=== PATIENT | female | born 1935 | race Caucasian/White ===

== ENCOUNTER 2022-08-10 11:35 | Emergency (ER) | payer MEDICARE, OTHER, SELFPAY ==
[2022-08-10] VITALS (10 sets, daily range): BP systolic 107–176; BP diastolic 53–70; PULSE 67–89; RESP 15–21; TEMP 36.5; O2SAT 95–99; BMI 27.4
--- NOTE | 2022-08-10 11:52 | ECG_ITS ---
The [facility] Test Date: 2022-08-10 Pat Name: Rebeca Gurrola Department: Room: - Gender: Female [employer]: : 1935 Requested By: MAMI DANIELS Order Number: [id number] Reading MD: MAMI DANIELS Measurements Intervals [place] Rate: 69 P: 72 MN: 210 QRS: 70 QRSD: 136 T: 18 QT: 430 QTc: 450 Interpretive Statements 1100 Sinus rhythm 1570 with occasional ventricular premature complexes 2231 First degree AV block 2450 Right bundle branch block 9150 abnormal ECG No previous ECG available for comparison Electronically Signed On 08-11-2022 6:59:51 EDT by MAMI DANIELS
--- NOTE | 2022-08-10 12:00 | XR_ITS ---
The [address] [address] Patient Name: HIRAM MADRID MRN: [id number] date: 1935 Sex: F Assigned Patient Location: ER Current Patient Location: ER Accession/Order Number: [id number] Exam Date: 08/10/2022 12:50 Report Date: 08/10/2022 13:15 At the request of: ROJELIO REYNOLDS Procedure: XR chest 1V EXAMINATION: XR chest 1V HISTORY: syncope COMPARISON: No relevant comparison available. FINDINGS: LUNGS: No significant pulmonary parenchymal abnormalities. VASCULATURE: No increased pulmonary vasculature. PLEURA: No pneumothorax, effusion, or pleural thickening. CARDIAC: No cardiomegaly or cardiac silhouette abnormality. MEDIASTINUM: No visible mass or adenopathy. BONES: No fracture or visible bone lesion. OTHER: Negative. IMPRESSION: 1. No acute cardiopulmonary process or significant chronic interstitial changes. Electronically authenticated by: JESUS BRUNO Date: 08/10/2022 13:15
--- NOTE | 2022-08-10 12:01 | CT_ITS ---
The [address] [address] Patient Name: HIRAM MADRID MRN: [id number] date: 1935 Sex: F Assigned Patient Location: ER Current Patient Location: ER Accession/Order Number: [id number] Exam Date: 08/10/2022 12:50 Report Date: 08/10/2022 13:21 At the request of: ROJELIO REYNOLDS Procedure: CT head/brain wo con EXAMINATION: CT head/brain wo con HISTORY: syncope COMPARISON: No relevant comparison available. TECHNIQUE: Axial CT images were obtained without IV contrast. Dose reduction techniques were achieved by using automated exposure control and/or adjustment of mA and/or kV according to patient size and/or use of iterative reconstruction technique. FINDINGS: BRAIN: No edema, hemorrhage, mass, acute infarction, or inappropriate atrophy. CSF SPACES: No hydrocephalus, subarachnoid hemorrhage, or mass. Appropriate for age. SKULL: No fracture, mass, or other significant visible lesion. SINUSES: No significant mucosal thickening or fluid on the limited views. ORBITS: No appreciable abnormality on the limited views. OTHER: Negative IMPRESSION: 1. No intracranial hemorrhage, mass, or appreciable acute abnormality. 2. Age consistent atrophy and chronic small vessel ischemic changes. Electronically authenticated by: JESUS BRUNO Date: 08/10/2022 13:21
[2022-08-10 12:41] LABS: Basophils Absolute Auto 0.1 10^3/uL (0.0-0.1); Basophils Percent Auto 0.5 % (0.2-2.0); Eosinophils Absolute Auto 0.1 10^3/uL (0.0-0.7); Eosinophils Percent Auto 0.7 % (0.9-7.0); Hematocrit 30.8 % (36.0-48.0); Hemoglobin 10.5 g/dL (12.0-16.0); Immature Granulocytes Abs Auto 0.08 10^3/uL (0.00-0.03); Immature Granulocytes Pct Auto 0.6 % (0.0-0.5); Mean Corpuscular HGB Conc 34.1 g/dL (29.9-35.2); Mean Corpuscular Hemoglobin 30.7 pg (26.7-34.0); Mean Corpuscular Volume 90.1 fL (81.0-99.0); Mean Platelet Volume 8.8 fL (9.5-13.5); Monocytes Absolute Auto 0.7 10^3/uL (0.3-0.8); Monocytes Percent Auto 5.3 % (1.7-12.0); Neutrophils Absolute Auto 10.5 10^3/uL (1.4-6.5); Neutrophils Percent Auto 77.9 % (43.0-75.0); Platelet Count 370 10^3/uL (150-450); Red Blood Count 3.42 10^6/uL (4.20-5.40); White Blood Count 13.5 10^3/uL (4.0-11.0)
[2022-08-10 12:45] LABS: Bilirubin Urine NEGATIVE (NEGATIVE); Blood Urine NEGATIVE (NEGATIVE); Clarity Urine CLEAR (CLEAR); Color Urine LT. YELLOW (YELLOW); Glucose Urine UA NEGATIVE (NEGATIVE); Ketones Urine NEGATIVE (NEGATIVE); Leukocyte Esterase Urine NEGATIVE (NEGATIVE); Nitrite Urine NEGATIVE (NEGATIVE); Protein Urine NEGATIVE (NEG/TRACE); Urobilinogen Urine 0.2 EU/dL (0.2-1.0); pH Urine 7.5 (5.0-9.0)
--- NOTE | 2022-08-10 12:45 | PC.NURSE ---
orthostatic vs obtained lying 153/59 74/min sitting 143/57 71/min standing 103/59 76/min ua obtained and pt walked w standby assistance slight dizziness noted
[2022-08-10 12:46] LABS: Urine Microscopic Indicated NO
[2022-08-10 13:02] LABS: Troponin I High Sensitivity 5.2 pg/mL (4.0-51.3)
[2022-08-10 13:13] LABS: Alanine Aminotransferase 18 U/L (14-59); Albumin Globulin Ratio 1.4; Alkaline Phosphatase 57 U/L (46-116); Anion Gap 12.2; Aspartate Amino Transferase 19 U/L (15-37); BUN Creatinine Ratio 22.9; Bilirubin Total 0.5 mg/dL (0.2-1.0); Calcium 9.3 mg/dL (8.5-10.1); Carbon Dioxide 28.2 mmol/L (21.0-32.0); Chloride 91 mmol/L (98-107); Estimated GFR (African America >60 (>=60); Estimated GFR (Non-African Ame >60 (>=60); Globulin 2.8 g/dL; Glucose 141 mg/dL (74-106); Potassium 3.4 mmol/L (3.5-5.1); Sodium 128 mmol/L (136-145); Total Protein 6.8 g/dL (6.4-8.2)
[2022-08-10] MEDS: 0.9 % SODIUM CHLORIDE 1,000 ML 999 ML IV (13:18)
--- NOTE | 2022-08-10 13:27 | PC.NURSE ---
this nurse talks w [facility] inn regard to pts appt set at 1pm today maritza in [facility] states pt already had all the lab work done today at dr domínguez office and doesnt see a need for the patient to follow up at this time with [facility]
--- NOTE | 2022-08-10 13:34 | ED_ITS ---
HPI - General Adult General Chief complaint: Syncope Stated complaint: SYNCOPE Time Seen by Provider: 08/10/22 12:00 Source: patient Limitations: no limitations History of Present Illness HPI narrative: patient apparently passed out this morning trying to make coffee. She is feeling dizzy off and on for a few weeks. This morning she began to feel dizzy and sat down. The daughter says the patient passed out and was unconscious for about a minute . After awakening, the patient had no complaint other than some continued residual dizziness. Earlier this month the patient had a similar episode and was evaluated at [facility]. She is found have acute urinary tract infection and possible kidney stone. She saw urology for follow-up and is scheduled to have a procedure tomorrow to evaluate whether not she needs a stent. She denies any flank pain or abdominal pain at this time. She's been taking Keflex for that. She denies any chest pain, shortness of breath, headache, visual changes, ringing in the ears, nausea or vomiting. Turning her head does not exacerbate her dizziness. She denies any vertigo symptoms. Related Data Home Medications Medication Instructions Recorded Confirmed amlodipine 10 mg tablet 10 mg PO QDAY 08/10/22 08/10/22 aspirin 81 mg capsule 81 mg PO DAILY 08/10/22 08/10/22 carvedilol 12.5 mg tablet 12.5 mg PO Q12H 08/10/22 08/10/22 cephalexin 500 mg capsule 500 mg PO Q12H 08/10/22 08/10/22 hydrochlorothiazide 25 mg tablet 25 mg PO QDAY 08/10/22 08/10/22 hyoscyamine sulfate 0.125 mg tablet 0.125 mg PO QID PRN dyspepsia 08/10/22 08/10/22 levothyroxine 88 mcg tablet 88 mcg PO QDAY 08/10/22 08/10/22 losartan 100 mg tablet 100 mg PO QDAY 08/10/22 08/10/22 naproxen 500 mg tablet mg 08/10/22 ondansetron 4 mg disintegrating 4 mg PO Q8H PRN nausea and vomiting 08/10/22 08/10/22 tablet oxycodone 5 mg tablet 5 mg PO Q6H PRN pain 08/10/22 08/10/22 potassium chloride 20 mEq 20 meq PO TID 08/10/22 08/10/22 tablet,extended release pravastatin 80 mg tablet 80 mg PO QDAY 08/10/22 08/10/22 tamsulosin 0.4 mg capsule 0.4 mg PO Q24H 08/10/22 08/10/22 Allergies Allergy/AdvReac Type Severity Reaction Status Date / Time atorvastatin Allergy Severe HIVES Verified 08/10/22 11:39 prednisone Allergy Severe Rash Verified 08/10/22 11:39 PFSH PFS Social History Smoking status: Never smoker Exam Narrative Exam Narrative: Nurses notes and vital signs reviewed and patient is not hypoxic. afebrile General: Well-appearing and in no apparent distress. Skin: Warm, dry, no pallor noted. No rash. Head: Normocephalic, atraumatic. Neck: Supple, non-tender. Eye: Pupils are equal, round and EOMI. No scleral icterus. Ears, Nose, Mouth, and Throat: TM are clear, no nasal mucosal hypertrophy. Oral mucosa is moist, no posterior oropharynx erythema, uvula is mid-line Cardiovascular: Regular Rate and Rhythm without murmur, gallop or rub. Respiratory: No accessory muscle use or respiratory distress. Lungs are clear to auscultation, no wheezing, rales or rhonchi Chest Wall: no tenderness Back: No midline thoracic or lumbar vertebral tenderness. No CVA tenderness Musculoskeletal: normal ROM, no calf or popliteal tenderness, no lower extremity edema/swelling GI: Abdomen is soft, non-distended. Normal bowel sounds. No masses appreciated. No tenderness to palpation. No rebound, guarding, or rigidity noted. Neurological: A&O x4. No cranial nerve dysfunction observed. No truncal ataxia. Moves all extremities. Sensation intact. Psychiatric: Cooperative and interactive. Normal mood and affect. Constitutional Vital Signs - 24 hr 08/10/22 11:39 08/10/22 11:57 08/10/22 11:38 Temperature 97.7 F Pulse Rate 73 Pulse Rate [Monitor] 72 Respiratory Rate 20 18 Blood Pressure 176/63 H Blood Pressure [Right Arm] 176/63 H Pulse Oximetry 98 95 97 Oxygen Delivery Method Room Air Room Air 08/10/22 11:38 08/10/22 12:06 08/10/22 12:08 Temperature Pulse Rate 67 71 74 Pulse Rate [Monitor] Respiratory Rate 15 16 21 Blood Pressure 176/63 H 153/59 H 143/57 H Blood Pressure [Right Arm] Pulse Oximetry 95 97 99 Oxygen Delivery Method 08/10/22 12:09 08/10/22 13:58 08/10/22 14:00 Temperature Pulse Rate 77 80 83 Pulse Rate [Monitor] Respiratory Rate 17 20 19 Blood Pressure 107/53 L 143/70 H 152/63 H Blood Pressure [Right Arm] Pulse Oximetry 98 97 Oxygen Delivery Method Course Vital Signs Vital signs: Vital Signs Pulse Rate 73 08/10/22 11:38 Respiratory Rate 18 08/10/22 11:38 Blood Pressure 176/63 H 08/10/22 11:38 Pulse Oximetry 97 08/10/22 11:38 Temperature 97.7 F 08/10/22 11:39 Pulse Rate 83 08/10/22 14:00 Respiratory Rate 19 08/10/22 14:00 Blood Pressure 152/63 H 08/10/22 14:00 Pulse Oximetry 97 08/10/22 14:00 Oxygen Delivery Method Room Air 08/10/22 11:57 Medical Decision Making MDM Narrative Medical decision making narrative: 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 Blood drawn and sent for evaluation. she was sent for noncontrast head CT. The patient was orthostatic with a 50mmHg drop in BP going from supine to standing. she was given a liter of normal saline IV fluid and then a second liter was ordered to be given. Head CT was unremarkable for acute pathology. Labs revealed elevated WBC 13.5 with left shift but UA was negative. Na and Cl decreased at 128 and 91. Potassium normal at 3.4. BUN slightly elevated at 19. Glc 141. Anesthesiologist came and saw the patient in the ER because she was supposed to get PAT at 1pm but could not because she was an ED patient. He said she is OK to get the procedure tomorrow. On recheck after the fluid boluses, the patient's repeat orthostatics no longer show a significant decrease in her systolic or diastolic BP. She was discharged home with recommendation to increase her salt and fluid intake and to keep her scheduled procedure tomorrow. Lab Data Lab results reviewed: Yes I reviewed the patient's lab results Labs: Lab Results 08/10/22 08/10/22 Range/Units 12:13 12:26 WBC 13.5 H (4.0-11.0) 10^3/uL RBC 3.42 L (4.20-5.40) 10^6/uL Hgb 10.5 L (12.0-16.0) g/dL Hct 30.8 L (36.0-48.0) % MCV 90.1 (81.0-99.0) fL MCH 30.7 (26.7-34.0) pg MCHC 34.1 (29.9-35.2) g/dL RDW 13.0 (11.0-15.0) % Plt Count 370 (150-450) 10^3/uL MPV 8.8 L (9.5-13.5) fL Neut % (Auto) 77.9 H (43.0-75.0) % Lymph % (Auto) 15.0 L (20.5-60.0) % [place] % (Auto) 5.3 (1.7-12.0) % Eos % (Auto) 0.7 L (0.9-7.0) % Baso % (Auto) 0.5 (0.2-2.0) % Neut # (Auto) 10.5 H (1.4-6.5) 10^3/uL Lymph # (Auto) 2.0 (1.2-3.8) 10^3/uL [place] # (Auto) 0.7 (0.3-0.8) 10^3/uL Eos # (Auto) 0.1 (0.0-0.7) 10^3/uL Baso # (Auto) 0.1 (0.0-0.1) 10^3/uL Abs Immat Gran (auto) 0.08 H (0.00-0.03) 10^3/uL Imm/Tot Granulo (auto) 0.6 H (0.0-0.5) % Sodium 128 L (136-145) mmol/L Potassium 3.4 L (3.5-5.1) mmol/L Chloride 91 L (98-107) mmol/L Carbon Dioxide 28.2 (21.0-32.0) mmol/L Anion Gap 12.2 BUN 19.0 H (7.0-18.0) mg/dL Creatinine 0.83 (0.55-1.02) mg/dL Est GFR ( Amer) >60 (>=60) Est GFR (Non-Af Amer) >60 (>=60) BUN/Creatinine Ratio 22.9 Glucose 141 H (74-106) mg/dL Calcium 9.3 (8.5-10.1) mg/dL Total Bilirubin 0.5 (0.2-1.0) mg/dL AST 19 (15-37) U/L ALT 18 (14-59) U/L Alkaline Phosphatase 57 (46-116) U/L Troponin I High Sens 5.2 (4.0-51.3) pg/mL Total Protein 6.8 (6.4-8.2) g/dL Albumin 4.0 (3.4-5.0) g/dL Globulin 2.8 g/dL Albumin/Globulin Ratio 1.4 Urine Color Lt. yellow (YELLOW) Urine Clarity Clear (CLEAR) Urine pH 7.5 (5.0-9.0) Ur Specific [place] 1.010 (1.005-1.025) Urine Protein Negative (NEG/TRACE) mg/dL Urine Glucose (UA) Negative (NEGATIVE) mg/dL Urine Ketones Negative (NEGATIVE) mg/dL Urine Occult Blood Negative (NEGATIVE) Urine Nitrite Negative (NEGATIVE) Urine Bilirubin Negative (NEGATIVE) Urine Urobilinogen 0.2 (0.2-1.0) EU/dL Ur Leukocyte Esterase Negative (NEGATIVE) Imaging Data CT scan - head: Attestation: I have reviewed the pertinent imaging results. Radiologist's impression: Patient Name: HIRAM MADRID MRN: [id number] date: 1935 Sex: F Assigned Patient Location: Current Patient Location: Accession/Order Number: [id number] Exam Date: 08/10/2022 12:50 Report Date: 08/10/2022 13:21 At the request of: ROJELIO REYNOLDS Procedure: CT head/brain wo con EXAMINATION: CT head/brain wo con HISTORY: syncope COMPARISON: No relevant comparison available. TECHNIQUE: Axial CT images were obtained without IV contrast. Dose reduction techniques were achieved by using automated exposure control and/or adjustment of mA and/or kV according to patient size and/or use of iterative reconstruction technique. FINDINGS: BRAIN: No edema, hemorrhage, mass, acute infarction, or inappropriate atrophy. CSF SPACES: No hydrocephalus, subarachnoid hemorrhage, or mass. Appropriate for age. SKULL: No fracture, mass, or other significant visible lesion. SINUSES: No significant mucosal thickening or fluid on the limited views. ORBITS: No appreciable abnormality on the limited views. OTHER: Negative IMPRESSION: 1. No intracranial hemorrhage, mass, or appreciable acute abnormality. 2. Age consistent atrophy and chronic small vessel ischemic changes. Electronically authenticated by: JESUS BRUNO Date: 08/10/2022 13:21 ECG Data Interpretation: EKG interpretation: Emergency Department physician interpretation. Normal sinus rhythm at 69bpm. 1st degree AV block. Right bundle branch block. PVC noted. No ST segment elevation or depression. Discharge Plan Discharge Chief Complaint: Syncope Clinical Impression: Syncope due to orthostatic hypotension, Orthostasis, Acute hyponatremia Patient Disposition: Home, Self-Care Time of Disposition Decision: 14:52 Prescriptions / Home Meds: No Action amlodipine 10 mg tablet 10 mg PO QDAY carvedilol 12.5 mg tablet 12.5 mg PO Q12H cephalexin 500 mg capsule 500 mg PO Q12H hydrochlorothiazide 25 mg tablet 25 mg PO QDAY levothyroxine 88 mcg tablet 88 mcg PO QDAY losartan 100 mg tablet 100 mg PO QDAY naproxen 500 mg tablet ondansetron 4 mg tablet,disintegrating 4 mg PO Q8H PRN (Reason: nausea and vomiting) oxycodone 5 mg tablet 5 mg PO Q6H PRN (Reason: pain) pravastatin 80 mg tablet 80 mg PO QDAY tamsulosin 0.4 mg capsule 0.4 mg PO Q24H potassium chloride 20 mEq tablet extended release 20 meq PO TID hyoscyamine sulfate 0.125 mg tablet 0.125 mg PO QID PRN (Reason: dyspepsia) aspirin 81 mg capsule 81 mg PO DAILY Instructions: Hyponatremia (ED), Syncope (ED) Stand Alone Forms: Portal Instructions Referrals: Addy Clemente MD [Primary Care Provider] - 1 week
[2022-08-10] MEDS: 0.9 % SODIUM CHLORIDE 1,000 ML 1000 ML IV (14:07)
--- NOTE | 2022-08-10 15:00 | PC.NURSE ---
lying 89/min 154/66 sitting 91/min 148/63 standing 91/min 144/56
== END 2022-08-10 15:37 | disposition home or self-care (01) ==
PROVIDERS: Emergency Provider Emergency Medicine; PCP Family Medicine
DX: I95.1 Orthostatic hypotension (principal); E87.1 Hypo-osmolality and hyponatremia; Z87.440 Personal history of urinary (tract) infections; Z79.82 Long term (current) use of aspirin; Z79.899 Other long term (current) drug therapy; Z79.890 Hormone replacement therapy
CPT/HCPCS: 36415; 70450; 71045; 80053; 81003; 84484; 85025; 93005; 99285

== ENCOUNTER 2022-08-11 11:43 | Day surgery (SDC) | payer MEDICARE, OTHER, SELFPAY ==
[2022-08-11] VITALS (10 sets, daily range): BP systolic 139–162; BP diastolic 62–84; PULSE 78–89; RESP 14–89; TEMP 36.6; O2SAT 95–99; BMI 27.2
[2022-08-11] MEDS: LACTATED RINGER'S SOLUTION 1,000 ML 50 ML IV (12:41)
[2022-08-11] MEDS: CEFAZOLIN SODIUM/DEXTROSE,ISO 1 GM/50 ML IV.SOLN IV (14:55)
[2022-08-11] MEDS: IOHEXOL 240 MG/ML - 50 ML VIAL INJ (15:35)
--- NOTE | 2022-08-11 15:53 | P.URON_ITS ---
Urology Surgery Operative Note Operative Note Procedure Date: 08/11/22 Time Out Performed: yes Pre-op Diagnosis: right flank pain and right hydroureteronephrosis Post-op Diagnosis: same plus distal ureteral stenosis Procedures performed: #1. Cystoscopy. #2. Right retrograde pyelogram. #3. Right rigid ureteral dilation. #4. Right ureteroscopy. #5. Placement of 7 Hungarian variable length right ureteral stent Anesthesia: EMMA Primary Surgeon: Raymond Brown Complications: none Estimated blood loss (mL): 0 Findings: distal right ureteral stenosis Specimens: none Drains: none Indications for Procedures: this lady has right flank pain and was found to have right hydroureteronephrosis without any evidence of stones by CT scan. She now presents for cystoscopy retrograde pyelogram ureteroscopy and possible stent placement. She has signed an informed consent after all the risks were explained. Detailed description of Procedure: The patient was brought to the operating room and placed on the operating room table in the supine position. SCDs were placed on the lower extremities and turned on and functioning during the entire case. Timeout was done by all parties in the room. We all agreed upon the patient's identification and the planned procedures for this patient. Genn. anesthesia was then administered. The patient was then repositioned into the modified dorsal lithotomy position. All pressure points were satisfactorily padded. Genitalia were sterilely prepped and draped in usual fashion.I started by passing a 22 Hungarian Olympus cystoscope per urethra and into the bladder. Panendoscopy showed no evidence of any tumors or stones. She had a moderate cystocele. I then passed an 8 Hungarian cone-tipped catheter and did a right retrograde pyelogram. This showed narrowed distal 3 cm of the ureter and narrowed UPJ region and hydronephrosis. I then passed a Glidewire through the scope and guided up the left ureter into the kidney. I then used a 8 and 10 Hungarian rigid dilator to dilate the distal ureter. This was actually difficult due to significant stenosis. I then removed the cystoscope and then passed a flexible ureteroscope over the wire and into the ureter. It was difficult to get the ureteroscope through the distal ureter. As I ascended up the ureter I found no evidence of any stones or neoplasms. UPJ although narrow it was not pathologically stenosed. Ureteroscope was removed . I then backloaded the cystoscope over the wire and passed it into the bladder. I then slid a 7 Hungarian variable length ureteral stent over the wire up into the kidney. The wire was removed and there were good curls in the kidney and in the bladder. The anesthetic was then reversed. She was then transferred to a [facility] bed and wheeled to PACU in stable condition.
== END 2022-08-11 17:10 | disposition home or self-care (01) ==
PROVIDERS: PCP Family Medicine; Visit Provider Urology
PROC: (CPT 52332; principal; 2022-08-11 13:00)
DX: N13.1 Hydronephrosis with ureteral stricture, not elsewhere classified (principal); R10.9 Unspecified abdominal pain; M19.90 Unspecified osteoarthritis, unspecified site; E78.5 Hyperlipidemia, unspecified; G62.9 Polyneuropathy, unspecified; E07.9 Disorder of thyroid, unspecified; I10 Essential (primary) hypertension; Z79.01 Long term (current) use of anticoagulants; I48.91 Unspecified atrial fibrillation; H91.90 Unspecified hearing loss, unspecified ear; Z90.49 Acquired absence of other specified parts of digestive tract; Z79.82 Long term (current) use of aspirin; Z79.899 Other long term (current) drug therapy
CPT/HCPCS: 52332; 52344; 74420; C1874; J2704; Q9966

== ENCOUNTER 2022-08-15 14:23 | Outpatient (OUT) | payer MEDICARE, OTHER, SELFPAY ==
[2022-08-15 15:23] LABS: Bilirubin Urine NEGATIVE (NEGATIVE); Blood Urine LARGE (NEGATIVE); Color Urine LT. YELLOW (YELLOW); Glucose Urine UA NEGATIVE (NEGATIVE); Ketones Urine NEGATIVE (NEGATIVE); Leukocyte Esterase Urine SMALL (NEGATIVE); Nitrite Urine NEGATIVE (NEGATIVE); Protein Urine 30 mg/dL (NEG/TRACE); Urobilinogen Urine 0.2 EU/dL (0.2-1.0); pH Urine 7.5 (5.0-9.0)
[2022-08-15 15:25] LABS: Alanine Aminotransferase 25 U/L (14-59); Albumin Globulin Ratio 0.9; Albumin Level 2.9 g/dL (3.4-5.0); Alkaline Phosphatase 56 U/L (46-116); Aspartate Amino Transferase 29 U/L (15-37); BUN Creatinine Ratio 16.3; Bilirubin Total 0.3 mg/dL (0.2-1.0); Calcium 8.6 mg/dL (8.5-10.1); Carbon Dioxide 25.9 mmol/L (21.0-32.0); Chloride 89 mmol/L (98-107); Estimated GFR (African America >60 (>=60); Estimated GFR (Non-African Ame >60 (>=60); Globulin 3.3 g/dL; Glucose 130 mg/dL (74-106); Sodium 125 mmol/L (136-145); Total Protein 6.2 g/dL (6.4-8.2)
[2022-08-15 15:27] LABS: Basophils Absolute Auto 0.1 10^3/uL (0.0-0.1); Basophils Percent Auto 0.2 % (0.2-2.0); Eosinophils Absolute Auto 0.1 10^3/uL (0.0-0.7); Eosinophils Percent Auto 0.4 % (0.9-7.0); Hemoglobin 7.4 g/dL (12.0-16.0); Immature Granulocytes Abs Auto 0.32 10^3/uL (0.00-0.03); Immature Granulocytes Pct Auto 1.3 % (0.0-0.5); Lymphocytes Absolute Auto 3.1 10^3/uL (1.2-3.8); Lymphocytes Percent Auto 12.3 % (20.5-60.0); Mean Corpuscular HGB Conc 39.4 g/dL (29.9-35.2); Mean Corpuscular Hemoglobin 36.6 pg (26.7-34.0); Mean Corpuscular Volume 93.1 fL (81.0-99.0); Mean Platelet Volume 9.3 fL (9.5-13.5); Monocytes Absolute Auto 1.5 10^3/uL (0.3-0.8); Monocytes Percent Auto 6.1 % (1.7-12.0); Neutrophils Absolute Auto 19.9 10^3/uL (1.4-6.5); Neutrophils Percent Auto 79.7 % (43.0-75.0); Platelet Count 395 10^3/uL (150-450); Red Blood Count 2.02 10^6/uL (4.20-5.40); Red Cell Distribution Width 13.1 % (11.0-15.0)
[2022-08-15 15:32] LABS: Potassium 2.9 mmol/L (3.5-5.1)
[2022-08-15 15:33] LABS: Clarity Urine SLIGHTLY CLOUDY (CLEAR); Hematocrit 18.8 % (36.0-48.0)
[2022-08-15 15:34] LABS: WBC Urine 0-2 #/HPF (NONE SEEN)
[2022-08-15 15:35] LABS: Bacteria Urine NONE SEEN #/HPF (NONE SEEN); Cast Seen? NONE SEEN #/LPF (NONE SEEN); Crystals Seen? None Seen #/HPF (None Seen); Mucus Urine NONE SEEN (NONE SEEN); RBC Urine 20-50 #/HPF (0-2); Squamous Epithelial Cell Urine FEW #/LPF (NONE/RARE); Urine Culture Indicated ALREADY ORDERED
== END 2022-08-15 14:24 | disposition home or self-care (01) ==
LOC: LAB 14:25
PROVIDERS: PCP Family Medicine; Visit Provider Family Medicine
DX: R55 Syncope and collapse (principal); R53.83 Other fatigue
CPT/HCPCS: 36415; 80053; 81001; 85025; 87086

== ENCOUNTER 2022-08-16 12:16 | Observation (INO) | payer MEDICARE, OTHER, SELFPAY ==
[2022-08-16] VITALS (18 sets, daily range): BP systolic 134–164; BP diastolic 55–73; PULSE 63–85; RESP 16–18; TEMP 36.7–36.9; O2SAT 95–98; BMI 26.9
--- NOTE | 2022-08-16 12:35 | XR_ITS ---
The [address] [address] Patient Name: HIRAM MADRID MRN: [id number] date: 1935 Sex: F Assigned Patient Location: MS Current Patient Location: Accession/Order Number: [id number] Exam Date: 08/16/2022 13:40 Report Date: 08/16/2022 14:04 At the request of: MAMI DANIELS Procedure: XR acute abdomen series EXAMINATION: XR acute abdomen series 08/16/2022 11:00 AM PDT HISTORY: Abd Pain COMPARISONS: Chest x-ray 08/10/2022. FINDINGS: Chest findings: Lines/tubes/other: None. Heart and mediastinum: The heart and the mediastinum are within normal limits for technique. Bones: No acute osseous abnormality. Lungs: The lungs are clear. There is no evidence of pneumonia or pulmonary edema. Pleura: There is no significant pleural effusion or pneumothorax. Other: None. Abdominal findings: Nonobstructive bowel gas pattern. No pneumoperitoneum, pneumatosis, or portal venous gas. No abnormal soft tissue calcifications. Stool burden is mildly above-average. Right-sided double-J ureteral stent present. Lumbar fusion hardware and clips in the right upper quadrant noted. Serpiginous vascular calcification the left upper quadrant. Ovoid opacity projecting over the proximal right ureter is of uncertain etiology. IMPRESSION: 1. No acute cardiopulmonary abnormality. 2. Ovoid opacity projecting over the right proximal ureter measuring 17 mm is of uncertain etiology. 3. Right-sided double-J ureteral stent which appears appropriately positioned. 4. Mildly above-average stool burden. Electronically authenticated by: JOE WALLACE Date: 08/16/2022 14:04
[2022-08-16 13:04] LABS: Basophils Absolute Auto 0.1 10^3/uL (0.0-0.1); Basophils Percent Auto 0.4 % (0.2-2.0); Eosinophils Absolute Auto 0.3 10^3/uL (0.0-0.7); Eosinophils Percent Auto 1.7 % (0.9-7.0); Hemoglobin 7.2 g/dL (12.0-16.0); Immature Granulocytes Abs Auto 0.28 10^3/uL (0.00-0.03); Immature Granulocytes Pct Auto 1.9 % (0.0-0.5); Lymphocytes Absolute Auto 2.9 10^3/uL (1.2-3.8); Lymphocytes Percent Auto 19.8 % (20.5-60.0); Mean Corpuscular HGB Conc 35.5 g/dL (29.9-35.2); Mean Corpuscular Hemoglobin 31.3 pg (26.7-34.0); Mean Corpuscular Volume 88.3 fL (81.0-99.0); Mean Platelet Volume 8.7 fL (9.5-13.5); Monocytes Percent Auto 6.8 % (1.7-12.0); Neutrophils Absolute Auto 10.1 10^3/uL (1.4-6.5); Neutrophils Percent Auto 69.4 % (43.0-75.0); Platelet Count 403 10^3/uL (150-450); Red Cell Distribution Width 13.2 % (11.0-15.0); White Blood Count 14.6 10^3/uL (4.0-11.0)
[2022-08-16 13:15] LABS: Hematocrit 20.3 % (36.0-48.0)
[2022-08-16 13:23] LABS: Lactate/Lactic Acid 1.4 mmol/L (0.4-2.0)
[2022-08-16 13:29] LABS: Alanine Aminotransferase 26 U/L (14-59); Albumin Globulin Ratio 0.9; Albumin Level 2.9 g/dL (3.4-5.0); Alkaline Phosphatase 56 U/L (46-116); Anion Gap 12.8; Aspartate Amino Transferase 20 U/L (15-37); BUN Creatinine Ratio 15.5; Bilirubin Total 0.3 mg/dL (0.2-1.0); Calcium 8.9 mg/dL (8.5-10.1); Carbon Dioxide 27.1 mmol/L (21.0-32.0); Chloride 89 mmol/L (98-107); Estimated GFR (African America >60 (>=60); Estimated GFR (Non-African Ame >60 (>=60); Globulin 3.2 g/dL; Glucose 106 mg/dL (74-106); Magnesium 1.1 mg/dL (1.8-2.4); Sodium 126 mmol/L (136-145); Thyroid Stimulating Hormone 2.166 uIU/mL (0.358-3.740); Total Protein 6.1 g/dL (6.4-8.2)
[2022-08-16 13:47] LABS: Potassium 2.9 mmol/L (3.5-5.1)
[2022-08-16] MEDS: POTASSIUM CHLORIDE 10 MEQ ER TABLET 20 MEQ PO ×2 (15:03→21:34)
[2022-08-16] MEDS: FERROUS SULFATE 325 MG TABLET PO (15:03)
[2022-08-16] MEDS: PANTOPRAZOLE SODIUM 40 MG VIAL IV (15:03)
[2022-08-16] MEDS: 0.9 % SODIUM CHLORIDE 250 ML IV.SOLN IV (16:30)
[2022-08-16] MEDS: POTASSIUM CHLORIDE 40 MEQ in 0.9 % SODIUM CHLORIDE 250 ML 67.5 MEQ IV (16:33)
[2022-08-16] MEDS: HYOSCYAMINE SULFATE 0.125 MG TAB.SUBL SL (20:19)
[2022-08-16] MEDS: CARVEDILOL 12.5 MG TABLET PO (21:34)
[2022-08-17] VITALS (10 sets, daily range): BP systolic 120–128; BP diastolic 63–64; PULSE 69–87; RESP 16–18; TEMP 37.1; O2SAT 94–95
[2022-08-17 04:52] LABS: Basophils Absolute Auto 0.1 10^3/uL (0.0-0.1); Basophils Percent Auto 0.8 % (0.2-2.0); Eosinophils Absolute Auto 0.3 10^3/uL (0.0-0.7); Hematocrit 28.4 % (36.0-48.0); Hemoglobin 9.7 g/dL (12.0-16.0); Immature Granulocytes Abs Auto 0.28 10^3/uL (0.00-0.03); Immature Granulocytes Pct Auto 1.9 % (0.0-0.5); Lymphocytes Absolute Auto 2.8 10^3/uL (1.2-3.8); Lymphocytes Percent Auto 19.5 % (20.5-60.0); Mean Corpuscular HGB Conc 34.2 g/dL (29.9-35.2); Mean Corpuscular Hemoglobin 29.2 pg (26.7-34.0); Mean Corpuscular Volume 85.5 fL (81.0-99.0); Mean Platelet Volume 8.9 fL (9.5-13.5); Monocytes Absolute Auto 1.2 10^3/uL (0.3-0.8); Monocytes Percent Auto 8.4 % (1.7-12.0); Neutrophils Absolute Auto 9.8 10^3/uL (1.4-6.5); Neutrophils Percent Auto 67.4 % (43.0-75.0); Platelet Count 353 10^3/uL (150-450); Red Blood Count 3.32 10^6/uL (4.20-5.40); Red Cell Distribution Width 17.9 % (11.0-15.0); White Blood Count 14.5 10^3/uL (4.0-11.0)
[2022-08-17 05:14] LABS: Alanine Aminotransferase 24 U/L (14-59); Albumin Globulin Ratio 0.8; Albumin Level 2.6 g/dL (3.4-5.0); Alkaline Phosphatase 48 U/L (46-116); Anion Gap 11.4; Aspartate Amino Transferase 23 U/L (15-37); BUN Creatinine Ratio 17.8; Bilirubin Total 1.3 mg/dL (0.2-1.0); Calcium 8.3 mg/dL (8.5-10.1); Carbon Dioxide 26.4 mmol/L (21.0-32.0); Chloride 97 mmol/L (98-107); Estimated GFR (African America >60 (>=60); Estimated GFR (Non-African Ame >60 (>=60); Globulin 3.2 g/dL; Glucose 116 mg/dL (74-106); Magnesium 1.2 mg/dL (1.8-2.4); Potassium 3.8 mmol/L (3.5-5.1); Sodium 131 mmol/L (136-145); Total Protein 5.8 g/dL (6.4-8.2)
[2022-08-17] MEDS: LEVOTHYROXINE SODIUM 88 MCG TABLET PO (05:57)
[2022-08-17] MEDS: POTASSIUM CHLORIDE 10 MEQ ER TABLET 20 MEQ PO (05:57)
--- NOTE | 2022-08-17 08:27 | P.PN_ITS ---
Progress Note: Subjective Subjective Interval history: Today Exam Constitutional Vital Signs - 24 hr 08/16/22 12:49 08/16/22 13:12 08/16/22 13:28 Temperature 98.0 F 98.0 F Pulse Rate 77 77 Respiratory Rate 16 16 Blood Pressure Blood Pressure [Left Arm] 148/57 H 148/57 H Pulse Oximetry 97 97 96 Oxygen Delivery Method Room Air Room Air Room Air 08/16/22 16:30 08/16/22 17:11 08/16/22 17:27 Temperature 98.1 F 98.1 F Pulse Rate 78 82 79 Respiratory Rate 16 16 Blood Pressure 151/55 H 164/64 H Blood Pressure [Left Arm] Pulse Oximetry 97 97 Oxygen Delivery Method Room Air Room Air 08/16/22 18:22 08/16/22 18:27 08/16/22 18:50 Temperature 98.2 F Pulse Rate 85 81 Respiratory Rate 16 Blood Pressure 154/63 H Blood Pressure [Left Arm] Pulse Oximetry 97 98 Oxygen Delivery Method Room Air Room Air 08/16/22 19:27 08/16/22 20:12 08/16/22 20:37 Temperature 98.2 F 98.2 F 98.1 F Pulse Rate 79 79 63 Respiratory Rate 17 17 17 Blood Pressure 152/69 H 158/69 H 148/73 H Blood Pressure [Left Arm] Pulse Oximetry 96 Oxygen Delivery Method Room Air Room Air 08/16/22 20:32 08/16/22 20:48 08/16/22 21:32 Temperature 98.1 F 98.4 F Pulse Rate 63 79 77 Respiratory Rate 17 16 Blood Pressure 148/73 H 142/68 H Blood Pressure [Left Arm] Pulse Oximetry 96 96 Oxygen Delivery Method 08/16/22 22:00 08/16/22 22:32 08/16/22 23:32 Temperature 98.5 F 98.4 F Pulse Rate 72 77 77 Respiratory Rate 17 18 Blood Pressure 134/70 H 155/67 H Blood Pressure [Left Arm] Pulse Oximetry 95 Oxygen Delivery Method Room Air 08/17/22 00:00 08/17/22 02:04 08/17/22 02:00 Temperature 98.7 F Pulse Rate 75 71 69 Respiratory Rate 18 Blood Pressure 128/63 H Blood Pressure [Left Arm] Pulse Oximetry 94 L Oxygen Delivery Method Room Air 08/17/22 04:00 08/17/22 06:00 08/17/22 05:00 Temperature 98.8 F Pulse Rate 70 75 76 Respiratory Rate 16 Blood Pressure Blood Pressure [Left Arm] 120/64 H Pulse Oximetry 95 Oxygen Delivery Method 08/17/22 08:01 Temperature Pulse Rate 87 Respiratory Rate Blood Pressure Blood Pressure [Left Arm] Pulse Oximetry Oxygen Delivery Method Common normals: no apparent distress Exam limitations: no altered mental status Chest Common normals: inspection of chest normal Respiratory Common normals: normal respiratory effort, no retractions and no use of accessory muscles Cardio Common normals: no JVD, regular rate, regular rhythm and S1 normal heart sound GI Common normals: Normal to inspection, nondistended, normoactive bowel sounds present Progress Note: Objective Labs Labs: Short CBC 08/16/22 08/17/22 Range/Units 12:57 04:14 WBC 14.6 H 14.5 H (4.0-11.0) 10^3/uL Hgb 7.2 L 9.7 L (12.0-16.0) g/dL Hct 20.3 L* 28.4 L (36.0-48.0) % Plt Count 403 353 (150-450) 10^3/uL BMP 08/16/22 08/17/22 12:57 04:14 Sodium 126 L 131 L Potassium 2.9 L* 3.8 Chloride 89 L 97 L Carbon Dioxide 27.1 26.4 BUN 13.0 13.0 Creatinine 0.84 0.73 Glucose 106 116 H Calcium 8.9 8.3 L Liver Function 08/16/22 08/17/22 Range/Units 12:57 04:14 Total Bilirubin 0.3 1.3 H (0.2-1.0) mg/dL AST 20 23 (15-37) U/L ALT 26 24 (14-59) U/L Alkaline Phosphatase 56 48 (46-116) U/L Albumin 2.9 L 2.6 L (3.4-5.0) g/dL Progress Note: A&P Assessment and Plan (1) Syncope due to orthostatic hypotension: (2) Orthostasis: (3) Acute hyponatremia: Plan Acute upper contact gastrointestinal blood loss anemia secondary to acute upper gastrointestinal bleeding-bleeding appears to have stopped, will repeat CBC later today just to ensure, if stable later today and patient ambulating well with walker she can be discharged home in improving condition. Medications see list. Follow-up with me in the office as an outpatient within the next week. Hyponatremia-improved, will monitor as an outpatient [id number] as an outpatient
--- NOTE | 2022-08-17 08:42 | CM.NOTE ---
Rounds made with Dr. Clemente, pt verbalizes feeling much better today. Pt up ad aleta in room. H&H recheck this afternoon and PT evaluation today. If ok will discharge to home this afternoon. SW will follow for any discharge needs. Pt denies any discharge needs at present time. Pt does have walker at home and feels stable with ambulation. Pt is going to stay at daughter's home a couple days after discharge from hospital to insure safety transitioning to home alone.
[2022-08-17] MEDS: PANTOPRAZOLE SODIUM 40 MG VIAL IV (09:21)
[2022-08-17] MEDS: CARVEDILOL 12.5 MG TABLET PO (09:21)
[2022-08-17] MEDS: FERROUS SULFATE 325 MG TABLET PO (09:21)
[2022-08-17 13:15] LABS: Basophils Absolute Auto 0.1 10^3/uL (0.0-0.1); Basophils Percent Auto 0.9 % (0.2-2.0); Eosinophils Absolute Auto 0.4 10^3/uL (0.0-0.7); Eosinophils Percent Auto 2.4 % (0.9-7.0); Hematocrit 34.3 % (36.0-48.0); Hemoglobin 11.6 g/dL (12.0-16.0); Immature Granulocytes Abs Auto 0.37 10^3/uL (0.00-0.03); Immature Granulocytes Pct Auto 2.4 % (0.0-0.5); Lymphocytes Percent Auto 19.3 % (20.5-60.0); Mean Corpuscular HGB Conc 33.8 g/dL (29.9-35.2); Mean Corpuscular Hemoglobin 28.7 pg (26.7-34.0); Mean Corpuscular Volume 84.9 fL (81.0-99.0); Mean Platelet Volume 8.3 fL (9.5-13.5); Monocytes Absolute Auto 1.3 10^3/uL (0.3-0.8); Monocytes Percent Auto 8.3 % (1.7-12.0); Neutrophils Absolute Auto 10.2 10^3/uL (1.4-6.5); Neutrophils Percent Auto 66.7 % (43.0-75.0); Platelet Count 404 10^3/uL (150-450); Red Blood Count 4.04 10^6/uL (4.20-5.40); Red Cell Distribution Width 18.8 % (11.0-15.0); White Blood Count 15.3 10^3/uL (4.0-11.0)
--- NOTE | 2022-08-17 13:33 | CM.NOTE ---
Medicare Outpatient Observation Notice discussed with pt, pt verbalizes understanding and signs paper. Original given to pt and copy placed on pt's chart.
== END 2022-08-17 13:57 | disposition home or self-care (01) ==
PROVIDERS: Admitting Provider Family Medicine; PCP Family Medicine; Visit Provider Family Medicine
DX: D62 Acute posthemorrhagic anemia (principal); I95.1 Orthostatic hypotension; E87.1 Hypo-osmolality and hyponatremia; K92.2 Gastrointestinal hemorrhage, unspecified; E87.6 Hypokalemia; Z79.899 Other long term (current) drug therapy; Z79.890 Hormone replacement therapy
CPT/HCPCS: 36415; 36430; 74022; 80053; 81001; 83605; 83735; 84436; 84443; 85025; 86677; 86850; 86900; 86901; 87493; 87507; 94667; 94668; 94761; 96365; 96366; 96375; 96376; 97161; 97530; G0378; G0379; J3480; P9016

== ENCOUNTER 2022-10-14 09:56 | Outpatient (OUT) | payer MEDICARE, OTHER, SELFPAY ==
[2022-10-14 10:22] LABS: Basophils Absolute Auto 0.1 10^3/uL (0.0-0.1); Basophils Percent Auto 0.9 % (0.2-2.0); Eosinophils Absolute Auto 0.3 10^3/uL (0.0-0.7); Eosinophils Percent Auto 3.4 % (0.9-7.0); Hematocrit 38.6 % (36.0-48.0); Hemoglobin 13.1 g/dL (12.0-16.0); Immature Granulocytes Abs Auto 0.04 10^3/uL (0.00-0.03); Immature Granulocytes Pct Auto 0.5 % (0.0-0.5); Lymphocytes Percent Auto 24.6 % (20.5-60.0); Mean Corpuscular HGB Conc 33.9 g/dL (29.9-35.2); Mean Corpuscular Hemoglobin 30.3 pg (26.7-34.0); Mean Corpuscular Volume 89.4 fL (81.0-99.0); Mean Platelet Volume 8.4 fL (9.5-13.5); Monocytes Absolute Auto 0.6 10^3/uL (0.3-0.8); Monocytes Percent Auto 7.6 % (1.7-12.0); Neutrophils Absolute Auto 5.1 10^3/uL (1.4-6.5); Platelet Count 418 10^3/uL (150-450); Red Blood Count 4.32 10^6/uL (4.20-5.40); Red Cell Distribution Width 14.1 % (11.0-15.0); White Blood Count 8.1 10^3/uL (4.0-11.0)
[2022-10-14 11:52] LABS: Alanine Aminotransferase 22 U/L (14-59); Albumin Level 3.8 g/dL (3.4-5.0); Alkaline Phosphatase 66 U/L (46-116); Anion Gap 14.3; Aspartate Amino Transferase 20 U/L (15-37); BUN Creatinine Ratio 13.4; Bilirubin Total 0.4 mg/dL (0.2-1.0); Calcium 9.7 mg/dL (8.5-10.1); Carbon Dioxide 28.3 mmol/L (21.0-32.0); Chloride 92 mmol/L (98-107); Estimated GFR (African America >60 (>=60); Estimated GFR (Non-African Ame >60 (>=60); Globulin 3.9 g/dL; Glucose 105 mg/dL (74-106); Potassium 3.6 mmol/L (3.5-5.1); Sodium 131 mmol/L (136-145); Total Protein 7.7 g/dL (6.4-8.2)
== END 2022-10-14 09:57 | disposition home or self-care (01) ==
LOC: LAB 09:59
PROVIDERS: PCP Family Medicine; Visit Provider Nurse Practitioner
DX: I10 Essential (primary) hypertension (principal); R60.0 Localized edema; R55 Syncope and collapse; E78.2 Mixed hyperlipidemia
CPT/HCPCS: 36415; 80053; 85025

== ENCOUNTER 2022-10-31 11:35 | Outpatient (OUT) | payer MEDICARE, OTHER, SELFPAY ==
[2022-10-31 12:34] LABS: Anion Gap 10.8; BUN Creatinine Ratio 17.3; Calcium 9.9 mg/dL (8.5-10.1); Carbon Dioxide 28.9 mmol/L (21.0-32.0); Chloride 92 mmol/L (98-107); Estimated GFR (African America >60 (>=60); Estimated GFR (Non-African Ame >60 (>=60); Glucose 107 mg/dL (74-106); Potassium 3.7 mmol/L (3.5-5.1); Sodium 128 mmol/L (136-145)
== END 2022-10-31 11:36 | disposition home or self-care (01) ==
LOC: LAB 11:36
PROVIDERS: PCP Family Medicine; Visit Provider Nurse Practitioner
DX: I10 Essential (primary) hypertension (principal)
CPT/HCPCS: 36415; 80048

== ENCOUNTER 2022-11-10 20:26 | Observation (INO) | payer MEDICARE, OTHER, SELFPAY ==
[2022-11-10 20:30] VITALS: BP 210/80; PULSE 86; RESP 16; TEMP 36.8; O2SAT 98; BMI 26.2
--- NOTE | 2022-11-10 20:50 | ECG_ITS ---
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
--- NOTE | 2022-11-10 20:52 | ED_ITS ---
HPI - Abdominal Pain General Chief Complaint: Abdominal Pain Stated Complaint: syncopy and hematuria Time Seen by Provider: 11/10/22 20:50 Source: patient and family History of Present Illness HPI narrative: This 86-year-old female with a history of syncopal events who was admitted in July and required 2 units of blood after having some gastrointestinal bleeding presents for evaluation of recurrent gastrointestinal bleeding and left lower quadrant abdominal pain. The patient states she was shopping in [place] when she felt the need to have a bowel movement. She went to the bathroom and had a bowel movement and shortly thereafter had an episode where she felt dizzy like she was going to faint. She states she may have passed out for a couple of seconds but somebody was able to get her into a wheelchair before she fell. She states she then went home and rested. He states she had some mild stomach cramping and took some Pepto-Bismol and when she got up to use the bathroom there was a small pool of blood in the toilet. She states this happened approximately 3 times. She has intermittent left lower quadrant abdominal pain and at times mild nausea. She denies any chest pain or shortness of breath. She did have a colonoscopy approximately 5 years ago at [facility]. Related Data Home Medications Medication Instructions Recorded Confirmed amlodipine 10 mg tablet 10 mg PO QDAY 08/10/22 11/10/22 aspirin 81 mg capsule 81 mg PO DAILY 08/10/22 11/10/22 carvedilol 12.5 mg tablet 12.5 mg PO Q12H 08/10/22 11/10/22 hydrochlorothiazide 25 mg tablet 25 mg PO QDAY 08/10/22 11/10/22 levothyroxine 88 mcg tablet 88 mcg PO QDAY 08/10/22 11/10/22 losartan 100 mg tablet 100 mg PO QDAY 08/10/22 11/10/22 potassium chloride 20 mEq 20 meq PO TID 08/10/22 11/10/22 tablet,extended release pravastatin 80 mg tablet 80 mg PO QDAY 08/10/22 11/10/22 Previous Rx's Medication Instructions Recorded pantoprazole 40 mg tablet,delayed 40 mg PO DAILY #30 tabs 08/17/22 release (Protonix) Allergies Allergy/AdvReac Type Severity Reaction Status Date / Time atorvastatin Allergy Severe HIVES Verified 09/21/23 20:35 prednisone Allergy Severe Rash Verified 11/10/22 20:35 Review of Systems ROS Status of ROS 10 or more systems reviewed and unremarkable except as noted in history and below [facility] Medical History (Updated 11/10/22 @ 23:53 by Lesly Ramos MD) Surgical History (Updated 08/11/22 @ 12:18 by Victoria Johnson RN) Family History (Updated 08/16/22 @ 12:47 by Angela Bellamy) Mother Family history of CHF (congestive heart failure) Father Lupus Brother Family history of myocardial infarction Family history of stroke Other Arthritis Family history of hypertension Social History (Updated 08/16/22 @ 12:49 by Angela Bellamy) Within the past year, how often did you have a drink containing alcohol: never Score interpretation: A score less than 3 is consistent with normal alcohol consumption. 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 Highest level of school completed/degree received: 8th grade Are you now , , , , never or living with a partner: In a typical week, how many times do you talk on the telephone with family, friends, or neighbors: 3 or more times per week How often do you get together with friends or relatives: 3 or more times per week How often do you attend scientology or rastafari services: 4 or more times per year Do you belong to any clubs or organizations such as scientology groups unions, fraternal or athletic groups, or school groups: yes Total score: 3 Score interpretation: A score of greater than or equal to 2 indicates the lowest level of social isolation. Little interest or pleasure in doing things: not at all Feeling down, depressed, or hopeless: not at all Feel stressed/tense/nervous/anxious/difficulty sleeping: not at all Life stressors: recent of family or friend Do you think of yourself as: straight/heterosexual Gender Identity: female Exam Narrative Exam Narrative: Nurses note and vital signs reviewed; Patient has no elevated blood pressure 210/80, normal pulse, she is afebrile, she is not hypoxic with pulse ox 98 percent on room air General: The patient appears well and in no apparent distress. Patient is resting comfortably on cart. Skin: Warm, dry, no pallor noted. There is no rash noted. Head: Normocephalic, atraumatic Eye: Normal conjunctiva, no drainage, EOMI. PERRL Ears, Nose, Mouth, and Throat: oral mucosa is moist. Cardiovascular: Regular Rate and Rhythm S1-S2, no murmurs rubs or gallops appreciated, pulses are brisk and equal bilaterally Respiratory: Patient is in no distress, no accessory muscle use, lungs are clear to auscultation, no wheezing, rales or rhonchi Back: non-tender, no CVA tenderness bilaterally to percussion. GI: Normal bowel sounds, Mild tenderness in the left lower quadrant, there is very minimal stool in the rectal vault, it was sent for occult blood testing, no masses or external hemorrhoids appreciated. Pt had the urge to use the bathroom and a hat was placed into the toilet - it was bright red blood with small clots, small amount approx 10cc Musculoskeletal: The patient has On to 2+ lower extremity edema with mild erythema, no calf swelling or tenderness noted Neurological: A&O x4, normal speech Psychiatric: Cooperative Constitutional Vital Signs, click to edit/add: Last Vital Signs Temp 98.3 F 11/10/22 20:30 Pulse 86 11/10/22 20:30 Resp 16 11/10/22 20:30 BP 166/76 H 11/10/22 22:27 Pulse Ox 98 11/10/22 20:30 Course Vital Signs Vital signs: Vital Signs Temperature 98.3 F 11/10/22 20:30 Pulse Rate 86 11/10/22 20:30 Respiratory Rate 16 11/10/22 20:30 Blood Pressure 210/80 H 11/10/22 20:30 Pulse Oximetry 98 11/10/22 20:30 Temperature 98.3 F 11/10/22 20:30 Pulse Rate 86 11/10/22 20:30 Respiratory Rate 16 11/10/22 20:30 Blood Pressure 166/76 H 11/10/22 22:27 Pulse Oximetry 98 11/10/22 20:30 MDM - Abdominal Pain MDM Narrative Medical decision making narrative: 85-year-old female with a history of syncope presents for evaluation of a brief episode of syncope after having a bowel movement earlier today. She then went home and rested and had some left-sided abdominal discomfort, took Pepto-Bismol and then had 3 small bloody bowel movements. She presents for evaluation of his mild abdominal pain with some mild nausea and bloody stools. She has had to have blood transfusions in the past due to gastrointestinal bleeds. She did have a colonoscopy approximately 5 years ago. Upon arrival she was noted to be hypertensive But the remainder of her vital signs are normal. EKG done upon arrival is a sinus rhythm at 82 beats with a right bundle branch block. An IV was placed and routine labs are ordered. Her initial white count was elevated at 14.8 with a hemoglobin of 13.3. The remainder of her labs were normal. She has a normal lactic acid. CT scan of the abdomen and pelvis with IV contrast was performed that shows a long segment of colonic wall thickening involving the splenic flexure and extending to the midpoint of the descending colon. She is medicated emergency department with IV fluids Zofran and Pepcid. She does not require any pain medication. She was given 10 mg of labetalol upon arrival due to the elevated blood pressure. We repeated her CBC and she did drop from 13.3 to 12.4 and her white count went up to 16. She has remained hemodynamically stable and is feeling better after the medications and IV fluids. She has not had any additional episodes of bloody stools. The case was discussed with the hospitalist and she is accepted for admission to [facility]. She was given a dose of Zosyn at the hospitalist request. Medical Records Medical records narrative: [facility] [place] [id number] CT Scan Report Signed Patient: HIRAM MADRID MR#: [id number] : 1935 Acct:[id number] Age/Sex: 86 / F ADM Date: 11/10/22 Loc: ER Attending Dr: Ordering Physician: Lesly Ramos Date of Service: 11/10/22 Procedure(s): CT abdomen pelvis w con Accession Number(s): [id number] cc: Addy Clemente M.D.~ The [address] [address] Patient Name: HIRAM MADRID MRN: [id number] date: 1935 Sex: F Assigned Patient Location: ER Current Patient Location: ER Accession/Order Number: [id number] Exam Date: 11/10/2022 20:38 Report Date: 11/10/2022 22:15 At the request of: LESLY MARKER Procedure: CT abdomen pelvis w con EXAMINATION: CT Abdomen/Pelvis REPORT DATE: 11/10/2022 10:01 PM EDT INDICATION: Left lower quadrant abdominal pain, rectal bleeding COMPARISON(S): CT abdomen pelvis 10/21/2018, outside study and images only. TECHNIQUE: Contrast-enhanced axial CT through the abdomen and pelvis was performed. Coronal and sagittal reformats were provided. Individualized dose optimization techniques were used for this CT. Contrast: Intravenous contrast was provided . FINDINGS: SUPPORT DEVICES: None. LOWER CHEST Normal. ABDOMEN/PELVIS Liver: Normal. Gallbladder/biliary: Status post cholecystectomy. No biliary ductal dilation. Pancreas: Normal. Spleen: Punctate calcifications in the spleen likely sequelae of prior granulomatous disease. Adrenal glands: Normal. Kidneys and ureters: There is prominence of the right collecting system and the right ureter without evidence for an obstructing stone. This overall appears similar to prior exam from 2019. On delayed phase imaging the distal ureters opacify with contrast. Contrast is also seen in the urinary bladder. The left ureter is unremarkable. There is a small cyst of the left kidney, superior pole measuring 1 cm. Subcentimeter hypodensity of the right kidney is too small to further characterize. Bladder: Normal. Reproductive organs: Normal for age. There is a hypodensity seen near the urethra which could reflect a small diverticulum measuring approximately 1.1 cm and appearing stable from prior. Vessels: Dense calcific atherosclerosis of the abdominal aorta which is normal caliber. Major venous structures of the abdomen are patent. Stomach/bowel: Normal appearance of the gastroesophageal junction. The small bowel is normal caliber. The appendix is not visualized. There is long segment thickening of the large bowel at the level of the splenic flexure extending distally to approximately midpoint of the descending colon. There are numerous colonic diverticula noted without evidence of acute diverticulitis. Lymph nodes: No lymphadenopathy. Peritoneum: No intraperitoneal free air. No intraperitoneal free fluid. MUSCULOSKELETAL: Abdominal wall: No hernia or soft tissue mass. Bones: Posterior fixation with decompressive laminectomies at L3-L5. No hardware complication. No acute fracture or aggressive osseous abnormality. CT/CT abdomen pelvis w con IMPRESSION: Long segment colonic wall thickening involving the splenic flexure and extending to the midpoint of the descending colon. This could reflect focal area of colitis of which inflammatory, infectious or ischemic causes should be considered. Colonic diverticulosis. There is a hypodensity near the urethra which is favored to represent a periurethral diverticulum. This is stable from the prior exam. Stable prominence of the right ureter an proximal collecting system which opacifies normally with contrast. No obstructing stones are identified. Electronically authenticated by: KARIME OTTO Date: 11/10/2022 22:15 Lab Data Labs: Lab Results 11/10/22 11/10/22 11/10/22 Range/Units 20:40 20:50 22:55 WBC 14.8 H 16.2 H (4.0-11.0) 10^3/uL RBC 4.34 4.25 (4.20-5.40) 10^6/uL Hgb 13.3 12.4 (12.0-16.0) g/dL Hct 39.2 37.6 (36.0-48.0) % MCV 90.3 88.5 (81.0-99.0) fL MCH 30.6 29.2 (26.7-34.0) pg MCHC 33.9 33.0 (29.9-35.2) g/dL RDW 14.1 14.3 (11.0-15.0) % Plt Count 420 383 (150-450) 10^3/uL MPV 8.5 L 8.4 L (9.5-13.5) fL Neut % (Auto) 77.3 H (43.0-75.0) % Lymph % (Auto) 14.5 L (20.5-60.0) % Davison % (Auto) 6.4 (1.7-12.0) % Eos % (Auto) 0.9 (0.9-7.0) % Baso % (Auto) 0.5 (0.2-2.0) % Neut # (Auto) 11.4 H (1.4-6.5) 10^3/uL Lymph # (Auto) 2.1 (1.2-3.8) 10^3/uL Davison # (Auto) 1.0 H (0.3-0.8) 10^3/uL Eos # (Auto) 0.1 (0.0-0.7) 10^3/uL Baso # (Auto) 0.1 (0.0-0.1) 10^3/uL Abs Immat Gran (auto) 0.06 H (0.00-0.03) 10^3/uL Imm/Tot Granulo (auto) 0.4 (0.0-0.5) % Sodium 131 L (136-145) mmol/L Potassium 3.7 (3.5-5.1) mmol/L Chloride 95 L (98-107) mmol/L Carbon Dioxide 25.0 (21.0-32.0) mmol/L Anion Gap 14.7 BUN 12.0 (7.0-18.0) mg/dL Creatinine 0.79 (0.55-1.02) mg/dL Est GFR ( Amer) >60 (>=60) Est GFR (Non-Af Amer) >60 (>=60) BUN/Creatinine Ratio 15.2 Glucose 139 H (74-106) mg/dL Lactate 1.1 (0.4-2.0) mmol/L Calcium 9.2 (8.5-10.1) mg/dL Total Bilirubin 0.3 (0.2-1.0) mg/dL AST 23 (15-37) U/L ALT 25 (14-59) U/L Alkaline Phosphatase 72 (46-116) U/L Total Protein 7.7 (6.4-8.2) g/dL Albumin 3.9 (3.4-5.0) g/dL Globulin 3.8 g/dL Albumin/Globulin Ratio 1.0 Lipase 93.0 (73.0-393.0) U/L Stool Occult Blood Negative Blood Type A Positive Antibody Screen Negative ECG Data Attestation: I personally reviewed and interpreted this ECG as follows: (Sinus rhythm at 82 beats for minute, normal axis, right bundle branch block, no acute ST segment elevation or T-wave inversion) Critical Care Time Critical Care Time Total Critical Care Time: 35 Discharge Plan Discharge Chief Complaint: Abdominal Pain Clinical Impression: Elevated blood pressure reading, GI bleed, Colitis Patient Disposition: Admitted as Observation Time of Disposition Decision: 23:52 Condition: Fair Prescriptions / Home Meds: No Action amlodipine 10 mg tablet 10 mg PO QDAY carvedilol 12.5 mg tablet 12.5 mg PO Q12H hydrochlorothiazide 25 mg tablet 25 mg PO QDAY levothyroxine 88 mcg tablet 88 mcg PO QDAY losartan 100 mg tablet 100 mg PO QDAY ondansetron 4 mg tablet,disintegrating 4 mg PO Q8H PRN (Reason: nausea and vomiting) oxycodone 5 mg tablet 5 mg PO Q6H PRN (Reason: pain) pravastatin 80 mg tablet 80 mg PO QDAY tamsulosin 0.4 mg capsule 0.4 mg PO Q24H potassium chloride 20 mEq tablet extended release 20 meq PO TID hyoscyamine sulfate 0.125 mg tablet 0.125 mg PO QID PRN (Reason: dyspepsia) aspirin 81 mg capsule 81 mg PO DAILY pantoprazole [Protonix] 40 mg tablet,delayed release (DR/EC) 40 mg PO DAILY Qty: 30 11RF Referrals: Addy Clemente MD [Primary Care Provider] - 1 week
[2022-11-10 20:57] LABS: Basophils Absolute Auto 0.1 10^3/uL (0.0-0.1); Basophils Percent Auto 0.5 % (0.2-2.0); Eosinophils Absolute Auto 0.1 10^3/uL (0.0-0.7); Eosinophils Percent Auto 0.9 % (0.9-7.0); Hematocrit 39.2 % (36.0-48.0); Hemoglobin 13.3 g/dL (12.0-16.0); Immature Granulocytes Abs Auto 0.06 10^3/uL (0.00-0.03); Immature Granulocytes Pct Auto 0.4 % (0.0-0.5); Lymphocytes Absolute Auto 2.1 10^3/uL (1.2-3.8); Lymphocytes Percent Auto 14.5 % (20.5-60.0); Mean Corpuscular HGB Conc 33.9 g/dL (29.9-35.2); Mean Corpuscular Hemoglobin 30.6 pg (26.7-34.0); Mean Corpuscular Volume 90.3 fL (81.0-99.0); Mean Platelet Volume 8.5 fL (9.5-13.5); Monocytes Percent Auto 6.4 % (1.7-12.0); Neutrophils Absolute Auto 11.4 10^3/uL (1.4-6.5); Neutrophils Percent Auto 77.3 % (43.0-75.0); Platelet Count 420 10^3/uL (150-450); Red Blood Count 4.34 10^6/uL (4.20-5.40); Red Cell Distribution Width 14.1 % (11.0-15.0); White Blood Count 14.8 10^3/uL (4.0-11.0)
[2022-11-10] MEDS: 0.9 % SODIUM CHLORIDE 1,000 ML 125 ML IV (21:06)
[2022-11-10] MEDS: LABETALOL HCL 20 MG/4 ML SYRINGE 10 MG IVP (21:07)
[2022-11-10] MEDS: FAMOTIDINE/PF 20 MG/2 ML VIAL IV (21:07)
[2022-11-10] MEDS: ONDANSETRON PF 4 MG/2 ML VIAL IV (21:07)
[2022-11-10 21:09] LABS: Alanine Aminotransferase 25 U/L (14-59); Albumin Level 3.9 g/dL (3.4-5.0); Alkaline Phosphatase 72 U/L (46-116); Anion Gap 14.7; Aspartate Amino Transferase 23 U/L (15-37); BUN Creatinine Ratio 15.2; Bilirubin Total 0.3 mg/dL (0.2-1.0); Calcium 9.2 mg/dL (8.5-10.1); Chloride 95 mmol/L (98-107); Estimated GFR (African America >60 (>=60); Estimated GFR (Non-African Ame >60 (>=60); Globulin 3.8 g/dL; Glucose 139 mg/dL (74-106); Potassium 3.7 mmol/L (3.5-5.1); Sodium 131 mmol/L (136-145); Total Protein 7.7 g/dL (6.4-8.2)
[2022-11-10 21:13] LABS: Occult Blood Negative
[2022-11-10 22:27] VITALS: BP 166/76
[2022-11-10 22:56] LABS: Lactate/Lactic Acid 1.1 mmol/L (0.4-2.0)
[2022-11-10 23:00] LABS: Hematocrit 37.6 % (36.0-48.0); Hemoglobin 12.4 g/dL (12.0-16.0); Mean Corpuscular Hemoglobin 29.2 pg (26.7-34.0); Mean Corpuscular Volume 88.5 fL (81.0-99.0); Mean Platelet Volume 8.4 fL (9.5-13.5); Platelet Count 383 10^3/uL (150-450); Red Blood Count 4.25 10^6/uL (4.20-5.40); Red Cell Distribution Width 14.3 % (11.0-15.0); White Blood Count 16.2 10^3/uL (4.0-11.0)
[2022-11-10] MEDS: PIPERACILLIN SODIUM/TAZOBACTAM 3.375 GM in 0.9 % SODIUM CHLORIDE 50 ML IV (23:40)
[2022-11-11 00:30] VITALS: BP 180/72; PULSE 76; RESP 16; TEMP 36.6; O2SAT 94; BMI 27.6
[2022-11-11] MEDS: LACTATED RINGER'S SOLUTION 1,000 ML 50 ML IV (01:52)
[2022-11-11] MEDS: CARVEDILOL 12.5 MG TABLET PO (01:52)
[2022-11-11] MEDS: PANTOPRAZOLE SODIUM 40 MG VIAL IV (01:52)
--- NOTE | 2022-11-11 02:49 | W.PM.TELEPN ---
Progress Note: Subjective Subjective Interval history: Chief complaint: Abdominal pain and GI bleed HPI: 86-year-old female with history of diverticulosis, hypertension, who presents to the hospital with near-syncope, clinical orthostasis and possible few seconds of syncope. Apparently yesterday patient had episode of abdominal discomfort while shopping at [employer] went to the restroom and had bloody bowel movement, felt dizzy lightheaded and may have lost consciousness for few seconds she is not sure she was sit down without any falls or head trauma. She took Pepto-Bismol went home and had 3 more episodes of hematochezia. She is having left-sided abdominal pain, constant, mild to moderate intensity, denies any fevers chills or sweats, denies any chest pain, palpitations, dysuria. She does take aspirin at home. There is chart history of episode of AFib distant past but patient reports her bed and breakfast cook said that she does not have AFib she is not sure why she takes aspirin. Upon arrival to the ER, vitals overall acceptable blood pressure slightly elevated, received fluids, EKG unchanged, CT abdomen pelvis suggesting colitis near the splenic fracture. Lactate negative, fluids, pain medicine nausea medicine given, Zosyn requested along with stool studies. GI was consulted. patient did report history of GI bleed requiring 3 units of blood. Past medical history: Hypertension, acquired hypothyroidism, hyperlipidemia, GERD, diverticulosis past surgical history: Colonoscopy 5 years ago Allergies: No known drug allergies Home medications: Reconcile and in chart social history: Denies smoking alcohol or illicit drug use family history: Noncontributory to today's visit physical exam: General: Lying in bed, in mild acute distress, appears stated age HEENT: Dry mucous membranes, trachea midline, normocephalic, atraumatic CVS: Regular rate and rhythm, slight murmur, no edema lungs: bilateral air entry, no accessory muscle use GI: No visible masses, left-sided tenderness, no rebound or guarding neuro: No focal deficits psych: Appropriate mood, good affect Exam Constitutional Vital Signs, click to edit/add: Last Vital Signs Temp 97.8 F 11/11/22 00:30 Pulse 76 11/11/22 00:30 Resp 16 11/11/22 00:30 BP 180/72 H 11/11/22 00:30 Pulse Ox 94 L 11/11/22 00:30 O2 Del Method Room Air 11/11/22 00:30 Progress Note: Objective Labs Labs: Short CBC 11/10/22 11/10/22 Range/Units 20:40 22:55 WBC 14.8 H 16.2 H (4.0-11.0) 10^3/uL Hgb 13.3 12.4 (12.0-16.0) g/dL Hct 39.2 37.6 (36.0-48.0) % Plt Count 420 383 (150-450) 10^3/uL BMP 11/10/22 20:40 Sodium 131 L Potassium 3.7 Chloride 95 L Carbon Dioxide 25.0 BUN 12.0 Creatinine 0.79 Glucose 139 H Calcium 9.2 Liver Function 11/10/22 Range/Units 20:40 Total Bilirubin 0.3 (0.2-1.0) mg/dL AST 23 (15-37) U/L ALT 25 (14-59) U/L Alkaline Phosphatase 72 (46-116) U/L Albumin 3.9 (3.4-5.0) g/dL Progress Note: A&P Assessment and Plan (1) Elevated blood pressure reading: (2) GI bleed: (3) Colitis: (4) Syncope due to orthostatic hypotension: (5) Orthostasis: (6) Acute hyponatremia: Plan acute GI bleed likely lower acute colitis, infectious versus ischemic versus inflammatory history of GI bleed distant past requiring 3 units of blood per patient hypertension, uncontrolled hyperlipidemia gastroesophageal reflux disease diverticulosis leukocytosis mild hyponatremia, hypovolemia - admit to telemetry bed - Orthostatic vitals, consider 2D echo though suspect syncope related to GI bleed and hypovolemia, orthostasis - Keep NPO, bowel rest, analgesics and antiemetics as needed - IV fluid hydration, IV Zosyn, check stool studies, blood cultures for any fevers - cycle H/ H, transfuse p.r.n. to keep hemoglobin above 7 or for hemodynamic instability. Type and screen - consult GI service in morning - hold home aspirin, avoid anticoagulants - restart home blood pressure medications as patient is hypertensive DVT prophylaxis-SCDs goals of care-DNR, no CPR, do not intubate communications: Discussed with emergency room physician, bedside nurse, patient updated of plan of care, all questions answered to their satisfaction. Disposition -home when medically stable as the provider of this telehealth evaluation, requested by the patient's evaluating physician, I attest that I introduced myself to the patient, provided my credentials and determined that telemedicine via a real-time 2 weight interactive audio and video platform is an appropriate and effective means of providing this service. I reviewed the patient's chart and had a discussion with the member of the patient's treatment team. The patient and I mutually agreed with continuation of this evaluation via telemedicine. The patient consented for the telemedicine evaluation. The nurse was present during the entire time the encounter and was able to move the stethoscope and appropriate directions. A patient was evaluated at 12:30 a.m.. Telemedicine Attestation Telemedicine Attestation I conducted this encounter from [ [place]] via secure live, [id number] video conference with the patient, located at [facility] with nursing staff]. Prior to the interview, the risks and benefits of telemedicine were discussed with the patient and verbal consent was obtained.
[2022-11-11 04:35] VITALS: BP 131/56; PULSE 71; RESP 16; TEMP 36.8; O2SAT 94
[2022-11-11 04:52] LABS: Basophils Absolute Auto 0.1 10^3/uL (0.0-0.1); Basophils Percent Auto 0.5 % (0.2-2.0); Eosinophils Absolute Auto 0.2 10^3/uL (0.0-0.7); Eosinophils Percent Auto 1.3 % (0.9-7.0); Hematocrit 34.3 % (36.0-48.0); Hemoglobin 11.8 g/dL (12.0-16.0); Immature Granulocytes Abs Auto 0.04 10^3/uL (0.00-0.03); Immature Granulocytes Pct Auto 0.3 % (0.0-0.5); Lymphocytes Absolute Auto 2.1 10^3/uL (1.2-3.8); Lymphocytes Percent Auto 18.2 % (20.5-60.0); Mean Corpuscular HGB Conc 34.4 g/dL (29.9-35.2); Mean Corpuscular Hemoglobin 31.1 pg (26.7-34.0); Mean Corpuscular Volume 90.3 fL (81.0-99.0); Mean Platelet Volume 8.9 fL (9.5-13.5); Monocytes Percent Auto 8.1 % (1.7-12.0); Neutrophils Absolute Auto 8.4 10^3/uL (1.4-6.5); Neutrophils Percent Auto 71.6 % (43.0-75.0); Platelet Count 377 10^3/uL (150-450); Red Cell Distribution Width 14.1 % (11.0-15.0); White Blood Count 11.7 10^3/uL (4.0-11.0)
[2022-11-11 04:56] LABS: Anion Gap 11.4; BUN Creatinine Ratio 11.1; Calcium 8.5 mg/dL (8.5-10.1); Carbon Dioxide 27.7 mmol/L (21.0-32.0); Chloride 99 mmol/L (98-107); Estimated GFR (African America >60 (>=60); Estimated GFR (Non-African Ame >60 (>=60); Glucose 116 mg/dL (74-106); Potassium 3.1 mmol/L (3.5-5.1); Sodium 135 mmol/L (136-145)
[2022-11-11 05:10] LABS: Chol HDL Ratio 2.3; Cholesterol 184 mg/dL (<=200); HDL Cholesterol 79 mg/dL (40-60); Magnesium 1.6 mg/dL (1.8-2.4); Triglycerides 84 mg/dL (<=150); VLDL CHOLESTEROL 16.8 mg/dL
[2022-11-11 05:14] LABS: C Reactive Protein <1.0 mg/dL (<=1.0)
[2022-11-11] MEDS: LEVOTHYROXINE SODIUM 88 MCG TABLET PO (05:36)
[2022-11-11 07:53] VITALS: RESP 16
--- NOTE | 2022-11-11 07:57 | P.HP_ITS ---
H&P: HPI History of Present Illness Chief complaint: syncopy and hematuria Narrative: Patient Patient had a GI bleed requiring 2 units of PRBCs. Stabilized after that so the patient was discharged home. As an outpatient we discussed options and decided at that time based on her age to not proceed with EGD or colonoscopy. Yesterday she had another episode of 3 small bowel movements with all with blood in them. Presented to the emergency room. Hemoglobin did go down a little bit. Patient was admitted for continued evaluation. She does feel improved today. Review of Systems ROS Status of ROS 10 or more systems reviewed and unremarkable except as noted in history and below [facility] Medical History Surgical History Family History Mother Family history of CHF (congestive heart failure) Father Lupus Brother Family history of myocardial infarction Family history of stroke Other Arthritis Family history of hypertension Social History Within the past year, how often did you have a drink containing alcohol: never Score interpretation: A score less than 3 is consistent with normal alcohol consumption. 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 Highest level of school completed/degree received: 8th grade Are you now , , , , never or living with a partner: In a typical week, how many times do you talk on the telephone with family, friends, or neighbors: 3 or more times per week How often do you get together with friends or relatives: 3 or more times per week How often do you attend scientology or rastafari services: 4 or more times per year Do you belong to any clubs or organizations such as scientology groups unions, fraternal or athletic groups, or school groups: yes Total score: 3 Score interpretation: A score of greater than or equal to 2 indicates the lowest level of social isolation. Little interest or pleasure in doing things: not at all Feeling down, depressed, or hopeless: not at all Feel stressed/tense/nervous/anxious/difficulty sleeping: not at all Life stressors: recent of family or friend Do you think of yourself as: straight/heterosexual Gender Identity: female Meds Home Medications and Allergies Home Medications Medication Instructions Recorded Confirmed Type amlodipine 10 mg tablet 10 mg PO QDAY 08/10/22 11/10/22 History carvedilol 12.5 mg tablet 12.5 mg PO Q12H 08/10/22 11/10/22 History hydrochlorothiazide 25 mg tablet 25 mg PO QDAY 08/10/22 11/10/22 History levothyroxine 88 mcg tablet 88 mcg PO QDAY 08/10/22 11/10/22 History losartan 100 mg tablet 100 mg PO QDAY 08/10/22 11/10/22 History potassium chloride 20 mEq 20 meq PO TID 08/10/22 11/10/22 History tablet,extended release pravastatin 80 mg tablet 80 mg PO QDAY 08/10/22 11/10/22 History pantoprazole 40 mg tablet,delayed 40 mg PO DAILY #30 tabs 08/17/22 11/10/22 Rx release (Protonix) Allergies Allergy/AdvReac Type Severity Reaction Status Date / Time atorvastatin Allergy Severe HIVES Verified 11/10/22 20:35 prednisone Allergy Severe Rash Verified 11/10/22 20:35 Exam Constitutional Vital Signs, click to edit/add: Last Vital Signs Temp 98.3 F 11/11/22 04:35 Pulse 71 11/11/22 04:35 Resp 16 11/11/22 04:35 BP 131/56 11/11/22 04:35 Pulse Ox 94 L 11/11/22 04:35 O2 Del Method Room Air 11/11/22 04:35 Documenting provider has reviewed patient's vital signs: yes Common normals: no apparent distress Respiratory Common normals: normal respiratory effort Cardio Common normals: regular rate, regular rhythm, no gallops and no murmurs GI Common normals: Normal to inspection, nondistended, normoactive bowel sounds present, soft to palpation, non-tender and no masses Results Labs Labs: Short CBC 11/10/22 11/10/22 11/11/22 Range/Units 20:40 22:55 03:59 WBC 14.8 H 16.2 H 11.7 H (4.0-11.0) 10^3/uL Hgb 13.3 12.4 11.8 L (12.0-16.0) g/dL Hct 39.2 37.6 34.3 L (36.0-48.0) % Plt Count 420 383 377 (150-450) 10^3/uL BMP 11/10/22 11/11/22 20:40 03:59 Sodium 131 L 135 L Potassium 3.7 3.1 L Chloride 95 L 99 Carbon Dioxide 25.0 27.7 BUN 12.0 8.0 Creatinine 0.79 0.72 Glucose 139 H 116 H Calcium 9.2 8.5 Liver Function 11/10/22 Range/Units 20:40 Total Bilirubin 0.3 (0.2-1.0) mg/dL AST 23 (15-37) U/L ALT 25 (14-59) U/L Alkaline Phosphatase 72 (46-116) U/L Albumin 3.9 (3.4-5.0) g/dL Assessment and Plan Assessment and Plan (1) Elevated blood pressure reading: (2) GI bleed: (3) Colitis: (4) Syncope due to orthostatic hypotension: (5) Orthostasis: (6) Acute hyponatremia: Plan Uncontrolled hypertension with acute lower GI bleed serial hemoglobins today. Discussed with patient and daughter, if stable later today and no need for blood transfusion again hold off on EGD and colonoscopy but will likely proceed with this as an outpatient. If hemoglobin does decrease she will need transfused, and discuss options further at that time. If stable later today she can be discharged home in improving condition. Medications see list. Follow-up with me in the office next week. Uncontrolled hypertension-improved, continue with current medications Leukocytosis-check urine sample, consider antibiotics based on urine sample as an outpatient Hyponatremia-improved Hypokalemia-improved
[2022-11-11 08:11] LABS: Basophils Absolute Auto 0.1 10^3/uL (0.0-0.1); Basophils Percent Auto 0.8 % (0.2-2.0); Eosinophils Absolute Auto 0.2 10^3/uL (0.0-0.7); Eosinophils Percent Auto 1.5 % (0.9-7.0); Hematocrit 35.1 % (36.0-48.0); Immature Granulocytes Abs Auto 0.03 10^3/uL (0.00-0.03); Immature Granulocytes Pct Auto 0.3 % (0.0-0.5); Lymphocytes Absolute Auto 1.9 10^3/uL (1.2-3.8); Mean Corpuscular HGB Conc 34.2 g/dL (29.9-35.2); Mean Corpuscular Hemoglobin 31.2 pg (26.7-34.0); Mean Corpuscular Volume 91.2 fL (81.0-99.0); Mean Platelet Volume 8.7 fL (9.5-13.5); Monocytes Absolute Auto 0.8 10^3/uL (0.3-0.8); Monocytes Percent Auto 7.6 % (1.7-12.0); Neutrophils Absolute Auto 7.4 10^3/uL (1.4-6.5); Neutrophils Percent Auto 71.8 % (43.0-75.0); Platelet Count 373 10^3/uL (150-450); Red Blood Count 3.85 10^6/uL (4.20-5.40); Red Cell Distribution Width 14.2 % (11.0-15.0); White Blood Count 10.3 10^3/uL (4.0-11.0)
[2022-11-11 08:25] LABS: INR 0.94; Partial Thromboplastin Time 26.3 sec (22.3-36.2)
--- NOTE | 2022-11-11 08:52 | CM.NOTE ---
Medicare Outpatient Observation Notice discussed with pt, pt verbalizes understanding and signs paper. Original given to pt and copy placed in pt's chart.
[2022-11-11 09:03] VITALS: BP 131/56
[2022-11-11] MEDS: AMLODIPINE BESYLATE 5 MG TABLET 10 MG PO (09:03)
[2022-11-11] MEDS: HYDROCHLOROTHIAZIDE 25 MG TABLET PO (09:03)
[2022-11-11 09:04] VITALS: BP 131/56
[2022-11-11] MEDS: LOSARTAN POTASSIUM 50 MG TABLET 100 MG PO (09:04)
[2022-11-11] MEDS: PIPERACILLIN SODIUM/TAZOBACTAM 3.375 GM in 0.9 % SODIUM CHLORIDE 50 ML IV (09:26)
[2022-11-11 10:59] LABS: Bilirubin Urine NEGATIVE (NEGATIVE); Blood Urine TRACE-I (NEGATIVE); Clarity Urine CLEAR (CLEAR); Color Urine LT. YELLOW (YELLOW); Glucose Urine UA NEGATIVE (NEGATIVE); Ketones Urine NEGATIVE (NEGATIVE); Leukocyte Esterase Urine NEGATIVE (NEGATIVE); Nitrite Urine NEGATIVE (NEGATIVE); Protein Urine NEGATIVE (NEG/TRACE); Urobilinogen Urine 0.2 EU/dL (0.2-1.0); pH Urine 7.5 (5.0-9.0)
[2022-11-11 11:07] LABS: Bacteria Urine NONE SEEN #/HPF (NONE SEEN); Mucus Urine NONE SEEN (NONE SEEN); RBC Urine 0-2 #/HPF (0-2); Squamous Epithelial Cell Urine FEW #/LPF (NONE/RARE); WBC Urine NONE SEEN #/HPF (NONE SEEN)
[2022-11-11 12:13] LABS: Basophils Absolute Auto 0.1 10^3/uL (0.0-0.1); Basophils Percent Auto 0.6 % (0.2-2.0); Eosinophils Absolute Auto 0.1 10^3/uL (0.0-0.7); Eosinophils Percent Auto 1.1 % (0.9-7.0); Hematocrit 36.5 % (36.0-48.0); Immature Granulocytes Abs Auto 0.03 10^3/uL (0.00-0.03); Immature Granulocytes Pct Auto 0.3 % (0.0-0.5); Lymphocytes Percent Auto 17.2 % (20.5-60.0); Mean Corpuscular HGB Conc 32.9 g/dL (29.9-35.2); Mean Corpuscular Hemoglobin 29.2 pg (26.7-34.0); Mean Corpuscular Volume 88.8 fL (81.0-99.0); Mean Platelet Volume 8.4 fL (9.5-13.5); Monocytes Percent Auto 8.7 % (1.7-12.0); Neutrophils Absolute Auto 8.2 10^3/uL (1.4-6.5); Neutrophils Percent Auto 72.1 % (43.0-75.0); Platelet Count 371 10^3/uL (150-450); Red Blood Count 4.11 10^6/uL (4.20-5.40); Red Cell Distribution Width 14.6 % (11.0-15.0); White Blood Count 11.4 10^3/uL (4.0-11.0)
[2022-11-11 13:58] VITALS: O2SAT 95
--- NOTE | 2022-11-11 13:59 | RESP.RT ---
Patient refused PEP therapy
--- NOTE | 2022-11-14 15:49 | CM.DCFOLLOWU ---
No answer 1st attempt
--- NOTE | 2022-11-15 15:28 | CM.DCFOLLOWU ---
Person spoke with: Rebeca How are you feeling? Good How is your pain? No pain Did you understand your discharge instructions? Yes Do you have any questions about your discharge instructions? No Were you given any prescriptions at discharge? Yes Were you able to get your prescriptions filled? Yes Do you understand how to take your medications as ordered? Yes Do you have any questions about your follow up appointment and do you plan to keep your follow up appointment? No Is there anything else that you would like to discuss? No Questions/Comments/Concerns/Other:
== END 2022-11-11 14:27 | disposition home or self-care (01) ==
LOC: ER 23:53 → MS 11-11 00:27
PROVIDERS: Admitting Provider Internal Medicine; Emergency Provider Emergency Medicine; PCP Family Medicine; Visit Provider Family Medicine
DX: K92.2 Gastrointestinal hemorrhage, unspecified (principal); K52.9 Noninfective gastroenteritis and colitis, unspecified; I10 Essential (primary) hypertension; D72.829 Elevated white blood cell count, unspecified; E87.1 Hypo-osmolality and hyponatremia; E87.6 Hypokalemia; I95.1 Orthostatic hypotension; K57.31 Diverticulosis of large intestine without perforation or abscess with bleeding; R82.89 Other abnormal findings on cytological and histological examination of urine; E03.9 Hypothyroidism, unspecified; E78.5 Hyperlipidemia, unspecified; K21.9 Gastro-esophageal reflux disease without esophagitis; E86.1 Hypovolemia; Z79.899 Other long term (current) drug therapy; Z79.890 Hormone replacement therapy
CPT/HCPCS: 36415; 74177; 80048; 80053; 80061; 81001; 83605; 83690; 83735; 85014; 85018; 85025; 85027; 85610; 85730; 86140; 86850; 86900; 86901; 87045; 87086; 93005; 94761; 96361; 96365; 96366; 96375; 99285; G0328; G0378; Q3014; Q9967

== ENCOUNTER 2022-12-10 13:41 | Emergency (ER) | payer MEDICARE, OTHER, SELFPAY ==
[2022-12-10] VITALS (24 sets, daily range): BP systolic 155–201; BP diastolic 54–91; PULSE 57–68; RESP 14–28; TEMP 36.4; O2SAT 85–98; BMI 26.5
--- NOTE | 2022-12-10 14:45 | ECG_ITS ---
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
[2022-12-10 15:06] LABS: Basophils Percent Auto 0.3 % (0.2-2.0); Eosinophils Absolute Auto 0.1 10^3/uL (0.0-0.7); Eosinophils Percent Auto 0.6 % (0.9-7.0); Hematocrit 38.6 % (36.0-48.0); Immature Granulocytes Abs Auto 0.06 10^3/uL (0.00-0.03); Immature Granulocytes Pct Auto 0.5 % (0.0-0.5); Lymphocytes Absolute Auto 2.5 10^3/uL (1.2-3.8); Lymphocytes Percent Auto 20.4 % (20.5-60.0); Mean Corpuscular HGB Conc 33.7 g/dL (29.9-35.2); Mean Corpuscular Hemoglobin 30.2 pg (26.7-34.0); Mean Corpuscular Volume 89.6 fL (81.0-99.0); Mean Platelet Volume 8.3 fL (9.5-13.5); Monocytes Absolute Auto 1.1 10^3/uL (0.3-0.8); Monocytes Percent Auto 8.5 % (1.7-12.0); Neutrophils Absolute Auto 8.7 10^3/uL (1.4-6.5); Neutrophils Percent Auto 69.7 % (43.0-75.0); Platelet Count 371 10^3/uL (150-450); Red Blood Count 4.31 10^6/uL (4.20-5.40); Red Cell Distribution Width 13.6 % (11.0-15.0); White Blood Count 12.5 10^3/uL (4.0-11.0)
[2022-12-10 15:21] LABS: Alanine Aminotransferase 24 U/L (14-59); Albumin Globulin Ratio 0.9; Albumin Level 3.5 g/dL (3.4-5.0); Alkaline Phosphatase 65 U/L (46-116); Anion Gap 10.8; Aspartate Amino Transferase 16 U/L (15-37); BUN Creatinine Ratio 18.2; Bilirubin Total 0.4 mg/dL (0.2-1.0); Calcium 9.4 mg/dL (8.5-10.1); Carbon Dioxide 28.5 mmol/L (21.0-32.0); Chloride 93 mmol/L (98-107); Estimated GFR (African America >60 (>=60); Estimated GFR (Non-African Ame >60 (>=60); Globulin 3.8 g/dL; Glucose 108 mg/dL (74-106); Magnesium 1.7 mg/dL (1.8-2.4); Potassium 3.3 mmol/L (3.5-5.1); Sodium 129 mmol/L (136-145); Total Protein 7.3 g/dL (6.4-8.2)
[2022-12-10 15:23] LABS: Troponin I High Sensitivity 5.6 pg/mL (4.0-51.3)
[2022-12-10] MEDS: POTASSIUM CHLORIDE 10 MEQ ER TABLET 20 MEQ PO (15:56)
[2022-12-10] MEDS: MAGNESIUM SULFATE/D5W 1 GM/100 ML PIGGYBACK IV (15:57)
[2022-12-10] MEDS: 0.9 % SODIUM CHLORIDE 1,000 ML 500 ML IV (15:57)
--- NOTE | 2022-12-10 16:40 | ED_ITS ---
HPI - Altered Mental Status General Chief Complaint: Altered Mental Status Stated Complaint: syncope Time Seen by Provider: 12/10/22 14:40 Source: patient Mode of arrival: ambulance Limitations: no limitations History of Present Illness HPI narrative: Patient presenting to us with a episode of syncope that happened before arrival according to her she was trying to get to the bathroom after she took some laxative but there was someone in the bathroom in the adventist and she have to go back and sit down and while she was sitting down she passed out according to the family they said maybe around 5 minutes, when she woke up she had no complaint she did go to the bathroom upon arrival and she is denying any abdominal pain nausea vomiting and she is back to normal Right this moment the patient have no complaints and she mentioned that this episode happened to her multiple times and most of the time it is associated with a bowel movement The patient does have a history of hypokalemia as well Related Data Home Medications Medication Instructions Recorded Confirmed amlodipine 10 mg tablet 10 mg PO QDAY 08/10/22 11/10/22 carvedilol 12.5 mg tablet 12.5 mg PO Q12H 08/10/22 11/10/22 hydrochlorothiazide 25 mg tablet 25 mg PO QDAY 08/10/22 11/10/22 levothyroxine 88 mcg tablet 88 mcg PO QDAY 08/10/22 11/10/22 losartan 100 mg tablet 100 mg PO QDAY 08/10/22 11/10/22 potassium chloride 20 mEq 20 meq PO TID 08/10/22 11/10/22 tablet,extended release pravastatin 80 mg tablet 80 mg PO QDAY 08/10/22 11/10/22 Previous Rx's Medication Instructions Recorded pantoprazole 40 mg tablet,delayed 40 mg PO DAILY #30 tabs 08/17/22 release (Protonix) Allergies Allergy/AdvReac Type Severity Reaction Status Date / Time atorvastatin Allergy Severe HIVES Verified 11/10/22 20:35 prednisone Allergy Severe Rash Verified 11/10/22 20:35 Review of Systems ROS Status of ROS 10 or more systems reviewed and unremarkable except as noted in history and below [facility] Medical History Surgical History Family History Mother Family history of CHF (congestive heart failure) Father Lupus Brother Family history of myocardial infarction Family history of stroke Other Arthritis Family history of hypertension Social History Within the past year, how often did you have a drink containing alcohol: never Score interpretation: A score less than 3 is consistent with normal alcohol consumption. 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 Highest level of school completed/degree received: 8th grade Are you now , , , , never or living with a partner: In a typical week, how many times do you talk on the telephone with family, friends, or neighbors: 3 or more times per week How often do you get together with friends or relatives: 3 or more times per week How often do you attend adventist or roman catholic services: 4 or more times per year Do you belong to any clubs or organizations such as adventist groups unions, [employer] or athletic groups, or school groups: yes Total score: 3 Score interpretation: A score of greater than or equal to 2 indicates the lowest level of social isolation. Little interest or pleasure in doing things: not at all Feeling down, depressed, or hopeless: not at all Feel stressed/tense/nervous/anxious/difficulty sleeping: not at all Life stressors: recent of family or friend Do you think of yourself as: straight/heterosexual Gender Identity: female Exam Narrative Exam Narrative: Nurses notes and vital signs reviewed and patient is not hypoxic. General: Well-appearing and in no apparent distress. Skin: Warm, dry, no pallor noted. No rash. Head: Normocephalic, atraumatic. Neck: Supple, non-tender. Eye: Pupils are equal, round and EOMI. No scleral icterus. Ears, Nose, Mouth, and Throat: TM are clear, no nasal mucosal hypertrophy. Oral mucosa is moist, no posterior oropharynx erythema, uvula is mid-line Cardiovascular: Regular Rate and Rhythm the patient have a systolic murmur at the aortic area Respiratory: No accessory muscle use or respiratory distress. Lungs are clear to auscultation, no wheezing, rales or rhonchi Chest Wall: no tenderness Back: No midline thoracic or lumbar vertebral tenderness. No CVA tenderness Musculoskeletal: normal ROM, no calf or popliteal tenderness, no lower extremity edema/swelling GI: Abdomen is soft, non-distended. Normal bowel sounds. No masses appreciated. No tenderness to palpation. No rebound, guarding, or rigidity noted. Neurological: A&O x4. No cranial nerve dysfunction observed. No truncal ataxia. Moves all extremities. Sensation intact. Psychiatric: Cooperative and interactive. Normal mood and affect. Constitutional Vital Signs, click to edit/add: Last Vital Signs Temp 97.6 F 12/10/22 13:46 Pulse 58 L 12/10/22 13:46 Resp 18 12/10/22 13:46 BP 160/70 H 12/10/22 13:46 Pulse Ox 98 12/10/22 13:46 O2 Del Method Room Air 12/10/22 13:46 Course Vital Signs Vital signs: Vital Signs Temperature 97.6 F 12/10/22 13:46 Pulse Rate 58 L 12/10/22 13:46 Respiratory Rate 18 12/10/22 13:46 Blood Pressure 160/70 H 12/10/22 13:46 Pulse Oximetry 98 12/10/22 13:46 Oxygen Delivery Method Room Air 12/10/22 13:46 Temperature 97.6 F 12/10/22 13:46 Pulse Rate 58 L 12/10/22 13:46 Respiratory Rate 18 12/10/22 13:46 Blood Pressure 160/70 H 12/10/22 13:46 Pulse Oximetry 98 12/10/22 13:46 Oxygen Delivery Method Room Air 12/10/22 13:46 MDM - Altered Mental Status MDM Narrative Medical decision making narrative: The patient EKG is showing sinus rhythm with a heart rate of [address] elevation or depression The patient blood work-up showed that she have some hyponatremia that is more than her baseline as well as hypokalemia and hypomagnesemia otherwise her work- up did not show any acute significant pathology The patient had no complaint at all while she was in the ER and her symptoms resolved upon waking up from the syncopal episode and she had a bowel movement after that The patient presentation is mostly secondary to vasovagal The patient yet had her sodium and potassium manage in the ER with mild replacement of IV and p.o. potassium as well as magnesium The patient to follow-up with her primary care doctor within a week for further evaluation management and to come back in case of any symptoms Lab Data Labs: Lab Results 12/10/22 Range/Units 15:00 WBC 12.5 H (4.0-11.0) 10^3/uL RBC 4.31 (4.20-5.40) 10^6/uL Hgb 13.0 (12.0-16.0) g/dL Hct 38.6 (36.0-48.0) % MCV 89.6 (81.0-99.0) fL MCH 30.2 (26.7-34.0) pg MCHC 33.7 (29.9-35.2) g/dL RDW 13.6 (11.0-15.0) % Plt Count 371 (150-450) 10^3/uL MPV 8.3 L (9.5-13.5) fL Neut % (Auto) 69.7 (43.0-75.0) % Lymph % (Auto) 20.4 L (20.5-60.0) % [place] % (Auto) 8.5 (1.7-12.0) % Eos % (Auto) 0.6 L (0.9-7.0) % Baso % (Auto) 0.3 (0.2-2.0) % Neut # (Auto) 8.7 H (1.4-6.5) 10^3/uL Lymph # (Auto) 2.5 (1.2-3.8) 10^3/uL [place] # (Auto) 1.1 H (0.3-0.8) 10^3/uL Eos # (Auto) 0.1 (0.0-0.7) 10^3/uL Baso # (Auto) 0.0 (0.0-0.1) 10^3/uL Abs Immat Gran (auto) 0.06 H (0.00-0.03) 10^3/uL Imm/Tot Granulo (auto) 0.5 (0.0-0.5) % Sodium 129 L (136-145) mmol/L Potassium 3.3 L (3.5-5.1) mmol/L Chloride 93 L (98-107) mmol/L Carbon Dioxide 28.5 (21.0-32.0) mmol/L Anion Gap 10.8 BUN 16.0 (7.0-18.0) mg/dL Creatinine 0.88 (0.55-1.02) mg/dL Est GFR ( Amer) >60 (>=60) Est GFR (Non-Af Amer) >60 (>=60) BUN/Creatinine Ratio 18.2 Glucose 108 H (74-106) mg/dL Calcium 9.4 (8.5-10.1) mg/dL Magnesium 1.7 L (1.8-2.4) mg/dL Total Bilirubin 0.4 (0.2-1.0) mg/dL AST 16 (15-37) U/L ALT 24 (14-59) U/L Alkaline Phosphatase 65 (46-116) U/L Troponin I High Sens 5.6 (4.0-51.3) pg/mL Total Protein 7.3 (6.4-8.2) g/dL Albumin 3.5 (3.4-5.0) g/dL Globulin 3.8 g/dL Albumin/Globulin Ratio 0.9 Discharge Plan Discharge Chief Complaint: Altered Mental Status Clinical Impression: Hypomagnesemia, Hyponatremia, Syncope, vasovagal, Hypokalemia Patient Disposition: Home, Self-Care Time of Disposition Decision: 16:46 Condition: Good Prescriptions / Home Meds: No Action amlodipine 10 mg tablet 10 mg PO QDAY carvedilol 12.5 mg tablet 12.5 mg PO Q12H hydrochlorothiazide 25 mg tablet 25 mg PO QDAY levothyroxine 88 mcg tablet 88 mcg PO QDAY losartan 100 mg tablet 100 mg PO QDAY pravastatin 80 mg tablet 80 mg PO QDAY potassium chloride 20 mEq tablet extended release 20 meq PO TID pantoprazole [Protonix] 40 mg tablet,delayed release (DR/EC) 40 mg PO DAILY Qty: 30 11RF Instructions: Hyponatremia (ED), Hypokalemia (ED), Syncope (ED), Hypomagnesemia (ED) Stand Alone Forms: Portal Instructions Referrals: Addy Clemente MD [Primary Care Provider] - 1 week
== END 2022-12-10 17:12 | disposition home or self-care (01) ==
PROVIDERS: Emergency Provider Emergency Medicine; PCP Family Medicine
DX: R55 Syncope and collapse (principal); E83.42 Hypomagnesemia; E87.1 Hypo-osmolality and hyponatremia; E87.6 Hypokalemia; Z79.899 Other long term (current) drug therapy; Z79.890 Hormone replacement therapy
CPT/HCPCS: 36415; 80053; 83735; 84484; 85025; 93005; 96374; 99285

== ENCOUNTER 2022-12-16 10:27 | Outpatient (OUT) | payer MEDICARE, OTHER, SELFPAY ==
--- NOTE | 2022-12-16 10:49 | CA_ITS ---
[facility] Test Date: 2023-01-02 Pat Name: HIRAM MADRID Department: Room: - Gender: Female Postdoctoral Scientist: : 1935 Requested By: MAMI DANIELS Order Number: [id number] Reading MD: IRAIDA STREETER Interpretive Statements Predominant rhythm is sinus with averate rate of 66 bpm Tachycardia - max rate of 225 bpm, associated w/ NSVT - 5 episodes of PSVT w/ longest duration of 6 beats - longest episode of 1m 47sec with rate between 102-107 bpm Bradycardia - min rate of 46 bpm - longest episode of 1h 18min 3sec w/ rates between 46-52 bpm Ventricular ectopy 1,809 total (<1%) 1,783 PVC 12 couplets 7 bigeminy NSVT - 1 episode of 7 beat duration Patient triggered events: none IMpression: Predominant rhythm is sinus with averate rate of 66 bpm Fastest rate of 225 bpm during NSVT, fastest rate of sinus tachycardia was 111 bpm. Slowest rate of 46 bpm 1 episode of NSVT of 7 beat duration No atrial fibrillation No blocks or pauses Electronically Signed On 01-03-2023 7:29:49 EST by [address]ER
[2022-12-16 11:17] LABS: Basophils Absolute Auto 0.1 10^3/uL (0.0-0.1); Basophils Percent Auto 0.6 % (0.2-2.0); Eosinophils Absolute Auto 0.1 10^3/uL (0.0-0.7); Eosinophils Percent Auto 0.9 % (0.9-7.0); Hematocrit 36.6 % (36.0-48.0); Hemoglobin 12.8 g/dL (12.0-16.0); Immature Granulocytes Abs Auto 0.05 10^3/uL (0.00-0.03); Immature Granulocytes Pct Auto 0.5 % (0.0-0.5); Lymphocytes Absolute Auto 2.2 10^3/uL (1.2-3.8); Lymphocytes Percent Auto 21.4 % (20.5-60.0); Mean Corpuscular Hemoglobin 31.9 pg (26.7-34.0); Mean Corpuscular Volume 91.3 fL (81.0-99.0); Mean Platelet Volume 8.6 fL (9.5-13.5); Monocytes Absolute Auto 0.8 10^3/uL (0.3-0.8); Monocytes Percent Auto 8.2 % (1.7-12.0); Neutrophils Absolute Auto 6.9 10^3/uL (1.4-6.5); Neutrophils Percent Auto 68.4 % (43.0-75.0); Platelet Count 359 10^3/uL (150-450); Red Blood Count 4.01 10^6/uL (4.20-5.40); Red Cell Distribution Width 13.5 % (11.0-15.0); White Blood Count 10.1 10^3/uL (4.0-11.0)
[2022-12-16 11:44] LABS: Alanine Aminotransferase 26 U/L (14-59); Albumin Level 3.6 g/dL (3.4-5.0); Alkaline Phosphatase 61 U/L (46-116); Anion Gap 7.8; Aspartate Amino Transferase 16 U/L (15-37); BUN Creatinine Ratio 18.1; Bilirubin Total 0.6 mg/dL (0.2-1.0); Calcium 9.3 mg/dL (8.5-10.1); Chloride 92 mmol/L (98-107); Estimated GFR (African America >60 (>=60); Estimated GFR (Non-African Ame >60 (>=60); Free T3 1.64 pg/mL (2.18-3.98); Globulin 3.7 g/dL; Glucose 112 mg/dL (74-106); Potassium 3.8 mmol/L (3.5-5.1); Sodium 126 mmol/L (136-145); Total Protein 7.3 g/dL (6.4-8.2); Troponin I High Sensitivity 5.3 pg/mL (4.0-51.3)
== END 2022-12-16 10:28 | disposition home or self-care (01) ==
LOC: CARD 10:28
PROVIDERS: PCP Family Medicine; Visit Provider Family Medicine
DX: R55 Syncope and collapse (principal); D64.9 Anemia, unspecified; I50.9 Heart failure, unspecified; I25.10 Atherosclerotic heart disease of native coronary artery without angina pectoris
CPT/HCPCS: 36415; 80053; 83540; 83880; 84436; 84443; 84481; 84484; 85025; 93246

== ENCOUNTER 2022-12-21 10:26 | Outpatient (OUT) | payer MEDICARE, OTHER, SELFPAY ==
--- NOTE | 2022-12-21 10:29 | US_ITS ---
[address] [address] Patient Name: HIRAM MADRID MRN: [id number] date: 1935 Sex: F Assigned Patient Location: Current Patient Location: Accession/Order Number: [id number] Exam Date: 12/21/2022 10:30 Report Date: 12/21/2022 14:04 At the request of: JONY FERNANDO Procedure: US renal BI EXAMINATION: US renal BI HISTORY: Kidney Stone, Hydronephrosis COMPARISON: 11/10/2022 TECHNIQUE: Ultrasound examination was performed of the bladder. FINDINGS: Right Kidney: Normal in size, contour and cortical echotexture. No solid cortical mass. Pelviectasis, the renal pelvis measures up to 1.8 cm Height: 5.2 cm Length: 10.3 cm Width: 5.5 cm Left Kidney: Normal in size, contour and cortical echotexture. No solid cortical mass. Pelviectasis, the renal pelvis measures up to 1.5 cm. Area of anechoic echogenicity in the upper pole measuring 1 cm Height: 4.3 cm Length: 9.4 cm Width: 4.0 cm Urinary bladder measures 9.0 x 6.7 x 9.1 cm with volume of 384 cc US/US renal BI IMPRESSION: Moderate bilateral pelviectasis Electronically authenticated by: DK OLSON Date: 12/21/2022 14:04
== END 2022-12-21 10:27 | disposition home or self-care (01) ==
LOC: US 10:26
PROVIDERS: PCP Family Medicine; Visit Provider Physician Assistant
DX: N20.0 Calculus of kidney (principal); N13.30 Unspecified hydronephrosis
CPT/HCPCS: 76775

== ENCOUNTER 2023-01-13 18:31 | Emergency (ER) | payer MEDICARE, OTHER, SELFPAY ==
[2023-01-13] VITALS (25 sets, daily range): BP systolic 149–162; BP diastolic 48–87; PULSE 61–85; RESP 15–26; TEMP 37.1; O2SAT 94–99; BMI 26.8
--- NOTE | 2023-01-13 19:22 | ECG_ITS ---
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
--- NOTE | 2023-01-13 19:22 | XR_ITS ---
The [address] [address] Patient Name: HIRAM MADRID MRN: [id number] date: 1935 Sex: F Assigned Patient Location: ER Current Patient Location: ER Accession/Order Number: [id number] Exam Date: 01/13/2023 19:28 Report Date: 01/13/2023 19:46 At the request of: ROJELIO REYNOLDS Procedure: XR chest 1V EXAMINATION: XR chest 1V HISTORY: Dizziness, palpitations and hypertension COMPARISON: Portable chest 08/10/2022 TECHNIQUE: Portable chest FINDINGS: The lung parenchyma is free of consolidation or infiltrate. No pneumothorax or pleural effusion. The cardiac, mediastinal and hilar contours are normal. The visualized osseous structures exhibit no gross abnormality. XR/XR chest 1V IMPRESSION: No acute cardiopulmonary abnormality. Electronically authenticated by: DK SARGENT Date: 01/13/2023 19:46
[2023-01-13 19:29] LABS: Basophils Absolute Auto 0.1 10^3/uL (0.0-0.1); Basophils Percent Auto 0.6 % (0.2-2.0); Eosinophils Absolute Auto 0.2 10^3/uL (0.0-0.7); Eosinophils Percent Auto 1.7 % (0.9-7.0); Hematocrit 35.6 % (36.0-48.0); Hemoglobin 12.5 g/dL (12.0-16.0); Immature Granulocytes Abs Auto 0.09 10^3/uL (0.00-0.03); Immature Granulocytes Pct Auto 0.7 % (0.0-0.5); Lymphocytes Absolute Auto 2.1 10^3/uL (1.2-3.8); Lymphocytes Percent Auto 15.8 % (20.5-60.0); Mean Corpuscular HGB Conc 35.1 g/dL (29.9-35.2); Mean Corpuscular Hemoglobin 31.2 pg (26.7-34.0); Mean Corpuscular Volume 88.8 fL (81.0-99.0); Mean Platelet Volume 8.2 fL (9.5-13.5); Monocytes Absolute Auto 0.9 10^3/uL (0.3-0.8); Monocytes Percent Auto 7.1 % (1.7-12.0); Neutrophils Absolute Auto 9.7 10^3/uL (1.4-6.5); Neutrophils Percent Auto 74.1 % (43.0-75.0); Platelet Count 437 10^3/uL (150-450); Red Blood Count 4.01 10^6/uL (4.20-5.40); Red Cell Distribution Width 13.5 % (11.0-15.0)
[2023-01-13 19:38] LABS: Alanine Aminotransferase 25 U/L (14-59); Albumin Globulin Ratio 0.9; Albumin Level 3.4 g/dL (3.4-5.0); Alkaline Phosphatase 66 U/L (46-116); Anion Gap 10.6; Aspartate Amino Transferase 19 U/L (15-37); BUN Creatinine Ratio 17.7; Bilirubin Total 0.4 mg/dL (0.2-1.0); Calcium 9.3 mg/dL (8.5-10.1); Carbon Dioxide 27.8 mmol/L (21.0-32.0); Chloride 92 mmol/L (98-107); Estimated GFR (African America >60 (>=60); Estimated GFR (Non-African Ame >60 (>=60); Globulin 3.9 g/dL; Glucose 122 mg/dL (74-106); Potassium 3.4 mmol/L (3.5-5.1); Sodium 127 mmol/L (136-145); Total Protein 7.3 g/dL (6.4-8.2)
[2023-01-13 19:46] LABS: Magnesium 1.5 mg/dL (1.8-2.4); Troponin I High Sensitivity 5.5 pg/mL (4.0-51.3)
[2023-01-13] MEDS: 0.9 % SODIUM CHLORIDE 1,000 ML 1000 ML IV (20:39)
--- NOTE | 2023-01-13 20:46 | ED_ITS ---
HPI - General Adult General Chief complaint: Dizziness Stated complaint: high bp, diarrhea, hot flashes Time Seen by Provider: 01/13/23 18:57 Source: patient Mode of arrival: Wheelchair Limitations: no limitations History of Present Illness HPI narrative: the patient came in complaining of nausea without vomiting, diarrhea, bouts of dizziness and hot flashes. She told us that she had previously been wearing a Holter monitor and diagnosis ventricular tachycardia. She was placed back to a Holter monitor a couple of days ago because of continued symptoms. He denies any chest pressure or tightness. Denies any shortness of breath. She's been taking her medications as prescribed. I saw her in July. She has previously had difficulty with hyponatremia, low magnesium, low potassium, dehydration. Related Data Home Medications Medication Instructions Recorded Confirmed amlodipine 10 mg tablet 10 mg PO QDAY 08/10/22 11/10/22 carvedilol 12.5 mg tablet 12.5 mg PO Q12H 08/10/22 11/10/22 hydrochlorothiazide 25 mg tablet 25 mg PO QDAY 08/10/22 11/10/22 levothyroxine 88 mcg tablet 88 mcg PO QDAY 08/10/22 11/10/22 losartan 100 mg tablet 100 mg PO QDAY 08/10/22 11/10/22 potassium chloride 20 mEq 20 meq PO TID 08/10/22 11/10/22 tablet,extended release pravastatin 80 mg tablet 80 mg PO QDAY 08/10/22 11/10/22 Previous Rx's Medication Instructions Recorded pantoprazole 40 mg tablet,delayed 40 mg PO DAILY #30 tabs 08/17/22 release (Protonix) Allergies Allergy/AdvReac Type Severity Reaction Status Date / Time atorvastatin Allergy Severe HIVES Verified 11/10/22 20:35 prednisone Allergy Severe Rash Verified 11/10/22 20:35 [facility] Medical History Surgical History Family History Mother Family history of CHF (congestive heart failure) Father Lupus Brother Family history of myocardial infarction Family history of stroke Other Arthritis Family history of hypertension Social History Within the past year, how often did you have a drink containing alcohol: never Score interpretation: A score less than 3 is consistent with normal alcohol consumption. 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 Highest level of school completed/degree received: 8th grade Are you now , , , , never or living with a partner: In a typical week, how many times do you talk on the telephone with family, friends, or neighbors: 3 or more times per week How often do you get together with friends or relatives: 3 or more times per week How often do you attend adventism or nondenominational services: 4 or more times per year Do you belong to any clubs or organizations such as adventism groups unions, [employer] or athletic groups, or school groups: yes Total score: 3 Score interpretation: A score of greater than or equal to 2 indicates the lowest level of social isolation. Little interest or pleasure in doing things: not at all Feeling down, depressed, or hopeless: not at all Feel stressed/tense/nervous/anxious/difficulty sleeping: not at all Life stressors: recent of family or friend Do you think of yourself as: straight/heterosexual Gender Identity: female Exam Narrative Exam Narrative: Nurses notes and vital signs reviewed and patient is not hypoxic. afebrile General: Well-appearing and in no apparent distress. Skin: Warm, dry, no pallor noted. No rash. Head: Normocephalic, atraumatic. Eye: Pupils are equal, round and EOMI. No scleral icterus. Cardiovascular: Regular Rate and Rhythm without murmur, gallop or rub. Respiratory: No accessory muscle use or respiratory distress. Lungs are clear to auscultation, no wheezing, rales or rhonchi Back: No CVA tenderness Musculoskeletal: normal ROM, no calf or popliteal tenderness, no lower extremity edema/swelling GI: Abdomen is soft, non-distended. Normal bowel sounds. No tenderness to palpation. No rebound, guarding, or rigidity noted. Neurological: A&O x4. No cranial nerve dysfunction observed. No truncal ataxia. Moves all extremities. Sensation intact. Psychiatric: Cooperative and interactive. Normal mood and affect. Constitutional Vital Signs, click to edit/add: Last Vital Signs Temp 98.7 F 01/13/23 18:41 Pulse 63 01/13/23 19:50 Resp 19 01/13/23 19:50 BP 162/48 H 01/13/23 18:57 Pulse Ox 97 01/13/23 19:50 O2 Del Method Room Air 01/13/23 18:41 Course Vital Signs Vital signs: Vital Signs Temperature 98.7 F 01/13/23 18:41 Pulse Rate 70 01/13/23 18:41 Respiratory Rate 20 01/13/23 18:41 Blood Pressure 149/59 H 01/13/23 18:41 Pulse Oximetry 97 01/13/23 18:41 Oxygen Delivery Method Room Air 01/13/23 18:41 Temperature 98.7 F 01/13/23 18:41 Pulse Rate 63 01/13/23 19:50 Respiratory Rate 19 01/13/23 19:50 Blood Pressure 162/48 H 01/13/23 18:57 Pulse Oximetry 97 01/13/23 19:50 Oxygen Delivery Method Room Air 01/13/23 18:41 Medical Decision Making MDM Narrative Medical decision making narrative: the patient was once again found to have low sodium and low magnesium. Renal function, LFTs, troponin and BNP are all negative. White blood cell count slightly elevated at 13, normal hemoglobin. Covid negative. The patient received a liter of normal saline IV fluid and 2 g of magnesium IV. She was discharged home with recommendation to take her prescribed meds and see the hoop coiler for follow up as scheduled. Lab Data Lab results reviewed: Yes I reviewed the patient's lab results Labs: Lab Results 01/13/23 01/13/23 Range/Units 19:07 20:54 WBC 13.0 H (4.0-11.0) 10^3/uL RBC 4.01 L (4.20-5.40) 10^6/uL Hgb 12.5 (12.0-16.0) g/dL Hct 35.6 L (36.0-48.0) % MCV 88.8 (81.0-99.0) fL MCH 31.2 (26.7-34.0) pg MCHC 35.1 (29.9-35.2) g/dL RDW 13.5 (11.0-15.0) % Plt Count 437 (150-450) 10^3/uL MPV 8.2 L (9.5-13.5) fL Neut % (Auto) 74.1 (43.0-75.0) % Lymph % (Auto) 15.8 L (20.5-60.0) % [place] % (Auto) 7.1 (1.7-12.0) % Eos % (Auto) 1.7 (0.9-7.0) % Baso % (Auto) 0.6 (0.2-2.0) % Neut # (Auto) 9.7 H (1.4-6.5) 10^3/uL Lymph # (Auto) 2.1 (1.2-3.8) 10^3/uL [place] # (Auto) 0.9 H (0.3-0.8) 10^3/uL Eos # (Auto) 0.2 (0.0-0.7) 10^3/uL Baso # (Auto) 0.1 (0.0-0.1) 10^3/uL Abs Immat Gran (auto) 0.09 H (0.00-0.03) 10^3/uL Imm/Tot Granulo (auto) 0.7 H (0.0-0.5) % Sodium 127 L (136-145) mmol/L Potassium 3.4 L (3.5-5.1) mmol/L Chloride 92 L (98-107) mmol/L Carbon Dioxide 27.8 (21.0-32.0) mmol/L Anion Gap 10.6 BUN 14.0 (7.0-18.0) mg/dL Creatinine 0.79 (0.55-1.02) mg/dL Est GFR ( Amer) >60 (>=60) Est GFR (Non-Af Amer) >60 (>=60) BUN/Creatinine Ratio 17.7 Glucose 122 H (74-106) mg/dL Calcium 9.3 (8.5-10.1) mg/dL Magnesium 1.5 L (1.8-2.4) mg/dL Total Bilirubin 0.4 (0.2-1.0) mg/dL AST 19 (15-37) U/L ALT 25 (14-59) U/L Alkaline Phosphatase 66 (46-116) U/L Troponin I High Sens 5.5 (4.0-51.3) pg/mL NT-Pro-B Natriuret Pep 246.0 (<=1800.0) pg/mL Total Protein 7.3 (6.4-8.2) g/dL Albumin 3.4 (3.4-5.0) g/dL Globulin 3.9 g/dL Albumin/Globulin Ratio 0.9 SARS-CoV-2 (PCR) Negative (NEGATIVE) Imaging Data Chest x-ray: Attestation: I have reviewed the pertinent imaging results. Radiologist's impression: Patient Name: HIRAM MADRID MRN: [id number] date: 1935 Sex: F Assigned Patient Location: ER Current Patient Location: ER Accession/Order Number: [id number] Exam Date: 01/13/2023 19:28 Report Date: 01/13/2023 19:46 At the request of: ROJELIO REYNOLDS Procedure: XR chest 1V EXAMINATION: XR chest 1V HISTORY: Dizziness, palpitations and hypertension COMPARISON: Portable chest 08/10/2022 TECHNIQUE: Portable chest FINDINGS: The lung parenchyma is free of consolidation or infiltrate. No pneumothorax or pleural effusion. The cardiac, mediastinal and hilar contours are normal. The visualized osseous structures exhibit no gross abnormality. IMPRESSION: No acute cardiopulmonary abnormality. Electronically authenticated by: DK SARGENT Date: 01/13/2023 19:46 ECG Data Attestation: I personally reviewed and interpreted this ECG as follows: Interpretation: EKG interpretation: Emergency Department physician interpretation. Normal sinus rhythm at 65bpm. right bundle-branch block. No ST segment elevation or depression. EKG is similar to previously obtained EKG on 12/26/2021 Discharge Plan Discharge Chief Complaint: Dizziness Clinical Impression: Hyponatremia, Hypomagnesemia Patient Disposition: Home, Self-Care Time of Disposition Decision: 21:23 Prescriptions / Home Meds: No Action amlodipine 10 mg tablet 10 mg PO QDAY carvedilol 12.5 mg tablet 12.5 mg PO Q12H hydrochlorothiazide 25 mg tablet 25 mg PO QDAY levothyroxine 88 mcg tablet 88 mcg PO QDAY losartan 100 mg tablet 100 mg PO QDAY pravastatin 80 mg tablet 80 mg PO QDAY potassium chloride 20 mEq tablet extended release 20 meq PO TID pantoprazole [Protonix] 40 mg tablet,delayed release (DR/EC) 40 mg PO DAILY Qty: 30 11RF Instructions: Hyponatremia (ED), Hypomagnesemia (ED) Stand Alone Forms: Portal Instructions Referrals: Addy Clemente MD [Primary Care Provider] - 1 week
[2023-01-13] MEDS: MAGNESIUM SULFATE IN WATER 2 GM/50 ML PREMIX IV (21:01)
[2023-01-13] MEDS: ONDANSETRON PF 4 MG/2 ML VIAL IV (21:01)
[2023-01-13 21:09] LABS: SARS-CoV-2 Ag NEGATIVE (NEGATIVE)
[2023-01-14 10:28] LABS: SARS-CoV-2 NAA NOT DETECTED (NOT DETECTE)
== END 2023-01-13 22:36 | disposition home or self-care (01) ==
PROVIDERS: Emergency Provider Emergency Medicine; PCP Family Medicine
DX: E87.1 Hypo-osmolality and hyponatremia (principal); E83.42 Hypomagnesemia; Z79.899 Other long term (current) drug therapy; Z79.890 Hormone replacement therapy; Z20.822 Contact with and (suspected) exposure to COVID-19
CPT/HCPCS: 36415; 71045; 80053; 83735; 83880; 84484; 85025; 87507; 87635; 87811; 93005; 96365; 96375; 99285

== ENCOUNTER 2023-01-20 10:43 | Outpatient (OUT) | payer MEDICARE, OTHER, SELFPAY ==
[2023-01-20 11:05] LABS: Basophils Absolute Auto 0.1 10^3/uL (0.0-0.1); Basophils Percent Auto 0.6 % (0.2-2.0); Eosinophils Absolute Auto 0.2 10^3/uL (0.0-0.7); Eosinophils Percent Auto 1.5 % (0.9-7.0); Hemoglobin 12.3 g/dL (12.0-16.0); Immature Granulocytes Pct Auto 0.9 % (0.0-0.5); Lymphocytes Absolute Auto 2.4 10^3/uL (1.2-3.8); Lymphocytes Percent Auto 21.4 % (20.5-60.0); Mean Corpuscular HGB Conc 33.2 g/dL (29.9-35.2); Mean Corpuscular Hemoglobin 29.8 pg (26.7-34.0); Mean Corpuscular Volume 89.6 fL (81.0-99.0); Mean Platelet Volume 8.1 fL (9.5-13.5); Monocytes Percent Auto 9.2 % (1.7-12.0); Neutrophils Absolute Auto 7.3 10^3/uL (1.4-6.5); Neutrophils Percent Auto 66.4 % (43.0-75.0); Platelet Count 431 10^3/uL (150-450); Red Blood Count 4.13 10^6/uL (4.20-5.40); Red Cell Distribution Width 13.5 % (11.0-15.0)
[2023-01-20 11:54] LABS: Alanine Aminotransferase 26 U/L (14-59); Albumin Globulin Ratio 0.9; Albumin Level 3.5 g/dL (3.4-5.0); Alkaline Phosphatase 66 U/L (46-116); Anion Gap 12.2; Aspartate Amino Transferase 23 U/L (15-37); Bilirubin Total 0.5 mg/dL (0.2-1.0); Calcium 9.3 mg/dL (8.5-10.1); Carbon Dioxide 28.9 mmol/L (21.0-32.0); Chloride 90 mmol/L (98-107); Estimated GFR (African America >60 (>=60); Estimated GFR (Non-African Ame >60 (>=60); Globulin 3.9 g/dL; Glucose 95 mg/dL (74-106); Magnesium 1.6 mg/dL (1.8-2.4); Potassium 4.1 mmol/L (3.5-5.1); Sodium 127 mmol/L (136-145); Total Protein 7.4 g/dL (6.4-8.2)
== END 2023-01-20 10:44 | disposition home or self-care (01) ==
PROVIDERS: PCP Family Medicine; Visit Provider Family Medicine
DX: K52.9 Noninfective gastroenteritis and colitis, unspecified (principal)
CPT/HCPCS: 36415; 80053; 83735; 85025

== ENCOUNTER 2023-02-08 11:50 | Outpatient (REF) | payer MEDICARE, OTHER, SELFPAY ==
--- OUTSIDE RECORDS SUMMARY | 2023-02-08 12:04 | XMS_ITS | CCD ---
Author Name Unknown Address [address] [place] [address] Organization [facility] Care Team Providers Care Retail Services Professional Name Role Phone PHYSICIAN, DEFAULT Admitting Unavailable PHYSICIAN, DEFAULT Attending Unavailable CALISTA ACEVES Primary Care Unavailable ELLIS, LENNY H. Admitting Unavailable ELLIS, LENNY H. Attending Unavailable ELLIS, LENNY H. Admitting Unavailable ELLIS, LENNY H. Attending Unavailable CALISTA ACEVES Primary Care Unavailable DULCE STEVENS Consulting Unavailable MARY VEGA Admitting Unavaila MARY Juáerz Attending Unavaila CALISTA Rand Primary Care Unavailable NOLBERTO GIBBONS Consulting Unavailable DULCE STEVENS Consulting Unavailable ELLIS, LENNY H. Consulting Unavailable TY JON Consulting Unavailable CARLOS PAGE Consulting Unavailable ELLIS, LENNY H. Attending Unavailable ELLIS, LENNY H. Referring Unavailable CALISTA ACEVES Primary Care Unavailable Calista Aceves Primary Care Provider CALISTA ACEVES Primary Care Physician [phone] DR VALERIE DARDEN Consulting Unavailable JEREMIAH .DR BOLAÑOS Primary Care Unavailable ADELSO, DR PADILLA Attending Unavailable ADELSO, DR PADILLA Admitting Unavailable JEREMIAH .DR BOLAÑOS Primary Care Unavailable LAKSHMIARTEMIO ., TYLER Attending Kerry vailable LAKSHMIARTEMIO ., TYLER Admitting Kerry vailable HOY ., DR BOLAÑOS Primary Care Unavailable HOY ., DR BOLAÑOS Attending Unavailable HOY ., DR BOLAÑOS Admitting Unavailable HOY ., DR BOLAÑOS Attending Unavailable HOY ., DR BOLAÑOS Admitting Unavailable HOY ., DR BOLAÑOS Consulting Unavailable DR CALISTA ACEVES Primary Care Unavailable TRAY FORMAN Consulting Unavailable TING MIXON Consulting Unavailable JEREMIAH ., DR BOLAÑOS Consulting Unavailable HOY ., DR BOLAÑOS Primary Care Unavailable HOY ., DR BOLAÑOS Attending Unavailable HOY ., DR BOLAÑOS Admitting Unavailable ACEVES, DR CALISTA Pereira Consulting Unavailable ACEVES, DR CALISTA Pereira Primary Care Unavailable ACEVES, DR CALISTA Pereira Attending Unavailable ACEVES, DR CALISTA Pereira Admitting Unavailable ELTAHAWY, DR PADILLA Consulting Unavailable ACEVES, DR CALISTA Pereira Primary Care Unavailable ELTAHAWY, DR PADILLA Attending Unavailable ELTAHAWY, DR PADILLA Admitting Unavailable ACEVES, DR CALISTA Pereira Consulting Unavailable ACEVES, DR CALISTA Pereira Primary Care Unavailable ACEVES, DR CALISTA Pereira Attending Unavailable ACEVES, DR CALISTA Pereira Admitting Unavailable ZIEBER, DR JESUS Mckeon Consulting Unavailable ACEVES, DR CALISTA Pereira Primary Care Unavailable ACEVES, DR CALISTA Pereira Attending Unavailable ACEVES, DR CALISTA Pereira Admitting Unavailable ACEVES, DR CALISTA Pereira Consulting Unavailable HOY ., DR BOLAÑOS Consulting Unavailable HOY ., DR BOLAÑOS Primary Care Unavailable HOY ., DR BOLAÑOS Attending Unavailable HOY ., DR BOLAÑOS Admitting Unavailable MD Addy Daniels Primary Care Provider [phone] DO Camacho Ladd Emergency Provider [facility] Camacho Rocha Admitting Unavailable Addy Daniels Primary Care Unavailable Camacho Ladd Attending Unavailable Addy Daniels Primary Care Unavailable Raymond Harrison Attending Unavailable Raymond Harrison Admitting Unavailable Addy Daniels Primary Care Physician MIKAYLA WEISS Attending Unavailable Raymond HARRISON Attending Unavailable HARRISONRaymond Attending Unavailable MIKAYLA WEISS Attending Unavailable Raymond HARRISON Attending Unavailable ELTAHAWY, EHAB Attending Unavailable LESLY ALANIZ Attending Unavailable LESLY ALANIZ Attending Unavailable Allergies Allergy Classification Reported Allergen(s) Allergy Type Date of Onset Reaction(s) Facility (5 sources) predniSONE; Translations: [prednisone] Drug Allergy 8 Hives, Eruption of skin (disorder) [place] (2 sources) predniSONE Drug Allergy 7 [facility] Repository (1 source) predniSONE Drug Allergy 3 [facility] Repository (3 sources) atorvastatin; Translations: [atorvastatin] Drug Allergy 3 Unknown (qualifier value) [facility] (2 sources) Ibuprofen; Translations: [ibuprofen] Drug Allergy Unknown (qualifier value) [facility] Natalya Medications Current Medications Medication Drug Class(es) Dates Sig (Normalized) Sig (Original) acetaminophen 325 mg oral tablet (1 source) Start: 11-04-2018 650 mg, Oral, EVERY 4 HOURS PRN, Pain Mild (1-3), Pain Mild (1-3) or Fever greater than 100.5 F (38 C), Starting 11/04/18 at 1707 Maximum dose of acetaminophen is 4000 mg from all sources in 24 hours. acetaminophen 325 mg / oxyCODONE hydrochloride 5 mg oral tablet (6 sources) Opioid Agonist Start: 11-15-2018 End: 11-29-2018 take 1 tablet by mouth every four hours as needed for pain oxyCODONE-acetamino phen (PERCOCET) 5-325 MG per tablet Indications: Spinal stenosis of lumbosacral region Take 1 tablet by mouth every 4 hours as needed for Pain for up to 10 days. 40 tablet 0 11/19/2018 11/29/2018 Active Start: 11-05-2018 End: 11-19-2018 oxyCODONE-acetaminophen (PER COCET) 7.5-325 MG per tablet Indications: Lumbar radiculopathy Take 1 tablet by mouth 2 times daily for 14 days. Intended supply: 30 days 40 tablet 0 11/05/2018 11/19/2018 Active Start: 11-04-2018 End: 11-19-2018 take 1 tablet by mouth every four hours as needed for pain 1 tablet, Oral, EVERY 4 HOURS PRN, Pain Mild (1-3), Pain Moderate (4-6), Pain Severe (7-10), Starting 11/04/18 at 1828 Maximum dose of acetaminophen is 4000 mg from all sources in 24 hours. albuterol 0.21 mg/ml inhalant solution (2 sources) beta2-Adrenergic Agonist Start: 11-15-2018 albut michelle (ACCUNEB) nebulizer solution 0.63 mg Start: 11-15-2018 End: 11-15-2018 albuterol (PROVENTIL) (2.5 M G/3ML) 0.083% nebulizer solution aspirin 81 mg oral capsule (6 sources) Platelet Aggregation Inhibitor, Nonsteroidal Anti-inflammatory Drug Start: 08-10-2022 take 1 mg by mouth every four hours aspirin 81 mg oral capsule mg cap(s), Oral, q4hr Start Date: 08/10/22 Status: Ordered Start: 11-05-2018 aspirin chewab le tablet 81 mg Start: 08-06-2018 take 81 mg by mouth once daily 81 mg, Oral, DAILY, First dose on Mon11/16/18 at 0900 take 1 tablet by mouth once doimnic y aspirin 81 MG tablet Take 81 mg by mouth daily 0 Active bacitracin 0.5 unt/mg / neomycin 0.0035 mg/mg / polymyxin b 10 unt/mg topical ointment (2 sources) Aminoglycoside Antibacterial, Polymyxin-class Antibacterial Start: 11-16-2018 End: 11-18-2018 fkexaqni-vufxnykdrc-pgqtwuim n (NEOSPORIN) ointment carvedilol (1 source) alpha-Adrenergic Yadira, beta-Adrenergic Yadira Start: 08-10-2022 carvedilol Oral Start Date: 08/10/22 Status: Ordered cephalexin 500 mg oral capsule (4 sources) Cephalosporin Antibacterial Start: 08-05-2022 take 500 mg by mouth twice daily Cephalexin Active 500 MG PO Twice daily 14 August 05, 2022 12:00am Start: 11-19-2018 End: 11-29-2018 take 1 capsule by mouth every eight hours cephALEXin (KEFLEX) 500 MG capsule Take 1 capsule by mouth every 8 hours for 10 days 30 capsule 0 11/19/2018 11/29/2018 Active Start: 11-18-2018 End: 11-25-2018 cephALEXin (KEFLEX) capsule 500 mg Start: 11-15-2018 End: 11-15-2018 take 1 dose by mouth three times daily 500 mg, Oral, EVERY 8 HOURS SCHEDULED (3 times per day), First dose on Aura 11/15/18 at 2200, For 16 doses cinnamon oil liquid 1 drop (1 source) Start: 11-15-2018 cinnamon oil liquid 1 drop docusate sodium 100 mg oral capsule (1 source) Start: 11-15-2018 take 100 mg by mouth twice daily 100 mg, Oral, 2 TIMES DAILY, First dose on Aura 11/15/18 at 2100 Do not crush or break Post-op 0.3 ml enoxaparin sodium 100 mg/ml prefilled syringe (2 sources) Low Molecular Weight Heparin Start: 11-17-2018 enoxaparin (LOVENOX) injection 30 mg Start: 11-05-2018 inject 40 mg by subc utaneous injection once daily 40 mg, Subcutaneous, DAILY, First dose on 11/05/18 at 0900 famotidine 20 mg oral tablet (2 sources) Histamine-2 Receptor Antagonist Start: 11-15-2018 take 1 tablet by mouth twice daily famotidine (PEPCID) 20 MG tablet Take 1 tablet by mouth 2 times daily 60 tablet 3 11/19/2018 Active gabapentin 100 mg oral capsule (4 sources) Anti-epileptic Agent Start: 11-02-2018 End: 12-02-2018 take 100 mg by mouth three times daily 100 mg, Oral, 3 TIMES DAILY, First dose on Aura 11/15/18 at 2100 12 hr guaiFENesin 600 mg extended release oral tablet (1 source) Start: 11-15-2018 guaiFENesin (MUCINEX) extended release tablet 600 mg hydroCHLOROthiazide (1 source) Thiazide Diuretic Start: 08-10-2022 hydrochlorothiazide Oral, Daily Start Date: 08/10/22 Status: Ordered lactulose 667 mg/ml oral solution (1 source) Osmotic Laxative Start: 11-17-2018 lactulose (CHRONULAC) 10 GM/15ML solution 20 g 1 ml morphine sulfate 4 mg/ml cartridge (2 sources) Opioid Agonist Start: 11-04-2018 morphine injection 4 mg Start: 11-04-2018 End: 11-04-2018 morphine (PF) injection 4 mg naproxen 500 mg oral tablet (1 source) Nonsteroidal Anti-inflammatory Drug Start: 08-05-2022 take 1 tablet by mouth twice daily Naproxen (Naprosyn) 500 mg tablet Active 500 MG PO Twice daily 10 August 05, 2022 12:00am ondansetron 4 mg oral tablet (3 sources) Serotonin-3 Receptor Antagonist Start: 08-05-2022 take 4 mg by mouth once daily Ondansetron Hcl Active 4 MG PO Daily 5 August 05, 2022 12:00am Start: 11-05-2018 4 mg, Intraven ous, EVERY 6 HOURS PRN, Nausea, Starting Mon11/05/18 at 1830 Start: 11-04-2018 End: 11-04-2018 ondansetron (ZOFRAN) injecti on 4 mg oxyCODONE hydrochloride 5 mg oral tablet (1 source) Opioid Agonist Start: 08-05-2022 take 5 mg by mouth once daily Oxycodone Active 5 MG PO Daily 5 5 August 05, 2022 polyethylene glycol 3350 67816 mg powder for oral solution (1 source) Osmotic Laxative Start: 11-15-2018 polyethylene glycol (GLYCOLAX) packet 17 g Potassium Chloride (7 sources) Start: 08-10-2022 Potassium Chlo ride (Oxg-Rqjf-Ffz 10) mEq, Oral, BID Start Date: 08/10/22 Status: Ordered Start: 11-05-2018 End: 11-05-2018 potassium chloride (KLOR-CON M) extended release tablet 40 mEq Start: 11-04-2018 20 mEq, Oral, 2 TIMES DAILY, First dose on Aura 11/15/18 at 2100 Dilute with at least 4 ounces of cold water. May further dilute if GI adverse effects occur. Start: 08-06-2018 take 1 tablet by [facility] once daily Potassium Chloride (Klor-Con M20) 20 mEq Tablet,Er Particles/Crystals Active 1 TAB PO Daily August 06, 2018 12:00am sennosides, longterm 8.6 mg oral tablet (1 source) Start: 11-15-2018 senna (SENOKOT ) tablet 8.6 mg 3 ml sodium chloride 9 mg/ml injection (4 sources) Start: 11-05-2018 10 mL, Intrave nous, EVERY 12 HOURS SCHEDULED (2 times per day), First dose on 11/05/18 at 2100 Start: 11-04-2018 10 mL, Intrave nous, EVERY 12 HOURS SCHEDULED (2 times per day), First dose on 11/04/18 at 2100 Start: 11-04-2018 take 10 mL intraveno us route once as needed 10 mL, Intravenous, PRN, Line Care, After every IV line use, Starting Mon11/05/18 at 1830 tamsulosin hydrochloride 0.4 mg oral capsule (1 source) alpha-Adrenergic Yadira Start: 08-05-2022 take 1 capsule by mouth once daily Tamsulosin (Flomax) 0.4 mg capsule Active 0.4 MG PO Daily 30 30 August 05, 2022 12:00am Completed/Discontinued Medications Medication Drug Class(es) Dates Sig (Normalized) Sig (Original) amLODIPine 10 mg oral tablet (5 sources) Dihydropyridine Calcium Channel Yadira Start: 08-09-2022 take 1 tablet by mouth once daily amLODIPine 10 mg Tab 30 EA, TAKE 1 TABLET BY MOUTH ONCE DAILY, Refills(s) 0 Start Date: 08/09/22 Status: Ordered Start: 08-06-2018 amLODIPine (NO RVASC) tablet 10 mg ciprofloxacin 250 mg oral tablet (1 source) Quinolone Antimicrobial Start: 08-30-2022 take 1 tablet by mouth once daily Cipro 250 mg Tab 250 mg = 1 tab(s), Oral, Daily, Take 1 tablet the day before the procedure and 1 tablet after the procedure, # 2 tab(s), Refills(s) 0, Pharmacy: [facility], 155, cm, 08/10/22 9:03:00 EDT, Height/Length Dosing, 65, kg, 08/10/22 9:03:00 EDT, Weight Dosing Start Date: 08/30/22 Status: Ordered gadoteridol (PROHANCE) injection 15 mL (1 source) Start: 11-05-2018 End: 11-05-2018 gadoteridol (PROHANCE) injection 15 mL 1 ml ketorolac tromethamine 15 mg/ml cartridge (1 source) Nonsteroidal Anti-inflammatory Drug, Cyclooxygenase Inhibitor Start: 11-04-2018 End: 11-04-2018 ketorolac (TORADOL) injection 15 mg levothyroxine sodium 0.088 mg oral tablet (7 sources) l-Thyroxine Start: 08-09-2022 take 1 tablet by mouth once daily in the morning levothyroxine 88 mcg (0.088 mg) Tab 90 EA, TAKE 1 TABLET BY MOUTH ONCE DAILY IN THE MORNING ON AN EMPTY STOMACH, Refills(s) 0 Start Date: 08/09/22 Status: Ordered Start: 08-06-2018 take 1 tablet by neil th once daily levothyroxine (SYNTHROID) 88 MCG tablet Take 1 tablet by mouth Daily 30 tablet 3 11/20/2018 Active End: 11-19-2018 levothyroxine (SYNTHROID) 10 0 MCG tablet Take 88 mcg by mouth Daily 0 11/19/2018 Discontinued (Stop Taking at Discharge) 10 ml lidocaine hydrochloride 20 mg/ml injection (2 sources) Antiarrhythmic, Amide Local Anesthetic Start: 11-20-2018 End: 11-20-2018 lidocaine 2 % injection 5 mL Start: 11-18-2018 End: 11-18-2018 lidocaine 2 % injection 5 mL 1 ml LORazepam 2 mg/ml injection (1 source) Benzodiazepine Start: 11-05-2018 End: 11-05-2018 LORazepam (ATIVAN) injection 1 mg losartan potassium 100 mg oral tablet (6 sources) Angiotensin 2 Receptor Yadira Start: 08-09-2022 take 1 tablet by mouth once daily losartan 100 mg Tab 90 EA, TAKE 1 TABLET BY MOUTH ONCE DAILY, Refills(s) 0 Start Date: 08/09/22 Status: Ordered Start: 11-16-2018 take 100 mg by mouth once dominic y 100 mg, Oral, DAILY, First dose on Mon11/16/18 at 0900 Start: 11-05-2018 losartan (COZA AR) tablet 100 mg Start: 08-06-2018 take 1 tablet by mouth once da senthil Losartan Active 1 TAB PO Daily August 06, 2018 12:00am metoprolol tartrate 25 mg oral tablet (4 sources) beta-Adrenergic Yadira Start: 11-15-2018 End: 11-19-2018 take 1 tablet by mouth twice daily metoprolol tartrate (LOPRESSOR) 25 MG tablet Take 1 tablet by mouth 2 times daily HOLD for SBP 60 tablet 3 11/19/2018 11/19/2018 Discontinued piperacillin-tazob actam (ZOSYN) 3.375 g in dextrose 5 % 50 mL IVPB (mini-bag) (1 source) Start: 11-15-2018 End: 11-17-2018 piperacillin-tazoba ctam (ZOSYN) 3.375 g in dextrose 5 % 50 mL IVPB (mini-bag) potassium bicarbonate 25 meq effervescent oral tablet (1 source) Start: 11-04-2018 End: 11-04-2018 potassium bicarbonate (K-LYTE) disintegrating tablet 50 mEq pravastatin sodium 80 mg oral tablet (6 sources) HMG-CoA Reductase Inhibitor Start: 08-09-2022 take 1 tablet by mouth once daily pravastatin 80 mg Tab 30 EA, TAKE 1 TABLET BY MOUTH ONCE DAILY, Refills(s) 0 Start Date: 08/09/22 Status: Ordered Start: 08-06-2018 take 80 mg by mouth once daily 80 mg, Oral, DAILY, First dose on Aura 11/15/18 at 2100 vancomycin 1000 mg IVPB in 2 50 mL D5W addavial (3 sources) Start: 11-20-2018 End: 11-20-2018 vancomycin 1000 mg IVPB in 2 50 mL D5W addavial Start: 11-16-2018 End: 11-17-2018 vancomycin 1000 mg IVPB in 2 50 mL D5W addavial Start: 11-15-2018 End: 11-15-2018 vancomycin 1000 mg IVPB in 2 50 mL D5W addavial Problems Active Problems Problem Classification Problem Date Documented Date Episodic/Chronic Abdominal pain (1 source) Abdominal pain; Translations: [Unspecified abdominal pain] 08-05-2022 Episodic Calculus of urinary tract (4 sources) Kidney stone; Translations: [Calculus of kidney] Onset: 08-05-2022 08-05-2022 Episodic Cardiac dysrhythmias (1 source) Atrial fibrillation 08-10-2022 Chronic Diseases of white blood cells (1 source) Elevated white blood cell count, unspecified; Translations: [ELEVATED WHITE BLOOD CELL COUNT UNS] Onset: 12-31-2021 Chronic Disorders of lipid metabolism (8 sources) Pure hypercholesterolemia, unspecified; Translations: [Hyperlipidemia, unspecified] Onset: 08-06-2021 Chronic Essential hypertension (8 sources) Essential (primary) hypertension; Translations: [Hypertensive disorder] Onset: 07-28-2021 Chronic Fluid and electrolyte disorders (14 sources) Hypo-osmolality and hyponatremia; Translations: [Dehydration] Onset: 11-09-2021 Episodic 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 of ureter; 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, unspecified] Onset: 12-22-2022 Chronic Heart valve disorders (12 sources) Rheumatic disorders of both mitral and aortic valves; Translations: [Nonrheumatic aortic (valve) stenosis] Onset: 04-04-2022 Chronic Hypertension with complications and secondary hypertension (2 sources) Hypertensive heart disease without heart failure; Translations: [Hypertensive heart disease without heart failure] Onset: 04-04-2022 Chronic Nausea and vomiting (2 sources) Nausea; Translations: [Nausea and vomiting] Onset: 12-31-2021 08-05-2022 Episodic Occlusion or stenosis of precerebral arteries (2 sources) Occlusion and stenosis of bilateral carotid arteries; Translations: [Occlusion and stenosis of bilateral carotid arteries] Onset: 04-04-2022 Chronic Osteoarthritis (1 source) Arthritis 08-10-2022 Chronic Other diseases of kidney and ureters (2 sources) Hydronephrosis; Translations: [Unspecified hydronephrosis] Onset: 12-19-2022 Episodic Other diseases of kidney and ureters (1 source) 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 Other ear and sense organ disorders (1 source) Hearing loss 08-10-2022 Chronic Other injuries and conditions due to external causes (1 source) Foreign body in bladder 09-06-2022 Episodic Other nervous system disorders (1 source) Neuropathy 08-09-2022 Chronic Other screening for suspected conditions (not mental disorders or infectious disease) (2 sources) Abnormal electrocardiogram [ECG] [EKG]; Translations: [Abnormal electrocardiogram (ECG) (EKG)] Onset: 01-11-2023 Episodic Spondylosis; intervertebral disc disorders; other back problems (1 source) Lumbar spondylosis; Translations: [Lumbar spondylosis] Onset: 11-13-2018 11-13-2018 Chronic Syncope (7 sources) Vasovagal syncope; Translations: [Syncope] Onset: 04-04-2022 11-19-2018 Episodic Thyroid disorders (1 source) Hypothyroidism, unspecified; Translations: [HYPOTHYROIDISM UNSPECIFIED] Onset: 11-10-2021 Chronic Thyroid disorders (1 source) Disorder of thyroid gland 08-09-2022 Episodic Unclassified (1 source) CONTACT W/AND (SUSP) EXPOS COVID-19; Translations: [CONTACT W/AND (SUSP) EXPOS COVID-19] Onset: 12-31-2021 Unclassified (1 source) Long-term current use of aspirin 08-10-2022 Unclassified (1 source) Other ventricular tachycardia; Translations: [Other ventricular tachycardia] Onset: 01-11-2023 Past or Other Problems Problem Classification Problem Date Documented Da te Episodic/Chronic Acute bronchitis (1 source) Acute bronchitis, unspecified; Translations: [ACUTE BRONCHITIS UNSPECIFIED] Onset: 12-31-2021 Episodic Administrative/social admission (2 sources) Impaired mobility; Translations: [Impaired mobility] Onset: 11-15-2018 11-15-2018 Episodic Genitourinary symptoms and ill-defined conditions (1 source) Personal history of urinary (tract) infections; Translations: [PERS HX URINARY TRACT INFECTIONS] Onset: 12-31-2021 Episodic Malaise and fatigue (1 source) Weakness; Translations: [WEAKNESS] Onset: 12-31-2021 Episodic 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 source) long term (current) use of aspirin; Translations: [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 WORKER HELPER CURRENT USE OF ASPIRIN] Onset: 12-31-2021 Episodic 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 source) 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) drug therapy; Translations: [OTH GROUP HOME CURRENT DRUG THERAPY] Onset: 12-31-2021 Episodic Residual codes; unclassified (2 sources) Localized edema; Translations: [Localized edema] Onset: 04-04-2022 Episodic Spondylosis; intervertebral disc disorders; other back problems (10 sources) Lumbar radiculopathy; Translations: [Intractable low back pain] Onset: 11-04-2018 11-04-2018 Episodic Unclassified (1 source) Other ventricular tachycardia; Translations: [Other ventricular tachycardia] Onset: 01-11-2023 Results Test Name Value Interpretation Reference Range Facil ity Office Visiton 01-11-2023 Follow-up visit [id number] Treva [place] 1935 F Date Provider Department Center 01/11/2023 LESLY GASPAR CARD [facility] Family History Problem Relation Age of Onset Hypertension Mother Lupus Mother Coronary artery disease Mother Heart attack Mother Hypertension Father Aneurysm Father Coronary artery disease Father Hypertension Sister Lupus Sister Family Status - Relation Status Age at Mother Father Sister Level of Service:83342 MO OFFICE/OUTPATIENT ESTABLISHED MOD MDM 30-39 MIN Normal [facility] Lab Reportson 12-23-2022 Lab Reports [id number] IFF Normal [facility] Urology Office/Clinic Noteon 12-23-2022 Urology Office/Clinic Note Chief Complaint 3 month F/U HPI Staff Pt is here for 3 month F/U w/PVR Last OV was 09/06/22 Previous DX; Foreign body in bladder Pt had IO cysto/R stent removal wo complications. Hydronephrosis, right CT AP wo con 08/05/22 - Mild right hydronephrosis and ureter without convincing ureteral stones. No renal stones. Mild bilateral perinephric stranding. KUB 08/09/22 - No definite urinary tract calculus seen. Cysto, R RGP, R UD, R URS, R stent placement 08/11/22 due to distal ureteral stenosis. Renal Us done 12-21-22 Dysuria: denies Incomplete bladder emptying: denies Hematuria: denies visible blood Frequency: every 2-3 hours Urgency: denies Nocturia: not very often and when it does its only once Stream: denies stream, some days weaker then others Leaking: _denies Post void dripping: denies Wearing pads/ Depends: denies Urge incontinence: denies Stress incontinence: denies Incontinence without Sensory Awareness: denies Abdominal pain: denies Flank pain: denies Sexual complaints: denies History of Present Illness staff HPI reviewed and agree. Review of Systems PHQ Score Initial Depression Screen Score: 0 no fever, chills, malaise, myalgia. no rash/lesions. no chest pain, palpitations, or SOB. no abdominal pain, nausea, vomiting. no unilateral calf swelling, redness, pain Physical Exam Vitals & Measurements BP: 124/84 HT: 61 in HT: 155 cm WT: 64.8 kg WT: 142.56 lb BMI: 26.97 General: nontoxic, NAD Mouth: moist mucosa Lungs: normal respiratory effort Cardio: regular rate, good distal perfusion Abdomen: nondistended, no suprapubic distention or tenderness, no CVA tenderness Neurologic: Grossly normal Skin: No rashes or suspicious lesions Assessment/Plan Dr. Harrison pt 1. Hydronephrosis, right (N13.30: Unspecified hydronephrosis) Pt presented to ER due to syncope. [place] was found incidentally on CT. CT AP wo con 08/05/22 - Mild right hydronephrosis and ureter without convincing ureteral stones. No renal stones. Mild bilateral perinephric stranding. KUB 08/09/22 - No definite urinary tract calculus seen. S/p Cysto, R RGP, R UD, R URS, R stent placement 08/11/22 due to distal ureteral stenosis. S/p Cysto/R stent removal 09/06/22. JAC 12/21/22 TBH - moderate bilateral pelviectasis, R>L Denies any pain, nausea, or gross hematuria. Denies frequent UTI Reports Dr. Bellamy told her she had renal dilatation when she had a cystoscopy many years ago. Renal fxn quite stable 11/18/18 - BUN 11. Cr 0.58. GFR >60. 12/16/22 - BUN 15. Cr 0.83. GFR >60 2. 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 findings likely chronic but will want to prove stability. f/u in 6 mos w repeat JAC. as long as renal fx remains stable, pt continues without pain or other complications, and hydro isn't worsening, then we can discontinue monitoring at that time. pt/daughter pleased w this plan. Follow-up With When Contact Information ABDULLAHI NOONAN, MIKAYLA Pereira, URL [address] [place] [address] [phone] Additional Instructions: 6 mos w/ renal fxn (per PCP) Patient Education Hydronephrosis Documentation recorded by the ananth Gan accurately reflects the services(s) I performed and decisions made by me. Authenticated by Mikayla Weiss PA-C on 12/23/2022 12:13:28. I, Jacquie Gan, personally scribed for Mikayla Weiss PA-C on 12/22/2022 12:26:01. . Problem List/Past Medical History Ongoing Arthritis Aspirin long-term use Atrial fibrillation Deafness Foreign body in bladder Hydronephrosis, right Hyperlipidemia Hypertension Kidney stone Neuropathy Syncope Thyroid disease Ureteral stenosis Historical No qualifying data Procedure/Surgical History Appendectomy, Bilateral salpingo-oophorectomy, Cataract extraction and insertion of intraocular lens, Cholecystectomy, Colonoscopy, Procedure on back, Tonsillectomy. Medications amLODIPine 10 mg Tab aspirin 81 mg oral capsule, Oral, q4hr, Not taking carvedilol, Oral Cipro 250 mg Tab, 250 mg= 1 tab(s), Oral, Daily, Not taking hydrochlorothiazide, Oral, Daily levothyroxine 88 mcg (0.088 mg) Tab losartan 100 mg Tab Potassium Chloride (Vik-Frjb-Atx 10), Oral, BID pravastatin 80 mg Tab Allergies Motrin (Unknown) atorvastatin (Unknown) predniSONE (Rash) Social History Tobacco Never (less than 100 in lifetime) Tobacco Use:. Never Smokeless Tobacco Use:., 12/22/2022 Family History Arthritis: Mother and Father. Hypertension: Mother and Father. Immunizations Vaccine Date Status influenza virus vaccine, inactivated 12/20/2021 Recorded influenza virus vaccine, inactivated 12/21/2020 Recorded influenza virus vaccine, inactivated 01/09/2019 Recorded influenza virus vaccine, inactivated 11/29/2017 Recorded influenza virus vaccine, inactivated 01/02/2017 Recorded influenza virus vaccine, (more content not included)... Normal [facility] Comment on above: Result Comment: Elec tronically Signed By: MIKAYLA WEISS PA-C\.br\Date and Time Signed: 12/23/22 12:13 EDT\.br\Electronically Co-Signed By: Jacquie Gan\.br\Date and Time Co-Signed: 12/22/22 12:27 EDT Ambulatory Visit Summaryon 1 02-21-2022 Ambulatory Visit Summary HIRAM MADRID :1935 Visit Date:12/22/2022 Ambulatory Visit Instructions Your Diagnosis Hydronephrosis, right Ureteral stenosis Tests Performed Urnls Dip Stick Auto w/o Microscopy POC 74000 US Renal -- Results Pending -- Please visit your patient portal for your results or contact your primary care physician. Your Care Team Attending Physician - MIKAYLA WEISS PA-C Primary Care Physician - Addy Daniels MD This Is Your Medications List ciprofloxacin (Cipro 250 mg Tab) Contact prescribing physician if questions or concerns amlodipine (amLODIPine 10 mg Tab) aspirin (aspirin 81 mg oral capsule) carvedilol hydrochlorothiazide levothyroxine (levothyroxine 88 mcg (0.088 mg) Tab) losartan (losartan 100 mg Tab) potassium chloride (Potassium Chloride (Tbd-Ajfs-Wyg 10)) pravastatin (pravastatin 80 mg Tab) Procedures Performed Appendectomy, Bilateral salpingo-oophorectomy, Cataract extraction and insertion of intraocular lens, Cholecystectomy, Colonoscopy, Procedure on back, Tonsillectomy. Discharge Vitals Blood Pressure 124/84 Height 155 cm Height 61 in Weight 64.8 kg Weight 142.56 lb BMI 26.97 What to do next Scheduled Follow-Up Appointments June. 2023 9:30 AM EDT With: MIKAYLA WEISS PA-C Where: [facility] Natalya Anders [facility] Patient Educationon 12-23-19 Patient Education Urology Hydronephrosis Hydronephrosis is the swelling of one or both kidneys due to a blockage that stops urine from flowing out of the body. Kidneys filter waste from the blood and produce urine. This condition can lead to kidney failure and may become life-threatening if not treated promptly. What are the causes? In infants and children, common causes include problems that occur when a baby is developing in the womb. These can include problems in the kidneys or in the tubes that drain urine into the bladder (ureters). In adults, common causes include: ? Kidney stones. ? . ? A tumor or cyst in the abdomen or pelvis. ? An enlarged prostate gland. Other causes include: ? Bladder infection. ? Scar tissue from a previous surgery or injury. ? A blood clot. ? Cancer of the prostate, bladder, uterus, ovary, or colon. What are the signs or symptoms? Symptoms of this condition include: ? Pain or discomfort in your side (flank) or abdomen. ? Swelling in your abdomen. ? Nausea and vomiting. ? Fever. ? Pain when passing urine. ? Feelings of urgency when you need to urinate. ? Urinating more often than normal. In some cases, you may not have any symptoms. How is this diagnosed? This condition may be diagnosed based on: ? Your symptoms and medical history. ? A physical exam. ? Blood and urine tests. ? Imaging tests, such as an ultrasound, CT scan, or MRI. ? A procedure to look at your urinary tract and bladder by inserting a scope into the urethra (cystoscopy). How is this treated? Treatment for this condition depends on where the blockage is, how long it has been there, and what caused it. The goal of treatment is to remove the blockage. Treatment may include: ? Antibiotic medicines to treat or prevent infection. ? A procedure to place a small, thin tube (stent) into a blocked ureter. The stent will keep the ureter open so that urine can drain through it. ? A nonsurgical procedure that crushes kidney stones with shock waves (extracorporeal shock wave lithotripsy). ? If kidney failure occurs, treatment may include dialysis or a kidney transplant. Follow these instructions at home: ? Take omvf-for-fanppgc and prescription medicines only as told by your health care provider. ? If you were prescribed an antibiotic medicine, take it exactly as told by your health care provider. Do not stop taking the antibiotic even if you start to feel better. ? Rest and return to your normal activities as told by your health care provider. Ask your health care provider what activities are safe for you. ? Drink enough fluid to keep your urine pale yellow. ? Keep all follow-up visits. This is important. Contact a health care provider if: ? You continue to have symptoms after treatment. ? You develop new symptoms. ? Your urine becomes cloudy or bloody. ? You have a fever. Get help right away if: ? You have severe flank or abdominal pain. ? You cannot drink fluids without vomiting. Summary ? Hydronephrosis is the swelling of one or both kidneys due to a blockage that stops urine from flowing out of the body. ? Hydronephrosis can lead to kidney failure and may become life-threatening if not treated promptly. ? The goal of treatment is to remove the blockage. It may include a procedure to insert a stent into a blocked ureter, a procedure to break up kidney stones, or taking antibiotic medicines. ? Follow your health care provider's instructions for taking care of yourself at home, including instructions about drinking fluids, taking medicines, and limiting activities. This information is not intended to replace advice given to you by your health care provider. Make sure you discuss any questions you have with your health care provider. Document Revised: 05/26/2020 Document Reviewed: 05/26/2020 [employer] Patient Education ? 2022 [employer]. Normal [facility] RAD - Ultrasound Reporton RAD - Ultrasound Report [id number] [facility] Reminderson 12-22-2022 Reminders - From: Jacquie Gan To: ERIN Weiss; Sent: 12/22/2022 12:30:05 EDT Show up: 05/23/2023 12:30:00 EDT Subject: JAC and BUN/Creatinine prior to appt Reminder Message Please Remember to:_have pt schedule JAC prior to appt. Please look for BUN/Cr labs from PCP. If unable to locate recent labs, send pt order to complete this. Normal [facility] Orders Onlyon 10-25-2022 Orders Only [id number] Treva Madrid 1935 F Date Provider Department Center 10/25/2022 LESLY GASPAR SONIA [facility] Family History Problem Relation Age of Onset Hypertension Mother Lupus Mother Coronary artery disease Mother Heart attack Mother Hypertension Father Aneurysm Father Coronary artery disease Father Hypertension Sister Lupus Sister Family Status - Relation Status Age at Mother Father Sister [facility] 37on 10-14-2022 38 Increase coreg/carve dilol to 25 mg twice a day- you have 12.5 mg tabs now so take 2 twice a day until this bottle is gone- your next refill will be the higher dose of 25 mg bid. Have labs drawn [facility] Office Visiton 10-14-2022 Follow-up visit [id number] Treva Madrid 1935 F Date Provider Department Center 10/14/2022 LESLY GASPAR SONIA [facility] Family History Problem Relation Age of Onset Hypertension Mother Lupus Mother Coronary artery disease Mother Heart attack Mother Hypertension Father Aneurysm Father Coronary artery disease Father Hypertension Sister Lupus Sister Family Status - Relation Status Age at Mother Father Sister Level of Service:71186 MO OFFICE/OUTPATIENT ESTABLISHED MOD MDM 30-[address] [facility] Consent for Procedure/Surger yon 09-07-2022 Consent for Procedure/Surgery [id number]#[id number]:127 [facility] Ambulatory Visit Summaryon 0 09-06-2022 Ambulatory Visit Summary HIRAM MADRID :1935 Visit Date:09/06/2022 Ambulatory Visit Instructions Your Diagnosis Foreign body in bladder Hydronephrosis, right Ureteral stenosis Your Care Team Attending Physician - CHRISTY DUMONT, Raymond Mckeon Primary Care Physician - Jeremiah DUMONT, Addy This Is Your Medications List ciprofloxacin (Cipro 250 mg Tab) Contact prescribing physician if questions or concerns amlodipine (amLODIPine 10 mg Tab) aspirin (aspirin 81 mg oral capsule) carvedilol hydrochlorothiazide levothyroxine (levothyroxine 88 mcg (0.088 mg) Tab) losartan (losartan 100 mg Tab) potassium chloride (Potassium Chloride (Lpp-Edgu-Tcd 10)) pravastatin (pravastatin 80 mg Tab) Procedures Performed Appendectomy, Bilateral salpingo-oophorectomy, Cataract extraction and insertion of intraocular lens, Cholecystectomy, Colonoscopy, Procedure on back, Tonsillectomy. Discharge Vitals Height 155 cm Height 61 in Weight 65 kg Weight 143 lb BMI 27.06 What to do next Scheduled Follow-Up Appointments Monday 2:00 PM EDT With: CHRISTY DUMONT, Raymond Mckeon Where: [facility] Patient Educationon 09-07-19 Patient Education Urology Hydronephrosis Hydronephrosis is the swelling of one or both kidneys due to a blockage that stops urine from flowing out of the body. Kidneys filter waste from the blood and produce urine. This condition can lead to kidney failure and may become life-threatening if not treated promptly. What are the causes? In infants and children, common causes include problems that occur when a baby is developing in the womb. These can include problems in the kidneys or in the tubes that drain urine into the bladder (ureters). In adults, common causes include: ? Kidney stones. ? . ? A tumor or cyst in the abdomen or pelvis. ? An enlarged prostate gland. Other causes include: ? Bladder infection. ? Scar tissue from a previous surgery or injury. ? A blood clot. ? Cancer of the prostate, bladder, uterus, ovary, or colon. What are the signs or symptoms? Symptoms of this condition include: ? Pain or discomfort in your side (flank) or abdomen. ? Swelling in your abdomen. ? Nausea and vomiting. ? Fever. ? Pain when passing urine. ? Feelings of urgency when you need to urinate. ? Urinating more often than normal. In some cases, you may not have any symptoms. How is this diagnosed? This condition may be diagnosed based on: ? Your symptoms and medical history. ? A physical exam. ? Blood and urine tests. ? Imaging tests, such as an ultrasound, CT scan, or MRI. ? A procedure to look at your urinary tract and bladder by inserting a scope into the urethra (cystoscopy). How is this treated? Treatment for this condition depends on where the blockage is, how long it has been there, and what caused it. The goal of treatment is to remove the blockage. Treatment may include: ? Antibiotic medicines to treat or prevent infection. ? A procedure to place a small, thin tube (stent) into a blocked ureter. The stent will keep the ureter open so that urine can drain through it. ? A nonsurgical procedure that crushes kidney stones with shock waves (extracorporeal shock wave lithotripsy). ? If kidney failure occurs, treatment may include dialysis or a kidney transplant. Follow these instructions at home: ? Take bnju-iuf-qomeojc and prescription medicines only as told by your health care provider. ? If you were prescribed an antibiotic medicine, take it exactly as told by your health care provider. Do not stop taking the antibiotic even if you start to feel better. ? Rest and return to your normal activities as told by your health care provider. Ask your health care provider what activities are safe for you. ? Drink enough fluid to keep your urine pale yellow. ? Keep all follow-up visits. This is important. Contact a health care provider if: ? You continue to have symptoms after treatment. ? You develop new symptoms. ? Your urine becomes cloudy or bloody. ? You have a fever. Get help right away if: ? You have severe flank or abdominal pain. ? You cannot drink fluids without vomiting. Summary ? Hydronephrosis is the swelling of one or both kidneys due to a blockage that stops urine from flowing out of the body. ? Hydronephrosis can lead to kidney failure and may become life-threatening if not treated promptly. ? The goal of treatment is to remove the blockage. It may include a procedure to insert a stent into a blocked ureter, a procedure to break up kidney stones, or taking antibiotic medicines. ? Follow your health care provider's instructions for taking care of yourself at home, including instructions about drinking fluids, taking medicines, and limiting activities. This information is not intended to replace advice given to you by your health care provider. Make sure you discuss any questions you have with your health care provider. Document Revised: 05/26/2020 Document Reviewed: 05/26/2020 [employer] Patient Education ? 2022 [employer] [place] [facility] Urology Office/Clinic Noteon 09-06-2022 Urology Office/Clinic Note Chief Complaint Cysto/Rt. stent removal HPI Staff This is a 86 year old female here for Cysto/Rt. stent removal. History of Present Illness Tests reviewed: reviewed op note. I have reviewed the previous health record information and history for this patient from Dr. Harrison. I have reviewed and verified the staff HPI to be accurate for this encounter. There have been no associated fever, chills, flank pain, or blood in the urine. Denies any urinary infections since last encounter. Review of Systems PHQ Score Initial Depression Screen Score: 0 ROS - Provider Constitutional: denies weight loss, denies hot flashes. Eyes: denies eye problems. Gastrointestinal: denies nausea, denies vomiting. Cardiovascular: denies chest pain or angina. Integumentary: no dryness Musculoskeletal: denies musculoskeletal symptoms. ENMT: denies otolaryngeal symptoms. Respiratory: no shortness of breath. Heme/Lymph: denies easy bleeding tendency, denies easy bruising tendency. Psychiatric: no confusion, no anxiety. Genitourinary: See HPI. Physical Exam Vitals & Measurements HT: 61 in HT: 155 cm WT: 65 kg WT: 143 lb BMI: 27.06 General Appearance: alert , no acute distress, well nourished, well developed female. Genitourinary: bladder nonpalpable, no flank pain. Procedure Operative Information Anesthesia Type: Local Procedure: Local Cystoscopy with Stent Removal Complications: None Surgical risks, benefits, details of the procedure have been explained to the patient. Full informed consent has been obtained. Intraoperative Information Prepped: Patient is placed in modified dorso/lithotomy position. The patient was prepped with the Betadine solution. Anesthesia: 2% Xylocaine Jelly per urethra. Procedure: Cystoscopy and right stent removal. The flexible Cystoscope was passed in retrograde fashion into the bladder without difficulty. The bladder was viewed in entirety and found to be without tumors or stones. Mild inflammation was seen surrounding the orifice with the stent seen protruding from it. The stent was then grasped and removed in its entirety. Specimens Removed: None Postoperative Information The patient tolerated the procedure well and was subsequently discharged home. Assessment/Plan 1. Foreign body in bladder (T19.1XXA: Foreign body in bladder, initial encounter) Pt had IO cysto/R stent removal today wo complications. Follow up 3 mos no labs or sooner if needed. Pt understands and agrees with plan. 2. Hydronephrosis, right (N13.30: Unspecified hydronephrosis) CT AP wo con 08/05/22 - Mild right hydronephrosis and ureter without convincing ureteral stones. No renal stones. Mild bilateral perinephric stranding. KUB 08/09/22 - No definite urinary tract calculus seen. Cysto, R RGP, R UD, R URS, R stent placement 08/11/22 due to distal ureteral stenosis. See #1. 3. 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 Follow-up With When Contact Information CHRISTY DUMONT, Raymond Mckeon, URL [facility] [address], [place] [address]- Additional Instructions: 3 mos no labs Patient Education Hydronephrosis I, Josefa Stewart, personally scribed for Dr. Harrison on 09/06/2022 12:58:53. . Documentation recorded by the scribe, Josefa Stewart, accurately reflects the services(s) I performed and decisions made by me. Authenticated by Dr. Harrison on 09/06/2022 13:02:43. Problem List/Past Medical History Ongoing Arthritis Aspirin long-term use Atrial fibrillation Deafness Foreign body in bladder Hydronephrosis, right Hyperlipidemia Hypertension Kidney stone Neuropathy Syncope Thyroid disease Ureteral stenosis Historical No qualifying data Procedure/Surgical History Appendectomy, Bilateral salpingo-oophorectomy, Cataract extraction and insertion of intraocular lens, Cholecystectomy, Colonoscopy, Procedure on back, Tonsillectomy. Medications amLODIPine 10 mg Tab aspirin 81 mg oral capsule, Oral, q4hr carvedilol, Oral Cipro 250 mg Tab, 250 mg= 1 tab(s), Oral, Daily hydrochlorothiazide, Oral, Daily levothyroxine 88 mcg (0.088 mg) Tab losartan 100 mg Tab Potassium Chloride (Ryr-Ynvs-Yar 10), Oral, BID pravastatin 80 mg Tab Allergies Motrin (Unknown) atorvastatin (Unknown) predniSONE (Rash) Social History Tobacco Never (less than 100 in lifetime) Tobacco Use:. Never Smokeless Tobacco Use:., 09/06/2022 Family History Arthritis: Mother and Father. Hypertension: Mother and Father. Immunizations Vaccine Date Status influenza virus vaccine, inactivated 12/20/2021 Recorded influenza virus vaccine, inactivated 12/21/2020 Recorded influenza virus vaccine, inactivated 01/09/2019 Recorded influenza virus vaccine, inactivated 11/29/2017 Recorded influenza virus vaccine, inactivated 01/02/2017 Recorded influenza virus vaccine, inactivated 12/06/2016 Rec (more content not included)... [facility] Comment on above: Result Comment: Elec tronically Signed By: Raymond HARRISON MD\.br\Date and Time Signed: 09/06/22 13:02 EDT\.br\Electronically Co-Signed By: Josefa Stewart\.br\Date and Time Co-Signed: 09/06/22 13:01 EDT Operative Reporton Operative Report [id number]:127 [facility] RAD - MISCon 08-12-2022 RAD - MISC [id number]: 127 [facility] Ambulatory Visit Summaryon 0 08-10-2022 Ambulatory Visit Summary HIRAM MADRID :1935 Visit Date:08/10/2022 Ambulatory Visit Instructions Your Diagnosis Hydronephrosis, right Aspirin long-term use Tests Performed Urnls Dip Stick Auto w/o Microscopy POC 92893 Your Care Team Attending Physician - Raymond HARRISON MD Primary Care Physician - Addy Daniels MD This Is Your Medications List Contact prescribing physician if questions or concerns amlodipine (amLODIPine 10 mg Tab) aspirin (aspirin 81 mg oral capsule) carvedilol hydrochlorothiazide levothyroxine (levothyroxine 88 mcg (0.088 mg) Tab) losartan (losartan 100 mg Tab) potassium chloride (Potassium Chloride (Leu-Zezp-Kus 10)) pravastatin (pravastatin 80 mg Tab) Procedures Performed Appendectomy, Bilateral salpingo-oophorectomy, Cataract extraction and insertion of intraocular lens, Cholecystectomy, Colonoscopy, Procedure on back, Tonsillectomy. Discharge Vitals Heart Rate (Peripheral) 71 Blood Pressure 154/69 Height 155 cm Height 61 in Weight 65 kg Weight 143 lb BMI 27.06 What to do next You Need to Schedule the Following Appointments Follow Up with CHRISTY DUMONT, GINO Eller When: Where: [facility] [address], [place] [address]- Medications What How Much When Instructions Unchanged amlodipine (amLODIPine 10 mg Tab) 30 EA, TAKE 1 TABLET BY MOUTH ONCE DAILY Contact prescribing physician if questions or concerns Unchanged aspirin (aspirin 81 mg oral capsule) Every 4 hours Contact prescribing physician if questions or concerns Unchanged carvedilol Contact prescribing physician if questions or concerns Unchanged hydrochlorothiazide Every day Contact prescribing physician if questions or concerns Unchanged levothyroxine (levothyroxine 88 mcg (0.088 mg) Tab) 90 EA, TAKE 1 TABLET BY MOUTH ONCE DAILY IN THE MORNING ON AN EMPTY STOMACH Contact prescribing physician if questions or concerns Unchanged losartan (losartan 100 mg Tab) 90 EA, TAKE 1 TABLET BY MOUTH ONCE DAILY Contact prescribing physician if questions or concerns Unchanged potassium chloride (Potassium Chloride (Qpy-Eong-Guj 10)) 2 times a day Contact prescribing physician if questions or concerns Unchanged pravastatin (pravastatin 80 mg Tab) 30 EA, TAKE 1 TABLET BY MOUTH ONCE DAILY Contact prescribing physician if questions or concerns Test Results Urnls Dip Stick Auto w/o Microscopy POC 27083 (08/10/2022) Bilirubin Urine Dipstick - Negative Blood Urine Dipstick - Negative Glucose Urine Dipstick - Negative Ketones Urine Dipstick - Negative Leukocytes Urine Dipstick - Trace Nitrite Urine Dipstick - Negative Protein Urine Dipstick - Negative Specific [place] Urine Dipstick - 1.025 Urine Appearance Urine Dipstick - Clear Urine Color Urine Dipstick - Yellow Urobilinogen Urine Dipstick - Normal 0.2-1 EU/dl pH Urine Dipstick - 7 Allergies Motrin (Unknown) atorvastatin (Unknown) predniSONE (Rash) Problems Ongoing - Any problem that you are currently receiving treatment for. Arthritis Aspirin long-term use Atrial fibrillation Deafness Hydronephrosis, right Hyperlipidemia Hypertension Kidney stone Neuropathy Syncope Thyroid disease [employer] Hydronephrosis Hydronephrosis is the swelling of one or both kidneys due to a blockage that stops urine from flowing out of the body. Kidneys filter waste from the blood and produce urine. This condition can lead to kidney failure and may become life-threatening if not treated promptly. What are the causes? In infants and children, common causes include problems that occur when a baby is developing in the womb. These can include problems in the kidneys or in the tubes that drain urine into the bladder (ureters). In adults, common causes include: ? Kidney stones. ? . ? A tumor or cyst in the abdomen or pelvis. ? An enlarged prostate gland. Other causes include: ? Bladder infection. ? Scar tissue from a previous surgery or injury. ? A blood clot. ? Cancer of the prostate, bladder, uterus, ovary, or colon. What are the signs or symptoms? Symptoms of this condition include: ? Pain or discomfort in your side (flank) or abdomen. ? Swelling in your abdomen. ? Nausea and vomiting. ? Fever. ? Pain when passing urine. ? Feelings of urgency when you need to urinate. ? Urinating more often than normal. In some cases, you may not have any symptoms. How is this diagnosed? This condition may be diagnosed based on: ? Your symptoms and medical history. ? A physical exam. ? Blood and urine tests. ? Imaging tests, such as an ultrasound, CT scan, or MRI. ? A procedure to look at your urinary tract and bladder by inserting a scope into the urethra (cystoscopy). How is this treated? Treatment for this condition depends on where the blockage is, how long it has been there, and what caus (more content not included)... Normal [facility] Ambulatory Visit Summary HIRAM MADRID :1935 Visit Date:08/10/2022 Ambulatory Visit Instructions Your Diagnosis Hydronephrosis, right Aspirin long-term use Tests Performed Urnls Dip Stick Auto w/o Microscopy POC 19728 Your Care Team Attending Physician - CHRISTY DUMONT, Raymond Mckeon Primary Care Physician - Addy Daniels MD This Is Your Medications List Contact prescribing physician if questions or concerns amlodipine (amLODIPine 10 mg Tab) aspirin (aspirin 81 mg oral capsule) carvedilol hydrochlorothiazide levothyroxine (levothyroxine 88 mcg (0.088 mg) Tab) losartan (losartan 100 mg Tab) potassium chloride (Potassium Chloride (Hww-Rwsj-Mze 10)) pravastatin (pravastatin 80 mg Tab) Procedures Performed Appendectomy, Bilateral salpingo-oophorectomy, Cataract extraction and insertion of intraocular lens, Cholecystectomy, Colonoscopy, Procedure on back, Tonsillectomy. Discharge Vitals Heart Rate (Peripheral) 71 Blood Pressure 154/69 Height 155 cm Height 61 in Weight 65 kg Weight 143 lb BMI 27.06 What to do next You Need to Schedule the Following Appointments Follow Up with CHRISTY DUMONT, GINO Eller When: Where: [facility] [address], [place] [address]- Medications What How Much When Instructions Unchanged amlodipine (amLODIPine 10 mg Tab) 30 EA, TAKE 1 TABLET BY MOUTH ONCE DAILY Contact prescribing physician if questions or concerns Unchanged aspirin (aspirin 81 mg oral capsule) Every 4 hours Contact prescribing physician if questions or concerns Unchanged carvedilol Contact prescribing physician if questions or concerns Unchanged hydrochlorothiazide Every day Contact prescribing physician if questions or concerns Unchanged levothyroxine (levothyroxine 88 mcg (0.088 mg) Tab) 90 EA, TAKE 1 TABLET BY MOUTH ONCE DAILY IN THE MORNING ON AN EMPTY STOMACH Contact prescribing physician if questions or concerns Unchanged losartan (losartan 100 mg Tab) 90 EA, TAKE 1 TABLET BY MOUTH ONCE DAILY Contact prescribing physician if questions or concerns Unchanged potassium chloride (Potassium Chloride (Aln-Subd-Krb 10)) 2 times a day Contact prescribing physician if questions or concerns Unchanged pravastatin (pravastatin 80 mg Tab) 30 EA, TAKE 1 TABLET BY MOUTH ONCE DAILY Contact prescribing physician if questions or concerns Test Results Urnls Dip Stick Auto w/o Microscopy POC 75148 (08/10/2022) Bilirubin Urine Dipstick - Negative Blood Urine Dipstick - Negative Glucose Urine Dipstick - Negative Ketones Urine Dipstick - Negative Leukocytes Urine Dipstick - Trace Nitrite Urine Dipstick - Negative Protein Urine Dipstick - Negative Specific [place] Urine Dipstick - 1.025 Urine Appearance Urine Dipstick - Clear Urine Color Urine Dipstick - Yellow Urobilinogen Urine Dipstick - Normal 0.2-1 EU/dl pH Urine Dipstick - 7 Allergies Motrin (Unknown) atorvastatin (Unknown) predniSONE (Rash) Problems Ongoing - Any problem that you are currently receiving treatment for. Arthritis Aspirin long-term use Atrial fibrillation Deafness Hydronephrosis, right Hyperlipidemia Hypertension Kidney stone Neuropathy Syncope Thyroid disease Education Materials Hydronephrosis Hydronephrosis is the swelling of one or both kidneys due to a blockage that stops urine from flowing out of the body. Kidneys filter waste from the blood and produce urine. This condition can lead to kidney failure and may become life-threatening if not treated promptly. What are the causes? In infants and children, common causes include problems that occur when a baby is developing in the womb. These can include problems in the kidneys or in the tubes that drain urine into the bladder (ureters). In adults, common causes include: ? Kidney stones. ? . ? A tumor or cyst in the abdomen or pelvis. ? An enlarged prostate gland. Other causes include: ? Bladder infection. ? Scar tissue from a previous surgery or injury. ? A blood clot. ? Cancer of the prostate, bladder, uterus, ovary, or colon. What are the signs or symptoms? Symptoms of this condition include: ? Pain or discomfort in your side (flank) or abdomen. ? Swelling in your abdomen. ? Nausea and vomiting. ? Fever. ? Pain when passing urine. ? Feelings of urgency when you need to urinate. ? Urinating more often than normal. In some cases, you may not have any symptoms. How is this diagnosed? This condition may be diagnosed based on: ? Your symptoms and medical history. ? A physical exam. ? Blood and urine tests. ? Imaging tests, such as an ultrasound, CT scan, or MRI. ? A procedure to look at your urinary tract and bladder by inserting a scope into the urethra (cystoscopy). How is this treated? Treatment for this condition depends on where the blockage is, how long it has been there, and what caus (more content not included)... Normal [facility] Consent for Procedure/Surger yon 08-10-2022 Consent for Procedure/Surgery [id number]:[id number] Normal [facility] Formson 08-10-2022 Forms [id number]: 127 [facility] Patient Educationon 08-11-19 Patient Education Urology Hydronephrosis Hydronephrosis is the swelling of one or both kidneys due to a blockage that stops urine from flowing out of the body. Kidneys filter waste from the blood and produce urine. This condition can lead to kidney failure and may become life-threatening if not treated promptly. What are the causes? In infants and children, common causes include problems that occur when a baby is developing in the womb. These can include problems in the kidneys or in the tubes that drain urine into the bladder (ureters). In adults, common causes include: ? Kidney stones. ? . ? A tumor or cyst in the abdomen or pelvis. ? An enlarged prostate gland. Other causes include: ? Bladder infection. ? Scar tissue from a previous surgery or injury. ? A blood clot. ? Cancer of the prostate, bladder, uterus, ovary, or colon. What are the signs or symptoms? Symptoms of this condition include: ? Pain or discomfort in your side (flank) or abdomen. ? Swelling in your abdomen. ? Nausea and vomiting. ? Fever. ? Pain when passing urine. ? Feelings of urgency when you need to urinate. ? Urinating more often than normal. In some cases, you may not have any symptoms. How is this diagnosed? This condition may be diagnosed based on: ? Your symptoms and medical history. ? A physical exam. ? Blood and urine tests. ? Imaging tests, such as an ultrasound, CT scan, or MRI. ? A procedure to look at your urinary tract and bladder by inserting a scope into the urethra (cystoscopy). How is this treated? Treatment for this condition depends on where the blockage is, how long it has been there, and what caused it. The goal of treatment is to remove the blockage. Treatment may include: ? Antibiotic medicines to treat or prevent infection. ? A procedure to place a small, thin tube (stent) into a blocked ureter. The stent will keep the ureter open so that urine can drain through it. ? A nonsurgical procedure that crushes kidney stones with shock waves (extracorporeal shock wave lithotripsy). ? If kidney failure occurs, treatment may include dialysis or a kidney transplant. Follow these instructions at home: ? Take fqhd-yjr-qzwraqx and prescription medicines only as told by your health care provider. ? If you were prescribed an antibiotic medicine, take it exactly as told by your health care provider. Do not stop taking the antibiotic even if you start to feel better. ? Rest and return to your normal activities as told by your health care provider. Ask your health care provider what activities are safe for you. ? Drink enough fluid to keep your urine pale yellow. ? Keep all follow-up visits. This is important. Contact a health care provider if: ? You continue to have symptoms after treatment. ? You develop new symptoms. ? Your urine becomes cloudy or bloody. ? You have a fever. Get help right away if: ? You have severe flank or abdominal pain. ? You cannot drink fluids without vomiting. Summary ? Hydronephrosis is the swelling of one or both kidneys due to a blockage that stops urine from flowing out of the body. ? Hydronephrosis can lead to kidney failure and may become life-threatening if not treated promptly. ? The goal of treatment is to remove the blockage. It may include a procedure to insert a stent into a blocked ureter, a procedure to break up kidney stones, or taking antibiotic medicines. ? Follow your health care provider's instructions for taking care of yourself at home, including instructions about drinking fluids, taking medicines, and limiting activities. This information is not intended to replace advice given to you by your health care provider. Make sure you discuss any questions you have with your health care provider. Document Revised: 05/26/2020 Document Reviewed: 05/26/2020 [employer] Patient Education ? 2022 [employer] [facility] Urology Office/Clinic Noteon 08-10-2022 Urology Office/Clinic Note Chief Complai nt Kidney stones HPI Staff New Pt follow up to [facility] on 08/05/[address] to [address] scan done 08/05/22 shows mild right hydronephrosis without convincing ureteral stones. KUB done 08/09/22 shows no definite urinary tract calculus seen. PVR today 71 cc. Dysuria: denies pain and burning Incomplete bladder emptying: unsure Hematuria: denies visible blood Frequency: every hour Urgency: denies Nocturia: every hour Stream: denies hesitancy, medium stream Leaking: denies Post void dripping: denies Wearing pads/ Depends: denies Urge incontinence: denies Stress incontinence: denies Incontinence without Sensory Awareness: denies Abdominal pain: denies Flank pain: Rt sided flank pain History of Present Illness Tests reviewed: reviewed UA, ER records, KUB, CT. I have reviewed the previous health record information and history for this patient. I have reviewed and verified the staff HPI to be accurate for this encounter. There have been no associated fever, chills, flank pain, or blood in the urine. Denies any urinary infections since last encounter. Review of Systems PHQ Score Initial Depression Screen Score: 0 ROS - Provider Constitutional: denies weight loss, denies hot flashes. Eyes: denies eye problems. Gastrointestinal: denies nausea, denies vomiting. Cardiovascular: denies chest pain or angina. Integumentary: no dryness Musculoskeletal: denies musculoskeletal symptoms. ENMT: denies otolaryngeal symptoms. Respiratory: no shortness of breath. Heme/Lymph: denies easy bleeding tendency, denies easy bruising tendency. Psychiatric: no confusion, no anxiety. Genitourinary: See HPI. Physical Exam Vitals & Measurements HR: 71(Peripheral) BP: 154/69 HT: 61 in HT: 155 cm WT: 65 kg WT: 143 lb BMI: 27.06 General Appearance: alert , no acute distress, well nourished, well developed female. Head: normocephalic . Eyes: normal orbit and globe. ENMT: normal examination of external ears. Chest: Lungs CTA, respirations non labored . Cardiovascular: regular rate and rhythm. Abdomen: soft, non distended, mild R sided tenderness, no mass or organomegaly, no hernia. Genitourinary: bladder nonpalpable, no flank tenderness. Lymph Nodes: unremarkable palpation of the cervical area. Skin: warm, dry, no bruising. Psychiatric: cooperative, affect appropriate for age, normal judgement, euthymic mood. Assessment/Plan Hiram is an 86 yo female new pt following up to [facility] ER visit on 08/05/22 due to nausea, vomiting, and syncope. Was taken to the ER by squad. Discharged with prophylactic Keflex 500 mg bid x 7 days, Flomax, Naproxen, and Oxycodone. Pt here with family member today. PVR today 71 cc. 1. Hydronephrosis, right (N13.30: Unspecified hydronephrosis) CT AP wo con 08/05/22 - Mild right hydronephrosis and ureter without convincing ureteral stones. No renal stones. Mild bilateral perinephric stranding. KUB 08/09/22 - No definite urinary tract calculus seen. UA today shows trace leuks. States she was told she had a 5 mm stone in the ER. Still having pain on the R side under her rib, does not wrap. Has not passed anything. R side tender along ureter on exam. Reviewed imaging with pt, CT scan unclear, possible that she has a ureteral stone. Discussed options including letting pt try to pass the stone with MET for another week or two vs add pt onto surgery schedule tomorrow or next week for R URS, possible laser litho/basket extraction, stent placement. Feels always nauseated and dizzy. Will schedule R URS, possible laser litho/basket extraction, R stent placement. The procedural risks, benefits, details, and treatment alternatives have been discussed with the patient. These include bleeding, infection, inability to break or retrieve all of the stone, injury to the ureter (the tube which connects the kidney to the bladder), injury to the kidney scarring of the ureter, and need for repeat procedures, among others. Full informed consent has been obtained. Will order General anesthesia. 2. Aspirin long-term use (Z79.82: jail (current) use of aspirin) No other BTs. Follow-up With When Contact Information Raymond HARRISON MD, URL [facility] [address], [place] [address]- Additional Instructions: schedule R URS, possible laser litho/basket extraction, stent placement Patient Education Hydronephrosis I, Josefa Stewart, personally scribed for Dr. Harrison on 08/10/2022 09:37:50. . Documentation recorded by the scribe, Josefa Stewart, accurately reflects the services(s) I performed and decisions made by me. Authenticated by Dr. Harrison on 08/10/2022 09:39:43. Problem List/Past Medical History Ongoing Arthritis Aspirin long-term use Atrial fibrillation Deafness Hydronephrosis, right Hyperlipidemia Hypertension Kidney stone Neuropathy Syncope Thyroid disease Historical No qualifyin (more content not included)... Normal [facility] Comment on above: Result Comment: Elec tronically Signed By: Raymond HARRISON MD\.br\Date and Time Signed: 08/10/22 09:39 EDT\.br\Electronically Co-Signed By: Josefa Stewart\.br\Date and Time Co-Signed: 08/10/22 09:38 EDT XR KUBon 08-09-2022 XR [address]UB [address] [address] XRay Report Signed Patient: Hiram Madrid MR#: [id number] : 1935 Acct:[id number] Age/Sex: 86 / F ADM Date: 08/09/22 Loc: XD Room: Type: [facility] Attending Dr: Raymond Harrison MD Copies to: Raymond Harrison MD Ordering Provider: Raymond Harrison MD Date of Service: 08/09/22 XR/XR KUB: URETERAL STONE KUB: CLINICAL INFORMATION: Right ureteral stone COMPARISON: CT abdomen and pelvis 08/05/2022 FINDINGS: Phleboliths are seen within the pelvis. No definite urinary tract calculus is seen. No bowel obstruction or free air. XR/XR KUB IMPRESSION: NO DEFINITE URINARY TRACT CALCULUS IS SEEN. Impression dictated by: Kameron Lopez Jr., D.O.08/09/2022 3:58 PM Dictation Location: [place] [address] Transcribed By: [facility] 08/09/22 1558 Dictated By: Kameron Lopez Jr, DO 08/09/22 1555 Signed By: 08/09/22 1558 Normal [facility] CT abdomen pelvis wo conon 0 08-06-2022 CT abdomen pelvis wo con [address] [address] [address] Scan Report Signed Patient: Hiram Madrid MR#: [id number] : 1935 Acct:[id number] Age/Sex: 86 / F ADM Date: 08/05/22 Loc: ER Room: Type: [facility] ER Attending Dr: Copies to: Camacho Ladd DO Ordering Provider: Camacho Ladd DO Date of Service: 08/05/22 CT/CT abdomen pelvis wo con: r/o sbo CT abdomen and pelvis without contrast CLINICAL DATA: Dry heaves, loss of appetite, abdominal pain, diarrhea and dysuria. COMPARISON: None Spiral images were obtained through the abdomen and pelvis without contrast. This CT exam was performed using one or more following dose reduction techniques: Automated exposure control, adjustment of the mA and/or kV according to patient size, or use of iterative reconstruction technique. Limited cuts through the lung bases show a lingular granuloma. Assessment of the intra-abdominal organs is slightly limited by the absence of contrast and streak artifact from lumbar hardware. There are clips from prior cholecystectomy. No intrahepatic masses are identified. The spleen, pancreas and adrenal glands show no acute findings. There is mild bilateral perinephric fibrofatty stranding. No renal stones are noted. There is mild right hydronephrosis and hydroureter. There are pelvic phlebolith however no definite ureteral stones are identified. There is prominent atherosclerotic plaque involving the aorta, iliac and splenic arteries. There are no enlarged nodes or ascites. The stomach is mildly distended with air and food debris. The small bowel loops are normal caliber. There is a small amount of stool within the right colon. The left colon is underdistended. There are left-sided colonic diverticula. There is dextroscoliotic curvature with postoperative and degenerative changes involving the spine. Images through the pelvis show no dilated small bowel loops. The appendix is surgically absent. There is minimal distal colonic stool. There are some additional diverticula, without associated active inflammation. There is subtle heterogeneity within the uterus toward the right and fibroid change is not excluded. There are no dominant adnexal cysts. The urinary bladder shows no CT abnormalities. No ascites is identified. There are mild degenerative changes at the SI joints and hips. CT/CT abdomen pelvis wo con IMPRESSION: MODERATE ATHEROSCLEROTIC DISEASE. MILD RIGHT HYDRONEPHROSIS WITHOUT CONVINCING URETERAL STONES. DIVERTICULOSIS. NO OTHER ACUTE FINDINGS. Impression dictated by: Faye Wyman M.D.08/06/2022 8:43 AM Dictation Location: [place] [address] Transcribed By: [facility] 08/06/22 0843 Dictated By: Faye Wyman MD 08/06/22 0830 Signed By: 08/06/22 0843 Normal [facility] Alanine aminotransferase [En zymatic activity/volume] in Serum or PlasmaOrdered By: Camacho Ladd on 08-05-2022 ALT [Catalytic activity/Vol] 16 U/L 7-52 [facility] Albumin [Mass/volume] in Ser um or Plasma by Bromocresol green (BCG) dye binding methoOrdered By: Camacho Ladd on 08-05-2022 Albumin BCG dye [Mass/Vol] 4.4 g/dL 3.5-5.7 [facility] Alkaline phosphatase [Enzyma tic activity/volume] in Serum or PlasmaOrdered By: Camacho Ladd on 08-05-2022 ALP [Catalytic activity/Vol] 61 U/L 34-104 [facility] Aspartate aminotransferase [ Enzymatic activity/volume] in Serum or PlasmaOrdered By: Camacho Ladd on 08-05-2022 AST [Catalytic activity/Vol] 21 U/L 13-39 [facility] Automated erythrocytes count in urine sediment (number/area)Ordered By: Camacho Ladd on 08-05-2022 RBC Auto (Urine sed) [#/Area] 0-1 [HPF] 0-4 [facility] Automated leukocytes count i n urine sediment (number/area)Ordered By: Camacho Ladd on 08-05-2022 WBC Auto (Urine sed) [#/Area] 1-2 [HPF] 0-4 [facility] Basic Metabolic Panelon 07-21 Anion gap [Moles/Vol] 17.8 mmol/L High 6.0-15.0 [facility] Comment on above: Performed By: #### H S TROP, HEPATIC, LIPASE, CBC, BMP #### [facility] [address] Calcium [Mass/Vol] 9.7 mg/dL Normal 8.6-10.3 [facility] Comment on above: Performed By: #### H S TROP, HEPATIC, LIPASE, CBC, BMP #### [facility] [address] [place] [address] [place] Chloride [Moles/Vol] 87 mmol/L Low 98-107 [facility] Comment on above: Performed By: #### H S TROP, HEPATIC, LIPASE, CBC, BMP #### [facility] [address] [place] [address] [place] CO2 [Moles/Vol] 23.2 mmol/L Normal 21.0-31.0 [facility] Comment on above: Performed By: #### H S TROP, HEPATIC, LIPASE, CBC, BMP #### [facility] [address] Creatinine [Mass/Vol] 1.03 mg/dL Normal 0.60-1.20 [facility] Comment on above: Performed By: #### H S TROP, HEPATIC, LIPASE, CBC, BMP #### [facility] [address] [place] [address] [place] Creatinine Clr Calc Pharmacy 35.13 [facility] Comment on above: Performed By: #### H S TROP, HEPATIC, LIPASE, CBC, BMP #### [facility] [address] [place] [address] [place] GFR/1.73 sq M.predicted MDRD (S/P/Bld) [Vol rate/Area] 53.284 mL/min/{1.73_m2} [facility] Comment on above: Performed By: #### H S TROP, HEPATIC, LIPASE, CBC, BMP #### [facility] [address] Glucose [Mass/Vol] 156 mg/dL High 70-100 [facility] Comment on above: Result Comment: [facility] Glucose Reference Range is dependent on time and content of last meal. Glucose of more than 200 mg/dL in a nonstressed, ambulatory subject supports the diagnosis of Diabetes Mellitus. ADA recommended reference range Performed By: #### H S TROP, HEPATIC, LIPASE, CBC, BMP #### [facility] [address] Potassium [Moles/Vol] 3.0 mmol/L Low 3.5-5.1 [facility] Comment on above: Performed By: #### H S TROP, HEPATIC, LIPASE, CBC, BMP #### [facility] [address] [place] [address] [place] Sodium [Moles/Vol] 125 mmol/L Low 136-145 [facility] Comment on above: Performed By: #### H S TROP, HEPATIC, LIPASE, CBC, BMP #### [facility] [address] [place] [address] [place] Urea nitrogen [Mass/Vol] 12 mg/dL Normal 7-25 [facility] Comment on above: Performed By: #### H S TROP, HEPATIC, LIPASE, CBC, BMP #### [facility] [address] Basophils Auto (Bld) [#/Vol] Ordered By: Camacho Ladd on 08-05-2022 Basophils (Bld) [#/Vol] 0.1 10*3/uL 0.0-0.2 [facility] Basophils/100 WBC Auto (Bld) Ordered By: Camacho Ladd on 08-05-2022 Basophils/100 WBC (Bld) 0.4 % . F [facility] Bilirubin Test strip Ql (U)O rdered By: Camacho Ladd on 08-05-2022 Bilirubin Ql (U) Negative Negative [facility] Bilirubin.direct [Mass/volum e] in Serum or PlasmaOrdered By: Camacho Ladd on 08-05-2022 Bilirubin.direct [Mass/Vol] 0.10 mg/dL 0.03-0.1 8 [facility] Bilirubin.total [Mass/volume ] in Serum or PlasmaOrdered By: Camacho Ladd on 08-05-2022 Bilirubin [Mass/Vol] 0.7 mg/dL 0.3-1.0 [facility] Calcium [Mass/volume] in Ser um or PlasmaOrdered By: Camacho Ladd on 08-05-2022 Calcium [Mass/Vol] 9.7 mg/dL 8.6-10.3 [facility] Carbon dioxide, total [Moles /volume] in Serum or PlasmaOrdered By: Camacho Ladd on 08-05-2022 CO2 [Moles/Vol] 23.2 mmol/L 21.0-31.0 [facility] Chloride [Moles/volume] in S willa or PlasmaOrdered By: Camacho Ladd on 08-05-2022 Chloride [Moles/Vol] 87 mmol/L 98-107 [facility] Color Auto (U)Ordered By: Ender Ladd on 08-05-2022 Color (U) Yellow Yellow [facility] Complete Blood Count Auto Di ffon 08-05-2022 Basophils (Bld) [#/Vol] 0.1 10*3/uL Normal 0.0-0.2 [facility] Comment on above: Result Comment: PERF ORMED BY: [place] [address] PATHOLOGIST MANAGER METAL GOSIA MCADAMS M.D. Performed By: #### H S TROP, HEPATIC, LIPASE, CBC, BMP #### [address] Basophils/100 WBC (Bld) 0.4 % Normal . F [facility] Comment on above: Performed By: #### H S TROP, HEPATIC, LIPASE, CBC, BMP #### [address] Eosinophils (Bld) [#/Vol] 0.1 10*3/uL Normal 0.0-0.45 [facility] Comment on above: Performed By: #### H S TROP, HEPATIC, LIPASE, CBC, BMP #### [address] Eosinophils/100 WBC (Bld) 0.6 % Normal . [facility] Comment on above: Performed By: #### H S TROP, HEPATIC, LIPASE, CBC, BMP #### [address] Erythrocyte distribution wid th (RBC) [Ratio] 13.6 % Normal 11.9-15.3 [facility] Comment on above: Performed By: #### H S TROP, HEPATIC, LIPASE, CBC, BMP #### [address] Hematocrit (Bld) [Volume fraction] 37.3 % Normal 34.0-46.4 [facility] Comment on above: Performed By: #### H S TROP, HEPATIC, LIPASE, CBC, BMP #### [address] Hemoglobin (Bld) [Mass/Vol] 13.0 g/dL Normal 11.8-15. 4 [facility] Comment on above: Performed By: #### H S TROP, HEPATIC, LIPASE, CBC, BMP #### [address] Lymphocytes (Bld) [#/Vol] 3.1 10*3/uL Normal 1.00-4.8 [facility] Comment on above: Performed By: #### H S TROP, HEPATIC, LIPASE, CBC, BMP #### [address] Lymphocytes/100 WBC (Bld) 21.9 % Normal . [facility] Comment on above: Performed By: #### H S TROP, HEPATIC, LIPASE, CBC, BMP #### [address] MCH (RBC) [Entitic mass] 31.6 pg Normal 24.7-34.3 [facility] Comment on above: Performed By: #### H S TROP, HEPATIC, LIPASE, CBC, BMP #### [address] MCV (RBC) [Entitic vol] 90.4 fL Normal 80-100 [facility] Comment on above: Performed By: #### H S TROP, HEPATIC, LIPASE, CBC, BMP #### [address] Mean Corpuscular HGB Conc 35.0 g/dL Normal 32.0-35.0 [facility] Comment on above: Performed By: #### H S TROP, HEPATIC, LIPASE, CBC, BMP #### [address] Monocytes (Bld) [#/Vol] 1.4 10*3/uL High 0.0-0.8 [facility] Comment on above: Performed By: #### H S TROP, HEPATIC, LIPASE, CBC, BMP #### [address] Monocytes/100 WBC (Bld) 20.58 % High 0.00-20.00 [facility] Comment on above: Result Comment: For adults in ED, MDW > 20.0 may be associated with a higher risk of sepsis during the first 12 hrs of hospital admission Performed By: #### H S TROP, HEPATIC, LIPASE, CBC, BMP #### [address] Monocytes/100 WBC (Bld) 9.6 % Normal . [facility] Comment on above: Performed By: #### H S TROP, HEPATIC, LIPASE, CBC, BMP #### [address] Neutrophils (Bld) [#/Vol] 9.6 10*3/uL High 1.8-7.7 [facility] Comment on above: Performed By: #### H S TROP, HEPATIC, LIPASE, CBC, BMP #### [address] Neutrophils/100 WBC (Bld) 67.5 % Normal . [facility] Comment on above: Performed By: #### H S TROP, HEPATIC, LIPASE, CBC, BMP #### [address] NRBC% 0.1 /100{WBC} Normal 0-0.5 [facility] Comment on above: Performed By: #### H S TROP, HEPATIC, LIPASE, CBC, BMP #### [address] Platelet mean volume (Bld) [Entitic vol] 7.2 fL Normal 6.3-10.7 [facility] Comment on above: Performed By: #### H S TROP, HEPATIC, LIPASE, CBC, BMP #### [address] Platelets (Bld) [#/Vol] 500 10*3/uL High 150-450 [facility] Comment on above: Performed By: #### H S TROP, HEPATIC, LIPASE, CBC, BMP #### [address] RBC (Bld) [#/Vol] 4.13 10*6/uL Normal 3.60-5.00 [facility] Comment on above: Performed By: #### H S TROP, HEPATIC, LIPASE, CBC, BMP #### [facility] [address] [place] [address] [place] WBC (Bld) [#/Vol] 14.2 10*3/uL High 3.8-11.6 [facility] Comment on above: Performed By: #### H S TROP, HEPATIC, LIPASE, CBC, BMP #### [facility] [address] Creatinine [Mass/volume] in Serum or PlasmaOrdered By: Camacho Ladd on 08-05-2022 Creatinine [Mass/Vol] 1.03 mg/dL 0.60-1.20 [facility] Dipstick and Microscopicon 0 08-05-2022 Appearance (U) Cloudy Critically abnormal Clear [facility] Comment on above: Order Comment: Name Collection Type:: Clean-Voided Midstream Performed By: #### A DDONUAPLUS #### [address] Bacteria,Urine None Seen Normal None Seen [facility] Comment on above: Order Comment: Name Collection Type:: Clean-Voided Midstream Performed By: #### A DDONUAPLUS #### [place] [address] [place] Bilirubin,Urine Negative Normal Negative [facility] Comment on above: Order Comment: Name Collection Type:: Clean-Voided Midstream Performed By: #### A DDONUAPLUS #### [place] [address] [place] Color (U) Yellow Normal Yellow [facility] Comment on above: Order Comment: Name Collection Type:: Clean-Voided Midstream Performed By: #### A DDONUAPLUS #### [facility] [address] [place] [address] [place] Glucose Ql (U) Normal Normal Normal [facility] Comment on above: Order Comment: Name Collection Type:: Clean-Voided Midstream Performed By: #### A DDONUAPLUS #### [facility] [address] [place] [address] [place] Hyaline Casts,Urine None Seen Normal 0-8 [facility] Comment on above: Order Comment: Name Collection Type:: Clean-Voided Midstream Result Comment: PERF ORMED BY: [place] [address] PATHOLOGIST MANAGER METAL GOSIA MCADAMS M.D. Performed By: #### A DDONUAPLUS #### [facility] [address] [place] [address] [place] Ketones Ql (U) Negative Normal Negative [facility] Comment on above: Order Comment: Name Collection Type:: Clean-Voided Midstream Performed By: #### A DDONUAPLUS #### [address] Leukocyte esterase Test stri p Ql (U) 1+ High Negative [facility] Comment on above: Order Comment: Name Collection Type:: Clean-Voided Midstream Performed By: #### A DDONUAPLUS #### [place] [address] [place] Nitrite,Urine Negative Normal Negative [facility] Comment on above: Order Comment: Name Collection Type:: Clean-Voided Midstream Performed By: #### A DDONUAPLUS #### [place] [address] [place] Occult Blood,Urine Negative Normal Negative [facility] Comment on above: Order Comment: Name Collection Type:: Clean-Voided Midstream Result Comment: PERF ORMED BY: [place] [address] PATHOLOGIST MANAGER METAL GOSIA MCADAMS M.D. Performed By: #### A DDONUAPLUS #### [facility] [address] [place] [address] [place] pH (U) 7.0 [pH] Normal 5.0-9.0 [facility] Comment on above: Order Comment: Name Collection Type:: Clean-Voided Midstream Performed By: #### A DDONUAPLUS #### [place] [address] [place] Protein,Urine Negative Normal Negative [facility] Comment on above: Order Comment: Name Collection Type:: Clean-Voided Midstream Performed By: #### A DDONUAPLUS #### [place] [address] [place] RBC LM.HPF (Urine sed) [#/Area] 0 /[HPF] Normal 0-4 [facility] Comment on above: Order Comment: Name Collection Type:: Clean-Voided Midstream Performed By: #### A DDONUAPLUS #### [address] Specificy [place],Urine 1.009 Normal 1.001-1.030 [facility] Comment on above: Order Comment: Name Collection Type:: Clean-Voided Midstream Performed By: #### A DDONUAPLUS #### [address] Squamous Epithelial Cell,Urine 0-1 Normal 0-2 [facility] Comment on above: Order Comment: Name Collection Type:: Clean-Voided Midstream Performed By: #### A DDONUAPLUS #### [address] Urobilinogen,Urine Normal Normal Normal [facility] Comment on above: Order Comment: Name Collection Type:: Clean-Voided Midstream Performed By: #### A DDONUAPLUS #### [place] [address] [place] WBC,Urine 1-2 Normal 0-4 [facility] Comment on above: Order Comment: Name Collection Type:: Clean-Voided Midstream Performed By: #### A DDONUAPLUS #### [address] ECG 12 lead ECGon 08-05-2022 ECG 12 lead ECG [facility] [place] [address] [place] [address] Electrocardiograph Report Signed Patient: Hiram Madrid MR#: [id number] : 1935 Acct:[id number] Age/Sex: 86 / F ADM Date: 08/05/22 Loc: ER Room: Type: DEP ER Attending Dr: Ordering Provider: Camacho Ladd DO Date of Service: 08/05/22 ECG/ECG 12 lead ECG: Syncope Copies to: Test Reason : Blood Pressure : 181/079 mmHG Vent. Rate : 066 BPM Atrial Rate : 066 BPM P-R Int : 196 ms QRS Dur : 146 ms QT Int : 466 ms P-R-T Axes : 062 013 010 degrees QTc Int : 488 ms Normal sinus rhythm Right bundle branch block Confirmed by Camacho Ladd DO ([id number]) on 08/06/2022 1:49:12 AM Referred By: Electronically Signed By:Camacho Ladd DO Transcribed By: MUS Signed By Camacho Ladd DO 0149 Normal [facility] Eosinophils Auto (Bld) [#/Vo l]Ordered By: Camacho Ladd on 08-05-2022 Eosinophils (Bld) [#/Vol] 0.1 10*3/uL 0.0-0.45 [facility] Eosinophils/100 WBC Auto (Bl d)Ordered By: Camacho Ladd on 08-05-2022 Eosinophils/100 WBC (Bld) 0.6 % . [facility] Erythrocyte distribution wid th Auto (RBC) [Ratio]Ordered By: Camacho Ladd on 08-05-2022 Erythrocyte distribution wid th (RBC) [Ratio] 13.6 % 11.9-15.3 [facility] Globulin Calc (S) [Mass/Vol] Ordered By: Camacho Ladd on 08-05-2022 Globulin (S) [Mass/Vol] 2.9 g/dL [facility] Glucose [Mass/volume] in Ser um or PlasmaOrdered By: Camacho Ladd on 08-05-2022 Glucose [Mass/Vol] 156 mg/dL 70-100 [facility] Comment on above: ADA recommended refe rence rangeRandom Glucose Reference Range is dependent on time and content of last meal. Glucose of more than 200 mg/dL in a nonstressed, ambulatory subject supports the diagnosis of Diabetes Mellitus. Hematocrit Auto (Bld) [Volum e fraction]Ordered By: Camacho Ladd on 06-16-2023 Hematocrit (Bld) [Volume fraction] 37.3 % 3 4.0-46.4 [facility] Hemoglobin [Mass/volume] in BloodOrdered By: Camacho Ladd on 08-05-2022 Hemoglobin (Bld) [Mass/Vol] 13.0 g/dL 11.8-15. 4 [facility] Hepatic Panelon 08-05-2022 Albumin [Mass/Vol] 4.4 g/dL Normal 3.5-5.7 [facility] Comment on above: Performed By: #### H S TROP, HEPATIC, LIPASE, CBC, BMP #### [facility] [address] [place] [address] [place] Albumin/Globulin [Mass ratio] 1.5 {ratio} Normal [facility] Comment on above: Performed By: #### H S TROP, HEPATIC, LIPASE, CBC, BMP #### [facility] [address] [place] [address] [place] ALP [Catalytic activity/Vol] 61 U/L Normal 34-104 [facility] Comment on above: Performed By: #### H S TROP, HEPATIC, LIPASE, CBC, BMP #### [facility] [address] [place] [id number] [place] ALT [Catalytic activity/Vol] 16 U/L Normal 7-52 [facility] Comment on above: Performed By: #### H S TROP, HEPATIC, LIPASE, CBC, BMP #### [facility] [address] [place] [id number] [place] AST [Catalytic activity/Vol] 21 U/L Normal 13-39 [facility] Comment on above: Performed By: #### H S TROP, HEPATIC, LIPASE, CBC, BMP #### [facility] [address] [place] [id number] [place] Bilirubin [Mass/Vol] 0.7 mg/dL Normal 0.3-1.0 [facility] Comment on above: Performed By: #### H S TROP, HEPATIC, LIPASE, CBC, BMP #### [facility] [address] [place] [id number] [place] Bilirubin,Indirect 0.6 mg/dL Normal [facility] Comment on above: Performed By: #### H S TROP, HEPATIC, LIPASE, CBC, BMP #### [facility] [address] Bilirubin.indirect [Mass/Vol] 0.10 mg/dL Normal 0.03-0 .18 [facility] Comment on above: Performed By: #### H S TROP, HEPATIC, LIPASE, CBC, BMP #### [facility] [address] Globulin (S) [Mass/Vol] 2.9 g/dL Normal F [facility] Comment on above: Performed By: #### H S TROP, HEPATIC, LIPASE, CBC, BMP #### [facility] [address] Protein [Mass/Vol] 7.3 g/dL Normal 6.4-8.9 [facility] Comment on above: Performed By: #### H S TROP, HEPATIC, LIPASE, CBC, BMP #### [facility] [address] Ketones Auto test strip (U) [Mass/Vol]Ordered By: Camacho Ladd on 08-05-2022 Ketones (U) [Mass/Vol] Negative Negative [facility] - UrinalysisOrder ed By: Camacho Ladd on 08-05-2022 Hyaline casts LM Ql (Urine sed) None seen [LPF] 0-8 [facility] Leukocytes [#/volume] correc sofiya for nucleated erythrocytes in Blood by Automated counOrdered By: Camacho Ladd on 08-05-2022 WBC corrected for nucl RBC A uto (Bld) [#/Vol] 14.2 10*3/uL 3.8-11.6 [facility] Lipaseon 08-05-2022 Lipase [Catalytic activity/Vol] 23.0 U/L Normal 11.0 -82.0 [facility] Comment on above: Result Comment: PERF ORMED BY: [place] [address] PATHOLOGIST MANAGER METAL GOSIA MCADAMS M.D. Performed By: #### H S TROP, HEPATIC, LIPASE, CBC, BMP #### [facility] [address] Lipase [Enzymatic activity/v olume] in Serum or PlasmaOrdered By: Camacho Ladd on 08-05-2022 Lipase [Catalytic activity/Vol] 23.0 U/L 11.0 -82.0 [facility] Lymphocytes Auto (Bld) [#/Vo l]Ordered By: Camacho Ladd on 08-05-2022 Lymphocytes (Bld) [#/Vol] 3.1 10*3/uL 1.00-4.8 [facility] Lymphocytes/100 WBC Auto (Bl d)Ordered By: Camacho Ladd on 08-05-2022 Lymphocytes/100 WBC (Bld) 21.9 % . [facility] MCH Auto (RBC) [Entitic mass ]Ordered By: Camacho Ladd on 08-05-2022 MCH (RBC) [Entitic mass] 31.6 pg 24.7-34.3 [facility] MCHC Auto (RBC) [Mass/Vol]Or dered By: Camacho Ladd on 08-05-2022 MCHC (RBC) [Mass/Vol] 35.0 g/dL 32.0-35.0 [facility] MCV Auto (RBC) [Entitic vol] Ordered By: Camacho Ladd on 08-05-2022 MCV (RBC) [Entitic vol] 90.4 fL 80-100 F [facility] Monocyte distribution width [Entitic volume] in Blood by AutomatedOrdered By: Camacho Ladd on 08-05-2022 Monocyte distribution width Auto (Bld) [Entitic vol] 20.58 % 0.00-20.00 [facility] Comment on above: For adults in ED, MD W > 20.0 may be associated with a higher risk of sepsis during the first 12 hrs of hospital admission Monocytes Auto (Bld) [#/Vol] Ordered By: Camacho Ladd on 08-05-2022 Monocytes (Bld) [#/Vol] 1.4 10*3/uL 0.0-0.8 [facility] Monocytes/100 WBC Auto (Bld) Ordered By: Camacho Ladd on 08-05-2022 Monocytes/100 WBC (Bld) 9.6 % . [facility] Neutrophils Auto (Bld) [#/Vo l]Ordered By: Camacho Ladd on 08-05-2022 Neutrophils (Bld) [#/Vol] 9.6 10*3/uL 1.8-7.7 [facility] Neutrophils/100 WBC Auto (Bl d)Ordered By: Camacho Ladd on 08-05-2022 Neutrophils/100 WBC (Bld) 67.5 % . [facility] Nitrite Test strip Ql (U)Ord ered By: Camacho Ladd on 08-05-2022 Nitrite Ql (U) Negative Negative [facility] No Panel InformationOrdered By: Camacho Ladd on 08-05-2022 Estimated GFR (CKD-EPI) 53.284 mL/Min [facility] Creatinine Clearanc e (Chem 35.13 [facility] Nucleated erythrocytes [Pres ence] in Blood by Automated countOrdered By: Camacho Ladd on 08-05-2022 Nucleated RBC Auto Ql (Bld) 0.1 /100{WBC} 0-0.5 [facility] Platelet mean volume Auto (B ld) [Entitic vol]Ordered By: Camacho Ladd on 08-05-2022 Platelet mean volume (Bld) [Entitic vol] 7.2 fL 6.3-10.7 [facility] Platelets Auto (Bld) [#/Vol] Ordered By: Camacho Ladd on 08-05-2022 Platelets (Bld) [#/Vol] 500 10*3/uL 150-450 [facility] Potassium [Moles/volume] in Serum or PlasmaOrdered By: Camacho Ladd on 08-05-2022 Potassium [Moles/Vol] 3.0 mmol/L 3.5-5.1 [facility] Protein Auto test strip (U) [Mass/Vol]Ordered By: Camacho Ladd on 08-05-2022 Protein (U) [Mass/Vol] Negative Negative [facility] Protein [Mass/volume] in Ser um or PlasmaOrdered By: Camacho Ladd on 08-05-2022 Protein [Mass/Vol] 7.3 g/dL 6.4-8.9 [facility] RBC Auto (Bld) [#/Vol]Ordere d By: Camacho Ladd on 08-05-2022 RBC (Bld) [#/Vol] 4.13 10*6/uL 3.60-5.00 [facility] Serum or plasma albumin/glob ulin mass ratioOrdered By: Camacho Ladd on 08-05-2022 Albumin/Globulin [Mass ratio] 1.5 {ratio} [facility] Serum or plasma anion gap de terminationOrdered By: Camacho Ladd on 08-05-2022 Anion gap [Moles/Vol] 17.8 mmol/L 6.0-15.0 [facility] Serum or plasma non-glucuron idated bilirubin measurement (mass/volume)Ordered By: Camacho Ladd on 08-05-2022 Bilirubin.indirect [Mass/Vol] 0.6 mg/dL [facility] Sodium [Moles/volume] in Ser um or PlasmaOrdered By: Camacho Ladd on 08-05-2022 Sodium [Moles/Vol] 125 mmol/L 136-145 [facility] Specific gravity Auto test s trip (U) [Rel density]Ordered By: Camacho Ladd on 08-05-2022 Specific gravity (U) [Rel density] 1.009 1.001-1.030 [facility] Squamous epithelial cells de tection in urine sediment by light microscopyOrdered By: Camacho Ladd on 08-05-2022 Epithelial cells.squamous LM Ql (Urine sed) 0-1 [HPF] 0-2 [facility] Troponin I High Sensitivityo n 08-05-2022 Troponin I High Sensitivity 7.7 pg/mL Normal 0.0-15.0 [facility] Comment on above: Result Comment: PERF ORMED BY: [place] [address] PATHOLOGIST MANAGER METAL GOSIA MCADAMS M.D. Performed By: #### H S TROP, HEPATIC, LIPASE, CBC, BMP #### [address] Troponin I.cardiac [Mass/vol ume] in Serum or Plasma by Detection limit <= 0.01 ng/Ordered By: Camacho Ladd on 08-05-2022 Troponin I.cardiac DL <= 0.0 1 ng/mL [Mass/Vol] 7.7 pg/mL 0.0-15.0 [facility] Urea nitrogen [Mass/volume] in Serum or PlasmaOrdered By: Camacho Ladd on 08-05-2022 Urea nitrogen [Mass/Vol] 12 mg/dL 7-25 [facility] Urine bacteria detection by automated methodOrdered By: Camacho Ladd on 08-05-2022 Bacteria Auto Ql (U) None seen None Seen [facility] Urine clarity by refractomet ry automatedOrdered By: Camacho Ladd on 08-05-2022 Clarity Refractometry automated (U) Cloudy Clear [facility] Urine glucose measurement by automated test strip (mass/volume)Ordered By: Camacho Ladd on 08-05-2022 Glucose Auto test strip (U) [Mass/Vol] Normal mg/dL Normal [facility] Urine hemoglobin detection b y automated test stripOrdered By: Camacho aLdd on 08-05-2022 Hemoglobin Auto test strip Ql (U) Negative Ne gative [facility] Urine leukocyte esterase det ection by automated test stripOrdered By: Camacho Ladd on 08-05-2022 Leukocyte esterase Auto test strip Ql (U) 1+ Negative [facility] Urobilinogen Auto test strip (U) [Mass/Vol]Ordered By: Camacho Ladd on 08-05-2022 Urobilinogen (U) [Mass/Vol] Normal mg/dL Normal [facility] WBC Auto (Bld) [#/Vol]Ordere d By: Camacho Ladd on 08-05-2022 WBC (Bld) [#/Vol] 14.2 10*3/uL 3.8-11.6 [facility] pH Auto test strip (U)Ordere d By: Camacho Ldad on 08-05-2022 pH (U) 7.0 [pH] 5.0-9.0 [facility] BNPon 06-13-2022 Natriuretic peptide B (Bld) [Mass/Vol] 142.0 pg/mL Normal <=1,800.0 [facility] Comment on above: Performed By: #### T SH, BMP #### [facility] [address] [place] [address] Dr. Tasha Dodson CBC AUTO DIFFon 06-13-2022 BASO # 0.1 103/ul Normal 0.0-0.1 [facility] ostal Comment on above: Performed By: #### T SH, BMP #### [facility] [address] [place] [address] Dr. Tasha Dodson Basophils/100 WBC (Bld) 1.0 % Normal 0.2-2.0 [facility] Comment on above: Performed By: #### T SH, BMP #### [facility] [address] [place] [address] Dr. Tasha Dodson EO # 0.3 103/ul Normal 0.0-0.7 [facility] Comment on above: Performed By: #### T SH, BMP #### [facility] [address] [place] [address] Dr. Tasha Dodson Eosinophils/100 WBC (Bld) 2.6 % Normal 0.9-7.0 [facility] Comment on above: Performed By: #### T SH, BMP #### [facility] [address] [place] [address] Dr. Tasha Dodson Erythrocyte distribution wid th (RBC) [Ratio] 13.4 % Normal 11.0-15.0 [facility] Comment on above: Performed By: #### T SH, BMP #### [facility] [address] [place] [address] Dr. Tasha Dodson Hematocrit (Bld) [Volume fraction] 39.5 % Normal 3 6.0-48.0 [facility] Comment on above: Performed By: #### T SH, BMP #### [facility] [address] [place] [address] Dr. Tasha Dodson Hemoglobin (Bld) [Mass/Vol] 13.1 g/dL Normal 12.0-16. 0 [facility] Comment on above: Performed By: #### T SH, BMP #### [facility] [address] [place] [address] Dr. Tasha Dodson IG # 0.07 10e3/ul Critically high 0.00-0.03 [facility] Comment on above: Performed By: #### T SH, BMP #### [facility] [address] [address] [address] Tasha Dodson IG % 0.6 % Critically high 0.0-0.5 [facility] Comment on above: Performed By: #### T SH, BMP #### [facility] [address] [place] [address] Dr. Tasha Dodson LYMPH # 2.5 103/ul Normal 1.2-3.8 [facility] Comment on above: Performed By: #### T SH, BMP #### [facility] [address] [place] [address] Dr. Tasha Dodson Lymphocytes/100 WBC (Bld) 22.9 % Normal 20.5-60.0 [facility] Comment on above: Performed By: #### T SH, BMP #### [facility] [address] [place] [address] Dr. Tasha Dodson MANUAL DIFF REQ NO Normal [facility] Comment on above: Performed By: #### T SH, BMP #### [facility] [address] [place] [address] Dr. Tasha Dodson MCH (RBC) [Entitic mass] 30.7 pg Normal 26.7-34.0 [facility] Comment on above: Performed By: #### T SH, BMP #### [facility] [address] [place] [address] Dr. Tasha Dodson MCHC (RBC) [Mass/Vol] 33.2 g/dL Normal 29.9-35.2 [facility] Comment on above: Performed By: #### T SH, BMP #### [facility] [address] [place] [address] Dr. Tasha Dodson MCV (RBC) [Entitic vol] 92.5 fL Normal 81.0-99.0 [facility] Comment on above: Performed By: #### T SH, BMP #### [facility] [address] [place] [address] Dr. Tasha Dodson MONO # 0.8 103/ul Normal 0.3-0.8 [facility] Comment on above: Performed By: #### T SH, BMP #### [facility] [address] [place] [address] Dr. Tasha Dodson Monocytes/100 WBC (Bld) 7.0 % Normal 1.7-12.0 [facility] Comment on above: Performed By: #### T SH, BMP #### [facility] [address] [place] [address] Dr. Tasha Dodson NEUT # 7.2 103/ul Critically high 1.4-6.5 [facility] Comment on above: Performed By: #### T SH, BMP #### [facility] [address] [place] [address] Dr. Tasha Dodson Neutrophils/100 WBC (Bld) 65.9 % Normal 43.0-75.0 [facility] Comment on above: Performed By: #### T SH, BMP #### [facility] [address] [place] [address] Dr. Tasha Dodson Platelet mean volume (Bld) [Entitic vol] 8.0 fL Critically low 9.5-13.5 [facility] Comment on above: Performed By: #### T SH, BMP #### [facility] [address] [place] [address] Dr. Tasha Dodson PLT 449 103/ul Normal 150-450 [facility] Comment on above: Performed By: #### T SH, BMP #### [facility] [address] [place] [address] Dr. Tasha Dodson RBC 4.27 106/ul Normal 4.20-5.40 [facility] Comment on above: Performed By: #### T SH, BMP #### [facility] [address] [place] [address] Dr. Tasha Dodson WBC 10.9 103/ul Normal 4.0-11.0 [facility] Comment on above: Performed By: #### T SH, BMP #### [facility] [address] [place] [address] Dr. Tasha Dodson FREE THYROXINE INDEX T7on FTI 3.67 Normal 1.30-4.50 [facility] Comment on above: Performed By: #### T SH, BMP #### [facility] [address] [place] [address] Dr. Tasha Dodson T3U 36.0 % Normal 30.0-39.0 [facility] Comment on above: Performed By: #### T SH, BMP #### [facility] [address] [place] [address] Dr. Tasha Dodson T4 [Mass/Vol] 10.20 ug/dL Normal 4.80-13.90 [facility] Comment on above: Performed By: #### T JESI, BMP #### [facility] [address] [place] [address] Dr. Tasha Dodson PROF CHEM 8 (BAS METB)on Anion gap [Moles/Vol] 13.8 mmol/L Normal [facility] Comment on above: Performed By: #### T SH, BMP #### [facility] [address] [place] [address] Dr. Tasha Dodson Calcium [Mass/Vol] 9.8 mg/dL Normal 8.5-10.1 [facility] Comment on above: Performed By: #### T SH, BMP #### [facility] [address] [place] [address] Dr. Tasha Dodson Chloride [Moles/Vol] 95 mmol/L Critically low 98-107 [facility] Comment on above: Performed By: #### T SH, BMP #### [facility] [address] [place] [address] Dr. Tasha Dodson CO2 [Moles/Vol] 30.5 mmol/L Normal 21.0-32.0 [facility] Comment on above: Performed By: #### T SH, BMP #### [facility] [address] [address] [address] Tasha Dodson Creatinine [Mass/Vol] 0.78 mg/dL Normal 0.55-1.02 [facility] Comment on above: Performed By: #### T SH, BMP #### [facility] [address] [address] [address] Tasha Dodson EGFR-AF SAMOAN >60 Normal >=60 [facility] Comment on above: Performed By: #### T SH, BMP #### [facility] [address] [address] [address] Tasha Dodson EGFR-NON AF SAMOAN >60 Normal >=60 [facility] Comment on above: Performed By: #### T SH, BMP #### [facility] [address] [place] [address] Dr. Tasha Dodson Glucose [Mass/Vol] 108 mg/dL Critically high 74-106 [facility] Comment on above: Performed By: #### T SH, BMP #### [facility] [address] [place] [address] Dr. Tasha Dodson Potassium [Moles/Vol] 3.3 mmol/L Critically low 3.5-5.1 [facility] Comment on above: Performed By: #### T SH, BMP #### [facility] [address] [place] [address] Dr. Tasha Ddoson Sodium [Moles/Vol] 136 mmol/L Normal 136-145 [facility] Comment on above: Performed By: #### T SH, BMP #### [facility] [address] [address] [address] Tasha Dodson Urea nitrogen [Mass/Vol] 11.0 mg/dL Normal 7.0-18.0 [facility] Comment on above: Performed By: #### T SH, BMP #### [facility] [address] [address] [address] Tasha Dodson Urea nitrogen/Creatinine [Mass ratio] 14.1 mg/mg Normal [facility] Comment on above: Performed By: #### T SH, BMP #### [facility] [address] [place] [address] Dr. Tasha Dodson TSHon 06-13-2022 TSH 2.583 uIU/mL Normal 0.358-3.740 [facility] Comment on above: Performed By: #### T SH, BMP #### [facility] [address] [place] [address] Dr. Tasha Dodson UA (CLEAN/CATCH) FIRMWARE SOFTWARE VERIFICATION ENGINEER/MICRO I F IND.on 06-13-2022 Bilirubin Ql (U) Negative Normal NEGATIVE [facility] Comment on above: Performed By: #### T SH, BMP #### [facility] [address] [place] [address] Dr. Tasha Dodson Clarity (U) CLEAR Normal CLEAR [facility] Comment on above: Performed By: #### T SH, BMP #### [facility] [address] [place] [address] Dr. Tasha Dodson Color (U) LT. YELLOW Normal YELLOW [facility] Comment on above: Performed By: #### T SH, BMP #### [facility] [address] [place] [address] Dr. Tasha Dodson Glucose Ql (U) Negative Normal NEGATIVE [facility] Comment on above: Performed By: #### T SH, BMP #### [facility] [address] [place] [address] Dr. Tasha Dodson Hemoglobin Ql (U) Negative Normal NEGATIVE [facility] Comment on above: Performed By: #### T SH, BMP #### [facility] [address] [place] [address] Dr. Tasha Dodson Ketones Ql (U) Negative Normal NEGATIVE [facility] Comment on above: Performed By: #### T SH, BMP #### [facility] [address] [place] [address] Dr. Tasha Dodson LEUKOCYTES Negative Normal NEGATIVE [facility] Comment on above: Performed By: #### T SH, BMP #### [facility] [address] [place] [address] Dr. Tasha Dodson Nitrite Ql (U) Negative Normal NEGATIVE [facility] Comment on above: Performed By: #### T SH, BMP #### [facility] [address] [address] [address] Tasha Dodson pH (U) 7.0 [pH] Normal 5-9 [facility] Comment on above: Performed By: #### T SH, BMP #### [facility] [address] [place] [address] Dr. Tasha Dodson SPEC GRAVITY 1.010 Normal 1.005-<=1.025 [facility] Comment on above: Performed By: #### T SH, BMP #### [facility] [address] [place] [address] Dr. Tasha Dodson UA PROTEIN Negative Normal NEGATIVE/ TRACE [facility] Comment on above: Performed By: #### T SH, BMP #### [facility] [address] [place] [address] Dr. Tasha Dodson UR MICRO IND NOT INDICATED Normal [facility] Comment on above: Performed By: #### T SH, BMP #### [facility] [address] [place] [address] Dr. Tasha Dodson Urobilinogen Qn (U) 0.2 {Juan'U}/dL Normal 0.2 - 1. 0 [facility] Comment on above: Performed By: #### T SH, BMP #### [facility] [address] [place] [address] Dr. Tasha Dodson ECHOCARDIO M/2D COMPLETEon 0 04-18-2022 ECHOCARDIO M/2D COMPLETE Patient: HIRAM MADRID Exam Date: 04/18/2022 : 1935 Gender:F Ordering : DR VALERIE DARDEN M.D. Admission #: [id number] Family : DR ADDY DANIELS . Order #: [id number] CLICK HERE TO VIEW EXAM ECHOCARDIOGRAM REPORT PROCEDURE: CARDIO PULMONARY ECHOCARDIO M/2D COMP INDICATIONS: Mitral valve stenosis, aortic valve stenosis, hypertension COMPARISON: None. DESCRIPTION: COMPLETE ECHOCARDIOGRAM Real-time transthoracic echocardiography with 2D, M-mode, spectral and color flow Doppler performed. QUALITY: Technical quality was good. LEFT VENTRICLE: Normal chamber size. Proximal septal hypertrophy (sigmoid septum). Normal systolic function. LV EF: Normal left ventricular ejection fraction, (>55%). DIASTOLIC: Grade II diastolic dysfunction. ATRIAL SEPTUM: Visually appears intact. LEFT ATRIUM: Moderately dilated. RIGHT ATRIUM: Moderately dilated. RIGHT VENTRICLE: Normal chamber size. Normal right ventricular systolic function. TRICUSPID VALVE: Normal mobility and thickness. No stenosis with mild regurgitation. No evidence of pulmonary hypertension. RVSP is 32 mmHg MITRAL VALVE: Mildly thickened with decreased mobility. No significant mitral valve stenosis. Moderate mitral annular calcification. Mild mitral regurgitation. Mean gradient 2.2 mmHg AORTIC VALVE: Normal trileaflet appearance. Moderately calcified aortic valve. Mildly diminished mobility. Doppler velocity suggests mild aortic valve stenosis [mean gradient 12 mmHg, peak velocity 2.4 m/s]. Mild aortic regurgitation. AORTIC ROOT: Normal diameter and appearance. PULMONIC VALVE: Normal thickness and mobility. No stenosis. Mild regurgitation. PERICARDIUM: No evidence of pericardial effusion. IVC: Collapses with inspirations. PLEURA: CONCLUSION: 1. Normal ventricular systolic function. LVEF is 60%. 2. Grade 2 diastolic function. 3. Moderate biatrial dilatation. 4. Mild aortic, mitral tricuspid and pulmonic regurgitation. 5. Calcified aortic valve with mild stenosis. 6. Normal right-sided pressures. Adult Echocardiography Procedure Report Left Ventricle LVEDD (3.7 - 5.6 cm): 4.66 cm LVESD (2.2 - 4.0 cm): 2.67 cm LVIVS thickness (0.6 - 1.2 cm): 1.62 cm LVPW thickness (0.5 - 1.0 cm): 0.86 cm e': 0.04 m/s E - e': 20.91 LVOT Max Gradient: 6.69 mm[Hg] Peak Velocity (LVOT): 1.29 m/s Mean Velocity (LVOT): 0.95 m/s LVOT Diameter 1.81 cm Left Ventricular Ejection Fraction: 60% Left Atrium LA Volume Index (2D A2C): 53.29 ml, 53.29 ml Left Atrium Systolic Dimension: 3.24 cm Mitral Valve MV E to A Ratio: 0.81 Mitral Valve A-Wave Peak Velocity: 1.11 m/s Mitral Valve E-Wave Peak Velocity: 0.90 m/s Right Ventricle Aorta AO Root Diam: 3.04 cm Aortic Valve AoV Area (Peak Rodo): 1.44 cm2, 1.39 cm2 AoV Area (VTI): 1.60 cm2, 1.61 cm2 Peak Velocity(Antegrade Flow): 2.39 m/s, 2.23 m/s Peak Gradient(Antegrade Flow): 22.89 mm[Hg], 19.88 mm[Hg] Mean Velocity(Antegrade Flow): 1.61 m/s, 1.53 m/s Mean Gradient(Antegrade Flow): 11.74 mm[Hg], 10.65 mm[Hg] Velocity Time Integral: 52.55 cm, 53.44 cm Tricuspid Valve Peak Velocity (Regurgitant Flow): 2.66 m/s, 2.71 m/s, 2.29 m/s Peak Velocity: 0.41 m/s Pulmonic Valve Peak Velocity: 1.03 m/s, 0.96 m/s Peak Gradient: 4.27 mm[Hg], 3.72 mm[Hg] Right Atrium Right Atrium Systolic Pressure: 37.89 ml, 37.89 ml Dictated by: Kelechi Barragan M.D. on 04/19/2022 at 18:46 Approved by: Kelechi Barragan M.D. on 04/19/2022 at 18:55 Normal [facility] Office Visiton 04-04-2022 Follow-up visit [id number] Treva Madrid 1935 F Date Provider Department Center 04/04/2022 [address]SO, VALERIE [facility] Family History Problem Relation Age of Onset Hypertension Mother Lupus Mother Coronary artery disease Mother Heart attack Mother Hypertension Father Aneurysm Father Coronary artery disease Father Hypertension Sister Lupus Sister Family Status - Relation Status Age at Mother Father Sister Level of Service:42426 MO OFFICE/OUTPATIENT ESTABLISHED MOD MDM 30-39 MIN Reason for Visit and Comments: Hyperlipidemia [182] Hypertension [455477] carotid artery stenosis [Other] 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 Tasha Dodson Basophils/100 WBC (Bld) 0.6 % Normal 0.2-2.0 [facility] Comment on above: Performed By: #### C BC #### [facility] [address] [place] [address] Dr. Tasha Dodson EO # 0.1 103/ul Normal 0.0-0.7 [facility] Comment on above: Performed By: #### C BC #### [facility] [address] [place] [address] Dr. Tasha Dodson Eosinophils/100 WBC (Bld) 0.9 % Normal 0.9-7.0 [facility] Comment on above: Performed By: #### C BC #### [facility] [address] [place] [address] Dr. Tasha Dodson Erythrocyte distribution wid th (RBC) [Ratio] 13.0 % Normal 11.0-15.0 [facility] Comment on above: Performed By: #### C BC #### [facility] [address] [place] [address] Dr. Tasha Dodson Hematocrit (Bld) [Volume fraction] 38.5 % Normal 3 6.0-48.0 [facility] Comment on above: Performed By: #### C BC #### [facility] [address] [place] [address] Dr. Tasha Dodson Hemoglobin (Bld) [Mass/Vol] 13.4 g/dL Normal 12.0-16. 0 [facility] Comment on above: Performed By: #### C BC #### [facility] [address] [place] [address] Dr. Tasha Dodson IG # 0.07 10e3/ul Critically high 0.00-0.03 [facility] Comment on above: Performed By: #### C BC #### [facility] [address] [place] [address] Dr. Tasha Dodson IG % 0.5 % Normal 0.0-0.5 [facility] Comment on above: Performed By: #### C BC #### [facility] [address] [address] [address] Tasha Dodson LYMPH # 2.8 103/ul Normal 1.2-3.8 [facility] Comment on above: Performed By: #### C BC #### [facility] [address] [place] [address] Dr. Tasha Dodson Lymphocytes/100 WBC (Bld) 20.5 % Normal 20.5-60.0 [facility] Comment on above: Performed By: #### C BC #### [facility] [address] [place] [address] Dr. Tasha Dodson MANUAL DIFF REQ NO Normal [facility] Comment on above: Performed By: #### C BC #### [facility] [address] [place] [address] Dr. Tasha Dodson MCH (RBC) [Entitic mass] 30.7 pg Normal 26.7-34.0 [facility] Comment on above: Performed By: #### C BC #### [facility] [address] [place] [address] Dr. Tasha Dodson MCHC (RBC) [Mass/Vol] 34.8 g/dL Normal 29.9-35.2 [facility] Comment on above: Performed By: #### C BC #### [facility] [address] [place] [address] Dr. Tasha Dodson MCV (RBC) [Entitic vol] 88.3 fL Normal 81.0-99.0 [facility] Comment on above: Performed By: #### C BC #### [facility] [address] [place] [address] Dr. Tasha Dodson MONO # 1.0 103/ul Critically high 0.3-0.8 [facility] Comment on above: Performed By: #### C BC #### [facility] [address] [place] [address] Dr. Tasha Dodson Monocytes/100 WBC (Bld) 7.4 % Normal 1.7-12.0 [facility] Comment on above: Performed By: #### C BC #### [facility] [address] [address] [address] Tasha Dodson NEUT # 9.5 103/ul Critically high 1.4-6.5 [facility] Comment on above: Performed By: #### C BC #### [facility] [address] [address] [address] Tasha Dodson Neutrophils/100 WBC (Bld) 70.1 % Normal 43.0-75.0 [facility] Comment on above: Performed By: #### C BC #### [facility] [address] [address] [address] Tasha Dodson Platelet mean volume (Bld) [Entitic vol] 8.0 fL Critically low 9.5-13.5 [facility] Comment on above: Performed By: #### C BC #### [facility] [address] [place] [address] Dr. Tasha Dodson PLT 492 103/ul Critically high 150-450 [facility] Comment on above: Performed By: #### C BC #### [facility] [address] [place] [address] Dr. Tasha Dodson RBC 4.36 106/ul Normal 4.20-5.40 [facility] Comment on above: Performed By: #### C BC #### [facility] [address] [place] [address] Dr. Tasha Dodson WBC 13.5 103/ul Critically high 4.0-11.0 [facility] Comment on above: Performed By: #### C BC #### [facility] [address] [place] [address] Dr. Tasha Dodson PROF 14(COMP METB)on 01-04- 022 Albumin [Mass/Vol] 3.8 g/dL Normal 3.4-5.0 [facility] Comment on above: Performed By: #### T JESI, BMP #### [facility] [address] [place] [address] Dr. Tasha Dodson Albumin/Globulin [Mass ratio] 0.9 {ratio} Normal [facility] Comment on above: Performed By: #### T JESI, BMP #### [facility] [address] [address] [address] Tasha Dodson ALP [Catalytic activity/Vol] 60 U/L Normal 46-116 [facility] Comment on above: Performed By: #### T SH, BMP #### [facility] [address] [address] [address] Tasha Dodson ALT [Catalytic activity/Vol] 26 U/L Normal 14-59 [facility] Comment on above: Performed By: #### T SH, BMP #### [facility] [address] [address] [address] Tasha Dodson Anion gap [Moles/Vol] 8.4 mmol/L Normal [facility] Comment on above: Performed By: #### T SH, BMP #### [facility] [address] [place] [address] Dr. Tasha Dodson AST [Catalytic activity/Vol] 19 U/L Normal 15-37 [facility] Comment on above: Performed By: #### T SH, BMP #### [facility] [address] [place] [address] Dr. Tasha Dodson Bilirubin [Mass/Vol] 0.4 mg/dL Normal 0.2-1.0 [facility] Comment on above: Performed By: #### T SH, BMP #### [facility] [address] [place] [address] Dr. Tasha Dodson Calcium [Mass/Vol] 10.1 mg/dL Normal 8.5-10.1 [facility] Comment on above: Performed By: #### T SH, BMP #### [facility] [address] [place] [address] Dr. Tasha Dodson Chloride [Moles/Vol] 92 mmol/L Critically low 98-107 [facility] Comment on above: Performed By: #### T SH, BMP #### [facility] [address] [place] [address] Dr. Tasha Dodson CO2 [Moles/Vol] 33.8 mmol/L Critically high 21.0-32.0 [facility] Comment on above: Performed By: #### T SH, BMP #### [facility] [address] [place] [address] Dr. Tasha Dodson Creatinine [Mass/Vol] 0.67 mg/dL Normal 0.55-1.02 [facility] Comment on above: Performed By: #### T SH, BMP #### [facility] [address] [address] [address] Tasha Dodson EGFR-AF SAMOAN >60 Normal >=60 [facility] Comment on above: Performed By: #### T SH, BMP #### [facility] [address] [address] [address] Tasha Dodson EGFR-NON AF SAMOAN >60 Normal >=60 [facility] Comment on above: Performed By: #### T SH, BMP #### [facility] [address] [place] [address] Dr. Tasha Dodson Globulin (S) [Mass/Vol] 4.1 g/dL Normal [facility] Comment on above: Performed By: #### T SH, BMP #### [facility] [address] [place] [address] Dr. Tasha Dodson Glucose [Mass/Vol] 106 mg/dL Normal 74-106 [facility] Comment on above: Performed By: #### T SH, BMP #### [facility] [address] [place] [address] Dr. Tasha Dodson Potassium [Moles/Vol] 3.2 mmol/L Critically low 3.5-5.1 [facility] Comment on above: Performed By: #### T SH, BMP #### [facility] [address] [place] [address] Dr. Tasha Dodson Protein [Mass/Vol] 7.9 g/dL Normal 6.4-8.[address] [facility] Comment on above: Performed By: #### T SH, BMP #### [facility] [address] [place] [address] Dr. Tasha Dodson Sodium [Moles/Vol] 131 mmol/L Critically low 136-145 [facility] Comment on above: Performed By: #### T SH, BMP #### [facility] [address] [place] [address] Dr. Tasha Dodson Urea nitrogen [Mass/Vol] 10.0 mg/dL Normal 7.0-18.0 [facility] Comment on above: Performed By: #### T SH, BMP #### [facility] [address] [place] [address] Dr. Tasha Dodson Urea nitrogen/Creatinine [Mass ratio] 14.9 mg/mg Normal [facility] Comment on above: Performed By: #### T SH, BMP #### [facility] [address] [place] [address] Dr. Tasha Dodson CBC AUTO DIFFon 12-29-2021 BASO # 0.1 103/ul Normal 0.0-0.1 [facility] Comment on above: Performed By: #### C BC #### [facility] [address] [place] [address] Dr. Tasha Dodson Basophils/100 WBC (Bld) 0.5 % Normal 0.2-2.0 [facility] Comment on above: Performed By: #### C BC #### [facility] [address] [place] [address] Dr. Tasha Dodson EO # 0.1 103/ul Normal 0.0-0.7 [facility] Comment on above: Performed By: #### C BC #### [facility] [address] [place] [address] Dr. Tasha Dodson Eosinophils/100 WBC (Bld) 0.4 % Critically low 0.9-7. 0 [facility] Comment on above: Performed By: #### C BC #### [facility] [address] [place] [address] Dr. Tasha Dodson Erythrocyte distribution wid th (RBC) [Ratio] 13.0 % Normal 11.0-15.0 [facility] Comment on above: Performed By: #### C BC #### [facility] [address] [place] [address] Dr. Tasha Dodson Hematocrit (Bld) [Volume fraction] 34.0 % Critically low 36.0-48.0 [facility] Comment on above: Performed By: #### C BC #### [facility] [address] [address] [address] Tasha Dodson Hemoglobin (Bld) [Mass/Vol] 12.0 g/dL Normal 12.0-16. 0 [facility] Comment on above: Performed By: #### C BC #### [facility] [address] [address] [address] Tasha Dodson IG # 0.06 10e3/ul Critically high 0.00-0.03 [facility] Comment on above: Performed By: #### C BC #### [facility] [address] [place] [address] Dr. Tasha Dodson IG % 0.4 % Normal 0.0-0.5 [facility] Comment on above: Performed By: #### C BC #### [facility] [address] [place] [address] Dr. Tasha Dodson LYMPH # 2.5 103/ul Normal 1.2-3.8 [facility] Comment on above: Performed By: #### C BC #### [facility] [address] [place] [address] Dr. Tasha Dodson Lymphocytes/100 WBC (Bld) 17.4 % Critically low 20.5-6 0.0 [facility] Comment on above: Performed By: #### C BC #### [facility] [address] [place] [address] Dr. Tasha Dodson MANUAL DIFF REQ NO Normal [facility] Comment on above: Performed By: #### C BC #### [facility] [address] [place] [address] Dr. Tasha Dodson MCH (RBC) [Entitic mass] 31.0 pg Normal 26.7-34.0 [facility] Comment on above: Performed By: #### C BC #### [facility] [address] [place] [address] Dr. Tasha Dodson MCHC (RBC) [Mass/Vol] 35.3 g/dL Critically high 29.9-35.2 [facility] Comment on above: Performed By: #### C BC #### [facility] [address] [address] [address] Tasha Dodson MCV (RBC) [Entitic vol] 87.9 fL Normal 81.0-99.0 [facility] Comment on above: Performed By: #### C BC #### [facility] [address] [address] [address] Tasha Dodson MONO # 1.0 103/ul Critically high 0.3-0.8 [facility] Comment on above: Performed By: #### C BC #### [facility] [address] [address] [address] Tasha Dodson Monocytes/100 WBC (Bld) 6.9 % Normal 1.7-12.0 [facility] Comment on above: Performed By: #### C BC #### [facility] [address] [address] [address] Tasha Dodson NEUT # 10.8 103/ul Critically high 1.4-6.5 [facility] Comment on above: Performed By: #### C BC #### [facility] [address] [address] [address] Tasha Dodson Neutrophils/100 WBC (Bld) 74.4 % Normal 43.0-75.0 [facility] Comment on above: Performed By: #### C BC #### [facility] [address] [address] [address] Tasha Dodson Platelet mean volume (Bld) [Entitic vol] 8.4 fL Critically low 9.5-13.5 [facility]ital Comment on above: Performed By: #### C BC #### [facility] [address] [address] [address] Tasha Dodson PLT 370 103/ul Normal 150-450 [facility] Comment on above: Performed By: #### C BC #### [facility] [address] [address] [address] Tasha Dodson RBC 3.87 106/ul Critically low 4.20-5.40 [facility] Comment on above: Performed By: #### C BC #### [facility] [address] [address] [address] Tasha Dodson WBC 14.5 103/ul Critically high 4.0-11.0 [facility] Comment on above: Performed By: #### C BC #### [facility] [address] [place] [address] Dr. Tasha Dodson PROF 14(COMP METB)on 022 Albumin [Mass/Vol] 2.8 g/dL Critically low 3.4-5.0 [facility] Comment on above: Performed By: #### T SH, BMP #### [facility] [address] [place] [address] Dr. Tasha Dodson Albumin/Globulin [Mass ratio] 0.9 {ratio} Normal [facility] Comment on above: Performed By: #### T SH, BMP #### [facility] [address] [place] [address] Dr. Tasha Dodson ALP [Catalytic activity/Vol] 51 U/L Normal 46-116 [facility] Comment on above: Performed By: #### T SH, BMP #### [facility] [address] [place] [address] Dr. Tasha Dodson ALT [Catalytic activity/Vol] 15 U/L Normal 14-59 [facility] Comment on above: Performed By: #### T SH, BMP #### [facility] [address] [place] [address] Dr. Tasha Dodson Anion gap [Moles/Vol] 9.7 mmol/L Normal [facility] Comment on above: Performed By: #### T SH, BMP #### [facility] [address] [place] [address] Dr. Tasha Dodson AST [Catalytic activity/Vol] 15 U/L Normal 15-37 [facility] Comment on above: Performed By: #### T SH, BMP #### [facility] [address] [place] [address] Dr. Tasha Dodson Bilirubin [Mass/Vol] 0.4 mg/dL Normal 0.2-1.0 [facility] Comment on above: Performed By: #### T SH, BMP #### [facility] [address] [address] [address] Tasha Dodson Calcium [Mass/Vol] 8.6 mg/dL Normal 8.5-10.1 [facility] Comment on above: Performed By: #### T SH, BMP #### [facility] [address] [address] [address] Tasha Dodson Chloride [Moles/Vol] 97 mmol/L Critically low 98-107 [facility] Comment on above: Performed By: #### T SH, BMP #### [facility] [address] [place] [address] Dr. Tasha Dodson CO2 [Moles/Vol] 25.8 mmol/L Normal 21.0-32.0 [facility] Comment on above: Performed By: #### T SH, BMP #### [facility] [address] [place] [address] Dr. Tasha Dodson Creatinine [Mass/Vol] 0.52 mg/dL Critically low 0.55-1.02 [facility] Comment on above: Performed By: #### T SH, BMP #### [facility] [address] [place] [address] Dr. Tasha Dodson EGFR-AF SAMOAN >60 Normal >=60 [facility] Comment on above: Performed By: #### T SH, BMP #### [facility] [address] [place] [address] Dr. Tasha oDdson EGFR-NON AF SAMOAN >60 Normal >=60 [facility] Comment on above: Performed By: #### T SH, BMP #### [facility] [address] [place] [address] Dr. Tasha Dodson Globulin (S) [Mass/Vol] 3.2 g/dL Normal [facility] Comment on above: Performed By: #### T SH, BMP #### [facility] [address] [place] [address] Dr. Tasha Dodson Glucose [Mass/Vol] 117 mg/dL Critically high 74-106 [facility] Comment on above: Performed By: #### T SH, BMP #### [facility] [address] [place] [address] Dr. Tasha Dodson Potassium [Moles/Vol] 3.5 mmol/L Normal 3.5-5.1 [facility] Comment on above: Performed By: #### T SH, BMP #### [facility] [address] [place] [address] Dr. Tasha Dosdon Protein [Mass/Vol] 6.0 g/dL Critically low 6.4-8.2 [facility] Comment on above: Performed By: #### T SH, BMP #### [facility] [address] [place] [address] Dr. Tasha Dodson Sodium [Moles/Vol] 129 mmol/L Critically low 136-145 [facility] Comment on above: Performed By: #### T SH, BMP #### [facility] [address] [place] [address] Dr. Tasha Dodson Urea nitrogen [Mass/Vol] 4.0 mg/dL Critically low 7.0-18. 0 [facility] Comment on above: Performed By: #### T SH, BMP #### [facility] [address] [place] [address] Dr. Tasha Dodson Urea nitrogen/Creatinine [Mass ratio] 7.7 mg/mg Normal [facility] Comment on above: Performed By: #### T SH, BMP #### [facility] [address] [place] [address] Dr. Tasha Dodson CBC AUTO DIFFon 12-28-2021 BASO # 0.1 103/ul Normal 0.0-0.1 [facility] Comment on above: Performed By: #### C BC #### [facility] [address] [place] [address] Dr. Tasha Dodson Basophils/100 WBC (Bld) 0.4 % Normal 0.2-2.0 [facility] Comment on above: Performed By: #### C BC #### [facility] [address] [place] [address] Dr. Tasha Dodson EO # 0.1 103/ul Normal 0.0-0.7 [facility] Comment on above: Performed By: #### C BC #### [facility] [address] [place] [address] Dr. Tasha Dodson Eosinophils/100 WBC (Bld) 0.4 % Critically low 0.9-7. 0 [facility] Comment on above: Performed By: #### C BC #### [facility] [address] [place] [address] Dr. Tasha Dodson Erythrocyte distribution wid th (RBC) [Ratio] 12.9 % Normal 11.0-15.0 [facility] Comment on above: Performed By: #### C BC #### [facility] [address] [place] [address] Dr. Tasha Dodson Hematocrit (Bld) [Volume fraction] 34.2 % Critically low 36.0-48.0 [facility] Comment on above: Performed By: #### C BC #### [facility] [address] [place] [address] Dr. Tasha Dodson Hemoglobin (Bld) [Mass/Vol] 12.4 g/dL Normal 12.0-16. 0 [facility] Comment on above: Performed By: #### C BC #### [facility] [address] [place] [address] Dr. Tasha Dodson IG # 0.09 10e3/ul Critically high 0.00-0.03 [facility] Comment on above: Performed By: #### C BC #### [facility] [address] [place] [address] Dr. Tasha Dodson IG % 0.6 % Critically high 0.0-0.5 [facility] Comment on above: Performed By: #### C BC #### [facility] [address] [place] [address] Dr. Tasha Dodson LYMPH # 2.2 103/ul Normal 1.2-3.8 [facility] Comment on above: Performed By: #### C BC #### [facility] [address] [place] [address] Dr. Tasha Dodson Lymphocytes/100 WBC (Bld) 13.6 % Critically low 20.5-6 0.0 [facility] Comment on above: Performed By: #### C BC #### [facility] [address] [place] [address] Dr. Tasha Dodson MANUAL DIFF REQ NO Normal [facility] Comment on above: Performed By: #### C BC #### [facility] [address] [place] [address] Dr. Tasha Dodson MCH (RBC) [Entitic mass] 31.2 pg Normal 26.7-34.0 [facility] Comment on above: Performed By: #### C BC #### [facility] [address] [place] [address] Dr. Tasha Dodson MCHC (RBC) [Mass/Vol] 36.3 g/dL Critically high 29.9-35.2 [facility] Comment on above: Performed By: #### C BC #### [facility] [address] [place] [address] Dr. Tasha Dodson MCV (RBC) [Entitic vol] 85.9 fL Normal 81.0-99.0 [facility] Comment on above: Performed By: #### C BC #### [facility] [address] [place] [address] Dr. Tasha Dodson MONO # 1.3 103/ul Critically high 0.3-0.8 [facility] Comment on above: Performed By: #### C BC #### [facility] [address] [place] [address] Dr. Tasha Dodson Monocytes/100 WBC (Bld) 7.8 % Normal 1.7-12.0 [facility] Comment on above: Performed By: #### C BC #### [facility] [address] [place] [address] Dr. Tasha Dodson NEUT # 12.4 103/ul Critically high 1.4-6.5 [facility] Comment on above: Performed By: #### C BC #### [facility] [address] [place] [address] Dr. Tasha Dodson Neutrophils/100 WBC (Bld) 77.2 % Critically high 43.0- 75.0 [facility] Comment on above: Performed By: #### C BC #### [facility] [address] [place] [address] Dr. Tasha Dodson Platelet mean volume (Bld) [Entitic vol] 8.6 fL Critically low 9.5-13.5 [facility] Comment on above: Performed By: #### C BC #### [facility] [address] [place] [address] Dr. Tasha Dodson PLT 385 103/ul Normal 150-450 [facility] Comment on above: Performed By: #### C BC #### [facility] [address] [place] [address] Dr. Tasha Dodson RBC 3.98 106/ul Critically low 4.20-5.40 [facility] Comment on above: Performed By: #### C BC #### [facility] [address] [place] [address] Dr. Tasha Dodson WBC 16.1 103/ul Critically high 4.0-11.0 [facility] Comment on above: Performed By: #### C BC #### [facility] [address] [place] [address] Dr. Tasha Dodson PROF 14(COMP METB)on 022 Albumin [Mass/Vol] 3.2 g/dL Critically low 3.4-5.0 [facility] Comment on above: Performed By: #### T SH, BMP #### [facility] [address] [place] [address] Dr. Tasha Dodson Albumin/Globulin [Mass ratio] 1.0 {ratio} Normal [facility] Comment on above: Performed By: #### T JESI, BMP #### [facility] [address] [place] [address] Dr. Tasha Dodson ALP [Catalytic activity/Vol] 51 U/L Normal 46-116 [facility] Comment on above: Performed By: #### T JESI, BMP #### [facility] [address] [place] [address] Dr. Tasha Dodson ALT [Catalytic activity/Vol] 17 U/L Normal 14-59 [facility] Comment on above: Performed By: #### T SH, BMP #### [facility] [address] [place] [address] Dr. Tasha Dodson Anion gap [Moles/Vol] 10.5 mmol/L Normal [facility] Comment on above: Performed By: #### T SH, BMP #### [facility] [address] [place] [address] Dr. Tasha Dodson AST [Catalytic activity/Vol] 18 U/L Normal 15-37 [facility] Comment on above: Performed By: #### T JESI, BMP #### [facility] [address] [place] [address] Dr. Tasha Dodson Bilirubin [Mass/Vol] 0.4 mg/dL Normal 0.2-1.0 [facility] Comment on above: Performed By: #### T JESI, BMP #### [facility] [address] [place] [address] Dr. Tasha Dodson Calcium [Mass/Vol] 8.3 mg/dL Critically low 8.5-10.1 [facility] Comment on above: Performed By: #### T JESI, BMP #### [facility] [address] [place] [address] Dr. Tasha Dodson Chloride [Moles/Vol] 96 mmol/L Critically low 98-107 [facility] Comment on above: Performed By: #### T JESI, BMP #### [facility] [address] [place] [address] Dr. Tasha Dodson CO2 [Moles/Vol] 24.5 mmol/L Normal 21.0-32.0 [facility] Comment on above: Performed By: #### T JESI, BMP #### [facility] [address] [place] [address] Dr. Tasha Dodson Creatinine [Mass/Vol] 0.54 mg/dL Critically low 0.55-1.02 [facility] Comment on above: Performed By: #### T JESI, BMP #### [facility] [address] [address] [address] Tasha Dodson EGFR-AF SAMOAN >60 Normal >=60 [facility] Comment on above: Performed By: #### T SH, BMP #### [facility] [address] [address] [address] Tasha Dodson EGFR-NON AF SAMOAN >60 Normal >=60 [facility] Comment on above: Performed By: #### T SH, BMP #### [facility] [address] [address] [address] Tasha Dodson Globulin (S) [Mass/Vol] 3.1 g/dL Normal [facility] Comment on above: Performed By: #### T SH, BMP #### [facility] [address] [place] [address] Dr. Tasha Dodson Glucose [Mass/Vol] 123 mg/dL Critically high 74-106 [facility] Comment on above: Performed By: #### T SH, BMP #### [facility] [address] [place] [address] Dr. Tasha Dodson Potassium [Moles/Vol] 3.0 mmol/L Critically low 3.5-5.1 [facility] Comment on above: Performed By: #### T SH, BMP #### [facility] [address] [place] [address] Dr. Tasha Dodson Protein [Mass/Vol] 6.3 g/dL Critically low 6.4-8.2 Th [facility] Comment on above: Performed By: #### T SH, BMP #### [facility] [address] [place] [address] Dr. Tasha Dodson Sodium [Moles/Vol] 128 mmol/L Critically low 136-145 Th [facility] Comment on above: Performed By: #### T SH, BMP #### [facility] [address] [place] [address] Dr. Tasha Dodson Urea nitrogen [Mass/Vol] 5.0 mg/dL Critically low 7.0-18. 0 [facility] Comment on above: Performed By: #### T SH, BMP #### [facility] [address] [place] [address] Dr. Tasha Dodson Urea nitrogen/Creatinine [Mass ratio] 9.3 mg/mg Normal [facility] Comment on above: Performed By: #### T SH, BMP #### [facility] [address] [place] [address] Dr. Tasha Dodson SODIUM RANDOM URINEon 2021 Sodium (U) [Moles/Vol] 135 mmol/L Critically high 30-90 [facility] Comment on above: Performed By: #### C BC #### [facility] [address] [place] [address] Dr. Tasha Dodson CBC AUTO DIFFon 12-27-2021 BASO # 0.0 103/ul Normal 0.0-0.1 [facility] Comment on above: Performed By: #### C BC #### [facility] [address] [place] [address] Dr. Tasha Dodson Basophils/100 WBC (Bld) 0.2 % Normal 0.2-2.0 [facility] Comment on above: Performed By: #### C BC #### [facility] [address] [place] [address] Dr. Tasha Dodson EO # 0.3 103/ul Normal 0.0-0.7 [facility] Comment on above: Performed By: #### C BC #### [facility] [address] [place] [address] Dr. Tasha Dodson Eosinophils/100 WBC (Bld) 2.3 % Normal 0.9-7.0 [facility] Comment on above: Performed By: #### C BC #### [facility] [address] [place] [address] Dr. Tasha Dodson Erythrocyte distribution wid th (RBC) [Ratio] 12.4 % Normal 11.0-15.0 [facility] Comment on above: Performed By: #### C BC #### [facility] [address] [place] [address] Dr. Tasha Dodson Hematocrit (Bld) [Volume fraction] 35.4 % Critically low 36.0-48.0 [facility] Comment on above: Performed By: #### C BC #### [facility] [address] [address] [address] Tasha Dodson Hemoglobin (Bld) [Mass/Vol] 12.9 g/dL Normal 12.0-16. 0 [facility] Comment on above: Performed By: #### C BC #### [facility] [address] [address] [address] Tasha Dodson IG # 0.06 10e3/ul Critically high 0.00-0.03 [facility] Comment on above: Performed By: #### C BC #### [facility] [address] [address] [address] Tasha Dodson IG % 0.5 % Normal 0.0-0.5 [facility] Comment on above: Performed By: #### C BC #### [facility] [address] [place] [address] Dr. Tasha Dodson LYMPH # 2.0 103/ul Normal 1.2-3.8 [facility] Comment on above: Performed By: #### C BC #### [facility] [address] [place] [address] Dr. Tasha Dodson Lymphocytes/100 WBC (Bld) 15.7 % Critically low 20.5-6 0.0 [facility] Comment on above: Performed By: #### C BC #### [facility] [address] [place] [address] Dr. Tasha Dodson MANUAL DIFF REQ NO Normal [facility] Comment on above: Performed By: #### C BC #### [facility] [address] [address] [address] Tasha Dodson MCH (RBC) [Entitic mass] 31.0 pg Normal 26.7-34.0 [facility] Comment on above: Performed By: #### C BC #### [facility] [address] [place] [address] Dr. Tasha Dodson MCHC (RBC) [Mass/Vol] 36.4 g/dL Critically high 29.9-35.2 [facility] Comment on above: Performed By: #### C BC #### [facility] [id number] Tasha Dodson MCV (RBC) [Entitic vol] 85.1 fL Normal 81.0-99.0 [facility] Comment on above: Performed By: #### C BC #### [facility] [address] [address] [address] Tasha Dodson MONO # 1.1 103/ul Critically high 0.3-0.8 [facility] Comment on above: Performed By: #### C BC #### [facility] [address] [address] [address] Tasha Dodson Monocytes/100 WBC (Bld) 8.3 % Normal 1.7-12.0 [facility] Comment on above: Performed By: #### C BC #### [facility] [address] [address] [address] Tasha Dodson NEUT # 9.5 103/ul Critically high 1.4-6.5 [facility] Comment on above: Performed By: #### C BC #### [facility] [address] [address] [address] Tasha Dodson Neutrophils/100 WBC (Bld) 73.0 % Normal 43.0-75.0 [facility] Comment on above: Performed By: #### C BC #### [facility] [address] [address] [address] Tasha Dodson Platelet mean volume (Bld) [Entitic vol] 8.3 fL Critically low 9.5-13.5 [facility] Comment on above: Performed By: #### C BC #### [facility] [address] [address] [address] Tasha Dodson PLT 408 103/ul Normal 150-450 [facility] Comment on above: Performed By: #### C BC #### [facility] [id number] Tasha Dodson RBC 4.16 106/ul Critically low 4.20-5.40 [facility] Comment on above: Performed By: #### C BC #### [facility] [address] [address] [address] Tasha Dodson WBC 13.0 103/ul Critically high 4.0-11.0 [facility] Comment on above: Performed By: #### C BC #### [facility] [address] [place] [address] Dr. Tasha Dodson CULTURE SPUTUMon 12-27-2021 CULTURE SPUTUM Culture Observations : NORMAL RESPIRATORY AMADOU. Normal [facility] Comment on above: Performed By: #### C BC #### [facility] [address] [place] [address] Dr. Tasha Dodson PROF 14(COMP METB)on 022 Albumin [Mass/Vol] 3.4 g/dL Normal 3.4-5.0 [facility] Comment on above: Performed By: #### C MADM, LIPA, BNP, CMP #### [facility] [address] [place] [address] Dr. Tasha Dodson Albumin/Globulin [Mass ratio] 1.0 {ratio} Normal [facility] Comment on above: Performed By: #### C MADM, LIPA, BNP, CMP #### [facility] [address] [place] [address] Dr. Tasha Dodson ALP [Catalytic activity/Vol] 54 U/L Normal 46-116 [facility] Comment on above: Performed By: #### C MADM, LIPA, BNP, CMP #### [facility] [address] [place] [address] Dr. Tasha Dodson ALT [Catalytic activity/Vol] 20 U/L Normal 14-59 [facility] Comment on above: Performed By: #### C MADM, LIPA, BNP, CMP #### [facility] [address] [place] [address] Dr. Tasha Dodson Anion gap [Moles/Vol] 10.8 mmol/L Normal [facility] Comment on above: Performed By: #### C MADM, LIPA, BNP, CMP #### [facility] [address] [place] [address] Dr. Tasha Dodson AST [Catalytic activity/Vol] 19 U/L Normal 15-37 [facility] Comment on above: Performed By: #### C MADM, LIPA, BNP, CMP #### [facility] [address] [place] [address] Dr. Tasha Dodson Bilirubin [Mass/Vol] 0.5 mg/dL Normal 0.2-1.0 [facility] Comment on above: Performed By: #### C MADM, LIPA, BNP, CMP #### [facility] [address] [address] [address] Tasha Dodson Calcium [Mass/Vol] 8.3 mg/dL Critically low 8.5-10.1 Th [facility] Comment on above: Performed By: #### C MADM, LIPA, BNP, CMP #### [facility] [address] [place] [address] Dr. Tasha Dodson Chloride [Moles/Vol] 89 mmol/L Critically low 98-107 [facility] Comment on above: Performed By: #### C MADM, LIPA, BNP, CMP #### [facility] [address] [address] [address] Tasha Dodson CO2 [Moles/Vol] 27.0 mmol/L Normal 21.0-32.0 [facility] Comment on above: Performed By: #### C MADM, LIPA, BNP, CMP #### [facility] [address] [place] [address] Dr. Tasha Dodson Creatinine [Mass/Vol] 0.69 mg/dL Normal 0.55-1.02 [facility] Comment on above: Performed By: #### C MADM, LIPA, BNP, CMP #### [facility] [address] [place] [address] Dr. Tasha Dodson EGFR-AF SAMOAN >60 Normal >=60 [facility] Comment on above: Performed By: #### C MADM, LIPA, BNP, CMP #### [facility] [address] [address] [address] Tasha Dodson EGFR-NON AF SAMOAN >60 Normal >=60 [facility] Comment on above: Performed By: #### C MADM, LIPA, BNP, CMP #### [facility] [address] [place] [address] Dr. Tasha Dodson Globulin (S) [Mass/Vol] 3.3 g/dL Normal [facility] Comment on above: Performed By: #### C MADM, LIPA, BNP, CMP #### [facility] [address] [place] [address] Dr. Tasha Dodson Glucose [Mass/Vol] 115 mg/dL Critically high 74-106 [facility] Comment on above: Performed By: #### C MADM, LIPA, BNP, CMP #### [facility] [address] [place] [address] Dr. Tasha Dodson Potassium [Moles/Vol] 2.7 mmol/L Critically low 3.5-5.1 [facility] Comment on above: Result Comment: Test Repeated. Critical Value Verified Performed By: #### C MADM, LIPA, BNP, CMP #### [facility] [address] [place] [address] Dr. Tasha Dodson Protein [Mass/Vol] 6.7 g/dL Normal 6.4-8.2 [facility] Comment on above: Performed By: #### C MADM, LIPA, BNP, CMP #### [facility] [address] [place] [address] Dr. Tasha Dodson Sodium [Moles/Vol] 123 mmol/L Critically low 136-145 [facility] Comment on above: Result Comment: Test Repeated. Critical Value Verified Performed By: #### C MADM, LIPA, BNP, CMP #### [facility] [address] [place] [address] Dr. Tsaha Dodson Urea nitrogen [Mass/Vol] 6.0 mg/dL Critically low 7.0-18. 0 [facility] Comment on above: Performed By: #### C MADM, LIPA, BNP, CMP #### [facility] [address] [place] [address] Dr. Tasha Dodson Urea nitrogen/Creatinine [Mass ratio] 8.7 mg/mg Normal [facility] Comment on above: Performed By: #### C MADM, LIPA, BNP, CMP #### [facility] [address] [address] [address] Tasha Dodson SPUTUM GRAM STAINon 12-28-19 COMMENTS Normal [facility] Comment on above: Performed By: #### T SH, BMP #### [facility] [address] [place] [address] Dr. Tasha Dodson DIPHTHEROIDS Normal [facility] Comment on above: Performed By: #### T SH, BMP #### [facility] [address] [address] [address] Tasha Dodson EPITHELIALS <25 [facility] Comment on above: Performed By: #### T SH, BMP #### [facility] [address] [place] [address] Dr. Tasha Dodson FUNGAL ELEMENTS Normal [facility] Comment on above: Performed By: #### T SH, BMP #### [facility] [address] [place] [address] Dr. Tasha Dodson GRAM NEG BACILLI Normal [facility] Comment on above: Performed By: #### T SH, BMP #### [facility] [address] [address] [address] Tasha Dodson GRAM NEG DIPPLOCOCCI Normal [facility] Comment on above: Performed By: #### T SH, BMP #### [facility] [address] [place] [address] Dr. Tasha Dodson GRAM POS BACILLI Normal [facility] Comment on above: Performed By: #### T SH, BMP #### [facility] [address] [address] [address] Tasha Dodson GRAM POSITIVE COCCI MODERATE Normal [facility] Comment on above: Performed By: #### T SH, BMP #### [facility] [address] [place] [address] Dr. Tasha Dodson WBC (Bld) [#/Vol] 10*3/uL [facility] Comment on above: Performed By: #### T SH, BMP #### [facility] [address] [place] [address] Dr. Tasha Dodson BNPon 12-26-2021 Natriuretic peptide B (Bld) [Mass/Vol] 148.0 pg/mL Normal <=1,800.0 [facility] Comment on above: Performed By: #### C MADM, LIPA, BNP, CMP #### [facility] [address] [place] [address] Dr. Tasha Dodson CARDIAC ANGELO ADMITon 022 CK [Catalytic activity/Vol] 139 U/L Normal 26-192 [facility] Comment on above: Performed By: #### C MADM, LIPA, BNP, CMP #### [facility] [address] [place] [address] Dr. Tasha Dodson CK.MB [Mass/Vol] 2.43 ng/mL Normal <=3.60 [facility] Comment on above: Performed By: #### C MADM, LIPA, BNP, CMP #### [facility] [address] [place] [address] Dr. Tasha Dodson HSTROP 12.2 pg/mL Normal 4.0-51.3 [facility] Comment on above: Result Comment: CUT- OFF POINTS HAVE BEEN ESTABLISHED BASED ON THE FOURTH UNIVERSAL DEFINITIONS OF MYOCARDIAL INFARCTION. THE UPPER REFERENCE LIMIT (URL) OF TROPONIN, DEFINED THE 99TH PERCENTILE OF cTnI DISTRIBUTION IN A REFERENCE POPULATION, HAS BEEN CONFIRMED THE DECISION THRESHOLD FOR [place] DIAGNOSIS. Performed By: #### C MADM, LIPA, BNP, CMP #### [facility] [address] [place] [address] Dr. Tasha Dodson ELIZABETH 110 ng/mL Critically high 9-82 [facility] Comment on above: Performed By: #### C MADM, LIPA, BNP, CMP #### [facility] [address] [place] [address] Dr. Tasha Dodson CBC AUTO DIFFon 12-26-2021 BASO # 0.0 103/ul Normal 0.0-0.1 [facility] Comment on above: Performed By: #### C MADM, LIPA, BNP, CMP #### [facility] [address] [place] [address] Dr. Tasha Dodson Basophils/100 WBC (Bld) 0.3 % Normal 0.2-2.0 [facility] Comment on above: Performed By: #### C MADM, LIPA, BNP, CMP #### [facility] [address] [place] [address] Dr. Tasha Dodson EO # 0.1 103/ul Normal 0.0-0.7 [facility] Comment on above: Performed By: #### C MADM, LIPA, BNP, CMP #### [facility] [address] [place] [address] Dr. Tasha Dodson Eosinophils/100 WBC (Bld) 0.7 % Critically low 0.9-7. 0 [facility] Comment on above: Performed By: #### C MADM, LIPA, BNP, CMP #### [facility] [address] [place] [address] Dr. Tasha Dodson Erythrocyte distribution wid th (RBC) [Ratio] 12.4 % Normal 11.0-15.0 [facility] Comment on above: Performed By: #### C MADM, LIPA, BNP, CMP #### [facility] [address] [place] [address] Dr. Tasha Dodson Hematocrit (Bld) [Volume fraction] 38.9 % Normal 3 6.0-48.0 [facility] Comment on above: Performed By: #### C MADM, LIPA, BNP, CMP #### [facility] [address] [place] [address] Dr. Tasha Dodson Hemoglobin (Bld) [Mass/Vol] 14.4 g/dL Normal 12.0-16. 0 [facility] Comment on above: Performed By: #### C MADM, LIPA, BNP, CMP #### [facility] [address] [place] [address] Dr. Tasha Dodson IG # 0.08 10e3/ul Critically high 0.00-0.03 [facility] Comment on above: Performed By: #### C MADM, LIPA, BNP, CMP #### [facility] [address] [place] [address] Dr. Tasha Dodson IG % 0.5 % Normal 0.0-0.5 [facility] Comment on above: Performed By: #### C MADM, LIPA, BNP, CMP #### [facility] [address] [place] [address] Dr. Tasha Dodson LYMPH # 2.2 103/ul Normal 1.2-3.8 [facility] Comment on above: Performed By: #### C MADM, LIPA, BNP, CMP #### [facility] [address] [place] [address] Dr. Tasha Dodson Lymphocytes/100 WBC (Bld) 15.0 % Critically low 20.5-6 0.0 [facility] Comment on above: Performed By: #### C MADM, LIPA, BNP, CMP #### [facility] [address] [place] [address] Dr. Tasha Dodson MANUAL DIFF REQ NO Normal [facility] Comment on above: Performed By: #### C MADM, LIPA, BNP, CMP #### [facility] [address] [place] [address] Dr. Tasha Dodson MCH (RBC) [Entitic mass] 31.6 pg Normal 26.7-34.0 [facility] Comment on above: Performed By: #### C MADM, LIPA, BNP, CMP #### [facility] [address] [place] [address] Dr. Tasha Dodson MCHC (RBC) [Mass/Vol] 37.0 g/dL Critically high 29.9-35.2 [facility] Comment on above: Performed By: #### C MADM, LIPA, BNP, CMP #### [facility] [address] [place] [address] Dr. Tasha Dodson MCV (RBC) [Entitic vol] 85.3 fL Normal 81.0-99.0 [facility] Comment on above: Performed By: #### C MADM, LIPA, BNP, CMP #### [facility] [address] [address] [address] Tasha Dodson MONO # 1.0 103/ul Critically high 0.3-0.8 [facility] Comment on above: Performed By: #### C MADM, LIPA, BNP, CMP #### [facility] [address] [place] [address] Dr. Tasha Dodson Monocytes/100 WBC (Bld) 6.8 % Normal 1.7-12.0 [facility] Comment on above: Performed By: #### C MADM, LIPA, BNP, CMP #### [facility] [address] [place] [address] Dr. Tasha Dodson NEUT # 11.5 103/ul Critically high 1.4-6.5 [facility] Comment on above: Performed By: #### C MADM, LIPA, BNP, CMP #### [facility] [address] [place] [address] Dr. Tasha Dodson Neutrophils/100 WBC (Bld) 76.7 % Critically high 43.0- 75.0 [facility] Comment on above: Performed By: #### C MADM, LIPA, BNP, CMP #### [facility] [address] [place] [address] Dr. Tasha Dodson Platelet mean volume (Bld) [Entitic vol] 8.6 fL Critically low 9.5-13.5 [facility] Comment on above: Performed By: #### C MADM, LIPA, BNP, CMP #### [facility] [address] [place] [address] Dr. Tasha Dodson PLT 491 103/ul Critically high 150-450 [facility] Comment on above: Performed By: #### C MADM, LIPA, BNP, CMP #### [facility] [address] [place] [address] Dr. Tasha Dodson RBC 4.56 106/ul Normal 4.20-5.40 [facility] Comment on above: Performed By: #### C MADM, LIPA, BNP, CMP #### [facility] [address] [place] [address] Dr. Tasha Dodson WBC 15.0 103/ul Critically high 4.0-11.0 [facility] Comment on above: Performed By: #### C DWAYNE DAS, BNP, CMP #### [facility] [address] [place] [address] Dr. Tasha Dodson CULTURE URINEon 12-26-2021 CULTURE URINE Culture Observations : LIGHT GROWTH OF MIXED GENITAL AMADOU. NO POTENTIAL PATHOGENS SEEN. Normal [facility] Comment on above: Performed By: #### C BC #### [facility] [address] [place] [address] Dr. Tasha Dodson Covid-19 PCR ([facility])on SARS-CoV-2 (COVID-19) RNA CARITO+probe Ql (Unsp spec) Not detected Normal NOT DETECTED The [facility] Comment on above: Result Comment: When diagnostic testing is negative, the possibility of a false negative should be considered in the context of a patient's recent exposures and the presence of clinical signs and symptoms consistent with SARS-CoV-2. This test is not yet approved or cleared by the [place] FDA. When there are no FDA-approved or cleared tests available, and other criteria are met, FDA can make tests available under an emergency access mechanism called an Emergency Use Authorization (EUA). The EUA for this test is supported by the [place] of Health and Human Service's declaration that circumstances exist to justify the emergency use of in vitro diagnostics for the detection and/or diagnosis of the virus that causes COVID-19. This EUA will remain in effect for the duration of the COVID-19 declaration justifying emergency of IVDs, unless it is terminated or revoked by the FDA (after which the test may no longer be used). Performed By: #### C DWAYNE DAS, BNP, CMP #### [facility] [address] [place] [address] Dr. Tasha Dodson ER URINE PROFILEon 2 Bilirubin Ql (U) Negative Normal NEGATIVE [facility] Comment on above: Performed By: #### T SH, BMP #### [facility] [address] [place] [address] Dr. Tasha Dodson Clarity (U) CLEAR Normal CLEAR [facility] Comment on above: Performed By: #### T SH, BMP #### [facility] [address] [place] [address] Dr. Tasha Dodson Color (U) LT. YELLOW Normal YELLOW [facility] Comment on above: Performed By: #### T SH, BMP #### [facility] [address] [place] [address] Dr. Tasha Dodson ERUAHD A micrscopic examina tion will be performed if indicated. Normal The [facility] l Comment on above: Performed By: #### T SH, BMP #### [facility] [address] [place] [address] Dr. Tasha Dodson Glucose Ql (U) Negative Normal NEGATIVE [facility] Comment on above: Performed By: #### T SH, BMP #### [facility] [address] [place] [address] Dr. Tasha Dodson Hemoglobin Ql (U) TRACE-INTACT Abnormal NEGATIVE [facility] Comment on above: Performed By: #### T SH, BMP #### [facility] [address] [place] [address] Dr. Tasha Dodson Ketones Ql (U) TRACE Abnormal NEGATIVE [facility] Comment on above: Performed By: #### T SH, BMP #### [facility] [address] [place] [address] Dr. Tasha Dodson LEUKOCYTES Negative Normal NEGATIVE [facility] Comment on above: Performed By: #### T SH, BMP #### [facility] [address] [place] [address] Dr. Tasha Dodson Nitrite Ql (U) Negative Normal NEGATIVE [facility] Comment on above: Performed By: #### T SH, BMP #### [facility] [address] [place] [address] Dr. Tasha Dodson pH (U) 7.0 [pH] Normal 5-9 [facility] Comment on above: Performed By: #### T SH, BMP #### [facility] [address] [place] [address] Dr. Tasha Dodson SPEC GRAVITY 1.010 Normal 1.005-<=1.025 [facility] Comment on above: Performed By: #### T SH, BMP #### [facility] [address] [place] [address] Dr. Tasha Dodson UA PROTEIN Negative Normal NEGATIVE/ TRACE [facility] Comment on above: Performed By: #### T SH, BMP #### [facility] [address] [place] [address] Dr. Tasha Dodson UR MICRO IND INDICATED Normal [facility] Comment on above: Performed By: #### T JESI, BMP #### [facility] [address] [place] [address] Dr. Tasha Dodson Urobilinogen Qn (U) 0.2 {Juan'U}/dL Normal 0.2 - 1. 0 [facility] Comment on above: Performed By: #### T JESI, BMP #### [facility] [address] [place] [address] Dr. Tasha Dodson INFLUENZA A AND B AGon 12-26 INFLUANE SEE BELOW Normal [facility] Comment on above: Result Comment: Nega tive for Flu A protein angiten. Infection due to Flu A cannot be ruled out. Flu A angiten in the sample may be below the detection limit of the test. Performed By: #### C BC #### [facility] [address] [place] [address] Dr. Tasha Dodson INFLUBNEGH SEE BELOW Normal [facility] Comment on above: Result Comment: Nega tive for Flu B protein antigen. Infection due to Flu B cannot be ruled out. Flu B antigen in the sample may be below the detection limit of the test. Performed By: #### C BC #### [facility] [address] [place] [address] Dr. Tasha Dodson INFLUENZA A AG Negative Normal NEGATIVE SEE COMMENT The [facility] Comment on above: Performed By: #### C BC #### [facility] [address] [place] [address] Dr. Tasha Dodson INFLUENZA B AG Negative Normal NEGATIVE SEE COMMENT [facility] Comment on above: Performed By: #### C BC #### [facility] [address] [place] [address] Dr. Tasha Dodson INTERNAL CONTROLS Within Normal Limits Normal Wi thin Normal Limits [facility] Comment on above: Performed By: #### C BC #### [facility] [address] [place] [address] Dr. Tasha Dodson LACTATE/LACTIC ACIDon 2021 Lactate [Moles/Vol] 1.5 mmol/L Normal 0.4-1.9 [facility] Comment on above: Performed By: #### T SH, BMP #### [facility] [address] [place] [address] Dr. Tasha Dodson LIPASEon 12-26-2021 Lipase [Catalytic activity/Vol] 96.0 U/L Normal 73.0 -393.0 [facility] Comment on above: Performed By: #### C MADM, LIPA, BNP, CMP #### [facility] [address] [place] [address] Dr. Tasha Dodson PROF 14(COMP METB)on 022 Albumin [Mass/Vol] 4.2 g/dL Normal 3.4-5.0 [facility] Comment on above: Performed By: #### C MADM, LIPA, BNP, CMP #### [facility] [address] [place] [address] Dr. Tasha Dodson Albumin/Globulin [Mass ratio] 1.1 {ratio} Normal [facility] Comment on above: Performed By: #### C MADM, LIPA, BNP, CMP #### [facility] [address] [place] [address] Dr. Tasha Dodson ALP [Catalytic activity/Vol] 68 U/L Normal 46-116 [facility] Comment on above: Performed By: #### C MADM, LIPA, BNP, CMP #### [facility] [address] [place] [address] Dr. Tasha Dodson ALT [Catalytic activity/Vol] 23 U/L Normal 14-59 [facility] Comment on above: Performed By: #### C MADM, LIPA, BNP, CMP #### [facility] [address] [address] [address] Tasha Dodson Anion gap [Moles/Vol] 12.3 mmol/L Normal Th e [facility] Comment on above: Performed By: #### C MADM, LIPA, BNP, CMP #### [facility] [address] [place] [address] Dr. Tasha Dodson AST [Catalytic activity/Vol] 25 U/L Normal 15-37 [facility] Comment on above: Performed By: #### C MADM, LIPA, BNP, CMP #### [facility] [address] [address] [address] Tasha Dodson Bilirubin [Mass/Vol] 0.7 mg/dL Normal 0.2-1.0 [facility] Comment on above: Performed By: #### C MADM, LIPA, BNP, CMP #### [facility] [address] [place] [address] Dr. Tasha Dodson Calcium [Mass/Vol] 9.5 mg/dL Normal 8.5-10.1 [facility] Comment on above: Performed By: #### C MADM, LIPA, BNP, CMP #### [facility] [address] [place] [address] Dr. Tasha Dodson Chloride [Moles/Vol] 80 mmol/L Critically low 98-107 [facility] Comment on above: Performed By: #### C MADM, LIPA, BNP, CMP #### [facility] [address] [place] [address] Dr. Tasha Dodson CO2 [Moles/Vol] 27.1 mmol/L Normal 21.0-32.0 [facility] Comment on above: Performed By: #### C MADM, LIPA, BNP, CMP #### [facility] [address] [place] [address] Dr. Tasha Dodson Creatinine [Mass/Vol] 0.85 mg/dL Normal 0.55-1.02 [facility] Comment on above: Performed By: #### C MADM, LIPA, BNP, CMP #### [facility] [address] [address] [address] Tasha Dodson EGFR-AF SAMOAN >60 Normal >=60 [facility] Comment on above: Performed By: #### C MADM, LIPA, BNP, CMP #### [facility] [address] [address] [address] Tasha Dodson EGFR-NON AF SAMOAN >60 Normal >=60 [facility] Comment on above: Performed By: #### C MADM, LIPA, BNP, CMP #### [facility] [address] [address] [address] Tasha Dodson Globulin (S) [Mass/Vol] 3.9 g/dL Normal [facility] Comment on above: Performed By: #### C MADM, LIPA, BNP, CMP #### [facility] [address] [place] [address] Dr. Tasha Dodson Glucose [Mass/Vol] 132 mg/dL Critically high 74-106 [facility] Comment on above: Performed By: #### C MADM, LIPA, BNP, CMP #### [facility] [address] [address] [address] Tasha Dodson Potassium [Moles/Vol] 2.4 mmol/L Critically low 3.5-5.1 [facility] Comment on above: Performed By: #### C MADM, LIPA, BNP, CMP #### [facility] [address] [address] [address] Tasha Dodson Protein [Mass/Vol] 8.1 g/dL Normal 6.4-8.2 [facility] Comment on above: Performed By: #### C MADM, LIPA, BNP, CMP #### [facility] [address] [place] [address] Dr. Tasha Dodson Sodium [Moles/Vol] 116 mmol/L Critically low 136-145 [facility] Comment on above: Performed By: #### C MADM, LIPA, BNP, CMP #### [facility] [address] [place] [address] Dr. Tasha Dodson Urea nitrogen [Mass/Vol] 12.0 mg/dL Normal 7.0-18.0 [facility] Comment on above: Performed By: #### C MADM, LIPA, BNP, CMP #### [facility] [address] [place] [address] Dr. Tasha Dodson Urea nitrogen/Creatinine [Mass ratio] 14.1 mg/mg Normal [facility] Comment on above: Performed By: #### C MADM, LIPA, BNP, CMP #### [facility] [address] [place] [address] Dr. Tasha Dodson PROF CHEM 8 (BAS METB)on Anion gap [Moles/Vol] 11.4 mmol/L Normal [facility] Comment on above: Performed By: #### T SH, BMP #### [facility] [address] [place] [address] Dr. Tasha Dodson Calcium [Mass/Vol] 8.4 mg/dL Critically low 8.5-10.1 [facility] Comment on above: Performed By: #### T SH, BMP #### [facility] [address] [place] [address] Dr. Tasha Dodson Chloride [Moles/Vol] 89 mmol/L Critically low 98-107 [facility] Comment on above: Performed By: #### T SH, BMP #### [facility] [address] [place] [address] Dr. Tasha Dodson CO2 [Moles/Vol] 25.5 mmol/L Normal 21.0-32.0 [facility] Comment on above: Performed By: #### T SH, BMP #### [facility] [address] [place] [address] Dr. Tasha Dodson Creatinine [Mass/Vol] 0.89 mg/dL Normal 0.55-1.02 [facility] Comment on above: Performed By: #### T SH, BMP #### [facility] [address] [place] [address] Dr. Tasha Dodson EGFR-AF SAMOAN >60 Normal >=60 [facility] Comment on above: Performed By: #### T SH, BMP #### [facility] [address] [address] [address] Tasha Dodson EGFR-NON AF SAMOAN 60 mL/min/1.73m2 Normal >=60 [facility] Comment on above: Performed By: #### T SH, BMP #### [facility] [address] [address] [address] Tasha Dodson Glucose [Mass/Vol] 166 mg/dL Critically high 74-106 [facility] Comment on above: Performed By: #### T SH, BMP #### [facility] [address] [address] [address] Tasha Dodson Potassium [Moles/Vol] 3.0 mmol/L Critically low 3.5-5.1 [facility] Comment on above: Performed By: #### T SH, BMP #### [facility] [address] [place] [address] Dr. Tasha Dodson Sodium [Moles/Vol] 123 mmol/L Critically low 136-145 [facility] Comment on above: Performed By: #### T SH, BMP #### [facility] [address] [place] [address] Dr. Tasha Dodson Urea nitrogen [Mass/Vol] 9.0 mg/dL Normal 7.0-18.0 [facility] Comment on above: Performed By: #### T SH, BMP #### [facility] [address] [place] [address] Dr. Tasha Dodson Urea nitrogen/Creatinine [Mass ratio] 10.1 mg/mg Normal [facility] Comment on above: Performed By: #### T SH, BMP #### [facility] [address] [place] [address] Dr. Tasha Dodson PROTIMEon 12-26-2021 INR Coag (PPP) [Relative time] 0.96 {INR} Normal [facility] Comment on above: Performed By: #### T SH, BMP #### [facility] [address] [place] [address] Dr. Tasha Dodson INR GUIDELINES SEE BELOW Normal [facility] Comment on above: Result Comment: JO RED INR: 2.0 - 3.0 CONDITIONS NOT LISTED BELOW 2.5 - 3.5 FOR PROSTHETIC HEART VALVE REPLACEMENT 2.5 - 3.5 RECURRENT THROMBOSIS Performed By: #### T JESI, BMP #### [facility] [address] [place] [address] Dr. Tasha Dodson PT Coag (PPP) [Time] 10.4 s Normal 9.0-11.6 [facility] Comment on above: Performed By: #### T JESI, BMP #### [facility] [address] [place] [address] Dr. Tasha Dodson PTTon 12-26-2021 aPTT Coag (Bld) [Time] 26.2 s Normal 22.3-36.2 [facility] Comment on above: Performed By: #### T JESI, BMP #### [facility] [address] [place] [address] Dr. Tasha Dodson SODIUM RANDOM URINEon 2021 Sodium (U) [Moles/Vol] 71 mmol/L Normal 30-90 [facility] Comment on above: Performed By: #### T JESI, BMP #### [facility] [address] [place] [address] Dr. Tasha Dodson T4on 12-26-2021 T4 [Mass/Vol] 10.60 ug/dL Normal 4.80-13.90 [facility] Comment on above: Performed By: #### C BC #### [facility] [address] [place] [address] Dr. Tasha Dodson TSHon 12-26-2021 TSH 5.236 uIU/mL Critically high 0.358-3.740 [facility] Comment on above: Performed By: #### C BC #### [facility] [address] [place] [address] Dr. Tasha Dodson URINE MICROSCOPIC ONLYon BACTERIA TRACE Abnormal NONE SEEN [facility] Comment on above: Performed By: #### T JESI, BMP #### [facility] [address] [place] [address] Dr. Tasha Dodson Bacteria identified Cx Nom (U) NOT INDICATED Normal [facility] Comment on above: Performed By: #### T SH, BMP #### [facility] [address] [place] [address] Dr. Tasha Dodson CAST NONE SEEN Normal NONE SEEN [facility] Comment on above: Performed By: #### T SH, BMP #### [facility] [address] [place] [address] Dr. Tasha Dodson Crystals LM Nom (Urine sed) NONE SEEN Normal NONE SEE N [facility] Comment on above: Performed By: #### T SH, BMP #### [facility] [address] [place] [address] Dr. Tasha Dodson Epithelial cells LM Ql (Urin e sed) NONE SEEN Normal NONE SEEN /RARE [facility] pital Comment on above: Performed By: #### T SH, BMP #### [facility] [address] [place] [address] Dr. Tasha Dodson MUCOUS NONE SEEN Normal NONE SEEN [facility] Comment on above: Performed By: #### T SH, BMP #### [facility] [address] [place] [address] Dr. Tasha Dodson RBC 0-2 Normal 0-2 [facility] Comment on above: Performed By: #### T SH, BMP #### [facility] [address] [place] [address] Dr. Tasha Dodson WBC 0-2 Abnormal NONE SEEN [facility] Comment on above: Performed By: #### T SH, BMP #### [facility] [address] [place] [address] Dr. Tasha Dodson XR CHEST 1 Von 12-26-2021 XR CHEST 1 V EXAMINATION: XR CHES T 1 V, 12/26/2021 10:49 AM EST HISTORY: COUGH COMPARISON: 01/04/2020 TECHNIQUE: AP portable view of the chest performed. FINDINGS: Medical devices: None. Cardiomediastinal silhouette is within normal limits. The lungs are clear. No large pleural effusion, or pneumothorax. IMPRESSION: 1. No acute cardiopulmonary abnormality. Electronically authenticated by: TING MIXON Date: 2021-12-26 11:32 Normal [facility] XR LSPINE MIN 4 VIEWSon 11-20 XR LSPINE MIN 4 VIEWS EXAMINATION: XR LS PINE MIN 4 VIEWS HISTORY: Right side sciatica , and occasional left sciatica COMPARISON: XR lumbar spine 01/07/2019 FINDINGS: BONES: Posterior mechanical fusion L3-L4-5 via bilateral pedicle screws and rods; no evidence of hardware fracture or loosening. Posterior decompression L3-L4-5. Moderate degenerative facet arthropathy L2-L3 through L5-S1. DISC SPACES: Intervertebral spacers L3-L4, L4-L5. Moderate narrowing L2-L3 and L5-S1. PARASPINOUS: Marked atherosclerotic disease of aorta without appreciable aneurysm. Oval density within left upper quadrant likely represents a medication or mineral tablets within bowel. OTHER: Negative. IMPRESSION: 1. Stable surgical changes without evidence of hardware failure or change in alignment. 2. Multilevel moderate degenerative disc disease and degenerative facet arthropathy, stable to slightly progressed. Electronically authenticated by: JESUS BRUNO Date: 2021-11-30 22:52 Normal [facility] l CBC AUTO DIFFon 11-09-2021 BASO # 0.1 103/ul Normal 0.0-0.1 [facility] Comment on above: Performed By: #### C MADM, LIPA, BNP, CMP #### [facility] [address] [place] [address] Dr. Tasha Dodson Basophils/100 WBC (Bld) 0.7 % Normal 0.2-2.0 [facility] Comment on above: Performed By: #### C MADM, LIPA, BNP, CMP #### [facility] [address] [address] [address] Tasha Dodson EO # 0.2 103/ul Normal 0.0-0.7 [facility] Comment on above: Performed By: #### C MADM, LIPA, BNP, CMP #### [facility] [address] [place] [address] Dr. Tasha Dodson Eosinophils/100 WBC (Bld) 1.8 % Normal 0.9-7.0 [facility] Comment on above: Performed By: #### C MADM, LIPA, BNP, CMP #### [facility] [address] [place] [address] Dr. Tasha Dodson Erythrocyte distribution wid th (RBC) [Ratio] 13.0 % Normal 11.0-15.0 [facility] Comment on above: Performed By: #### C MADM, LIPA, BNP, CMP #### [facility] [address] [place] [address] Dr. Tasha Dodson Hematocrit (Bld) [Volume fraction] 33.8 % Critically low 36.0-48.0 [facility] Comment on above: Performed By: #### C MADM, LIPA, BNP, CMP #### [facility] [address] [place] [address] Dr. Tasha Dodson Hemoglobin (Bld) [Mass/Vol] 12.5 g/dL Normal 12.0-16. 0 [facility] Comment on above: Performed By: #### C MADM, LIPA, BNP, CMP #### [facility] [address] [place] [address] Dr. Tasha Dodson IG # 0.02 10e3/ul Normal 0.00-0.03 [facility] Comment on above: Performed By: #### C MADM, LIPA, BNP, CMP #### [facility] [address] [place] [address] Dr. Tasha Dodson IG % 0.2 % Normal 0.0-0.5 [facility] Comment on above: Performed By: #### C MADM, LIPA, BNP, CMP #### [facility] [address] [place] [address] Dr. Tasha Dodson LYMPH # 2.9 103/ul Normal 1.2-3.8 [facility] Comment on above: Performed By: #### C MADM, LIPA, BNP, CMP #### [facility] [address] [place] [address] Dr. Tasha Dodson Lymphocytes/100 WBC (Bld) 29.4 % Normal 20.5-60.0 [facility] Comment on above: Performed By: #### C MADM, LIPA, BNP, CMP #### [facility] [address] [place] [address] Dr. Tasha Dodson MANUAL DIFF REQ NO Normal [facility] Comment on above: Performed By: #### C MADM, LIPA, BNP, CMP #### [facility] [address] [place] [address] Dr. Tasha Dodson MCH (RBC) [Entitic mass] 34.1 pg Critically high 26.7-3 4.0 [facility] Comment on above: Performed By: #### C MADM, LIPA, BNP, CMP #### [facility] [address] [place] [address] Dr. Tasha Dodson MCHC (RBC) [Mass/Vol] 37.0 g/dL Critically high 29.9-35.2 [facility] Comment on above: Performed By: #### C MADM, LIPA, BNP, CMP #### [facility] [address] [place] [address] Dr. Tasha Dodson MCV (RBC) [Entitic vol] 92.1 fL Normal 81.0-99.0 [facility] Comment on above: Performed By: #### C MADM, LIPA, BNP, CMP #### [facility] [address] [place] [address] Dr. Tasha Dodson MONO # 0.8 103/ul Normal 0.3-0.8 [facility] Comment on above: Performed By: #### C MADM, LIPA, BNP, CMP #### [facility] [address] [place] [address] Dr. Tasha Dodson Monocytes/100 WBC (Bld) 8.2 % Normal 1.7-12.0 [facility] Comment on above: Performed By: #### C MADM, LIPA, BNP, CMP #### [facility] [address] [place] [address] Dr. Tasha Dodson NEUT # 5.9 103/ul Normal 1.4-6.5 [facility] Comment on above: Performed By: #### C MADM, LIPA, BNP, CMP #### [facility] [address] [place] [address] Dr. Tasha Dodson Neutrophils/100 WBC (Bld) 59.7 % Normal 43.0-75.0 [facility] Comment on above: Performed By: #### C MADM, LIPA, BNP, CMP #### [facility] [address] [place] [address] Dr. Tasha Dodson Platelet mean volume (Bld) [Entitic vol] 8.9 fL Critically low 9.5-13.5 [facility] Comment on above: Performed By: #### C MADM, LIPA, BNP, CMP #### [facility] [address] [place] [address] Dr. Tasha Dodson PLT 370 103/ul Normal 150-450 [facility] Comment on above: Performed By: #### C MADM, LIPA, BNP, CMP #### [facility] [address] [place] [address] Dr. Tasha Dodson RBC 3.67 106/ul Critically low 4.20-5.40 [facility] Comment on above: Performed By: #### C MADM, LIPA, BNP, CMP #### [facility] [address] [place] [address] Dr. Tasha Dodson WBC 9.9 103/ul Normal 4.0-11.0 [facility] Comment on above: Performed By: #### C MADM, LIPA, BNP, CMP #### [facility] [address] [place] [address] Dr. Tasha Dodson FREE T4on 11-09-2021 Free T4 [Mass/Vol] 1.48 ng/dL Critically high 0.76-1.46 [facility] Comment on above: Performed By: #### F T4 #### [facility] [address] [place] [address] Dr. Tasha Dodson PROF CHEM 8 (BAS METB)on Anion gap [Moles/Vol] 11.1 mmol/L Normal [facility] Comment on above: Performed By: #### T SH, BMP #### [facility] [address] [address] [address] Tasha Dodson Calcium [Mass/Vol] 9.3 mg/dL Normal 8.5-10.1 [facility] Comment on above: Performed By: #### T SH, BMP #### [facility] [address] [place] [address] Dr. Tasha Dodson Chloride [Moles/Vol] 92 mmol/L Critically low 98-107 [facility] Comment on above: Performed By: #### T SH, BMP #### [facility] [address] [place] [address] Dr. Tasha Dodson CO2 [Moles/Vol] 29.2 mmol/L Normal 21.0-32.0 [facility] Comment on above: Performed By: #### T SH, BMP #### [facility] [address] [place] [address] Dr. Tasha Dodson Creatinine [Mass/Vol] 0.68 mg/dL Normal 0.55-1.02 [facility] Comment on above: Performed By: #### T SH, BMP #### [facility] [address] [place] [address] Dr. Tasha Dodson EGFR-AF SAMOAN >60 Normal >=60 [facility] Comment on above: Performed By: #### T SH, BMP #### [facility] [address] [place] [address] Dr. Tasha Dodson EGFR-NON AF SAMOAN >60 Normal >=60 [facility] Comment on above: Performed By: #### T SH, BMP #### [facility] [address] [place] [address] Dr. Tasha Dodson Glucose [Mass/Vol] 109 mg/dL Critically high 74-106 [facility] Comment on above: Performed By: #### T SH, BMP #### [facility] [address] [place] [address] Dr. Tasha Dodson Potassium [Moles/Vol] 3.3 mmol/L Critically low 3.5-5.1 [facility] Comment on above: Performed By: #### T SH, BMP #### [facility] [address] [place] [address] Dr. Tasha Dodson Sodium [Moles/Vol] 129 mmol/L Critically low 136-145 Th [facility] Comment on above: Performed By: #### T SH, BMP #### [facility] [address] [place] [address] Dr. Tasha Dodson Urea nitrogen [Mass/Vol] 9.0 mg/dL Normal 7.0-18.0 [facility] Comment on above: Performed By: #### T SH, BMP #### [facility] [address] [place] [address] Dr. Tasha Dodson Urea nitrogen/Creatinine [Mass ratio] 13.2 mg/mg Normal [facility] Comment on above: Performed By: #### T JESI, BMP #### [facility] [address] [place] [address] Dr. Tasha Dodson TSHon 11-09-2021 TSH 1.193 uIU/mL Normal 0.358-3.740 [facility] Comment on above: Performed By: #### T JESI, BMP #### [facility] [address] [place] [address] Dr. Tasha Dodson LIPID PROFILEon 08-06-2021 CHOL-HDL RATIO NORM SEE BELOW Normal [facility] Comment on above: Result Comment: 3.3 - 4.4 LOW RISK 4.4 - 7.1 AVERAGE RISK 7.1 - 11.0 MODERATE RISK >11.0 HIGH RISK Performed By: #### C MADM, LIPA, BNP, CMP #### [facility] [address] [place] [address] Dr. Tasha Dodson Cholesterol [Mass/Vol] 198 mg/dL Normal <=200 Th [facility] Comment on above: Performed By: #### C MADM, LIPA, BNP, CMP #### [facility] [address] [place] [address] Dr. Tasha Dodson Cholesterol in HDL [Mass/Vol] 77 mg/dL Critically high 4 0-60 [facility] Comment on above: Performed By: #### C MADM, LIPA, BNP, CMP #### [facility] [address] [place] [address] Dr. Tasha Dodson Cholesterol in LDL [Mass/Vol] 106.0 mg/dL Normal [facility] Comment on above: Performed By: #### C MADM, LIPA, BNP, CMP #### [facility] [address] [address] [address] Tasha Dodson Cholesterol.total/Cholestero l in HDL [Mass ratio] 2.6 {ratio} Normal [facility] Comment on above: Performed By: #### C MADM, LIPA, BNP, CMP #### [facility] [address] [address] [address] Tasha Dodson HDL NORMAL > or = 60 mg/dl - LO W CARDIOVASCULAR RISK <40 mg/dl - HIGH CARDIOVASCULAR RISK Normal [facility] Comment on above: Performed By: #### C MADM, LIPA, BNP, CMP #### [facility] [address] [place] [address] Dr. Tasha Dodson LDL CALC NORMAL SEE BELOW Normal [facility] Comment on above: Result Comment: <100 mg/dl OPTIMAL 100 - 129 mg/dl NEAR OR ABOVE OPTIMAL 130 - 159 mg/dl BORDERLINE HIGH 160 - 189 mg/dl HIGH >190 mg/dl VERY HIGH Performed By: #### C MADM, LIPA, BNP, CMP #### [facility] [address] [place] [address] Dr. Tasha Dodson Triglyceride [Mass/Vol] 75 mg/dL Normal <=150 [facility] Comment on above: Performed By: #### C MADM, LIPA, BNP, CMP #### [facility] [address] [place] [address] Dr. Tasha Dodson VLDL CALC 15.0 mg/dL Normal [facility] Comment on above: Performed By: #### C MADM, LIPA, BNP, CMP #### [facility] [address] [address] [address] Tasha Dodson LIVER PROFILEon 08-06-2021 Albumin [Mass/Vol] 3.7 g/dL Normal 3.4-5.0 [facility] Comment on above: Performed By: #### C MADM, LIPA, BNP, CMP #### [facility] [address] [place] [address] Dr. Tasha Dodson Albumin/Globulin [Mass ratio] 1.0 {ratio} Normal [facility] Comment on above: Performed By: #### C MADM, LIPA, BNP, CMP #### [facility] [address] [place] [address] Dr. Tasha Dodson ALP [Catalytic activity/Vol] 62 U/L Normal 46-116 [facility] Comment on above: Performed By: #### C MADM, LIPA, BNP, CMP #### [facility] [address] [place] [address] Dr. Tasha Dodson ALT [Catalytic activity/Vol] 26 U/L Normal 14-59 [facility] Comment on above: Performed By: #### C MADM, LIPA, BNP, CMP #### [facility] [address] [place] [address] Dr. Tasha Dodson AST [Catalytic activity/Vol] 24 U/L Normal 15-37 [facility] Comment on above: Performed By: #### C MADM, LIPA, BNP, CMP #### [facility] [address] [place] [address] Dr. Tasha Dodson BILI, CONJUGATED 0.1 mg/dL Normal 0.0-0.2 [facility] Comment on above: Performed By: #### C MADM, LIPA, BNP, CMP #### [facility] [address] [place] [address] Dr. Tasha Dodson Bilirubin [Mass/Vol] 0.5 mg/dL Normal 0.2-1.0 [facility] Comment on above: Performed By: #### C MADM, LIPA, BNP, CMP #### [facility] [facility] [address] [place] [address] Dr. Tasha Dodson Globulin (S) [Mass/Vol] 3.8 g/dL Normal T [facility] Comment on above: Performed By: #### C MADM, LIPA, BNP, CMP #### [facility] [address] [place] [address] Dr. Tasha Dodson Protein [Mass/Vol] 7.5 g/dL Normal 6.4-8.2 [facility] Comment on above: Performed By: #### C MADM, LIPA, BNP, CMP #### [facility] [address] [place] [address] Dr. Tasha Dodson FREE T4on 07-28-2021 Free T4 [Mass/Vol] 1.32 ng/dL Normal 0.76-1.46 [facility] Comment on above: Performed By: #### T SH, BMP #### [facility] [address] [address] [address] Tasha Dodson PROF CHEM 8 (BAS METB)on Anion gap [Moles/Vol] 11.6 mmol/L Normal [facility] Comment on above: Performed By: #### B MP, TSH #### [facility] [address] [place] [address] Dr. Tasha Dodson Calcium [Mass/Vol] 9.4 mg/dL Normal 8.5-10.1 [facility] Comment on above: Performed By: #### B MP, TSH #### [facility] [address] [address] [address] Tasha Dodson Chloride [Moles/Vol] 93 mmol/L Critically low 98-107 [facility] Comment on above: Performed By: #### B MP, TSH #### [facility] [address] [place] [address] Dr. Tasha Dodson CO2 [Moles/Vol] 29.8 mmol/L Normal 21.0-32.0 [facility] Comment on above: Performed By: #### B MP, TSH #### [facility] [address] [place] [address] Dr. Tasha Dodson Creatinine [Mass/Vol] 0.74 mg/dL Normal 0.55-1.02 [facility] Comment on above: Performed By: #### B MP, TSH #### [facility] [address] [place] [address] Dr. Tasha Dodson EGFR-AF SAMOAN >60 Normal >=60 [facility] Comment on above: Performed By: #### B MP, TSH #### [facility] [address] [address] [address] Tasha Dodson EGFR-NON AF SAMOAN >60 Normal >=60 [facility] Comment on above: Performed By: #### B MP, TSH #### [facility] [address] [address] [address] Tasha Dodson Glucose [Mass/Vol] 114 mg/dL Critically high 74-106 T [facility] Comment on above: Performed By: #### B MP, TSH #### [facility] [address] [address] [address] Tasha Dodson Potassium [Moles/Vol] 3.4 mmol/L Critically low 3.5-5.1 [facility] Comment on above: Performed By: #### B MP, TSH #### [facility] [address] [address] [address] Tasha Dodson Sodium [Moles/Vol] 131 mmol/L Critically low 136-145 [facility] Comment on above: Performed By: #### B MP, TSH #### [facility] [address] [address] [address] Tasha Dodson Urea nitrogen [Mass/Vol] 12.0 mg/dL Normal 7.0-18.0 [facility] Comment on above: Performed By: #### B MP, TSH #### [facility] [address] [address] [address] Tasha Dodson Urea nitrogen/Creatinine [Mass ratio] 16.2 mg/mg Normal [facility] Comment on above: Performed By: #### B MP, TSH #### [facility] [address] [address] [address] Tasha Dodson TSHon 07-28-2021 TSH 1.790 uIU/mL Normal 0.358-3.740 [facility] Comment on above: Performed By: #### B MP, TSH #### [facility] [address] [address] [address] Tasha Dodson TSH RANGE SEE BELOW Normal [facility] Comment on above: Result Comment: <0.3 4 UIU/ml HYPERTHYROID 0.34-5.60 UIU/ml EUTHYROID >5.60 UIU/ml HYPOTHYROID Performed By: #### B MP, TSH #### [facility] [address] [address] [address] Tasha Dodson CBC Auto Differentialon 10-0 Basophils (Bld) [#/Vol] 0.1 10*3/uL 0 - 0.2 K/u L [place] Basophils/100 WBC (Bld) 1.1 % [place] Eosinophils (Bld) [#/Vol] 0.2 10*3/uL 0 - 0.7 K /uL [place] Eosinophils/100 WBC (Bld) 1.4 % [place] Erythrocyte distribution wid th (RBC) [Ratio] 14.4 % 11.5 - 14.5 % [place] Hematocrit (Bld) [Volume fraction] 33.6 % Low 37 - 47 % [place] Hemoglobin (Bld) [Mass/Vol] 11.1 g/dL Low 12 - 16 g/dL [place] Interpretation and review of laboratory results Abnormal [place] Lymphocytes (Bld) [#/Vol] 2.3 10*3/uL 1 - 4.8 K /uL [place] Lymphocytes/100 WBC (Bld) 18.0 % [place] MCH (RBC) [Entitic mass] 29.5 pg 27 - 31.3 p g [place] MCHC (RBC) [Mass/Vol] 33.0 % 33 - 37 % [place] MCV (RBC) [Entitic vol] 89.5 fL 82 - 100 fL [place] Monocytes (Bld) [#/Vol] 0.9 10*3/uL High 0.2 - 0.8 K /uL [place] Monocytes/100 WBC (Bld) 6.9 % [place] Neutrophils Absolute 9.1 K/uL High 1.4 - 6.5 K/uL [place] Neutrophils/100 WBC (Bld) 72.6 % [place] Platelets (Bld) [#/Vol] 548 10*3/uL High 130 - 400 K /uL [place] RBC (Bld) [#/Vol] 3.75 10*6/uL Low [place] WBC (Bld) [#/Vol] 12.5 10*3/uL High 4.8 - 10.8 K/uL [place] CBC With Platelet and Differ entialon 11-20-2018 Basophils (Bld) [#/Vol] 0.1 10*3/uL Normal 0.0-0.2 [facility] Comment on above: Performed By: #### E SR #### [facility] [address] [place] [address] Basophils/100 WBC (Bld) 1.1 % Normal [facility] Comment on above: Performed By: #### E SR #### [facility] [address] [place] [address] Eosinophils (Bld) [#/Vol] 0.2 10*3/uL Normal 0.0-0.7 [facility] Comment on above: Performed By: #### E SR #### [facility] [address] [place] [address] Eosinophils/100 WBC (Bld) 1.4 % Normal [facility] Comment on above: Performed By: #### E SR #### [facility] [address] [place] [address] Erythrocyte distribution wid th (RBC) [Ratio] 14.4 % Normal 11.5-14.5 [facility] Comment on above: Performed By: #### E SR #### [facility] [address] [place] [address] Hematocrit (Bld) [Volume fraction] 33.6 % Low 3 7.0-47.0 [facility] Comment on above: Performed By: #### E SR #### [facility] [address] [place] [address] Hemoglobin (Bld) [Mass/Vol] 11.1 g/dL Low 12.0-16. 0 [facility] Comment on above: Performed By: #### E SR #### [facility] [address] [place] [address] Lymphocytes (Bld) [#/Vol] 2.3 10*3/uL Normal 1.0-4.8 [facility] Comment on above: Performed By: #### E SR #### [facility] [address] [place] [address] Lymphocytes/100 WBC (Bld) 18.0 % Normal [facility] Comment on above: Performed By: #### E SR #### [facility] [address] [place] [address] MCH (RBC) [Entitic mass] 29.5 pg Normal 27.0-31.3 [facility] Comment on above: Performed By: #### E SR #### [facility] [address] [place] [address] MCHC (RBC) [Mass/Vol] 33.0 % Normal 33.0-37.0 [facility] Comment on above: Performed By: #### E SR #### [facility] [address] [place] [address] MCV (RBC) [Entitic vol] 89.5 fL Normal 82.0-100.0 [facility] Comment on above: Performed By: #### E SR #### [facility] [address] [place] [address] Monocytes (Bld) [#/Vol] 0.9 10*3/uL Critically high 0.2-0. 8 [facility] Comment on above: Performed By: #### E SR #### [facility] [address] [place] [address] Monocytes/100 WBC (Bld) 6.9 % Normal [facility] Comment on above: Performed By: #### E SR #### [facility] [address] [place] [address] Neutrophils (Bld) [#/Vol] 9.1 10*3/uL Critically high 1.4- 6.5 [facility] Comment on above: Performed By: #### E SR #### [facility] [address] [place] [address] Neutrophils/100 WBC (Bld) 72.6 % Normal [facility] Comment on above: Performed By: #### E SR #### [facility] [address] [place] [address] Platelets (Bld) [#/Vol] 548 10*3/uL Critically high 130-40 0 [facility] Comment on above: Performed By: #### E SR #### [facility] [address] [place] [address] RBC (Bld) [#/Vol] 3.75 10*6/uL Low 4.20-5.40 [facility] Comment on above: Performed By: #### E SR #### [facility] [address] [place] [address] WBC (Bld) [#/Vol] 12.5 10*3/uL Critically high 4.8-10.8 [facility] Comment on above: Performed By: #### E SR #### [facility] [address] [place] [address] EKG 12 Leadon 11-20-2018 Atrial Rate 79 BPM [facility] [place] P [place] 58 degrees [facility] [place] P-R Interval 176 ms [facility] [place] Q-T Interval 404 ms [facility] [place] QRS Duration 130 ms [facility] [place] QTc Calculation ([place]az[place]) 463 ms [facility] [place] R [place] -11 degrees [facility] [place] T [place] 5 degrees [facility] [place] Urea nitrogen [Mass/Vol] Normal sinus rh ythm Right bundle branch block Moderate voltage criteria for LVH, may be normal variant Abnormal ECG When compared with ECG of 13-NOV-2018 08:33, No significant change was found Confirmed by Анна Zamarripa ([id number]) on 11/20/2018 9:39:56 AM [place] Ventricular Rate 79 BPM [place], [place], Chpo Incoming R esults From [place] - 11/20/2018 9:40 AM EDT Normal sinus rhythm Right bundle branch block Moderate voltage criteria for LVH, may be normal variant Abnormal ECG When compared with ECG of 13-NOV-2018 08:33, No significant change was found Confirmed by Анна Zamarripa ([id number]) on 11/20/2018 9:39:56 AM [place] CBC Auto Differentialon 10-23 Neutrophils Absolute 6.1 K/uL 1.4 - 6.5 K/uL [place] CBC With Platelet and Differ entialon 11-19-2018 Basophils (Bld) [#/Vol] 0.2 10*3/uL Normal 0.0-0.2 [place] Comment on above: Performed By: #### C MP #### [facility] [address] [place] [address] Basophils/100 WBC (Bld) 1.5 % Normal [place] Comment on above: Performed By: #### C MP #### [facility] [address] [place] [address] Eosinophils (Bld) [#/Vol] 0.3 10*3/uL Normal 0.0-0.7 [place] Comment on above: Performed By: #### C MP #### [facility] [address] [place] [address] Eosinophils/100 WBC (Bld) 2.5 % Normal [place] Comment on above: Performed By: #### C MP #### [facility] [address] [place] [address] Erythrocyte distribution wid th (RBC) [Ratio] 14.1 % Normal 11.5-14.5 [place] Comment on above: Performed By: #### C MP #### [facility] [address] [place] [address] Hematocrit (Bld) [Volume fraction] 29.3 % Low 3 7.0-47.0 [place] Comment on above: Performed By: #### C MP #### [facility] [address] [place] [address] Hemoglobin (Bld) [Mass/Vol] 10.1 g/dL Low 12.0-16. 0 [place] Comment on above: Performed By: #### C MP #### [facility] [address] [place] [address] Lymphocytes (Bld) [#/Vol] 2.8 10*3/uL Normal 1.0-4.8 [place] Comment on above: Performed By: #### C MP #### [facility] [address] [facility] [address] Lymphocytes/100 WBC (Bld) 27.3 % Normal [place] Comment on above: Performed By: #### C MP #### [facility] [address] [facility] [address] MCH (RBC) [Entitic mass] 30.7 pg Normal 27.0-31.3 [place] Comment on above: Performed By: #### C MP #### [facility] [address] [place] [address] MCHC (RBC) [Mass/Vol] 34.6 % Normal 33.0-37.0 [place] Comment on above: Performed By: #### C MP #### [facility] [address] [place] [address] MCV (RBC) [Entitic vol] 88.9 fL Normal 82.0-100.0 [place] Comment on above: Performed By: #### C MP #### [facility] [address] [place] [address] Monocytes (Bld) [#/Vol] 0.9 10*3/uL Critically high 0.2-0. 8 [place] Comment on above: Performed By: #### C MP #### [facility] [address] [place] [address] Monocytes/100 WBC (Bld) 9.2 % Normal [place] Comment on above: Performed By: #### C MP #### [facility] [address] [place] [address] Neutrophils (Bld) [#/Vol] 6.1 10*3/uL Normal 1.4-6.5 [facility] Comment on above: Performed By: #### C MP #### [facility] [address] [place] [address] Neutrophils/100 WBC (Bld) 59.5 % Normal [place] Comment on above: Performed By: #### C MP #### [facility] [address] [place] [address] Platelets (Bld) [#/Vol] 396 10*3/uL Normal 130-400 [place] Comment on above: Performed By: #### C MP #### [facility] [address] [place] [address] RBC (Bld) [#/Vol] 3.30 10*6/uL Low 4.20-5.40 [place] Comment on above: Performed By: #### C MP #### [facility] [address] [place] [address] WBC (Bld) [#/Vol] 10.2 10*3/uL Normal 4.8-10.8 [place] Comment on above: Performed By: #### C MP #### [facility] [address] [place] [address] High Sensitivity CRPon 11-19 High Sensitivity CRP 89.2 mg/L Critically high 0.0-5.0 [facility] Comment on above: Performed By: #### E SR #### [facility] [address] [address] High sensitivity CRPon 11-19 CRP High Sensitivity 89.2 mg/L High 0 - 5 mg/L [facility], [place] Interpretation and review of laboratory results Abnormal [facility], [place] Otheron 11-19-2018 Interpretation and review of laboratory results Abnormal [place] Sedimentation Rateon 019 Sedimentation Rate 55 mm Critically high 0-[address] [facility] Comment on above: Performed By: #### C MP #### [facility] [address] [place] [address] Sed Rate 55 mm High 0 - 30 mm [place] Basic Metabolic Panelon 10-22 Anion gap [Moles/Vol] 14 mmol/L Normal 9-15 [facility] Comment on above: Performed By: #### C MP #### [facility] [address] [place] [address] Calcium [Mass/Vol] 8.8 mg/dL Normal 8.5-9.9 [facility] Comment on above: Performed By: #### C MP #### [facility] [address] [place] [address] Chloride [Moles/Vol] 95 mmol/L Normal 95-107 [facility] Comment on above: Performed By: #### C MP #### [facility] [address] [place] [address] CO2 [Moles/Vol] 26 mmol/L Normal 20-31 [facility] Comment on above: Performed By: #### C MP #### [facility] [address] [place] [address] Creatinine [Mass/Vol] 0.58 mg/dL Normal 0.50-0.90 [facility] Comment on above: Performed By: #### C MP #### [facility] [address] [place] [address] GFR/1.73 sq M predicted jeanette g blacks MDRD (S/P/Bld) [Vol rate/Area] mL/min/{1.73_m2} Normal >60 [facility] Comment on above: Result Comment: >60 mL/min/1.73m2 EGFR, calc. for ages 18 and older using the MDRD formula (not corrected for weight), is valid for stable renal function. Performed By: #### C MP #### [facility] [address] [place] [address] GFR/1.73 sq M.predicted MDRD (S/P/Bld) [Vol rate/Area] mL/min/{1.73_m2} Normal >60 [facility] Comment on above: Result Comment: >60 mL/min/1.73m2 EGFR, calc. for ages 18 and older using the MDRD formula (not corrected for weight), is valid for stable renal function. Performed By: #### C MP #### [facility] [address] [place] [address] Glucose [Mass/Vol] 156 mg/dL Critically high 70-99 [facility] Comment on above: Performed By: #### C MP #### [facility] [address] [place] [address] Potassium [Moles/Vol] 3.3 mmol/L Low 3.4-4.9 [facility] Comment on above: Performed By: #### C MP #### [facility] [address] [place] [address] Sodium [Moles/Vol] 135 mmol/L Normal 135-144 [facility] Comment on above: Performed By: #### C MP #### [facility] [address] [place] [address] Urea nitrogen [Mass/Vol] 11 mg/dL Normal 8-23 [facility] Comment on above: Performed By: #### C MP #### [facility] [address] [place] [address] Anion gap [Moles/Vol] 14 mmol/L [facility] [place] Calcium [Mass/Vol] 8.8 mg/dL 8.5 - 9.9 mg/dL [place] Chloride [Moles/Vol] 95 mmol/L [place] CO2 [Moles/Vol] 26 mmol/L [facility] [place] Creatinine [Mass/Vol] 0.58 mg/dL 0.5 - 0.9 mg/d L [place] GFR >60.0 >60 [place] Comment on above: >60 mL/min/1.73m2 EG FR, calc. for ages 18 and older using the MDRD formula (not corrected for weight), is valid for stable renal function. GFR Non- >60.0 >60 [place] Comment on above: >60 mL/min/1.73m2 EG FR, calc. for ages 18 and older using the MDRD formula (not corrected for weight), is valid for stable renal function. Glucose [Mass/Vol] 156 mg/dL High 70 - 99 mg/dL [place] Interpretation and review of laboratory results Abnormal [place] Potassium [Moles/Vol] 3.3 mmol/L Low [place] Sodium [Moles/Vol] 135 mmol/L [place] Urea nitrogen [Mass/Vol] 11 mg/dL 8 - 23 mg/d L [place] Magnesiumon 11-18-2018 Magnesium [Mass/Vol] 1.8 mg/dL Normal 1.7-2.4 [facility] Comment on above: Performed By: #### C MP #### [facility] [address] [place] [address] Magnesium [Mass/Vol] 1.8 mg/dL 1.7 - 2.4 mg/dL [place] TSH w/out Reflexon 9 TSH Qn 0.880 uIU/mL Normal 0.440-3.86 [facility] Comment on above: Performed By: #### C MP #### [facility] [address] [place] [address] TSH without Reflexon 019 TSH Qn 0.880 m[IU]/L [place] CBC Auto Differentialon 10-22 Basophils (Bld) [#/Vol] 0.1 10*3/uL 0 - 0.2 K/u L [place] Basophils/100 WBC (Bld) 0.7 % [place] Eosinophils (Bld) [#/Vol] 0.4 10*3/uL 0 - 0.7 K /uL [place] Eosinophils/100 WBC (Bld) 2.8 % [place] Erythrocyte distribution wid th (RBC) [Ratio] 14.2 % 11.5 - 14.5 % [place] Hematocrit (Bld) [Volume fraction] 32.3 % Low 37 - 47 % [place] Hemoglobin (Bld) [Mass/Vol] 10.8 g/dL Low 12 - 16 g/dL [place] Interpretation and review of laboratory results Abnormal [place] Lymphocytes (Bld) [#/Vol] 2.6 10*3/uL 1 - 4.8 K /uL [place] Lymphocytes/100 WBC (Bld) 16.8 % [place] MCH (RBC) [Entitic mass] 30.3 pg 27 - 31.3 p g [place] MCHC (RBC) [Mass/Vol] 33.4 % 33 - 37 % [place] MCV (RBC) [Entitic vol] 90.5 fL 82 - 100 fL [place] Monocytes (Bld) [#/Vol] 1.3 10*3/uL High 0.2 - 0.8 K /uL [place] Monocytes/100 WBC (Bld) 8.3 % [place] Neutrophils Absolute 11.1 K/uL High 1.4 - 6.5 K/uL [place] Neutrophils/100 WBC (Bld) 71.4 % [place] Platelets (Bld) [#/Vol] 375 10*3/uL 130 - 400 K /uL [place] RBC (Bld) [#/Vol] 3.57 10*6/uL Low [place] WBC (Bld) [#/Vol] 15.5 10*3/uL High 4.8 - 10.8 K/uL [place] CBC With Platelet and Differ entialon 11-17-2018 Basophils (Bld) [#/Vol] 0.1 10*3/uL Normal 0.0-0.2 [facility] Comment on above: Performed By: #### C MP #### [facility] [address] [place] [address] Basophils/100 WBC (Bld) 0.7 % Normal [facility] Comment on above: Performed By: #### C MP #### [facility] [address] [place] [address] Eosinophils (Bld) [#/Vol] 0.4 10*3/uL Normal 0.0-0.7 [facility] Comment on above: Performed By: #### C MP #### [facility] [address] [place] [address] Eosinophils/100 WBC (Bld) 2.8 % Normal [facility] Comment on above: Performed By: #### C MP #### [facility] [address] [place] [address] Erythrocyte distribution wid th (RBC) [Ratio] 14.2 % Normal 11.5-14.5 [facility] [place] Comment on above: Performed By: #### C MP #### [facility] [address] [place] [address] Hematocrit (Bld) [Volume fraction] 32.3 % Low 3 7.0-47.0 [facility] Comment on above: Performed By: #### C MP #### [facility] [address] [place] [address] Hemoglobin (Bld) [Mass/Vol] 10.8 g/dL Low 12.0-16. 0 [facility] Comment on above: Performed By: #### C MP #### [facility] [address] [place] [address] Lymphocytes (Bld) [#/Vol] 2.6 10*3/uL Normal 1.0-4.8 [facility] Comment on above: Performed By: #### C MP #### [facility] [address] [place] [address] Lymphocytes/100 WBC (Bld) 16.8 % Normal [facility] Comment on above: Performed By: #### C MP #### [facility] [address] [place] [address] MCH (RBC) [Entitic mass] 30.3 pg Normal 27.0-31.3 [facility] Comment on above: Performed By: #### C MP #### [facility] [address] [place] [address] MCHC (RBC) [Mass/Vol] 33.4 % Normal 33.0-37.0 [facility] Comment on above: Performed By: #### C MP #### [facility] [address] [place] [address] MCV (RBC) [Entitic vol] 90.5 fL Normal 82.0-100.0 [facility] Comment on above: Performed By: #### C MP #### [facility] [address] [place] [address] Monocytes (Bld) [#/Vol] 1.3 10*3/uL Critically high 0.2-0. 8 [facility] Comment on above: Performed By: #### C MP #### [facility] [address] [place] [address] Monocytes/100 WBC (Bld) 8.3 % Normal [facility] Comment on above: Performed By: #### C MP #### [facility] [address] [place] [address] Neutrophils (Bld) [#/Vol] 11.1 10*3/uL Critically high 1.4 -6.5 [facility] Comment on above: Performed By: #### C MP #### [facility] [address] [place] [address] Neutrophils/100 WBC (Bld) 71.4 % Normal [facility] Comment on above: Performed By: #### C MP #### [facility] [address] [place] [address] Platelets (Bld) [#/Vol] 375 10*3/uL Normal 130-400 [facility] Comment on above: Performed By: #### C MP #### [facility] [address] [place] [address] RBC (Bld) [#/Vol] 3.57 10*6/uL Low 4.20-5.40 [facility] Comment on above: Performed By: #### C MP #### [facility] [address] [place] [address] WBC (Bld) [#/Vol] 15.5 10*3/uL Critically high 4.8-10.8 [facility] Comment on above: Performed By: #### C MP #### [facility] [address] [place] [address] High Sensitivity CRPon 11-17 High Sensitivity CRP 230.1 mg/L Critically high 0.0-5.0 [facility] Comment on above: Performed By: #### C MP #### [facility] [address] [place] [address] High sensitivity CRPon 11-17 CRP High Sensitivity 230.1 mg/L High 0 - 5 mg/L [facility] [place], [place] Interpretation and review of laboratory results Abnormal [facility] [place], [place] Sedimentation Rateon 019 Sedimentation Rate 50 mm Critically high 0-[address] [facility] Comment on above: Performed By: #### C MP #### [facility] [address] [place] [address] Interpretation and review of laboratory results Abnormal [facility] [place] , [place] Sed Rate 50 mm High 0 - 30 mm [facility] [place], [place] US DUP LOWER EXTREMITIES VAUGHN ATERAL VENOUSon 11-17-2018 NO DVT IDENTIFIED IN EITHER LOWER EXTREMITY. [place] O[place]seph, Chpo Incoming R adiant Results From [facility]/Pacs - 11/17/2018 8:05 AM EDT US DUP LOWER EXTREMITIES BILATERAL VENOUS : 11/16/2018 CLINICAL HISTORY: LEG SWELLING, PAIN, DVT SUSPECTED . COMPARISON: None available. Grayscale, compression, color and waveform Doppler analysis of both lower extremity deep venous systems was performed with augmentation. FINDINGS: There is no deep venous thrombosis, abnormal masses, fluid collections or other findings of concern identified within either lower extremity. IMPRESSION: NO DVT IDENTIFIED IN EITHER LOWER EXTREMITY. [place] US DUP LOWER EXTREMI TIES BILATERAL VENOUS : 11/16/2018 CLINICAL HISTORY: LEG SWELLING, PAIN, DVT SUSPECTED . COMPARISON: None available. Grayscale, compression, color and waveform Doppler analysis of both lower extremity deep venous systems was performed with augmentation. FINDINGS: There is no deep venous thrombosis, abnormal masses, fluid collections or other findings of concern identified within either lower extremity. [place], [place] Urine Cultureon 11-17-2018 Bacteria identified Cx Nom (U) No growth 24 hours [place], [place] OR DERED BY: ADDY COKER SOURCE: Urine Clean Catch COLLECTED: 11/15/18 19:05 ANTIBIOTICS AT DI.: RECEIVED : 11/15/18 19:05 [place] CBC With Platelet and Differ entialon 11-16-2018 Neutrophils (Bld) [#/Vol] 15.5 10*3/uL Critically high 1.4 -6.5 [facility] Comment on above: Performed By: #### P TT #### [facility] [address] [facility] [address] Basophils (Bld) [#/Vol] 0.2 10*3/uL Normal 0.0-0.2 [place] Comment on above: Performed By: #### P TT #### [facility] [address] [facility] [address] Basophils/100 WBC (Bld) 0.9 % Normal M [place] Comment on above: Performed By: #### P TT #### [facility] [address] [place] [address] Eosinophils (Bld) [#/Vol] 0.1 10*3/uL Normal 0.0-0.7 [place] Comment on above: Performed By: #### P TT #### [facility] [address] [place] [address] Eosinophils/100 WBC (Bld) 0.8 % Normal [place] Comment on above: Performed By: #### P TT #### [facility] [address] [place] [address] Erythrocyte distribution wid th (RBC) [Ratio] 14.4 % Normal 11.5-14.5 [place] Comment on above: Performed By: #### P TT #### [facility] [address] [place] [address] Hematocrit (Bld) [Volume fraction] 33.4 % Low 3 7.0-47.0 [place] Comment on above: Performed By: #### P TT #### [facility] [address] [place] [address] Hemoglobin (Bld) [Mass/Vol] 11.0 g/dL Low 12.0-16. 0 [place] Comment on above: Performed By: #### P TT #### [facility] [address] [place] [address] Lymphocytes (Bld) [#/Vol] 1.5 10*3/uL Normal 1.0-4.8 [place] Comment on above: Performed By: #### P TT #### [facility] [address] [place] [address] Lymphocytes/100 WBC (Bld) 7.9 % Normal [place] Comment on above: Performed By: #### P TT #### [facility] [address] [place] [address] MCH (RBC) [Entitic mass] 29.4 pg Normal 27.0-31.3 [place] Comment on above: Performed By: #### P TT #### [facility] [address] [place] [address] MCHC (RBC) [Mass/Vol] 32.9 % Low 33.0-37.0 [place] Comment on above: Performed By: #### P TT #### [facility] [address] [place] [address] MCV (RBC) [Entitic vol] 89.4 fL Normal 82.0-100.0 [place] Comment on above: Performed By: #### P TT #### [facility] [address] [facility] [address] Monocytes (Bld) [#/Vol] 1.3 10*3/uL Critically high 0.2-0. 8 [place] Comment on above: Performed By: #### P TT #### [facility] [address] [place] [address] Monocytes/100 WBC (Bld) 7.1 % Normal [place] Comment on above: Performed By: #### P TT #### [facility] [address] [place] [address] Neutrophils/100 WBC (Bld) 83.3 % Normal [place] Comment on above: Performed By: #### P TT #### [facility] [address] [place] [address] Platelets (Bld) [#/Vol] 304 10*3/uL Normal 130-400 [place] Comment on above: Performed By: #### P TT #### [facility] [address] [place] [address] RBC (Bld) [#/Vol] 3.74 10*6/uL Low 4.20-5.40 [place] Comment on above: Performed By: #### P TT #### [facility] [address] [place] [address] WBC (Bld) [#/Vol] 18.6 10*3/uL Critically high 4.8-10.8 [place] Comment on above: Performed By: #### P TT #### [facility] [address] [place] [address] CBC auto differentialon 10-22 Interpretation and review of laboratory results Abnormal [place] Neutrophils Absolute 15.5 K/uL High 1.4 - 6.5 K/uL [place] ECHO Complete 2D W Doppler W Coloron 11-16-2018 Transthoracic Echoca rdiography Report (TTE) Demographics Patient Name MERCY GANDHI Gender Female Patient Number [id number] Race Unknown Ethnicity Visit Number [id number] Room Number R238 Corporate ID Date of Study 11/16/2018 Referring Physician DO Natalia Dickens Date of 1935 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 Procedure Date Date: 11/16/2018 Start: 02:59 PM Study Location: Portable Technical Quality: Good visualization Indications:Syncope and Heart murmur. Patient Status: Routine Height: 61 inches Weight: 146 pounds BSA: 1.65 m^2 BMI: 27.59 kg/m^2 BP: 105/52 mmHg Conclusions Summary Normal tricuspid valve structure and function. Mild TR RVSP 41 mmHg Normal left ventricle structure and function. Left ventricular ejection fraction is visually estimated at 55%. E/A flow reversal noted. Suggestive of diastolic dysfunction. Signature Findings Left Ventricle Normal left ventricle structure and function. Left ventricular ejection fraction is visually estimated at 55%. E/A flow reversal noted. Suggestive of diastolic dysfunction. Right Ventricle Normal right ventricle structure and function. Normal right ventricle systolic pressure. Left Atrium Moderately dilated left atrium. Right Atrium Normal right atrium. Mitral Valve Mitral annular calcification is present. Trace MR Tricuspid Valve Normal tricuspid valve structure and function. Mild TR RVSP 41 mmHg Aortic Valve Aortic valve leaflets are moderately thickened. Pulmonic Valve Normal pulmonic valve structure and function. Pericardial Effusion No evidence of pericardial effusion. Pleural Effusion No evidence of pleural effusion. Aorta \ Miscellaneous The aorta is within normal limits. M-Mode Measurements (cm) LVIDd: 3.32 cm LVIDs: 2.35 cm IVSd: 1.36 cm IVSs: 1.73 cm LVPWd: 0.95 cm LVPWs: 1.55 cm Rt. Vent. Dimension: 2.54 cm AO Root Dimension: 2.35 cm ACS: 1.37 cm LA: 2.87 cm LVOT: 1.65 cm Doppler Measurements: AV Velocity:0.02 m/s MV Peak E-Wave: 0.9 m/s AV Peak Gradient: 19.45 mmHg MV Peak A-Wave: 1.23 m/s AV Mean Gradient: 10.3 mmHg AV Area (Continuity):1.55 cm^2 TR Velocity:3.08 m/s Estimated RAP:3 mmHg TR Gradient:37.86 mmHg RVSP:40.86 mmHg Valves Mitral Valve Peak E-Wave: 0.9 m/s Peak A-Wave: 1.23 m/s E/A Ratio: 0.73 Peak Gradient: 3.21 mmHg Deceleration Time: 229.7 msec Tissue Doppler E' Septal Velocity: 0.06 m/s E' Lateral Velocity: 0.09 m/s Aortic Valve Peak Velocity: 2.21 m/s Mean Velocity: 1.51 m/s Peak Gradient: 19.45 mmHg Mean Gradient: 10.3 mmHg Area (continuity): 1.55 cm^2 AV VTI: 45.32 cm Deceleration Time: 1102.1 msec AI P1/2t: 319.6 msec Cusp Separation: 1.37 cm Tricuspid Valve Estimated RVSP: 40.86 mmHg Estimated RAP: 3 mmHg TR Velocity: 3.08 m/s TR Gradient: 37.86 mmHg Pulmonic Valve Peak Velocity: 1 m/s Peak Gradient: 4.03 mmHg Estimated PASP: 40.86 mmHg MO ED Velocity: 1.27 m/s LVOT Peak Velocity: 1.4 m/s Mean Velocity: 1.05 m/s Peak Gradient: 7.8 mmHg Mean Gradient: 4.88 mmHg LVOT Diameter: 1.65 cm LVOT VTI: 32.88 cm Structures Left Atrium LA Dimension: 2.87 cm LA Area: 17.51 cm^2 LA/Aorta: 1.22 LA Volume/Index: 41.58 ml /25 m^2 Left Ventricle Diastolic Dimension: 3.32 cm Systolic Dimension: 2.35 cm Septum Diastolic: 1.36 cm Septum Systolic: 1.73 cm PW Diastolic: 0.95 cm PW Systolic: 1.55 cm FS: 29.2 % LV EDV/LV EDV Index: 44.9 ml/27 m^2 LV ESV/LV ESV Index: 19.22 ml/12 m^2 EF Calculated: 57.2 % LV Length: 7.41 cm LVOT Diameter: 1.65 cm Right Atrium RA Systolic Pressure: 3 mmHg Right Ventricle Diastolic Dimension: 2.54 cm RV Systolic Pressure: 40.86 mmHg Aorta/ Miscellaneous Aorta Aortic Root: 2.35 cm LVOT Diameter: 1.65 cm [facility] [place], [place] Joseph, Chpo Incoming C ardiovascular Results From [facility] - 11/16/2018 5:05 PM EDT Transthoracic Echocardiography Report (TTE) Demographics Patient Name MERCY GANDHI Gender Female Patient Number [id number] Race Unknown Ethnicity Visit Number [id number] Room Number R238 Corporate ID Date of Study 11/16/2018 Referring Physician Niki Vazquez DO Number Date of 1935 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 Procedure Date Date: 11/16/2018 Start: 02:59 PM Study Location: Portable Technical Quality: Good visualization Indications:Syncope and Heart murmur. Patient Status: Routine Height: 61 inches Weight: 146 pounds BSA: 1.65 m^2 BMI: 27.59 kg/m^2 BP: 105/52 mmHg Conclusions Summary Normal tricuspid valve structure and function. Mild TR RVSP 41 mmHg Normal left ventricle structure and function. Left ventricular ejection fraction is visually estimated at 55%. E/A flow reversal noted. Suggestive of diastolic dysfunction. Signature Findings Left Ventricle Normal left ventricle structure and function. Left ventricular ejection fraction is visually estimated at 55%. E/A flow reversal noted. Suggestive of diastolic dysfunction. Right Ventricle Normal right ventricle structure and function. Normal right ventricle systolic pressure. Left Atrium Moderately dilated left atrium. Right Atrium Normal right atrium. Mitral Valve Mitral annular calcification is present. Trace MR Tricuspid Valve Normal tricuspid valve structure and function. Mild TR RVSP 41 mmHg Aortic Valve Aortic valve leaflets are moderately thickened. Pulmonic Valve Normal pulmonic valve structure and function. Pericardial Effusion No evidence of pericardial effusion. Pleural Effusion No evidence of pleural effusion. Aorta \ Miscellaneous The aorta is within normal limits. M-Mode Measurements (cm) LVIDd: 3.32 cm LVIDs: 2.35 cm IVSd: 1.36 cm IVSs: 1.73 cm LVPWd: 0.95 cm LVPWs: 1.55 cm Rt. Vent. Dimension: 2.54 cm AO Root Dimension: 2.35 cm ACS: 1.37 cm LA: 2.87 cm LVOT: 1.65 cm Doppler Measurements: AV Velocity:0.02 m/s MV Peak E-Wave: 0.9 m/s AV Peak Gradient: 19.45 mmHg MV Peak A-Wave: 1.23 m/s AV Mean Gradient: 10.3 mmHg AV Area (Continuity):1.55 cm^2 TR Velocity:3.08 m/s Estimated RAP:3 mmHg TR Gradient:37.86 mmHg RVSP:40.86 mmHg Valves Mitral Valve Peak E-Wave: 0.9 m/s Peak A-Wave: 1.23 m/s E/A Ratio: 0.73 Peak Gradient: 3.21 mmHg Deceleration Time: 229.7 msec Tissue Doppler E' Septal Velocity: 0.06 m/s E' Lateral Velocity: 0.09 m/s Aortic Valve Peak Velocity: 2.21 m/s Mean Velocity: 1.51 m/s Peak Gradient: 19.45 mmHg Mean Gradient: 10.3 mmHg Area (continuity): 1.55 cm^2 AV VTI: 45.32 cm Deceleration Time: 1102.1 msec AI P1/2t: 319.6 msec Cusp Separation: 1.37 cm Tricuspid Valve Estimated RVSP: 40.86 mmHg Estimated RAP: 3 mmHg TR Velocity: 3.08 m/s TR Gradient: 37.86 mmHg Pulmonic Valve Peak Velocity: 1 m/s Peak Gradient: 4.03 mmHg Estimated PASP: 40.86 mmHg MO ED Velocity: 1.27 m/s LVOT Peak Velocity: 1.4 m/s Mean Velocity: 1.05 m/s Peak Gradient: 7.8 mmHg Mean Gradient: 4.88 mmHg LVOT Diameter: 1.65 cm LVOT VTI: 32.88 cm Structures Left Atrium LA Dimension: 2.87 cm LA Area: 17.51 cm^2 LA/Aorta: 1.22 LA Volume/Index: 41.58 ml /25 m^2 Left Ventricle Diastolic Dimension: 3.32 cm Systolic Dimension: 2.35 cm Septum Diastolic: 1.36 cm Septum Systolic: 1.73 cm PW Diastolic: 0.95 cm PW Systolic: 1.55 cm FS: 29.2 % LV EDV/LV EDV Index: 44.9 ml/27 m^2 LV ESV/LV ESV Index: 19.22 ml/12 m^2 EF Calculated: 57.2 % LV Length: 7.41 cm LVOT Diameter: 1.65 cm Right Atrium RA Systolic Pressure: 3 mmHg Right Ventricle Diastolic Dimension: 2.54 cm RV Systolic Pressure: 40.86 mmHg Aorta/ Miscellaneous Aorta Aortic Root: 2.35 cm LVOT Diameter: 1.65 cm [place] Microscopic Urinalysison Bacteria, UA Negative /HPF [place], [place] Epi Cells 3-5 /HPF [place] Interpretation and review of laboratory results Abnormal [place], [place] RBC (U) [#/Vol] 3-5 Abnormal [facility] Jos[place], [place] Renal Epithelial, Urine 0-2 Abnormal /HPF M [place], [place] WBC, UA None seen [place] US CAROTID ARTERY BILATERALo n 11-16-2018 Peak systolic veloci ties, ICA/CCA ratios and antegrade vertebral artery flow as above. See above for details of the examination and below for internal carotid artery interpretation guidelines. 1. Elevated peak systolic velocity involving the proximal and mid right internal carotid artery falling within the estimated luminal stenosis range of 50-69%. 2. Elevated peak systolic velocity of the proximal and mid left internal carotid artery falling within the estimated luminal stenosis range of 50-69%. GOSINK CRITERIA Diameter PSV t EDV t PSV EDV Stenosis Site % cm/sec cm/sec ICA/CCA ICA/CCA 0-49 <124 <40 <2:1 --- --- 50-69 125-225 40-100 >2:1 --- --- 70-89 225-325 >100 >4:1 >5:1 --- 90%+ >325 >100 >4:1 >9:1 Damped resistive CCA >95% May be May be Damped --- Damped resistive CCA decreased decreased resistive CCA [place], [place] Joseph, Chpo Incoming R adiant Results From [facility] - 11/16/2018 10:40 AM EDT Patient : 1935 Age: 83 years Gender: Female Order Date: 11/15/2018 6:15 PM EXAM: US CAROTID ARTERY BILATERAL NUMBER OF IMAGES: 68 INDICATION: bruits. sycnope. COMPARISON: None FINDINGS: Right side: Proximal common carotid artery peak systolic velocity is 106.0 centimeters per second Mid, common carotid artery peak systolic velocity is 111.0 centimeters per second. Distal common carotid artery peak systolic velocity is 91.0 centimeters per second External carotid artery peak systolic velocity is 603.0 centimeters per second. Proximal internal carotid artery peak systolic velocity is 147.0 centimeters per second Mid internal carotid artery peak systolic velocity is 125.0 centimeters per second. Distal internal carotid artery peak systolic velocity is 73.7 centimeters per second Vertebral artery peak systolic velocity is 97.2 centimeters per second. Vertebral artery flow is antegrade ICA/CCA ratio is 1.32 Left side: Proximal common carotid artery peak systolic velocity is 123.0 centimeters per second Mid, common carotid artery peak systolic velocity is 120.0 centimeters per second. Distal common carotid artery peak systolic velocity is 118.0 centimeters per second. External carotid artery peak systolic velocity is 507.0 centimeters per second. Proximal internal carotid artery peak systolic velocity is 204.0 centimeters per second Mid internal carotid artery peak systolic velocity is 147.0 centimeters per second. Distal internal carotid artery peak systolic velocity is 124.0 centimeters per second Vertebral artery peak systolic velocity is 46.3 centimeters per second. Vertebral artery flow is antegrade ICA/CCA ratio is 1.69. Scattered areas of calcified and noncalcified plaque bilateral carotid arterial systems IMPRESSION: Peak systolic velocities, ICA/CCA ratios and antegrade vertebral artery flow as above. See above for details of the examination and below for internal carotid artery interpretation guidelines. 1. Elevated peak systolic velocity involving the proximal and mid right internal carotid artery falling within the estimated luminal stenosis range of 50-69%. 2. Elevated peak systolic velocity of the proximal and mid left internal carotid artery falling within the estimated luminal stenosis range of 50-69%. GOSINK CRITERIA Diameter PSV t EDV t PSV EDV Stenosis Site % cm/sec cm/sec ICA/CCA ICA/CCA 0-49 <124 <40 <2:1 --- --- 50-69 125-225 40-100 >2:1 --- --- 70-89 225-325 >100 >4:1 >5:1 --- 90%+ >325 >100 >4:1 >9:1 Damped resistive CCA >95% May be May be Damped --- Damped resistive CCA decreased decreased resistive CCA [facility] [place] Patient 5 : 1935 Age: 83 years Gender: Female Order Date: 11/15/2018 6:15 PM EXAM: US CAROTID ARTERY BILATERAL NUMBER OF IMAGES: 68 INDICATION: bruits. sycnope. COMPARISON: None FINDINGS: Right side: Proximal common carotid artery peak systolic velocity is 106.0 centimeters per second Mid, common carotid artery peak systolic velocity is 111.0 centimeters per second. Distal common carotid artery peak systolic velocity is 91.0 centimeters per second External carotid artery peak systolic velocity is 603.0 centimeters per second. Proximal internal carotid artery peak systolic velocity is 147.0 centimeters per second Mid internal carotid artery peak systolic velocity is 125.0 centimeters per second. Distal internal carotid artery peak systolic velocity is 73.7 centimeters per second Vertebral artery peak systolic velocity is 97.2 centimeters per second. Vertebral artery flow is antegrade ICA/CCA ratio is 1.32 Left side: Proximal common carotid artery peak systolic velocity is 123.0 centimeters per second Mid, common carotid artery peak systolic velocity is 120.0 centimeters per second. Distal common carotid artery peak systolic velocity is 118.0 centimeters per second. External carotid artery peak systolic velocity is 507.0 centimeters per second. Proximal internal carotid artery peak systolic velocity is 204.0 centimeters per second Mid internal carotid artery peak systolic velocity is 147.0 centimeters per second. Distal internal carotid artery peak systolic velocity is 124.0 centimeters per second Vertebral artery peak systolic velocity is 46.3 centimeters per second. Vertebral artery flow is antegrade ICA/CCA ratio is 1.69. Scattered areas of calcified and noncalcified plaque bilateral carotid arterial systems [place] US DUP LOWER EXTREMITIES VAUGHN ATERAL VENOUSon 11-16-2018 US DUP LOWER EXTREMITIES BILATERAL VENOUS US DUP LOWER EXTREMITIES BILATERAL VENOUS : 11/16/2018 CLINICAL HISTORY: LEG SWELLING, PAIN, DVT SUSPECTED . COMPARISON: None available. Grayscale, compression, color and waveform Doppler analysis of both lower extremity deep venous systems was performed with augmentation. FINDINGS: There is no deep venous thrombosis, abnormal masses, fluid collections or other findings of concern identified within either lower extremity. IMPRESSION: NO DVT IDENTIFIED IN EITHER LOWER EXTREMITY. Interpreted by: Jesus De Souza MD Signed by: Jesus De Souza MD 11/17/18 Final result Normal [facility] Urine Microscopicon 11-17-19 19 Bacteria LM.HPF (Urine sed) [#/Area] Negative Normal [facility] Comment on above: Performed By: #### P TT #### [facility] [address] [place] [address] Epithelial cells LM Ql (Urine sed) 3-5 Normal [facility] Comment on above: Performed By: #### P TT #### [facility] [address] [place] [address] RBC (U) [#/Vol] 3-5 Abnormal 0-2 [facility] Comment on above: Performed By: #### P TT #### [facility] [address] [place] [address] Urine Renal Epithelial 0-2 Abnormal [facility] Comment on above: Performed By: #### P TT #### [facility] [address] [place] [address] WBC (U) [#/Vol] None seen Normal 0-5 [facility] Comment on above: Performed By: #### P TT #### [facility] [address] [place] [address] XR CHEST PORTABLEon 11-17-19 19 Joseph, Chpo Incoming R adiant Results From [facility] - 11/16/2018 10:21 AM EDT EXAMINATION: XR CHEST PORTABLE CLINICAL HISTORY: fever . History of back surgery. COMPARISONS: None available. FINDINGS: Single AP portable view the chest obtained on November 15, 2018 at 2124 hours. The heart is not enlarged. Mediastinum is not widened. Calcified aorta is not dilated. Lungs are clear. The chest wall is unremarkable. CONCLUSION: NO ACUTE PROCESS [facility], [place] EXAMINATION: XR CHES T PORTABLE CLINICAL HISTORY: fever . History of back surgery. COMPARISONS: None available. FINDINGS: Single AP portable view the chest obtained on November 15, 2018 at 2124 hours. The heart is not enlarged. Mediastinum is not widened. Calcified aorta is not dilated. Lungs are clear. The chest wall is unremarkable. CONCLUSION: NO ACUTE PROCESS [facility], [place] CBC Auto Differentialon 10-22 Anisocytosis Ql (Bld) 1+ [place] [facility], [place] Bands Relative 4 % Low 5 - 11 % [facility], [place] Basophils (Bld) [#/Vol] 0.0 10*3/uL 0 - 0.2 K/u L [place] Basophils/100 WBC (Bld) 0.6 % [place] Eosinophils (Bld) [#/Vol] 0.0 10*3/uL 0 - 0.7 K /uL [place] Eosinophils/100 WBC (Bld) 0.9 % [place] Erythrocyte distribution wid th (RBC) [Ratio] 14.6 % High 11.5 - 14.5 % [place] Hematocrit (Bld) [Volume fraction] 33.3 % Low 37 - 47 % [place] Hemoglobin (Bld) [Mass/Vol] 10.9 g/dL Low 12 - 16 g/dL [place] Interpretation and review of laboratory results Abnormal [place] Lymphocytes (Bld) [#/Vol] 3.5 10*3/uL 1 - 4.8 K /uL [place] Lymphocytes/100 WBC (Bld) 17.0 % [place] MCH (RBC) [Entitic mass] 29.8 pg 27 - 31.3 p g [place] MCHC (RBC) [Mass/Vol] 32.9 % Low 33 - 37 % [place] MCV (RBC) [Entitic vol] 90.7 fL 82 - 100 fL [place] Microcytes 1+ [place] Monocytes (Bld) [#/Vol] 0.0 10*3/uL Low 0.2 - 0.8 K /uL [place] Monocytes/100 WBC (Bld) 7.7 % M [place] Neutrophils Absolute 17.3 K/uL High 1.4 - 6.5 K/uL [place] Neutrophils/100 WBC (Bld) 79.0 % [place] PLATELET SLIDE REVIEW Normal [place] Platelets (Bld) [#/Vol] 315 10*3/uL 130 - 400 K /uL [place] RBC (Bld) [#/Vol] 3.67 10*6/uL Low [place] WBC (Bld) [#/Vol] 20.8 10*3/uL High 4.8 - 10.8 K/uL [place] CBC With Platelet No Differe ntialon 11-15-2018 Erythrocyte distribution wid th (RBC) [Ratio] 14.5 % Normal 11.5-14.5 [facility] [place] Comment on above: Performed By: #### P TT #### [facility] [address] [place] [address] Hematocrit (Bld) [Volume fraction] 36.9 % Low 3 7.0-47.0 [facility] Comment on above: Performed By: #### P TT #### [facility] [address] [place] [address] Hemoglobin (Bld) [Mass/Vol] 11.9 g/dL Low 12.0-16. 0 [facility] [facility] Comment on above: Performed By: #### P TT #### [facility] [address] [place] [address] MCH (RBC) [Entitic mass] 29.4 pg Normal 27.0-31.3 [facility] Comment on above: Performed By: #### P TT #### [facility] [address] [place] [address] MCHC (RBC) [Mass/Vol] 32.3 % Low 33.0-37.0 [facility] Comment on above: Performed By: #### P TT #### [facility] [address] [place] [address] MCV (RBC) [Entitic vol] 91.1 fL Normal 82.0-100.0 [facility] Comment on above: Performed By: #### P TT #### [facility] [address] [place] [address] Platelets (Bld) [#/Vol] 341 10*3/uL Normal 130-400 [facility] Comment on above: Performed By: #### P TT #### [facility] [address] [place] [address] RBC (Bld) [#/Vol] 4.05 10*6/uL Low 4.20-5.40 [facility] Comment on above: Performed By: #### P TT #### [facility] [address] [place] [address] WBC (Bld) [#/Vol] 19.8 10*3/uL Critically high 4.8-10.8 [facility] Comment on above: Performed By: #### P TT #### [facility] [address] [place] [address] CBC With Platelet and Differ entialon 11-15-2018 Anisocytosis Ql (Bld) 1+ Normal [facility] Comment on above: Performed By: #### P TT #### [facility] [address] [place] [address] Bands 4 % Low 5-11 [facility] Comment on above: Performed By: #### P TT #### [facility] [address] [place] [address] Basophils (Bld) [#/Vol] 0.0 10*3/uL Normal 0.0-0.2 [facility] Comment on above: Performed By: #### P TT #### [facility] [address] [place] [address] Basophils/100 WBC (Bld) 0.6 % Normal [facility] Comment on above: Performed By: #### P TT #### [facility] [address] [place] [address] Eosinophils (Bld) [#/Vol] 0.0 10*3/uL Normal 0.0-0.7 [facility] Comment on above: Performed By: #### P TT #### [facility] [address] [place] [address] Eosinophils/100 WBC (Bld) 0.9 % Normal [facility] Comment on above: Performed By: #### P TT #### [facility] [address] [place] [address] Lymphocytes (Bld) [#/Vol] 3.5 10*3/uL Normal 1.0-4.8 [facility] Comment on above: Performed By: #### P TT #### [facility] [address] [place] [address] Lymphocytes/100 WBC (Bld) 17.0 % Normal [facility] Comment on above: Performed By: #### P TT #### [facility] [address] [place] [address] Microcytic 1+ Normal [facility] Comment on above: Performed By: #### P TT #### [facility] [address] [place] [address] Monocytes (Bld) [#/Vol] 0.0 10*3/uL Low 0.2-0.8 [facility] Comment on above: Performed By: #### P TT #### [facility] [address] [place] [address] Monocytes/100 WBC (Bld) 7.7 % Normal [facility] Comment on above: Performed By: #### P TT #### [facility] [address] [place] [address] Neutrophils (Bld) [#/Vol] 17.3 10*3/uL Critically high 1.4 -6.5 [facility] Comment on above: Performed By: #### P TT #### [facility] [address] [place] [address] Neutrophils/100 WBC (Bld) 79.0 % Normal [facility] Comment on above: Performed By: #### P TT #### [facility] [address] [place] [address] Platelet Slide Review Normal Normal [facility] Comment on above: Performed By: #### P TT #### [facility] [address] [place] [address] Erythrocyte distribution width (RBC) [Ratio] 14.6 % Critically high 11.5-14.5 [facility] Comment on above: Performed By: #### P TT #### [facility] [address] [place] [address] Hematocrit (Bld) [Volume fraction] 33.3 % Low 3 7.0-47.0 [facility] Comment on above: Performed By: #### P TT #### [facility] [address] [place] [address] Hemoglobin (Bld) [Mass/Vol] 10.9 g/dL Low 12.0-16. 0 [facility] Comment on above: Performed By: #### P TT #### [facility] [address] [place] [address] MCH (RBC) [Entitic mass] 29.8 pg Normal 27.0-31.3 [facility] Comment on above: Performed By: #### P TT #### [facility] [address] [place] [address] MCHC (RBC) [Mass/Vol] 32.9 % Low 33.0-37.0 [facility] Comment on above: Performed By: #### P TT #### [facility] [address] [place] [address] MCV (RBC) [Entitic vol] 90.7 fL Normal 82.0-100.[address] [facility] Comment on above: Performed By: #### P TT #### [facility] [address] [place] [address] Platelets (Bld) [#/Vol] 315 10*3/uL Normal 130-400 [facility] Comment on above: Performed By: #### P TT #### [facility] [address] [place] [address] RBC (Bld) [#/Vol] 3.67 10*6/uL Low 4.20-5.40 [facility] Comment on above: Performed By: #### P TT #### [facility] [address] [place] [address] WBC (Bld) [#/Vol] 20.8 10*3/uL Critically high 4.8-10.8 [facility] Comment on above: Performed By: #### P TT #### [facility] [address] [place] [address] Comprehensive Metabolic Pane l reflex Mgon 11-15-2018 Albumin [Mass/Vol] 3.3 g/dL Low 3.5-4.6 [facility] Comment on above: Performed By: #### P TT #### [facility] [address] [place] [address] ALP [Catalytic activity/Vol] 71 U/L Normal 40-130 [facility] Comment on above: Performed By: #### P TT #### [facility] [address] [place] [address] ALT [Catalytic activity/Vol] 12 U/L Normal 0-33 [facility] Comment on above: Performed By: #### P TT #### [facility] [address] [place] [address] Anion gap [Moles/Vol] 11 mmol/L Normal 9-15 [facility] Comment on above: Performed By: #### P TT #### [facility] [address] [place] [address] AST [Catalytic activity/Vol] 28 U/L Normal 0-35 [facility] Comment on above: Performed By: #### P TT #### [facility] [address] [place] [address] Bilirubin [Mass/Vol] 0.4 mg/dL Normal 0.2-0.7 [facility] Comment on above: Performed By: #### P TT #### [facility] [address] [place] [address] Calcium [Mass/Vol] 9.1 mg/dL Normal 8.5-9.9 [facility] Comment on above: Performed By: #### P TT #### [facility] [address] [place] [address] Chloride [Moles/Vol] 98 mmol/L Normal 95-107 [facility] Comment on above: Performed By: #### P TT #### [facility] [address] [place] [address] CO2 [Moles/Vol] 27 mmol/L Normal 20-31 [facility] Comment on above: Performed By: #### P TT #### [facility] [address] [place] [address] Creatinine [Mass/Vol] 0.59 mg/dL Normal 0.50-0.90 [facility] Comment on above: Performed By: #### P TT #### [facility] [address] [place] [address] GFR/1.73 sq M predicted jeanette g blacks MDRD (S/P/Bld) [Vol rate/Area] mL/min/{1.73_m2} Normal >60 [facility] Comment on above: Result Comment: >60 mL/min/1.73m2 EGFR, calc. for ages 18 and older using the MDRD formula (not corrected for weight), is valid for stable renal function. Performed By: #### P TT #### [facility] [address] [place] [address] GFR/1.73 sq M.predicted MDRD (S/P/Bld) [Vol rate/Area] mL/min/{1.73_m2} Normal >60 [facility] Comment on above: Result Comment: >60 mL/min/1.73m2 EGFR, calc. for ages 18 and older using the MDRD formula (not corrected for weight), is valid for stable renal function. Performed By: #### P TT #### [facility] [address] [place] [address] Globulin (S) [Mass/Vol] 3.2 g/dL Normal 2.3-3.[address] [facility] Comment on above: Performed By: #### P TT #### [facility] [address] [place] [address] Glucose [Mass/Vol] 123 mg/dL Critically high 70-[address] [facility] Comment on above: Performed By: #### P TT #### [facility] [address] [place] [address] Potassium reflex Mg 3.8 mEq/L Normal 3.4-4.9 [facility] Comment on above: Performed By: #### P TT #### [facility] [address] [place] [address] Protein [Mass/Vol] 6.5 g/dL Normal 6.3-8.0 [facility] Comment on above: Performed By: #### P TT #### [facility] [address] [place] [address] Sodium [Moles/Vol] 136 mmol/L Normal 135-144 [facility] Comment on above: Performed By: #### P TT #### [facility] [address] [place] [address] Urea nitrogen [Mass/Vol] 6 mg/dL Low 8-23 [facility] Comment on above: Performed By: #### P TT #### [facility] [address] [place] [address] Culture, Blood 2on 9 Culture, Blood 2 OR DERED BY: ADDY COKER SOURCE: Blood COLLECTED: 11/15/18 16:37 ANTIBIOTICS AT DI.: RECEIVED : 11/15/18 16:42 Culture, Blood 2 FINAL 11/20/18 18:15 No growth after 5 days of incubation. Normal [facility] Comment on above: Performed By: #### C MP #### [facility] [address] [place] [address] Culture, Urineon 11-15-2018 Culture, Urine OR DERED BY: ADDY COKER SOURCE: Urine Clean Catch COLLECTED: 11/15/18 19:05 ANTIBIOTICS AT DI.: RECEIVED : 11/15/18 19:05 Culture, Urine FINAL 11/17/18 07:28 No growth 24 hours Normal [facility] Comment on above: Performed By: #### C MP #### [facility] [address] [place] [address] URINE RT REFLEX TO CULTUREon 11-15-2018 Bilirubin Urine Negative Negative [place], [place] Blood, Urine TRACE Abnormal Negative [place], [place] Clarity, UA Clear Clear [place] Color, UA Yellow Straw/Yellow [place] Glucose, Ur Negative Negative mg/dL [place] Interpretation and review of laboratory results Abnormal [place] Ketones Ql (U) Negative Negative mg/dL [place] Leukocyte esterase Test stri p Ql (U) Negative Negative [place], [place] Nitrite, Urine Negative Negative [place] pH, UA 7.0 [place] Protein (U) [Mass/Vol] 30 mg/dL Abnormal Negative [place], [place] Specific [place], UA 1.014 [place] Urine Reflex to Culture YES M [place] Urobilinogen, Urine 0.2 <2.0 E.U./dL [place] US CAROTID ARTERY BILATERALo n 11-15-2018 US CAROTID ARTERY BILATERAL Patient : 1935 Age: 83 years Gender: Female Order Date: 11/15/2018 6:15 PM EXAM: US CAROTID ARTERY BILATERAL NUMBER OF IMAGES: 68 INDICATION: bruits. sycnope. COMPARISON: None FINDINGS: Right side: Proximal common carotid artery peak systolic velocity is 106.0 centimeters per second Mid, common carotid artery peak systolic velocity is 111.0 centimeters per second. Distal common carotid artery peak systolic velocity is 91.0 centimeters per second External carotid artery peak systolic velocity is 603.0 centimeters per second. Proximal internal carotid artery peak systolic velocity is 147.0 centimeters per second Mid internal carotid artery peak systolic velocity is 125.0 centimeters per second. Distal internal carotid artery peak systolic velocity is 73.7 centimeters per second Vertebral artery peak systolic velocity is 97.2 centimeters per second. Vertebral artery flow is antegrade ICA/CCA ratio is 1.32 Left side: Proximal common carotid artery peak systolic velocity is 123.0 centimeters per second Mid, common carotid artery peak systolic velocity is 120.0 centimeters per second. Distal common carotid artery peak systolic velocity is 118.0 centimeters per second. External carotid artery peak systolic velocity is 507.0 centimeters per second. Proximal internal carotid artery peak systolic velocity is 204.0 centimeters per second Mid internal carotid artery peak systolic velocity is 147.0 centimeters per second. Distal internal carotid artery peak systolic velocity is 124.0 centimeters per second Vertebral artery peak systolic velocity is 46.3 centimeters per second. Vertebral artery flow is antegrade ICA/CCA ratio is 1.69. Scattered areas of calcified and noncalcified plaque bilateral carotid arterial systems IMPRESSION: Peak systolic velocities, ICA/CCA ratios and antegrade vertebral artery flow as above. See above for details of the examination and below for internal carotid artery interpretation guidelines. 1. Elevated peak systolic velocity involving the proximal and mid right internal carotid artery falling within the estimated luminal stenosis range of 50-69%. 2. Elevated peak systolic velocity of the proximal and mid left internal carotid artery falling within the estimated luminal stenosis range of 50-69%. GOSINK CRITERIA Diameter PSV t EDV t PSV EDV Stenosis Site % cm/sec cm/sec ICA/CCA ICA/CCA 0-49 <124 <40 <2:1 --- --- 50-69 125-225 40-100 >2:1 --- --- 70-89 225-325 >100 >4:1 >5:1 --- 90%+ >325 >100 >4:1 >9:1 Damped resistive CCA >95% May be May be Damped --- Damped resistive CCA decreased decreased resistive CCA Interpreted by: Mohsen Childers MD Signed by: Mohsen Childers MD 11/16/18 Final result Normal [facility] Urinalysis, reflex to cultur kendall 11-15-2018 Bilirubin Ql (U) Negative Normal Negative [facility] Comment on above: Performed By: #### P TT #### [facility] [address] [address] Clarity (U) Clear Normal Clear [facility] Comment on above: Performed By: #### P TT #### [facility] [address] [place] [address] Color (U) Yellow Normal Straw/Isabela [facility] Comment on above: Performed By: #### P TT #### [facility] [address] [place] [address] Glucose Ql (U) Negative Normal Negative [facility] Comment on above: Performed By: #### P TT #### [facility] [address] [place] [address] Hemoglobin Ql (U) TRACE Abnormal Negative [facility] Comment on above: Performed By: #### P TT #### [facility] [address] [place] [address] Ketones Ql (U) Negative Normal Negative [facility] Comment on above: Performed By: #### P TT #### [facility] [address] [place] [address] Leukocyte esterase Test stri p Ql (U) Negative Normal Negative [facility] Comment on above: Performed By: #### P TT #### [facility] [address] [place] [address] Nitrite Ql (U) Negative Normal Negative [facility] Comment on above: Performed By: #### P TT #### [facility] [address] [place] [address] pH (U) 7.0 [pH] Normal 5.0-9.0 [facility] Comment on above: Performed By: #### P TT #### [facility] [address] [place] [address] Protein Ql (U) 30 mg/dL Abnormal Negative [facility] Comment on above: Performed By: #### P TT #### [facility] [address] [place] [address] Specific gravity (U) [Rel density] 1.014 Normal 1.005-1.03 [facility] Comment on above: Performed By: #### P TT #### [facility] [address] [place] [address] Urine Reflexed to Culture YES Normal [facility] Comment on above: Performed By: #### P TT #### [facility] [address] [place] [address] Urobilinogen Qn (U) 0.2 {Juan'U}/dL Normal < 2.0 [facility] Comment on above: Performed By: #### P TT #### [facility] [address] [place] [address] XR CHEST PORTABLEon 11-16-19 19 XR CHEST PORTABLE EXAMINATION: XR CHES T PORTABLE CLINICAL HISTORY: fever . History of back surgery. COMPARISONS: None available. FINDINGS: Single AP portable view the chest obtained on November 15, 2018 at 2124 hours. The heart is not enlarged. Mediastinum is not widened. Calcified aorta is not dilated. Lungs are clear. The chest wall is unremarkable. CONCLUSION: NO ACUTE PROCESS Interpreted by: Pearl Varghese MD Signed by: Pearl Varghese MD 11/16/18 Final result Normal [facility] Basic Metabolic Panel Reflex Mgon 11-14-2018 Anion gap [Moles/Vol] 10 mmol/L Normal 9-15 [facility] Comment on above: Performed By: #### P T #### [facility] [address] [place] [address] Calcium [Mass/Vol] 8.4 mg/dL Low 8.5-9.9 [facility] Comment on above: Performed By: #### P T #### [facility] [address] [place] [address] Chloride [Moles/Vol] 100 mmol/L Normal 95-107 [facility] Comment on above: Performed By: #### P T #### [facility] [address] [place] [address] CO2 [Moles/Vol] 25 mmol/L Normal 20-31 [facility] Comment on above: Performed By: #### P T #### [facility] [address] [place] [address] Creatinine [Mass/Vol] 0.66 mg/dL Normal 0.50-0.90 [facility] Comment on above: Performed By: #### P T #### [facility] [address] [place] [address] GFR/1.73 sq M predicted jeanette g blacks MDRD (S/P/Bld) [Vol rate/Area] mL/min/{1.73_m2} Normal >60 [facility] Comment on above: Result Comment: >60 mL/min/1.73m2 EGFR, calc. for ages 18 and older using the MDRD formula (not corrected for weight), is valid for stable renal function. Performed By: #### P T #### [facility] [address] [place] [address] GFR/1.73 sq M.predicted MDRD (S/P/Bld) [Vol rate/Area] mL/min/{1.73_m2} Normal >60 [facility] Comment on above: Result Comment: >60 mL/min/1.73m2 EGFR, calc. for ages 18 and older using the MDRD formula (not corrected for weight), is valid for stable renal function. Performed By: #### P T #### [facility] [address] [place] [address] Glucose [Mass/Vol] 144 mg/dL Critically high 70-99 [facility] Comment on above: Performed By: #### P T #### [facility] [address] [place] [address] Potassium reflex Mg 4.1 mEq/L Normal 3.4-4.9 [facility] Comment on above: Performed By: #### P T #### [facility] [address] [place] [address] Sodium [Moles/Vol] 135 mmol/L Normal 135-144 [facility] Comment on above: Performed By: #### P T #### [facility] [address] [place] [address] Urea nitrogen [Mass/Vol] 6 mg/dL Low 8-23 [facility] Comment on above: Performed By: #### P T #### [facility] [address] [place] [address] CBC With Platelet and Differ entialon 11-14-2018 Basophils (Bld) [#/Vol] 0.1 10*3/uL Normal 0.0-0.2 [facility] Comment on above: Performed By: #### P T #### [facility] [address] [place] [address] Basophils/100 WBC (Bld) 0.5 % Normal [facility] Comment on above: Performed By: #### P T #### [facility] [address] [place] [address] Eosinophils (Bld) [#/Vol] 0.1 10*3/uL Normal 0.0-0.7 [facility] Comment on above: Performed By: #### P T #### [facility] [address] [place] [address] Eosinophils/100 WBC (Bld) 0.8 % Normal [facility] Comment on above: Performed By: #### P T #### [facility] [address] [place] [address] Erythrocyte distribution wid th (RBC) [Ratio] 14.1 % Normal 11.5-14.5 [facility] Comment on above: Performed By: #### P T #### [facility] [address] [place] [address] Hematocrit (Bld) [Volume fraction] 35.4 % Low 3 7.0-47.0 [facility] Comment on above: Performed By: #### P T #### [facility] [address] [place] [address] Hemoglobin (Bld) [Mass/Vol] 11.7 g/dL Low 12.0-16. 0 [facility] Comment on above: Performed By: #### P T #### [facility] [address] [place] [address] Lymphocytes (Bld) [#/Vol] 2.7 10*3/uL Normal 1.0-4.8 [facility] Comment on above: Performed By: #### P T #### [facility] [address] [place] [address] Lymphocytes/100 WBC (Bld) 15.7 % Normal [facility] Comment on above: Performed By: #### P T #### [facility] [address] [place] [address] MCH (RBC) [Entitic mass] 29.7 pg Normal 27.0-31.3 [facility] Comment on above: Performed By: #### P T #### [facility] [address] [place] [address] MCHC (RBC) [Mass/Vol] 33.1 % Normal 33.0-37.0 [facility] Comment on above: Performed By: #### P T #### [facility] [address] [place] [address] MCV (RBC) [Entitic vol] 89.6 fL Normal 82.0-100.0 [facility] Comment on above: Performed By: #### P T #### [facility] [address] [place] [address] Monocytes (Bld) [#/Vol] 1.4 10*3/uL Critically high 0.2-0. 8 [facility] Comment on above: Performed By: #### P T #### [facility] [address] [place] [address] Monocytes/100 WBC (Bld) 7.9 % Normal [facility] Comment on above: Performed By: #### P T #### [facility] [address] [place] [address] Neutrophils (Bld) [#/Vol] 12.8 10*3/uL Critically high 1.4 -6.5 [facility] Comment on above: Performed By: #### P T #### [facility] [address] [place] [address] Neutrophils/100 WBC (Bld) 75.1 % Normal [facility] Comment on above: Performed By: #### P T #### [facility] [address] [place] [address] Platelets (Bld) [#/Vol] 345 10*3/uL Normal 130-400 [facility] Comment on above: Performed By: #### P T #### [facility] [address] [place] [address] RBC (Bld) [#/Vol] 3.95 10*6/uL Low 4.20-5.40 [facility] Comment on above: Performed By: #### P T #### [facility] [address] [place] [address] WBC (Bld) [#/Vol] 17.0 10*3/uL Critically high 4.8-10.8 [facility] Comment on above: Performed By: #### P T #### [facility] [address] [place] [address] POCT Glucoseon 11-14-2018 Glucose [Mass/Vol] 116 mg/dL Critically high 60-[address] [facility] Comment on above: Performed By: #### P T #### [facility] [address] [place] [address] POC Performed on ACCU-CHEK Normal [facility] Comment on above: Performed By: #### P T #### [facility] [address] [place] [address] XR LUMBAR SPINE (2-3 VIEWS)o n 11-14-2018 XR LUMBAR SPINE (2-3 VIEWS) Patient : 1935 Age: 83 years Gender: Female Order Date: 11/14/2018 11:00 AM. Exam: XR LUMBAR SPINE (2-3 VIEWS) Number of Views: 4 Indication: Postop Comparison: 11/13/2018. Findings: Mild degenerative changes bilateral hips. No acute fracture. Posterior spinal fixation L3-L5. Vascular calcifications abdominal aorta. Surgical danna. Moderate degenerative changes L5-S1. IMPRESSION: Impression: 1. Mild bilateral osteoarthritis of the hips. 2. Posterior spinal fixation L3-L5. 3. Moderate degenerative changes L5-S1. Interpreted by: Mohsen Childers MD Signed by: Mohsen Childers MD 11/14/18 Final result Normal [facility] Basic Metabolic Panel Reflex Mgon 11-13-2018 Anion gap [Moles/Vol] 13 mmol/L Normal 9-15 [facility] Comment on above: Performed By: #### P T #### [facility] [address] [place] [address] Calcium [Mass/Vol] 9.0 mg/dL Normal 8.5-9.9 [facility] Comment on above: Performed By: #### P T #### [facility] [address] [place] [address] Chloride [Moles/Vol] 101 mmol/L Normal 95-107 [facility] Comment on above: Performed By: #### P T #### [facility] [address] [place] [address] CO2 [Moles/Vol] 24 mmol/L Normal 20-31 [facility] Comment on above: Performed By: #### P T #### [facility] [address] [place] [address] Creatinine [Mass/Vol] 0.62 mg/dL Normal 0.50-0.90 [facility] Comment on above: Performed By: #### P T #### [facility] [address] [place] [address] GFR/1.73 sq M predicted jeanette g blacks MDRD (S/P/Bld) [Vol rate/Area] mL/min/{1.73_m2} Normal >60 [facility] Comment on above: Result Comment: >60 mL/min/1.73m2 EGFR, calc. for ages 18 and older using the MDRD formula (not corrected for weight), is valid for stable renal function. Performed By: #### P T #### [facility] [address] [place] [address] GFR/1.73 sq M.predicted MDRD (S/P/Bld) [Vol rate/Area] mL/min/{1.73_m2} Normal >60 [facility] Comment on above: Result Comment: >60 mL/min/1.73m2 EGFR, calc. for ages 18 and older using the MDRD formula (not corrected for weight), is valid for stable renal function. Performed By: #### P T #### [facility] [address] [place] [address] Glucose [Mass/Vol] 136 mg/dL Critically high 70-[address] [facility] Comment on above: Performed By: #### P T #### [facility] [address] [place] [address] Potassium reflex Mg 3.6 mEq/L Normal 3.4-4.9 [facility] Comment on above: Performed By: #### P T #### [facility] [address] [place] [address] Sodium [Moles/Vol] 138 mmol/L Normal 135-144 [facility] Comment on above: Performed By: #### P T #### [facility] [address] [place] [address] Urea nitrogen [Mass/Vol] 7 mg/dL Low 8-23 [facility] Comment on above: Performed By: #### P T #### [facility] [address] [place] [address] CBC With Platelet No Differe ntialon 11-13-2018 Erythrocyte distribution wid th (RBC) [Ratio] 14.2 % Normal 11.5-14.5 [facility] [place] Comment on above: Performed By: #### P T #### [facility] [address] [place] [address] Hematocrit (Bld) [Volume fraction] 40.3 % Normal 37.0-47.0 [facility] [place] Comment on above: Performed By: #### P T #### [facility] [address] [place] [address] Hemoglobin (Bld) [Mass/Vol] 13.1 g/dL Normal 12.0-16. 0 [facility] Comment on above: Performed By: #### P T #### [facility] [address] [place] [address] MCH (RBC) [Entitic mass] 29.1 pg Normal 27.0-31.3 [facility] Comment on above: Performed By: #### P T #### [facility] [address] [place] [address] MCHC (RBC) [Mass/Vol] 32.4 % Low 33.0-37.0 [facility] Comment on above: Performed By: #### P T #### [facility] [address] [place] [address] MCV (RBC) [Entitic vol] 89.9 fL Normal 82.0-100.0 [facility] Comment on above: Performed By: #### P T #### [facility] [address] [place] [place] [address] Platelets (Bld) [#/Vol] 394 10*3/uL Normal 130-400 [facility] Comment on above: Performed By: #### P T #### [facility] [address] [place] [address] RBC (Bld) [#/Vol] 4.48 10*6/uL Normal 4.20-5.40 [facility] Comment on above: Performed By: #### P T #### [facility] [address] [place] [place] [address] WBC (Bld) [#/Vol] 11.8 10*3/uL Critically high 4.8-10.8 [facility] Comment on above: Performed By: #### P T #### [facility] [address] [place] [address] Culture, MRSA Screenon 11-13 Culture, MRSA Screen O RDERED BY: BRENNAN HERRON SOURCE: Nares COLLECTED: 11/13/18 09:29 ANTIBIOTICS AT DI.: RECEIVED : 11/13/18 09:29 Culture, MRSA Screen FINAL 11/14/18 08:02 No MRSA isolated Normal [facility] Comment on above: Performed By: #### P T #### [facility] [address] [facility] [address] FLUORO FOR SURGICAL PROCEDUR ESon 11-13-2018 FLUORO FOR SURGICAL PROCEDURES Patient : 1935 Age: 83 years Gender: Female Order Date: 11/13/2018 10:15 AM. Exam: FLUORO FOR SURGICAL PROCEDURES Number of Views: 12 Indication: Pain Comparison: MRI lumbar spine 11/05/2018. Findings: Surgical instruments posterior to the L3 L5 motion segment level. One instrument posterior to the L4-L5 intervertebral disc. Fluoroscopic time of 47.0 seconds. IMPRESSION: Impression: Surgical instrumentation location as above, fluoroscopic guidance, fluoroscopic time 47.0 seconds. Interpreted by: Mohsen Childers MD Signed by: Mohsen Childers MD 11/13/18 Final result Normal [facility] Surgical Specimenon 11-14-19 19 Surgical Specimen [facility] [address] [place], [place] [id number] FINAL SURGICAL PATHOLOGY REPORT Patient Name: HIRAM MADRID Accession No: [id number] Age Sex: 1935 Location: [facility] [id number] Account No: [id number] Collected: 11/13/2018 Med Rec No: [id number] Received: 11/14/2018 Attend Phys: LENNY CORRAL Completed: 11/15/2018 Perform Phys: LENNY CORRAL 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 ALIFA/ALIFA CLINICAL INFORMATION: Stenosis, radiculopathy, spondylosis, disc. SPECIMEN: Disc GROSS DESCRIPTION: Specimen received in formalin in a container labeled with patient's name and designated as spine . Specimen consists of multiple brownish-marti soft firm tissue fragments measuring in aggregate 3.0 x 2.0 x 0.4 cm. Sections representatives are submitted in two cassettes after brief decalcification. UVALDO/NIKKY CPT: 42164 X1 [id number] X1 STANLEY GRAFF M.D. 11/15/2018 Electronically signed out by Page 1 of 1 [facility] Comment on above: Performed By: #### P TT #### [facility] [address] [place] [address] Type and Screen Capture 3 sc rn cellon 11-13-2018 Type and Screen Capture 3 scrn cell PATIENT: MERCY GANDHI LOC: TATIANNA SUAREZ NON BILL# : [id number] : 1935 SEX: F ORDERED BY: GOPAL AMIN ORDERED : 11/13/2018 08:10 COLLECTED: 11/13/2018 09:24 ORDER : [id number] RECEIVED : 11/13/2018 09:24 TEST NAME RESULT UNITS RANGES ABN FL ST ABORH Capture A POS F Antibody 3 Cell Scrn Captu NEG F Normal [facility] Comment on above: Performed By: #### T S3C #### [facility] [address] [place] [address] XR SPINE ENTIRE (2-3 VIEWS)o n 11-13-2018 XR SPINE ENTIRE (2-3 VIEWS) Patient : 1935 Age: 83 years Gender: Female Order Date: 11/13/2018 8:00 AM. Exam: XR SPINE ENTIRE (2-3 VIEWS) Number of Views: 6 Indication: Scoliosis survey, preoperative, mid and lower back pain Comparison: Lumbar spine radiographs 11/05/2018 Findings: Thoracic aortic vascular calcifications. There is approximately 13 degrees convex right spinal curvature centered about the L3 vertebral body. Visualized lungs are unremarkable. Surgical clips right upper abdomen. Nonobstructive bowel gas pattern. Normal sagittal alignment incompletely characterized. Mild to moderate degenerative disc disease L3-L5. IMPRESSION: Impression: 1. Approximately 13 degrees convex right spinal curvature centered about L3 vertebral body. 2. Mild to moderate degenerative disc disease L3-L5. 3. Vascular calcifications thoracic aorta Interpreted by: Mohsen Childers MD Signed by: Mohsen Childers MD 11/13/18 Final result Normal [facility] MRI LUMBAR SPINE W WO CONTRA STon 11-05-2018 EXAMINATION: MRI LUM BAR SPINE W WO CONTRAST CLINICAL HISTORY: leg weakness hx surgery COMPARISONS: November 05, 2018 x-ray FINDINGS: Multisequence, multiplanar MRI of the lumbar spine was obtained, including imaging before and after intravenous administration of 15 mL ProHance. Examination is abnormal. There is large herniated disc fragment that appears to arisen from the L4-5 disc, left of midline and migrating in a cephalad direction into the left L4 lateral recess. In addition, there is evidence of a component of this disc herniation extending into the left L4 neural foramen, producing moderately severe left L4 foraminal stenosis. L4-5 disc is moderately narrowed. There is generalized disc bulging at L4-5. Right L4 foraminal stenosis is moderate. There is advanced apophyseal joint arthrosis at L4-5. Postoperative changes, with wide laminectomy at L4, L5-S1 is incidentally noted. The operative site is widely patent, without central spinal canal stenosis. There is moderate narrowing of the L3-4 intervertebral disc, with generalized disc bulging. In addition, there is superimposed L3-4 disc protrusion toward the left, entering the left L3 neural foramen, producing moderately severe left L3 foraminal stenosis. In addition, a combination of facet hypertrophy, thickening of ligamenta flava and disc bulging is producing moderately severe central spinal canal stenosis at L3-4. The L2-3 disc is moderately narrowed and shows generalized disc bulging without disc herniation. Spinal canal caliber at L2-3 is well-maintained. The L1-2 intervertebral level is unremarkable. Spinal canal at L1-L2 is normal. The L5-S1 disc shows mild generalized bulging. The operative site at L5-S1 is widely patent. Contrast-enhanced images show abnormal enhancement of the coverings of the spinal canal at the operative site, without abnormal enhancement within the thecal sac. The granulation tissue at the laminectomy site shows pronounced increased enhancement. The herniated disc fragment within the left L4 lateral recess shows enhancement of the soft tissues around it, without enhancement of the disc fragment itself. This does not have the appearance of a neurinoma or nerve sheath tumor. CONCLUSION: LARGE HERNIATED DISC FRAGMENT WITHIN THE LEFT L4 LATERAL RECESS HAVING ARISEN FROM THE L4-5 INTERVERTEBRAL DISC, RESULTING IN PRONOUNCED LEFT L4 LATERAL RECESS STENOSIS. IN ADDITION, THERE IS MODERATELY SEVERE LEFT L4 FORAMINAL STENOSIS. THERE IS MODERATELY SEVERE LEFT L3 FORAMINAL STENOSIS, WITH MODERATELY SEVERE L3-4 CENTRAL SPINAL CANAL STENOSIS. THE OPERATIVE SITE AT L4, L5 AND S1 IS WIDELY PATENT. THERE ARE NO SIGNS OF UNDERLYING PATHOLOGY OR RECENT INJURY. [facility]- [place], [place] Joseph, Chpo Incoming R adiant Results From Aerospike/Applaud - 11/05/2018 3:07 PM EDT EXAMINATION: MRI LUMBAR SPINE W WO CONTRAST CLINICAL HISTORY: leg weakness hx surgery COMPARISONS: November 05, 2018 x-ray FINDINGS: Multisequence, multiplanar MRI of the lumbar spine was obtained, including imaging before and after intravenous administration of 15 mL ProHance. Examination is abnormal. There is large herniated disc fragment that appears to arisen from the L4-5 disc, left of midline and migrating in a cephalad direction into the left L4 lateral recess. In addition, there is evidence of a component of this disc herniation extending into the left L4 neural foramen, producing moderately severe left L4 foraminal stenosis. L4-5 disc is moderately narrowed. There is generalized disc bulging at L4-5. Right L4 foraminal stenosis is moderate. There is advanced apophyseal joint arthrosis at L4-5. Postoperative changes, with wide laminectomy at L4, L5-S1 is incidentally noted. The operative site is widely patent, without central spinal canal stenosis. There is moderate narrowing of the L3-4 intervertebral disc, with generalized disc bulging. In addition, there is superimposed L3-4 disc protrusion toward the left, entering the left L3 neural foramen, producing moderately severe left L3 foraminal stenosis. In addition, a combination of facet hypertrophy, thickening of ligamenta flava and disc bulging is producing moderately severe central spinal canal stenosis at L3-4. The L2-3 disc is moderately narrowed and shows generalized disc bulging without disc herniation. Spinal canal caliber at L2-3 is well-maintained. The L1-2 intervertebral level is unremarkable. Spinal canal at L1-L2 is normal. The L5-S1 disc shows mild generalized bulging. The operative site at L5-S1 is widely patent. Contrast-enhanced images show abnormal enhancement of the coverings of the spinal canal at the operative site, without abnormal enhancement within the thecal sac. The granulation tissue at the laminectomy site shows pronounced increased enhancement. The herniated disc fragment within the left L4 lateral recess shows enhancement of the soft tissues around it, without enhancement of the disc fragment itself. This does not have the appearance of a neurinoma or nerve sheath tumor. CONCLUSION: LARGE HERNIATED DISC FRAGMENT WITHIN THE LEFT L4 LATERAL RECESS HAVING ARISEN FROM THE L4-5 INTERVERTEBRAL DISC, RESULTING IN PRONOUNCED LEFT L4 LATERAL RECESS STENOSIS. IN ADDITION, THERE IS MODERATELY SEVERE LEFT L4 FORAMINAL STENOSIS. THERE IS MODERATELY SEVERE LEFT L3 FORAMINAL STENOSIS, WITH MODERATELY SEVERE L3-4 CENTRAL SPINAL CANAL STENOSIS. THE OPERATIVE SITE AT L4, L5 AND S1 IS WIDELY PATENT. THERE ARE NO SIGNS OF UNDERLYING PATHOLOGY OR RECENT INJURY. [place], [place] MRI LUMBAR SPINE W WO CONTRAST EXAMINATION: MRI LUMBAR SPINE W WO CONTRAST CLINICAL HISTORY: leg weakness hx surgery COMPARISONS: November 05, 2018 x-ray FINDINGS: Multisequence, multiplanar MRI of the lumbar spine was obtained, including imaging before and after intravenous administration of 15 mL ProHance. Examination is abnormal. There is large herniated disc fragment that appears to arisen from the L4-5 disc, left of midline and migrating in a cephalad direction into the left L4 lateral recess. In addition, there is evidence of a component of this disc herniation extending into the left L4 neural foramen, producing moderately severe left L4 foraminal stenosis. L4-5 disc is moderately narrowed. There is generalized disc bulging at L4-5. Right L4 foraminal stenosis is moderate. There is advanced apophyseal joint arthrosis at L4-5. Postoperative changes, with wide laminectomy at L4, L5-S1 is incidentally noted. The operative site is widely patent, without central spinal canal stenosis. There is moderate narrowing of the L3-4 intervertebral disc, with generalized disc bulging. In addition, there is superimposed L3-4 disc protrusion toward the left, entering the left L3 neural foramen, producing moderately severe left L3 foraminal stenosis. In addition, a combination of facet hypertrophy, thickening of ligamenta flava and disc bulging is producing moderately severe central spinal canal stenosis at L3-4. The L2-3 disc is moderately narrowed and shows generalized disc bulging without disc herniation. Spinal canal caliber at L2-3 is well-maintained. The L1-2 intervertebral level is unremarkable. Spinal canal at L1-L2 is normal. The L5-S1 disc shows mild generalized bulging. The operative site at L5-S1 is widely patent. Contrast-enhanced images show abnormal enhancement of the coverings of the spinal canal at the operative site, without abnormal enhancement within the thecal sac. The granulation tissue at the laminectomy site shows pronounced increased enhancement. The herniated disc fragment within the left L4 lateral recess shows enhancement of the soft tissues around it, without enhancement of the disc fragment itself. This does not have the appearance of a neurinoma or nerve sheath tumor. CONCLUSION: LARGE HERNIATED DISC FRAGMENT WITHIN THE LEFT L4 LATERAL RECESS HAVING ARISEN FROM THE L4-5 INTERVERTEBRAL DISC, RESULTING IN PRONOUNCED LEFT L4 LATERAL RECESS STENOSIS. IN ADDITION, THERE IS MODERATELY SEVERE LEFT L4 FORAMINAL STENOSIS. THERE IS MODERATELY SEVERE LEFT L3 FORAMINAL STENOSIS, WITH MODERATELY SEVERE L3-4 CENTRAL SPINAL CANAL STENOSIS. THE OPERATIVE SITE AT L4, L5 AND S1 IS WIDELY PATENT. THERE ARE NO SIGNS OF UNDERLYING PATHOLOGY OR RECENT INJURY. Interpreted by: Pearl Varghese MD Signed by: Pearl Varghese MD 11/05/18 Final result Normal [facility] Otheron 11-05-2018 Joseph, po Incoming R adiant Results From Aerospike/Applaud - 11/05/2018 1:21 PM EDT EXAMINATION: XR LUMBAR SPINE (MIN 4 VIEWS), XR CHEST (2 VW) CLINICAL HISTORY: lbp . Low back pain without specific injury. Chronic shortness of breath. COMPARISONS: None available. FINDINGS: Frontal and lateral views of chest were obtained. The heart is not enlarged. Calcified aorta is not dilated. Mediastinum is not widened or shifted. There is no active disease in the lungs. The chest wall is intact and unremarkable. 6 views of the lumbar spine were obtained. There is mild dextroscoliosis centered at L2-3. Lumbar vertebral alignment is otherwise unremarkable. There is mild to moderate vertebral body margin spurring at all levels, perhaps greatest at L3-4. There is mild/moderate narrowing of intervertebral space at L4-5. There is wide laminectomy at L4-L5 and S1. There is moderate apophyseal joint arthrosis, greatest L4-5. The heavily calcified aorta is not dilated. CONCLUSION: NO ACTIVE CARDIOPULMONARY DISEASE. DEGENERATIVE DISEASE AND POSTOPERATIVE FINDINGS, WITHOUT ACUTE SUPERIMPOSED ABNORMALITY. [place], [place] EXAMINATION: XR LUMB AR SPINE (MIN 4 VIEWS), XR CHEST (2 VW) CLINICAL HISTORY: lbp . Low back pain without specific injury. Chronic shortness of breath. COMPARISONS: None available. FINDINGS: Frontal and lateral views of chest were obtained. The heart is not enlarged. Calcified aorta is not dilated. Mediastinum is not widened or shifted. There is no active disease in the lungs. The chest wall is intact and unremarkable. 6 views of the lumbar spine were obtained. There is mild dextroscoliosis centered at L2-3. Lumbar vertebral alignment is otherwise unremarkable. There is mild to moderate vertebral body margin spurring at all levels, perhaps greatest at L3-4. There is mild/moderate narrowing of intervertebral space at L4-5. There is wide laminectomy at L4-L5 and S1. There is moderate apophyseal joint arthrosis, greatest L4-5. The heavily calcified aorta is not dilated. CONCLUSION: NO ACTIVE CARDIOPULMONARY DISEASE. DEGENERATIVE DISEASE AND POSTOPERATIVE FINDINGS, WITHOUT ACUTE SUPERIMPOSED ABNORMALITY. [place] XR CHEST (2 VW)on 11-05-2018 XR CHEST (2 VW) EXAMINATION: XR LUMB AR SPINE (MIN 4 VIEWS), XR CHEST (2 VW) CLINICAL HISTORY: lbp . Low back pain without specific injury. Chronic shortness of breath. COMPARISONS: None available. FINDINGS: Frontal and lateral views of chest were obtained. The heart is not enlarged. Calcified aorta is not dilated. Mediastinum is not widened or shifted. There is no active disease in the lungs. The chest wall is intact and unremarkable. 6 views of the lumbar spine were obtained. There is mild dextroscoliosis centered at L2-3. Lumbar vertebral alignment is otherwise unremarkable. There is mild to moderate vertebral body margin spurring at all levels, perhaps greatest at L3-4. There is mild/moderate narrowing of intervertebral space at L4-5. There is wide laminectomy at L4-L5 and S1. There is moderate apophyseal joint arthrosis, greatest L4-5. The heavily calcified aorta is not dilated. CONCLUSION: NO ACTIVE CARDIOPULMONARY DISEASE. DEGENERATIVE DISEASE AND POSTOPERATIVE FINDINGS, WITHOUT ACUTE SUPERIMPOSED ABNORMALITY. Interpreted by: Pearl Varghese MD Signed by: Pearl Varghese MD 11/05/18 Final result Normal [facility] XR LUMBAR SPINE (MIN 4 VIEWS )on 11-05-2018 XR LUMBAR SPINE (MIN 4 VIEWS) EXAMINATION: XR LUMBAR SPINE (MIN 4 VIEWS), XR CHEST (2 VW) CLINICAL HISTORY: lbp . Low back pain without specific injury. Chronic shortness of breath. COMPARISONS: None available. FINDINGS: Frontal and lateral views of chest were obtained. The heart is not enlarged. Calcified aorta is not dilated. Mediastinum is not widened or shifted. There is no active disease in the lungs. The chest wall is intact and unremarkable. 6 views of the lumbar spine were obtained. There is mild dextroscoliosis centered at L2-3. Lumbar vertebral alignment is otherwise unremarkable. There is mild to moderate vertebral body margin spurring at all levels, perhaps greatest at L3-4. There is mild/moderate narrowing of intervertebral space at L4-5. There is wide laminectomy at L4-L5 and S1. There is moderate apophyseal joint arthrosis, greatest L4-5. The heavily calcified aorta is not dilated. CONCLUSION: NO ACTIVE CARDIOPULMONARY DISEASE. DEGENERATIVE DISEASE AND POSTOPERATIVE FINDINGS, WITHOUT ACUTE SUPERIMPOSED ABNORMALITY. Interpreted by: Pearl Varghese MD Signed by: Pearl Varghese MD 11/05/18 Final result Normal [facility] APTTon 11-04-2018 aPTT Coag (Bld) [Time] 27.9 s [facility]- [place], [place] Comment on above: Effective 09/06/2018: Please note methodology and/or reference ranges have changed. aPTT - Heparin Therapeutic Range: 74.0 - 106 seconds C-Reactive Proteinon 019 CRP [Mass/Vol] 1.3 mg/L Normal 0.0-5.0 [facility] Comment on above: Performed By: #### C RP #### [facility] [address] [place] [address] CRP [Mass/Vol] 1.3 mg/L 0 - 5 mg/L [place], [place] CBC Auto Differentialon 10-21 Basophils (Bld) [#/Vol] 0.1 10*3/uL 0 - 0.2 K/u L [place], [place] Basophils/100 WBC (Bld) 1.1 % [place], [place] Eosinophils (Bld) [#/Vol] 0.2 10*3/uL 0 - 0.7 K /uL [place] Eosinophils/100 WBC (Bld) 1.3 % [place] Erythrocyte distribution wid th (RBC) [Ratio] 13.9 % 11.5 - 14.5 % [place], [place] Hematocrit (Bld) [Volume fraction] 41.3 % 37 - 47 % [place], [place] Hemoglobin (Bld) [Mass/Vol] 14.3 g/dL 12 - 16 g/dL [place] Interpretation and review of laboratory results Abnormal [place] Lymphocytes (Bld) [#/Vol] 3.5 10*3/uL 1 - 4.8 K /uL [place] Lymphocytes/100 WBC (Bld) 28.2 % [place] MCH (RBC) [Entitic mass] 30.5 pg 27 - 31.3 p g [place] MCHC (RBC) [Mass/Vol] 34.6 % 33 - 37 % [place], [place] MCV (RBC) [Entitic vol] 88.0 fL 82 - 100 fL [place] Monocytes (Bld) [#/Vol] 0.8 10*3/uL 0.2 - 0.8 K /uL [place] Monocytes/100 WBC (Bld) 6.8 % [place], [place] Neutrophils Absolute 7.7 K/uL High 1.4 - 6.5 K/uL [place] Neutrophils/100 WBC (Bld) 62.6 % [place] Platelets (Bld) [#/Vol] 435 10*3/uL High 130 - 400 K /uL [place] RBC (Bld) [#/Vol] 4.69 10*6/uL [place] WBC (Bld) [#/Vol] 12.4 10*3/uL High 4.8 - 10.8 K/uL [place] CBC With Platelet and Differ entialon 11-04-2018 Basophils (Bld) [#/Vol] 0.1 10*3/uL Normal 0.0-0.2 [facility] Comment on above: Performed By: #### C BCWD #### [facility] [address] [place] [address] Basophils/100 WBC (Bld) 1.1 % Normal [facility] Comment on above: Performed By: #### C BCWD #### [facility] [address] [place] [address] Eosinophils (Bld) [#/Vol] 0.2 10*3/uL Normal 0.0-0.7 [facility] Comment on above: Performed By: #### C BCWD #### [facility] [address] [place] [address] Eosinophils/100 WBC (Bld) 1.3 % Normal [facility] Comment on above: Performed By: #### C BCWD #### [facility] [address] [place] [address] Erythrocyte distribution wid th (RBC) [Ratio] 13.9 % Normal 11.5-14.5 [facility] [place] Comment on above: Performed By: #### C BCWD #### [facility] [address] [place] [address] Hematocrit (Bld) [Volume fraction] 41.3 % Normal 37.0-47.0 [facility] [place] Comment on above: Performed By: #### C BCWD #### [facility] [address] [place] [address] Hemoglobin (Bld) [Mass/Vol] 14.3 g/dL Normal 12.0-16. 0 [facility] Comment on above: Performed By: #### C BCWD #### [facility] [address] [place] [address] Lymphocytes (Bld) [#/Vol] 3.5 10*3/uL Normal 1.0-4.8 [facility] Comment on above: Performed By: #### C BCWD #### [facility] [address] [place] [address] Lymphocytes/100 WBC (Bld) 28.2 % Normal [facility] Comment on above: Performed By: #### C BCWD #### [facility] [address] [place] [address] MCH (RBC) [Entitic mass] 30.5 pg Normal 27.0-31.3 [facility] Comment on above: Performed By: #### C BCWD #### [facility] [address] [place] [address] MCHC (RBC) [Mass/Vol] 34.6 % Normal 33.0-37.0 [facility] Comment on above: Performed By: #### C BCWD #### [facility] [address] [place] [address] MCV (RBC) [Entitic vol] 88.0 fL Normal 82.0-100.0 [facility] Comment on above: Performed By: #### C BCWD #### [facility] [address] [place] [address] Monocytes (Bld) [#/Vol] 0.8 10*3/uL Normal 0.2-0.8 [facility] Comment on above: Performed By: #### C BCWD #### [facility] [address] [place] [address] Monocytes/100 WBC (Bld) 6.8 % Normal [facility] Comment on above: Performed By: #### C BCWD #### [facility] [address] [place] [place] [address] Neutrophils (Bld) [#/Vol] 7.7 10*3/uL Critically high 1.4- 6.5 [facility] Comment on above: Performed By: #### C BCWD #### [facility] [address] [place] [address] Neutrophils/100 WBC (Bld) 62.6 % Normal [facility] Comment on above: Performed By: #### C BCWD #### [facility] [address] [place] [address] Platelets (Bld) [#/Vol] 435 10*3/uL Critically high 130-40 0 [facility] Comment on above: Performed By: #### C BCWD #### [facility] [address] [place] [address] RBC (Bld) [#/Vol] 4.69 10*6/uL Normal 4.20-5.40 [facility] Comment on above: Performed By: #### C BCWD #### [facility] [address] [place] [address] WBC (Bld) [#/Vol] 12.4 10*3/uL Critically high 4.8-10.8 [facility] Comment on above: Performed By: #### C BCWD #### [facility] [address] [place] [address] Comprehensive Metabolic Pane bebeto 11-04-2018 Anion gap [Moles/Vol] 14 mmol/L Normal 9-15 [facility] Comment on above: Order Comment: CALL [facility] tel. [phone], Potassium results called to and read back by onofre Millan RN, 11/04/2018 16:24, by TAMMY Performed By: #### C MP #### [facility] [address] [place] [address] Bilirubin [Mass/Vol] 0.4 mg/dL Normal 0.2-0.7 [facility] Comment on above: Order Comment: CALL [facility] tel. [phone], Potassium results called to and read back by onofre Millan RN, 11/04/2018 16:24, by WEBAM Performed By: #### C MP #### [facility] [address] [place] [address] GFR/1.73 sq M predicted jeanette g blacks MDRD (S/P/Bld) [Vol rate/Area] mL/min/{1.73_m2} Normal >60 [facility] Comment on above: Order Comment: CALL [facility] tel. [phone], Potassium results called to and read back by onofre Millan RN, 11/04/2018 16:24, by WEBAM Result Comment: >60 mL/min/1.73m2 EGFR, calc. for ages 18 and older using the MDRD formula (not corrected for weight), is valid for stable renal function. Performed By: #### C MP #### [facility] [address] [place] [address] GFR/1.73 sq M.predicted MDRD (S/P/Bld) [Vol rate/Area] mL/min/{1.73_m2} Normal >60 [facility] Comment on above: Order Comment: CALL [facility] tel. [phone], Potassium results called to and read back by onofre Millan RN, 11/04/2018 16:24, by WEBAM Result Comment: >60 mL/min/1.73m2 EGFR, calc. for ages 18 and older using the MDRD formula (not corrected for weight), is valid for stable renal function. Performed By: #### C MP #### [facility] [address] [place] [address] Albumin [Mass/Vol] 4.5 g/dL Normal 3.5-4.6 [place], [place] Comment on above: Order Comment: CALL [facility] tel. [phone], Potassium results called to and read back by onofre Millan RN, 11/04/2018 16:24, by WEBAM Performed By: #### C MP #### [facility] [address] [place] [address] ALP [Catalytic activity/Vol] 76 U/L Normal 40-130 [facility], [place] Comment on above: Order Comment: CALL [facility] tel. [phone], Potassium results called to and read back by onofre Millan RN, 11/04/2018 16:24, by WEBAM Performed By: #### C MP #### [facility] [address] [place] [address] [place] [address] ALT [Catalytic activity/Vol] 15 U/L Normal 0-33 [facility] [place] Comment on above: Order Comment: CALL [facility] tel. [phone], Potassium results called to and read back by onofre Millan RN, 11/04/2018 16:24, by WEBAM Performed By: #### C MP #### [facility] [address] [place] [address] AST [Catalytic activity/Vol] 20 U/L Normal 0-35 [place], [place] Comment on above: Order Comment: CALL [facility] tel. [phone], Potassium results called to and read back by onofre Millan RN, 11/04/2018 16:24, by WEBAM Performed By: #### C MP #### [facility] [address] [place] [place] [address] Calcium [Mass/Vol] 9.9 mg/dL Normal 8.5-9.9 [place] Comment on above: Order Comment: CALL [facility] tel. [phone], Potassium results called to and read back by onofre Millan RN, 11/04/2018 16:24, by WEBAM Performed By: #### C MP #### [facility] [address] [place] [address] Chloride [Moles/Vol] 96 mmol/L Normal 95-107 [place], [place] Comment on above: Order Comment: CALL [facility] tel. [phone], Potassium results called to and read back by onofre Millna RN, 11/04/2018 16:24, by WEBAM Performed By: #### C MP #### [facility] [address] [place] [address] CO2 [Moles/Vol] 24 mmol/L Normal 20-31 [place], [place] Comment on above: Order Comment: CALL [facility] tel. [phone], Potassium results called to and read back by onofre Millan RN, 11/04/2018 16:24, by WEBAM Performed By: #### C MP #### [facility] [address] [place] [address] Creatinine [Mass/Vol] 0.67 mg/dL Normal 0.50-0.90 [place], [place] Comment on above: Order Comment: CALL [facility] tel. [phone], Potassium results called to and read back by onofre Millan RN, 11/04/2018 16:24, by WEBAM Performed By: #### C MP #### [facility] [address] [facility] [address] Globulin (S) [Mass/Vol] 2.8 g/dL Normal 2.3-3.5 [place], [place] Comment on above: Order Comment: CALL [facility] tel. [phone], Potassium results called to and read back by onofre Millan RN, 11/04/2018 16:24, by WEBAM Performed By: #### C MP #### [facility] [address] [place] [address] Glucose [Mass/Vol] 109 mg/dL Critically high 70-99 [place], [place] Comment on above: Order Comment: CALL [facility] tel. [phone], Potassium results called to and read back by onofre Millan RN, 11/04/2018 16:24, by WEBAM Performed By: #### C MP #### [facility] [address] [place] [address] Potassium [Moles/Vol] 3.0 mmol/L Critically low 3.4-4.9 [place] Comment on above: Order Comment: CALL [facility] tel. [phone], Potassium results called to and read back by onofre Millan RN, 11/04/2018 16:24, by WEBAM Performed By: #### C MP #### [facility] [address] [place] [address] Protein [Mass/Vol] 7.3 g/dL Normal 6.3-8.0 [place] Comment on above: Order Comment: CALL [facility] tel. [phone], Potassium results called to and read back by onofre Millan RN, 11/04/2018 16:24, by WEBAM Performed By: #### C MP #### [facility] [address] [facility] [address] Sodium [Moles/Vol] 134 mmol/L Low 135-144 [place], [place] Comment on above: Order Comment: CALL [facility] tel. [phone], Potassium results called to and read back by onofre Millan RN, 11/04/2018 16:24, by WEBAM Performed By: #### C MP #### [facility] [address] [place] [address] Urea nitrogen [Mass/Vol] 8 mg/dL Normal 8-23 [place] Comment on above: Order Comment: CALL [facility] tel. [phone], Potassium results called to and read back by onofre Millan RN, 11/04/2018 16:24, by WEBAM Performed By: #### C MP #### [facility] [address] [facility] [address] [facility] [address] Anion gap [Moles/Vol] 14 mmol/L [place], [place] Bilirubin Ql (U) 0.4 mg/dL 0.2 - 0.7 mg/dL [place], [place] GFR >60.0 >60 [place], [place] Comment on above: >60 mL/min/1.73m2 EG FR, calc. for ages 18 and older using the MDRD formula (not corrected for weight), is valid for stable renal function. GFR Non- >60.0 >60 [place], [place] Comment on above: >60 mL/min/1.73m2 EG FR, calc. for ages 18 and older using the MDRD formula (not corrected for weight), is valid for stable renal function. Interpretation and review of laboratory results Abnormal [facility] Potassium [Moles/Vol] CALL [facility] tel . [phone], Potassium results called to and read back by onofre Millan RN, 11/04/2018 16:24, by ALICEAM [facility] Partial Thromboplastin Timeo n 11-04-2018 aPTT Coag (Bld) [Time] 27.9 s Normal 24.4-36.8 [facility] Comment on above: Result Comment: Effe ctive 09/06/2018: Please note methodology and/or reference ranges have changed. aPTT - Heparin Therapeutic Range: 74.0 - 106 seconds Performed By: #### P TT #### [facility] [address] [facility] [address] Prothrombin Timeon 9 INR Coag (PPP) [Relative time] 0.9 {INR} Normal [facility] Comment on above: Result Comment: Warf camden Therapy INR Therapeutic: 2.0-3.0 With Mechanical Valve: >2.5 Low-intensity Therapeutic Range: 1.5-2.0 Mod-intensity Therapeutic Range: 2.0-3.0 High-intensity Therapeutic Range: 2.5-3.5 HIgh-intensity Therapeutic Range: 3.0-4.0 Common Critical/Alarm Value: 5.0 Common Upper Limit Reported: 10.0 Effective 08/30/2018: Please note methodology and/or reference ranges have changed. Performed By: #### P T #### [facility] [address] [facility] [address] PT Coag (PPP) [Time] 12.1 s Low 12.3-14.9 [facility] Comment on above: Result Comment: Effe ctive 08/30/18 Please note methodology and/or reference ranges have changed. Performed By: #### P T #### [facility] [address] [facility] [address] Protime-INRon 11-04-2018 INR Coag (PPP) [Relative time] 0.9 {INR} [place], [place] Comment on above: Warfarin Therapy IN R Therapeutic: 2.0-3.0 With Mechanical Valve: >2.5 Low-intensity Therapeutic Range: 1.5-2.0 Mod-intensity Therapeutic Range: 2.0-3.0 High-intensity Therapeutic Range: 2.5-3.5 HIgh-intensity Therapeutic Range: 3.0-4.0 Common Critical/Alarm Value: 5.0 Common Upper Limit Reported: 10.0 Effective 08/30/2018: Please note methodology and/or reference ranges have changed. Interpretation and review of laboratory results Abnormal [place], [place] PT Coag (PPP) [Time] 12.1 s Low [place], [place] Comment on above: Effective 08/30/18 Please note methodology and/or reference ranges have changed. Sedimentation Rateon 019 Sedimentation Rate 12 mm Normal 0-30 [facility] Comment on above: Performed By: #### E SR #### [facility] [address] [place] [address] Sed Rate 12 mm 0 - 30 mm [place] Vital Signs Date Time Vital Sign Value Performing Clinician Ivonne ledesma 12-22-2022 11:40-0400 Blood Pressure Location MIKAYLA WEISS [facility] 12-22-2022 11:40-0400 Diastolic blood pressure 84 mm[Hg] MIKAYLA WEISS [facility] 12-22-2022 11:40-0400 Systolic blood pressure 124 mm[Hg] MIKAYLA WEISS [facility] 08-06-2022 00:10-0400 Body temperature 97.3 [degF] MD Addy Daniels Work Phone: [facility] 08-06-2022 00:10-0400 Diastolic blood pressure 74 mm[Hg] MD Addy Daniels Work Phone: [facility] 08-06-2022 00:10-0400 Heart rate 80 /min MD Addy Daniels Work Phone: [facility] 08-06-2022 00:10-0400 Respiratory rate 18 /min MD Addy Daniels Work Phone: [facility] 08-06-2022 00:10-0400 SaO2% (BldA) [Mass fraction] 96 % MD Addy Daniels Work Phone: [facility] 08-06-2022 00:10-0400 Systolic blood pressure 177 mm[Hg] MD Addy Daniels Work Phone: [facility] 08-05-2022 19:51-0400 Body height 154.94 cm MD Addy Daniels Work Phone: [facility] 08-05-2022 19:51-0400 Body weight 67.6 kg MD Addy Daniels Work Phone: [facility] 11-20-2018 07:02-0400 Body Temperature 97 [degF] [facility] [place] 11-20-2018 07:02-0400 BP Diastolic 61 mm[Hg] [facility], [place] 11-20-2018 07:02-0400 BP Systolic 153 mm[Hg] [facility] [place] 11-20-2018 07:02-0400 Pulse (Heart Rate) 75 /min [facility] [place] 11-20-2018 07:02-0400 Pulse Oximetry 97 % Mary John PaulSantana [facility] 11-20-2018 07:02-0400 Respiratory Rate 17 /min Mary John PaulConsumr [facility] 11-17-2018 05:54-0400 BMI (Body Mass Index) 27.62 kg/m2 Mary StevieSantana [facility] 11-17-2018 05:54-0400 Body weight 66.3 kg Mary HubbardSantana [facility] 11-15-2018 15:58-0400 Height 154.9 cm Mary [facility], [place] 11-05-2018 07:30-0400 BP Diastolic 57 mm[Hg] Lenny [facility] , [place] 11-05-2018 07:30-0400 BP Systolic 135 mm[Hg] Lenny [facility] , [place] 11-05-2018 07:30-0400 Pulse (Heart Rate) 70 /min Lenny [facility], [place] 11-05-2018 07:30-0400 Pulse Oximetry 97 % Lenny [facility] , [place] 11-04-2018 20:06-0400 Body Temperature 98.4 [degF] Lenny [facility], [place] 11-04-2018 20:06-0400 Respiratory Rate 16 /min Lenny [facility], [place] 11-04-2018 14:56-0400 BMI (Body Mass Index) 27.4 kg/m2 Lenny [facility], [place] 11-04-2018 14:56-0400 Body weight 65.77 kg [facility] , [place] 11-04-2018 14:56-0400 Height 154.9 cm [facility] , [place] Encounters Encounter Date Encounter Type Care Provider Facility Start: 06-29-2023 ambulatory MIKAYLA Mora ty:ERIN Hoang Start: 01-11-2023 End: 01-11-2023 ambulatory [facility] Start: 12-22-2022 End: 12-23-2022 ambulatory MIKAYLA WEISS Facility:ERIN Hoang Start: 12-22-2022 End: 12-22-2022 Patient encounter procedure MIKAYLA WEISS [facility] Natalya Start: 10-14-2022 End: 10-14-2022 ambulatory [facility] Start: 09-06-2022 End: 09-07-2022 ambulatory Raymond HARRISON Facility:ERIN Hoang Start: 08-11-2022 End: 08-12-2022 ambulatory Raymond HARRISON Facility:[id number] Start: 08-10-2022 End: 08-11-2022 ambulatory Raymond Mckeon CHRISTY Facility:[facility] Start: 08-09-2022 End: 08-09-2022 ambulatory Addy Daniels Facility:[facility] Start: 08-09-2022 ambulatory MIKAYLA ABDULLAHI Facility :[facility] Start: 08-05-2022 End: 08-06-2022 Emergency department patient visit Camacho Rios Allison Facility:[facility] Start: 08-05-2022 End: 08-06-2022 Emergency department patient visit MD Addy Daniels Work Phone: [facility] Work Phone: Start: 06-13-2022 End: 06-14-[address] ADDY DANIELS . Facility:[facility] Start: 05-19-[address] ADDY DANIELS . Facili ty:[facility] Start: 04-18-2022 End: 04-19-[address] VALERIE DARDEN Facility:[facility] Start: 04-04-2022 End: 04-04-2022 ambulatory [facility] Start: 01-30-[address] ADDY DANIELS . Facili ty:[facility] Start: 01-04-2022 End: 01-05-[address] ADDY DANIELS . Facility:[facility] Start: 12-26-2021 End: 12-29-2021 Evaluation and management of inpatient DR ADDY DANIELS . Facility:[facility] Start: 12-02-2021 End: 01-04-2022 Pre-admission assessment Alie Santos [facility] Start: 11-30-2021 End: 12-01-[address] JESUS BRUNO Facility:[facility] Start: 11-09-2021 End: 11-10-[address] CALISTA ACEVES Facility:[facility] Start: 08-06-2021 End: 08-07-[address] VALERIE DARDEN Facility:[facility] Start: 07-28-2021 End: 07-29-[address] CALISTA ACEVES Facility:[facility] Start: 06-22-2021 End: 06-22-2021 Patient encounter procedure EHAB ADELSO [facility] Start: 11-15-2018 End: 11-20-2018 Evaluation and management of inpatient MARY VEGA [facility] Start: 11-15-2018 End: 11-20-2018 Evaluation and management of inpatient Mary Vega Work Phone: [facility] Comment on above: Spinal stenosis of l umbosacral region (Primary Dx); Impaired mobility; Vasovagal syncope Start: 11-13-2018 End: 11-15-2018 Evaluation and management of inpatient LENNY CORRAL [facility] Start: 11-13-2018 End: 11-15-2018 Patient encounter procedure LENNY Kang ELLIS [facility] Start: 11-04-2018 End: 11-05-2018 Patient encounter procedure CALISTA KETAN [facility] Start: 11-04-2018 End: 11-05-2018 Emergency department patient visit Lenny Corral Work Phone: [facility] Comment on above: Lumbar radiculopathy (Primary Dx); Intractable low back pain Start: 04-19-2018 End: 04-20-2018 Patient encounter procedure DEFAULT PHYSICIAN Facility:[facility] Procedures Date Procedure Procedure Detail Performing Clinician Start: 11-20-2018 INCENTIVE SPIROMETRY RT CALISTA ACEVES Start: 11-20-2018 IP CONSULT TO HOME C ARE NEEDS CALISTA ACEVES Start: 11-20-2018 INCENTIVE SPIROMETRY RT CALISTA ACEVES Start: 11-20-2018 INCENTIVE SPIROMETRY RT CALSITA ACEVES Start: 11-20-2018 Blood count complete auto&auto difrntl wbc CALISTA ACEVES Start: 11-20-2018 AMB EXTERNAL REFERRA L TO PHYSICAL THERAPY CALISTA ACEVES Start: 11-20-2018 INCENTIVE SPIROMETRY RT CALISTA ACEVES Start: 11-20-2018 Blood count complete auto&auto difrntl wbc Lenny Corral Work Phone: Start: 11-20-2018 INCENTIVE SPIROMETRY RT CALISTA ACEVES Start: 11-20-2018 INITIATE OXYGEN THER APY PROTOCOL CALISTA ACEVES Start: 11-20-2018 INCENTIVE SPIROMETRY RT CALISTA ACEVES Start: 11-20-2018 INCENTIVE SPIROMETRY RT CALISTA ACEVES Start: 11-19-2018 DISCHARGE PATIENT MARQUEZ ACEVES Start: 11-19-2018 INCENTIVE SPIROMETRY RT CALISTA ACEVES Start: 11-19-2018 INCENTIVE SPIROMETRY RT CALISTA ACEVES Start: 11-19-2018 INCENTIVE SPIROMETRY RT CALISTA ACEVES Start: 11-19-2018 INCENTIVE SPIROMETRY RT CALISTA ACEVES Start: 11-19-2018 INCENTIVE SPIROMETRY RT CALISTA ACEVES Start: 11-19-2018 INCENTIVE SPIROMETRY RT CALISTA ACEVES Start: 11-19-2018 INCENTIVE SPIROMETRY RT CALISTA ACEVES Start: 11-19-2018 INITIATE OXYGEN THER APY PROTOCOL CALISTA ACEVES Start: 11-19-2018 INCENTIVE SPIROMETRY RT CALISTA ACEVES Start: 11-19-2018 Blood count complete auto&auto difrntl wbc CALISTA ACEVES Start: 11-19-2018 C-reactive protein h igh sensitivity CALISTA ACEVES Start: 11-19-2018 Sedimentation rate r bc automated CALISTA ACEVES Start: 11-19-2018 Blood count complete auto&auto difrntl wbc Lenny H. Ellis Work Phone: Start: 11-19-2018 C-reactive protein h igh sensitivity Mary Vega Work Phone: Start: 11-19-2018 Sedimentation rate r bc automated Mary Vega Work Phone: Start: 11-19-2018 INCENTIVE SPIROMETRY RT CALISTA ACEVES Start: 11-18-2018 INCENTIVE SPIROMETRY RT CALISTA ACEVES Start: 11-18-2018 INCENTIVE SPIROMETRY RT CALISTA ACEVES Start: 11-18-2018 CHANGE DRESSING CALISTA KETAN Start: 11-18-2018 NURSING COMMUNICATION M DORA ACEVES Start: 11-18-2018 INCENTIVE SPIROMETRY RT CALISTA KETAN Start: 11-18-2018 Ecg routine ecg w/le ast 12 lds w/i&r CALISTA KETAN Start: 11-18-2018 INCENTIVE SPIROMETRY RT CALISTA ACEVES Start: 11-18-2018 Ecg routine ecg w/le ast 12 lds w/i&r Steve I Cho Work Phone: Start: 11-18-2018 Assay of magnesium CHRIS PRESLEY ACEVES Start: 11-18-2018 Assay of thyroid stimulating hormone tsh CALISTA KETAN Start: 11-18-2018 Basic metabolic pane l calcium total CALISTA ACEVES Start: 11-18-2018 INCENTIVE SPIROMETRY RT CALISTA KETAN Start: 11-18-2018 Assay of magnesium Evie ld I Cho Work Phone: Start: 11-18-2018 Assay of thyroid stimulating hormone tsh Steve I Cho Work Phone: Start: 11-18-2018 Basic metabolic pane l calcium total Steve I Cho Work Phone: Start: 11-18-2018 INCENTIVE SPIROMETRY RT CALISTA ACEVES Start: 11-18-2018 INCENTIVE SPIROMETRY RT CALISTA ACEVES Start: 11-18-2018 INITIATE OXYGEN THER APY PROTOCOL CALISTA ACEVES Start: 11-18-2018 INCENTIVE SPIROMETRY RT CALISTA ACEVES Start: 11-18-2018 INCENTIVE SPIROMETRY RT CALISTA ACEVES Start: 11-17-2018 INCENTIVE SPIROMETRY RT CALISTA ACEVES Start: 11-17-2018 INCENTIVE SPIROMETRY RT CALISTA ACEVES Start: 11-17-2018 INCENTIVE SPIROMETRY RT CALISTA ACEVES Start: 11-17-2018 INCENTIVE SPIROMETRY RT CALISTA ACEVES Start: 11-17-2018 INCENTIVE SPIROMETRY RT CALISTA ACEVES Start: 11-17-2018 INCENTIVE SPIROMETRY RT CALISTA ACEVES Start: 11-17-2018 INCENTIVE SPIROMETRY RT CALISTA ACEVES Start: 11-17-2018 INITIATE OXYGEN THER APY PROTOCOL CALISTA ACEVES Start: 11-17-2018 INCENTIVE SPIROMETRY RT CALISTA ACEVES Start: 11-17-2018 Blood count complete auto&auto difrntl wbc CALISTAPRESLEY ACEVES Start: 11-17-2018 C-reactive protein h igh sensitivity CALISTAPRESLEY ACEVES Start: 11-17-2018 Sedimentation rate r bc automated CALISTA ACEVES Start: 11-17-2018 Blood count complete auto&auto difrntl wbc Mary Vega Work Phone: Start: 11-17-2018 C-reactive protein h igh sensitivity Mary Vega Work Phone: Start: 11-17-2018 Sedimentation rate r bc automated Mary Vega Work Phone: Start: 11-17-2018 Dup-scan xtr veins c omplete bilateral study CALISTA ACEVES Start: 11-17-2018 INCENTIVE SPIROMETRY RT CALISTA ACEVES Start: 11-16-2018 Dup-scan xtr veins c omplete bilateral study Mary Vega Work Phone: Start: 11-16-2018 INCENTIVE SPIROMETRY RT CALISTA ACEVES Start: 11-16-2018 INCENTIVE SPIROMETRY RT CALISTA ACEVES Start: 11-16-2018 INCENTIVE SPIROMETRY RT CALISTA ACEVES Start: 11-16-2018 Echo tthrc r-t 2d w/wom-mode compl spec&colr d CALISTA ACEVES Start: 11-16-2018 INCENTIVE SPIROMETRY RT CALISTA ACEVES Start: 11-16-2018 IP CONSULT TO INFECT IOUS DISEASES CALISTA ACEVES Start: 11-16-2018 Echo tthrc r-t 2d w/wom-mode compl spec&colr d Dulce Rojas Holiday Work Phone: Start: 11-16-2018 INCENTIVE SPIROMETRY RT CALISTA ACEVES Start: 11-16-2018 INCENTIVE SPIROMETRY RT CALISTA ACEVES Start: 11-16-2018 NURSING COMMUNICATION M DORA ACEVES Start: 11-16-2018 INCENTIVE SPIROMETRY RT CALISTA ACEVES Start: 11-16-2018 INITIATE OXYGEN THER APY PROTOCOL CALISTA ACEVES Start: 11-16-2018 INCENTIVE SPIROMETRY RT CALISTA ACEVES Start: 11-16-2018 Blood count complete auto&auto difrntl wbc CALISTA ACEVES Start: 11-16-2018 IP CONSULT TO CARDIOLOGY CALISTA ACEVES Start: 11-16-2018 Blood count complete auto&auto difrntl wbc Mary [employer] Work Phone: Start: 11-16-2018 DAILY WEIGHTS CALISTA PETRA PATINO Start: 11-16-2018 INCENTIVE SPIROMETRY RT CALISTA ACEVES Start: 11-15-2018 IP CONSULT TO CASE MANAGEMENT CALISTA ACEVES Start: 11-15-2018 IP CONSULT TO RECREA TION THERAPY CALISTA ACEVES Start: 11-15-2018 FULL CODE CALISTA MICHELE Start: 11-15-2018 GRADUAL COMPRESSION STOCKINGS (SOFIYA) CALISTA ACEVES Start: 11-15-2018 INITIATE OXYGEN THER APY PROTOCOL CALISTA ACEVES Start: 11-15-2018 IP CONSULT TO HOSPITALIST CALISTA ACEVES Start: 11-15-2018 IP CONSULT TO NEUROSURGERY CALISTA ACEVES Start: 11-15-2018 OT EVAL AND TREAT MARQUEZ ACEVES Start: 11-15-2018 PATIENT STATUS (DIRECT) CALISTA ACEVES Start: 11-15-2018 PT EVAL AND TREAT MARQUEZ ACEVES Start: 11-15-2018 REASON FOR NO MECHAN ICAL VTE PROPHYLAXIS CALISTA ACEVES Start: 11-15-2018 LEAD PRESSER EVAL AND TREAT CHRIS ACEVES Start: 11-15-2018 TOBACCO CESSATION EDUCATION CALISTA ACEVES Start: 11-15-2018 VITAL SIGNS CALISTA RIVERA UN Start: 11-15-2018 Radiologic exam ches t single view CALISTA ACEVES Start: 11-15-2018 INCENTIVE SPIROMETRY RT CALISTA KETAN Start: 11-15-2018 Radiologic exam ches t single view Mary Vega Work Phone: Start: 11-15-2018 Duplex scan extracra nial art compl bi study CALISTA ACEVES Start: 11-15-2018 Culture bacterial quanttative colony count urine CALISTA KETAN Start: 11-15-2018 Urinalysis microscopic only CALISTA KETAN Start: 11-15-2018 Urnls dip stick/tabl et rgnt auto w/o microscopy CALISTA ACEVES Start: 11-15-2018 INCENTIVE SPIROMETRY RT CALISTA KETAN Start: 11-15-2018 Duplex scan extracra nial art compl bi study [employer] Work Phone: Start: 11-15-2018 Culture bacterial quanttative colony count urine Mary Vega Work Phone: Start: 11-15-2018 Urinalysis microscopic only Mary Vega Work Phone: Start: 11-15-2018 Blood count complete auto&auto difrntl wbc CALISTA ACEVES Start: 11-15-2018 Culture bacterial bl ood aerobic w/id isolates CALISTA ACEVES Start: 11-15-2018 Microscopic examinat ion of blood, culture CALISTA ACEVES Comment on above: Performed By: #### P TT #### [facility] [address] [place] [id number] Start: 11-15-2018 Urnls dip stick/tabl et rgnt auto w/o microscopy Mary Vega Work Phone: Start: 11-15-2018 IP CONSULT TO HOSPITALIST CALISTA ACEVES Start: 11-15-2018 PATIENT STATUS (DIRECT) CALISTA ACEVES Start: 11-15-2018 AMBULATE PATIENT CALISTA ACEVES Start: 11-15-2018 DIET GENERAL CALISTA BRA UN Start: 11-15-2018 PLACE INTERMITTENT P NEUMATIC COMPRESSION DEVICE CALISTA ACEVES Start: 11-15-2018 WOUND CARE CALISTA STAFFORD UN Start: 11-15-2018 ACTIVITY TOLERATED M DORA KETAN Start: 11-15-2018 INCENTIVE SPIROMETRY RT CALISTA ACEVES Start: 11-15-2018 Blood count complete auto&auto difrntl wbc Mary Vega Work Phone: Start: 11-15-2018 Culture bacterial bl ood aerobic w/id isolates Mary Vega Work Phone: Start: 11-15-2018 INCENTIVE SPIROMETRY RT CALISTA ACEVES Start: 11-15-2018 INCENTIVE SPIROMETRY RT CALISTA ACEVES Start: 11-15-2018 PULSE OXIMETRY, CONTINUOUS CALISTA ACEVES Start: 11-15-2018 DISCHARGE PATIENT MARQUEZ Borrero KETAN Start: 11-15-2018 Blood count complete auto&auto difrntl wbc CALISTA ACEVES Start: 11-15-2018 Blood count complete automated CALISTA ACEVES Start: 11-15-2018 INCENTIVE SPIROMETRY RT CALISTA ACEVES Start: 11-15-2018 INCENTIVE SPIROMETRY RT CALISTA ACEVES Start: 11-15-2018 INITIATE OXYGEN THERAPY PROTOCOL CALISTA ACEVES Start: 11-15-2018 PULSE OXIMETRY, CONTINUOUS CALISTA ACEVES Start: 11-15-2018 INCENTIVE SPIROMETRY RT CALISTA ACEVES Start: 11-15-2018 PULSE OXIMETRY, CONTINUOUS CALISTA ACEVES Start: 11-15-2018 PULSE OXIMETRY, CONTINUOUS CALISTA ACEVES Start: 11-15-2018 INCENTIVE SPIROMETRY RT CALISTA ACEVES Start: 11-14-2018 INCENTIVE SPIROMETRY RT CALISTA ACEVES Start: 11-14-2018 PULSE OXIMETRY, CONTINUOUS CALISTA ACEVES Start: 11-14-2018 INCENTIVE SPIROMETRY RT CALISTA ACEVES Start: 11-14-2018 IP CONSULT TO CARDIOLOGY CALISTA ACEVES Start: 11-14-2018 INCENTIVE SPIROMETRY RT CALISTA ACEVES Start: 11-14-2018 PULSE OXIMETRY, CONTINUOUS CALISTA ACEVES Start: 11-14-2018 INCENTIVE SPIROMETRY RT CALISTA ACEVES Start: 11-14-2018 INCENTIVE SPIROMETRY RT CALISTA ACEVES Start: 11-14-2018 PULSE OXIMETRY, CONTINUOUS CALISTA ACEVES Start: 11-14-2018 Radex spine lumbosacral 2/3 views CALISTA ACEVES Start: 11-14-2018 INCENTIVE SPIROMETRY RT CALISTA ACEVES Start: 11-14-2018 Gluc bld gluc mntr d ev cleared fda spec home use CALISTA ACEVES Start: 11-14-2018 INCENTIVE SPIROMETRY RT CALISTA ACEVES Start: 11-14-2018 INITIATE OXYGEN THERAPY PROTOCOL CALISTA ACEVES Start: 11-14-2018 PULSE OXIMETRY, CONTINUOUS CALISTA ACEVES Start: 11-14-2018 IP CONSULT TO REHAB/ TCU ADMISSION COORDINATOR CALISTA ACEVES Start: 11-14-2018 INCENTIVE SPIROMETRY RT CALISTA ACEVES Start: 11-14-2018 Blood count complete auto&auto difrntl wbc CALISTA ACEVES Start: 11-14-2018 Comprehensive metabolic panel CALISTA ACEVES Start: 11-14-2018 PULSE OXIMETRY, CONTINUOUS CALISTA ACEVES Start: 11-14-2018 ACTIVITY TOLERATED Blanca DORA ACEVES Start: 11-14-2018 AMBULATE PATIENT CALISTA ACEVES Start: 11-14-2018 DAILY WEIGHTS CALISTA LAMBERT CAREY Start: 11-14-2018 OT EVAL AND TREAT MARQUEZ ACEVES Start: 11-14-2018 PT EVAL AND TREAT MARQUEZ ACEVES Start: 11-14-2018 PULSE OXIMETRY, CONTINUOUS CALISTA ACEVES Start: 11-14-2018 INCENTIVE SPIROMETRY RT CALISTA ACEVES Start: 11-13-2018 INCENTIVE SPIROMETRY RT CALISTA ACEVES Start: 11-13-2018 PULSE OXIMETRY, CONTINUOUS CALISTA ACEVES Start: 11-13-2018 INCENTIVE SPIROMETRY RT CALISTA ACEVES Start: 11-13-2018 DIET GENERAL CALISTA STAFFORD UN Start: 11-13-2018 PLACE INTERMITTENT P NEUMATIC COMPRESSION DEVICE CALISTA ACEVES Start: 11-13-2018 PULSE OXIMETRY, CONTINUOUS CALISTA ACEVES Start: 11-13-2018 ADVANCE DIET TOLE RATED (NURSING COMMUNICATION) CALISTA ACEVES Start: 11-13-2018 ELEVATE HOB CALISTA STAFFORD UN Start: 11-13-2018 INCENTIVE SPIROMETRY RT CALISTA ACEVES Start: 11-13-2018 INITIATE OXYGEN THERAPY PROTOCOL CALISTA ACEVES Start: 11-13-2018 INTAKE AND OUTPUT MARQUEZ ACEVES Start: 11-13-2018 NEURO/VASCULAR CHECKS Blanca ACEVES Start: 11-13-2018 NOTIFY PHYSICIAN (SPECIFY) CALISTA ACEVES Start: 11-13-2018 TELEMETRY MONITORING MA ALEX ACEVES Start: 11-13-2018 TOBACCO CESSATION EDUCATION CALISTA ACEVES Start: 11-13-2018 VITAL SIGNS CALISTA BRA UN Start: 11-13-2018 WOUND CARE CALISTA BRA UN Start: 11-13-2018 FULL CODE CALISTA RIVERA UN Start: 11-13-2018 Blood count complete automated CALISTA ACEVES Start: 11-13-2018 Comprehensive metabolic panel CALISTA ACEVES Start: 11-13-2018 PATIENT STATUS (FROM ED OR OR/PROCEDURAL) CALISTA ACEVES Start: 11-13-2018 TRANSFER PATIENT CALISTA ACEVES Start: 11-13-2018 FLUORO FOR SURGICAL PROCEDURES CALISTA ACEVES Start: 11-13-2018 Level iv surg pathol ogy gross&microscopic exam CALISTA ACEVES Start: 11-13-2018 Cul prsmptv pthgnc o rganism scrn w/colony estimj CALISTA ACEVES Start: 11-13-2018 TYPE AND SCREEN CALISTA ACEVES Start: 11-13-2018 Radex entir thrc lmb r crv sac spi w/skull 2/3 vw CALISTA ACEVES Start: 11-13-2018 Level iv surg pathol ogy gross&microscopic exam CALISTA ACEVES Start: 11-05-2018 DISCHARGE PATIENT MARQUEZ ACEVES Start: 11-05-2018 ASSESS HEART TONES CALISTA ACEVES Start: 11-05-2018 DIET FULL LIQUID CALISTA ACEVES Start: 11-05-2018 FULL CODE CALISTA STAFFORD UN Start: 11-05-2018 INTAKE AND OUTPUT MARQUEZ ACEVES Start: 11-05-2018 NOTIFY PHYSICIAN (SPECIFY) CALISTA ACEVES Start: 11-05-2018 PLACE INTERMITTENT P NEUMATIC COMPRESSION DEVICE CALISTA ACEVES Start: 11-05-2018 VITAL SIGNS CALISTA STAFFORD UN Start: 11-05-2018 Mri spinal canal lum bar w/o & w/contr matrl CALISTA ACEVES Start: 11-05-2018 Radex spine lumbosac ral minimum 4 views CALISTA ACEVES Start: 11-05-2018 Radiologic exam chest 2 views CALISTA ACEVES Start: 11-05-2018 Mri spinal canal lum bar w/o & w/contr matrl Lenny H. Ellis Work Phone: Start: 11-05-2018 Radex spine lumbosac ral minimum 4 views Lenny H. Ellis Work Phone: Start: 11-05-2018 Radiologic exam chest 2 views Lenny H. Ellis Work Phone: Start: 11-05-2018 Ecg routine ecg w/least 12 lds w/i&r CALISTA ACEVES Start: 11-04-2018 NOTIFY PHYSICIAN (SPECIFY) CALISTA ACEVES Start: 11-04-2018 REASON FOR NO MECHAN ICAL VTE PROPHYLAXIS CALISTA ACEVES Start: 11-04-2018 VITAL SIGNS CALISTA STAFFORD UN Start: 11-04-2018 Sedimentation rate rbc automated CALISTA ACEVES Start: 11-04-2018 PATIENT STATUS (FROM ED OR OR/PROCEDURAL) CALISTA ACEVES Start: 11-04-2018 Blood count complete auto&auto difrntl wbc CALISTA ACEVES Start: 11-04-2018 C-reactive protein CHRIS SHERWOOD KETAN Start: 11-04-2018 Comprehensive metabolic panel CALISTA CAEVES Start: 11-04-2018 Prothrombin time CALISTA ACEVES Start: 11-04-2018 Thromboplastin time partial plasma/whole blood CALISTA ACEVES Start: 11-04-2018 Urnls dip stick/tabl et rgnt auto w/o microscopy CALISTA ACEVES Start: 11-04-2018 Sedimentation rate rbc automated Ab Drummond Work Phone: Start: 11-04-2018 Blood count complete auto&auto difrntl wbc Ab Drummond Work Phone: Start: 11-04-2018 C-reactive protein Steven Drummond Work Phone: Start: 11-04-2018 Comprehensive metabolic panel Ab Drummond Work Phone: Start: 11-04-2018 Prothrombin time Ab Drummond Work Phone: Start: 11-04-2018 Thromboplastin time partial plasma/whole blood Ab Drummond Work Phone: Appendectomy MIKAYLA WEISS Bilateral salpingect mackenzie with oophorectomy MIKAYLA WEISS Cataract extraction and insertion of intraocular lens MIKAYLA WEISS Cholecystectomy MIKAYLA RAMON RY Colonoscopy MIKAYLA EWISS Procedure on back MIKAYLA DUMAS Tonsillectomy MIKAYLA WEISS Plan of Treatment Date Care Activity Detail Author Start: 08-05-2022 CT Abdomen and Pelvis WO contrast [facility] Start: 08-05-2022 CT of abdomen and pelvis without contrast CT abdomen pelvis wo con [facility] Start: 11-19-2019 Creatinine monitoring Creatinine monitoring [place], [place] Start: 11-19-2019 Potassium monitoring Potassium monitoring [place], [place] Start: 11-05-2019 Creatinine monitoring Creatinine monitoring [place] Start: 11-05-2019 Potassium monitoring Potassium monitoring [place] Start: 12-04-2018 End: 12-04-2018 Office Visit 12/04/2018 Office Visit Neurosurgery Lenny Corral MD [address] [facility], [address] [address] [facility] [employer] Start: 11-30-2018 End: 11-30-2018 Office Visit 11/30/2018 Office Visit Neurosurgery Lenny Corral MD [address] [facility], [address] [address] [facility] Start: 11-23-2018 End: 11-23-2018 Office Visit 11/23/2018 Office Visit Neurosurgery Lenny Corral MD [address] [facility], [address] [address] [facility] Start: 11-13-2018 Annual Wellness Visit (AWV) Annual Wellness Visit (AWV) [place] Start: 10-21-2018 Influenza vaccination Flu vaccine (#1) [place] Start: 2001 DEXA (modify frequency per FRAX score) DEXA (modify frequency per FRAX score) [place] Start: 2001 Pneumococcal 65+ years Vaccine (1 of 2 - PCV13) Pneumococcal 65+ years Vaccine (1 of 2 - PCV13) [place] Start: 1986 Shingles Vaccine (1 of 2) Shingles Vaccine (1 of 2) [place] Start: 11-13-1955 DTaP/Tdap/Td vaccine (1 - Tdap) DTaP/Tdap/Td vaccine (1 - Tdap) [place] Start: 1946 Lipid screen Lipid screen [place], [place] Culture Blood #1 Culture Blood # 1 Microbiology STAT 11/15/2018 4:37 PM EDT [place] Culture Blood #2 Culture Blood # 2 Microbiology STAT 11/15/2018 4:37 PM EDT [place] End: 11-05-2018 EKG 12 Lead EKG 12 Lead ECG Routine One Time for 1 Occurrences starting 11/05/2018 until 11/05/2018 [place] Comment on above: One Time for 1 Occur rences starting 11/05/2018 until 11/05/2018 Incentive spirometry Incentive s pirometry Respiratory Care Routine Every 2hr while awake until discontinued starting 11/15/2018 [place] Comment on above: Every 2hr while awak e until discontinued starting 11/15/2018 Initiate Oxygen Ther apy Protocol Initiate Oxygen Therapy Protocol Respiratory Care Routine Daily until discontinued starting 11/15/2018 [place] Comment on above: Daily until disconti nued starting 11/15/2018 Nonrebreather mask oxygen Nonreb reather mask oxygen Respiratory Care Routine As directed - RT (PRN) until discontinued starting 11/05/2018 [place] Comment on above: As directed - RT (MO N) until discontinued starting 11/05/2018 Patient Education Kidney Stones (DC) [facility] Work Phone: Patient referral [facility] Work Phone: End: 11-15-2018 Speech and language therapy regime Speech language pathology evaluation LEAD PRESSER Routine One Time for 1 Occurrences starting 11/15/2018 until 11/15/2018 [place] Comment on above: One Time for 1 Occur rences starting 11/15/2018 until 11/15/2018 End: 11-04-2018 Urine Reflex to Culture Urine Reflex to Culture Lab STAT One Time for 1 Occurrences starting 11/04/2018 until 11/04/2018 [place] Comment on above: One Time for 1 Occur rences starting 11/04/2018 until 11/04/2018 Immunizations Immunization Date Immunization Notes Care Provider Laxmi romero 12-20-2021 influenza virus vaccine, unspecified formulation MIKAYLA WEISS [facility] 12-21-2020 influenza virus vaccine, unspecified formulation MIKAYLA ABDULLAHI [facility] 01-09-2019 influenza virus vaccine, unspecified formulation MIKAYLA ABDULLAHI [facility] 11-29-2017 influenza virus vaccine, unspecified formulation MIKAYLA ABDULLAHI [facility] 01-02-2017 influenza virus vaccine, unspecified formulation MIKAYLA ABDULLAHI [facility] 12-06-2016 influenza virus vaccine, unspecified formulation MIKAYLA ABDULLAHI [facility] 12-11-2014 influenza virus vaccine, unspecified formulation MIKAYLA ABDULLAHI [facility] Payers Date Payer Category Payer Self-pay [id number] 2021 Unknown [id number] 2018 Medicare MEDICARE MEDICAR E PART A AND B xxxxxxxxxxx 2018-Present [phone] [place] [address] xxxxxxxxxxx [id number] 2014 Medicare [id number] 2014 Medicare MEDICARE MEDICAR E PART A AND B xxxxxxxxxx 2014-Present [phone] [place] [address] xxxxxxxxxx [id number] 2014 Unknown [id number] 2014 Unknown 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 [address] xxxxxxxxxxxx 2014-Present [phone] [address] [place] [address] xxxxxxxxxxxx [id number] 1959 Medicare [id number] 1959 Self-pay [id number] 1959 Unknown [id number] 1936 Unknown [id number] 2.16.840.1.571533.3.579.2.647 1936 Unknown [id number] 2.16.840.1.886777.3.579.2.182 1936 Unknown [id number] 2.16.840.1.185030.3.579.2.182 1936 Unknown [id number] 2.16.840.1.860954.3.579.2.182 1936 Unknown [id number] 2.16.840.1.327479.3.579.2.182 1936 Unknown [id number] 2.16.840.1.790810.3.579.2.593 1936 Unknown [id number] 2.16.840.1.837699.3.579.2.593 1936 Unknown [id number] 2.16.840.1.612622.3.579.2.593 1936 Unknown [id number] 2.16.840.1.707603.3.579.2.593 1936 Unknown [id number] 2.16.840.1.321463.3.579.2.593 1936 Unknown [id number] 2.16.840.1.022111.3.579.2.593 1936 Unknown [id number] 2.16.840.1.837605.3.579.2.593 1936 Unknown [id number] 2.16.840.1.127457.3.579.2.593 1936 Unknown [id number] 2.16.840.1.268135.3.579.2.593 1936 Unknown [id number] 2.16.840.1.269579.3.579.2.593 1936 Unknown [id number] 2.16.840.1.697495.3.579.2.727 1936 Unknown [id number] 2.16.840.1.638325.3.579.2.727 1936 Unknown [id number] 2.16.840.1.234003.3.579.2.727 1936 Unknown [id number] 2.16.840.1.201301.3.579.2.727 1936 Unknown [id number] 2.16.840.1.300127.3.579.2.727 1936 Unknown [id number] 2.16.840.1.198005.3.579.2.727 Unknown Unknown [id number] 2.16.840.1.682809.3.579.2.531 Unknown [id number] 2.16.840.1.404108.3.579.2.531 Social History Date Type Detail Facility Start: 11-04-2018 End: 12-22-2022 Tobacco smoking status NHIS Never smoker [facility] Start: 11-04-2018 End: 11-19-2018 Alcohol intake Not Currently [facility] Sex Assigned At Not on file [facility] [place] Tobacco smoking status No Smokin g Status Entered [facility] Start: 1935 Sex Assigned At Female F [facility] Tobacco smoking status Never [facility] Medical Equipment Procedure Code Equipment Code Equipment Origin al Text Equipment Identifier Dates Graft Canc Chip 30cc [id number] - [id number] Start: 11-13-2018 Graft Canc Chip [id number] 15 - [id number] Start: 11-13-2018 Sys Fix Reline 0 x Conn 40 50mm 5.5lp Adj [id number] Start: 11-13-2018 Jose Armando-Graft Infuse Kt Med [id number] Start: 11-13-2018 Impl Spine Cage Kamila Crv [id number] 8deg [id number] Start: 11-13-2018 Impl Spine Cage Kamila Crv [id number] 8deg [id number] Start: 11-13-2018 Screw Polyaxial Reline O 2s 6.0x55mm [id number] Start: 11-13-2018 Screw Lk Reline Opn Tulip 5.5mm [id number] Start: 11-13-2018 Impl Spine Harish Reline-O Lrdtc 5.5x70mm [id number] Start: 11-13-2018 Impl Spine Harish Reline-O 5.5x75mm [id number] Start: 11-13-2018 Functional Status Date Assessment Result Facility 12-22-2022 Functional Status N/A [facility] Clinical Notes 04-04-2022 to 01-11-2023 Note Date & Type Note Facility 01-11-2023 Note Noted 7 beat run of NSVT on 1 week holter monitor, along with SVT, PVCs Recommended to continue coreg 25 mg bid, will place 30 day monitor, and obtain treadmill cardiolite stress test for ischemic evaluation. [facility] 01-11-2023 Note Pt reports that she has had 5 syncopal episodes since this Summer- some while having a BM, and other episodes while just up and walking. [facility] 01-11-2023 Note Will monitor with ro utine echocardiogram annually unless pt has concerning symptoms [facility] 01-11-2023 Note Recommended to gorge nue ASA and pravastatin [facility] 01-11-2023 Note Hypertension is stab le Reviewed B/P log and typically in the mornings her b/p with well controlled 120's/70-80, and in the evenings can be up to 140/80 Continue all meds and will add toprol [facility] 01-11-2023 Note Continue pravastatin [facility] 01-11-2023 Note Will monitor with ro utine echocardiogram annually unless pt has concerning symptoms [facility] 01-11-2023 Note Will monitor with ro utine echocardiogram annually unless pt has concerning symptoms [facility] 01-11-2023 Note Patient here for 3 m o follow up valve disorder and carotid artery stenosis. She has had a few episodes of syncope since last visit. She recently wore Holter monitor. Says Dr. Daniels wants to add metoprolol but she does not want to add another medication. Review of Systems Cardiovascular: Positive for syncope. Hematologic/Lymphatic: Bruises/bleeds easily. All other systems reviewed and are negative. [facility] 01-11-2023 Note [facility] CARDIOLOGY PROGR ESS NOTE HPI: Hiram Madrid is a 87 y.o. female here for routine 3 month F/U HPI Pt presents for routine follow up carotid and subclavian artery stenosis, aortic valve stenosis, and hypertension. She had ECG and labs in Dec 2021. Denies chest pain, SOB. Admits occasional palpitations and feeling like her heart is pounding in my throat States that she has had 5 syncopal episodes since this Summer, 2 of which she had EMS called and was evaluated in ED at [facility]. Admits she has had a couple syncopal episodes in the bathroom while having a BM- last one was at [facility]. States she also has had a couple while just up and walking- normal Day to Day activity. Daughter states that pt is usually out for about 1 minute. Of note patient was direct admitted to the [facility] end of August for electrolyte imbalances low sodium, low potassium, and acute anemia. She was evaluated at [facility] in October for ABD pain/ syncope, and for syncope in November- HPI - Abdominal Pain General Chief Complaint: Abdominal Pain Stated Complaint: syncopy and hematuria Time Seen by Provider: 11/10/22 20:50 Source: patient and family History of Present Illness HPI narrative: This 86-year-old female with a history of syncopal events who was admitted in July and required 2 units of blood after having some gastrointestinal bleeding presents for evaluation of recurrent gastrointestinal bleeding and left lower quadrant abdominal pain. The patient states she was shopping in [employer] when she felt the need to have a bowel movement. She went to the bathroom and had a bowel movement and shortly thereafter had an episode where she felt dizzy like she was going to faint. She states she may have passed out for a couple of seconds but somebody was able to get her into a wheelchair before she fell. She states she then went home and rested. He states she had some mild stomach cramping and took some Pepto-Bismol and when she got up to use the bathroom there was a small pool of blood in the toilet. She states this happened approximately 3 times. She has intermittent left lower quadrant abdominal pain and at times mild nausea. She denies any chest pain or shortness of breath. She did have a colonoscopy approximately 5 years ago at [facility]. HPI - Altered Mental Status General Chief Complaint: Altered Mental Status Stated Complaint: syncope Time Seen by Provider: 12/10/22 14:40 Source: patient Mode of arrival: ambulance Limitations: no limitations History of Present Illness HPI narrative: Patient presenting to us with a episode of syncope that happened before arrival according to her she was trying to get to the bathroom after she took some laxative but there was someone in the bathroom in the orthodox and she have to go back and sit down and while she was sitting down she passed out according to the family they said maybe around 5 minutes, when she woke up she had no complaint she did go to the bathroom upon arrival and she is denying any abdominal pain nausea vomiting and she is back to normal Right this moment the patient have no complaints and she mentioned that this episode happened to her multiple times and most of the time it is associated with a bowel movement The patient does have a history of hypokalemia as well MDM - Altered Mental Status MDM Narrative Medical decision making narrative: The patient EKG is showing sinus rhythm with a heart rate of [address] elevation or depression The patient blood work-up showed that she have some hyponatremia that is more than her baseline as well as hypokalemia and hypomagnesemia otherwise her work-up did not show any acute significant pathology The patient had no complaint at all while she was in the ER and her symptoms resolved upon waking up from the syncopal episode and she had a bowel movement after that The patient presentation is mostly secondary to vasovagal The patient yet had her sodium and potassium manage in the ER with mild replacement of IV and p.o. potassium as well as magnesium The patient to follow-up with her primary care doctor within a week for further evaluation management and to come back in case of any symptoms Visit Vitals BP 164/78 (BP Location: Left arm, Patient Position: Standing) Pulse 80 Ht 1.549 m (5' 1 ) Wt 64 kg (141 lb) SpO2 97% BMI 26.64 kg/m??? Smoking Status Never BSA 1.66 m??? Allergies Allergen Reactions Atorvastatin Prednisone Hives Medications: Current Outpatient Medications on File Prior to Visit Medication Sig Dispense Refill amLODIPine (Norvasc) 10 mg tablet Take by mouth in the morning. carvedilol (Coreg) 25 mg tablet Take 1 tablet (25 mg) by mouth with breakfast and with evening meal. 180 tablet 3 hydroCHLOROthiazide (HYDRODiuril) 25 mg tablet Take 1 tablet (25 mg) by mouth once daily as directed. 90 tablet 3 levothyroxine (Syn (more content not included)... [facility] 12-22-2022 Hospital Discharge instructions Patient Education 12/22/2022 12:24:19 Hydronephrosis Hydronephrosis Hydronephrosis is the swelling of one or both kidneys due to a blockage that stops urine from flowing out of the body. Kidneys filter waste from the blood and produce urine. This condition can lead to kidney failure and may become life-threatening if not treated promptly. What are the causes? In infants and children, common causes include problems that occur when a baby is developing in the womb. These can include problems in the kidneys or in the tubes that drain urine into the bladder (ureters). In adults, common causes include: Kidney stones. . A tumor or cyst in the abdomen or pelvis. An enlarged prostate gland. Other causes include: Bladder infection. Scar tissue from a previous surgery or injury. A blood clot. Cancer of the prostate, bladder, uterus, ovary, or colon. What are the signs or symptoms? Symptoms of this condition include: Pain or discomfort in your side (flank) or abdomen. Swelling in your abdomen. Nausea and vomiting. Fever. Pain when passing urine. Feelings of urgency when you need to urinate. Urinating more often than normal. In some cases, you may not have any symptoms. How is this diagnosed? This condition may be diagnosed based on: Your symptoms and medical history. A physical exam. Blood and urine tests. Imaging tests, such as an ultrasound, CT scan, or MRI. A procedure to look at your urinary tract and bladder by inserting a scope into the urethra (cystoscopy). How is this treated? Treatment for this condition depends on where the blockage is, how long it has been there, and what caused it. The goal of treatment is to remove the blockage. Treatment may include: Antibiotic medicines to treat or prevent infection. A procedure to place a small, thin tube (stent) into a blocked ureter. The stent will keep the ureter open so that urine can drain through it. A nonsurgical procedure that crushes kidney stones with shock waves (extracorporeal shock wave lithotripsy). If kidney failure occurs, treatment may include dialysis or a kidney transplant. Follow these instructions at home: Take qiis-vam-gkshyqp and prescription medicines only as told by your health care provider. If you were prescribed an antibiotic medicine, take it exactly as told by your health care provider. Do not stop taking the antibiotic even if you start to feel better. Rest and return to your normal activities as told by your health care provider. Ask your health care provider what activities are safe for you. Drink enough fluid to keep your urine pale yellow. Keep all follow-up visits. This is important. Contact a health care provider if: You continue to have symptoms after treatment. You develop new symptoms. Your urine becomes cloudy or bloody. You have a fever. Get help right away if: You have severe flank or abdominal pain. You cannot drink fluids without vomiting. Summary Hydronephrosis is the swelling of one or both kidneys due to a blockage that stops urine from flowing out of the body. Hydronephrosis can lead to kidney failure and may become life-threatening if not treated promptly. The goal of treatment is to remove the blockage. It may include a procedure to insert a stent into a blocked ureter, a procedure to break up kidney stones, or taking antibiotic medicines. Follow your health care provider's instructions for taking care of yourself at home, including instructions about drinking fluids, taking medicines, and limiting activities. This information is not intended to replace advice given to you by your health care provider. Make sure you discuss any questions you have with your health care provider. Document Revised: 05/26/2020 Document Reviewed: 05/26/2020 [employer] Patient Education 2022 [employer] Follow Up Care 09/06/2022 13:10:43 With:ABDULLAHI NOONAN, MIKAYLA Randall, URL Address: [address] [place] [address] [id number] When: Unknown Comments:6 mos w/ renal fxn (per PCP) [facility] Natalya 10-25-2022 Note Pt message/ call jorge luis t she is having increased leg swelling and water retention with known Diastolic dysfunction and valvular abnormalities. Therefore, will send script for lasix 20 mg daily as needed for 2-3 day duration and then stop, along with extra potassium 20 meq daily for the 2-3 days and then also stop and return to her normal home dose of Potassium Asked staff to call pt with instructions and if leg swelling does not improve she needs to call for appointment Lesly Alaniz TRAFFIC AGENT Division of Cardiology, [facility]- [phone] Pager- [phone] Email- [email or web address] 10-14-2022 Note Stable and non pitting currently [facility] 10-14-2022 Note Currently stable Pt to call for any recurrent syncope or concerns [facility] 10-14-2022 Note Mild on recent echo No concerning symptoms [facility] 10-14-2022 Note Continue ASA and statin [facility] 10-14-2022 Note Hypertension is unco ntrolled 160/75- admits this is where her b/p is at home Increase coreg to 25 mg bid, continue losartan 100 mg, hydrochlorothiazide 25 mg, and amlodipine 10 mg [facility] 10-14-2022 Note Continue pravastatin [facility] 10-14-2022 Note No concerning sympto ms Will continue to monitor with echocardiogram [facility] 10-14-2022 Note No concerning sympto ms Will continue to monitor with echocardiogram [facility] 10-14-2022 Note Patient here c/o LE edema. Says today they aren't as bad, but she states they're hard and sometimes painful. She has not had lab work since [facility] stay in July 2022. She denies chest pain, lightheadedness, and palpitations. Review of Systems Cardiovascular: Positive for dyspnea on exertion and leg swelling. Hematologic/Lymphatic: Bruises/bleeds easily. All other systems reviewed and are negative. [facility] 10-14-2022 Note [facility] CARDIOLOGY PROGR ESS NOTE HPI: Hiram Madrid is a 86 y.o. female here for routine F/U HPI Pt presents for routine follow up carotid and subclavian artery stenosis, aortic valve stenosis, and hypertension. Says she still has constant LE pain with ambulation. She had ECG and labs in Dec 2021. Denies chest pain, SOB, or syncope Of note patient was direct admitted to the [facility] end of August for electrolyte imbalances low sodium, low potassium, and acute anemia. Review of Systems Constitutional: Negative. Respiratory: Negative. Cardiovascular: Positive for leg swelling. Neurological: Positive for dizziness, syncope and light-headedness. All other systems reviewed and are negative. Visit Vitals BP 160/75 (BP Location: Left arm, Patient Position: Sitting) Pulse 70 Ht 1.549 m (5' 1 ) Wt 66.2 kg (146 lb) SpO2 96% BMI 27.59 kg/m??? Smoking Status Never BSA 1.69 m??? Allergies Allergen Reactions Atorvastatin Prednisone Hives Medications: Current Outpatient Medications on File Prior to Visit Medication Sig Dispense Refill amLODIPine (Norvasc) 10 mg tablet amlodipine 10 mg tablet aspirin 81 mg EC tablet in the morning. hydroCHLOROthiazide (HYDRODiuril) 25 mg tablet Take 1 tablet (25 mg) by mouth once daily as directed. 90 tablet 3 levothyroxine (Synthroid, Levoxyl) 88 mcg tablet losartan (Cozaar) 100 mg tablet losartan 100 mg tablet pantoprazole (ProtoNix) 40 mg EC tablet potassium chloride (Klor-Con) 20 mEq packet Take 20 mEq by mouth in the morning, at noon, and at bedtime. pravastatin (Pravachol) 80 mg tablet pravastatin 80 mg tablet TAKE 1 TABLET BY MOUTH ONCE DAILY [DISCONTINUED] carvedilol (Coreg) 12.5 mg tablet Take 1 tablet (12.5 mg) by mouth with breakfast and with evening meal. 180 tablet 3 [DISCONTINUED] carvedilol (Coreg) 6.25 mg tablet carvedilol 6.25 mg tablet TAKE 1 TABLET BY MOUTH TWICE DAILY No current facility-administered medications on file prior to visit. Physical Exam: Constitutional: Appearance: Normal appearance. Without apparent distress HENT: Head: Normocephalic and atraumatic. Nose: Nose normal. Mouth/Throat: Mouth: Mucous membranes are moist. Eyes: Extraocular Movements: Extraocular movements intact. Conjunctiva/sclera: Conjunctivae normal. Neck: Vascular: No JVD. Cardiovascular: Rate and Rhythm: Normal rate and regular rhythm. Pulses: Dorsalis pedis pulses are 3 on the right side and 3on the left side. Posterior tibial pulses are 3 on the right side and 3 on the left side. Heart sounds: Normal heart sounds, S1 normal and S2 normal. Pulmonary: Effort: Pulmonary effort is normal. Breath sounds: Normal breath sounds. Abdominal: General: Bowel sounds are normal. Palpations: Abdomen is soft. Musculoskeletal: General: Normal range of motion. Cervical back: Normal range of motion. Right lower le-3 non pitting edema. Left lower le-3+ non pitting edema. Skin: General: Skin is warm and dry. Capillary Refill: Capillary refill takes less than 2 seconds. Neurological: General: No focal deficit present. Mental Status: She is alert and oriented to person, place, and time. Psychiatric: Mood and Affect: Mood normal. Behavior: Behavior normal. Thought Content: Thought content normal. Judgment: Judgment normal. Labs: 08/17/22 CBC stable, renal function and liver function normal Last lab values have been reviewed CV Testin04/2022 Echo- reviewed with pt 06/2021 No echocardiogram results found for the past 12 months Assessment/Plan: Tricuspid valve regurgitation No concerning symptoms Will continue to monitor with echocardiogram Nonrheumatic aortic valve insufficiency No concerning symptoms Will continue to monitor with echocardiogram Hyperlipidemia Continue pravastatin Essential hypertension Hypertension is uncontrolled 160/75- admits this is where her b/p is at home Increase coreg to 25 mg bid, continue losartan 100 mg, hydrochlorothiazide 25 mg, and amlodipine 10 mg Carotid artery stenosis Continue ASA and statin Aortic valve stenosis Mild on recent echo No concerning symptoms Vasovagal syncope Currently stable Pt to call for any recurrent syncope or concerns Edema of lower extremity Stable and non pitting currently RTC 3-6 months [facility] 04-04-2022 Note [facility] Cardiology Clinic Note Chief Complaint: Patient here for 6 mo follow up carotid and subclavian artery stenosis, aortic valve stenosis, and hypertension. Says she still has constant LE pain with ambulation. She had ECG and labs in Dec 2021. Denies chest pain, SOB, and recurrent syncope. Says her BP was 160/64 when she checked it earlier today at home. HPI: Doing well overall; no new cardiovascular symptoms Pertinently, no exertional chest pain or shortness of breath. No orthopnea, no paroxysmal external dyspnea, no lower extremity edema. Denies palpitation Blood pressure at home is not as high as today but he still elevated Cardiology ROS: Review of Systems Cardiovascular: Positive for leg swelling. All other systems reviewed and are negative. Past Medical History She has no past medical history on file. Surgical History She has no past surgical history on file. Social History She has no history on file for tobacco use, alcohol use, and drug use. Family History No family history on file. Allergies Atorvastatin and Prednisone Medications Current Outpatient Medications: pravastatin (Pravachol) 80 mg tablet, pravastatin 80 mg tablet TAKE 1 TABLET BY MOUTH ONCE DAILY, Disp: , Rfl: amLODIPine (Norvasc) 10 mg tablet, amlodipine 10 mg tablet, Disp: , Rfl: aspirin 81 mg EC tablet, in the morning., Disp: , Rfl: carvedilol (Coreg) 6.25 mg tablet, carvedilol 6.25 mg tablet TAKE 1 TABLET BY MOUTH TWICE DAILY, Disp: , Rfl: hydroCHLOROthiazide (HYDRODiuril) 25 mg tablet, hydrochlorothiazide 25 mg tablet, Disp: , Rfl: levothyroxine (Synthroid, Levoxyl) 88 mcg tablet, , Disp: , Rfl: losartan (Cozaar) 100 mg tablet, losartan 100 mg tablet, Disp: , Rfl: potassium chloride (Klor-Con) 20 mEq packet, Take 20 mEq by mouth., Disp: , Rfl: Last Recorded Vitals Patient Vitals for the past 24 hrs: BP Pulse SpO2 Height Weight 04/04/22 1442 (!) 185/75 88 96 % 1.549 m (5' 1 ) 66.2 kg (146 lb) Physical Examination: GENERAL: alert and oriented x3, well developed, in no acute distress. HEAD: atraumatic, normocephalic. EYES: MARIE, EOMI. NECK: trachea midline, no JVD present, no carotid bruits present. CARDIAC: S1, S2 present. RRR. Harsh ejection systolic murmur heard best over the second right intercostal space, rubs, or gallops. RESPIRATORY: CTAB, no increased effort of breathing, no rales, rhonchi, or wheezing. ABDOMEN: soft, nontender, nondistended. EXTREMITIES: no lower extremity edema, peripheral pulses are 2+ bilaterally. No rash/skin discoloration present. NEURO: strength/sensation equal and symmetric in bilateral upper and lower extremities. PSYCH: appropriate mood, affect, and judgement. Assessment: 1. Edema of lower extremity - stable R60.0: Localized edema LEG AND ANKLE EDEMA: CARE INSTRUCTIONS 2. Hyperlipidemia - Continue pravastatin Continue heart healthy low-cholesterol diet Cholesterol levels remain stable reviewed with her previous trends E78.2: Mixed hyperlipidemia HIGH CHOLESTEROL: CARE INSTRUCTIONS 3. Essential hypertension - Uncontrolled typically per B/P log she is 140-150/70-80 and in light of 2 episodes of near syncope I will allow her b/p to remain at this level to prevent syncope and collapse. I10: Essential (primary) hypertension HIGH BLOOD PRESSURE: CARE INSTRUCTIONS LEARNING ABOUT HIGH BLOOD PRESSURE 4. Syncope - defecation/micturition syncope change position slowly, adequate hydration and she keeps a seat riser with arms on her toilet R55: Syncope and collapse FAINTING: CARE INSTRUCTIONS LIGHTHEADEDNESS OR FAINTNESS: CARE INSTRUCTIONS 5. Bilateral carotid artery stenosis - ASYMPTOMATIC (60-70% by CTA, <50% on U/S) continue statin I65.23: Occlusion and stenosis of bilateral carotid arteries 6. Subclavian artery stenosis - LSCA 60% on CT neck; anterograde vertebral flow I70.8: Atherosclerosis of other arteries 7. Aortic valve stenosis - MILD (01/2017) no acute symptoms I35.0: Nonrheumatic aortic (valve) stenosis AORTIC VALVE STENOSIS: CARE INSTRUCTIONS 8. Carotid artery stenosis - Carotid artery ultrasound completed 06/22/21 <50% flow stenosis bilateral ICA No concerning neurological deficits or stroke symptoms at this time Discussed with patient when to call 911 for any stroke symptoms reviewed FAST I65.29: Occlusion and stenosis of unspecified carotid artery 9. Intermittent claudication - GIL- nondiagnostic r/t intolerance to adequate inflation of cuffs I73.9: Peripheral vascular disease, unspecified Plan: Repeat carotid Dopplers in June 2022 to serially monitor her carotid stenosis A complete echocardiogram to serially monitor her valvular heart disease Continue optimal medical therapy for vascular disease including aspirin, moderate to high intensity statin therapy, and an angiotensin receptor yadira. She is also on a beta-yadira Will increase Coreg to 12.5 mg p.o. twice dominic (more content not included)... [facility] Evaluation + Plan note No data available for this section [facility] Evaluation + Plan note Future Appointments Appointment Date:06/29/2023 09:30:00 AM Scheduled Provider:MIKAYLA WEISS PA-C Location:[facility] Appointment Type:URO Office Visit [facility] Evaluation note No assessment inform ation available [facility] Work Phone: Hospital Discharge instructions No data available for this section [facility] Hospital Discharge instructions Additional Instructions Take Naprosyn as prescribed for mild to moderate pain. Take Keflex as prescribed to prevent infection. Take Zofran as prescribed for nausea while taking oxycodone. Do not drive while taking oxycodone. Take Flomax daily as prescribed. Call the urologist listed below on Monday to schedule follow-up appointment. Return to emergency department for any fevers or chills or intractable nausea vomiting. [facility] Work Phone: Progress note No data available for this section [facility] Summary Purpose Family History No Family History Records FoundNo Family History Records FoundNo Family History Records FoundNo Family History Records Found No data available for this section No Family History Records FoundNo Family History Records Found Advance Directives No Advanced Directives Records FoundDocuments on File Type Date Recorded Patient Assistant Activities Director Expl anation Advance Directives and Living Will Power of Chief Order Dispatcher Latest Code Status on File Code Status Date Activated Date Inactivated Comments Full Code 11/05/2018 6:34 PM Full Code 11/04/2018 5:08 PM 11/05/2018 6:34 PM Documents on File Type Date Recorded Patient Assistant Activities Director Expl anation Advance Directives and Livin g Will Advance Directives and Livin g Will 11/06/2018 1:08 AM AD info sheets Power of Chief Order Dispatcher Latest Code Status on File Code Status Date Activated Date Inactivated Comments Full Code 11/15/2018 9:48 PM Full Code 11/15/2018 3:32 PM 11/15/2018 9:48 PM Full Code 11/13/2018 4:05 PM 11/15/2018 3:29 PM Full Code 11/05/2018 6:34 PM 11/05/2018 10:30 PM Full Code 11/04/2018 5:08 PM 11/05/2018 6:34 PM Advance Directive Response Recorded Date/ Time Advance Directives Yes October 16, 2019 11:14am Discharge Instructions * Discharge Instr - Activity* Sommer Dinh RN - 11/05/2018 7:06 PM EDT Up as tolerated safely * Attachments The following attachments cannot be sent through Care Everywhere. * Back Pain (Dutch) documented in this encounter* Discharge Instr - Activity* Sammie Ley RN - 11/20/2018 3:17 PM EDT Continue to follow direction learned in therapy sessions * Discharge Instr - Diet* Sammie Ley RN - 11/20/2018 3:17 PM EDT ? Continue to follow general diet while at home ? Good nutrition is important when healing from an illness, injury, or surgery. Follow any nutrition recommendations given to you during your hospital stay. ? If you were given an oral nutrition supplement while in the hospital, continue to take this supplement at home. You can take it with meals, in-between meals, and/or before bedtime. These supplements can be purchased at most local grocery stores, pharmacies, and [employer]-stores. ? If you have any questions about your diet or nutrition, call the hospital and ask for the dietitian. * Discharge Instr - Lab* Ursula Bridges RN - 11/20/2018 3:52 PM EDT Labs in 2 days (11/22/18) CBC results to Dr. Corral. * Discharge Instr - Other Orders* Ursula Bridges RN - 11/20/2018 3:35 PM EDT Dressing change to back daily, apply Neosporin to incision, dry sterile stressing and tape to cover. Home Health Care with discharge to draw CBC Lab in 2 days results to be sent to Dr. Corral. * Discharge Instr - CASSI* María Matos RN - 11/20/2018 3:05 PM EDT Continuity of Care Form Patient Name: Hiram Madrid : 1935 Admit date: 11/15/2018 Discharge date: 11/20/18 Code Status Order: Full Code Advance Directives: Advance Care Flowsheet Documentation Date/Time Healthcare Directive Type of Healthcare Directive Copy in Chart Healthcare Agent Appointed Healthcare Agent's Name Healthcare Agent's Phone Number 11/16/18 1113 No, patient does not have an advance directive for healthcare treatment -- -- -- -- -- 11/15/18 1605 No, patient does not have an advance directive for healthcare treatment -- -- -- -- -- Admitting Physician: Mary Vega MD PCP: Calista Aceves MD Discharging Nurse: Discharging Hospital Unit/Room#: R238/R238-01 Discharging Unit Phone Number: Emergency Contact: Extended Emergency Contact Information Primary Emergency Contact: Andrea Madrid [facility] Mobile Relation: Spouse Secondary Emergency Contact: Townsend Liliya Mobile Relation: Child Pipeline Technician needed? No Past Surgical History: Past Surgical History: Procedure Laterality Date APPENDECTOMY BACK SURGERY CHOLECYSTECTOMY LUMBAR FUSION N/A 11/13/2018 PLIF L 3-4-5 DECOMPRESSION L3, L4 performed by Lenny Corral MD at [facility] [place] Right Immunization History: There is no immunization history on file for this patient. Active Problems: Patient Active Problem List Diagnosis Code Intractable back pain M54.9 Lumbar spondylosis M47.816 Impaired mobility Z74.09 Spinal stenosis of lumbosacral region M48.07 Vasovagal syncope R55 Isolation/Infection: Isolation No Isolation Nurse Assessment: Last Vital Signs: BP (!) 153/61 Pulse 75 Temp 97 F (36.1 C) (Oral) Resp 17 Ht 5' 1 (1.549 m) Wt 146 lb 2.6 oz (66.3 kg) SpO2 97% BMI 27.62 kg/m Last documented pain score (0-10 scale): Pain Level: 4 Last Weight: Wt Readings from Last 1 Encounters: 11/17/18 146 lb 2.6 oz (66.3 kg) Mental Status: oriented and alert IV Access: - None Nursing Mobility/ADLs: Walking Assisted Transfer Assisted Bathing Assisted Dressing Independent Toileting Independent Feeding Independent Home Teaching Grades 9 Thru 12 Teacher Independent Med Delivery whole Wound Care Documentation and Therapy: Elimination: Continence: Bowel: Yes Bladder: Yes Urinary Catheter: None Colostomy/Ileostomy/Ileal Conduit: No Date of Last BM: 11/20/18 Intake/Output Summary (Last 24 hours) at 11/20/2018 1505 Last data filed at 11/19/2018 1854 Gross per 24 hour Intake Output 1 ml Net -1 ml I/O last 3 completed shifts: In: - Out: 1 [Urine:1] Safety Concerns: None Impairments/Disabilities: None Nutrition Therapy: Current Nutrition Therapy: - Oral Diet: General Routes of Feeding: Oral Liquids: Thin Liquids Daily Fluid Restriction: no Last Modified Barium Swallow with Video (Video Swallowing Test): {Done Not Done Date:} Treatments at the Time of Hospital Discharge: Respiratory Treatments: Oxygen Therapy: is not on home oxygen therapy. Ventilator: - No ventilator support Rehab Therapies: Physical Therapy and Occupational Therapy Weight Bearing Status/Restrictions: No weight bearing restirctions Other Medical Equipment (for information only, NOT a DME order): walker Other Treatments: Patient's personal belongings (please select all that are sent with patient): {[facility] D[facility] Belongings:[id number]} RN SIGNATURE: MANAGEMENT/SOCIAL WORK SECTION Inpatient Status Date: Patient was admitted to Inpatient Acute Rehab 11/15/18 Readmission Risk Assessment Score: Readmission Risk Risk of Unplanned Readmission: 12 Discharging to Facility/ Agency Name: [facility] Address: Fax: Dialysis Facility (if applicable) Name: Address: Dialysis Schedule: Phone: Fax: [facility] Consultant signature: ICIAN SECTION Prognosis: Good Condition at Discharge: Stable Rehab Potential (if transferring to Rehab): Good Recommended Labs or Other Treatments After Discharge: Physician Certification: I certify the above information and transfer of Hiram Madrid is necessary for the continuing treatment of the diagnosis listed and that she requires Home Care for 30 days. Update Admission H&P: No change in H&P PHYSICIAN SIGNATURE: * Additional Instructions* Lenny Corral MD - 11/20/2018 documented in this encounter History of Present Illness * Barbara Manrique RN - 11/05/2018 4:39 AM EDT 2133: Shift assessment complete at this time. Will continue to monitor throughout this shift. documented in this encounter* Michelle Sharp OTR/Lloyd - 11/20/2018 4:46 PM EDT TASHIA STARK OCCUPATIONAL THERAPY DISCHARGE SUMMARY- REHAB Date: 11/20/2018 Patient Name: Hiram Madrid Account: [id number] : 1935 (83 y.o.) Room: [place] [address] Diagnosis: Impaired mobility and gait secondary to NTSCI secondary to lumbar stenosis, radiculopathy, and spondylosis Past Medical History: Diagnosis Date Arthritis CAD (coronary artery disease) Hyperlipidemia Hypertension diabetes mellitus, congenital hypothyroidism, congenital glaucoma, hepatic fibrosis, and polycystic kidney syndrome (HCC) Other disorders of kidney and ureter in diseases classified elsewhere Thyroid disease Past Surgical History: Procedure Laterality Date APPENDECTOMY BACK SURGERY CHOLECYSTECTOMY LUMBAR FUSION N/A 11/13/2018 PLIF L 3-4-5 DECOMPRESSION L3, L4 performed by Lenny Corral MD at [facility] [place] OR [facility] Right Precautions: Restrictions/Precautions: Fall Risk Other position/activity restrictions: no brace - per nursing communication Social/Functional History: Social/Functional History Lives With: Spouse Type of Home: House Home Layout: One level Home Access: Stairs to enter with rails Entrance Stairs - Number of Steps: 2 Entrance Stairs - Rails: Both Bathroom Shower/Tub: Walk-in shower Bathroom Equipment: Shower chair, Grab bars in shower, Hand-held shower Home Equipment: 4 wheeled walker, Cane Receives Help From: Family ADL Assistance: Independent Homemaking Assistance: Independent Homemaking Responsibilities: Yes Meal Prep Responsibility: Primary Laundry Responsibility: Primary Cleaning Responsibility: Primary Bill Paying/Finance Responsibility: Primary Shopping Responsibility: Primary Ambulation Assistance: Independent(has been using cane the past week or 2 due to increasing pain) Transfer Assistance: Independent Active Long Term: Yes Mode of Transportation: Car 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 Leisure & Hobbies: Cooking, reading, needlepoint Additional Comments: 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, has been relying more on dtr and spouse due toworsening weakness past few weeks Current Functional Status: ADL Equipment Provided: Sock aid, Plumbing Mechanic Feeding: Modified independent Grooming: Independent UE Bathing: Modified independent LE Bathing: Modified independent UE Dressing: Modified independent LE Dressing: Modified independent Toileting: Modified independent Toilet Transfers Toilet - Technique: Ambulating Equipment Used: Grab bars Toilet Transfer: Modified independent Tub Transfers Tub Transfers: Not tested Shower Transfers Shower - Transfer From: Walker Shower - Transfer Type: To and From Shower - Transfer To: Shower seat with back Shower - Technique: Ambulating Shower Transfers: Supervision Shower Transfers Comments: Patient performs sponge bath at sink Orientation Status: Orientation Overall Orientation Status: Within Functional Limits Cognition Status: Cognition Overall Cognitive Status: [facility] Cognition Comment: 6 7 7 6 6 Perception Status: Perception Overall Perceptual Status: [facility] Sensation Status: Sensation Overall Sensation Status: [facility] Vision and Hearing Status: Vision Vision: Impaired Vision Exceptions: Wears glasses for reading Hearing Hearing: Exceptions to [facility] Hearing Exceptions: Hard of hearing/hearing concerns, Right hearing aid UE Function Status: ROM: LUE AROM (degrees) LUE AROM : WFL Left Hand AROM (degrees) Left Hand AROM: WFL RUE AROM (degrees) RUE AROM : WFL Right Hand AROM (degrees) Right Hand AROM: WFL Strength: LUE Strength LUE Strength Comment: Gross Assessment: 3+/5 RUE Strength RUE Strength Comment: Gross Assessment: 3+/5 Coordination, Tone, Quality of Movement: Tone RUE RUE Tone: Normotonic Tone LUE LUE Tone: Normotonic Coordination Movements Are Fluid And Coordinated: Yes D/C Recommendations: Equipment Recommendations: OT D/C Equipment Equipment Needed: No OT Follow Up: OT D/C RECOMMENDATIONS REQUIRES OT FOLLOW UP: No Home Exercise Program Provided: No If yes, type of HEP: Electronically signed by: AGUSTIN Langford OTR/L 11/20/2018, 4:46 PM * Yarely Zarate - 11/20/2018 12:35 PM EDT [facility] MUSIC THERAPY Date: 11/20/2018 Patient Name: Hiram Madrid Date of : 1935 (83 y.o.) Gender: female Diagnosis: Impaired mobility and gait secondary to NTSCI secondary to lumbar stenosis, radiculopathy, and spondylosis Referring Practitioner: Dr. Coker RESTRICTIONS/PRECAUTIONS: Restrictions/Precautions: Fall Risk Vision: Impaired Hearing: Exceptions to WFL Hearing Exceptions: Hard of hearing/hearing concerns, Right hearing aid TIME OF SESSION: 11:40am - 12:00pm SUBJECTIVE: I'd like some gospel music. OBJECTIVE: [x] To Improve Mood [x] To Increase Social Well-Being [] To Increase Focus [x] To Increase Emotional Well-Being [] To Increase Eye Contact [x] To Increase Spiritual Well-Being [] To Decrease Anxiety [x] To Increase Relaxation [x] To Decrease Pain [] To Increase Communication [] To Increase Movement to Music MUSIC INTERVENTION PROVIDED: [x] Live Music on Voice [] Recorded Music [x] Live Music on Guitar [x] Discussion Related to Music [] Live Music on Q-chord [x] Discussion Related to Pt Experience [] Live Music on Percussion PARTICIPATION LEVEL OF PATIENT: [x] Active with discussion [] Passive with discussion [] Active with singing [x] Passive with singing [] Active with instrument playing [] Passive with instrument playing [x] Actively listening to music [] Passively listening to music. OUTCOMES OBSERVED: [x] Improved Mood [x] Increased Social Well-Being [] Increased Focus [x] Increased Emotional Well-Being [] Increased Eye Contact [x] Increased Spiritual Well-Being [] Decreased Anxiety [x] Increased Relaxation [x] Decreased Pain [] Increased Communication [] Increased Movement to Music PAIN ASSESSMENT Before MT: [] No [x] Yes Location: lower back Ratin/10 Comment(s): After MT: [] No [x] Yes Location: lower back Ratin10 Comment(s): ANXIETY ASSESSMENT Before MT: [x] No [] Yes Rating: /10 Comment(s): After MT: [x] No [] Yes Rating: /10 Comment(s): ASSESSMENT/OBSERVATIONS: Patient tolerated today s treatment session: [x] Good [] Fair [] Poor Comment(s): Pt sitting up in bed, alert and oriented x3 with some c/o pain in her lower back. Pt eating her lunch at this time. Pt actively engaged in music therapy by discussing music interests, discussing topics r/t the music, making song selections, and actively listening to the music. Pt responded positively to the music therapy as evidence by improved mood, increased relaxation and making positive comments about the music therapy. PLAN: [x] Pt interested in having music therapy again. [] [facility] will attempt to see pt again another day, if time allows. [x] Pt's planned d/c date is before NC- is scheduled on unit again. [] Pt NOT interested in having music therapy again. [facility] * Roselyn Schroeder OTA - 11/20/2018 9:59 AM EDT Occupational Therapy Facility/Department: [facility] [place] [facility] Daily Treatment Note NAME: Hiram Madrid : 1935 Date of Service: 11/20/2018 Discharge Recommendations: Continue to assess pending progress Assessment REQUIRES OT FOLLOW UP: No Activity Tolerance Activity Tolerance: Patient Tolerated treatment well Safety Devices Safety Devices in place: Yes(no gait belt due to back surgery) Type of devices: All fall risk precautions in place Patient Diagnosis(es): The encounter diagnosis was Spinal stenosis of lumbosacral region. has a past medical history of Arthritis, CAD (coronary artery disease), Hyperlipidemia, Hypertension, diabetes mellitus, congenital hypothyroidism, congenital glaucoma, hepatic fibrosis, andpolycystic kidney syndrome (HCC), Other disorders of kidney and ureter in diseases classified elsewhere, and Thyroid disease. has a past surgical history that includes back surgery; Cholecystectomy; Appendectomy; tessa and bso (cervix removed) (Right); and lumbar fusion (N/A, 11/13/2018). Restrictions Restrictions/Precautions Restrictions/Precautions: Fall Risk Position Activity Restriction Spinal Precautions: No Bending, No Lifting, No Twisting Other position/activity restrictions: no brace - per nursing communication Subjective General Chart Reviewed: Yes Patient assessed for rehabilitation services?: Yes Family / Caregiver Present: Yes(Spouse and daughter) Referring Practitioner: Dr. Coker Diagnosis: Impaired mobility and gait secondary to NTSCI secondary to lumbar stenosis, radiculopathy, and spondylosis Pain Assessment Pain Assessment: 0-10 Pain Level: 4 Pain Type: Surgical pain Pain Location: Back Pain Orientation: Lower Pain Descriptors: Aching Pain Frequency: Continuous Pre Treatment Pain Screening Pain at present: 4 Scale Used: Numeric Score Intervention List: Patient able to continue with treatment Vital Signs Patient Currently in Pain: Yes Orientation Orientation Overall Orientation Status: Within Functional Limits Objective Pt. was seen to complete strengthening exercises at below status. Type of ROM/Therapeutic Exercise Type of ROM/Therapeutic Exercise: Free weights Comment: 2 lb weight Exercises Shoulder Flexion: 1 set x 10 reps Shoulder Extension: 1 set x 10 reps Elbow Flexion: 1 set x 10 reps Elbow Extension: 1 set x 10 reps Wrist Flexion: 1 set x 10 reps Wrist Extension: 1 set x 10 reps LUE AROM (degrees) LUE AROM : WFL RUE AROM (degrees) RUE AROM : WFL Plan Plan Times per week: 5-7x/week Times per day: Daily Plan weeks: 1 Current Treatment Recommendations: Strengthening, Balance Training, Functional Mobility Training, Endurance Training, Patient/Caregiver Education & Training, Equipment Evaluation, Education, & procurement, Neuromuscular Re-education, Self-Care / ADL, Home Management Training, Positioning, Cognitive/Perceptual Training, Safety Education & Training Plan Comment: Continue with OT POC Goals Patient Goals Patient goals : To walk on my own, go home and do regular chores and things Therapy Time Individual Concurrent Group Co-treatment Time In 0930 Time Out 0940 Minutes 10 CARLA Martinez * Roselyn Schroeder OTA - 11/20/2018 9:55 AM EDT Occupational Therapy Facility/Department: [facility] [place] [facility] Daily Treatment Note NAME: Hiram Madrid : 1935 Date of Service: 11/20/2018 Discharge Recommendations: Continue to assess pending progress Assessment Activity Tolerance Activity Tolerance: Patient Tolerated treatment well Safety Devices Safety Devices in place: Yes(no gait belt due to back surgery) Type of devices: All fall risk precautions in place Patient Diagnosis(es): The encounter diagnosis was Spinal stenosis of lumbosacral region. has a past medical history of Arthritis, CAD (coronary artery disease), Hyperlipidemia, Hypertension, diabetes mellitus, congenital hypothyroidism, congenital glaucoma, hepatic fibrosis, andpolycystic kidney syndrome (HCC), Other disorders of kidney and ureter in diseases classified elsewhere, and Thyroid disease. has a past surgical history that includes back surgery; Cholecystectomy; Appendectomy; tessa and bso (cervix removed) (Right); and lumbar fusion (N/A, 11/13/2018). Restrictions Restrictions/Precautions Restrictions/Precautions: Fall Risk Position Activity Restriction Spinal Precautions: No Bending, No Lifting, No Twisting Other position/activity restrictions: no brace - per nursing communication Subjective General Chart Reviewed: Yes Patient assessed for rehabilitation services?: Yes Family / Caregiver Present: Yes(Spouse and daughter) Referring Practitioner: Dr. Coker Diagnosis: Impaired mobility and gait secondary to NTSCI secondary to lumbar stenosis, radiculopathy, and spondylosis Pain Assessment Pain Assessment: 0-10 Pain Level: 4 Pain Type: Surgical pain Pain Location: Back Pain Orientation: Lower Pain Descriptors: Aching Pain Frequency: Continuous Pre Treatment Pain Screening Pain at present: 4 Scale Used: Numeric Score Intervention List: Patient able to continue with treatment Vital Signs Patient Currently in Pain: Yes Orientation Objective Pt. completed discharge adl at below status. ADL Feeding: Modified independent Grooming: Independent UE Bathing: Modified independent LE Bathing: Modified independent UE Dressing: Modified independent LE Dressing: Modified independent Toileting: Modified independent Toilet Transfers Toilet - Technique: Ambulating Equipment Used: Grab bars Toilet Transfer: Modified independent Shower Transfers Shower - Transfer From: Walker Shower - Transfer Type: To and From Shower - Transfer To: Shower seat with back Shower - Technique: Ambulating Shower Transfers: Supervision Cognition Overall Cognitive Status: WF Cognition Comment: 6 7 7 6 6 Plan Plan Times per week: 5-7x/week Times per day: Daily Plan weeks: 1 Current Treatment Recommendations: Strengthening, Balance Training, Functional Mobility Training, Endurance Training, Patient/Caregiver Education & Training, Equipment Evaluation, Education, & procurement, Neuromuscular Re-education, Self-Care / ADL, Home Management Training, Positioning, Cognitive/Perceptual Training, Safety Education & Training Plan Comment: Continue with OT POC Goals Patient Goals Patient goals : To walk on my own, go home and do regular chores and things Therapy Time Individual Concurrent Group Co-treatment Time In 0830 Time Out 0920 Minutes 50 CARLA aMrtinez * Mary Vega MD - 11/19/2018 8:05 PM EDT Subjective: The patient complains of moderate acute pain relieved by rest and exacerbated by activity. I am concerned about patient s fatigue. IDconsult stopped all ABX no source isolated, minimal bandemia. Elevated CRP and ESR. ROS x10: The patient also complains of severely impaired mobility and activities of daily living. Otherwise no new problems with vision, hearing, nose, mouth, throat, dermal, cardiovascular, GI, , pulmonary, musculoskeletal, psychiatric or neurological. See Rehab H&P on Rehab chart dated . Vital signs: BP (!) 147/68 Pulse 78 Temp 98 F (36.7 C) (Oral) Resp 18 Ht 5' 1 (1.549 m) Wt 146 lb 2.6 oz (66.3 kg) SpO2 96% BMI 27.62 kg/m I/O: PO/Intake: fair PO intake, no problems observed or reported. Bowel/Bladder: continent, no problems noted. General: Patient is well developed, adequately nourished, non-obese and well kempt. HEENT: PERRLA, hearing intact to loud voice, external inspection of ear and nose benign. Inspection of lips, tongue and gums benign Musculoskeletal: No significant change in strength or tone. All joints stable. Inspection and palpation of digits and nails show no clubbing, cyanosis or inflammatory conditions. Neuro/Psychiatric: Affect: flat but pleasant. Alert and oriented to person, place and situation. No significant change in deep tendon reflexes or sensation Lungs: CTA-B. Respiration effort is normal at rest. Heart: S1 = S2, RRR. No loud murmurs. Abdomen: Soft, non-tender, no enlargement of liver or spleen. Extremities: No significant lower extremity edema or tenderness. Skin: Intact to general survey, no visualized or palpated problems. Rehabilitation: Physical therapy: FIMS: Bed Mobility: Scooting: Modified independent Transfers: Sit to Stand: Modified independent Stand to sit: Modified independent Bed to Chair: Modified independent, Ambulation 1 Surface: level tile, carpet Device: Rollator Other Apparatus: (Room Air this PM) Assistance: Modified Independent Quality of Gait: Steady gait with good raissa. Gait Deviations: Slow Raissa, Decreased step length Distance: 200ft Comments: distance limited by fatigue this pm, Stairs # Steps : 12 Stairs Height: 6 Rails: Bilateral Device: No Device Assistance: Contact guard assistance FIMS: Bed, Chair, Wheel Chair: 6 - Requires assistive device (slide rail) Walk: 6 - Modified [place] Walks at least 150 feet with an ambulatory device, orthosis or prosthesis OR requires extra amount of time OR there is concern for safety Distance Walked: 200' Wheel Chair: 0 - Activity Not Assessed/Does Not Occur Stairs: 6 - Modified [place] Safely goes up and down at least one flight of stairs but requries a side support, handrail, cane, or portable supports, or the activity takes more than a reasonableamount of times, or there are safety considerations, , Assessment: Pt needing increased rest breaksin PM. Gait would decrease pain, but pt still reported pain at higher level despite not appearing to be in the pain she was reporting at. Occupational therapy: FIMS: Eatin - Patient feeds self Groomin - Patient independent with all grooming tasks Bathin - Did not occur Dressing-Upper: 5 - Requires setup/supervision/cues and/or requires assist with presthesis/brace only Dressing-Lower: 5 - Requires setup/supervision/cues and/or staff applies TEDS/prosthesis/brace only Toiletin - Requires setup/supervision/cues Toilet Transfer: 5 - Requires setup/supervision/cues Tub Transfer: 0 - Activity does not occur Shower Transfer: 5 - Supervision, set-up, cues, , Assessment: Pt demonstrates decreased overall endurance and is limited by pain. Pt. continues to demonstrate improving overall strength. Pt. was ableto reach repetitively overhead well. Pt. continues to benefit from skilled OT to maximize independence and safety with ADL tasks. Speech therapy: FIMS: Comprehension: 6 - Complex ideas 90% or device (hearing aid or glasses- if patient is primarily a visual learner) Expression: 7 - Patient expresses complex ideas/needs Social Interaction: 6 - Patient requires medication for mood and/or effect Problem Solvin - Independent with device (e.g. notes, schedules) Memory: 6 - Patient requires device to recall (e.g. memory book) Lab/X-ray studies reviewed, analyzed and discussed with patient and staff: Recent Results (from the past 24 hour(s)) CBC Auto Differential Collection Time: 11/19/18 5:43 AM Result Value Ref Range WBC 10.2 4.8 - 10.8 K/uL RBC 3.30 (L) 4.20 - 5.40 M/uL Hemoglobin 10.1 (L) 12.0 - 16.0 g/dL Hematocrit 29.3 (L) 37.0 - 47.0 % MCV 88.9 82.0 - 100.0 fL MCH 30.7 27.0 - 31.3 pg MCHC 34.6 33.0 - 37.0 % RDW 14.1 11.5 - 14.5 % Platelets 396 130 - 400 K/uL Neutrophils % 59.5 % Lymphocytes % 27.3 % Monocytes % 9.2 % Eosinophils % 2.5 % Basophils % 1.5 % Neutrophils Absolute 6.1 1.4 - 6.5 K/uL Lymphocytes Absolute 2.8 1.0 - 4.8 K/uL Monocytes Absolute 0.9 (H) 0.2 - 0.8 K/uL Eosinophils Absolute 0.3 0.0 - 0.7 K/uL Basophils Absolute 0.2 0.0 - 0.2 K/uL Sedimentation Rate Collection Time: 11/19/18 5:43 AM Result Value Ref Range Sed Rate 55 (H) 0 - 30 mm High sensitivity CRP Collection Time: 11/19/18 5:43 AM Result Value Ref Range CRP High Sensitivity 89.2 (H) 0.0 - 5.0 mg/L Xr Chest Standard (2 Vw) Result Date: 11/05/2018 EXAMINATION: XR LUMBAR SPINE (MIN 4 VIEWS), XR CHEST (2 VW) CLINICAL HISTORY: lbp . Low back pain without specific injury. Chronic shortness of breath. COMPARISONS: None available. FINDINGS: Frontal and lateral views of chest were obtained. The heart is not enlarged. Calcified aorta is not dilated.Mediastinum is not widened or shifted. There is no active disease in the lungs. The chest wall is intact and unremarkable. 6 views of the lumbar spine were obtained. There is mild dextroscoliosis centered at L2-3. Lumbar vertebral alignment is otherwise unremarkable. There is mild to moderate vertebral body margin spurring at all levels, perhaps greatest at L3-4. There is mild/moderate narrowing of intervertebral space at L4-5. There is wide laminectomy at L4-L5 and S1. There is moderate apophyseal joint arthrosis, greatest L4-5. The heavily calcified aorta is not dilated. CONCLUSION: NO ACTIVE CARDIOPULMONARY DISEASE. DEGENERATIVE DISEASE AND POSTOPERATIVE FINDINGS, WITHOUT ACUTE SUPERIMPOSED ABNORMALITY. Xr Lumbar Spine (2-3 Views) Result Date: 11/14/2018 Patient : 1935 Age: 83 years Gender: Female Order Date: 11/14/2018 11:00 AM. Exam: XR LUMBAR SPINE (2-3 VIEWS) Number of Views: 4 Indication: Postop Comparison: 11/13/2018. Findings: Mild degenerative changes bilateral hips. No acute fracture. Posterior spinal fixation L3-L5. Vascular calcifications abdominal aorta. Surgical danna. Moderate degenerative changes L5-S1. Impression: 1. Mild bilateral osteoarthritis of the hips. 2. Posterior spinal fixation L3-L5. 3. Moderate degenerative changes L5-S1. Xr Lumbar Spine (min 4 Views) Result Date: 11/05/2018 EXAMINATION: XR LUMBAR SPINE (MIN 4 VIEWS), XR CHEST (2 VW) CLINICAL HISTORY: lbp . Low back pain without specific injury. Chronic shortness of breath. COMPARISONS: None available. FINDINGS: Frontal and lateral views of chest were obtained. The heart is not enlarged. Calcified aorta is not dilated.Mediastinum is not widened or shifted. There is no active disease in the lungs. The chest wall is intact and unremarkable. 6 views of the lumbar spine were obtained. There is mild dextroscoliosis centered at L2-3. Lumbar vertebral alignment is otherwise unremarkable. There is mild to moderate vertebral body margin spurring at all levels, perhaps greatest at L3-4. There is mild/moderate narrowing of intervertebral space at L4-5. There is wide laminectomy at L4-L5 and S1. There is moderate apophyseal joint arthrosis, greatest L4-5. The heavily calcified aorta is not dilated. CONCLUSION: NO ACTIVE CARDIOPULMONARY DISEASE. DEGENERATIVE DISEASE AND POSTOPERATIVE FINDINGS, WITHOUT ACUTE SUPERIMPOSED ABNORMALITY. Mri Lumbar Spine W Wo Contrast Result Date: 11/05/2018 EXAMINATION: MRI LUMBAR SPINE W WO CONTRAST CLINICAL HISTORY: leg weakness hx surgery COMPARISONS: November 05, 2018 x-ray FINDINGS: Multisequence, multiplanar MRI of the lumbar spine was obtained, including imaging before and after intravenous administration of 15 mL ProHance. Examination is abnormal. There is large herniated disc fragment that appears to arisen from the L4-5 disc, left of midline and migrating in a cephalad direction into the left L4 lateral recess. In addition, there is evidence of a component of this disc herniation extending into the left L4 neural foramen, producing moderately severe left L4 foraminal stenosis. L4-5 disc is moderately narrowed. There is generalized disc bulging at L4-5. Right L4 foraminal stenosis is moderate. There is advanced apophyseal joint arthrosis at L4-5. Postoperative changes, with wide laminectomy at L4, L5-S1 is incidentally noted. Theoperative site is widely patent, without central spinal canal stenosis. There is moderate narrowingof the L3-4 intervertebral disc, with generalized disc bulging. In addition, there is superimposed L3-4 disc protrusion toward the left, entering the left L3 neural foramen, producing moderately severe left L3 foraminal stenosis. In addition, a combination of facet hypertrophy, thickening of ligamenta flava and disc bulging is producing moderately severe central spinal canal stenosis at L3- 4. TheL2-3 disc is moderately narrowed and shows generalized disc bulging without disc herniation. Spinalcanal caliber at L2-3 is well-maintained. The L1- 2 intervertebral level is unremarkable. Spinal canal at L1-L2 is normal. The L5- S1 disc shows mild generalized bulging. The operative site at L5-S1 iswidely patent. Contrast-enhanced images show abnormal enhancement of the coverings of the spinal canal at the operative site, without abnormal enhancement within the thecal sac. The granulation tissue at the laminectomy site shows pronounced increased enhancement. The herniated disc fragment withinthe left L4 lateral recess shows enhancement of the soft tissues around it, without enhancement of t he disc fragment itself. This does not have the appearance of a neurinoma or nerve sheath tumor. CONCLUSION: LARGE HERNIATED DISC FRAGMENT WITHIN THE LEFT L4 LATERAL RECESS HAVING ARISEN FROM THE L4-5 INTERVERTEBRAL DISC, RESULTING IN PRONOUNCED LEFT L4 LATERAL RECESS STENOSIS. IN ADDITION, THERE IS MODERATELY SEVERE LEFT L4 FORAMINAL STENOSIS. THERE IS MODERATELY SEVERE LEFT L3 FORAMINAL STENOSIS, WITH MODERATELY SEVERE L3-4 CENTRAL SPINAL CANAL STENOSIS. THE OPERATIVE SITE AT L4, L5 AND S1 ISWIDELY PATENT. THERE ARE NO SIGNS OF UNDERLYING PATHOLOGY OR RECENT INJURY. Xr Chest Portable Result Date: 11/16/2018 EXAMINATION: XR CHEST PORTABLE CLINICAL HISTORY: fever . History of back surgery. COMPARISONS: Noneavailable. FINDINGS: Single AP portable view the chest obtained on November 15, 2018 at 2124 hours. The heart is not enlarged. Mediastinum is not widened. Calcified aorta is not dilated. Lungs are clear. The chest wall is unremarkable. CONCLUSION: NO ACUTE PROCESS Fluoro For Surgical Procedures Result Date: 11/13/2018 Patient : 1935 Age: 83 years Gender: Female Order Date: 11/13/2018 10:15 AM. Exam: FLUORO FOR SURGICAL PROCEDURES Number of Views: 12 Indication: Pain Comparison: MRI lumbar spine 11/05/2018. Findings: Surgical instruments posterior to the L3 L5 motion segment level. One instrument posterior to the L4-L5 intervertebral disc. Fluoroscopic time of 47.0 seconds. Impression: Surgical instrumentation location as above, fluoroscopic guidance, fluoroscopic time 47.0 seconds. Us Carotid Artery Bilateral Result Date: 11/16/2018 Patient : 1935 Age: 83 years Gender: Female Order Date: 11/15/2018 6:15 PM EXAM: US CAROTID ARTERY BILATERAL NUMBER OF IMAGES: 68 INDICATION: bruits. sycnope. COMPARISON: None FINDINGS: Right side: Proximal common carotid artery peak systolic velocity is 106.0 centimeters per second Mid, common carotid artery peak systolic velocity is 111.0 centimeters per second. Distal common carotid artery peak systolic velocity is 91.0 centimeters per second External carotid artery peaksystolic velocity is 603.0 centimeters per second. Proximal internal carotid artery peak systolic velocity is 147.0 centimeters per second Mid internal carotid artery peak systolic velocity is 125.0 centimeters per second. Distal internal carotid artery peak systolic velocity is 73.7 centimeters per second Vertebral artery peak systolic velocity is 97.2 centimeters per second. Vertebral artery flow is antegrade ICA/CCA ratio is 1.32 Left side: Proximal common carotid artery peak systolic velocity is 123.0 centimeters per second Mid, common carotid artery peak systolic velocity is 120.0 centimeters per second. Distal common carotid artery peak systolic velocity is 118.0 centimeters per second. External carotid artery peak systolic velocity is 507.0 centimeters per second. Proximal internalcarotid artery peak systolic velocity is 204.0 centimeters per second Mid internal carotid artery pe ak systolic velocity is 147.0 centimeters per second. Distal internal carotid artery peak systolic velocity is 124.0 centimeters per second Vertebral artery peak systolic velocity is 46.3 centimetersper second. Vertebral artery flow is antegrade ICA/CCA ratio is 1.69. Scattered areas of calcified and noncalcified plaque bilateral carotid arterial systems Peak systolic velocities, ICA/CCA ratios and antegrade vertebral artery flow as above. See above for details of the examination and below for internal carotid artery interpretation guidelines. 1. Elevated peak systolic velocity involving the proximal and mid right internal carotid artery falling within the estimated luminal stenosis range of 50-69%. 2. Elevated peak systolic velocity of the proximal and mid left internal carotid artery falling within the estimated luminal stenosis range of 50-69%. GOSINK CRITERIA Diameter PSV t EDV t PSV EDV Stenosis Site % cm/sec cm/sec ICA/CCA ICA/CCA 0-49 <124 <40 <2:1 --- --- 50- 69 125-225 40-100 >2:1 --- --- 70-89 225-325 >100 >4:1 >5:1 --- 90%+ >325 >100 >4:1 >9:1 Damped resistive CCA >95% May be May be Damped ---Damped resistive CCA decreased decreased resistive CCA Us Dup Lower Extremities Bilateral Venous Result Date: 11/17/2018 US DUP LOWER EXTREMITIES BILATERAL VENOUS : 11/16/2018 CLINICAL HISTORY: LEG SWELLING, PAIN, DVT SUSPECTED . COMPARISON: None available. Grayscale, compression, color and waveform Doppler analysis of both lower extremity deep venous systems was performed with augmentation. FINDINGS: There is no deepvenous thrombosis, abnormal masses, fluid collections or other findings of concern identified within either lower extremity. NO DVT IDENTIFIED IN EITHER LOWER EXTREMITY. Xr Spine Entire (2-3 Vws) Result Date: 11/13/2018 Patient : 1935 Age: 83 years Gender: Female Order Date: 11/13/2018 8:00 AM. Exam: XR SPINE ENTIRE (2-3 VIEWS) Number of Views: 6 Indication: Scoliosis survey, preoperative, mid and lower back pain Comparison: Lumbar spine radiographs 11/05/2018 Findings: Thoracic aortic vascular calcifications. There is approximately 13 degrees convex right spinal curvature centered about the L3 vertebral body. Visualized lungs are unremarkable. Surgical clips right upper abdomen. Nonobstructive bowel gas pattern. Normal sagittal alignment incompletely characterized. Mild to moderate degenerative disc disease L3-L5. Impression: 1. Approximately 13 degrees convex right spinal curvature centered about L3 vertebral body. 2. Mild to moderate degenerative disc disease L3-L5. 3. Vascular calcifications thoracic aorta Previous extensive, complex labs, notes and diagnostics reviewed and analyzed. ALLERGIES: Allergies as of 11/15/2018 - Review Complete 11/15/2018 Allergen Reaction Noted Prednisone Hives 09/01/2017 (please also verify by checking MAR) Complex Physical Medicine & Rehab Issues Assess & Plan: 1. Severe abnormality of gait and mobility and impaired self-care and ADL's secondary to progressive NTSCI Spinal stenosis s/p L234 fusion . Functional and medical status reassessed regarding patients ability to participate in therapies and patient found to be able to participate in acute intensive comprehensive inpatient rehabilitation program including PT/OT to improve balance, ambulation, ADLs, and to improve the P/AROM. Therapeutic modifications regarding activities in therapies, place, amount of time per day and intensity of therapy made daily. In bed therapies or bedside therapies prn. 2. Bowel and Bladder dysfunction: frequent toileting, ambulate to bathroom with assistance, check post void residuals. Check for C.difficile x1 if >2 loose stools in 24 hours, continue bowel &bladder program. Monitor bowel and bladder function. Lactinex 2 PO every AC. MOM prn, Brown Bomb prn, Glycerin suppository prn, enema prn. 3. Moderate generalized OA pain: reassess pain every shift and prior to and after each therapy session, give prn Tylenol and see Mar, modalities prn in therapy, Lidoderm, K-pad prn. 4. Skin healing and breakdown risk: continue pressure relief program. Daily skin exams and reports from nursing. 5. Fatigue due to nutritional and hydration deficiency: continue to monitor I&O s, calorie counts prn, dietary consult prn. 6. Acute episodic insomnia with situational adjustment disorder: prn Ambien, monitor for day time sedation. 7. Falls risk elevated: patient to use call light to get nursing assistance to get up, bed and chair alarm. 8. Elevated DVT risk: progressive activities in PT, continue prophylaxis SOFIYA alicia, christopher and See MAR . 9. Complex discharge planning: Weekly team meeting every Monday to assess progress towards goals, discuss and address social, psychological and medical comorbidities and to address difficulties they may be having progressing in therapy. Patient and family education is in progress. The patient is tofollow-up with their family physician after discharge. Complex Active General Medical Issues that complicate care Assess & Plan: Patient Active Problem List Diagnosis Intractable back pain Lumbar spondylosis Impaired mobility Spinal stenosis of lumbosacral region Vasovagal syncope 1. fever and leukocytosis thought to be reactive will dc abx, follow up labs. My clinical concerns are the drainage from the wound, just received stitches from Dr. Ellis Holguin D.O., PM&R Attending [id number] [place] [address] Tasha * Khanh White LPN - 11/19/2018 6:00 PM EDT Thiago'd tele monitor. D/c'd IV hep lock from right AC. Medication completed and pt being discharged tomorrow. Catheter intact. Applied DSD. * Rajesh Scott MD - 11/19/2018 4:13 PM EDT Infectious Disease Patient Name: Hiram Madrid Date: 11/19/2018 Date of : 1935 Fever leukocytosis Leukocytosis 11/15/2008 100.9 degrees Patient had surgery on 11/13/2018 Decompression of the lumbar spine multiple levels with hardware placement fusion bone grafting for stenosis spondylolysis prior decompression of the lumbar spine Review of Systems Constitutional: Negative for diaphoresis, fatigue and fever. Respiratory: Negative. Cardiovascular: Negative. Gastrointestinal: Negative. BP (!) 165/72 Pulse 83 Temp 97 F (36.1 C) Resp 18 Ht 5' 1 (1.549 m) Wt 146 lb 2.6 oz (66.3 kg) SpO2 94% BMI 27.62 kg/m Physical Exam Cardiovascular: No murmur heard. Pulmonary/Chest: Breath sounds normal. No respiratory distress. She has no wheezes. She has no rales. She exhibits no tenderness. Abdominal: Bowel sounds are normal. She exhibits no distension and no mass. There is no tenderness.There is no rebound and no guarding. Musculoskeletal: Back: ASSESSMENT: Patient Active Problem List Diagnosis Intractable back pain Lumbar spondylosis Impaired mobility Spinal stenosis of lumbosacral region Vasovagal syncope PLAN: Fever leukocytosis observe * Michelle Sharp OTR/Lloyd - 11/19/2018 2:05 PM EDT Occupational Therapy Facility/Department: [facility] Daily Treatment Note NAME: Hiram Madrid : 1935 Date of Service: 11/19/2018 Discharge Recommendations: Continue to assess pending progress Assessment Assessment: Pt demonstrates decreased overall endurance and is limited by pain. Pt. continues to demonstrate improving overall strength. Pt. was able to reach repetitively overhead well. Pt. continues to benefit from skilled OT to maximize independence and safety with ADL tasks. Activity Tolerance Activity Tolerance: Patient Tolerated treatment well Activity Tolerance: Seated tasks only Safety Devices Safety Devices in place: Yes Type of devices: All fall risk precautions in place Patient Diagnosis(es): There were no encounter diagnoses. has a past medical history of Arthritis, CAD (coronary artery disease), Hyperlipidemia, Hypertension, diabetes mellitus, congenital hypothyroidism, congenital glaucoma, hepatic fibrosis, andpolycystic kidney syndrome (HCC), Other disorders of kidney and ureter in diseases classified elsewhere, and Thyroid disease. has a past surgical history that includes back surgery; Cholecystectomy; Appendectomy; tessa and bso (cervix removed) (Right); and lumbar fusion (N/A, 11/13/2018). Restrictions Restrictions/Precautions Restrictions/Precautions: Fall Risk Position Activity Restriction Spinal Precautions: No Bending, No Lifting, No Twisting Other position/activity restrictions: no brace - per nursing communication Subjective General Chart Reviewed: Yes Patient assessed for rehabilitation services?: Yes Family / Caregiver Present: Yes(Spouse and daughter) Referring Practitioner: Dr. Coker Diagnosis: Impaired mobility and gait secondary to NTSCI secondary to lumbar stenosis, radiculopathy, and spondylosis Pain Assessment Pain Assessment: 0-10 Pain Level: 9 Pain Type: Surgical pain Pain Location: Leg;Back;Hip Pain Orientation: Right(Today pain is on R hip) Pain Descriptors: Aching Non-Pharmaceutical Pain Intervention(s): Cold applied Pre Treatment Pain Screening Pain at present: 9 Scale Used: Numeric Score Intervention List: Patient able to continue with treatment Comments / Details: Pt. received medication at start of OT tx Vital Signs Patient Currently in Pain: Yes Orientation Objective Instrumental ADL's Instrumental ADLs: Yes Light Housekeeping Light Housekeeping: Pt. engages in seated tasks due to LE pain and discomfort. Pt. was able to complete BUE reaching/endurance task with house hold items, folding towels, wash cloths and clothing with no difficulty. Pt. tolerates weight shifting well. Pt. utilizes BUE with 1lb wrist weights to sort washers onto dowels. Pt. was able to use BUE, alternating with no difficulty and only 1 cue. Pt. then was able to remove washers one at a time. Pt. utilizes UEs well with min difficulty. Plan Plan Times per week: 5-7x/week Times per day: Daily Plan weeks: 1 Current Treatment Recommendations: Strengthening, Balance Training, Functional Mobility Training, Endurance Training, Patient/Caregiver Education & Training, Equipment Evaluation, Education, & procurement, Neuromuscular Re-education, Self-Care / ADL, Home Management Training, Positioning, Cognitive/Perceptual Training, Safety Education & Training Plan Comment: Continue with OT POC G-Code OutComes Score AM-PAC Score Goals Patient Goals Patient goals : To walk on my own, go home and do regular chores and things Therapy Time Individual Concurrent Group Co-treatment Time In 1330 Time Out 1400 Minutes 30 Michelle Sharp OTLinda/Lloyd * Mikayla Lindsey ASSISTANT SALES DIRECTOR - 11/19/2018 1:09 PM EDT Physical Therapy Rehab Treatment Note Facility/Department: [facility] Room: R238/R238-01 NAME: Hiram Madrid : 1935 (83 y.o.) CODE STATUS: Full Code Date of Service: 11/19/2018 Chart Reviewed: Yes Family / Caregiver Present: No Restrictions: Restrictions/Precautions: Fall Risk Position Activity Restriction Spinal Precautions: No Bending, No Lifting, No Twisting Other position/activity restrictions: no brace - per nursing communication SUBJECTIVE: Subjective: It's starting to feel a little better. Response To Previous Treatment: Patient with no complaints from previous session. Pain Screening Patient Currently in Pain: Yes Pre Treatment Pain Screening Pain at present: 8 Scale Used: Numeric Score Intervention List: Patient able to continue with treatment;Patient declined any intervention Comments / Details: right knee Post Treatment Pain Screening: Pain Assessment Pain Level: 9 Pain Type: Surgical pain Pain Location: Back;Leg;Hip Pain Orientation: Right Pain Descriptors: Aching;Sharp Pain Frequency: Continuous Pain Onset: On-going Clinical Progression: Gradually improving Non-Pharmaceutical Pain Intervention(s): Other (Comment)(nursing notified.) OBJECTIVE: Transfers Sit to Stand: Modified independent Stand to sit: Modified independent Ambulation Ambulation?: Yes Ambulation 1 Surface: level tile;carpet;ramp Device: Rollator Assistance: Modified Independent Quality of Gait: Steady gait with good raissa. Distance: 200ft Stairs/Curb Stairs?: Yes Stairs # Steps : 12 Stairs Height: 6 Other exercises Other exercises 1: Standing exercises x 20 except hip ext. ASSESSMENT/COMMENTS: Assessment: Pt needing increased rest breaks in PM. Gait would decrease pain, but pt still reportedpain at higher level despite not appearing to be in the pain she was reporting at. PLAN OF CARE/Safety: Safety Devices Type of devices: All fall risk precautions in place Therapy Time: Individual Time In 1300 Time Out 1330 Minutes 30 Minutes:30 Transfer/Bed mobility trainin Gait trainin Neuro re education: 0 Therapeutic ex: 20 Mikayla Lindsey PTA, 11/19/18 at 2:52 PM * Dulce Stevens, - 11/19/2018 11:20 AM EDT Progress Note Patient: Hiram Madrid Unit/Bed: R238/R238-01 Date of : 1935 Acct: [id number] Admitting Diagnosis: Impaired mobility [Z74.09] Spinal stenosis of lumbosacral region [M48.07] Date: 11/15/2018 Hospital Day: 4 Chief Complaint: Syncope Subjective 11/19/18: Sitting up in wheelchair with family at bedside. Denies chest pain, SOB, palpitations or dizziness. BP mildly elevated this AM. Echo 11/16/18 with normal LVF and no significant valvular abnormalities. Bilateral carotid US 11/15/18 with 50-69% bilateral ICA stenosis. No further syncopal events. On Lopressor 25mg PO BID for rate control. Currently SR with HR in 80s. States she has been placed on event monitors multiple times in past which have been unremarkable per patient. Feeling well today and tentative discharge home tomorrow. Follows with metallurgy teacher in [place]. 11/18/18: called by staff nuclear medicine technologist regarding tachycardia. Pt was unaware of tachycardia. At 1336 yesterday lasting for 18 seconds there is what appears to berapid narrow complex tachycardia. She was being wheeled back from therapy at the time. It appears to be artifact. 11/16/18: doing better today. No CP or SOB. No LH/dizz. CUS with 50-69% b/l stenosis. Echo is pending. Denies any F/C. HD stable. TELE: NSR now, 96bpm. Patient is a 83 y.o. female who presents with a chief complaint of syncope. Patient is followed on a regular basis by Dr. Calista Aceves MD. S/p back surgery. Experienced a syncopal episode one day post op. States she got up form bed and walked over and sat in a chair. States she felt LH/foggy type of feeling and experience a brief syncopal episode. No seizure like activity No CP or SOB. Noted to have + orthostatics. Denies hx of [place], CHF or arrhythmia. Follows with a metallurgy teacher from [place] for carotid artery disease and cardiac murmur. + hx of HTN and HLP. No hx of LHC. Noted to have sinus tach on tele, no pauses. + fever and elevated WBC now. Review of Systems: Review of Systems Constitutional: Negative for activity change and fatigue. Respiratory: Negative for chest tightness and shortness of breath. Cardiovascular: Negative for chest pain, palpitations and leg swelling. Gastrointestinal: Negative for nausea and vomiting. Musculoskeletal: Negative for arthralgias. Skin: Negative for color change and pallor. Neurological: Negative for dizziness, syncope and light-headedness. Psychiatric/Behavioral: Negative for agitation and behavioral problems. Physical Examination: BP (!) 165/72 Pulse 83 Temp 97 F (36.1 C) Resp 18 Ht 5' 1 (1.549 m) Wt 146 lb 2.6 oz (66.3 kg) SpO2 94% BMI 27.62 kg/m Physical Exam Constitutional: She is oriented to person, place, and time. She appears well- developed and well-nourished. No distress. Neck: Normal range of motion. Neck supple. No JVD present. Cardiovascular: Normal rate and regular rhythm. Pulmonary/Chest: Effort normal and breath sounds normal. Abdominal: Soft. Bowel sounds are normal. She exhibits no distension. Musculoskeletal: Normal range of motion. She exhibits no edema. Neurological: She is alert and oriented to person, place, and time. No cranial nerve deficit. Skin: Skin is warm and dry. She is not diaphoretic. Psychiatric: She has a normal mood and affect. Her behavior is normal. LABS: CBC: Lab Results Component Value Date WBC 10.2 11/19/2018 RBC 3.30 11/19/2018 HGB 10.1 11/19/2018 HCT 29.3 11/19/2018 MCV 88.9 11/19/2018 MCH 30.7 11/19/2018 MCHC 34.6 11/19/2018 RDW 14.1 11/19/2018 PLT 396 11/19/2018 CBC with Differential: Lab Results Component Value Date WBC 10.2 11/19/2018 RBC 3.30 11/19/2018 HGB 10.1 11/19/2018 HCT 29.3 11/19/2018 PLT 396 11/19/2018 MCV 88.9 11/19/2018 MCH 30.7 11/19/2018 MCHC 34.6 11/19/2018 RDW 14.1 11/19/2018 BANDSPCT 4 11/15/2018 LYMPHOPCT 27.3 11/19/2018 MONOPCT 9.2 11/19/2018 BASOPCT 1.5 11/19/2018 MONOSABS 0.9 11/19/2018 LYMPHSABS 2.8 11/19/2018 EOSABS 0.3 11/19/2018 BASOSABS 0.2 11/19/2018 CMP: Lab Results Component Value Date NA 135 11/18/2018 K 3.3 11/18/2018 K 3.8 11/15/2018 CL 95 11/18/2018 CO2 26 11/18/2018 BUN 11 11/18/2018 CREATININE 0.58 11/18/2018 GFRAA >60.0 11/18/2018 LABGLOM >60.0 11/18/2018 GLUCOSE 156 11/18/2018 PROT 6.5 11/15/2018 LABALBU 3.3 11/15/2018 CALCIUM 8.8 11/18/2018 BILITOT 0.4 11/15/2018 ALKPHOS 71 11/15/2018 AST 28 11/15/2018 ALT 12 11/15/2018 BMP: Lab Results Component Value Date NA 135 11/18/2018 K 3.3 11/18/2018 K 3.8 11/15/2018 CL 95 11/18/2018 CO2 26 11/18/2018 BUN 11 11/18/2018 LABALBU 3.3 11/15/2018 CREATININE 0.58 11/18/2018 CALCIUM 8.8 11/18/2018 GFRAA >60.0 11/18/2018 LABGLOM >60.0 11/18/2018 GLUCOSE 156 11/18/2018 Magnesium: Lab Results Component Value Date MG 1.8 11/18/2018 Troponin: No results found for: TROPONINI Radiology: Bilateral carotid US 11/15/18: Impression Peak systolic velocities, ICA/CCA ratios and antegrade vertebral artery flow as above. See above for details of the examination and below for internal carotid artery interpretation guidelines. 1. Elevated peak systolic velocity involving the proximal and mid right internal carotid artery falling within the estimated luminal stenosis range of 50-69%. 2. Elevated peak systolic velocity of the proximal and mid left internal carotid artery falling within the estimated luminal stenosis range of 50-69%. Telemetry 11/19/18: SR 80s EKG 11/18/18: SR 79, RBBB, T wave inversion V1-V2, QTc 463ms Echocardiogram 11/16/18: Conclusions Summary Normal tricuspid valve structure and function. Mild TR RVSP 41 mmHg Normal left ventricle structure and function. Left ventricular ejection fraction is visually estimated at 55%. E/A flow reversal noted. Suggestive of diastolic dysfunction. Signature Findings Left Ventricle Normal left ventricle structure and function. Left ventricular ejection fraction is visually estimated at 55%. E/A flow reversal noted. Suggestive of diastolic dysfunction. Right Ventricle Normal right ventricle structure and function. Normal right ventricle systolic pressure. Left Atrium Moderately dilated left atrium. Right Atrium Normal right atrium. Mitral Valve Mitral annular calcification is present. Trace MR Tricuspid Valve Normal tricuspid valve structure and function. Mild TR RVSP 41 mmHg Aortic Valve Aortic valve leaflets are moderately thickened. Pulmonic Valve Normal pulmonic valve structure and function. Pericardial Effusion No evidence of pericardial effusion. Pleural Effusion No evidence of pleural effusion. Aorta \ Miscellaneous The aorta is within normal limits. Assessment: Active Hospital Problems Diagnosis Date Noted Impaired mobility [Z74.09] 11/15/2018 Spinal stenosis of lumbosacral region [M48.07] 11/15/2018 1. Syncope- Likely vasovagal/orthostatic. 2. Sinus tach--resolved 3. HTN--uncontrolled 4. HLD 5. Hx of carotid artery disease 6. Cardiac murmur 7. Fever/elevated WBC- resolved 8. Anemia-stable Plan: 1. Maximize medical therapy--aspirin 81mg PO daily, Lopressor 25mg PO BID, losartan 100mg PO daily,potassium chloride 20meq PO BID, pravastatin 80mg PO daily HS 2. Cardiac diet recommended 3. Monitor on telemetry for any tachycardia or bradyarrhythmias 4. Maintain potassium >4, magnesium >2. GI/DVT prophylaxis 5. Rehab recs 6. Echo 11/16/18: Normal LVF EF 55%, no significant valvular abnormalities, RVSP 41mmHg 7. Stable from cardiac standpoint. Ok to DC home and F/U with regular metallurgy teacher as outpatient Attending Supervising Physician's Attestation Statement The patient is a 83 y.o. female. I have performed a history and physical examination of the patient. I discussed the case with the physician assistant engineer. I reviewed the patient's Past Medical History, Past Surgical History, Medications, and Allergies. Physical Exam: Vitals: 11/18/18 0810 11/18/18 1129 11/18/18 1953 11/19/18 0733 BP: (!) 145/71 (!) 147/70 (!) 165/72 Pulse: 97 74 83 83 Resp: 18 18 18 Temp: 98 F (36.7 C) 98 F (36.7 C) 97 F (36.1 C) TempSrc: Oral SpO2: 95% 99% 94% Weight: Height: Review of Systems - Respiratory ROS: no cough, shortness of breath, or wheezing Cardiovascular ROS: no chest pain or dyspnea on exertion Gastrointestinal ROS: no abdominal pain, change in bowel habits, or black or bloody stools Pulmonary/Chest: clear to auscultation bilaterally- no wheezes, rales or rhonchi, normal air movement, no respiratory distress Cardiovascular: normal rate, normal S1 and S2, no gallops, intact distal pulses and no carotid bruits Abdomen: soft, non-tender, non-distended, normal bowel sounds, no masses or organomegaly Active Hospital Problems Diagnosis Date Noted Impaired mobility [Z74.09] 11/15/2018 Priority: Low Spinal stenosis of lumbosacral region [M48.07] 11/15/2018 Priority: Low I reviewed and agree with the findings and plan documented in her note . Impression Syncope- Likely vasovagal/orthostatic. Hx of HTN HLD Hx of carotid artery disease- 50-69% b/l. Cardiac murmur Fever/elevated WBC- ? Infection vs reactive Anemia Sinus tach- resolved. Plan 1. Cont with current cardiac meds 2. Stable from cardio standpoint. * Padmini De La Rosa PTA - 11/19/2018 10:30 AM EDT Physical Therapy Rehab Treatment Note Facility/Department: [facility] Room: [place] [address] NAME: Hiram Madrid : 1935 (83 y.o.) CODE STATUS: Full Code Date of Service: 11/19/2018 Chart Reviewed: Yes Family / Caregiver Present: No Restrictions: Restrictions/Precautions: Fall Risk Position Activity Restriction Spinal Precautions: No Bending, No Lifting, No Twisting Other position/activity restrictions: no brace - per nursing communication SUBJECTIVE: Subjective: my back hurts a little Pain Screening Patient Currently in Pain: Yes Pre Treatment Pain Screening Pain at present: 6 Scale Used: Numeric Score Intervention List: Patient able to continue with treatment Post Treatment Pain Screening: Pain Assessment Pain Assessment: 0-10 Pain Level: 6 OBJECTIVE: Transfers Sit to Stand: Modified independent Stand to sit: Modified independent Ambulation Ambulation?: Yes More Ambulation?: No Ambulation 1 Surface: level tile;carpet Device: Rollator Assistance: Modified Independent Quality of Gait: Steady gait with good raissa. Distance: 200ft Outcomes Measures: Pizano Balance Score: 42 Exercises Hip Flexion: x20 Knee Long Arc Quad: x 20 Ankle Pumps: x 20 Other exercises Other exercises?: Yes Other exercises 1: standing toe raises 2x10 Other exercises 2: standing marching 2x10 Other exercises 3: standing hip abd 2x10 Other exercises 4: standing leg curls 2x10 Other exercises 5: seated side steps x10 ASSESSMENT/COMMENTS: Pt achieved a 42 on PIZANO this session. PLAN OF CARE/Safety: Safety Devices Type of devices: All fall risk precautions in place Therapy Time: Individual Time In 1030 Time Out 1100 Minutes 30 Minutes:30 Transfer/Bed mobility trainin Gait trainin Neuro re education:10 Therapeutic ex:Theresa De La Rosa PTA, 11/19/18 at 10:57 AM * Mikayla Lindsey PTA - 11/19/2018 10:06 AM EDT Physical Therapy Rehab Treatment Note Facility/Department: [facility] [place] [facility] Room: [place] [address] NAME: Hiram Madrid : 1935 (83 y.o.) CODE STATUS: Full Code Date of Service: 11/19/2018 Chart Reviewed: Yes Family / Caregiver Present: No Restrictions: Restrictions/Precautions: Fall Risk Position Activity Restriction Spinal Precautions: No Bending, No Lifting, No Twisting Other position/activity restrictions: no brace - per nursing communication SUBJECTIVE: Subjective: It's starting to feel a little better. Response To Previous Treatment: Patient with no complaints from previous session. Pain Screening Patient Currently in Pain: Yes Pre Treatment Pain Screening Pain at present: 8 Scale Used: Numeric Score Intervention List: Patient able to continue with treatment;Patient declined any intervention Post Treatment Pain Screening: Pain Assessment Pain Level: 6(in therapy) Pain Type: Surgical pain Pain Location: Back;Leg Pain Orientation: Lower;Left Pain Descriptors: Aching Pain Frequency: Continuous Pain Onset: On-going Clinical Progression: Gradually improving OBJECTIVE: Neuromuscular Education Neuromuscular Comments: Pizano Initiated: other ASSISTANT SALES DIRECTOR finished it: pt scored a 42/56. Bed mobility Rolling to Left: Modified independent Rolling to Right: Modified independent Supine to Sit: Modified independent Sit to Supine: Modified independent Scooting: Modified independent Comment: Hospital bed without rails with correct technique Transfers Sit to Stand: Modified independent Stand to sit: Modified independent Bed to Chair: Modified independent Ambulation Ambulation?: Yes Ambulation 1 Surface: level tile;carpet;ramp Device: Rollator Assistance: Modified Independent Quality of Gait: Steady gait with good raissa. Distance: 200ft Stairs/Curb Stairs?: Yes Stairs # Steps : 12 Stairs Height: 6 ASSESSMENT/COMMENTS: Assessment: Pt meeting all goals. Pt with steady gait with rollator with good safety. Pt sometimes standing up or sitting down with hands still on walker, but able to do so safely. PLAN OF CARE/Safety: Safety Devices Type of devices: All fall risk precautions in place Therapy Time: Individual Time In 1000 Time Out 1030 Minutes 30 Minutes:30 Transfer/Bed mobility trainin Gait trainin Neuro re education: 10 Therapeutic ex: 0 Mikayla Lindsey ASSISTANT SALES DIRECTOR, 11/19/18 at 11:59 AM * Khanh White LPN - 11/19/2018 9:15 AM EDT Assessment completed. Medicated with Percocet for 10/10 pain in lower back and left leg. Removed old drsg from lower back. Noted a scant amount of serosanguinous drainage. Danna intact. Sutures at lower part of incision intact. Cleanse incision with NS. Applied Neosporin oint to incision. Applied DSD. No back brace per Dr Corral. Call light in reach. Will continue to monitor. * Lenny Corral MD - 11/19/2018 8:23 AM EDT Patient: Hiram Madrid Unit/Bed: R238/R238-01 Date of : 1935 Acct: [id number] Admitting Diagnosis: Impaired mobility [Z74.09] Spinal stenosis of lumbosacral region [M48.07] Admit Date: 11/15/2018 Hospital Day: 4 Current Medications: Scheduled Meds: cephALEXin 500 mg Oral 3 times per day [id number]-[id number] Topical BID enoxaparin 30 mg Subcutaneous Daily docusate sodium 100 mg Oral BID famotidine 20 mg Oral BID aspirin 81 mg Oral Daily gabapentin 100 mg Oral TID levothyroxine 88 mcg Oral Daily losartan 100 mg Oral Daily potassium chloride 20 mEq Oral BID pravastatin 80 mg Oral Daily polyethylene glycol 17 g Oral Daily cinnamon oil 1 drop Oral TID metoprolol tartrate 25 mg Oral BID guaiFENesin 600 mg Oral BID Continuous Infusions: PRN Meds:.lactulose, oxyCODONE-acetaminophen, senna, albuterol . Recent Labs 11/17/18 0550 11/19/18 0543 WBC 15.5* 10.2 HGB 10.8* 10.1* HCT 32.3* 29.3* MCV 90.5 88.9 PLT 375 396 Recent Labs 11/18/18 1229 NA 135 K 3.3* CL 95 CO2 26 BUN 11 CREATININE 0.58 No results for input(s): AST, ALT, ALB, BILIDIR, BILITOT, ALKPHOS in the last 72 hours. No results for input(s): LIPASE, AMYLASE in the last 72 hours. No results for input(s): PROT, INR in the last 72 hours. Imaging Results: Xr Chest Standard (2 Vw) Result Date: 11/05/2018 EXAMINATION: XR LUMBAR SPINE (MIN 4 VIEWS), XR CHEST (2 VW) CLINICAL HISTORY: lbp . Low back pain without specific injury. Chronic shortness of breath. COMPARISONS: None available. FINDINGS: Frontal and lateral views of chest were obtained. The heart is not enlarged. Calcified aorta is not dilated.Mediastinum is not widened or shifted. There is no active disease in the lungs. The chest wall is intact and unremarkable. 6 views of the lumbar spine were obtained. There is mild dextroscoliosis centered at L2-3. Lumbar vertebral alignment is otherwise unremarkable. There is mild to moderate vertebral body margin spurring at all levels, perhaps greatest at L3-4. There is mild/moderate narrowing of intervertebral space at L4-5. There is wide laminectomy at L4-L5 and S1. There is moderate apophyseal joint arthrosis, greatest L4-5. The heavily calcified aorta is not dilated. CONCLUSION: NO ACTIVE CARDIOPULMONARY DISEASE. DEGENERATIVE DISEASE AND POSTOPERATIVE FINDINGS, WITHOUT ACUTE SUPERIMPOSED ABNORMALITY. Xr Lumbar Spine (2-3 Views) Result Date: 11/14/2018 Patient : 1935 Age: 83 years Gender: Female Order Date: 11/14/2018 11:00 AM. Exam: XR LUMBAR SPINE (2-3 VIEWS) Number of Views: 4 Indication: Postop Comparison: 11/13/2018. Findings: Mild degenerative changes bilateral hips. No acute fracture. Posterior spinal fixation L3-L5. Vascular calcifications abdominal aorta. Surgical danna. Moderate degenerative changes L5-S1. Impression: 1. Mild bilateral osteoarthritis of the hips. 2. Posterior spinal fixation L3-L5. 3. Moderate degenerative changes L5-S1. Xr Lumbar Spine (min 4 Views) Result Date: 11/05/2018 EXAMINATION: XR LUMBAR SPINE (MIN 4 VIEWS), XR CHEST (2 VW) CLINICAL HISTORY: lbp . Low back pain without specific injury. Chronic shortness of breath. COMPARISONS: None available. FINDINGS: Frontal and lateral views of chest were obtained. The heart is not enlarged. Calcified aorta is not dilated.Mediastinum is not widened or shifted. There is no active disease in the lungs. The chest wall is intact and unremarkable. 6 views of the lumbar spine were obtained. There is mild dextroscoliosis centered at L2-3. Lumbar vertebral alignment is otherwise unremarkable. There is mild to moderate vertebral body margin spurring at all levels, perhaps greatest at L3-4. There is mild/moderate narrowing of intervertebral space at L4-5. There is wide laminectomy at L4-L5 and S1. There is moderate apophyseal joint arthrosis, greatest L4-5. The heavily calcified aorta is not dilated. CONCLUSION: NO ACTIVE CARDIOPULMONARY DISEASE. DEGENERATIVE DISEASE AND POSTOPERATIVE FINDINGS, WITHOUT ACUTE SUPERIMPOSED ABNORMALITY. Mri Lumbar Spine W Wo Contrast Result Date: 11/05/2018 EXAMINATION: MRI LUMBAR SPINE W WO CONTRAST CLINICAL HISTORY: leg weakness hx surgery COMPARISONS: November 05, 2018 x-ray FINDINGS: Multisequence, multiplanar MRI of the lumbar spine was obtained, including imaging before and after intravenous administration of 15 mL ProHance. Examination is abnormal. There is large herniated disc fragment that appears to arisen from the L4-5 disc, left of midline and migrating in a cephalad direction into the left L4 lateral recess. In addition, there is evidence of a component of this disc herniation extending into the left L4 neural foramen, producing moderately severe left L4 foraminal stenosis. L4-5 disc is moderately narrowed. There is generalized disc bulging at L4-5. Right L4 foraminal stenosis is moderate. There is advanced apophyseal joint arthrosis at L4-5. Postoperative changes, with wide laminectomy at L4, L5-S1 is incidentally noted. Theoperative site is widely patent, without central spinal canal stenosis. There is moderate narrowingof the L3-4 intervertebral disc, with generalized disc bulging. In addition, there is superimposed L3-4 disc protrusion toward the left, entering the left L3 neural foramen, producing moderately severe left L3 foraminal stenosis. In addition, a combination of facet hypertrophy, thickening of ligamenta flava and disc bulging is producing moderately severe central spinal canal stenosis at L3- 4. TheL2-3 disc is moderately narrowed and shows generalized disc bulging without disc herniation. Spinalcanal caliber at L2-3 is well-maintained. The L1- 2 intervertebral level is unremarkable. Spinal canal at L1-L2 is normal. The L5- S1 disc shows mild generalized bulging. The operative site at L5-S1 iswidely patent. Contrast-enhanced images show abnormal enhancement of the coverings of the spinal canal at the operative site, without abnormal enhancement within the thecal sac. The granulation tissue at the laminectomy site shows pronounced increased enhancement. The herniated disc fragment withinthe left L4 lateral recess shows enhancement of the soft tissues around it, without enhancement of t he disc fragment itself. This does not have the appearance of a neurinoma or nerve sheath tumor. CONCLUSION: LARGE HERNIATED DISC FRAGMENT WITHIN THE LEFT L4 LATERAL RECESS HAVING ARISEN FROM THE L4-5 INTERVERTEBRAL DISC, RESULTING IN PRONOUNCED LEFT L4 LATERAL RECESS STENOSIS. IN ADDITION, THERE IS MODERATELY SEVERE LEFT L4 FORAMINAL STENOSIS. THERE IS MODERATELY SEVERE LEFT L3 FORAMINAL STENOSIS, WITH MODERATELY SEVERE L3-4 CENTRAL SPINAL CANAL STENOSIS. THE OPERATIVE SITE AT L4, L5 AND S1 ISWIDELY PATENT. THERE ARE NO SIGNS OF UNDERLYING PATHOLOGY OR RECENT INJURY. Xr Chest Portable Result Date: 11/16/2018 EXAMINATION: XR CHEST PORTABLE CLINICAL HISTORY: fever . History of back surgery. COMPARISONS: Noneavailable. FINDINGS: Single AP portable view the chest obtained on November 15, 2018 at 2124 hours. The heart is not enlarged. Mediastinum is not widened. Calcified aorta is not dilated. Lungs are clear. The chest wall is unremarkable. CONCLUSION: NO ACUTE PROCESS Fluoro For Surgical Procedures Result Date: 11/13/2018 Patient : 1935 Age: 83 years Gender: Female Order Date: 11/13/2018 10:15 AM. Exam: FLUORO FOR SURGICAL PROCEDURES Number of Views: 12 Indication: Pain Comparison: MRI lumbar spine 11/05/2018. Findings: Surgical instruments posterior to the L3 L5 motion segment level. One instrument posterior to the L4-L5 intervertebral disc. Fluoroscopic time of 47.0 seconds. Impression: Surgical instrumentation location as above, fluoroscopic guidance, fluoroscopic time 47.0 seconds. Us Carotid Artery Bilateral Result Date: 11/16/2018 Patient : 1935 Age: 83 years Gender: Female Order Date: 11/15/2018 6:15 PM EXAM: US CAROTID ARTERY BILATERAL NUMBER OF IMAGES: 68 INDICATION: bruits. sycnope. COMPARISON: None FINDINGS: Right side: Proximal common carotid artery peak systolic velocity is 106.0 centimeters per second Mid, common carotid artery peak systolic velocity is 111.0 centimeters per second. Distal common carotid artery peak systolic velocity is 91.0 centimeters per second External carotid artery peaksystolic velocity is 603.0 centimeters per second. Proximal internal carotid artery peak systolic velocity is 147.0 centimeters per second Mid internal carotid artery peak systolic velocity is 125.0 centimeters per second. Distal internal carotid artery peak systolic velocity is 73.7 centimeters per second Vertebral artery peak systolic velocity is 97.2 centimeters per second. Vertebral artery flow is antegrade ICA/CCA ratio is 1.32 Left side: Proximal common carotid artery peak systolic velocity is 123.0 centimeters per second Mid, common carotid artery peak systolic velocity is 120.0 centimeters per second. Distal common carotid artery peak systolic velocity is 118.0 centimeters per second. External carotid artery peak systolic velocity is 507.0 centimeters per second. Proximal internalcarotid artery peak systolic velocity is 204.0 centimeters per second Mid internal carotid artery pe ak systolic velocity is 147.0 centimeters per second. Distal internal carotid artery peak systolic velocity is 124.0 centimeters per second Vertebral artery peak systolic velocity is 46.3 centimetersper second. Vertebral artery flow is antegrade ICA/CCA ratio is 1.69. Scattered areas of calcified and noncalcified plaque bilateral carotid arterial systems Peak systolic velocities, ICA/CCA ratios and antegrade vertebral artery flow as above. See above for details of the examination and below for internal carotid artery interpretation guidelines. 1. Elevated peak systolic velocity involving the proximal and mid right internal carotid artery falling within the estimated luminal stenosis range of 50-69%. 2. Elevated peak systolic velocity of the proximal and mid left internal carotid artery falling within the estimated luminal stenosis range of 50-69%. GOSINK CRITERIA Diameter PSV t EDV t PSV EDV Stenosis Site % cm/sec cm/sec ICA/CCA ICA/CCA 0-49 <124 <40 <2:1 --- --- 50- 69 125-225 40-100 >2:1 --- --- 70-89 225-325 >100 >4:1 >5:1 --- 90%+ >325 >100 >4:1 >9:1 Damped resistive CCA >95% May be May be Damped ---Damped resistive CCA decreased decreased resistive CCA Us Dup Lower Extremities Bilateral Venous Result Date: 11/17/2018 US DUP LOWER EXTREMITIES BILATERAL VENOUS : 11/16/2018 CLINICAL HISTORY: LEG SWELLING, PAIN, DVT SUSPECTED . COMPARISON: None available. Grayscale, compression, color and waveform Doppler analysis of both lower extremity deep venous systems was performed with augmentation. FINDINGS: There is no deepvenous thrombosis, abnormal masses, fluid collections or other findings of concern identified within either lower extremity. NO DVT IDENTIFIED IN EITHER LOWER EXTREMITY. Xr Spine Entire (2-3 Vws) Result Date: 11/13/2018 Patient : 1935 Age: 83 years Gender: Female Order Date: 11/13/2018 8:00 AM. Exam: XR SPINE ENTIRE (2-3 VIEWS) Number of Views: 6 Indication: Scoliosis survey, preoperative, mid and lower back pain Comparison: Lumbar spine radiographs 11/05/2018 Findings: Thoracic aortic vascular calcifications. There is approximately 13 degrees convex right spinal curvature centered about the L3 vertebral body. Visualized lungs are unremarkable. Surgical clips right upper abdomen. Nonobstructive bowel gas pattern. Normal sagittal alignment incompletely characterized. Mild to moderate degenerative disc disease L3-L5. Impression: 1. Approximately 13 degrees convex right spinal curvature centered about L3 vertebral body. 2. Mild to moderate degenerative disc disease L3-L5. 3. Vascular calcifications thoracic aorta BP (!) 165/72 Pulse 83 Temp 97 F (36.1 C) Resp 18 Ht 5' 1 (1.549 m) Wt 146 lb 2.6 oz (66.3 kg) SpO2 94% BMI 27.62 kg/m Minimal complaints today again able to ambulate better. Incision is dry after suturing the the drainage area. WBC down to 15. On Keflex. Continue with the local wound care. Patient is to refrain from brace or any pressure on her back continue with Keflex * Mary Vega MD - 11/18/2018 7:37 PM EDT Subjective: The patient complains of moderate acute pain relieved by rest and exacerbated by activity. I am concerned about patient s fatigue. IDconsult stopped all ABX no source isolated, minimal bandemia. Elevated CRP and ESR. ROS x10: The patient also complains of severely impaired mobility and activities of daily living. Otherwise no new problems with vision, hearing, nose, mouth, throat, dermal, cardiovascular, GI, , pulmonary, musculoskeletal, psychiatric or neurological. See Rehab H&P on Rehab chart dated . Vital signs: BP (!) 145/71 Pulse 74 Temp 98 F (36.7 C) Resp 18 Ht 5' 1 (1.549 m) Wt 146 lb 2.6 oz (66.3 kg) SpO2 95% BMI 27.62 kg/m I/O: PO/Intake: fair PO intake, no problems observed or reported. Bowel/Bladder: continent, no problems noted. General: Patient is well developed, adequately nourished, non-obese and well kempt. HEENT: PERRLA, hearing intact to loud voice, external inspection of ear and nose benign. Inspection of lips, tongue and gums benign Musculoskeletal: No significant change in strength or tone. All joints stable. Inspection and palpation of digits and nails show no clubbing, cyanosis or inflammatory conditions. Neuro/Psychiatric: Affect: flat but pleasant. Alert and oriented to person, place and situation. No significant change in deep tendon reflexes or sensation Lungs: CTA-B. Respiration effort is normal at rest. Heart: S1 = S2, RRR. No loud murmurs. Abdomen: Soft, non-tender, no enlargement of liver or spleen. Extremities: No significant lower extremity edema or tenderness. Skin: Intact to general survey, no visualized or palpated problems. Rehabilitation: Physical therapy: FIMS: Bed Mobility: Scooting: Minimal assistance Transfers: Sit to Stand: Stand by assistance Stand to sit: Stand by assistance Bed to Chair: Stand by assistance, Ambulation 1 Surface: level tile Device: Rollator Other Apparatus: (Room Air this PM) Assistance: Stand by assistance Quality of Gait: slow raissa, narrow ANSHUL, decreased step length. Gait Deviations: Slow Raissa, Decreased step length Distance: 200ft Comments: distance limited by fatigue this pm, Stairs # Steps : 8 Stairs Height: 6 Rails: Bilateral Device: No Device Assistance: Contact guard assistance FIMS: Bed, Chair, Wheel Chair: 5 - Requires setup/supervision/cues Walk: 2 - Maximal Assistance Requires up to Maximal Assistance AND requires assistance of one person to walk between 50-149 feet (Patient performs 25-49% of locomotion effort or goes between 50-149 feet) Distance Walked: 50 Wheel Chair: 0 - Activity Not Assessed/Does Not Occur Stairs: 0 - Activity Does not Occur ( 0 only for the admission assessment), , Assessment: Pt with increased distance this PM. Pt required VCs on approach to chair , attempting to leave rollator behind. Occupational therapy: FIMS: Eatin - Patient feeds self Groomin - Patient independent with all grooming tasks Bathin - Able to bathe 8-9 areas Dressing-Upper: 5 - Requires setup/supervision/cues and/or requires assist with presthesis/brace only Dressing-Lower: 5 - Requires setup/supervision/cues and/or staff applies TEDS/prosthesis/brace only Toiletin - Requires setup/supervision/cues Toilet Transfer: 5 - Requires setup/supervision/cues Tub Transfer: 0 - Activity does not occur Shower Transfer: 5 - Supervision, set-up, cues, , Assessment: Pt. is an 83 year old woman from homewith spouse who [facility] with the above deficits which impact her ability to perform ADLs and IADLs. Pt. would benefit from skilled OT to maximize independence and safety with ADL tasks. Speech therapy: FIMS: Comprehension: 6 - Complex ideas 90% or device (hearing aid or glasses- if patient is primarily a visual learner) Expression: 7 - Patient expresses complex ideas/needs Social Interaction: 7 - Patient has appropriate behavior/relations 100% of the time Problem Solvin - Independent with device (e.g. notes, schedules) Memory: 6 - Patient requires device to recall (e.g. memory book) Lab/X-ray studies reviewed, analyzed and discussed with patient and staff: Recent Results (from the past 24 hour(s)) TSH without Reflex Collection Time: 11/18/18 12:29 PM Result Value Ref Range TSH 0.880 0.440 - 3.860 uIU/mL Magnesium Collection Time: 11/18/18 12:29 PM Result Value Ref Range Magnesium 1.8 1.7 - 2.4 mg/dL Basic Metabolic Panel Collection Time: 11/18/18 12:29 PM Result Value Ref Range Sodium 135 135 - 144 mEq/L Potassium 3.3 (L) 3.4 - 4.9 mEq/L Chloride 95 95 - 107 mEq/L CO2 26 20 - 31 mEq/L Anion Gap 14 9 - 15 mEq/L Glucose 156 (H) 70 - 99 mg/dL BUN 11 8 - 23 mg/dL CREATININE 0.58 0.50 - 0.90 mg/dL GFR Non- >60.0 >60 GFR >60.0 >60 Calcium 8.8 8.5 - 9.9 mg/dL EKG 12 Lead Collection Time: 11/18/18 3:20 PM Result Value Ref Range Ventricular Rate 79 BPM Atrial Rate 79 BPM P-R Interval 176 ms QRS Duration 130 ms Q-T Interval 404 ms QTc Calculation (Bazett) 463 ms P [place] 58 degrees R [place] -11 degrees T [place] 5 degrees Xr Chest Standard (2 Vw) Result Date: 11/05/2018 EXAMINATION: XR LUMBAR SPINE (MIN 4 VIEWS), XR CHEST (2 VW) CLINICAL HISTORY: lbp . Low back pain without specific injury. Chronic shortness of breath. COMPARISONS: None available. FINDINGS: Frontal and lateral views of chest were obtained. The heart is not enlarged. Calcified aorta is not dilated.Mediastinum is not widened or shifted. There is no active disease in the lungs. The chest wall is intact and unremarkable. 6 views of the lumbar spine were obtained. There is mild dextroscoliosis centered at L2-3. Lumbar vertebral alignment is otherwise unremarkable. There is mild to moderate vertebral body margin spurring at all levels, perhaps greatest at L3-4. There is mild/moderate narrowing of intervertebral space at L4-5. There is wide laminectomy at L4-L5 and S1. There is moderate apophyseal joint arthrosis, greatest L4-5. The heavily calcified aorta is not dilated. CONCLUSION: NO ACTIVE CARDIOPULMONARY DISEASE. DEGENERATIVE DISEASE AND POSTOPERATIVE FINDINGS, WITHOUT ACUTE SUPERIMPOSED ABNORMALITY. Xr Lumbar Spine (2-3 Views) Result Date: 11/14/2018 Patient : 1935 Age: 83 years Gender: Female Order Date: 11/14/2018 11:00 AM. Exam: XR LUMBAR SPINE (2-3 VIEWS) Number of Views: 4 Indication: Postop Comparison: 11/13/2018. Findings: Mild degenerative changes bilateral hips. No acute fracture. Posterior spinal fixation L3-L5. Vascular calcifications abdominal aorta. Surgical danna. Moderate degenerative changes L5-S1. Impression: 1. Mild bilateral osteoarthritis of the hips. 2. Posterior spinal fixation L3-L5. 3. Moderate degenerative changes L5-S1. Xr Lumbar Spine (min 4 Views) Result Date: 11/05/2018 EXAMINATION: XR LUMBAR SPINE (MIN 4 VIEWS), XR CHEST (2 VW) CLINICAL HISTORY: lbp . Low back pain without specific injury. Chronic shortness of breath. COMPARISONS: None available. FINDINGS: Frontal and lateral views of chest were obtained. The heart is not enlarged. Calcified aorta is not dilated.Mediastinum is not widened or shifted. There is no active disease in the lungs. The chest wall is intact and unremarkable. 6 views of the lumbar spine were obtained. There is mild dextroscoliosis centered at L2-3. Lumbar vertebral alignment is otherwise unremarkable. There is mild to moderate vertebral body margin spurring at all levels, perhaps greatest at L3-4. There is mild/moderate narrowing of intervertebral space at L4-5. There is wide laminectomy at L4-L5 and S1. There is moderate apophyseal joint arthrosis, greatest L4-5. The heavily calcified aorta is not dilated. CONCLUSION: NO ACTIVE CARDIOPULMONARY DISEASE. DEGENERATIVE DISEASE AND POSTOPERATIVE FINDINGS, WITHOUT ACUTE SUPERIMPOSED ABNORMALITY. Mri Lumbar Spine W Wo Contrast Result Date: 11/05/2018 EXAMINATION: MRI LUMBAR SPINE W WO CONTRAST CLINICAL HISTORY: leg weakness hx surgery COMPARISONS: November 05, 2018 x-ray FINDINGS: Multisequence, multiplanar MRI of the lumbar spine was obtained, including imaging before and after intravenous administration of 15 mL ProHance. Examination is abnormal. There is large herniated disc fragment that appears to arisen from the L4-5 disc, left of midline and migrating in a cephalad direction into the left L4 lateral recess. In addition, there is evidence of a component of this disc herniation extending into the left L4 neural foramen, producing moderately severe left L4 foraminal stenosis. L4-5 disc is moderately narrowed. There is generalized disc bulging at L4-5. Right L4 foraminal stenosis is moderate. There is advanced apophyseal joint arthrosis at L4-5. Postoperative changes, with wide laminectomy at L4, L5-S1 is incidentally noted. Theoperative site is widely patent, without central spinal canal stenosis. There is moderate narrowingof the L3-4 intervertebral disc, with generalized disc bulging. In addition, there is superimposed L3-4 disc protrusion toward the left, entering the left L3 neural foramen, producing moderately severe left L3 foraminal stenosis. In addition, a combination of facet hypertrophy, thickening of ligamenta flava and disc bulging is producing moderately severe central spinal canal stenosis at L3- 4. TheL2-3 disc is moderately narrowed and shows generalized disc bulging without disc herniation. Spinalcanal caliber at L2-3 is well-maintained. The L1- 2 intervertebral level is unremarkable. Spinal canal at L1-L2 is normal. The L5- S1 disc shows mild generalized bulging. The operative site at L5-S1 iswidely patent. Contrast-enhanced images show abnormal enhancement of the coverings of the spinal canal at the operative site, without abnormal enhancement within the thecal sac. The granulation tissue at the laminectomy site shows pronounced increased enhancement. The herniated disc fragment withinthe left L4 lateral recess shows enhancement of the soft tissues around it, without enhancement of t he disc fragment itself. This does not have the appearance of a neurinoma or nerve sheath tumor. CONCLUSION: LARGE HERNIATED DISC FRAGMENT WITHIN THE LEFT L4 LATERAL RECESS HAVING ARISEN FROM THE L4-5 INTERVERTEBRAL DISC, RESULTING IN PRONOUNCED LEFT L4 LATERAL RECESS STENOSIS. IN ADDITION, THERE IS MODERATELY SEVERE LEFT L4 FORAMINAL STENOSIS. THERE IS MODERATELY SEVERE LEFT L3 FORAMINAL STENOSIS, WITH MODERATELY SEVERE L3-4 CENTRAL SPINAL CANAL STENOSIS. THE OPERATIVE SITE AT L4, L5 AND S1 ISWIDELY PATENT. THERE ARE NO SIGNS OF UNDERLYING PATHOLOGY OR RECENT INJURY. Xr Chest Portable Result Date: 11/16/2018 EXAMINATION: XR CHEST PORTABLE CLINICAL HISTORY: fever . History of back surgery. COMPARISONS: Noneavailable. FINDINGS: Single AP portable view the chest obtained on November 15, 2018 at 2124 hours. The heart is not enlarged. Mediastinum is not widened. Calcified aorta is not dilated. Lungs are clear. The chest wall is unremarkable. CONCLUSION: NO ACUTE PROCESS Fluoro For Surgical Procedures Result Date: 11/13/2018 Patient : 1935 Age: 83 years Gender: Female Order Date: 11/13/2018 10:15 AM. Exam: FLUORO FOR SURGICAL PROCEDURES Number of Views: 12 Indication: Pain Comparison: MRI lumbar spine 11/05/2018. Findings: Surgical instruments posterior to the L3 L5 motion segment level. One instrument posterior to the L4-L5 intervertebral disc. Fluoroscopic time of 47.0 seconds. Impression: Surgical instrumentation location as above, fluoroscopic guidance, fluoroscopic time 47.0 seconds. Us Carotid Artery Bilateral Result Date: 11/16/2018 Patient : 1935 Age: 83 years Gender: Female Order Date: 11/15/2018 6:15 PM EXAM: US CAROTID ARTERY BILATERAL NUMBER OF IMAGES: 68 INDICATION: bruits. sycnope. COMPARISON: None FINDINGS: Right side: Proximal common carotid artery peak systolic velocity is 106.0 centimeters per second Mid, common carotid artery peak systolic velocity is 111.0 centimeters per second. Distal common carotid artery peak systolic velocity is 91.0 centimeters per second External carotid artery peaksystolic velocity is 603.0 centimeters per second. Proximal internal carotid artery peak systolic velocity is 147.0 centimeters per second Mid internal carotid artery peak systolic velocity is 125.0 centimeters per second. Distal internal carotid artery peak systolic velocity is 73.7 centimeters per second Vertebral artery peak systolic velocity is 97.2 centimeters per second. Vertebral artery flow is antegrade ICA/CCA ratio is 1.32 Left side: Proximal common carotid artery peak systolic velocity is 123.0 centimeters per second Mid, common carotid artery peak systolic velocity is 120.0 centimeters per second. Distal common carotid artery peak systolic velocity is 118.0 centimeters per second. External carotid artery peak systolic velocity is 507.0 centimeters per second. Proximal internalcarotid artery peak systolic velocity is 204.0 centimeters per second Mid internal carotid artery pe ak systolic velocity is 147.0 centimeters per second. Distal internal carotid artery peak systolic velocity is 124.0 centimeters per second Vertebral artery peak systolic velocity is 46.3 centimetersper second. Vertebral artery flow is antegrade ICA/CCA ratio is 1.69. Scattered areas of calcified and noncalcified plaque bilateral carotid arterial systems Peak systolic velocities, ICA/CCA ratios and antegrade vertebral artery flow as above. See above for details of the examination and below for internal carotid artery interpretation guidelines. 1. Elevated peak systolic velocity involving the proximal and mid right internal carotid artery falling within the estimated luminal stenosis range of 50-69%. 2. Elevated peak systolic velocity of the proximal and mid left internal carotid artery falling within the estimated luminal stenosis range of 50-69%. GOSINK CRITERIA Diameter PSV t EDV t PSV EDV Stenosis Site % cm/sec cm/sec ICA/CCA ICA/CCA 0-49 <124 <40 <2:1 --- --- 50- 69 125-225 40-100 >2:1 --- --- 70-89 225-325 >100 >4:1 >5:1 --- 90%+ >325 >100 >4:1 >9:1 Damped resistive CCA >95% May be May be Damped ---Damped resistive CCA decreased decreased resistive CCA Us Dup Lower Extremities Bilateral Venous Result Date: 11/17/2018 US DUP LOWER EXTREMITIES BILATERAL VENOUS : 11/16/2018 CLINICAL HISTORY: LEG SWELLING, PAIN, DVT SUSPECTED . COMPARISON: None available. Grayscale, compression, color and waveform Doppler analysis of both lower extremity deep venous systems was performed with augmentation. FINDINGS: There is no deepvenous thrombosis, abnormal masses, fluid collections or other findings of concern identified within either lower extremity. NO DVT IDENTIFIED IN EITHER LOWER EXTREMITY. Xr Spine Entire (2-3 Vws) Result Date: 11/13/2018 Patient : 1935 Age: 83 years Gender: Female Order Date: 11/13/2018 8:00 AM. Exam: XR SPINE ENTIRE (2-3 VIEWS) Number of Views: 6 Indication: Scoliosis survey, preoperative, mid and lower back pain Comparison: Lumbar spine radiographs 11/05/2018 Findings: Thoracic aortic vascular calcifications. There is approximately 13 degrees convex right spinal curvature centered about the L3 vertebral body. Visualized lungs are unremarkable. Surgical clips right upper abdomen. Nonobstructive bowel gas pattern. Normal sagittal alignment incompletely characterized. Mild to moderate degenerative disc disease L3-L5. Impression: 1. Approximately 13 degrees convex right spinal curvature centered about L3 vertebral body. 2. Mild to moderate degenerative disc disease L3-L5. 3. Vascular calcifications thoracic aorta Previous extensive, complex labs, notes and diagnostics reviewed and analyzed. ALLERGIES: Allergies as of 11/15/2018 - Review Complete 11/15/2018 Allergen Reaction Noted Prednisone Hives 09/01/2017 (please also verify by checking MAR) Complex Physical Medicine & Rehab Issues Assess & Plan: 1. Severe abnormality of gait and mobility and impaired self-care and ADL's secondary to progressive NTSCI Spinal stenosis s/p L234 fusion . Functional and medical status reassessed regarding patients ability to participate in therapies and patient found to be able to participate in acute intensive comprehensive inpatient rehabilitation program including PT/OT to improve balance, ambulation, ADLs, and to improve the P/AROM. Therapeutic modifications regarding activities in therapies, place, amount of time per day and intensity of therapy made daily. In bed therapies or bedside therapies prn. 2. Bowel and Bladder dysfunction: frequent toileting, ambulate to bathroom with assistance, check post void residuals. Check for C.difficile x1 if >2 loose stools in 24 hours, continue bowel &bladder program. Monitor bowel and bladder function. Lactinex 2 PO every AC. MOM prn, Brown Bomb prn, Glycerin suppository prn, enema prn. 3. Moderate generalized OA pain: reassess pain every shift and prior to and after each therapy session, give prn Tylenol and see Mar, modalities prn in therapy, Lidoderm, K-pad prn. 4. Skin healing and breakdown risk: continue pressure relief program. Daily skin exams and reports from nursing. 5. Fatigue due to nutritional and hydration deficiency: continue to monitor I&O s, calorie counts prn, dietary consult prn. 6. Acute episodic insomnia with situational adjustment disorder: prn Ambien, monitor for day time sedation. 7. Falls risk elevated: patient to use call light to get nursing assistance to get up, bed and chair alarm. 8. Elevated DVT risk: progressive activities in PT, continue prophylaxis SOFIYA christopher vargas and See MAR . 9. Complex discharge planning: Weekly team meeting every Monday to assess progress towards goals, discuss and address social, psychological and medical comorbidities and to address difficulties they may be having progressing in therapy. Patient and family education is in progress. The patient is tofollow-up with their family physician after discharge. Complex Active General Medical Issues that complicate care Assess & Plan: Patient Active Problem List Diagnosis Intractable back pain Lumbar spondylosis Impaired mobility Spinal stenosis of lumbosacral region 1. fever and leukocytosis thought to be reactive will dc abx, follow up labs. My clinical concerns are the drainage from the wound, just received stitches from Dr. Ellis Holguin D.O., PM&R Attending [id number] [place] [address] [place] * Rachael Graf LPN - 11/18/2018 4:39 PM EDT Pt states her pain level in her back at this time is tolerable at a 5/10. She was previously medicated. Back dressing changed. Cleaned with NS, neosporin, DSD applied. Moderate amt sanguinous drainage. Inferior part of incision remains reddened. added sutures to inferior part of back incision. There was again moderate sanguinous drainage. Redressed and applied neosporin after procedure. * Rajesh Scott MD - 11/18/2018 2:28 PM EDT Infectious Disease Patient Name: Hiram Madrid Date: 11/18/2018 Date of : 1935 Fever leukocytosis Leukocytosis 11/15/2008 100.9 degrees Patient had surgery on 11/13/2018 Decompression of the lumbar spine multiple levels with hardware placement fusion bone grafting for stenosis spondylolysis prior decompression of the lumbar spine Review of Systems Constitutional: Negative for diaphoresis, fatigue and fever. Respiratory: Negative. Cardiovascular: Negative. Gastrointestinal: Negative. Physical Exam Cardiovascular: No murmur heard. Pulmonary/Chest: Breath sounds normal. No respiratory distress. She has no wheezes. She has no rales. She exhibits no tenderness. Abdominal: Bowel sounds are normal. She exhibits no distension and no mass. There is no tenderness.There is no rebound and no guarding. Musculoskeletal: Back: Urine Culture [[id number]] Collected: 11/15/18 1905 Order Status: Completed Specimen: Urine, clean catch Updated: 11/17/18 0728 Urine Culture, Routine No growth 24 hours Narrative: ORDERED BY: ADDY COKER SOURCE: Urine Clean Catch COLLECTED: 11/15/18 19:05 ANTIBIOTICS AT DI.: RECEIVED : 11/15/18 19:05 Culture Blood #2 [[id number]] Collected: 11/15/18 1637 Order Status: Completed Specimen: Blood Updated: 11/16/18 1815 Culture, Blood 2 No Growth to date. Any change in status will be called. Narrative: ORDERED BY: ADDY COKER SOURCE: Blood COLLECTED: 11/15/18 16:37 ANTIBIOTICS AT DI.: RECEIVED : 11/15/18 16:42 Culture Blood #1 [[id number]] Collected: 11/15/18 1637 Order Status: Completed Specimen: Blood Updated: 11/16/18 1815 Blood Culture, Routine No Growth to date. Any change in status will be called. Narrative: ORDERED BY: ADDY COKER SOURCE: Blood Blood COLLECTED: 11/15/18 16:37 ANTIBIOTICS AT DI.: RECEIVED : 11/15/18 16:42 ASSESSMENT: Patient Active Problem List Diagnosis Intractable back pain Lumbar spondylosis Impaired mobility Spinal stenosis of lumbosacral region PLAN: Fever leukocytosis observe * Steve Franklin MD - 11/18/2018 11:50 AM EDT Progress Note Patient: Hiram Madrid Unit/Bed: R238/R238-01 Date of : 1935 Acct: [id number] Admitting Diagnosis: Impaired mobility [Z74.09] Spinal stenosis of lumbosacral region [M48.07] Admit Date: 11/15/2018 Hospital Day: 3 Chief Complaint: Syncope Tachycardia recent post op Back Histories: Past Medical History: Diagnosis Date Arthritis CAD (coronary artery disease) Hyperlipidemia Hypertension diabetes mellitus, congenital hypothyroidism, congenital glaucoma, hepatic fibrosis, and polycystic kidney syndrome (HCC) Other disorders of kidney and ureter in diseases classified elsewhere Thyroid disease Past Surgical History: Procedure Laterality Date APPENDECTOMY BACK SURGERY CHOLECYSTECTOMY LUMBAR FUSION N/A 11/13/2018 PLIF L 3-4-5 DECOMPRESSION L3, L4 performed by Lenny Corral MD at [facility] [place] [facility] Right History reviewed. No pertinent family history. Social History Socioeconomic History Marital status: Spouse name: None Number of children: None Years of education: None Highest education level: None Occupational History None Social Needs Financial resource strain: None Food insecurity: Worry: None Inability: None Transportation needs: Medical: None Non-medical: None Tobacco Use Smoking status: Never Smoker Smokeless tobacco: Never Used Substance and Sexual Activity Alcohol use: Not Currently Drug use: Never Sexual activity: None Lifestyle Physical activity: Days per week: None Minutes per session: None Stress: None Relationships Social connections: Talks on phone: None Gets together: None Attends judaism service: None Active member of club or organization: None Attends meetings of clubs or organizations: None Relationship status: None Intimate partner violence: Fear of current or ex partner: None Emotionally abused: None Physically abused: None Forced sexual activity: None Other Topics Concern None Social History Narrative None Subjective/HPI: called by staff nuclear medicine technologist regarding tachycardia. Pt was unaware of tachycardia. At 1336 yesterday lasting for 18 seconds there is what appears to berapid narrow complex tachycardia. She was being wheeled back from therapy at the time. It appears to be artifact. EKG: Review of Systems: Review of Systems Constitutional: Negative. Negative for diaphoresis and fatigue. HENT: Negative. Eyes: Negative. Respiratory: Negative. Negative for cough, chest tightness, shortness of breath, wheezing and stridor. Cardiovascular: Negative. Negative for chest pain, palpitations and leg swelling. Gastrointestinal: Negative. Negative for blood in stool and nausea. Genitourinary: Negative. Musculoskeletal: Positive for arthralgias, back pain and gait problem. Skin: Negative. Neurological: Negative for dizziness, syncope, weakness and light-headedness. Hematological: Negative. Psychiatric/Behavioral: Negative. Physical Examination: BP (!) 145/71 Pulse 74 Temp 98 F (36.7 C) Resp 18 Ht 5' 1 (1.549 m) Wt 146 lb 2.6 oz (66.3 kg) SpO2 95% BMI 27.62 kg/m Physical Exam Constitutional: She appears healthy. No distress. HENT: Normal cephalic and Atraumatic Eyes: Pupils are equal, round, and reactive to light. Neck: Normal range of motion and thyroid normal. Neck supple. No JVD present. No neck adenopathy. No thyromegaly present. Cardiovascular: Normal rate, regular rhythm, intact distal pulses and normal pulses. Murmur heard. Pulses: Carotid pulses are on the right side with bruit, and on the left side with bruit. Pulmonary/Chest: Effort normal and breath sounds normal. She has no wheezes. She has no rales. She exhibits no tenderness. Abdominal: Soft. Bowel sounds are normal. There is no tenderness. Musculoskeletal: Normal range of motion. She exhibits no edema or tenderness. Neurological: She is alert and oriented to person, place, and time. Skin: Skin is warm. No cyanosis. Nails show no clubbing. LABS: CBC: Lab Results Component Value Date WBC 15.5 11/17/2018 RBC 3.57 11/17/2018 HGB 10.8 11/17/2018 HCT 32.3 11/17/2018 MCV 90.5 11/17/2018 MCH 30.3 11/17/2018 MCHC 33.4 11/17/2018 RDW 14.2 11/17/2018 PLT 375 11/17/2018 CBC with Differential: Lab Results Component Value Date WBC 15.5 11/17/2018 RBC 3.57 11/17/2018 HGB 10.8 11/17/2018 HCT 32.3 11/17/2018 PLT 375 11/17/2018 MCV 90.5 11/17/2018 MCH 30.3 11/17/2018 MCHC 33.4 11/17/2018 RDW 14.2 11/17/2018 BANDSPCT 4 11/15/2018 LYMPHOPCT 16.8 11/17/2018 MONOPCT 8.3 11/17/2018 BASOPCT 0.7 11/17/2018 MONOSABS 1.3 11/17/2018 LYMPHSABS 2.6 11/17/2018 EOSABS 0.4 11/17/2018 BASOSABS 0.1 11/17/2018 CMP: Lab Results Component Value Date NA 136 11/15/2018 K 3.8 11/15/2018 CL 98 11/15/2018 CO2 27 11/15/2018 BUN 6 11/15/2018 CREATININE 0.59 11/15/2018 GFRAA >60.0 11/15/2018 LABGLOM >60.0 11/15/2018 GLUCOSE 123 11/15/2018 PROT 6.5 11/15/2018 LABALBU 3.3 11/15/2018 CALCIUM 9.1 11/15/2018 BILITOT 0.4 11/15/2018 ALKPHOS 71 11/15/2018 AST 28 11/15/2018 ALT 12 11/15/2018 BMP: Lab Results Component Value Date NA 136 11/15/2018 K 3.8 11/15/2018 CL 98 11/15/2018 CO2 27 11/15/2018 BUN 6 11/15/2018 LABALBU 3.3 11/15/2018 CREATININE 0.59 11/15/2018 CALCIUM 9.1 11/15/2018 GFRAA >60.0 11/15/2018 LABGLOM >60.0 11/15/2018 GLUCOSE 123 11/15/2018 Magnesium: No results found for: MG Troponin: No results found for: TROPONINI Active Hospital Problems Diagnosis Date Noted Impaired mobility [Z74.09] 11/15/2018 Priority: Low Spinal stenosis of lumbosacral region [M48.07] 11/15/2018 Priority: Low Assessment/Plan: 1. Tachycardia- appears to be artifact. Check 12 Lead ECG. Keep on Telemetry while here.check TSH BMP and Mag levels. 2. HTN stable * Therese Mai RN - 11/18/2018 5:16 AM EDT Patient has slept at intervals. Up to BRx5, having loose stools after receiving Lactulose. Medicated with Percoet x2. * Therese Mai RN - 11/18/2018 1:52 AM EDT Drsg to lower back changed for large amount of bloody drainage. * Mary Vega MD - 11/17/2018 6:20 PM EDT Subjective: The patient complains of moderate acute pain relieved by rest and exacerbated by activity. I am concerned about patient s fatigue. IDconsult stopped all ABX no source isolated, minimal bandemia. Elevated CRP and ESR. ROS x10: The patient also complains of severely impaired mobility and activities of daily living. Otherwise no new problems with vision, hearing, nose, mouth, throat, dermal, cardiovascular, GI, , pulmonary, musculoskeletal, psychiatric or neurological. See Rehab H&P on Rehab chart dated . Vital signs: BP 124/71 Pulse 84 Temp 98 F (36.7 C) (Oral) Resp 18 Ht 5' 1 (1.549 m) Wt 146 lb 2.6 oz (66.3 kg) SpO2 96% BMI 27.62 kg/m I/O: PO/Intake: fair PO intake, no problems observed or reported. Bowel/Bladder: continent, no problems noted. General: Patient is well developed, adequately nourished, non-obese and well kempt. HEENT: PERRLA, hearing intact to loud voice, external inspection of ear and nose benign. Inspection of lips, tongue and gums benign Musculoskeletal: No significant change in strength or tone. All joints stable. Inspection and palpation of digits and nails show no clubbing, cyanosis or inflammatory conditions. Neuro/Psychiatric: Affect: flat but pleasant. Alert and oriented to person, place and situation. No significant change in deep tendon reflexes or sensation Lungs: CTA-B. Respiration effort is normal at rest. Heart: S1 = S2, RRR. No loud murmurs. Abdomen: Soft, non-tender, no enlargement of liver or spleen. Extremities: No significant lower extremity edema or tenderness. Skin: Intact to general survey, no visualized or palpated problems. Rehabilitation: Physical therapy: FIMS: Bed Mobility: Scooting: Minimal assistance Transfers: Sit to Stand: Stand by assistance Stand to sit: Stand by assistance Bed to Chair: Stand by assistance, Ambulation 1 Surface: level tile Device: Rollator Other Apparatus: (Room Air this PM) Assistance: Stand by assistance Quality of Gait: slow raissa, narrow ANSHUL, decreased step length. Gait Deviations: Slow Raissa, Decreased step length Distance: 200ft Comments: distance limited by fatigue this pm, Stairs # Steps : 8 Stairs Height: 6 Rails: Bilateral Device: No Device Assistance: Contact guard assistance FIMS: Bed, Chair, Wheel Chair: 4 - Requires steadying assistance only <25% assist and/or requires assist with one leg only Walk: 2 - Maximal Assistance Requires up to Maximal Assistance AND requires assistance of one person to walk between 50-149 feet (Patient performs 25-49% of locomotion effort or goes between 50-149 feet) Distance Walked: 50 Wheel Chair: 0 - Activity Not Assessed/Does Not Occur Stairs: 0 - Activity Does not Occur ( 0 only for the admission assessment), , Assessment: Pt with increased distance this PM. Pt required VCs on approach to chair , attempting to leave rollator behind. Occupational therapy: FIMS: Eatin - Feeds self with setup/supervision/cues and/or requires only setup/supervision/cues to perform tube feedings Groomin - Patient independent with all grooming tasks Bathin - Able to bathe 8-9 areas Dressing-Upper: 5 - Requires setup/supervision/cues and/or requires assist with presthesis/brace only Dressing-Lower: 5 - Requires setup/supervision/cues and/or staff applies TEDS/prosthesis/brace only Toiletin - Requires setup/supervision/cues Toilet Transfer: 5 - Requires setup/supervision/cues Tub Transfer: 0 - Activity does not occur Shower Transfer: 5 - Supervision, set-up, cues, , Assessment: Pt. is an 83 year old woman from homewith spouse who [facility] with the above deficits which impact her ability to perform ADLs and IADLs. Pt. would benefit from skilled OT to maximize independence and safety with ADL tasks. Speech therapy: FIMS: Comprehension: 6 - Complex ideas 90% or device (hearing aid or glasses- if patient is primarily a visual learner) Expression: 7 - Patient expresses complex ideas/needs Social Interaction: 7 - Patient has appropriate behavior/relations 100% of the time Problem Solvin - Independent with device (e.g. notes, schedules) Memory: 6 - Patient requires device to recall (e.g. memory book) Lab/X-ray studies reviewed, analyzed and discussed with patient and staff: Recent Results (from the past 24 hour(s)) Sedimentation Rate Collection Time: 11/17/18 5:50 AM Result Value Ref Range Sed Rate 50 (H) 0 - 30 mm High sensitivity CRP Collection Time: 11/17/18 5:50 AM Result Value Ref Range CRP High Sensitivity 230.1 (H) 0.0 - 5.0 mg/L CBC Auto Differential Collection Time: 11/17/18 5:50 AM Result Value Ref Range WBC 15.5 (H) 4.8 - 10.8 K/uL RBC 3.57 (L) 4.20 - 5.40 M/uL Hemoglobin 10.8 (L) 12.0 - 16.0 g/dL Hematocrit 32.3 (L) 37.0 - 47.0 % MCV 90.5 82.0 - 100.0 fL MCH 30.3 27.0 - 31.3 pg MCHC 33.4 33.0 - 37.0 % RDW 14.2 11.5 - 14.5 % Platelets 375 130 - 400 K/uL Neutrophils % 71.4 % Lymphocytes % 16.8 % Monocytes % 8.3 % Eosinophils % 2.8 % Basophils % 0.7 % Neutrophils Absolute 11.1 (H) 1.4 - 6.5 K/uL Lymphocytes Absolute 2.6 1.0 - 4.8 K/uL Monocytes Absolute 1.3 (H) 0.2 - 0.8 K/uL Eosinophils Absolute 0.4 0.0 - 0.7 K/uL Basophils Absolute 0.1 0.0 - 0.2 K/uL Xr Chest Standard (2 Vw) Result Date: 11/05/2018 EXAMINATION: XR LUMBAR SPINE (MIN 4 VIEWS), XR CHEST (2 VW) CLINICAL HISTORY: lbp . Low back pain without specific injury. Chronic shortness of breath. COMPARISONS: None available. FINDINGS: Frontal and lateral views of chest were obtained. The heart is not enlarged. Calcified aorta is not dilated.Mediastinum is not widened or shifted. There is no active disease in the lungs. The chest wall is intact and unremarkable. 6 views of the lumbar spine were obtained. There is mild dextroscoliosis centered at L2-3. Lumbar vertebral alignment is otherwise unremarkable. There is mild to moderate vertebral body margin spurring at all levels, perhaps greatest at L3-4. There is mild/moderate narrowing of intervertebral space at L4-5. There is wide laminectomy at L4-L5 and S1. There is moderate apophyseal joint arthrosis, greatest L4-5. The heavily calcified aorta is not dilated. CONCLUSION: NO ACTIVE CARDIOPULMONARY DISEASE. DEGENERATIVE DISEASE AND POSTOPERATIVE FINDINGS, WITHOUT ACUTE SUPERIMPOSED ABNORMALITY. Xr Lumbar Spine (2-3 Views) Result Date: 11/14/2018 Patient : 1935 Age: 83 years Gender: Female Order Date: 11/14/2018 11:00 AM. Exam: XR LUMBAR SPINE (2-3 VIEWS) Number of Views: 4 Indication: Postop Comparison: 11/13/2018. Findings: Mild degenerative changes bilateral hips. No acute fracture. Posterior spinal fixation L3-L5. Vascular calcifications abdominal aorta. Surgical danna. Moderate degenerative changes L5-S1. Impression: 1. Mild bilateral osteoarthritis of the hips. 2. Posterior spinal fixation L3-L5. 3. Moderate degenerative changes L5-S1. Xr Lumbar Spine (min 4 Views) Result Date: 11/05/2018 EXAMINATION: XR LUMBAR SPINE (MIN 4 VIEWS), XR CHEST (2 VW) CLINICAL HISTORY: lbp . Low back pain without specific injury. Chronic shortness of breath. COMPARISONS: None available. FINDINGS: Frontal and lateral views of chest were obtained. The heart is not enlarged. Calcified aorta is not dilated.Mediastinum is not widened or shifted. There is no active disease in the lungs. The chest wall is intact and unremarkable. 6 views of the lumbar spine were obtained. There is mild dextroscoliosis centered at L2-3. Lumbar vertebral alignment is otherwise unremarkable. There is mild to moderate vertebral body margin spurring at all levels, perhaps greatest at L3-4. There is mild/moderate narrowing of intervertebral space at L4-5. There is wide laminectomy at L4-L5 and S1. There is moderate apophyseal joint arthrosis, greatest L4-5. The heavily calcified aorta is not dilated. CONCLUSION: NO ACTIVE CARDIOPULMONARY DISEASE. DEGENERATIVE DISEASE AND POSTOPERATIVE FINDINGS, WITHOUT ACUTE SUPERIMPOSED ABNORMALITY. Mri Lumbar Spine W Wo Contrast Result Date: 11/05/2018 EXAMINATION: MRI LUMBAR SPINE W WO CONTRAST CLINICAL HISTORY: leg weakness hx surgery COMPARISONS: November 05, 2018 x-ray FINDINGS: Multisequence, multiplanar MRI of the lumbar spine was obtained, including imaging before and after intravenous administration of 15 mL ProHance. Examination is abnormal. There is large herniated disc fragment that appears to arisen from the L4-5 disc, left of midline and migrating in a cephalad direction into the left L4 lateral recess. In addition, there is evidence of a component of this disc herniation extending into the left L4 neural foramen, producing moderately severe left L4 foraminal stenosis. L4-5 disc is moderately narrowed. There is generalized disc bulging at L4-5. Right L4 foraminal stenosis is moderate. There is advanced apophyseal joint arthrosis at L4-5. Postoperative changes, with wide laminectomy at L4, L5-S1 is incidentally noted. Theoperative site is widely patent, without central spinal canal stenosis. There is moderate narrowingof the L3-4 intervertebral disc, with generalized disc bulging. In addition, there is superimposed L3-4 disc protrusion toward the left, entering the left L3 neural foramen, producing moderately severe left L3 foraminal stenosis. In addition, a combination of facet hypertrophy, thickening of ligamenta flava and disc bulging is producing moderately severe central spinal canal stenosis at L3- 4. TheL2-3 disc is moderately narrowed and shows generalized disc bulging without disc herniation. Spinalcanal caliber at L2-3 is well-maintained. The L1- 2 intervertebral level is unremarkable. Spinal canal at L1-L2 is normal. The L5- S1 disc shows mild generalized bulging. The operative site at L5-S1 iswidely patent. Contrast-enhanced images show abnormal enhancement of the coverings of the spinal canal at the operative site, without abnormal enhancement within the thecal sac. The granulation tissue at the laminectomy site shows pronounced increased enhancement. The herniated disc fragment withinthe left L4 lateral recess shows enhancement of the soft tissues around it, without enhancement of t he disc fragment itself. This does not have the appearance of a neurinoma or nerve sheath tumor. CONCLUSION: LARGE HERNIATED DISC FRAGMENT WITHIN THE LEFT L4 LATERAL RECESS HAVING ARISEN FROM THE L4-5 INTERVERTEBRAL DISC, RESULTING IN PRONOUNCED LEFT L4 LATERAL RECESS STENOSIS. IN ADDITION, THERE IS MODERATELY SEVERE LEFT L4 FORAMINAL STENOSIS. THERE IS MODERATELY SEVERE LEFT L3 FORAMINAL STENOSIS, WITH MODERATELY SEVERE L3-4 CENTRAL SPINAL CANAL STENOSIS. THE OPERATIVE SITE AT L4, L5 AND S1 ISWIDELY PATENT. THERE ARE NO SIGNS OF UNDERLYING PATHOLOGY OR RECENT INJURY. Xr Chest Portable Result Date: 11/16/2018 EXAMINATION: XR CHEST PORTABLE CLINICAL HISTORY: fever . History of back surgery. COMPARISONS: Noneavailable. FINDINGS: Single AP portable view the chest obtained on November 15, 2018 at 2124 hours. The heart is not enlarged. Mediastinum is not widened. Calcified aorta is not dilated. Lungs are clear. The chest wall is unremarkable. CONCLUSION: NO ACUTE PROCESS Fluoro For Surgical Procedures Result Date: 11/13/2018 Patient : 1935 Age: 83 years Gender: Female Order Date: 11/13/2018 10:15 AM. Exam: FLUORO FOR SURGICAL PROCEDURES Number of Views: 12 Indication: Pain Comparison: MRI lumbar spine 11/05/2018. Findings: Surgical instruments posterior to the L3 L5 motion segment level. One instrument posterior to the L4-L5 intervertebral disc. Fluoroscopic time of 47.0 seconds. Impression: Surgical instrumentation location as above, fluoroscopic guidance, fluoroscopic time 47.0 seconds. Us Carotid Artery Bilateral Result Date: 11/16/2018 Patient : 1935 Age: 83 years Gender: Female Order Date: 11/15/2018 6:15 PM EXAM: US CAROTID ARTERY BILATERAL NUMBER OF IMAGES: 68 INDICATION: bruits. sycnope. COMPARISON: None FINDINGS: Right side: Proximal common carotid artery peak systolic velocity is 106.0 centimeters per second Mid, common carotid artery peak systolic velocity is 111.0 centimeters per second. Distal common carotid artery peak systolic velocity is 91.0 centimeters per second External carotid artery peaksystolic velocity is 603.0 centimeters per second. Proximal internal carotid artery peak systolic velocity is 147.0 centimeters per second Mid internal carotid artery peak systolic velocity is 125.0 centimeters per second. Distal internal carotid artery peak systolic velocity is 73.7 centimeters per second Vertebral artery peak systolic velocity is 97.2 centimeters per second. Vertebral artery flow is antegrade ICA/CCA ratio is 1.32 Left side: Proximal common carotid artery peak systolic velocity is 123.0 centimeters per second Mid, common carotid artery peak systolic velocity is 120.0 centimeters per second. Distal common carotid artery peak systolic velocity is 118.0 centimeters per second. External carotid artery peak systolic velocity is 507.0 centimeters per second. Proximal internalcarotid artery peak systolic velocity is 204.0 centimeters per second Mid internal carotid artery pe ak systolic velocity is 147.0 centimeters per second. Distal internal carotid artery peak systolic velocity is 124.0 centimeters per second Vertebral artery peak systolic velocity is 46.3 centimetersper second. Vertebral artery flow is antegrade ICA/CCA ratio is 1.69. Scattered areas of calcified and noncalcified plaque bilateral carotid arterial systems Peak systolic velocities, ICA/CCA ratios and antegrade vertebral artery flow as above. See above for details of the examination and below for internal carotid artery interpretation guidelines. 1. Elevated peak systolic velocity involving the proximal and mid right internal carotid artery falling within the estimated luminal stenosis range of 50-69%. 2. Elevated peak systolic velocity of the proximal and mid left internal carotid artery falling within the estimated luminal stenosis range of 50-69%. GOSINK CRITERIA Diameter PSV t EDV t PSV EDV Stenosis Site % cm/sec cm/sec ICA/CCA ICA/CCA 0-49 <124 <40 <2:1 --- --- 50- 69 125-225 40-100 >2:1 --- --- 70-89 225-325 >100 >4:1 >5:1 --- 90%+ >325 >100 >4:1 >9:1 Damped resistive CCA >95% May be May be Damped ---Damped resistive CCA decreased decreased resistive CCA Us Dup Lower Extremities Bilateral Venous Result Date: 11/17/2018 US DUP LOWER EXTREMITIES BILATERAL VENOUS : 11/16/2018 CLINICAL HISTORY: LEG SWELLING, PAIN, DVT SUSPECTED . COMPARISON: None available. Grayscale, compression, color and waveform Doppler analysis of both lower extremity deep venous systems was performed with augmentation. FINDINGS: There is no deepvenous thrombosis, abnormal masses, fluid collections or other findings of concern identified within either lower extremity. NO DVT IDENTIFIED IN EITHER LOWER EXTREMITY. Xr Spine Entire (2-3 Vws) Result Date: 11/13/2018 Patient : 1935 Age: 83 years Gender: Female Order Date: 11/13/2018 8:00 AM. Exam: XR SPINE ENTIRE (2-3 VIEWS) Number of Views: 6 Indication: Scoliosis survey, preoperative, mid and lower back pain Comparison: Lumbar spine radiographs 11/05/2018 Findings: Thoracic aortic vascular calcifications. There is approximately 13 degrees convex right spinal curvature centered about the L3 vertebral body. Visualized lungs are unremarkable. Surgical clips right upper abdomen. Nonobstructive bowel gas pattern. Normal sagittal alignment incompletely characterized. Mild to moderate degenerative disc disease L3-L5. Impression: 1. Approximately 13 degrees convex right spinal curvature centered about L3 vertebral body. 2. Mild to moderate degenerative disc disease L3-L5. 3. Vascular calcifications thoracic aorta Previous extensive, complex labs, notes and diagnostics reviewed and analyzed. ALLERGIES: Allergies as of 11/15/2018 - Review Complete 11/15/2018 Allergen Reaction Noted Prednisone Hives 09/01/2017 (please also verify by checking MAR) Complex Physical Medicine & Rehab Issues Assess & Plan: 1. Severe abnormality of gait and mobility and impaired self-care and ADL's secondary to progressive NTSCI Spinal stenosis s/p L234 fusion . Functional and medical status reassessed regarding patients ability to participate in therapies and patient found to be able to participate in acute intensive comprehensive inpatient rehabilitation program including PT/OT to improve balance, ambulation, ADLs, and to improve the P/AROM. Therapeutic modifications regarding activities in therapies, place, amount of time per day and intensity of therapy made daily. In bed therapies or bedside therapies prn. 2. Bowel and Bladder dysfunction: frequent toileting, ambulate to bathroom with assistance, check post void residuals. Check for C.difficile x1 if >2 loose stools in 24 hours, continue bowel &bladder program. Monitor bowel and bladder function. Lactinex 2 PO every AC. MOM prn, Brown Bomb prn, Glycerin suppository prn, enema prn. 3. Moderate generalized OA pain: reassess pain every shift and prior to and after each therapy session, give prn Tylenol and see Mar, modalities prn in therapy, Lidoderm, K-pad prn. 4. Skin healing and breakdown risk: continue pressure relief program. Daily skin exams and reports from nursing. 5. Fatigue due to nutritional and hydration deficiency: continue to monitor I&O s, calorie counts prn, dietary consult prn. 6. Acute episodic insomnia with situational adjustment disorder: prn Ambien, monitor for day time sedation. 7. Falls risk elevated: patient to use call light to get nursing assistance to get up, bed and chair alarm. 8. Elevated DVT risk: progressive activities in PT, continue prophylaxis SOFIYA hose, elevation and See MAR . 9. Complex discharge planning: Weekly team meeting every Monday to assess progress towards goals, discuss and address social, psychological and medical comorbidities and to address difficulties they may be having progressing in therapy. Patient and family education is in progress. The patient is tofollow-up with their family physician after discharge. Complex Active General Medical Issues that complicate care Assess & Plan: Patient Active Problem List Diagnosis Intractable back pain Lumbar spondylosis Impaired mobility Spinal stenosis of lumbosacral region 1. fever and leukocytosis thought to be reactive will dc abx, follow up labs. Blanca Holguin D.O., PM&R Attending [address] [place] [address] * Dana Craig RN - 11/17/2018 5:45 PM EDT Monitor room called, said pt had about 18 sec run of svt up to 218; notified cardio. * Faye Summers PTA - 11/17/2018 4:07 PM EDT Physical Therapy Rehab Treatment Note Facility/Department: [facility] [place] Room: [id number]/R238-01 NAME: Hiram Madrid : 1935 (83 y.o.) CODE STATUS: Full Code Date of Service: 11/17/2018 Chart Reviewed: Yes Family / Caregiver Present: Yes Restrictions: Restrictions/Precautions: Fall Risk Position Activity Restriction Spinal Precautions: No Bending, No Lifting, No Twisting Other position/activity restrictions: no brace - per nursing communication SUBJECTIVE: Subjective: Pt agreeable to make up missed minutes from AM Pain Screening Patient Currently in Pain: Yes Post Treatment Pain Screenin Pain Assessment Pain Assessment: 0-10 Pain Level: 4 Pain Type: Surgical pain Pain Location: Back Pain Orientation: Right;Lower Pain Descriptors: Aching;Burning(pinching) OBJECTIVE: Transfers Sit to Stand: Stand by assistance Stand to sit: Stand by assistance Comment: VCs for safety on approach to chair Ambulation Ambulation?: Yes Ambulation 1 Surface: level tile Device: Rollator Assistance: Stand by assistance Quality of Gait: slow raissa, narrow ANSHUL, decreased step length. Gait Deviations: Slow Raissa;Decreased step length Distance: 200ft ASSESSMENT/COMMENTS: Body structures, Functions, Activity limitations: Decreased functional mobility ;Decreased endurance;Decreased balance;Increased pain;Decreased strength Assessment: Pt with increased distance this PM. Pt required VCs on approach to chair , attempting to leave rollator behind. Prognosis: Good REQUIRES PT FOLLOW UP: Yes PLAN OF CARE/Safety: Safety Devices Type of devices: All fall risk precautions in place Therapy Time: Individual Time In 1548 Time Out 1557 Minutes 9 Minutes:9 Transfer/Bed mobility trainin Gait trainin Neuro re education: Therapeutic ex: Patient participated in above/following treatment session to complete previously scheduled minutes from AM. Faye Summers, ASSISTANT SALES DIRECTOR, 11/17/18 at 4:07 PM * Rachael Graf LPN - 11/17/2018 3:10 PM EDT Pt complains of lower back pain. She took percocet this AM for a pain level of 9. At this time, after therapy and returning to her room, her pain has risen to a 10 and she was given another PRN percocet. She hasn't had a BM for 4 days. Gave her a dose of lactolose. Will continue to monitor. * Roselyn Schroeder OTA - 11/17/2018 2:51 PM EDT Occupational Therapy Facility/Department: [facility] Daily Treatment Note NAME: Hiram Madrid : 1935 Date of Service: 11/17/2018 Discharge Recommendations: Continue to assess pending progress Assessment Activity Tolerance Activity Tolerance: Patient Tolerated treatment well Safety Devices Safety Devices in place: Yes Type of devices: All fall risk precautions in place Patient Diagnosis(es): There were no encounter diagnoses. has a past medical history of Arthritis, CAD (coronary artery disease), Hyperlipidemia, Hypertension, diabetes mellitus, congenital hypothyroidism, congenital glaucoma, hepatic fibrosis, andpolycystic kidney syndrome (HCC), Other disorders of kidney and ureter in diseases classified elsewhere, and Thyroid disease. has a past surgical history that includes back surgery; Cholecystectomy; Appendectomy; tessa and bso (cervix removed) (Right); and lumbar fusion (N/A, 11/13/2018). Restrictions Restrictions/Precautions Restrictions/Precautions: Fall Risk Position Activity Restriction Spinal Precautions: No Bending, No Lifting, No Twisting Other position/activity restrictions: no brace - per nursing communication Subjective General Chart Reviewed: Yes Patient assessed for rehabilitation services?: Yes Family / Caregiver Present: Yes(Spouse and daughter) Referring Practitioner: Dr. Coker Diagnosis: Impaired mobility and gait secondary to NTSCI secondary to lumbar stenosis, radiculopathy, and spondylosis Pain Assessment Pain Assessment: 0-10 Pain Level: 7 Pain Type: Surgical pain Pain Location: Back Pain Orientation: Lower Pain Descriptors: Aching Pain Frequency: Continuous Pre Treatment Pain Screening Pain at present: 7 Scale Used: Numeric Score Intervention List: Patient able to continue with treatment;Patient declined any intervention Comments / Details: Pt. already had pain medication Vital Signs Patient Currently in Pain: Yes Orientation Objective Pt. required cues for back precautions. Pt. was educated on them and encouraged her to remember andunderstand them to promote independence and safety with ADLs. Pt. engaged in B UE strengthening task with 1 lb wrist weights on B wrists. Pt. reached with B hands to tie eggs on various height poles with ribbon. Pt. was able to reach 3 out of 4 poles while seated. Pt. stood to untie the ribbon and separate the eggs and ribbon into their own container. Pt. hadSupervision for balance and Fair endurance for task. Pt. was able to state her back precautions before leaving independently. Pt. was able to change her hearing aid battery independently. Plan Plan Times per week: 5-7x/week Times per day: Daily Plan weeks: 1 Current Treatment Recommendations: Strengthening, Balance Training, Functional Mobility Training, Endurance Training, Patient/Caregiver Education & Training, Equipment Evaluation, Education, & procurement, Neuromuscular Re-education, Self-Care / ADL, Home Management Training, Positioning, Cognitive/Perceptual Training, Safety Education & Training Goals Patient Goals Patient goals : To walk on my own, go home and do regular chores and things Therapy Time Individual Concurrent Group Co-treatment Time In 1430 Time Out 1500 Minutes 30 CARLA Martinez * Angi Ibanez - 11/17/2018 2:15 PM EDT Physical Therapy Rehab Treatment Note Facility/Department: [facility] Room: [place] [address] NAME: Hiram Madrid : 1935 (83 y.o.) CODE STATUS: Full Code Date of Service: 11/17/2018 Family / Caregiver Present: No Restrictions: SUBJECTIVE: Subjective: pt reports she is ready to get moving. Response To Previous Treatment: Patient with no complaints from previous session. Pre Treatment Pain Screening Pain at present: 3 Scale Used: Numeric Score Intervention List: Patient able to continue with treatment;Patient declined any intervention Comments / Details: Pt reports aching in lower back, states she already recieved pain meds recently Post Treatment Pain Screenin04/29 OBJECTIVE: Transfers Sit to Stand: Stand by assistance Stand to sit: Stand by assistance Bed to Chair: Stand by assistance Comment: toilet transfer performed PM Ambulation 1 Surface: carpet;level tile Device: Rollator Assistance: Stand by assistance Quality of Gait: slow raissa, naroow ANSHUL, decreased step length. Gait Deviations: Slow Raissa;Decreased step length Distance: 100ft Comments: distance limited by fatigue this pm Stairs/Curb Stairs?: Yes Stairs # Steps : 8 Stairs Height: 6 Rails: Bilateral Device: No Device Assistance: Contact guard assistance Activity Tolerance Activity Tolerance: Patient Tolerated treatment well Exercises Gluteal Sets: x20 Hip Flexion: x 20 with focus on core Hip Abduction: seated with RTB x20, standing at bar x10 B Knee Long Arc Quad: x 20 Ankle Pumps: x 20 Neurodevelopmental Techniques: fwd and side stepping over bolster, toe taps on 4 inch step to increase step height, improve weight shifting ability. Other exercises Other exercises?: Yes Other exercises 1: Sink ex x10 ea except for hip ext ASSESSMENT/COMMENTS: PLAN OF CARE/Safety: Safety Devices Type of devices: All fall risk precautions in place Therapy Time: Individual Time In 1300 Time Out 1330 Minutes 30 Minutes:30 Transfer/Bed mobility trainin Gait trainin Neuro re education:10 Therapeutic ex: Angi Ibanez, 11/17/18 at 2:15 PM * ShamarMargaritaAngi - 11/17/2018 12:19 PM EDT Physical Therapy Rehab Treatment Note Facility/Department: [facility] Room: [place] [id number] NAME: Hiram Madrid : 1935 (83 y.o.) CODE STATUS: Full Code Date of Service: 11/17/2018 Family / Caregiver Present: No Restrictions: SUBJECTIVE: Subjective: pt reports she is ready to get moving. Response To Previous Treatment: Patient with no complaints from previous session. Pre Treatment Pain Screening Pain at present: 4 Scale Used: Numeric Score Intervention List: Patient able to continue with treatment;Patient declined any intervention Comments / Details: Pt reports aching in lower back, states she already recieved pain meds this am Post Treatment Pain Screenin05/30 nsg notified. OBJECTIVE: Transfers Sit to Stand: Stand by assistance Stand to sit: Stand by assistance Ambulation 1 Surface: carpet;level tile Device: Rollator Assistance: Stand by assistance Quality of Gait: slow raissa, naroow ANSHUL, decreased step length. Gait Deviations: Slow Raissa;Decreased step length Distance: 100ft Comments: mild SOB noted following ambulation. Stairs/Curb Stairs?: Yes Stairs # Steps : 8 Stairs Height: 6 Rails: Bilateral Device: No Device Assistance: Contact guard assistance Activity Tolerance Activity Tolerance: Patient Tolerated treatment well Exercises Gluteal Sets: x20 Hip Flexion: x 20 with focus on core Hip Abduction: seated with RTB x20, standing at bar x10 B Knee Long Arc Quad: x 20 Ankle Pumps: x 20 Neurodevelopmental Techniques: Fwd and back walking at parallel bars. repeated fwd and side steps with x1 UE support Other exercises Other exercises?: Yes Other exercises 1: Sink ex x10 ea except for hip ext ASSESSMENT/COMMENTS: ended treatment session 5 mins early due to MD visit with pt. PLAN OF CARE/Safety: Safety Devices Type of devices: All fall risk precautions in place Therapy Time: Individual Time In 0855 Time Out 0950 Minutes 55 Minutes:55 Transfer/Bed mobility training: Gait trainin Neuro re education:15 Therapeutic ex:20 Angi Ibanez, 11/17/18 at 12:20 PM * Roselyn Schroeder OTA - 11/17/2018 8:43 AM EDT Occupational Therapy Facility/Department: [facility] Daily Treatment Note NAME: Hiram Madrid : 1935 Date of Service: 11/17/2018 Discharge Recommendations: Continue to assess pending progress Assessment Activity Tolerance Activity Tolerance: Patient Tolerated treatment well Safety Devices Safety Devices in place: Yes Type of devices: All fall risk precautions in place Patient Diagnosis(es): There were no encounter diagnoses. has a past medical history of Arthritis, CAD (coronary artery disease), Hyperlipidemia, Hypertension, diabetes mellitus, congenital hypothyroidism, congenital glaucoma, hepatic fibrosis, andpolycystic kidney syndrome (HCC), Other disorders of kidney and ureter in diseases classified elsewhere, and Thyroid disease. has a past surgical history that includes back surgery; Cholecystectomy; Appendectomy; tessa and bso (cervix removed) (Right); and lumbar fusion (N/A, 11/13/2018). Restrictions Restrictions/Precautions Restrictions/Precautions: Fall Risk Position Activity Restriction Spinal Precautions: No Bending, No Lifting, No Twisting Other position/activity restrictions: no brace - per nursing communication Subjective General Chart Reviewed: Yes Patient assessed for rehabilitation services?: Yes Family / Caregiver Present: Yes(Spouse and daughter) Referring Practitioner: Dr. Coker Diagnosis: Impaired mobility and gait secondary to NTSCI secondary to lumbar stenosis, radiculopathy, and spondylosis Pain Assessment Pain Assessment: 0-10 Pain Level: 4 Pain Type: Surgical pain Pain Location: Back Pain Orientation: Lower Pain Descriptors: Aching Pain Frequency: Continuous Pre Treatment Pain Screening Pain at present: 5 Scale Used: Numeric Score Intervention List: Patient able to continue with treatment Vital Signs Patient Currently in Pain: Yes Orientation Objective Pt. completed shower adl at below status. ADL Equipment Provided: Sock aid;Plumbing Mechanic Grooming: Independent UE Bathing: Setup LE Bathing: Minimal assistance UE Dressing: Setup LE Dressing: Setup;Supervision Toileting: Stand by assistance Toilet Transfers Toilet - Technique: Ambulating Equipment Used: Grab bars Toilet Transfer: Stand by assistance Shower Transfers Shower - Transfer From: Walker Shower - Transfer Type: To and From Shower - Transfer To: Shower seat with back Shower - Technique: Ambulating Shower Transfers: Stand by assistance Cognition Overall Cognitive Status: WFL Plan Plan Times per week: 5-7x/week Times per day: Daily Plan weeks: 1 Current Treatment Recommendations: Strengthening, Balance Training, Functional Mobility Training, Endurance Training, Patient/Caregiver Education & Training, Equipment Evaluation, Education, & procurement, Neuromuscular Re-education, Self-Care / ADL, Home Management Training, Positioning, Cognitive/Perceptual Training, Safety Education & Training Goals Patient Goals Patient goals : To walk on my own, go home and do regular chores and things Therapy Time Individual Concurrent Group Co-treatment Time In 0730 Time Out 0830 Minutes 60 CARLA Martinez * Mary Vega MD - 11/16/2018 8:20 PM EDT Subjective: The patient complains of moderate acute pain relieved by rest and exacerbated by activity. I am concerned about patient s fatigue. ROS x10: The patient also complains of severely impaired mobility and activities of daily living. Otherwise no new problems with vision, hearing, nose, mouth, throat, dermal, cardiovascular, GI, , pulmonary, musculoskeletal, psychiatric or neurological. See Rehab H&P on Rehab chart dated . Vital signs: BP 124/71 Pulse 84 Temp 98 F (36.7 C) (Oral) Resp 18 Ht 5' 1 (1.549 m) Wt 146 lb 2.6 oz (66.3 kg) SpO2 96% BMI 27.62 kg/m I/O: PO/Intake: fair PO intake, no problems observed or reported. Bowel/Bladder: continent, no problems noted. General: Patient is well developed, adequately nourished, non-obese and well kempt. HEENT: PERRLA, hearing intact to loud voice, external inspection of ear and nose benign. Inspection of lips, tongue and gums benign Musculoskeletal: No significant change in strength or tone. All joints stable. Inspection and palpation of digits and nails show no clubbing, cyanosis or inflammatory conditions. Neuro/Psychiatric: Affect: flat but pleasant. Alert and oriented to person, place and situation. No significant change in deep tendon reflexes or sensation Lungs: CTA-B. Respiration effort is normal at rest. Heart: S1 = S2, RRR. No loud murmurs. Abdomen: Soft, non-tender, no enlargement of liver or spleen. Extremities: No significant lower extremity edema or tenderness. Skin: Intact to general survey, no visualized or palpated problems. Rehabilitation: Physical therapy: FIMS: Bed Mobility: Scooting: Minimal assistance Transfers: Sit to Stand: Stand by assistance Stand to sit: Stand by assistance Bed to Chair: Stand by assistance, Ambulation 1 Surface: level tile Device: Rollator Other Apparatus: (Room Air this PM) Assistance: Stand by assistance Quality of Gait: slow raissa, narrow ANSHUL, decreased step length. Gait Deviations: Slow Raissa, Decreased step length Distance: 200ft Comments: distance limited by fatigue this pm, Stairs # Steps : 8 Stairs Height: 6 Rails: Bilateral Device: No Device Assistance: Contact guard assistance FIMS: Bed, Chair, Wheel Chair: 4 - Requires steadying assistance only <25% assist and/or requires assist with one leg only Walk: 2 - Maximal Assistance Requires up to Maximal Assistance AND requires assistance of one person to walk between 50-149 feet (Patient performs 25-49% of locomotion effort or goes between 50-149 feet) Distance Walked: 50 Wheel Chair: 0 - Activity Not Assessed/Does Not Occur Stairs: 0 - Activity Does not Occur ( 0 only for the admission assessment), , Assessment: Pt with increased distance this PM. Pt required VCs on approach to chair , attempting to leave rollator behind. Occupational therapy: FIMS: Eatin - Feeds self with setup/supervision/cues and/or requires only setup/supervision/cues to perform tube feedings Groomin - Patient independent with all grooming tasks Bathin - Able to bathe 8-9 areas Dressing-Upper: 5 - Requires setup/supervision/cues and/or requires assist with presthesis/brace only Dressing-Lower: 5 - Requires setup/supervision/cues and/or staff applies TEDS/prosthesis/brace only Toiletin - Requires setup/supervision/cues Toilet Transfer: 5 - Requires setup/supervision/cues Tub Transfer: 0 - Activity does not occur Shower Transfer: 5 - Supervision, set-up, cues, , Assessment: Pt. is an 83 year old woman from homewith spouse who presents to [facility] with the above deficits which impact her ability to perform ADLs and IADLs. Pt. would benefit from skilled OT to maximize independence and safety with ADL tasks. Speech therapy: FIMS: Comprehension: 6 - Complex ideas 90% or device (hearing aid or glasses- if patient is primarily a visual learner) Expression: 7 - Patient expresses complex ideas/needs Social Interaction: 7 - Patient has appropriate behavior/relations 100% of the time Problem Solvin - Independent with device (e.g. notes, schedules) Memory: 6 - Patient requires device to recall (e.g. memory book) Lab/X-ray studies reviewed, analyzed and discussed with patient and staff: Recent Results (from the past 24 hour(s)) Sedimentation Rate Collection Time: 11/17/18 5:50 AM Result Value Ref Range Sed Rate 50 (H) 0 - 30 mm High sensitivity CRP Collection Time: 11/17/18 5:50 AM Result Value Ref Range CRP High Sensitivity 230.1 (H) 0.0 - 5.0 mg/L CBC Auto Differential Collection Time: 11/17/18 5:50 AM Result Value Ref Range WBC 15.5 (H) 4.8 - 10.8 K/uL RBC 3.57 (L) 4.20 - 5.40 M/uL Hemoglobin 10.8 (L) 12.0 - 16.0 g/dL Hematocrit 32.3 (L) 37.0 - 47.0 % MCV 90.5 82.0 - 100.0 fL MCH 30.3 27.0 - 31.3 pg MCHC 33.4 33.0 - 37.0 % RDW 14.2 11.5 - 14.5 % Platelets 375 130 - 400 K/uL Neutrophils % 71.4 % Lymphocytes % 16.8 % Monocytes % 8.3 % Eosinophils % 2.8 % Basophils % 0.7 % Neutrophils Absolute 11.1 (H) 1.4 - 6.5 K/uL Lymphocytes Absolute 2.6 1.0 - 4.8 K/uL Monocytes Absolute 1.3 (H) 0.2 - 0.8 K/uL Eosinophils Absolute 0.4 0.0 - 0.7 K/uL Basophils Absolute 0.1 0.0 - 0.2 K/uL Xr Chest Standard (2 Vw) Result Date: 11/05/2018 EXAMINATION: XR LUMBAR SPINE (MIN 4 VIEWS), XR CHEST (2 VW) CLINICAL HISTORY: lbp . Low back pain without specific injury. Chronic shortness of breath. COMPARISONS: None available. FINDINGS: Frontal and lateral views of chest were obtained. The heart is not enlarged. Calcified aorta is not dilated.Mediastinum is not widened or shifted. There is no active disease in the lungs. The chest wall is intact and unremarkable. 6 views of the lumbar spine were obtained. There is mild dextroscoliosis centered at L2-3. Lumbar vertebral alignment is otherwise unremarkable. There is mild to moderate vertebral body margin spurring at all levels, perhaps greatest at L3-4. There is mild/moderate narrowing of intervertebral space at L4-5. There is wide laminectomy at L4-L5 and S1. There is moderate apophyseal joint arthrosis, greatest L4-5. The heavily calcified aorta is not dilated. CONCLUSION: NO ACTIVE CARDIOPULMONARY DISEASE. DEGENERATIVE DISEASE AND POSTOPERATIVE FINDINGS, WITHOUT ACUTE SUPERIMPOSED ABNORMALITY. Xr Lumbar Spine (2-3 Views) Result Date: 11/14/2018 Patient : 1935 Age: 83 years Gender: Female Order Date: 11/14/2018 11:00 AM. Exam: XR LUMBAR SPINE (2-3 VIEWS) Number of Views: 4 Indication: Postop Comparison: 11/13/2018. Findings: Mild degenerative changes bilateral hips. No acute fracture. Posterior spinal fixation L3-L5. Vascular calcifications abdominal aorta. Surgical danna. Moderate degenerative changes L5-S1. Impression: 1. Mild bilateral osteoarthritis of the hips. 2. Posterior spinal fixation L3-L5. 3. Moderate degenerative changes L5-S1. Xr Lumbar Spine (min 4 Views) Result Date: 11/05/2018 EXAMINATION: XR LUMBAR SPINE (MIN 4 VIEWS), XR CHEST (2 VW) CLINICAL HISTORY: lbp . Low back pain without specific injury. Chronic shortness of breath. COMPARISONS: None available. FINDINGS: Frontal and lateral views of chest were obtained. The heart is not enlarged. Calcified aorta is not dilated.Mediastinum is not widened or shifted. There is no active disease in the lungs. The chest wall is intact and unremarkable. 6 views of the lumbar spine were obtained. There is mild dextroscoliosis centered at L2-3. Lumbar vertebral alignment is otherwise unremarkable. There is mild to moderate vertebral body margin spurring at all levels, perhaps greatest at L3-4. There is mild/moderate narrowing of intervertebral space at L4-5. There is wide laminectomy at L4-L5 and S1. There is moderate apophyseal joint arthrosis, greatest L4-5. The heavily calcified aorta is not dilated. CONCLUSION: NO ACTIVE CARDIOPULMONARY DISEASE. DEGENERATIVE DISEASE AND POSTOPERATIVE FINDINGS, WITHOUT ACUTE SUPERIMPOSED ABNORMALITY. Mri Lumbar Spine W Wo Contrast Result Date: 11/05/2018 EXAMINATION: MRI LUMBAR SPINE W WO CONTRAST CLINICAL HISTORY: leg weakness hx surgery COMPARISONS: November 05, 2018 x-ray FINDINGS: Multisequence, multiplanar MRI of the lumbar spine was obtained, including imaging before and after intravenous administration of 15 mL ProHance. Examination is abnormal. There is large herniated disc fragment that appears to arisen from the L4-5 disc, left of midline and migrating in a cephalad direction into the left L4 lateral recess. In addition, there is evidence of a component of this disc herniation extending into the left L4 neural foramen, producing moderately severe left L4 foraminal stenosis. L4-5 disc is moderately narrowed. There is generalized disc bulging at L4-5. Right L4 foraminal stenosis is moderate. There is advanced apophyseal joint arthrosis at L4-5. Postoperative changes, with wide laminectomy at L4, L5-S1 is incidentally noted. Theoperative site is widely patent, without central spinal canal stenosis. There is moderate narrowingof the L3-4 intervertebral disc, with generalized disc bulging. In addition, there is superimposed L3-4 disc protrusion toward the left, entering the left L3 neural foramen, producing moderately severe left L3 foraminal stenosis. In addition, a combination of facet hypertrophy, thickening of ligamenta flava and disc bulging is producing moderately severe central spinal canal stenosis at L3- 4. TheL2-3 disc is moderately narrowed and shows generalized disc bulging without disc herniation. Spinalcanal caliber at L2-3 is well-maintained. The L1- 2 intervertebral level is unremarkable. Spinal canal at L1-L2 is normal. The L5- S1 disc shows mild generalized bulging. The operative site at L5-S1 iswidely patent. Contrast-enhanced images show abnormal enhancement of the coverings of the spinal canal at the operative site, without abnormal enhancement within the thecal sac. The granulation tissue at the laminectomy site shows pronounced increased enhancement. The herniated disc fragment withinthe left L4 lateral recess shows enhancement of the soft tissues around it, without enhancement of t he disc fragment itself. This does not have the appearance of a neurinoma or nerve sheath tumor. CONCLUSION: LARGE HERNIATED DISC FRAGMENT WITHIN THE LEFT L4 LATERAL RECESS HAVING ARISEN FROM THE L4-5 INTERVERTEBRAL DISC, RESULTING IN PRONOUNCED LEFT L4 LATERAL RECESS STENOSIS. IN ADDITION, THERE IS MODERATELY SEVERE LEFT L4 FORAMINAL STENOSIS. THERE IS MODERATELY SEVERE LEFT L3 FORAMINAL STENOSIS, WITH MODERATELY SEVERE L3-4 CENTRAL SPINAL CANAL STENOSIS. THE OPERATIVE SITE AT L4, L5 AND S1 ISWIDELY PATENT. THERE ARE NO SIGNS OF UNDERLYING PATHOLOGY OR RECENT INJURY. Xr Chest Portable Result Date: 11/16/2018 EXAMINATION: XR CHEST PORTABLE CLINICAL HISTORY: fever . History of back surgery. COMPARISONS: Noneavailable. FINDINGS: Single AP portable view the chest obtained on November 15, 2018 at 2124 hours. The heart is not enlarged. Mediastinum is not widened. Calcified aorta is not dilated. Lungs are clear. The chest wall is unremarkable. CONCLUSION: NO ACUTE PROCESS Fluoro For Surgical Procedures Result Date: 11/13/2018 Patient : 1935 Age: 83 years Gender: Female Order Date: 11/13/2018 10:15 AM. Exam: FLUORO FOR SURGICAL PROCEDURES Number of Views: 12 Indication: Pain Comparison: MRI lumbar spine 11/05/2018. Findings: Surgical instruments posterior to the L3 L5 motion segment level. One instrument posterior to the L4-L5 intervertebral disc. Fluoroscopic time of 47.0 seconds. Impression: Surgical instrumentation location as above, fluoroscopic guidance, fluoroscopic time 47.0 seconds. Us Carotid Artery Bilateral Result Date: 11/16/2018 Patient : 1935 Age: 83 years Gender: Female Order Date: 11/15/2018 6:15 PM EXAM: US CAROTID ARTERY BILATERAL NUMBER OF IMAGES: 68 INDICATION: bruits. sycnope. COMPARISON: None FINDINGS: Right side: Proximal common carotid artery peak systolic velocity is 106.0 centimeters per second Mid, common carotid artery peak systolic velocity is 111.0 centimeters per second. Distal common carotid artery peak systolic velocity is 91.0 centimeters per second External carotid artery peaksystolic velocity is 603.0 centimeters per second. Proximal internal carotid artery peak systolic velocity is 147.0 centimeters per second Mid internal carotid artery peak systolic velocity is 125.0 centimeters per second. Distal internal carotid artery peak systolic velocity is 73.7 centimeters per second Vertebral artery peak systolic velocity is 97.2 centimeters per second. Vertebral artery flow is antegrade ICA/CCA ratio is 1.32 Left side: Proximal common carotid artery peak systolic velocity is 123.0 centimeters per second Mid, common carotid artery peak systolic velocity is 120.0 centimeters per second. Distal common carotid artery peak systolic velocity is 118.0 centimeters per second. External carotid artery peak systolic velocity is 507.0 centimeters per second. Proximal internalcarotid artery peak systolic velocity is 204.0 centimeters per second Mid internal carotid artery pe ak systolic velocity is 147.0 centimeters per second. Distal internal carotid artery peak systolic velocity is 124.0 centimeters per second Vertebral artery peak systolic velocity is 46.3 centimetersper second. Vertebral artery flow is antegrade ICA/CCA ratio is 1.69. Scattered areas of calcified and noncalcified plaque bilateral carotid arterial systems Peak systolic velocities, ICA/CCA ratios and antegrade vertebral artery flow as above. See above for details of the examination and below for internal carotid artery interpretation guidelines. 1. Elevated peak systolic velocity involving the proximal and mid right internal carotid artery falling within the estimated luminal stenosis range of 50-69%. 2. Elevated peak systolic velocity of the proximal and mid left internal carotid artery falling within the estimated luminal stenosis range of 50-69%. GOSINK CRITERIA Diameter PSV t EDV t PSV EDV Stenosis Site % cm/sec cm/sec ICA/CCA ICA/CCA 0-49 <124 <40 <2:1 --- --- 50- 69 125-225 40-100 >2:1 --- --- 70-89 225-325 >100 >4:1 >5:1 --- 90%+ >325 >100 >4:1 >9:1 Damped resistive CCA >95% May be May be Damped ---Damped resistive CCA decreased decreased resistive CCA Us Dup Lower Extremities Bilateral Venous Result Date: 11/17/2018 US DUP LOWER EXTREMITIES BILATERAL VENOUS : 11/16/2018 CLINICAL HISTORY: LEG SWELLING, PAIN, DVT SUSPECTED . COMPARISON: None available. Grayscale, compression, color and waveform Doppler analysis of both lower extremity deep venous systems was performed with augmentation. FINDINGS: There is no deepvenous thrombosis, abnormal masses, fluid collections or other findings of concern identified within either lower extremity. NO DVT IDENTIFIED IN EITHER LOWER EXTREMITY. Xr Spine Entire (2-3 Vws) Result Date: 11/13/2018 Patient : 1935 Age: 83 years Gender: Female Order Date: 11/13/2018 8:00 AM. Exam: XR SPINE ENTIRE (2-3 VIEWS) Number of Views: 6 Indication: Scoliosis survey, preoperative, mid and lower back pain Comparison: Lumbar spine radiographs 11/05/2018 Findings: Thoracic aortic vascular calcifications. There is approximately 13 degrees convex right spinal curvature centered about the L3 vertebral body. Visualized lungs are unremarkable. Surgical clips right upper abdomen. Nonobstructive bowel gas pattern. Normal sagittal alignment incompletely characterized. Mild to moderate degenerative disc disease L3-L5. Impression: 1. Approximately 13 degrees convex right spinal curvature centered about L3 vertebral body. 2. Mild to moderate degenerative disc disease L3-L5. 3. Vascular calcifications thoracic aorta Previous extensive, complex labs, notes and diagnostics reviewed and analyzed. ALLERGIES: Allergies as of 11/15/2018 - Review Complete 11/15/2018 Allergen Reaction Noted Prednisone Hives 09/01/2017 (please also verify by checking MAR) Complex Physical Medicine & Rehab Issues Assess & Plan: 1. Severe abnormality of gait and mobility and impaired self-care and ADL's secondary to progressive NTSCI Spinal stenosis s/p L234 fusion . Functional and medical status reassessed regarding patients ability to participate in therapies and patient found to be able to participate in acute intensive comprehensive inpatient rehabilitation program including PT/OT to improve balance, ambulation, ADLs, and to improve the P/AROM. Therapeutic modifications regarding activities in therapies, place, amount of time per day and intensity of therapy made daily. In bed therapies or bedside therapies prn. 2. Bowel and Bladder dysfunction: frequent toileting, ambulate to bathroom with assistance, check post void residuals. Check for C.difficile x1 if >2 loose stools in 24 hours, continue bowel &bladder program. Monitor bowel and bladder function. Lactinex 2 PO every AC. MOM prn, Brown Bomb prn, Glycerin suppository prn, enema prn. 3. Moderate generalized OA pain: reassess pain every shift and prior to and after each therapy session, give prn Tylenol and see Mar, modalities prn in therapy, Lidoderm, K-pad prn. 4. Skin healing and breakdown risk: continue pressure relief program. Daily skin exams and reports from nursing. 5. Fatigue due to nutritional and hydration deficiency: continue to monitor I&O s, calorie counts prn, dietary consult prn. 6. Acute episodic insomnia with situational adjustment disorder: prn Ambien, monitor for day time sedation. 7. Falls risk elevated: patient to use call light to get nursing assistance to get up, bed and chair alarm. 8. Elevated DVT risk: progressive activities in PT, continue prophylaxis SOFIYA hose, elevation and See MAR . 9. Complex discharge planning: Weekly team meeting every Monday to assess progress towards goals, discuss and address social, psychological and medical comorbidities and to address difficulties they may be having progressing in therapy. Patient and family education is in progress. The patient is tofollow-up with their family physician after discharge. Complex Active General Medical Issues that complicate care Assess & Plan: Patient Active Problem List Diagnosis Intractable back pain Lumbar spondylosis Impaired mobility Spinal stenosis of lumbosacral region 1. fever work up, will give one more dose of vanco given drainage from wound, follow up ID consult,check dopplers Blanca Holguin D.O., PM&R Attending [phone] [facility] Tasha * Jessica Irvin, OTR/L - 11/16/2018 4:14 PM EDT Occupational Therapy Facility/Department: [facility] Daily Treatment Note NAME: Hiram Madrid : 1935 Date of Service: 11/16/2018 Discharge Recommendations: Continue to assess pending progress OT Equipment Recommendations Other: Continue to assess Assessment Performance deficits / Impairments: Decreased functional mobility ;Decreased ADL status;Decreased strength;Decreased balance;Decreased endurance;Decreased high- level IADLs Assessment: Pt. is an 83 year old woman from home with spouse who presents to [facility] with the above deficits which impact her ability to perform ADLs and IADLs. Pt. would benefit from skilled OT to maximize independence and safety with ADL tasks. Prognosis: Good Decision Making: Medium Complexity History: Pt's medical history is moderately complex Exam: Pt. has 6 performance deficits Assistance / Modification: Pt. requires min A OT Education: OT Role REQUIRES OT FOLLOW UP: Yes Activity Tolerance Activity Tolerance: Patient Tolerated treatment well Safety Devices Safety Devices in place: Yes Type of devices: All fall risk precautions in place Patient Diagnosis(es): There were no encounter diagnoses. has a past medical history of Arthritis, CAD (coronary artery disease), Hyperlipidemia, Hypertension, diabetes mellitus, congenital hypothyroidism, congenital glaucoma, hepatic fibrosis, andpolycystic kidney syndrome (HCC), Other disorders of kidney and ureter in diseases classified elsewhere, and Thyroid disease. has a past surgical history that includes back surgery; Cholecystectomy; Appendectomy; tessa and bso (cervix removed) (Right); and lumbar fusion (N/A, 11/13/2018). Restrictions Restrictions/Precautions Restrictions/Precautions: Fall Risk Position Activity Restriction Spinal Precautions: No Bending, No Lifting, No Twisting Other position/activity restrictions: no brace - per nursing communication Subjective General Chart Reviewed: Yes Patient assessed for rehabilitation services?: Yes Family / Caregiver Present: Yes(Spouse and daughter) Referring Practitioner: Dr. Coker Diagnosis: Impaired mobility and gait secondary to NTSCI secondary to lumbar stenosis, radiculopathy, and spondylosis Pain Assessment Pain Assessment: 0-10 Pain Level: 5 Patient's Stated Pain Goal: 7 Pain Type: Surgical pain Pain Location: Back Pain Orientation: Left Pre Treatment Pain Screening Pain at present: 10 Scale Used: Numeric Score Intervention List: Nurse called to administer meds;Patient able to continue with treatment Vital Signs Patient Currently in Pain: Yes Objective The patient completed the [facility] Mental Status (UMS) Examination on this date, which is a useful screening tool for detecting mild cognitive impairment and signs of dementia. Range of impairments based on score are indicated in the chart below: High school education Scoring Less than High School Education 27-30 Normal 25-30 21-26 Mild Neurocognitive disorder 20-24 1-20 Dementia 1-19 Patient's level of education: Patient completed 9th grade. Patient scored 21 on this date, which indicates a mild neurocognitive disorder. Pt's cognition is WFL Results of UMS assessment will be shared in team meeting to assess need for further action. Upper Extremity Function UE Strengthing: Patient engages in right hand strengthening task for increased ease with self-care containers. Patient utilizes 6# resistive clothespin to balance marbles on top of small peg board with good overall tolerance. Plan Plan Times per week: 5-7x/week Times per day: Daily Plan weeks: 1 Current Treatment Recommendations: Strengthening, Balance Training, Functional Mobility Training, Endurance Training, Patient/Caregiver Education & Training, Equipment Evaluation, Education, & procurement, Neuromuscular Re-education, Self-Care / ADL, Home Management Training, Positioning, Cognitive/Perceptual Training, Safety Education & Training Goals Patient Goals Patient goals : To walk on my own, go home and do regular chores and things Therapy Time Individual Concurrent Group Co-treatment Time In 1335 Time Out 1400 Minutes 25 STIANO Lee/Lloyd * Lenny Corral MD - 11/16/2018 4:04 PM EDT Patient: Hiram Madrid Unit/Bed: R238/R238-01 Date of : 1935 Acct: [id number] Admitting Diagnosis: Impaired mobility [Z74.09] Spinal stenosis of lumbosacral region [M48.07] Admit Date: 11/15/2018 Hospital Day: 1 Current Medications: Scheduled Meds: [START ON 11/17/2018] enoxaparin 40 mg Subcutaneous Daily leoeijny-glyvzwjozm-ujpkgulbq Topical BID docusate sodium 100 mg Oral BID famotidine 20 mg Oral BID aspirin 81 mg Oral Daily gabapentin 100 mg Oral TID levothyroxine 88 mcg Oral Daily losartan 100 mg Oral Daily potassium chloride 20 mEq Oral BID pravastatin 80 mg Oral Daily polyethylene glycol 17 g Oral Daily cinnamon oil 1 drop Oral TID metoprolol tartrate 25 mg Oral BID piperacillin-tazobactam 3.375 g Intravenous Q6H guaiFENesin 600 mg Oral BID Continuous Infusions: PRN Meds:.oxyCODONE-acetaminophen, senna, albuterol . Recent Labs 11/15/18 1028 11/15/18 1637 11/16/18 0544 WBC 19.8* 20.8* 18.6* HGB 11.9* 10.9* 11.0* HCT 36.9* 33.3* 33.4* MCV 91.1 90.7 89.4 PLT 341 315 304 Recent Labs 11/14/18 0559 11/15/18 1028 NA 135 136 K 4.1 3.8 CL 100 98 CO2 25 27 BUN 6* 6* CREATININE 0.66 0.59 Recent Labs 11/15/18 1028 AST 28 ALT 12 BILITOT 0.4 ALKPHOS 71 No results for input(s): LIPASE, AMYLASE in the last 72 hours. Recent Labs 11/15/18 1028 PROT 6.5 Imaging Results: Xr Chest Standard (2 Vw) Result Date: 11/05/2018 EXAMINATION: XR LUMBAR SPINE (MIN 4 VIEWS), XR CHEST (2 VW) CLINICAL HISTORY: lbp . Low back pain without specific injury. Chronic shortness of breath. COMPARISONS: None available. FINDINGS: Frontal and lateral views of chest were obtained. The heart is not enlarged. Calcified aorta is not dilated.Mediastinum is not widened or shifted. There is no active disease in the lungs. The chest wall is intact and unremarkable. 6 views of the lumbar spine were obtained. There is mild dextroscoliosis centered at L2-3. Lumbar vertebral alignment is otherwise unremarkable. There is mild to moderate vertebral body margin spurring at all levels, perhaps greatest at L3-4. There is mild/moderate narrowing of intervertebral space at L4-5. There is wide laminectomy at L4-L5 and S1. There is moderate apophyseal joint arthrosis, greatest L4-5. The heavily calcified aorta is not dilated. CONCLUSION: NO ACTIVE CARDIOPULMONARY DISEASE. DEGENERATIVE DISEASE AND POSTOPERATIVE FINDINGS, WITHOUT ACUTE SUPERIMPOSED ABNORMALITY. Xr Lumbar Spine (2-3 Views) Result Date: 11/14/2018 Patient : 1935 Age: 83 years Gender: Female Order Date: 11/14/2018 11:00 AM. Exam: XR LUMBAR SPINE (2-3 VIEWS) Number of Views: 4 Indication: Postop Comparison: 11/13/2018. Findings: Mild degenerative changes bilateral hips. No acute fracture. Posterior spinal fixation L3-L5. Vascular calcifications abdominal aorta. Surgical danna. Moderate degenerative changes L5-S1. Impression: 1. Mild bilateral osteoarthritis of the hips. 2. Posterior spinal fixation L3-L5. 3. Moderate degenerative changes L5-S1. Xr Lumbar Spine (min 4 Views) Result Date: 11/05/2018 EXAMINATION: XR LUMBAR SPINE (MIN 4 VIEWS), XR CHEST (2 VW) CLINICAL HISTORY: lbp . Low back pain without specific injury. Chronic shortness of breath. COMPARISONS: None available. FINDINGS: Frontal and lateral views of chest were obtained. The heart is not enlarged. Calcified aorta is not dilated.Mediastinum is not widened or shifted. There is no active disease in the lungs. The chest wall is intact and unremarkable. 6 views of the lumbar spine were obtained. There is mild dextroscoliosis centered at L2-3. Lumbar vertebral alignment is otherwise unremarkable. There is mild to moderate vertebral body margin spurring at all levels, perhaps greatest at L3-4. There is mild/moderate narrowing of intervertebral space at L4-5. There is wide laminectomy at L4-L5 and S1. There is moderate apophyseal joint arthrosis, greatest L4-5. The heavily calcified aorta is not dilated. CONCLUSION: NO ACTIVE CARDIOPULMONARY DISEASE. DEGENERATIVE DISEASE AND POSTOPERATIVE FINDINGS, WITHOUT ACUTE SUPERIMPOSED ABNORMALITY. Mri Lumbar Spine W Wo Contrast Result Date: 11/05/2018 EXAMINATION: MRI LUMBAR SPINE W WO CONTRAST CLINICAL HISTORY: leg weakness hx surgery COMPARISONS: November 05, 2018 x-ray FINDINGS: Multisequence, multiplanar MRI of the lumbar spine was obtained, including imaging before and after intravenous administration of 15 mL ProHance. Examination is abnormal. There is large herniated disc fragment that appears to arisen from the L4-5 disc, left of midline and migrating in a cephalad direction into the left L4 lateral recess. In addition, there is evidence of a component of this disc herniation extending into the left L4 neural foramen, producing moderately severe left L4 foraminal stenosis. L4-5 disc is moderately narrowed. There is generalized disc bulging at L4-5. Right L4 foraminal stenosis is moderate. There is advanced apophyseal joint arthrosis at L4-5. Postoperative changes, with wide laminectomy at L4, L5-S1 is incidentally noted. Theoperative site is widely patent, without central spinal canal stenosis. There is moderate narrowingof the L3-4 intervertebral disc, with generalized disc bulging. In addition, there is superimposed L3-4 disc protrusion toward the left, entering the left L3 neural foramen, producing moderately severe left L3 foraminal stenosis. In addition, a combination of facet hypertrophy, thickening of ligamenta flava and disc bulging is producing moderately severe central spinal canal stenosis at L3-4. TheL2-3 disc is moderately narrowed and shows generalized disc bulging without disc herniation. Spinalcanal caliber at L2-3 is well-maintained. The L1-2 intervertebral level is unremarkable. Spinal canal at L1-L2 is normal. The L5-S1 disc shows mild generalized bulging. The operative site at L5-S1 iswidely patent. Contrast-enhanced images show abnormal enhancement of the coverings of the spinal canal at the operative site, without abnormal enhancement within the thecal sac. The granulation tissue at the laminectomy site shows pronounced increased enhancement. The herniated disc fragment withinthe left L4 lateral recess shows enhancement of the soft tissues around it, without enhancement of t he disc fragment itself. This does not have the appearance of a neurinoma or nerve sheath tumor. CONCLUSION: LARGE HERNIATED DISC FRAGMENT WITHIN THE LEFT L4 LATERAL RECESS HAVING ARISEN FROM THE L4-5 INTERVERTEBRAL DISC, RESULTING IN PRONOUNCED LEFT L4 LATERAL RECESS STENOSIS. IN ADDITION, THERE IS MODERATELY SEVERE LEFT L4 FORAMINAL STENOSIS. THERE IS MODERATELY SEVERE LEFT L3 FORAMINAL STENOSIS, WITH MODERATELY SEVERE L3-4 CENTRAL SPINAL CANAL STENOSIS. THE OPERATIVE SITE AT L4, L5 AND S1 ISWIDELY PATENT. THERE ARE NO SIGNS OF UNDERLYING PATHOLOGY OR RECENT INJURY. Xr Chest Portable Result Date: 11/16/2018 EXAMINATION: XR CHEST PORTABLE CLINICAL HISTORY: fever . History of back surgery. COMPARISONS: Noneavailable. FINDINGS: Single AP portable view the chest obtained on November 15, 2018 at 2124 hours. The heart is not enlarged. Mediastinum is not widened. Calcified aorta is not dilated. Lungs are clear. The chest wall is unremarkable. CONCLUSION: NO ACUTE PROCESS Fluoro For Surgical Procedures Result Date: 11/13/2018 Patient : 1935 Age: 83 years Gender: Female Order Date: 11/13/2018 10:15 AM. Exam: FLUORO FOR SURGICAL PROCEDURES Number of Views: 12 Indication: Pain Comparison: MRI lumbar spine 11/05/2018. Findings: Surgical instruments posterior to the L3 L5 motion segment level. One instrument posterior to the L4-L5 intervertebral disc. Fluoroscopic time of 47.0 seconds. Impression: Surgical instrumentation location as above, fluoroscopic guidance, fluoroscopic time 47.0 seconds. Us Carotid Artery Bilateral Result Date: 11/16/2018 Patient : 1935 Age: 83 years Gender: Female Order Date: 11/15/2018 6:15 PM EXAM: US CAROTID ARTERY BILATERAL NUMBER OF IMAGES: 68 INDICATION: bruits. sycnope. COMPARISON: None FINDINGS: Right side: Proximal common carotid artery peak systolic velocity is 106.0 centimeters per second Mid, common carotid artery peak systolic velocity is 111.0 centimeters per second. Distal common carotid artery peak systolic velocity is 91.0 centimeters per second External carotid artery peaksystolic velocity is 603.0 centimeters per second. Proximal internal carotid artery peak systolic velocity is 147.0 centimeters per second Mid internal carotid artery peak systolic velocity is 125.0 centimeters per second. Distal internal carotid artery peak systolic velocity is 73.7 centimeters per second Vertebral artery peak systolic velocity is 97.2 centimeters per second. Vertebral artery flow is antegrade ICA/CCA ratio is 1.32 Left side: Proximal common carotid artery peak systolic velocity is 123.0 centimeters per second Mid, common carotid artery peak systolic velocity is 120.0 centimeters per second. Distal common carotid artery peak systolic velocity is 118.0 centimeters per second. External carotid artery peak systolic velocity is 507.0 centimeters per second. Proximal internalcarotid artery peak systolic velocity is 204.0 centimeters per second Mid internal carotid artery pe ak systolic velocity is 147.0 centimeters per second. Distal internal carotid artery peak systolic velocity is 124.0 centimeters per second Vertebral artery peak systolic velocity is 46.3 centimetersper second. Vertebral artery flow is antegrade ICA/CCA ratio is 1.69. Scattered areas of calcified and noncalcified plaque bilateral carotid arterial systems Peak systolic velocities, ICA/CCA ratios and antegrade vertebral artery flow as above. See above for details of the examination and below for internal carotid artery interpretation guidelines. 1. Elevated peak systolic velocity involving the proximal and mid right internal carotid artery falling within the estimated luminal stenosis range of 50-69%. 2. Elevated peak systolic velocity of the proximal and mid left internal carotid artery falling within the estimated luminal stenosis range of 50-69%. GOSINK CRITERIA Diameter PSV t EDV t PSV EDV Stenosis Site % cm/sec cm/sec ICA/CCA ICA/CCA 0-49 <124 <40 <2:1 --- --- 50- 69 125-225 40-100 >2:1 --- --- 70-89 225-325 >100 >4:1 >5:1 --- 90%+ >325 >100 >4:1 >9:1 Damped resistive CCA >95% May be May be Damped ---Damped resistive CCA decreased decreased resistive CCA Xr Spine Entire (2-3 Vws) Result Date: 11/13/2018 Patient : 1935 Age: 83 years Gender: Female Order Date: 11/13/2018 8:00 AM. Exam: XR SPINE ENTIRE (2-3 VIEWS) Number of Views: 6 Indication: Scoliosis survey, preoperative, mid and lower back pain Comparison: Lumbar spine radiographs 11/05/2018 Findings: Thoracic aortic vascular calcifications. There is approximately 13 degrees convex right spinal curvature centered about the L3 vertebral body. Visualized lungs are unremarkable. Surgical clips right upper abdomen. Nonobstructive bowel gas pattern. Normal sagittal alignment incompletely characterized. Mild to moderate degenerative disc disease L3-L5. Impression: 1. Approximately 13 degrees convex right spinal curvature centered about L3 vertebral body. 2. Mild to moderate degenerative disc disease L3-L5. 3. Vascular calcifications thoracic aorta BP (!) 105/52 Pulse 92 Temp 98 F (36.7 C) Resp 15 Ht 5' 1 (1.549 m) Wt 145 lb 4.5 oz (65.9 kg) SpO2 98% BMI 27.45 kg/m Events last night noted. Afebrile vitals are stable. WBC decreased to 18,000. Incision is clean and dry. Neurologically stable. Chest x-ray results noted. Impression status post lumbar fusion instrumentation with a recent leukocytosis. May result from the stress related leukocytosis. But agree with his I changed of treating with antibiotics for now and further work-up for infectious etiology. We will continue to follow with you regarding this patient. Recommend Lovenox. Dressing changed. Bacitracin ointment. * Dulce Stevens, DO - 11/16/2018 3:40 PM EDT CC: Syncope Patient is a 83 y.o. female who presents with a chief complaint of syncope. Patient is followed on a regular basis by Dr. Calista Aceves MD. S/p back surgery. Experienced a syncopal episode one day post op. States she got up form bed and walked over and sat in a chair. States she felt LH/foggy type of feeling and experience a brief syncopal episode. No seizure like activity No CP or SOB. Noted to have + orthostatics. Denies hx of [place], CHF or arrhythmia. Follows with a metallurgy teacher from [place] for carotid artery disease and cardiac murmur. + hx of HTN and HLP. No hx of LHC. Noted to have sinus tach on tele, no pauses. + fever and elevated WBC now. 11-16-18: doing better today. No CP or SOB. No LH/dizz. CUS with 50-69% b/l stenosis. Echo is pending. Denies any F/C. HD stable. TELE: NSR now, 96bpm. Past Medical History Past Medical History: Diagnosis Date Arthritis CAD (coronary artery disease) Hyperlipidemia Hypertension diabetes mellitus, congenital hypothyroidism, congenital glaucoma, hepatic fibrosis, and polycystic kidney syndrome (HCC) Other disorders of kidney and ureter in diseases classified elsewhere Thyroid disease Patient Active Problem List Diagnosis Intractable back pain Lumbar spondylosis Impaired mobility Past Surgical History Past Surgical History: Procedure Laterality Date APPENDECTOMY BACK SURGERY CHOLECYSTECTOMY LUMBAR FUSION N/A 11/13/2018 PLIF L 3-4-5 DECOMPRESSION L3, L4 performed by Lenny Corral MD at [facility] [place] OR [facility] Right Social History Social History Socioeconomic History Marital status: Spouse name: None Number of children: None Years of education: None Highest education level: None Occupational History None Social Needs Financial resource strain: None Food insecurity: Worry: None Inability: None Transportation needs: Medical: None Non-medical: None Tobacco Use Smoking status: Never Smoker Smokeless tobacco: Never Used Substance and Sexual Activity Alcohol use: Not Currently Drug use: Never Sexual activity: None Lifestyle Physical activity: Days per week: None Minutes per session: None Stress: None Relationships Social connections: Talks on phone: None Gets together: None Attends judaism service: None Active member of club or organization: None Attends meetings of clubs or organizations: None Relationship status: None Intimate partner violence: Fear of current or ex partner: None Emotionally abused: None Physically abused: None Forced sexual activity: None Other Topics Concern None Social History Narrative None Family History History reviewed. No pertinent family history. Current Facility-Administered Medications Current Facility-Administered Medications Medication Dose Route Frequency Provider Last Rate Last Dose docusate sodium (COLACE) capsule 100 mg 100 mg Oral BID Shyla Renato Vizcaino APRN - MK famotidine (PEPCID) tablet 20 mg 20 mg Oral BID EDY Tom CNP [START ON 11/16/2018] amLODIPine (NORVASC) tablet 10 mg 10 mg Oral Daily Shylapresley Vizcaino APRN - CERTIFIED ART THERAPIST [START ON 11/16/2018] aspirin EC tablet 81 mg 81 mg Oral Daily Shyla Vizcaino APRN - MK cephALEXin (KEFLEX) capsule 500 mg 500 mg Oral 3 times per day Shyla Vizcaino APRN - MK gabapentin (NEURONTIN) capsule 100 mg 100 mg Oral TID Shylapresley Vizcaino APRN - CERTIFIED ART THERAPIST [START ON 11/16/2018] levothyroxine (SYNTHROID) tablet 88 mcg 88 mcg Oral Daily Shyla Renato Vizcaino APRN- MK [START ON 11/16/2018] losartan (COZAAR) tablet 100 mg 100 mg Oral Daily Shyla Renato Vizcaino FACULTY RESEARCH PHYSICIAN - CERTIFIED ART THERAPIST oxyCODONE-acetaminophen (PERCOCET) 5-325 MG per tablet 1 tablet 1 tablet Oral Q4H PRN Shyla Vizcaino APRN - MK potassium chloride (KLOR-CON) packet 20 mEq 20 mEq Oral BID Shyla T EDY Vizcaino - CERTIFIED ART THERAPIST pravastatin (PRAVACHOL) tablet 80 mg 80 mg Oral Daily Shyla VizcainoEDY - CERTIFIED ART THERAPIST polyethylene glycol (GLYCOLAX) packet 17 g 17 g Oral Daily Mary Santana MD ALLERGIES: Prednisone Review of Systems Constitutional: Negative. Negative for chills and fever. HENT: Negative. Eyes: Negative. Respiratory: Negative for shortness of breath and wheezing. Cardiovascular: Negative for chest pain, palpitations and leg swelling. Gastrointestinal: Negative. Negative for abdominal pain, nausea and vomiting. Endocrine: Negative. Genitourinary: Negative. Musculoskeletal: Negative. Skin: Negative. Negative for rash. Allergic/Immunologic: Negative. Neurological: Positive for syncope. Negative for dizziness, weakness and headaches. Hematological: Negative. Psychiatric/Behavioral: Negative. VITALS: Blood pressure (!) 151/68, pulse 107, temperature 100.9 F (38.3 C), temperature source Oral, resp. rate 18, height 5' 1 (1.549 m), weight 146 lb 11.2 oz (66.5 kg), SpO2 94 %. Body mass index is 27.72 kg/m . Physical Exam Constitutional: She is oriented to person, place, and time. She appears well- developed and well-nourished. HENT: Head: Normocephalic and atraumatic. Eyes: Pupils are equal, round, and reactive to light. Neck: Normal range of motion. Neck supple. No JVD present. No tracheal deviation present. No thyromegaly present. + b/l carotid bruits vs radiating murmur. Cardiovascular: Normal rate, regular rhythm and intact distal pulses. PMI is not displaced. Exam reveals no gallop, no S3, no distant heart sounds and no friction rub. Murmur heard. Pulmonary/Chest: No respiratory distress. She has no wheezes. She has no rales. She exhibits no tenderness. Abdominal: Soft. Bowel sounds are normal. She exhibits no distension and no mass. There is no tenderness. There is no rebound and no guarding. Musculoskeletal: She exhibits no edema. Neurological: She is alert and oriented to person, place, and time. No cranial nerve deficit. Skin: Skin is warm and dry. No rash noted. She is not diaphoretic. No erythema. No pallor. Psychiatric: She has a normal mood and affect. Her behavior is normal. Judgment and thought contentnormal. LABS: Recent Results Recent Results (from the past 24 hour(s)) CBC Collection Time: 11/15/18 10:28 AM Result Value Ref Range WBC 19.8 (H) 4.8 - 10.8 K/uL RBC 4.05 (L) 4.20 - 5.40 M/uL Hemoglobin 11.9 (L) 12.0 - 16.0 g/dL Hematocrit 36.9 (L) 37.0 - 47.0 % MCV 91.1 82.0 - 100.0 fL MCH 29.4 27.0 - 31.3 pg MCHC 32.3 (L) 33.0 - 37.0 % RDW 14.5 11.5 - 14.5 % Platelets 341 130 - 400 K/uL Comprehensive Metabolic Panel w/ Reflex to MG Collection Time: 11/15/18 10:28 AM Result Value Ref Range Sodium 136 135 - 144 mEq/L Potassium reflex Magnesium 3.8 3.4 - 4.9 mEq/L Chloride 98 95 - 107 mEq/L CO2 27 20 - 31 mEq/L Anion Gap 11 9 - 15 mEq/L Glucose 123 (H) 70 - 99 mg/dL BUN 6 (L) 8 - 23 mg/dL CREATININE 0.59 0.50 - 0.90 mg/dL GFR Non- >60.0 >60 GFR >60.0 >60 Calcium 9.1 8.5 - 9.9 mg/dL Total Protein 6.5 6.3 - 8.0 g/dL Alb 3.3 (L) 3.5 - 4.6 g/dL Total Bilirubin 0.4 0.2 - 0.7 mg/dL Alkaline Phosphatase 71 40 - 130 U/L ALT 12 0 - 33 U/L AST 28 0 - 35 U/L Globulin 3.2 2.3 - 3.5 g/dL CBC Auto Differential Collection Time: 11/15/18 4:37 PM Result Value Ref Range WBC 20.8 (H) 4.8 - 10.8 K/uL RBC 3.67 (L) 4.20 - 5.40 M/uL Hemoglobin 10.9 (L) 12.0 - 16.0 g/dL Hematocrit 33.3 (L) 37.0 - 47.0 % MCV 90.7 82.0 - 100.0 fL MCH 29.8 27.0 - 31.3 pg MCHC 32.9 (L) 33.0 - 37.0 % RDW 14.6 (H) 11.5 - 14.5 % Platelets 315 130 - 400 K/uL PLATELET SLIDE REVIEW Normal Neutrophils % 79.0 % Lymphocytes % 17.0 % Monocytes % 7.7 % Eosinophils % 0.9 % Basophils % 0.6 % Neutrophils Absolute 17.3 (H) 1.4 - 6.5 K/uL Lymphocytes Absolute 3.5 1.0 - 4.8 K/uL Monocytes Absolute 0.0 (L) 0.2 - 0.8 K/uL Eosinophils Absolute 0.0 0.0 - 0.7 K/uL Basophils Absolute 0.0 0.0 - 0.2 K/uL Bands Relative 4 (L) 5 - 11 % Anisocytosis 1+ Microcytes 1+ Troponin: No results found for: TROPONINI EKG: normal sinus rhythm, RBBB ASSESSMENT: Syncope- Likely vasovagal/orthostatic. Rule out arrhythmia, rule out valvular. Hx of HTN HLD Hx of carotid artery disease Cardiac murmur- likely Fever/elevated WBC- ? Infection vs reactive Anemia Sinus tach- resolved. PLAN: 1. As always, aggressive risk factor modification is strongly recommended. We should adhere to the JNC VIII guidelines for HTN management and the NCEPATP III guidelines for LDL-C management. 2. Check 2D Echo for LV function, PA pressures, wall motion abnormalities and any significant valvular disease. 3. low dose lopressor 4. Cont with ASA, statin, Losartan. 5. Oral fluid hydration 6. Monitor on tele 7. GI/DVT proph * Mikayla Lindsey PTA - 11/16/2018 2:04 PM EDT Physical Therapy Rehab Treatment Note Facility/Department: [facility] [place] [facility] Room: [place] [address] NAME: Hiram Madrid : 1935 (83 y.o.) CODE STATUS: Full Code Date of Service: 11/16/2018 Chart Reviewed: Yes Family / Caregiver Present: No Restrictions: Restrictions/Precautions: Fall Risk Position Activity Restriction Spinal Precautions: No Bending, No Lifting, No Twisting Other position/activity restrictions: no brace - per nursing communication SUBJECTIVE: Response To Previous Treatment: Patient with no complaints from previous session. Pain Screening Patient Currently in Pain: Yes Pre Treatment Pain Screening Pain at present: 8 Scale Used: Numeric Score Intervention List: Patient able to continue with treatment;Patient declined any intervention Comments / Details: I took a percocet a half an hour ago. Post Treatment Pain Screening: Pain Assessment Pain Level: 4 Pain Type: Surgical pain Pain Location: Back Pain Orientation: Lower Pain Descriptors: Aching Pain Frequency: Continuous Clinical Progression: Gradually improving OBJECTIVE: Overall Orientation Status: Within Functional Limits Follows Commands: Within Functional Limits Transfers Sit to Stand: Stand by assistance Stand to sit: Stand by assistance Ambulation Ambulation?: Yes Ambulation 1 Surface: carpet Device: Rollator Other Apparatus: (Room Air this PM) Assistance: Stand by assistance Distance: 80' Stairs/Curb Stairs?: No Exercises Hip Flexion: x 20 with focus on core Hip Abduction: Side kicks x 20 Knee Long Arc Quad: x 20 Ankle Pumps: x 20 Neurodevelopmental Techniques: MRE'S: ABD/ADD: x 10 ASSESSMENT/COMMENTS: Assessment: Pt with good activity tolerance in PM. PIZANO NT secondary to increased pain. Will try totest at next convenient time. PT Education: Precautions Patient Education: spinal precautions as pt unable to state any of them. PLAN OF CARE/Safety: Plan Comment: Cont per POC. Safety Devices Type of devices: All fall risk precautions in place;Gait belt;Chair alarm in place Therapy Time: Individual Time In 1400 Time Out 1430 Minutes 30 Minutes:30 Transfer/Bed mobility trainin Gait trainin Neuro re education: 0 Therapeutic ex: 23 Mikayla Lindsey, ASSISTANT SALES DIRECTOR, 11/16/18 at 3:57 PM * Rhiannon Blank, LEAD PRESSER - 11/16/2018 11:21 AM EDT Speech Language Pathology NAME: Hiram Madrid ROOM: [facility]/R238-01 : 1935 DATE: 11/16/2018 Speech Therapy attempted to see Hiram Madrid on this date for a/an: Clinical Bedside Swallow Evaluation and Speech Language Evaluation Pt was unable to be seen due to: Patient refused Pt politely reported she is feeling more like herself today and thinks any cognitive decline is related to pain medication. Pt also denied any change with her swallow. She requested not to participate in the cognitive assessment and bedside swallow evaluation, and multiple family members at bedside verbalized agreement that pt exhibits no change in cognitive function at this time. * Jessica Irvin, URIR/Lloyd - 11/16/2018 10:58 AM EDT Occupational Therapy Occupational Therapy Initial Assessment Date: 11/16/2018 Patient Name: Hiram Madrid : 1935 Date of Service: 11/16/2018 Discharge Recommendations: Continue to assess pending progress OT Equipment Recommendations Other: Continue to assess Assessment Performance deficits / Impairments: Decreased functional mobility ;Decreased ADL status;Decreased strength;Decreased balance;Decreased endurance;Decreased high- level IADLs Assessment: Pt. is an 83 year old woman from home with spouse who presents to [facility] with the above deficits which impact her ability to perform ADLs and IADLs. Pt. would benefit from skilled OT to maximize independence and safety with ADL tasks. Prognosis: Good Decision Making: Medium Complexity History: Pt's medical history is moderately complex Exam: Pt. has 6 performance deficits Assistance / Modification: Pt. requires min A OT Education: OT Role REQUIRES OT FOLLOW UP: Yes Activity Tolerance Activity Tolerance: Patient Tolerated treatment well Safety Devices Safety Devices in place: Yes Type of devices: All fall risk precautions in place Patient Diagnosis(es): There were no encounter diagnoses. Rehab Diagnosis: Impaired mobility and gait secondary to NTSCI secondary to lumbar stenosis, radiculopathy, and spondylosis has a past medical history of Arthritis, CAD (coronary artery disease), Hyperlipidemia, Hypertension, diabetes mellitus, congenital hypothyroidism, congenital glaucoma, hepatic fibrosis, andpolycystic kidney syndrome (HCC), Other disorders of kidney and ureter in diseases classified elsewhere, and Thyroid disease. has a past surgical history that includes back surgery; Cholecystectomy; Appendectomy; tessa and bso (cervix removed) (Right); and lumbar fusion (N/A, 11/13/2018). Restrictions Restrictions/Precautions Restrictions/Precautions: Fall Risk Position Activity Restriction Spinal Precautions: No Bending, No Lifting, No Twisting Other position/activity restrictions: no brace - per nursing communication Subjective General Chart Reviewed: Yes Patient assessed for rehabilitation services?: Yes Family / Caregiver Present: Yes(Spouse and daughter) Referring Practitioner: Dr. Coker Diagnosis: Impaired mobility and gait secondary to NTSCI secondary to lumbar stenosis, radiculopathy, and spondylosis Patient Currently in Pain: Yes Pain Assessment Pain Assessment: 0-10 Pain Level: 5 Patient's Stated Pain Goal: 5 Pain Type: Chronic pain Pain Location: Leg Pain Orientation: Left Pain Descriptors: Radiating Pre Treatment Pain Screening Pain at present: 5 Scale Used: Numeric Score Intervention List: Patient able to continue with treatment Vital Signs Level of Consciousness: Alert Patient Currently in Pain: Yes Social/Functional History Social/Functional History Lives With: Spouse Type of Home: House Home Layout: One level Home Access: Stairs to enter with rails Entrance Stairs - Number of Steps: 2 Entrance Stairs - Rails: Both Bathroom Shower/Tub: Walk-in shower Bathroom Equipment: Shower chair, Grab bars in shower, Hand-held shower Home Equipment: 4 wheeled walker, Cane Receives Help From: Family ADL Assistance: Independent Homemaking Assistance: Independent Homemaking Responsibilities: Yes Meal Prep Responsibility: Primary Laundry Responsibility: Primary Cleaning Responsibility: Primary Bill Paying/Finance Responsibility: Primary Shopping Responsibility: Primary Ambulation Assistance: Independent(has been using cane the past week or 2 due to increasing pain) Transfer Assistance: Independent Active Long Term: Yes Mode of Transportation: Car 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 Leisure & Hobbies: Cooking, reading, needlepoint Additional Comments: 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, has been relying more on dtr and spouse due toworsening weakness past few weeks Objective Vision: Impaired Hearing: Exceptions to WFL Hearing Exceptions: Hard of hearing/hearing concerns;Right hearing aid(Little to no hearing in leftear) Orientation Overall Orientation Status: Within Functional Limits Observation/Palpation Observation: Patient with bandage in place to back Balance Sitting Balance: Supervision Standing Balance: Contact guard assistance Transfers Bed mobility Supine to Sit: Minimal assistance Sit to Supine: Unable to assess(Patient sitting up in chair) Transfers Sit to stand: Contact guard assistance Stand to sit: Contact guard assistance Toilet Transfers Toilet - Technique: Stand pivot Equipment Used: Grab bars Toilet Transfer: Contact guard assistance Tub Transfers Tub Transfers: Not tested Shower Transfers Shower Transfers: Not tested Shower Transfers Comments: Patient performs sponge bath at sink ADL Feeding: Independent Grooming: Setup UE Bathing: Setup LE Bathing: Minimal assistance UE Dressing: Setup LE Dressing: Minimal assistance Toileting: Contact guard assistance Tone RUE RUE Tone: Normotonic Tone LUE LUE Tone: Normotonic Coordination Movements Are Fluid And Coordinated: Yes Cognition Overall Cognitive Status: WFL Cognition Comment: Comprehension: 7, Expression: 7, Social Interaction: 7, Problem-Solvin, Memory: 6 Perception Overall Perceptual Status: WFL Sensation Overall Sensation Status: WFL ROM LUE AROM (degrees) LUE AROM : WFL Left Hand AROM (degrees) Left Hand AROM: WFL RUE AROM (degrees) RUE AROM : WFL Right Hand AROM (degrees) Right Hand AROM: WFL Strength LUE Strength LUE Strength Comment: Gross Assessment: 3+/5 RUE Strength RUE Strength Comment: Gross Assessment: 3+/5 Hand Dominance Hand Dominance: Right Plan Plan Times per week: 5-7x/week Times per day: Daily Plan weeks: 1 Current Treatment Recommendations: Strengthening, Balance Training, Functional Mobility Training, Endurance Training, Patient/Caregiver Education & Training, Equipment Evaluation, Education, & procurement, Neuromuscular Re-education, Self-Care / ADL, Home Management Training, Positioning, Cognitive/Perceptual Training, Safety Education & Training Goals Patient Goals Patient goals : To walk on my own, go home and do regular chores and things [x] Patient will complete self care as followed using the recommended adaptive equipment and/or adaptive techniques as instructed: Feeding: Independent Grooming: Independent Bathing: Modified Independent UE Dressing: Independent LE Dressing: Modified Independent Toileting: Independent Toilet Transfers: Modified Independent Tub Transfers: Modified Independent [x] Patient will sequence self-care routine with no verbal/tactile cues for safety. [x] Patient will improve static and dynamic standing balance to complete ADL activities as projected. [x] Patient will improve functional endurance to tolerate/complete 60 minutes of ADLs. [x] Patient will improve bilateral UE strength and endurance to 4/5 in order to participate in self-care activities as projected. [x] Patient will perform kitchen mobility at device level without episodes of LOB and good safety awareness [x] Patient will perform basic room mobility at Modified Independent level. [x] Patient will access appropriate D/C site with as few architectural barriers as possible. [x] Patient and/or caregiver will demonstrate understanding of recommended HEP for strength and ADL/IADL skills. [x] Patient's cognition will improve to safely perform ADLs: Comprehension: Independent Expression: Independent Social Interaction: Independent Problem Solving: Independent Memory: Independent Therapy Time Individual Concurrent Group Co-treatment Time In 08 Time Out 0934 Minutes 66 Comment: Transfer care to supervising OTR/L Jessica Irvin OTR/Lloyd * Jena Vega, ASSISTANT SALES DIRECTOR - 11/16/2018 10:35 AM EDT Physical Therapy Rehab Treatment Note Facility/Department: [facility] Room: R238/R238-01 NAME: Hiram Madrid : 1935 (83 y.o.) CODE STATUS: Full Code Date of Service: 11/16/2018 Chart Reviewed: Yes Family / Caregiver Present: Yes Restrictions: Restrictions/Precautions: Fall Risk SUBJECTIVE: Pain Screening Patient Currently in Pain: Yes Pre Treatment Pain Screening Pain at present: 4 Intervention List: Patient able to continue with treatment;Patient declined any intervention Post Treatment Pain Screening: Pain Assessment Pain Level: 4 Pain Location: Leg Pain Orientation: Left Pain Descriptors: Radiating Pt repositioned in WC OBJECTIVE: Initiated treatment per POC focusing on increasing endurance, balance, and LE strength. Transfers Sit to Stand: Stand by assistance Stand to sit: Stand by assistance Exercises Neurodevelopmental Techniques: Gait drills: Fwd/Retro/Lat in parallel bars with B UEs to increase endurance and challange balance. Other exercises Other exercises 1: Sink ex x10 ea except for hip ext ASSESSMENT/COMMENTS: Body structures, Functions, Activity limitations: Decreased functional mobility ;Decreased endurance;Decreased balance;Increased pain;Decreased strength PLAN OF CARE/Safety: Plan Comment: Cont per POC. Therapy Time: Individual Time In 1030 Time Out 1100 Minutes 30 Minutes: Transfer/Bed mobility trainin Gait trainin Neuro re education:15 Therapeutic ex:15 Jena Vega PTA, 11/16/18 at 11:10 AM * Jessenia Gordon, WELDER PLASTIC - 11/16/2018 9:35 AM EDT [facility] Rehabilitation RECREATIONAL THERAPY Initial Evaluation Date: 11/16/2018 Patient Name: Hiram Madrid Date of : 1935 (83 y.o.) Gender: female Diagnosis: Impaired mobility and gait secondary to NTSCI secondary to lumbar stenosis, radiculopathy, and spondylosis Referring Practitioner: Dr. 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 Prior to admission, patient engaged in leisure/recreation on a regular basis: sometimes Patient reports he/she is comfortable in: comfortable with both scenarios Patient reports pain is a chronic issue OBJECTIVE: Pt is up in wheelchair. Oxygen Yes Ability to provide information regarding leisure and recreation interests: No issues Leisure Interest Survey: Solitaire Gardening/yard work, Reading, Word searches/Crosswords, Likes music, Likes animals and Indoor/outdoor plants Sports/Physical Activity Not as much physical activity in the last six months. Community Shopping and Dining out Social Activities Sight-seeing/Car rides and Family/friend visits Details regarding Leisure Interests: Pt described how she and drive in their golf cart on their [address] acres of property enjoying the outdoors. Pt enjoys her flower bed. Past leisure interests: Walking, orthodox, had pets Future leisure interests: Emotional Observed/noted: Cooperative and Pleasant Affect: Appropriate Comments: Today s Session included: Increased Socialization, Provided active listening and Benefits of the patient's leisure and recreation pursuits being utilized as stress relievers Recommendations to utilize Recreation Therapy services, its supported services and groups include: [facility], Pet Therapy, Leisure Education, Individual Music Therapy session, Independent leisure/recreational opportunities and activities for in room use, Coping skills and Stress management tools Comment(s): ASSESSMENT Patient tolerated today s session: good Prior Activity Level: Moderately active Leisure Awareness: fair Lack of interest in the following: N/A Barriers to Leisure Participation: Mobility, Pain, General Weakness and Endurance Comment(s): Plan Prior to discharge from rehab program: COMPLETE Patient will express interest in participating in the Pet Therapy program during their hospitalization. COMPLETE Patient will indicate current and prior leisure/recreational interests and state those they will follow through with post discharge. COMPLETE Patient will be provided with an independent leisure activity/coping skills tool for in room use. COMPLETE Patient will be provided with a large print cognitive/orientation/puzzle handout 5x/week. COMPLETE Patient will be educated on various alternative pain management techniques which can include both techniques done independently and/or in group programs. COMPLETE Patient will express interest in participating in Music Therapy during his hospitalization. COMPLETE Patient will identify the recreation therapy supported groups he has interest in attending. Patient provided with the following accessible and independently used recreation/leisure resources when in hospital room: 5 Days week large print orientation/puzzle activity handout and Word Searches, crossword puzzles EDUCATION Was new education provided: Yes Learner: Patient, family Education provided: [facility] Method of Education: Discussion Evaluation of Patient s Response to Education: Verbalized Understanding FIMS Comprehension: 7 - Patient understands complex ideas (math/planning) Expression: 7 - Patient expresses complex ideas/needs Social Interaction: 7 - Patient has appropriate behavior/relations 100% of the time Problem Solvin - Independent with device (e.g. notes, schedules) Memory: 6 - Patient requires device to recall (e.g. memory book) Electronically signed by: FADUMO StoverS Date: 11/16/2018 * Lakisha Trevino, PT - 11/16/2018 8:20 AM EDT Facility/Department: [facility] Rehabilitation Initial Assessment: Physical Therapy [facility] NAME: Hiram Madrid : 1935 Date of Service: 11/16/2018 Rehab Diagnosis(es):impaired mobility and gait secondary to lumbar stenosis, radiculopathy and spondylosis Patient Active Problem List Diagnosis Date Noted Impaired mobility 11/15/2018 Spinal stenosis of lumbosacral region 11/15/2018 Lumbar spondylosis 11/13/2018 Intractable back pain 11/04/2018 Past Medical History: Diagnosis Date Arthritis CAD (coronary artery disease) Hyperlipidemia Hypertension diabetes mellitus, congenital hypothyroidism, congenital glaucoma, hepatic fibrosis, and polycystic kidney syndrome (HCC) Other disorders of kidney and ureter in diseases classified elsewhere Thyroid disease Past Surgical History: Procedure Laterality Date APPENDECTOMY BACK SURGERY CHOLECYSTECTOMY LUMBAR FUSION N/A 11/13/2018 PLIF L 3-4-5 DECOMPRESSION L3, L4 performed by Lenny Corral MD at [facility] Right Chart Reviewed: Yes Patient assessed for rehabilitation services?: Yes Family / Caregiver Present: Yes(spouse and daughter) Restrictions: Restrictions/Precautions: Fall Risk Position Activity Restriction Spinal Precautions: No Bending, No Lifting, No Twisting Other position/activity restrictions: no brace - per nursing communication SUBJECTIVE: Pre Treatment Pain Screening Pain at present: 4 Intervention List: Patient able to continue with treatment;Patient declined any intervention Comments / Details: left leg and back discomfort Post Treatment Pain Screening: Pain Assessment Pain Level: 4 Pain Location: Leg Pain Orientation: Left Prior Level of Function: Social/Functional History Lives With: Spouse Type of Home: House Home Layout: One level Home Access: Stairs to enter with rails Entrance Stairs - Number of Steps: 2 Bathroom Shower/Tub: Walk-in shower Bathroom Equipment: Shower chair, Grab bars in shower Home Equipment: 4 wheeled walker, Cane ADL Assistance: Independent Homemaking Assistance: Independent Ambulation Assistance: Independent(has been using cane the past week or 2 due to increasing pain) Transfer Assistance: Independent Active Long Term: Yes Additional Comments: 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, has been relying more on dtr and spouse due toworsening weakness past few weeks OBJECTIVE: Vision/Hearing: Vision: Impaired Vision Exceptions: Wears glasses for reading Hearing: Exceptions to WFL Hearing Exceptions: Hard of hearing/hearing concerns;Right hearing aid Cognition: Overall Orientation Status: Within Functional Limits Follows Commands: Within Functional Limits ROM: RLE AROM: WFL LLE AROM : WFL Strength: Strength RLE Comment: hip strength grossly 3+/5, knee extension 3+/5, knee flexion 4-/5 and ankle PF/DF 4-/5 Strength LLE Comment: hip strength grossly 3+/5 with knee and ankle strenth grossly 4-/5 Neuro: Sensation Overall Sensation Status: WFL Balance Sitting - Static: Good Sitting - Dynamic: Fair;+ Standing - Static: Fair;-(pt requires min assist to maintain standing without UE support for 60 sec) Standing - Dynamic: Poor;+(pt requires BUE support for all movements) Comments: gait without device not safe to test Bed mobility Rolling to Left: Minimal assistance Rolling to Right: Minimal assistance Supine to Sit: Minimal assistance Sit to Supine: Minimal assistance Scooting: Minimal assistance Comment: bed flat with no rails - cues for technique and physical assistance required Transfers Sit to Stand: Minimal Assistance;Stand by assistance Stand to sit: Minimal Assistance;Stand by assistance Bed to Chair: Minimal assistance Car Transfer: Unable to assess Comment: varied throughout the session Ambulation Ambulation?: Yes Ambulation 1 Surface: level tile Device: Rollator Other Apparatus: O2 Assistance: Contact guard assistance;Minimal assistance Quality of Gait: pt with narrow ANSHUL and severely shortened steps, flexed knees, slow raissa, mild offloading onto UEs Distance: 50 feet Comments: no knee buckling noted; SOB following Stairs/Curb Stairs?: No(safety concerns) Wheelchair Activities Propulsion: No(pt to be ambulatory) Activity Tolerance Activity Tolerance: Patient Tolerated treatment well Car transfers: Not tested Walk 10 ft: Minimal Assist Walk 50 ft with 2 turns: Minimal Assist Walk 150 ft in corridor: Not tested Walking 10 ft on unlevel surface: Not tested Picking up objects: Not tested ASSESSMENT: Body structures, Functions, Activity limitations: Decreased functional mobility ;Decreased endurance;Decreased balance;Increased pain;Decreased strength Decision Making: Medium Complexity History: high Exam: medium Clinical Presentation: medium Prognosis: Good PT Education: Goals;PT Role;Equipment;General Safety;Plan of Care CLINICAL IMPRESSION: Pt presents with deficits as above following surgery. She is requiring assistance for mobility at this time. Pt was previously indep in gait without devices. Pt is in need of PT prior to safe return to home PLAN OF CARE: Frequency: 1-2 treatment sessions per day, 5-7 days per week Plan Comment: Cont per POC. Current Treatment Recommendations: Strengthening, Functional Mobility Training, Neuromuscular Re-education, Home Exercise Program, Equipment Evaluation, Education, & procurement, Transfer Training, Gait Training, Safety Education & Training, Modalities, Balance Training, Endurance Training,Stair training, Pain Management, Patient/Caregiver Education & Training, Positioning, Manual Therapy - Soft Tissue Mobilization Patient's Goal: to walk safely without device GOALS: Short term goals Short term goal 1: stand >5 min with SBA Short term goal 2: pt to be SBA with rolling side to side to initiate log roll long term goals jail goal 1: pt to be indep with bed mobility long term goal 2: pt to be indep with bed transfers long term goal 3: pt to [id number] ft with supervision jail goal 4: pt to navigate 4 steps with SBA long term goal 5: for P[place]ano balance testing ELOS: Plan weeks: 2 Therapy Time: Individual Time In 1000 Time Out 1030 Minutes 30 Lakisha Trevino PT, 11/16/18 at 12:00 PM * Marybel Ackerman, [facility] - 11/15/2018 11:29 PM EDT Tashia Stark Respiratory Therapy Evaluation Current Order: ACCUNEB .63 Q4 [place] Home Regimen: NONE Ordering Physician: JOHN PAUL Re-evaluation Date: EVAL DONE Diagnosis: SEPSIS Patient Status: Stable / Unstable + Physician notified The following MDI Criteria must be met in order to convert aerosol to MDI with spacer. If unable tomeet, MDI will be converted to aerosol: [] Patient able to demonstrate the ability to use MDI effectively [] Patient alert and cooperative [] Patient able to take deep breath with 5-10 second hold [] Medication(s) available in this delivery method [] Peak flow greater than or equal to 200 ml/min Current Order Substituted To (same drug, same frequency) Aerosol to MDI [] Albuterol Sulfate 0.083% unit dose by aerosol Albuterol Sulfate MDI 2 puffs by inhalation with spacer [] Levalbuterol 1.25 mg unit dose by aerosol Levalbuterol MDI 2 puffs by inhalation with spacer [] Levalbuterol 0.63 mg unit dose by aerosol Levalbuterol MDI 2 puffs by inhalation with spacer [] Ipratropium [place]o 0.02% unit dose by aerosol Ipratropium Trego MDI 2 puffs by inhalation with spacer [] Duoneb (Ipratropium + Albuterol) unit dose by aerosol Ipratropium MDI + Albuterol MDI 2 puffs byinhalation w/spacer MDI to Aerosol [] Albuterol Sulfate MDI Albuterol Sulfate 0.083% unit dose by aerosol [] Levalbuterol MDI 2 puffs by inhalation Levalbuterol 1.25 mg unit dose by aerosol [] Ipratropium Trego MDI by inhalation Ipratropium Trego 0.02% unit dose by aerosol [] Combivent (Ipratropium + Albuterol) MDI by inhalation Duoneb (Ipratropium + Albuterol) unit doseby aerosol Treatment Assessment [Frequency/Schedule]: Change frequency to: ACCUNEB Q4 PRN per Protocol, P&T, [facility] Points 0 1 2 3 4 Pulmonary Status Non-Smoker [x] Smoking history < 20 pack years [] Smoking history ? 20 pack years [] Pulmonary Disorder (acute or chronic) [] Severe or Chronic w/ Exacerbation [] Surgical Status No [x] Surgeries General [] Surgery Lower [] Abdominal Thoracic or [] Upper Abdominal Thoracic with PulmonaryDisorder [] Chest X-ray Clear/Not Ordered [] Chronic Changes Results Pending [x] Infiltrates, atelectasis, pleural effusion, or edema [] Infiltrates in more than one lobe [] Infiltrate + Atelectasis, &/or pleural effusion [] Respiratory Pattern Regular, RR = 12-20 [x] Increased, RR = 21-25 [] ELDER, irregular, or RR = 26-30 [] Decreased FEV1 or RR = 31-35 [] Severe SOB, use of accessory muscles, or RR ? 35 [] Mental Status Alert, oriented, Cooperative [x] Confused but Follows commands [] Lethargic or unable to follow commands [] Obtunded[] Comatose [] Breath Sounds Clear to auscultation [] Decreased unilaterally or in bases only [x] Decreased bilaterally [] Crackles or intermittent wheezes [] Wheezes [] Cough Strong, Spontan., & nonproductive [x] Strong, spontaneous, & productive [] Weak, Nonproductive [] Weak, productive or with wheezes [] No spontaneous cough or may require suctioning [] Level of Activity Ambulatory [x] Ambulatory w/ Assist [] Non-ambulatory [] Paraplegic [] Quadriplegic [] Total Score:___2___ Triage Score:___5 Tri Triage: 1. (>20) Freq: Q3 2. (16-20) Freq: Q4 3. (11-15) Freq: QID & Albuterol Q2 PRN 4. (6-10) Freq: TID & Albuterol Q2 PRN 5. (0-5) Freq Q4prn * Li Winslow RN - 11/15/2018 5:56 PM EDT Patient admitted from . Pivot x1 to wheelchair. Noted with temp of 100.9 upon arrival to unit, WBC noted 19.8 on morning lab work. Dr. Coker aware and CBC with blood cultures ordered. Stated tohold off giving Tylenol at this time and she will see patient tonight. Patient seen by Dr. Stevens,will remain on tele at this time. Dressing intact to lumbar spine. Patient stated she has not had lenny wel movement since Monday and she normally takes Miralax so that was ordered at this time. documented in this encounter Assessments Diagnosis Lumbar radiculopathy- Primary Thoracic or lumbosacral neuritis or radiculitis, unspecified Intractable low back pain Lumbago Diagnosis Spinal stenosis of lumbosacral region- Primary Spinal stenosis, lumbar region, without neurogenic claudication Impaired mobility Other ill-defined conditions Vasovagal syncope Syncope and collapse Reason for Referral Status Reason Specialty Diagnoses / Procedures Referred By Contact Referred To Contact [facility] Required Physical Therapy Diagnoses Spinal stenosis of lumbosacral region Impaired mobility Vasovagal syncope [facility] [address] [place] [address] Chief Complaint and Reason for Visit Chief Complaint SYNCOPE Additional Source Comments INFORMATION SOURCE (unrecogn ized section and content) DATE CREATED AUTHOR 04/20/2018 [facility] DATE CREATED AUTHOR AUTHOR'S ORGANIZ ATION 11/24/2018 [facility] DATE CREATED AUTHOR AUTHOR'S ORGANIZ ATION 06/14/2022 [facility] DATE CREATED AUTHOR AUTHOR'S ORGANIZ ATION 08/21/2022 [facility] DATE CREATED AUTHOR AUTHOR'S ORGANIZ ATION 12/23/[address] [facility] DATE CREATED AUTHOR AUTHOR'S ORGANIZ ATION 01/13/2023 [facility] Reason for Visit (unrecogniz ed section and content) Reason Comments Back Pain Left low back pain r adiates down left leg. Pain flared up last monday Status Reason Specialty Diagnoses / Procedures Referre d By Contact Referred To Contact Diagnoses Intractable back pain Lenny Corral MD [address], [address] [place] [address] [facility] Patient Care team informatio n (unrecognized section and content) Team Status: Active Member Role Status Ruddy Daniels MD Primary Care Provider Active Team Status: Inactive Member Role Status Ruddy Daniels MD Primary Care Provider Active Camacho Ladd DO Emergency Provider Active Goals (unrecognized section and content) Goals may be documented in a n alternate section FOR RECORDS PERTAINING TO PATIENTS WHO ARE OR HAVE BEEN ENROLLED IN A CHEMICAL DEPENDENCY/SUBSTANCEABUSE PROGRAM, SOME INFORMATION MAY BE OMITTED. This clinical summary was aggregated from multiple sources. Caution should be exercised in using it in the provision of clinical care. This summary normalizes information from multiple sources, and as a consequence, information in this document may materially change the coding, format and clinical context of patient data. In addition, data may be omitted in some cases. CLINICAL DECISIONS SHOULD BE BASED ON THE PRIMARY CLINICAL RECORDS. [facility]. provides no warranty or guarantee of the accuracy or completeness of information in this document.
[2023-02-08 12:29] LABS: SARS-CoV-2 Ag POSITIVE (NEGATIVE)
== END 2023-02-08 11:51 | disposition home or self-care (01) ==
LOC: LAB 11:50
PROVIDERS: PCP Family Medicine; Visit Provider Family Medicine
DX: J32.9 Chronic sinusitis, unspecified (principal)
CPT/HCPCS: 87811

== ENCOUNTER 2023-02-10 08:55 | Inpatient (IN) | payer MEDICARE, OTHER, SELFPAY ==
[2023-02-10] VITALS (34 sets, daily range): BP systolic 116–168; BP diastolic 54–90; PULSE 59–95; RESP 17–26; TEMP 36.7–37; O2SAT 92–98; BMI 26.5; BMI 26.9
--- NOTE | 2023-02-10 09:09 | XR_ITS ---
The [address] [address] Patient Name: HIRAM MADRID MRN: [id number] date: 1935 Sex: F Assigned Patient Location: ER Current Patient Location: ER Accession/Order Number: [id number] Exam Date: 02/10/2023 09:30 Report Date: 02/10/2023 09:54 At the request of: LEONARDA GEORGE Procedure: XR chest 1V EXAM: XR chest 1V HISTORY: fall COMPARISON: Chest study dated 01/13/2023 TECHNIQUE: AP view of the chest was obtained with portable technique at 0939 hours. FINDINGS: Heart and mediastinal contours are unremarkable in appearance. No acute infiltrate or consolidations are seen. No obvious pneumothorax. Mild degenerative changes suggested about the dorsal spine and shoulders. XR/XR chest 1V IMPRESSION: No acute process seen in the chest. Electronically authenticated by: HUSSEIN SAWANT Date: 02/10/2023 09:54
--- NOTE | 2023-02-10 09:09 | CT_ITS ---
The [address] [address] Patient Name: HIRAM MADRID MRN: [id number] date: 1935 Sex: F Assigned Patient Location: ER Current Patient Location: ER Accession/Order Number: [id number] Exam Date: 02/10/2023 09:30 Report Date: 02/10/2023 10:08 At the request of: LEONARDA GEORGE Procedure: CT pelvis wo con EXAM: CT pelvis wo con HISTORY: fall COMPARISON: None. TECHNIQUE: Axial CT images were obtained of the pelvis without intravenous contrast. Images were reformatted in the coronal and sagittal planes. PELVIS FINDINGS: Bones: No acute osseous abnormality. Posterior lumbar fusion hardware is partially visualized with transpedicular screws at the L4 and L5 level and postlaminectomy changes. There are mild to moderate degenerative changes present in bilateral hips with loss of joint space and marginal spurring. Soft tissues: There is a soft tissue contusion in the subcutaneous fat lateral to the left hip. Gastrointestinal/Peritoneum: No acute abnormality. Sigmoid diverticulosis is noted. Prior appendectomy. No free air or free fluid. Vascular: Atherosclerotic calcifications present in the visualized aortoiliac vessels. Lymph Nodes: No enlarged lymph nodes by CT size criteria. Pelvic Organs: Unremarkable. Bladder: Unremarkable. Visualized upper abdomen: Unremarkable. CT/CT pelvis wo con IMPRESSION: 1. No acute fracture. 2. Soft tissue contusion at the lateral aspect of the left hip. Electronically authenticated by: ALLISON LAURENT Date: 02/10/2023 10:08
--- NOTE | 2023-02-10 09:09 | CT_ITS ---
The [address] [address] Patient Name: HIRAM MADRID MRN: [id number] date: 1935 Sex: F Assigned Patient Location: ER Current Patient Location: ER Accession/Order Number: [id number] Exam Date: 02/10/2023 09:30 Report Date: 02/10/2023 10:03 At the request of: LEONARDA GEORGE Procedure: CT head/brain wo con EXAM: CT head/brain wo con HISTORY: fall COMPARISON: CT head study dated 08/10/2022 TECHNIQUE: CT head study was performed without the use of intravenous contrast. Multiple axial images were obtained. Reformatted coronal and sagittal images were obtained and reviewed. FINDINGS: Mild cerebral atrophy which is commensurate the patient's age. No evidence of mass effect or midline shift. No acute intracranial hemorrhage is identified. No evidence of focal mass lesion is seen. Areas of decreased attenuation in the white matter compatible with chronic ischemic changes similar to the prior study. Falx calcification is noted anteriorly. Calvarium appears grossly intact. Carotid artery ossifications are noted bilaterally. Visualized mastoid air cells appear grossly unremarkable as do the intraorbital regions. Mild mucosal thickening in ethmoid sinuses, right maxillary sinus and sphenoid sinuses with small air-fluid level in the left maxillary sinus. Correlate for mild sinusitis. CT/CT head/brain wo con IMPRESSION: CT head study fails to demonstrate evidence of acute bleed or focal mass. No evidence of skull fracture. Correlate for mild sinusitis as noted. Electronically authenticated by: HUSSEIN SAWANT Date: 02/10/2023 10:03
--- NOTE | 2023-02-10 09:09 | CT_ITS ---
The [address] [address] Patient Name: HIRAM MADRID MRN: [id number] date: 1935 Sex: F Assigned Patient Location: ER Current Patient Location: ER Accession/Order Number: [id number] Exam Date: 02/10/2023 09:30 Report Date: 02/10/2023 10:03 At the request of: LEONARDA GEORGE Procedure: CT cervical spine wo con EXAM: CT cervical spine wo con HISTORY: fall COMPARISON: None. TECHNIQUE: Axial CT images were obtained of the cervical spine without intravenous contrast. Multiplanar reconstructions were performed. FINDINGS: No acute fracture or malalignment. Multilevel degenerative changes are present in the cervical spine. There is moderate left neural foraminal stenosis at the C3-C4 and moderate right neural foraminal stenosis at the C5-C6 and C6-C7 levels due to uncovertebral and facet hypertrophy. A posterior disc osteophyte complex at C5-C6 is causing moderate spinal canal stenosis and possible severe stenosis of the right lateral recess. Unremarkable appearance of the paraspinal soft tissues. CT/CT cervical spine wo con IMPRESSION: 1. No acute abnormality. 2. Multilevel degenerative changes present in the cervical spine, greatest at C5-C6. Electronically authenticated by: ALLISON LAURENT Date: 02/10/2023 10:03
--- NOTE | 2023-02-10 09:09 | ECG_ITS ---
The [facility] Test Date: 2023-02-10 Pat Name: HIRAM MADRID Department: Room: - Gender: Female [employer]: : 1935 Requested By: MAMI DANIELS Order Number: [id number] Reading MD: MAMI DANIELS Measurements Intervals Sharon Rate: 70 P: 61 ND: 194 QRS: 26 QRSD: 148 T: -2 QT: 460 QTc: 480 Interpretive Statements 1100 Sinus rhythm 1470 with occasional supraventricular premature complexes 2450 Right bundle branch block Non-Specific T wave inversion in III 9150 abnormal ECG Compared to ECG 01/13/2023 18:55:36 No significant changes Electronically Signed On 02-14-2023 7:51:50 EST by MAMI DANIELS
--- OUTSIDE RECORDS SUMMARY | 2023-02-10 09:17 | XMS_ITS | CCD ---
Author Name Unknown Address [address] [place] [address] Organization [facility] Care Team Providers Care Occupational Health Professional Name Role Phone PHYSICIAN, DEFAULT Admitting Unavailable PHYSICIAN, DEFAULT Attending Unavailable CALISTA ACEVES Primary Care Unavailable ELLIS, LENNY H. Admitting Unavailable ELLIS, LENNY H. Attending Unavailable ELLIS, LENNY H. Admitting Unavailable ELLIS, LENNY H. Attending Unavailable CALISTA ACEVES Primary Care Unavailable DULCE STEVENS Consulting Unavailable MARY VEGA Admitting Unavaila MARY Juárez Attending Unavaila CALISTA Rand Primary Care Unavailable NOLBERTO GIBBONS Consulting Unavailable DULCE STEVENS Consulting Unavailable ELLIS, LENNY H. Consulting Unavailable TY JON Consulting Unavailable CARLOS PAGE Consulting Unavailable ELLIS, LENNY H. Attending Unavailable ELLIS, LENNY H. Referring Unavailable CALISTA ACEVES Primary Care Unavailable Calista Aceves Primary Care Provider [phone] CALISTA ACEVES Primary Care Physician [phone] DR VALERIE DARDEN Consulting Unavailable JEREMIAH .DR [...] Unavailable HOY ., DR BOLAÑOS Consulting Unavailable KETAN, DR CALISTA Pereira Primary Care Unavailable TRAY FORMAN Consulting Unavailable [...] Unavailable MD Addy Daniels Primary Care Provider [phone] DO Camacho Ladd Emergency Provider [facility] Camacho Rocha Admitting Unavailable Addy Daniels [...] Allergy 8 Hives, Eruption of skin (disorder) [place], [place] (2 sources) predniSONE Drug Allergy 7 [facility] Repository (1 source) predniSONE Drug Allergy 3 [facility] Rep[facility] (3 sources) atorvastatin; Translations: [atorvastatin] Drug Allergy 3 Unknown (qualifier value) [facility] (2 sources) Ibuprofen; Translations: [ibuprofen] Drug Allergy Unknown (qualifier value) [facility] Natalya Medications Current Medications Medication Drug [...] 0900 take 1 tablet by mouth once dominic y aspirin 81 MG tablet Take 81 mg by mouth daily 0 Active bacitracin 0.5 unt/mg / neomycin 0.0035 mg/mg / polymyxin b 10 unt/mg topical ointment (2 sources) Aminoglycoside Antibacterial, Polymyxin-class Antibacterial Start: 11-16-2018 End: 11-18-2018 vwopefvu-shomepqpue-dujojymp n (NEOSPORIN) ointment carvedilol (1 source) alpha-Adrenergic [...] 5 August 05, 2022 polyethylene glycol 3350 29191 mg powder for oral solution (1 source) Osmotic Laxative Start: 11-15-2018 polyethylene glycol (GLYCOLAX) packet 17 g Potassium Chloride (7 sources) Start: 08-10-2022 Potassium Chlo ride (Vie-Holh-Bax 10) mEq, Oral, BID Start Date: 08/10/22 Status: Ordered Start: 11-05-2018 End: 11-05-2018 potassium chloride (KLOR-CON M) extended release tablet 40 mEq Start: 11-04-2018 20 mEq, Oral, 2 TIMES DAILY, First dose on Aura 11/15/18 at 2100 Dilute with at least 4 ounces of cold water. May further dilute if GI adverse effects occur. 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] Onset: 12-31-2021 Episodic 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 source) 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; Translations: [OTH LONGTERM CURRENT DRUG THERAPY] Onset: 12-31-2021 Episodic Residual codes; unclassified (2 sources) Localized edema; Translations: [Localized edema] Onset: 04-04-2022 Episodic Spondylosis; intervertebral disc disorders; other back problems (10 sources) Lumbar radiculopathy; Translations: [Intractable low back pain] Onset: 11-04-2018 11-04-2018 Episodic Unclassified (1 source) Other ventricular tachycardia; Translations: [Other ventricular tachycardia] Onset: 01-11-2023 Results Test Name Value Interpretation Reference Range Facility Office Visiton 01-11-2023 Follow-up visit [id number] Hiram Madrid 1935 F Date Provider Department Center 01/11/2023 LESLY GASPAR CARD [facility] Family History Problem Relation Age of Onset Hypertension Mother Lupus Mother Coronary artery disease Mother Heart attack Mother Hypertension Father Aneurysm Father Coronary artery disease Father Hypertension Sister Lupus Sister Family Status - Relation Status Age at Mother Father Sister Level of Service:[address] CT OFFICE/OUTPATIENT ESTABLISHED MOD MDM 30-39 MIN Normal [facility] Lab Reportson 12-23-2022 Lab Reports [id number] 0TIFF Normal [facility] Urology Office/Clinic Noteon 12-23-2022 Urology Office/Clinic [...] Pt presented to ER due to syncope. [place] was found incidentally on CT. CT AP [...] Contact Information ABDULLAHI NOONAN, MIKAYLA Pereira, URL [address] [place] [address] [phone] Additional Instructions: 6 mos w/ renal fxn [...] Tab losartan 100 mg Tab Potassium Chloride (Bib-Czgn-Wao 10), Oral, BID pravastatin 80 mg Tab [...] virus vaccine, (more content not included)... Normal [facility] Comment on above: Result Comment: Elec tronically Signed By: MIKAYLA WEISS PA-C\.br\Date and Time Signed: 12/23/22 12:13 EDT\.br\Electronically Co-Signed By: Jacquie Gan\.br\Date and Time Co-Signed: 12/22/22 12:27 EDT Ambulatory Visit Summaryon 1 02-21-2022 Ambulatory Visit Summary HIRAM MADRID :1935 Visit Date:12/22/2022 Ambulatory Visit Instructions Your Diagnosis Hydronephrosis, right Ureteral stenosis Tests Performed Urnls Dip Stick Auto w/o Microscopy POC 78736 US Renal -- Results Pending -- Please [...] 100 mg Tab) potassium chloride (Potassium Chloride (Xqy-Kzfq-Whu 10)) pravastatin (pravastatin 80 mg Tab) Procedures Performed Appendectomy, Bilateral salpingo-oophorectomy, Cataract extraction and insertion of intraocular lens, Cholecystectomy, Colonoscopy, Procedure on back, Tonsillectomy. Discharge Vitals Blood Pressure 124/84 Height 155 cm Height 61 in Weight 64.8 kg Weight 142.56 lb BMI 26.97 What to do next Scheduled Follow-Up Appointments June. 2023 9:30 AM EDT With: MIKAYLA WEISS PA-C Where: [facility] Natalya Anders [facility] Patient Educationon 12-23-19 Patient Education Urology [...] Follow these instructions at home: ? Take weaw-gxs-oqlqzqu and prescription medicines only as told by [...] provider. Document Revised: 05/26/2020 Document Reviewed: 05/26/2020 [employer] Patient Education ? 2022 [employer]. Normal [facility] RAD - Ultrasound Reporton RAD - Ultrasound Report [id number] 0TIFF [facility] Reminderson 12-22-2022 Reminders - From: Jacquie Gan To: ERIN Weiss; Sent: 12/22/2022 12:30:05 EDT Show up: 05/23/2023 12:30:00 EDT Subject: JAC and BUN/Creatinine prior to appt Reminder Message Please Remember to:_have pt schedule JAC prior to appt. Please look for BUN/Cr labs from PCP. If unable to locate recent labs, send pt order to complete this. Normal [facility] Orders Onlyon 10-25-2022 Orders Only [id number] Hiram Madrid 1935 F Date Provider Department Center 10/25/2022 [facility] Problem Relation Age of Onset Hypertension Mother Lupus Mother Coronary artery disease Mother Heart attack Mother Hypertension Father Aneurysm Father Coronary artery disease Father Hypertension Sister Lupus Sister Family Status - Relation Status Age at Mother Father Sister Normal [facility] 37on 10-14-2022 37 Increase coreg/carvedilol to 25 mg twice a day- you have 12.5 mg tabs now so take 2 twice a day until this bottle is gone- your next refill will be the higher dose of 25 mg bid. Have labs drawn [facility] Office Visiton 10-14-2022 Follow-up visit [id number] Hiram Madrid 1935 Date Provider Department Center 10/14/2022 LESLY GASPAR SONIA Fatmata [facility] Family History Problem Relation Age of Onset Hypertension Mother Lupus Mother Coronary artery disease Mother Heart attack Mother Hypertension Father Aneurysm Father Coronary artery disease Father Hypertension Sister Lupus Sister Family Status - Relation Status Age at Mother Father Sister Level of Service:67415 CT OFFICE/OUTPATIENT ESTABLISHED MOD MDM 30-39 MIN [facility] Consent for Procedure/Surger yon 09-07-2022 Consent for Procedure/Surgery [id number]. 00CD:127 [facility] Ambulatory Visit Summaryon 0 09-06-2022 Ambulatory Visit [...] 100 mg Tab) potassium chloride (Potassium Chloride (Xyc-Sqyn-Wwm 10)) pravastatin (pravastatin 80 mg Tab) Procedures Performed Appendectomy, Bilateral salpingo-oophorectomy, Cataract extraction and insertion of intraocular lens, Cholecystectomy, Colonoscopy, Procedure on back, Tonsillectomy. Discharge Vitals Height 155 cm Height 61 in Weight 65 kg Weight 143 lb BMI 27.06 What to do next Scheduled Follow-Up Appointments Monday 2:00 PM EDT With: CHRISTY DUMONT, Raymond Mckeon Where: [facility] Patient Educationon 09-07-19 Patient Education Urology [...] Follow these instructions at home: ? Take gllz-dnj-sxegtgq and prescription medicines only as told by [...] provider. Document Revised: 05/26/2020 Document Reviewed: 05/26/2020 [employer] Patient Education ? 2022 [employer] Normal [facility] Urology Office/Clinic Noteon 09-06-2022 Urology Office/Clinic [...] See #2. Follow-up With When Contact Information CRHISTY DUMONT, Raymond Mckeon, URL [facility] [address], [place] [address]- Additional Instructions: 3 mos no labs Patient [...] Tab losartan 100 mg Tab Potassium Chloride (Pdu-Gtcn-Zra 10), Oral, BID pravastatin 80 mg Tab [...] inactivated 12/06/2016 Rec (more content not included)... [facility] Comment on above: Result Comment: Elec tronically Signed By: Raymond HARRISON MD\.br\Date and Time Signed: 09/06/22 13:02 EDT\.br\Electronically Co-Signed By: Josefa Stewart\.br\Date and Time Co-Signed: 09/06/22 13:01 EDT Operative Reporton Operative Report [id number] CD:127 [facility] RAD - MISCon 08-12-2022 RAD - MISC [id number] CD:127 [facility] Ambulatory Visit Summaryon 0 08-10-2022 Ambulatory Visit Summary HIRAM MADRID :1935 Visit Date:08/10/2022 Ambulatory Visit Instructions Your Diagnosis Hydronephrosis, right Aspirin long-term use Tests Performed Urnls Dip Stick Auto w/o Microscopy POC 49934 Your Care Team Attending Physician - Raymond HARRISON MD Primary Care Physician - Addy Daniels MD This Is Your Medications List Contact prescribing physician if questions or concerns amlodipine (amLODIPine 10 mg Tab) aspirin (aspirin 81 mg oral capsule) carvedilol hydrochlorothiazide levothyroxine (levothyroxine 88 mcg (0.088 mg) Tab) losartan (losartan 100 mg Tab) potassium chloride (Potassium Chloride (Atd-Oaiw-Qqt 10)) pravastatin (pravastatin 80 mg Tab) Procedures [...] Eller When: Where: [facility] [address] [place] [address]- Medications What How Much When Instructions Unchanged [...] or concerns Unchanged potassium chloride (Potassium Chloride (Ywy-Btjz-Jki 10)) 2 times a day Contact prescribing physician if questions or concerns Unchanged pravastatin (pravastatin 80 mg Tab) 30 EA, TAKE 1 TABLET BY MOUTH ONCE DAILY Contact prescribing physician if questions or concerns Test Results Urnls Dip Stick Auto w/o Microscopy POC 85771 (08/10/2022) Bilirubin Urine Dipstick - Negative Blood Urine Dipstick - Negative Glucose Urine Dipstick - Negative Ketones Urine Dipstick - Negative Leukocytes Urine Dipstick - Trace Nitrite Urine Dipstick - Negative Protein Urine Dipstick - Negative Specific Fults Urine Dipstick - 1.025 Urine Appearance Urine [...] what caus (more content not included)... Normal [facility] Ambulatory Visit Summary HIRAM MADRID :1935 Visit Date:08/10/2022 Ambulatory Visit Instructions Your Diagnosis Hydronephrosis, right Aspirin long-term use Tests Performed Urnls Dip Stick Auto w/o Microscopy POC 29968 Your Care Team Attending Physician - CHRISTY DUMONT, Raymond Mckeon Primary Care Physician - Addy Daniels MD This Is Your Medications List Contact prescribing physician if questions or concerns amlodipine (amLODIPine 10 mg Tab) aspirin (aspirin 81 mg oral capsule) carvedilol hydrochlorothiazide levothyroxine (levothyroxine 88 mcg (0.088 mg) Tab) losartan (losartan 100 mg Tab) potassium chloride (Potassium Chloride (Opl-Ahwq-Ggp 10)) pravastatin (pravastatin 80 mg Tab) Procedures [...] Eller When: Where: [facility] [address] [place] [address]- Medications What How Much When Instructions Unchanged [...] or concerns Unchanged potassium chloride (Potassium Chloride (Ipe-Lfvx-Lse 10)) 2 times a day Contact prescribing physician if questions or concerns Unchanged pravastatin (pravastatin 80 mg Tab) 30 EA, TAKE 1 TABLET BY MOUTH ONCE DAILY Contact prescribing physician if questions or concerns Test Results Urnls Dip Stick Auto w/o Microscopy POC 72813 (08/10/2022) Bilirubin Urine Dipstick - Negative Blood Urine Dipstick - Negative Glucose Urine Dipstick - Negative Ketones Urine Dipstick - Negative Leukocytes Urine Dipstick - Trace Nitrite Urine Dipstick - Negative Protein Urine Dipstick - Negative Specific Fults Urine Dipstick - 1.025 Urine Appearance Urine [...] what caus (more content not included)... Normal [facility] Consent for Procedure/Surger yon 08-10-2022 Consent for Procedure/Surgery [id number] CD:127 [facility] Formson 08-10-2022 Forms [id number] CD:127 [facility] Patient Educationon 08-11-19 Patient Education Urology Hydronephrosis [...] Follow these instructions at home: ? Take cyng-lrs-rlhahul and prescription medicines only as told by [...] provider. Document Revised: 05/26/2020 Document Reviewed: 05/26/2020 [employer] Patient Education ? 2022 [employer]. [employer] [facility] Urology Office/Clinic Noteon 08-10-2022 Urology Office/Clinic Note Chief Complaint Kidney stones HPI Staff New Pt follow up to [facility] on 08/05/22 due [...] female new pt following up to [facility] ER visit on [...] General anesthesia. 2. 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 Follow-up With When Contact Information Raymond HARRISON MD, URL [facility] [address], [place] [address]- Additional Instructions: schedule R URS, possible laser [...] No qualifyin (more content not included)... Normal [facility] Comment on above: Result Comment: Elec tronically Signed By: Raymond HARRISON MD\.br\Date and Time Signed: 08/10/22 09:39 EDT\.br\Electronically Co-Signed By: Josefa Stewart\.br\Date and Time Co-Signed: 08/10/22 09:38 EDT XR KUBon 08-09-2022 XR KUB [facility] [address] [address] XRay Report Signed Patient: Hiram Madrid MR#: [id number] : 1935 Acct:[id number] Age/Sex: 86 / F ADM Date: 08/09/22 Loc: XD Room: Type: [facility] Attending Dr: Raymond Harrison MD Copies to: [...] SEEN. Impression dictated by: Kameron Lopez Jr., D.OYou08/09/2022 3:58 PM Dictation Location: [place] [address] Transcribed By: [facility] 08/09/22 1558 Dictated By: Kameron Lopez Jr, DO 08/09/22 1555 Signed By: 08/09/22 1558 Normal [facility] CT abdomen pelvis wo conon 0 08-06-2022 CT abdomen pelvis wo con [place] [id number] CT Scan Report Signed Patient: Hiram Madrid MR#: [id number] : 1935 Acct:[id number] Age/Sex: 86 / F ADM Date: 08/05/22 Loc: ER Room: Type: [facility] ER Attending Dr: Copies to: Camacho Ladd [...] Faye Wyman M.D.08/06/2022 8:43 AM Dictation Location: [place] [address] Transcribed By: [facility] 08/06/22 0843 Dictated By: Faye Wyman MD 08/06/22 0830 Signed By: 08/06/22 0843 Normal [facility] Alanine aminotransferase [En zymatic activity/volume] in Serum or PlasmaOrdered By: Camacho Ladd on 08-05-2022 ALT [Catalytic activity/Vol] 16 U/L 7-52 [facility] Albumin [Mass/volume] in Ser um or Plasma by Bromocresol green (BCG) dye binding methoOrdered By: Camacho Ladd on 08-05-2022 Albumin BCG dye [Mass/Vol] 4.4 g/dL 3.5-5.7 [facility] Alkaline phosphatase [Enzyma tic activity/volume] in Serum or PlasmaOrdered By: Camacho Ladd on 08-05-2022 ALP [Catalytic activity/Vol] 61 U/L 34-104 [facility] Aspartate aminotransferase [ Enzymatic activity/volume] in Serum or PlasmaOrdered By: Camacho Ladd on 08-05-2022 AST [Catalytic activity/Vol] 21 U/L 13-39 [facility] Automated erythrocytes count in urine sediment (number/area)Ordered By: Camacho Ladd on 08-05-2022 RBC Auto (Urine sed) [#/Area] 0-1 [HPF] 0-4 [facility] Automated leukocytes count i n urine sediment (number/area)Ordered By: Camacho Ladd on 08-05-2022 WBC Auto (Urine sed) [#/Area] 1-2 [HPF] 0-4 [facility] Basic Metabolic Panelon 07-21 Anion gap [Moles/Vol] 17.8 mmol/L High 6.0-15.0 [facility] Comment on above: Performed By: #### H S TROP, HEPATIC, LIPASE, CBC, BMP #### [facility] [address] Calcium [Mass/Vol] 9.7 mg/dL Normal 8.6-10.3 [facility] Comment on above: Performed By: #### H S TROP, HEPATIC, LIPASE, CBC, BMP #### [facility] [address] [place] [address] [place] Chloride [Moles/Vol] 87 mmol/L Low 98-107 [facility] Comment on above: Performed By: #### H S TROP, HEPATIC, LIPASE, CBC, BMP #### [facility] [address] [place] [address] [place] CO2 [Moles/Vol] 23.2 mmol/L Normal 21.0-31.0 [facility] Comment on above: Performed By: #### H S TROP, HEPATIC, LIPASE, CBC, BMP #### [facility] [address] Creatinine [Mass/Vol] 1.03 mg/dL Normal 0.60-1.20 [facility] Comment on above: Performed By: #### H S TROP, HEPATIC, LIPASE, CBC, BMP #### [facility] [address] Creatinine Clr Calc Pharmacy 35.13 [facility] Comment on above: Performed By: #### H S TROP, HEPATIC, LIPASE, CBC, BMP #### [place] [address] [place] GFR/1.73 sq M.predicted MDRD (S/P/Bld) [Vol rate/Area] 53.284 mL/min/{1.73_m2} [facility] Comment on above: Performed By: #### H S TROP, HEPATIC, LIPASE, CBC, BMP #### [address] Glucose [Mass/Vol] 156 mg/dL High 70-100 [facility] Comment on above: Result Comment: [facility] Glucose Reference Range is dependent on time and content of last meal. Glucose of more than 200 mg/dL in a nonstressed, ambulatory subject supports the diagnosis of Diabetes Mellitus. ADA recommended reference range Performed By: #### H S TROP, HEPATIC, LIPASE, CBC, BMP #### [address] Potassium [Moles/Vol] 3.0 mmol/L Low 3.5-5.1 [facility] Comment on above: Performed By: #### H S TROP, HEPATIC, LIPASE, CBC, BMP #### [place] [address] [place] Sodium [Moles/Vol] 125 mmol/L Low 136-145 [facility] Comment on above: Performed By: #### H S TROP, HEPATIC, LIPASE, CBC, BMP #### [place] [address] [place] Urea nitrogen [Mass/Vol] 12 mg/dL Normal 7-25 [facility] Comment on above: Performed By: #### H S TROP, HEPATIC, LIPASE, CBC, BMP #### [facility] [address] Basophils Auto (Bld) [#/Vol] Ordered By: Camacho Ladd on 08-05-2022 Basophils (Bld) [#/Vol] 0.1 10*3/uL 0.0-0.2 [facility] Basophils/100 WBC Auto (Bld) Ordered By: Camacho Ladd on 08-05-2022 Basophils/100 WBC (Bld) 0.4 % . F [facility] Bilirubin Test strip Ql (U)O rdered By: Camacho Ladd on 08-05-2022 Bilirubin Ql (U) Negative Negative [facility] Bilirubin.direct [Mass/volum e] in Serum or PlasmaOrdered By: Camacho Ladd on 08-05-2022 Bilirubin.direct [Mass/Vol] 0.10 mg/dL 0.03-0.18 [facility] Bilirubin.total [Mass/volume ] in Serum or PlasmaOrdered By: Camacho Ladd on 08-05-2022 Bilirubin [Mass/Vol] 0.7 mg/dL 0.3-1.0 [facility] Calcium [Mass/volume] in Ser um or PlasmaOrdered By: Camacho Ladd on 08-05-2022 Calcium [Mass/Vol] 9.7 mg/dL 8.6-10.3 [facility] Carbon dioxide, total [Moles /volume] in Serum or PlasmaOrdered By: Camacho Ladd on 08-05-2022 CO2 [Moles/Vol] 23.2 mmol/L 21.0-31.0 [facility] Chloride [Moles/volume] in S willa or PlasmaOrdered By: Camacho Ladd on 08-05-2022 Chloride [Moles/Vol] 87 mmol/L 98-107 [facility] Color Auto (U)Ordered By: Ender Ladd on 08-05-2022 Color (U) Yellow Yellow [facility] Complete Blood Count Auto Di ffon 08-05-2022 Basophils (Bld) [#/Vol] 0.1 10*3/uL Normal 0.0-0.2 [facility] Comment on above: Result Comment: PERF ORMED BY: [place] [address] PATHOLOGIST HAT BLOCKING MACHINE OPERATOR GOSIA MCADAMS M.D. Performed By: #### H S TROP, HEPATIC, LIPASE, CBC, BMP #### [address] Basophils/100 WBC (Bld) 0.4 % Normal . F [facility] Comment on above: Performed By: #### H S TROP, HEPATIC, LIPASE, CBC, BMP #### [address] Eosinophils (Bld) [#/Vol] 0.1 10*3/uL Normal 0.0-0.45 [facility] Comment on above: Performed By: #### H S TROP, HEPATIC, LIPASE, CBC, BMP #### [address] Eosinophils/100 WBC (Bld) 0.6 % Normal . [facility] Comment on above: Performed By: #### H S TROP, HEPATIC, LIPASE, CBC, BMP #### [address] Erythrocyte distribution width (RBC) [Ratio] 13.6 % Normal 11.9-15.3 [facility] Comment on above: Performed By: #### H S TROP, HEPATIC, LIPASE, CBC, BMP #### [address] Hematocrit (Bld) [Volume fraction] 37.3 % Normal 34.0-46.4 [facility] Comment on above: Performed By: #### H S TROP, HEPATIC, LIPASE, CBC, BMP #### [address] Hemoglobin (Bld) [Mass/Vol] 13.0 g/dL Normal 11.8-15.4 [facility] Comment on above: Performed By: #### H S TROP, HEPATIC, LIPASE, CBC, BMP #### [place] [id number] [place] Lymphocytes (Bld) [#/Vol] 3.1 10*3/uL Normal 1.00-4.8 [facility] Comment on above: Performed By: #### H S TROP, HEPATIC, LIPASE, CBC, BMP #### [facility] [address] [place] [address] Lymphocytes/100 WBC (Bld) 21.9 % Normal . [facility] Comment on above: Performed By: #### H S TROP, HEPATIC, LIPASE, CBC, BMP #### [address] MCH (RBC) [Entitic mass] 31.6 pg Normal 24.7-34.3 [facility] Comment on above: Performed By: #### H S TROP, HEPATIC, LIPASE, CBC, BMP #### [address] MCV (RBC) [Entitic vol] 90.4 fL Normal 80-100 [facility] Comment on above: Performed By: #### H S TROP, HEPATIC, LIPASE, CBC, BMP #### [address] Mean Corpuscular HGB Conc 35.0 g/dL Normal 32.0-35.0 [facility] Comment on above: Performed By: #### H S TROP, HEPATIC, LIPASE, CBC, BMP #### [address] Monocytes (Bld) [#/Vol] 1.4 10*3/uL High 0.0-0.8 [facility] Comment on above: Performed By: #### H S TROP, HEPATIC, LIPASE, CBC, BMP #### [address] Monocytes/100 WBC (Bld) 20.58 % High 0.00-20.00 [facility] Comment on above: Result Comment: For adults in ED, MDW > 20.0 may be associated with a higher risk of sepsis during the first 12 hrs of hospital admission Performed By: #### H S TROP, HEPATIC, LIPASE, CBC, BMP #### [address] Monocytes/100 WBC (Bld) 9.6 % Normal . [facility] Comment on above: Performed By: #### H S TROP, HEPATIC, LIPASE, CBC, BMP #### [address] Neutrophils (Bld) [#/Vol] 9.6 10*3/uL High 1.8-7.7 [facility] Comment on above: Performed By: #### H S TROP, HEPATIC, LIPASE, CBC, BMP #### [address] Neutrophils/100 WBC (Bld) 67.5 % Normal . [facility] Comment on above: Performed By: #### H S TROP, HEPATIC, LIPASE, CBC, BMP #### [address] NRBC% 0.1 /100{WBC} Normal 0-0.5 [facility] Comment on above: Performed By: #### H S TROP, HEPATIC, LIPASE, CBC, BMP #### [address] Platelet mean volume (Bld) [Entitic vol] 7.2 fL Normal 6.3-10.7 [facility] Comment on above: Performed By: #### H S TROP, HEPATIC, LIPASE, CBC, BMP #### [place] [address] [place] Platelets (Bld) [#/Vol] 500 10*3/uL High 150-450 [facility] Comment on above: Performed By: #### H S TROP, HEPATIC, LIPASE, CBC, BMP #### [address] RBC (Bld) [#/Vol] 4.13 10*6/uL Normal 3.60-5.00 [facility] Comment on above: Performed By: #### H S TROP, HEPATIC, LIPASE, CBC, BMP #### [place] [address] [place] WBC (Bld) [#/Vol] 14.2 10*3/uL High 3.8-11.6 [facility] Comment on above: Performed By: #### H S TROP, HEPATIC, LIPASE, CBC, BMP #### [facility] [address] [id number] [place] Creatinine [Mass/volume] in Serum or PlasmaOrdered By: Camacho Ladd on 08-05-2022 Creatinine [Mass/Vol] 1.03 mg/dL 0.60-1.20 [facility] Dipstick and Microscopicon 0 08-05-2022 Appearance (U) Cloudy Critically abnormal Clear [facility] Comment on above: Order Comment: Name Collection Type:: Clean-Voided Midstream Performed By: #### A DDONUAPLUS #### [facility] [address] Bacteria,Urine None Seen Normal None Seen [facility] Comment on above: Order Comment: Name Collection Type:: Clean-Voided Midstream Performed By: #### A DDONUAPLUS #### [facility] [address] [place] [address] [place] Bilirubin,Urine Negative Normal Negative [facility] Comment on above: Order Comment: Name Collection Type:: Clean-Voided Midstream Performed By: #### A DDONUAPLUS #### [facility] [address] [id number] [place] Color (U) Yellow Normal Yellow [facility] Comment on above: Order Comment: Name Collection Type:: Clean-Voided Midstream Performed By: #### A DDONUAPLUS #### [facility] [address] [id number] [place] Glucose Ql (U) Normal Normal Normal [facility] Comment on above: Order Comment: Name Collection Type:: Clean-Voided Midstream Performed By: #### A DDONUAPLUS #### [facility] [address] [id number] [place] Hyaline Casts,Urine None Seen Normal 0-8 [facility] Comment on above: Order Comment: Name Collection Type:: Clean-Voided Midstream Result Comment: PERF ORMED BY: [place] [address] PATHOLOGIST HAT BLOCKING MACHINE OPERATOR GOSIA MCADAMS M.D. Performed By: #### A DDONUAPLUS #### [address] Ketones Ql (U) Negative Normal Negative [facility] Comment on above: Order Comment: Name Collection Type:: Clean-Voided Midstream Performed By: #### A DDONUAPLUS #### [address] Leukocyte esterase Test strip Ql (U) 1+ High Negative [facility] Comment on above: Order Comment: Name Collection Type:: Clean-Voided Midstream Performed By: #### A DDONUAPLUS #### [place] [address] [place] Nitrite,Urine Negative Normal Negative [facility] Comment on above: Order Comment: Name Collection Type:: Clean-Voided Midstream Performed By: #### A DDONUAPLUS #### [place] [address] [place] Occult Blood,Urine Negative Normal Negative [facility] Comment on above: Order Comment: Name Collection Type:: Clean-Voided Midstream Result Comment: PERF ORMED BY: [place] [address] PATHOLOGIST HAT BLOCKING MACHINE OPERATOR GOSIA MCADAMS M.D. Performed By: #### A DDONUAPLUS #### [place] [address] [place] pH (U) 7.0 [pH] Normal 5.0-9.0 [facility] Comment on above: Order Comment: Name Collection Type:: Clean-Voided Midstream Performed By: #### A DDONUAPLUS #### [place] [address] [place] Protein,Urine Negative Normal Negative [facility] Comment on above: Order Comment: Name Collection Type:: Clean-Voided Midstream Performed By: #### A DDONUAPLUS #### [address] [place] [address] [place] RBC LM.HPF (Urine sed) [#/Area] 0 /[HPF] Normal 0-4 [facility] Comment on above: Order Comment: Name Collection Type:: Clean-Voided Midstream Performed By: #### A DDONUAPLUS #### [facility] [address] [place] [address] Specificy Fults,Urine 1.009 Normal 1.001-1.030 [facility] Comment on above: Order Comment: Name Collection Type:: Clean-Voided Midstream Performed By: #### A DDONUAPLUS #### [facility] [address] [place] [address] Squamous Epithelial Cell,Urine 0-1 Normal 0-2 [facility] Comment on above: Order Comment: Name Collection Type:: Clean-Voided Midstream Performed By: #### A DDONUAPLUS #### [facility] [address] [place] [address] Urobilinogen,Urine Normal Normal Normal [facility] Comment on above: Order Comment: Name Collection Type:: Clean-Voided Midstream Performed By: #### A DDONUAPLUS #### [facility] [address] [place] [address] [place] WBC,Urine 1-2 Normal 0-4 [facility] Comment on above: Order Comment: Name Collection Type:: Clean-Voided Midstream Performed By: #### A DDONUAPLUS #### [facility] [address] [place] [address] ECG 12 lead ECGon 08-05-2022 ECG 12 lead ECG [facility] [place] [address] [place] [address] Electrocardiograph Report Signed Patient: Hiram Madrid MR#: [id number] : 1935 Acct:[id number] Age/Sex: 86 / F ADM Date: 08/05/22 Loc: ER Room: Type: [facility] ER Attending Dr: Ordering Provider: Camacho Ladd [...] branch block Confirmed by Camacho Ladd DO ([id number]) on 08/06/2022 1:49:12 AM Referred By: Electronically Signed By:Camacho Ladd DO Transcribed By: MUS Signed By Camacho Ladd DO [id number] Normal [facility] Eosinophils Auto (Bld) [#/Vo l]Ordered By: Camacho Ladd on 08-05-2022 Eosinophils (Bld) [#/Vol] 0.1 10*3/uL 0.0-0.45 [facility] Eosinophils/100 WBC Auto (Bl d)Ordered By: Camacho Ladd on 08-05-2022 Eosinophils/100 WBC (Bld) 0.6 % . [facility] Erythrocyte distribution wid th Auto (RBC) [Ratio]Ordered By: Camacho Ladd on 08-05-2022 Erythrocyte distribution width (RBC) [Ratio] 13.6 % 11.9-15.3 [facility] Globulin Calc (S) [Mass/Vol] Ordered By: Camacho Ladd on 08-05-2022 Globulin (S) [Mass/Vol] 2.9 g/dL [facility] Glucose [Mass/volume] in Ser um or PlasmaOrdered By: Camacho Ladd on 08-05-2022 Glucose [Mass/Vol] 156 mg/dL 70-100 [facility] Comment on above: ADA recommended refe rence rangeRandom Glucose Reference Range is dependent on time and content of last meal. Glucose of more than 200 mg/dL in a nonstressed, ambulatory subject supports the diagnosis of Diabetes Mellitus. Hematocrit Auto (Bld) [Volum e fraction]Ordered By: Camacho Ladd on 08-05-2022 Hematocrit (Bld) [Volume fraction] 37.3 % 34.0-46.4 [facility] Hemoglobin [Mass/volume] in BloodOrdered By: Camacho Ladd on 08-05-2022 Hemoglobin (Bld) [Mass/Vol] 13.0 g/dL 11.8-15.4 [facility] Hepatic Panelon 08-05-2022 Albumin [Mass/Vol] 4.4 g/dL Normal 3.5-5.7 [facility] Comment on above: Performed By: #### H S TROP, HEPATIC, LIPASE, CBC, BMP #### [facility] [address] Albumin/Globulin [Mass ratio] 1.5 {ratio} Normal [facility] Comment on above: Performed By: #### H S TROP, HEPATIC, LIPASE, CBC, BMP #### [facility] [address] ALP [Catalytic activity/Vol] 61 U/L Normal 34-104 [facility] Comment on above: Performed By: #### H S TROP, HEPATIC, LIPASE, CBC, BMP #### [facility] [address] [place] [address] [place] ALT [Catalytic activity/Vol] 16 U/L Normal 7-52 [facility] Comment on above: Performed By: #### H S TROP, HEPATIC, LIPASE, CBC, BMP #### [facility] [address] [place] [address] [place] AST [Catalytic activity/Vol] 21 U/L Normal 13-39 [facility] Comment on above: Performed By: #### H S TROP, HEPATIC, LIPASE, CBC, BMP #### [facility] [address] [place] [address] [place] Bilirubin [Mass/Vol] 0.7 mg/dL Normal 0.3-1.0 [facility] Comment on above: Performed By: #### H S TROP, HEPATIC, LIPASE, CBC, BMP #### [facility] [address] [place] [address] [place] Bilirubin,Indirect 0.6 mg/dL Normal [facility] Comment on above: Performed By: #### H S TROP, HEPATIC, LIPASE, CBC, BMP #### [facility] [address] [place] [address] [place] Bilirubin.indirect [Mass/Vol] 0.10 mg/dL Normal 0.03-0.18 [facility] Comment on above: Performed By: #### H S TROP, HEPATIC, LIPASE, CBC, BMP #### [facility] [address] Globulin (S) [Mass/Vol] 2.9 g/dL Normal [facility] Comment on above: Performed By: #### H S TROP, HEPATIC, LIPASE, CBC, BMP #### [facility] [address] Protein [Mass/Vol] 7.3 g/dL Normal 6.4-8.9 [facility] Comment on above: Performed By: #### H S TROP, HEPATIC, LIPASE, CBC, BMP #### [address] Ketones Auto test strip (U) [Mass/Vol]Ordered By: Camacho Ladd on 08-05-2022 Ketones (U) [Mass/Vol] Negative Negative [facility] Laboratory - UrinalysisOrder ed By: Camacho Ladd on 08-05-2022 Hyaline casts LM Ql (Urine sed) None seen [LPF] 0-8 [facility] Leukocytes [#/volume] correc sofiya for nucleated erythrocytes in Blood by Automated counOrdered By: Camacho Ladd on 08-05-2022 WBC corrected for nucl RBC Auto (Bld) [#/Vol] 14.2 10*3/uL 3.8-11.6 [facility] Lipaseon 08-05-2022 Lipase [Catalytic activity/Vol] 23.0 U/L Normal 11.0-82.0 [facility] Comment on above: Result Comment: PERF ORMED BY: [address] [place] [address] PATHOLOGIST HAT BLOCKING MACHINE OPERATOR GOSIA MCADAMS M.D. Performed By: #### H S TROP, HEPATIC, LIPASE, CBC, BMP #### [facility] [address] [place] [address] Lipase [Enzymatic activity/v olume] in Serum or PlasmaOrdered By: Camacho Ladd on 08-05-2022 Lipase [Catalytic activity/Vol] 23.0 U/L 11.0-82.0 [facility] Lymphocytes Auto (Bld) [#/Vo l]Ordered By: Camacho Ladd on 08-05-2022 Lymphocytes (Bld) [#/Vol] 3.1 10*3/uL 1.00-4.8 [facility] Lymphocytes/100 WBC Auto (Bl d)Ordered By: Camacho Ladd on 08-05-2022 Lymphocytes/100 WBC (Bld) 21.9 % . [facility] MCH Auto (RBC) [Entitic mass ]Ordered By: Camacho Ladd on 08-05-2022 MCH (RBC) [Entitic mass] 31.6 pg 24.7-34.3 [facility] MCHC Auto (RBC) [Mass/Vol]Or dered By: Camacho Ladd on 08-05-2022 MCHC (RBC) [Mass/Vol] 35.0 g/dL 32.0-35.0 [facility] MCV Auto (RBC) [Entitic vol] Ordered By: Camacho Ladd on 08-05-2022 MCV (RBC) [Entitic vol] 90.4 fL 80-100 [facility] Monocyte distribution width [Entitic volume] in Blood by AutomatedOrdered By: Camacho Ladd on 08-05-2022 Monocyte distribution width Auto (Bld) [Entitic vol] 20.58 % 0.00-20.00 [facility] Comment on above: For adults in ED, MD W > 20.0 may be associated with a higher risk of sepsis during the first 12 hrs of hospital admission Monocytes Auto (Bld) [#/Vol] Ordered By: Camacho Ladd on 08-05-2022 Monocytes (Bld) [#/Vol] 1.4 10*3/uL 0.0-0.8 [facility] Monocytes/100 WBC Auto (Bld) Ordered By: Camacho Ladd on 08-05-2022 Monocytes/100 WBC (Bld) 9.6 % . [facility] Neutrophils Auto (Bld) [#/Vo l]Ordered By: Camacho Ladd on 08-05-2022 Neutrophils (Bld) [#/Vol] 9.6 10*3/uL 1.8-7.7 [facility] Neutrophils/100 WBC Auto (Bl d)Ordered By: Camacho Ladd on 08-05-2022 Neutrophils/100 WBC (Bld) 67.5 % . [facility] Nitrite Test strip Ql (U)Ord ered By: Camacho Ladd on 08-05-2022 Nitrite Ql (U) Negative Negative [facility] No Panel InformationOrdered By: Camacho Ladd on 08-05-2022 Estimated GFR (CKD-EPI) 53.284 mL/Min [facility] Creatinine Clearance (Chem 35.13 [facility] Nucleated erythrocytes [Pres ence] in Blood by Automated countOrdered By: Camacho Ladd on 08-05-2022 Nucleated RBC Auto Ql (Bld) 0.1 /100{WBC} 0-0.5 [facility] Platelet mean volume Auto (B ld) [Entitic vol]Ordered By: Camacho Ladd on 08-05-2022 Platelet mean volume (Bld) [Entitic vol] 7.2 fL 6.3-10.7 [facility] Platelets Auto (Bld) [#/Vol] Ordered By: Camacho Ladd on 08-05-2022 Platelets (Bld) [#/Vol] 500 10*3/uL 150-450 [facility] Potassium [Moles/volume] in Serum or PlasmaOrdered By: Camacho Ladd on 08-05-2022 Potassium [Moles/Vol] 3.0 mmol/L 3.5-5.1 [facility] Protein Auto test strip (U) [Mass/Vol]Ordered By: Camacho Ladd on 08-05-2022 Protein (U) [Mass/Vol] Negative Negative [facility] Protein [Mass/volume] in Ser um or PlasmaOrdered By: Camacho Ladd on 08-05-2022 Protein [Mass/Vol] 7.3 g/dL 6.4-8.9 [facility] RBC Auto (Bld) [#/Vol]Ordere d By: Camacho Ladd on 06-16-2023 RBC (Bld) [#/Vol] 4.13 10*6/uL 3.60-5.00 [facility] Serum or plasma albumin/glob ulin mass ratioOrdered By: Camacho Ladd on 08-05-2022 Albumin/Globulin [Mass ratio] 1.5 {ratio} [facility] Serum or plasma anion gap de terminationOrdered By: Camacho Ladd on 08-05-2022 Anion gap [Moles/Vol] 17.8 mmol[facility]L [facility] or plasma non-glucuron idated bilirubin measurement (mass/volume)Ordered By: Camacho Ladd on 08-05-2022 Bilirubin.indirect [Mass/Vol] 0.6 mg/dL [facility] Sodium [Moles/volume] in Ser um or PlasmaOrdered By: Camacho Ladd on 08-05-2022 Sodium [Moles/Vol] 125 mmol/L 136-145 [facility] Specific gravity Auto test s trip (U) [Rel density]Ordered By: Camacho Ladd on 08-05-2022 Specific gravity (U) [Rel density] 1.009 1.001-1.030 [facility] Squamous epithelial cells de tection in urine sediment by light microscopyOrdered By: Camacho Ladd on 08-05-2022 Epithelial cells.squamous LM Ql (Urine sed) 0-1 [HPF] 0-2 [facility] Troponin I High Sensitivityo n 08-05-2022 Troponin I High Sensitivity 7.7 pg/mL Normal 0.0-15.0 [facility] Comment on above: Result Comment: PERF ORMED BY: [place] [address] PATHOLOGIST HAT BLOCKING MACHINE OPERATOR GOSIA MCADAMS M.D. Performed By: #### H S TROP, HEPATIC, LIPASE, CBC, BMP #### [address] Troponin I.cardiac [Mass/vol ume] in Serum or Plasma by Detection limit <= 0.01 ng/Ordered By: Camacho Ladd on 08-05-2022 Troponin I.cardiac DL <= 0.01 ng/mL [Mass/Vol] 7.7 pg/mL 0.0-15.0 [facility] Urea nitrogen [Mass/volume] in Serum or PlasmaOrdered By: Camacho Ladd on 08-05-2022 Urea nitrogen [Mass/Vol] 12 mg/dL 7-25 [facility] Urine bacteria detection by automated methodOrdered By: Camacho Ladd on 08-05-2022 Bacteria Auto Ql (U) None seen None Seen [facility] Urine clarity by refractomet ry automatedOrdered By: Camacho Ladd on 08-05-2022 Clarity Refractometry automated (U) Cloudy Clear [facility] Urine glucose measurement by automated test strip (mass/volume)Ordered By: Camacho Ladd on 08-05-2022 Glucose Auto test strip (U) [Mass/Vol] Normal mg/dL Normal [facility] Urine hemoglobin detection b y automated test stripOrdered By: Camacho Ladd on 08-05-2022 Hemoglobin Auto test strip Ql (U) Negative Negative [facility] Urine leukocyte esterase det ection by automated test stripOrdered By: Camacho Ladd on 08-05-2022 Leukocyte esterase Auto test strip Ql (U) 1+ Negative [facility] Urobilinogen Auto test strip (U) [Mass/Vol]Ordered By: Camacho Ladd on 08-05-2022 Urobilinogen (U) [Mass/Vol] Normal mg/dL Normal [facility] WBC Auto (Bld) [#/Vol]Ordere d By: Camacho Ladd on 08-05-2022 WBC (Bld) [#/Vol] 14.2 10*3/uL 3.8-11.6 [facility] pH Auto test strip (U)Ordere d By: Camacho Ladd on 08-05-2022 pH (U) 7.0 [pH] 5.0-9.0 [facility] BNPon 06-13-2022 Natriuretic peptide B (Bld) [Mass/Vol] 142.0 pg/mL Normal <=1,800.0 [facility] Comment on above: Performed By: #### T , BMP #### [facility] [address] [place] [address] Dr. Tasha Dodson CBC AUTO DIFFon 06-13-2022 BASO # 0.1 103/ul Normal 0.0-0.1 [facility] Comment on above: Performed By: #### T SH, BMP #### [facility] [address] [place] [address] Dr. Tasha Dodson Basophils/100 WBC (Bld) 1.0 % Normal 0.2-2.0 [facility] Comment on above: Performed By: #### T SH, BMP #### [facility] [address] [place] [address] Dr. Tasha Dodson EO # 0.3 103/ul Normal 0.0-0.7 [facility] Comment on above: Performed By: #### T SH, BMP #### [facility] [address] [place] [address] Dr. Tasha Dodson Eosinophils/100 WBC (Bld) 2.6 % Normal 0.9-7.0 [facility] Comment on above: Performed By: #### T SH, BMP #### [facility] [address] [place] [address] Dr. Tasha Dodson Erythrocyte distribution width (RBC) [Ratio] 13.4 % Normal 11.0-15.0 [facility] Comment on above: Performed By: #### T SH, BMP #### [facility] [address] [place] [address] Dr. Tasha Dodson Hematocrit (Bld) [Volume fraction] 39.5 % Normal 36.0-48.0 [facility] Comment on above: Performed By: #### T SH, BMP #### [facility] [address] [place] [address] Dr. Tasha Dodson Hemoglobin (Bld) [Mass/Vol] 13.1 g/dL Normal 12.0-16.0 [facility] Comment on above: Performed By: #### T SH, BMP #### [facility] [address] [place] [address] Dr. Tasha Dodson IG # 0.07 10e3/ul Critically high 0.00-0.03 [facility] Comment on above: Performed By: #### T SH, BMP #### [facility] [address] [address] [address] Tasha Ddoson IG % 0.6 % Critically high 0.0-0.5 [facility] Comment on above: Performed By: #### T SH, BMP #### [facility] [address] [address] [address] Tasha Dodson LYMPH # 2.5 103/ul Normal 1.2-3.8 [facility] Comment on above: Performed By: #### T SH, BMP #### [facility] [address] [address] [address] Tasha Dodson Lymphocytes/100 WBC (Bld) 22.9 % Normal 20.5-60.0 [facility] Comment on above: Performed By: #### T SH, BMP #### [facility] [address] [address] [address] Tasha Dodson MANUAL DIFF REQ NO Normal [facility] Comment on above: Performed By: #### T SH, BMP #### [facility] [address] [address] [address] Tasha Dodson MCH (RBC) [Entitic mass] 30.7 pg Normal 26.7-34.0 [facility] Comment on above: Performed By: #### T SH, BMP #### [facility] [address] [address] [address] Tasha Dodson MCHC (RBC) [Mass/Vol] 33.2 g/dL Normal 29.9-35.2 [facility] Comment on above: Performed By: #### T SH, BMP #### [facility] [address] [address] [address] Tasha Dodson MCV (RBC) [Entitic vol] 92.5 fL Normal 81.0-99.0 [facility] Comment on above: Performed By: #### T SH, BMP #### [facility] [address] [address] [address] Tasha Dodson MONO # 0.8 103/ul Normal 0.3-0.8 [facility] Comment on above: Performed By: #### T SH, BMP #### [facility] [address] [address] [address] Tasha Dodson Monocytes/100 WBC (Bld) 7.0 % Normal 1.7-12.0 [facility] Comment on above: Performed By: #### T SH, BMP #### [facility] [address] [place] [address] Dr. Tasha Dodson NEUT # 7.2 103/ul Critically high 1.4-6.5 [facility] Comment on above: Performed By: #### T SH, BMP #### [facility] [address] [place] [address] Dr. Tasha Dodson Neutrophils/100 WBC (Bld) 65.9 % Normal 43.0-75.0 [facility] Comment on above: Performed By: #### T SH, BMP #### [facility] [address] [place] [address] Dr. Tasha Dodson Platelet mean volume (Bld) [Entitic vol] 8.0 fL Critically low 9.5-13.5 [facility] Comment on above: Performed By: #### T SH, BMP #### [facility] [address] [place] [address] Dr. Tasha Dodson PLT 449 103/ul Normal 150-450 [facility] Comment on above: Performed By: #### T SH, BMP #### [facility] [address] [place] [address] Dr. Tasha Dodson RBC 4.27 106/ul Normal 4.20-5.40 [facility] Comment on above: Performed By: #### T SH, BMP #### [facility] [address] [place] [address] Dr. Tasha Dodson WBC 10.9 103/ul Normal 4.0-11.0 [facility] Comment on above: Performed By: #### T SH, BMP #### [facility] [address] [place] [address] Dr. Tasha Dodson FREE THYROXINE INDEX T7on FTI 3.67 Normal 1.30-4.50 [facility] Comment on above: Performed By: #### T SH, BMP #### [facility] [address] [place] [address] Dr. Tasha Dodson T3U 36.0 % Normal 30.0-39.0 [facility] Comment on above: Performed By: #### T SH, BMP #### [facility] [address] [place] [address] Dr. Tasha Dodson T4 [Mass/Vol] 10.20 ug/dL Normal 4.80-13.90 [facility] Comment on above: Performed By: #### T SH, BMP #### [facility] [address] [place] [address] Dr. Tasha Dodson PROF CHEM 8 (BAS METB)on Anion gap [Moles/Vol] 13.8 mmol/L Normal [facility] Comment on above: Performed By: #### T SH, BMP #### [facility] [address] [place] [address] Dr. Tasha Dodson Calcium [Mass/Vol] 9.8 mg/dL Normal 8.5-10.1 [facility] Comment on above: Performed By: #### T SH, BMP #### [facility] [address] [place] [address] Dr. Tasha Dodson Chloride [Moles/Vol] 95 mmol/L Critically low 98-107 [facility] Comment on above: Performed By: #### T SH, BMP #### [facility] [address] [place] [address] Dr. Tasha Dodson CO2 [Moles/Vol] 30.5 mmol/L Normal 21.0-32.0 [facility] Comment on above: Performed By: #### T SH, BMP #### [facility] [address] [place] [address] Dr. Tasha Dodson Creatinine [Mass/Vol] 0.78 mg/dL Normal 0.55-1.02 [facility] Comment on above: Performed By: #### T SH, BMP #### [facility] [address] [place] [address] Dr. Tasha Dodson EGFR-AF FILIPINO >60 Normal >=60 [facility] Comment on above: Performed By: #### T SH, BMP #### [facility] [address] [place] [address] Dr. Tasha Dodson EGFR-NON AF FILIPINO >60 Normal >=60 [facility] Comment on above: Performed By: #### T SH, BMP #### [facility] [address] [place] [address] Dr. Tasha Dodson Glucose [Mass/Vol] 108 mg/dL Critically high 74-106 [facility] Comment on above: Performed By: #### T SH, BMP #### [facility] [address] [place] [address] Dr. Tasha Dodson Potassium [Moles/Vol] 3.3 mmol/L Critically low 3.5-5.1 [facility] Comment on above: Performed By: #### T SH, BMP #### [facility] [address] [place] [address] Dr. Tasha Dodson Sodium [Moles/Vol] 136 mmol/L Normal 136-145 [facility] Comment on above: Performed By: #### T SH, BMP #### [facility] [address] [place] [address] Dr. Tasha Dodson Urea nitrogen [Mass/Vol] 11.0 mg/dL Normal 7.0-18.0 [facility] Comment on above: Performed By: #### T SH, BMP #### [facility] [address] [place] [address] Dr. Tasha Dodson Urea nitrogen/Creatinine [Mass ratio] 14.1 mg/mg Normal [facility] Comment on above: Performed By: #### T SH, BMP #### [facility] [address] [place] [address] Dr. Tasha Dodson TSHon 06-13-2022 TSH 2.583 uIU/mL Normal 0.358-3.740 [facility] Comment on above: Performed By: #### T SH, BMP #### [facility] [address] [place] [address] Dr. Tasha Dodson UA (CLEAN/CATCH) ANTENNA ENGINEER/MICRO I F IND.on 06-13-2022 Bilirubin Ql (U) Negative Normal NEGATIVE [facility] Comment on above: Performed By: #### T SH, BMP #### [facility] [address] [place] [address] Dr. Tasha Dodson Clarity (U) CLEAR Normal CLEAR [facility] Comment on above: Performed By: #### T SH, BMP #### [facility] [address] [place] [address] Dr. Tasha Dodson Color (U) LT. YELLOW Normal YELLOW [facility] Comment on above: Performed By: #### T SH, BMP #### [facility] [address] [place] [address] Dr. Tasha Dodson Glucose Ql (U) Negative Normal NEGATIVE [facility] Comment on above: Performed By: #### T SH, BMP #### [facility] [address] [place] [address] Dr. Tasha Dodson Hemoglobin Ql (U) Negative Normal NEGATIVE [facility] Comment on above: Performed By: #### T SH, BMP #### [facility] [address] [place] [address] Dr. Tsaha Dodson Ketones Ql (U) Negative Normal NEGATIVE [facility] Comment on above: Performed By: #### T SH, BMP #### [facility] [address] [place] [address] Dr. Tasha Dodson LEUKOCYTES Negative Normal NEGATIVE [facility] Comment on above: Performed By: #### T SH, BMP #### [facility] [address] [place] [address] Dr. Tasha Dodson Nitrite Ql (U) Negative Normal NEGATIVE [facility] Comment on above: Performed By: #### T SH, BMP #### [facility] [address] [place] [address] Dr. Tasha Dodson pH (U) 7.0 [pH] Normal 5-9 [facility] Comment on above: Performed By: #### T SH, BMP #### [facility] [address] [place] [address] Dr. Tasha Dodson SPEC GRAVITY 1.010 Normal 1.005-<=1.0 25 [facility] Comment on above: Performed By: #### T SH, BMP #### [facility] [address] [place] [address] Dr. Tasha Dodson UA PROTEIN Negative Normal NEGATIVE/ TRACE [facility] Comment on above: Performed By: #### T SH, BMP #### [facility] [address] [place] [address] Dr. Tasha Dodson UR MICRO IND NOT INDICATED Normal [facility] Comment on above: Performed By: #### T SH, BMP #### [facility] [address] [place] [address] Dr. Tasha oDdson Urobilinogen Qn (U) 0.2 {Juan'U}/dL Normal 0.2 - 1. 0 [facility] Comment on above: Performed By: #### T JESI, BMP #### [facility] [address] [place] [address] Dr. Tasha Dodson ECHOCARDIO M/2D COMPLETEon 0 04-18-2022 ECHOCARDIO M/2D COMPLETE Patient: HIRAM MADRID Exam Date: 04/18/2022 : 1935 Gender:F Ordering : DR VALERIE DARDEN M.D. Admission #: [id number] Family : DR ADDY DANIELS . Order #: [id number] CLICK HERE TO VIEW EXAM ECHOCARDIOGRAM REPORT [...] Barragan M.D. on 04/19/2022 at 18:55 Normal [facility] Office Visiton 04-04-2022 Follow-up visit [id number] Hiram Madrid 1935 F Date Provider Department Center 04/04/2022 Yazmin-VALERIE DARDEN [facility] Family History Problem Relation Age of Onset Hypertension Mother Lupus Mother Coronary artery disease Mother Heart attack Mother Hypertension Father Aneurysm Father Coronary artery disease Father Hypertension Sister Lupus Sister Family Status - Relation Status Age at Mother Father Sister Level of Service:24717 CT OFFICE/OUTPATIENT ESTABLISHED MOD MDM 30-39 MIN Reason for Visit and Comments: Hyperlipidemia [182] Hypertension [868835] carotid artery stenosis [Other] 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 Tasha Dodson Basophils/100 WBC (Bld) 0.6 % Normal 0.2-2.0 [facility] Comment on above: Performed By: #### C BC #### [facility] [address] [address] [address] Tasha Dodson EO # 0.1 103/ul Normal 0.0-0.7 [facility] Comment on above: Performed By: #### C BC #### [facility] [address] [place] [address] Dr. Tasha Dodson Eosinophils/100 WBC (Bld) 0.9 % Normal 0.9-7.0 [facility] Comment on above: Performed By: #### C BC #### [facility] [address] [place] [address] Dr. Tasha Dodson Erythrocyte distribution width (RBC) [Ratio] 13.0 % Normal 11.0-15.0 [facility] Comment on above: Performed By: #### C BC #### [facility] [address] [place] [address] Dr. Tasha Dodson Hematocrit (Bld) [Volume fraction] 38.5 % Normal 36.0-48.0 [facility] Comment on above: Performed By: #### C BC #### [facility] [address] [place] [address] Dr. Tasha Dodson Hemoglobin (Bld) [Mass/Vol] 13.4 g/dL Normal 12.0-16.0 [facility] Comment on above: Performed By: #### C BC #### [facility] [address] [place] [address] Dr. Tasha Dodson IG # 0.07 10e3/ul Critically high 0.00-0.03 [facility] Comment on above: Performed By: #### C BC #### [facility] [address] [place] [address] Dr. Tasha Dodson IG % 0.5 % Normal 0.0-0.5 [facility] Comment on above: Performed By: #### C BC #### [facility] [address] [place] [address] Dr. Tasha Dodson LYMPH # 2.8 103/ul Normal 1.2-3.8 [facility] Comment on above: Performed By: #### C BC #### [facility] [address] [place] [address] Dr. Tasha Dodson Lymphocytes/100 WBC (Bld) 20.5 % Normal 20.5-60.0 [facility] Comment on above: Performed By: #### C BC #### [facility] [address] [place] [address] Dr. Tasha Dodson MANUAL DIFF REQ NO Normal [facility] Comment on above: Performed By: #### C BC #### [facility] [address] [place] [address] Dr. Tasha Dodson MCH (RBC) [Entitic mass] 30.7 pg Normal 26.7-34.0 [facility] Comment on above: Performed By: #### C BC #### [facility] [address] [place] [address] Dr. Tasha Dodson MCHC (RBC) [Mass/Vol] 34.8 g/dL Normal 29.9-35.2 [facility] Comment on above: Performed By: #### C BC #### [facility] [address] [place] [address] Dr. Tasha Dodson MCV (RBC) [Entitic vol] 88.3 fL Normal 81.0-99.0 [facility] Comment on above: Performed By: #### C BC #### [facility] [address] [place] [address] Dr. Tasha Dodson MONO # 1.0 103/ul Critically high 0.3-0.8 [facility] Comment on above: Performed By: #### C BC #### [facility] [address] [place] [address] Dr. Tasha Dodson Monocytes/100 WBC (Bld) 7.4 % Normal 1.7-12.0 [facility] Comment on above: Performed By: #### C BC #### [facility] [address] [place] [address] Dr. Tasha Dodson NEUT # 9.5 103/ul Critically high 1.4-6.5 [facility] Comment on above: Performed By: #### C BC #### [facility] [address] [place] [address] Dr. Tasha Dodson Neutrophils/100 WBC (Bld) 70.1 % Normal 43.0-75.0 [facility] Comment on above: Performed By: #### C BC #### [facility] [address] [address] [address] Tasha Dodson Platelet mean volume (Bld) [Entitic vol] 8.0 fL Critically low 9.5-13.5 [facility] Comment on above: Performed By: #### C BC #### [facility] [address] [place] [address] Dr. Tasha Dodson PLT 492 103/ul Critically high 150-450 [facility] Comment on above: Performed By: #### C BC #### [facility] [address] [place] [address] Dr. Tasha Dodson RBC 4.36 106/ul Normal 4.20-5.40 [facility] Comment on above: Performed By: #### C BC #### [facility] [address] [place] [address] Dr. Tasha Dodson WBC 13.5 103/ul Critically high 4.0-11.0 [facility] Comment on above: Performed By: #### C BC #### [facility] [address] [place] [address] Dr. Tasha Dodson PROF 14(COMP METB)on 01-04- 022 Albumin [Mass/Vol] 3.8 g/dL Normal 3.4-5.0 [facility] Comment on above: Performed By: #### T SH, BMP #### [facility] [address] [place] [address] Dr. Tasha Dodson Albumin/Globulin [Mass ratio] 0.9 {ratio} Normal [facility] Comment on above: Performed By: #### T SH, BMP #### [facility] [address] [place] [address] Dr. Tasha Dodson ALP [Catalytic activity/Vol] 60 U/L Normal 46-116 [facility] Comment on above: Performed By: #### T SH, BMP #### [facility] [address] [place] [address] Dr. Tasha Dodson ALT [Catalytic activity/Vol] 26 U/L Normal 14-59 [facility] Comment on above: Performed By: #### T SH, BMP #### [facility] [address] [address] [address] Tasha Dodson Anion gap [Moles/Vol] 8.4 mmol/L Normal [facility] Comment on above: Performed By: #### T SH, BMP #### [facility] [address] [address] [address] Tasha Dodson AST [Catalytic activity/Vol] 19 U/L Normal 15-37 [facility] Comment on above: Performed By: #### T SH, BMP #### [facility] [address] [place] [address] Dr. Tasha Dodson Bilirubin [Mass/Vol] 0.4 mg/dL Normal 0.2-1.0 [facility] Comment on above: Performed By: #### T SH, BMP #### [facility] [address] [place] [address] Dr. Tasha Dodson Calcium [Mass/Vol] 10.1 mg/dL Normal 8.5-10.1 [facility] Comment on above: Performed By: #### T SH, BMP #### [facility] [address] [place] [address] Dr. Tasha Dodson Chloride [Moles/Vol] 92 mmol/L Critically low 98-107 [facility] Comment on above: Performed By: #### T SH, BMP #### [facility] [address] [place] [address] Dr. Tasha Dodson CO2 [Moles/Vol] 33.8 mmol/L Critically high 21.0-32.0 [facility] Comment on above: Performed By: #### T SH, BMP #### [facility] [address] [place] [address] Dr. Tasha Dodson Creatinine [Mass/Vol] 0.67 mg/dL Normal 0.55-1.02 [facility] Comment on above: Performed By: #### T SH, BMP #### [facility] [address] [place] [address] Dr. Tasha Dodson EGFR-AF FILIPINO >60 Normal >=60 [facility] Comment on above: Performed By: #### T SH, BMP #### [facility] [address] [address] [address] Tasha Dodson EGFR-NON AF FILIPINO >60 Normal >=60 [facility] Comment on above: Performed By: #### T SH, BMP #### [facility] [address] [address] [address] Tasha Dodson Globulin (S) [Mass/Vol] 4.1 g/dL Normal [facility] Comment on above: Performed By: #### T SH, BMP #### [facility] [address] [place] [address] Dr. Tasha Dodson Glucose [Mass/Vol] 106 mg/dL Normal 74-106 [facility] Comment on above: Performed By: #### T SH, BMP #### [facility] [address] [place] [address] Dr. Tasha Dodson Potassium [Moles/Vol] 3.2 mmol/L Critically low 3.5-5.1 [facility] Comment on above: Performed By: #### T JESI, BMP #### [facility] [address] [place] [address] Dr. Tasha Dodson Protein [Mass/Vol] 7.9 g/dL Normal 6.4-8.2 [facility] Comment on above: Performed By: #### T JESI, BMP #### [facility] [address] [place] [address] Dr. Tasha Dodson Sodium [Moles/Vol] 131 mmol/L Critically low 136-145 [facility] Comment on above: Performed By: #### T SH, BMP #### [facility] [address] [place] [address] Dr. Tasha Dodson Urea nitrogen [Mass/Vol] 10.0 mg/dL Normal 7.0-18.0 [facility] Comment on above: Performed By: #### T SH, BMP #### [facility] [address] [place] [address] Dr. Tasha Dodson Urea nitrogen/Creatinine [Mass ratio] 14.9 mg/mg Normal [facility] Comment on above: Performed By: #### T JESI, BMP #### [facility] [address] [place] [address] Dr. Tasha Dodson CBC AUTO DIFFon 12-29-2021 BASO # 0.1 103/ul Normal 0.0-0.1 [facility] Comment on above: Performed By: #### C BC #### [facility] [address] [place] [address] Dr. Tasha Dodson Basophils/100 WBC (Bld) 0.5 % Normal 0.2-2.0 [facility] Comment on above: Performed By: #### C BC #### [facility] [address] [place] [address] Dr. Tasha Dodson EO # 0.1 103/ul Normal 0.0-0.7 [facility] Comment on above: Performed By: #### C BC #### [facility] [address] [place] [address] Dr. Tasha Dodson Eosinophils/100 WBC (Bld) 0.4 % Critically low 0.9-7.0 [facility] Comment on above: Performed By: #### C BC #### [facility] [address] [place] [address] Dr. Tasha Dodson Erythrocyte distribution width (RBC) [Ratio] 13.0 % Normal 11.0-15.0 [facility] Comment on above: Performed By: #### C BC #### [facility] [address] [place] [address] Dr. Tasha Dodson Hematocrit (Bld) [Volume fraction] 34.0 % Critically low 36.0-48.0 [facility] Comment on above: Performed By: #### C BC #### [facility] [address] [place] [address] Dr. Tasha Dodson Hemoglobin (Bld) [Mass/Vol] 12.0 g/dL Normal 12.0-16.0 [facility] Comment on above: Performed By: #### C BC #### [facility] [address] [place] [address] Dr. Tasha Dodson IG # 0.06 10e3/ul Critically high 0.00-0.03 [facility] Comment on above: Performed By: #### C BC #### [facility] [address] [address] [address] Tasha Dodson IG % 0.4 % Normal 0.0-0.5 [facility] Comment on above: Performed By: #### C BC #### [facility] [address] [place] [address] Dr. Tasha Dodson LYMPH # 2.5 103/ul Normal 1.2-3.8 [facility] Comment on above: Performed By: #### C BC #### [facility] [address] [place] [address] Dr. Tasha Dodson Lymphocytes/100 WBC (Bld) 17.4 % Critically low 20.5-60.0 [facility] Comment on above: Performed By: #### C BC #### [facility] [address] [place] [address] Dr. Tasha Dodson MANUAL DIFF REQ NO Normal [facility] Comment on above: Performed By: #### C BC #### [facility] [address] [place] [address] Dr. Tasha Dodson MCH (RBC) [Entitic mass] 31.0 pg Normal 26.7-34.0 [facility] Comment on above: Performed By: #### C BC #### [facility] [address] [place] [address] Dr. Tasha Dodson MCHC (RBC) [Mass/Vol] 35.3 g/dL Critically high 29.9-35.2 [facility] Comment on above: Performed By: #### C BC #### [facility] [address] [place] [address] Dr. Tasha Dodson MCV (RBC) [Entitic vol] 87.9 fL Normal 81.0-99.0 [facility] Comment on above: Performed By: #### C BC #### [facility] [address] [place] [address] Dr. Tasha Dodson MONO # 1.0 103/ul Critically high 0.3-0.8 [facility] Comment on above: Performed By: #### C BC #### [facility] [address] [address] [address] Tasha Dodson Monocytes/100 WBC (Bld) 6.9 % Normal 1.7-12.0 [facility] Comment on above: Performed By: #### C BC #### [facility] [address] [address] [address] Tasha Dodson NEUT # 10.8 103/ul Critically high 1.4-6.5 [facility] Comment on above: Performed By: #### C BC #### [facility] [address] [address] [address] Tasha Dodson Neutrophils/100 WBC (Bld) 74.4 % Normal 43.0-75.0 [facility] Comment on above: Performed By: #### C BC #### [facility] [address] [place] [address] Dr. Tasha Dodson Platelet mean volume (Bld) [Entitic vol] 8.4 fL Critically low 9.5-13.5 [facility] Comment on above: Performed By: #### C BC #### [facility] [address] [place] [address] Dr. Tasha Dodson PLT 370 103/ul Normal 150-450 [facility] Comment on above: Performed By: #### C BC #### [facility] [address] [place] [address] Dr. Tasha Dodson RBC 3.87 106/ul Critically low 4.20-5.40 [facility] Comment on above: Performed By: #### C BC #### [facility] [address] [place] [address] Dr. Tasha Dodson WBC 14.5 103/ul Critically high 4.0-11.0 [facility] Comment on above: Performed By: #### C BC #### [facility] [address] [place] [address] Dr. Tasha Dodson PROF 14(COMP METB)on 022 Albumin [Mass/Vol] 2.8 g/dL Critically low 3.4-5.0 [facility] Comment on above: Performed By: #### T SH, BMP #### [facility] [address] [place] [address] Dr. Tasha Dodson Albumin/Globulin [Mass ratio] 0.9 {ratio} Normal [facility] Comment on above: Performed By: #### T SH, BMP #### [facility] [address] [place] [address] Dr. Tasha Dodson ALP [Catalytic activity/Vol] 51 U/L Normal 46-116 [facility] Comment on above: Performed By: #### T SH, BMP #### [facility] [address] [address] [address] Tasha Dodson ALT [Catalytic activity/Vol] 15 U/L Normal 14-59 [facility] Comment on above: Performed By: #### T SH, BMP #### [facility] [address] [place] [address] Dr. Tasha Dodson Anion gap [Moles/Vol] 9.7 mmol/L Normal [facility] Comment on above: Performed By: #### T SH, BMP #### [facility] [address] [place] [address] Dr. Tasha Dodson AST [Catalytic activity/Vol] 15 U/L Normal 15-37 [facility] Comment on above: Performed By: #### T SH, BMP #### [facility] [address] [place] [address] Dr. Tasha Dodson Bilirubin [Mass/Vol] 0.4 mg/dL Normal 0.2-1.0 [facility] Comment on above: Performed By: #### T SH, BMP #### [facility] [address] [place] [address] Dr. Tasha Dodson Calcium [Mass/Vol] 8.6 mg/dL Normal 8.5-10.1 [facility] Comment on above: Performed By: #### T SH, BMP #### [facility] [address] [place] [address] Dr. Tasha Dodson Chloride [Moles/Vol] 97 mmol/L Critically low 98-107 [facility] Comment on above: Performed By: #### T SH, BMP #### [facility] [address] [address] [address] Tasha Dodson CO2 [Moles/Vol] 25.8 mmol/L Normal 21.0-32.0 [facility] Comment on above: Performed By: #### T SH, BMP #### [facility] [address] [address] [address] Tasha Dodson Creatinine [Mass/Vol] 0.52 mg/dL Critically low 0.55-1.02 [facility] Comment on above: Performed By: #### T SH, BMP #### [facility] [address] [place] [address] Dr. Tasha Dodson EGFR-AF FILIPINO >60 Normal >=60 [facility] Comment on above: Performed By: #### T SH, BMP #### [facility] [address] [place] [address] Dr. Tasha Dodson EGFR-NON AF FILIPINO >60 Normal >=60 [facility] Comment on above: Performed By: #### T SH, BMP #### [facility] [address] [place] [address] Dr. Tasha Dodson Globulin (S) [Mass/Vol] 3.2 g/dL Normal [facility] Comment on above: Performed By: #### T SH, BMP #### [facility] [address] [place] [address] Dr. Tasha oDdson Glucose [Mass/Vol] 117 mg/dL Critically high 74-106 [facility] Comment on above: Performed By: #### T SH, BMP #### [facility] [address] [place] [address] Dr. Tasha Dodson Potassium [Moles/Vol] 3.5 mmol/L Normal 3.5-5.1 [facility] Comment on above: Performed By: #### T SH, BMP #### [facility] [address] [place] [address] Dr. Tasha Dodson Protein [Mass/Vol] 6.0 g/dL Critically low 6.4-8.2 [facility] Comment on above: Performed By: #### T SH, BMP #### [facility] [address] [place] [address] Dr. Tasha Dodson Sodium [Moles/Vol] 129 mmol/L Critically low 136-145 [facility] Comment on above: Performed By: #### T JESI, BMP #### [facility] [address] [place] [address] Dr. Tasha Dodson Urea nitrogen [Mass/Vol] 4.0 mg/dL Critically low 7.0-18.0 [facility] Comment on above: Performed By: #### T JESI, BMP #### [facility] [address] [place] [address] Dr. Tasha Dodson Urea nitrogen/Creatinine [Mass ratio] 7.7 mg/mg Normal [facility] Comment on above: Performed By: #### T JESI, BMP #### [facility] [address] [place] [address] Dr. Tasha Dodson CBC AUTO DIFFon 12-28-2021 BASO # 0.1 103/ul Normal 0.0-0.1 [facility] Comment on above: Performed By: #### C BC #### [facility] [address] [place] [address] Dr. Tasha Dodson Basophils/100 WBC (Bld) 0.4 % Normal 0.2-2.0 [facility] Comment on above: Performed By: #### C BC #### [facility] [address] [place] [address] Dr. Tasha Dodson EO # 0.1 103/ul Normal 0.0-0.7 [facility] Comment on above: Performed By: #### C BC #### [facility] [address] [place] [address] Dr. Tasha Dodson Eosinophils/100 WBC (Bld) 0.4 % Critically low 0.9-7.0 [facility] Comment on above: Performed By: #### C BC #### [facility] [address] [place] [address] Dr. Tasha Dodson Erythrocyte distribution width (RBC) [Ratio] 12.9 % Normal 11.0-15.0 [facility] Comment on above: Performed By: #### C BC #### [facility] [address] [place] [address] Dr. Tasha Dodson Hematocrit (Bld) [Volume fraction] 34.2 % Critically low 36.0-48.0 [facility] Comment on above: Performed By: #### C BC #### [facility] [address] [place] [address] Dr. Tasha Dodson Hemoglobin (Bld) [Mass/Vol] 12.4 g/dL Normal 12.0-16.0 [facility] Comment on above: Performed By: #### C BC #### [facility] [address] [place] [address] Dr. Tasha Dodson IG # 0.09 10e3/ul Critically high 0.00-0.03 [facility] Comment on above: Performed By: #### C BC #### [facility] [address] [place] [address] Dr. Tasha Dodson IG % 0.6 % Critically high 0.0-0.5 [facility] Comment on above: Performed By: #### C BC #### [facility] [address] [place] [address] Dr. Tasha Dodson LYMPH # 2.2 103/ul Normal 1.2-3.8 [facility] Comment on above: Performed By: #### C BC #### [facility] [address] [place] [address] Dr. Tasha Dodson Lymphocytes/100 WBC (Bld) 13.6 % Critically low 20.5-60.0 [facility] Comment on above: Performed By: #### C BC #### [facility] [address] [place] [address] Dr. Tasha Dodson MANUAL DIFF REQ NO Normal [facility] Comment on above: Performed By: #### C BC #### [facility] [address] [place] [address] Dr. Tasha Dodson MCH (RBC) [Entitic mass] 31.2 pg Normal 26.7-34.0 [facility] Comment on above: Performed By: #### C BC #### [facility] [address] [address] [address] Tasha Dodson MCHC (RBC) [Mass/Vol] 36.3 g/dL Critically high 29.9-35.2 [facility] Comment on above: Performed By: #### C BC #### [facility] [address] [address] [address] Tasha Dodson MCV (RBC) [Entitic vol] 85.9 fL Normal 81.0-99.0 [facility] Comment on above: Performed By: #### C BC #### [facility] [address] [address] [address] Tasha Dodson MONO # 1.3 103/ul Critically high 0.3-0.8 [facility] Comment on above: Performed By: #### C BC #### [facility] [address] [place] [address] Dr. Tasha Dodson Monocytes/100 WBC (Bld) 7.8 % Normal 1.7-12.0 [facility] Comment on above: Performed By: #### C BC #### [facility] [address] [address] [address] Tasha Dodson NEUT # 12.4 103/ul Critically high 1.4-6.5 [facility] Comment on above: Performed By: #### C BC #### [facility] [address] [place] [address] Dr. Tasha Dodson Neutrophils/100 WBC (Bld) 77.2 % Critically high 43.0-75.0 [facility] Comment on above: Performed By: #### C BC #### [facility] [address] [address] [address] Tasha Dodson Platelet mean volume (Bld) [Entitic vol] 8.6 fL Critically low 9.5-13.5 [facility] Comment on above: Performed By: #### C BC #### [facility] [address] [place] [address] Dr. Tasha Dodson PLT 385 103/ul Normal 150-450 [facility] Comment on above: Performed By: #### C BC #### [facility] [address] [address] [address] Tasha Dodson RBC 3.98 106/ul Critically low 4.20-5.40 [facility] Comment on above: Performed By: #### C BC #### [facility] [address] [address] [address] Tasha Dodson WBC 16.1 103/ul Critically high 4.0-11.0 [facility] Comment on above: Performed By: #### C BC #### [facility] [address] [place] [address] Dr. Tasha Dodson PROF 14(COMP METB)on 022 Albumin [Mass/Vol] 3.2 g/dL Critically low 3.4-5.0 [facility] Comment on above: Performed By: #### T SH, BMP #### [facility] [address] [place] [address] Dr. Tasha Dodson Albumin/Globulin [Mass ratio] 1.0 {ratio} Normal [facility] Comment on above: Performed By: #### T SH, BMP #### [facility] [address] [place] [address] Dr. Tasha Dodson ALP [Catalytic activity/Vol] 51 U/L Normal 46-116 [facility] Comment on above: Performed By: #### T SH, BMP #### [facility] [address] [place] [address] Dr. Tasha Dodson ALT [Catalytic activity/Vol] 17 U/L Normal 14-59 [facility] Comment on above: Performed By: #### T SH, BMP #### [facility] [address] [place] [address] Dr. Tasha Dodson Anion gap [Moles/Vol] 10.5 mmol/L Normal [facility] Comment on above: Performed By: #### T SH, BMP #### [facility] [address] [place] [address] Dr. Tasha Dodson AST [Catalytic activity/Vol] 18 U/L Normal 15-37 [facility] Comment on above: Performed By: #### T SH, BMP #### [facility] [address] [address] [address] Tasha Dodson Bilirubin [Mass/Vol] 0.4 mg/dL Normal 0.2-1.0 [facility] Comment on above: Performed By: #### T SH, BMP #### [facility] [address] [place] [address] Dr. Tasha Dodson Calcium [Mass/Vol] 8.3 mg/dL Critically low 8.5-10.1 [facility] Comment on above: Performed By: #### T SH, BMP #### [facility] [address] [place] [address] Dr. Tasha Dodson Chloride [Moles/Vol] 96 mmol/L Critically low 98-107 [facility] Comment on above: Performed By: #### T SH, BMP #### [facility] [address] [place] [address] Dr. Tasha Dodson CO2 [Moles/Vol] 24.5 mmol/L Normal 21.0-32.0 [facility] Comment on above: Performed By: #### T SH, BMP #### [facility] [address] [place] [address] Dr. Tasha Dodson Creatinine [Mass/Vol] 0.54 mg/dL Critically low 0.55-1.02 [facility] Comment on above: Performed By: #### T SH, BMP #### [facility] [address] [place] [address] Dr. Tasha Dodson EGFR-AF FILIPINO >60 Normal >=60 [facility] Comment on above: Performed By: #### T SH, BMP #### [facility] [address] [place] [address] Dr. Tasha Dodson EGFR-NON AF FILIPINO >60 Normal >=60 [facility] Comment on above: Performed By: #### T SH, BMP #### [facility] [address] [place] [address] Dr. Tasha Dodson Globulin (S) [Mass/Vol] 3.1 g/dL Normal [facility] Comment on above: Performed By: #### T SH, BMP #### [facility] [address] [place] [address] Dr. Tasha Dodson Glucose [Mass/Vol] 123 mg/dL Critically high 74-106 [facility] Comment on above: Performed By: #### T , BMP #### [facility] [address] [place] [address] Dr. Tasha Dodson Potassium [Moles/Vol] 3.0 mmol/L Critically low 3.5-5.1 [facility] Comment on above: Performed By: #### T , BMP #### [facility] [address] [place] [address] Dr. Tasha Dodson Protein [Mass/Vol] 6.3 g/dL Critically low 6.4-8.2 [facility] Comment on above: Performed By: #### T , BMP #### [facility] [address] [place] [address] Dr. Tasha Dodson Sodium [Moles/Vol] 128 mmol/L Critically low 136-145 [facility] Comment on above: Performed By: #### T , BMP #### [facility] [address] [place] [address] Dr. Tasha Dodson Urea nitrogen [Mass/Vol] 5.0 mg/dL Critically low 7.0-18.0 [facility] Comment on above: Performed By: #### T , BMP #### [facility] [address] [place] [address] Dr. Tasha Dodson Urea nitrogen/Creatinine [Mass ratio] 9.3 mg/mg Normal [facility] Comment on above: Performed By: #### T , BMP #### [facility] [address] [place] [address] Dr. Tasha Dodson SODIUM RANDOM URINEon 2021 Sodium (U) [Moles/Vol] 135 mmol/L Critically high 30-90 [facility] Comment on above: Performed By: #### C BC #### [facility] [address] [place] [address] Dr. Tasha Dodson CBC AUTO DIFFon 12-27-2021 BASO # 0.0 103/ul Normal 0.0-0.1 [facility] Comment on above: Performed By: #### C BC #### [facility] [address] [place] [address] Dr. Tasha Dodson Basophils/100 WBC (Bld) 0.2 % Normal 0.2-2.0 [facility] Comment on above: Performed By: #### C BC #### [facility] [address] [place] [address] Dr. Tasha Dodson EO # 0.3 103/ul Normal 0.0-0.7 [facility] Comment on above: Performed By: #### C BC #### [facility] [address] [place] [address] Dr. Tasha Dodson Eosinophils/100 WBC (Bld) 2.3 % Normal 0.9-7.0 [facility] Comment on above: Performed By: #### C BC #### [facility] [address] [place] [address] Dr. Tasha Dodson Erythrocyte distribution width (RBC) [Ratio] 12.4 % Normal 11.0-15.0 [facility] Comment on above: Performed By: #### C BC #### [facility] [address] [place] [address] Dr. Tasha Dodson Hematocrit (Bld) [Volume fraction] 35.4 % Critically low 36.0-48.0 [facility] Comment on above: Performed By: #### C BC #### [facility] [address] [place] [address] Dr. Tasha Dodson Hemoglobin (Bld) [Mass/Vol] 12.9 g/dL Normal 12.0-16.0 [facility] Comment on above: Performed By: #### C BC #### [facility] [address] [place] [address] Dr. Tasha Dodson IG # 0.06 10e3/ul Critically high 0.00-0.03 [facility] Comment on above: Performed By: #### C BC #### [facility] [address] [place] [address] Dr. Tasha Dodson IG % 0.5 % Normal 0.0-0.5 [facility] Comment on above: Performed By: #### C BC #### [facility] [address] [address] [address] Tasha Dodson LYMPH # 2.0 103/ul Normal 1.2-3.8 [facility] Comment on above: Performed By: #### C BC #### [facility] [address] [address] [address] Tasha Dodson Lymphocytes/100 WBC (Bld) 15.7 % Critically low 20.5-60.0 [facility] Comment on above: Performed By: #### C BC #### [facility] [address] [place] [address] Dr. Tasha Dodson MANUAL DIFF REQ NO Normal [facility] Comment on above: Performed By: #### C BC #### [facility] [address] [place] [address] Dr. Tasha Dodson MCH (RBC) [Entitic mass] 31.0 pg Normal 26.7-34.0 [facility] Comment on above: Performed By: #### C BC #### [facility] [address] [place] [address] Dr. Tasha Dodson MCHC (RBC) [Mass/Vol] 36.4 g/dL Critically high 29.9-35.2 [facility] Comment on above: Performed By: #### C BC #### [facility] [address] [place] [address] Dr. Tasha Dodson MCV (RBC) [Entitic vol] 85.1 fL Normal 81.0-99.0 [facility] Comment on above: Performed By: #### C BC #### [facility] [address] [place] [address] Dr. Tasha Dodson MONO # 1.1 103/ul Critically high 0.3-0.8 [facility] Comment on above: Performed By: #### C BC #### [facility] [address] [place] [address] Dr. Tasha Dodson Monocytes/100 WBC (Bld) 8.3 % Normal 1.7-12.0 [facility] Comment on above: Performed By: #### C BC #### [facility] [address] [address] [address] Tasha Dodson NEUT # 9.5 103/ul Critically high 1.4-6.5 [facility] Comment on above: Performed By: #### C BC #### [facility] [address] [id number] [address] Tasha Dodson Neutrophils/100 WBC (Bld) 73.0 % Normal 43.0-75.0 [facility] Comment on above: Performed By: #### C BC #### [facility] [address] [address] [address] Tasha Dodson Platelet mean volume (Bld) [Entitic vol] 8.3 fL Critically low 9.5-13.5 [facility] Comment on above: Performed By: #### C BC #### [facility] [address] [address] [address] Tasha Dodson PLT 408 103/ul Normal 150-450 [facility] Comment on above: Performed By: #### C BC #### [facility] [address] [address] [address] Tasha Dodson RBC 4.16 106/ul Critically low 4.20-5.40 [facility] Comment on above: Performed By: #### C BC #### [facility] [address] [id number] Tasha Dodson WBC 13.0 103/ul Critically high 4.0-11.0 [facility] Comment on above: Performed By: #### C BC #### [facility] [address] [id number] Tasha Dodson CULTURE SPUTUMon 12-27-2021 CULTURE SPUTUM Culture Observations : NORMAL RESPIRATORY AMADOU. Normal [facility] Comment on above: Performed By: #### C BC #### [facility] [address] [address] [address] Tasha Dodson PROF 14(COMP METB)on 022 Albumin [Mass/Vol] 3.4 g/dL Normal 3.4-5.0 [facility] Comment on above: Performed By: #### C MADM, LIPA, BNP, CMP #### [facility] [address] [place] [address] Dr. Tasha Dodson Albumin/Globulin [Mass ratio] 1.0 {ratio} Normal [facility] Comment on above: Performed By: #### C MADM, LIPA, BNP, CMP #### [facility] [address] [place] [address] Dr. Tasha Dodson ALP [Catalytic activity/Vol] 54 U/L Normal 46-116 [facility] Comment on above: Performed By: #### C MADM, LIPA, BNP, CMP #### [facility] [address] [place] [address] Dr. Tasha Dodson ALT [Catalytic activity/Vol] 20 U/L Normal 14-59 [facility] Comment on above: Performed By: #### C MADM, LIPA, BNP, CMP #### [facility] [address] [place] [address] Dr. Tasha Dodson Anion gap [Moles/Vol] 10.8 mmol/L Normal [facility] Comment on above: Performed By: #### C MADM, LIPA, BNP, CMP #### [facility] [address] [place] [address] Dr. Tasha Dodson AST [Catalytic activity/Vol] 19 U/L Normal 15-37 [facility] Comment on above: Performed By: #### C MADM, LIPA, BNP, CMP #### [facility] [address] [place] [address] Dr. Tasha Dodson Bilirubin [Mass/Vol] 0.5 mg/dL Normal 0.2-1.0 [facility] Comment on above: Performed By: #### C MADM, LIPA, BNP, CMP #### [facility] [address] [place] [address] Dr. Tasha Dodson Calcium [Mass/Vol] 8.3 mg/dL Critically low 8.5-10.1 [facility] Comment on above: Performed By: #### C MADM, LIPA, BNP, CMP #### [facility] [address] [address] [address] Tasha Dodson Chloride [Moles/Vol] 89 mmol/L Critically low 98-107 [facility] Comment on above: Performed By: #### C MADM, LIPA, BNP, CMP #### [facility] [address] [place] [address] Dr. Tasha Dodson CO2 [Moles/Vol] 27.0 mmol/L Normal 21.0-32.0 [facility] Comment on above: Performed By: #### C MADM, LIPA, BNP, CMP #### [facility] [address] [address] [address] Tasha Dodson Creatinine [Mass/Vol] 0.69 mg/dL Normal 0.55-1.02 [facility] Comment on above: Performed By: #### C MADM, LIPA, BNP, CMP #### [facility] [address] [place] [address] Dr. Tasha Dodson EGFR-AF FILIPINO >60 Normal >=60 [facility] Comment on above: Performed By: #### C MADM, LIPA, BNP, CMP #### [facility] [address] [place] [address] Dr. Tasha Dodson EGFR-NON AF FILIPINO >60 Normal >=60 [facility] Comment on above: Performed By: #### C MADM, LIPA, BNP, CMP #### [facility] [address] [address] [address] Tasha Dodson Globulin (S) [Mass/Vol] 3.3 g/dL Normal [facility] Comment on above: Performed By: #### C MADM, LIPA, BNP, CMP #### [facility] [address] [place] [address] Dr. Tasha Dodson Glucose [Mass/Vol] 115 mg/dL Critically high 74-106 [facility] Comment on above: Performed By: #### C MADM, LIPA, BNP, CMP #### [facility] [address] [place] [address] Dr. Tasha Dodson Potassium [Moles/Vol] 2.7 mmol/L Critically low 3.5-5.1 [facility] Comment on above: Result Comment: Test Repeated. Critical Value Verified Performed By: #### C MADM, LIPA, BNP, CMP #### [facility] [address] [address] [address] Tasha Dodson Protein [Mass/Vol] 6.7 g/dL Normal 6.4-8.2 [facility] Comment on above: Performed By: #### C MADM, LIPA, BNP, CMP #### [facility] [address] [address] [address] Tasha Dodson Sodium [Moles/Vol] 123 mmol/L Critically low 136-145 [facility] Comment on above: Result Comment: Test Repeated. Critical Value Verified Performed By: #### C MADM, LIPA, BNP, CMP #### [facility] [address] [address] [address] Tasha Dodson Urea nitrogen [Mass/Vol] 6.0 mg/dL Critically low 7.0-18.0 [facility] Comment on above: Performed By: #### C MADM, LIPA, BNP, CMP #### [facility] [address] [place] [address] Dr. Tasha Dodson Urea nitrogen/Creatinine [Mass ratio] 8.7 mg/mg Normal [facility] Comment on above: Performed By: #### C MADM, LIPA, BNP, CMP #### [facility] [address] [address] [address] Tasha Dodson SPUTUM GRAM STAINon 12-28-19 COMMENTS Normal [facility] Comment on above: Performed By: #### T SH, BMP #### [facility] [address] [address] [address] Tasha Dodson DIPHTHEROIDS Normal [facility] Comment on above: Performed By: #### T SH, BMP #### [facility] [address] [place] [address] Dr. Tasha Dodson EPITHELIALS <25 Normal [facility] Comment on above: Performed By: #### T SH, BMP #### [facility] [address] [address] [address] Tasha Dodson FUNGAL ELEMENTS Normal [facility] Comment on above: Performed By: #### T SH, BMP #### [facility] [address] [address] [address] Tasha Dodson GRAM NEG BACILLI Normal [facility] Comment on above: Performed By: #### T SH, BMP #### [facility] [address] [address] [address] Tasha Dodson GRAM NEG DIPPLOCOCCI Normal [facility] Comment on above: Performed By: #### T SH, BMP #### [facility] [address] [address] [address] Tasha Dodson GRAM POS BACILLI Normal [facility] Comment on above: Performed By: #### T SH, BMP #### [facility] [address] [place] [address] Dr. Tasha Dodson GRAM POSITIVE COCCI MODERATE Normal [facility] Comment on above: Performed By: #### T SH, BMP #### [facility] [address] [place] [address] Dr. Tasha Dodson WBC (Bld) [#/Vol] 10*3/uL Normal [facility] Comment on above: Performed By: #### T SH, BMP #### [facility] [address] [place] [address] Dr. Tasha Dodson BNPon 12-26-2021 Natriuretic peptide B (Bld) [Mass/Vol] 148.0 pg/mL Normal <=1,800.0 [facility] Comment on above: Performed By: #### C MADM, LIPA, BNP, CMP #### [facility] [address] [place] [address] Dr. Tasha Dodson CARDIAC ANGELO ADMITon 022 CK [Catalytic activity/Vol] 139 U/L Normal 26-192 [facility] Comment on above: Performed By: #### C MADM, LIPA, BNP, CMP #### [facility] [address] [place] [address] Dr. Tasha Dodson CK.MB [Mass/Vol] 2.43 ng/mL Normal <=3.60 [facility] Comment on above: Performed By: #### C MADM, LIPA, BNP, CMP #### [facility] [address] [address] [address] Tasha Dodson HSTROP 12.2 pg/mL Normal 4.0-51.3 [facility] Comment on above: Result Comment: CUT- OFF POINTS HAVE BEEN ESTABLISHED BASED ON THE FOURTH UNIVERSAL DEFINITIONS OF MYOCARDIAL INFARCTION. THE UPPER REFERENCE LIMIT (URL) OF TROPONIN, DEFINED THE 99TH PERCENTILE OF cTnI DISTRIBUTION IN A REFERENCE POPULATION, HAS BEEN CONFIRMED THE DECISION THRESHOLD FOR CA DIAGNOSIS. Performed By: #### C MADM, LIPA, BNP, CMP #### [facility] [address] [place] [address] Dr. Tasha Dodson ELIZABETH 110 ng/mL Critically high 9-82 [facility] Comment on above: Performed By: #### C MADM, LIPA, BNP, CMP #### [facility] [address] [place] [address] Dr. Tasha Dodson CBC AUTO DIFFon 12-26-2021 BASO # 0.0 103/ul Normal 0.0-0.1 [facility] Comment on above: Performed By: #### C MADM, LIPA, BNP, CMP #### [facility] [address] [place] [address] Dr. Tasha Dodson Basophils/100 WBC (Bld) 0.3 % Normal 0.2-2.0 [facility] Comment on above: Performed By: #### C MADM, LIPA, BNP, CMP #### [facility] [address] [place] [address] Dr. Tasha Dodson EO # 0.1 103/ul Normal 0.0-0.7 [facility] Comment on above: Performed By: #### C MADM, LIPA, BNP, CMP #### [facility] [address] [place] [address] Dr. Tasha Dodson Eosinophils/100 WBC (Bld) 0.7 % Critically low 0.9-7.0 [facility] Comment on above: Performed By: #### C MADM, LIPA, BNP, CMP #### [facility] [address] [place] [address] Dr. Tasha Dodson Erythrocyte distribution width (RBC) [Ratio] 12.4 % Normal 11.0-15.0 [facility] Comment on above: Performed By: #### C MADM, LIPA, BNP, CMP #### [facility] [address] [place] [address] Dr. Tasha Dodson Hematocrit (Bld) [Volume fraction] 38.9 % Normal 36.0-48.0 [facility] Comment on above: Performed By: #### C MADM, LIPA, BNP, CMP #### [facility] [address] [place] [address] Dr. Tasha Dodson Hemoglobin (Bld) [Mass/Vol] 14.4 g/dL Normal 12.0-16.0 [facility] Comment on above: Performed By: #### C MADM, LIPA, BNP, CMP #### [facility] [address] [place] [address] Dr. Tasha Dodson IG # 0.08 10e3/ul Critically high 0.00-0.03 [facility] Comment on above: Performed By: #### C MADM, LIPA, BNP, CMP #### [facility] [address] [place] [address] Dr. Tasha Dodson IG % 0.5 % Normal 0.0-0.5 [facility] Comment on above: Performed By: #### C MADM, LIPA, BNP, CMP #### [facility] [address] [place] [address] Dr. Tasha Dodson LYMPH # 2.2 103/ul Normal 1.2-3.8 [facility] Comment on above: Performed By: #### C MADM, LIPA, BNP, CMP #### [facility] [address] [place] [address] Dr. Tasha Dodson Lymphocytes/100 WBC (Bld) 15.0 % Critically low 20.5-60.0 [facility] Comment on above: Performed By: #### C MADM, LIPA, BNP, CMP #### [facility] [address] [place] [address] Dr. Tasha Dodson MANUAL DIFF REQ NO Normal [facility] Comment on above: Performed By: #### C MADM, LIPA, BNP, CMP #### [facility] [address] [place] [address] Dr. Tasha Dodson MCH (RBC) [Entitic mass] 31.6 pg Normal 26.7-34.0 [facility] Comment on above: Performed By: #### C MADM, LIPA, BNP, CMP #### [facility] [address] [place] [address] Dr. Tasha Dodson MCHC (RBC) [Mass/Vol] 37.0 g/dL Critically high 29.9-35.2 [facility] Comment on above: Performed By: #### C MADM, LIPA, BNP, CMP #### [facility] [address] [place] [address] Dr. Tasha Dodson MCV (RBC) [Entitic vol] 85.3 fL Normal 81.0-99.0 [facility] Comment on above: Performed By: #### C MADM, LIPA, BNP, CMP #### [facility] [address] [place] [address] Dr. Tasha Dodson MONO # 1.0 103/ul Critically high 0.3-0.8 [facility] Comment on above: Performed By: #### C MADM, LIPA, BNP, CMP #### [facility] [address] [place] [address] Dr. Tasha Dodson Monocytes/100 WBC (Bld) 6.8 % Normal 1.7-12.0 [facility] Comment on above: Performed By: #### C MADM, LIPA, BNP, CMP #### [facility] [address] [place] [address] Dr. Tasha Dodson NEUT # 11.5 103/ul Critically high 1.4-6.5 [facility] Comment on above: Performed By: #### C MADM, LIPA, BNP, CMP #### [facility] [address] [place] [address] Dr. Tasha Dodson Neutrophils/100 WBC (Bld) 76.7 % Critically high 43.0-75.0 [facility] Comment on above: Performed By: #### C MADM, LIPA, BNP, CMP #### [facility] [address] [place] [address] Dr. Tasha Dodson Platelet mean volume (Bld) [Entitic vol] 8.6 fL Critically low 9.5-13.5 [facility] Comment on above: Performed By: #### C MADM, LIPA, BNP, CMP #### [facility] [address] [place] [address] Dr. Tasha Dodson PLT 491 103/ul Critically high 150-450 [facility] Comment on above: Performed By: #### C MADM, LIPA, BNP, CMP #### [facility] [address] [place] [address] Dr. Tasha Dodson RBC 4.56 106/ul Normal 4.20-5.40 [facility] Comment on above: Performed By: #### C MADM, LIPA, BNP, CMP #### [facility] [address] [place] [address] Dr. Tasha Dodson WBC 15.0 103/ul Critically high 4.0-11.0 [facility] Comment on above: Performed By: #### C MADM, LIPA, BNP, CMP #### [facility] [address] [place] [address] Dr. Tasha Dodson CULTURE URINEon 12-26-2021 CULTURE URINE Culture Observations : LIGHT GROWTH OF MIXED GENITAL AMADOU. NO POTENTIAL PATHOGENS SEEN. Normal [facility] Comment on above: Performed By: #### C BC #### [facility] [address] [place] [address] Dr. Tasha Dodson [facility]on SARS-CoV-2 (COVID-19) RNA CARITO+probe Ql (Unsp spec) Not detected Normal NOT DETECTED [facility] Comment on above: Result Comment: When diagnostic [...] for this test is supported by the [place] of Health and Human Service's declaration that [...] longer be used). Performed By: #### C MADM, LIPA, BNP, CMP #### [facility] [address] [place] [address] Dr. Tasha Dodson ER URINE PROFILEon 2 Bilirubin Ql (U) Negative Normal NEGATIVE [facility] Comment on above: Performed By: #### T SH, BMP #### [facility] [address] [place] [address] Dr. Tasha Dodson Clarity (U) CLEAR Normal CLEAR [facility] Comment on above: Performed By: #### T SH, BMP #### [facility] [address] [place] [address] Dr. Tasha Dodson Color (U) LT. YELLOW Normal YELLOW [facility] Comment on above: Performed By: #### T SH, BMP #### [facility] [address] [place] [address] Dr. Tasha Dodson ERUAHD A micrscopic examination will be performed if indicated. Normal [facility] Comment on above: Performed By: #### T SH, BMP #### [facility] [address] [place] [address] Dr. Tasha Dodson Glucose Ql (U) Negative Normal NEGATIVE [facility] Comment on above: Performed By: #### T SH, BMP #### [facility] [address] [place] [address] Dr. Tasha Dodson Hemoglobin Ql (U) TRACE-INTACT Abnormal NEGATIVE [facility] Comment on above: Performed By: #### T SH, BMP #### [facility] [address] [place] [address] Dr. Tasha Dodson Ketones Ql (U) TRACE Abnormal NEGATIVE [facility] Comment on above: Performed By: #### T SH, BMP #### [facility] [address] [place] [address] Dr. Tasha Dodson LEUKOCYTES Negative Normal NEGATIVE [facility] Comment on above: Performed By: #### T SH, BMP #### [facility] [address] [place] [address] Dr. Tasha Dodson Nitrite Ql (U) Negative Normal NEGATIVE [facility] Comment on above: Performed By: #### T SH, BMP #### [facility] [address] [place] [address] Dr. Tasha Dodson pH (U) 7.0 [pH] Normal 5-9 [facility] Comment on above: Performed By: #### T SH, BMP #### [facility] [address] [place] [address] Dr. Tasha Dodson SPEC GRAVITY 1.010 Normal 1.005-<=1.0 25 [facility] Comment on above: Performed By: #### T SH, BMP #### [facility] [address] [place] [address] Dr. Tasha Dodson UA PROTEIN Negative Normal NEGATIVE/ TRACE [facility] Comment on above: Performed By: #### T SH, BMP #### [facility] [address] [place] [address] Dr. Tasha Dodson UR MICRO IND INDICATED Normal [facility] Comment on above: Performed By: #### T SH, BMP #### [facility] [address] [place] [address] Dr. Tasha Dodson Urobilinogen Qn (U) 0.2 {Juan'U}/dL Normal 0.2 - 1. 0 [facility] Comment on above: Performed By: #### T SH, BMP #### [facility] [address] [place] [address] Dr. Tasha Dodson INFLUENZA A AND B AGon 12-26 INFLUANEGH SEE BELOW Normal [facility] Comment on above: Result Comment: Nega tive for Flu A protein angiten. Infection due to Flu A cannot be ruled out. Flu A angiten in the sample may be below the detection limit of the test. Performed By: #### C BC #### [facility] [address] [place] [address] Dr. Tasha Dodson INFLUBNEGH SEE BELOW Normal [facility] Comment on above: Result Comment: Nega tive for Flu B protein antigen. Infection due to Flu B cannot be ruled out. Flu B antigen in the sample may be below the detection limit of the test. Performed By: #### C BC #### [facility] [address] [place] [address] Dr. Tasha Dodson INFLUENZA A AG Negative Normal NEGATIVE SEE COMMENT [facility] Comment on above: Performed By: #### C BC #### [facility] [address] [place] [address] Dr. Tasha Dodson INFLUENZA B AG Negative Normal NEGATIVE SEE COMMENT [facility] Comment on above: Performed By: #### C BC #### [facility] [address] [place] [address] Dr. Tasha Dodson INTERNAL CONTROLS Within Normal Limits Normal Wi thin Normal Limits [facility] Comment on above: Performed By: #### C BC #### [facility] [address] [place] [address] Dr. Tasha Dodson LACTATE/LACTIC ACIDon 2021 Lactate [Moles/Vol] 1.5 mmol/L Normal 0.4-1.9 [facility] Comment on above: Performed By: #### T SH, BMP #### [facility] [address] [place] [address] Dr. Tasha Dodson LIPASEon 12-26-2021 Lipase [Catalytic activity/Vol] 96.0 U/L Normal 73.0-393.0 [facility] Comment on above: Performed By: #### C MADM, LIPA, BNP, CMP #### [facility] [address] [place] [address] Dr. Tasha Dodson PROF 14(COMP METB)on 022 Albumin [Mass/Vol] 4.2 g/dL Normal 3.4-5.0 [facility] Comment on above: Performed By: #### C MADM, LIPA, BNP, CMP #### [facility] [address] [place] [address] Dr. Tasha Dodson Albumin/Globulin [Mass ratio] 1.1 {ratio} Normal [facility] Comment on above: Performed By: #### C MADM, LIPA, BNP, CMP #### [facility] [address] [place] [address] Dr. Tasha Dodson ALP [Catalytic activity/Vol] 68 U/L Normal 46-116 [facility] Comment on above: Performed By: #### C MADM, LIPA, BNP, CMP #### [facility] [address] [place] [address] Dr. Tasha Dodson ALT [Catalytic activity/Vol] 23 U/L Normal 14-59 [facility] Comment on above: Performed By: #### C MADM, LIPA, BNP, CMP #### [facility] [address] [place] [address] Dr. Tasha Dodson Anion gap [Moles/Vol] 12.3 mmol/L Normal [facility] Comment on above: Performed By: #### C MADM, LIPA, BNP, CMP #### [facility] [address] [place] [address] Dr. Tasha Dodson AST [Catalytic activity/Vol] 25 U/L Normal 15-37 [facility] Comment on above: Performed By: #### C MADM, LIPA, BNP, CMP #### [facility] [address] [place] [address] Dr. Tasha Dodson Bilirubin [Mass/Vol] 0.7 mg/dL Normal 0.2-1.0 [facility] Comment on above: Performed By: #### C MADM, LIPA, BNP, CMP #### [facility] [address] [place] [address] Dr. Tasha Dodson Calcium [Mass/Vol] 9.5 mg/dL Normal 8.5-10.1 [facility] Comment on above: Performed By: #### C MADM, LIPA, BNP, CMP #### [facility] [address] [address] [address] Tasha Dodson Chloride [Moles/Vol] 80 mmol/L Critically low 98-107 [facility] Comment on above: Performed By: #### C MADM, LIPA, BNP, CMP #### [facility] [address] [address] [address] Tasha Dodson CO2 [Moles/Vol] 27.1 mmol/L Normal 21.0-32.0 [facility] Comment on above: Performed By: #### C MADM, LIPA, BNP, CMP #### [facility] [address] [place] [address] Dr. Tasha Dodson Creatinine [Mass/Vol] 0.85 mg/dL Normal 0.55-1.02 [facility] Comment on above: Performed By: #### C MADM, LIPA, BNP, CMP #### [facility] [address] [place] [address] Dr. Tasha Dodson EGFR-AF FILIPINO >60 Normal >=60 [facility] Comment on above: Performed By: #### C MADM, LIPA, BNP, CMP #### [facility] [address] [place] [address] Dr. Tasha Dodson EGFR-NON AF FILIPINO >60 Normal >=60 [facility] Comment on above: Performed By: #### C MADM, LIPA, BNP, CMP #### [facility] [address] [place] [address] Dr. Tasha Dodson Globulin (S) [Mass/Vol] 3.9 g/dL Normal [facility] Comment on above: Performed By: #### C MADM, LIPA, BNP, CMP #### [facility] [address] [place] [address] Dr. Tasha Dodson Glucose [Mass/Vol] 132 mg/dL Critically high 74-106 [facility] Comment on above: Performed By: #### C MADM, LIPA, BNP, CMP #### [facility] [address] [address] [address] Tasha Dodson Potassium [Moles/Vol] 2.4 mmol/L Critically low 3.5-5.1 [facility] Comment on above: Performed By: #### C MADM, LIPA, BNP, CMP #### [facility] [address] [place] [address] Dr. Tasha Dodson Protein [Mass/Vol] 8.1 g/dL Normal 6.4-8.2 [facility] Comment on above: Performed By: #### C MADM, LIPA, BNP, CMP #### [facility] [address] [place] [address] Dr. Tasha Dodson Sodium [Moles/Vol] 116 mmol/L Critically low 136-145 [facility] Comment on above: Performed By: #### C MADM, LIPA, BNP, CMP #### [facility] [address] [place] [address] Dr. Tasha Dodson Urea nitrogen [Mass/Vol] 12.0 mg/dL Normal 7.0-18.0 [facility] Comment on above: Performed By: #### C MADM, LIPA, BNP, CMP #### [facility] [address] [place] [address] Dr. Tasha Dodson Urea nitrogen/Creatinine [Mass ratio] 14.1 mg/mg Normal [facility] Comment on above: Performed By: #### C MADM, LIPA, BNP, CMP #### [facility] [address] [place] [address] Dr. Tasha Dodson PROF CHEM 8 (BAS METB)on Anion gap [Moles/Vol] 11.4 mmol/L Normal [facility] Comment on above: Performed By: #### T SH, BMP #### [facility] [address] [place] [address] Dr. Tasha Dodson Calcium [Mass/Vol] 8.4 mg/dL Critically low 8.5-10.1 [facility] Comment on above: Performed By: #### T SH, BMP #### [facility] [address] [address] [address] Tasha Dodson Chloride [Moles/Vol] 89 mmol/L Critically low 98-107 [facility] Comment on above: Performed By: #### T SH, BMP #### [facility] [address] [address] [address] Tasha Dodson CO2 [Moles/Vol] 25.5 mmol/L Normal 21.0-32.0 [facility] Comment on above: Performed By: #### T SH, BMP #### [facility] [address] [address] [address] Tasha Dodson Creatinine [Mass/Vol] 0.89 mg/dL Normal 0.55-1.02 [facility] Comment on above: Performed By: #### T SH, BMP #### [facility] [address] [address] [address] Tasha Dodson EGFR-AF FILIPINO >60 Normal >=60 [facility] Comment on above: Performed By: #### T SH, BMP #### [facility] [address] [address] [address] Tasha Dodson EGFR-NON AF FILIPINO 60 mL/min/1.73m2 Normal >=60 [facility] Comment on above: Performed By: #### T SH, BMP #### [facility] [address] [address] [address] Tasha Dodson Glucose [Mass/Vol] 166 mg/dL Critically high 74-106 [facility] Comment on above: Performed By: #### T SH, BMP #### [facility] [address] [address] [address] Tasha Dodson Potassium [Moles/Vol] 3.0 mmol/L Critically low 3.5-5.1 [facility] Comment on above: Performed By: #### T SH, BMP #### [facility] [address] [address] [address] Tasha Dodson Sodium [Moles/Vol] 123 mmol/L Critically low 136-145 [facility] Comment on above: Performed By: #### T JESI, BMP #### [facility] [address] [place] [address] Dr. Tasha Dodson Urea nitrogen [Mass/Vol] 9.0 mg/dL Normal 7.0-18.0 [facility] Comment on above: Performed By: #### T JESI, BMP #### [facility] [address] [place] [address] Dr. Tasha Dodson Urea nitrogen/Creatinine [Mass ratio] 10.1 mg/mg Normal [facility] Comment on above: Performed By: #### T JESI, BMP #### [facility] [address] [place] [address] Dr. Tasha Dodson PROTIMEon 12-26-2021 INR Coag (PPP) [Relative time] 0.96 {INR} Normal [facility] Comment on above: Performed By: #### T JESI, BMP #### [facility] [address] [place] [address] Dr. Tasha Dodson INR GUIDELINES SEE BELOW Normal [facility] Comment on above: Result Comment: JO RED INR: 2.0 - 3.0 CONDITIONS NOT LISTED BELOW 2.5 - 3.5 FOR PROSTHETIC HEART VALVE REPLACEMENT 2.5 - 3.5 RECURRENT THROMBOSIS Performed By: #### T JESI, BMP #### [facility] [address] [place] [address] Dr. Tasha Dodson PT Coag (PPP) [Time] 10.4 s Normal 9.0-11.6 [facility] Comment on above: Performed By: #### T JESI, BMP #### [facility] [address] [place] [address] Dr. Tasha Dodson PTTon 12-26-2021 aPTT Coag (Bld) [Time] 26.2 s Normal 22.3-36.2 [facility] Comment on above: Performed By: #### T JESI, BMP #### [facility] [address] [place] [address] Dr. Tasha Dodson SODIUM RANDOM URINEon 2021 Sodium (U) [Moles/Vol] 71 mmol/L Normal 30-90 [facility] Comment on above: Performed By: #### T SH, BMP #### [facility] [address] [place] [address] Dr. Tasha Dodson T4on 12-26-2021 T4 [Mass/Vol] 10.60 ug/dL Normal 4.80-13.90 [facility] Comment on above: Performed By: #### C BC #### [facility] [address] [place] [address] Dr. Tasha Dodson TSHon 12-26-2021 TSH 5.236 uIU/mL Critically high 0.358-3.740 [facility] Comment on above: Performed By: #### C BC #### [facility] [address] [place] [address] Dr. Tasha Dodson URINE MICROSCOPIC ONLYon BACTERIA TRACE Abnormal NONE SEEN [facility] Comment on above: Performed By: #### T SH, BMP #### [facility] [address] [place] [address] Dr. Tasha Dodson Bacteria identified Cx Nom (U) NOT INDICATED Normal [facility] Comment on above: Performed By: #### T SH, BMP #### [facility] [address] [place] [address] Dr. Tasha Dodson CAST NONE SEEN Normal NONE SEEN [facility] Comment on above: Performed By: #### T SH, BMP #### [facility] [address] [place] [address] Dr. Tasha Dodson Crystals LM Nom (Urine sed) NONE SEEN Normal NONE SEEN [facility] Comment on above: Performed By: #### T SH, BMP #### [facility] [address] [place] [address] Dr. Tasha Dodson Epithelial cells LM Ql (Urine sed) NONE SEEN Normal NONE SEEN /RARE [facility] Comment on above: Performed By: #### T SH, BMP #### [facility] [address] [place] [address] Dr. Tasha Dodson MUCOUS NONE SEEN Normal NONE SEEN [facility] Comment on above: Performed By: #### T SH, BMP #### [facility] [address] [address] [address] Tasha Dodson RBC 0-2 Normal 0-2 [facility] Comment on above: Performed By: #### T PAWAN DENNISON #### [facility] [address] [address] [address] Tasha Dodson WBC 0-2 Abnormal NONE SEEN [facility] Comment on above: Performed By: #### T PAWAN DENNISON #### [facility] [address] [address] [address] Tasha Dodson XR CHEST 1 Von [...] TING MIXON Date: 2021-12-26 11:32 Normal [facility] XR LSPINE MIN 4 VIEWSon 11-20 [...] by: JESUS BRUNO Date: 2021-11-30 22:52 Normal [facility] CBC AUTO DIFFon 11-09-2021 BASO # 0.1 103/ul Normal 0.0-0.1 [facility] Comment on above: Performed By: #### C MADM, LIPA, BNP, CMP #### [facility] [address] [place] [address] Dr. Tasha Dodson Basophils/100 WBC (Bld) 0.7 % Normal 0.2-2.0 [facility] Comment on above: Performed By: #### C MADM, LIPA, BNP, CMP #### [facility] [address] [place] [address] Dr. Tasha Dodson EO # 0.2 103/ul Normal 0.0-0.7 [facility] Comment on above: Performed By: #### C MADM, LIPA, BNP, CMP #### [facility] [address] [place] [address] Dr. Tasha Dodson Eosinophils/100 WBC (Bld) 1.8 % Normal 0.9-7.0 [facility] Comment on above: Performed By: #### C MADM, LIPA, BNP, CMP #### [facility] [address] [place] [address] Dr. Tasha Dodson Erythrocyte distribution width (RBC) [Ratio] 13.0 % Normal 11.0-15.0 [facility] Comment on above: Performed By: #### C MADM, LIPA, BNP, CMP #### [facility] [address] [place] [address] Dr. Tasha Dodson Hematocrit (Bld) [Volume fraction] 33.8 % Critically low 36.0-48.0 [facility] Comment on above: Performed By: #### C MADM, LIPA, BNP, CMP #### [facility] [address] [place] [address] Dr. Tasha Dodson Hemoglobin (Bld) [Mass/Vol] 12.5 g/dL Normal 12.0-16.0 [facility] Comment on above: Performed By: #### C MADM, LIPA, BNP, CMP #### [facility] [address] [place] [address] Dr. Tasha Dodson IG # 0.02 10e3/ul Normal 0.00-0.03 [facility] Comment on above: Performed By: #### C MADM, LIPA, BNP, CMP #### [facility] [address] [place] [address] Dr. Tasha Dodson IG % 0.2 % Normal 0.0-0.5 [facility] Comment on above: Performed By: #### C MADM, LIPA, BNP, CMP #### [facility] [address] [place] [address] Dr. Tasha Dodson LYMPH # 2.9 103/ul Normal 1.2-3.8 [facility] Comment on above: Performed By: #### C MADM, LIPA, BNP, CMP #### [facility] [address] [place] [address] Dr. Tasha Dodson Lymphocytes/100 WBC (Bld) 29.4 % Normal 20.5-60.0 [facility] Comment on above: Performed By: #### C MADM, LIPA, BNP, CMP #### [facility] [address] [place] [address] Dr. Tasha Dodson MANUAL DIFF REQ NO Normal [facility] Comment on above: Performed By: #### C MADM, LIPA, BNP, CMP #### [facility] [address] [place] [address] Dr. Tasha Dodson MCH (RBC) [Entitic mass] 34.1 pg Critically high 26.7-34.0 [facility] Comment on above: Performed By: #### C MADM, LIPA, BNP, CMP #### [facility] [address] [place] [address] Dr. Tasha Dodson MCHC (RBC) [Mass/Vol] 37.0 g/dL Critically high 29.9-35.2 [facility] Comment on above: Performed By: #### C MADM, LIPA, BNP, CMP #### [facility] [address] [place] [address] Dr. Tasha Dodsno MCV (RBC) [Entitic vol] 92.1 fL Normal 81.0-99.0 [facility] Comment on above: Performed By: #### C MADM, LIPA, BNP, CMP #### [facility] [address] [place] [address] Dr. Tasha Dodson MONO # 0.8 103/ul Normal 0.3-0.8 [facility] Comment on above: Performed By: #### C MADM, LIPA, BNP, CMP #### [facility] [address] [place] [address] Dr. Tasha Dodson Monocytes/100 WBC (Bld) 8.2 % Normal 1.7-12.0 [facility] Comment on above: Performed By: #### C MADM, LIPA, BNP, CMP #### [facility] [address] [place] [address] Dr. Tasha Dodson NEUT # 5.9 103/ul Normal 1.4-6.5 [facility] Comment on above: Performed By: #### C MADM, LIPA, BNP, CMP #### [facility] [address] [place] [address] Dr. Tasha Dodson Neutrophils/100 WBC (Bld) 59.7 % Normal 43.0-75.0 [facility] Comment on above: Performed By: #### C MADM, LIPA, BNP, CMP #### [facility] [address] [place] [address] Dr. Tasha Dodson Platelet mean volume (Bld) [Entitic vol] 8.9 fL Critically low 9.5-13.5 [facility] Comment on above: Performed By: #### C MADM, LIPA, BNP, CMP #### [facility] [address] [place] [address] Dr. Tasha Dodson PLT 370 103/ul Normal 150-450 [facility] Comment on above: Performed By: #### C MADM, LIPA, BNP, CMP #### [facility] [address] [place] [address] Dr. Tasha Dodson RBC 3.67 106/ul Critically low 4.20-5.40 [facility] Comment on above: Performed By: #### C MADM, LIPA, BNP, CMP #### [facility] [address] [place] [address] Dr. Tasha Dodson WBC 9.9 103/ul Normal 4.0-11.0 [facility] Comment on above: Performed By: #### C MADM, LIPA, BNP, CMP #### [facility] [address] [place] [address] Dr. Tasha Dodson FREE T4on 11-09-2021 Free T4 [Mass/Vol] 1.48 ng/dL Critically high 0.76-1.46 [facility] Comment on above: Performed By: #### F T4 #### [facility] [address] [place] [address] Dr. Tasha Dodson PROF CHEM 8 (BAS METB)on Anion gap [Moles/Vol] 11.1 mmol/L Normal [facility] Comment on above: Performed By: #### T SH, BMP #### [facility] [address] [place] [address] Dr. Tasha Dodson Calcium [Mass/Vol] 9.3 mg/dL Normal 8.5-10.1 [facility] Comment on above: Performed By: #### T SH, BMP #### [facility] [address] [place] [address] Dr. Tasha Dodson Chloride [Moles/Vol] 92 mmol/L Critically low 98-107 [facility] Comment on above: Performed By: #### T SH, BMP #### [facility] [address] [place] [address] Dr. Tasha Dodson CO2 [Moles/Vol] 29.2 mmol/L Normal 21.0-32.0 [facility] Comment on above: Performed By: #### T SH, BMP #### [facility] [address] [place] [address] Dr. Tasha Dodson Creatinine [Mass/Vol] 0.68 mg/dL Normal 0.55-1.02 [facility] Comment on above: Performed By: #### T SH, BMP #### [facility] [address] [place] [address] Dr. Tasha Dodson EGFR-AF FILIPINO >60 Normal >=60 [facility] Comment on above: Performed By: #### T SH, BMP #### [facility] [address] [address] [address] Tasha Dodson EGFR-NON AF FILIPINO >60 Normal >=60 [facility] Comment on above: Performed By: #### T SH, BMP #### [facility] [address] [address] [address] Tasha Dodson Glucose [Mass/Vol] 109 mg/dL Critically high 74-106 [facility] Comment on above: Performed By: #### T SH, BMP #### [facility] [address] [address] [address] Tasha Dodson Potassium [Moles/Vol] 3.3 mmol/L Critically low 3.5-5.1 [facility] Comment on above: Performed By: #### T SH, BMP #### [facility] [address] [place] [address] Dr. Tasha Dodson Sodium [Moles/Vol] 129 mmol/L Critically low 136-145 [facility] Comment on above: Performed By: #### T SH, BMP #### [facility] [address] [address] [address] Tasha Dodson Urea nitrogen [Mass/Vol] 9.0 mg/dL Normal 7.0-18.0 [facility] Comment on above: Performed By: #### T SH, BMP #### [facility] [address] [place] [address] Dr. Tasha Dodson Urea nitrogen/Creatinine [Mass ratio] 13.2 mg/mg Normal [facility] Comment on above: Performed By: #### T SH, BMP #### [facility] [address] [address] [address] Tasha Dodson TSHon 11-09-2021 TSH 1.193 uIU/mL Normal 0.358-3.740 [facility] Comment on above: Performed By: #### T SH, BMP #### [facility] [address] [place] [address] Dr. Tasha Dodson LIPID PROFILEon 08-06-2021 CHOL-HDL RATIO NORM SEE BELOW Normal [facility] Comment on above: Result Comment: 3.3 - 4.4 LOW RISK 4.4 - 7.1 AVERAGE RISK 7.1 - 11.0 MODERATE RISK >11.0 HIGH RISK Performed By: #### C MADM, LIPA, BNP, CMP #### [facility] [address] [address] [address] Tasha Dodson Cholesterol [Mass/Vol] 198 mg/dL Normal <=200 [facility] Comment on above: Performed By: #### C MADM, LIPA, BNP, CMP #### [facility] [address] [address] [address] Tasha Dodson Cholesterol in HDL [Mass/Vol] 77 mg/dL Critically high 40-60 [facility] Comment on above: Performed By: #### C MADM, LIPA, BNP, CMP #### [facility] [address] [address] [address] Tasha Dodson Cholesterol in LDL [Mass/Vol] 106.0 mg/dL Normal [facility] Comment on above: Performed By: #### C MADM, LIPA, BNP, CMP #### [facility] [address] [address] [address] Tasha Dodson Cholesterol.total/Shahana sterol in HDL [Mass ratio] 2.6 {ratio} Normal [facility] Comment on above: Performed By: #### C MADM, LIPA, BNP, CMP #### [facility] [address] [address] [address] Tasha Dodson HDL NORMAL > or = 60 mg/dl - LO W CARDIOVASCULAR RISK <40 mg/dl - HIGH CARDIOVASCULAR RISK Normal [facility] Comment on above: Performed By: #### C MADM, LIPA, BNP, CMP #### [facility] [address] [address] [address] Tasha Dodson LDL CALC NORMAL SEE BELOW Normal [facility] Comment on above: Result Comment: <100 mg/dl OPTIMAL 100 - 129 mg/dl NEAR OR ABOVE OPTIMAL 130 - 159 mg/dl BORDERLINE HIGH 160 - 189 mg/dl HIGH >190 mg/dl VERY HIGH Performed By: #### C MADM, LIPA, BNP, CMP #### [facility] [address] [address] [address] Tasha Dodson Triglyceride [Mass/Vol] 75 mg/dL Normal <=150 [facility] Comment on above: Performed By: #### C MADM, LIPA, BNP, CMP #### [facility] [address] [address] [address] Tasha Dodson VLDL CALC 15.0 mg/dL Normal [facility] Comment on above: Performed By: #### C MADM, LIPA, BNP, CMP #### [facility] [address] [address] [address] Tasha Dodson LIVER PROFILEon 08-06-2021 Albumin [Mass/Vol] 3.7 g/dL Normal 3.4-5.0 [facility] Comment on above: Performed By: #### C MADM, LIPA, BNP, CMP #### [facility] [address] [address] [address] Tasha Dodson Albumin/Globulin [Mass ratio] 1.0 {ratio} Normal [facility] Comment on above: Performed By: #### C MADM, LIPA, BNP, CMP #### [facility] [address] [address] [address] Tasha Dodson ALP [Catalytic activity/Vol] 62 U/L Normal 46-116 [facility] Comment on above: Performed By: #### C MADM, LIPA, BNP, CMP #### [facility] [address] [address] [address] Tasha Dodson ALT [Catalytic activity/Vol] 26 U/L Normal 14-59 [facility] Comment on above: Performed By: #### C MADM, LIPA, BNP, CMP #### [facility] [address] [address] [address] Tasha Dodson AST [Catalytic activity/Vol] 24 U/L Normal 15-37 [facility] Comment on above: Performed By: #### C MADM, LIPA, BNP, CMP #### [facility] [address] [address] [address] Tasha Dodson BILI, CONJUGATED 0.1 mg/dL Normal 0.0-0.2 [facility] Comment on above: Performed By: #### C MADM, LIPA, BNP, CMP #### [facility] [address] [place] [address] Dr. Tasha Dodson Bilirubin [Mass/Vol] 0.5 mg/dL Normal 0.2-1.0 [facility] Comment on above: Performed By: #### C MADM, LIPA, BNP, CMP #### [facility] [address] [place] [address] Dr. Tasha Dodson Globulin (S) [Mass/Vol] 3.8 g/dL Normal [facility] Comment on above: Performed By: #### C MADM, LIPA, BNP, CMP #### [facility] [address] [place] [address] Dr. Tasha Dodson Protein [Mass/Vol] 7.5 g/dL Normal 6.4-8.2 [facility] Comment on above: Performed By: #### C MADM, LIPA, BNP, CMP #### [facility] [address] [place] [address] Dr. Tasha Dodson FREE T4on 07-28-2021 Free T4 [Mass/Vol] 1.32 ng/dL Normal 0.76-1.46 [facility] Comment on above: Performed By: #### T SH, BMP #### [facility] [address] [place] [address] Dr. Tasha Dodson PROF CHEM 8 (BAS METB)on Anion gap [Moles/Vol] 11.6 mmol/L Normal [facility] Comment on above: Performed By: #### B MP, TSH #### [facility] [address] [place] [address] Dr. Tasha Dodson Calcium [Mass/Vol] 9.4 mg/dL Normal 8.5-10.1 [facility] Comment on above: Performed By: #### B MP, TSH #### [facility] [address] [place] [address] Dr. Tasha Dodson Chloride [Moles/Vol] 93 mmol/L Critically low 98-107 [facility] Comment on above: Performed By: #### B MP, TSH #### [facility] [address] [address] [address] Tasha Dodson CO2 [Moles/Vol] 29.8 mmol/L Normal 21.0-32.0 [facility] Comment on above: Performed By: #### B MP, TSH #### [facility] [address] [address] [address] Tasha Dodson Creatinine [Mass/Vol] 0.74 mg/dL Normal 0.55-1.02 [facility] Comment on above: Performed By: #### B MP, TSH #### [facility] [address] [place] [address] Dr. Tasha Dodson EGFR-AF FILIPINO >60 Normal >=60 [facility] Comment on above: Performed By: #### B MP, TSH #### [facility] [address] [place] [address] Dr. Tasha Dodson EGFR-NON AF FILIPINO >60 Normal >=60 [facility] Comment on above: Performed By: #### B MP, TSH #### [facility] [address] [address] [address] Tasha Dodson Glucose [Mass/Vol] 114 mg/dL Critically high 74-106 [facility] Comment on above: Performed By: #### B MP, TSH #### [facility] [address] [address] [address] Tasha Dodson Potassium [Moles/Vol] 3.4 mmol/L Critically low 3.5-5.1 [facility] Comment on above: Performed By: #### B MP, TSH #### [facility] [address] [address] [address] Tasah Dodson Sodium [Moles/Vol] 131 mmol/L Critically low 136-145 [facility] Comment on above: Performed By: #### B MP, TSH #### [facility] [address] [address] [address] Tasha Dodson Urea nitrogen [Mass/Vol] 12.0 mg/dL Normal 7.0-18.0 [facility] Comment on above: Performed By: #### B MP, TSH #### [facility] [address] [address] [address] Tasha Dodson Urea nitrogen/Creatinine [Mass ratio] 16.2 mg/mg Normal [facility] Comment on above: Performed By: #### B MP, TSH #### [facility] [address] [address] [address] Tasha Dodson TSHon 07-28-2021 TSH 1.790 uIU/mL Normal 0.358-3.740 [facility] Comment on above: Performed By: #### B MP, TSH #### [facility] [address] [place] [address] Dr. Tasha Dodson TSH RANGE SEE BELOW Normal [facility] Comment on above: Result Comment: <0.3 4 UIU/ml HYPERTHYROID 0.34-5.60 UIU/ml EUTHYROID >5.60 UIU/ml HYPOTHYROID Performed By: #### B MP, TSH #### [facility] [address] [address] [address] Tasha Dodson CBC Auto Differentialon 10-0 Basophils (Bld) [#/Vol] 0.1 10*3/uL 0 - 0.2 K/uL [place] Basophils/100 WBC (Bld) 1.1 % [place] Eosinophils (Bld) [#/Vol] 0.2 10*3/uL 0 - 0.7 K/uL [place] Eosinophils/100 WBC (Bld) 1.4 % [place] Erythrocyte distribution width (RBC) [Ratio] 14.4 % 11.5 - 14.5 % [place] Hematocrit (Bld) [Volume fraction] 33.6 % Low 37 - 47 % [place] Hemoglobin (Bld) [Mass/Vol] 11.1 g/dL Low 12 - 16 g/dL [place] Interpretation and review of laboratory results Abnormal [place] Lymphocytes (Bld) [#/Vol] 2.3 10*3/uL 1 - 4.8 K/uL [place] Lymphocytes/100 WBC (Bld) 18.0 % [place] MCH (RBC) [Entitic mass] 29.5 pg 27 - 31.3 pg [place] MCHC (RBC) [Mass/Vol] 33.0 % 33 - 37 % [place] MCV (RBC) [Entitic vol] 89.5 fL 82 - 100 fL [place] Monocytes (Bld) [#/Vol] 0.9 10*3/uL High 0.2 - 0.8 K/uL [place] Monocytes/100 WBC (Bld) 6.9 % [place] Neutrophils Absolute 9.1 K/uL High 1.4 - 6 .5 K/uL [place] Neutrophils/100 WBC (Bld) 72.6 % [place] Platelets (Bld) [#/Vol] 548 10*3/uL High 130 - 400 K/uL [place] RBC (Bld) [#/Vol] 3.75 10*6/uL Low [place] WBC (Bld) [#/Vol] 12.5 10*3/uL High 4.8 - 10.8 K/uL [place] CBC With Platelet and Differ entialon 11-20-2018 Basophils (Bld) [#/Vol] 0.1 10*3/uL Normal 0.0-0.2 [facility] Comment on above: Performed By: #### E SR #### [facility] [address] [facility] [address] Basophils/100 WBC (Bld) 1.1 % Normal [facility] Comment on above: Performed By: #### E SR #### [facility] [address] [facility] [address] Eosinophils (Bld) [#/Vol] 0.2 10*3/uL Normal 0.0-0.7 [facility] Comment on above: Performed By: #### E SR #### [facility] [address] [place] [address] Eosinophils/100 WBC (Bld) 1.4 % Normal [facility] Comment on above: Performed By: #### E SR #### [facility] [address] [place] [address] Erythrocyte distribution width (RBC) [Ratio] 14.4 % Normal 11.5-14.5 [facility] Comment on above: Performed By: #### E SR #### [facility] [address] [place] [address] Hematocrit (Bld) [Volume fraction] 33.6 % Low 37.0-47.0 [facility] Comment on above: Performed By: #### E SR #### [facility] [address] [place] [address] Hemoglobin (Bld) [Mass/Vol] 11.1 g/dL Low 12.0-16.0 [facility] Comment on above: Performed By: #### E SR #### [facility] [address] [place] [address] Lymphocytes (Bld) [#/Vol] 2.3 10*3/uL Normal 1.0-4.8 [facility] Comment on above: Performed By: #### E SR #### [facility] [address] [place] [place] [address] Lymphocytes/100 WBC (Bld) 18.0 % Normal [facility] Comment on above: Performed By: #### E SR #### [facility] [address] [place] [address] MCH (RBC) [Entitic mass] 29.5 pg Normal 27.0-31.3 [facility] Comment on above: Performed By: #### E SR #### [facility] [address] [place] [address] MCHC (RBC) [Mass/Vol] 33.0 % Normal 33.0-37.0 [facility] Comment on above: Performed By: #### E SR #### [facility] [address] [place] [address] MCV (RBC) [Entitic vol] 89.5 fL Normal 82.0-100.0 [facility] Comment on above: Performed By: #### E SR #### [facility] [address] [place] [address] Monocytes (Bld) [#/Vol] 0.9 10*3/uL Critically high 0.2-0. 8 [facility] Comment on above: Performed By: #### E SR #### [facility] [address] [place] [address] Monocytes/100 WBC (Bld) 6.9 % Normal [facility] Comment on above: Performed By: #### E SR #### [facility] [address] [place] [address] Neutrophils (Bld) [#/Vol] 9.1 10*3/uL Critically high 1.4-6.5 [facility] Comment on above: Performed By: #### E SR #### [facility] [address] [place] [address] Neutrophils/100 WBC (Bld) 72.6 % Normal [facility] Comment on above: Performed By: #### E SR #### [facility] [address] [place] [address] Platelets (Bld) [#/Vol] 548 10*3/uL Critically high 130-40 0 [facility] Comment on above: Performed By: #### E SR #### [facility] [address] [place] [address] RBC (Bld) [#/Vol] 3.75 10*6/uL Low 4.20-5.40 [facility] Comment on above: Performed By: #### E SR #### [facility] [address] [place] [address] WBC (Bld) [#/Vol] 12.5 10*3/uL Critically high 4.8-10.8 [facility] Comment on above: Performed By: #### E SR #### [facility] [address] [place] [address] EKG 12 Leadon 11-20-2018 Atrial Rate 79 BPM [place] P [place] 58 degrees [place] P-R Interval 176 ms [place] Q-T Interval 404 ms [facility], [place] QRS Duration 130 ms [place] QTc Calculation ([place]az[place]) 463 ms [place] R [place] -11 degrees [facility] [place] T [place] 5 degrees [place] Urea nitrogen [Mass/Vol] Normal sinus rhythm Right bundle branch block Moderate voltage criteria for LVH, may be normal variant Abnormal ECG When compared with ECG of 13-NOV-2018 08:33, No significant change was found Confirmed by Анна Zamarripa ([id number]) on 11/20/2018 9:39:56 AM [place] Ventricular Rate 79 BPM [place] Joseph, Chpo Incoming Results From [place] - 11/20/2018 9:40 AM EDT Normal sinus rhythm Right bundle branch block Moderate voltage criteria for LVH, may be normal variant Abnormal ECG When compared with ECG of 13-NOV-2018 08:33, No significant change was found Confirmed by Анна Zamarripa ([id number]) on 11/20/2018 9:39:56 AM [place] CBC Auto Differentialon 10-23 Neutrophils Absolute 6.1 K/uL 1.4 - 6 .5 K/uL [place] CBC With Platelet and Differ entialon 11-19-2018 Basophils (Bld) [#/Vol] 0.2 10*3/uL Normal 0.0-0.2 [place] Comment on above: Performed By: #### C MP #### [facility] [address] [place] [address] Basophils/100 WBC (Bld) 1.5 % Normal [place] Comment on above: Performed By: #### C MP #### [facility] [address] [place] [address] Eosinophils (Bld) [#/Vol] 0.3 10*3/uL Normal 0.0-0.7 [place] Comment on above: Performed By: #### C MP #### [facility] [address] [place] [address] Eosinophils/100 WBC (Bld) 2.5 % Normal [place] Comment on above: Performed By: #### C MP #### [facility] [address] [place] [address] Erythrocyte distribution width (RBC) [Ratio] 14.1 % Normal 11.5-14.5 [place] Comment on above: Performed By: #### C MP #### [facility] [address] [place] [address] Hematocrit (Bld) [Volume fraction] 29.3 % Low 37.0-47.0 [place] Comment on above: Performed By: #### C MP #### [facility] [address] [place] [address] Hemoglobin (Bld) [Mass/Vol] 10.1 g/dL Low 12.0-16.0 [place] Comment on above: Performed By: #### C MP #### [facility] [address] [place] [address] Lymphocytes (Bld) [#/Vol] 2.8 10*3/uL Normal 1.0-4.8 [place] Comment on above: Performed By: #### C MP #### [facility] [address] [place] [address] Lymphocytes/100 WBC (Bld) 27.3 % Normal [place] Comment on above: Performed By: #### C MP #### [facility] [address] [place] [address] MCH (RBC) [Entitic mass] 30.7 pg Normal 27.0-31.3 [place] Comment on above: Performed By: #### C MP #### [facility] [address] [facility] [place] [address] MCHC (RBC) [Mass/Vol] 34.6 % Normal 33.0-37.0 [place] Comment on above: Performed By: #### C MP #### [facility] [address] [facility] [place] [address] MCV (RBC) [Entitic vol] 88.9 fL Normal 82.0-100.0 [place] Comment on above: Performed By: #### C MP #### [facility] [address] [facility] [place] [address] Monocytes (Bld) [#/Vol] 0.9 10*3/uL Critically high 0.2-0. 8 [place] Comment on above: Performed By: #### C MP #### [facility] [address] [facility] [place] [address] Monocytes/100 WBC (Bld) 9.2 % Normal [place] Comment on above: Performed By: #### C MP #### [facility] [address] [facility] [place] [address] Neutrophils (Bld) [#/Vol] 6.1 10*3/uL Normal 1.4-6.5 [facility] Comment on above: Performed By: #### C MP #### [facility] [address] [facility] [place] [address] Neutrophils/100 WBC (Bld) 59.5 % Normal [place] Comment on above: Performed By: #### C MP #### [facility] [address] [place] [address] Platelets (Bld) [#/Vol] 396 10*3/uL Normal 130-400 [place] Comment on above: Performed By: #### C MP #### [facility] [address] [facility] [place] [address] RBC (Bld) [#/Vol] 3.30 10*6/uL Low 4.20-5.40 [place] Comment on above: Performed By: #### C MP #### [facility] [address] [place] [address] WBC (Bld) [#/Vol] 10.2 10*3/uL Normal 4.8-10.8 [place] Comment on above: Performed By: #### C MP #### [facility] [address] [place] [address] High Sensitivity CRPon 11-19 High Sensitivity CRP 89.2 mg/L Critically high 0.0-5.0 [facility] Comment on above: Performed By: #### E SR #### [facility] [address] [place] [address] High sensitivity CRPon 11-19 CRP High Sensitivity 89.2 mg/L High 0 - 5 mg/L [place] Interpretation and review of laboratory results Abnormal [place] Otheron 11-19-2018 Interpretation and review of laboratory results Abnormal [place] Sedimentation Rateon 019 Sedimentation Rate 55 mm Critically high 0-30 [facility] Comment on above: Performed By: #### C MP #### [facility] [address] [place] [address] Sed Rate 55 mm High 0 - 30 mm [place] Basic Metabolic Panelon 10-22 Anion gap [Moles/Vol] 14 mmol/L Normal 9-15 [facility] Comment on above: Performed By: #### C MP #### [facility] [address] [place] [address] Calcium [Mass/Vol] 8.8 mg/dL Normal 8.5-9.9 [facility] Comment on above: Performed By: #### C MP #### [facility] [address] [place] [address] Chloride [Moles/Vol] 95 mmol/L Normal 95-107 [facility] Comment on above: Performed By: #### C MP #### [facility] [address] [place] [address] CO2 [Moles/Vol] 26 mmol/L Normal 20-31 [facility] Comment on above: Performed By: #### C MP #### [facility] [address] [place] [address] Creatinine [Mass/Vol] 0.58 mg/dL Normal 0.50-0.90 [facility] Comment on above: Performed By: #### C MP #### [facility] [address] [place] [address] GFR/1.73 sq M predicted among blacks MDRD (S/P/Bld) [Vol rate/Area] mL/min/{1.73_m2} Normal >60 [facility] Comment on above: Result Comment: >60 mL/min/1.73m2 EGFR, calc. for ages 18 and older using the MDRD formula (not corrected for weight), is valid for stable renal function. Performed By: #### C MP #### [facility] [address] [place] [address] GFR/1.73 sq M.predicted MDRD (S/P/Bld) [Vol rate/Area] mL/min/{1.73_m2} Normal >60 [facility] Comment on above: Result Comment: >60 mL/min/1.73m2 EGFR, calc. for ages 18 and older using the MDRD formula (not corrected for weight), is valid for stable renal function. Performed By: #### C MP #### [facility] [address] [place] [address] Glucose [Mass/Vol] 156 mg/dL Critically high 70-99 [facility] Comment on above: Performed By: #### C MP #### [facility] [address] [place] [address] Potassium [Moles/Vol] 3.3 mmol/L Low 3.4-4.9 [facility] Comment on above: Performed By: #### C MP #### [facility] [address] [place] [address] Sodium [Moles/Vol] 135 mmol/L Normal 135-144 [facility] Comment on above: Performed By: #### C MP #### [facility] [address] [place] [address] Urea nitrogen [Mass/Vol] 11 mg/dL Normal 8-23 [facility] Comment on above: Performed By: #### C MP #### [facility] [address] [place] [address] Anion gap [Moles/Vol] 14 mmol/L [place] Calcium [Mass/Vol] 8.8 mg/dL 8.5 - 9.9 mg/dL [place] Chloride [Moles/Vol] 95 mmol/L [place], [place] CO2 [Moles/Vol] 26 mmol/L [place] Creatinine [Mass/Vol] 0.58 mg/dL 0.5 - 0.9 mg/dL [place] GFR >60.0 >60 [place] Comment on above: >60 mL/min/1.73m2 EG FR, calc. for ages 18 and older using the MDRD formula (not corrected for weight), is valid for stable renal function. GFR Non- >60.0 >60 [place] Comment on above: >60 mL/min/1.73m2 EG FR, calc. for ages 18 and older using the MDRD formula (not corrected for weight), is valid for stable renal function. Glucose [Mass/Vol] 156 mg/dL High 70 - 99 mg/dL [place] Interpretation and review of laboratory results Abnormal [place] Potassium [Moles/Vol] 3.3 mmol/L Low [place] Sodium [Moles/Vol] 135 mmol/L [place] Urea nitrogen [Mass/Vol] 11 mg/dL 8 - 23 mg/dL [place] Magnesiumon 11-18-2018 Magnesium [Mass/Vol] 1.8 mg/dL Normal 1.7-2.4 [facility] Comment on above: Performed By: #### C MP #### [facility] [address] [place] [address] Magnesium [Mass/Vol] 1.8 mg/dL 1.7 - 2 .4 mg/dL [place] TSH w/out Reflexon 9 TSH Qn 0.880 uIU/mL Normal 0.440-3.86 [facility] Comment on above: Performed By: #### C MP #### [facility] [address] [place] [address] TSH without Reflexon 019 TSH Qn 0.880 m[IU]/L [place] CBC Auto Differentialon 10-22 Basophils (Bld) [#/Vol] 0.1 10*3/uL 0 - 0.2 K/uL [place] Basophils/100 WBC (Bld) 0.7 % [place] Eosinophils (Bld) [#/Vol] 0.4 10*3/uL 0 - 0.7 K/uL [place] Eosinophils/100 WBC (Bld) 2.8 % [place] Erythrocyte distribution width (RBC) [Ratio] 14.2 % 11.5 - 14.5 % [place] Hematocrit (Bld) [Volume fraction] 32.3 % Low 37 - 47 % [place] Hemoglobin (Bld) [Mass/Vol] 10.8 g/dL Low 12 - 16 g/dL [place] Interpretation and review of laboratory results Abnormal [place] Lymphocytes (Bld) [#/Vol] 2.6 10*3/uL 1 - 4.8 K/uL [place] Lymphocytes/100 WBC (Bld) 16.8 % [place] MCH (RBC) [Entitic mass] 30.3 pg 27 - 31.3 pg [place] MCHC (RBC) [Mass/Vol] 33.4 % 33 - 37 % [place] MCV (RBC) [Entitic vol] 90.5 fL 82 - 100 fL [place] Monocytes (Bld) [#/Vol] 1.3 10*3/uL High 0.2 - 0.8 K/uL [place] Monocytes/100 WBC (Bld) 8.3 % [place] Neutrophils Absolute 11.1 K/uL High 1.4 - 6 .5 K/uL [place] Neutrophils/100 WBC (Bld) 71.4 % [place] Platelets (Bld) [#/Vol] 375 10*3/uL 130 - 400 K/uL [place] RBC (Bld) [#/Vol] 3.57 10*6/uL Low [place] WBC (Bld) [#/Vol] 15.5 10*3/uL High 4.8 - 10.8 K/uL [place] CBC With Platelet and Differ entialon 11-17-2018 Basophils (Bld) [#/Vol] 0.1 10*3/uL Normal 0.0-0.2 [facility] Comment on above: Performed By: #### C MP #### [facility] [address] [place] [address] Basophils/100 WBC (Bld) 0.7 % Normal [facility] Comment on above: Performed By: #### C MP #### [facility] [address] [place] [address] Eosinophils (Bld) [#/Vol] 0.4 10*3/uL Normal 0.0-0.7 [facility] Comment on above: Performed By: #### C MP #### [facility] [address] [place] [address] Eosinophils/100 WBC (Bld) 2.8 % Normal [facility] Comment on above: Performed By: #### C MP #### [facility] [address] [place] [address] Erythrocyte distribution width (RBC) [Ratio] 14.2 % Normal 11.5-14.5 [facility] Comment on above: Performed By: #### C MP #### [facility] [address] [place] [address] Hematocrit (Bld) [Volume fraction] 32.3 % Low 37.0-47.0 [facility] Comment on above: Performed By: #### C MP #### [facility] [address] [place] [address] Hemoglobin (Bld) [Mass/Vol] 10.8 g/dL Low 12.0-16.0 [facility] Comment on above: Performed By: #### C MP #### [facility] [address] [place] [address] Lymphocytes (Bld) [#/Vol] 2.6 10*3/uL Normal 1.0-4.8 [facility] Comment on above: Performed By: #### C MP #### [facility] [address] [place] [address] Lymphocytes/100 WBC (Bld) 16.8 % Normal [facility] Comment on above: Performed By: #### C MP #### [facility] [address] [place] [address] MCH (RBC) [Entitic mass] 30.3 pg Normal 27.0-31.3 [facility] Comment on above: Performed By: #### C MP #### [facility] [address] [place] [address] MCHC (RBC) [Mass/Vol] 33.4 % Normal 33.0-37.0 [facility] Comment on above: Performed By: #### C MP #### [facility] [address] [place] [address] MCV (RBC) [Entitic vol] 90.5 fL Normal 82.0-100.0 [facility] Comment on above: Performed By: #### C MP #### [facility] [address] [place] [address] Monocytes (Bld) [#/Vol] 1.3 10*3/uL Critically high 0.2-0. 8 [facility] Comment on above: Performed By: #### C MP #### [facility] [address] [place] [address] Monocytes/100 WBC (Bld) 8.3 % Normal [facility] Comment on above: Performed By: #### C MP #### [facility] [address] [place] [address] Neutrophils (Bld) [#/Vol] 11.1 10*3/uL Critically high 1.4-6.5 [facility] Comment on above: Performed By: #### C MP #### [facility] [address] [place] [address] Neutrophils/100 WBC (Bld) 71.4 % Normal [facility] Comment on above: Performed By: #### C MP #### [facility] [address] [place] [address] Platelets (Bld) [#/Vol] 375 10*3/uL Normal 130-400 [facility] Comment on above: Performed By: #### C MP #### [facility] [address] [place] [address] RBC (Bld) [#/Vol] 3.57 10*6/uL Low 4.20-5.40 [facility] Comment on above: Performed By: #### C MP #### [facility] [address] [place] [address] WBC (Bld) [#/Vol] 15.5 10*3/uL Critically high 4.8-10.8 [facility] Comment on above: Performed By: #### C MP #### [facility] [address] [place] [address] High Sensitivity CRPon 11-17 High Sensitivity CRP 230.1 mg/L Critically high 0.0-5.0 [facility] Comment on above: Performed By: #### C MP #### [facility] [address] [place] [address] High sensitivity CRPon 11-17 CRP High Sensitivity 230.1 mg/L High 0 - 5 mg/L [place] Interpretation and review of laboratory results Abnormal [place] Sedimentation Rateon 2 019 Sedimentation Rate 50 mm Critically high 0-30 [facility] Comment on above: Performed By: #### C MP #### [facility] [address] [place] [address] Interpretation and review of laboratory results Abnormal [place] Sed Rate 50 mm High 0 - 30 mm [place] DUP LOWER EXTREMITIES VAUGHN ATERAL VENOUSon 11-17-2018 NO DVT IDENTIFIED IN EITHER LOWER EXTREMITY. [place] Joseph, Chpo Incoming Radiant Results From [facility] - 11/17/2018 8:05 AM EDT US DUP [...] NO DVT IDENTIFIED IN EITHER LOWER EXTREMITY. [place] DUP LOWER EXTREMITIES BILATERAL VENOUS : 11/16/2018 CLINICAL HISTORY: LEG SWELLING, PAIN, DVT SUSPECTED . COMPARISON: None available. Grayscale, compression, color and waveform Doppler analysis of both lower extremity deep venous systems was performed with augmentation. FINDINGS: There is no deep venous thrombosis, abnormal masses, fluid collections or other findings of concern identified within either lower extremity. [place] Urine Cultureon 11-17-2018 Bacteria identified Cx Nom (U) No growth 24 hours [place], [place] ORDERED BY: ADDY COKER SOURCE: Urine Clean Catch COLLECTED: 11/15/18 19:05 ANTIBIOTICS AT DI.: RECEIVED : 11/15/18 19:05 [place] CBC With Platelet and Differ entialon 11-16-2018 Neutrophils (Bld) [#/Vol] 15.5 10*3/uL Critically high 1.4-6.5 [facility] Comment on above: Performed By: #### P TT #### [facility] [address] [place] [address] Basophils (Bld) [#/Vol] 0.2 10*3/uL Normal 0.0-0.2 [place] Comment on above: Performed By: #### P TT #### [facility] [address] [place] [address] Basophils/100 WBC (Bld) 0.9 % Normal [place] Comment on above: Performed By: #### P TT #### [facility] [address] [place] [address] Eosinophils (Bld) [#/Vol] 0.1 10*3/uL Normal 0.0-0.7 [place] Comment on above: Performed By: #### P TT #### [facility] [address] [place] [address] Eosinophils/100 WBC (Bld) 0.8 % Normal [place] Comment on above: Performed By: #### P TT #### [facility] [address] [place] [address] Erythrocyte distribution width (RBC) [Ratio] 14.4 % Normal 11.5-14.5 [place] Comment on above: Performed By: #### P TT #### [facility] [address] [place] [address] Hematocrit (Bld) [Volume fraction] 33.4 % Low 37.0-47.0 [place] Comment on above: Performed By: #### P TT #### [facility] [address] [place] [address] Hemoglobin (Bld) [Mass/Vol] 11.0 g/dL Low 12.0-16.0 [place] Comment on above: Performed By: #### P TT #### [facility] [address] [place] [address] Lymphocytes (Bld) [#/Vol] 1.5 10*3/uL Normal 1.0-4.8 [place] Comment on above: Performed By: #### P TT #### [facility] [address] [place] [address] Lymphocytes/100 WBC (Bld) 7.9 % Normal [place] Comment on above: Performed By: #### P TT #### [facility] [address] [place] [address] MCH (RBC) [Entitic mass] 29.4 pg Normal 27.0-31.3 [place] Comment on above: Performed By: #### P TT #### [facility] [address] [place] [address] MCHC (RBC) [Mass/Vol] 32.9 % Low 33.0-37.0 [place] Comment on above: Performed By: #### P TT #### [facility] [address] [facility] [place] [address] MCV (RBC) [Entitic vol] 89.4 fL Normal 82.0-100.0 [place] Comment on above: Performed By: #### P TT #### [facility] [address] [facility] [place] [address] Monocytes (Bld) [#/Vol] 1.3 10*3/uL Critically high 0.2-0. 8 [place] Comment on above: Performed By: #### P TT #### [facility] [address] [facility] [place] [address] Monocytes/100 WBC (Bld) 7.1 % Normal [place] Comment on above: Performed By: #### P TT #### [facility] [address] [place] [address] Neutrophils/100 WBC (Bld) 83.3 % Normal [place] Comment on above: Performed By: #### P TT #### [facility] [address] [place] [address] Platelets (Bld) [#/Vol] 304 10*3/uL Normal 130-400 [place] Comment on above: Performed By: #### P TT #### [facility] [address] [place] [address] RBC (Bld) [#/Vol] 3.74 10*6/uL Low 4.20-5.40 [place] Comment on above: Performed By: #### P TT #### [facility] [address] [facility] [address] WBC (Bld) [#/Vol] 18.6 10*3/uL Critically high 4.8-10.8 [place] Comment on above: Performed By: #### P TT #### [facility] [address] [facility] [address] CBC auto differentialon 10-22 Interpretation and review of laboratory results Abnormal [place] Neutrophils Absolute 15.5 K/uL High 1.4 - 6 .5 K/uL [place] ECHO Complete 2D W Doppler W Coloron 11-16-2018 Transthoracic Echocardiography Report (TTE) Demographics Patient Name MERCY GANDHI Gender Female Patient Number [id number] Race Unknown Ethnicity Visit Number [id number] Room Number R238 Corporate ID Date of Study 11/16/2018 Referring Physician Niki Vazquez DO Number Date of 1935 [employer] [address] Age 83 year(s) Interpreting [facility] Physician Cardiology Cain Quinonez MD Procedure Type [...] Gradient: 4.03 mmHg Estimated PASP: 40.[address] ED Velocity: 1.27 m/s LVOT Peak Velocity: [...] Root: 2.35 cm LVOT Diameter: 1.65 cm [facility] [place], [place] Joseph, Chpo Incoming Cardiovascular Results From [facility] - 11/16/2018 5:05 PM EDT Transthoracic Echocardiography Report (TTE) Demographics Patient Name MADRID HIRAM Gender Female Patient Number [id number] Race Unknown Ethnicity Visit Number [id number] Room Number R238 Corporate ID Date of Study 11/16/2018 Referring Physician DO Natalia Dickens Date of 1935 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 Age 83 year(s) Interpreting [facility] Physician Cardiology Cain Quinonez MD Procedure Type [...] Gradient: 4.03 mmHg Estimated PASP: 40.[address] ED Velocity: 1.27 m/s LVOT Peak Velocity: [...] Root: 2.35 cm LVOT Diameter: 1.65 cm [place] Microscopic Urinalysison Bacteria, UA Negative /HPF [place] Epi Cells 3-5 /HPF [place] Interpretation and review of laboratory results Abnormal [place] RBC (U) [#/Vol] 3-5 Abnormal [place] Renal Epithelial, Urine 0-2 Abnormal /HPF [place] WBC, UA None seen [place] CAROTID ARTERY BILATERALo n 11-16-2018 Peak systolic velocities, ICA/CCA ratios and antegrade [...] Damped resistive CCA decreased decreased resistive CCA [place] Joseph, Chpo Incoming Radiant Results From [facility] - 11/16/2018 10:40 AM EDT Patient : [...] Damped resistive CCA decreased decreased resistive CCA [facility] [place] Patient 5 : 1935 Age: 83 years [...] and noncalcified plaque bilateral carotid arterial systems [place] US DUP LOWER EXTREMITIES VAUGHN ATERAL [...] De Souza MD 11/17/18 Final result Normal [facility] Urine Microscopicon 11-17-19 19 Bacteria LM.HPF (Urine sed) [#/Area] Negative Normal [facility] Comment on above: Performed By: #### P TT #### [facility] [address] [place] [address] Epithelial cells LM Ql (Urine sed) 3-5 Normal [facility] Comment on above: Performed By: #### P TT #### [facility] [address] [place] [address] RBC (U) [#/Vol] 3-5 Abnormal 0-2 [facility] Comment on above: Performed By: #### P TT #### [facility] [address] [place] [address] Urine Renal Epithelial 0-2 Abnormal Me [facility] Comment on above: Performed By: #### P TT #### [facility] [address] [place] [address] WBC (U) [#/Vol] None seen Normal 0-5 [facility] Comment on above: Performed By: #### P TT #### [facility] [address] [place] [address] XR CHEST PORTABLEon 11-17-19 19 Joseph, Chpo Incoming Radiant Results From [facility] - 11/16/2018 10:21 AM EDT EXAMINATION: XR CHEST PORTABLE CLINICAL HISTORY: fever . History of back surgery. COMPARISONS: None available. FINDINGS: Single AP portable view the chest obtained on November 15, 2018 at 2124 hours. The heart is not enlarged. Mediastinum is not widened. Calcified aorta is not dilated. Lungs are clear. The chest wall is unremarkable. CONCLUSION: NO ACUTE PROCESS [place] EXAMINATION: XR CHES T PORTABLE CLINICAL HISTORY: fever . History of back surgery. COMPARISONS: None available. FINDINGS: Single AP portable view the chest obtained on November 15, 2018 at 2124 hours. The heart is not enlarged. Mediastinum is not widened. Calcified aorta is not dilated. Lungs are clear. The chest wall is unremarkable. CONCLUSION: NO ACUTE PROCESS [place] CBC Auto Differentialon 10-22 Anisocytosis Ql (Bld) 1+ [place] Bands Relative 4 % Low 5 - 11 % [place] Basophils (Bld) [#/Vol] 0.0 10*3/uL 0 - 0.2 K/uL [place] Basophils/100 WBC (Bld) 0.6 % [place] Eosinophils (Bld) [#/Vol] 0.0 10*3/uL 0 - 0.7 K/uL [place] Eosinophils/100 WBC (Bld) 0.9 % [place] Erythrocyte distribution width (RBC) [Ratio] 14.6 % High 11.5 - 14.5 % [place] Hematocrit (Bld) [Volume fraction] 33.3 % Low 37 - 47 % [place] Hemoglobin (Bld) [Mass/Vol] 10.9 g/dL Low 12 - 16 g/dL [place] Interpretation and review of laboratory results Abnormal [place] Lymphocytes (Bld) [#/Vol] 3.5 10*3/uL 1 - 4.8 K/uL [place] Lymphocytes/100 WBC (Bld) 17.0 % [place] MCH (RBC) [Entitic mass] 29.8 pg 27 - 31.3 pg [place] MCHC (RBC) [Mass/Vol] 32.9 % Low 33 - 37 % [place] MCV (RBC) [Entitic vol] 90.7 fL 82 - 100 fL [place] Microcytes 1+ [place] Monocytes (Bld) [#/Vol] 0.0 10*3/uL Low 0.2 - 0.8 K/uL [place] Monocytes/100 WBC (Bld) 7.7 % [place] Neutrophils Absolute 17.3 K/uL High 1.4 - 6 .5 K/uL [place] Neutrophils/100 WBC (Bld) 79.0 % [place] PLATELET SLIDE REVIEW Normal [place] Platelets (Bld) [#/Vol] 315 10*3/uL 130 - 400 K/uL [place] RBC (Bld) [#/Vol] 3.67 10*6/uL Low [place] WBC (Bld) [#/Vol] 20.8 10*3/uL High 4.8 - 10.8 K/uL [place] CBC With Platelet No Differe ntialon 11-15-2018 Erythrocyte distribution width (RBC) [Ratio] 14.5 % Normal 11.5-14.5 [facility] Comment on above: Performed By: #### P TT #### [facility] [address] [place] [address] Hematocrit (Bld) [Volume fraction] 36.9 % Low 37.0-47.0 [facility] Comment on above: Performed By: #### P TT #### [facility] [address] [place] [address] Hemoglobin (Bld) [Mass/Vol] 11.9 g/dL Low 12.0-16.0 [facility] Comment on above: Performed By: #### P TT #### [facility] [address] [place] [address] MCH (RBC) [Entitic mass] 29.4 pg Normal 27.0-31.3 [facility] Comment on above: Performed By: #### P TT #### [facility] [address] [place] [address] MCHC (RBC) [Mass/Vol] 32.3 % Low 33.0-37.0 [facility] Comment on above: Performed By: #### P TT #### [facility] [address] [place] [address] MCV (RBC) [Entitic vol] 91.1 fL Normal 82.0-100.0 [facility] Comment on above: Performed By: #### P TT #### [facility] [address] [place] [address] Platelets (Bld) [#/Vol] 341 10*3/uL Normal 130-400 [facility] Comment on above: Performed By: #### P TT #### [facility] [address] [place] [address] RBC (Bld) [#/Vol] 4.05 10*6/uL Low 4.20-5.40 [facility] Comment on above: Performed By: #### P TT #### [facility] [address] [place] [address] WBC (Bld) [#/Vol] 19.8 10*3/uL Critically high 4.8-10.8 [facility] Comment on above: Performed By: #### P TT #### [facility] [address] [place] [address] CBC With Platelet and Differ entialon 11-15-2018 Anisocytosis Ql (Bld) 1+ Normal [facility] Comment on above: Performed By: #### P TT #### [facility] [address] [place] [address] Bands 4 % Low 5-11 [facility] Comment on above: Performed By: #### P TT #### [facility] [address] [place] [address] Basophils (Bld) [#/Vol] 0.0 10*3/uL Normal 0.0-0.2 [facility] Comment on above: Performed By: #### P TT #### [facility] [address] [place] [address] Basophils/100 WBC (Bld) 0.6 % Normal [facility] Comment on above: Performed By: #### P TT #### [facility] [address] [place] [address] Eosinophils (Bld) [#/Vol] 0.0 10*3/uL Normal 0.0-0.7 [facility] Comment on above: Performed By: #### P TT #### [facility] [address] [place] [address] Eosinophils/100 WBC (Bld) 0.9 % Normal [facility] Comment on above: Performed By: #### P TT #### [facility] [address] [place] [address] Lymphocytes (Bld) [#/Vol] 3.5 10*3/uL Normal 1.0-4.8 [facility] Comment on above: Performed By: #### P TT #### [facility] [address] [place] [address] Lymphocytes/100 WBC (Bld) 17.0 % Normal [facility] Comment on above: Performed By: #### P TT #### [facility] [address] [place] [address] Microcytic 1+ Normal [facility] Comment on above: Performed By: #### P TT #### [facility] [address] [place] [address] Monocytes (Bld) [#/Vol] 0.0 10*3/uL Low 0.2-0.8 [facility] Comment on above: Performed By: #### P TT #### [facility] [address] [place] [address] Monocytes/100 WBC (Bld) 7.7 % Normal [facility] Comment on above: Performed By: #### P TT #### [facility] [address] [place] [address] Neutrophils (Bld) [#/Vol] 17.3 10*3/uL Critically high 1.4-6.5 [facility] Comment on above: Performed By: #### P TT #### [facility] [address] [place] [address] Neutrophils/100 WBC (Bld) 79.0 % Normal [facility] Comment on above: Performed By: #### P TT #### [facility] [address] [place] [address] Platelet Slide Review Normal Normal [facility] Comment on above: Performed By: #### P TT #### [facility] [address] [place] [address] Erythrocyte distribution width (RBC) [Ratio] 14.6 % Critically high 11.5-14.5 [facility] Comment on above: Performed By: #### P TT #### [facility] [address] [place] [address] Hematocrit (Bld) [Volume fraction] 33.3 % Low 37.0-47.0 [facility] Comment on above: Performed By: #### P TT #### [facility] [address] [place] [address] Hemoglobin (Bld) [Mass/Vol] 10.9 g/dL Low 12.0-16.0 [facility] Comment on above: Performed By: #### P TT #### [facility] [address] [place] [address] MCH (RBC) [Entitic mass] 29.8 pg Normal 27.0-31.3 [facility] Comment on above: Performed By: #### P TT #### [facility] [address] [place] [address] MCHC (RBC) [Mass/Vol] 32.9 % Low 33.0-37.0 [facility] Comment on above: Performed By: #### P TT #### [facility] [address] [place] [address] MCV (RBC) [Entitic vol] 90.7 fL Normal 82.0-100.0 [facility] Comment on above: Performed By: #### P TT #### [facility] [address] [place] [address] Platelets (Bld) [#/Vol] 315 10*3/uL Normal 130-400 [facility] Comment on above: Performed By: #### P TT #### [facility] [address] [place] [address] RBC (Bld) [#/Vol] 3.67 10*6/uL Low 4.20-5.40 [facility] Comment on above: Performed By: #### P TT #### [facility] [address] [place] [address] WBC (Bld) [#/Vol] 20.8 10*3/uL Critically high 4.8-10.8 [facility] Comment on above: Performed By: #### P TT #### [facility] [address] [place] [address] Comprehensive Metabolic Pane l reflex Mgon 11-15-2018 Albumin [Mass/Vol] 3.3 g/dL Low 3.5-4.6 [facility] Comment on above: Performed By: #### P TT #### [facility] [address] [place] [address] ALP [Catalytic activity/Vol] 71 U/L Normal 40-130 [facility] Comment on above: Performed By: #### P TT #### [facility] [address] [place] [address] ALT [Catalytic activity/Vol] 12 U/L Normal 0-33 [facility] Comment on above: Performed By: #### P TT #### [facility] [address] [place] [address] Anion gap [Moles/Vol] 11 mmol/L Normal 9-15 [facility] Comment on above: Performed By: #### P TT #### [facility] [address] [place] [address] AST [Catalytic activity/Vol] 28 U/L Normal 0-35 [facility] Comment on above: Performed By: #### P TT #### [facility] [address] [place] [address] Bilirubin [Mass/Vol] 0.4 mg/dL Normal 0.2-0.7 [facility] Comment on above: Performed By: #### P TT #### [facility] [address] [place] [address] Calcium [Mass/Vol] 9.1 mg/dL Normal 8.5-9.9 [facility] Comment on above: Performed By: #### P TT #### [facility] [address] [place] [address] Chloride [Moles/Vol] 98 mmol/L Normal 95-107 [facility] Comment on above: Performed By: #### P TT #### [facility] [address] [place] [address] CO2 [Moles/Vol] 27 mmol/L Normal 20-31 [facility] Comment on above: Performed By: #### P TT #### [facility] [address] [place] [address] Creatinine [Mass/Vol] 0.59 mg/dL Normal 0.50-0.90 [facility] Comment on above: Performed By: #### P TT #### [facility] [address] [place] [address] GFR/1.73 sq M predicted among blacks MDRD (S/P/Bld) [Vol rate/Area] mL/min/{1.73_m2} Normal >60 [facility] Comment on above: Result Comment: >60 mL/min/1.73m2 EGFR, calc. for ages 18 and older using the MDRD formula (not corrected for weight), is valid for stable renal function. Performed By: #### P TT #### [facility] [address] [place] [address] GFR/1.73 sq M.predicted MDRD (S/P/Bld) [Vol rate/Area] mL/min/{1.73_m2} Normal >60 [facility] Comment on above: Result Comment: >60 mL/min/1.73m2 EGFR, calc. for ages 18 and older using the MDRD formula (not corrected for weight), is valid for stable renal function. Performed By: #### P TT #### [facility] [address] [place] [address] Globulin (S) [Mass/Vol] 3.2 g/dL Normal 2.3-3.5 [facility] Comment on above: Performed By: #### P TT #### [facility] [address] [place] [address] Glucose [Mass/Vol] 123 mg/dL Critically high 70-99 [facility] Comment on above: Performed By: #### P TT #### [facility] [address] [place] [address] Potassium reflex Mg 3.8 mEq/L Normal 3.4-4.9 [facility] Comment on above: Performed By: #### P TT #### [facility] [address] [place] [address] Protein [Mass/Vol] 6.5 g/dL Normal 6.3-8.0 [facility] Comment on above: Performed By: #### P TT #### [facility] [address] [place] [address] Sodium [Moles/Vol] 136 mmol/L Normal 135-144 [facility] Comment on above: Performed By: #### P TT #### [facility] [address] [place] [address] Urea nitrogen [Mass/Vol] 6 mg/dL Low 8-23 [facility] Comment on above: Performed By: #### P TT #### [facility] [address] [place] [address] Culture, Blood 2on 9 Culture, Blood 2 ORDERED BY: ADDY COKER SOURCE: Blood COLLECTED: 11/15/18 16:37 ANTIBIOTICS AT DI.: RECEIVED : 11/15/18 16:42 Culture, Blood 2 FINAL 11/20/18 18:15 No growth after 5 days of incubation. Normal [facility] Comment on above: Performed By: #### C MP #### [facility] [address] [place] [address] Culture, Urineon 11-15-2018 Culture, Urine ORDERED BY: ADDY COKER SOURCE: Urine Clean Catch COLLECTED: 11/15/18 19:05 ANTIBIOTICS AT DI.: RECEIVED : 11/15/18 19:05 Culture, Urine FINAL 11/17/18 07:28 No growth 24 hours Normal [facility] Comment on above: Performed By: #### C MP #### [facility] [address] [place] [address] URINE RT REFLEX TO CULTUREon 11-15-2018 Bilirubin Urine Negative Negative [place] Blood, Urine TRACE Abnormal Negative [place] Clarity, UA Clear Clear [place] Color, UA Yellow Straw/Yello w [place] Glucose, Ur Negative Negative mg/dL [place] Interpretation and review of laboratory results Abnormal [place] Ketones Ql (U) Negative Negative mg/dL [place] Leukocyte esterase Test strip Ql (U) Negative Negative [place] Nitrite, Urine Negative Negative [place] pH, UA 7.0 [place] Protein (U) [Mass/Vol] 30 mg/dL Abnormal Negative [place] Specific Fults, UA 1.014 [place], [place] Urine Reflex to Culture YES [place] Urobilinogen, Urine 0.2 <2.0 E.U./dL [place] US CAROTID ARTERY BILATERALo n 11-15-2018 [...] Mohsen Childers MD 11/16/18 Final result Normal [facility] Urinalysis, reflex to cultur kendall 11-15-2018 Bilirubin Ql (U) Negative Normal Negative [facility] Comment on above: Performed By: #### P TT #### [facility] [address] [place] [address] Clarity (U) Clear Normal Clear [facility] Comment on above: Performed By: #### P TT #### [facility] [address] [place] [address] Color (U) Yellow Normal Straw/[place] [facility] Comment on above: Performed By: #### P TT #### [facility] [address] [place] [address] Glucose Ql (U) Negative Normal Negative [facility] Comment on above: Performed By: #### P TT #### [facility] [address] [place] [address] Hemoglobin Ql (U) TRACE Abnormal Negative [facility] Comment on above: Performed By: #### P TT #### [facility] [address] [place] [address] Ketones Ql (U) Negative Normal Negative [facility] Comment on above: Performed By: #### P TT #### [facility] [address] [place] [address] Leukocyte esterase Test strip Ql (U) Negative Normal Negative [facility] Comment on above: Performed By: #### P TT #### [facility] [address] [place] [address] Nitrite Ql (U) Negative Normal Negative [facility] Comment on above: Performed By: #### P TT #### [facility] [address] [place] [address] pH (U) 7.0 [pH] Normal 5.0-9.0 [facility] Comment on above: Performed By: #### P TT #### [facility] [address] [place] [address] Protein Ql (U) 30 mg/dL Abnormal Negative [facility] Comment on above: Performed By: #### P TT #### [facility] [address] [place] [address] Specific gravity (U) [Rel density] 1.014 Normal 1.005-1.03 [facility] Comment on above: Performed By: #### P TT #### [facility] [address] [place] [address] Urine Reflexed to Culture YES Normal [facility] Comment on above: Performed By: #### P TT #### [facility] [address] [place] [address] Urobilinogen Qn (U) 0.2 {Juan'U}/dL Normal < 2.0 [facility] Comment on above: Performed By: #### P TT #### [facility] [address] [place] [address] XR CHEST PORTABLEon 11-16-19 19 XR CHEST [...] Pearl Varghese MD 11/16/18 Final result Normal [facility] Basic Metabolic Panel Reflex Mgon 11-14-2018 Anion gap [Moles/Vol] 10 mmol/L Normal 9-15 [facility] Comment on above: Performed By: #### P T #### [facility] [address] [place] [address] Calcium [Mass/Vol] 8.4 mg/dL Low 8.5-9.9 [facility] Comment on above: Performed By: #### P T #### [facility] [address] [place] [address] Chloride [Moles/Vol] 100 mmol/L Normal 95-107 [facility] Comment on above: Performed By: #### P T #### [facility] [address] [place] [address] CO2 [Moles/Vol] 25 mmol/L Normal 20-31 [facility] Comment on above: Performed By: #### P T #### [facility] [address] [place] [address] Creatinine [Mass/Vol] 0.66 mg/dL Normal 0.50-0.90 [facility] Comment on above: Performed By: #### P T #### [facility] [address] [place] [address] GFR/1.73 sq M predicted among blacks MDRD (S/P/Bld) [Vol rate/Area] mL/min/{1.73_m2} Normal >60 [facility] Comment on above: Result Comment: >60 mL/min/1.73m2 EGFR, calc. for ages 18 and older using the MDRD formula (not corrected for weight), is valid for stable renal function. Performed By: #### P T #### [facility] [address] [place] [address] GFR/1.73 sq M.predicted MDRD (S/P/Bld) [Vol rate/Area] mL/min/{1.73_m2} Normal >60 [facility] Comment on above: Result Comment: >60 mL/min/1.73m2 EGFR, calc. for ages 18 and older using the MDRD formula (not corrected for weight), is valid for stable renal function. Performed By: #### P T #### [facility] [address] [place] [address] Glucose [Mass/Vol] 144 mg/dL Critically high 70-99 [facility] Comment on above: Performed By: #### P T #### [facility] [address] [place] [address] Potassium reflex Mg 4.1 mEq/L Normal 3.4-4.9 [facility] Comment on above: Performed By: #### P T #### [facility] [address] [place] [address] Sodium [Moles/Vol] 135 mmol/L Normal 135-144 [facility] Comment on above: Performed By: #### P T #### [facility] [address] [place] [address] Urea nitrogen [Mass/Vol] 6 mg/dL Low 8-23 [facility] Comment on above: Performed By: #### P T #### [facility] [address] [place] [address] CBC With Platelet and Differ entialon 11-14-2018 Basophils (Bld) [#/Vol] 0.1 10*3/uL Normal 0.0-0.2 [facility] Comment on above: Performed By: #### P T #### [facility] [address] [place] [address] Basophils/100 WBC (Bld) 0.5 % Normal [facility] Comment on above: Performed By: #### P T #### [facility] [address] [place] [address] Eosinophils (Bld) [#/Vol] 0.1 10*3/uL Normal 0.0-0.7 [facility] Comment on above: Performed By: #### P T #### [facility] [address] [place] [address] Eosinophils/100 WBC (Bld) 0.8 % Normal [facility] Comment on above: Performed By: #### P T #### [facility] [address] [place] [address] Erythrocyte distribution width (RBC) [Ratio] 14.1 % Normal 11.5-14.5 [facility] Comment on above: Performed By: #### P T #### [facility] [address] [place] [address] Hematocrit (Bld) [Volume fraction] 35.4 % Low 37.0-47.0 [facility] Comment on above: Performed By: #### P T #### [facility] [address] [place] [address] Hemoglobin (Bld) [Mass/Vol] 11.7 g/dL Low 12.0-16.0 [facility] Comment on above: Performed By: #### P T #### [facility] [address] [place] [address] Lymphocytes (Bld) [#/Vol] 2.7 10*3/uL Normal 1.0-4.8 [facility] Comment on above: Performed By: #### P T #### [facility] [address] [place] [address] Lymphocytes/100 WBC (Bld) 15.7 % Normal [facility] Comment on above: Performed By: #### P T #### [facility] [address] [place] [address] MCH (RBC) [Entitic mass] 29.7 pg Normal 27.0-31.3 [facility] Comment on above: Performed By: #### P T #### [facility] [address] [place] [address] MCHC (RBC) [Mass/Vol] 33.1 % Normal 33.0-37.0 [facility] Comment on above: Performed By: #### P T #### [facility] [address] [place] [address] MCV (RBC) [Entitic vol] 89.6 fL Normal 82.0-100.0 [facility] Comment on above: Performed By: #### P T #### [facility] [address] [place] [address] Monocytes (Bld) [#/Vol] 1.4 10*3/uL Critically high 0.2-0. 8 [facility] Comment on above: Performed By: #### P T #### [facility] [address] [place] [address] Monocytes/100 WBC (Bld) 7.9 % Normal [facility] Comment on above: Performed By: #### P T #### [facility] [address] [place] [address] Neutrophils (Bld) [#/Vol] 12.8 10*3/uL Critically high 1.4-6.5 [facility] Comment on above: Performed By: #### P T #### [facility] [address] [place] [address] Neutrophils/100 WBC (Bld) 75.1 % Normal [facility] Comment on above: Performed By: #### P T #### [facility] [address] [place] [address] Platelets (Bld) [#/Vol] 345 10*3/uL Normal 130-400 [facility] Comment on above: Performed By: #### P T #### [facility] [address] [place] [address] RBC (Bld) [#/Vol] 3.95 10*6/uL Low 4.20-5.40 [facility] Comment on above: Performed By: #### P T #### [facility] [address] [place] [address] WBC (Bld) [#/Vol] 17.0 10*3/uL Critically high 4.8-10.8 [facility] Comment on above: Performed By: #### P T #### [facility] [address] [place] [address] POCT Glucoseon 11-14-2018 Glucose [Mass/Vol] 116 mg/dL Critically high 60-115 [facility] Comment on above: Performed By: #### P T #### [facility] [address] [place] [address] POC Performed on ACCU-CHEK Normal [facility] Comment on above: Performed By: #### P T #### [facility] [address] [place] [address] XR LUMBAR SPINE (2-3 VIEWS)o n 11-14-2018 [...] Mohsen Childers MD 11/14/18 Final result Normal [facility] Basic Metabolic Panel Reflex Mgon 11-13-2018 Anion gap [Moles/Vol] 13 mmol/L Normal 9-15 [facility] Comment on above: Performed By: #### P T #### [facility] [address] [place] [address] Calcium [Mass/Vol] 9.0 mg/dL Normal 8.5-9.9 [facility] Comment on above: Performed By: #### P T #### [facility] [address] [place] [address] Chloride [Moles/Vol] 101 mmol/L Normal 95-107 [facility] Comment on above: Performed By: #### P T #### [facility] [address] [place] [address] CO2 [Moles/Vol] 24 mmol/L Normal 20-31 [facility] Comment on above: Performed By: #### P T #### [facility] [address] [place] [address] Creatinine [Mass/Vol] 0.62 mg/dL Normal 0.50-0.90 [facility] Comment on above: Performed By: #### P T #### [facility] [address] [place] [address] GFR/1.73 sq M predicted among blacks MDRD (S/P/Bld) [Vol rate/Area] mL/min/{1.73_m2} Normal >60 [facility] Comment on above: Result Comment: >60 mL/min/1.73m2 EGFR, calc. for ages 18 and older using the MDRD formula (not corrected for weight), is valid for stable renal function. Performed By: #### P T #### [facility] [address] [place] [address] GFR/1.73 sq M.predicted MDRD (S/P/Bld) [Vol rate/Area] mL/min/{1.73_m2} Normal >60 [facility] Comment on above: Result Comment: >60 mL/min/1.73m2 EGFR, calc. for ages 18 and older using the MDRD formula (not corrected for weight), is valid for stable renal function. Performed By: #### P T #### [facility] [address] [place] [address] Glucose [Mass/Vol] 136 mg/dL Critically high 70-99 [facility] Comment on above: Performed By: #### P T #### [facility] [address] [place] [address] Potassium reflex Mg 3.6 mEq/L Normal 3.4-4.9 [facility] Comment on above: Performed By: #### P T #### [facility] [address] [place] [address] Sodium [Moles/Vol] 138 mmol/L Normal 135-144 [facility] Comment on above: Performed By: #### P T #### [facility] [address] [place] [address] Urea nitrogen [Mass/Vol] 7 mg/dL Low 8-23 [facility] Comment on above: Performed By: #### P T #### [facility] [address] [place] [address] CBC With Platelet No Differe ntialon 11-13-2018 Erythrocyte distribution width (RBC) [Ratio] 14.2 % Normal 11.5-14.5 [facility] Comment on above: Performed By: #### P T #### [facility] [address] [place] [address] Hematocrit (Bld) [Volume fraction] 40.3 % Normal 37.0-47.0 [facility] Comment on above: Performed By: #### P T #### [facility] [address] [place] [address] Hemoglobin (Bld) [Mass/Vol] 13.1 g/dL Normal 12.0-16.0 [facility] Comment on above: Performed By: #### P T #### [facility] [address] [place] [address] MCH (RBC) [Entitic mass] 29.1 pg Normal 27.0-31.3 [facility] Comment on above: Performed By: #### P T #### [facility] [address] [place] [address] MCHC (RBC) [Mass/Vol] 32.4 % Low 33.0-37.0 [facility] Comment on above: Performed By: #### P T #### [facility] [address] [place] [address] MCV (RBC) [Entitic vol] 89.9 fL Normal 82.0-100.0 [facility] Comment on above: Performed By: #### P T #### [facility] [address] [place] [address] Platelets (Bld) [#/Vol] 394 10*3/uL Normal 130-400 [facility] Comment on above: Performed By: #### P T #### [facility] [address] [place] [address] RBC (Bld) [#/Vol] 4.48 10*6/uL Normal 4.20-5.40 [facility] Comment on above: Performed By: #### P T #### [facility] [address] [place] [address] WBC (Bld) [#/Vol] 11.8 10*3/uL Critically high 4.8-10.8 [facility] Comment on above: Performed By: #### P T #### [facility] [address] [place] [id number] Culture, MRSA Screenon 11-13 Culture, MRSA Screen ORDERED BY: BRENNAN HERRON SOURCE: Nares COLLECTED: 11/13/18 09:29 ANTIBIOTICS AT DI.: RECEIVED : 11/13/18 09:29 Culture, MRSA Screen FINAL 11/14/18 08:02 No MRSA isolated Normal [facility] Comment on above: Performed By: #### P T #### [facility] [address] [place] [id number] FLUORO FOR SURGICAL PROCEDUR ESon 11-13-2018 FLUORO [...] Mohsen Childers MD 11/13/18 Final result Normal [facility] Surgical Specimenon 11-14-19 19 Surgical Specimen [facility] [address] [place], [place] [address], [place] [address] FINAL SURGICAL PATHOLOGY REPORT Patient Name: HIRAM MADRID Accession No: [id number] Age Sex: 1935 Location: [facility] [id number] Account No: [id number] Collected: 11/13/2018 Med Rec No: [id number] Received: 11/14/2018 Attend Phys: LENNY CORRAL Completed: 11/15/2018 Perform Phys: LENNY CORRAL 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 UVALDO/UVALDO CLINICAL INFORMATION: Stenosis, radiculopathy, spondylosis, disc. SPECIMEN: Disc GROSS DESCRIPTION: Specimen received in formalin in a container labeled with patient's name and designated as spine . Specimen consists of multiple brownish-marti soft firm tissue fragments measuring in aggregate 3.0 x 2.0 x 0.4 cm. Sections representatives are submitted in two cassettes after brief decalcification. UVALDO/NIKKY CPT: 96129 X1 82197 X1 STANLEY GRAFF M.D. 11/15/2018 Electronically signed out by Page 1 of 1 [facility] Comment on above: Performed By: #### P TT #### [facility] [address] [place] [address] Type and Screen Capture 3 sc rn cellon 11-13-2018 Type and Screen Capture 3 scrn cell PATIENT: MERCY GANDHI LOC: ERICK,ORKAMRONOL,NON BILL# : [id number] : 1935 SEX: F ORDERED BY: GOPAL AMIN ORDERED : 11/13/2018 08:10 COLLECTED: 11/13/2018 09:24 ORDER : [id number] RECEIVED : 11/13/2018 09:24 TEST NAME RESULT UNITS RANGES ABN FL ST ABORH Capture A POS F Antibody 3 Cell Scrn Captu NEG F Normal [facility] Comment on above: Performed By: #### T S3C #### [facility] [address] [place] [address] XR SPINE ENTIRE (2-3 VIEWS)o n 11-13-2018 [...] Mohsen Childers MD 11/13/18 Final result Normal [facility] MRI LUMBAR SPINE W WO CONTRA STon 11-05-2018 EXAMINATION: MRI LUMBAR SPINE W WO CONTRAST [...] SIGNS OF UNDERLYING PATHOLOGY OR RECENT INJURY. [facility] [place], [place] Joseph, Chpo Incoming Radiant Results From Neura/Zapstitch - 11/05/2018 3:07 PM EDT EXAMINATION: MRI [...] SIGNS OF UNDERLYING PATHOLOGY OR RECENT INJURY. [facility], [place] MRI LUMBAR SPINE W WO CONTRAST EXAMINATION: [...] Pearl Varghese MD 11/05/18 Final result Normal [facility] Otheron 11-05-2018 Joseph, Chpo Incoming Radiant Results From [employer]/Zapstitch - 11/05/2018 1:21 PM EDT EXAMINATION: XR [...] AND POSTOPERATIVE FINDINGS, WITHOUT ACUTE SUPERIMPOSED ABNORMALITY. [place] EXAMINATION: XR LUMB AR SPINE (MIN [...] AND POSTOPERATIVE FINDINGS, WITHOUT ACUTE SUPERIMPOSED ABNORMALITY. [place] XR CHEST (2 VW)on 11-05-2018 XR [...] Pearl Varghese MD 11/05/18 Final result Normal [facility] XR LUMBAR SPINE (MIN 4 VIEWS )on [...] Pearl Varghese MD 11/05/18 Final result Normal [facility] APTTon 11-04-2018 aPTT Coag (Bld) [Time] 27.9 s [facility] [place], [place] Comment on above: Effective 09/06/2018: Please note methodology and/or reference ranges have changed. aPTT - Heparin Therapeutic Range: 74.0 - 106 seconds C-Reactive Proteinon 11-04- 019 CRP [Mass/Vol] 1.3 mg/L Normal 0.0-5.0 [facility] Comment on above: Performed By: #### C RP #### [facility] [address] [place] [address] CRP [Mass/Vol] 1.3 mg/L 0 - 5 mg/L [place] CBC Auto Differentialon 10-21 Basophils (Bld) [#/Vol] 0.1 10*3/uL 0 - 0.2 K/uL [place] Basophils/100 WBC (Bld) 1.1 % [place], [place] Eosinophils (Bld) [#/Vol] 0.2 10*3/uL 0 - 0.7 K/uL [place] Eosinophils/100 WBC (Bld) 1.3 % [place] Erythrocyte distribution width (RBC) [Ratio] 13.9 % 11.5 - 14.5 % [place] Hematocrit (Bld) [Volume fraction] 41.3 % 37 - 47 % [place] Hemoglobin (Bld) [Mass/Vol] 14.3 g/dL 12 - 16 g/dL [place] Interpretation and review of laboratory results Abnormal [place] Lymphocytes (Bld) [#/Vol] 3.5 10*3/uL 1 - 4.8 K/uL [place] Lymphocytes/100 WBC (Bld) 28.2 % [place] MCH (RBC) [Entitic mass] 30.5 pg 27 - 31.3 pg [place] MCHC (RBC) [Mass/Vol] 34.6 % 33 - 37 % [place] MCV (RBC) [Entitic vol] 88.0 fL 82 - 100 fL [place] Monocytes (Bld) [#/Vol] 0.8 10*3/uL 0.2 - 0.8 K/uL [place] Monocytes/100 WBC (Bld) 6.8 % [place], [place] Neutrophils Absolute 7.7 K/uL High 1.4 - 6 .5 K/uL [place] Neutrophils/100 WBC (Bld) 62.6 % [place], [place] Platelets (Bld) [#/Vol] 435 10*3/uL High 130 - 400 K/uL [place] RBC (Bld) [#/Vol] 4.69 10*6/uL [place] WBC (Bld) [#/Vol] 12.4 10*3/uL High 4.8 - 10.8 K/uL [place] CBC With Platelet and Differ entialon 11-04-2018 Basophils (Bld) [#/Vol] 0.1 10*3/uL Normal 0.0-0.2 [facility] Comment on above: Performed By: #### C BCWD #### [facility] [address] [place] [address] Basophils/100 WBC (Bld) 1.1 % Normal [facility] Comment on above: Performed By: #### C BCWD #### [facility] [address] [place] [address] Eosinophils (Bld) [#/Vol] 0.2 10*3/uL Normal 0.0-0.7 [facility] Comment on above: Performed By: #### C BCWD #### [facility] [address] [place] [address] Eosinophils/100 WBC (Bld) 1.3 % Normal [facility] Comment on above: Performed By: #### C BCWD #### [facility] [address] [place] [address] Erythrocyte distribution width (RBC) [Ratio] 13.9 % Normal 11.5-14.5 [facility] Comment on above: Performed By: #### C BCWD #### [facility] [address] [place] [address] Hematocrit (Bld) [Volume fraction] 41.3 % Normal 37.0-47.0 [facility] Comment on above: Performed By: #### C BCWD #### [facility] [address] [place] [address] Hemoglobin (Bld) [Mass/Vol] 14.3 g/dL Normal 12.0-16.0 [facility] Comment on above: Performed By: #### C BCWD #### [facility] [address] [place] [address] Lymphocytes (Bld) [#/Vol] 3.5 10*3/uL Normal 1.0-4.8 [facility] Comment on above: Performed By: #### C BCWD #### [facility] [address] [place] [address] Lymphocytes/100 WBC (Bld) 28.2 % Normal [facility] Comment on above: Performed By: #### C BCWD #### [facility] [address] [place] [address] MCH (RBC) [Entitic mass] 30.5 pg Normal 27.0-31.3 [facility] Comment on above: Performed By: #### C BCWD #### [facility] [address] [place] [address] MCHC (RBC) [Mass/Vol] 34.6 % Normal 33.0-37.0 [facility] Comment on above: Performed By: #### C BCWD #### [facility] [address] [place] [address] MCV (RBC) [Entitic vol] 88.0 fL Normal 82.0-100.0 [facility] Comment on above: Performed By: #### C BCWD #### [facility] [address] [place] [address] Monocytes (Bld) [#/Vol] 0.8 10*3/uL Normal 0.2-0.8 [facility] Comment on above: Performed By: #### C BCWD #### [facility] [address] [place] [address] Monocytes/100 WBC (Bld) 6.8 % Normal [facility] Comment on above: Performed By: #### C BCWD #### [facility] [address] [place] [address] Neutrophils (Bld) [#/Vol] 7.7 10*3/uL Critically high 1.4-6.5 [facility] Comment on above: Performed By: #### C BCWD #### [facility] [address] [place] [address] Neutrophils/100 WBC (Bld) 62.6 % Normal [facility] Comment on above: Performed By: #### C BCWD #### [facility] [address] [place] [address] Platelets (Bld) [#/Vol] 435 10*3/uL Critically high 130-40 0 [facility] Comment on above: Performed By: #### C BCWD #### [facility] [address] [place] [address] RBC (Bld) [#/Vol] 4.69 10*6/uL Normal 4.20-5.40 [facility] Comment on above: Performed By: #### C BCWD #### [facility] [address] [place] [address] WBC (Bld) [#/Vol] 12.4 10*3/uL Critically high 4.8-10.8 [facility] Comment on above: Performed By: #### C BCWD #### [facility] [address] [place] [address] Comprehensive Metabolic Pane bebeto 11-04-2018 Anion gap [Moles/Vol] 14 mmol/L Normal 9-15 [facility] Comment on above: Order Comment: CALL [facility] tel. [phone], Potassium results called to and read back by onofre Millan RN, 11/04/2018 16:24, by WEBAM Performed By: #### C MP #### [facility] [address] [place] [address] Bilirubin [Mass/Vol] 0.4 mg/dL Normal 0.2-0.7 [facility] Comment on above: Order Comment: CALL [facility] tel. [phone], Potassium results called to and read back by onofre Millan RN, 11/04/2018 16:24, by WEBAM Performed By: #### C MP #### [facility] [address] [place] [address] GFR/1.73 sq M predicted among blacks MDRD (S/P/Bld) [Vol rate/Area] mL/min/{1.73_m2} Normal >60 [facility] Comment on above: Order Comment: CALL [facility] tel. [phone], Potassium results called to and read back by onofre Millan RN, 11/04/2018 16:24, by WEBAM Result Comment: >60 mL/min/1.73m2 EGFR, calc. for ages 18 and older using the MDRD formula (not corrected for weight), is valid for stable renal function. Performed By: #### C MP #### [facility] [address] [place] [address] GFR/1.73 sq M.predicted MDRD (S/P/Bld) [Vol rate/Area] mL/min/{1.73_m2} Normal >60 [facility] Comment on above: Order Comment: CALL [facility] tel. [phone], Potassium results called to and read back by onofre Millan RN, 11/04/2018 16:24, by WEBAM Result Comment: >60 mL/min/1.73m2 EGFR, calc. for ages 18 and older using the MDRD formula (not corrected for weight), is valid for stable renal function. Performed By: #### C MP #### [facility] [address] [place] [address] Albumin [Mass/Vol] 4.5 g/dL Normal 3.5-4.6 [facility] [place] Comment on above: Order Comment: CALL [facility] tel. [phone], Potassium results called to and read back by onofre Millan RN, 11/04/2018 16:24, by WEBAM Performed By: #### C MP #### [facility] [address] [place] [address] ALP [Catalytic activity/Vol] 76 U/L Normal 40-130 [facility] [place] Comment on above: Order Comment: CALL [facility]ED tel. [phone], Potassium results called to and read back by onofre Millan RN, 11/04/2018 16:24, by WEBAM Performed By: #### C MP #### [facility] [address] [place] [address] ALT [Catalytic activity/Vol] 15 U/L Normal 0-33 [facility] [place] Comment on above: Order Comment: CALL [facility] tel. [phone], Potassium results called to and read back by onofre Millan RN, 11/04/2018 16:24, by WEBAM Performed By: #### C MP #### [facility] [address] [employer] [place] [address] AST [Catalytic activity/Vol] 20 U/L Normal 0-35 [facility] [place] Comment on above: Order Comment: CALL [facility]ED tel. [phone], Potassium results called to and read back by onofre Millan RN, 11/04/2018 16:24, by WEBAM Performed By: #### C MP #### [facility] [address] [place] [address] Calcium [Mass/Vol] 9.9 mg/dL Normal 8.5-9.9 [facility] [place] Comment on above: Order Comment: CALL [facility] tel. [phone], Potassium results called to and read back by onofre Millan RN, 11/04/2018 16:24, by WEBAM Performed By: #### C MP #### [facility] [address] [place] [address] Chloride [Moles/Vol] 96 mmol/L Normal 95-107 [facility] [place], [place] Comment on above: Order Comment: CALL [facility]ED tel. [phone], Potassium results called to and read back by onofre Millan RN, 11/04/2018 16:24, by WEBAM Performed By: #### C MP #### [facility] [address] [place] [address] CO2 [Moles/Vol] 24 mmol/L Normal 20-31 [place] Comment on above: Order Comment: CALL [facility] tel. [phone], Potassium results called to and read back by onofre Millan RN, 11/04/2018 16:24, by WEBAM Performed By: #### C MP #### [facility] [address] [place] [address] Creatinine [Mass/Vol] 0.67 mg/dL Normal 0.50-0.90 [place], [place] Comment on above: Order Comment: CALL [facility] tel. [phone], Potassium results called to and read back by onofre Millan RN, 11/04/2018 16:24, by WEBAM Performed By: #### C MP #### [facility] [address] [place] [address] Globulin (S) [Mass/Vol] 2.8 g/dL Normal 2.3-3.5 [place], [place] Comment on above: Order Comment: CALL [facility] tel. [phone], Potassium results called to and read back by onofre Millan RN, 11/04/2018 16:24, by WEBAM Performed By: #### C MP #### [facility] [address] [place] [address] Glucose [Mass/Vol] 109 mg/dL Critically high 70-99 [place] Comment on above: Order Comment: CALL [facility] tel. [phone], Potassium results called to and read back by onofre Millan RN, 11/04/2018 16:24, by WEBAM Performed By: #### C MP #### [facility] [address] [place] [address] Potassium [Moles/Vol] 3.0 mmol/L Critically low 3.4-4.9 [place] Comment on above: Order Comment: CALL [facility] tel. [phone], Potassium results called to and read back by onofre Millan RN, 11/04/2018 16:24, by WEBAM Performed By: #### C MP #### [facility] [address] [place] [address] Protein [Mass/Vol] 7.3 g/dL Normal 6.3-8.0 [place] Comment on above: Order Comment: CALL [facility] tel. [phone], Potassium results called to and read back by onofre Millan RN, 11/04/2018 16:24, by WEBAM Performed By: #### C MP #### [facility] [address] [place] [address] Sodium [Moles/Vol] 134 mmol/L Low 135-144 [place] Comment on above: Order Comment: CALL [facility] tel. [phone], Potassium results called to and read back by onofre Millan RN, 11/04/2018 16:24, by WEBAM Performed By: #### C MP #### [facility] [address] [place] [address] Urea nitrogen [Mass/Vol] 8 mg/dL Normal 8-23 [place] Comment on above: Order Comment: CALL [facility] ED tel. [phone], Potassium results called to and read back by onofre Millan RN, 11/04/2018 16:24, by WEBAM Performed By: #### C MP #### [facility] [address] [facility] [address] Anion gap [Moles/Vol] 14 mmol/L [place] Bilirubin Ql (U) 0.4 mg/dL 0.2 - 0.7 mg/dL [place] GFR >60.0 >60 [place], [place] Comment on above: >60 mL/min/1.73m2 EG FR, calc. for ages 18 and older using the MDRD formula (not corrected for weight), is valid for stable renal function. GFR Non- >60.0 >60 [place] Comment on above: >60 mL/min/1.73m2 EG FR, calc. for ages 18 and older using the MDRD formula (not corrected for weight), is valid for stable renal function. Interpretation and review of laboratory results Abnormal [place] Potassium [Moles/Vol] CALL [facility]f [facility]ED tel . [phone], Potassium results called to and read back by onofre Millan RN, 11/04/2018 16:24, by TAMMY [place] Partial Thromboplastin Timeo n 11-04-2018 aPTT Coag (Bld) [Time] 27.9 s Normal 24.4-36.8 [facility] Comment on above: Result Comment: Effe ctive 09/06/2018: Please note methodology and/or reference ranges have changed. aPTT - Heparin Therapeutic Range: 74.0 - 106 seconds Performed By: #### P TT #### [facility] [address] [facility] [address] Prothrombin Timeon 9 INR Coag (PPP) [Relative time] 0.9 {INR} Normal [facility] Comment on above: Result Comment: Warf camden Therapy INR Therapeutic: 2.0-3.0 With Mechanical Valve: >2.5 Low-intensity Therapeutic Range: 1.5-2.0 Mod-intensity Therapeutic Range: 2.0-3.0 High-intensity Therapeutic Range: 2.5-3.5 HIgh-intensity Therapeutic Range: 3.0-4.0 Common Critical/Alarm Value: 5.0 Common Upper Limit Reported: 10.0 Effective 08/30/2018: Please note methodology and/or reference ranges have changed. Performed By: #### P T #### [facility] [address] [facility] [address] PT Coag (PPP) [Time] 12.1 s Low 12.3-14.9 [facility] Comment on above: Result Comment: Effe ctive 08/30/18 Please note methodology and/or reference ranges have changed. Performed By: #### P T #### [facility] [address] [place] [address] Protime-INRon 11-04-2018 INR Coag (PPP) [Relative time] 0.9 {INR} [place], [place] Comment on above: Warfarin Therapy IN R Therapeutic: 2.0-3.0 With Mechanical Valve: >2.5 Low-intensity Therapeutic Range: 1.5-2.0 Mod-intensity Therapeutic Range: 2.0-3.0 High-intensity Therapeutic Range: 2.5-3.5 HIgh-intensity Therapeutic Range: 3.0-4.0 Common Critical/Alarm Value: 5.0 Common Upper Limit Reported: 10.0 Effective 08/30/2018: Please note methodology and/or reference ranges have changed. Interpretation and review of laboratory results Abnormal [place] PT Coag (PPP) [Time] 12.1 s Low [place], [place] Comment on above: Effective 08/30/18 Please note methodology and/or reference ranges have changed. Sedimentation Rateon 019 Sedimentation Rate 12 mm Normal 0-30 [facility] Comment on above: Performed By: #### E SR #### [facility] [address] [place] [address] Sed Rate 12 mm 0 - 30 mm [place], [place] Vital Signs Date Time Vital Sign Value Performing Clinician Ivonne ledesma 12-22-2022 11:40-0400 Blood Pressure Location MIKAYLA WEISS [facility] 12-22-2022 11:40-0400 Diastolic blood pressure 84 mm[Hg] MIKAYLA WEISS [facility] 12-22-2022 11:40-0400 Systolic blood pressure 124 mm[Hg] MIKAYLA WEISS [facility] 08-06-2022 00:10-0400 Body temperature 97.3 [degF] MD Addy Daniels Work Phone: [facility] 08-06-2022 00:10-0400 Diastolic blood pressure 74 mm[Hg] MD Addy Daniels Work Phone: [facility] 08-06-2022 00:10-0400 Heart rate 80 /min MD Addy Daniels Work Phone: [facility] 08-06-2022 00:10-0400 Respiratory rate 18 /min MD Addy Daniels Work Phone: [facility] 08-06-2022 00:10-0400 SaO2% (BldA) [Mass fraction] 96 % MD Addy Daniels Work Phone: [facility] 08-06-2022 00:10-0400 Systolic blood pressure 177 mm[Hg] MD Addy Daniels Work Phone: [facility] 08-05-2022 19:51-0400 Body height 154.94 cm MD Addy Daniels Work Phone: [facility] 08-05-2022 19:51-0400 Body weight 67.6 kg MD Addy Daniels Work Phone: [facility] 11-20-2018 07:02-0400 Body Temperature 97 [degF] [facility] [place] 11-20-2018 07:02-0400 BP Diastolic 61 mm[Hg] [facility] [place] 11-20-2018 07:02-0400 BP Systolic 153 mm[Hg] [facility] [place] 11-20-2018 07:02-0400 Pulse (Heart Rate) 75 /min [facility] [place] 11-20-2018 07:02-0400 Pulse Oximetry 97 % [facility] [place] 11-20-2018 07:02-0400 Respiratory Rate 17 /min [facility] [place] 11-17-2018 05:54-0400 BMI (Body Mass Index) 27.62 kg/m2 [facility] [place] 11-17-2018 05:54-0400 Body weight 66.3 kg Mary Vega [facility] [place] 11-15-2018 15:58-0400 Height 154.9 cm Mary Vega [facility] [place] 11-05-2018 07:30-0400 BP Diastolic 57 mm[Hg] [facility] [place] 11-05-2018 07:30-0400 BP Systolic 135 mm[Hg] [facility] [place] 11-05-2018 07:30-0400 Pulse (Heart Rate) 70 /min [facility] [place] 11-05-2018 07:30-0400 Pulse Oximetry 97 % [facility] [place] 11-04-2018 20:06-0400 Body Temperature 98.4 [degF] [facility], [place] 11-04-2018 20:06-0400 Respiratory Rate 16 /min [facility], [place] 11-04-2018 14:56-0400 BMI (Body Mass Index) 27.4 kg/m2 [facility], [place] 11-04-2018 14:56-0400 Body weight 65.77 kg [facility] , [place] 11-04-2018 14:56-0400 Height 154.9 cm [facility] [place] Encounters Encounter Date Encounter Type Care Provider Facility Start: 06-29-2023 ambulatory MIKAYLA Mora ty:ERIN Hoang Start: 01-11-2023 End: 01-11-2023 ambulatory [facility] Start: 12-22-2022 End: 12-23-2022 ambulatory MIKAYLA WEISS Facility:[facility] Hoang Start: 12-22-2022 End: 12-22-2022 Patient encounter procedure MIKAYLA WEISS [facility] Natalya Start: 10-14-2022 End: 10-14-2022 ambulatory [facility] Start: 09-06-2022 End: 09-07-2022 ambulatory Raymond HARRISON Facility:ERIN Hoang Start: 08-11-2022 End: 08-12-2022 ambulatory Raymond HARRISON Facility:CD:[id number] Start: 08-10-2022 End: 08-11-2022 ambulatory Raymond HARRISON Facility:[facility] Start: 08-09-2022 End: 08-09-2022 ambulatory Addy Daniels Facility:[facility] Start: 08-09-2022 ambulatory MIKAYLA WEISS Facility :[facility] Start: 08-05-2022 End: 08-06-2022 Emergency department patient visit Camacho Saavedray Facility:[facility] Start: 08-05-2022 End: 08-06-2022 Emergency department patient visit MD Addy Daniels Work Phone: [facility] Work Phone: Start: 06-13-2022 End: 06-14-[address] ADDY DANIELS . Facility:[facility] Start: 05-19-[address] ADDY DANIELS . Facili ty:[facility] Start: 04-18-2022 End: 04-19-[address] VALERIE DARDEN Facility:[facility] Start: 04-04-2022 End: 04-04-2022 ambulatory [facility] Start: 01-30-[address] ADDY DANIELS . Facili ty:[facility] Start: 01-04-2022 End: 01-05-[address] ADDY DANIELS . Facility:[facility] Start: 12-26-2021 End: 12-29-2021 Evaluation and management of inpatient DR ADDY DANIELS . Facility:[facility] Start: 12-02-2021 End: 01-04-2022 Pre-admission assessment Alie Santos [facility] Start: 11-30-2021 End: 12-01-[address] JESUS BRUNO Facility:[facility] Start: 11-09-2021 End: 11-10-[address] CALISTA ACEVES Facility:[facility] Start: 08-06-2021 End: 08-07-[address] VALERIE DARDEN Facility:[facility] Start: 07-28-2021 End: 07-29-[address] CALISTA ACEVES Facility:[facility] Start: 06-22-2021 End: 06-22-2021 Patient encounter procedure VALERIE DARDEN [facility] Start: 11-15-2018 End: 11-20-2018 Evaluation and management of inpatient [facility] G[facility] Start: 11-15-2018 End: 11-20-2018 Evaluation and management of inpatient Mary Vega Work Phone: [facility] Comment on above: Spinal stenosis of l umbosacral region (Primary Dx); Impaired mobility; Vasovagal syncope Start: 11-13-2018 End: 11-15-2018 Evaluation and management of inpatient LENNY CORRAL [facility] Start: 11-13-2018 End: 11-15-2018 Patient encounter procedure LENNY Kang [facility] Start: 11-04-2018 End: 11-05-2018 Patient encounter procedure CALISTA KETAN [facility] Start: 11-04-2018 End: 11-05-2018 Emergency department patient visit Lenny Corral Work Phone: [facility] Comment on above: Lumbar radiculopathy (Primary Dx); Intractable low back pain Start: 04-19-2018 End: 04-20-2018 Patient encounter procedure DEFAULT PHYSICIAN Facility:[facility] Procedures Date Procedure Procedure Detail Performing [...] 11-20-2018 INITIATE OXYGEN THER APY PROTOCOL CALISTA KETAN Start: 11-20-2018 INCENTIVE SPIROMETRY RT CALISTA ACEVES Start: 11-20-2018 INCENTIVE SPIROMETRY RT CALISTA ACEVES Start: 11-19-2018 DISCHARGE PATIENT MARQUEZ ACEVES Start: 11-19-2018 INCENTIVE SPIROMETRY RT CALISTA ACEVES Start: 11-19-2018 INCENTIVE SPIROMETRY RT CALISTA ACEVES Start: 11-19-2018 INCENTIVE SPIROMETRY RT CALISTA KETAN Start: 11-19-2018 INCENTIVE SPIROMETRY RT CALISTA ACEVES Start: 11-19-2018 INCENTIVE SPIROMETRY RT CALISTA KETAN Start: 11-19-2018 INCENTIVE SPIROMETRY RT CALISTA ACEVES Start: 11-19-2018 INCENTIVE SPIROMETRY RT CALISTA ACEVES Start: 11-19-2018 INITIATE OXYGEN THER APY PROTOCOL CALISTA KETAN Start: 11-19-2018 INCENTIVE SPIROMETRY RT CALISTA ACEVES Start: 11-19-2018 Blood count complete auto&auto difrntl wbc CALISTA KETAN Start: 11-19-2018 C-reactive protein h igh sensitivity CALISTA KETAN Start: 11-19-2018 Sedimentation rate r bc automated CALISTA ACEVES Start: 11-19-2018 Blood count complete auto&auto difrntl wbc Lenny Jorge Luis Corral Work Phone: Start: 11-19-2018 C-reactive protein h igh sensitivity Mary Vega Work Phone: Start: 11-19-2018 Sedimentation rate r bc automated Mary Vega Work Phone: Start: 11-19-2018 INCENTIVE SPIROMETRY RT CALISTA KETAN Start: 11-18-2018 INCENTIVE SPIROMETRY RT CALISTA KETAN Start: 11-18-2018 INCENTIVE SPIROMETRY RT CALISTA KETAN Start: 11-18-2018 CHANGE DRESSING CALISTA KETAN Start: 11-18-2018 NURSING COMMUNICATION M DORA KETAN Start: 11-18-2018 INCENTIVE SPIROMETRY RT CALISTA KETAN Start: 11-18-2018 Ecg routine ecg w/le ast 12 lds w/i&r CALISTA KETAN Start: 11-18-2018 INCENTIVE SPIROMETRY RT CALISTA ACEVES Start: 11-18-2018 Ecg routine ecg w/le ast 12 lds w/i&r Steve I Cho Work Phone: Start: 11-18-2018 Assay of magnesium CHRIS ACEVES Start: 11-18-2018 Assay of thyroid sti mulating hormone tsh CALISTA ACEVES Start: 11-18-2018 Basic metabolic pane l calcium total CALISTA ACEVES Start: 11-18-2018 INCENTIVE SPIROMETRY RT CALISTA ACEVES Start: 11-18-2018 Assay of magnesium Evie ld I Cho Work Phone: Start: 11-18-2018 Assay of thyroid sti mulating hormone tsh Steve I Cho Work Phone: [...] CALISTA ACEVES Start: 11-17-2018 INCENTIVE SPIROMETRY RT CALISAT ACEVES Start: 11-17-2018 INCENTIVE SPIROMETRY RT CALISTA ACEVES Start: 11-17-2018 INITIATE OXYGEN THER APY PROTOCOL CALISTA ACEVES Start: 11-17-2018 INCENTIVE SPIROMETRY RT CALISTA ACEVES Start: 11-17-2018 Blood count complete auto&auto difrntl wbc CALISTA ACEVES Start: 11-17-2018 C-reactive protein h igh sensitivity CALISTA ACEVES Start: 11-17-2018 Sedimentation rate r bc [...] ACEVES Start: 11-16-2018 INCENTIVE SPIROMETRY RT CALISTA ACVEES Start: 11-16-2018 INCENTIVE SPIROMETRY RT CALISTA ACEVES Start: 11-16-2018 Echo tthrc r-t 2d w/ wom-mode compl spec&colr d CALISTA ACEVES Start: 11-16-2018 INCENTIVE SPIROMETRY RT CAILSTA ACEVES Start: 11-16-2018 IP CONSULT TO INFECT IOUS DISEASES CALISTA ACEVES Start: 11-16-2018 Echo tthrc r-t 2d w/ wom-mode compl spec&colr d Dulce J Holiday Work Phone: Start: 11-16-2018 INCENTIVE SPIROMETRY [...] difrntl wbc Mary Vega Work Phone: Start: 11-16-2018 DAILY WEIGHTS CALISTA LAMBERT CAREY Start: 11-16-2018 INCENTIVE SPIROMETRY RT CALISTA ACEVES [...] ICAL VTE PROPHYLAXIS CALISTA ACEVES Start: 11-15-2018 LOG HOOKER EVAL AND TREAT CHRIS PRESLEY KETAN Start: 11-15-2018 TOBACCO CESSATION EDUCATION CALISTA ACEVES Start: 11-15-2018 VITAL SIGNS CALISTA STAFFORD LENY Start: 11-15-2018 Radiologic exam ches t single view CALISTA ACEVES Start: 11-15-2018 INCENTIVE SPIROMETRY RT CALISTA KETAN Start: 11-15-2018 Radiologic exam ches t single view Mary Vega Work Phone: Start: 11-15-2018 Duplex scan extracra nial art compl bi study CALISTA ACEVES Start: 11-15-2018 Culture bacterial quanttative colony count urine CALISTA ACEVES Start: 11-15-2018 Urinalysis microscopic only CALISTA ACEVES Start: 11-15-2018 Urnls dip stick/tabl et rgnt auto w/o microscopy CALISTA ACEVES Start: 11-15-2018 INCENTIVE SPIROMETRY RT CALISTA ACEVES Start: 11-15-2018 Duplex scan extracra nial art compl bi study [employer] Work Phone: Start: 11-15-2018 Culture bacterial quanttative colony count urine Mary Gary Work Phone: Start: 11-15-2018 Urinalysis microscopic only Mary Gary Work Phone: Start: 11-15-2018 Blood count complete auto&auto difrntl wbc CALISTA ACEVES Start: 11-15-2018 Culture bacterial bl ood aerobic w/id isolates CALISTA ACEVES Start: 11-15-2018 Microscopic examinat ion of blood, culture CALISTA ACEVES Comment on above: Performed By: #### P TT #### [facility] [address] [place] [address] Start: 11-15-2018 Urnls dip stick/tabl et rgnt auto w/o microscopy Mary Vega Work Phone: Start: 11-15-2018 IP CONSULT TO HOSPITALIST CALISTA ACEVES Start: 11-15-2018 PATIENT STATUS (DIRECT) CALISTA ACEVES Start: 11-15-2018 AMBULATE PATIENT CALISTA ACEVES Start: 11-15-2018 DIET GENERAL CALISTA STAFFORD UN Start: 11-15-2018 PLACE INTERMITTENT P NEUMATIC COMPRESSION DEVICE CALISTA ACEVES Start: 11-15-2018 WOUND CARE CALISTA RIVERA UN Start: 11-15-2018 ACTIVITY TOLERATED M DORA ACEVES Start: 11-15-2018 INCENTIVE SPIROMETRY RT CALISTA [...] RT CALISTA ACEVES Start: 11-15-2018 INITIATE OXYGEN THER APY PROTOCOL CALISTA ACEVES Start: 11-15-2018 PULSE OXIMETRY, [...] CONTINUOUS CALISTA ACEVES Start: 11-14-2018 Radex spine lumbosac ral 2/3 views CALISTA ACEVES Start: 11-14-2018 INCENTIVE SPIROMETRY RT CALISTA ACEVES Start: 11-14-2018 Gluc bld gluc mntr d ev cleared fda spec home use CALISTA KETAN Start: 11-14-2018 INCENTIVE SPIROMETRY RT CALISTA KETAN Start: 11-14-2018 INITIATE OXYGEN THER APY PROTOCOL CALISTA ACEVES Start: 11-14-2018 PULSE OXIMETRY, CONTINUOUS CALISTA ACEVES Start: 11-14-2018 IP CONSULT TO REHAB/ TCU ADMISSION COORDINATOR CALISTA ACEVES Start: 11-14-2018 INCENTIVE SPIROMETRY RT CALISTA ACEVES Start: 11-14-2018 Blood count complete auto&auto difrntl wbc CALISTA ACEVES Start: 11-14-2018 Comprehensive metabo lic panel CALISTA ACEVES Start: 11-14-2018 PULSE OXIMETRY, CONTINUOUS CALISTA ACEVES Start: 11-14-2018 ACTIVITY TOLERATED Blanca DORA ACEVES Start: 11-14-2018 AMBULATE PATIENT CALISTA ACEVES Start: 11-14-2018 DAILY WEIGHTS CALISTA PETRA PATION Start: 11-14-2018 OT EVAL AND TREAT MARQUEZ [...] CALISTA ACEVES Start: 11-13-2018 ELEVATE HOB CALISTA RIVERA UN Start: 11-13-2018 INCENTIVE SPIROMETRY RT CALISTA ACEVES Start: 11-13-2018 INITIATE OXYGEN THER APY PROTOCOL CALISTA ACEVES Start: 11-13-2018 INTAKE AND OUTPUT MARQUEZ ACEVES Start: 11-13-2018 NEURO/VASCULAR CHECKS Blanca ACEVES Start: 11-13-2018 NOTIFY PHYSICIAN (SPECIFY) CALISTA ACEVES Start: 11-13-2018 TELEMETRY MONITORING MA ALEX ACEVES Start: 11-13-2018 TOBACCO CESSATION EDUCATION CALISTA ACEVES Start: 11-13-2018 VITAL SIGNS CALISTA BRA UN Start: 11-13-2018 WOUND CARE CALISTA STAFFORD UN Start: 11-13-2018 FULL CODE CALISTA BRA UN Start: 11-13-2018 Blood count complete automated CALISTA ACEVES Start: 11-13-2018 Comprehensive metabo lic panel CALISTA ACEVES Start: 11-13-2018 PATIENT STATUS (FROM ED OR OR/PROCEDURAL) CALISTA ACEVES Start: 11-13-2018 TRANSFER PATIENT CALISTA KETAN Start: 11-13-2018 FLUORO FOR SURGICAL PROCEDURES CALISTA [...] CALISTA ACEVES Start: 11-05-2018 DISCHARGE PATIENT MARQUEZ Gissell ACEVES Start: 11-05-2018 ASSESS HEART TONES CALISTA ACEVES Start: 11-05-2018 DIET FULL LIQUID CALISTA ACEVES Start: 11-05-2018 FULL CODE CALISTA RIVERA UN Start: 11-05-2018 INTAKE AND OUTPUT MARQUEZ Gissell ACEVES Start: 11-05-2018 NOTIFY PHYSICIAN (SPECIFY) CALISTA ACEVES Start: 11-05-2018 PLACE INTERMITTENT P NEUMATIC COMPRESSION DEVICE CALISTA ACEVES Start: 11-05-2018 VITAL SIGNS CALISTA RIVERA UN Start: 11-05-2018 Mri spinal canal lum bar w/o & w/contr matrl CALISTA ACEVES Start: 11-05-2018 Radex spine lumbosac ral minimum 4 views CALISTA ACEVES Start: 11-05-2018 Radiologic exam ches t 2 views CALISTA ACEVES Start: 11-05-2018 Mri spinal canal lum bar w/o & w/contr matrl Lenny H. Ellis Work Phone: Start: 11-05-2018 Radex spine lumbosac ral minimum 4 views Lenny H. Ellis Work Phone: Start: 11-05-2018 Radiologic exam ches t 2 views Lenny H. Ellis Work Phone: Start: 11-05-2018 Ecg routine ecg w/le ast 12 lds w/i&r CALISTA ACEVES Start: 11-04-2018 NOTIFY PHYSICIAN (SPECIFY) CALISTA ACEVES Start: 11-04-2018 REASON FOR NO MECHAN ICAL VTE PROPHYLAXIS CALISTAPRESLEY ACEVES Start: 11-04-2018 VITAL SIGNS CALISTA RIVERA MICHELE Start: 11-04-2018 Sedimentation rate r bc automated CALISTA ACEVES Start: 11-04-2018 PATIENT STATUS (FROM ED OR OR/PROCEDURAL) CALISTAPRESLEY ACEVES Start: 11-04-2018 Blood count complete auto&auto difrntl wbc CALISTA ACEVES Start: 11-04-2018 C-reactive protein CHRIS ACEVES Start: 11-04-2018 Comprehensive metabo lic panel CALISTA ACEVES Start: 11-04-2018 Prothrombin time CALISTA ACEVES Start: 11-04-2018 Thromboplastin time partial plasma/whole blood CALISTA ACEVES Start: 11-04-2018 Urnls dip stick/tabl et rgnt auto w/o microscopy CALISTA ACEVES Start: 11-04-2018 Sedimentation rate r bc automated Ab Drummond Work Phone: Start: 11-04-2018 Blood count complete auto&auto difrntl wbc Ab Drummond Work Phone: Start: 11-04-2018 C-reactive protein Steven aylin Bhanu Work Phone: Start: 11-04-2018 Comprehensive metabo lic panel Ab Drummond Work Phone: Start: 11-04-2018 Prothrombin time Ab Drummond Work Phone: Start: 11-04-2018 Thromboplastin time partial plasma/whole blood Ab Drummond Work Phone: Appendectomy MIKAYLAJAQUELINE WEISS Bilateral salpingect mackenzie with oophorectomy MIKAYLA WEISS Cataract extraction and insertion of intraocular lens MIKAYLAJAQUELINE WEISS Cholecystectomy MIKAYLA MARTINEZ Colonoscopy MIKAYLAJAQUELINE WEISS Procedure on back MIKAYLA DUMAS Tonsillectomy MIKAYLA ABDULLAHI Plan of Treatment Date Care Activity Detail Author Start: 08-05-2022 CT Abdomen and Pelvi s WO contrast [facility] Start: 08-05-2022 CT of abdomen and pe lvis without contrast CT abdomen pelvis wo con [facility] Start: 11-19-2019 Creatinine monitoring Creatinine mon [place], [place] Start: 11-19-2019 Potassium monitoring Potassium monit [place], [place] Start: 11-05-2019 Creatinine monitoring Creatinine mon [place], [place] Start: 11-05-2019 Potassium monitoring Potassium monit [place], [place] Start: 12-04-2018 End: 12-04-2018 Office Visit 12/04/2018 Office Visit Neurosurgery Lenny Corral MD [address] [facility], [address] [address] [employer] Start: 11-30-2018 End: 11-30-2018 Office Visit 11/30/2018 Office Visit Neurosurgery Lenny Corral MD [address] [facility], [address] [address] [employer] Start: 11-23-2018 End: 11-23-2018 Office Visit 11/23/2018 Office Visit Neurosurgery Lenny Corral MD [address] [facility], [address] [address] [employer] Start: 11-13-2018 Annual Wellness Visi t (AWV) Annual Wellness Visit (AWV) [place], [place] Start: 10-21-2018 Influenza vaccination Flu vaccine (# 1) [place], [place] Start: 2001 DEXA (modify frequen cy per FRAX score) DEXA (modify frequency per FRAX score) [place], [place] Start: 2001 Pneumococcal 65+ yea rs Vaccine (1 of 2 - PCV13) Pneumococcal 65+ years Vaccine (1 of 2 - PCV13) [place], [place] Start: 1986 Shingles Vaccine (1 of 2) Shingles Vaccine (1 of 2) [place] Start: 11-13-1955 DTaP/Tdap/Td vaccine (1 - Tdap) DTaP/Tdap/Td vaccine (1 - Tdap) [place], [place] Start: 1946 Lipid screen Lipid screen [place], [place] Culture Blood #1 Culture Blood # 1 Microbiology STAT 11/15/2018 4:37 PM EDT [place], [place] Culture Blood #2 Culture Blood # 2 Microbiology STAT 11/15/2018 4:37 PM EDT [place] End: 11-05-2018 EKG 12 Lead EKG 12 Lead ECG Routine One Time for 1 Occurrences starting 11/05/2018 until 11/05/2018 [place] Comment on above: One Time for 1 Occur rences starting 11/05/2018 until 11/05/2018 Incentive spirometry Incentive s pirometry Respiratory Care Routine Every 2hr while awake until discontinued starting 11/15/2018 [place] Comment on above: Every 2hr while awak e until discontinued starting 11/15/2018 Initiate Oxygen Ther apy Protocol Initiate Oxygen Therapy Protocol Respiratory Care Routine Daily until discontinued starting 11/15/2018 [place] Comment on above: Daily until disconti nued starting 11/15/2018 Nonrebreather mask oxygen Nonrebreather mask oxygen Respiratory Care Routine As directed - RT (PRN) until discontinued starting 11/05/2018 [place] Comment on above: As directed - RT (CT N) until discontinued starting 11/05/2018 Patient Education Kidney Stones (DC) [facility] Work Phone: Patient referral [facility] Work Phone: End: 11-15-2018 Speech and language therapy regime Speech language pathology evaluation LOG HOOKER Routine One Time for 1 Occurrences starting 11/15/2018 until 11/15/2018 [place] Comment on above: One Time for 1 Occur rences starting 11/15/2018 until 11/15/2018 End: 11-04-2018 Urine Reflex to Culture Urine Reflex to Culture Lab STAT One Time for 1 Occurrences starting 11/04/2018 until 11/04/2018 [place] Comment on above: One Time for 1 Occur rences starting 11/04/2018 until 11/04/2018 Immunizations Immunization Date Immunization Notes Care Provider Laxmi romero 12-20-2021 influenza virus vaccine, unspecified formulation MIKAYLA ABDULLAHI [facility] 12-21-2020 influenza virus vaccine, unspecified formulation MIKAYLA ABDULLAHI [facility] 01-09-2019 influenza virus vaccine, unspecified formulation MIKAYLA ABDULLAHI [facility] 11-29-2017 influenza virus vaccine, unspecified formulation MIKAYLA ABDULLAHI [facility] 01-02-2017 influenza virus vaccine, unspecified formulation MIKAYLA ABDULLAHI [facility] 12-06-2016 influenza virus vaccine, unspecified formulation MIKAYLA ABDULLAHI [facility] 12-11-2014 influenza virus vaccine, unspecified formulation MIKAYLA ABDULLAHI [facility] Payers Date Payer Category Payer Self-pay [id number] 2021 Unknown [id number] 2018 Medicare MEDICARE MEDICAR E PART A AND B xxxxxxxxxxx 2018-Present [phone] [place] [address] xxxxxxxxxxx [id number] 2014 Medicare [id number] 2014 Medicare MEDICARE MEDICAR E PART A AND B xxxxxxxxxx 2014-Present [phone] [address] [place] [address] xxxxxxxxxx [id number] 2014 Unknown [id number] 2014 Unknown 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 [address] xxxxxxxxxxxx 2014-Present [phone] [address] [place] [address] xxxxxxxxxxxx [id number] 1959 Medicare [id number] 1959 Self-pay [id number] 1959 Unknown [id number] 1936 Unknown [id number] 2.16.840.1.672072.3.579.2.647 1936 Unknown [id number] 2.16.840.1.975987.3.579.2.182 1936 Unknown [id number] 2.16.840.1.651476.3.579.2.182 1936 Unknown [id number] 2.16.840.1.930472.3.579.2.182 1936 Unknown [id number] 2.16.840.1.742616.3.579.2.182 1936 Unknown [id number] 2.16.840.1.750059.3.579.2.593 1936 Unknown [id number] 2.16.840.1.390719.3.579.2.593 1936 Unknown [id number] 2.16.840.1.479387.3.579.2.593 1936 Unknown [id number] 2.16.840.1.914965.3.579.2.593 1936 Unknown [id number] 2.16.840.1.947625.3.579.2.593 1936 Unknown [id number] 2.16.840.1.257405.3.579.2.593 1936 Unknown [id number] 2.16.840.1.473767.3.579.2.593 1936 Unknown [id number] 2.16.840.1.736368.3.579.2.593 1936 Unknown [id number] 2.16.840.1.584280.3.579.2.593 1936 Unknown [id number] 2.16.840.1.258807.3.579.2.593 1936 Unknown [id number] 2.16.840.1.227954.3.579.2.727 1936 Unknown [id number] 2.16.840.1.303202.3.579.2.727 1936 Unknown [id number] 2.16.840.1.472744.3.579.2.727 1936 Unknown [id number] 2.16.840.1.876972.3.579.2.727 1936 Unknown [id number] 2.16.840.1.831622.3.579.2.727 1936 Unknown [id number] 2.16.840.1.904362.3.579.2.727 Unknown Unknown [id number] 2.16.840.1.607464.3.579.2.531 Unknown [id number] 2.16.840.1.150901.3.579.2.531 Social History Date Type Detail Facility Start: 11-04-2018 End: 12-22-2022 Tobacco smoking status NHIS Never smoker [facility] Natalya Start: 11-04-2018 End: 11-19-2018 Alcohol intake Not Currently [place], [place] Sex Assigned At Not on file [place] Tobacco smoking status No Smokin g Status Entered [facility] Start: 1935 Sex Assigned At Female F [facility] Tobacco smoking status Never [facility] Medical Equipment Procedure Code Equipment Code Equipment Origin al Text Equipment Identifier Dates Graft Canc Chip 30cc [id number] - [id number] Start: 11-13-2018 Graft Canc Chip [id number] 15cc - [id number] Start: 11-13-2018 Sys Fix Reline 0 x Conn 40 50mm 5.5lp Adj [id number] Start: 11-13-2018 Jose Armando-Graft Infuse Kt Med [id number] Start: 11-13-2018 Impl Spine Cage Kamila Crv [id number] 8deg [id number] Start: 11-13-2018 Impl Spine Cage Kamila Crv [id number] 8deg [id number] Start: 11-13-2018 Screw Polyaxial Reline O 2s 6.0x55mm [id number] Start: 11-13-2018 Screw Lk Reline Opn Tulip 5.5mm [id number] Start: 11-13-2018 Impl Spine Harish Reline-O Lrdtc 5.5x70mm [id number] Start: 11-13-2018 Impl Spine Harish Reline-O 5.5x75mm [id number] Start: 11-13-2018 Functional Status Date Assessment Result Facility 12-22-2022 Functional Status N/A [facility] Clinical Notes 04-04-2022 to 01-11-2023 Note Date & Type Note Facility 01-11-2023 Note Noted 7 beat run of NSVT on 1 week holter monitor, along with SVT, PVCs Recommended to continue coreg 25 mg bid, will place 30 day monitor, and obtain treadmill cardiolite stress test for ischemic evaluation. [facility] 01-11-2023 Note Pt reports that she has had 5 syncopal episodes since this Summer- some while having a BM, and other episodes while just up and walking. [facility] 01-11-2023 Note Will monitor with ro utine echocardiogram annually unless pt has concerning symptoms [facility] 01-11-2023 Note Recommended to gorge nue ASA and pravastatin [facility] 01-11-2023 Note Hypertension is stab le Reviewed B/P log and typically in the mornings her b/p with well controlled 120's/70-80, and in the evenings can be up to 140/80 Continue all meds and will add toprol [facility] 01-11-2023 Note Continue pravastatin [facility] 01-11-2023 Note Will monitor with ro utine echocardiogram annually unless pt has concerning symptoms [facility] 01-11-2023 Note Will monitor with ro utine echocardiogram annually unless pt has concerning symptoms [facility] 01-11-2023 Note Patient here for 3 [...] All other systems reviewed and are negative. [facility] 01-11-2023 Note UTP CARDIOLOGY PROGR ESS [...] called and was evaluated in ED at [facility]. Admits she has had a couple syncopal episodes in the bathroom while having a BM- last one was at [employer]. States she also has had a couple while just up and walking- normal Day to Day activity. Daughter states that pt is usually out for about 1 minute. Of note patient was direct admitted to the [facility] end of August for electrolyte imbalances low sodium, low potassium, and acute anemia. She was evaluated at [facility] in October for ABD pain/ syncope, and [...] The patient states she was shopping in [employer] when she felt the need to have [...] a colonoscopy approximately 5 years ago at [facility]. HPI - Altered Mental Status General Chief [...] was someone in the bathroom in the jewish and she have to go back and [...] 3 levothyroxine (Syn (more content not included)... [facility] 12-22-2022 Hospital Discharge instructions Patient Education [...] transplant. Follow these instructions at home: Take [id number] and prescription medicines only as told by [...] provider. Document Revised: 05/26/2020 Document Reviewed: 05/26/2020 [email or web address] Patient Education 2022 [employer]. Follow Up Care 09/06/2022 13:10:43 With:ABDULLAHI NOONAN, MIKAYLA Pereiar, URL Address: [address] [place] [address] [phone] When: Unknown Comments:6 mos w/ renal fxn (per PCP) [facility] Natalya 10-25-2022 Note Pt message/ call [...] needs to call for appointment Lesly Alaniz SOFTWARE INTEGRATOR Division of Cardiology, [facility]- [phone] Pager- [phone] Email- [email or web address] 10-14-2022 Note Stable and non pitting currently [facility] 10-14-2022 Note Currently stable Pt to call for any recurrent syncope or concerns [facility] 10-14-2022 Note Mild on recent echo No concerning symptoms [facility] 10-14-2022 Note Continue ASA and statin [facility] 10-14-2022 Note Hypertension is unco ntrolled 160/75- admits this is where her b/p is at home Increase coreg to 25 mg bid, continue losartan 100 mg, hydrochlorothiazide 25 mg, and amlodipine 10 mg [facility] 10-14-2022 Note Continue pravastatin [facility] 10-14-2022 Note No concerning sympto ms Will continue to monitor with echocardiogram [facility] 10-14-2022 Note No concerning sympto ms Will continue to monitor with echocardiogram [facility] 10-14-2022 Note Patient here c/o LE edema. Says today they aren't as bad, but she states they're hard and sometimes painful. She has not had lab work since [facility] stay in July 2022. She denies chest pain, lightheadedness, and palpitations. Review of Systems Cardiovascular: Positive for dyspnea on exertion and leg swelling. Hematologic/Lymphatic: Bruises/bleeds easily. All other systems reviewed and are negative. [facility] 10-14-2022 Note UTP CARDIOLOGY PROGR ESS [...] note patient was direct admitted to the [facility] end of August for electrolyte imbalances low [...] and non pitting currently RTC 3-6 months [facility] 04-04-2022 Note [facility] Cardiology Clinic Note Chief Complaint: Patient here [...] p.o. twice dominic (more content not included)... [facility] Evaluation + Plan note No data available for this section [facility] Evaluation + Plan note Future Appointments Appointment Date:06/29/2023 09:30:00 AM Scheduled Provider:MIKAYLA WEISS PA-C Location:[facility] Appointment Type:URO Office Visit [facility] Evaluation note No assessment inform ation available [facility] Work Phone: Hospital Discharge instructions No data available for this section [facility] Hospital Discharge instructions Additional Instructions Take [...] fevers or chills or intractable nausea vomiting. [facility] Work Phone: Progress note No data available for this section [facility] Summary Purpose Family History No Family History Records FoundNo Family History Records FoundNo Family History Records FoundNo Family History Records Found No data available for this section No Family History Records FoundNo Family History Records Found Advance Directives No Advanced Directives Records FoundDocuments on File Type Date Recorded Patient Radiology Manager Expl anation Advance Directives and Living Will Power of Stainless Steel Finisher Latest Code Status on File Code Status Date Activated Date Inactivated Comments Full Code 11/05/2018 6:34 PM Full Code 11/04/2018 5:08 PM 11/05/2018 6:34 PM Documents on File Type Date Recorded Patient Radiology Manager Expl anation Advance Directives and Livin g Will Advance Directives and Livin g Will 11/06/2018 1:08 AM AD info sheets Power of Stainless Steel Finisher Latest Code Status on File Code Status [...] sent through Care Everywhere. * Back Pain (Austrian) documented in this encounter* Discharge Instr - [...] at most local grocery stores, pharmacies, and chain [employer]-stores. ? If you have any questions about [...] Contact Information Primary Emergency Contact: Andrea Madrid [facility] Mobile Relation: Spouse Secondary Emergency Contact: Liliya Townsend Mobile Relation: Child Manager Managed Care needed? No Past Surgical History: Past Surgical History: Procedure Laterality Date APPENDECTOMY BACK SURGERY CHOLECYSTECTOMY LUMBAR FUSION N/A 11/13/2018 PLIF L 3-4-5 DECOMPRESSION L3, L4 performed by Lenny Corral MD at [facility] Right Immunization History: There is no immunization [...] Assisted Dressing Independent Toileting Independent Feeding Independent Restrictive Preparation Operator Independent Med Delivery whole Wound Care Documentation [...] Video (Video Swallowing Test): {Done Not Done Date:[id number]} Treatments at the Time of Hospital Discharge: Respiratory Treatments: Oxygen Therapy: is not on home oxygen therapy. Ventilator: - No ventilator support Rehab Therapies: Physical Therapy and Occupational Therapy Weight Bearing Status/Restrictions: No weight bearing restirctions Other Medical Equipment (for information only, NOT a DME order): walker Other Treatments: Patient's personal belongings (please select all that are sent with patient): {[facility] Belongings:[id number]} RN SIGNATURE: MANAGEMENT/SOCIAL WORK SECTION Inpatient Status Date: Patient was admitted to Inpatient Acute Rehab 11/15/18 Readmission Risk Assessment Score: Readmission Risk Risk of Unplanned Readmission: 12 Discharging to Facility/ Agency Name: Karan Sosa Address: Fax: Dialysis Facility (if applicable) Name: Address: Dialysis Schedule: Phone: Fax: Passenger Interline Clerk/Purchasing Internship signature: ICIAN SECTION Prognosis: Good Condition at [...] Date: 11/20/2018 Patient Name: Hiram Madrid Account: [id number] : 1935 (83 y.o.) Room: [place] [address] Diagnosis: Impaired mobility and gait secondary to [...] L4 performed by Lenny Corral MD at [facility] OR [facility] Right Precautions: Restrictions/Precautions: Fall [...] to increasing pain) Transfer Assistance: Independent Active Swiss Type Screw Machine Operator: Yes Mode of Transportation: Car 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 Leisure & Hobbies: Cooking, reading, needlepoint Additional Comments: 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, has been relying more on dtr and spouse due toworsening weakness past few weeks Current Functional Status: ADL Equipment Provided: Sock aid, Catalyst Plant Supervisor Feeding: Modified independent Grooming: Independent UE Bathing: [...] Limits Cognition Status: Cognition Overall Cognitive Status: WFL Cognition Comment: 7 7 6 6 Perception Status: Perception Overall Perceptual Status: WFL Sensation Status: Sensation Overall Sensation Status: WF Vision and Hearing Status: Vision Vision: Impaired Vision Exceptions: Wears glasses for reading Hearing Hearing: Exceptions to [facility] Hearing Exceptions: Hard of hearing/hearing concerns, [...] by: AGUSTIN Langford OTR/L 11/20/2018, 4:46 PM Yarely Gordon 11/20/2018 12:35 PM EDT [facility] MUSIC THERAPY Date: 11/20/2018 Patient Name: Hiram Madrid Date of : 1935 (83 y.o.) Gender: female Diagnosis: Impaired mobility and gait secondary to NTSCI secondary to lumbar stenosis, radiculopathy, and spondylosis Referring Practitioner: Dr. Coker RESTRICTIONS/PRECAUTIONS: Restrictions/Precautions: Fall Risk Vision: Impaired Hearing: Exceptions to [facility] Hearing Exceptions: Hard of hearing/hearing concerns, [...] interested in having music therapy again. [] [facility] will attempt to see pt again another day, if time allows. [x] Pt's planned d/c date is before [facility] is scheduled on unit again. [] Pt NOT interested in having music therapy again. Yarely Zarate MTL.[facility] 11/20/2018 * Roselyn Schroeder OTA - 11/20/2018 9:59 AM EDT Occupational Therapy Facility/Department: [facility] Daily Treatment Note NAME: Hiram Madrid [...] 11/20/2018 9:55 AM EDT Occupational Therapy Facility/Department: [facility] Daily Treatment Note NAME: Hiram Madrid [...] Shower Transfers: Supervision Cognition Overall Cognitive Status: WFL Cognition Comment: 6 7 7 6 6 [...] 0830 Time Out 0920 Minutes 50 CARLA Martinez * Mary Vega MD - 11/19/2018 8:05 [...] device (slide rail) Walk: 6 - Modified Dare Walks at least 150 feet with an ambulatory device, orthosis or prosthesis OR requires extra amount of time OR there is concern for safety Distance Walked: 200' Wheel Chair: 0 - Activity Not Assessed/Does Not Occur Stairs: 6 - Modified Dare Safely goes up and down at least [...] from Dr. Ellis Holguin D.O., PM&R Attending [phone] [facility] [place] * Khanh White LPN - 11/19/2018 6:00 [...] syncope PLAN: Fever leukocytosis observe * Michelle Sharp, CHRISTIANO/Lloyd - 11/19/2018 2:05 PM EDT Occupational Therapy Facility/Department: [facility] Daily Treatment Note NAME: Hiram Madrid [...] Time Out 1400 Minutes 30 Michelle Sharp OTR/Lloyd * Mikayla Lindsey PTA - 11/19/2018 1:09 PM EDT Physical Therapy Rehab Treatment Note Facility/Department: [facility] Room: [place] [address] NAME: Hiram Madrid : 1935 (83 y.o.) [...] EDT Progress Note Patient: Hiram Madrid Unit/Bed: [place] [address] Date of : 1935 Acct: [id number] Admitting Diagnosis: Impaired mobility [Z74.09] Spinal stenosis [...] and tentative discharge home tomorrow. Follows with director medical surgical in [place]. 11/18/18: called by billing and accounting staff assistant regarding tachycardia. Pt was unaware of tachycardia. [...] to have + orthostatics. Denies hx of CA, CHF or arrhythmia. Follows with a director medical surgical from [place] for carotid artery disease and cardiac murmur. [...] to DC home and F/U with regular director medical surgical as outpatient Attending Supervising Physician's Attestation Statement The patient is a 83 y.o. female. I have performed a history and physical examination of the patient. I discussed the case with the physician email marketing assistant. I reviewed the patient's Past Medical History, [...] EDT Physical Therapy Rehab Treatment Note Facility/Department: [facility] Room: [place] [address]- NAME: Hiram Madrid : 1935 (83 y.o.) [...] trainin Gait trainin Neuro re education:10 Therapeutic ex:15 Padmini De La Rosa PTA, 11/19/18 at 10:57 AM * Mikayla Lindsey PTA - 11/19/2018 10:06 AM EDT Physical Therapy Rehab Treatment Note Facility/Department: [facility]: Hiram Madrid : 1935 (83 y.o.) [...] Neuromuscular Education Neuromuscular Comments: Pizano Initiated: other ASSOCIATE ARTISTIC DIRECTOR finished it: pt scored a 42/56. [...] re education: 10 Therapeutic ex: 0 Mikayla Lindsey, ASSOCIATE ARTISTIC DIRECTOR, 11/19/18 at 11:59 AM * Khanh White LPN - 11/19/2018 9:15 AM EDT Assessment completed. Medicated with Percocet for 10/ pain in lower back and left leg. [...] Unit/Bed: R238/R238-01 Date of : 1935 Acct: [id number] Admitting Diagnosis: Impaired mobility [Z74.09] Spinal stenosis of lumbosacral region [M48.07] Admit Date: 11/15/2018 Hospital Day: 4 Current Medications: Scheduled Meds: cephALEXin 500 mg Oral 3 times per day hnliumke-lqvdbmmfzk-bbiqpuank Topical BID enoxaparin 30 mg Subcutaneous Daily [...] woman from homewith spouse who presents to [facility] with the above deficits which impact [...] ms QTc Calculation (Bazett) 463 ms P [place] 58 degrees R [place] -11 degrees T [place] 5 degrees Xr Chest Standard (2 Vw) [...] from Dr. Ellis Holguin D.O., PM&R Attending [address] [place] [address] * Rachael Graf LPN - 11/18/2018 4:39 PM EDT Pt states her pain level in her back at this time is tolerable at a 5/10. She was previously medicated. Back dressing changed. Cleaned with NS, neosporin, DSD applied. Moderate amt sanguinous drainage. Inferior part of incision remains reddened. Dr added sutures to inferior part of back [...] and no guarding. Musculoskeletal: Back: Urine Culture [[id number]] Collected: 11/15/18 190 Order Status: Completed Specimen: Urine, clean catch Updated: 11/17/18 0728 Urine Culture, Routine No growth 24 hours Narrative: ORDERED BY: ADDY COKER SOURCE: Urine Clean Catch COLLECTED: 11/15/18 19:05 ANTIBIOTICS AT DI.: RECEIVED : 11/15/18 19:05 Culture Blood #2 [[id number]] Collected: 11/15/18 1637 Order Status: Completed Specimen: Blood Updated: 11/16/18 1815 Culture, Blood 2 No Growth to date. Any change in status will be called. Narrative: ORDERED BY: ADDY COKER SOURCE: Blood COLLECTED: 11/15/18 16:37 ANTIBIOTICS AT DI.: RECEIVED : 11/15/18 16:42 Culture Blood #1 [[id number]] Collected: 11/15/18 1637 Order Status: Completed Specimen: [...] Unit/Bed: R238/R238-01 Date of : 1935 Acct: [id number] Admitting Diagnosis: Impaired mobility [Z74.09] Spinal stenosis [...] L4 performed by Lenny Corral MD at [facility] Right History reviewed. No pertinent family history. [...] on phone: None Gets together: None Attends congregational service: None Active member of club or organization: None Attends meetings of clubs or organizations: None Relationship status: None Intimate partner violence: Fear of current or ex partner: None Emotionally abused: None Physically abused: None Forced sexual activity: None Other Topics Concern None Social History Narrative None Subjective/HPI: called by billing and accounting staff assistant regarding tachycardia. Pt was unaware of tachycardia. [...] K 3.8 11/15/2018 CL 98 11/15/2018 CO2 11/15/2018 BUN 6 11/15/2018 CREATININE 0.59 11/15/2018 [...] woman from homewith spouse who presents to [facility] with the above deficits which impact [...] up labs. Blanca Holguin D.O., PM&R Attending [phone] [place] [address] [place] * Dana Craig, JANET - 11/17/2018 5:45 PM EDT Monitor room called, said pt had about 18 sec run of svt up to 218; notified cardio. * Faye Summers PTA - 11/17/2018 4:07 PM EDT Physical Therapy Rehab Treatment Note Facility/Department: [facility] NAME: Hiram Madrid : 1935 (83 y.o.) [...] complete previously scheduled minutes from AM. Faye Summers PTA, 11/17/18 at 4:07 PM * Rachael Graf [...] 11/17/2018 2:51 PM EDT Occupational Therapy Facility/Department: [facility] Daily Treatment Note NAME: Hiram Madrid [...] EDT Physical Therapy Rehab Treatment Note Facility/Department: [facility] Room: R238/R238-01 NAME: Hiram Madrid : [...] Angi Ibanez, 11/17/18 at 2:15 PM * Angi Ibanez - 11/17/2018 12:19 PM EDT Physical Therapy Rehab Treatment Note Facility/Department: [facility]: Hiram Madrid : 1935 (83 y.o.) [...] meds this am Post Treatment Pain Screenin05/30 ns notified. OBJECTIVE: Transfers Sit to Stand: Stand [...] trainin Neuro re education:15 Therapeutic ex:20 Angi Ibanez 11/17/18 at 12:20 PM * Roselyn Schroeder OTA - 11/17/2018 8:43 AM EDT Occupational Therapy Facility/Department: [facility] Daily Treatment Note NAME: Hiram Madrid [...] at below status. ADL Equipment Provided: Sock aid;Catalyst Plant Supervisor Grooming: Independent UE Bathing: Setup LE Bathing: [...] woman from homewith spouse who presents to [facility] with the above deficits which impact [...] consult,check dopplers Blanca Holguin D.O., PM&R Attending [phone] [facility] [place] * Jessica Irvin, OTR/L - 11/16/2018 4:14 PM EDT Occupational Therapy Facility/Department: [facility] Daily Treatment Note NAME: Hiram Madrid : 1935 Date of Service: 11/16/2018 Discharge Recommendations: Continue to assess pending progress OT Equipment Recommendations Other: Continue to assess Assessment Performance deficits / Impairments: Decreased functional mobility ;Decreased ADL status;Decreased strength;Decreased balance;Decreased endurance;Decreased high- level IADLs Assessment: Pt. is an 83 year old woman from home with spouse who presents to [facility] with the above deficits which impact [...] Pain: Yes Objective The patient completed the [facility] Mental Status (UMS) Examination on this date, [...] Unit/Bed: R238/R238-01 Date of : 1935 Acct: [id number] Admitting Diagnosis: Impaired mobility [Z74.09] Spinal stenosis of lumbosacral region [M48.07] Admit Date: 11/15/2018 Hospital Day: 1 Current Medications: Scheduled Meds: [START ON 11/17/2018] enoxaparin 40 mg Subcutaneous Daily rfnmspgm-fuxdstnvqy-evrzotrhj Topical BID docusate sodium 100 mg Oral [...] to have + orthostatics. Denies hx of CA, CHF or arrhythmia. Follows with a director medical surgical from [place] for carotid artery disease and cardiac murmur. [...] L4 performed by Lenny Corral MD at [facility] Right Social History Social [...] on phone: None Gets together: None Attends congregational service: None Active member of club or [...] capsule 100 mg 100 mg Oral BID Shylapresley Vizcaino APRN - MK famotidine (PEPCID) tablet 20 mg 20 mg Oral BID EDY Tom CNP [START ON 11/16/2018] amLODIPine (NORVASC) tablet 10 mg 10 mg Oral Daily Shyla Renato Vizcaino APRN - MK [START ON 11/16/2018] aspirin EC tablet 81 mg 81 mg Oral Daily Shyla EDY Orellana CNP cephALEXin (KEFLEX) capsule 500 mg 500 mg Oral 3 times per day ShylaEDY Ahumada CNP gabapentin (NEURONTIN) capsule 100 mg 100 mg Oral TID ShylaEDY Ahumada CNP [START ON 11/16/2018] levothyroxine (SYNTHROID) tablet 88 mcg 88 mcg Oral Daily MAINE Tom CNP [START ON 11/16/2018] losartan (COZAAR) tablet 100 mg 100 mg Oral Daily Shyla Vizcaino, METAL ROOFING MECHANIC - E COMMERCE MARKETING ANALYST oxyCODONE-acetaminophen (PERCOCET) 5-325 MG per tablet 1 tablet 1 tablet Oral Q4H PRN Shylapresley Vizcaino, METAL ROOFING MECHANIC - E COMMERCE MARKETING ANALYST potassium chloride (KLOR-CON) packet 20 mEq 20 mEq Oral BID Shyla Renato Vizcaino, METAL ROOFING MECHANIC - E COMMERCE MARKETING ANALYST pravastatin (PRAVACHOL) tablet 80 mg 80 mg Oral Daily Shyla Renato Vizciano, METAL ROOFING MECHANIC - E COMMERCE MARKETING ANALYST polyethylene glycol (GLYCOLAX) packet 17 g 17 [...] EDT Physical Therapy Rehab Treatment Note Facility/Department: [facility] Room: [facility] NAME: Hiram Madrid : 1935 (83 y.o.) [...] re education: 0 Therapeutic ex: 23 Mikayla Lindsey ASSOCIATE ARTISTIC DIRECTOR, 11/16/18 at 3:57 PM * Rhiannon Blank SLP - 11/16/2018 11:21 AM EDT Speech Language Pathology NAME: Hiram Madrid ROOM: R238/R238-01 : 1935 DATE: 11/16/2018 Speech Therapy attempted [...] cognitive function at this time. * Jessica Irvin OTR/Lloyd - 11/16/2018 10:58 AM EDT Occupational Therapy [...] from home with spouse who presents to [facility] with the above deficits which impact [...] to increasing pain) Transfer Assistance: Independent Active Swiss Type Screw Machine Operator: Yes Mode of Transportation: Car Type of [...] Time Individual Concurrent Group Co-treatment Time In 0828 Time Out 0934 Minutes 66 Comment: Transfer care to supervising OTR/L Jessica Irvin OTR/Lloyd * Jena Vega, ASSOCIATE ARTISTIC DIRECTOR - 11/16/2018 10:35 AM EDT Physical Therapy Rehab Treatment Note Facility/Department: [facility] Room: [place] [address] NAME: Hiram Madrid : 1935 (83 y.o.) [...] 11/16/18 at 11:10 AM * Jessenia Gordon, CASINO FLOOR WALKER - 11/16/2018 9:35 AM EDT [facility] Rehabilitation RECREATIONAL THERAPY Initial Evaluation Date: 11/16/2018 Patient Name: Hiram Madrid Date of : 1935 (83 y.o.) Gender: female Diagnosis: Impaired mobility and gait secondary to NTSCI secondary to lumbar stenosis, radiculopathy, and spondylosis Referring Practitioner: Dr. 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 Past leisure interests: Walking, jewish, had pets Future leisure interests: Emotional Observed/noted: Cooperative and Pleasant Affect: Appropriate Comments: Today s Session included: Increased Socialization, Provided active listening and Benefits of the patient's leisure and recreation pursuits being utilized as stress relievers Recommendations to utilize Recreation Therapy services, its supported services and groups include: [facility], Pet Therapy, Leisure Education, Individual [...] Yes Learner: Patient, family Education provided: [facility] Method of Education: Discussion Evaluation [...] recall (e.g. memory book) Electronically signed by: MARIEL Stover Date: 11/16/2018 * Lakisha Trevino, PT - 11/16/2018 8:20 AM EDT Facility/Department: [facility] Rehabilitation Initial Assessment: Physical [facility]: Hiram Madrid : 1935 Date of [...] L4 performed by Lenny Corral MD at [facility] Right Chart Reviewed: Yes Patient assessed for [...] to increasing pain) Transfer Assistance: Independent Active Swiss Type Screw Machine Operator: Yes Additional Comments: 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, [...] grossly 4-/5 Neuro: Sensation Overall Sensation Status: WF Balance Sitting - Static: Good Sitting - [...] side to side to initiate log roll senior living goals senior living goal 1: pt to be indep with bed mobility long term care administrator goal 2: pt to be indep with bed transfers senior living goal 3: pt to [id number] ft with supervision long term care administrator goal 4: pt to navigate 4 steps with SBA long term care administrator goal 5: 30/56 for Pizano balance testing ELOS: Plan weeks: 2 Therapy Time: Individual Time In 1000 Time Out 1030 Minutes 30 Lakisha Trevino, PT, 11/16/18 at 12:00 PM * Marybel Ackerman, [facility] - 11/15/2018 11:29 PM EDT [facility] Respiratory Therapy Evaluation Current Order: ACCUNEB .63 Q4 [place] Home Regimen: NONE Ordering Physician: NOEMI Re-evaluation Date: EVAL DONE Diagnosis: SEPSIS Patient [...] puffs by inhalation with spacer [] Ipratropium [place] 0.02% unit dose by aerosol Ipratropium [place] MDI 2 puffs by inhalation with spacer [] Duoneb (Ipratropium + Albuterol) unit dose by aerosol Ipratropium MDI + Albuterol MDI 2 puffs byinhalation w/spacer MDI to Aerosol [] Albuterol Sulfate MDI Albuterol Sulfate 0.083% unit dose by aerosol [] Levalbuterol MDI 2 puffs by inhalation Levalbuterol 1.25 mg unit dose by aerosol [] Ipratropium [place] MDI by inhalation Ipratropium [place] 0.02% unit dose by aerosol [] Combivent (Ipratropium + Albuterol) MDI by inhalation Duoneb (Ipratropium + Albuterol) unit doseby aerosol Treatment Assessment [Frequency/Schedule]: Change frequency to: ACCUNEB Q4 PRN per Protocol, P&T, [facility] Points 0 1 2 3 4 Pulmonary [...] of lumbosacral region Impaired mobility Vasovagal syncope [facility] [address] [place] [address] Chief Complaint and Reason for Visit Chief Complaint SYNCOPE Additional Source Comments INFORMATION SOURCE (unrecogn ized section and content) DATE CREATED AUTHOR 04/20/2018 [facility] DATE CREATED AUTHOR AUTHOR'S ORGANIZ ATION 11/24/2018 [facility] DATE CREATED AUTHOR AUTHOR'S ORGANIZ ATION 06/14/2022 [facility] DATE CREATED AUTHOR AUTHOR'S ORGANIZ ATION 08/21/2022 [facility] DATE CREATED AUTHOR AUTHOR'S ORGANIZ ATION 12/23/2022 [facility] DATE CREATED AUTHOR AUTHOR'S ORGANIZ ATION 01/13/2023 [facility] Reason for Visit (unrecogniz ed section and content) Reason Comments Back Pain Left low back pain r adiates down left leg. Pain flared up last monday Status Reason Specialty Diagnoses / Procedures Referre d By Contact Referred To Contact Diagnoses Intractable back pain Lenny Corral MD [address], [address] [place] [address] [facility] Patient Care team informatio n (unrecognized section and content) Team Status: Active Member Role Status Dates Addy Daniels MD Primary Care Provider Active Team Status: Inactive Member Role Status Dates Addy Daniels MD Primary Care Provider Active Camacho [...] BE BASED ON THE PRIMARY CLINICAL RECORDS. [facility] [employer] [facility]. provides no warranty or guarantee of the accuracy or completeness of information in this document.
[2023-02-10] MEDS: 0.9 % SODIUM CHLORIDE 1,000 ML 999 ML IV (09:22)
[2023-02-10] MEDS: ONDANSETRON PF 4 MG/2 ML VIAL IV (09:22)
[2023-02-10] MEDS: HYDROMORPHONE HCL 0.5 MG/0.5 ML SYRINGE IV (09:22)
--- NOTE | 2023-02-10 09:49 | ED.GENADUL1 ---
HPI - General Adult General Chief complaint: Fall Stated complaint: FALL Time Seen by Provider: 02/10/23 08:58 Source: patient Mode of arrival: ambulance Limitations: no limitations History of Present Illness HPI narrative: Patient is a 87-year-old female who is presenting to the Emergency Room after a fall last night around 9:15 PM. Patient was in the bathroom, she slipped and fell. She was not lightheaded, dizzy, no chest pain or shortness of breath, it was a slip, mechanical fall. Patient landed on her left hip. Does not think that she hit her head, but she is on Plavix. Patient laid there for several hours, was eventually able to crawl into the family room and there is carpet. Patient around 2 AM approximately was able to drink some water and sample, and she vomited that up. Patient was able to throw up in the garbage can that would happen to be in the family room. Patient was on the carpet, and there was able to get up on her hips again and then fell. Patient has fallen twice. Patient laid in the carpet in the family room until this morning when she finally called her daughter had called 911 and brought her to the Emergency Room. Patient arrived no cervical collar. Patient is alert and oriented ?3, is complaining of left hip pain only. Patient denies any headache, neck pain, no chest shortness of breath, no other acute complaints. Patient has not injured or broken her left hip previously. . All systems are negative except as noted/marked. All systems reviewed and otherwise negative. . Nurses note and vital signs reviewed and patient is not hypoxic. Patient said that she cannot bear weight to her left hip/pelvis. General: The patient appears Mild distress secondary to left hip pain with any movement,. Patient is resting uncomfortably on cart. Patient is not toxic, lethargic, or listless Skin: Warm, dry, no pallor noted. There is no rash noted. No petechiae, purpura. No abrasions, lacerations, or signs of ecchymosis. Head: Normocephalic, atraumatic Eye: Normal conjunctiva, no drainage, EOMI. PERRL Ears, Nose, Mouth, and Throat: oral mucosa is moist. Nares patent. Mouth without vesicles. Cardiovascular: Regular Rate and Rhythm, no murmur, gallop, rub Respiratory: Patient is in no distress, no accessory muscle use, lungs are clear to auscultation, no wheezing, rales or rhonchi Back: non-tender, no CVA tenderness bilaterally to percussion. No CT LS midline pain GI: soft, no tenderness to palpation, no masses appreciated. No rebound, guarding, or rigidity noted. No flank pain bilateral, No distention Musculoskeletal: Patient has full range of motion of all of the extremities Except the left hip/extremity. Patient does not have much pain with flexion and extension of left hip, she has more pain with internal/external rotation of the left hip. No ecchymosis noted. She does have moderate tenderness palpation over the left greater trochanter. no motor, sensory, or focal neurological deficits Neurological: A&O x3, normal speech Psychiatric: Cooperative Related Data Home Medications Medication Instructions Recorded Confirmed amlodipine 10 mg tablet 10 mg PO QDAY 08/10/22 02/10/23 hydrochlorothiazide 25 mg tablet 25 mg PO QDAY 08/10/22 02/10/23 levothyroxine 88 mcg tablet 88 mcg PO QDAY 08/10/22 02/10/23 losartan 100 mg tablet 100 mg PO QDAY 08/10/22 02/10/23 potassium chloride 20 mEq 20 meq PO TID 08/10/22 02/10/23 tablet,extended release pravastatin 80 mg tablet 80 mg PO QDAY 08/10/22 02/10/23 carvedilol 25 mg tablet 25 mg PO Q12H 02/10/23 02/10/23 levofloxacin 500 mg tablet 500 mg PO Q24H 02/10/23 02/10/23 magnesium oxide 400 mg (241.3 mg 400 mg PO BID PRN constipation 02/10/23 02/10/23 magnesium) tablet nirmatrelvir 300 mg (150 mg See Rx Instructions PO .COMPLEX 02/10/23 02/10/23 x2)-ritonavir 100 mg tablet,dose pack (Paxlovid) Previous Rx's Medication Instructions Recorded pantoprazole 40 mg tablet,delayed 40 mg PO DAILY #30 tabs 08/17/22 release (Protonix) Allergies Allergy/AdvReac Type Severity Reaction Status Date / Time atorvastatin Allergy Severe HIVES Verified 11/10/22 20:35 prednisone Allergy Severe Rash Verified 11/10/22 20:35 [facility] Medical History Surgical History Family History Mother Family history of CHF (congestive heart failure) Father Lupus Brother Family history of myocardial infarction Family history of stroke Other Arthritis Family history of hypertension Social History Within the past year, how often did you have a drink containing alcohol: never Score interpretation: A score less than 3 is consistent with normal alcohol consumption. 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 Highest level of school completed/degree received: 8th grade Are you now , , , , never or living with a partner: In a typical week, how many times do you talk on the telephone with family, friends, or neighbors: 3 or more times per week How often do you get together with friends or relatives: 3 or more times per week How often do you attend sabianist or episcopal services: 4 or more times per year Do you belong to any clubs or organizations such as sabianist groups unions, fraternal or athletic groups, or school groups: yes Total score: 3 Score interpretation: A score of greater than or equal to 2 indicates the lowest level of social isolation. Little interest or pleasure in doing things: not at all Feeling down, depressed, or hopeless: not at all Feel stressed/tense/nervous/anxious/difficulty sleeping: not at all Life stressors: recent of family or friend Do you think of yourself as: straight/heterosexual Gender Identity: female Exam Constitutional Vital Signs, click to edit/add: Last Vital Signs Temp 98.1 F 02/10/23 13:26 Pulse 66 02/10/23 14:00 Resp 18 02/10/23 14:00 BP 152/68 H 02/10/23 14:00 Pulse Ox 92 L 02/10/23 14:00 O2 Del Method Room Air 02/10/23 14:00 Course Vital Signs Vital signs: Vital Signs Temperature 98.1 F 02/10/23 08:59 Pulse Rate 72 02/10/23 08:59 Respiratory Rate 18 02/10/23 08:59 Blood Pressure 168/90 H 02/10/23 08:59 Pulse Oximetry 98 02/10/23 08:59 Oxygen Delivery Method Room Air 02/10/23 08:59 Temperature 98.1 F 02/10/23 13:26 Pulse Rate 66 02/10/23 14:00 Respiratory Rate 18 02/10/23 14:00 Blood Pressure 152/68 H 02/10/23 14:00 Pulse Oximetry 92 L 02/10/23 14:00 Oxygen Delivery Method Room Air 02/10/23 14:00 Medical Decision Making MDM Narrative Medical decision making narrative: 09 CT of the pelvis was done initially because she has no pain with flexion and extension of the hip to moderate pain with internal/external rotation. Unsure if patient will have a left cervical, intertrochanteric over left femur fracture versus acetabular fracture or pelvic fracture secondary to her clinic exam. 1130 Patient's sodium is 120, potassium is 2.8, chloride is 82. Patient has a history of low potassium and magnesium levels. Magnesium level still pending. Patient will be given oral and IV potassium. Patient will follow-up in the admitted to the hospital to Dr. Clemente for Electrolyte replacement. Patient's magnesium was 1.5. Patient was given oral tablet. Patient's daughter and grandson were at bedside at discharge. They were very concerned at the end of each month for the past 4 months patient is having syncopal episodes, falling, and having left foot abnormalities. They wanted the message relayed to Dr. Clemente which I did through text and he acknowledged the information that family is concerned about these episodes, looking for further testing, or much like testing at the end of the month to try and catch she's episodes before they happen again. They're wondering why it's happening at the end of the month for the last [address] Clemente will do further testing as needed. Patient felt better after 1 L of IV fluid. Patient be transferred to the for with a magnesium tablet, drinking oral potassium, and IV potassium started. Critical care time 31 minutes exclusive from separate billable procedures that were performed. The following was considered in the determination of critical care but not limited to the level of medical decision making, intensive cardiac and/or respiratory monitoring, frequent vital sign monitoring, evaluation of laboratory studies, evaluation of radiographic studies, oxygen monitoring, and constant monitoring and speaking to family at bedside. Lab Data Labs: Lab Results 02/10/23 02/10/23 Range/Units 09:53 10:44 WBC 9.5 (4.0-11.0) 10^3/uL RBC 4.09 L (4.20-5.40) 10^6/uL Hgb 12.3 (12.0-16.0) g/dL Hct 35.2 L (36.0-48.0) % MCV 86.1 (81.0-99.0) fL MCH 30.1 (26.7-34.0) pg MCHC 34.9 (29.9-35.2) g/dL RDW 12.8 (11.0-15.0) % Plt Count 312 (150-450) 10^3/uL MPV 8.5 L (9.5-13.5) fL Neut % (Auto) 78.3 H (43.0-75.0) % Lymph % (Auto) 12.1 L (20.5-60.0) % Mchenry % (Auto) 8.4 (1.7-12.0) % Eos % (Auto) 0.2 L (0.9-7.0) % Baso % (Auto) 0.2 (0.2-2.0) % Neut # (Auto) 7.4 H (1.4-6.5) 10^3/uL Lymph # (Auto) 1.2 (1.2-3.8) 10^3/uL Mchenry # (Auto) 0.8 (0.3-0.8) 10^3/uL Eos # (Auto) 0.0 (0.0-0.7) 10^3/uL Baso # (Auto) 0.0 (0.0-0.1) 10^3/uL Abs Immat Gran (auto) 0.08 H (0.00-0.03) 10^3/uL Imm/Tot Granulo (auto) 0.8 H (0.0-0.5) % PT 10.3 (9.0-11.6) sec INR 0.97 APTT 30.2 (22.3-36.2) sec Sodium 120 L* (136-145) mmol/L Potassium 2.8 L* (3.5-5.1) mmol/L Chloride 82 L* (98-107) mmol/L Carbon Dioxide 27.8 (21.0-32.0) mmol/L Anion Gap 13.0 BUN 11.0 (7.0-18.0) mg/dL Creatinine 0.74 (0.55-1.02) mg/dL Est GFR ( Amer) >60 (>=60) Est GFR (Non-Af Amer) >60 (>=60) BUN/Creatinine Ratio 14.9 Glucose 121 H (74-106) mg/dL Lactate 1.0 (0.4-2.0) mmol/L Calcium 8.8 (8.5-10.1) mg/dL Magnesium 1.5 L (1.8-2.4) mg/dL Total Bilirubin 0.7 (0.2-1.0) mg/dL AST 20 (15-37) U/L ALT 23 (14-59) U/L Alkaline Phosphatase 63 (46-116) U/L Total Creatine Kinase 76 (26-192) U/L Troponin I High Sens 5.0 (4.0-51.3) pg/mL Total Protein 6.6 (6.4-8.2) g/dL Albumin 2.7 L (3.4-5.0) g/dL Globulin 3.9 g/dL Albumin/Globulin Ratio 0.7 Urine Color Lt. yellow (YELLOW) Urine Clarity Clear (CLEAR) Urine pH 6.5 (5.0-9.0) Ur Specific Reading 1.010 (1.005-1.025) Urine Protein Negative (NEG/TRACE) mg/dL Urine Glucose (UA) Negative (NEGATIVE) mg/dL Urine Ketones Negative (NEGATIVE) mg/dL Urine Occult Blood Negative (NEGATIVE) Urine Nitrite Negative (NEGATIVE) Urine Bilirubin Negative (NEGATIVE) Urine Urobilinogen 0.2 (0.2-1.0) EU/dL Ur Leukocyte Esterase Negative (NEGATIVE) ECG Data Attestation: I personally reviewed and interpreted this ECG as follows: (EKG interpretation. Normal sinus rhythm at 70 beats a minute. Normal axis deviation. Artifact noted. Right bundle-branch block noted. QTC of 480.) Discharge Plan Discharge Chief Complaint: Fall Clinical Impression: COVID, Hyponatremia, Fall, Contusion of hip, left, Acute hypokalemia, Hypochloremia Patient Disposition: Admitted As Inpatient Time of Disposition Decision: 11:41 Discharge Date/Time: 02/10/23 13:03
[2023-02-10 10:04] LABS: Basophils Percent Auto 0.2 % (0.2-2.0); Eosinophils Percent Auto 0.2 % (0.9-7.0); Hematocrit 35.2 % (36.0-48.0); Hemoglobin 12.3 g/dL (12.0-16.0); Immature Granulocytes Abs Auto 0.08 10^3/uL (0.00-0.03); Immature Granulocytes Pct Auto 0.8 % (0.0-0.5); Lymphocytes Absolute Auto 1.2 10^3/uL (1.2-3.8); Lymphocytes Percent Auto 12.1 % (20.5-60.0); Mean Corpuscular HGB Conc 34.9 g/dL (29.9-35.2); Mean Corpuscular Hemoglobin 30.1 pg (26.7-34.0); Mean Corpuscular Volume 86.1 fL (81.0-99.0); Mean Platelet Volume 8.5 fL (9.5-13.5); Monocytes Absolute Auto 0.8 10^3/uL (0.3-0.8); Monocytes Percent Auto 8.4 % (1.7-12.0); Neutrophils Absolute Auto 7.4 10^3/uL (1.4-6.5); Neutrophils Percent Auto 78.3 % (43.0-75.0); Platelet Count 312 10^3/uL (150-450); Red Blood Count 4.09 10^6/uL (4.20-5.40); Red Cell Distribution Width 12.8 % (11.0-15.0); White Blood Count 9.5 10^3/uL (4.0-11.0)
[2023-02-10 10:27] LABS: INR 0.97; Partial Thromboplastin Time 30.2 sec (22.3-36.2); Prothrombin Time 10.3 sec (9.0-11.6)
[2023-02-10 10:29] LABS: Creatine Kinase 76 U/L (26-192)
[2023-02-10 10:55] LABS: Bilirubin Urine NEGATIVE (NEGATIVE); Blood Urine NEGATIVE (NEGATIVE); Clarity Urine CLEAR (CLEAR); Color Urine LT. YELLOW (YELLOW); Glucose Urine UA NEGATIVE (NEGATIVE); Ketones Urine NEGATIVE (NEGATIVE); Leukocyte Esterase Urine NEGATIVE (NEGATIVE); Nitrite Urine NEGATIVE (NEGATIVE); Protein Urine NEGATIVE (NEG/TRACE); Urobilinogen Urine 0.2 EU/dL (0.2-1.0); pH Urine 6.5 (5.0-9.0)
[2023-02-10 10:56] LABS: Urine Microscopic Indicated NO
[2023-02-10 10:58] LABS: Alanine Aminotransferase 23 U/L (14-59); Albumin Globulin Ratio 0.7; Albumin Level 2.7 g/dL (3.4-5.0); Alkaline Phosphatase 63 U/L (46-116); Aspartate Amino Transferase 20 U/L (15-37); BUN Creatinine Ratio 14.9; Bilirubin Total 0.7 mg/dL (0.2-1.0); Calcium 8.8 mg/dL (8.5-10.1); Carbon Dioxide 27.8 mmol/L (21.0-32.0); Estimated GFR (African America >60 (>=60); Estimated GFR (Non-African Ame >60 (>=60); Globulin 3.9 g/dL; Glucose 121 mg/dL (74-106); Total Protein 6.6 g/dL (6.4-8.2)
[2023-02-10 11:12] LABS: Sodium 120 mmol/L (136-145)
[2023-02-10 11:13] LABS: Potassium 2.8 mmol/L (3.5-5.1)
[2023-02-10 11:14] LABS: Chloride 82 mmol/L (98-107)
[2023-02-10 11:42] LABS: Magnesium 1.5 mg/dL (1.8-2.4)
[2023-02-10] MEDS: MAGNESIUM OXIDE 400 MG TABLET 800 MG PO (12:05)
[2023-02-10] MEDS: POTASSIUM CHLORIDE IN 0.9%NACL 1,000 ML 250 MEQ IV (12:05)
[2023-02-10] MEDS: POTASSIUM BICARBONATE/CIT 25 MEQ TABLET EFF 50 MEQ PO ×2 (12:09→12:15)
--- OUTSIDE RECORDS SUMMARY | 2023-02-10 13:12 | XMS_ITS | CCD ---
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 Name Role Phone PHYSICIAN, DEFAULT Admitting Unavailable [...] Care Provider CALISTA ACEVES Primary Care Physician [phone] DR VALERIE DARDEN Consulting Unavailable JEREMIAH .DR [...] Unavailable MD Addy Daniels Primary Care Provider [phone] DO Camacho Ladd Emergency Provider [facility] Camacho Rocha Admitting Unavailable Addy Daniels [...] Allergy 8 Hives, Eruption of skin (disorder) [place], [place] (2 sources) predniSONE Drug Allergy 7 [facility] Repository (1 source) predniSONE Drug Allergy 3 [facility] Repository (3 sources) atorvastatin; Translations: [atorvastatin] Drug Allergy 3 Unknown (qualifier value) [facility] (2 sources) Ibuprofen; Translations: [ibuprofen] Drug Allergy Unknown (qualifier value) [facility] Natalya Medications Current Medications Medication Drug Class(es) [...] Antibacterial, Polymyxin-class Antibacterial Start: 11-16-2018 End: 11-18-2018 ywwrsoxa-keurvybdxg-yqeckinx n (NEOSPORIN) ointment carvedilol (1 source) alpha-Adrenergic [...] 5 August 05, 2022 polyethylene glycol 3350 82923 mg powder for oral solution (1 source) Osmotic Laxative Start: 11-15-2018 polyethylene glycol (GLYCOLAX) packet 17 g Potassium Chloride (7 sources) Start: 08-10-2022 Potassium Chlo ride (Ggz-Vyda-Cwb 10) mEq, Oral, BID Start Date: 08/10/22 Status: Ordered Start: 11-05-2018 End: 11-05-2018 potassium chloride (KLOR-CON M) extended release tablet 40 mEq Start: 11-04-2018 20 mEq, Oral, 2 TIMES DAILY, First dose on Aura 11/15/18 at 2100 Dilute with at least 4 ounces of cold water. May further dilute if GI adverse effects occur. 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 USE OF ASPIRIN] Onset: 12-31-2021 Episodic 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 source) 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; Translations: [OTH ASSISTED CURRENT DRUG THERAPY] Onset: 12-31-2021 Episodic Residual [...] Range Facility Office Visiton 01-11-2023 Follow-up visit [id number] Hiram Madrid 1935 F Date Provider Department Center 01/11/2023 LESLY GASPAR CARD [facility] Family History Problem Relation Age of Onset Hypertension Mother Lupus Mother Coronary artery disease Mother Heart attack Mother Hypertension Father Aneurysm Father Coronary artery disease Father Hypertension Sister Lupus Sister Family Status - Relation Status Age at Mother Father Sister Level of Service:66091 MO OFFICE/OUTPATIENT ESTABLISHED MOD MDM 30-39 MIN Normal [facility] Lab Reportson 12-23-2022 Lab Reports [id number] 0TIFF Normal [facility] Urology Office/Clinic Noteon 12-23-2022 Urology Office/Clinic Note [...] Pt presented to ER due to syncope. [place] was found incidentally on CT. CT AP [...] Contact Information ABDULLAHI NOONAN, MIKAYLA Pereira, URL [address] [place] [address] [phone] Additional Instructions: 6 mos w/ renal fxn [...] Tab losartan 100 mg Tab Potassium Chloride (Kjl-Wtsn-Gty 10), Oral, BID pravastatin 80 mg Tab [...] virus vaccine, (more content not included)... Normal [facility] Comment on above: Result Comment: Elec tronically Signed By: MIKAYLA WEISS PA-C\.br\Date and Time Signed: 12/23/22 12:13 EDT\.br\Electronically Co-Signed By: Jacquie Gan\.br\Date and Time Co-Signed: 12/22/22 12:27 EDT Ambulatory Visit Summaryon 1 02-21-2022 Ambulatory Visit Summary HIRAM MADRID :1935 Visit Date:12/22/2022 Ambulatory Visit Instructions Your Diagnosis Hydronephrosis, right Ureteral stenosis Tests Performed Urnls Dip Stick Auto w/o Microscopy POC 00014 US Renal -- Results Pending -- Please [...] 100 mg Tab) potassium chloride (Potassium Chloride (Dwj-Mqyt-Gsc 10)) pravastatin (pravastatin 80 mg Tab) Procedures Performed Appendectomy, Bilateral salpingo-oophorectomy, Cataract extraction and insertion of intraocular lens, Cholecystectomy, Colonoscopy, Procedure on back, Tonsillectomy. Discharge Vitals Blood Pressure 124/84 Height 155 cm Height 61 in Weight 64.8 kg Weight 142.56 lb BMI 26.97 What to do next Scheduled Follow-Up Appointments June. 2023 9:30 AM EDT With: MIKAYLA WEISS PA-C Where: [facility] Natalya Anders [facility] Patient Educationon 12-23-19 Patient Education Urology Hydronephrosis [...] Follow these instructions at home: ? Take kcip-rrc-yxlvmvv and prescription medicines only as told by [...] provider. Document Revised: 05/26/2020 Document Reviewed: 05/26/2020 [employer] Patient Education ? 2022 [employer]. Normal [facility] RAD - Ultrasound Reporton RAD - Ultrasound Report [id number] 0TIFF [place] Reminderson 12-22-2022 Reminders - From: Jacquie Gan To: ERIN Weiss; Sent: 12/22/2022 12:30:05 EDT Show up: 05/23/2023 12:30:00 EDT Subject: JAC and BUN/Creatinine prior to appt Reminder Message Please Remember to:_have pt schedule JAC prior to appt. Please look for BUN/Cr labs from PCP. If unable to locate recent labs, send pt order to complete this. Normal [facility] Orders Onlyon 10-25-2022 Orders Only [id number] Hiram Madrid 1935 F Date Provider Department Center 10/25/2022 [facility] Family History Problem Relation Age of Onset Hypertension Mother Lupus Mother Coronary artery disease Mother Heart attack Mother Hypertension Father Aneurysm Father Coronary artery disease Father Hypertension Sister Lupus Sister Family Status - Relation Status Age at Mother Father Sister Normal [facility] 37on 10-14-2022 37 Increase coreg/carvedilol to 25 mg twice a day- you have 12.5 mg tabs now so take 2 twice a day until this bottle is gone- your next refill will be the higher dose of 25 mg bid. Have labs drawn [facility] Office Visiton 10-14-2022 Follow-up visit [id number] Hiram Madrid 1935 Date Provider Department Center 10/14/2022 LESLY GASPAR SONIA Fatmata [facility] Family History Problem Relation Age of Onset Hypertension Mother Lupus Mother Coronary artery disease Mother Heart attack Mother Hypertension Father Aneurysm Father Coronary artery disease Father Hypertension Sister Lupus Sister Family Status - Relation Status Age at Mother Father Sister Level of Service:21027 MO OFFICE/OUTPATIENT ESTABLISHED MOD MDM 30-39 MIN [facility] Consent for Procedure/Surger yon 09-07-2022 Consent for Procedure/Surgery [id number]#1. 00CD:127 [place] Ambulatory Visit Summaryon 0 09-06-2022 Ambulatory Visit [...] 100 mg Tab) potassium chloride (Potassium Chloride (Mbg-Vdox-Lwt 10)) pravastatin (pravastatin 80 mg Tab) Procedures Performed Appendectomy, Bilateral salpingo-oophorectomy, Cataract extraction and insertion of intraocular lens, Cholecystectomy, Colonoscopy, Procedure on back, Tonsillectomy. Discharge Vitals Height 155 cm Height 61 in Weight 65 kg Weight 143 lb BMI 27.06 What to do next Scheduled Follow-Up Appointments Monday 2:00 PM EDT With: CHRISTY DUMONT, Raymond Mckeon Where: [facility] Patient Educationon 09-07-19 Patient Education Urology Hydronephrosis [...] Follow these instructions at home: ? Take rhep-aos-zrosenu and prescription medicines only as told by [...] provider. Document Revised: 05/26/2020 Document Reviewed: 05/26/2020 [employer] Patient Education ? 2022 [employer] Normal [facility] Urology Office/Clinic Noteon 09-06-2022 Urology Office/Clinic Note [...] [facility] [address], [place] [address]- Additional Instructions: 3 mos no labs Patient [...] Tab losartan 100 mg Tab Potassium Chloride (Riy-Ktsh-Nal 10), Oral, BID pravastatin 80 mg Tab [...] inactivated 12/06/2016 Rec (more content not included)... [place] Comment on above: Result Comment: Elec tronically Signed By: Raymond HARRISON MD\.br\Date and Time Signed: 09/06/22 13:02 EDT\.br\Electronically Co-Signed By: Josefa Stewart\.br\Date and Time Co-Signed: 09/06/22 13:01 EDT Operative Reporton Operative Report [id number] CD:127 [place] RAD - MISCon 08-12-2022 RAD - MISC [id number] CD:127 [place] Ambulatory Visit Summaryon 0 08-10-2022 Ambulatory Visit Summary HIRAM MADRID :1935 Visit Date:08/10/2022 Ambulatory Visit Instructions Your Diagnosis Hydronephrosis, right Aspirin long-term use Tests Performed Urnls Dip Stick Auto w/o Microscopy POC 13820 Your Care Team Attending Physician - Raymond HARRISON MD Primary Care Physician - Addy Daniels MD This Is Your Medications List Contact prescribing physician if questions or concerns amlodipine (amLODIPine 10 mg Tab) aspirin (aspirin 81 mg oral capsule) carvedilol hydrochlorothiazide levothyroxine (levothyroxine 88 mcg (0.088 mg) Tab) losartan (losartan 100 mg Tab) potassium chloride (Potassium Chloride (Hqd-Yixt-Rhh 10)) pravastatin (pravastatin 80 mg Tab) Procedures [...] When: Where: [facility] [address] [place] [address]- Medications What How Much When Instructions Unchanged [...] or concerns Unchanged potassium chloride (Potassium Chloride (Dhq-Jufa-Xei 10)) 2 times a day Contact prescribing physician if questions or concerns Unchanged pravastatin (pravastatin 80 mg Tab) 30 EA, TAKE 1 TABLET BY MOUTH ONCE DAILY Contact prescribing physician if questions or concerns Test Results Urnls Dip Stick Auto w/o Microscopy POC 28224 (08/10/2022) Bilirubin Urine Dipstick - Negative Blood Urine Dipstick - Negative Glucose Urine Dipstick - Negative Ketones Urine Dipstick - Negative Leukocytes Urine Dipstick - Trace Nitrite Urine Dipstick - Negative Protein Urine Dipstick - Negative Specific Macy Urine Dipstick - 1.025 Urine Appearance Urine [...] what caus (more content not included)... Normal [facility] Ambulatory Visit Summary HIRAM MADRID :1935 Visit Date:08/10/2022 Ambulatory Visit Instructions Your Diagnosis Hydronephrosis, right Aspirin long-term use Tests Performed Urnls Dip Stick Auto w/o Microscopy POC 65749 Your Care Team Attending Physician - CHRISTY DUMONT, Raymond Mckeon Primary Care Physician - Addy Daniels MD This Is Your Medications List Contact prescribing physician if questions or concerns amlodipine (amLODIPine 10 mg Tab) aspirin (aspirin 81 mg oral capsule) carvedilol hydrochlorothiazide levothyroxine (levothyroxine 88 mcg (0.088 mg) Tab) losartan (losartan 100 mg Tab) potassium chloride (Potassium Chloride (Lsx-Syrk-Yjh 10)) pravastatin (pravastatin 80 mg Tab) Procedures [...] Where: [facility] [address] [place] [address]- Medications What How Much When Instructions Unchanged [...] or concerns Unchanged potassium chloride (Potassium Chloride (Vsh-Dyam-Tgc 10)) 2 times a day Contact prescribing physician if questions or concerns Unchanged pravastatin (pravastatin 80 mg Tab) 30 EA, TAKE 1 TABLET BY MOUTH ONCE DAILY Contact prescribing physician if questions or concerns Test Results Urnls Dip Stick Auto w/o Microscopy POC 22531 (08/10/2022) Bilirubin Urine Dipstick - Negative Blood Urine Dipstick - Negative Glucose Urine Dipstick - Negative Ketones Urine Dipstick - Negative Leukocytes Urine Dipstick - Trace Nitrite Urine Dipstick - Negative Protein Urine Dipstick - Negative Specific Macy Urine Dipstick - 1.025 Urine Appearance Urine [...] what caus (more content not included)... Normal [facility] Consent for Procedure/Surger yon 08-10-2022 Consent for Procedure/Surgery [id number] CD:127 [place] Formson 08-10-2022 Forms [id number] CD:127 [place] Patient Educationon 08-11-19 Patient Education Urology Hydronephrosis [...] Follow these instructions at home: ? Take hnuh-une-qoxbuhf and prescription medicines only as told by [...] provider. Document Revised: 05/26/2020 Document Reviewed: 05/26/2020 [employer] Patient Education ? 2022 [employer]. whodoyou [facility] Urology Office/Clinic Noteon 08-10-2022 Urology Office/Clinic Note Chief Complaint Kidney stones HPI Staff New Pt follow up to [facility] on 08/05/[address] to [address] [...] female new pt following up to [facility] ER visit on 08/05/22 due to nausea, [...] General anesthesia. 2. 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 Follow-up With When Contact Information Raymond HARRISON MD, URL [facility] [address], [place] [address]- Additional Instructions: schedule R URS, possible laser [...] No qualifyin (more content not included)... Normal [facility] Comment on above: Result Comment: Elec tronically Signed By: Raymond HARRISON MD\.br\Date and Time Signed: 08/10/22 09:39 EDT\.br\Electronically Co-Signed By: Josefa Stewart\.br\Date and Time Co-Signed: 08/10/22 09:38 EDT XR KUBon 08-09-2022 XR [facility]UB [facility] [address] [address] XRay Report Signed Patient: Hiram Madrid MR#: [id number] : 1935 Acct:[id number] Age/Sex: 86 / F ADM Date: 08/09/22 Loc: XD Room: [facility] Attending Dr: Raymond Harrison MD Copies to: [...] Lopez Jr., D.OYou08/09/2022 3:58 PM Dictation Location: [place] [address] Transcribed By: [facility] 08/09/22 1558 Dictated By: Kameron Lopez Jr, DO 08/09/22 1555 Signed By: 08/09/22 1558 Normal [facility] CT abdomen pelvis wo conon 0 08-06-2022 CT abdomen pelvis wo con [place] [id number] CT Scan Report Signed Patient: Hiram Madrid MR#: [id number] : 1935 Acct:[id number] Age/Sex: 86 / F ADM Date: 08/05/22 Loc: ER Room: Type: [facility] ER Attending Dr: Copies to: Camacho [...] Faye Wyman M.D.08/06/2022 8:43 AM Dictation Location: [place] [address] Transcribed By: [facility] 08/06/22 0843 Dictated By: Faye Wyman MD 08/06/22 0830 Signed By: 08/06/22 0843 Normal [facility] Alanine aminotransferase [En zymatic activity/volume] in Serum or PlasmaOrdered By: Camacho Ladd on 08-05-2022 ALT [Catalytic activity/Vol] 16 U/L 7-52 [facility] Albumin [Mass/volume] in Ser um or Plasma by Bromocresol green (BCG) dye binding methoOrdered By: Camacho Ladd on 08-05-2022 Albumin BCG dye [Mass/Vol] 4.4 g/dL 3.5-5.7 [facility] Alkaline phosphatase [Enzyma tic activity/volume] in Serum or PlasmaOrdered By: Camacho Ladd on 08-05-2022 ALP [Catalytic activity/Vol] 61 U/L 34-104 [facility] Aspartate aminotransferase [ Enzymatic activity/volume] in Serum or PlasmaOrdered By: Camacho Ladd on 08-05-2022 AST [Catalytic activity/Vol] 21 U/L 13-39 [facility] Automated erythrocytes count in urine sediment (number/area)Ordered By: Camacho Ladd on 08-05-2022 RBC Auto (Urine sed) [#/Area] 0-1 [HPF] 0-4 [facility] Automated leukocytes count i n urine sediment (number/area)Ordered By: Camacho Ladd on 08-05-2022 WBC Auto (Urine sed) [#/Area] 1-2 [HPF] 0-4 [facility] Basic Metabolic Panelon 07-21 Anion gap [Moles/Vol] 17.8 mmol/L High 6.0-15.0 [facility] Comment on above: Performed By: #### H S TROP, HEPATIC, LIPASE, CBC, BMP #### [facility] [address] Calcium [Mass/Vol] 9.7 mg/dL Normal 8.6-10.3 [facility] Comment on above: Performed By: #### H S TROP, HEPATIC, LIPASE, CBC, BMP #### [facility] [address] [place] [address] [place] Chloride [Moles/Vol] 87 mmol/L Low 98-107 [facility] Comment on above: Performed By: #### H S TROP, HEPATIC, LIPASE, CBC, BMP #### [facility] [address] [place] [address] [place] CO2 [Moles/Vol] 23.2 mmol/L Normal 21.0-31.0 [facility] Comment on above: Performed By: #### H S TROP, HEPATIC, LIPASE, CBC, BMP #### [facility] [address] Creatinine [Mass/Vol] 1.03 mg/dL Normal 0.60-1.20 [facility] Comment on above: Performed By: #### H S TROP, HEPATIC, LIPASE, CBC, BMP #### [facility] [address] Creatinine Clr Calc Pharmacy 35.13 [facility] Comment on above: Performed By: #### H S TROP, HEPATIC, LIPASE, CBC, BMP #### [place] [address] [place] GFR/1.73 sq M.predicted MDRD (S/P/Bld) [Vol rate/Area] 53.284 mL/min/{1.73_m2} [facility] Comment on above: Performed By: #### H S TROP, HEPATIC, LIPASE, CBC, BMP #### [address] Glucose [Mass/Vol] 156 mg/dL High 70-100 [facility] Comment on above: Result Comment: [facility] Glucose Reference Range is dependent on time and content of last meal. Glucose of more than 200 mg/dL in a nonstressed, ambulatory subject supports the diagnosis of Diabetes Mellitus. ADA recommended reference range Performed By: #### H S TROP, HEPATIC, LIPASE, CBC, BMP #### [address] Potassium [Moles/Vol] 3.0 mmol/L Low 3.5-5.1 [facility] Comment on above: Performed By: #### H S TROP, HEPATIC, LIPASE, CBC, BMP #### [place] [address] [place] Sodium [Moles/Vol] 125 mmol/L Low 136-145 [facility] Comment on above: Performed By: #### H S TROP, HEPATIC, LIPASE, CBC, BMP #### [place] [address] [place] Urea nitrogen [Mass/Vol] 12 mg/dL Normal 7-25 [facility] Comment on above: Performed By: #### H S TROP, HEPATIC, LIPASE, CBC, BMP #### [facility] [address] Basophils Auto (Bld) [#/Vol] Ordered By: Camacho Ladd on 08-05-2022 Basophils (Bld) [#/Vol] 0.1 10*3/uL 0.0-0.2 [facility] Basophils/100 WBC Auto (Bld) Ordered By: Camacho Ladd on 08-05-2022 Basophils/100 WBC (Bld) 0.4 % . [facility] Bilirubin Test strip Ql (U)O rdered By: Camacho Ladd on 08-05-2022 Bilirubin Ql (U) Negative Negative [facility] Bilirubin.direct [Mass/volum e] in Serum or PlasmaOrdered By: Camacho Ladd on 08-05-2022 Bilirubin.direct [Mass/Vol] 0.10 mg/dL 0.03-0.18 [facility] Bilirubin.total [Mass/volume ] in Serum or PlasmaOrdered By: Camacho Ladd on 08-05-2022 Bilirubin [Mass/Vol] 0.7 mg/dL 0.3-1.0 [facility] Calcium [Mass/volume] in Ser um or PlasmaOrdered By: Camacho Ladd on 08-05-2022 Calcium [Mass/Vol] 9.7 mg/dL 8.6-10.3 [facility] Carbon dioxide, total [Moles /volume] in Serum or PlasmaOrdered By: Camacho Ladd on 08-05-2022 CO2 [Moles/Vol] 23.2 mmol/L 21.0-31.0 [facility] Chloride [Moles/volume] in S willa or PlasmaOrdered By: Camacho Ladd on 08-05-2022 Chloride [Moles/Vol] 87 mmol/L 98-107 [facility] Color Auto (U)Ordered By: Ender Ladd on 08-05-2022 Color (U) Yellow Yellow [facility] Complete Blood Count Auto Di ffon 08-05-2022 Basophils (Bld) [#/Vol] 0.1 10*3/uL Normal 0.0-0.2 [facility] Comment on above: Result Comment: PERF ORMED BY: [place] [address] PATHOLOGIST PRINTER TECHNICIAN GOSIA MCADAMS M.D. Performed By: #### H S TROP, HEPATIC, LIPASE, CBC, BMP #### [address] Basophils/100 WBC (Bld) 0.4 % Normal . [facility] Comment on above: Performed By: #### H S TROP, HEPATIC, LIPASE, CBC, BMP #### [address] Eosinophils (Bld) [#/Vol] 0.1 10*3/uL Normal 0.0-0.45 [facility] Comment on above: Performed By: #### H S TROP, HEPATIC, LIPASE, CBC, BMP #### [address] Eosinophils/100 WBC (Bld) 0.6 % Normal . [facility] Comment on above: Performed By: #### H S TROP, HEPATIC, LIPASE, CBC, BMP #### [address] Erythrocyte distribution width (RBC) [Ratio] 13.6 % Normal 11.9-15.3 [facility] Comment on above: Performed By: #### H S TROP, HEPATIC, LIPASE, CBC, BMP #### [address] Hematocrit (Bld) [Volume fraction] 37.3 % Normal 34.0-46.4 [facility] Comment on above: Performed By: #### H S TROP, HEPATIC, LIPASE, CBC, BMP #### [address] Hemoglobin (Bld) [Mass/Vol] 13.0 g/dL Normal 11.8-15.4 [facility] Comment on above: Performed By: #### H S TROP, HEPATIC, LIPASE, CBC, BMP #### [place] [id number] [place] Lymphocytes (Bld) [#/Vol] 3.1 10*3/uL Normal 1.00-4.8 [facility] Comment on above: Performed By: #### H S TROP, HEPATIC, LIPASE, CBC, BMP #### [facility] [address] [place] [address] Lymphocytes/100 WBC (Bld) 21.9 % Normal . [facility] Comment on above: Performed By: #### H S TROP, HEPATIC, LIPASE, CBC, BMP #### [address] MCH (RBC) [Entitic mass] 31.6 pg Normal 24.7-34.3 [facility] Comment on above: Performed By: #### H S TROP, HEPATIC, LIPASE, CBC, BMP #### [address] MCV (RBC) [Entitic vol] 90.4 fL Normal 80-100 [facility] Comment on above: Performed By: #### H S TROP, HEPATIC, LIPASE, CBC, BMP #### [address] Mean Corpuscular HGB Conc 35.0 g/dL Normal 32.0-35.0 [facility] Comment on above: Performed By: #### H S TROP, HEPATIC, LIPASE, CBC, BMP #### [address] Monocytes (Bld) [#/Vol] 1.4 10*3/uL High 0.0-0.8 [facility] Comment on above: Performed By: #### H S TROP, HEPATIC, LIPASE, CBC, BMP #### [address] Monocytes/100 WBC (Bld) 20.58 % High 0.00-20.00 [facility] Comment on above: Result Comment: For adults in ED, MDW > 20.0 may be associated with a higher risk of sepsis during the first 12 hrs of hospital admission Performed By: #### H S TROP, HEPATIC, LIPASE, CBC, BMP #### [address] Monocytes/100 WBC (Bld) 9.6 % Normal . [facility] Comment on above: Performed By: #### H S TROP, HEPATIC, LIPASE, CBC, BMP #### [address] Neutrophils (Bld) [#/Vol] 9.6 10*3/uL High 1.8-7.7 [facility] Comment on above: Performed By: #### H S TROP, HEPATIC, LIPASE, CBC, BMP #### [address] Neutrophils/100 WBC (Bld) 67.5 % Normal . [facility] Comment on above: Performed By: #### H S TROP, HEPATIC, LIPASE, CBC, BMP #### [address] NRBC% 0.1 /100{WBC} Normal 0-0.5 [facility] Comment on above: Performed By: #### H S TROP, HEPATIC, LIPASE, CBC, BMP #### [address] Platelet mean volume (Bld) [Entitic vol] 7.2 fL Normal 6.3-10.7 [facility] Comment on above: Performed By: #### H S TROP, HEPATIC, LIPASE, CBC, BMP #### [place] [address] [place] Platelets (Bld) [#/Vol] 500 10*3/uL High 150-450 [facility] Comment on above: Performed By: #### H S TROP, HEPATIC, LIPASE, CBC, BMP #### [address] RBC (Bld) [#/Vol] 4.13 10*6/uL Normal 3.60-5.00 [facility] Comment on above: Performed By: #### H S TROP, HEPATIC, LIPASE, CBC, BMP #### [place] [address] [place] WBC (Bld) [#/Vol] 14.2 10*3/uL High 3.8-11.6 [facility] Comment on above: Performed By: #### H S TROP, HEPATIC, LIPASE, CBC, BMP #### [facility] [address] [id number] [place] Creatinine [Mass/volume] in Serum or PlasmaOrdered By: Cmaacho Ladd on 08-05-2022 Creatinine [Mass/Vol] 1.03 mg/dL 0.60-1.20 [facility] Dipstick and Microscopicon 0 08-05-2022 Appearance (U) Cloudy Critically abnormal Clear [facility] Comment on above: Order Comment: Name Collection Type:: Clean-Voided Midstream Performed By: #### A DDONUAPLUS #### [facility] [address] Bacteria,Urine None Seen Normal None Seen [facility] Comment on above: Order Comment: Name Collection Type:: Clean-Voided Midstream Performed By: #### A DDONUAPLUS #### [facility] [address] [place] [address] [place] Bilirubin,Urine Negative Normal Negative [facility] Comment on above: Order Comment: Name Collection Type:: Clean-Voided Midstream Performed By: #### A DDONUAPLUS #### [facility] [address] [id number] [place] Color (U) Yellow Normal Yellow [facility] Comment on above: Order Comment: Name Collection Type:: Clean-Voided Midstream Performed By: #### A DDONUAPLUS #### [facility] [address] [phone] [place] Glucose Ql (U) Normal Normal Normal [facility] Comment on above: Order Comment: Name Collection Type:: Clean-Voided Midstream Performed By: #### A DDONUAPLUS #### [facility] [address] [phone] [place] Hyaline Casts,Urine None Seen Normal 0-8 [facility] Comment on above: Order Comment: Name Collection Type:: Clean-Voided Midstream Result Comment: PERF ORMED BY: [place] [address] PATHOLOGIST PRINTER TECHNICIAN GOSIA MCADMAS M.D. Performed By: #### A DDONUAPLUS #### [address] Ketones Ql (U) Negative Normal Negative [facility] Comment on above: Order Comment: Name Collection Type:: Clean-Voided Midstream Performed By: #### A DDONUAPLUS #### [address] Leukocyte esterase Test strip Ql (U) 1+ High Negative [facility] Comment on above: Order Comment: Name Collection Type:: Clean-Voided Midstream Performed By: #### A DDONUAPLUS #### [place] [address] [place] Nitrite,Urine Negative Normal Negative [facility] Comment on above: Order Comment: Name Collection Type:: Clean-Voided Midstream Performed By: #### A DDONUAPLUS #### [place] [address] [place] Occult Blood,Urine Negative Normal Negative [facility] Comment on above: Order Comment: Name Collection Type:: Clean-Voided Midstream Result Comment: PERF ORMED BY: [place] [address] PATHOLOGIST PRINTER TECHNICIAN GOSIA MCADAMS M.D. Performed By: #### A DDONUAPLUS #### [place] [address] [place] pH (U) 7.0 [pH] Normal 5.0-9.0 [facility] Comment on above: Order Comment: Name Collection Type:: Clean-Voided Midstream Performed By: #### A DDONUAPLUS #### [place] [address] [place] Protein,Urine Negative Normal Negative [facility] Comment on above: Order Comment: Name Collection Type:: Clean-Voided Midstream Performed By: #### A DDONUAPLUS #### [address] [place] [address] [place] RBC LM.HPF (Urine sed) [#/Area] 0 /[HPF] Normal 0-4 [facility] Comment on above: Order Comment: Name Collection Type:: Clean-Voided Midstream Performed By: #### A DDONUAPLUS #### [facility] [address] [place] [address] Specificy Macy,Urine 1.009 Normal 1.001-1.030 [facility] Comment on above: Order Comment: Name Collection Type:: Clean-Voided Midstream Performed By: #### A DDONUAPLUS #### [facility] [address] [place] [address] Squamous Epithelial Cell,Urine 0-1 Normal 0-2 [facility] Comment on above: Order Comment: Name Collection Type:: Clean-Voided Midstream Performed By: #### A DDONUAPLUS #### [facility] [address] [place] [address] Urobilinogen,Urine Normal Normal Normal [facility] Comment on above: Order Comment: Name Collection Type:: Clean-Voided Midstream Performed By: #### A DDONUAPLUS #### [facility] [address] [place] [address] [place] WBC,Urine 1-2 Normal 0-4 [facility] Comment on above: Order Comment: Name Collection Type:: Clean-Voided Midstream Performed By: #### A DDONUAPLUS #### [facility] [address] [place] [address] ECG 12 lead ECGon 08-05-2022 ECG 12 lead ECG [facility] Main [facility] [address] [place] [address] Electrocardiograph Report Signed Patient: Hiram Madrid MR#: [id number] : 1935 Acct:[id number] Age/Sex: 86 / F ADM Date: 08/05/22 Loc: ER Room: Type: [facility] ER Attending Dr: Ordering Provider: Camacho Ladd [...] branch block Confirmed by Camacho Ladd DO ([id number]) on 08/06/2022 1:49:12 AM Referred By: Electronically Signed By:Camacho Ladd DO Transcribed By: MUS Signed By Camacho Ladd DO 0149 Normal [facility] Eosinophils Auto (Bld) [#/Vo l]Ordered By: Camacho Ladd on 08-05-2022 Eosinophils (Bld) [#/Vol] 0.1 10*3/uL 0.0-0.45 [facility] Eosinophils/100 WBC Auto (Bl d)Ordered By: Camacho Ladd on 08-05-2022 Eosinophils/100 WBC (Bld) 0.6 % . [facility] Erythrocyte distribution wid th Auto (RBC) [Ratio]Ordered By: Camacho Ladd on 08-05-2022 Erythrocyte distribution width (RBC) [Ratio] 13.6 % 11.9-15.3 [facility] Globulin Calc (S) [Mass/Vol] Ordered By: Camacho Ladd on 08-05-2022 Globulin (S) [Mass/Vol] 2.9 g/dL [facility] Glucose [Mass/volume] in Ser um or PlasmaOrdered By: Camacho Ladd on 08-05-2022 Glucose [Mass/Vol] 156 mg/dL 70-100 [facility] Comment on above: ADA recommended refe rence rangeRandom Glucose Reference Range is dependent on time and content of last meal. Glucose of more than 200 mg/dL in a nonstressed, ambulatory subject supports the diagnosis of Diabetes Mellitus. Hematocrit Auto (Bld) [Volum e fraction]Ordered By: Camacho Ladd on 08-05-2022 Hematocrit (Bld) [Volume fraction] 37.3 % 34.0-46.4 [facility] Hemoglobin [Mass/volume] in BloodOrdered By: Camacho Ladd on 08-05-2022 Hemoglobin (Bld) [Mass/Vol] 13.0 g/dL 11.8-15.4 [facility] Hepatic Panelon 08-05-2022 Albumin [Mass/Vol] 4.4 g/dL Normal 3.5-5.7 [facility] Comment on above: Performed By: #### H S TROP, HEPATIC, LIPASE, CBC, BMP #### [facility] [address] Albumin/Globulin [Mass ratio] 1.5 {ratio} Normal [facility] Comment on above: Performed By: #### H S TROP, HEPATIC, LIPASE, CBC, BMP #### [facility] [address] ALP [Catalytic activity/Vol] 61 U/L Normal 34-104 [facility] Comment on above: Performed By: #### H S TROP, HEPATIC, LIPASE, CBC, BMP #### [facility] [address] [place] [address] [place] ALT [Catalytic activity/Vol] 16 U/L Normal 7-52 [facility] Comment on above: Performed By: #### H S TROP, HEPATIC, LIPASE, CBC, BMP #### [facility] [address] [place] [address] [place] AST [Catalytic activity/Vol] 21 U/L Normal 13-39 [facility] Comment on above: Performed By: #### H S TROP, HEPATIC, LIPASE, CBC, BMP #### [facility] [address] [place] [address] [place] Bilirubin [Mass/Vol] 0.7 mg/dL Normal 0.3-1.0 [facility] Comment on above: Performed By: #### H S TROP, HEPATIC, LIPASE, CBC, BMP #### [facility] [address] [place] [address] [place] Bilirubin,Indirect 0.6 mg/dL Normal [facility] Comment on above: Performed By: #### H S TROP, HEPATIC, LIPASE, CBC, BMP #### [facility] [address] [place] [address] [place] Bilirubin.indirect [Mass/Vol] 0.10 mg/dL Normal 0.03-0.18 [facility] Comment on above: Performed By: #### H S TROP, HEPATIC, LIPASE, CBC, BMP #### [facility] [address] Globulin (S) [Mass/Vol] 2.9 g/dL Normal [facility] Comment on above: Performed By: #### H S TROP, HEPATIC, LIPASE, CBC, BMP #### [facility] [address] Protein [Mass/Vol] 7.3 g/dL Normal 6.4-8.9 [facility] Comment on above: Performed By: #### H S TROP, HEPATIC, LIPASE, CBC, BMP #### [address] Ketones Auto test strip (U) [Mass/Vol]Ordered By: Camacho Ladd on 08-05-2022 Ketones (U) [Mass/Vol] Negative Negative [facility] - UrinalysisOrder ed By: Camacho Ladd on 08-05-2022 Hyaline casts LM Ql (Urine sed) None seen [LPF] 0-8 [facility] Leukocytes [#/volume] correc sofiya for nucleated erythrocytes in Blood by Automated counOrdered By: Camacho Ladd on 08-05-2022 WBC corrected for nucl RBC Auto (Bld) [#/Vol] 14.2 10*3/uL 3.8-11.6 [facility] Lipaseon 08-05-2022 Lipase [Catalytic activity/Vol] 23.0 U/L Normal 11.0-82.0 [facility] Comment on above: Result Comment: PERF ORMED BY: [address] [place] [address] PATHOLOGIST PRINTER TECHNICIAN GOSIA MCADAMS M.D. Performed By: #### H S TROP, HEPATIC, LIPASE, CBC, BMP #### [facility] [address] [place] [address] Lipase [Enzymatic activity/v olume] in Serum or PlasmaOrdered By: Camacho Ladd on 08-05-2022 Lipase [Catalytic activity/Vol] 23.0 U/L 11.0-82.0 [facility] Lymphocytes Auto (Bld) [#/Vo l]Ordered By: Camacho Ladd on 08-05-2022 Lymphocytes (Bld) [#/Vol] 3.1 10*3/uL 1.00-4.8 [facility] Lymphocytes/100 WBC Auto (Bl d)Ordered By: Camacho Ladd on 08-05-2022 Lymphocytes/100 WBC (Bld) 21.9 % . [facility] MCH Auto (RBC) [Entitic mass ]Ordered By: Camacho Ladd on 08-05-2022 MCH (RBC) [Entitic mass] 31.6 pg 24.7-34.3 [facility] MCHC Auto (RBC) [Mass/Vol]Or dered By: Camacho Ladd on 08-05-2022 MCHC (RBC) [Mass/Vol] 35.0 g/dL 32.0-35.0 [facility] MCV Auto (RBC) [Entitic vol] Ordered By: Camacho Ladd on 08-05-2022 MCV (RBC) [Entitic vol] 90.4 fL 80-100 [facility] Monocyte distribution width [Entitic volume] in Blood by AutomatedOrdered By: Camacho Ladd on 08-05-2022 Monocyte distribution width Auto (Bld) [Entitic vol] 20.58 % 0.00-20.00 [facility] Comment on above: For adults in ED, MD W > 20.0 may be associated with a higher risk of sepsis during the first 12 hrs of hospital admission Monocytes Auto (Bld) [#/Vol] Ordered By: Camacho Ladd on 08-05-2022 Monocytes (Bld) [#/Vol] 1.4 10*3/uL 0.0-0.8 [facility] Monocytes/100 WBC Auto (Bld) Ordered By: Camacho Ladd on 08-05-2022 Monocytes/100 WBC (Bld) 9.6 % . [facility] Neutrophils Auto (Bld) [#/Vo l]Ordered By: Camacho Ladd on 08-05-2022 Neutrophils (Bld) [#/Vol] 9.6 10*3/uL 1.8-7.7 [facility] Neutrophils/100 WBC Auto (Bl d)Ordered By: Camacho Ladd on 08-05-2022 Neutrophils/100 WBC (Bld) 67.5 % . [facility] Nitrite Test strip Ql (U)Ord ered By: Camacho Ladd on 08-05-2022 Nitrite Ql (U) Negative Negative [facility] No Panel InformationOrdered By: Camacho Ladd on 08-05-2022 Estimated GFR (CKD-EPI) 53.284 mL/Min [facility] Creatinine Clearance (Chem 35.13 [facility] Nucleated erythrocytes [Pres ence] in Blood by Automated countOrdered By: Camacho Ladd on 08-05-2022 Nucleated RBC Auto Ql (Bld) 0.1 /100{WBC} 0-0.5 [facility] Platelet mean volume Auto (B ld) [Entitic vol]Ordered By: Camacho Ladd on 08-05-2022 Platelet mean volume (Bld) [Entitic vol] 7.2 fL 6.3-10.7 [facility] Platelets Auto (Bld) [#/Vol] Ordered By: Camacho Ladd on 08-05-2022 Platelets (Bld) [#/Vol] 500 10*3/uL 150-450 [facility] Potassium [Moles/volume] in Serum or PlasmaOrdered By: Camacho Ladd on 08-05-2022 Potassium [Moles/Vol] 3.0 mmol/L 3.5-5.1 [facility] Protein Auto test strip (U) [Mass/Vol]Ordered By: Camacho Ladd on 08-05-2022 Protein (U) [Mass/Vol] Negative Negative [facility] Protein [Mass/volume] in Ser um or PlasmaOrdered By: Camacho Ladd on 08-05-2022 Protein [Mass/Vol] 7.3 g/dL 6.4-8.9 [facility] RBC Auto (Bld) [#/Vol]Ordere d By: Camacho Ladd on 06-16-2023 RBC (Bld) [#/Vol] 4.13 10*6/uL 3.60-5.00 [facility] Serum or plasma albumin/glob ulin mass ratioOrdered By: Camacho Ladd on 08-05-2022 Albumin/Globulin [Mass ratio] 1.5 {ratio} [facility] Serum or plasma anion gap de terminationOrdered By: Camacho Ladd on 08-05-2022 Anion gap [Moles/Vol] 17.8 mmol/L [facility] or plasma non-glucuron idated bilirubin measurement (mass/volume)Ordered By: Camacho Ladd on 08-05-2022 Bilirubin.indirect [Mass/Vol] 0.6 mg/dL [facility] Sodium [Moles/volume] in Ser um or PlasmaOrdered By: Camacho Ladd on 08-05-2022 Sodium [Moles/Vol] 125 mmol/L 136-145 [facility] Specific gravity Auto test s trip (U) [Rel density]Ordered By: Camacho Ladd on 08-05-2022 Specific gravity (U) [Rel density] 1.009 1.001-1.030 [facility] Squamous epithelial cells de tection in urine sediment by light microscopyOrdered By: Camacho Ladd on 08-05-2022 Epithelial cells.squamous LM Ql (Urine sed) 0-1 [HPF] 0-2 [facility] Troponin I High Sensitivityo n 08-05-2022 Troponin I High Sensitivity 7.7 pg/mL Normal 0.0-15.0 [facility] Comment on above: Result Comment: PERF ORMED BY: [place] [address] PATHOLOGIST PRINTER TECHNICIAN GOSIA MCADAMS M.D. Performed By: #### H S TROP, HEPATIC, LIPASE, CBC, BMP #### [address] Troponin I.cardiac [Mass/vol ume] in Serum or Plasma by Detection limit <= 0.01 ng/Ordered By: Camacho Ladd on 08-05-2022 Troponin I.cardiac DL <= 0.01 ng/mL [Mass/Vol] 7.7 pg/mL 0.0-15.0 [facility] Urea nitrogen [Mass/volume] in Serum or PlasmaOrdered By: Camacho Ladd on 08-05-2022 Urea nitrogen [Mass/Vol] 12 mg/dL 7-25 [facility] Urine bacteria detection by automated methodOrdered By: Camacho Ladd on 08-05-2022 Bacteria Auto Ql (U) None seen None Seen [facility] Urine clarity by refractomet ry automatedOrdered By: Camacho Ladd on 08-05-2022 Clarity Refractometry automated (U) Cloudy Clear [facility] Urine glucose measurement by automated test strip (mass/volume)Ordered By: Camacho Ladd on 08-05-2022 Glucose Auto test strip (U) [Mass/Vol] Normal mg/dL Normal [facility] Urine hemoglobin detection b y automated test stripOrdered By: Camacho Ladd on 08-05-2022 Hemoglobin Auto test strip Ql (U) Negative Negative [facility] Urine leukocyte esterase det ection by automated test stripOrdered By: Camacho Ladd on 08-05-2022 Leukocyte esterase Auto test strip Ql (U) 1+ Negative [facility] Urobilinogen Auto test strip (U) [Mass/Vol]Ordered By: Camacho Ladd on 08-05-2022 Urobilinogen (U) [Mass/Vol] Normal mg/dL Normal [facility] WBC Auto (Bld) [#/Vol]Ordere d By: Camacho Ladd on 08-05-2022 WBC (Bld) [#/Vol] 14.2 10*3/uL 3.8-11.6 [facility] pH Auto test strip (U)Ordere d By: Camacho Ladd on 08-05-2022 pH (U) 7.0 [pH] 5.0-9.0 [facility] BNPon 06-13-2022 Natriuretic peptide B (Bld) [Mass/Vol] 142.0 pg/mL Normal <=1,800.0 [facility] Comment on above: Performed By: #### T , BMP #### [facility] [address] [place] [address] Dr. Tasha Dodson CBC AUTO DIFFon 06-13-2022 BASO # 0.1 103/ul Normal 0.0-0.1 [facility] Comment on above: Performed By: #### T SH, BMP #### [facility] [address] [place] [address] Dr. Tasha Dodson Basophils/100 WBC (Bld) 1.0 % Normal 0.2-2.0 [facility] Comment on above: Performed By: #### T SH, BMP #### [facility] [address] [place] [address] Dr. Tasha Dodson EO # 0.3 103/ul Normal 0.0-0.7 [facility] Comment on above: Performed By: #### T SH, BMP #### [facility] [address] [place] [address] Dr. Tasha Dodson Eosinophils/100 WBC (Bld) 2.6 % Normal 0.9-7.0 [facility] Comment on above: Performed By: #### T SH, BMP #### [facility] [address] [place] [address] Dr. Tasha Dodson Erythrocyte distribution width (RBC) [Ratio] 13.4 % Normal 11.0-15.0 [facility] Comment on above: Performed By: #### T SH, BMP #### [facility] [address] [place] [address] Dr. Tasha Dodson Hematocrit (Bld) [Volume fraction] 39.5 % Normal 36.0-48.0 [facility] Comment on above: Performed By: #### T SH, BMP #### [facility] [address] [place] [address] Dr. Tasha Dodson Hemoglobin (Bld) [Mass/Vol] 13.1 g/dL Normal 12.0-16.0 [facility] Comment on above: Performed By: #### T SH, BMP #### [facility] [address] [place] [address] Dr. Tasha Dodson IG # 0.07 10e3/ul Critically high 0.00-0.03 [facility] Comment on above: Performed By: #### T SH, BMP #### [facility] [address] [address] [address] Tasha Dodson IG % 0.6 % Critically high 0.0-0.5 [facility] Comment on above: Performed By: #### T SH, BMP #### [facility] [address] [address] [address] Tasha Dodson LYMPH # 2.5 103/ul Normal 1.2-3.8 [facility] Comment on above: Performed By: #### T SH, BMP #### [facility] [address] [address] [address] Tasha Dodson Lymphocytes/100 WBC (Bld) 22.9 % Normal 20.5-60.0 [facility] Comment on above: Performed By: #### T SH, BMP #### [facility] [address] [address] [address] Tasha Dodson MANUAL DIFF REQ NO Normal [facility] Comment on above: Performed By: #### T SH, BMP #### [facility] [address] [address] [address] Tasha Dodson MCH (RBC) [Entitic mass] 30.7 pg Normal 26.7-34.0 [facility] Comment on above: Performed By: #### T SH, BMP #### [facility] [address] [address] [address] Tasha Dodson MCHC (RBC) [Mass/Vol] 33.2 g/dL Normal 29.9-35.2 [facility] Comment on above: Performed By: #### T SH, BMP #### [facility] [address] [address] [address] Tasha Dodson MCV (RBC) [Entitic vol] 92.5 fL Normal 81.0-99.0 [facility] Comment on above: Performed By: #### T SH, BMP #### [facility] [address] [address] [address] Tasha Dodson MONO # 0.8 103/ul Normal 0.3-0.8 [facility] Comment on above: Performed By: #### T SH, BMP #### [facility] [address] [address] [address] Tasha Dodson Monocytes/100 WBC (Bld) 7.0 % Normal 1.7-12.0 [facility] Comment on above: Performed By: #### T SH, BMP #### [facility] [address] [place] [address] Dr. Tasha Dodson NEUT # 7.2 103/ul Critically high 1.4-6.5 [facility] Comment on above: Performed By: #### T SH, BMP #### [facility] [address] [place] [address] Dr. Tasha Dodson Neutrophils/100 WBC (Bld) 65.9 % Normal 43.0-75.0 [facility] Comment on above: Performed By: #### T SH, BMP #### [facility] [address] [place] [address] Dr. Tasha Dodson Platelet mean volume (Bld) [Entitic vol] 8.0 fL Critically low 9.5-13.5 [facility] Comment on above: Performed By: #### T SH, BMP #### [facility] [address] [place] [address] Dr. Tasha Dodson PLT 449 103/ul Normal 150-450 [facility] Comment on above: Performed By: #### T SH, BMP #### [facility] [address] [place] [address] Dr. Tasha Dodson RBC 4.27 106/ul Normal 4.20-5.40 [facility] Comment on above: Performed By: #### T SH, BMP #### [facility] [address] [place] [address] Dr. Tasha Dodson WBC 10.9 103/ul Normal 4.0-11.0 [facility] Comment on above: Performed By: #### T SH, BMP #### [facility] [address] [place] [address] Dr. Tasha Dodson FREE THYROXINE INDEX T7on FTI 3.67 Normal 1.30-4.50 [facility] Comment on above: Performed By: #### T SH, BMP #### [facility] [address] [place] [address] Dr. Tasha Dodson T3U 36.0 % Normal 30.0-39.0 [facility] Comment on above: Performed By: #### T SH, BMP #### [facility] [address] [place] [address] Dr. Tasha Dodson T4 [Mass/Vol] 10.20 ug/dL Normal 4.80-13.90 [facility] Comment on above: Performed By: #### T SH, BMP #### [facility] [address] [place] [address] Dr. Tasha Dodson PROF CHEM 8 (BAS METB)on Anion gap [Moles/Vol] 13.8 mmol/L Normal [facility] Comment on above: Performed By: #### T SH, BMP #### [facility] [address] [place] [address] Dr. Tasha Dodson Calcium [Mass/Vol] 9.8 mg/dL Normal 8.5-10.1 [facility] Comment on above: Performed By: #### T SH, BMP #### [facility] [address] [place] [address] Dr. Tasha Dodson Chloride [Moles/Vol] 95 mmol/L Critically low 98-107 [facility] Comment on above: Performed By: #### T SH, BMP #### [facility] [address] [place] [address] Dr. Tasha Dodson CO2 [Moles/Vol] 30.5 mmol/L Normal 21.0-32.0 [facility] Comment on above: Performed By: #### T SH, BMP #### [facility] [address] [place] [address] Dr. Tasha Dodson Creatinine [Mass/Vol] 0.78 mg/dL Normal 0.55-1.02 [facility] Comment on above: Performed By: #### T SH, BMP #### [facility] [address] [place] [address] Dr. aTsha Dodson EGFR-AF TURKISH >60 Normal >=60 [facility] Comment on above: Performed By: #### T SH, BMP #### [facility] [address] [place] [address] Dr. Tasha Dodson EGFR-NON AF TURKISH >60 Normal >=60 [facility] Comment on above: Performed By: #### T SH, BMP #### [facility] [address] [place] [address] Dr. Tasha Dodson Glucose [Mass/Vol] 108 mg/dL Critically high 74-106 [facility] Comment on above: Performed By: #### T SH, BMP #### [facility] [address] [place] [address] Dr. Tasha Dodson Potassium [Moles/Vol] 3.3 mmol/L Critically low 3.5-5.1 [facility] Comment on above: Performed By: #### T SH, BMP #### [facility] [address] [place] [address] Dr. Tasha Dodson Sodium [Moles/Vol] 136 mmol/L Normal 136-145 [facility] Comment on above: Performed By: #### T SH, BMP #### [facility] [address] [place] [address] Dr. Tasha Dodson Urea nitrogen [Mass/Vol] 11.0 mg/dL Normal 7.0-18.0 [facility] Comment on above: Performed By: #### T SH, BMP #### [facility] [address] [place] [address] Dr. Tasha Dodson Urea nitrogen/Creatinine [Mass ratio] 14.1 mg/mg Normal [facility] Comment on above: Performed By: #### T SH, BMP #### [facility] [address] [place] [address] Dr. Tasha Dodson TSHon 06-13-2022 TSH 2.583 uIU/mL Normal 0.358-3.740 [facility] Comment on above: Performed By: #### T SH, BMP #### [facility] [address] [place] [address] Dr. Tasha Dodson UA (CLEAN/CATCH) SHOWCASE TRIMMER/MICRO I F IND.on 06-13-2022 Bilirubin Ql (U) Negative Normal NEGATIVE [facility] Comment on above: Performed By: #### T SH, BMP #### [facility] [address] [place] [address] Dr. Tasha Dodson Clarity (U) CLEAR Normal CLEAR [facility] Comment on above: Performed By: #### T SH, BMP #### [facility] [address] [place] [address] Dr. Tasha Dodson Color (U) LT. YELLOW Normal YELLOW [facility] Comment on above: Performed By: #### T SH, BMP #### [facility] [address] [place] [address] Dr. Tasha Dodson Glucose Ql (U) Negative Normal NEGATIVE [facility] Comment on above: Performed By: #### T SH, BMP #### [facility] [address] [place] [address] Dr. Tasha Dodson Hemoglobin Ql (U) Negative Normal NEGATIVE [facility] Comment on above: Performed By: #### T SH, BMP #### [facility] [address] [place] [address] Dr. Tasha Dodson Ketones Ql (U) Negative Normal NEGATIVE [facility] Comment on above: Performed By: #### T SH, BMP #### [facility] [address] [place] [address] Dr. Tasha Dodson LEUKOCYTES Negative Normal NEGATIVE [facility] Comment on above: Performed By: #### T SH, BMP #### [facility] [address] [place] [address] Dr. Tasha Dodson Nitrite Ql (U) Negative Normal NEGATIVE [facility] Comment on above: Performed By: #### T SH, BMP #### [facility] [address] [place] [address] Dr. Tasha Dodson pH (U) 7.0 [pH] Normal 5-9 [facility] Comment on above: Performed By: #### T SH, BMP #### [facility] [address] [place] [address] Dr. Tasha Dodson SPEC GRAVITY 1.010 Normal 1.005-<=1.0 25 [facility] Comment on above: Performed By: #### T SH, BMP #### [facility] [address] [place] [address] Dr. Tasha Dodson UA PROTEIN Negative Normal NEGATIVE/ TRACE [facility] Comment on above: Performed By: #### T SH, BMP #### [facility] [address] [place] [address] Dr. Tasha Dodson UR MICRO IND NOT INDICATED Normal [facility] Comment on above: Performed By: #### T SH, BMP #### [facility] [address] [place] [address] Dr. Tasha Dodson Urobilinogen Qn (U) 0.2 {Juan'U}/dL Normal 0.2 - 1. 0 [facility] Comment on above: Performed By: #### T JESI, BMP #### [facility] [address] [place] [address] Dr. Tasha Dodson ECHOCARDIO M/2D COMPLETEon 0 04-18-2022 ECHOCARDIO M/2D COMPLETE Patient: HIRAM MADRID Exam Date: 04/18/2022 : 1935 Gender:F Ordering : DR VALERIE DARDEN M.D. Admission #: [id number] Family : DR ADDY DANIELS . Order #: [id number] CLICK HERE TO VIEW EXAM ECHOCARDIOGRAM REPORT [...] Barragan M.D. on 04/19/2022 at 18:55 Normal [facility] Office Visiton 04-04-2022 Follow-up visit [id number] Hiram Madrid 1935 F Date Provider Department Center 04/04/2022 Yazmin-VALERIE DARDEN [facility] Family History Problem Relation Age of Onset Hypertension Mother Lupus Mother Coronary artery disease Mother Heart attack Mother Hypertension Father Aneurysm Father Coronary artery disease Father Hypertension Sister Lupus Sister Family Status - Relation Status Age at Mother Father Sister Level of Service:51803 MO OFFICE/OUTPATIENT ESTABLISHED MOD MDM 30-39 MIN Reason for Visit and Comments: Hyperlipidemia [182] Hypertension [058103] carotid artery stenosis [Other] 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 Tasha Dodson Basophils/100 WBC (Bld) 0.6 % Normal 0.2-2.0 [facility] Comment on above: Performed By: #### C BC #### [facility] [address] [address] [address] Tasha Dodson EO # 0.1 103/ul Normal 0.0-0.7 [facility] Comment on above: Performed By: #### C BC #### [facility] [address] [place] [address] Dr. Tasha Dodson Eosinophils/100 WBC (Bld) 0.9 % Normal 0.9-7.0 [facility] Comment on above: Performed By: #### C BC #### [facility] [address] [place] [address] Dr. Tasha Dodson Erythrocyte distribution width (RBC) [Ratio] 13.0 % Normal 11.0-15.0 [facility] Comment on above: Performed By: #### C BC #### [facility] [address] [place] [address] Dr. Tasha Dodson Hematocrit (Bld) [Volume fraction] 38.5 % Normal 36.0-48.0 [facility] Comment on above: Performed By: #### C BC #### [facility] [address] [place] [address] Dr. Tasha Dodson Hemoglobin (Bld) [Mass/Vol] 13.4 g/dL Normal 12.0-16.0 [facility] Comment on above: Performed By: #### C BC #### [facility] [address] [place] [address] Dr. Tasha Dodson IG # 0.07 10e3/ul Critically high 0.00-0.03 [facility] Comment on above: Performed By: #### C BC #### [facility] [address] [place] [address] Dr. Tasha Dodson IG % 0.5 % Normal 0.0-0.5 [facility] Comment on above: Performed By: #### C BC #### [facility] [address] [place] [address] Dr. Tasha Dodson LYMPH # 2.8 103/ul Normal 1.2-3.8 [facility] Comment on above: Performed By: #### C BC #### [facility] [address] [place] [address] Dr. Tasha Dodson Lymphocytes/100 WBC (Bld) 20.5 % Normal 20.5-60.0 [facility] Comment on above: Performed By: #### C BC #### [facility] [address] [place] [address] Dr. Tasha Dodson MANUAL DIFF REQ NO Normal [facility] Comment on above: Performed By: #### C BC #### [facility] [address] [place] [address] Dr. Tasha Dodson MCH (RBC) [Entitic mass] 30.7 pg Normal 26.7-34.0 [facility] Comment on above: Performed By: #### C BC #### [facility] [address] [place] [address] Dr. Tasha Dodson MCHC (RBC) [Mass/Vol] 34.8 g/dL Normal 29.9-35.2 [facility] Comment on above: Performed By: #### C BC #### [facility] [address] [place] [address] Dr. Tasha Dodson MCV (RBC) [Entitic vol] 88.3 fL Normal 81.0-99.0 [facility] Comment on above: Performed By: #### C BC #### [facility] [address] [place] [address] Dr. Tasha Dodson MONO # 1.0 103/ul Critically high 0.3-0.8 [facility] Comment on above: Performed By: #### C BC #### [facility] [address] [place] [address] Dr. Tasha Dodson Monocytes/100 WBC (Bld) 7.4 % Normal 1.7-12.0 [facility] Comment on above: Performed By: #### C BC #### [facility] [address] [place] [address] Dr. Tasha Dodson NEUT # 9.5 103/ul Critically high 1.4-6.5 [facility] Comment on above: Performed By: #### C BC #### [facility] [address] [place] [address] Dr. Tasha Dodson Neutrophils/100 WBC (Bld) 70.1 % Normal 43.0-75.0 [facility] Comment on above: Performed By: #### C BC #### [facility] [address] [address] [address] Tasha Dodson Platelet mean volume (Bld) [Entitic vol] 8.0 fL Critically low 9.5-13.5 [facility] Comment on above: Performed By: #### C BC #### [facility] [address] [place] [address] Dr. Tasha Dodson PLT 492 103/ul Critically high 150-450 [facility] Comment on above: Performed By: #### C BC #### [facility] [address] [place] [address] Dr. Tasha Dodson RBC 4.36 106/ul Normal 4.20-5.40 [facility] Comment on above: Performed By: #### C BC #### [facility] [address] [place] [address] Dr. Tasha Dodson WBC 13.5 103/ul Critically high 4.0-11.0 [facility] Comment on above: Performed By: #### C BC #### [facility] [address] [place] [address] Dr. Tasha Dodson PROF 14(COMP METB)on 01-04- 022 Albumin [Mass/Vol] 3.8 g/dL Normal 3.4-5.0 [facility] Comment on above: Performed By: #### T SH, BMP #### [facility] [address] [place] [address] Dr. Tasha Dodson Albumin/Globulin [Mass ratio] 0.9 {ratio} Normal [facility] Comment on above: Performed By: #### T SH, BMP #### [facility] [address] [place] [address] Dr. Tasha Dodson ALP [Catalytic activity/Vol] 60 U/L Normal 46-116 [facility] Comment on above: Performed By: #### T SH, BMP #### [facility] [address] [place] [address] Dr. Tasha Dodson ALT [Catalytic activity/Vol] 26 U/L Normal 14-59 [facility] Comment on above: Performed By: #### T SH, BMP #### [facility] [address] [address] [address] Tasha Dodson Anion gap [Moles/Vol] 8.4 mmol/L Normal [facility] Comment on above: Performed By: #### T SH, BMP #### [facility] [address] [address] [address] Tasha Dodson AST [Catalytic activity/Vol] 19 U/L Normal 15-37 [facility] Comment on above: Performed By: #### T SH, BMP #### [facility] [address] [place] [address] Dr. Tasha Dodson Bilirubin [Mass/Vol] 0.4 mg/dL Normal 0.2-1.0 [facility] Comment on above: Performed By: #### T SH, BMP #### [facility] [address] [place] [address] Dr. Tasha Dodson Calcium [Mass/Vol] 10.1 mg/dL Normal 8.5-10.1 [facility] Comment on above: Performed By: #### T SH, BMP #### [facility] [address] [place] [address] Dr. Tasha Dodson Chloride [Moles/Vol] 92 mmol/L Critically low 98-107 [facility] Comment on above: Performed By: #### T SH, BMP #### [facility] [address] [place] [address] Dr. Tasha Dodson CO2 [Moles/Vol] 33.8 mmol/L Critically high 21.0-32.0 [facility] Comment on above: Performed By: #### T SH, BMP #### [facility] [address] [place] [address] Dr. Tasha Dodson Creatinine [Mass/Vol] 0.67 mg/dL Normal 0.55-1.02 [facility] Comment on above: Performed By: #### T SH, BMP #### [facility] [address] [place] [address] Dr. Tasha Dodson EGFR-AF TURKISH >60 Normal >=60 [facility] Comment on above: Performed By: #### T SH, BMP #### [facility] [address] [address] [address] Tasha Dodson EGFR-NON AF TURKISH >60 Normal >=60 [facility] Comment on above: Performed By: #### T SH, BMP #### [facility] [address] [address] [address] Tasha Dodson Globulin (S) [Mass/Vol] 4.1 g/dL Normal [facility] Comment on above: Performed By: #### T SH, BMP #### [facility] [address] [place] [address] Dr. Tasha Dodson Glucose [Mass/Vol] 106 mg/dL Normal 74-106 [facility] Comment on above: Performed By: #### T SH, BMP #### [facility] [address] [place] [address] Dr. Tasha Dodson Potassium [Moles/Vol] 3.2 mmol/L Critically low 3.5-5.1 [facility] Comment on above: Performed By: #### T JESI, BMP #### [facility] [address] [place] [address] Dr. Tasha Dodson Protein [Mass/Vol] 7.9 g/dL Normal 6.4-8.2 [facility] Comment on above: Performed By: #### T JESI, BMP #### [facility] [address] [place] [address] Dr. Tasha Dodson Sodium [Moles/Vol] 131 mmol/L Critically low 136-145 [facility] Comment on above: Performed By: #### T SH, BMP #### [facility] [address] [place] [address] Dr. Tasha Dodson Urea nitrogen [Mass/Vol] 10.0 mg/dL Normal 7.0-18.0 [facility] Comment on above: Performed By: #### T SH, BMP #### [facility] [address] [place] [address] Dr. Tasha Dodson Urea nitrogen/Creatinine [Mass ratio] 14.9 mg/mg Normal [facility] Comment on above: Performed By: #### T JESI, BMP #### [facility] [address] [place] [address] Dr. Tasha Dodson CBC AUTO DIFFon 12-29-2021 BASO # 0.1 103/ul Normal 0.0-0.1 [facility] Comment on above: Performed By: #### C BC #### [facility] [address] [place] [address] Dr. Tasha Dodson Basophils/100 WBC (Bld) 0.5 % Normal 0.2-2.0 [facility] Comment on above: Performed By: #### C BC #### [facility] [address] [place] [address] Dr. Tasha Dodson EO # 0.1 103/ul Normal 0.0-0.7 [facility] Comment on above: Performed By: #### C BC #### [facility] [address] [place] [address] Dr. Tasha Dodson Eosinophils/100 WBC (Bld) 0.4 % Critically low 0.9-7.0 [facility] Comment on above: Performed By: #### C BC #### [facility] [address] [place] [address] Dr. Tasha Dodson Erythrocyte distribution width (RBC) [Ratio] 13.0 % Normal 11.0-15.0 [facility] Comment on above: Performed By: #### C BC #### [facility] [address] [place] [address] Dr. Tasha Dodson Hematocrit (Bld) [Volume fraction] 34.0 % Critically low 36.0-48.0 [facility] Comment on above: Performed By: #### C BC #### [facility] [address] [place] [address] Dr. Tasha Dodson Hemoglobin (Bld) [Mass/Vol] 12.0 g/dL Normal 12.0-16.0 [facility] Comment on above: Performed By: #### C BC #### [facility] [address] [place] [address] Dr. Tasha Dodson IG # 0.06 10e3/ul Critically high 0.00-0.03 [facility] Comment on above: Performed By: #### C BC #### [facility] [address] [address] [address] Tasha Dodson IG % 0.4 % Normal 0.0-0.5 [facility] Comment on above: Performed By: #### C BC #### [facility] [address] [place] [address] Dr. Tasha Dodson LYMPH # 2.5 103/ul Normal 1.2-3.8 [facility] Comment on above: Performed By: #### C BC #### [facility] [address] [place] [address] Dr. Tasha Dodson Lymphocytes/100 WBC (Bld) 17.4 % Critically low 20.5-60.0 [facility] Comment on above: Performed By: #### C BC #### [facility] [address] [place] [address] Dr. Tasha Dodson MANUAL DIFF REQ NO Normal [facility] Comment on above: Performed By: #### C BC #### [facility] [address] [place] [address] Dr. Tasha Dodson MCH (RBC) [Entitic mass] 31.0 pg Normal 26.7-34.0 [facility] Comment on above: Performed By: #### C BC #### [facility] [address] [place] [address] Dr. Tasha Dodson MCHC (RBC) [Mass/Vol] 35.3 g/dL Critically high 29.9-35.2 [facility] Comment on above: Performed By: #### C BC #### [facility] [address] [place] [address] Dr. Tasha Dodson MCV (RBC) [Entitic vol] 87.9 fL Normal 81.0-99.0 [facility] Comment on above: Performed By: #### C BC #### [facility] [address] [place] [address] Dr. Tasha Dodson MONO # 1.0 103/ul Critically high 0.3-0.8 [facility] Comment on above: Performed By: #### C BC #### [facility] [address] [address] [address] Tasha Dodson Monocytes/100 WBC (Bld) 6.9 % Normal 1.7-12.0 [facility] Comment on above: Performed By: #### C BC #### [facility] [address] [address] [address] Tasha Dodson NEUT # 10.8 103/ul Critically high 1.4-6.5 [facility] Comment on above: Performed By: #### C BC #### [facility] [address] [address] [address] Tasha Dodson Neutrophils/100 WBC (Bld) 74.4 % Normal 43.0-75.0 [facility] Comment on above: Performed By: #### C BC #### [facility] [address] [place] [address] Dr. Tasha Dodson Platelet mean volume (Bld) [Entitic vol] 8.4 fL Critically low 9.5-13.5 [facility] Comment on above: Performed By: #### C BC #### [facility] [address] [place] [address] Dr. Tasha Dodson PLT 370 103/ul Normal 150-450 [facility] Comment on above: Performed By: #### C BC #### [facility] [address] [place] [address] Dr. Tasha Dodson RBC 3.87 106/ul Critically low 4.20-5.40 [facility] Comment on above: Performed By: #### C BC #### [facility] [address] [place] [address] Dr. Tasha Dodson WBC 14.5 103/ul Critically high 4.0-11.0 [facility] Comment on above: Performed By: #### C BC #### [facility] [address] [place] [address] Dr. Tasha Dodson PROF 14(COMP METB)on 022 Albumin [Mass/Vol] 2.8 g/dL Critically low 3.4-5.0 [facility] Comment on above: Performed By: #### T SH, BMP #### [facility] [address] [place] [address] Dr. Tasha Dodson Albumin/Globulin [Mass ratio] 0.9 {ratio} Normal [facility] Comment on above: Performed By: #### T SH, BMP #### [facility] [address] [place] [address] Dr. Tasha Dodson ALP [Catalytic activity/Vol] 51 U/L Normal 46-116 [facility] Comment on above: Performed By: #### T SH, BMP #### [facility] [address] [address] [address] Tasha Dodson ALT [Catalytic activity/Vol] 15 U/L Normal 14-59 [facility] Comment on above: Performed By: #### T SH, BMP #### [facility] [address] [place] [address] Dr. Tasha Dodson Anion gap [Moles/Vol] 9.7 mmol/L Normal [facility] Comment on above: Performed By: #### T SH, BMP #### [facility] [address] [place] [address] Dr. Tasha Dodson AST [Catalytic activity/Vol] 15 U/L Normal 15-37 [facility] Comment on above: Performed By: #### T SH, BMP #### [facility] [address] [place] [address] Dr. Tasha Dodson Bilirubin [Mass/Vol] 0.4 mg/dL Normal 0.2-1.0 [facility] Comment on above: Performed By: #### T SH, BMP #### [facility] [address] [place] [address] Dr. Tasha Dodson Calcium [Mass/Vol] 8.6 mg/dL Normal 8.5-10.1 [facility] Comment on above: Performed By: #### T SH, BMP #### [facility] [address] [place] [address] Dr. Tasha Dodson Chloride [Moles/Vol] 97 mmol/L Critically low 98-107 [facility] Comment on above: Performed By: #### T SH, BMP #### [facility] [address] [address] [address] Tasha Dodson CO2 [Moles/Vol] 25.8 mmol/L Normal 21.0-32.0 [facility] Comment on above: Performed By: #### T SH, BMP #### [facility] [address] [address] [address] Tasha Dodson Creatinine [Mass/Vol] 0.52 mg/dL Critically low 0.55-1.02 [facility] Comment on above: Performed By: #### T SH, BMP #### [facility] [address] [place] [address] Dr. Tasha Dodson EGFR-AF TURKISH >60 Normal >=60 [facility] Comment on above: Performed By: #### T SH, BMP #### [facility] [address] [place] [address] Dr. Tasha Dodson EGFR-NON AF TURKISH >60 Normal >=60 [facility] Comment on above: Performed By: #### T SH, BMP #### [facility] [address] [place] [address] Dr. Tasha Dodson Globulin (S) [Mass/Vol] 3.2 g/dL Normal [facility] Comment on above: Performed By: #### T SH, BMP #### [facility] [address] [place] [address] Dr. Tasha Dodson Glucose [Mass/Vol] 117 mg/dL Critically high 74-106 [facility] Comment on above: Performed By: #### T SH, BMP #### [facility] [address] [place] [address] Dr. Tasha Dodson Potassium [Moles/Vol] 3.5 mmol/L Normal 3.5-5.1 [facility] Comment on above: Performed By: #### T SH, BMP #### [facility] [address] [place] [address] Dr. Tasha Dodson Protein [Mass/Vol] 6.0 g/dL Critically low 6.4-8.2 [facility] Comment on above: Performed By: #### T SH, BMP #### [facility] [address] [place] [address] Dr. Tasha Dodson Sodium [Moles/Vol] 129 mmol/L Critically low 136-145 [facility] Comment on above: Performed By: #### T JESI, BMP #### [facility] [address] [place] [address] Dr. Tasha Dodson Urea nitrogen [Mass/Vol] 4.0 mg/dL Critically low 7.0-18.0 [facility] Comment on above: Performed By: #### T JESI, BMP #### [facility] [address] [place] [address] Dr. Tasha Dodson Urea nitrogen/Creatinine [Mass ratio] 7.7 mg/mg Normal [facility] Comment on above: Performed By: #### T JESI, BMP #### [facility] [address] [place] [address] Dr. Tasha Dodson CBC AUTO DIFFon 12-28-2021 BASO # 0.1 103/ul Normal 0.0-0.1 [facility] Comment on above: Performed By: #### C BC #### [facility] [address] [place] [address] Dr. Tasha Dodson Basophils/100 WBC (Bld) 0.4 % Normal 0.2-2.0 [facility] Comment on above: Performed By: #### C BC #### [facility] [address] [place] [address] Dr. Tasha Dodson EO # 0.1 103/ul Normal 0.0-0.7 [facility] Comment on above: Performed By: #### C BC #### [facility] [address] [place] [address] Dr. Tasha Dodson Eosinophils/100 WBC (Bld) 0.4 % Critically low 0.9-7.0 [facility] Comment on above: Performed By: #### C BC #### [facility] [address] [place] [address] Dr. Tasha Dodson Erythrocyte distribution width (RBC) [Ratio] 12.9 % Normal 11.0-15.0 [facility] Comment on above: Performed By: #### C BC #### [facility] [address] [place] [address] Dr. Tasha Dodson Hematocrit (Bld) [Volume fraction] 34.2 % Critically low 36.0-48.0 [facility] Comment on above: Performed By: #### C BC #### [facility] [address] [place] [address] Dr. Tasha Dodson Hemoglobin (Bld) [Mass/Vol] 12.4 g/dL Normal 12.0-16.0 [facility] Comment on above: Performed By: #### C BC #### [facility] [address] [place] [address] Dr. Tasha Dodson IG # 0.09 10e3/ul Critically high 0.00-0.03 [facility] Comment on above: Performed By: #### C BC #### [facility] [address] [place] [address] Dr. Tasha Dodson IG % 0.6 % Critically high 0.0-0.5 [facility] Comment on above: Performed By: #### C BC #### [facility] [address] [place] [address] Dr. Tasha Dodson LYMPH # 2.2 103/ul Normal 1.2-3.8 [facility] Comment on above: Performed By: #### C BC #### [facility] [address] [place] [address] Dr. Tasha Dodson Lymphocytes/100 WBC (Bld) 13.6 % Critically low 20.5-60.0 [facility] Comment on above: Performed By: #### C BC #### [facility] [address] [place] [address] Dr. Tasha Dodson MANUAL DIFF REQ NO Normal [facility] Comment on above: Performed By: #### C BC #### [facility] [address] [place] [address] Dr. Tasha Dodson MCH (RBC) [Entitic mass] 31.2 pg Normal 26.7-34.0 [facility] Comment on above: Performed By: #### C BC #### [facility] [address] [address] [address] Tasha Dodson MCHC (RBC) [Mass/Vol] 36.3 g/dL Critically high 29.9-35.2 [facility] Comment on above: Performed By: #### C BC #### [facility] [address] [address] [address] Tasha Dodson MCV (RBC) [Entitic vol] 85.9 fL Normal 81.0-99.0 [facility] Comment on above: Performed By: #### C BC #### [facility] [address] [address] [address] Tasha Dodson MONO # 1.3 103/ul Critically high 0.3-0.8 [facility] Comment on above: Performed By: #### C BC #### [facility] [address] [place] [address] Dr. Tasha Dodson Monocytes/100 WBC (Bld) 7.8 % Normal 1.7-12.0 [facility] Comment on above: Performed By: #### C BC #### [facility] [address] [address] [address] Tasha Dodson NEUT # 12.4 103/ul Critically high 1.4-6.5 [facility] Comment on above: Performed By: #### C BC #### [facility] [address] [place] [address] Dr. Tasha Dodson Neutrophils/100 WBC (Bld) 77.2 % Critically high 43.0-75.0 [facility] Comment on above: Performed By: #### C BC #### [facility] [address] [address] [address] Tasha Dodson Platelet mean volume (Bld) [Entitic vol] 8.6 fL Critically low 9.5-13.5 [facility] Comment on above: Performed By: #### C BC #### [facility] [address] [place] [address] Dr. Tasha Dodson PLT 385 103/ul Normal 150-450 [facility] Comment on above: Performed By: #### C BC #### [facility] [address] [address] [address] Tasha Dodson RBC 3.98 106/ul Critically low 4.20-5.40 [facility] Comment on above: Performed By: #### C BC #### [facility] [address] [address] [address] Tasha Dodson WBC 16.1 103/ul Critically high 4.0-11.0 [facility] Comment on above: Performed By: #### C BC #### [facility] [address] [place] [address] Dr. Tasha Dodson PROF 14(COMP METB)on 022 Albumin [Mass/Vol] 3.2 g/dL Critically low 3.4-5.0 [facility] Comment on above: Performed By: #### T SH, BMP #### [facility] [address] [place] [address] Dr. Tasha Dodson Albumin/Globulin [Mass ratio] 1.0 {ratio} Normal [facility] Comment on above: Performed By: #### T SH, BMP #### [facility] [address] [place] [address] Dr. Tasha Dodson ALP [Catalytic activity/Vol] 51 U/L Normal 46-116 [facility] Comment on above: Performed By: #### T SH, BMP #### [facility] [address] [place] [address] Dr. Tasha Dodson ALT [Catalytic activity/Vol] 17 U/L Normal 14-59 [facility] Comment on above: Performed By: #### T SH, BMP #### [facility] [address] [place] [address] Dr. Tasha Dodson Anion gap [Moles/Vol] 10.5 mmol/L Normal [facility] Comment on above: Performed By: #### T SH, BMP #### [facility] [address] [place] [address] Dr. Tasha Dodson AST [Catalytic activity/Vol] 18 U/L Normal 15-37 [facility] Comment on above: Performed By: #### T SH, BMP #### [facility] [address] [address] [address] Tasha Dodson Bilirubin [Mass/Vol] 0.4 mg/dL Normal 0.2-1.0 [facility] Comment on above: Performed By: #### T SH, BMP #### [facility] [address] [place] [address] Dr. Tasha Dodson Calcium [Mass/Vol] 8.3 mg/dL Critically low 8.5-10.1 [facility] Comment on above: Performed By: #### T SH, BMP #### [facility] [address] [place] [address] Dr. Tasha Dodson Chloride [Moles/Vol] 96 mmol/L Critically low 98-107 [facility] Comment on above: Performed By: #### T SH, BMP #### [facility] [address] [place] [address] Dr. Tasha Dodson CO2 [Moles/Vol] 24.5 mmol/L Normal 21.0-32.0 [facility] Comment on above: Performed By: #### T SH, BMP #### [facility] [address] [place] [address] Dr. Tasha Dodson Creatinine [Mass/Vol] 0.54 mg/dL Critically low 0.55-1.02 [facility] Comment on above: Performed By: #### T SH, BMP #### [facility] [address] [place] [address] Dr. Tasha Dodson EGFR-AF TURKISH >60 Normal >=60 [facility] Comment on above: Performed By: #### T SH, BMP #### [facility] [address] [place] [address] Dr. Tasha Dodson EGFR-NON AF TURKISH >60 Normal >=60 [facility] Comment on above: Performed By: #### T SH, BMP #### [facility] [address] [place] [address] Dr. Tasha Dodson Globulin (S) [Mass/Vol] 3.1 g/dL Normal T [facility] Comment on above: Performed By: #### T SH, BMP #### [facility] [address] [place] [address] Dr. Tasha Dodson Glucose [Mass/Vol] 123 mg/dL Critically high 74-106 [facility] Comment on above: Performed By: #### T , BMP #### [facility] [address] [place] [address] Dr. Tasha Dodson Potassium [Moles/Vol] 3.0 mmol/L Critically low 3.5-5.1 [facility] Comment on above: Performed By: #### T , BMP #### [facility] [address] [place] [address] Dr. Tasha Dodson Protein [Mass/Vol] 6.3 g/dL Critically low 6.4-8.2 [facility] Comment on above: Performed By: #### T , BMP #### [facility] [address] [place] [address] Dr. Tasha Dodson Sodium [Moles/Vol] 128 mmol/L Critically low 136-145 [facility] Comment on above: Performed By: #### T , BMP #### [facility] [address] [place] [address] Dr. Tasha Dodson Urea nitrogen [Mass/Vol] 5.0 mg/dL Critically low 7.0-18.0 [facility] Comment on above: Performed By: #### T , BMP #### [facility] [address] [place] [address] Dr. Tasha Dodson Urea nitrogen/Creatinine [Mass ratio] 9.3 mg/mg Normal [facility] Comment on above: Performed By: #### T , BMP #### [facility] [address] [place] [address] Dr. Tasha Dodson SODIUM RANDOM URINEon 2021 Sodium (U) [Moles/Vol] 135 mmol/L Critically high 30-90 [facility] Comment on above: Performed By: #### C BC #### [facility] [address] [place] [address] Dr. Tasha Dodson CBC AUTO DIFFon 12-27-2021 BASO # 0.0 103/ul Normal 0.0-0.1 [facility] Comment on above: Performed By: #### C BC #### [facility] [address] [place] [address] Dr. Tasha Dodson Basophils/100 WBC (Bld) 0.2 % Normal 0.2-2.0 [facility] Comment on above: Performed By: #### C BC #### [facility] [address] [place] [address] Dr. Tasha Dodson EO # 0.3 103/ul Normal 0.0-0.7 [facility] Comment on above: Performed By: #### C BC #### [facility] [address] [place] [address] Dr. Tasha Dodson Eosinophils/100 WBC (Bld) 2.3 % Normal 0.9-7.0 [facility] Comment on above: Performed By: #### C BC #### [facility] [address] [place] [address] Dr. Tasha Dodson Erythrocyte distribution width (RBC) [Ratio] 12.4 % Normal 11.0-15.0 [facility] Comment on above: Performed By: #### C BC #### [facility] [address] [place] [address] Dr. Tasha Dodson Hematocrit (Bld) [Volume fraction] 35.4 % Critically low 36.0-48.0 [facility] Comment on above: Performed By: #### C BC #### [facility] [address] [place] [address] Dr. Tasha Dodson Hemoglobin (Bld) [Mass/Vol] 12.9 g/dL Normal 12.0-16.0 [facility] Comment on above: Performed By: #### C BC #### [facility] [address] [place] [address] Dr. Tasha Dodson IG # 0.06 10e3/ul Critically high 0.00-0.03 [facility] Comment on above: Performed By: #### C BC #### [facility] [address] [place] [address] Dr. Tasha Dodson IG % 0.5 % Normal 0.0-0.5 [facility] Comment on above: Performed By: #### C BC #### [facility] [address] [address] [address] Tasha Dodson LYMPH # 2.0 103/ul Normal 1.2-3.8 [facility] Comment on above: Performed By: #### C BC #### [facility] [address] [address] [address] Tasha Dodson Lymphocytes/100 WBC (Bld) 15.7 % Critically low 20.5-60.0 [facility] Comment on above: Performed By: #### C BC #### [facility] [address] [place] [address] Dr. Tasha Dodson MANUAL DIFF REQ NO Normal [facility] Comment on above: Performed By: #### C BC #### [facility] [address] [place] [address] Dr. Tasha Dodson MCH (RBC) [Entitic mass] 31.0 pg Normal 26.7-34.0 [facility] Comment on above: Performed By: #### C BC #### [facility] [address] [place] [address] Dr. Tasha Dodson MCHC (RBC) [Mass/Vol] 36.4 g/dL Critically high 29.9-35.2 [facility] Comment on above: Performed By: #### C BC #### [facility] [address] [place] [address] Dr. Tasha Dodson MCV (RBC) [Entitic vol] 85.1 fL Normal 81.0-99.0 [facility] Comment on above: Performed By: #### C BC #### [facility] [address] [place] [address] Dr. Tasha Dodson MONO # 1.1 103/ul Critically high 0.3-0.8 [facility] Comment on above: Performed By: #### C BC #### [facility] [address] [place] [address] Dr. Tasha Dodson Monocytes/100 WBC (Bld) 8.3 % Normal 1.7-12.0 [facility] Comment on above: Performed By: #### C BC #### [facility] [address] [address] [address] Tasha Dodson NEUT # 9.5 103/ul Critically high 1.4-6.5 [facility] Comment on above: Performed By: #### C BC #### [facility] [address] [id number] [address] Tasha Dodson Neutrophils/100 WBC (Bld) 73.0 % Normal 43.0-75.0 [facility] Comment on above: Performed By: #### C BC #### [facility] [address] [address] [address] Tasha Dodson Platelet mean volume (Bld) [Entitic vol] 8.3 fL Critically low 9.5-13.5 [facility] Comment on above: Performed By: #### C BC #### [facility] [address] [address] [address] Tasha Dodson PLT 408 103/ul Normal 150-450 [facility] Comment on above: Performed By: #### C BC #### [facility] [address] [address] [address] Tasha Dodson RBC 4.16 106/ul Critically low 4.20-5.40 [facility] Comment on above: Performed By: #### C BC #### [facility] [address] [id number] [address] Tasha Dodson WBC 13.0 103/ul Critically high 4.0-11.0 [facility] Comment on above: Performed By: #### C BC #### [facility] [address] [id number] Tasha Dodson CULTURE SPUTUMon 12-27-2021 CULTURE SPUTUM Culture Observations : NORMAL RESPIRATORY AMADOU. Normal [facility] Comment on above: Performed By: #### C BC #### [facility] [address] [address] [address] Tasha Dodson PROF 14(COMP METB)on 022 Albumin [Mass/Vol] 3.4 g/dL Normal 3.4-5.0 [facility] Comment on above: Performed By: #### C MADM, LIPA, BNP, CMP #### [facility] [address] [place] [address] Dr. Tasha Dodson Albumin/Globulin [Mass ratio] 1.0 {ratio} Normal [facility] Comment on above: Performed By: #### C MADM, LIPA, BNP, CMP #### [facility] [address] [place] [address] Dr. Tasha Dodson ALP [Catalytic activity/Vol] 54 U/L Normal 46-116 [facility] Comment on above: Performed By: #### C MADM, LIPA, BNP, CMP #### [facility] [address] [place] [address] Dr. Tasha Dodson ALT [Catalytic activity/Vol] 20 U/L Normal 14-59 [facility] Comment on above: Performed By: #### C MADM, LIPA, BNP, CMP #### [facility] [address] [place] [address] Dr. Tasha Dodson Anion gap [Moles/Vol] 10.8 mmol/L Normal [facility] Comment on above: Performed By: #### C MADM, LIPA, BNP, CMP #### [facility] [address] [place] [address] Dr. Tasha Dodson AST [Catalytic activity/Vol] 19 U/L Normal 15-37 [facility] Comment on above: Performed By: #### C MADM, LIPA, BNP, CMP #### [facility] [address] [place] [address] Dr. Tasha Dodson Bilirubin [Mass/Vol] 0.5 mg/dL Normal 0.2-1.0 [facility] Comment on above: Performed By: #### C MADM, LIPA, BNP, CMP #### [facility] [address] [place] [address] Dr. Tasha Dodson Calcium [Mass/Vol] 8.3 mg/dL Critically low 8.5-10.1 [facility] Comment on above: Performed By: #### C MADM, LIPA, BNP, CMP #### [facility] [address] [address] [address] Tasha Dodson Chloride [Moles/Vol] 89 mmol/L Critically low 98-107 [facility] Comment on above: Performed By: #### C MADM, LIPA, BNP, CMP #### [facility] [address] [place] [address] Dr. Tasha Dodson CO2 [Moles/Vol] 27.0 mmol/L Normal 21.0-32.0 [facility] Comment on above: Performed By: #### C MADM, LIPA, BNP, CMP #### [facility] [address] [address] [address] Tasha Dodson Creatinine [Mass/Vol] 0.69 mg/dL Normal 0.55-1.02 [facility] Comment on above: Performed By: #### C MADM, LIPA, BNP, CMP #### [facility] [address] [place] [address] Dr. Tasha Dodson EGFR-AF TURKISH >60 Normal >=60 [facility] Comment on above: Performed By: #### C MADM, LIPA, BNP, CMP #### [facility] [address] [place] [address] Dr. Tasha Dodson EGFR-NON AF TURKISH >60 Normal >=60 [facility] Comment on above: Performed By: #### C MADM, LIPA, BNP, CMP #### [facility] [address] [address] [address] Tasha Dodson Globulin (S) [Mass/Vol] 3.3 g/dL Normal [facility] Comment on above: Performed By: #### C MADM, LIPA, BNP, CMP #### [facility] [address] [place] [address] Dr. Tasha Dodson Glucose [Mass/Vol] 115 mg/dL Critically high 74-106 [facility] Comment on above: Performed By: #### C MADM, LIPA, BNP, CMP #### [facility] [address] [place] [address] Dr. Tasha Dodson Potassium [Moles/Vol] 2.7 mmol/L Critically low 3.5-5.1 [facility] Comment on above: Result Comment: Test Repeated. Critical Value Verified Performed By: #### C MADM, LIPA, BNP, CMP #### [facility] [address] [address] [address] Tasha Dodson Protein [Mass/Vol] 6.7 g/dL Normal 6.4-8.2 [facility] Comment on above: Performed By: #### C MADM, LIPA, BNP, CMP #### [facility] [address] [address] [address] Tasha Dodson Sodium [Moles/Vol] 123 mmol/L Critically low 136-145 [facility] Comment on above: Result Comment: Test Repeated. Critical Value Verified Performed By: #### C MADM, LIPA, BNP, CMP #### [facility] [address] [address] [address] Tasha Dodson Urea nitrogen [Mass/Vol] 6.0 mg/dL Critically low 7.0-18.0 [facility] Comment on above: Performed By: #### C MADM, LIPA, BNP, CMP #### [facility] [address] [place] [address] Dr. Tasha Dodson Urea nitrogen/Creatinine [Mass ratio] 8.7 mg/mg Normal [facility] Comment on above: Performed By: #### C MADM, LIPA, BNP, CMP #### [facility] [address] [address] [address] Tasha Dodson SPUTUM GRAM STAINon 12-28-19 COMMENTS Normal [facility] Comment on above: Performed By: #### T SH, BMP #### [facility] [address] [address] [address] Tasha Dodson DIPHTHEROIDS Normal [facility] Comment on above: Performed By: #### T SH, BMP #### [facility] [address] [place] [address] Dr. Tasha Dodson EPITHELIALS <25 Normal [facility] Comment on above: Performed By: #### T SH, BMP #### [facility] [address] [address] [address] Tasha Dodson FUNGAL ELEMENTS Normal [facility] Comment on above: Performed By: #### T SH, BMP #### [facility] [address] [address] [address] Tasha Dodson GRAM NEG BACILLI Normal [facility] Comment on above: Performed By: #### T SH, BMP #### [facility] [address] [address] [address] Tasha Dodson GRAM NEG DIPPLOCOCCI Normal [facility] Comment on above: Performed By: #### T SH, BMP #### [facility] [address] [address] [address] Tasha Dodson GRAM POS BACILLI Normal [facility] Comment on above: Performed By: #### T SH, BMP #### [facility] [address] [place] [address] Dr. Tasha Dodson GRAM POSITIVE COCCI MODERATE Normal [facility] Comment on above: Performed By: #### T SH, BMP #### [facility] [address] [place] [address] Dr. Tasha Dodson WBC (Bld) [#/Vol] 10*3/uL Normal [facility] Comment on above: Performed By: #### T SH, BMP #### [facility] [address] [place] [address] Dr. Tasha Dodson BNPon 12-26-2021 Natriuretic peptide B (Bld) [Mass/Vol] 148.0 pg/mL Normal <=1,800.0 [facility] Comment on above: Performed By: #### C MADM, LIPA, BNP, CMP #### [facility] [address] [place] [address] Dr. Tasha Dodson CARDIAC ANGELO ADMITon 022 CK [Catalytic activity/Vol] 139 U/L Normal 26-192 [facility] Comment on above: Performed By: #### C MADM, LIPA, BNP, CMP #### [facility] [address] [place] [address] Dr. Tasha Dodson CK.MB [Mass/Vol] 2.43 ng/mL Normal <=3.60 [facility] Comment on above: Performed By: #### C MADM, LIPA, BNP, CMP #### [facility] [address] [address] [address] Tasha Dodson HSTROP 12.2 pg/mL Normal 4.0-51.3 [facility] Comment on above: Result Comment: CUT- OFF POINTS HAVE BEEN ESTABLISHED BASED ON THE FOURTH UNIVERSAL DEFINITIONS OF MYOCARDIAL INFARCTION. THE UPPER REFERENCE LIMIT (URL) OF TROPONIN, DEFINED THE 99TH PERCENTILE OF cTnI DISTRIBUTION IN A REFERENCE POPULATION, HAS BEEN CONFIRMED THE DECISION THRESHOLD FOR [place] DIAGNOSIS. Performed By: #### C MADM, LIPA, BNP, CMP #### [facility] [address] [place] [address] Dr. Tasha Dodson ELIZABETH 110 ng/mL Critically high 9-82 [facility] Comment on above: Performed By: #### C MADM, LIPA, BNP, CMP #### [facility] [address] [place] [address] Dr. Tasha Dodson CBC AUTO DIFFon 12-26-2021 BASO # 0.0 103/ul Normal 0.0-0.1 [facility] Comment on above: Performed By: #### C MADM, LIPA, BNP, CMP #### [facility] [address] [place] [address] Dr. Tasha Dodson Basophils/100 WBC (Bld) 0.3 % Normal 0.2-2.0 [facility] Comment on above: Performed By: #### C MADM, LIPA, BNP, CMP #### [facility] [address] [place] [address] Dr. Tasha Dodson EO # 0.1 103/ul Normal 0.0-0.7 [facility] Comment on above: Performed By: #### C MADM, LIPA, BNP, CMP #### [facility] [address] [place] [address] Dr. Tasha Dodson Eosinophils/100 WBC (Bld) 0.7 % Critically low 0.9-7.0 [facility] Comment on above: Performed By: #### C MADM, LIPA, BNP, CMP #### [facility] [address] [place] [address] Dr. Tasha Dodson Erythrocyte distribution width (RBC) [Ratio] 12.4 % Normal 11.0-15.0 [facility] Comment on above: Performed By: #### C MADM, LIPA, BNP, CMP #### [facility] [address] [place] [address] Dr. Tasha Dodson Hematocrit (Bld) [Volume fraction] 38.9 % Normal 36.0-48.0 [facility] Comment on above: Performed By: #### C MADM, LIPA, BNP, CMP #### [facility] [address] [place] [address] Dr. Tasha Dodson Hemoglobin (Bld) [Mass/Vol] 14.4 g/dL Normal 12.0-16.0 [facility] Comment on above: Performed By: #### C MADM, LIPA, BNP, CMP #### [facility] [address] [place] [address] Dr. Tasha Dodson IG # 0.08 10e3/ul Critically high 0.00-0.03 [facility] Comment on above: Performed By: #### C MADM, LIPA, BNP, CMP #### [facility] [address] [place] [address] Dr. Tasha Dodson IG % 0.5 % Normal 0.0-0.5 [facility] Comment on above: Performed By: #### C MADM, LIPA, BNP, CMP #### [facility] [address] [place] [address] Dr. Tasha Dodson LYMPH # 2.2 103/ul Normal 1.2-3.8 [facility] Comment on above: Performed By: #### C MADM, LIPA, BNP, CMP #### [facility] [address] [place] [address] Dr. Tasha Dodson Lymphocytes/100 WBC (Bld) 15.0 % Critically low 20.5-60.0 [facility] Comment on above: Performed By: #### C MADM, LIPA, BNP, CMP #### [facility] [address] [place] [address] Dr. Tasha Dodson MANUAL DIFF REQ NO Normal [facility] Comment on above: Performed By: #### C MADM, LIPA, BNP, CMP #### [facility] Laboratory [address] [place] [address] Dr. Tasha Dodson MCH (RBC) [Entitic mass] 31.6 pg Normal 26.7-34.0 [facility] Comment on above: Performed By: #### C MADM, LIPA, BNP, CMP #### [facility] [address] [place] [address] Dr. Tasha Dodson MCHC (RBC) [Mass/Vol] 37.0 g/dL Critically high 29.9-35.2 [facility] Comment on above: Performed By: #### C MADM, LIPA, BNP, CMP #### [facility] [address] [place] [address] Dr. Tasha Dodson MCV (RBC) [Entitic vol] 85.3 fL Normal 81.0-99.0 [facility] Comment on above: Performed By: #### C MADM, LIPA, BNP, CMP #### [facility] [address] [place] [address] Dr. Tasha Dodson MONO # 1.0 103/ul Critically high 0.3-0.8 [facility] Comment on above: Performed By: #### C MADM, LIPA, BNP, CMP #### [facility] [address] [place] [address] Dr. Tasha Dodson Monocytes/100 WBC (Bld) 6.8 % Normal 1.7-12.0 [facility] Comment on above: Performed By: #### C MADM, LIPA, BNP, CMP #### [facility] [address] [place] [address] Dr. Tasha Dodson NEUT # 11.5 103/ul Critically high 1.4-6.5 [facility] Comment on above: Performed By: #### C MADM, LIPA, BNP, CMP #### [facility] [address] [place] [address] Dr. Tasha Dodson Neutrophils/100 WBC (Bld) 76.7 % Critically high 43.0-75.0 [facility] Comment on above: Performed By: #### C MADM, LIPA, BNP, CMP #### [facility] [address] [place] [address] Dr. Tasha Dodson Platelet mean volume (Bld) [Entitic vol] 8.6 fL Critically low 9.5-13.5 [facility] Comment on above: Performed By: #### C MADM, LIPA, BNP, CMP #### [facility] [address] [place] [address] Dr. Tasha Dodson PLT 491 103/ul Critically high 150-450 [facility] Comment on above: Performed By: #### C MADM, LIPA, BNP, CMP #### [facility] [address] [place] [address] Dr. Tasha Dodson RBC 4.56 106/ul Normal 4.20-5.40 [facility] Comment on above: Performed By: #### C MADM, LIPA, BNP, CMP #### [facility] [address] [place] [address] Dr. Tasha Dodson WBC 15.0 103/ul Critically high 4.0-11.0 [facility] Comment on above: Performed By: #### C MADM, LIPA, BNP, CMP #### [facility] [address] [place] [address] Dr. Tasha Dodson CULTURE URINEon 12-26-2021 CULTURE URINE Culture Observations : LIGHT GROWTH OF MIXED GENITAL AMADOU. NO POTENTIAL PATHOGENS SEEN. Normal [facility] Comment on above: Performed By: #### C BC #### [facility] [address] [place] [address] Dr. Tasha Dodson [facility]on SARS-CoV-2 (COVID-19) RNA CARITO+probe Ql (Unsp spec) Not detected Normal NOT DETECTED [facility] Comment on above: Result Comment: When [...] for this test is supported by the [place] of Health and Human Service's declaration that [...] #### C MADM, LIPA, BNP, CMP #### [facility] [address] [place] [address] Dr. Tasha Dodson ER URINE PROFILEon 2 Bilirubin Ql (U) Negative Normal NEGATIVE [facility] Comment on above: Performed By: #### T SH, BMP #### [facility] [address] [place] [address] Dr. Tasha Dodson Clarity (U) CLEAR Normal CLEAR [facility] Comment on above: Performed By: #### T SH, BMP #### [facility] [address] [place] [address] Dr. Tasha Dodson Color (U) LT. YELLOW Normal YELLOW [facility] Comment on above: Performed By: #### T SH, BMP #### [facility] [address] [place] [address] Dr. Tasha Dodson ERUAHD A micrscopic examination will be performed if indicated. Normal [facility] Comment on above: Performed By: #### T SH, BMP #### [facility] [address] [place] [address] Dr. Tasha Dodson Glucose Ql (U) Negative Normal NEGATIVE [facility] Comment on above: Performed By: #### T SH, BMP #### [facility] [address] [place] [address] Dr. Tasha Dodson Hemoglobin Ql (U) TRACE-INTACT Abnormal NEGATIVE [facility] Comment on above: Performed By: #### T SH, BMP #### [facility] [address] [place] [address] Dr. Tasha Dodson Ketones Ql (U) TRACE Abnormal NEGATIVE [facility] Comment on above: Performed By: #### T SH, BMP #### [facility] [address] [place] [address] Dr. Tasha Dodson LEUKOCYTES Negative Normal NEGATIVE [facility] Comment on above: Performed By: #### T SH, BMP #### [facility] [address] [place] [address] Dr. Tasha Dodson Nitrite Ql (U) Negative Normal NEGATIVE [facility] Comment on above: Performed By: #### T SH, BMP #### [facility] [address] [place] [address] Dr. Tasha Dodson pH (U) 7.0 [pH] Normal 5-9 [facility] Comment on above: Performed By: #### T SH, BMP #### [facility] [address] [place] [address] Dr. Tasha Dodson SPEC GRAVITY 1.010 Normal 1.005-<=1.0 25 [facility] Comment on above: Performed By: #### T SH, BMP #### [facility] [address] [place] [address] Dr. Tasha Dodson UA PROTEIN Negative Normal NEGATIVE/ TRACE [facility] Comment on above: Performed By: #### T SH, BMP #### [facility] [address] [place] [address] Dr. Tasha Dodson UR MICRO IND INDICATED Normal [facility] Comment on above: Performed By: #### T SH, BMP #### [facility] [address] [place] [address] Dr. Tasha Dodson Urobilinogen Qn (U) 0.2 {Juan'U}/dL Normal 0.2 - 1. 0 [facility] Comment on above: Performed By: #### T SH, BMP #### [facility] [address] [place] [address] Dr. Tasha Dodson INFLUENZA A AND B AGon 12-26 INFLUANEGH SEE BELOW Normal [facility] Comment on above: Result Comment: Nega tive for Flu A protein angiten. Infection due to Flu A cannot be ruled out. Flu A angiten in the sample may be below the detection limit of the test. Performed By: #### C BC #### [facility] [address] [place] [address] Dr. Tasha Dodson INFLUBNEGH SEE BELOW Normal [facility] Comment on above: Result Comment: Nega tive for Flu B protein antigen. Infection due to Flu B cannot be ruled out. Flu B antigen in the sample may be below the detection limit of the test. Performed By: #### C BC #### [facility] [address] [place] [address] Dr. Tasha Dodson INFLUENZA A AG Negative Normal NEGATIVE SEE COMMENT [facility] Comment on above: Performed By: #### C BC #### [facility] [address] [place] [address] Dr. Tasha Dodson INFLUENZA B AG Negative Normal NEGATIVE SEE COMMENT [facility] Comment on above: Performed By: #### C BC #### [facility] [address] [place] [address] Dr. Tasha Dodson INTERNAL CONTROLS Within Normal Limits Normal Wi thin Normal Limits [facility] Comment on above: Performed By: #### C BC #### [facility] [address] [place] [address] Dr. Tasha Dodson LACTATE/LACTIC ACIDon 2021 Lactate [Moles/Vol] 1.5 mmol/L Normal 0.4-1.9 [facility] Comment on above: Performed By: #### T SH, BMP #### [facility] [address] [place] [address] Dr. Tasha Dodson LIPASEon 12-26-2021 Lipase [Catalytic activity/Vol] 96.0 U/L Normal 73.0-393.0 [facility] Comment on above: Performed By: #### C MADM, LIPA, BNP, CMP #### [facility] [address] [place] [address] Dr. Tasha Dodson PROF 14(COMP METB)on 022 Albumin [Mass/Vol] 4.2 g/dL Normal 3.4-5.0 [facility] Comment on above: Performed By: #### C MADM, LIPA, BNP, CMP #### [facility] [address] [place] [address] Dr. Tasha Dodson Albumin/Globulin [Mass ratio] 1.1 {ratio} Normal [facility] Comment on above: Performed By: #### C MADM, LIPA, BNP, CMP #### [facility] [address] [place] [address] Dr. Tasha Dodson ALP [Catalytic activity/Vol] 68 U/L Normal 46-116 [facility] Comment on above: Performed By: #### C MADM, LIPA, BNP, CMP #### [facility] [address] [place] [address] Dr. Tasha Dodson ALT [Catalytic activity/Vol] 23 U/L Normal 14-59 [facility] Comment on above: Performed By: #### C MADM, LIPA, BNP, CMP #### [facility] [address] [place] [address] Dr. Tasha Dodson Anion gap [Moles/Vol] 12.3 mmol/L Normal [facility] Comment on above: Performed By: #### C MADM, LIPA, BNP, CMP #### [facility] [address] [place] [address] Dr. Tasha Dodson AST [Catalytic activity/Vol] 25 U/L Normal 15-37 [facility] Comment on above: Performed By: #### C MADM, LIPA, BNP, CMP #### [facility] [address] [place] [address] Dr. Tasha Dodson Bilirubin [Mass/Vol] 0.7 mg/dL Normal 0.2-1.0 [facility] Comment on above: Performed By: #### C MADM, LIPA, BNP, CMP #### [facility] [address] [place] [address] Dr. Tasha Dodson Calcium [Mass/Vol] 9.5 mg/dL Normal 8.5-10.1 [facility] Comment on above: Performed By: #### C MADM, LIPA, BNP, CMP #### [facility] [address] [address] [address] Tasha Dodson Chloride [Moles/Vol] 80 mmol/L Critically low 98-107 [facility] Comment on above: Performed By: #### C MADM, LIPA, BNP, CMP #### [facility] [address] [address] [address] Tasha Dodson CO2 [Moles/Vol] 27.1 mmol/L Normal 21.0-32.0 [facility] Comment on above: Performed By: #### C MADM, LIPA, BNP, CMP #### [facility] [address] [place] [address] Dr. Tasha Dodson Creatinine [Mass/Vol] 0.85 mg/dL Normal 0.55-1.02 [facility] Comment on above: Performed By: #### C MADM, LIPA, BNP, CMP #### [facility] [address] [place] [address] Dr. Tasha Dodson EGFR-AF TURKISH >60 Normal >=60 [facility] Comment on above: Performed By: #### C MADM, LIPA, BNP, CMP #### [facility] [address] [place] [address] Dr. Tasha Dodson EGFR-NON AF TURKISH >60 Normal >=60 [facility] Comment on above: Performed By: #### C MADM, LIPA, BNP, CMP #### [facility] [address] [place] [address] Dr. Tasha Dodson Globulin (S) [Mass/Vol] 3.9 g/dL Normal [facility] Comment on above: Performed By: #### C MADM, LIPA, BNP, CMP #### [facility] [address] [place] [address] Dr. Tasha Dodson Glucose [Mass/Vol] 132 mg/dL Critically high 74-106 [facility] Comment on above: Performed By: #### C MADM, LIPA, BNP, CMP #### [facility] [address] [address] [address] Tasha Dodson Potassium [Moles/Vol] 2.4 mmol/L Critically low 3.5-5.1 [facility] Comment on above: Performed By: #### C MADM, LIPA, BNP, CMP #### [facility] [address] [place] [address] Dr. Tasha Dodson Protein [Mass/Vol] 8.1 g/dL Normal 6.4-8.2 [facility] Comment on above: Performed By: #### C MADM, LIPA, BNP, CMP #### [facility] [address] [place] [address] Dr. Tasha Dodson Sodium [Moles/Vol] 116 mmol/L Critically low 136-145 [facility] Comment on above: Performed By: #### C MADM, LIPA, BNP, CMP #### [facility] [address] [place] [address] Dr. Tasha Dodson Urea nitrogen [Mass/Vol] 12.0 mg/dL Normal 7.0-18.0 [facility] Comment on above: Performed By: #### C MADM, LIPA, BNP, CMP #### [facility] [address] [place] [address] Dr. Tasha Dodson Urea nitrogen/Creatinine [Mass ratio] 14.1 mg/mg Normal [facility] Comment on above: Performed By: #### C MADM, LIPA, BNP, CMP #### [facility] [address] [place] [address] Dr. Tasha Dodson PROF CHEM 8 (BAS METB)on Anion gap [Moles/Vol] 11.4 mmol/L Normal [facility] Comment on above: Performed By: #### T SH, BMP #### [facility] [address] [place] [address] Dr. Tasha Dodson Calcium [Mass/Vol] 8.4 mg/dL Critically low 8.5-10.1 [facility] Comment on above: Performed By: #### T SH, BMP #### [facility] [address] [address] [address] Tasha Dodson Chloride [Moles/Vol] 89 mmol/L Critically low 98-107 [facility] Comment on above: Performed By: #### T SH, BMP #### [facility] [address] [address] [address] Tasha Dodson CO2 [Moles/Vol] 25.5 mmol/L Normal 21.0-32.0 [facility] Comment on above: Performed By: #### T SH, BMP #### [facility] [address] [address] [address] Tasha Dodson Creatinine [Mass/Vol] 0.89 mg/dL Normal 0.55-1.02 [facility] Comment on above: Performed By: #### T SH, BMP #### [facility] [address] [address] [address] Tasha Dodson EGFR-AF TURKISH >60 Normal >=60 [facility] Comment on above: Performed By: #### T SH, BMP #### [facility] [address] [address] [address] Tasha Dodson EGFR-NON AF TURKISH 60 mL/min/1.73m2 Normal >=60 [facility] Comment on above: Performed By: #### T SH, BMP #### [facility] [address] [address] [address] Tasha Dodson Glucose [Mass/Vol] 166 mg/dL Critically high 74-106 [facility] Comment on above: Performed By: #### T SH, BMP #### [facility] [address] [address] [address] Tasha Dodson Potassium [Moles/Vol] 3.0 mmol/L Critically low 3.5-5.1 [facility] Comment on above: Performed By: #### T SH, BMP #### [facility] [address] [address] [address] Tasha Dodson Sodium [Moles/Vol] 123 mmol/L Critically low 136-145 [facility] Comment on above: Performed By: #### T JESI, BMP #### [facility] [address] [place] [address] Dr. Tasha Dodson Urea nitrogen [Mass/Vol] 9.0 mg/dL Normal 7.0-18.0 [facility] Comment on above: Performed By: #### T JESI, BMP #### [facility] [address] [place] [address] Dr. Tasha Dodson Urea nitrogen/Creatinine [Mass ratio] 10.1 mg/mg Normal [facility] Comment on above: Performed By: #### T JESI, BMP #### [facility] [address] [place] [address] Dr. Tasha Dodson PROTIMEon 12-26-2021 INR Coag (PPP) [Relative time] 0.96 {INR} Normal [facility] Comment on above: Performed By: #### T JESI, BMP #### [facility] [address] [place] [address] Dr. Tasha Dodson INR GUIDELINES SEE BELOW Normal [facility] Comment on above: Result Comment: JO RED INR: 2.0 - 3.0 CONDITIONS NOT LISTED BELOW 2.5 - 3.5 FOR PROSTHETIC HEART VALVE REPLACEMENT 2.5 - 3.5 RECURRENT THROMBOSIS Performed By: #### T JESI, BMP #### [facility] [address] [place] [address] Dr. Tasha Dodson PT Coag (PPP) [Time] 10.4 s Normal 9.0-11.6 [facility] Comment on above: Performed By: #### T JESI, BMP #### [facility] [address] [place] [address] Dr. Tasha Dodson PTTon 12-26-2021 aPTT Coag (Bld) [Time] 26.2 s Normal 22.3-36.2 [facility] Comment on above: Performed By: #### T JESI, BMP #### [facility] [address] [place] [address] Dr. Tasha Dodson SODIUM RANDOM URINEon 2021 Sodium (U) [Moles/Vol] 71 mmol/L Normal 30-90 [facility] Comment on above: Performed By: #### T SH, BMP #### [facility] [address] [place] [address] Dr. Tasha Dodson T4on 12-26-2021 T4 [Mass/Vol] 10.60 ug/dL Normal 4.80-13.90 [facility] Comment on above: Performed By: #### C BC #### [facility] [address] [place] [address] Dr. Tasha Dodson TSHon 12-26-2021 TSH 5.236 uIU/mL Critically high 0.358-3.740 [facility] Comment on above: Performed By: #### C BC #### [facility] [address] [place] [address] Dr. Tasha Dodson URINE MICROSCOPIC ONLYon BACTERIA TRACE Abnormal NONE SEEN [facility] Comment on above: Performed By: #### T SH, BMP #### [facility] [address] [place] [address] Dr. Tasha Dodson Bacteria identified Cx Nom (U) NOT INDICATED Normal [facility] Comment on above: Performed By: #### T SH, BMP #### [facility] [address] [place] [address] Dr. Tasha Dodson CAST NONE SEEN Normal NONE SEEN [facility] Comment on above: Performed By: #### T SH, BMP #### [facility] [address] [place] [address] Dr. Tasha Dodson Crystals LM Nom (Urine sed) NONE SEEN Normal NONE SEEN [facility] Comment on above: Performed By: #### T SH, BMP #### [facility] [address] [place] [address] Dr. Tasha Dodson Epithelial cells LM Ql (Urine sed) NONE SEEN Normal NONE SEEN /RARE [facility] Comment on above: Performed By: #### T SH, BMP #### [facility] [address] [place] [address] Dr. Tasha Dodson MUCOUS NONE SEEN Normal NONE SEEN [facility] Comment on above: Performed By: #### T SH, BMP #### [facility] [address] [address] [address] Tasha Dodson RBC 0-2 Normal 0-2 [facility] Comment on above: Performed By: #### T PAWAN DENNISON #### [facility] [address] [address] [address] Tasha Dodson WBC 0-2 Abnormal NONE SEEN [facility] Comment on above: Performed By: #### T PAWAN DENNISON #### [facility] [address] [address] [address] Tasha Dodson XR CHEST 1 Von [...] TING MIXON Date: 2021-12-26 11:32 Normal [facility] XR LSPINE MIN 4 VIEWSon 11-20 [...] by: JESUS BRUNO Date: 2021-11-30 22:52 Normal [facility] CBC AUTO DIFFon 11-09-2021 BASO # 0.1 103/ul Normal 0.0-0.1 [facility] Comment on above: Performed By: #### C MADM, LIPA, BNP, CMP #### [facility] [address] [place] [address] Dr. Tasha Dodson Basophils/100 WBC (Bld) 0.7 % Normal 0.2-2.0 [facility] Comment on above: Performed By: #### C MADM, LIPA, BNP, CMP #### [facility] [address] [place] [address] Dr. Tasha Dodson EO # 0.2 103/ul Normal 0.0-0.7 [facility] Comment on above: Performed By: #### C MADM, LIPA, BNP, CMP #### [facility] [address] [place] [address] Dr. Tasha Dodson Eosinophils/100 WBC (Bld) 1.8 % Normal 0.9-7.0 [facility] Comment on above: Performed By: #### C MADM, LIPA, BNP, CMP #### [facility] [address] [place] [address] Dr. Tasha Dodson Erythrocyte distribution width (RBC) [Ratio] 13.0 % Normal 11.0-15.0 [facility] Comment on above: Performed By: #### C MADM, LIPA, BNP, CMP #### [facility] [address] [place] [address] Dr. Tasha Dodson Hematocrit (Bld) [Volume fraction] 33.8 % Critically low 36.0-48.0 [facility] Comment on above: Performed By: #### C MADM, LIPA, BNP, CMP #### [facility] [address] [place] [address] Dr. Tasha Dodson Hemoglobin (Bld) [Mass/Vol] 12.5 g/dL Normal 12.0-16.0 [facility] Comment on above: Performed By: #### C MADM, LIPA, BNP, CMP #### [facility] [address] [place] [address] Dr. Tasha Dodson IG # 0.02 10e3/ul Normal 0.00-0.03 [facility] Comment on above: Performed By: #### C MADM, LIPA, BNP, CMP #### [facility] [address] [place] [address] Dr. Tasha Dodson IG % 0.2 % Normal 0.0-0.5 [facility] Comment on above: Performed By: #### C MADM, LIPA, BNP, CMP #### [facility] [address] [place] [address] Dr. Tasha Dodson LYMPH # 2.9 103/ul Normal 1.2-3.8 [facility] Comment on above: Performed By: #### C MADM, LIPA, BNP, CMP #### [facility] [address] [place] [address] Dr. Tasha Dodson Lymphocytes/100 WBC (Bld) 29.4 % Normal 20.5-60.0 [facility] Comment on above: Performed By: #### C MADM, LIPA, BNP, CMP #### [facility] [address] [place] [address] Dr. Tasha Dodson MANUAL DIFF REQ NO Normal [facility] Comment on above: Performed By: #### C MADM, LIPA, BNP, CMP #### [facility] [address] [place] [address] Dr. Tasha Dodson MCH (RBC) [Entitic mass] 34.1 pg Critically high 26.7-34.0 [facility] Comment on above: Performed By: #### C MADM, LIPA, BNP, CMP #### [facility] [address] [place] [address] Dr. Tasha Dodson MCHC (RBC) [Mass/Vol] 37.0 g/dL Critically high 29.9-35.2 [facility] Comment on above: Performed By: #### C MADM, LIPA, BNP, CMP #### [facility] [address] [place] [address] Dr. Tasha Dodson MCV (RBC) [Entitic vol] 92.1 fL Normal 81.0-99.0 [facility] Comment on above: Performed By: #### C MADM, LIPA, BNP, CMP #### [facility] [address] [place] [address] Dr. Tasha Dodson MONO # 0.8 103/ul Normal 0.3-0.8 [facility] Comment on above: Performed By: #### C MADM, LIPA, BNP, CMP #### [facility] [address] [place] [address] Dr. Tasha Dodson Monocytes/100 WBC (Bld) 8.2 % Normal 1.7-12.0 [facility] Comment on above: Performed By: #### C MADM, LIPA, BNP, CMP #### [facility] [address] [place] [address] Dr. Tasha Dodson NEUT # 5.9 103/ul Normal 1.4-6.5 [facility] Comment on above: Performed By: #### C MADM, LIPA, BNP, CMP #### [facility] [address] [place] [address] Dr. Tasha Dodson Neutrophils/100 WBC (Bld) 59.7 % Normal 43.0-75.0 [facility] Comment on above: Performed By: #### C MADM, LIPA, BNP, CMP #### [facility] [address] [place] [address] Dr. Tasha Dodson Platelet mean volume (Bld) [Entitic vol] 8.9 fL Critically low 9.5-13.5 [facility] Comment on above: Performed By: #### C MADM, LIPA, BNP, CMP #### [facility] [address] [place] [address] Dr. Tasha Dodson PLT 370 103/ul Normal 150-450 [facility] Comment on above: Performed By: #### C MADM, LIPA, BNP, CMP #### [facility] [address] [place] [address] Dr. Tasha Dodson RBC 3.67 106/ul Critically low 4.20-5.40 [facility] Comment on above: Performed By: #### C MADM, LIPA, BNP, CMP #### [facility] [address] [place] [address] Dr. Tasha Dodson WBC 9.9 103/ul Normal 4.0-11.0 [facility] Comment on above: Performed By: #### C MADM, LIPA, BNP, CMP #### [facility] [address] [place] [address] Dr. Tasha Dodson FREE T4on 11-09-2021 Free T4 [Mass/Vol] 1.48 ng/dL Critically high 0.76-1.46 [facility] Comment on above: Performed By: #### F T4 #### [facility] [address] [place] [address] Dr. Tasha Dodson PROF CHEM 8 (BAS METB)on Anion gap [Moles/Vol] 11.1 mmol/L Normal [facility] Comment on above: Performed By: #### T SH, BMP #### [facility] [address] [place] [address] Dr. Tasha Dodson Calcium [Mass/Vol] 9.3 mg/dL Normal 8.5-10.1 [facility] Comment on above: Performed By: #### T SH, BMP #### [facility] [address] [place] [address] Dr. Tasha Dodson Chloride [Moles/Vol] 92 mmol/L Critically low 98-107 [facility] Comment on above: Performed By: #### T SH, BMP #### [facility] [address] [place] [address] Dr. Tasha Dodson CO2 [Moles/Vol] 29.2 mmol/L Normal 21.0-32.0 [facility] Comment on above: Performed By: #### T SH, BMP #### [facility] [address] [place] [address] Dr. Tasha Dodson Creatinine [Mass/Vol] 0.68 mg/dL Normal 0.55-1.02 [facility] Comment on above: Performed By: #### T SH, BMP #### [facility] [address] [place] [address] Dr. Tasha Dodson EGFR-AF TURKISH >60 Normal >=60 [facility] Comment on above: Performed By: #### T SH, BMP #### [facility] [address] [address] [address] Tasha Dodson EGFR-NON AF TURKISH >60 Normal >=60 [facility] Comment on above: Performed By: #### T SH, BMP #### [facility] [address] [address] [address] Tasha Dodson Glucose [Mass/Vol] 109 mg/dL Critically high 74-106 [facility] Comment on above: Performed By: #### T SH, BMP #### [facility] [address] [address] [address] Tasha Dodson Potassium [Moles/Vol] 3.3 mmol/L Critically low 3.5-5.1 [facility] Comment on above: Performed By: #### T SH, BMP #### [facility] [address] [place] [address] Dr. Tasha Dodson Sodium [Moles/Vol] 129 mmol/L Critically low 136-145 [facility] Comment on above: Performed By: #### T SH, BMP #### [facility] [address] [address] [address] Tasha Dodson Urea nitrogen [Mass/Vol] 9.0 mg/dL Normal 7.0-18.0 [facility] Comment on above: Performed By: #### T SH, BMP #### [facility] [address] [place] [address] Dr. Tasha Dodson Urea nitrogen/Creatinine [Mass ratio] 13.2 mg/mg Normal [facility] Comment on above: Performed By: #### T SH, BMP #### [facility] [address] [address] [address] Tasha Dodson TSHon 11-09-2021 TSH 1.193 uIU/mL Normal 0.358-3.740 [facility] Comment on above: Performed By: #### T SH, BMP #### [facility] [address] [place] [address] Dr. Tasha Dodson LIPID PROFILEon 08-06-2021 CHOL-HDL RATIO NORM SEE BELOW Normal [facility] Comment on above: Result Comment: 3.3 - 4.4 LOW RISK 4.4 - 7.1 AVERAGE RISK 7.1 - 11.0 MODERATE RISK >11.0 HIGH RISK Performed By: #### C MADM, LIPA, BNP, CMP #### [facility] [address] [address] [address] Tasha Dodson Cholesterol [Mass/Vol] 198 mg/dL Normal <=200 Th [facility] Comment on above: Performed By: #### C MADM, LIPA, BNP, CMP #### [facility] [address] [address] [address] Tasha Dodson Cholesterol in HDL [Mass/Vol] 77 mg/dL Critically high 40-60 [facility] Comment on above: Performed By: #### C MADM, LIPA, BNP, CMP #### [facility] [address] [address] [address] Tasha Dodson Cholesterol in LDL [Mass/Vol] 106.0 mg/dL Normal [facility] Comment on above: Performed By: #### C MADM, LIPA, BNP, CMP #### [facility] [address] [address] [address] Tasha Dodson Cholesterol.total/Shahana sterol in HDL [Mass ratio] 2.6 {ratio} Normal [facility] Comment on above: Performed By: #### C MADM, LIPA, BNP, CMP #### [facility] [address] [address] [address] Tasha Dodson HDL NORMAL > or = 60 mg/dl - LO W CARDIOVASCULAR RISK <40 mg/dl - HIGH CARDIOVASCULAR RISK Normal [facility] Comment on above: Performed By: #### C MADM, LIPA, BNP, CMP #### [facility] [address] [address] [address] Tasha Dodson LDL CALC NORMAL SEE BELOW Normal [facility] Comment on above: Result Comment: <100 mg/dl OPTIMAL 100 - 129 mg/dl NEAR OR ABOVE OPTIMAL 130 - 159 mg/dl BORDERLINE HIGH 160 - 189 mg/dl HIGH >190 mg/dl VERY HIGH Performed By: #### C MADM, LIPA, BNP, CMP #### [facility] [address] [address] [address] Tasha Dodson Triglyceride [Mass/Vol] 75 mg/dL Normal <=150 T [facility] Comment on above: Performed By: #### C MADM, LIPA, BNP, CMP #### [facility] [address] [address] [address] Tasha Dodson VLDL CALC 15.0 mg/dL Normal [facility] Comment on above: Performed By: #### C MADM, LIPA, BNP, CMP #### [facility] [address] [address] [address] Tasha Dodson LIVER PROFILEon 08-06-2021 Albumin [Mass/Vol] 3.7 g/dL Normal 3.4-5.0 [facility] Comment on above: Performed By: #### C MADM, LIPA, BNP, CMP #### [facility] [address] [address] [address] Tasha Dodson Albumin/Globulin [Mass ratio] 1.0 {ratio} Normal [facility] Comment on above: Performed By: #### C MADM, LIPA, BNP, CMP #### [facility] [address] [address] [address] Tasha Dodson ALP [Catalytic activity/Vol] 62 U/L Normal 46-116 [facility] Comment on above: Performed By: #### C MADM, LIPA, BNP, CMP #### [facility] [address] [address] [address] Tasha Dodson ALT [Catalytic activity/Vol] 26 U/L Normal 14-59 [facility] Comment on above: Performed By: #### C MADM, LIPA, BNP, CMP #### [facility] [address] [address] [address] Tasha Dodson AST [Catalytic activity/Vol] 24 U/L Normal 15-37 [facility] Comment on above: Performed By: #### C MADM, LIPA, BNP, CMP #### [facility] [address] [address] [address] Tasha Dodson BILI, CONJUGATED 0.1 mg/dL Normal 0.0-0.2 [facility] Comment on above: Performed By: #### C MADM, LIPA, BNP, CMP #### [facility] [address] [place] [address] Dr. Tasha Dodson Bilirubin [Mass/Vol] 0.5 mg/dL Normal 0.2-1.0 [facility] Comment on above: Performed By: #### C MADM, LIPA, BNP, CMP #### [facility] [address] [place] [address] Dr. Tasha Dodson Globulin (S) [Mass/Vol] 3.8 g/dL Normal [facility] Comment on above: Performed By: #### C MADM, LIPA, BNP, CMP #### [facility] [address] [place] [address] Dr. Tasha Dodson Protein [Mass/Vol] 7.5 g/dL Normal 6.4-8.2 [facility] Comment on above: Performed By: #### C MADM, LIPA, BNP, CMP #### [facility] [address] [place] [address] Dr. Tasha Dodson FREE T4on 07-28-2021 Free T4 [Mass/Vol] 1.32 ng/dL Normal 0.76-1.46 [facility] Comment on above: Performed By: #### T SH, BMP #### [facility] [address] [place] [address] Dr. Tasha Dodson PROF CHEM 8 (BAS METB)on Anion gap [Moles/Vol] 11.6 mmol/L Normal [facility] Comment on above: Performed By: #### B MP, TSH #### [facility] [address] [place] [address] Dr. Tasha Dodson Calcium [Mass/Vol] 9.4 mg/dL Normal 8.5-10.1 [facility] Comment on above: Performed By: #### B MP, TSH #### [facility] [address] [place] [address] Dr. Tasha Dodson Chloride [Moles/Vol] 93 mmol/L Critically low 98-107 [facility] Comment on above: Performed By: #### B MP, TSH #### [facility] [address] [address] [address] Tasha Dodson CO2 [Moles/Vol] 29.8 mmol/L Normal 21.0-32.0 [facility] Comment on above: Performed By: #### B MP, TSH #### [facility] [address] [address] [address] Tasha Dodson Creatinine [Mass/Vol] 0.74 mg/dL Normal 0.55-1.02 [facility] Comment on above: Performed By: #### B MP, TSH #### [facility] [address] [place] [address] Dr. Tasha Dodson EGFR-AF TURKISH >60 Normal >=60 [facility] Comment on above: Performed By: #### B MP, TSH #### [facility] [address] [place] [address] Dr. Tasha Dodson EGFR-NON AF TURKISH >60 Normal >=60 [facility] Comment on above: Performed By: #### B MP, TSH #### [facility] [address] [address] [address] Tasha Dodson Glucose [Mass/Vol] 114 mg/dL Critically high 74-106 [facility] Comment on above: Performed By: #### B MP, TSH #### [facility] [address] [address] [address] Tasha Dodson Potassium [Moles/Vol] 3.4 mmol/L Critically low 3.5-5.1 [facility] Comment on above: Performed By: #### B MP, TSH #### [facility] [address] [address] [address] Tasha Dodson Sodium [Moles/Vol] 131 mmol/L Critically low 136-145 [facility] Comment on above: Performed By: #### B MP, TSH #### [facility] [address] [address] [address] Tasha Dodson Urea nitrogen [Mass/Vol] 12.0 mg/dL Normal 7.0-18.0 [facility] Comment on above: Performed By: #### B MP, TSH #### [facility] [address] [address] [address] Tasha Dodson Urea nitrogen/Creatinine [Mass ratio] 16.2 mg/mg Normal [facility] Comment on above: Performed By: #### B MP, TSH #### [facility] [address] [address] [address] Tasha Dodson TSHon 07-28-2021 TSH 1.790 uIU/mL Normal 0.358-3.740 [facility] Comment on above: Performed By: #### B MP, TSH #### [facility] [address] [place] [address] Dr. Tasha Dodson TSH RANGE SEE BELOW Normal [facility] Comment on above: Result Comment: <0.3 4 UIU/ml HYPERTHYROID 0.34-5.60 UIU/ml EUTHYROID >5.60 UIU/ml HYPOTHYROID Performed By: #### B MP, TSH #### [facility] [address] [address] [address] Tasha Dodson CBC Auto Differentialon 10-0 Basophils (Bld) [#/Vol] 0.1 10*3/uL 0 - 0.2 K/uL [place] Basophils/100 WBC (Bld) 1.1 % [place] Eosinophils (Bld) [#/Vol] 0.2 10*3/uL 0 - 0.7 K/uL [place] Eosinophils/100 WBC (Bld) 1.4 % [place] Erythrocyte distribution width (RBC) [Ratio] 14.4 % 11.5 - 14.5 % [place] Hematocrit (Bld) [Volume fraction] 33.6 % Low 37 - 47 % [place] Hemoglobin (Bld) [Mass/Vol] 11.1 g/dL Low 12 - 16 g/dL [place] Interpretation and review of laboratory results Abnormal [place] Lymphocytes (Bld) [#/Vol] 2.3 10*3/uL 1 - 4.8 K/uL [place] Lymphocytes/100 WBC (Bld) 18.0 % [place] MCH (RBC) [Entitic mass] 29.5 pg 27 - 31.3 pg [place] MCHC (RBC) [Mass/Vol] 33.0 % 33 - 37 % [place] MCV (RBC) [Entitic vol] 89.5 fL 82 - 100 fL [place] Monocytes (Bld) [#/Vol] 0.9 10*3/uL High 0.2 - 0.8 K/uL [place] Monocytes/100 WBC (Bld) 6.9 % [place] Neutrophils Absolute 9.1 K/uL High 1.4 - 6 .5 K/uL [place] Neutrophils/100 WBC (Bld) 72.6 % [place] Platelets (Bld) [#/Vol] 548 10*3/uL High 130 - 400 K/uL [place] RBC (Bld) [#/Vol] 3.75 10*6/uL Low [place] WBC (Bld) [#/Vol] 12.5 10*3/uL High 4.8 - 10.8 K/uL [place] CBC With Platelet and Differ entialon 11-20-2018 Basophils (Bld) [#/Vol] 0.1 10*3/uL Normal [facility]0-0.2 [facility] Comment on above: Performed By: #### E SR #### [facility] [address] [facility] [address] Basophils/100 WBC (Bld) 1.1 % Normal [facility] Comment on above: Performed By: #### E SR #### [facility] [address] [facility] [address] Eosinophils (Bld) [#/Vol] 0.2 10*3/uL Normal 0.0-0.7 [facility] Comment on above: Performed By: #### E SR #### [facility] [address] [place] [address] Eosinophils/100 WBC (Bld) 1.4 % Normal [facility] Comment on above: Performed By: #### E SR #### [facility] [address] [place] [address] Erythrocyte distribution width (RBC) [Ratio] 14.4 % Normal 11.5-14.5 [facility] Comment on above: Performed By: #### E SR #### [facility] [address] [place] [address] Hematocrit (Bld) [Volume fraction] 33.6 % Low 37.0-47.0 [facility] Comment on above: Performed By: #### E SR #### [facility] [address] [place] [address] Hemoglobin (Bld) [Mass/Vol] 11.1 g/dL Low 12.0-16.0 [facility] Comment on above: Performed By: #### E SR #### [facility] [address] [place] [address] Lymphocytes (Bld) [#/Vol] 2.3 10*3/uL Normal 1.0-4.8 [facility] Comment on above: Performed By: #### E SR #### [facility] [address] [place] [address] Lymphocytes/100 WBC (Bld) 18.0 % Normal [facility] Comment on above: Performed By: #### E SR #### [facility] [address] [address] MCH (RBC) [Entitic mass] 29.5 pg Normal 27.0-31.3 [facility] Comment on above: Performed By: #### E SR #### [facility] [address] [place] [address] MCHC (RBC) [Mass/Vol] 33.0 % Normal 33.0-37.0 [facility] Comment on above: Performed By: #### E SR #### [facility] [address] [place] [address] MCV (RBC) [Entitic vol] 89.5 fL Normal 82.0-100.0 [facility] Comment on above: Performed By: #### E SR #### [facility] [address] [place] [address] Monocytes (Bld) [#/Vol] 0.9 10*3/uL Critically high 0.2-0. 8 [facility] Comment on above: Performed By: #### E SR #### [facility] [address] [place] [address] Monocytes/100 WBC (Bld) 6.9 % Normal [facility] Comment on above: Performed By: #### E SR #### [facility] [address] [place] [address] Neutrophils (Bld) [#/Vol] 9.1 10*3/uL Critically high 1.4-6.5 [facility] Comment on above: Performed By: #### E SR #### [facility] [address] [place] [address] Neutrophils/100 WBC (Bld) 72.6 % Normal [facility] Comment on above: Performed By: #### E SR #### [facility] [address] [place] [address] Platelets (Bld) [#/Vol] 548 10*3/uL Critically high 130-40 0 [facility] Comment on above: Performed By: #### E SR #### [facility] [address] [place] [address] RBC (Bld) [#/Vol] 3.75 10*6/uL Low 4.20-5.40 [facility] Comment on above: Performed By: #### E SR #### [facility] [address] [place] [address] WBC (Bld) [#/Vol] 12.5 10*3/uL Critically high 4.8-10.8 [facility] Comment on above: Performed By: #### E SR #### [facility] [address] [place] [address] EKG 12 Leadon 11-20-2018 Atrial Rate 79 BPM [place] P [place] 58 degrees [place] P-R Interval 176 ms [place] Q-T Interval 404 ms [facility] QRS Duration 130 ms [place] QTc Calculation (Bazett) 463 ms [place] R [place] -11 degrees [facility], [place] T [place] 5 degrees [place] Urea nitrogen [Mass/Vol] Normal sinus rhythm Right bundle branch block Moderate voltage criteria for LVH, may be normal variant Abnormal ECG When compared with ECG of 13-NOV-2018 08:33, No significant change was found Confirmed by Анна Zamarripa ([id number]) on 11/20/2018 9:39:56 AM [place] Ventricular Rate 79 BPM [place] Jose[place], Chpo Incoming Results From [place] - 11/20/2018 9:40 AM EDT Normal sinus rhythm Right bundle branch block Moderate voltage criteria for LVH, may be normal variant Abnormal ECG When compared with ECG of 13-NOV-2018 08:33, No significant change was found Confirmed by Анна Zamarripa ([id number]) on 11/20/2018 9:39:56 AM [place] CBC Auto Differentialon 10-23 Neutrophils Absolute 6.1 K/uL 1.4 - 6 .5 K/uL [place] CBC With Platelet and Differ entialon 11-19-2018 Basophils (Bld) [#/Vol] 0.2 10*3/uL Normal 0.0-0.2 [place] Comment on above: Performed By: #### C MP #### [facility] [address] [place] [address] Basophils/100 WBC (Bld) 1.5 % Normal [place] Comment on above: Performed By: #### C MP #### [facility] [address] [place] [address] Eosinophils (Bld) [#/Vol] 0.3 10*3/uL Normal 0.0-0.7 [place] Comment on above: Performed By: #### C MP #### [facility] [address] [place] [address] Eosinophils/100 WBC (Bld) 2.5 % Normal [place] Comment on above: Performed By: #### C MP #### [facility] [address] [place] [address] Erythrocyte distribution width (RBC) [Ratio] 14.1 % Normal 11.5-14.5 [place] Comment on above: Performed By: #### C MP #### [facility] [address] [place] [address] Hematocrit (Bld) [Volume fraction] 29.3 % Low 37.0-47.0 [place] Comment on above: Performed By: #### C MP #### [facility] [address] [place] [address] Hemoglobin (Bld) [Mass/Vol] 10.1 g/dL Low 12.0-16.0 [place] Comment on above: Performed By: #### C MP #### [facility] [address] [place] [address] Lymphocytes (Bld) [#/Vol] 2.8 10*3/uL Normal 1.0-4.8 [place] Comment on above: Performed By: #### C MP #### [facility] [address] [place] [address] Lymphocytes/100 WBC (Bld) 27.3 % Normal [place] Comment on above: Performed By: #### C MP #### [facility] [address] [place] [address] MCH (RBC) [Entitic mass] 30.7 pg Normal 27.0-31.3 [place] Comment on above: Performed By: #### C MP #### [facility] [address] [address] MCHC (RBC) [Mass/Vol] 34.6 % Normal 33.0-37.0 [place] Comment on above: Performed By: #### C MP #### [facility] [address] [address] MCV (RBC) [Entitic vol] 88.9 fL Normal 82.0-100.0 [place] Comment on above: Performed By: #### C MP #### [facility] [address] [place] [address] Monocytes (Bld) [#/Vol] 0.9 10*3/uL Critically high 0.2-0. 8 [place] Comment on above: Performed By: #### C MP #### [facility] [address] [place] [address] Monocytes/100 WBC (Bld) 9.2 % Normal [place] Comment on above: Performed By: #### C MP #### [facility] [address] [place] [address] Neutrophils (Bld) [#/Vol] 6.1 10*3/uL Normal 1.4-6.5 [facility] Comment on above: Performed By: #### C MP #### [facility] [address] [place] [address] Neutrophils/100 WBC (Bld) 59.5 % Normal [place] Comment on above: Performed By: #### C MP #### [facility] [address] [place] [address] Platelets (Bld) [#/Vol] 396 10*3/uL Normal 130-400 [place] Comment on above: Performed By: #### C MP #### [facility] [address] [place] [address] RBC (Bld) [#/Vol] 3.30 10*6/uL Low 4.20-5.40 [place] Comment on above: Performed By: #### C MP #### [facility] [address] [place] [address] WBC (Bld) [#/Vol] 10.2 10*3/uL Normal 4.8-10.8 [place] Comment on above: Performed By: #### C MP #### [facility] [address] [place] [address] High Sensitivity CRPon 11-19 High Sensitivity CRP 89.2 mg/L Critically high 0.0-5.0 [facility] Comment on above: Performed By: #### E SR #### [facility] [address] [place] [address] High sensitivity CRPon 11-19 CRP High Sensitivity 89.2 mg/L High 0 - 5 mg/L [place] Interpretation and review of laboratory results Abnormal [place] Otheron 11-19-2018 Interpretation and review of laboratory results Abnormal [place] Sedimentation Rateon 019 Sedimentation Rate 55 mm Critically high 0-30 M [facility] Comment on above: Performed By: #### C MP #### [facility] [address] [place] [address] Sed Rate 55 mm High 0 - 30 mm [place] Basic Metabolic Panelon 10-22 Anion gap [Moles/Vol] 14 mmol/L Normal 9-15 [facility] Comment on above: Performed By: #### C MP #### [facility] [address] [place] [address] Calcium [Mass/Vol] 8.8 mg/dL Normal 8.5-9.9 [facility] Comment on above: Performed By: #### C MP #### [facility] [address] [place] [address] Chloride [Moles/Vol] 95 mmol/L Normal 95-107 [facility] Comment on above: Performed By: #### C MP #### [facility] [address] [place] [address] CO2 [Moles/Vol] 26 mmol/L Normal 20-31 [facility] Comment on above: Performed By: #### C MP #### [facility] [address] [place] [address] Creatinine [Mass/Vol] 0.58 mg/dL Normal 0.50-0.90 [facility] Comment on above: Performed By: #### C MP #### [facility] [address] [place] [address] GFR/1.73 sq M predicted among blacks MDRD (S/P/Bld) [Vol rate/Area] mL/min/{1.73_m2} Normal >60 [facility] Comment on above: Result Comment: >60 mL/min/1.73m2 EGFR, calc. for ages 18 and older using the MDRD formula (not corrected for weight), is valid for stable renal function. Performed By: #### C MP #### [facility] [address] [place] [address] GFR/1.73 sq M.predicted MDRD (S/P/Bld) [Vol rate/Area] mL/min/{1.73_m2} Normal >60 [facility] Comment on above: Result Comment: >60 mL/min/1.73m2 EGFR, calc. for ages 18 and older using the MDRD formula (not corrected for weight), is valid for stable renal function. Performed By: #### C MP #### [facility] [address] [place] [address] Glucose [Mass/Vol] 156 mg/dL Critically high 70-99 M [facility] Comment on above: Performed By: #### C MP #### [facility] [address] [place] [address] Potassium [Moles/Vol] 3.3 mmol/L Low 3.4-4.9 [facility] Comment on above: Performed By: #### C MP #### [facility] [address] [place] [address] Sodium [Moles/Vol] 135 mmol/L Normal 135-144 [facility] Comment on above: Performed By: #### C MP #### [facility] [address] [place] [address] Urea nitrogen [Mass/Vol] 11 mg/dL Normal 8-23 [facility] Comment on above: Performed By: #### C MP #### [facility] [address] [place] [address] Anion gap [Moles/Vol] 14 mmol/L [place] Calcium [Mass/Vol] 8.8 mg/dL 8.5 - 9.9 mg/dL [place] Chloride [Moles/Vol] 95 mmol/L [place] CO2 [Moles/Vol] 26 mmol/L [place] Creatinine [Mass/Vol] 0.58 mg/dL 0.5 - 0.9 mg/dL [place] GFR >60.0 >60 [place] Comment on above: >60 mL/min/1.73m2 EG FR, calc. for ages 18 and older using the MDRD formula (not corrected for weight), is valid for stable renal function. GFR Non- >60.0 >60 [place] Comment on above: >60 mL/min/1.73m2 EG FR, calc. for ages 18 and older using the MDRD formula (not corrected for weight), is valid for stable renal function. Glucose [Mass/Vol] 156 mg/dL High 70 - 99 mg/dL [place] Interpretation and review of laboratory results Abnormal [place] Potassium [Moles/Vol] 3.3 mmol/L [place] Sodium [Moles/Vol] 135 mmol/L [place] Urea nitrogen [Mass/Vol] 11 mg/dL 8 - 23 mg/dL [place] Magnesiumon 11-18-2018 Magnesium [Mass/Vol] 1.8 mg/dL Normal 1.7-2.4 [facility] Comment on above: Performed By: #### C MP #### [facility] [address] [place] [address] Magnesium [Mass/Vol] 1.8 mg/dL 1.7 - 2 .4 mg/dL [place] TSH w/out Reflexon 9 TSH Qn 0.880 uIU/mL Normal 0.440-3.86 [facility] Comment on above: Performed By: #### C MP #### [facility] [address] [place] [address] TSH without Reflexon 019 TSH Qn 0.880 m[IU]/L [place] CBC Auto Differentialon 10-22 Basophils (Bld) [#/Vol] 0.1 10*3/uL 0 - 0.2 K/uL [place] Basophils/100 WBC (Bld) 0.7 % [place] Eosinophils (Bld) [#/Vol] 0.4 10*3/uL 0 - 0.7 K/uL [place] Eosinophils/100 WBC (Bld) 2.8 % [place] Erythrocyte distribution width (RBC) [Ratio] 14.2 % 11.5 - 14.5 % [place] Hematocrit (Bld) [Volume fraction] 32.3 % Low 37 - 47 % [place] Hemoglobin (Bld) [Mass/Vol] 10.8 g/dL Low 12 - 16 g/dL [place] Interpretation and review of laboratory results Abnormal [place] Lymphocytes (Bld) [#/Vol] 2.6 10*3/uL 1 - 4.8 K/uL [place] Lymphocytes/100 WBC (Bld) 16.8 % [place] MCH (RBC) [Entitic mass] 30.3 pg 27 - 31.3 pg [place] MCHC (RBC) [Mass/Vol] 33.4 % 33 - 37 % [place] MCV (RBC) [Entitic vol] 90.5 fL 82 - 100 fL [place] Monocytes (Bld) [#/Vol] 1.3 10*3/uL High 0.2 - 0.8 K/uL [place] Monocytes/100 WBC (Bld) 8.3 % [place] Neutrophils Absolute 11.1 K/uL High 1.4 - 6 .5 K/uL [place] Neutrophils/100 WBC (Bld) 71.4 % [place] Platelets (Bld) [#/Vol] 375 10*3/uL 130 - 400 K/uL [place] RBC (Bld) [#/Vol] 3.57 10*6/uL Low [place] WBC (Bld) [#/Vol] 15.5 10*3/uL High 4.8 - 10.8 K/uL [place] CBC With Platelet and Differ entialon 11-17-2018 Basophils (Bld) [#/Vol] 0.1 10*3/uL [facility]0.2 [facility] Comment on above: Performed By: #### C MP #### [facility] [address] [place] [address] Basophils/100 WBC (Bld) 0.7 % Normal [facility] Comment on above: Performed By: #### C MP #### [facility] [address] [place] [address] Eosinophils (Bld) [#/Vol] 0.4 10*3/uL Normal 0.0-0.7 [facility] Comment on above: Performed By: #### C MP #### [facility] [address] [place] [address] Eosinophils/100 WBC (Bld) 2.8 % Normal [facility] Comment on above: Performed By: #### C MP #### [facility] [address] [place] [address] Erythrocyte distribution width (RBC) [Ratio] 14.2 % Normal 11.5-14.5 [facility] Comment on above: Performed By: #### C MP #### [facility] [address] [place] [address] Hematocrit (Bld) [Volume fraction] 32.3 % Low 37.0-47.0 [facility] Comment on above: Performed By: #### C MP #### [facility] [address] [place] [address] Hemoglobin (Bld) [Mass/Vol] 10.8 g/dL Low 12.0-16.0 [facility] Comment on above: Performed By: #### C MP #### [facility] [address] [place] [address] Lymphocytes (Bld) [#/Vol] 2.6 10*3/uL Normal 1.0-4.8 [facility] Comment on above: Performed By: #### C MP #### [facility] [address] [place] [address] Lymphocytes/100 WBC (Bld) 16.8 % Normal [facility] Comment on above: Performed By: #### C MP #### [facility] [address] [place] [address] MCH (RBC) [Entitic mass] 30.3 pg Normal 27.0-31.3 [facility] Comment on above: Performed By: #### C MP #### [facility] [address] [place] [address] MCHC (RBC) [Mass/Vol] 33.4 % Normal 33.0-37.0 [facility] Comment on above: Performed By: #### C MP #### [facility] [address] [place] [address] MCV (RBC) [Entitic vol] 90.5 fL Normal 82.0-100.0 [facility] Comment on above: Performed By: #### C MP #### [facility] [address] [place] [address] Monocytes (Bld) [#/Vol] 1.3 10*3/uL Critically high 0.2-0. 8 [facility] Comment on above: Performed By: #### C MP #### [facility] [address] [place] [address] Monocytes/100 WBC (Bld) 8.3 % Normal [facility] Comment on above: Performed By: #### C MP #### [facility] [address] [place] [address] Neutrophils (Bld) [#/Vol] 11.1 10*3/uL Critically high 1.4-6.5 [facility] Comment on above: Performed By: #### C MP #### [facility] [address] [place] [address] Neutrophils/100 WBC (Bld) 71.4 % Normal [facility] Comment on above: Performed By: #### C MP #### [facility] [address] [place] [address] Platelets (Bld) [#/Vol] 375 10*3/uL Normal 130-400 [facility] Comment on above: Performed By: #### C MP #### [facility] [address] [place] [address] RBC (Bld) [#/Vol] 3.57 10*6/uL Low 4.20-5.40 [facility] Comment on above: Performed By: #### C MP #### [facility] [address] [place] [address] WBC (Bld) [#/Vol] 15.5 10*3/uL Critically high 4.8-10.8 [facility] Comment on above: Performed By: #### C MP #### [facility] [address] [place] [address] High Sensitivity CRPon 11-17 High Sensitivity CRP 230.1 mg/L Critically high 0.0-5.0 [facility] Comment on above: Performed By: #### C MP #### [facility] [address] [place] [address] High sensitivity CRPon 11-17 CRP High Sensitivity 230.1 mg/L High 0 - 5 mg/L [place] Interpretation and review of laboratory results Abnormal [place] Sedimentation Rateon 2 019 Sedimentation Rate 50 mm Critically high 0-30 [facility] Comment on above: Performed By: #### C MP #### [facility] [address] [place] [address] Interpretation and review of laboratory results Abnormal [place] Sed Rate 50 mm High 0 - 30 mm [place] DUP LOWER EXTREMITIES VAUGHN ATERAL VENOUSon 11-17-2018 NO DVT IDENTIFIED IN EITHER LOWER EXTREMITY. [place] Incoming Radiant Results From [employer] - 11/17/2018 8:05 AM EDT US DUP [...] NO DVT IDENTIFIED IN EITHER LOWER EXTREMITY. [place] DUP LOWER EXTREMITIES BILATERAL VENOUS : 11/16/2018 CLINICAL HISTORY: LEG SWELLING, PAIN, DVT SUSPECTED . COMPARISON: None available. Grayscale, compression, color and waveform Doppler analysis of both lower extremity deep venous systems was performed with augmentation. FINDINGS: There is no deep venous thrombosis, abnormal masses, fluid collections or other findings of concern identified within either lower extremity. [place] Urine Cultureon 11-17-2018 Bacteria identified Cx Nom (U) No growth 24 hours [place], [place] ORDERED BY: ADDY COKER SOURCE: Urine Clean Catch COLLECTED: 11/15/18 19:05 ANTIBIOTICS AT DI.: RECEIVED : 11/15/18 19:05 [place] CBC With Platelet and Differ entialon 11-16-2018 Neutrophils (Bld) [#/Vol] 15.5 10*3/uL Critically high 1.4-6.5 [facility] Comment on above: Performed By: #### P TT #### [facility] [address] [place] [address] Basophils (Bld) [#/Vol] 0.2 10*3/uL Normal 0.0-0.2 [place] Comment on above: Performed By: #### P TT #### [facility] [address] [place] [address] Basophils/100 WBC (Bld) 0.9 % Normal [place] Comment on above: Performed By: #### P TT #### [facility] [address] [place] [address] Eosinophils (Bld) [#/Vol] 0.1 10*3/uL Normal 0.0-0.7 [place] Comment on above: Performed By: #### P TT #### [facility] [address] [place] [address] Eosinophils/100 WBC (Bld) 0.8 % Normal [place] Comment on above: Performed By: #### P TT #### [facility] [address] [place] [address] Erythrocyte distribution width (RBC) [Ratio] 14.4 % Normal 11.5-14.5 [place] Comment on above: Performed By: #### P TT #### [facility] [address] [place] [address] Hematocrit (Bld) [Volume fraction] 33.4 % Low 37.0-47.0 [place] Comment on above: Performed By: #### P TT #### [facility] [address] [place] [address] Hemoglobin (Bld) [Mass/Vol] 11.0 g/dL Low 12.0-16.0 [place] Comment on above: Performed By: #### P TT #### [facility] [address] [place] [address] Lymphocytes (Bld) [#/Vol] 1.5 10*3/uL Normal 1.0-4.8 [place] Comment on above: Performed By: #### P TT #### [facility] [address] [place] [address] Lymphocytes/100 WBC (Bld) 7.9 % Normal [place] Comment on above: Performed By: #### P TT #### [facility] [address] [place] [address] MCH (RBC) [Entitic mass] 29.4 pg Normal 27.0-31.3 [place] Comment on above: Performed By: #### P TT #### [facility] [address] [place] [address] MCHC (RBC) [Mass/Vol] 32.9 % Low 33.0-37.0 [place] Comment on above: Performed By: #### P TT #### [facility] [address] [place] [address] MCV (RBC) [Entitic vol] 89.4 fL Normal 82.0-100.0 [place] Comment on above: Performed By: #### P TT #### [facility] [address] [place] [address] Monocytes (Bld) [#/Vol] 1.3 10*3/uL Critically high 0.2-0. 8 [place] Comment on above: Performed By: #### P TT #### [facility] [address] [place] [address] Monocytes/100 WBC (Bld) 7.1 % Normal [place] Comment on above: Performed By: #### P TT #### [facility] [address] [place] [address] Neutrophils/100 WBC (Bld) 83.3 % Normal [place] Comment on above: Performed By: #### P TT #### [facility] [address] [place] [address] Platelets (Bld) [#/Vol] 304 10*3/uL Normal 130-400 [place] Comment on above: Performed By: #### P TT #### [facility] [address] [place] [address] RBC (Bld) [#/Vol] 3.74 10*6/uL Low 4.20-5.40 [place] Comment on above: Performed By: #### P TT #### [facility] [address] [facility] [address] WBC (Bld) [#/Vol] 18.6 10*3/uL Critically high 4.8-10.8 [place] Comment on above: Performed By: #### P TT #### [facility] [address] [facility] [address] CBC auto differentialon 10-22 Interpretation and review of laboratory results Abnormal [place] Neutrophils Absolute 15.5 K/uL High 1.4 - 6 .5 K/uL [place] ECHO Complete 2D W Doppler W Coloron 11-16-2018 Transthoracic Echocardiography Report (TTE) Demographics Patient Name MERCY GANDHI Gender Female Patient Number [id number] Race Unknown Ethnicity Visit Number [id number] Room Number R238 Corporate ID Date of Study 11/16/2018 Referring Physician Niki Vazquez DO Number Date of 1935 [address] Age 83 year(s) Interpreting [facility] Physician Cardiology Cain Quinonez MD Procedure [...] Root: 2.35 cm LVOT Diameter: 1.65 cm [facility]- [place], [place] Joseph, Chpo Incoming Cardiovascular Results From [facility] - 11/16/2018 5:05 PM EDT Transthoracic Echocardiography Report (TTE) Demographics Patient Name MADRID HIRAM Gender Female Patient Number [id number] Race Unknown Ethnicity Visit Number [id number] Room Number R238 Corporate ID Date of Study 11/16/2018 Referring Physician DO Natalia Dickens Date of 1935 [employer] 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 Age 83 year(s) Interpreting [facility] Physician Cardiology Cain Quinonez MD Procedure [...] Root: 2.35 cm LVOT Diameter: 1.65 cm [place] Microscopic Urinalysison Bacteria, UA Negative /HPF [place] Epi Cells 3-5 /HPF [place] Interpretation and review of laboratory results Abnormal [place] RBC (U) [#/Vol] 3-5 Abnormal [place] Renal Epithelial, Urine 0-2 Abnormal /HPF [place] WBC, UA None seen [place] CAROTID ARTERY BILATERALo n 11-16-2018 [...] Damped resistive CCA decreased decreased resistive CCA [place] Incoming Radiant Results From [employer] - 11/16/2018 10:40 AM EDT Patient : [...] Damped resistive CCA decreased decreased resistive CCA [facility] [place] Patient 5 : 1935 Age: 83 years [...] and noncalcified plaque bilateral carotid arterial systems [place] US DUP LOWER EXTREMITIES VAUGHN ATERAL [...] De Souza MD 11/17/18 Final result [facility] Urine Microscopicon 11-17-19 19 Bacteria LM.HPF (Urine sed) [#/Area] Negative [facility] Comment on above: Performed By: #### P TT #### [facility] [address] [place] [address] Epithelial cells LM Ql (Urine sed) 3-5 [facility] Comment on above: Performed By: #### P TT #### [facility] [address] [place] [address] RBC (U) [#/Vol] 3-5 Abnormal 0-2 [facility] Comment on above: Performed By: #### P TT #### [facility] [address] [place] [address] Urine Renal Epithelial 0-2 Abnormal [facility] Comment on above: Performed By: #### P TT #### [facility] [address] [place] [address] WBC (U) [#/Vol] None seen Normal 0-5 [facility] Comment on above: Performed By: #### P TT #### [facility] [address] [place] [address] XR CHEST PORTABLEon 11-17-19 19 Joseph, Chpo Incoming Radiant Results From [employer] - 11/16/2018 10:21 AM EDT EXAMINATION: XR CHEST PORTABLE CLINICAL HISTORY: fever . History of back surgery. COMPARISONS: None available. FINDINGS: Single AP portable view the chest obtained on November 15, 2018 at 2124 hours. The heart is not enlarged. Mediastinum is not widened. Calcified aorta is not dilated. Lungs are clear. The chest wall is unremarkable. CONCLUSION: NO ACUTE PROCESS [place] EXAMINATION: XR CHES T PORTABLE CLINICAL HISTORY: fever . History of back surgery. COMPARISONS: None available. FINDINGS: Single AP portable view the chest obtained on November 15, 2018 at 2124 hours. The heart is not enlarged. Mediastinum is not widened. Calcified aorta is not dilated. Lungs are clear. The chest wall is unremarkable. CONCLUSION: NO ACUTE PROCESS [place] CBC Auto Differentialon 10-22 Anisocytosis Ql (Bld) 1+ [place] Bands Relative 4 % Low 5 - 11 % [place] Basophils (Bld) [#/Vol] 0.0 10*3/uL 0 - 0.2 K/uL [place] Basophils/100 WBC (Bld) 0.6 % [place] Eosinophils (Bld) [#/Vol] 0.0 10*3/uL 0 - 0.7 K/uL [place] Eosinophils/100 WBC (Bld) 0.9 % [place] Erythrocyte distribution width (RBC) [Ratio] 14.6 % High 11.5 - 14.5 % [place] Hematocrit (Bld) [Volume fraction] 33.3 % Low 37 - 47 % [place] Hemoglobin (Bld) [Mass/Vol] 10.9 g/dL Low 12 - 16 g/dL [place] Interpretation and review of laboratory results Abnormal [place] Lymphocytes (Bld) [#/Vol] 3.5 10*3/uL 1 - 4.8 K/uL [place] Lymphocytes/100 WBC (Bld) 17.0 % [place] MCH (RBC) [Entitic mass] 29.8 pg 27 - 31.3 pg [place] MCHC (RBC) [Mass/Vol] 32.9 % Low 33 - 37 % [place] MCV (RBC) [Entitic vol] 90.7 fL 82 - 100 fL [place] Microcytes 1+ [place] Monocytes (Bld) [#/Vol] 0.0 10*3/uL Low 0.2 - 0.8 K/uL [place] Monocytes/100 WBC (Bld) 7.7 % [place] Neutrophils Absolute 17.3 K/uL High 1.4 - 6 .5 K/uL [place] Neutrophils/100 WBC (Bld) 79.0 % [place] PLATELET SLIDE REVIEW Normal [place], [place] Platelets (Bld) [#/Vol] 315 10*3/uL 130 - 400 K/uL [place] RBC (Bld) [#/Vol] 3.67 10*6/uL Low [place] WBC (Bld) [#/Vol] 20.8 10*3/uL High 4.8 - 10.8 K/uL [place] CBC With Platelet No Differe ntialon 11-15-2018 Erythrocyte distribution width (RBC) [Ratio] 14.5 % Normal 11.5-14.5 [facility] Comment on above: Performed By: #### P TT #### [facility] [address] [place] [address] Hematocrit (Bld) [Volume fraction] 36.9 % Low 37.0-47.0 [facility] Comment on above: Performed By: #### P TT #### [facility] [address] [place] [address] Hemoglobin (Bld) [Mass/Vol] 11.9 g/dL Low 12.0-16.0 [facility] Comment on above: Performed By: #### P TT #### [facility] [address] [place] [address] MCH (RBC) [Entitic mass] 29.4 pg Normal 27.0-31.3 [facility] Comment on above: Performed By: #### P TT #### [facility] [address] [place] [address] MCHC (RBC) [Mass/Vol] 32.3 % Low 33.0-37.0 [facility] Comment on above: Performed By: #### P TT #### [facility] [address] [place] [address] MCV (RBC) [Entitic vol] 91.1 fL Normal 82.0-100.0 [facility] Comment on above: Performed By: #### P TT #### [facility] [address] [place] [address] Platelets (Bld) [#/Vol] 341 10*3/uL Normal 130-400 [facility] Comment on above: Performed By: #### P TT #### [facility] [address] [place] [address] RBC (Bld) [#/Vol] 4.05 10*6/uL Low 4.20-5.40 [facility] Comment on above: Performed By: #### P TT #### [facility] [address] [place] [address] WBC (Bld) [#/Vol] 19.8 10*3/uL Critically high 4.8-10.8 [facility] Comment on above: Performed By: #### P TT #### [facility] [address] [place] [address] CBC With Platelet and Differ entialon 11-15-2018 Anisocytosis Ql (Bld) 1+ Normal [facility] Comment on above: Performed By: #### P TT #### [facility] [address] [place] [address] Bands 4 % Low 5-11 [facility] Comment on above: Performed By: #### P TT #### [facility] [address] [place] [address] Basophils (Bld) [#/Vol] 0.0 10*3/uL Normal 0.0-0.2 [facility] Comment on above: Performed By: #### P TT #### [facility] [address] [place] [address] Basophils/100 WBC (Bld) 0.6 % Normal [facility] Comment on above: Performed By: #### P TT #### [facility] [address] [place] [address] Eosinophils (Bld) [#/Vol] 0.0 10*3/uL Normal 0.0-0.7 [facility] Comment on above: Performed By: #### P TT #### [facility] [address] [place] [address] Eosinophils/100 WBC (Bld) 0.9 % Normal [facility] Comment on above: Performed By: #### P TT #### [facility] [address] [place] [address] Lymphocytes (Bld) [#/Vol] 3.5 10*3/uL Normal 1.0-4.8 [facility] Comment on above: Performed By: #### P TT #### [facility] [address] [place] [address] Lymphocytes/100 WBC (Bld) 17.0 % Normal [facility] Comment on above: Performed By: #### P TT #### [facility] [address] [place] [address] Microcytic 1+ Normal [facility] Comment on above: Performed By: #### P TT #### [facility] [address] [place] [address] Monocytes (Bld) [#/Vol] 0.0 10*3/uL Low 0.2-0.8 [facility] Comment on above: Performed By: #### P TT #### [facility] [address] [place] [address] Monocytes/100 WBC (Bld) 7.7 % Normal [facility] Comment on above: Performed By: #### P TT #### [facility] [address] [place] [address] Neutrophils (Bld) [#/Vol] 17.3 10*3/uL Critically high 1.4-6.5 [facility] Comment on above: Performed By: #### P TT #### [facility] [address] [place] [address] Neutrophils/100 WBC (Bld) 79.0 % Normal [facility] Comment on above: Performed By: #### P TT #### [facility] [address] [place] [address] Platelet Slide Review Normal Normal [facility] Comment on above: Performed By: #### P TT #### [facility] [address] [place] [address] Erythrocyte distribution width (RBC) [Ratio] 14.6 % Critically high 11.5-14.5 [facility] Comment on above: Performed By: #### P TT #### [facility] [address] [place] [address] Hematocrit (Bld) [Volume fraction] 33.3 % Low 37.0-47.0 [facility] Comment on above: Performed By: #### P TT #### [facility] [address] [place] [address] Hemoglobin (Bld) [Mass/Vol] 10.9 g/dL Low 12.0-16.0 [facility] Comment on above: Performed By: #### P TT #### [facility] [address] [place] [address] MCH (RBC) [Entitic mass] 29.8 pg Normal 27.0-31.3 [facility] Comment on above: Performed By: #### P TT #### [facility] [address] [place] [address] MCHC (RBC) [Mass/Vol] 32.9 % Low 33.0-37.0 [facility] Comment on above: Performed By: #### P TT #### [facility] [address] [place] [address] MCV (RBC) [Entitic vol] 90.7 fL Normal 82.0-100.0 [facility] Comment on above: Performed By: #### P TT #### [facility] [address] [place] [address] Platelets (Bld) [#/Vol] 315 10*3/uL Normal 130-400 [facility] Comment on above: Performed By: #### P TT #### [facility] [address] [place] [address] RBC (Bld) [#/Vol] 3.67 10*6/uL Low 4.20-5.40 [facility] Comment on above: Performed By: #### P TT #### [facility] [address] [place] [address] WBC (Bld) [#/Vol] 20.8 10*3/uL Critically high 4.8-10.8 [facility] Comment on above: Performed By: #### P TT #### [facility] [address] [place] [address] Comprehensive Metabolic Pane l reflex Mgon 11-15-2018 Albumin [Mass/Vol] 3.3 g/dL Low 3.5-4.6 [facility] Comment on above: Performed By: #### P TT #### [facility] [address] [place] [address] ALP [Catalytic activity/Vol] 71 U/L Normal 40-130 [facility] Comment on above: Performed By: #### P TT #### [facility] [address] [place] [address] ALT [Catalytic activity/Vol] 12 U/L Normal 0-33 [facility] Comment on above: Performed By: #### P TT #### [facility] [address] [place] [address] Anion gap [Moles/Vol] 11 mmol/L Normal 9-15 [facility] Comment on above: Performed By: #### P TT #### [facility] [address] [place] [address] AST [Catalytic activity/Vol] 28 U/L Normal 0-35 [facility] Comment on above: Performed By: #### P TT #### [facility] [address] [place] [address] Bilirubin [Mass/Vol] 0.4 mg/dL Normal 0.2-0.7 [facility] Comment on above: Performed By: #### P TT #### [facility] [address] [place] [address] Calcium [Mass/Vol] 9.1 mg/dL Normal 8.5-9.9 [facility] Comment on above: Performed By: #### P TT #### [facility] [address] [place] [address] Chloride [Moles/Vol] 98 mmol/L Normal 95-107 [facility] Comment on above: Performed By: #### P TT #### [facility] [address] [place] [address] CO2 [Moles/Vol] 27 mmol/L Normal 20-31 [facility] Comment on above: Performed By: #### P TT #### [facility] [address] [place] [address] Creatinine [Mass/Vol] 0.59 mg/dL Normal 0.50-0.90 [facility] Comment on above: Performed By: #### P TT #### [facility] [address] [place] [address] GFR/1.73 sq M predicted among blacks MDRD (S/P/Bld) [Vol rate/Area] mL/min/{1.73_m2} Normal >60 [facility] Comment on above: Result Comment: >60 mL/min/1.73m2 EGFR, calc. for ages 18 and older using the MDRD formula (not corrected for weight), is valid for stable renal function. Performed By: #### P TT #### [facility] [address] [place] [address] GFR/1.73 sq M.predicted MDRD (S/P/Bld) [Vol rate/Area] mL/min/{1.73_m2} Normal >60 [facility] Comment on above: Result Comment: >60 mL/min/1.73m2 EGFR, calc. for ages 18 and older using the MDRD formula (not corrected for weight), is valid for stable renal function. Performed By: #### P TT #### [facility] [address] [place] [address] Globulin (S) [Mass/Vol] 3.2 g/dL Normal 2.3-3.5 [facility] Comment on above: Performed By: #### P TT #### [facility] [address] [place] [address] Glucose [Mass/Vol] 123 mg/dL Critically high 70-99 [facility] Comment on above: Performed By: #### P TT #### [facility] [address] [place] [address] Potassium reflex Mg 3.8 mEq/L Normal 3.4-4.9 [facility] Comment on above: Performed By: #### P TT #### [facility] [address] [place] [address] Protein [Mass/Vol] 6.5 g/dL Normal 6.3-8.0 [facility] Comment on above: Performed By: #### P TT #### [facility] [address] [place] [address] Sodium [Moles/Vol] 136 mmol/L Normal 135-144 [facility] Comment on above: Performed By: #### P TT #### [facility] [address] [place] [address] Urea nitrogen [Mass/Vol] 6 mg/dL Low 8-23 [facility] Comment on above: Performed By: #### P TT #### [facility] [address] [place] [address] Culture, Blood 2on 9 Culture, Blood 2 ORDERED BY: ADDY COKER SOURCE: Blood COLLECTED: 11/15/18 16:37 ANTIBIOTICS AT DI.: RECEIVED : 11/15/18 16:42 Culture, Blood 2 FINAL 11/20/18 18:15 No growth after 5 days of incubation. Normal [facility] Comment on above: Performed By: #### C MP #### [facility] [address] [place] [address] Culture, Urineon 11-15-2018 Culture, Urine ORDERED BY: ADDY COKER SOURCE: Urine Clean Catch COLLECTED: 11/15/18 19:05 ANTIBIOTICS AT DI.: RECEIVED : 11/15/18 19:05 Culture, Urine FINAL 11/17/18 07:28 No growth 24 hours Normal [facility] Comment on above: Performed By: #### C MP #### [facility] [address] [place] [address] URINE RT REFLEX TO CULTUREon 11-15-2018 Bilirubin Urine Negative Negative [place] Blood, Urine TRACE Abnormal Negative [place] Clarity, UA Clear Clear [place] Color, UA Yellow Straw/Yello w [place] Glucose, Ur Negative Negative mg/dL [place] Interpretation and review of laboratory results Abnormal [place] Ketones Ql (U) Negative Negative mg/dL [place] Leukocyte esterase Test strip Ql (U) Negative Negative [place] Nitrite, Urine Negative Negative [place] pH, UA 7.0 [place] Protein (U) [Mass/Vol] 30 mg/dL Abnormal Negative [place] Specific [place], UA 1.014 [place], [place] Urine Reflex to Culture YES [place] Urobilinogen, Urine 0.2 <2.0 E.U./dL [place] US CAROTID ARTERY BILATERALo n 11-15-2018 [...] Mohsen Childers MD 11/16/18 Final result [facility] Urinalysis, reflex to cultur kendall 11-15-2018 Bilirubin Ql (U) Negative Normal Negative [facility] Comment on above: Performed By: #### P TT #### [facility] [address] [place] [address] Clarity (U) Clear Normal Clear [facility] Comment on above: Performed By: #### P TT #### [facility] [address] [place] [address] Color (U) Yellow Normal [facility] Comment on above: Performed By: #### P TT #### [facility] [address] [place] [address] Glucose Ql (U) Negative Normal Negative [facility] Comment on above: Performed By: #### P TT #### [facility] [address] [place] [address] Hemoglobin Ql (U) TRACE Abnormal Negative [facility] Comment on above: Performed By: #### P TT #### [facility] [address] [place] [address] Ketones Ql (U) Negative Normal Negative [facility] Comment on above: Performed By: #### P TT #### [facility] [address] [place] [address] Leukocyte esterase Test strip Ql (U) Negative Normal Negative [facility] Comment on above: Performed By: #### P TT #### [facility] [address] [place] [address] Nitrite Ql (U) Negative Normal Negative [facility] Comment on above: Performed By: #### P TT #### [facility] [address] [place] [address] pH (U) 7.0 [pH] Normal 5.0-9.0 [facility] Comment on above: Performed By: #### P TT #### [facility] [address] [place] [address] Protein Ql (U) 30 mg/dL Abnormal Negative [facility] Comment on above: Performed By: #### P TT #### [facility] [address] [place] [address] Specific gravity (U) [Rel density] 1.014 Normal 1.005-1.03 [facility] Comment on above: Performed By: #### P TT #### [facility] [address] [place] [address] Urine Reflexed to Culture YES Normal [facility] Comment on above: Performed By: #### P TT #### [facility] [address] [place] [address] Urobilinogen Qn (U) 0.2 {Juan'U}/dL Normal < 2.0 [facility] Comment on above: Performed By: #### P TT #### [facility] [address] [place] [address] XR CHEST PORTABLEon 11-16-19 19 XR CHEST [...] Pearl Varghese MD 11/16/18 Final result [facility] Basic Metabolic Panel Reflex Mgon 11-14-2018 Anion gap [Moles/Vol] 10 mmol/L Normal 9-15 [facility] Comment on above: Performed By: #### P T #### [facility] [address] [place] [address] Calcium [Mass/Vol] 8.4 mg/dL Low 8.5-9.9 [facility] Comment on above: Performed By: #### P T #### [facility] [address] [place] [address] Chloride [Moles/Vol] 100 mmol/L Normal 95-107 [facility] Comment on above: Performed By: #### P T #### [facility] [address] [place] [address] CO2 [Moles/Vol] 25 mmol/L Normal 20-31 [facility] Comment on above: Performed By: #### P T #### [facility] [address] [place] [address] Creatinine [Mass/Vol] 0.66 mg/dL Normal 0.50-0.90 [facility] Comment on above: Performed By: #### P T #### [facility] [address] [place] [address] GFR/1.73 sq M predicted among blacks MDRD (S/P/Bld) [Vol rate/Area] mL/min/{1.73_m2} Normal >60 [facility] Comment on above: Result Comment: >60 mL/min/1.73m2 EGFR, calc. for ages 18 and older using the MDRD formula (not corrected for weight), is valid for stable renal function. Performed By: #### P T #### [facility] [address] [place] [address] GFR/1.73 sq M.predicted MDRD (S/P/Bld) [Vol rate/Area] mL/min/{1.73_m2} Normal >60 [facility] Comment on above: Result Comment: >60 mL/min/1.73m2 EGFR, calc. for ages 18 and older using the MDRD formula (not corrected for weight), is valid for stable renal function. Performed By: #### P T #### [facility] [address] [place] [address] Glucose [Mass/Vol] 144 mg/dL Critically high 70-99 [facility] Comment on above: Performed By: #### P T #### [facility] [address] [place] [address] Potassium reflex Mg 4.1 mEq/L Normal 3.4-4.9 [facility] Comment on above: Performed By: #### P T #### [facility] [address] [place] [address] Sodium [Moles/Vol] 135 mmol/L Normal 135-144 [facility] Comment on above: Performed By: #### P T #### [facility] [address] [place] [address] Urea nitrogen [Mass/Vol] 6 mg/dL Low 8-23 [facility] Comment on above: Performed By: #### P T #### [facility] [address] [place] [address] CBC With Platelet and Differ entialon 11-14-2018 Basophils (Bld) [#/Vol] 0.1 10*3/uL Normal 0.0-0.2 [facility] Comment on above: Performed By: #### P T #### [facility] [address] [place] [address] Basophils/100 WBC (Bld) 0.5 % Normal [facility] Comment on above: Performed By: #### P T #### [facility] [address] [place] [address] Eosinophils (Bld) [#/Vol] 0.1 10*3/uL Normal 0.0-0.7 [facility] Comment on above: Performed By: #### P T #### [facility] [address] [place] [address] Eosinophils/100 WBC (Bld) 0.8 % Normal [facility] Comment on above: Performed By: #### P T #### [facility] [address] [place] [address] Erythrocyte distribution width (RBC) [Ratio] 14.1 % Normal 11.5-14.5 [facility] Comment on above: Performed By: #### P T #### [facility] [address] [place] [address] Hematocrit (Bld) [Volume fraction] 35.4 % Low 37.0-47.0 [facility] Comment on above: Performed By: #### P T #### [facility] [address] [place] [address] Hemoglobin (Bld) [Mass/Vol] 11.7 g/dL Low 12.0-16.0 [facility] Comment on above: Performed By: #### P T #### [facility] [address] [place] [address] Lymphocytes (Bld) [#/Vol] 2.7 10*3/uL Normal 1.0-4.8 [facility] Comment on above: Performed By: #### P T #### [facility] [address] [place] [address] Lymphocytes/100 WBC (Bld) 15.7 % Normal [facility] Comment on above: Performed By: #### P T #### [facility] [address] [place] [address] MCH (RBC) [Entitic mass] 29.7 pg Normal 27.0-31.3 [facility] Comment on above: Performed By: #### P T #### [facility] [address] [place] [address] MCHC (RBC) [Mass/Vol] 33.1 % Normal 33.0-37.0 [facility] Comment on above: Performed By: #### P T #### [facility] [address] [place] [address] MCV (RBC) [Entitic vol] 89.6 fL Normal 82.0-100.0 [facility] Comment on above: Performed By: #### P T #### [facility] [address] [place] [address] Monocytes (Bld) [#/Vol] 1.4 10*3/uL Critically high 0.2-0. 8 [facility] Comment on above: Performed By: #### P T #### [facility] [address] [place] [address] Monocytes/100 WBC (Bld) 7.9 % Normal [facility] Comment on above: Performed By: #### P T #### [facility] [address] [place] [address] Neutrophils (Bld) [#/Vol] 12.8 10*3/uL Critically high 1.4-6.5 [facility] Comment on above: Performed By: #### P T #### [facility] [address] [place] [address] Neutrophils/100 WBC (Bld) 75.1 % Normal [facility] Comment on above: Performed By: #### P T #### [facility] [address] [place] [address] Platelets (Bld) [#/Vol] 345 10*3/uL Normal 130-400 [facility] Comment on above: Performed By: #### P T #### [facility] [address] [place] [address] RBC (Bld) [#/Vol] 3.95 10*6/uL Low 4.20-5.40 [facility] Comment on above: Performed By: #### P T #### [facility] [address] [place] [address] WBC (Bld) [#/Vol] 17.0 10*3/uL Critically high 4.8-10.8 [facility] Comment on above: Performed By: #### P T #### [facility] [address] [place] [address] POCT Glucoseon 11-14-2018 Glucose [Mass/Vol] 116 mg/dL Critically high 60-115 [facility] Comment on above: Performed By: #### P T #### [facility] [address] [place] [address] POC Performed on ACCU-CHEK Normal [facility] Comment on above: Performed By: #### P T #### [facility] [address] [place] [address] XR LUMBAR SPINE (2-3 VIEWS)o n 11-14-2018 [...] Mohsen Childers MD 11/14/18 Final result [facility] Basic Metabolic Panel Reflex Mgon 11-13-2018 Anion gap [Moles/Vol] 13 mmol/L Normal 9-15 [facility] Comment on above: Performed By: #### P T #### [facility] [address] [place] [address] Calcium [Mass/Vol] 9.0 mg/dL Normal 8.5-9.9 [facility] Comment on above: Performed By: #### P T #### [facility] [address] [place] [address] Chloride [Moles/Vol] 101 mmol/L Normal 95-107 [facility] Comment on above: Performed By: #### P T #### [facility] [address] [place] [address] CO2 [Moles/Vol] 24 mmol/L Normal 20-31 [facility] Comment on above: Performed By: #### P T #### [facility] [address] [place] [address] Creatinine [Mass/Vol] 0.62 mg/dL Normal 0.50-0.90 [facility] Comment on above: Performed By: #### P T #### [facility] [address] [place] [address] GFR/1.73 sq M predicted among blacks MDRD (S/P/Bld) [Vol rate/Area] mL/min/{1.73_m2} Normal >60 [facility] Comment on above: Result Comment: >60 mL/min/1.73m2 EGFR, calc. for ages 18 and older using the MDRD formula (not corrected for weight), is valid for stable renal function. Performed By: #### P T #### [facility] [address] [place] [address] GFR/1.73 sq M.predicted MDRD (S/P/Bld) [Vol rate/Area] mL/min/{1.73_m2} Normal >60 [facility] Comment on above: Result Comment: >60 mL/min/1.73m2 EGFR, calc. for ages 18 and older using the MDRD formula (not corrected for weight), is valid for stable renal function. Performed By: #### P T #### [facility] [address] [place] [address] Glucose [Mass/Vol] 136 mg/dL Critically high 70-99 [facility] Comment on above: Performed By: #### P T #### [facility] [address] [place] [address] Potassium reflex Mg 3.6 mEq/L Normal 3.4-4.9 [facility] Comment on above: Performed By: #### P T #### [facility] [address] [place] [address] Sodium [Moles/Vol] 138 mmol/L Normal 135-144 [facility] Comment on above: Performed By: #### P T #### [facility] [address] [place] [address] Urea nitrogen [Mass/Vol] 7 mg/dL Low 8-23 [facility] Comment on above: Performed By: #### P T #### [facility] [address] [place] [address] CBC With Platelet No Differe ntialon 11-13-2018 Erythrocyte distribution width (RBC) [Ratio] 14.2 % Normal 11.5-14.5 [facility] Comment on above: Performed By: #### P T #### [facility] [address] [place] [address] Hematocrit (Bld) [Volume fraction] 40.3 % Normal 37.0-47.0 [facility] Comment on above: Performed By: #### P T #### [facility] [address] [place] [address] Hemoglobin (Bld) [Mass/Vol] 13.1 g/dL Normal 12.0-16.0 [facility] Comment on above: Performed By: #### P T #### [facility] [address] [place] [address] MCH (RBC) [Entitic mass] 29.1 pg Normal 27.0-31.3 [facility] Comment on above: Performed By: #### P T #### [facility] [address] [place] [address] MCHC (RBC) [Mass/Vol] 32.4 % Low 33.0-37.0 [facility] Comment on above: Performed By: #### P T #### [facility] [address] [place] [address] MCV (RBC) [Entitic vol] 89.9 fL Normal 82.0-100.0 [facility] Comment on above: Performed By: #### P T #### [facility] [address] [place] [address] Platelets (Bld) [#/Vol] 394 10*3/uL Normal 130-400 [facility] Comment on above: Performed By: #### P T #### [facility] [address] [place] [address] RBC (Bld) [#/Vol] 4.48 10*6/uL Normal 4.20-5.40 [facility] Comment on above: Performed By: #### P T #### [facility] [address] [place] [address] WBC (Bld) [#/Vol] 11.8 10*3/uL Critically high 4.8-10.8 [facility] Comment on above: Performed By: #### P T #### [facility] [address] [place] [address] Culture, MRSA Screenon 11-13 Culture, MRSA Screen ORDERED BY: BRENNAN HERRON SOURCE: Nares COLLECTED: 11/13/18 09:29 ANTIBIOTICS AT DI.: RECEIVED : 11/13/18 09:29 Culture, MRSA Screen FINAL 11/14/18 08:02 No MRSA isolated Normal [facility] Comment on above: Performed By: #### P T #### [facility] [address] [place] [id number] FLUORO FOR SURGICAL PROCEDUR ESon 11-13-2018 FLUORO [...] Mohsen Childers MD 11/13/18 Final result [facility] Surgical Specimenon 11-14-19 19 Surgical Specimen [facility] [address] [place], [place] [address], [place] [id number] FINAL SURGICAL PATHOLOGY REPORT Patient Name: HIRAM MADRID Accession No: [id number] Age Sex: 1935 Location: [facility] [id number] Account No: [id number] Collected: 11/13/2018 Med Rec No: [id number] Received: 11/14/2018 Attend Phys: LENNY CORRAL Completed: [...] two cassettes after brief decalcification. UVALDO/NIKKY CPT: 97276 X1 [id number] X1 STANLEY GRAFF M.D. 11/15/2018 Electronically signed out by Page 1 of 1 [facility] Comment on above: Performed By: #### P TT #### [facility] [address] [place] [address] Type and Screen Capture 3 sc rn cellon 11-13-2018 Type and Screen Capture 3 scrn cell PATIENT: MERCY GANDHI LOC: ERICK,ORKAMRONOL,NON BILL# : [id number] : 1935 SEX: F ORDERED BY: GOPAL AMIN ORDERED : 11/13/2018 08:10 COLLECTED: 11/13/2018 09:24 ORDER : [id number] RECEIVED : 11/13/2018 09:24 TEST NAME RESULT UNITS RANGES ABN FL ST ABORH Capture A POS F Antibody 3 Cell Scrn Captu NEG F [facility] Comment on above: Performed By: #### T S3C #### [facility] [address] [place] [address] XR SPINE ENTIRE (2-3 VIEWS)o n 11-13-2018 [...] Mohsen Childers MD 11/13/18 Final result [facility] MRI LUMBAR SPINE W WO CONTRA [...] SIGNS OF UNDERLYING PATHOLOGY OR RECENT INJURY. [facility] [place], [place] Joseph, Chpo Incoming Radiant Results From [employer] - 11/05/2018 3:07 PM EDT EXAMINATION: MRI [...] SIGNS OF UNDERLYING PATHOLOGY OR RECENT INJURY. [facility], [place] MRI LUMBAR SPINE W WO CONTRAST EXAMINATION: [...] Pearl Varghese MD 11/05/18 Final result [facility] Otheron 11-05-2018 Joseph, Chpo Incoming Radiant Results From [employer] - 11/05/2018 1:21 PM EDT EXAMINATION: XR [...] AND POSTOPERATIVE FINDINGS, WITHOUT ACUTE SUPERIMPOSED ABNORMALITY. [place] EXAMINATION: XR LUMB AR SPINE (MIN [...] AND POSTOPERATIVE FINDINGS, WITHOUT ACUTE SUPERIMPOSED ABNORMALITY. [place] XR CHEST (2 VW)on 11-05-2018 XR [...] Pearl Varghese MD 11/05/18 Final result [facility] XR LUMBAR SPINE (MIN 4 VIEWS [...] Pearl Varghese MD 11/05/18 Final result [facility] APTTon 11-04-2018 aPTT Coag (Bld) [Time] 27.9 s [facility] [place], [place] Comment on above: Effective 09/06/2018: Please note methodology and/or reference ranges have changed. aPTT - Heparin Therapeutic Range: 74.0 - 106 seconds C-Reactive Proteinon 11-04- 019 CRP [Mass/Vol] 1.3 mg/L Normal 0.0-5.0 [facility] Comment on above: Performed By: #### C RP #### [facility] [address] [place] [address] CRP [Mass/Vol] 1.3 mg/L 0 - 5 mg/L [place] CBC Auto Differentialon 10-21 Basophils (Bld) [#/Vol] 0.1 10*3/uL 0 - 0.2 K/uL [place] Basophils/100 WBC (Bld) 1.1 % [place], [place] Eosinophils (Bld) [#/Vol] 0.2 10*3/uL 0 - 0.7 K/uL [place] Eosinophils/100 WBC (Bld) 1.3 % [place] Erythrocyte distribution width (RBC) [Ratio] 13.9 % 11.5 - 14.5 % [place] Hematocrit (Bld) [Volume fraction] 41.3 % 37 - 47 % [place] Hemoglobin (Bld) [Mass/Vol] 14.3 g/dL 12 - 16 g/dL [place] Interpretation and review of laboratory results Abnormal [place] Lymphocytes (Bld) [#/Vol] 3.5 10*3/uL 1 - 4.8 K/uL [place] Lymphocytes/100 WBC (Bld) 28.2 % [place] MCH (RBC) [Entitic mass] 30.5 pg 27 - 31.3 pg [place] MCHC (RBC) [Mass/Vol] 34.6 % 33 - 37 % [place] MCV (RBC) [Entitic vol] 88.0 fL 82 - 100 fL [place] Monocytes (Bld) [#/Vol] 0.8 10*3/uL 0.2 - 0.8 K/uL [place] Monocytes/100 WBC (Bld) 6.8 % [place] Neutrophils Absolute 7.7 K/uL High 1.4 - 6 .5 K/uL [place] Neutrophils/100 WBC (Bld) 62.6 % [place] Platelets (Bld) [#/Vol] 435 10*3/uL High 130 - 400 K/uL [place] RBC (Bld) [#/Vol] 4.69 10*6/uL [place] WBC (Bld) [#/Vol] 12.4 10*3/uL High 4.8 - 10.8 K/uL [place] CBC With Platelet and Differ entialon 11-04-2018 Basophils (Bld) [#/Vol] 0.1 10*3/uL Normal 0.0-0.2 [facility] Comment on above: Performed By: #### C BCWD #### [facility] [address] [place] [address] Basophils/100 WBC (Bld) 1.1 % Normal [facility] Comment on above: Performed By: #### C BCWD #### [facility] [address] [place] [address] Eosinophils (Bld) [#/Vol] 0.2 10*3/uL Normal 0.0-0.7 [facility] Comment on above: Performed By: #### C BCWD #### [facility] [address] [place] [address] Eosinophils/100 WBC (Bld) 1.3 % Normal [facility] Comment on above: Performed By: #### C BCWD #### [facility] [address] [place] [address] Erythrocyte distribution width (RBC) [Ratio] 13.9 % Normal 11.5-14.5 [facility] Comment on above: Performed By: #### C BCWD #### [facility] [address] [place] [address] Hematocrit (Bld) [Volume fraction] 41.3 % Normal 37.0-47.0 [facility] Comment on above: Performed By: #### C BCWD #### [facility] [address] [place] [address] Hemoglobin (Bld) [Mass/Vol] 14.3 g/dL Normal 12.0-16.0 [facility] Comment on above: Performed By: #### C BCWD #### [facility] [address] [place] [address] Lymphocytes (Bld) [#/Vol] 3.5 10*3/uL Normal 1.0-4.8 [facility] Comment on above: Performed By: #### C BCWD #### [facility] [address] [place] [address] Lymphocytes/100 WBC (Bld) 28.2 % Normal [facility] Comment on above: Performed By: #### C BCWD #### [facility] [address] [place] [address] MCH (RBC) [Entitic mass] 30.5 pg Normal 27.0-31.3 [facility] Comment on above: Performed By: #### C BCWD #### [facility] [address] [place] [address] MCHC (RBC) [Mass/Vol] 34.6 % Normal 33.0-37.0 [facility] Comment on above: Performed By: #### C BCWD #### [facility] [address] [place] [address] MCV (RBC) [Entitic vol] 88.0 fL Normal 82.0-100.0 [facility] Comment on above: Performed By: #### C BCWD #### [facility] [address] [place] [address] Monocytes (Bld) [#/Vol] 0.8 10*3/uL Normal 0.2-0.8 [facility] Comment on above: Performed By: #### C BCWD #### [facility] [address] [place] [address] Monocytes/100 WBC (Bld) 6.8 % Normal [facility] Comment on above: Performed By: #### C BCWD #### [facility] [address] [place] [address] Neutrophils (Bld) [#/Vol] 7.7 10*3/uL Critically high 1.4-6.5 [facility] Comment on above: Performed By: #### C BCWD #### [facility] [address] [place] [address] Neutrophils/100 WBC (Bld) 62.6 % Normal [facility] Comment on above: Performed By: #### C BCWD #### [facility] [address] [place] [address] Platelets (Bld) [#/Vol] 435 10*3/uL Critically high 130-40 0 [facility] Comment on above: Performed By: #### C BCWD #### [facility] [address] [place] [address] RBC (Bld) [#/Vol] 4.69 10*6/uL Normal 4.20-5.40 [facility] Comment on above: Performed By: #### C BCWD #### [facility] [address] [place] [address] WBC (Bld) [#/Vol] 12.4 10*3/uL Critically high 4.8-10.8 [facility] Comment on above: Performed By: #### C BCWD #### [facility] [address] [place] [address] Comprehensive Metabolic Pane bebeto 11-04-2018 Anion gap [Moles/Vol] 14 mmol/L Normal 9-15 [facility] Comment on above: Order Comment: CALL [facility] tel. [phone], Potassium results called to and read back by onofre Millan RN, 11/04/2018 16:24, by [employer] Performed By: #### C MP #### [facility] [address] [place] [address] Bilirubin [Mass/Vol] 0.4 mg/dL Normal 0.2-0.7 [facility] Comment on above: Order Comment: CALL [facility] tel. [phone], Potassium results called to and read back by onofre Millan RN, 11/04/2018 16:24, by [employer] Performed By: #### C MP #### [facility] [address] [place] [address] GFR/1.73 sq M predicted among blacks MDRD (S/P/Bld) [Vol rate/Area] mL/min/{1.73_m2} Normal >60 [facility] Comment on above: Order Comment: CALL [facility] tel. [phone], Potassium results called to and read back by onofre Millan RN, 11/04/2018 16:24, by [employer] Result Comment: >60 mL/min/1.73m2 EGFR, calc. for ages 18 and older using the MDRD formula (not corrected for weight), is valid for stable renal function. Performed By: #### C MP #### [facility] [address] [place] [address] GFR/1.73 sq M.predicted MDRD (S/P/Bld) [Vol rate/Area] mL/min/{1.73_m2} Normal >60 [facility] Comment on above: Order Comment: CALL [facility] tel. [phone], Potassium results called to and read back by onofre Millan RN, 11/04/2018 16:24, by [employer] Result Comment: >60 mL/min/1.73m2 EGFR, calc. for ages 18 and older using the MDRD formula (not corrected for weight), is valid for stable renal function. Performed By: #### C MP #### [facility] [address] [place] [address] Albumin [Mass/Vol] 4.5 g/dL Normal 3.5-4.6 [facility] [place] Comment on above: Order Comment: CALL [facility] tel. [phone], Potassium results called to and read back by onofre Millan RN, 11/04/2018 16:24, by [employer] Performed By: #### C MP #### [facility] [address] [place] [address] ALP [Catalytic activity/Vol] 76 U/L Normal 40-130 [facility] [place] Comment on above: Order Comment: CALL [facility] tel. [phone], Potassium results called to and read back by onofre Millan RN, 11/04/2018 16:24, by [employer] Performed By: #### C MP #### [facility] [address] [facility] [place] [address] ALT [Catalytic activity/Vol] 15 U/L Normal 0-33 [facility] [place] Comment on above: Order Comment: CALL [facility] tel. [phone], Potassium results called to and read back by onofre Millan RN, 11/04/2018 16:24, by [employer] Performed By: #### C MP #### [facility] [address] [facility] [place] [address] AST [Catalytic activity/Vol] 20 U/L Normal 0-35 [facility] [place] Comment on above: Order Comment: CALL [facility] tel. [phone], Potassium results called to and read back by onofre Millan RN, 11/04/2018 16:24, by WEBAM Performed By: #### C MP #### [facility] [address] [place] [address] Calcium [Mass/Vol] 9.9 mg/dL Normal 8.5-9.9 [facility], [place] Comment on above: Order Comment: CALL Graf LCED tel. [phone], Potassium results called to and read back by onofre Millan RN, 11/04/2018 16:24, by WEBAM Performed By: #### C MP #### [facility] [address] [place] [address] Chloride [Moles/Vol] 96 mmol/L Normal 95-107 [facility], [place] Comment on above: Order Comment: CALL Graf LCED tel. [phone], Potassium results called to and read back by onofre Millan RN, 11/04/2018 16:24, by WEBAM Performed By: #### C MP #### [facility] [address] [place] [address] CO2 [Moles/Vol] 24 mmol/L Normal 20-31 [place], [place] Comment on above: Order Comment: CALL Graf LCED tel. [phone], Potassium results called to and read back by onofre Millan RN, 11/04/2018 16:24, by WEBAM Performed By: #### C MP #### [facility] [address] [place] [address] Creatinine [Mass/Vol] 0.67 mg/dL Normal 0.50-0.90 [place], [place] Comment on above: Order Comment: CALL Graf LCED tel. [phone], Potassium results called to and read back by onofre Millan RN, 11/04/2018 16:24, by WEBAM Performed By: #### C MP #### [facility] [address] [place] [address] Globulin (S) [Mass/Vol] 2.8 g/dL Normal 2.3-3.5 [place], [place] Comment on above: Order Comment: CALL Graf LCED tel. [phone], Potassium results called to and read back by onofre Millan RN, 11/04/2018 16:24, by WEBAM Performed By: #### C MP #### [facility] [address] [place] [address] Glucose [Mass/Vol] 109 mg/dL Critically high 70-99 [place], [place] Comment on above: Order Comment: CALL Graf LCED tel. [phone], Potassium results called to and read back by onofre Millan RN, 11/04/2018 16:24, by WEBAM Performed By: #### C MP #### [facility] [address] [place] [address] Potassium [Moles/Vol] 3.0 mmol/L Critically low 3.4-4.9 [place], [place] Comment on above: Order Comment: CALL Graf LCED tel. [phone], Potassium results called to and read back by onofre Millan RN, 11/04/2018 16:24, by WEBAM Performed By: #### C MP #### [facility] [address] [place] [address] Protein [Mass/Vol] 7.3 g/dL Normal 6.3-8.0 [place] Comment on above: Order Comment: CALL Graf LCED tel. [phone], Potassium results called to and read back by onofre Millan RN, 11/04/2018 16:24, by WEBAM Performed By: #### C MP #### [facility] [address] [place] [address] Sodium [Moles/Vol] 134 mmol/L Low 135-144 [place], [place] Comment on above: Order Comment: CALL Graf ED tel. [phone], Potassium results called to and read back by onofre Millan RN, 11/04/2018 16:24, by WEBAM Performed By: #### C MP #### [facility] [address] [place] [address] Urea nitrogen [Mass/Vol] 8 mg/dL Normal 8-23 [place], [place] Comment on above: Order Comment: CALL Graf ED tel. [phone], Potassium results called to and read back by onofre Millan RN, 11/04/2018 16:24, by WEBAM Performed By: #### C MP #### [facility] [address] [facility] [address] Anion gap [Moles/Vol] 14 mmol/L [place], [place] Bilirubin Ql (U) 0.4 mg/dL 0.2 - 0.7 mg/dL [place], [place] GFR >60.0 >60 [place], [place] Comment on above: >60 mL/min/1.73m2 EG FR, calc. for ages 18 and older using the MDRD formula (not corrected for weight), is valid for stable renal function. GFR Non- >60.0 >60 [place], [place] Comment on above: >60 mL/min/1.73m2 EG FR, calc. for ages 18 and older using the MDRD formula (not corrected for weight), is valid for stable renal function. Interpretation and review of laboratory results Abnormal [place] Potassium [Moles/Vol] CALL Graf LCED tel . [phone], Potassium results called to and read back by onofre Millan RN, 11/04/2018 16:24, by TAMMY [place], [place] Partial Thromboplastin Timeo n 11-04-2018 aPTT Coag (Bld) [Time] 27.9 s Normal 24.4-36.8 [facility] Comment on above: Result Comment: Effe ctive 09/06/2018: Please note methodology and/or reference ranges have changed. aPTT - Heparin Therapeutic Range: 74.0 - 106 seconds Performed By: #### P TT #### [facility] [address] [facility] [address] Prothrombin Timeon 9 INR Coag (PPP) [Relative time] 0.9 {INR} [facility] Comment on above: Result Comment: Warf camden Therapy INR Therapeutic: 2.0-3.0 With Mechanical Valve: >2.5 Low-intensity Therapeutic Range: 1.5-2.0 Mod-intensity Therapeutic Range: 2.0-3.0 High-intensity Therapeutic Range: 2.5-3.5 HIgh-intensity Therapeutic Range: 3.0-4.0 Common Critical/Alarm Value: 5.0 Common Upper Limit Reported: 10.0 Effective 08/30/2018: Please note methodology and/or reference ranges have changed. Performed By: #### P T #### [facility] [address] [facility] [address] PT Coag (PPP) [Time] 12.1 s Low 12.3-14.9 [facility] Comment on above: Result Comment: Effe ctive 08/30/18 Please note methodology and/or reference ranges have changed. Performed By: #### P T #### [facility] [address] [place] [address] Protime-INRon 11-04-2018 INR Coag (PPP) [Relative time] 0.9 {INR} [place], [place] Comment on above: Warfarin Therapy IN R Therapeutic: 2.0-3.0 With Mechanical Valve: >2.5 Low-intensity Therapeutic Range: 1.5-2.0 Mod-intensity Therapeutic Range: 2.0-3.0 High-intensity Therapeutic Range: 2.5-3.5 HIgh-intensity Therapeutic Range: 3.0-4.0 Common Critical/Alarm Value: 5.0 Common Upper Limit Reported: 10.0 Effective 08/30/2018: Please note methodology and/or reference ranges have changed. Interpretation and review of laboratory results Abnormal [place], [place] PT Coag (PPP) [Time] 12.1 s Low [place], [place] Comment on above: Effective 08/30/18 Please note methodology and/or reference ranges have changed. Sedimentation Rateon 019 Sedimentation Rate 12 mm Normal 0-30 [facility] Comment on above: Performed By: #### E SR #### [facility] [address] [place] [address] Sed Rate 12 mm 0 - 30 mm [place], [place] Vital Signs Date Time Vital Sign Value Performing Clinician Ivonne ledesma 12-22-2022 11:40-0400 Blood Pressure Location MIKAYLA WEISS [facility] 12-22-2022 11:40-0400 Diastolic blood pressure 84 mm[Hg] MIKAYLA WEISS [facility] 12-22-2022 11:40-0400 Systolic blood pressure 124 mm[Hg] MIKAYLA WEISS [facility] 08-06-2022 00:10-0400 Body temperature 97.3 [degF] MD Addy Daniels Work Phone: [facility] 08-06-2022 00:10-0400 Diastolic blood pressure 74 mm[Hg] MD Addy Daniels Work Phone: [facility] 08-06-2022 00:10-0400 Heart rate 80 /min MD Addy Daniels Work Phone: [facility] 08-06-2022 00:10-0400 Respiratory rate 18 /min MD Addy Daniels Work Phone: [facility] 08-06-2022 00:10-0400 SaO2% (BldA) [Mass fraction] 96 % MD Addy Daniels Work Phone: [facility] 08-06-2022 00:10-0400 Systolic blood pressure 177 mm[Hg] MD Addy Daniels Work Phone: [facility] 08-05-2022 19:51-0400 Body height 154.94 cm MD Addy Daniels Work Phone: [facility] 08-05-2022 19:51-0400 Body weight 67.6 kg MD Addy Daniels Work Phone: [facility] 11-20-2018 07:02-0400 Body Temperature 97 [degF] [facility] [place] 11-20-2018 07:02-0400 BP Diastolic 61 mm[Hg] [facility] [place] 11-20-2018 07:02-0400 BP Systolic 153 mm[Hg] [facility] [place] 11-20-2018 07:02-0400 Pulse (Heart Rate) 75 /min [facility] [place] 11-20-2018 07:02-0400 Pulse Oximetry 97 % [facility] [place] 11-20-2018 07:02-0400 Respiratory Rate 17 /min [facility] [place] 11-17-2018 05:54-0400 BMI (Body Mass Index) 27.62 kg/m2 [facility] [place] 11-17-2018 05:54-0400 Body weight 66.3 kg Mary Vega [facility], [place] 11-15-2018 15:58-0400 Height 154.9 cm Mary Vega [facility], [place] 11-05-2018 07:30-0400 BP Diastolic 57 mm[Hg] [facility] , [place] 11-05-2018 07:30-0400 BP Systolic 135 mm[Hg] [facility] , [place] 11-05-2018 07:30-0400 Pulse (Heart Rate) 70 /min [facility], [place] 11-05-2018 07:30-0400 Pulse Oximetry 97 % [facility] , [place] 11-04-2018 20:06-0400 Body Temperature 98.4 [degF] [facility], [place] 11-04-2018 20:06-0400 Respiratory Rate 16 /min [facility], [place] 11-04-2018 14:56-0400 BMI (Body Mass Index) 27.4 kg/m2 [facility], [place] 11-04-2018 14:56-0400 Body weight 65.77 kg [facility] , [place] 11-04-2018 14:56-0400 Height 154.9 cm [facility] , [place] Encounters Encounter Date Encounter Type Care Provider Facility Start: 06-29-2023 ambulatory MIKAYLA Mora ty:ERIN Hoang Start: 01-11-2023 End: 01-11-2023 ambulatory [facility] Start: 12-22-2022 End: 12-23-2022 ambulatory MIKAYLA WEISS Facility:ERIN Hoang Start: 12-22-2022 End: 12-22-2022 Patient encounter procedure MIKAYLA WEISS [facility] Natalya Start: 10-14-2022 End: 10-14-2022 ambulatory [facility] Start: 09-06-2022 End: 09-07-2022 ambulatory Raymond HARRISON Facility:ERIN Hoang Start: 08-11-2022 End: 08-12-2022 ambulatory Raymond HARRISON Facility:CD:[id number] Start: 08-10-2022 End: 08-11-2022 ambulatory Raymond HARRISON Facility:[facility] Start: 08-09-2022 End: 08-09-2022 ambulatory Addy Daniels Facility:[facility] Start: 08-09-2022 ambulatory MIKAYLA WEISS Facility :[facility] Start: 08-05-2022 End: 08-06-2022 Emergency department patient visit Camacho Saavedray Facility:[facility] Start: 08-05-2022 End: 08-06-2022 Emergency department patient visit MD Addy Daniels Work Phone: [facility] Work Phone: Start: 06-13-2022 End: 06-14-[address] ADDY DANIELS . Facility:[facility] Start: 05-19-[address] ADDY DANIELS . Facili ty:[facility] Start: 04-18-2022 End: 04-19-[address] VALERIE DARDEN Facility:[facility] Start: 04-04-2022 End: 04-04-2022 ambulatory [facility] Start: 01-30-[address] ADDY DANIELS . Facili ty:[facility] Start: 01-04-2022 End: 01-05-[address] ADDY DANIELS . Facility:[facility] Start: 12-26-2021 End: 12-29-2021 Evaluation and management of inpatient DR ADDY DANIELS . Facility:[facility] Start: 12-02-2021 End: 01-04-2022 Pre-admission assessment Alie Santos [facility] Start: 11-30-2021 End: 12-01-[address] JESUS BRUNO Facility:[facility] Start: 11-09-2021 End: 11-10-[address] CALISTA ACEVES Facility:[facility] Start: 08-06-2021 End: 08-07-[address] VALERIE DARDEN Facility:[facility] Start: 07-28-2021 End: 07-29-[address] CALISTA ACEVES Facility:[facility] Start: 06-22-2021 End: 06-22-2021 Patient encounter procedure VALERIE DARDEN [facility] Start: 11-15-2018 End: 11-20-2018 Evaluation and management of inpatient [facility] Start: 11-15-2018 End: 11-20-2018 Evaluation and management of inpatient Mary Vega Work Phone: [facility] Comment on above: Spinal stenosis of l umbosacral region (Primary Dx); Impaired mobility; Vasovagal syncope Start: 11-13-2018 End: 11-15-2018 Evaluation and management of inpatient [facility] Start: 11-13-2018 End: 11-15-2018 Patient encounter procedure LENNY Kang [facility] Start: 11-04-2018 End: 11-05-2018 Patient encounter procedure CALISTA KETAN [facility] Start: 11-04-2018 End: 11-05-2018 Emergency department patient visit Lenny Corral Work Phone: [facility] Comment on above: Lumbar radiculopathy (Primary Dx); Intractable low back pain Start: 04-19-2018 End: 04-20-2018 Patient encounter procedure DEFAULT PHYSICIAN Facility:[facility] Procedures Date Procedure Procedure Detail Performing Clinician [...] ACEVES Start: 11-19-2018 INCENTIVE SPIROMETRY RT CALISTA CAEVES Start: 11-19-2018 INITIATE OXYGEN THER APY PROTOCOL [...] Start: 11-15-2018 PT EVAL AND TREAT MARQUEZ ACVEES Start: 11-15-2018 REASON FOR NO MECHAN ICAL VTE PROPHYLAXIS CALISTA ACEVES Start: 11-15-2018 MAIL DISTRIBUTOR EVAL AND TREAT CHRIS PRESLEY KETAN Start: [...] scan extracra nial art compl bi study Zumper Work Phone: Start: 11-15-2018 Culture bacterial quanttative colony count urine Mary Gary Work Phone: Start: 11-15-2018 Urinalysis microscopic only Mary Gary Work Phone: Start: 11-15-2018 Blood count complete auto&auto difrntl wbc CALISTA ACEVES Start: 11-15-2018 Culture bacterial bl ood aerobic w/id isolates CALISTA ACEVES Start: 11-15-2018 Microscopic examinat ion of blood, culture CALISTA ACEVES Comment on above: Performed By: #### P TT #### [facility] [address] [place] [address] Start: 11-15-2018 Urnls dip stick/tabl et [...] ACEVES Start: 11-14-2018 DAILY WEIGHTS CALISTA PETRA PATINO Start: 11-14-2018 OT EVAL AND TREAT MARQUEZ [...] RIVERA UN Start: 11-13-2018 INCENTIVE SPIROMETRY RT CALITSA ACEVES Start: 11-13-2018 INITIATE OXYGEN THER APY [...] MIKAYLAJAQUELINE WEISS Cholecystectomy MIKAYLA MARTINEZ Colonoscopy MIKAYLAJAQUELINE EWISS Procedure on back MIKAYLA DUMAS Tonsillectomy MIKAYLA ABDULLAHI Plan of Treatment Date Care Activity Detail Author Start: 08-05-2022 CT Abdomen and Pelvi s WO contrast [facility] Start: 08-05-2022 CT of abdomen and pe lvis without contrast CT abdomen pelvis wo con [facility] Start: 11-19-2019 Creatinine monitoring Creatinine mon [place] Start: 11-19-2019 Potassium monitoring Potassium monit [employer], [place] Start: 11-05-2019 Creatinine monitoring Creatinine mon [place], [place] Start: 11-05-2019 Potassium monitoring Potassium monit [employer], [place] Start: 12-04-2018 End: 12-04-2018 Office Visit 12/04/2018 Office Visit Neurosurgery Lenny Corral MD [address] [facility], [address] [address] [employer] Start: 11-30-2018 End: 11-30-2018 Office Visit 11/30/2018 Office Visit Neurosurgery Lenny Corral MD [address] [facility], [address] [address] [employer] Start: 11-23-2018 End: 11-23-2018 Office Visit 11/23/2018 Office Visit Neurosurgery Lenny Corral MD [address] [facility], [address] [address] [employer] Start: 11-13-2018 Annual Wellness Visi t (AWV) Annual Wellness Visit (AWV) [place] Start: 10-21-2018 Influenza vaccination Flu vaccine (# 1) [place], [place] Start: 2001 DEXA (modify frequen cy per FRAX score) DEXA (modify frequency per FRAX score) [place], [place] Start: 2001 Pneumococcal 65+ yea rs Vaccine (1 of 2 - PCV13) Pneumococcal 65+ years Vaccine (1 of 2 - PCV13) [place], [place] Start: 1986 Shingles Vaccine (1 of 2) Shingles Vaccine (1 of 2) [place] Start: 11-13-1955 DTaP/Tdap/Td vaccine (1 - Tdap) DTaP/Tdap/Td vaccine (1 - Tdap) [place], [place] Start: 1946 Lipid screen Lipid screen [place], [place] Culture Blood #1 Culture Blood # 1 Microbiology STAT 11/15/2018 4:37 PM EDT [place], [place] Culture Blood #2 Culture Blood # 2 Microbiology STAT 11/15/2018 4:37 PM EDT [place] End: 11-05-2018 EKG 12 Lead EKG 12 Lead ECG Routine One Time for 1 Occurrences starting 11/05/2018 until 11/05/2018 [place] Comment on above: One Time for 1 Occur rences starting 11/05/2018 until 11/05/2018 Incentive spirometry Incentive s pirometry Respiratory Care Routine Every 2hr while awake until discontinued starting 11/15/2018 [place] Comment on above: Every 2hr while awak e until discontinued starting 11/15/2018 Initiate Oxygen Ther apy Protocol Initiate Oxygen Therapy Protocol Respiratory Care Routine Daily until discontinued starting 11/15/2018 [place] Comment on above: Daily until disconti nued starting 11/15/2018 Nonrebreather mask oxygen Nonrebreather mask oxygen Respiratory Care Routine As directed - RT (PRN) until discontinued starting 11/05/2018 [place] Comment on above: As directed - RT (MO N) until discontinued starting 11/05/2018 Patient Education Kidney Stones (DC) [facility] Work Phone: Patient referral [facility] Work Phone: End: 11-15-2018 Speech and language therapy regime Speech language pathology evaluation MAIL DISTRIBUTOR Routine One Time for 1 Occurrences starting 11/15/2018 until 11/15/2018 [place] Comment on above: One Time for 1 Occur rences starting 11/15/2018 until 11/15/2018 End: 11-04-2018 Urine Reflex to Culture Urine Reflex to Culture Lab STAT One Time for 1 Occurrences starting 11/04/2018 until 11/04/2018 [place] Comment on above: One Time for 1 Occur rences starting 11/04/2018 until 11/04/2018 Immunizations Immunization Date Immunization Notes Care Provider Laxmi romero 12-20-2021 influenza virus vaccine, unspecified formulation MIKAYLA ABDULLAHI [facility] 12-21-2020 influenza virus vaccine, unspecified formulation MIKAYLA ABDULLAHI [facility] 01-09-2019 influenza virus vaccine, unspecified formulation MIKAYLA ABDULLAHI [facility] 11-29-2017 influenza virus vaccine, unspecified formulation MIKAYLA ABDULLAHI [facility] 01-02-2017 influenza virus vaccine, unspecified formulation MIKAYLA ABDULLAHI [facility] 12-06-2016 influenza virus vaccine, unspecified formulation MIKAYLA ABDULLAHI [facility] 12-11-2014 influenza virus vaccine, unspecified formulation MIKAYLA ABDULLAHI [facility] Payers Date Payer Category Payer Self-pay [id number] 2021 Unknown [id number] 2018 Medicare MEDICARE MEDICAR E PART A AND B xxxxxxxxxxx 2018-Present [phone] [place] [address] xxxxxxxxxxx [id number] 2014 Medicare [id number] 2014 Medicare MEDICARE MEDICAR E PART A AND B xxxxxxxxxx 2014-Present [phone] [address] [place] [address] xxxxxxxxxx [id number] 2014 Unknown [id number] 2014 Unknown 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 [address] xxxxxxxxxxxx 2014-Present [phone] [address] [place] [address] xxxxxxxxxxxx [id number] 1959 Medicare [id number] 1959 Self-pay [id number] 1959 Unknown [id number] 1936 Unknown [id number] 2.16.840.1.147267.3.579.2.647 1936 Unknown [id number] 2.16.840.1.910398.3.579.2.182 1936 Unknown [id number] 2.16.840.1.129498.3.579.2.182 1936 Unknown [id number] 2.16.840.1.830976.3.579.2.182 1936 Unknown [id number] 2.16.840.1.517128.3.579.2.182 1936 Unknown [id number] 2.16.840.1.204662.3.579.2.593 1936 Unknown [id number] 2.16.840.1.327401.3.579.2.593 1936 Unknown [id number] 2.16.840.1.700657.3.579.2.593 1936 Unknown [id number] 2.16.840.1.867831.3.579.2.593 1936 Unknown [id number] 2.16.840.1.927233.3.579.2.593 1936 Unknown [id number] 2.16.840.1.649668.3.579.2.593 1936 Unknown [id number] 2.16.840.1.983452.3.579.2.593 1936 Unknown [id number] 2.16.840.1.896937.3.579.2.593 1936 Unknown [id number] 2.16.840.1.244949.3.579.2.593 1936 Unknown [id number] 2.16.840.1.455397.3.579.2.593 1936 Unknown [id number] 2.16.840.1.236408.3.579.2.727 1936 Unknown [id number] 2.16.840.1.690996.3.579.2.727 1936 Unknown [id number] 2.16.840.1.303612.3.579.2.727 1936 Unknown [id number] 2.16.840.1.850737.3.579.2.727 1936 Unknown [id number] 2.16.840.1.911485.3.579.2.727 1936 Unknown [id number] 2.16.840.1.206239.3.579.2.727 Unknown Unknown [id number] 2.16.840.1.866817.3.579.2.531 Unknown [id number] 2.16.840.1.755189.3.579.2.531 Social History Date Type Detail Facility Start: 11-04-2018 End: 12-22-2022 Tobacco smoking status NHIS Never smoker [facility] Natalya Start: 11-04-2018 End: 11-19-2018 Alcohol intake Not Currently [place], [place] Sex Assigned At Not on file [place] Tobacco smoking status No Smokin g Status Entered [facility] Start: 1935 Sex Assigned At Female [facility] Tobacco smoking status Never [facility] Medical Equipment Procedure Code Equipment Code Equipment Origin al Text Equipment Identifier Dates Graft Canc Chip 30cc [id number] - [id number] Start: 11-13-2018 Graft Canc Chip [id number] 15cc - [id number] Start: 11-13-2018 Sys Fix Reline 0 x Conn 40 50mm 5.5lp Adj [id number] Start: 11-13-2018 Jose Armando-Graft Infuse Kt Med [id number] Start: 11-13-2018 Impl Spine Cage Kamila Crv [id number] 8deg [id number] Start: 11-13-2018 Impl Spine Cage Kamila Crv [id number] 8deg [id number] Start: 11-13-2018 Screw Polyaxial Reline O 2s 6.0x55mm [id number] Start: 11-13-2018 Screw Lk Reline Opn Tulip 5.5mm [id number] Start: 11-13-2018 Impl Spine Harish Reline-O Lrdtc 5.5x70mm [id number] Start: 11-13-2018 Impl Spine Harish Reline-O 5.5x75mm [id number] Start: 11-13-2018 Functional Status Date Assessment Result Facility 12-22-2022 Functional Status N/A [facility] Clinical Notes 04-04-2022 to 01-11-2023 Note Date & Type Note Facility 01-11-2023 Note Noted 7 beat run of NSVT on 1 week holter monitor, along with SVT, PVCs Recommended to continue coreg 25 mg bid, will place 30 day monitor, and obtain treadmill cardiolite stress test for ischemic evaluation. [facility] 01-11-2023 Note Pt reports that she has had 5 syncopal episodes since this Summer- some while having a BM, and other episodes while just up and walking. [facility] 01-11-2023 Note Will monitor with ro utine echocardiogram annually unless pt has concerning symptoms [facility] 01-11-2023 Note Recommended to gorge nue ASA and pravastatin [facility] 01-11-2023 Note Hypertension is stab le Reviewed B/P log and typically in the mornings her b/p with well controlled 120's/70-80, and in the evenings can be up to 140/80 Continue all meds and will add toprol [facility] 01-11-2023 Note Continue pravastatin [facility] 01-11-2023 Note Will monitor with ro utine echocardiogram annually unless pt has concerning symptoms [facility] 01-11-2023 Note Will monitor with ro utine echocardiogram annually unless pt has concerning symptoms [facility] 01-11-2023 Note Patient here for 3 [...] All other systems reviewed and are negative. [facility] 01-11-2023 Note UTP CARDIOLOGY PROGR ESS [...] called and was evaluated in ED at [facility]. Admits she has had a couple syncopal episodes in the bathroom while having a BM- last one was at [facility]. States she also has had a couple while just up and walking- normal Day to Day activity. Daughter states that pt is usually out for about 1 minute. Of note patient was direct admitted to the [facility] end of August for electrolyte imbalances low sodium, low potassium, and acute anemia. She was evaluated at [facility] in October for ABD pain/ syncope, and [...] The patient states she was shopping in [employer] when she felt the need to have [...] a colonoscopy approximately 5 years ago at [facility]. HPI - Altered Mental Status General [...] was someone in the bathroom in the [place]oo and she have to go back and [...] 3 levothyroxine (Syn (more content not included)... [facility] 12-22-2022 Hospital Discharge instructions Patient Education [...] transplant. Follow these instructions at home: Take [id number] and prescription medicines only as told by [...] provider. Document Revised: 05/26/2020 Document Reviewed: 05/26/2020 [employer] Patient Education 2022 [employer]. Follow Up Care 09/06/2022 13:10:43 With:ABDULLAHI NOONAN, MIKAYLA Pereira, URL Address: [address] [place] [address] [phone] When: Unknown Comments:6 mos w/ renal fxn (per PCP) [facility] Natalya 10-25-2022 Note Pt message/ call jorge [...] needs to call for appointment Lesly Alaniz MEAT GRADING MACHINE OPERATOR Division of Cardiology, [facility]- [phone] Pager- [phone] Email- [email or web address] 10-14-2022 Note Stable and non pitting currently [facility] 10-14-2022 Note Currently stable Pt to call for any recurrent syncope or concerns [facility] 10-14-2022 Note Mild on recent echo No concerning symptoms [facility] 10-14-2022 Note Continue ASA and statin [facility] 10-14-2022 Note Hypertension is unco ntrolled 160/75- admits this is where her b/p is at home Increase coreg to 25 mg bid, continue losartan 100 mg, hydrochlorothiazide 25 mg, and amlodipine 10 mg [facility] 10-14-2022 Note Continue pravastatin [facility] 10-14-2022 Note No concerning sympto ms Will continue to monitor with echocardiogram [facility] 10-14-2022 Note No concerning sympto ms Will continue to monitor with echocardiogram [facility] 10-14-2022 Note Patient here c/o LE edema. Says today they aren't as bad, but she states they're hard and sometimes painful. She has not had lab work since [facility] stay in July 2022. She denies chest pain, lightheadedness, and palpitations. Review of Systems Cardiovascular: Positive for dyspnea on exertion and leg swelling. Hematologic/Lymphatic: Bruises/bleeds easily. All other systems reviewed and are negative. [facility] 10-14-2022 Note [facility] CARDIOLOGY PROGR ESS [...] note patient was direct admitted to the [facility] end of August for electrolyte imbalances [...] and non pitting currently RTC 3-6 months [facility] 04-04-2022 Note [facility] Cardiology Clinic Note Chief Complaint: [...] p.o. twice dominic (more content not included)... [facility] Evaluation + Plan note No data available for this section [facility] Evaluation + Plan note Future Appointments Appointment Date:06/29/2023 09:30:00 AM Scheduled Provider:MIKAYLA WEISS PA-C Location:[facility] Appointment Type:URO Office Visit [facility] Evaluation note No assessment inform ation available [facility] Work Phone: Hospital Discharge instructions No data available for this section [facility] Hospital Discharge instructions Additional Instructions Take [...] fevers or chills or intractable nausea vomiting. [facility] Work Phone: Progress note No data available for this section [facility] Summary Purpose Family History No Family History Records FoundNo Family History Records FoundNo Family History Records FoundNo Family History Records Found No data available for this section No Family History Records FoundNo Family History Records Found Advance Directives No Advanced Directives Records FoundDocuments on File Type Date Recorded Patient Title Insurance Examiner Expl anation Advance Directives and Living Will Power of Associate Programmer Analyst Latest Code Status on File Code Status Date Activated Date Inactivated Comments Full Code 11/05/2018 6:34 PM Full Code 11/04/2018 5:08 PM 11/05/2018 6:34 PM Documents on File Type Date Recorded Patient Title Insurance Examiner Expl anation Advance Directives and Livin g Will Advance Directives and Livin g Will 11/06/2018 1:08 AM AD info sheets Power of Associate Programmer Analyst Latest Code Status on File Code Status [...] sent through Care Everywhere. * Back Pain (Macedonian) documented in this encounter* Discharge Instr - [...] most local grocery stores, pharmacies, and chain [employer]stores. ? If you have any questions about [...] Contact Information Primary Emergency Contact: Andrea Madrid [facility] Mobile Relation: Spouse Secondary Emergency Contact: Liliya Townsend Mobile Relation: Child Supervisor Fitting needed? No Past Surgical History: Past Surgical History: Procedure Laterality Date APPENDECTOMY BACK SURGERY CHOLECYSTECTOMY LUMBAR FUSION N/A 11/13/2018 PLIF L 3-4-5 DECOMPRESSION L3, L4 performed by Lenny Corral MD at [facility] OR [facility] Right Immunization History: There is no immunization [...] Assisted Dressing Independent Toileting Independent Feeding Independent Supervisor Cell Maintenance Independent Med Delivery whole Wound Care Documentation [...] Video (Video Swallowing Test): {Done Not Done Date:[id number]} Treatments at the Time of Hospital Discharge: Respiratory Treatments: Oxygen Therapy: is not on home oxygen therapy. Ventilator: - No ventilator support Rehab Therapies: Physical Therapy and Occupational Therapy Weight Bearing Status/Restrictions: No weight bearing restirctions Other Medical Equipment (for information only, NOT a DME order): walker Other Treatments: Patient's personal belongings (please select all that are sent with patient): {[facility] Belongings:[id number]} RN SIGNATURE: MANAGEMENT/SOCIAL WORK SECTION Inpatient Status Date: Patient was admitted to Inpatient Acute Rehab 11/15/18 Readmission Risk Assessment Score: Readmission Risk Risk of Unplanned Readmission: 12 Discharging to Facility/ Agency Name: Karan Sosa Address: Fax: Dialysis Facility (if applicable) Name: Address: Dialysis Schedule: Phone: Fax: Licensing Engineer/Street Light Wirer signature: ICIAN SECTION Prognosis: Good Condition at [...] Date: 11/20/2018 Patient Name: Hiram Madrid Account: [id number] : 1935 (83 y.o.) Room: [place] [address] Diagnosis: Impaired mobility and gait secondary to [...] L4 performed by Lenny Corral MD at [facility] Right Precautions: Restrictions/Precautions: Fall [...] to increasing pain) Transfer Assistance: Independent Active Efficiency Miner: Yes Mode of Transportation: Car 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 Rehabilitation MUSIC THERAPY Date: 11/20/2018 Patient Name: Hiram Madrid Date of : 1935 (83 y.o.) Gender: female Diagnosis: Impaired mobility and gait secondary to NTSCI secondary to lumbar stenosis, radiculopathy, and spondylosis Referring Practitioner: Dr. Coker RESTRICTIONS/PRECAUTIONS: Restrictions/Precautions: Fall Risk Vision: Impaired Hearing: Exceptions to [facility] Hearing Exceptions: Hard of hearing/hearing concerns, [...] interested in having music therapy again. [] [facility] will attempt to see pt again another day, if time allows. [x] Pt's planned d/c date is before [facility] is scheduled on unit again. [] Pt NOT interested in having music therapy again. [facility] 11/20/2018 * Roselyn Schroeder OTA - 11/20/2018 9:59 AM EDT Occupational Therapy Facility/Department: [facility] Daily Treatment Note NAME: Hiram Madrid [...] 11/20/2018 9:55 AM EDT Occupational Therapy Facility/Department: [facility] Daily Treatment Note NAME: Hiram Madrid [...] device (slide rail) Walk: 6 - Modified Dale Walks at least 150 feet with an ambulatory device, orthosis or prosthesis OR requires extra amount of time OR there is concern for safety Distance Walked: 200' Wheel Chair: 0 - Activity Not Assessed/Does Not Occur Stairs: 6 - Modified Dale Safely goes up and down at least [...] from Dr. Ellis Holguin D.O., PM&R Attending [phone] [facility] Jerauld * Khanh White LPN - 11/19/2018 6:00 [...] 11/19/2018 2:05 PM EDT Occupational Therapy Facility/Department: [facility] Daily Treatment Note NAME: Hiram Madrid [...] EDT Physical Therapy Rehab Treatment Note Facility/Department: [facility] Room: [place] [address] NAME: Hiram Madrid : 1935 (83 y.o.) [...] EDT Progress Note Patient: Hiram Madrid Unit/Bed: [place] [address] Date of : 1935 Acct: [id number] Admitting Diagnosis: Impaired mobility [Z74.09] Spinal stenosis [...] and tentative discharge home tomorrow. Follows with line driver in [place]. 11/18/18: called by staff respiratory therapist regarding tachycardia. Pt was unaware of tachycardia. [...] to have + orthostatics. Denies hx of [place], CHF or arrhythmia. Follows with a line driver from [place] for carotid artery disease and cardiac murmur. [...] to DC home and F/U with regular line driver as outpatient Attending Supervising Physician's Attestation Statement The patient is a 83 y.o. female. I have performed a history and physical examination of the patient. I discussed the case with the physician assistant women's tennis coach. I reviewed the patient's Past Medical History, [...] EDT Physical Therapy Rehab Treatment Note Facility/Department: [facility] Room: [place] [address]- NAME: Hiram Madrid : 1935 (83 y.o.) [...] EDT Physical Therapy Rehab Treatment Note Facility/Department: [facility] NAME: Hiram Madrid : 1935 (83 y.o.) [...] Neuromuscular Education Neuromuscular Comments: Pizano Initiated: other PATTERN WEAVER finished it: pt scored a 42/56. Bed [...] education: 10 Therapeutic ex: 0 Mikayla Lindsey, PATTERN WEAVER, 11/19/18 at 11:59 AM * Khanh White [...] Unit/Bed: R238/R238-01 Date of : 1935 Acct: [id number] Admitting Diagnosis: Impaired mobility [Z74.09] Spinal stenosis of lumbosacral region [M48.07] Admit Date: 11/15/2018 Hospital Day: 4 Current Medications: Scheduled Meds: cephALEXin 500 mg Oral 3 times per day lpjfsuau-qlgjjlbjmd-ipdbfhaqe Topical BID enoxaparin 30 mg Subcutaneous Daily [...] woman from homewith spouse who presents to [facility] with the above deficits which impact [...] ms QTc Calculation (Bazett) 463 ms P [place] 58 degrees R [place] -11 degrees T [place] 5 degrees Xr Chest Standard (2 Vw) [...] from Dr. Ellis Holguin D.O., PM&R Attending [address] [place] [address] * Rachael Graf LPN - 11/18/2018 4:39 [...] and no guarding. Musculoskeletal: Back: Urine Culture [[id number]] Collected: 11/15/18 190 Order Status: Completed Specimen: Urine, clean catch Updated: 11/17/18 0728 Urine Culture, Routine No growth 24 hours Narrative: ORDERED BY: ADDY COKER SOURCE: Urine Clean Catch COLLECTED: 11/15/18 19:05 ANTIBIOTICS AT DI.: RECEIVED : 11/15/18 19:05 Culture Blood #2 [[id number]] Collected: 11/15/18 1637 Order Status: Completed Specimen: Blood Updated: 11/16/18 1815 Culture, Blood 2 No Growth to date. Any change in status will be called. Narrative: ORDERED BY: ADDY COKER SOURCE: Blood COLLECTED: 11/15/18 16:37 ANTIBIOTICS AT DI.: RECEIVED : 11/15/18 16:42 Culture Blood #1 [[id number]] Collected: 11/15/18 1637 Order Status: Completed Specimen: [...] Unit/Bed: R238/R238-01 Date of : 1935 Acct: [id number] Admitting Diagnosis: Impaired mobility [Z74.09] Spinal stenosis [...] L4 performed by Lenny Corral MD at [facility] OR [facility] Right History reviewed. No pertinent family history. [...] on phone: None Gets together: None Attends mandaeism service: None Active member of club or organization: None Attends meetings of clubs or organizations: None Relationship status: None Intimate partner violence: Fear of current or ex partner: None Emotionally abused: None Physically abused: None Forced sexual activity: None Other Topics Concern None Social History Narrative None Subjective/HPI: called by staff respiratory therapist regarding tachycardia. Pt was unaware of tachycardia. [...] woman from homewith spouse who presents to [facility] with the above deficits which impact [...] up labs. Blanca Holguin D.O., PM&R Attending [phone] [place] [address] Jerauld * Dana Craig, JANET - 11/17/2018 5:45 PM EDT Monitor room called, said pt had about 18 sec run of svt up to 218; notified cardio. * Faye Summers PTA - 11/17/2018 4:07 PM EDT Physical Therapy Rehab Treatment Note Facility/Department: [facility] NAME: Hiram Madrid : 1935 (83 y.o.) [...] 11/17/2018 2:51 PM EDT Occupational Therapy Facility/Department: [facility] Daily Treatment Note NAME: Hiram Madrid [...] EDT Physical Therapy Rehab Treatment Note Facility/Department: [facility] Room: R238/R238-01 NAME: Hiram Madrid : [...] EDT Physical Therapy Rehab Treatment Note Facility/Department: [facility] NAME: Hiram Madrid : 1935 (83 y.o.) [...] 11/17/2018 8:43 AM EDT Occupational Therapy Facility/Department: [facility] Daily Treatment Note NAME: Hiram Madrid [...] at below status. ADL Equipment Provided: Sock aid;Television Analyzer Grooming: Independent UE Bathing: Setup LE Bathing: [...] woman from homewith spouse who presents to [facility] with the above deficits which impact [...] consult,check dopplers Blanca Holguin D.O., PM&R Attending [phone] [facility] [place] * Jessica Irvin, OTR/L - 11/16/2018 4:14 PM EDT Occupational Therapy Facility/Department: [facility] Daily Treatment Note NAME: Hiram Madrid : 1935 Date of Service: 11/16/2018 Discharge Recommendations: Continue to assess pending progress OT Equipment Recommendations Other: Continue to assess Assessment Performance deficits / Impairments: Decreased functional mobility ;Decreased ADL status;Decreased strength;Decreased balance;Decreased endurance;Decreased high- level IADLs Assessment: Pt. 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 Denies hx of [place], CHF or arrhythmia. Follows with a line driver from [place] for carotid artery disease and cardiac murmur. [...] L4 performed by Lenny Corral MD at [facility] Right Social History Social [...] on phone: None Gets together: None Attends mandaeism service: None Active member of club or [...] mg 100 mg Oral Daily Shyla Vizcaino, ASSOCIATE PROFESSOR OF ART HISTORY - HARNESS RIGGER oxyCODONE-acetaminophen (PERCOCET) 5-325 MG per tablet 1 tablet 1 tablet Oral Q4H PRN Shylapresley Vizcaino, ASSOCIATE PROFESSOR OF ART HISTORY - HARNESS RIGGER potassium chloride (KLOR-CON) packet 20 mEq 20 mEq Oral BID Shyla Renato Vizcaino, ASSOCIATE PROFESSOR OF ART HISTORY - HARNESS RIGGER pravastatin (PRAVACHOL) tablet 80 mg 80 mg Oral Daily Shyla Renato Vizcaino, ASSOCIATE PROFESSOR OF ART HISTORY - HARNESS RIGGER polyethylene glycol (GLYCOLAX) packet 17 g 17 [...] EDT Physical Therapy Rehab Treatment Note Facility/Department: [facility] Room: [facility] NAME: Hiram Madrid : 1935 (83 [...] education: 0 Therapeutic ex: 23 Mikayla Lindsey PATTERN WEAVER, 11/16/18 at 3:57 PM * Rhiannon Blank [...] from home with spouse who presents to [facility] with the above deficits which impact [...] to increasing pain) Transfer Assistance: Independent Active Efficiency Miner: Yes Mode of Transportation: Car Type of [...] OTR/L Jessica Irvin OTR/Lloyd * Jena Vega, PATTERN WEAVER - 11/16/2018 10:35 AM EDT Physical Therapy Rehab Treatment Note Facility/Department: [facility] Room: [place] [address] NAME: Hiram Madrid : 1935 (83 y.o.) [...] 11/16/18 at 11:10 AM * Jessenia Gordon, DIGITAL MEDIA PRODUCER - 11/16/2018 9:35 AM EDT [facility] Rehabilitation RECREATIONAL THERAPY Initial Evaluation Date: [...] hearing in left ear) Patient seen at: [id number] Recreation Therapist received referral, chart reviewed and [...] her flower bed. Past leisure interests: Walking, voodoo, had pets Future leisure interests: Emotional Observed/noted: [...] PT - 11/16/2018 8:20 AM EDT Facility/Department: [facility] Rehabilitation Initial Assessment: Physical Therapy [facility] NAME: Hiram Madrid : 1935 Date of [...] L4 performed by Lenny Corral MD at [facility] OR [facility] Right Chart Reviewed: Yes Patient assessed for [...] to increasing pain) Transfer Assistance: Independent Active Efficiency Miner: Yes Additional Comments: 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, [...] side to side to initiate log roll penitentiary goals penitentiary goal 1: pt to be indep with bed mobility 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 goal 2: pt to be indep with bed transfers penitentiary goal 3: pt to [id number] ft with supervision 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 goal 4: pt to navigate 4 steps with SBA 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 goal 5: 30/56 for Pizano balance testing ELOS: Plan weeks: 2 Therapy Time: Individual Time In 1000 Time Out 1030 Minutes 30 Lakisha Trevino, PT, 11/16/18 at 12:00 PM * Marybel Ackerman, [facility] - 11/15/2018 11:29 PM EDT Tashia [...] puffs by inhalation with spacer [] Ipratropium Ilion 0.02% unit dose by aerosol Ipratropium Ilion MDI 2 puffs by inhalation with spacer [] Duoneb (Ipratropium + Albuterol) unit dose by aerosol Ipratropium MDI + Albuterol MDI 2 puffs byinhalation w/spacer MDI to Aerosol [] Albuterol Sulfate MDI Albuterol Sulfate 0.083% unit dose by aerosol [] Levalbuterol MDI 2 puffs by inhalation Levalbuterol 1.25 mg unit dose by aerosol [] Ipratropium Ilion MDI by inhalation Ipratropium Ilion 0.02% unit dose by aerosol [] Combivent (Ipratropium + Albuterol) MDI by inhalation Duoneb (Ipratropium + Albuterol) unit doseby aerosol Treatment Assessment [Frequency/Schedule]: Change frequency to: ACCUNEB Q4 PRN per Protocol, P&T, [facility] Points 0 1 2 3 4 [...] of lumbosacral region Impaired mobility Vasovagal syncope [facility] [address] [place] [address] Chief Complaint and Reason for Visit Chief Complaint SYNCOPE Additional Source Comments INFORMATION SOURCE (unrecogn ized section and content) DATE CREATED AUTHOR 04/20/2018 [facility] DATE CREATED AUTHOR AUTHOR'S ORGANIZ ATION 11/24/2018 [facility] DATE CREATED AUTHOR AUTHOR'S ORGANIZ ATION 06/14/2022 [facility] DATE CREATED AUTHOR AUTHOR'S ORGANIZ ATION 08/21/2022 [facility] DATE CREATED AUTHOR AUTHOR'S ORGANIZ ATION 12/23/2022 [facility] DATE CREATED AUTHOR AUTHOR'S ORGANIZ ATION 01/13/[address] [facility] Reason for Visit (unrecogniz ed section and content) Reason Comments Back Pain Left low back pain r adiates down left leg. Pain flared up last monday Status Reason Specialty Diagnoses / Procedures Referre d By Contact Referred To Contact Diagnoses Intractable back pain Lenny Corral MD [address], [address] [place] [address] [facility] Patient Care team informatio n (unrecognized [...] BE BASED ON THE PRIMARY CLINICAL RECORDS. [facility] [employer] [facility]. provides no warranty or guarantee of the accuracy or completeness of information in this document.
--- OUTSIDE RECORDS SUMMARY | 2023-02-10 13:16 | XMS_ITS | CCD ---
Author Name Unknown Address [address] [place] [address] Organization [facility] Care Team Providers Care Mental Health Therapist Name Role Phone PHYSICIAN, DEFAULT Admitting Unavailable [...] Care Unavailable Calista Aceves Primary Care Provider [phone] CALISTA ACEVES Primary Care Physician [phone] DR VALERIE DARDEN Consulting Unavailable JEREMIAH .DR [...] Unavailable MD Addy Daniels Primary Care Provider [phone] Camacho Ladd [facility] Camacho Rocha Admitting Unavailable Addy Daniels Primary Care Unavailable Camacho Ladd Attending Unavailable Addy Daniels Primary Care Unavailable Raymond Harrison Attending Unavailable Raymond Harrison Admitting Unavailable Addy Daniels Primary Care Physician [phone] MIKAYLA WEISS Attending Unavailable Raymond HARRISON Attending Unavailable HARRISONRaymond Attending Unavailable MIKAYLA WEISS Attending Unavailable Raymond HARRISON Attending Unavailable [place] Attending Unavailable LESLY ALANIZ Attending Unavailable LESLY ALANIZ Attending Unavailable Allergies Allergy Classification Reported Allergen(s) Allergy Type Date of Onset Reaction(s) Facility (5 sources) predniSONE; Translations: [prednisone] Drug Allergy 8 Hives, Eruption of skin (disorder) [place], [place] (2 sources) predniSONE Drug Allergy 7 [facility] Repository (1 source) predniSONE Drug Allergy 3 [facility] Repository (3 sources) atorvastatin; Translations: [atorvastatin] Drug Allergy 3 Unknown (qualifier value) [facility] (2 sources) Ibuprofen; Translations: [ibuprofen] Drug Allergy Unknown (qualifier value) [facility] Natalya Medications Current Medications Medication Drug [...] Antibacterial, Polymyxin-class Antibacterial Start: 11-16-2018 End: 11-18-2018 tdxzpijy-itftrwlifr-hwkpukfi n (NEOSPORIN) ointment carvedilol (1 source) alpha-Adrenergic Yaidra, beta-Adrenergic Yadira Start: 08-10-2022 carvedilol Oral Start [...] 5 August 05, 2022 polyethylene glycol 3350 22223 mg powder for oral solution (1 source) Osmotic Laxative Start: 11-15-2018 polyethylene glycol (GLYCOLAX) packet 17 g Potassium Chloride (7 sources) Start: 08-10-2022 Potassium Chlo ride (Gkp-Ymlg-Phz 10) mEq, Oral, BID Start Date: 08/10/22 Status: Ordered Start: 11-05-2018 End: 11-05-2018 potassium chloride (KLOR-CON M) extended release tablet 40 mEq Start: 11-04-2018 20 mEq, Oral, 2 TIMES DAILY, First dose on Aura 11/15/18 at 2100 Dilute with at least 4 ounces of cold water. May further dilute if GI adverse effects occur. 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] Onset: 12-31-2021 Episodic 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 source) 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) drug therapy; Translations: [OTH [facility]PC CURRENT DRUG THERAPY] Onset: 12-31-2021 Episodic Residual [...] Range Facility Office Visiton 01-11-2023 Follow-up visit [id number] Hiram Madrid 1935 F Date Provider Department Center 01/11/2023 LESLY GASPAR CARD [facility] Family History Problem Relation Age of Onset Hypertension Mother Lupus Mother Coronary artery disease Mother Heart attack Mother Hypertension Father Aneurysm Father Coronary artery disease Father Hypertension Sister Lupus Sister Family Status - Relation Status Age at Mother Father Sister Level of Service:61194 [place] OFFICE/OUTPATIENT ESTABLISHED MOD MDM 30-39 MIN Normal [facility] Lab Reportson 12-23-2022 Lab Reports [id number] 0TIFF Normal [facility] Urology Office/Clinic Noteon 12-23-2022 Urology Office/Clinic [...] Pt presented to ER due to syncope. [place] was found incidentally on CT. CT AP [...] Contact Information ABDULLAHI NOONAN, MIKAYLA Pereira, URL [address] [place] [address] [phone] Additional Instructions: 6 mos w/ renal fxn [...] Tab losartan 100 mg Tab Potassium Chloride (Bxp-Wmul-Cdv 10), Oral, BID pravastatin 80 mg Tab [...] virus vaccine, (more content not included)... Normal [facility] Comment on above: Result Comment: Elec tronically Signed By: MIKAYLA WEISS PA-C\.br\Date and Time Signed: 12/23/22 12:13 EDT\.br\Electronically Co-Signed By: Jacquie Gan\.br\Date and Time Co-Signed: 12/22/22 12:27 EDT Ambulatory Visit Summaryon 1 02-21-2022 Ambulatory Visit Summary HIRAM MADRID :1935 Visit Date:12/22/2022 Ambulatory Visit Instructions Your Diagnosis Hydronephrosis, right Ureteral stenosis Tests Performed Urnls Dip Stick Auto w/o Microscopy POC 91437 US Renal -- Results Pending -- Please [...] 100 mg Tab) potassium chloride (Potassium Chloride (Mku-Ynru-Rrn 10)) pravastatin (pravastatin 80 mg Tab) Procedures Performed Appendectomy, Bilateral salpingo-oophorectomy, Cataract extraction and insertion of intraocular lens, Cholecystectomy, Colonoscopy, Procedure on back, Tonsillectomy. Discharge Vitals Blood Pressure 124/84 Height 155 cm Height 61 in Weight 64.8 kg Weight 142.56 lb BMI 26.97 What to do next Scheduled Follow-Up Appointments June. 2023 9:30 AM EDT With: MIKAYLA WEISS PA-C Where: [facility] Natalya Anders [facility] Patient Educationon 12-23-19 Patient Education Urology [...] Follow these instructions at home: ? Take nuow-ain-dgjaylb and prescription medicines only as told by [...] provider. Document Revised: 05/26/2020 Document Reviewed: 05/26/2020 [employer] Patient Education ? 2022 [employer]. Normal [facility] RAD - Ultrasound Reporton RAD - Ultrasound Report [id number] 0TIFF [facility] Reminderson 12-22-2022 Reminders - From: Jacquie Gan To: ERIN Weiss; Sent: 12/22/2022 12:30:05 EDT Show up: 05/23/2023 12:30:00 EDT Subject: JAC and BUN/Creatinine prior to appt Reminder Message Please Remember to:_have pt schedule JAC prior to appt. Please look for BUN/Cr labs from PCP. If unable to locate recent labs, send pt order to complete this. Normal [facility] Orders Onlyon 10-25-2022 Orders Only [id number] Hiram Madrid 1935 F Date Provider Department Center 10/25/2022 [facility] Family [facility] Problem Relation Age of Onset Hypertension Mother Lupus Mother Coronary artery disease Mother Heart attack Mother Hypertension Father Aneurysm Father Coronary artery disease Father Hypertension Sister Lupus Sister Family Status - Relation Status Age at Mother Father Sister Normal [facility] 37on 10-14-2022 38 Increase coreg/carvedilol to 25 mg twice a day- you have 12.5 mg tabs now so take 2 twice a day until this bottle is gone- your next refill will be the higher dose of 25 mg bid. Have labs drawn [facility] Office Visiton 10-14-2022 Follow-up visit [id number] Hiram Madrid 1935 Date Provider Department Center 10/14/2022 LESLY GASPAR SONIA Fatmata [facility] Family History Problem Relation Age of Onset Hypertension Mother Lupus Mother Coronary artery disease Mother Heart attack Mother Hypertension Father Aneurysm Father Coronary artery disease Father Hypertension Sister Lupus Sister Family Status - Relation Status Age at Mother Father Sister Level of Service:86935 [place] OFFICE/OUTPATIENT ESTABLISHED MOD MDM 30-39 MIN [facility] Consent for Procedure/Surger yon 09-07-2022 Consent for Procedure/Surgery [id number]#1. 00CD:127 [facility] Ambulatory Visit Summaryon 0 09-06-2022 Ambulatory [...] 100 mg Tab) potassium chloride (Potassium Chloride (Ijm-Qqov-Nhl 10)) pravastatin (pravastatin 80 mg Tab) Procedures Performed Appendectomy, Bilateral salpingo-oophorectomy, Cataract extraction and insertion of intraocular lens, Cholecystectomy, Colonoscopy, Procedure on back, Tonsillectomy. Discharge Vitals Height 155 cm Height 61 in Weight 65 kg Weight 143 lb BMI 27.06 What to do next Scheduled Follow-Up Appointments Monday 2:00 PM EDT With: CHRISTY DUMONT, Raymond Mckeon Where: [facility] Patient Educationon 09-07-19 Patient Education Urology Hydronephrosis [...] Follow these instructions at home: ? Take rhqn-tap-pwzbmnv and prescription medicines only as told by [...] provider. Document Revised: 05/26/2020 Document Reviewed: 05/26/2020 [employer] Patient Education ? 2022 [employer] Normal [facility] Urology Office/Clinic Noteon 09-06-2022 Urology Office/Clinic [...] [facility] [address], [place] [address]- Additional Instructions: 3 mos no labs Patient [...] Tab losartan 100 mg Tab Potassium Chloride (Ujl-Cwgz-Oxj 10), Oral, BID pravastatin 80 mg Tab [...] inactivated 12/06/2016 Rec (more content not included)... [facility] Comment on above: Result Comment: Elec tronically Signed By: Raymond HARRISON MD\.br\Date and Time Signed: 09/06/22 13:02 EDT\.br\Electronically Co-Signed By: Josefa Stewart\.br\Date and Time Co-Signed: 09/06/22 13:01 EDT Operative Reporton Operative Report [id number] CD:127 [facility] RAD - MISCon 08-12-2022 RAD - MISC [id number]#1.00 CD:127 [facility] Ambulatory Visit Summaryon 0 08-10-2022 Ambulatory Visit Summary HIRAM MADRID :1935 Visit Date:08/10/2022 Ambulatory Visit Instructions Your Diagnosis Hydronephrosis, right Aspirin long-term use Tests Performed Urnls Dip Stick Auto w/o Microscopy POC 36973 Your Care Team Attending Physician - Raymond HARRISON MD Primary Care Physician - Addy Daniels MD This Is Your Medications List Contact prescribing physician if questions or concerns amlodipine (amLODIPine 10 mg Tab) aspirin (aspirin 81 mg oral capsule) carvedilol hydrochlorothiazide levothyroxine (levothyroxine 88 mcg (0.088 mg) Tab) losartan (losartan 100 mg Tab) potassium chloride (Potassium Chloride (Tqi-Csqa-Wlz 10)) pravastatin (pravastatin 80 mg Tab) Procedures [...] When: Where: [facility] [address] [place] [address]- Medications What How Much When Instructions Unchanged [...] or concerns Unchanged potassium chloride (Potassium Chloride (Plh-Cjzv-Shu 10)) 2 times a day Contact prescribing physician if questions or concerns Unchanged pravastatin (pravastatin 80 mg Tab) 30 EA, TAKE 1 TABLET BY MOUTH ONCE DAILY Contact prescribing physician if questions or concerns Test Results Urnls Dip Stick Auto w/o Microscopy POC 07394 (08/10/2022) Bilirubin Urine Dipstick - Negative Blood Urine Dipstick - Negative Glucose Urine Dipstick - Negative Ketones Urine Dipstick - Negative Leukocytes Urine Dipstick - Trace Nitrite Urine Dipstick - Negative Protein Urine Dipstick - Negative Specific Sharon Urine Dipstick - 1.025 Urine Appearance Urine [...] what caus (more content not included)... Normal [facility] Ambulatory Visit Summary HIRAM MADRID :1935 Visit Date:08/10/2022 Ambulatory Visit Instructions Your Diagnosis Hydronephrosis, right Aspirin long-term use Tests Performed Urnls Dip Stick Auto w/o Microscopy POC 79662 Your Care Team Attending Physician - CHRISTY DUMONT, Raymond Mckeon Primary Care Physician - Addy Daniels MD This Is Your Medications List Contact prescribing physician if questions or concerns amlodipine (amLODIPine 10 mg Tab) aspirin (aspirin 81 mg oral capsule) carvedilol hydrochlorothiazide levothyroxine (levothyroxine 88 mcg (0.088 mg) Tab) losartan (losartan 100 mg Tab) potassium chloride (Potassium Chloride (Qsn-Uzod-Ykx 10)) pravastatin (pravastatin 80 mg Tab) Procedures [...] Where: [facility] [address] [place] [address]- Medications What How Much When Instructions Unchanged [...] or concerns Unchanged potassium chloride (Potassium Chloride (Zkr-Vypw-Wpv 10)) 2 times a day Contact prescribing physician if questions or concerns Unchanged pravastatin (pravastatin 80 mg Tab) 30 EA, TAKE 1 TABLET BY MOUTH ONCE DAILY Contact prescribing physician if questions or concerns Test Results Urnls Dip Stick Auto w/o Microscopy POC 65613 (08/10/2022) Bilirubin Urine Dipstick - Negative Blood Urine Dipstick - Negative Glucose Urine Dipstick - Negative Ketones Urine Dipstick - Negative Leukocytes Urine Dipstick - Trace Nitrite Urine Dipstick - Negative Protein Urine Dipstick - Negative Specific Sharon Urine Dipstick - 1.025 Urine Appearance Urine [...] what caus (more content not included)... Normal [facility] Consent for Procedure/Surger yon 08-10-2022 Consent for Procedure/Surgery [id number]#1.00 CD:127 [facility] Formson 08-10-2022 Forms [id number]#1.00 CD:127 [facility] Patient Educationon 08-11-19 Patient Education Urology [...] Follow these instructions at home: ? Take wmpq-hmq-ywbheys and prescription medicines only as told by [...] provider. Document Revised: 05/26/2020 Document Reviewed: 05/26/2020 [employer] Patient Education ? 2022 [employer] [facility] Urology Office/Clinic Noteon 08-10-2022 Urology Office/Clinic Note Chief Complaint Kidney stones HPI Staff New Pt follow up to [facility] on 08/05/[address] due to [address] stones[address] CT [...] yo female new pt following up to [facility] ER visit on 08/05/22 due to nausea, [...] General anesthesia. 2. 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 Follow-up With When Contact Information Raymond HARRISON MD, URL [facility] [address], [place] [address]- Additional Instructions: schedule R URS, possible laser litho/basket extraction, stent placement Patient Education Hydronephrosis I, Josefa Stewart, personally scribed for Dr. Harrison on 08/10/2022 09:37:50. . Documentation recorded by the scribe, Jsoefa Stewart, accurately reflects the services(s) I performed and decisions made by me. Authenticated by Dr. Harrison on 08/10/2022 09:39:43. Problem List/Past Medical History Ongoing Arthritis Aspirin long-term use Atrial fibrillation Deafness Hydronephrosis, right Hyperlipidemia Hypertension Kidney stone Neuropathy Syncope Thyroid disease Historical No qualifyin (more content not included)... Normal [facility] Comment on above: Result Comment: Elec tronically Signed By: Raymond HARRISON MD\.br\Date and Time Signed: 08/10/22 09:39 EDT\.br\Electronically Co-Signed By: Josefa Stewart\.br\Date and Time Co-Signed: 08/10/22 09:38 EDT XR KUBon 08-09-2022 XR [facility]UB [place] [address] [address] XRay Report Signed Patient: Hiram Madrid MR#: [id number] : 1935 Acct:[id number] Age/Sex: 86 / F ADM Date: 08/09/22 Loc: [facility]D [facility]: Raymond Harrison MD Copies to: [...] Lopez Jr., D.OYou08/09/2022 3:58 PM Dictation Location: [place] [address] Transcribed By: [facility] 08/09/22 1558 Dictated By: Kameron Lopez Jr, DO 08/09/22 1555 Signed By: 08/09/22 1558 Normal [facility] CT abdomen pelvis wo conon 0 08-06-2022 CT abdomen pelvis wo con [place] [id number] CT Scan Report Signed Patient: Hiram Madrid MR#: [id number] : 1935 Acct:[id number] Age/Sex: 86 / F ADM Date: 08/05/22 Loc: ER Room: Type: [facility] ER Attending Dr: Copies to: Camacho [...] Faye Wyman M.D.08/06/2022 8:43 AM Dictation Location: [place] [address] Transcribed By: [facility] 08/06/22 0843 Dictated By: Faye Wyman MD 08/06/22 0830 Signed By: 08/06/22 0843 Normal [facility] Alanine aminotransferase [En zymatic activity/volume] in Serum or PlasmaOrdered By: Camacho Ladd on 08-05-2022 ALT [Catalytic activity/Vol] 16 U/L 7-52 [facility] Albumin [Mass/volume] in Ser um or Plasma by Bromocresol green (BCG) dye binding methoOrdered By: Camacho Ladd on 08-05-2022 Albumin BCG dye [Mass/Vol] 4.4 g/dL 3.5-5.7 [facility] Alkaline phosphatase [Enzyma tic activity/volume] in Serum or PlasmaOrdered By: Camacho Ladd on 08-05-2022 ALP [Catalytic activity/Vol] 61 U/L 34-104 [facility] Aspartate aminotransferase [ Enzymatic activity/volume] in Serum or PlasmaOrdered By: Camacho Ladd on 08-05-2022 AST [Catalytic activity/Vol] 21 U/L 13-39 [facility] Automated erythrocytes count in urine sediment (number/area)Ordered By: Camacho Ladd on 08-05-2022 RBC Auto (Urine sed) [#/Area] 0-1 [HPF] 0-4 [facility] Automated leukocytes count i n urine sediment (number/area)Ordered By: Camacho Ladd on 08-05-2022 WBC Auto (Urine sed) [#/Area] 1-2 [HPF] 0-4 [facility] Basic Metabolic Panelon 07-21 Anion gap [Moles/Vol] 17.8 mmol/L High 6.0-15.0 [facility] Comment on above: Performed By: #### H S TROP, HEPATIC, LIPASE, CBC, BMP #### [facility] [address] Calcium [Mass/Vol] 9.7 mg/dL Normal 8.6-10.3 [facility] Comment on above: Performed By: #### H S TROP, HEPATIC, LIPASE, CBC, BMP #### [facility] [address] [place] [address] [place] Chloride [Moles/Vol] 87 mmol/L Low 98-107 [facility] Comment on above: Performed By: #### H S TROP, HEPATIC, LIPASE, CBC, BMP #### [facility] [address] [place] [address] [place] CO2 [Moles/Vol] 23.2 mmol/L Normal 21.0-31.0 [facility] Comment on above: Performed By: #### H S TROP, HEPATIC, LIPASE, CBC, BMP #### [facility] [address] Creatinine [Mass/Vol] 1.03 mg/dL Normal 0.60-1.20 [facility] Comment on above: Performed By: #### H S TROP, HEPATIC, LIPASE, CBC, BMP #### [facility] [address] Creatinine Clr Calc Pharmacy 35.13 [facility] Comment on above: Performed By: #### H S TROP, HEPATIC, LIPASE, CBC, BMP #### [place] [address] [place] GFR/1.73 sq M.predicted MDRD (S/P/Bld) [Vol rate/Area] 53.284 mL/min/{1.73_m2} [facility] Comment on above: Performed By: #### H S TROP, HEPATIC, LIPASE, CBC, BMP #### [address] Glucose [Mass/Vol] 156 mg/dL High 70-100 [facility] Comment on above: Result Comment: [facility] Glucose Reference Range is dependent on time and content of last meal. Glucose of more than 200 mg/dL in a nonstressed, ambulatory subject supports the diagnosis of Diabetes Mellitus. ADA recommended reference range Performed By: #### H S TROP, HEPATIC, LIPASE, CBC, BMP #### [address] Potassium [Moles/Vol] 3.0 mmol/L Low 3.5-5.1 [facility] Comment on above: Performed By: #### H S TROP, HEPATIC, LIPASE, CBC, BMP #### [place] [address] [place] Sodium [Moles/Vol] 125 mmol/L Low 136-145 [facility] Comment on above: Performed By: #### H S TROP, HEPATIC, LIPASE, CBC, BMP #### [place] [address] [place] Urea nitrogen [Mass/Vol] 12 mg/dL Normal 7-25 [facility] Comment on above: Performed By: #### H S TROP, HEPATIC, LIPASE, CBC, BMP #### [facility] [address] Basophils Auto (Bld) [#/Vol] Ordered By: Camacho Ladd on 08-05-2022 Basophils (Bld) [#/Vol] 0.1 10*3/uL 0.0-0.2 [facility] Basophils/100 WBC Auto (Bld) Ordered By: Camacho Ladd on 08-05-2022 Basophils/100 WBC (Bld) 0.4 % . F [facility] Bilirubin Test strip Ql (U)O rdered By: Camacho Ladd on 08-05-2022 Bilirubin Ql (U) Negative Negative [facility] Bilirubin.direct [Mass/volum e] in Serum or PlasmaOrdered By: Camahco Ladd on 08-05-2022 Bilirubin.direct [Mass/Vol] 0.10 mg/dL 0.03-0.18 [facility] Bilirubin.total [Mass/volume ] in Serum or PlasmaOrdered By: Camacho Ladd on 08-05-2022 Bilirubin [Mass/Vol] 0.7 mg/dL 0.3-1.0 [facility] Calcium [Mass/volume] in Ser um or PlasmaOrdered By: Camacho Ladd on 08-05-2022 Calcium [Mass/Vol] 9.7 mg/dL 8.6-10.3 [facility] Carbon dioxide, total [Moles /volume] in Serum or PlasmaOrdered By: Camacho Ladd on 08-05-2022 CO2 [Moles/Vol] 23.2 mmol/L 21.0-31.0 [facility] Chloride [Moles/volume] in S willa or PlasmaOrdered By: Camacho Ladd on 08-05-2022 Chloride [Moles/Vol] 87 mmol/L 98-107 [facility] Color Auto (U)Ordered By: Ender Ladd on 08-05-2022 Color (U) Yellow Yellow [facility] Complete Blood Count Auto Di ffon 08-05-2022 Basophils (Bld) [#/Vol] 0.1 10*3/uL Normal 0.0-0.2 [facility] Comment on above: Result Comment: PERF ORMED BY: [place] [address] PATHOLOGIST TRACK PATROL GOSIA MCADAMS M.D. Performed By: #### H S TROP, HEPATIC, LIPASE, CBC, BMP #### [address] Basophils/100 WBC (Bld) 0.4 % Normal . [facility] Comment on above: Performed By: #### H S TROP, HEPATIC, LIPASE, CBC, BMP #### [address] Eosinophils (Bld) [#/Vol] 0.1 10*3/uL Normal 0.0-0.45 [facility] Comment on above: Performed By: #### H S TROP, HEPATIC, LIPASE, CBC, BMP #### [address] Eosinophils/100 WBC (Bld) 0.6 % Normal . [facility] Comment on above: Performed By: #### H S TROP, HEPATIC, LIPASE, CBC, BMP #### [address] Erythrocyte distribution width (RBC) [Ratio] 13.6 % Normal 11.9-15.3 [facility] Comment on above: Performed By: #### H S TROP, HEPATIC, LIPASE, CBC, BMP #### [address] Hematocrit (Bld) [Volume fraction] 37.3 % Normal 34.0-46.4 [facility] Comment on above: Performed By: #### H S TROP, HEPATIC, LIPASE, CBC, BMP #### [address] Hemoglobin (Bld) [Mass/Vol] 13.0 g/dL Normal 11.8-15.4 [facility] Comment on above: Performed By: #### H S TROP, HEPATIC, LIPASE, CBC, BMP #### [place] [id number] [place] Lymphocytes (Bld) [#/Vol] 3.1 10*3/uL Normal 1.00-4.8 [facility] Comment on above: Performed By: #### H S TROP, HEPATIC, LIPASE, CBC, BMP #### [facility] [address] [place] [address] Lymphocytes/100 WBC (Bld) 21.9 % Normal . [facility] Comment on above: Performed By: #### H S TROP, HEPATIC, LIPASE, CBC, BMP #### [address] MCH (RBC) [Entitic mass] 31.6 pg Normal 24.7-34.3 [facility] Comment on above: Performed By: #### H S TROP, HEPATIC, LIPASE, CBC, BMP #### [address] MCV (RBC) [Entitic vol] 90.4 fL Normal 80-100 [facility] Comment on above: Performed By: #### H S TROP, HEPATIC, LIPASE, CBC, BMP #### [address] Mean Corpuscular HGB Conc 35.0 g/dL Normal 32.0-35.0 [facility] Comment on above: Performed By: #### H S TROP, HEPATIC, LIPASE, CBC, BMP #### [address] Monocytes (Bld) [#/Vol] 1.4 10*3/uL High 0.0-0.8 [facility] Comment on above: Performed By: #### H S TROP, HEPATIC, LIPASE, CBC, BMP #### [address] Monocytes/100 WBC (Bld) 20.58 % High 0.00-20.00 [facility] Comment on above: Result Comment: For adults in ED, MDW > 20.0 may be associated with a higher risk of sepsis during the first 12 hrs of hospital admission Performed By: #### H S TROP, HEPATIC, LIPASE, CBC, BMP #### [address] Monocytes/100 WBC (Bld) 9.6 % Normal . F [facility] Comment on above: Performed By: #### H S TROP, HEPATIC, LIPASE, CBC, BMP #### [address] Neutrophils (Bld) [#/Vol] 9.6 10*3/uL High 1.8-7.7 [facility] Comment on above: Performed By: #### H S TROP, HEPATIC, LIPASE, CBC, BMP #### [address] Neutrophils/100 WBC (Bld) 67.5 % Normal . [facility] Comment on above: Performed By: #### H S TROP, HEPATIC, LIPASE, CBC, BMP #### [address] NRBC% 0.1 /100{WBC} Normal 0-0.5 [facility] Comment on above: Performed By: #### H S TROP, HEPATIC, LIPASE, CBC, BMP #### [address] Platelet mean volume (Bld) [Entitic vol] 7.2 fL Normal 6.3-10.7 [facility] Comment on above: Performed By: #### H S TROP, HEPATIC, LIPASE, CBC, BMP #### [place] [address] [place] Platelets (Bld) [#/Vol] 500 10*3/uL High 150-450 [facility] Comment on above: Performed By: #### H S TROP, HEPATIC, LIPASE, CBC, BMP #### [address] RBC (Bld) [#/Vol] 4.13 10*6/uL Normal 3.60-5.00 [facility] Comment on above: Performed By: #### H S TROP, HEPATIC, LIPASE, CBC, BMP #### [place] [address] [place] WBC (Bld) [#/Vol] 14.2 10*3/uL High 3.8-11.6 [facility] Comment on above: Performed By: #### H S TROP, HEPATIC, LIPASE, CBC, BMP #### [facility] [address] [id number] [place] Creatinine [Mass/volume] in Serum or PlasmaOrdered By: Camacho Ladd on 08-05-2022 Creatinine [Mass/Vol] 1.03 mg/dL 0.60-1.20 [facility] Dipstick and Microscopicon 0 08-05-2022 Appearance (U) Cloudy Critically abnormal Clear [facility] Comment on above: Order Comment: Name Collection Type:: Clean-Voided Midstream Performed By: #### A DDONUAPLUS #### [facility] [address] Bacteria,Urine None Seen Normal None Seen [facility] Comment on above: Order Comment: Name Collection Type:: Clean-Voided Midstream Performed By: #### A DDONUAPLUS #### [facility] [address] [place] [address] [place] Bilirubin,Urine Negative Normal Negative [facility] Comment on above: Order Comment: Name Collection Type:: Clean-Voided Midstream Performed By: #### A DDONUAPLUS #### [facility] [address] [id number] [place] Color (U) Yellow Normal Yellow [facility] Comment on above: Order Comment: Name Collection Type:: Clean-Voided Midstream Performed By: #### A DDONUAPLUS #### [facility] [address] [id number] [place] Glucose Ql (U) Normal Normal Normal [facility] Comment on above: Order Comment: Name Collection Type:: Clean-Voided Midstream Performed By: #### A DDONUAPLUS #### [facility] [address] [id number] [place] Hyaline Casts,Urine None Seen Normal 0-8 [facility] Comment on above: Order Comment: Name Collection Type:: Clean-Voided Midstream Result Comment: PERF ORMED BY: [place] [address] PATHOLOGIST TRACK PATROL GOSIA MCADAMS M.D. Performed By: #### A DDONUAPLUS #### [address] Ketones Ql (U) Negative Normal Negative [facility] Comment on above: Order Comment: Name Collection Type:: Clean-Voided Midstream Performed By: #### A DDONUAPLUS #### [address] Leukocyte esterase Test strip Ql (U) 1+ High Negative [facility] Comment on above: Order Comment: Name Collection Type:: Clean-Voided Midstream Performed By: #### A DDONUAPLUS #### [place] [address] [place] Nitrite,Urine Negative Normal Negative [facility] Comment on above: Order Comment: Name Collection Type:: Clean-Voided Midstream Performed By: #### A DDONUAPLUS #### [place] [address] [place] Occult Blood,Urine Negative Normal Negative [facility] Comment on above: Order Comment: Name Collection Type:: Clean-Voided Midstream Result Comment: PERF ORMED BY: [place] [address] PATHOLOGIST TRACK PATROL GOSIA MCADAMS M.D. Performed By: #### A DDONUAPLUS #### [place] [address] [place] pH (U) 7.0 [pH] Normal 5.0-9.0 [facility] Comment on above: Order Comment: Name Collection Type:: Clean-Voided Midstream Performed By: #### A DDONUAPLUS #### [place] [address] [place] Protein,Urine Negative Normal Negative [facility] Comment on above: Order Comment: Name Collection Type:: Clean-Voided Midstream Performed By: #### A DDONUAPLUS #### [address] [place] [address] [place] RBC LM.HPF (Urine sed) [#/Area] 0 /[HPF] Normal 0-4 [facility] Comment on above: Order Comment: Name Collection Type:: Clean-Voided Midstream Performed By: #### A DDONUAPLUS #### [facility] [address] [place] [address] Specificy Sharon,Urine 1.009 Normal 1.001-1.030 [facility] Comment on above: Order Comment: Name Collection Type:: Clean-Voided Midstream Performed By: #### A DDONUAPLUS #### [facility] [address] [place] [address] Squamous Epithelial Cell,Urine 0-1 Normal 0-2 [facility] Comment on above: Order Comment: Name Collection Type:: Clean-Voided Midstream Performed By: #### A DDONUAPLUS #### [facility] [address] [place] [address] Urobilinogen,Urine Normal Normal Normal [facility] Comment on above: Order Comment: Name Collection Type:: Clean-Voided Midstream Performed By: #### A DDONUAPLUS #### [facility] [address] [place] [address] [place] WBC,Urine 1-2 Normal 0-4 [facility] Comment on above: Order Comment: Name Collection Type:: Clean-Voided Midstream Performed By: #### A DDONUAPLUS #### [facility] [address] [place] [address] ECG 12 lead ECGon 08-05-2022 ECG 12 lead ECG [facility] [place] [address] [place] [address] Electrocardiograph Report Signed Patient: Hiram Madrid MR#: [id number] : 1935 Acct:[id number] Age/Sex: 86 / F ADM Date: 08/05/22 Loc: ER Room: Type: [facility] ER Attending Dr: Ordering Provider: Camacho [...] branch block Confirmed by Camacho Ladd DO ([id number]) on 08/06/2022 1:49:12 AM Referred By: Electronically Signed By:Camacho Ladd DO Transcribed By: MUS Signed By Camacho Ladd DO [id number] Normal [facility] Eosinophils Auto (Bld) [#/Vo l]Ordered By: Camacho Ladd on 08-05-2022 Eosinophils (Bld) [#/Vol] 0.1 10*3/uL 0.0-0.45 [facility] Eosinophils/100 WBC Auto (Bl d)Ordered By: Camacho Ladd on 08-05-2022 Eosinophils/100 WBC (Bld) 0.6 % . [facility] Erythrocyte distribution wid th Auto (RBC) [Ratio]Ordered By: Camacho Ladd on 08-05-2022 Erythrocyte distribution width (RBC) [Ratio] 13.6 % 11.9-15.3 [facility] Globulin Calc (S) [Mass/Vol] Ordered By: Camacho Ladd on 08-05-2022 Globulin (S) [Mass/Vol] 2.9 g/dL [facility] Glucose [Mass/volume] in Ser um or PlasmaOrdered By: Camacho Ladd on 08-05-2022 Glucose [Mass/Vol] 156 mg/dL 70-100 [facility] Comment on above: ADA recommended refe rence rangeRandom Glucose Reference Range is dependent on time and content of last meal. Glucose of more than 200 mg/dL in a nonstressed, ambulatory subject supports the diagnosis of Diabetes Mellitus. Hematocrit Auto (Bld) [Volum e fraction]Ordered By: Camacho Ladd on 08-05-2022 Hematocrit (Bld) [Volume fraction] 37.3 % 34.0-46.4 [facility] Hemoglobin [Mass/volume] in BloodOrdered By: Camacho Ladd on 08-05-2022 Hemoglobin (Bld) [Mass/Vol] 13.0 g/dL 11.8-15.4 [facility] Hepatic Panelon 08-05-2022 Albumin [Mass/Vol] 4.4 g/dL Normal 3.5-5.7 [facility] Comment on above: Performed By: #### H S TROP, HEPATIC, LIPASE, CBC, BMP #### [facility] [address] Albumin/Globulin [Mass ratio] 1.5 {ratio} Normal [facility] Comment on above: Performed By: #### H S TROP, HEPATIC, LIPASE, CBC, BMP #### [facility] [address] ALP [Catalytic activity/Vol] 61 U/L Normal 34-104 [facility] Comment on above: Performed By: #### H S TROP, HEPATIC, LIPASE, CBC, BMP #### [facility] [address] [place] [address] [place] ALT [Catalytic activity/Vol] 16 U/L Normal 7-52 [facility] Comment on above: Performed By: #### H S TROP, HEPATIC, LIPASE, CBC, BMP #### [facility] [address] [place] [address] [place] AST [Catalytic activity/Vol] 21 U/L Normal 13-39 [facility] Comment on above: Performed By: #### H S TROP, HEPATIC, LIPASE, CBC, BMP #### [facility] [address] [place] [address] [place] Bilirubin [Mass/Vol] 0.7 mg/dL Normal 0.3-1.0 [facility] Comment on above: Performed By: #### H S TROP, HEPATIC, LIPASE, CBC, BMP #### [facility] [address] [place] [address] [place] Bilirubin,Indirect 0.6 mg/dL Normal [facility] Comment on above: Performed By: #### H S TROP, HEPATIC, LIPASE, CBC, BMP #### [facility] [address] [place] [address] [place] Bilirubin.indirect [Mass/Vol] 0.10 mg/dL Normal 0.03-0.18 [facility] Comment on above: Performed By: #### H S TROP, HEPATIC, LIPASE, CBC, BMP #### [facility] [address] Globulin (S) [Mass/Vol] 2.9 g/dL Normal [facility] Comment on above: Performed By: #### H S TROP, HEPATIC, LIPASE, CBC, BMP #### [facility] [address] Protein [Mass/Vol] 7.3 g/dL Normal 6.4-8.9 [facility] Comment on above: Performed By: #### H S TROP, HEPATIC, LIPASE, CBC, BMP #### [address] Ketones Auto test strip (U) [Mass/Vol]Ordered By: Camacho Ladd on 08-05-2022 Ketones (U) [Mass/Vol] Negative Negative [facility] - UrinalysisOrder ed By: Camacho Ladd on 08-05-2022 Hyaline casts LM Ql (Urine sed) None seen [LPF] 0-8 [facility] Leukocytes [#/volume] correc sofiya for nucleated erythrocytes in Blood by Automated counOrdered By: Camacho Ladd on 08-05-2022 WBC corrected for nucl RBC Auto (Bld) [#/Vol] 14.2 10*3/uL 3.8-11.6 [facility] Lipaseon 08-05-2022 Lipase [Catalytic activity/Vol] 23.0 U/L Normal 11.0-82.0 [facility] Comment on above: Result Comment: PERF ORMED BY: [address] [place] [address] PATHOLOGIST TRACK PATROL GOSIA MCADAMS M.D. Performed By: #### H S TROP, HEPATIC, LIPASE, CBC, BMP #### [facility] [address] [place] [address] Lipase [Enzymatic activity/v olume] in Serum or PlasmaOrdered By: Camacho Ladd on 08-05-2022 Lipase [Catalytic activity/Vol] 23.0 U/L 11.0-82.0 [facility] Lymphocytes Auto (Bld) [#/Vo l]Ordered By: Camacho Ladd on 08-05-2022 Lymphocytes (Bld) [#/Vol] 3.1 10*3/uL 1.00-4.8 [facility] Lymphocytes/100 WBC Auto (Bl d)Ordered By: Camacho Ladd on 08-05-2022 Lymphocytes/100 WBC (Bld) 21.9 % . [facility] MCH Auto (RBC) [Entitic mass ]Ordered By: Camacho Ladd on 08-05-2022 MCH (RBC) [Entitic mass] 31.6 pg 24.7-34.3 [facility] MCHC Auto (RBC) [Mass/Vol]Or dered By: Camacho Ladd on 08-05-2022 MCHC (RBC) [Mass/Vol] 35.0 g/dL 32.0-35.0 [facility] MCV Auto (RBC) [Entitic vol] Ordered By: Camacho Ladd on 08-05-2022 MCV (RBC) [Entitic vol] 90.4 fL 80-100 [facility] Monocyte distribution width [Entitic volume] in Blood by AutomatedOrdered By: Camacho Ladd on 08-05-2022 Monocyte distribution width Auto (Bld) [Entitic vol] 20.58 % 0.00-20.00 [facility] Comment on above: For adults in ED, MD W > 20.0 may be associated with a higher risk of sepsis during the first 12 hrs of hospital admission Monocytes Auto (Bld) [#/Vol] Ordered By: Camacho Ladd on 08-05-2022 Monocytes (Bld) [#/Vol] 1.4 10*3/uL 0.0-0.8 [facility] Monocytes/100 WBC Auto (Bld) Ordered By: Camacho Ladd on 08-05-2022 Monocytes/100 WBC (Bld) 9.6 % . [facility] Neutrophils Auto (Bld) [#/Vo l]Ordered By: Camacho Ladd on 08-05-2022 Neutrophils (Bld) [#/Vol] 9.6 10*3/uL 1.8-7.7 [facility] Neutrophils/100 WBC Auto (Bl d)Ordered By: Camacho Ladd on 08-05-2022 Neutrophils/100 WBC (Bld) 67.5 % . [facility] Nitrite Test strip Ql (U)Ord ered By: Camacho Ladd on 08-05-2022 Nitrite Ql (U) Negative Negative [facility] No Panel InformationOrdered By: Camacho Ladd on 08-05-2022 Estimated GFR (CKD-EPI) 53.284 mL/Min [facility] Creatinine Clearance (Chem 35.13 [facility] Nucleated erythrocytes [Pres ence] in Blood by Automated countOrdered By: Camacho Ladd on 08-05-2022 Nucleated RBC Auto Ql (Bld) 0.1 /100{WBC} 0-0.5 [facility] Platelet mean volume Auto (B ld) [Entitic vol]Ordered By: Camacho Ladd on 08-05-2022 Platelet mean volume (Bld) [Entitic vol] 7.2 fL 6.3-10.7 [facility] Platelets Auto (Bld) [#/Vol] Ordered By: Camacho Ladd on 08-05-2022 Platelets (Bld) [#/Vol] 500 10*3/uL 150-450 [facility] Potassium [Moles/volume] in Serum or PlasmaOrdered By: Camacho Ladd on 08-05-2022 Potassium [Moles/Vol] 3.0 mmol/L 3.5-5.1 [facility] Protein Auto test strip (U) [Mass/Vol]Ordered By: Camacho Ladd on 08-05-2022 Protein (U) [Mass/Vol] Negative Negative [facility] Protein [Mass/volume] in Ser um or PlasmaOrdered By: Camacho Ladd on 08-05-2022 Protein [Mass/Vol] 7.3 g/dL 6.4-8.9 [facility] RBC Auto (Bld) [#/Vol]Ordere d By: Camacho Ladd on 06-16-2023 RBC (Bld) [#/Vol] 4.13 10*6/uL 3.60-5.00 [facility] Serum or plasma albumin/glob ulin mass ratioOrdered By: Camacho Ladd on 08-05-2022 Albumin/Globulin [Mass ratio] 1.5 {ratio} [facility] Serum or plasma anion gap de terminationOrdered By: Camacho Ladd on 08-05-2022 Anion gap [Moles/Vol] 17.8 mmol/L 6.0-[facility] or plasma non-glucuron idated bilirubin measurement (mass/volume)Ordered By: Camacho Ladd on 08-05-2022 Bilirubin.indirect [Mass/Vol] 0.6 mg/dL [facility] Sodium [Moles/volume] in Ser um or PlasmaOrdered By: Camacho Ladd on 08-05-2022 Sodium [Moles/Vol] 125 mmol/L 136-145 [facility] Specific gravity Auto test s trip (U) [Rel density]Ordered By: Camacho Ladd on 08-05-2022 Specific gravity (U) [Rel density] 1.009 1.001-1.030 [facility] Squamous epithelial cells de tection in urine sediment by light microscopyOrdered By: Camacho Ladd on 08-05-2022 Epithelial cells.squamous LM Ql (Urine sed) 0-1 [HPF] 0-2 [facility] Troponin I High Sensitivityo n 08-05-2022 Troponin I High Sensitivity 7.7 pg/mL Normal 0.0-15.0 [facility] Comment on above: Result Comment: PERF ORMED BY: [place] [address] PATHOLOGIST TRACK PATROL GOSIA MCADAMS M.D. Performed By: #### H S TROP, HEPATIC, LIPASE, CBC, BMP #### [address] Troponin I.cardiac [Mass/vol ume] in Serum or Plasma by Detection limit <= 0.01 ng/Ordered By: Camacho Ladd on 08-05-2022 Troponin I.cardiac DL <= 0.01 ng/mL [Mass/Vol] 7.7 pg/mL 0.0-15.0 [facility] Urea nitrogen [Mass/volume] in Serum or PlasmaOrdered By: Camacho Ladd on 08-05-2022 Urea nitrogen [Mass/Vol] 12 mg/dL 7-25 [facility] Urine bacteria detection by automated methodOrdered By: Camacho Ladd on 08-05-2022 Bacteria Auto Ql (U) None seen None Seen [facility] Urine clarity by refractomet ry automatedOrdered By: Camacho Ladd on 08-05-2022 Clarity Refractometry automated (U) Cloudy Clear [facility] Urine glucose measurement by automated test strip (mass/volume)Ordered By: Camacho Ladd on 08-05-2022 Glucose Auto test strip (U) [Mass/Vol] Normal mg/dL Normal [facility] Urine hemoglobin detection b y automated test stripOrdered By: Camacho Ladd on 08-05-2022 Hemoglobin Auto test strip Ql (U) Negative Negative [facility] Urine leukocyte esterase det ection by automated test stripOrdered By: Camacho Ladd on 08-05-2022 Leukocyte esterase Auto test strip Ql (U) 1+ Negative [facility] Urobilinogen Auto test strip (U) [Mass/Vol]Ordered By: Camacho Ladd on 08-05-2022 Urobilinogen (U) [Mass/Vol] Normal mg/dL Normal [facility] WBC Auto (Bld) [#/Vol]Ordere d By: Camacho Ladd on 08-05-2022 WBC (Bld) [#/Vol] 14.2 10*3/uL 3.8-11.6 [facility] pH Auto test strip (U)Ordere d By: Camacho Ladd on 08-05-2022 pH (U) 7.0 [pH] 5.0-9.0 [facility] BNPon 06-13-2022 Natriuretic peptide B (Bld) [Mass/Vol] 142.0 pg/mL Normal <=1,800.0 [facility] Comment on above: Performed By: #### T , BMP #### [facility] [address] [place] [address] Dr. Tasha Dodson CBC AUTO DIFFon 06-13-2022 BASO # 0.1 103/ul Normal 0.0-0.1 [facility] Comment on above: Performed By: #### T SH, BMP #### [facility] [address] [place] [address] Dr. Tasha Dodson Basophils/100 WBC (Bld) 1.0 % Normal 0.2-2.0 [facility] Comment on above: Performed By: #### T SH, BMP #### [facility] [address] [place] [address] Dr. Tasha Dodson EO # 0.3 103/ul Normal 0.0-0.7 [facility] Comment on above: Performed By: #### T SH, BMP #### [facility] [address] [place] [address] Dr. Tasha Dodson Eosinophils/100 WBC (Bld) 2.6 % Normal 0.9-7.0 [facility] Comment on above: Performed By: #### T SH, BMP #### [facility] [address] [place] [address] Dr. Tasha Dodson Erythrocyte distribution width (RBC) [Ratio] 13.4 % Normal 11.0-15.0 [facility] Comment on above: Performed By: #### T SH, BMP #### [facility] [address] [place] [address] Dr. Tasha Dodson Hematocrit (Bld) [Volume fraction] 39.5 % Normal 36.0-48.0 [facility] Comment on above: Performed By: #### T SH, BMP #### [facility] [address] [place] [address] Dr. Tasha Dodson Hemoglobin (Bld) [Mass/Vol] 13.1 g/dL Normal 12.0-16.0 [facility] Comment on above: Performed By: #### T SH, BMP #### [facility] [address] [place] [address] Dr. Tasha Dodson IG # 0.07 10e3/ul Critically high 0.00-0.03 [facility] Comment on above: Performed By: #### T SH, BMP #### [facility] [address] [address] [address] Tasha Dodson IG % 0.6 % Critically high 0.0-0.5 [facility] Comment on above: Performed By: #### T SH, BMP #### [facility] [address] [address] [address] Tasha Dodson LYMPH # 2.5 103/ul Normal 1.2-3.8 [facility] Comment on above: Performed By: #### T SH, BMP #### [facility] [address] [address] [address] Tasha Dodson Lymphocytes/100 WBC (Bld) 22.9 % Normal 20.5-60.0 [facility] Comment on above: Performed By: #### T SH, BMP #### [facility] [address] [address] [address] Tasha Dodson MANUAL DIFF REQ NO Normal [facility] Comment on above: Performed By: #### T SH, BMP #### [facility] [address] [address] [address] Tasha Dodson MCH (RBC) [Entitic mass] 30.7 pg Normal 26.7-34.0 [facility] Comment on above: Performed By: #### T SH, BMP #### [facility] [address] [address] [address] Tasha Dodson MCHC (RBC) [Mass/Vol] 33.2 g/dL Normal 29.9-35.2 [facility] Comment on above: Performed By: #### T SH, BMP #### [facility] [address] [address] [address] Tasha Dodson MCV (RBC) [Entitic vol] 92.5 fL Normal 81.0-99.0 [facility] Comment on above: Performed By: #### T SH, BMP #### [facility] [address] [address] [address] Tasha Dodson MONO # 0.8 103/ul Normal 0.3-0.8 [facility] Comment on above: Performed By: #### T SH, BMP #### [facility] [address] [address] [address] Tasha Dodson Monocytes/100 WBC (Bld) 7.0 % Normal 1.7-12.0 [facility] Comment on above: Performed By: #### T SH, BMP #### [facility] [address] [place] [address] Dr. Tasha Dodson NEUT # 7.2 103/ul Critically high 1.4-6.5 [facility] Comment on above: Performed By: #### T SH, BMP #### [facility] [address] [place] [address] Dr. Tasha Dodson Neutrophils/100 WBC (Bld) 65.9 % Normal 43.0-75.0 [facility] Comment on above: Performed By: #### T SH, BMP #### [facility] [address] [place] [address] Dr. Tasha Dodson Platelet mean volume (Bld) [Entitic vol] 8.0 fL Critically low 9.5-13.5 [facility] Comment on above: Performed By: #### T SH, BMP #### [facility] [address] [place] [address] Dr. Tasha Dodson PLT 449 103/ul Normal 150-450 [facility] Comment on above: Performed By: #### T SH, BMP #### [facility] [address] [place] [address] Dr. Tasha Dodson RBC 4.27 106/ul Normal 4.20-5.40 [facility] Comment on above: Performed By: #### T SH, BMP #### [facility] [address] [place] [address] Dr. Tasha Dodson WBC 10.9 103/ul Normal 4.0-11.0 [facility] Comment on above: Performed By: #### T SH, BMP #### [facility] [address] [place] [address] Dr. Tasha Dodson FREE THYROXINE INDEX T7on FTI 3.67 Normal 1.30-4.50 [facility] Comment on above: Performed By: #### T SH, BMP #### [facility] [address] [place] [address] Dr. Tasha Dodson T3U 36.0 % Normal 30.0-39.0 [facility] Comment on above: Performed By: #### T SH, BMP #### [facility] [address] [place] [address] Dr. Tasha Dodson T4 [Mass/Vol] 10.20 ug/dL Normal 4.80-13.90 [facility] Comment on above: Performed By: #### T SH, BMP #### [facility] [address] [place] [address] Dr. Tasha Dodson PROF CHEM 8 (BAS METB)on Anion gap [Moles/Vol] 13.8 mmol/L Normal [facility] Comment on above: Performed By: #### T SH, BMP #### [facility] [address] [place] [address] Dr. Tasha Dodson Calcium [Mass/Vol] 9.8 mg/dL Normal 8.5-10.1 [facility] Comment on above: Performed By: #### T SH, BMP #### [facility] [address] [place] [address] Dr. Tasha Dodson Chloride [Moles/Vol] 95 mmol/L Critically low 98-107 [facility] Comment on above: Performed By: #### T SH, BMP #### [facility] [address] [place] [address] Dr. Tasha Dodson CO2 [Moles/Vol] 30.5 mmol/L Normal 21.0-32.0 [facility] Comment on above: Performed By: #### T SH, BMP #### [facility] [address] [place] [address] Dr. Tasha Dodson Creatinine [Mass/Vol] 0.78 mg/dL Normal 0.55-1.02 [facility] Comment on above: Performed By: #### T SH, BMP #### [facility] [address] [place] [address] Dr. Tasha Dodson EGFR-AF MOZAMBICAN >60 Normal >=60 [facility] Comment on above: Performed By: #### T SH, BMP #### [facility] [address] [place] [address] Dr. Tasha Dodson EGFR-NON AF MOZAMBICAN >60 Normal >=60 [facility] Comment on above: Performed By: #### T SH, BMP #### [facility] [address] [place] [address] Dr. Tasha Dodson Glucose [Mass/Vol] 108 mg/dL Critically high 74-106 [facility] Comment on above: Performed By: #### T SH, BMP #### [facility] [address] [place] [address] Dr. Tasha Dodson Potassium [Moles/Vol] 3.3 mmol/L Critically low 3.5-5.1 [facility] Comment on above: Performed By: #### T SH, BMP #### [facility] [address] [place] [address] Dr. Tasha Dodson Sodium [Moles/Vol] 136 mmol/L Normal 136-145 [facility] Comment on above: Performed By: #### T SH, BMP #### [facility] [address] [place] [address] Dr. Tasha Dodson Urea nitrogen [Mass/Vol] 11.0 mg/dL Normal 7.0-18.0 [facility] Comment on above: Performed By: #### T SH, BMP #### [facility] [address] [place] [address] Dr. Tasha Dodson Urea nitrogen/Creatinine [Mass ratio] 14.1 mg/mg Normal [facility] Comment on above: Performed By: #### T SH, BMP #### [facility] [address] [place] [address] Dr. Tasha Dodson TSHon 06-13-2022 TSH 2.583 uIU/mL Normal 0.358-3.740 [facility] Comment on above: Performed By: #### T SH, BMP #### [facility] [address] [place] [address] Dr. Tasha Dodson UA (CLEAN/CATCH) HARDNESS INSPECTOR/MICRO I F IND.on 06-13-2022 Bilirubin Ql (U) Negative Normal NEGATIVE [facility] Comment on above: Performed By: #### T SH, BMP #### [facility] [address] [place] [address] Dr. Tasha Dodson Clarity (U) CLEAR Normal CLEAR [facility] Comment on above: Performed By: #### T SH, BMP #### [facility] [address] [place] [address] Dr. Tasha Dodson Color (U) LT. YELLOW Normal YELLOW [facility] Comment on above: Performed By: #### T SH, BMP #### [facility] [address] [place] [address] Dr. Tasha Dodson Glucose Ql (U) Negative Normal NEGATIVE [facility] Comment on above: Performed By: #### T SH, BMP #### [facility] [address] [place] [address] Dr. Tasha Dodson Hemoglobin Ql (U) Negative Normal NEGATIVE [facility] Comment on above: Performed By: #### T SH, BMP #### [facility] [address] [place] [address] Dr. Tasha Dodson Ketones Ql (U) Negative Normal NEGATIVE [facility] Comment on above: Performed By: #### T SH, BMP #### [facility] [address] [place] [address] Dr. Tasha Dodson LEUKOCYTES Negative Normal NEGATIVE [facility] Comment on above: Performed By: #### T SH, BMP #### [facility] [address] [place] [address] Dr. Tasha Dodson Nitrite Ql (U) Negative Normal NEGATIVE [facility] Comment on above: Performed By: #### T SH, BMP #### [facility] [address] [place] [address] Dr. Tasha Dodson pH (U) 7.0 [pH] Normal 5-9 [facility] Comment on above: Performed By: #### T SH, BMP #### [facility] [address] [place] [address] Dr. Tasha Dodson SPEC GRAVITY 1.010 Normal 1.005-<=1.0 25 [facility] Comment on above: Performed By: #### T SH, BMP #### [facility] [address] [place] [address] Dr. Tasha Dodson UA PROTEIN Negative Normal NEGATIVE/ TRACE [facility] Comment on above: Performed By: #### T SH, BMP #### [facility] [address] [place] [address] Dr. Tasha Dodson UR MICRO IND NOT INDICATED Normal [facility] Comment on above: Performed By: #### T SH, BMP #### [facility] [address] [place] [address] Dr. Tasha Dodson Urobilinogen Qn (U) 0.2 {Juan'U}/dL Normal 0.2 - 1. 0 [facility] Comment on above: Performed By: #### T JESI, BMP #### [facility] [address] [place] [address] Dr. Tasha Dodson ECHOCARDIO M/2D COMPLETEon 0 04-18-2022 ECHOCARDIO M/2D COMPLETE Patient: HIRAM MADRID Exam Date: 04/18/2022 : 1935 Gender:F Ordering : DR VALERIE DARDEN M.D. Admission #: [id number] Family : DR ADDY DANIELS . Order #: [id number] CLICK HERE TO VIEW EXAM ECHOCARDIOGRAM REPORT [...] Barragan M.D. on 04/19/2022 at 18:55 Normal [facility] Office Visiton 04-04-2022 Follow-up visit [id number] Hiram Madrid 1935 F Date Provider Department Center 04/04/2022 Yazmin-VALERIE DARDEN [facility] Family History Problem Relation Age of Onset Hypertension Mother Lupus Mother Coronary artery disease Mother Heart attack Mother Hypertension Father Aneurysm Father Coronary artery disease Father Hypertension Sister Lupus Sister Family Status - Relation Status Age at Mother Father Sister Level of Service:65953 [place] OFFICE/OUTPATIENT ESTABLISHED MOD MDM 30-39 MIN Reason for Visit and Comments: Hyperlipidemia [182] Hypertension [623647] carotid artery stenosis [Other] 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 Tasha Dodson Basophils/100 WBC (Bld) 0.6 % Normal 0.2-2.0 [facility] Comment on above: Performed By: #### C BC #### [facility] [address] [address] [address] Tasha Dodson EO # 0.1 103/ul Normal 0.0-0.7 [facility] Comment on above: Performed By: #### C BC #### [facility] [address] [place] [address] Dr. Tasha Dodson Eosinophils/100 WBC (Bld) 0.9 % Normal 0.9-7.0 [facility] Comment on above: Performed By: #### C BC #### [facility] [address] [place] [address] Dr. Tasha Dodson Erythrocyte distribution width (RBC) [Ratio] 13.0 % Normal 11.0-15.0 [facility] Comment on above: Performed By: #### C BC #### [facility] [address] [place] [address] Dr. Tasha Dodson Hematocrit (Bld) [Volume fraction] 38.5 % Normal 36.0-48.0 [facility] Comment on above: Performed By: #### C BC #### [facility] [address] [place] [address] Dr. Tasha Dodson Hemoglobin (Bld) [Mass/Vol] 13.4 g/dL Normal 12.0-16.0 [facility] Comment on above: Performed By: #### C BC #### [facility] [address] [place] [address] Dr. Tasha Dodson IG # 0.07 10e3/ul Critically high 0.00-0.03 [facility] Comment on above: Performed By: #### C BC #### [facility] [address] [place] [address] Dr. Tasha Dodson IG % 0.5 % Normal 0.0-0.5 [facility] Comment on above: Performed By: #### C BC #### [facility] [address] [place] [address] Dr. Tasha Dodson LYMPH # 2.8 103/ul Normal 1.2-3.8 [facility] Comment on above: Performed By: #### C BC #### [facility] [address] [place] [address] Dr. Tasha Dodson Lymphocytes/100 WBC (Bld) 20.5 % Normal 20.5-60.0 [facility] Comment on above: Performed By: #### C BC #### [facility] [address] [place] [address] Dr. Tasha Dodson MANUAL DIFF REQ NO Normal [facility] Comment on above: Performed By: #### C BC #### [facility] [address] [place] [address] Dr. Tasha Dodson MCH (RBC) [Entitic mass] 30.7 pg Normal 26.7-34.0 [facility] Comment on above: Performed By: #### C BC #### [facility] [address] [place] [address] Dr. Tasha Dodson MCHC (RBC) [Mass/Vol] 34.8 g/dL Normal 29.9-35.2 [facility] Comment on above: Performed By: #### C BC #### [facility] [address] [place] [address] Dr. Tasha Dodson MCV (RBC) [Entitic vol] 88.3 fL Normal 81.0-99.0 [facility] Comment on above: Performed By: #### C BC #### [facility] [address] [place] [address] Dr. Tasha Dodson MONO # 1.0 103/ul Critically high 0.3-0.8 [facility] Comment on above: Performed By: #### C BC #### [facility] [address] [place] [address] Dr. Tasha Dodson Monocytes/100 WBC (Bld) 7.4 % Normal 1.7-12.0 [facility] Comment on above: Performed By: #### C BC #### [facility] [address] [place] [address] Dr. Tasha Dodson NEUT # 9.5 103/ul Critically high 1.4-6.5 [facility] Comment on above: Performed By: #### C BC #### [facility] [address] [place] [address] Dr. Tasha Dodson Neutrophils/100 WBC (Bld) 70.1 % Normal 43.0-75.0 [facility] Comment on above: Performed By: #### C BC #### [facility] [address] [address] [address] Tasha oDdson Platelet mean volume (Bld) [Entitic vol] 8.0 fL Critically low 9.5-13.5 [facility] Comment on above: Performed By: #### C BC #### [facility] [address] [place] [address] Dr. Tasha Dodson PLT 492 103/ul Critically high 150-450 [facility] Comment on above: Performed By: #### C BC #### [facility] [address] [place] [address] Dr. Tasha Dodson RBC 4.36 106/ul Normal 4.20-5.40 [facility] Comment on above: Performed By: #### C BC #### [facility] [address] [place] [address] Dr. Tasha Dodson WBC 13.5 103/ul Critically high 4.0-11.0 [facility] Comment on above: Performed By: #### C BC #### [facility] [address] [place] [address] Dr. Tasha Dodson PROF 14(COMP METB)on 01-04- 022 Albumin [Mass/Vol] 3.8 g/dL Normal 3.4-5.0 [facility] Comment on above: Performed By: #### T SH, BMP #### [facility] [address] [place] [address] Dr. Tasha Dodson Albumin/Globulin [Mass ratio] 0.9 {ratio} Normal [facility] Comment on above: Performed By: #### T SH, BMP #### [facility] [address] [place] [address] Dr. Tasha Dodson ALP [Catalytic activity/Vol] 60 U/L Normal 46-116 [facility] Comment on above: Performed By: #### T SH, BMP #### [facility] [address] [place] [address] Dr. Tasha Dodson ALT [Catalytic activity/Vol] 26 U/L Normal 14-59 [facility] Comment on above: Performed By: #### T SH, BMP #### [facility] [address] [address] [address] Tasha Dodson Anion gap [Moles/Vol] 8.4 mmol/L Normal [facility] Comment on above: Performed By: #### T SH, BMP #### [facility] [address] [address] [address] Tasha Dodson AST [Catalytic activity/Vol] 19 U/L Normal 15-37 [facility] Comment on above: Performed By: #### T SH, BMP #### [facility] [address] [place] [address] Dr. Tasha Dodson Bilirubin [Mass/Vol] 0.4 mg/dL Normal 0.2-1.0 [facility] Comment on above: Performed By: #### T SH, BMP #### [facility] [address] [place] [address] Dr. Tasha Dodson Calcium [Mass/Vol] 10.1 mg/dL Normal 8.5-10.1 [facility] Comment on above: Performed By: #### T SH, BMP #### [facility] [address] [place] [address] Dr. Tasha Dodson Chloride [Moles/Vol] 92 mmol/L Critically low 98-107 [facility] Comment on above: Performed By: #### T SH, BMP #### [facility] [address] [place] [address] Dr. Tasha Dodson CO2 [Moles/Vol] 33.8 mmol/L Critically high 21.0-32.0 [facility] Comment on above: Performed By: #### T SH, BMP #### [facility] [address] [place] [address] Dr. Tasha Dodson Creatinine [Mass/Vol] 0.67 mg/dL Normal 0.55-1.02 [facility] Comment on above: Performed By: #### T SH, BMP #### [facility] [address] [place] [address] Dr. Tasha Dodson EGFR-AF MOZAMBICAN >60 Normal >=60 [facility] Comment on above: Performed By: #### T SH, BMP #### [facility] [address] [address] [address] Tasha Dodson EGFR-NON AF MOZAMBICAN >60 Normal >=60 [facility] Comment on above: Performed By: #### T SH, BMP #### [facility] [address] [address] [address] Tasha Dodson Globulin (S) [Mass/Vol] 4.1 g/dL Normal [facility] Comment on above: Performed By: #### T SH, BMP #### [facility] [address] [place] [address] Dr. Tasha Dodson Glucose [Mass/Vol] 106 mg/dL Normal 74-106 [facility] Comment on above: Performed By: #### T SH, BMP #### [facility] [address] [place] [address] Dr. Tasha Dodson Potassium [Moles/Vol] 3.2 mmol/L Critically low 3.5-5.1 [facility] Comment on above: Performed By: #### T JESI, BMP #### [facility] [address] [place] [address] Dr. Tasha Dodson Protein [Mass/Vol] 7.9 g/dL Normal 6.4-8.2 [facility] Comment on above: Performed By: #### T JESI, BMP #### [facility] [address] [place] [address] Dr. Tasha Dodson Sodium [Moles/Vol] 131 mmol/L Critically low 136-145 [facility] Comment on above: Performed By: #### T SH, BMP #### [facility] [address] [place] [address] Dr. Tasha Dodson Urea nitrogen [Mass/Vol] 10.0 mg/dL Normal 7.0-18.0 [facility] Comment on above: Performed By: #### T SH, BMP #### [facility] [address] [place] [address] Dr. Tasha Dodson Urea nitrogen/Creatinine [Mass ratio] 14.9 mg/mg Normal [facility] Comment on above: Performed By: #### T JESI, BMP #### [facility] [address] [place] [address] Dr. Tasha Dodson CBC AUTO DIFFon 12-29-2021 BASO # 0.1 103/ul Normal 0.0-0.1 [facility] Comment on above: Performed By: #### C BC #### [facility] [address] [place] [address] Dr. Tasha Dodson Basophils/100 WBC (Bld) 0.5 % Normal 0.2-2.0 [facility] Comment on above: Performed By: #### C BC #### [facility] [address] [place] [address] Dr. Tasha Dodson EO # 0.1 103/ul Normal 0.0-0.7 [facility] Comment on above: Performed By: #### C BC #### [facility] [address] [place] [address] Dr. Tasha Dodson Eosinophils/100 WBC (Bld) 0.4 % Critically low 0.9-7.0 [facility] Comment on above: Performed By: #### C BC #### [facility] [address] [place] [address] Dr. Tasha Dodson Erythrocyte distribution width (RBC) [Ratio] 13.0 % Normal 11.0-15.0 [facility] Comment on above: Performed By: #### C BC #### [facility] [address] [place] [address] Dr. Tasha Dodsno Hematocrit (Bld) [Volume fraction] 34.0 % Critically low 36.0-48.0 [facility] Comment on above: Performed By: #### C BC #### [facility] [address] [place] [address] Dr. Tasha Dodson Hemoglobin (Bld) [Mass/Vol] 12.0 g/dL Normal 12.0-16.0 [facility] Comment on above: Performed By: #### C BC #### [facility] [address] [place] [address] Dr. Tasha Dodson IG # 0.06 10e3/ul Critically high 0.00-0.03 [facility] Comment on above: Performed By: #### C BC #### [facility] [address] [address] [address] Tasha Dodson IG % 0.4 % Normal 0.0-0.5 [facility] Comment on above: Performed By: #### C BC #### [facility] [address] [place] [address] Dr. Tasha Dodson LYMPH # 2.5 103/ul Normal 1.2-3.8 [facility] Comment on above: Performed By: #### C BC #### [facility] [address] [place] [address] Dr. Tasha Dodson Lymphocytes/100 WBC (Bld) 17.4 % Critically low 20.5-60.0 [facility] Comment on above: Performed By: #### C BC #### [facility] [address] [place] [address] Dr. Tasha Dodson MANUAL DIFF REQ NO Normal [facility] Comment on above: Performed By: #### C BC #### [facility] [address] [place] [address] Dr. Tasha Dodson MCH (RBC) [Entitic mass] 31.0 pg Normal 26.7-34.0 [facility] Comment on above: Performed By: #### C BC #### [facility] [address] [place] [address] Dr. Tasha Dodson MCHC (RBC) [Mass/Vol] 35.3 g/dL Critically high 29.9-35.2 [facility] Comment on above: Performed By: #### C BC #### [facility] [address] [place] [address] Dr. Tasha Dodson MCV (RBC) [Entitic vol] 87.9 fL Normal 81.0-99.0 [facility] Comment on above: Performed By: #### C BC #### [facility] [address] [place] [address] Dr. Tasha Dodson MONO # 1.0 103/ul Critically high 0.3-0.8 [facility] Comment on above: Performed By: #### C BC #### [facility] [address] [address] [address] Tasha Dodson Monocytes/100 WBC (Bld) 6.9 % Normal 1.7-12.0 [facility] Comment on above: Performed By: #### C BC #### [facility] [address] [address] [address] Tasha Dodson NEUT # 10.8 103/ul Critically high 1.4-6.5 [facility] Comment on above: Performed By: #### C BC #### [facility] [address] [address] [address] Tasha Dodson Neutrophils/100 WBC (Bld) 74.4 % Normal 43.0-75.0 [facility] Comment on above: Performed By: #### C BC #### [facility] [address] [place] [address] Dr. Tasha Dodson Platelet mean volume (Bld) [Entitic vol] 8.4 fL Critically low 9.5-13.5 [facility] Comment on above: Performed By: #### C BC #### [facility] [address] [place] [address] Dr. Tasha Dodson PLT 370 103/ul Normal 150-450 [facility] Comment on above: Performed By: #### C BC #### [facility] [address] [place] [address] Dr. Tasha Dodson RBC 3.87 106/ul Critically low 4.20-5.40 [facility] Comment on above: Performed By: #### C BC #### [facility] [address] [place] [address] Dr. Tasha Dodson WBC 14.5 103/ul Critically high 4.0-11.0 [facility] Comment on above: Performed By: #### C BC #### [facility] [address] [place] [address] Dr. Tasha Dodson PROF 14(COMP METB)on 022 Albumin [Mass/Vol] 2.8 g/dL Critically low 3.4-5.0 [facility] Comment on above: Performed By: #### T SH, BMP #### [facility] [address] [place] [address] Dr. Tasha Dodson Albumin/Globulin [Mass ratio] 0.9 {ratio} Normal [facility] Comment on above: Performed By: #### T SH, BMP #### [facility] [address] [place] [address] Dr. Tasha Dodson ALP [Catalytic activity/Vol] 51 U/L Normal 46-116 [facility] Comment on above: Performed By: #### T SH, BMP #### [facility] [address] [address] [address] Tasha Dodson ALT [Catalytic activity/Vol] 15 U/L Normal 14-59 [facility] Comment on above: Performed By: #### T SH, BMP #### [facility] [address] [place] [address] Dr. Tasha Dodson Anion gap [Moles/Vol] 9.7 mmol/L Normal [facility] Comment on above: Performed By: #### T SH, BMP #### [facility] [address] [place] [address] Dr. Tasha Dodson AST [Catalytic activity/Vol] 15 U/L Normal 15-37 [facility] Comment on above: Performed By: #### T SH, BMP #### [facility] [address] [place] [address] Dr. Tasha Dodson Bilirubin [Mass/Vol] 0.4 mg/dL Normal 0.2-1.0 [facility] Comment on above: Performed By: #### T SH, BMP #### [facility] [address] [place] [address] Dr. Tasha Dodson Calcium [Mass/Vol] 8.6 mg/dL Normal 8.5-10.1 [facility] Comment on above: Performed By: #### T SH, BMP #### [facility] [address] [place] [address] Dr. Tasha Dodson Chloride [Moles/Vol] 97 mmol/L Critically low 98-107 [facility] Comment on above: Performed By: #### T SH, BMP #### [facility] [address] [address] [address] Tasha Dodson CO2 [Moles/Vol] 25.8 mmol/L Normal 21.0-32.0 [facility] Comment on above: Performed By: #### T SH, BMP #### [facility] [address] [address] [address] Tasha Dodson Creatinine [Mass/Vol] 0.52 mg/dL Critically low 0.55-1.02 [facility] Comment on above: Performed By: #### T SH, BMP #### [facility] [address] [place] [address] Dr. Tasha Dodson EGFR-AF MOZAMBICAN >60 Normal >=60 [facility] Comment on above: Performed By: #### T SH, BMP #### [facility] [address] [place] [address] Dr. Tasha Dodson EGFR-NON AF MOZAMBICAN >60 Normal >=60 [facility] Comment on above: Performed By: #### T SH, BMP #### [facility] [address] [place] [address] Dr. Tasha Dodson Globulin (S) [Mass/Vol] 3.2 g/dL Normal [facility] Comment on above: Performed By: #### T SH, BMP #### [facility] [address] [place] [address] Dr. Tasha Dodson Glucose [Mass/Vol] 117 mg/dL Critically high 74-106 [facility] Comment on above: Performed By: #### T SH, BMP #### [facility] [address] [place] [address] Dr. Tasha Dodson Potassium [Moles/Vol] 3.5 mmol/L Normal 3.5-5.1 [facility] Comment on above: Performed By: #### T SH, BMP #### [facility] [address] [place] [address] Dr. Tasha Dodson Protein [Mass/Vol] 6.0 g/dL Critically low 6.4-8.2 [facility] Comment on above: Performed By: #### T SH, BMP #### [facility] [address] [place] [address] Dr. Tasha Dodson Sodium [Moles/Vol] 129 mmol/L Critically low 136-145 Th [facility] Comment on above: Performed By: #### T JESI, BMP #### [facility] [address] [place] [address] Dr. Tasha Dodson Urea nitrogen [Mass/Vol] 4.0 mg/dL Critically low 7.0-18.0 [facility] Comment on above: Performed By: #### T JESI, BMP #### [facility] [address] [place] [address] Dr. Tasha Dodson Urea nitrogen/Creatinine [Mass ratio] 7.7 mg/mg Normal [facility] Comment on above: Performed By: #### T JESI, BMP #### [facility] [address] [place] [address] Dr. Tasha Dodson CBC AUTO DIFFon 12-28-2021 BASO # 0.1 103/ul Normal 0.0-0.1 [facility] Comment on above: Performed By: #### C BC #### [facility] [address] [place] [address] Dr. Tasha Dodson Basophils/100 WBC (Bld) 0.4 % Normal 0.2-2.0 [facility] Comment on above: Performed By: #### C BC #### [facility] [address] [place] [address] Dr. Tasha Dodson EO # 0.1 103/ul Normal 0.0-0.7 [facility] Comment on above: Performed By: #### C BC #### [facility] [address] [place] [address] Dr. Tasha Dodson Eosinophils/100 WBC (Bld) 0.4 % Critically low 0.9-7.0 [facility] Comment on above: Performed By: #### C BC #### [facility] [address] [place] [address] Dr. Tasha Dodson Erythrocyte distribution width (RBC) [Ratio] 12.9 % Normal 11.0-15.0 [facility] Comment on above: Performed By: #### C BC #### [facility] [address] [place] [address] Dr. Tasha Dodson Hematocrit (Bld) [Volume fraction] 34.2 % Critically low 36.0-48.0 [facility] Comment on above: Performed By: #### C BC #### [facility] [address] [place] [address] Dr. Tasha Dodson Hemoglobin (Bld) [Mass/Vol] 12.4 g/dL Normal 12.0-16.0 [facility] Comment on above: Performed By: #### C BC #### [facility] [address] [place] [address] Dr. Tasha Dodson IG # 0.09 10e3/ul Critically high 0.00-0.03 [facility] Comment on above: Performed By: #### C BC #### [facility] [address] [place] [address] Dr. Tasha Dodson IG % 0.6 % Critically high 0.0-0.5 [facility] Comment on above: Performed By: #### C BC #### [facility] [address] [place] [address] Dr. Tasha Dodson LYMPH # 2.2 103/ul Normal 1.2-3.8 [facility] Comment on above: Performed By: #### C BC #### [facility] [address] [place] [address] Dr. Tasha Dodson Lymphocytes/100 WBC (Bld) 13.6 % Critically low 20.5-60.0 [facility] Comment on above: Performed By: #### C BC #### [facility] [address] [place] [address] Dr. Tasha Dodson MANUAL DIFF REQ NO Normal [facility] Comment on above: Performed By: #### C BC #### [facility] [address] [place] [address] Dr. Tasha Dodson MCH (RBC) [Entitic mass] 31.2 pg Normal 26.7-34.0 [facility] Comment on above: Performed By: #### C BC #### [facility] [address] [address] [address] Tasha Dodson MCHC (RBC) [Mass/Vol] 36.3 g/dL Critically high 29.9-35.2 [facility] Comment on above: Performed By: #### C BC #### [facility] [address] [address] [address] Tasha Dodson MCV (RBC) [Entitic vol] 85.9 fL Normal 81.0-99.0 [facility] Comment on above: Performed By: #### C BC #### [facility] [address] [address] [address] Tasha Dodson MONO # 1.3 103/ul Critically high 0.3-0.8 [facility] Comment on above: Performed By: #### C BC #### [facility] [address] [place] [address] Dr. Tasha Dodson Monocytes/100 WBC (Bld) 7.8 % Normal 1.7-12.0 [facility] Comment on above: Performed By: #### C BC #### [facility] [address] [address] [address] Tasha Dodson NEUT # 12.4 103/ul Critically high 1.4-6.5 [facility] Comment on above: Performed By: #### C BC #### [facility] [address] [place] [address] Dr. Tasha Dodson Neutrophils/100 WBC (Bld) 77.2 % Critically high 43.0-75.0 [facility] Comment on above: Performed By: #### C BC #### [facility] [address] [address] [address] Tasha Dodson Platelet mean volume (Bld) [Entitic vol] 8.6 fL Critically low 9.5-13.5 [facility] Comment on above: Performed By: #### C BC #### [facility] [address] [place] [address] Dr. Tasha Dodson PLT 385 103/ul Normal 150-450 [facility] Comment on above: Performed By: #### C BC #### [facility] [address] [address] [address] Tasha Dodson RBC 3.98 106/ul Critically low 4.20-5.40 [facility] Comment on above: Performed By: #### C BC #### [facility] [address] [address] [address] Tasha Dodson WBC 16.1 103/ul Critically high 4.0-11.0 [facility] Comment on above: Performed By: #### C BC #### [facility] [address] [place] [address] Dr. Tasha Dodson PROF 14(COMP METB)on 022 Albumin [Mass/Vol] 3.2 g/dL Critically low 3.4-5.0 [facility] Comment on above: Performed By: #### T SH, BMP #### [facility] [address] [place] [address] Dr. Tasha Dodson Albumin/Globulin [Mass ratio] 1.0 {ratio} Normal [facility] Comment on above: Performed By: #### T SH, BMP #### [facility] [address] [place] [address] Dr. Tasha Dodson ALP [Catalytic activity/Vol] 51 U/L Normal 46-116 [facility] Comment on above: Performed By: #### T SH, BMP #### [facility] [address] [place] [address] Dr. Tasha Dodson ALT [Catalytic activity/Vol] 17 U/L Normal 14-59 [facility] Comment on above: Performed By: #### T SH, BMP #### [facility] [address] [place] [address] Dr. Tasha Dodson Anion gap [Moles/Vol] 10.5 mmol/L Normal [facility] Comment on above: Performed By: #### T SH, BMP #### [facility] [address] [place] [address] Dr. Tasha Dodson AST [Catalytic activity/Vol] 18 U/L Normal 15-37 [facility] Comment on above: Performed By: #### T SH, BMP #### [facility] [address] [address] [address] Tasha Dodson Bilirubin [Mass/Vol] 0.4 mg/dL Normal 0.2-1.0 [facility] Comment on above: Performed By: #### T SH, BMP #### [facility] [address] [place] [address] Dr. Tasha Dodson Calcium [Mass/Vol] 8.3 mg/dL Critically low 8.5-10.1 Th [facility] Comment on above: Performed By: #### T SH, BMP #### [facility] [address] [place] [address] Dr. Tasha Dodson Chloride [Moles/Vol] 96 mmol/L Critically low 98-107 [facility] Comment on above: Performed By: #### T SH, BMP #### [facility] [address] [place] [address] Dr. Tasha Dodson CO2 [Moles/Vol] 24.5 mmol/L Normal 21.0-32.0 [facility] Comment on above: Performed By: #### T SH, BMP #### [facility] [address] [place] [address] Dr. Tasha Dodson Creatinine [Mass/Vol] 0.54 mg/dL Critically low 0.55-1.02 [facility] Comment on above: Performed By: #### T SH, BMP #### [facility] [address] [place] [address] Dr. Tasha Dodson EGFR-AF MOZAMBICAN >60 Normal >=60 [facility] Comment on above: Performed By: #### T SH, BMP #### [facility] [address] [place] [address] Dr. Tasha Dodson EGFR-NON AF MOZAMBICAN >60 Normal >=60 [facility] Comment on above: Performed By: #### T SH, BMP #### [facility] [address] [place] [address] Dr. Tasha Dodson Globulin (S) [Mass/Vol] 3.1 g/dL Normal [facility] Comment on above: Performed By: #### T SH, BMP #### [facility] [address] [place] [address] Dr. Tasha Dodson Glucose [Mass/Vol] 123 mg/dL Critically high 74-106 [facility] Comment on above: Performed By: #### T , BMP #### [facility] [address] [place] [address] Dr. Tasha Dodson Potassium [Moles/Vol] 3.0 mmol/L Critically low 3.5-5.1 [facility] Comment on above: Performed By: #### T , BMP #### [facility] [address] [place] [address] Dr. Tasha Dodson Protein [Mass/Vol] 6.3 g/dL Critically low 6.4-8.2 [facility] Comment on above: Performed By: #### T , BMP #### [facility] [address] [place] [address] Dr. Tasha Dodson Sodium [Moles/Vol] 128 mmol/L Critically low 136-145 Th [facility] Comment on above: Performed By: #### T , BMP #### [facility] [address] [place] [address] Dr. Tasha Dodson Urea nitrogen [Mass/Vol] 5.0 mg/dL Critically low 7.0-18.0 [facility] Comment on above: Performed By: #### T , BMP #### [facility] [address] [place] [address] Dr. Tasha Dodson Urea nitrogen/Creatinine [Mass ratio] 9.3 mg/mg Normal [facility] Comment on above: Performed By: #### T , BMP #### [facility] [address] [place] [address] Dr. Tasha Dodson SODIUM RANDOM URINEon 2021 Sodium (U) [Moles/Vol] 135 mmol/L Critically high 30-90 [facility] Comment on above: Performed By: #### C BC #### [facility] [address] [place] [address] Dr. Tasha Dodson CBC AUTO DIFFon 12-27-2021 BASO # 0.0 103/ul Normal 0.0-0.1 [facility] Comment on above: Performed By: #### C BC #### [facility] [address] [place] [address] Dr. Tasha Dodson Basophils/100 WBC (Bld) 0.2 % Normal 0.2-2.0 [facility] Comment on above: Performed By: #### C BC #### [facility] [address] [place] [address] Dr. Tasha Dodson EO # 0.3 103/ul Normal 0.0-0.7 [facility] Comment on above: Performed By: #### C BC #### [facility] [address] [place] [address] Dr. Tasha Dodson Eosinophils/100 WBC (Bld) 2.3 % Normal 0.9-7.0 [facility] Comment on above: Performed By: #### C BC #### [facility] [address] [place] [address] Dr. Tasha Dodson Erythrocyte distribution width (RBC) [Ratio] 12.4 % Normal 11.0-15.0 [facility] Comment on above: Performed By: #### C BC #### [facility] [address] [place] [address] Dr. Tasha Dodson Hematocrit (Bld) [Volume fraction] 35.4 % Critically low 36.0-48.0 [facility] Comment on above: Performed By: #### C BC #### [facility] [address] [place] [address] Dr. Tasha Dodson Hemoglobin (Bld) [Mass/Vol] 12.9 g/dL Normal 12.0-16.0 [facility] Comment on above: Performed By: #### C BC #### [facility] [address] [place] [address] Dr. Tasha Dodson IG # 0.06 10e3/ul Critically high 0.00-0.03 [facility] Comment on above: Performed By: #### C BC #### [facility] [address] [place] [address] Dr. Tasha Dodson IG % 0.5 % Normal 0.0-0.5 [facility] Comment on above: Performed By: #### C BC #### [facility] [address] [address] [address] Tasha Dodson LYMPH # 2.0 103/ul Normal 1.2-3.8 [facility] Comment on above: Performed By: #### C BC #### [facility] [address] [address] [address] Tasha Dodson Lymphocytes/100 WBC (Bld) 15.7 % Critically low 20.5-60.0 [facility] Comment on above: Performed By: #### C BC #### [facility] [address] [place] [address] Dr. Tasha Dodson MANUAL DIFF REQ NO Normal [facility] Comment on above: Performed By: #### C BC #### [facility] [address] [place] [address] Dr. Tasha Dodson MCH (RBC) [Entitic mass] 31.0 pg Normal 26.7-34.0 [facility] Comment on above: Performed By: #### C BC #### [facility] [address] [place] [address] Dr. Tasha Dodson MCHC (RBC) [Mass/Vol] 36.4 g/dL Critically high 29.9-35.2 [facility] Comment on above: Performed By: #### C BC #### [facility] [address] [place] [address] Dr. Tasha Dodson MCV (RBC) [Entitic vol] 85.1 fL Normal 81.0-99.0 [facility] Comment on above: Performed By: #### C BC #### [facility] [address] [place] [address] Dr. Tasha Dodson MONO # 1.1 103/ul Critically high 0.3-0.8 [facility] Comment on above: Performed By: #### C BC #### [facility] [address] [place] [address] Dr. Tasha Dodson Monocytes/100 WBC (Bld) 8.3 % Normal 1.7-12.0 [facility] Comment on above: Performed By: #### C BC #### [facility] [address] [address] [address] Tasha Dodson NEUT # 9.5 103/ul Critically high 1.4-6.5 [facility] Comment on above: Performed By: #### C BC #### [facility] [address] [id number] Tasha Dodson Neutrophils/100 WBC (Bld) 73.0 % Normal 43.0-75.0 [facility] Comment on above: Performed By: #### C BC #### [facility] [address] [address] [address] Tasha Dodson Platelet mean volume (Bld) [Entitic vol] 8.3 fL Critically low 9.5-13.5 [facility] Comment on above: Performed By: #### C BC #### [facility] [address] [address] [address] Tasha Dodson PLT 408 103/ul Normal 150-450 [facility] Comment on above: Performed By: #### C BC #### [facility] [address] [address] [address] Tasha Dodson RBC 4.16 106/ul Critically low 4.20-5.40 [facility] Comment on above: Performed By: #### C BC #### [facility] [address] [id number] Tasha Dodson WBC 13.0 103/ul Critically high 4.0-11.0 [facility] Comment on above: Performed By: #### C BC #### [facility] [address] [id number] Tasha Dodson CULTURE SPUTUMon 12-27-2021 CULTURE SPUTUM Culture Observations : NORMAL RESPIRATORY AMADOU. Normal [facility] Comment on above: Performed By: #### C BC #### [facility] [address] [address] [address] Tasha Dodson PROF 14(COMP METB)on 022 Albumin [Mass/Vol] 3.4 g/dL Normal 3.4-5.0 [facility] Comment on above: Performed By: #### C MADM, LIPA, BNP, CMP #### [facility] [address] [place] [address] Dr. Tasha Dodson Albumin/Globulin [Mass ratio] 1.0 {ratio} Normal [facility] Comment on above: Performed By: #### C MADM, LIPA, BNP, CMP #### [facility] [address] [place] [address] Dr. Tasha Dodson ALP [Catalytic activity/Vol] 54 U/L Normal 46-116 [facility] Comment on above: Performed By: #### C MADM, LIPA, BNP, CMP #### [facility] [address] [place] [address] Dr. Tasha Dodson ALT [Catalytic activity/Vol] 20 U/L Normal 14-59 [facility] Comment on above: Performed By: #### C MADM, LIPA, BNP, CMP #### [facility] [address] [place] [address] Dr. Tasha Dodson Anion gap [Moles/Vol] 10.8 mmol/L Normal [facility] Comment on above: Performed By: #### C MADM, LIPA, BNP, CMP #### [facility] [address] [place] [address] Dr. Tasha Dodson AST [Catalytic activity/Vol] 19 U/L Normal 15-37 [facility] Comment on above: Performed By: #### C MADM, LIPA, BNP, CMP #### [facility] [address] [place] [address] Dr. Tasha Dodson Bilirubin [Mass/Vol] 0.5 mg/dL Normal 0.2-1.0 [facility] Comment on above: Performed By: #### C MADM, LIPA, BNP, CMP #### [facility] [address] [place] [address] Dr. Tasha Dodson Calcium [Mass/Vol] 8.3 mg/dL Critically low 8.5-10.1 [facility] Comment on above: Performed By: #### C MADM, LIPA, BNP, CMP #### [facility] [address] [address] [address] Tasha Dodson Chloride [Moles/Vol] 89 mmol/L Critically low 98-107 [facility] Comment on above: Performed By: #### C MADM, LIPA, BNP, CMP #### [facility] [address] [place] [address] Dr. Tasha Dodson CO2 [Moles/Vol] 27.0 mmol/L Normal 21.0-32.0 [facility] Comment on above: Performed By: #### C MADM, LIPA, BNP, CMP #### [facility] [address] [address] [address] Tasha Dodson Creatinine [Mass/Vol] 0.69 mg/dL Normal 0.55-1.02 [facility] Comment on above: Performed By: #### C MADM, LIPA, BNP, CMP #### [facility] [address] [place] [address] Dr. Tasha Dodson EGFR-AF MOZAMBICAN >60 Normal >=60 [facility] Comment on above: Performed By: #### C MADM, LIPA, BNP, CMP #### [facility] [address] [place] [address] Dr. Tasha Dodson EGFR-NON AF MOZAMBICAN >60 Normal >=60 [facility] Comment on above: Performed By: #### C MADM, LIPA, BNP, CMP #### [facility] [address] [address] [address] Tasha Dodson Globulin (S) [Mass/Vol] 3.3 g/dL Normal [facility] Comment on above: Performed By: #### C MADM, LIPA, BNP, CMP #### [facility] [address] [place] [address] Dr. Tasha Dodson Glucose [Mass/Vol] 115 mg/dL Critically high 74-106 [facility] Comment on above: Performed By: #### C MADM, LIPA, BNP, CMP #### [facility] [address] [place] [address] Dr. Tasha Dodson Potassium [Moles/Vol] 2.7 mmol/L Critically low 3.5-5.1 [facility] Comment on above: Result Comment: Test Repeated. Critical Value Verified Performed By: #### C MADM, LIPA, BNP, CMP #### [facility] [address] [address] [address] Tasha Dodson Protein [Mass/Vol] 6.7 g/dL Normal 6.4-8.2 [facility] Comment on above: Performed By: #### C MADM, LIPA, BNP, CMP #### [facility] [address] [address] [address] Tasha Dodson Sodium [Moles/Vol] 123 mmol/L Critically low 136-145 Th [facility] Comment on above: Result Comment: Test Repeated. Critical Value Verified Performed By: #### C MADM, LIPA, BNP, CMP #### [facility] [address] [address] [address] Tasha Dodson Urea nitrogen [Mass/Vol] 6.0 mg/dL Critically low 7.0-18.0 [facility] Comment on above: Performed By: #### C MADM, LIPA, BNP, CMP #### [facility] [address] [place] [address] Dr. Tasha Dodson Urea nitrogen/Creatinine [Mass ratio] 8.7 mg/mg Normal [facility] Comment on above: Performed By: #### C MADM, LIPA, BNP, CMP #### [facility] [address] [address] [address] Tasha Dodson SPUTUM GRAM STAINon 12-28-19 COMMENTS Normal [facility] Comment on above: Performed By: #### T SH, BMP #### [facility] [address] [address] [address] Tasha Dodson DIPHTHEROIDS Normal [facility] Comment on above: Performed By: #### T SH, BMP #### [facility] [address] [place] [address] Dr. Tasha Dodson EPITHELIALS <25 Normal [facility] Comment on above: Performed By: #### T SH, BMP #### [facility] [address] [address] [address] Tasha Dodson FUNGAL ELEMENTS Normal [facility] Comment on above: Performed By: #### T SH, BMP #### [facility] [address] [address] [address] Tasha Dodson GRAM NEG BACILLI Normal [facility] Comment on above: Performed By: #### T SH, BMP #### [facility] [address] [address] [address] Tasha Dodson GRAM NEG DIPPLOCOCCI Normal [facility] Comment on above: Performed By: #### T SH, BMP #### [facility] [address] [address] [address] Tasha Dodson GRAM POS BACILLI Normal [facility] Comment on above: Performed By: #### T SH, BMP #### [facility] [address] [place] [address] Dr. Tasha Dodson GRAM POSITIVE COCCI MODERATE Normal [facility] Comment on above: Performed By: #### T SH, BMP #### [facility] [address] [place] [address] Dr. Tasha Dodson WBC (Bld) [#/Vol] 10*3/uL Normal [facility] Comment on above: Performed By: #### T SH, BMP #### [facility] [address] [place] [address] Dr. Tasha Dodson BNPon 12-26-2021 Natriuretic peptide B (Bld) [Mass/Vol] 148.0 pg/mL Normal <=1,800.0 [facility] Comment on above: Performed By: #### C MADM, LIPA, BNP, CMP #### [facility] [address] [place] [address] Dr. Tasha Dodson CARDIAC ANGELO ADMITon 022 CK [Catalytic activity/Vol] 139 U/L Normal 26-192 [facility] Comment on above: Performed By: #### C MADM, LIPA, BNP, CMP #### [facility] [address] [place] [address] Dr. Tasha Dodson CK.MB [Mass/Vol] 2.43 ng/mL Normal <=3.60 [facility] Comment on above: Performed By: #### C MADM, LIPA, BNP, CMP #### [facility] [address] [address] [address] Tasha Dodson HSTROP 12.2 pg/mL Normal 4.0-51.3 [facility] Comment on above: Result Comment: CUT- OFF POINTS HAVE BEEN ESTABLISHED BASED ON THE FOURTH UNIVERSAL DEFINITIONS OF MYOCARDIAL INFARCTION. THE UPPER REFERENCE LIMIT (URL) OF TROPONIN, DEFINED THE 99TH PERCENTILE OF cTnI DISTRIBUTION IN A REFERENCE POPULATION, HAS BEEN CONFIRMED THE DECISION THRESHOLD FOR IA DIAGNOSIS. Performed By: #### C MADM, LIPA, BNP, CMP #### [facility] [address] [place] [address] Dr. Tasha Dodson ELIZABETH 110 ng/mL Critically high 9-82 [facility] Comment on above: Performed By: #### C MADM, LIPA, BNP, CMP #### [facility] [address] [place] [address] Dr. Tasha Dodson CBC AUTO DIFFon 12-26-2021 BASO # 0.0 103/ul Normal 0.0-0.1 [facility] Comment on above: Performed By: #### C MADM, LIPA, BNP, CMP #### [facility] [address] [place] [address] Dr. Tasha Dodson Basophils/100 WBC (Bld) 0.3 % Normal 0.2-2.0 [facility] Comment on above: Performed By: #### C MADM, LIPA, BNP, CMP #### [facility] [address] [place] [address] Dr. Tasha Dodson EO # 0.1 103/ul Normal 0.0-0.7 [facility] Comment on above: Performed By: #### C MADM, LIPA, BNP, CMP #### [facility] [address] [place] [address] Dr. Tasha Dodson Eosinophils/100 WBC (Bld) 0.7 % Critically low 0.9-7.0 [facility] Comment on above: Performed By: #### C MADM, LIPA, BNP, CMP #### [facility] [address] [place] [address] Dr. Tasha Dodson Erythrocyte distribution width (RBC) [Ratio] 12.4 % Normal 11.0-15.0 [facility] Comment on above: Performed By: #### C MADM, LIPA, BNP, CMP #### [facility] [address] [place] [address] Dr. Tasha Dodson Hematocrit (Bld) [Volume fraction] 38.9 % Normal 36.0-48.0 [facility] Comment on above: Performed By: #### C MADM, LIPA, BNP, CMP #### [facility] [address] [place] [address] Dr. Tasha Dodson Hemoglobin (Bld) [Mass/Vol] 14.4 g/dL Normal 12.0-16.0 [facility] Comment on above: Performed By: #### C MADM, LIPA, BNP, CMP #### [facility] [address] [place] [address] Dr. Tasha Dodson IG # 0.08 10e3/ul Critically high 0.00-0.03 [facility] Comment on above: Performed By: #### C MADM, LIPA, BNP, CMP #### [facility] [address] [place] [address] Dr. Tasha Dodson IG % 0.5 % Normal 0.0-0.5 [facility] Comment on above: Performed By: #### C MADM, LIPA, BNP, CMP #### [facility] [address] [place] [address] Dr. Tasha Dodson LYMPH # 2.2 103/ul Normal 1.2-3.8 [facility] Comment on above: Performed By: #### C MADM, LIPA, BNP, CMP #### [facility] [address] [place] [address] Dr. Tasha Dodson Lymphocytes/100 WBC (Bld) 15.0 % Critically low 20.5-60.0 [facility] Comment on above: Performed By: #### C MADM, LIPA, BNP, CMP #### [facility] [address] [place] [address] Dr. Tasha Dodson MANUAL DIFF REQ NO Normal [facility] Comment on above: Performed By: #### C MADM, LIPA, BNP, CMP #### [facility] [address] [place] [address] Dr. Tasha Dodson MCH (RBC) [Entitic mass] 31.6 pg Normal 26.7-34.0 [facility] Comment on above: Performed By: #### C MADM, LIPA, BNP, CMP #### [facility] [address] [place] [address] Dr. Tasha Dodson MCHC (RBC) [Mass/Vol] 37.0 g/dL Critically high 29.9-35.2 [facility] Comment on above: Performed By: #### C MADM, LIPA, BNP, CMP #### [facility] [address] [place] [address] Dr. Tasha Dodson MCV (RBC) [Entitic vol] 85.3 fL Normal 81.0-99.0 [facility] Comment on above: Performed By: #### C MADM, LIPA, BNP, CMP #### [facility] [address] [place] [address] Dr. Tasha Dodson MONO # 1.0 103/ul Critically high 0.3-0.8 [facility] Comment on above: Performed By: #### C MADM, LIPA, BNP, CMP #### [facility] [address] [place] [address] Dr. Tasha Dodson Monocytes/100 WBC (Bld) 6.8 % Normal 1.7-12.0 [facility] Comment on above: Performed By: #### C MADM, LIPA, BNP, CMP #### [facility] [address] [place] [address] Dr. Tasha Dodson NEUT # 11.5 103/ul Critically high 1.4-6.5 [facility] Comment on above: Performed By: #### C MADM, LIPA, BNP, CMP #### [facility] [address] [place] [address] Dr. Tasha Dodson Neutrophils/100 WBC (Bld) 76.7 % Critically high 43.0-75.0 [facility] Comment on above: Performed By: #### C MADM, LIPA, BNP, CMP #### [facility] [address] [place] [address] Dr. Tasha Dodson Platelet mean volume (Bld) [Entitic vol] 8.6 fL Critically low 9.5-13.5 [facility] Comment on above: Performed By: #### C MADM, LIPA, BNP, CMP #### [facility] [address] [place] [address] Dr. Tasha Dodson PLT 491 103/ul Critically high 150-450 [facility] Comment on above: Performed By: #### C MADM, LIPA, BNP, CMP #### [facility] [address] [place] [address] Dr. Tasha Dodson RBC 4.56 106/ul Normal 4.20-5.40 [facility] Comment on above: Performed By: #### C MADM, LIPA, BNP, CMP #### [facility] [address] [place] [address] Dr. Tasha Dodson WBC 15.0 103/ul Critically high 4.0-11.0 [facility] Comment on above: Performed By: #### C MADM, LIPA, BNP, CMP #### [facility] [address] [place] [address] Dr. Tasha Dodson CULTURE URINEon 12-26-2021 CULTURE URINE Culture Observations : LIGHT GROWTH OF MIXED GENITAL AMADOU. NO POTENTIAL PATHOGENS SEEN. Normal [facility] Comment on above: Performed By: #### C BC #### [facility] [address] [place] [address] Dr. Tasha Dodson [facility]on SARS-CoV-2 (COVID-19) RNA CARITO+probe Ql (Unsp spec) Not detected Normal NOT DETECTED [facility] Comment on above: Result Comment: When [...] for this test is supported by the [place] of Health and Human Service's declaration that [...] #### C MADM, LIPA, BNP, CMP #### [facility] [address] [place] [address] Dr. Tasha Dodson ER URINE PROFILEon 2 Bilirubin Ql (U) Negative Normal NEGATIVE [facility] Comment on above: Performed By: #### T SH, BMP #### [facility] [address] [place] [address] Dr. Tasha Dodson Clarity (U) CLEAR Normal CLEAR [facility] Comment on above: Performed By: #### T SH, BMP #### [facility] [address] [place] [address] Dr. Tasha Dodson Color (U) LT. YELLOW Normal YELLOW [facility] Comment on above: Performed By: #### T SH, BMP #### [facility] [address] [place] [address] Dr. Tasha Dodson ERUAHD A micrscopic examination will be performed if indicated. Normal [facility] Comment on above: Performed By: #### T SH, BMP #### [facility] [address] [place] [address] Dr. Tasha Dodson Glucose Ql (U) Negative Normal NEGATIVE [facility] Comment on above: Performed By: #### T SH, BMP #### [facility] [address] [place] [address] Dr. Tasha Dodson Hemoglobin Ql (U) TRACE-INTACT Abnormal NEGATIVE [facility] Comment on above: Performed By: #### T SH, BMP #### [facility] [address] [place] [address] Dr. Tasha Dodson Ketones Ql (U) TRACE Abnormal NEGATIVE [facility] Comment on above: Performed By: #### T SH, BMP #### [facility] [address] [place] [address] Dr. Tasha Dodson LEUKOCYTES Negative Normal NEGATIVE [facility] Comment on above: Performed By: #### T SH, BMP #### [facility] [address] [place] [address] Dr. Tasha Dodson Nitrite Ql (U) Negative Normal NEGATIVE [facility] Comment on above: Performed By: #### T SH, BMP #### [facility] [address] [place] [address] Dr. Tasha Dodson pH (U) 7.0 [pH] Normal 5-9 [facility] Comment on above: Performed By: #### T SH, BMP #### [facility] [address] [place] [address] Dr. Tasha Dodson SPEC GRAVITY 1.010 Normal 1.005-<=1.0 25 [facility] Comment on above: Performed By: #### T SH, BMP #### [facility] [address] [place] [address] Dr. Tasha Dodson UA PROTEIN Negative Normal NEGATIVE/ TRACE [facility] Comment on above: Performed By: #### T SH, BMP #### [facility] [address] [place] [address] Dr. Tasha Dodson UR MICRO IND INDICATED Normal [facility] Comment on above: Performed By: #### T SH, BMP #### [facility] [address] [place] [address] Dr. Tasha Dodson Urobilinogen Qn (U) 0.2 {Juan'U}/dL Normal 0.2 - 1. 0 [facility] Comment on above: Performed By: #### T SH, BMP #### [facility] [address] [place] [address] Dr. Tasha Dodson INFLUENZA A AND B AGon 12-26 INFLUANEGH SEE BELOW Normal [facility] Comment on above: Result Comment: Nega tive for Flu A protein angiten. Infection due to Flu A cannot be ruled out. Flu A angiten in the sample may be below the detection limit of the test. Performed By: #### C BC #### [facility] [address] [place] [address] Dr. Tasha Dodson INFLUBNEGH SEE BELOW Normal [facility] Comment on above: Result Comment: Nega tive for Flu B protein antigen. Infection due to Flu B cannot be ruled out. Flu B antigen in the sample may be below the detection limit of the test. Performed By: #### C BC #### [facility] [address] [place] [address] Dr. Tasha Dodson INFLUENZA A AG Negative Normal NEGATIVE SEE COMMENT [facility] Comment on above: Performed By: #### C BC #### [facility] [address] [place] [address] Dr. Tasha Dodson INFLUENZA B AG Negative Normal NEGATIVE SEE COMMENT [facility] Comment on above: Performed By: #### C BC #### [facility] [address] [place] [address] Dr. Tasha Dodson INTERNAL CONTROLS Within Normal Limits Normal Wi thin Normal Limits [facility] Comment on above: Performed By: #### C BC #### [facility] [address] [place] [address] Dr. Tasha Dodson LACTATE/LACTIC ACIDon 2021 Lactate [Moles/Vol] 1.5 mmol/L Normal 0.4-1.9 [facility] Comment on above: Performed By: #### T SH, BMP #### [facility] [address] [place] [address] Dr. Tasha Dodson LIPASEon 12-26-2021 Lipase [Catalytic activity/Vol] 96.0 U/L Normal 73.0-393.0 [facility] Comment on above: Performed By: #### C MADM, LIPA, BNP, CMP #### [facility] [address] [place] [address] Dr. Tasha Dodson PROF 14(COMP METB)on 022 Albumin [Mass/Vol] 4.2 g/dL Normal 3.4-5.0 [facility] Comment on above: Performed By: #### C MADM, LIPA, BNP, CMP #### [facility] [address] [place] [address] Dr. Tasha Dodson Albumin/Globulin [Mass ratio] 1.1 {ratio} Normal [facility] Comment on above: Performed By: #### C MADM, LIPA, BNP, CMP #### [facility] [address] [place] [address] Dr. Tasha Dodson ALP [Catalytic activity/Vol] 68 U/L Normal 46-116 [facility] Comment on above: Performed By: #### C MADM, LIPA, BNP, CMP #### [facility] [address] [place] [address] Dr. Tasha Dodson ALT [Catalytic activity/Vol] 23 U/L Normal 14-59 [facility] Comment on above: Performed By: #### C MADM, LIPA, BNP, CMP #### [facility] [address] [place] [address] Dr. Tasha Dodson Anion gap [Moles/Vol] 12.3 mmol/L Normal [facility] Comment on above: Performed By: #### C MADM, LIPA, BNP, CMP #### [facility] [address] [place] [address] Dr. Tasha Dodson AST [Catalytic activity/Vol] 25 U/L Normal 15-37 [facility] Comment on above: Performed By: #### C MADM, LIPA, BNP, CMP #### [facility] [address] [place] [address] Dr. Tasha Dodson Bilirubin [Mass/Vol] 0.7 mg/dL Normal 0.2-1.0 [facility] Comment on above: Performed By: #### C MADM, LIPA, BNP, CMP #### [facility] [address] [place] [address] Dr. Tasha Dodson Calcium [Mass/Vol] 9.5 mg/dL Normal 8.5-10.1 [facility] Comment on above: Performed By: #### C MADM, LIPA, BNP, CMP #### [facility] [address] [address] [address] Tasha Dodson Chloride [Moles/Vol] 80 mmol/L Critically low 98-107 [facility] Comment on above: Performed By: #### C MADM, LIPA, BNP, CMP #### [facility] [address] [address] [address] Tasha Dodson CO2 [Moles/Vol] 27.1 mmol/L Normal 21.0-32.0 [facility] Comment on above: Performed By: #### C MADM, LIPA, BNP, CMP #### [facility] [address] [place] [address] Dr. Tasha Dodson Creatinine [Mass/Vol] 0.85 mg/dL Normal 0.55-1.02 [facility] Comment on above: Performed By: #### C MADM, LIPA, BNP, CMP #### [facility] [address] [place] [address] Dr. Tasha Dodson EGFR-AF MOZAMBICAN >60 Normal >=60 [facility] Comment on above: Performed By: #### C MADM, LIPA, BNP, CMP #### [facility] [address] [place] [address] Dr. Tasha Dodson EGFR-NON AF MOZAMBICAN >60 Normal >=60 [facility] Comment on above: Performed By: #### C MADM, LIPA, BNP, CMP #### [facility] [address] [place] [address] Dr. Tasha Dodson Globulin (S) [Mass/Vol] 3.9 g/dL Normal [facility] Comment on above: Performed By: #### C MADM, LIPA, BNP, CMP #### [facility] [address] [place] [address] Dr. Tasha Dodson Glucose [Mass/Vol] 132 mg/dL Critically high 74-106 [facility] Comment on above: Performed By: #### C MADM, LIPA, BNP, CMP #### [facility] [address] [address] [address] Tasha Dodson Potassium [Moles/Vol] 2.4 mmol/L Critically low 3.5-5.1 [facility] Comment on above: Performed By: #### C MADM, LIPA, BNP, CMP #### [facility] [address] [place] [address] Dr. Tasha Dodson Protein [Mass/Vol] 8.1 g/dL Normal 6.4-8.2 [facility] Comment on above: Performed By: #### C MADM, LIPA, BNP, CMP #### [facility] [address] [place] [address] Dr. Tasha Dodson Sodium [Moles/Vol] 116 mmol/L Critically low 136-145 [facility] Comment on above: Performed By: #### C MADM, LIPA, BNP, CMP #### [facility] [address] [place] [address] Dr. Tasha Dodson Urea nitrogen [Mass/Vol] 12.0 mg/dL Normal 7.0-18.0 [facility] Comment on above: Performed By: #### C MADM, LIPA, BNP, CMP #### [facility] [address] [place] [address] Dr. Tasha Dodson Urea nitrogen/Creatinine [Mass ratio] 14.1 mg/mg Normal [facility] Comment on above: Performed By: #### C MADM, LIPA, BNP, CMP #### [facility] [address] [place] [address] Dr. Tasha Dodson PROF CHEM 8 (BAS METB)on Anion gap [Moles/Vol] 11.4 mmol/L Normal [facility] Comment on above: Performed By: #### T SH, BMP #### [facility] [address] [place] [address] Dr. Tasha Dodson Calcium [Mass/Vol] 8.4 mg/dL Critically low 8.5-10.1 [facility] Comment on above: Performed By: #### T SH, BMP #### [facility] [address] [address] [address] Tasha Dodson Chloride [Moles/Vol] 89 mmol/L Critically low 98-107 [facility] Comment on above: Performed By: #### T SH, BMP #### [facility] [address] [address] [address] Tasha Dodson CO2 [Moles/Vol] 25.5 mmol/L Normal 21.0-32.0 [facility] Comment on above: Performed By: #### T SH, BMP #### [facility] [address] [address] [address] Tasha Dodson Creatinine [Mass/Vol] 0.89 mg/dL Normal 0.55-1.02 [facility] Comment on above: Performed By: #### T SH, BMP #### [facility] [address] [address] [address] Tasha Dodson EGFR-AF MOZAMBICAN >60 Normal >=60 [facility] Comment on above: Performed By: #### T SH, BMP #### [facility] [address] [address] [address] Tasha Dodson EGFR-NON AF MOZAMBICAN 60 mL/min/1.73m2 Normal >=60 [facility] Comment on above: Performed By: #### T SH, BMP #### [facility] [address] [address] [address] Tasha Dodson Glucose [Mass/Vol] 166 mg/dL Critically high 74-106 [facility] Comment on above: Performed By: #### T SH, BMP #### [facility] [address] [address] [address] Tasha Dodson Potassium [Moles/Vol] 3.0 mmol/L Critically low 3.5-5.1 [facility] Comment on above: Performed By: #### T SH, BMP #### [facility] [address] [address] [address] Tasha Dodson Sodium [Moles/Vol] 123 mmol/L Critically low 136-145 [facility] Comment on above: Performed By: #### T JESI, BMP #### [facility] [address] [place] [address] Dr. Tasha Dodson Urea nitrogen [Mass/Vol] 9.0 mg/dL Normal 7.0-18.0 [facility] Comment on above: Performed By: #### T JESI, BMP #### [facility] [address] [place] [address] Dr. Tasha Dodson Urea nitrogen/Creatinine [Mass ratio] 10.1 mg/mg Normal [facility] Comment on above: Performed By: #### T JESI, BMP #### [facility] [address] [place] [address] Dr. Tasha Dodson PROTIMEon 12-26-2021 INR Coag (PPP) [Relative time] 0.96 {INR} Normal [facility] Comment on above: Performed By: #### T JESI, BMP #### [facility] [address] [place] [address] Dr. Tasha Dodson INR GUIDELINES SEE BELOW Normal [facility] Comment on above: Result Comment: JO RED INR: 2.0 - 3.0 CONDITIONS NOT LISTED BELOW 2.5 - 3.5 FOR PROSTHETIC HEART VALVE REPLACEMENT 2.5 - 3.5 RECURRENT THROMBOSIS Performed By: #### T JESI, BMP #### [facility] [address] [place] [address] Dr. Tasha Dodson PT Coag (PPP) [Time] 10.4 s Normal 9.0-11.6 [facility] Comment on above: Performed By: #### T JESI, BMP #### [facility] [address] [place] [address] Dr. Tasha Dodson PTTon 12-26-2021 aPTT Coag (Bld) [Time] 26.2 s Normal 22.3-36.2 [facility] Comment on above: Performed By: #### T JESI, BMP #### [facility] [address] [place] [address] Dr. Tasha Dodson SODIUM RANDOM URINEon 2021 Sodium (U) [Moles/Vol] 71 mmol/L Normal 30-90 [facility] Comment on above: Performed By: #### T SH, BMP #### [facility] [address] [place] [address] Dr. Tasha Dodson T4on 12-26-2021 T4 [Mass/Vol] 10.60 ug/dL Normal 4.80-13.90 [facility] Comment on above: Performed By: #### C BC #### [facility] [address] [place] [address] Dr. Tasha Dodson TSHon 12-26-2021 TSH 5.236 uIU/mL Critically high 0.358-3.740 [facility] Comment on above: Performed By: #### C BC #### [facility] [address] [place] [address] Dr. Tasha Dodson URINE MICROSCOPIC ONLYon BACTERIA TRACE Abnormal NONE SEEN [facility] Comment on above: Performed By: #### T SH, BMP #### [facility] [address] [place] [address] Dr. Tasha Dodson Bacteria identified Cx Nom (U) NOT INDICATED Normal [facility] Comment on above: Performed By: #### T SH, BMP #### [facility] [address] [place] [address] Dr. Tasha Dodson CAST NONE SEEN Normal NONE SEEN [facility] Comment on above: Performed By: #### T SH, BMP #### [facility] [address] [place] [address] Dr. Tasha Dodson Crystals LM Nom (Urine sed) NONE SEEN Normal NONE SEEN [facility] Comment on above: Performed By: #### T SH, BMP #### [facility] [address] [place] [address] Dr. Tasha Dodson Epithelial cells LM Ql (Urine sed) NONE SEEN Normal NONE SEEN /RARE [facility] Comment on above: Performed By: #### T SH, BMP #### [facility] [address] [place] [address] Dr. Tasha Dodson MUCOUS NONE SEEN Normal NONE SEEN [facility] Comment on above: Performed By: #### T SH, BMP #### [facility] [address] [address] [address] Tasha Dodson RBC 0-2 Normal 0-2 [facility] Comment on above: Performed By: #### T PAWAN DENNISON #### [facility] [address] [address] [address] Tasha Dodson WBC 0-2 Abnormal NONE SEEN [facility] Comment on above: Performed By: #### T PAWAN DENNISON #### [facility] [address] [address] [address] Tasha Dodson XR CHEST 1 Von [...] TING MIXON Date: 2021-12-26 11:32 Normal [facility] XR LSPINE MIN 4 VIEWSon 11-20 [...] by: JESUS BRUNO Date: 2021-11-30 22:52 Normal [facility] CBC AUTO DIFFon 11-09-2021 BASO # 0.1 103/ul Normal 0.0-0.1 [facility] Comment on above: Performed By: #### C MADM, LIPA, BNP, CMP #### [facility] [address] [place] [address] Dr. Tasha Dodson Basophils/100 WBC (Bld) 0.7 % Normal 0.2-2.0 [facility] Comment on above: Performed By: #### C MADM, LIPA, BNP, CMP #### [facility] [address] [place] [address] Dr. Tasha Dodson EO # 0.2 103/ul Normal 0.0-0.7 [facility] Comment on above: Performed By: #### C MADM, LIPA, BNP, CMP #### [facility] [address] [place] [address] Dr. Tasha Dodson Eosinophils/100 WBC (Bld) 1.8 % Normal 0.9-7.0 [facility] Comment on above: Performed By: #### C MADM, LIPA, BNP, CMP #### [facility] [address] [place] [address] Dr. Tasha Dodson Erythrocyte distribution width (RBC) [Ratio] 13.0 % Normal 11.0-15.0 [facility] Comment on above: Performed By: #### C MADM, LIPA, BNP, CMP #### [facility] [address] [place] [address] Dr. Tasha Dodson Hematocrit (Bld) [Volume fraction] 33.8 % Critically low 36.0-48.0 [facility] Comment on above: Performed By: #### C MADM, LIPA, BNP, CMP #### [facility] [address] [place] [address] Dr. Tasha Dodson Hemoglobin (Bld) [Mass/Vol] 12.5 g/dL Normal 12.0-16.0 [facility] Comment on above: Performed By: #### C MADM, LIPA, BNP, CMP #### [facility] [address] [place] [address] Dr. Tasha Dodson IG # 0.02 10e3/ul Normal 0.00-0.03 [facility] Comment on above: Performed By: #### C MADM, LIPA, BNP, CMP #### [facility] [address] [place] [address] Dr. Tasha Dodson IG % 0.2 % Normal 0.0-0.5 [facility] Comment on above: Performed By: #### C MADM, LIPA, BNP, CMP #### [facility] [address] [place] [address] Dr. Tasha Dodson LYMPH # 2.9 103/ul Normal 1.2-3.8 [facility] Comment on above: Performed By: #### C MADM, LIPA, BNP, CMP #### [facility] [address] [place] [address] Dr. Tasha Dodson Lymphocytes/100 WBC (Bld) 29.4 % Normal 20.5-60.0 [facility] [facility] Comment on above: Performed By: #### C MADM, LIPA, BNP, CMP #### [facility] [address] [place] [address] Dr. Tasha Dodson MANUAL DIFF REQ NO Normal [facility] Comment on above: Performed By: #### C MADM, LIPA, BNP, CMP #### [facility] [address] [place] [address] Dr. Tasha Dodson MCH (RBC) [Entitic mass] 34.1 pg Critically high 26.7-34.0 [facility] Comment on above: Performed By: #### C MADM, LIPA, BNP, CMP #### [facility] [address] [place] [address] Dr. Tasha Dodson MCHC (RBC) [Mass/Vol] 37.0 g/dL Critically high 29.9-35.2 [facility] Comment on above: Performed By: #### C MADM, LIPA, BNP, CMP #### [facility] [address] [place] [address] Dr. Tasha Dodson MCV (RBC) [Entitic vol] 92.1 fL Normal 81.0-99.0 [facility] Comment on above: Performed By: #### C MADM, LIPA, BNP, CMP #### [facility] [address] [place] [address] Dr. Tasha Dodson MONO # 0.8 103/ul Normal 0.3-0.8 [facility] Comment on above: Performed By: #### C MADM, LIPA, BNP, CMP #### [facility] [address] [place] [address] Dr. Tasha Dodson Monocytes/100 WBC (Bld) 8.2 % Normal 1.7-12.0 [facility] Comment on above: Performed By: #### C MADM, LIPA, BNP, CMP #### [facility] [address] [place] [address] Dr. Tasha Dodson NEUT # 5.9 103/ul Normal 1.4-6.5 [facility] Comment on above: Performed By: #### C MADM, LIPA, BNP, CMP #### [facility] [address] [place] [address] Dr. Tasha Dodson Neutrophils/100 WBC (Bld) 59.7 % Normal 43.0-75.0 [facility] Comment on above: Performed By: #### C MADM, LIPA, BNP, CMP #### [facility] [address] [place] [address] Dr. Tasha Dodson Platelet mean volume (Bld) [Entitic vol] 8.9 fL Critically low 9.5-13.5 [facility] Comment on above: Performed By: #### C MADM, LIPA, BNP, CMP #### [facility] [address] [place] [address] Dr. Tasha Dodson PLT 370 103/ul Normal 150-450 [facility] Comment on above: Performed By: #### C MADM, LIPA, BNP, CMP #### [facility] [address] [place] [address] Dr. Tasha Dodson RBC 3.67 106/ul Critically low 4.20-5.40 [facility] Comment on above: Performed By: #### C MADM, LIPA, BNP, CMP #### [facility] [address] [place] [address] Dr. Tasha Dodson WBC 9.9 103/ul Normal 4.0-11.0 [facility] Comment on above: Performed By: #### C MADM, LIPA, BNP, CMP #### [facility] [address] [place] [address] Dr. Tasha Dodson FREE T4on 11-09-2021 Free T4 [Mass/Vol] 1.48 ng/dL Critically high 0.76-1.46 [facility] Comment on above: Performed By: #### F T4 #### [facility] [address] [place] [address] Dr. Tasha Dodson PROF CHEM 8 (BAS METB)on Anion gap [Moles/Vol] 11.1 mmol/L Normal [facility] Comment on above: Performed By: #### T SH, BMP #### [facility] [address] [place] [address] Dr. Tasha Dodson Calcium [Mass/Vol] 9.3 mg/dL Normal 8.5-10.1 [facility] Comment on above: Performed By: #### T SH, BMP #### [facility] [address] [place] [address] Dr. Tasha Dodson Chloride [Moles/Vol] 92 mmol/L Critically low 98-107 [facility] Comment on above: Performed By: #### T SH, BMP #### [facility] [address] [place] [address] Dr. Tasha Dodson CO2 [Moles/Vol] 29.2 mmol/L Normal 21.0-32.0 [facility] Comment on above: Performed By: #### T SH, BMP #### [facility] [address] [place] [address] Dr. Tasha Ddoson Creatinine [Mass/Vol] 0.68 mg/dL Normal 0.55-1.02 [facility] Comment on above: Performed By: #### T SH, BMP #### [facility] [address] [place] [address] Dr. Tasha Dodson EGFR-AF MOZAMBICAN >60 Normal >=60 [facility] Comment on above: Performed By: #### T SH, BMP #### [facility] [address] [address] [address] Tasha Dodson EGFR-NON AF MOZAMBICAN >60 Normal >=60 [facility] Comment on above: Performed By: #### T SH, BMP #### [facility] [address] [address] [address] Tasha Dodson Glucose [Mass/Vol] 109 mg/dL Critically high 74-106 [facility] Comment on above: Performed By: #### T SH, BMP #### [facility] [address] [address] [address] Tasha Dodson Potassium [Moles/Vol] 3.3 mmol/L Critically low 3.5-5.1 [facility] Comment on above: Performed By: #### T SH, BMP #### [facility] [address] [place] [address] Dr. Tasha Dodson Sodium [Moles/Vol] 129 mmol/L Critically low 136-145 [facility] Comment on above: Performed By: #### T SH, BMP #### [facility] [address] [address] [address] Tasha Dodson Urea nitrogen [Mass/Vol] 9.0 mg/dL Normal 7.0-18.0 [facility] Comment on above: Performed By: #### T SH, BMP #### [facility] [address] [place] [address] Dr. Tasha Dodson Urea nitrogen/Creatinine [Mass ratio] 13.2 mg/mg Normal [facility] Comment on above: Performed By: #### T SH, BMP #### [facility] [address] [address] [address] Tasha Dodson TSHon 11-09-2021 TSH 1.193 uIU/mL Normal 0.358-3.740 [facility] Comment on above: Performed By: #### T SH, BMP #### [facility] [address] [place] [address] Dr. Tasha Dodson LIPID PROFILEon 08-06-2021 CHOL-HDL RATIO NORM SEE BELOW Normal [facility] Comment on above: Result Comment: 3.3 - 4.4 LOW RISK 4.4 - 7.1 AVERAGE RISK 7.1 - 11.0 MODERATE RISK >11.0 HIGH RISK Performed By: #### C MADM, LIPA, BNP, CMP #### [facility] [address] [address] [address] Tasha Dodson Cholesterol [Mass/Vol] 198 mg/dL Normal <=200 Th [facility] Comment on above: Performed By: #### C MADM, LIPA, BNP, CMP #### [facility] [address] [address] [address] Tasha Dodson Cholesterol in HDL [Mass/Vol] 77 mg/dL Critically high 40-60 [facility] Comment on above: Performed By: #### C MADM, LIPA, BNP, CMP #### [facility] [address] [address] [address] Tasha Dodson Cholesterol in LDL [Mass/Vol] 106.0 mg/dL Normal [facility] Comment on above: Performed By: #### C MADM, LIPA, BNP, CMP #### [facility] [address] [address] [address] Tasha Dodson Cholesterol.total/Shahana sterol in HDL [Mass ratio] 2.6 {ratio} Normal [facility] Comment on above: Performed By: #### C MADM, LIPA, BNP, CMP #### [facility] [address] [address] [address] Tasha Dodson HDL NORMAL > or = 60 mg/dl - LO W CARDIOVASCULAR RISK <40 mg/dl - HIGH CARDIOVASCULAR RISK Normal [facility] Comment on above: Performed By: #### C MADM, LIPA, BNP, CMP #### [facility] [address] [address] [address] Tasha Dodson LDL CALC NORMAL SEE BELOW Normal [facility] Comment on above: Result Comment: <100 mg/dl OPTIMAL 100 - 129 mg/dl NEAR OR ABOVE OPTIMAL 130 - 159 mg/dl BORDERLINE HIGH 160 - 189 mg/dl HIGH >190 mg/dl VERY HIGH Performed By: #### C MADM, LIPA, BNP, CMP #### [facility] [address] [address] [address] Tasha Dodson Triglyceride [Mass/Vol] 75 mg/dL Normal <=150 T [facility] Comment on above: Performed By: #### C MADM, LIPA, BNP, CMP #### [facility] [address] [address] [address] Tasha Dodson VLDL CALC 15.0 mg/dL Normal [facility] Comment on above: Performed By: #### C MADM, LIPA, BNP, CMP #### [facility] [address] [address] [address] Tasha Dodson LIVER PROFILEon 08-06-2021 Albumin [Mass/Vol] 3.7 g/dL Normal 3.4-5.0 [facility] Comment on above: Performed By: #### C MADM, LIPA, BNP, CMP #### [facility] [address] [address] [address] Tasha Dodson Albumin/Globulin [Mass ratio] 1.0 {ratio} Normal [facility] Comment on above: Performed By: #### C MADM, LIPA, BNP, CMP #### [facility] [address] [address] [address] Tasha Dodson ALP [Catalytic activity/Vol] 62 U/L Normal 46-116 [facility] Comment on above: Performed By: #### C MADM, LIPA, BNP, CMP #### [facility] [address] [address] [address] Tasha Dodson ALT [Catalytic activity/Vol] 26 U/L Normal 14-59 [facility] Comment on above: Performed By: #### C MADM, LIPA, BNP, CMP #### [facility] [address] [address] [address] Tasha Dodson AST [Catalytic activity/Vol] 24 U/L Normal 15-37 [facility] Comment on above: Performed By: #### C MADM, LIPA, BNP, CMP #### [facility] [address] [address] [address] Tasha Dodson BILI, CONJUGATED 0.1 mg/dL Normal 0.0-0.2 [facility] Comment on above: Performed By: #### C MADM, LIPA, BNP, CMP #### [facility] [address] [place] [address] Dr. Tasha Dodson Bilirubin [Mass/Vol] 0.5 mg/dL Normal 0.2-1.0 [facility] Comment on above: Performed By: #### C MADM, LIPA, BNP, CMP #### [facility] [address] [place] [address] Dr. Tasha Dodson Globulin (S) [Mass/Vol] 3.8 g/dL Normal [facility] Comment on above: Performed By: #### C MADM, LIPA, BNP, CMP #### [facility] [address] [place] [address] Dr. Tasha Dodson Protein [Mass/Vol] 7.5 g/dL Normal 6.4-8.2 [facility] Comment on above: Performed By: #### C MADM, LIPA, BNP, CMP #### [facility] [address] [place] [address] Dr. Tasha Dodson FREE T4on 07-28-2021 Free T4 [Mass/Vol] 1.32 ng/dL Normal 0.76-1.46 [facility] Comment on above: Performed By: #### T SH, BMP #### [facility] [address] [place] [address] Dr. Tasha Dodson PROF CHEM 8 (BAS METB)on Anion gap [Moles/Vol] 11.6 mmol/L Normal [facility] Comment on above: Performed By: #### B MP, TSH #### [facility] [address] [place] [address] Dr. Tasha Dodson Calcium [Mass/Vol] 9.4 mg/dL Normal 8.5-10.1 [facility] Comment on above: Performed By: #### B MP, TSH #### [facility] [address] [place] [address] Dr. Tasha Dodson Chloride [Moles/Vol] 93 mmol/L Critically low 98-107 [facility] Comment on above: Performed By: #### B MP, TSH #### [facility] [address] [address] [address] Tasha Dodson CO2 [Moles/Vol] 29.8 mmol/L Normal 21.0-32.0 [facility] Comment on above: Performed By: #### B MP, TSH #### [facility] [address] [address] [address] Tasha Dodson Creatinine [Mass/Vol] 0.74 mg/dL Normal 0.55-1.02 [facility] Comment on above: Performed By: #### B MP, TSH #### [facility] [address] [place] [address] Dr. Tasha Dodson EGFR-AF MOZAMBICAN >60 Normal >=60 [facility] Comment on above: Performed By: #### B MP, TSH #### [facility] [address] [place] [address] Dr. Tasha Dodson EGFR-NON AF MOZAMBICAN >60 Normal >=60 [facility] Comment on above: Performed By: #### B MP, TSH #### [facility] [address] [address] [address] Tasha Dodson Glucose [Mass/Vol] 114 mg/dL Critically high 74-106 [facility] Comment on above: Performed By: #### B MP, TSH #### [facility] [address] [address] [address] Tasha Dodson Potassium [Moles/Vol] 3.4 mmol/L Critically low 3.5-5.1 [facility] Comment on above: Performed By: #### B MP, TSH #### [facility] [address] [address] [address] Tasha Dodson Sodium [Moles/Vol] 131 mmol/L Critically low 136-145 Th [facility] Comment on above: Performed By: #### B MP, TSH #### [facility] [address] [address] [address] Tasha Dodson Urea nitrogen [Mass/Vol] 12.0 mg/dL Normal 7.0-18.0 [facility] Comment on above: Performed By: #### B MP, TSH #### [facility] [address] [address] [address] Tasha Dodson Urea nitrogen/Creatinine [Mass ratio] 16.2 mg/mg Normal [facility] Comment on above: Performed By: #### B MP, TSH #### [facility] [address] [address] [address] Tasha Dodson TSHon 07-28-2021 TSH 1.790 uIU/mL Normal 0.358-3.740 [facility] Comment on above: Performed By: #### B MP, TSH #### [facility] [address] [place] [address] Dr. Tasha Dodson TSH RANGE SEE BELOW Normal [facility] Comment on above: Result Comment: <0.3 4 UIU/ml HYPERTHYROID 0.34-5.60 UIU/ml EUTHYROID >5.60 UIU/ml HYPOTHYROID Performed By: #### B MP, TSH #### [facility] [address] [address] [address] Tasha Dodson CBC Auto Differentialon 10-0 Basophils (Bld) [#/Vol] 0.1 10*3/uL 0 - 0.2 K/uL [place] Basophils/100 WBC (Bld) 1.1 % M [place] Eosinophils (Bld) [#/Vol] 0.2 10*3/uL 0 - 0.7 K/uL [place] Eosinophils/100 WBC (Bld) 1.4 % [place] Erythrocyte distribution width (RBC) [Ratio] 14.4 % 11.5 - 14.5 % [place] Hematocrit (Bld) [Volume fraction] 33.6 % Low 37 - 47 % [place] Hemoglobin (Bld) [Mass/Vol] 11.1 g/dL Low 12 - 16 g/dL [place] Interpretation and review of laboratory results Abnormal [place] Lymphocytes (Bld) [#/Vol] 2.3 10*3/uL 1 - 4.8 K/uL [place] Lymphocytes/100 WBC (Bld) 18.0 % [place] MCH (RBC) [Entitic mass] 29.5 pg 27 - 31.3 pg [place] MCHC (RBC) [Mass/Vol] 33.0 % 33 - 37 % [place] MCV (RBC) [Entitic vol] 89.5 fL 82 - 100 fL [place] Monocytes (Bld) [#/Vol] 0.9 10*3/uL High 0.2 - 0.8 K/uL [place] Monocytes/100 WBC (Bld) 6.9 % [place] Neutrophils Absolute 9.1 K/uL High 1.4 - 6 .5 K/uL [place] Neutrophils/100 WBC (Bld) 72.6 % [place] Platelets (Bld) [#/Vol] 548 10*3/uL High 130 - 400 K/uL [place] RBC (Bld) [#/Vol] 3.75 10*6/uL Low [place] WBC (Bld) [#/Vol] 12.5 10*3/uL High 4.8 - 10.8 K/uL [place] CBC With Platelet and Differ entialon 11-20-2018 Basophils (Bld) [#/Vol] 0.1 10*3/uL Normal 0.0-0.2 [facility] Comment on above: Performed By: #### E SR #### [facility] [address] [facility] [address] Basophils/100 WBC (Bld) 1.1 % Normal [facility] Comment on above: Performed By: #### E SR #### [facility] [address] [facility] [address] Eosinophils (Bld) [#/Vol] 0.2 10*3/uL Normal 0.0-0.7 [facility] Comment on above: Performed By: #### E SR #### [facility] [address] [place] [address] Eosinophils/100 WBC (Bld) 1.4 % Normal [facility] Comment on above: Performed By: #### E SR #### [facility] [address] [place] [address] Erythrocyte distribution width (RBC) [Ratio] 14.4 % Normal 11.5-14.5 [facility] Comment on above: Performed By: #### E SR #### [facility] [address] [place] [address] Hematocrit (Bld) [Volume fraction] 33.6 % Low 37.0-47.0 [facility] Comment on above: Performed By: #### E SR #### [facility] [address] [place] [address] Hemoglobin (Bld) [Mass/Vol] 11.1 g/dL Low 12.0-16.0 [facility] Comment on above: Performed By: #### E SR #### [facility] [address] [place] [address] Lymphocytes (Bld) [#/Vol] 2.3 10*3/uL Normal 1.0-4.8 [facility] Comment on above: Performed By: #### E SR #### [facility] [address] [place] [address] Lymphocytes/100 WBC (Bld) 18.0 % Normal [facility] Comment on above: Performed By: #### E SR #### [facility] [address] [place] [address] MCH (RBC) [Entitic mass] 29.5 pg Normal 27.0-31.3 [facility] Comment on above: Performed By: #### E SR #### [facility] [address] [place] [address] MCHC (RBC) [Mass/Vol] 33.0 % Normal 33.0-37.0 [facility] Comment on above: Performed By: #### E SR #### [facility] [address] [place] [address] MCV (RBC) [Entitic vol] 89.5 fL Normal 82.0-100.0 [facility] Comment on above: Performed By: #### E SR #### [facility] [address] [place] [address] Monocytes (Bld) [#/Vol] 0.9 10*3/uL Critically high 0.2-0. 8 [facility] Comment on above: Performed By: #### E SR #### [facility] [address] [place] [address] Monocytes/100 WBC (Bld) 6.9 % Normal [facility] Comment on above: Performed By: #### E SR #### [facility] [address] [place] [address] Neutrophils (Bld) [#/Vol] 9.1 10*3/uL Critically high 1.4-6.5 [facility] Comment on above: Performed By: #### E SR #### [facility] [address] [place] [address] Neutrophils/100 WBC (Bld) 72.6 % Normal [facility] Comment on above: Performed By: #### E SR #### [facility] [address] [place] [address] Platelets (Bld) [#/Vol] 548 10*3/uL Critically high 130-40 0 [facility] Comment on above: Performed By: #### E SR #### [facility] [address] [place] [address] RBC (Bld) [#/Vol] 3.75 10*6/uL Low 4.20-5.40 [facility] Comment on above: Performed By: #### E SR #### [facility] [address] [place] [address] WBC (Bld) [#/Vol] 12.5 10*3/uL Critically high 4.8-10.8 [facility] Comment on above: Performed By: #### E SR #### [facility] [address] [place] [address] EKG 12 Leadon 11-20-2018 Atrial Rate 79 BPM [place] P [place] 58 degrees [place] P-R Interval 176 ms [place] Q-T Interval 404 ms [facility], [place] QRS Duration 130 ms [place] QTc Calculation (Bazett) 463 ms [place] R [place] -11 degrees [facility], [place] T [place] 5 degrees [place] Urea nitrogen [Mass/Vol] Normal sinus rhythm Right bundle branch block Moderate voltage criteria for LVH, may be normal variant Abnormal ECG When compared with ECG of 13-NOV-2018 08:33, No significant change was found Confirmed by Анна Zamarripa ([id number]) on 11/20/2018 9:39:56 AM [place] Ventricular Rate 79 BPM [place] Joseph, Chpo Incoming Results From [place] - 11/20/2018 9:40 AM EDT Normal sinus rhythm Right bundle branch block Moderate voltage criteria for LVH, may be normal variant Abnormal ECG When compared with ECG of 13-NOV-2018 08:33, No significant change was found Confirmed by Анна Zamarripa ([id number]) on 11/20/2018 9:39:56 AM [place] CBC Auto Differentialon 10-23 Neutrophils Absolute 6.1 K/uL 1.4 - 6 .5 K/uL [place] CBC With Platelet and Differ entialon 11-19-2018 Basophils (Bld) [#/Vol] 0.2 10*3/uL Normal 0.0-0.2 [place] Comment on above: Performed By: #### C MP #### [facility] [address] [place] [address] Basophils/100 WBC (Bld) 1.5 % Normal [place] Comment on above: Performed By: #### C MP #### [facility] [address] [place] [address] Eosinophils (Bld) [#/Vol] 0.3 10*3/uL Normal 0.0-0.7 [place] Comment on above: Performed By: #### C MP #### [facility] [address] [place] [address] Eosinophils/100 WBC (Bld) 2.5 % Normal [place] Comment on above: Performed By: #### C MP #### [facility] [address] [place] [address] Erythrocyte distribution width (RBC) [Ratio] 14.1 % Normal 11.5-14.5 [place] Comment on above: Performed By: #### C MP #### [facility] [address] [place] [address] Hematocrit (Bld) [Volume fraction] 29.3 % Low 37.0-47.0 [place] Comment on above: Performed By: #### C MP #### [facility] [address] [place] [address] Hemoglobin (Bld) [Mass/Vol] 10.1 g/dL Low 12.0-16.0 [place] Comment on above: Performed By: #### C MP #### [facility] [address] [place] [address] Lymphocytes (Bld) [#/Vol] 2.8 10*3/uL Normal 1.0-4.8 [place] Comment on above: Performed By: #### C MP #### [facility] [address] [place] [address] Lymphocytes/100 WBC (Bld) 27.3 % Normal [place] Comment on above: Performed By: #### C MP #### [facility] [address] [place] [address] MCH (RBC) [Entitic mass] 30.7 pg Normal 27.0-31.3 [place] Comment on above: Performed By: #### C MP #### [facility] [address] [facility] [place] [address] MCHC (RBC) [Mass/Vol] 34.6 % Normal 33.0-37.0 [place] Comment on above: Performed By: #### C MP #### [facility] [address] [place] [address] MCV (RBC) [Entitic vol] 88.9 fL Normal 82.0-100.0 [place] Comment on above: Performed By: #### C MP #### [facility] [address] [place] [address] Monocytes (Bld) [#/Vol] 0.9 10*3/uL Critically high 0.2-0. 8 [place] Comment on above: Performed By: #### C MP #### [facility] [address] [place] [address] Monocytes/100 WBC (Bld) 9.2 % Normal [place] Comment on above: Performed By: #### C MP #### [facility] [address] [place] [address] Neutrophils (Bld) [#/Vol] 6.1 10*3/uL Normal 1.4-6.5 [facility] Comment on above: Performed By: #### C MP #### [facility] [address] [place] [address] Neutrophils/100 WBC (Bld) 59.5 % Normal [place] Comment on above: Performed By: #### C MP #### [facility] [address] [place] [address] Platelets (Bld) [#/Vol] 396 10*3/uL Normal 130-400 [place] Comment on above: Performed By: #### C MP #### [facility] [address] [place] [address] RBC (Bld) [#/Vol] 3.30 10*6/uL Low 4.20-5.40 [place] Comment on above: Performed By: #### C MP #### [facility] [address] [place] [address] WBC (Bld) [#/Vol] 10.2 10*3/uL Normal 4.8-10.8 [place] Comment on above: Performed By: #### C MP #### [facility] [address] [place] [address] High Sensitivity CRPon 11-19 High Sensitivity CRP 89.2 mg/L Critically high 0.0-5.0 [facility] Comment on above: Performed By: #### E SR #### [facility] [address] [place] [address] High sensitivity CRPon 11-19 CRP High Sensitivity 89.2 mg/L High 0 - 5 mg/L [place] Interpretation and review of laboratory results Abnormal [place] Otheron 11-19-2018 Interpretation and review of laboratory results Abnormal [place] Sedimentation Rateon 019 Sedimentation Rate 55 mm Critically high 0-30 M [facility] Comment on above: Performed By: #### C MP #### [facility] [address] [place] [address] Sed Rate 55 mm High 0 - 30 mm [place] Basic Metabolic Panelon 10-22 Anion gap [Moles/Vol] 14 mmol/L Normal 9-15 [facility] Comment on above: Performed By: #### C MP #### [facility] [address] [place] [address] Calcium [Mass/Vol] 8.8 mg/dL Normal 8.5-9.9 [facility] Comment on above: Performed By: #### C MP #### [facility] [address] [place] [address] Chloride [Moles/Vol] 95 mmol/L Normal 95-107 [facility] Comment on above: Performed By: #### C MP #### [facility] [address] [place] [address] CO2 [Moles/Vol] 26 mmol/L Normal 20-31 [facility] Comment on above: Performed By: #### C MP #### [facility] [address] [place] [address] Creatinine [Mass/Vol] 0.58 mg/dL Normal 0.50-0.90 [facility] Comment on above: Performed By: #### C MP #### [facility] [address] [place] [address] GFR/1.73 sq M predicted among blacks MDRD (S/P/Bld) [Vol rate/Area] mL/min/{1.73_m2} Normal >60 [facility] Comment on above: Result Comment: >60 mL/min/1.73m2 EGFR, calc. for ages 18 and older using the MDRD formula (not corrected for weight), is valid for stable renal function. Performed By: #### C MP #### [facility] [address] [place] [address] GFR/1.73 sq M.predicted MDRD (S/P/Bld) [Vol rate/Area] mL/min/{1.73_m2} Normal >60 [facility] Comment on above: Result Comment: >60 mL/min/1.73m2 EGFR, calc. for ages 18 and older using the MDRD formula (not corrected for weight), is valid for stable renal function. Performed By: #### C MP #### [facility] [address] [place] [address] Glucose [Mass/Vol] 156 mg/dL Critically high 70-99 M [facility] Comment on above: Performed By: #### C MP #### [facility] [address] [place] [address] Potassium [Moles/Vol] 3.3 mmol/L Low 3.4-4.9 [facility] Comment on above: Performed By: #### C MP #### [facility] [address] [place] [address] Sodium [Moles/Vol] 135 mmol/L Normal 135-144 [facility] Comment on above: Performed By: #### C MP #### [facility] [address] [place] [address] Urea nitrogen [Mass/Vol] 11 mg/dL Normal 8-23 [facility] Comment on above: Performed By: #### C MP #### [facility] [address] [place] [address] Anion gap [Moles/Vol] 14 mmol/L [place], [place] Calcium [Mass/Vol] 8.8 mg/dL 8.5 - 9.9 mg/dL [place] Chloride [Moles/Vol] 95 mmol/L [place] CO2 [Moles/Vol] 26 mmol/L [place] Creatinine [Mass/Vol] 0.58 mg/dL 0.5 - 0.9 mg/dL [place] GFR >60.0 >60 [place] Comment on above: >60 mL/min/1.73m2 EG FR, calc. for ages 18 and older using the MDRD formula (not corrected for weight), is valid for stable renal function. GFR Non- >60.0 >60 [place] Comment on above: >60 mL/min/1.73m2 EG FR, calc. for ages 18 and older using the MDRD formula (not corrected for weight), is valid for stable renal function. Glucose [Mass/Vol] 156 mg/dL High 70 - 99 mg/dL [place] Interpretation and review of laboratory results Abnormal [place] Potassium [Moles/Vol] 3.3 mmol/L Low [place] Sodium [Moles/Vol] 135 mmol/L [place] Urea nitrogen [Mass/Vol] 11 mg/dL 8 - 23 mg/dL [place] Magnesiumon 11-18-2018 Magnesium [Mass/Vol] 1.8 mg/dL Normal 1.7-2.4 [facility] Comment on above: Performed By: #### C MP #### [facility] [address] [place] [address] Magnesium [Mass/Vol] 1.8 mg/dL 1.7 - 2 .4 mg/dL [place] TSH w/out Reflexon 9 TSH Qn 0.880 uIU/mL Normal 0.440-3.86 [facility] Comment on above: Performed By: #### C MP #### [facility] [address] [place] [address] TSH without Reflexon 019 TSH Qn 0.880 m[IU]/L [place] CBC Auto Differentialon 10-22 Basophils (Bld) [#/Vol] 0.1 10*3/uL 0 - 0.2 K/uL [place] Basophils/100 WBC (Bld) 0.7 % [place] Eosinophils (Bld) [#/Vol] 0.4 10*3/uL 0 - 0.7 K/uL [place] Eosinophils/100 WBC (Bld) 2.8 % [place] Erythrocyte distribution width (RBC) [Ratio] 14.2 % 11.5 - 14.5 % [place] Hematocrit (Bld) [Volume fraction] 32.3 % Low 37 - 47 % [place] Hemoglobin (Bld) [Mass/Vol] 10.8 g/dL Low 12 - 16 g/dL [place] Interpretation and review of laboratory results Abnormal [place] Lymphocytes (Bld) [#/Vol] 2.6 10*3/uL 1 - 4.8 K/uL [place] Lymphocytes/100 WBC (Bld) 16.8 % [place] MCH (RBC) [Entitic mass] 30.3 pg 27 - 31.3 pg [place] MCHC (RBC) [Mass/Vol] 33.4 % 33 - 37 % [place] MCV (RBC) [Entitic vol] 90.5 fL 82 - 100 fL [place] Monocytes (Bld) [#/Vol] 1.3 10*3/uL High 0.2 - 0.8 K/uL [place] Monocytes/100 WBC (Bld) 8.3 % [place] Neutrophils Absolute 11.1 K/uL High 1.4 - 6 .5 K/uL [place] Neutrophils/100 WBC (Bld) 71.4 % [place] Platelets (Bld) [#/Vol] 375 10*3/uL 130 - 400 K/uL [place] RBC (Bld) [#/Vol] 3.57 10*6/uL Low [place] WBC (Bld) [#/Vol] 15.5 10*3/uL High 4.8 - 10.8 K/uL [place] CBC With Platelet and Differ entialon 11-17-2018 Basophils (Bld) [#/Vol] 0.1 10*3/uL Normal 0.0-0.2 [facility] Comment on above: Performed By: #### C MP #### [facility] [address] [place] [address] Basophils/100 WBC (Bld) 0.7 % Normal [facility] Comment on above: Performed By: #### C MP #### [facility] [address] [place] [address] Eosinophils (Bld) [#/Vol] 0.4 10*3/uL Normal 0.0-0.7 [facility] Comment on above: Performed By: #### C MP #### [facility] [address] [place] [address] Eosinophils/100 WBC (Bld) 2.8 % Normal [facility] Comment on above: Performed By: #### C MP #### [facility] [address] [place] [address] Erythrocyte distribution width (RBC) [Ratio] 14.2 % Normal 11.5-14.5 [facility] Comment on above: Performed By: #### C MP #### [facility] [address] [place] [address] Hematocrit (Bld) [Volume fraction] 32.3 % Low 37.0-47.0 [facility] Comment on above: Performed By: #### C MP #### [facility] [address] [place] [address] Hemoglobin (Bld) [Mass/Vol] 10.8 g/dL Low 12.0-16.0 [facility] Comment on above: Performed By: #### C MP #### [facility] [address] [place] [address] Lymphocytes (Bld) [#/Vol] 2.6 10*3/uL Normal 1.0-4.8 [facility] Comment on above: Performed By: #### C MP #### [facility] [address] [place] [address] Lymphocytes/100 WBC (Bld) 16.8 % Normal [facility] Comment on above: Performed By: #### C MP #### [facility] [address] [place] [place] [address] MCH (RBC) [Entitic mass] 30.3 pg Normal 27.0-31.3 [facility] Comment on above: Performed By: #### C MP #### [facility] [address] [place] [address] MCHC (RBC) [Mass/Vol] 33.4 % Normal 33.0-37.0 [facility] Comment on above: Performed By: #### C MP #### [facility] [address] [place] [address] MCV (RBC) [Entitic vol] 90.5 fL Normal 82.0-100.0 M [facility] Comment on above: Performed By: #### C MP #### [facility] [address] [place] [address] Monocytes (Bld) [#/Vol] 1.3 10*3/uL Critically high 0.2-0. 8 [facility] Comment on above: Performed By: #### C MP #### [facility] [address] [place] [address] Monocytes/100 WBC (Bld) 8.3 % Normal M [facility] Comment on above: Performed By: #### C MP #### [facility] [address] [place] [address] Neutrophils (Bld) [#/Vol] 11.1 10*3/uL Critically high 1.4-6.5 [facility] Comment on above: Performed By: #### C MP #### [facility] [address] [place] [address] Neutrophils/100 WBC (Bld) 71.4 % Normal [facility] Comment on above: Performed By: #### C MP #### [facility] [address] [place] [place] [address] Platelets (Bld) [#/Vol] 375 10*3/uL Normal 130-400 [facility] Comment on above: Performed By: #### C MP #### [facility] [address] [place] [address] RBC (Bld) [#/Vol] 3.57 10*6/uL Low 4.20-5.40 [facility] Comment on above: Performed By: #### C MP #### [facility] [address] [place] [address] WBC (Bld) [#/Vol] 15.5 10*3/uL Critically high 4.8-10.8 [facility] Comment on above: Performed By: #### C MP #### [facility] [address] [place] [address] High Sensitivity CRPon 11-17 High Sensitivity CRP 230.1 mg/L Critically high 0.0-5.0 [facility] Comment on above: Performed By: #### C MP #### [facility] [address] [place] [address] High sensitivity CRPon 11-17 CRP High Sensitivity 230.1 mg/L High 0 - 5 mg/L [place] Interpretation and review of laboratory results Abnormal [place] Sedimentation Rateon 2 019 Sedimentation Rate 50 mm Critically high 0-30 M [facility] Comment on above: Performed By: #### C MP #### [facility] [address] [place] [address] Interpretation and review of laboratory results Abnormal [place] Sed Rate 50 mm High 0 - 30 mm [place] US DUP LOWER EXTREMITIES VAUGHN ATERAL VENOUSon 11-17-2018 NO DVT IDENTIFIED IN EITHER LOWER EXTREMITY. [place] Joseph, Chpo Incoming Radiant Results From RVXe/Pacs - 11/17/2018 8:05 AM EDT US DUP [...] NO DVT IDENTIFIED IN EITHER LOWER EXTREMITY. [place] US DUP LOWER EXTREMITIES BILATERAL VENOUS : 11/16/2018 CLINICAL HISTORY: LEG SWELLING, PAIN, DVT SUSPECTED . COMPARISON: None available. Grayscale, compression, color and waveform Doppler analysis of both lower extremity deep venous systems was performed with augmentation. FINDINGS: There is no deep venous thrombosis, abnormal masses, fluid collections or other findings of concern identified within either lower extremity. [place] Urine Cultureon 11-17-2018 Bacteria identified Cx Nom (U) No growth 24 hours [place], [place] ORDERED BY: ADDY COKER SOURCE: Urine Clean Catch COLLECTED: 11/15/18 19:05 ANTIBIOTICS AT DI.: RECEIVED : 11/15/18 19:05 [place] CBC With Platelet and Differ entialon 11-16-2018 Neutrophils (Bld) [#/Vol] 15.5 10*3/uL Critically high 1.4-6.5 [facility] Comment on above: Performed By: #### P TT #### [facility] [address] [place] [address] Basophils (Bld) [#/Vol] 0.2 10*3/uL Normal 0.0-0.2 [place] Comment on above: Performed By: #### P TT #### [facility] [address] [place] [address] Basophils/100 WBC (Bld) 0.9 % Normal [place] Comment on above: Performed By: #### P TT #### [facility] [address] [place] [address] Eosinophils (Bld) [#/Vol] 0.1 10*3/uL Normal 0.0-0.7 [place] Comment on above: Performed By: #### P TT #### [facility] [address] [place] [address] Eosinophils/100 WBC (Bld) 0.8 % Normal [place] Comment on above: Performed By: #### P TT #### [facility] [address] [place] [address] Erythrocyte distribution width (RBC) [Ratio] 14.4 % Normal 11.5-14.5 [place] Comment on above: Performed By: #### P TT #### [facility] [address] [place] [address] Hematocrit (Bld) [Volume fraction] 33.4 % Low 37.0-47.0 [place] Comment on above: Performed By: #### P TT #### [facility] [address] [place] [address] Hemoglobin (Bld) [Mass/Vol] 11.0 g/dL Low 12.0-16.0 [place] Comment on above: Performed By: #### P TT #### [facility] [address] [place] [address] Lymphocytes (Bld) [#/Vol] 1.5 10*3/uL Normal 1.0-4.8 [place] Comment on above: Performed By: #### P TT #### [facility] [address] [place] [address] Lymphocytes/100 WBC (Bld) 7.9 % Normal [place] Comment on above: Performed By: #### P TT #### [facility] [address] [place] [address] MCH (RBC) [Entitic mass] 29.4 pg Normal 27.0-31.3 [place] Comment on above: Performed By: #### P TT #### [facility] [address] [place] [address] MCHC (RBC) [Mass/Vol] 32.9 % Low 33.0-37.0 [place] Comment on above: Performed By: #### P TT #### [facility] [address] [place] [address] MCV (RBC) [Entitic vol] 89.4 fL Normal 82.0-100.0 [place] Comment on above: Performed By: #### P TT #### [facility] [address] [place] [address] Monocytes (Bld) [#/Vol] 1.3 10*3/uL Critically high 0.2-0. 8 [place] Comment on above: Performed By: #### P TT #### [facility] [address] [place] [address] Monocytes/100 WBC (Bld) 7.1 % Normal [place] Comment on above: Performed By: #### P TT #### [facility] [address] [place] [address] Neutrophils/100 WBC (Bld) 83.3 % Normal [place] Comment on above: Performed By: #### P TT #### [facility] [address] [place] [address] Platelets (Bld) [#/Vol] 304 10*3/uL Normal 130-400 [place] Comment on above: Performed By: #### P TT #### [facility] [address] [place] [address] RBC (Bld) [#/Vol] 3.74 10*6/uL Low 4.20-5.40 [place] Comment on above: Performed By: #### P TT #### [facility] [address] [facility] [address] WBC (Bld) [#/Vol] 18.6 10*3/uL Critically high 4.8-10.8 [place] Comment on above: Performed By: #### P TT #### [facility] [address] [facility] [address] CBC auto differentialon 10-22 Interpretation and review of laboratory results Abnormal [place] Neutrophils Absolute 15.5 K/uL High 1.4 - 6 .5 K/uL [place] ECHO Complete 2D W Doppler W Coloron 11-16-2018 Transthoracic Echocardiography Report (TTE) Demographics Patient Name MERCY GANDHI Gender Female Patient Number [id number] Race Unknown Ethnicity Visit Number [id number] Room Number R238 Corporate ID Date of Study 11/16/2018 Referring Physician Niki Vazquez DO Number Date of 1935 En[employer] Member [address]a Bella [address] Age 83 year(s) Interpreting [facility] Physician Cardiology Cain Quinonez MD Procedure [...] Gradient: 4.03 mmHg Estimated PASP: 40.86 mmHg [place] ED Velocity: 1.27 m/s LVOT Peak Velocity: [...] Root: 2.35 cm LVOT Diameter: 1.65 cm [facility]- [place], [place] Joseph, Chpo Incoming Cardiovascular Results From [facility] - 11/16/2018 5:05 PM EDT Transthoracic Echocardiography Report (TTE) Demographics Patient Name MADRID HIRAM Gender Female Patient Number [id number] Race Unknown Ethnicity Visit Number [id number] Room Number R238 Corporate ID Date of Study 11/16/2018 Referring Physician DO Natalia Dickens 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 1935 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) Interpreting [facility] Physician Cardiology Cain Quinonez MD Procedure [...] Gradient: 4.03 mmHg Estimated PASP: 40.86 mmHg [place] ED Velocity: 1.27 m/s LVOT Peak Velocity: [...] Root: 2.35 cm LVOT Diameter: 1.65 cm [place] Microscopic Urinalysison Bacteria, UA Negative /HPF [place] Epi Cells 3-5 /HPF [place] Interpretation and review of laboratory results Abnormal [place] RBC (U) [#/Vol] 3-5 Abnormal [place] Renal Epithelial, Urine 0-2 Abnormal /HPF [place] WBC, UA None seen [place] US CAROTID ARTERY BILATERALo n 11-16-2018 [...] Damped resistive CCA decreased decreased resistive CCA [place] Joseph, Chpo Incoming Radiant Results From [facility] - 11/16/2018 10:40 AM EDT Patient : [...] Damped resistive CCA decreased decreased resistive CCA [facility] [place] Patient 5 : 1935 Age: 83 years [...] and noncalcified plaque bilateral carotid arterial systems [place] US DUP LOWER EXTREMITIES VAUGHN ATERAL [...] Bacteria LM.HPF (Urine sed) [#/Area] Negative Normal [facility] Comment on above: Performed By: #### P TT #### [facility] [address] [place] [address] Epithelial cells LM Ql (Urine sed) 3-5 Normal [facility] Comment on above: Performed By: #### P TT #### [facility] [address] [place] [address] RBC (U) [#/Vol] 3-5 Abnormal 0-2 [facility] Comment on above: Performed By: #### P TT #### [facility] [address] [place] [address] Urine Renal Epithelial 0-2 Abnormal [facility] Comment on above: Performed By: #### P TT #### [facility] [address] [place] [address] WBC (U) [#/Vol] None seen Normal 0-5 [facility] Comment on above: Performed By: #### P TT #### [facility] [address] [place] [address] XR CHEST PORTABLEon 11-17-19 19 Joseph, Chpo Incoming Radiant Results From [employer] - 11/16/2018 10:21 AM EDT EXAMINATION: XR CHEST PORTABLE CLINICAL HISTORY: fever . History of back surgery. COMPARISONS: None available. FINDINGS: Single AP portable view the chest obtained on November 15, 2018 at 2124 hours. The heart is not enlarged. Mediastinum is not widened. Calcified aorta is not dilated. Lungs are clear. The chest wall is unremarkable. CONCLUSION: NO ACUTE PROCESS [place] EXAMINATION: XR CHES T PORTABLE CLINICAL HISTORY: fever . History of back surgery. COMPARISONS: None available. FINDINGS: Single AP portable view the chest obtained on November 15, 2018 at 2124 hours. The heart is not enlarged. Mediastinum is not widened. Calcified aorta is not dilated. Lungs are clear. The chest wall is unremarkable. CONCLUSION: NO ACUTE PROCESS [place] CBC Auto Differentialon 10-22 Anisocytosis Ql (Bld) 1+ [place] Bands Relative 4 % Low 5 - 11 % [place] Basophils (Bld) [#/Vol] 0.0 10*3/uL 0 - 0.2 K/uL [place] Basophils/100 WBC (Bld) 0.6 % [place] Eosinophils (Bld) [#/Vol] 0.0 10*3/uL 0 - 0.7 K/uL [place] Eosinophils/100 WBC (Bld) 0.9 % [place] Erythrocyte distribution width (RBC) [Ratio] 14.6 % High 11.5 - 14.5 % [place] Hematocrit (Bld) [Volume fraction] 33.3 % Low 37 - 47 % [place] Hemoglobin (Bld) [Mass/Vol] 10.9 g/dL Low 12 - 16 g/dL [place] Interpretation and review of laboratory results Abnormal [place] Lymphocytes (Bld) [#/Vol] 3.5 10*3/uL 1 - 4.8 K/uL [place] Lymphocytes/100 WBC (Bld) 17.0 % [place] MCH (RBC) [Entitic mass] 29.8 pg 27 - 31.3 pg [place] MCHC (RBC) [Mass/Vol] 32.9 % Low 33 - 37 % [place] MCV (RBC) [Entitic vol] 90.7 fL 82 - 100 fL [place] Microcytes 1+ [place] Monocytes (Bld) [#/Vol] 0.0 10*3/uL Low 0.2 - 0.8 K/uL [place] Monocytes/100 WBC (Bld) 7.7 % [place] Neutrophils Absolute 17.3 K/uL High 1.4 - 6 .5 K/uL [place] Neutrophils/100 WBC (Bld) 79.0 % [place] PLATELET SLIDE REVIEW Normal [place] Platelets (Bld) [#/Vol] 315 10*3/uL 130 - 400 K/uL [place] RBC (Bld) [#/Vol] 3.67 10*6/uL Low [place] WBC (Bld) [#/Vol] 20.8 10*3/uL High 4.8 - 10.8 K/uL [place] CBC With Platelet No Differe ntialon 11-15-2018 Erythrocyte distribution width (RBC) [Ratio] 14.5 % Normal 11.5-14.5 [facility] Comment on above: Performed By: #### P TT #### [facility] [address] [place] [address] Hematocrit (Bld) [Volume fraction] 36.9 % Low 37.0-47.0 [facility] Comment on above: Performed By: #### P TT #### [facility] [address] [place] [address] Hemoglobin (Bld) [Mass/Vol] 11.9 g/dL Low 12.0-16.0 [facility] Comment on above: Performed By: #### P TT #### [facility] [address] [place] [address] MCH (RBC) [Entitic mass] 29.4 pg Normal 27.0-31.3 [facility] Comment on above: Performed By: #### P TT #### [facility] [address] [place] [address] MCHC (RBC) [Mass/Vol] 32.3 % Low 33.0-37.0 [facility] Comment on above: Performed By: #### P TT #### [facility] [address] [place] [address] MCV (RBC) [Entitic vol] 91.1 fL Normal 82.0-100.0 [facility] Comment on above: Performed By: #### P TT #### [facility] [address] [place] [address] Platelets (Bld) [#/Vol] 341 10*3/uL Normal 130-400 [facility] Comment on above: Performed By: #### P TT #### [facility] [address] [place] [address] RBC (Bld) [#/Vol] 4.05 10*6/uL Low 4.20-5.40 [facility] Comment on above: Performed By: #### P TT #### [facility] [address] [place] [address] WBC (Bld) [#/Vol] 19.8 10*3/uL Critically high 4.8-10.8 [facility] Comment on above: Performed By: #### P TT #### [facility] [address] [place] [address] CBC With Platelet and Differ entialon 11-15-2018 Anisocytosis Ql (Bld) 1+ Normal [facility] Comment on above: Performed By: #### P TT #### [facility] [address] [place] [address] Bands 4 % Low 5-11 [facility] Comment on above: Performed By: #### P TT #### [facility] [address] [place] [address] Basophils (Bld) [#/Vol] 0.0 10*3/uL Normal 0.0-0.2 [facility] Comment on above: Performed By: #### P TT #### [facility] [address] [place] [address] Basophils/100 WBC (Bld) 0.6 % Normal [facility] Comment on above: Performed By: #### P TT #### [facility] [address] [place] [address] Eosinophils (Bld) [#/Vol] 0.0 10*3/uL Normal 0.0-0.7 [facility] Comment on above: Performed By: #### P TT #### [facility] [address] [place] [address] Eosinophils/100 WBC (Bld) 0.9 % Normal [facility] Comment on above: Performed By: #### P TT #### [facility] [address] [place] [address] Lymphocytes (Bld) [#/Vol] 3.5 10*3/uL Normal 1.0-4.8 [facility] Comment on above: Performed By: #### P TT #### [facility] [address] [place] [address] Lymphocytes/100 WBC (Bld) 17.0 % Normal [facility] Comment on above: Performed By: #### P TT #### [facility] [address] [place] [address] Microcytic 1+ Normal [facility] Comment on above: Performed By: #### P TT #### [facility] [address] [place] [address] Monocytes (Bld) [#/Vol] 0.0 10*3/uL Low 0.2-0.8 [facility] Comment on above: Performed By: #### P TT #### [facility] [address] [place] [address] Monocytes/100 WBC (Bld) 7.7 % Normal [facility] Comment on above: Performed By: #### P TT #### [facility] [address] [place] [address] Neutrophils (Bld) [#/Vol] 17.3 10*3/uL Critically high 1.4-6.5 [facility] Comment on above: Performed By: #### P TT #### [facility] [address] [place] [address] Neutrophils/100 WBC (Bld) 79.0 % Normal [facility] Comment on above: Performed By: #### P TT #### [facility] [address] [place] [address] Platelet Slide Review Normal Normal [facility] Comment on above: Performed By: #### P TT #### [facility] [address] [place] [address] Erythrocyte distribution width (RBC) [Ratio] 14.6 % Critically high 11.5-14.5 [facility] Comment on above: Performed By: #### P TT #### [facility] [address] [place] [address] Hematocrit (Bld) [Volume fraction] 33.3 % Low 37.0-47.0 [facility] Comment on above: Performed By: #### P TT #### [facility] [address] [place] [address] Hemoglobin (Bld) [Mass/Vol] 10.9 g/dL Low 12.0-16.0 [facility] Comment on above: Performed By: #### P TT #### [facility] [address] [place] [address] MCH (RBC) [Entitic mass] 29.8 pg Normal 27.0-31.3 [facility] Comment on above: Performed By: #### P TT #### [facility] [address] [place] [address] MCHC (RBC) [Mass/Vol] 32.9 % Low 33.0-37.0 [facility] Comment on above: Performed By: #### P TT #### [facility] [address] [place] [address] MCV (RBC) [Entitic vol] 90.7 fL Normal 82.0-100.0 M [facility] Comment on above: Performed By: #### P TT #### [facility] [address] [place] [address] Platelets (Bld) [#/Vol] 315 10*3/uL Normal 130-400 [facility] Comment on above: Performed By: #### P TT #### [facility] [address] [place] [address] RBC (Bld) [#/Vol] 3.67 10*6/uL Low 4.20-5.40 [facility] Comment on above: Performed By: #### P TT #### [facility] [address] [place] [address] WBC (Bld) [#/Vol] 20.8 10*3/uL Critically high 4.8-10.8 [facility] Comment on above: Performed By: #### P TT #### [facility] [address] [place] [address] Comprehensive Metabolic Pane l reflex Mgon 11-15-2018 Albumin [Mass/Vol] 3.3 g/dL Low 3.5-4.6 [facility] [facility] Comment on above: Performed By: #### P TT #### [facility] [address] [place] [address] ALP [Catalytic activity/Vol] 71 U/L Normal 40-130 [facility] Comment on above: Performed By: #### P TT #### [facility] [address] [place] [address] ALT [Catalytic activity/Vol] 12 U/L Normal 0-33 [facility] Comment on above: Performed By: #### P TT #### [facility] [address] [place] [address] Anion gap [Moles/Vol] 11 mmol/L Normal 9-15 [facility] Comment on above: Performed By: #### P TT #### [facility] [address] [place] [address] AST [Catalytic activity/Vol] 28 U/L Normal 0-35 [facility] Comment on above: Performed By: #### P TT #### [facility] [address] [place] [address] Bilirubin [Mass/Vol] 0.4 mg/dL Normal 0.2-0.7 [facility] Comment on above: Performed By: #### P TT #### [facility] [address] [place] [address] Calcium [Mass/Vol] 9.1 mg/dL Normal 8.5-9.9 [facility] Comment on above: Performed By: #### P TT #### [facility] [address] [place] [address] Chloride [Moles/Vol] 98 mmol/L Normal 95-107 [facility] Comment on above: Performed By: #### P TT #### [facility] [address] [place] [address] CO2 [Moles/Vol] 27 mmol/L Normal 20-31 [facility] Comment on above: Performed By: #### P TT #### [facility] [address] [place] [address] Creatinine [Mass/Vol] 0.59 mg/dL Normal 0.50-0.90 [facility] Comment on above: Performed By: #### P TT #### [facility] [address] [place] [address] GFR/1.73 sq M predicted among blacks MDRD (S/P/Bld) [Vol rate/Area] mL/min/{1.73_m2} Normal >60 [facility] Comment on above: Result Comment: >60 mL/min/1.73m2 EGFR, calc. for ages 18 and older using the MDRD formula (not corrected for weight), is valid for stable renal function. Performed By: #### P TT #### [facility] [address] [place] [address] GFR/1.73 sq M.predicted MDRD (S/P/Bld) [Vol rate/Area] mL/min/{1.73_m2} Normal >60 [facility] Comment on above: Result Comment: >60 mL/min/1.73m2 EGFR, calc. for ages 18 and older using the MDRD formula (not corrected for weight), is valid for stable renal function. Performed By: #### P TT #### [facility] [address] [place] [address] Globulin (S) [Mass/Vol] 3.2 g/dL Normal 2.3-3.5 [facility] Comment on above: Performed By: #### P TT #### [facility] [address] [place] [address] Glucose [Mass/Vol] 123 mg/dL Critically high 70-99 [facility] Comment on above: Performed By: #### P TT #### [facility] [address] [place] [address] Potassium reflex Mg 3.8 mEq/L Normal 3.4-4.9 [facility] Comment on above: Performed By: #### P TT #### [facility] [address] [place] [address] Protein [Mass/Vol] 6.5 g/dL Normal 6.3-8.0 [facility] Comment on above: Performed By: #### P TT #### [facility] [address] [place] [address] Sodium [Moles/Vol] 136 mmol/L Normal 135-144 [facility] Comment on above: Performed By: #### P TT #### [facility] [address] [place] [address] Urea nitrogen [Mass/Vol] 6 mg/dL Low 8-23 [facility] Comment on above: Performed By: #### P TT #### [facility] [address] [place] [address] Culture, Blood 2on 9 Culture, Blood 2 ORDERED BY: ADDY COKER SOURCE: Blood COLLECTED: 11/15/18 16:37 ANTIBIOTICS AT DI.: RECEIVED : 11/15/18 16:42 Culture, Blood 2 FINAL 11/20/18 18:15 No growth after 5 days of incubation. Normal [facility] Comment on above: Performed By: #### C MP #### [facility] [address] [place] [address] Culture, Urineon 11-15-2018 Culture, Urine ORDERED BY: ADDY COKER SOURCE: Urine Clean Catch COLLECTED: 11/15/18 19:05 ANTIBIOTICS AT DI.: RECEIVED : 11/15/18 19:05 Culture, Urine FINAL 11/17/18 07:28 No growth 24 hours Normal [facility] Comment on above: Performed By: #### C MP #### [facility] [address] [place] [address] URINE RT REFLEX TO CULTUREon 11-15-2018 Bilirubin Urine Negative Negative [place], [place] Blood, Urine TRACE Abnormal Negative [place] Clarity, UA Clear Clear [place] Color, UA Yellow Straw/Yello w [place] Glucose, Ur Negative Negative mg/dL [place] Interpretation and review of laboratory results Abnormal [place] Ketones Ql (U) Negative Negative mg/dL [place] Leukocyte esterase Test strip Ql (U) Negative Negative [place] Nitrite, Urine Negative Negative [place] pH, UA 7.0 [place] Protein (U) [Mass/Vol] 30 mg/dL Abnormal Negative Me [place], [place] Specific [place], UA 1.014 [place], [place] Urine Reflex to Culture YES M [place], [place] Urobilinogen, Urine 0.2 <2.0 E.U./dL [place] CAROTID ARTERY BILATERALo n 11-15-2018 [...] 11-15-2018 Bilirubin Ql (U) Negative Normal Negative [facility] Comment on above: Performed By: #### P TT #### [facility] [address] [place] [address] Clarity (U) Clear Normal Clear [facility] Comment on above: Performed By: #### P TT #### [facility] [address] [place] [address] Color (U) Yellow Normal Straw/[place] [facility] Comment on above: Performed By: #### P TT #### [facility] [address] [place] [address] Glucose Ql (U) Negative Normal Negative [facility] Comment on above: Performed By: #### P TT #### [facility] [address] [place] [address] Hemoglobin Ql (U) TRACE Abnormal Negative [facility] Comment on above: Performed By: #### P TT #### [facility] [address] [place] [address] Ketones Ql (U) Negative Normal Negative [facility] Comment on above: Performed By: #### P TT #### [facility] [address] [place] [address] Leukocyte esterase Test strip Ql (U) Negative Normal Negative [facility] Comment on above: Performed By: #### P TT #### [facility] [address] [place] [address] Nitrite Ql (U) Negative Normal Negative [facility] Comment on above: Performed By: #### P TT #### [facility] [address] [place] [address] pH (U) 7.0 [pH] Normal 5.0-9.0 [facility] Comment on above: Performed By: #### P TT #### [facility] [address] [place] [address] Protein Ql (U) 30 mg/dL Abnormal Negative [facility] Comment on above: Performed By: #### P TT #### [facility] [address] [place] [address] Specific gravity (U) [Rel density] 1.014 Normal 1.005-1.03 [facility] Comment on above: Performed By: #### P TT #### [facility] [address] [place] [address] Urine Reflexed to Culture YES Normal [facility] Comment on above: Performed By: #### P TT #### [facility] [address] [place] [address] Urobilinogen Qn (U) 0.2 {Juan'U}/dL Normal < 2.0 [facility] Comment on above: Performed By: #### P TT #### [facility] [address] [place] [address] XR CHEST PORTABLEon 11-16-19 19 XR CHEST [...] Anion gap [Moles/Vol] 10 mmol/L Normal 9-15 [facility] Comment on above: Performed By: #### P T #### [facility] [address] [place] [address] Calcium [Mass/Vol] 8.4 mg/dL Low 8.5-9.9 [facility] Comment on above: Performed By: #### P T #### [facility] [address] [place] [address] Chloride [Moles/Vol] 100 mmol/L Normal 95-107 [facility] Comment on above: Performed By: #### P T #### [facility] [address] [place] [address] CO2 [Moles/Vol] 25 mmol/L Normal 20-31 [facility] Comment on above: Performed By: #### P T #### [facility] [address] [place] [address] Creatinine [Mass/Vol] 0.66 mg/dL Normal 0.50-0.90 [facility] Comment on above: Performed By: #### P T #### [facility] [address] [place] [address] GFR/1.73 sq M predicted among blacks MDRD (S/P/Bld) [Vol rate/Area] mL/min/{1.73_m2} Normal >60 [facility] Comment on above: Result Comment: >60 mL/min/1.73m2 EGFR, calc. for ages 18 and older using the MDRD formula (not corrected for weight), is valid for stable renal function. Performed By: #### P T #### [facility] [address] [place] [address] GFR/1.73 sq M.predicted MDRD (S/P/Bld) [Vol rate/Area] mL/min/{1.73_m2} Normal >60 [facility] Comment on above: Result Comment: >60 mL/min/1.73m2 EGFR, calc. for ages 18 and older using the MDRD formula (not corrected for weight), is valid for stable renal function. Performed By: #### P T #### [facility] [address] [place] [address] Glucose [Mass/Vol] 144 mg/dL Critically high 70-99 M [facility] Comment on above: Performed By: #### P T #### [facility] [address] [place] [address] Potassium reflex Mg 4.1 mEq/L Normal 3.4-4.9 [facility] Comment on above: Performed By: #### P T #### [facility] [address] [place] [address] Sodium [Moles/Vol] 135 mmol/L Normal 135-144 [facility] Comment on above: Performed By: #### P T #### [facility] [address] [place] [address] Urea nitrogen [Mass/Vol] 6 mg/dL Low 8-23 [facility] Comment on above: Performed By: #### P T #### [facility] [address] [place] [address] CBC With Platelet and Differ entialon 11-14-2018 Basophils (Bld) [#/Vol] 0.1 10*3/uL Normal 0.0-0.2 [facility] Comment on above: Performed By: #### P T #### [facility] [address] [place] [address] Basophils/100 WBC (Bld) 0.5 % Normal [facility] Comment on above: Performed By: #### P T #### [facility] [address] [place] [address] Eosinophils (Bld) [#/Vol] 0.1 10*3/uL Normal 0.0-0.7 [facility] Comment on above: Performed By: #### P T #### [facility] [address] [place] [address] Eosinophils/100 WBC (Bld) 0.8 % Normal [facility] Comment on above: Performed By: #### P T #### [facility] [address] [place] [address] Erythrocyte distribution width (RBC) [Ratio] 14.1 % Normal 11.5-14.5 [facility] Comment on above: Performed By: #### P T #### [facility] [address] [place] [address] Hematocrit (Bld) [Volume fraction] 35.4 % Low 37.0-47.0 [facility] Comment on above: Performed By: #### P T #### [facility] [address] [place] [address] Hemoglobin (Bld) [Mass/Vol] 11.7 g/dL Low 12.0-16.0 [facility] Comment on above: Performed By: #### P T #### [facility] [address] [place] [address] Lymphocytes (Bld) [#/Vol] 2.7 10*3/uL Normal 1.0-4.8 [facility] Comment on above: Performed By: #### P T #### [facility] [address] [place] [address] Lymphocytes/100 WBC (Bld) 15.7 % Normal [facility] Comment on above: Performed By: #### P T #### [facility] [address] [place] [address] MCH (RBC) [Entitic mass] 29.7 pg Normal 27.0-31.3 [facility] Comment on above: Performed By: #### P T #### [facility] [address] [place] [address] MCHC (RBC) [Mass/Vol] 33.1 % Normal 33.0-37.0 [facility] Comment on above: Performed By: #### P T #### [facility] [address] [place] [address] MCV (RBC) [Entitic vol] 89.6 fL Normal 82.0-100.0 M [facility] Comment on above: Performed By: #### P T #### [facility] [address] [place] [address] Monocytes (Bld) [#/Vol] 1.4 10*3/uL Critically high 0.2-0. 8 [facility] Comment on above: Performed By: #### P T #### [facility] [address] [place] [address] Monocytes/100 WBC (Bld) 7.9 % Normal M [facility] Comment on above: Performed By: #### P T #### [facility] [address] [place] [address] Neutrophils (Bld) [#/Vol] 12.8 10*3/uL Critically high 1.4-6.5 [facility] Comment on above: Performed By: #### P T #### [facility] [address] [place] [address] Neutrophils/100 WBC (Bld) 75.1 % Normal [facility] Comment on above: Performed By: #### P T #### [facility] [address] [place] [address] Platelets (Bld) [#/Vol] 345 10*3/uL Normal 130-400 [facility] Comment on above: Performed By: #### P T #### [facility] [address] [place] [address] RBC (Bld) [#/Vol] 3.95 10*6/uL Low 4.20-5.40 [facility] Comment on above: Performed By: #### P T #### [facility] [address] [place] [address] WBC (Bld) [#/Vol] 17.0 10*3/uL Critically high 4.8-10.8 [facility] Comment on above: Performed By: #### P T #### [facility] [address] [place] [address] POCT Glucoseon 11-14-2018 Glucose [Mass/Vol] 116 mg/dL Critically high 60-115 [facility] Comment on above: Performed By: #### P T #### [facility] [address] [place] [address] POC Performed on ACCU-CHEK Normal [facility] Comment on above: Performed By: #### P T #### [facility] [address] [place] [address] XR LUMBAR SPINE (2-3 VIEWS)o n 11-14-2018 [...] Anion gap [Moles/Vol] 13 mmol/L Normal 9-15 [facility] Comment on above: Performed By: #### P T #### [facility] [address] [place] [address] Calcium [Mass/Vol] 9.0 mg/dL Normal 8.5-9.9 [facility] Comment on above: Performed By: #### P T #### [facility] [address] [place] [address] Chloride [Moles/Vol] 101 mmol/L Normal 95-107 [facility] Comment on above: Performed By: #### P T #### [facility] [address] [place] [address] CO2 [Moles/Vol] 24 mmol/L Normal 20-31 [facility] Comment on above: Performed By: #### P T #### [facility] [address] [place] [address] Creatinine [Mass/Vol] 0.62 mg/dL Normal 0.50-0.90 [facility] Comment on above: Performed By: #### P T #### [facility] [address] [place] [address] GFR/1.73 sq M predicted among blacks MDRD (S/P/Bld) [Vol rate/Area] mL/min/{1.73_m2} Normal >60 [facility] Comment on above: Result Comment: >60 mL/min/1.73m2 EGFR, calc. for ages 18 and older using the MDRD formula (not corrected for weight), is valid for stable renal function. Performed By: #### P T #### [facility] [address] [place] [address] GFR/1.73 sq M.predicted MDRD (S/P/Bld) [Vol rate/Area] mL/min/{1.73_m2} Normal >60 [facility] Comment on above: Result Comment: >60 mL/min/1.73m2 EGFR, calc. for ages 18 and older using the MDRD formula (not corrected for weight), is valid for stable renal function. Performed By: #### P T #### [facility] [address] [place] [address] Glucose [Mass/Vol] 136 mg/dL Critically high 70-99 M [facility] Comment on above: Performed By: #### P T #### [facility] [address] [place] [address] Potassium reflex Mg 3.6 mEq/L Normal 3.4-4.9 [facility] Comment on above: Performed By: #### P T #### [facility] [address] [place] [address] Sodium [Moles/Vol] 138 mmol/L Normal 135-144 [facility] Comment on above: Performed By: #### P T #### [facility] [address] [place] [address] Urea nitrogen [Mass/Vol] 7 mg/dL Low 8-23 [facility] Comment on above: Performed By: #### P T #### [facility] [address] [place] [address] CBC With Platelet No Differe ntialon 11-13-2018 Erythrocyte distribution width (RBC) [Ratio] 14.2 % Normal 11.5-14.5 [facility] Comment on above: Performed By: #### P T #### [facility] [address] [place] [address] Hematocrit (Bld) [Volume fraction] 40.3 % Normal 37.0-47.0 [facility] Comment on above: Performed By: #### P T #### [facility] [address] [place] [address] Hemoglobin (Bld) [Mass/Vol] 13.1 g/dL Normal 12.0-16.0 [facility] Comment on above: Performed By: #### P T #### [facility] [address] [place] [address] MCH (RBC) [Entitic mass] 29.1 pg Normal 27.0-31.3 [facility] Comment on above: Performed By: #### P T #### [facility] [address] [place] [address] MCHC (RBC) [Mass/Vol] 32.4 % Low 33.0-37.0 [facility] Comment on above: Performed By: #### P T #### [facility] [address] [place] [address] MCV (RBC) [Entitic vol] 89.9 fL Normal 82.0-100.0 M [facility] Comment on above: Performed By: #### P T #### [facility] [address] [place] [address] Platelets (Bld) [#/Vol] 394 10*3/uL Normal 130-400 [facility] Comment on above: Performed By: #### P T #### [facility] [address] [place] [address] RBC (Bld) [#/Vol] 4.48 10*6/uL Normal 4.20-5.40 [facility] Comment on above: Performed By: #### P T #### [facility] [address] [place] [address] WBC (Bld) [#/Vol] 11.8 10*3/uL Critically high 4.8-10.8 [facility] Comment on above: Performed By: #### P T #### [facility] [address] [place] [id number] Culture, MRSA Screenon 11-13 Culture, MRSA Screen ORDERED BY: BRENNAN HERRON SOURCE: Nares COLLECTED: 11/13/18 09:29 ANTIBIOTICS AT DI.: RECEIVED : 11/13/18 09:29 Culture, MRSA Screen FINAL 11/14/18 08:02 No MRSA isolated Normal [facility] Comment on above: Performed By: #### P T #### [facility] [address] [place] [id number] FLUORO FOR SURGICAL PROCEDUR ESon 11-13-2018 FLUORO [...] Health Surgical Specimenon 11-14-19 19 Surgical Specimen [facility] [address] [place], [place] [address], [place] [id number] FINAL SURGICAL PATHOLOGY REPORT Patient Name: HIRAM MADRID Accession No: [id number] Age Sex: 1935 Location: [facility] [id number] Account No: [id number] Collected: 11/13/2018 Med Rec No: [id number] Received: 11/14/2018 Attend Phys: LENNY CORRAL Completed: [...] two cassettes after brief decalcification. UVALDO/NIKKY CPT: 25645 X1 21021 X1 STANLEY GRAFF M.D. 11/15/2018 Electronically signed out by Page 1 of 1 [facility] Comment on above: Performed By: #### P TT #### [facility] [address] [place] [address] Type and Screen Capture 3 sc rn cellon 11-13-2018 Type and Screen Capture 3 scrn cell PATIENT: MERCY GANDHI LOC: ERICK,ORKAMRONOL,NON BILL# : [id number] : 1935 SEX: F ORDERED BY: GOPAL AMIN ORDERED : 11/13/2018 08:10 COLLECTED: 11/13/2018 09:24 ORDER : [id number] RECEIVED : 11/13/2018 09:24 TEST NAME RESULT UNITS RANGES ABN FL ST ABORH Capture A POS F Antibody 3 Cell Scrn Captu NEG F Normal [facility] Comment on above: Performed By: #### T S3C #### [facility] [address] [place] [address] XR SPINE ENTIRE (2-3 VIEWS)o n 11-13-2018 [...] SIGNS OF UNDERLYING PATHOLOGY OR RECENT INJURY. [facility]- [place], [place] Joseph, Chpo Incoming Radiant Results From Home Comfort Zones/CodeNgo - 11/05/2018 3:07 PM EDT EXAMINATION: MRI [...] SIGNS OF UNDERLYING PATHOLOGY OR RECENT INJURY. [facility], [place] MRI LUMBAR SPINE W WO CONTRAST EXAMINATION: [...] Normal [facility] Otheron 11-05-2018 Joseph, Chpo Incoming Radiant Results From RVXe/CodeNgo - 11/05/2018 1:21 PM EDT EXAMINATION: XR [...] AND POSTOPERATIVE FINDINGS, WITHOUT ACUTE SUPERIMPOSED ABNORMALITY. [place] EXAMINATION: XR LUMB AR SPINE (MIN [...] AND POSTOPERATIVE FINDINGS, WITHOUT ACUTE SUPERIMPOSED ABNORMALITY. [place] XR CHEST (2 VW)on 11-05-2018 XR [...] 11-04-2018 aPTT Coag (Bld) [Time] 27.9 s [facility]- [place], [place] Comment on above: Effective 09/06/2018: Please note methodology and/or reference ranges have changed. aPTT - Heparin Therapeutic Range: 74.0 - 106 seconds C-Reactive Proteinon 11-04- 019 CRP [Mass/Vol] 1.3 mg/L Normal 0.0-5.0 [facility] Comment on above: Performed By: #### C RP #### [facility] [address] [place] [address] CRP [Mass/Vol] 1.3 mg/L 0 - 5 mg/L [place] CBC Auto Differentialon 10-21 Basophils (Bld) [#/Vol] 0.1 10*3/uL 0 - 0.2 K/uL [place] Basophils/100 WBC (Bld) 1.1 % [place] Eosinophils (Bld) [#/Vol] 0.2 10*3/uL 0 - 0.7 K/uL [place] Eosinophils/100 WBC (Bld) 1.3 % [place] Erythrocyte distribution width (RBC) [Ratio] 13.9 % 11.5 - 14.5 % [place] Hematocrit (Bld) [Volume fraction] 41.3 % 37 - 47 % [place] Hemoglobin (Bld) [Mass/Vol] 14.3 g/dL 12 - 16 g/dL [place] Interpretation and review of laboratory results Abnormal [place] Lymphocytes (Bld) [#/Vol] 3.5 10*3/uL 1 - 4.8 K/uL [place] Lymphocytes/100 WBC (Bld) 28.2 % [place] MCH (RBC) [Entitic mass] 30.5 pg 27 - 31.3 pg [place] MCHC (RBC) [Mass/Vol] 34.6 % 33 - 37 % [place] MCV (RBC) [Entitic vol] 88.0 fL 82 - 100 fL [place] Monocytes (Bld) [#/Vol] 0.8 10*3/uL 0.2 - 0.8 K/uL [place] Monocytes/100 WBC (Bld) 6.8 % [place] Neutrophils Absolute 7.7 K/uL High 1.4 - 6 .5 K/uL [place] Neutrophils/100 WBC (Bld) 62.6 % [place] Platelets (Bld) [#/Vol] 435 10*3/uL High 130 - 400 K/uL [place] RBC (Bld) [#/Vol] 4.69 10*6/uL [place] WBC (Bld) [#/Vol] 12.4 10*3/uL High 4.8 - 10.8 K/uL [place] CBC With Platelet and Differ entialon 11-04-2018 Basophils (Bld) [#/Vol] 0.1 10*3/uL Normal 0.0-0.2 [facility] Comment on above: Performed By: #### C BCWD #### [facility] [address] [place] [address] Basophils/100 WBC (Bld) 1.1 % Normal [facility] Comment on above: Performed By: #### C BCWD #### [facility] [address] [place] [address] Eosinophils (Bld) [#/Vol] 0.2 10*3/uL Normal 0.0-0.7 [facility] Comment on above: Performed By: #### C BCWD #### [facility] [address] [place] [address] Eosinophils/100 WBC (Bld) 1.3 % Normal [facility] Comment on above: Performed By: #### C BCWD #### [facility] [address] [place] [address] Erythrocyte distribution width (RBC) [Ratio] 13.9 % Normal 11.5-14.5 [facility] Comment on above: Performed By: #### C BCWD #### [facility] [address] [place] [address] Hematocrit (Bld) [Volume fraction] 41.3 % Normal 37.0-47.0 [facility] Comment on above: Performed By: #### C BCWD #### [facility] [address] [place] [address] Hemoglobin (Bld) [Mass/Vol] 14.3 g/dL Normal 12.0-16.0 [facility] Comment on above: Performed By: #### C BCWD #### [facility] [address] [place] [address] Lymphocytes (Bld) [#/Vol] 3.5 10*3/uL Normal 1.0-4.8 [facility] Comment on above: Performed By: #### C BCWD #### [facility] [address] [place] [address] Lymphocytes/100 WBC (Bld) 28.2 % Normal [facility] Comment on above: Performed By: #### C BCWD #### [facility] [address] [place] [address] MCH (RBC) [Entitic mass] 30.5 pg Normal 27.0-31.3 [facility] Comment on above: Performed By: #### C BCWD #### [facility] [address] [place] [address] MCHC (RBC) [Mass/Vol] 34.6 % Normal 33.0-37.0 [facility] Comment on above: Performed By: #### C BCWD #### [facility] [address] [place] [address] MCV (RBC) [Entitic vol] 88.0 fL Normal 82.0-100.0 [facility] Comment on above: Performed By: #### C BCWD #### [facility] [address] [place] [address] Monocytes (Bld) [#/Vol] 0.8 10*3/uL Normal 0.2-0.8 [facility] Comment on above: Performed By: #### C BCWD #### [facility] [address] [place] [address] Monocytes/100 WBC (Bld) 6.8 % Normal M [facility] Comment on above: Performed By: #### C BCWD #### [facility] [address] [place] [address] Neutrophils (Bld) [#/Vol] 7.7 10*3/uL Critically high 1.4-6.5 [facility] Comment on above: Performed By: #### C BCWD #### [facility] [address] [place] [address] Neutrophils/100 WBC (Bld) 62.6 % Normal [facility] Comment on above: Performed By: #### C BCWD #### [facility] [address] [place] [address] Platelets (Bld) [#/Vol] 435 10*3/uL Critically high 130-40 0 [facility] Comment on above: Performed By: #### C BCWD #### [facility] [address] [place] [address] RBC (Bld) [#/Vol] 4.69 10*6/uL Normal 4.20-5.40 [facility] Comment on above: Performed By: #### C BCWD #### [facility] [address] [place] [address] WBC (Bld) [#/Vol] 12.4 10*3/uL Critically high 4.8-10.8 [facility] Comment on above: Performed By: #### C BCWD #### [facility] [address] [place] [address] Comprehensive Metabolic Pane bebeto 11-04-2018 Anion gap [Moles/Vol] 14 mmol/L Normal 9-15 [facility] Comment on above: Order Comment: CALL Graf LCED tel. [phone], Potassium results called to and read back by onofre Millan RN, 11/04/2018 16:24, by WEBAM Performed By: #### C MP #### [facility] [address] [place] [address] Bilirubin [Mass/Vol] 0.4 mg/dL Normal 0.2-0.7 [facility] Comment on above: Order Comment: CALL Graf LCED tel. [phone], Potassium results called to and read back by onofre Millan RN, 11/04/2018 16:24, by WEBAM Performed By: #### C MP #### [facility] [address] [place] [address] GFR/1.73 sq M predicted among blacks MDRD (S/P/Bld) [Vol rate/Area] mL/min/{1.73_m2} Normal >60 [facility] Comment on above: Order Comment: CALL Graf LCED tel. [phone], Potassium results called to and read back by onofre Millan RN, 11/04/2018 16:24, by WEBAM Result Comment: >60 mL/min/1.73m2 EGFR, calc. for ages 18 and older using the MDRD formula (not corrected for weight), is valid for stable renal function. Performed By: #### C MP #### [facility] [address] [place] [address] GFR/1.73 sq M.predicted MDRD (S/P/Bld) [Vol rate/Area] mL/min/{1.73_m2} Normal >60 [facility] Comment on above: Order Comment: CALL Graf LCED tel. [phone], Potassium results called to and read back by onofre Millan RN, 11/04/2018 16:24, by WEBAM Result Comment: >60 mL/min/1.73m2 EGFR, calc. for ages 18 and older using the MDRD formula (not corrected for weight), is valid for stable renal function. Performed By: #### C MP #### [facility] [address] [place] [address] Albumin [Mass/Vol] 4.5 g/dL Normal 3.5-4.6 [facility], [place] Comment on above: Order Comment: CALL Graf LCED tel. [phone], Potassium results called to and read back by onofre Millan RN, 11/04/2018 16:24, by WEBAM Performed By: #### C MP #### [facility] [address] [place] [address] ALP [Catalytic activity/Vol] 76 U/L Normal 40-130 [facility], [place] Comment on above: Order Comment: CALL Graf LCED tel. [phone], Potassium results called to and read back by onofre Millan RN, 11/04/2018 16:24, by WEBAM Performed By: #### C MP #### [facility] [address] [facility] [place] [address] ALT [Catalytic activity/Vol] 15 U/L Normal 0-33 [facility], [place] Comment on above: Order Comment: CALL Graf LCED tel. [phone], Potassium results called to and read back by onofre Millan RN, 11/04/2018 16:24, by WEBAM Performed By: #### C MP #### [facility] [address] [place] [address] AST [Catalytic activity/Vol] 20 U/L Normal 0-35 [facility], [place] Comment on above: Order Comment: CALL Graf LCED tel. [phone], Potassium results called to and read back by onofre Millan RN, 11/04/2018 16:24, by WEBAM Performed By: #### C MP #### [facility] [address] [place] [address] Calcium [Mass/Vol] 9.9 mg/dL Normal 8.5-9.9 [facility], [place] Comment on above: Order Comment: CALL Graf LCED tel. [phone], Potassium results called to and read back by onofre Millan RN, 11/04/2018 16:24, by WEBAM Performed By: #### C MP #### [facility] [address] [place] [address] Chloride [Moles/Vol] 96 mmol/L Normal 95-107 [facility], [place] Comment on above: Order Comment: CALL Graf LCED tel. [phone], Potassium results called to and read back by onofre Millan RN, 11/04/2018 16:24, by WEBAM Performed By: #### C MP #### [facility] [address] [facility] [place] [address] CO2 [Moles/Vol] 24 mmol/L Normal 20-31 [place], [place] Comment on above: Order Comment: CALL Graf LCED tel. [phone], Potassium results called to and read back by onofre Millan RN, 11/04/2018 16:24, by WEBAM Performed By: #### C MP #### [facility] [address] [place] [address] Creatinine [Mass/Vol] 0.67 mg/dL Normal 0.50-0.90 [place], [place] Comment on above: Order Comment: CALL Graf LCED tel. [phone], Potassium results called to and read back by onofre Millan RN, 11/04/2018 16:24, by WEBAM Performed By: #### C MP #### [facility] [address] [place] [address] Globulin (S) [Mass/Vol] 2.8 g/dL Normal 2.3-3.5 [facility] [place], [place] Comment on above: Order Comment: CALL Graf LCED tel. [phone], Potassium results called to and read back by onofre Millan RN, 11/04/2018 16:24, by WEBAM Performed By: #### C MP #### [facility] [address] [place] [address] Glucose [Mass/Vol] 109 mg/dL Critically high 70-99 [place], [place] Comment on above: Order Comment: CALL Graf LCED tel. [phone], Potassium results called to and read back by onofre Millan RN, 11/04/2018 16:24, by WEBAM Performed By: #### C MP #### [facility] [address] [place] [address] Potassium [Moles/Vol] 3.0 mmol/L Critically low 3.4-4.9 [place] Comment on above: Order Comment: CALL Graf LCED tel. [phone], Potassium results called to and read back by onofre Millan RN, 11/04/2018 16:24, by WEBAM Performed By: #### C MP #### [facility] [address] [place] [address] Protein [Mass/Vol] 7.3 g/dL Normal 6.3-8.0 [place] Comment on above: Order Comment: CALL Graf LCED tel. [phone], Potassium results called to and read back by onofre Millan RN, 11/04/2018 16:24, by WEBAM Performed By: #### C MP #### [facility] [address] [place] [address] Sodium [Moles/Vol] 134 mmol/L Low 135-144 [place] Comment on above: Order Comment: CALL Graf ED tel. [phone], Potassium results called to and read back by onofre Millan RN, 11/04/2018 16:24, by WEBAM Performed By: #### C MP #### [facility] [address] [place] [address] Urea nitrogen [Mass/Vol] 8 mg/dL Normal 8-23 [place] Comment on above: Order Comment: CALL Graf ED tel. [phone], Potassium results called to and read back by onofre Millan RN, 11/04/2018 16:24, by WEBAM Performed By: #### C MP #### [facility] [address] [facility] [address] Anion gap [Moles/Vol] 14 mmol/L [place], [place] Bilirubin Ql (U) 0.4 mg/dL 0.2 - 0.7 mg/dL [place], [place] GFR >60.0 >60 [place], [place] Comment on above: >60 mL/min/1.73m2 EG FR, calc. for ages 18 and older using the MDRD formula (not corrected for weight), is valid for stable renal function. GFR Non- >60.0 >60 [place] Comment on above: >60 mL/min/1.73m2 EG FR, calc. for ages 18 and older using the MDRD formula (not corrected for weight), is valid for stable renal function. Interpretation and review of laboratory results Abnormal [place] Potassium [Moles/Vol] CALL Graf LCED tel . [phone], Potassium results called to and read back by onofre Millan RN, 11/04/2018 16:24, by TAMMY [place] Partial Thromboplastin Timeo n 11-04-2018 aPTT Coag (Bld) [Time] 27.9 s Normal 24.4-36.8 [facility] Comment on above: Result Comment: Effe ctive 09/06/2018: Please note methodology and/or reference ranges have changed. aPTT - Heparin Therapeutic Range: 74.0 - 106 seconds Performed By: #### P TT #### [facility] [address] [facility] [address] Prothrombin Timeon 9 INR Coag (PPP) [Relative time] 0.9 {INR} Normal [facility] Comment on above: Result Comment: Warf camden Therapy INR Therapeutic: 2.0-3.0 With Mechanical Valve: >2.5 Low-intensity Therapeutic Range: 1.5-2.0 Mod-intensity Therapeutic Range: 2.0-3.0 High-intensity Therapeutic Range: 2.5-3.5 HIgh-intensity Therapeutic Range: 3.0-4.0 Common Critical/Alarm Value: 5.0 Common Upper Limit Reported: 10.0 Effective 08/30/2018: Please note methodology and/or reference ranges have changed. Performed By: #### P T #### [facility] [address] [facility] [address] PT Coag (PPP) [Time] 12.1 s Low 12.3-14.9 [facility] Comment on above: Result Comment: Effe ctive 08/30/18 Please note methodology and/or reference ranges have changed. Performed By: #### P T #### [facility] [address] [place] [address] Protime-INRon 11-04-2018 INR Coag (PPP) [Relative time] 0.9 {INR} [place], [place] Comment on above: Warfarin Therapy IN R Therapeutic: 2.0-3.0 With Mechanical Valve: >2.5 Low-intensity Therapeutic Range: 1.5-2.0 Mod-intensity Therapeutic Range: 2.0-3.0 High-intensity Therapeutic Range: 2.5-3.5 HIgh-intensity Therapeutic Range: 3.0-4.0 Common Critical/Alarm Value: 5.0 Common Upper Limit Reported: 10.0 Effective 08/30/2018: Please note methodology and/or reference ranges have changed. Interpretation and review of laboratory results Abnormal [place] PT Coag (PPP) [Time] 12.1 s Low [place], [place] Comment on above: Effective 08/30/18 Please note methodology and/or reference ranges have changed. Sedimentation Rateon 019 Sedimentation Rate 12 mm Normal 0-30 [facility] Comment on above: Performed By: #### E SR #### [facility] [address] [place] [address] Sed Rate 12 mm 0 - 30 mm [place], [place] Vital Signs Date Time Vital Sign Value Performing Clinician Ivonne ledesma 12-22-2022 11:40-0400 Blood Pressure Location MIKAYLA WEISS [facility] 12-22-2022 11:40-0400 Diastolic blood pressure 84 mm[Hg] MIKAYLA WEISS [facility] 12-22-2022 11:40-0400 Systolic blood pressure 124 mm[Hg] MIKAYLA WEISS [facility] 08-06-2022 00:10-0400 Body temperature 97.3 [degF] MD Addy Daniels Work Phone: [facility] 08-06-2022 00:10-0400 Diastolic blood pressure 74 mm[Hg] MD Addy Daniels Work Phone: [facility] 08-06-2022 00:10-0400 Heart rate 80 /min MD Addy Daniels Work Phone: [facility] 08-06-2022 00:10-0400 Respiratory rate 18 /min MD Addy Daniels Work Phone: [facility] 08-06-2022 00:10-0400 SaO2% (BldA) [Mass fraction] 96 % MD Addy Daniels Work Phone: [facility] 08-06-2022 00:10-0400 Systolic blood pressure 177 mm[Hg] MD Addy Daniels Work Phone: [facility] 08-05-2022 19:51-0400 Body height 154.94 cm MD Addy Daniels Work Phone: [facility] 08-05-2022 19:51-0400 Body weight 67.6 kg MD Addy Daniels Work Phone: [facility] 11-20-2018 07:02-0400 Body Temperature 97 [degF] [facility] [place] 11-20-2018 07:02-0400 BP Diastolic 61 mm[Hg] [facility] [place] 11-20-2018 07:02-0400 BP Systolic 153 mm[Hg] [facility] [place] 11-20-2018 07:02-0400 Pulse (Heart Rate) 75 /min [facility] [place] 11-20-2018 07:02-0400 Pulse Oximetry 97 % [facility] [place] 11-20-2018 07:02-0400 Respiratory Rate 17 /min [facility] [place] 11-17-2018 05:54-0400 BMI (Body Mass Index) 27.62 kg/m2 [facility] [place] 11-17-2018 05:54-0400 Body weight 66.3 kg Mary Vega [facility], [place] 11-15-2018 15:58-0400 Height 154.9 cm Mary Vega [facility], [place] 11-05-2018 07:30-0400 BP Diastolic 57 mm[Hg] [facility] , [place] 11-05-2018 07:30-0400 BP Systolic 135 mm[Hg] [facility] , [place] 11-05-2018 07:30-0400 Pulse (Heart Rate) 70 /min [facility], [place] 11-05-2018 07:30-0400 Pulse Oximetry 97 % [facility] , [place] 11-04-2018 20:06-0400 Body Temperature 98.4 [degF] [facility], [place] 11-04-2018 20:06-0400 Respiratory Rate 16 /min [facility], [place] 11-04-2018 14:56-0400 BMI (Body Mass Index) 27.4 kg/m2 [facility], [place] 11-04-2018 14:56-0400 Body weight 65.77 kg [facility] , [place] 11-04-2018 14:56-0400 Height 154.9 cm [facility] , [place] Encounters Encounter Date Encounter Type Care Provider Facility Start: 06-29-2023 ambulatory MIKAYLA Mora ty:ERIN Hoang Start: 01-11-2023 End: 01-11-2023 ambulatory [facility] Start: 12-22-2022 End: 12-23-2022 ambulatory MIKAYLA WEISS Facility:ERIN Hoang Start: 12-22-2022 End: 12-22-2022 Patient encounter procedure MIKAYLA WEISS [facility] Natalya Start: 10-14-2022 End: 10-14-2022 ambulatory [facility] Start: 09-06-2022 End: 09-07-2022 ambulatory Raymond HARRISON Facility:ERIN Hoang Start: 08-11-2022 End: 08-12-2022 ambulatory Raymond HARRISON Facility:CD:[id number] Start: 08-10-2022 End: 08-11-2022 ambulatory Raymond HARRISON Facility:[facility] Start: 08-09-2022 End: 08-09-2022 ambulatory Addy Daniels Facility:[facility] Start: 08-09-2022 ambulatory MIKAYLA WEISS Facility :[facility] Start: 08-05-2022 End: 08-06-2022 Emergency department patient visit Camacho Saavedray Facility:[facility] Start: 08-05-2022 End: 08-06-2022 Emergency department patient visit MD Addy Daniels Work Phone: [facility] Work Phone: Start: 06-13-2022 End: 06-14-[address] ADDY DANIELS . Facility:[facility] Start: 05-19-[address] ADDY DANIELS . Facili ty:[facility] Start: 04-18-2022 End: 04-19-[address] VALERIE DARDEN Facility:[facility] Start: 04-04-2022 End: 04-04-2022 ambulatory [facility] Start: 01-30-[address] ADDY DANIELS . Facili ty:[facility] Start: 01-04-2022 End: 01-05-[address] ADDY DANIELS . Facility:[facility] Start: 12-26-2021 End: 12-29-2021 Evaluation and management of inpatient DR ADDY DANIELS . Facility:[facility] Start: 12-02-2021 End: 01-04-2022 Pre-admission assessment Alie Santos [facility] Start: 11-30-2021 End: 12-01-[address] JESUS BRUNO Facility:[facility] Start: 11-09-2021 End: 11-10-[address] CALISTA ACEVES Facility:[facility] Start: 08-06-2021 End: 08-07-[address] VALERIE DARDEN Facility:[facility] Start: 07-28-2021 End: 07-29-[address] CALISTA ACEVES Facility:[facility] Start: 06-22-2021 End: 06-22-2021 Patient encounter procedure VALERIE DARDEN [facility] Start: 11-15-2018 End: 11-20-2018 Evaluation and management of inpatient [facility] G[facility] Start: 11-15-2018 End: 11-20-2018 Evaluation and management of inpatient Mary Vega Work Phone: [facility] Comment on above: Spinal stenosis of l umbosacral region (Primary Dx); Impaired mobility; Vasovagal syncope Start: 11-13-2018 End: 11-15-2018 Evaluation and management of inpatient LENNY CORRAL [facility] Start: 11-13-2018 End: 11-15-2018 Patient encounter procedure LENNY Kang [facility] Start: 11-04-2018 End: 11-05-2018 Patient encounter procedure CALISTA KETAN [facility] Start: 11-04-2018 End: 11-05-2018 Emergency department patient visit Lenny Corral Work Phone: [facility] Comment on above: Lumbar radiculopathy (Primary Dx); Intractable low back pain Start: 04-19-2018 End: 04-20-2018 Patient encounter procedure DEFAULT PHYSICIAN Facility:[facility] Procedures Date Procedure Procedure Detail Performing Clinician Start: 11-20-2018 INCENTIVE SPIROMETRY RT CALISTA ACEVES Start: 11-20-2018 IP CONSULT TO HOME C ARE NEEDS CALISTA ACEVES Start: 11-20-2018 INCENTIVE SPIROMETRY RT CALISTA ACEVES Start: 11-20-2018 INCENTIVE SPIROMETRY RT CALISTA ACEVES Start: 11-20-2018 Blood count complete auto&auto difrntl wbc CALISTA ACEVES Start: 11-20-2018 AMB EXTERNAL REFERRA L TO PHYSICAL THERAPY CAILSTA ACEVES Start: 11-20-2018 INCENTIVE SPIROMETRY RT CALISTA [...] 11-19-2018 C-reactive protein h igh sensitivity CALISTA EKTAN Start: 11-19-2018 Sedimentation rate r bc automated [...] ICAL VTE PROPHYLAXIS CALISTA ACEVES Start: 11-15-2018 RN INTERN EVAL AND TREAT CHRIS PRESLEY KETAN Start: [...] scan extracra nial art compl bi study [employer] Work Phone: Start: 11-15-2018 Culture bacterial quanttative colony count urine Mary Gary Work Phone: Start: 11-15-2018 Urinalysis microscopic only Mary Gary Work Phone: Start: 11-15-2018 Blood count complete auto&auto difrntl wbc CALISTA ACEVES Start: 11-15-2018 Culture bacterial bl ood aerobic w/id isolates CALISTA ACEVES Start: 11-15-2018 Microscopic examinat ion of blood, culture CALISTA ACEVES Comment on above: Performed By: #### P TT #### [facility] [address] [place] [address] Start: 11-15-2018 Urnls dip stick/tabl et [...] CT Abdomen and Pelvi s WO contrast [facility] Start: 08-05-2022 CT of abdomen and pe lvis without contrast CT abdomen pelvis wo con [facility] Start: 11-19-2019 Creatinine monitoring Creatinine mon [place], [place] Start: 11-19-2019 Potassium monitoring Potassium monit [place], [place] Start: 11-05-2019 Creatinine monitoring Creatinine mon [place], [place] Start: 11-05-2019 Potassium monitoring Potassium monit [place], [place] Start: 12-04-2018 End: 12-04-2018 Office Visit 12/04/2018 Office Visit Neurosurgery Lenny Corral MD [address] [facility], [address] [address] [employer] Start: 11-30-2018 End: 11-30-2018 Office Visit 11/30/2018 Office Visit Neurosurgery Lenny Corral MD [address] [facility], [address] [address] [employer] Start: 11-23-2018 End: 11-23-2018 Office Visit 11/23/2018 Office Visit Neurosurgery Lenny Corral MD [address] [facility], [address] [address] [employer] Start: 11-13-2018 Annual Wellness Visi t (AWV) Annual Wellness Visit (AWV) [place] Start: 10-21-2018 Influenza vaccination Flu vaccine (# 1) [place], [place] Start: 2001 DEXA (modify frequen cy per FRAX score) DEXA (modify frequency per FRAX score) [place] Start: 2001 Pneumococcal 65+ yea rs Vaccine (1 of 2 - PCV13) Pneumococcal 65+ years Vaccine (1 of 2 - PCV13) [place] Start: 1986 Shingles Vaccine (1 of 2) Shingles Vaccine (1 of 2) [place] Start: 11-13-1955 DTaP/Tdap/Td vaccine (1 - Tdap) DTaP/Tdap/Td vaccine (1 - Tdap) [place], [place] Start: 1946 Lipid screen Lipid screen [place], [place] Culture Blood #1 Culture Blood # 1 Microbiology STAT 11/15/2018 4:37 PM EDT [place], [place] Culture Blood #2 Culture Blood # 2 Microbiology STAT 11/15/2018 4:37 PM EDT [place] End: 11-05-2018 EKG 12 Lead EKG 12 Lead ECG Routine One Time for 1 Occurrences starting 11/05/2018 until 11/05/2018 [place] Comment on above: One Time for 1 Occur rences starting 11/05/2018 until 11/05/2018 Incentive spirometry Incentive s pirometry Respiratory Care Routine Every 2hr while awake until discontinued starting 11/15/2018 [place] Comment on above: Every 2hr while awak e until discontinued starting 11/15/2018 Initiate Oxygen Ther apy Protocol Initiate Oxygen Therapy Protocol Respiratory Care Routine Daily until discontinued starting 11/15/2018 [place] Comment on above: Daily until disconti nued starting 11/15/2018 Nonrebreather mask oxygen Nonrebreather mask oxygen Respiratory Care Routine As directed - RT (PRN) until discontinued starting 11/05/2018 [place] Comment on above: As directed - RT (TN N) until discontinued starting 11/05/2018 Patient Education Kidney Stones (DC) [facility] Work Phone: Patient referral [facility] Work Phone: End: 11-15-2018 Speech and language therapy regime Speech language pathology evaluation RN INTERN Routine One Time for 1 Occurrences starting 11/15/2018 until 11/15/2018 [place] Comment on above: One Time for 1 Occur rences starting 11/15/2018 until 11/15/2018 End: 11-04-2018 Urine Reflex to Culture Urine Reflex to Culture Lab STAT One Time for 1 Occurrences starting 11/04/2018 until 11/04/2018 [place] Comment on above: One Time for 1 Occur rences starting 11/04/2018 until 11/04/2018 Immunizations Immunization Date Immunization Notes Care Provider Laxmi romero 12-20-2021 influenza virus vaccine, unspecified formulation MIKAYLA ABDULLAHI [facility] 12-21-2020 influenza virus vaccine, unspecified formulation MIKAYLA ABDULLAHI [facility] 01-09-2019 influenza virus vaccine, unspecified formulation MIKAYLA ABDULLAHI [facility] 11-29-2017 influenza virus vaccine, unspecified formulation MIKAYLA ABDULLAHI [facility] 01-02-2017 influenza virus vaccine, unspecified formulation MIKAYLA ABDULLAHI [facility] 12-06-2016 influenza virus vaccine, unspecified formulation MIKAYLA ABDULLAHI [facility] 12-11-2014 influenza virus vaccine, unspecified formulation MIKAYLA ABDULLAHI [facility] Payers Date Payer Category Payer Self-pay [id number] 2021 Unknown [id number] 2018 Medicare MEDICARE MEDICAR E PART A AND B xxxxxxxxxxx 2018-Present [phone] [place] [address] xxxxxxxxxxx [id number] 2014 Medicare [id number] 2014 Medicare MEDICARE MEDICAR E PART A AND B xxxxxxxxxx 2014-Present [phone] [place] [address] xxxxxxxxxx [id number] .[id number] 2014 Unknown [id number] 2014 Unknown 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 [address] xxxxxxxxxxxx 2014-Present [phone] [address] [place] [address] xxxxxxxxxxxx [id number] .[id number] 1959 Medicare [id number] 1959 Self-pay [id number] 1959 Unknown [id number] 1936 Unknown [id number] 2.16.840.1.532450.3.579.2.647 1936 Unknown [id number] 2.16.840.1.508879.3.579.2.182 1936 Unknown [id number] 2.16.840.1.722760.3.579.2.182 1936 Unknown [id number] 2.16.840.1.767899.3.579.2.182 1936 Unknown [id number] 2.16.840.1.916017.3.579.2.182 1936 Unknown [id number] 2.16.840.1.977136.3.579.2.593 1936 Unknown [id number] 2.16.840.1.243797.3.579.2.593 1936 Unknown [id number] 2.16.840.1.742981.3.579.2.593 1936 Unknown [id number] 2.16.840.1.192042.3.579.2.593 1936 Unknown [id number] 2.16.840.1.431370.3.579.2.593 1936 Unknown [id number] 2.16.840.1.848858.3.579.2.593 1936 Unknown [id number] 2.16.840.1.982020.3.579.2.593 1936 Unknown [id number] 2.16.840.1.654661.3.579.2.593 1936 Unknown [id number] 2.16.840.1.475957.3.579.2.593 1936 Unknown [id number] 2.16.840.1.567883.3.579.2.593 1936 Unknown [id number] 2.16.840.1.679410.3.579.2.727 1936 Unknown [id number] 2.16.840.1.696180.3.579.2.727 1936 Unknown [id number] 2.16.840.1.755420.3.579.2.727 1936 Unknown [id number] 2.16.840.1.975364.3.579.2.727 1936 Unknown [id number] 2.16.840.1.029090.3.579.2.727 1936 Unknown [id number] 2.16.840.1.317713.3.579.2.727 Unknown Unknown [id number] 2.16.840.1.674041.3.579.2.531 Unknown [id number] 2.16.840.1.901600.3.579.2.531 Social History Date Type Detail Facility Start: 11-04-2018 End: 12-22-2022 Tobacco smoking status NHIS Never smoker [facility] Natalya Start: 11-04-2018 End: 11-19-2018 Alcohol intake Not Currently [place] Sex Assigned At Not on file [place] Tobacco smoking status No Smokin g Status Entered [facility] Start: 1935 Sex Assigned At Female F [facility] Tobacco smoking status Never [facility]u [facility] Medical Equipment Procedure Code Equipment Code Equipment Origin al Text Equipment Identifier Dates Graft Canc Chip 30cc [id number] - [id number] Start: 11-13-2018 Graft Canc Chip [id number] 15cc - [id number] Start: 11-13-2018 Sys Fix Reline 0 x Conn 40 50mm 5.5lp Adj [id number] Start: 11-13-2018 Jose Armando-Graft Infuse Kt Med [id number] Start: 11-13-2018 Impl Spine Cage Kamila Crv [id number] 8deg [id number] Start: 11-13-2018 Impl Spine Cage Kamila Crv [id number] 8deg [id number] Start: 11-13-2018 Screw Polyaxial Reline O 2s 6.0x55mm [id number] Start: 11-13-2018 Screw Lk Reline Opn Tulip 5.5mm [id number] Start: 11-13-2018 Impl Spine Harish Reline-O Lrdtc 5.5x70mm [id number] Start: 11-13-2018 Impl Spine Harish Reline-O 5.5x75mm [id number] Start: 11-13-2018 Functional Status Date Assessment Result Facility 12-22-2022 Functional Status N/A [facility] Clinical Notes 04-04-2022 to 01-11-2023 Note Date & Type Note Facility 01-11-2023 Note Noted 7 beat run of NSVT on 1 week holter monitor, along with SVT, PVCs Recommended to continue coreg 25 mg bid, will place 30 day monitor, and obtain treadmill cardiolite stress test for ischemic evaluation. [facility] 01-11-2023 Note Pt reports that she has had 5 syncopal episodes since this Summer- some while having a BM, and other episodes while just up and walking. [facility] 01-11-2023 Note Will monitor with ro utine echocardiogram annually unless pt has concerning symptoms [facility] 01-11-2023 Note Recommended to gorge nue ASA and pravastatin [facility] 01-11-2023 Note Hypertension is stab le Reviewed B/P log and typically in the mornings her b/p with well controlled 120's/70-80, and in the evenings can be up to 140/80 Continue all meds and will add toprol [facility] 01-11-2023 Note Continue pravastatin [facility] 01-11-2023 Note Will monitor with ro utine echocardiogram annually unless pt has concerning symptoms [facility] 01-11-2023 Note Will monitor with ro utine echocardiogram annually unless pt has concerning symptoms [facility] 01-11-2023 Note Patient here for [...] All other systems reviewed and are negative. [facility] 01-11-2023 Note [facility]TP CARDIOLOGY PROGR [...] called and was evaluated in ED at [facility]. Admits she has had a couple syncopal episodes in the bathroom while having a BM- last one was at [facility]. States she also has had a couple while just up and walking- normal Day to Day activity. Daughter states that pt is usually out for about 1 minute. Of note patient was direct admitted to the [facility] end of August for electrolyte imbalances low sodium, low potassium, and acute anemia. She was evaluated at [facility] in October for ABD pain/ [...] The patient states she [place] in [place] when she felt the need to have [...] was someone in the bathroom in the islam and she have to go back and [...] 3 levothyroxine (Syn (more content not included)... [facility] 12-22-2022 Hospital Discharge instructions Patient [...] transplant. Follow these instructions at home: Take yaiu-mwf-xkotobs and prescription medicines only as told by [...] provider. Document Revised: 05/26/2020 Document Reviewed: 05/26/2020 [employer] Patient Education 2022 [employer]. Follow Up Care 09/06/2022 13:10:43 With:ABDULLAHI NOONAN, MIKAYLA Pereira, URL Address: [address] [place] [address] [phone] When: Unknown Comments:6 mos w/ renal fxn (per PCP) [facility] Natalya 10-25-2022 Note Pt message/ call [...] needs to call for appointment Lesly Alaniz SPRING INSPECTOR Division of Cardiology, [facility]- [phone] Pager- [phone] Email- [email or web address] 10-14-2022 Note Stable and non pitting currently [facility] 10-14-2022 Note Currently stable Pt to call for any recurrent syncope or concerns [facility] 10-14-2022 Note Mild on recent echo No concerning symptoms [facility] 10-14-2022 Note Continue ASA and statin [facility] 10-14-2022 Note Hypertension is unco ntrolled 160/75- admits this is where her b/p is at home Increase coreg to 25 mg bid, continue losartan 100 mg, hydrochlorothiazide 25 mg, and amlodipine 10 mg [facility] 10-14-2022 Note Continue pravastatin [facility] 10-14-2022 Note No concerning sympto ms Will continue to monitor with echocardiogram [facility] 10-14-2022 Note No concerning sympto ms Will continue to monitor with echocardiogram [facility] 10-14-2022 Note Patient here c/o LE edema. Says today they aren't as bad, but she states they're hard and sometimes painful. She has not had lab work since [facility] stay in July 2022. She denies chest pain, lightheadedness, and palpitations. Review of Systems Cardiovascular: Positive for dyspnea on exertion and leg swelling. Hematologic/Lymphatic: Bruises/bleeds easily. All other systems reviewed and are negative. [facility] 10-14-2022 Note UTP CARDIOLOGY PROGR [...] note patient was direct admitted to the [facility] end of August for electrolyte imbalances [...] and non pitting currently RTC 3-6 months [facility] 04-04-2022 Note [facility] Cardiology Clinic Note Chief Complaint: Patient [...] p.o. twice dominic (more content not included)... [facility] Evaluation + Plan note No data available for this section [facility] Evaluation + Plan note Future Appointments Appointment Date:06/29/2023 09:30:00 AM Scheduled Provider:MIKAYLA WEISS PA-C Location:[facility] Appointment Type:URO Office Visit [facility] Evaluation note No assessment inform ation available [facility] Work Phone: Hospital Discharge instructions No data available for this section [facility] Hospital Discharge instructions Additional Instructions Take [...] fevers or chills or intractable nausea vomiting. [facility] Work Phone: Progress note No data available for this section [facility] Summary Purpose Family History No Family History Records FoundNo Family History Records FoundNo Family History Records FoundNo Family History Records Found No data available for this section No Family History Records FoundNo Family History Records Found Advance Directives No Advanced Directives Records FoundDocuments on File Type Date Recorded Patient Lurer Expl anation Advance Directives and Living Will Power of Family Service Center Director Latest Code Status on File Code Status Date Activated Date Inactivated Comments Full Code 11/05/2018 6:34 PM Full Code 11/04/2018 5:08 PM 11/05/2018 6:34 PM Documents on File Type Date Recorded Patient Lurer Expl anation Advance Directives and Livin g Will Advance Directives and Livin g Will 11/06/2018 1:08 AM AD info sheets Power of Family Service Center Director Latest Code Status on File Code Status [...] sent through Care Everywhere. * Back Pain (Ethiopian) documented in this encounter* Discharge Instr - [...] most local grocery stores, pharmacies, and chain [place]. ? If you have any questions about [...] Contact Information Primary Emergency Contact: Andrea Madrid [facility] Mobile Relation: Spouse Secondary Emergency Contact: Liliya Townsend Mobile Relation: Child Party Plan Demonstrator needed? No Past Surgical History: Past Surgical History: Procedure Laterality Date APPENDECTOMY BACK SURGERY CHOLECYSTECTOMY LUMBAR FUSION N/A 11/13/2018 PLIF L 3-4-5 DECOMPRESSION L3, L4 performed by Lenny Corral MD [place] [facility] [place] [facility] Right Immunization History: There is no [...] Dressing Independent Toileting Independent Feeding Independent Supervisor Home Economics Independent Med Delivery whole Wound Care Documentation [...] Video (Video Swallowing Test): {Done Not Done Date:[id number]} Treatments at the Time of Hospital Discharge: Respiratory Treatments: Oxygen Therapy: is not on home oxygen therapy. Ventilator: - No ventilator support Rehab Therapies: Physical Therapy and Occupational Therapy Weight Bearing Status/Restrictions: No weight bearing restirctions Other Medical Equipment (for information only, NOT a DME order): walker Other Treatments: Patient's personal belongings (please select all that are sent with patient): {[facility] Belongings:[id number]} RN SIGNATURE: MANAGEMENT/SOCIAL WORK SECTION Inpatient Status Date: Patient was admitted to Inpatient Acute Rehab 11/15/18 Readmission Risk Assessment Score: Readmission Risk Risk of Unplanned Readmission: 12 Discharging to Facility/ Agency Name: Karan Sosa Address: Fax: Dialysis Facility (if applicable) Name: Address: Dialysis Schedule: Phone: Fax: Double Corner Cutter/Computerized Mill Recorder signature: ICIAN SECTION Prognosis: Good Condition at [...] Date: 11/20/2018 Patient Name: Hiram Madrid Account: [id number] : 1935 (83 y.o.) Room: [place] [address] Diagnosis: Impaired mobility and gait secondary to [...] L4 performed by Lenny Corral MD at [facility] [place] [facility] Right Precautions: Restrictions/Precautions: Fall [...] to increasing pain) Transfer Assistance: Independent Active Intervention Nurse: Yes Mode of Transportation: Car 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 Leisure & Hobbies: Cooking, reading, needlepoint Additional Comments: 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, has been relying more on dtr and spouse due toworsening weakness past few weeks Current Functional Status: ADL Equipment Provided: Sock aid, Husbandry Person Feeding: Modified independent Grooming: Independent UE Bathing: [...] glasses for reading Hearing Hearing: Exceptions to [facility] Hearing Exceptions: Hard of hearing/hearing concerns, [...] PM Yarely Gordon 11/20/2018 12:35 PM EDT [facility] MUSIC THERAPY Date: 11/20/2018 Patient Name: Hiram Madrid Date of : 1935 (83 y.o.) Gender: female Diagnosis: Impaired mobility and gait secondary to NTSCI secondary to lumbar stenosis, radiculopathy, and spondylosis Referring Practitioner: Dr. Coker RESTRICTIONS/PRECAUTIONS: Restrictions/Precautions: Fall Risk Vision: Impaired Hearing: Exceptions to [facility] Hearing Exceptions: Hard of hearing/hearing concerns, [...] interested in having music therapy again. [] [facility] will attempt to see pt again another day, if time allows. [x] Pt's planned d/c date is before [facility] is scheduled on unit again. [] Pt NOT interested in having music therapy again. [facility] * Roselyn Schroeder OTA - 11/20/2018 9:59 AM EDT Occupational Therapy Facility/Department: [facility] Daily Treatment Note [...] 11/20/2018 9:55 AM EDT Occupational Therapy Facility/Department: [facility] Daily Treatment Note [...] device (slide rail) Walk: 6 - Modified [place] Walks at least 150 feet with an ambulatory device, orthosis or prosthesis OR requires extra amount of time OR there is concern for safety Distance Walked: 200' Wheel Chair: 0 - Activity Not Assessed/Does Not Occur Stairs: 6 - Modified [place] Safely goes up and down at least [...] from Dr. Ellis Holguin D.O., PM&R Attending [phone] [facility] [place] * Khanh White LPN - 11/19/2018 6:00 [...] 11/19/2018 2:05 PM EDT Occupational Therapy Facility/Department: [facility] Daily Treatment Note [...] EDT Physical Therapy Rehab Treatment Note Facility/Department: [facility] Room: [place] [address] NAME: Hiram Madrid : 1935 (83 y.o.) [...] EDT Progress Note Patient: Hiram Madrid Unit/Bed: [place] [address] Date of : 1935 Acct: [id number] Admitting Diagnosis: Impaired mobility [Z74.09] Spinal stenosis [...] and tentative discharge home tomorrow. Follows with hospice case manager in [place]. 11/18/18: called by staff educator regarding tachycardia. Pt was unaware of tachycardia. [...] to have + orthostatics. Denies hx of IA, CHF or arrhythmia. Follows with a hospice case manager from [place] for carotid artery disease and cardiac murmur. [...] to DC home and F/U with regular hospice case manager as outpatient Attending Supervising Physician's Attestation Statement The patient is a 83 y.o. female. I have performed a history and physical examination of the patient. I discussed the case with the physician assistant to the ceo. I reviewed the patient's Past Medical History, [...] EDT Physical Therapy Rehab Treatment Note Facility/Department: [facility] Room: [place] [address]- NAME: Hiram Madrid : 1935 (83 y.o.) [...] EDT Physical Therapy Rehab Treatment Note Facility/Department: [facility] NAME: Hiram Madrid : 1935 [...] Neuromuscular Education Neuromuscular Comments: Pizano Initiated: other CROSSTIE INSPECTOR finished it: pt scored a 42/56. Bed [...] education: 10 Therapeutic ex: 0 Mikayla Lindsey, CROSSTIE INSPECTOR, 11/19/18 at 11:59 AM * Khanh White [...] Unit/Bed: R238/R238-01 Date of : 1935 Acct: [id number] Admitting Diagnosis: Impaired mobility [Z74.09] Spinal stenosis of lumbosacral region [M48.07] Admit Date: 11/15/2018 Hospital Day: 4 Current Medications: Scheduled Meds: cephALEXin 500 mg Oral 3 times per day [id number]-asplumabht-nuhhowjou Topical BID enoxaparin 30 mg Subcutaneous Daily [...] woman from homewith spouse who presents to [facility] with the above deficits which impact her [...] ms QTc Calculation (Bazett) 463 ms P [place] 58 degrees R Lone[place] -11 degrees T [place] 5 degrees Xr Chest Standard (2 Vw) [...] from Dr. Ellis Holguin D.O., PM&R Attending [address] [place] [address] * Rachael Graf LPN - 11/18/2018 4:39 [...] and no guarding. Musculoskeletal: Back: Urine Culture [[id number]] Collected: 11/15/18 190 Order Status: Completed Specimen: Urine, clean catch Updated: 11/17/18 0728 Urine Culture, Routine No growth 24 hours Narrative: ORDERED BY: ADDY COKER SOURCE: Urine Clean Catch COLLECTED: 11/15/18 19:05 ANTIBIOTICS AT DI.: RECEIVED : 11/15/18 19:05 Culture Blood #2 [[id number]] Collected: 11/15/18 1637 Order Status: Completed Specimen: Blood Updated: 11/16/18 1815 Culture, Blood 2 No Growth to date. Any change in status will be called. Narrative: ORDERED BY: ADDY COKER SOURCE: Blood COLLECTED: 11/15/18 16:37 ANTIBIOTICS AT DI.: RECEIVED : 11/15/18 16:42 Culture Blood #1 [[id number]] Collected: 11/15/18 1637 Order Status: Completed Specimen: [...] Unit/Bed: R238/R238-01 Date of : 1935 Acct: [id number] Admitting Diagnosis: Impaired mobility [Z74.09] Spinal stenosis [...] L4 performed by Lenny Corral MD at [facility] [place] [facility] Right History reviewed. No pertinent family [...] on phone: None Gets together: None Attends roman catholic service: None Active member of club or organization: None Attends meetings of clubs or organizations: None Relationship status: None Intimate partner violence: Fear of current or ex partner: None Emotionally abused: None Physically abused: None Forced sexual activity: None Other Topics Concern None Social History Narrative None Subjective/HPI: called by staff educator regarding tachycardia. Pt was unaware of tachycardia. [...] woman from homewith spouse who presents to [facility] with the above deficits which impact her [...] up labs. Blanca Holguin D.O., PM&R Attending [phone] [place] [address] [place] * Dana Craig, JANET - 11/17/2018 5:45 PM EDT Monitor room called, said pt had about 18 sec run of svt up to 218; notified cardio. * Faye Summers PTA - 11/17/2018 4:07 PM EDT Physical Therapy Rehab Treatment Note Facility/Department: [facility] NAME: Hiram Madrid : 1935 [...] 11/17/2018 2:51 PM EDT Occupational Therapy Facility/Department: [facility] Daily Treatment Note [...] EDT Physical Therapy Rehab Treatment Note Facility/Department: [facility] Room: R238/R238-01 NAME: [...] EDT Physical Therapy Rehab Treatment Note Facility/Department: [facility] NAME: Hiram Madrid : 1935 [...] 11/17/2018 8:43 AM EDT Occupational Therapy Facility/Department: [facility] Daily Treatment Note [...] at below status. ADL Equipment Provided: Sock aid;Husbandry Person Grooming: Independent UE Bathing: Setup LE Bathing: [...] woman from homewith spouse who presents to [facility] with the above deficits which impact her [...] consult,check dopplers Blanca Holguin D.O., PM&R Attending [phone] [facility] [place] * Jessica Irvin, OTR/L - 11/16/2018 4:14 PM EDT Occupational Therapy Facility/Department: [facility] Daily Treatment Note NAME: Hiram Madrid : 1935 Date of Service: 11/16/2018 Discharge Recommendations: Continue to assess pending progress OT Equipment Recommendations Other: Continue to assess Assessment Performance deficits / Impairments: Decreased functional mobility ;Decreased ADL status;Decreased strength;Decreased balance;Decreased endurance;Decreased high- level IADLs Assessment: Pt. is an 83 year old woman from home with spouse who presents to [facility] with the above deficits which impact her [...] Pain: Yes Objective The patient completed the [facility] Mental Status (UMS) Examination on this [...] Unit/Bed: R238/R238-01 Date of : 1935 Acct: [id number] Admitting Diagnosis: Impaired mobility [Z74.09] Spinal stenosis of lumbosacral region [M48.07] Admit Date: 11/15/2018 Hospital Day: 1 Current Medications: Scheduled Meds: [START ON 11/17/2018] enoxaparin 40 mg Subcutaneous Daily ycgoeeqw-siogsywfef-htpislwfh Topical BID docusate sodium 100 mg Oral [...] to have + orthostatics. Denies hx of IA, CHF or arrhythmia. Follows with a hospice case manager from [place] for carotid artery disease and cardiac murmur. [...] L4 performed by Lenny Corral MD at [facility] [place] [facility] Right Social History Social [...] on phone: None Gets together: None Attends roman catholic service: None Active member of club or [...] mg 100 mg Oral Daily Shyla Vizcaino, CREATIVE RESOURCE MANAGER - CENTRAL CONTROL ROOM OPERATOR oxyCODONE-acetaminophen (PERCOCET) 5-325 MG per tablet 1 tablet 1 tablet Oral Q4H PRN Shylapresley Vizcaino, CREATIVE RESOURCE MANAGER - CENTRAL CONTROL ROOM OPERATOR potassium chloride (KLOR-CON) packet 20 mEq 20 mEq Oral BID Shyla Renato Vizcaino, CREATIVE RESOURCE MANAGER - CENTRAL CONTROL ROOM OPERATOR pravastatin (PRAVACHOL) tablet 80 mg 80 mg Oral Daily Shyla Renato Vizcaino, CREATIVE RESOURCE MANAGER - CENTRAL CONTROL ROOM OPERATOR polyethylene glycol (GLYCOLAX) packet 17 g 17 [...] EDT Physical Therapy Rehab Treatment Note Facility/Department: [facility] NAME: Hiram Madrid : 1935 (83 y.o.) [...] education: 0 Therapeutic ex: 23 Mikayla Lindsey CROSSTIE INSPECTOR, 11/16/18 at 3:57 PM * Rhiannon Blank [...] from home with spouse who presents to [facility] with the above deficits which impact her [...] to increasing pain) Transfer Assistance: Independent Active Intervention Nurse: Yes Mode of Transportation: Car Type of [...] OTR/L Jessica Irvin OTR/Lloyd * Jena Vega, CROSSTIE INSPECTOR - 11/16/2018 10:35 AM EDT Physical Therapy Rehab Treatment Note Facility/Department: [facility] Room: [place] [address] NAME: Hiram Madrid : 1935 (83 y.o.) [...] 11/16/18 at 11:10 AM * Jessenia Gordon, SUBASSEMBLIES WIRER - 11/16/2018 9:35 AM EDT [facility] RECREATIONAL THERAPY Initial Evaluation Date: 11/16/2018 [...] hearing in left ear) Patient seen at: [id number] Recreation Therapist received referral, chart reviewed and [...] her flower bed. Past leisure interests: Walking, islam, had pets Future leisure interests: Emotional Observed/noted: [...] PT - 11/16/2018 8:20 AM EDT Facility/Department: [facility] Rehabilitation Initial Assessment: Physical [facility] NAME: Hiram Madrid : 1935 [...] L4 performed by Lenny Corral MD at [facility] Right Chart Reviewed: Yes Patient assessed [...] to increasing pain) Transfer Assistance: Independent Active Intervention Nurse: Yes Additional Comments: 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, [...] side to side to initiate log roll MCC goals MCC goal 1: pt to be indep with bed mobility extermination supervisor goal 2: pt to be indep with bed transfers MCC goal 3: pt to [id number] ft with supervision extermination supervisor goal 4: pt to navigate 4 steps with SBA extermination supervisor goal 5: 30/56 for Pizano balance testing ELOS: Plan weeks: 2 Therapy Time: Individual Time In 1000 Time Out 1030 Minutes 30 Lakisha Trevino, PT, 11/16/18 at 12:00 PM * Marybel Ackerman, [facility] - 11/15/2018 11:29 PM EDT Tashia Stark [...] puffs by inhalation with spacer [] Ipratropium Opal 0.02% unit dose by aerosol Ipratropium Opal MDI 2 puffs by inhalation with spacer [] Duoneb (Ipratropium + Albuterol) unit dose by aerosol Ipratropium MDI + Albuterol MDI 2 puffs byinhalation w/spacer MDI to Aerosol [] Albuterol Sulfate MDI Albuterol Sulfate 0.083% unit dose by aerosol [] Levalbuterol MDI 2 puffs by inhalation Levalbuterol 1.25 mg unit dose by aerosol [] Ipratropium Opal MDI by inhalation Ipratropium Opal 0.02% unit dose by aerosol [] Combivent (Ipratropium + Albuterol) MDI by inhalation Duoneb (Ipratropium + Albuterol) unit doseby aerosol Treatment Assessment [Frequency/Schedule]: Change frequency to: ACCUNEB Q4 PRN per Protocol, P&T, [facility] Points 0 1 2 3 4 [...] of lumbosacral region Impaired mobility Vasovagal syncope [facility] [address] [place] [address] Chief Complaint and Reason for Visit Chief Complaint SYNCOPE Additional Source Comments INFORMATION SOURCE (unrecogn ized section and content) DATE CREATED AUTHOR 04/20/2018 [facility] DATE CREATED AUTHOR AUTHOR'S ORGANIZ ATION 11/24/2018 [facility] DATE CREATED AUTHOR AUTHOR'S ORGANIZ ATION 06/14/2022 [facility] DATE CREATED AUTHOR AUTHOR'S ORGANIZ ATION 08/21/2022 [facility] DATE CREATED AUTHOR AUTHOR'S ORGANIZ ATION 12/23/2022 [facility] DATE CREATED AUTHOR AUTHOR'S ORGANIZ ATION 01/13/2023 [facility] Reason for Visit (unrecogniz ed section and content) Reason Comments Back Pain Left low back pain r adiates down left leg. Pain flared up last monday Status Reason Specialty Diagnoses / Procedures Referre d By Contact Referred To Contact Diagnoses Intractable back pain Lenny Corarl MD [address], [address] [place] [address] [facility] Patient Care team informatio n (unrecognized [...] BE BASED ON THE PRIMARY CLINICAL RECORDS. [facility] [employer] [facility]. provides no warranty or guarantee of the accuracy or completeness of information in this document.
[2023-02-10 15:17] LABS: Sodium Urine Random 48 mmol/L (30-90)
[2023-02-10] MEDS: SODIUM CHLORIDE 3 % 500 ML 50 ML IV (15:48)
--- NOTE | 2023-02-10 16:06 | P.HP_ITS ---
H&P: HPI History of Present Illness Chief complaint: FALL Narrative: Patient presented to the emergency room after a fall. Left hip pain. CT scan evaluation in the emergency room was unremarkable. Was going to send the patient home and did check some labs. Had the patient ambulate and still had another near syncopal episode. Lab work returns significantly hyponatremic, patient admitted for workup and treatment of same, patient states her breathing feels fine, she was diagnosed with COVID 2 days ago and started medication for that. Review of Systems ROS Status of ROS 10 or more systems reviewed and unremark able except as noted in history and below [facility] Medical History Surgical History Family History Mother Family history of CHF (congestive heart failure) Father Lupus Brother Family history of myocardial infarction Family history of stroke Other Arthritis Family history of hypertension Social History Within the past year, how often did you have a drink containing alcohol: never Score interpretation: A score less than 3 is consistent with normal alcohol consumption. 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 Highest level of school completed/degree received: 8th grade Are you now , , , , never or living with a partner: In a typical week, how many times do you talk on the telephone with family, friends, or neighbors: 3 or more times per week How often do you get together with friends or relatives: 3 or more times per week How often do you attend oriental orthodox or bahai services: 4 or more times per year Do you belong to any clubs or organizations such as oriental orthodox groups unions, fraternal or athletic groups, or school groups: yes Total score: 3 Score interpretation: A score of greater than or equal to 2 indicates the lowest level of social isolation. Little interest or pleasure in doing things: not at all Feeling down, depressed, or hopeless: not at all Feel stressed/tense/nervous/anxious/difficulty sleeping: not at all Life stressors: recent of family or friend Do you think of yourself as: straight/heterosexual Gender Identity: female Meds Home Medications and Allergies Home Medications Medication Instructions Recorded Confirmed Type amlodipine 10 mg tablet 10 mg PO QDAY 08/10/22 02/10/23 History hydrochlorothiazide 25 mg tablet 25 mg PO QDAY 08/10/22 02/10/23 History levothyroxine 88 mcg tablet 88 mcg PO QDAY 08/10/22 02/10/23 History losartan 100 mg tablet 100 mg PO QDAY 08/10/22 02/10/23 History potassium chloride 20 mEq 20 meq PO TID 08/10/22 02/10/23 History tablet,extended release pravastatin 80 mg tablet 80 mg PO QDAY 08/10/22 02/10/23 History pantoprazole 40 mg tablet,delayed 40 mg PO DAILY #30 tabs 08/17/22 02/10/23 Rx release (Protonix) carvedilol 25 mg tablet 25 mg PO Q12H 02/10/23 02/10/23 History levofloxacin 500 mg tablet 500 mg PO Q24H 02/10/23 02/10/23 History magnesium oxide 400 mg (241.3 mg 400 mg PO BID PRN constipation 02/10/23 02/10/23 History magnesium) tablet nirmatrelvir 300 mg (150 mg See Rx Instructions PO .COMPLEX 02/10/23 02/10/23 History x2)-ritonavir 100 mg tablet,dose pack (Paxlovid) Allergies Allergy/AdvReac Type Severity Reaction Status Date / Time atorvastatin Allergy Severe HIVES Verified 11/10/22 20:35 prednisone Allergy Severe Rash Verified 11/10/22 20:35 Exam Constitutional Vital Signs, click to edit/add: Last Vital Signs Temp 98.1 F 02/10/23 13:26 Pulse 68 02/10/23 15:56 Resp 18 02/10/23 14:00 BP 152/68 H 02/10/23 14:00 Pulse Ox 92 L 02/10/23 14:00 O2 Del Method Room Air 02/10/23 14:00 Documenting provider has reviewed patient's vital signs: yes Common normals: no apparent distress HENMT Common normals: normocephalic and moist oral mucous membranes Chest Common normals: inspection of chest normal and palpation of chest normal Respiratory Common normals: normal respiratory effort Cardio Common normals: regular rate and regular rhythm Extremity Common normals: normal to inspection (No edema) Results Labs Labs: Short CBC 02/10/23 Range/Units 09:53 WBC 9.5 (4.0-11.0) 10^3/uL Hgb 12.3 (12.0-16.0) g/dL Hct 35.2 L (36.0-48.0) % Plt Count 312 (150-450) 10^3/uL BMP 02/10/23 09:53 Sodium 120 L* Potassium 2.8 L* Chloride 82 L* Carbon Dioxide 27.8 BUN 11.0 Creatinine 0.74 Glucose 121 H Calcium 8.8 Cardiac Enzymes 02/10/23 Range/Units 09:53 Total Creatine Kinase 76 (26-192) U/L Liver Function 02/10/23 Range/Units 09:53 Total Bilirubin 0.7 (0.2-1.0) mg/dL AST 20 (15-37) U/L ALT 23 (14-59) U/L Alkaline Phosphatase 63 (46-116) U/L Albumin 2.7 L (3.4-5.0) g/dL Urine 02/10/23 Range/Units 10:44 Urine Color Lt. yellow (YELLOW) Urine Clarity Clear (CLEAR) Urine pH 6.5 (5.0-9.0) Ur Specific [place] 1.010 (1.005-1.025) Urine Protein Negative (NEG/TRACE) mg/dL Urine Glucose (UA) Negative (NEGATIVE) mg/dL Assessment and Plan Assessment and Plan (1) Hypochloremia: (2) Acute hypokalemia: (3) Fall: (4) COVID: (5) Hyponatremia: (6) Hypomagnesemia: Plan Recent COVID-19 diagnosis-respiratory patel is doing fine. Severe hyponatremia with hypokalemia and hypomagnesemia-because of a history of fluid retention in the past. Patient with 3% based on hyponatremia with symptoms. Hypokalemia-supplement Hypomagnesemia-supplement Left hip pain. Tylenol for pain control. Physical therapy to evaluate patient. Hypertensive urgency in ER this may be related more to pain. Is improving currently. And again no shortness of breath with that. Moderate protein calorie malnutrition-diet supplement Due to the severity of the hyponatremia likely 2 to 3-day hospital stay secondary to slow correction-Place patient inpatient status. Telemetry. [facility].
[2023-02-10] MEDS: ACETAMINOPHEN 500 MG TABLET 1000 MG PO (16:08)
[2023-02-10 17:25] LABS: Anion Gap 8.8; BUN Creatinine Ratio 11.5; Calcium 8.3 mg/dL (8.5-10.1); Carbon Dioxide 28.6 mmol/L (21.0-32.0); Chloride 90 mmol/L (98-107); Creatine Kinase 171 U/L (26-192); Estimated GFR (African America >60 (>=60); Estimated GFR (Non-African Ame >60 (>=60); Glucose 158 mg/dL (74-106); Potassium 3.4 mmol/L (3.5-5.1)
[2023-02-10 17:35] LABS: Sodium 124 mmol/L (136-145)
--- NOTE | 2023-02-10 21:01 | PC.NURSE ---
perform orthostatic BP, pt asymptomatic and had mo complaints of dizziness or weakness
[2023-02-10] MEDS: ENSURE HP 237 ML LIQUID PO (21:11)
[2023-02-10] MEDS: CARVEDILOL 25 MG TABLET PO (21:12)
[2023-02-10] MEDS: MAGNESIUM OXIDE 400 MG TABLET PO (21:12)
[2023-02-10] MEDS: POTASSIUM CHLORIDE 10 MEQ ER TABLET 20 MEQ PO (21:12)
[2023-02-11] VITALS (9 sets, daily range): BP systolic 137; BP diastolic 67; PULSE 64–92; RESP 18; TEMP 36.8; O2SAT 93–96
[2023-02-11 05:52] LABS: Basophils Percent Auto 0.1 % (0.2-2.0); Hematocrit 34.1 % (36.0-48.0); Hemoglobin 11.8 g/dL (12.0-16.0); Immature Granulocytes Abs Auto 0.06 10^3/uL (0.00-0.03); Immature Granulocytes Pct Auto 0.9 % (0.0-0.5); Lymphocytes Absolute Auto 1.3 10^3/uL (1.2-3.8); Lymphocytes Percent Auto 19.6 % (20.5-60.0); Mean Corpuscular HGB Conc 34.6 g/dL (29.9-35.2); Mean Corpuscular Hemoglobin 31.1 pg (26.7-34.0); Mean Platelet Volume 8.9 fL (9.5-13.5); Monocytes Absolute Auto 0.6 10^3/uL (0.3-0.8); Monocytes Percent Auto 8.2 % (1.7-12.0); Neutrophils Absolute Auto 4.8 10^3/uL (1.4-6.5); Neutrophils Percent Auto 71.2 % (43.0-75.0); Platelet Count 334 10^3/uL (150-450); Red Blood Count 3.79 10^6/uL (4.20-5.40); Red Cell Distribution Width 13.5 % (11.0-15.0); White Blood Count 6.7 10^3/uL (4.0-11.0)
[2023-02-11 06:33] LABS: Alanine Aminotransferase 22 U/L (14-59); Albumin Globulin Ratio 0.7; Albumin Level 2.4 g/dL (3.4-5.0); Alkaline Phosphatase 58 U/L (46-116); Anion Gap 11.6; Aspartate Amino Transferase 25 U/L (15-37); BUN Creatinine Ratio 12.3; Bilirubin Total 0.3 mg/dL (0.2-1.0); Calcium 8.3 mg/dL (8.5-10.1); Carbon Dioxide 27.7 mmol/L (21.0-32.0); Chloride 97 mmol/L (98-107); Estimated GFR (African America >60 (>=60); Estimated GFR (Non-African Ame >60 (>=60); Globulin 3.6 g/dL; Glucose 124 mg/dL (74-106); Myoglobin 91 ng/mL (9-82); Potassium 3.3 mmol/L (3.5-5.1); Sodium 133 mmol/L (136-145); Troponin I High Sensitivity 6.5 pg/mL (4.0-51.3)
[2023-02-11] MEDS: LEVOTHYROXINE SODIUM 88 MCG TABLET PO (06:40)
[2023-02-11] MEDS: OMEPRAZOLE 40 MG CAPSULE.DR PO (06:40)
[2023-02-11 06:47] LABS: Creatine Kinase 390 U/L (26-192)
[2023-02-11] MEDS: POTASSIUM CHLORIDE 10 MEQ ER TABLET 20 MEQ PO (08:55)
[2023-02-11] MEDS: CARVEDILOL 25 MG TABLET PO (08:55)
[2023-02-11] MEDS: AMLODIPINE BESYLATE 5 MG TABLET 10 MG PO (08:55)
[2023-02-11] MEDS: LEVOFLOXACIN 500 MG TABLET PO (08:55)
[2023-02-11] MEDS: LOSARTAN POTASSIUM 50 MG TABLET 100 MG PO (08:55)
[2023-02-11] MEDS: MAGNESIUM OXIDE 400 MG TABLET PO (08:55)
[2023-02-11] MEDS: ENSURE HP 237 ML LIQUID PO (08:57)
--- NOTE | 2023-02-11 10:52 | P.DS_ITS ---
DS: Providers Provider Date of admission: 02/10/23 13:04 Primary care physician: Addy Clemente MD Consults: 02/10/23 14:45 Occupational Therapy Eval and Treat Routine Reason for consultation: Only if needed for Rehab Has provider been notified: No Physical Therapy Eval and Treat Routine Reason for consultation: Eval and Treat Has provider been notified: No DS: Diagnosis Discharge Diagnosis (1) Hypochloremia: (2) Acute hypokalemia: (3) Fall: (4) COVID: (5) Hyponatremia: (6) Hypomagnesemia: Plan Recent COVID-19 diagnosis-respiratory patel is doing fine. Severe hyponatremia with hypokalemia and hypomagnesemia-because of a history of fluid retention in the past. Patient with 3% based on hyponatremia with symptoms. Hypokalemia-supplement Hypomagnesemia-supplement Left hip pain. Tylenol for pain control. Physical therapy to evaluate patient. Hypertensive urgency in ER this may be related more to pain. Is improving cur rently. And again no shortness of breath with that. Moderate protein calorie malnutrition-diet supplement Due to the severity of the hyponatremia likely 2 to 3-day hospital stay secondary to slow correction-Place patient inpatient status. Telemetry. [facility]. ? DS: Summary Hospital Course Hospital Course: Patient to the emergency room status post fall with left hip pain. Evaluation there showed no fracture. Just some bruising. Patient was getting up to ambulate but had another look near syncopal episode. Lab work was obtained which showed a significant sodium of 120. With the degree of hyponatremia and symptomatic patient was admitted inpatient status. Based on history of fluid retention she was given 3% saline for the symptomatic hyponatremia. Her sodium improved faster than anticipated. She is much improved today. No further near syncopal episodes. No fluid retention. Tolerated the 3% better than anticipated. Recovered better than anticipated quickly. Her potassium is still somewhat low but much improved. I was her other issue on admission was hypokalemia. At this point she is safe to be discharged home in improving condition. Medications see list. See me after her 10-day quarantine from [email or web address]. Will do routine labs throughout the month to monitor her hyponatremia. Holding off on diuretics. Urine sodium pending. Discharged home in improving condition Time Spent with Patient Time attestation: Total time spent providing and/or coordinating discharge services: Exam Constitutional Vital Signs, click to edit/add: Last Vital Signs Temp 98.2 F 02/11/23 06:00 Pulse 72 02/11/23 10:06 Resp 18 02/11/23 08:00 BP 137/67 02/11/23 06:00 Pulse Ox 93 L 02/11/23 06:00 O2 Del Method Room Air 02/11/23 06:00 Documenting provider has reviewed patient's vital signs: yes Common normals: no apparent distress HENMT Common normals: normocephalic and moist oral mucous membranes Chest Common normals: inspection of chest normal and palpation of chest normal Respiratory Common normals: normal respiratory effort Cardio Common normals: regular rate and regular rhythm Extremity Common normals: normal to inspection (No edema) DS: Data Data Completed and Pending Labs on day of discharge: Labs from last 24 hours 02/11/23 02/10/23 02/10/23 04:54 16:53 10:44 WBC 6.7 RBC 3.79 L Hgb 11.8 L Hct 34.1 L MCV 90.0 MCH 31.1 MCHC 34.6 RDW 13.5 Plt Count 334 MPV 8.9 L Neut % (Auto) 71.2 Lymph % (Auto) 19.6 L [place] % (Auto) 8.2 Eos % (Auto) 0.0 L Baso % (Auto) 0.1 L Neut # (Auto) 4.8 Lymph # (Auto) 1.3 [place] # (Auto) 0.6 Eos # (Auto) 0.0 Baso # (Auto) 0.0 Abs Immat Gran (auto) 0.06 H Imm/Tot Granulo (auto) 0.9 H Sodium 133 L 124 L* Potassium 3.3 L 3.4 L Chloride 97 L 90 L Carbon Dioxide 27.7 28.6 Anion Gap 11.6 8.8 BUN 8.0 9.0 Creatinine 0.65 0.78 Est GFR ( Amer) >60 >60 Est GFR (Non-Af Amer) >60 >60 BUN/Creatinine Ratio 12.3 11.5 Glucose 124 H 158 H Calcium 8.3 L 8.3 L Magnesium Total Bilirubin 0.3 AST 25 ALT 22 Alkaline Phosphatase 58 Total Creatine Kinase 390 H* 171 CK-MB (CK-2) 1.30 Myoglobin 91 H Troponin I High Sens 6.5 NT-Pro-B Natriuret Pep 311.0 Total Protein 6.0 L Albumin 2.4 L Globulin 3.6 Albumin/Globulin Ratio 0.7 Urine Color Lt. yellow Urine Clarity Clear Urine pH 6.5 Ur Specific [place] 1.010 Urine Protein Negative Urine Glucose (UA) Negative Urine Ketones Negative Urine Occult Blood Negative Urine Nitrite Negative Urine Bilirubin Negative Urine Urobilinogen 0.2 Ur Leukocyte Esterase Negative Ur Random Sodium 48 02/10/23 09:53 WBC RBC Hgb Hct MCV MCH MCHC RDW Plt Count MPV Neut % (Auto) Lymph % (Auto) [place] % (Auto) Eos % (Auto) Baso % (Auto) Neut # (Auto) Lymph # (Auto) [place] # (Auto) Eos # (Auto) Baso # (Auto) Abs Immat Gran (auto) Imm/Tot Granulo (auto) Sodium 120 L* Potassium 2.8 L* Chloride 82 L* Carbon Dioxide 27.8 Anion Gap 13.0 BUN 11.0 Creatinine 0.74 Est GFR ( Amer) >60 Est GFR (Non-Af Amer) >60 BUN/Creatinine Ratio 14.9 Glucose 121 H Calcium 8.8 Magnesium 1.5 L Total Bilirubin 0.7 AST 20 ALT 23 Alkaline Phosphatase 63 Total Creatine Kinase CK-MB (CK-2) Myoglobin Troponin I High Sens 5.0 NT-Pro-B Natriuret Pep Total Protein 6.6 Albumin 2.7 L Globulin 3.9 Albumin/Globulin Ratio 0.7 Urine Color Urine Clarity Urine pH Ur Specific [place] Urine Protein Urine Glucose (UA) Urine Ketones Urine Occult Blood Urine Nitrite Urine Bilirubin Urine Urobilinogen Ur Leukocyte Esterase Ur Random Sodium Discharge Plan Discharge Disposition: Home, Self-Care Discharge Medications: Continued amlodipine 10 mg tablet 10 mg PO QDAY levothyroxine 88 mcg tablet 88 mcg PO QDAY losartan 100 mg tablet 100 mg PO QDAY pravastatin 80 mg tablet 80 mg PO QDAY potassium chloride 20 mEq tablet extended release 20 meq PO TID pantoprazole [Protonix] 40 mg tablet,delayed release (DR/EC) 40 mg PO DAILY Qty: 30 11RF carvedilol 25 mg tablet 25 mg PO Q12H levofloxacin 500 mg tablet 500 mg PO Q24H magnesium oxide 400 mg (241.3 mg magnesium) tablet 400 mg PO BID PRN (Reason: constipation) Paxlovid 300 mg (150 mg x 2)-100 mg tablets,dose pack See Rx Instructions .ROUTE .COMPLEX Rx Instructions: take TWO 150 mg tablets of nirmatrelvir with ONE 100 mg tablet of ritonavir twice daily for 5 days Discontinued hydrochlorothiazide 25 mg tablet 25 mg PO QDAY Forms: Portal Instructions
--- NOTE | 2023-02-11 11:18 | PT.DAILY ---
Physical Therapy Daily Note PT Daily Note/Assess Start: 02/10/23 16:12 Freq: Status: Active Protocol: Document 02/11/23 10:10 HAMILTON (Rec: 02/11/23 11:18 HAMILTON [id number]) Physical Therapy Daily Note/Assessment Time In/Time Out Time In 10:11 Time Out 10:28 Subjective Subjective Patient reports feeling better , agrees to PT. MD comes in during session and reports patient is being DC home today . Therapeutic Exercise Time Therapeutic Exercise Minutes (minutes) 10 Therapeutic Exercise Units 1 Therapeutic Exercise Treatment Therapeutic Exercise Treatment Standing sink exercises 10x each way; issued written handout for HEP Therapeutic Activity Time Therapeutic Activity Minutes (minutes) 7 Therapeutic Activity Units 0 Therapeutic Activity Treatment Chair Transfer Ability Modified Independent Therapeutic Activity Comments Sit to stand at RW modified Ind. Gait with RW to sink supervision. Gait without AD from sink to chair CGA, but no LOB noted. Total Physical Therapy Time Total Therapy Minutes 17 Total Physical Therapy Units 1 Summary Daily Note Summary Progressed with standing exercises and issued for HEP. Patient grandson present and both patient and family member verbalized understanding. Did attempt ambulation without AD , patient slightly unsteady and required CGA, but is modified Ind. with use of RW. Per patient does have both walker and cane at home and will use until full strength is back.
--- NOTE | 2023-02-14 14:30 | CM.DCFOLLOWU ---
No answer 02/14
== END 2023-02-11 13:05 | disposition home or self-care (01) | DRG 640 ==
LOC: ER 11:41 → MS 13:08
PROVIDERS: Admitting Provider Family Medicine; Emergency Provider Emergency Medicine; PCP Family Medicine; Visit Provider Family Medicine
DX: E87.1 Hypo-osmolality and hyponatremia (principal); U07.1 COVID-19; E44.0 Moderate protein-calorie malnutrition; J32.9 Chronic sinusitis, unspecified; E87.6 Hypokalemia; S70.02XA Contusion of left hip, initial encounter; W01.0XXA Fall on same level from slipping, tripping and stumbling without subsequent striking against object, initial encounter; Z91.81 History of falling; E87.8 Other disorders of electrolyte and fluid balance, not elsewhere classified; Z79.899 Other long term (current) drug therapy; E83.42 Hypomagnesemia; I16.0 Hypertensive urgency; M25.552 Pain in left hip; Z68.26 Body mass index [BMI] 26.0-26.9, adult; R55 Syncope and collapse; Z79.02 Long term (current) use of antithrombotics/antiplatelets
CPT/HCPCS: 36415; 70450; 71045; 72125; 72192; 80048; 80053; 81003; 82550; 82553; 83605; 83735; 83874; 83880; 84300; 84484; 85025; 85610; 85730; 87811; 93005; 94761; 96361; 96365; 96375; 97110; 97161; 99285; J1170

== ENCOUNTER 2023-03-03 09:51 | Outpatient (RCR) | payer MEDICARE, OTHER, SELFPAY ==
--- OUTSIDE RECORDS SUMMARY | 2023-03-03 10:05 | XMS_ITS | CCD ---
Author Name Unknown Address [address] [place] [address] Organization [facility] Care Team Providers Care Retail Pos Specialist Name Role Phone PHYSICIAN, DEFAULT Admitting Unavailable [...] Care Unavailable Calista Aceves Primary Care Provider [phone] CALISTA ACEVES Primary Care Physician [phone] DR VALERIE DARDEN Consulting Unavailable JEREMIAH .DR BOLAÑOS Primary Care Unavailable ADELSO, DR PADILLA Attending Unavailable ADELSO, DR PADILLA Admitting Unavailable JEREMIAH .DR BOLAÑOS Primary Care Unavailable LAKSHMIARTEMIO ., TYLER Attending Kerry vailable LAKSHMIARTEMIO ., TYLER Admitting Kerry vailable HOYousuf ., DR BOLAÑOS Primary Care Unavailable HOY [...] Unavailable MD Addy Daniels Primary Care Provider [phone] Camacho Ladd Emergency [facility] Camacho Rocha Admitting Unavailable Addy Daniels Primary Care Unavailable Camacho Ladd Attending Unavailable Addy Daniels Primary Care Unavailable Raymond Harrison Attending Unavailable Raymond Harrison Admitting Unavailable Addy Daniels Primary Care Physician [phone] MIKAYLA WEISS Attending Unavailable Raymond HARRISON Attending Unavailable HARRISONRaymond Attending Unavailable MIKAYLA WEISS Attending Unavailable Raymond HARRISON Attending Unavailable [place], [facility] Attending Unavailable LESLY ALANIZ Attending Unavailable LESLY ALANIZ Attending Unavailable Allergies Allergy Classification Reported Allergen(s) Allergy Type Date of Onset Reaction(s) Facility (5 sources) predniSONE; Translations: [prednisone] Drug Allergy 8 Hives, Eruption of skin (disorder) [place] (2 sources) predniSONE Drug Allergy 7 [facility] Repository (1 source) predniSONE Drug Allergy 3 [facility] Repository (3 sources) atorvastatin; Translations: [atorvastatin] Drug Allergy 3 Unknown (qualifier value) [facility] (2 sources) Ibuprofen; Translations: [ibuprofen] Drug Allergy Unknown (qualifier value) [facility] Natalya Medications Current Medications Medication Drug Class(es) [...] Antibacterial, Polymyxin-class Antibacterial Start: 11-16-2018 End: 11-18-2018 feqvfgfk-hsqxnjczrp-hfylqcax n (NEOSPORIN) ointment carvedilol (1 source) alpha-Adrenergic [...] 5 August 05, 2022 polyethylene glycol 3350 21052 mg powder for oral solution (1 source) Osmotic Laxative Start: 11-15-2018 polyethylene glycol (GLYCOLAX) packet 17 g Potassium Chloride (7 sources) Start: 08-10-2022 Potassium Chlo ride (Gmi-Kwqn-Hib 10) mEq, Oral, BID Start Date: 08/10/22 Status: Ordered Start: 11-05-2018 End: 11-05-2018 potassium chloride (KLOR-CON M) extended release tablet 40 mEq Start: 11-04-2018 20 mEq, Oral, 2 TIMES DAILY, First dose on Aura 11/15/18 at 2100 Dilute with at least 4 ounces of cold water. May further dilute if GI adverse effects occur. Start: 08-06-2018 take 1 tablet by [facility] once daily Potassium Chloride (Klor-Con M20) 20 mEq Tablet,Er Particles/Crystals Active 1 TAB PO Daily August 06, 2018 12:00am sennosides, chcf 8.6 mg oral tablet (1 source) Start: [...] procedure, # 2 tab(s), Refills(s) 0, Pharmacy: [facility] 1986, 155, cm, 08/10/22 9:03:00 [...] Onset: 12-31-2021 Episodic 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 source) salvage determiner (current) use of aspirin; Translations: [FPC CURRENT USE OF ASPIRIN] Onset: 12-31-2021 Episodic 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 source) Other intermediate (current) drug therapy; Translations: [OTH FPC CURRENT [...] Range Facility Office Visiton 01-11-2023 Follow-up visit [id number] Hiram Madrid 1935 F Date Provider Department Center 01/11/2023 LESLY GASPAR CARD [facility] Family History Problem Relation Age of Onset Hypertension Mother Lupus Mother Coronary artery disease Mother Heart attack Mother Hypertension Father Aneurysm Father Coronary artery disease Father Hypertension Sister Lupus Sister Family Status - Relation Status Age at Mother Father Sister Level of Service:12229 SD OFFICE/OUTPATIENT ESTABLISHED MOD MDM 30-39 MIN Normal [facility] Lab Reportson 12-23-2022 Lab Reports [id number] 0TIFF Normal [facility] Urology Office/Clinic Noteon 12-23-2022 Urology Office/Clinic [...] Pt presented to ER due to syncope. [place] was found incidentally on CT. CT AP [...] Contact Information ABDULLAHI NOONAN, MIKAYLA Pereira, URL [address] [place] [address] [phone] Additional Instructions: 6 mos w/ renal fxn [...] Tab losartan 100 mg Tab Potassium Chloride (Zhe-Kktv-Eez 10), Oral, BID pravastatin 80 mg Tab [...] virus vaccine, (more content not included)... Normal [facility] Comment on above: Result Comment: Elec tronically Signed By: MIKAYLA WEISS PA-C\.br\Date and Time Signed: 12/23/22 12:13 EDT\.br\Electronically Co-Signed By: Jacquie Gan\.br\Date and Time Co-Signed: 12/22/22 12:27 EDT Ambulatory Visit Summaryon 1 02-21-2022 Ambulatory Visit Summary HIRAM MADRID :1935 Visit Date:12/22/2022 Ambulatory Visit Instructions Your Diagnosis Hydronephrosis, right Ureteral stenosis Tests Performed Urnls Dip Stick Auto w/o Microscopy POC 45808 US Renal -- Results Pending -- Please [...] 100 mg Tab) potassium chloride (Potassium Chloride (Mjf-Qtpo-Xdc 10)) pravastatin (pravastatin 80 mg Tab) Procedures Performed Appendectomy, Bilateral salpingo-oophorectomy, Cataract extraction and insertion of intraocular lens, Cholecystectomy, Colonoscopy, Procedure on back, Tonsillectomy. Discharge Vitals Blood Pressure 124/84 Height 155 cm Height 61 in Weight 64.8 kg Weight 142.56 lb BMI 26.97 What to do next Scheduled Follow-Up Appointments June. 2023 9:30 AM EDT With: MIKAYLA WEISS PA-C Where: [facility] Natalya Anders [facility] Patient Educationon 12-23-19 Patient Education Urology [...] Follow these instructions at home: ? Take jlwb-kml-mlpcxir and prescription medicines only as told by [...] provider. Document Revised: 05/26/2020 Document Reviewed: 05/26/2020 [employer] Patient Education ? 2022 [employer]. Normal [facility] RAD - Ultrasound Reporton RAD - Ultrasound Report [id number]#1.0 0TIFF [facility] Reminderson 12-22-2022 Reminders - From: Jacquie Gan To: ERIN Weiss; Sent: 12/22/2022 12:30:05 EDT Show up: 05/23/2023 12:30:00 EDT Subject: JAC and BUN/Creatinine prior to appt Reminder Message Please Remember to:_have pt schedule JAC prior to appt. Please look for BUN/Cr labs from PCP. If unable to locate recent labs, send pt order to complete this. Normal [facility] Orders Onlyon 10-25-2022 Orders Only [id number] Hiram Madrid 1935 F Date Provider Department Center 10/25/2022 [facility] Problem Relation Age of Onset Hypertension Mother Lupus Mother Coronary artery disease Mother Heart attack Mother Hypertension Father Aneurysm Father Coronary artery disease Father Hypertension Sister Lupus Sister Family Status - Relation Status Age at Mother Father Sister Normal [facility] 37on 10-14-2022 38 Increase coreg/carvedilol to 25 mg twice a day- you have 12.5 mg tabs now so take 2 twice a day until this bottle is gone- your next refill will be the higher dose of 25 mg bid. Have labs drawn [facility] Office Visiton 10-14-2022 Follow-up visit [id number] Hiram Madrid 1935 Date Provider Department Center 10/14/2022 LESLY GASPAR SONIA Fatmata [facility] Family History Problem Relation Age of Onset Hypertension Mother Lupus Mother Coronary artery disease Mother Heart attack Mother Hypertension Father Aneurysm Father Coronary artery disease Father Hypertension Sister Lupus Sister Family Status - Relation Status Age at Mother Father Sister Level of Service:61765 SD OFFICE/OUTPATIENT ESTABLISHED MOD MDM 30-39 MIN [facility] Consent for Procedure/Surger yon 09-07-2022 Consent for Procedure/Surgery [id number]#1. 00CD:127 [facility] Ambulatory Visit Summaryon 0 09-06-2022 Ambulatory Visit Summary IHRAM MADRID :1935 Visit Date:09/06/2022 Ambulatory Visit Instructions [...] 100 mg Tab) potassium chloride (Potassium Chloride (Zym-Toiw-Unl 10)) pravastatin (pravastatin 80 mg Tab) Procedures Performed Appendectomy, Bilateral salpingo-oophorectomy, Cataract extraction and insertion of intraocular lens, Cholecystectomy, Colonoscopy, Procedure on back, Tonsillectomy. Discharge Vitals Height 155 cm Height 61 in Weight 65 kg Weight 143 lb BMI 27.06 What to do next Scheduled Follow-Up Appointments Monday 2:00 PM EDT With: CHRISTY DUMONT, Raymond Mckeon Where: [facility] Patient Educationon 09-07-19 Patient Education Urology [...] Follow these instructions at home: ? Take ajnl-bvi-ixftjhf and prescription medicines only as told by [...] provider. Document Revised: 05/26/2020 Document Reviewed: 05/26/2020 [employer] Patient Education ? 2022 [employer] Normal [facility] Urology Office/Clinic Noteon 09-06-2022 Urology Office/Clinic [...] [facility] [address], [place] [address]- Additional Instructions: 3 mos no labs Patient [...] Tab losartan 100 mg Tab Potassium Chloride (Wfw-Zsfk-Asz 10), Oral, BID pravastatin 80 mg Tab [...] inactivated 12/06/2016 Rec (more content not included)... [facility] Comment on above: Result Comment: Elec tronically Signed By: Raymond HARRISON MD\.br\Date and Time Signed: 09/06/22 13:02 EDT\.br\Electronically Co-Signed By: Josefa Stewart\.br\Date and Time Co-Signed: 09/06/22 13:01 EDT Operative Reporton Operative Report [id number] CD:127 [facility] RAD - MISCon 08-12-2022 RAD - MISC [id number] CD:127 [facility] Ambulatory Visit Summaryon 0 08-10-2022 Ambulatory Visit Summary HIRAM MADRID :1935 Visit Date:08/10/2022 Ambulatory Visit Instructions Your Diagnosis Hydronephrosis, right Aspirin long-term use Tests Performed Urnls Dip Stick Auto w/o Microscopy POC 37132 Your Care Team Attending Physician - Raymond HARRISON MD Primary Care Physician - Addy Daniels MD This Is Your Medications List Contact prescribing physician if questions or concerns amlodipine (amLODIPine 10 mg Tab) aspirin (aspirin 81 mg oral capsule) carvedilol hydrochlorothiazide levothyroxine (levothyroxine 88 mcg (0.088 mg) Tab) losartan (losartan 100 mg Tab) potassium chloride (Potassium Chloride (Gsu-Yyhd-Nes 10)) pravastatin (pravastatin 80 mg Tab) Procedures [...] When: Where: [facility] [address] [place] [address]- Medications What How Much When Instructions Unchanged [...] or concerns Unchanged potassium chloride (Potassium Chloride (Iys-Szla-Dkt 10)) 2 times a day Contact prescribing physician if questions or concerns Unchanged pravastatin (pravastatin 80 mg Tab) 30 EA, TAKE 1 TABLET BY MOUTH ONCE DAILY Contact prescribing physician if questions or concerns Test Results Urnls Dip Stick Auto w/o Microscopy POC 78071 (08/10/2022) Bilirubin Urine Dipstick - Negative Blood Urine Dipstick - Negative Glucose Urine Dipstick - Negative Ketones Urine Dipstick - Negative Leukocytes Urine Dipstick - Trace Nitrite Urine Dipstick - Negative Protein Urine Dipstick - Negative Specific [place] Urine Dipstick - 1.025 Urine Appearance Urine [...] what caus (more content not included)... Normal [facility] Ambulatory Visit Summary HIRAM MADRID :1935 Visit Date:08/10/2022 Ambulatory Visit Instructions Your Diagnosis Hydronephrosis, right Aspirin long-term use Tests Performed Urnls Dip Stick Auto w/o Microscopy POC 40727 Your Care Team Attending Physician - CHRISTY DUMONT, Raymond Mckeon Primary Care Physician - Addy Daniels MD This Is Your Medications List Contact prescribing physician if questions or concerns amlodipine (amLODIPine 10 mg Tab) aspirin (aspirin 81 mg oral capsule) carvedilol hydrochlorothiazide levothyroxine (levothyroxine 88 mcg (0.088 mg) Tab) losartan (losartan 100 mg Tab) potassium chloride (Potassium Chloride (Dte-Jxzf-Qsc 10)) pravastatin (pravastatin 80 mg Tab) Procedures [...] Where: [facility] [address] [place] [address]- Medications What How Much When Instructions Unchanged [...] or concerns Unchanged potassium chloride (Potassium Chloride (Sfl-Drzw-Ezj 10)) 2 times a day Contact prescribing physician if questions or concerns Unchanged pravastatin (pravastatin 80 mg Tab) 30 EA, TAKE 1 TABLET BY MOUTH ONCE DAILY Contact prescribing physician if questions or concerns Test Results Urnls Dip Stick Auto w/o Microscopy POC 38243 (08/10/2022) Bilirubin Urine Dipstick - Negative Blood Urine Dipstick - Negative Glucose Urine Dipstick - Negative Ketones Urine Dipstick - Negative Leukocytes Urine Dipstick - Trace Nitrite Urine Dipstick - Negative Protein Urine Dipstick - Negative Specific [place] Urine Dipstick - 1.025 Urine Appearance Urine [...] what caus (more content not included)... Normal [facility] Consent for Procedure/Surger yon 08-10-2022 Consent for Procedure/Surgery [id number] CD:127 [facility] Formson 08-10-2022 Forms [id number]#1.00 CD:127 [facility] Patient Educationon 08-11-19 Patient Education Urology Hydronephrosis [...] Follow these instructions at home: ? Take rzzf-ipu-fehbagy and prescription medicines only as told by [...] provider. Document Revised: 05/26/2020 Document Reviewed: 05/26/2020 [employer] Patient Education ? 2022 [employer]. [employer] [facility] Urology Office/Clinic Noteon 08-10-2022 Urology Office/Clinic Note Chief Complaint Kidney stones HPI Staff New Pt follow up to [facility] on 08/05/[address] to [address] [...] yo female new pt following up to [facility] ER visit on 08/05/22 due to nausea, [...] General anesthesia. 2. Aspirin long-term use (Z79.82: salvage determiner (current) use of aspirin) No other BTs. Follow-up With When Contact Information Raymond HARRISON MD, URL [facility] [address], [place] [address]- Additional Instructions: schedule R URS, possible laser [...] No qualifyin (more content not included)... Normal [facility] Comment on above: Result Comment: Elec tronically Signed By: Raymond HARRISON MD\.br\Date and Time Signed: 08/10/22 09:39 EDT\.br\Electronically Co-Signed By: Josefa Stewart\.br\Date and Time Co-Signed: 08/10/22 09:38 EDT XR KUB[facility] 08-09-2022 XR [facility] [address] [address] XRay Report Signed Patient: Hiram Madrid MR#: [id number] : 1935 Acct:[id number] Age/Sex: 86 / F ADM Date: 08/09/22 Loc: XD [facility]: [facility]: Raymond Harrison MD Copies to: [...] Lopez Jr., D.OYou08/09/2022 3:58 PM Dictation Location: [place] [address] Transcribed By: [facility] 08/09/22 1558 Dictated By: Kameron Lopez Jr, DO 08/09/22 1555 Signed By: 08/09/22 [address] [facility] [address] abdomen pelvis wo conon 0 08-06-2022 CT abdomen pelvis wo con [place] [id number] CT Scan Report Signed Patient: Hiram Madrid MR#: [id number] : 1935 Acct:[id number] Age/Sex: 86 / F ADM Date: 08/05/22 Loc: ER Room: Type: [facility] ER Attending Dr: Copies to: Camacho [...] Faye Wyman M.D.08/06/2022 8:43 AM Dictation Location: [place] [address] Transcribed By: [facility] 08/06/22 0843 Dictated By: Faye Wyman MD 08/06/22 0830 Signed By: 08/06/22 0843 Normal [facility] Alanine aminotransferase [En zymatic activity/volume] in Serum or PlasmaOrdered By: Camacho Ladd on 08-05-2022 ALT [Catalytic activity/Vol] 16 U/L 7-52 [facility] Albumin [Mass/volume] in Ser um or Plasma by Bromocresol green (BCG) dye binding methoOrdered By: Camacho Ladd on 08-05-2022 Albumin BCG dye [Mass/Vol] 4.4 g/dL 3.5-5.7 [facility] Alkaline phosphatase [Enzyma tic activity/volume] in Serum or PlasmaOrdered By: Camacho Ladd on 08-05-2022 ALP [Catalytic activity/Vol] 61 U/L 34-104 [facility] Aspartate aminotransferase [ Enzymatic activity/volume] in Serum or PlasmaOrdered By: Camacho Ladd on 08-05-2022 AST [Catalytic activity/Vol] 21 U/L 13-39 [facility] Automated erythrocytes count in urine sediment (number/area)Ordered By: Camacho Ladd on 08-05-2022 RBC Auto (Urine sed) [#/Area] 0-1 [HPF] 0-4 [facility] Automated leukocytes count i n urine sediment (number/area)Ordered By: Camacho aLdd on 08-05-2022 WBC Auto (Urine sed) [#/Area] 1-2 [HPF] 0-4 [facility] Basic Metabolic Panelon 07-21 Anion gap [Moles/Vol] 17.8 mmol/L High 6.0-15.0 [facility] Comment on above: Performed By: #### H S TROP, HEPATIC, LIPASE, CBC, BMP #### [facility] [address] Calcium [Mass/Vol] 9.7 mg/dL Normal 8.6-10.3 [facility] Comment on above: Performed By: #### H S TROP, HEPATIC, LIPASE, CBC, BMP #### [facility] [address] [place] [address] [place] Chloride [Moles/Vol] 87 mmol/L Low 98-107 [facility] Comment on above: Performed By: #### H S TROP, HEPATIC, LIPASE, CBC, BMP #### [facility] [address] [place] [address] [place] CO2 [Moles/Vol] 23.2 mmol/L Normal 21.0-31.[address] [facility] Comment on above: Performed By: #### H S TROP, HEPATIC, LIPASE, CBC, BMP #### [facility] [address] Creatinine [Mass/Vol] 1.03 mg/dL Normal 0.60-1.20 [facility] Comment on above: Performed By: #### H S TROP, HEPATIC, LIPASE, CBC, BMP #### [facility] [address] Creatinine Clr Calc Pharmacy 35.13 [facility] Comment on above: Performed By: #### H S TROP, HEPATIC, LIPASE, CBC, BMP #### [place] [address] [place] GFR/1.73 sq M.predicted MDRD (S/P/Bld) [Vol rate/Area] 53.284 mL/min/{1.73_m2} [facility] Comment on above: Performed By: #### H S TROP, HEPATIC, LIPASE, CBC, BMP #### [address] Glucose [Mass/Vol] 156 mg/dL High 70-100 [facility] Comment on above: Result Comment: [facility] Glucose Reference Range is dependent on time and content of last meal. Glucose of more than 200 mg/dL in a nonstressed, ambulatory subject supports the diagnosis of Diabetes Mellitus. ADA recommended reference range Performed By: #### H S TROP, HEPATIC, LIPASE, CBC, BMP #### [address] Potassium [Moles/Vol] 3.0 mmol/L Low 3.5-5.1 [facility] Comment on above: Performed By: #### H S TROP, HEPATIC, LIPASE, CBC, BMP #### [place] [address] [place] Sodium [Moles/Vol] 125 mmol/L Low 136-145 [facility] Comment on above: Performed By: #### H S TROP, HEPATIC, LIPASE, CBC, BMP #### [place] [address] [place] Urea nitrogen [Mass/Vol] 12 mg/dL Normal 7-25 [facility] Comment on above: Performed By: #### H S TROP, HEPATIC, LIPASE, CBC, BMP #### [facility] [address] Basophils Auto (Bld) [#/Vol] Ordered By: Camacho Ladd on 08-05-2022 Basophils (Bld) [#/Vol] 0.1 10*3/uL 0.0-0.2 [facility] Basophils/100 WBC Auto (Bld) Ordered By: Camacho Ladd on 08-05-2022 Basophils/100 WBC (Bld) 0.4 % . F [facility] Bilirubin Test strip Ql (U)O rdered By: Camacho Ladd on 08-05-2022 Bilirubin Ql (U) Negative Negative [facility] Bilirubin.direct [Mass/volum e] in Serum or PlasmaOrdered By: Camacho Ladd on 08-05-2022 Bilirubin.direct [Mass/Vol] 0.10 mg/dL 0.03-0.18 [facility] Bilirubin.total [Mass/volume ] in Serum or PlasmaOrdered By: Camacho Ladd on 08-05-2022 Bilirubin [Mass/Vol] 0.7 mg/dL 0.3-1.0 [facility] Calcium [Mass/volume] in Ser um or PlasmaOrdered By: Camacho Ladd on 08-05-2022 Calcium [Mass/Vol] 9.7 mg/dL 8.6-10.3 [facility] Carbon dioxide, total [Moles /volume] in Serum or PlasmaOrdered By: Camacho Ladd on 08-05-2022 CO2 [Moles/Vol] 23.2 mmol/L 21.0-31.[address] [facility] Chloride [Moles/volume] in S willa or PlasmaOrdered By: Camacho Ladd on 08-05-2022 Chloride [Moles/Vol] 87 mmol/L 98-107 [facility] Color Auto (U)Ordered By: Ender Ladd on 08-05-2022 Color (U) Yellow Yellow [facility] Complete Blood Count Auto Di ffon 08-05-2022 Basophils (Bld) [#/Vol] 0.1 10*3/uL Normal 0.0-0.2 [facility] Comment on above: Result Comment: PERF ORMED BY: [place] [address] PATHOLOGIST PULP [employer]ESS TENDER GOSIA MCADAMS M.D. Performed By: #### H S TROP, HEPATIC, LIPASE, CBC, BMP #### [address] Basophils/100 WBC (Bld) 0.4 % Normal . F [facility] Comment on above: Performed By: #### H S TROP, HEPATIC, LIPASE, CBC, BMP #### [address] Eosinophils (Bld) [#/Vol] 0.1 10*3/uL Normal 0.0-0.45 [facility] Comment on above: Performed By: #### H S TROP, HEPATIC, LIPASE, CBC, BMP #### [address] Eosinophils/100 WBC (Bld) 0.6 % Normal . [facility] Comment on above: Performed By: #### H S TROP, HEPATIC, LIPASE, CBC, BMP #### [address] Erythrocyte distribution width (RBC) [Ratio] 13.6 % Normal 11.9-15.3 [facility] Comment on above: Performed By: #### H S TROP, HEPATIC, LIPASE, CBC, BMP #### [address] Hematocrit (Bld) [Volume fraction] 37.3 % Normal 34.0-46.4 [facility] Comment on above: Performed By: #### H S TROP, HEPATIC, LIPASE, CBC, BMP #### [address] Hemoglobin (Bld) [Mass/Vol] 13.0 g/dL Normal 11.8-15.4 [facility] Comment on above: Performed By: #### H S TROP, HEPATIC, LIPASE, CBC, BMP #### [place] [id number] [place] Lymphocytes (Bld) [#/Vol] 3.1 10*3/uL Normal 1.00-4.8 [facility] Comment on above: Performed By: #### H S TROP, HEPATIC, LIPASE, CBC, BMP #### [facility] [address] [place] [address] Lymphocytes/100 WBC (Bld) 21.9 % Normal . [facility] Comment on above: Performed By: #### H S TROP, HEPATIC, LIPASE, CBC, BMP #### [address] MCH (RBC) [Entitic mass] 31.6 pg Normal 24.7-34.3 [facility] Comment on above: Performed By: #### H S TROP, HEPATIC, LIPASE, CBC, BMP #### [address] MCV (RBC) [Entitic vol] 90.4 fL Normal 80-100 F [facility] Comment on above: Performed By: #### H S TROP, HEPATIC, LIPASE, CBC, BMP #### [address] Mean Corpuscular HGB Conc 35.0 g/dL Normal 32.0-35.0 [facility] Comment on above: Performed By: #### H S TROP, HEPATIC, LIPASE, CBC, BMP #### [address] Monocytes (Bld) [#/Vol] 1.4 10*3/uL High 0.0-0.8 [facility] Comment on above: Performed By: #### H S TROP, HEPATIC, LIPASE, CBC, BMP #### [address] Monocytes/100 WBC (Bld) 20.58 % High 0.00-20.00 F [facility] Comment on above: Result Comment: For adults in ED, MDW > 20.0 may be associated with a higher risk of sepsis during the first 12 hrs of hospital admission Performed By: #### H S TROP, HEPATIC, LIPASE, CBC, BMP #### [address] Monocytes/100 WBC (Bld) 9.6 % Normal . F [facility] Comment on above: Performed By: #### H S TROP, HEPATIC, LIPASE, CBC, BMP #### [address] Neutrophils (Bld) [#/Vol] 9.6 10*3/uL High 1.8-7.7 [facility] Comment on above: Performed By: #### H S TROP, HEPATIC, LIPASE, CBC, BMP #### [address] Neutrophils/100 WBC (Bld) 67.5 % Normal . [facility] Comment on above: Performed By: #### H S TROP, HEPATIC, LIPASE, CBC, BMP #### [address] NRBC% 0.1 /100{WBC} Normal 0-0.5 [facility] Comment on above: Performed By: #### H S TROP, HEPATIC, LIPASE, CBC, BMP #### [address] [address] Platelet mean volume (Bld) [Entitic vol] 7.2 fL Normal 6.3-10.7 [facility] Comment on above: Performed By: #### H S TROP, HEPATIC, LIPASE, CBC, BMP #### [place] [address] [place] Platelets (Bld) [#/Vol] 500 10*3/uL High 150-450 [facility] Comment on above: Performed By: #### H S TROP, HEPATIC, LIPASE, CBC, BMP #### [address] RBC (Bld) [#/Vol] 4.13 10*6/uL Normal 3.60-5.00 [facility] Comment on above: Performed By: #### H S TROP, HEPATIC, LIPASE, CBC, BMP #### [place] [address] [place] WBC (Bld) [#/Vol] 14.2 10*3/uL High 3.8-11.6 [facility] Comment on above: Performed By: #### H S TROP, HEPATIC, LIPASE, CBC, BMP #### [facility] [address] [id number] [place] Creatinine [Mass/volume] in Serum or PlasmaOrdered By: Camacho Ladd on 08-05-2022 Creatinine [Mass/Vol] 1.03 mg/dL 0.60-1.20 [facility] Dipstick and Microscopicon 0 08-05-2022 Appearance (U) Cloudy Critically abnormal Clear [facility] Comment on above: Order Comment: Name Collection Type:: Clean-Voided Midstream Performed By: #### A DDONUAPLUS #### [facility] [address] Bacteria,Urine None Seen Normal None Seen [facility] Comment on above: Order Comment: Name Collection Type:: Clean-Voided Midstream Performed By: #### A DDONUAPLUS #### [facility] [address] [place] [address] [place] Bilirubin,Urine Negative Normal Negative [facility] Comment on above: Order Comment: Name Collection Type:: Clean-Voided Midstream Performed By: #### A DDONUAPLUS #### [facility] [address] [id number] [place] Color (U) Yellow Normal Yellow [facility] Comment on above: Order Comment: Name Collection Type:: Clean-Voided Midstream Performed By: #### A DDONUAPLUS #### [facility] [address] [phone] [place] Glucose Ql (U) Normal Normal Normal [facility] Comment on above: Order Comment: Name Collection Type:: Clean-Voided Midstream Performed By: #### A DDONUAPLUS #### [facility] [address] [phone] [place] Hyaline Casts,Urine None Seen Normal 0-8 [facility] Comment on above: Order Comment: Name Collection Type:: Clean-Voided Midstream Result Comment: PERF ORMED BY: [place] [address] PATHOLOGIST [employer] GOSIA MCADAMS M.D. Performed By: #### A DDONUAPLUS #### [address] Ketones Ql (U) Negative Normal Negative [facility] Comment on above: Order Comment: Name Collection Type:: Clean-Voided Midstream Performed By: #### A DDONUAPLUS #### [address] Leukocyte esterase Test strip Ql (U) 1+ High Negative [facility] Comment on above: Order Comment: Name Collection Type:: Clean-Voided Midstream Performed By: #### A DDONUAPLUS #### [place] [address] [place] Nitrite,Urine Negative Normal Negative [facility] Comment on above: Order Comment: Name Collection Type:: Clean-Voided Midstream Performed By: #### A DDONUAPLUS #### [place] [address] [place] Occult Blood,Urine Negative Normal Negative [facility] Comment on above: Order Comment: Name Collection Type:: Clean-Voided Midstream Result Comment: PERF ORMED BY: [place] [address] PATHOLOGIST [employer] GOSIA MCADAMS M.D. Performed By: #### A DDONUAPLUS #### [place] [address] [place] pH (U) 7.0 [pH] Normal 5.0-9.0 [facility] Comment on above: Order Comment: Name Collection Type:: Clean-Voided Midstream Performed By: #### A DDONUAPLUS #### [place] [address] [place] Protein,Urine Negative Normal Negative [facility] Comment on above: Order Comment: Name Collection Type:: Clean-Voided Midstream Performed By: #### A DDONUAPLUS #### [address] [place] [address] [place] RBC LM.HPF (Urine sed) [#/Area] 0 /[HPF] Normal 0-4 [facility] Comment on above: Order Comment: Name Collection Type:: Clean-Voided Midstream Performed By: #### A DDONUAPLUS #### [facility] [address] [place] [address] Specificy [place],Urine 1.009 Normal 1.001-1.030 [facility] Comment on above: Order Comment: Name Collection Type:: Clean-Voided Midstream Performed By: #### A DDONUAPLUS #### [facility] [address] [place] [address] Squamous Epithelial Cell,Urine 0-1 Normal 0-2 [facility] Comment on above: Order Comment: Name Collection Type:: Clean-Voided Midstream Performed By: #### A DDONUAPLUS #### [facility] [address] [place] [address] Urobilinogen,Urine Normal Normal Normal [facility] Comment on above: Order Comment: Name Collection Type:: Clean-Voided Midstream Performed By: #### A DDONUAPLUS #### [facility] [address] [place] [address] [place] WBC,Urine 1-2 Normal 0-4 [facility] Comment on above: Order Comment: Name Collection Type:: Clean-Voided Midstream Performed By: #### A DDONUAPLUS #### [facility] [address] [place] [address] ECG 12 lead ECGon 08-05-2022 ECG 12 lead ECG [facility] [place] [address] [place] [address] Electrocardiograph Report Signed Patient: Hiram Madrid MR#: [id number] : 1935 Acct:[id number] Age/Sex: 86 / F ADM Date: 08/05/22 Loc: ER Room: Type: [facility] ER Attending Dr: Ordering Provider: Camacho [...] branch block Confirmed by Camacho Ladd DO ([id number]) on 08/06/2022 1:49:12 AM Referred By: Electronically Signed By:Camacho Ladd DO Transcribed By: MUS Signed By Camacho Ladd DO [id number] Normal [facility] Eosinophils Auto (Bld) [#/Vo l]Ordered By: Camacho Ladd on 08-05-2022 Eosinophils (Bld) [#/Vol] 0.1 10*3/uL 0.0-0.45 [facility] Eosinophils/100 WBC Auto (Bl d)Ordered By: Camacho Ladd on 08-05-2022 Eosinophils/100 WBC (Bld) 0.6 % . [facility] Erythrocyte distribution wid th Auto (RBC) [Ratio]Ordered By: Camacho Ladd on 08-05-2022 Erythrocyte distribution width (RBC) [Ratio] 13.6 % 11.9-15.3 [facility] Globulin Calc (S) [Mass/Vol] Ordered By: Camacho Ladd on 08-05-2022 Globulin (S) [Mass/Vol] 2.9 g/dL [facility] Glucose [Mass/volume] in Ser um or PlasmaOrdered By: Camacho Ladd on 08-05-2022 Glucose [Mass/Vol] 156 mg/dL 70-100 [facility] Comment on above: ADA recommended refe rence rangeRandom Glucose Reference Range is dependent on time and content of last meal. Glucose of more than 200 mg/dL in a nonstressed, ambulatory subject supports the diagnosis of Diabetes Mellitus. Hematocrit Auto (Bld) [Volum e fraction]Ordered By: Camacho Ladd on 08-05-2022 Hematocrit (Bld) [Volume fraction] 37.3 % 34.0-46.4 [facility] Hemoglobin [Mass/volume] in BloodOrdered By: Camacho Ladd on 08-05-2022 Hemoglobin (Bld) [Mass/Vol] 13.0 g/dL 11.8-15.4 [facility] Hepatic Panelon 08-05-2022 Albumin [Mass/Vol] 4.4 g/dL Normal 3.5-5.7 [facility] Comment on above: Performed By: #### H S TROP, HEPATIC, LIPASE, CBC, BMP #### [facility] [address] Albumin/Globulin [Mass ratio] 1.5 {ratio} Normal [facility] Comment on above: Performed By: #### H S TROP, HEPATIC, LIPASE, CBC, BMP #### [facility] [address] ALP [Catalytic activity/Vol] 61 U/L Normal 34-104 [facility] Comment on above: Performed By: #### H S TROP, HEPATIC, LIPASE, CBC, BMP #### [facility] [address] [place] [address] [place] ALT [Catalytic activity/Vol] 16 U/L Normal 7-52 [facility] Comment on above: Performed By: #### H S TROP, HEPATIC, LIPASE, CBC, BMP #### [facility] [address] [place] [address] [place] AST [Catalytic activity/Vol] 21 U/L Normal 13-39 [facility] Comment on above: Performed By: #### H S TROP, HEPATIC, LIPASE, CBC, BMP #### [facility] [address] [place] [address] [place] Bilirubin [Mass/Vol] 0.7 mg/dL Normal 0.3-1.0 [facility] Comment on above: Performed By: #### H S TROP, HEPATIC, LIPASE, CBC, BMP #### [facility] [address] [place] [address] [place] Bilirubin,Indirect 0.6 mg/dL Normal [facility] Comment on above: Performed By: #### H S TROP, HEPATIC, LIPASE, CBC, BMP #### [facility] [address] [place] [address] [place] Bilirubin.indirect [Mass/Vol] 0.10 mg/dL Normal 0.03-0.18 [facility] Comment on above: Performed By: #### H S TROP, HEPATIC, LIPASE, CBC, BMP #### [facility] [address] Globulin (S) [Mass/Vol] 2.9 g/dL Normal F [facility] Comment on above: Performed By: #### H S TROP, HEPATIC, LIPASE, CBC, BMP #### [facility] [address] Protein [Mass/Vol] 7.3 g/dL Normal 6.4-8.9 [facility] Comment on above: Performed By: #### H S TROP, HEPATIC, LIPASE, CBC, BMP #### [address] Ketones Auto test strip (U) [Mass/Vol]Ordered By: Camacho Ladd on 08-05-2022 Ketones (U) [Mass/Vol] Negative Negative [facility] Laboratory - UrinalysisOrder ed By: Camacho Ladd on 08-05-2022 Hyaline casts LM Ql (Urine sed) None seen [LPF] 0-8 [facility] Leukocytes [#/volume] correc sofiya for nucleated erythrocytes in Blood by Automated counOrdered By: Camacho Ladd on 08-05-2022 WBC corrected for nucl RBC Auto (Bld) [#/Vol] 14.2 10*3/uL 3.8-11.6 [facility] Lipaseon 08-05-2022 Lipase [Catalytic activity/Vol] 23.0 U/L Normal 11.0-82.0 [facility] Comment on above: Result Comment: PERF ORMED BY: [address] [place] [address] PATHOLOGIST [employer] GOSIA MCADAMS M.D. Performed By: #### H S TROP, HEPATIC, LIPASE, CBC, BMP #### [facility] [address] [place] [address] Lipase [Enzymatic activity/v olume] in Serum or PlasmaOrdered By: Camacho Ladd on 08-05-2022 Lipase [Catalytic activity/Vol] 23.0 U/L 11.0-82.0 [facility] Lymphocytes Auto (Bld) [#/Vo l]Ordered By: Camacho Ladd on 08-05-2022 Lymphocytes (Bld) [#/Vol] 3.1 10*3/uL 1.00-4.8 [facility] Lymphocytes/100 WBC Auto (Bl d)Ordered By: Camacho Ladd on 08-05-2022 Lymphocytes/100 WBC (Bld) 21.9 % . [facility] MCH Auto (RBC) [Entitic mass ]Ordered By: Camacho Ladd on 08-05-2022 MCH (RBC) [Entitic mass] 31.6 pg 24.7-34.3 [facility] MCHC Auto (RBC) [Mass/Vol]Or dered By: Camacho Ladd on 08-05-2022 MCHC (RBC) [Mass/Vol] 35.0 g/dL 32.0-35.[address] [facility] MCV Auto (RBC) [Entitic vol] Ordered By: Camacho Ladd on 08-05-2022 MCV (RBC) [Entitic vol] 90.4 fL 80-100 F [facility] Monocyte distribution width [Entitic volume] in Blood by AutomatedOrdered By: Camacho Ladd on 08-05-2022 Monocyte distribution width Auto (Bld) [Entitic vol] 20.58 % 0.00-20.00 [facility] Comment on above: For adults in ED, MD W > 20.0 may be associated with a higher risk of sepsis during the first 12 hrs of hospital admission Monocytes Auto (Bld) [#/Vol] Ordered By: Camacho Ladd on 08-05-2022 Monocytes (Bld) [#/Vol] 1.4 10*3/uL 0.0-0.8 [facility] Monocytes/100 WBC Auto (Bld) Ordered By: Camacho Ladd on 08-05-2022 Monocytes/100 WBC (Bld) 9.6 % . [facility] Neutrophils Auto (Bld) [#/Vo l]Ordered By: Camacho Ladd on 08-05-2022 Neutrophils (Bld) [#/Vol] 9.6 10*3/uL 1.8-7.7 [facility] Neutrophils/100 WBC Auto (Bl d)Ordered By: Camacho Ladd on 08-05-2022 Neutrophils/100 WBC (Bld) 67.5 % . [facility] Nitrite Test strip Ql (U)Ord ered By: Camacho Ladd on 08-05-2022 Nitrite Ql (U) Negative Negative [facility] No Panel InformationOrdered By: Camacho Ladd on 08-05-2022 Estimated GFR (CKD-EPI) 53.284 mL/Min [facility] Creatinine Clearance (Chem 35.13 [facility] Nucleated erythrocytes [Pres ence] in Blood by Automated countOrdered By: Camacho Ladd on 08-05-2022 Nucleated RBC Auto Ql (Bld) 0.1 /100{WBC} 0-0.5 [facility] Platelet mean volume Auto (B ld) [Entitic vol]Ordered By: Camacho Ladd on 08-05-2022 Platelet mean volume (Bld) [Entitic vol] 7.2 fL 6.3-10.7 [facility] Platelets Auto (Bld) [#/Vol] Ordered By: Camacho Ladd on 08-05-2022 Platelets (Bld) [#/Vol] 500 10*3/uL 150-450 [facility] Potassium [Moles/volume] in Serum or PlasmaOrdered By: Camacho Ladd on 08-05-2022 Potassium [Moles/Vol] 3.0 mmol/L 3.5-5.1 [facility] Protein Auto test strip (U) [Mass/Vol]Ordered By: Camacho Ladd on 08-05-2022 Protein (U) [Mass/Vol] Negative Negative [facility] Protein [Mass/volume] in Ser um or PlasmaOrdered By: Camacho Ladd on 08-05-2022 Protein [Mass/Vol] 7.3 g/dL 6.4-8.9 [facility] RBC Auto (Bld) [#/Vol]Ordere d By: Camacho Ladd on 06-16-2023 RBC (Bld) [#/Vol] 4.13 10*6/uL 3.60-5.00 [facility] Serum or plasma albumin/glob ulin mass ratioOrdered By: Camacho Ladd on 08-05-2022 Albumin/Globulin [Mass ratio] 1.5 {ratio} [facility] Serum or plasma anion gap de terminationOrdered By: Camacho Ladd on 08-05-2022 Anion gap [Moles/Vol] 17.8 mmol/L 6[facility]0-[facility] or plasma non-glucuron idated bilirubin measurement (mass/volume)Ordered By: Camacho Ladd on 08-05-2022 Bilirubin.indirect [Mass/Vol] 0.6 mg/dL [facility] Sodium [Moles/volume] in Ser um or PlasmaOrdered By: Camacho Ladd on 08-05-2022 Sodium [Moles/Vol] 125 mmol/L 136-145 [facility] Specific gravity Auto test s trip (U) [Rel density]Ordered By: Camacho Ladd on 08-05-2022 Specific gravity (U) [Rel density] 1.009 1.001-1.030 [facility] Squamous epithelial cells de tection in urine sediment by light microscopyOrdered By: Camacho Ladd on 08-05-2022 Epithelial cells.squamous LM Ql (Urine sed) 0-1 [HPF] 0-2 [facility] Troponin I High Sensitivityo n 08-05-2022 Troponin I High Sensitivity 7.7 pg/mL Normal 0.0-15.0 [facility] Comment on above: Result Comment: PERF ORMED BY: [place] [address] PATHOLOGIST [employer] GOSIA MCADAMS M.D. Performed By: #### H S TROP, HEPATIC, LIPASE, CBC, BMP #### [address] Troponin I.cardiac [Mass/vol ume] in Serum or Plasma by Detection limit <= 0.01 ng/Ordered By: Camacho Ladd on 08-05-2022 Troponin I.cardiac DL <= 0.01 ng/mL [Mass/Vol] 7.7 pg/mL 0.0-15.0 [facility] Urea nitrogen [Mass/volume] in Serum or PlasmaOrdered By: Cmaacho Ladd on 08-05-2022 Urea nitrogen [Mass/Vol] 12 mg/dL 7-25 [facility] Urine bacteria detection by automated methodOrdered By: Camacho Ladd on 08-05-2022 Bacteria Auto Ql (U) None seen None Seen [facility] Urine clarity by refractomet ry automatedOrdered By: Camacho Ladd on 08-05-2022 Clarity Refractometry automated (U) Cloudy Clear [facility] Urine glucose measurement by automated test strip (mass/volume)Ordered By: Camacho Ladd on 08-05-2022 Glucose Auto test strip (U) [Mass/Vol] Normal mg/dL Normal [facility] Urine hemoglobin detection b y automated test stripOrdered By: Camacho Ladd on 08-05-2022 Hemoglobin Auto test strip Ql (U) Negative Negative [facility] Urine leukocyte esterase det ection by automated test stripOrdered By: Camacho Ladd on 08-05-2022 Leukocyte esterase Auto test strip Ql (U) 1+ Negative [facility] Urobilinogen Auto test strip (U) [Mass/Vol]Ordered By: Camacho Ladd on 08-05-2022 Urobilinogen (U) [Mass/Vol] Normal mg/dL Normal [facility] WBC Auto (Bld) [#/Vol]Ordere d By: Camacho Ladd on 08-05-2022 WBC (Bld) [#/Vol] 14.2 10*3/uL 3.8-11.6 [facility] pH Auto test strip (U)Ordere d By: Camacho Ladd on 08-05-2022 pH (U) 7.0 [pH] 5.0-9.0 [facility] BNPon 06-13-2022 Natriuretic peptide B (Bld) [Mass/Vol] 142.0 pg/mL Normal <=1,800.0 [facility] Comment on above: Performed By: #### T , BMP #### [facility] [address] [place] [address] Dr. Tasha Dodson CBC AUTO DIFFon 06-13-2022 BASO # 0.1 103/ul Normal 0.0-0.1 [facility] Comment on above: Performed By: #### T SH, BMP #### [facility] [address] [place] [address] Dr. Tasha Dodson Basophils/100 WBC (Bld) 1.0 % Normal 0.2-2.0 [facility] Comment on above: Performed By: #### T SH, BMP #### [facility] [address] [place] [address] Dr. Tasha Dodson EO # 0.3 103/ul Normal 0.0-0.7 [facility] Comment on above: Performed By: #### T SH, BMP #### [facility] [address] [place] [address] Dr. Tasha Dodson Eosinophils/100 WBC (Bld) 2.6 % Normal 0.9-7.0 [facility] Comment on above: Performed By: #### T SH, BMP #### [facility] [address] [place] [address] Dr. Tasha Dodson Erythrocyte distribution width (RBC) [Ratio] 13.4 % Normal 11.0-15.0 [facility] Comment on above: Performed By: #### T SH, BMP #### [facility] [address] [place] [address] Dr. Tasha Dodson Hematocrit (Bld) [Volume fraction] 39.5 % Normal 36.0-48.0 [facility] Comment on above: Performed By: #### T SH, BMP #### [facility] [address] [place] [address] Dr. Tasha Dodson Hemoglobin (Bld) [Mass/Vol] 13.1 g/dL Normal 12.0-16.0 [facility] Comment on above: Performed By: #### T SH, BMP #### [facility] [address] [place] [address] Dr. Tasha Dodson IG # 0.07 10e3/ul Critically high 0.00-0.03 [facility] Comment on above: Performed By: #### T SH, BMP #### [facility] [address] [address] [address] Tasha Dodson IG % 0.6 % Critically high 0.0-0.5 [facility] Comment on above: Performed By: #### T SH, BMP #### [facility] [address] [address] [address] Tasha Dodson LYMPH # 2.5 103/ul Normal 1.2-3.8 [facility] Comment on above: Performed By: #### T SH, BMP #### [facility] [address] [address] [address] Tasha Dodson Lymphocytes/100 WBC (Bld) 22.9 % Normal 20.5-60.0 [facility] Comment on above: Performed By: #### T SH, BMP #### [facility] [address] [address] [address] Tasha Dodson MANUAL DIFF REQ NO Normal [facility] Comment on above: Performed By: #### T SH, BMP #### [facility] [address] [address] [address] Tasha Dodson MCH (RBC) [Entitic mass] 30.7 pg Normal 26.7-34.0 [facility] Comment on above: Performed By: #### T SH, BMP #### [facility] [address] [address] [address] Tasha Dodson MCHC (RBC) [Mass/Vol] 33.2 g/dL Normal 29.9-35.2 [facility] Comment on above: Performed By: #### T SH, BMP #### [facility] [address] [address] [address] Tasha Dodson MCV (RBC) [Entitic vol] 92.5 fL Normal 81.0-99.0 [facility] Comment on above: Performed By: #### T SH, BMP #### [facility] [address] [address] [address] Tasha Dodson MONO # 0.8 103/ul Normal 0.3-0.8 [facility] Comment on above: Performed By: #### T SH, BMP #### [facility] [address] [address] [address] Tasha Dodson Monocytes/100 WBC (Bld) 7.0 % Normal 1.7-12.0 [facility] Comment on above: Performed By: #### T SH, BMP #### [facility] [address] [place] [address] Dr. Tasha Dodson NEUT # 7.2 103/ul Critically high 1.4-6.5 [facility] Comment on above: Performed By: #### T SH, BMP #### [facility] [address] [place] [address] Dr. Tasha Dodson Neutrophils/100 WBC (Bld) 65.9 % Normal 43.0-75.0 [facility] Comment on above: Performed By: #### T SH, BMP #### [facility] [address] [place] [address] Dr. Tasha Dodson Platelet mean volume (Bld) [Entitic vol] 8.0 fL Critically low 9.5-13.5 [facility] Comment on above: Performed By: #### T SH, BMP #### [facility] [address] [place] [address] Dr. Tasha Dodson PLT 449 103/ul Normal 150-450 [facility] Comment on above: Performed By: #### T SH, BMP #### [facility] [address] [place] [address] Dr. Tasha Dodson RBC 4.27 106/ul Normal 4.20-5.40 [facility] Comment on above: Performed By: #### T SH, BMP #### [facility] [address] [place] [address] Dr. Tasha Dodson WBC 10.9 103/ul Normal 4.0-11.0 [facility] Comment on above: Performed By: #### T SH, BMP #### [facility] [address] [place] [address] Dr. Tasha Dodson FREE THYROXINE INDEX T7on FTI 3.67 Normal 1.30-4.50 [facility] Comment on above: Performed By: #### T SH, BMP #### [facility] [address] [place] [address] Dr. Tasha Dodson T3U 36.0 % Normal 30.0-39.0 [facility] Comment on above: Performed By: #### T SH, BMP #### [facility] [address] [place] [address] Dr. Tasha Dodson T4 [Mass/Vol] 10.20 ug/dL Normal 4.80-13.90 [facility] Comment on above: Performed By: #### T SH, BMP #### [facility] [address] [place] [address] Dr. Tasha Dodson PROF CHEM 8 (BAS METB)on Anion gap [Moles/Vol] 13.8 mmol/L Normal [facility] Comment on above: Performed By: #### T SH, BMP #### [facility] [address] [place] [address] Dr. Tasha Dodson Calcium [Mass/Vol] 9.8 mg/dL Normal 8.5-10.1 [facility] Comment on above: Performed By: #### T SH, BMP #### [facility] [address] [place] [address] Dr. Tasha Dodson Chloride [Moles/Vol] 95 mmol/L Critically low 98-107 [facility] Comment on above: Performed By: #### T SH, BMP #### [facility] [address] [place] [address] Dr. Tasha Dodson CO2 [Moles/Vol] 30.5 mmol/L Normal 21.0-32.0 [facility] Comment on above: Performed By: #### T SH, BMP #### [facility] [address] [place] [address] Dr. Tasha Dodson Creatinine [Mass/Vol] 0.78 mg/dL Normal 0.55-1.02 [facility] Comment on above: Performed By: #### T SH, BMP #### [facility] [address] [place] [address] Dr. Tasha Dodson EGFR-AF KAZAKH >60 Normal >=60 [facility] Comment on above: Performed By: #### T SH, BMP #### [facility] [address] [place] [address] Dr. Tasha Dodson EGFR-NON AF KAZAKH >60 Normal >=60 [facility] Comment on above: Performed By: #### T SH, BMP #### [facility] [address] [place] [address] Dr. Tasha Dodson Glucose [Mass/Vol] 108 mg/dL Critically high 74-106 [facility] Comment on above: Performed By: #### T SH, BMP #### [facility] [address] [place] [address] Dr. Tasha Dodson Potassium [Moles/Vol] 3.3 mmol/L Critically low 3.5-5.1 [facility] Comment on above: Performed By: #### T SH, BMP #### [facility] [address] [place] [address] Dr. Tasha Dodson Sodium [Moles/Vol] 136 mmol/L Normal 136-145 [facility] Comment on above: Performed By: #### T SH, BMP #### [facility] [address] [place] [address] Dr. Tasha Dodson Urea nitrogen [Mass/Vol] 11.0 mg/dL Normal 7.0-18.0 [facility] Comment on above: Performed By: #### T SH, BMP #### [facility] [address] [place] [address] Dr. Tasha Dodson Urea nitrogen/Creatinine [Mass ratio] 14.1 mg/mg Normal [facility] Comment on above: Performed By: #### T SH, BMP #### [facility] [facility] [address] [place] [address] Dr. Tasha Dodson TSHon 06-13-2022 TSH 2.583 uIU/mL Normal 0.358-3.740 [facility] Comment on above: Performed By: #### T SH, BMP #### [facility] [address] [place] [address] Dr. Tasha Dodson UA (CLEAN/CATCH) TOMATO GRADER/MICRO I F IND.on 06-13-2022 Bilirubin Ql (U) Negative Normal NEGATIVE [facility] Comment on above: Performed By: #### T SH, BMP #### [facility] [address] [place] [address] Dr. Tasha Dodson Clarity (U) CLEAR Normal CLEAR [facility] Comment on above: Performed By: #### T SH, BMP #### [facility] [address] [place] [address] Dr. Tasha Dodson Color (U) LT. YELLOW Normal YELLOW [facility] Comment on above: Performed By: #### T SH, BMP #### [facility] [address] [place] [address] Dr. Tasha Dodson Glucose Ql (U) Negative Normal NEGATIVE [facility] Comment on above: Performed By: #### T SH, BMP #### [facility] [address] [place] [address] Dr. Tasha Dodson Hemoglobin Ql (U) Negative Normal NEGATIVE [facility] Comment on above: Performed By: #### T SH, BMP #### [facility] [address] [place] [address] Dr. Tasha Dodson Ketones Ql (U) Negative Normal NEGATIVE [facility] Comment on above: Performed By: #### T SH, BMP #### [facility] [address] [place] [address] Dr. Tasha Dodson LEUKOCYTES Negative Normal NEGATIVE [facility] Comment on above: Performed By: #### T SH, BMP #### [facility] [address] [place] [address] Dr. Tasha Dodson Nitrite Ql (U) Negative Normal NEGATIVE [facility] Comment on above: Performed By: #### T SH, BMP #### [facility] [address] [place] [address] Dr. Tasha Dodson pH (U) 7.0 [pH] Normal 5-9 [facility] Comment on above: Performed By: #### T SH, BMP #### [facility] [address] [place] [address] Dr. Tasha Dodson SPEC GRAVITY 1.010 Normal 1.005-<=1.0 25 [facility] Comment on above: Performed By: #### T SH, BMP #### [facility] [address] [place] [address] Dr. Tasha Dodson UA PROTEIN Negative Normal NEGATIVE/ TRACE [facility] Comment on above: Performed By: #### T SH, BMP #### [facility] [address] [place] [address] Dr. Tasha Dodson UR MICRO IND NOT INDICATED Normal [facility] Comment on above: Performed By: #### T SH, BMP #### [facility] [address] [place] [address] Dr. Tasha Dodson Urobilinogen Qn (U) 0.2 {Juan'U}/dL Normal 0.2 - 1. 0 [facility] Comment on above: Performed By: #### T JESI, BMP #### [facility] [address] [place] [address] Dr. Tasha Dodson ECHOCARDIO M/2D COMPLETEon 0 04-18-2022 ECHOCARDIO M/2D COMPLETE Patient: HIRAM MADRDI Exam Date: 04/18/2022 : 1935 Gender:F Ordering : DR VALERIE DARDEN M.D. Admission #: [id number] Family : DR ADDY DANIELS . Order #: [id number] CLICK HERE TO VIEW EXAM ECHOCARDIOGRAM REPORT [...] Barragan M.D. on 04/19/2022 at 18:55 Normal [facility] Office Visiton 04-04-2022 Follow-up visit [id number] Hiram Madrid 1935 F Date Provider Department Center 04/04/2022 Yazmin-VALERIE DARDEN [facility] Family History Problem Relation Age of Onset Hypertension Mother Lupus Mother Coronary artery disease Mother Heart attack Mother Hypertension Father Aneurysm Father Coronary artery disease Father Hypertension Sister Lupus Sister Family Status - Relation Status Age at Mother Father Sister Level of Service:57718 SD OFFICE/OUTPATIENT ESTABLISHED MOD MDM 30-39 MIN Reason for Visit and Comments: Hyperlipidemia [182] Hypertension [081992] carotid artery stenosis [Other] 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 Tasha Dodson Basophils/100 WBC (Bld) 0.6 % Normal 0.2-2.0 T [facility] Comment on above: Performed By: #### C BC #### [facility] [address] [address] [address] Tasha Dodson EO # 0.1 103/ul Normal 0.0-0.7 [facility] Comment on above: Performed By: #### C BC #### [facility] [address] [place] [address] Dr. Tasha Dodson Eosinophils/100 WBC (Bld) 0.9 % Normal 0.9-7.0 [facility] Comment on above: Performed By: #### C BC #### [facility] [address] [place] [address] Dr. Tasha Dodson Erythrocyte distribution width (RBC) [Ratio] 13.0 % Normal 11.0-15.0 [facility] Comment on above: Performed By: #### C BC #### [facility] [address] [place] [address] Dr. Tasha Dodson Hematocrit (Bld) [Volume fraction] 38.5 % Normal 36.0-48.0 [facility] Comment on above: Performed By: #### C BC #### [facility] [address] [place] [address] Dr. Tasha Dodson Hemoglobin (Bld) [Mass/Vol] 13.4 g/dL Normal 12.0-16.0 [facility] Comment on above: Performed By: #### C BC #### [facility] [address] [place] [address] Dr. Tasha Dodson IG # 0.07 10e3/ul Critically high 0.00-0.03 [facility] Comment on above: Performed By: #### C BC #### [facility] [address] [place] [address] Dr. Tasha Dodson IG % 0.5 % Normal 0.0-0.5 [facility] Comment on above: Performed By: #### C BC #### [facility] [address] [place] [address] Dr. Tasha Dodson LYMPH # 2.8 103/ul Normal 1.2-3.8 [facility] Comment on above: Performed By: #### C BC #### [facility] [address] [place] [address] Dr. Tasha Dodson Lymphocytes/100 WBC (Bld) 20.5 % Normal 20.5-60.0 [facility] Comment on above: Performed By: #### C BC #### [facility] [address] [place] [address] Dr. Tasha Dodson MANUAL DIFF REQ NO Normal [facility] Comment on above: Performed By: #### C BC #### [facility] [address] [place] [address] Dr. Tasha Dodson MCH (RBC) [Entitic mass] 30.7 pg Normal 26.7-34.0 [facility] Comment on above: Performed By: #### C BC #### [facility] [address] [place] [address] Dr. Tasha Dodson MCHC (RBC) [Mass/Vol] 34.8 g/dL Normal 29.9-35.2 [facility] Comment on above: Performed By: #### C BC #### [facility] [address] [place] [address] Dr. Tasha Dodson MCV (RBC) [Entitic vol] 88.3 fL Normal 81.0-99.0 [facility] Comment on above: Performed By: #### C BC #### [facility] [address] [place] [address] Dr. Tasha Dodson MONO # 1.0 103/ul Critically high 0.3-0.8 [facility] Comment on above: Performed By: #### C BC #### [facility] [address] [place] [address] Dr. Tasha Dodson Monocytes/100 WBC (Bld) 7.4 % Normal 1.7-12.0 [facility] Comment on above: Performed By: #### C BC #### [facility] [address] [place] [address] Dr. Tasha Dodson NEUT # 9.5 103/ul Critically high 1.4-6.5 [facility] Comment on above: Performed By: #### C BC #### [facility] [address] [place] [address] Dr. Tasha Dodson Neutrophils/100 WBC (Bld) 70.1 % Normal 43.0-75.0 [facility] Comment on above: Performed By: #### C BC #### [facility] [address] [address] [address] Tasha Dodson Platelet mean volume (Bld) [Entitic vol] 8.0 fL Critically low 9.5-13.5 [facility] Comment on above: Performed By: #### C BC #### [facility] [address] [place] [address] Dr. Tasha Dodson PLT 492 103/ul Critically high 150-450 [facility] Comment on above: Performed By: #### C BC #### [facility] [address] [place] [address] Dr. Tasha Dodson RBC 4.36 106/ul Normal 4.20-5.40 [facility] Comment on above: Performed By: #### C BC #### [facility] [address] [place] [address] Dr. Tasha Dodson WBC 13.5 103/ul Critically high 4.0-11.0 [facility] Comment on above: Performed By: #### C BC #### [facility] [address] [place] [address] Dr. Tasha Dodson PROF 14(COMP METB)on 01-04- 022 Albumin [Mass/Vol] 3.8 g/dL Normal 3.4-5.0 [facility] Comment on above: Performed By: #### T SH, BMP #### [facility] [address] [place] [address] Dr. Tasha Dodson Albumin/Globulin [Mass ratio] 0.9 {ratio} Normal [facility] Comment on above: Performed By: #### T SH, BMP #### [facility] [address] [place] [address] Dr. Tasha Dodson ALP [Catalytic activity/Vol] 60 U/L Normal 46-116 [facility] Comment on above: Performed By: #### T SH, BMP #### [facility] [address] [place] [address] Dr. Tasha Dodson ALT [Catalytic activity/Vol] 26 U/L Normal 14-59 [facility] Comment on above: Performed By: #### T SH, BMP #### [facility] [address] [address] [address] Tasha Dodson Anion gap [Moles/Vol] 8.4 mmol/L Normal [facility] Comment on above: Performed By: #### T SH, BMP #### [facility] [address] [address] [address] Tasha Dodson AST [Catalytic activity/Vol] 19 U/L Normal 15-37 [facility] Comment on above: Performed By: #### T SH, BMP #### [facility] [address] [place] [address] Dr. Tasha Dodson Bilirubin [Mass/Vol] 0.4 mg/dL Normal 0.2-1.0 [facility] Comment on above: Performed By: #### T SH, BMP #### [facility] [address] [place] [address] Dr. Tasha Dodson Calcium [Mass/Vol] 10.1 mg/dL Normal 8.5-10.1 [facility] Comment on above: Performed By: #### T SH, BMP #### [facility] [address] [place] [address] Dr. Tasha Dodson Chloride [Moles/Vol] 92 mmol/L Critically low 98-107 [facility] Comment on above: Performed By: #### T SH, BMP #### [facility] [address] [place] [address] Dr. Tasha Dodson CO2 [Moles/Vol] 33.8 mmol/L Critically high 21.0-32.0 [facility] Comment on above: Performed By: #### T SH, BMP #### [facility] [address] [place] [address] Dr. Tasha Dodson Creatinine [Mass/Vol] 0.67 mg/dL Normal 0.55-1.02 [facility] Comment on above: Performed By: #### T SH, BMP #### [facility] [address] [place] [address] Dr. Tasha Dodson EGFR-AF KAZAKH >60 Normal >=60 [facility] Comment on above: Performed By: #### T SH, BMP #### [facility] [address] [address] [address] Tasha Dodson EGFR-NON AF KAZAKH >60 Normal >=60 [facility] Comment on above: Performed By: #### T SH, BMP #### [facility] [address] [address] [address] Tasha Dodson Globulin (S) [Mass/Vol] 4.1 g/dL Normal [facility] Comment on above: Performed By: #### T SH, BMP #### [facility] [address] [place] [address] Dr. Tasha Dodson Glucose [Mass/Vol] 106 mg/dL Normal 74-106 [facility] Comment on above: Performed By: #### T SH, BMP #### [facility] [address] [place] [address] Dr. Tasha Dodson Potassium [Moles/Vol] 3.2 mmol/L Critically low 3.5-5.1 [facility] Comment on above: Performed By: #### T JESI, BMP #### [facility] [address] [place] [address] Dr. Tasha Dodson Protein [Mass/Vol] 7.9 g/dL Normal 6.4-8.2 [facility] Comment on above: Performed By: #### T JESI, BMP #### [facility] [address] [place] [address] Dr. Tasha Dodson Sodium [Moles/Vol] 131 mmol/L Critically low 136-145 [facility] Comment on above: Performed By: #### T SH, BMP #### [facility] [address] [place] [address] Dr. Tasha Dodson Urea nitrogen [Mass/Vol] 10.0 mg/dL Normal 7.0-18.0 [facility] Comment on above: Performed By: #### T SH, BMP #### [facility] [address] [place] [address] Dr. Tasha Dodson Urea nitrogen/Creatinine [Mass ratio] 14.9 mg/mg Normal [facility] Comment on above: Performed By: #### T JESI, BMP #### [facility] [address] [place] [address] Dr. Tasha Dodson CBC AUTO DIFFon 12-29-2021 BASO # 0.1 103/ul Normal 0.0-0.1 [facility] Comment on above: Performed By: #### C BC #### [facility] [address] [place] [address] Dr. Tasha Dodson Basophils/100 WBC (Bld) 0.5 % Normal 0.2-2.0 [facility] Comment on above: Performed By: #### C BC #### [facility] [address] [place] [address] Dr. Tasha Dodson EO # 0.1 103/ul Normal 0.0-0.7 [facility] Comment on above: Performed By: #### C BC #### [facility] [address] [place] [address] Dr. Tasha Dodson Eosinophils/100 WBC (Bld) 0.4 % Critically low 0.9-7.0 [facility] Comment on above: Performed By: #### C BC #### [facility] [address] [place] [address] Dr. Tasha Dodson Erythrocyte distribution width (RBC) [Ratio] 13.0 % Normal 11.0-15.0 [facility] Comment on above: Performed By: #### C BC #### [facility] [address] [place] [address] Dr. Tasha Dodson Hematocrit (Bld) [Volume fraction] 34.0 % Critically low 36.0-48.0 [facility] Comment on above: Performed By: #### C BC #### [facility] [address] [place] [address] Dr. Tasha Dodson Hemoglobin (Bld) [Mass/Vol] 12.0 g/dL Normal 12.0-16.0 [facility] Comment on above: Performed By: #### C BC #### [facility] [address] [place] [address] Dr. Tasha Dodson IG # 0.06 10e3/ul Critically high 0.00-0.03 [facility] Comment on above: Performed By: #### C BC #### [facility] [address] [address] [address] Tasha Dodson IG % 0.4 % Normal 0.0-0.5 [facility] Comment on above: Performed By: #### C BC #### [facility] [address] [place] [address] Dr. Tasha Dodson LYMPH # 2.5 103/ul Normal 1.2-3.8 [facility] Comment on above: Performed By: #### C BC #### [facility] [address] [place] [address] Dr. Tasha Dodson Lymphocytes/100 WBC (Bld) 17.4 % Critically low 20.5-60.0 [facility] Comment on above: Performed By: #### C BC #### [facility] [address] [place] [address] Dr. Tasha Dodson MANUAL DIFF REQ NO Normal [facility] Comment on above: Performed By: #### C BC #### [facility] [address] [place] [address] Dr. Tasha Dodson MCH (RBC) [Entitic mass] 31.0 pg Normal 26.7-34.0 [facility] Comment on above: Performed By: #### C BC #### [facility] [address] [place] [address] Dr. Tasha Dodson MCHC (RBC) [Mass/Vol] 35.3 g/dL Critically high 29.9-35.2 [facility] Comment on above: Performed By: #### C BC #### [facility] [address] [place] [address] Dr. Tasha Dodson MCV (RBC) [Entitic vol] 87.9 fL Normal 81.0-99.0 [facility] Comment on above: Performed By: #### C BC #### [facility] [address] [place] [address] Dr. Tasha Dodson MONO # 1.0 103/ul Critically high 0.3-0.8 [facility] Comment on above: Performed By: #### C BC #### [facility] [address] [address] [address] Tasha Dodson Monocytes/100 WBC (Bld) 6.9 % Normal 1.7-12.0 [facility] Comment on above: Performed By: #### C BC #### [facility] [address] [address] [address] Tasha Dodson NEUT # 10.8 103/ul Critically high 1.4-6.5 [facility] Comment on above: Performed By: #### C BC #### [facility] [address] [address] [address] Tasha Dodson Neutrophils/100 WBC (Bld) 74.4 % Normal 43.0-75.0 [facility] Comment on above: Performed By: #### C BC #### [facility] [address] [place] [address] Dr. Tasha Dodson Platelet mean volume (Bld) [Entitic vol] 8.4 fL Critically low 9.5-13.5 [facility] Comment on above: Performed By: #### C BC #### [facility] [address] [place] [address] Dr. Tasha Dodson PLT 370 103/ul Normal 150-450 [facility] Comment on above: Performed By: #### C BC #### [facility] [address] [place] [address] Dr. Tasha Dodson RBC 3.87 106/ul Critically low 4.20-5.40 [facility] Comment on above: Performed By: #### C BC #### [facility] [address] [place] [address] Dr. Tasha Dodson WBC 14.5 103/ul Critically high 4.0-11.0 [facility] Comment on above: Performed By: #### C BC #### [facility] [address] [place] [address] Dr. Tasha Dodson PROF 14(COMP METB)on 022 Albumin [Mass/Vol] 2.8 g/dL Critically low 3.4-5.0 [facility] Comment on above: Performed By: #### T SH, BMP #### [facility] [address] [place] [address] Dr. Tasha Dodson Albumin/Globulin [Mass ratio] 0.9 {ratio} Normal [facility] Comment on above: Performed By: #### T SH, BMP #### [facility] [address] [place] [address] Dr. Tasha Dodson ALP [Catalytic activity/Vol] 51 U/L Normal 46-116 [facility] Comment on above: Performed By: #### T SH, BMP #### [facility] [address] [address] [address] Tasha Dodson ALT [Catalytic activity/Vol] 15 U/L Normal 14-59 [facility] Comment on above: Performed By: #### T SH, BMP #### [facility] [address] [place] [address] Dr. Tasha Dodson Anion gap [Moles/Vol] 9.7 mmol/L Normal [facility] Comment on above: Performed By: #### T SH, BMP #### [facility] [address] [place] [address] Dr. Tasha Dodson AST [Catalytic activity/Vol] 15 U/L Normal 15-37 [facility] Comment on above: Performed By: #### T SH, BMP #### [facility] [address] [place] [address] Dr. Tasha Dodson Bilirubin [Mass/Vol] 0.4 mg/dL Normal 0.2-1.0 [facility] Comment on above: Performed By: #### T SH, BMP #### [facility] [address] [place] [address] Dr. Tasha Dodson Calcium [Mass/Vol] 8.6 mg/dL Normal 8.5-10.1 [facility] Comment on above: Performed By: #### T SH, BMP #### [facility] [address] [place] [address] Dr. Tasha Dodson Chloride [Moles/Vol] 97 mmol/L Critically low 98-107 [facility] Comment on above: Performed By: #### T SH, BMP #### [facility] [address] [address] [address] Tasha Dodson CO2 [Moles/Vol] 25.8 mmol/L Normal 21.0-32.0 [facility] Comment on above: Performed By: #### T SH, BMP #### [facility] [address] [address] [address] Tasha Dodson Creatinine [Mass/Vol] 0.52 mg/dL Critically low 0.55-1.02 [facility] Comment on above: Performed By: #### T SH, BMP #### [facility] [address] [place] [address] Dr. Tasha Dodson EGFR-AF KAZAKH >60 Normal >=60 [facility] Comment on above: Performed By: #### T SH, BMP #### [facility] [address] [place] [address] Dr. Tasha Dodson EGFR-NON AF KAZAKH >60 Normal >=60 [facility] Comment on above: Performed By: #### T SH, BMP #### [facility] [address] [place] [address] Dr. Tasha Dodson Globulin (S) [Mass/Vol] 3.2 g/dL Normal [facility] Comment on above: Performed By: #### T SH, BMP #### [facility] [address] [place] [address] Dr. Tasha Dodson Glucose [Mass/Vol] 117 mg/dL Critically high 74-106 [facility] Comment on above: Performed By: #### T SH, BMP #### [facility] [address] [place] [address] Dr. Tasha Dodson Potassium [Moles/Vol] 3.5 mmol/L Normal 3.5-5.1 [facility] Comment on above: Performed By: #### T SH, BMP #### [facility] [address] [place] [address] Dr. Tasha Dodson Protein [Mass/Vol] 6.0 g/dL Critically low 6.4-8.2 [facility] Comment on above: Performed By: #### T SH, BMP #### [facility] [address] [place] [address] Dr. Tasha Dodson Sodium [Moles/Vol] 129 mmol/L Critically low 136-145 [facility] Comment on above: Performed By: #### T JESI, BMP #### [facility] [address] [place] [address] Dr. Tasha Dodson Urea nitrogen [Mass/Vol] 4.0 mg/dL Critically low 7.0-18.0 [facility] Comment on above: Performed By: #### T JESI, BMP #### [facility] [address] [place] [address] Dr. Tasha Dodson Urea nitrogen/Creatinine [Mass ratio] 7.7 mg/mg Normal [facility] Comment on above: Performed By: #### T JESI, BMP #### [facility] [address] [place] [address] Dr. Tasha Dodson CBC AUTO DIFFon 12-28-2021 BASO # 0.1 103/ul Normal 0.0-0.1 [facility] Comment on above: Performed By: #### C BC #### [facility] [address] [place] [address] Dr. Tasha Dodson Basophils/100 WBC (Bld) 0.4 % Normal 0.2-2.0 [facility] Comment on above: Performed By: #### C BC #### [facility] [address] [place] [address] Dr. Tasha Dodson EO # 0.1 103/ul Normal 0.0-0.7 [facility] Comment on above: Performed By: #### C BC #### [facility] [address] [place] [address] Dr. Tasha Dodson Eosinophils/100 WBC (Bld) 0.4 % Critically low 0.9-7.0 [facility] Comment on above: Performed By: #### C BC #### [facility] [address] [place] [address] Dr. Tasha Dodson Erythrocyte distribution width (RBC) [Ratio] 12.9 % Normal 11.0-15.0 [facility] Comment on above: Performed By: #### C BC #### [facility] [address] [place] [address] Dr. Tasha Dodson Hematocrit (Bld) [Volume fraction] 34.2 % Critically low 36.0-48.0 [facility] Comment on above: Performed By: #### C BC #### [facility] [address] [place] [address] Dr. Tasha Dodson Hemoglobin (Bld) [Mass/Vol] 12.4 g/dL Normal 12.0-16.0 [facility] Comment on above: Performed By: #### C BC #### [facility] [address] [place] [address] Dr. Tasha Dodson IG # 0.09 10e3/ul Critically high 0.00-0.03 [facility] Comment on above: Performed By: #### C BC #### [facility] [address] [place] [address] Dr. Tasha Dodson IG % 0.6 % Critically high 0.0-0.5 [facility] Comment on above: Performed By: #### C BC #### [facility] [address] [place] [address] Dr. Tasha Dodson LYMPH # 2.2 103/ul Normal 1.2-3.8 [facility] Comment on above: Performed By: #### C BC #### [facility] [address] [place] [address] Dr. Tasha Dodson Lymphocytes/100 WBC (Bld) 13.6 % Critically low 20.5-60.0 [facility] Comment on above: Performed By: #### C BC #### [facility] [address] [place] [address] Dr. Tasha Dodson MANUAL DIFF REQ NO Normal [facility] Comment on above: Performed By: #### C BC #### [facility] [address] [place] [address] Dr. Tasha Dodson MCH (RBC) [Entitic mass] 31.2 pg Normal 26.7-34.0 [facility] Comment on above: Performed By: #### C BC #### [facility] [address] [address] [address] Tasha Dodson MCHC (RBC) [Mass/Vol] 36.3 g/dL Critically high 29.9-35.2 [facility] Comment on above: Performed By: #### C BC #### [facility] [address] [address] [address] Tasha Dodson MCV (RBC) [Entitic vol] 85.9 fL Normal 81.0-99.0 [facility] Comment on above: Performed By: #### C BC #### [facility] [address] [address] [address] Tasha Dodson MONO # 1.3 103/ul Critically high 0.3-0.8 [facility] Comment on above: Performed By: #### C BC #### [facility] [address] [place] [address] Dr. Tasha Dodson Monocytes/100 WBC (Bld) 7.8 % Normal 1.7-12.0 [facility] Comment on above: Performed By: #### C BC #### [facility] [address] [address] [address] Tasha Dodson NEUT # 12.4 103/ul Critically high 1.4-6.5 [facility] Comment on above: Performed By: #### C BC #### [facility] [address] [place] [address] Dr. Tasha Dodson Neutrophils/100 WBC (Bld) 77.2 % Critically high 43.0-75.0 [facility] Comment on above: Performed By: #### C BC #### [facility] [address] [address] [address] Tasha Dodson Platelet mean volume (Bld) [Entitic vol] 8.6 fL Critically low 9.5-13.5 [facility] Comment on above: Performed By: #### C BC #### [facility] [address] [place] [address] Dr. Tasha Dodson PLT 385 103/ul Normal 150-450 [facility] Comment on above: Performed By: #### C BC #### [facility] [address] [address] [address] Tasha Dodson RBC 3.98 106/ul Critically low 4.20-5.40 [facility] Comment on above: Performed By: #### C BC #### [facility] [address] [address] [address] Tasha Dodson WBC 16.1 103/ul Critically high 4.0-11.0 [facility] Comment on above: Performed By: #### C BC #### [facility] [address] [place] [address] Dr. Tasha Dodson PROF 14(COMP METB)on 022 Albumin [Mass/Vol] 3.2 g/dL Critically low 3.4-5.0 [facility] Comment on above: Performed By: #### T SH, BMP #### [facility] [address] [place] [address] Dr. Tasha Dodson Albumin/Globulin [Mass ratio] 1.0 {ratio} Normal [facility] Comment on above: Performed By: #### T SH, BMP #### [facility] [address] [place] [address] Dr. Tasha Dodson ALP [Catalytic activity/Vol] 51 U/L Normal 46-116 [facility] Comment on above: Performed By: #### T SH, BMP #### [facility] [address] [place] [address] Dr. Tasha Dodson ALT [Catalytic activity/Vol] 17 U/L Normal 14-59 [facility] Comment on above: Performed By: #### T SH, BMP #### [facility] [address] [place] [address] Dr. Tasha Dodson Anion gap [Moles/Vol] 10.5 mmol/L Normal [facility] Comment on above: Performed By: #### T SH, BMP #### [facility] [address] [place] [address] Dr. Tasha Dodson AST [Catalytic activity/Vol] 18 U/L Normal 15-37 [facility] Comment on above: Performed By: #### T SH, BMP #### [facility] [address] [address] [address] Tasha Dodson Bilirubin [Mass/Vol] 0.4 mg/dL Normal 0.2-1.0 [facility] Comment on above: Performed By: #### T SH, BMP #### [facility] [address] [place] [address] Dr. Tasha Dodson Calcium [Mass/Vol] 8.3 mg/dL Critically low 8.5-10.1 [facility] Comment on above: Performed By: #### T SH, BMP #### [facility] [address] [place] [address] Dr. Tasha Dodson Chloride [Moles/Vol] 96 mmol/L Critically low 98-107 [facility] Comment on above: Performed By: #### T SH, BMP #### [facility] [address] [place] [address] Dr. Tasha Dodson CO2 [Moles/Vol] 24.5 mmol/L Normal 21.0-32.0 [facility] Comment on above: Performed By: #### T SH, BMP #### [facility] [address] [place] [address] Dr. Tasha Dodson Creatinine [Mass/Vol] 0.54 mg/dL Critically low 0.55-1.02 [facility] Comment on above: Performed By: #### T SH, BMP #### [facility] [address] [place] [address] Dr. Tasha Dodson EGFR-AF KAZAKH >60 Normal >=60 [facility] Comment on above: Performed By: #### T SH, BMP #### [facility] [address] [place] [address] Dr. Tasha Dodson EGFR-NON AF KAZAKH >60 Normal >=60 [facility] Comment on above: Performed By: #### T SH, BMP #### [facility] [address] [place] [address] Dr. Tasha Dodson Globulin (S) [Mass/Vol] 3.1 g/dL Normal [facility] Comment on above: Performed By: #### T SH, BMP #### [facility] [address] [place] [address] Dr. Tasha Dodson Glucose [Mass/Vol] 123 mg/dL Critically high 74-106 [facility] Comment on above: Performed By: #### T , BMP #### [facility] [address] [place] [address] Dr. Tasha Dodson Potassium [Moles/Vol] 3.0 mmol/L Critically low 3.5-5.1 [facility] Comment on above: Performed By: #### T , BMP #### [facility] [address] [place] [address] Dr. Tasha Dodson Protein [Mass/Vol] 6.3 g/dL Critically low 6.4-8.2 [facility] Comment on above: Performed By: #### T , BMP #### [facility] [address] [place] [address] Dr. Tasha Dodson Sodium [Moles/Vol] 128 mmol/L Critically low 136-145 [facility] Comment on above: Performed By: #### T , BMP #### [facility] [address] [place] [address] Dr. Tasha Dodson Urea nitrogen [Mass/Vol] 5.0 mg/dL Critically low 7.0-18.0 [facility] Comment on above: Performed By: #### T , BMP #### [facility] [address] [place] [address] Dr. Tasha Dodson Urea nitrogen/Creatinine [Mass ratio] 9.3 mg/mg Normal [facility] Comment on above: Performed By: #### T , BMP #### [facility] [address] [place] [address] Dr. Tasha Dodson SODIUM RANDOM URINEon 2021 Sodium (U) [Moles/Vol] 135 mmol/L Critically high 30-90 [facility] Comment on above: Performed By: #### C BC #### [facility] [address] [place] [address] Dr. Tasha Dodson CBC AUTO DIFFon 12-27-2021 BASO # 0.0 103/ul Normal 0.0-0.1 [facility] Comment on above: Performed By: #### C BC #### [facility] [address] [place] [address] Dr. Tasha Dodson Basophils/100 WBC (Bld) 0.2 % Normal 0.2-2.0 [facility] Comment on above: Performed By: #### C BC #### [facility] [address] [place] [address] Dr. Tasha Dodson EO # 0.3 103/ul Normal 0.0-0.7 [facility] Comment on above: Performed By: #### C BC #### [facility] [address] [place] [address] Dr. Tasha Dodson Eosinophils/100 WBC (Bld) 2.3 % Normal 0.9-7.0 [facility] Comment on above: Performed By: #### C BC #### [facility] [address] [place] [address] Dr. Tasha Dodson Erythrocyte distribution width (RBC) [Ratio] 12.4 % Normal 11.0-15.0 [facility] Comment on above: Performed By: #### C BC #### [facility] [address] [place] [address] Dr. Tasha Dodson Hematocrit (Bld) [Volume fraction] 35.4 % Critically low 36.0-48.0 [facility] Comment on above: Performed By: #### C BC #### [facility] [address] [place] [address] Dr. Tasha Dodson Hemoglobin (Bld) [Mass/Vol] 12.9 g/dL Normal 12.0-16.0 [facility] Comment on above: Performed By: #### C BC #### [facility] [address] [place] [address] Dr. Tasha Dodson IG # 0.06 10e3/ul Critically high 0.00-0.03 [facility] Comment on above: Performed By: #### C BC #### [facility] [address] [place] [address] Dr. Tasha Dodson IG % 0.5 % Normal 0.0-0.5 [facility] Comment on above: Performed By: #### C BC #### [facility] [address] [address] [address] Tasha Dodson LYMPH # 2.0 103/ul Normal 1.2-3.8 [facility] Comment on above: Performed By: #### C BC #### [facility] [address] [address] [address] Tasha Dodson Lymphocytes/100 WBC (Bld) 15.7 % Critically low 20.5-60.0 [facility] Comment on above: Performed By: #### C BC #### [facility] [address] [place] [address] Dr. Tasha Dodson MANUAL DIFF REQ NO Normal [facility] Comment on above: Performed By: #### C BC #### [facility] [address] [place] [address] Dr. Tasha Dodson MCH (RBC) [Entitic mass] 31.0 pg Normal 26.7-34.0 [facility] Comment on above: Performed By: #### C BC #### [facility] [address] [place] [address] Dr. Tasha Dodson MCHC (RBC) [Mass/Vol] 36.4 g/dL Critically high 29.9-35.2 [facility] Comment on above: Performed By: #### C BC #### [facility] [address] [place] [address] Dr. Tasha Dodson MCV (RBC) [Entitic vol] 85.1 fL Normal 81.0-99.0 [facility] Comment on above: Performed By: #### C BC #### [facility] [address] [place] [address] Dr. Tasha Dodson MONO # 1.1 103/ul Critically high 0.3-0.8 [facility] Comment on above: Performed By: #### C BC #### [facility] [address] [place] [address] Dr. Tasha Dodson Monocytes/100 WBC (Bld) 8.3 % Normal 1.7-12.0 [facility] Comment on above: Performed By: #### C BC #### [facility] [address] [address] [address] Tasha Dodson NEUT # 9.5 103/ul Critically high 1.4-6.5 [facility] Comment on above: Performed By: #### C BC #### [facility] [address] Tasha Dodson Neutrophils/100 WBC (Bld) 73.0 % Normal 43.0-75.0 [facility] Comment on above: Performed By: #### C BC #### [facility] [address] [address] [address] Tasha Dodson Platelet mean volume (Bld) [Entitic vol] 8.3 fL Critically low 9.5-13.5 [facility] Comment on above: Performed By: #### C BC #### [facility] [address] [address] [address] Tasha Dodson PLT 408 103/ul Normal 150-450 [facility] Comment on above: Performed By: #### C BC #### [facility] [address] [address] [address] Tasha Dodson RBC 4.16 106/ul Critically low 4.20-5.[address] [facility] Comment on above: Performed By: #### C BC #### [facility] [address] Tasha Dodson WBC 13.0 103/ul Critically high 4.0-11.0 [facility] Comment on above: Performed By: #### C BC #### [facility] [address] Tasha Dodson CULTURE SPUTUMon 12-27-2021 CULTURE SPUTUM Culture Observations : NORMAL RESPIRATORY AMADOU. Normal [facility] Comment on above: Performed By: #### C BC #### [facility] [address] [address] [address] Tasha Dodson PROF 14(COMP METB)on 022 Albumin [Mass/Vol] 3.4 g/dL Normal 3.4-5.0 [facility] Comment on above: Performed By: #### C MADM, LIPA, BNP, CMP #### [facility] [address] [place] [address] Dr. Tasha Dodson Albumin/Globulin [Mass ratio] 1.0 {ratio} Normal [facility] Comment on above: Performed By: #### C MADM, LIPA, BNP, CMP #### [facility] [address] [place] [address] Dr. Tasha Dodson ALP [Catalytic activity/Vol] 54 U/L Normal 46-116 [facility] Comment on above: Performed By: #### C MADM, LIPA, BNP, CMP #### [facility] [address] [place] [address] Dr. Tasha Dodson ALT [Catalytic activity/Vol] 20 U/L Normal 14-59 [facility] Comment on above: Performed By: #### C MADM, LIPA, BNP, CMP #### [facility] [address] [place] [address] Dr. Tasha Dodson Anion gap [Moles/Vol] 10.8 mmol/L Normal [facility] Comment on above: Performed By: #### C MADM, LIPA, BNP, CMP #### [facility] [address] [place] [address] Dr. Tasha Dodson AST [Catalytic activity/Vol] 19 U/L Normal 15-37 [facility] Comment on above: Performed By: #### C MADM, LIPA, BNP, CMP #### [facility] [address] [place] [address] Dr. Tasha Dodson Bilirubin [Mass/Vol] 0.5 mg/dL Normal 0.2-1.0 [facility] Comment on above: Performed By: #### C MADM, LIPA, BNP, CMP #### [facility] [address] [place] [address] Dr. Tasha Dodson Calcium [Mass/Vol] 8.3 mg/dL Critically low 8.5-10.1 [facility] Comment on above: Performed By: #### C MADM, LIPA, BNP, CMP #### [facility] [address] [address] [address] Tasha Dodson Chloride [Moles/Vol] 89 mmol/L Critically low 98-107 [facility] Comment on above: Performed By: #### C MADM, LIPA, BNP, CMP #### [facility] [address] [place] [address] Dr. Tasha Dodson CO2 [Moles/Vol] 27.0 mmol/L Normal 21.0-32.0 [facility] Comment on above: Performed By: #### C MADM, LIPA, BNP, CMP #### [facility] [address] [address] [address] Tasha Dodson Creatinine [Mass/Vol] 0.69 mg/dL Normal 0.55-1.02 [facility] Comment on above: Performed By: #### C MADM, LIPA, BNP, CMP #### [facility] [address] [place] [address] Dr. Tasha Dodson EGFR-AF KAZAKH >60 Normal >=60 [facility] Comment on above: Performed By: #### C MADM, LIPA, BNP, CMP #### [facility] [address] [place] [address] Dr. Tasha Dodson EGFR-NON AF KAZAKH >60 Normal >=60 [facility] Comment on above: Performed By: #### C MADM, LIPA, BNP, CMP #### [facility] [address] [address] [address] Tasha Dodson Globulin (S) [Mass/Vol] 3.3 g/dL Normal [facility] Comment on above: Performed By: #### C MADM, LIPA, BNP, CMP #### [facility] [address] [place] [address] Dr. Tasha Dodson Glucose [Mass/Vol] 115 mg/dL Critically high 74-106 [facility] Comment on above: Performed By: #### C MADM, LIPA, BNP, CMP #### [facility] [address] [place] [address] Dr. Tasha Dodson Potassium [Moles/Vol] 2.7 mmol/L Critically low 3.5-5.1 [facility] Comment on above: Result Comment: Test Repeated. Critical Value Verified Performed By: #### C MADM, LIPA, BNP, CMP #### [facility] [address] [address] [address] Tasha Dodson Protein [Mass/Vol] 6.7 g/dL Normal 6.4-8.2 [facility] Comment on above: Performed By: #### C MADM, LIPA, BNP, CMP #### [facility] [address] [address] [address] Tasha Dodson Sodium [Moles/Vol] 123 mmol/L Critically low 136-145 [facility] Comment on above: Result Comment: Test Repeated. Critical Value Verified Performed By: #### C MADM, LIPA, BNP, CMP #### [facility] [address] [address] [address] Tasha Dodson Urea nitrogen [Mass/Vol] 6.0 mg/dL Critically low 7.0-18.0 [facility] Comment on above: Performed By: #### C MADM, LIPA, BNP, CMP #### [facility] [address] [place] [address] Dr. Tasha Dodson Urea nitrogen/Creatinine [Mass ratio] 8.7 mg/mg Normal [facility] Comment on above: Performed By: #### C MADM, LIPA, BNP, CMP #### [facility] [address] [address] [address] Tasha Dodson SPUTUM GRAM STAINon 12-28-19 COMMENTS Normal [facility] Comment on above: Performed By: #### T SH, BMP #### [facility] [address] [address] [address] Tasha Dodson DIPHTHEROIDS Normal [facility] Comment on above: Performed By: #### T SH, BMP #### [facility] [address] [place] [address] Dr. Tasha Dodson EPITHELIALS <25 Normal [facility] Comment on above: Performed By: #### T SH, BMP #### [facility] [address] [address] [address] Tasha Dodson FUNGAL ELEMENTS Normal [facility] Comment on above: Performed By: #### T SH, BMP #### [facility] [address] [address] [address] Tasha Dodson GRAM NEG BACILLI Normal [facility] Comment on above: Performed By: #### T SH, BMP #### [facility] [address] [address] [address] Tasha Dodson GRAM NEG DIPPLOCOCCI Normal [facility] Comment on above: Performed By: #### T SH, BMP #### [facility] [address] [address] [address] Tasha Dodson GRAM POS BACILLI Normal [facility] Comment on above: Performed By: #### T SH, BMP #### [facility] [address] [place] [address] Dr. Tasha Dodson GRAM POSITIVE COCCI MODERATE Normal [facility] Comment on above: Performed By: #### T SH, BMP #### [facility] [address] [place] [address] Dr. Tasha Dodson WBC (Bld) [#/Vol] 10*3/uL Normal [facility] Comment on above: Performed By: #### T SH, BMP #### [facility] [address] [place] [address] Dr. Tasha Dodson BNPon 12-26-2021 Natriuretic peptide B (Bld) [Mass/Vol] 148.0 pg/mL Normal <=1,800.0 [facility] Comment on above: Performed By: #### C MADM, LIPA, BNP, CMP #### [facility] [address] [place] [address] Dr. Tasha Dodson CARDIAC ANGELO ADMITon 022 CK [Catalytic activity/Vol] 139 U/L Normal 26-192 [facility] Comment on above: Performed By: #### C MADM, LIPA, BNP, CMP #### [facility] [address] [place] [address] Dr. Tasha Dodson CK.MB [Mass/Vol] 2.43 ng/mL Normal <=3.60 [facility] Comment on above: Performed By: #### C MADM, LIPA, BNP, CMP #### [facility] [address] [address] [address] Tasha Dodson HSTROP 12.2 pg/mL Normal 4.0-51.3 [facility] Comment on above: Result Comment: CUT- OFF POINTS HAVE BEEN ESTABLISHED BASED ON THE FOURTH UNIVERSAL DEFINITIONS OF MYOCARDIAL INFARCTION. THE UPPER REFERENCE LIMIT (URL) OF TROPONIN, DEFINED THE 99TH PERCENTILE OF cTnI DISTRIBUTION IN A REFERENCE POPULATION, HAS BEEN CONFIRMED THE DECISION THRESHOLD FOR [place] DIAGNOSIS. Performed By: #### C MADM, LIPA, BNP, CMP #### [facility] [address] [place] [address] Dr. Tasha Dodson ELIZABETH 110 ng/mL Critically high 9-[address] [facility] Comment on above: Performed By: #### C MADM, LIPA, BNP, CMP #### [facility] [address] [place] [address] Dr. Tasha Dodson CBC AUTO DIFFon 12-26-2021 BASO # 0.0 103/ul Normal 0.0-0.1 [facility] Comment on above: Performed By: #### C MADM, LIPA, BNP, CMP #### [facility] [address] [place] [address] Dr. Tasha Dodson Basophils/100 WBC (Bld) 0.3 % Normal 0.2-2.0 [facility] Comment on above: Performed By: #### C MADM, LIPA, BNP, CMP #### [facility] [address] [place] [address] Dr. Tasha Dodson EO # 0.1 103/ul Normal 0.0-0.7 [facility] Comment on above: Performed By: #### C MADM, LIPA, BNP, CMP #### [facility] [address] [place] [address] Dr. Tasha Dodson Eosinophils/100 WBC (Bld) 0.7 % Critically low 0.9-7.0 [facility] Comment on above: Performed By: #### C MADM, LIPA, BNP, CMP #### [facility] [address] [place] [address] Dr. Tasha Dodson Erythrocyte distribution width (RBC) [Ratio] 12.4 % Normal 11.0-15.0 [facility] Comment on above: Performed By: #### C MADM, LIPA, BNP, CMP #### [facility] [address] [place] [address] Dr. Tasha Dodson Hematocrit (Bld) [Volume fraction] 38.9 % Normal 36.0-48.0 [facility] Comment on above: Performed By: #### C MADM, LIPA, BNP, CMP #### [facility] [address] [place] [address] Dr. Tasha Dodson Hemoglobin (Bld) [Mass/Vol] 14.4 g/dL Normal 12.0-16.0 [facility] Comment on above: Performed By: #### C MADM, LIPA, BNP, CMP #### [facility] [address] [place] [address] Dr. Tasha Dodson IG # 0.08 10e3/ul Critically high 0.00-0.03 [facility] Comment on above: Performed By: #### C MADM, LIPA, BNP, CMP #### [facility] [address] [place] [address] Dr. Tasha Dodson IG % 0.5 % Normal 0.0-0.5 [facility] Comment on above: Performed By: #### C MADM, LIPA, BNP, CMP #### [facility] [address] [place] [address] Dr. Tasha Dodson LYMPH # 2.2 103/ul Normal 1.2-3.8 [facility] [facility] Comment on above: Performed By: #### C MADM, LIPA, BNP, CMP #### [facility] [address] [place] [address] Dr. Tasha Dodson Lymphocytes/100 WBC (Bld) 15.0 % Critically low 20.5-60.0 [facility] Comment on above: Performed By: #### C MADM, LIPA, BNP, CMP #### [facility] [address] [place] [address] Dr. Tasha Dodson MANUAL DIFF REQ NO Normal [facility] Comment on above: Performed By: #### C MADM, LIPA, BNP, CMP #### [facility] [address] [place] [address] Dr. Tasha Dodson MCH (RBC) [Entitic mass] 31.6 pg Normal 26.7-34.0 [facility] Comment on above: Performed By: #### C MADM, LIPA, BNP, CMP #### [facility] [address] [place] [address] Dr. Tasha Dodson MCHC (RBC) [Mass/Vol] 37.0 g/dL Critically high 29.9-35.2 [facility] Comment on above: Performed By: #### C MADM, LIPA, BNP, CMP #### [facility] [address] [place] [address] Dr. Tasha Dodson MCV (RBC) [Entitic vol] 85.3 fL Normal 81.0-99.0 [facility] Comment on above: Performed By: #### C MADM, LIPA, BNP, CMP #### [facility] [address] [place] [address] Dr. Tasha Dodson MONO # 1.0 103/ul Critically high 0.3-0.8 [facility] Comment on above: Performed By: #### C MADM, LIPA, BNP, CMP #### [facility] [address] [place] [address] Dr. Tasha Dodson Monocytes/100 WBC (Bld) 6.8 % Normal 1.7-12.0 [facility] Comment on above: Performed By: #### C MADM, LIPA, BNP, CMP #### [facility] [address] [place] [address] Dr. Tasha Dodson NEUT # 11.5 103/ul Critically high 1.4-6.5 [facility] Comment on above: Performed By: #### C MADM, LIPA, BNP, CMP #### [facility] [address] [place] [address] Dr. Tasha Dodson Neutrophils/100 WBC (Bld) 76.7 % Critically high 43.0-75.0 [facility] Comment on above: Performed By: #### C MADM, LIPA, BNP, CMP #### [facility] [address] [place] [address] Dr. Tasha Dodson Platelet mean volume (Bld) [Entitic vol] 8.6 fL Critically low 9.5-13.5 [facility] Comment on above: Performed By: #### C MADM, LIPA, BNP, CMP #### [facility] [address] [place] [address] Dr. Tasha Dodson PLT 491 103/ul Critically high 150-[address] [facility] Comment on above: Performed By: #### C MADM, LIPA, BNP, CMP #### [facility] [address] [place] [address] Dr. Tasha Dodson RBC 4.56 106/ul Normal 4.20-5.40 [facility] Comment on above: Performed By: #### C MADM, LIPA, BNP, CMP #### [facility] [address] [place] [address] Dr. Tasha Dodson WBC 15.0 103/ul Critically high 4.0-11.0 [facility] Comment on above: Performed By: #### C MADM, LIPA, BNP, CMP #### [facility] [address] [place] [address] Dr. Tasha Dodson CULTURE URINEon 12-26-2021 CULTURE URINE Culture Observations : LIGHT GROWTH OF MIXED GENITAL AMADOU. NO POTENTIAL PATHOGENS SEEN. Normal [facility] Comment on above: Performed By: #### C BC #### [facility] [address] [place] [address] Dr. Tasha Dodson [facility]on SARS-CoV-2 (COVID-19) RNA CARITO+probe Ql (Unsp spec) Not detected Normal NOT DETECTED [facility] Comment on above: Result Comment: When diagnostic [...] for this test is supported by the Clinical Training Specialist of Health and Human Service's declaration that [...] #### C MADM, LIPA, BNP, CMP #### [facility] [address] [place] [address] Dr. Tasha Dodson ER URINE PROFILEon 2 Bilirubin Ql (U) Negative Normal NEGATIVE [facility] Comment on above: Performed By: #### T SH, BMP #### [facility] [address] [place] [address] Dr. Tasha Dodson Clarity (U) CLEAR Normal CLEAR [facility] Comment on above: Performed By: #### T SH, BMP #### [facility] [address] [place] [address] Dr. Tasha Dodson Color (U) LT. YELLOW Normal YELLOW [facility] Comment on above: Performed By: #### T SH, BMP #### [facility] [address] [place] [address] Dr. Tasha Dodson ERUAHD A micrscopic examination will be performed if indicated. Normal [facility] Comment on above: Performed By: #### T SH, BMP #### [facility] [address] [place] [address] Dr. Tasha Dodson Glucose Ql (U) Negative Normal NEGATIVE [facility] Comment on above: Performed By: #### T SH, BMP #### [facility] [address] [place] [address] Dr. Tasha Dodson Hemoglobin Ql (U) TRACE-INTACT Abnormal NEGATIVE [facility] Comment on above: Performed By: #### T SH, BMP #### [facility] [address] [place] [address] Dr. Tasha Dodson Ketones Ql (U) TRACE Abnormal NEGATIVE [facility] Comment on above: Performed By: #### T SH, BMP #### [facility] [address] [place] [address] Dr. Tasha Dodson LEUKOCYTES Negative Normal NEGATIVE [facility] Comment on above: Performed By: #### T SH, BMP #### [facility] [address] [place] [address] Dr. Tasha Dodson Nitrite Ql (U) Negative Normal NEGATIVE [facility] Comment on above: Performed By: #### T SH, BMP #### [facility] [address] [place] [address] Dr. Tasha Dodson pH (U) 7.0 [pH] Normal 5-9 [facility] Comment on above: Performed By: #### T SH, BMP #### [facility] [address] [place] [address] Dr. Tasha Dodson SPEC GRAVITY 1.010 Normal 1.005-<=1.0 25 [facility] Comment on above: Performed By: #### T SH, BMP #### [facility] [address] [place] [address] Dr. Tasha Dodson UA PROTEIN Negative Normal NEGATIVE/ TRACE [facility] Comment on above: Performed By: #### T SH, BMP #### [facility] [address] [place] [address] Dr. Tasha Dodson UR MICRO IND INDICATED Normal [facility] Comment on above: Performed By: #### T SH, BMP #### [facility] [address] [place] [address] Dr. Tasha Dodson Urobilinogen Qn (U) 0.2 {Juan'U}/dL Normal 0.2 - 1. 0 [facility] Comment on above: Performed By: #### T SH, BMP #### [facility] [address] [place] [address] Dr. Tasha Dodson INFLUENZA A AND B AGon 12-26 INFLUANEGH SEE BELOW Normal [facility] Comment on above: Result Comment: Nega tive for Flu A protein angiten. Infection due to Flu A cannot be ruled out. Flu A angiten in the sample may be below the detection limit of the test. Performed By: #### C BC #### [facility] [address] [place] [address] Dr. Tasha Dodson INFLUBNEGH SEE BELOW Normal [facility] Comment on above: Result Comment: Nega tive for Flu B protein antigen. Infection due to Flu B cannot be ruled out. Flu B antigen in the sample may be below the detection limit of the test. Performed By: #### C BC #### [facility] [address] [place] [address] Dr. Tasha Dodson INFLUENZA A AG Negative Normal NEGATIVE SEE COMMENT [facility] Comment on above: Performed By: #### C BC #### [facility] [address] [place] [address] Dr. Tasha Dodson INFLUENZA B AG Negative Normal NEGATIVE SEE COMMENT [facility] Comment on above: Performed By: #### C BC #### [facility] [address] [place] [address] Dr. Tasha Dodson INTERNAL CONTROLS Within Normal Limits Normal Wi thin Normal Limits [facility] Comment on above: Performed By: #### C BC #### [facility] [address] [place] [address] Dr. Tasha Dodson LACTATE/LACTIC ACIDon 2021 Lactate [Moles/Vol] 1.5 mmol/L Normal 0.4-1.9 [facility] Comment on above: Performed By: #### T SH, BMP #### [facility] [address] [place] [address] Dr. Tasha Dodson LIPASEon 12-26-2021 Lipase [Catalytic activity/Vol] 96.0 U/L Normal 73.0-393.0 [facility] Comment on above: Performed By: #### C MADM, LIPA, BNP, CMP #### [facility] [address] [place] [address] Dr. Tasha Dodson PROF 14(COMP METB)on 022 Albumin [Mass/Vol] 4.2 g/dL Normal 3.4-5.0 [facility] Comment on above: Performed By: #### C MADM, LIPA, BNP, CMP #### [facility] [address] [place] [address] Dr. Tasha Dodson Albumin/Globulin [Mass ratio] 1.1 {ratio} Normal [facility] Comment on above: Performed By: #### C MADM, LIPA, BNP, CMP #### [facility] [address] [place] [address] Dr. Tasha Dodson ALP [Catalytic activity/Vol] 68 U/L Normal 46-116 [facility] Comment on above: Performed By: #### C MADM, LIPA, BNP, CMP #### [facility] [address] [place] [address] Dr. Tasha Dodson ALT [Catalytic activity/Vol] 23 U/L Normal 14-59 [facility] Comment on above: Performed By: #### C MADM, LIPA, BNP, CMP #### [facility] [address] [place] [address] Dr. Tasha Dodson Anion gap [Moles/Vol] 12.3 mmol/L Normal [facility] Comment on above: Performed By: #### C MADM, LIPA, BNP, CMP #### [facility] [address] [place] [address] Dr. Tasha Dodson AST [Catalytic activity/Vol] 25 U/L Normal 15-37 [facility] Comment on above: Performed By: #### C MADM, LIPA, BNP, CMP #### [facility] [address] [place] [address] Dr. Tasha Dodson Bilirubin [Mass/Vol] 0.7 mg/dL Normal 0.2-1.0 [facility] Comment on above: Performed By: #### C MADM, LIPA, BNP, CMP #### [facility] [address] [place] [address] Dr. Tasha Dodson Calcium [Mass/Vol] 9.5 mg/dL Normal 8.5-10.1 [facility] Comment on above: Performed By: #### C MADM, LIPA, BNP, CMP #### [facility] [address] [address] [address] Tasha Dodson Chloride [Moles/Vol] 80 mmol/L Critically low 98-107 [facility] Comment on above: Performed By: #### C MADM, LIPA, BNP, CMP #### [facility] [address] [address] [address] Tasha Dodson CO2 [Moles/Vol] 27.1 mmol/L Normal 21.0-32.0 [facility] Comment on above: Performed By: #### C MADM, LIPA, BNP, CMP #### [facility] [address] [place] [address] Dr. Tasha Dodson Creatinine [Mass/Vol] 0.85 mg/dL Normal 0.55-1.02 [facility] Comment on above: Performed By: #### C MADM, LIPA, BNP, CMP #### [facility] [address] [place] [address] Dr. Tasha Dodson EGFR-AF KAZAKH >60 Normal >=60 [facility] Comment on above: Performed By: #### C MADM, LIPA, BNP, CMP #### [facility] [address] [place] [address] Dr. Tasha Dodsno EGFR-NON AF KAZAKH >60 Normal >=60 [facility] Comment on above: Performed By: #### C MADM, LIPA, BNP, CMP #### [facility] [address] [place] [address] Dr. Tasha Dodson Globulin (S) [Mass/Vol] 3.9 g/dL Normal [facility] Comment on above: Performed By: #### C MADM, LIPA, BNP, CMP #### [facility] [address] [place] [address] Dr. Tasha Dodson Glucose [Mass/Vol] 132 mg/dL Critically high 74-106 [facility] Comment on above: Performed By: #### C MADM, LIPA, BNP, CMP #### [facility] [address] [address] [address] Tasha Dodson Potassium [Moles/Vol] 2.4 mmol/L Critically low 3.5-5.1 [facility] Comment on above: Performed By: #### C MADM, LIPA, BNP, CMP #### [facility] [address] [place] [address] Dr. Tasha Dodson Protein [Mass/Vol] 8.1 g/dL Normal 6.4-8.2 [facility] Comment on above: Performed By: #### C MADM, LIPA, BNP, CMP #### [facility] [address] [place] [address] Dr. Tasha Dodson Sodium [Moles/Vol] 116 mmol/L Critically low 136-145 [facility] Comment on above: Performed By: #### C MADM, LIPA, BNP, CMP #### [facility] [address] [place] [address] Dr. Tasha Dodson Urea nitrogen [Mass/Vol] 12.0 mg/dL Normal 7.0-18.0 [facility] Comment on above: Performed By: #### C MADM, LIPA, BNP, CMP #### [facility] [address] [place] [address] Dr. Tasha Dodson Urea nitrogen/Creatinine [Mass ratio] 14.1 mg/mg Normal [facility] Comment on above: Performed By: #### C MADM, LIPA, BNP, CMP #### [facility] [address] [place] [address] Dr. Tasha Dodson PROF CHEM 8 (BAS METB)on Anion gap [Moles/Vol] 11.4 mmol/L Normal [facility] Comment on above: Performed By: #### T SH, BMP #### [facility] [address] [place] [address] Dr. Tasha Dodson Calcium [Mass/Vol] 8.4 mg/dL Critically low 8.5-10.1 [facility] Comment on above: Performed By: #### T SH, BMP #### [facility] [address] [address] [address] Tasha Dodson Chloride [Moles/Vol] 89 mmol/L Critically low 98-107 [facility] Comment on above: Performed By: #### T SH, BMP #### [facility] [address] [address] [address] Tasha Dodson CO2 [Moles/Vol] 25.5 mmol/L Normal 21.0-32.0 [facility] Comment on above: Performed By: #### T SH, BMP #### [facility] [address] [address] [address] Tasha Dodson Creatinine [Mass/Vol] 0.89 mg/dL Normal 0.55-1.02 [facility] Comment on above: Performed By: #### T SH, BMP #### [facility] [address] [address] [address] Tasha Dodson EGFR-AF KAZAKH >60 Normal >=60 [facility] Comment on above: Performed By: #### T SH, BMP #### [facility] [address] [address] [address] Tasha Dodson EGFR-NON AF KAZAKH 60 mL/min/1.73m2 Normal >=60 [facility] Comment on above: Performed By: #### T SH, BMP #### [facility] [address] [address] [address] Tasha Dodson Glucose [Mass/Vol] 166 mg/dL Critically high 74-106 [facility] Comment on above: Performed By: #### T SH, BMP #### [facility] [address] [address] [address] Tasha Dodson Potassium [Moles/Vol] 3.0 mmol/L Critically low 3.5-5.1 [facility] Comment on above: Performed By: #### T SH, BMP #### [facility] [address] [address] [address] Tasha Dodson Sodium [Moles/Vol] 123 mmol/L Critically low 136-145 [facility] Comment on above: Performed By: #### T JESI, BMP #### [facility] [address] [place] [address] Dr. Tasha Dodson Urea nitrogen [Mass/Vol] 9.0 mg/dL Normal 7.0-18.0 [facility] Comment on above: Performed By: #### T JESI, BMP #### [facility] [address] [place] [address] Dr. Tsaha Dodson Urea nitrogen/Creatinine [Mass ratio] 10.1 mg/mg Normal [facility] Comment on above: Performed By: #### T JESI, BMP #### [facility] [address] [place] [address] Dr. Tasha Dodson PROTIMEon 12-26-2021 INR Coag (PPP) [Relative time] 0.96 {INR} Normal [facility] Comment on above: Performed By: #### T JESI, BMP #### [facility] [address] [place] [address] Dr. Tasha Dodson INR GUIDELINES SEE BELOW Normal [facility] Comment on above: Result Comment: JO RED INR: 2.0 - 3.0 CONDITIONS NOT LISTED BELOW 2.5 - 3.5 FOR PROSTHETIC HEART VALVE REPLACEMENT 2.5 - 3.5 RECURRENT THROMBOSIS Performed By: #### T JESI, BMP #### [facility] [address] [place] [address] Dr. Tasha Dodson PT Coag (PPP) [Time] 10.4 s Normal 9.0-11.6 [facility] Comment on above: Performed By: #### T JESI, BMP #### [facility] [address] [place] [address] Dr. Tasha Dodson PTTon 12-26-2021 aPTT Coag (Bld) [Time] 26.2 s Normal 22.3-36.2 [facility] Comment on above: Performed By: #### T JESI, BMP #### [facility] [address] [place] [address] Dr. Tasha Dodson SODIUM RANDOM URINEon 2021 Sodium (U) [Moles/Vol] 71 mmol/L Normal 30-90 [facility] Comment on above: Performed By: #### T SH, BMP #### [facility] [address] [place] [address] Dr. Tasha Dodson T4on 12-26-2021 T4 [Mass/Vol] 10.60 ug/dL Normal 4.80-13.90 [facility] Comment on above: Performed By: #### C BC #### [facility] [address] [place] [address] Dr. Tasha Dodson TSHon 12-26-2021 TSH 5.236 uIU/mL Critically high 0.358-3.740 [facility] Comment on above: Performed By: #### C BC #### [facility] [address] [place] [address] Dr. Tasha Dodson URINE MICROSCOPIC ONLYon BACTERIA TRACE Abnormal NONE SEEN [facility] Comment on above: Performed By: #### T SH, BMP #### [facility] [address] [place] [address] Dr. Tasha Dodson Bacteria identified Cx Nom (U) NOT INDICATED Normal [facility] Comment on above: Performed By: #### T SH, BMP #### [facility] [address] [place] [address] Dr. Tasha Dodson CAST NONE SEEN Normal NONE SEEN [facility] Comment on above: Performed By: #### T SH, BMP #### [facility] [address] [place] [address] Dr. Tasha Dodson Crystals LM Nom (Urine sed) NONE SEEN Normal NONE SEEN [facility] Comment on above: Performed By: #### T SH, BMP #### [facility] [address] [place] [address] Dr. Tasha Dodson Epithelial cells LM Ql (Urine sed) NONE SEEN Normal NONE SEEN /RARE [facility] Comment on above: Performed By: #### T SH, BMP #### [facility] [address] [place] [address] Dr. Tasha Dodson MUCOUS NONE SEEN Normal NONE SEEN [facility] Comment on above: Performed By: #### T SH, BMP #### [facility] [address] [address] [address] Tasha Dodson RBC 0-2 Normal 0-2 [facility] Comment on above: Performed By: #### T PAWAN DENNISON #### [facility] [address] [address] [address] Tasha Dodson WBC 0-2 Abnormal NONE SEEN [facility] Comment on above: Performed By: #### T PAWAN DENNISON #### [facility] [address] [address] [address] Tasha Dodson XR CHEST 1 Von [...] TING MIXON Date: 2021-12-26 11:32 Normal [facility] XR LSPINE MIN 4 VIEWSon 11-20 XR [...] by: JESUS BRUNO Date: 2021-11-30 22:52 Normal [facility] CBC AUTO DIFFon 11-09-2021 BASO # 0.1 103/ul Normal 0.0-0.1 [facility] Comment on above: Performed By: #### C MADM, LIPA, BNP, CMP #### [facility] [address] [place] [address] Dr. Tasha Dodson Basophils/100 WBC (Bld) 0.7 % Normal 0.2-2.0 [facility] Comment on above: Performed By: #### C MADM, LIPA, BNP, CMP #### [facility] [address] [place] [address] Dr. Tasha Dodson EO # 0.2 103/ul Normal 0.0-0.7 [facility] Comment on above: Performed By: #### C MADM, LIPA, BNP, CMP #### [facility] [address] [place] [address] Dr. Tasha Dodson Eosinophils/100 WBC (Bld) 1.8 % Normal 0.9-7.0 [facility] Comment on above: Performed By: #### C MADM, LIPA, BNP, CMP #### [facility] [address] [place] [address] Dr. Tasha Dodson Erythrocyte distribution width (RBC) [Ratio] 13.0 % Normal 11.0-15.0 [facility] Comment on above: Performed By: #### C MADM, LIPA, BNP, CMP #### [facility] [address] [place] [address] Dr. Tasha Dodson Hematocrit (Bld) [Volume fraction] 33.8 % Critically low 36.0-48.0 [facility] Comment on above: Performed By: #### C MADM, LIPA, BNP, CMP #### [facility] [address] [place] [address] Dr. Tasha Dodson Hemoglobin (Bld) [Mass/Vol] 12.5 g/dL Normal 12.0-16.0 [facility] Comment on above: Performed By: #### C MADM, LIPA, BNP, CMP #### [facility] [address] [place] [address] Dr. Tasha Dodson IG # 0.02 10e3/ul Normal 0.00-0.03 [facility] Comment on above: Performed By: #### C MADM, LIPA, BNP, CMP #### [facility] [address] [place] [address] Dr. Tasha Dodson IG % 0.2 % Normal 0.0-0.5 [facility] Comment on above: Performed By: #### C MADM, LIPA, BNP, CMP #### [facility] [address] [place] [address] Dr. Tasha Dodson LYMPH # 2.9 103/ul Normal 1.2-3.8 [facility] Comment on above: Performed By: #### C MADM, LIPA, BNP, CMP #### [facility] [address] [place] [address] Dr. Tasha Dodson Lymphocytes/100 WBC (Bld) 29.4 % Normal 20.5-60.0 [facility] Comment on above: Performed By: #### C MADM, LIPA, BNP, CMP #### [facility] [address] [place] [address] Dr. Tasha Dodson MANUAL DIFF REQ NO Normal [facility] Comment on above: Performed By: #### C MADM, LIPA, BNP, CMP #### [facility] [address] [place] [address] Dr. Tasha Dodson MCH (RBC) [Entitic mass] 34.1 pg Critically high 26.7-34.0 [facility] Comment on above: Performed By: #### C MADM, LIPA, BNP, CMP #### [facility] [address] [place] [address] Dr. Tasha Dodson MCHC (RBC) [Mass/Vol] 37.0 g/dL Critically high 29.9-35.2 [facility] Comment on above: Performed By: #### C MADM, LIPA, BNP, CMP #### [facility] [address] [place] [address] Dr. Tasha Dodson MCV (RBC) [Entitic vol] 92.1 fL Normal 81.0-99.0 [facility] Comment on above: Performed By: #### C MADM, LIPA, BNP, CMP #### [facility] [address] [place] [address] Dr. Tasha Dodson MONO # 0.8 103/ul Normal 0.3-0.8 [facility] Comment on above: Performed By: #### C MADM, LIPA, BNP, CMP #### [facility] [address] [place] [address] Dr. Tasha Dodson Monocytes/100 WBC (Bld) 8.2 % Normal 1.7-12.0 [facility] Comment on above: Performed By: #### C MADM, LIPA, BNP, CMP #### [facility] [address] [place] [address] Dr. Tasha Dodson NEUT # 5.9 103/ul Normal 1.4-6.5 [facility] Comment on above: Performed By: #### C MADM, LIPA, BNP, CMP #### [facility] [address] [place] [address] Dr. Tasha Dodson Neutrophils/100 WBC (Bld) 59.7 % Normal 43.0-75.0 [facility] Comment on above: Performed By: #### C MADM, LIPA, BNP, CMP #### [facility] [address] [place] [address] Dr. Tasha Dodson Platelet mean volume (Bld) [Entitic vol] 8.9 fL Critically low 9.5-13.5 [facility] Comment on above: Performed By: #### C MADM, LIPA, BNP, CMP #### [facility] [address] [place] [address] Dr. Tasha Dodson PLT 370 103/ul Normal 150-450 [facility] Comment on above: Performed By: #### C MADM, LIPA, BNP, CMP #### [facility] [address] [place] [address] Dr. Tasha Dodson RBC 3.67 106/ul Critically low 4.20-5.40 [facility] Comment on above: Performed By: #### C MADM, LIPA, BNP, CMP #### [facility] [address] [place] [address] Dr. Tasha Dodson WBC 9.9 103/ul Normal 4.0-11.0 [facility] Comment on above: Performed By: #### C MADM, LIPA, BNP, CMP #### [facility] [address] [place] [address] Dr. Tasha Dodson FREE T4on 11-09-2021 Free T4 [Mass/Vol] 1.48 ng/dL Critically high 0.76-1.46 [facility] Comment on above: Performed By: #### F T4 #### [facility] [address] [place] [address] Dr. Tasha Dodson PROF CHEM 8 (BAS METB)on Anion gap [Moles/Vol] 11.1 mmol/L Normal [facility] Comment on above: Performed By: #### T SH, BMP #### [facility] [address] [place] [address] Dr. Tasha Dodson Calcium [Mass/Vol] 9.3 mg/dL Normal 8.5-10.1 [facility] Comment on above: Performed By: #### T SH, BMP #### [facility] [address] [place] [address] Dr. Tasha Dodson Chloride [Moles/Vol] 92 mmol/L Critically low 98-107 [facility] Comment on above: Performed By: #### T SH, BMP #### [facility] [address] [place] [address] Dr. Tasha Dodson CO2 [Moles/Vol] 29.2 mmol/L Normal 21.0-32.0 [facility] Comment on above: Performed By: #### T SH, BMP #### [facility] [address] [place] [address] Dr. Tasha Dodson Creatinine [Mass/Vol] 0.68 mg/dL Normal 0.55-1.02 [facility] Comment on above: Performed By: #### T SH, BMP #### [facility] [address] [place] [address] Dr. Tasha Dodson EGFR-AF KAZAKH >60 Normal >=60 [facility] Comment on above: Performed By: #### T SH, BMP #### [facility] [address] [address] [address] Tasha Dodson EGFR-NON AF KAZAKH >60 Normal >=60 [facility] Comment on above: Performed By: #### T SH, BMP #### [facility] [address] [address] [address] Tasha Dodson Glucose [Mass/Vol] 109 mg/dL Critically high 74-106 [facility] Comment on above: Performed By: #### T SH, BMP #### [facility] [address] [address] [address] Tasha Dodson Potassium [Moles/Vol] 3.3 mmol/L Critically low 3.5-5.1 [facility] Comment on above: Performed By: #### T SH, BMP #### [facility] [address] [place] [address] Dr. Tasha Dodson Sodium [Moles/Vol] 129 mmol/L Critically low 136-145 [facility] Comment on above: Performed By: #### T SH, BMP #### [facility] [address] [address] [address] Tasha Dodson Urea nitrogen [Mass/Vol] 9.0 mg/dL Normal 7.0-18.0 [facility] Comment on above: Performed By: #### T SH, BMP #### [facility] [address] [place] [address] Dr. Tasha Dodson Urea nitrogen/Creatinine [Mass ratio] 13.2 mg/mg Normal [facility] Comment on above: Performed By: #### T SH, BMP #### [facility] [address] [address] [address] Tasha Dodson TSHon 11-09-2021 TSH 1.193 uIU/mL Normal 0.358-3.740 [facility] Comment on above: Performed By: #### T SH, BMP #### [facility] [address] [place] [address] Dr. Tasha Dodson LIPID PROFILEon 08-06-2021 CHOL-HDL RATIO NORM SEE BELOW Normal [facility] Comment on above: Result Comment: 3.3 - 4.4 LOW RISK 4.4 - 7.1 AVERAGE RISK 7.1 - 11.0 MODERATE RISK >11.0 HIGH RISK Performed By: #### C MADM, LIPA, BNP, CMP #### [facility] [address] [address] [address] Tasha Dodson Cholesterol [Mass/Vol] 198 mg/dL Normal <=200 [facility] Comment on above: Performed By: #### C MADM, LIPA, BNP, CMP #### [facility] [address] [address] [address] Tasha Dodson Cholesterol in HDL [Mass/Vol] 77 mg/dL Critically high 40-60 [facility] Comment on above: Performed By: #### C MADM, LIPA, BNP, CMP #### [facility] [address] [address] [address] Tasha Dodson Cholesterol in LDL [Mass/Vol] 106.0 mg/dL Normal [facility] Comment on above: Performed By: #### C MADM, LIPA, BNP, CMP #### [facility] [address] [address] [address] Tasha Dodson Cholesterol.total/Shahana sterol in HDL [Mass ratio] 2.6 {ratio} Normal [facility] Comment on above: Performed By: #### C MADM, LIPA, BNP, CMP #### [facility] [address] [address] [address] Tasha Dodson HDL NORMAL > or = 60 mg/dl - LO W CARDIOVASCULAR RISK <40 mg/dl - HIGH CARDIOVASCULAR RISK Normal [facility] Comment on above: Performed By: #### C MADM, LIPA, BNP, CMP #### [facility] [address] [address] [address] Tasha Dodson LDL CALC NORMAL SEE BELOW Normal [facility] Comment on above: Result Comment: <100 mg/dl OPTIMAL 100 - 129 mg/dl NEAR OR ABOVE OPTIMAL 130 - 159 mg/dl BORDERLINE HIGH 160 - 189 mg/dl HIGH >190 mg/dl VERY HIGH Performed By: #### C MADM, LIPA, BNP, CMP #### [facility] [address] [address] [address] Tasha Dodson Triglyceride [Mass/Vol] 75 mg/dL Normal <=150 T [facility] Comment on above: Performed By: #### C MADM, LIPA, BNP, CMP #### [facility] [address] [address] [address] Tasha Dodson VLDL CALC 15.0 mg/dL Normal [facility] Comment on above: Performed By: #### C MADM, LIPA, BNP, CMP #### [facility] [address] [address] [address] Tasha Dodson LIVER PROFILEon 08-06-2021 Albumin [Mass/Vol] 3.7 g/dL Normal 3.4-5.0 [facility] Comment on above: Performed By: #### C MADM, LIPA, BNP, CMP #### [facility] [address] [address] [address] Tasha Dodson Albumin/Globulin [Mass ratio] 1.0 {ratio} Normal [facility] Comment on above: Performed By: #### C MADM, LIPA, BNP, CMP #### [facility] [address] [address] [address] Tasha Dodson ALP [Catalytic activity/Vol] 62 U/L Normal 46-116 [facility] Comment on above: Performed By: #### C MADM, LIPA, BNP, CMP #### [facility] [address] [address] [address] Tasha Dodson ALT [Catalytic activity/Vol] 26 U/L Normal 14-59 [facility] Comment on above: Performed By: #### C MADM, LIPA, BNP, CMP #### [facility] [address] [address] [address] Tasha Dodson AST [Catalytic activity/Vol] 24 U/L Normal 15-37 [facility] Comment on above: Performed By: #### C MADM, LIPA, BNP, CMP #### [facility] [address] [address] [address] Tasha Dodson BILI, CONJUGATED 0.1 mg/dL Normal 0.0-0.2 [facility] Comment on above: Performed By: #### C MADM, LIPA, BNP, CMP #### [facility] [address] [place] [address] Dr. Tasha Dodson Bilirubin [Mass/Vol] 0.5 mg/dL Normal 0.2-1.0 [facility] Comment on above: Performed By: #### C MADM, LIPA, BNP, CMP #### [facility] [address] [place] [address] Dr. Tasha Dodson Globulin (S) [Mass/Vol] 3.8 g/dL Normal [facility] Comment on above: Performed By: #### C MADM, LIPA, BNP, CMP #### [facility] [address] [place] [address] Dr. Tasha Dodson Protein [Mass/Vol] 7.5 g/dL Normal 6.4-8.2 [facility] Comment on above: Performed By: #### C MADM, LIPA, BNP, CMP #### [facility] [address] [place] [address] Dr. Tasha Dodson FREE T4on 07-28-2021 Free T4 [Mass/Vol] 1.32 ng/dL Normal 0.76-1.46 [facility] Comment on above: Performed By: #### T SH, BMP #### [facility] [address] [place] [address] Dr. Tasha Dodson PROF CHEM 8 (BAS METB)on Anion gap [Moles/Vol] 11.6 mmol/L Normal [facility] Comment on above: Performed By: #### B MP, TSH #### [facility] [address] [place] [address] Dr. Tasha Dodson Calcium [Mass/Vol] 9.4 mg/dL Normal 8.5-10.1 [facility] Comment on above: Performed By: #### B MP, TSH #### [facility] [address] [place] [address] Dr. Tasha Dodson Chloride [Moles/Vol] 93 mmol/L Critically low 98-107 [facility] Comment on above: Performed By: #### B MP, TSH #### [facility] [address] [address] [address] Tasha Dodson CO2 [Moles/Vol] 29.8 mmol/L Normal 21.0-32.0 [facility] Comment on above: Performed By: #### B MP, TSH #### [facility] [address] [address] [address] Tasha Dodson Creatinine [Mass/Vol] 0.74 mg/dL Normal 0.55-1.02 [facility] Comment on above: Performed By: #### B MP, TSH #### [facility] [address] [place] [address] Dr. Tasha Dodson EGFR-AF KAZAKH >60 Normal >=60 [facility] Comment on above: Performed By: #### B MP, TSH #### [facility] [address] [place] [address] Dr. Tasha Dodson EGFR-NON AF KAZAKH >60 Normal >=60 [facility] Comment on above: Performed By: #### B MP, TSH #### [facility] [address] [address] [address] Tasha Dodson Glucose [Mass/Vol] 114 mg/dL Critically high 74-106 [facility] Comment on above: Performed By: #### B MP, TSH #### [facility] [address] [address] [address] Tasha Dodson Potassium [Moles/Vol] 3.4 mmol/L Critically low 3.5-5.1 [facility] Comment on above: Performed By: #### B MP, TSH #### [facility] [address] [address] [address] Tasha Dodson Sodium [Moles/Vol] 131 mmol/L Critically low 136-145 [facility] Comment on above: Performed By: #### B MP, TSH #### [facility] [address] [address] [address] Tasha Dodson Urea nitrogen [Mass/Vol] 12.0 mg/dL Normal 7.0-18.0 [facility] Comment on above: Performed By: #### B MP, TSH #### [facility] [address] [address] [address] Tasha Dodson Urea nitrogen/Creatinine [Mass ratio] 16.2 mg/mg Normal [facility] Comment on above: Performed By: #### B MP, TSH #### [facility] [address] [address] [address] Tasha Dodson TSHon 07-28-2021 TSH 1.790 uIU/mL Normal 0.358-3.740 [facility] Comment on above: Performed By: #### B MP, TSH #### [facility] [address] [place] [address] Dr. Tasha Dodson TSH RANGE SEE BELOW Normal [facility] Comment on above: Result Comment: <0.3 4 UIU/ml HYPERTHYROID 0.34-5.60 UIU/ml EUTHYROID >5.60 UIU/ml HYPOTHYROID Performed By: #### B MP, TSH #### [facility] [address] [address] [address] Tasha Dodson CBC Auto Differentialon 10-0 Basophils (Bld) [#/Vol] 0.1 10*3/uL 0 - 0.2 K/uL [place] Basophils/100 WBC (Bld) 1.1 % [place] Eosinophils (Bld) [#/Vol] 0.2 10*3/uL 0 - 0.7 K/uL [place] Eosinophils/100 WBC (Bld) 1.4 % [place] Erythrocyte distribution width (RBC) [Ratio] 14.4 % 11.5 - 14.5 % [place] Hematocrit (Bld) [Volume fraction] 33.6 % Low 37 - 47 % [place] Hemoglobin (Bld) [Mass/Vol] 11.1 g/dL Low 12 - 16 g/dL [place] Interpretation and review of laboratory results Abnormal [place] Lymphocytes (Bld) [#/Vol] 2.3 10*3/uL 1 - 4.8 K/uL [place] Lymphocytes/100 WBC (Bld) 18.0 % [place] MCH (RBC) [Entitic mass] 29.5 pg 27 - 31.3 pg [place] MCHC (RBC) [Mass/Vol] 33.0 % 33 - 37 % [place] MCV (RBC) [Entitic vol] 89.5 fL 82 - 100 fL [place] Monocytes (Bld) [#/Vol] 0.9 10*3/uL High 0.2 - 0.8 K/uL [place] Monocytes/100 WBC (Bld) 6.9 % [place] Neutrophils Absolute 9.1 K/uL High 1.4 - 6 .5 K/uL [place] Neutrophils/100 WBC (Bld) 72.6 % [place] Platelets (Bld) [#/Vol] 548 10*3/uL High 130 - 400 K/uL [place] RBC (Bld) [#/Vol] 3.75 10*6/uL Low [place] WBC (Bld) [#/Vol] 12.5 10*3/uL High 4.8 - 10.8 K/uL [place] CBC With Platelet and Differ entialon 11-20-2018 Basophils (Bld) [#/Vol] 0.1 10*3/uL Normal 0.0-0.2 [facility] Comment on above: Performed By: #### E SR #### [facility] [address] [facility] [address] Basophils/100 WBC (Bld) 1.1 % Normal [facility] Comment on above: Performed By: #### E SR #### [facility] [address] [facility] [address] Eosinophils (Bld) [#/Vol] 0.2 10*3/uL Normal 0.0-0.7 [facility] Comment on above: Performed By: #### E SR #### [facility] [address] [place] [address] Eosinophils/100 WBC (Bld) 1.4 % Normal [facility] Comment on above: Performed By: #### E SR #### [facility] [address] [place] [address] Erythrocyte distribution width (RBC) [Ratio] 14.4 % Normal 11.5-14.5 [facility] Comment on above: Performed By: #### E SR #### [facility] [address] [place] [address] Hematocrit (Bld) [Volume fraction] 33.6 % Low 37.0-47.0 [facility] Comment on above: Performed By: #### E SR #### [facility] [address] [place] [address] Hemoglobin (Bld) [Mass/Vol] 11.1 g/dL Low 12.0-16.0 [facility] Comment on above: Performed By: #### E SR #### [facility] [address] [place] [address] Lymphocytes (Bld) [#/Vol] 2.3 10*3/uL Normal 1.0-4.8 [facility] Comment on above: Performed By: #### E SR #### [facility] [address] [place] [address] Lymphocytes/100 WBC (Bld) 18.0 % Normal [facility] Comment on above: Performed By: #### E SR #### [facility] [address] [place] [address] MCH (RBC) [Entitic mass] 29.5 pg Normal 27.0-31.3 [facility] Comment on above: Performed By: #### E SR #### [facility] [address] [place] [address] MCHC (RBC) [Mass/Vol] 33.0 % Normal 33.0-37.0 [facility] Comment on above: Performed By: #### E SR #### [facility] [address] [place] [address] MCV (RBC) [Entitic vol] 89.5 fL Normal 82.0-100.0 [facility] Comment on above: Performed By: #### E SR #### [facility] [address] [place] [address] Monocytes (Bld) [#/Vol] 0.9 10*3/uL Critically high 0.2-0. 8 [facility] Comment on above: Performed By: #### E SR #### [facility] [address] [place] [address] Monocytes/100 WBC (Bld) 6.9 % Normal [facility] Comment on above: Performed By: #### E SR #### [facility] [address] [place] [address] Neutrophils (Bld) [#/Vol] 9.1 10*3/uL Critically high 1.4-6.5 [facility] Comment on above: Performed By: #### E SR #### [facility] [address] [place] [address] Neutrophils/100 WBC (Bld) 72.6 % Normal [facility] Comment on above: Performed By: #### E SR #### [facility] [address] [place] [address] Platelets (Bld) [#/Vol] 548 10*3/uL Critically high 130-40 0 [facility] Comment on above: Performed By: #### E SR #### [facility] [address] [place] [address] RBC (Bld) [#/Vol] 3.75 10*6/uL Low 4.20-5.40 [facility] Comment on above: Performed By: #### E SR #### [facility] [address] [place] [address] WBC (Bld) [#/Vol] 12.5 10*3/uL Critically high 4.8-10.8 [facility] Comment on above: Performed By: #### E SR #### [facility] [address] [place] [address] EKG 12 Leadon 11-20-2018 Atrial Rate 79 BPM [place] P [place] 58 degrees [place] P-R Interval 176 ms [place] Q-T Interval 404 ms [facility], [place] QRS Duration 130 ms [place] QTc Calculation (Bazett) 463 ms [place] R [place] -11 degrees [facility], [place] T [place] 5 degrees [place] Urea nitrogen [Mass/Vol] Normal sinus rhythm Right bundle branch block Moderate voltage criteria for LVH, may be normal variant Abnormal ECG When compared with ECG of 13-NOV-2018 08:33, No significant change was found Confirmed by Анна Zamarripa ([id number]) on 11/20/2018 9:39:56 AM [place] Ventricular Rate 79 BPM [place] Joseph, Chpo Incoming Results From [place] - 11/20/2018 9:40 AM EDT Normal sinus rhythm Right bundle branch block Moderate voltage criteria for LVH, may be normal variant Abnormal ECG When compared with ECG of 13-NOV-2018 08:33, No significant change was found Confirmed by Анна Zamarripa ([id number]) on 11/20/2018 9:39:56 AM [place] CBC Auto Differentialon 10-23 Neutrophils Absolute 6.1 K/uL 1.4 - 6 .5 K/uL [place] CBC With Platelet and Differ entialon 11-19-2018 Basophils (Bld) [#/Vol] 0.2 10*3/uL Normal 0.0-0.2 [place] Comment on above: Performed By: #### C MP #### [facility] [address] [place] [address] Basophils/100 WBC (Bld) 1.5 % Normal [place] Comment on above: Performed By: #### C MP #### [facility] [address] [place] [address] Eosinophils (Bld) [#/Vol] 0.3 10*3/uL Normal 0.0-0.7 [place] Comment on above: Performed By: #### C MP #### [facility] [address] [place] [address] Eosinophils/100 WBC (Bld) 2.5 % Normal [place] Comment on above: Performed By: #### C MP #### [facility] [address] [place] [address] Erythrocyte distribution width (RBC) [Ratio] 14.1 % Normal 11.5-14.5 [place] Comment on above: Performed By: #### C MP #### [facility] [address] [place] [address] Hematocrit (Bld) [Volume fraction] 29.3 % Low 37.0-47.0 [place] Comment on above: Performed By: #### C MP #### [facility] [address] [place] [address] Hemoglobin (Bld) [Mass/Vol] 10.1 g/dL Low 12.0-16.0 [place] Comment on above: Performed By: #### C MP #### [facility] [address] [place] [address] Lymphocytes (Bld) [#/Vol] 2.8 10*3/uL Normal 1.0-4.8 [place] Comment on above: Performed By: #### C MP #### [facility] [address] [place] [address] Lymphocytes/100 WBC (Bld) 27.3 % Normal [place] Comment on above: Performed By: #### C MP #### [facility] [address] [place] [address] MCH (RBC) [Entitic mass] 30.7 pg Normal 27.0-31.3 [place] Comment on above: Performed By: #### C MP #### [facility] [address] [place] [address] MCHC (RBC) [Mass/Vol] 34.6 % Normal 33.0-37.0 [place] Comment on above: Performed By: #### C MP #### [facility] [address] [place] [address] MCV (RBC) [Entitic vol] 88.9 fL Normal 82.0-100.0 [place] Comment on above: Performed By: #### C MP #### [facility] [address] [place] [address] Monocytes (Bld) [#/Vol] 0.9 10*3/uL Critically high 0.2-0. 8 [place] Comment on above: Performed By: #### C MP #### [facility] [address] [place] [address] Monocytes/100 WBC (Bld) 9.2 % Normal [place] Comment on above: Performed By: #### C MP #### [facility] [address] [place] [address] Neutrophils (Bld) [#/Vol] 6.1 10*3/uL Normal 1.4-6.5 [facility] Comment on above: Performed By: #### C MP #### [facility] [address] [place] [address] Neutrophils/100 WBC (Bld) 59.5 % Normal [place] Comment on above: Performed By: #### C MP #### [facility] [address] [place] [address] Platelets (Bld) [#/Vol] 396 10*3/uL Normal 130-400 [place] Comment on above: Performed By: #### C MP #### [facility] [address] [address] RBC (Bld) [#/Vol] 3.30 10*6/uL Low 4.20-5.40 [place] Comment on above: Performed By: #### C MP #### [facility] [address] [place] [address] WBC (Bld) [#/Vol] 10.2 10*3/uL Normal 4.8-10.8 [place] Comment on above: Performed By: #### C MP #### [facility] [address] [place] [address] High Sensitivity CRPon 11-19 High Sensitivity CRP 89.2 mg/L Critically high 0.0-5.0 [facility] Comment on above: Performed By: #### E SR #### [facility] [address] [place] [address] High sensitivity CRPon 11-19 CRP High Sensitivity 89.2 mg/L High 0 - 5 mg/L [place] Interpretation and review of laboratory results Abnormal [place] Otheron 11-19-2018 Interpretation and review of laboratory results Abnormal [place] Sedimentation Rateon 019 Sedimentation Rate 55 mm Critically high 0-[address] [facility] Comment on above: Performed By: #### C MP #### [facility] [address] [place] [address] Sed Rate 55 mm High 0 - 30 mm [place] Basic Metabolic Panelon 10-22 Anion gap [Moles/Vol] 14 mmol/L Normal 9-15 [facility] Comment on above: Performed By: #### C MP #### [facility] [address] [place] [address] Calcium [Mass/Vol] 8.8 mg/dL Normal 8.5-9.9 [facility] Comment on above: Performed By: #### C MP #### [facility] [address] [place] [address] Chloride [Moles/Vol] 95 mmol/L Normal 95-107 [facility] Comment on above: Performed By: #### C MP #### [facility] [address] [place] [address] CO2 [Moles/Vol] 26 mmol/L Normal 20-31 [facility] Comment on above: Performed By: #### C MP #### [facility] [address] [place] [address] Creatinine [Mass/Vol] 0.58 mg/dL Normal 0.50-0.90 [facility] Comment on above: Performed By: #### C MP #### [facility] [address] [place] [address] GFR/1.73 sq M predicted among blacks MDRD (S/P/Bld) [Vol rate/Area] mL/min/{1.73_m2} Normal >60 [facility] Comment on above: Result Comment: >60 mL/min/1.73m2 EGFR, calc. for ages 18 and older using the MDRD formula (not corrected for weight), is valid for stable renal function. Performed By: #### C MP #### [facility] [address] [place] [address] GFR/1.73 sq M.predicted MDRD (S/P/Bld) [Vol rate/Area] mL/min/{1.73_m2} Normal >60 [facility] Comment on above: Result Comment: >60 mL/min/1.73m2 EGFR, calc. for ages 18 and older using the MDRD formula (not corrected for weight), is valid for stable renal function. Performed By: #### C MP #### [facility] [address] [place] [address] Glucose [Mass/Vol] 156 mg/dL Critically high 70-[address] [facility] Comment on above: Performed By: #### C MP #### [facility] [address] [place] [address] Potassium [Moles/Vol] 3.3 mmol/L Low 3.4-4.9 [facility] Comment on above: Performed By: #### C MP #### [facility] [address] [place] [address] Sodium [Moles/Vol] 135 mmol/L Normal 135-144 [facility] Comment on above: Performed By: #### C MP #### [facility] [address] [place] [address] Urea nitrogen [Mass/Vol] 11 mg/dL Normal 8-23 [facility] Comment on above: Performed By: #### C MP #### [facility] [address] [place] [address] Anion gap [Moles/Vol] 14 mmol/L [place], [place] Calcium [Mass/Vol] 8.8 mg/dL 8.5 - 9.9 mg/dL [place] Chloride [Moles/Vol] 95 mmol/L [place] CO2 [Moles/Vol] 26 mmol/L [place] Creatinine [Mass/Vol] 0.58 mg/dL 0.5 - 0.9 mg/dL [place] GFR >60.0 >60 [place] Comment on above: >60 mL/min/1.73m2 EG FR, calc. for ages 18 and older using the MDRD formula (not corrected for weight), is valid for stable renal function. GFR Non- >60.0 >60 [place] Comment on above: >60 mL/min/1.73m2 EG FR, calc. for ages 18 and older using the MDRD formula (not corrected for weight), is valid for stable renal function. Glucose [Mass/Vol] 156 mg/dL High 70 - 99 mg/dL [place] Interpretation and review of laboratory results Abnormal [place] Potassium [Moles/Vol] 3.3 mmol/L Low [place] Sodium [Moles/Vol] 135 mmol/L [place] Urea nitrogen [Mass/Vol] 11 mg/dL 8 - 23 mg/dL [place] Magnesiumon 11-18-2018 Magnesium [Mass/Vol] 1.8 mg/dL Normal 1.7-2.4 [facility] Comment on above: Performed By: #### C MP #### [facility] [address] [place] [address] Magnesium [Mass/Vol] 1.8 mg/dL 1.7 - 2 .4 mg/dL [place] TSH w/out Reflexon 9 TSH Qn 0.880 uIU/mL Normal 0.440-3.86 [facility] Comment on above: Performed By: #### C MP #### [facility] [address] [place] [address] TSH without Reflexon 019 TSH Qn 0.880 m[IU]/L [place] CBC Auto Differentialon 10-22 Basophils (Bld) [#/Vol] 0.1 10*3/uL 0 - 0.2 K/uL [place] Basophils/100 WBC (Bld) 0.7 % [place] Eosinophils (Bld) [#/Vol] 0.4 10*3/uL 0 - 0.7 K/uL [place] Eosinophils/100 WBC (Bld) 2.8 % [place] Erythrocyte distribution width (RBC) [Ratio] 14.2 % 11.5 - 14.5 % [place] Hematocrit (Bld) [Volume fraction] 32.3 % Low 37 - 47 % [place] Hemoglobin (Bld) [Mass/Vol] 10.8 g/dL Low 12 - 16 g/dL [place] Interpretation and review of laboratory results Abnormal [place] Lymphocytes (Bld) [#/Vol] 2.6 10*3/uL 1 - 4.8 K/uL [place] Lymphocytes/100 WBC (Bld) 16.8 % [place] MCH (RBC) [Entitic mass] 30.3 pg 27 - 31.3 pg [place] MCHC (RBC) [Mass/Vol] 33.4 % 33 - 37 % [place] MCV (RBC) [Entitic vol] 90.5 fL 82 - 100 fL [place] Monocytes (Bld) [#/Vol] 1.3 10*3/uL High 0.2 - 0.8 K/uL [place] Monocytes/100 WBC (Bld) 8.3 % [place] Neutrophils Absolute 11.1 K/uL High 1.4 - 6 .5 K/uL [place] Neutrophils/100 WBC (Bld) 71.4 % [place] Platelets (Bld) [#/Vol] 375 10*3/uL 130 - 400 K/uL [place] RBC (Bld) [#/Vol] 3.57 10*6/uL Low [place] WBC (Bld) [#/Vol] 15.5 10*3/uL High 4.8 - 10.8 K/uL [place] CBC With Platelet and Differ entialon 11-17-2018 Basophils (Bld) [#/Vol] 0.1 10*3/uL Normal 0.0-0.2 [facility] Comment on above: Performed By: #### C MP #### [facility] [address] [place] [address] Basophils/100 WBC (Bld) 0.7 % Normal [facility] Comment on above: Performed By: #### C MP #### [facility] [address] [place] [address] Eosinophils (Bld) [#/Vol] 0.4 10*3/uL Normal 0.0-0.7 [facility] Comment on above: Performed By: #### C MP #### [facility] [address] [place] [address] Eosinophils/100 WBC (Bld) 2.8 % Normal [facility] Comment on above: Performed By: #### C MP #### [facility] [address] [place] [address] Erythrocyte distribution width (RBC) [Ratio] 14.2 % Normal 11.5-14.5 [facility] Comment on above: Performed By: #### C MP #### [facility] [address] [place] [address] Hematocrit (Bld) [Volume fraction] 32.3 % Low 37.0-47.0 [facility] Comment on above: Performed By: #### C MP #### [facility] [address] [place] [address] Hemoglobin (Bld) [Mass/Vol] 10.8 g/dL Low 12.0-16.0 [facility] Comment on above: Performed By: #### C MP #### [facility] [address] [place] [address] Lymphocytes (Bld) [#/Vol] 2.6 10*3/uL Normal 1.0-4.8 [facility] Comment on above: Performed By: #### C MP #### [facility] [address] [place] [address] Lymphocytes/100 WBC (Bld) 16.8 % Normal [facility] Comment on above: Performed By: #### C MP #### [facility] [address] [place] [address] MCH (RBC) [Entitic mass] 30.3 pg Normal 27.0-31.3 [facility] Comment on above: Performed By: #### C MP #### [facility] [address] [place] [address] MCHC (RBC) [Mass/Vol] 33.4 % Normal 33.0-37.0 [facility] Comment on above: Performed By: #### C MP #### [facility] [address] [place] [address] MCV (RBC) [Entitic vol] 90.5 fL Normal 82.0-100.[address] [facility] Comment on above: Performed By: #### C MP #### [facility] [address] [place] [address] Monocytes (Bld) [#/Vol] 1.3 10*3/uL Critically high 0.2-0. 8 [facility] Comment on above: Performed By: #### C MP #### [facility] [address] [place] [address] Monocytes/100 WBC (Bld) 8.3 % Normal [facility] Comment on above: Performed By: #### C MP #### [facility] [address] [place] [address] Neutrophils (Bld) [#/Vol] 11.1 10*3/uL Critically high 1.4-6.5 [facility] Comment on above: Performed By: #### C MP #### [facility] [address] [place] [address] Neutrophils/100 WBC (Bld) 71.4 % Normal [facility] Comment on above: Performed By: #### C MP #### [facility] [address] [place] [place] [address] Platelets (Bld) [#/Vol] 375 10*3/uL Normal 130-400 [facility] Comment on above: Performed By: #### C MP #### [facility] [address] [place] [address] RBC (Bld) [#/Vol] 3.57 10*6/uL Low 4.20-5.40 [facility] Comment on above: Performed By: #### C MP #### [facility] [address] [place] [address] WBC (Bld) [#/Vol] 15.5 10*3/uL Critically high 4.8-10.8 [facility] Comment on above: Performed By: #### C MP #### [facility] [address] [place] [address] High Sensitivity CRPon 11-17 High Sensitivity CRP 230.1 mg/L Critically high 0.0-5.0 [facility] Comment on above: Performed By: #### C MP #### [facility] [address] [place] [address] High sensitivity CRPon 11-17 CRP High Sensitivity 230.1 mg/L High 0 - 5 mg/L [place] Interpretation and review of laboratory results Abnormal [place] Sedimentation Rateon 2 019 Sedimentation Rate 50 mm Critically high 0-[address] [facility] Comment on above: Performed By: #### C MP #### [facility] [address] [place] [address] Interpretation and review of laboratory results Abnormal [place], [place] Sed Rate 50 mm High 0 - 30 mm [place] DUP LOWER EXTREMITIES VAUGHN ATERAL VENOUSon 11-17-2018 NO DVT IDENTIFIED IN EITHER LOWER EXTREMITY. [place] Joseph, Chpo Incoming Radiant Results From [employer] - 11/17/2018 8:05 AM EDT US DUP [...] NO DVT IDENTIFIED IN EITHER LOWER EXTREMITY. [place] DUP LOWER EXTREMITIES BILATERAL VENOUS : 11/16/2018 CLINICAL HISTORY: LEG SWELLING, PAIN, DVT SUSPECTED . COMPARISON: None available. Grayscale, compression, color and waveform Doppler analysis of both lower extremity deep venous systems was performed with augmentation. FINDINGS: There is no deep venous thrombosis, abnormal masses, fluid collections or other findings of concern identified within either lower extremity. [place] Urine Cultureon 11-17-2018 Bacteria identified Cx Nom (U) No growth 24 hours [place], [place] ORDERED BY: ADDY COKER SOURCE: Urine Clean Catch COLLECTED: 11/15/18 19:05 ANTIBIOTICS AT DI.: RECEIVED : 11/15/18 19:05 [place] CBC With Platelet and Differ entialon 11-16-2018 Neutrophils (Bld) [#/Vol] 15.5 10*3/uL Critically high 1.4-6.5 [facility] Comment on above: Performed By: #### P TT #### [facility] [address] [place] [address] Basophils (Bld) [#/Vol] 0.2 10*3/uL Normal 0.0-0.2 [place] Comment on above: Performed By: #### P TT #### [facility] [address] [place] [address] Basophils/100 WBC (Bld) 0.9 % Normal [place] Comment on above: Performed By: #### P TT #### [facility] [address] [place] [address] Eosinophils (Bld) [#/Vol] 0.1 10*3/uL Normal 0.0-0.7 [place] Comment on above: Performed By: #### P TT #### [facility] [address] [place] [address] Eosinophils/100 WBC (Bld) 0.8 % Normal [place] Comment on above: Performed By: #### P TT #### [facility] [address] [place] [address] Erythrocyte distribution width (RBC) [Ratio] 14.4 % Normal 11.5-14.5 [place] Comment on above: Performed By: #### P TT #### [facility] [address] [place] [address] Hematocrit (Bld) [Volume fraction] 33.4 % Low 37.0-47.0 [place] Comment on above: Performed By: #### P TT #### [facility] [address] [place] [address] Hemoglobin (Bld) [Mass/Vol] 11.0 g/dL Low 12.0-16.0 [place] Comment on above: Performed By: #### P TT #### [facility] [address] [place] [address] Lymphocytes (Bld) [#/Vol] 1.5 10*3/uL Normal 1.0-4.8 [place] Comment on above: Performed By: #### P TT #### [facility] [address] [place] [address] Lymphocytes/100 WBC (Bld) 7.9 % Normal [place] Comment on above: Performed By: #### P TT #### [facility] [address] [place] [address] MCH (RBC) [Entitic mass] 29.4 pg Normal 27.0-31.3 [place] Comment on above: Performed By: #### P TT #### [facility] [address] [address] MCHC (RBC) [Mass/Vol] 32.9 % Low 33.0-37.0 [place] Comment on above: Performed By: #### P TT #### [facility] [address] [address] MCV (RBC) [Entitic vol] 89.4 fL Normal 82.0-100.0 [place] Comment on above: Performed By: #### P TT #### [facility] [address] [address] Monocytes (Bld) [#/Vol] 1.3 10*3/uL Critically high 0.2-0. 8 [place] Comment on above: Performed By: #### P TT #### [facility] [address] [address] Monocytes/100 WBC (Bld) 7.1 % Normal [place] Comment on above: Performed By: #### P TT #### [facility] [address] [place] [address] Neutrophils/100 WBC (Bld) 83.3 % Normal [place] Comment on above: Performed By: #### P TT #### [facility] [address] [place] [address] Platelets (Bld) [#/Vol] 304 10*3/uL Normal 130-400 [place] Comment on above: Performed By: #### P TT #### [facility] [address] [place] [address] RBC (Bld) [#/Vol] 3.74 10*6/uL Low 4.20-5.40 [place] Comment on above: Performed By: #### P TT #### [facility] [address] [facility] [address] WBC (Bld) [#/Vol] 18.6 10*3/uL Critically high 4.8-10.8 [place] Comment on above: Performed By: #### P TT #### [facility] [address] [facility] [address] CBC auto differentialon 10-22 Interpretation and review of laboratory results Abnormal [place] Neutrophils Absolute 15.5 K/uL High 1.4 - 6 .5 K/uL [place] ECHO Complete 2D W Doppler W Coloron 11-16-2018 Transthoracic Echocardiography Report (TTE) Demographics Patient Name MERCY GANDHI Gender Female Patient Number [id number] Race Unknown Ethnicity Visit Number [id number] Room Number R238 Corporate ID Date of Study 11/16/2018 Referring Physician Niki Vazquez DO Number Date of 1935 [employer] [address] Age 83 year(s) Interpreting [facility] Physician Cardiology Cain Quinonez MD Procedure [...] Gradient: 4.03 mmHg Estimated PASP: 40.86 mmHg SD ED Velocity: 1.27 m/s LVOT Peak Velocity: [...] cm LVOT Diameter: 1.65 cm [facility]- [place], [place] Joseph, Chpo Incoming Cardiovascular Results From [facility] - 11/16/2018 5:05 PM EDT Transthoracic Echocardiography Report (TTE) Demographics Patient Name MADRID HIRAM Gender Female Patient Number [id number] Race Unknown Ethnicity Visit Number [id number] Room Number R238 Corporate ID Date of Study 11/16/2018 Referring Physician DO Natalia Dickens Date of 1935 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 Age 83 year(s) Interpreting [facility] Physician Cardiology Cain Quinonez MD Procedure [...] Gradient: 4.03 mmHg Estimated PASP: 40.86 mmHg SD ED Velocity: 1.27 m/s LVOT Peak Velocity: [...] Root: 2.35 cm LVOT Diameter: 1.65 cm [place] Microscopic Urinalysison Bacteria, UA Negative /HPF [place] Epi Cells 3-5 /HPF [place] Interpretation and review of laboratory results Abnormal [place] RBC (U) [#/Vol] 3-5 Abnormal [place] Renal Epithelial, Urine 0-2 Abnormal /HPF [place] WBC, UA None seen [place] CAROTID ARTERY BILATERALo n 11-16-2018 [...] Damped resistive CCA decreased decreased resistive CCA [place] Joseph, Chpo Incoming Radiant Results From [employer] - 11/16/2018 10:40 AM EDT Patient : [...] Damped resistive CCA decreased decreased resistive CCA [facility] [place] Patient 5 : 1935 Age: 83 years [...] and noncalcified plaque bilateral carotid arterial systems [place] US DUP LOWER EXTREMITIES VAUGHN ATERAL [...] De Souza MD 11/17/18 Final result Normal [facility] Urine Microscopicon 11-17-19 19 Bacteria LM.HPF (Urine sed) [#/Area] Negative Normal [facility] Comment on above: Performed By: #### P TT #### [facility] [address] [place] [address] Epithelial cells LM Ql (Urine sed) 3-5 Normal [facility] Comment on above: Performed By: #### P TT #### [facility] [address] [place] [address] RBC (U) [#/Vol] 3-5 Abnormal 0-2 [facility] Comment on above: Performed By: #### P TT #### [facility] [address] [place] [address] Urine Renal Epithelial 0-2 Abnormal Me [facility] Comment on above: Performed By: #### P TT #### [facility] [address] [place] [address] WBC (U) [#/Vol] None seen Normal 0-5 [facility] Comment on above: Performed By: #### P TT #### [facility] [address] [place] [address] XR CHEST PORTABLEon 11-17-19 19 Joseph, Chpo Incoming Radiant Results From [employer] - 11/16/2018 10:21 AM EDT EXAMINATION: XR CHEST PORTABLE CLINICAL HISTORY: fever . History of back surgery. COMPARISONS: None available. FINDINGS: Single AP portable view the chest obtained on November 15, 2018 at 2124 hours. The heart is not enlarged. Mediastinum is not widened. Calcified aorta is not dilated. Lungs are clear. The chest wall is unremarkable. CONCLUSION: NO ACUTE PROCESS [place] EXAMINATION: XR CHES T PORTABLE CLINICAL HISTORY: fever . History of back surgery. COMPARISONS: None available. FINDINGS: Single AP portable view the chest obtained on November 15, 2018 at 2124 hours. The heart is not enlarged. Mediastinum is not widened. Calcified aorta is not dilated. Lungs are clear. The chest wall is unremarkable. CONCLUSION: NO ACUTE PROCESS [place] CBC Auto Differentialon 10-22 Anisocytosis Ql (Bld) 1+ [place], [place] Bands Relative 4 % Low 5 - 11 % [place] Basophils (Bld) [#/Vol] 0.0 10*3/uL 0 - 0.2 K/uL [place] Basophils/100 WBC (Bld) 0.6 % [place] Eosinophils (Bld) [#/Vol] 0.0 10*3/uL 0 - 0.7 K/uL [place] Eosinophils/100 WBC (Bld) 0.9 % [place] Erythrocyte distribution width (RBC) [Ratio] 14.6 % High 11.5 - 14.5 % [place] Hematocrit (Bld) [Volume fraction] 33.3 % Low 37 - 47 % [place] Hemoglobin (Bld) [Mass/Vol] 10.9 g/dL Low 12 - 16 g/dL [place] Interpretation and review of laboratory results Abnormal [place] Lymphocytes (Bld) [#/Vol] 3.5 10*3/uL 1 - 4.8 K/uL [place] Lymphocytes/100 WBC (Bld) 17.0 % [place] MCH (RBC) [Entitic mass] 29.8 pg 27 - 31.3 pg [place] MCHC (RBC) [Mass/Vol] 32.9 % Low 33 - 37 % [place] MCV (RBC) [Entitic vol] 90.7 fL 82 - 100 fL [place] Microcytes 1+ [place] Monocytes (Bld) [#/Vol] 0.0 10*3/uL Low 0.2 - 0.8 K/uL [place] Monocytes/100 WBC (Bld) 7.7 % [place] Neutrophils Absolute 17.3 K/uL High 1.4 - 6 .5 K/uL [place] Neutrophils/100 WBC (Bld) 79.0 % [place] PLATELET SLIDE REVIEW Normal [place] Platelets (Bld) [#/Vol] 315 10*3/uL 130 - 400 K/uL [place] RBC (Bld) [#/Vol] 3.67 10*6/uL Low [place] WBC (Bld) [#/Vol] 20.8 10*3/uL High 4.8 - 10.8 K/uL [place] CBC With Platelet No Differe ntialon 11-15-2018 Erythrocyte distribution width (RBC) [Ratio] 14.5 % Normal 11.5-14.5 [facility] Comment on above: Performed By: #### P TT #### [facility] [address] [place] [address] Hematocrit (Bld) [Volume fraction] 36.9 % Low 37.0-47.0 [facility] Comment on above: Performed By: #### P TT #### [facility] [address] [place] [address] Hemoglobin (Bld) [Mass/Vol] 11.9 g/dL Low 12.0-16.0 [facility] Comment on above: Performed By: #### P TT #### [facility] [address] [place] [address] MCH (RBC) [Entitic mass] 29.4 pg Normal 27.0-31.3 [facility] Comment on above: Performed By: #### P TT #### [facility] [address] [place] [address] MCHC (RBC) [Mass/Vol] 32.3 % Low 33.0-37.0 [facility] Comment on above: Performed By: #### P TT #### [facility] [address] [place] [address] MCV (RBC) [Entitic vol] 91.1 fL Normal 82.0-100.0 [facility] Comment on above: Performed By: #### P TT #### [facility] [address] [place] [address] Platelets (Bld) [#/Vol] 341 10*3/uL Normal 130-400 [facility] Comment on above: Performed By: #### P TT #### [facility] [address] [place] [address] RBC (Bld) [#/Vol] 4.05 10*6/uL Low 4.20-5.40 [facility] Comment on above: Performed By: #### P TT #### [facility] [address] [place] [address] WBC (Bld) [#/Vol] 19.8 10*3/uL Critically high 4.8-10.8 [facility] Comment on above: Performed By: #### P TT #### [facility] [address] [place] [address] CBC With Platelet and Differ entialon 11-15-2018 Anisocytosis Ql (Bld) 1+ Normal [facility] Comment on above: Performed By: #### P TT #### [facility] [address] [place] [address] Bands 4 % Low 5-11 [facility] Comment on above: Performed By: #### P TT #### [facility] [address] [place] [address] Basophils (Bld) [#/Vol] 0.0 10*3/uL Normal 0.0-0.2 [facility] Comment on above: Performed By: #### P TT #### [facility] [address] [place] [address] Basophils/100 WBC (Bld) 0.6 % Normal [facility] Comment on above: Performed By: #### P TT #### [facility] [address] [place] [address] Eosinophils (Bld) [#/Vol] 0.0 10*3/uL Normal 0.0-0.7 [facility] Comment on above: Performed By: #### P TT #### [facility] [address] [place] [address] Eosinophils/100 WBC (Bld) 0.9 % Normal [facility] Comment on above: Performed By: #### P TT #### [facility] [address] [place] [address] Lymphocytes (Bld) [#/Vol] 3.5 10*3/uL Normal 1.0-4.8 [facility] Comment on above: Performed By: #### P TT #### [facility] [address] [place] [address] Lymphocytes/100 WBC (Bld) 17.0 % Normal [facility] Comment on above: Performed By: #### P TT #### [facility] [address] [place] [address] Microcytic 1+ Normal [facility] Comment on above: Performed By: #### P TT #### [facility] [address] [place] [address] Monocytes (Bld) [#/Vol] 0.0 10*3/uL Low 0.2-0.8 [facility] Comment on above: Performed By: #### P TT #### [facility] [address] [place] [address] Monocytes/100 WBC (Bld) 7.7 % Normal [facility] Comment on above: Performed By: #### P TT #### [facility] [address] [place] [address] Neutrophils (Bld) [#/Vol] 17.3 10*3/uL Critically high 1.4-6.5 [facility] Comment on above: Performed By: #### P TT #### [facility] [address] [place] [address] Neutrophils/100 WBC (Bld) 79.0 % Normal [facility] Comment on above: Performed By: #### P TT #### [facility] [address] [place] [address] Platelet Slide Review Normal Normal [facility] Comment on above: Performed By: #### P TT #### [facility] [address] [place] [address] Erythrocyte distribution width (RBC) [Ratio] 14.6 % Critically high 11.5-14.5 [facility] Comment on above: Performed By: #### P TT #### [facility] [address] [place] [address] Hematocrit (Bld) [Volume fraction] 33.3 % Low 37.0-47.0 [facility] Comment on above: Performed By: #### P TT #### [facility] [address] [place] [address] Hemoglobin (Bld) [Mass/Vol] 10.9 g/dL Low 12.0-16.0 [facility] Comment on above: Performed By: #### P TT #### [facility] [address] [place] [address] MCH (RBC) [Entitic mass] 29.8 pg Normal 27.0-31.3 [facility] Comment on above: Performed By: #### P TT #### [facility] [address] [place] [address] MCHC (RBC) [Mass/Vol] 32.9 % Low 33.0-37.0 [facility] Comment on above: Performed By: #### P TT #### [facility] [address] [place] [address] MCV (RBC) [Entitic vol] 90.7 fL Normal 82.0-100.[address] [facility] Comment on above: Performed By: #### P TT #### [facility] [address] [place] [address] Platelets (Bld) [#/Vol] 315 10*3/uL Normal 130-400 [facility] Comment on above: Performed By: #### P TT #### [facility] [address] [place] [address] RBC (Bld) [#/Vol] 3.67 10*6/uL Low 4.20-5.40 [facility] Comment on above: Performed By: #### P TT #### [facility] [address] [place] [address] WBC (Bld) [#/Vol] 20.8 10*3/uL Critically high 4.8-10.8 [facility] Comment on above: Performed By: #### P TT #### [facility] [address] [place] [address] Comprehensive Metabolic Pane l reflex Mgon 11-15-2018 Albumin [Mass/Vol] 3.3 g/dL Low 3.5-4.6 [facility] Comment on above: Performed By: #### P TT #### [facility] [address] [place] [address] ALP [Catalytic activity/Vol] 71 U/L Normal 40-130 [facility] Comment on above: Performed By: #### P TT #### [facility] [address] [place] [address] ALT [Catalytic activity/Vol] 12 U/L Normal 0-33 [facility] Comment on above: Performed By: #### P TT #### [facility] [address] [place] [address] Anion gap [Moles/Vol] 11 mmol/L Normal 9-15 [facility] Comment on above: Performed By: #### P TT #### [facility] [address] [place] [address] AST [Catalytic activity/Vol] 28 U/L Normal 0-35 [facility] Comment on above: Performed By: #### P TT #### [facility] [address] [place] [address] Bilirubin [Mass/Vol] 0.4 mg/dL Normal 0.2-0.7 [facility] Comment on above: Performed By: #### P TT #### [facility] [address] [place] [address] Calcium [Mass/Vol] 9.1 mg/dL Normal 8.5-9.9 [facility] Comment on above: Performed By: #### P TT #### [facility] [address] [place] [address] Chloride [Moles/Vol] 98 mmol/L Normal 95-107 [facility] Comment on above: Performed By: #### P TT #### [facility] [address] [place] [address] CO2 [Moles/Vol] 27 mmol/L Normal 20-31 [facility] Comment on above: Performed By: #### P TT #### [facility] [address] [place] [address] Creatinine [Mass/Vol] 0.59 mg/dL Normal 0.50-0.90 [facility] Comment on above: Performed By: #### P TT #### [facility] [address] [place] [address] GFR/1.73 sq M predicted among blacks MDRD (S/P/Bld) [Vol rate/Area] mL/min/{1.73_m2} Normal >60 [facility] Comment on above: Result Comment: >60 mL/min/1.73m2 EGFR, calc. for ages 18 and older using the MDRD formula (not corrected for weight), is valid for stable renal function. Performed By: #### P TT #### [facility] [address] [place] [address] GFR/1.73 sq M.predicted MDRD (S/P/Bld) [Vol rate/Area] mL/min/{1.73_m2} Normal >60 [facility] Comment on above: Result Comment: >60 mL/min/1.73m2 EGFR, calc. for ages 18 and older using the MDRD formula (not corrected for weight), is valid for stable renal function. Performed By: #### P TT #### [facility] [address] [place] [address] Globulin (S) [Mass/Vol] 3.2 g/dL Normal 2.3-3.5 [facility] Comment on above: Performed By: #### P TT #### [facility] [address] [place] [address] Glucose [Mass/Vol] 123 mg/dL Critically high 70-99 [facility] Comment on above: Performed By: #### P TT #### [facility] [address] [place] [address] Potassium reflex Mg 3.8 mEq/L Normal 3.4-4.9 [facility] Comment on above: Performed By: #### P TT #### [facility] [address] [place] [address] Protein [Mass/Vol] 6.5 g/dL Normal 6.3-8.0 [facility] Comment on above: Performed By: #### P TT #### [facility] [address] [place] [address] Sodium [Moles/Vol] 136 mmol/L Normal 135-144 [facility] Comment on above: Performed By: #### P TT #### [facility] [address] [place] [address] Urea nitrogen [Mass/Vol] 6 mg/dL Low 8-23 [facility] Comment on above: Performed By: #### P TT #### [facility] [address] [place] [address] Culture, Blood 2on 9 Culture, Blood 2 ORDERED BY: ADDY COKER SOURCE: Blood COLLECTED: 11/15/18 16:37 ANTIBIOTICS AT DI.: RECEIVED : 11/15/18 16:42 Culture, Blood 2 FINAL 11/20/18 18:15 No growth after 5 days of incubation. Normal [facility] Comment on above: Performed By: #### C MP #### [facility] [address] [place] [address] Culture, Urineon 11-15-2018 Culture, Urine ORDERED BY: ADDY COKER SOURCE: Urine Clean Catch COLLECTED: 11/15/18 19:05 ANTIBIOTICS AT DI.: RECEIVED : 11/15/18 19:05 Culture, Urine FINAL 11/17/18 07:28 No growth 24 hours Normal [facility] Comment on above: Performed By: #### C MP #### [facility] [address] [place] [address] URINE RT REFLEX TO CULTUREon 11-15-2018 Bilirubin Urine Negative Negative [place], [place] Blood, Urine TRACE Abnormal Negative [place] Clarity, UA Clear Clear [place] Color, UA Yellow Straw/Yello w [place] Glucose, Ur Negative Negative mg/dL [place] Interpretation and review of laboratory results Abnormal [place] Ketones Ql (U) Negative Negative mg/dL [place] Leukocyte esterase Test strip Ql (U) Negative Negative [place] Nitrite, Urine Negative Negative [place] pH, UA 7.0 [place] Protein (U) [Mass/Vol] 30 mg/dL Abnormal Negative [place], [place] Specific [place], UA 1.014 [place], [place] Urine Reflex to Culture YES M [place] Urobilinogen, Urine 0.2 <2.0 E.U./dL [place] US CAROTID ARTERY BILATERALo n 11-15-2018 [...] Mohsen Childers MD 11/16/18 Final result Normal [facility] Urinalysis, reflex to cultur kendall 11-15-2018 Bilirubin Ql (U) Negative Normal Negative [facility] Comment on above: Performed By: #### P TT #### [facility] [address] [place] [address] Clarity (U) Clear Normal Clear [facility] Comment on above: Performed By: #### P TT #### [facility] [address] [place] [address] Color (U) Yellow Normal Straw/Refugio [facility] Comment on above: Performed By: #### P TT #### [facility] [address] [place] [address] Glucose Ql (U) Negative Normal Negative [facility] Comment on above: Performed By: #### P TT #### [facility] [address] [place] [address] Hemoglobin Ql (U) TRACE Abnormal Negative [facility] Comment on above: Performed By: #### P TT #### [facility] [address] [place] [address] Ketones Ql (U) Negative Normal Negative [facility] Comment on above: Performed By: #### P TT #### [facility] [address] [place] [address] Leukocyte esterase Test strip Ql (U) Negative Normal Negative [facility] Comment on above: Performed By: #### P TT #### [facility] [address] [place] [address] Nitrite Ql (U) Negative Normal Negative [facility] Comment on above: Performed By: #### P TT #### [facility] [address] [place] [address] pH (U) 7.0 [pH] Normal 5.0-9.0 [facility] Comment on above: Performed By: #### P TT #### [facility] [address] [place] [address] Protein Ql (U) 30 mg/dL Abnormal Negative [facility] Comment on above: Performed By: #### P TT #### [facility] [address] [place] [address] Specific gravity (U) [Rel density] 1.014 Normal 1.005-1.03 [facility] Comment on above: Performed By: #### P TT #### [facility] [address] [place] [address] Urine Reflexed to Culture YES Normal [facility] Comment on above: Performed By: #### P TT #### [facility] [address] [place] [address] Urobilinogen Qn (U) 0.2 {Juan'U}/dL Normal < 2.0 [facility] Comment on above: Performed By: #### P TT #### [facility] [address] [place] [address] XR CHEST PORTABLEon 11-16-19 19 XR CHEST [...] Pearl Varghese MD 11/16/18 Final result Normal [facility] Basic Metabolic Panel Reflex Mgon 11-14-2018 Anion gap [Moles/Vol] 10 mmol/L Normal 9-15 [facility] Comment on above: Performed By: #### P T #### [facility] [address] [place] [address] Calcium [Mass/Vol] 8.4 mg/dL Low 8.5-9.9 [facility] Comment on above: Performed By: #### P T #### [facility] [address] [place] [address] Chloride [Moles/Vol] 100 mmol/L Normal 95-107 [facility] Comment on above: Performed By: #### P T #### [facility] [address] [place] [address] CO2 [Moles/Vol] 25 mmol/L Normal 20-31 [facility] Comment on above: Performed By: #### P T #### [facility] [address] [place] [address] Creatinine [Mass/Vol] 0.66 mg/dL Normal 0.50-0.90 [facility] Comment on above: Performed By: #### P T #### [facility] [address] [place] [address] GFR/1.73 sq M predicted among blacks MDRD (S/P/Bld) [Vol rate/Area] mL/min/{1.73_m2} Normal >60 [facility] Comment on above: Result Comment: >60 mL/min/1.73m2 EGFR, calc. for ages 18 and older using the MDRD formula (not corrected for weight), is valid for stable renal function. Performed By: #### P T #### [facility] [address] [place] [address] GFR/1.73 sq M.predicted MDRD (S/P/Bld) [Vol rate/Area] mL/min/{1.73_m2} Normal >60 [facility] Comment on above: Result Comment: >60 mL/min/1.73m2 EGFR, calc. for ages 18 and older using the MDRD formula (not corrected for weight), is valid for stable renal function. Performed By: #### P T #### [facility] [address] [place] [address] Glucose [Mass/Vol] 144 mg/dL Critically high 70-[address] [facility] Comment on above: Performed By: #### P T #### [facility] [address] [place] [address] Potassium reflex Mg 4.1 mEq/L Normal 3.4-4.9 [facility] Comment on above: Performed By: #### P T #### [facility] [address] [place] [address] Sodium [Moles/Vol] 135 mmol/L Normal 135-144 [facility] Comment on above: Performed By: #### P T #### [facility] [address] [place] [address] Urea nitrogen [Mass/Vol] 6 mg/dL Low 8-23 [facility] Comment on above: Performed By: #### P T #### [facility] [address] [place] [address] CBC With Platelet and Differ entialon 11-14-2018 Basophils (Bld) [#/Vol] 0.1 10*3/uL Normal 0.0-0.2 [facility] Comment on above: Performed By: #### P T #### [facility] [address] [place] [address] Basophils/100 WBC (Bld) 0.5 % Normal [facility] Comment on above: Performed By: #### P T #### [facility] [address] [place] [address] Eosinophils (Bld) [#/Vol] 0.1 10*3/uL Normal 0.0-0.7 [facility] Comment on above: Performed By: #### P T #### [facility] [address] [place] [address] Eosinophils/100 WBC (Bld) 0.8 % Normal [facility] Comment on above: Performed By: #### P T #### [facility] [address] [place] [address] Erythrocyte distribution width (RBC) [Ratio] 14.1 % Normal 11.5-14.5 [facility] Comment on above: Performed By: #### P T #### [facility] [address] [place] [address] Hematocrit (Bld) [Volume fraction] 35.4 % Low 37.0-47.0 [facility] Comment on above: Performed By: #### P T #### [facility] [address] [place] [address] Hemoglobin (Bld) [Mass/Vol] 11.7 g/dL Low 12.0-16.0 [facility] Comment on above: Performed By: #### P T #### [facility] [address] [place] [address] Lymphocytes (Bld) [#/Vol] 2.7 10*3/uL Normal 1.0-4.8 [facility] Comment on above: Performed By: #### P T #### [facility] [address] [place] [address] Lymphocytes/100 WBC (Bld) 15.7 % Normal [facility] Comment on above: Performed By: #### P T #### [facility] [address] [place] [address] MCH (RBC) [Entitic mass] 29.7 pg Normal 27.0-31.3 [facility] Comment on above: Performed By: #### P T #### [facility] [address] [place] [address] MCHC (RBC) [Mass/Vol] 33.1 % Normal 33.0-37.0 [facility] Comment on above: Performed By: #### P T #### [facility] [address] [place] [address] MCV (RBC) [Entitic vol] 89.6 fL Normal 82.0-100.[address] [facility] Comment on above: Performed By: #### P T #### [facility] [address] [place] [address] Monocytes (Bld) [#/Vol] 1.4 10*3/uL Critically high 0.2-0. 8 [facility] Comment on above: Performed By: #### P T #### [facility] [address] [place] [address] Monocytes/100 WBC (Bld) 7.9 % Normal [facility] Comment on above: Performed By: #### P T #### [facility] [address] [place] [address] Neutrophils (Bld) [#/Vol] 12.8 10*3/uL Critically high 1.4-6.5 [facility] Comment on above: Performed By: #### P T #### [facility] [address] [place] [address] Neutrophils/100 WBC (Bld) 75.1 % Normal [facility] Comment on above: Performed By: #### P T #### [facility] [address] [place] [address] Platelets (Bld) [#/Vol] 345 10*3/uL Normal 130-400 [facility] Comment on above: Performed By: #### P T #### [facility] [address] [place] [address] RBC (Bld) [#/Vol] 3.95 10*6/uL Low 4.20-5.40 [facility] Comment on above: Performed By: #### P T #### [facility] [address] [place] [address] WBC (Bld) [#/Vol] 17.0 10*3/uL Critically high 4.8-10.8 [facility] Comment on above: Performed By: #### P T #### [facility] [address] [place] [address] POCT Glucoseon 11-14-2018 Glucose [Mass/Vol] 116 mg/dL Critically high 60-115 [facility] Comment on above: Performed By: #### P T #### [facility] [address] [place] [address] POC Performed on ACCU-CHEK Normal [facility] Comment on above: Performed By: #### P T #### [facility] [address] [place] [address] XR LUMBAR SPINE (2-3 VIEWS)o n 11-14-2018 [...] Mohsen Childers MD 11/14/18 Final result Normal [facility] Basic Metabolic Panel Reflex Mgon 11-13-2018 Anion gap [Moles/Vol] 13 mmol/L Normal 9-15 [facility] Comment on above: Performed By: #### P T #### [facility] [address] [place] [address] Calcium [Mass/Vol] 9.0 mg/dL Normal 8.5-9.9 [facility] Comment on above: Performed By: #### P T #### [facility] [address] [place] [address] Chloride [Moles/Vol] 101 mmol/L Normal 95-107 [facility] Comment on above: Performed By: #### P T #### [facility] [address] [place] [address] CO2 [Moles/Vol] 24 mmol/L Normal 20-31 [facility] Comment on above: Performed By: #### P T #### [facility] [address] [place] [address] Creatinine [Mass/Vol] 0.62 mg/dL Normal 0.50-0.90 [facility] Comment on above: Performed By: #### P T #### [facility] [address] [place] [address] GFR/1.73 sq M predicted among blacks MDRD (S/P/Bld) [Vol rate/Area] mL/min/{1.73_m2} Normal >60 [facility] Comment on above: Result Comment: >60 mL/min/1.73m2 EGFR, calc. for ages 18 and older using the MDRD formula (not corrected for weight), is valid for stable renal function. Performed By: #### P T #### [facility] [address] [place] [address] GFR/1.73 sq M.predicted MDRD (S/P/Bld) [Vol rate/Area] mL/min/{1.73_m2} Normal >60 [facility] Comment on above: Result Comment: >60 mL/min/1.73m2 EGFR, calc. for ages 18 and older using the MDRD formula (not corrected for weight), is valid for stable renal function. Performed By: #### P T #### [facility] [address] [place] [address] Glucose [Mass/Vol] 136 mg/dL Critically high 70-[address] [facility] Comment on above: Performed By: #### P T #### [facility] [address] [place] [address] Potassium reflex Mg 3.6 mEq/L Normal 3.4-4.9 [facility] Comment on above: Performed By: #### P T #### [facility] [address] [place] [address] Sodium [Moles/Vol] 138 mmol/L Normal 135-144 [facility] Comment on above: Performed By: #### P T #### [facility] [address] [place] [address] Urea nitrogen [Mass/Vol] 7 mg/dL Low 8-23 [facility] Comment on above: Performed By: #### P T #### [facility] [address] [place] [address] CBC With Platelet No Differe ntialon 11-13-2018 Erythrocyte distribution width (RBC) [Ratio] 14.2 % Normal 11.5-14.5 [facility] Comment on above: Performed By: #### P T #### [facility] [address] [place] [address] Hematocrit (Bld) [Volume fraction] 40.3 % Normal 37.0-47.0 [facility] Comment on above: Performed By: #### P T #### [facility] [address] [place] [address] Hemoglobin (Bld) [Mass/Vol] 13.1 g/dL Normal 12.0-16.0 [facility] Comment on above: Performed By: #### P T #### [facility] [address] [place] [address] MCH (RBC) [Entitic mass] 29.1 pg Normal 27.0-31.3 [facility] Comment on above: Performed By: #### P T #### [facility] [address] [place] [address] MCHC (RBC) [Mass/Vol] 32.4 % Low 33.0-37.0 [facility] Comment on above: Performed By: #### P T #### [facility] [address] [place] [address] MCV (RBC) [Entitic vol] 89.9 fL Normal 82.0-100.[address] [facility] Comment on above: Performed By: #### P T #### [facility] [address] [place] [address] Platelets (Bld) [#/Vol] 394 10*3/uL Normal 130-400 [facility] Comment on above: Performed By: #### P T #### [facility] [address] [place] [address] RBC (Bld) [#/Vol] 4.48 10*6/uL Normal 4.20-5.40 [facility] Comment on above: Performed By: #### P T #### [facility] [address] [place] [address] WBC (Bld) [#/Vol] 11.8 10*3/uL Critically high 4.8-10.8 [facility] Comment on above: Performed By: #### P T #### [facility] [address] [place] [id number] Culture, MRSA Screenon 11-13 Culture, MRSA Screen ORDERED BY: BRENNAN HERRON SOURCE: Nares COLLECTED: 11/13/18 09:29 ANTIBIOTICS AT DI.: RECEIVED : 11/13/18 09:29 Culture, MRSA Screen FINAL 11/14/18 08:02 No MRSA isolated Normal [facility] Comment on above: Performed By: #### P T #### [facility] [address] [place] [id number] FLUORO FOR SURGICAL PROCEDUR ESon 11-13-2018 FLUORO [...] Mohsen Childers MD 11/13/18 Final result Normal [facility] Surgical Specimenon 11-14-19 19 Surgical Specimen [facility] [address] [place] [address], [place] [id number] FINAL SURGICAL PATHOLOGY REPORT Patient Name: HIRAM MADRID Accession No: [id number] Age Sex: 1935 Location: [facility] [id number] Account No: [id number] Collected: 11/13/2018 Med Rec No: [id number] Received: 11/14/2018 Attend Phys: LENNY CORRAL Completed: [...] two cassettes after brief decalcification. UVALDO/NIKKY CPT: 18902 X1 89140 X1 STANLEY GRAFF M.D. 11/15/2018 Electronically signed out by Page 1 of 1 [facility] Comment on above: Performed By: #### P TT #### [facility] [address] [place] [address] Type and Screen Capture 3 sc rn cellon 11-13-2018 Type and Screen Capture 3 scrn cell PATIENT: MERCY GANDHI LOC: ERICK,ORKAMRONOL,NON BILL# : [id number] : 1935 SEX: F ORDERED BY: GOPAL AMIN ORDERED : 11/13/2018 08:10 COLLECTED: 11/13/2018 09:24 ORDER : [id number] RECEIVED : 11/13/2018 09:24 TEST NAME RESULT UNITS RANGES ABN FL ST ABORH Capture A POS F Antibody 3 Cell Scrn Captu NEG F Normal [facility] Comment on above: Performed By: #### T S3C #### [facility] [address] [place] [address] XR SPINE ENTIRE (2-3 VIEWS)o n 11-13-2018 [...] Mohsen Childers MD 11/13/18 Final result Normal [facility] MRI LUMBAR SPINE W WO CONTRA STon [...] UNDERLYING PATHOLOGY OR RECENT INJURY. [facility] [place], [place] Joseph, Chpo Incoming Radiant Results From [employer] [facility] - 11/05/2018 3:07 PM EDT EXAMINATION: MRI [...] SIGNS OF UNDERLYING PATHOLOGY OR RECENT INJURY. [facility], [place] MRI LUMBAR SPINE W WO CONTRAST EXAMINATION: [...] Pearl Varghese MD 11/05/18 Final result Normal [facility] Otheron 11-05-2018 Joseph, Chpo Incoming Radiant Results From [employer] - 11/05/2018 1:21 PM EDT EXAMINATION: XR [...] AND POSTOPERATIVE FINDINGS, WITHOUT ACUTE SUPERIMPOSED ABNORMALITY. [place] EXAMINATION: XR LUMB AR SPINE (MIN [...] AND POSTOPERATIVE FINDINGS, WITHOUT ACUTE SUPERIMPOSED ABNORMALITY. [place] XR CHEST (2 VW)on 11-05-2018 XR [...] Pearl Varghese MD 11/05/18 Final result Normal [facility] XR LUMBAR SPINE (MIN 4 VIEWS )on [...] Pearl Varghese MD 11/05/18 Final result Normal [facility] APTTon 11-04-2018 aPTT Coag (Bld) [Time] 27.9 s [facility] [place], [place] Comment on above: Effective 09/06/2018: Please note methodology and/or reference ranges have changed. aPTT - Heparin Therapeutic Range: 74.0 - 106 seconds C-Reactive Proteinon 11-04- 019 CRP [Mass/Vol] 1.3 mg/L Normal 0.0-5.0 [facility] Comment on above: Performed By: #### C RP #### [facility] [address] [place] [address] CRP [Mass/Vol] 1.3 mg/L 0 - 5 mg/L [place], [place] CBC Auto Differentialon 10-21 Basophils (Bld) [#/Vol] 0.1 10*3/uL 0 - 0.2 K/uL [place] Basophils/100 WBC (Bld) 1.1 % [place] Eosinophils (Bld) [#/Vol] 0.2 10*3/uL 0 - 0.7 K/uL [place] Eosinophils/100 WBC (Bld) 1.3 % [place] Erythrocyte distribution width (RBC) [Ratio] 13.9 % 11.5 - 14.5 % [place] Hematocrit (Bld) [Volume fraction] 41.3 % 37 - 47 % [place] Hemoglobin (Bld) [Mass/Vol] 14.3 g/dL 12 - 16 g/dL [place] Interpretation and review of laboratory results Abnormal [place] Lymphocytes (Bld) [#/Vol] 3.5 10*3/uL 1 - 4.8 K/uL [place] Lymphocytes/100 WBC (Bld) 28.2 % [place] MCH (RBC) [Entitic mass] 30.5 pg 27 - 31.3 pg [place] MCHC (RBC) [Mass/Vol] 34.6 % 33 - 37 % [place] MCV (RBC) [Entitic vol] 88.0 fL 82 - 100 fL [place] Monocytes (Bld) [#/Vol] 0.8 10*3/uL 0.2 - 0.8 K/uL [place] Monocytes/100 WBC (Bld) 6.8 % [place] Neutrophils Absolute 7.7 K/uL High 1.4 - 6 .5 K/uL [place] Neutrophils/100 WBC (Bld) 62.6 % [place] Platelets (Bld) [#/Vol] 435 10*3/uL High 130 - 400 K/uL [place] RBC (Bld) [#/Vol] 4.69 10*6/uL [place] WBC (Bld) [#/Vol] 12.4 10*3/uL High 4.8 - 10.8 K/uL [place] CBC With Platelet and Differ entialon 11-04-2018 Basophils (Bld) [#/Vol] 0.1 10*3/uL Normal 0.0-0.2 [facility] Comment on above: Performed By: #### C BCWD #### [facility] [address] [place] [address] Basophils/100 WBC (Bld) 1.1 % Normal [facility] Comment on above: Performed By: #### C BCWD #### [facility] [address] [place] [address] Eosinophils (Bld) [#/Vol] 0.2 10*3/uL Normal 0.0-0.7 [facility] Comment on above: Performed By: #### C BCWD #### [facility] [address] [place] [address] Eosinophils/100 WBC (Bld) 1.3 % Normal [facility] Comment on above: Performed By: #### C BCWD #### [facility] [address] [place] [address] Erythrocyte distribution width (RBC) [Ratio] 13.9 % Normal 11.5-14.5 [facility] Comment on above: Performed By: #### C BCWD #### [facility] [address] [place] [address] Hematocrit (Bld) [Volume fraction] 41.3 % Normal 37.0-47.0 [facility] Comment on above: Performed By: #### C BCWD #### [facility] [address] [place] [address] Hemoglobin (Bld) [Mass/Vol] 14.3 g/dL Normal 12.0-16.0 [facility] Comment on above: Performed By: #### C BCWD #### [facility] [address] [place] [address] Lymphocytes (Bld) [#/Vol] 3.5 10*3/uL Normal 1.0-4.8 [facility] Comment on above: Performed By: #### C BCWD #### [facility] [address] [place] [address] Lymphocytes/100 WBC (Bld) 28.2 % Normal [facility] Comment on above: Performed By: #### C BCWD #### [facility] [address] [place] [address] MCH (RBC) [Entitic mass] 30.5 pg Normal 27.0-31.3 [facility] Comment on above: Performed By: #### C BCWD #### [facility] [address] [place] [address] MCHC (RBC) [Mass/Vol] 34.6 % Normal 33.0-37.0 [facility] Comment on above: Performed By: #### C BCWD #### [facility] [address] [place] [address] MCV (RBC) [Entitic vol] 88.0 fL Normal 82.0-100.0 [facility] Comment on above: Performed By: #### C BCWD #### [facility] [address] [place] [address] Monocytes (Bld) [#/Vol] 0.8 10*3/uL Normal 0.2-0.8 [facility] Comment on above: Performed By: #### C BCWD #### [facility] [address] [place] [address] Monocytes/100 WBC (Bld) 6.8 % Normal M [facility] [facility] Comment on above: Performed By: #### C BCWD #### [facility] [address] [place] [address] Neutrophils (Bld) [#/Vol] 7.7 10*3/uL Critically high 1.4-6.5 [facility] Comment on above: Performed By: #### C BCWD #### [facility] [address] [place] [address] Neutrophils/100 WBC (Bld) 62.6 % Normal [facility] Comment on above: Performed By: #### C BCWD #### [facility] [address] [place] [address] Platelets (Bld) [#/Vol] 435 10*3/uL Critically high 130-40 0 [facility] Comment on above: Performed By: #### C BCWD #### [facility] [address] [place] [address] RBC (Bld) [#/Vol] 4.69 10*6/uL Normal 4.20-5.40 [facility] Comment on above: Performed By: #### C BCWD #### [facility] [address] [place] [address] WBC (Bld) [#/Vol] 12.4 10*3/uL Critically high 4.8-10.8 [facility] Comment on above: Performed By: #### C BCWD #### [facility] [address] [place] [address] Comprehensive Metabolic Pane bebeto 11-04-2018 Anion gap [Moles/Vol] 14 mmol/L Normal 9-15 [facility] Comment on above: Order Comment: CALL Graf LCED tel. [phone], Potassium results called to and read back by onofre Millan RN, 11/04/2018 16:24, by WEBAM Performed By: #### C MP #### [facility] [address] [place] [address] Bilirubin [Mass/Vol] 0.4 mg/dL Normal 0.2-0.7 [facility] Comment on above: Order Comment: CALL Graf LCED tel. [phone], Potassium results called to and read back by onofre Millan RN, 11/04/2018 16:24, by WEBAM Performed By: #### C MP #### [facility] [address] [place] [address] GFR/1.73 sq M predicted among blacks MDRD (S/P/Bld) [Vol rate/Area] mL/min/{1.73_m2} Normal >60 [facility] Comment on above: Order Comment: CALL Graf LCED tel. [phone], Potassium results called to and read back by onofre Millan RN, 11/04/2018 16:24, by WEBAM Result Comment: >60 mL/min/1.73m2 EGFR, calc. for ages 18 and older using the MDRD formula (not corrected for weight), is valid for stable renal function. Performed By: #### C MP #### [facility] [address] [place] [address] GFR/1.73 sq M.predicted MDRD (S/P/Bld) [Vol rate/Area] mL/min/{1.73_m2} Normal >60 [facility] Comment on above: Order Comment: CALL Graf LCED tel. [phone], Potassium results called to and read back by onofre Millan RN, 11/04/2018 16:24, by WEBAM Result Comment: >60 mL/min/1.73m2 EGFR, calc. for ages 18 and older using the MDRD formula (not corrected for weight), is valid for stable renal function. Performed By: #### C MP #### [facility] [address] [place] [address] Albumin [Mass/Vol] 4.5 g/dL Normal 3.5-4.6 [facility] [place] Comment on above: Order Comment: CALL Graf LCED tel. [phone], Potassium results called to and read back by onofre Millan RN, 11/04/2018 16:24, by WEBAM Performed By: #### C MP #### [facility] [address] [place] [address] ALP [Catalytic activity/Vol] 76 U/L Normal 40-130 [facility] [place] Comment on above: Order Comment: CALL Graf LCED tel. [phone], Potassium results called to and read back by onofre Millan RN, 11/04/2018 16:24, by WEBAM Performed By: #### C MP #### [facility] [address] [facility] [address] ALT [Catalytic activity/Vol] 15 U/L Normal 0-33 [facility] [place] Comment on above: Order Comment: CALL Graf LCED tel. [phone], Potassium results called to and read back by onofre Millan RN, 11/04/2018 16:24, by WEBAM Performed By: #### C MP #### [facility] [address] [facility] [place] [address] AST [Catalytic activity/Vol] 20 U/L Normal 0-35 [facility] [place] Comment on above: Order Comment: CALL Graf LCED tel. [phone], Potassium results called to and read back by onofre Millan RN, 11/04/2018 16:24, by WEBAM Performed By: #### C MP #### [facility] [address] [facility] [place] [address] Calcium [Mass/Vol] 9.9 mg/dL Normal 8.5-9.9 [facility] [place] Comment on above: Order Comment: CALL Graf LCED tel. [phone], Potassium results called to and read back by onofre Millan RN, 11/04/2018 16:24, by WEBAM Performed By: #### C MP #### [facility] [address] [place] [address] Chloride [Moles/Vol] 96 mmol/L Normal 95-107 [facility], [place] Comment on above: Order Comment: CALL Graf LCED tel. [phone], Potassium results called to and read back by onofre Millan RN, 11/04/2018 16:24, by WEBAM Performed By: #### C MP #### [facility] [address] [place] [address] CO2 [Moles/Vol] 24 mmol/L Normal 20-31 [place], [place] Comment on above: Order Comment: CALL Graf LCED tel. [phone], Potassium results called to and read back by onofre Millan RN, 11/04/2018 16:24, by WEBAM Performed By: #### C MP #### [facility] [address] [place] [address] Creatinine [Mass/Vol] 0.67 mg/dL Normal 0.50-0.90 [place], [place] Comment on above: Order Comment: CALL Graf LCED tel. [phone], Potassium results called to and read back by onofre Millan RN, 11/04/2018 16:24, by WEBAM Performed By: #### C MP #### [facility] [address] [facility] [place] [address] Globulin (S) [Mass/Vol] 2.8 g/dL Normal 2.3-3.5 [place], [place] Comment on above: Order Comment: CALL Graf LCED tel. [phone], Potassium results called to and read back by onofre Millan RN, 11/04/2018 16:24, by WEBAM Performed By: #### C MP #### [facility] [address] [place] [address] Glucose [Mass/Vol] 109 mg/dL Critically high 70-99 [place] Comment on above: Order Comment: CALL Graf LCED tel. [phone], Potassium results called to and read back by onofre Millan RN, 11/04/2018 16:24, by WEBAM Performed By: #### C MP #### [facility] [address] [place] [address] Potassium [Moles/Vol] 3.0 mmol/L Critically low 3.4-4.9 [place] Comment on above: Order Comment: CALL Graf LCED tel. [phone], Potassium results called to and read back by onofre Millan RN, 11/04/2018 16:24, by WEBAM Performed By: #### C MP #### [facility] [address] [place] [address] Protein [Mass/Vol] 7.3 g/dL Normal 6.3-8.0 [place] Comment on above: Order Comment: CALL Graf LCED tel. [phone], Potassium results called to and read back by onofre Millan RN, 11/04/2018 16:24, by WEBAM Performed By: #### C MP #### [facility] [address] [place] [address] Sodium [Moles/Vol] 134 mmol/L Low 135-144 [place] Comment on above: Order Comment: CALL Graf ED tel. [phone], Potassium results called to and read back by onofre Millan RN, 11/04/2018 16:24, by WEBAM Performed By: #### C MP #### [facility] [address] [place] [address] Urea nitrogen [Mass/Vol] 8 mg/dL Normal 8-23 [place] Comment on above: Order Comment: CALL Graf ED tel. [phone], Potassium results called to and read back by onofre Millan RN, 11/04/2018 16:24, by WEBAM Performed By: #### C MP #### [facility] [address] [facility] [address] Anion gap [Moles/Vol] 14 mmol/L [place], [place] Bilirubin Ql (U) 0.4 mg/dL 0.2 - 0.7 mg/dL [place], [place] GFR >60.0 >60 [place] Comment on above: >60 mL/min/1.73m2 EG FR, calc. for ages 18 and older using the MDRD formula (not corrected for weight), is valid for stable renal function. GFR Non- >60.0 >60 [place] Comment on above: >60 mL/min/1.73m2 EG FR, calc. for ages 18 and older using the MDRD formula (not corrected for weight), is valid for stable renal function. Interpretation and review of laboratory results Abnormal [place], [place] Potassium [Moles/Vol] CALL Graf LCED tel . [phone], Potassium results called to and read back by onofre Millan RN, 11/04/2018 16:24, by TAMMY [place] Partial Thromboplastin Timeo n 11-04-2018 aPTT Coag (Bld) [Time] 27.9 s Normal 24.4-36.8 [facility] Comment on above: Result Comment: Effe ctive 09/06/2018: Please note methodology and/or reference ranges have changed. aPTT - Heparin Therapeutic Range: 74.0 - 106 seconds Performed By: #### P TT #### [facility] [address] [facility] [address] Prothrombin Timeon 9 INR Coag (PPP) [Relative time] 0.9 {INR} Normal [facility] Comment on above: Result Comment: Warf camden Therapy INR Therapeutic: 2.0-3.0 With Mechanical Valve: >2.5 Low-intensity Therapeutic Range: 1.5-2.0 Mod-intensity Therapeutic Range: 2.0-3.0 High-intensity Therapeutic Range: 2.5-3.5 HIgh-intensity Therapeutic Range: 3.0-4.0 Common Critical/Alarm Value: 5.0 Common Upper Limit Reported: 10.0 Effective 08/30/2018: Please note methodology and/or reference ranges have changed. Performed By: #### P T #### [facility] [address] [facility] [address] PT Coag (PPP) [Time] 12.1 s Low 12.3-14.9 [facility] Comment on above: Result Comment: Effe ctive 08/30/18 Please note methodology and/or reference ranges have changed. Performed By: #### P T #### [facility] [address] [place] [address] Protime-INRon 11-04-2018 INR Coag (PPP) [Relative time] 0.9 {INR} [place], [place] Comment on above: Warfarin Therapy IN R Therapeutic: 2.0-3.0 With Mechanical Valve: >2.5 Low-intensity Therapeutic Range: 1.5-2.0 Mod-intensity Therapeutic Range: 2.0-3.0 High-intensity Therapeutic Range: 2.5-3.5 HIgh-intensity Therapeutic Range: 3.0-4.0 Common Critical/Alarm Value: 5.0 Common Upper Limit Reported: 10.0 Effective 08/30/2018: Please note methodology and/or reference ranges have changed. Interpretation and review of laboratory results Abnormal [place] PT Coag (PPP) [Time] 12.1 s Low [place] Comment on above: Effective 08/30/18 Please note methodology and/or reference ranges have changed. Sedimentation Rateon 019 Sedimentation Rate 12 mm Normal 0-30 [facility] Comment on above: Performed By: #### E SR #### [facility] [address] [place] [address] Sed Rate 12 mm 0 - 30 mm [place], [place] Vital Signs Date Time Vital Sign Value Performing Clinician Ivonne ledesma 12-22-2022 11:40-0400 Blood Pressure Location MIKAYLA WEISS [facility] 12-22-2022 11:40-0400 Diastolic blood pressure 84 mm[Hg] MIKAYLA WEISS [facility] 12-22-2022 11:40-0400 Systolic blood pressure 124 mm[Hg] MIKAYLA WEISS [facility] 08-06-2022 00:10-0400 Body temperature 97.3 [degF] MD Addy Daniels Work Phone: [facility] 08-06-2022 00:10-0400 Diastolic blood pressure 74 mm[Hg] MD Addy Daniels Work Phone: [facility] 08-06-2022 00:10-0400 Heart rate 80 /min MD Addy Daniels Work Phone: [facility] 08-06-2022 00:10-0400 Respiratory rate 18 /min MD Addy Daniels Work Phone: [facility] 08-06-2022 00:10-0400 SaO2% (BldA) [Mass fraction] 96 % MD Addy Daniels Work Phone: [facility] 08-06-2022 00:10-0400 Systolic blood pressure 177 mm[Hg] MD Addy Daniels Work Phone: [facility] 08-05-2022 19:51-0400 Body height 154.94 cm MD Addy Daniels Work Phone: [facility] 08-05-2022 19:51-0400 Body weight 67.6 kg MD Addy Daniels Work Phone: [facility] 11-20-2018 07:02-0400 Body Temperature 97 [degF] [facility] [place] 11-20-2018 07:02-0400 BP Diastolic 61 mm[Hg] [facility] [place] 11-20-2018 07:02-0400 BP Systolic 153 mm[Hg] [facility] [place] 11-20-2018 07:02-0400 Pulse (Heart Rate) 75 /min [facility] [place] 11-20-2018 07:02-0400 Pulse Oximetry 97 % [facility] [place] 11-20-2018 07:02-0400 Respiratory Rate 17 /min [facility] [place] 11-17-2018 05:54-0400 BMI (Body Mass Index) 27.62 kg/m2 [facility] [place] 11-17-2018 05:54-0400 Body weight 66.3 kg Mary Vega [facility] 11-15-2018 15:58-0400 Height 154.9 cm Mary Vega [facility] 11-05-2018 07:30-0400 BP Diastolic 57 mm[Hg] [facility] , [place] 11-05-2018 07:30-0400 BP Systolic 135 mm[Hg] [facility] , [place] 11-05-2018 07:30-0400 Pulse (Heart Rate) 70 /min [facility] 11-05-2018 07:30-0400 Pulse Oximetry 97 % [facility] , [place] 11-04-2018 20:06-0400 Body Temperature 98.4 [degF] [facility], [place] 11-04-2018 20:06-0400 Respiratory Rate 16 /min [facility] 11-04-2018 14:56-0400 BMI (Body Mass Index) 27.4 kg/m2 [facility], [place] 11-04-2018 14:56-0400 Body weight 65.77 kg [facility] , [place] 11-04-2018 14:56-0400 Height 154.9 cm [facility] , [place] Encounters Encounter Date Encounter Type Care Provider Facility Start: 06-29-2023 ambulatory MIKAYLA Mora ty:ERIN Hoang Start: 01-11-2023 End: 01-11-[address] [facility] Start: 12-22-2022 End: 12-23-2022 ambulatory MIKAYLA WEISS Facility:ERIN Hoang Start: 12-22-2022 End: 12-22-2022 Patient encounter procedure MIKAYLA WEISS [facility] Start: 10-14-2022 End: 10-14-[address] [facility] Start: 09-06-2022 End: 09-07-2022 ambulatory Raymond HARRISON Facility:ERIN Hoang Start: 08-11-2022 End: 08-12-2022 ambulatory Raymond HARRISON Facility:CD:[id number] Start: 08-10-2022 End: 08-11-2022 ambulatory Raymond HARRISON Facility:[facility] Start: 08-09-2022 End: 08-09-2022 ambulatory Addy Daniels Facility:[facility] Start: 08-09-2022 ambulatory MIKAYLA WEISS Facility :[facility] Start: 08-05-2022 End: 08-06-2022 Emergency department patient visit Camacho Saavedray Facility:[facility] Start: 08-05-2022 End: 08-06-2022 Emergency department patient visit MD Addy Daniels Work Phone: [facility] Work Phone: Start: 06-13-2022 End: 06-14-[address] ADDY DANIELS . Facility:[facility] Start: 05-19-[address] ADDY DANIELS . Facili ty:[facility] Start: 04-18-2022 End: 04-19-[address] VALERIE DARDEN Facility:[facility] Start: 04-04-2022 End: 04-04-2022 ambulatory [facility] Start: 01-30-[address] ADDY DANIELS . Facili ty:[facility] Start: 01-04-2022 End: 01-05-[address] ADDY DANIELS . Facility:[facility] Start: 12-26-2021 End: 12-29-2021 Evaluation and management of inpatient DR ADDY DANIELS . Facility:[facility] Start: 12-02-2021 End: 01-04-2022 Pre-admission assessment Alie Santos [facility] Start: 11-30-2021 End: 12-01-[address] JESUS BRUNO Facility:[facility] Start: 11-09-2021 End: 11-10-[address] CALISTA ACEVES Facility:[facility] Start: 08-06-2021 End: 08-07-[address] VALERIE DARDEN Facility:[facility] Start: 07-28-2021 End: 07-29-[address] CALISTA ACEVES Facility:[facility] Start: 06-22-2021 End: 06-22-2021 Patient encounter procedure VALERIE DARDEN [facility] Start: 11-15-2018 End: 11-20-2018 Evaluation and management of inpatient [facility] Start: 11-15-2018 End: 11-20-2018 Evaluation and management of inpatient Mary Vega Work Phone: [facility] Comment on above: Spinal stenosis of l umbosacral region (Primary Dx); Impaired mobility; Vasovagal syncope Start: 11-13-2018 End: 11-15-2018 Evaluation and management of inpatient LENNY CORRAL [facility] Start: 11-13-2018 End: 11-15-2018 Patient encounter procedure LENNY [facility] [place] Start: 11-04-2018 End: 11-05-2018 Patient encounter procedure CALISTA KETAN [facility] Start: 11-04-2018 End: 11-05-2018 Emergency department patient visit Lenny Corral Work Phone: [facility] Comment on above: Lumbar radiculopathy (Primary Dx); Intractable low back pain Start: 04-19-2018 End: 04-20-2018 Patient encounter procedure DEFAULT PHYSICIAN Facility:[facility] Procedures Date Procedure Procedure Detail Performing Clinician [...] ICAL VTE PROPHYLAXIS CALISTA ACEVES Start: 11-15-2018 ANALYSIS SPECIALIST EVAL AND TREAT CHRIS PRESLEY KETAN Start: [...] scan extracra nial art compl bi study [employer] Work Phone: Start: 11-15-2018 Culture bacterial quanttative colony count urine Mary Gary Work Phone: Start: 11-15-2018 Urinalysis microscopic only Mary Gary Work Phone: Start: 11-15-2018 Blood count complete auto&auto difrntl wbc CALISTA ACEVES Start: 11-15-2018 Culture bacterial bl ood aerobic w/id isolates CALISTA ACEVES Start: 11-15-2018 Microscopic examinat ion of blood, culture CALISTA ACEVES Comment on above: Performed By: #### P TT #### [facility] [address] [place] [address] Start: 11-15-2018 Urnls dip stick/tabl et [...] CALISTA ACEVES Start: 11-14-2018 PULSE OXIMETRY, CONTINUOUS CALSITA ACEVES Start: 11-14-2018 IP CONSULT TO REHAB/ [...] MARQUEZ ACEVES Start: 11-14-2018 PULSE OXIMETRY, CONTINUOUS CALISAT ACEVES Start: 11-14-2018 INCENTIVE SPIROMETRY RT CALISTA [...] ACEVES Start: 11-13-2018 INTAKE AND OUTPUT MARQUEZ CAEVES Start: 11-13-2018 NEURO/VASCULAR CHECKS Blanca ACEVES Start: [...] CT Abdomen and Pelvi s WO contrast [facility] Start: 08-05-2022 CT of abdomen and pe lvis without contrast CT abdomen pelvis wo con [facility] Start: 11-19-2019 Creatinine monitoring Creatinine mon [place], [place] Start: 11-19-2019 Potassium monitoring Potassium monit [place] Start: 11-05-2019 Creatinine monitoring Creatinine mon [place], [place] Start: 11-05-2019 Potassium monitoring Potassium monit [place] Start: 12-04-2018 End: 12-04-2018 Office Visit 12/04/2018 Office Visit Neurosurgery Lenny Corral MD [address] [facility], [address] [address] [employer] Start: 11-30-2018 End: 11-30-2018 Office Visit 11/30/2018 Office Visit Neurosurgery Lenny Corral MD [address] [facility], [address] [address] [employer] Start: 11-23-2018 End: 11-23-2018 Office Visit 11/23/2018 Office Visit Neurosurgery Lenny Corral MD [address] [facility], [address] [address] [employer] Start: 11-13-2018 Annual Wellness Visi t (AWV) Annual Wellness Visit (AWV) [place] Start: 10-21-2018 Influenza vaccination Flu vaccine (# 1) [place], [place] Start: 2001 DEXA (modify frequen cy per FRAX score) DEXA (modify frequency per FRAX score) [place] Start: 2001 Pneumococcal 65+ yea rs Vaccine (1 of 2 - PCV13) Pneumococcal 65+ years Vaccine (1 of 2 - PCV13) [place] Start: 1986 Shingles Vaccine (1 of 2) Shingles Vaccine (1 of 2) [place] Start: 11-13-1955 DTaP/Tdap/Td vaccine (1 - Tdap) DTaP/Tdap/Td vaccine (1 - Tdap) [place], [place] Start: 1946 Lipid screen Lipid screen [place], [place] Culture Blood #1 Culture Blood # 1 Microbiology STAT 11/15/2018 4:37 PM EDT [place], [place] Culture Blood #2 Culture Blood # 2 Microbiology STAT 11/15/2018 4:37 PM EDT [place] End: 11-05-2018 EKG 12 Lead EKG 12 Lead ECG Routine One Time for 1 Occurrences starting 11/05/2018 until 11/05/2018 [place] Comment on above: One Time for 1 Occur rences starting 11/05/2018 until 11/05/2018 Incentive spirometry Incentive s pirometry Respiratory Care Routine Every 2hr while awake until discontinued starting 11/15/2018 [place] Comment on above: Every 2hr while awak e until discontinued starting 11/15/2018 Initiate Oxygen Ther apy Protocol Initiate Oxygen Therapy Protocol Respiratory Care Routine Daily until discontinued starting 11/15/2018 [place] Comment on above: Daily until disconti nued starting 11/15/2018 Nonrebreather mask oxygen Nonrebreather mask oxygen Respiratory Care Routine As directed - RT (PRN) until discontinued starting 11/05/2018 [place] Comment on above: As directed - RT (SD N) until discontinued starting 11/05/2018 Patient Education Kidney Stones (DC) [facility] Work Phone: Patient referral [facility] Work Phone: End: 11-15-2018 Speech and language therapy regime Speech language pathology evaluation ANALYSIS SPECIALIST Routine One Time for 1 Occurrences starting 11/15/2018 until 11/15/2018 [place] Comment on above: One Time for 1 Occur rences starting 11/15/2018 until 11/15/2018 End: 11-04-2018 Urine Reflex to Culture Urine Reflex to Culture Lab STAT One Time for 1 Occurrences starting 11/04/2018 until 11/04/2018 [place] Comment on above: One Time for 1 Occur rences starting 11/04/2018 until 11/04/2018 Immunizations Immunization Date Immunization Notes Care Provider Laxmi romero 12-20-2021 influenza virus vaccine, unspecified formulation MIKAYLA ABDULLAHI [facility] 12-21-2020 influenza virus vaccine, unspecified formulation MIKAYLA ABDULLAHI [facility] 01-09-2019 influenza virus vaccine, unspecified formulation MIKAYLA ABDULLAHI [facility] 11-29-2017 influenza virus vaccine, unspecified formulation MIKAYLA ABDULLAHI [facility] 01-02-2017 influenza virus vaccine, unspecified formulation MIKAYLA ABDULLAHI [facility] 12-06-2016 influenza virus vaccine, unspecified formulation MIKAYLA ABDULLAHI [facility] 12-11-2014 influenza virus vaccine, unspecified formulation MIKAYLA ABDULLAHI [facility] Payers Date Payer Category Payer Self-pay [id number] 2021 Unknown [id number] 2018 Medicare MEDICARE MEDICAR E PART A AND B xxxxxxxxxxx 2018-Present [phone] [place] [address] xxxxxxxxxxx [id number] 2014 Medicare [id number] 2014 Medicare MEDICARE MEDICAR E PART A AND B xxxxxxxxxx 2014-Present [phone] [address] [place] [address] xxxxxxxxxx [id number] 2014 Unknown [id number] 2014 Unknown 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 [address] xxxxxxxxxxxx 2014-Present [phone] [address] [place] [address] xxxxxxxxxxxx [id number] 1959 Medicare [id number] 1959 Self-pay [id number] 1959 Unknown [id number] 1936 Unknown [id number] 2.16.840.1.809128.3.579.2.647 1936 Unknown [id number] 2.16.840.1.506098.3.579.2.182 1936 Unknown [id number] 2.16.840.1.376244.3.579.2.182 1936 Unknown [id number] 2.16.840.1.312869.3.579.2.182 1936 Unknown [id number] 2.16.840.1.030409.3.579.2.182 1936 Unknown [id number] 2.16.840.1.563076.3.579.2.593 1936 Unknown [id number] 2.16.840.1.004436.3.579.2.593 1936 Unknown [id number] 2.16.840.1.310917.3.579.2.593 1936 Unknown [id number] 2.16.840.1.796208.3.579.2.593 1936 Unknown [id number] 2.16.840.1.945198.3.579.2.593 1936 Unknown [id number] 2.16.840.1.664862.3.579.2.593 1936 Unknown [id number] 2.16.840.1.321395.3.579.2.593 1936 Unknown [id number] 2.16.840.1.679835.3.579.2.593 1936 Unknown [id number] 2.16.840.1.425543.3.579.2.593 1936 Unknown [id number] 2.16.840.1.200677.3.579.2.593 1936 Unknown [id number] 2.16.840.1.121557.3.579.2.727 1936 Unknown [id number] 2.16.840.1.499233.3.579.2.727 1936 Unknown [id number] 2.16.840.1.670622.3.579.2.727 1936 Unknown [id number] 2.16.840.1.454599.3.579.2.727 1936 Unknown [id number] 2.16.840.1.415302.3.579.2.727 1936 Unknown [id number] 2.16.840.1.899337.3.579.2.727 Unknown Unknown [id number] 2.16.840.1.594339.3.579.2.531 Unknown [id number] 2.16.840.1.629968.3.579.2.531 Social History Date Type Detail Facility Start: 11-04-2018 End: 12-22-2022 Tobacco smoking status NHIS Never smoker [facility] Start: 11-04-2018 End: 11-19-2018 Alcohol intake Not Currently [place], [place] Sex Assigned At Not on file [place] Tobacco smoking status No Smokin g Status Entered [facility] Start: 1935 Sex Assigned At Female F [facility] Tobacco smoking status Never [facility] Medical Equipment Procedure Code Equipment Code Equipment Origin al Text Equipment Identifier Dates Graft Canc Chip 30cc [id number] - [id number] Start: 11-13-2018 Graft Canc Chip [id number] 15cc - [id number] Start: 11-13-2018 Sys Fix Reline 0 x Conn 40 50mm 5.5lp Adj [id number] Start: 11-13-2018 Jose Armando-Graft Infuse Kt Med [id number] Start: 11-13-2018 Impl Spine Cage Kamila Crv [id number] 8deg [id number] Start: 11-13-2018 Impl Spine Cage Kamila Crv [id number] 8deg [id number] Start: 11-13-2018 Screw Polyaxial Reline O 2s 6.0x55mm [id number] Start: 11-13-2018 Screw Lk Reline Opn Tulip 5.5mm [id number] Start: 11-13-2018 Impl Spine Harish Reline-O Lrdtc 5.5x70mm [id number] Start: 11-13-2018 Impl Spine Harish Reline-O 5.5x75mm [id number] Start: 11-13-2018 Functional Status Date Assessment Result Facility 12-22-2022 Functional Status N/A [facility] Clinical Notes 04-04-2022 to 01-11-2023 Note Date & Type Note Facility 01-11-2023 Note Noted 7 beat run of NSVT on 1 week holter monitor, along with SVT, PVCs Recommended to continue coreg 25 mg bid, will place 30 day monitor, and obtain treadmill cardiolite stress test for ischemic evaluation. [facility] 01-11-2023 Note Pt reports that she has had 5 syncopal episodes since this Summer- some while having a BM, and other episodes while just up and walking. [facility] 01-11-2023 Note Will monitor with ro utine echocardiogram annually unless pt has concerning symptoms [facility] 01-11-2023 Note Recommended to gorge nue ASA and pravastatin [facility] 01-11-2023 Note Hypertension is stab le Reviewed B/P log and typically in the mornings her b/p with well controlled 120's/70-80, and in the evenings can be up to 140/80 Continue all meds and will add toprol [facility] 01-11-2023 Note Continue pravastatin [facility] 01-11-2023 Note Will monitor with ro utine echocardiogram annually unless pt has concerning symptoms [facility] 01-11-2023 Note Will monitor with ro utine echocardiogram annually unless pt has concerning symptoms [facility] 01-11-2023 Note Patient here for [...] All other systems reviewed and are negative. [facility] 01-11-2023 Note [facility]TP CARDIOLOGY PROGR [...] called and was evaluated in ED at [facility]. Admits she has had a couple syncopal episodes in the bathroom while having a BM- last one was at [facility]. States she also has had a couple while just up and walking- normal Day to Day activity. Daughter states that pt is usually out for about 1 minute. Of note patient was direct admitted to the [facility] end of August for electrolyte imbalances low sodium, low potassium, and acute anemia. She was evaluated at [facility] in October for ABD pain/ syncope, [...] The patient states she was shopping in [employer] when she felt the need to have [...] a colonoscopy approximately 5 years ago at [facility]. HPI - Altered Mental Status General [...] was someone in the bathroom in the [employer] and she have to go back and [...] 3 levothyroxine (Syn (more content not included)... [facility] 12-22-2022 Hospital Discharge instructions Patient [...] transplant. Follow these instructions at home: Take ssqh-npo-ldkthre and prescription medicines only as told by [...] provider. Document Revised: 05/26/2020 Document Reviewed: 05/26/2020 [employer] Patient Education 2022 [employer]. Follow Up Care 09/06/2022 13:10:43 With:ABDULLAHI NOONAN, MIKAYLA Pereira, URL Address: [address] [place] [address] [phone] When: Unknown Comments:6 mos w/ renal fxn (per PCP) [facility] [place] 10-25-2022 Note Pt message/ call jorge [...] needs to call for appointment Lesly Alaniz BALLAST REGULATOR OPERATOR Division of Cardiology, [facility]- [phone] Pager- [phone] Email- [email or web address] 10-14-2022 Note Stable and non pitting currently [facility] 10-14-2022 Note Currently stable Pt to call for any recurrent syncope or concerns [facility] 10-14-2022 Note Mild on recent echo No concerning symptoms [facility] 10-14-2022 Note Continue ASA and statin [facility] 10-14-2022 Note Hypertension is unco ntrolled 160/75- admits this is where her b/p is at home Increase coreg to 25 mg bid, continue losartan 100 mg, hydrochlorothiazide 25 mg, and amlodipine 10 mg [facility] 10-14-2022 Note Continue pravastatin [facility] 10-14-2022 Note No concerning sympto ms Will continue to monitor with echocardiogram [facility] 10-14-2022 Note No concerning sympto ms Will continue to monitor with echocardiogram [facility] 10-14-2022 Note Patient here c/o LE edema. Says today they aren't as bad, but she states they're hard and sometimes painful. She has not had lab work since [facility] stay in July 2022. She denies chest pain, lightheadedness, and palpitations. Review of Systems Cardiovascular: Positive for dyspnea on exertion and leg swelling. Hematologic/Lymphatic: Bruises/bleeds easily. All other systems reviewed and are negative. [facility] 10-14-2022 Note UTP CARDIOLOGY PROGR [...] note patient was direct admitted to the [facility] end of August for electrolyte imbalances low [...] and non pitting currently RTC 3-6 months [facility] 04-04-2022 Note [facility] Note Chief Complaint: Patient [...] p.o. twice dominic (more content not included)... [facility] Evaluation + Plan note No data available for this section [facility] Evaluation + Plan note Future Appointments Appointment Date:06/29/2023 09:30:00 AM Scheduled Provider:MIKAYLA WEISS PA-C Location:[facility] Appointment Type:URO Office Visit [facility] Evaluation note No assessment inform ation available [facility] Work Phone: Hospital Discharge instructions No data available for this section [facility] Discharge instructions Additional Instructions Take Naprosyn [...] fevers or chills or intractable nausea vomiting. [facility] Work Phone: Progress note No data available for this section [facility] Summary Purpose Family History No Family History Records FoundNo Family History Records FoundNo Family History Records FoundNo Family History Records Found No data available for this section No Family History Records FoundNo Family History Records Found Advance Directives No Advanced Directives Records FoundDocuments on File Type Date Recorded Patient Manager Supply Chain Planning Expl anation Advance Directives and Living Will Power of Electronic Typesetting Machine Operator Latest Code Status on File Code Status Date Activated Date Inactivated Comments Full Code 11/05/2018 6:34 PM Full Code 11/04/2018 5:08 PM 11/05/2018 6:34 PM Documents on File Type Date Recorded Patient Manager Supply Chain Planning Expl anation Advance Directives and Livin g Will Advance Directives and Livin g Will 11/06/2018 1:08 AM AD info sheets Power of Electronic Typesetting Machine Operator Latest Code Status on File Code Status [...] sent through Care Everywhere. * Back Pain (Persian) documented in this encounter* Discharge Instr - [...] most local grocery stores, pharmacies, and chain [employer]-stores. ? If you have any questions about [...] Contact Information Primary Emergency Contact: Andrea Madrid [facility] Mobile Relation: Spouse Secondary Emergency Contact: Liliya Townsend Mobile Relation: Child Bell Tier needed? No Past Surgical History: Past Surgical History: Procedure Laterality Date APPENDECTOMY BACK SURGERY CHOLECYSTECTOMY LUMBAR FUSION N/A 11/13/2018 PLIF L 3-4-5 DECOMPRESSION L3, L4 performed by Lenny Corral MD at [facility] Right Immunization History: There is no immunization [...] Assisted Dressing Independent Toileting Independent Feeding Independent Community Outreach Specialist Independent Med Delivery whole Wound Care Documentation [...] Video (Video Swallowing Test): {Done Not Done Date:[id number]} Treatments at the Time of Hospital Discharge: Respiratory Treatments: Oxygen Therapy: is not on home oxygen therapy. Ventilator: - No ventilator support Rehab Therapies: Physical Therapy and Occupational Therapy Weight Bearing Status/Restrictions: No weight bearing restirctions Other Medical Equipment (for information only, NOT a DME order): walker Other Treatments: Patient's personal belongings (please select all that are sent with patient): {[facility] Belongings:[id number]} RN SIGNATURE: MANAGEMENT/SOCIAL WORK SECTION Inpatient Status Date: Patient was admitted to Inpatient Acute Rehab 11/15/18 Readmission Risk Assessment Score: Readmission Risk Risk of Unplanned Readmission: 12 Discharging to Facility/ Agency Name: Karan Sosa Address: Fax: Dialysis Facility (if applicable) Name: Address: Dialysis Schedule: Phone: Fax: Scrap Dealer/Transcribing Operators Supervisor signature: ICIAN SECTION Prognosis: Good Condition at [...] Date: 11/20/2018 Patient Name: Hiram Madrid Account: [id number] : 1935 (83 y.o.) Room: [place] [address] Diagnosis: Impaired mobility and gait secondary to [...] L4 performed by Lenny Corral MD at [facility] Right Precautions: Restrictions/Precautions: Fall [...] to increasing pain) Transfer Assistance: Independent Active Natural Resources Professor: Yes Mode of Transportation: Car 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 Hearing Exceptions: Hard of hearing/hearing concerns, [...] PM Yarely Gordon 11/20/2018 12:35 PM EDT [facility] Rehabilitation MUSIC THERAPY Date: 11/20/2018 Patient Name: Hiram Madrid Date of : 1935 (83 y.o.) Gender: female Diagnosis: Impaired mobility and gait secondary to NTSCI secondary to lumbar stenosis, radiculopathy, and spondylosis Referring Practitioner: Dr. Coker RESTRICTIONS/PRECAUTIONS: Restrictions/Precautions: Fall Risk Vision: Impaired Hearing: Exceptions to [facility] Hearing Exceptions: Hard of hearing/hearing concerns, [...] interested in having music therapy again. [] [facility] will attempt to see pt again another day, if time allows. [x] Pt's planned d/c date is before [facility] is scheduled on unit again. [] Pt NOT interested in having music therapy again. Yarely Zarate [facility] 11/20/2018 * Roselyn Schroeder OTA - 11/20/2018 9:59 AM EDT Occupational Therapy Facility/Department: [facility] Daily Treatment Note NAME: Hiram Madrid [...] 11/20/2018 9:55 AM EDT Occupational Therapy Facility/Department: [facility] Daily Treatment Note NAME: Hiram Madrid [...] device (slide rail) Walk: 6 - Modified [place] Walks at least 150 feet with an ambulatory device, orthosis or prosthesis OR requires extra amount of time OR there is concern for safety Distance Walked: 200' Wheel Chair: 0 - Activity Not Assessed/Does Not Occur Stairs: 6 - Modified [place] Safely goes up and down at least [...] from Dr. Ellis Holguin D.O., PM&R Attending [phone] [facility] [place] * Khanh White LPN - 11/19/2018 6:00 [...] 11/19/2018 2:05 PM EDT Occupational Therapy Facility/Department: [facility] Daily Treatment Note NAME: Hiram Madrid [...] EDT Physical Therapy Rehab Treatment Note Facility/Department: [facility] Room: [place] [address] NAME: Hiram Madrid : 1935 (83 y.o.) [...] EDT Progress Note Patient: Hiram Madrid Unit/Bed: [place] [address] Date of : 1935 Acct: [id number] Admitting Diagnosis: Impaired mobility [Z74.09] Spinal stenosis [...] and tentative discharge home tomorrow. Follows with flatwork presser in [place]. 11/18/18: called by bar staff regarding tachycardia. Pt was unaware of tachycardia. [...] to have + orthostatics. Denies hx of KS, CHF or arrhythmia. Follows with a flatwork presser from [place] for carotid artery disease and cardiac murmur. [...] to DC home and F/U with regular flatwork presser as outpatient Attending Supervising Physician's Attestation Statement The patient is a 83 y.o. female. I have performed a history and physical examination of the patient. I discussed the case with the physician certified teacher assistant. I reviewed the patient's Past Medical [...] EDT Physical Therapy Rehab Treatment Note Facility/Department: [facility] Room: [place] [address]- NAME: Hiram Madrid : 1935 (83 y.o.) [...] EDT Physical Therapy Rehab Treatment Note Facility/Department: [facility]: Hiram Madrid : 1935 [...] Neuromuscular Education Neuromuscular Comments: Pizano Initiated: other NUTRITIONAL SERVICES COOK finished it: pt scored a 42/56. Bed [...] education: 10 Therapeutic ex: 0 Mikayla Lindsey, NUTRITIONAL SERVICES COOK, 11/19/18 at 11:59 AM * Khanh White [...] Unit/Bed: R238/R238-01 Date of : 1935 Acct: [id number] Admitting Diagnosis: Impaired mobility [Z74.09] Spinal stenosis of lumbosacral region [M48.07] Admit Date: 11/15/2018 Hospital Day: 4 Current Medications: Scheduled Meds: cephALEXin 500 mg Oral 3 times per day zrvgwyyn-szlegoauir-qcixthuqt Topical BID enoxaparin 30 mg Subcutaneous Daily [...] woman from homewith spouse who presents to [facility] with the above deficits which [...] ms QTc Calculation (Bazett) 463 ms P [place] 58 degrees R [place] -11 degrees T [place] 5 degrees Xr Chest Standard (2 Vw) [...] from Dr. Ellis Holguin D.O., PM&R Attending [address] [place] [address] * Rachael Graf LPN - 11/18/2018 4:39 [...] and no guarding. Musculoskeletal: Back: Urine Culture [[id number]] Collected: 11/15/18 190 Order Status: Completed Specimen: Urine, clean catch Updated: 11/17/18 0728 Urine Culture, Routine No growth 24 hours Narrative: ORDERED BY: ADDY COKER SOURCE: Urine Clean Catch COLLECTED: 11/15/18 19:05 ANTIBIOTICS AT DI.: RECEIVED : 11/15/18 19:05 Culture Blood #2 [[id number]] Collected: 11/15/18 1637 Order Status: Completed Specimen: Blood Updated: 11/16/18 1815 Culture, Blood 2 No Growth to date. Any change in status will be called. Narrative: ORDERED BY: ADDY COKER SOURCE: Blood COLLECTED: 11/15/18 16:37 ANTIBIOTICS AT DI.: RECEIVED : 11/15/18 16:42 Culture Blood #1 [[id number]] Collected: 11/15/18 1637 Order Status: Completed Specimen: [...] Unit/Bed: R238/R238-01 Date of : 1935 Acct: [id number] Admitting Diagnosis: Impaired mobility [Z74.09] Spinal stenosis [...] L4 performed by Lenny Corral MD at [facility] Right History reviewed. No pertinent family history. [...] on phone: None Gets together: None Attends adventist service: None Active member of club or organization: None Attends meetings of clubs or organizations: None Relationship status: None Intimate partner violence: Fear of current or ex partner: None Emotionally abused: None Physically abused: None Forced sexual activity: None Other Topics Concern None Social History Narrative None Subjective/HPI: called by bar staff regarding tachycardia. Pt was unaware of tachycardia. [...] receiving Lactulose. Medicated with Percoet x2. * Tehrese Mai RN - 11/18/2018 1:52 AM EDT [...] woman from homewith spouse who presents to [facility] with the above deficits which [...] up labs. Blanca Holguin D.O., PM&R Attending [phone] [place] [address] [place] * Dana Craig, JANET - 11/17/2018 5:45 PM EDT Monitor room called, said pt had about 18 sec run of svt up to 218; notified cardio. * Faye Summers PTA - 11/17/2018 4:07 PM EDT Physical Therapy Rehab Treatment Note Facility/Department: [facility] NAME: Hiram Madrid : 1935 [...] 11/17/2018 2:51 PM EDT Occupational Therapy Facility/Department: [facility] Daily Treatment Note NAME: Hiram Madrid [...] EDT Physical Therapy Rehab Treatment Note Facility/Department: [facility] Room: R238/R238-01 NAME: Hiram Madrid : [...] EDT Physical Therapy Rehab Treatment Note Facility/Department: [facility] NAME: Hiram Madrid : 1935 [...] 11/17/2018 8:43 AM EDT Occupational Therapy Facility/Department: [facility] Daily Treatment Note NAME: Hiram Madrid [...] at below status. 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 Grooming: Independent UE Bathing: Setup LE Bathing: [...] woman from homewith spouse who presents to [facility] with the above deficits which [...] consult,check dopplers Blanca Holguin D.O., PM&R Attending [phone] [facility] [place] * Jessica Irvin, OTR/L - 11/16/2018 4:14 PM EDT Occupational Therapy Facility/Department: [facility] Daily Treatment Note NAME: Hiram Madrid : 1935 Date of Service: 11/16/2018 Discharge Recommendations: Continue to assess pending progress OT Equipment Recommendations Other: Continue to assess Assessment Performance deficits / Impairments: Decreased functional mobility ;Decreased ADL status;Decreased strength;Decreased balance;Decreased endurance;Decreased high- level IADLs Assessment: Pt. is an 83 year old woman from home with spouse who presents to [facility] with the above deficits which [...] Pain: Yes Objective The patient completed the [facility] Mental Status (UMS) Examination on this [...] Unit/Bed: R238/R238-01 Date of : 1935 Acct: [id number] Admitting Diagnosis: Impaired mobility [Z74.09] Spinal stenosis of lumbosacral region [M48.07] Admit Date: 11/15/2018 Hospital Day: 1 Current Medications: Scheduled Meds: [START ON 11/17/2018] enoxaparin 40 mg Subcutaneous Daily dmtfxyms-nsvulcbaaz-hlwthoyep Topical BID docusate sodium 100 mg Oral [...] to have + orthostatics. Denies hx of [place], CHF or arrhythmia. Follows with a flatwork presser from [place] for carotid artery disease and cardiac murmur. [...] L4 performed by Lenny Corral MD at [facility] Right Social History Social [...] on phone: None Gets together: None Attends adventist service: None Active member of club or [...] mg 100 mg Oral Daily Shyla Vizcaino, GAS PLANT TECHNICIAN - SANFORIZING MACHINE OPERATOR oxyCODONE-acetaminophen (PERCOCET) 5-325 MG per tablet 1 tablet 1 tablet Oral Q4H PRN Shylapresley Vizcaino, GAS PLANT TECHNICIAN - SANFORIZING MACHINE OPERATOR potassium chloride (KLOR-CON) packet 20 mEq 20 mEq Oral BID Shyla Renato Vizcaino, GAS PLANT TECHNICIAN - SANFORIZING MACHINE OPERATOR pravastatin (PRAVACHOL) tablet 80 mg 80 mg Oral Daily Shyla Renato Vizcaino, GAS PLANT TECHNICIAN - SANFORIZING MACHINE OPERATOR polyethylene glycol (GLYCOLAX) packet 17 g [...] EDT Physical Therapy Rehab Treatment Note Facility/Department: [facility] Room: [facility] NAME: Hiram Madrid : 1935 (83 y.o.) [...] education: 0 Therapeutic ex: 23 Mikayla Lindsey NUTRITIONAL SERVICES COOK, 11/16/18 at 3:57 PM * Rhiannon Blank [...] from home with spouse who presents to [facility] with the above deficits which [...] to increasing pain) Transfer Assistance: Independent Active Natural Resources Professor: Yes Mode of Transportation: Car Type of [...] OTR/L Jessica Irvin OTR/Lloyd * Jena Vega, NUTRITIONAL SERVICES COOK - 11/16/2018 10:35 AM EDT Physical Therapy Rehab Treatment Note Facility/Department: [facility] Room: [place] [address] NAME: Hiram Madrid : 1935 (83 y.o.) [...] 11/16/18 at 11:10 AM * Jessenia Gordon, STOCK CLIPPER - 11/16/2018 9:35 AM EDT [facility] Rehabilitation RECREATIONAL THERAPY Initial Evaluation Date: [...] hearing in left ear) Patient seen at: [phone] Recreation Therapist received referral, chart reviewed and [...] her flower bed. Past leisure interests: Walking, presybeterian, had pets Future leisure interests: Emotional Observed/noted: [...] signed by: MARIEL Stover Date: 11/16/2018 * Lkaisha Trevino, PT - 11/16/2018 8:20 AM EDT Facility/Department: [facility] Rehabilitation Initial Assessment: Physical [facility] NAME: Hiram Madrid : 1935 [...] L4 performed by Lenny Corral MD at [facility] Right Chart Reviewed: Yes Patient assessed for [...] to increasing pain) Transfer Assistance: Independent Active Natural Resources Professor: Yes Additional Comments: 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 - 11/15/2018 11:29 PM EDT Tashia [...] puffs by inhalation with spacer [] Ipratropium [place] 0.02% unit dose by aerosol Ipratropium [place] MDI 2 puffs by inhalation with spacer [] Duoneb (Ipratropium + Albuterol) unit dose by aerosol Ipratropium MDI + Albuterol MDI 2 puffs byinhalation w/spacer MDI to Aerosol [] Albuterol Sulfate MDI Albuterol Sulfate 0.083% unit dose by aerosol [] Levalbuterol MDI 2 puffs by inhalation Levalbuterol 1.25 mg unit dose by aerosol [] Ipratropium [place] MDI by inhalation Ipratropium [place] 0.02% unit dose by aerosol [] Combivent (Ipratropium + Albuterol) MDI by inhalation Duoneb (Ipratropium + Albuterol) unit doseby aerosol Treatment Assessment [Frequency/Schedule]: Change frequency to: ACCUNEB Q4 PRN per Protocol, P&T, [facility] Points 0 1 2 3 [...] of lumbosacral region Impaired mobility Vasovagal syncope [facility] [address] [place] [address] Chief Complaint and Reason for Visit Chief Complaint SYNCOPE Additional Source Comments INFORMATION SOURCE (unrecogn ized section and content) DATE CREATED AUTHOR 04/20/2018 [facility] DATE CREATED AUTHOR AUTHOR'S ORGANIZ ATION 11/24/2018 [facility] DATE CREATED AUTHOR AUTHOR'S ORGANIZ ATION 06/14/2022 [facility] DATE CREATED AUTHOR AUTHOR'S ORGANIZ ATION 08/21/2022 [facility] DATE CREATED AUTHOR AUTHOR'S ORGANIZ ATION 12/23/2022 [facility] DATE CREATED AUTHOR AUTHOR'S ORGANIZ ATION 01/13/2023 [facility] Reason for Visit (unrecogniz ed section and content) Reason Comments Back Pain Left low back pain r adiates down left leg. Pain flared up last monday Status Reason Specialty Diagnoses / Procedures Referre d By Contact Referred To Contact Diagnoses Intractable back pain Lenny Corral MD [address], [address] [place] [address] [facility] Patient Care team informatio n (unrecognized [...] ON THE PRIMARY CLINICAL RECORDS. [facility]. provides no warranty or guarantee of the accuracy or completeness of information in this document.
[2023-03-03 10:13] LABS: Basophils Absolute Auto 0.1 10^3/uL (0.0-0.1); Basophils Percent Auto 0.6 % (0.2-2.0); Eosinophils Absolute Auto 0.3 10^3/uL (0.0-0.7); Eosinophils Percent Auto 2.9 % (0.9-7.0); Hematocrit 35.2 % (36.0-48.0); Immature Granulocytes Abs Auto 0.07 10^3/uL (0.00-0.03); Immature Granulocytes Pct Auto 0.6 % (0.0-0.5); Lymphocytes Absolute Auto 1.8 10^3/uL (1.2-3.8); Lymphocytes Percent Auto 17.1 % (20.5-60.0); Mean Corpuscular HGB Conc 34.1 g/dL (29.9-35.2); Mean Corpuscular Hemoglobin 31.5 pg (26.7-34.0); Mean Corpuscular Volume 92.4 fL (81.0-99.0); Mean Platelet Volume 8.2 fL (9.5-13.5); Monocytes Absolute Auto 0.9 10^3/uL (0.3-0.8); Monocytes Percent Auto 7.9 % (1.7-12.0); Neutrophils Absolute Auto 7.6 10^3/uL (1.4-6.5); Neutrophils Percent Auto 70.9 % (43.0-75.0); Platelet Count 361 10^3/uL (150-450); Red Blood Count 3.81 10^6/uL (4.20-5.40); White Blood Count 10.8 10^3/uL (4.0-11.0)
[2023-03-03 11:30] LABS: Alanine Aminotransferase 22 U/L (14-59); Albumin Globulin Ratio 0.9; Albumin Level 3.3 g/dL (3.4-5.0); Alkaline Phosphatase 56 U/L (46-116); Anion Gap 12.3; Aspartate Amino Transferase 13 U/L (15-37); BUN Creatinine Ratio 9.7; Bilirubin Total 0.5 mg/dL (0.2-1.0); Calcium 8.9 mg/dL (8.5-10.1); Carbon Dioxide 27.7 mmol/L (21.0-32.0); Chloride 94 mmol/L (98-107); Estimated GFR (African America >60 (>=60); Estimated GFR (Non-African Ame >60 (>=60); Globulin 3.7 g/dL; Glucose 115 mg/dL (74-106); Sodium 130 mmol/L (136-145)
[2023-03-17 10:29] LABS: Alanine Aminotransferase 22 U/L (14-59); Albumin Globulin Ratio 0.9; Albumin Level 3.4 g/dL (3.4-5.0); Alkaline Phosphatase 52 U/L (46-116); Anion Gap 10.7; Aspartate Amino Transferase 15 U/L (15-37); BUN Creatinine Ratio 19.1; Bilirubin Total 0.6 mg/dL (0.2-1.0); Calcium 8.9 mg/dL (8.5-10.1); Carbon Dioxide 28.9 mmol/L (21.0-32.0); Chloride 95 mmol/L (98-107); Estimated GFR (African America >60 (>=60); Estimated GFR (Non-African Ame >60 (>=60); Globulin 3.6 g/dL; Glucose 101 mg/dL (74-106); Potassium 3.6 mmol/L (3.5-5.1); Sodium 131 mmol/L (136-145)
[2023-03-17 10:33] LABS: Basophils Absolute Auto 0.1 10^3/uL (0.0-0.1); Basophils Percent Auto 0.5 % (0.2-2.0); Eosinophils Absolute Auto 0.1 10^3/uL (0.0-0.7); Eosinophils Percent Auto 0.9 % (0.9-7.0); Hematocrit 35.5 % (36.0-48.0); Hemoglobin 12.2 g/dL (12.0-16.0); Immature Granulocytes Abs Auto 0.05 10^3/uL (0.00-0.03); Immature Granulocytes Pct Auto 0.5 % (0.0-0.5); Lymphocytes Absolute Auto 1.9 10^3/uL (1.2-3.8); Lymphocytes Percent Auto 19.8 % (20.5-60.0); Mean Corpuscular HGB Conc 34.4 g/dL (29.9-35.2); Mean Corpuscular Hemoglobin 33.3 pg (26.7-34.0); Mean Platelet Volume 8.5 fL (9.5-13.5); Monocytes Absolute Auto 0.9 10^3/uL (0.3-0.8); Monocytes Percent Auto 8.9 % (1.7-12.0); Neutrophils Absolute Auto 6.8 10^3/uL (1.4-6.5); Neutrophils Percent Auto 69.4 % (43.0-75.0); Platelet Count 359 10^3/uL (150-450); Red Blood Count 3.66 10^6/uL (4.20-5.40); Red Cell Distribution Width 13.8 % (11.0-15.0); White Blood Count 9.8 10^3/uL (4.0-11.0)
== END 2023-03-22 17:25 | disposition home or self-care (01) ==
LOC: LAB 09:51
PROVIDERS: PCP Family Medicine; Visit Provider Family Medicine
DX: E83.42 Hypomagnesemia (principal); E87.1 Hypo-osmolality and hyponatremia; R53.83 Other fatigue
CPT/HCPCS: 36415; 80053; 85025

== ENCOUNTER 2023-03-28 05:43 | Observation (INO) | payer MEDICARE, OTHER, SELFPAY ==
[2023-03-28] VITALS (32 sets, daily range): BP systolic 101–187; BP diastolic 50–91; PULSE 37–89; RESP 16–24; TEMP 36.1–36.8; O2SAT 90–99; BMI 27.2; BMI 25.9
--- OUTSIDE RECORDS SUMMARY | 2023-03-28 06:00 | XMS_ITS | CCD ---
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 Name Role Phone PHYSICIAN, DEFAULT Admitting Unavailable [...] Care Provider CALISTA ACEVES Primary Care Physician DR VALERIE DARDEN Consulting Unavailable JEREMIAH .DR [...] CALISTA Pereira Consulting Unavailable ACEVES, DR CALISTA Pereiar Primary Care Unavailable ACEVES, DR CALISTA Pereira [...] Unavailable MD Addy Daniels Primary Care Provider [phone] DO Camacho Ladd Emergency Provider Unamoab [...] Allergy 8 Hives, Eruption of skin (disorder) [place], [place] (2 sources) predniSONE Drug Allergy 7 [facility] (1 source) predniSONE Drug Allergy 3 [facility] (3 sources) atorvastatin; Translations: [atorvastatin] Drug Allergy 3 Unknown (qualifier value) [facility] (2 sources) Ibuprofen; Translations: [ibuprofen] Drug Allergy Unknown (qualifier value) [facility] Natalya Medications Current Medications Medication Drug [...] Antibacterial, Polymyxin-class Antibacterial Start: 11-16-2018 End: 11-18-2018 konvphnd-naqqbfpqhw-abwknjrb n (NEOSPORIN) ointment carvedilol (1 source) alpha-Adrenergic [...] 5 August 05, 2022 polyethylene glycol 3350 35901 mg powder for oral solution (1 source) Osmotic Laxative Start: 11-15-2018 polyethylene glycol (GLYCOLAX) packet 17 g Potassium Chloride (7 sources) Start: 08-10-2022 Potassium Chlo ride (Stg-Ocwh-Mlz 10) mEq, Oral, BID Start Date: 08/10/22 Status: Ordered Start: 11-05-2018 End: 11-05-2018 potassium chloride (KLOR-CON M) extended release tablet 40 mEq Start: 11-04-2018 20 mEq, Oral, 2 TIMES DAILY, First dose on Aura 11/15/18 at 2100 Dilute with at least 4 ounces of cold water. May further dilute if GI adverse effects occur. 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; Translations: [RESIDENTIAL CURRENT USE OF ASPIRIN] Onset: 12-31-2021 Episodic 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 source) Other residential (current) drug therapy; Translations: [OTH RESIDENTIAL CURRENT DRUG THERAPY] Onset: 12-31-2021 Episodic Residual [...] Range Facility Office Visiton 01-11-2023 Follow-up visit [id number] Hiram Madrid 1935 F Date Provider Department Center 01/11/2023 LESLY GASPAR CARD [facility] Family History Problem Relation Age of Onset Hypertension Mother Lupus Mother Coronary artery disease Mother Heart attack Mother Hypertension Father Aneurysm Father Coronary artery disease Father Hypertension Sister Lupus Sister Family Status - Relation Status Age at Mother Father Sister Level of Service:13088 [place] OFFICE/OUTPATIENT ESTABLISHED MOD MDM 30-39 MIN Normal [facility] Lab Reportson 12-23-2022 Lab Reports [id number] 0TIFF Normal [facility] Urology Office/Clinic Noteon 12-23-2022 Urology Office/Clinic Note [...] Pt presented to ER due to syncope. [place] was found incidentally on CT. CT AP [...] Contact Information ABDULLAHI NOONAN, MIKAYLA Pereira, URL [address] [place] [address] [phone] Additional Instructions: 6 mos w/ renal fxn [...] Tab losartan 100 mg Tab Potassium Chloride (Hzs-Zxck-Ydt 10), Oral, BID pravastatin 80 mg Tab [...] virus vaccine, (more content not included)... Normal [facility] Comment on above: Result Comment: Elec tronically Signed By: MIKAYLA WEISS PA-C\.br\Date and Time Signed: 12/23/22 12:13 EDT\.br\Electronically Co-Signed By: Jacquie Gan\.br\Date and Time Co-Signed: 12/22/22 12:27 EDT Ambulatory Visit Summaryon 1 02-21-2022 Ambulatory Visit Summary HIRAM MADRID :1935 Visit Date:12/22/2022 Ambulatory Visit Instructions Your Diagnosis Hydronephrosis, right Ureteral stenosis Tests Performed Urnls Dip Stick Auto w/o Microscopy POC 36688 US Renal -- Results Pending -- Please [...] 100 mg Tab) potassium chloride (Potassium Chloride (Dqb-Wdek-Jhs 10)) pravastatin (pravastatin 80 mg Tab) Procedures Performed Appendectomy, Bilateral salpingo-oophorectomy, Cataract extraction and insertion of intraocular lens, Cholecystectomy, Colonoscopy, Procedure on back, Tonsillectomy. Discharge Vitals Blood Pressure 124/84 Height 155 cm Height 61 in Weight 64.8 kg Weight 142.56 lb BMI 26.97 What to do next Scheduled Follow-Up Appointments June. 2023 9:30 AM EDT With: MIKAYLA WEISS PA-C Where: [facility] Natalya Anders [facility] Patient Educationon 12-23-19 Patient Education Urology Hydronephrosis [...] Follow these instructions at home: ? Take wtan-frt-axaofxk and prescription medicines only as told by [...] provider. Document Revised: 05/26/2020 Document Reviewed: 05/26/2020 [employer] Patient Education ? 2022 achvr. Normal [facility] RAD - Ultrasound Reporton RAD - Ultrasound Report [id number] 0TIFF [facility] Reminderson 12-22-2022 Reminders - From: Jacquie Gan To: ERIN Weiss; Sent: 12/22/2022 12:30:05 EDT Show up: 05/23/2023 12:30:00 EDT Subject: JAC and BUN/Creatinine prior to appt Reminder Message Please Remember to:_have pt schedule JAC prior to appt. Please look for BUN/Cr labs from PCP. If unable to locate recent labs, send pt order to complete this. Normal [facility] Orders Onlyon 10-25-2022 Orders Only [id number] Hiram Madrid 1935 F Date Provider Department Center 10/25/2022 [facility] Family History Problem Relation Age of Onset Hypertension Mother Lupus Mother Coronary artery disease Mother Heart attack Mother Hypertension Father Aneurysm Father Coronary artery disease Father Hypertension Sister Lupus Sister Family Status - Relation Status Age at Mother Father Sister Normal [facility] 37on 10-14-2022 37 Increase coreg/carvedilol to 25 mg twice a day- you have 12.5 mg tabs now so take 2 twice a day until this bottle is gone- your next refill will be the higher dose of 25 mg bid. Have labs drawn [facility] Office Visiton 10-14-2022 Follow-up visit [id number] Hiram Madrid 1935 Date Provider Department Center 10/14/2022 LESLY GASPAR SONIA [facility] Family History Problem Relation Age of Onset Hypertension Mother Lupus Mother Coronary artery disease Mother Heart attack Mother Hypertension Father Aneurysm Father Coronary artery disease Father Hypertension Sister Lupus Sister Family Status - Relation Status Age at Mother Father Sister Level of Service:73745 [place] OFFICE/OUTPATIENT ESTABLISHED MOD MDM 30-39 MIN [facility] Consent for Procedure/Surger yon 09-07-2022 Consent for Procedure/Surgery [id number]. 00CD:127 [facility] Ambulatory Visit Summaryon 0 09-06-2022 Ambulatory [...] 100 mg Tab) potassium chloride (Potassium Chloride (Gtv-Zbsb-Xsx 10)) pravastatin (pravastatin 80 mg Tab) Procedures [...] Follow these instructions at home: ? Take tvlr-ubj-pzjjcen and prescription medicines only as told by [...] provider. Document Revised: 05/26/2020 Document Reviewed: 05/26/2020 [employer] Patient Education ? 2022 [employer] Normal [facility] Office/Clinic Noteon 09-06-2022 Urology Office/Clinic Note [...] [facility] [address], [place] [address]- Additional Instructions: 3 mos no labs Patient [...] Tab losartan 100 mg Tab Potassium Chloride (Oqu-Syxc-Doq 10), Oral, BID pravastatin 80 mg Tab [...] inactivated 12/06/2016 Rec (more content not included)... [facility] Comment on above: Result Comment: Elec tronically Signed By: Raymond HARRISON MD\.br\Date and Time Signed: 09/06/22 13:02 EDT\.br\Electronically Co-Signed By: Josefa Stewart\.br\Date and Time Co-Signed: 09/06/22 13:01 EDT Operative Reporton Operative Report [id number] CD:127 [facility] RAD - MISCon 08-12-2022 RAD - MISC [id number] CD:127 [facility] Ambulatory Visit Summaryon 0 08-10-2022 Ambulatory Visit Summary HIRAM MADRID :1935 Visit Date:08/10/2022 Ambulatory Visit Instructions Your Diagnosis Hydronephrosis, right Aspirin long-term use Tests Performed Urnls Dip Stick Auto w/o Microscopy POC 80829 Your Care Team Attending Physician - Raymond HARRISON MD Primary Care Physician - Addy Daniels MD This Is Your Medications List Contact prescribing physician if questions or concerns amlodipine (amLODIPine 10 mg Tab) aspirin (aspirin 81 mg oral capsule) carvedilol hydrochlorothiazide levothyroxine (levothyroxine 88 mcg (0.088 mg) Tab) losartan (losartan 100 mg Tab) potassium chloride (Potassium Chloride (Mum-Npbm-Txq 10)) pravastatin (pravastatin 80 mg Tab) Procedures [...] When: Where: [facility] [address] [place] [address]- Medications What How Much When Instructions Unchanged [...] or concerns Unchanged potassium chloride (Potassium Chloride (Chv-Senm-Ifv 10)) 2 times a day Contact prescribing physician if questions or concerns Unchanged pravastatin (pravastatin 80 mg Tab) 30 EA, TAKE 1 TABLET BY MOUTH ONCE DAILY Contact prescribing physician if questions or concerns Test Results Urnls Dip Stick Auto w/o Microscopy POC 72660 (08/10/2022) Bilirubin Urine Dipstick - Negative Blood Urine Dipstick - Negative Glucose Urine Dipstick - Negative Ketones Urine Dipstick - Negative Leukocytes Urine Dipstick - Trace Nitrite Urine Dipstick - Negative Protein Urine Dipstick - Negative Specific [place] Urine Dipstick - 1.025 Urine Appearance Urine [...] what caus (more content not included)... Normal [facility] Ambulatory Visit Summary HIRAM MADRID :1935 Visit Date:08/10/2022 Ambulatory Visit Instructions Your Diagnosis Hydronephrosis, right Aspirin long-term use Tests Performed Urnls Dip Stick Auto w/o Microscopy POC 65577 Your Care Team Attending Physician - CRHISTY DUMONT, Raymond Mckeon Primary Care Physician - Addy Daniels MD This Is Your Medications List Contact prescribing physician if questions or concerns amlodipine (amLODIPine 10 mg Tab) aspirin (aspirin 81 mg oral capsule) carvedilol hydrochlorothiazide levothyroxine (levothyroxine 88 mcg (0.088 mg) Tab) losartan (losartan 100 mg Tab) potassium chloride (Potassium Chloride (Efs-Cchy-Fbt 10)) pravastatin (pravastatin 80 mg Tab) Procedures [...] Where: [facility] [address] [place] [address]- Medications What How Much When Instructions Unchanged [...] or concerns Unchanged potassium chloride (Potassium Chloride (Znb-Ypot-Kuy 10)) 2 times a day Contact prescribing physician if questions or concerns Unchanged pravastatin (pravastatin 80 mg Tab) 30 EA, TAKE 1 TABLET BY MOUTH ONCE DAILY Contact prescribing physician if questions or concerns Test Results Urnls Dip Stick Auto w/o Microscopy POC 30588 (08/10/2022) Bilirubin Urine Dipstick - Negative Blood Urine Dipstick - Negative Glucose Urine Dipstick - Negative Ketones Urine Dipstick - Negative Leukocytes Urine Dipstick - Trace Nitrite Urine Dipstick - Negative Protein Urine Dipstick - Negative Specific [place] Urine Dipstick - 1.025 Urine Appearance Urine [...] what caus (more content not included)... Normal [facility] Consent for Procedure/Surger yon 08-10-2022 Consent for Procedure/Surgery [id number] CD:127 [facility] Formson 08-10-2022 Forms [id number] CD:127 [facility] Patient Educationon 08-11-19 Patient Education Urology [...] Follow these instructions at home: ? Take vdwp-uhy-msftucc and prescription medicines only as told by [...] provider. Document Revised: 05/26/2020 Document Reviewed: 05/26/2020 [employer] Patient Education ? 2022 achvr. [employer] [facility] Office/Clinic Noteon 08-10-2022 Urology Office/Clinic Note Chief Complaint Kidney stones HPI Staff New Pt follow up to [facility] on 08/05/[address] [...] yo female new pt following up to [facility] ER visit on 08/05/22 due to nausea, [...] 2. 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 Follow-up With When Contact Information Raymond HARRISON MD, URL [facility] [address], [place] [address]- Additional Instructions: schedule R URS, possible laser [...] No qualifyin (more content not included)... Normal [facility] Comment on above: Result Comment: Elec tronically Signed By: Raymond HARRISON MD\.br\Date and Time Signed: 08/10/22 09:39 EDT\.br\Electronically Co-Signed By: Josefa Stewart\.br\Date and Time Co-Signed: 08/10/22 09:38 EDT XR KUB[facility] 08-09-2022 XR [facility] [address] [address] XRay Report Signed Patient: Hiram Madrid MR#: [id number] : 1935 Acct:[id number] Age/Sex: 86 / F ADM Date: 08/09/22 Loc: [facility]D [facility]: [facility]: Raymond Harrison MD Copies [...] Lopez Jr., D.OYou08/09/2022 3:58 PM Dictation Location: [place] [address] Transcribed By: [facility] 08/09/22 1558 Dictated By: Kameron Lopez Jr, DO 08/09/22 1555 Signed By: 08/09/22 1558 Normal [facility] CT abdomen pelvis wo conon 0 08-06-2022 CT abdomen pelvis wo con [place] [id number] CT Scan Report Signed Patient: Hiram Madrid MR#: [id number] : 1935 Acct:[id number] Age/Sex: 86 / F ADM Date: 08/05/22 Loc: ER Room: Type: [facility] ER Attending Dr: Copies to: Camacho [...] Faye Wyman M.D.08/06/2022 8:43 AM Dictation Location: [place] [address] Transcribed By: [facility] 08/06/22 0843 Dictated By: Faye Wyman MD 08/06/22 0830 Signed By: 08/06/22 0843 Normal [facility] Alanine aminotransferase [En zymatic activity/volume] in Serum or PlasmaOrdered By: Camacho Ladd on 08-05-2022 ALT [Catalytic activity/Vol] 16 U/L 7-52 [facility] Albumin [Mass/volume] in Ser um or Plasma by Bromocresol green (BCG) dye binding methoOrdered By: Camacho Ladd on 08-05-2022 Albumin BCG dye [Mass/Vol] 4.4 g/dL 3.5-5.7 [facility] Alkaline phosphatase [Enzyma tic activity/volume] in Serum or PlasmaOrdered By: Camacho Ladd on 08-05-2022 ALP [Catalytic activity/Vol] 61 U/L 34-104 [facility] Aspartate aminotransferase [ Enzymatic activity/volume] in Serum or PlasmaOrdered By: Camacho Ladd on 08-05-2022 AST [Catalytic activity/Vol] 21 U/L 13-39 [facility] Automated erythrocytes count in urine sediment (number/area)Ordered By: Camacho Ladd on 08-05-2022 RBC Auto (Urine sed) [#/Area] 0-1 [HPF] 0-4 [facility] Automated leukocytes count i n urine sediment (number/area)Ordered By: Camacho Ladd on 08-05-2022 WBC Auto (Urine sed) [#/Area] 1-2 [HPF] 0-4 [facility] Basic Metabolic Panelon 07-21 Anion gap [Moles/Vol] 17.8 mmol/L High 6.0-15.0 [facility] Comment on above: Performed By: #### H S TROP, HEPATIC, LIPASE, CBC, BMP #### [facility] [address] Calcium [Mass/Vol] 9.7 mg/dL Normal 8.6-10.3 [facility] Comment on above: Performed By: #### H S TROP, HEPATIC, LIPASE, CBC, BMP #### [facility] [address] [place] [address] [place] Chloride [Moles/Vol] 87 mmol/L Low 98-[address] [facility] Comment on above: Performed By: #### H S TROP, HEPATIC, LIPASE, CBC, BMP #### [facility] [address] [place] [address] [place] CO2 [Moles/Vol] 23.2 mmol/L Normal 21.0-31.0 [facility] Comment on above: Performed By: #### H S TROP, HEPATIC, LIPASE, CBC, BMP #### [facility] [address] Creatinine [Mass/Vol] 1.03 mg/dL Normal 0.60-1.20 [facility] Comment on above: Performed By: #### H S TROP, HEPATIC, LIPASE, CBC, BMP #### [facility] [address] Creatinine Clr Calc Pharmacy 35.13 [facility] Comment on above: Performed By: #### H S TROP, HEPATIC, LIPASE, CBC, BMP #### [place] [address] [place] GFR/1.73 sq M.predicted MDRD (S/P/Bld) [Vol rate/Area] 53.284 mL/min/{1.73_m2} [facility] Comment on above: Performed By: #### H S TROP, HEPATIC, LIPASE, CBC, BMP #### [address] Glucose [Mass/Vol] 156 mg/dL High 70-100 [facility] Comment on above: Result Comment: [facility] Glucose Reference Range is dependent on time and content of last meal. Glucose of more than 200 mg/dL in a nonstressed, ambulatory subject supports the diagnosis of Diabetes Mellitus. ADA recommended reference range Performed By: #### H S TROP, HEPATIC, LIPASE, CBC, BMP #### [address] Potassium [Moles/Vol] 3.0 mmol/L Low 3.5-5.1 [facility] Comment on above: Performed By: #### H S TROP, HEPATIC, LIPASE, CBC, BMP #### [place] [address] [place] Sodium [Moles/Vol] 125 mmol/L Low 136-145 [facility] Comment on above: Performed By: #### H S TROP, HEPATIC, LIPASE, CBC, BMP #### [place] [address] [place] Urea nitrogen [Mass/Vol] 12 mg/dL Normal 7-25 [facility] Comment on above: Performed By: #### H S TROP, HEPATIC, LIPASE, CBC, BMP #### [facility] [address] Basophils Auto (Bld) [#/Vol] Ordered By: Camacho Ladd on 08-05-2022 Basophils (Bld) [#/Vol] 0.1 10*3/uL 0.0-0.2 [facility] Basophils/100 WBC Auto (Bld) Ordered By: Camacho Ladd on 08-05-2022 Basophils/100 WBC (Bld) 0.4 % . [facility] Bilirubin Test strip Ql (U)O rdered By: Camacho Ladd on 08-05-2022 Bilirubin Ql (U) Negative Negative [facility] Bilirubin.direct [Mass/volum e] in Serum or PlasmaOrdered By: Camacho Ladd on 08-05-2022 Bilirubin.direct [Mass/Vol] 0.10 mg/dL 0.03-0.18 [facility] Bilirubin.total [Mass/volume ] in Serum or PlasmaOrdered By: Camacho Ladd on 08-05-2022 Bilirubin [Mass/Vol] 0.7 mg/dL 0.3-1.[address] [facility] Calcium [Mass/volume] in Ser um or PlasmaOrdered By: Camacho Ladd on 08-05-2022 Calcium [Mass/Vol] 9.7 mg/dL 8.6-10.3 [facility] Carbon dioxide, total [Moles /volume] in Serum or PlasmaOrdered By: Camacho Ladd on 08-05-2022 CO2 [Moles/Vol] 23.2 mmol/L 21.0-31.0 [facility] Chloride [Moles/volume] in S willa or PlasmaOrdered By: Camacho Ladd on 08-05-2022 Chloride [Moles/Vol] 87 mmol/L 98-[address] [facility] Color Auto (U)Ordered By: Ender Ladd on 08-05-2022 Color (U) Yellow Yellow [facility] Complete Blood Count Auto Di ffon 08-05-2022 Basophils (Bld) [#/Vol] 0.1 10*3/uL Normal 0.0-0.2 [facility] Comment on above: Result Comment: PERF ORMED BY: [place] [address] PATHOLOGIST CATTLE EXAMINER GOSIA MCADAMS M.D. Performed By: #### H S TROP, HEPATIC, LIPASE, CBC, BMP #### [address] Basophils/100 WBC (Bld) 0.4 % Normal . [facility] Comment on above: Performed By: #### H S TROP, HEPATIC, LIPASE, CBC, BMP #### [address] Eosinophils (Bld) [#/Vol] 0.1 10*3/uL Normal 0.0-0.45 [facility] Comment on above: Performed By: #### H S TROP, HEPATIC, LIPASE, CBC, BMP #### [address] Eosinophils/100 WBC (Bld) 0.6 % Normal . [facility] Comment on above: Performed By: #### H S TROP, HEPATIC, LIPASE, CBC, BMP #### [address] Erythrocyte distribution width (RBC) [Ratio] 13.6 % Normal 11.9-15.3 [facility] Comment on above: Performed By: #### H S TROP, HEPATIC, LIPASE, CBC, BMP #### [address] Hematocrit (Bld) [Volume fraction] 37.3 % Normal 34.0-46.4 [facility] Comment on above: Performed By: #### H S TROP, HEPATIC, LIPASE, CBC, BMP #### [address] Hemoglobin (Bld) [Mass/Vol] 13.0 g/dL Normal 11.8-15.4 [facility] Comment on above: Performed By: #### H S TROP, HEPATIC, LIPASE, CBC, BMP #### [place] [id number] [place] Lymphocytes (Bld) [#/Vol] 3.1 10*3/uL Normal 1.00-4.8 [facility] Comment on above: Performed By: #### H S TROP, HEPATIC, LIPASE, CBC, BMP #### [facility] [address] [place] [address] Lymphocytes/100 WBC (Bld) 21.9 % Normal . [facility] Comment on above: Performed By: #### H S TROP, HEPATIC, LIPASE, CBC, BMP #### [address] MCH (RBC) [Entitic mass] 31.6 pg Normal 24.7-34.3 [facility] Comment on above: Performed By: #### H S TROP, HEPATIC, LIPASE, CBC, BMP #### [address] MCV (RBC) [Entitic vol] 90.4 fL Normal 80-100 [facility] Comment on above: Performed By: #### H S TROP, HEPATIC, LIPASE, CBC, BMP #### [address] Mean Corpuscular HGB Conc 35.0 g/dL Normal 32.0-35.0 [facility] Comment on above: Performed By: #### H S TROP, HEPATIC, LIPASE, CBC, BMP #### [address] Monocytes (Bld) [#/Vol] 1.4 10*3/uL High 0.0-0.8 [facility] Comment on above: Performed By: #### H S TROP, HEPATIC, LIPASE, CBC, BMP #### [address] Monocytes/100 WBC (Bld) 20.58 % High 0.00-20.00 [facility] Comment on above: Result Comment: For adults in ED, MDW > 20.0 may be associated with a higher risk of sepsis during the first 12 hrs of hospital admission Performed By: #### H S TROP, HEPATIC, LIPASE, CBC, BMP #### [address] Monocytes/100 WBC (Bld) 9.6 % Normal . [facility] Comment on above: Performed By: #### H S TROP, HEPATIC, LIPASE, CBC, BMP #### [address] Neutrophils (Bld) [#/Vol] 9.6 10*3/uL High 1.8-7.7 [facility] Comment on above: Performed By: #### H S TROP, HEPATIC, LIPASE, CBC, BMP #### [address] Neutrophils/100 WBC (Bld) 67.5 % Normal . [facility] Comment on above: Performed By: #### H S TROP, HEPATIC, LIPASE, CBC, BMP #### [address] NRBC% 0.1 /100{WBC} Normal 0-0.5 [facility] Comment on above: Performed By: #### H S TROP, HEPATIC, LIPASE, CBC, BMP #### [address] Platelet mean volume (Bld) [Entitic vol] 7.2 fL Normal 6.3-10.7 [facility] Comment on above: Performed By: #### H S TROP, HEPATIC, LIPASE, CBC, BMP #### [place] [address] [place] Platelets (Bld) [#/Vol] 500 10*3/uL High 150-450 [facility] Comment on above: Performed By: #### H S TROP, HEPATIC, LIPASE, CBC, BMP #### [address] RBC (Bld) [#/Vol] 4.13 10*6/uL Normal 3.60-5.00 [facility] Comment on above: Performed By: #### H S TROP, HEPATIC, LIPASE, CBC, BMP #### [place] [address] [place] WBC (Bld) [#/Vol] 14.2 10*3/uL High 3.8-11.6 [facility] Comment on above: Performed By: #### H S TROP, HEPATIC, LIPASE, CBC, BMP #### [facility] [address] [place] [id number] [place] Creatinine [Mass/volume] in Serum or PlasmaOrdered By: Camacho Ladd on 08-05-2022 Creatinine [Mass/Vol] 1.03 mg/dL 0.60-1.20 [facility] Dipstick and Microscopicon 0 08-05-2022 Appearance (U) Cloudy Critically abnormal Clear [facility] Comment on above: Order Comment: Name Collection Type:: Clean-Voided Midstream Performed By: #### A DDONUAPLUS #### [facility] [address] Bacteria,Urine None Seen Normal None Seen [facility] Comment on above: Order Comment: Name Collection Type:: Clean-Voided Midstream Performed By: #### A DDONUAPLUS #### [facility] [address] [place] [address] [place] Bilirubin,Urine Negative Normal Negative [facility] Comment on above: Order Comment: Name Collection Type:: Clean-Voided Midstream Performed By: #### A DDONUAPLUS #### [facility] [facility] [address] [id number] [place] Color (U) Yellow Normal Yellow [facility] Comment on above: Order Comment: Name Collection Type:: Clean-Voided Midstream Performed By: #### A DDONUAPLUS #### [facility] [address] [id number] [place] Glucose Ql (U) Normal Normal Normal [facility] Comment on above: Order Comment: Name Collection Type:: Clean-Voided Midstream Performed By: #### A DDONUAPLUS #### [facility] [address] [id number] [place] Hyaline Casts,Urine None Seen Normal 0-8 [facility] Comment on above: Order Comment: Name Collection Type:: Clean-Voided Midstream Result Comment: PERF ORMED BY: [place] [address] PATHOLOGIST CATTLE EXAMINER GOSIA MCADAMS M.D. Performed By: #### A DDONUAPLUS #### [address] Ketones Ql (U) Negative Normal Negative [facility] Comment on above: Order Comment: Name Collection Type:: Clean-Voided Midstream Performed By: #### A DDONUAPLUS #### [address] Leukocyte esterase Test strip Ql (U) 1+ High Negative [facility] Comment on above: Order Comment: Name Collection Type:: Clean-Voided Midstream Performed By: #### A DDONUAPLUS #### [place] [address] [place] Nitrite,Urine Negative Normal Negative [facility] Comment on above: Order Comment: Name Collection Type:: Clean-Voided Midstream Performed By: #### A DDONUAPLUS #### [place] [address] [place] Occult Blood,Urine Negative Normal Negative [facility] Comment on above: Order Comment: Name Collection Type:: Clean-Voided Midstream Result Comment: PERF ORMED BY: [place] [address] PATHOLOGIST CATTLE EXAMINER GOSIA MCADAMS M.D. Performed By: #### A DDONUAPLUS #### [place] [address] [place] pH (U) 7.0 [pH] Normal 5.0-9.0 [facility] Comment on above: Order Comment: Name Collection Type:: Clean-Voided Midstream Performed By: #### A DDONUAPLUS #### [place] [address] [place] Protein,Urine Negative Normal Negative [facility] Comment on above: Order Comment: Name Collection Type:: Clean-Voided Midstream Performed By: #### A DDONUAPLUS #### [address] [place] [address] [place] RBC LM.HPF (Urine sed) [#/Area] 0 /[HPF] Normal 0-4 [facility] Comment on above: Order Comment: Name Collection Type:: Clean-Voided Midstream Performed By: #### A DDONUAPLUS #### [facility] [address] [place] [address] Specificy [place],Urine 1.009 Normal 1.001-1.030 [facility] Comment on above: Order Comment: Name Collection Type:: Clean-Voided Midstream Performed By: #### A DDONUAPLUS #### [facility] [address] [place] [address] Squamous Epithelial Cell,Urine 0-1 Normal 0-2 [facility] Comment on above: Order Comment: Name Collection Type:: Clean-Voided Midstream Performed By: #### A DDONUAPLUS #### [facility] [address] [place] [address] Urobilinogen,Urine Normal Normal Normal [facility] Comment on above: Order Comment: Name Collection Type:: Clean-Voided Midstream Performed By: #### A DDONUAPLUS #### [facility] [address] [place] [address] [place] WBC,Urine 1-2 Normal 0-4 [facility] Comment on above: Order Comment: Name Collection Type:: Clean-Voided Midstream Performed By: #### A DDONUAPLUS #### [facility] [address] [place] [address] ECG 12 lead ECGon 08-05-2022 ECG 12 lead ECG [facility] [place] [address] [place] [address] Electrocardiograph Report Signed Patient: Hiram Madrid MR#: [id number] : 1935 Acct:[id number] Age/Sex: 86 / F ADM Date: 08/05/22 Loc: ER Room: Type: [facility] ER Attending Dr: Ordering Provider: Camacho [...] branch block Confirmed by Camacho Ladd DO ([id number]) on 08/06/2022 1:49:12 AM Referred By: Electronically Signed By:Camacho Ladd DO Transcribed By: MUS Signed By Camacho Ladd DO [id number] Normal [facility] Eosinophils Auto (Bld) [#/Vo l]Ordered By: Camacho Ladd on 08-05-2022 Eosinophils (Bld) [#/Vol] 0.1 10*3/uL 0.0-0.45 [facility] Eosinophils/100 WBC Auto (Bl d)Ordered By: Camacho Ladd on 08-05-2022 Eosinophils/100 WBC (Bld) 0.6 % . [facility] Erythrocyte distribution wid th Auto (RBC) [Ratio]Ordered By: Camacho Ladd on 08-05-2022 Erythrocyte distribution width (RBC) [Ratio] 13.6 % 11.9-15.3 [facility] Globulin Calc (S) [Mass/Vol] Ordered By: Camacho Ladd on 08-05-2022 Globulin (S) [Mass/Vol] 2.9 g/dL [facility] Glucose [Mass/volume] in Ser um or PlasmaOrdered By: Camacho Ladd on 08-05-2022 Glucose [Mass/Vol] 156 mg/dL 70-100 [facility] Comment on above: ADA recommended refe rence rangeRandom Glucose Reference Range is dependent on time and content of last meal. Glucose of more than 200 mg/dL in a nonstressed, ambulatory subject supports the diagnosis of Diabetes Mellitus. Hematocrit Auto (Bld) [Volum e fraction]Ordered By: Camacho Ladd on 08-05-2022 Hematocrit (Bld) [Volume fraction] 37.3 % 34.0-46.4 [facility] Hemoglobin [Mass/volume] in BloodOrdered By: Camacho Ladd on 08-05-2022 Hemoglobin (Bld) [Mass/Vol] 13.0 g/dL 11.8-15.4 [facility] Hepatic Panelon 08-05-2022 Albumin [Mass/Vol] 4.4 g/dL Normal 3.5-5.7 [facility] Comment on above: Performed By: #### H S TROP, HEPATIC, LIPASE, CBC, BMP #### [facility] [address] Albumin/Globulin [Mass ratio] 1.5 {ratio} Normal [facility] Comment on above: Performed By: #### H S TROP, HEPATIC, LIPASE, CBC, BMP #### [facility] [address] ALP [Catalytic activity/Vol] 61 U/L Normal 34-104 [facility] Comment on above: Performed By: #### H S TROP, HEPATIC, LIPASE, CBC, BMP #### [facility] [address] [place] [address] [place] ALT [Catalytic activity/Vol] 16 U/L Normal 7-52 [facility] Comment on above: Performed By: #### H S TROP, HEPATIC, LIPASE, CBC, BMP #### [facility] [address] [place] [address] [place] AST [Catalytic activity/Vol] 21 U/L Normal 13-39 [facility] Comment on above: Performed By: #### H S TROP, HEPATIC, LIPASE, CBC, BMP #### [facility] [address] [place] [address] [place] Bilirubin [Mass/Vol] 0.7 mg/dL Normal 0.3-1.[address] [facility] Comment on above: Performed By: #### H S TROP, HEPATIC, LIPASE, CBC, BMP #### [facility] [address] [place] [address] [place] Bilirubin,Indirect 0.6 mg/dL Normal [facility] Comment on above: Performed By: #### H S TROP, HEPATIC, LIPASE, CBC, BMP #### [facility] [address] [place] [address] [place] Bilirubin.indirect [Mass/Vol] 0.10 mg/dL Normal 0.03-0.18 [facility] Comment on above: Performed By: #### H S TROP, HEPATIC, LIPASE, CBC, BMP #### [facility] [address] Globulin (S) [Mass/Vol] 2.9 g/dL Normal [facility] Comment on above: Performed By: #### H S TROP, HEPATIC, LIPASE, CBC, BMP #### [facility] [address] Protein [Mass/Vol] 7.3 g/dL Normal 6.4-8.9 [facility] Comment on above: Performed By: #### H S TROP, HEPATIC, LIPASE, CBC, BMP #### [address] Ketones Auto test strip (U) [Mass/Vol]Ordered By: Camacho Ladd on 08-05-2022 Ketones (U) [Mass/Vol] Negative Negative [facility] - UrinalysisOrder ed By: Camacho Ladd on 08-05-2022 Hyaline casts LM Ql (Urine sed) None seen [LPF] 0-8 [facility] Leukocytes [#/volume] correc sofiya for nucleated erythrocytes in Blood by Automated counOrdered By: Camacho Ladd on 08-05-2022 WBC corrected for nucl RBC Auto (Bld) [#/Vol] 14.2 10*3/uL 3.8-11.6 [facility] Lipaseon 08-05-2022 Lipase [Catalytic activity/Vol] 23.0 U/L Normal 11.0-82.0 [facility] Comment on above: Result Comment: PERF ORMED BY: [address] [place] [address] PATHOLOGIST CATTLE EXAMINER GOSIA MCADAMS M.D. Performed By: #### H S TROP, HEPATIC, LIPASE, CBC, BMP #### [facility] [address] [place] [address] Lipase [Enzymatic activity/v olume] in Serum or PlasmaOrdered By: Camacho Ladd on 08-05-2022 Lipase [Catalytic activity/Vol] 23.0 U/L 11.0-82.0 [facility] Lymphocytes Auto (Bld) [#/Vo l]Ordered By: Camacho Ladd on 08-05-2022 Lymphocytes (Bld) [#/Vol] 3.1 10*3/uL 1.00-4.8 [facility] Lymphocytes/100 WBC Auto (Bl d)Ordered By: Camacho Ladd on 08-05-2022 Lymphocytes/100 WBC (Bld) 21.9 % . [facility] MCH Auto (RBC) [Entitic mass ]Ordered By: Camacho Ladd on 08-05-2022 MCH (RBC) [Entitic mass] 31.6 pg 24.7-34.3 [facility] MCHC Auto (RBC) [Mass/Vol]Or dered By: Camacho Ladd on 08-05-2022 MCHC (RBC) [Mass/Vol] 35.0 g/dL 32.0-35.0 [facility] MCV Auto (RBC) [Entitic vol] Ordered By: Camacho Ladd on 08-05-2022 MCV (RBC) [Entitic vol] 90.4 fL 80-100 [facility] Monocyte distribution width [Entitic volume] in Blood by AutomatedOrdered By: Camacho Ladd on 08-05-2022 Monocyte distribution width Auto (Bld) [Entitic vol] 20.58 % 0.00-20.00 [facility] Comment on above: For adults in ED, MD W > 20.0 may be associated with a higher risk of sepsis during the first 12 hrs of hospital admission Monocytes Auto (Bld) [#/Vol] Ordered By: Camacho Ladd on 08-05-2022 Monocytes (Bld) [#/Vol] 1.4 10*3/uL 0.0-0.8 [facility] Monocytes/100 WBC Auto (Bld) Ordered By: Camacho Ladd on 08-05-2022 Monocytes/100 WBC (Bld) 9.6 % . [facility] Neutrophils Auto (Bld) [#/Vo l]Ordered By: Camacho Ladd on 08-05-2022 Neutrophils (Bld) [#/Vol] 9.6 10*3/uL 1.8-7.7 [facility] Neutrophils/100 WBC Auto (Bl d)Ordered By: Camacho Ladd on 08-05-2022 Neutrophils/100 WBC (Bld) 67.5 % . [facility] Nitrite Test strip Ql (U)Ord ered By: Camacho Ladd on 08-05-2022 Nitrite Ql (U) Negative Negative [facility] No Panel InformationOrdered By: Camacho Ladd on 08-05-2022 Estimated GFR (CKD-EPI) 53.284 mL/Min [facility] Creatinine Clearance (Chem 35.13 [facility] Nucleated erythrocytes [Pres ence] in Blood by Automated countOrdered By: Camacho Ladd on 08-05-2022 Nucleated RBC Auto Ql (Bld) 0.1 /100{WBC} 0-0.5 [facility] Platelet mean volume Auto (B ld) [Entitic vol]Ordered By: Camacho Ladd on 08-05-2022 Platelet mean volume (Bld) [Entitic vol] 7.2 fL 6.3-10.7 [facility] Platelets Auto (Bld) [#/Vol] Ordered By: Camacho Ladd on 08-05-2022 Platelets (Bld) [#/Vol] 500 10*3/uL 150-450 [facility] Potassium [Moles/volume] in Serum or PlasmaOrdered By: Camacho Ladd on 08-05-2022 Potassium [Moles/Vol] 3.0 mmol/L 3.5-5.1 [facility] Protein Auto test strip (U) [Mass/Vol]Ordered By: Camacho Ladd on 08-05-2022 Protein (U) [Mass/Vol] Negative Negative [facility] Protein [Mass/volume] in Ser um or PlasmaOrdered By: Camacho Ladd on 08-05-2022 Protein [Mass/Vol] 7.3 g/dL 6.4-8.9 [facility] RBC Auto (Bld) [#/Vol]Ordere d By: Camacho Ladd on 06-16-2023 RBC (Bld) [#/Vol] 4.13 10*6/uL 3.60-5.00 [facility] Serum or plasma albumin/glob ulin mass ratioOrdered By: Camacho Ladd on 08-05-2022 Albumin/Globulin [Mass ratio] 1.5 {ratio} [facility] Serum or plasma anion gap de terminationOrdered By: Camacho Ladd on 08-05-2022 Anion gap [Moles/Vol] 17.8 mmol[facility]L [facility] or plasma non-glucuron idated bilirubin measurement (mass/volume)Ordered By: Camacho Ladd on 08-05-2022 Bilirubin.indirect [Mass/Vol] 0.6 mg/dL [facility] Sodium [Moles/volume] in Ser um or PlasmaOrdered By: Camacho Ladd on 08-05-2022 Sodium [Moles/Vol] 125 mmol/L 136-145 [facility] Specific gravity Auto test s trip (U) [Rel density]Ordered By: Camacho Ladd on 08-05-2022 Specific gravity (U) [Rel density] 1.009 1.001-1.030 [facility] Squamous epithelial cells de tection in urine sediment by light microscopyOrdered By: Camacho Ladd on 08-05-2022 Epithelial cells.squamous LM Ql (Urine sed) 0-1 [HPF] 0-2 [facility] Troponin I High Sensitivityo n 08-05-2022 Troponin I High Sensitivity 7.7 pg/mL Normal 0.0-15.0 [facility] Comment on above: Result Comment: PERF ORMED BY: [place] [address] PATHOLOGIST CATTLE EXAMINER GOSIA MCADAMS M.D. Performed By: #### H S TROP, HEPATIC, LIPASE, CBC, BMP #### [address] Troponin I.cardiac [Mass/vol ume] in Serum or Plasma by Detection limit <= 0.01 ng/Ordered By: Camacho Ladd on 08-05-2022 Troponin I.cardiac DL <= 0.01 ng/mL [Mass/Vol] 7.7 pg/mL 0.0-15.0 [facility] Urea nitrogen [Mass/volume] in Serum or PlasmaOrdered By: Camacho Ladd on 08-05-2022 Urea nitrogen [Mass/Vol] 12 mg/dL 7-25 [facility] Urine bacteria detection by automated methodOrdered By: Camacho Ladd on 08-05-2022 Bacteria Auto Ql (U) None seen None Seen [facility] Urine clarity by refractomet ry automatedOrdered By: Camacho Ladd on 08-05-2022 Clarity Refractometry automated (U) Cloudy Clear [facility] Urine glucose measurement by automated test strip (mass/volume)Ordered By: Camacho Ladd on 08-05-2022 Glucose Auto test strip (U) [Mass/Vol] Normal mg/dL Normal [facility] Urine hemoglobin detection b y automated test stripOrdered By: Camacho Ladd on 08-05-2022 Hemoglobin Auto test strip Ql (U) Negative Negative [facility] Urine leukocyte esterase det ection by automated test stripOrdered By: Camacho Ladd on 08-05-2022 Leukocyte esterase Auto test strip Ql (U) 1+ Negative [facility] Urobilinogen Auto test strip (U) [Mass/Vol]Ordered By: Camacho Ladd on 08-05-2022 Urobilinogen (U) [Mass/Vol] Normal mg/dL Normal [facility] WBC Auto (Bld) [#/Vol]Ordere d By: Camacho Ladd on 08-05-2022 WBC (Bld) [#/Vol] 14.2 10*3/uL 3.8-11.6 [facility] pH Auto test strip (U)Ordere d By: Camacho Ladd on 08-05-2022 pH (U) 7.0 [pH] 5.0-9.0 [facility] BNPon 06-13-2022 Natriuretic peptide B (Bld) [Mass/Vol] 142.0 pg/mL Normal <=1,800.0 [facility] Comment on above: Performed By: #### T , BMP #### [facility] [address] [place] [address] Dr. Tasha Dodson CBC AUTO DIFFon 06-13-2022 BASO # 0.1 103/ul Normal 0.0-0.1 [facility] Comment on above: Performed By: #### T SH, BMP #### [facility] [address] [place] [address] Dr. Tasha Dodson Basophils/100 WBC (Bld) 1.0 % Normal 0.2-2.0 [facility] Comment on above: Performed By: #### T SH, BMP #### [facility] [address] [place] [address] Dr. Tasha Dodson EO # 0.3 103/ul Normal 0.0-0.7 [facility] Comment on above: Performed By: #### T SH, BMP #### [facility] [address] [place] [address] Dr. Tasha Dodson Eosinophils/100 WBC (Bld) 2.6 % Normal 0.9-7.0 [facility] Comment on above: Performed By: #### T SH, BMP #### [facility] [address] [place] [address] Dr. Tasha Dodson Erythrocyte distribution width (RBC) [Ratio] 13.4 % Normal 11.0-15.0 [facility] Comment on above: Performed By: #### T SH, BMP #### [facility] [address] [place] [address] Dr. Tasha Dodson Hematocrit (Bld) [Volume fraction] 39.5 % Normal 36.0-48.0 [facility] Comment on above: Performed By: #### T SH, BMP #### [facility] [address] [place] [address] Dr. Tasha Dodson Hemoglobin (Bld) [Mass/Vol] 13.1 g/dL Normal 12.0-16.0 [facility] Comment on above: Performed By: #### T SH, BMP #### [facility] [address] [place] [address] Dr. Tasha Dodson IG # 0.07 10e3/ul Critically high 0.00-0.03 [facility] Comment on above: Performed By: #### T SH, BMP #### [facility] [address] [address] [address] Tasha Dodson IG % 0.6 % Critically high 0.0-0.5 [facility] Comment on above: Performed By: #### T SH, BMP #### [facility] [address] [address] [address] Tasha Dodson LYMPH # 2.5 103/ul Normal 1.2-3.8 [facility] Comment on above: Performed By: #### T SH, BMP #### [facility] [address] [address] [address] Tasha Dodson Lymphocytes/100 WBC (Bld) 22.9 % Normal 20.5-60.0 [facility] Comment on above: Performed By: #### T SH, BMP #### [facility] [address] [address] [address] Tasha Dodson MANUAL DIFF REQ NO Normal [facility] Comment on above: Performed By: #### T SH, BMP #### [facility] [address] [address] [address] Tasha Dodson MCH (RBC) [Entitic mass] 30.7 pg Normal 26.7-34.0 [facility] Comment on above: Performed By: #### T SH, BMP #### [facility] [address] [address] [address] Tasha Dodson MCHC (RBC) [Mass/Vol] 33.2 g/dL Normal 29.9-35.2 [facility] Comment on above: Performed By: #### T SH, BMP #### [facility] [address] [address] [address] Tasha Dodson MCV (RBC) [Entitic vol] 92.5 fL Normal 81.0-99.0 [facility] Comment on above: Performed By: #### T SH, BMP #### [facility] [address] [address] [address] Tasha Dodson MONO # 0.8 103/ul Normal 0.3-0.8 [facility] Comment on above: Performed By: #### T SH, BMP #### [facility] [address] [address] [address] Tasha Dodson Monocytes/100 WBC (Bld) 7.0 % Normal 1.7-12.0 [facility] Comment on above: Performed By: #### T SH, BMP #### [facility] [address] [place] [address] Dr. Tasha Dodson NEUT # 7.2 103/ul Critically high 1.4-6.5 [facility] Comment on above: Performed By: #### T SH, BMP #### [facility] [address] [place] [address] Dr. Tasha Dodson Neutrophils/100 WBC (Bld) 65.9 % Normal 43.0-75.0 [facility] Comment on above: Performed By: #### T SH, BMP #### [facility] [address] [place] [address] Dr. Tasha Dodson Platelet mean volume (Bld) [Entitic vol] 8.0 fL Critically low 9.5-13.5 [facility] Comment on above: Performed By: #### T SH, BMP #### [facility] [address] [place] [address] Dr. Tasha Dodson PLT 449 103/ul Normal 150-450 [facility] Comment on above: Performed By: #### T SH, BMP #### [facility] [address] [place] [address] Dr. Tasha Dodson RBC 4.27 106/ul Normal 4.20-5.40 [facility] Comment on above: Performed By: #### T SH, BMP #### [facility] [address] [place] [address] Dr. Tasha Dodson WBC 10.9 103/ul Normal 4.0-11.0 [facility] Comment on above: Performed By: #### T SH, BMP #### [facility] [address] [place] [address] Dr. Tasha Dodson FREE THYROXINE INDEX T7on FTI 3.67 Normal 1.30-4.50 [facility] Comment on above: Performed By: #### T SH, BMP #### [facility] [address] [place] [address] Dr. Tasha Dodson T3U 36.0 % Normal 30.0-39.0 [facility] Comment on above: Performed By: #### T SH, BMP #### [facility] [address] [place] [address] Dr. Tasha Dodson T4 [Mass/Vol] 10.20 ug/dL Normal 4.80-13.90 [facility] Comment on above: Performed By: #### T SH, BMP #### [facility] [address] [place] [address] Dr. Tasha Dodson PROF CHEM 8 (BAS METB)on Anion gap [Moles/Vol] 13.8 mmol/L Normal [facility] Comment on above: Performed By: #### T SH, BMP #### [facility] [address] [place] [address] Dr. Tasha Dodson Calcium [Mass/Vol] 9.8 mg/dL Normal 8.5-10.1 [facility] Comment on above: Performed By: #### T SH, BMP #### [facility] [address] [place] [address] Dr. Tasha Dodson Chloride [Moles/Vol] 95 mmol/L Critically low 98-107 [facility] Comment on above: Performed By: #### T SH, BMP #### [facility] [address] [place] [address] Dr. Tasha Dodson CO2 [Moles/Vol] 30.5 mmol/L Normal 21.0-32.0 [facility] Comment on above: Performed By: #### T SH, BMP #### [facility] [address] [place] [address] Dr. Tasha Dodson Creatinine [Mass/Vol] 0.78 mg/dL Normal 0.55-1.02 [facility] Comment on above: Performed By: #### T SH, BMP #### [facility] [address] [place] [address] Dr. Tasha Dodson EGFR-AF MACEDONIAN >60 Normal >=60 [facility] Comment on above: Performed By: #### T SH, BMP #### [facility] [address] [place] [address] Dr. Tasha Dodson EGFR-NON AF MACEDONIAN >60 Normal >=60 [facility] Comment on above: Performed By: #### T SH, BMP #### [facility] [address] [place] [address] Dr. Tasha Dodson Glucose [Mass/Vol] 108 mg/dL Critically high 74-106 [facility] Comment on above: Performed By: #### T SH, BMP #### [facility] [address] [place] [address] Dr. Tasha Dodson Potassium [Moles/Vol] 3.3 mmol/L Critically low 3.5-5.1 [facility] Comment on above: Performed By: #### T SH, BMP #### [facility] [address] [place] [address] Dr. Tasha Dodson Sodium [Moles/Vol] 136 mmol/L Normal 136-145 [facility] Comment on above: Performed By: #### T SH, BMP #### [facility] [address] [place] [address] Dr. Tasha Dodson Urea nitrogen [Mass/Vol] 11.0 mg/dL Normal 7.0-18.0 [facility] Comment on above: Performed By: #### T SH, BMP #### [facility] [address] [place] [address] Dr. Tasha Dodson Urea nitrogen/Creatinine [Mass ratio] 14.1 mg/mg Normal [facility] Comment on above: Performed By: #### T SH, BMP #### [facility] [address] [place] [address] Dr. Tasha Dodson TSHon 06-13-2022 TSH 2.583 uIU/mL Normal 0.358-3.740 [facility] Comment on above: Performed By: #### T SH, BMP #### [facility] [address] [place] [address] Dr. Tasha Dodson UA (CLEAN/CATCH) [employer]IFTS OFFICER/MICRO I F IND.on 06-13-2022 Bilirubin Ql (U) Negative Normal NEGATIVE [facility] Comment on above: Performed By: #### T SH, BMP #### [facility] [address] [place] [address] Dr. Tasha Dodson Clarity (U) CLEAR Normal CLEAR [facility] Comment on above: Performed By: #### T SH, BMP #### [facility] [address] [place] [address] Dr. Tasha Dodson Color (U) LT. YELLOW Normal YELLOW [facility] Comment on above: Performed By: #### T SH, BMP #### [facility] [address] [place] [address] Dr. Tasha Dodson Glucose Ql (U) Negative Normal NEGATIVE [facility] Comment on above: Performed By: #### T SH, BMP #### [facility] [address] [place] [address] Dr. Tasha Dodson Hemoglobin Ql (U) Negative Normal NEGATIVE [facility] Comment on above: Performed By: #### T SH, BMP #### [facility] [address] [place] [address] Dr. Tasha Dodson Ketones Ql (U) Negative Normal NEGATIVE [facility] Comment on above: Performed By: #### T SH, BMP #### [facility] [address] [place] [address] Dr. Tasha Dodson LEUKOCYTES Negative Normal NEGATIVE [facility] Comment on above: Performed By: #### T SH, BMP #### [facility] [address] [place] [address] Dr. Tasha Dodson Nitrite Ql (U) Negative Normal NEGATIVE [facility] Comment on above: Performed By: #### T SH, BMP #### [facility] [address] [place] [address] Dr. Tasha Dodson pH (U) 7.0 [pH] Normal 5-9 [facility] Comment on above: Performed By: #### T SH, BMP #### [facility] [address] [place] [address] Dr. Tasha Dodson SPEC GRAVITY 1.010 Normal 1.005-<=1.0 25 [facility] Comment on above: Performed By: #### T SH, BMP #### [facility] [address] [place] [address] Dr. Tasha Dodson UA PROTEIN Negative Normal NEGATIVE/ TRACE [facility] Comment on above: Performed By: #### T SH, BMP #### [facility] [address] [place] [address] Dr. Tasha Dodson UR MICRO IND NOT INDICATED Normal [facility] Comment on above: Performed By: #### T SH, BMP #### [facility] [address] [place] [address] Dr. Tasha Dodson Urobilinogen Qn (U) 0.2 {Juan'U}/dL Normal 0.2 - 1. 0 [facility] Comment on above: Performed By: #### T JESI, BMP #### [facility] [address] [place] [address] Dr. Tasha Dodson ECHOCARDIO M/2D COMPLETEon 0 04-18-2022 ECHOCARDIO M/2D COMPLETE Patient: HIRAM MADRID Exam Date: 04/18/2022 : 1935 Gender:F Ordering : DR VALERIE DARDEN M.D. Admission #: [id number] Family : DR ADDY DANIELS . Order #: [id number] CLICK HERE TO VIEW EXAM ECHOCARDIOGRAM REPORT [...] Barragan M.D. on 04/19/2022 at 18:55 Normal [facility] Office Visiton 04-04-2022 Follow-up visit [id number] Hiram Madrid 1935 F Date Provider Department Center 04/04/2022 Yazmin-VALERIE DARDEN [facility] Family History Problem Relation Age of Onset Hypertension Mother Lupus Mother Coronary artery disease Mother Heart attack Mother Hypertension Father Aneurysm Father Coronary artery disease Father Hypertension Sister Lupus Sister Family Status - Relation Status Age at Mother Father Sister Level of Service:65188 [place] OFFICE/OUTPATIENT ESTABLISHED MOD MDM 30-39 MIN Reason for Visit and Comments: Hyperlipidemia [182] Hypertension [792361] carotid artery stenosis [Other] 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 Tasha Dodson Basophils/100 WBC (Bld) 0.6 % Normal 0.2-2.0 T [facility] Comment on above: Performed By: #### C BC #### [facility] [address] [address] [address] Tasha Dodson EO # 0.1 103/ul Normal 0.0-0.7 [facility] Comment on above: Performed By: #### C BC #### [facility] [address] [place] [address] Dr. Tasha Dodson Eosinophils/100 WBC (Bld) 0.9 % Normal 0.9-7.0 [facility] Comment on above: Performed By: #### C BC #### [facility] [address] [place] [address] Dr. Tasha Dodson Erythrocyte distribution width (RBC) [Ratio] 13.0 % Normal 11.0-15.0 [facility] Comment on above: Performed By: #### C BC #### [facility] [address] [place] [address] Dr. Tasha Dodson Hematocrit (Bld) [Volume fraction] 38.5 % Normal 36.0-48.0 [facility] Comment on above: Performed By: #### C BC #### [facility] [address] [place] [address] Dr. Tasha Dodson Hemoglobin (Bld) [Mass/Vol] 13.4 g/dL Normal 12.0-16.0 [facility] Comment on above: Performed By: #### C BC #### [facility] [address] [place] [address] Dr. Tasha Dodson IG # 0.07 10e3/ul Critically high 0.00-0.03 [facility] Comment on above: Performed By: #### C BC #### [facility] [address] [place] [address] Dr. Tasha Dodson IG % 0.5 % Normal 0.0-0.5 [facility] Comment on above: Performed By: #### C BC #### [facility] [address] [place] [address] Dr. Tasha Dodson LYMPH # 2.8 103/ul Normal 1.2-3.8 [facility] Comment on above: Performed By: #### C BC #### [facility] [address] [place] [address] Dr. Tasha Dodson Lymphocytes/100 WBC (Bld) 20.5 % Normal 20.5-60.0 [facility] Comment on above: Performed By: #### C BC #### [facility] [address] [place] [address] Dr. Tasha Dodson MANUAL DIFF REQ NO Normal [facility] Comment on above: Performed By: #### C BC #### [facility] [address] [place] [address] Dr. Tasha Dodson MCH (RBC) [Entitic mass] 30.7 pg Normal 26.7-34.0 [facility] Comment on above: Performed By: #### C BC #### [facility] [address] [place] [address] Dr. Tasha Dodson MCHC (RBC) [Mass/Vol] 34.8 g/dL Normal 29.9-35.2 [facility] Comment on above: Performed By: #### C BC #### [facility] [address] [place] [address] Dr. Tasha Dodson MCV (RBC) [Entitic vol] 88.3 fL Normal 81.0-99.0 [facility] Comment on above: Performed By: #### C BC #### [facility] [address] [place] [address] Dr. Tasha Dodson MONO # 1.0 103/ul Critically high 0.3-0.8 [facility] Comment on above: Performed By: #### C BC #### [facility] [address] [place] [address] Dr. Tasha Dodson Monocytes/100 WBC (Bld) 7.4 % Normal 1.7-12.0 [facility] Comment on above: Performed By: #### C BC #### [facility] [address] [place] [address] Dr. Tasha Dodson NEUT # 9.5 103/ul Critically high 1.4-6.5 [facility] Comment on above: Performed By: #### C BC #### [facility] [address] [place] [address] Dr. Tasha Dodson Neutrophils/100 WBC (Bld) 70.1 % Normal 43.0-75.0 [facility] Comment on above: Performed By: #### C BC #### [facility] [address] [address] [address] Tasha Dodson Platelet mean volume (Bld) [Entitic vol] 8.0 fL Critically low 9.5-13.5 [facility] Comment on above: Performed By: #### C BC #### [facility] [address] [place] [address] Dr. Tasha Dodson PLT 492 103/ul Critically high 150-450 [facility] Comment on above: Performed By: #### C BC #### [facility] [address] [place] [address] Dr. Tasha Dodson RBC 4.36 106/ul Normal 4.20-5.40 [facility] Comment on above: Performed By: #### C BC #### [facility] [address] [place] [address] Dr. Tasha Dodson WBC 13.5 103/ul Critically high 4.0-11.0 [facility] Comment on above: Performed By: #### C BC #### [facility] [address] [place] [address] Dr. Tasha Dodson PROF 14(COMP METB)on 01-04- 022 Albumin [Mass/Vol] 3.8 g/dL Normal 3.4-5.0 [facility] Comment on above: Performed By: #### T SH, BMP #### [facility] [address] [place] [address] Dr. Tasha Dodson Albumin/Globulin [Mass ratio] 0.9 {ratio} Normal [facility] Comment on above: Performed By: #### T SH, BMP #### [facility] [address] [place] [address] Dr. Tasha Dodson ALP [Catalytic activity/Vol] 60 U/L Normal 46-116 [facility] Comment on above: Performed By: #### T SH, BMP #### [facility] [address] [place] [address] Dr. Tasha Dodson ALT [Catalytic activity/Vol] 26 U/L Normal 14-59 [facility] Comment on above: Performed By: #### T SH, BMP #### [facility] [address] [address] [address] Tasha Dodson Anion gap [Moles/Vol] 8.4 mmol/L Normal [facility] Comment on above: Performed By: #### T SH, BMP #### [facility] [address] [address] [address] Tasha Dodson AST [Catalytic activity/Vol] 19 U/L Normal 15-37 [facility] Comment on above: Performed By: #### T SH, BMP #### [facility] [address] [place] [address] Dr. Tasha Dodson Bilirubin [Mass/Vol] 0.4 mg/dL Normal 0.2-1.0 [facility] Comment on above: Performed By: #### T SH, BMP #### [facility] [address] [place] [address] Dr. Tasha Dodson Calcium [Mass/Vol] 10.1 mg/dL Normal 8.5-10.1 [facility] Comment on above: Performed By: #### T SH, BMP #### [facility] [address] [place] [address] Dr. Tasha Dodson Chloride [Moles/Vol] 92 mmol/L Critically low 98-107 [facility] Comment on above: Performed By: #### T SH, BMP #### [facility] [address] [place] [address] Dr. Tasha Dodson CO2 [Moles/Vol] 33.8 mmol/L Critically high 21.0-32.0 [facility] Comment on above: Performed By: #### T SH, BMP #### [facility] [address] [place] [address] Dr. Tasha Dodson Creatinine [Mass/Vol] 0.67 mg/dL Normal 0.55-1.02 [facility] Comment on above: Performed By: #### T SH, BMP #### [facility] [address] [place] [address] Dr. Tasha Dodson EGFR-AF MACEDONIAN >60 Normal >=[address] [facility] Comment on above: Performed By: #### T SH, BMP #### [facility] [address] [address] [address] Tasha Dodson EGFR-NON AF MACEDONIAN >60 Normal >=60 [facility] Comment on above: Performed By: #### T SH, BMP #### [facility] [address] [address] [address] Tasha Dodson Globulin (S) [Mass/Vol] 4.1 g/dL Normal [facility] Comment on above: Performed By: #### T SH, BMP #### [facility] [address] [place] [address] Dr. Tasha Dodson Glucose [Mass/Vol] 106 mg/dL Normal 74-106 [facility] Comment on above: Performed By: #### T SH, BMP #### [facility] [address] [place] [address] Dr. Tasha Dodson Potassium [Moles/Vol] 3.2 mmol/L Critically low 3.5-5.1 [facility] Comment on above: Performed By: #### T JESI, BMP #### [facility] [address] [place] [address] Dr. Tasha Dodson Protein [Mass/Vol] 7.9 g/dL Normal 6.4-8.2 [facility] Comment on above: Performed By: #### T JESI, BMP #### [facility] [address] [place] [address] Dr. Tasha Dodson Sodium [Moles/Vol] 131 mmol/L Critically low 136-145 [facility] Comment on above: Performed By: #### T SH, BMP #### [facility] [address] [place] [address] Dr. Tasha Dodson Urea nitrogen [Mass/Vol] 10.0 mg/dL Normal 7.0-18.0 [facility] Comment on above: Performed By: #### T SH, BMP #### [facility] [address] [place] [address] Dr. Tasha Dodson Urea nitrogen/Creatinine [Mass ratio] 14.9 mg/mg Normal [facility] Comment on above: Performed By: #### T JESI, BMP #### [facility] [address] [place] [address] Dr. Tasha Dodson CBC AUTO DIFFon 12-29-2021 BASO # 0.1 103/ul Normal 0.0-0.1 [facility] Comment on above: Performed By: #### C BC #### [facility] [address] [place] [address] Dr. Tasha Dodson Basophils/100 WBC (Bld) 0.5 % Normal 0.2-2.0 [facility] Comment on above: Performed By: #### C BC #### [facility] [address] [place] [address] Dr. Tasha Dodson EO # 0.1 103/ul Normal 0.0-0.7 [facility] Comment on above: Performed By: #### C BC #### [facility] [address] [place] [address] Dr. Tasha Dodson Eosinophils/100 WBC (Bld) 0.4 % Critically low 0.9-7.0 [facility] Comment on above: Performed By: #### C BC #### [facility] [address] [place] [address] Dr. Tasha Dodson Erythrocyte distribution width (RBC) [Ratio] 13.0 % Normal 11.0-15.0 [facility] Comment on above: Performed By: #### C BC #### [facility] [address] [place] [address] Dr. Tasha Dodson Hematocrit (Bld) [Volume fraction] 34.0 % Critically low 36.0-48.0 [facility] Comment on above: Performed By: #### C BC #### [facility] [address] [place] [address] Dr. Tasha Dosdon Hemoglobin (Bld) [Mass/Vol] 12.0 g/dL Normal 12.0-16.0 [facility] Comment on above: Performed By: #### C BC #### [facility] [address] [place] [address] Dr. Tasha Dodson IG # 0.06 10e3/ul Critically high 0.00-0.03 [facility] Comment on above: Performed By: #### C BC #### [facility] [address] [address] [address] Tasha Dodson IG % 0.4 % Normal 0.0-0.5 [facility] Comment on above: Performed By: #### C BC #### [facility] [address] [place] [address] Dr. Tasha Dodson LYMPH # 2.5 103/ul Normal 1.2-3.8 [facility] Comment on above: Performed By: #### C BC #### [facility] [address] [place] [address] Dr. Tasha Dodson Lymphocytes/100 WBC (Bld) 17.4 % Critically low 20.5-60.0 [facility] Comment on above: Performed By: #### C BC #### [facility] [address] [place] [address] Dr. Tasha Dodson MANUAL DIFF REQ NO Normal [facility] Comment on above: Performed By: #### C BC #### [facility] [address] [place] [address] Dr. Tasha Dodson MCH (RBC) [Entitic mass] 31.0 pg Normal 26.7-34.0 [facility] Comment on above: Performed By: #### C BC #### [facility] [address] [place] [address] Dr. Tasha Dodson MCHC (RBC) [Mass/Vol] 35.3 g/dL Critically high 29.9-35.2 [facility] Comment on above: Performed By: #### C BC #### [facility] [address] [place] [address] Dr. Tasha Dodson MCV (RBC) [Entitic vol] 87.9 fL Normal 81.0-99.0 [facility] Comment on above: Performed By: #### C BC #### [facility] [address] [place] [address] Dr. Tasha Dodson MONO # 1.0 103/ul Critically high 0.3-0.8 [facility] Comment on above: Performed By: #### C BC #### [facility] [address] [address] [address] Tasha Dodson Monocytes/100 WBC (Bld) 6.9 % Normal 1.7-12.0 [facility] Comment on above: Performed By: #### C BC #### [facility] [address] [address] [address] Tasha Dodson NEUT # 10.8 103/ul Critically high 1.4-6.5 [facility] Comment on above: Performed By: #### C BC #### [facility] [address] [address] [address] Tasha Dodson Neutrophils/100 WBC (Bld) 74.4 % Normal 43.0-75.0 [facility] Comment on above: Performed By: #### C BC #### [facility] [address] [place] [address] Dr. Tasha Dodson Platelet mean volume (Bld) [Entitic vol] 8.4 fL Critically low 9.5-13.5 [facility] Comment on above: Performed By: #### C BC #### [facility] [address] [place] [address] Dr. Tasha Dodson PLT 370 103/ul Normal 150-450 [facility] Comment on above: Performed By: #### C BC #### [facility] [address] [place] [address] Dr. Tasha Dodson RBC 3.87 106/ul Critically low 4.20-5.40 [facility] Comment on above: Performed By: #### C BC #### [facility] [address] [place] [address] Dr. Tasha Dodson WBC 14.5 103/ul Critically high 4.0-11.0 [facility] Comment on above: Performed By: #### C BC #### [facility] [address] [place] [address] Dr. Tasha Dodson PROF 14(COMP METB)on 022 Albumin [Mass/Vol] 2.8 g/dL Critically low 3.4-5.0 [facility] Comment on above: Performed By: #### T SH, BMP #### [facility] [address] [place] [address] Dr. Tasha Dodson Albumin/Globulin [Mass ratio] 0.9 {ratio} Normal [facility] Comment on above: Performed By: #### T SH, BMP #### [facility] [address] [place] [address] Dr. Tasha Dodson ALP [Catalytic activity/Vol] 51 U/L Normal 46-116 [facility] Comment on above: Performed By: #### T SH, BMP #### [facility] [address] [address] [address] Tasha Dodson ALT [Catalytic activity/Vol] 15 U/L Normal 14-59 [facility] Comment on above: Performed By: #### T SH, BMP #### [facility] [address] [place] [address] Dr. Tasha Dodson Anion gap [Moles/Vol] 9.7 mmol/L Normal [facility] Comment on above: Performed By: #### T SH, BMP #### [facility] [address] [place] [address] Dr. Tasha Dodson AST [Catalytic activity/Vol] 15 U/L Normal 15-37 [facility] Comment on above: Performed By: #### T SH, BMP #### [facility] [address] [place] [address] Dr. Tasha Dodson Bilirubin [Mass/Vol] 0.4 mg/dL Normal 0.2-1.0 [facility] Comment on above: Performed By: #### T SH, BMP #### [facility] [address] [place] [address] Dr. Tasha Dodson Calcium [Mass/Vol] 8.6 mg/dL Normal 8.5-10.1 [facility] Comment on above: Performed By: #### T SH, BMP #### [facility] [address] [place] [address] Dr. Tasha Dodson Chloride [Moles/Vol] 97 mmol/L Critically low 98-107 [facility] Comment on above: Performed By: #### T SH, BMP #### [facility] [address] [address] [address] Tasha Dodson CO2 [Moles/Vol] 25.8 mmol/L Normal 21.0-32.0 [facility] Comment on above: Performed By: #### T SH, BMP #### [facility] [address] [address] [address] Tasha Dodson Creatinine [Mass/Vol] 0.52 mg/dL Critically low 0.55-1.02 [facility] Comment on above: Performed By: #### T SH, BMP #### [facility] [address] [place] [address] Dr. Tasha Dodson EGFR-AF MACEDONIAN >60 Normal >=60 [facility] Comment on above: Performed By: #### T SH, BMP #### [facility] [address] [place] [address] Dr. Tasha Dodson EGFR-NON AF MACEDONIAN >60 Normal >=60 [facility] Comment on above: Performed By: #### T SH, BMP #### [facility] [address] [place] [address] Dr. Tasha Dodson Globulin (S) [Mass/Vol] 3.2 g/dL Normal [facility] Comment on above: Performed By: #### T SH, BMP #### [facility] [address] [place] [address] Dr. Tasha Dodson Glucose [Mass/Vol] 117 mg/dL Critically high 74-106 [facility] Comment on above: Performed By: #### T SH, BMP #### [facility] [address] [place] [address] Dr. Tasha Dodson Potassium [Moles/Vol] 3.5 mmol/L Normal 3.5-5.1 [facility] Comment on above: Performed By: #### T SH, BMP #### [facility] [address] [place] [address] Dr. Tasha Dodson Protein [Mass/Vol] 6.0 g/dL Critically low 6.4-8.2 [facility] Comment on above: Performed By: #### T SH, BMP #### [facility] [address] [place] [address] Dr. Tasha Dodson Sodium [Moles/Vol] 129 mmol/L Critically low 136-145 [facility] Comment on above: Performed By: #### T JESI, BMP #### [facility] [address] [place] [address] Dr. Tasha Dodson Urea nitrogen [Mass/Vol] 4.0 mg/dL Critically low 7.0-18.0 [facility] Comment on above: Performed By: #### T JESI, BMP #### [facility] [address] [place] [address] Dr. Tasha Dodson Urea nitrogen/Creatinine [Mass ratio] 7.7 mg/mg Normal [facility] Comment on above: Performed By: #### T JESI, BMP #### [facility] [address] [place] [address] Dr. Tasha Dodson CBC AUTO DIFFon 12-28-2021 BASO # 0.1 103/ul Normal 0.0-0.1 [facility] Comment on above: Performed By: #### C BC #### [facility] [address] [place] [address] Dr. Tasha Dodson Basophils/100 WBC (Bld) 0.4 % Normal 0.2-2.0 [facility] Comment on above: Performed By: #### C BC #### [facility] [address] [place] [address] Dr. Tasha Dodson EO # 0.1 103/ul Normal 0.0-0.7 [facility] Comment on above: Performed By: #### C BC #### [facility] [address] [place] [address] Dr. Tasha Dodson Eosinophils/100 WBC (Bld) 0.4 % Critically low 0.9-7.0 [facility] Comment on above: Performed By: #### C BC #### [facility] [address] [place] [address] Dr. Tasha Dodson Erythrocyte distribution width (RBC) [Ratio] 12.9 % Normal 11.0-15.0 [facility] Comment on above: Performed By: #### C BC #### [facility] [address] [place] [address] Dr. Tasha Dodson Hematocrit (Bld) [Volume fraction] 34.2 % Critically low 36.0-48.0 [facility] Comment on above: Performed By: #### C BC #### [facility] [address] [place] [address] Dr. Tasha Dodson Hemoglobin (Bld) [Mass/Vol] 12.4 g/dL Normal 12.0-16.0 [facility] Comment on above: Performed By: #### C BC #### [facility] [address] [place] [address] Dr. Tasha Dodson IG # 0.09 10e3/ul Critically high 0.00-0.03 [facility] Comment on above: Performed By: #### C BC #### [facility] [address] [place] [address] Dr. Tasha Dodson IG % 0.6 % Critically high 0.0-0.5 [facility] Comment on above: Performed By: #### C BC #### [facility] [address] [place] [address] Dr. Tasha Dodson LYMPH # 2.2 103/ul Normal 1.2-3.8 [facility] Comment on above: Performed By: #### C BC #### [facility] [address] [place] [address] Dr. Tasha Dodson Lymphocytes/100 WBC (Bld) 13.6 % Critically low 20.5-60.0 [facility] Comment on above: Performed By: #### C BC #### [facility] [address] [place] [address] Dr. Tasha Dodson MANUAL DIFF REQ NO Normal [facility] Comment on above: Performed By: #### C BC #### [facility] [address] [place] [address] Dr. Tasha Dodson MCH (RBC) [Entitic mass] 31.2 pg Normal 26.7-34.0 [facility] Comment on above: Performed By: #### C BC #### [facility] [address] [address] [address] Tasha Dodson MCHC (RBC) [Mass/Vol] 36.3 g/dL Critically high 29.9-35.2 [facility] Comment on above: Performed By: #### C BC #### [facility] [address] [address] [address] Tasha Dodson MCV (RBC) [Entitic vol] 85.9 fL Normal 81.0-99.0 [facility] Comment on above: Performed By: #### C BC #### [facility] [address] [address] [address] Tasha Dodson MONO # 1.3 103/ul Critically high 0.3-0.8 [facility] Comment on above: Performed By: #### C BC #### [facility] [address] [place] [address] Dr. Tasha Dodson Monocytes/100 WBC (Bld) 7.8 % Normal 1.7-12.0 [facility] Comment on above: Performed By: #### C BC #### [facility] [address] [address] [address] Tasha Dodson NEUT # 12.4 103/ul Critically high 1.4-6.5 [facility] Comment on above: Performed By: #### C BC #### [facility] [address] [place] [address] Dr. Tasha Dodson Neutrophils/100 WBC (Bld) 77.2 % Critically high 43.0-75.0 [facility] Comment on above: Performed By: #### C BC #### [facility] [address] [place] [address] [address] Tasha Dodson Platelet mean volume (Bld) [Entitic vol] 8.6 fL Critically low 9.5-13.5 [facility] Comment on above: Performed By: #### C BC #### [facility] [address] [place] [address] Dr. Tasha Dodson PLT 385 103/ul Normal 150-450 [facility] Comment on above: Performed By: #### C BC #### [facility] [address] [address] [address] Tasha Dodson RBC 3.98 106/ul Critically low 4.20-5.40 [facility] Comment on above: Performed By: #### C BC #### [facility] [address] [address] [address] Tasha Dodson WBC 16.1 103/ul Critically high 4.0-11.0 [facility] Comment on above: Performed By: #### C BC #### [facility] [address] [place] [address] Dr. Tasha Dodson PROF 14(COMP METB)on 022 Albumin [Mass/Vol] 3.2 g/dL Critically low 3.4-5.0 [facility] Comment on above: Performed By: #### T SH, BMP #### [facility] [address] [place] [address] Dr. Tasha Dodson Albumin/Globulin [Mass ratio] 1.0 {ratio} Normal [facility] Comment on above: Performed By: #### T SH, BMP #### [facility] [address] [place] [address] Dr. Tasha Dodson ALP [Catalytic activity/Vol] 51 U/L Normal 46-116 [facility] Comment on above: Performed By: #### T SH, BMP #### [facility] [address] [place] [address] Dr. Tasha Dodson ALT [Catalytic activity/Vol] 17 U/L Normal 14-59 [facility] Comment on above: Performed By: #### T SH, BMP #### [facility] [address] [place] [address] Dr. Tasha Dodson Anion gap [Moles/Vol] 10.5 mmol/L Normal [facility] Comment on above: Performed By: #### T SH, BMP #### [facility] [address] [place] [address] Dr. Tasha Dodson AST [Catalytic activity/Vol] 18 U/L Normal 15-37 [facility] Comment on above: Performed By: #### T SH, BMP #### [facility] [address] [address] [address] Tasha Dodson Bilirubin [Mass/Vol] 0.4 mg/dL Normal 0.2-1.0 [facility] Comment on above: Performed By: #### T SH, BMP #### [facility] [address] [place] [address] Dr. Tasha Dodson Calcium [Mass/Vol] 8.3 mg/dL Critically low 8.5-10.1 [facility] Comment on above: Performed By: #### T SH, BMP #### [facility] [address] [place] [address] Dr. Tasha Dodson Chloride [Moles/Vol] 96 mmol/L Critically low 98-107 [facility] Comment on above: Performed By: #### T SH, BMP #### [facility] [address] [place] [address] Dr. Tasha Dodson CO2 [Moles/Vol] 24.5 mmol/L Normal 21.0-32.0 [facility] Comment on above: Performed By: #### T SH, BMP #### [facility] [address] [place] [address] Dr. Tasha Dodson Creatinine [Mass/Vol] 0.54 mg/dL Critically low 0.55-1.02 [facility] Comment on above: Performed By: #### T SH, BMP #### [facility] [address] [place] [address] Dr. Tasha Dodson EGFR-AF MACEDONIAN >60 Normal >=[address] [facility] Comment on above: Performed By: #### T SH, BMP #### [facility] [address] [place] [address] Dr. Tasha Dodson EGFR-NON AF MACEDONIAN >60 Normal >=60 [facility] Comment on above: Performed By: #### T SH, BMP #### [facility] [address] [place] [address] Dr. Tasha Dodson Globulin (S) [Mass/Vol] 3.1 g/dL Normal T [facility] Comment on above: Performed By: #### T SH, BMP #### [facility] [address] [place] [address] Dr. Tasha Dodson Glucose [Mass/Vol] 123 mg/dL Critically high 74-106 [facility] Comment on above: Performed By: #### T , BMP #### [facility] [address] [place] [address] Dr. Tasha Dodson Potassium [Moles/Vol] 3.0 mmol/L Critically low 3.5-5.1 [facility] Comment on above: Performed By: #### T , BMP #### [facility] [address] [place] [address] Dr. Tasha Dodson Protein [Mass/Vol] 6.3 g/dL Critically low 6.4-8.2 [facility] Comment on above: Performed By: #### T , BMP #### [facility] [address] [place] [address] Dr. Tasha Dodson Sodium [Moles/Vol] 128 mmol/L Critically low 136-145 [facility] Comment on above: Performed By: #### T , BMP #### [facility] [address] [place] [address] Dr. Tasha Dodson Urea nitrogen [Mass/Vol] 5.0 mg/dL Critically low 7.0-18.0 [facility] Comment on above: Performed By: #### T , BMP #### [facility] [address] [place] [address] Dr. Tasha Dodson Urea nitrogen/Creatinine [Mass ratio] 9.3 mg/mg Normal [facility] Comment on above: Performed By: #### T , BMP #### [facility] [address] [place] [address] Dr. Tasha Dodson SODIUM RANDOM URINEon 2021 Sodium (U) [Moles/Vol] 135 mmol/L Critically high 30-90 [facility] Comment on above: Performed By: #### C BC #### [facility] [address] [place] [address] Dr. Tasha Dodson CBC AUTO DIFFon 12-27-2021 BASO # 0.0 103/ul Normal 0.0-0.1 [facility] Comment on above: Performed By: #### C BC #### [facility] [address] [place] [address] Dr. Tasha Dodson Basophils/100 WBC (Bld) 0.2 % Normal 0.2-2.0 [facility] Comment on above: Performed By: #### C BC #### [facility] [address] [place] [address] Dr. Tasha Dodson EO # 0.3 103/ul Normal 0.0-0.7 [facility] Comment on above: Performed By: #### C BC #### [facility] [address] [place] [address] Dr. Tasha Dodson Eosinophils/100 WBC (Bld) 2.3 % Normal 0.9-7.0 [facility] Comment on above: Performed By: #### C BC #### [facility] [address] [place] [address] Dr. Tasha Dodson Erythrocyte distribution width (RBC) [Ratio] 12.4 % Normal 11.0-15.0 [facility] Comment on above: Performed By: #### C BC #### [facility] [address] [place] [address] Dr. Tasha Dodson Hematocrit (Bld) [Volume fraction] 35.4 % Critically low 36.0-48.0 [facility] Comment on above: Performed By: #### C BC #### [facility] [address] [place] [address] Dr. Tasha Dodson Hemoglobin (Bld) [Mass/Vol] 12.9 g/dL Normal 12.0-16.0 [facility] Comment on above: Performed By: #### C BC #### [facility] [address] [place] [address] Dr. Tasha Dodson IG # 0.06 10e3/ul Critically high 0.00-0.03 [facility] Comment on above: Performed By: #### C BC #### [facility] [address] [place] [address] Dr. Tasha Dodson IG % 0.5 % Normal 0.0-0.5 [facility] Comment on above: Performed By: #### C BC #### [facility] [address] [address] [address] Tasha Dodson LYMPH # 2.0 103/ul Normal 1.2-3.8 [facility] Comment on above: Performed By: #### C BC #### [facility] [address] [address] [address] Tasha Dodson Lymphocytes/100 WBC (Bld) 15.7 % Critically low 20.5-60.0 [facility] Comment on above: Performed By: #### C BC #### [facility] [address] [place] [address] Dr. Tasha Dodson MANUAL DIFF REQ NO Normal [facility] Comment on above: Performed By: #### C BC #### [facility] [address] [place] [address] Dr. Tasha Dodson MCH (RBC) [Entitic mass] 31.0 pg Normal 26.7-34.0 [facility] Comment on above: Performed By: #### C BC #### [facility] [address] [place] [address] Dr. Tasha Dodson MCHC (RBC) [Mass/Vol] 36.4 g/dL Critically high 29.9-35.2 [facility] Comment on above: Performed By: #### C BC #### [facility] [address] [place] [address] Dr. Tasha Dodson MCV (RBC) [Entitic vol] 85.1 fL Normal 81.0-99.0 [facility] Comment on above: Performed By: #### C BC #### [facility] [address] [place] [address] Dr. Tasha Dodson MONO # 1.1 103/ul Critically high 0.3-0.8 [facility] Comment on above: Performed By: #### C BC #### [facility] [address] [place] [address] Dr. Tasha Dodson Monocytes/100 WBC (Bld) 8.3 % Normal 1.7-12.0 [facility] Comment on above: Performed By: #### C BC #### [facility] [address] [address] [address] Tasha Dodson NEUT # 9.5 103/ul Critically high 1.4-6.5 [facility] Comment on above: Performed By: #### C BC #### [facility] [id number] Tasha Dodson Neutrophils/100 WBC (Bld) 73.0 % Normal 43.0-75.0 [facility] Comment on above: Performed By: #### C BC #### [facility] [address] [address] [address] Tasha Dodson Platelet mean volume (Bld) [Entitic vol] 8.3 fL Critically low 9.5-13.5 [facility] Comment on above: Performed By: #### C BC #### [facility] [address] [address] [address] Tasha Dodson PLT 408 103/ul Normal 150-450 [facility] Comment on above: Performed By: #### C BC #### [facility] [address] [address] [address] Tasha Dodson RBC 4.16 106/ul Critically low 4.20-5.40 [facility] Comment on above: Performed By: #### C BC #### [facility] [id number] Tasha Dodson WBC 13.0 103/ul Critically high 4.0-11.0 [facility] Comment on above: Performed By: #### C BC #### [facility] [id number] Tasha Dodson CULTURE SPUTUMon 12-27-2021 CULTURE SPUTUM Culture Observations : NORMAL RESPIRATORY AMADOU. Normal [facility] Comment on above: Performed By: #### C BC #### [facility] [address] [address] [address] Tasha Dodson PROF 14(COMP METB)on 022 Albumin [Mass/Vol] 3.4 g/dL Normal 3.4-5.0 [facility] Comment on above: Performed By: #### C MADM, LIPA, BNP, CMP #### [facility] [address] [place] [address] Dr. Tasha Dodson Albumin/Globulin [Mass ratio] 1.0 {ratio} Normal [facility] Comment on above: Performed By: #### C MADM, LIPA, BNP, CMP #### [facility] [address] [place] [address] Dr. Tasha Dodson ALP [Catalytic activity/Vol] 54 U/L Normal 46-116 [facility] Comment on above: Performed By: #### C MADM, LIPA, BNP, CMP #### [facility] [address] [place] [address] Dr. Tasha Dodson ALT [Catalytic activity/Vol] 20 U/L Normal 14-59 [facility] Comment on above: Performed By: #### C MADM, LIPA, BNP, CMP #### [facility] [address] [place] [address] Dr. Tasha Dodson Anion gap [Moles/Vol] 10.8 mmol/L Normal [facility] Comment on above: Performed By: #### C MADM, LIPA, BNP, CMP #### [facility] [address] [place] [address] Dr. Tasha Dodson AST [Catalytic activity/Vol] 19 U/L Normal 15-37 [facility] Comment on above: Performed By: #### C MADM, LIPA, BNP, CMP #### [facility] [address] [place] [address] Dr. Tasha Dodson Bilirubin [Mass/Vol] 0.5 mg/dL Normal 0.2-1.0 [facility] Comment on above: Performed By: #### C MADM, LIPA, BNP, CMP #### [facility] [address] [place] [address] Dr. Tasha Dodson Calcium [Mass/Vol] 8.3 mg/dL Critically low 8.5-10.1 [facility] Comment on above: Performed By: #### C MADM, LIPA, BNP, CMP #### [facility] [address] [address] [address] Tasha Dodson Chloride [Moles/Vol] 89 mmol/L Critically low 98-107 [facility] Comment on above: Performed By: #### C MADM, LIPA, BNP, CMP #### [facility] [address] [place] [address] Dr. Tasha Dodson CO2 [Moles/Vol] 27.0 mmol/L Normal 21.0-32.0 [facility] Comment on above: Performed By: #### C MADM, LIPA, BNP, CMP #### [facility] [address] [address] [address] Tasha Dodson Creatinine [Mass/Vol] 0.69 mg/dL Normal 0.55-1.02 [facility] Comment on above: Performed By: #### C MADM, LIPA, BNP, CMP #### [facility] [address] [place] [address] Dr. Tasha Dodson EGFR-AF MACEDONIAN >60 Normal >=60 [facility] Comment on above: Performed By: #### C MADM, LIPA, BNP, CMP #### [facility] [address] [place] [address] Dr. Tasha Dodson EGFR-NON AF MACEDONIAN >60 Normal >=60 [facility] Comment on above: Performed By: #### C MADM, LIPA, BNP, CMP #### [facility] [address] [address] [address] Tasha Dodson Globulin (S) [Mass/Vol] 3.3 g/dL Normal [facility] Comment on above: Performed By: #### C MADM, LIPA, BNP, CMP #### [facility] [address] [place] [address] Dr. Tasha Dodson Glucose [Mass/Vol] 115 mg/dL Critically high 74-106 [facility] Comment on above: Performed By: #### C MADM, LIPA, BNP, CMP #### [facility] [address] [place] [address] Dr. Tasha Dodson Potassium [Moles/Vol] 2.7 mmol/L Critically low 3.5-5.1 [facility] Comment on above: Result Comment: Test Repeated. Critical Value Verified Performed By: #### C MADM, LIPA, BNP, CMP #### [facility] [address] [address] [address] Tasha Dodson Protein [Mass/Vol] 6.7 g/dL Normal 6.4-8.2 [facility] Comment on above: Performed By: #### C MADM, LIPA, BNP, CMP #### [facility] [address] [address] [address] Tasha Dodson Sodium [Moles/Vol] 123 mmol/L Critically low 136-145 [facility] Comment on above: Result Comment: Test Repeated. Critical Value Verified Performed By: #### C MADM, LIPA, BNP, CMP #### [facility] [address] [address] [address] Tasha Dodson Urea nitrogen [Mass/Vol] 6.0 mg/dL Critically low 7.0-18.0 [facility] Comment on above: Performed By: #### C MADM, LIPA, BNP, CMP #### [facility] [address] [place] [address] Dr. Tasha Dodson Urea nitrogen/Creatinine [Mass ratio] 8.7 mg/mg Normal [facility] Comment on above: Performed By: #### C MADM, LIPA, BNP, CMP #### [facility] [address] [address] [address] Tasha Dodson SPUTUM GRAM STAINon 12-28-19 COMMENTS Normal [facility] Comment on above: Performed By: #### T SH, BMP #### [facility] [address] [address] [address] Tasha Dodson DIPHTHEROIDS Normal [facility] Comment on above: Performed By: #### T SH, BMP #### [facility] [address] [place] [address] Dr. Tasha Dodson EPITHELIALS <25 Normal [facility] Comment on above: Performed By: #### T SH, BMP #### [facility] [address] [address] [address] Tasha Dodson FUNGAL ELEMENTS Normal [facility] Comment on above: Performed By: #### T SH, BMP #### [facility] [address] [address] [address] Tasha Dodson GRAM NEG BACILLI Normal [facility] Comment on above: Performed By: #### T SH, BMP #### [facility] [address] [address] [address] Tasha Dodson GRAM NEG DIPPLOCOCCI Normal [facility] Comment on above: Performed By: #### T SH, BMP #### [facility] [address] [address] [address] Tasha Dodson GRAM POS BACILLI Normal [facility] Comment on above: Performed By: #### T SH, BMP #### [facility] [address] [place] [address] Dr. Tasha Dodson GRAM POSITIVE COCCI MODERATE Normal [facility] Comment on above: Performed By: #### T SH, BMP #### [facility] [address] [place] [address] Dr. Tasha Dodson WBC (Bld) [#/Vol] 10*3/uL Normal [facility] Comment on above: Performed By: #### T SH, BMP #### [facility] [address] [place] [address] Dr. Tasha Dodson BNPon 12-26-2021 Natriuretic peptide B (Bld) [Mass/Vol] 148.0 pg/mL Normal <=1,800.0 [facility] Comment on above: Performed By: #### C MADM, LIPA, BNP, CMP #### [facility] [address] [place] [address] Dr. Tasha Dodson CARDIAC ANGELO ADMITon 022 CK [Catalytic activity/Vol] 139 U/L Normal 26-192 [facility] Comment on above: Performed By: #### C MADM, LIPA, BNP, CMP #### [facility] [address] [place] [address] Dr. Tasha Dodson CK.MB [Mass/Vol] 2.43 ng/mL Normal <=3.60 [facility] Comment on above: Performed By: #### C MADM, LIPA, BNP, CMP #### [facility] [address] [address] [address] Tasha Dodson HSTROP 12.2 pg/mL Normal 4.0-51.3 [facility] Comment on above: Result Comment: CUT- OFF POINTS HAVE BEEN ESTABLISHED BASED ON THE FOURTH UNIVERSAL DEFINITIONS OF MYOCARDIAL INFARCTION. THE UPPER REFERENCE LIMIT (URL) OF TROPONIN, DEFINED THE 99TH PERCENTILE OF cTnI DISTRIBUTION IN A REFERENCE POPULATION, HAS BEEN CONFIRMED THE DECISION THRESHOLD FOR NE DIAGNOSIS. Performed By: #### C MADM, LIPA, BNP, CMP #### [facility] [address] [place] [address] Dr. Tasha Dodson ELIZABETH 110 ng/mL Critically high 9-82 [facility] Comment on above: Performed By: #### C MADM, LIPA, BNP, CMP #### [facility] [address] [place] [address] Dr. Tasha Dodson CBC AUTO DIFFon 12-26-2021 BASO # 0.0 103/ul Normal 0.0-0.1 [facility] Comment on above: Performed By: #### C MADM, LIPA, BNP, CMP #### [facility] [address] [place] [address] Dr. Tasha Dodson Basophils/100 WBC (Bld) 0.3 % Normal 0.2-2.0 [facility] Comment on above: Performed By: #### C MADM, LIPA, BNP, CMP #### [facility] [address] [place] [address] Dr. Tasha Dodson EO # 0.1 103/ul Normal 0.0-0.7 [facility] Comment on above: Performed By: #### C MADM, LIPA, BNP, CMP #### [facility] [address] [place] [address] Dr. Tasha Dodson Eosinophils/100 WBC (Bld) 0.7 % Critically low 0.9-7.0 [facility] Comment on above: Performed By: #### C MADM, LIPA, BNP, CMP #### [facility] [address] [place] [address] Dr. Tasha Dodson Erythrocyte distribution width (RBC) [Ratio] 12.4 % Normal 11.0-15.0 [facility] Comment on above: Performed By: #### C MADM, LIPA, BNP, CMP #### [facility] [address] [place] [address] Dr. Tasha Dodson Hematocrit (Bld) [Volume fraction] 38.9 % Normal 36.0-48.0 [facility] Comment on above: Performed By: #### C MADM, LIPA, BNP, CMP #### [facility] [address] [place] [address] Dr. Tasha Dodson Hemoglobin (Bld) [Mass/Vol] 14.4 g/dL Normal 12.0-16.0 [facility] Comment on above: Performed By: #### C MADM, LIPA, BNP, CMP #### [facility] [address] [place] [address] Dr. Tasha Dodson IG # 0.08 10e3/ul Critically high 0.00-0.03 [facility] Comment on above: Performed By: #### C MADM, LIPA, BNP, CMP #### [facility] [address] [place] [address] Dr. Tasha Dodson IG % 0.5 % Normal 0.0-0.5 [facility] Comment on above: Performed By: #### C MADM, LIPA, BNP, CMP #### [facility] [address] [place] [address] Dr. Tasha Dodson LYMPH # 2.2 103/ul Normal 1.2-3.8 [facility] Comment on above: Performed By: #### C MADM, LIPA, BNP, CMP #### [facility] [address] [place] [address] Dr. Tasha Dodson Lymphocytes/100 WBC (Bld) 15.0 % Critically low 20.5-60.0 [facility] Comment on above: Performed By: #### C MADM, LIPA, BNP, CMP #### [facility] [address] [place] [address] Dr. Tasha Dodson MANUAL DIFF REQ NO Normal [facility] Comment on above: Performed By: #### C MADM, LIPA, BNP, CMP #### [facility] [address] [place] [address] Dr. Tasha Dodson MCH (RBC) [Entitic mass] 31.6 pg Normal 26.7-34.0 [facility] Comment on above: Performed By: #### C MADM, LIPA, BNP, CMP #### [facility] [address] [place] [address] Dr. Tasha Dodson MCHC (RBC) [Mass/Vol] 37.0 g/dL Critically high 29.9-35.2 [facility] Comment on above: Performed By: #### C MADM, LIPA, BNP, CMP #### [facility] [address] [place] [address] Dr. Tasha Dodson MCV (RBC) [Entitic vol] 85.3 fL Normal 81.0-99.0 [facility] Comment on above: Performed By: #### C MADM, LIPA, BNP, CMP #### [facility] [address] [place] [address] Dr. Tasha Dodson MONO # 1.0 103/ul Critically high 0.3-0.8 [facility] Comment on above: Performed By: #### C MADM, LIPA, BNP, CMP #### [facility] [address] [place] [address] Dr. Tasha Dodson Monocytes/100 WBC (Bld) 6.8 % Normal 1.7-12.0 [facility] Comment on above: Performed By: #### C MADM, LIPA, BNP, CMP #### [facility] [address] [place] [address] Dr. Tasha Dodson NEUT # 11.5 103/ul Critically high 1.4-6.5 [facility] Comment on above: Performed By: #### C MADM, LIPA, BNP, CMP #### [facility] [address] [place] [address] Dr. Tasha Dodson Neutrophils/100 WBC (Bld) 76.7 % Critically high 43.0-75.0 [facility] Comment on above: Performed By: #### C MADM, LIPA, BNP, CMP #### [facility] [address] [place] [address] Dr. Tasha Dodson Platelet mean volume (Bld) [Entitic vol] 8.6 fL Critically low 9.5-13.5 [facility] Comment on above: Performed By: #### C MADM, LIPA, BNP, CMP #### [facility] [address] [place] [address] Dr. Tasha Dodson PLT 491 103/ul Critically high 150-450 [facility] Comment on above: Performed By: #### C MADM, LIPA, BNP, CMP #### [facility] [address] [place] [address] Dr. Tasha Dodson RBC 4.56 106/ul Normal 4.20-5.40 [facility] Comment on above: Performed By: #### C MADM, LIPA, BNP, CMP #### [facility] [address] [place] [address] Dr. Tasha Dodson WBC 15.0 103/ul Critically high 4.0-11.[address] [facility] Comment on above: Performed By: #### C MADM, LIPA, BNP, CMP #### [facility] [address] [place] [address] Dr. Tasha Dodson CULTURE URINEon 12-26-2021 CULTURE URINE Culture Observations : LIGHT GROWTH OF MIXED GENITAL AMADOU. NO POTENTIAL PATHOGENS SEEN. Normal [facility] Comment on above: Performed By: #### C BC #### [facility] [address] [place] [address] Dr. Tasha Dodson [facility]on SARS-CoV-2 (COVID-19) RNA CARITO+probe Ql (Unsp spec) Not detected Normal NOT DETECTED [facility] Comment on above: Result Comment: When [...] for this test is supported by the [employer] Supervisor of Health and Human Service's declaration that [...] #### C MADM, LIPA, BNP, CMP #### [facility] [address] [place] [address] Dr. Tasha Dodson ER URINE PROFILEon 2 Bilirubin Ql (U) Negative Normal NEGATIVE [facility] Comment on above: Performed By: #### T SH, BMP #### [facility] [address] [place] [address] Dr. Tasha Dodson Clarity (U) CLEAR Normal CLEAR [facility] Comment on above: Performed By: #### T SH, BMP #### [facility] [address] [place] [address] Dr. Tasha Dodson Color (U) LT. YELLOW Normal YELLOW [facility] Comment on above: Performed By: #### T SH, BMP #### [facility] [address] [place] [address] Dr. Tasha Dodson ERUAHD A micrscopic examination will be performed if indicated. Normal [facility] Comment on above: Performed By: #### T SH, BMP #### [facility] [address] [place] [address] Dr. Tasha Dodson Glucose Ql (U) Negative Normal NEGATIVE [facility] Comment on above: Performed By: #### T SH, BMP #### [facility] [address] [place] [address] Dr. Tasha Dodson Hemoglobin Ql (U) TRACE-INTACT Abnormal NEGATIVE [facility] Comment on above: Performed By: #### T SH, BMP #### [facility] [address] [place] [address] Dr. Tasha Dodson Ketones Ql (U) TRACE Abnormal NEGATIVE [facility] Comment on above: Performed By: #### T SH, BMP #### [facility] [address] [place] [address] Dr. Tasha Dodson LEUKOCYTES Negative Normal NEGATIVE [facility] Comment on above: Performed By: #### T SH, BMP #### [facility] [address] [place] [address] Dr. Tasha Dodosn Nitrite Ql (U) Negative Normal NEGATIVE [facility] Comment on above: Performed By: #### T SH, BMP #### [facility] [address] [place] [address] Dr. Tasha Dodson pH (U) 7.0 [pH] Normal 5-9 [facility] Comment on above: Performed By: #### T SH, BMP #### [facility] [address] [place] [address] Dr. Tasha Dodson SPEC GRAVITY 1.010 Normal 1.005-<=1.0 25 [facility] Comment on above: Performed By: #### T SH, BMP #### [facility] [address] [place] [address] Dr. Tasha Dodson UA PROTEIN Negative Normal NEGATIVE/ TRACE [facility] Comment on above: Performed By: #### T SH, BMP #### [facility] [address] [place] [address] Dr. Tasha Dodson UR MICRO IND INDICATED Normal [facility] Comment on above: Performed By: #### T SH, BMP #### [facility] [address] [place] [address] Dr. Tasha Dodson Urobilinogen Qn (U) 0.2 {Juan'U}/dL Normal 0.2 - 1. 0 [facility] Comment on above: Performed By: #### T SH, BMP #### [facility] [address] [place] [address] Dr. Tasha Dodson INFLUENZA A AND B AGon 12-26 INFLUANEGH SEE BELOW Normal [facility] Comment on above: Result Comment: Nega tive for Flu A protein angiten. Infection due to Flu A cannot be ruled out. Flu A angiten in the sample may be below the detection limit of the test. Performed By: #### C BC #### [facility] [address] [place] [address] Dr. Tasha Dodson INFLUBNEGH SEE BELOW Normal [facility] Comment on above: Result Comment: Nega tive for Flu B protein antigen. Infection due to Flu B cannot be ruled out. Flu B antigen in the sample may be below the detection limit of the test. Performed By: #### C BC #### [facility] [address] [place] [address] Dr. Tasha Dodson INFLUENZA A AG Negative Normal NEGATIVE SEE COMMENT [facility] Comment on above: Performed By: #### C BC #### [facility] [address] [place] [address] Dr. Tasha Dodson INFLUENZA B AG Negative Normal NEGATIVE SEE COMMENT [facility] Comment on above: Performed By: #### C BC #### [facility] [address] [place] [address] Dr. Tasha Dodson INTERNAL CONTROLS Within Normal Limits Normal Wi thin Normal Limits [facility] Comment on above: Performed By: #### C BC #### [facility] [address] [place] [address] Dr. Tasha Dodson LACTATE/LACTIC ACIDon 2021 Lactate [Moles/Vol] 1.5 mmol/L Normal 0.4-1.9 [facility] Comment on above: Performed By: #### T SH, BMP #### [facility] [address] [place] [address] Dr. Tasha Dodson LIPASEon 12-26-2021 Lipase [Catalytic activity/Vol] 96.0 U/L Normal 73.0-393.0 [facility] Comment on above: Performed By: #### C MADM, LIPA, BNP, CMP #### [facility] [address] [place] [address] Dr. Tasha Dodson PROF 14(COMP METB)on 022 Albumin [Mass/Vol] 4.2 g/dL Normal 3.4-5.0 [facility] Comment on above: Performed By: #### C MADM, LIPA, BNP, CMP #### [facility] [address] [place] [address] Dr. Tasha Dodson Albumin/Globulin [Mass ratio] 1.1 {ratio} Normal [facility] Comment on above: Performed By: #### C MADM, LIPA, BNP, CMP #### [facility] [address] [place] [address] Dr. Tasha Dodson ALP [Catalytic activity/Vol] 68 U/L Normal 46-116 [facility] Comment on above: Performed By: #### C MADM, LIPA, BNP, CMP #### [facility] [address] [place] [address] Dr. Tasha Dodson ALT [Catalytic activity/Vol] 23 U/L Normal 14-59 [facility] Comment on above: Performed By: #### C MADM, LIPA, BNP, CMP #### [facility] [address] [place] [address] Dr. Tasha Dodson Anion gap [Moles/Vol] 12.3 mmol/L Normal [facility] Comment on above: Performed By: #### C MADM, LIPA, BNP, CMP #### [facility] [address] [place] [address] Dr. Tasha Dodson AST [Catalytic activity/Vol] 25 U/L Normal 15-37 [facility] Comment on above: Performed By: #### C MADM, LIPA, BNP, CMP #### [facility] [address] [place] [address] Dr. Tasha Dodson Bilirubin [Mass/Vol] 0.7 mg/dL Normal 0.2-1.0 [facility] Comment on above: Performed By: #### C MADM, LIPA, BNP, CMP #### [facility] [address] [place] [address] Dr. Tasha Dodson Calcium [Mass/Vol] 9.5 mg/dL Normal 8.5-10.1 [facility] Comment on above: Performed By: #### C MADM, LIPA, BNP, CMP #### [facility] [address] [address] [address] Tasha Dodson Chloride [Moles/Vol] 80 mmol/L Critically low 98-107 [facility] Comment on above: Performed By: #### C MADM, LIPA, BNP, CMP #### [facility] [address] [address] [address] Tasha Dodson CO2 [Moles/Vol] 27.1 mmol/L Normal 21.0-32.0 [facility] Comment on above: Performed By: #### C MADM, LIPA, BNP, CMP #### [facility] [address] [place] [address] Dr. Tasha Dodson Creatinine [Mass/Vol] 0.85 mg/dL Normal 0.55-1.02 [facility] Comment on above: Performed By: #### C MADM, LIPA, BNP, CMP #### [facility] [address] [place] [address] Dr. Tasha Dodson EGFR-AF MACEDONIAN >60 Normal >=60 [facility] Comment on above: Performed By: #### C MADM, LIPA, BNP, CMP #### [facility] [address] [place] [address] Dr. Tasha Dodson EGFR-NON AF MACEDONIAN >60 Normal >=60 [facility] Comment on above: Performed By: #### C MADM, LIPA, BNP, CMP #### [facility] [address] [place] [address] Dr. Tasha Dodson Globulin (S) [Mass/Vol] 3.9 g/dL Normal [facility] Comment on above: Performed By: #### C MADM, LIPA, BNP, CMP #### [facility] [address] [place] [address] Dr. Tasha Dodson Glucose [Mass/Vol] 132 mg/dL Critically high 74-106 [facility] Comment on above: Performed By: #### C MADM, LIPA, BNP, CMP #### [facility] [address] [address] [address] Tasha Dodson Potassium [Moles/Vol] 2.4 mmol/L Critically low 3.5-5.1 [facility] Comment on above: Performed By: #### C MADM, LIPA, BNP, CMP #### [facility] [address] [place] [address] Dr. Tasha Dodson Protein [Mass/Vol] 8.1 g/dL Normal 6.4-8.2 [facility] Comment on above: Performed By: #### C MADM, LIPA, BNP, CMP #### [facility] [address] [place] [address] Dr. Tasha Dodson Sodium [Moles/Vol] 116 mmol/L Critically low 136-145 [facility] Comment on above: Performed By: #### C MADM, LIPA, BNP, CMP #### [facility] [address] [place] [address] Dr. Tasha Dodson Urea nitrogen [Mass/Vol] 12.0 mg/dL Normal 7.0-18.0 [facility] Comment on above: Performed By: #### C MADM, LIPA, BNP, CMP #### [facility] [address] [place] [address] Dr. Tasha Dodson Urea nitrogen/Creatinine [Mass ratio] 14.1 mg/mg Normal [facility] Comment on above: Performed By: #### C MADM, LIPA, BNP, CMP #### [facility] [address] [place] [address] Dr. Tasha Dodson PROF CHEM 8 (BAS METB)on Anion gap [Moles/Vol] 11.4 mmol/L Normal [facility] Comment on above: Performed By: #### T SH, BMP #### [facility] [address] [place] [address] Dr. Tasha Dodson Calcium [Mass/Vol] 8.4 mg/dL Critically low 8.5-10.1 [facility] Comment on above: Performed By: #### T SH, BMP #### [facility] [address] [address] [address] Tasha Dodson Chloride [Moles/Vol] 89 mmol/L Critically low 98-107 [facility] Comment on above: Performed By: #### T SH, BMP #### [facility] [address] [address] [address] Tasha Dodson CO2 [Moles/Vol] 25.5 mmol/L Normal 21.0-32.0 [facility] Comment on above: Performed By: #### T SH, BMP #### [facility] [address] [address] [address] Tasha Dodosn Creatinine [Mass/Vol] 0.89 mg/dL Normal 0.55-1.02 [facility] Comment on above: Performed By: #### T SH, BMP #### [facility] [address] [address] [address] Tasha Dodson EGFR-AF MACEDONIAN >60 Normal >=60 [facility] Comment on above: Performed By: #### T SH, BMP #### [facility] [address] [address] [address] Tasha Dodson EGFR-NON AF MACEDONIAN 60 mL/min/1.73m2 Normal >=60 [facility] Comment on above: Performed By: #### T SH, BMP #### [facility] [address] [address] [address] Tasha Dodson Glucose [Mass/Vol] 166 mg/dL Critically high 74-106 [facility] Comment on above: Performed By: #### T SH, BMP #### [facility] [address] [address] [address] Tasha Dodson Potassium [Moles/Vol] 3.0 mmol/L Critically low 3.5-5.1 [facility] Comment on above: Performed By: #### T SH, BMP #### [facility] [address] [address] [address] Tasha Dodson Sodium [Moles/Vol] 123 mmol/L Critically low 136-145 [facility] Comment on above: Performed By: #### T JESI, BMP #### [facility] [address] [place] [address] Dr. Tasha Dodson Urea nitrogen [Mass/Vol] 9.0 mg/dL Normal 7.0-18.0 [facility] Comment on above: Performed By: #### T JESI, BMP #### [facility] [address] [place] [address] Dr. Tasha Dodson Urea nitrogen/Creatinine [Mass ratio] 10.1 mg/mg Normal [facility] Comment on above: Performed By: #### T JESI, BMP #### [facility] [address] [place] [address] Dr. Tasha Dodson PROTIMEon 12-26-2021 INR Coag (PPP) [Relative time] 0.96 {INR} Normal [facility] Comment on above: Performed By: #### T JESI, BMP #### [facility] [address] [place] [address] Dr. Tasha Dodson INR GUIDELINES SEE BELOW Normal [facility] Comment on above: Result Comment: JO RED INR: 2.0 - 3.0 CONDITIONS NOT LISTED BELOW 2.5 - 3.5 FOR PROSTHETIC HEART VALVE REPLACEMENT 2.5 - 3.5 RECURRENT THROMBOSIS Performed By: #### T JESI, BMP #### [facility] [address] [place] [address] Dr. Tasha Dodson PT Coag (PPP) [Time] 10.4 s Normal 9.0-11.6 [facility] Comment on above: Performed By: #### T JESI, BMP #### [facility] [address] [place] [address] Dr. Tasha Dodson PTTon 12-26-2021 aPTT Coag (Bld) [Time] 26.2 s Normal 22.3-36.2 [facility] Comment on above: Performed By: #### T JESI, BMP #### [facility] [address] [place] [address] Dr. Tasha Dodson SODIUM RANDOM URINEon 2021 Sodium (U) [Moles/Vol] 71 mmol/L Normal 30-90 [facility] Comment on above: Performed By: #### T SH, BMP #### [facility] [address] [place] [address] Dr. Tasha Dodson T4on 12-26-2021 T4 [Mass/Vol] 10.60 ug/dL Normal 4.80-13.90 [facility] Comment on above: Performed By: #### C BC #### [facility] [address] [place] [address] Dr. Tasha Dodson TSHon 12-26-2021 TSH 5.236 uIU/mL Critically high 0.358-3.740 [facility] Comment on above: Performed By: #### C BC #### [facility] [address] [place] [address] Dr. Tasha Dodson URINE MICROSCOPIC ONLYon BACTERIA TRACE Abnormal NONE SEEN [facility] Comment on above: Performed By: #### T SH, BMP #### [facility] [address] [place] [address] Dr. Tasha Dodson Bacteria identified Cx Nom (U) NOT INDICATED Normal [facility] Comment on above: Performed By: #### T SH, BMP #### [facility] [address] [place] [address] Dr. Tasha Dodson CAST NONE SEEN Normal NONE SEEN [facility] Comment on above: Performed By: #### T SH, BMP #### [facility] [address] [place] [address] Dr. Tasha Dodson Crystals LM Nom (Urine sed) NONE SEEN Normal NONE SEEN [facility] Comment on above: Performed By: #### T SH, BMP #### [facility] [address] [place] [address] Dr. Tasha Dodson Epithelial cells LM Ql (Urine sed) NONE SEEN Normal NONE SEEN /RARE [facility] Comment on above: Performed By: #### T SH, BMP #### [facility] [address] [place] [address] Dr. Tasha Dodson MUCOUS NONE SEEN Normal NONE SEEN [facility] Comment on above: Performed By: #### T SH, BMP #### [facility] [address] [address] [address] Tasha Dodson RBC 0-2 Normal 0-2 [facility] Comment on above: Performed By: #### T PAWAN DENNISON #### [facility] [address] [address] [address] Tasha Dodson WBC 0-2 Abnormal NONE SEEN [facility] Comment on above: Performed By: #### T PAWAN DENNISON #### [facility] [address] [address] [address] Tasha Dodson XR CHEST 1 Von [...] TING MIXON Date: 2021-12-26 11:32 Normal [facility] XR LSPINE MIN 4 VIEWSon 11-20 [...] by: JESUS BRUNO Date: 2021-11-30 22:52 Normal [facility] CBC AUTO DIFFon 11-09-2021 BASO # 0.1 103/ul Normal 0.0-0.1 [facility] Comment on above: Performed By: #### C MADM, LIPA, BNP, CMP #### [facility] [address] [place] [address] Dr. Tasha Dodson Basophils/100 WBC (Bld) 0.7 % Normal 0.2-2.0 [facility] Comment on above: Performed By: #### C MADM, LIPA, BNP, CMP #### [facility] [address] [place] [address] Dr. Tasha Dodson EO # 0.2 103/ul Normal 0.0-0.7 [facility] Comment on above: Performed By: #### C MADM, LIPA, BNP, CMP #### [facility] [address] [place] [address] Dr. Tasha Dodson Eosinophils/100 WBC (Bld) 1.8 % Normal 0.9-7.0 [facility] Comment on above: Performed By: #### C MADM, LIPA, BNP, CMP #### [facility] [address] [place] [address] Dr. Tasha Dodson Erythrocyte distribution width (RBC) [Ratio] 13.0 % Normal 11.0-15.0 [facility] Comment on above: Performed By: #### C MADM, LIPA, BNP, CMP #### [facility] [address] [place] [address] Dr. Tasha Dodson Hematocrit (Bld) [Volume fraction] 33.8 % Critically low 36.0-48.0 [facility] Comment on above: Performed By: #### C MADM, LIPA, BNP, CMP #### [facility] [address] [place] [address] Dr. Tasha Dodson Hemoglobin (Bld) [Mass/Vol] 12.5 g/dL Normal 12.0-16.0 [facility] Comment on above: Performed By: #### C MADM, LIPA, BNP, CMP #### [facility] [address] [place] [address] Dr. Tasha Dodson IG # 0.02 10e3/ul Normal 0.00-0.03 [facility] Comment on above: Performed By: #### C MADM, LIPA, BNP, CMP #### [facility] [address] [place] [address] Dr. Tasha Dodson IG % 0.2 % Normal 0.0-0.5 [facility] Comment on above: Performed By: #### C MADM, LIPA, BNP, CMP #### [facility] [address] [place] [address] Dr. Tasha Dodson LYMPH # 2.9 103/ul Normal 1.2-3.8 [facility] Comment on above: Performed By: #### C MADM, LIPA, BNP, CMP #### [facility] [address] [place] [address] Dr. Tasha Dodson Lymphocytes/100 WBC (Bld) 29.4 % Normal 20.5-60.0 [facility] Comment on above: Performed By: #### C MADM, LIPA, BNP, CMP #### [facility] [address] [place] [address] Dr. Tasha Dodson MANUAL DIFF REQ NO Normal [facility] Comment on above: Performed By: #### C MADM, LIPA, BNP, CMP #### [facility] [address] [place] [address] Dr. Tasha Dodson MCH (RBC) [Entitic mass] 34.1 pg Critically high 26.7-34.0 [facility] Comment on above: Performed By: #### C MADM, LIPA, BNP, CMP #### [facility] [address] [place] [address] Dr. Tasha Dodson MCHC (RBC) [Mass/Vol] 37.0 g/dL Critically high 29.9-35.2 [facility] Comment on above: Performed By: #### C MADM, LIPA, BNP, CMP #### [facility] [address] [place] [address] Dr. Tasha Dodson MCV (RBC) [Entitic vol] 92.1 fL Normal 81.0-99.0 [facility] Comment on above: Performed By: #### C MADM, LIPA, BNP, CMP #### [facility] [address] [place] [address] Dr. Tasha Dodson MONO # 0.8 103/ul Normal 0.3-0.8 [facility] Comment on above: Performed By: #### C MADM, LIPA, BNP, CMP #### [facility] [address] [place] [address] Dr. Tasha Dodson Monocytes/100 WBC (Bld) 8.2 % Normal 1.7-12.0 [facility] Comment on above: Performed By: #### C MADM, LIPA, BNP, CMP #### [facility] [address] [place] [address] Dr. Tasha Dodson NEUT # 5.9 103/ul Normal 1.4-6.5 [facility] Comment on above: Performed By: #### C MADM, LIPA, BNP, CMP #### [facility] [address] [place] [address] Dr. Tasha Dodson Neutrophils/100 WBC (Bld) 59.7 % Normal 43.0-75.0 [facility] Comment on above: Performed By: #### C MADM, LIPA, BNP, CMP #### [facility] [address] [place] [address] Dr. Tasha Dodson Platelet mean volume (Bld) [Entitic vol] 8.9 fL Critically low 9.5-13.5 [facility] Comment on above: Performed By: #### C MADM, LIPA, BNP, CMP #### [facility] [address] [place] [address] Dr. Tasha Dodson PLT 370 103/ul Normal 150-450 [facility] Comment on above: Performed By: #### C MADM, LIPA, BNP, CMP #### [facility] [address] [place] [address] Dr. Tasha Dodson RBC 3.67 106/ul Critically low 4.20-5.40 [facility] Comment on above: Performed By: #### C MADM, LIPA, BNP, CMP #### [facility] [address] [place] [address] Dr. Tasha Dodson WBC 9.9 103/ul Normal 4.0-11.0 [facility] Comment on above: Performed By: #### C MADM, LIPA, BNP, CMP #### [facility] [address] [place] [address] Dr. Tasha Dodson FREE T4on 11-09-2021 Free T4 [Mass/Vol] 1.48 ng/dL Critically high 0.76-1.46 [facility] Comment on above: Performed By: #### F T4 #### [facility] [address] [place] [address] Dr. Tasha Dodson PROF CHEM 8 (BAS METB)on Anion gap [Moles/Vol] 11.1 mmol/L Normal [facility] Comment on above: Performed By: #### T SH, BMP #### [facility] [address] [place] [address] Dr. Tasha Dodson Calcium [Mass/Vol] 9.3 mg/dL Normal 8.5-10.1 [facility] Comment on above: Performed By: #### T SH, BMP #### [facility] [address] [place] [address] Dr. Tasha Dodson Chloride [Moles/Vol] 92 mmol/L Critically low 98-107 [facility] Comment on above: Performed By: #### T SH, BMP #### [facility] [address] [place] [address] Dr. Tasha Dodson CO2 [Moles/Vol] 29.2 mmol/L Normal 21.0-32.0 [facility] Comment on above: Performed By: #### T SH, BMP #### [facility] [address] [place] [address] Dr. Tasha Dodson Creatinine [Mass/Vol] 0.68 mg/dL Normal 0.55-1.02 [facility] Comment on above: Performed By: #### T SH, BMP #### [facility] [address] [place] [address] Dr. Tasha Dodson EGFR-AF MACEDONIAN >60 Normal >=60 [facility] Comment on above: Performed By: #### T SH, BMP #### [facility] [address] [address] [address] Tasha Dodson EGFR-NON AF MACEDONIAN >60 Normal >=60 [facility] Comment on above: Performed By: #### T SH, BMP #### [facility] [address] [address] [address] Tasha Dodson Glucose [Mass/Vol] 109 mg/dL Critically high 74-106 [facility] Comment on above: Performed By: #### T SH, BMP #### [facility] [address] [address] [address] Tasha Dodson Potassium [Moles/Vol] 3.3 mmol/L Critically low 3.5-5.1 [facility] Comment on above: Performed By: #### T SH, BMP #### [facility] [address] [place] [address] Dr. Tasha Dodson Sodium [Moles/Vol] 129 mmol/L Critically low 136-145 [facility] Comment on above: Performed By: #### T SH, BMP #### [facility] [address] [address] [address] Tasha Dodson Urea nitrogen [Mass/Vol] 9.0 mg/dL Normal 7.0-18.0 [facility] Comment on above: Performed By: #### T SH, BMP #### [facility] [address] [place] [address] Dr. Tasha Dodson Urea nitrogen/Creatinine [Mass ratio] 13.2 mg/mg Normal [facility] Comment on above: Performed By: #### T SH, BMP #### [facility] [address] [address] [address] Tasha Dodson TSHon 11-09-2021 TSH 1.193 uIU/mL Normal 0.358-3.740 [facility] Comment on above: Performed By: #### T SH, BMP #### [facility] [address] [place] [address] Dr. Tasha Dodson LIPID PROFILEon 08-06-2021 CHOL-HDL RATIO NORM SEE BELOW Normal [facility] Comment on above: Result Comment: 3.3 - 4.4 LOW RISK 4.4 - 7.1 AVERAGE RISK 7.1 - 11.0 MODERATE RISK >11.0 HIGH RISK Performed By: #### C MADM, LIPA, BNP, CMP #### [facility] [address] [address] [address] Tasha Dodosn Cholesterol [Mass/Vol] 198 mg/dL Normal <=200 [facility] Comment on above: Performed By: #### C MADM, LIPA, BNP, CMP #### [facility] [address] [address] [address] Tasha Dodson Cholesterol in HDL [Mass/Vol] 77 mg/dL Critically high 40-60 [facility] Comment on above: Performed By: #### C MADM, LIPA, BNP, CMP #### [facility] [address] [address] [address] Tasha Dodson Cholesterol in LDL [Mass/Vol] 106.0 mg/dL Normal [facility] Comment on above: Performed By: #### C MADM, LIPA, BNP, CMP #### [facility] [address] [address] [address] Tasha Dodson Cholesterol.total/Shahana sterol in HDL [Mass ratio] 2.6 {ratio} Normal [facility] Comment on above: Performed By: #### C MADM, LIPA, BNP, CMP #### [facility] [address] [address] [address] Tasha Dodson HDL NORMAL > or = 60 mg/dl - LO W CARDIOVASCULAR RISK <40 mg/dl - HIGH CARDIOVASCULAR RISK Normal [facility] Comment on above: Performed By: #### C MADM, LIPA, BNP, CMP #### [facility] [address] [address] [address] Tasha Dodson LDL CALC NORMAL SEE BELOW Normal [facility] Comment on above: Result Comment: <100 mg/dl OPTIMAL 100 - 129 mg/dl NEAR OR ABOVE OPTIMAL 130 - 159 mg/dl BORDERLINE HIGH 160 - 189 mg/dl HIGH >190 mg/dl VERY HIGH Performed By: #### C MADM, LIPA, BNP, CMP #### [facility] [address] [address] [address] Tasha Dodson Triglyceride [Mass/Vol] 75 mg/dL Normal <=150 T [facility] Comment on above: Performed By: #### C MADM, LIPA, BNP, CMP #### [facility] [address] [address] [address] Tasha Dodson VLDL CALC 15.0 mg/dL Normal [facility] Comment on above: Performed By: #### C MADM, LIPA, BNP, CMP #### [facility] [address] [address] [address] Tasha Dodson LIVER PROFILEon 08-06-2021 Albumin [Mass/Vol] 3.7 g/dL Normal 3.4-5.0 [facility] Comment on above: Performed By: #### C MADM, LIPA, BNP, CMP #### [facility] [address] [address] [address] Tasha Dodson Albumin/Globulin [Mass ratio] 1.0 {ratio} Normal [facility] Comment on above: Performed By: #### C MADM, LIPA, BNP, CMP #### [facility] [address] [address] [address] Tasha Dodson ALP [Catalytic activity/Vol] 62 U/L Normal 46-116 [facility] Comment on above: Performed By: #### C MADM, LIPA, BNP, CMP #### [facility] [address] [address] [address] Tasha Dodson ALT [Catalytic activity/Vol] 26 U/L Normal 14-59 [facility] Comment on above: Performed By: #### C MADM, LIPA, BNP, CMP #### [facility] [address] [address] [address] Tasha Dodson AST [Catalytic activity/Vol] 24 U/L Normal 15-37 [facility] Comment on above: Performed By: #### C MADM, LIPA, BNP, CMP #### [facility] [address] [address] [address] Tasha Dodson BILI, CONJUGATED 0.1 mg/dL Normal 0.0-0.2 [facility] Comment on above: Performed By: #### C MADM, LIPA, BNP, CMP #### [facility] [address] [place] [address] Dr. Tasha Dodson Bilirubin [Mass/Vol] 0.5 mg/dL Normal 0.2-1.0 [facility] Comment on above: Performed By: #### C MADM, LIPA, BNP, CMP #### [facility] [address] [place] [address] Dr. Tasha Dodson Globulin (S) [Mass/Vol] 3.8 g/dL Normal [facility] Comment on above: Performed By: #### C MADM, LIPA, BNP, CMP #### [facility] [address] [place] [address] Dr. Tasha Dodson Protein [Mass/Vol] 7.5 g/dL Normal 6.4-8.2 [facility] Comment on above: Performed By: #### C MADM, LIPA, BNP, CMP #### [facility] [address] [place] [address] Dr. Tasha Dodson FREE T4on 07-28-2021 Free T4 [Mass/Vol] 1.32 ng/dL Normal 0.76-1.46 [facility] Comment on above: Performed By: #### T SH, BMP #### [facility] [address] [place] [address] Dr. Tasha Dodson PROF CHEM 8 (BAS METB)on Anion gap [Moles/Vol] 11.6 mmol/L Normal [facility] Comment on above: Performed By: #### B MP, TSH #### [facility] [address] [place] [address] Dr. Tasha Dodson Calcium [Mass/Vol] 9.4 mg/dL Normal 8.5-10.1 [facility] Comment on above: Performed By: #### B MP, TSH #### [facility] [address] [place] [address] Dr. Tasha Dodson Chloride [Moles/Vol] 93 mmol/L Critically low 98-107 [facility] Comment on above: Performed By: #### B MP, TSH #### [facility] [address] [address] [address] Tasha Dodson CO2 [Moles/Vol] 29.8 mmol/L Normal 21.0-32.0 [facility] Comment on above: Performed By: #### B MP, TSH #### [facility] [address] [address] [address] Tasha Dodson Creatinine [Mass/Vol] 0.74 mg/dL Normal 0.55-1.02 [facility] Comment on above: Performed By: #### B MP, TSH #### [facility] [address] [place] [address] Dr. Tasha Dodson EGFR-AF MACEDONIAN >60 Normal >=60 [facility] Comment on above: Performed By: #### B MP, TSH #### [facility] [address] [place] [address] Dr. Tasha Dodson EGFR-NON AF MACEDONIAN >60 Normal >=60 [facility] Comment on above: Performed By: #### B MP, TSH #### [facility] [address] [address] [address] Tasha Dodson Glucose [Mass/Vol] 114 mg/dL Critically high 74-106 [facility] Comment on above: Performed By: #### B MP, TSH #### [facility] [address] [address] [address] Tasha Dodson Potassium [Moles/Vol] 3.4 mmol/L Critically low 3.5-5.1 [facility] Comment on above: Performed By: #### B MP, TSH #### [facility] [address] [address] [address] Tasha Dodson Sodium [Moles/Vol] 131 mmol/L Critically low 136-145 Th [facility] Comment on above: Performed By: #### B MP, TSH #### [facility] [address] [address] [address] Tasha Dodson Urea nitrogen [Mass/Vol] 12.0 mg/dL Normal 7.0-18.0 [facility] Comment on above: Performed By: #### B MP, TSH #### [facility] [address] [address] [address] Tasha Dodson Urea nitrogen/Creatinine [Mass ratio] 16.2 mg/mg Normal [facility] Comment on above: Performed By: #### B MP, TSH #### [facility] [address] [address] [address] Tasha Dodson TSHon 07-28-2021 TSH 1.790 uIU/mL Normal 0.358-3.740 [facility] Comment on above: Performed By: #### B MP, TSH #### [facility] [address] [place] [address] Dr. Tasha Dodson TSH RANGE SEE BELOW Normal [facility] Comment on above: Result Comment: <0.3 4 UIU/ml HYPERTHYROID 0.34-5.60 UIU/ml EUTHYROID >5.60 UIU/ml HYPOTHYROID Performed By: #### B MP, TSH #### [facility] [address] [address] [address] Tasha Dodson CBC Auto Differentialon 10-0 Basophils (Bld) [#/Vol] 0.1 10*3/uL 0 - 0.2 K/uL [place] Basophils/100 WBC (Bld) 1.1 % [place] Eosinophils (Bld) [#/Vol] 0.2 10*3/uL 0 - 0.7 K/uL [place] Eosinophils/100 WBC (Bld) 1.4 % [place] Erythrocyte distribution width (RBC) [Ratio] 14.4 % 11.5 - 14.5 % [place] Hematocrit (Bld) [Volume fraction] 33.6 % Low 37 - 47 % [place] Hemoglobin (Bld) [Mass/Vol] 11.1 g/dL Low 12 - 16 g/dL [place] Interpretation and review of laboratory results Abnormal [place] Lymphocytes (Bld) [#/Vol] 2.3 10*3/uL 1 - 4.8 K/uL [place] Lymphocytes/100 WBC (Bld) 18.0 % [place] MCH (RBC) [Entitic mass] 29.5 pg 27 - 31.3 pg [place] MCHC (RBC) [Mass/Vol] 33.0 % 33 - 37 % [place] MCV (RBC) [Entitic vol] 89.5 fL 82 - 100 fL [place] Monocytes (Bld) [#/Vol] 0.9 10*3/uL High 0.2 - 0.8 K/uL [place] Monocytes/100 WBC (Bld) 6.9 % [place] Neutrophils Absolute 9.1 K/uL High 1.4 - 6 .5 K/uL [place] Neutrophils/100 WBC (Bld) 72.6 % [place] Platelets (Bld) [#/Vol] 548 10*3/uL High 130 - 400 K/uL [place] RBC (Bld) [#/Vol] 3.75 10*6/uL Low [place] WBC (Bld) [#/Vol] 12.5 10*3/uL High 4.8 - 10.8 K/uL [place] CBC With Platelet and Differ entialon 11-20-2018 Basophils (Bld) [#/Vol] 0.1 10*3/uL Normal 0.0-0.2 [facility] Comment on above: Performed By: #### E SR #### [facility] [address] [facility] [address] Basophils/100 WBC (Bld) 1.1 % Normal [facility] Comment on above: Performed By: #### E SR #### [facility] [address] [facility] [address] Eosinophils (Bld) [#/Vol] 0.2 10*3/uL Normal 0.0-0.7 [facility] Comment on above: Performed By: #### E SR #### [facility] [address] [place] [address] Eosinophils/100 WBC (Bld) 1.4 % Normal [facility] Comment on above: Performed By: #### E SR #### [facility] [address] [place] [address] Erythrocyte distribution width (RBC) [Ratio] 14.4 % Normal 11.5-14.5 [facility] Comment on above: Performed By: #### E SR #### [facility] [address] [place] [address] Hematocrit (Bld) [Volume fraction] 33.6 % Low 37.0-47.0 [facility] Comment on above: Performed By: #### E SR #### [facility] [address] [place] [address] Hemoglobin (Bld) [Mass/Vol] 11.1 g/dL Low 12.0-16.0 [facility] Comment on above: Performed By: #### E SR #### [facility] [address] [place] [address] Lymphocytes (Bld) [#/Vol] 2.3 10*3/uL Normal 1.0-4.8 [facility] Comment on above: Performed By: #### E SR #### [facility] [address] [place] [place] [address] Lymphocytes/100 WBC (Bld) 18.0 % Normal [facility] Comment on above: Performed By: #### E SR #### [facility] [address] [place] [address] MCH (RBC) [Entitic mass] 29.5 pg Normal 27.0-31.3 [facility] Comment on above: Performed By: #### E SR #### [facility] [address] [place] [address] MCHC (RBC) [Mass/Vol] 33.0 % Normal 33.0-37.0 [facility] Comment on above: Performed By: #### E SR #### [facility] [address] [place] [address] MCV (RBC) [Entitic vol] 89.5 fL Normal 82.0-100.0 [facility] Comment on above: Performed By: #### E SR #### [facility] [address] [place] [address] Monocytes (Bld) [#/Vol] 0.9 10*3/uL Critically high 0.2-0. 8 [facility] Comment on above: Performed By: #### E SR #### [facility] [address] [place] [address] Monocytes/100 WBC (Bld) 6.9 % Normal [facility] Comment on above: Performed By: #### E SR #### [facility] [address] [place] [address] Neutrophils (Bld) [#/Vol] 9.1 10*3/uL Critically high 1.4-6.5 [facility] Comment on above: Performed By: #### E SR #### [facility] [address] [place] [address] Neutrophils/100 WBC (Bld) 72.6 % Normal [facility] Comment on above: Performed By: #### E SR #### [facility] [address] [place] [address] Platelets (Bld) [#/Vol] 548 10*3/uL Critically high 130-40 0 [facility] Comment on above: Performed By: #### E SR #### [facility] [address] [place] [address] RBC (Bld) [#/Vol] 3.75 10*6/uL Low 4.20-5.40 [facility] Comment on above: Performed By: #### E SR #### [facility] [address] [place] [address] WBC (Bld) [#/Vol] 12.5 10*3/uL Critically high 4.8-10.8 [facility] Comment on above: Performed By: #### E SR #### [facility] [address] [place] [address] EKG 12 Leadon 11-20-2018 Atrial Rate 79 BPM [place] P [place] 58 degrees [place] P-R Interval 176 ms [place] Q-T Interval 404 ms [facility], [place] QRS Duration 130 ms [place] QTc Calculation (Bazett) 463 ms [place] R [place] -11 degrees [facility], [place] T [place] 5 degrees [place] Urea nitrogen [Mass/Vol] Normal sinus rhythm Right bundle branch block Moderate voltage criteria for LVH, may be normal variant Abnormal ECG When compared with ECG of 13-NOV-2018 08:33, No significant change was found Confirmed by Анна Zamarripa ([id number]) on 11/20/2018 9:39:56 AM [place] Ventricular Rate 79 BPM [place] Joseph, Chpo Incoming Results From [place] - 11/20/2018 9:40 AM EDT Normal sinus rhythm Right bundle branch block Moderate voltage criteria for LVH, may be normal variant Abnormal ECG When compared with ECG of 13-NOV-2018 08:33, No significant change was found Confirmed by Анна Zamarripa ([id number]) on 11/20/2018 9:39:56 AM [place] CBC Auto Differentialon 10-23 Neutrophils Absolute 6.1 K/uL 1.4 - 6 .5 K/uL [place] CBC With Platelet and Differ entialon 11-19-2018 Basophils (Bld) [#/Vol] 0.2 10*3/uL Normal 0.0-0.2 [place] Comment on above: Performed By: #### C MP #### [facility] [address] [place] [address] Basophils/100 WBC (Bld) 1.5 % Normal [place] Comment on above: Performed By: #### C MP #### [facility] [address] [place] [address] Eosinophils (Bld) [#/Vol] 0.3 10*3/uL Normal 0.0-0.7 [place] Comment on above: Performed By: #### C MP #### [facility] [address] [place] [address] Eosinophils/100 WBC (Bld) 2.5 % Normal [place] Comment on above: Performed By: #### C MP #### [facility] [address] [place] [address] Erythrocyte distribution width (RBC) [Ratio] 14.1 % Normal 11.5-14.5 [place] Comment on above: Performed By: #### C MP #### [facility] [address] [place] [address] Hematocrit (Bld) [Volume fraction] 29.3 % Low 37.0-47.0 [place] Comment on above: Performed By: #### C MP #### [facility] [address] [place] [address] Hemoglobin (Bld) [Mass/Vol] 10.1 g/dL Low 12.0-16.0 [place] Comment on above: Performed By: #### C MP #### [facility] [address] [place] [address] Lymphocytes (Bld) [#/Vol] 2.8 10*3/uL Normal 1.0-4.8 [place] Comment on above: Performed By: #### C MP #### [facility] [address] [place] [address] Lymphocytes/100 WBC (Bld) 27.3 % Normal [place] Comment on above: Performed By: #### C MP #### [facility] [address] [place] [address] MCH (RBC) [Entitic mass] 30.7 pg Normal 27.0-31.3 [place] Comment on above: Performed By: #### C MP #### [facility] [address] [place] [address] MCHC (RBC) [Mass/Vol] 34.6 % Normal 33.0-37.0 [place] Comment on above: Performed By: #### C MP #### [facility] [address] [place] [address] MCV (RBC) [Entitic vol] 88.9 fL Normal 82.0-100.0 [place] Comment on above: Performed By: #### C MP #### [facility] [address] [address] Monocytes (Bld) [#/Vol] 0.9 10*3/uL Critically high 0.2-0. 8 [place] Comment on above: Performed By: #### C MP #### [facility] [address] [place] [address] Monocytes/100 WBC (Bld) 9.2 % Normal [place] Comment on above: Performed By: #### C MP #### [facility] [address] [place] [address] Neutrophils (Bld) [#/Vol] 6.1 10*3/uL Normal 1.4-6.5 [facility] Comment on above: Performed By: #### C MP #### [facility] [address] [place] [address] Neutrophils/100 WBC (Bld) 59.5 % Normal [place] Comment on above: Performed By: #### C MP #### [facility] [address] [place] [address] Platelets (Bld) [#/Vol] 396 10*3/uL Normal 130-400 [place] Comment on above: Performed By: #### C MP #### [facility] [address] [place] [address] RBC (Bld) [#/Vol] 3.30 10*6/uL Low 4.20-5.40 [place] Comment on above: Performed By: #### C MP #### [facility] [address] [place] [address] WBC (Bld) [#/Vol] 10.2 10*3/uL Normal 4.8-10.8 [place] Comment on above: Performed By: #### C MP #### [facility] [address] [place] [address] High Sensitivity CRPon 11-19 High Sensitivity CRP 89.2 mg/L Critically high 0.0-5.0 [facility] Comment on above: Performed By: #### E SR #### [facility] [address] [place] [address] High sensitivity CRPon 11-19 CRP High Sensitivity 89.2 mg/L High 0 - 5 mg/L [place] Interpretation and review of laboratory results Abnormal [place] Otheron 11-19-2018 Interpretation and review of laboratory results Abnormal [place] Sedimentation Rateon 019 Sedimentation Rate 55 mm Critically high 0-30 M [facility] Comment on above: Performed By: #### C MP #### [facility] [address] [place] [address] Sed Rate 55 mm High 0 - 30 mm [place] Basic Metabolic Panelon 10-22 Anion gap [Moles/Vol] 14 mmol/L Normal 9-15 [facility] Comment on above: Performed By: #### C MP #### [facility] [address] [place] [address] Calcium [Mass/Vol] 8.8 mg/dL Normal 8.5-9.9 [facility] Comment on above: Performed By: #### C MP #### [facility] [address] [place] [address] Chloride [Moles/Vol] 95 mmol/L Normal 95-107 [facility] Comment on above: Performed By: #### C MP #### [facility] [address] [place] [address] CO2 [Moles/Vol] 26 mmol/L Normal 20-31 [facility] Comment on above: Performed By: #### C MP #### [facility] [address] [place] [address] Creatinine [Mass/Vol] 0.58 mg/dL Normal 0.50-0.90 [facility] Comment on above: Performed By: #### C MP #### [facility] [address] [place] [address] GFR/1.73 sq M predicted among blacks MDRD (S/P/Bld) [Vol rate/Area] mL/min/{1.73_m2} Normal >60 [facility] Comment on above: Result Comment: >60 mL/min/1.73m2 EGFR, calc. for ages 18 and older using the MDRD formula (not corrected for weight), is valid for stable renal function. Performed By: #### C MP #### [facility] [address] [place] [address] GFR/1.73 sq M.predicted MDRD (S/P/Bld) [Vol rate/Area] mL/min/{1.73_m2} Normal >60 [facility] Comment on above: Result Comment: >60 mL/min/1.73m2 EGFR, calc. for ages 18 and older using the MDRD formula (not corrected for weight), is valid for stable renal function. Performed By: #### C MP #### [facility] [address] [place] [address] Glucose [Mass/Vol] 156 mg/dL Critically high 70-99 M [facility] Comment on above: Performed By: #### C MP #### [facility] [address] [place] [address] Potassium [Moles/Vol] 3.3 mmol/L Low 3.4-4.9 [facility] Comment on above: Performed By: #### C MP #### [facility] [address] [place] [address] Sodium [Moles/Vol] 135 mmol/L Normal 135-144 [facility] Comment on above: Performed By: #### C MP #### [facility] [address] [place] [address] Urea nitrogen [Mass/Vol] 11 mg/dL Normal 8-23 [facility] Comment on above: Performed By: #### C MP #### [facility] [address] [place] [address] Anion gap [Moles/Vol] 14 mmol/L [place] Calcium [Mass/Vol] 8.8 mg/dL 8.5 - 9.9 mg/dL [place] Chloride [Moles/Vol] 95 mmol/L [place] CO2 [Moles/Vol] 26 mmol/L [place] Creatinine [Mass/Vol] 0.58 mg/dL 0.5 - 0.9 mg/dL [place] GFR >60.0 >60 [place] Comment on above: >60 mL/min/1.73m2 EG FR, calc. for ages 18 and older using the MDRD formula (not corrected for weight), is valid for stable renal function. GFR Non- >60.0 >60 [place] Comment on above: >60 mL/min/1.73m2 EG FR, calc. for ages 18 and older using the MDRD formula (not corrected for weight), is valid for stable renal function. Glucose [Mass/Vol] 156 mg/dL High 70 - 99 mg/dL [place] Interpretation and review of laboratory results Abnormal [place] Potassium [Moles/Vol] 3.3 mmol/L Low [place] Sodium [Moles/Vol] 135 mmol/L [place] Urea nitrogen [Mass/Vol] 11 mg/dL 8 - 23 mg/dL [place] Magnesiumon 11-18-2018 Magnesium [Mass/Vol] 1.8 mg/dL Normal 1.7-2.4 [facility] Comment on above: Performed By: #### C MP #### [facility] [address] [place] [address] Magnesium [Mass/Vol] 1.8 mg/dL 1.7 - 2 .4 mg/dL [place] TSH w/out Reflexon 9 TSH Qn 0.880 uIU/mL Normal 0.440-3.86 [facility] Comment on above: Performed By: #### C MP #### [facility] [address] [place] [address] TSH without Reflexon 019 TSH Qn 0.880 m[IU]/L [place] CBC Auto Differentialon 10-22 Basophils (Bld) [#/Vol] 0.1 10*3/uL 0 - 0.2 K/uL [place] Basophils/100 WBC (Bld) 0.7 % [place] Eosinophils (Bld) [#/Vol] 0.4 10*3/uL 0 - 0.7 K/uL [place] Eosinophils/100 WBC (Bld) 2.8 % [place] Erythrocyte distribution width (RBC) [Ratio] 14.2 % 11.5 - 14.5 % [place] Hematocrit (Bld) [Volume fraction] 32.3 % Low 37 - 47 % [place] Hemoglobin (Bld) [Mass/Vol] 10.8 g/dL Low 12 - 16 g/dL [place] Interpretation and review of laboratory results Abnormal [place] Lymphocytes (Bld) [#/Vol] 2.6 10*3/uL 1 - 4.8 K/uL [place] Lymphocytes/100 WBC (Bld) 16.8 % [place] MCH (RBC) [Entitic mass] 30.3 pg 27 - 31.3 pg [place] MCHC (RBC) [Mass/Vol] 33.4 % 33 - 37 % [place] MCV (RBC) [Entitic vol] 90.5 fL 82 - 100 fL [place] Monocytes (Bld) [#/Vol] 1.3 10*3/uL High 0.2 - 0.8 K/uL [place] Monocytes/100 WBC (Bld) 8.3 % [place] Neutrophils Absolute 11.1 K/uL High 1.4 - 6 .5 K/uL [place] Neutrophils/100 WBC (Bld) 71.4 % [place] Platelets (Bld) [#/Vol] 375 10*3/uL 130 - 400 K/uL [place] RBC (Bld) [#/Vol] 3.57 10*6/uL Low [place] WBC (Bld) [#/Vol] 15.5 10*3/uL High 4.8 - 10.8 K/uL [place] CBC With Platelet and Differ entialon 11-17-2018 Basophils (Bld) [#/Vol] 0.1 10*3/uL Normal 0.0-0.2 [facility] Comment on above: Performed By: #### C MP #### [facility] [address] [place] [address] Basophils/100 WBC (Bld) 0.7 % Normal [facility] Comment on above: Performed By: #### C MP #### [facility] [address] [place] [address] Eosinophils (Bld) [#/Vol] 0.4 10*3/uL Normal 0.0-0.7 [facility] Comment on above: Performed By: #### C MP #### [facility] [address] [place] [address] Eosinophils/100 WBC (Bld) 2.8 % Normal [facility] Comment on above: Performed By: #### C MP #### [facility] [address] [place] [address] Erythrocyte distribution width (RBC) [Ratio] 14.2 % Normal 11.5-14.5 [facility] Comment on above: Performed By: #### C MP #### [facility] [address] [place] [address] Hematocrit (Bld) [Volume fraction] 32.3 % Low 37.0-47.0 [facility] Comment on above: Performed By: #### C MP #### [facility] [address] [place] [address] Hemoglobin (Bld) [Mass/Vol] 10.8 g/dL Low 12.0-16.0 [facility] Comment on above: Performed By: #### C MP #### [facility] [address] [place] [address] Lymphocytes (Bld) [#/Vol] 2.6 10*3/uL Normal 1.0-4.8 [facility] Comment on above: Performed By: #### C MP #### [facility] [address] [place] [address] Lymphocytes/100 WBC (Bld) 16.8 % Normal [facility] Comment on above: Performed By: #### C MP #### [facility] [address] [place] [address] MCH (RBC) [Entitic mass] 30.3 pg Normal 27.0-31.3 [facility] Comment on above: Performed By: #### C MP #### [facility] [address] [place] [address] MCHC (RBC) [Mass/Vol] 33.4 % Normal 33.0-37.0 [facility] Comment on above: Performed By: #### C MP #### [facility] [address] [place] [address] MCV (RBC) [Entitic vol] 90.5 fL Normal 82.0-100.0 M [facility] [facility] Comment on above: Performed By: #### C MP #### [facility] [address] [place] [address] Monocytes (Bld) [#/Vol] 1.3 10*3/uL Critically high 0.2-0. 8 [facility] Comment on above: Performed By: #### C MP #### [facility] [address] [place] [address] Monocytes/100 WBC (Bld) 8.3 % Normal M [facility] Comment on above: Performed By: #### C MP #### [facility] [address] [place] [address] Neutrophils (Bld) [#/Vol] 11.1 10*3/uL Critically high 1.4-6.5 [facility] Comment on above: Performed By: #### C MP #### [facility] [address] [place] [address] Neutrophils/100 WBC (Bld) 71.4 % Normal [facility] Comment on above: Performed By: #### C MP #### [facility] [address] [place] [address] Platelets (Bld) [#/Vol] 375 10*3/uL Normal 130-400 [facility] Comment on above: Performed By: #### C MP #### [facility] [address] [place] [address] RBC (Bld) [#/Vol] 3.57 10*6/uL Low 4.20-5.40 [facility] Comment on above: Performed By: #### C MP #### [facility] [address] [place] [address] WBC (Bld) [#/Vol] 15.5 10*3/uL Critically high 4.8-10.8 [facility] Comment on above: Performed By: #### C MP #### [facility] [address] [place] [address] High Sensitivity CRPon 11-17 High Sensitivity CRP 230.1 mg/L Critically high 0.0-5.0 [facility] Comment on above: Performed By: #### C MP #### [facility] [address] [place] [address] High sensitivity CRPon 11-17 CRP High Sensitivity 230.1 mg/L High 0 - 5 mg/L [place], [place] Interpretation and review of laboratory results Abnormal [place], [place] Sedimentation Rateon 2 019 Sedimentation Rate 50 mm Critically high 0-30 M [facility] Comment on above: Performed By: #### C MP #### [facility] [address] [place] [address] Interpretation and review of laboratory results Abnormal [place], [place] Sed Rate 50 mm High 0 - 30 mm [place] DUP LOWER EXTREMITIES VAUGHN ATERAL VENOUSon 11-17-2018 NO DVT IDENTIFIED IN EITHER LOWER EXTREMITY. [place], [place] Joseph, Chpo Incoming Radiant Results From [facility] - 11/17/2018 8:05 AM EDT US DUP [...] NO DVT IDENTIFIED IN EITHER LOWER EXTREMITY. [place] DUP LOWER EXTREMITIES BILATERAL VENOUS : 11/16/2018 CLINICAL HISTORY: LEG SWELLING, PAIN, DVT SUSPECTED . COMPARISON: None available. Grayscale, compression, color and waveform Doppler analysis of both lower extremity deep venous systems was performed with augmentation. FINDINGS: There is no deep venous thrombosis, abnormal masses, fluid collections or other findings of concern identified within either lower extremity. [place], [place] Urine Cultureon 11-17-2018 Bacteria identified Cx Nom (U) No growth 24 hours [place], [place] ORDERED BY: ADDY COKER SOURCE: Urine Clean Catch COLLECTED: 11/15/18 19:05 ANTIBIOTICS AT DI.: RECEIVED : 11/15/18 19:05 [place] CBC With Platelet and Differ entialon 11-16-2018 Neutrophils (Bld) [#/Vol] 15.5 10*3/uL Critically high 1.4-6.5 [facility] Comment on above: Performed By: #### P TT #### [facility] [address] [place] [address] Basophils (Bld) [#/Vol] 0.2 10*3/uL Normal 0.0-0.2 [place] Comment on above: Performed By: #### P TT #### [facility] [address] [place] [address] Basophils/100 WBC (Bld) 0.9 % Normal [place] Comment on above: Performed By: #### P TT #### [facility] [address] [place] [address] Eosinophils (Bld) [#/Vol] 0.1 10*3/uL Normal 0.0-0.7 [place] Comment on above: Performed By: #### P TT #### [facility] [address] [place] [address] Eosinophils/100 WBC (Bld) 0.8 % Normal [place] Comment on above: Performed By: #### P TT #### [facility] [address] [place] [address] Erythrocyte distribution width (RBC) [Ratio] 14.4 % Normal 11.5-14.5 [place] Comment on above: Performed By: #### P TT #### [facility] [address] [place] [address] Hematocrit (Bld) [Volume fraction] 33.4 % Low 37.0-47.0 [place] Comment on above: Performed By: #### P TT #### [facility] [address] [place] [address] Hemoglobin (Bld) [Mass/Vol] 11.0 g/dL Low 12.0-16.0 [place] Comment on above: Performed By: #### P TT #### [facility] [address] [place] [address] Lymphocytes (Bld) [#/Vol] 1.5 10*3/uL Normal 1.0-4.8 [place] Comment on above: Performed By: #### P TT #### [facility] [address] [place] [address] Lymphocytes/100 WBC (Bld) 7.9 % Normal [place] Comment on above: Performed By: #### P TT #### [facility] [address] [place] [address] MCH (RBC) [Entitic mass] 29.4 pg Normal 27.0-31.3 [place] Comment on above: Performed By: #### P TT #### [facility] [address] [place] [address] MCHC (RBC) [Mass/Vol] 32.9 % Low 33.0-37.0 [place] Comment on above: Performed By: #### P TT #### [facility] [address] [place] [address] MCV (RBC) [Entitic vol] 89.4 fL Normal 82.0-100.0 [place] Comment on above: Performed By: #### P TT #### [facility] [address] [place] [address] Monocytes (Bld) [#/Vol] 1.3 10*3/uL Critically high 0.2-0. 8 [place] Comment on above: Performed By: #### P TT #### [facility] [address] [place] [address] Monocytes/100 WBC (Bld) 7.1 % Normal [place] Comment on above: Performed By: #### P TT #### [facility] [address] [place] [address] Neutrophils/100 WBC (Bld) 83.3 % Normal [place] Comment on above: Performed By: #### P TT #### [facility] [address] [place] [address] Platelets (Bld) [#/Vol] 304 10*3/uL Normal 130-400 [place] Comment on above: Performed By: #### P TT #### [facility] [address] [place] [address] RBC (Bld) [#/Vol] 3.74 10*6/uL Low 4.20-5.40 [place] Comment on above: Performed By: #### P TT #### [facility] [address] [facility] [address] WBC (Bld) [#/Vol] 18.6 10*3/uL Critically high 4.8-10.8 [place] Comment on above: Performed By: #### P TT #### [facility] [address] [facility] [address] CBC auto differentialon 10-22 Interpretation and review of laboratory results Abnormal [place] Neutrophils Absolute 15.5 K/uL High 1.4 - 6 .5 K/uL [place] ECHO Complete 2D W Doppler W Coloron 11-16-2018 Transthoracic Echocardiography Report (TTE) Demographics Patient Name MERCY GANDHI Gender Female Patient Number [id number] Race Unknown Ethnicity Visit Number [id number] Room Number R238 Corporate ID Date of Study 11/16/2018 Referring Physician Niki Vazquez DO Number Date of 1935 [address] Age 83 year(s) Interpreting [facility] Physician Cardiology Cain Quinonez MD Procedure Type [...] Gradient: 4.03 mmHg Estimated PASP: 40.86 mmHg [place] ED Velocity: 1.27 m/s LVOT Peak Velocity: [...] cm LVOT Diameter: 1.65 cm [facility]- [place], [place] Joseph, Chpo Incoming Cardiovascular Results From [facility] - 11/16/2018 5:05 PM EDT Transthoracic Echocardiography Report (TTE) Demographics Patient Name MADRID HIRAM Gender Female Patient Number [id number] Race Unknown Ethnicity Visit Number [id number] Room Number R238 Corporate ID Date of Study 11/16/2018 Referring Physician DO Natalia Dickens Date of 1935 [employer] 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 Age 83 year(s) Interpreting [facility] Physician Cardiology Cain Quinonez MD Procedure Type [...] Gradient: 4.03 mmHg Estimated PASP: 40.86 mmHg [place] ED Velocity: 1.27 m/s LVOT Peak Velocity: [...] Root: 2.35 cm LVOT Diameter: 1.65 cm [place] Microscopic Urinalysison Bacteria, UA Negative /HPF [place] Epi Cells 3-5 /HPF [place] Interpretation and review of laboratory results Abnormal [place] RBC (U) [#/Vol] 3-5 Abnormal [place] Renal Epithelial, Urine 0-2 Abnormal /HPF [place] WBC, UA None seen [place] CAROTID ARTERY BILATERALo n 11-16-2018 [...] Damped resistive CCA decreased decreased resistive CCA [place] Joseph, Chpo Incoming Radiant Results From [employer] - 11/16/2018 10:40 AM EDT Patient : [...] Damped resistive CCA decreased decreased resistive CCA [facility] [place] Patient 5 : 1935 Age: 83 years [...] and noncalcified plaque bilateral carotid arterial systems [place] US DUP LOWER EXTREMITIES VAUGHN ATERAL [...] De Souza MD 11/17/18 Final result Normal [facility] Urine Microscopicon 11-17-19 19 Bacteria LM.HPF (Urine sed) [#/Area] Negative Normal [facility] Comment on above: Performed By: #### P TT #### [facility] [address] [place] [address] Epithelial cells LM Ql (Urine sed) 3-5 Normal [facility] Comment on above: Performed By: #### P TT #### [facility] [address] [place] [address] RBC (U) [#/Vol] 3-5 Abnormal 0-2 [facility] Comment on above: Performed By: #### P TT #### [facility] [address] [place] [address] Urine Renal Epithelial 0-2 Abnormal Me [facility] Comment on above: Performed By: #### P TT #### [facility] [address] [place] [address] WBC (U) [#/Vol] None seen Normal 0-5 [facility] Comment on above: Performed By: #### P TT #### [facility] [address] [place] [address] XR CHEST PORTABLEon 11-17-19 19 Joseph, Chpo Incoming Radiant Results From [facility] - 11/16/2018 10:21 AM EDT EXAMINATION: XR CHEST PORTABLE CLINICAL HISTORY: fever . History of back surgery. COMPARISONS: None available. FINDINGS: Single AP portable view the chest obtained on November 15, 2018 at 2124 hours. The heart is not enlarged. Mediastinum is not widened. Calcified aorta is not dilated. Lungs are clear. The chest wall is unremarkable. CONCLUSION: NO ACUTE PROCESS [place] EXAMINATION: XR CHES T PORTABLE CLINICAL HISTORY: fever . History of back surgery. COMPARISONS: None available. FINDINGS: Single AP portable view the chest obtained on November 15, 2018 at 2124 hours. The heart is not enlarged. Mediastinum is not widened. Calcified aorta is not dilated. Lungs are clear. The chest wall is unremarkable. CONCLUSION: NO ACUTE PROCESS [place] CBC Auto Differentialon 10-22 Anisocytosis Ql (Bld) 1+ [place] Bands Relative 4 % Low 5 - 11 % [place] Basophils (Bld) [#/Vol] 0.0 10*3/uL 0 - 0.2 K/uL [place] Basophils/100 WBC (Bld) 0.6 % [place] Eosinophils (Bld) [#/Vol] 0.0 10*3/uL 0 - 0.7 K/uL [place] Eosinophils/100 WBC (Bld) 0.9 % [place] Erythrocyte distribution width (RBC) [Ratio] 14.6 % High 11.5 - 14.5 % [place] Hematocrit (Bld) [Volume fraction] 33.3 % Low 37 - 47 % [place] Hemoglobin (Bld) [Mass/Vol] 10.9 g/dL Low 12 - 16 g/dL [place] Interpretation and review of laboratory results Abnormal [place] Lymphocytes (Bld) [#/Vol] 3.5 10*3/uL 1 - 4.8 K/uL [place] Lymphocytes/100 WBC (Bld) 17.0 % [place] MCH (RBC) [Entitic mass] 29.8 pg 27 - 31.3 pg [place] MCHC (RBC) [Mass/Vol] 32.9 % Low 33 - 37 % [place] MCV (RBC) [Entitic vol] 90.7 fL 82 - 100 fL [place] Microcytes 1+ [place] Monocytes (Bld) [#/Vol] 0.0 10*3/uL Low 0.2 - 0.8 K/uL [place] Monocytes/100 WBC (Bld) 7.7 % [place] Neutrophils Absolute 17.3 K/uL High 1.4 - 6 .5 K/uL [place] Neutrophils/100 WBC (Bld) 79.0 % [place] PLATELET SLIDE REVIEW Normal [place] Platelets (Bld) [#/Vol] 315 10*3/uL 130 - 400 K/uL [place] RBC (Bld) [#/Vol] 3.67 10*6/uL Low [place] WBC (Bld) [#/Vol] 20.8 10*3/uL High 4.8 - 10.8 K/uL [place] CBC With Platelet No Differe ntialon 11-15-2018 Erythrocyte distribution width (RBC) [Ratio] 14.5 % Normal 11.5-14.5 [facility] Comment on above: Performed By: #### P TT #### [facility] [address] [place] [address] Hematocrit (Bld) [Volume fraction] 36.9 % Low 37.0-47.0 [facility] Comment on above: Performed By: #### P TT #### [facility] [address] [place] [address] Hemoglobin (Bld) [Mass/Vol] 11.9 g/dL Low 12.0-16.0 [facility] Comment on above: Performed By: #### P TT #### [facility] [address] [place] [address] MCH (RBC) [Entitic mass] 29.4 pg Normal 27.0-31.3 [facility] Comment on above: Performed By: #### P TT #### [facility] [address] [place] [address] MCHC (RBC) [Mass/Vol] 32.3 % Low 33.0-37.0 [facility] Comment on above: Performed By: #### P TT #### [facility] [address] [place] [address] MCV (RBC) [Entitic vol] 91.1 fL Normal 82.0-100.0 [facility] Comment on above: Performed By: #### P TT #### [facility] [address] [place] [address] Platelets (Bld) [#/Vol] 341 10*3/uL Normal 130-400 [facility] Comment on above: Performed By: #### P TT #### [facility] [address] [place] [address] RBC (Bld) [#/Vol] 4.05 10*6/uL Low 4.20-5.40 [facility] Comment on above: Performed By: #### P TT #### [facility] [address] [place] [address] WBC (Bld) [#/Vol] 19.8 10*3/uL Critically high 4.8-10.8 [facility] Comment on above: Performed By: #### P TT #### [facility] [address] [place] [address] CBC With Platelet and Differ entialon 11-15-2018 Anisocytosis Ql (Bld) 1+ Normal [facility] Comment on above: Performed By: #### P TT #### [facility] [address] [place] [address] Bands 4 % Low 5-11 [facility] Comment on above: Performed By: #### P TT #### [facility] [address] [place] [address] Basophils (Bld) [#/Vol] 0.0 10*3/uL Normal 0.0-0.2 [facility] Comment on above: Performed By: #### P TT #### [facility] [address] [place] [address] Basophils/100 WBC (Bld) 0.6 % Normal [facility] Comment on above: Performed By: #### P TT #### [facility] [address] [place] [address] Eosinophils (Bld) [#/Vol] 0.0 10*3/uL Normal 0.0-0.7 [facility] Comment on above: Performed By: #### P TT #### [facility] [address] [place] [address] Eosinophils/100 WBC (Bld) 0.9 % Normal [facility] Comment on above: Performed By: #### P TT #### [facility] [address] [place] [address] Lymphocytes (Bld) [#/Vol] 3.5 10*3/uL Normal 1.0-4.8 [facility] Comment on above: Performed By: #### P TT #### [facility] [address] [place] [address] Lymphocytes/100 WBC (Bld) 17.0 % Normal [facility] Comment on above: Performed By: #### P TT #### [facility] [address] [place] [address] Microcytic 1+ Normal [facility] Comment on above: Performed By: #### P TT #### [facility] [address] [place] [address] Monocytes (Bld) [#/Vol] 0.0 10*3/uL Low 0.2-0.8 [facility] Comment on above: Performed By: #### P TT #### [facility] [address] [place] [address] Monocytes/100 WBC (Bld) 7.7 % Normal [facility] Comment on above: Performed By: #### P TT #### [facility] [address] [place] [address] Neutrophils (Bld) [#/Vol] 17.3 10*3/uL Critically high 1.4-6.5 [facility] Comment on above: Performed By: #### P TT #### [facility] [address] [place] [address] Neutrophils/100 WBC (Bld) 79.0 % Normal [facility] Comment on above: Performed By: #### P TT #### [facility] [address] [place] [address] Platelet Slide Review Normal Normal [facility] Comment on above: Performed By: #### P TT #### [facility] [address] [place] [address] Erythrocyte distribution width (RBC) [Ratio] 14.6 % Critically high 11.5-14.5 [facility] Comment on above: Performed By: #### P TT #### [facility] [address] [place] [address] Hematocrit (Bld) [Volume fraction] 33.3 % Low 37.0-47.0 [facility] Comment on above: Performed By: #### P TT #### [facility] [address] [place] [address] Hemoglobin (Bld) [Mass/Vol] 10.9 g/dL Low 12.0-16.0 [facility] Comment on above: Performed By: #### P TT #### [facility] [address] [place] [address] MCH (RBC) [Entitic mass] 29.8 pg Normal 27.0-31.3 [facility] Comment on above: Performed By: #### P TT #### [facility] [address] [place] [address] MCHC (RBC) [Mass/Vol] 32.9 % Low 33.0-37.0 [facility] Comment on above: Performed By: #### P TT #### [facility] [address] [place] [address] MCV (RBC) [Entitic vol] 90.7 fL Normal 82.0-100.0 [facility] Comment on above: Performed By: #### P TT #### [facility] [address] [place] [address] Platelets (Bld) [#/Vol] 315 10*3/uL Normal 130-400 [facility] Comment on above: Performed By: #### P TT #### [facility] [address] [place] [address] RBC (Bld) [#/Vol] 3.67 10*6/uL Low 4.20-5.40 [facility] Comment on above: Performed By: #### P TT #### [facility] [address] [place] [address] WBC (Bld) [#/Vol] 20.8 10*3/uL Critically high 4.8-10.8 [facility] Comment on above: Performed By: #### P TT #### [facility] [address] [place] [address] Comprehensive Metabolic Pane l reflex Mgon 11-15-2018 Albumin [Mass/Vol] 3.3 g/dL Low 3.5-4.6 [facility] Comment on above: Performed By: #### P TT #### [facility] [address] [place] [address] ALP [Catalytic activity/Vol] 71 U/L Normal 40-130 [facility] Comment on above: Performed By: #### P TT #### [facility] [address] [place] [address] ALT [Catalytic activity/Vol] 12 U/L Normal 0-33 [facility] Comment on above: Performed By: #### P TT #### [facility] [address] [place] [address] Anion gap [Moles/Vol] 11 mmol/L Normal 9-15 [facility] Comment on above: Performed By: #### P TT #### [facility] [address] [place] [address] AST [Catalytic activity/Vol] 28 U/L Normal 0-35 [facility] Comment on above: Performed By: #### P TT #### [facility] [address] [place] [address] Bilirubin [Mass/Vol] 0.4 mg/dL Normal 0.2-0.7 [facility] Comment on above: Performed By: #### P TT #### [facility] [address] [place] [address] Calcium [Mass/Vol] 9.1 mg/dL Normal 8.5-9.9 [facility] Comment on above: Performed By: #### P TT #### [facility] [address] [place] [address] Chloride [Moles/Vol] 98 mmol/L Normal 95-107 [facility] Comment on above: Performed By: #### P TT #### [facility] [address] [place] [address] CO2 [Moles/Vol] 27 mmol/L Normal 20-31 [facility] Comment on above: Performed By: #### P TT #### [facility] [address] [place] [address] Creatinine [Mass/Vol] 0.59 mg/dL Normal 0.50-0.90 [facility] Comment on above: Performed By: #### P TT #### [facility] [address] [place] [address] GFR/1.73 sq M predicted among blacks MDRD (S/P/Bld) [Vol rate/Area] mL/min/{1.73_m2} Normal >60 [facility] Comment on above: Result Comment: >60 mL/min/1.73m2 EGFR, calc. for ages 18 and older using the MDRD formula (not corrected for weight), is valid for stable renal function. Performed By: #### P TT #### [facility] [address] [place] [address] GFR/1.73 sq M.predicted MDRD (S/P/Bld) [Vol rate/Area] mL/min/{1.73_m2} Normal >60 [facility] Comment on above: Result Comment: >60 mL/min/1.73m2 EGFR, calc. for ages 18 and older using the MDRD formula (not corrected for weight), is valid for stable renal function. Performed By: #### P TT #### [facility] [address] [place] [address] Globulin (S) [Mass/Vol] 3.2 g/dL Normal 2.3-3.5 [facility] Comment on above: Performed By: #### P TT #### [facility] [address] [place] [address] Glucose [Mass/Vol] 123 mg/dL Critically high 70-99 [facility] Comment on above: Performed By: #### P TT #### [facility] [address] [place] [address] Potassium reflex Mg 3.8 mEq/L Normal 3.4-4.9 [facility] Comment on above: Performed By: #### P TT #### [facility] [address] [place] [address] Protein [Mass/Vol] 6.5 g/dL Normal 6.3-8.0 [facility] Comment on above: Performed By: #### P TT #### [facility] [address] [place] [address] Sodium [Moles/Vol] 136 mmol/L Normal 135-144 [facility] Comment on above: Performed By: #### P TT #### [facility] [address] [place] [address] Urea nitrogen [Mass/Vol] 6 mg/dL Low 8-23 [facility] Comment on above: Performed By: #### P TT #### [facility] [address] [place] [address] Culture, Blood 2on 9 Culture, Blood 2 ORDERED BY: ADDY COKER SOURCE: Blood COLLECTED: 11/15/18 16:37 ANTIBIOTICS AT DI.: RECEIVED : 11/15/18 16:42 Culture, Blood 2 FINAL 11/20/18 18:15 No growth after 5 days of incubation. Normal [facility] Comment on above: Performed By: #### C MP #### [facility] [address] [place] [address] Culture, Urineon 11-15-2018 Culture, Urine ORDERED BY: ADDY COKER SOURCE: Urine Clean Catch COLLECTED: 11/15/18 19:05 ANTIBIOTICS AT DI.: RECEIVED : 11/15/18 19:05 Culture, Urine FINAL 11/17/18 07:28 No growth 24 hours Normal [facility] Comment on above: Performed By: #### C MP #### [facility] [address] [place] [address] URINE RT REFLEX TO CULTUREon 11-15-2018 Bilirubin Urine Negative Negative [place] Blood, Urine TRACE Abnormal Negative [place] Clarity, UA Clear Clear [place] Color, UA Yellow Straw/Yello w [place] Glucose, Ur Negative Negative mg/dL [place] Interpretation and review of laboratory results Abnormal [place] Ketones Ql (U) Negative Negative mg/dL [place] Leukocyte esterase Test strip Ql (U) Negative Negative [place] Nitrite, Urine Negative Negative [place] pH, UA 7.0 [place] Protein (U) [Mass/Vol] 30 mg/dL Abnormal Negative Me [place] Specific [place], UA 1.014 [place] Urine Reflex to Culture YES [place] Urobilinogen, Urine 0.2 <2.0 E.U./dL [place] CAROTID ARTERY BILATERALo n 11-15-2018 [...] Mohsen Childers MD 11/16/18 Final result Normal [facility] Urinalysis, reflex to cultur kendall 11-15-2018 Bilirubin Ql (U) Negative Normal Negative [facility] Comment on above: Performed By: #### P TT #### [facility] [address] [place] [address] Clarity (U) Clear Normal Clear [facility] Comment on above: Performed By: #### P TT #### [facility] [address] [place] [address] Color (U) Yellow Normal Straw/Grady [facility] Comment on above: Performed By: #### P TT #### [facility] [address] [place] [address] Glucose Ql (U) Negative Normal Negative [facility] Comment on above: Performed By: #### P TT #### [facility] [facility] [address] [place] [address] Hemoglobin Ql (U) TRACE Abnormal Negative [facility] Comment on above: Performed By: #### P TT #### [facility] [address] [place] [address] Ketones Ql (U) Negative Normal Negative [facility] Comment on above: Performed By: #### P TT #### [facility] [address] [place] [address] Leukocyte esterase Test strip Ql (U) Negative Normal Negative [facility] Comment on above: Performed By: #### P TT #### [facility] [address] [place] [address] Nitrite Ql (U) Negative Normal Negative [facility] Comment on above: Performed By: #### P TT #### [facility] [address] [place] [address] pH (U) 7.0 [pH] Normal 5.0-9.0 [facility] Comment on above: Performed By: #### P TT #### [facility] [address] [place] [address] Protein Ql (U) 30 mg/dL Abnormal Negative [facility] Comment on above: Performed By: #### P TT #### [facility] [address] [place] [address] Specific gravity (U) [Rel density] 1.014 Normal 1.005-1.03 [facility] Comment on above: Performed By: #### P TT #### [facility] [address] [place] [address] Urine Reflexed to Culture YES Normal [facility] Comment on above: Performed By: #### P TT #### [facility] [address] [place] [address] Urobilinogen Qn (U) 0.2 {Juan'U}/dL Normal < 2.0 [facility] Comment on above: Performed By: #### P TT #### [facility] [address] [place] [address] XR CHEST PORTABLEon 11-16-19 19 XR CHEST [...] Pearl Varghese MD 11/16/18 Final result Normal [facility] Basic Metabolic Panel Reflex Mgon 11-14-2018 Anion gap [Moles/Vol] 10 mmol/L Normal 9-15 [facility] Comment on above: Performed By: #### P T #### [facility] [address] [place] [address] Calcium [Mass/Vol] 8.4 mg/dL Low 8.5-9.9 [facility] Comment on above: Performed By: #### P T #### [facility] [address] [place] [address] Chloride [Moles/Vol] 100 mmol/L Normal 95-107 [facility] Comment on above: Performed By: #### P T #### [facility] [address] [place] [address] CO2 [Moles/Vol] 25 mmol/L Normal 20-31 [facility] Comment on above: Performed By: #### P T #### [facility] [address] [place] [address] Creatinine [Mass/Vol] 0.66 mg/dL Normal 0.50-0.90 [facility] Comment on above: Performed By: #### P T #### [facility] [address] [place] [address] GFR/1.73 sq M predicted among blacks MDRD (S/P/Bld) [Vol rate/Area] mL/min/{1.73_m2} Normal >60 [facility] Comment on above: Result Comment: >60 mL/min/1.73m2 EGFR, calc. for ages 18 and older using the MDRD formula (not corrected for weight), is valid for stable renal function. Performed By: #### P T #### [facility] [address] [place] [address] GFR/1.73 sq M.predicted MDRD (S/P/Bld) [Vol rate/Area] mL/min/{1.73_m2} Normal >60 [facility] Comment on above: Result Comment: >60 mL/min/1.73m2 EGFR, calc. for ages 18 and older using the MDRD formula (not corrected for weight), is valid for stable renal function. Performed By: #### P T #### [facility] [address] [place] [address] Glucose [Mass/Vol] 144 mg/dL Critically high 70-99 [facility] Comment on above: Performed By: #### P T #### [facility] [address] [place] [address] Potassium reflex Mg 4.1 mEq/L Normal 3.4-4.9 [facility] Comment on above: Performed By: #### P T #### [facility] [address] [place] [address] Sodium [Moles/Vol] 135 mmol/L Normal 135-144 [facility] Comment on above: Performed By: #### P T #### [facility] [address] [place] [address] Urea nitrogen [Mass/Vol] 6 mg/dL Low 8-23 [facility] Comment on above: Performed By: #### P T #### [facility] [address] [place] [address] CBC With Platelet and Differ entialon 11-14-2018 Basophils (Bld) [#/Vol] 0.1 10*3/uL Normal 0.0-0.2 [facility] Comment on above: Performed By: #### P T #### [facility] [address] [place] [address] Basophils/100 WBC (Bld) 0.5 % Normal [facility] Comment on above: Performed By: #### P T #### [facility] [address] [place] [address] Eosinophils (Bld) [#/Vol] 0.1 10*3/uL Normal 0.0-0.7 [facility] Comment on above: Performed By: #### P T #### [facility] [address] [place] [address] Eosinophils/100 WBC (Bld) 0.8 % Normal [facility] Comment on above: Performed By: #### P T #### [facility] [address] [place] [address] Erythrocyte distribution width (RBC) [Ratio] 14.1 % Normal 11.5-14.5 [facility] Comment on above: Performed By: #### P T #### [facility] [address] [place] [address] Hematocrit (Bld) [Volume fraction] 35.4 % Low 37.0-47.0 [facility] Comment on above: Performed By: #### P T #### [facility] [address] [place] [address] Hemoglobin (Bld) [Mass/Vol] 11.7 g/dL Low 12.0-16.0 [facility] Comment on above: Performed By: #### P T #### [facility] [address] [place] [address] Lymphocytes (Bld) [#/Vol] 2.7 10*3/uL Normal 1.0-4.8 [facility] Comment on above: Performed By: #### P T #### [facility] [address] [place] [address] Lymphocytes/100 WBC (Bld) 15.7 % Normal [facility] Comment on above: Performed By: #### P T #### [facility] [address] [place] [address] MCH (RBC) [Entitic mass] 29.7 pg Normal 27.0-31.3 [facility] Comment on above: Performed By: #### P T #### [facility] [address] [place] [address] MCHC (RBC) [Mass/Vol] 33.1 % Normal 33.0-37.0 [facility] Comment on above: Performed By: #### P T #### [facility] [address] [place] [address] MCV (RBC) [Entitic vol] 89.6 fL Normal 82.0-100.0 [facility] Comment on above: Performed By: #### P T #### [facility] [address] [place] [address] Monocytes (Bld) [#/Vol] 1.4 10*3/uL Critically high 0.2-0. 8 [facility] Comment on above: Performed By: #### P T #### [facility] [address] [place] [address] Monocytes/100 WBC (Bld) 7.9 % Normal [facility] Comment on above: Performed By: #### P T #### [facility] [address] [place] [address] Neutrophils (Bld) [#/Vol] 12.8 10*3/uL Critically high 1.4-6.5 [facility] Comment on above: Performed By: #### P T #### [facility] [address] [place] [address] Neutrophils/100 WBC (Bld) 75.1 % Normal [facility] Comment on above: Performed By: #### P T #### [facility] [address] [place] [address] Platelets (Bld) [#/Vol] 345 10*3/uL Normal 130-400 [facility] Comment on above: Performed By: #### P T #### [facility] [address] [place] [address] RBC (Bld) [#/Vol] 3.95 10*6/uL Low 4.20-5.40 [facility] Comment on above: Performed By: #### P T #### [facility] [address] [place] [address] WBC (Bld) [#/Vol] 17.0 10*3/uL Critically high 4.8-10.8 [facility] Comment on above: Performed By: #### P T #### [facility] [address] [place] [address] POCT Glucoseon 11-14-2018 Glucose [Mass/Vol] 116 mg/dL Critically high 60-115 [facility] Comment on above: Performed By: #### P T #### [facility] [address] [place] [address] POC Performed on ACCU-CHEK Normal [facility] Comment on above: Performed By: #### P T #### [facility] [address] [place] [address] XR LUMBAR SPINE (2-3 VIEWS)o n 11-14-2018 [...] Mohsen Childers MD 11/14/18 Final result Normal [facility] Basic Metabolic Panel Reflex Mgon 11-13-2018 Anion gap [Moles/Vol] 13 mmol/L Normal 9-15 [facility] Comment on above: Performed By: #### P T #### [facility] [address] [place] [address] Calcium [Mass/Vol] 9.0 mg/dL Normal 8.5-9.9 [facility] Comment on above: Performed By: #### P T #### [facility] [address] [place] [address] Chloride [Moles/Vol] 101 mmol/L Normal 95-107 [facility] Comment on above: Performed By: #### P T #### [facility] [address] [place] [address] CO2 [Moles/Vol] 24 mmol/L Normal 20-31 [facility] Comment on above: Performed By: #### P T #### [facility] [address] [place] [address] Creatinine [Mass/Vol] 0.62 mg/dL Normal 0.50-0.90 [facility] Comment on above: Performed By: #### P T #### [facility] [address] [place] [address] GFR/1.73 sq M predicted among blacks MDRD (S/P/Bld) [Vol rate/Area] mL/min/{1.73_m2} Normal >60 [facility] Comment on above: Result Comment: >60 mL/min/1.73m2 EGFR, calc. for ages 18 and older using the MDRD formula (not corrected for weight), is valid for stable renal function. Performed By: #### P T #### [facility] [address] [place] [address] GFR/1.73 sq M.predicted MDRD (S/P/Bld) [Vol rate/Area] mL/min/{1.73_m2} Normal >60 [facility] Comment on above: Result Comment: >60 mL/min/1.73m2 EGFR, calc. for ages 18 and older using the MDRD formula (not corrected for weight), is valid for stable renal function. Performed By: #### P T #### [facility] [address] [place] [address] Glucose [Mass/Vol] 136 mg/dL Critically high 70-99 [facility] Comment on above: Performed By: #### P T #### [facility] [address] [place] [address] Potassium reflex Mg 3.6 mEq/L Normal 3.4-4.9 [facility] Comment on above: Performed By: #### P T #### [facility] [address] [place] [address] Sodium [Moles/Vol] 138 mmol/L Normal 135-144 [facility] Comment on above: Performed By: #### P T #### [facility] [address] [place] [address] Urea nitrogen [Mass/Vol] 7 mg/dL Low 8-23 [facility] Comment on above: Performed By: #### P T #### [facility] [address] [place] [address] CBC With Platelet No Differe ntialon 11-13-2018 Erythrocyte distribution width (RBC) [Ratio] 14.2 % Normal 11.5-14.5 [facility] Comment on above: Performed By: #### P T #### [facility] [address] [place] [address] Hematocrit (Bld) [Volume fraction] 40.3 % Normal 37.0-47.0 [facility] Comment on above: Performed By: #### P T #### [facility] [address] [place] [address] Hemoglobin (Bld) [Mass/Vol] 13.1 g/dL Normal 12.0-16.0 [facility] Comment on above: Performed By: #### P T #### [facility] [address] [place] [address] MCH (RBC) [Entitic mass] 29.1 pg Normal 27.0-31.3 [facility] Comment on above: Performed By: #### P T #### [facility] [address] [place] [address] MCHC (RBC) [Mass/Vol] 32.4 % Low 33.0-37.0 [facility] Comment on above: Performed By: #### P T #### [facility] [address] [place] [address] MCV (RBC) [Entitic vol] 89.9 fL Normal 82.0-100.0 [facility] Comment on above: Performed By: #### P T #### [facility] [address] [place] [address] Platelets (Bld) [#/Vol] 394 10*3/uL Normal 130-400 [facility] Comment on above: Performed By: #### P T #### [facility] [address] [place] [address] RBC (Bld) [#/Vol] 4.48 10*6/uL Normal 4.20-5.40 [facility] Comment on above: Performed By: #### P T #### [facility] [address] [place] [address] WBC (Bld) [#/Vol] 11.8 10*3/uL Critically high 4.8-10.8 [facility] Comment on above: Performed By: #### P T #### [facility] [address] [place] [id number] Culture, MRSA Screenon 11-13 Culture, MRSA Screen ORDERED BY: BRENNAN HERRON SOURCE: Nares COLLECTED: 11/13/18 09:29 ANTIBIOTICS AT DI.: RECEIVED : 11/13/18 09:29 Culture, MRSA Screen FINAL 11/14/18 08:02 No MRSA isolated Normal [facility] Comment on above: Performed By: #### P T #### [facility] [address] [place] [id number] FLUORO FOR SURGICAL PROCEDUR ESon 11-13-2018 FLUORO [...] Mohsen Childers MD 11/13/18 Final result Normal [facility] Surgical Specimenon 11-14-19 19 Surgical Specimen [facility] [address] [place], [place] [address] [address] FINAL SURGICAL PATHOLOGY REPORT Patient Name: HIRAM MADRID Accession No: [id number] Age Sex: 1935 Location: [facility] [id number] Account No: [id number] Collected: 11/13/2018 Med Rec No: [id number] Received: 11/14/2018 Attend Phys: LENNY CORRAL Completed: [...] two cassettes after brief decalcification. UVALDO/NIKKY CPT: 81589 X1 61203 X1 STANLEY GRAFF M.D. 11/15/2018 Electronically signed out by Page 1 of 1 [facility] Comment on above: Performed By: #### P TT #### [facility] [address] [place] [address] Type and Screen Capture 3 sc rn cellon 11-13-2018 Type and Screen Capture 3 scrn cell PATIENT: MERCY GANDHI LOC: ERICK,ORKAMRONOL,NON BILL# : [id number] : 1935 SEX: F ORDERED BY: OGPAL AMIN ORDERED : 11/13/2018 08:10 COLLECTED: 11/13/2018 09:24 ORDER : [id number] RECEIVED : 11/13/2018 09:24 TEST NAME RESULT UNITS RANGES ABN FL ST ABORH Capture A POS F Antibody 3 Cell Scrn Captu NEG F Normal [facility] Comment on above: Performed By: #### T S3C #### [facility] [address] [place] [address] XR SPINE ENTIRE (2-3 VIEWS)o n 11-13-2018 [...] Mohsen Childers MD 11/13/18 Final result Normal [facility] MRI LUMBAR SPINE W WO CONTRA [...] UNDERLYING PATHOLOGY OR RECENT INJURY. [facility] [place], [place] Joseph, Chpo Incoming Radiant Results From [facility] - 11/05/2018 3:07 PM EDT EXAMINATION: MRI [...] SIGNS OF UNDERLYING PATHOLOGY OR RECENT INJURY. [facility], [place] MRI LUMBAR SPINE W WO CONTRAST EXAMINATION: [...] Pearl Varghese MD 11/05/18 Final result Normal [facility] Otheron 11-05-2018 Joseph, Chpo Incoming Radiant Results From [facility] - 11/05/2018 1:21 PM EDT EXAMINATION: XR [...] AND POSTOPERATIVE FINDINGS, WITHOUT ACUTE SUPERIMPOSED ABNORMALITY. [place], [place] EXAMINATION: XR LUMB AR SPINE (MIN [...] AND POSTOPERATIVE FINDINGS, WITHOUT ACUTE SUPERIMPOSED ABNORMALITY. [place], [place] XR CHEST (2 VW)on 11-05-2018 XR [...] Pearl Varghese MD 11/05/18 Final result Normal [facility] XR LUMBAR SPINE (MIN 4 VIEWS [...] Pearl Varghese MD 11/05/18 Final result Normal [facility] APTTon 11-04-2018 aPTT Coag (Bld) [Time] 27.9 s [facility]- [place], [place] Comment on above: Effective 09/06/2018: Please note methodology and/or reference ranges have changed. aPTT - Heparin Therapeutic Range: 74.0 - 106 seconds C-Reactive Proteinon 11-04- 019 CRP [Mass/Vol] 1.3 mg/L Normal 0.0-5.0 [facility] Comment on above: Performed By: #### C RP #### [facility] [address] [place] [address] CRP [Mass/Vol] 1.3 mg/L 0 - 5 mg/L [place], [place] CBC Auto Differentialon 10-21 Basophils (Bld) [#/Vol] 0.1 10*3/uL 0 - 0.2 K/uL [place] Basophils/100 WBC (Bld) 1.1 % [place] Eosinophils (Bld) [#/Vol] 0.2 10*3/uL 0 - 0.7 K/uL [place] Eosinophils/100 WBC (Bld) 1.3 % [place] Erythrocyte distribution width (RBC) [Ratio] 13.9 % 11.5 - 14.5 % [place] Hematocrit (Bld) [Volume fraction] 41.3 % 37 - 47 % [place] Hemoglobin (Bld) [Mass/Vol] 14.3 g/dL 12 - 16 g/dL [place] Interpretation and review of laboratory results Abnormal [place] Lymphocytes (Bld) [#/Vol] 3.5 10*3/uL 1 - 4.8 K/uL [place] Lymphocytes/100 WBC (Bld) 28.2 % [place] MCH (RBC) [Entitic mass] 30.5 pg 27 - 31.3 pg [place] MCHC (RBC) [Mass/Vol] 34.6 % 33 - 37 % [place], [place] MCV (RBC) [Entitic vol] 88.0 fL 82 - 100 fL [place] Monocytes (Bld) [#/Vol] 0.8 10*3/uL 0.2 - 0.8 K/uL [place] Monocytes/100 WBC (Bld) 6.8 % [place] Neutrophils Absolute 7.7 K/uL High 1.4 - 6 .5 K/uL [place] Neutrophils/100 WBC (Bld) 62.6 % [place] Platelets (Bld) [#/Vol] 435 10*3/uL High 130 - 400 K/uL [place] RBC (Bld) [#/Vol] 4.69 10*6/uL [place] WBC (Bld) [#/Vol] 12.4 10*3/uL High 4.8 - 10.8 K/uL [place] CBC With Platelet and Differ entialon 11-04-2018 Basophils (Bld) [#/Vol] 0.1 10*3/uL Normal 0.0-0.2 [facility] Comment on above: Performed By: #### C BCWD #### [facility] [address] [place] [address] Basophils/100 WBC (Bld) 1.1 % Normal [facility] Comment on above: Performed By: #### C BCWD #### [facility] [address] [place] [address] Eosinophils (Bld) [#/Vol] 0.2 10*3/uL Normal 0.0-0.7 [facility] Comment on above: Performed By: #### C BCWD #### [facility] [address] [place] [address] Eosinophils/100 WBC (Bld) 1.3 % Normal [facility] Comment on above: Performed By: #### C BCWD #### [facility] [address] [place] [address] Erythrocyte distribution width (RBC) [Ratio] 13.9 % Normal 11.5-14.5 [facility] Comment on above: Performed By: #### C BCWD #### [facility] [address] [place] [address] Hematocrit (Bld) [Volume fraction] 41.3 % Normal 37.0-47.0 [facility] Comment on above: Performed By: #### C BCWD #### [facility] [address] [place] [address] Hemoglobin (Bld) [Mass/Vol] 14.3 g/dL Normal 12.0-16.0 [facility] Comment on above: Performed By: #### C BCWD #### [facility] [address] [place] [address] Lymphocytes (Bld) [#/Vol] 3.5 10*3/uL Normal 1.0-4.8 [facility] Comment on above: Performed By: #### C BCWD #### [facility] [address] [place] [address] Lymphocytes/100 WBC (Bld) 28.2 % Normal [facility] Comment on above: Performed By: #### C BCWD #### [facility] [address] [place] [address] MCH (RBC) [Entitic mass] 30.5 pg Normal 27.0-31.3 [facility] Comment on above: Performed By: #### C BCWD #### [facility] [address] [place] [address] MCHC (RBC) [Mass/Vol] 34.6 % Normal 33.0-37.0 [facility] Comment on above: Performed By: #### C BCWD #### [facility] [address] [place] [address] MCV (RBC) [Entitic vol] 88.0 fL Normal 82.0-100.0 [facility] Comment on above: Performed By: #### C BCWD #### [facility] [address] [place] [address] Monocytes (Bld) [#/Vol] 0.8 10*3/uL Normal 0.2-0.8 [facility] Comment on above: Performed By: #### C BCWD #### [facility] [address] [place] [address] Monocytes/100 WBC (Bld) 6.8 % Normal [facility] Comment on above: Performed By: #### C BCWD #### [facility] [address] [place] [address] Neutrophils (Bld) [#/Vol] 7.7 10*3/uL Critically high 1.4-6.5 [facility] Comment on above: Performed By: #### C BCWD #### [facility] [address] [place] [address] Neutrophils/100 WBC (Bld) 62.6 % Normal [facility] Comment on above: Performed By: #### C BCWD #### [facility] [address] [place] [address] Platelets (Bld) [#/Vol] 435 10*3/uL Critically high 130-40 0 [facility] Comment on above: Performed By: #### C BCWD #### [facility] [address] [place] [address] RBC (Bld) [#/Vol] 4.69 10*6/uL Normal 4.20-5.40 [facility] Comment on above: Performed By: #### C BCWD #### [facility] [address] [place] [address] WBC (Bld) [#/Vol] 12.4 10*3/uL Critically high 4.8-10.8 [facility] Comment on above: Performed By: #### C BCWD #### [facility] [address] [place] [address] Comprehensive Metabolic Pane bebeto 11-04-2018 Anion gap [Moles/Vol] 14 mmol/L Normal 9-15 [facility] Comment on above: Order Comment: CALL [facility] tel. [phone], Potassium results called to and read back by onofre Millan RN, 11/04/2018 16:24, by [facility] Performed By: #### C MP #### [facility] [address] [place] [address] Bilirubin [Mass/Vol] 0.4 mg/dL Normal 0.2-0.7 [facility] Comment on above: Order Comment: CALL [facility] tel. [phone], Potassium results called to and read back by onofre Millan RN, 11/04/2018 16:24, by [facility] Performed By: #### C MP #### [facility] [address] [place] [address] GFR/1.73 sq M predicted among blacks MDRD (S/P/Bld) [Vol rate/Area] mL/min/{1.73_m2} Normal >60 [facility] Comment on above: Order Comment: CALL [facility] tel. [phone], Potassium results called to and read back by onofre Millan RN, 11/04/2018 16:24, by [facility] Result Comment: >60 mL/min/1.73m2 EGFR, calc. for ages 18 and older using the MDRD formula (not corrected for weight), is valid for stable renal function. Performed By: #### C MP #### [facility] [address] [place] [address] GFR/1.73 sq M.predicted MDRD (S/P/Bld) [Vol rate/Area] mL/min/{1.73_m2} Normal >60 [facility] Comment on above: Order Comment: CALL [facility] tel. [phone], Potassium results called to and read back by onofre Millan RN, 11/04/2018 16:24, by [facility] Result Comment: >60 mL/min/1.73m2 EGFR, calc. for ages 18 and older using the MDRD formula (not corrected for weight), is valid for stable renal function. Performed By: #### C MP #### [facility] [address] [place] [address] Albumin [Mass/Vol] 4.5 g/dL Normal 3.5-4.6 [facility] [place] Comment on above: Order Comment: CALL [facility] tel. [phone], Potassium results called to and read back by onofre Millan RN, 11/04/2018 16:24, by [facility] Performed By: #### C MP #### [facility] [address] [place] [address] ALP [Catalytic activity/Vol] 76 U/L Normal 40-130 [facility] Comment on above: Order Comment: CALL [facility] tel. [phone], Potassium results called to and read back by onofre Millan RN, 11/04/2018 16:24, by [facility] Performed By: #### C MP #### [facility] [address] [place] [address] ALT [Catalytic activity/Vol] 15 U/L Normal 0-33 [facility] Comment on above: Order Comment: CALL [facility] tel. [phone], Potassium results called to and read back by onofre Millan RN, 11/04/2018 16:24, by [facility] Performed By: #### C MP #### [facility] [address] [address] AST [Catalytic activity/Vol] 20 U/L Normal 0-35 [facility] [place] Comment on above: Order Comment: CALL [facility] tel. [phone], Potassium results called to and read back by onofre Millan RN, 11/04/2018 16:24, by [facility] Performed By: #### C MP #### [facility] [address] [address] Calcium [Mass/Vol] 9.9 mg/dL Normal 8.5-9.9 [facility] [place] Comment on above: Order Comment: CALL [facility] tel. [phone], Potassium results called to and read back by onofre Millan RN, 11/04/2018 16:24, by [facility] Performed By: #### C MP #### [facility] [address] [address] Chloride [Moles/Vol] 96 mmol/L Normal 95-107 [facility] [place] Comment on above: Order Comment: CALL [facility] tel. [phone], Potassium results called to and read back by onofre Millan RN, 11/04/2018 16:24, by WEBAM Performed By: #### C MP #### [facility] [address] [address] CO2 [Moles/Vol] 24 mmol/L Normal 20-31 [place], [place] Comment on above: Order Comment: CALL Graf LCED tel. [phone], Potassium results called to and read back by onofre Millan RN, 11/04/2018 16:24, by WEBAM Performed By: #### C MP #### [facility] [address] [place] [address] Creatinine [Mass/Vol] 0.67 mg/dL Normal 0.50-0.90 [place], [place] Comment on above: Order Comment: CALL Graf LCED tel. [phone], Potassium results called to and read back by onofre Millan RN, 11/04/2018 16:24, by WEBAM Performed By: #### C MP #### [facility] [address] [address] Globulin (S) [Mass/Vol] 2.8 g/dL Normal 2.3-3.5 [place], [place] Comment on above: Order Comment: CALL Graf LCED tel. [phone], Potassium results called to and read back by onofre Millan RN, 11/04/2018 16:24, by WEBAM Performed By: #### C MP #### [facility] [address] [place] [address] Glucose [Mass/Vol] 109 mg/dL Critically high 70-99 [place], [place] Comment on above: Order Comment: CALL Graf LCED tel. [phone], Potassium results called to and read back by onofre Millan RN, 11/04/2018 16:24, by WEBAM Performed By: #### C MP #### [facility] [address] [place] [address] Potassium [Moles/Vol] 3.0 mmol/L Critically low 3.4-4.9 [place], [place] Comment on above: Order Comment: CALL Graf LCED tel. [phone], Potassium results called to and read back by onofre Millan RN, 11/04/2018 16:24, by WEBAM Performed By: #### C MP #### [facility] [address] [place] [address] Protein [Mass/Vol] 7.3 g/dL Normal 6.3-8.0 [place] Comment on above: Order Comment: CALL Graf LCED tel. [phone], Potassium results called to and read back by onofre Millan RN, 11/04/2018 16:24, by WEBAM Performed By: #### C MP #### [facility] [address] [place] [address] Sodium [Moles/Vol] 134 mmol/L Low 135-144 [place], [place] Comment on above: Order Comment: CALL Graf ED tel. [phone], Potassium results called to and read back by onofre Millan RN, 11/04/2018 16:24, by WEBAM Performed By: #### C MP #### [facility] [address] [place] [address] Urea nitrogen [Mass/Vol] 8 mg/dL Normal 8-23 [place], [place] Comment on above: Order Comment: CALL Graf ED tel. [phone], Potassium results called to and read back by onofre Millan RN, 11/04/2018 16:24, by WEBAM Performed By: #### C MP #### [facility] [address] [facility] [address] Anion gap [Moles/Vol] 14 mmol/L [place] Bilirubin Ql (U) 0.4 mg/dL 0.2 - 0.7 mg/dL [place], [place] GFR >60.0 >60 [place], [place] Comment on above: >60 mL/min/1.73m2 EG FR, calc. for ages 18 and older using the MDRD formula (not corrected for weight), is valid for stable renal function. GFR Non- >60.0 >60 [place] Comment on above: >60 mL/min/1.73m2 EG FR, calc. for ages 18 and older using the MDRD formula (not corrected for weight), is valid for stable renal function. Interpretation and review of laboratory results Abnormal [place] Potassium [Moles/Vol] CALL Graf LCED tel . [phone], Potassium results called to and read back by onofre Millan RN, 11/04/2018 16:24, by TAMMY [place] Partial Thromboplastin Timeo n 11-04-2018 aPTT Coag (Bld) [Time] 27.9 s Normal 24.4-36.8 [facility] Comment on above: Result Comment: Effe ctive 09/06/2018: Please note methodology and/or reference ranges have changed. aPTT - Heparin Therapeutic Range: 74.0 - 106 seconds Performed By: #### P TT #### [facility] [address] [facility] [address] Prothrombin Timeon 9 INR Coag (PPP) [Relative time] 0.9 {INR} Normal [facility] Comment on above: Result Comment: Warf camden Therapy INR Therapeutic: 2.0-3.0 With Mechanical Valve: >2.5 Low-intensity Therapeutic Range: 1.5-2.0 Mod-intensity Therapeutic Range: 2.0-3.0 High-intensity Therapeutic Range: 2.5-3.5 HIgh-intensity Therapeutic Range: 3.0-4.0 Common Critical/Alarm Value: 5.0 Common Upper Limit Reported: 10.0 Effective 08/30/2018: Please note methodology and/or reference ranges have changed. Performed By: #### P T #### [facility] [address] [facility] [address] PT Coag (PPP) [Time] 12.1 s Low 12.3-14.9 [facility] Comment on above: Result Comment: Effe ctive 08/30/18 Please note methodology and/or reference ranges have changed. Performed By: #### P T #### [facility] [address] [place] [address] Protime-INRon 11-04-2018 INR Coag (PPP) [Relative time] 0.9 {INR} [place], [place] Comment on above: Warfarin Therapy IN R Therapeutic: 2.0-3.0 With Mechanical Valve: >2.5 Low-intensity Therapeutic Range: 1.5-2.0 Mod-intensity Therapeutic Range: 2.0-3.0 High-intensity Therapeutic Range: 2.5-3.5 HIgh-intensity Therapeutic Range: 3.0-4.0 Common Critical/Alarm Value: 5.0 Common Upper Limit Reported: 10.0 Effective 08/30/2018: Please note methodology and/or reference ranges have changed. Interpretation and review of laboratory results Abnormal [place] PT Coag (PPP) [Time] 12.1 s Low [place], [place] Comment on above: Effective 08/30/18 Please note methodology and/or reference ranges have changed. Sedimentation Rateon 019 Sedimentation Rate 12 mm Normal 0-30 [facility] Comment on above: Performed By: #### E SR #### [facility] [address] [place] [address] Sed Rate 12 mm 0 - 30 mm [place], [place] Vital Signs Date Time Vital Sign Value Performing Clinician Ivonne ledesma 12-22-2022 11:40-0400 Blood Pressure Location MIKAYLA WEISS [facility] 12-22-2022 11:40-0400 Diastolic blood pressure 84 mm[Hg] MIKAYLA WEISS [facility] 12-22-2022 11:40-0400 Systolic blood pressure 124 mm[Hg] MIKAYLA WEISS [facility] 08-06-2022 00:10-0400 Body temperature 97.3 [degF] MD Addy Daniels Work Phone: [facility] 08-06-2022 00:10-0400 Diastolic blood pressure 74 mm[Hg] MD Addy Daniels Work Phone: [facility] 08-06-2022 00:10-0400 Heart rate 80 /min MD Addy Daniels Work Phone: [facility] 08-06-2022 00:10-0400 Respiratory rate 18 /min MD Addy Daniels Work Phone: [facility] 08-06-2022 00:10-0400 SaO2% (BldA) [Mass fraction] 96 % MD Addy Daniels Work Phone: [facility] 08-06-2022 00:10-0400 Systolic blood pressure 177 mm[Hg] MD Addy Daniels Work Phone: [facility] 08-05-2022 19:51-0400 Body height 154.94 cm MD Addy Daniels Work Phone: [facility] 08-05-2022 19:51-0400 Body weight 67.6 kg MD Addy Daniels Work Phone: [facility] 11-20-2018 07:02-0400 Body Temperature 97 [degF] [facility] [place] 11-20-2018 07:02-0400 BP Diastolic 61 mm[Hg] [facility] [place] 11-20-2018 07:02-0400 BP Systolic 153 mm[Hg] [facility] [place] 11-20-2018 07:02-0400 Pulse (Heart Rate) 75 /min [facility] [place] 11-20-2018 07:02-0400 Pulse Oximetry 97 % [facility] [place] 11-20-2018 07:02-0400 Respiratory Rate 17 /min [facility] [place] 11-17-2018 05:54-0400 BMI (Body Mass Index) 27.62 kg/m2 [facility] [place] 11-17-2018 05:54-0400 Body weight 66.3 kg Mary Vega [facility] 11-15-2018 15:58-0400 Height 154.9 cm Mary Vega [facility] 11-05-2018 07:30-0400 BP Diastolic 57 mm[Hg] [facility] , [place] 11-05-2018 07:30-0400 BP Systolic 135 mm[Hg] [facility] , [place] 11-05-2018 07:30-0400 Pulse (Heart Rate) 70 /min [facility] 11-05-2018 07:30-0400 Pulse Oximetry 97 % [facility] , [place] 11-04-2018 20:06-0400 Body Temperature 98.4 [degF] [facility] 11-04-2018 20:06-0400 Respiratory Rate 16 /min [facility] 11-04-2018 14:56-0400 BMI (Body Mass Index) 27.4 kg/m2 [facility], [place] 11-04-2018 14:56-0400 Body weight 65.77 kg [facility] [place] 11-04-2018 14:56-0400 Height 154.9 cm [facility] , [place] Encounters Encounter Date Encounter Type Care Provider Facility Start: 06-29-2023 ambulatory MIKAYLA Mora ty:ERIN Hoang Start: 01-11-2023 End: 01-11-[address] [facility] Start: 12-22-2022 End: 12-23-2022 ambulatory MIKAYLA WEISS Facility:ERIN Hoang Start: 12-22-2022 End: 12-22-2022 Patient encounter procedure MIKAYLA WEISS [facility]ya Start: 10-14-2022 End: 10-14-[address] [facility] Start: 09-06-2022 End: 09-07-2022 ambulatory Raymond HARRISON Facility:ERIN Hoang Start: 08-11-2022 End: 08-12-2022 ambulatory Raymond HARRISON Facility:CD:[id number] Start: 08-10-2022 End: 08-11-2022 ambulatory Raymond HARRISON Facility:[facility] Start: 08-09-2022 End: 08-09-2022 ambulatory Addy Daniels Facility:[facility] Start: 08-09-2022 ambulatory MIKAYLA WEISS Facility :[facility] Start: 08-05-2022 End: 08-06-2022 Emergency department patient visit Camacho Saavedray Facility:[facility] Start: 08-05-2022 End: 08-06-2022 Emergency department patient visit MD Addy Daniels Work Phone: [facility] Work Phone: Start: 06-13-2022 End: 06-14-[address] ADDY DANIELS . Facility:[facility] Start: 05-19-[address] ADDY DANIELS . Facili ty:[facility] Start: 04-18-2022 End: 04-19-[address] VALERIE DARDEN Facility:[facility] Start: 04-04-2022 End: 04-04-2022 ambulatory [facility] Start: 01-30-[address] ADDY DANIELS . Facili ty:[facility] Start: 01-04-2022 End: 01-05-[address] ADDY DANIELS . Facility:[facility] Start: 12-26-2021 End: 12-29-2021 Evaluation and management of inpatient DR ADDY DANIELS . Facility:[facility] Start: 12-02-2021 End: 01-04-2022 Pre-admission assessment Alie Santos [facility] Start: 11-30-2021 End: 12-01-[address] JESUS BRUNO Facility:[facility] Start: 11-09-2021 End: 11-10-[address] CALISTA ACEVES Facility:[facility] Start: 08-06-2021 End: 08-07-[address] VALERIE DARDEN Facility:[facility] Start: 07-28-2021 End: 07-29-[address] CALISTA ACEVES Facility:[facility] Start: 06-22-2021 End: 06-22-2021 Patient encounter procedure VALERIE DARDEN [facility] Start: 11-15-2018 End: 11-20-2018 Evaluation and management of inpatient [facility] GARY [facility] Start: 11-15-2018 End: 11-20-2018 Evaluation and management of inpatient Mary Vega Work Phone: [facility] Comment on above: Spinal stenosis of l umbosacral region (Primary Dx); Impaired mobility; Vasovagal syncope Start: 11-13-2018 End: 11-15-2018 Evaluation and management of inpatient LENNY CORRAL [facility] Start: 11-13-2018 End: 11-15-2018 Patient encounter procedure LENNY Kang [facility] Start: 11-04-2018 End: 11-05-2018 Patient encounter procedure CALISTA KETAN [facility] Start: 11-04-2018 End: 11-05-2018 Emergency department patient visit Lenny Corral Work Phone: [facility] Comment on above: Lumbar radiculopathy (Primary Dx); Intractable low back pain Start: 04-19-2018 End: 04-20-2018 Patient encounter procedure DEFAULT PHYSICIAN Facility:[facility] Procedures Date Procedure Procedure Detail Performing Clinician [...] CALISTA ACEVES Start: 11-18-2018 INCENTIVE SPIROMETRY RT CALITSA ACEVES Start: 11-18-2018 INITIATE OXYGEN THER APY [...] CALISTA ACEVES Start: 11-16-2018 INCENTIVE SPIROMETRY RT CALISAT ACEVES Start: 11-16-2018 INCENTIVE SPIROMETRY RT CALISTA [...] ICAL VTE PROPHYLAXIS CALISTA ACEVES Start: 11-15-2018 EGG CANDLER EVAL AND TREAT CHRIS PRESLEY KETAN Start: [...] scan extracra nial art compl bi study [employer] Work Phone: Start: 11-15-2018 Culture bacterial quanttative colony count urine Mary Gary Work Phone: Start: 11-15-2018 Urinalysis microscopic only Mary Gary Work Phone: Start: 11-15-2018 Blood count complete auto&auto difrntl wbc CALISTA ACEVES Start: 11-15-2018 Culture bacterial bl ood aerobic w/id isolates CALISTA ACEVES Start: 11-15-2018 Microscopic examinat ion of blood, culture CALISTA ACEVES Comment on above: Performed By: #### P TT #### [facility] [address] [place] [address] Start: 11-15-2018 Urnls dip stick/tabl et [...] ACEVES Start: 11-15-2018 INCENTIVE SPIROMETRY RT CALISTA AECVES Start: 11-15-2018 PULSE OXIMETRY, CONTINUOUS CALISTA ACEVES [...] Abdomen and Pelvi s WO contrast [facility] Start: 08-05-2022 CT of abdomen and pe lvis without contrast CT abdomen pelvis wo con [facility] Start: 11-19-2019 Creatinine monitoring Creatinine mon [place], [place] Start: 11-19-2019 Potassium monitoring Potassium monit [place], [place] Start: 11-05-2019 Creatinine monitoring Creatinine [place] Start: 11-05-2019 Potassium monitoring Potassium monit [place] Start: 12-04-2018 End: 12-04-2018 Office Visit 12/04/2018 Office Visit Neurosurgery Lenny Corral MD [address] [facility], [address] [address] [employer] Start: 11-30-2018 End: 11-30-2018 Office Visit 11/30/2018 Office Visit Neurosurgery Lenny Corral MD [address] [facility], [address] [address] [employer] Start: 11-23-2018 End: 11-23-2018 Office Visit 11/23/2018 Office Visit Neurosurgery Lenny Corral MD [address] [facility], [address] [address] [employer] Start: 11-13-2018 Annual Wellness Visi t (AWV) Annual Wellness Visit (AWV) [place] Start: 10-21-2018 Influenza vaccination Flu vaccine (# 1) [place], [place] Start: 2001 DEXA (modify frequen cy per FRAX score) DEXA (modify frequency per FRAX score) [place], [place] Start: 2001 Pneumococcal 65+ yea rs Vaccine (1 of 2 - PCV13) Pneumococcal 65+ years Vaccine (1 of 2 - PCV13) [place] Start: 1986 Shingles Vaccine (1 of 2) Shingles Vaccine (1 of 2) [place] Start: 11-13-1955 DTaP/Tdap/Td vaccine (1 - Tdap) DTaP/Tdap/Td vaccine (1 - Tdap) [place], [place] Start: 1946 Lipid screen Lipid screen [place], [place] Culture Blood #1 Culture Blood # 1 Microbiology STAT 11/15/2018 4:37 PM EDT [place] Culture Blood #2 Culture Blood # 2 Microbiology STAT 11/15/2018 4:37 PM EDT [place] End: 11-05-2018 EKG 12 Lead EKG 12 Lead ECG Routine One Time for 1 Occurrences starting 11/05/2018 until 11/05/2018 [place] Comment on above: One Time for 1 Occur rences starting 11/05/2018 until 11/05/2018 Incentive spirometry Incentive s pirometry Respiratory Care Routine Every 2hr while awake until discontinued starting 11/15/2018 [place] Comment on above: Every 2hr while awak e until discontinued starting 11/15/2018 Initiate Oxygen Ther apy Protocol Initiate Oxygen Therapy Protocol Respiratory Care Routine Daily until discontinued starting 11/15/2018 [place] Comment on above: Daily until disconti nued starting 11/15/2018 Nonrebreather mask oxygen Nonrebreather mask oxygen Respiratory Care Routine As directed - RT (PRN) until discontinued starting 11/05/2018 [place] Comment on above: As directed - RT (AK N) until discontinued starting 11/05/2018 Patient Education Kidney Stones (DC) [facility] Work Phone: Patient referral [facility] Work Phone: End: 11-15-2018 Speech and language therapy regime Speech language pathology evaluation EGG CANDLER Routine One Time for 1 Occurrences starting 11/15/2018 until 11/15/2018 [place] Comment on above: One Time for 1 Occur rences starting 11/15/2018 until 11/15/2018 End: 11-04-2018 Urine Reflex to Culture Urine Reflex to Culture Lab STAT One Time for 1 Occurrences starting 11/04/2018 until 11/04/2018 [place] Comment on above: One Time for 1 Occur rences starting 11/04/2018 until 11/04/2018 Immunizations Immunization Date Immunization Notes Care Provider Laxmi romero 12-20-2021 influenza virus vaccine, unspecified formulation MIKAYLA ABDULLAHI [facility] 12-21-2020 influenza virus vaccine, unspecified formulation MIKAYLA ABDULLAHI [facility] 01-09-2019 influenza virus vaccine, unspecified formulation MIKAYLA ABDULLAHI [facility] 11-29-2017 influenza virus vaccine, unspecified formulation MIKAYLA ABDULLAHI [facility] 01-02-2017 influenza virus vaccine, unspecified formulation MIKAYLA ABDULLAHI [facility] 12-06-2016 influenza virus vaccine, unspecified formulation MIKAYLA ABDULLAHI [facility] 12-11-2014 influenza virus vaccine, unspecified formulation MIKAYLA ABDULLAHI [facility] Payers Date Payer Category Payer Self-pay [id number] 2021 Unknown [id number] 2018 Medicare MEDICARE MEDICAR E PART A AND B xxxxxxxxxxx 2018-Present [phone] [place] [address] xxxxxxxxxxx [id number] 2014 Medicare [id number] 2014 Medicare MEDICARE MEDICAR E PART A AND B xxxxxxxxxx 2014-Present [phone] [address] [place] [address] xxxxxxxxxx [id number] 2014 Unknown [id number] 2014 Unknown 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 [address] xxxxxxxxxxxx 2014-Present [phone] [address] [place] [address] xxxxxxxxxxxx [id number] [id number] 1959 Medicare [id number] 1959 Self-pay [id number] 1959 Unknown [id number] 1936 Unknown [id number] 2.16.840.1.866561.3.579.2.647 1936 Unknown [id number] 2.16.840.1.950651.3.579.2.182 1936 Unknown [id number] 2.16.840.1.729830.3.579.2.182 1936 Unknown [id number] 2.16.840.1.061683.3.579.2.182 1936 Unknown [id number] 2.16.840.1.079558.3.579.2.182 1936 Unknown [id number] 2.16.840.1.144992.3.579.2.593 1936 Unknown [id number] 2.16.840.1.782470.3.579.2.593 1936 Unknown [id number] 2.16.840.1.099895.3.579.2.593 1936 Unknown [id number] 2.16.840.1.249176.3.579.2.593 1936 Unknown [id number] 2.16.840.1.314262.3.579.2.593 1936 Unknown [id number] 2.16.840.1.045204.3.579.2.593 1936 Unknown [id number] 2.16.840.1.670322.3.579.2.593 1936 Unknown [id number] 2.16.840.1.505755.3.579.2.593 1936 Unknown [id number] 2.16.840.1.993481.3.579.2.593 1936 Unknown [id number] 2.16.840.1.838023.3.579.2.593 1936 Unknown [id number] 2.16.840.1.160773.3.579.2.727 1936 Unknown [id number] 2.16.840.1.466235.3.579.2.727 1936 Unknown [id number] 2.16.840.1.557918.3.579.2.727 1936 Unknown [id number] 2.16.840.1.374762.3.579.2.727 1936 Unknown [id number] 2.16.840.1.866887.3.579.2.727 1936 Unknown [id number] 2.16.840.1.173452.3.579.2.727 Unknown Unknown [id number] 2.16.840.1.182942.3.579.2.531 Unknown [id number] 2.16.840.1.499865.3.579.2.531 Social History Date Type Detail Facility Start: 11-04-2018 End: 12-22-2022 Tobacco smoking status NHIS Never smoker [facility] Start: 11-04-2018 End: 11-19-2018 Alcohol intake Not Currently [place] Sex Assigned At Not on file [place] Tobacco smoking status No Smokin g Status Entered [facility] Start: 1935 Sex Assigned At Female F [facility] Tobacco smoking status Never [facility] Medical Equipment Procedure Code Equipment Code Equipment Origin al Text Equipment Identifier Dates Graft Canc Chip 30cc [id number] - [id number] Start: 11-13-2018 Graft Canc Chip [id number] 15cc - [id number] Start: 11-13-2018 Sys Fix Reline 0 x Conn 40 50mm 5.5lp Adj [id number] Start: 11-13-2018 Jose Armando-Graft Infuse Kt Med [id number] Start: 11-13-2018 Impl Spine Cage Kamila Crv [id number] 8deg [id number] Start: 11-13-2018 Impl Spine Cage Kamila Crv [id number] 8deg [id number] Start: 11-13-2018 Screw Polyaxial Reline O 2s 6.0x55mm [id number] Start: 11-13-2018 Screw Lk Reline Opn Tulip 5.5mm [id number] Start: 11-13-2018 Impl Spine Harish Reline-O Lrdtc 5.5x70mm [id number] Start: 11-13-2018 Impl Spine Harish Reline-O 5.5x75mm [id number] Start: 11-13-2018 Functional Status Date Assessment Result Facility 12-22-2022 Functional Status N/A [facility] Clinical Notes 04-04-2022 to 01-11-2023 Note Date & Type Note Facility 01-11-2023 Note Noted 7 beat run of NSVT on 1 week holter monitor, along with SVT, PVCs Recommended to continue coreg 25 mg bid, will place 30 day monitor, and obtain treadmill cardiolite stress test for ischemic evaluation. [facility] 01-11-2023 Note Pt reports that she has had 5 syncopal episodes since this Summer- some while having a BM, and other episodes while just up and walking. [facility] 01-11-2023 Note Will monitor with ro utine echocardiogram annually unless pt has concerning symptoms [facility] 01-11-2023 Note Recommended to gorge nue ASA and pravastatin [facility] 01-11-2023 Note Hypertension is stab le Reviewed B/P log and typically in the mornings her b/p with well controlled 120's/70-80, and in the evenings can be up to 140/80 Continue all meds and will add toprol [facility] 01-11-2023 Note Continue pravastatin [facility] 01-11-2023 Note Will monitor with ro utine echocardiogram annually unless pt has concerning symptoms [facility] 01-11-2023 Note Will monitor with ro utine echocardiogram annually unless pt has concerning symptoms [facility] 01-11-2023 Note Patient here for [...] All other systems reviewed and are negative. [facility] 01-11-2023 Note [facility] [...] called and was evaluated in ED at [facility]. Admits she has had a couple syncopal episodes in the bathroom while having a BM- last one was at [employer]. States she also has had a couple while just up and walking- normal Day to Day activity. Daughter states that pt is usually out for about 1 minute. Of note patient was direct admitted to the [facility] end of August for electrolyte imbalances low sodium, low potassium, and acute anemia. She was evaluated at [facility] in October for ABD pain/ syncope, [...] The patient states she was shopping in [place] when she felt the need to have [...] approximately 5 years ago at [facility]. HPI - Altered Mental Status General Chief [...] was someone in the bathroom in the congregation and she have to go back and [...] 3 levothyroxine (Syn (more content not included)... [facility] 12-22-2022 Hospital Discharge instructions Patient [...] transplant. Follow these instructions at home: Take orfi-wkh-lesxixn and prescription medicines only as told by [...] provider. Document Revised: 05/26/2020 Document Reviewed: 05/26/2020 [employer] Patient Education 2022 achvr. Follow Up Care 09/06/2022 13:10:43 With:ABDULLAHI NOONAN, MIKAYLA Pereira, URL Address: [address] [address] [phone] When: Unknown Comments:6 mos w/ renal fxn (per PCP) [facility] 10-25-2022 Note Pt message/ call [...] needs to call for appointment Lesly Alaniz [employer]IST Division of Cardiology, [facility]- [phone] Pager- [phone] Email- [email or web address] 10-14-2022 Note Stable and non pitting currently [facility] 10-14-2022 Note Currently stable Pt to call for any recurrent syncope or concerns [facility] 10-14-2022 Note Mild on recent echo No concerning symptoms [facility] 10-14-2022 Note Continue ASA and statin [facility] 10-14-2022 Note Hypertension is unco ntrolled 160/75- admits this is where her b/p is at home Increase coreg to 25 mg bid, continue losartan 100 mg, hydrochlorothiazide 25 mg, and amlodipine 10 mg [facility] 10-14-2022 Note Continue pravastatin [facility] 10-14-2022 Note No concerning sympto ms Will continue to monitor with echocardiogram [facility] 10-14-2022 Note No concerning sympto ms Will continue to monitor with echocardiogram [facility] 10-14-2022 Note Patient here c/o LE edema. Says today they aren't as bad, but she states they're hard and sometimes painful. She has not had lab work since [facility] stay in July 2022. She denies chest pain, lightheadedness, and palpitations. Review of Systems Cardiovascular: Positive for dyspnea on exertion and leg swelling. Hematologic/Lymphatic: Bruises/bleeds easily. All other systems reviewed and are negative. [facility] 10-14-2022 Note [facility] C[facility]Y PROGR [...] note patient was direct admitted to the [facility] end of August for electrolyte imbalances [...] and non pitting currently RTC 3-6 months [facility] 04-04-2022 Note [facility] Cardiology Clinic Note Chief Complaint: Patient [...] p.o. twice dominic (more content not included)... [facility] Evaluation + Plan note No data available for this section [facility] Evaluation + Plan note Future Appointments Appointment Date:06/29/2023 09:30:00 AM Scheduled Provider:MIKAYLA WEISS PA-C Location:[facility] Appointment Type:URO Office Visit [facility] Evaluation note No assessment inform ation available [facility] Work Phone: Hospital Discharge instructions No data available for this section [facility] Hospital Discharge instructions Additional Instructions Take [...] fevers or chills or intractable nausea vomiting. [facility] Work Phone: Progress note No data available for this section [facility] Summary Purpose Family History No Family History Records FoundNo Family History Records FoundNo Family History Records FoundNo Family History Records Found No data available for this section No Family History Records FoundNo Family History Records Found Advance Directives No Advanced Directives Records FoundDocuments on File Type Date Recorded Patient Director Park Expl anation Advance Directives and Living Will Power of Associate Latest Code Status on File Code Status Date Activated Date Inactivated Comments Full Code 11/05/2018 6:34 PM Full Code 11/04/2018 5:08 PM 11/05/2018 6:34 PM Documents on File Type Date Recorded Patient Director Park Expl anation Advance Directives and Livin g Will Advance Directives and Livin g Will 11/06/2018 1:08 AM AD info sheets Power of Associate Latest Code Status on File Code Status [...] sent through Care Everywhere. * Back Pain (Turkish) documented in this encounter* Discharge Instr - [...] most local grocery stores, pharmacies, and chain [employer]-stores. ? If you have any questions about [...] Contact Information Primary Emergency Contact: Andrea Madrid [facility] Mobile Relation: Spouse Secondary Emergency Contact: Liliya Townsend Mobile Relation: Child Children'S Program Coordinator needed? No Past Surgical History: Past Surgical History: Procedure Laterality Date APPENDECTOMY BACK SURGERY CHOLECYSTECTOMY LUMBAR FUSION N/A 11/13/2018 PLIF L 3-4-5 DECOMPRESSION L3, L4 performed by Lenny Corral MD at [facility] OR [facility] Right Immunization History: There is [...] Assisted Dressing Independent Toileting Independent Feeding Independent Insurance Application Investigator Independent Med Delivery whole Wound Care Documentation [...] Video (Video Swallowing Test): {Done Not Done Date:[id number]} Treatments at the Time of Hospital Discharge: Respiratory Treatments: Oxygen Therapy: is not on home oxygen therapy. Ventilator: - No ventilator support Rehab Therapies: Physical Therapy and Occupational Therapy Weight Bearing Status/Restrictions: No weight bearing restirctions Other Medical Equipment (for information only, NOT a DME order): walker Other Treatments: Patient's personal belongings (please select all that are sent with patient): {[facility] Belongings:[id number]} RN SIGNATURE: MANAGEMENT/SOCIAL WORK SECTION Inpatient Status Date: Patient was admitted to Inpatient Acute Rehab 11/15/18 Readmission Risk Assessment Score: Readmission Risk Risk of Unplanned Readmission: 12 Discharging to Facility/ Agency Name: Karan Sosa Address: Fax: Dialysis Facility (if applicable) Name: Address: Dialysis Schedule: Phone: Fax: Fire Chief Deputy/Biostatistics Teacher signature: ICIAN SECTION Prognosis: Good Condition at [...] Date: 11/20/2018 Patient Name: Hiram Madrid Account: [id number] : 1935 (83 y.o.) Room: [place] [address] Diagnosis: Impaired mobility and gait secondary to [...] L4 performed by Lenny Corral MD at [facility] Right Precautions: Restrictions/Precautions: Fall [...] to increasing pain) Transfer Assistance: Independent Active Energy Efficiency Finance Manager: Yes Mode of Transportation: Car 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 Leisure & Hobbies: Cooking, reading, needlepoint Additional Comments: 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, has been relying more on dtr and spouse due toworsening weakness past few weeks Current Functional Status: ADL Equipment Provided: Sock aid, Parimutuel Cashier Feeding: Modified independent Grooming: Independent UE Bathing: [...] glasses for reading Hearing Hearing: Exceptions to [facility] Hearing Exceptions: Hard of hearing/hearing concerns, Right [...] PM Yarely Gordon 11/20/2018 12:35 PM EDT [facility] Rehabilitation MUSIC THERAPY Date: 11/20/2018 Patient Name: Hiram Madrid Date of : 1935 (83 y.o.) Gender: female Diagnosis: Impaired mobility and gait secondary to NTSCI secondary to lumbar stenosis, radiculopathy, and spondylosis Referring Practitioner: Dr. Coker RESTRICTIONS/PRECAUTIONS: Restrictions/Precautions: Fall Risk Vision: Impaired Hearing: Exceptions to [facility] Hearing Exceptions: Hard of hearing/hearing concerns, Right [...] interested in having music therapy again. [] [facility] will attempt to see pt again another day, if time allows. [x] Pt's planned d/c date is before [facility] is scheduled on unit again. [] Pt NOT interested in having music therapy again. [facility] 11/20/2018 * Roselyn Schroeder OTA - 11/20/2018 9:59 AM EDT Occupational Therapy Facility/Department: [facility] Daily Treatment Note NAME: [...] 11/20/2018 9:55 AM EDT Occupational Therapy Facility/Department: [facility] Daily Treatment Note NAME: [...] device (slide rail) Walk: 6 - Modified Faulk Walks at least 150 feet with an ambulatory device, orthosis or prosthesis OR requires extra amount of time OR there is concern for safety Distance Walked: 200' Wheel Chair: 0 - Activity Not Assessed/Does Not Occur Stairs: 6 - Modified Faulk Safely goes up and down at least [...] from Dr. Ellis Holguin D.O., PM&R Attending [phone] [facility] [place] * Khanh White LPN - 11/19/2018 6:00 [...] 11/19/2018 2:05 PM EDT Occupational Therapy Facility/Department: [facility] Daily Treatment Note NAME: [...] EDT Physical Therapy Rehab Treatment Note Facility/Department: [facility] Room: [place] [address] NAME: Hiram Madrid : 1935 (83 y.o.) [...] EDT Progress Note Patient: Hiram Madrid Unit/Bed: [place] [address] Date of : 1935 Acct: [id number] Admitting Diagnosis: Impaired mobility [Z74.09] Spinal stenosis [...] and tentative discharge home tomorrow. Follows with coffee sampler in [place]. 11/18/18: called by staff engineer regarding tachycardia. Pt was unaware of tachycardia. [...] to have + orthostatics. Denies hx of NE, CHF or arrhythmia. Follows with a coffee sampler from [place] for carotid artery disease and cardiac murmur. [...] to DC home and F/U with regular coffee sampler as outpatient Attending Supervising Physician's Attestation Statement The patient is a 83 y.o. female. I have performed a history and physical examination of the patient. I discussed the case with the physician research program assistant. I reviewed the patient's Past Medical [...] EDT Physical Therapy Rehab Treatment Note Facility/Department: [facility] Room: [place] [address]- NAME: Hiram Madrid : 1935 (83 y.o.) [...] EDT Physical Therapy Rehab Treatment Note Facility/Department: [facility]: [...] Neuromuscular Education Neuromuscular Comments: Pizano Initiated: other MANAGER STATISTICAL PROGRAMMING finished it: pt scored a 42/56. Bed [...] education: 10 Therapeutic ex: 0 Mikayla Lindsey, MANAGER STATISTICAL PROGRAMMING, 11/19/18 at 11:59 AM * Khanh White [...] Unit/Bed: R238/R238-01 Date of : 1935 Acct: [id number] Admitting Diagnosis: Impaired mobility [Z74.09] Spinal stenosis of lumbosacral region [M48.07] Admit Date: 11/15/2018 Hospital Day: 4 Current Medications: Scheduled Meds: cephALEXin 500 mg Oral 3 times per day [id number]-[id number] Topical BID enoxaparin 30 mg Subcutaneous Daily [...] woman from homewith spouse who presents to [facility] with the above deficits [...] ms QTc Calculation (Bazett) 463 ms P [place] 58 degrees R [place] -11 degrees T [place] 5 degrees Xr Chest Standard (2 Vw) [...] from Dr. Ellis Holguin D.O., PM&R Attending [address] [place] [address] * Rachael Graf LPN - 11/18/2018 4:39 [...] and no guarding. Musculoskeletal: Back: Urine Culture [[id number]] Collected: 11/15/18 190 Order Status: Completed Specimen: Urine, clean catch Updated: 11/17/18 0728 Urine Culture, Routine No growth 24 hours Narrative: ORDERED BY: ADDY COKER SOURCE: Urine Clean Catch COLLECTED: 11/15/18 19:05 ANTIBIOTICS AT DI.: RECEIVED : 11/15/18 19:05 Culture Blood #2 [[id number]] Collected: 11/15/18 1637 Order Status: Completed Specimen: Blood Updated: 11/16/18 1815 Culture, Blood 2 No Growth to date. Any change in status will be called. Narrative: ORDERED BY: ADDY COKER SOURCE: Blood COLLECTED: 11/15/18 16:37 ANTIBIOTICS AT DI.: RECEIVED : 11/15/18 16:42 Culture Blood #1 [[id number]] Collected: 11/15/18 1637 Order Status: Completed Specimen: [...] Unit/Bed: R238/R238-01 Date of : 1935 Acct: [id number] Admitting Diagnosis: Impaired mobility [Z74.09] Spinal stenosis [...] L4 performed by Lenny Corral MD at [facility] OR [facility] Right History reviewed. No pertinent [...] on phone: None Gets together: None Attends scientologist service: None Active member of club or organization: None Attends meetings of clubs or organizations: None Relationship status: None Intimate partner violence: Fear of current or ex partner: None Emotionally abused: None Physically abused: None Forced sexual activity: None Other Topics Concern None Social History Narrative None Subjective/HPI: called by staff engineer regarding tachycardia. Pt was unaware of tachycardia. [...] woman from homewith spouse who presents to [facility] with the above deficits [...] up labs. Blanca Holguin D.O., PM&R Attending [phone] [place] [address] [place] * Dana Craig, JANET - 11/17/2018 5:45 PM EDT Monitor room called, said pt had about 18 sec run of svt up to 218; notified cardio. * Faye Summers PTA - 11/17/2018 4:07 PM EDT Physical Therapy Rehab Treatment Note Facility/Department: [facility] NAME: [...] 11/17/2018 2:51 PM EDT Occupational Therapy Facility/Department: [facility] Daily Treatment Note NAME: [...] EDT Physical Therapy Rehab Treatment Note Facility/Department: [facility] Room: R238/R238-01 NAME: Hiram [...] EDT Physical Therapy Rehab Treatment Note Facility/Department: [facility] NAME: [...] 11/17/2018 8:43 AM EDT Occupational Therapy Facility/Department: [facility] Daily Treatment Note NAME: [...] at below status. ADL Equipment Provided: Sock aid;Parimutuel Cashier Grooming: Independent UE Bathing: Setup LE Bathing: [...] woman from homewith spouse who presents to [facility] with the above deficits [...] consult,check dopplers Blanca Holguin D.O., PM&R Attending [phone] [facility] [place] * Jessica Irvin, OTR/L - 11/16/2018 4:14 PM EDT Occupational Therapy Facility/Department: [facility] Daily Treatment Note NAME: Hiram Madrid : 1935 Date of Service: 11/16/2018 Discharge Recommendations: Continue to assess pending progress OT Equipment Recommendations Other: Continue to assess Assessment Performance deficits / Impairments: Decreased functional mobility ;Decreased ADL status;Decreased strength;Decreased balance;Decreased endurance;Decreased high- level IADLs Assessment: Pt. is an 83 year old woman from home with spouse who presents to [facility] with the above deficits [...] Pain: Yes Objective The patient completed the [facility] Mental Status (UMS) Examination [...] Unit/Bed: R238/R238-01 Date of : 1935 Acct: [id number] Admitting Diagnosis: Impaired mobility [Z74.09] Spinal stenosis of lumbosacral region [M48.07] Admit Date: 11/15/2018 Hospital Day: 1 Current Medications: Scheduled Meds: [START ON 11/17/2018] enoxaparin 40 mg Subcutaneous Daily [id number]-rpgcpsmsmm-[id number] Topical BID docusate sodium 100 mg Oral [...] to have + orthostatics. Denies hx of NE, CHF or arrhythmia. Follows with a coffee sampler from [place] for carotid artery disease and cardiac murmur. [...] L4 performed by Lenny Corral MD at [facility] Right Social History Social [...] on phone: None Gets together: None Attends scientologist service: None Active member of club or [...] mg 100 mg Oral Daily Shyla Vizcaino, SPECIAL EFFECTS DESIGNER - INTERLINE CLERK oxyCODONE-acetaminophen (PERCOCET) 5-325 MG per tablet 1 tablet 1 tablet Oral Q4H PRN Shylapresley Vizcaino, SPECIAL EFFECTS DESIGNER - INTERLINE CLERK potassium chloride (KLOR-CON) packet 20 mEq 20 mEq Oral BID Shyla Renato Vizcaion, SPECIAL EFFECTS DESIGNER - INTERLINE CLERK pravastatin (PRAVACHOL) tablet 80 mg 80 mg Oral Daily Shyla Renato Vizcaino, SPECIAL EFFECTS DESIGNER - INTERLINE CLERK polyethylene glycol (GLYCOLAX) packet 17 g 17 [...] EDT Physical Therapy Rehab Treatment Note Facility/Department: [facility] Room: [facility] NAME: Hiram Madrid : 1935 (83 [...] education: 0 Therapeutic ex: 23 Mikayla Lindsey MANAGER STATISTICAL PROGRAMMING, 11/16/18 at 3:57 PM * Rhiannon Blank [...] from home with spouse who presents to [facility] with the above deficits [...] to increasing pain) Transfer Assistance: Independent Active Energy Efficiency Finance Manager: Yes Mode of Transportation: Car Type of [...] OTR/L Jessica Irvin OTR/Lloyd * Jena Vega, MANAGER STATISTICAL PROGRAMMING - 11/16/2018 10:35 AM EDT Physical Therapy Rehab Treatment Note Facility/Department: [facility] Room: [place] [address] NAME: Hiram Madrid : 1935 (83 y.o.) [...] 11/16/18 at 11:10 AM * Jessenia Gordon, RN CHRONIC - 11/16/2018 9:35 AM EDT [facility] Rehabilitation RECREATIONAL THERAPY Initial Evaluation Date: 11/16/2018 [...] hearing in left ear) Patient seen at: [phone] Recreation Therapist received referral, chart reviewed and [...] her flower bed. 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, [...] to initiate log roll senior living goals long term acute care registered nurse goal 1: pt to be indep with bed mobility senior living goal 2: pt to be indep with bed transfers long term acute care registered nurse goal 3: pt to [id number] ft with supervision long term acute care registered nurse goal 4: pt to navigate 4 steps with SBA long term acute care registered nurse goal 5: 30/56 for Pizano balance testing ELOS: Plan weeks: 2 Therapy Time: Individual Time In 1000 Time Out 1030 Minutes 30 Lakisha Trevino, PT, 11/16/18 at 12:00 PM * Marybel Ackerman, [facility] - 11/15/2018 11:29 PM EDT Tashia Stark [...] puffs by inhalation with spacer [] Ipratropium [place] 0.02% unit dose by aerosol Ipratropium [place] MDI 2 puffs by inhalation with spacer [] Duoneb (Ipratropium + Albuterol) unit dose by aerosol Ipratropium MDI + Albuterol MDI 2 puffs byinhalation w/spacer MDI to Aerosol [] Albuterol Sulfate MDI Albuterol Sulfate 0.083% unit dose by aerosol [] Levalbuterol MDI 2 puffs by inhalation Levalbuterol 1.25 mg unit dose by aerosol [] Ipratropium [place] MDI by inhalation Ipratropium [place] 0.02% unit dose by aerosol [] Combivent (Ipratropium + Albuterol) MDI by inhalation Duoneb (Ipratropium + Albuterol) unit doseby aerosol Treatment Assessment [Frequency/Schedule]: Change frequency to: ACCUNEB Q4 PRN per Protocol, P&T, [facility] Points 0 1 2 3 4 Pulmonary [...] of lumbosacral region Impaired mobility Vasovagal syncope [facility] [address] [place] [address] Chief Complaint and Reason for Visit Chief Complaint SYNCOPE Additional Source Comments INFORMATION SOURCE (unrecogn ized section and content) DATE CREATED AUTHOR 04/20/[address] [facility] DATE CREATED AUTHOR AUTHOR'S ORGANIZ ATION 11/24/2018 [facility] DATE CREATED AUTHOR AUTHOR'S ORGANIZ ATION 06/14/2022 [facility] DATE CREATED AUTHOR AUTHOR'S ORGANIZ ATION 08/21/2022 [facility] DATE CREATED AUTHOR AUTHOR'S ORGANIZ ATION 12/23/2022 [facility] DATE CREATED AUTHOR AUTHOR'S ORGANIZ ATION 01/13/2023 [facility] Reason for Visit (unrecogniz ed section and content) Reason Comments Back Pain Left low back pain r adiates down left leg. Pain flared up last monday Status Reason Specialty Diagnoses / Procedures Referre d By Contact Referred To Contact Diagnoses Intractable back pain Lenny Corral MD [address], [address] [place] [address] [facility] Patient Care team informatio n (unrecognized section [...] BE BASED ON THE PRIMARY CLINICAL RECORDS. [facility] [employer] [facility]. provides no warranty or guarantee of the accuracy or completeness of information in this document.
--- NOTE | 2023-03-28 06:04 | ED_ITS ---
HPI - General Adult General Chief complaint: Nausea/Vomiting/Diarrhea Stated complaint: nausea hypertension Time Seen by Provider: 03/28/23 06:04 Source: patient and family Mode of arrival: Wheelchair Limitations: no limitations History of Present Illness HPI narrative: complains of feeling ill the past couple of days. Nausea and waves of her whole body feeling hot. her BP also elevated. No vomiting, chest pain, abdominal pain or dyspnea Related Data Home Medications Medication Instructions Recorded Confirmed amlodipine 10 mg tablet 10 mg PO QDAY 08/10/22 03/28/23 levothyroxine 88 mcg tablet 88 mcg PO QDAY 08/10/22 03/28/23 losartan 100 mg tablet 100 mg PO QDAY 08/10/22 03/28/23 potassium chloride 20 mEq 20 meq PO TID 08/10/22 03/28/23 tablet,extended release pravastatin 80 mg tablet 80 mg PO QDAY 08/10/22 03/28/23 carvedilol 25 mg tablet 25 mg PO Q12H 02/10/23 03/28/23 magnesium oxide 400 mg (241.3 mg 400 mg PO BID PRN constipation 02/10/23 03/28/23 magnesium) tablet Previous Rx's Medication Instructions Recorded pantoprazole 40 mg tablet,delayed 40 mg PO DAILY #30 tabs 08/17/22 release (Protonix) Allergies Allergy/AdvReac Type Severity Reaction Status Date / Time atorvastatin Allergy Severe HIVES Verified 03/28/23 05:53 prednisone Allergy Severe Rash Verified 03/28/23 05:53 Review of Systems ROS Status of ROS 10 or more systems reviewed and unremark able except as noted in history and below PFSH PFSH Medical History Surgical History Family History Mother Family history of CHF (congestive heart failure) Father Lupus Brother Family history of myocardial infarction Family history of stroke Other Arthritis Family history of hypertension Social History Within the past year, how often did you have a drink containing alcohol: never Score interpretation: A score less than 3 is consistent with normal alcohol consumption. 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 Highest level of school completed/degree received: 8th grade Are you now , , , , never or living with a partner: In a typical week, how many times do you talk on the telephone with family, friends, or neighbors: 3 or more times per week How often do you get together with friends or relatives: 3 or more times per w [place] How often do you attend tenriism or confucianist services: 4 or more times per year Do you belong to any clubs or organizations such as tenriism groups unions, [employer] or athletic groups, or school groups: yes Total score: 3 Score interpretation: A score of greater than or equal to 2 indicates the lowest level of social isolation. Little interest or pleasure in doing things: not at all Feeling down, depressed, or hopeless: not at all Feel stressed/tense/nervous/anxious/difficulty sleeping: not at all Life stressors: recent of family or friend Do you think of yourself as: straight/heterosexual Gender Identity: female Exam Constitutional Vital Signs, click to edit/add: Last Vital Signs Temp 98.2 F 03/28/23 05:49 Pulse 88 03/28/23 05:49 Resp 18 03/28/23 05:49 BP 168/80 H 03/28/23 05:49 Pulse Ox 95 03/28/23 05:49 O2 Del Method Room Air 03/28/23 05:49 Common normals: no apparent distress, average body habitus, oriented x3, no limitations, healthy appearing, alert and well nourished [facility] Common normals: normocephalic and head/scalp atraumatic Eye Common normals: PERRL, EOMs intact bilaterally and conjunctivae normal Respiratory Common normals: normal respiratory effort, no retractions, no use of accessory muscles and clear to auscultation bilaterally Cardio Common normals: regular rate, regular rhythm, S1 normal heart sound and S2 normal heart sound GI Common normals: Normal to inspection, nondistended, normoactive bowel sounds present, soft to palpation and non-tender Extremity Common normals: normal to inspection and full ROM Neuro Common normals: oriented x3, CN's II-XII intact bilaterally, moves all extremities, no focal motor deficits and no sensory deficits noted Psych Appearance: grossly normal Course Vital Signs Vital signs: Vital Signs Temperature 98.2 F 03/28/23 05:49 Pulse Rate 88 03/28/23 05:49 Respiratory Rate 18 03/28/23 05:49 Blood Pressure 168/80 H 03/28/23 05:49 Pulse Oximetry 95 03/28/23 05:49 Oxygen Delivery Method Room Air 03/28/23 05:49 Temperature 98.2 F 03/28/23 05:49 Pulse Rate 88 03/28/23 05:49 Respiratory Rate 18 03/28/23 05:49 Blood Pressure 168/80 H 03/28/23 05:49 Pulse Oximetry 95 03/28/23 05:49 Oxygen Delivery Method Room Air 03/28/23 05:49 Medical Decision Making MDM Narrative Medical decision making narrative: patient presents with nonspecific symptoms of nausea and a sensation of a wave of feeling hot that comes and goes. No associated chest or abdominal pain and she has not vomited. Her BP is elevated. Her labs return with hypokalemia and hyponatremia. Potassium supplement ordered as well as IV hydration. EKG with NSR and RBBB. Labetalol ordered for her BP. She does not appear to be in any distress. labs pending at change of shift. Will transfer care to Dr Michaud to review labs and patient's response and disposition patient Lab Data Labs: Lab Results 03/28/23 Range/Units 05:55 WBC 12.3 H (4.0-11.0) 10^3/uL RBC 4.30 (4.20-5.40) 10^6/uL Hgb 13.8 (12.0-16.0) g/dL Hct 38.9 (36.0-48.0) % MCV 90.5 (81.0-99.0) fL MCH 32.1 (26.7-34.0) pg MCHC 35.5 H (29.9-35.2) g/dL RDW 12.7 (11.0-15.0) % Plt Count 440 (150-450) 10^3/uL MPV 8.2 L (9.5-13.5) fL Neut % (Auto) 74.3 (43.0-75.0) % Lymph % (Auto) 15.4 L (20.5-60.0) % Andrews % (Auto) 8.5 (1.7-12.0) % Eos % (Auto) 0.6 L (0.9-7.0) % Baso % (Auto) 0.5 (0.2-2.0) % Neut # (Auto) 9.2 H (1.4-6.5) 10^3/uL Lymph # (Auto) 1.9 (1.2-3.8) 10^3/uL Andrews # (Auto) 1.0 H (0.3-0.8) 10^3/uL Eos # (Auto) 0.1 (0.0-0.7) 10^3/uL Baso # (Auto) 0.1 (0.0-0.1) 10^3/uL Abs Immat Gran (auto) 0.08 H (0.00-0.03) 10^3/uL Imm/Tot Granulo (auto) 0.7 H (0.0-0.5) % Sodium 123 L* (136-145) mmol/L Potassium 3.0 L (3.5-5.1) mmol/L Chloride 86 L (98-107) mmol/L Carbon Dioxide 27.0 (21.0-32.0) mmol/L Anion Gap 13.0 BUN 9.0 (7.0-18.0) mg/dL Creatinine 0.78 (0.55-1.02) mg/dL Est GFR ( Amer) >60 (>=60) Est GFR (Non-Af Amer) >60 (>=60) BUN/Creatinine Ratio 11.5 Glucose 140 H (74-106) mg/dL Calcium 9.4 (8.5-10.1) mg/dL Total Bilirubin 0.9 (0.2-1.0) mg/dL AST 17 (15-37) U/L ALT 22 (14-59) U/L Alkaline Phosphatase 77 (46-116) U/L Troponin I High Sens 11.0 (4.0-51.3) pg/mL NT-Pro-B Natriuret Pep 166.0 (<=1800.0) pg/mL Total Protein 7.8 (6.4-8.2) g/dL Albumin 3.7 (3.4-5.0) g/dL Globulin 4.1 g/dL Albumin/Globulin Ratio 0.9 Discharge Plan Discharge Chief Complaint: Nausea/Vomiting/Diarrhea Clinical Impression: Acute hyponatremia, Hypokalemia Patient Disposition: Still a Patient Prescriptions / Home Meds: No Action amlodipine 10 mg tablet 10 mg PO QDAY levothyroxine 88 mcg tablet 88 mcg PO QDAY losartan 100 mg tablet 100 mg PO QDAY pravastatin 80 mg tablet 80 mg PO QDAY potassium chloride 20 mEq tablet extended release 20 meq PO TID pantoprazole [Protonix] 40 mg tablet,delayed release (DR/EC) 40 mg PO DAILY Qty: 30 11RF carvedilol 25 mg tablet 25 mg PO Q12H magnesium oxide 400 mg (241.3 mg magnesium) tablet 400 mg PO BID PRN (Reason: constipation) Referrals: Addy Clemente MD [Primary Care Provider] - 1 week
[2023-03-28 06:12] LABS: Basophils Absolute Auto 0.1 10^3/uL (0.0-0.1); Basophils Percent Auto 0.5 % (0.2-2.0); Eosinophils Absolute Auto 0.1 10^3/uL (0.0-0.7); Eosinophils Percent Auto 0.6 % (0.9-7.0); Hematocrit 38.9 % (36.0-48.0); Hemoglobin 13.8 g/dL (12.0-16.0); Immature Granulocytes Abs Auto 0.08 10^3/uL (0.00-0.03); Immature Granulocytes Pct Auto 0.7 % (0.0-0.5); Lymphocytes Absolute Auto 1.9 10^3/uL (1.2-3.8); Lymphocytes Percent Auto 15.4 % (20.5-60.0); Mean Corpuscular HGB Conc 35.5 g/dL (29.9-35.2); Mean Corpuscular Hemoglobin 32.1 pg (26.7-34.0); Mean Corpuscular Volume 90.5 fL (81.0-99.0); Mean Platelet Volume 8.2 fL (9.5-13.5); Monocytes Percent Auto 8.5 % (1.7-12.0); Neutrophils Absolute Auto 9.2 10^3/uL (1.4-6.5); Neutrophils Percent Auto 74.3 % (43.0-75.0); Platelet Count 440 10^3/uL (150-450); Red Cell Distribution Width 12.7 % (11.0-15.0); White Blood Count 12.3 10^3/uL (4.0-11.0)
[2023-03-28 06:31] LABS: Alanine Aminotransferase 22 U/L (14-59); Albumin Globulin Ratio 0.9; Albumin Level 3.7 g/dL (3.4-5.0); Alkaline Phosphatase 77 U/L (46-116); Aspartate Amino Transferase 17 U/L (15-37); BUN Creatinine Ratio 11.5; Bilirubin Total 0.9 mg/dL (0.2-1.0); Calcium 9.4 mg/dL (8.5-10.1); Chloride 86 mmol/L (98-107); Estimated GFR (African America >60 (>=60); Estimated GFR (Non-African Ame >60 (>=60); Globulin 4.1 g/dL; Glucose 140 mg/dL (74-106); Total Protein 7.8 g/dL (6.4-8.2)
[2023-03-28] MEDS: ONDANSETRON PF 4 MG/2 ML VIAL IV ×2 (06:34→18:26)
[2023-03-28 06:36] LABS: Sodium 123 mmol/L (136-145)
[2023-03-28 06:48] LABS: Magnesium 1.6 mg/dL (1.8-2.4)
[2023-03-28] MEDS: 0.9 % SODIUM CHLORIDE 500 ML IV (07:00)
[2023-03-28] MEDS: LABETALOL HCL 20 MG/4 ML SYRINGE IVP (07:00)
--- NOTE | 2023-03-28 07:31 | ED.GENADUL1 ---
HPI - General Adult General Chief complaint: Nausea/Vomiting/Diarrhea Stated complaint: nausea hypertension Time Seen by Provider: 03/28/23 06:04 Source: patient and family Mode of arrival: Wheelchair Limitations: no limitations History of Present Illness HPI narrative: 87-year-old female presented to the emergency department for feeling shaky and was initially seen by Dr. Lyons and signed out to me after discussing the case with him thoroughly. Please see his full history and physical. Related Data Home Medications Medication Instructions Recorded Confirmed amlodipine 10 mg tablet 10 mg PO QDAY 08/10/22 03/28/23 levothyroxine 88 mcg tablet 88 mcg PO QDAY 08/10/22 03/28/23 losartan 100 mg tablet 100 mg PO QDAY 08/10/22 03/28/23 potassium chloride 20 mEq 20 meq PO TID 08/10/22 03/28/23 tablet,extended release pravastatin 80 mg tablet 80 mg PO QDAY 08/10/22 03/28/23 carvedilol 25 mg tablet 25 mg PO Q12H 02/10/23 03/28/23 magnesium oxide 400 mg (241.3 mg 400 mg PO BID PRN constipation 02/10/23 03/28/23 magnesium) tablet Previous Rx's Medication Instructions Recorded pantoprazole 40 mg tablet,delayed 40 mg PO DAILY #30 tabs 08/17/22 release (Protonix) Allergies Allergy/AdvReac Type Severity Reaction Status Date / Time atorvastatin Allergy Severe HIVES Verified 03/28/23 05:53 prednisone Allergy Severe Rash Verified 03/28/23 05:53 [facility] Medical History Surgical History Family History Mother Family history of CHF (congestive heart failure) Father Lupus Brother Family history of myocardial infarction Family history of stroke Other Arthritis Family history of hypertension Social History Within the past year, how often did you have a drink containing alcohol: never Score interpretation: A score less than 3 is consistent with normal alcohol consumption. 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 Highest level of school completed/degree received: 8th grade Are you now , , , , never or living with a partner: In a typical week, how many times do you talk on the telephone with family, friends, or neighbors: 3 or more times per week How often do you get together with friends or relatives: 3 or more times per week How often do you attend rastafarian or sikhism services: 4 or more times per year Do you belong to any clubs or organizations such as rastafarian groups unions, [employer] or athletic groups, or school groups: yes Total score: 3 Score interpretation: A score of greater than or equal to 2 indicates the lowest level of social isolation. Little interest or pleasure in doing things: not at all Feeling down, depressed, or hopeless: not at all Feel stressed/tense/nervous/anxious/difficulty sleeping: not at all Life stressors: recent of family or friend Do you think of yourself as: straight/heterosexual Gender Identity: female Exam Constitutional Vital Signs, click to edit/add: Last Vital Signs Temp 98.2 F 03/28/23 05:49 Pulse 88 03/28/23 05:49 Resp 18 03/28/23 05:49 BP 168/80 H 03/28/23 05:49 Pulse Ox 95 03/28/23 05:49 O2 Del Method Room Air 03/28/23 05:49 Course Vital Signs Vital signs: Vital Signs Temperature 98.2 F 03/28/23 05:49 Pulse Rate 88 03/28/23 05:49 Respiratory Rate 18 03/28/23 05:49 Blood Pressure 168/80 H 03/28/23 05:49 Pulse Oximetry 95 03/28/23 05:49 Oxygen Delivery Method Room Air 03/28/23 05:49 Temperature 98.2 F 03/28/23 05:49 Pulse Rate 88 03/28/23 05:49 Respiratory Rate 18 03/28/23 05:49 Blood Pressure 168/80 H 03/28/23 05:49 Pulse Oximetry 95 03/28/23 05:49 Oxygen Delivery Method Room Air 03/28/23 05:49 Medical Decision Making MDM Narrative Medical decision making narrative: Sodium is low at 123 and potassium is 3.0. She is being given IV fluids here and is being admitted. Findings were discussed with the patient and her family. Lab Data Lab results reviewed: Yes I reviewed the patient's lab results Labs: Lab Results 03/28/23 Range/Units 05:55 WBC 12.3 H (4.0-11.0) 10^3/uL RBC 4.30 (4.20-5.40) 10^6/uL Hgb 13.8 (12.0-16.0) g/dL Hct 38.9 (36.0-48.0) % MCV 90.5 (81.0-99.0) fL MCH 32.1 (26.7-34.0) pg MCHC 35.5 H (29.9-35.2) g/dL RDW 12.7 (11.0-15.0) % Plt Count 440 (150-450) 10^3/uL MPV 8.2 L (9.5-13.5) fL Neut % (Auto) 74.3 (43.0-75.0) % Lymph % (Auto) 15.4 L (20.5-60.0) % Carbon % (Auto) 8.5 (1.7-12.0) % Eos % (Auto) 0.6 L (0.9-7.0) % Baso % (Auto) 0.5 (0.2-2.0) % Neut # (Auto) 9.2 H (1.4-6.5) 10^3/uL Lymph # (Auto) 1.9 (1.2-3.8) 10^3/uL Carbon # (Auto) 1.0 H (0.3-0.8) 10^3/uL Eos # (Auto) 0.1 (0.0-0.7) 10^3/uL Baso # (Auto) 0.1 (0.0-0.1) 10^3/uL Abs Immat Gran (auto) 0.08 H (0.00-0.03) 10^3/uL Imm/Tot Granulo (auto) 0.7 H (0.0-0.5) % Sodium 123 L* (136-145) mmol/L Potassium 3.0 L (3.5-5.1) mmol/L Chloride 86 L (98-107) mmol/L Carbon Dioxide 27.0 (21.0-32.0) mmol/L Anion Gap 13.0 BUN 9.0 (7.0-18.0) mg/dL Creatinine 0.78 (0.55-1.02) mg/dL Est GFR ( Amer) >60 (>=60) Est GFR (Non-Af Amer) >60 (>=60) BUN/Creatinine Ratio 11.5 Glucose 140 H (74-106) mg/dL Calcium 9.4 (8.5-10.1) mg/dL Magnesium 1.6 L (1.8-2.4) mg/dL Total Bilirubin 0.9 (0.2-1.0) mg/dL AST 17 (15-37) U/L ALT 22 (14-59) U/L Alkaline Phosphatase 77 (46-116) U/L Troponin I High Sens 11.0 (4.0-51.3) pg/mL NT-Pro-B Natriuret Pep 166.0 (<=1800.0) pg/mL Total Protein 7.8 (6.4-8.2) g/dL Albumin 3.7 (3.4-5.0) g/dL Globulin 4.1 g/dL Albumin/Globulin Ratio 0.9 ECG Data Attestation: I personally reviewed and interpreted this ECG as follows: (EKG on my interpretation shows sinus rhythm without acute change) Discharge Plan Discharge Chief Complaint: Nausea/Vomiting/Diarrhea Clinical Impression: Acute hyponatremia, Hypokalemia Patient Disposition: Admitted as Observation Time of Disposition Decision: 07:31 Condition: Good
[2023-03-28 07:50] LABS: Bilirubin Urine NEGATIVE (NEGATIVE); Blood Urine TRACE-I (NEGATIVE); Clarity Urine CLEAR (CLEAR); Color Urine LT. YELLOW (YELLOW); Glucose Urine UA NEGATIVE (NEGATIVE); Ketones Urine TRACE mg/dL (NEGATIVE); Leukocyte Esterase Urine NEGATIVE (NEGATIVE); Nitrite Urine NEGATIVE (NEGATIVE); Protein Urine NEGATIVE (NEG/TRACE); Urobilinogen Urine 0.2 EU/dL (0.2-1.0); pH Urine 7.5 (5.0-9.0)
[2023-03-28 08:07] LABS: Urine Microscopic Indicated YES
[2023-03-28 08:40] LABS: Bacteria Urine NONE SEEN #/HPF (NONE SEEN); Cast Seen? NONE SEEN #/LPF (NONE SEEN); Crystals Seen? None Seen #/HPF (None Seen); Mucus Urine NONE SEEN (NONE SEEN); Squamous Epithelial Cell Urine RARE #/LPF (NONE/RARE); Urine Culture Indicated NO; WBC Urine 0-2 #/HPF (NONE SEEN)
--- OUTSIDE RECORDS SUMMARY | 2023-03-28 08:56 | XMS_ITS | CCD ---
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 Repository (3 sources) atorvastatin; Translations: [atorvastatin] Drug Allergy 3 Unknown (qualifier value) [facility] (2 sources) Ibuprofen; Translations: [ibuprofen] Drug Allergy Unknown (qualifier value) [facility] Natalya Medications Current Medications Medication Drug [...] Antibacterial, Polymyxin-class Antibacterial Start: 11-16-2018 End: 11-18-2018 ttiyehby-aqtkknlkqw-qwcliyqm n (NEOSPORIN) ointment carvedilol (1 source) alpha-Adrenergic [...] 5 August 05, 2022 polyethylene glycol 3350 42030 mg powder for oral solution (1 source) Osmotic Laxative Start: 11-15-2018 polyethylene glycol (GLYCOLAX) packet 17 g Potassium Chloride (7 sources) Start: 08-10-2022 Potassium Chlo ride (Jrq-Dsmv-Xqp 10) mEq, Oral, BID Start Date: 08/10/22 Status: Ordered Start: 11-05-2018 End: 11-05-2018 potassium chloride (KLOR-CON M) extended release tablet 40 mEq Start: 11-04-2018 20 mEq, Oral, 2 TIMES DAILY, First dose on Aura 11/15/18 at 2100 Dilute with at least 4 ounces of cold water. May further dilute if GI adverse effects occur. 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; Translations: [[facility] CURRENT USE OF ASPIRIN] Onset: 12-31-2021 Episodic 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 source) Other jail (current) drug therapy; Translations: [OTH [facility] CURRENT DRUG THERAPY] Onset: 12-31-2021 Episodic Residual [...] Range Facility Office Visiton 01-11-2023 Follow-up visit [id number] Hiram Madrid 1935 F Date Provider Department Center 01/11/2023 LESLY GASPAR CARD [facility] Family History Problem Relation Age of Onset Hypertension Mother Lupus Mother Coronary artery disease Mother Heart attack Mother Hypertension Father Aneurysm Father Coronary artery disease Father Hypertension Sister Lupus Sister Family Status - Relation Status Age at Mother Father Sister Level of Service:98059 HI OFFICE/OUTPATIENT ESTABLISHED MOD MDM 30-39 MIN Normal [facility] Lab Reportson 12-23-2022 Lab Reports [id number] 0TIFF Normal [facility] Urology Office/Clinic Noteon 12-23-2022 Urology Office/Clinic Note [...] Pt presented to ER due to syncope. [place] was found incidentally on CT. CT AP [...] Contact Information ABDULLAHI NOONAN, MIKAYLA Pereira, URL [address] [place] [address] [phone] Additional Instructions: 6 mos w/ renal fxn (per PCP) Patient Education Hydronephrosis Documentation recorded by the ananth Gan accurately reflects the services(s) I performed and decisions made by me. Authenticated by Mikayla eWiss PA-C on 12/23/2022 12:13:28. I, Jacquie Gan, [...] Tab losartan 100 mg Tab Potassium Chloride (Jvd-Roqo-Ffc 10), Oral, BID pravastatin 80 mg Tab [...] virus vaccine, (more content not included)... Normal [facility] Comment on above: Result Comment: Elec tronically Signed By: MIKAYLA WEISS PA-C\.br\Date and Time Signed: 12/23/22 12:13 EDT\.br\Electronically Co-Signed By: Jacquie Gan\.br\Date and Time Co-Signed: 12/22/22 12:27 EDT Ambulatory Visit Summaryon 1 02-21-2022 Ambulatory Visit Summary HIRAM MADRID :1935 Visit Date:12/22/2022 Ambulatory Visit Instructions Your Diagnosis Hydronephrosis, right Ureteral stenosis Tests Performed Urnls Dip Stick Auto w/o Microscopy POC 10530 US Renal -- Results Pending -- Please [...] 100 mg Tab) potassium chloride (Potassium Chloride (Gxf-Ffjb-Bva 10)) pravastatin (pravastatin 80 mg Tab) Procedures Performed Appendectomy, Bilateral salpingo-oophorectomy, Cataract extraction and insertion of intraocular lens, Cholecystectomy, Colonoscopy, Procedure on back, Tonsillectomy. Discharge Vitals Blood Pressure 124/84 Height 155 cm Height 61 in Weight 64.8 kg Weight 142.56 lb BMI 26.97 What to do next Scheduled Follow-Up Appointments June. 2023 9:30 AM EDT With: MIKAYLA WEISS PA-C Where: [facility] Natalya Anders [facility] Patient Educationon 12-23-19 Patient Education Urology Hydronephrosis [...] Follow these instructions at home: ? Take ddlj-rwf-zzncsuq and prescription medicines only as told by [...] provider. Document Revised: 05/26/2020 Document Reviewed: 05/26/2020 [employer] Patient Education ? 2022 [employer]. Normal [facility] RAD - Ultrasound Reporton RAD - Ultrasound Report [id number] 0TIFF [facility] Reminderson 12-22-2022 Reminders - From: Jacquie Gan To: ERIN Weiss; Sent: 12/22/2022 12:30:05 EDT Show up: 05/23/2023 12:30:00 EDT Subject: JAC and BUN/Creatinine prior to appt Reminder Message Please Remember to:_have pt schedule JAC prior to appt. Please look for BUN/Cr labs from PCP. If unable to locate recent labs, send pt order to complete this. Normal [facility] Orders Onlyon 10-25-2022 Orders Only [id number] Hiram Madrid 1935 F Date Provider Department Center 10/25/2022 LESLY GASPAR [facility] Family History Problem Relation Age of Onset Hypertension Mother Lupus Mother Coronary artery disease Mother Heart attack Mother Hypertension Father Aneurysm Father Coronary artery disease Father Hypertension Sister Lupus Sister Family Status - Relation Status Age at Mother Father Sister Normal [facility] 37on 10-14-2022 37 Increase coreg/carvedilol to 25 mg twice a day- you have 12.5 mg tabs now so take 2 twice a day until this bottle is gone- your next refill will be the higher dose of 25 mg bid. Have labs drawn [facility] Office Visiton 10-14-2022 Follow-up visit [id number] Hiram Madrid 1935 Date Provider Department Center 10/14/2022 LESLY GASPAR SONIA Fatmata [facility] Family History Problem Relation Age of Onset Hypertension Mother Lupus Mother Coronary artery disease Mother Heart attack Mother Hypertension Father Aneurysm Father Coronary artery disease Father Hypertension Sister Lupus Sister Family Status - Relation Status Age at Mother Father Sister Level of Service:92352 HI OFFICE/OUTPATIENT ESTABLISHED MOD MDM 30-39 MIN [facility] Consent for Procedure/Surger yon 09-07-2022 Consent for Procedure/Surgery [id number]#1. 00CD:127 [facility] Ambulatory Visit Summaryon 0 09-06-2022 [...] 100 mg Tab) potassium chloride (Potassium Chloride (Umb-Bgkr-Atp 10)) pravastatin (pravastatin 80 mg Tab) Procedures Performed Appendectomy, Bilateral salpingo-oophorectomy, Cataract extraction and insertion of intraocular lens, Cholecystectomy, Colonoscopy, Procedure on back, Tonsillectomy. Discharge Vitals Height 155 cm Height 61 in Weight 65 kg Weight 143 lb BMI 27.06 What to do next Scheduled Follow-Up Appointments Monday 2:00 PM EDT With: CHRISTY DUMONT, Raymond Mckeon Where: [facility] Patient Educationon 09-07-19 Patient Education Urology Hydronephrosis [...] Follow these instructions at home: ? Take qqdn-yvs-zoeiuxn and prescription medicines only as told by [...] provider. Document Revised: 05/26/2020 Document Reviewed: 05/26/2020 [employer] Patient Education ? 2022 [employer] Normal [facility] Urology Office/Clinic Noteon 09-06-2022 Urology Office/Clinic Note [...] [facility] [address], [place] [address]- Additional Instructions: 3 mos no labs Patient [...] Tab losartan 100 mg Tab Potassium Chloride (Vlq-Gudb-Iqn 10), Oral, BID pravastatin 80 mg Tab [...] inactivated 12/06/2016 Rec (more content not included)... [facility] Comment on above: Result Comment: Elec tronically Signed By: Raymond HARRISON MD\.br\Date and Time Signed: 09/06/22 13:02 EDT\.br\Electronically Co-Signed By: Josefa Stewart\.br\Date and Time Co-Signed: 09/06/22 13:01 EDT Operative Reporton Operative Report [id number] CD:127 [facility] RAD - MISCon 08-12-2022 RAD - MISC [id number] CD:127 [facility] Ambulatory Visit Summaryon 0 08-10-2022 Ambulatory Visit Summary HIRAM MADRID :1935 Visit Date:08/10/2022 Ambulatory Visit Instructions Your Diagnosis Hydronephrosis, right Aspirin long-term use Tests Performed Urnls Dip Stick Auto w/o Microscopy POC 52116 Your Care Team Attending Physician - Raymond HARRISON MD Primary Care Physician - Addy Daniels MD This Is Your Medications List Contact prescribing physician if questions or concerns amlodipine (amLODIPine 10 mg Tab) aspirin (aspirin 81 mg oral capsule) carvedilol hydrochlorothiazide levothyroxine (levothyroxine 88 mcg (0.088 mg) Tab) losartan (losartan 100 mg Tab) potassium chloride (Potassium Chloride (Mef-Qnyb-Zju 10)) pravastatin (pravastatin 80 mg Tab) Procedures [...] When: Where: [facility] [address] [place] [address]- Medications What How Much When Instructions Unchanged [...] or concerns Unchanged potassium chloride (Potassium Chloride (Bil-Tzif-Ghg 10)) 2 times a day Contact prescribing physician if questions or concerns Unchanged pravastatin (pravastatin 80 mg Tab) 30 EA, TAKE 1 TABLET BY MOUTH ONCE DAILY Contact prescribing physician if questions or concerns Test Results Urnls Dip Stick Auto w/o Microscopy POC 44918 (08/10/2022) Bilirubin Urine Dipstick - Negative Blood Urine Dipstick - Negative Glucose Urine Dipstick - Negative Ketones Urine Dipstick - Negative Leukocytes Urine Dipstick - Trace Nitrite Urine Dipstick - Negative Protein Urine Dipstick - Negative Specific [place] Urine Dipstick - 1.025 Urine Appearance Urine [...] what caus (more content not included)... Normal [facility] Ambulatory Visit Summary HIRAM MADRID :1935 Visit Date:08/10/2022 Ambulatory Visit Instructions Your Diagnosis Hydronephrosis, right Aspirin long-term use Tests Performed Urnls Dip Stick Auto w/o Microscopy POC 08543 Your Care Team Attending Physician - CHRISTY DUMONT, Raymond Mckeon Primary Care Physician - Addy Daniels MD This Is Your Medications List Contact prescribing physician if questions or concerns amlodipine (amLODIPine 10 mg Tab) aspirin (aspirin 81 mg oral capsule) carvedilol hydrochlorothiazide levothyroxine (levothyroxine 88 mcg (0.088 mg) Tab) losartan (losartan 100 mg Tab) potassium chloride (Potassium Chloride (Xur-Ftln-Wej 10)) pravastatin (pravastatin 80 mg Tab) Procedures [...] Where: [facility] [address] [place] [address]- Medications What How Much When Instructions Unchanged [...] or concerns Unchanged potassium chloride (Potassium Chloride (Jwm-Wjqp-Vzp 10)) 2 times a day Contact prescribing physician if questions or concerns Unchanged pravastatin (pravastatin 80 mg Tab) 30 EA, TAKE 1 TABLET BY MOUTH ONCE DAILY Contact prescribing physician if questions or concerns Test Results Urnls Dip Stick Auto w/o Microscopy POC 80624 (08/10/2022) Bilirubin Urine Dipstick - Negative Blood Urine Dipstick - Negative Glucose Urine Dipstick - Negative Ketones Urine Dipstick - Negative Leukocytes Urine Dipstick - Trace Nitrite Urine Dipstick - Negative Protein Urine Dipstick - Negative Specific [place] Urine Dipstick - 1.025 Urine Appearance Urine [...] what caus (more content not included)... Normal [facility] Consent for Procedure/Surger yon 08-10-2022 Consent for Procedure/Surgery [id number]#[id number] CD:127 [facility] Formson 08-10-2022 Forms [id number]#1.00 CD:127 [facility] Patient Educationon 08-11-19 Patient Education [...] Follow these instructions at home: ? Take lhfy-emc-dlsouoi and prescription medicines only as told by [...] provider. Document Revised: 05/26/2020 Document Reviewed: 05/26/2020 [employer] Patient Education ? 2022 [employer]ivision. PLAYD8 [facility] Urology Office/Clinic Noteon 08-10-2022 Urology Office/Clinic Note Chief Complaint Kidney stones HPI Staff New Pt follow up to [facility] on 08/05/22 due to [...] yo female new pt following up to [facility] ER visit on 08/05/22 [...] General anesthesia. 2. 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 Follow-up With When Contact Information Raymond HARRISON MD, URL [facility] [address], [place] [address]- Additional Instructions: schedule R URS, possible laser [...] No qualifyin (more content not included)... Normal [facility] Comment on above: Result Comment: Elec tronically Signed By: Raymond HARRISON MD\.br\Date and Time Signed: 08/10/22 09:39 EDT\.br\Electronically Co-Signed By: Josefa Stewart\.br\Date and Time Co-Signed: 08/10/22 09:38 EDT XR KUBon 08-09-2022 XR [facility]UB [place] [address] [address] XRay Report Signed Patient: Hiram Madrid MR#: [id number] : 1935 Acct:[id number] Age/Sex: 86 / F ADM Date: 08/09/22 Loc: [facility]D [facility]: Raymond Harrison MD Copies [...] Lopez Jr., D.OYou08/09/2022 3:58 PM Dictation Location: [place] [address] Transcribed By: [facility] 08/09/22 1558 Dictated By: Kameron Lopez Jr, DO 08/09/22 1555 Signed By: 08/09/22 [address] [facility] CT abdomen pelvis wo conon 0 08-06-2022 CT abdomen pelvis wo con [place] [id number] CT Scan Report Signed Patient: Hiram Madrid MR#: [id number] : 1935 Acct:[id number] Age/Sex: 86 / F ADM Date: 08/05/22 Loc: ER Room: Type: [facility] ER Attending Dr: Copies to: Camacho Ladd [...] Faye Wyman M.D.08/06/2022 8:43 AM Dictation Location: [place] [address] Transcribed By: [facility] 08/06/22 0843 Dictated By: Faye Wyman MD 08/06/22 0830 Signed By: 08/06/22 [address] [facility] Alanine aminotransferase [En zymatic activity/volume] in Serum or PlasmaOrdered By: Camacho Ladd on 08-05-2022 ALT [Catalytic activity/Vol] 16 U/L 7-[address] [facility] Albumin [Mass/volume] in Ser um or Plasma by Bromocresol green (BCG) dye binding methoOrdered By: Camacho Ladd on 08-05-2022 Albumin BCG dye [Mass/Vol] 4.4 g/dL 3.5-5.[address] [facility] Alkaline phosphatase [Enzyma tic activity/volume] in Serum or PlasmaOrdered By: Camacho Ladd on 08-05-2022 ALP [Catalytic activity/Vol] 61 U/L 34-[address] [facility] Aspartate aminotransferase [ Enzymatic activity/volume] in Serum or PlasmaOrdered By: Camacho Ladd on 08-05-2022 AST [Catalytic activity/Vol] 21 U/L 13-[address] [facility] Automated erythrocytes count in urine sediment (number/area)Ordered By: Camacho Ladd on 08-05-2022 RBC Auto (Urine sed) [#/Area] 0-1 [HPF] 0-[address] [facility] Automated leukocytes count i n urine sediment (number/area)Ordered By: Camacho Ladd on 08-05-2022 WBC Auto (Urine sed) [#/Area] 1-2 [HPF] 0-[address] [facility] Basic Metabolic Panelon 07-21 Anion gap [Moles/Vol] 17.8 mmol/L High 6.0-15.0 [facility] Comment on above: Performed By: #### H S TROP, HEPATIC, LIPASE, CBC, BMP #### [facility] [address] Calcium [Mass/Vol] 9.7 mg/dL Normal 8.6-10.3 [facility] Comment on above: Performed By: #### H S TROP, HEPATIC, LIPASE, CBC, BMP #### [facility] [address] [place] [address] [place] Chloride [Moles/Vol] 87 mmol/L Low 98-107 [facility] Comment on above: Performed By: #### H S TROP, HEPATIC, LIPASE, CBC, BMP #### [facility] [address] [place] [address] [place] CO2 [Moles/Vol] 23.2 mmol/L Normal 21.0-31.0 [facility] Comment on above: Performed By: #### H S TROP, HEPATIC, LIPASE, CBC, BMP #### [facility] [address] Creatinine [Mass/Vol] 1.03 mg/dL Normal 0.60-1.20 [facility] Comment on above: Performed By: #### H S TROP, HEPATIC, LIPASE, CBC, BMP #### [facility] [address] Creatinine Clr Calc Pharmacy 35.13 [facility] Comment on above: Performed By: #### H S TROP, HEPATIC, LIPASE, CBC, BMP #### [place] [address] [place] GFR/1.73 sq M.predicted MDRD (S/P/Bld) [Vol rate/Area] 53.284 mL/min/{1.73_m2} [facility] Comment on above: Performed By: #### H S TROP, HEPATIC, LIPASE, CBC, BMP #### [address] Glucose [Mass/Vol] 156 mg/dL High 70-100 [facility] Comment on above: Result Comment: [facility] Glucose Reference Range is dependent on time and content of last meal. Glucose of more than 200 mg/dL in a nonstressed, ambulatory subject supports the diagnosis of Diabetes Mellitus. ADA recommended reference range Performed By: #### H S TROP, HEPATIC, LIPASE, CBC, BMP #### [address] Potassium [Moles/Vol] 3.0 mmol/L Low 3.5-5.1 [facility] Comment on above: Performed By: #### H S TROP, HEPATIC, LIPASE, CBC, BMP #### [place] [address] [place] Sodium [Moles/Vol] 125 mmol/L Low 136-145 [facility] Comment on above: Performed By: #### H S TROP, HEPATIC, LIPASE, CBC, BMP #### [place] [address] [place] Urea nitrogen [Mass/Vol] 12 mg/dL Normal 7-[address] [facility] Comment on above: Performed By: #### H S TROP, HEPATIC, LIPASE, CBC, BMP #### [facility] [address] Basophils Auto (Bld) [#/Vol] Ordered By: Camacho Ladd on 08-05-2022 Basophils (Bld) [#/Vol] 0.1 10*3/uL 0.0-0.[address] [facility] Basophils/100 WBC Auto (Bld) Ordered By: Camacho Ladd on 08-05-2022 Basophils/100 WBC (Bld) 0.4 % . [facility] Bilirubin Test strip Ql (U)O rdered By: Camacho Ladd on 08-05-2022 Bilirubin Ql (U) Negative Negative [facility] Bilirubin.direct [Mass/volum e] in Serum or PlasmaOrdered By: Camacho Ladd on 08-05-2022 Bilirubin.direct [Mass/Vol] 0.10 mg/dL 0.03-0.[address] [facility] Bilirubin.total [Mass/volume ] in Serum or PlasmaOrdered By: Camacho Ladd on 08-05-2022 Bilirubin [Mass/Vol] 0.7 mg/dL 0.3-1.0 [facility] Calcium [Mass/volume] in Ser um or PlasmaOrdered By: Camacho Ladd on 08-05-2022 Calcium [Mass/Vol] 9.7 mg/dL 8.6-10.3 [facility] Carbon dioxide, total [Moles /volume] in Serum or PlasmaOrdered By: Camacho Ladd on 08-05-2022 CO2 [Moles/Vol] 23.2 mmol/L 21.0-31.0 [facility] Chloride [Moles/volume] in S willa or PlasmaOrdered By: Camacho Ladd on 08-05-2022 Chloride [Moles/Vol] 87 mmol/L 98-107 [facility] Color Auto (U)Ordered By: Ender Ladd on 08-05-2022 Color (U) Yellow Yellow [facility] Complete Blood Count Auto Di ffon 08-05-2022 Basophils (Bld) [#/Vol] 0.1 10*3/uL Normal 0.0-0.[address] [facility] Comment on above: Result Comment: PERF ORMED BY: [place] [address] PATHOLOGIST GRADER TENDER GOSIA MCADAMS M.D. Performed By: #### H S TROP, HEPATIC, LIPASE, CBC, BMP #### [address] Basophils/100 WBC (Bld) 0.4 % Normal . [facility] Comment on above: Performed By: #### H S TROP, HEPATIC, LIPASE, CBC, BMP #### [address] Eosinophils (Bld) [#/Vol] 0.1 10*3/uL Normal 0.0-0.[address] [facility] Comment on above: Performed By: #### H S TROP, HEPATIC, LIPASE, CBC, BMP #### [address] Eosinophils/100 WBC (Bld) 0.6 % Normal . [facility] Comment on above: Performed By: #### H S TROP, HEPATIC, LIPASE, CBC, BMP #### [address] Erythrocyte distribution width (RBC) [Ratio] 13.6 % Normal 11.9-15.[address] [facility] Comment on above: Performed By: #### H S TROP, HEPATIC, LIPASE, CBC, BMP #### [address] Hematocrit (Bld) [Volume fraction] 37.3 % Normal 34.0-46.[address] [facility] Comment on above: Performed By: #### H S TROP, HEPATIC, LIPASE, CBC, BMP #### [address] Hemoglobin (Bld) [Mass/Vol] 13.0 g/dL Normal 11.8-15.[address] [facility] Comment on above: Performed By: #### H S TROP, HEPATIC, LIPASE, CBC, BMP #### [place] [id number] [place] Lymphocytes (Bld) [#/Vol] 3.1 10*3/uL Normal 1.00-4.[address] [facility] Comment on above: Performed By: #### H S TROP, HEPATIC, LIPASE, CBC, BMP #### [facility] [address] [place] [address] Lymphocytes/100 WBC (Bld) 21.9 % Normal . [facility] Comment on above: Performed By: #### H S TROP, HEPATIC, LIPASE, CBC, BMP #### [address] MCH (RBC) [Entitic mass] 31.6 pg Normal 24.7-34.[address] [facility] Comment on above: Performed By: #### H S TROP, HEPATIC, LIPASE, CBC, BMP #### [address] MCV (RBC) [Entitic vol] 90.4 fL Normal 80-100 [facility] Comment on above: Performed By: #### H S TROP, HEPATIC, LIPASE, CBC, BMP #### [address] Mean Corpuscular HGB Conc 35.0 g/dL Normal 32.0-35.[address] [facility] Comment on above: Performed By: #### H S TROP, HEPATIC, LIPASE, CBC, BMP #### [address] Monocytes (Bld) [#/Vol] 1.4 10*3/uL High 0.0-0.[address] [facility] Comment on above: Performed By: #### H S TROP, HEPATIC, LIPASE, CBC, BMP #### [address] Monocytes/100 WBC (Bld) 20.58 % High 0.00-20.00 [facility] Comment on above: Result Comment: For adults in ED, MDW > 20.0 may be associated with a higher risk of sepsis during the first 12 hrs of hospital admission Performed By: #### H S TROP, HEPATIC, LIPASE, CBC, BMP #### [address] Monocytes/100 WBC (Bld) 9.6 % Normal . [facility] Comment on above: Performed By: #### H S TROP, HEPATIC, LIPASE, CBC, BMP #### [address] Neutrophils (Bld) [#/Vol] 9.6 10*3/uL High 1.8-7.[address] [facility] Comment on above: Performed By: #### H S TROP, HEPATIC, LIPASE, CBC, BMP #### [address] Neutrophils/100 WBC (Bld) 67.5 % Normal . [facility] Comment on above: Performed By: #### H S TROP, HEPATIC, LIPASE, CBC, BMP #### [address] NRBC% 0.1 /100{WBC} Normal 0-0.[address] [facility] Comment on above: Performed By: #### H S TROP, HEPATIC, LIPASE, CBC, BMP #### [address] Platelet mean volume (Bld) [Entitic vol] 7.2 fL Normal 6.3-10.[address] [facility] Comment on above: Performed By: #### H S TROP, HEPATIC, LIPASE, CBC, BMP #### [place] [address] [place] Platelets (Bld) [#/Vol] 500 10*3/uL High 150-[address] [facility] Comment on above: Performed By: #### H S TROP, HEPATIC, LIPASE, CBC, BMP #### [address] RBC (Bld) [#/Vol] 4.13 10*6/uL Normal 3.60-5.00 [facility] Comment on above: Performed By: #### H S TROP, HEPATIC, LIPASE, CBC, BMP #### [place] [address] [place] WBC (Bld) [#/Vol] 14.2 10*3/uL High 3.8-11.6 [facility] Comment on above: Performed By: #### H S TROP, HEPATIC, LIPASE, CBC, BMP #### [facility] [address] [id number] [place] Creatinine [Mass/volume] in Serum or PlasmaOrdered By: Camacho Ladd on 08-05-2022 Creatinine [Mass/Vol] 1.03 mg/dL 0.60-1.20 [facility] Dipstick and Microscopicon 0 08-05-2022 Appearance (U) Cloudy Critically abnormal Clear [facility] Comment on above: Order Comment: Name Collection Type:: Clean-Voided Midstream Performed By: #### A DDONUAPLUS #### [facility] [address] Bacteria,Urine None Seen Normal None Seen [facility] Comment on above: Order Comment: Name Collection Type:: Clean-Voided Midstream Performed By: #### A DDONUAPLUS #### [facility] [address] [place] [address] [place] Bilirubin,Urine Negative Normal Negative [facility] Comment on above: Order Comment: Name Collection Type:: Clean-Voided Midstream Performed By: #### A DDONUAPLUS #### [facility] [address] [id number] [place] Color (U) Yellow Normal Yellow [facility] Comment on above: Order Comment: Name Collection Type:: Clean-Voided Midstream Performed By: #### A DDONUAPLUS #### [facility] [address] [id number] [place] Glucose Ql (U) Normal Normal Normal [facility] Comment on above: Order Comment: Name Collection Type:: Clean-Voided Midstream Performed By: #### A DDONUAPLUS #### [facility] [address] [id number] [place] Hyaline Casts,Urine None Seen Normal 0-8 [facility] Comment on above: Order Comment: Name Collection Type:: Clean-Voided Midstream Result Comment: PERF ORMED BY: [place] [address] PATHOLOGIST [employer]ADER TENDER GOSIA MCADAMS M.D. Performed By: #### A DDONUAPLUS #### [address] Ketones Ql (U) Negative Normal Negative [facility] Comment on above: Order Comment: Name Collection Type:: Clean-Voided Midstream Performed By: #### A DDONUAPLUS #### [address] Leukocyte esterase Test strip Ql (U) 1+ High Negative [facility] Comment on above: Order Comment: Name Collection Type:: Clean-Voided Midstream Performed By: #### A DDONUAPLUS #### [place] [address] [place] Nitrite,Urine Negative Normal Negative [facility] Comment on above: Order Comment: Name Collection Type:: Clean-Voided Midstream Performed By: #### A DDONUAPLUS #### [place] [address] [place] Occult Blood,Urine Negative Normal Negative [facility] Comment on above: Order Comment: Name Collection Type:: Clean-Voided Midstream Result Comment: PERF ORMED BY: [place] [address] PATHOLOGIST [employer] GOSIA MCADAMS M.D. Performed By: #### A DDONUAPLUS #### [place] [address] [place] pH (U) 7.0 [pH] Normal 5.0-9.[address] [facility] Comment on above: Order Comment: Name Collection Type:: Clean-Voided Midstream Performed By: #### A DDONUAPLUS #### [place] [address] [place] Protein,Urine Negative Normal Negative [facility] Comment on above: Order Comment: Name Collection Type:: Clean-Voided Midstream Performed By: #### A DDONUAPLUS #### [address] [place] [address] [place] RBC LM.HPF (Urine sed) [#/Area] 0 /[HPF] Normal 0-[address] [facility] Comment on above: Order Comment: Name Collection Type:: Clean-Voided Midstream Performed By: #### A DDONUAPLUS #### [facility] [address] [place] [address] Specificy [place],Urine 1.009 Normal 1.001-1.[address] [facility] Comment on above: Order Comment: Name Collection Type:: Clean-Voided Midstream Performed By: #### A DDONUAPLUS #### [facility] [address] [place] [address] Squamous Epithelial Cell,Urine 0-1 Normal 0-[address] [facility] Comment on above: Order Comment: Name Collection Type:: Clean-Voided Midstream Performed By: #### A DDONUAPLUS #### [facility] [address] [place] [address] Urobilinogen,Urine Normal Normal Normal [facility] Comment on above: Order Comment: Name Collection Type:: Clean-Voided Midstream Performed By: #### A DDONUAPLUS #### [facility] [address] [place] [address] [place] WBC,Urine 1-2 Normal 0-[address] [facility] Comment on above: Order Comment: Name Collection Type:: Clean-Voided Midstream Performed By: #### A DDONUAPLUS #### [facility] [address] [place] [address] ECG 12 lead ECGon 08-05-2022 ECG 12 lead ECG [facility] [place] [address] [place] [address] Electrocardiograph Report Signed Patient: Hiram Madrid MR#: [id number] : 1935 Acct:[id number] Age/Sex: 86 / F ADM Date: 08/05/22 Loc: ER Room: Type: [facility] ER Attending Dr: Ordering Provider: Camacho Ladd [...] branch block Confirmed by Camacho Ladd DO ([id number]) on 08/06/2022 1:49:12 AM Referred By: Electronically Signed By:Camacho Ladd DO Transcribed By: MUS Signed By Camacho Ladd DO [address] [facility] Eosinophils Auto (Bld) [#/Vo l]Ordered By: Camacho Ladd on 08-05-2022 Eosinophils (Bld) [#/Vol] 0.1 10*3/uL 0.0-0.[address] [facility] Eosinophils/100 WBC Auto (Bl d)Ordered By: Camacho Ladd on 08-05-2022 Eosinophils/100 WBC (Bld) 0.6 % . [facility] Erythrocyte distribution wid th Auto (RBC) [Ratio]Ordered By: Camacho Ladd on 08-05-2022 Erythrocyte distribution width (RBC) [Ratio] 13.6 % 11.9-15.[address] [facility] Globulin Calc (S) [Mass/Vol] Ordered By: Camacho Ladd on 08-05-2022 Globulin (S) [Mass/Vol] 2.9 g/dL [facility] Glucose [Mass/volume] in Ser um or PlasmaOrdered By: Camacho Ladd on 08-05-2022 Glucose [Mass/Vol] 156 mg/dL 70-100 [facility] Comment on above: ADA recommended refe rence rangeRandom Glucose Reference Range is dependent on time and content of last meal. Glucose of more than 200 mg/dL in a nonstressed, ambulatory subject supports the diagnosis of Diabetes Mellitus. Hematocrit Auto (Bld) [Volum e fraction]Ordered By: Camacho Ladd on 08-05-2022 Hematocrit (Bld) [Volume fraction] 37.3 % 34.0-46.[address] [facility] Hemoglobin [Mass/volume] in BloodOrdered By: Camacho Ladd on 08-05-2022 Hemoglobin (Bld) [Mass/Vol] 13.0 g/dL 11.8-15.[address] [facility] Hepatic Panelon 08-05-2022 Albumin [Mass/Vol] 4.4 g/dL Normal 3.5-5.7 [facility] Comment on above: Performed By: #### H S TROP, HEPATIC, LIPASE, CBC, BMP #### [facility] [address] Albumin/Globulin [Mass ratio] 1.5 {ratio} Normal [facility] Comment on above: Performed By: #### H S TROP, HEPATIC, LIPASE, CBC, BMP #### [facility] [address] ALP [Catalytic activity/Vol] 61 U/L Normal 34-[address] [facility] Comment on above: Performed By: #### H S TROP, HEPATIC, LIPASE, CBC, BMP #### [facility] [address] [place] [address] [place] ALT [Catalytic activity/Vol] 16 U/L Normal 7-[address] [facility] Comment on above: Performed By: #### H S TROP, HEPATIC, LIPASE, CBC, BMP #### [facility] [address] [place] [address] [place] AST [Catalytic activity/Vol] 21 U/L Normal 13-[address] [facility] Comment on above: Performed By: #### H S TROP, HEPATIC, LIPASE, CBC, BMP #### [facility] [address] [place] [address] [place] Bilirubin [Mass/Vol] 0.7 mg/dL Normal 0.3-1.0 [facility] Comment on above: Performed By: #### H S TROP, HEPATIC, LIPASE, CBC, BMP #### [facility] [address] [place] [address] [place] Bilirubin,Indirect 0.6 mg/dL Normal [facility] Comment on above: Performed By: #### H S TROP, HEPATIC, LIPASE, CBC, BMP #### [facility] [address] [place] [address] [place] Bilirubin.indirect [Mass/Vol] 0.10 mg/dL Normal 0.03-0.[address] [facility] Comment on above: Performed By: #### H S TROP, HEPATIC, LIPASE, CBC, BMP #### [facility] [address] Globulin (S) [Mass/Vol] 2.9 g/dL Normal [facility] Comment on above: Performed By: #### H S TROP, HEPATIC, LIPASE, CBC, BMP #### [facility] [address] Protein [Mass/Vol] 7.3 g/dL Normal 6.4-8.9 [facility] Comment on above: Performed By: #### H S TROP, HEPATIC, LIPASE, CBC, BMP #### [address] Ketones Auto test strip (U) [Mass/Vol]Ordered By: Camacho Ladd on 08-05-2022 Ketones (U) [Mass/Vol] Negative Negative [facility] Laboratory - UrinalysisOrder ed By: Camacho Ladd on 08-05-2022 Hyaline casts LM Ql (Urine sed) None seen [LPF] 0-[address] [facility] Leukocytes [#/volume] correc sofiya for nucleated erythrocytes in Blood by Automated counOrdered By: Camacho Ladd on 08-05-2022 WBC corrected for nucl RBC Auto (Bld) [#/Vol] 14.2 10*3/uL 3.8-11.[address] [facility] Lipaseon 08-05-2022 Lipase [Catalytic activity/Vol] 23.0 U/L Normal 11.0-82.[address] [facility] Comment on above: Result Comment: PERF ORMED BY: [address] [place] [address] PATHOLOGIST [employer] GOSIA MCADAMS M.D. Performed By: #### H S TROP, HEPATIC, LIPASE, CBC, BMP #### [facility] [address] [place] [address] Lipase [Enzymatic activity/v olume] in Serum or PlasmaOrdered By: Camacho Ladd on 08-05-2022 Lipase [Catalytic activity/Vol] 23.0 U/L 11.0-82.[address] [facility] Lymphocytes Auto (Bld) [#/Vo l]Ordered By: Camacho Ladd on 08-05-2022 Lymphocytes (Bld) [#/Vol] 3.1 10*3/uL 1.00-4.[address] [facility] Lymphocytes/100 WBC Auto (Bl d)Ordered By: Camacho Ladd on 08-05-2022 Lymphocytes/100 WBC (Bld) 21.9 % . [facility] MCH Auto (RBC) [Entitic mass ]Ordered By: Camacho Ladd on 08-05-2022 MCH (RBC) [Entitic mass] 31.6 pg 24.7-34.[address] [facility] MCHC Auto (RBC) [Mass/Vol]Or dered By: Camacho Ladd on 08-05-2022 MCHC (RBC) [Mass/Vol] 35.0 g/dL 32.0-35.0 [facility] MCV Auto (RBC) [Entitic vol] Ordered By: Camacho Ladd on 08-05-2022 MCV (RBC) [Entitic vol] 90.4 fL 80-100 [facility] Monocyte distribution width [Entitic volume] in Blood by AutomatedOrdered By: Camacho Ladd on 08-05-2022 Monocyte distribution width Auto (Bld) [Entitic vol] 20.58 % 0.00-20.[address] [facility] Comment on above: For adults in ED, MD W > 20.0 may be associated with a higher risk of sepsis during the first 12 hrs of hospital admission Monocytes Auto (Bld) [#/Vol] Ordered By: Camacho Ladd on 08-05-2022 Monocytes (Bld) [#/Vol] 1.4 10*3/uL 0.0-0.[address] [facility] Monocytes/100 WBC Auto (Bld) Ordered By: Camacho Ladd on 08-05-2022 Monocytes/100 WBC (Bld) 9.6 % . [facility] Neutrophils Auto (Bld) [#/Vo l]Ordered By: Camacho Ladd on 08-05-2022 Neutrophils (Bld) [#/Vol] 9.6 10*3/uL 1.8-7.[address] [facility] Neutrophils/100 WBC Auto (Bl d)Ordered By: Camacho Ladd on 08-05-2022 Neutrophils/100 WBC (Bld) 67.5 % . [facility] Nitrite Test strip Ql (U)Ord ered By: Camacho Ladd on 08-05-2022 Nitrite Ql (U) Negative Negative [facility] No Panel InformationOrdered By: Camacho Ladd on 08-05-2022 Estimated GFR (CKD-EPI) 53.284 mL/Min [facility] Creatinine Clearance (Chem 35.[address] [facility] Nucleated erythrocytes [Pres ence] in Blood by Automated countOrdered By: Camacho Ladd on 08-05-2022 Nucleated RBC Auto Ql (Bld) 0.1 /100{WBC} 0-0.[address] [facility] Platelet mean volume Auto (B ld) [Entitic vol]Ordered By: Camacho Ladd on 08-05-2022 Platelet mean volume (Bld) [Entitic vol] 7.2 fL 6.3-10.[address] [facility] Platelets Auto (Bld) [#/Vol] Ordered By: Camacho Ladd on 08-05-2022 Platelets (Bld) [#/Vol] 500 10*3/uL 150-[address] [facility] Potassium [Moles/volume] in Serum or PlasmaOrdered By: Camacho Ladd on 08-05-2022 Potassium [Moles/Vol] 3.0 mmol/L 3.5-5.1 [facility] Protein Auto test strip (U) [Mass/Vol]Ordered By: Camacho Ladd on 08-05-2022 Protein (U) [Mass/Vol] Negative Negative [facility] Protein [Mass/volume] in Ser um or PlasmaOrdered By: Camacho Ladd on 08-05-2022 Protein [Mass/Vol] 7.3 g/dL 6.4-8.9 [facility] RBC Auto (Bld) [#/Vol]Ordere d By: Camacho Ladd on 06-16-2023 RBC (Bld) [#/Vol] 4.13 10*6/uL 3.60-5.00 [facility] Serum or plasma albumin/glob ulin mass ratioOrdered By: Camacho Ladd on 08-05-2022 Albumin/Globulin [Mass ratio] 1.5 {ratio} [facility] Serum or plasma anion gap de terminationOrdered By: Camacho Ladd on 08-05-2022 Anion gap [Moles/Vol] 17.8 mmol[facility]L [facility] or plasma non-glucuron idated bilirubin measurement (mass/volume)Ordered By: Camacho Ladd on 08-05-2022 Bilirubin.indirect [Mass/Vol] 0.6 mg/dL [facility] Sodium [Moles/volume] in Ser um or PlasmaOrdered By: Camacho Ladd on 08-05-2022 Sodium [Moles/Vol] 125 mmol/L 136-145 [facility] Specific gravity Auto test s trip (U) [Rel density]Ordered By: Camacho Ladd on 08-05-2022 Specific gravity (U) [Rel density] 1.009 1.001-1.[address] [facility] Squamous epithelial cells de tection in urine sediment by light microscopyOrdered By: Camacho Ladd on 08-05-2022 Epithelial cells.squamous LM Ql (Urine sed) 0-1 [HPF] 0-[address] [facility] Troponin I High Sensitivityo n 08-05-2022 Troponin I High Sensitivity 7.7 pg/mL Normal 0.0-15.[address] [facility] Comment on above: Result Comment: PERF ORMED BY: [place] [address] PATHOLOGIST [employer]AD[employer] GOSIA MCADAMS M.D. Performed By: #### H S TROP, HEPATIC, LIPASE, CBC, BMP #### [address] Troponin I.cardiac [Mass/vol ume] in Serum or Plasma by Detection limit <= 0.01 ng/Ordered By: Camacho Ladd on 08-05-2022 Troponin I.cardiac DL <= 0.01 ng/mL [Mass/Vol] 7.7 pg/mL 0.0-15.[address] [facility] Urea nitrogen [Mass/volume] in Serum or PlasmaOrdered By: Camacho Ladd on 08-05-2022 Urea nitrogen [Mass/Vol] 12 mg/dL 7-[address] [facility] Urine bacteria detection by automated methodOrdered By: Camacho Ladd on 08-05-2022 Bacteria Auto Ql (U) None seen None Seen [facility] Urine clarity by refractomet ry automatedOrdered By: Camacho Ladd on 08-05-2022 Clarity Refractometry automated (U) Cloudy Clear [facility] Urine glucose measurement by automated test strip (mass/volume)Ordered By: Camacho Ladd on 08-05-2022 Glucose Auto test strip (U) [Mass/Vol] Normal mg/dL Normal [facility] Urine hemoglobin detection b y automated test stripOrdered By: Camacho Ladd on 08-05-2022 Hemoglobin Auto test strip Ql (U) Negative Negative [facility] Urine leukocyte esterase det ection by automated test stripOrdered By: Camacho Ladd on 08-05-2022 Leukocyte esterase Auto test strip Ql (U) 1+ Negative [facility] Urobilinogen Auto test strip (U) [Mass/Vol]Ordered By: Camacho Ladd on 08-05-2022 Urobilinogen (U) [Mass/Vol] Normal mg/dL Normal [facility] WBC Auto (Bld) [#/Vol]Ordere d By: Camacho Ladd on 08-05-2022 WBC (Bld) [#/Vol] 14.2 10*3/uL 3.8-11.6 [facility] pH Auto test strip (U)Ordere d By: Camacho Ladd on 08-05-2022 pH (U) 7.0 [pH] 5.0-9.[address] [facility] BNPon 06-13-2022 Natriuretic peptide B (Bld) [Mass/Vol] 142.0 pg/mL Normal <=1,800.0 [facility] Comment on above: Performed By: #### T , BMP #### [facility] [address] [place] [address] Dr. Tasha Dodson CBC AUTO DIFFon 06-13-2022 BASO # 0.1 103/ul Normal 0.0-0.1 [facility] Comment on above: Performed By: #### T SH, BMP #### [facility] [address] [place] [address] Dr. Tasha Dodson Basophils/100 WBC (Bld) 1.0 % Normal 0.2-2.0 [facility] Comment on above: Performed By: #### T SH, BMP #### [facility] [address] [place] [address] Dr. Tasha Dodson EO # 0.3 103/ul Normal 0.0-0.7 [facility] Comment on above: Performed By: #### T SH, BMP #### [facility] [address] [place] [address] Dr. Tasha Dodson Eosinophils/100 WBC (Bld) 2.6 % Normal 0.9-7.0 [facility] Comment on above: Performed By: #### T SH, BMP #### [facility] [address] [place] [address] Dr. Tasha Dodson Erythrocyte distribution width (RBC) [Ratio] 13.4 % Normal 11.0-15.0 [facility] Comment on above: Performed By: #### T SH, BMP #### [facility] [address] [place] [address] Dr. Tasha Dodson Hematocrit (Bld) [Volume fraction] 39.5 % Normal 36.0-48.0 [facility] Comment on above: Performed By: #### T SH, BMP #### [facility] [address] [place] [address] Dr. Tasha Dodson Hemoglobin (Bld) [Mass/Vol] 13.1 g/dL Normal 12.0-16.0 [facility] Comment on above: Performed By: #### T SH, BMP #### [facility] [address] [place] [address] Dr. Tasha Dodson IG # 0.07 10e3/ul Critically high 0.00-0.03 [facility] Comment on above: Performed By: #### T SH, BMP #### [facility] [address] [address] [address] Tasha Dodson IG % 0.6 % Critically high 0.0-0.5 [facility] Comment on above: Performed By: #### T SH, BMP #### [facility] [address] [address] [address] Tasha Dodson LYMPH # 2.5 103/ul Normal 1.2-3.8 [facility] Comment on above: Performed By: #### T SH, BMP #### [facility] [address] [address] [address] Tasha Dodson Lymphocytes/100 WBC (Bld) 22.9 % Normal 20.5-60.0 [facility] Comment on above: Performed By: #### T SH, BMP #### [facility] [address] [address] [address] Tasha Dodson MANUAL DIFF REQ NO Normal [facility] Comment on above: Performed By: #### T SH, BMP #### [facility] [address] [address] [address] Tasha Dodson MCH (RBC) [Entitic mass] 30.7 pg Normal 26.7-34.0 [facility] Comment on above: Performed By: #### T SH, BMP #### [facility] [address] [address] [address] Tasha Dodson MCHC (RBC) [Mass/Vol] 33.2 g/dL Normal 29.9-35.2 [facility] Comment on above: Performed By: #### T SH, BMP #### [facility] [address] [address] [address] Tasha Dodson MCV (RBC) [Entitic vol] 92.5 fL Normal 81.0-99.0 [facility] Comment on above: Performed By: #### T SH, BMP #### [facility] [address] [address] [address] Tasha Dodson MONO # 0.8 103/ul Normal 0.3-0.8 [facility] Comment on above: Performed By: #### T SH, BMP #### [facility] [address] [address] [address] Tasha Dodson Monocytes/100 WBC (Bld) 7.0 % Normal 1.7-12.0 [facility] Comment on above: Performed By: #### T SH, BMP #### [facility] [address] [place] [address] Dr. Tasha Dodson NEUT # 7.2 103/ul Critically high 1.4-6.5 [facility] Comment on above: Performed By: #### T SH, BMP #### [facility] [address] [place] [address] Dr. Tasha Dodson Neutrophils/100 WBC (Bld) 65.9 % Normal 43.0-75.0 [facility] Comment on above: Performed By: #### T SH, BMP #### [facility] [address] [place] [address] Dr. Tasha Dodson Platelet mean volume (Bld) [Entitic vol] 8.0 fL Critically low 9.5-13.5 [facility] Comment on above: Performed By: #### T SH, BMP #### [facility] [address] [place] [address] Dr. Tasha Dodson PLT 449 103/ul Normal 150-450 [facility] Comment on above: Performed By: #### T SH, BMP #### [facility] [address] [place] [address] Dr. Tasha Dodson RBC 4.27 106/ul Normal 4.20-5.40 [facility] Comment on above: Performed By: #### T SH, BMP #### [facility] [address] [place] [address] Dr. Tasha Dodson WBC 10.9 103/ul Normal 4.0-11.0 [facility] Comment on above: Performed By: #### T SH, BMP #### [facility] [address] [place] [address] Dr. Tasha Dodson FREE THYROXINE INDEX T7on FTI 3.67 Normal 1.30-4.50 [facility] Comment on above: Performed By: #### T SH, BMP #### [facility] [address] [place] [address] Dr. Tasha Dodson T3U 36.0 % Normal 30.0-39.0 [facility] Comment on above: Performed By: #### T SH, BMP #### [facility] [address] [place] [address] Dr. Tasha Dodson T4 [Mass/Vol] 10.20 ug/dL Normal 4.80-13.90 [facility] Comment on above: Performed By: #### T SH, BMP #### [facility] [address] [place] [address] Dr. Tasha Dodson PROF CHEM 8 (BAS METB)on Anion gap [Moles/Vol] 13.8 mmol/L Normal [facility] Comment on above: Performed By: #### T SH, BMP #### [facility] [address] [place] [address] Dr. Tasha Dodson Calcium [Mass/Vol] 9.8 mg/dL Normal 8.5-10.1 [facility] Comment on above: Performed By: #### T SH, BMP #### [facility] [address] [place] [address] Dr. Tasha Dodson Chloride [Moles/Vol] 95 mmol/L Critically low 98-107 [facility] Comment on above: Performed By: #### T SH, BMP #### [facility] [address] [place] [address] Dr. Tasha Dodson CO2 [Moles/Vol] 30.5 mmol/L Normal 21.0-32.0 [facility] Comment on above: Performed By: #### T SH, BMP #### [facility] [address] [place] [address] Dr. Tasha Dodson Creatinine [Mass/Vol] 0.78 mg/dL Normal 0.55-1.02 [facility] Comment on above: Performed By: #### T SH, BMP #### [facility] [address] [place] [address] Dr. Tasha Dodson EGFR-AF BRAZILIAN >60 Normal >=60 [facility] Comment on above: Performed By: #### T SH, BMP #### [facility] [address] [place] [address] Dr. Tasha Dodson EGFR-NON AF BRAZILIAN >60 Normal >=60 [facility] Comment on above: Performed By: #### T SH, BMP #### [facility] [address] [place] [address] Dr. Tasha Dodson Glucose [Mass/Vol] 108 mg/dL Critically high 74-106 [facility] Comment on above: Performed By: #### T SH, BMP #### [facility] [address] [place] [address] Dr. Tasha Dodson Potassium [Moles/Vol] 3.3 mmol/L Critically low 3.5-5.1 [facility] Comment on above: Performed By: #### T SH, BMP #### [facility] [address] [place] [address] Dr. Tasha Dodson Sodium [Moles/Vol] 136 mmol/L Normal 136-145 [facility] [facility] Comment on above: Performed By: #### T SH, BMP #### [facility] [address] [place] [address] Dr. Tasha Dodson Urea nitrogen [Mass/Vol] 11.0 mg/dL Normal 7.0-18.0 [facility] Comment on above: Performed By: #### T SH, BMP #### [facility] [address] [place] [address] Dr. Tasha Dodson Urea nitrogen/Creatinine [Mass ratio] 14.1 mg/mg Normal [facility] Comment on above: Performed By: #### T SH, BMP #### [facility] [address] [place] [address] Dr. Tasha Dodson TSHon 06-13-2022 TSH 2.583 uIU/mL Normal 0.358-3.740 [facility] Comment on above: Performed By: #### T SH, BMP #### [facility] [address] [place] [address] Dr. Tasha Dodson UA (CLEAN/CATCH) MONITORING ENGINEER/MICRO I F IND.on 06-13-2022 Bilirubin Ql (U) Negative Normal NEGATIVE [facility] Comment on above: Performed By: #### T SH, BMP #### [facility] [address] [place] [address] Dr. Tasha Dodson Clarity (U) CLEAR Normal CLEAR [facility] Comment on above: Performed By: #### T SH, BMP #### [facility] [address] [place] [address] Dr. Tasha Dodson Color (U) LT. YELLOW Normal YELLOW [facility] Comment on above: Performed By: #### T SH, BMP #### [facility] [address] [place] [address] Dr. Tasha Dodson Glucose Ql (U) Negative Normal NEGATIVE [facility] Comment on above: Performed By: #### T SH, BMP #### [facility] [address] [place] [address] Dr. Tasha Dodson Hemoglobin Ql (U) Negative Normal NEGATIVE [facility] Comment on above: Performed By: #### T SH, BMP #### [facility] [address] [place] [address] Dr. Tasha Dodson Ketones Ql (U) Negative Normal NEGATIVE [facility] Comment on above: Performed By: #### T SH, BMP #### [facility] [address] [place] [address] Dr. Tasha Dodson LEUKOCYTES Negative Normal NEGATIVE [facility] Comment on above: Performed By: #### T SH, BMP #### [facility] [address] [place] [address] Dr. Tasha Dodson Nitrite Ql (U) Negative Normal NEGATIVE [facility] Comment on above: Performed By: #### T SH, BMP #### [facility] [address] [place] [address] Dr. Tasha Dodson pH (U) 7.0 [pH] Normal 5-9 [facility] Comment on above: Performed By: #### T SH, BMP #### [facility] [address] [place] [address] Dr. Tasha Dodson SPEC GRAVITY 1.010 Normal 1.005-<=1.0 25 [facility] Comment on above: Performed By: #### T SH, BMP #### [facility] [address] [place] [address] Dr. Tasha Dodson UA PROTEIN Negative Normal NEGATIVE/ TRACE [facility] Comment on above: Performed By: #### T SH, BMP #### [facility] [address] [place] [address] Dr. Tasha Dodson UR MICRO IND NOT INDICATED Normal [facility] Comment on above: Performed By: #### T SH, BMP #### [facility] [address] [place] [address] Dr. Tasha Dodson Urobilinogen Qn (U) 0.2 {Juan'U}/dL Normal 0.2 - 1. 0 [facility] Comment on above: Performed By: #### T JESI, BMP #### [facility] [address] [place] [address] Dr. Tasha Dodson ECHOCARDIO M/2D COMPLETEon 0 04-18-2022 ECHOCARDIO M/2D COMPLETE Patient: HIRAM MADRID Exam Date: 04/18/2022 : 1935 Gender:F Ordering : DR VALERIE DARDEN M.D. Admission #: [id number] Family : DR ADDY DANIELS . Order #: [id number] CLICK HERE TO VIEW EXAM ECHOCARDIOGRAM REPORT [...] Barragan M.D. on 04/19/2022 at 18:55 Normal [facility] Office Visiton 04-04-2022 Follow-up visit [id number] Hiram Madrid 1935 F Date Provider Department Center 04/04/2022 Yazmin-VALERIE DARDEN [facility] Family History Problem Relation Age of Onset Hypertension Mother Lupus Mother Coronary artery disease Mother Heart attack Mother Hypertension Father Aneurysm Father Coronary artery disease Father Hypertension Sister Lupus Sister Family Status - Relation Status Age at Mother Father Sister Level of Service:71840 HI OFFICE/OUTPATIENT ESTABLISHED MOD MDM 30-39 MIN Reason for Visit and Comments: Hyperlipidemia [182] Hypertension [141175] carotid artery stenosis [Other] 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 Tasha Dodson Basophils/100 WBC (Bld) 0.6 % Normal 0.2-2.0 [facility] Comment on above: Performed By: #### C BC #### [facility] [address] [address] [address] Tasha Dodson EO # 0.1 103/ul Normal 0.0-0.7 [facility] Comment on above: Performed By: #### C BC #### [facility] [address] [place] [address] Dr. Tasha Dodson Eosinophils/100 WBC (Bld) 0.9 % Normal 0.9-7.0 [facility] Comment on above: Performed By: #### C BC #### [facility] [address] [place] [address] Dr. Tasha Dodson Erythrocyte distribution width (RBC) [Ratio] 13.0 % Normal 11.0-15.0 [facility] Comment on above: Performed By: #### C BC #### [facility] [address] [place] [address] Dr. Tasha Dodson Hematocrit (Bld) [Volume fraction] 38.5 % Normal 36.0-48.0 [facility] Comment on above: Performed By: #### C BC #### [facility] [address] [place] [address] Dr. Tasha Dodson Hemoglobin (Bld) [Mass/Vol] 13.4 g/dL Normal 12.0-16.0 [facility] Comment on above: Performed By: #### C BC #### [facility] [address] [place] [address] Dr. Tasha Dodson IG # 0.07 10e3/ul Critically high 0.00-0.03 [facility] Comment on above: Performed By: #### C BC #### [facility] [address] [place] [address] Dr. Tasha Dodson IG % 0.5 % Normal 0.0-0.5 [facility] Comment on above: Performed By: #### C BC #### [facility] [address] [place] [address] Dr. Tasha Dodson LYMPH # 2.8 103/ul Normal 1.2-3.8 [facility] Comment on above: Performed By: #### C BC #### [facility] [address] [place] [address] Dr. Tasha Dodson Lymphocytes/100 WBC (Bld) 20.5 % Normal 20.5-60.0 [facility] Comment on above: Performed By: #### C BC #### [facility] [address] [place] [address] Dr. Tasha Dodson MANUAL DIFF REQ NO Normal [facility] Comment on above: Performed By: #### C BC #### [facility] [address] [place] [address] Dr. Tasha Dodson MCH (RBC) [Entitic mass] 30.7 pg Normal 26.7-34.0 [facility] Comment on above: Performed By: #### C BC #### [facility] [address] [place] [address] Dr. Tasha Dodson MCHC (RBC) [Mass/Vol] 34.8 g/dL Normal 29.9-35.2 [facility] Comment on above: Performed By: #### C BC #### [facility] [address] [place] [address] Dr. Tasha Dodson MCV (RBC) [Entitic vol] 88.3 fL Normal 81.0-99.0 [facility] Comment on above: Performed By: #### C BC #### [facility] [address] [place] [address] Dr. Tasha Dodson MONO # 1.0 103/ul Critically high 0.3-0.8 [facility] Comment on above: Performed By: #### C BC #### [facility] [address] [place] [address] Dr. Tasha Dodson Monocytes/100 WBC (Bld) 7.4 % Normal 1.7-12.0 [facility] Comment on above: Performed By: #### C BC #### [facility] [address] [place] [address] Dr. Tasha Dodson NEUT # 9.5 103/ul Critically high 1.4-6.5 [facility] Comment on above: Performed By: #### C BC #### [facility] [address] [place] [address] Dr. Tasha Dodson Neutrophils/100 WBC (Bld) 70.1 % Normal 43.0-75.0 [facility] Comment on above: Performed By: #### C BC #### [facility] [address] [address] [address] Tasha Dodson Platelet mean volume (Bld) [Entitic vol] 8.0 fL Critically low 9.5-13.5 [facility] Comment on above: Performed By: #### C BC #### [facility] [address] [place] [address] Dr. Tasha Dodson PLT 492 103/ul Critically high 150-450 [facility] Comment on above: Performed By: #### C BC #### [facility] [address] [place] [address] Dr. Tasha Dodson RBC 4.36 106/ul Normal 4.20-5.40 [facility] Comment on above: Performed By: #### C BC #### [facility] [address] [place] [address] Dr. Tasha Dodson WBC 13.5 103/ul Critically high 4.0-11.0 [facility] Comment on above: Performed By: #### C BC #### [facility] [address] [place] [address] Dr. Tasha Dodson PROF 14(COMP METB)on 01-04- 022 Albumin [Mass/Vol] 3.8 g/dL Normal 3.4-5.0 [facility] Comment on above: Performed By: #### T SH, BMP #### [facility] [address] [place] [address] Dr. Tasha Dodson Albumin/Globulin [Mass ratio] 0.9 {ratio} Normal [facility] Comment on above: Performed By: #### T SH, BMP #### [facility] [address] [place] [address] Dr. Tasha Dodson ALP [Catalytic activity/Vol] 60 U/L Normal 46-116 [facility] Comment on above: Performed By: #### T SH, BMP #### [facility] [address] [place] [address] Dr. Tasha Dodson ALT [Catalytic activity/Vol] 26 U/L Normal 14-59 [facility] Comment on above: Performed By: #### T SH, BMP #### [facility] [address] [address] [address] Tasha Dodson Anion gap [Moles/Vol] 8.4 mmol/L Normal [facility] Comment on above: Performed By: #### T SH, BMP #### [facility] [address] [address] [address] Tasha Dodson AST [Catalytic activity/Vol] 19 U/L Normal 15-37 [facility] Comment on above: Performed By: #### T SH, BMP #### [facility] [address] [place] [address] Dr. Tasha Dodson Bilirubin [Mass/Vol] 0.4 mg/dL Normal 0.2-1.0 [facility] Comment on above: Performed By: #### T SH, BMP #### [facility] [address] [place] [address] Dr. Tasha Dodson Calcium [Mass/Vol] 10.1 mg/dL Normal 8.5-10.1 [facility] Comment on above: Performed By: #### T SH, BMP #### [facility] [address] [place] [address] Dr. aTsha Dodson Chloride [Moles/Vol] 92 mmol/L Critically low 98-107 [facility] Comment on above: Performed By: #### T SH, BMP #### [facility] [address] [place] [address] Dr. Tasha Dodson CO2 [Moles/Vol] 33.8 mmol/L Critically high 21.0-32.0 [facility] Comment on above: Performed By: #### T SH, BMP #### [facility] [address] [place] [address] Dr. Tasha Dodson Creatinine [Mass/Vol] 0.67 mg/dL Normal 0.55-1.02 [facility] Comment on above: Performed By: #### T SH, BMP #### [facility] [address] [place] [address] Dr. Tasha Dodson EGFR-AF BRAZILIAN >60 Normal >=60 [facility] Comment on above: Performed By: #### T SH, BMP #### [facility] [address] [address] [address] Tasha Dodson EGFR-NON AF BRAZILIAN >60 Normal >=60 [facility] Comment on above: Performed By: #### T SH, BMP #### [facility] [address] [address] [address] Tasha Dodson Globulin (S) [Mass/Vol] 4.1 g/dL Normal [facility] Comment on above: Performed By: #### T SH, BMP #### [facility] [address] [place] [address] Dr. Tasha Dodson Glucose [Mass/Vol] 106 mg/dL Normal 74-106 [facility] Comment on above: Performed By: #### T SH, BMP #### [facility] [address] [place] [address] Dr. Tasha Dodson Potassium [Moles/Vol] 3.2 mmol/L Critically low 3.5-5.1 [facility] Comment on above: Performed By: #### T JESI, BMP #### [facility] [address] [place] [address] Dr. Tasha Dodson Protein [Mass/Vol] 7.9 g/dL Normal 6.4-8.2 [facility] Comment on above: Performed By: #### T JESI, BMP #### [facility] [address] [place] [address] Dr. Tasha Dodson Sodium [Moles/Vol] 131 mmol/L Critically low 136-145 [facility] Comment on above: Performed By: #### T SH, BMP #### [facility] [address] [place] [address] Dr. Tasha Dodson Urea nitrogen [Mass/Vol] 10.0 mg/dL Normal 7.0-18.0 [facility] Comment on above: Performed By: #### T SH, BMP #### [facility] [address] [place] [address] Dr. Tasha Dodson Urea nitrogen/Creatinine [Mass ratio] 14.9 mg/mg Normal [facility] Comment on above: Performed By: #### T JESI, BMP #### [facility] [address] [place] [address] Dr. Tasha Dodson CBC AUTO DIFFon 12-29-2021 BASO # 0.1 103/ul Normal 0.0-0.1 [facility] Comment on above: Performed By: #### C BC #### [facility] [address] [place] [address] Dr. Tasha Dodson Basophils/100 WBC (Bld) 0.5 % Normal 0.2-2.0 [facility] Comment on above: Performed By: #### C BC #### [facility] [address] [place] [address] Dr. Tasha Dodson EO # 0.1 103/ul Normal 0.0-0.7 [facility] Comment on above: Performed By: #### C BC #### [facility] [address] [place] [address] Dr. Tasha Dodson Eosinophils/100 WBC (Bld) 0.4 % Critically low 0.9-7.0 [facility] Comment on above: Performed By: #### C BC #### [facility] [address] [place] [address] Dr. Tasha Dodson Erythrocyte distribution width (RBC) [Ratio] 13.0 % Normal 11.0-15.0 [facility] Comment on above: Performed By: #### C BC #### [facility] [address] [place] [address] Dr. Tasha Dodson Hematocrit (Bld) [Volume fraction] 34.0 % Critically low 36.0-48.0 [facility] Comment on above: Performed By: #### C BC #### [facility] [address] [place] [address] Dr. Tahsa Dodson Hemoglobin (Bld) [Mass/Vol] 12.0 g/dL Normal 12.0-16.0 [facility] Comment on above: Performed By: #### C BC #### [facility] [address] [place] [address] Dr. Tasha Dodson IG # 0.06 10e3/ul Critically high 0.00-0.03 [facility] Comment on above: Performed By: #### C BC #### [facility] [address] [address] [address] Tasha Dodson IG % 0.4 % Normal 0.0-0.5 [facility] Comment on above: Performed By: #### C BC #### [facility] [address] [place] [address] Dr. Tasha Dodson LYMPH # 2.5 103/ul Normal 1.2-3.8 [facility] Comment on above: Performed By: #### C BC #### [facility] [address] [place] [address] Dr. Tasha Dodson Lymphocytes/100 WBC (Bld) 17.4 % Critically low 20.5-60.0 [facility] Comment on above: Performed By: #### C BC #### [facility] [address] [place] [address] Dr. Tasha Dodson MANUAL DIFF REQ NO Normal [facility] Comment on above: Performed By: #### C BC #### [facility] [address] [place] [address] Dr. Tasha Dodson MCH (RBC) [Entitic mass] 31.0 pg Normal 26.7-34.0 [facility] Comment on above: Performed By: #### C BC #### [facility] [address] [place] [address] Dr. Tasha Dodosn MCHC (RBC) [Mass/Vol] 35.3 g/dL Critically high 29.9-35.2 [facility] Comment on above: Performed By: #### C BC #### [facility] [address] [place] [address] Dr. Tasha Dodson MCV (RBC) [Entitic vol] 87.9 fL Normal 81.0-99.0 [facility] Comment on above: Performed By: #### C BC #### [facility] [address] [place] [address] Dr. Tasha Dodson MONO # 1.0 103/ul Critically high 0.3-0.8 [facility] Comment on above: Performed By: #### C BC #### [facility] [address] [address] [address] Tasha Dodson Monocytes/100 WBC (Bld) 6.9 % Normal 1.7-12.0 [facility] Comment on above: Performed By: #### C BC #### [facility] [address] [address] [address] Tasha Dodson NEUT # 10.8 103/ul Critically high 1.4-6.5 [facility] Comment on above: Performed By: #### C BC #### [facility] [address] [address] [address] Tasha Dodson Neutrophils/100 WBC (Bld) 74.4 % Normal 43.0-75.0 [facility] Comment on above: Performed By: #### C BC #### [facility] [address] [place] [address] Dr. Tasha Dodson Platelet mean volume (Bld) [Entitic vol] 8.4 fL Critically low 9.5-13.5 [facility] Comment on above: Performed By: #### C BC #### [facility] [address] [place] [address] Dr. Tasha Dodson PLT 370 103/ul Normal 150-450 [facility] Comment on above: Performed By: #### C BC #### [facility] [address] [place] [address] Dr. Tasha Dodson RBC 3.87 106/ul Critically low 4.20-5.40 [facility] Comment on above: Performed By: #### C BC #### [facility] [address] [place] [address] Dr. Tasha Dodson WBC 14.5 103/ul Critically high 4.0-11.0 [facility] Comment on above: Performed By: #### C BC #### [facility] [address] [place] [address] Dr. Tasha Dodson PROF 14(COMP METB)on 022 Albumin [Mass/Vol] 2.8 g/dL Critically low 3.4-5.0 [facility] Comment on above: Performed By: #### T SH, BMP #### [facility] [address] [place] [address] Dr. Tasha Dodson Albumin/Globulin [Mass ratio] 0.9 {ratio} Normal [facility] Comment on above: Performed By: #### T SH, BMP #### [facility] [address] [place] [address] Dr. Tasha Dodson ALP [Catalytic activity/Vol] 51 U/L Normal 46-116 [facility] Comment on above: Performed By: #### T SH, BMP #### [facility] [address] [address] [address] Tasha Dodson ALT [Catalytic activity/Vol] 15 U/L Normal 14-59 [facility] Comment on above: Performed By: #### T SH, BMP #### [facility] [address] [place] [address] Dr. Tasha Dodson Anion gap [Moles/Vol] 9.7 mmol/L Normal [facility] Comment on above: Performed By: #### T SH, BMP #### [facility] [address] [place] [address] Dr. Tasha Dodson AST [Catalytic activity/Vol] 15 U/L Normal 15-37 [facility] Comment on above: Performed By: #### T SH, BMP #### [facility] [address] [place] [address] Dr. Tasha Dodson Bilirubin [Mass/Vol] 0.4 mg/dL Normal 0.2-1.0 [facility] Comment on above: Performed By: #### T SH, BMP #### [facility] [address] [place] [address] Dr. Tasha Dodson Calcium [Mass/Vol] 8.6 mg/dL Normal 8.5-10.1 [facility] Comment on above: Performed By: #### T SH, BMP #### [facility] [address] [place] [address] Dr. Tasha Dodson Chloride [Moles/Vol] 97 mmol/L Critically low 98-107 [facility] Comment on above: Performed By: #### T SH, BMP #### [facility] [address] [address] [address] Tasha Dodson CO2 [Moles/Vol] 25.8 mmol/L Normal 21.0-32.0 [facility] Comment on above: Performed By: #### T SH, BMP #### [facility] [address] [address] [address] Tasha Dodson Creatinine [Mass/Vol] 0.52 mg/dL Critically low 0.55-1.02 [facility] Comment on above: Performed By: #### T SH, BMP #### [facility] [address] [place] [address] Dr. Tasha Dodson EGFR-AF BRAZILIAN >60 Normal >=60 [facility] Comment on above: Performed By: #### T SH, BMP #### [facility] [address] [place] [address] Dr. Tasha Dodson EGFR-NON AF BRAZILIAN >60 Normal >=60 [facility] Comment on above: Performed By: #### T SH, BMP #### [facility] [address] [place] [address] Dr. Tasha Dodson Globulin (S) [Mass/Vol] 3.2 g/dL Normal [facility] Comment on above: Performed By: #### T SH, BMP #### [facility] [address] [place] [address] Dr. Tasha Dodson Glucose [Mass/Vol] 117 mg/dL Critically high 74-106 [facility] Comment on above: Performed By: #### T SH, BMP #### [facility] [address] [place] [address] Dr. Tasha Dodson Potassium [Moles/Vol] 3.5 mmol/L Normal 3.5-5.1 [facility] Comment on above: Performed By: #### T SH, BMP #### [facility] [address] [place] [address] Dr. Tasha Dodson Protein [Mass/Vol] 6.0 g/dL Critically low 6.4-8.2 [facility] Comment on above: Performed By: #### T SH, BMP #### [facility] [address] [place] [address] Dr. Tasha Dodson Sodium [Moles/Vol] 129 mmol/L Critically low 136-145 [facility] Comment on above: Performed By: #### T JESI, BMP #### [facility] [address] [place] [address] Dr. Tasha Dodson Urea nitrogen [Mass/Vol] 4.0 mg/dL Critically low 7.0-18.0 [facility] Comment on above: Performed By: #### T JESI, BMP #### [facility] [address] [place] [address] Dr. Tasha Dodson Urea nitrogen/Creatinine [Mass ratio] 7.7 mg/mg Normal [facility] Comment on above: Performed By: #### T JESI, BMP #### [facility] [address] [place] [address] Dr. Tasha Dodson CBC AUTO DIFFon 12-28-2021 BASO # 0.1 103/ul Normal 0.0-0.1 [facility] Comment on above: Performed By: #### C BC #### [facility] [address] [place] [address] Dr. Tasha Dodson Basophils/100 WBC (Bld) 0.4 % Normal 0.2-2.0 [facility] Comment on above: Performed By: #### C BC #### [facility] [address] [place] [address] Dr. Tasha Dodson EO # 0.1 103/ul Normal 0.0-0.7 [facility] Comment on above: Performed By: #### C BC #### [facility] [address] [place] [address] Dr. Tasha Dodson Eosinophils/100 WBC (Bld) 0.4 % Critically low 0.9-7.0 [facility] Comment on above: Performed By: #### C BC #### [facility] [address] [place] [address] Dr. Tasha Dodson Erythrocyte distribution width (RBC) [Ratio] 12.9 % Normal 11.0-15.0 [facility] Comment on above: Performed By: #### C BC #### [facility] [address] [place] [address] Dr. Tasha Dodson Hematocrit (Bld) [Volume fraction] 34.2 % Critically low 36.0-48.0 [facility] Comment on above: Performed By: #### C BC #### [facility] [address] [place] [address] Dr. Tasha Dodson Hemoglobin (Bld) [Mass/Vol] 12.4 g/dL Normal 12.0-16.0 [facility] Comment on above: Performed By: #### C BC #### [facility] [address] [place] [address] Dr. Tasha Dodson IG # 0.09 10e3/ul Critically high 0.00-0.03 [facility] Comment on above: Performed By: #### C BC #### [facility] [address] [place] [address] Dr. Tasha Dodson IG % 0.6 % Critically high 0.0-0.5 [facility] Comment on above: Performed By: #### C BC #### [facility] [address] [place] [address] Dr. Tasha Dodson LYMPH # 2.2 103/ul Normal 1.2-3.8 [facility] Comment on above: Performed By: #### C BC #### [facility] [address] [place] [address] Dr. Tasha Dodson Lymphocytes/100 WBC (Bld) 13.6 % Critically low 20.5-60.0 [facility] Comment on above: Performed By: #### C BC #### [facility] [address] [place] [address] Dr. Tasha Dodson MANUAL DIFF REQ NO Normal [facility] Comment on above: Performed By: #### C BC #### [facility] [address] [place] [address] Dr. Tasha Dodson MCH (RBC) [Entitic mass] 31.2 pg Normal 26.7-34.0 [facility] Comment on above: Performed By: #### C BC #### [facility] [address] [address] [address] Tasha Dodson MCHC (RBC) [Mass/Vol] 36.3 g/dL Critically high 29.9-35.2 [facility] Comment on above: Performed By: #### C BC #### [facility] [address] [address] [address] Tasha Dodson MCV (RBC) [Entitic vol] 85.9 fL Normal 81.0-99.0 [facility] Comment on above: Performed By: #### C BC #### [facility] [address] [address] [address] Tasha Dodson MONO # 1.3 103/ul Critically high 0.3-0.8 [facility] Comment on above: Performed By: #### C BC #### [facility] [address] [place] [address] Dr. Tasha Dodson Monocytes/100 WBC (Bld) 7.8 % Normal 1.7-12.0 [facility] Comment on above: Performed By: #### C BC #### [facility] [address] [address] [address] Tasha Dodson NEUT # 12.4 103/ul Critically high 1.4-6.5 [facility] Comment on above: Performed By: #### C BC #### [facility] [address] [place] [address] Dr. Tasha Dodson Neutrophils/100 WBC (Bld) 77.2 % Critically high 43.0-75.0 [facility] Comment on above: Performed By: #### C BC #### [facility] [address] [address] [address] Tasha Dodson Platelet mean volume (Bld) [Entitic vol] 8.6 fL Critically low 9.5-13.5 [facility] Comment on above: Performed By: #### C BC #### [facility] [address] [place] [address] Dr. Tasha Dodson PLT 385 103/ul Normal 150-450 [facility] Comment on above: Performed By: #### C BC #### [facility] [address] [address] [address] Tasha Dodson RBC 3.98 106/ul Critically low 4.20-5.40 [facility] Comment on above: Performed By: #### C BC #### [facility] [address] [address] [address] Tasha Dodson WBC 16.1 103/ul Critically high 4.0-11.0 [facility] Comment on above: Performed By: #### C BC #### [facility] [address] [place] [address] Dr. Tasha Dodson PROF 14(COMP METB)on 022 Albumin [Mass/Vol] 3.2 g/dL Critically low 3.4-5.0 [facility] Comment on above: Performed By: #### T SH, BMP #### [facility] [address] [place] [address] Dr. Tasha Dodson Albumin/Globulin [Mass ratio] 1.0 {ratio} Normal [facility] Comment on above: Performed By: #### T SH, BMP #### [facility] [address] [place] [address] Dr. Tasha Dodson ALP [Catalytic activity/Vol] 51 U/L Normal 46-116 [facility] Comment on above: Performed By: #### T SH, BMP #### [facility] [address] [place] [address] Dr. Tasha Dodson ALT [Catalytic activity/Vol] 17 U/L Normal 14-59 [facility] Comment on above: Performed By: #### T SH, BMP #### [facility] [address] [place] [address] Dr. Tasha Dodson Anion gap [Moles/Vol] 10.5 mmol/L Normal [facility] Comment on above: Performed By: #### T SH, BMP #### [facility] [address] [place] [address] Dr. Tasha Dodson AST [Catalytic activity/Vol] 18 U/L Normal 15-37 [facility] Comment on above: Performed By: #### T SH, BMP #### [facility] [address] [address] [address] Tasha Ddoson Bilirubin [Mass/Vol] 0.4 mg/dL Normal 0.2-1.0 [facility] Comment on above: Performed By: #### T SH, BMP #### [facility] [address] [place] [address] Dr. Tasha Dodson Calcium [Mass/Vol] 8.3 mg/dL Critically low 8.5-10.1 [facility] Comment on above: Performed By: #### T SH, BMP #### [facility] [address] [place] [address] Dr. Tasha Dodson Chloride [Moles/Vol] 96 mmol/L Critically low 98-107 [facility] Comment on above: Performed By: #### T SH, BMP #### [facility] [address] [place] [address] Dr. Tasha Dodson CO2 [Moles/Vol] 24.5 mmol/L Normal 21.0-32.0 [facility] Comment on above: Performed By: #### T SH, BMP #### [facility] [address] [place] [address] Dr. Tasha Dodson Creatinine [Mass/Vol] 0.54 mg/dL Critically low 0.55-1.02 [facility] Comment on above: Performed By: #### T SH, BMP #### [facility] [address] [place] [address] Dr. Tasha Dodson EGFR-AF BRAZILIAN >60 Normal >=60 [facility] Comment on above: Performed By: #### T SH, BMP #### [facility] [address] [place] [address] Dr. Tasha Dodson EGFR-NON AF BRAZILIAN >60 Normal >=60 [facility] Comment on above: Performed By: #### T SH, BMP #### [facility] [address] [place] [address] Dr. Tasha Dodson Globulin (S) [Mass/Vol] 3.1 g/dL Normal [facility] Comment on above: Performed By: #### T SH, BMP #### [facility] [address] [place] [address] Dr. Tasha Dodson Glucose [Mass/Vol] 123 mg/dL Critically high 74-106 [facility] Comment on above: Performed By: #### T , BMP #### [facility] [address] [place] [address] Dr. Tasha Dodson Potassium [Moles/Vol] 3.0 mmol/L Critically low 3.5-5.1 [facility] Comment on above: Performed By: #### T , BMP #### [facility] [address] [place] [address] Dr. Tasha Dodson Protein [Mass/Vol] 6.3 g/dL Critically low 6.4-8.2 [facility] Comment on above: Performed By: #### T , BMP #### [facility] [address] [place] [address] Dr. Tasha Dodson Sodium [Moles/Vol] 128 mmol/L Critically low 136-145 [facility] Comment on above: Performed By: #### T , BMP #### [facility] [address] [place] [address] Dr. Tasha Dodson Urea nitrogen [Mass/Vol] 5.0 mg/dL Critically low 7.0-18.0 [facility] Comment on above: Performed By: #### T , BMP #### [facility] [address] [place] [address] Dr. Tasha Dodson Urea nitrogen/Creatinine [Mass ratio] 9.3 mg/mg Normal [facility] Comment on above: Performed By: #### T , BMP #### [facility] [address] [place] [address] Dr. Tasha Dodson SODIUM RANDOM URINEon 2021 Sodium (U) [Moles/Vol] 135 mmol/L Critically high 30-90 [facility] Comment on above: Performed By: #### C BC #### [facility] [address] [place] [address] Dr. Tasha Dodson CBC AUTO DIFFon 12-27-2021 BASO # 0.0 103/ul Normal 0.0-0.1 [facility] Comment on above: Performed By: #### C BC #### [facility] [address] [place] [address] Dr. Tasha Dodson Basophils/100 WBC (Bld) 0.2 % Normal 0.2-2.0 [facility] Comment on above: Performed By: #### C BC #### [facility] [address] [place] [address] Dr. Tasha Dodson EO # 0.3 103/ul Normal 0.0-0.7 [facility] Comment on above: Performed By: #### C BC #### [facility] [address] [place] [address] Dr. Tasha Dodson Eosinophils/100 WBC (Bld) 2.3 % Normal 0.9-7.0 [facility] Comment on above: Performed By: #### C BC #### [facility] [address] [place] [address] Dr. Tasha Dodson Erythrocyte distribution width (RBC) [Ratio] 12.4 % Normal 11.0-15.0 [facility] Comment on above: Performed By: #### C BC #### [facility] [address] [place] [address] Dr. Tasha Dodson Hematocrit (Bld) [Volume fraction] 35.4 % Critically low 36.0-48.0 [facility] Comment on above: Performed By: #### C BC #### [facility] [address] [place] [address] Dr. Tasha Dodson Hemoglobin (Bld) [Mass/Vol] 12.9 g/dL Normal 12.0-16.0 [facility] Comment on above: Performed By: #### C BC #### [facility] [address] [place] [address] Dr. Tasha Dodson IG # 0.06 10e3/ul Critically high 0.00-0.03 [facility] Comment on above: Performed By: #### C BC #### [facility] [address] [place] [address] Dr. Tasha Dodson IG % 0.5 % Normal 0.0-0.5 [facility] Comment on above: Performed By: #### C BC #### [facility] [address] [address] [address] Tasha Dodson LYMPH # 2.0 103/ul Normal 1.2-3.8 [facility] Comment on above: Performed By: #### C BC #### [facility] [address] [address] [address] Tasha Dodson Lymphocytes/100 WBC (Bld) 15.7 % Critically low 20.5-60.0 [facility] Comment on above: Performed By: #### C BC #### [facility] [address] [place] [address] Dr. Tasha Dodson MANUAL DIFF REQ NO Normal [facility] Comment on above: Performed By: #### C BC #### [facility] [address] [place] [address] Dr. Tasha Dodson MCH (RBC) [Entitic mass] 31.0 pg Normal 26.7-34.0 [facility] Comment on above: Performed By: #### C BC #### [facility] [address] [place] [address] Dr. Tahsa Dodson MCHC (RBC) [Mass/Vol] 36.4 g/dL Critically high 29.9-35.2 [facility] Comment on above: Performed By: #### C BC #### [facility] [address] [place] [address] Dr. Tasha Dodson MCV (RBC) [Entitic vol] 85.1 fL Normal 81.0-99.0 [facility] Comment on above: Performed By: #### C BC #### [facility] [address] [place] [address] Dr. Tasha Dodson MONO # 1.1 103/ul Critically high 0.3-0.8 [facility] Comment on above: Performed By: #### C BC #### [facility] [address] [place] [address] Dr. Tasha Dodson Monocytes/100 WBC (Bld) 8.3 % Normal 1.7-12.0 [facility] Comment on above: Performed By: #### C BC #### [facility] [address] [address] [address] Tasha Dodson NEUT # 9.5 103/ul Critically high 1.4-6.5 [facility] Comment on above: Performed By: #### C BC #### [facility] [address] [id number] Tasha Dodson Neutrophils/100 WBC (Bld) 73.0 % Normal 43.0-75.0 [facility] Comment on above: Performed By: #### C BC #### [facility] [address] [address] [address] Tasha Dodson Platelet mean volume (Bld) [Entitic vol] 8.3 fL Critically low 9.5-13.5 [facility] Comment on above: Performed By: #### C BC #### [facility] [address] [address] [address] Tasha Dodson PLT 408 103/ul Normal 150-450 [facility] Comment on above: Performed By: #### C BC #### [facility] [address] [address] [address] Tasha Dodson RBC 4.16 106/ul Critically low 4.20-5.40 [facility] Comment on above: Performed By: #### C BC #### [facility] [id number] Tasha Dodson WBC 13.0 103/ul Critically high 4.0-11.0 [facility] Comment on above: Performed By: #### C BC #### [facility] [id number] Tasha Dodson CULTURE SPUTUMon 12-27-2021 CULTURE SPUTUM Culture Observations : NORMAL RESPIRATORY AMADOU. Normal [facility] Comment on above: Performed By: #### C BC #### [facility] [address] [address] [address] Tasha Dodson PROF 14(COMP METB)on 022 Albumin [Mass/Vol] 3.4 g/dL Normal 3.4-5.0 [facility] Comment on above: Performed By: #### C MADM, LIPA, BNP, CMP #### [facility] [address] [place] [address] Dr. Tasha Dodson Albumin/Globulin [Mass ratio] 1.0 {ratio} Normal [facility] Comment on above: Performed By: #### C MADM, LIPA, BNP, CMP #### [facility] [address] [place] [address] Dr. Tasha Dodson ALP [Catalytic activity/Vol] 54 U/L Normal 46-116 [facility] Comment on above: Performed By: #### C MADM, LIPA, BNP, CMP #### [facility] [address] [place] [address] Dr. Tasha Dodson ALT [Catalytic activity/Vol] 20 U/L Normal 14-59 [facility] Comment on above: Performed By: #### C MADM, LIPA, BNP, CMP #### [facility] [address] [place] [address] Dr. Tasha Dodson Anion gap [Moles/Vol] 10.8 mmol/L Normal [facility] Comment on above: Performed By: #### C MADM, LIPA, BNP, CMP #### [facility] [address] [place] [address] Dr. Tasha Dodson AST [Catalytic activity/Vol] 19 U/L Normal 15-37 [facility] Comment on above: Performed By: #### C MADM, LIPA, BNP, CMP #### [facility] [address] [place] [address] Dr. Tasha Dodson Bilirubin [Mass/Vol] 0.5 mg/dL Normal 0.2-1.0 [facility] Comment on above: Performed By: #### C MADM, LIPA, BNP, CMP #### [facility] [address] [place] [address] Dr. Tasha Dodson Calcium [Mass/Vol] 8.3 mg/dL Critically low 8.5-10.1 [facility] Comment on above: Performed By: #### C MADM, LIPA, BNP, CMP #### [facility] [address] [address] [address] Tasha Dodson Chloride [Moles/Vol] 89 mmol/L Critically low 98-107 [facility] Comment on above: Performed By: #### C MADM, LIPA, BNP, CMP #### [facility] [address] [place] [address] Dr. Tasha Dodson CO2 [Moles/Vol] 27.0 mmol/L Normal 21.0-32.0 [facility] Comment on above: Performed By: #### C MADM, LIPA, BNP, CMP #### [facility] [address] [address] [address] Tasha Dodson Creatinine [Mass/Vol] 0.69 mg/dL Normal 0.55-1.02 [facility] Comment on above: Performed By: #### C MADM, LIPA, BNP, CMP #### [facility] [address] [place] [address] Dr. Tasha Dodson EGFR-AF BRAZILIAN >60 Normal >=60 [facility] Comment on above: Performed By: #### C MADM, LIPA, BNP, CMP #### [facility] [address] [place] [address] Dr. Tasha Dodson EGFR-NON AF BRAZILIAN >60 Normal >=60 [facility] Comment on above: Performed By: #### C MADM, LIPA, BNP, CMP #### [facility] [address] [address] [address] Tasha Dodson Globulin (S) [Mass/Vol] 3.3 g/dL Normal [facility] Comment on above: Performed By: #### C MADM, LIPA, BNP, CMP #### [facility] [address] [place] [address] Dr. Tasha Dodson Glucose [Mass/Vol] 115 mg/dL Critically high 74-106 [facility] Comment on above: Performed By: #### C MADM, LIPA, BNP, CMP #### [facility] [address] [place] [address] Dr. Tasha Dodson Potassium [Moles/Vol] 2.7 mmol/L Critically low 3.5-5.1 [facility] Comment on above: Result Comment: Test Repeated. Critical Value Verified Performed By: #### C MADM, LIPA, BNP, CMP #### [facility] [address] [address] [address] Tasha Dodson Protein [Mass/Vol] 6.7 g/dL Normal 6.4-8.2 [facility] Comment on above: Performed By: #### C MADM, LIPA, BNP, CMP #### [facility] [address] [address] [address] Tasha Dodson Sodium [Moles/Vol] 123 mmol/L Critically low 136-145 [facility] Comment on above: Result Comment: Test Repeated. Critical Value Verified Performed By: #### C MADM, LIPA, BNP, CMP #### [facility] [address] [address] [address] Tasha Dodson Urea nitrogen [Mass/Vol] 6.0 mg/dL Critically low 7.0-18.0 [facility] Comment on above: Performed By: #### C MADM, LIPA, BNP, CMP #### [facility] [address] [place] [address] Dr. Tasha Dodson Urea nitrogen/Creatinine [Mass ratio] 8.7 mg/mg Normal [facility] Comment on above: Performed By: #### C MADM, LIPA, BNP, CMP #### [facility] [address] [address] [address] Tasha Dodson SPUTUM GRAM STAINon 12-28-19 COMMENTS Normal [facility] Comment on above: Performed By: #### T SH, BMP #### [facility] [address] [address] [address] Tasha Dodson DIPHTHEROIDS Normal [facility] Comment on above: Performed By: #### T SH, BMP #### [facility] [address] [place] [address] Dr. Tasha Dodson EPITHELIALS <25 Normal [facility] Comment on above: Performed By: #### T SH, BMP #### [facility] [address] [address] [address] Tasha Dodson FUNGAL ELEMENTS Normal [facility] Comment on above: Performed By: #### T SH, BMP #### [facility] [address] [address] [address] Tasha Dodson GRAM NEG BACILLI Normal [facility] Comment on above: Performed By: #### T SH, BMP #### [facility] [address] [address] [address] Tasha Dodson GRAM NEG DIPPLOCOCCI Normal [facility] Comment on above: Performed By: #### T SH, BMP #### [facility] [address] [address] [address] Tasha Dodson GRAM POS BACILLI Normal [facility] Comment on above: Performed By: #### T SH, BMP #### [facility] [address] [place] [address] Dr. Tasha Dodson GRAM POSITIVE COCCI MODERATE Normal [facility] Comment on above: Performed By: #### T SH, BMP #### [facility] [address] [place] [address] Dr. Tasha Dodson WBC (Bld) [#/Vol] 10*3/uL Normal [facility] Comment on above: Performed By: #### T SH, BMP #### [facility] [address] [place] [address] Dr. Tasha Dodsno BNPon 12-26-2021 Natriuretic peptide B (Bld) [Mass/Vol] 148.0 pg/mL Normal <=1,800.0 [facility] Comment on above: Performed By: #### C MADM, LIPA, BNP, CMP #### [facility] [address] [place] [address] Dr. Tasha Dodson CARDIAC ANGELO ADMITon 022 CK [Catalytic activity/Vol] 139 U/L Normal 26-192 [facility] Comment on above: Performed By: #### C MADM, LIPA, BNP, CMP #### [facility] [address] [place] [address] Dr. Tasha Dodson CK.MB [Mass/Vol] 2.43 ng/mL Normal <=3.60 [facility] Comment on above: Performed By: #### C MADM, LIPA, BNP, CMP #### [facility] [address] [address] [address] Tasha Dodson HSTROP 12.2 pg/mL Normal 4.0-51.3 [facility] Comment on above: Result Comment: CUT- OFF POINTS HAVE BEEN ESTABLISHED BASED ON THE FOURTH UNIVERSAL DEFINITIONS OF MYOCARDIAL INFARCTION. THE UPPER REFERENCE LIMIT (URL) OF TROPONIN, DEFINED THE 99TH PERCENTILE OF cTnI DISTRIBUTION IN A REFERENCE POPULATION, HAS BEEN CONFIRMED THE DECISION THRESHOLD FOR IA DIAGNOSIS. Performed By: #### C MADM, LIPA, BNP, CMP #### [facility] [address] [place] [address] Dr. Tasha Dodson ELIZABETH 110 ng/mL Critically high 9-82 [facility] Comment on above: Performed By: #### C MADM, LIPA, BNP, CMP #### [facility] [address] [place] [address] Dr. Tasha Dodson CBC AUTO DIFFon 12-26-2021 BASO # 0.0 103/ul Normal 0.0-0.1 [facility] Comment on above: Performed By: #### C MADM, LIPA, BNP, CMP #### [facility] [address] [place] [address] Dr. Tasha Dodson Basophils/100 WBC (Bld) 0.3 % Normal 0.2-2.0 [facility] Comment on above: Performed By: #### C MADM, LIPA, BNP, CMP #### [facility] [address] [place] [address] Dr. Tasha Dodson EO # 0.1 103/ul Normal 0.0-0.7 [facility] Comment on above: Performed By: #### C MADM, LIPA, BNP, CMP #### [facility] [address] [place] [address] Dr. Tasha Dodson Eosinophils/100 WBC (Bld) 0.7 % Critically low 0.9-7.0 [facility] Comment on above: Performed By: #### C MADM, LIPA, BNP, CMP #### [facility] [address] [place] [address] Dr. Tasha Dodson Erythrocyte distribution width (RBC) [Ratio] 12.4 % Normal 11.0-15.0 [facility] Comment on above: Performed By: #### C MADM, LIPA, BNP, CMP #### [facility] [address] [place] [address] Dr. Tasha Dodson Hematocrit (Bld) [Volume fraction] 38.9 % Normal 36.0-48.0 [facility] Comment on above: Performed By: #### C MADM, LIPA, BNP, CMP #### [facility] [address] [place] [address] Dr. Tasha Dodson Hemoglobin (Bld) [Mass/Vol] 14.4 g/dL Normal 12.0-16.0 [facility] Comment on above: Performed By: #### C MADM, LIPA, BNP, CMP #### [facility] [address] [place] [address] Dr. Tasha Dodson IG # 0.08 10e3/ul Critically high 0.00-0.03 [facility] Comment on above: Performed By: #### C MADM, LIPA, BNP, CMP #### [facility] [address] [place] [address] Dr. Tasha Dodson IG % 0.5 % Normal 0.0-0.5 [facility] Comment on above: Performed By: #### C MADM, LIPA, BNP, CMP #### [facility] [address] [place] [address] Dr. Tasha Dodson LYMPH # 2.2 103/ul Normal 1.2-3.8 [facility] Comment on above: Performed By: #### C MADM, LIPA, BNP, CMP #### [facility] [address] [place] [address] Dr. Tasha Dodson Lymphocytes/100 WBC (Bld) 15.0 % Critically low 20.5-60.0 [facility] Comment on above: Performed By: #### C MADM, LIPA, BNP, CMP #### [facility] [address] [place] [address] Dr. Tasha Dodson MANUAL DIFF REQ NO Normal [facility] Comment on above: Performed By: #### C MADM, LIPA, BNP, CMP #### [facility] [address] [place] [address] Dr. Tasha Dodson MCH (RBC) [Entitic mass] 31.6 pg Normal 26.7-34.0 [facility] Comment on above: Performed By: #### C MADM, LIPA, BNP, CMP #### [facility] [address] [place] [address] Dr. Tasha Dodson MCHC (RBC) [Mass/Vol] 37.0 g/dL Critically high 29.9-35.2 [facility] Comment on above: Performed By: #### C MADM, LIPA, BNP, CMP #### [facility] [address] [place] [address] Dr. Tasha Dodson MCV (RBC) [Entitic vol] 85.3 fL Normal 81.0-99.0 [facility] Comment on above: Performed By: #### C MADM, LIPA, BNP, CMP #### [facility] [address] [place] [address] Dr. Tasha Dodson MONO # 1.0 103/ul Critically high 0.3-0.8 [facility] Comment on above: Performed By: #### C MADM, LIPA, BNP, CMP #### [facility] [address] [place] [address] Dr. Tasha Dodson Monocytes/100 WBC (Bld) 6.8 % Normal 1.7-12.0 [facility] Comment on above: Performed By: #### C MADM, LIPA, BNP, CMP #### [facility] [address] [place] [address] Dr. Tasha Dodson NEUT # 11.5 103/ul Critically high 1.4-6.5 [facility] Comment on above: Performed By: #### C MADM, LIPA, BNP, CMP #### [facility] [address] [place] [address] Dr. Tasha Dodson Neutrophils/100 WBC (Bld) 76.7 % Critically high 43.0-75.0 [facility] Comment on above: Performed By: #### C MADM, LIPA, BNP, CMP #### [facility] [address] [place] [address] Dr. Tasha Dodson Platelet mean volume (Bld) [Entitic vol] 8.6 fL Critically low 9.5-13.5 [facility] Comment on above: Performed By: #### C MADM, LIPA, BNP, CMP #### [facility] [address] [place] [address] Dr. Tasha Dodson PLT 491 103/ul Critically high 150-450 [facility] Comment on above: Performed By: #### C MADM, LIPA, BNP, CMP #### [facility] [address] [place] [address] Dr. Tasha Dodson RBC 4.56 106/ul Normal 4.20-5.40 [facility] Comment on above: Performed By: #### C MADM, LIPA, BNP, CMP #### [facility] [address] [place] [address] Dr. Tasha Dodson WBC 15.0 103/ul Critically high 4.0-11.0 [facility] Comment on above: Performed By: #### C MADM, LIPA, BNP, CMP #### [facility] [address] [place] [address] Dr. Tasha Dodson CULTURE URINEon 12-26-2021 CULTURE URINE Culture Observations : LIGHT GROWTH OF MIXED GENITAL AMADOU. NO POTENTIAL PATHOGENS SEEN. Normal [facility] Comment on above: Performed By: #### C BC #### [facility] [address] [place] [address] Dr. Tasha Dodson [facility]on SARS-CoV-2 (COVID-19) RNA CARITO+probe Ql (Unsp spec) Not detected Normal NOT DETECTED [facility] Comment on above: Result Comment: When [...] for this test is supported by the Supervisor [employer] of [employer] and Human Service's declaration that [...] #### C MADM, LIPA, BNP, CMP #### [facility] [address] [place] [address] Dr. Tasha Dodson ER URINE PROFILEon 2 Bilirubin Ql (U) Negative Normal NEGATIVE [facility] Comment on above: Performed By: #### T SH, BMP #### [facility] [address] [place] [address] Dr. Tasha Dodson Clarity (U) CLEAR Normal CLEAR [facility] Comment on above: Performed By: #### T SH, BMP #### [facility] [address] [place] [address] Dr. Tasha Dodson Color (U) LT. YELLOW Normal YELLOW [facility] Comment on above: Performed By: #### T SH, BMP #### [facility] [address] [place] [address] Dr. Tasha Dodson ERUAHD A micrscopic examination will be performed if indicated. Normal [facility] Comment on above: Performed By: #### T SH, BMP #### [facility] [address] [place] [address] Dr. Tasha Dodson Glucose Ql (U) Negative Normal NEGATIVE [facility] Comment on above: Performed By: #### T SH, BMP #### [facility] [address] [place] [address] Dr. Tasha Dodson Hemoglobin Ql (U) TRACE-INTACT Abnormal NEGATIVE [facility] Comment on above: Performed By: #### T SH, BMP #### [facility] [address] [place] [address] Dr. Tasha Dodson Ketones Ql (U) TRACE Abnormal NEGATIVE [facility] Comment on above: Performed By: #### T SH, BMP #### [facility] [address] [place] [address] Dr. Tasha Dodson LEUKOCYTES Negative Normal NEGATIVE [facility] Comment on above: Performed By: #### T SH, BMP #### [facility] [address] [place] [address] Dr. Tasha Dodson Nitrite Ql (U) Negative Normal NEGATIVE [facility] Comment on above: Performed By: #### T SH, BMP #### [facility] [address] [place] [address] Dr. Tasha Dodson pH (U) 7.0 [pH] Normal 5-9 [facility] Comment on above: Performed By: #### T SH, BMP #### [facility] [address] [place] [address] Dr. Tasha Dodson SPEC GRAVITY 1.010 Normal 1.005-<=1.0 25 [facility] Comment on above: Performed By: #### T SH, BMP #### [facility] [address] [place] [address] Dr. Tasha Dodson UA PROTEIN Negative Normal NEGATIVE/ TRACE [facility] Comment on above: Performed By: #### T SH, BMP #### [facility] [address] [place] [address] Dr. Tasha Dodson UR MICRO IND INDICATED Normal [facility] Comment on above: Performed By: #### T SH, BMP #### [facility] [address] [place] [address] Dr. Tasha Dodson Urobilinogen Qn (U) 0.2 {Juan'U}/dL Normal 0.2 - 1. 0 [facility] Comment on above: Performed By: #### T SH, BMP #### [facility] [address] [place] [address] Dr. Tasha Dodson INFLUENZA A AND B AGon 12-26 INFLUANEGH SEE BELOW Normal [facility] Comment on above: Result Comment: Nega tive for Flu A protein angiten. Infection due to Flu A cannot be ruled out. Flu A angiten in the sample may be below the detection limit of the test. Performed By: #### C BC #### [facility] [address] [place] [address] Dr. Tasha Dodson INFLUBNEGH SEE BELOW Normal [facility] Comment on above: Result Comment: Nega tive for Flu B protein antigen. Infection due to Flu B cannot be ruled out. Flu B antigen in the sample may be below the detection limit of the test. Performed By: #### C BC #### [facility] [address] [place] [address] Dr. Tasha Dodson INFLUENZA A AG Negative Normal NEGATIVE SEE COMMENT [facility] Comment on above: Performed By: #### C BC #### [facility] [address] [place] [address] Dr. Tasha Dodson INFLUENZA B AG Negative Normal NEGATIVE SEE COMMENT [facility] Comment on above: Performed By: #### C BC #### [facility] [address] [place] [address] Dr. Tasha Dodson INTERNAL CONTROLS Within Normal Limits Normal Wi thin Normal Limits [facility] Comment on above: Performed By: #### C BC #### [facility] [address] [place] [address] Dr. Tasha Dodson LACTATE/LACTIC ACIDon 2021 Lactate [Moles/Vol] 1.5 mmol/L Normal 0.4-1.9 [facility] Comment on above: Performed By: #### T SH, BMP #### [facility] [address] [place] [address] Dr. Tasha Dodson LIPASEon 12-26-2021 Lipase [Catalytic activity/Vol] 96.0 U/L Normal 73.0-393.0 [facility] Comment on above: Performed By: #### C MADM, LIPA, BNP, CMP #### [facility] [address] [place] [address] Dr. Tasha Dodson PROF 14(COMP METB)on 022 Albumin [Mass/Vol] 4.2 g/dL Normal 3.4-5.0 [facility] Comment on above: Performed By: #### C MADM, LIPA, BNP, CMP #### [facility] [address] [place] [address] Dr. Tasha Dodson Albumin/Globulin [Mass ratio] 1.1 {ratio} Normal [facility] Comment on above: Performed By: #### C MADM, LIPA, BNP, CMP #### [facility] [address] [place] [address] Dr. Tasha Dodson ALP [Catalytic activity/Vol] 68 U/L Normal 46-116 [facility] Comment on above: Performed By: #### C MADM, LIPA, BNP, CMP #### [facility] [address] [place] [address] Dr. Tasha Dodson ALT [Catalytic activity/Vol] 23 U/L Normal 14-59 [facility] Comment on above: Performed By: #### C MADM, LIPA, BNP, CMP #### [facility] [address] [place] [address] Dr. Tasha Dodson Anion gap [Moles/Vol] 12.3 mmol/L Normal [facility] Comment on above: Performed By: #### C MADM, LIPA, BNP, CMP #### [facility] [address] [place] [address] Dr. Tasha Dodson AST [Catalytic activity/Vol] 25 U/L Normal 15-37 [facility] Comment on above: Performed By: #### C MADM, LIPA, BNP, CMP #### [facility] [address] [place] [address] Dr. Tasha Dodson Bilirubin [Mass/Vol] 0.7 mg/dL Normal 0.2-1.0 [facility] Comment on above: Performed By: #### C MADM, LIPA, BNP, CMP #### [facility] [address] [place] [address] Dr. Tasha Dodson Calcium [Mass/Vol] 9.5 mg/dL Normal 8.5-10.1 [facility] Comment on above: Performed By: #### C MADM, LIPA, BNP, CMP #### [facility] [address] [address] [address] Tasha Dodson Chloride [Moles/Vol] 80 mmol/L Critically low 98-107 [facility] Comment on above: Performed By: #### C MADM, LIPA, BNP, CMP #### [facility] [address] [address] [address] Tasha Dodson CO2 [Moles/Vol] 27.1 mmol/L Normal 21.0-32.0 [facility] Comment on above: Performed By: #### C MADM, LIPA, BNP, CMP #### [facility] [address] [place] [address] Dr. Tasha Dodson Creatinine [Mass/Vol] 0.85 mg/dL Normal 0.55-1.02 [facility] Comment on above: Performed By: #### C MADM, LIPA, BNP, CMP #### [facility] [address] [place] [address] Dr. Tasha Dodson EGFR-AF BRAZILIAN >60 Normal >=60 [facility] Comment on above: Performed By: #### C MADM, LIPA, BNP, CMP #### [facility] [address] [place] [address] Dr. Tasha Dodson EGFR-NON AF BRAZILIAN >60 Normal >=60 [facility] Comment on above: Performed By: #### C MADM, LIPA, BNP, CMP #### [facility] [address] [place] [address] Dr. Tasha Dodson Globulin (S) [Mass/Vol] 3.9 g/dL Normal [facility] Comment on above: Performed By: #### C MADM, LIPA, BNP, CMP #### [facility] [address] [place] [address] Dr. Tasha Dodson Glucose [Mass/Vol] 132 mg/dL Critically high 74-106 [facility] Comment on above: Performed By: #### C MADM, LIPA, BNP, CMP #### [facility] [address] [address] [address] Tasha Dodson Potassium [Moles/Vol] 2.4 mmol/L Critically low 3.5-5.1 [facility] Comment on above: Performed By: #### C MADM, LIPA, BNP, CMP #### [facility] [address] [place] [address] Dr. Tasha Dodson Protein [Mass/Vol] 8.1 g/dL Normal 6.4-8.2 [facility] Comment on above: Performed By: #### C MADM, LIPA, BNP, CMP #### [facility] [address] [place] [address] Dr. Tasha Dodson Sodium [Moles/Vol] 116 mmol/L Critically low 136-145 [facility] Comment on above: Performed By: #### C MADM, LIPA, BNP, CMP #### [facility] [address] [place] [address] Dr. Tasha Dodson Urea nitrogen [Mass/Vol] 12.0 mg/dL Normal 7.0-18.0 [facility] Comment on above: Performed By: #### C MADM, LIPA, BNP, CMP #### [facility] [address] [place] [address] Dr. Tasha Dodson Urea nitrogen/Creatinine [Mass ratio] 14.1 mg/mg Normal [facility] Comment on above: Performed By: #### C MADM, LIPA, BNP, CMP #### [facility] [address] [place] [address] Dr. Tasha Dodson PROF CHEM 8 (BAS METB)on Anion gap [Moles/Vol] 11.4 mmol/L Normal [facility] Comment on above: Performed By: #### T SH, BMP #### [facility] [address] [place] [address] Dr. Tasha Dodson Calcium [Mass/Vol] 8.4 mg/dL Critically low 8.5-10.1 [facility] Comment on above: Performed By: #### T SH, BMP #### [facility] [address] [address] [address] Tasha Dodson Chloride [Moles/Vol] 89 mmol/L Critically low 98-107 [facility] Comment on above: Performed By: #### T SH, BMP #### [facility] [address] [address] [address] Tasha Dodsno CO2 [Moles/Vol] 25.5 mmol/L Normal 21.0-32.0 [facility] Comment on above: Performed By: #### T SH, BMP #### [facility] [address] [address] [address] Tasha Dodson Creatinine [Mass/Vol] 0.89 mg/dL Normal 0.55-1.02 [facility] Comment on above: Performed By: #### T SH, BMP #### [facility] [address] [address] [address] Tasha Dodson EGFR-AF BRAZILIAN >60 Normal >=60 [facility] Comment on above: Performed By: #### T SH, BMP #### [facility] [address] [address] [address] Tasha Dodson EGFR-NON AF BRAZILIAN 60 mL/min/1.73m2 Normal >=60 [facility] Comment on above: Performed By: #### T SH, BMP #### [facility] [address] [address] [address] Tasha Dodson Glucose [Mass/Vol] 166 mg/dL Critically high 74-106 [facility] Comment on above: Performed By: #### T SH, BMP #### [facility] [address] [address] [address] Tasha Dodson Potassium [Moles/Vol] 3.0 mmol/L Critically low 3.5-5.1 [facility] Comment on above: Performed By: #### T SH, BMP #### [facility] [address] [address] [address] Tasha Dodson Sodium [Moles/Vol] 123 mmol/L Critically low 136-145 [facility] Comment on above: Performed By: #### T JESI, BMP #### [facility] [address] [place] [address] Dr. Tasha Dodson Urea nitrogen [Mass/Vol] 9.0 mg/dL Normal 7.0-18.0 [facility] Comment on above: Performed By: #### T JESI, BMP #### [facility] [address] [place] [address] Dr. Tasha Dodson Urea nitrogen/Creatinine [Mass ratio] 10.1 mg/mg Normal [facility] Comment on above: Performed By: #### T JESI, BMP #### [facility] [address] [place] [address] Dr. Tasha Dodson PROTIMEon 12-26-2021 INR Coag (PPP) [Relative time] 0.96 {INR} Normal [facility] Comment on above: Performed By: #### T JESI, BMP #### [facility] [address] [place] [address] Dr. Tasha Dodson INR GUIDELINES SEE BELOW Normal [facility] Comment on above: Result Comment: JO RED INR: 2.0 - 3.0 CONDITIONS NOT LISTED BELOW 2.5 - 3.5 FOR PROSTHETIC HEART VALVE REPLACEMENT 2.5 - 3.5 RECURRENT THROMBOSIS Performed By: #### T JESI, BMP #### [facility] [address] [place] [address] Dr. Tasha Dodson PT Coag (PPP) [Time] 10.4 s Normal 9.0-11.6 [facility] Comment on above: Performed By: #### T JESI, BMP #### [facility] [address] [place] [address] Dr. Tasha Dodson PTTon 12-26-2021 aPTT Coag (Bld) [Time] 26.2 s Normal 22.3-36.2 [facility] Comment on above: Performed By: #### T JESI, BMP #### [facility] [address] [place] [address] Dr. Tasha Dodson SODIUM RANDOM URINEon 2021 Sodium (U) [Moles/Vol] 71 mmol/L Normal 30-90 [facility] Comment on above: Performed By: #### T SH, BMP #### [facility] [address] [place] [address] Dr. Tasha Dodson T4on 12-26-2021 T4 [Mass/Vol] 10.60 ug/dL Normal 4.80-13.90 [facility] Comment on above: Performed By: #### C BC #### [facility] [address] [place] [address] Dr. Tasha Dodson TSHon 12-26-2021 TSH 5.236 uIU/mL Critically high 0.358-3.740 [facility] Comment on above: Performed By: #### C BC #### [facility] [address] [place] [address] Dr. Tasha Dodson URINE MICROSCOPIC ONLYon BACTERIA TRACE Abnormal NONE SEEN [facility] Comment on above: Performed By: #### T SH, BMP #### [facility] [address] [place] [address] Dr. Tasha Dodson Bacteria identified Cx Nom (U) NOT INDICATED Normal [facility] Comment on above: Performed By: #### T SH, BMP #### [facility] [address] [place] [address] Dr. Tasha Dodson CAST NONE SEEN Normal NONE SEEN [facility] Comment on above: Performed By: #### T SH, BMP #### [facility] [address] [place] [address] Dr. Tasha Dodson Crystals LM Nom (Urine sed) NONE SEEN Normal NONE SEEN [facility] Comment on above: Performed By: #### T SH, BMP #### [facility] [address] [place] [address] Dr. Tasha Dodson Epithelial cells LM Ql (Urine sed) NONE SEEN Normal NONE SEEN /RARE [facility] Comment on above: Performed By: #### T SH, BMP #### [facility] [address] [place] [address] Dr. Tasha Dodson MUCOUS NONE SEEN Normal NONE SEEN [facility] Comment on above: Performed By: #### T SH, BMP #### [facility] [address] [address] [address] Tasha Dodson RBC 0-2 Normal 0-2 [facility] Comment on above: Performed By: #### T PAWAN DENNISON #### [facility] [address] [address] [address] Tasha Dodson WBC 0-2 Abnormal NONE SEEN [facility] Comment on above: Performed By: #### T PAWAN DENNISON #### [facility] [address] [address] [address] Tasha Dodson XR CHEST 1 Von [...] Date: 2021-12-26 11:32 Normal [facility] XR LSPINE MIN 4 VIEWSon 11-20 [...] by: JESUS BRUNO Date: 2021-11-30 22:52 Normal [facility] CBC AUTO DIFFon 11-09-2021 BASO # 0.1 103/ul Normal 0.0-0.1 [facility] Comment on above: Performed By: #### C MADM, LIPA, BNP, CMP #### [facility] [address] [place] [address] Dr. Tasha Dodson Basophils/100 WBC (Bld) 0.7 % Normal 0.2-2.0 [facility] Comment on above: Performed By: #### C MADM, LIPA, BNP, CMP #### [facility] [address] [place] [address] Dr. Tasha Dodson EO # 0.2 103/ul Normal 0.0-0.7 [facility] Comment on above: Performed By: #### C MADM, LIPA, BNP, CMP #### [facility] [address] [place] [address] Dr. Tasha Dodson Eosinophils/100 WBC (Bld) 1.8 % Normal 0.9-7.0 [facility] Comment on above: Performed By: #### C MADM, LIPA, BNP, CMP #### [facility] [address] [place] [address] Dr. Tasha Dodson Erythrocyte distribution width (RBC) [Ratio] 13.0 % Normal 11.0-15.0 [facility] Comment on above: Performed By: #### C MADM, LIPA, BNP, CMP #### [facility] [address] [place] [address] Dr. Tasha Dodson Hematocrit (Bld) [Volume fraction] 33.8 % Critically low 36.0-48.0 [facility] Comment on above: Performed By: #### C MADM, LIPA, BNP, CMP #### [facility] [address] [place] [address] Dr. Tasha Dodson Hemoglobin (Bld) [Mass/Vol] 12.5 g/dL Normal 12.0-16.0 [facility] Comment on above: Performed By: #### C MADM, LIPA, BNP, CMP #### [facility] [address] [place] [address] Dr. Tasha Dodson IG # 0.02 10e3/ul Normal 0.00-0.03 [facility] Comment on above: Performed By: #### C MADM, LIPA, BNP, CMP #### [facility] [address] [place] [address] Dr. Tasha Dodson IG % 0.2 % Normal 0.0-0.5 [facility] Comment on above: Performed By: #### C MADM, LIPA, BNP, CMP #### [facility] [address] [place] [address] Dr. Tasha Dodson LYMPH # 2.9 103/ul Normal 1.2-3.8 [facility] Comment on above: Performed By: #### C MADM, LIPA, BNP, CMP #### [facility] [address] [place] [address] Dr. Tasha Dodson Lymphocytes/100 WBC (Bld) 29.4 % Normal 20.5-60.0 [facility] Comment on above: Performed By: #### C MADM, LIPA, BNP, CMP #### [facility] [address] [place] [address] Dr. Tasha Dodson MANUAL DIFF REQ NO Normal [facility] Comment on above: Performed By: #### C MADM, LIPA, BNP, CMP #### [facility] [address] [place] [address] Dr. Tasha Dodson MCH (RBC) [Entitic mass] 34.1 pg Critically high 26.7-34.0 [facility] Comment on above: Performed By: #### C MADM, LIPA, BNP, CMP #### [facility] [address] [place] [address] Dr. Tasha Dodson MCHC (RBC) [Mass/Vol] 37.0 g/dL Critically high 29.9-35.2 [facility] Comment on above: Performed By: #### C MADM, LIPA, BNP, CMP #### [facility] [address] [place] [address] Dr. Tasha Dodson MCV (RBC) [Entitic vol] 92.1 fL Normal 81.0-99.0 [facility] Comment on above: Performed By: #### C MADM, LIPA, BNP, CMP #### [facility] [address] [place] [address] Dr. Tasha Dodson MONO # 0.8 103/ul Normal 0.3-0.8 [facility] Comment on above: Performed By: #### C MADM, LIPA, BNP, CMP #### [facility] [address] [place] [address] Dr. Tasha Dodson Monocytes/100 WBC (Bld) 8.2 % Normal 1.7-12.0 [facility] Comment on above: Performed By: #### C MADM, LIPA, BNP, CMP #### [facility] [address] [place] [address] Dr. Tasha Dodson NEUT # 5.9 103/ul Normal 1.4-6.5 [facility] Comment on above: Performed By: #### C MADM, LIPA, BNP, CMP #### [facility] [address] [place] [address] Dr. Tasha Dodson Neutrophils/100 WBC (Bld) 59.7 % Normal 43.0-75.0 [facility] Comment on above: Performed By: #### C MADM, LIPA, BNP, CMP #### [facility] [address] [place] [address] Dr. Tasha Dodson Platelet mean volume (Bld) [Entitic vol] 8.9 fL Critically low 9.5-13.5 [facility] Comment on above: Performed By: #### C MADM, LIPA, BNP, CMP #### [facility] [address] [place] [address] Dr. Tasha Dodson PLT 370 103/ul Normal 150-450 [facility] Comment on above: Performed By: #### C MADM, LIPA, BNP, CMP #### [facility] [address] [place] [address] Dr. Tasha Dodson RBC 3.67 106/ul Critically low 4.20-5.40 [facility] Comment on above: Performed By: #### C MADM, LIPA, BNP, CMP #### [facility] [address] [place] [address] Dr. Tasha Dodson WBC 9.9 103/ul Normal 4.0-11.0 [facility] Comment on above: Performed By: #### C MADM, LIPA, BNP, CMP #### [facility] [address] [place] [address] Dr. Tasha Dodson FREE T4on 11-09-2021 Free T4 [Mass/Vol] 1.48 ng/dL Critically high 0.76-1.46 [facility] Comment on above: Performed By: #### F T4 #### [facility] [address] [place] [address] Dr. Tasha Dodson PROF CHEM 8 (BAS METB)on Anion gap [Moles/Vol] 11.1 mmol/L Normal [facility] Comment on above: Performed By: #### T SH, BMP #### [facility] [address] [place] [address] Dr. Tasha Dodson Calcium [Mass/Vol] 9.3 mg/dL Normal 8.5-10.1 [facility] Comment on above: Performed By: #### T SH, BMP #### [facility] [address] [place] [address] Dr. Tasha Dodson Chloride [Moles/Vol] 92 mmol/L Critically low 98-107 [facility] Comment on above: Performed By: #### T SH, BMP #### [facility] [address] [place] [address] Dr. Tasha Dodson CO2 [Moles/Vol] 29.2 mmol/L Normal 21.0-32.0 [facility] Comment on above: Performed By: #### T SH, BMP #### [facility] [address] [place] [address] Dr. Tasha Dodson Creatinine [Mass/Vol] 0.68 mg/dL Normal 0.55-1.02 [facility] Comment on above: Performed By: #### T SH, BMP #### [facility] [address] [place] [address] Dr. Tasha Dodson EGFR-AF BRAZILIAN >60 Normal >=60 [facility] Comment on above: Performed By: #### T SH, BMP #### [facility] [address] [address] [address] Tasha Dodson EGFR-NON AF BRAZILIAN >60 Normal >=60 [facility] Comment on above: Performed By: #### T SH, BMP #### [facility] [address] [address] [address] Tasha Dodson Glucose [Mass/Vol] 109 mg/dL Critically high 74-106 [facility] Comment on above: Performed By: #### T SH, BMP #### [facility] [address] [address] [address] Tasha Dodson Potassium [Moles/Vol] 3.3 mmol/L Critically low 3.5-5.1 [facility] Comment on above: Performed By: #### T SH, BMP #### [facility] [address] [place] [address] Dr. Tasha Dodson Sodium [Moles/Vol] 129 mmol/L Critically low 136-145 [facility] Comment on above: Performed By: #### T SH, BMP #### [facility] [address] [address] [address] Tasha Dodson Urea nitrogen [Mass/Vol] 9.0 mg/dL Normal 7.0-18.0 [facility] Comment on above: Performed By: #### T SH, BMP #### [facility] [address] [place] [address] Dr. Tasha Dodson Urea nitrogen/Creatinine [Mass ratio] 13.2 mg/mg Normal [facility] Comment on above: Performed By: #### T SH, BMP #### [facility] [address] [address] [address] Tasha Dodson TSHon 11-09-2021 TSH 1.193 uIU/mL Normal 0.358-3.740 [facility] Comment on above: Performed By: #### T SH, BMP #### [facility] [address] [place] [address] Dr. Tasha Dodson LIPID PROFILEon 08-06-2021 CHOL-HDL RATIO NORM SEE BELOW Normal [facility] Comment on above: Result Comment: 3.3 - 4.4 LOW RISK 4.4 - 7.1 AVERAGE RISK 7.1 - 11.0 MODERATE RISK >11.0 HIGH RISK Performed By: #### C MADM, LIPA, BNP, CMP #### [facility] [address] [address] [address] Tasha Dodson Cholesterol [Mass/Vol] 198 mg/dL Normal <=200 [facility] Comment on above: Performed By: #### C MADM, LIPA, BNP, CMP #### [facility] [address] [address] [address] Tasha Dodson Cholesterol in HDL [Mass/Vol] 77 mg/dL Critically high 40-60 [facility] Comment on above: Performed By: #### C MADM, LIPA, BNP, CMP #### [facility] [address] [address] [address] Tasha Dodson Cholesterol in LDL [Mass/Vol] 106.0 mg/dL Normal [facility] Comment on above: Performed By: #### C MADM, LIPA, BNP, CMP #### [facility] [address] [address] [address] Tasha Dodson Cholesterol.total/Shahana sterol in HDL [Mass ratio] 2.6 {ratio} Normal [facility] Comment on above: Performed By: #### C MADM, LIPA, BNP, CMP #### [facility] [address] [address] [address] Tasha Dodson HDL NORMAL > or = 60 mg/dl - LO W CARDIOVASCULAR RISK <40 mg/dl - HIGH CARDIOVASCULAR RISK Normal [facility] Comment on above: Performed By: #### C MADM, LIPA, BNP, CMP #### [facility] [address] [address] [address] Tasha Dodson LDL CALC NORMAL SEE BELOW Normal [facility] Comment on above: Result Comment: <100 mg/dl OPTIMAL 100 - 129 mg/dl NEAR OR ABOVE OPTIMAL 130 - 159 mg/dl BORDERLINE HIGH 160 - 189 mg/dl HIGH >190 mg/dl VERY HIGH Performed By: #### C MADM, LIPA, BNP, CMP #### [facility] [address] [address] [address] Tasha Dodson Triglyceride [Mass/Vol] 75 mg/dL Normal <=150 [facility] Comment on above: Performed By: #### C MADM, LIPA, BNP, CMP #### [facility] [address] [address] [address] Tasha Dodson VLDL CALC 15.0 mg/dL Normal [facility] Comment on above: Performed By: #### C MADM, LIPA, BNP, CMP #### [facility] [address] [address] [address] Tasha Dodson LIVER PROFILEon 08-06-2021 Albumin [Mass/Vol] 3.7 g/dL Normal 3.4-5.0 [facility] Comment on above: Performed By: #### C MADM, LIPA, BNP, CMP #### [facility] [address] [address] [address] Tasha Dodson Albumin/Globulin [Mass ratio] 1.0 {ratio} Normal [facility] Comment on above: Performed By: #### C MADM, LIPA, BNP, CMP #### [facility] [address] [address] [address] Tasha Dodson ALP [Catalytic activity/Vol] 62 U/L Normal 46-116 [facility] Comment on above: Performed By: #### C MADM, LIPA, BNP, CMP #### [facility] [address] [address] [address] Tasha Dodson ALT [Catalytic activity/Vol] 26 U/L Normal 14-59 [facility] Comment on above: Performed By: #### C MADM, LIPA, BNP, CMP #### [facility] [address] [address] [address] Tasha Dodson AST [Catalytic activity/Vol] 24 U/L Normal 15-37 [facility] Comment on above: Performed By: #### C MADM, LIPA, BNP, CMP #### [facility] [address] [address] [address] Tasha Dodson BILI, CONJUGATED 0.1 mg/dL Normal 0.0-0.2 [facility] Comment on above: Performed By: #### C MADM, LIPA, BNP, CMP #### [facility] [address] [place] [address] Dr. Tasha Dodson Bilirubin [Mass/Vol] 0.5 mg/dL Normal 0.2-1.0 [facility] Comment on above: Performed By: #### C MADM, LIPA, BNP, CMP #### [facility] [address] [place] [address] Dr. Tasha Dodson Globulin (S) [Mass/Vol] 3.8 g/dL Normal [facility] Comment on above: Performed By: #### C MADM, LIPA, BNP, CMP #### [facility] [address] [place] [address] Dr. Tasha Dodson Protein [Mass/Vol] 7.5 g/dL Normal 6.4-8.2 [facility] Comment on above: Performed By: #### C MADM, LIPA, BNP, CMP #### [facility] [address] [place] [address] Dr. Tasha Dodson FREE T4on 07-28-2021 Free T4 [Mass/Vol] 1.32 ng/dL Normal 0.76-1.46 [facility] Comment on above: Performed By: #### T SH, BMP #### [facility] [address] [place] [address] Dr. Tasha oDdson PROF CHEM 8 (BAS METB)on Anion gap [Moles/Vol] 11.6 mmol/L Normal [facility] Comment on above: Performed By: #### B MP, TSH #### [facility] [address] [place] [address] Dr. Tasha Dodson Calcium [Mass/Vol] 9.4 mg/dL Normal 8.5-10.1 [facility] Comment on above: Performed By: #### B MP, TSH #### [facility] [address] [place] [address] Dr. Tasha Dodson Chloride [Moles/Vol] 93 mmol/L Critically low 98-107 [facility] Comment on above: Performed By: #### B MP, TSH #### [facility] [address] [address] [address] Tasha Dodson CO2 [Moles/Vol] 29.8 mmol/L Normal 21.0-32.0 [facility] Comment on above: Performed By: #### B MP, TSH #### [facility] [address] [address] [address] Tasha Dodson Creatinine [Mass/Vol] 0.74 mg/dL Normal 0.55-1.02 [facility] Comment on above: Performed By: #### B MP, TSH #### [facility] [address] [place] [address] Dr. Tasha Dodson EGFR-AF BRAZILIAN >60 Normal >=60 [facility] Comment on above: Performed By: #### B MP, TSH #### [facility] [address] [place] [address] Dr. Tasha Dodson EGFR-NON AF BRAZILIAN >60 Normal >=60 [facility] Comment on above: Performed By: #### B MP, TSH #### [facility] [address] [address] [address] Tasha Dodson Glucose [Mass/Vol] 114 mg/dL Critically high 74-106 [facility] Comment on above: Performed By: #### B MP, TSH #### [facility] [address] [address] [address] Tasha Dodson Potassium [Moles/Vol] 3.4 mmol/L Critically low 3.5-5.1 [facility] Comment on above: Performed By: #### B MP, TSH #### [facility] [address] [address] [address] Tasha Dodson Sodium [Moles/Vol] 131 mmol/L Critically low 136-145 [facility] Comment on above: Performed By: #### B MP, TSH #### [facility] [address] [address] [address] Tasha Dodson Urea nitrogen [Mass/Vol] 12.0 mg/dL Normal 7.0-18.0 [facility] Comment on above: Performed By: #### B MP, TSH #### [facility] [address] [address] [address] Tasha Dodson Urea nitrogen/Creatinine [Mass ratio] 16.2 mg/mg Normal [facility] Comment on above: Performed By: #### B MP, TSH #### [facility] [address] [address] [address] Tasha Dodson TSHon 07-28-2021 TSH 1.790 uIU/mL Normal 0.358-3.740 [facility] Comment on above: Performed By: #### B MP, TSH #### [facility] [address] [place] [address] Dr. Tasha Dodson TSH RANGE SEE BELOW Normal [facility] Comment on above: Result Comment: <0.3 4 UIU/ml HYPERTHYROID 0.34-5.60 UIU/ml EUTHYROID >5.60 UIU/ml HYPOTHYROID Performed By: #### B MP, TSH #### [facility] [address] [address] [address] Tasha Dodson CBC Auto Differentialon 10-0 Basophils (Bld) [#/Vol] 0.1 10*3/uL 0 - 0.2 K/uL [place] Basophils/100 WBC (Bld) 1.1 % [place] Eosinophils (Bld) [#/Vol] 0.2 10*3/uL 0 - 0.7 K/uL [place] Eosinophils/100 WBC (Bld) 1.4 % [place] Erythrocyte distribution width (RBC) [Ratio] 14.4 % 11.5 - 14.5 % [place] Hematocrit (Bld) [Volume fraction] 33.6 % Low 37 - 47 % [place] Hemoglobin (Bld) [Mass/Vol] 11.1 g/dL Low 12 - 16 g/dL [place] Interpretation and review of laboratory results Abnormal [place] Lymphocytes (Bld) [#/Vol] 2.3 10*3/uL 1 - 4.8 K/uL [place] Lymphocytes/100 WBC (Bld) 18.0 % [place] MCH (RBC) [Entitic mass] 29.5 pg 27 - 31.3 pg [place] MCHC (RBC) [Mass/Vol] 33.0 % 33 - 37 % [place] MCV (RBC) [Entitic vol] 89.5 fL 82 - 100 fL [place] Monocytes (Bld) [#/Vol] 0.9 10*3/uL High 0.2 - 0.8 K/uL [place] Monocytes/100 WBC (Bld) 6.9 % [place] Neutrophils Absolute 9.1 K/uL High 1.4 - 6 .5 K/uL [place] Neutrophils/100 WBC (Bld) 72.6 % [place] Platelets (Bld) [#/Vol] 548 10*3/uL High 130 - 400 K/uL [place] RBC (Bld) [#/Vol] 3.75 10*6/uL Low [place] WBC (Bld) [#/Vol] 12.5 10*3/uL High 4.8 - 10.8 K/uL [place] CBC With Platelet and Differ entialon 11-20-2018 Basophils (Bld) [#/Vol] 0.1 10*3/uL Normal 0.0-0.2 [facility] Comment on above: Performed By: #### E SR #### [facility] [address] [facility] [address] Basophils/100 WBC (Bld) 1.1 % Normal [facility] Comment on above: Performed By: #### E SR #### [facility] [address] [facility] [address] Eosinophils (Bld) [#/Vol] 0.2 10*3/uL Normal 0.0-0.7 [facility] Comment on above: Performed By: #### E SR #### [facility] [address] [place] [address] Eosinophils/100 WBC (Bld) 1.4 % Normal [facility] Comment on above: Performed By: #### E SR #### [facility] [address] [place] [address] Erythrocyte distribution width (RBC) [Ratio] 14.4 % Normal 11.5-14.5 [facility] Comment on above: Performed By: #### E SR #### [facility] [address] [place] [address] Hematocrit (Bld) [Volume fraction] 33.6 % Low 37.0-47.0 [facility] Comment on above: Performed By: #### E SR #### [facility] [address] [place] [address] Hemoglobin (Bld) [Mass/Vol] 11.1 g/dL Low 12.0-16.0 [facility] Comment on above: Performed By: #### E SR #### [facility] [address] [place] [address] Lymphocytes (Bld) [#/Vol] 2.3 10*3/uL Normal 1.0-4.8 [facility] Comment on above: Performed By: #### E SR #### [facility] [address] [place] [address] Lymphocytes/100 WBC (Bld) 18.0 % Normal [facility] Comment on above: Performed By: #### E SR #### [facility] [address] [place] [address] MCH (RBC) [Entitic mass] 29.5 pg Normal 27.0-31.3 [facility] Comment on above: Performed By: #### E SR #### [facility] [address] [place] [address] MCHC (RBC) [Mass/Vol] 33.0 % Normal 33.0-37.0 [facility] Comment on above: Performed By: #### E SR #### [facility] [address] [place] [address] MCV (RBC) [Entitic vol] 89.5 fL Normal 82.0-100.0 [facility] Comment on above: Performed By: #### E SR #### [facility] [address] [place] [address] Monocytes (Bld) [#/Vol] 0.9 10*3/uL Critically high 0.2-0. 8 [facility] Comment on above: Performed By: #### E SR #### [facility] [address] [place] [address] Monocytes/100 WBC (Bld) 6.9 % Normal [facility] Comment on above: Performed By: #### E SR #### [facility] [address] [place] [address] Neutrophils (Bld) [#/Vol] 9.1 10*3/uL Critically high 1.4-6.5 [facility] Comment on above: Performed By: #### E SR #### [facility] [address] [place] [address] Neutrophils/100 WBC (Bld) 72.6 % Normal [facility] Comment on above: Performed By: #### E SR #### [facility] [address] [place] [address] Platelets (Bld) [#/Vol] 548 10*3/uL Critically high 130-40 0 [facility] Comment on above: Performed By: #### E SR #### [facility] [address] [place] [address] RBC (Bld) [#/Vol] 3.75 10*6/uL Low 4.20-5.40 [facility] Comment on above: Performed By: #### E SR #### [facility] [address] [place] [address] WBC (Bld) [#/Vol] 12.5 10*3/uL Critically high 4.8-10.8 [facility] Comment on above: Performed By: #### E SR #### [facility] [address] [place] [address] EKG 12 Leadon 11-20-2018 Atrial Rate 79 BPM [place] P [place] 58 degrees [place] P-R Interval 176 ms [place] Q-T Interval 404 ms [facility] QRS Duration 130 ms [place] QTc Calculation (Bazett) 463 ms [place] R [place] -11 degrees [facility] [place] T [place] 5 degrees [place] Urea nitrogen [Mass/Vol] Normal sinus rhythm Right bundle branch block Moderate voltage criteria for LVH, may be normal variant Abnormal ECG When compared with ECG of 13-NOV-2018 08:33, No significant change was found Confirmed by Анна Zamarripa ([id number]) on 11/20/2018 9:39:56 AM [place] Ventricular Rate 79 BPM [place] Joseph, [facility]po Incoming Results From [place] - 11/20/2018 9:40 AM EDT Normal sinus rhythm Right bundle branch block Moderate voltage criteria for LVH, may be normal variant Abnormal ECG When compared with ECG of 13-NOV-2018 08:33, No significant change was found Confirmed by Анна Zamarripa ([id number]) on 11/20/2018 9:39:56 AM [place] CBC Auto Differentialon 10-23 Neutrophils Absolute 6.1 K/uL 1.4 - 6 .5 K/uL [place] CBC With Platelet and Differ entialon 11-19-2018 Basophils (Bld) [#/Vol] 0.2 10*3/uL Normal 0.0-0.2 [place] Comment on above: Performed By: #### C MP #### [facility] [address] [place] [address] Basophils/100 WBC (Bld) 1.5 % Normal [place] Comment on above: Performed By: #### C MP #### [facility] [address] [place] [address] Eosinophils (Bld) [#/Vol] 0.3 10*3/uL Normal 0.0-0.7 [place] Comment on above: Performed By: #### C MP #### [facility] [address] [place] [address] Eosinophils/100 WBC (Bld) 2.5 % Normal [place] Comment on above: Performed By: #### C MP #### [facility] [address] [place] [address] Erythrocyte distribution width (RBC) [Ratio] 14.1 % Normal 11.5-14.5 [place] Comment on above: Performed By: #### C MP #### [facility] [address] [place] [address] Hematocrit (Bld) [Volume fraction] 29.3 % Low 37.0-47.0 [place] Comment on above: Performed By: #### C MP #### [facility] [address] [address] Hemoglobin (Bld) [Mass/Vol] 10.1 g/dL Low 12.0-16.0 [place] Comment on above: Performed By: #### C MP #### [facility] [address] [address] Lymphocytes (Bld) [#/Vol] 2.8 10*3/uL Normal 1.0-4.8 [place] Comment on above: Performed By: #### C MP #### [facility] [address] [address] Lymphocytes/100 WBC (Bld) 27.3 % Normal [place] Comment on above: Performed By: #### C MP #### [facility] [address] [place] [address] MCH (RBC) [Entitic mass] 30.7 pg Normal 27.0-31.3 [place] Comment on above: Performed By: #### C MP #### [facility] [address] [place] [address] MCHC (RBC) [Mass/Vol] 34.6 % Normal 33.0-37.0 [place] Comment on above: Performed By: #### C MP #### [facility] [address] [place] [address] MCV (RBC) [Entitic vol] 88.9 fL Normal 82.0-100.0 [place] Comment on above: Performed By: #### C MP #### [facility] [address] [facility] [address] Monocytes (Bld) [#/Vol] 0.9 10*3/uL Critically high 0.2-0. 8 [place] Comment on above: Performed By: #### C MP #### [facility] [address] [place] [address] Monocytes/100 WBC (Bld) 9.2 % Normal [place] Comment on above: Performed By: #### C MP #### [facility] [address] [facility] [facility] [address] Neutrophils (Bld) [#/Vol] 6.1 10*3/uL Normal 1.4-6.5 [facility] Comment on above: Performed By: #### C MP #### [facility] [address] [facility] [place] [address] Neutrophils/100 WBC (Bld) 59.5 % Normal [place] Comment on above: Performed By: #### C MP #### [facility] [address] [facility] [facility] [address] Platelets (Bld) [#/Vol] 396 10*3/uL Normal 130-400 [place] Comment on above: Performed By: #### C MP #### [facility] [address] [facility] [place] [address] RBC (Bld) [#/Vol] 3.30 10*6/uL Low 4.20-5.40 [place] Comment on above: Performed By: #### C MP #### [facility] [address] [place] [address] WBC (Bld) [#/Vol] 10.2 10*3/uL Normal 4.8-10.8 [place] Comment on above: Performed By: #### C MP #### [facility] [address] [place] [address] High Sensitivity CRPon 11-19 High Sensitivity CRP 89.2 mg/L Critically high 0.0-5.0 [facility] Comment on above: Performed By: #### E SR #### [facility] [address] [place] [address] High sensitivity CRPon 11-19 CRP High Sensitivity 89.2 mg/L High 0 - 5 mg/L [place] Interpretation and review of laboratory results Abnormal [place] Otheron 11-19-2018 Interpretation and review of laboratory results Abnormal [place] Sedimentation Rateon 019 Sedimentation Rate 55 mm Critically high 0-30 M [facility] Comment on above: Performed By: #### C MP #### [facility] [address] [place] [address] Sed Rate 55 mm High 0 - 30 mm [place] Basic Metabolic Panelon 10-22 Anion gap [Moles/Vol] 14 mmol/L Normal 9-15 [facility] Comment on above: Performed By: #### C MP #### [facility] [address] [place] [address] Calcium [Mass/Vol] 8.8 mg/dL Normal 8.5-9.9 [facility] Comment on above: Performed By: #### C MP #### [facility] [address] [place] [address] Chloride [Moles/Vol] 95 mmol/L Normal 95-107 [facility] Comment on above: Performed By: #### C MP #### [facility] [address] [place] [address] CO2 [Moles/Vol] 26 mmol/L Normal 20-31 [facility] Comment on above: Performed By: #### C MP #### [facility] [address] [place] [address] Creatinine [Mass/Vol] 0.58 mg/dL Normal 0.50-0.90 [facility] Comment on above: Performed By: #### C MP #### [facility] [address] [place] [address] GFR/1.73 sq M predicted among blacks MDRD (S/P/Bld) [Vol rate/Area] mL/min/{1.73_m2} Normal >60 [facility] Comment on above: Result Comment: >60 mL/min/1.73m2 EGFR, calc. for ages 18 and older using the MDRD formula (not corrected for weight), is valid for stable renal function. Performed By: #### C MP #### [facility] [address] [place] [address] GFR/1.73 sq M.predicted MDRD (S/P/Bld) [Vol rate/Area] mL/min/{1.73_m2} Normal >60 [facility] Comment on above: Result Comment: >60 mL/min/1.73m2 EGFR, calc. for ages 18 and older using the MDRD formula (not corrected for weight), is valid for stable renal function. Performed By: #### C MP #### [facility] [address] [place] [address] Glucose [Mass/Vol] 156 mg/dL Critically high 70-99 M [facility] Comment on above: Performed By: #### C MP #### [facility] [address] [place] [address] Potassium [Moles/Vol] 3.3 mmol/L Low 3.4-4.9 [facility] Comment on above: Performed By: #### C MP #### [facility] [address] [place] [address] Sodium [Moles/Vol] 135 mmol/L Normal 135-144 [facility] Comment on above: Performed By: #### C MP #### [facility] [address] [place] [address] Urea nitrogen [Mass/Vol] 11 mg/dL Normal 8-23 [facility] Comment on above: Performed By: #### C MP #### [facility] [address] [place] [address] Anion gap [Moles/Vol] 14 mmol/L [place] Calcium [Mass/Vol] 8.8 mg/dL 8.5 - 9.9 mg/dL [place] Chloride [Moles/Vol] 95 mmol/L [place] CO2 [Moles/Vol] 26 mmol/L [place] Creatinine [Mass/Vol] 0.58 mg/dL 0.5 - 0.9 mg/dL [place] GFR >60.0 >60 [place] Comment on above: >60 mL/min/1.73m2 EG FR, calc. for ages 18 and older using the MDRD formula (not corrected for weight), is valid for stable renal function. GFR Non- >60.0 >60 [place] Comment on above: >60 mL/min/1.73m2 EG FR, calc. for ages 18 and older using the MDRD formula (not corrected for weight), is valid for stable renal function. Glucose [Mass/Vol] 156 mg/dL High 70 - 99 mg/dL [place] Interpretation and review of laboratory results Abnormal [place] Potassium [Moles/Vol] 3.3 mmol/L [place] Sodium [Moles/Vol] 135 mmol/L [place] Urea nitrogen [Mass/Vol] 11 mg/dL 8 - 23 mg/dL [place] Magnesiumon 11-18-2018 Magnesium [Mass/Vol] 1.8 mg/dL Normal 1.7-2.4 [facility] Comment on above: Performed By: #### C MP #### [facility] [address] [place] [address] Magnesium [Mass/Vol] 1.8 mg/dL 1.7 - 2 .4 mg/dL [place] TSH w/out Reflexon 9 TSH Qn 0.880 uIU/mL Normal 0.440-3.86 [facility] Comment on above: Performed By: #### C MP #### [facility] [address] [place] [address] TSH without Reflexon 019 TSH Qn 0.880 m[IU]/L [place] CBC Auto Differentialon 10-22 Basophils (Bld) [#/Vol] 0.1 10*3/uL 0 - 0.2 K/uL [place] Basophils/100 WBC (Bld) 0.7 % [place] Eosinophils (Bld) [#/Vol] 0.4 10*3/uL 0 - 0.7 K/uL [place] Eosinophils/100 WBC (Bld) 2.8 % [place] Erythrocyte distribution width (RBC) [Ratio] 14.2 % 11.5 - 14.5 % [place] Hematocrit (Bld) [Volume fraction] 32.3 % Low 37 - 47 % [place] Hemoglobin (Bld) [Mass/Vol] 10.8 g/dL Low 12 - 16 g/dL [place] Interpretation and review of laboratory results Abnormal [place] Lymphocytes (Bld) [#/Vol] 2.6 10*3/uL 1 - 4.8 K/uL [place] Lymphocytes/100 WBC (Bld) 16.8 % [place] MCH (RBC) [Entitic mass] 30.3 pg 27 - 31.3 pg [place] MCHC (RBC) [Mass/Vol] 33.4 % 33 - 37 % [place] MCV (RBC) [Entitic vol] 90.5 fL 82 - 100 fL [place] Monocytes (Bld) [#/Vol] 1.3 10*3/uL High 0.2 - 0.8 K/uL [place] Monocytes/100 WBC (Bld) 8.3 % [place] Neutrophils Absolute 11.1 K/uL High 1.4 - 6 .5 K/uL [place] Neutrophils/100 WBC (Bld) 71.4 % [place] Platelets (Bld) [#/Vol] 375 10*3/uL 130 - 400 K/uL [place] RBC (Bld) [#/Vol] 3.57 10*6/uL Low [place] WBC (Bld) [#/Vol] 15.5 10*3/uL High 4.8 - 10.8 K/uL [place] CBC With Platelet and Differ entialon 11-17-2018 Basophils (Bld) [#/Vol] 0.1 10*3/uL Normal 0.0-0.2 [facility] Comment on above: Performed By: #### C MP #### [facility] [address] [place] [address] Basophils/100 WBC (Bld) 0.7 % Normal [facility] Comment on above: Performed By: #### C MP #### [facility] [address] [place] [address] Eosinophils (Bld) [#/Vol] 0.4 10*3/uL Normal 0.0-0.7 [facility] Comment on above: Performed By: #### C MP #### [facility] [address] [place] [address] Eosinophils/100 WBC (Bld) 2.8 % Normal [facility] Comment on above: Performed By: #### C MP #### [facility] [address] [place] [address] Erythrocyte distribution width (RBC) [Ratio] 14.2 % Normal 11.5-14.5 [facility] Comment on above: Performed By: #### C MP #### [facility] [address] [place] [address] Hematocrit (Bld) [Volume fraction] 32.3 % Low 37.0-47.0 [facility] Comment on above: Performed By: #### C MP #### [facility] [address] [place] [address] Hemoglobin (Bld) [Mass/Vol] 10.8 g/dL Low 12.0-16.0 [facility] Comment on above: Performed By: #### C MP #### [facility] [address] [place] [address] Lymphocytes (Bld) [#/Vol] 2.6 10*3/uL Normal 1.0-4.8 [facility] Comment on above: Performed By: #### C MP #### [facility] [address] [place] [address] Lymphocytes/100 WBC (Bld) 16.8 % Normal [facility] Comment on above: Performed By: #### C MP #### [facility] [address] [place] [place] [address] MCH (RBC) [Entitic mass] 30.3 pg Normal 27.0-31.3 [facility] Comment on above: Performed By: #### C MP #### [facility] [address] [place] [place] [address] MCHC (RBC) [Mass/Vol] 33.4 % Normal 33.0-37.0 [facility] Comment on above: Performed By: #### C MP #### [facility] [address] [place] [address] MCV (RBC) [Entitic vol] 90.5 fL Normal 82.0-100.0 M [facility] Comment on above: Performed By: #### C MP #### [facility] [address] [place] [address] Monocytes (Bld) [#/Vol] 1.3 10*3/uL Critically high 0.2-0. 8 [facility] Comment on above: Performed By: #### C MP #### [facility] [address] [place] [address] Monocytes/100 WBC (Bld) 8.3 % Normal M [facility] Comment on above: Performed By: #### C MP #### [facility] [address] [place] [address] Neutrophils (Bld) [#/Vol] 11.1 10*3/uL Critically high 1.4-6.5 [facility] Comment on above: Performed By: #### C MP #### [facility] [address] [place] [address] Neutrophils/100 WBC (Bld) 71.4 % Normal [facility] Comment on above: Performed By: #### C MP #### [facility] [address] [place] [address] Platelets (Bld) [#/Vol] 375 10*3/uL Normal 130-400 [facility] Comment on above: Performed By: #### C MP #### [facility] [address] [place] [address] RBC (Bld) [#/Vol] 3.57 10*6/uL Low 4.20-5.40 [facility] Comment on above: Performed By: #### C MP #### [facility] [address] [place] [address] WBC (Bld) [#/Vol] 15.5 10*3/uL Critically high 4.8-10.8 [facility] Comment on above: Performed By: #### C MP #### [facility] [address] [place] [address] High Sensitivity CRPon 11-17 High Sensitivity CRP 230.1 mg/L Critically high 0.0-5.0 [facility] Comment on above: Performed By: #### C MP #### [facility] [address] [place] [address] High sensitivity CRPon 11-17 CRP High Sensitivity 230.1 mg/L High 0 - 5 mg/L [place] Interpretation and review of laboratory results Abnormal [place] Sedimentation Rateon 2 019 Sedimentation Rate 50 mm Critically high 0-30 M [facility] Comment on above: Performed By: #### C MP #### [facility] [address] [place] [address] Interpretation and review of laboratory results Abnormal [place] Sed Rate 50 mm High 0 - 30 mm [place] DUP LOWER EXTREMITIES VAUGHN ATERAL VENOUSon 11-17-2018 NO DVT IDENTIFIED IN EITHER LOWER EXTREMITY. [place] Joseph, Chpo Incoming Radiant Results From [employer] - 11/17/2018 8:05 AM EDT US DUP [...] NO DVT IDENTIFIED IN EITHER LOWER EXTREMITY. [place] DUP LOWER EXTREMITIES BILATERAL VENOUS : 11/16/2018 CLINICAL HISTORY: LEG SWELLING, PAIN, DVT SUSPECTED . COMPARISON: None available. Grayscale, compression, color and waveform Doppler analysis of both lower extremity deep venous systems was performed with augmentation. FINDINGS: There is no deep venous thrombosis, abnormal masses, fluid collections or other findings of concern identified within either lower extremity. [place] Urine Cultureon 11-17-2018 Bacteria identified Cx Nom (U) No growth 24 hours [place] ORDERED BY: ADDY COKER SOURCE: Urine Clean Catch COLLECTED: 11/15/18 19:05 ANTIBIOTICS AT DI.: RECEIVED : 11/15/18 19:05 [place] CBC With Platelet and Differ entialon 11-16-2018 Neutrophils (Bld) [#/Vol] 15.5 10*3/uL Critically high 1.4-6.5 [facility] Comment on above: Performed By: #### P TT #### [facility] [address] [place] [address] Basophils (Bld) [#/Vol] 0.2 10*3/uL Normal 0.0-0.2 [place] Comment on above: Performed By: #### P TT #### [facility] [address] [place] [address] Basophils/100 WBC (Bld) 0.9 % Normal [place] Comment on above: Performed By: #### P TT #### [facility] [address] [place] [address] Eosinophils (Bld) [#/Vol] 0.1 10*3/uL Normal 0.0-0.7 [place] Comment on above: Performed By: #### P TT #### [facility] [address] [place] [address] Eosinophils/100 WBC (Bld) 0.8 % Normal [place] Comment on above: Performed By: #### P TT #### [facility] [address] [place] [address] Erythrocyte distribution width (RBC) [Ratio] 14.4 % Normal 11.5-14.5 [place] Comment on above: Performed By: #### P TT #### [facility] [address] [place] [address] Hematocrit (Bld) [Volume fraction] 33.4 % Low 37.0-47.0 [place] Comment on above: Performed By: #### P TT #### [facility] [address] [place] [address] Hemoglobin (Bld) [Mass/Vol] 11.0 g/dL Low 12.0-16.0 [place] Comment on above: Performed By: #### P TT #### [facility] [address] [place] [address] Lymphocytes (Bld) [#/Vol] 1.5 10*3/uL Normal 1.0-4.8 [place] Comment on above: Performed By: #### P TT #### [facility] [address] [place] [address] Lymphocytes/100 WBC (Bld) 7.9 % Normal [place] Comment on above: Performed By: #### P TT #### [facility] [address] [address] MCH (RBC) [Entitic mass] 29.4 pg Normal 27.0-31.3 [place] Comment on above: Performed By: #### P TT #### [facility] [address] [place] [address] MCHC (RBC) [Mass/Vol] 32.9 % Low 33.0-37.0 [place] Comment on above: Performed By: #### P TT #### [facility] [address] [place] [address] MCV (RBC) [Entitic vol] 89.4 fL Normal 82.0-100.0 [place] Comment on above: Performed By: #### P TT #### [facility] [address] [place] [address] Monocytes (Bld) [#/Vol] 1.3 10*3/uL Critically high 0.2-0. 8 [place] Comment on above: Performed By: #### P TT #### [facility] [address] [place] [address] Monocytes/100 WBC (Bld) 7.1 % Normal [place] Comment on above: Performed By: #### P TT #### [facility] [address] [address] Neutrophils/100 WBC (Bld) 83.3 % Normal [place] Comment on above: Performed By: #### P TT #### [facility] [address] [place] [address] Platelets (Bld) [#/Vol] 304 10*3/uL Normal 130-400 [place] Comment on above: Performed By: #### P TT #### [facility] [address] [place] [address] RBC (Bld) [#/Vol] 3.74 10*6/uL Low 4.20-5.40 [place] Comment on above: Performed By: #### P TT #### [facility] [address] [facility] [address] WBC (Bld) [#/Vol] 18.6 10*3/uL Critically high 4.8-10.8 [place] Comment on above: Performed By: #### P TT #### [facility] [address] [facility] [address] CBC auto differentialon 10-22 Interpretation and review of laboratory results Abnormal [place] Neutrophils Absolute 15.5 K/uL High 1.4 - 6 .5 K/uL [place] ECHO Complete 2D W Doppler W Coloron 11-16-2018 Transthoracic Echocardiography Report (TTE) Demographics Patient Name MERCY GANDHI Gender Female Patient Number [id number] Race Unknown Ethnicity Visit Number [id number] Room Number R238 Corporate ID Date of Study 11/16/2018 Referring Physician Niki Vazquez DO Number Date of 1935 [address] Age 83 year(s) Interpreting [facility] Physician Cardiology Cain Quinonez MD Procedure [...] Gradient: 4.03 mmHg Estimated PASP: 40.86 mmHg HI ED Velocity: 1.27 m/s LVOT Peak Velocity: [...] Root: 2.35 cm LVOT Diameter: 1.65 cm [facility] [place], [place] Joseph, Chpo Incoming Cardiovascular Results From [facility] - 11/16/2018 5:05 PM EDT Transthoracic Echocardiography Report (TTE) Demographics Patient Name MADRID HIRAM Gender Female Patient Number [id number] Race Unknown Ethnicity Visit Number [id number] Room Number R238 Corporate ID Date of Study 11/16/2018 Referring Physician DO Natalia Dickens Date of 1935 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 Age 83 year(s) Interpreting [facility] Physician Cardiology Cain Quinonez MD Procedure [...] Gradient: 4.03 mmHg Estimated PASP: 40.86 mmHg HI ED Velocity: 1.27 m/s LVOT Peak Velocity: [...] Root: 2.35 cm LVOT Diameter: 1.65 cm [place] Microscopic Urinalysison Bacteria, UA Negative /HPF [place] Epi Cells 3-5 /HPF [place] Interpretation and review of laboratory results Abnormal [place] RBC (U) [#/Vol] 3-5 Abnormal [place] Renal Epithelial, Urine 0-2 Abnormal /HPF [place] WBC, UA None seen [place] CAROTID ARTERY BILATERALo n 11-16-2018 [...] Damped resistive CCA decreased decreased resistive CCA [place] Joseph, Chpo Incoming Radiant Results From [employer] - 11/16/2018 10:40 AM EDT Patient : [...] Damped resistive CCA decreased decreased resistive CCA [facility] Patient 5 : 1935 Age: 83 years [...] and noncalcified plaque bilateral carotid arterial systems [place] DUP LOWER EXTREMITIES VAUGHN ATERAL [...] De Souza MD 11/17/18 Final result Normal [facility] Urine Microscopicon 11-17-19 19 Bacteria LM.HPF (Urine sed) [#/Area] Negative Normal [facility] Comment on above: Performed By: #### P TT #### [facility] [address] [address] Epithelial cells LM Ql (Urine sed) 3-5 Normal [facility] Comment on above: Performed By: #### P TT #### [facility] [address] [address] RBC (U) [#/Vol] 3-5 Abnormal 0-2 [facility] Comment on above: Performed By: #### P TT #### [facility] [address] [address] Urine Renal Epithelial 0-2 Abnormal [facility] Comment on above: Performed By: #### P TT #### [facility] [address] [place] [address] WBC (U) [#/Vol] None seen Normal 0-5 [facility] Comment on above: Performed By: #### P TT #### [facility] [address] [address] XR CHEST PORTABLEon 11-17-19 19 Joseph, Chpo Incoming Radiant Results From [employer] - 11/16/2018 10:21 AM EDT EXAMINATION: XR CHEST PORTABLE CLINICAL HISTORY: fever . History of back surgery. COMPARISONS: None available. FINDINGS: Single AP portable view the chest obtained on November 15, 2018 at 2124 hours. The heart is not enlarged. Mediastinum is not widened. Calcified aorta is not dilated. Lungs are clear. The chest wall is unremarkable. CONCLUSION: NO ACUTE PROCESS [place] EXAMINATION: XR CHES T PORTABLE CLINICAL HISTORY: fever . History of back surgery. COMPARISONS: None available. FINDINGS: Single AP portable view the chest obtained on November 15, 2018 at 2124 hours. The heart is not enlarged. Mediastinum is not widened. Calcified aorta is not dilated. Lungs are clear. The chest wall is unremarkable. CONCLUSION: NO ACUTE PROCESS [place] CBC Auto Differentialon 10-22 Anisocytosis Ql (Bld) 1+ [place] Bands Relative 4 % Low 5 - 11 % [place] Basophils (Bld) [#/Vol] 0.0 10*3/uL 0 - 0.2 K/uL [place] Basophils/100 WBC (Bld) 0.6 % [place] Eosinophils (Bld) [#/Vol] 0.0 10*3/uL 0 - 0.7 K/uL [place] Eosinophils/100 WBC (Bld) 0.9 % [place] Erythrocyte distribution width (RBC) [Ratio] 14.6 % High 11.5 - 14.5 % [place] Hematocrit (Bld) [Volume fraction] 33.3 % Low 37 - 47 % [place] Hemoglobin (Bld) [Mass/Vol] 10.9 g/dL Low 12 - 16 g/dL [place] Interpretation and review of laboratory results Abnormal [place] Lymphocytes (Bld) [#/Vol] 3.5 10*3/uL 1 - 4.8 K/uL [place] Lymphocytes/100 WBC (Bld) 17.0 % [place] MCH (RBC) [Entitic mass] 29.8 pg 27 - 31.3 pg [place] MCHC (RBC) [Mass/Vol] 32.9 % Low 33 - 37 % [place] MCV (RBC) [Entitic vol] 90.7 fL 82 - 100 fL [place] Microcytes 1+ [place] Monocytes (Bld) [#/Vol] 0.0 10*3/uL Low 0.2 - 0.8 K/uL [place] Monocytes/100 WBC (Bld) 7.7 % [place] Neutrophils Absolute 17.3 K/uL High 1.4 - 6 .5 K/uL [place] Neutrophils/100 WBC (Bld) 79.0 % [place] PLATELET SLIDE REVIEW Normal [place] Platelets (Bld) [#/Vol] 315 10*3/uL 130 - 400 K/uL [place] RBC (Bld) [#/Vol] 3.67 10*6/uL Low [place] WBC (Bld) [#/Vol] 20.8 10*3/uL High 4.8 - 10.8 K/uL [place] CBC With Platelet No Differe ntialon 11-15-2018 Erythrocyte distribution width (RBC) [Ratio] 14.5 % Normal 11.5-14.5 [facility] Comment on above: Performed By: #### P TT #### [facility] [address] [place] [address] Hematocrit (Bld) [Volume fraction] 36.9 % Low 37.0-47.0 [facility] Comment on above: Performed By: #### P TT #### [facility] [address] [place] [address] Hemoglobin (Bld) [Mass/Vol] 11.9 g/dL Low 12.0-16.0 [facility] Comment on above: Performed By: #### P TT #### [facility] [address] [place] [address] MCH (RBC) [Entitic mass] 29.4 pg Normal 27.0-31.3 [facility] Comment on above: Performed By: #### P TT #### [facility] [address] [place] [address] MCHC (RBC) [Mass/Vol] 32.3 % Low 33.0-37.0 [facility] Comment on above: Performed By: #### P TT #### [facility] [address] [place] [address] MCV (RBC) [Entitic vol] 91.1 fL Normal 82.0-100.0 [facility] Comment on above: Performed By: #### P TT #### [facility] [address] [place] [address] Platelets (Bld) [#/Vol] 341 10*3/uL Normal 130-400 [facility] Comment on above: Performed By: #### P TT #### [facility] [address] [place] [address] RBC (Bld) [#/Vol] 4.05 10*6/uL Low 4.20-5.40 [facility] Comment on above: Performed By: #### P TT #### [facility] [address] [place] [address] WBC (Bld) [#/Vol] 19.8 10*3/uL Critically high 4.8-10.8 [facility] Comment on above: Performed By: #### P TT #### [facility] [address] [place] [address] CBC With Platelet and Differ entialon 11-15-2018 Anisocytosis Ql (Bld) 1+ Normal [facility] Comment on above: Performed By: #### P TT #### [facility] [address] [place] [address] Bands 4 % Low 5-11 [facility] Comment on above: Performed By: #### P TT #### [facility] [address] [place] [address] Basophils (Bld) [#/Vol] 0.0 10*3/uL Normal 0.0-0.2 [facility] Comment on above: Performed By: #### P TT #### [facility] [address] [place] [address] Basophils/100 WBC (Bld) 0.6 % Normal [facility] Comment on above: Performed By: #### P TT #### [facility] [address] [place] [address] Eosinophils (Bld) [#/Vol] 0.0 10*3/uL Normal 0.0-0.7 [facility] Comment on above: Performed By: #### P TT #### [facility] [address] [place] [address] Eosinophils/100 WBC (Bld) 0.9 % Normal [facility] Comment on above: Performed By: #### P TT #### [facility] [address] [place] [address] Lymphocytes (Bld) [#/Vol] 3.5 10*3/uL Normal 1.0-4.8 [facility] Comment on above: Performed By: #### P TT #### [facility] [address] [place] [address] Lymphocytes/100 WBC (Bld) 17.0 % Normal [facility] Comment on above: Performed By: #### P TT #### [facility] [address] [place] [address] Microcytic 1+ Normal [facility] Comment on above: Performed By: #### P TT #### [facility] [address] [place] [address] Monocytes (Bld) [#/Vol] 0.0 10*3/uL Low 0.2-0.8 [facility] Comment on above: Performed By: #### P TT #### [facility] [address] [place] [address] Monocytes/100 WBC (Bld) 7.7 % Normal [facility] Comment on above: Performed By: #### P TT #### [facility] [address] [place] [address] Neutrophils (Bld) [#/Vol] 17.3 10*3/uL Critically high 1.4-6.5 [facility] Comment on above: Performed By: #### P TT #### [facility] [address] [place] [address] Neutrophils/100 WBC (Bld) 79.0 % Normal [facility] Comment on above: Performed By: #### P TT #### [facility] [address] [place] [address] Platelet Slide Review Normal Normal [facility] Comment on above: Performed By: #### P TT #### [facility] [address] [place] [address] Erythrocyte distribution width (RBC) [Ratio] 14.6 % Critically high 11.5-14.5 [facility] Comment on above: Performed By: #### P TT #### [facility] [address] [place] [address] Hematocrit (Bld) [Volume fraction] 33.3 % Low 37.0-47.0 [facility] Comment on above: Performed By: #### P TT #### [facility] [address] [place] [address] Hemoglobin (Bld) [Mass/Vol] 10.9 g/dL Low 12.0-16.0 [facility] Comment on above: Performed By: #### P TT #### [facility] [address] [place] [address] MCH (RBC) [Entitic mass] 29.8 pg Normal 27.0-31.3 [facility] Comment on above: Performed By: #### P TT #### [facility] [address] [place] [address] MCHC (RBC) [Mass/Vol] 32.9 % Low 33.0-37.0 [facility] Comment on above: Performed By: #### P TT #### [facility] [address] [place] [address] MCV (RBC) [Entitic vol] 90.7 fL Normal 82.0-100.0 M [facility] Comment on above: Performed By: #### P TT #### [facility] [address] [place] [address] Platelets (Bld) [#/Vol] 315 10*3/uL Normal 130-400 [facility] [facility] Comment [facility] above: Performed By: #### P TT #### [facility] [address] [place] [address] RBC (Bld) [#/Vol] 3.67 10*6/uL Low 4.20-5.40 [facility] Comment on above: Performed By: #### P TT #### [facility] [address] [place] [address] WBC (Bld) [#/Vol] 20.8 10*3/uL Critically high 4.8-10.8 [facility] Comment on above: Performed By: #### P TT #### [facility] [address] [place] [address] Comprehensive Metabolic Pane l reflex Mgon 11-15-2018 Albumin [Mass/Vol] 3.3 g/dL Low 3.5-4.6 [facility] Comment on above: Performed By: #### P TT #### [facility] [address] [place] [address] ALP [Catalytic activity/Vol] 71 U/L Normal 40-130 [facility] Comment on above: Performed By: #### P TT #### [facility] [address] [place] [address] ALT [Catalytic activity/Vol] 12 U/L Normal 0-33 [facility] Comment on above: Performed By: #### P TT #### [facility] [address] [place] [address] Anion gap [Moles/Vol] 11 mmol/L Normal 9-15 [facility] Comment on above: Performed By: #### P TT #### [facility] [address] [place] [address] AST [Catalytic activity/Vol] 28 U/L Normal 0-35 [facility] Comment on above: Performed By: #### P TT #### [facility] [address] [place] [address] Bilirubin [Mass/Vol] 0.4 mg/dL Normal 0.2-0.7 [facility] Comment on above: Performed By: #### P TT #### [facility] [address] [place] [address] Calcium [Mass/Vol] 9.1 mg/dL Normal 8.5-9.9 [facility] Comment on above: Performed By: #### P TT #### [facility] [address] [place] [address] Chloride [Moles/Vol] 98 mmol/L Normal 95-107 [facility] Comment on above: Performed By: #### P TT #### [facility] [address] [place] [address] CO2 [Moles/Vol] 27 mmol/L Normal 20-31 [facility] Comment on above: Performed By: #### P TT #### [facility] [address] [place] [address] Creatinine [Mass/Vol] 0.59 mg/dL Normal 0.50-0.90 [facility] Comment on above: Performed By: #### P TT #### [facility] [address] [place] [address] GFR/1.73 sq M predicted among blacks MDRD (S/P/Bld) [Vol rate/Area] mL/min/{1.73_m2} Normal >60 [facility] Comment on above: Result Comment: >60 mL/min/1.73m2 EGFR, calc. for ages 18 and older using the MDRD formula (not corrected for weight), is valid for stable renal function. Performed By: #### P TT #### [facility] [address] [place] [address] GFR/1.73 sq M.predicted MDRD (S/P/Bld) [Vol rate/Area] mL/min/{1.73_m2} Normal >60 [facility] Comment on above: Result Comment: >60 mL/min/1.73m2 EGFR, calc. for ages 18 and older using the MDRD formula (not corrected for weight), is valid for stable renal function. Performed By: #### P TT #### [facility] [address] [place] [address] Globulin (S) [Mass/Vol] 3.2 g/dL Normal 2.3-3.5 [facility] Comment on above: Performed By: #### P TT #### [facility] [address] [place] [address] Glucose [Mass/Vol] 123 mg/dL Critically high 70-99 [facility] Comment on above: Performed By: #### P TT #### [facility] [address] [place] [address] Potassium reflex Mg 3.8 mEq/L Normal 3.4-4.9 [facility] Comment on above: Performed By: #### P TT #### [facility] [address] [place] [address] Protein [Mass/Vol] 6.5 g/dL Normal 6.3-8.0 [facility] Comment on above: Performed By: #### P TT #### [facility] [address] [place] [address] Sodium [Moles/Vol] 136 mmol/L Normal 135-144 [facility] Comment on above: Performed By: #### P TT #### [facility] [address] [place] [address] Urea nitrogen [Mass/Vol] 6 mg/dL Low 8-23 [facility] Comment on above: Performed By: #### P TT #### [facility] [address] [place] [address] Culture, Blood 2on 9 Culture, Blood 2 ORDERED BY: ADDY COKER SOURCE: Blood COLLECTED: 11/15/18 16:37 ANTIBIOTICS AT DI.: RECEIVED : 11/15/18 16:42 Culture, Blood 2 FINAL 11/20/18 18:15 No growth after 5 days of incubation. Normal [facility] Comment on above: Performed By: #### C MP #### [facility] [address] [place] [address] Culture, Urineon 11-15-2018 Culture, Urine ORDERED BY: ADDY COKER SOURCE: Urine Clean Catch COLLECTED: 11/15/18 19:05 ANTIBIOTICS AT DI.: RECEIVED : 11/15/18 19:05 Culture, Urine FINAL 11/17/18 07:28 No growth 24 hours Normal [facility] Comment on above: Performed By: #### C MP #### [facility] [address] [place] [address] URINE RT REFLEX TO CULTUREon 11-15-2018 Bilirubin Urine Negative Negative [place] Blood, Urine TRACE Abnormal Negative [place] Clarity, UA Clear Clear [place] Color, UA Yellow Straw/Yello w [place] Glucose, Ur Negative Negative mg/dL [place] Interpretation and review of laboratory results Abnormal [place] Ketones Ql (U) Negative Negative mg/dL [place] Leukocyte esterase Test strip Ql (U) Negative Negative [place] Nitrite, Urine Negative Negative [place] pH, UA 7.0 [place] Protein (U) [Mass/Vol] 30 mg/dL Abnormal Negative [place], [place] Specific [place], UA 1.014 [place], [place] Urine Reflex to Culture YES M [place] Urobilinogen, Urine 0.2 <2.0 E.U./dL [place] CAROTID ARTERY BILATERALo n 11-15-2018 [...] Mohsen Childers MD 11/16/18 Final result Normal [facility] Urinalysis, reflex to cultur kendall 11-15-2018 Bilirubin Ql (U) Negative Normal Negative [facility] Comment on above: Performed By: #### P TT #### [facility] [address] [place] [address] Clarity (U) Clear Normal Clear [facility] Comment on above: Performed By: #### P TT #### [facility] [address] [place] [address] Color (U) Yellow Normal [place] [facility] Comment on above: Performed By: #### P TT #### [facility] [address] [place] [address] Glucose Ql (U) Negative Normal Negative [facility] Comment on above: Performed By: #### P TT #### [facility] [address] [place] [address] Hemoglobin Ql (U) TRACE Abnormal Negative [facility] Comment on above: Performed By: #### P TT #### [facility] [address] [place] [address] Ketones Ql (U) Negative Normal Negative [facility] Comment on above: Performed By: #### P TT #### [facility] [address] [place] [address] Leukocyte esterase Test strip Ql (U) Negative Normal Negative [facility] Comment on above: Performed By: #### P TT #### [facility] [address] [place] [address] Nitrite Ql (U) Negative Normal Negative [facility] Comment on above: Performed By: #### P TT #### [facility] [address] [place] [address] pH (U) 7.0 [pH] Normal 5.0-9.0 [facility] Comment on above: Performed By: #### P TT #### [facility] [address] [place] [address] Protein Ql (U) 30 mg/dL Abnormal Negative [facility] Comment on above: Performed By: #### P TT #### [facility] [address] [place] [address] Specific gravity (U) [Rel density] 1.014 Normal 1.005-1.03 [facility] Comment on above: Performed By: #### P TT #### [facility] [address] [place] [address] Urine Reflexed to Culture YES Normal [facility] Comment on above: Performed By: #### P TT #### [facility] [address] [place] [address] Urobilinogen Qn (U) 0.2 {Juan'U}/dL Normal < 2.0 [facility] Comment on above: Performed By: #### P TT #### [facility] [address] [place] [address] XR CHEST PORTABLEon 11-16-19 19 XR CHEST [...] Pearl Varghese MD 11/16/18 Final result Normal [facility] Basic Metabolic Panel Reflex Mgon 11-14-2018 Anion gap [Moles/Vol] 10 mmol/L Normal 9-15 [facility] Comment on above: Performed By: #### P T #### [facility] [address] [place] [address] Calcium [Mass/Vol] 8.4 mg/dL Low 8.5-9.9 [facility] Comment on above: Performed By: #### P T #### [facility] [address] [place] [address] Chloride [Moles/Vol] 100 mmol/L Normal 95-107 [facility] Comment on above: Performed By: #### P T #### [facility] [address] [place] [address] CO2 [Moles/Vol] 25 mmol/L Normal 20-31 [facility] Comment on above: Performed By: #### P T #### [facility] [address] [place] [address] Creatinine [Mass/Vol] 0.66 mg/dL Normal 0.50-0.90 [facility] Comment on above: Performed By: #### P T #### [facility] [address] [place] [address] GFR/1.73 sq M predicted among blacks MDRD (S/P/Bld) [Vol rate/Area] mL/min/{1.73_m2} Normal >60 [facility] Comment on above: Result Comment: >60 mL/min/1.73m2 EGFR, calc. for ages 18 and older using the MDRD formula (not corrected for weight), is valid for stable renal function. Performed By: #### P T #### [facility] [address] [place] [address] GFR/1.73 sq M.predicted MDRD (S/P/Bld) [Vol rate/Area] mL/min/{1.73_m2} Normal >60 [facility] Comment on above: Result Comment: >60 mL/min/1.73m2 EGFR, calc. for ages 18 and older using the MDRD formula (not corrected for weight), is valid for stable renal function. Performed By: #### P T #### [facility] [address] [place] [address] Glucose [Mass/Vol] 144 mg/dL Critically high 70-99 M [facility] Comment on above: Performed By: #### P T #### [facility] [address] [place] [address] Potassium reflex Mg 4.1 mEq/L Normal 3.4-4.9 [facility] Comment on above: Performed By: #### P T #### [facility] [address] [place] [address] Sodium [Moles/Vol] 135 mmol/L Normal 135-144 [facility] Comment on above: Performed By: #### P T #### [facility] [address] [place] [address] Urea nitrogen [Mass/Vol] 6 mg/dL Low 8-23 [facility] Comment on above: Performed By: #### P T #### [facility] [address] [place] [address] CBC With Platelet and Differ entialon 11-14-2018 Basophils (Bld) [#/Vol] 0.1 10*3/uL Normal 0.0-0.2 [facility] Comment on above: Performed By: #### P T #### [facility] [address] [place] [address] Basophils/100 WBC (Bld) 0.5 % Normal [facility] Comment on above: Performed By: #### P T #### [facility] [address] [place] [address] Eosinophils (Bld) [#/Vol] 0.1 10*3/uL Normal 0.0-0.7 [facility] Comment on above: Performed By: #### P T #### [facility] [address] [place] [address] Eosinophils/100 WBC (Bld) 0.8 % Normal [facility] Comment on above: Performed By: #### P T #### [facility] [address] [place] [address] Erythrocyte distribution width (RBC) [Ratio] 14.1 % Normal 11.5-14.5 [facility] Comment on above: Performed By: #### P T #### [facility] [address] [place] [address] Hematocrit (Bld) [Volume fraction] 35.4 % Low 37.0-47.0 [facility] Comment on above: Performed By: #### P T #### [facility] [address] [place] [address] Hemoglobin (Bld) [Mass/Vol] 11.7 g/dL Low 12.0-16.0 [facility] Comment on above: Performed By: #### P T #### [facility] [address] [place] [address] Lymphocytes (Bld) [#/Vol] 2.7 10*3/uL Normal 1.0-4.8 [facility] Comment on above: Performed By: #### P T #### [facility] [address] [place] [address] Lymphocytes/100 WBC (Bld) 15.7 % Normal [facility] Comment on above: Performed By: #### P T #### [facility] [address] [place] [address] MCH (RBC) [Entitic mass] 29.7 pg Normal 27.0-31.3 [facility] Comment on above: Performed By: #### P T #### [facility] [address] [place] [address] MCHC (RBC) [Mass/Vol] 33.1 % Normal 33.0-37.0 [facility] Comment on above: Performed By: #### P T #### [facility] [address] [place] [address] MCV (RBC) [Entitic vol] 89.6 fL Normal 82.0-100.0 M [facility] Comment on above: Performed By: #### P T #### [facility] [address] [place] [address] Monocytes (Bld) [#/Vol] 1.4 10*3/uL Critically high 0.2-0. 8 [facility] Comment on above: Performed By: #### P T #### [facility] [address] [place] [address] Monocytes/100 WBC (Bld) 7.9 % Normal M [facility] Comment on above: Performed By: #### P T #### [facility] [address] [place] [address] Neutrophils (Bld) [#/Vol] 12.8 10*3/uL Critically high 1.4-6.5 [facility] Comment on above: Performed By: #### P T #### [facility] [address] [place] [address] Neutrophils/100 WBC (Bld) 75.1 % Normal [facility] Comment on above: Performed By: #### P T #### [facility] [address] [place] [address] Platelets (Bld) [#/Vol] 345 10*3/uL Normal 130-400 [facility] Comment on above: Performed By: #### P T #### [facility] [address] [place] [address] RBC (Bld) [#/Vol] 3.95 10*6/uL Low 4.20-5.40 [facility] Comment on above: Performed By: #### P T #### [facility] [address] [place] [address] WBC (Bld) [#/Vol] 17.0 10*3/uL Critically high 4.8-10.8 [facility] Comment on above: Performed By: #### P T #### [facility] [address] [place] [address] POCT Glucoseon 11-14-2018 Glucose [Mass/Vol] 116 mg/dL Critically high 60-115 [facility] Comment on above: Performed By: #### P T #### [facility] [address] [place] [address] POC Performed on ACCU-CHEK Normal [facility] Comment on above: Performed By: #### P T #### [facility] [address] [place] [address] XR LUMBAR SPINE (2-3 VIEWS)o n 11-14-2018 [...] Mohsen Childers MD 11/14/18 Final result Normal [facility] Basic Metabolic Panel Reflex Mgon 11-13-2018 Anion gap [Moles/Vol] 13 mmol/L Normal 9-15 [facility] Comment on above: Performed By: #### P T #### [facility] [address] [place] [address] Calcium [Mass/Vol] 9.0 mg/dL Normal 8.5-9.9 [facility] Comment on above: Performed By: #### P T #### [facility] [address] [place] [address] Chloride [Moles/Vol] 101 mmol/L Normal 95-107 [facility] Comment on above: Performed By: #### P T #### [facility] [address] [place] [address] CO2 [Moles/Vol] 24 mmol/L Normal 20-31 [facility] Comment on above: Performed By: #### P T #### [facility] [address] [place] [address] Creatinine [Mass/Vol] 0.62 mg/dL Normal 0.50-0.90 [facility] Comment on above: Performed By: #### P T #### [facility] [address] [place] [address] GFR/1.73 sq M predicted among blacks MDRD (S/P/Bld) [Vol rate/Area] mL/min/{1.73_m2} Normal >60 [facility] Comment on above: Result Comment: >60 mL/min/1.73m2 EGFR, calc. for ages 18 and older using the MDRD formula (not corrected for weight), is valid for stable renal function. Performed By: #### P T #### [facility] [address] [place] [address] GFR/1.73 sq M.predicted MDRD (S/P/Bld) [Vol rate/Area] mL/min/{1.73_m2} Normal >60 [facility] Comment on above: Result Comment: >60 mL/min/1.73m2 EGFR, calc. for ages 18 and older using the MDRD formula (not corrected for weight), is valid for stable renal function. Performed By: #### P T #### [facility] [address] [place] [address] Glucose [Mass/Vol] 136 mg/dL Critically high 70-99 M [facility] Comment on above: Performed By: #### P T #### [facility] [address] [place] [address] Potassium reflex Mg 3.6 mEq/L Normal 3.4-4.9 [facility] Comment on above: Performed By: #### P T #### [facility] [address] [place] [address] Sodium [Moles/Vol] 138 mmol/L Normal 135-144 [facility] Comment on above: Performed By: #### P T #### [facility] [address] [place] [address] Urea nitrogen [Mass/Vol] 7 mg/dL Low 8-23 [facility] Comment on above: Performed By: #### P T #### [facility] [address] [place] [address] CBC With Platelet No Differe ntialon 11-13-2018 Erythrocyte distribution width (RBC) [Ratio] 14.2 % Normal 11.5-14.5 [facility] Comment on above: Performed By: #### P T #### [facility] [address] [place] [address] Hematocrit (Bld) [Volume fraction] 40.3 % Normal 37.0-47.0 [facility] Comment on above: Performed By: #### P T #### [facility] [address] [place] [address] Hemoglobin (Bld) [Mass/Vol] 13.1 g/dL Normal 12.0-16.0 [facility] Comment on above: Performed By: #### P T #### [facility] [address] [place] [address] MCH (RBC) [Entitic mass] 29.1 pg Normal 27.0-31.3 [facility] Comment on above: Performed By: #### P T #### [facility] [address] [place] [address] MCHC (RBC) [Mass/Vol] 32.4 % Low 33.0-37.0 [facility] Comment on above: Performed By: #### P T #### [facility] [address] [place] [address] MCV (RBC) [Entitic vol] 89.9 fL Normal 82.0-100.0 M [facility] Comment on above: Performed By: #### P T #### [facility] [address] [place] [address] Platelets (Bld) [#/Vol] 394 10*3/uL Normal 130-400 [facility] Comment on above: Performed By: #### P T #### [facility] [address] [place] [address] RBC (Bld) [#/Vol] 4.48 10*6/uL Normal 4.20-5.40 [facility] Comment on above: Performed By: #### P T #### [facility] [address] [place] [address] WBC (Bld) [#/Vol] 11.8 10*3/uL Critically high 4.8-10.8 [facility] Comment on above: Performed By: #### P T #### [facility] [address] [place] [id number] Culture, MRSA Screenon 11-13 Culture, MRSA Screen ORDERED BY: BRENNAN HERRON SOURCE: Nares COLLECTED: 11/13/18 09:29 ANTIBIOTICS AT DI.: RECEIVED : 11/13/18 09:29 Culture, MRSA Screen FINAL 11/14/18 08:02 No MRSA isolated Normal [facility] Comment on above: Performed By: #### P T #### [facility] [address] [place] [id number] FLUORO FOR SURGICAL PROCEDUR ESon 11-13-2018 FLUORO [...] Mohsen Childers MD 11/13/18 Final result Normal [facility] Surgical Specimenon 11-14-19 19 Surgical Specimen [facility] [address] [place], [place] [address], [place] [id number] FINAL SURGICAL PATHOLOGY REPORT Patient Name: HIRAM MADRID Accession No: [id number] Age Sex: 1935 Location: [facility] [id number] Account No: [id number] Collected: 11/13/2018 Med Rec No: [id number] Received: 11/14/2018 Attend Phys: LENNY CORRAL Completed: [...] two cassettes after brief decalcification. UVALDO/NIKKY CPT: 07464 X1 [id number] X1 STANLEY GRAFF M.D. 11/15/2018 Electronically signed out by Page 1 of 1 [facility] Comment on above: Performed By: #### P TT #### [facility] [address] [place] [address] Type and Screen Capture 3 sc rn cellon 11-13-2018 Type and Screen Capture 3 scrn cell PATIENT: MERCY GANDHI LOC: ERICK,ORKAMRONOL,NON BILL# : [id number] : 1935 SEX: F ORDERED BY: GOPAL AMIN ORDERED : 11/13/2018 08:10 COLLECTED: 11/13/2018 09:24 ORDER : [id number] RECEIVED : 11/13/2018 09:24 TEST NAME RESULT UNITS RANGES ABN FL ST ABORH Capture A POS F Antibody 3 Cell Scrn Captu NEG F Normal [facility] Comment on above: Performed By: #### T S3C #### [facility] [address] [place] [address] XR SPINE ENTIRE (2-3 VIEWS)o n 11-13-2018 [...] Mohsen Childers MD 11/13/18 Final result Normal [facility] MRI LUMBAR SPINE W WO CONTRA [...] SIGNS OF UNDERLYING PATHOLOGY OR RECENT INJURY. [facility] [place], [place] Joseph, Chpo Incoming Radiant Results From [employer] - 11/05/2018 3:07 PM EDT EXAMINATION: MRI [...] SIGNS OF UNDERLYING PATHOLOGY OR RECENT INJURY. [facility], [place] MRI LUMBAR SPINE W WO CONTRAST EXAMINATION: [...] Pearl Varghese MD 11/05/18 Final result Normal [facility] Otheron 11-05-2018 Joseph, Chpo Incoming Radiant Results From [employer] - 11/05/2018 1:21 PM EDT EXAMINATION: XR [...] AND POSTOPERATIVE FINDINGS, WITHOUT ACUTE SUPERIMPOSED ABNORMALITY. [place] EXAMINATION: XR LUMB AR SPINE (MIN [...] AND POSTOPERATIVE FINDINGS, WITHOUT ACUTE SUPERIMPOSED ABNORMALITY. [place] [place] XR CHEST (2 VW)on 11-05-2018 XR [...] Pearl Varghese MD 11/05/18 Final result Normal [facility] XR LUMBAR SPINE (MIN 4 VIEWS [...] Pearl Varghese MD 11/05/18 Final result Normal [facility] APTTon 11-04-2018 aPTT Coag (Bld) [Time] 27.9 s [facility] [place], [place] Comment on above: Effective 09/06/2018: Please note methodology and/or reference ranges have changed. aPTT - Heparin Therapeutic Range: 74.0 - 106 seconds C-Reactive Proteinon 11-04- 019 CRP [Mass/Vol] 1.3 mg/L Normal 0.0-5.0 [facility] Comment on above: Performed By: #### C RP #### [facility] [address] [place] [address] CRP [Mass/Vol] 1.3 mg/L 0 - 5 mg/L [place] CBC Auto Differentialon 10-21 Basophils (Bld) [#/Vol] 0.1 10*3/uL 0 - 0.2 K/uL [place] Basophils/100 WBC (Bld) 1.1 % [place] Eosinophils (Bld) [#/Vol] 0.2 10*3/uL 0 - 0.7 K/uL [place] Eosinophils/100 WBC (Bld) 1.3 % [place] Erythrocyte distribution width (RBC) [Ratio] 13.9 % 11.5 - 14.5 % [place] Hematocrit (Bld) [Volume fraction] 41.3 % 37 - 47 % [place] Hemoglobin (Bld) [Mass/Vol] 14.3 g/dL 12 - 16 g/dL [place] Interpretation and review of laboratory results Abnormal [place] Lymphocytes (Bld) [#/Vol] 3.5 10*3/uL 1 - 4.8 K/uL [place] Lymphocytes/100 WBC (Bld) 28.2 % [place] MCH (RBC) [Entitic mass] 30.5 pg 27 - 31.3 pg [place] MCHC (RBC) [Mass/Vol] 34.6 % 33 - 37 % [place] MCV (RBC) [Entitic vol] 88.0 fL 82 - 100 fL [place] Monocytes (Bld) [#/Vol] 0.8 10*3/uL 0.2 - 0.8 K/uL [place] Monocytes/100 WBC (Bld) 6.8 % [place] Neutrophils Absolute 7.7 K/uL High 1.4 - 6 .5 K/uL [place] Neutrophils/100 WBC (Bld) 62.6 % [place] Platelets (Bld) [#/Vol] 435 10*3/uL High 130 - 400 K/uL [place] RBC (Bld) [#/Vol] 4.69 10*6/uL [place] WBC (Bld) [#/Vol] 12.4 10*3/uL High 4.8 - 10.8 K/uL [place] CBC With Platelet and Differ entialon 11-04-2018 Basophils (Bld) [#/Vol] 0.1 10*3/uL Normal 0.0-0.2 [facility] Comment on above: Performed By: #### C BCWD #### [facility] [address] [place] [address] Basophils/100 WBC (Bld) 1.1 % Normal [facility] Comment on above: Performed By: #### C BCWD #### [facility] [address] [place] [address] Eosinophils (Bld) [#/Vol] 0.2 10*3/uL Normal 0.0-0.7 [facility] Comment on above: Performed By: #### C BCWD #### [facility] [address] [place] [address] Eosinophils/100 WBC (Bld) 1.3 % Normal [facility] Comment on above: Performed By: #### C BCWD #### [facility] [address] [place] [address] Erythrocyte distribution width (RBC) [Ratio] 13.9 % Normal 11.5-14.5 [facility] Comment on above: Performed By: #### C BCWD #### [facility] [address] [place] [address] Hematocrit (Bld) [Volume fraction] 41.3 % Normal 37.0-47.0 [facility] Comment on above: Performed By: #### C BCWD #### [facility] [address] [place] [address] Hemoglobin (Bld) [Mass/Vol] 14.3 g/dL Normal 12.0-16.0 [facility] Comment on above: Performed By: #### C BCWD #### [facility] [address] [place] [address] Lymphocytes (Bld) [#/Vol] 3.5 10*3/uL Normal 1.0-4.8 [facility] Comment on above: Performed By: #### C BCWD #### [facility] [address] [place] [address] Lymphocytes/100 WBC (Bld) 28.2 % Normal [facility] Comment on above: Performed By: #### C BCWD #### [facility] [address] [place] [address] MCH (RBC) [Entitic mass] 30.5 pg Normal 27.0-31.3 [facility] Comment on above: Performed By: #### C BCWD #### [facility] [address] [place] [address] MCHC (RBC) [Mass/Vol] 34.6 % Normal 33.0-37.0 [facility] Comment on above: Performed By: #### C BCWD #### [facility] [address] [place] [address] MCV (RBC) [Entitic vol] 88.0 fL Normal 82.0-100.0 [facility] Comment on above: Performed By: #### C BCWD #### [facility] [address] [place] [address] Monocytes (Bld) [#/Vol] 0.8 10*3/uL Normal 0.2-0.8 [facility] Comment on above: Performed By: #### C BCWD #### [facility] [address] [place] [address] Monocytes/100 WBC (Bld) 6.8 % Normal M [facility] Comment on above: Performed By: #### C BCWD #### [facility] [address] [place] [address] Neutrophils (Bld) [#/Vol] 7.7 10*3/uL Critically high 1.4-6.5 [facility] Comment on above: Performed By: #### C BCWD #### [facility] [address] [place] [address] Neutrophils/100 WBC (Bld) 62.6 % Normal [facility] Comment on above: Performed By: #### C BCWD #### [facility] [address] [place] [address] Platelets (Bld) [#/Vol] 435 10*3/uL Critically high 130-40 0 [facility] Comment on above: Performed By: #### C BCWD #### [facility] [address] [place] [address] RBC (Bld) [#/Vol] 4.69 10*6/uL Normal 4.20-5.40 [facility] Comment on above: Performed By: #### C BCWD #### [facility] [address] [place] [address] WBC (Bld) [#/Vol] 12.4 10*3/uL Critically high 4.8-10.8 [facility] Comment on above: Performed By: #### C BCWD #### [facility] [address] [place] [address] Comprehensive Metabolic Pane bebeto 11-04-2018 Anion gap [Moles/Vol] 14 mmol/L Normal 9-15 [facility] Comment on above: Order Comment: CALL [facility] tel. [phone], Potassium results called to and read back by onofre Millan RN, 11/04/2018 16:24, by WEBAM Performed By: #### C MP #### [facility] [address] [place] [address] Bilirubin [Mass/Vol] 0.4 mg/dL Normal 0.2-0.7 [facility] Comment on above: Order Comment: CALL [facility] tel. [phone], Potassium results called to and read back by onofre Millan RN, 11/04/2018 16:24, by WEBAM Performed By: #### C MP #### [facility] [address] [place] [address] GFR/1.73 sq M predicted among blacks MDRD (S/P/Bld) [Vol rate/Area] mL/min/{1.73_m2} Normal >60 [facility] Comment on above: Order Comment: CALL [facility] tel. [phone], Potassium results called to and read back by onofre Millan RN, 11/04/2018 16:24, by WEBAM Result Comment: >60 mL/min/1.73m2 EGFR, calc. for ages 18 and older using the MDRD formula (not corrected for weight), is valid for stable renal function. Performed By: #### C MP #### [facility] [address] [place] [address] GFR/1.73 sq M.predicted MDRD (S/P/Bld) [Vol rate/Area] mL/min/{1.73_m2} Normal >60 [facility] Comment on above: Order Comment: CALL [facility] tel. [phone], Potassium results called to and read back by onofre Millan RN, 11/04/2018 16:24, by WEBAM Result Comment: >60 mL/min/1.73m2 EGFR, calc. for ages 18 and older using the MDRD formula (not corrected for weight), is valid for stable renal function. Performed By: #### C MP #### [facility] [address] [place] [address] Albumin [Mass/Vol] 4.5 g/dL Normal 3.5-4.6 [facility] Comment on above: Order Comment: CALL [facility] tel. [phone], Potassium results called to and read back by onofre Millan RN, 11/04/2018 16:24, by WEBAM Performed By: #### C MP #### [facility] [address] [address] ALP [Catalytic activity/Vol] 76 U/L Normal 40-130 [facility] Comment on above: Order Comment: CALL [facility] tel. [phone], Potassium results called to and read back by onofre Millan RN, 11/04/2018 16:24, by WEBAM Performed By: #### C MP #### [facility] [address] [facility] [place] [address] ALT [Catalytic activity/Vol] 15 U/L Normal 0-33 [facility] Comment on above: Order Comment: CALL [facility] tel. [phone], Potassium results called to and read back by onofre Millan RN, 11/04/2018 16:24, by WEBAM Performed By: #### C MP #### [facility] [address] [facility] [address] AST [Catalytic activity/Vol] 20 U/L Normal 0-35 [facility] Comment on above: Order Comment: CALL [facility] tel. [phone], Potassium results called to and read back by onofre Millan RN, 11/04/2018 16:24, by WEBAM Performed By: #### C MP #### [facility] [address] [facility] [address] Calcium [Mass/Vol] 9.9 mg/dL Normal 8.5-9.9 [facility] Comment on above: Order Comment: CALL [facility] tel. [phone], Potassium results called to and read back by onofre Millan RN, 11/04/2018 16:24, by WEBAM Performed By: #### C MP #### [facility] [address] [facility] [address] Chloride [Moles/Vol] 96 mmol/L Normal 95-107 [facility], [place] Comment on above: Order Comment: CALL [facility] LCED tel. [phone], Potassium results called to and read back by onofre Millan RN, 11/04/2018 16:24, by WEBAM Performed By: #### C MP #### [facility] [address] [facility] [facility] [address] CO2 [Moles/Vol] 24 mmol/L Normal 20-31 [place] Comment on above: Order Comment: CALL [facility] tel. [phone], Potassium results called to and read back by onofre Millan RN, 11/04/2018 16:24, by WEBAM Performed By: #### C MP #### [facility] [address] [place] [address] Creatinine [Mass/Vol] 0.67 mg/dL Normal 0.50-0.90 [place] Comment on above: Order Comment: CALL [facility] tel. [phone], Potassium results called to and read back by onofre Millan RN, 11/04/2018 16:24, by WEBAM Performed By: #### C MP #### [facility] [address] [facility] [facility] [address] Globulin (S) [Mass/Vol] 2.8 g/dL Normal 2.3-3.5 [place] Comment on above: Order Comment: CALL [facility] tel. [phone], Potassium results called to and read back by onofre Millan RN, 11/04/2018 16:24, by WEBAM Performed By: #### C MP #### [facility] [address] [place] [address] Glucose [Mass/Vol] 109 mg/dL Critically high 70-99 M [place], [place] Comment on above: Order Comment: CALL [facility] tel. [phone], Potassium results called to and read back by onofre Millan RN, 11/04/2018 16:24, by WEBAM Performed By: #### C MP #### [facility] [address] [place] [address] Potassium [Moles/Vol] 3.0 mmol/L Critically low 3.4-4.9 [place] Comment on above: Order Comment: CALL [facility] tel. [phone], Potassium results called to and read back by onofre Millan RN, 11/04/2018 16:24, by WEBAM Performed By: #### C MP #### [facility] [address] [place] [address] Protein [Mass/Vol] 7.3 g/dL Normal 6.3-8.0 [place] Comment on above: Order Comment: CALL [facility] tel. [phone], Potassium results called to and read back by onofre Millan RN, 11/04/2018 16:24, by WEBAM Performed By: #### C MP #### [facility] [address] [place] [address] Sodium [Moles/Vol] 134 mmol/L Low 135-144 [place] Comment on above: Order Comment: CALL [facility] tel. [phone], Potassium results called to and read back by onofre Millan RN, 11/04/2018 16:24, by WEBAM Performed By: #### C MP #### [facility] [address] [place] [address] Urea nitrogen [Mass/Vol] 8 mg/dL Normal 8-23 [place] Comment on above: Order Comment: CALL [facility] ED tel. [phone], Potassium results called to and read back by onofre Millan RN, 11/04/2018 16:24, by WEBAM Performed By: #### C MP #### [facility] [address] [facility] [address] Anion gap [Moles/Vol] 14 mmol/L [place] Bilirubin Ql (U) 0.4 mg/dL 0.2 - 0.7 mg/dL [place] GFR >60.0 >60 [place], [place] Comment on above: >60 mL/min/1.73m2 EG FR, calc. for ages 18 and older using the MDRD formula (not corrected for weight), is valid for stable renal function. GFR Non- >60.0 >60 [place] Comment on above: >60 mL/min/1.73m2 EG FR, calc. for ages 18 and older using the MDRD formula (not corrected for weight), is valid for stable renal function. Interpretation and review of laboratory results Abnormal [place] Potassium [Moles/Vol] CALL [facility]ED tel . [phone], Potassium results called to and read back by onofre Millan RN, 11/04/2018 16:24, by TAMMY [place] Partial Thromboplastin Timeo n 11-04-2018 aPTT Coag (Bld) [Time] 27.9 s Normal 24.4-36.8 [place] Comment on above: Result Comment: Effe ctive 09/06/2018: Please note methodology and/or reference ranges have changed. aPTT - Heparin Therapeutic Range: 74.0 - 106 seconds Performed By: #### P TT #### [facility] [address] [facility] [address] Prothrombin Timeon 9 INR Coag (PPP) [Relative time] 0.9 {INR} Normal [facility] Comment on above: Result Comment: Warf camden Therapy INR Therapeutic: 2.0-3.0 With Mechanical Valve: >2.5 Low-intensity Therapeutic Range: 1.5-2.0 Mod-intensity Therapeutic Range: 2.0-3.0 High-intensity Therapeutic Range: 2.5-3.5 HIgh-intensity Therapeutic Range: 3.0-4.0 Common Critical/Alarm Value: 5.0 Common Upper Limit Reported: 10.0 Effective 08/30/2018: Please note methodology and/or reference ranges have changed. Performed By: #### P T #### [facility] [address] [facility] [address] PT Coag (PPP) [Time] 12.1 s Low 12.3-14.9 [facility] Comment on above: Result Comment: Effe ctive 08/30/18 Please note methodology and/or reference ranges have changed. Performed By: #### P T #### [facility] [address] [place] [address] Protime-INRon 11-04-2018 INR Coag (PPP) [Relative time] 0.9 {INR} [place] Comment on above: Warfarin Therapy IN R Therapeutic: 2.0-3.0 With Mechanical Valve: >2.5 Low-intensity Therapeutic Range: 1.5-2.0 Mod-intensity Therapeutic Range: 2.0-3.0 High-intensity Therapeutic Range: 2.5-3.5 HIgh-intensity Therapeutic Range: 3.0-4.0 Common Critical/Alarm Value: 5.0 Common Upper Limit Reported: 10.0 Effective 08/30/2018: Please note methodology and/or reference ranges have changed. Interpretation and review of laboratory results Abnormal [place] PT Coag (PPP) [Time] 12.1 s [place] Comment on above: Effective 08/30/18 Please note methodology and/or reference ranges have changed. Sedimentation Rateon 019 Sedimentation Rate 12 mm Normal 0-30 [facility] Comment on above: Performed By: #### E SR #### [facility] [address] [place] [address] Sed Rate 12 mm 0 - 30 mm [place] Vital Signs Date Time Vital Sign Value Performing Clinician Ivonne ledesma 12-22-2022 11:40-0400 Blood Pressure Location MIKAYLA WEISS [facility] 12-22-2022 11:40-0400 Diastolic blood pressure 84 mm[Hg] MIKAYLA WEISS [facility] 12-22-2022 11:40-0400 Systolic blood pressure 124 mm[Hg] MIKAYLA WEISS [facility] 08-06-2022 00:10-0400 Body temperature 97.3 [degF] MD Addy Daniels Work Phone: [facility] 08-06-2022 00:10-0400 Diastolic blood pressure 74 mm[Hg] MD Addy Daniels Work Phone: [facility] 08-06-2022 00:10-0400 Heart rate 80 /min MD Addy Daniels Work Phone: [facility] 08-06-2022 00:10-0400 Respiratory rate 18 /min MD Addy Daniels Work Phone: [facility] 08-06-2022 00:10-0400 SaO2% (BldA) [Mass fraction] 96 % MD Addy Daniels Work Phone: [facility] 08-06-2022 00:10-0400 Systolic blood pressure 177 mm[Hg] MD Addy Daniels Work Phone: [facility] 08-05-2022 19:51-0400 Body height 154.94 cm MD Addy Daniels Work Phone: [facility] 08-05-2022 19:51-0400 Body weight 67.6 kg MD Addy Daniels Work Phone: [facility] 11-20-2018 07:02-0400 Body Temperature 97 [degF] [facility] [place] 11-20-2018 07:02-0400 BP Diastolic 61 mm[Hg] [facility] [place] 11-20-2018 07:02-0400 BP Systolic 153 mm[Hg] [facility] [place] 11-20-2018 07:02-0400 Pulse (Heart Rate) 75 /min [facility] [place] 11-20-2018 07:02-0400 Pulse Oximetry 97 % [facility] [place] 11-20-2018 07:02-0400 Respiratory Rate 17 /min [facility] [place] 11-17-2018 05:54-0400 BMI (Body Mass Index) 27.62 kg/m2 [facility] [place] 11-17-2018 05:54-0400 Body weight 66.3 kg Mary Vega [facility] 11-15-2018 15:58-0400 Height 154.9 cm Mary Vega [facility] 11-05-2018 07:30-0400 BP Diastolic 57 mm[Hg] [facility] , [place] 11-05-2018 07:30-0400 BP Systolic 135 mm[Hg] [facility] [place] 11-05-2018 07:30-0400 Pulse (Heart Rate) 70 /min [facility] 11-05-2018 07:30-0400 Pulse Oximetry 97 % [facility] [place] 11-04-2018 20:06-0400 Body Temperature 98.4 [degF] [facility] 11-04-2018 20:06-0400 Respiratory Rate 16 /min [facility] 11-04-2018 14:56-0400 BMI (Body Mass Index) 27.4 kg/m2 [facility], [place] 11-04-2018 14:56-0400 Body weight 65.77 kg [facility] , [place] 11-04-2018 14:56-0400 Height 154.9 cm [facility] [place] Encounters Encounter Date Encounter Type Care Provider Facility Start: 06-29-2023 ambulatory MIKAYLA Mora ty:ERIN Hoang Start: 01-11-2023 End: 01-11-2023 ambulatory [facility] Start: 12-22-2022 End: 12-23-2022 ambulatory MIKAYLA WEISS Facility:ERIN Hoang Start: 12-22-2022 End: 12-22-2022 Patient encounter procedure MIKAYLA WEISS [facility] Start: 10-14-2022 End: 10-14-2022 ambulatory [facility] Start: 09-06-2022 End: 09-07-2022 ambulatory Raymond HARRISON Facility:ERIN Hoang Start: 08-11-2022 End: 08-12-2022 ambulatory Raymond HARRISON Facility:CD:[id number] Start: 08-10-2022 End: 08-11-2022 ambulatory Raymond HARRISON Facility:[facility] Start: 08-09-2022 End: 08-09-2022 ambulatory Addy Daniels Facility:[facility] Start: 08-09-2022 ambulatory MIKAYLA WEISS Facility :[facility] Start: 08-05-2022 End: 08-06-2022 Emergency department patient visit Camacho Saavedray Facility:[facility] Start: 08-05-2022 End: 08-06-2022 Emergency department patient visit MD Addy Daniels Work Phone: [facility] Work Phone: Start: 06-13-2022 End: 06-14-[address] ADDY DANIELS . Facility:[facility] Start: 05-19-[address] ADDY DANIELS . Facili ty:[facility] Start: 04-18-2022 End: 04-19-[address] VALERIE DARDEN Facility:[facility] Start: 04-04-2022 End: 04-04-2022 ambulatory [facility] Start: 01-30-[address] ADDY DANIELS . Facili ty:[facility] Start: 01-04-2022 End: 01-05-[address] ADDY DANIELS . Facility:[facility] Start: 12-26-2021 End: 12-29-2021 Evaluation and management of inpatient DR ADDY DANIELS . Facility:[facility] Start: 12-02-2021 End: 01-04-2022 Pre-admission assessment Alie Santos [facility] Start: 11-30-2021 End: 12-01-[address] JESUS BRUNO Facility:[facility] Start: 11-09-2021 End: 11-10-[address] CALISTA ACEVES Facility:[facility] Start: 08-06-2021 End: 08-07-[address] VALERIE DARDEN Facility:[facility] Start: 07-28-2021 End: 07-29-[address] CALISTA ACEVES Facility:[facility] Start: 06-22-2021 End: 06-22-2021 Patient encounter procedure VALERIE DARDEN [facility] Start: 11-15-2018 End: 11-20-2018 Evaluation and management of inpatient [facility] GARY [facility] Start: 11-15-2018 End: 11-20-2018 Evaluation and management of inpatient Mary Vega Work Phone: [facility] Comment on above: Spinal stenosis of l umbosacral region (Primary Dx); Impaired mobility; Vasovagal syncope Start: 11-13-2018 End: 11-15-2018 Evaluation and management of inpatient LENNY CORRAL [facility] Start: 11-13-2018 End: 11-15-2018 Patient encounter procedure LENNY Kang [facility] Start: 11-04-2018 End: 11-05-2018 Patient encounter procedure CALISTA KETAN [facility] Start: 11-04-2018 End: 11-05-2018 Emergency department patient visit Lenny Corral Work Phone: [facility] Comment on above: Lumbar radiculopathy (Primary Dx); Intractable low back pain Start: 04-19-2018 End: 04-20-2018 Patient encounter procedure DEFAULT PHYSICIAN Facility:[facility] Procedures Date [...] ICAL VTE PROPHYLAXIS CALISTA ACEVES Start: 11-15-2018 T RAIL TURNER EVAL AND TREAT CHRIS PRESLEY KETAN Start: [...] scan extracra nial art compl bi study [employer] Work Phone: Start: 11-15-2018 Culture bacterial quanttative colony count urine Mary Gary Work Phone: Start: 11-15-2018 Urinalysis microscopic only Mary Gary Work Phone: Start: 11-15-2018 Blood count complete auto&auto difrntl wbc CALISTA ACEVES Start: 11-15-2018 Culture bacterial bl ood aerobic w/id isolates CALISTA ACEVES Start: 11-15-2018 Microscopic examinat ion of blood, culture CALISTA ACEVES Comment on above: Performed By: #### P TT #### [facility] [address] [place] [address] Start: 11-15-2018 Urnls dip stick/tabl et [...] CT Abdomen and Pelvi s WO contrast [facility] Start: 08-05-2022 CT of abdomen and pe lvis without contrast CT abdomen pelvis wo con [facility] Start: 11-19-2019 Creatinine monitoring Creatinine mon [place] Start: 11-19-2019 Potassium monitoring Potassium monit [place] Start: 11-05-2019 Creatinine monitoring Creatinine [place] Start: 11-05-2019 Potassium monitoring Potassium monit [place] Start: 12-04-2018 End: 12-04-2018 Office Visit 12/04/2018 Office Visit Neurosurgery Lenny Corral MD [facility], [address] [address] [facility] Start: 11-30-2018 End: 11-30-2018 Office Visit 11/30/2018 Office Visit Neurosurgery Lenny Corral MD [facility], [address] [address] [facility] Start: 11-23-2018 End: 11-23-2018 Office Visit 11/23/2018 Office Visit Neurosurgery Lenny Corral MD [facility], [address] [address] [employer] Start: 11-13-2018 Annual Wellness Visi t (AWV) Annual Wellness Visit (AWV) [place] Start: 10-21-2018 Influenza vaccination Flu vaccine (# 1) [place] Start: 2001 DEXA (modify frequen cy per FRAX score) DEXA (modify frequency per FRAX score) [place] Start: 2001 Pneumococcal 65+ yea rs Vaccine (1 of 2 - PCV13) Pneumococcal 65+ years Vaccine (1 of 2 - PCV13) [place] Start: 1986 Shingles Vaccine (1 of 2) Shingles Vaccine (1 of 2) [place] Start: 11-13-1955 DTaP/Tdap/Td vaccine (1 - Tdap) DTaP/Tdap/Td vaccine (1 - Tdap) [place] Start: 1946 Lipid screen Lipid screen [place], [place] Culture Blood #1 Culture Blood # 1 Microbiology STAT 11/15/2018 4:37 PM EDT [place] Culture Blood #2 Culture Blood # 2 Microbiology STAT 11/15/2018 4:37 PM EDT [place] End: 11-05-2018 EKG 12 Lead EKG 12 Lead ECG Routine One Time for 1 Occurrences starting 11/05/2018 until 11/05/2018 [place] Comment on above: One Time for 1 Occur rences starting 11/05/2018 until 11/05/2018 Incentive spirometry Incentive s pirometry Respiratory Care Routine Every 2hr while awake until discontinued starting 11/15/2018 [place] Comment on above: Every 2hr while awak e until discontinued starting 11/15/2018 Initiate Oxygen Ther apy Protocol Initiate Oxygen Therapy Protocol Respiratory Care Routine Daily until discontinued starting 11/15/2018 [place] Comment on above: Daily until disconti nued starting 11/15/2018 Nonrebreather mask oxygen Nonrebreather mask oxygen Respiratory Care Routine As directed - RT (PRN) until discontinued starting 11/05/2018 [place] Comment on above: As directed - RT (HI N) until discontinued starting 11/05/2018 Patient Education Kidney Stones (DC) [facility] Work Phone: Patient referral [facility] Work Phone: End: 11-15-2018 Speech and language therapy regime Speech language pathology evaluation T RAIL TURNER Routine One Time for 1 Occurrences starting 11/15/2018 until 11/15/2018 [place] Comment on above: One Time for 1 Occur rences starting 11/15/2018 until 11/15/2018 End: 11-04-2018 Urine Reflex to Culture Urine Reflex to Culture Lab STAT One Time for 1 Occurrences starting 11/04/2018 until 11/04/2018 [place] Comment on above: One Time for 1 Occur rences starting 11/04/2018 until 11/04/2018 Immunizations Immunization Date Immunization Notes Care Provider Laxmi romero 12-20-2021 influenza virus vaccine, unspecified formulation MIKAYLA ABDULLAHI [facility] 12-21-2020 influenza virus vaccine, unspecified formulation MIKAYLA ABDULLAHI [facility] 01-09-2019 influenza virus vaccine, unspecified formulation MIKAYLA ABDULLAHI [facility] 11-29-2017 influenza virus vaccine, unspecified formulation MIKAYLA ABDULLAHI [facility] 01-02-2017 influenza virus vaccine, unspecified formulation MIKAYLA ABDULLAHI [facility] 12-06-2016 influenza virus vaccine, unspecified formulation MIKAYLA ABDULLAHI [facility] 12-11-2014 influenza virus vaccine, unspecified formulation MIKAYLA ABDULLAHI [facility] Payers Date Payer Category Payer Self-pay [id number] 2021 Unknown [id number] 2018 Medicare MEDICARE MEDICAR E PART A AND B xxxxxxxxxxx 2018-Present [phone] [place] [address] xxxxxxxxxxx [id number] 2014 Medicare [id number] 2014 Medicare MEDICARE MEDICAR E PART A AND B xxxxxxxxxx 2014-Present [phone] [address] [place] [address] xxxxxxxxxx [id number] [id number] 2014 Unknown [id number] 2014 Unknown 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 [address] xxxxxxxxxxxx 2014-Present [phone] [address] [place] [address] xxxxxxxxxxxx [id number] .[id number] 1959 Medicare [id number] 1959 Self-pay [id number] 1959 Unknown [id number] 1936 Unknown [id number] 2.16.840.1.223579.3.579.2.647 1936 Unknown [id number] 2.16.840.1.160811.3.579.2.182 1936 Unknown [id number] 2.16.840.1.604677.3.579.2.182 1936 Unknown [id number] 2.16.840.1.042704.3.579.2.182 1936 Unknown [id number] 2.16.840.1.515102.3.579.2.182 1936 Unknown [id number] 2.16.840.1.712935.3.579.2.593 1936 Unknown [id number] 2.16.840.1.014265.3.579.2.593 1936 Unknown [id number] 2.16.840.1.140570.3.579.2.593 1936 Unknown [id number] 2.16.840.1.598652.3.579.2.593 1936 Unknown [id number] 2.16.840.1.029039.3.579.2.593 1936 Unknown [id number] 2.16.840.1.713474.3.579.2.593 1936 Unknown [id number] 2.16.840.1.773397.3.579.2.593 1936 Unknown [id number] 2.16.840.1.721086.3.579.2.593 1936 Unknown [id number] 2.16.840.1.584759.3.579.2.593 1936 Unknown [id number] 2.16.840.1.509391.3.579.2.593 1936 Unknown [id number] 2.16.840.1.940691.3.579.2.727 1936 Unknown [id number] 2.16.840.1.629019.3.579.2.727 1936 Unknown [id number] 2.16.840.1.340582.3.579.2.727 1936 Unknown [id number] 2.16.840.1.891232.3.579.2.727 1936 Unknown [id number] 2.16.840.1.815750.3.579.2.727 1936 Unknown [id number] 2.16.840.1.365856.3.579.2.727 Unknown Unknown [id number] 2.16.840.1.872112.3.579.2.531 Unknown [id number] 2.16.840.1.960888.3.579.2.531 Social History Date Type Detail Facility Start: 11-04-2018 End: 12-22-2022 Tobacco smoking status NHIS Never smoker [facility] Natalya Start: 11-04-2018 End: 11-19-2018 Alcohol intake Not Currently [place] Sex Assigned At Not on file [place] Tobacco smoking status No Smokin g Status Entered [facility] Start: 1935 Sex Assigned At Female F [facility] Tobacco smoking status Never [facility] Medical Equipment Procedure Code Equipment Code Equipment Origin al Text Equipment Identifier Dates Graft Canc Chip 30cc [id number] - [id number] Start: 11-13-2018 Graft Canc Chip [id number] 15cc - [id number] Start: 11-13-2018 Sys Fix Reline 0 x Conn 40 50mm 5.5lp Adj [id number] Start: 11-13-2018 Jose Armando-Graft Infuse Kt Med [id number] Start: 11-13-2018 Impl Spine Cage Kamila Crv [id number] 8deg [id number] Start: 11-13-2018 Impl Spine Cage Kamila Crv [id number] 8deg [id number] Start: 11-13-2018 Screw Polyaxial Reline O 2s 6.0x55mm [id number] Start: 11-13-2018 Screw Lk Reline Opn Tulip 5.5mm [id number] Start: 11-13-2018 Impl Spine Harish Reline-O Lrdtc 5.5x70mm [id number] Start: 11-13-2018 Impl Spine Harish Reline-O 5.5x75mm [id number] Start: 11-13-2018 Functional Status Date Assessment Result Facility 12-22-2022 Functional Status N/A [facility] Clinical Notes 04-04-2022 to 01-11-2023 Note Date & Type Note Facility 01-11-2023 Note Noted 7 beat run of NSVT on 1 week holter monitor, along with SVT, PVCs Recommended to continue coreg 25 mg bid, will place 30 day monitor, and obtain treadmill cardiolite stress test for ischemic evaluation. [facility] 01-11-2023 Note Pt reports that she has had 5 syncopal episodes since this Summer- some while having a BM, and other episodes while just up and walking. [facility] 01-11-2023 Note Will monitor with ro utine echocardiogram annually unless pt has concerning symptoms [facility] 01-11-2023 Note Recommended to gorge nue ASA and pravastatin [facility] 01-11-2023 Note Hypertension is stab le Reviewed B/P log and typically in the mornings her b/p with well controlled 120's/70-80, and in the evenings can be up to 140/80 Continue all meds and will add toprol [facility] 01-11-2023 Note Continue pravastatin [facility] 01-11-2023 Note Will monitor with ro utine echocardiogram annually unless pt has concerning symptoms [facility] 01-11-2023 Note Will monitor with ro utine echocardiogram annually unless pt has concerning symptoms [facility] 01-11-2023 Note Patient here for 3 [...] All other systems reviewed and are negative. [facility] 01-11-2023 Note UTP CARDIOLOGY PROGR ESS [...] called and was evaluated in ED at [facility]. Admits she has had a couple syncopal episodes in the bathroom while having a BM- last one was at [email or web address]. States she also has had a couple while just up and walking- normal Day to Day activity. Daughter states that pt is usually out for about 1 minute. Of note patient was direct admitted to the [facility] end of August for electrolyte imbalances low sodium, low potassium, and acute anemia. She was evaluated at [facility] in October for ABD pain/ syncope, [...] The patient states she was shopping in [employer] when she felt the need to have [...] a colonoscopy approximately 5 years ago at [facility]. HPI - Altered Mental Status General Chief [...] was someone in the bathroom in the caodaism and she have to go back and [...] 3 levothyroxine (Syn (more content not included)... [facility] 12-22-2022 Hospital Discharge instructions Patient Education [...] transplant. Follow these instructions at home: Take kspt-kun-jpovbid and prescription medicines only as told by [...] provider. Document Revised: 05/26/2020 Document Reviewed: 05/26/2020 [employer] Patient Education 2022 [employer]. Follow Up Care 09/06/2022 13:10:43 With:ABDULLAHI NOONAN, MIKAYLA Pereira, URL Address: [address] [place] [address] [phone] When: Unknown Comments:6 mos w/ renal fxn (per PCP) [facility] 10-25-2022 Note Pt message/ call [...] to call for appointment Lesly Alaniz TRAFFIC ENGINEER Division of Cardiology, [facility]- [phone] Pager- [phone] Email- [email or web address] 10-14-2022 Note Stable and non pitting currently [facility] 10-14-2022 Note Currently stable Pt to call for any recurrent syncope or concerns [facility] 10-14-2022 Note Mild on recent echo No concerning symptoms [facility] 10-14-2022 Note Continue ASA and statin [facility] 10-14-2022 Note Hypertension is unco ntrolled 160/75- admits this is where her b/p is at home Increase coreg to 25 mg bid, continue losartan 100 mg, hydrochlorothiazide 25 mg, and amlodipine 10 mg [facility] 10-14-2022 Note Continue pravastatin [facility] 10-14-2022 Note No concerning sympto ms Will continue to monitor with echocardiogram [facility] 10-14-2022 Note No concerning sympto ms Will continue to monitor with echocardiogram [facility] 10-14-2022 Note Patient here c/o LE edema. Says today they aren't as bad, but she states they're hard and sometimes painful. She has not had lab work since [facility] stay in July 2022. She denies chest pain, lightheadedness, and palpitations. Review of Systems Cardiovascular: Positive for dyspnea on exertion and leg swelling. Hematologic/Lymphatic: Bruises/bleeds easily. All other systems reviewed and are negative. [facility] 10-14-2022 Note UTP CARDIOLOGY PROGR ESS [...] note patient was direct admitted to the [facility] end of August for electrolyte imbalances [...] and non pitting currently RTC 3-6 months [facility] 04-04-2022 Note [facility] Cardiology Clinic Note Chief Complaint: [...] p.o. twice dominic (more content not included)... [facility] Evaluation + Plan note No data available for this section [facility] Evaluation + Plan note Future Appointments Appointment Date:06/29/2023 09:30:00 AM Scheduled Provider:MIKAYLA WEISS PA-C Location:[facility] Appointment Type:URO Office Visit [facility] Evaluation note No assessment inform ation available [facility] Work Phone: Hospital Discharge instructions No data available for this section [facility] Hospital Discharge instructions Additional Instructions Take Naprosyn [...] fevers or chills or intractable nausea vomiting. [facility] Work Phone: Progress note No data available for this section [facility] Summary Purpose Family History No Family History Records FoundNo Family History Records FoundNo Family History Records FoundNo Family History Records Found No data available for this section No Family History Records FoundNo Family History Records Found Advance Directives No Advanced Directives Records FoundDocuments on File Type Date Recorded Patient Manager Of Engineering Expl anation Advance Directives and Living Will Power of Pressing Department Supervisor Latest Code Status on File Code Status Date Activated Date Inactivated Comments Full Code 11/05/2018 6:34 PM Full Code 11/04/2018 5:08 PM 11/05/2018 6:34 PM Documents on File Type Date Recorded Patient Manager Of Engineering Expl anation Advance Directives and Livin g Will Advance Directives and Livin g Will 11/06/2018 1:08 AM AD info sheets Power of Pressing Department Supervisor Latest Code Status on File Code Status [...] sent through Care Everywhere. * Back Pain (Georgian) documented in this encounter* Discharge Instr - [...] most local grocery stores, pharmacies, and chain [email or web address]-stores. ? If you have any questions about [...] Contact Information Primary Emergency Contact: Andrea Madrid [facility] Mobile Relation: Spouse Secondary Emergency Contact: Liliya Townsend Mobile Relation: Child Inventory Control Analyst needed? No Past Surgical History: Past Surgical History: Procedure Laterality Date APPENDECTOMY BACK SURGERY CHOLECYSTECTOMY LUMBAR FUSION N/A 11/13/2018 PLIF L 3-4-5 DECOMPRESSION L3, L4 performed by Lenny Corral MD at [facility] Right Immunization History: There is no [...] Assisted Dressing Independent Toileting Independent Feeding Independent Corporate Executive Independent Med Delivery whole Wound Care Documentation [...] Video (Video Swallowing Test): {Done Not Done Date:[id number]} Treatments at the Time of Hospital Discharge: Respiratory Treatments: Oxygen Therapy: is not on home oxygen therapy. Ventilator: - No ventilator support Rehab Therapies: Physical Therapy and Occupational Therapy Weight Bearing Status/Restrictions: No weight bearing restirctions Other Medical Equipment (for information only, NOT a DME order): walker Other Treatments: Patient's personal belongings (please select all that are sent with patient): {[facility] Belongings:[id number]} RN SIGNATURE: MANAGEMENT/SOCIAL WORK SECTION Inpatient Status Date: Patient was admitted to Inpatient Acute Rehab 11/15/18 Readmission Risk Assessment Score: Readmission Risk Risk of Unplanned Readmission: 12 Discharging to Facility/ Agency Name: Karan Sosa Address: Fax: Dialysis Facility (if applicable) Name: Address: Dialysis Schedule: Phone: Fax: [employer] Building Supervisor signature: ICIAN SECTION Prognosis: Good Condition [...] Date: 11/20/2018 Patient Name: Hiram Madrid Account: [id number] : 1935 (83 y.o.) Room: [place] [address] Diagnosis: Impaired mobility and gait secondary to [...] L4 performed by Lenny Corral MD at [facility] Right Precautions: Restrictions/Precautions: [...] to increasing pain) Transfer Assistance: Independent [employer] Supervisor: Yes Mode of Transportation: Car 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 Leisure & Hobbies: Cooking, reading, needlepoint Additional Comments: 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, has been relying more on dtr and spouse due toworsening weakness past few weeks Current Functional Status: ADL Equipment Provided: Sock aid, Card Filer Feeding: Modified independent Grooming: Independent UE Bathing: [...] glasses for reading Hearing Hearing: Exceptions to [facility] Hearing Exceptions: Hard of hearing/hearing concerns, [...] PM Yarely Gordon 11/20/2018 12:35 PM EDT [facility] MUSIC THERAPY Date: 11/20/2018 Patient Name: Hiram Madrid Date of : 1935 (83 y.o.) Gender: female Diagnosis: Impaired mobility and gait secondary to NTSCI secondary to lumbar stenosis, radiculopathy, and spondylosis Referring Practitioner: Dr. Coker RESTRICTIONS/PRECAUTIONS: Restrictions/Precautions: Fall Risk Vision: Impaired Hearing: Exceptions to [facility] Hearing Exceptions: Hard of hearing/hearing concerns, [...] interested in having music therapy again. [] [facility] will attempt to see pt again another day, if time allows. [x] Pt's planned d/c date is before [facility] is scheduled on unit again. [] Pt NOT interested in having music therapy again. [facility] 11/20/2018 * Roselyn Schroeder OTA - 11/20/2018 9:59 AM EDT Occupational Therapy Facility/Department: [facility] Daily Treatment Note NAME: Hiram Madrid [...] 11/20/2018 9:55 AM EDT Occupational Therapy Facility/Department: [facility] Daily Treatment Note NAME: Hiram Madrid [...] device (slide rail) Walk: 6 - Modified [place] Walks at least 150 feet with an ambulatory device, orthosis or prosthesis OR requires extra amount of time OR there is concern for safety Distance Walked: 200' Wheel Chair: 0 - Activity Not Assessed/Does Not Occur Stairs: 6 - Modified [place] Safely goes up and down at least [...] from Dr. Ellis Holguin D.O., PM&R Attending [phone] [facility] [place] * Khanh White LPN - 11/19/2018 6:00 [...] 11/19/2018 2:05 PM EDT Occupational Therapy Facility/Department: [facility] Daily Treatment Note NAME: Hiram Madrid [...] EDT Physical Therapy Rehab Treatment Note Facility/Department: [facility] Room: [place] [address] NAME: Hiram Madrid : 1935 (83 y.o.) [...] EDT Progress Note Patient: Hiram Madrid Unit/Bed: [place] [address] Date of : 1935 Acct: [id number] Admitting Diagnosis: Impaired mobility [Z74.09] Spinal stenosis [...] and tentative discharge home tomorrow. Follows with building construction estimator in [place]. 11/18/18: called by medical staff manager regarding tachycardia. Pt was unaware of tachycardia. [...] IA, CHF or arrhythmia. Follows with a building construction estimator from [place] for carotid artery disease and cardiac murmur. [...] to DC home and F/U with regular building construction estimator as outpatient Attending Supervising Physician's Attestation Statement The patient is a 83 y.o. female. I have performed a history and physical examination of the patient. I discussed the case with the physician life enrichment assistant. I reviewed the patient's Past Medical [...] EDT Physical Therapy Rehab Treatment Note Facility/Department: [facility] Room: [place] [address]- NAME: Hiram Madrid : 1935 (83 y.o.) [...] EDT Physical Therapy Rehab Treatment Note Facility/Department: [facility]: Hiram Madrid : 1935 (83 [...] Neuromuscular Education Neuromuscular Comments: Pizano Initiated: other ROCKET SCIENTIST finished it: pt scored a 42/56. Bed [...] education: 10 Therapeutic ex: 0 Mikayla Lindsey, ROCKET SCIENTIST, 11/19/18 at 11:59 AM * Khanh White [...] Unit/Bed: R238/R238-01 Date of : 1935 Acct: [id number] Admitting Diagnosis: Impaired mobility [Z74.09] Spinal stenosis of lumbosacral region [M48.07] Admit Date: 11/15/2018 Hospital Day: 4 Current Medications: Scheduled Meds: cephALEXin 500 mg Oral 3 times per day oxwigyel-hgopyaohls-yikuowyxk Topical BID enoxaparin 30 mg Subcutaneous Daily [...] her back continue with Keflex * Mary eVga MD - 11/18/2018 7:37 PM EDT Subjective: [...] woman from homewith spouse who presents to [facility] with the above deficits which impact [...] ms QTc Calculation (Bazett) 463 ms P [place] 58 degrees R [place]aan -11 degrees T [place] 5 degrees Xr Chest Standard (2 Vw) [...] from Dr. Ellis Holguin D.O., PM&R Attending [address] [place] [address] * Rachael Graf LPN - 11/18/2018 4:39 [...] and no guarding. Musculoskeletal: Back: Urine Culture [[id number]] Collected: 11/15/18 190 Order Status: Completed Specimen: Urine, clean catch Updated: 11/17/18 0728 Urine Culture, Routine No growth 24 hours Narrative: ORDERED BY: ADDY COKER SOURCE: Urine Clean Catch COLLECTED: 11/15/18 19:05 ANTIBIOTICS AT DI.: RECEIVED : 11/15/18 19:05 Culture Blood #2 [[id number]] Collected: 11/15/18 1637 Order Status: Completed Specimen: Blood Updated: 11/16/18 1815 Culture, Blood 2 No Growth to date. Any change in status will be called. Narrative: ORDERED BY: ADDY COKER SOURCE: Blood COLLECTED: 11/15/18 16:37 ANTIBIOTICS AT DI.: RECEIVED : 11/15/18 16:42 Culture Blood #1 [[id number]] Collected: 11/15/18 1637 Order Status: Completed Specimen: [...] Unit/Bed: R238/R238-01 Date of : 1935 Acct: [id number] Admitting Diagnosis: Impaired mobility [Z74.09] Spinal stenosis [...] L4 performed by Lenny Corral MD at [facility] Right History reviewed. No pertinent family [...] on phone: None Gets together: None Attends religion service: None Active member of club or organization: None Attends meetings of clubs or organizations: None Relationship status: None Intimate partner violence: Fear of current or ex partner: None Emotionally abused: None Physically abused: None Forced sexual activity: None Other Topics Concern None Social History Narrative None Subjective/HPI: called by medical staff manager regarding tachycardia. Pt was unaware of tachycardia. [...] woman from homewith spouse who presents to [facility] with the above deficits which impact [...] up labs. Blanca Holguin D.O., PM&R Attending [phone] [place] [address] [place] * Dana Craig, JANET - 11/17/2018 5:45 PM EDT Monitor room called, said pt had about 18 sec run of svt up to 218; notified cardio. * Faye Summers PTA - 11/17/2018 4:07 PM EDT Physical Therapy Rehab Treatment Note Facility/Department: [facility]: Hiram Madrid : 1935 (83 [...] 11/17/2018 2:51 PM EDT Occupational Therapy Facility/Department: [facility] Daily Treatment Note NAME: Hiram Madrid [...] EDT Physical Therapy Rehab Treatment Note Facility/Department: [facility] Room: R238/R238-01 NAME: Hiram Madrid : [...] EDT Physical Therapy Rehab Treatment Note Facility/Department: [facility]: Hiram Madrid : 1935 (83 [...] 11/17/2018 8:43 AM EDT Occupational Therapy Facility/Department: [facility] Daily Treatment Note NAME: Hiram Madrid [...] at below status. ADL Equipment Provided: Sock aid;Card Filer Grooming: Independent UE Bathing: Setup LE Bathing: [...] woman from homewith spouse who presents to [facility] with the above deficits which impact [...] consult,check dopplers Blanca Holguin D.O., PM&R Attending [phone] [facility] [place] * Jessica Irvin, OTR/L - 11/16/2018 4:14 PM EDT Occupational Therapy Facility/Department: [facility] Daily Treatment Note NAME: Hiram Madrid : 1935 Date of Service: 11/16/2018 Discharge Recommendations: Continue to assess pending progress OT Equipment Recommendations Other: Continue to assess Assessment Performance deficits / Impairments: Decreased functional mobility ;Decreased ADL status;Decreased strength;Decreased balance;Decreased endurance;Decreased high- level IADLs Assessment: Pt. is an 83 year old woman from home with spouse who presents to [facility] with the above deficits which impact [...] Pain: Yes Objective The patient completed the [facility] Mental Status (UMS) Examination on this date, [...] Unit/Bed: R238/R238-01 Date of : 1935 Acct: [id number] Admitting Diagnosis: Impaired mobility [Z74.09] Spinal stenosis of lumbosacral region [M48.07] Admit Date: 11/15/2018 Hospital Day: 1 Current Medications: Scheduled Meds: [START ON 11/17/2018] enoxaparin 40 mg Subcutaneous Daily [id number] Topical BID docusate sodium 100 mg Oral [...] IA, CHF or arrhythmia. Follows with a building construction estimator from [place] for carotid artery disease and cardiac murmur. [...] L4 performed by Lenny Corral MD at [facility] Right Social History [...] on phone: None Gets together: None Attends religion service: None Active member of club or [...] mg 100 mg Oral Daily Shyla Vizcaino, MAGNET PLACER - COMMUNITY RESOURCE OFFICER oxyCODONE-acetaminophen (PERCOCET) 5-325 MG per tablet 1 tablet 1 tablet Oral Q4H PRN Shylapresley Vizcaino, MAGNET PLACER - COMMUNITY RESOURCE OFFICER potassium chloride (KLOR-CON) packet 20 mEq 20 mEq Oral BID Shyla Renato Vizcaino, MAGNET PLACER - COMMUNITY RESOURCE OFFICER pravastatin (PRAVACHOL) tablet 80 mg 80 mg Oral Daily Shyla Renato Vizcaino, MAGNET PLACER - COMMUNITY RESOURCE OFFICER polyethylene glycol (GLYCOLAX) packet 17 g 17 [...] EDT Physical Therapy Rehab Treatment Note Facility/Department: [facility] Room: [facility] NAME: Hiram Madrid : 1935 (83 [...] education: 0 Therapeutic ex: 23 Mikayla Lindsey ROCKET SCIENTIST, 11/16/18 at 3:57 PM * Rhiannon Blank [...] from home with spouse who presents to [facility] with the above deficits which impact [...] to increasing pain) Transfer Assistance: Independent Active Automotive Fleet Supervisor: Yes Mode of Transportation: Car Type of [...] OTR/L Jessica Irvin OTR/Lloyd * Jena Vega, ROCKET SCIENTIST - 11/16/2018 10:35 AM EDT Physical Therapy Rehab Treatment Note Facility/Department: [facility] Room: [place] [address] NAME: Hiram Madrid : 1935 (83 y.o.) [...] 11/16/18 at 11:10 AM * Jessenia Gordon, CRAPS MANAGER - 11/16/2018 9:35 AM EDT [facility] Rehabilitation RECREATIONAL THERAPY Initial Evaluation [...] hearing in left ear) Patient seen at: [phone] Recreation Therapist received referral, chart reviewed and [...] her flower bed. Past leisure interests: Walking, caodaism, had pets Future leisure interests: Emotional Observed/noted: [...] PT - 11/16/2018 8:20 AM EDT Facility/Department: [facility] Rehabilitation Initial Assessment: [facility] NAME: Hiram Madrid : 1935 Date [...] L4 performed by Lenny Corral MD at [facility] Right Chart Reviewed: Yes Patient assessed [...] to increasing pain) Transfer Assistance: Independent Active Automotive Fleet Supervisor: Yes Additional Comments: 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, [...] side to side to initiate log roll residential goals 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 1: pt to be indep with bed mobility residential goal 2: pt to be indep with bed transfers 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 3: pt to [id number] ft with supervision 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 4: pt to navigate 4 steps with SBA 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 5: 30/56 for [place] balance testing ELOS: Plan weeks: 2 Therapy Time: Individual Time In 1000 Time Out 1030 Minutes 30 Lakisha Trevino, PT, 11/16/18 at 12:00 PM * Marybel Ackerman, [facility] - 11/15/2018 11:29 PM EDT Tashia [...] puffs by inhalation with spacer [] Ipratropium Josephine 0.02% unit dose by aerosol Ipratropium Josephine MDI 2 puffs by inhalation with spacer [] Duoneb (Ipratropium + Albuterol) unit dose by aerosol Ipratropium MDI + Albuterol MDI 2 puffs byinhalation w/spacer MDI to Aerosol [] Albuterol Sulfate MDI Albuterol Sulfate 0.083% unit dose by aerosol [] Levalbuterol MDI 2 puffs by inhalation Levalbuterol 1.25 mg unit dose by aerosol [] Ipratropium Josephine MDI by inhalation Ipratropium Josephine 0.02% unit dose by aerosol [] Combivent (Ipratropium + Albuterol) MDI by inhalation Duoneb (Ipratropium + Albuterol) unit doseby aerosol Treatment Assessment [Frequency/Schedule]: Change frequency to: ACCUNEB Q4 PRN per Protocol, P&T, [facility] Points 0 1 2 3 4 [...] of lumbosacral region Impaired mobility Vasovagal syncope [facility] [place] [facility] [address] [place] [address] Chief Complaint and Reason for Visit Chief Complaint SYNCOPE Additional Source Comments INFORMATION SOURCE (unrecogn ized section and content) DATE CREATED AUTHOR 04/20/2018 [facility] DATE CREATED AUTHOR AUTHOR'S ORGANIZ ATION 11/24/2018 [facility] DATE CREATED AUTHOR AUTHOR'S ORGANIZ ATION 06/14/2022 [facility] DATE CREATED AUTHOR AUTHOR'S ORGANIZ ATION 08/21/2022 [facility] DATE CREATED AUTHOR AUTHOR'S ORGANIZ ATION 12/23/2022 [facility] DATE CREATED AUTHOR AUTHOR'S ORGANIZ ATION 01/13/2023 [facility] Reason for Visit (unrecogniz ed section and content) Reason Comments Back Pain Left low back pain r adiates down left leg. Pain flared up last monday Status Reason Specialty Diagnoses / Procedures Referre d By Contact Referred To Contact Diagnoses Intractable back pain Lenny Corral MD [address], [address] [place] [address] [facility] Patient Care team informatio n (unrecognized [...] ON THE PRIMARY CLINICAL RECORDS. [facility] [employer] [facility]. provides no warranty or guarantee of the accuracy or completeness of information in this document.
--- NOTE | 2023-03-28 10:03 | P.HP_ITS ---
H&P: HPI History of Present Illness Chief complaint: NAUSEA/HYPERTENSION Narrative: Patient presented to the emergency room with increasing unsteady gait. No fall this time but she has fallen in the past. Evaluation in the workup in the emergency room found patient have severe hyponatremia with neurological sy mptoms. Patient was admitted for intensive treatment Review of Systems ROS Status of ROS 10 or more systems reviewed and unremark able except as noted in history and below PFS PFS Medical History Surgical History Family History Mother Family history of CHF (congestive heart failure) Father Lupus Brother Family history of myocardial infarction Family history of stroke Other Arthritis Family history of hypertension Social History Within the past year, how often did you have a drink containing alcohol: never Score interpretation: A score less than 3 is consistent with normal alcohol consumption. 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 Highest level of school completed/degree received: 9th grade Are you now , , , , never or living with a partner: In a typical week, how many times do you talk on the telephone with family, friends, or neighbors: 3 or more times per week How often do you get together with friends or relatives: 3 or more times per week How often do you attend pentecostalism or church services: 4 or more times per year Do you belong to any clubs or organizations such as pentecostalism groups unions, fraternal or athletic groups, or school groups: yes Total score: 3 Score interpretation: A score of greater than or equal to 2 indicates the lowest level of social isolation. Little interest or pleasure in doing things: not at all Feeling down, depressed, or hopeless: not at all Feel stressed/tense/nervous/anxious/difficulty sleeping: not at all Life stressors: recent of family or friend Do you think of yourself as: straight/heterosexual Gender Identity: female Meds Home Medications and Allergies Home Medications Medication Instructions Recorded Confirmed Type amlodipine 10 mg tablet 10 mg PO QDAY 08/10/22 03/28/23 History levothyroxine 88 mcg tablet 88 mcg PO QDAY 08/10/22 03/28/23 History losartan 100 mg tablet 100 mg PO QDAY 08/10/22 03/28/23 History potassium chloride 20 mEq 20 meq PO TID 08/10/22 03/28/23 History tablet,extended release pravastatin 80 mg tablet 80 mg PO QDAY 08/10/22 03/28/23 History pantoprazole 40 mg tablet,delayed 40 mg PO DAILY #30 tabs 08/17/22 03/28/23 Rx release (Protonix) carvedilol 25 mg tablet 25 mg PO Q12H 02/10/23 03/28/23 History magnesium oxide 400 mg (241.3 mg 400 mg PO BID PRN constipation 02/10/23 03/28/23 History magnesium) tablet hydrochlorothiazide 25 mg tablet 25 mg PO DAILY 03/28/23 03/28/23 History Allergies Allergy/AdvReac Type Severity Reaction Status Date / Time atorvastatin Allergy Severe HIVES Verified 03/28/23 05:53 prednisone Allergy Severe Rash Verified 03/28/23 05:53 Exam Constitutional Vital Signs, click to edit/add: Last Vital Signs Temp 98.2 F 03/28/23 05:49 Pulse 70 03/28/23 08:30 Resp 20 03/28/23 08:30 BP 157/61 H 03/28/23 08:30 Pulse Ox 94 L 03/28/23 08:30 O2 Del Method Room Air 03/28/23 05:49 Documenting provider has reviewed patient's vital signs: yes Common normals: no apparent distress [facility] Common normals: normocephalic and moist oral mucous membranes Chest Common normals: inspection of chest normal and palpation of chest normal Respiratory Common normals: normal respiratory effort Cardio Common normals: regular rate and regular rhythm GI Common normals: Normal to inspection, nondistended, normoactive bowel sounds present Extremity Common normals: normal to inspection (No edema) Neuro Common normals: oriented x3, CN's II-XII intact bilaterally and moves all extremities (For gait with ambulation-unsteady) Results Labs Labs: Short CBC 03/28/23 Range/Units 05:55 WBC 12.3 H (4.0-11.0) 10^3/uL Hgb 13.8 (12.0-16.0) g/dL Hct 38.9 (36.0-48.0) % Plt Count 440 (150-450) 10^3/uL BMP 03/28/23 05:55 Sodium 123 L* Potassium 3.0 L Chloride 86 L Carbon Dioxide 27.0 BUN 9.0 Creatinine 0.78 Glucose 140 H Calcium 9.4 Liver Function 03/28/23 Range/Units 05:55 Total Bilirubin 0.9 (0.2-1.0) mg/dL AST 17 (15-37) U/L ALT 22 (14-59) U/L Alkaline Phosphatase 77 (46-116) U/L Albumin 3.7 (3.4-5.0) g/dL Urine 03/28/23 Range/Units 07:30 Urine Color Lt. yellow (YELLOW) Urine Clarity Clear (CLEAR) Urine pH 7.5 (5.0-9.0) Ur Specific [place] 1.010 (1.005-1.025) Urine Protein Negative (NEG/TRACE) mg/dL Urine Glucose (UA) Negative (NEGATIVE) mg/dL Assessment and Plan Assessment and Plan (1) Acute hyponatremia: Assessment and Plan: This is likely secondary to water intoxication from the description from the patient. With neurological changes will institute 3% saline, 500 cc over 10 hours. This has been very effective for her in the past. Check urine sodium (2) Hypokalemia: Assessment and Plan: Supplement (3) Hypomagnesemia: Assessment and Plan: Supplement (4) Hypertension: Assessment and Plan: Need pain home medications (5) Atrial fibrillation: Assessment and Plan: Rate controlled with Plan Patient has had rapid improvement over the course of 24 hours in the past with 3% saline. Will institute that. Maintain observation status physical therapy to work with patient on ambulation. If improved tomorrow and ambulating safely possible discharge
[2023-03-28] MEDS: SODIUM CHLORIDE 3 % 500 ML 50 ML IV (10:58)
[2023-03-28] MEDS: AMLODIPINE BESYLATE 5 MG TABLET 10 MG PO (11:00)
[2023-03-28] MEDS: LOSARTAN POTASSIUM 50 MG TABLET 100 MG PO (11:00)
[2023-03-28] MEDS: OMEPRAZOLE 40 MG CAPSULE.DR PO (11:01)
[2023-03-28] MEDS: MAGNESIUM OXIDE 400 MG TABLET PO ×2 (11:01→21:01)
[2023-03-28] MEDS: HYDROCHLOROTHIAZIDE 25 MG TABLET PO (11:01)
[2023-03-28] MEDS: CARVEDILOL 25 MG TABLET PO ×2 (11:01→21:01)
[2023-03-28] MEDS: POTASSIUM CHLORIDE 40 MEQ in 0.9 % SODIUM CHLORIDE 250 ML 67.5 MEQ IV (11:38)
--- NOTE | 2023-03-28 12:33 | SWNOTE1 ---
SW was in hallway and aide was in room with pt, she requested she needed a nurse. SW went in and pt was on the bedside commode and was pale looking and not answering questions. Several nurses came in room to assist. Pt placed back in bed and became oriented and able to tell -date and where she was.
[2023-03-28 12:58] LABS: Sodium Urine Random 50 mmol/L (30-90)
--- NOTE | 2023-03-28 13:01 | ECG_ITS ---
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
[2023-03-28] MEDS: CITALOPRAM HYDROBROMIDE 20 MG TABLET PO (13:59)
[2023-03-28] MEDS: POTASSIUM CHLORIDE 10 MEQ ER TABLET 20 MEQ PO ×2 (13:59→21:01)
--- NOTE | 2023-03-28 15:32 | ECG_ITS ---
[facility] Test Date: 2023-03-28 Pat Name: HIRAM MADRID Department: Room: 2181 Gender: Female Tentering Machine Off Bearer: : 1935 Requested By: MAMI DANIELS Order Number: [id number] Reading MD: MAMI DANIELS Measurements Intervals [place] Rate: 68 P: 57 [place]: 205 QRS: -12 QRSD: 133 T: -20 QT: 416 QTc: 442 Interpretive Statements SINUS RHYTHM POSSIBLE LEFT ATRIAL ENLARGEMENT [-0.1mV P WAVE IN V1/V2] RIGHT BUNDLE BRANCH BLOCK [120+ ms QRS DURATION, UPRIGHT V1, 40+ ms S IN I/aVL/V4/V5/V6] Compared to ECG 03/28/2023 05:53:22 No significant changes Electronically Signed On 03-30-2023 5:32:10 EST by MAMI DANIELS
--- NOTE | 2023-03-28 17:45 | PM.CACN ---
History of Present Illness History of Present Illness Consult date: 03/28/23 Requesting physician: Addy Clemente Chief complaint: NAUSEA/HYPERTENSION Narrative: 87 yr old with known issue of syncope believed to be vasovagal in nature who is previously evaluated by Kelly Garcia [facility] INDUSTRIAL ENGINEERING MANAGER was admitted from emergency room with increasing unsteady gait with workup in the emergency room found patient have severe hyponatremia with neurological symptoms. Patient was admitted for further evaluation. In the floor, she was noted to have bradycardia and subsequent syncope. RN states that pt was getting ready to utilize rest room when she felt dizzy. She rested and thereafter felt better. Then she got up to use rest room and while on the toilet, had syncope and soiled herself. She recovered and and had mild confusion. At the time of my interview, she was conscious and stated that she has felt these before. Evaluating her tele, she had sincu gian and then junctional at 30bpm. No singificant AV delay or AV block noted. Prior testing Review of Systems ROS Status of ROS 10 or more systems reviewed and unremarkable except as noted in history and below Eyes Reports: blurry vision [facility] Medical History (Updated 03/28/23 @ 18:02 by Rajesh Galaviz MD) Syncope, vasovagal ?R55 - Syncope and collapse (ICD-10) Hypochloremia ?E87.8 - Other disorders of electrolyte and fluid balance, not elsewhere classified (ICD-10) Acute hypokalemia ?E87.6 - Hypokalemia (ICD-10) Contusion of hip, left ?S70.02XA - Contusion of left hip, initial encounter (ICD-10) Fall ?W19.XXXA - Unspecified fall, initial encounter (ICD-10) COVID ?U07.1 - COVID-19 (ICD-10) Hyponatremia ?E87.1 - Hypo-osmolality and hyponatremia (ICD-10) Hypomagnesemia ?E83.42 - Hypomagnesemia (ICD-10) Colitis ?K52.9 - Noninfective gastroenteritis and colitis, unspecified (ICD-10) GI bleed ?K92.2 - Gastrointestinal hemorrhage, unspecified (ICD-10) Elevated blood pressure reading ?R03.0 - Elevated blood-pressure reading, without diagnosis of hypertension (ICD-10) Back pain with history of spinal surgery ?M54.9 - Dorsalgia, unspecified (ICD-10) ?Z98.890 - Other specified postprocedural states (ICD-10) Thyroid disease ?E07.9 - Disorder of thyroid, unspecified (ICD-10) Syncope ?R55 - Syncope and collapse (ICD-10) Neuropathy ?G62.9 - Polyneuropathy, unspecified (ICD-10) Kidney stones ?N20.0 - Calculus of kidney (ICD-10) Hypertension ?I10 - Essential (primary) hypertension (ICD-10) Hyperlipidemia ?E78.5 - Hyperlipidemia, unspecified (ICD-10) Hydronephrosis ?N13.30 - Unspecified hydronephrosis (ICD-10) Hard of hearing ?H91.90 - Unspecified hearing loss, unspecified ear (ICD-10) Atrial fibrillation ?I48.91 - Unspecified atrial fibrillation (ICD-10) Arthritis ?M19.90 - Unspecified osteoarthritis, unspecified site (ICD-10) Acute hyponatremia ?E87.1 - Hypo-osmolality and hyponatremia (ICD-10) Orthostasis ?I95.1 - Orthostatic hypotension (ICD-10) Syncope due to orthostatic hypotension ?I95.1 - Orthostatic hypotension (ICD-10) Surgical History History of tonsillectomy ?Z90.89 - Acquired absence of other organs (ICD-10) H/O colonoscopy ?Z98.890 - Other specified postprocedural states (ICD-10) Hx of cholecystectomy ?Z90.49 - Acquired absence of other specified parts of digestive tract (ICD-10) History of cataract extraction ?Z98.49 - Cataract extraction status, unspecified eye (ICD-10) History of salpingoophorectomy ?Z90.79 - Acquired absence of other genital organ(s) (ICD-10) ?Z90.721 - Acquired absence of ovaries, unilateral (ICD-10) History of appendectomy ?Z90.49 - Acquired absence of other specified parts of digestive tract (ICD-10) Family History Mother Family history of CHF (congestive heart failure) Father Lupus Brother Family history of myocardial infarction Family history of stroke Other Arthritis Family history of hypertension Social History Within the past year, how often did you have a drink containing alcohol: never Score interpretation: A score less than 3 is consistent with normal alcohol consumption. 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 Highest level of school completed/degree received: 9th grade Are you now , , , , never or living with a partner: In a typical week, how many times do you talk on the telephone with family, friends, or neighbors: 3 or more times per week How often do you get together with friends or relatives: 3 or more times per week How often do you attend yazidism or denominational services: 4 or more times per year Do you belong to any clubs or organizations such as yazidism groups unions, [employer] or athletic groups, or school groups: yes Total score: 3 Score interpretation: A score of greater than or equal to 2 indicates the lowest level of social isolation. Little interest or pleasure in doing things: not at all Feeling down, depressed, or hopeless: not at all Feel stressed/tense/nervous/anxious/difficulty sleeping: not at all Life stressors: recent of family or friend Do you think of yourself as: straight/heterosexual Gender Identity: female Meds Home Medications and Allergies Home Medications Medication Instructions Recorded Confirmed Type amlodipine 10 mg tablet 10 mg PO QDAY 08/10/22 03/28/23 History levothyroxine 88 mcg tablet 88 mcg PO QDAY 08/10/22 03/28/23 History losartan 100 mg tablet 100 mg PO QDAY 08/10/22 03/28/23 History potassium chloride 20 mEq 20 meq PO TID 08/10/22 03/28/23 History tablet,extended release pravastatin 80 mg tablet 80 mg PO QDAY 08/10/22 03/28/23 History pantoprazole 40 mg tablet,delayed 40 mg PO DAILY #30 tabs 08/17/22 03/28/23 Rx release (Protonix) carvedilol 25 mg tablet 25 mg PO Q12H 02/10/23 03/28/23 History magnesium oxide 400 mg (241.3 mg 400 mg PO BID PRN constipation 02/10/23 03/28/23 History magnesium) tablet hydrochlorothiazide 25 mg tablet 25 mg PO DAILY 03/28/23 03/28/23 History Allergies Allergy/AdvReac Type Severity Reaction Status Date / Time atorvastatin Allergy Severe HIVES Verified 03/28/23 05:53 prednisone Allergy Severe Rash Verified 03/28/23 05:53 Exam Narrative Exam Narrative: Gen: Alert and orient to time, place person CVS: s1 , S2 normal RS: b/l airn entry equal Abd: Soft, BS+ INSPECTOR FILTERS: Grosss motro power 5 Extr: no pedal edema Constitutional Vital Signs, click to edit/add: Last Vital Signs Temp 97.3 F L 03/28/23 14:02 Pulse 89 03/28/23 16:19 Resp 16 03/28/23 14:02 BP 150/78 H 03/28/23 14:02 Pulse Ox 93 L 03/28/23 14:02 O2 Del Method Room Air 03/28/23 14:02 Documenting provider has reviewed patient's vital signs: yes Common normals: no apparent distress General appearance: cooperative and comfortable HENMT Common normals: normocephalic Chest Common normals: inspection of chest normal Chest: symmetrical chest wall rise Results Labs and Meds Lab results: Cardiac Enzymes 03/28/23 Range/Units 05:55 AST 17 (15-37) U/L CBC 03/28/23 Range/Units 05:55 WBC 12.3 H (4.0-11.0) 10^3/uL RBC 4.30 (4.20-5.40) 10^6/uL Hgb 13.8 (12.0-16.0) g/dL Hct 38.9 (36.0-48.0) % Plt Count 440 (150-450) 10^3/uL Neut # (Auto) 9.2 H (1.4-6.5) 10^3/uL Lymph # (Auto) 1.9 (1.2-3.8) 10^3/uL [place] # (Auto) 1.0 H (0.3-0.8) 10^3/uL Eos # (Auto) 0.1 (0.0-0.7) 10^3/uL Baso # (Auto) 0.1 (0.0-0.1) 10^3/uL Comprehensive Metabolic Panel 03/28/23 Range/Units 05:55 Sodium 123 L* (136-145) mmol/L Potassium 3.0 L (3.5-5.1) mmol/L Chloride 86 L (98-107) mmol/L Carbon Dioxide 27.0 (21.0-32.0) mmol/L BUN 9.0 (7.0-18.0) mg/dL Creatinine 0.78 (0.55-1.02) mg/dL Glucose 140 H (74-106) mg/dL Calcium 9.4 (8.5-10.1) mg/dL AST 17 (15-37) U/L ALT 22 (14-59) U/L Alkaline Phosphatase 77 (46-116) U/L Total Protein 7.8 (6.4-8.2) g/dL Albumin 3.7 (3.4-5.0) g/dL Intake and Output 03/28/23 03/28/23 03/28/23 07:59 15:59 23:59 Intake Total 500 / 770 270 / 770 Output Total 500 / 500 Balance 0 / 270 270 / 270 Intake: IV 500 / 770 270 / 770 0.9 % Sodium Chloride 500 ml @ 500 / 500 500 mls/hr IV .Q1H ONE Rx#: [id number] Potassium Chloride 40 meq In 0. 270 / 270 9 % Sodium Chloride 250 ml @ 67 .5 mls/hr IV Q6H PRN Rx#: [id number] Output: Urine 500 / 500 Other: # Unmeasured Voids 1 # Bowel Movements 1 Weight 65.317 kg 62.171 kg Patient Weight 03/29/23 07:59 Weight 62.171 kg Assessment and Plan Assessment and Plan (1) Syncope, vasovagal: Assessment and Plan: Appears that her syncope is likely vagally mediated with an added component of orthostatics. Would recc checking orthostatics and a tilt tayla tot document this formally. adv being hydrated. 30d event monitor on discharge to see further EKG- symptom correlation. Ct to monitor via telemed (2) Acute hyponatremia: Assessment and Plan: adv fluid and correction (3) Hypokalemia: Assessment and Plan: repeat check with fluids (4) Hypomagnesemia: (5) Hypertension: Assessment and Plan: Ct home meds if SBP> 140/90 (6) Atrial fibrillation: Plan Follow up with EP after 30d event monitor.
[2023-03-29] VITALS (11 sets, daily range): BP systolic 121–184; BP diastolic 62–71; PULSE 64–86; RESP 15–20; TEMP 37.2; O2SAT 93–96
[2023-03-29 05:40] LABS: Basophils Percent Auto 0.3 % (0.2-2.0); Eosinophils Percent Auto 0.2 % (0.9-7.0); Hematocrit 32.7 % (36.0-48.0); Hemoglobin 11.8 g/dL (12.0-16.0); Immature Granulocytes Abs Auto 0.05 10^3/uL (0.00-0.03); Immature Granulocytes Pct Auto 0.4 % (0.0-0.5); Lymphocytes Absolute Auto 1.7 10^3/uL (1.2-3.8); Lymphocytes Percent Auto 15.1 % (20.5-60.0); Mean Corpuscular HGB Conc 36.1 g/dL (29.9-35.2); Mean Corpuscular Hemoglobin 34.1 pg (26.7-34.0); Mean Corpuscular Volume 94.5 fL (81.0-99.0); Mean Platelet Volume 8.9 fL (9.5-13.5); Monocytes Percent Auto 8.6 % (1.7-12.0); Neutrophils Absolute Auto 8.4 10^3/uL (1.4-6.5); Neutrophils Percent Auto 75.4 % (43.0-75.0); Platelet Count 396 10^3/uL (150-450); Red Blood Count 3.46 10^6/uL (4.20-5.40); Red Cell Distribution Width 13.2 % (11.0-15.0); White Blood Count 11.2 10^3/uL (4.0-11.0)
[2023-03-29] MEDS: OMEPRAZOLE 40 MG CAPSULE.DR PO (05:45)
[2023-03-29] MEDS: LEVOTHYROXINE SODIUM 88 MCG TABLET PO (05:46)
[2023-03-29] MEDS: POTASSIUM CHLORIDE 10 MEQ ER TABLET 20 MEQ PO (05:46)
[2023-03-29 06:08] LABS: Anion Gap 13.8; BUN Creatinine Ratio 12.7; Calcium 8.9 mg/dL (8.5-10.1); Carbon Dioxide 23.2 mmol/L (21.0-32.0); Chloride 101 mmol/L (98-107); Estimated GFR (African America >60 (>=60); Estimated GFR (Non-African Ame >60 (>=60); Glucose 113 mg/dL (74-106); Sodium 135 mmol/L (136-145)
[2023-03-29] MEDS: POTASSIUM CHLORIDE 40 MEQ in 0.9 % SODIUM CHLORIDE 250 ML 67.5 MEQ IV (07:46)
[2023-03-29] MEDS: LOSARTAN POTASSIUM 50 MG TABLET 100 MG PO (08:58)
[2023-03-29] MEDS: AMLODIPINE BESYLATE 5 MG TABLET 10 MG PO (08:58)
[2023-03-29] MEDS: CARVEDILOL 25 MG TABLET PO (08:58)
[2023-03-29] MEDS: MAGNESIUM OXIDE 400 MG TABLET PO (08:58)
[2023-03-29] MEDS: CITALOPRAM HYDROBROMIDE 20 MG TABLET PO (08:59)
[2023-03-29] MEDS: HYDROCHLOROTHIAZIDE 25 MG TABLET PO (08:59)
--- NOTE | 2023-03-29 09:45 | PM.DS1 ---
DS: Providers Provider Date of admission: 03/28/23 08:43 Primary care physician: Addy Clemnete MD Consults: 03/28/23 10:18 Occupational Therapy Eval and Treat Routine Reason for consultation: only if needed for rehab :) Physical Therapy Eval and Treat Routine Reason for consultation: eval unsgteady gait 03/28/23 12:30 Consult to Cardiology Routine Reason for consultation: symptomatic bradycardia DS: Diagnosis Discharge Diagnosis (1) Syncope, vasovagal: (2) Acute hyponatremia: (3) Hypokalemia: (4) Hypomagnesemia: (5) Hypertension: (6) Atrial fibrillation: DS: Summary Hospital Course Hospital Course: Patient was in the emergency room with increasing weakness. Found to have significant hyponatremia. Patient has a history of water intoxication. She does describe that she been drinking more water lately. She is also very unsteady on her gait. With the neurological changes she was placed on 3%, given 500 cc over 10 hours. Patient tolerated that well with no increase in swelling or shortness of breath. Her sodium this morning is returned back to her almost her baseline of 135. She had hypokalemia on admission that was deteriorated today. Give her potassium bolus and increase oral doses. The plan was if she tolerates breakfast and lunch, ambulating without difficulty, she will be discharged home in improving condition. Medications see list. Follow-up with me in the office next week. He is to watch her fluid intake. Time Spent with Patient Time attestation: Total time spent providing and/or coordinating discharge services: Exam Constitutional Vital Signs, click to edit/add: Last Vital Signs Temp 98.9 F 03/29/23 04:31 Pulse 75 03/29/23 08:00 Resp 15 03/29/23 08:00 BP 184/71 H 03/29/23 08:59 Pulse Ox 93 L 03/29/23 04:31 O2 Del Method Room Air 03/29/23 04:31 Documenting provider has reviewed patient's vital signs: yes Common normals: no apparent distress HENMT Common normals: normocephalic and moist oral mucous membranes Chest Common normals: inspection of chest normal and palpation of chest normal Respiratory Common normals: normal respiratory effort Cardio Common normals: regular rate and regular rhythm GI Common normals: Normal to inspection, nondistended, normoactive bowel sounds present Extremity Common normals: normal to inspection (No edema) Neuro Common normals: oriented x3, CN's II-XII intact bilaterally and moves all extremities (For gait with ambulation-unsteady) DS: Data Data Completed and Pending Labs on day of discharge: Labs from last 24 hours 03/29/23 03/28/23 04:21 12:20 WBC 11.2 H RBC 3.46 L Hgb 11.8 L Hct 32.7 L MCV 94.5 MCH 34.1 H MCHC 36.1 H RDW 13.2 Plt Count 396 MPV 8.9 L Neut % (Auto) 75.4 H Lymph % (Auto) 15.1 L Towner % (Auto) 8.6 Eos % (Auto) 0.2 L Baso % (Auto) 0.3 Neut # (Auto) 8.4 H Lymph # (Auto) 1.7 Towner # (Auto) 1.0 H Eos # (Auto) 0.0 Baso # (Auto) 0.0 Abs Immat Gran (auto) 0.05 H Imm/Tot Granulo (auto) 0.4 Sodium 135 L Potassium 3.0 L Chloride 101 Carbon Dioxide 23.2 Anion Gap 13.8 BUN 8.0 Creatinine 0.63 Est GFR ( Amer) >60 Est GFR (Non-Af Amer) >60 BUN/Creatinine Ratio 12.7 Glucose 113 H Calcium 8.9 Ur Random Sodium 50 Discharge Plan Discharge Disposition: Home, Self-Care Condition: Good Discharge Medications: New carvedilol [Coreg] 12.5 mg tablet 12.5 mg PO Q12H Qty: 60 11RF Rx Instructions: must administer with a meal/food amlodipine 5 mg tablet 5 mg PO DAILY Qty: 30 11RF Continued levothyroxine 88 mcg tablet 88 mcg PO QDAY losartan 100 mg tablet 100 mg PO QDAY pravastatin 80 mg tablet 80 mg PO QDAY potassium chloride 20 mEq tablet extended release 20 meq PO TID pantoprazole [Protonix] 40 mg tablet,delayed release (DR/EC) 40 mg PO DAILY Qty: 30 11RF magnesium oxide 400 mg (241.3 mg magnesium) tablet 400 mg PO BID PRN (Reason: constipation) hydrochlorothiazide 25 mg tablet 25 mg PO DAILY Discontinued amlodipine 10 mg tablet 10 mg PO QDAY carvedilol 25 mg tablet 25 mg PO Q12H Activity: increase activity as tolerated and resume usual activities as tolerated Diet: advance to your usual diet Diet Detail: regular Print Language: [place] Patient Instructions: Potassium Content of Foods List (DC), Hyponatremia (DC), Hypokalemia (DC) Forms: Portal Instructions Follow Up Appointments: @ 1pm with Dr. Clemente [phone] Discharge Date/Time: 03/29/23 12:29
--- NOTE | 2023-03-29 10:17 | CM.NOTE ---
Rounds made with Dr. Clemente. Potential discharge today if safe for discharge to home.
--- NOTE | 2023-03-29 11:07 | REH.PTDLY ---
Physical Therapy Daily Note PT Daily Note/Assess Start: 03/28/23 17:23 Freq: Status: Active Protocol: Document 03/29/23 11:00 [facility] (Rec: 03/29/23 11:07 [id number]) Physical Therapy Daily Note/Assessment Time In 09:10 Time Out 09:23 Pain Level 0 Pain Level 0 Subjective Pt up in chair, finishing breakfast. No complaints. Therapeutic Exercise Minutes (minutes) 6 Therapeutic Exercise Units 0 Therapeutic Exercise Treatment Instructed in B LE seated exs for improved strength 10x ea with exs including AP, LAQ, marching, hip abd, and hip add . No complaints with exs. Therapeutic Activity Minutes (minutes) 7 Therapeutic Activity Units 1 Chair Transfer Ability Standby Assistance Therapeutic Activity Comments Sit to stand transfers from chair 7x Supervised with pt pushing off from arms of chair . Gait training with SC CGA 85 feet with pt ambulating at slower pace. Total Therapy Minutes 13 Total Physical Therapy Units 1 Daily Note Summary Pt does well with rx, does ambulate cautiously with gait. Mild fatigue noted. Pt equipped with RW and SC for home, also has ramp to enter.
--- NOTE | 2023-03-29 11:34 | CM.NOTE ---
Reviewed Lili German with [facility]. Refuses Home Health or [facility] Care Facility at this time. Will be going to her daughter's house for a few days until she feels herself again.
--- NOTE | 2023-03-29 11:57 | CM.NOTE ---
Medicare Outpatient Observation Notice (VALLES) reviewed with Ms. Gurrola. Verbalizes understanding. No questions offered. Original to Ms. Gurrola and copy to chart.
--- NOTE | 2023-03-29 12:32 | SWNOTE1 ---
SW spoke with case management and pt had refused Home Health and SNF at this time. Pt going to live with her daughter.
--- NOTE | 2023-03-31 15:05 | CM.DCFOLLOWU ---
Person spoke with: patient How are you feeling? not a lot better How is your pain? none at this time Did you understand your discharge instructions? yes Do you have any questions about your discharge instructions? no Were you given any prescriptions at discharge? yes Were you able to get your prescriptions filled? yes Do you understand how to take your medications as ordered? yes Do you have any questions about your follow up appointment and do you plan to keep your follow up appointment? Keeping appointment with Dr. Clemente on 04/05 at 1pm. Is there anything else that you would like to discuss? no thanks Questions/Comments/Concerns/Other:
== END 2023-03-29 12:29 | disposition home or self-care (01) ==
LOC: ER 07:31 → MS 08:50
PROVIDERS: Internal Medicine; Admitting Provider Family Medicine; Emergency Provider Emergency Medicine; PCP Family Medicine; Visit Provider Family Medicine
DX: E87.1 Hypo-osmolality and hyponatremia (principal); E87.6 Hypokalemia; E83.42 Hypomagnesemia; R55 Syncope and collapse; I10 Essential (primary) hypertension; I48.91 Unspecified atrial fibrillation; R26.81 Unsteadiness on feet; Z79.899 Other long term (current) drug therapy; Z79.890 Hormone replacement therapy; Z91.81 History of falling
CPT/HCPCS: 36415; 80048; 80053; 81001; 83735; 83880; 84300; 84484; 85025; 93005; 94761; 96365; 96366; 96375; 96376; 97162; 97165; 97530; 99285; G0378; J1290; J2405; J3480; J7131

== ENCOUNTER 2023-03-30 15:43 | Outpatient (OUT) | payer MEDICARE, OTHER, SELFPAY ==
--- OUTSIDE RECORDS SUMMARY | 2023-03-30 15:59 | XMS_ITS | CCD ---
Author Name Unknown Address [address] [place] [address] Organization [facility] Care Team Providers Care Polls Or Surveys Interviewer Name Role Phone PHYSICIAN, DEFAULT Admitting Unavailable [...] Care Unavailable Calista Aceves Primary Care Provider [phone] CALISTA ACEVES Primary Care Physician DR VALERIE [...] Pereira Primary Care Unavailable ACEVES, DR CALISTA Pereria Attending Unavailable ACEVES, DR CALISTA Pereira Admitting [...] Unavailable MD Addy Daniels Primary Care Provider [phone] Camacho Ladd Emergency Provider [facility] Camacho Rocha Admitting Unavailable Addy Daniels Primary [...] Allergy 8 Hives, Eruption of skin (disorder) [place], [place] (2 sources) predniSONE Drug Allergy 7 [facility] (1 source) predniSONE Drug Allergy 3 [facility] (3 sources) atorvastatin; Translations: [atorvastatin] Drug Allergy 3 Unknown (qualifier value) [facility] (2 sources) Ibuprofen; Translations: [ibuprofen] Drug Allergy Unknown (qualifier value) [facility] Natalya Medications Current Medications Medication Drug [...] Antibacterial, Polymyxin-class Antibacterial Start: 11-16-2018 End: 11-18-2018 dvtegyxd-mkgfskfmxo-citbwpat n (NEOSPORIN) ointment carvedilol (1 source) alpha-Adrenergic [...] 5 August 05, 2022 polyethylene glycol 3350 76565 mg powder for oral solution (1 source) Osmotic Laxative Start: 11-15-2018 polyethylene glycol (GLYCOLAX) packet 17 g Potassium Chloride (7 sources) Start: 08-10-2022 Potassium Chlo ride (Jxf-Qtlf-Hac 10) mEq, Oral, BID Start Date: 08/10/22 Status: Ordered Start: 11-05-2018 End: 11-05-2018 potassium chloride (KLOR-CON M) extended release tablet 40 mEq Start: 11-04-2018 20 mEq, Oral, 2 TIMES DAILY, First dose on Aura 11/15/18 at 2100 Dilute with at least 4 ounces of cold water. May further dilute if GI adverse effects occur. 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; Translations: [ALF CURRENT USE OF ASPIRIN] Onset: 12-31-2021 Episodic 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 source) Other intermediate (current) drug therapy; Translations: [OTH ALF CURRENT DRUG THERAPY] Onset: 12-31-2021 Episodic Residual [...] Range Facility Office Visiton 01-11-2023 Follow-up visit [id number] Hiram Madrid 1935 F Date Provider Department Center 01/11/2023 LESLY GASPAR [facility]ARD [facility] Family History Problem Relation Age of Onset Hypertension Mother Lupus Mother Coronary artery disease Mother Heart attack Mother Hypertension Father Aneurysm Father Coronary artery disease Father Hypertension Sister Lupus Sister Family Status - Relation Status Age at Mother Father Sister Level of Service:04772 DE OFFICE/OUTPATIENT ESTABLISHED MOD MDM 30-39 MIN Normal [facility] Lab Reportson 12-23-2022 Lab Reports [id number] 0TIFF Normal [facility] Urology Office/Clinic Noteon 12-23-2022 Urology Office/Clinic [...] Pt presented to ER due to syncope. [place] was found incidentally on CT. CT AP [...] Contact Information ABDULLAHI NOONAN, MIKAYLA Pereira, URL [address] [place] [address] [phone] Additional Instructions: 6 mos w/ renal fxn (per PCP) Patient Education Hydronephrosis Documentation recorded by the naanth Gan accurately reflects the services(s) I performed [...] Tab losartan 100 mg Tab Potassium Chloride (Skv-Uici-Due 10), Oral, BID pravastatin 80 mg Tab [...] virus vaccine, (more content not included)... [facility] Comment on above: Result Comment: Elec tronically Signed By: MIKAYLA WEISS PA-C\.br\Date and Time Signed: 12/23/22 12:13 EDT\.br\Electronically Co-Signed By: Jacquie Gan\.br\Date and Time Co-Signed: 12/22/22 12:27 EDT Ambulatory Visit Summaryon 1 02-21-2022 Ambulatory Visit Summary HIRAM MADRID :1935 Visit Date:12/22/2022 Ambulatory Visit Instructions Your Diagnosis Hydronephrosis, right Ureteral stenosis Tests Performed Urnls Dip Stick Auto w/o Microscopy POC 08856 US Renal -- Results Pending -- Please [...] 100 mg Tab) potassium chloride (Potassium Chloride (Guz-Ykyr-Jac 10)) pravastatin (pravastatin 80 mg Tab) Procedures Performed Appendectomy, Bilateral salpingo-oophorectomy, Cataract extraction and insertion of intraocular lens, Cholecystectomy, Colonoscopy, Procedure on back, Tonsillectomy. Discharge Vitals Blood Pressure 124/84 Height 155 cm Height 61 in Weight 64.8 kg Weight 142.56 lb BMI 26.97 What to do next Scheduled Follow-Up Appointments June. 2023 9:30 AM EDT With: MIKAYLA WEISS PA-C Where: [facility] Natalya Anders [facility] Patient Educationon 12-23-19 Patient Education Urology [...] Follow these instructions at home: ? Take kszl-qpx-tearooz and prescription medicines only as told by [...] provider. Document Revised: 05/26/2020 Document Reviewed: 05/26/2020 [employer] Patient Education ? 2022 [employer]. [facility] RAD - Ultrasound Reporton RAD - Ultrasound Report [id number] 0TIFF [facility] Reminderson 12-22-2022 Reminders - From: Jacquie Gan To: ERIN Weiss; Sent: 12/22/2022 12:30:05 EDT Show up: 05/23/2023 12:30:00 EDT Subject: JAC and BUN/Creatinine prior to appt Reminder Message Please Remember to:_have pt schedule JAC prior to appt. Please look for BUN/Cr labs from PCP. If unable to locate recent labs, send pt order to complete this. Normal [facility] Orders Onlyon 10-25-2022 Orders Only [id number] Hiarm Madrid 1935 F Date Provider Department Center 10/25/2022 [facility] Problem Relation Age of Onset Hypertension Mother Lupus Mother Coronary artery disease Mother Heart attack Mother Hypertension Father Aneurysm Father Coronary artery disease Father Hypertension Sister Lupus Sister Family Status - Relation Status Age at Mother Father Sister Normal [facility] 37on 10-14-2022 37 Increase coreg/carvedilol to 25 mg twice a day- you have 12.5 mg tabs now so take 2 twice a day until this bottle is gone- your next refill will be the higher dose of 25 mg bid. Have labs drawn [facility] Office Visiton 10-14-2022 Follow-up visit [id number] Hiram Madrid 1935 Date Provider Department Center 10/14/2022 LESLY GASPAR SONIA Fatmata [facility] Family History Problem Relation Age of Onset Hypertension Mother Lupus Mother Coronary artery disease Mother Heart attack Mother Hypertension Father Aneurysm Father Coronary artery disease Father Hypertension Sister Lupus Sister Family Status - Relation Status Age at Mother Father Sister Level of Service:40709 DE OFFICE/OUTPATIENT ESTABLISHED MOD MDM 30-39 MIN [facility] Consent for Procedure/Surger yon 09-07-2022 Consent for Procedure/Surgery [id number]#1. 00CD:127 [facility] Ambulatory Visit Summaryon 0 09-06-2022 Ambulatory Visit Summary HIRAM MDARID :1935 Visit Date:09/06/2022 Ambulatory Visit Instructions Your [...] 100 mg Tab) potassium chloride (Potassium Chloride (Eak-Dopc-Qjt 10)) pravastatin (pravastatin 80 mg Tab) Procedures Performed Appendectomy, Bilateral salpingo-oophorectomy, Cataract extraction and insertion of intraocular lens, Cholecystectomy, Colonoscopy, Procedure on back, Tonsillectomy. Discharge Vitals Height 155 cm Height 61 in Weight 65 kg Weight 143 lb BMI 27.06 What to do next Scheduled Follow-Up Appointments Monday 2:00 PM EDT With: CHRISTY DUMONT, Raymond Mckeon Where: [facility] Patient Educationon 09-07-19 Patient Education Urology Hydronephrosis [...] Follow these instructions at home: ? Take gvdh-vql-hrfqlya and prescription medicines only as told by [...] provider. Document Revised: 05/26/2020 Document Reviewed: 05/26/2020 [employer] Patient Education ? 2022 [employer] Normal [facility] Urology Office/Clinic Noteon 09-06-2022 Urology Office/Clinic [...] [facility] [address], [place] [address]- Additional Instructions: 3 mos no labs Patient [...] Tab losartan 100 mg Tab Potassium Chloride (Mvw-Mvcn-Dky 10), Oral, BID pravastatin 80 mg Tab [...] inactivated 12/06/2016 Rec (more content not included)... [facility] Comment on above: Result Comment: Elec tronically Signed By: Raymond HARRISON MD\.br\Date and Time Signed: 09/06/22 13:02 EDT\.br\Electronically Co-Signed By: Josefa Stewart\.br\Date and Time Co-Signed: 09/06/22 13:01 EDT Operative Reporton Operative Report [id number] CD:127 [facility] RAD - MISCon 08-12-2022 RAD - MISC [id number] CD:127 [facility] Ambulatory Visit Summaryon 0 08-10-2022 Ambulatory Visit Summary HIRAM MADRID :1935 Visit Date:08/10/2022 Ambulatory Visit Instructions Your Diagnosis Hydronephrosis, right Aspirin long-term use Tests Performed Urnls Dip Stick Auto w/o Microscopy POC 27137 Your Care Team Attending Physician - Raymond HARRISON MD Primary Care Physician - Addy Daniels MD This Is Your Medications List Contact prescribing physician if questions or concerns amlodipine (amLODIPine 10 mg Tab) aspirin (aspirin 81 mg oral capsule) carvedilol hydrochlorothiazide levothyroxine (levothyroxine 88 mcg (0.088 mg) Tab) losartan (losartan 100 mg Tab) potassium chloride (Potassium Chloride (Hun-Sxsw-Whm 10)) pravastatin (pravastatin 80 mg Tab) Procedures [...] When: Where: [facility] [address] [place] [address]- Medications What How Much When Instructions Unchanged [...] or concerns Unchanged potassium chloride (Potassium Chloride (Txt-Oaay-Ieb 10)) 2 times a day Contact prescribing physician if questions or concerns Unchanged pravastatin (pravastatin 80 mg Tab) 30 EA, TAKE 1 TABLET BY MOUTH ONCE DAILY Contact prescribing physician if questions or concerns Test Results Urnls Dip Stick Auto w/o Microscopy POC 37303 (08/10/2022) Bilirubin Urine Dipstick - Negative Blood Urine Dipstick - Negative Glucose Urine Dipstick - Negative Ketones Urine Dipstick - Negative Leukocytes Urine Dipstick - Trace Nitrite Urine Dipstick - Negative Protein Urine Dipstick - Negative Specific [place] Urine Dipstick - 1.025 Urine Appearance Urine [...] what caus (more content not included)... [facility] Ambulatory Visit Summary HIRAM MADRID :1935 Visit Date:08/10/2022 Ambulatory Visit Instructions Your Diagnosis Hydronephrosis, right Aspirin long-term use Tests Performed Urnls Dip Stick Auto w/o Microscopy POC 92112 Your Care Team Attending Physician - CHRISTY DUMONT, Raymond Mckeon Primary Care Physician - Addy Daniels MD This Is Your Medications List Contact prescribing physician if questions or concerns amlodipine (amLODIPine 10 mg Tab) aspirin (aspirin 81 mg oral capsule) carvedilol hydrochlorothiazide levothyroxine (levothyroxine 88 mcg (0.088 mg) Tab) losartan (losartan 100 mg Tab) potassium chloride (Potassium Chloride (Ilw-Ovhp-Hxf 10)) pravastatin (pravastatin 80 mg Tab) Procedures [...] Where: [facility] [address] [place] [address]- Medications What How Much When Instructions Unchanged [...] or concerns Unchanged potassium chloride (Potassium Chloride (Bcw-Rteg-Tgz 10)) 2 times a day Contact prescribing physician if questions or concerns Unchanged pravastatin (pravastatin 80 mg Tab) 30 EA, TAKE 1 TABLET BY MOUTH ONCE DAILY Contact prescribing physician if questions or concerns Test Results Urnls Dip Stick Auto w/o Microscopy POC 53780 (08/10/2022) Bilirubin Urine Dipstick - Negative Blood Urine Dipstick - Negative Glucose Urine Dipstick - Negative Ketones Urine Dipstick - Negative Leukocytes Urine Dipstick - Trace Nitrite Urine Dipstick - Negative Protein Urine Dipstick - Negative Specific [place] Urine Dipstick - 1.025 Urine Appearance Urine [...] what caus (more content not included)... [facility] Consent for Procedure/Surger yon 08-10-2022 Consent for Procedure/Surgery [id number] CD:127 [facility] Formson 08-10-2022 Forms [id number] CD:127 [facility] Patient Educationon 08-11-19 Patient Education Urology [...] Follow these instructions at home: ? Take mufq-vlz-twogvxt and prescription medicines only as told by [...] provider. Document Revised: 05/26/2020 Document Reviewed: 05/26/2020 [employer] Patient Education ? 2022 [employer]. [employer] [facility] Urology Office/Clinic Noteon 08-10-2022 Urology Office/Clinic Note Chief Complaint Kidney stones HPI Staff New Pt follow up to [facility] on 08/05/22 due [...] yo female new pt following up to [facility] ER visit on [...] General anesthesia. 2. 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 Follow-up With When Contact Information Raymond HARRISON MD, URL [facility] [address], [place] [address]- Additional Instructions: schedule R URS, possible laser [...] No qualifyin (more content not included)... [facility] Comment on above: Result Comment: Elec tronically Signed By: Raymond HARRISON MD\.br\Date and Time Signed: 08/10/22 09:39 EDT\.br\Electronically Co-Signed By: Josefa Stewart\.br\Date and Time Co-Signed: 08/10/22 09:38 EDT XR [facility] 08-09-2022 XR [facility] [address] [address] XRay Report Signed Patient: Hiram Madrid MR#: [id number] : 1935 Acct:[id number] Age/Sex: 86 / F ADM Date: 08/09/22 Loc: XD Room: Type: [facility] Attending Dr: Raymond Harrison MD Copies to: [...] Lopez Jr., D.OYou08/09/2022 3:58 PM Dictation Location: [place] [address] Transcribed By: [facility] 08/09/22 1558 Dictated By: Kameron Lopez Jr, DO 08/09/22 1555 Signed By: 08/09/22 [address] [facility] [address] abdomen pelvis wo conon 0 08-06-2022 CT abdomen pelvis wo con [place] [id number] CT Scan Report Signed Patient: Hiram Madrid MR#: [id number] : 1935 Acct:[id number] Age/Sex: 86 / F ADM Date: 08/05/22 Loc: ER Room: Type: [facility] ER Attending Dr: Copies to: Camacho [...] Faye Wyman M.D.08/06/2022 8:43 AM Dictation Location: [place] [address] Transcribed By: [facility] 08/06/22 0843 Dictated By: Faye Wyman MD 08/06/22 0830 Signed By: 08/06/22 0843 [facility] Alanine aminotransferase [En zymatic activity/volume] in Serum or PlasmaOrdered By: Camacho Ladd on 08-05-2022 ALT [Catalytic activity/Vol] 16 U/L 7-52 [facility] Albumin [Mass/volume] in Ser um or Plasma by Bromocresol green (BCG) dye binding methoOrdered By: Camacho Ladd on 08-05-2022 Albumin BCG dye [Mass/Vol] 4.4 g/dL 3.5-5.7 [facility] Alkaline phosphatase [Enzyma tic activity/volume] in Serum or PlasmaOrdered By: Camacho Ladd on 08-05-2022 ALP [Catalytic activity/Vol] 61 U/L 34-104 [facility] Aspartate aminotransferase [ Enzymatic activity/volume] in Serum or PlasmaOrdered By: Camacho Ladd on 08-05-2022 AST [Catalytic activity/Vol] 21 U/L 13-39 [facility] Automated erythrocytes count in urine sediment (number/area)Ordered By: Camacho Ladd on 08-05-2022 RBC Auto (Urine sed) [#/Area] 0-1 [HPF] 0-4 [facility] Automated leukocytes count i n urine sediment (number/area)Ordered By: Camacho Ladd on 08-05-2022 WBC Auto (Urine sed) [#/Area] 1-2 [HPF] 0-4 [facility] Basic Metabolic Panelon 07-21 Anion gap [Moles/Vol] 17.8 mmol/L High 6.0-15.0 [facility] Comment on above: Performed By: #### H S TROP, HEPATIC, LIPASE, CBC, BMP #### [facility] [address] Calcium [Mass/Vol] 9.7 mg/dL Normal 8.6-10.3 [facility] Comment on above: Performed By: #### H S TROP, HEPATIC, LIPASE, CBC, BMP #### [facility] [address] [place] [address] [place] Chloride [Moles/Vol] 87 mmol/L Low 98-107 [facility] Comment on above: Performed By: #### H S TROP, HEPATIC, LIPASE, CBC, BMP #### [facility] [address] [place] [address] [place] CO2 [Moles/Vol] 23.2 mmol/L Normal 21.0-31.0 [facility] Comment on above: Performed By: #### H S TROP, HEPATIC, LIPASE, CBC, BMP #### [facility] [address] Creatinine [Mass/Vol] 1.03 mg/dL Normal 0.60-1.20 [facility] Comment on above: Performed By: #### H S TROP, HEPATIC, LIPASE, CBC, BMP #### [facility] [address] Creatinine Clr Calc Pharmacy 35.13 [facility] Comment on above: Performed By: #### H S TROP, HEPATIC, LIPASE, CBC, BMP #### [place] [address] [place] GFR/1.73 sq M.predicted MDRD (S/P/Bld) [Vol rate/Area] 53.284 mL/min/{1.73_m2} [facility] Comment on above: Performed By: #### H S TROP, HEPATIC, LIPASE, CBC, BMP #### [address] Glucose [Mass/Vol] 156 mg/dL High 70-100 [facility] Comment on above: Result Comment: [facility] Glucose Reference Range is dependent on time and content of last meal. Glucose of more than 200 mg/dL in a nonstressed, ambulatory subject supports the diagnosis of Diabetes Mellitus. ADA recommended reference range Performed By: #### H S TROP, HEPATIC, LIPASE, CBC, BMP #### [address] Potassium [Moles/Vol] 3.0 mmol/L Low 3.5-5.1 [facility] Comment on above: Performed By: #### H S TROP, HEPATIC, LIPASE, CBC, BMP #### [place] [address] [place] Sodium [Moles/Vol] 125 mmol/L Low 136-145 [facility] Comment on above: Performed By: #### H S TROP, HEPATIC, LIPASE, CBC, BMP #### [place] [address] [place] Urea nitrogen [Mass/Vol] 12 mg/dL Normal 7-25 [facility] Comment on above: Performed By: #### H S TROP, HEPATIC, LIPASE, CBC, BMP #### [facility] [address] Basophils Auto (Bld) [#/Vol] Ordered By: Camacho Ladd on 08-05-2022 Basophils (Bld) [#/Vol] 0.1 10*3/uL 0.0-0.2 [facility] Basophils/100 WBC Auto (Bld) Ordered By: Camacho Ladd on 08-05-2022 Basophils/100 WBC (Bld) 0.4 % . F [facility] Bilirubin Test strip Ql (U)O rdered By: Camacho Ladd on 08-05-2022 Bilirubin Ql (U) Negative Negative [facility] Bilirubin.direct [Mass/volum e] in Serum or PlasmaOrdered By: Camacho Ladd on 08-05-2022 Bilirubin.direct [Mass/Vol] 0.10 mg/dL 0.03-0.18 [facility] Bilirubin.total [Mass/volume ] in Serum or PlasmaOrdered By: Camacho Ladd on 08-05-2022 Bilirubin [Mass/Vol] 0.7 mg/dL 0.3-1.0 [facility] Calcium [Mass/volume] in Ser um or PlasmaOrdered By: Camacho Ladd on 08-05-2022 Calcium [Mass/Vol] 9.7 mg/dL 8.6-10.3 [facility] Carbon dioxide, total [Moles /volume] in Serum or PlasmaOrdered By: Camacho Ladd on 08-05-2022 CO2 [Moles/Vol] 23.2 mmol/L 21.0-31.0 [facility] Chloride [Moles/volume] in S willa or PlasmaOrdered By: Camacho Ladd on 08-05-2022 Chloride [Moles/Vol] 87 mmol/L 98-107 [facility] Color Auto (U)Ordered By: Ender Ladd on 08-05-2022 Color (U) Yellow Yellow [facility] Complete Blood Count Auto Di ffon 08-05-2022 Basophils (Bld) [#/Vol] 0.1 10*3/uL Normal 0.0-0.2 [facility] Comment on above: Result Comment: PERF ORMED BY: [place] [address] PATHOLOGIST [employer]FFIC CONTROL OPERATOR GOSIA MCADAMS M.D. Performed By: #### H S TROP, HEPATIC, LIPASE, CBC, BMP #### [address] Basophils/100 WBC (Bld) 0.4 % Normal . F [facility] Comment on above: Performed By: #### H S TROP, HEPATIC, LIPASE, CBC, BMP #### [address] Eosinophils (Bld) [#/Vol] 0.1 10*3/uL Normal 0.0-0.45 [facility] Comment on above: Performed By: #### H S TROP, HEPATIC, LIPASE, CBC, BMP #### [address] Eosinophils/100 WBC (Bld) 0.6 % Normal . [facility] Comment on above: Performed By: #### H S TROP, HEPATIC, LIPASE, CBC, BMP #### [address] Erythrocyte distribution width (RBC) [Ratio] 13.6 % Normal 11.9-15.3 [facility] Comment on above: Performed By: #### H S TROP, HEPATIC, LIPASE, CBC, BMP #### [address] Hematocrit (Bld) [Volume fraction] 37.3 % Normal 34.0-46.4 [facility] Comment on above: Performed By: #### H S TROP, HEPATIC, LIPASE, CBC, BMP #### [address] Hemoglobin (Bld) [Mass/Vol] 13.0 g/dL Normal 11.8-15.4 [facility] Comment on above: Performed By: #### H S TROP, HEPATIC, LIPASE, CBC, BMP #### [place] [id number] [place] Lymphocytes (Bld) [#/Vol] 3.1 10*3/uL Normal 1.00-4.8 [facility] Comment on above: Performed By: #### H S TROP, HEPATIC, LIPASE, CBC, BMP #### [facility] [address] [place] [address] Lymphocytes/100 WBC (Bld) 21.9 % Normal . [facility] Comment on above: Performed By: #### H S TROP, HEPATIC, LIPASE, CBC, BMP #### [address] MCH (RBC) [Entitic mass] 31.6 pg Normal 24.7-34.3 [facility] Comment on above: Performed By: #### H S TROP, HEPATIC, LIPASE, CBC, BMP #### [address] MCV (RBC) [Entitic vol] 90.4 fL Normal 80-100 F [facility] Comment on above: Performed By: #### H S TROP, HEPATIC, LIPASE, CBC, BMP #### [address] Mean Corpuscular HGB Conc 35.0 g/dL Normal 32.0-35.0 [facility] Comment on above: Performed By: #### H S TROP, HEPATIC, LIPASE, CBC, BMP #### [address] Monocytes (Bld) [#/Vol] 1.4 10*3/uL High 0.0-0.8 [facility] Comment on above: Performed By: #### H S TROP, HEPATIC, LIPASE, CBC, BMP #### [address] Monocytes/100 WBC (Bld) 20.58 % High 0.00-20.00 [facility] Comment on above: Result Comment: For adults in ED, MDW > 20.0 may be associated with a higher risk of sepsis during the first 12 hrs of hospital admission Performed By: #### H S TROP, HEPATIC, LIPASE, CBC, BMP #### [address] Monocytes/100 WBC (Bld) 9.6 % Normal . [facility] Comment on above: Performed By: #### H S TROP, HEPATIC, LIPASE, CBC, BMP #### [address] Neutrophils (Bld) [#/Vol] 9.6 10*3/uL High 1.8-7.7 [facility] Comment on above: Performed By: #### H S TROP, HEPATIC, LIPASE, CBC, BMP #### [address] Neutrophils/100 WBC (Bld) 67.5 % Normal . [facility] Comment on above: Performed By: #### H S TROP, HEPATIC, LIPASE, CBC, BMP #### [address] NRBC% 0.1 /100{WBC} Normal 0-0.5 [facility] Comment on above: Performed By: #### H S TROP, HEPATIC, LIPASE, CBC, BMP #### [address] Platelet mean volume (Bld) [Entitic vol] 7.2 fL Normal 6.3-10.7 [facility] Comment on above: Performed By: #### H S TROP, HEPATIC, LIPASE, CBC, BMP #### [place] [address] [place] Platelets (Bld) [#/Vol] 500 10*3/uL High 150-450 [facility] Comment on above: Performed By: #### H S TROP, HEPATIC, LIPASE, CBC, BMP #### [address] RBC (Bld) [#/Vol] 4.13 10*6/uL Normal 3.60-5.00 [facility] Comment on above: Performed By: #### H S TROP, HEPATIC, LIPASE, CBC, BMP #### [place] [address] [place] WBC (Bld) [#/Vol] 14.2 10*3/uL High 3.8-11.6 [facility] Comment on above: Performed By: #### H S TROP, HEPATIC, LIPASE, CBC, BMP #### [facility] [address] [place] [id number] [place] Creatinine [Mass/volume] in Serum or PlasmaOrdered By: Camacho Ladd on 08-05-2022 Creatinine [Mass/Vol] 1.03 mg/dL 0.60-1.20 [facility] Dipstick and Microscopicon 0 08-05-2022 Appearance (U) Cloudy Critically abnormal [facility] Comment on above: Order Comment: Name Collection Type:: Clean-Voided Midstream Performed By: #### A DDONUAPLUS #### [facility] [address] Bacteria,Urine None Seen Normal None Seen [facility] Comment on above: Order Comment: Name Collection Type:: Clean-Voided Midstream Performed By: #### A DDONUAPLUS #### [facility] [address] [place] [address] [place] Bilirubin,Urine Negative Normal Negative [facility] Comment on above: Order Comment: Name Collection Type:: Clean-Voided Midstream Performed By: #### A DDONUAPLUS #### [facility] [address] [place] [id number] [place] Color (U) Yellow Normal Yellow [facility] Comment on above: Order Comment: Name Collection Type:: Clean-Voided Midstream Performed By: #### A DDONUAPLUS #### [facility] [address] [place] [id number] [place] Glucose Ql (U) Normal Normal Normal [facility] Comment on above: Order Comment: Name Collection Type:: Clean-Voided Midstream Performed By: #### A DDONUAPLUS #### [facility] [address] [place] [id number] [place] Hyaline Casts,Urine None Seen Normal 0-8 [facility] Comment on above: Order Comment: Name Collection Type:: Clean-Voided Midstream Result Comment: PERF ORMED BY: [place] [address] PATHOLOGIST AIR TRAFFIC CONTROL OPERATOR GOSIA MCADAMS M.D. Performed By: #### A DDONUAPLUS #### [address] Ketones Ql (U) Negative Normal Negative [facility] Comment on above: Order Comment: Name Collection Type:: Clean-Voided Midstream Performed By: #### A DDONUAPLUS #### [address] Leukocyte esterase Test strip Ql (U) 1+ High Negative [facility] Comment on above: Order Comment: Name Collection Type:: Clean-Voided Midstream Performed By: #### A DDONUAPLUS #### [place] [address] [place] Nitrite,Urine Negative Normal Negative [facility] Comment on above: Order Comment: Name Collection Type:: Clean-Voided Midstream Performed By: #### A DDONUAPLUS #### [place] [address] [place] Occult Blood,Urine Negative Normal Negative [facility] Comment on above: Order Comment: Name Collection Type:: Clean-Voided Midstream Result Comment: PERF ORMED BY: [place] [address] PATHOLOGIST AIR TRAFFIC CONTROL OPERATOR GOSIA MCADAMS M.D. Performed By: #### A DDONUAPLUS #### [place] [address] [place] pH (U) 7.0 [pH] Normal 5.0-9.0 [facility] Comment on above: Order Comment: Name Collection Type:: Clean-Voided Midstream Performed By: #### A DDONUAPLUS #### [place] [address] [place] Protein,Urine Negative Normal Negative [facility] Comment on above: Order Comment: Name Collection Type:: Clean-Voided Midstream Performed By: #### A DDONUAPLUS #### [address] [place] [address] [place] RBC LM.HPF (Urine sed) [#/Area] 0 /[HPF] Normal 0-4 [facility] Comment on above: Order Comment: Name Collection Type:: Clean-Voided Midstream Performed By: #### A DDONUAPLUS #### [facility] [address] [place] [address] Specificy [place],Urine 1.009 Normal 1.001-1.030 [facility] Comment on above: Order Comment: Name Collection Type:: Clean-Voided Midstream Performed By: #### A DDONUAPLUS #### [facility] [address] [place] [address] Squamous Epithelial Cell,Urine 0-1 Normal 0-2 [facility] Comment on above: Order Comment: Name Collection Type:: Clean-Voided Midstream Performed By: #### A DDONUAPLUS #### [facility] [address] [place] [address] Urobilinogen,Urine Normal Normal Normal [facility] Comment on above: Order Comment: Name Collection Type:: Clean-Voided Midstream Performed By: #### A DDONUAPLUS #### [facility] [address] [place] [address] [place] WBC,Urine 1-2 Normal 0-4 [facility] Comment on above: Order Comment: Name Collection Type:: Clean-Voided Midstream Performed By: #### A DDONUAPLUS #### [facility] [address] [place] [address] ECG 12 lead ECGon 08-05-2022 ECG 12 lead ECG [facility] [place] [address] [place] [address] Electrocardiograph Report Signed Patient: Hiram Madrid MR#: [id number] : 1935 Acct:[id number] Age/Sex: 86 / F ADM Date: 08/05/22 Loc: ER Room: Type: [facility] ER Attending Dr: Ordering Provider: Camacho [...] branch block Confirmed by Camacho Ladd DO ([id number]) on 08/06/2022 1:49:12 AM Referred By: Electronically Signed By:Camacho Ladd DO Transcribed By: MUS Signed By Camacho Ladd DO [id number] Normal [facility] Eosinophils Auto (Bld) [#/Vo l]Ordered By: Camacho Ladd on 08-05-2022 Eosinophils (Bld) [#/Vol] 0.1 10*3/uL 0.0-0.45 [facility] Eosinophils/100 WBC Auto (Bl d)Ordered By: Camacho Ladd on 08-05-2022 Eosinophils/100 WBC (Bld) 0.6 % . [facility] Erythrocyte distribution wid th Auto (RBC) [Ratio]Ordered By: Camacho Ladd on 08-05-2022 Erythrocyte distribution width (RBC) [Ratio] 13.6 % 11.9-15.3 [facility] Globulin Calc (S) [Mass/Vol] Ordered By: Camacho Ladd on 08-05-2022 Globulin (S) [Mass/Vol] 2.9 g/dL [facility] Glucose [Mass/volume] in Ser um or PlasmaOrdered By: Camacho Ladd on 08-05-2022 Glucose [Mass/Vol] 156 mg/dL 70-100 [facility] Comment on above: ADA recommended refe rence rangeRandom Glucose Reference Range is dependent on time and content of last meal. Glucose of more than 200 mg/dL in a nonstressed, ambulatory subject supports the diagnosis of Diabetes Mellitus. Hematocrit Auto (Bld) [Volum e fraction]Ordered By: Camacho Ladd on 08-05-2022 Hematocrit (Bld) [Volume fraction] 37.3 % 34.0-46.4 [facility] Hemoglobin [Mass/volume] in BloodOrdered By: Camacho Ladd on 08-05-2022 Hemoglobin (Bld) [Mass/Vol] 13.0 g/dL 11.8-15.4 [facility] Hepatic Panelon 08-05-2022 Albumin [Mass/Vol] 4.4 g/dL Normal 3.5-5.7 [facility] Comment on above: Performed By: #### H S TROP, HEPATIC, LIPASE, CBC, BMP #### [facility] [address] Albumin/Globulin [Mass ratio] 1.5 {ratio} Normal [facility] Comment on above: Performed By: #### H S TROP, HEPATIC, LIPASE, CBC, BMP #### [facility] [address] ALP [Catalytic activity/Vol] 61 U/L Normal 34-104 [facility] Comment on above: Performed By: #### H S TROP, HEPATIC, LIPASE, CBC, BMP #### [facility] [address] [place] [address] [place] ALT [Catalytic activity/Vol] 16 U/L Normal 7-52 [facility] Comment on above: Performed By: #### H S TROP, HEPATIC, LIPASE, CBC, BMP #### [facility] [address] [place] [address] [place] AST [Catalytic activity/Vol] 21 U/L Normal 13-39 [facility] Comment on above: Performed By: #### H S TROP, HEPATIC, LIPASE, CBC, BMP #### [facility] [address] [place] [address] [place] Bilirubin [Mass/Vol] 0.7 mg/dL Normal 0.3-1.0 [facility] Comment on above: Performed By: #### H S TROP, HEPATIC, LIPASE, CBC, BMP #### [facility] [address] [place] [address] [place] Bilirubin,Indirect 0.6 mg/dL Normal [facility] Comment on above: Performed By: #### H S TROP, HEPATIC, LIPASE, CBC, BMP #### [facility] [address] [place] [address] [place] Bilirubin.indirect [Mass/Vol] 0.10 mg/dL Normal 0.03-0.18 [facility] Comment on above: Performed By: #### H S TROP, HEPATIC, LIPASE, CBC, BMP #### [facility] [address] Globulin (S) [Mass/Vol] 2.9 g/dL Normal F [facility] Comment on above: Performed By: #### H S TROP, HEPATIC, LIPASE, CBC, BMP #### [facility] [address] Protein [Mass/Vol] 7.3 g/dL Normal 6.4-8.9 [facility] Comment on above: Performed By: #### H S TROP, HEPATIC, LIPASE, CBC, BMP #### [address] Ketones Auto test strip (U) [Mass/Vol]Ordered By: Camacho Ladd on 08-05-2022 Ketones (U) [Mass/Vol] Negative Negative [facility] - UrinalysisOrder ed By: Camacho Ladd on 08-05-2022 Hyaline casts LM Ql (Urine sed) None seen [LPF] 0-8 [facility] Leukocytes [#/volume] correc sofiya for nucleated erythrocytes in Blood by Automated counOrdered By: Camacho Ladd on 08-05-2022 WBC corrected for nucl RBC Auto (Bld) [#/Vol] 14.2 10*3/uL 3.8-11.6 [facility] Lipaseon 08-05-2022 Lipase [Catalytic activity/Vol] 23.0 U/L Normal 11.0-82.0 [facility] Comment on above: Result Comment: PERF ORMED BY: [address] [place] [address] PATHOLOGIST AIR TRAFFIC CONTROL OPERATOR GOSIA MCADAMS M.D. Performed By: #### H S TROP, HEPATIC, LIPASE, CBC, BMP #### [facility] [address] [place] [address] Lipase [Enzymatic activity/v olume] in Serum or PlasmaOrdered By: Camacho Ladd on 08-05-2022 Lipase [Catalytic activity/Vol] 23.0 U/L 11.0-82.0 [facility] Lymphocytes Auto (Bld) [#/Vo l]Ordered By: Camacho Ladd on 08-05-2022 Lymphocytes (Bld) [#/Vol] 3.1 10*3/uL 1.00-4.8 [facility] Lymphocytes/100 WBC Auto (Bl d)Ordered By: Camacho Ladd on 08-05-2022 Lymphocytes/100 WBC (Bld) 21.9 % . [facility] MCH Auto (RBC) [Entitic mass ]Ordered By: Camacho Ladd on 08-05-2022 MCH (RBC) [Entitic mass] 31.6 pg 24.7-34.3 [facility] MCHC Auto (RBC) [Mass/Vol]Or dered By: Camacho Ladd on 08-05-2022 MCHC (RBC) [Mass/Vol] 35.0 g/dL 32.0-35.0 [facility] MCV Auto (RBC) [Entitic vol] Ordered By: Camacho Ladd on 08-05-2022 MCV (RBC) [Entitic vol] 90.4 fL 80-100 F [facility] Monocyte distribution width [Entitic volume] in Blood by AutomatedOrdered By: Camacho Ladd on 08-05-2022 Monocyte distribution width Auto (Bld) [Entitic vol] 20.58 % 0.00-20.00 [facility] Comment on above: For adults in ED, MD W > 20.0 may be associated with a higher risk of sepsis during the first 12 hrs of hospital admission Monocytes Auto (Bld) [#/Vol] Ordered By: Camacho Ladd on 08-05-2022 Monocytes (Bld) [#/Vol] 1.4 10*3/uL 0.0-0.8 [facility] Monocytes/100 WBC Auto (Bld) Ordered By: Camacho Ladd on 08-05-2022 Monocytes/100 WBC (Bld) 9.6 % . [facility] Neutrophils Auto (Bld) [#/Vo l]Ordered By: Camacho Ladd on 08-05-2022 Neutrophils (Bld) [#/Vol] 9.6 10*3/uL 1.8-7.7 [facility] Neutrophils/100 WBC Auto (Bl d)Ordered By: Camacho Ladd on 08-05-2022 Neutrophils/100 WBC (Bld) 67.5 % . [facility] Nitrite Test strip Ql (U)Ord ered By: Camacho Ladd on 08-05-2022 Nitrite Ql (U) Negative Negative [facility] No Panel InformationOrdered By: Camacho Ladd on 08-05-2022 Estimated GFR (CKD-EPI) 53.284 mL/Min [facility] Creatinine Clearance (Chem 35.13 [facility] Nucleated erythrocytes [Pres ence] in Blood by Automated countOrdered By: Camacho Ladd on 08-05-2022 Nucleated RBC Auto Ql (Bld) 0.1 /100{WBC} 0-0.5 [facility] Platelet mean volume Auto (B ld) [Entitic vol]Ordered By: Camacho Ladd on 08-05-2022 Platelet mean volume (Bld) [Entitic vol] 7.2 fL 6.3-10.7 [facility] Platelets Auto (Bld) [#/Vol] Ordered By: Camacho Ladd on 08-05-2022 Platelets (Bld) [#/Vol] 500 10*3/uL 150-450 [facility] Potassium [Moles/volume] in Serum or PlasmaOrdered By: Camacho Ladd on 08-05-2022 Potassium [Moles/Vol] 3.0 mmol/L 3.5-5.1 [facility] Protein Auto test strip (U) [Mass/Vol]Ordered By: Camacho Ladd on 08-05-2022 Protein (U) [Mass/Vol] Negative Negative [facility] Protein [Mass/volume] in Ser um or PlasmaOrdered By: Camacho Ladd on 08-05-2022 Protein [Mass/Vol] 7.3 g/dL 6.4-8.9 [facility] RBC Auto (Bld) [#/Vol]Ordere d By: Camacho Ladd on 06-16-2023 RBC (Bld) [#/Vol] 4.13 10*6/uL 3.60-5.00 [facility] Serum or plasma albumin/glob ulin mass ratioOrdered By: Camacho Ladd on 08-05-2022 Albumin/Globulin [Mass ratio] 1.5 {ratio} [facility] Serum or plasma anion gap de terminationOrdered By: Camacho Ladd on 08-05-2022 Anion gap [Moles/Vol] 17.8 mmol/L 6.0-[facility] Serum or plasma non-glucuron idated bilirubin measurement (mass/volume)Ordered By: Camacho Ladd on 08-05-2022 Bilirubin.indirect [Mass/Vol] 0.6 mg/dL [facility] Sodium [Moles/volume] in Ser um or PlasmaOrdered By: Camacho Ladd on 08-05-2022 Sodium [Moles/Vol] 125 mmol/L 136-145 [facility] Specific gravity Auto test s trip (U) [Rel density]Ordered By: Camacho Ladd on 08-05-2022 Specific gravity (U) [Rel density] 1.009 1.001-1.030 [facility] Squamous epithelial cells de tection in urine sediment by light microscopyOrdered By: Camacho Ladd on 08-05-2022 Epithelial cells.squamous LM Ql (Urine sed) 0-1 [HPF] 0-2 [facility] Troponin I High Sensitivityo n 08-05-2022 Troponin I High Sensitivity 7.7 pg/mL Normal 0.0-15.0 [facility] Comment on above: Result Comment: PERF ORMED BY: [place] [address] PATHOLOGIST AIR TRAFFIC CONTROL OPERATOR GOSIA MCADAMS M.D. Performed By: #### H S TROP, HEPATIC, LIPASE, CBC, BMP #### [address] Troponin I.cardiac [Mass/vol ume] in Serum or Plasma by Detection limit <= 0.01 ng/Ordered By: Camacho Ladd on 08-05-2022 Troponin I.cardiac DL <= 0.01 ng/mL [Mass/Vol] 7.7 pg/mL 0.0-15.0 [facility] Urea nitrogen [Mass/volume] in Serum or PlasmaOrdered By: Camacho Ladd on 08-05-2022 Urea nitrogen [Mass/Vol] 12 mg/dL 7-25 [facility] Urine bacteria detection by automated methodOrdered By: Camacho Ladd on 08-05-2022 Bacteria Auto Ql (U) None seen None Seen [facility] Urine clarity by refractomet ry automatedOrdered By: Camacho Ladd on 08-05-2022 Clarity Refractometry automated (U) Cloudy [facility] Urine glucose measurement by automated test strip (mass/volume)Ordered By: Camacho Ladd on 08-05-2022 Glucose Auto test strip (U) [Mass/Vol] Normal mg/dL Normal [facility] Urine hemoglobin detection b y automated test stripOrdered By: Camacho Ladd on 08-05-2022 Hemoglobin Auto test strip Ql (U) Negative Negative [facility] Urine leukocyte esterase det ection by automated test stripOrdered By: Camacho Ladd on 08-05-2022 Leukocyte esterase Auto test strip Ql (U) 1+ Negative [facility] Urobilinogen Auto test strip (U) [Mass/Vol]Ordered By: Camacho Ladd on 08-05-2022 Urobilinogen (U) [Mass/Vol] Normal mg/dL Normal [facility] WBC Auto (Bld) [#/Vol]Ordere d By: Camacho Ladd on 08-05-2022 WBC (Bld) [#/Vol] 14.2 10*3/uL 3.8-11.6 [facility] pH Auto test strip (U)Ordere d By: Camacho Ladd on 08-05-2022 pH (U) 7.0 [pH] 5.0-9.0 [facility] BNPon 06-13-2022 Natriuretic peptide B (Bld) [Mass/Vol] 142.0 pg/mL Normal <=1,800.0 [facility] Comment on above: Performed By: #### T , BMP #### [facility] [address] [place] [address] Dr. Tahsa Dodson CBC AUTO DIFFon 06-13-2022 BASO # 0.1 103/ul Normal 0.0-0.1 [facility] Comment on above: Performed By: #### T SH, BMP #### [facility] [address] [place] [address] Dr. Tasha Dodson Basophils/100 WBC (Bld) 1.0 % Normal 0.2-2.0 [facility] Comment on above: Performed By: #### T SH, BMP #### [facility] [address] [place] [address] Dr. Tasha Dodson EO # 0.3 103/ul Normal 0.0-0.7 [facility] Comment on above: Performed By: #### T SH, BMP #### [facility] [address] [place] [address] Dr. Tasha Dodson Eosinophils/100 WBC (Bld) 2.6 % Normal 0.9-7.0 [facility] Comment on above: Performed By: #### T SH, BMP #### [facility] [address] [place] [address] Dr. Tasha Dodson Erythrocyte distribution width (RBC) [Ratio] 13.4 % Normal 11.0-15.0 [facility] Comment on above: Performed By: #### T SH, BMP #### [facility] [address] [place] [address] Dr. Tasha Dodson Hematocrit (Bld) [Volume fraction] 39.5 % Normal 36.0-48.0 [facility] Comment on above: Performed By: #### T SH, BMP #### [facility] [address] [place] [address] Dr. Tasha Dodson Hemoglobin (Bld) [Mass/Vol] 13.1 g/dL Normal 12.0-16.0 [facility] Comment on above: Performed By: #### T SH, BMP #### [facility] [address] [place] [address] Dr. Tasha Dodson IG # 0.07 10e3/ul Critically high 0.00-0.03 [facility] Comment on above: Performed By: #### T SH, BMP #### [facility] [address] [address] [address] Tasha Dodson IG % 0.6 % Critically high 0.0-0.5 [facility] Comment on above: Performed By: #### T SH, BMP #### [facility] [address] [place] [address] [address] Tasha Dodson LYMPH # 2.5 103/ul Normal 1.2-3.8 [facility] Comment on above: Performed By: #### T SH, BMP #### [facility] [address] [place] [address] [address] Tasha Dodson Lymphocytes/100 WBC (Bld) 22.9 % Normal 20.5-60.0 [facility] Comment on above: Performed By: #### T SH, BMP #### [facility] [address] [address] [address] Tasha Dodson MANUAL DIFF REQ NO Normal [facility] Comment on above: Performed By: #### T SH, BMP #### [facility] [address] [address] [address] Tasha Dodson MCH (RBC) [Entitic mass] 30.7 pg Normal 26.7-34.0 [facility] Comment on above: Performed By: #### T SH, BMP #### [facility] [address] [address] [address] Tasha Dodson MCHC (RBC) [Mass/Vol] 33.2 g/dL Normal 29.9-35.2 [facility] Comment on above: Performed By: #### T SH, BMP #### [facility] [address] [address] [address] Tasha Dodson MCV (RBC) [Entitic vol] 92.5 fL Normal 81.0-99.0 [facility] Comment on above: Performed By: #### T SH, BMP #### [facility] [address] [address] [address] Tasha Dodson MONO # 0.8 103/ul Normal 0.3-0.8 [facility] Comment on above: Performed By: #### T SH, BMP #### [facility] [address] [address] [address] Tasha Dodson Monocytes/100 WBC (Bld) 7.0 % Normal 1.7-12.0 [facility] Comment on above: Performed By: #### T SH, BMP #### [facility] [address] [place] [address] Dr. Tasha Dodson NEUT # 7.2 103/ul Critically high 1.4-6.5 [facility] Comment on above: Performed By: #### T SH, BMP #### [facility] [address] [place] [address] Dr. Tasha Dodson Neutrophils/100 WBC (Bld) 65.9 % Normal 43.0-75.0 [facility] Comment on above: Performed By: #### T SH, BMP #### [facility] [address] [place] [address] Dr. Tasha Dodson Platelet mean volume (Bld) [Entitic vol] 8.0 fL Critically low 9.5-13.5 [facility] Comment on above: Performed By: #### T SH, BMP #### [facility] [address] [place] [address] Dr. Tasha Dodson PLT 449 103/ul Normal 150-450 [facility] Comment on above: Performed By: #### T SH, BMP #### [facility] [address] [place] [address] Dr. Tasha Dodson RBC 4.27 106/ul Normal 4.20-5.40 [facility] Comment on above: Performed By: #### T SH, BMP #### [facility] [address] [place] [address] Dr. Tasha Dodson WBC 10.9 103/ul Normal 4.0-11.0 [facility] Comment on above: Performed By: #### T SH, BMP #### [facility] [address] [place] [address] Dr. Tasha Dodson FREE THYROXINE INDEX T7on FTI 3.67 Normal 1.30-4.50 [facility] Comment on above: Performed By: #### T SH, BMP #### [facility] [address] [place] [address] Dr. Tasha Dodson T3U 36.0 % Normal 30.0-39.0 [facility] Comment on above: Performed By: #### T SH, BMP #### [facility] [address] [place] [address] Dr. Tasha Dodson T4 [Mass/Vol] 10.20 ug/dL Normal 4.80-13.90 [facility] Comment on above: Performed By: #### T SH, BMP #### [facility] [address] [place] [address] Dr. Tasha Dodson PROF CHEM 8 (BAS METB)on Anion gap [Moles/Vol] 13.8 mmol/L Normal [facility] Comment on above: Performed By: #### T SH, BMP #### [facility] [address] [place] [address] Dr. Tasha Dodson Calcium [Mass/Vol] 9.8 mg/dL Normal 8.5-10.1 [facility] Comment on above: Performed By: #### T SH, BMP #### [facility] [address] [place] [address] Dr. Tasha Dodson Chloride [Moles/Vol] 95 mmol/L Critically low 98-107 [facility] Comment on above: Performed By: #### T SH, BMP #### [facility] [address] [place] [address] Dr. Tasha Dodson CO2 [Moles/Vol] 30.5 mmol/L Normal 21.0-32.0 [facility] Comment on above: Performed By: #### T SH, BMP #### [facility] [address] [place] [address] Dr. Tasha Dodson Creatinine [Mass/Vol] 0.78 mg/dL Normal 0.55-1.02 [facility] Comment on above: Performed By: #### T SH, BMP #### [facility] [address] [place] [address] Dr. Tasha Dodson EGFR-AF CITIZEN [place] >60 Normal >=60 [facility] Comment on above: Performed By: #### T SH, BMP #### [facility] [address] [place] [address] Dr. Tasha Dodson EGFR-NON AF CITIZEN OF [place] >60 Normal >=60 [facility] Comment on above: Performed By: #### T SH, BMP #### [facility] [address] [place] [address] Dr. Tasha Dodson Glucose [Mass/Vol] 108 mg/dL Critically high 74-106 [facility] Comment on above: Performed By: #### T SH, BMP #### [facility] [address] [place] [address] Dr. Tasha Dodson Potassium [Moles/Vol] 3.3 mmol/L Critically low 3.5-5.1 [facility] Comment on above: Performed By: #### T SH, BMP #### [facility] [address] [place] [address] Dr. Tasha Dodson Sodium [Moles/Vol] 136 mmol/L Normal 136-145 [facility] Comment on above: Performed By: #### T SH, BMP #### [facility] [address] [place] [address] Dr. Tasha Dodson Urea nitrogen [Mass/Vol] 11.0 mg/dL Normal 7.0-18.0 [facility] Comment on above: Performed By: #### T SH, BMP #### [facility] [address] [place] [address] Dr. Tasha Dodson Urea nitrogen/Creatinine [Mass ratio] 14.1 mg/mg Normal [facility] Comment on above: Performed By: #### T SH, BMP #### [facility] [address] [place] [address] Dr. Tasha Dodson TSHon 06-13-2022 TSH 2.583 uIU/mL Normal 0.358-3.740 [facility] Comment on above: Performed By: #### T SH, BMP #### [facility] [address] [place] [address] Dr. Tasha Dodson UA (CLEAN/CATCH) INTERACTIVE ART DIRECTOR/MICRO I F IND.on 06-13-2022 Bilirubin Ql (U) Negative Normal NEGATIVE [facility] Comment on above: Performed By: #### T SH, BMP #### [facility] [address] [place] [address] Dr. Tasha Dodson Clarity (U) CLEAR Normal CLEAR [facility] Comment on above: Performed By: #### T SH, BMP #### [facility] [address] [place] [address] Dr. Tasha Dodson Color (U) LT. YELLOW Normal YELLOW [facility] Comment on above: Performed By: #### T SH, BMP #### [facility] [address] [place] [address] Dr. Tasha Dodson Glucose Ql (U) Negative Normal NEGATIVE [facility] Comment on above: Performed By: #### T SH, BMP #### [facility] [address] [place] [address] Dr. Tasha Dodson Hemoglobin Ql (U) Negative Normal NEGATIVE [facility] Comment on above: Performed By: #### T SH, BMP #### [facility] [address] [place] [address] Dr. Tasha Dodson Ketones Ql (U) Negative Normal NEGATIVE [facility] Comment on above: Performed By: #### T SH, BMP #### [facility] [address] [place] [address] Dr. Tasha Dodson LEUKOCYTES Negative Normal NEGATIVE [facility] Comment on above: Performed By: #### T SH, BMP #### [facility] [address] [place] [address] Dr. Tasha Dodson Nitrite Ql (U) Negative Normal NEGATIVE [facility] Comment on above: Performed By: #### T SH, BMP #### [facility] [address] [place] [address] Dr. Tasha Dodson pH (U) 7.0 [pH] Normal 5-9 [facility] Comment on above: Performed By: #### T SH, BMP #### [facility] [address] [place] [address] Dr. Tasha Dodson SPEC GRAVITY 1.010 Normal 1.005-<=1.0 25 [facility] Comment on above: Performed By: #### T SH, BMP #### [facility] [address] [place] [address] Dr. Tasha Dodson UA PROTEIN Negative Normal NEGATIVE/ TRACE [facility] Comment on above: Performed By: #### T SH, BMP #### [facility] [address] [place] [address] Dr. Tasha Dodson UR MICRO IND NOT INDICATED Normal [facility] Comment on above: Performed By: #### T SH, BMP #### [facility] [address] [place] [address] Dr. Tasha Dodson Urobilinogen Qn (U) 0.2 {Juan'U}/dL Normal 0.2 - 1. 0 [facility] Comment on above: Performed By: #### T JESI, BMP #### [facility] [address] [place] [address] Dr. Tasha Dodson ECHOCARDIO M/2D COMPLETEon 0 04-18-2022 ECHOCARDIO M/2D COMPLETE Patient: HIRAM MADRID Exam Date: 04/18/2022 : 1935 Gender:F Ordering : DR VALERIE DARDEN M.D. Admission #: [id number] Family : DR ADDY DANIELS . Order #: [id number] CLICK HERE TO VIEW EXAM ECHOCARDIOGRAM REPORT [...] Barragan M.D. on 04/19/2022 at 18:55 Normal [facility] Office Visiton 04-04-2022 Follow-up visit [id number] Hiram Madrid 1935 F Date Provider Department Center 04/04/2022 Yazmin-VALERIE DARDEN [facility] Family History Problem Relation Age of Onset Hypertension Mother Lupus Mother Coronary artery disease Mother Heart attack Mother Hypertension Father Aneurysm Father Coronary artery disease Father Hypertension Sister Lupus Sister Family Status - Relation Status Age at Mother Father Sister Level of Service:75121 DE OFFICE/OUTPATIENT ESTABLISHED MOD MDM 30-39 MIN Reason for Visit and Comments: Hyperlipidemia [182] Hypertension [436241] carotid artery stenosis [Other] 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 Tasha Dodson Basophils/100 WBC (Bld) 0.6 % Normal 0.2-2.0 T [facility] Comment on above: Performed By: #### C BC #### [facility] [address] [address] [address] Tasha Dodson EO # 0.1 103/ul Normal 0.0-0.7 [facility] Comment on above: Performed By: #### C BC #### [facility] [address] [place] [address] Dr. Tasha Dodson Eosinophils/100 WBC (Bld) 0.9 % Normal 0.9-7.0 [facility] Comment on above: Performed By: #### C BC #### [facility] [address] [place] [address] Dr. Tasha Dodson Erythrocyte distribution width (RBC) [Ratio] 13.0 % Normal 11.0-15.0 [facility] Comment on above: Performed By: #### C BC #### [facility] [address] [place] [address] Dr. Tasha Dodson Hematocrit (Bld) [Volume fraction] 38.5 % Normal 36.0-48.0 [facility] Comment on above: Performed By: #### C BC #### [facility] [address] [place] [address] Dr. Tasha Dodson Hemoglobin (Bld) [Mass/Vol] 13.4 g/dL Normal 12.0-16.0 [facility] Comment on above: Performed By: #### C BC #### [facility] [address] [place] [address] Dr. Tasha Dodson IG # 0.07 10e3/ul Critically high 0.00-0.03 [facility] Comment on above: Performed By: #### C BC #### [facility] [address] [place] [address] Dr. Tasha Dodson IG % 0.5 % Normal 0.0-0.5 [facility] Comment on above: Performed By: #### C BC #### [facility] [address] [place] [address] Dr. Tasha Dodson LYMPH # 2.8 103/ul Normal 1.2-3.8 [facility] Comment on above: Performed By: #### C BC #### [facility] [address] [place] [address] Dr. Tasha Dodson Lymphocytes/100 WBC (Bld) 20.5 % Normal 20.5-60.0 [facility] Comment on above: Performed By: #### C BC #### [facility] [address] [place] [address] Dr. Tasha Dodson MANUAL DIFF REQ NO Normal [facility] Comment on above: Performed By: #### C BC #### [facility] [address] [place] [address] Dr. Tasha Dodson MCH (RBC) [Entitic mass] 30.7 pg Normal 26.7-34.0 [facility] Comment on above: Performed By: #### C BC #### [facility] [address] [place] [address] Dr. Tasha Dodson MCHC (RBC) [Mass/Vol] 34.8 g/dL Normal 29.9-35.2 [facility] Comment on above: Performed By: #### C BC #### [facility] [address] [place] [address] Dr. Tasha Dodson MCV (RBC) [Entitic vol] 88.3 fL Normal 81.0-99.0 [facility] Comment on above: Performed By: #### C BC #### [facility] [address] [place] [address] Dr. Tasha Dodson MONO # 1.0 103/ul Critically high 0.3-0.8 [facility] Comment on above: Performed By: #### C BC #### [facility] [address] [place] [address] Dr. Tasha Dodson Monocytes/100 WBC (Bld) 7.4 % Normal 1.7-12.0 [facility] Comment on above: Performed By: #### C BC #### [facility] [address] [place] [address] Dr. Tasha Dodson NEUT # 9.5 103/ul Critically high 1.4-6.5 [facility] Comment on above: Performed By: #### C BC #### [facility] [address] [place] [address] Dr. Tasha Dodson Neutrophils/100 WBC (Bld) 70.1 % Normal 43.0-75.0 [facility] Comment on above: Performed By: #### C BC #### [facility] [address] [address] [address] Tasha Dodson Platelet mean volume (Bld) [Entitic vol] 8.0 fL Critically low 9.5-13.5 [facility] Comment on above: Performed By: #### C BC #### [facility] [address] [place] [address] Dr. Tasha Dodson PLT 492 103/ul Critically high 150-450 [facility] Comment on above: Performed By: #### C BC #### [facility] [address] [place] [address] Dr. Tasha Dodson RBC 4.36 106/ul Normal 4.20-5.40 [facility] Comment on above: Performed By: #### C BC #### [facility] [address] [place] [address] Dr. Tasha Dodson WBC 13.5 103/ul Critically high 4.0-11.0 [facility] Comment on above: Performed By: #### C BC #### [facility] [address] [place] [address] Dr. Tasha Dodson PROF 14(COMP METB)on 01-04- 022 Albumin [Mass/Vol] 3.8 g/dL Normal 3.4-5.0 [facility] Comment on above: Performed By: #### T SH, BMP #### [facility] [address] [place] [address] Dr. Tasha Dodson Albumin/Globulin [Mass ratio] 0.9 {ratio} Normal [facility] Comment on above: Performed By: #### T SH, BMP #### [facility] [address] [place] [address] Dr. Tasha Dodson ALP [Catalytic activity/Vol] 60 U/L Normal 46-116 [facility] Comment on above: Performed By: #### T SH, BMP #### [facility] [address] [place] [address] Dr. Tasha Dodson ALT [Catalytic activity/Vol] 26 U/L Normal 14-59 [facility] Comment on above: Performed By: #### T SH, BMP #### [facility] [address] [address] [address] Tasha Dodson Anion gap [Moles/Vol] 8.4 mmol/L Normal [facility] Comment on above: Performed By: #### T SH, BMP #### [facility] [address] [address] [address] Tasha Dodson AST [Catalytic activity/Vol] 19 U/L Normal 15-37 [facility] Comment on above: Performed By: #### T SH, BMP #### [facility] [address] [place] [address] Dr. Tasha Dodson Bilirubin [Mass/Vol] 0.4 mg/dL Normal 0.2-1.0 [facility] Comment on above: Performed By: #### T SH, BMP #### [facility] [address] [place] [address] Dr. Tasha Dodson Calcium [Mass/Vol] 10.1 mg/dL Normal 8.5-10.1 [facility] Comment on above: Performed By: #### T SH, BMP #### [facility] [address] [place] [address] Dr. Tasha Dodson Chloride [Moles/Vol] 92 mmol/L Critically low 98-107 [facility] Comment on above: Performed By: #### T SH, BMP #### [facility] [address] [place] [address] Dr. Tasha Dodson CO2 [Moles/Vol] 33.8 mmol/L Critically high 21.0-32.0 [facility] Comment on above: Performed By: #### T SH, BMP #### [facility] [address] [place] [address] Dr. Tasha Dodson Creatinine [Mass/Vol] 0.67 mg/dL Normal 0.55-1.02 [facility] Comment on above: Performed By: #### T SH, BMP #### [facility] [address] [place] [address] Dr. Tasha Dodson EGFR-AF [place] >60 Normal >=60 [facility] Comment on above: Performed By: #### T SH, BMP #### [facility] [address] [address] [address] Tasha Dodson EGFR-NON AF [place]IZ[place] >60 Normal >=60 [facility] Comment on above: Performed By: #### T SH, BMP #### [facility] [address] [address] [address] Tasha Dodson Globulin (S) [Mass/Vol] 4.1 g/dL Normal [facility] Comment on above: Performed By: #### T SH, BMP #### [facility] [address] [place] [address] Dr. Tasha Dodson Glucose [Mass/Vol] 106 mg/dL Normal 74-106 [facility] Comment on above: Performed By: #### T SH, BMP #### [facility] [address] [place] [address] Dr. Tasha Dodson Potassium [Moles/Vol] 3.2 mmol/L Critically low 3.5-5.1 [facility] Comment on above: Performed By: #### T JESI, BMP #### [facility] [address] [place] [address] Dr. Tasha Dodson Protein [Mass/Vol] 7.9 g/dL Normal 6.4-8.2 [facility] Comment on above: Performed By: #### T JESI, BMP #### [facility] [address] [place] [address] Dr. Tasha Dodson Sodium [Moles/Vol] 131 mmol/L Critically low 136-145 [facility] Comment on above: Performed By: #### T SH, BMP #### [facility] [address] [place] [address] Dr. Tasha Dodson Urea nitrogen [Mass/Vol] 10.0 mg/dL Normal 7.0-18.0 [facility] Comment on above: Performed By: #### T SH, BMP #### [facility] [address] [place] [address] Dr. Tasha Dodson Urea nitrogen/Creatinine [Mass ratio] 14.9 mg/mg Normal [facility] Comment on above: Performed By: #### T JESI, BMP #### [facility] [address] [place] [address] Dr. Tasha Dodson CBC AUTO DIFFon 12-29-2021 BASO # 0.1 103/ul Normal 0.0-0.1 [facility] Comment on above: Performed By: #### C BC #### [facility] [address] [place] [address] Dr. Tasha Dodson Basophils/100 WBC (Bld) 0.5 % Normal 0.2-2.0 [facility] Comment on above: Performed By: #### C BC #### [facility] [address] [place] [address] Dr. Tasha Dodson EO # 0.1 103/ul Normal 0.0-0.7 [facility] Comment on above: Performed By: #### C BC #### [facility] [address] [place] [address] Dr. Tasha Dodson Eosinophils/100 WBC (Bld) 0.4 % Critically low 0.9-7.0 [facility] Comment on above: Performed By: #### C BC #### [facility] [address] [place] [address] Dr. Tasha Dodson Erythrocyte distribution width (RBC) [Ratio] 13.0 % Normal 11.0-15.0 [facility] Comment on above: Performed By: #### C BC #### [facility] [address] [place] [address] Dr. Tasha Dodson Hematocrit (Bld) [Volume fraction] 34.0 % Critically low 36.0-48.0 [facility] Comment on above: Performed By: #### C BC #### [facility] [address] [place] [address] Dr. Tasha Dodson Hemoglobin (Bld) [Mass/Vol] 12.0 g/dL Normal 12.0-16.0 [facility] Comment on above: Performed By: #### C BC #### [facility] [address] [place] [address] Dr. Tasha Dodson IG # 0.06 10e3/ul Critically high 0.00-0.03 [facility] Comment on above: Performed By: #### C BC #### [facility] [address] [address] [address] Tasha Dodson IG % 0.4 % Normal 0.0-0.5 [facility] Comment on above: Performed By: #### C BC #### [facility] [address] [place] [address] Dr. Tasha Dodson LYMPH # 2.5 103/ul Normal 1.2-3.8 [facility] Comment on above: Performed By: #### C BC #### [facility] [address] [place] [address] Dr. Tasha Dodson Lymphocytes/100 WBC (Bld) 17.4 % Critically low 20.5-60.0 [facility] Comment on above: Performed By: #### C BC #### [facility] [address] [place] [address] Dr. Tasha Dodson MANUAL DIFF REQ NO Normal [facility] Comment on above: Performed By: #### C BC #### [facility] [address] [place] [address] Dr. Tasha Dodson MCH (RBC) [Entitic mass] 31.0 pg Normal 26.7-34.0 [facility] Comment on above: Performed By: #### C BC #### [facility] [address] [place] [address] Dr. Tasha Dodson MCHC (RBC) [Mass/Vol] 35.3 g/dL Critically high 29.9-35.2 [facility] Comment on above: Performed By: #### C BC #### [facility] [address] [place] [address] Dr. Tasha Dodson MCV (RBC) [Entitic vol] 87.9 fL Normal 81.0-99.0 [facility] Comment on above: Performed By: #### C BC #### [facility] [address] [place] [address] Dr. Tasha Dodson MONO # 1.0 103/ul Critically high 0.3-0.8 [facility] Comment on above: Performed By: #### C BC #### [facility] [address] [address] [address] Tasha Dodson Monocytes/100 WBC (Bld) 6.9 % Normal 1.7-12.0 [facility] Comment on above: Performed By: #### C BC #### [facility] [address] [address] [address] Tasha Dodson NEUT # 10.8 103/ul Critically high 1.4-6.5 [facility] Comment on above: Performed By: #### C BC #### [facility] [address] [address] [address] Tasha Dodson Neutrophils/100 WBC (Bld) 74.4 % Normal 43.0-75.0 [facility] Comment on above: Performed By: #### C BC #### [facility] [address] [place] [address] Dr. Tasha Dodson Platelet mean volume (Bld) [Entitic vol] 8.4 fL Critically low 9.5-13.5 [facility] Comment on above: Performed By: #### C BC #### [facility] [address] [place] [address] Dr. Tasha Dodson PLT 370 103/ul Normal 150-450 [facility] Comment on above: Performed By: #### C BC #### [facility] [address] [place] [address] Dr. Tasha Dodson RBC 3.87 106/ul Critically low 4.20-5.40 [facility] Comment on above: Performed By: #### C BC #### [facility] [address] [place] [address] Dr. Tasha Dodson WBC 14.5 103/ul Critically high 4.0-11.0 [facility] Comment on above: Performed By: #### C BC #### [facility] [address] [place] [address] Dr. Tasha Dodson PROF 14(COMP METB)on 022 Albumin [Mass/Vol] 2.8 g/dL Critically low 3.4-5.0 [facility] Comment on above: Performed By: #### T SH, BMP #### [facility] [address] [place] [address] Dr. Tasha Dodson Albumin/Globulin [Mass ratio] 0.9 {ratio} Normal [facility] Comment on above: Performed By: #### T SH, BMP #### [facility] [address] [place] [address] Dr. Tasha Dodson ALP [Catalytic activity/Vol] 51 U/L Normal 46-116 [facility] Comment on above: Performed By: #### T SH, BMP #### [facility] [address] [address] [address] Tasha Dodson ALT [Catalytic activity/Vol] 15 U/L Normal 14-59 [facility] Comment on above: Performed By: #### T SH, BMP #### [facility] [address] [place] [address] Dr. Tasha Dodson Anion gap [Moles/Vol] 9.7 mmol/L Normal [facility] Comment on above: Performed By: #### T SH, BMP #### [facility] [address] [place] [address] Dr. Tasha Dodson AST [Catalytic activity/Vol] 15 U/L Normal 15-37 [facility] Comment on above: Performed By: #### T SH, BMP #### [facility] [address] [place] [address] Dr. Tasha Dodson Bilirubin [Mass/Vol] 0.4 mg/dL Normal 0.2-1.0 [facility] Comment on above: Performed By: #### T SH, BMP #### [facility] [address] [place] [address] Dr. Tasha Dodson Calcium [Mass/Vol] 8.6 mg/dL Normal 8.5-10.1 [facility] Comment on above: Performed By: #### T SH, BMP #### [facility] [address] [place] [address] Dr. Tasha Dodson Chloride [Moles/Vol] 97 mmol/L Critically low 98-107 [facility] Comment on above: Performed By: #### T SH, BMP #### [facility] [address] [address] [address] Tasha Dodson CO2 [Moles/Vol] 25.8 mmol/L Normal 21.0-32.0 [facility] Comment on above: Performed By: #### T SH, BMP #### [facility] [address] [address] [address] Tasha Dodson Creatinine [Mass/Vol] 0.52 mg/dL Critically low 0.55-1.02 [facility] Comment on above: Performed By: #### T SH, BMP #### [facility] [address] [place] [address] Dr. Tasha Dodson EGFR-AF [place]IZ[place] >60 Normal >=60 [facility] Comment on above: Performed By: #### T SH, BMP #### [facility] [address] [place] [address] Dr. Tasha Dodson EGFR-NON AF [place] >60 Normal >=60 [facility] Comment on above: Performed By: #### T SH, BMP #### [facility] [address] [place] [address] Dr. Tasha Dodson Globulin (S) [Mass/Vol] 3.2 g/dL Normal [facility] Comment on above: Performed By: #### T SH, BMP #### [facility] [address] [place] [address] Dr. Tasha Dodson Glucose [Mass/Vol] 117 mg/dL Critically high 74-106 [facility] Comment on above: Performed By: #### T SH, BMP #### [facility] [address] [place] [address] Dr. Tasha Dodson Potassium [Moles/Vol] 3.5 mmol/L Normal 3.5-5.1 [facility] Comment on above: Performed By: #### T SH, BMP #### [facility] [address] [place] [address] Dr. Tasha Dodson Protein [Mass/Vol] 6.0 g/dL Critically low 6.4-8.2 [facility] Comment on above: Performed By: #### T SH, BMP #### [facility] [address] [place] [address] Dr. Tasha Dodson Sodium [Moles/Vol] 129 mmol/L Critically low 136-145 [facility] Comment on above: Performed By: #### T JESI, BMP #### [facility] [address] [place] [address] Dr. Tasha Dodson Urea nitrogen [Mass/Vol] 4.0 mg/dL Critically low 7.0-18.0 [facility] Comment on above: Performed By: #### T JESI, BMP #### [facility] [address] [place] [address] Dr. Tasha Dodson Urea nitrogen/Creatinine [Mass ratio] 7.7 mg/mg Normal [facility] Comment on above: Performed By: #### T JESI, BMP #### [facility] [address] [place] [address] Dr. Tasha Dodson CBC AUTO DIFFon 12-28-2021 BASO # 0.1 103/ul Normal 0.0-0.1 [facility] Comment on above: Performed By: #### C BC #### [facility] [address] [place] [address] Dr. Tasha Dodson Basophils/100 WBC (Bld) 0.4 % Normal 0.2-2.0 [facility] Comment on above: Performed By: #### C BC #### [facility] [address] [place] [address] Dr. Tasha Dodson EO # 0.1 103/ul Normal 0.0-0.7 [facility] Comment on above: Performed By: #### C BC #### [facility] [address] [place] [address] Dr. Tasha Dodson Eosinophils/100 WBC (Bld) 0.4 % Critically low 0.9-7.0 [facility] Comment on above: Performed By: #### C BC #### [facility] [address] [place] [address] Dr. Tasha Dodson Erythrocyte distribution width (RBC) [Ratio] 12.9 % Normal 11.0-15.0 [facility] Comment on above: Performed By: #### C BC #### [facility] [address] [place] [address] Dr. Tasha Dodson Hematocrit (Bld) [Volume fraction] 34.2 % Critically low 36.0-48.0 [facility] Comment on above: Performed By: #### C BC #### [facility] [address] [place] [address] Dr. Tasha Dodson Hemoglobin (Bld) [Mass/Vol] 12.4 g/dL Normal 12.0-16.0 [facility] Comment on above: Performed By: #### C BC #### [facility] [address] [place] [address] Dr. Tasha Dodson IG # 0.09 10e3/ul Critically high 0.00-0.03 [facility] Comment on above: Performed By: #### C BC #### [facility] [address] [place] [address] Dr. Tasha Dodson IG % 0.6 % Critically high 0.0-0.5 [facility] Comment on above: Performed By: #### C BC #### [facility] [address] [place] [address] Dr. Tasha Dodson LYMPH # 2.2 103/ul Normal 1.2-3.8 [facility] Comment on above: Performed By: #### C BC #### [facility] [address] [place] [address] Dr. Tasha Dodson Lymphocytes/100 WBC (Bld) 13.6 % Critically low 20.5-60.0 [facility] Comment on above: Performed By: #### C BC #### [facility] [address] [place] [address] Dr. Tasha Dodson MANUAL DIFF REQ NO Normal [facility] Comment on above: Performed By: #### C BC #### [facility] [address] [place] [address] Dr. Tasha Dodson MCH (RBC) [Entitic mass] 31.2 pg Normal 26.7-34.0 [facility] Comment on above: Performed By: #### C BC #### [facility] [address] [address] [address] Tasha Dodson MCHC (RBC) [Mass/Vol] 36.3 g/dL Critically high 29.9-35.2 [facility] Comment on above: Performed By: #### C BC #### [facility] [address] [address] [address] Tasha Dodson MCV (RBC) [Entitic vol] 85.9 fL Normal 81.0-99.0 [facility] Comment on above: Performed By: #### C BC #### [facility] [address] [address] [address] Tasha Dodson MONO # 1.3 103/ul Critically high 0.3-0.8 [facility] Comment on above: Performed By: #### C BC #### [facility] [address] [place] [address] Dr. Tasha Dodson Monocytes/100 WBC (Bld) 7.8 % Normal 1.7-12.0 [facility] Comment on above: Performed By: #### C BC #### [facility] [address] [address] [address] Tasha Dodson NEUT # 12.4 103/ul Critically high 1.4-6.5 [facility] Comment on above: Performed By: #### C BC #### [facility] [address] [place] [address] Dr. Tasha Dodson Neutrophils/100 WBC (Bld) 77.2 % Critically high 43.0-75.0 [facility] Comment on above: Performed By: #### C BC #### [facility] [address] [address] [address] Tasha Dodson Platelet mean volume (Bld) [Entitic vol] 8.6 fL Critically low 9.5-13.5 [facility] Comment on above: Performed By: #### C BC #### [facility] [address] [place] [address] Dr. Tasha Dodson PLT 385 103/ul Normal 150-450 [facility] Comment on above: Performed By: #### C BC #### [facility] [address] [address] [address] Tasha Dodson RBC 3.98 106/ul Critically low 4.20-5.40 [facility] Comment on above: Performed By: #### C BC #### [facility] [address] [address] [address] Tasha Dodson WBC 16.1 103/ul Critically high 4.0-11.0 [facility] Comment on above: Performed By: #### C BC #### [facility] [address] [place] [address] Dr. Tasha Dodson PROF 14(COMP METB)on 022 Albumin [Mass/Vol] 3.2 g/dL Critically low 3.4-5.0 [facility] Comment on above: Performed By: #### T SH, BMP #### [facility] [address] [place] [address] Dr. Tasha Dodson Albumin/Globulin [Mass ratio] 1.0 {ratio} Normal [facility] Comment on above: Performed By: #### T SH, BMP #### [facility] [address] [place] [address] Dr. Tasha Dodson ALP [Catalytic activity/Vol] 51 U/L Normal 46-116 [facility] Comment on above: Performed By: #### T SH, BMP #### [facility] [address] [place] [address] Dr. Tasha Dodson ALT [Catalytic activity/Vol] 17 U/L Normal 14-59 [facility] Comment on above: Performed By: #### T SH, BMP #### [facility] [address] [place] [address] Dr. Tasha Dodson Anion gap [Moles/Vol] 10.5 mmol/L Normal [facility] Comment on above: Performed By: #### T SH, BMP #### [facility] [address] [place] [address] Dr. Tasha Dodson AST [Catalytic activity/Vol] 18 U/L Normal 15-37 [facility] Comment on above: Performed By: #### T SH, BMP #### [facility] [address] [address] [address] Tasha Dodson Bilirubin [Mass/Vol] 0.4 mg/dL Normal 0.2-1.0 [facility] Comment on above: Performed By: #### T SH, BMP #### [facility] [address] [place] [address] Dr. Tasha Dodson Calcium [Mass/Vol] 8.3 mg/dL Critically low 8.5-10.1 [facility] Comment on above: Performed By: #### T SH, BMP #### [facility] [address] [place] [address] Dr. Tasha Dodson Chloride [Moles/Vol] 96 mmol/L Critically low 98-107 [facility] Comment on above: Performed By: #### T SH, BMP #### [facility] [address] [place] [address] Dr. Tasha Dodson CO2 [Moles/Vol] 24.5 mmol/L Normal 21.0-32.0 [facility] Comment on above: Performed By: #### T SH, BMP #### [facility] [address] [place] [address] Dr. Tasha Dodson Creatinine [Mass/Vol] 0.54 mg/dL Critically low 0.55-1.02 [facility] Comment on above: Performed By: #### T SH, BMP #### [facility] [address] [place] [address] Dr. Tasha Dodson EGFR-AF [place]IZ[place] >60 Normal >=60 [facility] Comment on above: Performed By: #### T SH, BMP #### [facility] [address] [place] [address] Dr. Tasha Dodson EGFR-NON AF CITIZ[place] >60 Normal >=60 [facility] Comment on above: Performed By: #### T SH, BMP #### [facility] [address] [place] [address] Dr. Tasha Dodson Globulin (S) [Mass/Vol] 3.1 g/dL Normal [facility] Comment on above: Performed By: #### T SH, BMP #### [facility] [address] [place] [address] Dr. Tasha Dodson Glucose [Mass/Vol] 123 mg/dL Critically high 74-106 T [facility] Comment on above: Performed By: #### T , BMP #### [facility] [address] [place] [address] Dr. Tasha Dodson Potassium [Moles/Vol] 3.0 mmol/L Critically low 3.5-5.1 [facility] Comment on above: Performed By: #### T , BMP #### [facility] [address] [place] [address] Dr. Tasha Dodson Protein [Mass/Vol] 6.3 g/dL Critically low 6.4-8.2 [facility] Comment on above: Performed By: #### T , BMP #### [facility] [address] [place] [address] Dr. Tasha Dodson Sodium [Moles/Vol] 128 mmol/L Critically low 136-145 [facility] Comment on above: Performed By: #### T , BMP #### [facility] [address] [place] [address] Dr. Tasha Dodson Urea nitrogen [Mass/Vol] 5.0 mg/dL Critically low 7.0-18.0 [facility] Comment on above: Performed By: #### T , BMP #### [facility] [address] [place] [address] Dr. Tasha Dodson Urea nitrogen/Creatinine [Mass ratio] 9.3 mg/mg Normal [facility] Comment on above: Performed By: #### T , BMP #### [facility] [address] [place] [address] Dr. Tasha Dodson SODIUM RANDOM URINEon 2021 Sodium (U) [Moles/Vol] 135 mmol/L Critically high 30-90 [facility] Comment on above: Performed By: #### C BC #### [facility] [address] [place] [address] Dr. Tasha Dodson CBC AUTO DIFFon 12-27-2021 BASO # 0.0 103/ul Normal 0.0-0.1 [facility] Comment on above: Performed By: #### C BC #### [facility] [address] [place] [address] Dr. Tasha Dodson Basophils/100 WBC (Bld) 0.2 % Normal 0.2-2.0 [facility] Comment on above: Performed By: #### C BC #### [facility] [address] [place] [address] Dr. Tasha Dodson EO # 0.3 103/ul Normal 0.0-0.7 [facility] Comment on above: Performed By: #### C BC #### [facility] [address] [place] [address] Dr. Tasha Dodson Eosinophils/100 WBC (Bld) 2.3 % Normal 0.9-7.0 [facility] Comment on above: Performed By: #### C BC #### [facility] [address] [place] [address] Dr. Tasha Dodson Erythrocyte distribution width (RBC) [Ratio] 12.4 % Normal 11.0-15.0 [facility] Comment on above: Performed By: #### C BC #### [facility] [address] [place] [address] Dr. Tasha Dodson Hematocrit (Bld) [Volume fraction] 35.4 % Critically low 36.0-48.0 [facility] Comment on above: Performed By: #### C BC #### [facility] [address] [place] [address] Dr. Tasha Dodson Hemoglobin (Bld) [Mass/Vol] 12.9 g/dL Normal 12.0-16.0 [facility] Comment on above: Performed By: #### C BC #### [facility] [address] [place] [address] Dr. Tasha Dodson IG # 0.06 10e3/ul Critically high 0.00-0.03 [facility] Comment on above: Performed By: #### C BC #### [facility] [address] [place] [address] Dr. Tasha Dodson IG % 0.5 % Normal 0.0-0.5 [facility] Comment on above: Performed By: #### C BC #### [facility] [address] [address] [address] Tasha Dodson LYMPH # 2.0 103/ul Normal 1.2-3.8 [facility] Comment on above: Performed By: #### C BC #### [facility] [address] [address] [address] Tasha Dodson Lymphocytes/100 WBC (Bld) 15.7 % Critically low 20.5-60.0 [facility] Comment on above: Performed By: #### C BC #### [facility] [address] [place] [address] Dr. Tasha Dodson MANUAL DIFF REQ NO Normal [facility] Comment on above: Performed By: #### C BC #### [facility] [address] [place] [address] Dr. Tasha Dodson MCH (RBC) [Entitic mass] 31.0 pg Normal 26.7-34.0 [facility] Comment on above: Performed By: #### C BC #### [facility] [address] [place] [address] Dr. Tasha Dodson MCHC (RBC) [Mass/Vol] 36.4 g/dL Critically high 29.9-35.2 [facility] Comment on above: Performed By: #### C BC #### [facility] [address] [place] [address] Dr. Tasha Dodson MCV (RBC) [Entitic vol] 85.1 fL Normal 81.0-99.0 [facility] Comment on above: Performed By: #### C BC #### [facility] [address] [place] [address] Dr. Tasha Dodson MONO # 1.1 103/ul Critically high 0.3-0.8 [facility] Comment on above: Performed By: #### C BC #### [facility] [address] [place] [address] Dr. Tasha Dodson Monocytes/100 WBC (Bld) 8.3 % Normal 1.7-12.0 [facility] Comment on above: Performed By: #### C BC #### [facility] [address] [address] [address] Tasha Dodson NEUT # 9.5 103/ul Critically high 1.4-6.5 [facility] Comment on above: Performed By: #### C BC #### [facility] [id number] Tasha Dodson Neutrophils/100 WBC (Bld) 73.0 % Normal 43.0-75.0 [facility] Comment on above: Performed By: #### C BC #### [facility] [address] [address] [address] Tasha Dodson Platelet mean volume (Bld) [Entitic vol] 8.3 fL Critically low 9.5-13.5 [facility] Comment on above: Performed By: #### C BC #### [facility] [address] [address] [address] Tasha Dodson PLT 408 103/ul Normal 150-450 [facility] Comment on above: Performed By: #### C BC #### [facility] [address] [address] [address] Tasha Dodson RBC 4.16 106/ul Critically low 4.20-5.40 [facility] Comment on above: Performed By: #### C BC #### [facility] [id number] Tasha Dodson WBC 13.0 103/ul Critically high 4.0-11.0 [facility] Comment on above: Performed By: #### C BC #### [facility] [id number] Tasha Dodson CULTURE SPUTUMon 12-27-2021 CULTURE SPUTUM Culture Observations : NORMAL RESPIRATORY AMADOU. Normal [facility] Comment on above: Performed By: #### C BC #### [facility] [address] [address] [address] Tasha Dodson PROF 14(COMP METB)on 022 Albumin [Mass/Vol] 3.4 g/dL Normal 3.4-5.0 [facility] Comment on above: Performed By: #### C MADM, LIPA, BNP, CMP #### [facility] [address] [place] [address] Dr. Tasha Dodson Albumin/Globulin [Mass ratio] 1.0 {ratio} Normal [facility] Comment on above: Performed By: #### C MADM, LIPA, BNP, CMP #### [facility] [address] [place] [address] Dr. Tasha Dodson ALP [Catalytic activity/Vol] 54 U/L Normal 46-116 [facility] Comment on above: Performed By: #### C MADM, LIPA, BNP, CMP #### [facility] [address] [place] [address] Dr. Tasha Dodson ALT [Catalytic activity/Vol] 20 U/L Normal 14-59 [facility] Comment on above: Performed By: #### C MADM, LIPA, BNP, CMP #### [facility] [address] [place] [address] Dr. Tasha Dodson Anion gap [Moles/Vol] 10.8 mmol/L Normal [facility] Comment on above: Performed By: #### C MADM, LIPA, BNP, CMP #### [facility] [address] [place] [address] Dr. Tasha Dodson AST [Catalytic activity/Vol] 19 U/L Normal 15-37 [facility] Comment on above: Performed By: #### C MADM, LIPA, BNP, CMP #### [facility] [address] [place] [address] Dr. Tasha Dodson Bilirubin [Mass/Vol] 0.5 mg/dL Normal 0.2-1.0 [facility] Comment on above: Performed By: #### C MADM, LIPA, BNP, CMP #### [facility] [address] [place] [address] Dr. Tasha Dodson Calcium [Mass/Vol] 8.3 mg/dL Critically low 8.5-10.1 [facility] Comment on above: Performed By: #### C MADM, LIPA, BNP, CMP #### [facility] [address] [address] [address] Tasha Dodson Chloride [Moles/Vol] 89 mmol/L Critically low 98-107 [facility] Comment on above: Performed By: #### C MADM, LIPA, BNP, CMP #### [facility] [address] [place] [address] Dr. Tasha Dodson CO2 [Moles/Vol] 27.0 mmol/L Normal 21.0-32.0 [facility] Comment on above: Performed By: #### C MADM, LIPA, BNP, CMP #### [facility] [address] [address] [address] Tasha Dodson Creatinine [Mass/Vol] 0.69 mg/dL Normal 0.55-1.02 [facility] Comment on above: Performed By: #### C MADM, LIPA, BNP, CMP #### [facility] [address] [place] [address] Dr. Tasha Dodson EGFR-AF [place] >60 Normal >=60 [facility] Comment on above: Performed By: #### C MADM, LIPA, BNP, CMP #### [facility] [address] [place] [address] Dr. Tasha Dodson EGFR-NON AF [place]IZ[place] >60 Normal >=60 [facility] Comment on above: Performed By: #### C MADM, LIPA, BNP, CMP #### [facility] [address] [address] [address] Tasha Dodson Globulin (S) [Mass/Vol] 3.3 g/dL Normal [facility] Comment on above: Performed By: #### C MADM, LIPA, BNP, CMP #### [facility] [address] [place] [address] Dr. Tasha Dodson Glucose [Mass/Vol] 115 mg/dL Critically high 74-106 [facility] Comment on above: Performed By: #### C MADM, LIPA, BNP, CMP #### [facility] [address] [place] [address] Dr. Tasha Dodson Potassium [Moles/Vol] 2.7 mmol/L Critically low 3.5-5.1 [facility] Comment on above: Result Comment: Test Repeated. Critical Value Verified Performed By: #### C MADM, LIPA, BNP, CMP #### [facility] [address] [address] [address] Tasha Dodson Protein [Mass/Vol] 6.7 g/dL Normal 6.4-8.[address] [facility] Comment on above: Performed By: #### C MADM, LIPA, BNP, CMP #### [facility] [address] [address] [address] Tasha Dodson Sodium [Moles/Vol] 123 mmol/L Critically low 136-145 [facility] Comment on above: Result Comment: Test Repeated. Critical Value Verified Performed By: #### C MADM, LIPA, BNP, CMP #### [facility] [address] [address] [address] Tasha Dodson Urea nitrogen [Mass/Vol] 6.0 mg/dL Critically low 7.0-18.0 [facility] Comment on above: Performed By: #### C MADM, LIPA, BNP, CMP #### [facility] [address] [place] [address] Dr. Tasha Dodson Urea nitrogen/Creatinine [Mass ratio] 8.7 mg/mg Normal [facility] Comment on above: Performed By: #### C MADM, LIPA, BNP, CMP #### [facility] [address] [address] [address] Tasha Dodson SPUTUM GRAM STAINon 12-28-19 COMMENTS Normal [facility] Comment on above: Performed By: #### T SH, BMP #### [facility] [address] [address] [address] Tasha Dodson DIPHTHEROIDS Normal [facility] Comment on above: Performed By: #### T SH, BMP #### [facility] [address] [place] [address] Dr. Tasha Dodson EPITHELIALS <25 Normal [facility] Comment on above: Performed By: #### T SH, BMP #### [facility] [address] [address] [address] Tasha Dodson FUNGAL ELEMENTS Normal [facility] Comment on above: Performed By: #### T SH, BMP #### [facility] [address] [address] [address] Tasha Dodson GRAM NEG BACILLI Normal [facility] Comment on above: Performed By: #### T SH, BMP #### [facility] [address] [address] [address] Tasha Dodson GRAM NEG DIPPLOCOCCI Normal [facility] Comment on above: Performed By: #### T SH, BMP #### [facility] [address] [address] [address] Tasha Dodson GRAM POS BACILLI Normal [facility] Comment on above: Performed By: #### T SH, BMP #### [facility] [address] [place] [address] Dr. Tasha Dodson GRAM POSITIVE COCCI MODERATE Normal [facility] Comment on above: Performed By: #### T SH, BMP #### [facility] [address] [place] [address] Dr. Tasha Dodson WBC (Bld) [#/Vol] 10*3/uL Normal [facility] Comment on above: Performed By: #### T SH, BMP #### [facility] [address] [place] [address] Dr. Tasha Dodson BNPon 12-26-2021 Natriuretic peptide B (Bld) [Mass/Vol] 148.0 pg/mL Normal <=1,800.0 [facility] Comment on above: Performed By: #### C MADM, LIPA, BNP, CMP #### [facility] [address] [place] [address] Dr. Tasha Dodson CARDIAC ANGELO ADMITon 022 CK [Catalytic activity/Vol] 139 U/L Normal 26-192 [facility] Comment on above: Performed By: #### C MADM, LIPA, BNP, CMP #### [facility] [address] [place] [address] Dr. Tasha Dodson CK.MB [Mass/Vol] 2.43 ng/mL Normal <=3.60 [facility] Comment on above: Performed By: #### C MADM, LIPA, BNP, CMP #### [facility] [address] [address] [address] Tasha Dodson HSTROP 12.2 pg/mL Normal 4.0-51.3 [facility] Comment on above: Result Comment: CUT- OFF POINTS HAVE BEEN ESTABLISHED BASED ON THE FOURTH UNIVERSAL DEFINITIONS OF MYOCARDIAL INFARCTION. THE UPPER REFERENCE LIMIT (URL) OF TROPONIN, DEFINED THE 99TH PERCENTILE OF cTnI DISTRIBUTION IN A REFERENCE POPULATION, HAS BEEN CONFIRMED THE DECISION THRESHOLD FOR AK DIAGNOSIS. Performed By: #### C MADM, LIPA, BNP, CMP #### [facility] [address] [place] [address] Dr. Tasha Dodson ELIZABETH 110 ng/mL Critically high 9-82 [facility] Comment on above: Performed By: #### C MADM, LIPA, BNP, CMP #### [facility] [address] [place] [address] Dr. Tasha Dodson CBC AUTO DIFFon 12-26-2021 BASO # 0.0 103/ul Normal 0.0-0.1 [facility] Comment on above: Performed By: #### C MADM, LIPA, BNP, CMP #### [facility] [address] [place] [address] Dr. Tasha Dodson Basophils/100 WBC (Bld) 0.3 % Normal 0.2-2.0 [facility] Comment on above: Performed By: #### C MADM, LIPA, BNP, CMP #### [facility] [address] [place] [address] Dr. Tasha Dodson EO # 0.1 103/ul Normal 0.0-0.7 [facility] Comment on above: Performed By: #### C MADM, LIPA, BNP, CMP #### [facility] [address] [place] [address] Dr. Tasha Dodson Eosinophils/100 WBC (Bld) 0.7 % Critically low 0.9-7.0 [facility] Comment on above: Performed By: #### C MADM, LIPA, BNP, CMP #### [facility] [address] [place] [address] Dr. Tasha Dodson Erythrocyte distribution width (RBC) [Ratio] 12.4 % Normal 11.0-15.0 [facility] Comment on above: Performed By: #### C MADM, LIPA, BNP, CMP #### [facility] [address] [place] [address] Dr. Tasha Dodson Hematocrit (Bld) [Volume fraction] 38.9 % Normal 36.0-48.0 [facility] Comment on above: Performed By: #### C MADM, LIPA, BNP, CMP #### [facility] [address] [place] [address] Dr. Tasha Dodson Hemoglobin (Bld) [Mass/Vol] 14.4 g/dL Normal 12.0-16.0 [facility] Comment on above: Performed By: #### C MADM, LIPA, BNP, CMP #### [facility] [address] [place] [address] Dr. Tasha Dodson IG # 0.08 10e3/ul Critically high 0.00-0.03 [facility] Comment on above: Performed By: #### C MADM, LIPA, BNP, CMP #### [facility] [address] [place] [address] Dr. Tasha Dodson IG % 0.5 % Normal 0.0-0.5 [facility] Comment on above: Performed By: #### C MADM, LIPA, BNP, CMP #### [facility] [address] [place] [address] Dr. Tasha Dodson LYMPH # 2.2 103/ul Normal 1.2-3.8 [facility] Comment on above: Performed By: #### C MADM, LIPA, BNP, CMP #### [facility] [address] [place] [address] Dr. Tasha Dodson Lymphocytes/100 WBC (Bld) 15.0 % Critically low 20.5-60.0 [facility] Comment on above: Performed By: #### C MADM, LIPA, BNP, CMP #### [facility] [address] [place] [address] Dr. Tasha Dodson MANUAL DIFF REQ NO Normal [facility] Comment on above: Performed By: #### C MADM, LIPA, BNP, CMP #### [facility] [address] [place] [address] Dr. Tasha Dodson MCH (RBC) [Entitic mass] 31.6 pg Normal 26.7-34.0 [facility] Comment on above: Performed By: #### C MADM, LIPA, BNP, CMP #### [facility] [address] [place] [address] Dr. Tasha Dodson MCHC (RBC) [Mass/Vol] 37.0 g/dL Critically high 29.9-35.2 [facility] Comment on above: Performed By: #### C MADM, LIPA, BNP, CMP #### [facility] [address] [place] [address] Dr. Tasha Dodson MCV (RBC) [Entitic vol] 85.3 fL Normal 81.0-99.0 [facility] Comment on above: Performed By: #### C MADM, LIPA, BNP, CMP #### [facility] [address] [place] [address] Dr. Tasha Dodson MONO # 1.0 103/ul Critically high 0.3-0.8 [facility] Comment on above: Performed By: #### C MADM, LIPA, BNP, CMP #### [facility] [address] [place] [address] Dr. Tasha Dodson Monocytes/100 WBC (Bld) 6.8 % Normal 1.7-12.0 [facility] Comment on above: Performed By: #### C MADM, LIPA, BNP, CMP #### [facility] [address] [place] [address] Dr. Tasha Dodson NEUT # 11.5 103/ul Critically high 1.4-6.5 [facility] Comment on above: Performed By: #### C MADM, LIPA, BNP, CMP #### [facility] [address] [place] [address] Dr. Tasha Dodson Neutrophils/100 WBC (Bld) 76.7 % Critically high 43.0-75.0 [facility] Comment on above: Performed By: #### C MADM, LIPA, BNP, CMP #### [facility] [address] [place] [address] Dr. Tasha Dodson Platelet mean volume (Bld) [Entitic vol] 8.6 fL Critically low 9.5-13.5 [facility] Comment on above: Performed By: #### C MADM, LIPA, BNP, CMP #### [facility] [address] [place] [address] Dr. Tasha Dodson PLT 491 103/ul Critically high 150-450 [facility] Comment on above: Performed By: #### C MADM, LIPA, BNP, CMP #### [facility] [address] [place] [address] Dr. Tasha Dodson RBC 4.56 106/ul Normal 4.20-5.40 [facility] Comment on above: Performed By: #### C MADM, LIPA, BNP, CMP #### [facility] [address] [place] [address] Dr. Tasha Dodson WBC 15.0 103/ul Critically high 4.0-11.0 [facility] Comment on above: Performed By: #### C MADM, LIPA, BNP, CMP #### [facility] [address] [place] [address] Dr. Tasha Dodson CULTURE URINEon 12-26-2021 CULTURE URINE Culture Observations : LIGHT GROWTH OF MIXED GENITAL AMADOU. NO POTENTIAL PATHOGENS SEEN. Normal [facility] Comment on above: Performed By: #### C BC #### [facility] [address] [place] [address] Dr. Tasha Dodson [facility]on SARS-CoV-2 (COVID-19) RNA CARITO+probe Ql (Unsp spec) Not detected Normal NOT DETECTED [facility] Comment on above: Result Comment: When [...] for this test is supported by the [place] Clerk of Health and Human Service's declaration that [...] #### C MADM, LIPA, BNP, CMP #### [facility] [address] [place] [address] Dr. Tasha Dodson ER URINE PROFILEon 2 Bilirubin Ql (U) Negative Normal NEGATIVE [facility] Comment on above: Performed By: #### T SH, BMP #### [facility] [address] [place] [address] Dr. Tasha Dodson Clarity (U) CLEAR Normal [facility] Comment on above: Performed By: #### T SH, BMP #### [facility] [address] [place] [address] Dr. Tasha Dodson Color (U) LT. YELLOW Normal YELLOW [facility] Comment on above: Performed By: #### T SH, BMP #### [facility] [address] [place] [address] Dr. Tasha Dodson ERUAHD A micrscopic examination will be performed if indicated. Normal [facility] Comment on above: Performed By: #### T SH, BMP #### [facility] [address] [place] [address] Dr. Tasha Dodson Glucose Ql (U) Negative Normal NEGATIVE [facility] Comment on above: Performed By: #### T SH, BMP #### [facility] [address] [place] [address] Dr. Tasha Dodson Hemoglobin Ql (U) TRACE-INTACT Abnormal NEGATIVE [facility] Comment on above: Performed By: #### T SH, BMP #### [facility] [address] [place] [address] Dr. Tasha Dodson Ketones Ql (U) TRACE Abnormal NEGATIVE [facility] Comment on above: Performed By: #### T SH, BMP #### [facility] [address] [place] [address] Dr. Tasha Dodson LEUKOCYTES Negative Normal NEGATIVE [facility] Comment on above: Performed By: #### T SH, BMP #### [facility] [address] [place] [address] Dr. Tasha Dodson Nitrite Ql (U) Negative Normal NEGATIVE [facility] Comment on above: Performed By: #### T SH, BMP #### [facility] [address] [place] [address] Dr. Tasha Dodson pH (U) 7.0 [pH] Normal 5-9 [facility] Comment on above: Performed By: #### T SH, BMP #### [facility] [address] [place] [address] Dr. Tasha Dodson SPEC GRAVITY 1.010 Normal 1.005-<=1.0 25 [facility] Comment on above: Performed By: #### T SH, BMP #### [facility] [address] [place] [address] Dr. Tasha Dodson UA PROTEIN Negative Normal NEGATIVE/ TRACE [facility] Comment on above: Performed By: #### T SH, BMP #### [facility] [address] [place] [address] Dr. Tasha Dodson UR MICRO IND INDICATED Normal [facility] Comment on above: Performed By: #### T SH, BMP #### [facility] [address] [place] [address] Dr. Tasha Dodson Urobilinogen Qn (U) 0.2 {Juan'U}/dL Normal 0.2 - 1. 0 [facility] Comment on above: Performed By: #### T SH, BMP #### [facility] [address] [place] [address] Dr. Tasha Dodson INFLUENZA A AND B AGon 12-26 INFLUANEGH SEE BELOW Normal [facility] Comment on above: Result Comment: Nega tive for Flu A protein angiten. Infection due to Flu A cannot be ruled out. Flu A angiten in the sample may be below the detection limit of the test. Performed By: #### C BC #### [facility] [address] [place] [address] Dr. Tasha Dodson INFLUBNEGH SEE BELOW Normal [facility] Comment on above: Result Comment: Nega tive for Flu B protein antigen. Infection due to Flu B cannot be ruled out. Flu B antigen in the sample may be below the detection limit of the test. Performed By: #### C BC #### [facility] [address] [place] [address] Dr. Tasha Dodson INFLUENZA A AG Negative Normal NEGATIVE SEE COMMENT [facility] Comment on above: Performed By: #### C BC #### [facility] [address] [place] [address] Dr. Tasha Dodson INFLUENZA B AG Negative Normal NEGATIVE SEE COMMENT [facility] Comment on above: Performed By: #### C BC #### [facility] [address] [place] [address] Dr. Tasha Dodson INTERNAL CONTROLS Within Normal Limits Normal Wi thin Normal Limits [facility] Comment on above: Performed By: #### C BC #### [facility] [address] [place] [address] Dr. Tasha Dodson LACTATE/LACTIC ACIDon 2021 Lactate [Moles/Vol] 1.5 mmol/L Normal 0.4-1.9 [facility] Comment on above: Performed By: #### T SH, BMP #### [facility] [address] [place] [address] Dr. Tasha Dodson LIPASEon 12-26-2021 Lipase [Catalytic activity/Vol] 96.0 U/L Normal 73.0-393.0 [facility] Comment on above: Performed By: #### C MADM, LIPA, BNP, CMP #### [facility] [address] [place] [address] Dr. Tasha Dodson PROF 14(COMP METB)on 022 Albumin [Mass/Vol] 4.2 g/dL Normal 3.4-5.0 [facility] Comment on above: Performed By: #### C MADM, LIPA, BNP, CMP #### [facility] [address] [place] [address] Dr. Tasha Dodson Albumin/Globulin [Mass ratio] 1.1 {ratio} Normal [facility] Comment on above: Performed By: #### C MADM, LIPA, BNP, CMP #### [facility] [address] [place] [address] Dr. Tasha Dodson ALP [Catalytic activity/Vol] 68 U/L Normal 46-116 [facility] Comment on above: Performed By: #### C MADM, LIPA, BNP, CMP #### [facility] [address] [place] [address] Dr. Tasha Dodson ALT [Catalytic activity/Vol] 23 U/L Normal 14-59 [facility] Comment on above: Performed By: #### C MADM, LIPA, BNP, CMP #### [facility] [address] [place] [address] Dr. Tasha Dodson Anion gap [Moles/Vol] 12.3 mmol/L Normal [facility] Comment on above: Performed By: #### C MADM, LIPA, BNP, CMP #### [facility] [address] [place] [address] Dr. Tasha Dodson AST [Catalytic activity/Vol] 25 U/L Normal 15-37 [facility] Comment on above: Performed By: #### C MADM, LIPA, BNP, CMP #### [facility] [address] [place] [address] Dr. Tasha Dodson Bilirubin [Mass/Vol] 0.7 mg/dL Normal 0.2-1.0 [facility] Comment on above: Performed By: #### C MADM, LIPA, BNP, CMP #### [facility] [address] [place] [address] Dr. Tasha Dodson Calcium [Mass/Vol] 9.5 mg/dL Normal 8.5-10.1 [facility] Comment on above: Performed By: #### C MADM, LIPA, BNP, CMP #### [facility] [address] [address] [address] Tasha Dodson Chloride [Moles/Vol] 80 mmol/L Critically low 98-107 [facility] Comment on above: Performed By: #### C MADM, LIPA, BNP, CMP #### [facility] [address] [address] [address] Tasha Dodson CO2 [Moles/Vol] 27.1 mmol/L Normal 21.0-32.0 [facility] Comment on above: Performed By: #### C MADM, LIPA, BNP, CMP #### [facility] [address] [place] [address] Dr. Tasha Dodson Creatinine [Mass/Vol] 0.85 mg/dL Normal 0.55-1.02 [facility] Comment on above: Performed By: #### C MADM, LIPA, BNP, CMP #### [facility] [address] [place] [address] Dr. Tasha Dodson EGFR-AF [place] >60 Normal >=60 [facility] Comment on above: Performed By: #### C MADM, LIPA, BNP, CMP #### [facility] [address] [place] [address] Dr. Tasha Dodson EGFR-NON AF CITIZ[place] >60 Normal >=60 [facility] Comment on above: Performed By: #### C MADM, LIPA, BNP, CMP #### [facility] [address] [place] [address] Dr. Tasha Dodson Globulin (S) [Mass/Vol] 3.9 g/dL Normal [facility] Comment on above: Performed By: #### C MADM, LIPA, BNP, CMP #### [facility] [address] [place] [address] Dr. Tasha Dodson Glucose [Mass/Vol] 132 mg/dL Critically high 74-106 [facility] Comment on above: Performed By: #### C MADM, LIPA, BNP, CMP #### [facility] [address] [address] [address] Tasha Dodson Potassium [Moles/Vol] 2.4 mmol/L Critically low 3.5-5.1 [facility] Comment on above: Performed By: #### C MADM, LIPA, BNP, CMP #### [facility] [address] [place] [address] Dr. Tasha Dodson Protein [Mass/Vol] 8.1 g/dL Normal 6.4-8.2 [facility] Comment on above: Performed By: #### C MADM, LIPA, BNP, CMP #### [facility] [address] [place] [address] Dr. Tasha Dodson Sodium [Moles/Vol] 116 mmol/L Critically low 136-145 [facility] Comment on above: Performed By: #### C MADM, LIPA, BNP, CMP #### [facility] [address] [place] [address] Dr. Tasha Dodson Urea nitrogen [Mass/Vol] 12.0 mg/dL Normal 7.0-18.0 [facility] Comment on above: Performed By: #### C MADM, LIPA, BNP, CMP #### [facility] [address] [place] [address] Dr. Tasha Dodson Urea nitrogen/Creatinine [Mass ratio] 14.1 mg/mg Normal [facility] Comment on above: Performed By: #### C MADM, LIPA, BNP, CMP #### [facility] [address] [place] [address] Dr. Tasah Dodson PROF CHEM 8 (BAS METB)on Anion gap [Moles/Vol] 11.4 mmol/L Normal [facility] Comment on above: Performed By: #### T SH, BMP #### [facility] [address] [place] [address] Dr. Tasha Dodson Calcium [Mass/Vol] 8.4 mg/dL Critically low 8.5-10.1 [facility] Comment on above: Performed By: #### T SH, BMP #### [facility] [address] [address] [address] Tasha Dodson Chloride [Moles/Vol] 89 mmol/L Critically low 98-107 [facility] Comment on above: Performed By: #### T SH, BMP #### [facility] [address] [address] [address] Tasha Dodson CO2 [Moles/Vol] 25.5 mmol/L Normal 21.0-32.0 [facility] Comment on above: Performed By: #### T SH, BMP #### [facility] [address] [address] [address] Tasha Dodson Creatinine [Mass/Vol] 0.89 mg/dL Normal 0.55-1.02 [facility] Comment on above: Performed By: #### T SH, BMP #### [facility] [address] [address] [address] Tasha Dodson EGFR-AF [place] >60 Normal >=60 [facility] Comment on above: Performed By: #### T SH, BMP #### [facility] [address] [address] [address] Tasha Dodson EGFR-NON AF [place] 60 mL/min/1.73m2 Normal >=60 [facility] Comment on above: Performed By: #### T SH, BMP #### [facility] [address] [address] [address] Tasha Dodson Glucose [Mass/Vol] 166 mg/dL Critically high 74-106 [facility] Comment on above: Performed By: #### T SH, BMP #### [facility] [address] [address] [address] Tasha Dodson Potassium [Moles/Vol] 3.0 mmol/L Critically low 3.5-5.1 [facility] Comment on above: Performed By: #### T SH, BMP #### [facility] [address] [address] [address] Tasha Dodson Sodium [Moles/Vol] 123 mmol/L Critically low 136-145 [facility] Comment on above: Performed By: #### T JESI, BMP #### [facility] [address] [place] [address] Dr. Tasha Dodson Urea nitrogen [Mass/Vol] 9.0 mg/dL Normal 7.0-18.0 [facility] Comment on above: Performed By: #### T JESI, BMP #### [facility] [address] [place] [address] Dr. Tasha Dodson Urea nitrogen/Creatinine [Mass ratio] 10.1 mg/mg Normal [facility] Comment on above: Performed By: #### T JESI, BMP #### [facility] [address] [place] [address] Dr. Tasha Dodson PROTIMEon 12-26-2021 INR Coag (PPP) [Relative time] 0.96 {INR} Normal [facility] Comment on above: Performed By: #### T JESI, BMP #### [facility] [address] [place] [address] Dr. Tasha Dodson INR GUIDELINES SEE BELOW Normal [facility] Comment on above: Result Comment: JO RED INR: 2.0 - 3.0 CONDITIONS NOT LISTED BELOW 2.5 - 3.5 FOR PROSTHETIC HEART VALVE REPLACEMENT 2.5 - 3.5 RECURRENT THROMBOSIS Performed By: #### T JESI, BMP #### [facility] [address] [place] [address] Dr. Tasha Dodson PT Coag (PPP) [Time] 10.4 s Normal 9.0-11.6 [facility] Comment on above: Performed By: #### T JESI, BMP #### [facility] [address] [place] [address] Dr. Tasha Dodson PTTon 12-26-2021 aPTT Coag (Bld) [Time] 26.2 s Normal 22.3-36.2 [facility] Comment on above: Performed By: #### T JESI, BMP #### [facility] [address] [place] [address] Dr. Tasha Dodson SODIUM RANDOM URINEon 2021 Sodium (U) [Moles/Vol] 71 mmol/L Normal 30-90 [facility] Comment on above: Performed By: #### T SH, BMP #### [facility] [address] [place] [address] Dr. Tasha Dodson T4on 12-26-2021 T4 [Mass/Vol] 10.60 ug/dL Normal 4.80-13.90 [facility] Comment on above: Performed By: #### C BC #### [facility] [address] [place] [address] Dr. Tasha Dodson TSHon 12-26-2021 TSH 5.236 uIU/mL Critically high 0.358-3.740 [facility] Comment on above: Performed By: #### C BC #### [facility] [address] [place] [address] Dr. Tasha Dodson URINE MICROSCOPIC ONLYon BACTERIA TRACE Abnormal NONE SEEN [facility] Comment on above: Performed By: #### T SH, BMP #### [facility] [address] [place] [address] Dr. Tasha Dodson Bacteria identified Cx Nom (U) NOT INDICATED Normal [facility] Comment on above: Performed By: #### T SH, BMP #### [facility] [address] [place] [address] Dr. Tasha Dodson CAST NONE SEEN Normal NONE SEEN [facility] Comment on above: Performed By: #### T SH, BMP #### [facility] [address] [place] [address] Dr. Tasha Dodson Crystals LM Nom (Urine sed) NONE SEEN Normal NONE SEEN [facility] Comment on above: Performed By: #### T SH, BMP #### [facility] [address] [place] [address] Dr. Tasha Dodson Epithelial cells LM Ql (Urine sed) NONE SEEN Normal NONE SEEN /RARE [facility] Comment on above: Performed By: #### T SH, BMP #### [facility] [address] [place] [address] Dr. Tasha Dodson MUCOUS NONE SEEN Normal NONE SEEN [facility] Comment on above: Performed By: #### T SH, BMP #### [facility] [address] [address] [address] Tasha Dodson RBC 0-2 Normal 0-2 [facility] Comment on above: Performed By: #### T PAWAN DENNISON #### [facility] [address] [address] [address] Tasha Dodson WBC 0-2 Abnormal NONE SEEN [facility] Comment on above: Performed By: #### T PAWAN DENNISON #### [facility] [address] [address] [address] Tasha Dodson XR CHEST 1 Von [...] TING MIXON Date: 2021-12-26 11:32 Normal [facility] XR LSPINE MIN 4 VIEWSon 11-20 [...] by: JESUS BRUNO Date: 2021-11-30 22:52 Normal [facility] CBC AUTO DIFFon 11-09-2021 BASO # 0.1 103/ul Normal 0.0-0.1 [facility] Comment on above: Performed By: #### C MADM, LIPA, BNP, CMP #### [facility] [address] [place] [address] Dr. Tasha Dodson Basophils/100 WBC (Bld) 0.7 % Normal 0.2-2.0 [facility] Comment on above: Performed By: #### C MADM, LIPA, BNP, CMP #### [facility] [address] [place] [address] Dr. Tasha Dodson EO # 0.2 103/ul Normal 0.0-0.7 [facility] Comment on above: Performed By: #### C MADM, LIPA, BNP, CMP #### [facility] [address] [place] [address] Dr. Tasha Dodson Eosinophils/100 WBC (Bld) 1.8 % Normal 0.9-7.0 [facility] Comment on above: Performed By: #### C MADM, LIPA, BNP, CMP #### [facility] [address] [place] [address] Dr. Tasha Dodson Erythrocyte distribution width (RBC) [Ratio] 13.0 % Normal 11.0-15.0 [facility] Comment on above: Performed By: #### C MADM, LIPA, BNP, CMP #### [facility] [address] [place] [address] Dr. Tasha Dodson Hematocrit (Bld) [Volume fraction] 33.8 % Critically low 36.0-48.0 [facility] Comment on above: Performed By: #### C MADM, LIPA, BNP, CMP #### [facility] [address] [place] [address] Dr. Tasha Dodson Hemoglobin (Bld) [Mass/Vol] 12.5 g/dL Normal 12.0-16.0 [facility] Comment on above: Performed By: #### C MADM, LIPA, BNP, CMP #### [facility] [address] [place] [address] Dr. Tasha Dodson IG # 0.02 10e3/ul Normal 0.00-0.03 [facility] Comment on above: Performed By: #### C MADM, LIPA, BNP, CMP #### [facility] [address] [place] [address] Dr. Tasha Dodson IG % 0.2 % Normal 0.0-0.5 [facility] Comment on above: Performed By: #### C MADM, LIPA, BNP, CMP #### [facility] [address] [place] [address] Dr. Tasha Dodson LYMPH # 2.9 103/ul Normal 1.2-3.8 [facility] Comment on above: Performed By: #### C MADM, LIPA, BNP, CMP #### [facility] [address] [place] [address] Dr. Tasha Dodson Lymphocytes/100 WBC (Bld) 29.4 % Normal 20.5-60.0 [facility] Comment on above: Performed By: #### C MADM, LIPA, BNP, CMP #### [facility] [address] [place] [address] Dr. Tasha Dodson MANUAL DIFF REQ NO Normal [facility] Comment on above: Performed By: #### C MADM, LIPA, BNP, CMP #### [facility] [address] [place] [address] Dr. Tasha Dodson MCH (RBC) [Entitic mass] 34.1 pg Critically high 26.7-34.0 [facility] Comment on above: Performed By: #### C MADM, LIPA, BNP, CMP #### [facility] [address] [place] [address] Dr. Tasha Dodson MCHC (RBC) [Mass/Vol] 37.0 g/dL Critically high 29.9-35.2 [facility] Comment on above: Performed By: #### C MADM, LIPA, BNP, CMP #### [facility] [address] [place] [address] Dr. Tasha Dodson MCV (RBC) [Entitic vol] 92.1 fL Normal 81.0-99.0 [facility] Comment on above: Performed By: #### C MADM, LIPA, BNP, CMP #### [facility] [address] [place] [address] Dr. Tasha Dodson MONO # 0.8 103/ul Normal 0.3-0.8 [facility] Comment on above: Performed By: #### C MADM, LIPA, BNP, CMP #### [facility] [address] [place] [address] Dr. Tasha Dodson Monocytes/100 WBC (Bld) 8.2 % Normal 1.7-12.0 [facility] Comment on above: Performed By: #### C MADM, LIPA, BNP, CMP #### [facility] [address] [place] [address] Dr. Tasha Dodson NEUT # 5.9 103/ul Normal 1.4-6.5 [facility] Comment on above: Performed By: #### C MADM, LIPA, BNP, CMP #### [facility] [address] [place] [address] Dr. Tasha Dodson Neutrophils/100 WBC (Bld) 59.7 % Normal 43.0-75.0 [facility] Comment on above: Performed By: #### C MADM, LIPA, BNP, CMP #### [facility] [address] [place] [address] Dr. Tasha Dodson Platelet mean volume (Bld) [Entitic vol] 8.9 fL Critically low 9.5-13.5 [facility] Comment on above: Performed By: #### C MADM, LIPA, BNP, CMP #### [facility] [address] [place] [address] Dr. Tasha Dodson PLT 370 103/ul Normal 150-450 [facility] Comment on above: Performed By: #### C MADM, LIPA, BNP, CMP #### [facility] [address] [place] [address] Dr. Tasha Dodson RBC 3.67 106/ul Critically low 4.20-5.40 [facility] Comment on above: Performed By: #### C MADM, LIPA, BNP, CMP #### [facility] [address] [place] [address] Dr. Tasha Dodson WBC 9.9 103/ul Normal 4.0-11.0 [facility] Comment on above: Performed By: #### C MADM, LIPA, BNP, CMP #### [facility] [address] [place] [address] Dr. Tasha Dodson FREE T4on 11-09-2021 Free T4 [Mass/Vol] 1.48 ng/dL Critically high 0.76-1.46 [facility] Comment on above: Performed By: #### F T4 #### [facility] [address] [place] [address] Dr. Tasha Dodson PROF CHEM 8 (BAS METB)on Anion gap [Moles/Vol] 11.1 mmol/L Normal [facility] Comment on above: Performed By: #### T SH, BMP #### [facility] [address] [place] [address] Dr. Tasha Dodson Calcium [Mass/Vol] 9.3 mg/dL Normal 8.5-10.1 [facility] Comment on above: Performed By: #### T SH, BMP #### [facility] [address] [place] [address] Dr. Tasha Dodson Chloride [Moles/Vol] 92 mmol/L Critically low 98-107 [facility] Comment on above: Performed By: #### T SH, BMP #### [facility] [address] [place] [address] Dr. Tasha Dodson CO2 [Moles/Vol] 29.2 mmol/L Normal 21.0-32.0 [facility] Comment on above: Performed By: #### T SH, BMP #### [facility] [address] [place] [address] Dr. Tasha Dodson Creatinine [Mass/Vol] 0.68 mg/dL Normal 0.55-1.02 [facility] Comment on above: Performed By: #### T SH, BMP #### [facility] [address] [place] [address] Dr. Tasha Dodson EGFR-AF [place] >60 Normal >=60 [facility] Comment on above: Performed By: #### T SH, BMP #### [facility] [address] [address] [address] Tasha Dodson EGFR-NON AF [place] >60 Normal >=60 [facility] Comment on above: Performed By: #### T SH, BMP #### [facility] [address] [address] [address] Tasha Dodson Glucose [Mass/Vol] 109 mg/dL Critically high 74-106 [facility] Comment on above: Performed By: #### T SH, BMP #### [facility] [address] [address] [address] Tasha Dodson Potassium [Moles/Vol] 3.3 mmol/L Critically low 3.5-5.1 [facility] Comment on above: Performed By: #### T SH, BMP #### [facility] [address] [place] [address] Dr. Tasha Dodson Sodium [Moles/Vol] 129 mmol/L Critically low 136-145 [facility] Comment on above: Performed By: #### T SH, BMP #### [facility] [address] [address] [address] Tasha Dodson Urea nitrogen [Mass/Vol] 9.0 mg/dL Normal 7.0-18.0 [facility] Comment on above: Performed By: #### T SH, BMP #### [facility] [address] [place] [address] Dr. Tasha Dodson Urea nitrogen/Creatinine [Mass ratio] 13.2 mg/mg Normal [facility] Comment on above: Performed By: #### T SH, BMP #### [facility] [address] [address] [address] Tasha Dodson TSHon 11-09-2021 TSH 1.193 uIU/mL Normal 0.358-3.740 [facility] Comment on above: Performed By: #### T SH, BMP #### [facility] [address] [place] [address] Dr. Tasha Dodson LIPID PROFILEon 08-06-2021 CHOL-HDL RATIO NORM SEE BELOW Normal [facility] Comment on above: Result Comment: 3.3 - 4.4 LOW RISK 4.4 - 7.1 AVERAGE RISK 7.1 - 11.0 MODERATE RISK >11.0 HIGH RISK Performed By: #### C MADM, LIPA, BNP, CMP #### [facility] [address] [address] [address] Tasha Dodson Cholesterol [Mass/Vol] 198 mg/dL Normal <=200 [facility] Comment on above: Performed By: #### C MADM, LIPA, BNP, CMP #### [facility] [address] [address] [address] Tasha Dodson Cholesterol in HDL [Mass/Vol] 77 mg/dL Critically high 40-60 [facility] Comment on above: Performed By: #### C MADM, LIPA, BNP, CMP #### [facility] [address] [address] [address] Tasha Dodson Cholesterol in LDL [Mass/Vol] 106.0 mg/dL Normal [facility] Comment on above: Performed By: #### C MADM, LIPA, BNP, CMP #### [facility] [address] [address] [address] Tasha Dodson Cholesterol.total/Shahana sterol in HDL [Mass ratio] 2.6 {ratio} Normal [facility] Comment on above: Performed By: #### C MADM, LIPA, BNP, CMP #### [facility] [address] [address] [address] Tasha Dodson HDL NORMAL > or = 60 mg/dl - LO W CARDIOVASCULAR RISK <40 mg/dl - HIGH CARDIOVASCULAR RISK Normal [facility] Comment on above: Performed By: #### C MADM, LIPA, BNP, CMP #### [facility] [address] [address] [address] Tasha Dodson LDL CALC NORMAL SEE BELOW Normal [facility] Comment on above: Result Comment: <100 mg/dl OPTIMAL 100 - 129 mg/dl NEAR OR ABOVE OPTIMAL 130 - 159 mg/dl BORDERLINE HIGH 160 - 189 mg/dl HIGH >190 mg/dl VERY HIGH Performed By: #### C MADM, LIPA, BNP, CMP #### [facility] [address] [address] [address] Tasha Dodson Triglyceride [Mass/Vol] 75 mg/dL Normal <=150 T [facility] Comment on above: Performed By: #### C MADM, LIPA, BNP, CMP #### [facility] [address] [address] [address] Tasha Dodson VLDL CALC 15.0 mg/dL [facility] Comment on above: Performed By: #### C MADM, LIPA, BNP, CMP #### [facility] [address] [address] [address] Tasha Dodson LIVER PROFILEon 08-06-2021 Albumin [Mass/Vol] 3.7 g/dL Normal 3.4-5.0 [facility] Comment on above: Performed By: #### C MADM, LIPA, BNP, CMP #### [facility] [address] [address] [address] Tasha Dodson Albumin/Globulin [Mass ratio] 1.0 {ratio} [facility] Comment on above: Performed By: #### C MADM, LIPA, BNP, CMP #### [facility] [address] [address] [address] Tasha Dodson ALP [Catalytic activity/Vol] 62 U/L Normal 46-116 [facility] Comment on above: Performed By: #### C MADM, LIPA, BNP, CMP #### [facility] [address] [address] [address] Tasha Dodson ALT [Catalytic activity/Vol] 26 U/L Normal 14-59 [facility] Comment on above: Performed By: #### C MADM, LIPA, BNP, CMP #### [facility] [address] [address] [address] Tasha Dodson AST [Catalytic activity/Vol] 24 U/L Normal 15-37 [facility] Comment on above: Performed By: #### C MADM, LIPA, BNP, CMP #### [facility] [address] [address] [address] Tasha Dodson BILI, CONJUGATED 0.1 mg/dL Normal 0.0-0.2 [facility] Comment on above: Performed By: #### C MADM, LIPA, BNP, CMP #### [facility] [address] [place] [address] Dr. Tasha Dodson Bilirubin [Mass/Vol] 0.5 mg/dL Normal 0.2-1.0 [facility] Comment on above: Performed By: #### C MADM, LIPA, BNP, CMP #### [facility] [address] [place] [address] Dr. Tasha Dodson Globulin (S) [Mass/Vol] 3.8 g/dL Normal [facility] Comment on above: Performed By: #### C MADM, LIPA, BNP, CMP #### [facility] [address] [place] [address] Dr. Tasha Dodson Protein [Mass/Vol] 7.5 g/dL Normal 6.4-8.[address] [facility] Comment on above: Performed By: #### C MADM, LIPA, BNP, CMP #### [facility] [address] [place] [address] Dr. Tasha Dodson FREE T4on 07-28-2021 Free T4 [Mass/Vol] 1.32 ng/dL Normal 0.76-1.46 [facility] Comment on above: Performed By: #### T SH, BMP #### [facility] [address] [place] [address] Dr. Tasha Dodson PROF CHEM 8 (BAS METB)on Anion gap [Moles/Vol] 11.6 mmol/L Normal [facility] Comment on above: Performed By: #### B MP, TSH #### [facility] [address] [place] [address] Dr. Tasha Dodson Calcium [Mass/Vol] 9.4 mg/dL Normal 8.5-10.1 [facility] Comment on above: Performed By: #### B MP, TSH #### [facility] [address] [place] [address] Dr. Tasha Dodson Chloride [Moles/Vol] 93 mmol/L Critically low 98-107 [facility] Comment on above: Performed By: #### B MP, TSH #### [facility] [address] [address] [address] Tasha Dodson CO2 [Moles/Vol] 29.8 mmol/L Normal 21.0-32.0 [facility] Comment on above: Performed By: #### B MP, TSH #### [facility] [address] [address] [address] Tasha Dodson Creatinine [Mass/Vol] 0.74 mg/dL Normal 0.55-1.02 [facility] Comment on above: Performed By: #### B MP, TSH #### [facility] [address] [place] [address] Dr. Tasha Dodson EGFR-AF CITIZEN [place] >60 Normal >=60 [facility] Comment on above: Performed By: #### B MP, TSH #### [facility] [address] [place] [address] Dr. Tasha Dodson EGFR-NON AF CITIZEN OF [place] >60 Normal >=60 [facility] Comment on above: Performed By: #### B MP, TSH #### [facility] [address] [address] [address] Tasha Dodson Glucose [Mass/Vol] 114 mg/dL Critically high 74-106 [facility] Comment on above: Performed By: #### B MP, TSH #### [facility] [address] [address] [address] Tasha Dodson Potassium [Moles/Vol] 3.4 mmol/L Critically low 3.5-5.1 [facility] Comment on above: Performed By: #### B MP, TSH #### [facility] [address] [address] [address] Tasha Dodson Sodium [Moles/Vol] 131 mmol/L Critically low 136-145 Th [facility] Comment on above: Performed By: #### B MP, TSH #### [facility] [address] [address] [address] Tasha Dodson Urea nitrogen [Mass/Vol] 12.0 mg/dL Normal 7.0-18.0 [facility] Comment on above: Performed By: #### B MP, TSH #### [facility] [address] [address] [address] Tasha Dodson Urea nitrogen/Creatinine [Mass ratio] 16.2 mg/mg [facility] Comment on above: Performed By: #### B MP, TSH #### [facility] [address] [address] [address] Tasha Dodson TSHon 07-28-2021 TSH 1.790 uIU/mL Normal 0.358-3.740 [facility] Comment on above: Performed By: #### B MP, TSH #### [facility] [address] [place] [address] Dr. Tasha Dodson TSH RANGE SEE BELOW Normal [facility] Comment on above: Result Comment: <0.3 4 UIU/ml HYPERTHYROID 0.34-5.60 UIU/ml EUTHYROID >5.60 UIU/ml HYPOTHYROID Performed By: #### B MP, TSH #### [facility] [address] [address] [address] Tasha Dodson CBC Auto Differentialon 10-0 Basophils (Bld) [#/Vol] 0.1 10*3/uL 0 - 0.2 K/uL [place] Basophils/100 WBC (Bld) 1.1 % [place] Eosinophils (Bld) [#/Vol] 0.2 10*3/uL 0 - 0.7 K/uL [place] Eosinophils/100 WBC (Bld) 1.4 % [place] Erythrocyte distribution width (RBC) [Ratio] 14.4 % 11.5 - 14.5 % [place] Hematocrit (Bld) [Volume fraction] 33.6 % Low 37 - 47 % [place] Hemoglobin (Bld) [Mass/Vol] 11.1 g/dL Low 12 - 16 g/dL [place] Interpretation and review of laboratory results Abnormal [place] Lymphocytes (Bld) [#/Vol] 2.3 10*3/uL 1 - 4.8 K/uL [place] Lymphocytes/100 WBC (Bld) 18.0 % [place] MCH (RBC) [Entitic mass] 29.5 pg 27 - 31.3 pg [place] MCHC (RBC) [Mass/Vol] 33.0 % 33 - 37 % [place] MCV (RBC) [Entitic vol] 89.5 fL 82 - 100 fL [place] Monocytes (Bld) [#/Vol] 0.9 10*3/uL High 0.2 - 0.8 K/uL [place] Monocytes/100 WBC (Bld) 6.9 % [place] Neutrophils Absolute 9.1 K/uL High 1.4 - 6 .5 K/uL [place] Neutrophils/100 WBC (Bld) 72.6 % [place] Platelets (Bld) [#/Vol] 548 10*3/uL High 130 - 400 K/uL [place] RBC (Bld) [#/Vol] 3.75 10*6/uL Low [place] WBC (Bld) [#/Vol] 12.5 10*3/uL High 4.8 - 10.8 K/uL [place] CBC With Platelet and Differ entialon 11-20-2018 Basophils (Bld) [#/Vol] 0.1 10*3/uL Normal 0.0-0.2 [facility] Comment on above: Performed By: #### E SR #### [facility] [address] [facility] [address] Basophils/100 WBC (Bld) 1.1 % Normal [facility] Comment on above: Performed By: #### E SR #### [facility] [address] [facility] [address] Eosinophils (Bld) [#/Vol] 0.2 10*3/uL Normal 0.0-0.7 [facility] Comment on above: Performed By: #### E SR #### [facility] [address] [place] [address] Eosinophils/100 WBC (Bld) 1.4 % Normal [facility] Comment on above: Performed By: #### E SR #### [facility] [address] [place] [address] Erythrocyte distribution width (RBC) [Ratio] 14.4 % Normal 11.5-14.5 [facility] Comment on above: Performed By: #### E SR #### [facility] [address] [place] [address] Hematocrit (Bld) [Volume fraction] 33.6 % Low 37.0-47.0 [facility] Comment on above: Performed By: #### E SR #### [facility] [address] [place] [address] Hemoglobin (Bld) [Mass/Vol] 11.1 g/dL Low 12.0-16.0 [facility] Comment on above: Performed By: #### E SR #### [facility] [address] [place] [address] Lymphocytes (Bld) [#/Vol] 2.3 10*3/uL Normal 1.0-4.8 [facility] Comment on above: Performed By: #### E SR #### [facility] [address] [place] [place] [address] Lymphocytes/100 WBC (Bld) 18.0 % Normal [facility] Comment on above: Performed By: #### E SR #### [facility] [address] [place] [address] MCH (RBC) [Entitic mass] 29.5 pg Normal 27.0-31.3 [facility] Comment on above: Performed By: #### E SR #### [facility] [address] [place] [address] MCHC (RBC) [Mass/Vol] 33.0 % Normal 33.0-37.0 [facility] Comment on above: Performed By: #### E SR #### [facility] [address] [place] [address] MCV (RBC) [Entitic vol] 89.5 fL Normal 82.0-100.0 [facility] [place] Comment on above: Performed By: #### E SR #### [facility] [address] [place] [address] Monocytes (Bld) [#/Vol] 0.9 10*3/uL Critically high 0.2-0. 8 [facility] Comment on above: Performed By: #### E SR #### [facility] [address] [place] [address] Monocytes/100 WBC (Bld) 6.9 % Normal [facility] Comment on above: Performed By: #### E SR #### [facility] [address] [place] [address] Neutrophils (Bld) [#/Vol] 9.1 10*3/uL Critically high 1.4-6.5 [facility] Comment on above: Performed By: #### E SR #### [facility] [address] [place] [address] Neutrophils/100 WBC (Bld) 72.6 % Normal [facility] Comment on above: Performed By: #### E SR #### [facility] [address] [place] [address] Platelets (Bld) [#/Vol] 548 10*3/uL Critically high 130-40 0 [facility] Comment on above: Performed By: #### E SR #### [facility] [address] [place] [address] RBC (Bld) [#/Vol] 3.75 10*6/uL Low 4.20-5.40 [facility] Comment on above: Performed By: #### E SR #### [facility] [address] [place] [address] WBC (Bld) [#/Vol] 12.5 10*3/uL Critically high 4.8-10.8 [facility] Comment on above: Performed By: #### E SR #### [facility] [address] [place] [address] EKG 12 Leadon 11-20-2018 Atrial Rate 79 BPM [place] P [place] 58 degrees [place] P-R Interval 176 ms [place] Q-T Interval 404 ms [facility] [place] QRS Duration 130 ms [place] QTc Calculation (Bazett) 463 ms [place] R [place] -11 degrees [facility] [place] T [place] 5 degrees [place] Urea nitrogen [Mass/Vol] Normal sinus rhythm Right bundle branch block Moderate voltage criteria for LVH, may be normal variant Abnormal ECG When compared with ECG of 13-NOV-2018 08:33, No significant change was found Confirmed by Анна Zamarripa ([id number]) on 11/20/2018 9:39:56 AM [place] Ventricular Rate 79 BPM [place] Joseph, Chpo Incoming Results From [place] - 11/20/2018 9:40 AM EDT Normal sinus rhythm Right bundle branch block Moderate voltage criteria for LVH, may be normal variant Abnormal ECG When compared with ECG of 13-NOV-2018 08:33, No significant change was found Confirmed by Анна Zamarripa ([id number]) on 11/20/2018 9:39:56 AM [place] CBC Auto Differentialon 10-23 Neutrophils Absolute 6.1 K/uL 1.4 - 6 .5 K/uL [place] CBC With Platelet and Differ entialon 11-19-2018 Basophils (Bld) [#/Vol] 0.2 10*3/uL Normal 0.0-0.2 [place] Comment on above: Performed By: #### C MP #### [facility] [address] [place] [address] Basophils/100 WBC (Bld) 1.5 % Normal [place] Comment on above: Performed By: #### C MP #### [facility] [address] [place] [address] Eosinophils (Bld) [#/Vol] 0.3 10*3/uL Normal 0.0-0.7 [place] Comment on above: Performed By: #### C MP #### [facility] [address] [place] [address] Eosinophils/100 WBC (Bld) 2.5 % Normal [place] Comment on above: Performed By: #### C MP #### [facility] [address] [place] [address] Erythrocyte distribution width (RBC) [Ratio] 14.1 % Normal 11.5-14.5 [place] Comment on above: Performed By: #### C MP #### [facility] [address] [place] [address] Hematocrit (Bld) [Volume fraction] 29.3 % Low 37.0-47.0 [place] Comment on above: Performed By: #### C MP #### [facility] [address] [place] [address] Hemoglobin (Bld) [Mass/Vol] 10.1 g/dL Low 12.0-16.0 [place] Comment on above: Performed By: #### C MP #### [facility] [address] [place] [address] Lymphocytes (Bld) [#/Vol] 2.8 10*3/uL Normal 1.0-4.8 [place] Comment on above: Performed By: #### C MP #### [facility] [address] [place] [address] Lymphocytes/100 WBC (Bld) 27.3 % Normal [place] Comment on above: Performed By: #### C MP #### [facility] [address] [place] [address] MCH (RBC) [Entitic mass] 30.7 pg Normal 27.0-31.3 [place] Comment on above: Performed By: #### C MP #### [facility] [address] [place] [address] MCHC (RBC) [Mass/Vol] 34.6 % Normal 33.0-37.0 [place] Comment on above: Performed By: #### C MP #### [facility] [address] [place] [address] MCV (RBC) [Entitic vol] 88.9 fL Normal 82.0-100.0 [place] Comment on above: Performed By: #### C MP #### [facility] [address] [place] [address] Monocytes (Bld) [#/Vol] 0.9 10*3/uL Critically high 0.2-0. 8 [place] Comment on above: Performed By: #### C MP #### [facility] [address] [place] [address] Monocytes/100 WBC (Bld) 9.2 % Normal [place] Comment on above: Performed By: #### C MP #### [facility] [address] [place] [address] Neutrophils (Bld) [#/Vol] 6.1 10*3/uL Normal 1.4-6.5 [facility] Comment on above: Performed By: #### C MP #### [facility] [address] [facility] [place] [address] Neutrophils/100 WBC (Bld) 59.5 % Normal [place] Comment on above: Performed By: #### C MP #### [facility] [address] [facility] [place] [address] Platelets (Bld) [#/Vol] 396 10*3/uL Normal 130-400 [place] Comment on above: Performed By: #### C MP #### [facility] [address] [facility] [place] [address] RBC (Bld) [#/Vol] 3.30 10*6/uL Low 4.20-5.40 [place] Comment on above: Performed By: #### C MP #### [facility] [address] [place] [address] WBC (Bld) [#/Vol] 10.2 10*3/uL Normal 4.8-10.8 [place] Comment on above: Performed By: #### C MP #### [facility] [address] [place] [address] High Sensitivity CRPon 11-19 High Sensitivity CRP 89.2 mg/L Critically high 0.0-5.0 [facility] Comment on above: Performed By: #### E SR #### [facility] [address] [place] [address] High sensitivity CRPon 11-19 CRP High Sensitivity 89.2 mg/L High 0 - 5 mg/L [place] Interpretation and review of laboratory results Abnormal [place] Otheron 11-19-2018 Interpretation and review of laboratory results Abnormal [place] Sedimentation Rateon 019 Sedimentation Rate 55 mm Critically high 0-30 M [facility] Comment on above: Performed By: #### C MP #### [facility] [address] [place] [address] Sed Rate 55 mm High 0 - 30 mm [place] Basic Metabolic Panelon 10-22 Anion gap [Moles/Vol] 14 mmol/L Normal 9-15 [facility] Comment on above: Performed By: #### C MP #### [facility] [address] [place] [address] Calcium [Mass/Vol] 8.8 mg/dL Normal 8.5-9.9 [facility] Comment on above: Performed By: #### C MP #### [facility] [address] [place] [address] Chloride [Moles/Vol] 95 mmol/L Normal 95-107 [facility] Comment on above: Performed By: #### C MP #### [facility] [address] [place] [address] CO2 [Moles/Vol] 26 mmol/L Normal 20-31 [facility] Comment on above: Performed By: #### C MP #### [facility] [address] [place] [address] Creatinine [Mass/Vol] 0.58 mg/dL Normal 0.50-0.90 [facility] Comment on above: Performed By: #### C MP #### [facility] [address] [place] [address] GFR/1.73 sq M predicted among blacks MDRD (S/P/Bld) [Vol rate/Area] mL/min/{1.73_m2} Normal >60 [facility] Comment on above: Result Comment: >60 mL/min/1.73m2 EGFR, calc. for ages 18 and older using the MDRD formula (not corrected for weight), is valid for stable renal function. Performed By: #### C MP #### [facility] [address] [place] [address] GFR/1.73 sq M.predicted MDRD (S/P/Bld) [Vol rate/Area] mL/min/{1.73_m2} Normal >60 [facility] Comment on above: Result Comment: >60 mL/min/1.73m2 EGFR, calc. for ages 18 and older using the MDRD formula (not corrected for weight), is valid for stable renal function. Performed By: #### C MP #### [facility] [address] [place] [address] Glucose [Mass/Vol] 156 mg/dL Critically high 70-99 [facility] Comment on above: Performed By: #### C MP #### [facility] [address] [place] [address] Potassium [Moles/Vol] 3.3 mmol/L Low 3.4-4.9 [facility] Comment on above: Performed By: #### C MP #### [facility] [address] [place] [address] Sodium [Moles/Vol] 135 mmol/L Normal 135-144 [facility] Comment on above: Performed By: #### C MP #### [facility] [address] [place] [address] Urea nitrogen [Mass/Vol] 11 mg/dL Normal 8-23 [facility] Comment on above: Performed By: #### C MP #### [facility] [address] [place] [address] Anion gap [Moles/Vol] 14 mmol/L [place] Calcium [Mass/Vol] 8.8 mg/dL 8.5 - 9.9 mg/dL [place] Chloride [Moles/Vol] 95 mmol/L [place] CO2 [Moles/Vol] 26 mmol/L [place] Creatinine [Mass/Vol] 0.58 mg/dL 0.5 - 0.9 mg/dL [place] GFR >60.0 >60 [place] Comment on above: >60 mL/min/1.73m2 EG FR, calc. for ages 18 and older using the MDRD formula (not corrected for weight), is valid for stable renal function. GFR Non- >60.0 >60 [place] Comment on above: >60 mL/min/1.73m2 EG FR, calc. for ages 18 and older using the MDRD formula (not corrected for weight), is valid for stable renal function. Glucose [Mass/Vol] 156 mg/dL High 70 - 99 mg/dL [place] Interpretation and review of laboratory results Abnormal [place] Potassium [Moles/Vol] 3.3 mmol/L [place] Sodium [Moles/Vol] 135 mmol/L [place] Urea nitrogen [Mass/Vol] 11 mg/dL 8 - 23 mg/dL [place] Magnesiumon 11-18-2018 Magnesium [Mass/Vol] 1.8 mg/dL Normal 1.7-2.4 [facility] Comment on above: Performed By: #### C MP #### [facility] [address] [place] [address] Magnesium [Mass/Vol] 1.8 mg/dL 1.7 - 2 .4 mg/dL [place] TSH w/out Reflexon 9 TSH Qn 0.880 uIU/mL Normal 0.440-3.86 [facility] Comment on above: Performed By: #### C MP #### [facility] [address] [place] [address] TSH without Reflexon 019 TSH Qn 0.880 m[IU]/L [place] CBC Auto Differentialon 10-22 Basophils (Bld) [#/Vol] 0.1 10*3/uL 0 - 0.2 K/uL [place] Basophils/100 WBC (Bld) 0.7 % [place] Eosinophils (Bld) [#/Vol] 0.4 10*3/uL 0 - 0.7 K/uL [place] Eosinophils/100 WBC (Bld) 2.8 % [place] Erythrocyte distribution width (RBC) [Ratio] 14.2 % 11.5 - 14.5 % [place] Hematocrit (Bld) [Volume fraction] 32.3 % Low 37 - 47 % [place] Hemoglobin (Bld) [Mass/Vol] 10.8 g/dL Low 12 - 16 g/dL [place] Interpretation and review of laboratory results Abnormal [place] Lymphocytes (Bld) [#/Vol] 2.6 10*3/uL 1 - 4.8 K/uL [place] Lymphocytes/100 WBC (Bld) 16.8 % [place] MCH (RBC) [Entitic mass] 30.3 pg 27 - 31.3 pg [place] MCHC (RBC) [Mass/Vol] 33.4 % 33 - 37 % [place] MCV (RBC) [Entitic vol] 90.5 fL 82 - 100 fL [place] Monocytes (Bld) [#/Vol] 1.3 10*3/uL High 0.2 - 0.8 K/uL [place] Monocytes/100 WBC (Bld) 8.3 % [place] Neutrophils Absolute 11.1 K/uL High 1.4 - 6 .5 K/uL [place] Neutrophils/100 WBC (Bld) 71.4 % [place] Platelets (Bld) [#/Vol] 375 10*3/uL 130 - 400 K/uL [place] RBC (Bld) [#/Vol] 3.57 10*6/uL Low [place] WBC (Bld) [#/Vol] 15.5 10*3/uL High 4.8 - 10.8 K/uL [place] CBC With Platelet and Differ entialon 11-17-2018 Basophils (Bld) [#/Vol] 0.1 10*3/uL Normal 0.0-0.2 [facility] Comment on above: Performed By: #### C MP #### [facility] [address] [place] [address] Basophils/100 WBC (Bld) 0.7 % Normal [facility] [place] Comment on above: Performed By: #### C MP #### [facility] [address] [place] [address] Eosinophils (Bld) [#/Vol] 0.4 10*3/uL Normal 0.0-0.7 [facility] Comment on above: Performed By: #### C MP #### [facility] [address] [place] [address] Eosinophils/100 WBC (Bld) 2.8 % Normal [facility] Comment on above: Performed By: #### C MP #### [facility] [address] [place] [address] Erythrocyte distribution width (RBC) [Ratio] 14.2 % Normal 11.5-14.5 [facility] Comment on above: Performed By: #### C MP #### [facility] [address] [place] [address] Hematocrit (Bld) [Volume fraction] 32.3 % Low 37.0-47.0 [facility] Comment on above: Performed By: #### C MP #### [facility] [address] [place] [address] Hemoglobin (Bld) [Mass/Vol] 10.8 g/dL Low 12.0-16.0 [facility] Comment on above: Performed By: #### C MP #### [facility] [address] [place] [address] Lymphocytes (Bld) [#/Vol] 2.6 10*3/uL Normal 1.0-4.8 [facility] Comment on above: Performed By: #### C MP #### [facility] [address] [place] [address] Lymphocytes/100 WBC (Bld) 16.8 % Normal [facility] Comment on above: Performed By: #### C MP #### [facility] [address] [place] [address] MCH (RBC) [Entitic mass] 30.3 pg Normal 27.0-31.3 [facility] Comment on above: Performed By: #### C MP #### [facility] [address] [place] [address] MCHC (RBC) [Mass/Vol] 33.4 % Normal 33.0-37.0 [facility] Comment on above: Performed By: #### C MP #### [facility] [address] [place] [address] MCV (RBC) [Entitic vol] 90.5 fL Normal 82.0-100.0 [facility] Comment on above: Performed By: #### C MP #### [facility] [address] [place] [address] Monocytes (Bld) [#/Vol] 1.3 10*3/uL Critically high 0.2-0. 8 [facility] Comment on above: Performed By: #### C MP #### [facility] [address] [place] [address] Monocytes/100 WBC (Bld) 8.3 % Normal [facility] Comment on above: Performed By: #### C MP #### [facility] [address] [place] [address] Neutrophils (Bld) [#/Vol] 11.1 10*3/uL Critically high 1.4-6.5 [facility] Comment on above: Performed By: #### C MP #### [facility] [address] [place] [address] Neutrophils/100 WBC (Bld) 71.4 % Normal [facility] Comment on above: Performed By: #### C MP #### [facility] [address] [place] [address] Platelets (Bld) [#/Vol] 375 10*3/uL Normal 130-400 [facility] Comment on above: Performed By: #### C MP #### [facility] [address] [place] [address] RBC (Bld) [#/Vol] 3.57 10*6/uL Low 4.20-5.40 [facility] Comment on above: Performed By: #### C MP #### [facility] [address] [place] [address] WBC (Bld) [#/Vol] 15.5 10*3/uL Critically high 4.8-10.8 [facility] Comment on above: Performed By: #### C MP #### [facility] [address] [place] [address] High Sensitivity CRPon 11-17 High Sensitivity CRP 230.1 mg/L Critically high 0.0-5.0 [facility] Comment on above: Performed By: #### C MP #### [facility] [address] [place] [address] High sensitivity CRPon 11-17 CRP High Sensitivity 230.1 mg/L High 0 - 5 mg/L [place] Interpretation and review of laboratory results Abnormal [place], [place] Sedimentation Rateon 2 019 Sedimentation Rate 50 mm Critically high 0-30 [facility] Comment on above: Performed By: #### C MP #### [facility] [address] [place] [address] Interpretation and review of laboratory results Abnormal [place] Sed Rate 50 mm High 0 - 30 mm [place] DUP LOWER EXTREMITIES VAUGHN ATERAL VENOUSon 11-17-2018 NO DVT IDENTIFIED IN EITHER LOWER EXTREMITY. [place] Joseph, Chpo Incoming Radiant Results From [facility] - 11/17/2018 8:05 AM EDT [place] DUP [...] NO DVT IDENTIFIED IN EITHER LOWER EXTREMITY. [place] DUP LOWER EXTREMITIES BILATERAL VENOUS : 11/16/2018 CLINICAL HISTORY: LEG SWELLING, PAIN, DVT SUSPECTED . COMPARISON: None available. Grayscale, compression, color and waveform Doppler analysis of both lower extremity deep venous systems was performed with augmentation. FINDINGS: There is no deep venous thrombosis, abnormal masses, fluid collections or other findings of concern identified within either lower extremity. [place] Urine Cultureon 11-17-2018 Bacteria identified Cx Nom (U) No growth 24 hours [place], [place] ORDERED BY: ADDY COKER SOURCE: Urine Clean Catch COLLECTED: 11/15/18 19:05 ANTIBIOTICS AT DI.: RECEIVED : 11/15/18 19:05 [place] CBC With Platelet and Differ entialon 11-16-2018 Neutrophils (Bld) [#/Vol] 15.5 10*3/uL Critically high 1.4-6.5 [facility] Comment on above: Performed By: #### P TT #### [facility] [address] [place] [address] Basophils (Bld) [#/Vol] 0.2 10*3/uL Normal 0.0-0.2 [place] Comment on above: Performed By: #### P TT #### [facility] [address] [place] [address] Basophils/100 WBC (Bld) 0.9 % Normal [place] Comment on above: Performed By: #### P TT #### [facility] [address] [place] [address] Eosinophils (Bld) [#/Vol] 0.1 10*3/uL Normal 0.0-0.7 [place] Comment on above: Performed By: #### P TT #### [facility] [address] [place] [address] Eosinophils/100 WBC (Bld) 0.8 % Normal [place] Comment on above: Performed By: #### P TT #### [facility] [address] [place] [address] Erythrocyte distribution width (RBC) [Ratio] 14.4 % Normal 11.5-14.5 [place] Comment on above: Performed By: #### P TT #### [facility] [address] [place] [address] Hematocrit (Bld) [Volume fraction] 33.4 % Low 37.0-47.0 [place] Comment on above: Performed By: #### P TT #### [facility] [address] [place] [address] Hemoglobin (Bld) [Mass/Vol] 11.0 g/dL Low 12.0-16.0 [place] Comment on above: Performed By: #### P TT #### [facility] [address] [place] [address] Lymphocytes (Bld) [#/Vol] 1.5 10*3/uL Normal 1.0-4.8 [place] Comment on above: Performed By: #### P TT #### [facility] [address] [place] [address] Lymphocytes/100 WBC (Bld) 7.9 % Normal [place] Comment on above: Performed By: #### P TT #### [facility] [address] [place] [address] MCH (RBC) [Entitic mass] 29.4 pg Normal 27.0-31.3 [place] Comment on above: Performed By: #### P TT #### [facility] [address] [place] [address] MCHC (RBC) [Mass/Vol] 32.9 % Low 33.0-37.0 [place] Comment on above: Performed By: #### P TT #### [facility] [address] [facility] [place] [address] MCV (RBC) [Entitic vol] 89.4 fL Normal 82.0-100.0 [place] Comment on above: Performed By: #### P TT #### [facility] [address] [facility] [place] [address] Monocytes (Bld) [#/Vol] 1.3 10*3/uL Critically high 0.2-0. 8 [place] Comment on above: Performed By: #### P TT #### [facility] [address] [facility] [place] [address] Monocytes/100 WBC (Bld) 7.1 % Normal [place] Comment on above: Performed By: #### P TT #### [facility] [address] [place] [address] Neutrophils/100 WBC (Bld) 83.3 % Normal [place] Comment on above: Performed By: #### P TT #### [facility] [address] [place] [address] Platelets (Bld) [#/Vol] 304 10*3/uL Normal 130-400 [place] Comment on above: Performed By: #### P TT #### [facility] [address] [place] [address] RBC (Bld) [#/Vol] 3.74 10*6/uL Low 4.20-5.40 [place] Comment on above: Performed By: #### P TT #### [facility] [address] [facility] [address] WBC (Bld) [#/Vol] 18.6 10*3/uL Critically high 4.8-10.8 [place] Comment on above: Performed By: #### P TT #### [facility] [address] [facility] [address] CBC auto differentialon 10-22 Interpretation and review of laboratory results Abnormal [place] Neutrophils Absolute 15.5 K/uL High 1.4 - 6 .5 K/uL [place] ECHO Complete 2D W Doppler W Color[place] 11-16-2018 Transthoracic Echocardiography Report (TTE) Demographics Patient Name MER[facility] GANDHI Gender Female Patient Number [id number] Race Unknown Ethnicity Visit Number [id number] Room Number R238 Corporate ID Date of Study 11/16/2018 Referring Physician Niki Vazquez DO Number Date of 1935 [employer] [address] Age 83 year(s) Interpreting [facility] Physician Cardiology Cain Quinonez MD Procedure [...] Gradient: 4.03 mmHg Estimated PASP: 40.86 mmHg DE ED Velocity: 1.27 m/s LVOT Peak Velocity: [...] Root: 2.35 cm LVOT Diameter: 1.65 cm [facility]- [place], [place] Joseph, Chpo Incoming Cardiovascular Results From [facility] - 11/16/2018 5:05 PM EDT Transthoracic Echocardiography Report (TTE) Demographics Patient Name MADRID HIRAM Gender Female Patient Number [id number] Race Unknown Ethnicity Visit Number [id number] Room Number R238 Corporate ID Date of Study 11/16/2018 Referring Physician DO Natalia Dickens Date of 1935 [employer] Picture [employer] 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 Age 83 year(s) Interpreting [facility] Physician Cardiology Cain Quinonez MD Procedure [...] Gradient: 4.03 mmHg Estimated PASP: 40.86 mmHg DE ED Velocity: 1.27 m/s LVOT Peak Velocity: [...] Root: 2.35 cm LVOT Diameter: 1.65 cm [place] Microscopic Urinalysison Bacteria, UA Negative /HPF [place] Epi Cells 3-5 /HPF [place] Interpretation and review of laboratory results Abnormal [place] RBC (U) [#/Vol] 3-5 Abnormal [place] Renal Epithelial, Urine 0-2 Abnormal /HPF [place] WBC, UA None seen [place] CAROTID ARTERY BILATERALo n 11-16-2018 [...] Damped resistive CCA decreased decreased resistive CCA [place] Joseph, Chpo Incoming Radiant Results From [facility] - 11/16/2018 10:40 AM EDT Patient : [...] Damped resistive CCA decreased decreased resistive CCA [facility] [place] Patient 5 : 1935 Age: 83 years [...] and noncalcified plaque bilateral carotid arterial systems [place] DUP LOWER EXTREMITIES VAUGHN ATERAL [...] De Souza MD 11/17/18 Final result Normal [facility] Urine Microscopicon 11-17-19 19 Bacteria LM.HPF (Urine sed) [#/Area] Negative Normal [facility] Comment on above: Performed By: #### P TT #### [facility] [address] [place] [address] Epithelial cells LM Ql (Urine sed) 3-5 Normal [facility] Comment on above: Performed By: #### P TT #### [facility] [address] [place] [address] RBC (U) [#/Vol] 3-5 Abnormal 0-2 [facility] Comment on above: Performed By: #### P TT #### [facility] [address] [place] [address] Urine Renal Epithelial 0-[address] [facility] Comment on above: Performed By: #### P TT #### [facility] [address] [place] [address] WBC (U) [#/Vol] None seen Normal 0-5 [facility] Comment on above: Performed By: #### P TT #### [facility] [address] [place] [address] XR CHEST PORTABLEon 11-17-19 19 Joseph, Chpo Incoming Radiant Results From [facility] - 11/16/2018 10:21 AM EDT EXAMINATION: XR CHEST PORTABLE CLINICAL HISTORY: fever . History of back surgery. COMPARISONS: None available. FINDINGS: Single AP portable view the chest obtained on November 15, 2018 at 2124 hours. The heart is not enlarged. Mediastinum is not widened. Calcified aorta is not dilated. Lungs are clear. The chest wall is unremarkable. CONCLUSION: NO ACUTE PROCESS [place] EXAMINATION: XR CHES T PORTABLE CLINICAL HISTORY: fever . History of back surgery. COMPARISONS: None available. FINDINGS: Single AP portable view the chest obtained on November 15, 2018 at 2124 hours. The heart is not enlarged. Mediastinum is not widened. Calcified aorta is not dilated. Lungs are clear. The chest wall is unremarkable. CONCLUSION: NO ACUTE PROCESS [place] CBC Auto Differentialon 10-22 Anisocytosis Ql (Bld) 1+ [place] Bands Relative 4 % Low 5 - 11 % [place] Basophils (Bld) [#/Vol] 0.0 10*3/uL 0 - 0.2 K/uL [place] Basophils/100 WBC (Bld) 0.6 % [place] Eosinophils (Bld) [#/Vol] 0.0 10*3/uL 0 - 0.7 K/uL [place] Eosinophils/100 WBC (Bld) 0.9 % [place] Erythrocyte distribution width (RBC) [Ratio] 14.6 % High 11.5 - 14.5 % [place] Hematocrit (Bld) [Volume fraction] 33.3 % Low 37 - 47 % [place] Hemoglobin (Bld) [Mass/Vol] 10.9 g/dL Low 12 - 16 g/dL [place] Interpretation and review of laboratory results Abnormal [place] Lymphocytes (Bld) [#/Vol] 3.5 10*3/uL 1 - 4.8 K/uL [place] Lymphocytes/100 WBC (Bld) 17.0 % [place] MCH (RBC) [Entitic mass] 29.8 pg 27 - 31.3 pg [place] MCHC (RBC) [Mass/Vol] 32.9 % Low 33 - 37 % [place] MCV (RBC) [Entitic vol] 90.7 fL 82 - 100 fL [place] Microcytes 1+ [place] Monocytes (Bld) [#/Vol] 0.0 10*3/uL Low 0.2 - 0.8 K/uL [place] Monocytes/100 WBC (Bld) 7.7 % [place] Neutrophils Absolute 17.3 K/uL High 1.4 - 6 .5 K/uL [place] Neutrophils/100 WBC (Bld) 79.0 % [place] PLATELET SLIDE REVIEW Normal [place] Platelets (Bld) [#/Vol] 315 10*3/uL 130 - 400 K/uL [place] RBC (Bld) [#/Vol] 3.67 10*6/uL Low [place] WBC (Bld) [#/Vol] 20.8 10*3/uL High 4.8 - 10.8 K/uL [place] CBC With Platelet No Differe ntialon 11-15-2018 Erythrocyte distribution width (RBC) [Ratio] 14.5 % Normal 11.5-14.5 [facility] Comment on above: Performed By: #### P TT #### [facility] [address] [place] [address] Hematocrit (Bld) [Volume fraction] 36.9 % Low 37.0-47.0 [facility] Comment on above: Performed By: #### P TT #### [facility] [address] [place] [address] Hemoglobin (Bld) [Mass/Vol] 11.9 g/dL Low 12.0-16.0 [facility] Comment on above: Performed By: #### P TT #### [facility] [address] [place] [address] MCH (RBC) [Entitic mass] 29.4 pg Normal 27.0-31.3 [facility] Comment on above: Performed By: #### P TT #### [facility] [address] [place] [address] MCHC (RBC) [Mass/Vol] 32.3 % Low 33.0-37.0 [facility] Comment on above: Performed By: #### P TT #### [facility] [address] [place] [address] MCV (RBC) [Entitic vol] 91.1 fL Normal 82.0-100.0 [facility] Comment on above: Performed By: #### P TT #### [facility] [address] [place] [address] Platelets (Bld) [#/Vol] 341 10*3/uL Normal 130-400 [facility] Comment on above: Performed By: #### P TT #### [facility] [address] [place] [address] RBC (Bld) [#/Vol] 4.05 10*6/uL Low 4.20-5.40 [facility] Comment on above: Performed By: #### P TT #### [facility] [address] [place] [address] WBC (Bld) [#/Vol] 19.8 10*3/uL Critically high 4.8-10.8 [facility] Comment on above: Performed By: #### P TT #### [facility] [address] [place] [address] CBC With Platelet and Differ entialon 11-15-2018 Anisocytosis Ql (Bld) 1+ Normal [facility] Comment on above: Performed By: #### P TT #### [facility] [address] [place] [address] Bands 4 % Low 5-11 [facility] Comment on above: Performed By: #### P TT #### [facility] [address] [place] [address] Basophils (Bld) [#/Vol] 0.0 10*3/uL Normal 0.0-0.2 [facility] Comment on above: Performed By: #### P TT #### [facility] [address] [place] [address] Basophils/100 WBC (Bld) 0.6 % Normal [facility] Comment on above: Performed By: #### P TT #### [facility] [address] [place] [address] Eosinophils (Bld) [#/Vol] 0.0 10*3/uL Normal 0.0-0.7 [facility] Comment on above: Performed By: #### P TT #### [facility] [address] [place] [address] Eosinophils/100 WBC (Bld) 0.9 % Normal [facility] Comment on above: Performed By: #### P TT #### [facility] [address] [place] [address] Lymphocytes (Bld) [#/Vol] 3.5 10*3/uL Normal 1.0-4.8 [facility] Comment on above: Performed By: #### P TT #### [facility] [address] [place] [address] Lymphocytes/100 WBC (Bld) 17.0 % Normal [facility] Comment on above: Performed By: #### P TT #### [facility] [address] [place] [address] Microcytic 1+ Normal [facility] Comment on above: Performed By: #### P TT #### [facility] [address] [place] [address] Monocytes (Bld) [#/Vol] 0.0 10*3/uL Low 0.2-0.8 [facility] Comment on above: Performed By: #### P TT #### [facility] [address] [place] [address] Monocytes/100 WBC (Bld) 7.7 % Normal [facility] Comment on above: Performed By: #### P TT #### [facility] [address] [place] [address] Neutrophils (Bld) [#/Vol] 17.3 10*3/uL Critically high 1.4-6.5 [facility] Comment on above: Performed By: #### P TT #### [facility] [address] [place] [address] Neutrophils/100 WBC (Bld) 79.0 % Normal [facility] Comment on above: Performed By: #### P TT #### [facility] [address] [place] [address] Platelet Slide Review Normal Normal [facility] Comment on above: Performed By: #### P TT #### [facility] [address] [place] [address] Erythrocyte distribution width (RBC) [Ratio] 14.6 % Critically high 11.5-14.5 [facility] Comment on above: Performed By: #### P TT #### [facility] [address] [place] [address] Hematocrit (Bld) [Volume fraction] 33.3 % Low 37.0-47.0 [facility] Comment on above: Performed By: #### P TT #### [facility] [address] [place] [address] Hemoglobin (Bld) [Mass/Vol] 10.9 g/dL Low 12.0-16.0 [facility] Comment on above: Performed By: #### P TT #### [facility] [address] [place] [address] MCH (RBC) [Entitic mass] 29.8 pg Normal 27.0-31.3 [facility] Comment on above: Performed By: #### P TT #### [facility] [address] [place] [address] MCHC (RBC) [Mass/Vol] 32.9 % Low 33.0-37.0 [facility] Comment on above: Performed By: #### P TT #### [facility] [address] [place] [address] MCV (RBC) [Entitic vol] 90.7 fL Normal 82.0-100.0 [facility] Comment on above: Performed By: #### P TT #### [facility] [address] [place] [address] Platelets (Bld) [#/Vol] 315 10*3/uL Normal 130-400 [facility] Comment on above: Performed By: #### P TT #### [facility] [address] [place] [address] RBC (Bld) [#/Vol] 3.67 10*6/uL Low 4.20-5.40 [facility] Comment on above: Performed By: #### P TT #### [facility] [address] [place] [address] WBC (Bld) [#/Vol] 20.8 10*3/uL Critically high 4.8-10.8 [facility] Comment on above: Performed By: #### P TT #### [facility] [address] [place] [address] Comprehensive Metabolic Pane l reflex Mgon 11-15-2018 Albumin [Mass/Vol] 3.3 g/dL Low 3.5-4.6 [facility] Comment on above: Performed By: #### P TT #### [facility] [address] [place] [address] ALP [Catalytic activity/Vol] 71 U/L Normal 40-130 [facility] Comment on above: Performed By: #### P TT #### [facility] [address] [place] [address] ALT [Catalytic activity/Vol] 12 U/L Normal 0-33 [facility] Comment on above: Performed By: #### P TT #### [facility] [address] [place] [address] Anion gap [Moles/Vol] 11 mmol/L Normal 9-15 [facility] Comment on above: Performed By: #### P TT #### [facility] [address] [place] [address] AST [Catalytic activity/Vol] 28 U/L Normal 0-35 [facility] Comment on above: Performed By: #### P TT #### [facility] [address] [place] [address] Bilirubin [Mass/Vol] 0.4 mg/dL Normal 0.2-0.7 [facility] Comment on above: Performed By: #### P TT #### [facility] [address] [place] [address] Calcium [Mass/Vol] 9.1 mg/dL Normal 8.5-9.9 [facility] Comment on above: Performed By: #### P TT #### [facility] [address] [place] [address] Chloride [Moles/Vol] 98 mmol/L Normal 95-107 [facility] Comment on above: Performed By: #### P TT #### [facility] [address] [place] [address] CO2 [Moles/Vol] 27 mmol/L Normal 20-31 [facility] Comment on above: Performed By: #### P TT #### [facility] [address] [place] [address] Creatinine [Mass/Vol] 0.59 mg/dL Normal 0.50-0.90 [facility] Comment on above: Performed By: #### P TT #### [facility] [address] [place] [address] GFR/1.73 sq M predicted among blacks MDRD (S/P/Bld) [Vol rate/Area] mL/min/{1.73_m2} Normal >60 [facility] Comment on above: Result Comment: >60 mL/min/1.73m2 EGFR, calc. for ages 18 and older using the MDRD formula (not corrected for weight), is valid for stable renal function. Performed By: #### P TT #### [facility] [address] [place] [address] GFR/1.73 sq M.predicted MDRD (S/P/Bld) [Vol rate/Area] mL/min/{1.73_m2} Normal >60 [facility] Comment on above: Result Comment: >60 mL/min/1.73m2 EGFR, calc. for ages 18 and older using the MDRD formula (not corrected for weight), is valid for stable renal function. Performed By: #### P TT #### [facility] [address] [place] [address] Globulin (S) [Mass/Vol] 3.2 g/dL Normal 2.3-3.5 [facility] [place] [place] Comment on above: Performed By: #### P TT #### [facility] [address] [place] [address] Glucose [Mass/Vol] 123 mg/dL Critically high 70-99 [facility] [place] [place] Comment on above: Performed By: #### P TT #### [facility] [address] [place] [address] Potassium reflex Mg 3.8 mEq/L Normal 3.4-4.9 [facility] Comment on above: Performed By: #### P TT #### [facility] [address] [place] [address] Protein [Mass/Vol] 6.5 g/dL Normal 6.3-8.0 [facility] Comment on above: Performed By: #### P TT #### [facility] [address] [place] [address] Sodium [Moles/Vol] 136 mmol/L Normal 135-144 [facility] Comment on above: Performed By: #### P TT #### [facility] [address] [place] [address] Urea nitrogen [Mass/Vol] 6 mg/dL Low 8-23 [facility] Comment on above: Performed By: #### P TT #### [facility] [address] [place] [address] Culture, Blood 2on 9 Culture, Blood 2 ORDERED BY: ADDY COKER SOURCE: Blood COLLECTED: 11/15/18 16:37 ANTIBIOTICS AT DI.: RECEIVED : 11/15/18 16:42 Culture, Blood 2 FINAL 11/20/18 18:15 No growth after 5 days of incubation. Normal [facility] Comment on above: Performed By: #### C MP #### [facility] [address] [place] [address] Culture, Urineon 11-15-2018 Culture, Urine ORDERED BY: ADDY COKER SOURCE: Urine Clean Catch COLLECTED: 11/15/18 19:05 ANTIBIOTICS AT DI.: RECEIVED : 11/15/18 19:05 Culture, Urine FINAL 11/17/18 07:28 No growth 24 hours Normal [facility] Comment on above: Performed By: #### C MP #### [facility] [address] [place] [address] URINE RT REFLEX TO CULTUREon 11-15-2018 Bilirubin Urine Negative Negative [place] Blood, Urine TRACE Abnormal Negative [place] Clarity, UA Clear Clear [place] Color, UA Yellow Straw/Yello w [place] Glucose, Ur Negative Negative mg/dL [place] Interpretation and review of laboratory results Abnormal [place] Ketones Ql (U) Negative Negative mg/dL [place] Leukocyte esterase Test strip Ql (U) Negative Negative [place] Nitrite, Urine Negative Negative [place] pH, UA 7.0 [place] Protein (U) [Mass/Vol] 30 mg/dL Abnormal Negative Me [place], [place] Specific [place], UA 1.014 [place], [place] Urine Reflex to Culture YES [place] Urobilinogen, Urine 0.2 <2.0 E.U./dL [place] CAROTID ARTERY BILATERALo n 11-15-2018 [...] Mohsen Childers MD 11/16/18 Final result Normal [facility] Urinalysis, reflex to cultur kendall 11-15-2018 Bilirubin Ql (U) Negative Normal Negative [facility] Comment on above: Performed By: #### P TT #### [facility] [address] [place] [address] Clarity (U) Clear Normal Clear [facility] Comment on above: Performed By: #### P TT #### [facility] [address] [place] [address] Color (U) Yellow Normal Straw/Mckenzie [facility] Comment on above: Performed By: #### P TT #### [facility] [address] [place] [address] Glucose Ql (U) Negative Normal Negative [facility] Comment on above: Performed By: #### P TT #### [facility] [address] [place] [address] Hemoglobin Ql (U) TRACE Abnormal Negative [facility] Comment on above: Performed By: #### P TT #### [facility] [address] [place] [address] Ketones Ql (U) Negative Normal Negative [facility] Comment on above: Performed By: #### P TT #### [facility] [address] [place] [address] Leukocyte esterase Test strip Ql (U) Negative Normal Negative [facility] Comment on above: Performed By: #### P TT #### [facility] [address] [place] [address] Nitrite Ql (U) Negative Normal Negative [facility] Comment on above: Performed By: #### P TT #### [facility] [address] [place] [address] pH (U) 7.0 [pH] Normal 5.0-9.0 [facility] Comment on above: Performed By: #### P TT #### [facility] [address] [place] [address] Protein Ql (U) 30 mg/dL Abnormal Negative [facility] Comment on above: Performed By: #### P TT #### [facility] [address] [place] [address] Specific gravity (U) [Rel density] 1.014 Normal 1.005-1.03 [facility] Comment on above: Performed By: #### P TT #### [facility] [address] [place] [address] Urine Reflexed to Culture YES Normal [facility] Comment on above: Performed By: #### P TT #### [facility] [address] [place] [address] Urobilinogen Qn (U) 0.2 {Juan'U}/dL Normal < 2.0 [facility] Comment on above: Performed By: #### P TT #### [facility] [address] [place] [address] XR CHEST PORTABLEon 11-16-19 19 XR CHEST [...] Pearl Varghese MD 11/16/18 Final result Normal [facility] Basic Metabolic Panel Reflex Mgon 11-14-2018 Anion gap [Moles/Vol] 10 mmol/L Normal 9-15 [facility] Comment on above: Performed By: #### P T #### [facility] [address] [place] [address] Calcium [Mass/Vol] 8.4 mg/dL Low 8.5-9.9 [facility] Comment on above: Performed By: #### P T #### [facility] [address] [place] [address] Chloride [Moles/Vol] 100 mmol/L Normal 95-107 [facility] Comment on above: Performed By: #### P T #### [facility] [address] [place] [address] CO2 [Moles/Vol] 25 mmol/L Normal 20-31 [facility] Comment on above: Performed By: #### P T #### [facility] [address] [place] [address] Creatinine [Mass/Vol] 0.66 mg/dL Normal 0.50-0.90 [facility] Comment on above: Performed By: #### P T #### [facility] [address] [place] [address] GFR/1.73 sq M predicted among blacks MDRD (S/P/Bld) [Vol rate/Area] mL/min/{1.73_m2} Normal >60 [facility] Comment on above: Result Comment: >60 mL/min/1.73m2 EGFR, calc. for ages 18 and older using the MDRD formula (not corrected for weight), is valid for stable renal function. Performed By: #### P T #### [facility] [address] [place] [address] GFR/1.73 sq M.predicted MDRD (S/P/Bld) [Vol rate/Area] mL/min/{1.73_m2} Normal >60 [facility] Comment on above: Result Comment: >60 mL/min/1.73m2 EGFR, calc. for ages 18 and older using the MDRD formula (not corrected for weight), is valid for stable renal function. Performed By: #### P T #### [facility] [address] [place] [address] Glucose [Mass/Vol] 144 mg/dL Critically high 70-99 [facility] Comment on above: Performed By: #### P T #### [facility] [address] [place] [address] Potassium reflex Mg 4.1 mEq/L Normal 3.4-4.9 [facility] Comment on above: Performed By: #### P T #### [facility] [address] [place] [address] Sodium [Moles/Vol] 135 mmol/L Normal 135-144 [facility] Comment on above: Performed By: #### P T #### [facility] [address] [place] [address] Urea nitrogen [Mass/Vol] 6 mg/dL Low 8-23 [facility] Comment on above: Performed By: #### P T #### [facility] [address] [place] [address] CBC With Platelet and Differ entialon 11-14-2018 Basophils (Bld) [#/Vol] 0.1 10*3/uL Normal 0.0-0.2 [facility] Comment on above: Performed By: #### P T #### [facility] [address] [place] [address] Basophils/100 WBC (Bld) 0.5 % Normal [facility] [place] Comment on above: Performed By: #### P T #### [facility] [address] [place] [address] Eosinophils (Bld) [#/Vol] 0.1 10*3/uL Normal 0.0-0.7 [facility] Comment on above: Performed By: #### P T #### [facility] [address] [place] [address] Eosinophils/100 WBC (Bld) 0.8 % Normal [facility] Comment on above: Performed By: #### P T #### [facility] [address] [place] [address] Erythrocyte distribution width (RBC) [Ratio] 14.1 % Normal 11.5-14.5 [facility] Comment on above: Performed By: #### P T #### [facility] [address] [place] [address] Hematocrit (Bld) [Volume fraction] 35.4 % Low 37.0-47.0 [facility] Comment on above: Performed By: #### P T #### [facility] [address] [place] [address] Hemoglobin (Bld) [Mass/Vol] 11.7 g/dL Low 12.0-16.0 [facility] Comment on above: Performed By: #### P T #### [facility] [address] [place] [address] Lymphocytes (Bld) [#/Vol] 2.7 10*3/uL Normal 1.0-4.8 [facility] Comment on above: Performed By: #### P T #### [facility] [address] [place] [address] Lymphocytes/100 WBC (Bld) 15.7 % Normal [facility] Comment on above: Performed By: #### P T #### [facility] [address] [place] [address] MCH (RBC) [Entitic mass] 29.7 pg Normal 27.0-31.3 [facility] Comment on above: Performed By: #### P T #### [facility] [address] [place] [address] MCHC (RBC) [Mass/Vol] 33.1 % Normal 33.0-37.0 [facility] Comment on above: Performed By: #### P T #### [facility] [address] [place] [address] MCV (RBC) [Entitic vol] 89.6 fL Normal 82.0-100.0 [facility] Comment on above: Performed By: #### P T #### [facility] [address] [place] [address] Monocytes (Bld) [#/Vol] 1.4 10*3/uL Critically high 0.2-0. 8 [facility] Comment on above: Performed By: #### P T #### [facility] [address] [place] [address] Monocytes/100 WBC (Bld) 7.9 % Normal [facility] Comment on above: Performed By: #### P T #### [facility] [address] [place] [address] Neutrophils (Bld) [#/Vol] 12.8 10*3/uL Critically high 1.4-6.5 [facility] Comment on above: Performed By: #### P T #### [facility] [address] [place] [address] Neutrophils/100 WBC (Bld) 75.1 % Normal [facility] Comment on above: Performed By: #### P T #### [facility] [address] [place] [address] Platelets (Bld) [#/Vol] 345 10*3/uL Normal 130-400 [facility] Comment on above: Performed By: #### P T #### [facility] [address] [place] [address] RBC (Bld) [#/Vol] 3.95 10*6/uL Low 4.20-5.40 [facility] Comment on above: Performed By: #### P T #### [facility] [address] [place] [address] WBC (Bld) [#/Vol] 17.0 10*3/uL Critically high 4.8-10.8 [facility] Comment on above: Performed By: #### P T #### [facility] [address] [place] [address] POCT Glucoseon 11-14-2018 Glucose [Mass/Vol] 116 mg/dL Critically high 60-115 [facility] [place] [place] Comment on above: Performed By: #### P T #### [facility] [address] [place] [address] POC Performed on ACCU-CHEK Normal [facility] Comment on above: Performed By: #### P T #### [facility] [address] [place] [address] XR LUMBAR SPINE (2-3 VIEWS)o n 11-14-2018 [...] Mohsen Childers MD 11/14/18 Final result Normal [facility] Basic Metabolic Panel Reflex Mgon 11-13-2018 Anion gap [Moles/Vol] 13 mmol/L Normal 9-15 [facility] Comment on above: Performed By: #### P T #### [facility] [address] [place] [address] Calcium [Mass/Vol] 9.0 mg/dL Normal 8.5-9.9 [facility] Comment on above: Performed By: #### P T #### [facility] [address] [place] [address] Chloride [Moles/Vol] 101 mmol/L Normal 95-107 [facility] Comment on above: Performed By: #### P T #### [facility] [address] [place] [address] CO2 [Moles/Vol] 24 mmol/L Normal 20-31 [facility] Comment on above: Performed By: #### P T #### [facility] [address] [place] [address] Creatinine [Mass/Vol] 0.62 mg/dL Normal 0.50-0.90 [facility] Comment on above: Performed By: #### P T #### [facility] [address] [place] [address] GFR/1.73 sq M predicted among blacks MDRD (S/P/Bld) [Vol rate/Area] mL/min/{1.73_m2} Normal >60 [facility] Comment on above: Result Comment: >60 mL/min/1.73m2 EGFR, calc. for ages 18 and older using the MDRD formula (not corrected for weight), is valid for stable renal function. Performed By: #### P T #### [facility] [address] [place] [address] GFR/1.73 sq M.predicted MDRD (S/P/Bld) [Vol rate/Area] mL/min/{1.73_m2} Normal >60 [facility] Comment on above: Result Comment: >60 mL/min/1.73m2 EGFR, calc. for ages 18 and older using the MDRD formula (not corrected for weight), is valid for stable renal function. Performed By: #### P T #### [facility] [address] [place] [address] Glucose [Mass/Vol] 136 mg/dL Critically high 70-99 [facility] Comment on above: Performed By: #### P T #### [facility] [address] [place] [address] Potassium reflex Mg 3.6 mEq/L Normal 3.4-4.9 [facility] Comment on above: Performed By: #### P T #### [facility] [address] [place] [address] Sodium [Moles/Vol] 138 mmol/L Normal 135-144 [facility] Comment on above: Performed By: #### P T #### [facility] [address] [place] [address] Urea nitrogen [Mass/Vol] 7 mg/dL Low 8-23 [facility] Comment on above: Performed By: #### P T #### [facility] [address] [place] [address] CBC With Platelet No Differe ntialon 11-13-2018 Erythrocyte distribution width (RBC) [Ratio] 14.2 % Normal 11.5-14.5 [facility] Comment on above: Performed By: #### P T #### [facility] [address] [place] [address] Hematocrit (Bld) [Volume fraction] 40.3 % Normal 37.0-47.0 [facility] Comment on above: Performed By: #### P T #### [facility] [address] [place] [address] Hemoglobin (Bld) [Mass/Vol] 13.1 g/dL Normal 12.0-16.0 [facility] Comment on above: Performed By: #### P T #### [facility] [address] [place] [address] MCH (RBC) [Entitic mass] 29.1 pg Normal 27.0-31.3 [facility] Comment on above: Performed By: #### P T #### [facility] [address] [place] [address] MCHC (RBC) [Mass/Vol] 32.4 % Low 33.0-37.0 [facility] Comment on above: Performed By: #### P T #### [facility] [address] [place] [address] MCV (RBC) [Entitic vol] 89.9 fL Normal 82.0-100.0 [facility] Comment on above: Performed By: #### P T #### [facility] [address] [place] [address] Platelets (Bld) [#/Vol] 394 10*3/uL Normal 130-400 [facility] Comment on above: Performed By: #### P T #### [facility] [address] [place] [address] RBC (Bld) [#/Vol] 4.48 10*6/uL Normal 4.20-5.40 [facility] Comment on above: Performed By: #### P T #### [facility] [address] [place] [address] WBC (Bld) [#/Vol] 11.8 10*3/uL Critically high 4.8-10.8 [facility] Comment on above: Performed By: #### P T #### [facility] [address] [place] [id number] Culture, MRSA Screenon 11-13 Culture, MRSA Screen ORDERED BY: BRENNAN HERRON SOURCE: Nares COLLECTED: 11/13/18 09:29 ANTIBIOTICS AT DI.: RECEIVED : 11/13/18 09:29 Culture, MRSA Screen FINAL 11/14/18 08:02 No MRSA isolated Normal [facility] Comment on above: Performed By: #### P T #### [facility] [address] [place] [id number] FLUORO FOR SURGICAL PROCEDUR ESon 11-13-2018 FLUORO [...] Mohsen Childers MD 11/13/18 Final result Normal [facility] Surgical Specimenon 11-14-19 19 Surgical Specimen [facility] [address] [place], [place] [address], [place] [id number] FINAL SURGICAL PATHOLOGY REPORT Patient Name: HIRAM MADRID Accession No: [id number] Age Sex: 1935 Location: [facility] [id number] Account No: [id number] Collected: 11/13/2018 Med Rec No: [id number] Received: 11/14/2018 Attend Phys: LENNY CORRAL Completed: [...] two cassettes after brief decalcification. UVALDO/NIKKY CPT: 46149 X1 27134 X1 STANLEY GRAFF M.D. 11/15/2018 Electronically signed out by Page 1 of 1 [facility] Comment on above: Performed By: #### P TT #### [facility] [address] [place] [address] Type and Screen Capture 3 sc rn cellon 11-13-2018 Type and Screen Capture 3 scrn cell PATIENT: MERCY GANDHI LOC: ERICK,ORKAMRONOL,NON BILL# : [id number] : 1935 SEX: F ORDERED BY: GOPAL AMIN ORDERED : 11/13/2018 08:10 COLLECTED: 11/13/2018 09:24 ORDER : [id number] RECEIVED : 11/13/2018 09:24 TEST NAME RESULT UNITS RANGES ABN FL ST ABORH Capture A POS F Antibody 3 Cell Scrn Captu NEG F Normal [facility] Comment on above: Performed By: #### T S3C #### [facility] [address] [place] [address] XR SPINE ENTIRE (2-3 VIEWS)o n 11-13-2018 [...] Mohsen Childers MD 11/13/18 Final result Normal [facility] MRI LUMBAR SPINE W WO CONTRA STon [...] UNDERLYING PATHOLOGY OR RECENT INJURY. [facility]- [place], [place] Joseph, Chpo Incoming Radiant Results From [facility] A - 11/05/2018 3:07 PM EDT EXAMINATION: MRI [...] SIGNS OF UNDERLYING PATHOLOGY OR RECENT INJURY. [facility], [place] MRI LUMBAR SPINE W WO CONTRAST EXAMINATION: [...] Pearl Varghese MD 11/05/18 Final result Normal [facility] Otheron 11-05-2018 Joseph, Chpo Incoming Radiant Results From [facility]/Design A - 11/05/2018 1:21 PM EDT EXAMINATION: XR [...] AND POSTOPERATIVE FINDINGS, WITHOUT ACUTE SUPERIMPOSED ABNORMALITY. [place] EXAMINATION: XR LUMB AR SPINE (MIN [...] AND POSTOPERATIVE FINDINGS, WITHOUT ACUTE SUPERIMPOSED ABNORMALITY. [place] XR CHEST (2 VW)on 11-05-2018 XR [...] Pearl Varghese MD 11/05/18 Final result Normal [facility] XR LUMBAR SPINE (MIN 4 VIEWS )on [...] Pearl Varghese MD 11/05/18 Final result Normal [facility] APTTon 11-04-2018 aPTT Coag (Bld) [Time] 27.9 s [facility]- [place], [place] Comment on above: Effective 09/06/2018: Please note methodology and/or reference ranges have changed. aPTT - Heparin Therapeutic Range: 74.0 - 106 seconds C-Reactive Proteinon 11-04- 019 CRP [Mass/Vol] 1.3 mg/L Normal 0.0-5.0 [facility] Comment on above: Performed By: #### C RP #### [facility] [address] [place] [address] CRP [Mass/Vol] 1.3 mg/L 0 - 5 mg/L [place] CBC Auto Differentialon 10-21 Basophils (Bld) [#/Vol] 0.1 10*3/uL 0 - 0.2 K/uL [place] Basophils/100 WBC (Bld) 1.1 % [place] Eosinophils (Bld) [#/Vol] 0.2 10*3/uL 0 - 0.7 K/uL [place] Eosinophils/100 WBC (Bld) 1.3 % [place] Erythrocyte distribution width (RBC) [Ratio] 13.9 % 11.5 - 14.5 % [place] Hematocrit (Bld) [Volume fraction] 41.3 % 37 - 47 % [place] Hemoglobin (Bld) [Mass/Vol] 14.3 g/dL 12 - 16 g/dL [place] Interpretation and review of laboratory results Abnormal [place] Lymphocytes (Bld) [#/Vol] 3.5 10*3/uL 1 - 4.8 K/uL [place] Lymphocytes/100 WBC (Bld) 28.2 % [place] MCH (RBC) [Entitic mass] 30.5 pg 27 - 31.3 pg [place] MCHC (RBC) [Mass/Vol] 34.6 % 33 - 37 % [place] MCV (RBC) [Entitic vol] 88.0 fL 82 - 100 fL [place] Monocytes (Bld) [#/Vol] 0.8 10*3/uL 0.2 - 0.8 K/uL [place] Monocytes/100 WBC (Bld) 6.8 % [place] Neutrophils Absolute 7.7 K/uL High 1.4 - 6 .5 K/uL [place] Neutrophils/100 WBC (Bld) 62.6 % [place] Platelets (Bld) [#/Vol] 435 10*3/uL High 130 - 400 K/uL [place] RBC (Bld) [#/Vol] 4.69 10*6/uL [place] WBC (Bld) [#/Vol] 12.4 10*3/uL High 4.8 - 10.8 K/uL [place] CBC With Platelet and Differ entialon 11-04-2018 Basophils (Bld) [#/Vol] 0.1 10*3/uL Normal 0.0-0.2 [facility] Comment on above: Performed By: #### C BCWD #### [facility] [address] [place] [address] Basophils/100 WBC (Bld) 1.1 % Normal [facility] [place] Comment on above: Performed By: #### C BCWD #### [facility] [address] [place] [address] Eosinophils (Bld) [#/Vol] 0.2 10*3/uL Normal 0.0-0.7 [facility] Comment on above: Performed By: #### C BCWD #### [facility] [address] [place] [address] Eosinophils/100 WBC (Bld) 1.3 % Normal [facility] Comment on above: Performed By: #### C BCWD #### [facility] [address] [place] [address] Erythrocyte distribution width (RBC) [Ratio] 13.9 % Normal 11.5-14.5 [facility] Comment on above: Performed By: #### C BCWD #### [facility] [address] [place] [address] Hematocrit (Bld) [Volume fraction] 41.3 % Normal 37.0-47.0 [facility] Comment on above: Performed By: #### C BCWD #### [facility] [address] [place] [address] Hemoglobin (Bld) [Mass/Vol] 14.3 g/dL Normal 12.0-16.0 [facility] Comment on above: Performed By: #### C BCWD #### [facility] [address] [place] [address] Lymphocytes (Bld) [#/Vol] 3.5 10*3/uL Normal 1.0-4.8 [facility] Comment on above: Performed By: #### C BCWD #### [facility] [address] [place] [address] Lymphocytes/100 WBC (Bld) 28.2 % Normal [facility] Comment on above: Performed By: #### C BCWD #### [facility] [address] [place] [address] MCH (RBC) [Entitic mass] 30.5 pg Normal 27.0-31.3 [facility] Comment on above: Performed By: #### C BCWD #### [facility] [address] [place] [address] MCHC (RBC) [Mass/Vol] 34.6 % Normal 33.0-37.0 [facility] Comment on above: Performed By: #### C BCWD #### [facility] [address] [place] [address] MCV (RBC) [Entitic vol] 88.0 fL Normal 82.0-100.0 [facility] [place] Comment on above: Performed By: #### C BCWD #### [facility] [address] [place] [address] Monocytes (Bld) [#/Vol] 0.8 10*3/uL Normal 0.2-0.8 [facility] Comment on above: Performed By: #### C BCWD #### [facility] [address] [place] [address] Monocytes/100 WBC (Bld) 6.8 % Normal [facility] Comment on above: Performed By: #### C BCWD #### [facility] [address] [place] [address] Neutrophils (Bld) [#/Vol] 7.7 10*3/uL Critically high 1.4-6.5 [facility] Comment on above: Performed By: #### C BCWD #### [facility] [address] [place] [address] Neutrophils/100 WBC (Bld) 62.6 % Normal [facility] Comment on above: Performed By: #### C BCWD #### [facility] [address] [place] [address] Platelets (Bld) [#/Vol] 435 10*3/uL Critically high 130-40 0 [facility] Comment on above: Performed By: #### C BCWD #### [facility] [address] [place] [address] RBC (Bld) [#/Vol] 4.69 10*6/uL Normal 4.20-5.40 [facility] Comment on above: Performed By: #### C BCWD #### [facility] [address] [place] [address] WBC (Bld) [#/Vol] 12.4 10*3/uL Critically high 4.8-10.8 [facility] Comment on above: Performed By: #### C BCWD #### [facility] [address] [place] [address] Comprehensive Metabolic Pane bebeto 11-04-2018 Anion gap [Moles/Vol] 14 mmol/L Normal 9-15 [facility] Comment on above: Order Comment: CALL Graf LCED tel. [phone], Potassium results called to and read back by onofre Millan RN, 11/04/2018 16:24, by WEBAM Performed By: #### C MP #### [facility] [address] [place] [address] Bilirubin [Mass/Vol] 0.4 mg/dL Normal 0.2-0.7 [facility] Comment on above: Order Comment: CALL Graf LCED tel. [phone], Potassium results called to and read back by onofre Millan RN, 11/04/2018 16:24, by WEBAM Performed By: #### C MP #### [facility] [address] [place] [address] GFR/1.73 sq M predicted among blacks MDRD (S/P/Bld) [Vol rate/Area] mL/min/{1.73_m2} Normal >60 [facility] Comment on above: Order Comment: CALL Graf LCED tel. [phone], Potassium results called to and read back by onofre Millan RN, 11/04/2018 16:24, by WEBAM Result Comment: >60 mL/min/1.73m2 EGFR, calc. for ages 18 and older using the MDRD formula (not corrected for weight), is valid for stable renal function. Performed By: #### C MP #### [facility] [address] [place] [address] GFR/1.73 sq M.predicted MDRD (S/P/Bld) [Vol rate/Area] mL/min/{1.73_m2} Normal >60 [facility] Comment on above: Order Comment: CALL Graf LCED tel. [phone], Potassium results called to and read back by onofre Millan RN, 11/04/2018 16:24, by WEBAM Result Comment: >60 mL/min/1.73m2 EGFR, calc. for ages 18 and older using the MDRD formula (not corrected for weight), is valid for stable renal function. Performed By: #### C MP #### [facility] [address] [place] [address] Albumin [Mass/Vol] 4.5 g/dL Normal 3.5-4.6 [facility] Comment on above: Order Comment: CALL Graf LCED tel. [phone], Potassium results called to and read back by onofre Millan RN, 11/04/2018 16:24, by WEBAM Performed By: #### C MP #### [facility] [address] [place] [address] ALP [Catalytic activity/Vol] 76 U/L Normal 40-130 [facility] Comment on above: Order Comment: CALL Graf LCED tel. [phone], Potassium results called to and read back by onofre Millan RN, 11/04/2018 16:24, by WEBAM Performed By: #### C MP #### [facility] [address] [facility] [place] [address] ALT [Catalytic activity/Vol] 15 U/L Normal 0-33 [facility] Comment on above: Order Comment: CALL Graf LCED tel. [phone], Potassium results called to and read back by onofre Millan RN, 11/04/2018 16:24, by WEBAM Performed By: #### C MP #### [facility] [address] [facility] [address] AST [Catalytic activity/Vol] 20 U/L Normal 0-35 [facility] Comment on above: Order Comment: CALL Graf LCED tel. [phone], Potassium results called to and read back by onofre Millan RN, 11/04/2018 16:24, by WEBAM Performed By: #### C MP #### [facility] [address] [facility] [place] [address] Calcium [Mass/Vol] 9.9 mg/dL Normal 8.5-9.9 [facility] Comment on above: Order Comment: CALL Graf LCED tel. [phone], Potassium results called to and read back by onofre Millan RN, 11/04/2018 16:24, by WEBAM Performed By: #### C MP #### [facility] [address] [facility] [address] Chloride [Moles/Vol] 96 mmol/L Normal 95-107 [facility] Comment on above: Order Comment: CALL Graf LCED tel. [phone], Potassium results called to and read back by onofre Millan RN, 11/04/2018 16:24, by WEBAM Performed By: #### C MP #### [facility] [address] [facility] [address] CO2 [Moles/Vol] 24 mmol/L Normal 20-31 [place], [place] Comment on above: Order Comment: CALL Graf LCED tel. [phone], Potassium results called to and read back by onofre Millan RN, 11/04/2018 16:24, by WEBAM Performed By: #### C MP #### [facility] [address] [place] [address] Creatinine [Mass/Vol] 0.67 mg/dL Normal 0.50-0.90 [place], [place] Comment on above: Order Comment: CALL Graf LCED tel. [phone], Potassium results called to and read back by onofre Millan RN, 11/04/2018 16:24, by WEBAM Performed By: #### C MP #### [facility] [address] [facility] [place] [address] Globulin (S) [Mass/Vol] 2.8 g/dL Normal 2.3-3.5 [place], [place] Comment on above: Order Comment: CALL Graf LCED tel. [phone], Potassium results called to and read back by onofre Millan RN, 11/04/2018 16:24, by WEBAM Performed By: #### C MP #### [facility] [address] [place] [address] Glucose [Mass/Vol] 109 mg/dL Critically high 70-99 [place], [place] Comment on above: Order Comment: CALL Graf LCED tel. [phone], Potassium results called to and read back by onofre Millan RN, 11/04/2018 16:24, by WEBAM Performed By: #### C MP #### [facility] [address] [place] [address] Potassium [Moles/Vol] 3.0 mmol/L Critically low 3.4-4.9 [place] Comment on above: Order Comment: CALL Graf LCED tel. [phone], Potassium results called to and read back by onofre Millan RN, 11/04/2018 16:24, by WEBAM Performed By: #### C MP #### [facility] [address] [place] [address] Protein [Mass/Vol] 7.3 g/dL Normal 6.3-8.0 [place] Comment on above: Order Comment: CALL Graf LCED tel. [phone], Potassium results called to and read back by onofre Millan RN, 11/04/2018 16:24, by WEBAM Performed By: #### C MP #### [facility] [address] [place] [address] Sodium [Moles/Vol] 134 mmol/L Low 135-144 [place] Comment on above: Order Comment: CALL Graf ED tel. [phone], Potassium results called to and read back by onofre Millan RN, 11/04/2018 16:24, by WEBAM Performed By: #### C MP #### [facility] [address] [place] [address] Urea nitrogen [Mass/Vol] 8 mg/dL Normal 8-23 [place] Comment on above: Order Comment: CALL Graf ED tel. [phone], Potassium results called to and read back by onofre Millan RN, 11/04/2018 16:24, by WEBAM Performed By: #### C MP #### [facility] [address] [facility] [address] Anion gap [Moles/Vol] 14 mmol/L [place], [place] Bilirubin Ql (U) 0.4 mg/dL 0.2 - 0.7 mg/dL [place], [place] GFR >60.0 >60 [place], [place] Comment on above: >60 mL/min/1.73m2 EG FR, calc. for ages 18 and older using the MDRD formula (not corrected for weight), is valid for stable renal function. GFR Non- >60.0 >60 [place] Comment on above: >60 mL/min/1.73m2 EG FR, calc. for ages 18 and older using the MDRD formula (not corrected for weight), is valid for stable renal function. Interpretation and review of laboratory results Abnormal [place] Potassium [Moles/Vol] CALL Graf LCED tel . [phone], Potassium results called to and read back by onofre Millan RN, 11/04/2018 16:24, by TAMMY [place] Partial Thromboplastin Timeo n 11-04-2018 aPTT Coag (Bld) [Time] 27.9 s Normal 24.4-36.8 [facility] Comment on above: Result Comment: Effe ctive 09/06/2018: Please note methodology and/or reference ranges have changed. aPTT - Heparin Therapeutic Range: 74.0 - 106 seconds Performed By: #### P TT #### [facility] [address] [facility] [address] Prothrombin Timeon 9 INR Coag (PPP) [Relative time] 0.9 {INR} Normal [facility] Comment on above: Result Comment: Warf camden Therapy INR Therapeutic: 2.0-3.0 With Mechanical Valve: >2.5 Low-intensity Therapeutic Range: 1.5-2.0 Mod-intensity Therapeutic Range: 2.0-3.0 High-intensity Therapeutic Range: 2.5-3.5 HIgh-intensity Therapeutic Range: 3.0-4.0 Common Critical/Alarm Value: 5.0 Common Upper Limit Reported: 10.0 Effective 08/30/2018: Please note methodology and/or reference ranges have changed. Performed By: #### P T #### [facility] [address] [facility] [address] PT Coag (PPP) [Time] 12.1 s Low 12.3-14.9 [facility] Comment on above: Result Comment: Effe ctive 08/30/18 Please note methodology and/or reference ranges have changed. Performed By: #### P T #### [facility] [address] [place] [address] Protime-INRon 11-04-2018 INR Coag (PPP) [Relative time] 0.9 {INR} [place], [place] Comment on above: Warfarin Therapy IN R Therapeutic: 2.0-3.0 With Mechanical Valve: >2.5 Low-intensity Therapeutic Range: 1.5-2.0 Mod-intensity Therapeutic Range: 2.0-3.0 High-intensity Therapeutic Range: 2.5-3.5 HIgh-intensity Therapeutic Range: 3.0-4.0 Common Critical/Alarm Value: 5.0 Common Upper Limit Reported: 10.0 Effective 08/30/2018: Please note methodology and/or reference ranges have changed. Interpretation and review of laboratory results Abnormal [place] PT Coag (PPP) [Time] 12.1 s Low [place], [place] Comment on above: Effective 08/30/18 Please note methodology and/or reference ranges have changed. Sedimentation Rateon 019 Sedimentation Rate 12 mm Normal 0-30 [facility] Comment on above: Performed By: #### E SR #### [facility] [address] [place] [address] Sed Rate 12 mm 0 - 30 mm [place], [place] Vital Signs Date Time Vital Sign Value Performing Clinician Ivonne ledesma 12-22-2022 11:40-0400 Blood Pressure Location MIKAYLA WEISS [facility] 12-22-2022 11:40-0400 Diastolic blood pressure 84 mm[Hg] MIKAYLA WEISS [facility] 12-22-2022 11:40-0400 Systolic blood pressure 124 mm[Hg] MIKAYLA WEISS [facility] 08-06-2022 00:10-0400 Body temperature 97.3 [degF] MD Addy Daniels Work Phone: [facility] 08-06-2022 00:10-0400 Diastolic blood pressure 74 mm[Hg] MD Addy Daniels Work Phone: [facility] 08-06-2022 00:10-0400 Heart rate 80 /min MD Addy Daniels Work Phone: [facility] 08-06-2022 00:10-0400 Respiratory rate 18 /min MD Addy Daniels Work Phone: [facility] 08-06-2022 00:10-0400 SaO2% (BldA) [Mass fraction] 96 % MD Addy Daniels Work Phone: [facility] 08-06-2022 00:10-0400 Systolic blood pressure 177 mm[Hg] MD Addy Daniels Work Phone: [facility] 08-05-2022 19:51-0400 Body height 154.94 cm MD Addy Daniels Work Phone: [facility] 08-05-2022 19:51-0400 Body weight 67.6 kg MD Addy Daniels Work Phone: [facility] 11-20-2018 07:02-0400 Body Temperature 97 [degF] [facility] [place] 11-20-2018 07:02-0400 BP Diastolic 61 mm[Hg] [facility] [place] 11-20-2018 07:02-0400 BP Systolic 153 mm[Hg] [facility] [place] 11-20-2018 07:02-0400 Pulse (Heart Rate) 75 /min [facility] [place] 11-20-2018 07:02-0400 Pulse Oximetry 97 % [facility] [place] 11-20-2018 07:02-0400 Respiratory Rate 17 /min [facility] [place] 11-17-2018 05:54-0400 BMI (Body Mass Index) 27.62 kg/m2 [facility] [place] 11-17-2018 05:54-0400 Body weight 66.3 kg Mary Vega [facility] 11-15-2018 15:58-0400 Height 154.9 cm Mary Vega [facility] 11-05-2018 07:30-0400 BP Diastolic 57 mm[Hg] [facility] [place] 11-05-2018 07:30-0400 BP Systolic 135 mm[Hg] [facility] [place] 11-05-2018 07:30-0400 Pulse (Heart Rate) 70 /min [facility] 11-05-2018 07:30-0400 Pulse Oximetry 97 % [facility] [place] 11-04-2018 20:06-0400 Body Temperature 98.4 [degF] [facility] 11-04-2018 20:06-0400 Respiratory Rate 16 /min [facility] 11-04-2018 14:56-0400 BMI (Body Mass Index) 27.4 kg/m2 [facility] 11-04-2018 14:56-0400 Body weight 65.77 kg [facility] [place] 11-04-2018 14:56-0400 Height 154.9 cm [facility] [place] Encounters Encounter Date Encounter Type Care Provider Facility Start: 06-29-2023 ambulatory MIKAYLA Mora ty:ERIN Hoang Start: 01-11-2023 End: 01-11-2023 ambulatory [facility] Start: 12-22-2022 End: 12-23-2022 ambulatory MIKAYLA WEISS Facility:ERIN Hoang Start: 12-22-2022 End: 12-22-2022 Patient encounter procedure MIKAYLA WEISS [facility]ya Start: 10-14-2022 End: 10-14-2022 ambulatory [facility] Start: 09-06-2022 End: 09-07-2022 ambulatory Raymond HARRISON Facility:ERIN Hoang Start: 08-11-2022 End: 08-12-2022 ambulatory Raymond HARRISON Facility:CD:[id number] Start: 08-10-2022 End: 08-11-2022 ambulatory Raymond HARRISON Facility:[facility] Start: 08-09-2022 End: 08-09-2022 ambulatory Addy Daniels Facility:[facility] Start: 08-09-2022 ambulatory MIKAYLA WEISS Facility :[facility] Start: 08-05-2022 End: 08-06-2022 Emergency department patient visit Camacho Saavedray Facility:[facility] Start: 08-05-2022 End: 08-06-2022 Emergency department patient visit MD Addy Daniels Work Phone: [facility] Work Phone: Start: 06-13-2022 End: 06-14-[address] ADDY DANIELS . Facility:[facility] Start: 05-19-[address] ADDY DANIELS . Facili ty:[facility] Start: 04-18-2022 End: 04-19-[address] VALERIE DARDEN Facility:[facility] Start: 04-04-2022 End: 04-04-2022 ambulatory [facility] Start: 01-30-[address] ADDY DANIELS . Facili ty:[facility] Start: 01-04-2022 End: 01-05-[address] ADDY DANIELS . Facility:[facility] Start: 12-26-2021 End: 12-29-2021 Evaluation and management of inpatient DR ADDY DANIELS . Facility:[facility] Start: 12-02-2021 End: 01-04-2022 Pre-admission assessment Alie Santos [facility] Start: 11-30-2021 End: 12-01-[address] JESUS BRUNO Facility:[facility] Start: 11-09-2021 End: 11-10-[address] CALISTA ACEVES Facility:[facility] Start: 08-06-2021 End: 08-07-[address] VALERIE DARDEN Facility:[facility] Start: 07-28-2021 End: 07-29-[address] CALISTA ACEVES Facility:[facility] Start: 06-22-2021 End: 06-22-2021 Patient encounter procedure VALERIE DARDEN [facility] Start: 11-15-2018 End: 11-20-2018 Evaluation and management of inpatient [facility] Start: 11-15-2018 End: 11-20-2018 Evaluation and management of inpatient Mary Vega Work Phone: [facility] Comment on above: Spinal stenosis of l umbosacral region (Primary Dx); Impaired mobility; Vasovagal syncope Start: 11-13-2018 End: 11-15-2018 Evaluation and management of inpatient LENNY CORRAL [facility] Start: 11-13-2018 End: 11-15-2018 Patient encounter procedure LENNY Kang [facility] Start: 11-04-2018 End: 11-05-2018 Patient encounter procedure CALISTA KETAN [facility] Start: 11-04-2018 End: 11-05-2018 Emergency department patient visit Lenny Corral Work Phone: [facility] Comment on above: Lumbar radiculopathy (Primary Dx); Intractable low back pain Start: 04-19-2018 End: 04-20-2018 Patient encounter procedure DEFAULT PHYSICIAN Facility:[facility] Procedures Date Procedure Procedure Detail Performing [...] KETAN Start: 11-18-2018 INCENTIVE SPIROMETRY RT CALISTA KTEAN Start: 11-18-2018 Ecg routine ecg w/le ast [...] VTE PROPHYLAXIS CALISTA ACEVES Start: 11-15-2018 LEAD RECREATION ASSISTANT EVAL AND TREAT CHRIS PRESLEY KETAN Start: [...] scan extracra nial art compl bi study BDA Work Phone: Start: 11-15-2018 Culture bacterial quanttative colony count urine Mary Gary Work Phone: Start: 11-15-2018 Urinalysis microscopic only Mary Gary Work Phone: Start: 11-15-2018 Blood count complete auto&auto difrntl wbc CALISTA ACEVES Start: 11-15-2018 Culture bacterial bl ood aerobic w/id isolates CALISTA ACEVES Start: 11-15-2018 Microscopic examinat ion of blood, culture CALISTA ACEVES Comment on above: Performed By: #### P TT #### [facility] [address] [place] [address] Start: 11-15-2018 Urnls dip stick/tabl et [...] UN Start: 11-15-2018 ACTIVITY TOLERATED M DORA ACEVSE Start: 11-15-2018 INCENTIVE SPIROMETRY RT CALISTA ACEVES [...] CT Abdomen and Pelvi s WO contrast [facility] Start: 08-05-2022 CT of abdomen and pe lvis without contrast CT abdomen pelvis wo con [facility] Start: 11-19-2019 Creatinine monitoring Creatinine mon [place], [place] Start: 11-19-2019 Potassium monitoring Potassium monit [place], [place] Start: 11-05-2019 Creatinine monitoring Creatinine mon [place] Start: 11-05-2019 Potassium monitoring Potassium monit [place] Start: 12-04-2018 End: 12-04-2018 Office Visit 12/04/2018 Office Visit Neurosurgery Lenny Corral MD [address] [facility], [address] [address] [employer] Start: 11-30-2018 End: 11-30-2018 Office Visit 11/30/2018 Office Visit Neurosurgery Lenny Corral MD [address] [facility], [address] [address] [employer] Start: 11-23-2018 End: 11-23-2018 Office Visit 11/23/2018 Office Visit Neurosurgery Lenny Corral MD [address] [facility], [address] [address] [employer] Start: 11-13-2018 Annual Wellness Visi t (AWV) Annual Wellness Visit (AWV) [place] Start: 10-21-2018 Influenza vaccination Flu vaccine (# 1) [place] Start: 2001 DEXA (modify frequen cy per FRAX score) DEXA (modify frequency per FRAX score) [place] Start: 2001 Pneumococcal 65+ yea rs Vaccine (1 of 2 - PCV13) Pneumococcal 65+ years Vaccine (1 of 2 - PCV13) [place] Start: 1986 Shingles Vaccine (1 of 2) Shingles Vaccine (1 of 2) [place] Start: 11-13-1955 DTaP/Tdap/Td vaccine (1 - Tdap) DTaP/Tdap/Td vaccine (1 - Tdap) [place] Start: 1946 Lipid screen Lipid screen [place], [place] Culture Blood #1 Culture Blood # 1 Microbiology STAT 11/15/2018 4:37 PM EDT [place] Culture Blood #2 Culture Blood # 2 Microbiology STAT 11/15/2018 4:37 PM EDT [place] End: 11-05-2018 EKG 12 Lead EKG 12 Lead ECG Routine One Time for 1 Occurrences starting 11/05/2018 until 11/05/2018 [place] Comment on above: One Time for 1 Occur rences starting 11/05/2018 until 11/05/2018 Incentive spirometry Incentive s pirometry Respiratory Care Routine Every 2hr while awake until discontinued starting 11/15/2018 [place] Comment on above: Every 2hr while awak e until discontinued starting 11/15/2018 Initiate Oxygen Ther apy Protocol Initiate Oxygen Therapy Protocol Respiratory Care Routine Daily until discontinued starting 11/15/2018 [place] Comment on above: Daily until disconti nued starting 11/15/2018 Nonrebreather mask oxygen Nonrebreather mask oxygen Respiratory Care Routine As directed - RT (PRN) until discontinued starting 11/05/2018 [place] Comment on above: As directed - RT (DE N) until discontinued starting 11/05/2018 Patient Education Kidney Stones (DC) [facility] Work Phone: Patient referral [facility] Work Phone: End: 11-15-2018 Speech and language therapy regime Speech language pathology evaluation LEAD RECREATION ASSISTANT Routine One Time for 1 Occurrences starting 11/15/2018 until 11/15/2018 [place] [place] Comment on above: One Time for 1 Occur rences starting 11/15/2018 until 11/15/2018 End: 11-04-2018 Urine Reflex to Culture Urine Reflex to Culture Lab STAT One Time for 1 Occurrences starting 11/04/2018 until 11/04/2018 [place] Comment on above: One Time for 1 Occur rences starting 11/04/2018 until 11/04/2018 Immunizations Immunization Date Immunization Notes Care Provider Laxmi romero 12-20-2021 influenza virus vaccine, unspecified formulation MIKAYLA ABDULLAHI [facility] 12-21-2020 influenza virus vaccine, unspecified formulation MIKAYLA ABDULLAHI [facility] 01-09-2019 influenza virus vaccine, unspecified formulation MIKAYLA ABDULLAHI [facility] 11-29-2017 influenza virus vaccine, unspecified formulation MIKAYLA ABDULLAHI [facility] 01-02-2017 influenza virus vaccine, unspecified formulation MIKAYLA ABDULLAHI [facility] 12-06-2016 influenza virus vaccine, unspecified formulation MIKAYLA ABDULLAHI [facility] 12-11-2014 influenza virus vaccine, unspecified formulation MIKAYLA ABDULLAHI [facility] Payers Date Payer Category Payer Self-pay [id number] 2021 Unknown [id number] 2018 Medicare MEDICARE MEDICAR E PART A AND B xxxxxxxxxxx 2018-Present [phone] [place] [address] xxxxxxxxxxx [id number] 2014 Medicare [id number] 2014 Medicare MEDICARE MEDICAR E PART A AND B xxxxxxxxxx 2014-Present [phone] [address] [place] [address] xxxxxxxxxx [id number] [id number] 2014 Unknown [id number] 2014 Unknown 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 [address] xxxxxxxxxxxx 2014-Present [phone] [address] [place] [address] xxxxxxxxxxxx [id number] .[id number] 1959 Medicare [id number] 1959 Self-pay [id number] 1959 Unknown [id number] 1936 Unknown [id number] 2.16.840.1.508532.3.579.2.647 1936 Unknown [id number] 2.16.840.1.264715.3.579.2.182 1936 Unknown [id number] 2.16.840.1.041139.3.579.2.182 1936 Unknown [id number] 2.16.840.1.143488.3.579.2.182 1936 Unknown [id number] 2.16.840.1.816780.3.579.2.182 1936 Unknown [id number] 2.16.840.1.188489.3.579.2.593 1936 Unknown [id number] 2.16.840.1.306762.3.579.2.593 1936 Unknown [id number] 2.16.840.1.674480.3.579.2.593 1936 Unknown [id number] 2.16.840.1.042225.3.579.2.593 1936 Unknown [id number] 2.16.840.1.552049.3.579.2.593 1936 Unknown [id number] 2.16.840.1.720478.3.579.2.593 1936 Unknown [id number] 2.16.840.1.982647.3.579.2.593 1936 Unknown [id number] 2.16.840.1.294561.3.579.2.593 1936 Unknown [id number] 2.16.840.1.918069.3.579.2.593 1936 Unknown [id number] 2.16.840.1.980779.3.579.2.593 1936 Unknown [id number] 2.16.840.1.713145.3.579.2.727 1936 Unknown [id number] 2.16.840.1.805328.3.579.2.727 1936 Unknown [id number] 2.16.840.1.077259.3.579.2.727 1936 Unknown [id number] 2.16.840.1.504212.3.579.2.727 1936 Unknown [id number] 2.16.840.1.367606.3.579.2.727 1936 Unknown [id number] 2.16.840.1.994898.3.579.2.727 Unknown Unknown [id number] 2.16.840.1.749751.3.579.2.531 Unknown [id number] 2.16.840.1.735409.3.579.2.531 Social History Date Type Detail Facility Start: 11-04-2018 End: 12-22-2022 Tobacco smoking status NHIS Never smoker [facility] Natalya Start: 11-04-2018 End: 11-19-2018 Alcohol intake Not Currently [place] Sex Assigned At Not on file [place] Tobacco smoking status No Smokin g Status Entered [facility] Start: 1935 Sex Assigned At Female F [facility] Tobacco smoking status Never [facility] Medical Equipment Procedure Code Equipment Code Equipment Origin al Text Equipment Identifier Dates Graft Canc Chip 30cc [id number] - [id number] Start: 11-13-2018 Graft Canc Chip [id number] 15cc - [id number] Start: 11-13-2018 Sys Fix Reline 0 x Conn 40 50mm 5.5lp Adj [id number] Start: 11-13-2018 Jose Armando-Graft Infuse Kt Med [id number] Start: 11-13-2018 Impl Spine Cage Kamila Crv [id number] 8deg [id number] Start: 11-13-2018 Impl Spine Cage Kamila Crv [id number] 8deg [id number] Start: 11-13-2018 Screw Polyaxial Reline O 2s 6.0x55mm [id number] Start: 11-13-2018 Screw Lk Reline Opn Tulip 5.5mm [id number] Start: 11-13-2018 Impl Spine Harish Reline-O Lrdtc 5.5x70mm [id number] Start: 11-13-2018 Impl Spine Harish Reline-O 5.5x75mm [id number] Start: 11-13-2018 Functional Status Date Assessment Result Facility 12-22-2022 Functional Status N/A [facility] Clinical Notes 04-04-2022 to 01-11-2023 Note Date & Type Note Facility 01-11-2023 Note Noted 7 beat run of NSVT on 1 week holter monitor, along with SVT, PVCs Recommended to continue coreg 25 mg bid, will place 30 day monitor, and obtain treadmill cardiolite stress test for ischemic evaluation. [facility] 01-11-2023 Note Pt reports that she has had 5 syncopal episodes since this Summer- some while having a BM, and other episodes while just up and walking. [facility] 01-11-2023 Note Will monitor with ro utine echocardiogram annually unless pt has concerning symptoms [facility] 01-11-2023 Note Recommended to gorge nue ASA and pravastatin [facility] 01-11-2023 Note Hypertension is stab le Reviewed B/P log and typically in the mornings her b/p with well controlled 120's/70-80, and in the evenings can be up to 140/80 Continue all meds and will add toprol [facility] 01-11-2023 Note Continue pravastatin [facility] 01-11-2023 Note Will monitor with ro utine echocardiogram annually unless pt has concerning symptoms [facility] 01-11-2023 Note Will monitor with ro utine echocardiogram annually unless pt has concerning symptoms [facility] 01-11-2023 Note Patient here for 3 [...] All other systems reviewed and are negative. [facility] 01-11-2023 Note UTP CARDIOLOGY PROGR ESS [...] called and was evaluated in ED at [facility]. Admits she has had a couple syncopal episodes in the bathroom while having a BM- last one was at [facility]. States she also has had a couple while just up and walking- normal Day to Day activity. Daughter states that pt is usually out for about 1 minute. Of note patient was direct admitted to the [facility] end of August for electrolyte imbalances low sodium, low potassium, and acute anemia. She was evaluated at [facility] in October for ABD pain/ syncope, [...] The patient states she was shopping in [employer] when she felt the need to have [...] a colonoscopy approximately 5 years ago at [facility]. HPI - Altered Mental Status General [...] was someone in the bathroom in the jain and she have to go back and [...] 3 levothyroxine (Syn (more content not included)... [facility] 12-22-2022 Hospital Discharge instructions Patient Education [...] transplant. Follow these instructions at home: Take nrme-wlb-fvgndbf and prescription medicines only as told by [...] provider. Document Revised: 05/26/2020 Document Reviewed: 05/26/2020 SVAS [employer] Patient Education 2022 [employer]. Follow Up Care 09/06/2022 13:10:43 With:ABDULLAHI NOONAN, MIKAYLA Pereira, URL Address: [address] [place] [address] [phone] When: Unknown Comments:6 mos w/ renal fxn (per PCP) [facility] Natalya 10-25-2022 Note Pt message/ call [...] needs to call for appointment Lesly Alaniz BAT CARRIER Division of Cardiology, [facility]- [phone] Pager- [phone] Email- [email or web address] 10-14-2022 Note Stable and non pitting currently [facility] 10-14-2022 Note Currently stable Pt to call for any recurrent syncope or concerns [facility] 10-14-2022 Note Mild on recent echo No concerning symptoms [facility] 10-14-2022 Note Continue ASA and statin [facility] 10-14-2022 Note Hypertension is unco ntrolled 160/75- admits this is where her b/p is at home Increase coreg to 25 mg bid, continue losartan 100 mg, hydrochlorothiazide 25 mg, and amlodipine 10 mg [facility] 10-14-2022 Note Continue pravastatin [facility] 10-14-2022 Note No concerning sympto ms Will continue to monitor with echocardiogram [facility] 10-14-2022 Note No concerning sympto ms Will continue to monitor with echocardiogram [facility] 10-14-2022 Note Patient here c/o LE edema. Says today they aren't as bad, but she states they're hard and sometimes painful. She has not had lab work since [facility] stay in July 2022. She denies chest pain, lightheadedness, and palpitations. Review of Systems Cardiovascular: Positive for dyspnea on exertion and leg swelling. Hematologic/Lymphatic: Bruises/bleeds easily. All other systems reviewed and are negative. [facility] 10-14-2022 Note UTP CARDIOLOGY PROGR ESS [...] note patient was direct admitted to the [facility] end of August for electrolyte imbalances [...] and non pitting currently RTC 3-6 months [facility] 04-04-2022 Note [facility] Note Chief Complaint: Patient [...] p.o. twice dominic (more content not included)... [facility] Evaluation + Plan note No data available for this section [facility] Evaluation + Plan note Future Appointments Appointment Date:06/29/2023 09:30:00 AM Scheduled Provider:MIKAYLA WEISS PA-C Location:[facility] Appointment Type:URO Office Visit [facility] Evaluation note No assessment inform ation available [facility] Work Phone: Hospital Discharge instructions No data available for this section [facility] Hospital Discharge instructions Additional Instructions Take [...] fevers or chills or intractable nausea vomiting. [facility] Work Phone: Progress note No data available for this section [facility] Summary Purpose Family History No Family History Records FoundNo Family History Records FoundNo Family History Records FoundNo Family History Records Found No data available for this section No Family History Records FoundNo Family History Records Found Advance Directives No Advanced Directives Records FoundDocuments on File Type Date Recorded Patient Production Finisher Expl anation Advance Directives and Living Will Power of Entry Manager Latest Code Status on File Code Status Date Activated Date Inactivated Comments Full Code 11/05/2018 6:34 PM Full Code 11/04/2018 5:08 PM 11/05/2018 6:34 PM Documents on File Type Date Recorded Patient Production Finisher Expl anation Advance Directives and Livin g Will Advance Directives and Livin g Will 11/06/2018 1:08 AM AD info sheets Power of Entry Manager Latest Code Status on File Code Status [...] sent through Care Everywhere. * Back Pain (Indonesian) documented in this encounter* Discharge Instr - [...] most local grocery stores, pharmacies, and chain itBit-stores. ? If you have any questions about [...] Contact Information Primary Emergency Contact: Andrea Madrid [facility] Mobile Relation: Spouse Secondary Emergency Contact: Liliya Townsend Mobile Relation: Child Thread Tool Grinder Set Up Operator needed? No Past Surgical History: Past Surgical History: Procedure Laterality Date APPENDECTOMY BACK SURGERY CHOLECYSTECTOMY LUMBAR FUSION N/A 11/13/2018 PLIF L 3-4-5 DECOMPRESSION L3, L4 performed by Lenny Corral MD at [facility] OR [facility] Right Immunization History: There is no immunization [...] Assisted Dressing Independent Toileting Independent Feeding Independent Plate Cutter Independent Med Delivery whole Wound Care Documentation [...] Video (Video Swallowing Test): {Done Not Done Date:[id number]} Treatments at the Time of Hospital Discharge: Respiratory Treatments: Oxygen Therapy: is not on home oxygen therapy. Ventilator: - No ventilator support Rehab Therapies: Physical Therapy and Occupational Therapy Weight Bearing Status/Restrictions: No weight bearing restirctions Other Medical Equipment (for information only, NOT a DME order): walker Other Treatments: Patient's personal belongings (please select all that are sent with patient): {[facility] Belongings:[id number]} RN SIGNATURE: MANAGEMENT/SOCIAL WORK SECTION Inpatient Status Date: Patient was admitted to Inpatient Acute Rehab 11/15/18 Readmission Risk Assessment Score: Readmission Risk Risk of Unplanned Readmission: 12 Discharging to Facility/ Agency Name: Karan Sosa Address: Fax: Dialysis Facility (if applicable) Name: Address: Dialysis Schedule: Phone: Fax: International Logistics Manager/Patient Safety Attendant signature: ICIAN SECTION Prognosis: Good Condition at [...] Date: 11/20/2018 Patient Name: Hiram Madrid Account: [id number] : 1935 (83 y.o.) Room: [place] [address] Diagnosis: Impaired mobility and gait secondary to [...] L4 performed by Lenny Corral MD at [facility] OR [facility] Right Precautions: Restrictions/Precautions: Fall Risk [...] to increasing pain) Transfer Assistance: Independent Active Wafer Fabricator: Yes Mode of Transportation: Car 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 Hearing Exceptions: Hard of hearing/hearing concerns, [...] PM Yarely Gordon 11/20/2018 12:[address] [facility] MUSIC THERAPY Date: 11/20/2018 Patient Name: Hiram Madrid Date of : 1935 (83 y.o.) Gender: female Diagnosis: Impaired mobility and gait secondary to NTSCI secondary to lumbar stenosis, radiculopathy, and spondylosis Referring Practitioner: Dr. Coker RESTRICTIONS/PRECAUTIONS: Restrictions/Precautions: Fall Risk Vision: Impaired Hearing: Exceptions to [facility] Hearing Exceptions: Hard of hearing/hearing concerns, [...] interested in having music therapy again. [] [facility] will attempt to see pt again another day, if time allows. [x] Pt's planned d/c date is before [facility] is scheduled on unit again. [] Pt NOT interested in having music therapy again. [facility] 11/20/2018 * Roselyn Schroeder OTA - 11/20/2018 9:59 AM EDT Occupational Therapy Facility/Department: [facility] Daily Treatment Note NAME: Hiram Madrid [...] 11/20/2018 9:55 AM EDT Occupational Therapy Facility/Department: [facility] Daily Treatment Note NAME: Hiram Madrid [...] device (slide rail) Walk: 6 - Modified Hitchcock Walks at least 150 feet with an ambulatory device, orthosis or prosthesis OR requires extra amount of time OR there is concern for safety Distance Walked: 200' Wheel Chair: 0 - Activity Not Assessed/Does Not Occur Stairs: 6 - Modified Hitchcock Safely goes up and down at least [...] from Dr. Ellis Holguin D.O., PM&R Attending [phone] [facility] * Khanh White LPN - 11/19/2018 6:00 [...] 11/19/2018 2:05 PM EDT Occupational Therapy Facility/Department: [facility] Daily Treatment Note NAME: Hiram Madrid [...] EDT Physical Therapy Rehab Treatment Note Facility/Department: [facility] Room: [place] [address] NAME: Hiram Madrid : 1935 (83 y.o.) [...] EDT Progress Note Patient: Hiram Madrid Unit/Bed: [place] [address] Date of : 1935 Acct: [id number] Admitting Diagnosis: Impaired mobility [Z74.09] Spinal stenosis [...] and tentative discharge home tomorrow. Follows with international editorial producer in [place]. 11/18/18: called by staff auditor regarding tachycardia. Pt was unaware of tachycardia. [...] followed on a regular basis by Dr. Calitsa Aceves MD. S/p back surgery. Experienced a syncopal episode one day post op. States she got up form bed and walked over and sat in a chair. States she felt LH/foggy type of feeling and experience a brief syncopal episode. No seizure like activity No CP or SOB. Noted to have + orthostatics. Denies hx of AK, CHF or arrhythmia. Follows with a international editorial producer from [place] for carotid artery disease and cardiac murmur. [...] to DC home and F/U with regular international editorial producer as outpatient Attending Supervising Physician's Attestation Statement The patient is a 83 y.o. female. I have performed a history and physical examination of the patient. I discussed the case with the physician assistant prosecuting attorney. I reviewed the patient's Past Medical History, [...] EDT Physical Therapy Rehab Treatment Note Facility/Department: [facility] Room: [place] [address]- NAME: Hiram Madrid : 1935 (83 y.o.) [...] EDT Physical Therapy Rehab Treatment Note Facility/Department: [facility]: [facility] [...] Neuromuscular Education Neuromuscular Comments: Pizano Initiated: other PLASTER MACHINE TENDER finished it: pt scored a 42/56. Bed [...] education: 10 Therapeutic ex: 0 Mikayla Lindsey, PLASTER MACHINE TENDER, 11/19/18 at 11:59 AM * Khanh White [...] Unit/Bed: R238/R238-01 Date of : 1935 Acct: [id number] Admitting Diagnosis: Impaired mobility [Z74.09] Spinal stenosis of lumbosacral region [M48.07] Admit Date: 11/15/2018 Hospital Day: 4 Current Medications: Scheduled Meds: cephALEXin 500 mg Oral 3 times per day emamcmbv-xuhdhnojlh-isslikizn Topical BID enoxaparin 30 mg Subcutaneous Daily [...] woman from homewith spouse who presents to [facility] with the above deficits which impact her [...] ms QTc Calculation (Bazett) 463 ms P [place] 58 degrees R [place] -11 degrees T [place] 5 degrees Xr Chest Standard (2 Vw) [...] from Dr. Ellis Holguin D.O., PM&R Attending [address] [place] [address] * Rachael Graf LPN - 11/18/2018 4:39 [...] and no guarding. Musculoskeletal: Back: Urine Culture [[id number]] Collected: 11/15/18 190 Order Status: Completed Specimen: Urine, clean catch Updated: 11/17/18 0728 Urine Culture, Routine No growth 24 hours Narrative: ORDERED BY: ADDY COKER SOURCE: Urine Clean Catch COLLECTED: 11/15/18 19:05 ANTIBIOTICS AT DI.: RECEIVED : 11/15/18 19:05 Culture Blood #2 [[id number]] Collected: 11/15/18 1637 Order Status: Completed Specimen: Blood Updated: 11/16/18 1815 Culture, Blood 2 No Growth to date. Any change in status will be called. Narrative: ORDERED BY: ADDY COKER SOURCE: Blood COLLECTED: 11/15/18 16:37 ANTIBIOTICS AT DI.: RECEIVED : 11/15/18 16:42 Culture Blood #1 [[id number]] Collected: 11/15/18 1637 Order Status: Completed Specimen: [...] Unit/Bed: R238/R238-01 Date of : 1935 Acct: [id number] Admitting Diagnosis: Impaired mobility [Z74.09] Spinal stenosis [...] L4 performed by Lenny Corral MD at [facility] OR [facility] Right History reviewed. No pertinent family history. [...] on phone: None Gets together: None Attends evangelical service: None Active member of club or organization: None Attends meetings of clubs or organizations: None Relationship status: None Intimate partner violence: Fear of current or ex partner: None Emotionally abused: None Physically abused: None Forced sexual activity: None Other Topics Concern None Social History Narrative None Subjective/HPI: called by staff auditor regarding tachycardia. Pt was unaware of tachycardia. [...] woman from homewith spouse who presents to [facility] with the above deficits which impact her [...] up labs. Blanca Holguin D.O., PM&R Attending [phone] [place] [address] [place] * Dana Craig, JANET - 11/17/2018 5:45 PM EDT Monitor room called, said pt had about 18 sec run of svt up to 218; notified cardio. * Faye Summers PTA - 11/17/2018 4:07 PM EDT Physical Therapy Rehab Treatment Note Facility/Department: [facility]: Hiram [...] 11/17/2018 2:51 PM EDT Occupational Therapy Facility/Department: [facility] Daily Treatment Note NAME: Hiram Madrid [...] EDT Physical Therapy Rehab Treatment Note Facility/Department: [facility] Room: R238/R238-01 NAME: Hiram Madrid : [...] EDT Physical Therapy Rehab Treatment Note Facility/Department: [facility]: Hiram [...] 11/17/2018 8:43 AM EDT Occupational Therapy Facility/Department: [facility] Daily Treatment Note NAME: Hiram Madrid [...] at below status. ADL Equipment Provided: Sock aid;Manager Retirement Grooming: Independent UE Bathing: Setup LE Bathing: [...] woman from homewith spouse who presents to [facility] with the above deficits which impact her [...] consult,check dopplers Blanca Holguin D.O., PM&R Attending [phone] [facility] * Jessica Irvin, OTR/L - 11/16/2018 4:14 PM EDT Occupational Therapy Facility/Department: [facility] Daily Treatment Note NAME: Hiram Madrid : 1935 Date of Service: 11/16/2018 Discharge Recommendations: Continue to assess pending progress OT Equipment Recommendations Other: Continue to assess Assessment Performance deficits / Impairments: Decreased functional mobility ;Decreased ADL status;Decreased strength;Decreased balance;Decreased endurance;Decreased high- level IADLs Assessment: Pt. 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 Denies hx of AK, CHF or arrhythmia. Follows with a international editorial producer from [place] for carotid artery disease and cardiac murmur. [...] L4 performed by Lenny Corral MD at [facility] OR [facility] Right Social History Social History [...] on phone: None Gets together: None Attends evangelical service: None Active member of club or [...] mg 100 mg Oral Daily Shyla Vizcaino, MARKET DEVELOPMENT TRAINER - AIR[employer] oxyCODONE-acetaminophen (PERCOCET) 5-325 MG per tablet 1 tablet 1 tablet Oral Q4H PRN Shylapresley Vizcaino, MARKET DEVELOPMENT TRAINER - AIR[employer] REF[employer]LL[employer] potassium chloride (KLOR-CON) packet 20 mEq 20 mEq Oral BID Shyla Renato Vizcaino, MARKET DEVELOPMENT TRAINER - AIRCRAFT REFUELLER pravastatin (PRAVACHOL) tablet 80 mg 80 mg Oral Daily Shyla Renato Vizcaino, MARKET DEVELOPMENT TRAINER - AIRCRAFT REFUELLER polyethylene glycol (GLYCOLAX) packet 17 g 17 [...] EDT Physical Therapy Rehab Treatment Note Facility/Department: [facility] Room: [facility] NAME: Hiram Madrid : 1935 (83 [...] education: 0 Therapeutic ex: 23 Mikayla Lindsey PLASTER MACHINE TENDER, 11/16/18 at 3:57 PM * Rhiannon Blank [...] from home with spouse who presents to [facility] with the above deficits which impact her [...] to increasing pain) Transfer Assistance: Independent Active Wafer Fabricator: Yes Mode of Transportation: Car Type of [...] OTR/L Jessica Irvin OTR/Lloyd * Jena Vega, PLASTER MACHINE TENDER - 11/16/2018 10:35 AM EDT Physical Therapy Rehab Treatment Note Facility/Department: [facility] Room: [place] [address] NAME: Hiram Madrid : 1935 (83 y.o.) [...] 11/16/18 at 11:10 AM * Jessenia Gordon, COMMISSIONED POLICE OFFICER - 11/16/2018 9:35 AM EDT [facility] RECREATIONAL THERAPY Initial Evaluation Date: 11/16/2018 [...] hearing in left ear) Patient seen at: [phone] Recreation Therapist received referral, chart reviewed and [...] her flower bed. Past leisure interests: Walking, jain, had pets Future leisure interests: Emotional Observed/noted: [...] PT - 11/16/2018 8:20 AM EDT Facility/Department: [facility] Rehabilitation Initial Assessment: Physical Therapy Room: [...] L4 performed by Lenny Corral MD at [facility] OR [facility] Right Chart Reviewed: Yes Patient assessed for [...] to increasing pain) Transfer Assistance: Independent Active Wafer Fabricator: Yes Additional Comments: 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, [...] side to side to initiate log roll care home goals 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 1: pt to be indep with bed mobility care home goal 2: pt to be indep with bed transfers 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 3: pt to [id number] ft with supervision 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 4: pt to navigate 4 steps with SBA 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 5: 30/56 for [place] balance testing ELOS: Plan weeks: 2 Therapy Time: Individual Time In 1000 Time Out 1030 Minutes 30 Lakisha Trevino, PT, 11/16/18 at 12:00 PM * Marybel Ackerman, [facility] - 11/15/2018 11:29 PM EDT Tashia Stark [...] puffs by inhalation with spacer [] Ipratropium Harvey 0.02% unit dose by aerosol Ipratropium Harvey MDI 2 puffs by inhalation with spacer [] Duoneb (Ipratropium + Albuterol) unit dose by aerosol Ipratropium MDI + Albuterol MDI 2 puffs byinhalation w/spacer MDI to Aerosol [] Albuterol Sulfate MDI Albuterol Sulfate 0.083% unit dose by aerosol [] Levalbuterol MDI 2 puffs by inhalation Levalbuterol 1.25 mg unit dose by aerosol [] Ipratropium Harvey MDI by inhalation Ipratropium Harvey 0.02% unit dose by aerosol [] Combivent (Ipratropium + Albuterol) MDI by inhalation Duoneb (Ipratropium + Albuterol) unit doseby aerosol Treatment Assessment [Frequency/Schedule]: Change frequency to: ACCUNEB Q4 PRN per Protocol, P&T, [facility] Points 0 1 2 3 [...] lumbosacral region Impaired mobility Vasovagal syncope [facility] [address] [place] [address] Chief Complaint and Reason for Visit Chief Complaint SYNCOPE Additional Source Comments INFORMATION SOURCE (unrecogn ized section and content) DATE CREATED AUTHOR 04/20/2018 [facility] DATE CREATED AUTHOR AUTHOR'S ORGANIZ ATION 11/24/2018 [facility] DATE CREATED AUTHOR AUTHOR'S ORGANIZ ATION 06/14/2022 [facility] DATE CREATED AUTHOR AUTHOR'S ORGANIZ ATION 08/21/2022 [facility] DATE CREATED AUTHOR AUTHOR'S ORGANIZ ATION 12/23/2022 [facility] DATE CREATED AUTHOR AUTHOR'S ORGANIZ ATION 01/13/2023 [facility] Reason for Visit (unrecogniz ed section and content) Reason Comments Back Pain Left low back pain r adiates down left leg. Pain flared up last monday Status Reason Specialty Diagnoses / Procedures Referre d By Contact Referred To Contact Diagnoses Intractable back pain Lenny Corral MD [address], [address] [place] [address] [facility] Patient Care team informatio n (unrecognized [...] BASED ON THE PRIMARY CLINICAL RECORDS. [facility]. provides no warranty or guarantee of the accuracy or completeness of information in this document.
[2023-03-30 16:14] LABS: Basophils Absolute Auto 0.1 10^3/uL (0.0-0.1); Basophils Percent Auto 0.5 % (0.2-2.0); Eosinophils Absolute Auto 0.1 10^3/uL (0.0-0.7); Eosinophils Percent Auto 0.4 % (0.9-7.0); Hematocrit 36.1 % (36.0-48.0); Hemoglobin 12.8 g/dL (12.0-16.0); Immature Granulocytes Abs Auto 0.08 10^3/uL (0.00-0.03); Immature Granulocytes Pct Auto 0.6 % (0.0-0.5); Lymphocytes Absolute Auto 2.5 10^3/uL (1.2-3.8); Lymphocytes Percent Auto 18.8 % (20.5-60.0); Mean Corpuscular HGB Conc 35.5 g/dL (29.9-35.2); Mean Corpuscular Hemoglobin 32.7 pg (26.7-34.0); Mean Corpuscular Volume 92.1 fL (81.0-99.0); Mean Platelet Volume 8.3 fL (9.5-13.5); Monocytes Percent Auto 7.3 % (1.7-12.0); Neutrophils Absolute Auto 9.5 10^3/uL (1.4-6.5); Neutrophils Percent Auto 72.4 % (43.0-75.0); Platelet Count 430 10^3/uL (150-450); Red Blood Count 3.92 10^6/uL (4.20-5.40); Red Cell Distribution Width 12.9 % (11.0-15.0); White Blood Count 13.1 10^3/uL (4.0-11.0)
[2023-03-30 16:28] LABS: Alanine Aminotransferase 21 U/L (14-59); Albumin Globulin Ratio 0.9; Albumin Level 3.4 g/dL (3.4-5.0); Alkaline Phosphatase 70 U/L (46-116); Anion Gap 13.6; Aspartate Amino Transferase 19 U/L (15-37); BUN Creatinine Ratio 19.3; Bilirubin Total 0.5 mg/dL (0.2-1.0); Calcium 9.2 mg/dL (8.5-10.1); Carbon Dioxide 29.7 mmol/L (21.0-32.0); Chloride 88 mmol/L (98-107); Estimated GFR (African America >60 (>=60); Estimated GFR (Non-African Ame >60 (>=60); Globulin 3.8 g/dL; Glucose 118 mg/dL (74-106); Potassium 3.3 mmol/L (3.5-5.1); Sodium 128 mmol/L (136-145); Total Protein 7.2 g/dL (6.4-8.2)
== END 2023-03-30 15:44 | disposition home or self-care (01) ==
LOC: LAB 15:46
PROVIDERS: PCP Family Medicine; Visit Provider Family Medicine
DX: R53.1 Weakness (principal)
CPT/HCPCS: 36415; 80053; 85025

== ENCOUNTER 2023-04-02 13:49 | Emergency (ER) | payer MEDICARE, OTHER, SELFPAY ==
[2023-04-02] VITALS (21 sets, daily range): BP systolic 168–184; BP diastolic 70–83; PULSE 62–79; RESP 15–32; TEMP 36.5; O2SAT 94–99; BMI 26.5
--- OUTSIDE RECORDS SUMMARY | 2023-04-02 13:57 | XMS_ITS | CCD ---
Author Name Unknown Address [address] [place] [address] Organization [facility] Care Team Providers Care Insurance Claim Auditor Name Role Phone PHYSICIAN, DEFAULT Admitting Unavailable [...] Care Unavailable Calista Aceves Primary Care Provider [phone] CALISTA ACEVES Primary Care Physician DR VALERIE [...] Unavailable MD Addy Daniels Primary Care Provider [phone] DO Camacho Ladd Emergency [facility] Camacho Rocha Admitting Unavailable Addy Daniels [...] Allergy 8 Hives, Eruption of skin (disorder) [place], [place] (2 sources) predniSONE Drug Allergy 7 [facility] Repository (1 source) predniSONE Drug Allergy 3 [facility] Repository (3 sources) atorvastatin; Translations: [atorvastatin] Drug Allergy 3 Unknown (qualifier value) [facility] (2 sources) Ibuprofen; Translations: [ibuprofen] Drug Allergy Unknown (qualifier value) [facility] Natalya Medications Current Medications Medication Drug Class(es) [...] Antibacterial, Polymyxin-class Antibacterial Start: 11-16-2018 End: 11-18-2018 gywvgvti-bvlvnquojk-grgugdfn n (NEOSPORIN) ointment carvedilol (1 source) alpha-Adrenergic [...] 5 August 05, 2022 polyethylene glycol 3350 43564 mg powder for oral solution (1 source) Osmotic Laxative Start: 11-15-2018 polyethylene glycol (GLYCOLAX) packet 17 g Potassium Chloride (7 sources) Start: 08-10-2022 Potassium Chlo ride (Klf-Gyta-Dxi 10) mEq, Oral, BID Start Date: 08/10/22 Status: Ordered Start: 11-05-2018 End: 11-05-2018 potassium chloride (KLOR-CON M) extended release tablet 40 mEq Start: 11-04-2018 20 mEq, Oral, 2 TIMES DAILY, First dose on Aura 11/15/18 at 2100 Dilute with at least 4 ounces of cold water. May further dilute if GI adverse effects occur. Start: 08-06-2018 take 1 tablet by [facility] once daily Potassium Chloride (Klor-Con M20) 20 mEq Tablet,Er Particles/Crystals Active 1 TAB PO Daily August 06, 2018 12:00am sennosides, long-term 8.6 mg oral tablet (1 source) Start: [...] procedure, # 2 tab(s), Refills(s) 0, Pharmacy: 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) drug therapy; Translations: [OTH SENIOR CARE CURRENT DRUG THERAPY] Onset: 12-31-2021 Episodic Residual [...] Range Facility Office Visiton 01-11-2023 Follow-up visit [id number] Hiram Madrid 1935 F Date Provider Department Center 01/11/2023 LESLY GASPAR CARD [facility] Family History Problem Relation Age of Onset Hypertension Mother Lupus Mother Coronary artery disease Mother Heart attack Mother Hypertension Father Aneurysm Father Coronary artery disease Father Hypertension Sister Lupus Sister Family Status - Relation Status Age at Mother Father Sister Level of Service:10856 SD OFFICE/OUTPATIENT ESTABLISHED MOD MDM 30-[address] [facility] Lab Reportson 12-23-2022 Lab Reports [id number] 0TIFF Normal [facility] Urology Office/Clinic Noteon 12-23-2022 Urology Office/Clinic [...] Pt presented to ER due to syncope. [place] was found incidentally on CT. CT AP [...] Contact Information ABDULLAHI NOONAN, MIKAYLA Pereira, URL [address] [place] [address] [phone] Additional Instructions: 6 mos w/ renal fxn [...] Tab losartan 100 mg Tab Potassium Chloride (Asz-Vzwb-Dzf 10), Oral, BID pravastatin 80 mg Tab [...] virus vaccine, (more content not included)... Normal [facility] Comment on above: Result Comment: Elec tronically Signed By: MIKAYLA WEISS PA-C\.br\Date and Time Signed: 12/23/22 12:13 EDT\.br\Electronically Co-Signed By: Jacquie Gan\.br\Date and Time Co-Signed: 12/22/22 12:27 EDT Ambulatory Visit Summaryon 1 02-21-2022 Ambulatory Visit Summary HIRAM MADRID :1935 Visit Date:12/22/2022 Ambulatory Visit Instructions Your Diagnosis Hydronephrosis, right Ureteral stenosis Tests Performed Urnls Dip Stick Auto w/o Microscopy POC 24725 US Renal -- Results Pending -- Please [...] 100 mg Tab) potassium chloride (Potassium Chloride (Ezu-Ndfe-Nam 10)) pravastatin (pravastatin 80 mg Tab) Procedures Performed Appendectomy, Bilateral salpingo-oophorectomy, Cataract extraction and insertion of intraocular lens, Cholecystectomy, Colonoscopy, Procedure on back, Tonsillectomy. Discharge Vitals Blood Pressure 124/84 Height 155 cm Height 61 in Weight 64.8 kg Weight 142.56 lb BMI 26.97 What to do next Scheduled Follow-Up Appointments June. 2023 9:30 AM EDT With: MIKAYLA WEISS PA-C Where: [facility] Natalya Anders [facility] Patient Educationon 12-23-19 Patient Education Urology [...] Follow these instructions at home: ? Take bibg-byc-rchkkco and prescription medicines only as told by [...] provider. Document Revised: 05/26/2020 Document Reviewed: 05/26/2020 [employer] Patient Education ? 2022 Cherrish. Normal [facility] RAD - Ultrasound Reporton RAD - Ultrasound Report [id number] 0TIFF [facility] Reminderson 12-22-2022 Reminders - From: Jacquie Gan To: ERIN Weiss; Sent: 12/22/2022 12:30:05 EDT Show up: 05/23/2023 12:30:00 EDT Subject: JAC and BUN/Creatinine prior to appt Reminder Message Please Remember to:_have pt schedule JAC prior to appt. Please look for BUN/Cr labs from PCP. If unable to locate recent labs, send pt order to complete this. Normal [facility] Orders Onlyon 10-25-2022 Orders Only [id number] Hiram Madrid 1935 F Date Provider Department Center 10/25/2022 [facility] Family History Problem Relation Age of Onset Hypertension Mother Lupus Mother Coronary artery disease Mother Heart attack Mother Hypertension Father Aneurysm Father Coronary artery disease Father Hypertension Sister Lupus Sister Family Status - Relation Status Age at Mother Father Sister Normal [facility] 37on 10-14-2022 37 Increase coreg/carvedilol to 25 mg twice a day- you have 12.5 mg tabs now so take 2 twice a day until this bottle is gone- your next refill will be the higher dose of 25 mg bid. Have labs drawn [facility] Office Visiton 10-14-2022 Follow-up visit [id number] Hiram Madrid 1935 Date Provider Department Center 10/14/2022 LESLY GASPAR SONIA [facility] Family History Problem Relation Age of Onset Hypertension Mother Lupus Mother Coronary artery disease Mother Heart attack Mother Hypertension Father Aneurysm Father Coronary artery disease Father Hypertension Sister Lupus Sister Family Status - Relation Status Age at Mother Father Sister Level of Service:65664 SD OFFICE/OUTPATIENT ESTABLISHED MOD MDM 30-39 MIN [facility] Consent for Procedure/Surger yon 09-07-2022 Consent for Procedure/Surgery [id number]#1. 00CD:127 [facility] Ambulatory Visit Summaryon 0 09-06-2022 Ambulatory [...] 100 mg Tab) potassium chloride (Potassium Chloride (Bcq-Utct-Fju 10)) pravastatin (pravastatin 80 mg Tab) Procedures Performed Appendectomy, Bilateral salpingo-oophorectomy, Cataract extraction and insertion of intraocular lens, Cholecystectomy, Colonoscopy, Procedure on back, Tonsillectomy. Discharge Vitals Height 155 cm Height 61 in Weight 65 kg Weight 143 lb BMI 27.06 What to do next Scheduled Follow-Up Appointments Monday 2:00 PM EDT With: CHRISTY DUMONT, Raymond Mckeon Where: [facility] Patient Educationon 09-07-19 Patient Education Urology [...] Follow these instructions at home: ? Take btlb-qbe-nolweua and prescription medicines only as told by [...] provider. Document Revised: 05/26/2020 Document Reviewed: 05/26/2020 [employer] Patient Education ? 2022 [employer] Normal [facility] Urology Office/Clinic Noteon 09-06-2022 Urology Office/Clinic [...] [facility] [address], [place] [address]- Additional Instructions: 3 mos no labs Patient [...] Tab losartan 100 mg Tab Potassium Chloride (Zfg-Taiz-Qrb 10), Oral, BID pravastatin 80 mg Tab [...] inactivated 12/06/2016 Rec (more content not included)... [facility] Comment on above: Result Comment: Elec tronically Signed By: Raymond HARRISON MD\.br\Date and Time Signed: 09/06/22 13:02 EDT\.br\Electronically Co-Signed By: Josefa Stewart\.br\Date and Time Co-Signed: 09/06/22 13:01 EDT Operative Reporton Operative Report [id number] CD:127 [facility] RAD - MISCon 08-12-2022 RAD - MISC [id number] CD:127 [facility] Ambulatory Visit Summaryon 0 08-10-2022 Ambulatory Visit Summary HIRAM MADRID :1935 Visit Date:08/10/2022 Ambulatory Visit Instructions Your Diagnosis Hydronephrosis, right Aspirin long-term use Tests Performed Urnls Dip Stick Auto w/o Microscopy POC 56193 Your Care Team Attending Physician - Raymond HARRISON MD Primary Care Physician - Addy Daniels MD This Is Your Medications List Contact prescribing physician if questions or concerns amlodipine (amLODIPine 10 mg Tab) aspirin (aspirin 81 mg oral capsule) carvedilol hydrochlorothiazide levothyroxine (levothyroxine 88 mcg (0.088 mg) Tab) losartan (losartan 100 mg Tab) potassium chloride (Potassium Chloride (Lrx-Rokz-Knk 10)) pravastatin (pravastatin 80 mg Tab) Procedures [...] When: Where: [facility] [address] [place] [address]- Medications What How Much When Instructions Unchanged [...] or concerns Unchanged potassium chloride (Potassium Chloride (Qih-Gqnr-Rgx 10)) 2 times a day Contact prescribing physician if questions or concerns Unchanged pravastatin (pravastatin 80 mg Tab) 30 EA, TAKE 1 TABLET BY MOUTH ONCE DAILY Contact prescribing physician if questions or concerns Test Results Urnls Dip Stick Auto w/o Microscopy POC 94332 (08/10/2022) Bilirubin Urine Dipstick - Negative Blood Urine Dipstick - Negative Glucose Urine Dipstick - Negative Ketones Urine Dipstick - Negative Leukocytes Urine Dipstick - Trace Nitrite Urine Dipstick - Negative Protein Urine Dipstick - Negative Specific [place] Urine Dipstick - 1.025 Urine Appearance Urine [...] what caus (more content not included)... Normal [facility] Ambulatory Visit Summary HIRAM MADRID :1935 Visit Date:08/10/2022 Ambulatory Visit Instructions Your Diagnosis Hydronephrosis, right Aspirin long-term use Tests Performed Urnls Dip Stick Auto w/o Microscopy POC 65082 Your Care Team Attending Physician - CHRISTY DUMONT, Raymond Mckeon Primary Care Physician - Addy Daniels MD This Is Your Medications List Contact prescribing physician if questions or concerns amlodipine (amLODIPine 10 mg Tab) aspirin (aspirin 81 mg oral capsule) carvedilol hydrochlorothiazide levothyroxine (levothyroxine 88 mcg (0.088 mg) Tab) losartan (losartan 100 mg Tab) potassium chloride (Potassium Chloride (Uem-Vtyv-Itz 10)) pravastatin (pravastatin 80 mg Tab) Procedures [...] Where: [facility] [address] [place] [address]- Medications What How Much When Instructions Unchanged [...] or concerns Unchanged potassium chloride (Potassium Chloride (Len-Zbbb-Tgx 10)) 2 times a day Contact prescribing physician if questions or concerns Unchanged pravastatin (pravastatin 80 mg Tab) 30 EA, TAKE 1 TABLET BY MOUTH ONCE DAILY Contact prescribing physician if questions or concerns Test Results Urnls Dip Stick Auto w/o Microscopy POC 61872 (08/10/2022) Bilirubin Urine Dipstick - Negative Blood Urine Dipstick - Negative Glucose Urine Dipstick - Negative Ketones Urine Dipstick - Negative Leukocytes Urine Dipstick - Trace Nitrite Urine Dipstick - Negative Protein Urine Dipstick - Negative Specific [place] Urine Dipstick - 1.025 Urine Appearance Urine [...] what caus (more content not included)... Normal [facility] Consent for Procedure/Surger yon 08-10-2022 Consent for Procedure/Surgery [id number] CD:127 [facility] Formson 08-10-2022 Forms [id number] CD:127 [facility] Patient Educationon 08-11-19 Patient Education Urology [...] Follow these instructions at home: ? Take ntnx-qzv-jpddgwo and prescription medicines only as told by [...] provider. Document Revised: 05/26/2020 Document Reviewed: 05/26/2020 [employer] Patient Education ? 2022 Cherrish. [employer] [facility] Urology Office/Clinic Noteon 08-10-2022 Urology Office/Clinic Note Chief Complaint Kidney stones HPI Staff New Pt follow up to [facility] on 08/05/22 due to kidney [...] yo female new pt following up to [facility] ER visit on 08/05/22 due [...] General anesthesia. 2. 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 Follow-up With When Contact Information Raymond HARRISON MD, URL [facility] [address], [place] [address]- Additional Instructions: schedule R URS, possible laser [...] No qualifyin (more content not included)... Normal [facility] Comment on above: Result Comment: Elec tronically Signed By: Raymond HARRISON MD\.br\Date and Time Signed: 08/10/22 09:39 EDT\.br\Electronically Co-Signed By: Josefa Stewart\.br\Date and Time Co-Signed: 08/10/22 09:38 EDT XR [facility] 08-09-2022 XR [facility] [address] [address] XRay Report Signed Patient: Hiram Madrid MR#: [id number] : 1935 Acct:[id number] Age/Sex: 86 / F ADM Date: 08/09/22 Loc: XD Room: [facility] Attending Dr: Raymond Harrison MD Copies to: [...] D.OYou08/09/2022 3:58 PM Dictation Location: [place] [address] Transcribed By: [facility] 08/09/22 1558 Dictated By: Kameron Lopez Jr, DO 08/09/22 1555 Signed By: 08/09/22 [address] [facility] [address] abdomen pelvis wo conon 0 08-06-2022 CT abdomen pelvis wo con [place] [id number] CT Scan Report Signed Patient: Hiram Madrid MR#: [id number] : 1935 Acct:[id number] Age/Sex: 86 / F ADM Date: 08/05/22 Loc: ER Room: Type: [facility] ER Attending Dr: Copies to: [...] Faye Wyman M.D.08/06/2022 8:43 AM Dictation Location: [place] [address] Transcribed By: [facility] 08/06/22 0843 Dictated By: Faye Wyman MD 08/06/22 0830 Signed By: 08/06/22 0843 Normal [facility] Alanine aminotransferase [En zymatic activity/volume] in Serum or PlasmaOrdered By: Camacho Ladd on 08-05-2022 ALT [Catalytic activity/Vol] 16 U/L 7-52 [facility] Albumin [Mass/volume] in Ser um or Plasma by Bromocresol green (BCG) dye binding methoOrdered By: Camacho Ladd on 08-05-2022 Albumin BCG dye [Mass/Vol] 4.4 g/dL 3.5-5.7 [facility] Alkaline phosphatase [Enzyma tic activity/volume] in Serum or PlasmaOrdered By: Camacho Ladd on 08-05-2022 ALP [Catalytic activity/Vol] 61 U/L 34-104 [facility] Aspartate aminotransferase [ Enzymatic activity/volume] in Serum or PlasmaOrdered By: Camacho Ladd on 08-05-2022 AST [Catalytic activity/Vol] 21 U/L 13-39 [facility] Automated erythrocytes count in urine sediment (number/area)Ordered By: Camacho Ladd on 08-05-2022 RBC Auto (Urine sed) [#/Area] 0-1 [HPF] 0-4 [facility] Automated leukocytes count i n urine sediment (number/area)Ordered By: Camacho Ladd on 08-05-2022 WBC Auto (Urine sed) [#/Area] 1-2 [HPF] 0-4 [facility] Basic Metabolic Panelon 07-21 Anion gap [Moles/Vol] 17.8 mmol/L High 6.0-15.0 [facility] Comment on above: Performed By: #### H S TROP, HEPATIC, LIPASE, CBC, BMP #### [facility] [address] Calcium [Mass/Vol] 9.7 mg/dL Normal 8.6-10.3 [facility] Comment on above: Performed By: #### H S TROP, HEPATIC, LIPASE, CBC, BMP #### [facility] [address] [place] [address] [place] Chloride [Moles/Vol] 87 mmol/L Low 98-107 [facility] Comment on above: Performed By: #### H S TROP, HEPATIC, LIPASE, CBC, BMP #### [facility] [address] [place] [address] [place] CO2 [Moles/Vol] 23.2 mmol/L Normal 21.0-31.0 [facility] Comment on above: Performed By: #### H S TROP, HEPATIC, LIPASE, CBC, BMP #### [facility] [address] Creatinine [Mass/Vol] 1.03 mg/dL Normal 0.60-1.20 [facility] Comment on above: Performed By: #### H S TROP, HEPATIC, LIPASE, CBC, BMP #### [facility] [address] Creatinine Clr Calc Pharmacy 35.13 [facility] Comment on above: Performed By: #### H S TROP, HEPATIC, LIPASE, CBC, BMP #### [place] [address] [place] GFR/1.73 sq M.predicted MDRD (S/P/Bld) [Vol rate/Area] 53.284 mL/min/{1.73_m2} [facility] Comment on above: Performed By: #### H S TROP, HEPATIC, LIPASE, CBC, BMP #### [address] Glucose [Mass/Vol] 156 mg/dL High 70-100 [facility] Comment on above: Result Comment: [facility] Glucose Reference Range is dependent on time and content of last meal. Glucose of more than 200 mg/dL in a nonstressed, ambulatory subject supports the diagnosis of Diabetes Mellitus. ADA recommended reference range Performed By: #### H S TROP, HEPATIC, LIPASE, CBC, BMP #### [address] Potassium [Moles/Vol] 3.0 mmol/L Low 3.5-5.1 [facility] Comment on above: Performed By: #### H S TROP, HEPATIC, LIPASE, CBC, BMP #### [place] [address] [place] Sodium [Moles/Vol] 125 mmol/L Low 136-145 [facility] Comment on above: Performed By: #### H S TROP, HEPATIC, LIPASE, CBC, BMP #### [place] [address] [place] Urea nitrogen [Mass/Vol] 12 mg/dL Normal 7-25 [facility] Comment on above: Performed By: #### H S TROP, HEPATIC, LIPASE, CBC, BMP #### [facility] [address] Basophils Auto (Bld) [#/Vol] Ordered By: Camacho Ladd on 08-05-2022 Basophils (Bld) [#/Vol] 0.1 10*3/uL 0.0-0.2 [facility] Basophils/100 WBC Auto (Bld) Ordered By: Camacho Ladd on 08-05-2022 Basophils/100 WBC (Bld) 0.4 % . [facility] Bilirubin Test strip Ql (U)O rdered By: Camacho Ladd on 08-05-2022 Bilirubin Ql (U) Negative Negative [facility] Bilirubin.direct [Mass/volum e] in Serum or PlasmaOrdered By: Camacho Ladd on 08-05-2022 Bilirubin.direct [Mass/Vol] 0.10 mg/dL 0.03-0.18 [facility] Bilirubin.total [Mass/volume ] in Serum or PlasmaOrdered By: Camacho Ladd on 08-05-2022 Bilirubin [Mass/Vol] 0.7 mg/dL 0.3-1.0 [facility] Calcium [Mass/volume] in Ser um or PlasmaOrdered By: Camacho Ladd on 08-05-2022 Calcium [Mass/Vol] 9.7 mg/dL 8.6-10.3 [facility] Carbon dioxide, total [Moles /volume] in Serum or PlasmaOrdered By: Camacho Ladd on 08-05-2022 CO2 [Moles/Vol] 23.2 mmol/L 21.0-31.0 [facility] Chloride [Moles/volume] in S willa or PlasmaOrdered By: Camacho Ladd on 08-05-2022 Chloride [Moles/Vol] 87 mmol/L 98-107 [facility] Color Auto (U)Ordered By: Ender Ladd on 08-05-2022 Color (U) Yellow Yellow [facility] Complete Blood Count Auto Di ffon 08-05-2022 Basophils (Bld) [#/Vol] 0.1 10*3/uL Normal 0.0-0.2 [facility] Comment on above: Result Comment: PERF ORMED BY: [place] [address] PATHOLOGIST PHYSICAL SCIENCE PROFESSOR GOSIA MCADAMS M.D. Performed By: #### H S TROP, HEPATIC, LIPASE, CBC, BMP #### [address] Basophils/100 WBC (Bld) 0.4 % Normal . [facility] Comment on above: Performed By: #### H S TROP, HEPATIC, LIPASE, CBC, BMP #### [address] Eosinophils (Bld) [#/Vol] 0.1 10*3/uL Normal 0.0-0.45 [facility] Comment on above: Performed By: #### H S TROP, HEPATIC, LIPASE, CBC, BMP #### [address] Eosinophils/100 WBC (Bld) 0.6 % Normal . [facility] Comment on above: Performed By: #### H S TROP, HEPATIC, LIPASE, CBC, BMP #### [address] Erythrocyte distribution width (RBC) [Ratio] 13.6 % Normal 11.9-15.3 [facility] Comment on above: Performed By: #### H S TROP, HEPATIC, LIPASE, CBC, BMP #### [address] Hematocrit (Bld) [Volume fraction] 37.3 % Normal 34.0-46.4 [facility] Comment on above: Performed By: #### H S TROP, HEPATIC, LIPASE, CBC, BMP #### [address] Hemoglobin (Bld) [Mass/Vol] 13.0 g/dL Normal 11.8-15.4 [facility] Comment on above: Performed By: #### H S TROP, HEPATIC, LIPASE, CBC, BMP #### [place] [id number] [place] Lymphocytes (Bld) [#/Vol] 3.1 10*3/uL Normal 1.00-4.8 [facility] Comment on above: Performed By: #### H S TROP, HEPATIC, LIPASE, CBC, BMP #### [facility] [address] [place] [address] Lymphocytes/100 WBC (Bld) 21.9 % Normal . [facility] Comment on above: Performed By: #### H S TROP, HEPATIC, LIPASE, CBC, BMP #### [address] MCH (RBC) [Entitic mass] 31.6 pg Normal 24.7-34.3 [facility] Comment on above: Performed By: #### H S TROP, HEPATIC, LIPASE, CBC, BMP #### [address] MCV (RBC) [Entitic vol] 90.4 fL Normal 80-100 [facility] Comment on above: Performed By: #### H S TROP, HEPATIC, LIPASE, CBC, BMP #### [address] Mean Corpuscular HGB Conc 35.0 g/dL Normal 32.0-35.0 [facility] Comment on above: Performed By: #### H S TROP, HEPATIC, LIPASE, CBC, BMP #### [address] Monocytes (Bld) [#/Vol] 1.4 10*3/uL High 0.0-0.8 [facility] Comment on above: Performed By: #### H S TROP, HEPATIC, LIPASE, CBC, BMP #### [address] Monocytes/100 WBC (Bld) 20.58 % High 0.00-20.00 [facility] Comment on above: Result Comment: For adults in ED, MDW > 20.0 may be associated with a higher risk of sepsis during the first 12 hrs of hospital admission Performed By: #### H S TROP, HEPATIC, LIPASE, CBC, BMP #### [address] Monocytes/100 WBC (Bld) 9.6 % Normal . [facility] Comment on above: Performed By: #### H S TROP, HEPATIC, LIPASE, CBC, BMP #### [address] Neutrophils (Bld) [#/Vol] 9.6 10*3/uL High 1.8-7.7 [facility] Comment on above: Performed By: #### H S TROP, HEPATIC, LIPASE, CBC, BMP #### [address] Neutrophils/100 WBC (Bld) 67.5 % Normal . [facility] Comment on above: Performed By: #### H S TROP, HEPATIC, LIPASE, CBC, BMP #### [address] NRBC% 0.1 /100{WBC} Normal 0-0.5 [facility] Comment on above: Performed By: #### H S TROP, HEPATIC, LIPASE, CBC, BMP #### [address] Platelet mean volume (Bld) [Entitic vol] 7.2 fL Normal 6.3-10.7 [facility] Comment on above: Performed By: #### H S TROP, HEPATIC, LIPASE, CBC, BMP #### [place] [address] [place] Platelets (Bld) [#/Vol] 500 10*3/uL High 150-450 [facility] Comment on above: Performed By: #### H S TROP, HEPATIC, LIPASE, CBC, BMP #### [address] RBC (Bld) [#/Vol] 4.13 10*6/uL Normal 3.60-5.00 [facility] Comment on above: Performed By: #### H S TROP, HEPATIC, LIPASE, CBC, BMP #### [place] [address] [place] WBC (Bld) [#/Vol] 14.2 10*3/uL High 3.8-11.6 [facility] Comment on above: Performed By: #### H S TROP, HEPATIC, LIPASE, CBC, BMP #### [facility] [address] [place] [id number] [place] Creatinine [Mass/volume] in Serum or PlasmaOrdered By: Camacho Ladd on 08-05-2022 Creatinine [Mass/Vol] 1.03 mg/dL 0.60-1.20 [facility] Dipstick and Microscopicon 0 08-05-2022 Appearance (U) Cloudy Critically abnormal Clear [facility] Comment on above: Order Comment: Name Collection Type:: Clean-Voided Midstream Performed By: #### A DDONUAPLUS #### [facility] [address] Bacteria,Urine None Seen Normal None Seen [facility] Comment on above: Order Comment: Name Collection Type:: Clean-Voided Midstream Performed By: #### A DDONUAPLUS #### [facility] [address] [place] [address] [place] Bilirubin,Urine Negative Normal Negative [facility] Comment on above: Order Comment: Name Collection Type:: Clean-Voided Midstream Performed By: #### A DDONUAPLUS #### [facility] [address] [id number] [place] Color (U) Yellow Normal Yellow [facility] Comment on above: Order Comment: Name Collection Type:: Clean-Voided Midstream Performed By: #### A DDONUAPLUS #### [facility] [address] [id number] [place] Glucose Ql (U) Normal Normal Normal [facility] Comment on above: Order Comment: Name Collection Type:: Clean-Voided Midstream Performed By: #### A DDONUAPLUS #### [facility] [address] [id number] [place] Hyaline Casts,Urine None Seen Normal 0-8 [facility] Comment on above: Order Comment: Name Collection Type:: Clean-Voided Midstream Result Comment: PERF ORMED BY: [place] [address] PATHOLOGIST PHYSICAL SCIENCE PROFESSOR GOSIA MCADAMS M.D. Performed By: #### A DDONUAPLUS #### [address] Ketones Ql (U) Negative Normal Negative [facility] Comment on above: Order Comment: Name Collection Type:: Clean-Voided Midstream Performed By: #### A DDONUAPLUS #### [address] Leukocyte esterase Test strip Ql (U) 1+ High Negative [facility] Comment on above: Order Comment: Name Collection Type:: Clean-Voided Midstream Performed By: #### A DDONUAPLUS #### [place] [address] [place] Nitrite,Urine Negative Normal Negative [facility] Comment on above: Order Comment: Name Collection Type:: Clean-Voided Midstream Performed By: #### A DDONUAPLUS #### [place] [address] [place] Occult Blood,Urine Negative Normal Negative [facility] Comment on above: Order Comment: Name Collection Type:: Clean-Voided Midstream Result Comment: PERF ORMED BY: [place] [address] PATHOLOGIST PHYSICAL SCIENCE PROFESSOR GOSIA MCADAMS M.D. Performed By: #### A DDONUAPLUS #### [place] [address] [place] pH (U) 7.0 [pH] Normal 5.0-9.0 [facility] Comment on above: Order Comment: Name Collection Type:: Clean-Voided Midstream Performed By: #### A DDONUAPLUS #### [place] [address] [place] Protein,Urine Negative Normal Negative [facility] Comment on above: Order Comment: Name Collection Type:: Clean-Voided Midstream Performed By: #### A DDONUAPLUS #### [address] [place] [address] [place] RBC LM.HPF (Urine sed) [#/Area] 0 /[HPF] Normal 0-4 [facility] Comment on above: Order Comment: Name Collection Type:: Clean-Voided Midstream Performed By: #### A DDONUAPLUS #### [facility] [address] [place] [address] Specificy [place],Urine 1.009 Normal 1.001-1.030 [facility] Comment on above: Order Comment: Name Collection Type:: Clean-Voided Midstream Performed By: #### A DDONUAPLUS #### [facility] [address] [place] [address] Squamous Epithelial Cell,Urine 0-1 Normal 0-2 [facility] Comment on above: Order Comment: Name Collection Type:: Clean-Voided Midstream Performed By: #### A DDONUAPLUS #### [facility] [address] [place] [address] Urobilinogen,Urine Normal Normal Normal [facility] Comment on above: Order Comment: Name Collection Type:: Clean-Voided Midstream Performed By: #### A DDONUAPLUS #### [facility] [address] [place] [address] [place] WBC,Urine 1-2 Normal 0-4 [facility] Comment on above: Order Comment: Name Collection Type:: Clean-Voided Midstream Performed By: #### A DDONUAPLUS #### [facility] [address] [place] [address] ECG 12 lead ECGon 08-05-2022 ECG 12 lead ECG [facility] [place] [address] [place] [address] Electrocardiograph Report Signed Patient: Hiram Madrid MR#: [id number] : 1935 Acct:[id number] Age/Sex: 86 / F ADM Date: 08/05/22 Loc: ER Room: Type: [facility] ER Attending Dr: Ordering Provider: [...] branch block Confirmed by Camacho Ladd DO ([id number]) on 08/06/2022 1:49:12 AM Referred By: Electronically Signed By:Camacho Ladd DO Transcribed By: MUS Signed By Camacho Ladd DO [id number] Normal [facility] Eosinophils Auto (Bld) [#/Vo l]Ordered By: Camacho Ladd on 08-05-2022 Eosinophils (Bld) [#/Vol] 0.1 10*3/uL 0.0-0.45 [facility] Eosinophils/100 WBC Auto (Bl d)Ordered By: Camacho Ladd on 08-05-2022 Eosinophils/100 WBC (Bld) 0.6 % . [facility] Erythrocyte distribution wid th Auto (RBC) [Ratio]Ordered By: Camacho Ladd on 08-05-2022 Erythrocyte distribution width (RBC) [Ratio] 13.6 % 11.9-15.3 [facility] Globulin Calc (S) [Mass/Vol] Ordered By: Camacho Ladd on 08-05-2022 Globulin (S) [Mass/Vol] 2.9 g/dL [facility] Glucose [Mass/volume] in Ser um or PlasmaOrdered By: Camacho Ladd on 08-05-2022 Glucose [Mass/Vol] 156 mg/dL 70-100 [facility] Comment on above: ADA recommended refe rence rangeRandom Glucose Reference Range is dependent on time and content of last meal. Glucose of more than 200 mg/dL in a nonstressed, ambulatory subject supports the diagnosis of Diabetes Mellitus. Hematocrit Auto (Bld) [Volum e fraction]Ordered By: Camacho Ladd on 08-05-2022 Hematocrit (Bld) [Volume fraction] 37.3 % 34.0-46.4 [facility] Hemoglobin [Mass/volume] in BloodOrdered By: Camacho Ladd on 08-05-2022 Hemoglobin (Bld) [Mass/Vol] 13.0 g/dL 11.8-15.4 [facility] Hepatic Panelon 08-05-2022 Albumin [Mass/Vol] 4.4 g/dL Normal 3.5-5.7 [facility] Comment on above: Performed By: #### H S TROP, HEPATIC, LIPASE, CBC, BMP #### [facility] [address] Albumin/Globulin [Mass ratio] 1.5 {ratio} Normal [facility] Comment on above: Performed By: #### H S TROP, HEPATIC, LIPASE, CBC, BMP #### [facility] [address] ALP [Catalytic activity/Vol] 61 U/L Normal 34-104 [facility] Comment on above: Performed By: #### H S TROP, HEPATIC, LIPASE, CBC, BMP #### [facility] [address] [place] [address] [place] ALT [Catalytic activity/Vol] 16 U/L Normal 7-52 [facility] Comment on above: Performed By: #### H S TROP, HEPATIC, LIPASE, CBC, BMP #### [facility] [address] [place] [address] [place] AST [Catalytic activity/Vol] 21 U/L Normal 13-39 [facility] Comment on above: Performed By: #### H S TROP, HEPATIC, LIPASE, CBC, BMP #### [facility] [address] [place] [address] [place] Bilirubin [Mass/Vol] 0.7 mg/dL Normal 0.3-1.0 [facility] Comment on above: Performed By: #### H S TROP, HEPATIC, LIPASE, CBC, BMP #### [facility] [address] [place] [address] [place] Bilirubin,Indirect 0.6 mg/dL Normal [facility] Comment on above: Performed By: #### H S TROP, HEPATIC, LIPASE, CBC, BMP #### [facility] [address] [place] [address] [place] Bilirubin.indirect [Mass/Vol] 0.10 mg/dL Normal 0.03-0.18 [facility] Comment on above: Performed By: #### H S TROP, HEPATIC, LIPASE, CBC, BMP #### [facility] [address] Globulin (S) [Mass/Vol] 2.9 g/dL Normal [facility] Comment on above: Performed By: #### H S TROP, HEPATIC, LIPASE, CBC, BMP #### [facility] [address] Protein [Mass/Vol] 7.3 g/dL Normal 6.4-8.9 [facility] Comment on above: Performed By: #### H S TROP, HEPATIC, LIPASE, CBC, BMP #### [address] Ketones Auto test strip (U) [Mass/Vol]Ordered By: Camacho Ladd on 08-05-2022 Ketones (U) [Mass/Vol] Negative Negative [facility] - UrinalysisOrder ed By: Camacho Ladd on 08-05-2022 Hyaline casts LM Ql (Urine sed) None seen [LPF] 0-8 [facility] Leukocytes [#/volume] correc sofiya for nucleated erythrocytes in Blood by Automated counOrdered By: Camacho Ladd on 08-05-2022 WBC corrected for nucl RBC Auto (Bld) [#/Vol] 14.2 10*3/uL 3.8-11.6 [facility] Lipaseon 08-05-2022 Lipase [Catalytic activity/Vol] 23.0 U/L Normal 11.0-82.0 [facility] Comment on above: Result Comment: PERF ORMED BY: [address] [place] [address] PATHOLOGIST PHYSICAL SCIENCE PROFESSOR GOSIA MCADAMS M.D. Performed By: #### H S TROP, HEPATIC, LIPASE, CBC, BMP #### [facility] [address] [place] [address] Lipase [Enzymatic activity/v olume] in Serum or PlasmaOrdered By: Camacho Ladd on 08-05-2022 Lipase [Catalytic activity/Vol] 23.0 U/L 11.0-82.0 [facility] Lymphocytes Auto (Bld) [#/Vo l]Ordered By: Camacho Ladd on 08-05-2022 Lymphocytes (Bld) [#/Vol] 3.1 10*3/uL 1.00-4.8 [facility] Lymphocytes/100 WBC Auto (Bl d)Ordered By: Camacho Ladd on 08-05-2022 Lymphocytes/100 WBC (Bld) 21.9 % . [facility] MCH Auto (RBC) [Entitic mass ]Ordered By: Camacho Ladd on 08-05-2022 MCH (RBC) [Entitic mass] 31.6 pg 24.7-34.3 [facility] MCHC Auto (RBC) [Mass/Vol]Or dered By: Camacho Ladd on 08-05-2022 MCHC (RBC) [Mass/Vol] 35.0 g/dL 32.0-35.0 [facility] MCV Auto (RBC) [Entitic vol] Ordered By: Camacho Ladd on 08-05-2022 MCV (RBC) [Entitic vol] 90.4 fL 80-100 [facility] Monocyte distribution width [Entitic volume] in Blood by AutomatedOrdered By: Camacho Ladd on 08-05-2022 Monocyte distribution width Auto (Bld) [Entitic vol] 20.58 % 0.00-20.00 [facility] Comment on above: For adults in ED, MD W > 20.0 may be associated with a higher risk of sepsis during the first 12 hrs of hospital admission Monocytes Auto (Bld) [#/Vol] Ordered By: Camacho Ladd on 08-05-2022 Monocytes (Bld) [#/Vol] 1.4 10*3/uL 0.0-0.8 [facility] Monocytes/100 WBC Auto (Bld) Ordered By: Camacho Ladd on 08-05-2022 Monocytes/100 WBC (Bld) 9.6 % . [facility] Neutrophils Auto (Bld) [#/Vo l]Ordered By: Camacho Ladd on 08-05-2022 Neutrophils (Bld) [#/Vol] 9.6 10*3/uL 1.8-7.7 [facility] Neutrophils/100 WBC Auto (Bl d)Ordered By: Camacho Ladd on 08-05-2022 Neutrophils/100 WBC (Bld) 67.5 % . [facility] Nitrite Test strip Ql (U)Ord ered By: Camacho Ladd on 08-05-2022 Nitrite Ql (U) Negative Negative [facility] No Panel InformationOrdered By: Camacho Ladd on 08-05-2022 Estimated GFR (CKD-EPI) 53.284 mL/Min [facility] Creatinine Clearance (Chem 35.13 [facility] Nucleated erythrocytes [Pres ence] in Blood by Automated countOrdered By: Camacho Ladd on 08-05-2022 Nucleated RBC Auto Ql (Bld) 0.1 /100{WBC} 0-0.5 [facility] Platelet mean volume Auto (B ld) [Entitic vol]Ordered By: Camacho Ladd on 08-05-2022 Platelet mean volume (Bld) [Entitic vol] 7.2 fL 6.3-10.7 [facility] Platelets Auto (Bld) [#/Vol] Ordered By: Camacho Ladd on 08-05-2022 Platelets (Bld) [#/Vol] 500 10*3/uL 150-450 [facility] Potassium [Moles/volume] in Serum or PlasmaOrdered By: Camacho Ladd on 08-05-2022 Potassium [Moles/Vol] 3.0 mmol/L 3.5-5.1 [facility] Protein Auto test strip (U) [Mass/Vol]Ordered By: Camacho Ladd on 08-05-2022 Protein (U) [Mass/Vol] Negative Negative [facility] Protein [Mass/volume] in Ser um or PlasmaOrdered By: Camacho Ladd on 08-05-2022 Protein [Mass/Vol] 7.3 g/dL 6.4-8.9 [facility] RBC Auto (Bld) [#/Vol]Ordere d By: Camacho Ladd on 06-16-2023 RBC (Bld) [#/Vol] 4.13 10*6/uL 3.60-5.00 [facility] Serum or plasma albumin/glob ulin mass ratioOrdered By: Camacho Ladd on 08-05-2022 Albumin/Globulin [Mass ratio] 1.5 {ratio} [facility] Serum or plasma anion gap de terminationOrdered By: Camacho Ladd on 08-05-2022 Anion gap [Moles/Vol] 17.8 mmol/L [facility] or plasma non-glucuron idated bilirubin measurement (mass/volume)Ordered By: Camacho Ladd on 08-05-2022 Bilirubin.indirect [Mass/Vol] 0.6 mg/dL [facility] Sodium [Moles/volume] in Ser um or PlasmaOrdered By: Camacho Ladd on 08-05-2022 Sodium [Moles/Vol] 125 mmol/L 136-145 [facility] Specific gravity Auto test s trip (U) [Rel density]Ordered By: Camacho Ladd on 08-05-2022 Specific gravity (U) [Rel density] 1.009 1.001-1.030 [facility] Squamous epithelial cells de tection in urine sediment by light microscopyOrdered By: Camacho Ladd on 08-05-2022 Epithelial cells.squamous LM Ql (Urine sed) 0-1 [HPF] 0-2 [facility] Troponin I High Sensitivityo n 08-05-2022 Troponin I High Sensitivity 7.7 pg/mL Normal 0.0-15.0 [facility] Comment on above: Result Comment: PERF ORMED BY: [place] [address] PATHOLOGIST PHYSICAL SCIENCE PROFESSOR GOSIA MCADAMS M.D. Performed By: #### H S TROP, HEPATIC, LIPASE, CBC, BMP #### [address] Troponin I.cardiac [Mass/vol ume] in Serum or Plasma by Detection limit <= 0.01 ng/Ordered By: Camacho Ladd on 08-05-2022 Troponin I.cardiac DL <= 0.01 ng/mL [Mass/Vol] 7.7 pg/mL 0.0-15.0 [facility] Urea nitrogen [Mass/volume] in Serum or PlasmaOrdered By: Camacho Ladd on 08-05-2022 Urea nitrogen [Mass/Vol] 12 mg/dL 7-25 [facility] Urine bacteria detection by automated methodOrdered By: Camacho Ladd on 08-05-2022 Bacteria Auto Ql (U) None seen None Seen [facility] Urine clarity by refractomet ry automatedOrdered By: Camacho Ladd on 08-05-2022 Clarity Refractometry automated (U) Cloudy Clear [facility] Urine glucose measurement by automated test strip (mass/volume)Ordered By: Camacho Ladd on 08-05-2022 Glucose Auto test strip (U) [Mass/Vol] Normal mg/dL Normal [facility] Urine hemoglobin detection b y automated test stripOrdered By: Camacho Ladd on 08-05-2022 Hemoglobin Auto test strip Ql (U) Negative Negative [facility] Urine leukocyte esterase det ection by automated test stripOrdered By: Camacho Ladd on 08-05-2022 Leukocyte esterase Auto test strip Ql (U) 1+ Negative [facility] Urobilinogen Auto test strip (U) [Mass/Vol]Ordered By: Camacho Ladd on 08-05-2022 Urobilinogen (U) [Mass/Vol] Normal mg/dL Normal [facility] WBC Auto (Bld) [#/Vol]Ordere d By: Camacho Ladd on 08-05-2022 WBC (Bld) [#/Vol] 14.2 10*3/uL 3.8-11.6 [facility] pH Auto test strip (U)Ordere d By: Camacho Ladd on 08-05-2022 pH (U) 7.0 [pH] 5.0-9.0 [facility] BNPon 06-13-2022 Natriuretic peptide B (Bld) [Mass/Vol] 142.0 pg/mL Normal <=1,800.0 [facility] Comment on above: Performed By: #### T , BMP #### [facility] [address] [place] [address] Dr. Tasha Dodson CBC AUTO DIFFon 06-13-2022 BASO # 0.1 103/ul Normal 0.0-0.1 [facility] Comment on above: Performed By: #### T SH, BMP #### [facility] [address] [place] [address] Dr. Tasha Dodson Basophils/100 WBC (Bld) 1.0 % Normal 0.2-2.0 [facility] Comment on above: Performed By: #### T SH, BMP #### [facility] [address] [place] [address] Dr. Tasha Dodson EO # 0.3 103/ul Normal 0.0-0.7 [facility] Comment on above: Performed By: #### T SH, BMP #### [facility] [address] [place] [address] Dr. Tasha Dodson Eosinophils/100 WBC (Bld) 2.6 % Normal 0.9-7.0 [facility] Comment on above: Performed By: #### T SH, BMP #### [facility] [address] [place] [address] Dr. Tasha Dodson Erythrocyte distribution width (RBC) [Ratio] 13.4 % Normal 11.0-15.0 [facility] Comment on above: Performed By: #### T SH, BMP #### [facility] [address] [place] [address] Dr. Tasha Dodson Hematocrit (Bld) [Volume fraction] 39.5 % Normal 36.0-48.0 [facility] Comment on above: Performed By: #### T SH, BMP #### [facility] [address] [place] [address] Dr. Tasha Dodson Hemoglobin (Bld) [Mass/Vol] 13.1 g/dL Normal 12.0-16.0 [facility] Comment on above: Performed By: #### T SH, BMP #### [facility] [address] [place] [address] Dr. Tasha Dodson IG # 0.07 10e3/ul Critically high 0.00-0.03 [facility] Comment on above: Performed By: #### T SH, BMP #### [facility] [address] [address] [address] Tasha Dodson IG % 0.6 % Critically high 0.0-0.5 [facility] Comment on above: Performed By: #### T SH, BMP #### [facility] [address] [address] [address] Tasha Dodson LYMPH # 2.5 103/ul Normal 1.2-3.8 [facility] Comment on above: Performed By: #### T SH, BMP #### [facility] [address] [address] [address] Tasha Dodson Lymphocytes/100 WBC (Bld) 22.9 % Normal 20.5-60.0 [facility] Comment on above: Performed By: #### T SH, BMP #### [facility] [address] [address] [address] Tasha Dodson MANUAL DIFF REQ NO Normal [facility] Comment on above: Performed By: #### T SH, BMP #### [facility] [address] [address] [address] Tasha Dodson MCH (RBC) [Entitic mass] 30.7 pg Normal 26.7-34.0 [facility] Comment on above: Performed By: #### T SH, BMP #### [facility] [address] [address] [address] Tasha Dodson MCHC (RBC) [Mass/Vol] 33.2 g/dL Normal 29.9-35.2 [facility] Comment on above: Performed By: #### T SH, BMP #### [facility] [address] [address] [address] Tasha Dodson MCV (RBC) [Entitic vol] 92.5 fL Normal 81.0-99.0 [facility] Comment on above: Performed By: #### T SH, BMP #### [facility] [address] [address] [address] Tasha Dodson MONO # 0.8 103/ul Normal 0.3-0.8 [facility] Comment on above: Performed By: #### T SH, BMP #### [facility] [address] [address] [address] Tasha Dodson Monocytes/100 WBC (Bld) 7.0 % Normal 1.7-12.0 [facility] Comment on above: Performed By: #### T SH, BMP #### [facility] [address] [place] [address] Dr. Tasha Dodson NEUT # 7.2 103/ul Critically high 1.4-6.5 [facility] Comment on above: Performed By: #### T SH, BMP #### [facility] [address] [place] [address] Dr. Tasha Dodson Neutrophils/100 WBC (Bld) 65.9 % Normal 43.0-75.0 [facility] Comment on above: Performed By: #### T SH, BMP #### [facility] [address] [place] [address] Dr. Tasha Dodson Platelet mean volume (Bld) [Entitic vol] 8.0 fL Critically low 9.5-13.5 [facility] Comment on above: Performed By: #### T SH, BMP #### [facility] [address] [place] [address] Dr. Tasha Dodson PLT 449 103/ul Normal 150-450 [facility] Comment on above: Performed By: #### T SH, BMP #### [facility] [address] [place] [address] Dr. Tasha Dodson RBC 4.27 106/ul Normal 4.20-5.40 [facility] Comment on above: Performed By: #### T SH, BMP #### [facility] [address] [place] [address] Dr. Tasha Dodson WBC 10.9 103/ul Normal 4.0-11.0 [facility] Comment on above: Performed By: #### T SH, BMP #### [facility] [address] [place] [address] Dr. Tasha Dodson FREE THYROXINE INDEX T7on FTI 3.67 Normal 1.30-4.50 [facility] Comment on above: Performed By: #### T SH, BMP #### [facility] [address] [place] [address] Dr. Tasha Dodson T3U 36.0 % Normal 30.0-39.0 [facility] Comment on above: Performed By: #### T SH, BMP #### [facility] [address] [place] [address] Dr. Tasha Dodson T4 [Mass/Vol] 10.20 ug/dL Normal 4.80-13.90 [facility] Comment on above: Performed By: #### T SH, BMP #### [facility] [address] [place] [address] Dr. Tasha Dodson PROF CHEM 8 (BAS METB)on Anion gap [Moles/Vol] 13.8 mmol/L Normal [facility] Comment on above: Performed By: #### T SH, BMP #### [facility] [address] [place] [address] Dr. Tasha Dodson Calcium [Mass/Vol] 9.8 mg/dL Normal 8.5-10.1 [facility] Comment on above: Performed By: #### T SH, BMP #### [facility] [address] [place] [address] Dr. Tasha Dodson Chloride [Moles/Vol] 95 mmol/L Critically low 98-107 [facility] Comment on above: Performed By: #### T SH, BMP #### [facility] [address] [place] [address] Dr. Tasha Dodson CO2 [Moles/Vol] 30.5 mmol/L Normal 21.0-32.0 [facility] Comment on above: Performed By: #### T SH, BMP #### [facility] [address] [place] [address] Dr. Tasha Dodson Creatinine [Mass/Vol] 0.78 mg/dL Normal 0.55-1.02 [facility] Comment on above: Performed By: #### T SH, BMP #### [facility] [address] [place] [address] Dr. Tasha Dodson EGFR-AF PANAMANIAN >60 Normal >=60 [facility] Comment on above: Performed By: #### T SH, BMP #### [facility] [address] [place] [address] Dr. Tasha Dodson EGFR-NON AF PANAMANIAN >60 Normal >=60 [facility] Comment on above: Performed By: #### T SH, BMP #### [facility] [address] [place] [address] Dr. Tasha Dodson Glucose [Mass/Vol] 108 mg/dL Critically high 74-106 [facility] Comment on above: Performed By: #### T SH, BMP #### [facility] [address] [place] [address] Dr. Tasha Dodson Potassium [Moles/Vol] 3.3 mmol/L Critically low 3.5-5.1 [facility] Comment on above: Performed By: #### T SH, BMP #### [facility] [address] [place] [address] Dr. Tasha Dodson Sodium [Moles/Vol] 136 mmol/L Normal 136-145 [facility] Comment on above: Performed By: #### T SH, BMP #### [facility] [address] [place] [address] Dr. Tasha Dodson Urea nitrogen [Mass/Vol] 11.0 mg/dL Normal 7.0-18.0 [facility] Comment on above: Performed By: #### T SH, BMP #### [facility] [address] [place] [address] Dr. Tasha Dodson Urea nitrogen/Creatinine [Mass ratio] 14.1 mg/mg Normal [facility] Comment on above: Performed By: #### T SH, BMP #### [facility] [address] [place] [address] Dr. Tasha Dodson TSHon 06-13-2022 TSH 2.583 uIU/mL Normal 0.358-3.740 [facility] Comment on above: Performed By: #### T SH, BMP #### [facility] [address] [place] [address] Dr. Tasha Dodson UA (CLEAN/CATCH) PROGRAM TECHNICIAN/MICRO I F IND.on 06-13-2022 Bilirubin Ql (U) Negative Normal NEGATIVE [facility] Comment on above: Performed By: #### T SH, BMP #### [facility] [address] [place] [address] Dr. Tasha Dodson Clarity (U) CLEAR Normal CLEAR [facility] Comment on above: Performed By: #### T SH, BMP #### [facility] [address] [place] [address] Dr. Tasha Dodson Color (U) LT. YELLOW Normal YELLOW [facility] Comment on above: Performed By: #### T SH, BMP #### [facility] [address] [place] [address] Dr. Tasha Dodson Glucose Ql (U) Negative Normal NEGATIVE [facility] Comment on above: Performed By: #### T SH, BMP #### [facility] [address] [place] [address] Dr. Tasha Dodson Hemoglobin Ql (U) Negative Normal NEGATIVE [facility] Comment on above: Performed By: #### T SH, BMP #### [facility] [address] [place] [address] Dr. Tasha Dodson Ketones Ql (U) Negative Normal NEGATIVE [facility] Comment on above: Performed By: #### T SH, BMP #### [facility] [address] [place] [address] Dr. Tasha Dodson LEUKOCYTES Negative Normal NEGATIVE [facility] Comment on above: Performed By: #### T SH, BMP #### [facility] [address] [place] [address] Dr. Tasha Dodson Nitrite Ql (U) Negative Normal NEGATIVE [facility] Comment on above: Performed By: #### T SH, BMP #### [facility] [address] [place] [address] Dr. Tasha Dodson pH (U) 7.0 [pH] Normal 5-9 [facility] Comment on above: Performed By: #### T SH, BMP #### [facility] [address] [place] [address] Dr. Tasha Dodson SPEC GRAVITY 1.010 Normal 1.005-<=1.0 25 [facility] Comment on above: Performed By: #### T SH, BMP #### [facility] [address] [place] [address] Dr. Tasha Dodson UA PROTEIN Negative Normal NEGATIVE/ TRACE [facility] Comment on above: Performed By: #### T SH, BMP #### [facility] [address] [place] [address] Dr. Tasha Dodson UR MICRO IND NOT INDICATED Normal [facility] Comment on above: Performed By: #### T SH, BMP #### [facility] [address] [place] [address] Dr. Tasha Dodson Urobilinogen Qn (U) 0.2 {Juan'U}/dL Normal 0.2 - 1. 0 [facility] Comment on above: Performed By: #### T JESI, BMP #### [facility] [address] [place] [address] Dr. Tasha Dodson ECHOCARDIO M/2D COMPLETEon 0 04-18-2022 ECHOCARDIO M/2D COMPLETE Patient: HIRAM MADRID Exam Date: 04/18/2022 : 1935 Gender:F Ordering : DR VALERIE DARDEN M.D. Admission #: [id number] Family : DR ADDY DANIELS . Order #: [id number] CLICK HERE TO VIEW EXAM ECHOCARDIOGRAM REPORT [...] Barragan M.D. on 04/19/2022 at 18:55 Normal [facility] Office Visiton 04-04-2022 Follow-up visit [id number] Hiram Madrid 1935 F Date Provider Department Center 04/04/2022 Yazmin-VALERIE DARDEN [facility] Family History Problem Relation Age of Onset Hypertension Mother Lupus Mother Coronary artery disease Mother Heart attack Mother Hypertension Father Aneurysm Father Coronary artery disease Father Hypertension Sister Lupus Sister Family Status - Relation Status Age at Mother Father Sister Level of Service:61320 SD OFFICE/OUTPATIENT ESTABLISHED MOD MDM 30-39 MIN Reason for Visit and Comments: Hyperlipidemia [182] Hypertension [535217] carotid artery stenosis [Other] 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 CBC AUTO DIFFon 01-04-2022 BASO # 0.1 103/ul Normal 0.0-0.1 [facility] Comment on above: Performed By: #### C BC #### [facility] [address] [address] [address] Tasha Dodson Basophils/100 WBC (Bld) 0.6 % Normal 0.2-2.0 [facility] Comment on above: Performed By: #### C BC #### [facility] [address] [address] [address] Tasha Dodson EO # 0.1 103/ul Normal 0.0-0.7 [facility] Comment on above: Performed By: #### C BC #### [facility] [address] [place] [address] Dr. Tasha Dodson Eosinophils/100 WBC (Bld) 0.9 % Normal 0.9-7.0 [facility] Comment on above: Performed By: #### C BC #### [facility] [address] [place] [address] Dr. Tasha Dodson Erythrocyte distribution width (RBC) [Ratio] 13.0 % Normal 11.0-15.0 [facility] Comment on above: Performed By: #### C BC #### [facility] [address] [place] [address] Dr. Tasha Dodson Hematocrit (Bld) [Volume fraction] 38.5 % Normal 36.0-48.0 [facility] Comment on above: Performed By: #### C BC #### [facility] [address] [place] [address] Dr. Tasha Dodson Hemoglobin (Bld) [Mass/Vol] 13.4 g/dL Normal 12.0-16.0 [facility] Comment on above: Performed By: #### C BC #### [facility] [address] [place] [address] Dr. Tasha Dodson IG # 0.07 10e3/ul Critically high 0.00-0.03 [facility] Comment on above: Performed By: #### C BC #### [facility] [address] [place] [address] Dr. Tasha Dodson IG % 0.5 % Normal 0.0-0.5 [facility] Comment on above: Performed By: #### C BC #### [facility] [address] [place] [address] Dr. Tasha Dosdon LYMPH # 2.8 103/ul Normal 1.2-3.8 [facility] Comment on above: Performed By: #### C BC #### [facility] [address] [place] [address] Dr. Tasha Dodson Lymphocytes/100 WBC (Bld) 20.5 % Normal 20.5-60.0 [facility] Comment on above: Performed By: #### C BC #### [facility] [address] [place] [address] Dr. Tasha Dodson MANUAL DIFF REQ NO Normal [facility] Comment on above: Performed By: #### C BC #### [facility] [address] [place] [address] Dr. Tasha Dodson MCH (RBC) [Entitic mass] 30.7 pg Normal 26.7-34.0 [facility] Comment on above: Performed By: #### C BC #### [facility] [address] [place] [address] Dr. Tasha Dodson MCHC (RBC) [Mass/Vol] 34.8 g/dL Normal 29.9-35.2 [facility] Comment on above: Performed By: #### C BC #### [facility] [address] [place] [address] Dr. Tasha Dodson MCV (RBC) [Entitic vol] 88.3 fL Normal 81.0-99.0 [facility] Comment on above: Performed By: #### C BC #### [facility] [address] [place] [address] Dr. Tasha Dodson MONO # 1.0 103/ul Critically high 0.3-0.8 [facility] Comment on above: Performed By: #### C BC #### [facility] [address] [place] [address] Dr. Tasha Dodson Monocytes/100 WBC (Bld) 7.4 % Normal 1.7-12.0 [facility] Comment on above: Performed By: #### C BC #### [facility] [address] [place] [address] Dr. Tasha Dodson NEUT # 9.5 103/ul Critically high 1.4-6.5 [facility] Comment on above: Performed By: #### C BC #### [facility] [address] [place] [address] Dr. Tasha Dodson Neutrophils/100 WBC (Bld) 70.1 % Normal 43.0-75.0 [facility] Comment on above: Performed By: #### C BC #### [facility] [address] [address] [address] Tasha Dodson Platelet mean volume (Bld) [Entitic vol] 8.0 fL Critically low 9.5-13.5 [facility] Comment on above: Performed By: #### C BC #### [facility] [address] [place] [address] Dr. Tasha Dodson PLT 492 103/ul Critically high 150-450 [facility] Comment on above: Performed By: #### C BC #### [facility] [address] [place] [address] Dr. Tasha Dodson RBC 4.36 106/ul Normal 4.20-5.40 [facility] Comment on above: Performed By: #### C BC #### [facility] [address] [place] [address] Dr. Tasha Dodson WBC 13.5 103/ul Critically high 4.0-11.0 [facility] Comment on above: Performed By: #### C BC #### [facility] [address] [place] [address] Dr. Tasha Dodson PROF 14(COMP METB)on 01-04- 022 Albumin [Mass/Vol] 3.8 g/dL Normal 3.4-5.0 [facility] Comment on above: Performed By: #### T SH, BMP #### [facility] [address] [place] [address] Dr. Tasha Dodson Albumin/Globulin [Mass ratio] 0.9 {ratio} Normal [facility] Comment on above: Performed By: #### T SH, BMP #### [facility] [address] [place] [address] Dr. Tasha Dodson ALP [Catalytic activity/Vol] 60 U/L Normal 46-116 [facility] Comment on above: Performed By: #### T SH, BMP #### [facility] [address] [place] [address] Dr. Tasha Dodson ALT [Catalytic activity/Vol] 26 U/L Normal 14-59 [facility] Comment on above: Performed By: #### T SH, BMP #### [facility] [address] [address] [address] Tasha Dodson Anion gap [Moles/Vol] 8.4 mmol/L Normal [facility] Comment on above: Performed By: #### T SH, BMP #### [facility] [address] [address] [address] Tasha Dodson AST [Catalytic activity/Vol] 19 U/L Normal 15-37 [facility] Comment on above: Performed By: #### T SH, BMP #### [facility] [address] [place] [address] Dr. Tasha Dodson Bilirubin [Mass/Vol] 0.4 mg/dL Normal 0.2-1.0 [facility] Comment on above: Performed By: #### T SH, BMP #### [facility] [address] [place] [address] Dr. Tasha Dodson Calcium [Mass/Vol] 10.1 mg/dL Normal 8.5-10.1 [facility] Comment on above: Performed By: #### T SH, BMP #### [facility] [address] [place] [address] Dr. Tasha Dodson Chloride [Moles/Vol] 92 mmol/L Critically low 98-107 [facility] Comment on above: Performed By: #### T SH, BMP #### [facility] [address] [place] [address] Dr. Tasha Dodson CO2 [Moles/Vol] 33.8 mmol/L Critically high 21.0-32.0 [facility] Comment on above: Performed By: #### T SH, BMP #### [facility] [address] [place] [address] Dr. Tasha Dodson Creatinine [Mass/Vol] 0.67 mg/dL Normal 0.55-1.02 [facility] Comment on above: Performed By: #### T SH, BMP #### [facility] [address] [place] [address] Dr. Tasha Dodson EGFR-AF PANAMANIAN >60 Normal >=60 [facility] Comment on above: Performed By: #### T SH, BMP #### [facility] [address] [address] [address] Tasha Dodson EGFR-NON AF PANAMANIAN >60 Normal >=60 [facility] Comment on above: Performed By: #### T SH, BMP #### [facility] [address] [address] [address] Tasha Dodson Globulin (S) [Mass/Vol] 4.1 g/dL Normal [facility] Comment on above: Performed By: #### T SH, BMP #### [facility] [address] [place] [address] Dr. Tasha Dodson Glucose [Mass/Vol] 106 mg/dL Normal 74-106 [facility] Comment on above: Performed By: #### T SH, BMP #### [facility] [address] [place] [address] Dr. Tasha Dodson Potassium [Moles/Vol] 3.2 mmol/L Critically low 3.5-5.1 [facility] Comment on above: Performed By: #### T JESI, BMP #### [facility] [address] [place] [address] Dr. Tasha Dodson Protein [Mass/Vol] 7.9 g/dL Normal 6.4-8.2 [facility] Comment on above: Performed By: #### T JESI, BMP #### [facility] [address] [place] [address] Dr. Tasha Dodson Sodium [Moles/Vol] 131 mmol/L Critically low 136-145 [facility] Comment on above: Performed By: #### T SH, BMP #### [facility] [address] [place] [address] Dr. Tasha Dodson Urea nitrogen [Mass/Vol] 10.0 mg/dL Normal 7.0-18.0 [facility] Comment on above: Performed By: #### T SH, BMP #### [facility] [address] [place] [address] Dr. Tasha Dodson Urea nitrogen/Creatinine [Mass ratio] 14.9 mg/mg Normal [facility] Comment on above: Performed By: #### T JESI, BMP #### [facility] [address] [place] [address] Dr. Tasha Dodson CBC AUTO DIFFon 12-29-2021 BASO # 0.1 103/ul Normal 0.0-0.1 [facility] Comment on above: Performed By: #### C BC #### [facility] [address] [place] [address] Dr. Tasha Dodson Basophils/100 WBC (Bld) 0.5 % Normal 0.2-2.0 [facility] Comment on above: Performed By: #### C BC #### [facility] [address] [place] [address] Dr. Tasha Dodson EO # 0.1 103/ul Normal 0.0-0.7 [facility] Comment on above: Performed By: #### C BC #### [facility] [address] [place] [address] Dr. Tasha Dodson Eosinophils/100 WBC (Bld) 0.4 % Critically low 0.9-7.0 [facility] Comment on above: Performed By: #### C BC #### [facility] [address] [place] [address] Dr. Tasha Dodson Erythrocyte distribution width (RBC) [Ratio] 13.0 % Normal 11.0-15.0 [facility] Comment on above: Performed By: #### C BC #### [facility] [address] [place] [address] Dr. Tasha Dodson Hematocrit (Bld) [Volume fraction] 34.0 % Critically low 36.0-48.0 [facility] Comment on above: Performed By: #### C BC #### [facility] [address] [place] [address] Dr. Tasha Dodson Hemoglobin (Bld) [Mass/Vol] 12.0 g/dL Normal 12.0-16.0 [facility] Comment on above: Performed By: #### C BC #### [facility] [address] [place] [address] Dr. Tasha Dodson IG # 0.06 10e3/ul Critically high 0.00-0.03 [facility] Comment on above: Performed By: #### C BC #### [facility] [address] [address] [address] Tasha Dodson IG % 0.4 % Normal 0.0-0.5 [facility] Comment on above: Performed By: #### C BC #### [facility] [address] [place] [address] Dr. Tasha Dodson LYMPH # 2.5 103/ul Normal 1.2-3.8 [facility] Comment on above: Performed By: #### C BC #### [facility] [address] [place] [address] Dr. Tasha Dodson Lymphocytes/100 WBC (Bld) 17.4 % Critically low 20.5-60.0 [facility] Comment on above: Performed By: #### C BC #### [facility] [address] [place] [address] Dr. Tasha Dodson MANUAL DIFF REQ NO Normal [facility] Comment on above: Performed By: #### C BC #### [facility] [address] [place] [address] Dr. Tasha Dodson MCH (RBC) [Entitic mass] 31.0 pg Normal 26.7-34.0 [facility] Comment on above: Performed By: #### C BC #### [facility] [address] [place] [address] Dr. Tasha Dodson MCHC (RBC) [Mass/Vol] 35.3 g/dL Critically high 29.9-35.2 [facility] Comment on above: Performed By: #### C BC #### [facility] [address] [place] [address] Dr. Tasha Dodson MCV (RBC) [Entitic vol] 87.9 fL Normal 81.0-99.0 [facility] Comment on above: Performed By: #### C BC #### [facility] [address] [place] [address] Dr. Tasha Dodson MONO # 1.0 103/ul Critically high 0.3-0.8 [facility] Comment on above: Performed By: #### C BC #### [facility] [address] [address] [address] Tasha Dodson Monocytes/100 WBC (Bld) 6.9 % Normal 1.7-12.0 [facility] Comment on above: Performed By: #### C BC #### [facility] [address] [address] [address] Tasha Dodson NEUT # 10.8 103/ul Critically high 1.4-6.5 [facility] Comment on above: Performed By: #### C BC #### [facility] [address] [address] [address] Tasha Dodson Neutrophils/100 WBC (Bld) 74.4 % Normal 43.0-75.0 [facility] Comment on above: Performed By: #### C BC #### [facility] [address] [place] [address] Dr. Tasha Dodson Platelet mean volume (Bld) [Entitic vol] 8.4 fL Critically low 9.5-13.5 [facility] Comment on above: Performed By: #### C BC #### [facility] [address] [place] [address] Dr. Tasha Dodson PLT 370 103/ul Normal 150-450 [facility] Comment on above: Performed By: #### C BC #### [facility] [address] [place] [address] Dr. Tasha Dodson RBC 3.87 106/ul Critically low 4.20-5.40 [facility] Comment on above: Performed By: #### C BC #### [facility] [address] [place] [address] Dr. Tasha Dodson WBC 14.5 103/ul Critically high 4.0-11.0 [facility] Comment on above: Performed By: #### C BC #### [facility] [address] [place] [address] Dr. Tasha Dodson PROF 14(COMP METB)on 022 Albumin [Mass/Vol] 2.8 g/dL Critically low 3.4-5.0 [facility] Comment on above: Performed By: #### T SH, BMP #### [facility] [address] [place] [address] Dr. Tasha Dodson Albumin/Globulin [Mass ratio] 0.9 {ratio} Normal [facility] Comment on above: Performed By: #### T SH, BMP #### [facility] [address] [place] [address] Dr. Tasha Dodson ALP [Catalytic activity/Vol] 51 U/L Normal 46-116 [facility] Comment on above: Performed By: #### T SH, BMP #### [facility] [address] [address] [address] Tasha Dodson ALT [Catalytic activity/Vol] 15 U/L Normal 14-59 [facility] Comment on above: Performed By: #### T SH, BMP #### [facility] [address] [place] [address] Dr. Tasha Dodson Anion gap [Moles/Vol] 9.7 mmol/L Normal [facility] Comment on above: Performed By: #### T SH, BMP #### [facility] [address] [place] [address] Dr. Tasha Dodson AST [Catalytic activity/Vol] 15 U/L Normal 15-37 [facility] Comment on above: Performed By: #### T SH, BMP #### [facility] [address] [place] [address] Dr. Tasha Dodson Bilirubin [Mass/Vol] 0.4 mg/dL Normal 0.2-1.0 [facility] Comment on above: Performed By: #### T SH, BMP #### [facility] [address] [place] [address] Dr. Tasha Dodson Calcium [Mass/Vol] 8.6 mg/dL Normal 8.5-10.1 [facility] Comment on above: Performed By: #### T SH, BMP #### [facility] [address] [place] [address] Dr. Tasha Dodson Chloride [Moles/Vol] 97 mmol/L Critically low 98-107 [facility] Comment on above: Performed By: #### T SH, BMP #### [facility] [address] [address] [address] Tasha Dodson CO2 [Moles/Vol] 25.8 mmol/L Normal 21.0-32.0 [facility] Comment on above: Performed By: #### T SH, BMP #### [facility] [address] [address] [address] Tasha Dodson Creatinine [Mass/Vol] 0.52 mg/dL Critically low 0.55-1.02 [facility] Comment on above: Performed By: #### T SH, BMP #### [facility] [address] [place] [address] Dr. Tasha Dodson EGFR-AF PANAMANIAN >60 Normal >=60 [facility] Comment on above: Performed By: #### T SH, BMP #### [facility] [address] [place] [address] Dr. Tasha Dodson EGFR-NON AF PANAMANIAN >60 Normal >=60 [facility] Comment on above: Performed By: #### T SH, BMP #### [facility] [address] [place] [address] Dr. Tasha Dodson Globulin (S) [Mass/Vol] 3.2 g/dL Normal [facility] Comment on above: Performed By: #### T SH, BMP #### [facility] [address] [place] [address] Dr. Tasha Dodson Glucose [Mass/Vol] 117 mg/dL Critically high 74-106 [facility] Comment on above: Performed By: #### T SH, BMP #### [facility] [address] [place] [address] Dr. Tasha Dodson Potassium [Moles/Vol] 3.5 mmol/L Normal 3.5-5.1 [facility] Comment on above: Performed By: #### T SH, BMP #### [facility] [address] [place] [address] Dr. Tasha Dodson Protein [Mass/Vol] 6.0 g/dL Critically low 6.4-8.2 [facility] Comment on above: Performed By: #### T SH, BMP #### [facility] [address] [place] [address] Dr. Tasha Dodson Sodium [Moles/Vol] 129 mmol/L Critically low 136-145 [facility] Comment on above: Performed By: #### T JESI, BMP #### [facility] [address] [place] [address] Dr. Tasha Dodson Urea nitrogen [Mass/Vol] 4.0 mg/dL Critically low 7.0-18.0 [facility] Comment on above: Performed By: #### T JESI, BMP #### [facility] [address] [place] [address] Dr. Tasha Dodson Urea nitrogen/Creatinine [Mass ratio] 7.7 mg/mg Normal [facility] Comment on above: Performed By: #### T JESI, BMP #### [facility] [address] [place] [address] Dr. Tasha Dodson CBC AUTO DIFFon 12-28-2021 BASO # 0.1 103/ul Normal 0.0-0.1 [facility] Comment on above: Performed By: #### C BC #### [facility] [address] [place] [address] Dr. Tasha Dodson Basophils/100 WBC (Bld) 0.4 % Normal 0.2-2.0 [facility] Comment on above: Performed By: #### C BC #### [facility] [facility] [address] [place] [address] Dr. Tasha Dodson EO # 0.1 103/ul Normal 0.0-0.7 [facility] Comment on above: Performed By: #### C BC #### [facility] [address] [place] [address] Dr. Tasha Dodson Eosinophils/100 WBC (Bld) 0.4 % Critically low 0.9-7.0 [facility] Comment on above: Performed By: #### C BC #### [facility] [address] [place] [address] Dr. Tasha Dodson Erythrocyte distribution width (RBC) [Ratio] 12.9 % Normal 11.0-15.0 [facility] Comment on above: Performed By: #### C BC #### [facility] [address] [place] [address] Dr. Tasha Dodson Hematocrit (Bld) [Volume fraction] 34.2 % Critically low 36.0-48.0 [facility] Comment on above: Performed By: #### C BC #### [facility] [address] [place] [address] Dr. Tasha Dodson Hemoglobin (Bld) [Mass/Vol] 12.4 g/dL Normal 12.0-16.0 [facility] Comment on above: Performed By: #### C BC #### [facility] [address] [place] [address] Dr. Tasha Dodson IG # 0.09 10e3/ul Critically high 0.00-0.03 [facility] Comment on above: Performed By: #### C BC #### [facility] [address] [place] [address] Dr. Tasha Dodson IG % 0.6 % Critically high 0.0-0.5 [facility] Comment on above: Performed By: #### C BC #### [facility] [address] [place] [address] Dr. Tasha Dodson LYMPH # 2.2 103/ul Normal 1.2-3.8 [facility] Comment on above: Performed By: #### C BC #### [facility] [address] [place] [address] Dr. Tasha Dodson Lymphocytes/100 WBC (Bld) 13.6 % Critically low 20.5-60.0 [facility] Comment on above: Performed By: #### C BC #### [facility] [address] [place] [address] Dr. Tasha Dodson MANUAL DIFF REQ NO Normal [facility] Comment on above: Performed By: #### C BC #### [facility] [address] [place] [address] Dr. Tasha Dodson MCH (RBC) [Entitic mass] 31.2 pg Normal 26.7-34.0 [facility] Comment on above: Performed By: #### C BC #### [facility] [address] [address] [address] Tasha Dodson MCHC (RBC) [Mass/Vol] 36.3 g/dL Critically high 29.9-35.2 [facility] Comment on above: Performed By: #### C BC #### [facility] [address] [address] [address] Tasha Dodson MCV (RBC) [Entitic vol] 85.9 fL Normal 81.0-99.0 [facility] Comment on above: Performed By: #### C BC #### [facility] [address] [address] [address] Tasha Dodson MONO # 1.3 103/ul Critically high 0.3-0.8 [facility] Comment on above: Performed By: #### C BC #### [facility] [address] [place] [address] Dr. Tasha Dodson Monocytes/100 WBC (Bld) 7.8 % Normal 1.7-12.0 [facility] Comment on above: Performed By: #### C BC #### [facility] [address] [address] [address] Tasha Dodson NEUT # 12.4 103/ul Critically high 1.4-6.5 [facility] Comment on above: Performed By: #### C BC #### [facility] [address] [place] [address] Dr. Tasha Dodson Neutrophils/100 WBC (Bld) 77.2 % Critically high 43.0-75.0 [facility] Comment on above: Performed By: #### C BC #### [facility] [address] [address] [address] Tasha Dodson Platelet mean volume (Bld) [Entitic vol] 8.6 fL Critically low 9.5-13.5 [facility] Comment on above: Performed By: #### C BC #### [facility] [address] [place] [address] Dr. Tasha Dodson PLT 385 103/ul Normal 150-450 [facility] Comment on above: Performed By: #### C BC #### [facility] [address] [address] [address] Tasha Dodson RBC 3.98 106/ul Critically low 4.20-5.40 [facility] Comment on above: Performed By: #### C BC #### [facility] [address] [address] [address] Tasha Dodson WBC 16.1 103/ul Critically high 4.0-11.0 [facility] Comment on above: Performed By: #### C BC #### [facility] [address] [place] [address] Dr. Tasha Dodson PROF 14(COMP METB)on 022 Albumin [Mass/Vol] 3.2 g/dL Critically low 3.4-5.0 [facility] Comment on above: Performed By: #### T SH, BMP #### [facility] [address] [place] [address] Dr. Tasha Dodson Albumin/Globulin [Mass ratio] 1.0 {ratio} Normal [facility] Comment on above: Performed By: #### T SH, BMP #### [facility] [address] [place] [address] Dr. Tasha Dodson ALP [Catalytic activity/Vol] 51 U/L Normal 46-116 [facility] Comment on above: Performed By: #### T SH, BMP #### [facility] [address] [place] [address] Dr. Tasha Dodson ALT [Catalytic activity/Vol] 17 U/L Normal 14-59 [facility] Comment on above: Performed By: #### T SH, BMP #### [facility] [address] [place] [address] Dr. Tasha Dodson Anion gap [Moles/Vol] 10.5 mmol/L Normal [facility] Comment on above: Performed By: #### T SH, BMP #### [facility] [address] [place] [address] Dr. Tasha Dodson AST [Catalytic activity/Vol] 18 U/L Normal 15-37 [facility] Comment on above: Performed By: #### T SH, BMP #### [facility] [address] [address] [address] Tasha Dodson Bilirubin [Mass/Vol] 0.4 mg/dL Normal 0.2-1.0 [facility] Comment on above: Performed By: #### T SH, BMP #### [facility] [address] [place] [address] Dr. Tasha Dodson Calcium [Mass/Vol] 8.3 mg/dL Critically low 8.5-10.1 [facility] Comment on above: Performed By: #### T SH, BMP #### [facility] [address] [place] [address] Dr. Tasha Dodson Chloride [Moles/Vol] 96 mmol/L Critically low 98-107 [facility] Comment on above: Performed By: #### T SH, BMP #### [facility] [address] [place] [address] Dr. Tasha Dodson CO2 [Moles/Vol] 24.5 mmol/L Normal 21.0-32.0 [facility] Comment on above: Performed By: #### T SH, BMP #### [facility] [address] [place] [address] Dr. Tasha Dodson Creatinine [Mass/Vol] 0.54 mg/dL Critically low 0.55-1.02 [facility] Comment on above: Performed By: #### T SH, BMP #### [facility] [address] [place] [address] Dr. Tasha Dodson EGFR-AF PANAMANIAN >60 Normal >=60 [facility] Comment on above: Performed By: #### T SH, BMP #### [facility] [address] [place] [address] Dr. Tasha Dodson EGFR-NON AF PANAMANIAN >60 Normal >=60 [facility] Comment on above: Performed By: #### T SH, BMP #### [facility] [address] [place] [address] Dr. Tasha Dodson Globulin (S) [Mass/Vol] 3.1 g/dL Normal [facility] Comment on above: Performed By: #### T SH, BMP #### [facility] [address] [place] [address] Dr. Tasha Dodson Glucose [Mass/Vol] 123 mg/dL Critically high 74-106 [facility] Comment on above: Performed By: #### T , BMP #### [facility] [address] [place] [address] Dr. Tasha Dodson Potassium [Moles/Vol] 3.0 mmol/L Critically low 3.5-5.1 [facility] Comment on above: Performed By: #### T , BMP #### [facility] [address] [place] [address] Dr. Tasha Dodson Protein [Mass/Vol] 6.3 g/dL Critically low 6.4-8.2 [facility] Comment on above: Performed By: #### T , BMP #### [facility] [address] [place] [address] Dr. Tasha Dodson Sodium [Moles/Vol] 128 mmol/L Critically low 136-145 [facility] Comment on above: Performed By: #### T , BMP #### [facility] [address] [place] [address] Dr. Tasha Dodson Urea nitrogen [Mass/Vol] 5.0 mg/dL Critically low 7.0-18.0 [facility] Comment on above: Performed By: #### T , BMP #### [facility] [address] [place] [address] Dr. Tasha Dodson Urea nitrogen/Creatinine [Mass ratio] 9.3 mg/mg Normal [facility] Comment on above: Performed By: #### T , BMP #### [facility] [address] [place] [address] Dr. Tasha Dodson SODIUM RANDOM URINEon 2021 Sodium (U) [Moles/Vol] 135 mmol/L Critically high 30-90 [facility] Comment on above: Performed By: #### C BC #### [facility] [address] [place] [address] Dr. Tasha Dodson CBC AUTO DIFFon 12-27-2021 BASO # 0.0 103/ul Normal 0.0-0.1 [facility] Comment on above: Performed By: #### C BC #### [facility] [address] [place] [address] Dr. Tasha Dodson Basophils/100 WBC (Bld) 0.2 % Normal 0.2-2.0 [facility] Comment on above: Performed By: #### C BC #### [facility] [address] [place] [address] Dr. Tasha Dodson EO # 0.3 103/ul Normal 0.0-0.7 [facility] Comment on above: Performed By: #### C BC #### [facility] [address] [place] [address] Dr. Tasha Dodson Eosinophils/100 WBC (Bld) 2.3 % Normal 0.9-7.0 [facility] Comment on above: Performed By: #### C BC #### [facility] [address] [place] [address] Dr. Tasha Dodson Erythrocyte distribution width (RBC) [Ratio] 12.4 % Normal 11.0-15.0 [facility] Comment on above: Performed By: #### C BC #### [facility] [address] [place] [address] Dr. Tasha Dodson Hematocrit (Bld) [Volume fraction] 35.4 % Critically low 36.0-48.0 [facility] Comment on above: Performed By: #### C BC #### [facility] [address] [place] [address] Dr. Tasha Dodson Hemoglobin (Bld) [Mass/Vol] 12.9 g/dL Normal 12.0-16.0 [facility] Comment on above: Performed By: #### C BC #### [facility] [address] [place] [address] Dr. Tasha Dodson IG # 0.06 10e3/ul Critically high 0.00-0.03 [facility] Comment on above: Performed By: #### C BC #### [facility] [address] [place] [address] Dr. Tasha Dodson IG % 0.5 % Normal 0.0-0.5 [facility] Comment on above: Performed By: #### C BC #### [facility] [address] [address] [address] Tasha Dodson LYMPH # 2.0 103/ul Normal 1.2-3.8 [facility] Comment on above: Performed By: #### C BC #### [facility] [address] [address] [address] Tasha Dodosn Lymphocytes/100 WBC (Bld) 15.7 % Critically low 20.5-60.0 [facility] Comment on above: Performed By: #### C BC #### [facility] [address] [place] [address] Dr. Tasha Dodson MANUAL DIFF REQ NO Normal [facility] Comment on above: Performed By: #### C BC #### [facility] [address] [place] [address] Dr. Tasha Dodson MCH (RBC) [Entitic mass] 31.0 pg Normal 26.7-34.0 [facility] Comment on above: Performed By: #### C BC #### [facility] [address] [place] [address] Dr. Tasha Dodson MCHC (RBC) [Mass/Vol] 36.4 g/dL Critically high 29.9-35.2 [facility] Comment on above: Performed By: #### C BC #### [facility] [address] [place] [address] Dr. Tasha Dodson MCV (RBC) [Entitic vol] 85.1 fL Normal 81.0-99.0 [facility] Comment on above: Performed By: #### C BC #### [facility] [address] [place] [address] Dr. Tasha Dodson MONO # 1.1 103/ul Critically high 0.3-0.8 [facility] Comment on above: Performed By: #### C BC #### [facility] [address] [place] [address] Dr. Tasha Dodson Monocytes/100 WBC (Bld) 8.3 % Normal 1.7-12.0 [facility] Comment on above: Performed By: #### C BC #### [facility] [address] [address] [address] Tasha Dodson NEUT # 9.5 103/ul Critically high 1.4-6.5 [facility] Comment on above: Performed By: #### C BC #### [facility] [address] [id number] [address] Tasha Dodson Neutrophils/100 WBC (Bld) 73.0 % Normal 43.0-75.0 [facility] Comment on above: Performed By: #### C BC #### [facility] [address] [address] [address] Tasha Dodson Platelet mean volume (Bld) [Entitic vol] 8.3 fL Critically low 9.5-13.5 [facility] Comment on above: Performed By: #### C BC #### [facility] [address] [address] [address] Tasha Dodson PLT 408 103/ul Normal 150-450 [facility] Comment on above: Performed By: #### C BC #### [facility] [address] [address] [address] Tasha Dodson RBC 4.16 106/ul Critically low 4.20-5.40 [facility] Comment on above: Performed By: #### C BC #### [facility] [address] [id number] [address] Tasha Dodson WBC 13.0 103/ul Critically high 4.0-11.0 [facility] Comment on above: Performed By: #### C BC #### [facility] [address] [id number] [address] Tasha Dodson CULTURE SPUTUMon 12-27-2021 CULTURE SPUTUM Culture Observations : NORMAL RESPIRATORY AMADOU. Normal [facility] Comment on above: Performed By: #### C BC #### [facility] [address] [address] [address] Tasha Dodson PROF 14(COMP METB)on 022 Albumin [Mass/Vol] 3.4 g/dL Normal 3.4-5.0 [facility] Comment on above: Performed By: #### C MADM, LIPA, BNP, CMP #### [facility] [address] [place] [address] Dr. Tasha Dodson Albumin/Globulin [Mass ratio] 1.0 {ratio} Normal [facility] Comment on above: Performed By: #### C MADM, LIPA, BNP, CMP #### [facility] [address] [place] [address] Dr. Tasha Dodson ALP [Catalytic activity/Vol] 54 U/L Normal 46-116 [facility] Comment on above: Performed By: #### C MADM, LIPA, BNP, CMP #### [facility] [address] [place] [address] Dr. Tasha Dodson ALT [Catalytic activity/Vol] 20 U/L Normal 14-59 [facility] Comment on above: Performed By: #### C MADM, LIPA, BNP, CMP #### [facility] [address] [place] [address] Dr. Tasha Dodson Anion gap [Moles/Vol] 10.8 mmol/L Normal [facility] Comment on above: Performed By: #### C MADM, LIPA, BNP, CMP #### [facility] [address] [place] [address] Dr. Tasha Dodson AST [Catalytic activity/Vol] 19 U/L Normal 15-37 [facility] Comment on above: Performed By: #### C MADM, LIPA, BNP, CMP #### [facility] [address] [place] [address] Dr. Tsaha Dodson Bilirubin [Mass/Vol] 0.5 mg/dL Normal 0.2-1.0 [facility] Comment on above: Performed By: #### C MADM, LIPA, BNP, CMP #### [facility] [address] [place] [address] Dr. Tasha Dodson Calcium [Mass/Vol] 8.3 mg/dL Critically low 8.5-10.1 [facility] Comment on above: Performed By: #### C MADM, LIPA, BNP, CMP #### [facility] [address] [address] [address] Tasha Dodson Chloride [Moles/Vol] 89 mmol/L Critically low 98-107 [facility] Comment on above: Performed By: #### C MADM, LIPA, BNP, CMP #### [facility] [address] [place] [address] Dr. Tasha Dodson CO2 [Moles/Vol] 27.0 mmol/L Normal 21.0-32.0 [facility] Comment on above: Performed By: #### C MADM, LIPA, BNP, CMP #### [facility] [address] [address] [address] Tasha Dodson Creatinine [Mass/Vol] 0.69 mg/dL Normal 0.55-1.02 [facility] Comment on above: Performed By: #### C MADM, LIPA, BNP, CMP #### [facility] [address] [place] [address] Dr. Tasha Dodson EGFR-AF PANAMANIAN >60 Normal >=60 [facility] Comment on above: Performed By: #### C MADM, LIPA, BNP, CMP #### [facility] [address] [place] [address] Dr. Tasha Dodson EGFR-NON AF PANAMANIAN >60 Normal >=60 [facility] Comment on above: Performed By: #### C MADM, LIPA, BNP, CMP #### [facility] [address] [address] [address] Tasha Dodson Globulin (S) [Mass/Vol] 3.3 g/dL Normal [facility] Comment on above: Performed By: #### C MADM, LIPA, BNP, CMP #### [facility] [address] [place] [address] Dr. Tasha Dodson Glucose [Mass/Vol] 115 mg/dL Critically high 74-106 [facility] Comment on above: Performed By: #### C MADM, LIPA, BNP, CMP #### [facility] [address] [place] [address] Dr. Tasha Dodson Potassium [Moles/Vol] 2.7 mmol/L Critically low 3.5-5.1 [facility] Comment on above: Result Comment: Test Repeated. Critical Value Verified Performed By: #### C MADM, LIPA, BNP, CMP #### [facility] [address] [address] [address] Tasha Dodson Protein [Mass/Vol] 6.7 g/dL Normal 6.4-8.2 [facility] Comment on above: Performed By: #### C MADM, LIPA, BNP, CMP #### [facility] [address] [address] [address] Tasha Dodson Sodium [Moles/Vol] 123 mmol/L Critically low 136-145 [facility] Comment on above: Result Comment: Test Repeated. Critical Value Verified Performed By: #### C MADM, LIPA, BNP, CMP #### [facility] [address] [address] [address] Tasha Dodson Urea nitrogen [Mass/Vol] 6.0 mg/dL Critically low 7.0-18.0 [facility] Comment on above: Performed By: #### C MADM, LIPA, BNP, CMP #### [facility] [address] [place] [address] Dr. Tasha Dodson Urea nitrogen/Creatinine [Mass ratio] 8.7 mg/mg Normal [facility] Comment on above: Performed By: #### C MADM, LIPA, BNP, CMP #### [facility] [address] [address] [address] Tasha Dodson SPUTUM GRAM STAINon 12-28-19 COMMENTS Normal [facility] Comment on above: Performed By: #### T SH, BMP #### [facility] [address] [address] [address] Tasha Dodson DIPHTHEROIDS Normal [facility] Comment on above: Performed By: #### T SH, BMP #### [facility] [address] [place] [address] Dr. Tasha Dodson EPITHELIALS <25 Normal [facility] Comment on above: Performed By: #### T SH, BMP #### [facility] [address] [address] [address] Tasha Dodson FUNGAL ELEMENTS Normal [facility] Comment on above: Performed By: #### T SH, BMP #### [facility] [address] [address] [address] Tasha Dodson GRAM NEG BACILLI Normal [facility] Comment on above: Performed By: #### T SH, BMP #### [facility] [address] [address] [address] Tasha Dodson GRAM NEG DIPPLOCOCCI Normal [facility] Comment on above: Performed By: #### T SH, BMP #### [facility] [address] [address] [address] Tasha Dodson GRAM POS BACILLI Normal [facility] Comment on above: Performed By: #### T SH, BMP #### [facility] [address] [place] [address] Dr. Tasha Dodson GRAM POSITIVE COCCI MODERATE Normal [facility] Comment on above: Performed By: #### T SH, BMP #### [facility] [address] [place] [address] Dr. Tasha Dodson WBC (Bld) [#/Vol] 10*3/uL Normal [facility] Comment on above: Performed By: #### T SH, BMP #### [facility] [address] [place] [address] Dr. Tasha Dodson BNPon 12-26-2021 Natriuretic peptide B (Bld) [Mass/Vol] 148.0 pg/mL Normal <=1,800.0 [facility] Comment on above: Performed By: #### C MADM, LIPA, BNP, CMP #### [facility] [address] [place] [address] Dr. Tasha Dodson CARDIAC ANGELO ADMITon 022 CK [Catalytic activity/Vol] 139 U/L Normal 26-192 [facility] Comment on above: Performed By: #### C MADM, LIPA, BNP, CMP #### [facility] [address] [place] [address] Dr. Tasha Dodson CK.MB [Mass/Vol] 2.43 ng/mL Normal <=3.60 [facility] Comment on above: Performed By: #### C MADM, LIPA, BNP, CMP #### [facility] [address] [address] [address] Tasha Dodson HSTROP 12.2 pg/mL Normal 4.0-51.3 [facility] Comment on above: Result Comment: CUT- OFF POINTS HAVE BEEN ESTABLISHED BASED ON THE FOURTH UNIVERSAL DEFINITIONS OF MYOCARDIAL INFARCTION. THE UPPER REFERENCE LIMIT (URL) OF TROPONIN, DEFINED THE 99TH PERCENTILE OF cTnI DISTRIBUTION IN A REFERENCE POPULATION, HAS BEEN CONFIRMED THE DECISION THRESHOLD FOR AR DIAGNOSIS. Performed By: #### C MADM, LIPA, BNP, CMP #### [facility] [address] [place] [address] Dr. Tasha Dodson ELIZABETH 110 ng/mL Critically high 9-82 The [facility] Comment on above: Performed By: #### C MADM, LIPA, BNP, CMP #### [facility] [address] [place] [address] Dr. Tasha Dodson CBC AUTO DIFFon 12-26-2021 BASO # 0.0 103/ul Normal 0.0-0.1 [facility] Comment on above: Performed By: #### C MADM, LIPA, BNP, CMP #### [facility] [address] [place] [address] Dr. Tasha Dodson Basophils/100 WBC (Bld) 0.3 % Normal 0.2-2.0 [facility] Comment on above: Performed By: #### C MADM, LIPA, BNP, CMP #### [facility] [address] [place] [address] Dr. Tasha Dodson EO # 0.1 103/ul Normal 0.0-0.7 [facility] Comment on above: Performed By: #### C MADM, LIPA, BNP, CMP #### [facility] [address] [place] [address] Dr. Tasha Dodson Eosinophils/100 WBC (Bld) 0.7 % Critically low 0.9-7.0 [facility] Comment on above: Performed By: #### C MADM, LIPA, BNP, CMP #### [facility] [address] [place] [address] Dr. Tasha Dodson Erythrocyte distribution width (RBC) [Ratio] 12.4 % Normal 11.0-15.0 [facility] Comment on above: Performed By: #### C MADM, LIPA, BNP, CMP #### [facility] [address] [place] [address] Dr. Tasha Dodson Hematocrit (Bld) [Volume fraction] 38.9 % Normal 36.0-48.0 [facility] Comment on above: Performed By: #### C MADM, LIPA, BNP, CMP #### [facility] [address] [place] [address] Dr. Tasha Dodson Hemoglobin (Bld) [Mass/Vol] 14.4 g/dL Normal 12.0-16.0 [facility] Comment on above: Performed By: #### C MADM, LIPA, BNP, CMP #### [facility] [address] [place] [address] Dr. Tasha Dodson IG # 0.08 10e3/ul Critically high 0.00-0.03 [facility] Comment on above: Performed By: #### C MADM, LIPA, BNP, CMP #### [facility] [address] [place] [address] Dr. Tasha Dodson IG % 0.5 % Normal 0.0-0.5 [facility] Comment on above: Performed By: #### C MADM, LIPA, BNP, CMP #### [facility] [address] [place] [address] Dr. Tasha Dodson LYMPH # 2.2 103/ul Normal 1.2-3.8 [facility] Comment on above: Performed By: #### C MADM, LIPA, BNP, CMP #### [facility] [address] [place] [address] Dr. Tasha Dodson Lymphocytes/100 WBC (Bld) 15.0 % Critically low 20.5-60.0 [facility] Comment on above: Performed By: #### C MADM, LIPA, BNP, CMP #### [facility] [address] [place] [address] Dr. Tasha Dodson MANUAL DIFF REQ NO Normal [facility] Comment on above: Performed By: #### C MADM, LIPA, BNP, CMP #### [facility] [address] [place] [address] Dr. Tasha Dodson MCH (RBC) [Entitic mass] 31.6 pg Normal 26.7-34.0 [facility] Comment on above: Performed By: #### C MADM, LIPA, BNP, CMP #### [facility] [address] [place] [address] Dr. Tasha Dodson MCHC (RBC) [Mass/Vol] 37.0 g/dL Critically high 29.9-35.2 [facility] Comment on above: Performed By: #### C MADM, LIPA, BNP, CMP #### [facility] [address] [place] [address] Dr. Tasha Dodson MCV (RBC) [Entitic vol] 85.3 fL Normal 81.0-99.0 [facility] Comment on above: Performed By: #### C MADM, LIPA, BNP, CMP #### [facility] [address] [place] [address] Dr. Tasha Dodson MONO # 1.0 103/ul Critically high 0.3-0.8 [facility] Comment on above: Performed By: #### C MADM, LIPA, BNP, CMP #### [facility] [address] [place] [address] Dr. Tasha Dodson Monocytes/100 WBC (Bld) 6.8 % Normal 1.7-12.0 [facility] Comment on above: Performed By: #### C MADM, LIPA, BNP, CMP #### [facility] [address] [place] [address] Dr. Tasha Dodson NEUT # 11.5 103/ul Critically high 1.4-6.5 [facility] Comment on above: Performed By: #### C MADM, LIPA, BNP, CMP #### [facility] [address] [place] [address] Dr. Tasha Dodson Neutrophils/100 WBC (Bld) 76.7 % Critically high 43.0-75.0 [facility] Comment on above: Performed By: #### C MADM, LIPA, BNP, CMP #### [facility] [address] [place] [address] Dr. Tasha Dodson Platelet mean volume (Bld) [Entitic vol] 8.6 fL Critically low 9.5-13.5 [facility] Comment on above: Performed By: #### C MADM, LIPA, BNP, CMP #### [facility] [address] [place] [address] Dr. Tasha Dodson PLT 491 103/ul Critically high 150-450 [facility] Comment on above: Performed By: #### C MADM, LIPA, BNP, CMP #### [facility] [address] [place] [address] Dr. Tasha Dodson RBC 4.56 106/ul Normal 4.20-5.40 [facility] Comment on above: Performed By: #### C MADM, LIPA, BNP, CMP #### [facility] [address] [place] [address] Dr. Tasha Dodson WBC 15.0 103/ul Critically high 4.0-11.0 [facility] Comment on above: Performed By: #### C MADM, LIPA, BNP, CMP #### [facility] [address] [place] [address] Dr. Tasha Dodson CULTURE URINEon 12-26-2021 CULTURE URINE Culture Observations : LIGHT GROWTH OF MIXED GENITAL AMADOU. NO POTENTIAL PATHOGENS SEEN. Normal [facility] Comment on above: Performed By: #### C BC #### [facility] [address] [place] [address] Dr. Tasha Dodson [facility] SARS-CoV-2 (COVID-19) RNA CARITO+probe Ql (Unsp spec) Not detected Normal NOT DETECTED [facility] Comment on above: Result Comment: When diagnostic [...] for this test is supported by the [place] of Health and Human Service's declaration that [...] MADM, LIPA, BNP, CMP #### [facility] [address] [place] [address] Dr. Tasha Dodson ER URINE PROFILEon 2 Bilirubin Ql (U) Negative Normal NEGATIVE [facility] Comment on above: Performed By: #### T SH, BMP #### [facility] [address] [place] [address] Dr. Tasha Dodson Clarity (U) CLEAR Normal CLEAR [facility] Comment on above: Performed By: #### T SH, BMP #### [facility] [address] [place] [address] Dr. Tasha Dodson Color (U) LT. YELLOW Normal YELLOW The [facility] Comment on above: Performed By: #### T SH, BMP #### [facility] [address] [place] [address] Dr. Tasha Dodson ERUAHD A micrscopic examination will be performed if indicated. Normal The [facility] Comment on above: Performed By: #### T SH, BMP #### [facility] [address] [place] [address] Dr. Tasha Dodson Glucose Ql (U) Negative Normal NEGATIVE [facility] Comment on above: Performed By: #### T SH, BMP #### [facility] [address] [place] [address] Dr. Tasha Dodson Hemoglobin Ql (U) TRACE-INTACT Abnormal NEGATIVE [facility] Comment on above: Performed By: #### T SH, BMP #### [facility] [address] [place] [address] Dr. Tasha Dodson Ketones Ql (U) TRACE Abnormal NEGATIVE [facility] Comment on above: Performed By: #### T SH, BMP #### [facility] [address] [place] [address] Dr. Tasha Dodson LEUKOCYTES Negative Normal NEGATIVE [facility] Comment on above: Performed By: #### T SH, BMP #### [facility] [address] [place] [address] Dr. Tasha Dodson Nitrite Ql (U) Negative Normal NEGATIVE [facility] Comment on above: Performed By: #### T SH, BMP #### [facility] [address] [place] [address] Dr. Tasha Dodson pH (U) 7.0 [pH] Normal 5-9 [facility] Comment on above: Performed By: #### T SH, BMP #### [facility] [address] [place] [address] Dr. Tasha Dodson SPEC GRAVITY 1.010 Normal 1.005-<=1.0 25 [facility] Comment on above: Performed By: #### T SH, BMP #### [facility] [address] [place] [address] Dr. Tasha Dodson UA PROTEIN Negative Normal NEGATIVE/ TRACE The [facility] Comment on above: Performed By: #### T SH, BMP #### [facility] [address] [place] [address] Dr. Tasha Dodson UR MICRO IND INDICATED Normal [facility] Comment on above: Performed By: #### T SH, BMP #### [facility] [address] [place] [address] Dr. Tasha Dodson Urobilinogen Qn (U) 0.2 {Juan'U}/dL Normal 0.2 - 1. 0 [facility] Comment on above: Performed By: #### T SH, BMP #### [facility] [address] [place] [address] Dr. Tasha Dodson INFLUENZA A AND B AGon 12-26 INFLUANEGH SEE BELOW Normal [facility] Comment on above: Result Comment: Nega tive for Flu A protein angiten. Infection due to Flu A cannot be ruled out. Flu A angiten in the sample may be below the detection limit of the test. Performed By: #### C BC #### [facility] [address] [place] [address] Dr. Tasha Dodson INFLUBNEGH SEE BELOW Normal [facility] Comment on above: Result Comment: Nega tive for Flu B protein antigen. Infection due to Flu B cannot be ruled out. Flu B antigen in the sample may be below the detection limit of the test. Performed By: #### C BC #### [facility] [address] [place] [address] Dr. Tasha Dodson INFLUENZA A AG Negative Normal NEGATIVE SEE COMMENT [facility] Comment on above: Performed By: #### C BC #### [facility] [address] [place] [address] Dr. Tasha Dodson INFLUENZA B AG Negative Normal NEGATIVE SEE COMMENT [facility] Comment on above: Performed By: #### C BC #### [facility] [address] [place] [address] Dr. Tasha Dodson INTERNAL CONTROLS Within Normal Limits Normal Wi thin Normal Limits [facility] Comment on above: Performed By: #### C BC #### [facility] [address] [place] [address] Dr. Tasha Dodson LACTATE/LACTIC ACIDon 2021 Lactate [Moles/Vol] 1.5 mmol/L Normal 0.4-1.9 [facility] Comment on above: Performed By: #### T SH, BMP #### [facility] [address] [place] [address] Dr. Tasha Dodson LIPASEon 12-26-2021 Lipase [Catalytic activity/Vol] 96.0 U/L Normal 73.0-393.0 [facility] Comment on above: Performed By: #### C MADM, LIPA, BNP, CMP #### [facility] [address] [place] [address] Dr. Tasha Dodson PROF 14(COMP METB)on 022 Albumin [Mass/Vol] 4.2 g/dL Normal 3.4-5.0 [facility] Comment on above: Performed By: #### C MADM, LIPA, BNP, CMP #### [facility] [address] [place] [address] Dr. Tasha Dodson Albumin/Globulin [Mass ratio] 1.1 {ratio} Normal [facility] Comment on above: Performed By: #### C MADM, LIPA, BNP, CMP #### [facility] [address] [place] [address] Dr. Tasha Dodson ALP [Catalytic activity/Vol] 68 U/L Normal 46-116 [facility] Comment on above: Performed By: #### C MADM, LIPA, BNP, CMP #### [facility] [address] [place] [address] Dr. Tasha Dodson ALT [Catalytic activity/Vol] 23 U/L Normal 14-59 [facility] Comment on above: Performed By: #### C MADM, LIPA, BNP, CMP #### [facility] [address] [place] [address] Dr. Tasha Dodson Anion gap [Moles/Vol] 12.3 mmol/L Normal [facility] Comment on above: Performed By: #### C MADM, LIPA, BNP, CMP #### [facility] [address] [place] [address] Dr. Tasha Dodson AST [Catalytic activity/Vol] 25 U/L Normal 15-37 [facility] Comment on above: Performed By: #### C MADM, LIPA, BNP, CMP #### [facility] [address] [place] [address] Dr. Tasha Dodson Bilirubin [Mass/Vol] 0.7 mg/dL Normal 0.2-1.0 [facility] Comment on above: Performed By: #### C MADM, LIPA, BNP, CMP #### [facility] [address] [place] [address] Dr. Tasha Dodson Calcium [Mass/Vol] 9.5 mg/dL Normal 8.5-10.1 [facility] Comment on above: Performed By: #### C MADM, LIPA, BNP, CMP #### [facility] [address] [address] [address] Tasha Dodson Chloride [Moles/Vol] 80 mmol/L Critically low 98-107 [facility] Comment on above: Performed By: #### C MADM, LIPA, BNP, CMP #### [facility] [address] [address] [address] Tasha Dodson CO2 [Moles/Vol] 27.1 mmol/L Normal 21.0-32.0 [facility] Comment on above: Performed By: #### C MADM, LIPA, BNP, CMP #### [facility] [address] [place] [address] Dr. Tasha Dodson Creatinine [Mass/Vol] 0.85 mg/dL Normal 0.55-1.02 [facility] Comment on above: Performed By: #### C MADM, LIPA, BNP, CMP #### [facility] [address] [place] [address] Dr. Tasha Dodson EGFR-AF PANAMANIAN >60 Normal >=60 [facility] Comment on above: Performed By: #### C MADM, LIPA, BNP, CMP #### [facility] [address] [place] [address] Dr. Tasha Dodson EGFR-NON AF PANAMANIAN >60 Normal >=60 [facility] Comment on above: Performed By: #### C MADM, LIPA, BNP, CMP #### [facility] [address] [place] [address] Dr. Tasha Dodson Globulin (S) [Mass/Vol] 3.9 g/dL Normal [facility] Comment on above: Performed By: #### C MADM, LIPA, BNP, CMP #### [facility] [address] [place] [address] Dr. Tasha Dodson Glucose [Mass/Vol] 132 mg/dL Critically high 74-106 [facility] Comment on above: Performed By: #### C MADM, LIPA, BNP, CMP #### [facility] [address] [address] [address] Tasha Dodson Potassium [Moles/Vol] 2.4 mmol/L Critically low 3.5-5.1 [facility] Comment on above: Performed By: #### C MADM, LIPA, BNP, CMP #### [facility] [address] [place] [address] Dr. Tasha Dodson Protein [Mass/Vol] 8.1 g/dL Normal 6.4-8.2 [facility] Comment on above: Performed By: #### C MADM, LIPA, BNP, CMP #### [facility] [address] [place] [address] Dr. Tasha Dodson Sodium [Moles/Vol] 116 mmol/L Critically low 136-145 [facility] Comment on above: Performed By: #### C MADM, LIPA, BNP, CMP #### [facility] [address] [place] [address] Dr. Tasha Dodson Urea nitrogen [Mass/Vol] 12.0 mg/dL Normal 7.0-18.0 [facility] Comment on above: Performed By: #### C MADM, LIPA, BNP, CMP #### [facility] [address] [place] [address] Dr. Tasha Dodson Urea nitrogen/Creatinine [Mass ratio] 14.1 mg/mg Normal [facility] Comment on above: Performed By: #### C MADM, LIPA, BNP, CMP #### [facility] [address] [place] [address] Dr. Tasha Dodson PROF CHEM 8 (BAS METB)on Anion gap [Moles/Vol] 11.4 mmol/L Normal [facility] Comment on above: Performed By: #### T SH, BMP #### [facility] [address] [place] [address] Dr. Tasha Dodson Calcium [Mass/Vol] 8.4 mg/dL Critically low 8.5-10.1 [facility] Comment on above: Performed By: #### T SH, BMP #### [facility] [address] [address] [address] Tasha Dodson Chloride [Moles/Vol] 89 mmol/L Critically low 98-107 [facility] Comment on above: Performed By: #### T SH, BMP #### [facility] [address] [address] [address] Tasha Dodson CO2 [Moles/Vol] 25.5 mmol/L Normal 21.0-32.0 [facility] Comment on above: Performed By: #### T SH, BMP #### [facility] [address] [address] [address] Tasha Dodson Creatinine [Mass/Vol] 0.89 mg/dL Normal 0.55-1.02 [facility] Comment on above: Performed By: #### T SH, BMP #### [facility] [address] [address] [address] Tasha Dodson EGFR-AF PANAMANIAN >60 Normal >=60 [facility] Comment on above: Performed By: #### T SH, BMP #### [facility] [address] [address] [address] Tasha Dodson EGFR-NON AF PANAMANIAN 60 mL/min/1.73m2 Normal >=60 [facility] Comment on above: Performed By: #### T SH, BMP #### [facility] [address] [address] [address] Tasha Dodson Glucose [Mass/Vol] 166 mg/dL Critically high 74-106 [facility] Comment on above: Performed By: #### T SH, BMP #### [facility] [address] [address] [address] Tasha Dodson Potassium [Moles/Vol] 3.0 mmol/L Critically low 3.5-5.1 [facility] Comment on above: Performed By: #### T SH, BMP #### [facility] [address] [address] [address] Tasha Dodson Sodium [Moles/Vol] 123 mmol/L Critically low 136-145 [facility] Comment on above: Performed By: #### T JESI, BMP #### [facility] [address] [place] [address] Dr. Tasha Dodson Urea nitrogen [Mass/Vol] 9.0 mg/dL Normal 7.0-18.0 [facility] Comment on above: Performed By: #### T JESI, BMP #### [facility] [address] [place] [address] Dr. Tasha Dodson Urea nitrogen/Creatinine [Mass ratio] 10.1 mg/mg Normal [facility] Comment on above: Performed By: #### T JESI, BMP #### [facility] [address] [place] [address] Dr. Tasha Dodson PROTIMEon 12-26-2021 INR Coag (PPP) [Relative time] 0.96 {INR} Normal [facility] Comment on above: Performed By: #### T JESI, BMP #### [facility] [address] [place] [address] Dr. Tasha Dodson INR GUIDELINES SEE BELOW Normal [facility] Comment on above: Result Comment: JO RED INR: 2.0 - 3.0 CONDITIONS NOT LISTED BELOW 2.5 - 3.5 FOR PROSTHETIC HEART VALVE REPLACEMENT 2.5 - 3.5 RECURRENT THROMBOSIS Performed By: #### T JESI, BMP #### [facility] [address] [place] [address] Dr. Tasha Dodson PT Coag (PPP) [Time] 10.4 s Normal 9.0-11.6 [facility] Comment on above: Performed By: #### T JESI, BMP #### [facility] [address] [place] [address] Dr. Tasha Dodson PTTon 12-26-2021 aPTT Coag (Bld) [Time] 26.2 s Normal 22.3-36.2 [facility] Comment on above: Performed By: #### T JESI, BMP #### [facility] [address] [place] [address] Dr. Tasha Dodson SODIUM RANDOM URINEon 2021 Sodium (U) [Moles/Vol] 71 mmol/L Normal 30-90 [facility] Comment on above: Performed By: #### T SH, BMP #### [facility] [address] [place] [address] Dr. Tasha Dodson T4on 12-26-2021 T4 [Mass/Vol] 10.60 ug/dL Normal 4.80-13.90 [facility] Comment on above: Performed By: #### C BC #### [facility] [address] [place] [address] Dr. Tasha Dodson TSHon 12-26-2021 TSH 5.236 uIU/mL Critically high 0.358-3.740 [facility] Comment on above: Performed By: #### C BC #### [facility] [address] [place] [address] Dr. Tasha Dodson URINE MICROSCOPIC ONLYon BACTERIA TRACE Abnormal NONE SEEN [facility] Comment on above: Performed By: #### T SH, BMP #### [facility] [address] [place] [address] Dr. Tasha Dodson Bacteria identified Cx Nom (U) NOT INDICATED Normal [facility] Comment on above: Performed By: #### T SH, BMP #### [facility] [address] [place] [address] Dr. Tasha Dodson CAST NONE SEEN Normal NONE SEEN [facility] Comment on above: Performed By: #### T SH, BMP #### [facility] [address] [place] [address] Dr. Tasha Dodson Crystals LM Nom (Urine sed) NONE SEEN Normal NONE SEEN [facility] Comment on above: Performed By: #### T SH, BMP #### [facility] [address] [place] [address] Dr. Tasha Dodson Epithelial cells LM Ql (Urine sed) NONE SEEN Normal NONE SEEN /RARE [facility] Comment on above: Performed By: #### T SH, BMP #### [facility] [address] [place] [address] Dr. Tasha Dodson MUCOUS NONE SEEN Normal NONE SEEN [facility] Comment on above: Performed By: #### T SH, BMP #### [facility] [address] [address] [address] Tasha Dodson RBC 0-2 Normal 0-2 [facility] Comment on above: Performed By: #### T PAWAN DENNISON #### [facility] [address] [address] [address] Tasha Dodson WBC 0-2 Abnormal NONE SEEN [facility] Comment on above: Performed By: #### T PAWAN DENNISON #### [facility] [facility] [address] [address] [address] Tasha Dodson XR CHEST 1 Von [...] TING MIXON Date: 2021-12-26 11:32 Normal [facility] XR LSPINE MIN 4 VIEWSon 11-20 XR [...] JESUS BRUNO Date: 2021-11-30 22:52 Normal [facility] CBC AUTO DIFFon 11-09-2021 BASO # 0.1 103/ul Normal 0.0-0.1 [facility] Comment on above: Performed By: #### C MADM, LIPA, BNP, CMP #### [facility] [address] [place] [address] Dr. Tasha Dodson Basophils/100 WBC (Bld) 0.7 % Normal 0.2-2.0 [facility] Comment on above: Performed By: #### C MADM, LIPA, BNP, CMP #### [facility] [address] [place] [address] Dr. Tasha Dodson EO # 0.2 103/ul Normal 0.0-0.7 [facility] Comment on above: Performed By: #### C MADM, LIPA, BNP, CMP #### [facility] [address] [place] [address] Dr. Tasha Dodson Eosinophils/100 WBC (Bld) 1.8 % Normal 0.9-7.0 [facility] Comment on above: Performed By: #### C MADM, LIPA, BNP, CMP #### [facility] [address] [place] [address] Dr. Tasha Dodson Erythrocyte distribution width (RBC) [Ratio] 13.0 % Normal 11.0-15.0 [facility] Comment on above: Performed By: #### C MADM, LIPA, BNP, CMP #### [facility] [address] [place] [address] Dr. Tasha Dodson Hematocrit (Bld) [Volume fraction] 33.8 % Critically low 36.0-48.0 [facility] Comment on above: Performed By: #### C MADM, LIPA, BNP, CMP #### [facility] [address] [place] [address] Dr. Tasha Dodson Hemoglobin (Bld) [Mass/Vol] 12.5 g/dL Normal 12.0-16.0 [facility] Comment on above: Performed By: #### C MADM, LIPA, BNP, CMP #### [facility] [address] [place] [address] Dr. Tasha Dodson IG # 0.02 10e3/ul Normal 0.00-0.03 [facility] Comment on above: Performed By: #### C MADM, LIPA, BNP, CMP #### [facility] [address] [place] [address] Dr. Tasha Dodson IG % 0.2 % Normal 0.0-0.5 [facility] Comment on above: Performed By: #### C MADM, LIPA, BNP, CMP #### [facility] [address] [place] [address] Dr. Tasha Dodson LYMPH # 2.9 103/ul Normal 1.2-3.8 [facility] Comment on above: Performed By: #### C MADM, LIPA, BNP, CMP #### [facility] [address] [place] [address] Dr. Tasha Dodson Lymphocytes/100 WBC (Bld) 29.4 % Normal 20.5-60.0 [facility] Comment on above: Performed By: #### C MADM, LIPA, BNP, CMP #### [facility] [address] [place] [address] Dr. Tasha Dodson MANUAL DIFF REQ NO Normal [facility] Comment on above: Performed By: #### C MADM, LIPA, BNP, CMP #### [facility] [address] [place] [address] Dr. Tasha Dodson MCH (RBC) [Entitic mass] 34.1 pg Critically high 26.7-34.0 [facility] Comment on above: Performed By: #### C MADM, LIPA, BNP, CMP #### [facility] [address] [place] [address] Dr. Tasha Dodson MCHC (RBC) [Mass/Vol] 37.0 g/dL Critically high 29.9-35.2 [facility] Comment on above: Performed By: #### C MADM, LIPA, BNP, CMP #### [facility] [address] [place] [address] Dr. Tasha Dodson MCV (RBC) [Entitic vol] 92.1 fL Normal 81.0-99.0 [facility] Comment on above: Performed By: #### C MADM, LIPA, BNP, CMP #### [facility] [address] [place] [address] Dr. Tasha Dodson MONO # 0.8 103/ul Normal 0.3-0.8 [facility] Comment on above: Performed By: #### C MADM, LIPA, BNP, CMP #### [facility] [address] [place] [address] Dr. Tasha Dodson Monocytes/100 WBC (Bld) 8.2 % Normal 1.7-12.0 [facility] Comment on above: Performed By: #### C MADM, LIPA, BNP, CMP #### [facility] [address] [place] [address] Dr. Tasha Dodson NEUT # 5.9 103/ul Normal 1.4-6.5 [facility] Comment on above: Performed By: #### C MADM, LIPA, BNP, CMP #### [facility] [address] [place] [address] Dr. Tasha Dodson Neutrophils/100 WBC (Bld) 59.7 % Normal 43.0-75.0 [facility] Comment on above: Performed By: #### C MADM, LIPA, BNP, CMP #### [facility] [address] [place] [address] Dr. Tasha Dodson Platelet mean volume (Bld) [Entitic vol] 8.9 fL Critically low 9.5-13.5 [facility] Comment on above: Performed By: #### C MADM, LIPA, BNP, CMP #### [facility] [address] [place] [address] Dr. Tasha Dodson PLT 370 103/ul Normal 150-450 [facility] Comment on above: Performed By: #### C MADM, LIPA, BNP, CMP #### [facility] [address] [place] [address] Dr. Tasha Dodson RBC 3.67 106/ul Critically low 4.20-5.40 [facility] Comment on above: Performed By: #### C MADM, LIPA, BNP, CMP #### [facility] [address] [place] [address] Dr. Tasha Dodson WBC 9.9 103/ul Normal 4.0-11.0 [facility] Comment on above: Performed By: #### C MADM, LIPA, BNP, CMP #### [facility] [address] [place] [address] Dr. Tasha Dodson FREE T4on 11-09-2021 Free T4 [Mass/Vol] 1.48 ng/dL Critically high 0.76-1.46 [facility] Comment on above: Performed By: #### F T4 #### [facility] [address] [place] [address] Dr. Tasha Dodson PROF CHEM 8 (BAS METB)on Anion gap [Moles/Vol] 11.1 mmol/L Normal [facility] Comment on above: Performed By: #### T SH, BMP #### [facility] [address] [place] [address] Dr. Tasha Dodson Calcium [Mass/Vol] 9.3 mg/dL Normal 8.5-10.1 [facility] Comment on above: Performed By: #### T SH, BMP #### [facility] [address] [place] [address] Dr. Tasha Dodson Chloride [Moles/Vol] 92 mmol/L Critically low 98-107 [facility] Comment on above: Performed By: #### T SH, BMP #### [facility] [address] [place] [address] Dr. Tasha Dodson CO2 [Moles/Vol] 29.2 mmol/L Normal 21.0-32.0 [facility] Comment on above: Performed By: #### T SH, BMP #### [facility] [address] [place] [address] Dr. Tasha Dodson Creatinine [Mass/Vol] 0.68 mg/dL Normal 0.55-1.02 [facility] Comment on above: Performed By: #### T SH, BMP #### [facility] [address] [place] [address] Dr. Tasha Dodson EGFR-AF PANAMANIAN >60 Normal >=60 [facility] Comment on above: Performed By: #### T SH, BMP #### [facility] [address] [address] [address] Tasha Dodson EGFR-NON AF PANAMANIAN >60 Normal >=60 [facility] Comment on above: Performed By: #### T SH, BMP #### [facility] [address] [address] [address] Tasha Dodson Glucose [Mass/Vol] 109 mg/dL Critically high 74-106 [facility] Comment on above: Performed By: #### T SH, BMP #### [facility] [address] [address] [address] Tasha Dodson Potassium [Moles/Vol] 3.3 mmol/L Critically low 3.5-5.1 [facility] Comment on above: Performed By: #### T SH, BMP #### [facility] [address] [place] [address] Dr. Tasha Dodson Sodium [Moles/Vol] 129 mmol/L Critically low 136-145 [facility] Comment on above: Performed By: #### T SH, BMP #### [facility] [address] [address] [address] Tasha Dodson Urea nitrogen [Mass/Vol] 9.0 mg/dL Normal 7.0-18.0 [facility] Comment on above: Performed By: #### T SH, BMP #### [facility] [address] [place] [address] Dr. Tasha Dodson Urea nitrogen/Creatinine [Mass ratio] 13.2 mg/mg Normal [facility] Comment on above: Performed By: #### T SH, BMP #### [facility] [address] [address] [address] Tasha Dodson TSHon 11-09-2021 TSH 1.193 uIU/mL Normal 0.358-3.740 [facility] Comment on above: Performed By: #### T SH, BMP #### [facility] [address] [place] [address] Dr. Tasha Dodson LIPID PROFILEon 08-06-2021 CHOL-HDL RATIO NORM SEE BELOW Normal [facility] Comment on above: Result Comment: 3.3 - 4.4 LOW RISK 4.4 - 7.1 AVERAGE RISK 7.1 - 11.0 MODERATE RISK >11.0 HIGH RISK Performed By: #### C MADM, LIPA, BNP, CMP #### [facility] [address] [address] [address] Tasha Dodson Cholesterol [Mass/Vol] 198 mg/dL Normal <=200 Th [facility] Comment on above: Performed By: #### C MADM, LIPA, BNP, CMP #### [facility] [address] [address] [address] Tasha Dodson Cholesterol in HDL [Mass/Vol] 77 mg/dL Critically high 40-60 [facility] Comment on above: Performed By: #### C MADM, LIPA, BNP, CMP #### [facility] [address] [address] [address] Tasha Dodson Cholesterol in LDL [Mass/Vol] 106.0 mg/dL Normal [facility] Comment on above: Performed By: #### C MADM, LIPA, BNP, CMP #### [facility] [address] [address] [address] Tasha Dodson Cholesterol.total/Shahana sterol in HDL [Mass ratio] 2.6 {ratio} Normal [facility] Comment on above: Performed By: #### C MADM, LIPA, BNP, CMP #### [facility] [address] [address] [address] Tasha Dodson HDL NORMAL > or = 60 mg/dl - LO W CARDIOVASCULAR RISK <40 mg/dl - HIGH CARDIOVASCULAR RISK Normal [facility] Comment on above: Performed By: #### C MADM, LIPA, BNP, CMP #### [facility] [address] [address] [address] Tasha Dodson LDL CALC NORMAL SEE BELOW Normal [facility] Comment on above: Result Comment: <100 mg/dl OPTIMAL 100 - 129 mg/dl NEAR OR ABOVE OPTIMAL 130 - 159 mg/dl BORDERLINE HIGH 160 - 189 mg/dl HIGH >190 mg/dl VERY HIGH Performed By: #### C MADM, LIPA, BNP, CMP #### [facility] [address] [address] [address] Tasha Dodson Triglyceride [Mass/Vol] 75 mg/dL Normal <=150 T [facility] Comment on above: Performed By: #### C MADM, LIPA, BNP, CMP #### [facility] [address] [address] [address] Tasha Dodson VLDL CALC 15.0 mg/dL Normal [facility] Comment on above: Performed By: #### C MADM, LIPA, BNP, CMP #### [facility] [address] [address] [address] Tasha Dodson LIVER PROFILEon 08-06-2021 Albumin [Mass/Vol] 3.7 g/dL Normal 3.4-5.0 [facility] Comment on above: Performed By: #### C MADM, LIPA, BNP, CMP #### [facility] [address] [address] [address] Tasha Dodson Albumin/Globulin [Mass ratio] 1.0 {ratio} Normal [facility] Comment on above: Performed By: #### C MADM, LIPA, BNP, CMP #### [facility] [address] [address] [address] Tasha Dodson ALP [Catalytic activity/Vol] 62 U/L Normal 46-116 [facility] Comment on above: Performed By: #### C MADM, LIPA, BNP, CMP #### [facility] [address] [address] [address] Tasha Dodson ALT [Catalytic activity/Vol] 26 U/L Normal 14-59 [facility] Comment on above: Performed By: #### C MADM, LIPA, BNP, CMP #### [facility] [address] [address] [address] Tasha Dodson AST [Catalytic activity/Vol] 24 U/L Normal 15-37 [facility] Comment on above: Performed By: #### C MADM, LIPA, BNP, CMP #### [facility] [address] [address] [address] Tasha Dodson BILI, CONJUGATED 0.1 mg/dL Normal 0.0-0.2 [facility] Comment on above: Performed By: #### C MADM, LIPA, BNP, CMP #### [facility] [address] [place] [address] Dr. Tasha Dodson Bilirubin [Mass/Vol] 0.5 mg/dL Normal 0.2-1.0 [facility] Comment on above: Performed By: #### C MADM, LIPA, BNP, CMP #### [facility] [address] [place] [address] Dr. Tasha Dodson Globulin (S) [Mass/Vol] 3.8 g/dL Normal [facility] Comment on above: Performed By: #### C MADM, LIPA, BNP, CMP #### [facility] [address] [place] [address] Dr. Tasha Dodson Protein [Mass/Vol] 7.5 g/dL Normal 6.4-8.2 [facility] Comment on above: Performed By: #### C MADM, LIPA, BNP, CMP #### [facility] [address] [place] [address] Dr. Tasha Dodson FREE T4on 07-28-2021 Free T4 [Mass/Vol] 1.32 ng/dL Normal 0.76-1.46 [facility] Comment on above: Performed By: #### T SH, BMP #### [facility] [address] [place] [address] Dr. Tasha Dodson PROF CHEM 8 (BAS METB)on Anion gap [Moles/Vol] 11.6 mmol/L Normal [facility] Comment on above: Performed By: #### B MP, TSH #### [facility] [address] [place] [address] Dr. Tasha Dodson Calcium [Mass/Vol] 9.4 mg/dL Normal 8.5-10.1 [facility] Comment on above: Performed By: #### B MP, TSH #### [facility] [address] [place] [address] Dr. Tasha Dodson Chloride [Moles/Vol] 93 mmol/L Critically low 98-107 [facility] Comment on above: Performed By: #### B MP, TSH #### [facility] [address] [address] [address] Tasha Dodson CO2 [Moles/Vol] 29.8 mmol/L Normal 21.0-32.0 [facility] Comment on above: Performed By: #### B MP, TSH #### [facility] [address] [address] [address] Tasha Dodson Creatinine [Mass/Vol] 0.74 mg/dL Normal 0.55-1.02 [facility] Comment on above: Performed By: #### B MP, TSH #### [facility] [address] [place] [address] Dr. Tasha Dodson EGFR-AF PANAMANIAN >60 Normal >=60 [facility] Comment on above: Performed By: #### B MP, TSH #### [facility] [address] [place] [address] Dr. Tasha Dodson EGFR-NON AF PANAMANIAN >60 Normal >=60 [facility] Comment on above: Performed By: #### B MP, TSH #### [facility] [address] [address] [address] Tasha Dodson Glucose [Mass/Vol] 114 mg/dL Critically high 74-106 [facility] Comment on above: Performed By: #### B MP, TSH #### [facility] [address] [address] [address] Tasha Dodson Potassium [Moles/Vol] 3.4 mmol/L Critically low 3.5-5.1 [facility] Comment on above: Performed By: #### B MP, TSH #### [facility] [address] [address] [address] Tasha Dodson Sodium [Moles/Vol] 131 mmol/L Critically low 136-145 Th [facility] Comment on above: Performed By: #### B MP, TSH #### [facility] [address] [address] [address] Tasha Dodson Urea nitrogen [Mass/Vol] 12.0 mg/dL Normal 7.0-18.0 [facility] Comment on above: Performed By: #### B MP, TSH #### [facility] [address] [address] [address] Tasha Dodson Urea nitrogen/Creatinine [Mass ratio] 16.2 mg/mg Normal [facility] Comment on above: Performed By: #### B MP, TSH #### [facility] [address] [address] [address] Tasha Dodson TSHon 07-28-2021 TSH 1.790 uIU/mL Normal 0.358-3.740 [facility] Comment on above: Performed By: #### B MP, TSH #### [facility] [address] [place] [address] Dr. Tasha Dodson TSH RANGE SEE BELOW Normal [facility] Comment on above: Result Comment: <0.3 4 UIU/ml HYPERTHYROID 0.34-5.60 UIU/ml EUTHYROID >5.60 UIU/ml HYPOTHYROID Performed By: #### B MP, TSH #### [facility] [address] [address] [address] Tasha Dodson CBC Auto Differentialon 10-0 Basophils (Bld) [#/Vol] 0.1 10*3/uL 0 - 0.2 K/uL [place] Basophils/100 WBC (Bld) 1.1 % [place] Eosinophils (Bld) [#/Vol] 0.2 10*3/uL 0 - 0.7 K/uL [place] Eosinophils/100 WBC (Bld) 1.4 % [place] Erythrocyte distribution width (RBC) [Ratio] 14.4 % 11.5 - 14.5 % [place] Hematocrit (Bld) [Volume fraction] 33.6 % Low 37 - 47 % [place] Hemoglobin (Bld) [Mass/Vol] 11.1 g/dL Low 12 - 16 g/dL [place] Interpretation and review of laboratory results Abnormal [place] Lymphocytes (Bld) [#/Vol] 2.3 10*3/uL 1 - 4.8 K/uL [place] Lymphocytes/100 WBC (Bld) 18.0 % [place] MCH (RBC) [Entitic mass] 29.5 pg 27 - 31.3 pg [place] MCHC (RBC) [Mass/Vol] 33.0 % 33 - 37 % [place], [place] MCV (RBC) [Entitic vol] 89.5 fL 82 - 100 fL [place] Monocytes (Bld) [#/Vol] 0.9 10*3/uL High 0.2 - 0.8 K/uL [place] Monocytes/100 WBC (Bld) 6.9 % [place] Neutrophils Absolute 9.1 K/uL High 1.4 - 6 .5 K/uL [place] Neutrophils/100 WBC (Bld) 72.6 % [place] Platelets (Bld) [#/Vol] 548 10*3/uL High 130 - 400 K/uL [place] RBC (Bld) [#/Vol] 3.75 10*6/uL Low [place] WBC (Bld) [#/Vol] 12.5 10*3/uL High 4.8 - 10.8 K/uL [place] CBC With Platelet and Differ entialon 11-20-2018 Basophils (Bld) [#/Vol] 0.1 10*3/uL Normal 0.0-0.2 [facility] Comment on above: Performed By: #### E SR #### [facility] [address] [facility] [address] Basophils/100 WBC (Bld) 1.1 % Normal [facility] Comment on above: Performed By: #### E SR #### [facility] [address] [facility] [address] Eosinophils (Bld) [#/Vol] 0.2 10*3/uL Normal 0.0-0.7 [facility] Comment on above: Performed By: #### E SR #### [facility] [address] [place] [address] Eosinophils/100 WBC (Bld) 1.4 % Normal [facility] Comment on above: Performed By: #### E SR #### [facility] [address] [place] [address] Erythrocyte distribution width (RBC) [Ratio] 14.4 % Normal 11.5-14.5 [facility] Comment on above: Performed By: #### E SR #### [facility] [address] [place] [address] Hematocrit (Bld) [Volume fraction] 33.6 % Low 37.0-47.0 [facility] Comment on above: Performed By: #### E SR #### [facility] [address] [place] [address] Hemoglobin (Bld) [Mass/Vol] 11.1 g/dL Low 12.0-16.0 [facility] Comment on above: Performed By: #### E SR #### [facility] [address] [place] [address] Lymphocytes (Bld) [#/Vol] 2.3 10*3/uL Normal 1.0-4.8 [facility] Comment on above: Performed By: #### E SR #### [facility] [address] [place] [address] Lymphocytes/100 WBC (Bld) 18.0 % Normal [facility] Comment on above: Performed By: #### E SR #### [facility] [address] [place] [address] MCH (RBC) [Entitic mass] 29.5 pg Normal 27.0-31.3 [facility] Comment on above: Performed By: #### E SR #### [facility] [address] [place] [address] MCHC (RBC) [Mass/Vol] 33.0 % Normal 33.0-37.0 [facility] Comment on above: Performed By: #### E SR #### [facility] [address] [place] [address] MCV (RBC) [Entitic vol] 89.5 fL Normal 82.0-100.0 [facility] Comment on above: Performed By: #### E SR #### [facility] [address] [place] [address] Monocytes (Bld) [#/Vol] 0.9 10*3/uL Critically high 0.2-0. 8 [facility] Comment on above: Performed By: #### E SR #### [facility] [address] [place] [address] Monocytes/100 WBC (Bld) 6.9 % Normal [facility] Comment on above: Performed By: #### E SR #### [facility] [address] [place] [address] Neutrophils (Bld) [#/Vol] 9.1 10*3/uL Critically high 1.4-6.5 [facility] Comment on above: Performed By: #### E SR #### [facility] [address] [place] [address] Neutrophils/100 WBC (Bld) 72.6 % Normal [facility] Comment on above: Performed By: #### E SR #### [facility] [address] [place] [address] Platelets (Bld) [#/Vol] 548 10*3/uL Critically high 130-[address] [facility] Comment on above: Performed By: #### E SR #### [facility] [address] [place] [address] RBC (Bld) [#/Vol] 3.75 10*6/uL Low 4.20-5.40 [facility] Comment on above: Performed By: #### E SR #### [facility] [address] [place] [address] WBC (Bld) [#/Vol] 12.5 10*3/uL Critically high 4.8-10.8 [facility] Comment on above: Performed By: #### E SR #### [facility] [address] [place] [address] EKG 12 Leadon 11-20-2018 Atrial Rate 79 BPM [place] P [place] 58 degrees [place] P-R Interval 176 ms [place] Q-T Interval 404 ms [facility], [place] QRS Duration 130 ms [place] QTc Calculation (Bazett) 463 ms [place] R [place] -11 degrees [facility], [place] T [place] 5 degrees [place] Urea nitrogen [Mass/Vol] Normal sinus rhythm Right bundle branch block Moderate voltage criteria for LVH, may be normal variant Abnormal ECG When compared with ECG of 13-NOV-2018 08:33, No significant change was found Confirmed by Анна Zamarripa ([id number]) on 11/20/2018 9:39:56 AM [place] Ventricular Rate 79 BPM [place] Joseph, Chpo Incoming Results From [place] - 11/20/2018 9:40 AM EDT Normal sinus rhythm Right bundle branch block Moderate voltage criteria for LVH, may be normal variant Abnormal ECG When compared with ECG of 13-NOV-2018 08:33, No significant change was found Confirmed by Анна Zamarripa ([id number]) on 11/20/2018 9:39:56 AM [place] CBC Auto Differentialon 10-23 Neutrophils Absolute 6.1 K/uL 1.4 - 6 .5 K/uL [place], [place] CBC With Platelet and Differ entialon 11-19-2018 Basophils (Bld) [#/Vol] 0.2 10*3/uL Normal 0.0-0.2 [place], [place] Comment on above: Performed By: #### C MP #### [facility] [address] [place] [address] Basophils/100 WBC (Bld) 1.5 % Normal [place], [place] Comment on above: Performed By: #### C MP #### [facility] [address] [place] [address] Eosinophils (Bld) [#/Vol] 0.3 10*3/uL Normal 0.0-0.7 [place], [place] Comment on above: Performed By: #### C MP #### [facility] [address] [place] [address] Eosinophils/100 WBC (Bld) 2.5 % Normal [place], [place] Comment on above: Performed By: #### C MP #### [facility] [address] [place] [address] Erythrocyte distribution width (RBC) [Ratio] 14.1 % Normal 11.5-14.5 [place], [place] Comment on above: Performed By: #### C MP #### [facility] [address] [place] [address] Hematocrit (Bld) [Volume fraction] 29.3 % Low 37.0-47.0 [place], [place] Comment on above: Performed By: #### C MP #### [facility] [address] [place] [address] Hemoglobin (Bld) [Mass/Vol] 10.1 g/dL Low 12.0-16.0 [place] Comment on above: Performed By: #### C MP #### [facility] [address] [place] [address] Lymphocytes (Bld) [#/Vol] 2.8 10*3/uL Normal 1.0-4.8 [place] Comment on above: Performed By: #### C MP #### [facility] [address] [place] [address] Lymphocytes/100 WBC (Bld) 27.3 % Normal [place] Comment on above: Performed By: #### C MP #### [facility] [address] [place] [address] MCH (RBC) [Entitic mass] 30.7 pg Normal 27.0-31.3 [place] Comment on above: Performed By: #### C MP #### [facility] [address] [place] [address] MCHC (RBC) [Mass/Vol] 34.6 % Normal 33.0-37.0 [place], [place] Comment on above: Performed By: #### C MP #### [facility] [address] [place] [address] MCV (RBC) [Entitic vol] 88.9 fL Normal 82.0-100.0 [place], [place] Comment on above: Performed By: #### C MP #### [facility] [address] [place] [address] Monocytes (Bld) [#/Vol] 0.9 10*3/uL Critically high 0.2-0. 8 [place], [place] Comment on above: Performed By: #### C MP #### [facility] [address] [place] [address] Monocytes/100 WBC (Bld) 9.2 % Normal [place], [place] Comment on above: Performed By: #### C MP #### [facility] [address] [place] [address] Neutrophils (Bld) [#/Vol] 6.1 10*3/uL Normal 1.4-6.5 [facility] Comment on above: Performed By: #### C MP #### [facility] [address] [place] [address] Neutrophils/100 WBC (Bld) 59.5 % Normal [place], [place] Comment on above: Performed By: #### C MP #### [facility] [address] [place] [address] Platelets (Bld) [#/Vol] 396 10*3/uL Normal 130-400 [place], [place] Comment on above: Performed By: #### C MP #### [facility] [address] [place] [address] RBC (Bld) [#/Vol] 3.30 10*6/uL Low 4.20-5.40 [place] Comment on above: Performed By: #### C MP #### [facility] [address] [place] [address] WBC (Bld) [#/Vol] 10.2 10*3/uL Normal 4.8-10.8 [place] Comment on above: Performed By: #### C MP #### [facility] [address] [place] [address] High Sensitivity CRPon 11-19 High Sensitivity CRP 89.2 mg/L Critically high 0.0-5.0 [facility] Comment on above: Performed By: #### E SR #### [facility] [address] [place] [address] High sensitivity CRPon 11-19 CRP High Sensitivity 89.2 mg/L High 0 - 5 mg/L [place], [place] Interpretation and review of laboratory results Abnormal [place] Otheron 11-19-2018 Interpretation and review of laboratory results Abnormal [place] Sedimentation Rateon 019 Sedimentation Rate 55 mm Critically high 0-30 [facility] Comment on above: Performed By: #### C MP #### [facility] [address] [place] [address] Sed Rate 55 mm High 0 - 30 mm [place] Basic Metabolic Panelon 10-22 Anion gap [Moles/Vol] 14 mmol/L Normal 9-15 [facility] Comment on above: Performed By: #### C MP #### [facility] [address] [place] [address] Calcium [Mass/Vol] 8.8 mg/dL Normal 8.5-9.9 [facility] Comment on above: Performed By: #### C MP #### [facility] [address] [place] [address] Chloride [Moles/Vol] 95 mmol/L Normal 95-107 [facility] Comment on above: Performed By: #### C MP #### [facility] [address] [place] [address] CO2 [Moles/Vol] 26 mmol/L Normal 20-31 [facility] Comment on above: Performed By: #### C MP #### [facility] [address] [place] [address] Creatinine [Mass/Vol] 0.58 mg/dL Normal 0.50-0.90 [facility] Comment on above: Performed By: #### C MP #### [facility] [address] [place] [address] GFR/1.73 sq M predicted among blacks MDRD (S/P/Bld) [Vol rate/Area] mL/min/{1.73_m2} Normal >60 [facility] Comment on above: Result Comment: >60 mL/min/1.73m2 EGFR, calc. for ages 18 and older using the MDRD formula (not corrected for weight), is valid for stable renal function. Performed By: #### C MP #### [facility] [address] [place] [address] GFR/1.73 sq M.predicted MDRD (S/P/Bld) [Vol rate/Area] mL/min/{1.73_m2} Normal >60 [facility] Comment on above: Result Comment: >60 mL/min/1.73m2 EGFR, calc. for ages 18 and older using the MDRD formula (not corrected for weight), is valid for stable renal function. Performed By: #### C MP #### [facility] [address] [place] [address] Glucose [Mass/Vol] 156 mg/dL Critically high 70-99 [facility] Comment on above: Performed By: #### C MP #### [facility] [address] [place] [address] Potassium [Moles/Vol] 3.3 mmol/L Low 3.4-4.9 [facility] Comment on above: Performed By: #### C MP #### [facility] [address] [place] [address] Sodium [Moles/Vol] 135 mmol/L Normal 135-144 [facility] Comment on above: Performed By: #### C MP #### [facility] [address] [place] [address] Urea nitrogen [Mass/Vol] 11 mg/dL Normal 8-23 [facility] Comment on above: Performed By: #### C MP #### [facility] [address] [place] [address] Anion gap [Moles/Vol] 14 mmol/L [place] Calcium [Mass/Vol] 8.8 mg/dL 8.5 - 9.9 mg/dL [place] Chloride [Moles/Vol] 95 mmol/L [place] CO2 [Moles/Vol] 26 mmol/L [place] Creatinine [Mass/Vol] 0.58 mg/dL 0.5 - 0.9 mg/dL [place] GFR >60.0 >60 [place] Comment on above: >60 mL/min/1.73m2 EG FR, calc. for ages 18 and older using the MDRD formula (not corrected for weight), is valid for stable renal function. GFR Non- >60.0 >60 [place] Comment on above: >60 mL/min/1.73m2 EG FR, calc. for ages 18 and older using the MDRD formula (not corrected for weight), is valid for stable renal function. Glucose [Mass/Vol] 156 mg/dL High 70 - 99 mg/dL [place] Interpretation and review of laboratory results Abnormal [place] Potassium [Moles/Vol] 3.3 mmol/L [place] Sodium [Moles/Vol] 135 mmol/L [place] Urea nitrogen [Mass/Vol] 11 mg/dL 8 - 23 mg/dL [place] Magnesiumon 11-18-2018 Magnesium [Mass/Vol] 1.8 mg/dL Normal 1.7-2.4 [facility] Comment on above: Performed By: #### C MP #### [facility] [address] [place] [address] Magnesium [Mass/Vol] 1.8 mg/dL 1.7 - 2 .4 mg/dL [place] TSH w/out Reflexon 9 TSH Qn 0.880 uIU/mL Normal 0.440-3.86 [facility] Comment on above: Performed By: #### C MP #### [facility] [address] [place] [address] TSH without Reflexon 019 TSH Qn 0.880 m[IU]/L [place] CBC Auto Differentialon 10-22 Basophils (Bld) [#/Vol] 0.1 10*3/uL 0 - 0.2 K/uL [place] Basophils/100 WBC (Bld) 0.7 % [place] Eosinophils (Bld) [#/Vol] 0.4 10*3/uL 0 - 0.7 K/uL [place] Eosinophils/100 WBC (Bld) 2.8 % [place] Erythrocyte distribution width (RBC) [Ratio] 14.2 % 11.5 - 14.5 % [place] Hematocrit (Bld) [Volume fraction] 32.3 % Low 37 - 47 % [place] Hemoglobin (Bld) [Mass/Vol] 10.8 g/dL Low 12 - 16 g/dL [place] Interpretation and review of laboratory results Abnormal [place] Lymphocytes (Bld) [#/Vol] 2.6 10*3/uL 1 - 4.8 K/uL [place] Lymphocytes/100 WBC (Bld) 16.8 % [place] MCH (RBC) [Entitic mass] 30.3 pg 27 - 31.3 pg [place] MCHC (RBC) [Mass/Vol] 33.4 % 33 - 37 % [place] MCV (RBC) [Entitic vol] 90.5 fL 82 - 100 fL [place] Monocytes (Bld) [#/Vol] 1.3 10*3/uL High 0.2 - 0.8 K/uL [place] Monocytes/100 WBC (Bld) 8.3 % [place] Neutrophils Absolute 11.1 K/uL High 1.4 - 6 .5 K/uL [place] Neutrophils/100 WBC (Bld) 71.4 % [place] Platelets (Bld) [#/Vol] 375 10*3/uL 130 - 400 K/uL [place] RBC (Bld) [#/Vol] 3.57 10*6/uL Low [place] WBC (Bld) [#/Vol] 15.5 10*3/uL High 4.8 - 10.8 K/uL [place] CBC With Platelet and Differ entialon 11-17-2018 Basophils (Bld) [#/Vol] 0.1 10*3/uL Normal 0.0-0.2 [facility] Comment on above: Performed By: #### C MP #### [facility] [address] [place] [address] Basophils/100 WBC (Bld) 0.7 % Normal [facility] Comment on above: Performed By: #### C MP #### [facility] [address] [place] [address] Eosinophils (Bld) [#/Vol] 0.4 10*3/uL Normal 0.0-0.7 [facility] Comment on above: Performed By: #### C MP #### [facility] [address] [place] [address] Eosinophils/100 WBC (Bld) 2.8 % Normal [facility] Comment on above: Performed By: #### C MP #### [facility] [address] [place] [address] Erythrocyte distribution width (RBC) [Ratio] 14.2 % Normal 11.5-14.5 [facility] Comment on above: Performed By: #### C MP #### [facility] [address] [place] [address] Hematocrit (Bld) [Volume fraction] 32.3 % Low 37.0-47.0 [facility] Comment on above: Performed By: #### C MP #### [facility] [address] [place] [address] Hemoglobin (Bld) [Mass/Vol] 10.8 g/dL Low 12.0-16.0 [facility] Comment on above: Performed By: #### C MP #### [facility] [address] [place] [address] Lymphocytes (Bld) [#/Vol] 2.6 10*3/uL Normal 1.0-4.8 [facility] Comment on above: Performed By: #### C MP #### [facility] [address] [place] [address] Lymphocytes/100 WBC (Bld) 16.8 % Normal [facility] Comment on above: Performed By: #### C MP #### [facility] [address] [place] [address] MCH (RBC) [Entitic mass] 30.3 pg Normal 27.0-31.3 [facility] Comment on above: Performed By: #### C MP #### [facility] [address] [place] [address] MCHC (RBC) [Mass/Vol] 33.4 % Normal 33.0-37.0 [facility] Comment on above: Performed By: #### C MP #### [facility] [address] [place] [address] MCV (RBC) [Entitic vol] 90.5 fL Normal 82.0-100.0 [facility] Comment on above: Performed By: #### C MP #### [facility] [address] [place] [address] Monocytes (Bld) [#/Vol] 1.3 10*3/uL Critically high 0.2-0. 8 [facility] Comment on above: Performed By: #### C MP #### [facility] [address] [place] [address] Monocytes/100 WBC (Bld) 8.3 % Normal [facility] Comment on above: Performed By: #### C MP #### [facility] [address] [place] [address] Neutrophils (Bld) [#/Vol] 11.1 10*3/uL Critically high 1.4-6.5 [facility] Comment on above: Performed By: #### C MP #### [facility] [address] [place] [address] Neutrophils/100 WBC (Bld) 71.4 % Normal [facility] Comment on above: Performed By: #### C MP #### [facility] [address] [place] [address] Platelets (Bld) [#/Vol] 375 10*3/uL Normal 130-400 [facility] Comment on above: Performed By: #### C MP #### [facility] [address] [place] [address] RBC (Bld) [#/Vol] 3.57 10*6/uL Low 4.20-5.40 [facility] Comment on above: Performed By: #### C MP #### [facility] [address] [place] [address] WBC (Bld) [#/Vol] 15.5 10*3/uL Critically high 4.8-10.8 [facility] Comment on above: Performed By: #### C MP #### [facility] [address] [place] [address] High Sensitivity CRPon 11-17 High Sensitivity CRP 230.1 mg/L Critically high 0.0-5.0 [facility] Comment on above: Performed By: #### C MP #### [facility] [address] [place] [address] High sensitivity CRPon 11-17 CRP High Sensitivity 230.1 mg/L High 0 - 5 mg/L [place] Interpretation and review of laboratory results Abnormal [place] Sedimentation Rateon 2 019 Sedimentation Rate 50 mm Critically high 0-30 [facility] Comment on above: Performed By: #### C MP #### [facility] [address] [place] [address] Interpretation and review of laboratory results Abnormal [place] Sed Rate 50 mm High 0 - 30 mm [place] DUP LOWER EXTREMITIES VAUGHN ATERAL VENOUSon 11-17-2018 NO DVT IDENTIFIED IN EITHER LOWER EXTREMITY. [place], [place] Joseph, Chpo Incoming Radiant Results From [facility] - 11/17/2018 8:05 AM EDT US DUP [...] NO DVT IDENTIFIED IN EITHER LOWER EXTREMITY. [place] DUP LOWER EXTREMITIES BILATERAL VENOUS : 11/16/2018 CLINICAL HISTORY: LEG SWELLING, PAIN, DVT SUSPECTED . COMPARISON: None available. Grayscale, compression, color and waveform Doppler analysis of both lower extremity deep venous systems was performed with augmentation. FINDINGS: There is no deep venous thrombosis, abnormal masses, fluid collections or other findings of concern identified within either lower extremity. [place] Urine Cultureon 11-17-2018 Bacteria identified Cx Nom (U) No growth 24 hours [place], [place] ORDERED BY: ADDY COKER SOURCE: Urine Clean Catch COLLECTED: 11/15/18 19:05 ANTIBIOTICS AT DI.: RECEIVED : 11/15/18 19:05 [place] CBC With Platelet and Differ entialon 11-16-2018 Neutrophils (Bld) [#/Vol] 15.5 10*3/uL Critically high 1.4-6.5 [facility] Comment on above: Performed By: #### P TT #### [facility] [address] [place] [address] Basophils (Bld) [#/Vol] 0.2 10*3/uL Normal 0.0-0.2 [place] Comment on above: Performed By: #### P TT #### [facility] [address] [place] [address] Basophils/100 WBC (Bld) 0.9 % Normal [place], [place] Comment on above: Performed By: #### P TT #### [facility] [address] [place] [address] Eosinophils (Bld) [#/Vol] 0.1 10*3/uL Normal 0.0-0.7 [place] Comment on above: Performed By: #### P TT #### [facility] [address] [place] [address] Eosinophils/100 WBC (Bld) 0.8 % Normal [place] Comment on above: Performed By: #### P TT #### [facility] [address] [place] [address] Erythrocyte distribution width (RBC) [Ratio] 14.4 % Normal 11.5-14.5 [place] Comment on above: Performed By: #### P TT #### [facility] [address] [place] [address] Hematocrit (Bld) [Volume fraction] 33.4 % Low 37.0-47.0 [place] Comment on above: Performed By: #### P TT #### [facility] [address] [place] [address] Hemoglobin (Bld) [Mass/Vol] 11.0 g/dL Low 12.0-16.0 [place] Comment on above: Performed By: #### P TT #### [facility] [address] [place] [address] Lymphocytes (Bld) [#/Vol] 1.5 10*3/uL Normal 1.0-4.8 [place] Comment on above: Performed By: #### P TT #### [facility] [address] [place] [address] Lymphocytes/100 WBC (Bld) 7.9 % Normal [place] Comment on above: Performed By: #### P TT #### [facility] [address] [place] [address] MCH (RBC) [Entitic mass] 29.4 pg Normal 27.0-31.3 [place] Comment on above: Performed By: #### P TT #### [facility] [address] [place] [address] MCHC (RBC) [Mass/Vol] 32.9 % Low 33.0-37.0 [place] Comment on above: Performed By: #### P TT #### [facility] [address] [place] [address] MCV (RBC) [Entitic vol] 89.4 fL Normal 82.0-100.0 [place], [place] Comment on above: Performed By: #### P TT #### [facility] [address] [place] [address] Monocytes (Bld) [#/Vol] 1.3 10*3/uL Critically high 0.2-0. 8 [place] Comment on above: Performed By: #### P TT #### [facility] [address] [place] [address] Monocytes/100 WBC (Bld) 7.1 % Normal [place], [place] Comment on above: Performed By: #### P TT #### [facility] [address] [place] [address] Neutrophils/100 WBC (Bld) 83.3 % Normal [place] Comment on above: Performed By: #### P TT #### [facility] [address] [place] [address] Platelets (Bld) [#/Vol] 304 10*3/uL Normal 130-400 [place] Comment on above: Performed By: #### P TT #### [facility] [address] [place] [address] RBC (Bld) [#/Vol] 3.74 10*6/uL Low 4.20-5.40 [place] Comment on above: Performed By: #### P TT #### [facility] [address] [facility] [address] WBC (Bld) [#/Vol] 18.6 10*3/uL Critically high 4.8-10.8 [place] Comment on above: Performed By: #### P TT #### [facility] [address] [facility] [address] CBC auto differentialon 10-22 Interpretation and review of laboratory results Abnormal [place] Neutrophils Absolute 15.5 K/uL High 1.4 - 6 .5 K/uL [place] ECHO Complete 2D W Doppler W Coloron 11-16-2018 Transthoracic Echocardiography Report (TTE) Demographics Patient Name MERCY GANDHI Gender Female Patient Number [id number] Race Unknown Ethnicity Visit Number [id number] Room Number R238 Corporate ID Date of Study 11/16/2018 Referring Physician Niki Vazquez DO Number Date of 1935 [employer] [address] Age 83 year(s) Interpreting [facility] Physician Cardiology Cain Quinonez MD Procedure Type [...] cm LVOT Diameter: 1.65 cm [facility]- [place], [place] Joseph, Chpo Incoming Cardiovascular Results From 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) Interpreting [facility] Physician Cardiology Cain Quinonez MD Procedure Type [...] Root: 2.35 cm LVOT Diameter: 1.65 cm [place] Microscopic Urinalysison Bacteria, UA Negative /HPF [place] Epi Cells 3-5 /HPF [place] Interpretation and review of laboratory results Abnormal [place] RBC (U) [#/Vol] 3-5 Abnormal [place] Renal Epithelial, Urine 0-2 Abnormal /HPF [place] WBC, UA None seen [place] CAROTID ARTERY BILATERALo n 11-16-2018 [...] Damped resistive CCA decreased decreased resistive CCA [place] Joseph, Chpo Incoming Radiant Results From [facility] - 11/16/2018 10:40 AM EDT Patient : [...] CCA decreased decreased resistive CCA [facility] Patient 5 : 1935 Age: 83 years [...] and noncalcified plaque bilateral carotid arterial systems [place] US DUP LOWER EXTREMITIES VAUGHN ATERAL [...] De Souza MD 11/17/[address] [facility] Urine Microscopicon 11-17-19 19 Bacteria LM.HPF (Urine sed) [#/Area] Negative Normal [facility] Comment on above: Performed By: #### P TT #### [facility] [address] [place] [address] Epithelial cells LM Ql (Urine sed) 3-[address] [facility] Comment on above: Performed By: #### P TT #### [facility] [address] [place] [address] RBC (U) [#/Vol] 3-5 Abnormal 0-2 [facility] Comment on above: Performed By: #### P TT #### [facility] [address] [place] [address] Urine Renal Epithelial 0-2 Abnormal Me [facility] Comment on above: Performed By: #### P TT #### [facility] [address] [place] [address] WBC (U) [#/Vol] None seen Normal 0-5 [facility] Comment on above: Performed By: #### P TT #### [facility] [address] [place] [address] XR CHEST PORTABLEon 11-17-19 19 Joseph, Chpo Incoming Radiant Results From [place] - 11/16/2018 10:21 AM EDT EXAMINATION: XR CHEST PORTABLE CLINICAL HISTORY: fever . History of back surgery. COMPARISONS: None available. FINDINGS: Single AP portable view the chest obtained on November 15, 2018 at 2124 hours. The heart is not enlarged. Mediastinum is not widened. Calcified aorta is not dilated. Lungs are clear. The chest wall is unremarkable. CONCLUSION: NO ACUTE PROCESS [place] EXAMINATION: XR CHES T PORTABLE CLINICAL HISTORY: fever . History of back surgery. COMPARISONS: None available. FINDINGS: Single AP portable view the chest obtained on November 15, 2018 at 2124 hours. The heart is not enlarged. Mediastinum is not widened. Calcified aorta is not dilated. Lungs are clear. The chest wall is unremarkable. CONCLUSION: NO ACUTE PROCESS [place] CBC Auto Differentialon 10-22 Anisocytosis Ql (Bld) 1+ [place] Bands Relative 4 % Low 5 - 11 % [place] Basophils (Bld) [#/Vol] 0.0 10*3/uL 0 - 0.2 K/uL [place] Basophils/100 WBC (Bld) 0.6 % [place] Eosinophils (Bld) [#/Vol] 0.0 10*3/uL 0 - 0.7 K/uL [place] Eosinophils/100 WBC (Bld) 0.9 % [place] Erythrocyte distribution width (RBC) [Ratio] 14.6 % High 11.5 - 14.5 % [place] Hematocrit (Bld) [Volume fraction] 33.3 % Low 37 - 47 % [place] Hemoglobin (Bld) [Mass/Vol] 10.9 g/dL Low 12 - 16 g/[place], [place] Interpretation and review of laboratory results Abnormal [place] Lymphocytes (Bld) [#/Vol] 3.5 10*3/uL 1 - 4.8 K/uL [place] Lymphocytes/100 WBC (Bld) 17.0 % [place] MCH (RBC) [Entitic mass] 29.8 pg 27 - 31.3 pg [place] MCHC (RBC) [Mass/Vol] 32.9 % Low 33 - 37 % [place] MCV (RBC) [Entitic vol] 90.7 fL 82 - 100 fL [place] Microcytes 1+ [place] Monocytes (Bld) [#/Vol] 0.0 10*3/uL Low 0.2 - 0.8 K/uL [place] Monocytes/100 WBC (Bld) 7.7 % [place] Neutrophils Absolute 17.3 K/uL High 1.4 - 6 .5 K/uL [place] Neutrophils/100 WBC (Bld) 79.0 % [place] PLATELET SLIDE REVIEW Normal [place] Platelets (Bld) [#/Vol] 315 10*3/uL 130 - 400 K/uL [place] RBC (Bld) [#/Vol] 3.67 10*6/uL Low [place] WBC (Bld) [#/Vol] 20.8 10*3/uL High 4.8 - 10.8 K/uL [place] CBC With Platelet No Differe ntialon 11-15-2018 Erythrocyte distribution width (RBC) [Ratio] 14.5 % Normal 11.5-14.5 [facility] Comment on above: Performed By: #### P TT #### [facility] [address] [place] [address] Hematocrit (Bld) [Volume fraction] 36.9 % Low 37.0-47.0 [facility] Comment on above: Performed By: #### P TT #### [facility] [address] [place] [address] Hemoglobin (Bld) [Mass/Vol] 11.9 g/dL Low 12.0-16.0 [facility] Comment on above: Performed By: #### P TT #### [facility] [address] [place] [address] MCH (RBC) [Entitic mass] 29.4 pg Normal 27.0-31.3 [facility] Comment on above: Performed By: #### P TT #### [facility] [address] [place] [address] MCHC (RBC) [Mass/Vol] 32.3 % Low 33.0-37.0 [facility] Comment on above: Performed By: #### P TT #### [facility] [address] [place] [address] MCV (RBC) [Entitic vol] 91.1 fL Normal 82.0-100.0 [facility] Comment on above: Performed By: #### P TT #### [facility] [address] [place] [address] Platelets (Bld) [#/Vol] 341 10*3/uL Normal 130-400 [facility] Comment on above: Performed By: #### P TT #### [facility] [address] [place] [address] RBC (Bld) [#/Vol] 4.05 10*6/uL Low 4.20-5.40 [facility] Comment on above: Performed By: #### P TT #### [facility] [address] [place] [address] WBC (Bld) [#/Vol] 19.8 10*3/uL Critically high 4.8-10.8 [facility] Comment on above: Performed By: #### P TT #### [facility] [address] [place] [address] CBC With Platelet and Differ entialon 11-15-2018 Anisocytosis Ql (Bld) 1+ Normal [facility] Comment on above: Performed By: #### P TT #### [facility] [address] [place] [address] Bands 4 % Low 5-11 [facility] Comment on above: Performed By: #### P TT #### [facility] [address] [place] [address] Basophils (Bld) [#/Vol] 0.0 10*3/uL Normal 0.0-0.2 [facility] Comment on above: Performed By: #### P TT #### [facility] [address] [place] [address] Basophils/100 WBC (Bld) 0.6 % Normal [facility] Comment on above: Performed By: #### P TT #### [facility] [address] [place] [address] Eosinophils (Bld) [#/Vol] 0.0 10*3/uL Normal 0.0-0.7 [facility] Comment on above: Performed By: #### P TT #### [facility] [address] [place] [address] Eosinophils/100 WBC (Bld) 0.9 % Normal [facility] Comment on above: Performed By: #### P TT #### [facility] [address] [place] [address] Lymphocytes (Bld) [#/Vol] 3.5 10*3/uL Normal 1.0-4.8 [facility] Comment on above: Performed By: #### P TT #### [facility] [address] [place] [address] Lymphocytes/100 WBC (Bld) 17.0 % Normal [facility] Comment on above: Performed By: #### P TT #### [facility] [address] [place] [address] Microcytic 1+ Normal [facility] Comment on above: Performed By: #### P TT #### [facility] [address] [place] [address] Monocytes (Bld) [#/Vol] 0.0 10*3/uL Low 0.2-0.8 [facility] Comment on above: Performed By: #### P TT #### [facility] [address] [place] [address] Monocytes/100 WBC (Bld) 7.7 % Normal [facility] Comment on above: Performed By: #### P TT #### [facility] [address] [place] [address] Neutrophils (Bld) [#/Vol] 17.3 10*3/uL Critically high 1.4-6.5 [facility] Comment on above: Performed By: #### P TT #### [facility] [address] [place] [address] Neutrophils/100 WBC (Bld) 79.0 % Normal [facility] Comment on above: Performed By: #### P TT #### [facility] [address] [place] [address] Platelet Slide Review Normal Normal [facility] Comment on above: Performed By: #### P TT #### [facility] [address] [place] [address] Erythrocyte distribution width (RBC) [Ratio] 14.6 % Critically high 11.5-14.5 [facility] Comment on above: Performed By: #### P TT #### [facility] [address] [place] [address] Hematocrit (Bld) [Volume fraction] 33.3 % Low 37.0-47.0 [facility] Comment on above: Performed By: #### P TT #### [facility] [address] [place] [address] Hemoglobin (Bld) [Mass/Vol] 10.9 g/dL Low 12.0-16.0 [facility] Comment on above: Performed By: #### P TT #### [facility] [address] [place] [address] MCH (RBC) [Entitic mass] 29.8 pg Normal 27.0-31.3 [facility] Comment on above: Performed By: #### P TT #### [facility] [address] [place] [address] MCHC (RBC) [Mass/Vol] 32.9 % Low 33.0-37.0 [facility] Comment on above: Performed By: #### P TT #### [facility] [address] [place] [address] MCV (RBC) [Entitic vol] 90.7 fL Normal 82.0-100.0 [facility] Comment on above: Performed By: #### P TT #### [facility] [address] [place] [address] Platelets (Bld) [#/Vol] 315 10*3/uL Normal 130-400 [facility] Comment on above: Performed By: #### P TT #### [facility] [address] [place] [address] RBC (Bld) [#/Vol] 3.67 10*6/uL Low 4.20-5.40 [facility] Comment on above: Performed By: #### P TT #### [facility] [address] [place] [address] WBC (Bld) [#/Vol] 20.8 10*3/uL Critically high 4.8-10.8 [facility] Comment on above: Performed By: #### P TT #### [facility] [address] [place] [address] Comprehensive Metabolic Pane l reflex Mgon 11-15-2018 Albumin [Mass/Vol] 3.3 g/dL Low 3.5-4.6 [facility] Comment on above: Performed By: #### P TT #### [facility] [address] [place] [address] ALP [Catalytic activity/Vol] 71 U/L Normal 40-130 [facility] Comment on above: Performed By: #### P TT #### [facility] [address] [place] [address] ALT [Catalytic activity/Vol] 12 U/L Normal 0-33 [facility] Comment on above: Performed By: #### P TT #### [facility] [address] [place] [address] Anion gap [Moles/Vol] 11 mmol/L Normal 9-15 [facility] Comment on above: Performed By: #### P TT #### [facility] [address] [place] [address] AST [Catalytic activity/Vol] 28 U/L Normal 0-35 [facility] Comment on above: Performed By: #### P TT #### [facility] [address] [place] [address] Bilirubin [Mass/Vol] 0.4 mg/dL Normal 0.2-0.7 [facility] Comment on above: Performed By: #### P TT #### [facility] [address] [place] [address] Calcium [Mass/Vol] 9.1 mg/dL Normal 8.5-9.9 [facility] Comment on above: Performed By: #### P TT #### [facility] [address] [place] [address] Chloride [Moles/Vol] 98 mmol/L Normal 95-107 [facility] Comment on above: Performed By: #### P TT #### [facility] [address] [place] [address] CO2 [Moles/Vol] 27 mmol/L Normal 20-31 [facility] Comment on above: Performed By: #### P TT #### [facility] [address] [place] [address] Creatinine [Mass/Vol] 0.59 mg/dL Normal 0.50-0.90 [facility] Comment on above: Performed By: #### P TT #### [facility] [address] [place] [address] GFR/1.73 sq M predicted among blacks MDRD (S/P/Bld) [Vol rate/Area] mL/min/{1.73_m2} Normal >60 [facility] Comment on above: Result Comment: >60 mL/min/1.73m2 EGFR, calc. for ages 18 and older using the MDRD formula (not corrected for weight), is valid for stable renal function. Performed By: #### P TT #### [facility] [address] [place] [address] GFR/1.73 sq M.predicted MDRD (S/P/Bld) [Vol rate/Area] mL/min/{1.73_m2} Normal >60 [facility] Comment on above: Result Comment: >60 mL/min/1.73m2 EGFR, calc. for ages 18 and older using the MDRD formula (not corrected for weight), is valid for stable renal function. Performed By: #### P TT #### [facility] [address] [place] [address] Globulin (S) [Mass/Vol] 3.2 g/dL Normal 2.3-3.5 [facility] Comment on above: Performed By: #### P TT #### [facility] [address] [place] [address] Glucose [Mass/Vol] 123 mg/dL Critically high 70-99 [facility] Comment on above: Performed By: #### P TT #### [facility] [address] [place] [address] Potassium reflex Mg 3.8 mEq/L Normal 3.4-4.9 [facility] Comment on above: Performed By: #### P TT #### [facility] [address] [place] [address] Protein [Mass/Vol] 6.5 g/dL Normal 6.3-8.0 [facility] Comment on above: Performed By: #### P TT #### [facility] [address] [place] [address] Sodium [Moles/Vol] 136 mmol/L Normal 135-144 [facility] Comment on above: Performed By: #### P TT #### [facility] [address] [place] [address] Urea nitrogen [Mass/Vol] 6 mg/dL Low 8-23 [facility] Comment on above: Performed By: #### P TT #### [facility] [address] [place] [address] Culture, Blood 2on 9 Culture, Blood 2 ORDERED BY: ADDY COKER SOURCE: Blood COLLECTED: 11/15/18 16:37 ANTIBIOTICS AT ID.: RECEIVED : 11/15/18 16:42 Culture, Blood 2 FINAL 11/20/18 18:15 No growth after 5 days of incubation. Normal [facility] Comment on above: Performed By: #### C MP #### [facility] [address] [place] [address] Culture, Urineon 11-15-2018 Culture, Urine ORDERED BY: ADDY COKER SOURCE: Urine Clean Catch COLLECTED: 11/15/18 19:05 ANTIBIOTICS AT DI.: RECEIVED : 11/15/18 19:05 Culture, Urine FINAL 11/17/18 07:28 No growth [address] [facility] Comment on above: Performed By: #### C MP #### [facility] [address] [place] [address] URINE RT REFLEX TO CULTUREon 11-15-2018 Bilirubin Urine Negative Negative [place], [place] Blood, Urine TRACE Abnormal Negative [place] Clarity, UA Clear Clear [place] Color, UA Yellow Straw/Yello w [place] Glucose, Ur Negative Negative mg/dL [place] Interpretation and review of laboratory results Abnormal [place] Ketones Ql (U) Negative Negative mg/dL [place] Leukocyte esterase Test strip Ql (U) Negative Negative [place] Nitrite, Urine Negative Negative [place] pH, UA 7.0 [place] Protein (U) [Mass/Vol] 30 mg/dL Abnormal Negative [place], [place] Specific [place], UA 1.014 [place], [place] Urine Reflex to Culture YES [place] Urobilinogen, Urine 0.2 <2.0 E.U./dL [place] CAROTID ARTERY BILATERALo n 11-15-2018 [...] Mohsen Childers MD 11/16/[address] [facility] Urinalysis, reflex to cultur kendall 11-15-2018 Bilirubin Ql (U) Negative Normal Negative [facility] Comment on above: Performed By: #### P TT #### [facility] [address] [place] [address] Clarity (U) Clear Normal Clear [facility] Comment on above: Performed By: #### P TT #### [facility] [address] [place] [address] Color (U) Yellow Normal Straw/Mitchell [facility] Comment on above: Performed By: #### P TT #### [facility] [address] [place] [address] Glucose Ql (U) Negative Normal Negative [facility] Comment on above: Performed By: #### P TT #### [facility] [address] [place] [address] Hemoglobin Ql (U) TRACE Abnormal Negative [facility] Comment on above: Performed By: #### P TT #### [facility] [address] [place] [address] Ketones Ql (U) Negative Normal Negative [facility] Comment on above: Performed By: #### P TT #### [facility] [address] [place] [address] Leukocyte esterase Test strip Ql (U) Negative Normal Negative [facility] Comment on above: Performed By: #### P TT #### [facility] [address] [place] [address] Nitrite Ql (U) Negative Normal Negative [facility] Comment on above: Performed By: #### P TT #### [facility] [address] [place] [address] pH (U) 7.0 [pH] Normal 5.0-9.0 [facility] Comment on above: Performed By: #### P TT #### [facility] [address] [place] [address] Protein Ql (U) 30 mg/dL Abnormal Negative [facility] Comment on above: Performed By: #### P TT #### [facility] [address] [place] [address] Specific gravity (U) [Rel density] 1.014 Normal 1.005-1.03 [facility] Comment on above: Performed By: #### P TT #### [facility] [address] [place] [address] Urine Reflexed to Culture YES Normal [facility] Comment on above: Performed By: #### P TT #### [facility] [address] [place] [address] Urobilinogen Qn (U) 0.2 {Juan'U}/dL Normal < 2.0 [facility] Comment on above: Performed By: #### P TT #### [facility] [address] [place] [address] XR CHEST PORTABLEon 11-16-19 19 XR CHEST [...] Pearl Varghese MD 11/16/[address] [facility] Basic Metabolic Panel Reflex Mgon 11-14-2018 Anion gap [Moles/Vol] 10 mmol/L Normal 9-15 [facility] Comment on above: Performed By: #### P T #### [facility] [address] [place] [address] Calcium [Mass/Vol] 8.4 mg/dL Low 8.5-9.9 [facility] Comment on above: Performed By: #### P T #### [facility] [address] [place] [address] Chloride [Moles/Vol] 100 mmol/L Normal 95-107 [facility] Comment on above: Performed By: #### P T #### [facility] [address] [place] [address] CO2 [Moles/Vol] 25 mmol/L Normal 20-31 [facility] Comment on above: Performed By: #### P T #### [facility] [address] [place] [address] Creatinine [Mass/Vol] 0.66 mg/dL Normal 0.50-0.90 [facility] Comment on above: Performed By: #### P T #### [facility] [address] [place] [address] GFR/1.73 sq M predicted among blacks MDRD (S/P/Bld) [Vol rate/Area] mL/min/{1.73_m2} Normal >60 [facility] Comment on above: Result Comment: >60 mL/min/1.73m2 EGFR, calc. for ages 18 and older using the MDRD formula (not corrected for weight), is valid for stable renal function. Performed By: #### P T #### [facility] [address] [place] [address] GFR/1.73 sq M.predicted MDRD (S/P/Bld) [Vol rate/Area] mL/min/{1.73_m2} Normal >60 [facility] Comment on above: Result Comment: >60 mL/min/1.73m2 EGFR, calc. for ages 18 and older using the MDRD formula (not corrected for weight), is valid for stable renal function. Performed By: #### P T #### [facility] [address] [place] [address] Glucose [Mass/Vol] 144 mg/dL Critically high 70-99 [facility] Comment on above: Performed By: #### P T #### [facility] [address] [place] [address] Potassium reflex Mg 4.1 mEq/L Normal 3.4-4.9 [facility] Comment on above: Performed By: #### P T #### [facility] [address] [place] [address] Sodium [Moles/Vol] 135 mmol/L Normal 135-144 [facility] Comment on above: Performed By: #### P T #### [facility] [address] [place] [address] Urea nitrogen [Mass/Vol] 6 mg/dL Low 8-23 [facility] Comment on above: Performed By: #### P T #### [facility] [address] [place] [address] CBC With Platelet and Differ entialon 11-14-2018 Basophils (Bld) [#/Vol] 0.1 10*3/uL Normal 0.0-0.2 [facility] Comment on above: Performed By: #### P T #### [facility] [address] [place] [address] Basophils/100 WBC (Bld) 0.5 % Normal [facility] Comment on above: Performed By: #### P T #### [facility] [address] [place] [address] Eosinophils (Bld) [#/Vol] 0.1 10*3/uL Normal 0.0-0.7 [facility] Comment on above: Performed By: #### P T #### [facility] [address] [place] [address] Eosinophils/100 WBC (Bld) 0.8 % Normal [facility] Comment on above: Performed By: #### P T #### [facility] [address] [place] [address] Erythrocyte distribution width (RBC) [Ratio] 14.1 % Normal 11.5-14.5 [facility] Comment on above: Performed By: #### P T #### [facility] [address] [place] [address] Hematocrit (Bld) [Volume fraction] 35.4 % Low 37.0-47.0 [facility] Comment on above: Performed By: #### P T #### [facility] [address] [place] [address] Hemoglobin (Bld) [Mass/Vol] 11.7 g/dL Low 12.0-16.0 [facility] Comment on above: Performed By: #### P T #### [facility] [address] [place] [address] Lymphocytes (Bld) [#/Vol] 2.7 10*3/uL Normal 1.0-4.8 [facility] Comment on above: Performed By: #### P T #### [facility] [address] [place] [address] Lymphocytes/100 WBC (Bld) 15.7 % Normal [facility] Comment on above: Performed By: #### P T #### [facility] [address] [place] [address] MCH (RBC) [Entitic mass] 29.7 pg Normal 27.0-31.3 [facility] Comment on above: Performed By: #### P T #### [facility] [address] [place] [address] MCHC (RBC) [Mass/Vol] 33.1 % Normal 33.0-37.0 [facility] Comment on above: Performed By: #### P T #### [facility] [address] [place] [address] MCV (RBC) [Entitic vol] 89.6 fL Normal 82.0-100.0 [facility] Comment on above: Performed By: #### P T #### [facility] [address] [place] [address] Monocytes (Bld) [#/Vol] 1.4 10*3/uL Critically high 0.2-0. 8 [facility] Comment on above: Performed By: #### P T #### [facility] [address] [place] [address] Monocytes/100 WBC (Bld) 7.9 % Normal [facility] Comment on above: Performed By: #### P T #### [facility] [address] [place] [address] Neutrophils (Bld) [#/Vol] 12.8 10*3/uL Critically high 1.4-6.5 [facility] Comment on above: Performed By: #### P T #### [facility] [address] [place] [address] Neutrophils/100 WBC (Bld) 75.1 % Normal [facility] Comment on above: Performed By: #### P T #### [facility] [address] [place] [address] Platelets (Bld) [#/Vol] 345 10*3/uL Normal 130-400 [facility] Comment on above: Performed By: #### P T #### [facility] [address] [place] [address] RBC (Bld) [#/Vol] 3.95 10*6/uL Low 4.20-5.40 [facility] Comment on above: Performed By: #### P T #### [facility] [address] [place] [address] WBC (Bld) [#/Vol] 17.0 10*3/uL Critically high 4.8-10.8 [facility] Comment on above: Performed By: #### P T #### [facility] [address] [place] [address] POCT Glucoseon 11-14-2018 Glucose [Mass/Vol] 116 mg/dL Critically high 60-115 [facility] Comment on above: Performed By: #### P T #### [facility] [address] [place] [address] POC Performed on ACCU-CHEK Normal [facility] Comment on above: Performed By: #### P T #### [facility] [address] [place] [address] XR LUMBAR SPINE (2-3 VIEWS)o n 11-14-2018 [...] Mohsen Childers MD 11/14/[address] [facility] Basic Metabolic Panel Reflex Mgon 11-13-2018 Anion gap [Moles/Vol] 13 mmol/L Normal 9-15 [facility] Comment on above: Performed By: #### P T #### [facility] [address] [place] [address] Calcium [Mass/Vol] 9.0 mg/dL Normal 8.5-9.9 [facility] Comment on above: Performed By: #### P T #### [facility] [address] [place] [address] Chloride [Moles/Vol] 101 mmol/L Normal 95-107 [facility] Comment on above: Performed By: #### P T #### [facility] [address] [place] [address] CO2 [Moles/Vol] 24 mmol/L Normal 20-31 [facility] Comment on above: Performed By: #### P T #### [facility] [address] [place] [address] Creatinine [Mass/Vol] 0.62 mg/dL Normal 0.50-0.90 [facility] Comment on above: Performed By: #### P T #### [facility] [address] [place] [address] GFR/1.73 sq M predicted among blacks MDRD (S/P/Bld) [Vol rate/Area] mL/min/{1.73_m2} Normal >60 [facility] [facility] Comment on above: Result Comment: >60 mL/min/1.73m2 EGFR, calc. for ages 18 and older using the MDRD formula (not corrected for weight), is valid for stable renal function. Performed By: #### P T #### [facility] [address] [place] [address] GFR/1.73 sq M.predicted MDRD (S/P/Bld) [Vol rate/Area] mL/min/{1.73_m2} Normal >60 [facility] Comment on above: Result Comment: >60 mL/min/1.73m2 EGFR, calc. for ages 18 and older using the MDRD formula (not corrected for weight), is valid for stable renal function. Performed By: #### P T #### [facility] [address] [place] [address] Glucose [Mass/Vol] 136 mg/dL Critically high 70-99 [facility] Comment on above: Performed By: #### P T #### [facility] [address] [place] [address] Potassium reflex Mg 3.6 mEq/L Normal 3.4-4.9 [facility] Comment on above: Performed By: #### P T #### [facility] [address] [place] [address] Sodium [Moles/Vol] 138 mmol/L Normal 135-144 [facility] Comment on above: Performed By: #### P T #### [facility] [address] [place] [address] Urea nitrogen [Mass/Vol] 7 mg/dL Low 8-23 [facility] Comment on above: Performed By: #### P T #### [facility] [address] [place] [address] CBC With Platelet No Differe ntialon 11-13-2018 Erythrocyte distribution width (RBC) [Ratio] 14.2 % Normal 11.5-14.5 [facility] Comment on above: Performed By: #### P T #### [facility] [address] [place] [address] Hematocrit (Bld) [Volume fraction] 40.3 % Normal 37.0-47.0 [facility] Comment on above: Performed By: #### P T #### [facility] [address] [place] [address] Hemoglobin (Bld) [Mass/Vol] 13.1 g/dL Normal 12.0-16.0 [facility] Comment on above: Performed By: #### P T #### [facility] [address] [place] [address] MCH (RBC) [Entitic mass] 29.1 pg Normal 27.0-31.3 [facility] Comment on above: Performed By: #### P T #### [facility] [address] [place] [address] MCHC (RBC) [Mass/Vol] 32.4 % Low 33.0-37.0 [facility] Comment on above: Performed By: #### P T #### [facility] [address] [place] [address] MCV (RBC) [Entitic vol] 89.9 fL Normal 82.0-100.0 [facility] Comment on above: Performed By: #### P T #### [facility] [address] [place] [address] Platelets (Bld) [#/Vol] 394 10*3/uL Normal 130-400 [facility] Comment on above: Performed By: #### P T #### [facility] [address] [place] [address] RBC (Bld) [#/Vol] 4.48 10*6/uL Normal 4.20-5.40 [facility] Comment on above: Performed By: #### P T #### [facility] [address] [place] [address] WBC (Bld) [#/Vol] 11.8 10*3/uL Critically high 4.8-10.8 [facility] Comment on above: Performed By: #### P T #### [facility] [address] [place] [id number] Culture, MRSA Screenon 11-13 Culture, MRSA Screen ORDERED BY: BRENNAN HERRON SOURCE: Nares COLLECTED: 11/13/18 09:29 ANTIBIOTICS AT DI.: RECEIVED : 11/13/18 09:29 Culture, MRSA Screen FINAL 11/14/18 08:02 No MRSA isolated Normal [facility] Comment on above: Performed By: #### P T #### [facility] [address] [place] [id number] FLUORO FOR SURGICAL PROCEDUR ESon 11-13-2018 FLUORO [...] by: Mohsen Childers MD Signed by: Mohsen Childres MD 11/13/[address] [facility] Surgical Specimenon 11-14-19 19 Surgical Specimen [facility] [address] [place], [place] [address] [id number] FINAL SURGICAL PATHOLOGY REPORT Patient Name: HIRAM MADRID Accession No: [id number] Age Sex: 1935 Location: [facility] [id number] Account No: [id number] Collected: 11/13/2018 Med Rec No: [id number] Received: 11/14/2018 Attend Phys: LENNY CORRAL Completed: [...] two cassettes after brief decalcification. UVALDO/NIKKY CPT: 01068 X1 [id number] X1 STANLEY GRAFF M.D. 11/15/2018 Electronically signed out by Page [address] [facility] Comment on above: Performed By: #### P TT #### [facility] [address] [place] [address] Type and Screen Capture 3 sc rn cellon 11-13-2018 Type and Screen Capture 3 scrn cell PATIENT: MERCY GANDHI LOC: ERICK,ORKAMRONOL,NON BILL# : [id number] : 1935 SEX: F ORDERED BY: GOPAL AMIN ORDERED : 11/13/2018 08:10 COLLECTED: 11/13/2018 09:24 ORDER : [id number] RECEIVED : 11/13/2018 09:24 TEST NAME RESULT UNITS RANGES ABN FL ST ABORH Capture A POS F Antibody 3 Cell Scrn Captu NEG F Normal [facility] Comment on above: Performed By: #### T S3C #### [facility] [address] [place] [address] XR SPINE ENTIRE (2-3 VIEWS)o n 11-13-2018 [...] Mohsen Childers MD 11/13/[address] [facility] MRI LUMBAR SPINE W WO CONTRA STon [...] UNDERLYING PATHOLOGY OR RECENT INJURY. [facility]- [place], [place] Joseph, Chpo Incoming Radiant Results From [place]/Enable Injections - 11/05/2018 3:07 PM EDT EXAMINATION: MRI [...] UNDERLYING PATHOLOGY OR RECENT INJURY. [facility], [place] MRI LUMBAR SPINE W WO CONTRAST EXAMINATION: [...] Pearl Varghese MD 11/05/[address] [facility] Otheron 11-05-2018 Joseph, Chpo Incoming Radiant Results From [place]/Enable Injections - 11/05/2018 1:21 PM EDT EXAMINATION: XR [...] AND POSTOPERATIVE FINDINGS, WITHOUT ACUTE SUPERIMPOSED ABNORMALITY. [place] EXAMINATION: XR LUMB AR SPINE (MIN [...] AND POSTOPERATIVE FINDINGS, WITHOUT ACUTE SUPERIMPOSED ABNORMALITY. [place] XR CHEST (2 VW)on 11-05-2018 XR [...] Pearl Varghese MD 11/05/[address] [facility] XR LUMBAR SPINE (MIN 4 VIEWS )on [...] Pearl Varghese MD 11/05/[address] [facility] APTTon 11-04-2018 aPTT Coag (Bld) [Time] 27.9 s [facility]- [place], [place] Comment on above: Effective 09/06/2018: Please note methodology and/or reference ranges have changed. aPTT - Heparin Therapeutic Range: 74.0 - 106 seconds C-Reactive Proteinon 11-04- 019 CRP [Mass/Vol] 1.3 mg/L Normal 0.0-5.0 [facility] Comment on above: Performed By: #### C RP #### [facility] [address] [place] [address] CRP [Mass/Vol] 1.3 mg/L 0 - 5 mg/L [place] CBC Auto Differentialon 10-21 Basophils (Bld) [#/Vol] 0.1 10*3/uL 0 - 0.2 K/uL [place] Basophils/100 WBC (Bld) 1.1 % [place], [place] Eosinophils (Bld) [#/Vol] 0.2 10*3/uL 0 - 0.7 K/uL [place] Eosinophils/100 WBC (Bld) 1.3 % [place] Erythrocyte distribution width (RBC) [Ratio] 13.9 % 11.5 - 14.5 % [place] Hematocrit (Bld) [Volume fraction] 41.3 % 37 - 47 % [place] Hemoglobin (Bld) [Mass/Vol] 14.3 g/dL 12 - 16 g/dL [place] Interpretation and review of laboratory results Abnormal [place] Lymphocytes (Bld) [#/Vol] 3.5 10*3/uL 1 - 4.8 K/uL [place] Lymphocytes/100 WBC (Bld) 28.2 % [place] MCH (RBC) [Entitic mass] 30.5 pg 27 - 31.3 pg [place] MCHC (RBC) [Mass/Vol] 34.6 % 33 - 37 % [place], [place] MCV (RBC) [Entitic vol] 88.0 fL 82 - 100 fL [place] Monocytes (Bld) [#/Vol] 0.8 10*3/uL 0.2 - 0.8 K/uL [place] Monocytes/100 WBC (Bld) 6.8 % [place] Neutrophils Absolute 7.7 K/uL High 1.4 - 6 .5 K/uL [place] Neutrophils/100 WBC (Bld) 62.6 % [place] Platelets (Bld) [#/Vol] 435 10*3/uL High 130 - 400 K/uL [place] RBC (Bld) [#/Vol] 4.69 10*6/uL [place] WBC (Bld) [#/Vol] 12.4 10*3/uL High 4.8 - 10.8 K/uL [place] CBC With Platelet and Differ entialon 11-04-2018 Basophils (Bld) [#/Vol] 0.1 10*3/uL Normal 0.0-0.2 [facility] Comment on above: Performed By: #### C BCWD #### [facility] [address] [place] [address] Basophils/100 WBC (Bld) 1.1 % Normal [facility] Comment on above: Performed By: #### C BCWD #### [facility] [address] [place] [address] Eosinophils (Bld) [#/Vol] 0.2 10*3/uL Normal 0.0-0.7 [facility] Comment on above: Performed By: #### C BCWD #### [facility] [address] [place] [address] Eosinophils/100 WBC (Bld) 1.3 % Normal [facility] Comment on above: Performed By: #### C BCWD #### [facility] [address] [place] [address] Erythrocyte distribution width (RBC) [Ratio] 13.9 % Normal 11.5-14.5 [facility] Comment on above: Performed By: #### C BCWD #### [facility] [address] [place] [address] Hematocrit (Bld) [Volume fraction] 41.3 % Normal 37.0-47.0 [facility] Comment on above: Performed By: #### C BCWD #### [facility] [address] [place] [address] Hemoglobin (Bld) [Mass/Vol] 14.3 g/dL Normal 12.0-16.0 [facility] Comment on above: Performed By: #### C BCWD #### [facility] [address] [place] [address] Lymphocytes (Bld) [#/Vol] 3.5 10*3/uL Normal 1.0-4.8 [facility] Comment on above: Performed By: #### C BCWD #### [facility] [address] [place] [address] Lymphocytes/100 WBC (Bld) 28.2 % Normal [facility] Comment on above: Performed By: #### C BCWD #### [facility] [address] [place] [address] MCH (RBC) [Entitic mass] 30.5 pg Normal 27.0-31.3 [facility] Comment on above: Performed By: #### C BCWD #### [facility] [address] [place] [address] MCHC (RBC) [Mass/Vol] 34.6 % Normal 33.0-37.0 [facility] Comment on above: Performed By: #### C BCWD #### [facility] [address] [place] [address] MCV (RBC) [Entitic vol] 88.0 fL Normal 82.0-100.0 [facility] Comment on above: Performed By: #### C BCWD #### [facility] [address] [place] [address] Monocytes (Bld) [#/Vol] 0.8 10*3/uL Normal 0.2-0.8 [facility] Comment on above: Performed By: #### C BCWD #### [facility] [address] [place] [address] Monocytes/100 WBC (Bld) 6.8 % Normal [facility] Comment on above: Performed By: #### C BCWD #### [facility] [address] [place] [address] Neutrophils (Bld) [#/Vol] 7.7 10*3/uL Critically high 1.4-6.5 [facility] Comment on above: Performed By: #### C BCWD #### [facility] [address] [place] [address] Neutrophils/100 WBC (Bld) 62.6 % Normal [facility] Comment on above: Performed By: #### C BCWD #### [facility] [address] [place] [address] Platelets (Bld) [#/Vol] 435 10*3/uL Critically high 130-[address] [facility] Comment on above: Performed By: #### C BCWD #### [facility] [address] [place] [address] RBC (Bld) [#/Vol] 4.69 10*6/uL Normal 4.20-5.40 [facility] Comment on above: Performed By: #### C BCWD #### [facility] [address] [place] [address] WBC (Bld) [#/Vol] 12.4 10*3/uL Critically high 4.8-10.8 [facility] Comment on above: Performed By: #### C BCWD #### [facility] [address] [place] [address] Comprehensive Metabolic Pane bebeto 11-04-2018 Anion gap [Moles/Vol] 14 mmol/L Normal 9-15 [facility] Comment on above: Order Comment: CALL Graf LCED tel. [phone], Potassium results called to and read back by onofre Millan RN, 11/04/2018 16:24, by WEBAM Performed By: #### C MP #### [facility] [address] [place] [address] Bilirubin [Mass/Vol] 0.4 mg/dL Normal 0.2-0.7 [facility] Comment on above: Order Comment: CALL Graf LCED tel. [phone], Potassium results called to and read back by onofre Millan RN, 11/04/2018 16:24, by WEBAM Performed By: #### C MP #### [facility] [address] [place] [address] GFR/1.73 sq M predicted among blacks MDRD (S/P/Bld) [Vol rate/Area] mL/min/{1.73_m2} Normal >60 [facility] Comment on above: Order Comment: CALL Graf LCED tel. [phone], Potassium results called to and read back by onofre Millan RN, 11/04/2018 16:24, by WEBAM Result Comment: >60 mL/min/1.73m2 EGFR, calc. for ages 18 and older using the MDRD formula (not corrected for weight), is valid for stable renal function. Performed By: #### C MP #### [facility] [address] [place] [address] GFR/1.73 sq M.predicted MDRD (S/P/Bld) [Vol rate/Area] mL/min/{1.73_m2} Normal >60 [facility] Comment on above: Order Comment: CALL Graf LCED tel. [phone], Potassium results called to and read back by onofre Millan RN, 11/04/2018 16:24, by WEBAM Result Comment: >60 mL/min/1.73m2 EGFR, calc. for ages 18 and older using the MDRD formula (not corrected for weight), is valid for stable renal function. Performed By: #### C MP #### [facility] [address] [place] [address] Albumin [Mass/Vol] 4.5 g/dL Normal 3.5-4.6 [facility], [place] Comment on above: Order Comment: CALL Graf LCED tel. [phone], Potassium results called to and read back by onofre Millan RN, 11/04/2018 16:24, by WEBAM Performed By: #### C MP #### [facility] [address] [place] [address] ALP [Catalytic activity/Vol] 76 U/L Normal 40-130 [facility], [place] Comment on above: Order Comment: CALL Graf LCED tel. [phone], Potassium results called to and read back by onofre Millan RN, 11/04/2018 16:24, by WEBAM Performed By: #### C MP #### [facility] [address] [place] [address] ALT [Catalytic activity/Vol] 15 U/L Normal 0-33 [facility], [place] Comment on above: Order Comment: CALL Graf LCED tel. [phone], Potassium results called to and read back by onofre Millan RN, 11/04/2018 16:24, by WEBAM Performed By: #### C MP #### [facility] [address] [address] AST [Catalytic activity/Vol] 20 U/L Normal 0-35 [facility], [place] Comment on above: Order Comment: CALL Graf LCED tel. [phone], Potassium results called to and read back by onofre Millan RN, 11/04/2018 16:24, by WEBAM Performed By: #### C MP #### [facility] [address] [address] Calcium [Mass/Vol] 9.9 mg/dL Normal 8.5-9.9 [facility], [place] Comment on above: Order Comment: CALL Graf LCED tel. [phone], Potassium results called to and read back by onofre Millan RN, 11/04/2018 16:24, by WEBAM Performed By: #### C MP #### [facility] [address] [place] [address] Chloride [Moles/Vol] 96 mmol/L Normal 95-107 [facility], [place] Comment on above: Order Comment: CALL Graf LCED tel. [phone], Potassium results called to and read back by onofre Millan RN, 11/04/2018 16:24, by WEBAM Performed By: #### C MP #### [facility] [address] [place] [address] CO2 [Moles/Vol] 24 mmol/L Normal 20-31 [place] Comment on above: Order Comment: CALL Graf LCED tel. [phone], Potassium results called to and read back by onofre Millan RN, 11/04/2018 16:24, by WEBAM Performed By: #### C MP #### [facility] [address] [facility] [place] [address] Creatinine [Mass/Vol] 0.67 mg/dL Normal 0.50-0.90 [place], [place] Comment on above: Order Comment: CALL Graf LCED tel. [phone], Potassium results called to and read back by onofre Millan RN, 11/04/2018 16:24, by WEBAM Performed By: #### C MP #### [facility] [address] [address] Globulin (S) [Mass/Vol] 2.8 g/dL Normal 2.3-3.5 [place], [place] Comment on above: Order Comment: CALL Graf LCED tel. [phone], Potassium results called to and read back by onofre Millan RN, 11/04/2018 16:24, by WEBAM Performed By: #### C MP #### [facility] [address] [facility] [place] [address] Glucose [Mass/Vol] 109 mg/dL Critically high 70-99 M [place], [place] Comment on above: Order Comment: CALL Graf LCED tel. [phone], Potassium results called to and read back by onofre Millan RN, 11/04/2018 16:24, by WEBAM Performed By: #### C MP #### [facility] [address] [facility] [place] [address] Potassium [Moles/Vol] 3.0 mmol/L Critically low 3.4-4.9 [place] Comment on above: Order Comment: CALL Graf LCED tel. [phone], Potassium results called to and read back by onofre Millan RN, 11/04/2018 16:24, by WEBAM Performed By: #### C MP #### [facility] [address] [place] [address] Protein [Mass/Vol] 7.3 g/dL Normal 6.3-8.0 [place] Comment on above: Order Comment: CALL Graf LCED tel. [phone], Potassium results called to and read back by onofre Millan RN, 11/04/2018 16:24, by WEBAM Performed By: #### C MP #### [facility] [address] [place] [address] Sodium [Moles/Vol] 134 mmol/L Low 135-144 [place] Comment on above: Order Comment: CALL Graf ED tel. [phone], Potassium results called to and read back by onofre Millan RN, 11/04/2018 16:24, by WEBAM Performed By: #### C MP #### [facility] [address] [place] [address] Urea nitrogen [Mass/Vol] 8 mg/dL Normal 8-23 [place] Comment on above: Order Comment: CALL Graf ED tel. [phone], Potassium results called to and read back by onofre Millan RN, 11/04/2018 16:24, by WEBAM Performed By: #### C MP #### [facility] [address] [facility] [address] Anion gap [Moles/Vol] 14 mmol/L [place] Bilirubin Ql (U) 0.4 mg/dL 0.2 - 0.7 mg/dL [place], [place] GFR >60.0 >60 [place], [place] Comment on above: >60 mL/min/1.73m2 EG FR, calc. for ages 18 and older using the MDRD formula (not corrected for weight), is valid for stable renal function. GFR Non- >60.0 >60 [place] Comment on above: >60 mL/min/1.73m2 EG FR, calc. for ages 18 and older using the MDRD formula (not corrected for weight), is valid for stable renal function. Interpretation and review of laboratory results Abnormal [place] Potassium [Moles/Vol] CALL Graf LCED tel . [phone], Potassium results called to and read back by onofre Millan RN, 11/04/2018 16:24, by TAMMY [place] Partial Thromboplastin Timeo n 11-04-2018 aPTT Coag (Bld) [Time] 27.9 s Normal 24.4-36.8 [facility] Comment on above: Result Comment: Effe ctive 09/06/2018: Please note methodology and/or reference ranges have changed. aPTT - Heparin Therapeutic Range: 74.0 - 106 seconds Performed By: #### P TT #### [facility] [address] [facility] [address] Prothrombin Timeon 9 INR Coag (PPP) [Relative time] 0.9 {INR} Normal [facility] Comment on above: Result Comment: Warf camden Therapy INR Therapeutic: 2.0-3.0 With Mechanical Valve: >2.5 Low-intensity Therapeutic Range: 1.5-2.0 Mod-intensity Therapeutic Range: 2.0-3.0 High-intensity Therapeutic Range: 2.5-3.5 HIgh-intensity Therapeutic Range: 3.0-4.0 Common Critical/Alarm Value: 5.0 Common Upper Limit Reported: 10.0 Effective 08/30/2018: Please note methodology and/or reference ranges have changed. Performed By: #### P T #### [facility] [address] [facility] [address] PT Coag (PPP) [Time] 12.1 s Low 12.3-14.9 [facility] Comment on above: Result Comment: Effe ctive 08/30/18 Please note methodology and/or reference ranges have changed. Performed By: #### P T #### [facility] [address] [place] [address] Protime-INRon 11-04-2018 INR Coag (PPP) [Relative time] 0.9 {INR} [place] Comment on above: Warfarin Therapy IN R Therapeutic: 2.0-3.0 With Mechanical Valve: >2.5 Low-intensity Therapeutic Range: 1.5-2.0 Mod-intensity Therapeutic Range: 2.0-3.0 High-intensity Therapeutic Range: 2.5-3.5 HIgh-intensity Therapeutic Range: 3.0-4.0 Common Critical/Alarm Value: 5.0 Common Upper Limit Reported: 10.0 Effective 08/30/2018: Please note methodology and/or reference ranges have changed. Interpretation and review of laboratory results Abnormal [place], [place] PT Coag (PPP) [Time] 12.1 s Low [place], [place] Comment on above: Effective 08/30/18 Please note methodology and/or reference ranges have changed. Sedimentation Rateon 019 Sedimentation Rate 12 mm Normal 0-30 [facility] Comment on above: Performed By: #### E SR #### [facility] [address] [place] [address] Sed Rate 12 mm 0 - 30 mm [place], [place] Vital Signs Date Time Vital Sign Value Performing Clinician Ivonne ledesma 12-22-2022 11:40-0400 Blood Pressure Location MIKAYLA WEISS [facility] 12-22-2022 11:40-0400 Diastolic blood pressure 84 mm[Hg] MIKAYLA WEISS [facility] 12-22-2022 11:40-0400 Systolic blood pressure 124 mm[Hg] MIKAYLA WEISS [facility] 08-06-2022 00:10-0400 Body temperature 97.3 [degF] MD Addy Daniels Work Phone: [facility] 08-06-2022 00:10-0400 Diastolic blood pressure 74 mm[Hg] MD Addy Daniels Work Phone: [facility] 08-06-2022 00:10-0400 Heart rate 80 /min MD Addy Daniels Work Phone: [facility] 08-06-2022 00:10-0400 Respiratory rate 18 /min MD Addy Daniels Work Phone: [facility] 08-06-2022 00:10-0400 SaO2% (BldA) [Mass fraction] 96 % MD Addy Daniels Work Phone: [facility] 08-06-2022 00:10-0400 Systolic blood pressure 177 mm[Hg] MD Addy Daniels Work Phone: [facility] 08-05-2022 19:51-0400 Body height 154.94 cm MD Addy Daniels Work Phone: [facility] 08-05-2022 19:51-0400 Body weight 67.6 kg MD Addy Daniels Work Phone: [facility] 11-20-2018 07:02-0400 Body Temperature 97 [degF] [facility] [place] [place] [facility] [place] 11-20-2018 07:02-0400 BP Diastolic 61 mm[Hg] [facility] [place] [facility] [place] 11-20-2018 07:02-0400 BP Systolic 153 mm[Hg] [facility] [place] [facility] [place] 11-20-2018 07:02-0400 Pulse (Heart Rate) 75 /min [facility] [place] 11-20-2018 07:02-0400 Pulse Oximetry 97 % [facility] [place] [facility] [place] 11-20-2018 07:02-0400 Respiratory Rate 17 /min [facility] [place] 11-17-2018 05:54-0400 BMI (Body Mass Index) 27.62 kg/m2 [facility] [place] 11-17-2018 05:54-0400 Body weight 66.3 kg Mary Vega [facility], [place] 11-15-2018 15:58-0400 Height 154.9 cm Mary Vega [facility], [place] 11-05-2018 07:30-0400 BP Diastolic 57 mm[Hg] [facility] , [place] 11-05-2018 07:30-0400 BP Systolic 135 mm[Hg] [facility] , [place] 11-05-2018 07:30-0400 Pulse (Heart Rate) 70 /min [facility], [place] 11-05-2018 07:30-0400 Pulse Oximetry 97 % [facility] , [place] 11-04-2018 20:06-0400 Body Temperature 98.4 [degF] [facility], [place] 11-04-2018 20:06-0400 Respiratory Rate 16 /min [facility] 11-04-2018 14:56-0400 BMI (Body Mass Index) 27.4 kg/m2 [facility], [place] 11-04-2018 14:56-0400 Body weight 65.77 kg [facility] [place] 11-04-2018 14:56-0400 Height 154.9 cm [facility] [place] Encounters Encounter Date Encounter Type Care Provider Facility Start: 06-29-2023 ambulatory MIKAYLA Mora ty:ERIN Hoang Start: 01-11-2023 End: 01-11-2023 ambulatory [facility] Start: 12-22-2022 End: 12-23-2022 ambulatory MIKAYLA WEISS Facility:ERIN Hoang Start: 12-22-2022 End: 12-22-2022 Patient encounter procedure MIKAYLA WEISS [facility] Natalya Start: 10-14-2022 End: 10-14-2022 ambulatory [facility] Start: 09-06-2022 End: 09-07-2022 ambulatory Raymond HARRISON Facility:ERIN Hoang Start: 08-11-2022 End: 08-12-2022 ambulatory Raymond HARRISON Facility:CD:[id number] Start: 08-10-2022 End: 08-11-2022 ambulatory Raymond HARRISON Facility:[facility] Start: 08-09-2022 End: 08-09-2022 ambulatory Addy Daniels Facility:[facility] Start: 08-09-2022 ambulatory MIKAYLA WEISS Facility :[facility] Start: 08-05-2022 End: 08-06-2022 Emergency department patient visit Camacho Saavedray Facility:[facility] Start: 08-05-2022 End: 08-06-2022 Emergency department patient visit MD Addy Daniels Work Phone: [facility] Work Phone: Start: 06-13-2022 End: 06-14-[address] ADDY DANIELS . Facility:[facility] Start: 05-19-[address] ADDY DANIELS . Facili ty:[facility] Start: 04-18-2022 End: 04-19-[address] VALERIE DARDEN Facility:[facility] Start: 04-04-2022 End: 04-04-2022 ambulatory [facility] Start: 01-30-[address] ADDY DANIELS . Facili ty:[facility] Start: 01-04-2022 End: 01-05-[address] ADDY DANIELS . Facility:[facility] Start: 12-26-2021 End: 12-29-2021 Evaluation and management of inpatient DR ADDY DANIELS . Facility:[facility] Start: 12-02-2021 End: 01-04-2022 Pre-admission assessment Alie Santos [facility] Start: 11-30-2021 End: 12-01-[address] JESUS BRUNO Facility:[facility] Start: 11-09-2021 End: 11-10-[address] CALISTA ACEVES Facility:[facility] Start: 08-06-2021 End: 08-07-[address] VALERIE DARDEN Facility:[facility] Start: 07-28-2021 End: 07-29-[address] CALISTA ACEVES Facility:[facility] Start: 06-22-2021 End: 06-22-2021 Patient encounter procedure VALERIE DARDEN [facility] Start: 11-15-2018 End: 11-20-2018 Evaluation and management of inpatient [facility] Start: 11-15-2018 End: 11-20-2018 Evaluation and management of inpatient Mary Vega Work Phone: [facility] Comment on above: Spinal stenosis of l umbosacral region (Primary Dx); Impaired mobility; Vasovagal syncope Start: 11-13-2018 End: 11-15-2018 Evaluation and management of inpatient LENNY CORRAL [facility] Start: 11-13-2018 End: 11-15-2018 Patient encounter procedure LENNY Kang [facility] Start: 11-04-2018 End: 11-05-2018 Patient encounter procedure CALISTA KETAN [facility] Start: 11-04-2018 End: 11-05-2018 Emergency department patient visit Lenny Corral Work Phone: [facility] Comment on above: Lumbar radiculopathy (Primary Dx); Intractable low back pain Start: 04-19-2018 End: 04-20-2018 Patient encounter procedure DEFAULT PHYSICIAN Facility:[facility] Procedures Date Procedure Procedure Detail Performing Clinician [...] RT CALISTA KETAN Start: 11-18-2018 CHANGE DRESSING CALITSA KETAN Start: 11-18-2018 NURSING COMMUNICATION M DORA [...] ACEVES Start: 11-17-2018 INCENTIVE SPIROMETRY RT CALISTA AECVES Start: 11-17-2018 INCENTIVE SPIROMETRY RT CALISTA ACEVES [...] ICAL VTE PROPHYLAXIS CALISTA ACEVES Start: 11-15-2018 COMMUNICATIONS DIRECTOR EVAL AND TREAT CHRIS PRESLEY KETAN Start: [...] scan extracra nial art compl bi study NEXAGE Work Phone: Start: 11-15-2018 Culture bacterial quanttative colony count urine Mary Gary Work Phone: Start: 11-15-2018 Urinalysis microscopic only Mary Gary Work Phone: Start: 11-15-2018 Blood count complete auto&auto difrntl wbc CALISTA ACEVES Start: 11-15-2018 Culture bacterial bl ood aerobic w/id isolates CALISTA ACEVES Start: 11-15-2018 Microscopic examinat ion of blood, culture CALISTA ACEVES Comment on above: Performed By: #### P TT #### [facility] [address] [place] [address] Start: 11-15-2018 Urnls dip stick/tabl et [...] CT Abdomen and Pelvi s WO contrast [facility] Start: 08-05-2022 CT of abdomen and pe lvis without contrast CT abdomen pelvis wo con [facility] Start: 11-19-2019 Creatinine monitoring Creatinine mon [place], [place] Start: 11-19-2019 Potassium monitoring Potassium monit [place], [place] Start: 11-05-2019 Creatinine monitoring Creatinine mon [place], [place] Start: 11-05-2019 Potassium monitoring Potassium monit [place], [place] Start: 12-04-2018 End: 12-04-2018 Office Visit 12/04/2018 Office Visit Neurosurgery Lenny Corral MD [address] [facility], [address] [address] [employer] Start: 11-30-2018 End: 11-30-2018 Office Visit 11/30/2018 Office Visit Neurosurgery Lenny Corral MD [address] [facility], [address] [address] [employer] Start: 11-23-2018 End: 11-23-2018 Office Visit 11/23/2018 Office Visit Neurosurgery Lenny Corral MD [address] [facility], [address] [address] [employer] Start: 11-13-2018 Annual Wellness Visi t (AWV) Annual Wellness Visit (AWV) [place], [place] Start: 10-21-2018 Influenza vaccination Flu vaccine (# 1) [place], [place] Start: 2001 DEXA (modify frequen cy per FRAX score) DEXA (modify frequency per FRAX score) [place], [place] Start: 2001 Pneumococcal 65+ yea rs Vaccine (1 of 2 - PCV13) Pneumococcal 65+ years Vaccine (1 of 2 - PCV13) [place], [place] Start: 1986 Shingles Vaccine (1 of 2) Shingles Vaccine (1 of 2) [place] Start: 11-13-1955 DTaP/Tdap/Td vaccine (1 - Tdap) DTaP/Tdap/Td vaccine (1 - Tdap) [place], [place] Start: 1946 Lipid screen Lipid screen [place], [place] Culture Blood #1 Culture Blood # 1 Microbiology STAT 11/15/2018 4:37 PM EDT [place], [place] Culture Blood #2 Culture Blood # 2 Microbiology STAT 11/15/2018 4:37 PM EDT [place] End: 11-05-2018 EKG 12 Lead EKG 12 Lead ECG Routine One Time for 1 Occurrences starting 11/05/2018 until 11/05/2018 [place] Comment on above: One Time for 1 Occur rences starting 11/05/2018 until 11/05/2018 Incentive spirometry Incentive s pirometry Respiratory Care Routine Every 2hr while awake until discontinued starting 11/15/2018 [place] Comment on above: Every 2hr while awak e until discontinued starting 11/15/2018 Initiate Oxygen Ther apy Protocol Initiate Oxygen Therapy Protocol Respiratory Care Routine Daily until discontinued starting 11/15/2018 [place] Comment on above: Daily until disconti nued starting 11/15/2018 Nonrebreather mask oxygen Nonrebreather mask oxygen Respiratory Care Routine As directed - RT (PRN) until discontinued starting 11/05/2018 [place] Comment on above: As directed - RT (SD N) until discontinued starting 11/05/2018 Patient Education Kidney Stones (DC) [facility] Work Phone: Patient referral [facility] Work Phone: End: 11-15-2018 Speech and language therapy regime Speech language pathology evaluation COMMUNICATIONS DIRECTOR Routine One Time for 1 Occurrences starting 11/15/2018 until 11/15/2018 [place] Comment on above: One Time for 1 Occur rences starting 11/15/2018 until 11/15/2018 End: 11-04-2018 Urine Reflex to Culture Urine Reflex to Culture Lab STAT One Time for 1 Occurrences starting 11/04/2018 until 11/04/2018 [place] Comment on above: One Time for 1 Occur rences starting 11/04/2018 until 11/04/2018 Immunizations Immunization Date Immunization Notes Care Provider Laxmi romero 12-20-2021 influenza virus vaccine, unspecified formulation MIKAYLA ABDULLAHI [facility] 12-21-2020 influenza virus vaccine, unspecified formulation MIKAYLA ABDLULAHI [facility] 01-09-2019 influenza virus vaccine, unspecified formulation MIKAYLA ABDULLAHI [facility] 11-29-2017 influenza virus vaccine, unspecified formulation MIKAYLA ABDULLAHI [facility] 01-02-2017 influenza virus vaccine, unspecified formulation MIKAYLA ABDULLAHI [facility] 12-06-2016 influenza virus vaccine, unspecified formulation MIKAYLA ABDULLAHI [facility] 12-11-2014 influenza virus vaccine, unspecified formulation MIKAYLA ABDULLAHI [facility] Payers Date Payer Category Payer Self-pay [id number] 2021 Unknown [id number] 2018 Medicare MEDICARE MEDICAR E PART A AND B xxxxxxxxxxx 2018-Present [phone] [place] [address] xxxxxxxxxxx [id number] 2014 Medicare [id number] 2014 Medicare MEDICARE MEDICAR E PART A AND B xxxxxxxxxx 2014-Present [phone] [address] [place] [address] xxxxxxxxxx [id number] 2014 Unknown [id number] 2014 Unknown 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 [address] xxxxxxxxxxxx 2014-Present [phone] [address] [place] [address] xxxxxxxxxxxx [id number] .[id number] 1959 Medicare [id number] 1959 Self-pay [id number] 1959 Unknown [id number] 1936 Unknown [id number] 2.16.840.1.775092.3.579.2.647 1936 Unknown [id number] 2.16.840.1.737929.3.579.2.182 1936 Unknown [id number] 2.16.840.1.362110.3.579.2.182 1936 Unknown [id number] 2.16.840.1.647090.3.579.2.182 1936 Unknown [id number] 2.16.840.1.326122.3.579.2.182 1936 Unknown [id number] 2.16.840.1.262768.3.579.2.593 1936 Unknown [id number] 2.16.840.1.290663.3.579.2.593 1936 Unknown [id number] 2.16.840.1.578025.3.579.2.593 1936 Unknown [id number] 2.16.840.1.270431.3.579.2.593 1936 Unknown [id number] 2.16.840.1.908214.3.579.2.593 1936 Unknown [id number] 2.16.840.1.060303.3.579.2.593 1936 Unknown [id number] 2.16.840.1.645404.3.579.2.593 1936 Unknown [id number] 2.16.840.1.017870.3.579.2.593 1936 Unknown [id number] 2.16.840.1.359612.3.579.2.593 1936 Unknown [id number] 2.16.840.1.517177.3.579.2.593 1936 Unknown [id number] 2.16.840.1.853258.3.579.2.727 1936 Unknown [id number] 2.16.840.1.915285.3.579.2.727 1936 Unknown [id number] 2.16.840.1.166965.3.579.2.727 1936 Unknown [id number] 2.16.840.1.098531.3.579.2.727 1936 Unknown [id number] 2.16.840.1.079681.3.579.2.727 1936 Unknown [id number] 2.16.840.1.628924.3.579.2.727 Unknown Unknown [id number] 2.16.840.1.826861.3.579.2.531 Unknown [id number] 2.16.840.1.864413.3.579.2.531 Social History Date Type Detail Facility Start: 11-04-2018 End: 12-22-2022 Tobacco smoking status NHIS Never smoker [facility] Natalya Start: 11-04-2018 End: 11-19-2018 Alcohol intake Not Currently [place], [place] Sex Assigned At Not on file [place] Tobacco smoking status No Smokin g Status Entered [facility] Start: 1935 Sex Assigned At Female F [facility] Tobacco smoking status Never [facility] Medical Equipment Procedure Code Equipment Code Equipment Origin al Text Equipment Identifier Dates Graft Canc Chip 30cc [id number] - [id number] Start: 11-13-2018 Graft Canc Chip [id number] 15cc - [id number] Start: 11-13-2018 Sys Fix Reline 0 x Conn 40 50mm 5.5lp Adj [id number] Start: 11-13-2018 Jose Armando-Graft Infuse Kt Med [id number] Start: 11-13-2018 Impl Spine Cage Kamila Crv [id number] 8deg [id number] Start: 11-13-2018 Impl Spine Cage Kamila Crv [id number] 8deg [id number] Start: 11-13-2018 Screw Polyaxial Reline O 2s 6.0x55mm [id number] Start: 11-13-2018 Screw Lk Reline Opn Tulip 5.5mm [id number] Start: 11-13-2018 Impl Spine Harish Reline-O Lrdtc 5.5x70mm [id number] Start: 11-13-2018 Impl Spine Harish Reline-O 5.5x75mm [id number] Start: 11-13-2018 Functional Status Date Assessment Result Facility 12-22-2022 Functional Status N/A [facility] Clinical Notes 04-04-2022 to 01-11-2023 Note Date & Type Note Facility 01-11-2023 Note Noted 7 beat run of NSVT on 1 week holter monitor, along with SVT, PVCs Recommended to continue coreg 25 mg bid, will place 30 day monitor, and obtain treadmill cardiolite stress test for ischemic evaluation. [facility] 01-11-2023 Note Pt reports that she has had 5 syncopal episodes since this Summer- some while having a BM, and other episodes while just up and walking. [facility] 01-11-2023 Note Will monitor with ro utine echocardiogram annually unless pt has concerning symptoms [facility] 01-11-2023 Note Recommended to gorge nue ASA and pravastatin [facility] 01-11-2023 Note Hypertension is stab le Reviewed B/P log and typically in the mornings her b/p with well controlled 120's/70-80, and in the evenings can be up to 140/80 Continue all meds and will add toprol [facility] 01-11-[address] [facility] 01-11-2023 Note Will monitor with ro utine echocardiogram annually unless pt has concerning symptoms [facility] 01-11-2023 Note Will monitor with ro utine echocardiogram annually unless pt has concerning symptoms [facility] 01-11-2023 Note Patient here for 3 m o follow up valve disorder and carotid artery stenosis. She has had a few episodes of syncope since last visit. She recently wore Holter monitor. Says Dr. aDniels wants to add metoprolol but she does not want to add another medication. Review of Systems Cardiovascular: Positive for syncope. Hematologic/Lymphatic: Bruises/bleeds easily. All other systems reviewed and are negative. [facility] 01-11-2023 Note UTP CARDIOLOGY PROGR ESS NOTE [...] called and was evaluated in ED at [facility]. Admits she has had a couple syncopal episodes in the bathroom while having a BM- last one was at [employer]. States she also has had a couple while just up and walking- normal Day to Day activity. Daughter states that pt is usually out for about 1 minute. Of note patient was direct admitted to the [facility] end of August for electrolyte imbalances low sodium, low potassium, and acute anemia. She was evaluated at [facility] in October for ABD pain/ syncope, [...] The patient states she was shopping in [place] when she felt the need to have [...] a colonoscopy approximately 5 years ago at [facility]. HPI - Altered Mental Status General [...] was someone in the bathroom in the [employer] and she have to go back and [...] 3 levothyroxine (Syn (more content not included)... [facility] 12-22-2022 Hospital Discharge instructions Patient Education 12/22/2022 [...] transplant. Follow these instructions at home: Take [id number] and prescription medicines only as told by [...] provider. Document Revised: 05/26/2020 Document Reviewed: 05/26/2020 [employer] Patient Education 2022 [employer]. Follow Up Care 09/06/2022 13:10:43 With:ABDULLAHI NOONAN, MIKAYLA Pereira, URL Address: [address] [place] [address] [phone] When: Unknown Comments:6 mos w/ renal fxn (per PCP) [facility] Natalya 10-25-2022 Note Pt message/ call jorge [...] needs to call for appointment Lesly Alaniz RAIL SPECIALIST Division of Cardiology, [facility]- [phone] Pager- [phone] Email- [email or web address] 10-14-2022 Note Stable and non pitting currently [facility] 10-14-2022 Note Currently stable Pt to call for any recurrent syncope or concerns [facility] 10-14-2022 Note Mild on recent echo No concerning symptoms [facility] 10-14-2022 Note Continue ASA and statin [facility] 10-14-2022 Note Hypertension is unco ntrolled 160/75- admits this is where her b/p is at home Increase coreg to 25 mg bid, continue losartan 100 mg, hydrochlorothiazide 25 mg, and amlodipine [address] [facility] 10-14-[address] [facility] 10-14-2022 Note No concerning sympto ms Will continue to monitor with echocardiogram [facility] 10-14-2022 Note No concerning sympto ms Will continue to monitor with echocardiogram [facility] 10-14-2022 Note Patient here c/o LE edema. Says today they aren't as bad, but she states they're hard and sometimes painful. She has not had lab work since [facility] stay in July 2022. She denies chest pain, lightheadedness, and palpitations. Review of Systems Cardiovascular: Positive for dyspnea on exertion and leg swelling. Hematologic/Lymphatic: Bruises/bleeds easily. All other systems reviewed and are negative. [facility] 10-14-2022 Note UTP CARDIOLOGY PROGR ESS NOTE [...] was direct admitted to the [facility] end of August for electrolyte [...] and non pitting currently RTC 3-[address] [facility] 04-04-2022 Note [facility] Cardiology Clinic Note Chief Complaint: Patient [...] p.o. twice dominic (more content not included)... [facility] Evaluation + Plan note No data available for this section [facility] Evaluation + Plan note Future Appointments Appointment Date:06/29/2023 09:30:00 AM Scheduled Provider:MIKAYLA WEISS PA-C Location:Critical access hospital Appointment Type:URO Office Visit [facility] Evaluation note No assessment inform ation available [facility] Work Phone: Hospital Discharge instructions No data available for this section [facility] Hospital Discharge instructions Additional Instructions Take Naprosyn [...] or chills or intractable nausea vomiting. [facility] Work Phone: Progress note No data available for this section [facility] Summary Purpose Family History No Family History Records FoundNo Family History Records FoundNo Family History Records FoundNo Family History Records Found No data available for this section No Family History Records FoundNo Family History Records Found Advance Directives No Advanced Directives Records FoundDocuments on File Type Date Recorded Patient Powersaw Supervisor Expl anation Advance Directives and Living Will Power of Inspector Balance Bridge Latest Code Status on File Code Status Date Activated Date Inactivated Comments Full Code 11/05/2018 6:34 PM Full Code 11/04/2018 5:08 PM 11/05/2018 6:34 PM Documents on File Type Date Recorded Patient Powersaw Supervisor Expl anation Advance Directives and Livin g Will Advance Directives and Livin g Will 11/06/2018 1:08 AM AD info sheets Power of Inspector Balance Bridge Latest Code Status on File Code Status [...] sent through Care Everywhere. * Back Pain (Citizen Of [place]) documented in this encounter* Discharge Instr - [...] most local grocery stores, pharmacies, and chain [employer]-stores. ? If you have any questions about [...] Contact Information Primary Emergency Contact: Andrea Madrid [facility] Mobile Relation: Spouse Secondary Emergency Contact: Liliya Townsend Mobile Relation: Child [employer] Groom needed? No Past Surgical History: Past Surgical History: Procedure Laterality Date APPENDECTOMY BACK SURGERY CHOLECYSTECTOMY LUMBAR FUSION N/A 11/13/2018 PLIF L 3-4-5 DECOMPRESSION L3, L4 performed by Lenny Corral MD at [facility] Right Immunization History: There is [...] Assisted Dressing Independent Toileting Independent Feeding Independent Grinding Room Inspector Independent Med Delivery whole Wound Care Documentation [...] Video (Video Swallowing Test): {Done Not Done Date:[id number]} Treatments at the Time of Hospital Discharge: Respiratory Treatments: Oxygen Therapy: is not on home oxygen therapy. Ventilator: - No ventilator support Rehab Therapies: Physical Therapy and Occupational Therapy Weight Bearing Status/Restrictions: No weight bearing restirctions Other Medical Equipment (for information only, NOT a DME order): walker Other Treatments: Patient's personal belongings (please select all that are sent with patient): {[facility] Belongings:[id number]} RN SIGNATURE: MANAGEMENT/SOCIAL WORK SECTION Inpatient Status Date: Patient was admitted to Inpatient Acute Rehab 11/15/18 Readmission Risk Assessment Score: Readmission Risk Risk of Unplanned Readmission: 12 Discharging to Facility/ Agency Name: Karan Sosa Address: Fax: Dialysis Facility (if applicable) Name: Address: Dialysis Schedule: Phone: Fax: Ingredient Scaler Helper/Configuration Management Architect signature: ICIAN SECTION Prognosis: Good Condition at [...] Date: 11/20/2018 Patient Name: Hiram Madrid Account: [id number] : 1935 (83 y.o.) Room: [place] [address] Diagnosis: Impaired mobility and gait secondary to [...] L4 performed by Lenny Corral MD at [facility] Right Precautions: Restrictions/Precautions: Fall Risk [...] to increasing pain) Transfer Assistance: Independent Active Surgical Scrub Technician: Yes Mode of Transportation: Car 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 Leisure & Hobbies: Cooking, reading, needlepoint Additional Comments: 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, has been relying more on dtr and spouse due toworsening weakness past few weeks Current Functional Status: ADL Equipment Provided: Sock aid, Technical Business Analyst Feeding: Modified independent Grooming: Independent UE Bathing: [...] glasses for reading Hearing Hearing: Exceptions to [facility] Hearing Exceptions: Hard of hearing/hearing concerns, [...] PM Yarely Gordon 11/20/2018 12:35 PM EDT [facility] MUSIC THERAPY Date: 11/20/2018 Patient Name: Hiram Madrid Date of : 1935 (83 y.o.) Gender: female Diagnosis: Impaired mobility and gait secondary to NTSCI secondary to lumbar stenosis, radiculopathy, and spondylosis Referring Practitioner: Dr. Coker RESTRICTIONS/PRECAUTIONS: Restrictions/Precautions: Fall Risk Vision: Impaired Hearing: Exceptions to [facility] Hearing Exceptions: Hard of hearing/hearing concerns, [...] interested in having music therapy again. [] [facility] will attempt to see pt again another day, if time allows. [x] Pt's planned d/c date is before [facility] is scheduled on unit again. [] Pt NOT interested in having music therapy again. [facility] * Roselyn Schroeder OTA - 11/20/2018 9:59 AM EDT Occupational Therapy Facility/Department: [facility] Daily Treatment Note NAME: Hiram Madrid [...] 11/20/2018 9:55 AM EDT Occupational Therapy Facility/Department: [facility] Daily Treatment Note NAME: Hiram Madrid [...] device (slide rail) Walk: 6 - Modified Jay Walks at least 150 feet with an ambulatory device, orthosis or prosthesis OR requires extra amount of time OR there is concern for safety Distance Walked: 200' Wheel Chair: 0 - Activity Not Assessed/Does Not Occur Stairs: 6 - Modified Jay Safely goes up and down at least [...] from Dr. Ellis Holguin D.O., PM&R Attending [phone] [facility] [place] * Khanh White LPN - 11/19/2018 6:00 [...] 11/19/2018 2:05 PM EDT Occupational Therapy Facility/Department: [facility] Daily Treatment Note NAME: Hiram Madrid [...] EDT Physical Therapy Rehab Treatment Note Facility/Department: [facility] Room: [place] [address] NAME: Hiram Madrid : 1935 (83 y.o.) [...] EDT Progress Note Patient: Hiram Madrid Unit/Bed: [place] [address] Date of : 1935 Acct: [id number] Admitting Diagnosis: Impaired mobility [Z74.09] Spinal stenosis [...] and tentative discharge home tomorrow. Follows with crimping machine operator in [place]. 11/18/18: called by director of staff development regarding tachycardia. Pt was unaware of tachycardia. [...] to have + orthostatics. Denies hx of AR, CHF or arrhythmia. Follows with a crimping machine operator from [place] for carotid artery disease and cardiac murmur. [...] to DC home and F/U with regular crimping machine operator as outpatient Attending Supervising Physician's Attestation Statement The patient is a 83 y.o. female. I have performed a history and physical examination of the patient. I discussed the case with the physician farm assistant. I reviewed the patient's Past Medical [...] EDT Physical Therapy Rehab Treatment Note Facility/Department: [facility] Room: [place] [address]- NAME: Hiram Madrid : 1935 (83 y.o.) [...] EDT Physical Therapy Rehab Treatment Note Facility/Department: [facility] NAME: Hiram Madrid : 1935 (83 y.o.) [...] Neuromuscular Education Neuromuscular Comments: Pizano Initiated: other ADMINISTRATION CLERK finished it: pt scored a 42/56. Bed [...] education: 10 Therapeutic ex: 0 Mikayla Lindsey, ADMINISTRATION CLERK, 11/19/18 at 11:59 AM * Khanh White [...] Unit/Bed: R238/R238-01 Date of : 1935 Acct: [id number] Admitting Diagnosis: Impaired mobility [Z74.09] Spinal stenosis of lumbosacral region [M48.07] Admit Date: 11/15/2018 Hospital Day: 4 Current Medications: Scheduled Meds: cephALEXin 500 mg Oral 3 times per day srtxcxdi-luxgqelipb-nnasegeyi Topical BID enoxaparin 30 mg Subcutaneous Daily [...] woman from homewith spouse who presents to [facility] with the above deficits which [...] ms QTc Calculation (Bazett) 463 ms P [place] 58 degrees R [place] -11 degrees T [place] 5 degrees Xr Chest Standard (2 Vw) [...] from Dr. Ellis Holguin D.O., PM&R Attending [address] [place] [address] * Rachael Graf LPN - 11/18/2018 4:39 [...] and no guarding. Musculoskeletal: Back: Urine Culture [[id number]] Collected: 11/15/18 190 Order Status: Completed Specimen: Urine, clean catch Updated: 11/17/18 0728 Urine Culture, Routine No growth 24 hours Narrative: ORDERED BY: ADDY COKER SOURCE: Urine Clean Catch COLLECTED: 11/15/18 19:05 ANTIBIOTICS AT DI.: RECEIVED : 11/15/18 19:05 Culture Blood #2 [[id number]] Collected: 11/15/18 1637 Order Status: Completed Specimen: Blood Updated: 11/16/18 1815 Culture, Blood 2 No Growth to date. Any change in status will be called. Narrative: ORDERED BY: ADDY COKER SOURCE: Blood COLLECTED: 11/15/18 16:37 ANTIBIOTICS AT DI.: RECEIVED : 11/15/18 16:42 Culture Blood #1 [[id number]] Collected: 11/15/18 1637 Order Status: Completed Specimen: [...] Unit/Bed: R238/R238-01 Date of : 1935 Acct: [id number] Admitting Diagnosis: Impaired mobility [Z74.09] Spinal stenosis [...] L4 performed by Lenny Corral MD at [facility] Right History reviewed. No pertinent [...] on phone: None Gets together: None Attends buddhist service: None Active member of club or organization: None Attends meetings of clubs or organizations: None Relationship status: None Intimate partner violence: Fear of current or ex partner: None Emotionally abused: None Physically abused: None Forced sexual activity: None Other Topics Concern None Social History Narrative None Subjective/HPI: called by director of staff development regarding tachycardia. Pt was unaware of tachycardia. [...] woman from homewith spouse who presents to [facility] with the above deficits which [...] up labs. Blanca Holguin D.O., PM&R Attending [phone] [place] [address] [place] * Dana Craig, JANET - 11/17/2018 5:45 PM EDT Monitor room called, said pt had about 18 sec run of svt up to 218; notified cardio. * Faye Summers PTA - 11/17/2018 4:07 PM EDT Physical Therapy Rehab Treatment Note Facility/Department: [facility] NAME: Hiram Madrid : 1935 (83 y.o.) [...] 11/17/2018 2:51 PM EDT Occupational Therapy Facility/Department: [facility] Daily Treatment Note NAME: Hiram Madrid [...] EDT Physical Therapy Rehab Treatment Note Facility/Department: [facility] Room: R238/R238-01 NAME: Hiram Madrid : [...] EDT Physical Therapy Rehab Treatment Note Facility/Department: [facility] NAME: Hiram Madrid : 1935 (83 y.o.) [...] 11/17/2018 8:43 AM EDT Occupational Therapy Facility/Department: [facility] Daily Treatment Note NAME: Hiram Madrid [...] at below status. ADL Equipment Provided: Sock aid;Technical Business Analyst Grooming: Independent UE Bathing: Setup LE Bathing: [...] woman from homewith spouse who presents to [facility] with the above deficits which [...] consult,check dopplers Blanca Holguin D.O., PM&R Attending [phone] [facility] [place] * Jessica Irvin, OTR/L - 11/16/2018 4:14 PM EDT Occupational Therapy Facility/Department: [facility] Daily Treatment Note NAME: Hiram Madrid : 1935 Date of Service: 11/16/2018 Discharge Recommendations: Continue to assess pending progress OT Equipment Recommendations Other: Continue to assess Assessment Performance deficits / Impairments: Decreased functional mobility ;Decreased ADL status;Decreased strength;Decreased balance;Decreased endurance;Decreased high- level IADLs Assessment: Pt. is an 83 year old woman from home with spouse who presents to [facility] with the above deficits which [...] Pain: Yes Objective The patient completed the [facility] Mental Status (UMS) Examination on this [...] Unit/Bed: R238/R238-01 Date of : 1935 Acct: [id number] Admitting Diagnosis: Impaired mobility [Z74.09] Spinal stenosis of lumbosacral region [M48.07] Admit Date: 11/15/2018 Hospital Day: 1 Current Medications: Scheduled Meds: [START ON 11/17/2018] enoxaparin 40 mg Subcutaneous Daily zfwfaaka-kwsnydouih-nuiecqlsn Topical BID docusate sodium 100 mg Oral [...] to have + orthostatics. Denies hx of AR, CHF or arrhythmia. Follows with a crimping machine operator from [place] for carotid artery disease and cardiac murmur. [...] L4 performed by Lenny Corral MD at [facility] Right Social History Social History [...] on phone: None Gets together: None Attends buddhist service: None Active member of club or [...] mg 100 mg Oral Daily Shyla Vizcaino, SCRAPER TENDER - SQUEEGEE OPERATOR oxyCODONE-acetaminophen (PERCOCET) 5-325 MG per tablet 1 tablet 1 tablet Oral Q4H PRN Shylapresley Vizcaino, SCRAPER TENDER - SQUEEGEE OPERATOR potassium chloride (KLOR-CON) packet 20 mEq 20 mEq Oral BID Shyla Renato Vizcaino, SCRAPER TENDER - SQUEEGEE OPERATOR pravastatin (PRAVACHOL) tablet 80 mg 80 mg Oral Daily Shyla Renato Vizcaino, SCRAPER TENDER - SQUEEGEE OPERATOR polyethylene glycol (GLYCOLAX) packet 17 g [...] EDT Physical Therapy Rehab Treatment Note Facility/Department: [facility] Room: [facility] NAME: Hiram Madrid : 1935 (83 y.o.) [...] education: 0 Therapeutic ex: 23 Mikayla Lindsey ADMINISTRATION CLERK, 11/16/18 at 3:57 PM * Rhiannon Blank [...] from home with spouse who presents to [facility] with the above deficits which [...] to increasing pain) Transfer Assistance: Independent Active Surgical Scrub Technician: Yes Mode of Transportation: Car Type of [...] OTR/L Jessica Irvin OTR/Lloyd * Jena Vega, ADMINISTRATION CLERK - 11/16/2018 10:35 AM EDT Physical Therapy Rehab Treatment Note Facility/Department: [facility] Room: [place] [address] NAME: Hiram Madrid : 1935 (83 y.o.) [...] 11/16/18 at 11:10 AM * Jessenia Gordon, SOCIAL SERVICE LIAISON - 11/16/2018 9:35 AM EDT [facility] RECREATIONAL THERAPY Initial Evaluation Date: [...] hearing in left ear) Patient seen at: [phone] Recreation Therapist received referral, chart reviewed and [...] her flower bed. Past leisure interests: Walking, anabaptism, had pets Future leisure interests: Emotional Observed/noted: [...] PT - 11/16/2018 8:20 AM EDT Facility/Department: [facility] Rehabilitation Initial Assessment: Physical Therapy [facility] NAME: Hiram Madrid : 1935 Date of [...] L4 performed by Lenny Corral MD at [facility] Right Chart Reviewed: Yes Patient [...] to increasing pain) Transfer Assistance: Independent Active Surgical Scrub Technician: Yes Additional Comments: 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, [...] side to side to initiate log roll USP goals USP goal 1: pt to be indep with bed mobility microsoft dynamics manager architect goal 2: pt to be indep with bed transfers USP goal 3: pt to [id number] ft with supervision microsoft dynamics manager architect goal 4: pt to navigate 4 steps with SBA microsoft dynamics manager architect goal 5: 30/56 for Pizano balance testing ELOS: Plan weeks: 2 Therapy Time: Individual Time In 1000 Time Out 1030 Minutes 30 Lakisha Trevino, PT, 11/16/18 at 12:00 PM * Marybel Ackerman, [facility] - 11/15/2018 11:29 PM EDT Tashia Stark [...] puffs by inhalation with spacer [] Ipratropium [place] 0.02% unit dose by aerosol Ipratropium [place] MDI 2 puffs by inhalation with spacer [] Duoneb (Ipratropium + Albuterol) unit dose by aerosol Ipratropium MDI + Albuterol MDI 2 puffs byinhalation w/spacer MDI to Aerosol [] Albuterol Sulfate MDI Albuterol Sulfate 0.083% unit dose by aerosol [] Levalbuterol MDI 2 puffs by inhalation Levalbuterol 1.25 mg unit dose by aerosol [] Ipratropium [place] MDI by inhalation Ipratropium [place] 0.02% unit dose by aerosol [] Combivent (Ipratropium + Albuterol) MDI by inhalation Duoneb (Ipratropium + Albuterol) unit doseby aerosol Treatment Assessment [Frequency/Schedule]: Change frequency to: ACCUNEB Q4 PRN per Protocol, P&T, [facility] Points 0 1 2 3 4 [...] of lumbosacral region Impaired mobility Vasovagal syncope [facility] [address] [place] [address] Chief Complaint and Reason for Visit Chief Complaint SYNCOPE Additional Source Comments INFORMATION SOURCE (unrecogn ized section and content) DATE CREATED AUTHOR 04/20/2018 [facility] DATE CREATED AUTHOR AUTHOR'S ORGANIZ ATION 11/24/2018 [facility] DATE CREATED AUTHOR AUTHOR'S ORGANIZ ATION 06/14/2022 [facility] DATE CREATED AUTHOR AUTHOR'S ORGANIZ ATION 08/21/2022 [facility] DATE CREATED AUTHOR AUTHOR'S ORGANIZ ATION 12/23/2022 [facility] DATE CREATED AUTHOR AUTHOR'S ORGANIZ ATION 01/13/2023 [facility] Reason for Visit (unrecogniz ed section and content) Reason Comments Back Pain Left low back pain r adiates down left leg. Pain flared up last monday Status Reason Specialty Diagnoses / Procedures Referre d By Contact Referred To Contact Diagnoses Intractable back pain Lenny Corral MD [id number] [facility] [address], [address] [place] [address] [facility] Patient Care team informatio n (unrecognized section [...] BE BASED ON THE PRIMARY CLINICAL RECORDS. [facility] [employer] [facility]. provides no warranty or guarantee of the accuracy or completeness of information in this document.
--- NOTE | 2023-04-02 14:19 | ECG_ITS ---
[facility] Test Date: 2023-04-02 Pat Name: HIRAM MADRID Department: Room: - Gender: Female Infusion Nurse: : 1935 Requested By: MAMI DANIELS Order Number: [id number] Reading MD: MAMI DANIELS Measurements Intervals [place] Rate: 64 P: 55 IN: 202 QRS: 4 QRSD: 140 T: -12 QT: 446 QTc: 455 Interpretive Statements 1100 Sinus rhythm 2450 Right bundle branch block 5211 Minimal voltage criteria for LVH, may be normal variant 9150 abnormal ECG Compared to ECG 03/28/2023 15:41:23 Left ventricular hypertrophy now present Electronically Signed On 04-03-2023 6:44:02 EST by MAMI DANIELS
[2023-04-02 14:25] LABS: Basophils Percent Auto 0.3 % (0.2-2.0); Eosinophils Absolute Auto 0.1 10^3/uL (0.0-0.7); Eosinophils Percent Auto 0.5 % (0.9-7.0); Hematocrit 36.4 % (36.0-48.0); Hemoglobin 13.3 g/dL (12.0-16.0); Immature Granulocytes Pct Auto 0.9 % (0.0-0.5); Lymphocytes Absolute Auto 2.3 10^3/uL (1.2-3.8); Lymphocytes Percent Auto 19.7 % (20.5-60.0); Mean Corpuscular HGB Conc 36.5 g/dL (29.9-35.2); Mean Corpuscular Volume 87.5 fL (81.0-99.0); Mean Platelet Volume 8.3 fL (9.5-13.5); Monocytes Absolute Auto 1.1 10^3/uL (0.3-0.8); Monocytes Percent Auto 9.2 % (1.7-12.0); Neutrophils Percent Auto 69.4 % (43.0-75.0); Platelet Count 442 10^3/uL (150-450); Red Blood Count 4.16 10^6/uL (4.20-5.40); Red Cell Distribution Width 12.1 % (11.0-15.0); White Blood Count 11.5 10^3/uL (4.0-11.0)
[2023-04-02 14:34] LABS: Alanine Aminotransferase 27 U/L (14-59); Albumin Globulin Ratio 0.9; Albumin Level 3.4 g/dL (3.4-5.0); Alkaline Phosphatase 72 U/L (46-116); Anion Gap 10.6; Aspartate Amino Transferase 21 U/L (15-37); BUN Creatinine Ratio 12.3; Bilirubin Total 0.7 mg/dL (0.2-1.0); Calcium 9.2 mg/dL (8.5-10.1); Carbon Dioxide 30.2 mmol/L (21.0-32.0); Estimated GFR (African America >60 (>=60); Estimated GFR (Non-African Ame >60 (>=60); Globulin 3.7 g/dL; Glucose 122 mg/dL (74-106); Magnesium 1.5 mg/dL (1.8-2.4); Total Protein 7.1 g/dL (6.4-8.2)
[2023-04-02 14:37] LABS: Troponin I High Sensitivity 7.5 pg/mL (4.0-51.3)
[2023-04-02 14:47] LABS: Chloride 78 mmol/L (98-107); Potassium 2.8 mmol/L (3.5-5.1); Sodium 116 mmol/L (136-145)
--- NOTE | 2023-04-02 14:48 | ED.NAVMDI1 ---
HPI - Nausea/Vomiting/Diarrhea General Chief complaint: Nausea/Vomiting/Diarrhea Stated complaint: NAUSE AND CONSTIPATION Time Seen by Provider: 04/02/23 14:15 Source: patient and family Mode of arrival: Wheelchair History of Present Illness HPI Narrative: The patient is very well-known to us presented to the hospital multiple times with hyponatremia, and she never had any proper workup with nephrology, she is coming again to us today with nausea no vomiting no diarrhea some constipation. The patient also has been complaining of this back pain that shoots up to her neck and usually it is burning-like and comes and goes and she does not have it at the moment. The patient denies any abdominal pain or any leg pain or weakness Related Data Home Medications Medication Instructions Recorded Confirmed levothyroxine 88 mcg tablet 88 mcg PO QDAY 08/10/22 04/02/23 losartan 100 mg tablet 100 mg PO QDAY 08/10/22 04/02/23 potassium chloride 20 mEq 20 meq PO TID 08/10/22 04/02/23 tablet,extended release pravastatin 80 mg tablet 80 mg PO QDAY 08/10/22 04/02/23 magnesium oxide 400 mg (241.3 mg 400 mg PO BID PRN constipation 02/10/23 04/02/23 magnesium) tablet hydrochlorothiazide 25 mg tablet 25 mg PO DAILY 03/28/23 04/02/23 ondansetron HCl 4 mg tablet 4 mg PO Q6H PRN nausea and vomiting 04/02/23 04/02/23 Previous Rx's Medication Instructions Recorded pantoprazole 40 mg tablet,delayed 40 mg PO DAILY #30 tabs 08/17/22 release (Protonix) amlodipine 5 mg tablet 5 mg PO DAILY #30 tabs 03/29/23 carvedilol 12.5 mg tablet (Coreg) 12.5 mg PO Q12H #60 tabs 03/29/23 Allergies Allergy/AdvReac Type Severity Reaction Status Date / Time atorvastatin Allergy Severe HIVES Verified 04/02/23 13:58 prednisone Allergy Severe Rash Verified 04/02/23 13:58 Review of Systems ROS Status of ROS 10 or more systems reviewed and unremarkable except as noted in history and below [facility] Medical History (Updated 04/02/23 @ 16:40 by Dorene Zamora MD) Acute hyponatremia ?E87.1 - Hypo-osmolality and hyponatremia (ICD-10) Hypokalemia ?E87.6 - Hypokalemia (ICD-10) Syncope, vasovagal ?R55 - Syncope and collapse (ICD-10) Hypochloremia ?E87.8 - Other disorders of electrolyte and fluid balance, not elsewhere classified (ICD-10) Acute hypokalemia ?E87.6 - Hypokalemia (ICD-10) Contusion of hip, left ?S70.02XA - Contusion of left hip, initial encounter (ICD-10) Fall ?W19.XXXA - Unspecified fall, initial encounter (ICD-10) COVID ?U07.1 - COVID-19 (ICD-10) Hyponatremia ?E87.1 - Hypo-osmolality and hyponatremia (ICD-10) Hypomagnesemia ?E83.42 - Hypomagnesemia (ICD-10) Colitis ?K52.9 - Noninfective gastroenteritis and colitis, unspecified (ICD-10) GI bleed ?K92.2 - Gastrointestinal hemorrhage, unspecified (ICD-10) Elevated blood pressure reading ?R03.0 - Elevated blood-pressure reading, without diagnosis of hypertension (ICD-10) Back pain with history of spinal surgery ?M54.9 - Dorsalgia, unspecified (ICD-10) ?Z98.890 - Other specified postprocedural states (ICD-10) Thyroid disease ?E07.9 - Disorder of thyroid, unspecified (ICD-10) Syncope ?R55 - Syncope and collapse (ICD-10) Neuropathy ?G62.9 - Polyneuropathy, unspecified (ICD-10) Kidney stones ?N20.0 - Calculus of kidney (ICD-10) Hypertension ?I10 - Essential (primary) hypertension (ICD-10) Hyperlipidemia ?E78.5 - Hyperlipidemia, unspecified (ICD-10) Hydronephrosis ?N13.30 - Unspecified hydronephrosis (ICD-10) Hard of hearing ?H91.90 - Unspecified hearing loss, unspecified ear (ICD-10) Atrial fibrillation ?I48.91 - Unspecified atrial fibrillation (ICD-10) Arthritis ?M19.90 - Unspecified osteoarthritis, unspecified site (ICD-10) Acute hyponatremia ?E87.1 - Hypo-osmolality and hyponatremia (ICD-10) Orthostasis ?I95.1 - Orthostatic hypotension (ICD-10) Syncope due to orthostatic hypotension ?I95.1 - Orthostatic hypotension (ICD-10) Surgical History History of tonsillectomy ?Z90.89 - Acquired absence of other organs (ICD-10) H/O colonoscopy ?Z98.890 - Other specified postprocedural states (ICD-10) Hx of cholecystectomy ?Z90.49 - Acquired absence of other specified parts of digestive tract (ICD-10) History of cataract extraction ?Z98.49 - Cataract extraction status, unspecified eye (ICD-10) History of salpingoophorectomy ?Z90.79 - Acquired absence of other genital organ(s) (ICD-10) ?Z90.721 - Acquired absence of ovaries, unilateral (ICD-10) History of appendectomy ?Z90.49 - Acquired absence of other specified parts of digestive tract (ICD-10) Family History Mother Family history of CHF (congestive heart failure) Father Lupus Brother Family history of myocardial infarction Family history of stroke Other Arthritis Family history of hypertension Social History Within the past year, how often did you have a drink containing alcohol: never Score interpretation: A score less than 3 is consistent with normal alcohol consumption. 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 Highest level of school completed/degree received: 9th grade Are you now , , , , never or living with a partner: In a typical week, how many times do you talk on the telephone with family, friends, or neighbors: 3 or more times per week How often do you get together with friends or relatives: 3 or more times per week How often do you attend spiritism or yazdanism services: 4 or more times per year Do you belong to any clubs or organizations such as spiritism groups unions, fraternal or athletic groups, or school groups: yes Total score: 3 Score interpretation: A score of greater than or equal to 2 indicates the lowest level of social isolation. Little interest or pleasure in doing things: not at all Feeling down, depressed, or hopeless: not at all Feel stressed/tense/nervous/anxious/difficulty sleeping: not at all Life stressors: recent of family or friend Do you think of yourself as: straight/heterosexual Gender Identity: female Exam Narrative Exam Narrative: Nurses notes and vital signs reviewed and patient is not hypoxic. General: Well-appearing and in no apparent distress. Skin: Warm, dry, no pallor noted. No rash. Head: Normocephalic, atraumatic. Neck: Supple, non-tender. Eye: Pupils are equal, round and EOMI. No scleral icterus. Ears, Nose, Mouth, and Throat: TM are clear, no nasal mucosal hypertrophy. Oral mucosa is moist, no posterior oropharynx erythema, uvula is mid-line Cardiovascular: Regular Rate and Rhythm without murmur, gallop or rub. Respiratory: No accessory muscle use or respiratory distress. Lungs are clear to auscultation, no wheezing, rales or rhonchi Chest Wall: no tenderness Back: No midline thoracic or lumbar vertebral tenderness. No CVA tenderness Musculoskeletal: normal ROM, no calf or popliteal tenderness, no lower extremity edema/swelling GI: Abdomen is soft, non-distended. Normal bowel sounds. No masses appreciated. No tenderness to palpation. No rebound, guarding, or rigidity noted. Neurological: A&O x4. No cranial nerve dysfunction observed. No truncal ataxia. Moves all extremities. Sensation intact. Psychiatric: Cooperative and interactive. Normal mood and affect. Constitutional Vital Signs, click to edit/add: Last Vital Signs Temp 97.7 F 04/02/23 14:00 Pulse 65 04/02/23 14:00 Resp 16 04/02/23 14:00 BP 184/82 H 04/02/23 14:00 Pulse Ox 98 04/02/23 14:00 O2 Del Method Room Air 04/02/23 14:00 Course Vital Signs Vital signs: Vital Signs Temperature 97.7 F 04/02/23 14:00 Pulse Rate 65 04/02/23 14:00 Respiratory Rate 16 04/02/23 14:00 Blood Pressure 184/82 H 04/02/23 14:00 Pulse Oximetry 98 04/02/23 14:00 Oxygen Delivery Method Room Air 04/02/23 14:00 Temperature 97.7 F 04/02/23 14:00 Pulse Rate 65 04/02/23 14:00 Respiratory Rate 16 04/02/23 14:00 Blood Pressure 184/82 H 04/02/23 14:00 Pulse Oximetry 98 04/02/23 14:00 Oxygen Delivery Method Room Air 04/02/23 14:00 MDM - Nausea/Vomiting/Diarrhea MDM Narrative Medical decision making narrative: The patient EKG showing sinus rhythm with a heart rate of [address] elevation or depression there is a QTc of 455 Right bundle christian block The patient blood workup today showing again hyponatremia with sodium of 116 the potassium also 2.8 and the magnesium is 1.5 The patient was provided with IV and p.o. potassium in addition to magnesium 2 g in addition to 500 cc of bolus of normal saline The patient need an evaluation by nephrology for proper management of her workup of her significant electrolyte disturbance I spoke with Dr. Magana the grizzly worker and [facility] and he accepted the patient in addition to Dr. Lockhart the hospitalist in [facility] accepted the patient under his care Lab Data Labs: Lab Results 04/02/23 04/02/23 Range/Units 14:07 15:00 WBC 11.5 H (4.0-11.0) 10^3/uL RBC 4.16 L (4.20-5.40) 10^6/uL Hgb 13.3 (12.0-16.0) g/dL Hct 36.4 (36.0-48.0) % MCV 87.5 (81.0-99.0) fL MCH 32.0 (26.7-34.0) pg MCHC 36.5 H (29.9-35.2) g/dL RDW 12.1 (11.0-15.0) % Plt Count 442 (150-450) 10^3/uL MPV 8.3 L (9.5-13.5) fL Neut % (Auto) 69.4 (43.0-75.0) % Lymph % (Auto) 19.7 L (20.5-60.0) % Hyde % (Auto) 9.2 (1.7-12.0) % Eos % (Auto) 0.5 L (0.9-7.0) % Baso % (Auto) 0.3 (0.2-2.0) % Neut # (Auto) 8.0 H (1.4-6.5) 10^3/uL Lymph # (Auto) 2.3 (1.2-3.8) 10^3/uL Hyde # (Auto) 1.1 H (0.3-0.8) 10^3/uL Eos # (Auto) 0.1 (0.0-0.7) 10^3/uL Baso # (Auto) 0.0 (0.0-0.1) 10^3/uL Abs Immat Gran (auto) 0.10 H (0.00-0.03) 10^3/uL Imm/Tot Granulo (auto) 0.9 H (0.0-0.5) % Sodium 116 L* (136-145) mmol/L Potassium 2.8 L* (3.5-5.1) mmol/L Chloride 78 L* (98-107) mmol/L Carbon Dioxide 30.2 (21.0-32.0) mmol/L Anion Gap 10.6 BUN 9.0 (7.0-18.0) mg/dL Creatinine 0.73 (0.55-1.02) mg/dL Est GFR ( Amer) >60 (>=60) Est GFR (Non-Af Amer) >60 (>=60) BUN/Creatinine Ratio 12.3 Glucose 122 H (74-106) mg/dL Calcium 9.2 (8.5-10.1) mg/dL Magnesium 1.5 L (1.8-2.4) mg/dL Total Bilirubin 0.7 (0.2-1.0) mg/dL AST 21 (15-37) U/L ALT 27 (14-59) U/L Alkaline Phosphatase 72 (46-116) U/L Troponin I High Sens 7.5 (4.0-51.3) pg/mL Total Protein 7.1 (6.4-8.2) g/dL Albumin 3.4 (3.4-5.0) g/dL Globulin 3.7 g/dL Albumin/Globulin Ratio 0.9 Urine Color Lt. yellow (YELLOW) Urine Clarity Clear (CLEAR) Urine pH 8.0 (5.0-9.0) Ur Specific Marshall 1.015 (1.005-1.025) Urine Protein Negative (NEG/TRACE) mg/dL Urine Glucose (UA) Negative (NEGATIVE) mg/dL Urine Ketones Negative (NEGATIVE) mg/dL Urine Occult Blood Negative (NEGATIVE) Urine Nitrite Negative (NEGATIVE) Urine Bilirubin Negative (NEGATIVE) Urine Urobilinogen 0.2 (0.2-1.0) EU/dL Ur Leukocyte Esterase Negative (NEGATIVE) Discharge Plan Discharge Chief Complaint: Nausea/Vomiting/Diarrhea Clinical Impression: Acute hyponatremia, Acute hypokalemia, Hypochloremia, Hypomagnesemia Patient Disposition: [facility] Time of Disposition Decision: 16:40
[2023-04-02 15:20] LABS: Bilirubin Urine NEGATIVE (NEGATIVE); Blood Urine NEGATIVE (NEGATIVE); Clarity Urine CLEAR (CLEAR); Color Urine LT. YELLOW (YELLOW); Glucose Urine UA NEGATIVE (NEGATIVE); Ketones Urine NEGATIVE (NEGATIVE); Leukocyte Esterase Urine NEGATIVE (NEGATIVE); Nitrite Urine NEGATIVE (NEGATIVE); Protein Urine NEGATIVE (NEG/TRACE); Specific Gravity Urine 1.015 (1.005-1.025); Urobilinogen Urine 0.2 EU/dL (0.2-1.0)
[2023-04-02 15:21] LABS: Urine Microscopic Indicated NO
[2023-04-02] MEDS: POTASSIUM BICARBONATE/CIT 25 MEQ TABLET EFF 50 MEQ PO (15:27)
[2023-04-02] MEDS: POTASSIUM CHLORIDE IN WATER 10 MEQ/100 ML PIGGYBACK 100 MEQ IV (15:27)
[2023-04-02] MEDS: 0.9 % SODIUM CHLORIDE 1,000 ML 500 ML IV (16:13)
[2023-04-02] MEDS: ONDANSETRON PF 4 MG/2 ML VIAL IV (16:15)
--- NOTE | 2023-04-02 16:44 | PC.NURSE ---
PT STATES HER NAUSEA HAS GONE AWAY NOW AND FEELS BETTER AFTER ZOFRAN ADMIN. UPDATED ON WHEN TRANSPORTATION WILL ARRIVE AND G[place] DAUGH[place] PT'S ROOM [place] [facility] [place]IES [place] NEEDS AT THIS TIME.
--- NOTE | 2023-04-02 16:51 | PC.NURSE ---
ASSISTED PT TO BEDSIDE COMMODE AT THIS TIME. PT THINKS SHE CAN HAVE A BOWEL MOVEMENT. DAUGHTER REMAINS AT BEDSIDE
[2023-04-02] MEDS: MAGNESIUM SULFATE IN WATER 2 GM/50 ML PREMIX IV (17:14)
[2023-04-02] MEDS: HYDRALAZINE HCL 20 MG/ML VIAL 10 MG IVP (17:45)
== END 2023-04-02 18:04 | disposition short-term general hospital (02) ==
PROVIDERS: Emergency Provider Emergency Medicine; PCP Family Medicine
DX: E87.1 Hypo-osmolality and hyponatremia (principal); E87.6 Hypokalemia; E87.8 Other disorders of electrolyte and fluid balance, not elsewhere classified; E83.42 Hypomagnesemia; E07.9 Disorder of thyroid, unspecified; Z86.16 Personal history of COVID-19; N20.0 Calculus of kidney; H91.90 Unspecified hearing loss, unspecified ear; I48.91 Unspecified atrial fibrillation; M19.90 Unspecified osteoarthritis, unspecified site; E78.5 Hyperlipidemia, unspecified; Z90.89 Acquired absence of other organs; Z79.890 Hormone replacement therapy; Z79.899 Other long term (current) drug therapy; Z98.890 Other specified postprocedural states; Z90.49 Acquired absence of other specified parts of digestive tract; Z98.49 Cataract extraction status, unspecified eye; Z90.79 Acquired absence of other genital organ(s); Z90.721 Acquired absence of ovaries, unilateral
CPT/HCPCS: 36415; 80053; 81003; 83735; 84484; 85025; 93005; 96365; 96366; 96375; 99285; J0360; J2405; J3475; J3480

== ENCOUNTER 2023-04-12 16:14 | Outpatient (REF) | payer MEDICARE, OTHER, SELFPAY ==
[2023-04-12 17:05] LABS: Anion Gap 15.1; BUN Creatinine Ratio 15.8; Calcium 8.9 mg/dL (8.5-10.1); Carbon Dioxide 25.9 mmol/L (21.0-32.0); Chloride 98 mmol/L (98-107); Estimated GFR (African America >60 (>=60); Estimated GFR (Non-African Ame >60 (>=60); Glucose 113 mg/dL (74-106); Sodium 135 mmol/L (136-145)
== END 2023-04-12 16:15 | disposition home or self-care (01) ==
LOC: LAB 16:14
PROVIDERS: PCP Family Medicine; Visit Provider Family Medicine
DX: E87.1 Hypo-osmolality and hyponatremia (principal)
CPT/HCPCS: 36415; 80048

== ENCOUNTER 2023-04-17 09:46 | Emergency (ER) | payer MEDICARE, OTHER, SELFPAY ==
[2023-04-17] VITALS (18 sets, daily range): BP systolic 165–192; BP diastolic 69–79; PULSE 77–96; RESP 15–31; TEMP 36.6; O2SAT 95–99; BMI 25.1
--- NOTE | 2023-04-17 09:50 | ECG_ITS ---
[facility] Test Date: 2023-04-17 Pat Name: HIRAM MADRID Department: Room: - Gender: Female Lehr Cutter: : 1935 Requested By: MAMI DANIELS Order Number: [id number] Reading MD: IRAIDA STREETER Measurements Intervals [place] Rate: 80 P: 52 NC: 180 QRS: 35 QRSD: 126 T: 4 QT: 390 QTc: 425 Interpretive Statements 1100 Sinus rhythm 2450 Right bundle branch block 9150 abnormal ECG Compared to ECG 04/02/2023 14:25:03 Left ventricular hypertrophy no longer present Electronically Signed On 04-20-2023 23:07:08 [address]ER
--- OUTSIDE RECORDS SUMMARY | 2023-04-17 10:10 | XMS_ITS | CCD ---
Author Name Unknown Address [address] [place] [address] Organization [facility] Care Team Providers Care Shut Off Worker Name Role Phone PHYSICIAN, DEFAULT Admitting [...] H. Consulting Unavailable TY JON Consulting Unavailable KAYLEECARLOS Consulting Unavailable ELLIS, LENNY H. Attending Unavailable ELLIS, LENNY H. Referring Unavailable CALISTA ACEVES Primary Care Unavailable Calista Aceves Primary Care Provider [phone] CALISTA ACEVES Primary Care Physician [phone] DR VALERIE DARDEN Consulting Unavailable JEREMIAH ., DR BOLAÑOS Primary Care Unavailable ADELSO, DR PADILLA Attending Unavailable ADELSO, DR APDILLA Admitting Unavailable CARLAY .DR BOLAÑOS Primary Care Unavailable LAKSHMIPATHY ., TYLER Attending Kerry vailable LAKSHMIPATHYousuf ., TYLER Admitting Kerry vailable HOYousuf ., DR BOLAÑOS Primary Care Unavailable HOY ., DR BOLAÑOS Attending Unavailable HOY ., DR BOALÑOS Admitting Unavailable HOY ., DR BOLAÑOS Attending Unavailable HOY ., DR BOLAÑOS Admitting Unavailable HOY ., DR BOLAÑOS Consulting Unavailable KETAN, DR CALISTA Pereira Primary Care Unavailable IVAN ., TRAY Consulting Unavailable TING MIXON Consulting Unavailable HOYousuf ., DR BOLAÑOS Consulting Unavailable HOY ., [...] Unavailable MD Addy Daniels Primary Care Provider [phone] DO Camacho Ladd [facility] Addy Euceda Primary Care Physician MIKAYLA WEISS Attending Unavailable HARRISON, Raymond Mckeon Attending Unavailable HARRISON, Raymond R Attending Unavailable ABUDLLAHIMIKAYLA MARTINEZ Attending Unavailable HARRISONRaymond R Attending Unavailable ELTAHAWY, LUÍSAB Attending Unavailable CORBIN, LESLY Attending Unavailable CORBIN, LESLY Attending Unavailable Raymond Harrison Admitting Unavailable Christy, Raymond Attending Unavailable Addy Daniels Primary Care Unavailable Gaudencio Romero Consulting Unavailable Addy Daniels Primary Care Unavailable Lucy Lockhart Admitting Unavailable Turner Frank Attending Unavailable Katie Pearce Consulting Unavailable Chino, Fiona Consulting Unavailable Singhania, Cachorro Consulting Unavailable Sood, Warner Consulting Unavailable Bakhous, Aziz Consulting Unavailable Addy Daniels Primary Care Unavailable Camacho Ladd Admitting Unavailable Camacho Ladd Attending Unavailable MD Addy Daniels Primary Care Provider [phone] MD Lucy Lockhart Admit Provider MD Gaudencio Romero Other Provider KAMILA Pearce Other Provider Unavailable Chino, MD Fiona Other Provider MD Cachorro Real Other Provider [phone] MD Warenr Sood Other Provider MD Boni Choi Other Provider DO Turner Frank Attending Provider Allergies Allergy Classification Reported Allergen(s) Allergy Type Date of Onset Reaction(s) Facility (6 sources) predniSONE; Translations: [prednisone] Drug Allergy 8 Hives, Eruption of skin (disorder) [place] (2 sources) predniSONE Drug Allergy 7 [facility] (4 sources) atorvastatin; Translations: [atorvastatin] Drug Allergy 3 Unknown (qualifier value) [facility] (2 sources) Ibuprofen; Translations: [ibuprofen] Drug Allergy Unknown (qualifier value) [facility] (1 source) atorvastatin Drug Allergy 3 [facility] Repository (2 sources) Corticosteroids Drug allergy (disorder) 3 [facility] (1 source) predniSONE Drug Allergy 3 [facility] Repository Medications Current Medications Medication Drug Class(es) Dates [...] (PROVENTIL) (2.5 M G/3ML) 0.083% nebulizer solution amLODIPine 10 mg oral tablet (7 sources) Dihydropyridine Calcium Channel Yadira Start: 04-06-2023 take 1 tablet by mouth once daily Amlodipine (Norvasc) 10 mg Tablet Active 1 TAB PO Daily April 06, 2023 12:04pm Start: 08-06-2018 End: 04-06-2023 take 1 tablet by mouth once daily amLODIPine 10 mg Tab 30 EA, TAKE 1 TABLET BY MOUTH ONCE DAILY, Refills(s) 0 Start Date: 08/09/22 Status: Ordered aspirin 81 mg oral capsule (7 sources) Platelet Aggregation Inhibitor, Nonsteroidal Anti-inflammatory Drug Start: 08-10-2022 take 1 mg by mouth every four hours aspirin 81 mg oral capsule mg cap(s), Oral, q4hr Start Date: 08/10/22 Status: Ordered Start: 11-05-2018 aspirin chewab le tablet 81 mg Start: 08-06-2018 End: 04-02-2023 take 1 tablet by mouth once daily Aspirin (Aspir-81) 81 mg Tablet,Delayed Release (Dr/Ec) Discontinued 1 TAB PO Daily August 05, 2018 11:00pm April 02, 2023 6:53pm take 1 tablet by neil th once daily aspirin 81 MG tablet Take 81 mg by mouth daily 0 Active bacitracin 0.5 unt/mg / neomycin 0.0035 mg/mg / polymyxin b 10 unt/mg topical ointment (2 sources) Aminoglycoside Antibacterial, Polymyxin-class Antibacterial Start: 11-16-2018 End: 11-18-2018 cpidxzbe-epycgsmjpf-uxuhlnqz n (NEOSPORIN) ointment carvedilol (1 source) alpha-Adrenergic Yadira, beta-Adrenergic Yadira Start: 08-10-2022 carvedilol Oral Start Date: 08/10/22 Status: Ordered cinnamon oil liquid 1 drop (1 source) [...] Molecular Weight Heparin Start: 11-17-2018 enoxaparin (LOVENOX) injecti on 30 mg Start: 11-05-2018 inject 40 mg [...] guaiFENesin (MUCINEX) extended release tablet 600 mg lactulose 667 mg/ml oral solution (1 source) Osmotic Laxative Start: 11-17-2018 lactulose (CHRONULAC) 10 GM/15ML solution 20 g magnesium oxide 400 mg oral tablet (1 source) Start: 04-02-2023 take 400 mg by mouth twice daily Magnesium Oxide Active 400 MG PO Twice daily April 02, 2023 12:00am 1 ml morphine sulfate 4 mg/ml cartridge (2 sources) Opioid Agonist Start: 11-04-2018 morphine injec tion 4 mg Start: 11-04-2018 End: 11-04-2018 morphine (PF) injection 4 mg ondansetron 4 mg oral tablet (4 sources) Serotonin-3 Receptor Antagonist Start: 08-05-2022 take 4 mg by mouth once daily Ondansetron Hcl Active 4 MG PO Daily 5 August 04, 2022 11:00pm Start: 11-05-2018 4 mg, Intraven ous, EVERY 6 HOURS PRN, Nausea, Starting 11/05/18 at 1830 Start: 11-04-2018 End: 11-04-2018 ondansetron (ZOFRAN) injecti on 4 mg pantoprazole 40 mg delayed release oral tablet (1 source) Proton Pump Inhibitor Start: 04-04-2023 take 40 mg by mouth once daily Pantoprazole Active 40 MG PO Daily at 0630 April 04, 2023 12:00am polyethylene glycol 3350 62349 mg powder for oral solution (1 source) Osmotic Laxative Start: 11-15-2018 polyethylene glycol (GLYCOLAX) packet 17 g Potassium Chloride (8 sources) Start: 08-10-2022 Potassium Chlo ride (Req-Mjyv-Vns 10) mEq, Oral, BID Start Date: 08/10/22 Status: Ordered Start: 11-05-2018 End: 11-05-2018 potassium chloride (KLOR-CON M) extended release tablet 40 mEq Start: 11-04-2018 20 mEq, Oral, 2 TIMES DAILY, First dose on Aura 11/15/18 at 2100 Dilute with at least 4 ounces of cold water. May further dilute if GI adverse effects occur. Start: 08-06-2018 take 1 tablet by neil th once daily Potassium Chloride (Klor-Con M20) 20 mEq Tablet,Er Particles/Crystals Active 1 TAB PO Daily August 05, 2018 11:00pm sennosides, skilled nursing 8.6 mg oral tablet (1 source) Start: [...] Care, After every IV line use, Starting 11/05/18 at 1830 Completed/Discontinued Medications Medication Drug Class(es) Dates Sig (Normalized) Sig (Original) cephalexin 500 mg oral capsule (5 sources) Cephalosporin Antibacterial Start: 08-05-2022 End: 04-02-2023 take 500 mg by mouth twice daily Cephalexin Discontinued 500 MG PO Twice daily 02 09August 04, 2022 11:00pm April 02, 2023 6:53pm Start: 11-19-2018 End: 11-29-2018 take 1 capsule [...] Aura 11/15/18 at 2200, For 16 doses ciprofloxacin 250 mg oral tablet (1 source) Quinolone Antimicrobial Start: 08-30-2022 take 1 tablet by mouth once daily Cipro 250 mg Tab 250 mg = 1 tab(s), Oral, Daily, Take 1 tablet the day before the procedure and 1 tablet after the procedure, # 2 tab(s), Refills(s) 0, Pharmacy: [facility], 155, cm, 08/10/22 9:03:00 EDT, Height/Length Dosing, 65, kg, 08/10/22 9:03:00 EDT, Weight Dosing Start Date: 08/30/22 Status: Ordered gadoteridol (PROHANCE) injection 15 mL (1 source) Start: 11-05-2018 End: 11-05-2018 gadoteridol (PROHANCE) injection 15 mL hydroCHLOROthiazide 25 mg oral tablet (2 sources) Thiazide Diuretic Start: 04-02-2023 End: 04-06-2023 take 25 mg by mouth once daily Hydrochlorothiazide Discontinued 25 MG PO Daily April 02, 2023 12:00am April 06, 2023 12:07pm Start: 08-10-2022 hydrochlorothi azide Oral, Daily Start Date: 08/10/22 Status: Ordered 1 ml ketorolac tromethamine 15 mg/ml cartridge (1 source) Nonsteroidal Anti-inflammatory Drug, Cyclooxygenase Inhibitor Start: 11-04-2018 End: 11-04-2018 ketorolac (TORADOL) injection 15 mg levothyroxine sodium 0.088 mg oral tablet (8 sources) l-Thyroxine Start: 08-09-2022 take 1 tablet by mouth once daily in the morning levothyroxine 88 mcg (0.088 mg) Tab 90 EA, TAKE 1 TABLET BY MOUTH ONCE DAILY IN THE MORNING ON AN EMPTY STOMACH, Refills(s) 0 Start Date: 08/09/22 Status: Ordered Start: 08-06-2018 take 1 tablet by neil th once daily Levothyroxine (Synthroid) 88 mcg Tablet Active 1 TAB PO Daily August 05, 2018 11:00pm End: 11-19-2018 levothyroxine (SYNTHROID) 10 0 MCG [...] mg losartan potassium 100 mg oral tablet (7 sources) Angiotensin 2 Receptor Yadira Start: 11-16-2018 take 100 mg by mouth once daily 100 mg, Oral, DAILY, First dose on Mon11/16/18 at 0900 Start: 11-05-2018 losartan (COZA AR) tablet 100 mg Start: 08-06-2018 take 1 tablet by mouth once da senthil losartan 100 mg Tab 90 EA, TAKE 1 TABLET BY MOUTH ONCE DAILY, Refills(s) 0 Start Date: 08/09/22 Status: Ordered metoprolol tartrate 25 mg oral tablet (4 sources) beta-Adrenergic Yadira Start: 11-15-2018 End: 11-19-2018 take 1 tablet by mouth twice daily metoprolol tartrate (LOPRESSOR) 25 MG tablet Take 1 tablet by mouth 2 times daily HOLD for SBP 60 tablet 3 11/19/2018 11/19/2018 Discontinued naproxen 500 mg oral tablet (2 sources) Nonsteroidal Anti-inflammatory Drug Start: 08-05-2022 End: 04-02-2023 take 1 tablet by mouth twice daily Naproxen (Naprosyn) 500 mg tablet Discontinued 500 MG PO Twice daily 11 24August 04, 2022 11:00pm April 02, 2023 6:53pm oxyCODONE hydrochloride 5 mg oral tablet (2 sources) Opioid Agonist Start: 08-05-2022 End: 04-02-2023 take 5 mg by mouth once daily Oxycodone Discontinued 5 MG PO Daily 06 24August 05, 2022 April 02, 2023 6:53pm piperacillin-tazoba ctam (ZOSYN) 3.375 g in dextrose 5 % 50 mL IVPB (mini-bag) (1 source) Start: 11-15-2018 End: 11-17-2018 piperacillin-tazoba ctam (ZOSYN) 3.375 g in dextrose 5 % 50 mL IVPB (mini-bag) potassium bicarbonate 25 meq effervescent oral tablet (1 source) Start: 11-04-2018 End: 11-04-2018 potassium bicarbonate (K-LYTE) disintegrating tablet 50 mEq pravastatin sodium 80 mg oral tablet (7 sources) HMG-CoA Reductase Inhibitor Start: 08-06-2018 take 1 tablet by mouth once daily pravastatin 80 mg Tab 30 EA, TAKE 1 TABLET BY MOUTH ONCE DAILY, Refills(s) 0 Start Date: 08/09/22 Status: Ordered tamsulosin hydrochloride 0.4 mg oral capsule (2 sources) alpha-Adrenergic Yadira Start: 08-05-2022 End: 04-02-2023 take 1 capsule by mouth once daily Tamsulosin (Flomax) 0.4 mg capsule Discontinued 0.4 MG PO Daily August 04, 2022 11:00pm April 02, 2023 6:54pm vancomycin 1000 mg IVPB in 250 mL D5W addavial (3 sources) Start: 11-20-2018 End: 11-20-2018 vancomycin 1000 mg IVPB in 250 mL D5W addavial Start: 11-16-2018 End: 11-17-2018 vancomycin 1000 mg IVPB in 2 50 mL D5W addavial Start: 11-15-2018 End: 11-15-2018 vancomycin 1000 mg IVPB in 2 50 mL D5W addavial Problems Active Problems Problem Classification Problem Date Documented Date Episodic/Chronic Abdominal pain (2 sources) Abdominal pain; Translations: [Unspecified abdominal pain] 08-05-2022 Episodic Cardiac dysrhythmias (1 source) Atrial fibrillation 08-10-2022 Chronic Diseases of white blood cells (1 source) Elevated white blood cell count, unspecified; Translations: [ELEVATED WHITE BLOOD CELL COUNT UNS] Onset: 12-31-2021 Chronic Disorders of lipid metabolism (8 sources) Pure hypercholesterolemia, unspecified; Translations: [Hyperlipidemia, unspecified] Onset: 08-06-2021 Chronic Essential hypertension (11 sources) Essential (primary) hypertension; Translations: [Hypertensive disorder] Onset: 07-28-2021 Chronic Fluid and electrolyte disorders (20 sources) Hypo-osmolality and hyponatremia; Translations: [Dehydration] Onset: [...] failure] Onset: 04-04-2022 Chronic Nausea and vomiting (3 sources) Nausea; Translations: [Nausea and vomiting] Onset: [...] Translations: [Lumbar spondylosis] Onset: 11-13-2018 11-13-2018 Chronic Thyroid disorders (1 source) Hypothyroidism, unspecified; Translations: [...] Translations: [Impaired mobility] Onset: 11-15-2018 11-15-2018 Episodic Calculus of urinary tract (5 sources) Kidney stone; Translations: [Calculus of kidney] Onset: 08-05-2022 08-05-2022 Episodic Genitourinary symptoms and ill-defined conditions (1 source) Personal history of urinary (tract) infections; Translations: [PERS HX URINARY TRACT INFECTIONS] Onset: 12-31-2021 Episodic Malaise and fatigue (1 source) Weakness; Translations: [WEAKNESS] Onset: 12-31-2021 Episodic 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 source) jail (current) use of aspirin; Translations: [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] Onset: 12-31-2021 Episodic 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 source) Other intermediate manager (current) drug therapy; Translations: [OTH M[facility] CURRENT DRUG THERAPY] Onset: 12-31-2021 Episodic Residual codes; unclassified (2 sources) Localized edema; Translations: [Localized edema] Onset: 04-04-2022 Episodic Spondylosis; intervertebral disc disorders; other back problems (10 sources) Lumbar radiculopathy; Translations: [Intractable low back pain] Onset: 11-04-2018 11-04-2018 Episodic Syncope (8 sources) Vasovagal syncope; Translations: [Syncope] Onset: 04-04-2022 11-19-2018 Episodic Unclassified (1 source) Other ventricular tachycardia; Translations: [Other ventricular tachycardia] Onset: 01-11-2023 Results Test Name Value Interpretation Reference Range Facility Basic Metabolic Panelon 03-23 Anion gap [Moles/Vol] 14.8 mmol/L Normal 6.0-15.0 [facility] Comment on above: Performed By: #### B MP #### [facility] [address] [place] [address] [place] Calcium [Mass/Vol] 9.2 mg/dL Normal 8.6-10.3 [facility] Comment on above: Performed By: #### B MP #### [facility] [address] [place] [id number] [place] Chloride [Moles/Vol] 91 mmol/L Low 98-107 [facility] Comment on above: Performed By: #### B MP #### [facility] [address] [place] [id number] [place] CO2 [Moles/Vol] 27.7 mmol/L Normal 21.0-31.0 [facility] Comment on above: Performed By: #### B MP #### [facility] [address] [place] [id number] [place] Creatinine [Mass/Vol] 0.56 mg/dL Low 0.60-1.20 [facility] Comment on above: Performed By: #### B MP #### [facility] [address] [place] [address] [place] Creatinine Clr Calc Pharmacy 42.78 [facility] Comment on above: Result Comment: PERF ORMED BY: [address] [place] [address] PATHOLOGIST HAUL DRIVER GOSIA MCADAMS M.D. Performed By: #### B MP #### [place] [address] [place] GFR/1.73 sq M.predicted MDRD (S/P/Bld) [Vol rate/Area] mL/min/{1.73_m2} [facility] Comment on above: Performed By: #### B MP #### [address] Glucose [Mass/Vol] 116 mg/dL High 70-100 [facility] Comment on above: Result Comment: [facility] Glucose Reference Range is dependent on time and content of last meal. Glucose of more than 200 mg/dL in a nonstressed, ambulatory subject supports the diagnosis of Diabetes Mellitus. ADA recommended reference range Performed By: #### B MP #### [address] Potassium [Moles/Vol] 3.5 mmol/L Normal 3.5-5.1 [facility] Comment on above: Performed By: #### B MP #### [address] Sodium [Moles/Vol] 130 mmol/L Low 136-145 [facility] Comment on above: Performed By: #### B MP #### [place] [address] [place] Urea nitrogen [Mass/Vol] 8 mg/dL Normal 7-25 [facility] Comment on above: Performed By: #### B MP #### [place] [address] [place] Calcium [Mass/volume] in Ser um or PlasmaOrdered By: Turner Frank on 04-05-2023 Calcium [Mass/Vol] 9.2 mg/dL 8.6-10.3 [facility] Carbon dioxide, total [Moles /volume] in Serum or PlasmaOrdered By: Turner Frank on 04-05-2023 CO2 [Moles/Vol] 27.7 mmol/L 21.0-31.0 [facility] Chloride [Moles/volume] in S willa or PlasmaOrdered By: Turner Frank on 04-05-2023 Chloride [Moles/Vol] 91 mmol/L 98-107 [facility] Creatinine [Mass/volume] in Serum or PlasmaOrdered By: Turner Frank on 04-05-2023 Creatinine [Mass/Vol] 0.56 mg/dL 0.60-1.20 [facility] Glucose [Mass/volume] in Ser um or PlasmaOrdered By: Turner Frank on 04-05-2023 Glucose [Mass/Vol] 116 mg/dL 70-100 [facility] Comment on above: ADA recommended refe rence rangeRandom Glucose Reference Range is dependent on time and content of last meal. Glucose of more than 200 mg/dL in a nonstressed, ambulatory subject supports the diagnosis of Diabetes Mellitus. No Panel InformationOrdered By: Turner Frank on 04-05-2023 Estimated GFR (CKD-EPI) > 60.0 mL/Min [facility] Creatinine Clearance (Chem 42.78 [facility] Potassium [Moles/volume] in Serum or PlasmaOrdered By: Turner Frank on 04-05-2023 Potassium [Moles/Vol] 3.5 mmol/L 3.5-5.1 [facility] Serum or plasma anion gap de terminationOrdered By: Turner Frank on 04-05-2023 Anion gap [Moles/Vol] 14.8 mmol/L 6.0-15.0 [facility] Sodium [Moles/volume] in Ser um or PlasmaOrdered By: Turner Frank on 04-05-2023 Sodium [Moles/Vol] 130 mmol/L 136-145 [facility] Urea nitrogen [Mass/volume] in Serum or PlasmaOrdered By: Turner Frank on 04-05-2023 Urea nitrogen [Mass/Vol] 8 mg/dL 7-25 [facility] Basic Metabolic Panelon 03-23 Anion gap [Moles/Vol] 10.8 mmol/L Normal 6.0-15.0 [facility] Comment on above: Performed By: #### B MP #### [facility] [address] Calcium [Mass/Vol] 9.0 mg/dL Normal 8.6-10.3 [facility] Comment on above: Performed By: #### B MP #### [facility] [address] Chloride [Moles/Vol] 92 mmol/L Low 98-107 [facility] Comment on above: Performed By: #### B MP #### [facility] [address] CO2 [Moles/Vol] 26.3 mmol/L Normal 21.0-31.0 [facility] Comment on above: Performed By: #### B MP #### [address] Creatinine [Mass/Vol] 0.61 mg/dL Normal 0.60-1.20 [facility] Comment on above: Performed By: #### B MP #### [address] Creatinine Clr Calc Pharmacy 42.78 [facility] Comment on above: Result Comment: PERF ORMED BY: [place] [address] PATHOLOGIST HAUL DRIVER GOSIA MCADAMS M.D. Performed By: #### B MP #### [place] [address] [place] GFR/1.73 sq M.predicted MDRD (S/P/Bld) [Vol rate/Area] mL/min/{1.73_m2} [facility] Comment on above: Performed By: #### B MP #### [place] [address] [place] Glucose [Mass/Vol] 177 mg/dL High 70-100 [facility] Comment on above: Result Comment: [facility] Glucose Reference Range is dependent on time and content of last meal. Glucose of more than 200 mg/dL in a nonstressed, ambulatory subject supports the diagnosis of Diabetes Mellitus. ADA recommended reference range Performed By: #### B MP #### [facility] [address] Potassium [Moles/Vol] 3.1 mmol/L Low 3.5-5.1 [facility] Comment on above: Performed By: #### B MP #### [facility] [address] Sodium [Moles/Vol] 126 mmol/L Low 136-145 [facility] Comment on above: Performed By: #### B MP #### [address] Urea nitrogen [Mass/Vol] 7 mg/dL Normal 7-25 [facility] Comment on above: Performed By: #### B MP #### [address] Anion gap [Moles/Vol] 10.3 mmol/L Normal 6.0-15.0 [facility] Comment on above: Performed By: #### B MP #### [address] Calcium [Mass/Vol] 8.6 mg/dL Normal 8.6-10.3 [facility] Comment on above: Performed By: #### B MP #### [place] [address] [place] Chloride [Moles/Vol] 93 mmol/L Low 98-107 [facility] Comment on above: Performed By: #### B MP #### [place] [address] [place] CO2 [Moles/Vol] 27.2 mmol/L Normal 21.0-31.0 [facility] Comment on above: Performed By: #### B MP #### [address] Creatinine [Mass/Vol] 0.59 mg/dL Low 0.60-1.20 [facility] Comment on above: Performed By: #### B MP #### [facility] [address] [place] [address] [place] Creatinine Clr Calc Pharmacy 42.39 [facility] Comment on above: Performed By: #### B MP #### [facility] [address] [place] [address] [place] GFR/1.73 sq M.predicted MDRD (S/P/Bld) [Vol rate/Area] mL/min/{1.73_m2} [facility] Comment on above: Performed By: #### B MP #### [address] Glucose [Mass/Vol] 107 mg/dL High 70-100 [facility] Comment on above: Result Comment: [facility] Glucose Reference Range is dependent on time and content of last meal. Glucose of more than 200 mg/dL in a nonstressed, ambulatory subject supports the diagnosis of Diabetes Mellitus. ADA recommended reference range Performed By: #### B MP #### [address] Potassium [Moles/Vol] 3.5 mmol/L Normal 3.5-5.1 [facility] Comment on above: Performed By: #### B MP #### [place] [address] [place] Sodium [Moles/Vol] 127 mmol/L Low 136-145 [facility] Comment on above: Performed By: #### B MP #### [address] Urea nitrogen [Mass/Vol] 7 mg/dL Normal 7-25 [facility] Comment on above: Performed By: #### B MP #### [place] [address] [place] Free T4 (Free Thyroxine)on 0 04-04-2023 Free T4 [Mass/Vol] 1.41 ng/dL High 0.61-1.12 [facility] Comment on above: Result Comment: PERF ORMED BY: [address] [place] [address] PATHOLOGIST HAUL DRIVER GOSIA MCADAMS M.D. Performed By: #### B MP #### [facility] [address] [place] [address] [place] Thyroxine (T4) free [Mass/vo lume] in Serum or PlasmaOrdered By: Turner Frank on 04-04-2023 Free T4 [Mass/Vol] 1.41 ng/dL 0.61-1.12 [facility] Alanine aminotransferase [En zymatic activity/volume] in Serum or PlasmaOrdered By: Natividad Gregory on 04-03-2023 ALT [Catalytic activity/Vol] 14 U/L 7-52 [facility] Albumin [Mass/volume] in Ser um or Plasma by Bromocresol green (BCG) dye binding methoOrdered By: Natividad Gregory on 04-03-2023 Albumin BCG dye [Mass/Vol] 3.7 g/dL 3.5-5.7 [facility] Alkaline phosphatase [Enzyma tic activity/volume] in Serum or PlasmaOrdered By: Natividad Gregory on 04-03-2023 ALP [Catalytic activity/Vol] 56 U/L 34-104 [facility] Aspartate aminotransferase [ Enzymatic activity/volume] in Serum or PlasmaOrdered By: Natividad Gregory on 04-03-2023 AST [Catalytic activity/Vol] 20 U/L 13-39 [facility] Basic Metabolic Panelon 03-23 Anion gap [Moles/Vol] 13.3 mmol/L Normal 6.0-15.0 [facility] Comment on above: Performed By: #### B MP #### [facility] [address] [place] [address] [place] Calcium [Mass/Vol] 8.9 mg/dL Normal 8.6-10.3 [facility] Comment on above: Performed By: #### B MP #### [facility] [address] Chloride [Moles/Vol] 86 mmol/L Low 98-107 [facility] Comment on above: Performed By: #### B MP #### [facility] [address] CO2 [Moles/Vol] 26.0 mmol/L Normal 21.0-31.0 [facility] Comment on above: Performed By: #### B MP #### [facility] [address] Creatinine [Mass/Vol] 0.65 mg/dL Normal 0.60-1.20 [facility] Comment on above: Performed By: #### B MP #### [place] [address] [place] Creatinine Clr Calc Pharmacy 42.39 [facility] [place] [facility] Comment on above: Result Comment: PERF ORMED BY: [place] [address] PATHOLOGIST HAUL DRIVER GOSIA MCADAMS M.D. Performed By: #### B MP #### [address] GFR/1.73 sq M.predicted MDRD (S/P/Bld) [Vol rate/Area] mL/min/{1.73_m2} [facility] [place] [facility] Comment on above: Performed By: #### B MP #### [address] Glucose [Mass/Vol] 170 mg/dL High 70-100 [facility] Comment on above: Result Comment: [place] Glucose Reference Range is dependent on time and content of last meal. Glucose of more than 200 mg/dL in a nonstressed, ambulatory subject supports the diagnosis of Diabetes Mellitus. ADA recommended reference range Performed By: #### B MP #### [place] [address] [place] Potassium [Moles/Vol] 3.3 mmol/L Low 3.5-5.1 [facility] Comment on above: Performed By: #### B MP #### [address] Sodium [Moles/Vol] 122 mmol/L Off scale low 136-145 [facility] Comment on above: Result Comment: Crit ical Result Called to and read back by: NOT FIRST at: 04/03/2023 19:17:43 by:[id number] Performed By: #### B MP #### [address] Urea nitrogen [Mass/Vol] 7 mg/dL Normal 7-25 [facility] Comment on above: Performed By: #### B MP #### [facility] [address] [place] [address] Anion gap [Moles/Vol] 14.6 mmol/L Normal 6.0-15.0 [facility] Comment on above: Performed By: #### B MP #### [address] Calcium [Mass/Vol] 8.8 mg/dL Normal 8.6-10.3 [facility] Comment on above: Performed By: #### B MP #### [facility] [address] [place] [address] Chloride [Moles/Vol] 81 mmol/L Low 98-107 [facility] Comment on above: Performed By: #### B MP #### [address] CO2 [Moles/Vol] 26.8 mmol/L Normal 21.0-31.0 [facility] Comment on above: Performed By: #### B MP #### [facility] [address] [place] [address] Creatinine [Mass/Vol] 0.61 mg/dL Normal 0.60-1.20 [facility] Comment on above: Performed By: #### B MP #### [facility] [address] [place] [address] Creatinine Clr Calc Pharmacy 42.39 Normal [facility] Comment on above: Result Comment: PERF ORMED BY: [place] [address] PATHOLOGIST HAUL DRIVER GOSIA MCADAMS M.D. Performed By: #### B MP #### [facility] [address] [place] [address] [place] GFR/1.73 sq M.predicted MDRD (S/P/Bld) [Vol rate/Area] mL/min/{1.73_m2} Normal [facility] Comment on above: Performed By: #### B MP #### [facility] [address] Glucose [Mass/Vol] 108 mg/dL High 70-100 [facility] Comment on above: Result Comment: [place] Glucose Reference Range is dependent on time and content of last meal. Glucose of more than 200 mg/dL in a nonstressed, ambulatory subject supports the diagnosis of Diabetes Mellitus. ADA recommended reference range Performed By: #### B MP #### [address] Potassium [Moles/Vol] 3.4 mmol/L Low 3.5-5.1 [facility] Comment on above: Performed By: #### B MP #### [address] Sodium [Moles/Vol] 119 mmol/L Off scale low 136-145 [facility] Comment on above: Result Comment: Crit ical Result Called to and read back by: NOT FIRST TIME CRITICAL at: 04/03/2023 14:56:28 by:[email or web address] Performed By: #### B MP #### [address] Urea nitrogen [Mass/Vol] 7 mg/dL Normal 7-25 [facility] Comment on above: Performed By: #### B MP #### [address] Anion gap [Moles/Vol] 16.6 mmol/L High 6.0-15.0 [facility] Comment on above: Performed By: #### B MP #### [address] Calcium [Mass/Vol] 9.0 mg/dL Normal 8.6-10.3 [facility] Comment on above: Performed By: #### B MP #### [address] [place] [address] [place] Chloride [Moles/Vol] 81 mmol/L Low 98-107 [facility] Comment on above: Performed By: #### B MP #### [facility] [address] CO2 [Moles/Vol] 25.7 mmol/L Normal 21.0-31.0 [facility] Comment on above: Performed By: #### B MP #### [facility] [address] Creatinine [Mass/Vol] 0.63 mg/dL Normal 0.60-1.20 [facility] Comment on above: Performed By: #### B MP #### [address] Creatinine Clr Calc Pharmacy 42.39 Normal [facility] Comment on above: Result Comment: PERF ORMED BY: [place] [address] PATHOLOGIST HAUL DRIVER GOSIA MCADAMS M.D. Performed By: #### B MP #### [address] GFR/1.73 sq M.predicted MDRD (S/P/Bld) [Vol rate/Area] mL/min/{1.73_m2} [facility] [place] [facility] Comment on above: Performed By: #### B MP #### [address] Glucose [Mass/Vol] 123 mg/dL High 70-100 [facility] Comment on above: Result Comment: [place] Glucose Reference Range is dependent on time and content of last meal. Glucose of more than 200 mg/dL in a nonstressed, ambulatory subject supports the diagnosis of Diabetes Mellitus. ADA recommended reference range Performed By: #### B MP #### [facility] [address] Potassium [Moles/Vol] 3.3 mmol/L Low 3.5-5.1 [facility] Comment on above: Performed By: #### B MP #### [facility] [address] [place] [address] [place] Sodium [Moles/Vol] 120 mmol/L Off scale low 136-145 [facility] Comment on above: Result Comment: Crit ical Result Called to and read back by: NOT FIRST TIME CRITICAL at: 04/03/2023 13:00:21 by:SUN Performed By: #### B MP #### [facility] [address] Urea nitrogen [Mass/Vol] 7 mg/dL Normal 7-25 [facility] Comment on above: Performed By: #### B MP #### [facility] [address] Anion gap [Moles/Vol] 10.9 mmol/L Normal 6.0-15.0 [facility] Comment on above: Performed By: #### B MP #### [facility] [address] Calcium [Mass/Vol] 8.6 mg/dL Normal 8.6-10.3 [facility] Comment on above: Performed By: #### B MP #### [facility] [address] CO2 [Moles/Vol] 28.3 mmol/L Normal 21.0-31.0 [facility] Comment on above: Performed By: #### B MP #### [facility] [address] Creatinine [Mass/Vol] 0.60 mg/dL Normal 0.60-1.20 [facility] Comment on above: Performed By: #### B MP #### [facility] [address] [place] [address] [place] Glucose [Mass/Vol] 121 mg/dL High 70-100 [facility] Comment on above: Result Comment: [place] Glucose Reference Range is dependent on time and content of last meal. Glucose of more than 200 mg/dL in a nonstressed, ambulatory subject supports the diagnosis of Diabetes Mellitus. ADA recommended reference range Performed By: #### B MP #### [facility] [address] Potassium [Moles/Vol] 3.2 mmol/L Low 3.5-5.1 [facility] Comment on above: Performed By: #### B MP #### [facility] [address] Sodium [Moles/Vol] 118 mmol/L Off scale low 136-145 [facility] Comment on above: Result Comment: Crit ical Result Called to and read back by: NOT FIRST TIME at: 04/03/2023 08:56:25 by:[id number] Performed By: #### B MP #### [facility] [address] Urea nitrogen [Mass/Vol] 5 mg/dL Low 7-25 [facility] Comment on above: Performed By: #### B MP #### [facility] [address] Anion gap [Moles/Vol] 14.1 mmol/L Normal 6.0-15.0 [facility] Comment on above: Performed By: #### B MP #### [facility] [address] Calcium [Mass/Vol] 8.3 mg/dL Low 8.6-10.3 [facility] Comment on above: Performed By: #### B MP #### [facility] [address] Chloride [Moles/Vol] 82 mmol/L Low 98-107 [facility] Comment on above: Performed By: #### B MP #### [facility] [address] CO2 [Moles/Vol] 25.8 mmol/L Normal 21.0-31.0 [facility] Comment on above: Performed By: #### B MP #### [facility] [address] Creatinine [Mass/Vol] 0.59 mg/dL Low 0.60-1.20 [facility] Comment on above: Performed By: #### B MP #### [place] [address] [place] Creatinine Clr Calc Pharmacy 42.94 [facility] [place] [facility] Comment on above: Result Comment: PERF ORMED BY: [place] [address] PATHOLOGIST HAUL DRIVER GOSIA MCADAMS M.D. Performed By: #### B MP #### [address] GFR/1.73 sq M.predicted MDRD (S/P/Bld) [Vol rate/Area] mL/min/{1.73_m2} [facility] [place] [facility] Comment on above: Performed By: #### B MP #### [address] Glucose [Mass/Vol] 102 mg/dL High 70-100 [facility] Comment on above: Result Comment: [facility] Glucose Reference Range is dependent on time and content of last meal. Glucose of more than 200 mg/dL in a nonstressed, ambulatory subject supports the diagnosis of Diabetes Mellitus. ADA recommended reference range Performed By: #### B MP #### [place] [address] [place] Potassium [Moles/Vol] 2.9 mmol/L Off scale low 3.5-5.1 [facility] Comment on above: Result Comment: Crit ical Result Called to and read back by: TADEO BEAUCHAMP at: 04/03/2023 03:37:07 by:[id number] Performed By: #### B MP #### [address] Sodium [Moles/Vol] 119 mmol/L Off scale low 136-145 [facility] Comment on above: Result Comment: Crit ical Result Called to and read back by: TADEO BEAUCHAMP at: 04/03/2023 03:37:07 by:[id number] Performed By: #### B MP #### [place] [address] [place] Urea nitrogen [Mass/Vol] 6 mg/dL Low 7-25 [facility] Comment on above: Performed By: #### B MP #### [facility] [address] [place] [address] [place] Basophils Auto (Bld) [#/Vol] Ordered By: Natividad Gregory on 04-03-2023 Basophils (Bld) [#/Vol] 0.1 10*3/uL 0.0-0.2 [facility] Basophils/100 WBC Auto (Bld) Ordered By: Natividad Gregory on 04-03-2023 Basophils/100 WBC (Bld) 0.6 % . F [facility] Bilirubin.total [Mass/volume ] in Serum or PlasmaOrdered By: Natividad Gregory on 04-03-2023 Bilirubin [Mass/Vol] 0.7 mg/dL 0.3-1.0 [facility] Complete Blood Count Auto Di ffon 04-03-2023 Basophils (Bld) [#/Vol] 0.1 10*3/uL Normal 0.0-0.2 [facility] Comment on above: Result Comment: PERF ORMED BY: [place] [address] PATHOLOGIST HAUL DRIVER GOSIA MCADAMS M.D. Performed By: #### B MP #### [address] Basophils/100 WBC (Bld) 0.6 % Normal . [facility] Comment on above: Performed By: #### B MP #### [facility] [address] [place] [address] [place] Eosinophils (Bld) [#/Vol] 0.1 10*3/uL Normal 0.0-0.45 [facility] Comment on above: Performed By: #### B MP #### [place] [address] [place] Eosinophils/100 WBC (Bld) 0.8 % Normal . [facility] Comment on above: Performed By: #### B MP #### [address] Erythrocyte distribution width (RBC) [Ratio] 13.9 % Normal 11.9-15.3 [facility] Comment on above: Performed By: #### B MP #### [facility] [address] Hematocrit (Bld) [Volume fraction] 35.5 % Normal 34.0-46.4 [facility] Comment on above: Performed By: #### B MP #### [facility] [address] Hemoglobin (Bld) [Mass/Vol] 12.7 g/dL Normal 11.8-15.4 [facility] Comment on above: Performed By: #### B MP #### [facility] [address] Lymphocytes (Bld) [#/Vol] 1.7 10*3/uL Normal 1.00-4.8 [facility] Comment on above: Performed By: #### B MP #### [address] Lymphocytes/100 WBC (Bld) 15.6 % Normal . [facility] Comment on above: Performed By: #### B MP #### [address] MCH (RBC) [Entitic mass] 31.6 pg Normal 24.7-34.3 [facility] Comment on above: Performed By: #### B MP #### [address] MCV (RBC) [Entitic vol] 88.3 fL Normal 80-100 [facility] Comment on above: Performed By: #### B MP #### [address] Mean Corpuscular HGB Conc 35.8 g/dL High 32.0-35.0 [facility] Comment on above: Performed By: #### B MP #### [address] Monocytes (Bld) [#/Vol] 1.1 10*3/uL High 0.0-0.8 [facility] Comment on above: Performed By: #### B MP #### [facility] [address] Monocytes/100 WBC (Bld) 10.3 % Normal . [facility] Comment on above: Performed By: #### B MP #### [facility] [address] Neutrophils (Bld) [#/Vol] 7.7 10*3/uL Normal 1.8-7.7 [facility] Comment on above: Performed By: #### B MP #### [address] Neutrophils/100 WBC (Bld) 72.7 % Normal . [facility] Comment on above: Performed By: #### B MP #### [address] NRBC% 0.3 /100{WBC} Normal 0-0.5 [facility] Comment on above: Performed By: #### B MP #### [address] Platelet mean volume (Bld) [Entitic vol] 7.0 fL Normal 6.3-10.7 [facility] Comment on above: Performed By: #### B MP #### [address] Platelets (Bld) [#/Vol] 424 10*3/uL Normal 150-450 [facility] Comment on above: Performed By: #### B MP #### [address] RBC (Bld) [#/Vol] 4.02 10*6/uL Normal 3.60-5.00 [facility] Comment on above: Performed By: #### B MP #### [address] WBC (Bld) [#/Vol] 10.6 10*3/uL Normal 3.8-11.6 [facility] Comment on above: Performed By: #### B MP #### [place] [id number] [place] Comprehensive Metabolic Pane bebeto 04-03-2023 Albumin [Mass/Vol] 3.7 g/dL Normal 3.5-5.7 [facility] Comment on above: Performed By: #### B MP #### [address] Albumin/Globulin [Mass ratio] 1.5 {ratio} Normal [facility] Comment on above: Performed By: #### B MP #### [address] ALP [Catalytic activity/Vol] 56 U/L Normal 34-104 [facility] Comment on above: Performed By: #### B MP #### [address] ALT [Catalytic activity/Vol] 14 U/L Normal 7-52 [facility] Comment on above: Performed By: #### B MP #### [address] Anion gap [Moles/Vol] 12.9 mmol/L Normal 6.0-15.0 [facility] Comment on above: Performed By: #### B MP #### [address] AST [Catalytic activity/Vol] 20 U/L Normal 13-39 [facility] Comment on above: Performed By: #### B MP #### [address] Bilirubin [Mass/Vol] 0.7 mg/dL Normal 0.3-1.0 [facility] Comment on above: Performed By: #### B MP #### [address] Calcium [Mass/Vol] 8.5 mg/dL Low 8.6-10.3 [facility] Comment on above: Performed By: #### B MP #### [address] Chloride [Moles/Vol] 81 mmol/L Low 98-107 [facility] Comment on above: Performed By: #### B MP #### [facility] [address] CO2 [Moles/Vol] 26.1 mmol/L Normal 21.0-31.0 [facility] Comment on above: Performed By: #### B MP #### [facility] [address] Creatinine [Mass/Vol] 0.58 mg/dL Low 0.60-1.20 [facility] Comment on above: Performed By: #### B MP #### [address] Creatinine Clr Calc Pharmacy 42.94 Normal [facility] Comment on above: Result Comment: PERF ORMED BY: [place] [address] PATHOLOGIST HAUL DRIVER GOSIA MCADAMS M.D. Performed By: #### B MP #### [address] GFR/1.73 sq M.predicted MDRD (S/P/Bld) [Vol rate/Area] mL/min/{1.73_m2} Normal [facility] Comment on above: Performed By: #### B MP #### [address] Globulin (S) [Mass/Vol] 2.4 g/dL Normal [facility] Comment on above: Performed By: #### B MP #### [address] Glucose [Mass/Vol] 136 mg/dL High 70-100 [facility] Comment on above: Result Comment: [place] Glucose Reference Range is dependent on time and content of last meal. Glucose of more than 200 mg/dL in a nonstressed, ambulatory subject supports the diagnosis of Diabetes Mellitus. ADA recommended reference range Performed By: #### B MP #### [address] Potassium [Moles/Vol] 3.0 mmol/L Low 3.5-5.1 [facility] Comment on above: Performed By: #### B MP #### [facility] [address] Protein [Mass/Vol] 6.1 g/dL Low 6.4-8.9 [facility] Comment on above: Performed By: #### B MP #### [facility] [address] Sodium [Moles/Vol] 117 mmol/L Off scale low 136-145 [facility] Comment on above: Result Comment: Crit ical Result Called to and read back by: EDMAR PATEL at: 04/03/2023 06:09:08 by:[id number] Performed By: #### B MP #### [address] Urea nitrogen [Mass/Vol] 6 mg/dL Low 7-25 [facility] Comment on above: Performed By: #### B MP #### [address] Eosinophils Auto (Bld) [#/Vo l]Ordered By: Natividad Gregory on 04-03-2023 Eosinophils (Bld) [#/Vol] 0.1 10*3/uL 0.0-0.45 [facility] Eosinophils/100 WBC Auto (Bl d)Ordered By: Natividad Gregory on 04-03-2023 Eosinophils/100 WBC (Bld) 0.8 % . [facility] Erythrocyte distribution wid th Auto (RBC) [Ratio]Ordered By: Natividad Gregory on 04-03-2023 Erythrocyte distribution width (RBC) [Ratio] 13.9 % 11.9-15.3 [facility] Globulin Calc (S) [Mass/Vol] Ordered By: Natividad Gregory on 04-03-2023 Globulin (S) [Mass/Vol] 2.4 g/dL F [facility] Hematocrit Auto (Bld) [Volum e fraction]Ordered By: Natividad Gregory on 04-03-2023 Hematocrit (Bld) [Volume fraction] 35.5 % 34.0-46.4 [facility] Hemoglobin [Mass/volume] in BloodOrdered By: Natividad Gregory on 04-03-2023 Hemoglobin (Bld) [Mass/Vol] 12.7 g/dL 11.8-15.4 [facility] Leukocytes [#/volume] correc sofiya for nucleated erythrocytes in Blood by Automated counOrdered By: Natividad Gregory on 04-03-2023 WBC corrected for nucl RBC Auto (Bld) [#/Vol] 10.6 10*3/uL 3.8-11.6 [facility] Lymphocytes Auto (Bld) [#/Vo l]Ordered By: Natividad Gregory on 04-03-2023 Lymphocytes (Bld) [#/Vol] 1.7 10*3/uL 1.00-4.8 [facility] Lymphocytes/100 WBC Auto (Bl d)Ordered By: Natividad Gregory on 04-03-2023 Lymphocytes/100 WBC (Bld) 15.6 % . [facility] MCH Auto (RBC) [Entitic mass ]Ordered By: Natividad Gregory on 04-03-2023 MCH (RBC) [Entitic mass] 31.6 pg 24.7-34.3 [facility] MCHC Auto (RBC) [Mass/Vol]Or dered By: Natividad Gregory on 04-03-2023 MCHC (RBC) [Mass/Vol] 35.8 g/dL 32.0-35.0 [facility] MCV Auto (RBC) [Entitic vol] Ordered By: Natividad Gregory on 04-03-2023 MCV (RBC) [Entitic vol] 88.3 fL 80-100 F [facility] Monocytes Auto (Bld) [#/Vol] Ordered By: Natividad Gregory on 04-03-2023 Monocytes (Bld) [#/Vol] 1.1 10*3/uL 0.0-0.8 [facility] Monocytes/100 WBC Auto (Bld) Ordered By: Natividad Gregory on 04-03-2023 Monocytes/100 WBC (Bld) 10.3 % . F [facility] Neutrophils Auto (Bld) [#/Vo l]Ordered By: Natividad Gregory on 04-03-2023 Neutrophils (Bld) [#/Vol] 7.7 10*3/uL 1.8-7.7 [facility] Neutrophils/100 WBC Auto (Bl d)Ordered By: Natividad Gregory on 04-03-2023 Neutrophils/100 WBC (Bld) 72.7 % . [facility] Nucleated erythrocytes [Pres ence] in Blood by Automated countOrdered By: Natividad Gregory on 04-03-2023 Nucleated RBC Auto Ql (Bld) 0.3 /100{WBC} 0-0.5 [facility] Platelet mean volume Auto (B ld) [Entitic vol]Ordered By: Natividad Gregory on 04-03-2023 Platelet mean volume (Bld) [Entitic vol] 7.0 fL 6.3-10.7 [facility] Platelets Auto (Bld) [#/Vol] Ordered By: Natividad Gregory on 04-03-2023 Platelets (Bld) [#/Vol] 424 10*3/uL 150-450 [facility] Protein [Mass/volume] in Ser um or PlasmaOrdered By: Natividad Gregory on 04-03-2023 Protein [Mass/Vol] 6.1 g/dL 6.4-8.9 [facility] RBC Auto (Bld) [#/Vol]Ordere d By: Natividad Gregory on 04-03-2023 RBC (Bld) [#/Vol] 4.02 10*6/uL 3.60-5.00 [facility] Serum or plasma albumin/glob ulin mass ratioOrdered By: Natividad Gregory on 04-03-2023 Albumin/Globulin [Mass ratio] 1.5 {ratio} [facility] Sodiumon 04-03-2023 Sodium [Moles/Vol] 124 mmol/L Off scale low 136-145 [facility] Comment on above: Result Comment: Crit ical Result Called to and read back by: SAMMIE GOULD at: 04/03/2023 22:42:55 by:[email or web address] PERFORMED BY: [place] [address] [place] [address] PATHOLOGIST HAUL DRIVER GOSIA MCADAMS M.D. Performed By: #### B MP #### [facility] [address] WBC Auto (Bld) [#/Vol]Ordere d By: Natividad Gregory on 04-03-2023 WBC (Bld) [#/Vol] 10.6 10*3/uL 3.8-11.6 [facility] Basic Metabolic Panelon 03-23 Anion gap [Moles/Vol] 12.8 mmol/L Normal 6.0-15.0 [facility] Comment on above: Performed By: #### B MP, MG, TSH3 #### [address] Calcium [Mass/Vol] 8.8 mg/dL Normal 8.6-10.3 [facility] Comment on above: Performed By: #### B MP, MG, TSH3 #### [address] Chloride [Moles/Vol] 81 mmol/L Low 98-107 [facility] Comment on above: Performed By: #### B MP, MG, TSH3 #### [address] CO2 [Moles/Vol] 26.3 mmol/L Normal 21.0-31.0 [facility] Comment on above: Performed By: #### B MP, MG, TSH3 #### [facility] [address] Creatinine [Mass/Vol] 0.59 mg/dL Low 0.60-1.20 [facility] Comment on above: Performed By: #### B MP, MG, TSH3 #### [facility] [address] Creatinine Clr Calc Pharmacy 42.94 [facility] [place] [facility] Comment on above: Performed By: #### B MP, MG, TSH3 #### [facility] [address] [place] [address] [place] GFR/1.73 sq M.predicted MDRD (S/P/Bld) [Vol rate/Area] mL/min/{1.73_m2} Normal [facility] Comment on above: Performed By: #### B MP, MG, TSH3 #### [facility] [address] Glucose [Mass/Vol] 122 mg/dL High 70-100 [facility] Comment on above: Result Comment: [facility] Glucose Reference Range is dependent on time and content of last meal. Glucose of more than 200 mg/dL in a nonstressed, ambulatory subject supports the diagnosis of Diabetes Mellitus. ADA recommended reference range Performed By: #### B MP, MG, TSH3 #### [address] Potassium [Moles/Vol] 3.1 mmol/L Low 3.5-5.1 [facility] Comment on above: Performed By: #### B MP, MG, TSH3 #### [address] Sodium [Moles/Vol] 117 mmol/L Off scale low 136-145 [facility] Comment on above: Result Comment: Crit ical Result Called to and read back by: GERMAIN BEAUCHAMP at: 04/02/2023 21:52:44 by:[id number] Performed By: #### B MP, MG, TSH3 #### [address] Urea nitrogen [Mass/Vol] 7 mg/dL Normal 7-25 [facility] Comment on above: Performed By: #### B MP, MG, TSH3 #### [facility] [address] [place] [address] [place] Magnesiumon 04-02-2023 Magnesium [Mass/Vol] 1.9 mg/dL Normal 1.9-2.7 [facility] Comment on above: Performed By: #### B MP, MG, TSH3 #### [address] Magnesium [Mass/volume] in S willa or PlasmaOrdered By: Natividad Gregory on 04-02-2023 Magnesium [Mass/Vol] 1.9 mg/dL 1.9-2.7 [facility] No Panel InformationOrdered By: Natividad Gregory on 04-02-2023 Urine Osmolality 298 mosm 250-900 [facility] Osmolality, Urineon 04-02-19 24 Osmolality, Urine 298 mosm Normal 250-900 [facility] Comment on above: Result Comment: PERF ORMED BY: [place] [address] PATHOLOGIST HAUL DRIVER GOSIA MCADAMS M.D. Performed By: #### B MP #### [facility] [address] [place] [address] [place] Sodium [Moles/volume] in Uri neOrdered By: Natividad Gregory on 04-02-2023 Sodium (U) [Moles/Vol] 79 mmol/L [facility] Comment on above: No reference range e stablished Sodium, Urine (Random)on Sodium (U) [Moles/Vol] 79 mmol/L Normal [facility] Comment on above: Result Comment: No r eference range established PERFORMED BY: [place] [address] PATHOLOGIST HAUL DRIVER GOSIA MCADAMS M.D. Performed By: #### B MP #### [facility] [address] [place], [place] [address] [place] Thyroid Stimulating Hormoneo n 04-02-2023 TSH Qn 5.76 m[IU]/L High 0.45-5.33 [facility] Comment on above: Result Comment: PERF ORMED BY: [place] [address] PATHOLOGIST HAUL DRIVER GOSIA MCADAMS M.D. Performed By: #### B MP, MG, TSH3 #### [facility] [address] [place], [place] [id number] [place] Thyrotropin [Units/volume] i n Serum or PlasmaOrdered By: Natividad Gregory on 04-02-2023 TSH Qn 5.76 m[IU]/L 0.45-5.33 [facility] Office Visiton 01-11-2023 Follow-up visit [id number] Hiram Madrid Crystal 1935 F Date Provider Department Center 01/11/2023 Kalee-LESLY ALANIZ SONIA [place] Family History Problem Relation Age of Onset Hypertension Mother Lupus Mother Coronary artery disease Mother Heart attack Mother Hypertension Father Aneurysm Father Coronary artery disease Father Hypertension Sister Lupus Sister Family Status - Relation Status Age at Mother Father Sister Level of Service:52171 SC OFFICE/OUTPATIENT ESTABLISHED MOD MDM 30-[address] [facility] Lab Reportson 12-23-2022 Lab Reports [id number] 0TIFF Normal [facility] Urology Office/Clinic Noteon 12-23-2022 Urology Office/Clinic [...] Pt presented to ER due to syncope. Spencer was found incidentally on CT. CT AP [...] Contact Information ABDULLAHI NOONAN, MIKAYLA Pereira, URL [address] [place] [address] [phone] Additional Instructions: 6 mos w/ renal fxn [...] Tab losartan 100 mg Tab Potassium Chloride (Bmp-Uvca-Bnd 10), Oral, BID pravastatin 80 mg Tab [...] virus vaccine, (more content not included)... Normal [facility] Comment on above: Result Comment: Elec tronically Signed By: MIKAYLA WEISS PA-C\.br\Date and Time Signed: 12/23/22 12:13 EDT\.br\Electronically Co-Signed By: Jacquie Gan\.br\Date and Time Co-Signed: 12/22/22 12:27 EDT Ambulatory Visit Summaryon 02-21-2022 Ambulatory Visit Summary HIRAM MADRID:1935 Visit Date:12/22/2022 Ambulatory Visit Instructions Your Diagnosis Hydronephrosis, right Ureteral stenosis Tests Performed Urnls Dip Stick Auto w/o Microscopy POC 80682 US Renal -- Results Pending -- Please [...] 100 mg Tab) potassium chloride (Potassium Chloride (Hzj-Aahr-Ubs 10)) pravastatin (pravastatin 80 mg Tab) Procedures Performed Appendectomy, Bilateral salpingo-oophorectomy, Cataract extraction and insertion of intraocular lens, Cholecystectomy, Colonoscopy, Procedure on back, Tonsillectomy. Discharge Vitals Blood Pressure 124/84 Height 155 cm Height 61 in Weight 64.8 kg Weight 142.56 lb BMI 26.97 What to do next Scheduled Follow-Up Appointments June. 2023 9:30 AM EDT With: MIKAYLA WEISS PA-C Where: [facility] Patient Educationon 12-23-19 Patient Education Urology Hydronephrosis [...] Follow these instructions at home: ? Take nxbs-pjn-jjzqruw and prescription medicines only as told by [...] provider. Document Revised: 05/26/2020 Document Reviewed: 05/26/2020 [employer] Patient Education ? 2022 [employer]. [facility] RAD - Ultrasound Reporton RAD - Ultrasound Report [id number] 0TIFF [facility] Reminderson 12-22-2022 Reminders - From: Jacquie Gan To: ERIN Weiss; Sent: 12/22/2022 12:30:05 EDT Show up: 05/23/2023 12:30:00 EDT Subject: JAC and BUN/Creatinine prior to appt Reminder Message Please Remember to:_have pt schedule JAC prior to appt. Please look for BUN/Cr labs from PCP. If unable to locate recent labs, send pt order to complete this. Normal [facility] Orders Onlyon 10-25-2022 Orders Only [id number] Hiram Madrid 1935 F Date Provider Department Center 10/25/2022 Kalee-LESLY ALANIZ [facility] Family History Problem Relation Age of Onset Hypertension Mother Lupus Mother Coronary artery disease Mother Heart attack Mother Hypertension Father Aneurysm Father Coronary artery disease Father Hypertension Sister Lupus Sister Family Status - Relation Status Age at Mother Father Sister Normal [facility] 37on 10-14-2022 37 Increase coreg/carvedilol to 25 mg twice a day- you have 12.5 mg tabs now so take 2 twice a day until this bottle is gone- your next refill will be the higher dose of 25 mg bid. Have labs drawn Normal [facility] Office Visiton 10-14-2022 Follow-up visit [id number] Hiram Madrid 1935 F Date Provider Department Center 10/14/2022 LESLY GASPAR SONIA [place] Family History Problem Relation Age of Onset Hypertension Mother Lupus Mother Coronary artery disease Mother Heart attack Mother Hypertension Father Aneurysm Father Coronary artery disease Father Hypertension Sister Lupus Sister Family Status - Relation Status Age at Mother Father Sister Level of Service:84617 SC OFFICE/OUTPATIENT ESTABLISHED MOD MDM 30-39 MIN [facility] Consent for Procedure/Surger yon 09-07-2022 Consent for Procedure/Surgery [id number]. 00CD:127 [facility] Ambulatory Visit Summaryon 0 09-06-2022 Ambulatory [...] 100 mg Tab) potassium chloride (Potassium Chloride (Wtg-Shka-Nyo 10)) pravastatin (pravastatin 80 mg Tab) Procedures Performed Appendectomy, Bilateral salpingo-oophorectomy, Cataract extraction and insertion of intraocular lens, Cholecystectomy, Colonoscopy, Procedure on back, Tonsillectomy. Discharge Vitals Height 155 cm Height 61 in Weight 65 kg Weight 143 lb BMI 27.06 What to do next Scheduled Follow-Up Appointments Monday 2:00 PM EDT With: CHRISTY DUMONT, Raymond Mckeon Where: [facility] Patient Educationon 09-07-19 Patient Education [...] Follow these instructions at home: ? Take lotz-poo-ztongnb and prescription medicines only as told by [...] provider. Document Revised: 05/26/2020 Document Reviewed: 05/26/2020 [employer] Patient Education ? 2022 [employer]. [facility] Urology Office/Clinic Noteon 09-06-2022 Urology Office/Clinic [...] Raymond Mckeon, URL [facility] [address] [place] [address]- Additional Instructions: 3 mos no labs Patient [...] Tab losartan 100 mg Tab Potassium Chloride (Tvq-Eged-Mhe 10), Oral, BID pravastatin 80 mg Tab [...] inactivated 12/06/2016 Rec (more content not included)... Normal [facility] Comment on above: Result Comment: Elec tronically Signed By: Raymond HARRISON MD\.br\Date and Time Signed: 09/06/22 13:02 EDT\.br\Electronically Co-Signed By: Josefa Stewart.br\Date and Time Co-Signed: 09/06/22 13:01 EDT Operative Reporton Operative Report [id number] CD:127 Normal [facility] RAD - MISCon 08-12-2022 RAD - MIS [id number] CD:127 Normal [facility] Ambulatory Visit Summaryon 0 08-10-2022 Ambulatory Visit Summary HIRAM MADRID :1935 Visit Date:08/10/2022 Ambulatory Visit Instructions Your Diagnosis Hydronephrosis, right Aspirin long-term use Tests Performed Urnls Dip Stick Auto w/o Microscopy POC 76850 Your Care Team Attending Physician - CHRISTY DUMONT, Raymond Mckeon Primary Care Physician - Addy Daniels MD This Is Your Medications List Contact prescribing physician if questions or concerns amlodipine (amLODIPine 10 mg Tab) aspirin (aspirin 81 mg oral capsule) carvedilol hydrochlorothiazide levothyroxine (levothyroxine 88 mcg (0.088 mg) Tab) losartan (losartan 100 mg Tab) potassium chloride (Potassium Chloride (Ebg-Xuvm-Fte 10)) pravastatin (pravastatin 80 mg Tab) Procedures [...] Where: [facility] [address] [place] [address]- Medications What How Much When Instructions Unchanged [...] or concerns Unchanged potassium chloride (Potassium Chloride (Lyc-Zqro-Kol 10)) 2 times a day Contact prescribing physician if questions or concerns Unchanged pravastatin (pravastatin 80 mg Tab) 30 EA, TAKE 1 TABLET BY MOUTH ONCE DAILY Contact prescribing physician if questions or concerns Test Results Urnls Dip Stick Auto w/o Microscopy POC 15206 (08/10/2022) Bilirubin Urine Dipstick - Negative Blood Urine Dipstick - Negative Glucose Urine Dipstick - Negative Ketones Urine Dipstick - Negative Leukocytes Urine Dipstick - Trace Nitrite Urine Dipstick - Negative Protein Urine Dipstick - Negative Specific [place] Urine Dipstick - 1.025 Urine Appearance Urine [...] what caus (more content not included)... Normal [facility] Ambulatory Visit Summary HIRAM MADRID :1935 Visit Date:08/10/2022 Ambulatory Visit Instructions Your Diagnosis Hydronephrosis, right Aspirin long-term use Tests Performed Urnls Dip Stick Auto w/o Microscopy POC 36057 Your Care Team Attending Physician - CHRISTY DUMONT, Raymond Mckeon Primary Care Physician - Addy Daniels MD This Is Your Medications List Contact prescribing physician if questions or concerns amlodipine (amLODIPine 10 mg Tab) aspirin (aspirin 81 mg oral capsule) carvedilol hydrochlorothiazide levothyroxine (levothyroxine 88 mcg (0.088 mg) Tab) losartan (losartan 100 mg Tab) potassium chloride (Potassium Chloride (Lyn-Vdem-Iox 10)) pravastatin (pravastatin 80 mg Tab) Procedures Performed Appendectomy, Bilateral salpingo-oophorectomy, Cataract extraction and insertion of intraocular lens, Cholecystectomy, Colonoscopy, Procedure on back, Tonsillectomy. Discharge Vitals Heart Rate (Peripheral) 71 Blood Pressure 154/69 Height 155 cm Height 61 in Weight 65 kg Weight 143 lb BMI 27.06 What to do next You Need to Schedule the Following Appointments Follow Up with CHRISTY DUMONT, Raymond Mckeon, URL When: Where: [facility] [address] , [place] [address]- Medications What How Much When Instructions Unchanged [...] or concerns Unchanged potassium chloride (Potassium Chloride (Hse-Ajcb-Orp 10)) 2 times a day Contact prescribing physician if questions or concerns Unchanged pravastatin (pravastatin 80 mg Tab) 30 EA, TAKE 1 TABLET BY MOUTH ONCE DAILY Contact prescribing physician if questions or concerns Test Results Urnls Dip Stick Auto w/o Microscopy POC 40809 (08/10/2022) Bilirubin Urine Dipstick - Negative Blood Urine Dipstick - Negative Glucose Urine Dipstick - Negative Ketones Urine Dipstick - Negative Leukocytes Urine Dipstick - Trace Nitrite Urine Dipstick - Negative Protein Urine Dipstick - Negative Specific [place] Urine Dipstick - 1.025 Urine Appearance Urine [...] what caus (more content not included)... Normal [facility] Consent for Procedure/Surger yon 08-10-2022 Consent for Procedure/Surgery [id number] CD:127 [facility] Formson 08-10-2022 Forms [id number] CD:127 [facility] Patient Educationon 08-11-19 Patient Education Urology [...] Follow these instructions at home: ? Take rdsh-bxt-yauuhxo and prescription medicines only as told by [...] provider. Document Revised: 05/26/2020 Document Reviewed: 05/26/2020 [employer] Patient Education ? 2022 [employer]. [facility] Urology Office/Clinic Noteon 08-10-2022 Urology Office/Clinic Note Chief Complaint Kidney stones HPI Staff New Pt follow up to [facility] on 08/05/[address] due to kidney stones[address] CT [...] yo female new pt following up to [facility] ER visit on 08/05/22 due to nausea, [...] Aspirin long-term use (Z79.82: long term care pharmacist (current) use of aspirin) No other BTs. Follow-up With When Contact Information CHRISTY DUMONT, Raymond Mckeon, URL [facility] [address], [place] [address]- Additional Instructions: schedule R URS, possible laser [...] No qualifyin (more content not included)... Normal [facility] Comment on above: Result Comment: Elec tronically Signed By: Raymond HARRISON MD\.br\Date and Time Signed: 08/10/22 09:39 EDT\.br\Electronically Co-Signed By: Josefa Stewart\.br\Date and Time Co-Signed: 08/10/22 09:38 EDT XR KUBon 08-09-2022 XR KUB [facility] [place] [address] [place] [address] XRay Report Signed Patient: Hiram Madrid MR#: [id number] : 1935 Acct:[id number] Age/Sex: 86 / F ADM Date: 08/09/22 Loc: XD Room: Type: [facility] Attending Dr: Raymond Harrison MD Copies to: [...] Lopez Jr., D.O.08/09/2022 3:58 PM Dictation Location: [place] [address] Transcribed By: [facility] 08/09/22 1558 Dictated By: Kameron Lopez Jr, DO 08/09/22 1555 Signed By: 08/09/22 1558 Normal [facility] CT abdomen pelvis wo conon 0 08-06-2022 CT abdomen pelvis wo [facility] [place] [address] [place] [address] CT Scan Report Signed Patient: Hiram Madrid MR#: [id number] : 1935 Acct:[id number] Age/Sex: 86 / F ADM Date: 08/05/22 Loc: ER Room: Type: [facility] ER Attending Dr: Copies to: Camacho Ladd [...] Faye Wyman M.D.08/06/2022 8:43 AM Dictation Location: [place] [address] Transcribed By: DORETHA 08/06/22 0843 Dictated By: Faye Wyman MD 08/06/22 0830 Signed By: 08/06/22 0843 Normal [facility] Alanine aminotransferase [En zymatic activity/volume] in Serum or PlasmaOrdered By: Camacho Ladd on 08-05-2022 ALT [Catalytic activity/Vol] 16 U/L 7-52 [facility] Albumin [Mass/volume] in Ser um or Plasma by Bromocresol green (BCG) dye binding methoOrdered By: Camacho Ladd on 08-05-2022 Albumin BCG dye [Mass/Vol] 4.4 g/dL 3.5-5.7 [facility] Alkaline phosphatase [Enzyma tic activity/volume] in Serum or PlasmaOrdered By: Camacho Ladd on 08-05-2022 ALP [Catalytic activity/Vol] 61 U/L 34-104 [facility] Aspartate aminotransferase [ Enzymatic activity/volume] in Serum or PlasmaOrdered By: Camacho Ladd on 08-05-2022 AST [Catalytic activity/Vol] 21 U/L 13-39 [facility] Automated erythrocytes count in urine sediment (number/area)Ordered By: Camacho Ladd on 08-05-2022 RBC Auto (Urine sed) [#/Area] 0-1 [HPF] 0-4 [facility] Automated leukocytes count i n urine sediment (number/area)Ordered By: Camacho Ladd on 08-05-2022 WBC Auto (Urine sed) [#/Area] 1-2 [HPF] 0-4 [facility] Basic Metabolic Panelon 07-21 Anion gap [Moles/Vol] 17.8 mmol/L High 6.0-15.0 [facility] Comment on above: Performed By: #### H EPATIC, HS TROP, BMP, CBC, LIPASE #### [facility] [address] Calcium [Mass/Vol] 9.7 mg/dL Normal 8.6-10.3 [facility] Comment on above: Performed By: #### H EPATIC, HS TROP, BMP, CBC, LIPASE #### [address] Chloride [Moles/Vol] 87 mmol/L Low 98-107 [facility] Comment on above: Performed By: #### H EPATIC, HS TROP, BMP, CBC, LIPASE #### [address] CO2 [Moles/Vol] 23.2 mmol/L Normal 21.0-31.0 [facility] Comment on above: Performed By: #### H EPATIC, HS TROP, BMP, CBC, LIPASE #### [address] Creatinine [Mass/Vol] 1.03 mg/dL Normal 0.60-1.20 [facility] Comment on above: Performed By: #### H EPATIC, HS TROP, BMP, CBC, LIPASE #### [place] [address] [place] Creatinine Clr Calc Pharmacy 35.13 [facility] Comment on above: Performed By: #### H EPATIC, HS TROP, BMP, CBC, LIPASE #### [place] [address] [place] GFR/1.73 sq M.predicted MDRD (S/P/Bld) [Vol rate/Area] 53.284 mL/min/{1.73_m2} [facility] Comment on above: Performed By: #### H EPATIC, HS TROP, BMP, CBC, LIPASE #### [facility] [address] Glucose [Mass/Vol] 156 mg/dL High 70-100 [facility] Comment on above: Result Comment: [facility] Glucose Reference Range is dependent on time and content of last meal. Glucose of more than 200 mg/dL in a nonstressed, ambulatory subject supports the diagnosis of Diabetes Mellitus. ADA recommended reference range Performed By: #### H EPATIC, HS TROP, BMP, CBC, LIPASE #### [facility] [address] Potassium [Moles/Vol] 3.0 mmol/L Low 3.5-5.1 [facility] Comment on above: Performed By: #### H EPATIC, HS TROP, BMP, CBC, LIPASE #### [facility] [address] Sodium [Moles/Vol] 125 mmol/L Low 136-145 [facility] Comment on above: Performed By: #### H EPATIC, HS TROP, BMP, CBC, LIPASE #### [facility] [address] Urea nitrogen [Mass/Vol] 12 mg/dL Normal 7-25 [facility] Comment on above: Performed By: #### H EPATIC, HS TROP, BMP, CBC, LIPASE #### [facility] [address] Basophils Auto (Bld) [#/Vol] Ordered By: Camacho Ladd on 08-05-2022 Basophils (Bld) [#/Vol] 0.1 10*3/uL 0.0-0.2 [facility] Basophils/100 WBC Auto (Bld) Ordered By: Camacho Ladd on 08-05-2022 Basophils/100 WBC (Bld) 0.4 % . F [facility] Bilirubin Test strip Ql (U)O rdered By: Camacho Ladd on 08-05-2022 Bilirubin Ql (U) Negative Negative [facility] Bilirubin.direct [Mass/volum e] in Serum or PlasmaOrdered By: Camacho Ladd on 08-05-2022 Bilirubin.direct [Mass/Vol] 0.10 mg/dL 0.03-0.18 [facility] Bilirubin.total [Mass/volume ] in Serum or PlasmaOrdered By: Camacho Ladd on 08-05-2022 Bilirubin [Mass/Vol] 0.7 mg/dL 0.3-1.0 [facility] Calcium [Mass/volume] in Ser um or PlasmaOrdered By: Camacho Ladd on 08-05-2022 Calcium [Mass/Vol] 9.7 mg/dL 8.6-10.3 [facility] Carbon dioxide, total [Moles /volume] in Serum or PlasmaOrdered By: Camacho Ladd on 08-05-2022 CO2 [Moles/Vol] 23.2 mmol/L 21.0-31.0 [facility] Chloride [Moles/volume] in S willa or PlasmaOrdered By: Camacho Ladd on 08-05-2022 Chloride [Moles/Vol] 87 mmol/L 98-107 [facility] Color Auto (U)Ordered By: Ender Ladd on 08-05-2022 Color (U) Yellow Yellow [facility] Complete Blood Count Auto Di ffon 08-05-2022 Basophils (Bld) [#/Vol] 0.1 10*3/uL Normal 0.0-0.2 [facility] Comment on above: Result Comment: PERF ORMED BY: [facility] [address] [facility] [place] [address] PATHOLOGIST HAUL DRIVER GOSIA MCADAMS M.D. Performed By: #### H EPATIC, HS TROP, BMP, CBC, LIPASE #### [facility] [address] [place] [address] [place] Basophils/100 WBC (Bld) 0.4 % Normal . F [facility] Comment on above: Performed By: #### H EPATIC, HS TROP, BMP, CBC, LIPASE #### [facility] [address] [place] [address] [place] Eosinophils (Bld) [#/Vol] 0.1 10*3/uL Normal 0.0-0.45 [facility] Comment on above: Performed By: #### H EPATIC, HS TROP, BMP, CBC, LIPASE #### [address] Eosinophils/100 WBC (Bld) 0.6 % Normal . [facility] Comment on above: Performed By: #### H EPATIC, HS TROP, BMP, CBC, LIPASE #### [address] Erythrocyte distribution width (RBC) [Ratio] 13.6 % Normal 11.9-15.3 [facility] Comment on above: Performed By: #### H EPATIC, HS TROP, BMP, CBC, LIPASE #### [address] Hematocrit (Bld) [Volume fraction] 37.3 % Normal 34.0-46.4 [facility] Comment on above: Performed By: #### H EPATIC, HS TROP, BMP, CBC, LIPASE #### [address] Hemoglobin (Bld) [Mass/Vol] 13.0 g/dL Normal 11.8-15.4 [facility] Comment on above: Performed By: #### H EPATIC, HS TROP, BMP, CBC, LIPASE #### [address] Lymphocytes (Bld) [#/Vol] 3.1 10*3/uL Normal 1.00-4.8 [facility] Comment on above: Performed By: #### H EPATIC, HS TROP, BMP, CBC, LIPASE #### [address] Lymphocytes/100 WBC (Bld) 21.9 % Normal . [facility] Comment on above: Performed By: #### H EPATIC, HS TROP, BMP, CBC, LIPASE #### [address] MCH (RBC) [Entitic mass] 31.6 pg Normal 24.7-34.3 [facility] Comment on above: Performed By: #### H EPATIC, HS TROP, BMP, CBC, LIPASE #### [facility] [address] MCV (RBC) [Entitic vol] 90.4 fL Normal 80-100 F [facility] Comment on above: Performed By: #### H EPATIC, HS TROP, BMP, CBC, LIPASE #### [facility] [address] Mean Corpuscular HGB Conc 35.0 g/dL Normal 32.0-35.0 [facility] Comment on above: Performed By: #### H EPATIC, HS TROP, BMP, CBC, LIPASE #### [place] [address] [place] Monocytes (Bld) [#/Vol] 1.4 10*3/uL High 0.0-0.8 [facility] Comment on above: Performed By: #### H EPATIC, HS TROP, BMP, CBC, LIPASE #### [address] Monocytes/100 WBC (Bld) 20.58 % High 0.00-20.00 F [facility] Comment on above: Result Comment: For adults in ED, MDW > 20.0 may be associated with a higher risk of sepsis during the first 12 hrs of hospital admission Performed By: #### H EPATIC, HS TROP, BMP, CBC, LIPASE #### [address] Monocytes/100 WBC (Bld) 9.6 % Normal . F [facility] Comment on above: Performed By: #### H EPATIC, HS TROP, BMP, CBC, LIPASE #### [facility] [address] [place] [address] [place] Neutrophils (Bld) [#/Vol] 9.6 10*3/uL High 1.8-7.7 [facility] Comment on above: Performed By: #### H EPATIC, HS TROP, BMP, CBC, LIPASE #### [place] [address] [place] Neutrophils/100 WBC (Bld) 67.5 % Normal . [facility] Comment on above: Performed By: #### H EPATIC, HS TROP, BMP, CBC, LIPASE #### [facility] [address] [place] [address] NRBC% 0.1 /100{WBC} Normal 0-0.5 [facility] Comment on above: Performed By: #### H EPATIC, HS TROP, BMP, CBC, LIPASE #### [address] Platelet mean volume (Bld) [Entitic vol] 7.2 fL Normal 6.3-10.7 [facility] Comment on above: Performed By: #### H EPATIC, HS TROP, BMP, CBC, LIPASE #### [address] Platelets (Bld) [#/Vol] 500 10*3/uL High 150-450 [facility] Comment on above: Performed By: #### H EPATIC, HS TROP, BMP, CBC, LIPASE #### [address] RBC (Bld) [#/Vol] 4.13 10*6/uL Normal 3.60-5.00 [facility] Comment on above: Performed By: #### H EPATIC, HS TROP, BMP, CBC, LIPASE #### [address] WBC (Bld) [#/Vol] 14.2 10*3/uL High 3.8-11.6 [facility] Comment on above: Performed By: #### H EPATIC, HS TROP, BMP, CBC, LIPASE #### [address] Creatinine [Mass/volume] in Serum or PlasmaOrdered By: Camacho Ladd on 08-05-2022 Creatinine [Mass/Vol] 1.03 mg/dL 0.60-1.20 [facility] Dipstick and Microscopicon 0 08-05-2022 Appearance (U) Cloudy Critically abnormal Clear [facility] Comment on above: Order Comment: Name Collection Type:: Clean-Voided Midstream Performed By: #### B MP #### [place] [address] [place] Bacteria,Urine None Seen Normal None Seen [facility] Comment on above: Order Comment: Name Collection Type:: Clean-Voided Midstream Performed By: #### B MP #### [place] [address] [place] Bilirubin,Urine Negative Normal Negative [facility] Comment on above: Order Comment: Name Collection Type:: Clean-Voided Midstream Performed By: #### B MP #### [place] [address] [place] Color (U) Yellow Normal Yellow [facility] Comment on above: Order Comment: Name Collection Type:: Clean-Voided Midstream Performed By: #### B MP #### [place] [address] [place] Glucose Ql (U) Normal Normal Normal [facility] Comment on above: Order Comment: Name Collection Type:: Clean-Voided Midstream Performed By: #### B MP #### [place] [address] [place] Hyaline Casts,Urine None Seen Normal 0-8 [facility] Comment on above: Order Comment: Name Collection Type:: Clean-Voided Midstream Result Comment: PERF ORMED BY: [place] [address] PATHOLOGIST [employer] GOSIA MCADAMS M.D. Performed By: #### B MP #### [place] [address] [place] Ketones Ql (U) Negative Normal Negative [facility] Comment on above: Order Comment: Name Collection Type:: Clean-Voided Midstream Performed By: #### B MP #### [place] [address] [place] Leukocyte esterase Test strip Ql (U) 1+ High Negative [facility] Comment on above: Order Comment: Name Collection Type:: Clean-Voided Midstream Performed By: #### B MP #### [place] [address] [place] Nitrite,Urine Negative Normal Negative [facility] Comment on above: Order Comment: Name Collection Type:: Clean-Voided Midstream Performed By: #### B MP #### [address] Occult Blood,Urine Negative Normal Negative [facility] Comment on above: Order Comment: Name Collection Type:: Clean-Voided Midstream Result Comment: PERF ORMED BY: [place] [address] PATHOLOGIST [employer] GOSIA MCADAMS M.D. Performed By: #### B MP #### [address] pH (U) 7.0 [pH] Normal 5.0-9.0 [facility] Comment on above: Order Comment: Name Collection Type:: Clean-Voided Midstream Performed By: #### B MP #### [address] Protein,Urine Negative Normal Negative [facility] Comment on above: Order Comment: Name Collection Type:: Clean-Voided Midstream Performed By: #### B MP #### [address] RBC LM.HPF (Urine sed) [#/Area] 0 /[HPF] Normal 0-4 [facility] Comment on above: Order Comment: Name Collection Type:: Clean-Voided Midstream Performed By: #### B MP #### [place] [address] [place] Specificy [place],Urine 1.009 Normal 1.001-1.030 [facility] Comment on above: Order Comment: Name Collection Type:: Clean-Voided Midstream Performed By: #### B MP #### [place] [address] [place] Squamous Epithelial Cell,Urine 0-1 Normal 0-2 [facility] Comment on above: Order Comment: Name Collection Type:: Clean-Voided Midstream Performed By: #### B MP #### [facility] [address] Urobilinogen,Urine Normal Normal Normal [facility] Comment on above: Order Comment: Name Collection Type:: Clean-Voided Midstream Performed By: #### B MP #### [facility] [address] WBC,Urine 1-2 Normal 0-4 [facility] Comment on above: Order Comment: Name Collection Type:: Clean-Voided Midstream Performed By: #### B MP #### [facility] [address] ECG 12 lead ECGon 08-05-2022 ECG 12 lead ECG [facility] [place] [address] [place] [address] Electrocardiograph Report Signed Patient: Hiram Madrid MR#: [id number] : 1935 Acct:[id number] Age/Sex: 86 / F ADM Date: 08/05/22 Loc: ER Room: Type: [facility] ER Attending Dr: Ordering Provider: Camacho Ladd [...] branch block Confirmed by Camacho Ladd DO ([id number]) on 08/06/2022 1:49:12 AM Referred By: Electronically Signed By:Camacho Ladd DO Transcribed By: MUS Signed By Camacho Ladd DO [id number] Normal [facility] Eosinophils Auto (Bld) [#/Vo l]Ordered By: Camacho Ladd on 08-05-2022 Eosinophils (Bld) [#/Vol] 0.1 10*3/uL 0.0-0.45 [facility] Eosinophils/100 WBC Auto (Bl d)Ordered By: Camacho Ladd on 08-05-2022 Eosinophils/100 WBC (Bld) 0.6 % . [facility] Erythrocyte distribution wid th Auto (RBC) [Ratio]Ordered By: Camacho Ladd on 08-05-2022 Erythrocyte distribution width (RBC) [Ratio] 13.6 % 11.9-15.3 [facility] Globulin Calc (S) [Mass/Vol] Ordered By: Camacho Ladd on 08-05-2022 Globulin (S) [Mass/Vol] 2.9 g/dL F [facility] Glucose [Mass/volume] in Ser um or PlasmaOrdered By: Camacho Ladd on 08-05-2022 Glucose [Mass/Vol] 156 mg/dL 70-100 [facility] Comment on above: ADA recommended refe rence rangeRandom Glucose Reference Range is dependent on time and content of last meal. Glucose of more than 200 mg/dL in a nonstressed, ambulatory subject supports the diagnosis of Diabetes Mellitus. Hematocrit Auto (Bld) [Volum e fraction]Ordered By: Camacho Ladd on 08-05-2022 Hematocrit (Bld) [Volume fraction] 37.3 % 34.0-46.4 [facility] Hemoglobin [Mass/volume] in BloodOrdered By: Camacho Ladd on 08-05-2022 Hemoglobin (Bld) [Mass/Vol] 13.0 g/dL 11.8-15.4 [facility] Hepatic Panelon 08-05-2022 Albumin [Mass/Vol] 4.4 g/dL Normal 3.5-5.7 [facility] Comment on above: Performed By: #### H EPATIC, HS TROP, BMP, CBC, LIPASE #### [facility] [address] [place] [address] [place] Albumin/Globulin [Mass ratio] 1.5 {ratio} Normal [facility] Comment on above: Performed By: #### H EPATIC, HS TROP, BMP, CBC, LIPASE #### [facility] [address] ALP [Catalytic activity/Vol] 61 U/L Normal 34-104 [facility] Comment on above: Performed By: #### H EPATIC, HS TROP, BMP, CBC, LIPASE #### [address] ALT [Catalytic activity/Vol] 16 U/L Normal 7-52 [facility] Comment on above: Performed By: #### H EPATIC, HS TROP, BMP, CBC, LIPASE #### [address] AST [Catalytic activity/Vol] 21 U/L Normal 13-39 [facility] Comment on above: Performed By: #### H EPATIC, HS TROP, BMP, CBC, LIPASE #### [address] Bilirubin [Mass/Vol] 0.7 mg/dL Normal 0.3-1.0 [facility] Comment on above: Performed By: #### H EPATIC, HS TROP, BMP, CBC, LIPASE #### [address] Bilirubin,Indirect 0.6 mg/dL Normal [facility] Comment on above: Performed By: #### H EPATIC, HS TROP, BMP, CBC, LIPASE #### [address] Bilirubin.indirect [Mass/Vol] 0.10 mg/dL Normal 0.03-0.18 [facility] Comment on above: Performed By: #### H EPATIC, HS TROP, BMP, CBC, LIPASE #### [address] Globulin (S) [Mass/Vol] 2.9 g/dL Normal [facility] Comment on above: Performed By: #### H EPATIC, HS TROP, BMP, CBC, LIPASE #### [address] Protein [Mass/Vol] 7.3 g/dL Normal 6.4-8.9 [facility] Comment on above: Performed By: #### H EPATIC, HS TROP, BMP, CBC, LIPASE #### [address] Ketones Auto test strip (U) [Mass/Vol]Ordered By: Camacho Ladd on 08-05-2022 Ketones (U) [Mass/Vol] Negative Negative [facility] - UrinalysisOrder ed By: Camacho Ladd on 08-05-2022 Hyaline casts LM Ql (Urine sed) None seen [LPF] 0-8 [facility] Leukocytes [#/volume] correc sofiya for nucleated erythrocytes in Blood by Automated counOrdered By: Camacho Ladd on 08-05-2022 WBC corrected for nucl RBC Auto (Bld) [#/Vol] 14.2 10*3/uL 3.8-11.6 [facility] Lipaseon 08-05-2022 Lipase [Catalytic activity/Vol] 23.0 U/L Normal 11.0-82.0 [facility] Comment on above: Result Comment: PERF ORMED BY: [place] [address] PATHOLOGIST [employer] GOSIA MCADAMS M.D. Performed By: #### B MP #### [address] Lipase [Enzymatic activity/v olume] in Serum or PlasmaOrdered By: Camacho Ladd on 08-05-2022 Lipase [Catalytic activity/Vol] 23.0 U/L 11.0-82.0 [facility] Lymphocytes Auto (Bld) [#/Vo l]Ordered By: Camacho Ladd on 08-05-2022 Lymphocytes (Bld) [#/Vol] 3.1 10*3/uL 1.00-4.8 [facility] Lymphocytes/100 WBC Auto (Bl d)Ordered By: Camacho Ladd on 08-05-2022 Lymphocytes/100 WBC (Bld) 21.9 % . [facility] MCH Auto (RBC) [Entitic mass ]Ordered By: Camacho Ladd on 08-05-2022 MCH (RBC) [Entitic mass] 31.6 pg 24.7-34.3 [facility] MCHC Auto (RBC) [Mass/Vol]Or dered By: Camacho Ladd on 08-05-2022 MCHC (RBC) [Mass/Vol] 35.0 g/dL 32.0-35.0 [facility] MCV Auto (RBC) [Entitic vol] Ordered By: Camacho Ladd on 08-05-2022 MCV (RBC) [Entitic vol] 90.4 fL 80-100 F [facility] Monocyte distribution width [Entitic volume] in Blood by AutomatedOrdered By: Camacho Ladd on 08-05-2022 Monocyte distribution width Auto (Bld) [Entitic vol] 20.58 % 0.00-20.00 [facility] Comment on above: For adults in ED, MD W > 20.0 may be associated with a higher risk of sepsis during the first 12 hrs of hospital admission Monocytes Auto (Bld) [#/Vol] Ordered By: Camacho Ladd on 08-05-2022 Monocytes (Bld) [#/Vol] 1.4 10*3/uL 0.0-0.8 [facility] Monocytes/100 WBC Auto (Bld) Ordered By: Camacho Ladd on 08-05-2022 Monocytes/100 WBC (Bld) 9.6 % . [facility] Neutrophils Auto (Bld) [#/Vo l]Ordered By: Camacho Ladd on 08-05-2022 Neutrophils (Bld) [#/Vol] 9.6 10*3/uL 1.8-7.7 [facility] Neutrophils/100 WBC Auto (Bl d)Ordered By: Camacho Ladd on 08-05-2022 Neutrophils/100 WBC (Bld) 67.5 % . [facility] Nitrite Test strip Ql (U)Ord ered By: Camacho Ladd on 08-05-2022 Nitrite Ql (U) Negative Negative [facility] No Panel InformationOrdered By: Camacho Ladd on 08-05-2022 Estimated GFR (CKD-EPI) 53.284 mL/Min [facility] Creatinine Clearance (Chem 35.13 [facility] Nucleated erythrocytes [Pres ence] in Blood by Automated countOrdered By: Camacho Ladd on 08-05-2022 Nucleated RBC Auto Ql (Bld) 0.1 /100{WBC} 0-0.5 [facility] Platelet mean volume Auto (B ld) [Entitic vol]Ordered By: Camacho Ladd on 08-05-2022 Platelet mean volume (Bld) [Entitic vol] 7.2 fL 6.3-10.7 [facility] Platelets Auto (Bld) [#/Vol] Ordered By: Camacho Ladd on 08-05-2022 Platelets (Bld) [#/Vol] 500 10*3/uL 150-450 [facility] Potassium [Moles/volume] in Serum or PlasmaOrdered By: Camacho Ladd on 08-05-2022 Potassium [Moles/Vol] 3.0 mmol/L 3.5-5.1 [facility] Protein Auto test strip (U) [Mass/Vol]Ordered By: Camacho Ladd on 08-05-2022 Protein (U) [Mass/Vol] Negative Negative Fi [facility] Protein [Mass/volume] in Ser um or PlasmaOrdered By: Camacho Ladd on 08-05-2022 Protein [Mass/Vol] 7.3 g/dL 6.4-8.9 [facility] RBC Auto (Bld) [#/Vol]Ordere d By: Camacho Ladd on 08-05-2022 RBC (Bld) [#/Vol] 4.13 10*6/uL 3.60-5.00 [facility] Serum or plasma albumin/glob ulin mass ratioOrdered By: Camacho Ladd on 08-05-2022 Albumin/Globulin [Mass ratio] 1.5 {ratio} [facility] Serum or plasma anion gap de terminationOrdered By: Camacho Ladd on 08-05-2022 Anion gap [Moles/Vol] 17.8 mmol/L 6.0-15.0 Fi [facility] Serum or plasma non-glucuron idated bilirubin measurement (mass/volume)Ordered By: Camacho Ladd on 08-05-2022 Bilirubin.indirect [Mass/Vol] 0.6 mg/dL [facility] Sodium [Moles/volume] in Ser um or PlasmaOrdered By: Camacho Ladd on 08-05-2022 Sodium [Moles/Vol] 125 mmol/L 136-145 [facility] Specific gravity Auto test s trip (U) [Rel density]Ordered By: Camacho Ladd on 08-05-2022 Specific gravity (U) [Rel density] 1.009 1.001-1.030 [facility] Squamous epithelial cells de tection in urine sediment by light microscopyOrdered By: Camacho Ladd on 08-05-2022 Epithelial cells.squamous LM Ql (Urine sed) 0-1 [HPF] 0-2 [facility] Troponin I High Sensitivityo n 08-05-2022 Troponin I High Sensitivity 7.7 pg/mL Normal 0.0-15.0 [facility] Comment on above: Result Comment: PERF ORMED BY: [place] [address] PATHOLOGIST [employer] GOSIA MCADAMS M.D. Performed By: #### B MP #### [address] Troponin I.cardiac [Mass/vol ume] in Serum or Plasma by Detection limit <= 0.01 ng/Ordered By: Camacho Ladd on 08-05-2022 Troponin I.cardiac DL <= 0.01 ng/mL [Mass/Vol] 7.7 pg/mL 0.0-15.0 [facility] Urea nitrogen [Mass/volume] in Serum or PlasmaOrdered By: Camacho Ladd on 08-05-2022 Urea nitrogen [Mass/Vol] 12 mg/dL 7-25 [facility] Urine bacteria detection by automated methodOrdered By: Camacho Ladd on 08-05-2022 Bacteria Auto Ql (U) None seen None Seen [facility] Urine clarity by refractomet ry automatedOrdered By: Camacho Ladd on 08-05-2022 Clarity Refractometry automated (U) Cloudy Clear [facility] Urine glucose measurement by automated test strip (mass/volume)Ordered By: Camacho Ladd on 08-05-2022 Glucose Auto test strip (U) [Mass/Vol] Normal mg/dL Normal [facility] Urine hemoglobin detection b y automated test stripOrdered By: Camacho Ladd on 08-05-2022 Hemoglobin Auto test strip Ql (U) Negative Negative [facility] Urine leukocyte esterase det ection by automated test stripOrdered By: Camacho Allison on 08-05-2022 Leukocyte esterase Auto test strip Ql (U) 1+ Negative [facility] Urobilinogen Auto test strip (U) [Mass/Vol]Ordered By: Camacho Ladd on 08-05-2022 Urobilinogen (U) [Mass/Vol] Normal mg/dL Normal [facility] WBC Auto (Bld) [#/Vol]Ordere d By: Camacho Allison on 08-05-2022 WBC (Bld) [#/Vol] 14.2 10*3/uL 3.8-11.6 [facility] pH Auto test strip (U)Ordere d By: Camacho Ladd on 08-05-2022 pH (U) 7.0 [pH] 5.0-9.0 [facility] BNPon 06-13-2022 Natriuretic peptide B (Bld) [Mass/Vol] 142.0 pg/mL Normal <=1,800.0 [facility] Comment on above: Performed By: #### T SH, BMP #### [facility] [address] [place] [address] Dr. Tasha Dodson CBC AUTO DIFFon 06-13-2022 BASO # 0.1 103/ul Normal 0.0-0.1 [facility] Comment on above: Performed By: #### T SH, BMP #### [facility] [address] [place] [address] Dr. Tasha Dodson Basophils/100 WBC (Bld) 1.0 % Normal 0.2-2.0 [facility] Comment on above: Performed By: #### T SH, BMP #### [facility] [address] [place] [address] Dr. Tasha Dodson EO # 0.3 103/ul Normal 0.0-0.7 [facility] Comment on above: Performed By: #### T SH, BMP #### [facility] [address] [place] [address] Dr. Tasha Dodson Eosinophils/100 WBC (Bld) 2.6 % Normal 0.9-7.0 [facility] Comment on above: Performed By: #### T SH, BMP #### [facility] [address] [place] [address] Dr. Tasha Dodson Erythrocyte distribution width (RBC) [Ratio] 13.4 % Normal 11.0-15.0 [facility] Comment on above: Performed By: #### T SH, BMP #### [facility] [address] [place] [address] Dr. Tasha Dodson Hematocrit (Bld) [Volume fraction] 39.5 % Normal 36.0-48.0 [facility] Comment on above: Performed By: #### T SH, BMP #### [facility] [address] [place] [address] Dr. Tasha Dodson Hemoglobin (Bld) [Mass/Vol] 13.1 g/dL Normal 12.0-16.0 [facility] Comment on above: Performed By: #### T SH, BMP #### [facility] [address] [place] [address] Dr. Tasha Dodson IG # 0.07 10e3/ul Critically high 0.00-0.03 [facility] Comment on above: Performed By: #### T SH, BMP #### [facility] [address] [place] [address] Dr. Tasha Dodson IG % 0.6 % Critically high 0.0-0.5 [facility] Comment on above: Performed By: #### T SH, BMP #### [facility] [address] [place] [address] Dr. Tasha Dodson LYMPH # 2.5 103/ul Normal 1.2-3.8 [facility] Comment on above: Performed By: #### T SH, BMP #### [facility] [address] [place] [address] Dr. Tasha Dodson Lymphocytes/100 WBC (Bld) 22.9 % Normal 20.5-60.0 [facility] Comment on above: Performed By: #### T SH, BMP #### [facility] [address] [place] [address] Dr. Tasha Dodson MANUAL DIFF REQ NO Normal [facility] Comment on above: Performed By: #### T SH, BMP #### [facility] [address] [place] [address] Dr. Tasha Dodson MCH (RBC) [Entitic mass] 30.7 pg Normal 26.7-34.0 [facility] Comment on above: Performed By: #### T SH, BMP #### [facility] [address] [place] [address] Dr. Tasha Dodson MCHC (RBC) [Mass/Vol] 33.2 g/dL Normal 29.9-35.2 [facility] Comment on above: Performed By: #### T SH, BMP #### [facility] [address] [place] [address] Dr. Tasha Dodson MCV (RBC) [Entitic vol] 92.5 fL Normal 81.0-99.0 [facility] Comment on above: Performed By: #### T JESI, BMP #### [facility] [address] [place] [address] Dr. Tasha Dodson MONO # 0.8 103/ul Normal 0.3-0.8 [facility] Comment on above: Performed By: #### T JESI, BMP #### [facility] [address] [place] [address] Dr. Tasha Dodson Monocytes/100 WBC (Bld) 7.0 % Normal 1.7-12.0 [facility] Comment on above: Performed By: #### T JESI, BMP #### [facility] [address] [place] [address] Dr. Tasha Dodson NEUT # 7.2 103/ul Critically high 1.4-6.5 [facility] Comment on above: Performed By: #### T SH, BMP #### [facility] [address] [place] [address] Dr. Tasha Dodson Neutrophils/100 WBC (Bld) 65.9 % Normal 43.0-75.0 [facility] Comment on above: Performed By: #### T SH, BMP #### [facility] [address] [place] [address] Dr. Tasha Dodson Platelet mean volume (Bld) [Entitic vol] 8.0 fL Critically low 9.5-13.5 [facility] Comment on above: Performed By: #### T JESI, BMP #### [facility] [address] [place] [address] Dr. Tasha Dodson PLT 449 103/ul Normal 150-450 [facility] Comment on above: Performed By: #### T SH, BMP #### [facility] [address] [place] [address] Dr. Tasha Dodson RBC 4.27 106/ul Normal 4.20-5.40 [facility] Comment on above: Performed By: #### T JESI, BMP #### [facility] [address] [place] [address] Dr. Tasha Dodson WBC 10.9 103/ul Normal 4.0-11.0 [facility] Comment on above: Performed By: #### T JESI, BMP #### [facility] [address] [place] [address] Dr. Tasha Dodson FREE THYROXINE INDEX T7on FTI 3.67 Normal 1.30-4.50 [facility] Comment on above: Performed By: #### T JESI, BMP #### [facility] [address] [place] [address] Dr. Tasha Dodson T3U 36.0 % Normal 30.0-39.0 [facility] Comment on above: Performed By: #### T JESI, BMP #### [facility] [address] [place] [address] Dr. Tasha Dodson T4 [Mass/Vol] 10.20 ug/dL Normal 4.80-13.90 [facility] Comment on above: Performed By: #### T JESI, BMP #### [facility] [address] [place] [address] Dr. Tasha Dodson PROF CHEM 8 (BAS METB)on Anion gap [Moles/Vol] 13.8 mmol/L Normal Th [facility] Comment on above: Performed By: #### T SH, BMP #### [facility] [address] [address] [address] Tasha Dodson Calcium [Mass/Vol] 9.8 mg/dL Normal 8.5-10.1 [facility] Comment on above: Performed By: #### T SH, BMP #### [facility] [address] [place] [address] Dr. Tasha Dodson Chloride [Moles/Vol] 95 mmol/L Critically low 98-107 [facility] Comment on above: Performed By: #### T SH, BMP #### [facility] [address] [place] [address] Dr. Tasha Dodson CO2 [Moles/Vol] 30.5 mmol/L Normal 21.0-32.0 [facility] Comment on above: Performed By: #### T SH, BMP #### [facility] [address] [place] [address] Dr. Tasha Dodson Creatinine [Mass/Vol] 0.78 mg/dL Normal 0.55-1.02 [facility] Comment on above: Performed By: #### T SH, BMP #### [facility] [address] [place] [address] Dr. Tasha Dodson EGFR-AF TRISTANIAN >60 Normal >=60 [facility] Comment on above: Performed By: #### T SH, BMP #### [facility] [address] [place] [address] Dr. Tasha Dodson EGFR-NON AF TRISTANIAN >60 Normal >=60 [facility] Comment on above: Performed By: #### T SH, BMP #### [facility] [address] [place] [address] Dr. Tasha Dodson Glucose [Mass/Vol] 108 mg/dL Critically high 74-106 [facility] Comment on above: Performed By: #### T SH, BMP #### [facility] [address] [place] [address] Dr. Tasha Dodson Potassium [Moles/Vol] 3.3 mmol/L Critically low 3.5-5.1 [facility] Comment on above: Performed By: #### T SH, BMP #### [facility] [address] [place] [address] Dr. Tasha Dodson Sodium [Moles/Vol] 136 mmol/L Normal 136-145 [facility] Comment on above: Performed By: #### T SH, BMP #### [facility] [address] [place] [address] Dr. Tasha Dodson Urea nitrogen [Mass/Vol] 11.0 mg/dL Normal 7.0-18.0 [facility] Comment on above: Performed By: #### T SH, BMP #### [facility] [address] [place] [address] Dr. Tasha Dodson Urea nitrogen/Creatinine [Mass ratio] 14.1 mg/mg Normal [facility] Comment on above: Performed By: #### T SH, BMP #### [facility] [address] [place] [address] Dr. Tasha Dodson TSHon 06-13-2022 TSH 2.583 uIU/mL Normal 0.358-3.740 [facility] Comment on above: Performed By: #### T SH, BMP #### [facility] [address] [place] [address] Dr. Tasha Dodson UA (CLEAN/CATCH) JOB PLACEMENT OFFICER/MICRO I F IND.on 06-13-2022 Bilirubin Ql (U) Negative Normal NEGATIVE [facility] Comment on above: Performed By: #### T SH, BMP #### [facility] [address] [place] [address] Dr. Tasha Dodson Clarity (U) CLEAR Normal CLEAR [facility] Comment on above: Performed By: #### T SH, BMP #### [facility] [address] [place] [address] Dr. Tasha Dodson Color (U) LT. YELLOW Normal YELLOW [facility] Comment on above: Performed By: #### T SH, BMP #### [facility] [address] [place] [address] Dr. Tasha Dodson Glucose Ql (U) Negative Normal NEGATIVE [facility] Comment on above: Performed By: #### T SH, BMP #### [facility] [address] [place] [address] Dr. Tasha Dodson Hemoglobin Ql (U) Negative Normal NEGATIVE [facility] Comment on above: Performed By: #### T SH, BMP #### [facility] [address] [place] [address] Dr. Tasha Dodson Ketones Ql (U) Negative Normal NEGATIVE [facility] Comment on above: Performed By: #### T SH, BMP #### [facility] [address] [place] [address] Dr. Tasha Dodson LEUKOCYTES Negative Normal NEGATIVE [facility] Comment on above: Performed By: #### T SH, BMP #### [facility] [address] [place] [address] Dr. Tasha Dodson Nitrite Ql (U) Negative Normal NEGATIVE [facility] Comment on above: Performed By: #### T SH, BMP #### [facility] [address] [place] [address] Dr. Tasha Dodson pH (U) 7.0 [pH] Normal 5-9 [facility] Comment on above: Performed By: #### T SH, BMP #### [facility] [address] [place] [address] Dr. Tasha Dodson SPEC GRAVITY 1.010 Normal 1.005-<=1.0 25 [facility] Comment on above: Performed By: #### T SH, BMP #### [facility] [address] [place] [address] Dr. Tasha Dodson UA PROTEIN Negative Normal NEGATIVE/ TRACE [facility] Comment on above: Performed By: #### T SH, BMP #### [facility] [address] [place] [address] Dr. Tasha Dodson UR MICRO IND NOT INDICATED Normal [facility] Comment on above: Performed By: #### T SH, BMP #### [facility] [address] [place] [address] Dr. Tasha Dodson Urobilinogen Qn (U) 0.2 {Juan'U}/dL Normal 0.2 - 1. 0 [facility] Comment on above: Performed By: #### T SH, BMP #### [facility] [address] [address] [address] Tasha Dodson ECHOCARDIO M/2D COMPLETEon 0 04-18-2022 ECHOCARDIO M/2D COMPLETE Patient: HIRAM MADRID Exam Date: 04/18/2022 : 1935 Gender:F Ordering : DR VALERIE DARDEN M.D. Admission #: [id number] Family : ADDY DANIELS . Order #: [id number] CLICK HERE TO VIEW EXAM ECHOCARDIOGRAM REPORT [...] Barragan M.D. on 04/19/2022 at 18:55 Normal [facility] Office Visiton 04-04-2022 Follow-up visit [id number] Hiram Madrid 1935 F Date Provider Department Center 04/04/2022 271-ADELSO, EHAB CARD [facility] Family History Problem Relation Age of Onset Hypertension Mother Lupus Mother Coronary artery disease Mother Heart attack Mother Hypertension Father Aneurysm Father Coronary artery disease Father Hypertension Sister Lupus Sister Family Status - Relation Status Age at Mother Father Sister Level of Service:23932 SC OFFICE/OUTPATIENT ESTABLISHED MOD MDM 30-39 MIN Reason for Visit and Comments: Hyperlipidemia [182] Hypertension [973639] carotid artery stenosis [Other] 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 CBC AUTO DIFFon 01-04-2022 BASO # 0.1 103/ul Normal 0.0-0.1 [facility] Comment on above: Performed By: #### C BC #### [facility] [address] [place] [address] Dr. Tasha Dodson Basophils/100 WBC (Bld) 0.6 % Normal 0.2-2.0 [facility] Comment on above: Performed By: #### C BC #### [facility] [address] [place] [address] Dr. Tasha Dodson EO # 0.1 103/ul Normal 0.0-0.7 [facility] Comment on above: Performed By: #### C BC #### [facility] [address] [place] [address] Dr. Tasha Dodson Eosinophils/100 WBC (Bld) 0.9 % Normal 0.9-7.0 [facility] Comment on above: Performed By: #### C BC #### [facility] [address] [place] [address] Dr. Tasha Dodson Erythrocyte distribution width (RBC) [Ratio] 13.0 % Normal 11.0-15.0 [facility] Comment on above: Performed By: #### C BC #### [facility] [address] [place] [address] Dr. Tasha Dodson Hematocrit (Bld) [Volume fraction] 38.5 % Normal 36.0-48.0 [facility] Comment on above: Performed By: #### C BC #### [facility] [address] [place] [address] Dr. Tasha Dodson Hemoglobin (Bld) [Mass/Vol] 13.4 g/dL Normal 12.0-16.0 [facility] Comment on above: Performed By: #### C BC #### [facility] [address] [place] [address] Dr. Tasha Dodson IG # 0.07 10e3/ul Critically high 0.00-0.03 [facility] Comment on above: Performed By: #### C BC #### [facility] [address] [place] [address] Dr. Tasha Dodson IG % 0.5 % Normal 0.0-0.5 [facility] Comment on above: Performed By: #### C BC #### [facility] [address] [place] [address] Dr. Tasha Dodson LYMPH # 2.8 103/ul Normal 1.2-3.8 [facility] Comment on above: Performed By: #### C BC #### [facility] [address] [place] [address] Dr. Tasha Dodson Lymphocytes/100 WBC (Bld) 20.5 % Normal 20.5-60.0 [facility] Comment on above: Performed By: #### C BC #### [facility] [address] [place] [address] Dr. Tasha Dodson MANUAL DIFF REQ NO Normal [facility] Comment on above: Performed By: #### C BC #### [facility] [address] [place] [address] Dr. Tasha Dodson MCH (RBC) [Entitic mass] 30.7 pg Normal 26.7-34.0 [facility] Comment on above: Performed By: #### C BC #### [facility] [address] [place] [address] Dr. Tasha Dodson MCHC (RBC) [Mass/Vol] 34.8 g/dL Normal 29.9-35.2 [facility] Comment on above: Performed By: #### C BC #### [facility] [address] [place] [address] Dr. Tasha Dodson MCV (RBC) [Entitic vol] 88.3 fL Normal 81.0-99.0 [facility] Comment on above: Performed By: #### C BC #### [facility] [address] [place] [address] Dr. Tasha Dodson MONO # 1.0 103/ul Critically high 0.3-0.8 [facility] Comment on above: Performed By: #### C BC #### [facility] [address] [place] [address] Dr. Tasha Dodson Monocytes/100 WBC (Bld) 7.4 % Normal 1.7-12.0 [facility] Comment on above: Performed By: #### C BC #### [facility] [address] [place] [address] Dr. Tasha Dodson NEUT # 9.5 103/ul Critically high 1.4-6.5 [facility] Comment on above: Performed By: #### C BC #### [facility] [address] [place] [address] Dr. Tasha Dodson Neutrophils/100 WBC (Bld) 70.1 % Normal 43.0-75.0 [facility] Comment on above: Performed By: #### C BC #### [facility] [address] [place] [address] Dr. Tasha Dodson Platelet mean volume (Bld) [Entitic vol] 8.0 fL Critically low 9.5-13.5 [facility] Comment on above: Performed By: #### C BC #### [facility] [address] [place] [address] Dr. Tasha Dodson PLT 492 103/ul Critically high 150-450 [facility] Comment on above: Performed By: #### C BC #### [facility] [address] [place] [address] Dr. Tasha Dodson RBC 4.36 106/ul Normal 4.20-5.40 [facility] Comment on above: Performed By: #### C BC #### [facility] [address] [place] [address] Dr. Tasha Dodson WBC 13.5 103/ul Critically high 4.0-11.0 [facility] Comment on above: Performed By: #### C BC #### [facility] [address] [address] [address] Tasha Dodson PROF 14(COMP METB)on 01-04- 022 Albumin [Mass/Vol] 3.8 g/dL Normal 3.4-5.0 [facility] Comment on above: Performed By: #### T SH, BMP #### [facility] [address] [place] [address] Dr. Tasha Dodson Albumin/Globulin [Mass ratio] 0.9 {ratio} Normal [facility] Comment on above: Performed By: #### T SH, BMP #### [facility] [address] [place] [address] Dr. Tasha Dodson ALP [Catalytic activity/Vol] 60 U/L Normal 46-116 [facility] Comment on above: Performed By: #### T SH, BMP #### [facility] [address] [place] [address] Dr. Tasha Dodson ALT [Catalytic activity/Vol] 26 U/L Normal 14-59 [facility] Comment on above: Performed By: #### T SH, BMP #### [facility] [address] [place] [address] Dr. Tasha Dodson Anion gap [Moles/Vol] 8.4 mmol/L Normal [facility] Comment on above: Performed By: #### T SH, BMP #### [facility] [address] [place] [address] Dr. Tasha Dodson AST [Catalytic activity/Vol] 19 U/L Normal 15-37 [facility] Comment on above: Performed By: #### T SH, BMP #### [facility] [address] [place] [address] Dr. Tasha Dodson Bilirubin [Mass/Vol] 0.4 mg/dL Normal 0.2-1.0 [facility] Comment on above: Performed By: #### T SH, BMP #### [facility] [address] [place] [address] Dr. Tasha Dodson Calcium [Mass/Vol] 10.1 mg/dL Normal 8.5-10.1 [facility] Comment on above: Performed By: #### T SH, BMP #### [facility] [address] [place] [address] Dr. Tasha Dodson Chloride [Moles/Vol] 92 mmol/L Critically low 98-107 [facility] Comment on above: Performed By: #### T SH, BMP #### [facility] [address] [place] [address] Dr. Tasha Dodson CO2 [Moles/Vol] 33.8 mmol/L Critically high 21.0-32.0 [facility] Comment on above: Performed By: #### T SH, BMP #### [facility] [address] [place] [address] Dr. Tasha Dodson Creatinine [Mass/Vol] 0.67 mg/dL Normal 0.55-1.02 [facility] Comment on above: Performed By: #### T SH, BMP #### [facility] [address] [place] [address] Dr. Tasha Dodson EGFR-AF TRISTANIAN >60 Normal >=60 [facility] Comment on above: Performed By: #### T SH, BMP #### [facility] [address] [place] [address] Dr. Tasha Dodson EGFR-NON AF TRISTANIAN >60 Normal >=60 [facility] Comment on above: Performed By: #### T SH, BMP #### [facility] [address] [place] [address] Dr. Tasha Dodson Globulin (S) [Mass/Vol] 4.1 g/dL Normal [facility] Comment on above: Performed By: #### T SH, BMP #### [facility] [address] [place] [address] Dr. Tasha Dodson Glucose [Mass/Vol] 106 mg/dL Normal 74-106 [facility] Comment on above: Performed By: #### T SH, BMP #### [facility] [address] [place] [address] Dr. Tasha Dodson Potassium [Moles/Vol] 3.2 mmol/L Critically low 3.5-5.1 [facility] Comment on above: Performed By: #### T SH, BMP #### [facility] [address] [place] [address] Dr. Tasha Dodson Protein [Mass/Vol] 7.9 g/dL Normal 6.4-8.2 [facility] Comment on above: Performed By: #### T SH, BMP #### [facility] [address] [place] [address] Dr. Tasha Dodson Sodium [Moles/Vol] 131 mmol/L Critically low 136-[address] [facility] Comment on above: Performed By: #### T SH, BMP #### [facility] [address] [place] [address] Dr. Tasha Dodson Urea nitrogen [Mass/Vol] 10.0 mg/dL Normal 7.0-18.0 [facility] Comment on above: Performed By: #### T JESI, BMP #### [facility] [address] [place] [address] Dr. Tasha Dodson Urea nitrogen/Creatinine [Mass ratio] 14.9 mg/mg Normal [facility] Comment on above: Performed By: #### T SH, BMP #### [facility] [address] [place] [address] Dr. Tasha Dodson CBC AUTO DIFFon 12-29-2021 BASO # 0.1 103/ul Normal 0.0-0.1 [facility] Comment on above: Performed By: #### C BC #### [facility] [address] [place] [address] Dr. Tasha Dodson Basophils/100 WBC (Bld) 0.5 % Normal 0.2-2.0 [facility] Comment on above: Performed By: #### C BC #### [facility] [address] [place] [address] Dr. Tasha Dodson EO # 0.1 103/ul Normal 0.0-0.7 [facility] Comment on above: Performed By: #### C BC #### [facility] [address] [place] [address] Dr. Tasha Dodson Eosinophils/100 WBC (Bld) 0.4 % Critically low 0.9-7.0 [facility] Comment on above: Performed By: #### C BC #### [facility] [address] [place] [address] Dr. Tasha Dodson Erythrocyte distribution width (RBC) [Ratio] 13.0 % Normal 11.0-15.0 [facility] Comment on above: Performed By: #### C BC #### [facility] [address] [place] [address] Dr. Tasha Dodson Hematocrit (Bld) [Volume fraction] 34.0 % Critically low 36.0-48.0 [facility] Comment on above: Performed By: #### C BC #### [facility] [address] [place] [address] Dr. Tasha Dodson Hemoglobin (Bld) [Mass/Vol] 12.0 g/dL Normal 12.0-16.0 [facility] Comment on above: Performed By: #### C BC #### [facility] [address] [place] [address] Dr. Tasha Dodson IG # 0.06 10e3/ul Critically high 0.00-0.03 [facility] Comment on above: Performed By: #### C BC #### [facility] [address] [place] [address] Dr. Tasha Dodson IG % 0.4 % Normal 0.0-0.5 [facility] Comment on above: Performed By: #### C BC #### [facility] [address] [place] [address] Dr. Tasha Dodson LYMPH # 2.5 103/ul Normal 1.2-3.8 [facility] Comment on above: Performed By: #### C BC #### [facility] [address] [place] [address] Dr. Tasha Dodson Lymphocytes/100 WBC (Bld) 17.4 % Critically low 20.5-60.0 [facility] Comment on above: Performed By: #### C BC #### [facility] [address] [place] [address] Dr. Tasha Dodson MANUAL DIFF REQ NO Normal [facility] Comment on above: Performed By: #### C BC #### [facility] [address] [place] [address] Dr. Tasha Dodson MCH (RBC) [Entitic mass] 31.0 pg Normal 26.7-34.0 [facility] Comment on above: Performed By: #### C BC #### [facility] [address] [place] [address] Dr. Tasha Dodson MCHC (RBC) [Mass/Vol] 35.3 g/dL Critically high 29.9-35.2 [facility] Comment on above: Performed By: #### C BC #### [facility] [address] [place] [address] Dr. Tasha Dodson MCV (RBC) [Entitic vol] 87.9 fL Normal 81.0-99.0 [facility] Comment on above: Performed By: #### C BC #### [facility] [address] [place] [address] Dr. Tasha Dodson MONO # 1.0 103/ul Critically high 0.3-0.8 [facility] Comment on above: Performed By: #### C BC #### [facility] [address] [place] [address] Dr. Tasha Dodson Monocytes/100 WBC (Bld) 6.9 % Normal 1.7-12.0 [facility] Comment on above: Performed By: #### C BC #### [facility] [address] [place] [address] Dr. Tasha Dodson NEUT # 10.8 103/ul Critically high 1.4-6.5 [facility] Comment on above: Performed By: #### C BC #### [facility] [address] [place] [address] Dr. Tasha Dodson Neutrophils/100 WBC (Bld) 74.4 % Normal 43.0-75.0 [facility] Comment on above: Performed By: #### C BC #### [facility] [address] [place] [address] Dr. Tasha Dodson Platelet mean volume (Bld) [Entitic vol] 8.4 fL Critically low 9.5-13.5 [facility] Comment on above: Performed By: #### C BC #### [facility] [address] [place] [address] Dr. Tasha Dodson PLT 370 103/ul Normal 150-450 [facility] Comment on above: Performed By: #### C BC #### [facility] [address] [place] [address] Dr. Tasha Dodson RBC 3.87 106/ul Critically low 4.20-5.40 [facility] Comment on above: Performed By: #### C BC #### [facility] [address] [place] [address] Dr. Tasha Dodson WBC 14.5 103/ul Critically high 4.0-11.0 [facility] Comment on above: Performed By: #### C BC #### [facility] [address] [place] [address] Dr. Tasha Dodson PROF 14(COMP METB)on 022 Albumin [Mass/Vol] 2.8 g/dL Critically low 3.4-5.0 [facility] Comment on above: Performed By: #### T JESI, BMP #### [facility] [address] [place] [address] Dr. Tasha Dodson Albumin/Globulin [Mass ratio] 0.9 {ratio} Normal [facility] Comment on above: Performed By: #### T SH, BMP #### [facility] [address] [place] [address] Dr. Tasha Dodson ALP [Catalytic activity/Vol] 51 U/L Normal 46-116 [facility] Comment on above: Performed By: #### T SH, BMP #### [facility] [address] [place] [address] Dr. Tasha Dodson ALT [Catalytic activity/Vol] 15 U/L Normal 14-59 [facility] Comment on above: Performed By: #### T SH, BMP #### [facility] [address] [place] [address] Dr. Tasha Dodson Anion gap [Moles/Vol] 9.7 mmol/L Normal [facility] Comment on above: Performed By: #### T SH, BMP #### [facility] [address] [place] [address] Dr. Tasha Dodson AST [Catalytic activity/Vol] 15 U/L Normal 15-37 [facility] Comment on above: Performed By: #### T SH, BMP #### [facility] [address] [place] [address] Dr. Tasha Dodson Bilirubin [Mass/Vol] 0.4 mg/dL Normal 0.2-1.0 [facility] Comment on above: Performed By: #### T SH, BMP #### [facility] [address] [place] [address] Dr. Tasha Dodson Calcium [Mass/Vol] 8.6 mg/dL Normal 8.5-10.1 [facility] Comment on above: Performed By: #### T SH, BMP #### [facility] [address] [place] [address] Dr. Tasha Dodson Chloride [Moles/Vol] 97 mmol/L Critically low 98-107 [facility] Comment on above: Performed By: #### T SH, BMP #### [facility] [address] [place] [address] Dr. Tasha Dodson CO2 [Moles/Vol] 25.8 mmol/L Normal 21.0-32.0 [facility] Comment on above: Performed By: #### T SH, BMP #### [facility] [address] [place] [address] Dr. Tasha Dodson Creatinine [Mass/Vol] 0.52 mg/dL Critically low 0.55-1.02 [facility] Comment on above: Performed By: #### T SH, BMP #### [facility] [address] [place] [address] Dr. Tasha Dodson EGFR-AF TRISTANIAN >60 Normal >=60 [facility] Comment on above: Performed By: #### T SH, BMP #### [facility] [address] [place] [address] Dr. Tasha Dodson EGFR-NON AF TRISTANIAN >60 Normal >=60 [facility] Comment on above: Performed By: #### T SH, BMP #### [facility] [address] [place] [address] Dr. Tasha Dodson Globulin (S) [Mass/Vol] 3.2 g/dL Normal [facility] Comment on above: Performed By: #### T SH, BMP #### [facility] [address] [place] [address] Dr. Tasha Dodson Glucose [Mass/Vol] 117 mg/dL Critically high 74-106 [facility] Comment on above: Performed By: #### T SH, BMP #### [facility] [address] [place] [address] Dr. Tasha Dodson Potassium [Moles/Vol] 3.5 mmol/L Normal 3.5-5.1 [facility] Comment on above: Performed By: #### T SH, BMP #### [facility] [address] [place] [address] Dr. Tasha Dodson Protein [Mass/Vol] 6.0 g/dL Critically low 6.4-8.2 [facility] Comment on above: Performed By: #### T SH, BMP #### [facility] [address] [place] [address] Dr. Tasha Dodson Sodium [Moles/Vol] 129 mmol/L Critically low 136-[address] [facility] Comment on above: Performed By: #### T SH, BMP #### [facility] [address] [place] [address] Dr. Tasha Dodson Urea nitrogen [Mass/Vol] 4.0 mg/dL Critically low 7.0-18.0 [facility] Comment on above: Performed By: #### T SH, BMP #### [facility] [address] [place] [address] Dr. Tasha Dodson Urea nitrogen/Creatinine [Mass ratio] 7.7 mg/mg Normal [facility] Comment on above: Performed By: #### T SH, BMP #### [facility] [address] [place] [address] Dr. Tasha Dodson CBC AUTO DIFFon 12-28-2021 BASO # 0.1 103/ul Normal 0.0-0.1 [facility] Comment on above: Performed By: #### C BC #### [facility] [address] [place] [address] Dr. Tasha Dodson Basophils/100 WBC (Bld) 0.4 % Normal 0.2-2.0 [facility] Comment on above: Performed By: #### C BC #### [facility] [address] [place] [address] Dr. Tasha Dodson EO # 0.1 103/ul Normal 0.0-0.7 [facility] Comment on above: Performed By: #### C BC #### [facility] [address] [place] [address] Dr. Tasha Dodson Eosinophils/100 WBC (Bld) 0.4 % Critically low 0.9-7.0 [facility] Comment on above: Performed By: #### C BC #### [facility] [address] [place] [address] Dr. Tasha Dodson Erythrocyte distribution width (RBC) [Ratio] 12.9 % Normal 11.0-15.0 [facility] Comment on above: Performed By: #### C BC #### [facility] [address] [place] [address] Dr. Tasha Dodson Hematocrit (Bld) [Volume fraction] 34.2 % Critically low 36.0-48.0 [facility] Comment on above: Performed By: #### C BC #### [facility] [address] [place] [address] Dr. Tasha Dodson Hemoglobin (Bld) [Mass/Vol] 12.4 g/dL Normal 12.0-16.0 [facility] Comment on above: Performed By: #### C BC #### [facility] [address] [place] [address] Dr. Tasha Dodson IG # 0.09 10e3/ul Critically high 0.00-0.03 [facility] Comment on above: Performed By: #### C BC #### [facility] [address] [place] [address] Dr. Tasha Dodson IG % 0.6 % Critically high 0.0-0.5 [facility] Comment on above: Performed By: #### C BC #### [facility] [address] [place] [address] Dr. Tasha Dodson LYMPH # 2.2 103/ul Normal 1.2-3.8 [facility] Comment on above: Performed By: #### C BC #### [facility] [address] [place] [address] Dr. Tasha Dodson Lymphocytes/100 WBC (Bld) 13.6 % Critically low 20.5-60.0 [facility] Comment on above: Performed By: #### C BC #### [facility] [address] [place] [address] Dr. Tasha Dodson MANUAL DIFF REQ NO Normal [facility] Comment on above: Performed By: #### C BC #### [facility] [address] [place] [address] Dr. Tasha Dodson MCH (RBC) [Entitic mass] 31.2 pg Normal 26.7-34.0 [facility] Comment on above: Performed By: #### C BC #### [facility] [address] [place] [address] Dr. Tasha Dodson MCHC (RBC) [Mass/Vol] 36.3 g/dL Critically high 29.9-35.2 [facility] Comment on above: Performed By: #### C BC #### [facility] [address] [place] [address] Dr. Tasha Dodson MCV (RBC) [Entitic vol] 85.9 fL Normal 81.0-99.0 [facility] Comment on above: Performed By: #### C BC #### [facility] [address] [place] [address] Dr. Tasha Dodson MONO # 1.3 103/ul Critically high 0.3-0.8 [facility] Comment on above: Performed By: #### C BC #### [facility] [address] [place] [address] Dr. Tasha Dodson Monocytes/100 WBC (Bld) 7.8 % Normal 1.7-12.0 [facility] Comment on above: Performed By: #### C BC #### [facility] [address] [place] [address] Dr. Tasha Dodson NEUT # 12.4 103/ul Critically high 1.4-6.5 [facility] Comment on above: Performed By: #### C BC #### [facility] [address] [place] [address] Dr. Tasha Dodson Neutrophils/100 WBC (Bld) 77.2 % Critically high 43.0-75.0 [facility] Comment on above: Performed By: #### C BC #### [facility] [address] [place] [address] Dr. Tasha Dodson Platelet mean volume (Bld) [Entitic vol] 8.6 fL Critically low 9.5-13.5 [facility] Comment on above: Performed By: #### C BC #### [facility] [address] [place] [address] Dr. Tasha Dodson PLT 385 103/ul Normal 150-450 [facility] Comment on above: Performed By: #### C BC #### [facility] [address] [place] [address] Dr. Tasha Dodson RBC 3.98 106/ul Critically low 4.20-5.40 [facility] Comment on above: Performed By: #### C BC #### [facility] [address] [place] [address] Dr. Tasha Dodson WBC 16.1 103/ul Critically high 4.0-11.0 [facility] Comment on above: Performed By: #### C BC #### [facility] [address] [place] [address] Dr. Tasha Dodson PROF 14(COMP METB)on 022 Albumin [Mass/Vol] 3.2 g/dL Critically low 3.4-5.0 [facility] Comment on above: Performed By: #### T , BMP #### [facility] [address] [place] [address] Dr. Tasha Dodson Albumin/Globulin [Mass ratio] 1.0 {ratio} Normal [facility] Comment on above: Performed By: #### T SH, BMP #### [facility] [address] [place] [address] Dr. Tasha Dodson ALP [Catalytic activity/Vol] 51 U/L Normal 46-116 [facility] Comment on above: Performed By: #### T SH, BMP #### [facility] [address] [place] [address] Dr. Tasha Dodson ALT [Catalytic activity/Vol] 17 U/L Normal 14-59 [facility] Comment on above: Performed By: #### T JESI, BMP #### [facility] [address] [place] [address] Dr. Tasha Dodson Anion gap [Moles/Vol] 10.5 mmol/L Normal Th [facility] Comment on above: Performed By: #### T JESI, BMP #### [facility] [address] [place] [address] Dr. Tasha Dodson AST [Catalytic activity/Vol] 18 U/L Normal 15-37 [facility] Comment on above: Performed By: #### T JESI, BMP #### [facility] [address] [place] [address] Dr. Tasha Dodson Bilirubin [Mass/Vol] 0.4 mg/dL Normal 0.2-1.0 [facility] Comment on above: Performed By: #### T JESI, BMP #### [facility] [address] [place] [address] Dr. Tasha Dodson Calcium [Mass/Vol] 8.3 mg/dL Critically low 8.5-10.1 [facility] Comment on above: Performed By: #### T JESI, BMP #### [facility] [address] [place] [address] Dr. Tasha Dodson Chloride [Moles/Vol] 96 mmol/L Critically low 98-107 [facility] Comment on above: Performed By: #### T JESI, BMP #### [facility] [address] [place] [address] Dr. Tasha Dodson CO2 [Moles/Vol] 24.5 mmol/L Normal 21.0-32.0 [facility] Comment on above: Performed By: #### T SH, BMP #### [facility] [address] [place] [address] Dr. Tasha Dodson Creatinine [Mass/Vol] 0.54 mg/dL Critically low 0.55-1.02 [facility] Comment on above: Performed By: #### T SH, BMP #### [facility] [address] [place] [address] Dr. Tasha Dodson EGFR-AF TRISTANIAN >60 Normal >=60 [facility] Comment on above: Performed By: #### T SH, BMP #### [facility] [address] [place] [address] Dr. Tasha Dodson EGFR-NON AF TRISTANIAN >60 Normal >=60 [facility] Comment on above: Performed By: #### T SH, BMP #### [facility] [address] [place] [address] Dr. Tasha Dodson Globulin (S) [Mass/Vol] 3.1 g/dL Normal [facility] Comment on above: Performed By: #### T SH, BMP #### [facility] [address] [place] [address] Dr. Tasha Dodson Glucose [Mass/Vol] 123 mg/dL Critically high 74-106 [facility] Comment on above: Performed By: #### T SH, BMP #### [facility] [address] [place] [address] Dr. Tasha Dodson Potassium [Moles/Vol] 3.0 mmol/L Critically low 3.5-5.1 [facility] Comment on above: Performed By: #### T SH, BMP #### [facility] [address] [place] [address] Dr. Tasha Dodson Protein [Mass/Vol] 6.3 g/dL Critically low 6.4-8.2 [facility] Comment on above: Performed By: #### T SH, BMP #### [facility] [address] [place] [address] Dr. Tasha Dodson Sodium [Moles/Vol] 128 mmol/L Critically low 136-[address] [facility] Comment on above: Performed By: #### T JESI, BMP #### [facility] [address] [place] [address] Dr. Tasha Dodson Urea nitrogen [Mass/Vol] 5.0 mg/dL Critically low 7.0-18.0 [facility] Comment on above: Performed By: #### T JESI, BMP #### [facility] [address] [place] [address] Dr. Tasha Dodson Urea nitrogen/Creatinine [Mass ratio] 9.3 mg/mg Normal [facility] Comment on above: Performed By: #### T JESI, BMP #### [facility] [address] [place] [address] Dr. Tasha Dodson SODIUM RANDOM URINEon 2021 Sodium (U) [Moles/Vol] 135 mmol/L Critically high 30-90 [facility] Comment on above: Performed By: #### C BC #### [facility] [address] [place] [address] Dr. Tasha Dodson CBC AUTO DIFFon 12-27-2021 BASO # 0.0 103/ul Normal 0.0-0.1 [facility] Comment on above: Performed By: #### C BC #### [facility] [address] [place] [address] Dr. Tasha Dodson Basophils/100 WBC (Bld) 0.2 % Normal 0.2-2.0 [facility] Comment on above: Performed By: #### C BC #### [facility] [address] [place] [address] Dr. Tasha Dodson EO # 0.3 103/ul Normal 0.0-0.7 [facility] Comment on above: Performed By: #### C BC #### [facility] [address] [place] [address] Dr. Tasha Dodson Eosinophils/100 WBC (Bld) 2.3 % Normal 0.9-7.0 [facility] Comment on above: Performed By: #### C BC #### [facility] [address] [place] [address] Dr. Tasha Dodson Erythrocyte distribution width (RBC) [Ratio] 12.4 % Normal 11.0-15.0 [facility] Comment on above: Performed By: #### C BC #### [facility] [address] [place] [address] Dr. Tasha Dodson Hematocrit (Bld) [Volume fraction] 35.4 % Critically low 36.0-48.0 [facility] Comment on above: Performed By: #### C BC #### [facility] [address] [place] [address] Dr. Tasha Dodson Hemoglobin (Bld) [Mass/Vol] 12.9 g/dL Normal 12.0-16.0 [facility] Comment on above: Performed By: #### C BC #### [facility] [address] [place] [address] Dr. Tasha Dodson IG # 0.06 10e3/ul Critically high 0.00-0.03 [facility] Comment on above: Performed By: #### C BC #### [facility] [address] [place] [address] Dr. Tasha Dodson IG % 0.5 % Normal 0.0-0.5 [facility] Comment on above: Performed By: #### C BC #### [facility] [address] [place] [address] Dr. Tasha Dodson LYMPH # 2.0 103/ul Normal 1.2-3.8 [facility] Comment on above: Performed By: #### C BC #### [facility] [address] [place] [address] Dr. Tasha Dodson Lymphocytes/100 WBC (Bld) 15.7 % Critically low 20.5-60.0 [facility] Comment on above: Performed By: #### C BC #### [facility] [address] [place] [address] Dr. Tasha Dodson MANUAL DIFF REQ NO Normal [facility] Comment on above: Performed By: #### C BC #### [facility] [address] [place] [address] Dr. Tasha Dodson MCH (RBC) [Entitic mass] 31.0 pg Normal 26.7-34.0 [facility] Comment on above: Performed By: #### C BC #### [facility] [address] [address] [address] Tasha Dodson MCHC (RBC) [Mass/Vol] 36.4 g/dL Critically high 29.9-35.2 [facility] Comment on above: Performed By: #### C BC #### [facility] [address] [address] [address] Tasha Dodson MCV (RBC) [Entitic vol] 85.1 fL Normal 81.0-99.0 [facility] Comment on above: Performed By: #### C BC #### [facility] [address] [place] [address] Dr. Tasha Dodson MONO # 1.1 103/ul Critically high 0.3-0.8 [facility] Comment on above: Performed By: #### C BC #### [facility] [address] [place] [address] Dr. Tasha Dodson Monocytes/100 WBC (Bld) 8.3 % Normal 1.7-12.0 [facility] Comment on above: Performed By: #### C BC #### [facility] [address] [place] [address] Dr. Tasha Dodson NEUT # 9.5 103/ul Critically high 1.4-6.5 [facility] Comment on above: Performed By: #### C BC #### [facility] [address] [place] [address] Dr. Tasha Dodson Neutrophils/100 WBC (Bld) 73.0 % Normal 43.0-75.0 [facility] Comment on above: Performed By: #### C BC #### [facility] [address] [place] [address] Dr. Tasha Dodson Platelet mean volume (Bld) [Entitic vol] 8.3 fL Critically low 9.5-13.5 [facility] Comment on above: Performed By: #### C BC #### [facility] [address] [place] [address] Dr. Tasha Dodson PLT 408 103/ul Normal 150-450 [facility] Comment on above: Performed By: #### C BC #### [facility] [address] [place] [address] Dr. Tasha Dodson RBC 4.16 106/ul Critically low 4.20-5.40 [facility] Comment on above: Performed By: #### C BC #### [facility] [address] [address] [address] Tasha Dodson WBC 13.0 103/ul Critically high 4.0-11.0 [facility] Comment on above: Performed By: #### C BC #### [facility] [address] [place] [address] Dr. Tasha Dodson CULTURE SPUTUMon 12-27-2021 CULTURE SPUTUM Culture Observations : NORMAL RESPIRATORY AMADOU. Normal [facility] Comment on above: Performed By: #### C BC #### [facility] [address] [place] [address] Dr. Tasha Dodson PROF 14(COMP METB)on 022 Albumin [Mass/Vol] 3.4 g/dL Normal 3.4-5.0 [facility] Comment on above: Performed By: #### C MADM, LIPA, BNP, CMP #### [facility] [address] [place] [address] Dr. Tasha Dodson Albumin/Globulin [Mass ratio] 1.0 {ratio} Normal [facility] Comment on above: Performed By: #### C MADM, LIPA, BNP, CMP #### [facility] [address] [place] [address] Dr. Tasha Dodson ALP [Catalytic activity/Vol] 54 U/L Normal 46-116 [facility] Comment on above: Performed By: #### C MADM, LIPA, BNP, CMP #### [facility] [address] [place] [address] Dr. Tasha Dodson ALT [Catalytic activity/Vol] 20 U/L Normal 14-59 [facility] Comment on above: Performed By: #### C MADM, LIPA, BNP, CMP #### [facility] [address] [place] [address] Dr. Tasha Dodson Anion gap [Moles/Vol] 10.8 mmol/L Normal [facility] Comment on above: Performed By: #### C MADM, LIPA, BNP, CMP #### [facility] [address] [place] [address] Dr. Tasha Dodson AST [Catalytic activity/Vol] 19 U/L Normal 15-37 [facility] Comment on above: Performed By: #### C MADM, LIPA, BNP, CMP #### [facility] [address] [place] [address] Dr. Tasha Dodson Bilirubin [Mass/Vol] 0.5 mg/dL Normal 0.2-1.0 [facility] Comment on above: Performed By: #### C MADM, LIPA, BNP, CMP #### [facility] [address] [place] [address] Dr. Tasha Dodson Calcium [Mass/Vol] 8.3 mg/dL Critically low 8.5-10.1 [facility] Comment on above: Performed By: #### C MADM, LIPA, BNP, CMP #### [facility] [address] [place] [address] Dr. Tasha Dodson Chloride [Moles/Vol] 89 mmol/L Critically low 98-107 [facility] Comment on above: Performed By: #### C MADM, LIPA, BNP, CMP #### [facility] [address] [place] [address] Dr. Tasha Dodson CO2 [Moles/Vol] 27.0 mmol/L Normal 21.0-32.0 [facility] Comment on above: Performed By: #### C MADM, LIPA, BNP, CMP #### [facility] [address] [place] [address] Dr. Tasah Dodson Creatinine [Mass/Vol] 0.69 mg/dL Normal 0.55-1.02 [facility] Comment on above: Performed By: #### C MADM, LIPA, BNP, CMP #### [facility] [address] [address] [address] Tasha Dodson EGFR-AF TRISTANIAN >60 Normal >=60 [facility] Comment on above: Performed By: #### C MADM, LIPA, BNP, CMP #### [facility] [address] [address] [address] Tasha Dodson EGFR-NON AF TRISTANIAN >60 Normal >=60 [facility] Comment on above: Performed By: #### C MADM, LIPA, BNP, CMP #### [facility] [address] [place] [address] Dr. Tasha Dodson Globulin (S) [Mass/Vol] 3.3 g/dL Normal [facility] Comment on above: Performed By: #### C MADM, LIPA, BNP, CMP #### [facility] [address] [place] [address] Dr. Tasha Dodson Glucose [Mass/Vol] 115 mg/dL Critically high 74-106 [facility] Comment on above: Performed By: #### C MADM, LIPA, BNP, CMP #### [facility] [address] [address] [address] Tasha Dodson Potassium [Moles/Vol] 2.7 mmol/L Critically low 3.5-5.1 [facility] Comment on above: Result Comment: Test Repeated. Critical Value Verified Performed By: #### C MADM, LIPA, BNP, CMP #### [facility] [address] [address] [address] Tasha Dodson Protein [Mass/Vol] 6.7 g/dL Normal 6.4-8.2 [facility] Comment on above: Performed By: #### C MADM, LIPA, BNP, CMP #### [facility] [address] [place] [address] Dr. Tasha Dodson Sodium [Moles/Vol] 123 mmol/L Critically low 136-145 [facility] Comment on above: Result Comment: Test Repeated. Critical Value Verified Performed By: #### C MADM, LIPA, BNP, CMP #### [facility] [address] [place] [address] Dr. Tasha Dodson Urea nitrogen [Mass/Vol] 6.0 mg/dL Critically low 7.0-18.0 [facility] Comment on above: Performed By: #### C MADM, LIPA, BNP, CMP #### [facility] [address] [address] [address] Tasha Dodson Urea nitrogen/Creatinine [Mass ratio] 8.7 mg/mg Normal [facility] Comment on above: Performed By: #### C MADM, LIPA, BNP, CMP #### [facility] [address] [address] [address] Tasha Dodson SPUTUM GRAM STAINon 12-28-19 COMMENTS Normal [facility] Comment on above: Performed By: #### T SH, BMP #### [facility] [address] [place] [address] Dr. Tasha Dodson DIPHTHEROIDS Normal [facility] Comment on above: Performed By: #### T SH, BMP #### [facility] [address] [address] [address] Tasha Dodson EPITHELIALS <25 Normal [facility] Comment on above: Performed By: #### T SH, BMP #### [facility] [address] [address] [address] Tasha Dodson FUNGAL ELEMENTS Normal [facility] Comment on above: Performed By: #### T SH, BMP #### [facility] [address] [address] [address] Tasha FAUST NEG BACILLI Normal [facility] Comment on above: Performed By: #### T SH, BMP #### [facility] [address] [address] [address] Tasha FAUST NEG DIPPLOCOCCI Normal [facility] Comment on above: Performed By: #### T SH, BMP #### [facility] [address] [place] [address] Dr. Tasha FAUST POS BACILLI Normal [facility] Comment on above: Performed By: #### T SH, BMP #### [facility] [address] [place] [address] Dr. Tasha Dodson GRAM POSITIVE COCCI MODERATE Normal [facility] Comment on above: Performed By: #### T SH, BMP #### [facility] [address] [address] [address] Tasha Dodson WBC (Bld) [#/Vol] 10*3/uL Normal [facility] Comment on above: Performed By: #### T SH, BMP #### [facility] [address] [address] [address] Tasha Dodson BNPon 12-26-2021 Natriuretic peptide B (Bld) [Mass/Vol] 148.0 pg/mL Normal <=1,800.0 [facility] Comment on above: Performed By: #### C MADM, LIPA, BNP, CMP #### [facility] [address] [place] [address] Dr. Tasha Dodson CARDIAC ANGELO ADMITon 022 CK [Catalytic activity/Vol] 139 U/L Normal 26-192 [facility] Comment on above: Performed By: #### C MADM, LIPA, BNP, CMP #### [facility] [address] [address] [address] Tasha Dodson CK.MB [Mass/Vol] 2.43 ng/mL Normal <=3.60 [facility] Comment on above: Performed By: #### C MADM, LIPA, BNP, CMP #### [facility] [address] [place] [address] Dr. Tasha Dodson HSTROP 12.2 pg/mL Normal 4.0-51.3 [facility] Comment on above: Result Comment: CUT- OFF POINTS HAVE BEEN ESTABLISHED BASED ON THE FOURTH UNIVERSAL DEFINITIONS OF MYOCARDIAL INFARCTION. THE UPPER REFERENCE LIMIT (URL) OF TROPONIN, DEFINED THE 99TH PERCENTILE OF cTnI DISTRIBUTION IN A REFERENCE POPULATION, HAS BEEN CONFIRMED THE DECISION THRESHOLD FOR IA DIAGNOSIS. Performed By: #### C MADM, LIPA, BNP, CMP #### [facility] [address] [address] [address] Tasha Dodson ELIZABETH 110 ng/mL Critically high 9-82 [facility] Comment on above: Performed By: #### C MADM, LIPA, BNP, CMP #### [facility] [address] [place] [address] Dr. Tasha Dodson CBC AUTO DIFFon 12-26-2021 BASO # 0.0 103/ul Normal 0.0-0.1 [facility] Comment on above: Performed By: #### C MADM, LIPA, BNP, CMP #### [facility] [address] [place] [address] Dr. Tasha Dodson Basophils/100 WBC (Bld) 0.3 % Normal 0.2-2.0 [facility] Comment on above: Performed By: #### C MADM, LIPA, BNP, CMP #### [facility] [address] [place] [address] Dr. Tasha Dodson EO # 0.1 103/ul Normal 0.0-0.7 [facility] Comment on above: Performed By: #### C MADM, LIPA, BNP, CMP #### [facility] [address] [place] [address] Dr. Tasha Dodson Eosinophils/100 WBC (Bld) 0.7 % Critically low 0.9-7.0 [facility] Comment on above: Performed By: #### C MADM, LIPA, BNP, CMP #### [facility] [address] [place] [address] Dr. Tasha Dodson Erythrocyte distribution width (RBC) [Ratio] 12.4 % Normal 11.0-15.0 [facility] Comment on above: Performed By: #### C MADM, LIPA, BNP, CMP #### [facility] [address] [place] [address] Dr. Tasha Dodson Hematocrit (Bld) [Volume fraction] 38.9 % Normal 36.0-48.0 [facility] Comment on above: Performed By: #### C MADM, LIPA, BNP, CMP #### [facility] [address] [place] [address] Dr. Tasha Dodson Hemoglobin (Bld) [Mass/Vol] 14.4 g/dL Normal 12.0-16.0 [facility] Comment on above: Performed By: #### C MADM, LIPA, BNP, CMP #### [facility] [address] [place] [address] Dr. Tasha Dodson IG # 0.08 10e3/ul Critically high 0.00-0.03 [facility] Comment on above: Performed By: #### C MADM, LIPA, BNP, CMP #### [facility] [address] [place] [address] Dr. Tasha Dodson IG % 0.5 % Normal 0.0-0.5 [facility] Comment on above: Performed By: #### C MADM, LIPA, BNP, CMP #### [facility] [address] [place] [address] Dr. Tasha Dodson LYMPH # 2.2 103/ul Normal 1.2-3.8 [facility] Comment on above: Performed By: #### C MADM, LIPA, BNP, CMP #### [facility] [address] [place] [address] Dr. Tasha Dodson Lymphocytes/100 WBC (Bld) 15.0 % Critically low 20.5-60.0 [facility] Comment on above: Performed By: #### C MADM, LIPA, BNP, CMP #### [facility] [address] [place] [address] Dr. Tasha Dodson MANUAL DIFF REQ NO Normal [facility] Comment on above: Performed By: #### C MADM, LIPA, BNP, CMP #### [facility] [address] [place] [address] Dr. Tasha Dodson MCH (RBC) [Entitic mass] 31.6 pg Normal 26.7-34.0 [facility] Comment on above: Performed By: #### C MADM, LIPA, BNP, CMP #### [facility] [address] [place] [address] Dr. Tasha Dodson MCHC (RBC) [Mass/Vol] 37.0 g/dL Critically high 29.9-35.2 [facility] Comment on above: Performed By: #### C MADM, LIPA, BNP, CMP #### [facility] [address] [place] [address] Dr. Tasha Dodson MCV (RBC) [Entitic vol] 85.3 fL Normal 81.0-99.0 [facility] Comment on above: Performed By: #### C MADM, LIPA, BNP, CMP #### [facility] [address] [place] [address] Dr. Tasha Dodson MONO # 1.0 103/ul Critically high 0.3-0.8 [facility] Comment on above: Performed By: #### C MADM, LIPA, BNP, CMP #### [facility] [address] [place] [address] Dr. Tasha Dodson Monocytes/100 WBC (Bld) 6.8 % Normal 1.7-12.0 [facility] Comment on above: Performed By: #### C MADM, LIPA, BNP, CMP #### [facility] [address] [place] [address] Dr. Tasha Dodson NEUT # 11.5 103/ul Critically high 1.4-6.5 [facility] Comment on above: Performed By: #### C MADM, LIPA, BNP, CMP #### [facility] [address] [place] [address] Dr. Tasha Dodson Neutrophils/100 WBC (Bld) 76.7 % Critically high 43.0-75.0 [facility] Comment on above: Performed By: #### C MADM, LIPA, BNP, CMP #### [facility] [address] [place] [address] Dr. Tasha Dodson Platelet mean volume (Bld) [Entitic vol] 8.6 fL Critically low 9.5-13.5 [facility] Comment on above: Performed By: #### C MADM, LIPA, BNP, CMP #### [facility] [address] [place] [address] Dr. Tasha Dodson PLT 491 103/ul Critically high 150-450 [facility] Comment on above: Performed By: #### C MADM, LIPA, BNP, CMP #### [facility] [address] [place], [place] [id number] Dr. Tasha Dodson RBC 4.56 106/ul Normal 4.20-5.40 [facility] Comment on above: Performed By: #### C MADM, LIPA, BNP, CMP #### [facility] [address] [place] [address] Dr. Tasha Dodson WBC 15.0 103/ul Critically high 4.0-11.0 [facility] Comment on above: Performed By: #### C JAIROM, LIPA, BNP, CMP #### [facility] [address] [place] [address] Dr. Tasha Dodson CULTURE URINEon 12-26-2021 CULTURE URINE Culture Observations : LIGHT GROWTH OF MIXED GENITAL AMADOU. NO POTENTIAL PATHOGENS SEEN. Normal [facility] Comment on above: Performed By: #### C BC #### [facility] [address] [place] [address] Dr. Tasha Dodson [facility]on SARS-CoV-2 (COVID-19) RNA CARITO+probe Ql (Unsp spec) Not detected Normal NOT DETECTED [facility] Comment on above: Result Comment: When diagnostic [...] for this test is supported by the Bug[employer] Driver of Health and Human Service's declaration that [...] #### C MADM, LIPA, BNP, CMP #### [facility] [address] [place] [address] Dr. Tasha Dodson ER URINE PROFILEon 2 Bilirubin Ql (U) Negative Normal NEGATIVE [facility] Comment on above: Performed By: #### T SH, BMP #### [facility] [address] [place] [address] Dr. Tasha Dodson Clarity (U) CLEAR Normal CLEAR [facility] Comment on above: Performed By: #### T SH, BMP #### [facility] [address] [place] [address] Dr. Tasha Dodson Color (U) LT. YELLOW Normal YELLOW [facility] Comment on above: Performed By: #### T SH, BMP #### [facility] [address] [place] [address] Dr. Tasha FERNANDES A micrscopic examination will be performed if indicated. Normal [facility] Comment on above: Performed By: #### T SH, BMP #### [facility] [address] [place] [address] Dr. Tasha Dodson Glucose Ql (U) Negative Normal NEGATIVE [facility] Comment on above: Performed By: #### T SH, BMP #### [facility] [address] [place] [address] Dr. Tasha Dodson Hemoglobin Ql (U) TRACE-INTACT Abnormal NEGATIVE [facility] Comment on above: Performed By: #### T SH, BMP #### [facility] [address] [place] [address] Dr. Tasha Dodson Ketones Ql (U) TRACE Abnormal NEGATIVE [facility] Comment on above: Performed By: #### T SH, BMP #### [facility] [address] [place] [address] Dr. Tasha Dodson LEUKOCYTES Negative Normal NEGATIVE [facility] Comment on above: Performed By: #### T SH, BMP #### [facility] [address] [place] [address] Dr. Tasha Dodson Nitrite Ql (U) Negative Normal NEGATIVE [facility] Comment on above: Performed By: #### T SH, BMP #### [facility] [address] [place] [address] Dr. Tasha Dodson pH (U) 7.0 [pH] Normal 5-9 [facility] Comment on above: Performed By: #### T SH, BMP #### [facility] [address] [place] [address] Dr. Tasha Dodson SPEC GRAVITY 1.010 Normal 1.005-<=1.0 25 [facility] Comment on above: Performed By: #### T SH, BMP #### [facility] [address] [place] [address] Dr. Tasha Dodson UA PROTEIN Negative Normal NEGATIVE/ TRACE [facility] Comment on above: Performed By: #### T SH, BMP #### [facility] [address] [place] [address] Dr. Tasha Dodson UR MICRO IND INDICATED Normal [facility] Comment on above: Performed By: #### T JESI, BMP #### [facility] [address] [place] [address] Dr. Tasha Dodson Urobilinogen Qn (U) 0.2 {Juan'U}/dL Normal 0.2 - 1. 0 [facility] Comment on above: Performed By: #### T JESI, BMP #### [facility] [address] [place] [address] Dr. Tasha Dodson INFLUENZA A AND B AGon 12-26 INFLUANEGH SEE BELOW Normal [facility] Comment on above: Result Comment: Nega tive for Flu A protein angiten. Infection due to Flu A cannot be ruled out. Flu A angiten in the sample may be below the detection limit of the test. Performed By: #### C BC #### [facility] [address] [place] [address] Dr. Tasha Dodson INFLUBNEGH SEE BELOW Normal [facility] Comment on above: Result Comment: Nega tive for Flu B protein antigen. Infection due to Flu B cannot be ruled out. Flu B antigen in the sample may be below the detection limit of the test. Performed By: #### C BC #### [facility] [address] [place] [address] Dr. Tasha Dodson INFLUENZA A AG Negative Normal NEGATIVE SEE COMMENT [facility] Comment on above: Performed By: #### C BC #### [facility] [address] [place] [address] Dr. Tasha Dodson INFLUENZA B AG Negative Normal NEGATIVE SEE COMMENT [facility] Comment on above: Performed By: #### C BC #### [facility] [address] [place] [address] Dr. Tasha Dodson INTERNAL CONTROLS Within Normal Limits Normal Wi thin Normal Limits [facility] Comment on above: Performed By: #### C BC #### [facility] [address] [place] [address] Dr. Tasha Dodson LACTATE/LACTIC ACIDon 2021 Lactate [Moles/Vol] 1.5 mmol/L Normal 0.4-1.9 [facility] Comment on above: Performed By: #### T SH, BMP #### [facility] [address] [place] [address] Dr. Tasha Dodson LIPASEon 12-26-2021 Lipase [Catalytic activity/Vol] 96.0 U/L Normal 73.0-393.0 [facility] Comment on above: Performed By: #### C MADM, LIPA, BNP, CMP #### [facility] [address] [place] [address] Dr. Tasha Dodson PROF 14(COMP METB)on 022 Albumin [Mass/Vol] 4.2 g/dL Normal 3.4-5.0 [facility] Comment on above: Performed By: #### C MADM, LIPA, BNP, CMP #### [facility] [address] [place] [address] Dr. Tasha Dodson Albumin/Globulin [Mass ratio] 1.1 {ratio} Normal [facility] Comment on above: Performed By: #### C MADM, LIPA, BNP, CMP #### [facility] [address] [place] [address] Dr. Tasha Dodson ALP [Catalytic activity/Vol] 68 U/L Normal 46-116 [facility] Comment on above: Performed By: #### C MADM, LIPA, BNP, CMP #### [facility] [address] [address] [address] Tasha Dodson ALT [Catalytic activity/Vol] 23 U/L Normal 14-59 [facility] Comment on above: Performed By: #### C MADM, LIPA, BNP, CMP #### [facility] [address] [place] [address] Dr. Tasha Dodson Anion gap [Moles/Vol] 12.3 mmol/L Normal Th [facility] Comment on above: Performed By: #### C MADM, LIPA, BNP, CMP #### [facility] [address] [place] [address] Dr. Tasha Dodson AST [Catalytic activity/Vol] 25 U/L Normal 15-37 [facility] Comment on above: Performed By: #### C MADM, LIPA, BNP, CMP #### [facility] [address] [place] [address] Dr. Tasha Dodson Bilirubin [Mass/Vol] 0.7 mg/dL Normal 0.2-1.0 [facility] Comment on above: Performed By: #### C MADM, LIPA, BNP, CMP #### [facility] [address] [place] [address] Dr. Tasha Dodson Calcium [Mass/Vol] 9.5 mg/dL Normal 8.5-10.1 [facility] Comment on above: Performed By: #### C MADM, LIPA, BNP, CMP #### [facility] [address] [place] [address] Dr. Tasha Dodson Chloride [Moles/Vol] 80 mmol/L Critically low 98-107 [facility] Comment on above: Performed By: #### C MADM, LIPA, BNP, CMP #### [facility] [address] [address] [address] Tasha Dodson CO2 [Moles/Vol] 27.1 mmol/L Normal 21.0-32.0 [facility] Comment on above: Performed By: #### C MADM, LIPA, BNP, CMP #### [facility] [address] [place] [address] Dr. Tasha Dodson Creatinine [Mass/Vol] 0.85 mg/dL Normal 0.55-1.02 [facility] Comment on above: Performed By: #### C MADM, LIPA, BNP, CMP #### [facility] [address] [place] [address] Dr. Tasha Dodson EGFR-AF TRISTANIAN >60 Normal >=60 [facility] Comment on above: Performed By: #### C MADM, LIPA, BNP, CMP #### [facility] [address] [place] [address] Dr. Tasha Dodson EGFR-NON AF TRISTANIAN >60 Normal >=60 [facility] Comment on above: Performed By: #### C MADM, LIPA, BNP, CMP #### [facility] [address] [place] [address] Dr. Tasha Dodson Globulin (S) [Mass/Vol] 3.9 g/dL Normal [facility] Comment on above: Performed By: #### C MADM, LIPA, BNP, CMP #### [facility] [address] [place] [address] Dr. Tasha Dodson Glucose [Mass/Vol] 132 mg/dL Critically high 74-106 [facility] Comment on above: Performed By: #### C MADM, LIPA, BNP, CMP #### [facility] [address] [place] [address] Dr. Tasha Dodson Potassium [Moles/Vol] 2.4 mmol/L Critically low 3.5-5.1 [facility] Comment on above: Performed By: #### C MADM, LIPA, BNP, CMP #### [facility] [address] [place] [address] Dr. Tasha Dodson Protein [Mass/Vol] 8.1 g/dL Normal 6.4-8.2 [facility] Comment on above: Performed By: #### C MADM, LIPA, BNP, CMP #### [facility] [address] [place] [address] Dr. Tasha Dodson Sodium [Moles/Vol] 116 mmol/L Critically low 136-145 [facility] Comment on above: Performed By: #### C MADM, LIPA, BNP, CMP #### [facility] [address] [place] [address] Dr. Tasha Dodson Urea nitrogen [Mass/Vol] 12.0 mg/dL Normal 7.0-18.0 [facility] Comment on above: Performed By: #### C MADM, LIPA, BNP, CMP #### [facility] [address] [place] [address] Dr. Tasha Dodson Urea nitrogen/Creatinine [Mass ratio] 14.1 mg/mg Normal [facility] Comment on above: Performed By: #### C MADM, LIPA, BNP, CMP #### [facility] [address] [place] [address] Dr. Tasha Dodson PROF CHEM 8 (BAS METB)on Anion gap [Moles/Vol] 11.4 mmol/L Normal [facility] Comment on above: Performed By: #### T SH, BMP #### [facility] [address] [place] [address] Dr. Tasha Dodson Calcium [Mass/Vol] 8.4 mg/dL Critically low 8.5-10.1 [facility] Comment on above: Performed By: #### T JESI, BMP #### [facility] [address] [place] [address] Dr. Tasha Dodson Chloride [Moles/Vol] 89 mmol/L Critically low 98-107 [facility] Comment on above: Performed By: #### T JESI, BMP #### [facility] [address] [place] [address] Dr. Tasha Dodson CO2 [Moles/Vol] 25.5 mmol/L Normal 21.0-32.0 [facility] Comment on above: Performed By: #### T SH, BMP #### [facility] [address] [place] [address] Dr. Tasha Dodson Creatinine [Mass/Vol] 0.89 mg/dL Normal 0.55-1.02 [facility] Comment on above: Performed By: #### T SH, BMP #### [facility] [address] [place] [address] Dr. Tasha Dodson EGFR-AF TRISTANIAN >60 Normal >=60 [facility] Comment on above: Performed By: #### T JESI, BMP #### [facility] [address] [place] [address] Dr. Tasha Dodson EGFR-NON AF TRISTANIAN 60 mL/min/1.73m2 Normal >=60 [facility] Comment on above: Performed By: #### T JESI, BMP #### [facility] [address] [place] [address] Dr. Tasha Dodson Glucose [Mass/Vol] 166 mg/dL Critically high 74-106 [facility] Comment on above: Performed By: #### T JESI, BMP #### [facility] [address] [place] [address] Dr. Tasha Dodson Potassium [Moles/Vol] 3.0 mmol/L Critically low 3.5-5.1 [facility] Comment on above: Performed By: #### T JESI, BMP #### [facility] [address] [place] [address] Dr. Tasha Dodson Sodium [Moles/Vol] 123 mmol/L Critically low 136-145 [facility] Comment on above: Performed By: #### T JESI, BMP #### [facility] [address] [place] [address] Dr. Tasha Dodson Urea nitrogen [Mass/Vol] 9.0 mg/dL Normal 7.0-18.0 [facility] Comment on above: Performed By: #### T JESI, BMP #### [facility] [address] [place] [address] Dr. Tasha Dodson Urea nitrogen/Creatinine [Mass ratio] 10.1 mg/mg Normal [facility] Comment on above: Performed By: #### T JESI, BMP #### [facility] [address] [place] [address] Dr. Tasha Dodson PROTIMEon 12-26-2021 INR Coag (PPP) [Relative time] 0.96 {INR} Normal [facility] Comment on above: Performed By: #### T JESI, BMP #### [facility] [address] [place] [address] Dr. Tasha Dodson INR GUIDELINES SEE BELOW Normal [facility] Comment on above: Result Comment: JO RED INR: 2.0 - 3.0 CONDITIONS NOT LISTED BELOW 2.5 - 3.5 FOR PROSTHETIC HEART VALVE REPLACEMENT 2.5 - 3.5 RECURRENT THROMBOSIS Performed By: #### T JESI, BMP #### [facility] [address] [place] [address] Dr. Tasha Dodson PT Coag (PPP) [Time] 10.4 s Normal 9.0-11.6 [facility] Comment on above: Performed By: #### T JESI, BMP #### [facility] [address] [place] [address] Dr. Tasha Dodson PTTon 12-26-2021 aPTT Coag (Bld) [Time] 26.2 s Normal 22.3-36.2 [facility] Comment on above: Performed By: #### T JESI, BMP #### [facility] [address] [place] [address] Dr. Tasha Dodson SODIUM RANDOM URINEon 2021 Sodium (U) [Moles/Vol] 71 mmol/L Normal 30-[address] [facility] Comment on above: Performed By: #### T JESI, BMP #### [facility] [address] [place] [address] Dr. Tasha Dodson T4on 12-26-2021 T4 [Mass/Vol] 10.60 ug/dL Normal 4.80-13.90 [facility] Comment on above: Performed By: #### C BC #### [facility] [address] [place] [address] Dr. Tasha Dodson TSHon 12-26-2021 TSH 5.236 uIU/mL Critically high 0.358-3.740 [facility] Comment on above: Performed By: #### C BC #### [facility] [address] [place] [address] Dr. Tasha Dodson URINE MICROSCOPIC ONLYon BACTERIA TRACE Abnormal NONE SEEN [facility] Comment on above: Performed By: #### T JESI, BMP #### [facility] [address] [place] [address] Dr. Tasha Dodson Bacteria identified Cx Nom (U) NOT INDICATED Normal [facility] Comment on above: Performed By: #### T SH, BMP #### [facility] [address] [place] [address] Dr. Tasha Dodson CAST NONE SEEN Normal NONE SEEN [facility] Comment on above: Performed By: #### T SH, BMP #### [facility] [address] [place] [address] Dr. Tasha Dodson Crystals LM Nom (Urine sed) NONE SEEN Normal NONE SEEN [facility] Comment on above: Performed By: #### T SH, BMP #### [facility] [address] [place] [address] Dr. Tasha Dodson Epithelial cells LM Ql (Urine sed) NONE SEEN Normal NONE SEEN /RARE [facility] Comment on above: Performed By: #### T SH, BMP #### [facility] [address] [place] [address] Dr. Tasha Dodson MUCOUS NONE SEEN Normal NONE SEEN [facility] Comment on above: Performed By: #### T SH, BMP #### [facility] [address] [place] [address] Dr. Tasha Dodson RBC 0-2 Normal 0-2 [facility] Comment on above: Performed By: #### T SH, BMP #### [facility] [address] [place] [address] Dr. Tasha Dodson WBC 0-2 Abnormal NONE SEEN [facility] Comment on above: Performed By: #### T SH, BMP #### [facility] [address] [place] [address] Dr. Tasha Dodson XR CHEST 1 Von [...] TING MIXON Date: 2021-12-26 11:32 Normal [facility] XR LSPINE MIN 4 VIEWSon 11-20 XR [...] JESUS BRUNO Date: 2021-11-30 22:52 Normal [facility] CBC AUTO DIFFon 11-09-2021 BASO # 0.1 103/ul Normal 0.0-0.1 [facility] Comment on above: Performed By: #### C MADM, LIPA, BNP, CMP #### [facility] [address] [place] [address] Dr. Tasha Dodson Basophils/100 WBC (Bld) 0.7 % Normal 0.2-2.0 [facility] Comment on above: Performed By: #### C MADM, LIPA, BNP, CMP #### [facility] [address] [place] [address] Dr. Tasha Dodson EO # 0.2 103/ul Normal 0.0-0.7 [facility] Comment on above: Performed By: #### C MADM, LIPA, BNP, CMP #### [facility] [address] [place] [address] Dr. Tasha Dodson Eosinophils/100 WBC (Bld) 1.8 % Normal 0.9-7.0 [facility] Comment on above: Performed By: #### C MADM, LIPA, BNP, CMP #### [facility] [address] [place] [address] Dr. Tasha Dodson Erythrocyte distribution width (RBC) [Ratio] 13.0 % Normal 11.0-15.0 [facility] Comment on above: Performed By: #### C MADM, LIPA, BNP, CMP #### [facility] [address] [place] [address] Dr. Tasha Dodson Hematocrit (Bld) [Volume fraction] 33.8 % Critically low 36.0-48.0 [facility] Comment on above: Performed By: #### C MADM, LIPA, BNP, CMP #### [facility] [address] [place] [address] Dr. Tasha Dodson Hemoglobin (Bld) [Mass/Vol] 12.5 g/dL Normal 12.0-16.0 [facility] Comment on above: Performed By: #### C MADM, LIPA, BNP, CMP #### [facility] [address] [place] [address] Dr. Tasha Dodson IG # 0.02 10e3/ul Normal 0.00-0.03 [facility] Comment on above: Performed By: #### C MADM, LIPA, BNP, CMP #### [facility] [address] [place] [address] Dr. Tasha Dodson IG % 0.2 % Normal 0.0-0.5 [facility] Comment on above: Performed By: #### C MADM, LIPA, BNP, CMP #### [facility] [address] [place] [address] Dr. Tasha Dodson LYMPH # 2.9 103/ul Normal 1.2-3.8 [facility] Comment on above: Performed By: #### C MADM, LIPA, BNP, CMP #### [facility] [address] [place] [address] Dr. Tasha Dodson Lymphocytes/100 WBC (Bld) 29.4 % Normal 20.5-60.0 [facility] Comment on above: Performed By: #### C MADM, LIPA, BNP, CMP #### [facility] [address] [place] [address] Dr. Tasha Dodson MANUAL DIFF REQ NO Normal [facility] Comment on above: Performed By: #### C MADM, LIPA, BNP, CMP #### [facility] [address] [place] [address] Dr. Tasha Dodson MCH (RBC) [Entitic mass] 34.1 pg Critically high 26.7-34.0 [facility] Comment on above: Performed By: #### C MADM, LIPA, BNP, CMP #### [facility] [address] [place] [address] Dr. Tasha Dodson MCHC (RBC) [Mass/Vol] 37.0 g/dL Critically high 29.9-35.2 [facility] Comment on above: Performed By: #### C MADM, LIPA, BNP, CMP #### [facility] [address] [place] [address] Dr. Tasha Dodson MCV (RBC) [Entitic vol] 92.1 fL Normal 81.0-99.0 [facility] Comment on above: Performed By: #### C MADM, LIPA, BNP, CMP #### [facility] [address] [place] [address] Dr. Tasha Dodson MONO # 0.8 103/ul Normal 0.3-0.8 [facility] Comment on above: Performed By: #### C MADM, LIPA, BNP, CMP #### [facility] [address] [place] [address] Dr. Tasha Dodson Monocytes/100 WBC (Bld) 8.2 % Normal 1.7-12.0 [facility] Comment on above: Performed By: #### C MADM, LIPA, BNP, CMP #### [facility] [address] [place] [address] Dr. Tasha Dodson NEUT # 5.9 103/ul Normal 1.4-6.5 [facility] Comment on above: Performed By: #### C MADM, LIPA, BNP, CMP #### [facility] [address] [place] [address] Dr. Tasha Dodson Neutrophils/100 WBC (Bld) 59.7 % Normal 43.0-75.0 [facility] Comment on above: Performed By: #### C MADM, LIPA, BNP, CMP #### [facility] [address] [place] [address] Dr. Tasha Dodson Platelet mean volume (Bld) [Entitic vol] 8.9 fL Critically low 9.5-13.5 [facility] Comment on above: Performed By: #### C MADM, LIPA, BNP, CMP #### [facility] [address] [place] [address] Dr. Tasha Dodson PLT 370 103/ul Normal 150-450 [facility] Comment on above: Performed By: #### C MADM, LIPA, BNP, CMP #### [facility] [address] [place] [address] Dr. Tasha Dodson RBC 3.67 106/ul Critically low 4.20-5.40 [facility] Comment on above: Performed By: #### C MADM, LIPA, BNP, CMP #### [facility] [address] [place] [address] Dr. Tasha Dodson WBC 9.9 103/ul Normal 4.0-11.0 [facility] Comment on above: Performed By: #### C MADM, LIPA, BNP, CMP #### [facility] [address] [place] [address] Dr. Tasha Dodson FREE T4on 11-09-2021 Free T4 [Mass/Vol] 1.48 ng/dL Critically high 0.76-1.46 [facility] Comment on above: Performed By: #### F T4 #### [facility] [address] [place] [address] Dr. Tasha Dodson PROF CHEM 8 (BAS METB)on Anion gap [Moles/Vol] 11.1 mmol/L Normal [facility] Comment on above: Performed By: #### T SH, BMP #### [facility] [address] [place] [address] Dr. Tasha Dodson Calcium [Mass/Vol] 9.3 mg/dL Normal 8.5-10.1 [facility] Comment on above: Performed By: #### T SH, BMP #### [facility] [address] [place] [address] Dr. Tasha Dodson Chloride [Moles/Vol] 92 mmol/L Critically low 98-107 [facility] Comment on above: Performed By: #### T SH, BMP #### [facility] [address] [place] [address] Dr. Tasha Dodson CO2 [Moles/Vol] 29.2 mmol/L Normal 21.0-32.0 [facility] Comment on above: Performed By: #### T SH, BMP #### [facility] [address] [place] [address] Dr. Tasha Dodson Creatinine [Mass/Vol] 0.68 mg/dL Normal 0.55-1.02 [facility] Comment on above: Performed By: #### T SH, BMP #### [facility] [address] [place] [address] Dr. Tasha Dodson EGFR-AF TRISTANIAN >60 Normal >=60 [facility] Comment on above: Performed By: #### T SH, BMP #### [facility] [address] [place] [address] Dr. Tasha Dodson EGFR-NON AF TRISTANIAN >60 Normal >=60 [facility] Comment on above: Performed By: #### T SH, BMP #### [facility] [address] [place] [address] Dr. Tasha Dodson Glucose [Mass/Vol] 109 mg/dL Critically high 74-106 [facility] Comment on above: Performed By: #### T SH, BMP #### [facility] [address] [place] [address] Dr. Tasha Dodson Potassium [Moles/Vol] 3.3 mmol/L Critically low 3.5-5.1 [facility] Comment on above: Performed By: #### T SH, BMP #### [facility] [address] [place] [address] Dr. Tasha Dodson Sodium [Moles/Vol] 129 mmol/L Critically low 136-[address] [facility] Comment on above: Performed By: #### T SH, BMP #### [facility] [address] [place] [address] Dr. Tasha Dodson Urea nitrogen [Mass/Vol] 9.0 mg/dL Normal 7.0-18.0 [facility] Comment on above: Performed By: #### T SH, BMP #### [facility] [address] [place] [address] Dr. Tasha Dodson Urea nitrogen/Creatinine [Mass ratio] 13.2 mg/mg Normal [facility] Comment on above: Performed By: #### T SH, BMP #### [facility] [address] [place] [address] Dr. Tasha Dodson TSHon 11-09-2021 TSH 1.193 uIU/mL Normal 0.358-3.740 [facility] Comment on above: Performed By: #### T JESI, BMP #### [facility] [address] [place] [address] Dr. Tasha Dodson LIPID PROFILEon 08-06-2021 CHOL-HDL RATIO NORM SEE BELOW Normal [facility] Comment on above: Result Comment: 3.3 - 4.4 LOW RISK 4.4 - 7.1 AVERAGE RISK 7.1 - 11.0 MODERATE RISK >11.0 HIGH RISK Performed By: #### C MADM, LIPA, BNP, CMP #### [facility] [address] [place] [address] Dr. Tasha Dodson Cholesterol [Mass/Vol] 198 mg/dL Normal <=[address] [facility] Comment on above: Performed By: #### C MADM, LIPA, BNP, CMP #### [facility] [address] [place] [address] Dr. Tasha Dodson Cholesterol in HDL [Mass/Vol] 77 mg/dL Critically high 40-60 [facility] Comment on above: Performed By: #### C MADM, LIPA, BNP, CMP #### [facility] [address] [place] [address] Dr. Tasha Dodson Cholesterol in LDL [Mass/Vol] 106.0 mg/dL Normal [facility] Comment on above: Performed By: #### C MADM, LIPA, BNP, CMP #### [facility] [address] [address] [address] Tasha Dodson Cholesterol.total/Shahana sterol in HDL [Mass ratio] 2.6 {ratio} Normal [facility] Comment on above: Performed By: #### C MADM, LIPA, BNP, CMP #### [facility] [address] [address] [address] Tasha Dodson HDL NORMAL > or = 60 mg/dl - LO W CARDIOVASCULAR RISK <40 mg/dl - HIGH CARDIOVASCULAR RISK Normal [facility] Comment on above: Performed By: #### C MADM, LIPA, BNP, CMP #### [facility] [address] [address] [address] Tasha Dodson LDL CALC NORMAL SEE BELOW Normal [facility] Comment on above: Result Comment: <100 mg/dl OPTIMAL 100 - 129 mg/dl NEAR OR ABOVE OPTIMAL 130 - 159 mg/dl BORDERLINE HIGH 160 - 189 mg/dl HIGH >190 mg/dl VERY HIGH Performed By: #### C MADM, LIPA, BNP, CMP #### [facility] [address] [address] [address] Tasha Dodson Triglyceride [Mass/Vol] 75 mg/dL Normal <=150 [facility] Comment on above: Performed By: #### C MADM, LIPA, BNP, CMP #### [facility] [address] [address] [address] Tasha Dodson VLDL CALC 15.0 mg/dL Normal [facility] Comment on above: Performed By: #### C MADM, LIPA, BNP, CMP #### [facility] [address] [address] [address] Tasha Dodson LIVER PROFILEon 08-06-2021 Albumin [Mass/Vol] 3.7 g/dL Normal 3.4-5.0 [facility] Comment on above: Performed By: #### C MADM, LIPA, BNP, CMP #### [facility] [address] [address] [address] Tasha Dodson Albumin/Globulin [Mass ratio] 1.0 {ratio} Normal [facility] Comment on above: Performed By: #### C MADM, LIPA, BNP, CMP #### [facility] [address] [place] [address] Dr. Tasha Dodson ALP [Catalytic activity/Vol] 62 U/L Normal 46-116 [facility] Comment on above: Performed By: #### C MADM, LIPA, BNP, CMP #### [facility] [address] [place] [address] Dr. Tasha Dodson ALT [Catalytic activity/Vol] 26 U/L Normal 14-59 [facility] Comment on above: Performed By: #### C MADM, LIPA, BNP, CMP #### [facility] [address] [place] [address] Dr. Tasha Dodson AST [Catalytic activity/Vol] 24 U/L Normal 15-37 [facility] Comment on above: Performed By: #### C MADM, LIPA, BNP, CMP #### [facility] [address] [place] [address] Dr. Tasha Dodson BILI, CONJUGATED 0.1 mg/dL Normal 0.0-0.2 [facility] Comment on above: Performed By: #### C MADM, LIPA, BNP, CMP #### [facility] [address] [place] [address] Dr. Tasha Dodson Bilirubin [Mass/Vol] 0.5 mg/dL Normal 0.2-1.0 [facility] Comment on above: Performed By: #### C MADM, LIPA, BNP, CMP #### [facility] [address] [place] [address] Dr. Tasha Dodson Globulin (S) [Mass/Vol] 3.8 g/dL Normal [facility] Comment on above: Performed By: #### C MADM, LIPA, BNP, CMP #### [facility] [address] [place] [address] Dr. Tasha Dodson Protein [Mass/Vol] 7.5 g/dL Normal 6.4-8.2 [facility] Comment on above: Performed By: #### C MADM, LIPA, BNP, CMP #### [facility] [address] [place] [address] Dr. Tasha Dodson FREE T4on 07-28-2021 Free T4 [Mass/Vol] 1.32 ng/dL Normal 0.76-1.46 [facility] Comment on above: Performed By: #### T SH, BMP #### [facility] [address] [place] [address] Dr. Tasha Dodson PROF CHEM 8 (BAS METB)on Anion gap [Moles/Vol] 11.6 mmol/L Normal [facility] Comment on above: Performed By: #### B MP, TSH #### [facility] [address] [place] [address] Dr. Tasha Dodson Calcium [Mass/Vol] 9.4 mg/dL Normal 8.5-10.1 [facility] Comment on above: Performed By: #### B MP, TSH #### [facility] [address] [place] [address] Dr. Tasha Dodson Chloride [Moles/Vol] 93 mmol/L Critically low 98-107 [facility] Comment on above: Performed By: #### B MP, TSH #### [facility] [address] [place] [address] Dr. Tasha Dodson CO2 [Moles/Vol] 29.8 mmol/L Normal 21.0-32.0 [facility] Comment on above: Performed By: #### B MP, TSH #### [facility] [address] [place] [address] Dr. Tasha Dodson Creatinine [Mass/Vol] 0.74 mg/dL Normal 0.55-1.02 [facility] Comment on above: Performed By: #### B MP, TSH #### [facility] [address] [place] [address] Dr. Tasha Dodson EGFR-AF TRISTANIAN >60 Normal >=60 [facility] Comment on above: Performed By: #### B MP, TSH #### [facility] [address] [address] [address] Tasha Dodson EGFR-NON AF TRISTANIAN >60 Normal >=60 [facility] Comment on above: Performed By: #### B MP, TSH #### [facility] [address] [address] [address] Tasha Dodson Glucose [Mass/Vol] 114 mg/dL Critically high 74-106 [facility] Comment on above: Performed By: #### B MP, TSH #### [facility] [address] [address] [address] Tasha Dodson Potassium [Moles/Vol] 3.4 mmol/L Critically low 3.5-5.1 [facility] Comment on above: Performed By: #### B MP, TSH #### [facility] [address] [place] [address] Dr. Tasha Dodson Sodium [Moles/Vol] 131 mmol/L Critically low 136-145 [facility] Comment on above: Performed By: #### B MP, TSH #### [facility] [address] [place] [address] Dr. Tasha Dodson Urea nitrogen [Mass/Vol] 12.0 mg/dL Normal 7.0-18.0 [facility] Comment on above: Performed By: #### B MP, TSH #### [facility] [address] [place] [address] Dr. Tasha Dodson Urea nitrogen/Creatinine [Mass ratio] 16.2 mg/mg Normal [facility] Comment on above: Performed By: #### B MP, TSH #### [facility] [address] [place] [address] Dr. Tasha Dodson TSHon 07-28-2021 TSH 1.790 uIU/mL Normal 0.358-3.740 [facility] Comment on above: Performed By: #### B MP, TSH #### [facility] [address] [place] [address] Dr. Tasha Ddoson TSH RANGE SEE BELOW Normal [facility] Comment on above: Result Comment: <0.3 4 UIU/ml HYPERTHYROID 0.34-5.60 UIU/ml EUTHYROID >5.60 UIU/ml HYPOTHYROID Performed By: #### B MP, TSH #### [facility] [address] [place] [address] Dr. Tasha Dodson CBC Auto Differentialon 10-0 Basophils (Bld) [#/Vol] 0.1 10*3/uL 0 - 0.2 K/uL [place] Basophils/100 WBC (Bld) 1.1 % [place] Eosinophils (Bld) [#/Vol] 0.2 10*3/uL 0 - 0.7 K/uL [place] Eosinophils/100 WBC (Bld) 1.4 % [place] Erythrocyte distribution width (RBC) [Ratio] 14.4 % 11.5 - 14.5 % [place] Hematocrit (Bld) [Volume fraction] 33.6 % Low 37 - 47 % [place] Hemoglobin (Bld) [Mass/Vol] 11.1 g/dL Low 12 - 16 g/dL [place] Interpretation and review of laboratory results Abnormal [place] Lymphocytes (Bld) [#/Vol] 2.3 10*3/uL 1 - 4.8 K/uL [place] Lymphocytes/100 WBC (Bld) 18.0 % [place] MCH (RBC) [Entitic mass] 29.5 pg 27 - 31.3 pg [place] MCHC (RBC) [Mass/Vol] 33.0 % 33 - 37 % [place] MCV (RBC) [Entitic vol] 89.5 fL 82 - 100 fL [place] Monocytes (Bld) [#/Vol] 0.9 10*3/uL High 0.2 - 0.8 K/uL [place] Monocytes/100 WBC (Bld) 6.9 % [place] Neutrophils Absolute 9.1 K/uL High 1.4 - 6 .5 K/uL [place] Neutrophils/100 WBC (Bld) 72.6 % [place] Platelets (Bld) [#/Vol] 548 10*3/uL High 130 - 400 K/uL [place] RBC (Bld) [#/Vol] 3.75 10*6/uL Low [place] WBC (Bld) [#/Vol] 12.5 10*3/uL High 4.8 - 10.8 K/uL [place] CBC With Platelet and Differ entialon 11-20-2018 Basophils (Bld) [#/Vol] 0.1 10*3/uL Normal 0.0-0.2 [facility] Comment on above: Performed By: #### E SR #### [facility] [address] [place] [address] Basophils/100 WBC (Bld) 1.1 % Normal [facility] Comment on above: Performed By: #### E SR #### [facility] [address] [place] [address] Eosinophils (Bld) [#/Vol] 0.2 10*3/uL Normal 0.0-0.7 [facility] Comment on above: Performed By: #### E SR #### [facility] [address] [place] [address] Eosinophils/100 WBC (Bld) 1.4 % Normal [facility] Comment on above: Performed By: #### E SR #### [facility] [address] [place] [address] Erythrocyte distribution width (RBC) [Ratio] 14.4 % Normal 11.5-14.5 [facility] Comment on above: Performed By: #### E SR #### [facility] [address] [place] [address] Hematocrit (Bld) [Volume fraction] 33.6 % Low 37.0-47.0 [facility] Comment on above: Performed By: #### E SR #### [facility] [address] [place] [address] Hemoglobin (Bld) [Mass/Vol] 11.1 g/dL Low 12.0-16.0 [facility] Comment on above: Performed By: #### E SR #### [facility] [address] [place] [address] Lymphocytes (Bld) [#/Vol] 2.3 10*3/uL Normal 1.0-4.8 [facility] Comment on above: Performed By: #### E SR #### [facility] [address] [place] [address] Lymphocytes/100 WBC (Bld) 18.0 % Normal [facility] Comment on above: Performed By: #### E SR #### [facility] [address] [place] [address] MCH (RBC) [Entitic mass] 29.5 pg Normal 27.0-31.3 [facility] Comment on above: Performed By: #### E SR #### [facility] [address] [place] [address] MCHC (RBC) [Mass/Vol] 33.0 % Normal 33.0-37.0 [facility] Comment on above: Performed By: #### E SR #### [facility] [address] [place] [address] MCV (RBC) [Entitic vol] 89.5 fL Normal 82.0-100.0 [facility] Comment on above: Performed By: #### E SR #### [facility] [address] [place] [address] Monocytes (Bld) [#/Vol] 0.9 10*3/uL Critically high 0.2-0. 8 [facility] Comment on above: Performed By: #### E SR #### [facility] [address] [place] [address] Monocytes/100 WBC (Bld) 6.9 % Normal [facility] Comment on above: Performed By: #### E SR #### [facility] [address] [place] [address] Neutrophils (Bld) [#/Vol] 9.1 10*3/uL Critically high 1.4-6.5 [facility] Comment on above: Performed By: #### E SR #### [facility] [address] [place] [address] Neutrophils/100 WBC (Bld) 72.6 % Normal [facility] Comment on above: Performed By: #### E SR #### [facility] [address] [place] [address] Platelets (Bld) [#/Vol] 548 10*3/uL Critically high 130-40 0 [facility] Comment on above: Performed By: #### E SR #### [facility] [address] [place] [address] RBC (Bld) [#/Vol] 3.75 10*6/uL Low 4.20-5.40 [facility] Comment on above: Performed By: #### E SR #### [facility] [address] [place] [address] WBC (Bld) [#/Vol] 12.5 10*3/uL Critically high 4.8-10.8 [facility] Comment on above: Performed By: #### E SR #### [facility] [address] [place] [address] EKG 12 Leadon 11-20-2018 Atrial Rate 79 BPM [facility] [place] P [place] 58 degrees [facility] [place] P-R Interval 176 ms [facility] [place] Q-T Interval 404 ms [facility] [place] QRS Duration 130 ms [facility] [place] QTc Calculation ([place]az[place]) 463 ms [facility] [place] R [place] -11 degrees [facility] [place] T [place] 5 degrees [facility] [place] Urea nitrogen [Mass/Vol] Normal sinus rhythm Right bundle branch block Moderate voltage criteria for LVH, may be normal variant Abnormal ECG When compared with ECG of 13-NOV-2018 08:33, No significant change was found Confirmed by Анна Zamarripa ([id number]) on 11/20/2018 9:39:56 AM [facility] [place] Ventricular Rate 79 BPM [place] Joseph, Chpo Incoming Results From [place] - 11/20/2018 9:40 AM EDT Normal sinus rhythm Right bundle branch block Moderate voltage criteria for LVH, may be normal variant Abnormal ECG When compared with ECG of 13-NOV-2018 08:33, No significant change was found Confirmed by Анна Zamarripa ([id number]) on 11/20/2018 9:39:56 AM [place] CBC Auto Differentialon 10-23 Neutrophils Absolute 6.1 K/uL 1.4 - 6 .5 K/uL [place] CBC With Platelet and Differ entialon 11-19-2018 Basophils (Bld) [#/Vol] 0.2 10*3/uL Normal 0.0-0.2 [place] Comment on above: Performed By: #### C MP #### [facility] [address] [place] [address] Basophils/100 WBC (Bld) 1.5 % Normal [place] Comment on above: Performed By: #### C MP #### [facility] [address] [place] [address] Eosinophils (Bld) [#/Vol] 0.3 10*3/uL Normal 0.0-0.7 [place] Comment on above: Performed By: #### C MP #### [facility] [address] [place] [address] Eosinophils/100 WBC (Bld) 2.5 % Normal [place] Comment on above: Performed By: #### C MP #### [facility] [address] [address] Erythrocyte distribution width (RBC) [Ratio] 14.1 % Normal 11.5-14.5 [place] Comment on above: Performed By: #### C MP #### [facility] [address] [place] [address] Hematocrit (Bld) [Volume fraction] 29.3 % Low 37.0-47.0 [place] Comment on above: Performed By: #### C MP #### [facility] [address] [facility] [address] Hemoglobin (Bld) [Mass/Vol] 10.1 g/dL Low 12.0-16.0 [place] Comment on above: Performed By: #### C MP #### [facility] [address] [facility] [address] Lymphocytes (Bld) [#/Vol] 2.8 10*3/uL Normal 1.0-4.8 [place] Comment on above: Performed By: #### C MP #### [facility] [address] [facility] [address] Lymphocytes/100 WBC (Bld) 27.3 % Normal [place] Comment on above: Performed By: #### C MP #### [facility] [address] [facility] [address] MCH (RBC) [Entitic mass] 30.7 pg Normal 27.0-31.3 [place] Comment on above: Performed By: #### C MP #### [facility] [address] [facility] [address] MCHC (RBC) [Mass/Vol] 34.6 % Normal 33.0-37.0 [place] Comment on above: Performed By: #### C MP #### [facility] [address] [facility] [address] MCV (RBC) [Entitic vol] 88.9 fL Normal 82.0-100.0 M [place] Comment on above: Performed By: #### C MP #### [facility] [address] [facility] [address] Monocytes (Bld) [#/Vol] 0.9 10*3/uL Critically high 0.2-0. 8 [place] Comment on above: Performed By: #### C MP #### [facility] [address] [place] [address] Monocytes/100 WBC (Bld) 9.2 % Normal M [place] Comment on above: Performed By: #### C MP #### [facility] [address] [place] [address] Neutrophils (Bld) [#/Vol] 6.1 10*3/uL Normal 1.4-6.5 [facility] Comment on above: Performed By: #### C MP #### [facility] [address] [address] Neutrophils/100 WBC (Bld) 59.5 % Normal [place] Comment on above: Performed By: #### C MP #### [facility] [address] [address] Platelets (Bld) [#/Vol] 396 10*3/uL Normal 130-400 [place] Comment on above: Performed By: #### C MP #### [facility] [address] [place] [address] RBC (Bld) [#/Vol] 3.30 10*6/uL Low 4.20-5.40 [place] Comment on above: Performed By: #### C MP #### [facility] [address] [address] WBC (Bld) [#/Vol] 10.2 10*3/uL Normal 4.8-10.8 [place] Comment on above: Performed By: #### C MP #### [facility] [address] [address] High Sensitivity CRPon 11-19 High Sensitivity CRP 89.2 mg/L Critically high 0.0-5.0 [facility] [facility] Comment on above: Performed By: #### E SR #### [facility] [address] [place] [address] High sensitivity CRPon 11-19 CRP High Sensitivity 89.2 mg/L High 0 - 5 mg/L [place] Interpretation and review of laboratory results Abnormal [place] Otheron 11-19-2018 Interpretation and review of laboratory results Abnormal [place] Sedimentation Rateon 019 Sedimentation Rate 55 mm Critically high 0-30 [facility] Comment on above: Performed By: #### C MP #### [facility] [address] [place] [address] Sed Rate 55 mm High 0 - 30 mm [place] Basic Metabolic Panelon 10-22 Anion gap [Moles/Vol] 14 mmol/L Normal 9-15 [facility] Comment on above: Performed By: #### C MP #### [facility] [address] [place] [address] Calcium [Mass/Vol] 8.8 mg/dL Normal 8.5-9.9 [facility] Comment on above: Performed By: #### C MP #### [facility] [address] [place] [address] Chloride [Moles/Vol] 95 mmol/L Normal 95-107 [facility] Comment on above: Performed By: #### C MP #### [facility] [address] [place] [address] CO2 [Moles/Vol] 26 mmol/L Normal 20-31 [facility] Comment on above: Performed By: #### C MP #### [facility] [address] [place] [address] Creatinine [Mass/Vol] 0.58 mg/dL Normal 0.50-0.90 [facility] Comment on above: Performed By: #### C MP #### [facility] [address] [place] [address] GFR/1.73 sq M predicted among blacks MDRD (S/P/Bld) [Vol rate/Area] mL/min/{1.73_m2} Normal >60 [facility] Comment on above: Result Comment: >60 mL/min/1.73m2 EGFR, calc. for ages 18 and older using the MDRD formula (not corrected for weight), is valid for stable renal function. Performed By: #### C MP #### [facility] [address] [place] [address] GFR/1.73 sq M.predicted MDRD (S/P/Bld) [Vol rate/Area] mL/min/{1.73_m2} Normal >60 [facility] Comment on above: Result Comment: >60 mL/min/1.73m2 EGFR, calc. for ages 18 and older using the MDRD formula (not corrected for weight), is valid for stable renal function. Performed By: #### C MP #### [facility] [address] [place] [address] Glucose [Mass/Vol] 156 mg/dL Critically high 70-99 [facility] Comment on above: Performed By: #### C MP #### [facility] [address] [place] [address] Potassium [Moles/Vol] 3.3 mmol/L Low 3.4-4.9 [facility] Comment on above: Performed By: #### C MP #### [facility] [address] [place] [address] Sodium [Moles/Vol] 135 mmol/L Normal 135-144 [facility] Comment on above: Performed By: #### C MP #### [facility] [address] [place] [address] Urea nitrogen [Mass/Vol] 11 mg/dL Normal 8-23 [facility] Comment on above: Performed By: #### C MP #### [facility] [address] [place] [address] Anion gap [Moles/Vol] 14 mmol/L [facility], [place] Calcium [Mass/Vol] 8.8 mg/dL 8.5 - 9.9 mg/dL [facility], [place] Chloride [Moles/Vol] 95 mmol/L [facility], [place] CO2 [Moles/Vol] 26 mmol/L [place] Creatinine [Mass/Vol] 0.58 mg/dL 0.5 - 0.9 mg/dL [place] GFR >60.0 >60 [place] Comment on above: >60 mL/min/1.73m2 EG FR, calc. for ages 18 and older using the MDRD formula (not corrected for weight), is valid for stable renal function. GFR Non- >60.0 >60 [place] Comment on above: >60 mL/min/1.73m2 EG FR, calc. for ages 18 and older using the MDRD formula (not corrected for weight), is valid for stable renal function. Glucose [Mass/Vol] 156 mg/dL High 70 - 99 mg/dL [place] Interpretation and review of laboratory results Abnormal [place] Potassium [Moles/Vol] 3.3 mmol/L [place] Sodium [Moles/Vol] 135 mmol/L [place] Urea nitrogen [Mass/Vol] 11 mg/dL 8 - 23 mg/dL [place] Magnesiumon 11-18-2018 Magnesium [Mass/Vol] 1.8 mg/dL Normal 1.7-2.4 [facility] Comment on above: Performed By: #### C MP #### [facility] [address] [facility] [address] Magnesium [Mass/Vol] 1.8 mg/dL 1.7 - 2 .4 mg/dL [place] TSH w/out Reflexon 9 TSH Qn 0.880 uIU/mL Normal 0.440-3.86 [facility] Comment on above: Performed By: #### C MP #### [facility] [address] [facility] [address] TSH without Reflexon 019 TSH Qn 0.880 m[IU]/L [place] CBC Auto Differentialon 10-22 Basophils (Bld) [#/Vol] 0.1 10*3/uL 0 - 0.2 K/uL [place] Basophils/100 WBC (Bld) 0.7 % M [place] Eosinophils (Bld) [#/Vol] 0.4 10*3/uL 0 - 0.7 K/uL [place] Eosinophils/100 WBC (Bld) 2.8 % [place] Erythrocyte distribution width (RBC) [Ratio] 14.2 % 11.5 - 14.5 % [place] Hematocrit (Bld) [Volume fraction] 32.3 % Low 37 - 47 % [place] Hemoglobin (Bld) [Mass/Vol] 10.8 g/dL Low 12 - 16 g/dL [place] Interpretation and review of laboratory results Abnormal [place] Lymphocytes (Bld) [#/Vol] 2.6 10*3/uL 1 - 4.8 K/uL [place] Lymphocytes/100 WBC (Bld) 16.8 % [place] MCH (RBC) [Entitic mass] 30.3 pg 27 - 31.3 pg [place] MCHC (RBC) [Mass/Vol] 33.4 % 33 - 37 % [place] MCV (RBC) [Entitic vol] 90.5 fL 82 - 100 fL [place] Monocytes (Bld) [#/Vol] 1.3 10*3/uL High 0.2 - 0.8 K/uL [place] Monocytes/100 WBC (Bld) 8.3 % M [place] Neutrophils Absolute 11.1 K/uL High 1.4 - 6 .5 K/uL [place] Neutrophils/100 WBC (Bld) 71.4 % [place] Platelets (Bld) [#/Vol] 375 10*3/uL 130 - 400 K/uL [place] RBC (Bld) [#/Vol] 3.57 10*6/uL [place] WBC (Bld) [#/Vol] 15.5 10*3/uL High 4.8 - 10.8 K/uL [place] CBC With Platelet and Differ entialon 11-17-2018 Basophils (Bld) [#/Vol] 0.1 10*3/uL Normal 0.0-0.2 [facility] Comment on above: Performed By: #### C MP #### [facility] [address] [place] [address] Basophils/100 WBC (Bld) 0.7 % Normal [facility] Comment on above: Performed By: #### C MP #### [facility] [address] [place] [place] [address] Eosinophils (Bld) [#/Vol] 0.4 10*3/uL Normal 0.0-0.7 [facility] Comment on above: Performed By: #### C MP #### [facility] [address] [place] [place] [address] Eosinophils/100 WBC (Bld) 2.8 % Normal [facility] Comment on above: Performed By: #### C MP #### [facility] [address] [place] [place] [address] Erythrocyte distribution width (RBC) [Ratio] 14.2 % Normal 11.5-14.5 [facility] Comment on above: Performed By: #### C MP #### [facility] [address] [place] [place] [address] Hematocrit (Bld) [Volume fraction] 32.3 % Low 37.0-47.0 [facility] Comment on above: Performed By: #### C MP #### [facility] [address] [place] [place] [address] Hemoglobin (Bld) [Mass/Vol] 10.8 g/dL Low 12.0-16.0 [facility] Comment on above: Performed By: #### C MP #### [facility] [address] [place] [place] [address] Lymphocytes (Bld) [#/Vol] 2.6 10*3/uL Normal 1.0-4.8 [facility] Comment on above: Performed By: #### C MP #### [facility] [address] [place] [address] Lymphocytes/100 WBC (Bld) 16.8 % Normal [facility] Comment on above: Performed By: #### C MP #### [facility] [address] [place] [address] MCH (RBC) [Entitic mass] 30.3 pg Normal 27.0-31.3 [facility] Comment on above: Performed By: #### C MP #### [facility] [address] [place] [address] MCHC (RBC) [Mass/Vol] 33.4 % Normal 33.0-37.0 [facility] Comment on above: Performed By: #### C MP #### [facility] [address] [place] [address] MCV (RBC) [Entitic vol] 90.5 fL Normal 82.0-100.0 [facility] Comment on above: Performed By: #### C MP #### [facility] [address] [place] [address] Monocytes (Bld) [#/Vol] 1.3 10*3/uL Critically high 0.2-0. 8 [facility] Comment on above: Performed By: #### C MP #### [facility] [address] [place] [address] Monocytes/100 WBC (Bld) 8.3 % Normal [facility] Comment on above: Performed By: #### C MP #### [facility] [address] [place] [address] Neutrophils (Bld) [#/Vol] 11.1 10*3/uL Critically high 1.4-6.5 [facility] Comment on above: Performed By: #### C MP #### [facility] [address] [place] [address] Neutrophils/100 WBC (Bld) 71.4 % Normal [facility] Comment on above: Performed By: #### C MP #### [facility] [address] [place] [address] Platelets (Bld) [#/Vol] 375 10*3/uL Normal 130-400 [facility] Comment on above: Performed By: #### C MP #### [facility] [address] [place] [address] RBC (Bld) [#/Vol] 3.57 10*6/uL Low 4.20-5.40 [facility] Comment on above: Performed By: #### C MP #### [facility] [address] [place] [address] WBC (Bld) [#/Vol] 15.5 10*3/uL Critically high 4.8-10.8 [facility] Comment on above: Performed By: #### C MP #### [facility] [address] [place] [address] High Sensitivity CRPon 11-17 High Sensitivity CRP 230.1 mg/L Critically high 0.0-5.0 [facility] Comment on above: Performed By: #### C MP #### [facility] [address] [place] [address] High sensitivity CRPon 11-17 CRP High Sensitivity 230.1 mg/L High 0 - 5 mg/L [facility] [place] Interpretation and review of laboratory results Abnormal [facility] Sedimentation Rateon 019 Sedimentation Rate 50 mm Critically high 0-30 [facility] Comment on above: Performed By: #### C MP #### [facility] [address] [place] [address] Interpretation and review of laboratory results Ab[facility] [place] [place] Sed Rate 50 mm High 0 - 30 mm [facility] DUP LOWER EXTREMITIES VAUGHN ATERAL VENOUSon 11-17-2018 NO DVT IDENTIFIED IN EITHER LOWER EXTREMITY. [facility] [employer] [place], [place] Joseph, Chpo Incoming Radiant Results From [employer] - 11/17/2018 8:05 AM EDT US DUP [...] NO DVT IDENTIFIED IN EITHER LOWER EXTREMITY. [place] DUP LOWER EXTREMITIES BILATERAL VENOUS : 11/16/2018 CLINICAL HISTORY: LEG SWELLING, PAIN, DVT SUSPECTED . COMPARISON: None available. Grayscale, compression, color and waveform Doppler analysis of both lower extremity deep venous systems was performed with augmentation. FINDINGS: There is no deep venous thrombosis, abnormal masses, fluid collections or other findings of concern identified within either lower extremity. [place] Urine Cultureon 11-17-2018 Bacteria identified Cx Nom (U) No growth 24 hours [place], [place] ORDERED BY: ADDY COKER SOURCE: Urine Clean Catch COLLECTED: 11/15/18 19:05 ANTIBIOTICS AT DI.: RECEIVED : 11/15/18 19:05 [place] CBC With Platelet and Differ entialon 11-16-2018 Neutrophils (Bld) [#/Vol] 15.5 10*3/uL Critically high 1.4-6.5 [facility] Comment on above: Performed By: #### P TT #### [facility] [address] [facility] [address] Basophils (Bld) [#/Vol] 0.2 10*3/uL Normal 0.0-0.2 [place] Comment on above: Performed By: #### P TT #### [facility] [address] [facility] [address] Basophils/100 WBC (Bld) 0.9 % Normal M [place] Comment on above: Performed By: #### P TT #### [facility] [address] [facility] [address] Eosinophils (Bld) [#/Vol] 0.1 10*3/uL Normal 0.0-0.7 [place] Comment on above: Performed By: #### P TT #### [facility] [address] [place] [address] Eosinophils/100 WBC (Bld) 0.8 % Normal [place] Comment on above: Performed By: #### P TT #### [facility] [address] [place] [address] Erythrocyte distribution width (RBC) [Ratio] 14.4 % Normal 11.5-14.5 [place] Comment on above: Performed By: #### P TT #### [facility] [address] [address] Hematocrit (Bld) [Volume fraction] 33.4 % Low 37.0-47.0 [place] Comment on above: Performed By: #### P TT #### [facility] [address] [address] Hemoglobin (Bld) [Mass/Vol] 11.0 g/dL Low 12.0-16.0 [place] Comment on above: Performed By: #### P TT #### [facility] [address] [place] [address] Lymphocytes (Bld) [#/Vol] 1.5 10*3/uL Normal 1.0-4.8 [place] Comment on above: Performed By: #### P TT #### [facility] [address] [place] [address] Lymphocytes/100 WBC (Bld) 7.9 % Normal [place] Comment on above: Performed By: #### P TT #### [facility] [address] [address] MCH (RBC) [Entitic mass] 29.4 pg Normal 27.0-31.3 [place] Comment on above: Performed By: #### P TT #### [facility] [address] [place] [address] MCHC (RBC) [Mass/Vol] 32.9 % Low 33.0-37.0 [place] Comment on above: Performed By: #### P TT #### [facility] [address] [place] [place] [address] MCV (RBC) [Entitic vol] 89.4 fL Normal 82.0-100.0 [place] Comment on above: Performed By: #### P TT #### [facility] [address] [place] [address] Monocytes (Bld) [#/Vol] 1.3 10*3/uL Critically high 0.2-0. 8 [place] Comment on above: Performed By: #### P TT #### [facility] [address] [place] [address] Monocytes/100 WBC (Bld) 7.1 % Normal [place] Comment on above: Performed By: #### P TT #### [facility] [address] [place] [address] Neutrophils/100 WBC (Bld) 83.3 % Normal [place] Comment on above: Performed By: #### P TT #### [facility] [address] [place] [address] Platelets (Bld) [#/Vol] 304 10*3/uL Normal 130-400 [place] Comment on above: Performed By: #### P TT #### [facility] [address] [facility] [place] [address] RBC (Bld) [#/Vol] 3.74 10*6/uL Low 4.20-5.40 [place] Comment on above: Performed By: #### P TT #### [facility] [address] [place] [address] WBC (Bld) [#/Vol] 18.6 10*3/uL Critically high 4.8-10.8 [place] Comment on above: Performed By: #### P TT #### [facility] [address] [place] [address] CBC auto differentialon 10-22 Interpretation and review of laboratory results [facility] Absolute 15.5 K/uL High 1.4 - 6 .5 K/uL [facility] HI ECHO Complete 2D W Doppler W Coloron 11-16-2018 Transthoracic Echocardiography Report (TTE) Demographics Patient Name MERCY GANDHI Gender Female Patient Number [id number] Race Unknown Ethnicity Visit Number [id number] Room Number R238 Corporate ID Date of Study 11/16/2018 Referring Physician DO Natalia Dickens Date of 1935 Program Attendant Althea Bella THADDEUSBOB Age 83 year(s) Interpreting [facility] Physician Cardiology Cain Quinonez MD Procedure [...] Gradient: 4.03 mmHg Estimated PASP: 40.86 mmHg SC ED Velocity: 1.27 m/s LVOT Peak Velocity: [...] Root: 2.35 cm LVOT Diameter: 1.65 cm [facility] [place], [place] Joseph, Chpo Incoming Cardiovascular Results From [facility] - 11/16/2018 5:05 PM EDT Transthoracic Echocardiography Report (TTE) Demographics Patient Name MERCY GANDHI Gender Female Patient Number [id number] Race Unknown Ethnicity Visit Number [id number] Room Number R238 Corporate ID Date of Study 11/16/2018 [facility]erring [facility] CrystalDO You Number Date of 1935 Program Attendant Althea Bella BOB Age 83 year(s) Interpreting [facility] Physician Cardiology Cain Quinonez MD Procedure [...] Gradient: 4.03 mmHg Estimated PASP: 40.86 mmHg SC ED Velocity: 1.27 m/s LVOT Peak Velocity: [...] Root: 2.35 cm LVOT Diameter: 1.65 cm [place] Microscopic Urinalysison Bacteria, UA Negative /HPF [place] Epi Cells 3-5 /HPF [place] Interpretation and review of laboratory results Abnormal [place] RBC (U) [#/Vol] 3-5 Abnormal [place] Renal Epithelial, Urine 0-2 Abnormal /HPF M [place] WBC, UA None seen [place] CAROTID ARTERY BILATERALo n 11-16-2018 [...] Damped resistive CCA decreased decreased resistive CCA [place] Joseph, Chpo Incoming Radiant Results From [employer] - 11/16/2018 10:40 AM EDT Patient : [...] Damped resistive CCA decreased decreased resistive CCA [place], [place] Patient 5 : 1935 Age: 83 years [...] and noncalcified plaque bilateral carotid arterial systems [place] US DUP LOWER EXTREMITIES VAUGHN ATERAL [...] De Souza MD 11/17/18 Final result Normal [facility] Urine Microscopicon 11-17-19 19 Bacteria LM.HPF (Urine sed) [#/Area] Negative Normal [facility] Comment on above: Performed By: #### P TT #### [facility] [address] [facility] [address] Epithelial cells LM Ql (Urine sed) 3-5 Normal [facility] Comment on above: Performed By: #### P TT #### [facility] [address] [facility] [address] RBC (U) [#/Vol] 3-5 Abnormal 0-2 [facility] Comment on above: Performed By: #### P TT #### [facility] [address] [place] [address] Urine Renal Epithelial 0-2 Abnormal [facility] Comment on above: Performed By: #### P TT #### [facility] [address] [place] [address] WBC (U) [#/Vol] None seen Normal 0-5 [facility] Comment on above: Performed By: #### P TT #### [facility] [address] [place] [address] XR CHEST PORTABLEon 11-17-19 19 Joseph, Chpo Incoming Radiant Results From [employer] - 11/16/2018 10:21 AM EDT EXAMINATION: XR CHEST PORTABLE CLINICAL HISTORY: fever . History of back surgery. COMPARISONS: None available. FINDINGS: Single AP portable view the chest obtained on November 15, 2018 at 2124 hours. The heart is not enlarged. Mediastinum is not widened. Calcified aorta is not dilated. Lungs are clear. The chest wall is unremarkable. CONCLUSION: NO ACUTE PROCESS [place] EXAMINATION: XR CHES T PORTABLE CLINICAL HISTORY: fever . History of back surgery. COMPARISONS: None available. FINDINGS: Single AP portable view the chest obtained on November 15, 2018 at 2124 hours. The heart is not enlarged. Mediastinum is not widened. Calcified aorta is not dilated. Lungs are clear. The chest wall is unremarkable. CONCLUSION: NO ACUTE PROCESS [place] CBC Auto Differentialon 10-22 Anisocytosis Ql (Bld) 1+ [place], [place] Bands Relative 4 % Low 5 - 11 % [place] Basophils (Bld) [#/Vol] 0.0 10*3/uL 0 - 0.2 K/uL [place] Basophils/100 WBC (Bld) 0.6 % M [place] Eosinophils (Bld) [#/Vol] 0.0 10*3/uL 0 - 0.7 K/uL [place] Eosinophils/100 WBC (Bld) 0.9 % [place] Erythrocyte distribution width (RBC) [Ratio] 14.6 % High 11.5 - 14.5 % [place] Hematocrit (Bld) [Volume fraction] 33.3 % Low 37 - 47 % [place] Hemoglobin (Bld) [Mass/Vol] 10.9 g/dL Low 12 - 16 g/dL [place] Interpretation and review of laboratory results Abnormal [place] Lymphocytes (Bld) [#/Vol] 3.5 10*3/uL 1 - 4.8 K/uL [place] Lymphocytes/100 WBC (Bld) 17.0 % [place] MCH (RBC) [Entitic mass] 29.8 pg 27 - 31.3 pg [place] MCHC (RBC) [Mass/Vol] 32.9 % Low 33 - 37 % [place] MCV (RBC) [Entitic vol] 90.7 fL 82 - 100 fL [place] Microcytes 1+ [place] Monocytes (Bld) [#/Vol] 0.0 10*3/uL Low 0.2 - 0.8 K/uL [place] Monocytes/100 WBC (Bld) 7.7 % [place] Neutrophils Absolute 17.3 K/uL High 1.4 - 6 .5 K/uL [place] Neutrophils/100 WBC (Bld) 79.0 % [place] PLATELET SLIDE REVIEW Normal [place], [place] Platelets (Bld) [#/Vol] 315 10*3/uL 130 - 400 K/uL [place] RBC (Bld) [#/Vol] 3.67 10*6/uL Low [place] WBC (Bld) [#/Vol] 20.8 10*3/uL High 4.8 - 10.8 K/uL [place] CBC With Platelet No Differe ntialon 11-15-2018 Erythrocyte distribution width (RBC) [Ratio] 14.5 % Normal 11.5-14.5 [facility] Comment on above: Performed By: #### P TT #### [facility] [address] [place] [place] [address] Hematocrit (Bld) [Volume fraction] 36.9 % Low 37.0-47.0 [facility] Comment on above: Performed By: #### P TT #### [facility] [address] [place] [place] [address] Hemoglobin (Bld) [Mass/Vol] 11.9 g/dL Low 12.0-16.0 [facility] Comment on above: Performed By: #### P TT #### [facility] [address] [place] [address] MCH (RBC) [Entitic mass] 29.4 pg Normal 27.0-31.3 [facility] Comment on above: Performed By: #### P TT #### [facility] [address] [place] [address] MCHC (RBC) [Mass/Vol] 32.3 % Low 33.0-37.0 [facility] Comment on above: Performed By: #### P TT #### [facility] [address] [place] [address] MCV (RBC) [Entitic vol] 91.1 fL Normal 82.0-100.0 [facility] Comment on above: Performed By: #### P TT #### [facility] [address] [place] [address] Platelets (Bld) [#/Vol] 341 10*3/uL Normal 130-400 [facility] Comment on above: Performed By: #### P TT #### [facility] [address] [place] [address] RBC (Bld) [#/Vol] 4.05 10*6/uL Low 4.20-5.40 [facility] Comment on above: Performed By: #### P TT #### [facility] [address] [place] [address] WBC (Bld) [#/Vol] 19.8 10*3/uL Critically high 4.8-10.8 [facility] Comment on above: Performed By: #### P TT #### [facility] [address] [address] CBC With Platelet and Differ entialon 11-15-2018 Anisocytosis Ql (Bld) 1+ Normal [facility] Comment on above: Performed By: #### P TT #### [facility] [address] [address] Bands 4 % Low 5-11 [facility] Comment on above: Performed By: #### P TT #### [facility] [address] [address] Basophils (Bld) [#/Vol] 0.0 10*3/uL Normal 0.0-0.2 [facility] Comment on above: Performed By: #### P TT #### [facility] [address] [address] Basophils/100 WBC (Bld) 0.6 % Normal [facility] Comment on above: Performed By: #### P TT #### [facility] [address] [address] Eosinophils (Bld) [#/Vol] 0.0 10*3/uL Normal 0.0-0.7 [facility] Comment on above: Performed By: #### P TT #### [facility] [address] [address] Eosinophils/100 WBC (Bld) 0.9 % Normal [facility] Comment on above: Performed By: #### P TT #### [facility] [address] [address] Lymphocytes (Bld) [#/Vol] 3.5 10*3/uL Normal 1.0-4.8 [facility] Comment on above: Performed By: #### P TT #### [facility] [address] [address] Lymphocytes/100 WBC (Bld) 17.0 % Normal [facility] Comment on above: Performed By: #### P TT #### [facility] [address] [address] Microcytic 1+ Normal [facility] Comment on above: Performed By: #### P TT #### [facility] [address] [address] Monocytes (Bld) [#/Vol] 0.0 10*3/uL Low 0.2-0.8 [facility] Comment on above: Performed By: #### P TT #### [facility] [address] [address] Monocytes/100 WBC (Bld) 7.7 % Normal [facility] Comment on above: Performed By: #### P TT #### [facility] [address] [place] [address] Neutrophils (Bld) [#/Vol] 17.3 10*3/uL Critically high 1.4-6.5 [facility] Comment on above: Performed By: #### P TT #### [facility] [address] [place] [address] Neutrophils/100 WBC (Bld) 79.0 % Normal [facility] Comment on above: Performed By: #### P TT #### [facility] [address] [place] [address] Platelet Slide Review Normal Normal [facility] Comment on above: Performed By: #### P TT #### [facility] [address] [place] [address] Erythrocyte distribution width (RBC) [Ratio] 14.6 % Critically high 11.5-14.5 [facility] Comment on above: Performed By: #### P TT #### [facility] [address] [place] [address] Hematocrit (Bld) [Volume fraction] 33.3 % Low 37.0-47.0 [facility] Comment on above: Performed By: #### P TT #### [facility] [address] [place] [address] Hemoglobin (Bld) [Mass/Vol] 10.9 g/dL Low 12.0-16.0 [facility] Comment on above: Performed By: #### P TT #### [facility] [address] [place] [address] MCH (RBC) [Entitic mass] 29.8 pg Normal 27.0-31.3 [facility] Comment on above: Performed By: #### P TT #### [facility] [address] [place] [address] MCHC (RBC) [Mass/Vol] 32.9 % Low 33.0-37.0 [facility] Comment on above: Performed By: #### P TT #### [facility] [address] [place] [address] MCV (RBC) [Entitic vol] 90.7 fL Normal 82.0-100.0 [facility] Comment on above: Performed By: #### P TT #### [facility] [address] [place] [address] Platelets (Bld) [#/Vol] 315 10*3/uL Normal 130-400 [facility] Comment on above: Performed By: #### P TT #### [facility] [address] [place] [address] RBC (Bld) [#/Vol] 3.67 10*6/uL Low 4.20-5.40 [facility] Comment on above: Performed By: #### P TT #### [facility] [address] [address] WBC (Bld) [#/Vol] 20.8 10*3/uL Critically high 4.8-10.8 [facility] Comment on above: Performed By: #### P TT #### [facility] [address] [place] [address] Comprehensive Metabolic Pane l reflex Mgon 11-15-2018 Albumin [Mass/Vol] 3.3 g/dL Low 3.5-4.6 [facility] Comment on above: Performed By: #### P TT #### [facility] [address] [place] [address] ALP [Catalytic activity/Vol] 71 U/L Normal 40-130 [facility] Comment on above: Performed By: #### P TT #### [facility] [address] [place] [address] ALT [Catalytic activity/Vol] 12 U/L Normal 0-33 [facility] Comment on above: Performed By: #### P TT #### [facility] [address] [place] [address] Anion gap [Moles/Vol] 11 mmol/L Normal 9-15 [facility] Comment on above: Performed By: #### P TT #### [facility] [address] [place] [address] AST [Catalytic activity/Vol] 28 U/L Normal 0-35 [facility] Comment on above: Performed By: #### P TT #### [facility] [address] [place] [address] Bilirubin [Mass/Vol] 0.4 mg/dL Normal 0.2-0.7 [facility] Comment on above: Performed By: #### P TT #### [facility] [address] [place] [address] Calcium [Mass/Vol] 9.1 mg/dL Normal 8.5-9.9 [facility] Comment on above: Performed By: #### P TT #### [facility] [address] [address] Chloride [Moles/Vol] 98 mmol/L Normal 95-107 [facility] Comment on above: Performed By: #### P TT #### [facility] [address] [place] [address] CO2 [Moles/Vol] 27 mmol/L Normal 20-31 [facility] Comment on above: Performed By: #### P TT #### [facility] [address] [place] [address] Creatinine [Mass/Vol] 0.59 mg/dL Normal 0.50-0.90 [facility] Comment on above: Performed By: #### P TT #### [facility] [address] [place] [address] GFR/1.73 sq M predicted among blacks MDRD (S/P/Bld) [Vol rate/Area] mL/min/{1.73_m2} Normal >60 [facility] Comment on above: Result Comment: >60 mL/min/1.73m2 EGFR, calc. for ages 18 and older using the MDRD formula (not corrected for weight), is valid for stable renal function. Performed By: #### P TT #### [facility] [address] [place] [address] GFR/1.73 sq M.predicted MDRD (S/P/Bld) [Vol rate/Area] mL/min/{1.73_m2} Normal >60 [facility] Comment on above: Result Comment: >60 mL/min/1.73m2 EGFR, calc. for ages 18 and older using the MDRD formula (not corrected for weight), is valid for stable renal function. Performed By: #### P TT #### [facility] [address] [place] [address] Globulin (S) [Mass/Vol] 3.2 g/dL Normal 2.3-3.5 [facility] Comment on above: Performed By: #### P TT #### [facility] [address] [place] [address] Glucose [Mass/Vol] 123 mg/dL Critically high 70-99 [facility] Comment on above: Performed By: #### P TT #### [facility] [address] [place] [address] Potassium reflex Mg 3.8 mEq/L Normal 3.4-4.9 [facility] Comment on above: Performed By: #### P TT #### [facility] [address] [place] [address] Protein [Mass/Vol] 6.5 g/dL Normal 6.3-8.0 [facility] Comment on above: Performed By: #### P TT #### [facility] [address] [place] [address] Sodium [Moles/Vol] 136 mmol/L Normal 135-144 [facility] Comment on above: Performed By: #### P TT #### [facility] [address] [place] [address] Urea nitrogen [Mass/Vol] 6 mg/dL Low 8-23 [facility] Comment on above: Performed By: #### P TT #### [facility] [address] [place] [address] Culture, Blood 2on 9 Culture, Blood 2 ORDERED BY: ADDY COKER SOURCE: Blood COLLECTED: 11/15/18 16:37 ANTIBIOTICS AT DI.: RECEIVED : 11/15/18 16:42 Culture, Blood 2 FINAL 11/20/18 18:15 No growth after 5 days of incubation. Normal [facility] Comment on above: Performed By: #### C MP #### [facility] [address] [place] [address] Culture, Urineon 11-15-2018 Culture, Urine ORDERED BY: ADDY COKER SOURCE: Urine Clean Catch COLLECTED: 11/15/18 19:05 ANTIBIOTICS AT DI.: RECEIVED : 11/15/18 19:05 Culture, Urine FINAL 11/17/18 07:28 No growth 24 hours Normal [facility] Comment on above: Performed By: #### C MP #### [facility] [address] [place] [address] URINE RT REFLEX TO CULTUREon 11-15-2018 Bilirubin Urine Negative Negative [facility] [place], [place] Blood, Urine TRACE Abnormal Negative [facility] [place] Clarity, UA Clear Clear [place], [place] Color, UA Yellow Straw/Yello w [place], [place] Glucose, Ur Negative Negative mg/dL [place] Interpretation and review of laboratory results Abnormal [place] Ketones Ql (U) Negative Negative mg/dL [place] Leukocyte esterase Test strip Ql (U) Negative Negative [place] Nitrite, Urine Negative Negative [place] pH, UA 7.0 [place] Protein (U) [Mass/Vol] 30 mg/dL Abnormal Negative Me [place], [place] Specific [place], UA 1.014 [place] Urine Reflex to Culture YES M [place], [place] Urobilinogen, Urine 0.2 <2.0 E.U./dL [place] CAROTID ARTERY BILATERALo n 11-15-2018 [...] Mohsen Childers MD 11/16/18 Final result Normal [facility] Urinalysis, reflex to cultur kendall 11-15-2018 Bilirubin Ql (U) Negative Normal Negative [facility] Comment on above: Performed By: #### P TT #### [facility] [address] [address] Clarity (U) Clear Normal Clear [facility] Comment on above: Performed By: #### P TT #### [facility] [address] [place] [address] Color (U) Yellow Normal Straw/Deuel [facility] Comment on above: Performed By: #### P TT #### [facility] [address] [place] [address] Glucose Ql (U) Negative Normal Negative [facility] Comment on above: Performed By: #### P TT #### [facility] [address] [place] [address] Hemoglobin Ql (U) TRACE Abnormal Negative [facility] Comment on above: Performed By: #### P TT #### [facility] [address] [address] Ketones Ql (U) Negative Normal Negative [facility] Comment on above: Performed By: #### P TT #### [facility] [address] [place] [address] Leukocyte esterase Test strip Ql (U) Negative Normal Negative [facility] Comment on above: Performed By: #### P TT #### [facility] [address] [address] Nitrite Ql (U) Negative Normal Negative [facility] Comment on above: Performed By: #### P TT #### [facility] [address] [address] pH (U) 7.0 [pH] Normal 5.0-9.0 [facility] Comment on above: Performed By: #### P TT #### [facility] [address] [address] Protein Ql (U) 30 mg/dL Abnormal Negative [facility] Comment on above: Performed By: #### P TT #### [facility] [address] [place] [address] Specific gravity (U) [Rel density] 1.014 Normal 1.005-1.03 [facility] Comment on above: Performed By: #### P TT #### [facility] [address] [place] [address] Urine Reflexed to Culture YES Normal [facility] Comment on above: Performed By: #### P TT #### [facility] [address] [place] [address] Urobilinogen Qn (U) 0.2 {Juan'U}/dL Normal < 2.0 [facility] Comment on above: Performed By: #### P TT #### [facility] [address] [place] [address] XR CHEST PORTABLEon 11-16-19 19 XR CHEST [...] Pearl Varghese MD 11/16/18 Final result Normal [facility] Basic Metabolic Panel Reflex Mgon 11-14-2018 Anion gap [Moles/Vol] 10 mmol/L Normal 9-15 [facility] Comment on above: Performed By: #### P T #### [facility] [address] [place] [address] Calcium [Mass/Vol] 8.4 mg/dL Low 8.5-9.9 [facility] Comment on above: Performed By: #### P T #### [facility] [address] [place] [address] Chloride [Moles/Vol] 100 mmol/L Normal 95-107 [facility] Comment on above: Performed By: #### P T #### [facility] [address] [place] [address] CO2 [Moles/Vol] 25 mmol/L Normal 20-31 [facility] Comment on above: Performed By: #### P T #### [facility] [address] [place] [address] Creatinine [Mass/Vol] 0.66 mg/dL Normal 0.50-0.90 [facility] Comment on above: Performed By: #### P T #### [facility] [address] [place] [address] GFR/1.73 sq M predicted among blacks MDRD (S/P/Bld) [Vol rate/Area] mL/min/{1.73_m2} Normal >60 [facility] Comment on above: Result Comment: >60 mL/min/1.73m2 EGFR, calc. for ages 18 and older using the MDRD formula (not corrected for weight), is valid for stable renal function. Performed By: #### P T #### [facility] [address] [place] [address] GFR/1.73 sq M.predicted MDRD (S/P/Bld) [Vol rate/Area] mL/min/{1.73_m2} Normal >60 [facility] Comment on above: Result Comment: >60 mL/min/1.73m2 EGFR, calc. for ages 18 and older using the MDRD formula (not corrected for weight), is valid for stable renal function. Performed By: #### P T #### [facility] [address] [place] [address] Glucose [Mass/Vol] 144 mg/dL Critically high 70-99 [facility] Comment on above: Performed By: #### P T #### [facility] [address] [place] [address] Potassium reflex Mg 4.1 mEq/L Normal 3.4-4.9 [facility] Comment on above: Performed By: #### P T #### [facility] [address] [place] [address] Sodium [Moles/Vol] 135 mmol/L Normal 135-144 [facility] Comment on above: Performed By: #### P T #### [facility] [address] [place] [address] Urea nitrogen [Mass/Vol] 6 mg/dL Low 8-23 [facility] Comment on above: Performed By: #### P T #### [facility] [address] [place] [address] CBC With Platelet and Differ entialon 11-14-2018 Basophils (Bld) [#/Vol] 0.1 10*3/uL Normal 0.0-0.2 [facility] Comment on above: Performed By: #### P T #### [facility] [address] [place] [address] Basophils/100 WBC (Bld) 0.5 % Normal [facility] Comment on above: Performed By: #### P T #### [facility] [address] [address] Eosinophils (Bld) [#/Vol] 0.1 10*3/uL Normal 0.0-0.7 [facility] Comment on above: Performed By: #### P T #### [facility] [address] [address] Eosinophils/100 WBC (Bld) 0.8 % Normal [facility] Comment on above: Performed By: #### P T #### [facility] [address] [place] [address] Erythrocyte distribution width (RBC) [Ratio] 14.1 % Normal 11.5-14.5 [facility] Comment on above: Performed By: #### P T #### [facility] [address] [address] Hematocrit (Bld) [Volume fraction] 35.4 % Low 37.0-47.0 [facility] Comment on above: Performed By: #### P T #### [facility] [address] [address] Hemoglobin (Bld) [Mass/Vol] 11.7 g/dL Low 12.0-16.0 [facility] Comment on above: Performed By: #### P T #### [facility] [address] [address] Lymphocytes (Bld) [#/Vol] 2.7 10*3/uL Normal 1.0-4.8 [facility] Comment on above: Performed By: #### P T #### [facility] [address] [address] Lymphocytes/100 WBC (Bld) 15.7 % Normal [facility] Comment on above: Performed By: #### P T #### [facility] [address] [place] [address] MCH (RBC) [Entitic mass] 29.7 pg Normal 27.0-31.3 [facility] Comment on above: Performed By: #### P T #### [facility] [address] [place] [address] MCHC (RBC) [Mass/Vol] 33.1 % Normal 33.0-37.0 [facility] Comment on above: Performed By: #### P T #### [facility] [address] [place] [address] MCV (RBC) [Entitic vol] 89.6 fL Normal 82.0-100.0 [facility] Comment on above: Performed By: #### P T #### [facility] [address] [place] [address] Monocytes (Bld) [#/Vol] 1.4 10*3/uL Critically high 0.2-0. 8 [facility] Comment on above: Performed By: #### P T #### [facility] [address] [place] [address] Monocytes/100 WBC (Bld) 7.9 % Normal [facility] Comment on above: Performed By: #### P T #### [facility] [address] [place] [address] Neutrophils (Bld) [#/Vol] 12.8 10*3/uL Critically high 1.4-6.5 [facility] Comment on above: Performed By: #### P T #### [facility] [address] [place] [address] Neutrophils/100 WBC (Bld) 75.1 % Normal [facility] Comment on above: Performed By: #### P T #### [facility] [address] [place] [address] Platelets (Bld) [#/Vol] 345 10*3/uL Normal 130-400 [facility] Comment on above: Performed By: #### P T #### [facility] [address] [place] [address] RBC (Bld) [#/Vol] 3.95 10*6/uL Low 4.20-5.40 [facility] Comment on above: Performed By: #### P T #### [facility] [address] [place] [address] WBC (Bld) [#/Vol] 17.0 10*3/uL Critically high 4.8-10.8 [facility] Comment on above: Performed By: #### P T #### [facility] [address] [place] [address] POCT Glucoseon 11-14-2018 Glucose [Mass/Vol] 116 mg/dL Critically high 60-115 [facility] Comment on above: Performed By: #### P T #### [facility] [address] [place] [address] POC Performed on ACCU-CHEK Normal [facility] Comment on above: Performed By: #### P T #### [facility] [address] [place] [address] XR LUMBAR SPINE (2-3 VIEWS)o n 11-14-2018 [...] Mohsen Childers MD 11/14/18 Final result Normal [facility] Basic Metabolic Panel Reflex Mgon 11-13-2018 Anion gap [Moles/Vol] 13 mmol/L Normal 9-15 [facility] Comment on above: Performed By: #### P T #### [facility] [address] [place] [address] Calcium [Mass/Vol] 9.0 mg/dL Normal 8.5-9.9 [facility] Comment on above: Performed By: #### P T #### [facility] [address] [place] [address] Chloride [Moles/Vol] 101 mmol/L Normal 95-107 [facility] Comment on above: Performed By: #### P T #### [facility] [address] [place] [address] CO2 [Moles/Vol] 24 mmol/L Normal 20-31 [facility] Comment on above: Performed By: #### P T #### [facility] [address] [place] [address] Creatinine [Mass/Vol] 0.62 mg/dL Normal 0.50-0.90 [facility] Comment on above: Performed By: #### P T #### [facility] [address] [place] [address] GFR/1.73 sq M predicted among blacks MDRD (S/P/Bld) [Vol rate/Area] mL/min/{1.73_m2} Normal >60 [facility] Comment on above: Result Comment: >60 mL/min/1.73m2 EGFR, calc. for ages 18 and older using the MDRD formula (not corrected for weight), is valid for stable renal function. Performed By: #### P T #### [facility] [address] [place] [address] GFR/1.73 sq M.predicted MDRD (S/P/Bld) [Vol rate/Area] mL/min/{1.73_m2} Normal >60 [facility] Comment on above: Result Comment: >60 mL/min/1.73m2 EGFR, calc. for ages 18 and older using the MDRD formula (not corrected for weight), is valid for stable renal function. Performed By: #### P T #### [facility] [address] [place] [address] Glucose [Mass/Vol] 136 mg/dL Critically high 70-99 [facility] Comment on above: Performed By: #### P T #### [facility] [address] [address] Potassium reflex Mg 3.6 mEq/L Normal 3.4-4.9 [facility] Comment on above: Performed By: #### P T #### [facility] [address] [address] Sodium [Moles/Vol] 138 mmol/L Normal 135-144 [facility] Comment on above: Performed By: #### P T #### [facility] [address] [place] [address] Urea nitrogen [Mass/Vol] 7 mg/dL Low 8-23 [facility] Comment on above: Performed By: #### P T #### [facility] [address] [address] CBC With Platelet No Differe ntialon 11-13-2018 Erythrocyte distribution width (RBC) [Ratio] 14.2 % Normal 11.5-14.5 [facility] Comment on above: Performed By: #### P T #### [facility] [address] [address] Hematocrit (Bld) [Volume fraction] 40.3 % Normal 37.0-47.0 [facility] Comment on above: Performed By: #### P T #### [facility] [address] [address] Hemoglobin (Bld) [Mass/Vol] 13.1 g/dL Normal 12.0-16.0 [facility] Comment on above: Performed By: #### P T #### [facility] [address] [address] MCH (RBC) [Entitic mass] 29.1 pg Normal 27.0-31.3 [facility] Comment on above: Performed By: #### P T #### [facility] [address] [place] [address] MCHC (RBC) [Mass/Vol] 32.4 % Low 33.0-37.0 [facility] Comment on above: Performed By: #### P T #### [facility] [address] [place] [address] MCV (RBC) [Entitic vol] 89.9 fL Normal 82.0-100.0 [facility] Comment on above: Performed By: #### P T #### [facility] [address] [place] [address] Platelets (Bld) [#/Vol] 394 10*3/uL Normal 130-400 [facility] Comment on above: Performed By: #### P T #### [facility] [address] [place] [address] RBC (Bld) [#/Vol] 4.48 10*6/uL Normal 4.20-5.40 [facility] Comment on above: Performed By: #### P T #### [facility] [address] [place] [address] WBC (Bld) [#/Vol] 11.8 10*3/uL Critically high 4.8-10.8 [facility] Comment on above: Performed By: #### P T #### [facility] [address] [place] [address] Culture, MRSA Screenon 11-13 Culture, MRSA Screen ORDERED BY: BRENNAN HERRON SOURCE: Nares COLLECTED: 11/13/18 09:29 ANTIBIOTICS AT DI.: RECEIVED : 11/13/18 09:29 Culture, MRSA Screen FINAL 11/14/18 08:02 No MRSA isolated Normal [facility] Comment on above: Performed By: #### P T #### [facility] [address] [place] [address] FLUORO FOR SURGICAL PROCEDUR ESon 11-13-2018 FLUORO [...] Mohsen Childers MD 11/13/18 Final result Normal [facility] Surgical Specimenon 11-14-19 19 Surgical Specimen [facility] [address] [place] [address] FINAL SURGICAL PATHOLOGY REPORT Patient Name: HIRAM MADRID Accession No: [id number] Age Sex: 1935 Location: [facility] [id number] Account No: [id number] Collected: 11/13/2018 Med Rec No: [id number] Received: 11/14/2018 Attend Phys: LENNY CORRAL Completed: [...] two cassettes after brief decalcification. UVALDO/NIKKY CPT: 60084 X1 [id number] X1 STANLEY GRAFF M.D. 11/15/2018 Electronically signed out by Page 1 of 1 [facility] Comment on above: Performed By: #### P TT #### [place] [id number] Type and Screen Capture 3 sc rn cellon 11-13-2018 Type and Screen Capture 3 scrn cell PATIENT: MERCY GANDHI LOC: TATIANNA SUAREZ NON BILL# : [id number] : 1935 SEX: F ORDERED BY: HERRONHarika AMIN ORDERED : 11/13/2018 08:10 COLLECTED: 11/13/2018 09:24 ORDER : [id number] RECEIVED : 11/13/2018 09:24 TEST NAME RESULT UNITS RANGES ABN FL ST ABORH Capture A POS F Antibody 3 Cell Scrn Captu NEG F Normal [facility] Comment on above: Performed By: #### T S3C #### [facility] [address] [place] [id number] XR SPINE ENTIRE (2-3 VIEWS)o n 11-13-2018 [...] Mohsen Childers MD 11/13/18 Final result Normal [facility] MRI LUMBAR SPINE W WO BRIGITTE Mayer 11-05-2018 EXAMINATION: MRI LUMBAR SPINE W WO [...] SIGNS OF UNDERLYING PATHOLOGY OR RECENT INJURY. [facility] [place], [place] Joseph, [facility] Incoming Radiant Results From [employer]/Pacs - 11/05/2018 3:07 PM EDT EXAMINATION: MRI [...] SIGNS OF UNDERLYING PATHOLOGY OR RECENT INJURY. [facility], [place] MRI LUMBAR SPINE W WO CONTRAST EXAMINATION: [...] Pearl Varghese MD 11/05/18 Final result Normal [facility] Otheron 11-05-2018 Joseph, [facility] Incoming Radiant Results From copygram/Copious - 11/05/2018 1:21 PM EDT EXAMINATION: XR [...] AND POSTOPERATIVE FINDINGS, WITHOUT ACUTE SUPERIMPOSED ABNORMALITY. [facility] [place], [place] EXAMINATION: XR LUMB AR SPINE (MIN [...] AND POSTOPERATIVE FINDINGS, WITHOUT ACUTE SUPERIMPOSED ABNORMALITY. [place], [place] XR CHEST (2 VW)on 11-05-2018 XR [...] Pearl Varghese MD 11/05/18 Final result Normal [facility] XR LUMBAR SPINE (MIN 4 VIEWS [...] Pearl Varghese MD 11/05/18 Final result Normal [facility] APTTon 11-04-2018 aPTT Coag (Bld) [Time] 27.9 s [place], [place] Comment on above: Effective 09/06/2018: Please note methodology and/or reference ranges have changed. aPTT - Heparin Therapeutic Range: 74.0 - 106 seconds C-Reactive Proteinon 019 CRP [Mass/Vol] 1.3 mg/L Normal 0.0-5.0 [facility] Comment on above: Performed By: #### C RP #### [facility] [address] [facility] [address] CRP [Mass/Vol] 1.3 mg/L 0 - 5 mg/L [place], [place] CBC Auto Differentialon 10-21 Basophils (Bld) [#/Vol] 0.1 10*3/uL 0 - 0.2 K/uL [place] Basophils/100 WBC (Bld) 1.1 % [place], [place] Eosinophils (Bld) [#/Vol] 0.2 10*3/uL 0 - 0.7 K/uL [place] Eosinophils/100 WBC (Bld) 1.3 % [place] Erythrocyte distribution width (RBC) [Ratio] 13.9 % 11.5 - 14.5 % [place] Hematocrit (Bld) [Volume fraction] 41.3 % 37 - 47 % [place] Hemoglobin (Bld) [Mass/Vol] 14.3 g/dL 12 - 16 g/dL [place] Interpretation and review of laboratory results Abnormal [place] Lymphocytes (Bld) [#/Vol] 3.5 10*3/uL 1 - 4.8 K/uL [place] Lymphocytes/100 WBC (Bld) 28.2 % [place] MCH (RBC) [Entitic mass] 30.5 pg 27 - 31.3 pg [place] MCHC (RBC) [Mass/Vol] 34.6 % 33 - 37 % [place] MCV (RBC) [Entitic vol] 88.0 fL 82 - 100 fL [place] Monocytes (Bld) [#/Vol] 0.8 10*3/uL 0.2 - 0.8 K/uL [place] Monocytes/100 WBC (Bld) 6.8 % [place] Neutrophils Absolute 7.7 K/uL High 1.4 - 6 .5 K/uL [place] Neutrophils/100 WBC (Bld) 62.6 % [place] Platelets (Bld) [#/Vol] 435 10*3/uL High 130 - 400 K/uL [place] RBC (Bld) [#/Vol] 4.69 10*6/uL [place] WBC (Bld) [#/Vol] 12.4 10*3/uL High 4.8 - 10.8 K/uL [place] CBC With Platelet and Differ entialon 11-04-2018 Basophils (Bld) [#/Vol] 0.1 10*3/uL Normal 0.0-0.2 [facility] Comment on above: Performed By: #### C BCWD #### [facility] [address] [place] [address] Basophils/100 WBC (Bld) 1.1 % Normal [facility] Comment on above: Performed By: #### C BCWD #### [facility] [address] [place] [address] Eosinophils (Bld) [#/Vol] 0.2 10*3/uL Normal 0.0-0.7 [facility] Comment on above: Performed By: #### C BCWD #### [facility] [address] [place] [address] Eosinophils/100 WBC (Bld) 1.3 % Normal [facility] Comment on above: Performed By: #### C BCWD #### [facility] [address] [place] [address] Erythrocyte distribution width (RBC) [Ratio] 13.9 % Normal 11.5-14.5 [facility] Comment on above: Performed By: #### C BCWD #### [facility] [address] [place] [address] Hematocrit (Bld) [Volume fraction] 41.3 % Normal 37.0-47.0 [facility] Comment on above: Performed By: #### C BCWD #### [facility] [address] [place] [address] Hemoglobin (Bld) [Mass/Vol] 14.3 g/dL Normal 12.0-16.0 [facility] Comment on above: Performed By: #### C BCWD #### [facility] [address] [place] [place] [address] Lymphocytes (Bld) [#/Vol] 3.5 10*3/uL Normal 1.0-4.8 [facility] Comment on above: Performed By: #### C BCWD #### [facility] [address] [place] [address] Lymphocytes/100 WBC (Bld) 28.2 % Normal [facility] Comment on above: Performed By: #### C BCWD #### [facility] [address] [place] [address] MCH (RBC) [Entitic mass] 30.5 pg Normal 27.0-31.3 [facility] Comment on above: Performed By: #### C BCWD #### [facility] [address] [place] [address] MCHC (RBC) [Mass/Vol] 34.6 % Normal 33.0-37.0 [facility] Comment on above: Performed By: #### C BCWD #### [facility] [address] [place] [place] [address] MCV (RBC) [Entitic vol] 88.0 fL Normal 82.0-100.0 [facility] Comment on above: Performed By: #### C BCWD #### [facility] [address] [place] [place] [address] Monocytes (Bld) [#/Vol] 0.8 10*3/uL Normal 0.2-0.8 [facility] Comment on above: Performed By: #### C BCWD #### [facility] [address] [place] [place] [address] Monocytes/100 WBC (Bld) 6.8 % Normal [facility] Comment on above: Performed By: #### C BCWD #### [facility] [address] [place] [address] Neutrophils (Bld) [#/Vol] 7.7 10*3/uL Critically high 1.4-6.5 [facility] Comment on above: Performed By: #### C BCWD #### [facility] [address] [place] [address] Neutrophils/100 WBC (Bld) 62.6 % Normal [facility] Comment on above: Performed By: #### C BCWD #### [facility] [address] [place] [address] Platelets (Bld) [#/Vol] 435 10*3/uL Critically high 130-40 0 [facility] Comment on above: Performed By: #### C BCWD #### [facility] [address] [place] [address] RBC (Bld) [#/Vol] 4.69 10*6/uL Normal 4.20-5.40 [facility] Comment on above: Performed By: #### C BCWD #### [facility] [address] [place] [address] WBC (Bld) [#/Vol] 12.4 10*3/uL Critically high 4.8-10.8 [facility] Comment on above: Performed By: #### C BCWD #### [facility] [address] [place] [address] Comprehensive Metabolic Pane bebeto 11-04-2018 Anion gap [Moles/Vol] 14 mmol/L Normal 9-15 [facility] Comment on above: Order Comment: CALL [facility] tel. [phone], Potassium results called to and read back by onofre Millan RN, 11/04/2018 16:24, by [employer] Performed By: #### C MP #### [facility] [address] [place] [address] Bilirubin [Mass/Vol] 0.4 mg/dL Normal 0.2-0.7 [facility] Comment on above: Order Comment: CALL [facility] tel. [phone], Potassium results called to and read back by onofre Millan RN, 11/04/2018 16:24, by WEB[facility] Performed By: #### C MP #### [facility] [address] [place] [address] GFR/1.73 sq M predicted among blacks MDRD (S/P/Bld) [Vol rate/Area] mL/min/{1.73_m2} Normal >60 [facility] Comment on above: Order Comment: CALL [facility] tel. [phone], Potassium results called to and read back by onofre Millan RN, 11/04/2018 16:24, by [employer] Result Comment: >60 mL/min/1.73m2 EGFR, calc. for ages 18 and older using the MDRD formula (not corrected for weight), is valid for stable renal function. Performed By: #### C MP #### [facility] [address] [place] [address] GFR/1.73 sq M.predicted MDRD (S/P/Bld) [Vol rate/Area] mL/min/{1.73_m2} Normal >60 [facility] Comment on above: Order Comment: CALL [facility] tel. [phone], Potassium results called to and read back by onofre Millna RN, 11/04/2018 16:24, by [employer] Result Comment: >60 mL/min/1.73m2 EGFR, calc. for ages 18 and older using the MDRD formula (not corrected for weight), is valid for stable renal function. Performed By: #### C MP #### [facility] [address] [place] [address] Albumin [Mass/Vol] 4.5 g/dL Normal 3.5-4.6 [facility], [place] Comment on above: Order Comment: CALL [facility] tel. [phone], Potassium results called to and read back by onofre Millan RN, 11/04/2018 16:24, by WEBAM Performed By: #### C MP #### [facility] [address] [place] [address] ALP [Catalytic activity/Vol] 76 U/L Normal 40-130 [facility], [place] Comment on above: Order Comment: CALL [facility] tel. [phone], Potassium results called to and read back by onofre Millan RN, 11/04/2018 16:24, by WEBAM Performed By: #### C MP #### [facility] [address] [place] [address] ALT [Catalytic activity/Vol] 15 U/L Normal 0-33 [facility] Comment on above: Order Comment: CALL [facility] tel. [phone], Potassium results called to and read back by onofre Millan RN, 11/04/2018 16:24, by WEBAM Performed By: #### C MP #### [facility] [address] [place] [address] AST [Catalytic activity/Vol] 20 U/L Normal 0-35 [place] Comment on above: Order Comment: CALL [facility] tel. [phone], Potassium results called to and read back by onofre Millan RN, 11/04/2018 16:24, by WEBAM Performed By: #### C MP #### [facility] [address] [place] [address] Calcium [Mass/Vol] 9.9 mg/dL Normal 8.5-9.9 [place] Comment on above: Order Comment: CALL [facility] tel. [phone], Potassium results called to and read back by onofre Millan RN, 11/04/2018 16:24, by [employer]BAM Performed By: #### C MP #### [facility] [address] [place] [address] Chloride [Moles/Vol] 96 mmol/L Normal 95-107 [place] Comment on above: Order Comment: CALL [facility] tel. [phone], Potassium results called to and read back by onofre Millan RN, 11/04/2018 16:24, by WEBAM Performed By: #### C MP #### [facility] [address] [place] [address] CO2 [Moles/Vol] 24 mmol/L Normal 20-31 [place] Comment on above: Order Comment: CALL [facility] tel. [phone], Potassium results called to and read back by onofre Millan RN, 11/04/2018 16:24, by WEBAM Performed By: #### C MP #### [facility] [address] [address] Creatinine [Mass/Vol] 0.67 mg/dL Normal 0.50-0.90 [place], [place] Comment on above: Order Comment: CALL [facility] tel. [phone], Potassium results called to and read back by onofre Millan RN, 11/04/2018 16:24, by WEBAM Performed By: #### C MP #### [facility] [address] [facility] [place] [address] Globulin (S) [Mass/Vol] 2.8 g/dL Normal 2.3-3.5 [place] Comment on above: Order Comment: CALL [facility] tel. [phone], Potassium results called to and read back by onofre Millan RN, 11/04/2018 16:24, by WEBAM Performed By: #### C MP #### [facility] [address] [address] Glucose [Mass/Vol] 109 mg/dL Critically high 70-99 M [place] Comment on above: Order Comment: CALL [facility] tel. [phone], Potassium results called to and read back by onofre Millan RN, 11/04/2018 16:24, by WEBAM Performed By: #### C MP #### [facility] [address] [place] [address] Potassium [Moles/Vol] 3.0 mmol/L Critically low 3.4-4.9 [place] Comment on above: Order Comment: CALL [facility] tel. [phone], Potassium results called to and read back by onofre Millan RN, 11/04/2018 16:24, by WEBAM Performed By: #### C MP #### [facility] [address] [place] [address] Protein [Mass/Vol] 7.3 g/dL Normal 6.3-8.0 [place] Comment on above: Order Comment: CALL [facility] tel. [phone], Potassium results called to and read back by onofre Millan RN, 11/04/2018 16:24, by WEBAM Performed By: #### C MP #### [facility] [address] [place] [address] Sodium [Moles/Vol] 134 mmol/L Low 135-144 [place] Comment on above: Order Comment: CALL [facility] tel. [phone], Potassium results called to and read back by onofre Millan RN, 11/04/2018 16:24, by WEBAM Performed By: #### C MP #### [facility] [address] [place] [address] Urea nitrogen [Mass/Vol] 8 mg/dL Normal 8-23 [place] Comment on above: Order Comment: CALL [facility] tel. [phone], Potassium results called to and read back by onofre Millan RN, 11/04/2018 16:24, by WEBAM Performed By: #### C MP #### [facility] [address] [place] [address] Anion gap [Moles/Vol] 14 mmol/L [place] Bilirubin Ql (U) 0.4 mg/dL 0.2 - 0.7 mg/dL [place] GFR >60.0 >60 [place] Comment on above: >60 mL/min/1.73m2 EG FR, calc. for ages 18 and older using the MDRD formula (not corrected for weight), is valid for stable renal function. GFR Non- >60.0 >60 [place] Comment on above: >60 mL/min/1.73m2 EG FR, calc. for ages 18 and older using the MDRD formula (not corrected for weight), is valid for stable renal function. Interpretation and review of laboratory results Abnormal [place] Potassium [Moles/Vol] [phone], Potassium results called to and read back by onofre Millan RN, 11/04/2018 16:24, by [place] [place] Partial Thromboplastin Timeo n 11-04-2018 aPTT Coag (Bld) [Time] 27.9 s Normal 24.4-36.8 [facility] Comment on above: Result Comment: Effe ctive 09/06/2018: Please note methodology and/or reference ranges have changed. aPTT - Heparin Therapeutic Range: 74.0 - 106 seconds Performed By: #### P TT #### [facility] [address] [place] [address] Prothrombin Timeon 9 INR Coag (PPP) [Relative time] 0.9 {INR} Normal [facility] Comment on above: Result Comment: Warf camden Therapy INR Therapeutic: 2.0-3.0 With Mechanical Valve: >2.5 Low-intensity Therapeutic Range: 1.5-2.0 Mod-intensity Therapeutic Range: 2.0-3.0 High-intensity Therapeutic Range: 2.5-3.5 HIgh-intensity Therapeutic Range: 3.0-4.0 Common Critical/Alarm Value: 5.0 Common Upper Limit Reported: 10.0 Effective 08/30/2018: Please note methodology and/or reference ranges have changed. Performed By: #### P T #### [facility] [address] [place] [address] PT Coag (PPP) [Time] 12.1 s Low 12.3-14.9 [facility] Comment on above: Result Comment: Effe ctive 08/30/18 Please note methodology and/or reference ranges have changed. Performed By: #### P T #### [facility] [address] [place] [address] Protime-INRon 11-04-2018 INR Coag (PPP) [Relative time] 0.9 {INR} [place] Comment on above: Warfarin Therapy INR Therapeutic: 2.0-3.0 With Mechanical Valve: >2.5 Low-intensity Therapeutic Range: 1.5-2.0 Mod-intensity Therapeutic Range: 2.0-3.0 High-intensity Therapeutic Range: 2.5-3.5 HIgh-intensity Therapeutic Range: 3.0-4.0 Common Critical/Alarm Value: 5.0 Common Upper Limit Reported: 10.0 Effective 08/30/2018: Please note methodology and/or reference ranges have changed. Interpretation and review of laboratory results Abnormal [place] PT Coag (PPP) [Time] 12.1 s [place] Comment on above: Effective 08/30/18 Please note methodology and/or reference ranges have changed. Sedimentation Rateon 019 Sedimentation Rate 12 mm Normal 0-30 [facility] Comment on above: Performed By: #### E SR #### [facility] [address] [place] [address] Sed Rate 12 mm 0 - 30 mm [facility], [place] Vital Signs Date Time Vital Sign Value Performing Clinician Ivonne ledesma 04-06-2023 11:51-0500 Body temperature 97.9 [degF] MD Addy Daniels Work Phone: [facility] 04-06-2023 11:51-0500 Diastolic blood pressure 76 mm[Hg] MD Addy Daniels Work Phone: [facility] 04-06-2023 11:51-0500 Heart rate 84 /min MD Addy Daniels Work Phone: [facility] 04-06-2023 11:51-0500 Respiratory rate 18 /min MD Addy Daniels Work Phone: [facility] 04-06-2023 11:51-0500 SaO2% (BldA) [Mass fraction] 97 % MD Addy Daniels Work Phone: [facility] 04-06-2023 11:51-0500 Systolic blood pressure 146 mm[Hg] MD Addy Daniels Work Phone: [facility] 04-06-2023 06:00-0500 Body weight 58.6 kg MD Addy Daniels Work Phone: [facility] 04-04-2023 13:15-0500 Body height 154.94 cm MD Addy Daniels Work Phone: [facility] 12-22-2022 11:40-0400 Blood Pressure Location MIKAYLA WEISS [facility] 12-22-2022 11:40-0400 Diastolic blood pressure 84 mm[Hg] MIKAYLA WEISS [facility] 12-22-2022 11:40-0400 Systolic blood pressure 124 mm[Hg] MIKAYLA WEISS [facility] 08-06-2022 00:10-0400 Body temperature 97.3 [degF] MD Addy Daniels Work Phone: [facility] 08-06-2022 00:10-0400 Diastolic blood pressure 74 mm[Hg] MD Addy Daniels Work Phone: [facility] 08-06-2022 00:10-0400 Heart rate 80 /min MD Addy Daniels Work Phone: [facility] 08-06-2022 00:10-0400 Respiratory rate 18 /min MD Addy Daniels Work Phone: [facility] 08-06-2022 00:10-0400 SaO2% (BldA) [Mass fraction] 96 % MD Addy Daniels Work Phone: [facility] 08-06-2022 00:10-0400 Systolic blood pressure 177 mm[Hg] MD Addy Daniels Work Phone: [facility] 08-05-2022 19:51-0400 Body height 154.94 cm MD Addy Daniels Work Phone: [facility] 08-05-2022 19:51-0400 Body weight 67.6 kg MD Addy Daniels Work Phone: [facility] 11-20-2018 07:02-0400 Body Temperature 97 [degF] [facility] [place] 11-20-2018 07:02-0400 BP Diastolic 61 mm[Hg] Mary ShahtronNate [facility], [place] 11-20-2018 07:02-0400 BP Systolic 153 mm[Hg] [facility] [place] 11-20-2018 07:02-0400 Pulse (Heart Rate) 75 /min [facility] [place] 11-20-2018 07:02-0400 Pulse Oximetry 97 % [facility] [place] 11-20-2018 07:02-0400 Respiratory Rate 17 /min Mary Vega [facility], [place] 11-17-2018 05:54-0400 BMI (Body Mass Index) 27.62 kg/m2 [facility] [place] 11-17-2018 05:54-0400 Body weight 66.3 kg [facility] [place] 11-15-2018 15:58-0400 Height 154.9 cm [facility] [place] 11-05-2018 07:30-0400 BP Diastolic 57 mm[Hg] [facility] , [place] 11-05-2018 07:30-0400 BP Systolic 135 mm[Hg] [facility] , [place] 11-05-2018 07:30-0400 Pulse (Heart Rate) 70 /min [place] 11-05-2018 07:30-0400 Pulse Oximetry 97 % [facility] , [place] 11-04-2018 20:06-0400 Body Temperature 98.4 [degF] [facility] 11-04-2018 20:06-0400 Respiratory Rate 16 /min [facility] 11-04-2018 14:56-0400 BMI (Body Mass Index) 27.4 kg/m2 [facility] 11-04-2018 14:56-0400 Body weight 65.77 kg [facility] , [place] 11-04-2018 14:56-0400 Height 154.9 cm [facility] , [place] Encounters Encounter Date Encounter Type Care Provider Facility Start: 06-29-2023 ambulatory MIKAYLA Mora ty:ERIN Hoang Start: 04-03-2023 Non-patient / Non-visit MD Aime Daniels Work Phone: [facility] Work Phone: Start: 04-02-2023 End: 04-06-2023 [facility] Start: 04-02-2023 Non-patient / Non-visit MD Aime Daniels Work Phone: [facility] Work Phone: Start: 04-02-2023 End: 04-06-2023 Evaluation and management of inpatient MD Addy Daniels Work Phone: [facility] Work Phone: Start: 01-11-2023 End: 01-11-[address] [facility] Start: 12-22-2022 End: 12-23-2022 ambulatory MIKAYLA WEISS Facility:[facility] Start: 12-22-2022 End: 12-22-2022 Patient encounter procedure MIKAYLA WEISS [facility] Start: 10-14-2022 End: 10-14-[address] [facility] Start: 09-06-2022 End: 09-07-2022 ambulatory Raymond HARRISON Facility:[facility]IN [facility] Start: 08-11-2022 End: 08-12-2022 ambulatory Raymond HARRISON Facility:CD:[id number] Start: 08-10-2022 End: 08-11-2022 ambulatory Raymond HARRISON Facility:[facility] Start: 08-09-2022 End: 08-09-2022 ambulatory Raymond [facility] Facility:[facility] Start: 08-09-2022 ambulatory MIKAYLA WEISS Facility :[facility] Start: 08-05-2022 End: 08-06-2022 Emergency department patient visit Addy Daniels Facility:[facility] Start: 08-05-2022 End: 08-06-2022 Emergency department patient visit MD Addy Daniels Work Phone: [facility] Work Phone: Start: 06-13-2022 End: 06-14-[address] ADDY DANIELS . Facility:[facility] Start: 05-19-[address] ADDY DANIELS . Facili ty:[facility] Start: 04-18-2022 End: 04-19-[address] VALERIE DARDEN Facility:[facility] Start: 04-04-2022 End: 04-04-[address] [facility] Start: 01-30-[address] ADDY DANIELS . Facili ty:[facility] Start: 01-04-2022 End: 01-05-[address] ADDY DANIELS . Facility:[facility] Start: 12-26-2021 End: 12-29-2021 Evaluation and management of inpatient DR ADDY DANIELS . Facility:[facility] Start: 12-02-2021 End: 01-04-2022 Pre-admission assessment Alie Santos [facility] Start: 11-30-2021 End: 12-01-[address] JESUS BRUNO Facility:[facility] Start: 11-09-2021 End: 11-10-[address] CALISTA ACEVES Facility:[facility] Start: 08-06-2021 End: 08-07-[address] VALERIE DARDEN Facility:[facility] Start: 07-28-2021 End: 07-29-[address] CALISTA ACEVES Facility:[facility] Start: 06-22-2021 End: 06-22-2021 Patient encounter procedure VALERIE DARDEN [facility] Start: 11-15-2018 End: 11-20-2018 Evaluation and management of inpatient MARY VEGA [facility] Start: 11-15-2018 End: 11-20-2018 Evaluation and management of inpatient Mary Vega Work Phone: [facility] Comment on above: Spinal stenosis of l umbosacral region (Primary Dx); Impaired mobility; Vasovagal syncope Start: 11-13-2018 End: 11-15-2018 Evaluation and management of inpatient LENNY CORRAL [facility] Start: 11-13-2018 End: 11-15-2018 Patient encounter procedure LENNY CORRAL [facility] Start: 11-04-2018 End: 11-05-2018 Patient encounter procedure CALISTA KETAN [facility] Start: 11-04-2018 End: 11-05-2018 Emergency department patient visit Lenny Corral Work Phone: [facility] Comment on above: Lumbar radiculopathy (Primary Dx); Intractable low back pain Start: 04-19-2018 End: 04-20-2018 Patient encounter procedure DEFAULT PHYSICIAN Facility:[facility] Procedures Date Procedure Procedure [...] CALISTA ACEVES Start: 11-19-2018 INCENTIVE SPIROMETRY RT ACLISTA ACEVES Start: 11-19-2018 INCENTIVE SPIROMETRY RT CALISTA [...] CALISTA ACEVES Start: 11-18-2018 CHANGE DRESSING CALISTA ACEVES Start: 11-18-2018 NURSING COMMUNICATION M DORA ACEVES Start: 11-18-2018 INCENTIVE SPIROMETRY RT CALISTA ACEVES Start: 11-18-2018 Ecg routine ecg w/le ast 12 lds w/i&r CALISTA ACEVES Start: 11-18-2018 INCENTIVE SPIROMETRY RT CALISTA ACEVES Start: 11-18-2018 Ecg routine ecg w/le ast 12 lds w/i&r Steve I Cho Work Phone: Start: 11-18-2018 Assay of magnesium CHRIS ACEVES Start: 11-18-2018 Assay of thyroid sti mulating hormone tsh CALISTA KETAN Start: 11-18-2018 Basic metabolic pane l calcium total CALISTA KETAN Start: 11-18-2018 INCENTIVE SPIROMETRY RT [...] xtr veins c omplete bilateral study Mary ShahThalia Work Phone: Start: 11-16-2018 INCENTIVE SPIROMETRY RT CALISTA ACEVES Start: 11-16-2018 INCENTIVE SPIROMETRY RT CALISTA ACEVES Start: 11-16-2018 INCENTIVE SPIROMETRY RT CALISTA ACEVES Start: 11-16-2018 Echo tthrc r-t 2d w/ wom-mode compl spec&colr d CALISTA KETAN Start: 11-16-2018 INCENTIVE SPIROMETRY RT CALISTA ACEVES Start: 11-16-2018 IP CONSULT TO INFECT IOUS DISEASES CALISTA KETAN Start: 11-16-2018 Echo tthrc r-t 2d w/ wom-mode compl spec&colr d Dulce J Work Phone: Start: 11-16-2018 INCENTIVE SPIROMETRY RT CALISTA ACEVES Start: 11-16-2018 INCENTIVE SPIROMETRY RT CALISTA ACEVES Start: 11-16-2018 NURSING COMMUNICATION M DORA ACEVES Start: 11-16-2018 INCENTIVE SPIROMETRY RT CALISTA KETAN Start: 11-16-2018 INITIATE OXYGEN THER APY PROTOCOL CALISTA KETAN Start: 11-16-2018 INCENTIVE SPIROMETRY RT CALISTA KETAN Start: 11-16-2018 Blood count complete auto&auto difrntl wbc CAILSTA KETAN Start: 11-16-2018 IP CONSULT TO CARDIOLOGY CALISTAPRESLEY ACEVES Start: 11-16-2018 Blood count complete auto&auto difrntl wbc Mary ShahThalia Work Phone: Start: 11-16-2018 DAILY WEIGHTS CALISTA LAMBERT CAREY Start: 11-16-2018 INCENTIVE SPIROMETRY RT CALISTA KETAN Start: 11-15-2018 IP CONSULT TO CASE MANAGEMENT CALISTA ACEVES Start: 11-15-2018 IP CONSULT TO RECREA TION THERAPY CALISTA ACEVES Start: 11-15-2018 FULL CODE CALISTA RIVERA UN Start: 11-15-2018 GRADUAL COMPRESSION STOCKINGS (SOFIYA) CALISTA [...] ICAL VTE PROPHYLAXIS CALISTA ACEVES Start: 11-15-2018 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 AND TREAT CHRIS ACEVES Start: 11-15-2018 TOBACCO CESSATION EDUCATION CALISTA ACEVES Start: 11-15-2018 VITAL SIGNS CALISTA RIVERA MICHELE Start: 11-15-2018 Radiologic exam ches t single view CALISTA ACEVES Start: 11-15-2018 INCENTIVE SPIROMETRY RT CALISTA KETAN Start: 11-15-2018 Radiologic exam ches t single view Mary Sangeeta Work Phone: Start: 11-15-2018 Duplex scan extracra nial art compl bi study CALISTA ACEVES Start: 11-15-2018 Culture bacterial quanttative colony count urine CALISTA ACEVES Start: 11-15-2018 Urinalysis microscopic only CALISTA ACEVES Start: 11-15-2018 Urnls dip stick/tabl et rgnt auto w/o microscopy CALITSA ACEVES Start: 11-15-2018 INCENTIVE SPIROMETRY RT CALISTA ACEVES Start: 11-15-2018 Duplex scan extracra nial art compl bi study Dulce J Holiday Work Phone: Start: 11-15-2018 Culture bacterial quanttative colony count urine Mary CokerChelsySantana Work Phone: Start: 11-15-2018 Urinalysis microscopic only Mary CokerYuko Work Phone: Start: 11-15-2018 Blood count complete auto&auto difrntl wbc CALISTA ACEVES Start: 11-15-2018 Culture bacterial bl ood aerobic w/id isolates CALISTA ACEVES Start: 11-15-2018 Microscopic examinat ion of blood, culture CALISTA ACEVES Comment on above: Performed By: #### P TT #### [facility] [address] [place] [id number] Start: 11-15-2018 Urnls dip stick/tabl et rgnt [...] Blood count complete auto&auto difrntl wbc Mary CokerYuko Work Phone: Start: 11-15-2018 Culture bacterial bl ood aerobic w/id isolates Mary Sangeeta Work Phone: Start: 11-15-2018 INCENTIVE SPIROMETRY RT CALISTA ACEVES Start: 11-15-2018 INCENTIVE SPIROMETRY RT CALISTA ACEVES Start: 11-15-2018 PULSE OXIMETRY, CONTINUOUS CALISTA ACEVES Start: 11-15-2018 DISCHARGE PATIENT MARQUEZ ACEVES Start: 11-15-2018 Blood count complete auto&auto [...] RT CALISTA ACEVES Start: 11-14-2018 INITIATE OXYGEN THER APY PROTOCOL CALISTA ACEVES Start: 11-14-2018 PULSE OXIMETRY, CONTINUOUS CALISTA ACEVES Start: 11-14-2018 IP CONSULT TO REHAB/ TCU ADMISSION COORDINATOR CALISTA ACEVES Start: 11-14-2018 INCENTIVE SPIROMETRY RT CALISTA ACEVES Start: 11-14-2018 Blood count complete auto&auto difrntl wbc CALISTA ACEVES Start: 11-14-2018 Comprehensive metabo lic panel CALISTA ACEVES Start: 11-14-2018 PULSE OXIMETRY, CONTINUOUS CALISTA ACEVES Start: 11-14-2018 ACTIVITY TOLERATED M DORA ACEVES Start: 11-14-2018 AMBULATE PATIENT CALISTA KETAN Start: 11-14-2018 DAILY WEIGHTS CALISTA PETRA PATINO Start: 11-14-2018 OT EVAL AND TREAT MARQUEZ ACEEVS Start: 11-14-2018 PT EVAL AND TREAT MARQUEZ ACEVES Start: 11-14-2018 PULSE OXIMETRY, CONTINUOUS CALISTA ACEVES Start: 11-14-2018 INCENTIVE SPIROMETRY RT CALISTA ACEVES Start: 11-13-2018 INCENTIVE SPIROMETRY RT CALISTA ACEVES Start: 11-13-2018 PULSE OXIMETRY, CONTINUOUS CALISTA ACEVES Start: 11-13-2018 INCENTIVE SPIROMETRY RT CALISTA ACEVES Start: 11-13-2018 DIET GENERAL CALISTA RIVERA UN Start: 11-13-2018 PLACE INTERMITTENT P NEUMATIC COMPRESSION DEVICE CALISTA ACEVES Start: 11-13-2018 PULSE OXIMETRY, CONTINUOUS CALISTA ACEVES Start: 11-13-2018 ADVANCE DIET TOLE RATED (NURSING COMMUNICATION) CALISTA ACEVES Start: 11-13-2018 ELEVATE HOB CALISTA STAFFORD UN Start: 11-13-2018 INCENTIVE SPIROMETRY RT CALISTA ACEVES Start: 11-13-2018 INITIATE OXYGEN THER APY PROTOCOL CALISTA ACEVES Start: 11-13-2018 INTAKE AND OUTPUT MARQUEZ ACEVES Start: 11-13-2018 NEURO/VASCULAR CHECKS M DORA ACEVES Start: 11-13-2018 NOTIFY PHYSICIAN (SPECIFY) CALISTA ACEVES Start: 11-13-2018 TELEMETRY MONITORING MA ALEX ACEVES Start: 11-13-2018 TOBACCO CESSATION EDUCATION CALISTA ACEVES Start: 11-13-2018 VITAL SIGNS CALISTA STAFFORD UN Start: 11-13-2018 WOUND CARE CALISTA STAFFORD UN Start: 11-13-2018 FULL CODE CALISTA STAFFORD UN Start: 11-13-2018 Blood count complete automated [...] ACEVES Start: 11-05-2018 DIET FULL LIQUID CALISTA KETAN Start: 11-05-2018 FULL CODE CALISTA STAFFORD UN Start: 11-05-2018 INTAKE AND OUTPUT MARQUEZ Gissell KETAN Start: 11-05-2018 NOTIFY PHYSICIAN (SPECIFY) CALISTA ACEVES [...] CALISTA ACEVES Start: 11-04-2018 VITAL SIGNS CALISTA RIVERA UN Start: 11-04-2018 Sedimentation rate r bc automated [...] Drummond Work Phone: Start: 11-04-2018 C-reactive protein Stevenfredis Drummond Work Phone: Start: 11-04-2018 Comprehensive metabo lic panel Ab Drummond Work Phone: Start: 11-04-2018 Prothrombin time Ab Drummond Work Phone: Start: 11-04-2018 Thromboplastin time partial plasma/whole blood Ab Drummond Work Phone: Appendectomy MIKAYLA WEISS Bilateral salpingect mackenzie with oophorectomy MIKAYLA WEISS Cataract extraction and insertion of intraocular lens MIKAYLA WEISS Cholecystectomy MIKAYLA MARTINEZ Colonoscopy MIKAYLA WEISS Procedure on back MIKAYLA Ammon DUMAS Tonsillectomy MIKAYLA WEISS Plan of Treatment Date Care Activity Detail Author Start: 04-06-2023 [facility] Start: 04-04-2023 Administration of prophylactic treatment [facility] Start: 04-02-2023 Referral to flat hammerer [facility] Start: 04-02-2023 Hospital admission [facility] Start: 08-05-2022 CT Abdomen and Pelvi s WO contrast [facility] Start: 08-05-2022 CT of abdomen and pe lvis without contrast CT abdomen pelvis wo con [facility] Start: 11-19-2019 Creatinine monitoring Creatinine mon [place], [place] Start: 11-19-2019 Potassium monitoring Potassium monit [place], [place] Start: 11-05-2019 Creatinine monitoring Creatinine mon [place] Start: 11-05-2019 Potassium monitoring Potassium monit [place] Start: 12-04-2018 End: 12-04-2018 Office Visit 12/04/2018 Office Visit Neurosurgery Lenny Corral MD [address], [address] [place], [place] [id number] [facility] Start: 11-30-2018 End: 11-30-2018 Office Visit 11/30/2018 Office Visit Neurosurgery Lenny Corral MD [address] [facility] [address], [address] [id number] [facility] Start: 11-23-2018 End: 11-23-2018 Office Visit 11/23/2018 Office Visit Neurosurgery Lenny Corral MD [address] [facility], [address] [id number] [facility] Start: 11-13-2018 Annual Wellness Visi t (AWV) Annual Wellness Visit (AWV) [place], [place] Start: 10-21-2018 Influenza vaccination Flu vaccine (# 1) [place], [place] Start: 2001 DEXA (modify frequen cy per FRAX score) DEXA (modify frequency per FRAX score) [place] Start: 2001 Pneumococcal 65+ yea rs Vaccine (1 of 2 - PCV13) Pneumococcal 65+ years Vaccine (1 of 2 - PCV13) [place] Start: 1986 Shingles Vaccine (1 of 2) Steward gles Vaccine (1 of 2) [place] Start: 11-13-1955 DTaP/Tdap/Td vaccine (1 - Tdap) DTaP/Tdap/Td vaccine (1 - Tdap) [place], [place] Start: 1946 Lipid screen Lipid screen [place], [place] Culture Blood #1 Culture Blood # 1 Microbiology STAT 11/15/2018 4:37 PM EDT [place] Culture Blood #2 Culture Blood # 2 Microbiology STAT 11/15/2018 4:37 PM EDT [place] End: 11-05-2018 EKG 12 Lead EKG 12 Lead ECG Routine One Time for 1 Occurrences starting 11/05/2018 until 11/05/2018 [place] Comment on above: One Time for 1 Occur rences starting 11/05/2018 until 11/05/2018 Incentive spirometry Incentive s pirometry Respiratory Care Routine Every 2hr while awake until discontinued starting 11/15/2018 [facility] [place] Comment on above: Every 2hr while awak e until discontinued starting 11/15/2018 Initiate Oxygen Ther apy Protocol Initiate Oxygen Therapy Protocol Respiratory Care Routine Daily until discontinued starting 11/15/2018 [facility] [place] Comment on above: Daily until disconti nued starting 11/15/2018 Nonrebreather mask oxygen Nonreb reather mask oxygen Respiratory Care Routine As directed - RT (PRN) until discontinued starting 11/05/2018 [facility] [place] Comment on above: As directed - RT (SC N) until discontinued starting 11/05/2018 Patient Education Kidney Stones (DC) [facility] Work Phone: Patient referral [facility] Work Phone: End: 11-15-2018 Speech and language therapy regime Speech language pathology evaluation 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 Routine One Time for 1 Occurrences starting 11/15/2018 until 11/15/2018 [facility] [place] Comment on above: One Time for 1 Occur rences starting 11/15/2018 until 11/15/2018 End: 11-04-2018 Urine Reflex to Culture Urine Reflex to Culture Lab STAT One Time for 1 Occurrences starting 11/04/2018 until 11/04/2018 [place] Comment on above: One Time for 1 Occur rences starting 11/04/2018 until 11/04/2018 Immunizations Immunization Date Immunization Notes Care Provider [facility] 12-20-2021 influenza virus vaccine, unspecified formulation MIKAYLA WEISS [facility] 11-30-2021 influenza virus vaccine, unspecified formulation MD Addy Daniels Work Phone: [facility] 12-21-2020 influenza virus vaccine, unspecified formulation MIKAYLA WEISS [facility] 01-09-2019 influenza virus vaccine, unspecified formulation MIKAYLA ABDULLAHI [facility] 11-29-2017 influenza virus vaccine, unspecified formulation MIKAYLA ABDULLAHI [facility] 01-02-2017 influenza virus vaccine, unspecified formulation MIKAYLA ABDULLAHI [facility] 12-06-2016 influenza virus vaccine, unspecified formulation MIKAYLA ABDULLAHI [facility] 12-11-2014 influenza virus vaccine, unspecified formulation MIKAYLA ABDULLAHI [facility] Payers Date Payer Category Payer Self-pay [id number] 2021 Unknown [id number] 2018 Medicare MEDICARE MEDICAR E PART A AND B xxxxxxxxxxx 2018-Present [phone] [place] [address] xxxxxxxxxxx [id number] 2014 Medicare [id number] 2014 Medicare MEDICARE MEDICAR E PART A AND B xxxxxxxxxx 2014-Present [phone] [place] [address] xxxxxxxxxx [id number] 2014 Unknown [id number] 2014 Unknown 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 [address] xxxxxxxxxxxx 2014-Present [phone] [address] [place] [address] xxxxxxxxxxxx [id number] 1959 Medicare [id number] 1959 Self-pay [id number] 1959 Unknown [id number] 1936 Unknown [id number] 2.16.840.1.440465.3.579.2.647 1936 Unknown [id number] 2.16.840.1.748969.3.579.2.182 1936 Unknown [id number] 2.16.840.1.728325.3.579.2.182 1936 Unknown [id number] 2.16.840.1.159718.3.579.2.182 1936 Unknown [id number] 2.16.840.1.783040.3.579.2.182 1936 Unknown [id number] 2.16.840.1.199077.3.579.2.593 1936 Unknown [id number] 2.16.840.1.280469.3.579.2.593 1936 Unknown [id number] 2.16.840.1.016484.3.579.2.593 1936 Unknown [id number] 2.16.840.1.434853.3.579.2.593 1936 Unknown [id number] 2.16.840.1.391967.3.579.2.593 1936 Unknown [id number] 2.16.840.1.701142.3.579.2.593 1936 Unknown [id number] 2.16.840.1.559120.3.579.2.593 1936 Unknown [id number] 2.16.840.1.888266.3.579.2.593 1936 Unknown [id number] 2.16.840.1.520464.3.579.2.593 1936 Unknown [id number] 2.16.840.1.894891.3.579.2.593 1936 Unknown [id number] 2.16.840.1.588145.3.579.2.727 1936 Unknown [id number] 2.16.840.1.011863.3.579.2.727 1936 Unknown [id number] 2.16.840.1.706731.3.579.2.727 1936 Unknown [id number] 2.16.840.1.440497.3.579.2.727 1936 Unknown [id number] 2.16.840.1.407403.3.579.2.727 1936 Unknown [id number] 2.16.840.1.755037.3.579.2.727 Unknown Unknown [id number] 2.16.840.1.273637.3.579.2.531 Unknown [id number] 2.16.840.1.322044.3.579.2.531 Unknown [id number] 2.16.840.1.569624.3.579.2.531 Social History Date Type Detail Facility Start: 11-04-2018 End: 04-03-2023 Tobacco smoking status NHIS Never smoker [facility] Start: 11-04-2018 End: 11-19-2018 [facility] intake Not [facility] Sex Assigned At Not on file [place] Tobacco smoking status No Smokin g Status Entered [facility] Start: 1935 Sex Assigned At Female F [facility] Tobacco smoking status Never [facility] Medical Equipment Procedure Code Equipment Code Equipment Origin al Text Equipment Identifier Dates Graft Canc Chip 30cc [id number] - [id number] Start: 11-13-2018 Graft Canc Chip [id number] 15cc - [id number] Start: 11-13-2018 Sys Fix Reline 0 x Conn 40 50mm 5.5lp Adj [id number] Start: 11-13-2018 Jose Armando-Graft Infuse Kt Med [id number] Start: 11-13-2018 Impl Spine Cage Kamila Crv [id number] 8deg [id number] Start: 11-13-2018 Impl Spine Cage Kamila Crv [id number] 8deg [id number] Start: 11-13-2018 Screw Polyaxial Reline O 2s 6.0x55mm [id number] Start: 11-13-2018 Screw Lk Reline Opn Tulip 5.5mm [id number] Start: 11-13-2018 Impl Spine Harish Reline-O Lrdtc 5.5x70mm [id number] Start: 11-13-2018 Impl Spine Harish Reline-O 5.5x75mm [id number] Start: 11-13-2018 Goals Date Patient Goal Desired Activity /State Functional Status Date Assessment Result Facility 04-06-2023 Functional status Patient at Baseline [facility] Work Phone: 12-22-2022 Functional Status N/A [facility] Mental Status Date Assessment Result Facility 04-06-2023 Cognitive function Cognitive Sta tus Patient at Baseline [facility] Work Phone: Clinical Notes 04-04-2022 to 04-06-2023 Note Date & Type Note Facility 04-06-2023 Discharge summary Note Date/Time April 06, 2023 12:22pm [facility] [address] [place] [address] Discharge Summary Signed Patient: Hiram Madrid MR#: [id number] : 1935 Acct:[id number] Age/Sex: 87 / F Adm Date: 4 Loc: 4P Room: [address] [place] [address]: Turner Frank DO Copies to: MD Turner Pickering, DO~ Providers Date of Discharge: 04/06/23 Discharging Provider: Turner Frank Primary Care Provider: Addy Daniels Consults: 04/02/23 19:59 Consult to Nephrology Routine Comment: Consulting Provider: Gaudencio Romero Has Provider Been Notified: Yes Date of Notification: 04/03/23 Time of Notification: 08:13 Reason for Consult: Hyper/Hypo Natremia 04/02/23 20:00 Consult to Occupational Therapy Routine Comment: Physician Instructions: Consult to OT for:: Evaluation and Treat Consult to Physical Therapy Routine Comment: Physician Instructions: Consult to PT for:: Evaluation and Treat Discharge Diagnosis Final Diagnosis Final Discharge Diagnosis: 1. Acute hyponatremia 2. Orthostasis 3. Dizziness 4. Hypothyroidism 5. Hypomagnesemia 6. Hypokalemia 7. Generalized anxiety 8. History of vasovagal syncope Summary Hospital Course Hospital course: This patient is a 89-year-old who presented here to [facility] as a transfer on 04/02/2023. She had been hospitalized there for the prior 1 to 2 days due to severe hyponatremia. Level arrival 116. This reportedlyhas been an ongoing issue with multiple hospitalizations repeatedly for this same ongoing issue. She was brought here for nephrology consultation. The patient had been taking hydrochlorothiazide for a number of years and this was immediately held on admission. Urine sodium and urine osmolality both showed mild elevation suggesting either SIADH and/or thiazide diuretic effect. This isseemingly more of her thiazide as she responded well to gradual IV hydration with normal saline. He is corrected at the appropriate rate and she symptomatically improved after initially reporting some mild nausea and dizziness. Last sodium day prior to discharge was 131. She will follow-up witha repeat BMP in 7 to 10 days. Notably she did have positive orthostatic vital signs and some vasovagal type ofsymptoms. No loss of consciousness. She reports no history of syncopal episodes with loss of consciousness that were consistent with a diagnosis of vasovagal syncope previously. While hospitalized here her blood pressure generally remained normotensive to hypertensive as high as the 180s systolicallyand they rarely drop below 120 systolic. She did have some significant swings in blood pressure with positional changes on orthostatic readings lying, sittingand standing. Sometimes symptomatic with this but no falls or loss of consciousness. Ultimately I discussed that she may have some chronic autonomic neuropathy driving this orthostasis but really there is no definitive treatment besides maintaining hydration. Emphasized the importance of caution with these positional changes and to rest for least a minute when going from 1 position to the next. Be particularly aware of risk of these events in and out of and whiletoileting. Patient was prescribed 10 mg amlodipine daily. Her home med list reports [id number] mg but currently shows me a 5 mg prescription. HCTZ will be held indefinitely Continue losartan 100 mg daily. Nephrology recommends low-dose Lasix 20 mg if edema develops. She really does not complain of this however and I will hold off on this. Note increased dose of amlodipine could worsen the existing edema. Notably her TSH and T4 were mildly abnormal. TSH mildly elevated 5.76(upper limit of normal 5.33uIU/mL). Free T4 mildly elevated 1.41 (upper limit of normal 1.12 ng/dL). This could represent undertreated hypothyroidism but would be hesitant to make any adjustments at this time is not symptomatic in this regard but cannot rule out that this is not contributing to her vasovagal symptoms. I will defer further thyroid adjustments to her PCP. She will go home with home health services. Physical Examination: GENERAL APPEARANCE: Alert, up in bed AAOx3 HEENT: NCAT, MMM NECK: Neck soft w/o masses, no JVD CARDIAC: Normal S1 and S2. No S3, S4 or murmurs. LUNGS: Clear to auscultation bilaterally. no wheeze/rhonchi/rales ABDOMEN: Positive bowel sounds. Soft, nontender. No guarding or signs of an acute abdomen MUSCULOSKELETAL: No joint erythema or tenderness. EXTREMITIES: No clubbing, cyanosis or edema PSYCHIATRIC: Appropriate mood and affect 40 minutes were spent coordinating the discharge of this patient Time Spent with Patient Time spent providing/coordinating discharge services (# min): 40 Exam Physical Exam Vital Signs: Temp Pulse Resp BP Pulse Ox O2 Del Method 97.9 F 84 18 146/76 H 97 Room Air 04/06/23 11:51 04/06/23 11:51 04/06/23 11:51 04/06/23 11:51 04/06/23 11:51 04/06/23 11:51 Discharge Plan Discharge Plan Patient Disposition: Home Health [facility] Activity: Ambulate as Tolerated Diet: Low-Sodium Additional Instructions: HOME HEALTH TO MANAGE: PT/OT to eval and treat Monitor VS per protocol: Positive orthostatic blood pressures Monitor assessment: Hyponatremia Monitor Neuro assessment: Dizziness, Syncope Assist with medication management and education Dietary recommendations: Ensure Plus, 1 container daily Draw BMP and send to PCP and renal clinic Prescriptions: Continued levothyroxine [Synthroid] 88 mcg Tablet 1 tab PO DAILY potassium chloride [Klor-Con M20] 20 mEq Tablet,Er Particles/Crystals 1 tab PO DAILY pravastatin 80 mg Tablet 1 tab PO DAILY losartan 100 mg Tablet 1 tab PO DAILY magnesium oxide 400 mg (241.3 mg magnesium) tablet 400 mg PO BID PRN (Reason: constipation) pantoprazole 40 mg tablet,delayed release (DR/EC) 40 mg PO DAILY.0630 amlodipine [Norvasc] 10 mg Tablet 1 tab PO DAILY 21 Days Qty: 21 0RF ondansetron HCl 4 mg tablet 4 mg PO DAILY PRN (Reason: nausea and vomiting) 5 Days Qty: 5 0RF Discontinued hydrochlorothiazide 25 mg tablet 25 mg PO DAILY Other Ambulatory Orders: Initiate Home Health (Routine) Timeframe: 1 Day Location: Determined by Patient Ordered By: Turner Frank Basic Metabolic Panel (Routine) Timeframe: 1 Week Location: Determined by Patient Ordered By: Turner Frank Follow Up: Addy Daniels MD [Primary Care Provider] - Documented By: Turner Frank DO 04/06/23 12 08 Signed By: <Electronically signed by Turner Frank DO> 04/06/23 [facility] Work Phone: 1(820) 391-220002-14-2024 Progress note Author Turner Frank [facility] April 05, 2023 8:14pm Note Date/Time April 05, 2023 8:14pm [facility] [address] [place] [address] Hospitalist Progress Note Signed Patient: Hiram Madrid MR#: [id number] : 1935 Acct:[id number] Age/Sex: 87 / F Adm Date: 4 Loc: Room: [address] [place] [address] Type: ADM IN Attending Dr: Turner Frank DO Copies to: ~ Date of Service: 04/05/2023 Subjective Subjective Narrative: Patient was seen and examined bedside. No acute events overnight. She does describe a warm feeling that overcame her during a 30 point orthostatic drop on orthostatic vitals early this morning. No loss of consciousness. Systolic blood pressure in the 180s did dip to 150 upon standing. Physical Examination: GENERAL APPEARANCE: Alert, up in bed AAOx3 HEENT: NCAT, MMM NECK: Neck soft w/o masses, no JVD CARDIAC: Normal S1 and S2. No S3, S4 or murmurs. LUNGS: Clear to auscultation bilaterally. no wheeze/rhonchi/rales ABDOMEN: Positive bowel sounds. Soft, nontender. No guarding or signs of an acute abdomen MUSCULOSKELETAL: No joint erythema or tenderness. EXTREMITIES: No clubbing, cyanosis or edema PSYCHIATRIC: Appropriate mood and affect Exam Physical Exam Vital Signs: Temp Pulse Resp BP Pulse Ox O2 Del Method 97.9 F 87 16 151/76 H 97 Room Air 04/05/23 16:00 04/05/23 16:00 04/05/23 16:00 04/05/23 16:00 04/05/23 16:00 04/05/23 16:00 Objective Lab Results 04/03/23 04:48 04/05/23 05:10 Meds Allergies and Active Meds Allergies atorvastatin Allergy (Unknown, Verified 02/20/22 09:00) Comment:blisters. Corticosteroids (Glucocorticoids) Allergy (Unknown, Verified 02/20/22 09:00) prednisone Allergy (Verified 08/05/22 19:50) Unknown Reaction Active Meds: Active Medications Generic Name Dose Route Start Last Admin Trade Name Freq PRN Reason Stop Dose Admin Acetaminophen 650 mg 04/02/23 19:58 04/05/23 18:15 Acetaminophen 325 Mg Tablet PO 04/01/24 19:57 650 mg Q4H PRN Administration Pain Scale 1 - 5 Amlodipine Besylate 10 mg 04/03/23 09:00 04/05/23 08:25 Amlodipine 10 Mg Tablet PO 04/02/24 08:59 10 mg DAILY MALLORIE Administration Docusate Sodium 200 mg 04/02/23 19:58 Docusate 100 Mg Capsule PO 04/01/24 19:57 BID PRN Constipation Docusate Sodium 200 mg 04/03/23 09:00 04/05/23 08:25 Docusate 100 Mg Capsule PO 04/02/24 08:59 200 mg BID MALLORIE Administration Furosemide 20 mg 04/06/23 08:00 Furosemide 20 Mg Tablet PO 04/05/24 07:59 DAILY.8A MALLORIE Hydralazine HCl 10 mg 04/02/23 19:58 Hydralazine 20 Mg/Ml Vial IV-PUSH 04/01/24 19:57 Q4H PRN if SBP > 185 Potassium Chloride/Sodium Chloride 1,000 mls @ 75 mls/hr 04/02/23 20:30 04/04/23 08:45 0.9 % Nacl-20 Meq Kcl IV 04/01/24 20:29 0 mls/hr .[id number] MALLORIE Infusion Levothyroxine Sodium 88 mcg 04/03/23 06:30 04/05/23 05:52 Levothyroxine 88 Mcg Tablet PO 04/02/24 06:29 88 mcg DAILY@0630 MALLORIE Administration Lorazepam 0.25 mg 04/04/23 11:39 Lorazepam 2 Mg/Ml Vial IV-PUSH 10/01/23 11:38 Q4H PRN Anxiety Losartan Potassium 100 mg 04/03/23 09:00 04/05/23 08:26 Losartan 50 Mg Tablet PO 04/02/24 08:59 100 mg DAILY MALLORIE Administration Pantoprazole Sodium 40 mg 04/05/23 09:00 04/05/23 08:25 Pantoprazole 40 Mg Tablet.Dr PO 04/04/24 08:59 40 mg DAILY.0630 MALLORIE Administration Pravastatin Sodium 80 mg 04/03/23 09:00 04/05/23 08:25 Pravastatin 40 Mg Tablet PO 04/02/24 08:59 80 mg DAILY MALLORIE Administration Prochlorperazine Maleate 10 mg 04/03/23 05:51 04/05/23 05:10 Prochlorperazine Maleate 5 Mg Tablet PO 04/02/24 05:50 10 mg Q8HR PRN Administration Nausea And Vomiting Sodium Chloride 10 ml 04/04/23 11:39 Sodium Chloride 0.9 % 10 Ml Vial.Pf INJECTION 04/03/24 11:38 Q4H PRN Ativan dilution A&P - Hospitalist Assessment/Plan (1) Hyponatremia: Plan 1. Hyponatremia Elevated urine sodium and elevated urine osmolality suggest likely SIADH and/or thiazide diuretic contributing to this. Her HCTZ has been held. Her numbers have come up relatively quickly past goal rate of correction. Given the patient's improving symptoms this can be monitored. I have stopped her current normal saline but have not reversed this phenomenon with DDAVP. Appreciate nephrology recommendations. Will continue to monitor closely. Maintain telemetry. 2. Hypokalemia/hypomagnesemia replacement 3. Hypertension Continue losartan 4. DVT prophylaxis SCDs 5. Hypothyroidism Continue 88 mcg daily. Adjust per T4 level 6. Dizziness 7. Nausea Both of the symptoms have improved and are presumably more a manifestation of low sodium which is also improving. 8. Generalized anxiety Will defer long-term treatment to her PCP but I have ordered IV Ativan low-dose as needed should she develop any acute exacerbations of this. She is presently comfortable. 9. History of vasovagal syncope Will order orthostatic blood pressures vital signs to assess for any drops but generally her pressure has looked quite good and today seems to be on the higherend. Appreciate nephrology recommendations in regards to her antihypertensive meds. Will continue to monitor this but I explained that unfortunately this is a difficult to treat but relatively benign phenomenon and could be exacerbated by dehydration at times or other more rare hormonal abnormalities. She has not lost consciousness but did on prior episodes last year. Ultimately could follow-up with neurology for tilt table testing and further diagnostics if ongoing and more symptomatic however I encouraged her to exercise caution with positional changes and take a minute to get her bearings before moving further. Documented By: Turner Frank DO 04/05/23 20 09 Signed By: <Electronically signed by Turner Frank DO> 04/05/232013 [facility] Work Phone: 1([phone] Progress note Author Gaudencio [facility] April 05, 2023 11:16am Note Date/Time April 05, 2023 11:16am [facility] [address] [place] [address] Nephrology Progress Note Signed Patient: Hiram Madrid MR#: [id number] : 1935 Acct:[id number] Age/Sex: 87 / F Adm Date: 4 Loc: Room: [address] [place] [address] Type: ADM IN Attending Dr: Turner Frank DO Copies to: ~ Date of Service: 04/05/2023 Subjective Subjective Narrative: Ms. Madrid is an 87-year-old white female was transferred from [facility] on 04/02/23 for hyponatremia. Patient did complain for nausea with no vomiting or diarrhea. She had back pain and other vague symptoms that prompted her to go [facility]. ER lab showed sodium 116, potassium 2.3 and magnesium 1.6. Otherlabs unremarkable including creatinine 0.7 mg/dL. EKG showed normal sinus rhythm at 86/min with right bundle branch block. Patient was given 2 g magnesium in the emergency room and subsequently was transferred to [facility] for further management. On arrival, patient was placed on gentle hydration with normal saline with 20 mEq potassium chloride at rate of75 cc/h. 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 Sodium has been running in the 120s. Patient has a history of hypertension on hydrochlorothiazide. She denies history of CHF. Patient had nausea however there is no vomiting. No diarrhea. Blood pressure variable between 130s to 150s with no episodes of hypotension. Interval history: IV fluid was stopped yesterday at the patient is able to eat and drink. Hyponatremia continues to improve sodium up to 130 mmol/L. Patient has normal renal function with creatinine 0.56. Blood pressure is up to 159/75. Patient used to be on hydrochlorothiazide that is on hold because of hyponatremia. She still on losartan and amlodipine maximum doses. She still has vague symptoms including burning-like sensation shooting up from the feet up to the neck she stated [facility] found to have [facility]. It is not clear if the patient has an element of neuropathy. These symptoms are less likely to be related to Hypernatremia. She mentioned that her blood pressure did drop when she is standing however I did not see any orthostatic hypotension recorded in the chart. She denies any diarrhea. She stated that nausea did improve. No vomiting Exam Physical Exam Vital Signs: Temp Pulse Resp BP Pulse Ox O2 Del Method 36.6 C 81 18 159/75 H 97 Room Air 04/05/23 07:51 04/05/23 07:51 04/05/23 07:51 04/05/23 07:51 04/05/23 07:51 04/05/23 08:00 Narrative: Constitutional: Looks younger than her stated age, appears comfortable and not in distress HEENT: No pallor or Jaundice Cardiovascular: RRR, normal S1-S2, no gallop or rub, No JVD Respiratory: Good bilateral air entry no wheezing or crackles Gastrointestinal: Soft, non tender, positive bowel sounds Extremities: No edema Skin: No rashes or bruises Neurology: Awake, alert, oriented ?3, No focal motor or sensory deficits Psych: Normal mood and affect Objective Intake and Output I&O: Intake & Output 04/02/23 04/03/23 04/04/23 04/05/23 23:59 23:59 23:59 23:59 Intake Total 100 / 100 2275 / 2275 1125 / 1125 120 / 120 Output Total 250 / 250 Balance 100 / 100 2024 / 2024 1124 / 1124 120 / 120 Weight 63 kg 61.3 kg 62.5 kg 58.2 kg Meds and Allergies Meds: Active Medications Acetaminophen (Acetaminophen 325 Mg Tablet) 650 mg PO Q4H PRN PRN Reason: Pain Scale 1 - 5 Stop: 04/01/24 19:57 Amlodipine Besylate (Amlodipine 10 Mg Tablet) 10 mg PO DAILY [facility] Stop: 04/02/24 08:59 Last Admin: 04/05/23 08:25 Dose: 10 mg Docusate Sodium (Docusate 100 Mg Capsule) 200 mg PO BID PRN PRN Reason: Constipation Stop: 04/01/24 19:57 Docusate Sodium (Docusate 100 Mg Capsule) 200 mg PO BID [facility] Stop: 04/02/24 08:59 Last Admin: 04/05/23 08:25 Dose: 200 mg Hydralazine HCl (Hydralazine 20 Mg/Ml Vial) 10 mg IV-PUSH Q4H PRN PRN Reason: if SBP > 185 Stop: 04/01/24 19:57 Potassium Chloride/Sodium Chloride (0.9 % Nacl-20 Meq Kcl) 1,000 mls @ 75 mls/hr IV .[id number] [facility] Stop: 04/01/24 20:29 Last Infusion: 04/04/23 08:45 Dose: 0 mls/hr Levothyroxine Sodium (Levothyroxine 88 Mcg Tablet) 88 mcg PO DAILY@0630 [facility] Stop: 04/02/24 06:29 Last Admin: 04/05/23 05:52 Dose: 88 mcg Lorazepam (Lorazepam 2 Mg/Ml Vial) 0.25 mg IV-PUSH Q4H PRN PRN Reason: Anxiety Stop: 10/01/23 11:38 Losartan Potassium (Losartan 50 Mg Tablet) 100 mg PO DAILY [facility] Stop: 04/02/24 08:59 Last Admin: 04/05/23 08:26 Dose: 100 mg Pantoprazole Sodium (Pantoprazole 40 Mg Tablet.Dr) 40 mg PO DAILY.0630 [facility] Stop: 04/04/24 08:59 Last Admin: 04/05/23 08:25 Dose: 40 mg Pravastatin Sodium (Pravastatin 40 Mg Tablet) 80 mg PO DAILY [facility] Stop: 04/02/24 08:59 Last Admin: 04/05/23 08:25 Dose: 80 mg Prochlorperazine Maleate (Prochlorperazine Maleate 5 Mg Tablet) 10 mg PO Q8HR PRN PRN Reason: Nausea And Vomiting Stop: 04/02/24 05:50 Last Admin: 04/05/23 05:10 Dose: 10 mg Sodium Chloride (Sodium Chloride 0.9 % 10 Ml Vial.Pf) 10 ml INJECTION Q4H PRN PRN Reason: Ativan dilution Stop: 04/03/24 11:38 Allergies atorvastatin Allergy (Unknown, Verified 02/20/22 09:00) Comment:blisters. Corticosteroids (Glucocorticoids) Allergy (Unknown, Verified 02/20/22 09:00) prednisone Allergy (Verified 08/05/22 19:50) Unknown Reaction Results Labs 04/03/23 04:48 04/05/23 05:10 Labs: 04/04/23 04/05/23 17:57 05:10 BUN 7 8 Creatinine 0.61 0.56 L Radiology Impressions Impressions - last 24 hours: Any impression(s) listed above is documentation that was entered by the reading physician into a diagnostic report(s) for Hiram Madrid. I have reviewed the report(s) and am incorporating any findings in the treatment plan of this patient where applicable. A&P - Nephrology Assessment/Plan (1) Hyponatremia: Assessment/Problem Details: Patient presented with severe hyponatremia sodium 116 mmol/L. Review of recordsshowed that she has a chronic hyponatremia with sodium 125 on July 2022 however the patient was asymptomatic and she never had workup. 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 Patient could have also an element of volume depletion. Urine sodium is elevated as she was on diuretics. (2) HTN (hypertension): Assessment/Problem Details: Hypertension treated with multiple blood pressure medications including hydrochlorothiazide. Plan * IV fluid was stopped. Sodium up to 130. * Continue amlodipine 10 mg daily and losartan 100 mg daily. Will add furosemide 20 mg daily instead of hydrochlorothiazide to avoid recurrent Hypernatremia. Blood pressure has increased significantly after discontinuation of hydrochlorothiazide. Continue low-salt diet. Patient stable from renal point to be discharged at any time. Patient need follow-up lab in 7 to 10 days and follow-up with PCP or renal clinic to adjust medications for blood pressure as needed. Documented By: Gaudencio Romero MD 04/05/23 1109 Signed By: <Electronically signed by MD Gaudencio Romero> 04/05/23 1116 [facility] Work Phone: [phone]) 407-380302-13-2024 Progress note Author Gaudencio Romero [facility] April 04, 2023 2:06pm Note Date/Time April 04, 2023 2:00pm [facility] [address] [place] [address] Nephrology Progress Note Signed Patient: Hiram Madrid MR#: [id number] : 1935 Acct:[id number] Age/Sex: 87 / F Adm Date: 4 Loc: Room: [address] [place] [address] Type: ADM IN Attending Dr: Turner Frank DO Copies to: ~ Date of Service: 04/04/2023 Subjective Subjective Narrative: Ms. Madrid is an 87-year-old white female was transferred from [facility] on 04/02/23 for hyponatremia. Patient did complain for nausea with no vomiting or diarrhea. She had back pain and other vague symptoms that prompted her to go [facility]. ER lab showed sodium 116, potassium 2.3 and magnesium 1.6. Otherlabs unremarkable including creatinine 0.7 mg/dL. EKG showed normal sinus rhythm at 86/min with right bundle branch block. Patient was given 2 g magnesium in the emergency room and subsequently was transferred to [facility] for further management. On arrival, patient was placed on gentle hydration with normal saline with 20 mEq potassium chloride at rate of75 cc/h. 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 Sodium has been running in the 120s. Patient has a history of hypertension on hydrochlorothiazide. She denies history of CHF. Patient had nausea however there is no vomiting. No diarrhea. Blood pressure variable between 130s to 150s with no episodes of hypotension. 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 She has been on gentle hydration with normal saline and 20 mEq potassium chloride with gradual improvement of sodium up to 127 mmol/L today. Patient has no symptoms. She feels comfortable with today's open no edema. Patient is able to eat and drink. No nausea or vomiting. She has normal renal function. Blood pressure started to increase 140s to 150 systolic. Pulse ox 96% room air Exam Physical Exam Vital Signs: Temp Pulse Resp BP Pulse Ox O2 Del Method 36.6 C 86 18 151/63 H 96 Room Air 04/04/23 11:50 04/04/23 11:50 04/04/23 11:50 04/04/23 11:50 04/04/23 11:50 04/04/23 11:50 Narrative: Constitutional: Looks younger than her stated age, appears comfortable and not in distress HEENT: No pallor or Jaundice Cardiovascular: RRR, normal S1-S2, no gallop or rub, No JVD Respiratory: Good bilateral air entry no wheezing or crackles Gastrointestinal: Soft, non tender, positive bowel sounds Extremities: No edema Skin: No rashes or bruises Neurology: Awake, alert, oriented ?3, No focal motor or sensory deficits Psych: Normal mood and affect Objective Intake and Output I&O: Intake & Output 04/01/23 04/02/23 04/03/23 04/04/23 23:59 23:59 23:59 23:59 Intake Total 100 / 100 2275 / 2275 5 / 675 Output Total 250 / 250 Balance 2024 674 / 674 Weight 63 kg 61.3 kg 62.5 kg Meds and Allergies Meds: Active Medications Acetaminophen (Acetaminophen 325 Mg Tablet) 650 mg PO Q4H PRN PRN Reason: Pain Scale 1 - 5 Stop: 04/01/24 19:57 Amlodipine Besylate (Amlodipine 10 Mg Tablet) 10 mg PO DAILY [facility] Stop: 04/02/24 08:59 Last Admin: 04/04/23 10:06 Dose: 10 mg Docusate Sodium (Docusate 100 Mg Capsule) 200 mg PO BID PRN PRN Reason: Constipation Stop: 04/01/24 19:57 Docusate Sodium (Docusate 100 Mg Capsule) 200 mg PO BID [facility] Stop: 04/02/24 08:59 Last Admin: 04/04/23 10:06 Dose: Not Given Hydralazine HCl (Hydralazine 20 Mg/Ml Vial) 10 mg IV-PUSH Q4H PRN PRN Reason: if SBP > 185 Stop: 04/01/24 19:57 Potassium Chloride/Sodium Chloride (0.9 % Nacl-20 Meq Kcl) 1,000 mls @ 75 mls/hr IV .[id number] [facility] Stop: 04/01/24 20:29 Last Infusion: 04/04/23 08:45 Dose: 0 mls/hr Levothyroxine Sodium (Levothyroxine 88 Mcg Tablet) 88 mcg PO DAILY@0630 [facility] Stop: 04/02/24 06:29 Last Admin: 04/04/23 06:26 Dose: 88 mcg Lorazepam (Lorazepam 2 Mg/Ml Vial) 0.25 mg IV-PUSH Q4H PRN PRN Reason: Anxiety Stop: 10/01/23 11:38 Losartan Potassium (Losartan 50 Mg Tablet) 100 mg PO DAILY [facility] Stop: 04/02/24 08:59 Last Admin: 04/04/23 10:06 Dose: 100 mg Pantoprazole Sodium (Pantoprazole 40 Mg Tablet.Dr) 40 mg PO DAILY.0630 [facility] Stop: 04/04/24 08:59 Pravastatin Sodium (Pravastatin 40 Mg Tablet) 80 mg PO DAILY [facility] Stop: 04/02/24 08:59 Last Admin: 04/04/23 10:06 Dose: 80 mg Prochlorperazine Maleate (Prochlorperazine Maleate 5 Mg Tablet) 10 mg PO Q8HR PRN PRN Reason: Nausea And Vomiting Stop: 04/02/24 05:50 Last Admin: 04/03/23 05:54 Dose: 10 mg Sodium Chloride (Sodium Chloride 0.9 % 10 Ml Vial.Pf) 10 ml INJECTION Q4H PRN PRN Reason: Ativan dilution Stop: 04/03/24 11:38 Allergies atorvastatin Allergy (Unknown, Verified 02/20/22 09:00) Comment:blisters. Corticosteroids (Glucocorticoids) Allergy (Unknown, Verified 02/20/22 09:00) prednisone Allergy (Verified 08/05/22 19:50) Unknown Reaction Results Labs 04/03/23 04:48 04/04/23 04:19 Labs: 04/03/23 04/03/23 04/04/23 12:14 18:21 04:19 BUN 7 7 7 Creatinine 0.61 0.65 0.59 L Radiology Impressions Impressions - last 24 hours: Any impression(s) listed above is documentation that was entered by the reading physician into a diagnostic report(s) for Hiram Madrid. I have reviewed the report(s) and am incorporating any findings in the treatment plan of this patient where applicable. A&P - Nephrology Assessment/Plan (1) Hyponatremia: Assessment/Problem Details: Patient presented with severe hyponatremia sodium 116 mmol/L. Review of recordsshowed that she has a chronic hyponatremia with sodium 125 on July 2022 however the patient was asymptomatic and she never had workup. 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 Patient could have also an element of volume depletion. Urine sodium is elevated as she was on diuretics. (2) HTN (hypertension): Assessment/Problem Details: Hypertension treated with multiple blood pressure medications including hydrochlorothiazide. Plan * Sodium is corrected to safe level 127 mmol/L. She has normal renal function. She still on IV fluid however blood pressure started to increase. Potassium is up to normal. She is able to eat and drink. Will discontinue IV fluid. * Continue amlodipine 10 mg daily and losartan 100 mg daily. Blood pressure reasonably controlled for her age. No need for diuretics at this point however if blood pressure does not improve and she need diuretics, will use furosemide rather than HCT. * Will check another sodium and potassium at 6 PM and she will have another BMP tomorrow. Hopefully the patient can be discharged tomorrow if potassium and sodium are stable. Will decide about addition of furosemide at the time of discharge lateras outpatient Documented By: Gaudencio Romero MD 04/04/23 9606 Signed By: <Electronically signed by MD Gaudencio Romero> 04/04/23 1400 [facility] Work Phone: 1(432) 675-849202-13-2024 Progress note Author Turner Frank [facility] April 04, 2023 1:09pm Note Date/Time April 04, 2023 1:09pm [facility] [address] [place] [address] Hospitalist Progress Note Signed Patient: Hiram Madrid MR#: [id number] : 1935 Acct:[id number] Age/Sex: 87 / F Adm Date: 4 Loc: Room: [address] [place] [address] Type: ADM IN Attending Dr: Turner Frank DO Copies to: ~ Date of Service: 04/04/2023 Subjective Subjective Narrative: Patient seen and examined bedside. Her previously reported nausea and dizzinesshave both improved. She further reports to me a prior diagnosis and multiple bouts of vasovagal syncope in the past. She has not lost consciousness or had asimilar episode during this hospitalization. Also reports some generalized anxiety that she has started therapy for with her PCP but did not tolerate the long-term treatments. Physical Examination: GENERAL APPEARANCE: Alert, up in bed AAOx3 HEENT: NCAT, MMM NECK: Neck soft w/o masses, no JVD CARDIAC: Normal S1 and S2. No S3, S4 or murmurs. LUNGS: Clear to auscultation bilaterally. no wheeze/rhonchi/rales ABDOMEN: Positive bowel sounds. Soft, nontender. No guarding or signs of an acute abdomen MUSCULOSKELETAL: No joint erythema or tenderness. EXTREMITIES: No clubbing, cyanosis or edema PSYCHIATRIC: Appropriate mood and affect Exam Physical Exam Vital Signs: Temp Pulse Resp BP Pulse Ox O2 Del Method 97.9 F 86 18 151/63 H 96 Room Air 04/04/23 11:50 04/04/23 11:50 04/04/23 11:50 04/04/23 11:50 04/04/23 11:50 04/04/23 11:50 Objective Lab Results 04/03/23 04:48 04/04/23 04:19 Meds Allergies and Active Meds Allergies atorvastatin Allergy (Unknown, Verified 02/20/22 09:00) Comment:blisters. Corticosteroids (Glucocorticoids) Allergy (Unknown, Verified 02/20/22 09:00) prednisone Allergy (Verified 08/05/22 19:50) Unknown Reaction Active Meds: Active Medications Generic Name Dose Route Start Last Admin Trade Name Freq PRN Reason Stop Dose Admin Acetaminophen 650 mg 04/02/23 19:58 Acetaminophen 325 Mg Tablet PO 04/01/24 19:57 Q4H PRN Pain Scale 1 - 5 Amlodipine Besylate 10 mg 04/03/23 09:00 04/04/23 10:06 Amlodipine 10 Mg Tablet PO 04/02/24 08:59 10 mg DAILY [facility] Administration Docusate Sodium 200 mg 04/02/23 19:58 Docusate 100 Mg Capsule PO 04/01/24 19:57 BID PRN Constipation Docusate Sodium 200 mg 04/03/23 09:00 04/04/23 10:06 Docusate 100 Mg Capsule PO 04/02/24 08:59 Not Given BID [facility] Hydralazine HCl 10 mg 04/02/23 19:58 Hydralazine 20 Mg/Ml Vial IV-PUSH 04/01/24 19:57 Q4H PRN if SBP > 185 Potassium Chloride/Sodium Chloride 1,000 mls @ 75 mls/hr 04/02/23 20:30 04/04/23 08:45 0.9 % Nacl-20 Meq Kcl IV 04/01/24 20:29 0 mls/hr .[id number] [facility] Infusion Levothyroxine Sodium 88 mcg 04/03/23 06:30 04/04/23 06:26 Levothyroxine 88 Mcg Tablet PO 04/02/24 06:29 88 mcg DAILY@0630 [facility] Administration Lorazepam 0.25 mg 04/04/23 11:39 Lorazepam 2 Mg/Ml Vial IV-PUSH 10/01/23 11:38 Q4H PRN Anxiety Losartan Potassium 100 mg 04/03/23 09:00 04/04/23 10:06 Losartan 50 Mg Tablet PO 04/02/24 08:59 100 mg DAILY [facility] Administration Pantoprazole Sodium 40 mg 04/05/23 09:00 Pantoprazole 40 Mg Tablet.Dr PO 04/04/24 08:59 DAILY.0630 [facility] Pravastatin Sodium 80 mg 04/03/23 09:00 02/13/24 10:06 Pravastatin 40 Mg Tablet PO 04/02/24 08:59 80 mg DAILY [facility] Administration Prochlorperazine Maleate 10 mg 04/03/23 05:51 04/03/23 05:54 Prochlorperazine Maleate 5 Mg Tablet PO 04/02/24 05:50 10 mg Q8HR PRN Administration Nausea And Vomiting Sodium Chloride 10 ml 04/04/23 11:39 Sodium Chloride 0.9 % 10 Ml Vial.Pf INJECTION 04/03/24 11:38 Q4H PRN Ativan dilution A&P - Hospitalist Assessment/Plan (1) Hyponatremia: Plan 1. Hyponatremia Elevated urine sodium and elevated urine osmolality suggest likely SIADH and/or thiazide diuretic contributing to this. Her HCTZ has been held. Her numbers have come up relatively quickly past goal rate of correction. Given the patient's improving symptoms this can be monitored. I have stopped her current normal saline but have not reversed this phenomenon with DDAVP. Appreciate nephrology recommendations. Will continue to monitor closely. Maintain telemetry. 2. Hypokalemia/hypomagnesemia replacement 3. Hypertension Continue losartan 4. DVT prophylaxis SCDs 5. Hypothyroidism Continue 88 mcg daily. Adjust per T4 level 6. Dizziness 7. Nausea Both of the symptoms have improved and are presumably more a manifestation of low sodium which is also improving. 8. Generalized anxiety Will defer long-term treatment to her PCP but I have ordered IV Ativan low-dose as needed should she develop any acute exacerbations of this. She is presently comfortable. 9. History of vasovagal syncope Will order orthostatic blood pressures vital signs to assess for any drops but generally her pressure has looked quite good. Documented By: Turner Frank DO 04/04/23 13 04 Signed By: <Electronically signed by Turner Frank DO> 04/04/23 5006 [facility] Work Phone: 1(316) [phone] Progress note Author Turner Frank [facility] April 03, 2023 7:29pm Note Date/Time April 03, 2023 7:29pm [facility] [address] [place] [address] Hospitalist Progress Note Signed Patient: Hiram Madrid MR#: [id number] : 1935 Acct:[id number] Age/Sex: 87 / F Adm Date: 4 Loc: 4 Room: [address] [place] [address] Type: ADM IN Attending Dr: Turner Frank DO Copies to: ~ Date of Service: 04/03/2023 Subjective Subjective Narrative: Patient seen and examined bedside. She reports some vague dizziness and nausea,does not describe spinning or vertiginous symptoms. No chest pain or shortness of breath. No palpitations. Physical Examination: GENERAL APPEARANCE: Alert, up in bed AAOx3 HEENT: NCAT, MMM NECK: Neck soft w/o masses, no JVD CARDIAC: Normal S1 and S2. No S3, S4 or murmurs. LUNGS: Clear to auscultation bilaterally. no wheeze/rhonchi/rales ABDOMEN: Positive bowel sounds. Soft, nontender. No guarding or signs of an acute abdomen MUSCULOSKELETAL: No joint erythema or tenderness. EXTREMITIES: No clubbing, cyanosis or edema PSYCHIATRIC: Appropriate mood and affect Exam Physical Exam Vital Signs: Temp Pulse Resp BP Pulse Ox O2 Del Method 97.9 F 71 16 138/62 98 Room Air 04/03/23 15:54 04/03/23 15:54 04/03/23 15:54 04/03/23 15:54 04/03/23 15:54 04/03/23 15:54 Objective Lab Results 04/03/23 04:48 04/03/23 18:21 Meds Allergies and Active Meds Allergies atorvastatin Allergy (Unknown, Verified 02/20/22 09:00) Comment:blisters. Corticosteroids (Glucocorticoids) Allergy (Unknown, Verified 02/20/22 09:00) prednisone Allergy (Verified 08/05/22 19:50) Unknown Reaction Active Meds: Active Medications Generic Name Dose Route Start Last Admin Trade Name Freq PRN Reason Stop Dose Admin Acetaminophen 650 mg 04/02/23 19:58 Acetaminophen 325 Mg Tablet PO 04/01/24 19:57 Q4H PRN Pain Scale 1 - 5 Amlodipine Besylate 10 mg 04/03/23 09:00 04/03/23 08:58 Amlodipine 10 Mg Tablet PO 04/02/24 08:59 10 mg DAILY [facility] Administration Docusate Sodium 200 mg 04/02/23 19:58 Docusate 100 Mg Capsule PO 04/01/24 19:57 BID PRN Constipation Docusate Sodium 200 mg 04/03/23 09:00 04/03/23 08:58 Docusate 100 Mg Capsule PO 04/02/24 08:59 Not Given BID [facility] Hydralazine HCl 10 mg 04/02/23 19:58 Hydralazine 20 Mg/Ml Vial IV-PUSH 04/01/24 19:57 Q4H PRN if SBP > 185 Potassium Chloride/Sodium Chloride 1,000 mls @ 75 mls/hr 04/02/23 20:30 04/02/23 21:56 0.9 % Nacl-20 Meq Kcl IV 04/01/24 20:29 75 mls/hr .[id number] [facility] Administration Levothyroxine Sodium 88 mcg 04/03/23 06:30 04/03/23 05:54 Levothyroxine 88 Mcg Tablet PO 04/02/24 06:29 88 mcg DAILY@0630 [facility] Administration Losartan Potassium 100 mg 04/03/23 09:00 04/03/23 08:58 Losartan 50 Mg Tablet PO 04/02/24 08:59 100 mg DAILY [facility] Administration Pravastatin Sodium 80 mg 04/03/23 09:00 04/03/23 08:58 Pravastatin 40 Mg Tablet PO 04/02/24 08:59 80 mg DAILY [place] Administration Prochlorperazine Maleate 10 mg 04/03/23 05:51 04/03/23 05:54 Prochlorperazine Maleate 5 Mg Tablet PO 04/02/24 05:50 10 mg Q8HR PRN Administration Nausea And Vomiting A&P - Hospitalist Assessment/Plan (1) Hyponatremia: Plan 1. Hyponatremia of unclear source Appreciate nephrology recommendations. Currently correcting at an appropriate rate. HCTZ has been held. Urine sodium and osmolality levels suggest SIADH and/or thiazide diuretic contributing. Note that TSH is mildly elevated,will check a T4. 2. Hypokalemia/hypomagnesemia replacement 3. Hypertension Continue losartan 4. DVT prophylaxis SCDs 5. Hypothyroidism Continue 88 mcg daily. Adjust per T4 level 6. Dizziness 7. Nausea Both the symptoms could be attributed to the low sodium on her initial presentation. Will continue telemetry. Do notice a systolic murmur, should dizziness or other cardiac abnormalities occur can consider an echocardiogram. I do not feel she warrants a full syncopal workup at this time. Documented By: Turner Frank DO 04/03/23 Signed By: <Electronically signed by Turner Frank DO> 04/03/231928 [facility] Work Phone: 1(245) 923-156002-12-2024 Consult note Author Gaudencio Romero [facility] April 03, 2023 2:07pm Note Date/Time April 03, 2023 2:07pm [facility] [address] [place] [address] Nephrology Consult Note Signed Patient: Hiram Madrid MR#: [id number] : 1935 Acct:[id number] Age/Sex: 87 / F Adm Date: 4 Loc: Room: [address] [place] [address] Type: ADM IN Attending Dr: Turner Frank DO Copies to: MD Gaudencio Pickreing MD Michael R. Frings, DO~ Providers Consult Date: 04/03/23 Requesting Provider: Turner Frank DO Primary Care Provider: Addy Daniels MD HPI Reason for Consult: Hyponatremia, sodium 117 on admission History of Present Illness: Ms. Madrid is an 87-year-old white female was transferred from [facility] on 04/02/23 for hyponatremia. Patient did complain for nausea with no vomiting or diarrhea. She had back pain and other vague symptoms that prompted her to go [facility]. ER lab showed sodium 116, potassium 2.3 and magnesium 1.6. Otherlabs unremarkable including creatinine 0.7 mg/dL. EKG showed normal sinus rhythm at 86/min with right bundle branch block. Patient was given 2 g magnesium in the emergency room and subsequently was transferred to [facility] for further management. On arrival, patient was placed on gentle hydration with normal saline with 20 mEq potassium chloride at rate of75 cc/h. 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 Sodium has been running in the 120s. Patient has a history of hypertension on hydrochlorothiazide. She denies history of CHF. Patient had nausea however there is no vomiting. No diarrhea. Blood pressure variable between 130s to 150s with no episodes of hypotension. Patient is being seen and examined in her room. She is up in the chair, feels comfortable. No confusion. Serum sodium has improved overnight slowly up to 120 mmol/L as of 10 AM and she has another blood work pending in 2 hours. Patient has no ascites or edema. Lab at [facility] showed TSH 5.6, urine osmolality 298 and urine sodium 79 mmol/L Review of her medications showed that the patient was on amlodipine, losartan, potassium supplement and hydrochlorothiazide 25 mg daily. She also takes magnesium oxide 400 mg twice a day. No SSRI. Review of Systems Review of Systems All other systems reviewed & are negative unless noted below or in HPI [facility] Medical History (Updated 04/03/23 @ 14:00 by Gaudencio Romero MD) Hyponatremia Afib GI bleed Colitis Hypomagnesemia Hyponatremia Problem List clean-up per request of Phys. EHR Cmte Syncope Problem List clean-up per request of Phys. EHR Cmte HTN (hypertension) Problem List clean-up per request of Phys. EHR Cmte Hyperlipidemia Problem List clean-up per request of Phys. EHR Cmte Neuropathy Problem List clean-up per request of Phys. EHR Cmte Thyroid disease Problem List clean-up per request of Phys. EHR Cmte Surgical History (Updated 02/01/23 @ 14:30 by [employer]) History of tonsillectomy Problem List clean-up per request of Phys. EHR Cmte History of salpingo-oophorectomy Problem List clean-up per request of Phys. EHR Cmte Hx of cholecystectomy Problem List clean-up per request of Phys. EHR Cmte History of appendectomy Problem List clean-up per request of Phys. EHR Cmte Family History (Updated 07/29/14 @ 12:15 by Provider Conversion) Father Mother Social History Smoking Status: Never smoker Substance Use Type: None Meds Medications & Allergies Allergies atorvastatin Allergy (Unknown, Verified 02/20/22 09:00) Comment:blisters. Corticosteroids (Glucocorticoids) Allergy (Unknown, Verified 02/20/22 09:00) prednisone Allergy (Verified 08/05/22 19:50) Unknown Reaction Home Medications amlodipine 10 mg tablet (Norvasc) 1 tab PO DAILY 08/06/18 [History Confirmed 04/02/23] levothyroxine 88 mcg tablet (Synthroid) 1 tab PO DAILY 08/06/18 [History Confirmed 04/02/23] losartan 100 mg tablet 1 tab PO DAILY 08/06/18 [History Confirmed 04/02/23] potassium chloride 20 mEq tablet,extended release(part/cryst) (Klor-Con M) 1 tabPO DAILY 08/06/18 [History Confirmed 04/02/23] pravastatin 80 mg tablet 1 tab PO DAILY 08/06/18 [History Confirmed 04/02/23] ondansetron HCl 4 mg tablet 4 mg PO DAILY PRN nausea and vomiting 5 days #5 tabs08/05/22 [Rx Confirmed 04/02/23] hydrochlorothiazide 25 mg tablet 25 mg PO DAILY 04/02/23 [History Confirmed 04/02/23] magnesium oxide 400 mg (241.3 mg magnesium) tablet 400 mg PO BID PRN constipation 04/02/23 [History Confirmed 04/02/23] Active Medications: Active Medications Acetaminophen (Acetaminophen 325 Mg Tablet) 650 mg PO Q4H PRN PRN Reason: Pain Scale 1 - 5 Stop: 04/01/24 19:57 Amlodipine Besylate (Amlodipine 10 Mg Tablet) 10 mg PO DAILY [facility] Stop: 04/02/24 08:59 Last Admin: 04/03/23 08:58 Dose: 10 mg Docusate Sodium (Docusate 100 Mg Capsule) 200 mg PO BID PRN PRN Reason: Constipation Stop: 04/01/24 19:57 Docusate Sodium (Docusate 100 Mg Capsule) 200 mg PO BID [facility] Stop: 04/02/24 08:59 Last Admin: 04/03/23 08:58 Dose: Not Given Hydralazine HCl (Hydralazine 20 Mg/Ml Vial) 10 mg IV-PUSH Q4H PRN PRN Reason: if SBP > 185 Stop: 04/01/24 19:57 Potassium Chloride/Sodium Chloride (0.9 % Nacl-20 Meq Kcl) 1,000 mls @ 75 mls/hr IV .[id number] [facility] Stop: 04/01/24 20:29 Last Admin: 04/02/23 21:56 Dose: 75 mls/hr Levothyroxine Sodium (Levothyroxine 88 Mcg Tablet) 88 mcg PO DAILY@0630 [facility] Stop: 04/02/24 06:29 Last Admin: 04/03/23 05:54 Dose: 88 mcg Losartan Potassium (Losartan 50 Mg Tablet) 100 mg PO DAILY [facility] Stop: 04/02/24 08:59 Last Admin: 04/03/23 08:58 Dose: 100 mg Pravastatin Sodium (Pravastatin 40 Mg Tablet) 80 mg PO DAILY [facility] Stop: 04/02/24 08:59 Last Admin: 04/03/23 08:58 Dose: 80 mg Prochlorperazine Maleate (Prochlorperazine Maleate 5 Mg Tablet) 10 mg PO Q8HR PRN PRN Reason: Nausea And Vomiting Stop: 04/02/24 05:50 Last Admin: 04/03/23 05:54 Dose: 10 mg Exam Physical Exam Vital Signs: Temp Pulse Resp BP Pulse Ox O2 Del Method 36.6 C 72 16 139/68 95 Room Air 04/03/23 04:00 04/03/23 12:00 04/03/23 12:00 04/03/23 12:00 04/03/23 12:00 04/03/23 12:00 Narrative: Constitutional: Looks younger than her stated age, appears comfortable and not in distress HEENT: No pallor or Jaundice Cardiovascular: RRR, normal S1-S2, no gallop or rub, No JVD Respiratory: Good bilateral air entry no wheezing or crackles Gastrointestinal: Soft, non tender, positive bowel sounds Extremities: No edema Skin: No rashes or bruises Musculoskeletal: No joints swellings or inflammation Neurology: Awake, alert, oriented ?3, No focal motor or sensory deficits Psych: Normal mood and affect Results Labs 04/03/23 04:48 04/03/23 10:38 Labs: 04/02/23 04/03/23 04/03/23 20:55 01:50 04:48 BUN 7 6 L 6 L Creatinine 0.59 L 0.59 L 0.58 L Albumin 3.7 04/03/23 04/03/23 08:00 10:38 BUN 5 L 7 Creatinine 0.60 0.63 Albumin Abnormal lab results 3 04/02/23 04/03/23 04/03/23 Range/Units 20:55 01:50 04:48 MCHC 35.8 H (32.0-35.0) g/dL [place] # (Auto) 1.1 H (0.0-0.8) x10E3/uL Sodium 117 L* 119 L* 117 L* (136-145) mmol/L Potassium 3.1 L 2.9 L* 3.0 L (3.5-5.1) mmol/L Chloride 81 L 82 L 81 L (98-107) mmol/L Anion Gap (6.0-15.0) mEq/L BUN 6 L 6 L (7-25) mg/dL Creatinine 0.59 L 0.59 L 0.58 L (0.60-1.20) mg/dL Glucose 122 H 102 H 136 H (70-100) mg/dL Calcium 8.3 L 8.5 L (8.6-10.3) mg/dL Total Protein 6.1 L (6.4-8.9) gm/dL TSH 3rd Generation 5.76 H (0.45-5.33) uIU/mL 3 04/03/23 04/03/23 Range/Units 08:00 10:38 MCHC (32.0-35.0) g/dL [place] # (Auto) (0.0-0.8) x10E3/uL Sodium 118 L* 120 L* (136-145) mmol/L Potassium 3.2 L 3.3 L (3.5-5.1) mmol/L Chloride 82 L 81 L (98-107) mmol/L Anion Gap 16.6 H (6.0-15.0) mEq/L BUN 5 L (7-25) mg/dL Creatinine (0.60-1.20) mg/dL Glucose 121 H 123 H (70-100) mg/dL Calcium (8.6-10.3) mg/dL Total Protein (6.4-8.9) gm/dL TSH 3rd Generation (0.45-5.33) uIU/mL Radiology Impressions Impressions - last 24 hours: Any impression(s) listed above is documentation that was entered by the reading physician into a diagnostic report(s) for Hiram Madrid. I have reviewed the report(s) and am incorporating any findings in the treatment plan of this patient where applicable. A&P - Nephrology Assessment/Plan (1) Hyponatremia: Assessment/Problem Details: Patient presented with severe hyponatremia sodium 116 mmol/L. Review of recordsshowed that she has a chronic hyponatremia with sodium 125 on July 2022 however the patient was asymptomatic and she never had workup. 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 Patient could have also an element of volume depletion. Urine sodium is elevated as she was on diuretics. (2) HTN (hypertension): Assessment/Problem Details: Hypertension treated with multiple blood pressure medications including hydrochlorothiazide. Plan * Since the patient has a chronic hyponatremia and she has no neurological symptoms, will continue gentle hydration aiming to slow correction of hyponatremia 6 to 8 mEq in the first 24-hour. I will continue normal saline with potassium chloride 20 mEq/L at slow rate 75 cc/h with monitoring of serum sodium every 4 hours for the next 24 hours. Should the patient develop rapid correction, will switch to half-normal saline or will give 1 dose of DDAVP. * Continue amlodipine 10 mg daily and losartan 100 mg daily. Blood pressure reasonably controlled for her age. She has no edema and no need for diuretics at this point however if she required diuretics in the future, will replace with furosemide to avoid recurrent hyponatremia. * Monitor renal panel and potassium daily and add supplemental potassium if needed. I appreciate his consultation we will be happy to follow the patient with you during hospital stay Documented By: Gaudencio Romero MD 04/03/23 3835 Signed By: <Electronically signed by MD Gaudencio Romero> 04/03/23 1404 [facility] Work Phone: 1(465) 189-763602-11-2024 History and physical note Author Natividad Gregory [facility] April 02, 2023 8:22pm Note Date/Time April 02, 2023 8:06pm [facility] [address] [place] [address] Hospitalist H&P Signed Patient: Hiram Madrid MR#: [id number] : 1935 Acct:[id number] Age/Sex: 87 / F Adm Date: 4 Loc: Room: [address] [place] [address] Type: ADM IN Attending Dr: Lucy Lockhart MD Copies to: MD Lucy Pickering MD Ruta Semaskiene, MD~ HPI DATE OF EXAMINATION: 04/02/23 CHIEF COMPLAINT: Hyponatremia HISTORY OF PRESENT ILLNESS: 87 years old female was transferred from [facility] for hyponatremia. Itseems like the patient has chronic hyponatremia with multiple admissions but shenever had any workup by nephrology. She came with complaints of nausea but no vomiting no diarrhea and some constipation. Patient has been complaining of this back pain that shoots up to her neck and usually is like burning-like and comes and goes. Denies any abdominal pain. Denied any leg pain or weakness. Patient is known to have chronic hyponatremia for about a year. She did have multiple admissions to the hospital for evaluation, however she does not know the reason. Couple days ago she has been admitted to [facility] and discharged. Since then she still remains quite weak, her legs were giving up and she was falling, complained of some nausea. But denies any abdominal pain. Denies any vomiting. Denies any diarrhea. Complains of constipation. Per daughter he does not eat very well, but patient thinks that she is drinking about 4-5/4 of glasses per day. Denies any shortness of breath any chest pain. Patient has been taking hydrochlorothiazide for years. No new medications recently. Patient has history of hypothyroidism and takes levothyroxine. Also patient does take hydrochlorothiazide together with potassium supplements. Outpatient emergency room evaluation revealed EKG normal sinus with heart rate 86 with right bundle branch block, Sodium 116, potassium 2.3, magnesium 1.5 Patient got magnesium 2 g Vital cell counts 11.5, hemoglobin 13.3, platelets 442, sodium 116, potassium 2.8, chloride 78, bicarbonate 30, anion gap 10, BUN 9, creatinine 0.7, glucose 122, calcium 9.2, magnesium 1.5, bilirubin and liver enzymes normal troponins 7.5 protein 7.1, albumin 3.4 Urinalysis showed pH 8.0, specific gravity 1.015, negative for ketones, protein,glucose, blood, nitrates, bilirubin, urine leukocyte esterase 10 systems are reviewed and are negative apart from that mentioned in H&P General -patient is awake alert oriented ?3, does not appear to be in distress, she is lying in flat position HEENT - dry oropharyngeal mucosa without any ulcers or exudates Cardiovascular -S1 plus S2, with regular rate, without any murmurs, gallops, rubs Pulmonary -clear to auscultation bilaterally Gastrointestinal -abdomen is soft, nondistended, nontender, bowel sounds positive, no rigidity, no rebound Genitourinary -no flank tenderness Musculoskeletal -no back tenderness, no significant joint swelling, full range of motion Neurological -no focal Skin -no significant ulcers, no rash noted Extremities - no edema in bilateral lower extremities noted Psychiatry - appropriate affect Laboratory work up, imaging studies reviewed Previous records in the computer system reviewed [facility] Medical History (Updated 04/02/23 @ 20:21 by Natividad Gregory MD) Hyponatremia Afib GI bleed Colitis Hypomagnesemia Hyponatremia Problem List clean-up per request of Phys. EHR Cmte Syncope Problem List clean-up per request of Phys. EHR Cmte HTN (hypertension) Problem List clean-up per request of Phys. EHR Cmte Hyperlipidemia Problem List clean-up per request of Phys. EHR Cmte Neuropathy Problem List clean-up per request of Phys. EHR Cmte Thyroid disease Problem List clean-up per request of Phys. EHR Cmte Surgical History (Updated 02/01/23 @ 14:30 [address] [employer] [facility]) History of tonsillectomy Problem List clean-up per request of Phys. EHR Cmte History of salpingo-oophorectomy Problem List clean-up per request of Phys. EHR Cmte Hx of cholecystectomy Problem List clean-up per request of Phys. EHR Cmte History of appendectomy Problem List clean-up per request of Phys. EHR Cmte Family History (Updated 07/29/14 @ 12:15 by Provider Conversion) Father Mother Social History Smoking Status: Never smoker Substance Use Type: None Meds Medications and Allergies Allergies atorvastatin Allergy (Unknown, Verified 02/20/22 09:00) Comment:blisters. Corticosteroids (Glucocorticoids) Allergy (Unknown, Verified 02/20/22 09:00) prednisone Allergy (Verified 08/05/22 19:50) Unknown Reaction Home Medications amlodipine 10 mg tablet (Norvasc) 1 tab PO DAILY 08/06/18 [History Confirmed 04/02/23] levothyroxine 88 mcg tablet (Synthroid) 1 tab PO DAILY 08/06/18 [History Confirmed 04/02/23] losartan 100 mg tablet 1 tab PO DAILY 08/06/18 [History Confirmed 04/02/23] potassium chloride 20 mEq tablet,extended release(part/cryst) (Klor-Con M) 1 tabPO DAILY 08/06/18 [History Confirmed 04/02/23] pravastatin 80 mg tablet 1 tab PO DAILY 08/06/18 [History Confirmed 04/02/23] ondansetron HCl 4 mg tablet 4 mg PO DAILY PRN nausea and vomiting 5 days #5 tabs08/05/22 [Rx Confirmed 04/02/23] hydrochlorothiazide 25 mg tablet 25 mg PO DAILY 04/02/23 [History Confirmed 04/02/23] magnesium oxide 400 mg (241.3 mg magnesium) tablet 400 mg PO BID PRN constipation 04/02/23 [History Confirmed 04/02/23] Exam Physical Exam Vital Signs: Temp Pulse Resp BP Pulse Ox O2 Del Method 36.6 C 71 16 165/69 H 96 Room Air 04/02/23 18:46 04/02/23 18:46 04/02/23 18:46 04/02/23 18:46 04/02/23 18:46 04/02/23 18:46 Assessment & Plan Assessment/Plan (1) Hyponatremia: Plan 1. Hyponatremia of unclear source Patient has been taking HCTZ which we will stop Appears to be slightly dry, we will give gentle hydration and recheck BMP Check urinalysis and urine sodium and urine osmolality Per daughter patient has not been having good p.o. intake but patient admits that she is drinking water, however her urine specific gravity was not very diluted, it was at 1.015 She has a history of hypothyroidism and takes levothyroxine, check TSH Adrenal insufficiency unlikely her blood pressure is quite well-controlled and it is at the higher range Continue frequent BMP Consult nephrology 2. Hypokalemia/hypomagnesemia replacement 3. Hypertension continue with home medications 4. DVT prophylaxis SCDs The patient care was discussed with the patient the patient's daughter at the bedside IP vs OBS Justification Based on differential dx, clinical care plan, and risk of adverse events, if untreated, in my clinical judgement this patient requires an acute care setting as: INPATIENT because of an expectation of an over 2 midnight stay. Estimated length of stay (# of days): 3 Documented By: Natividad Gregory MD 04/02/232001 Signed By: <Electronically signed by Natividad Gregory MD> 04/02/232021 [facility] Work Phone: 1(499) 536-233111-22-2023 NoteNoted 7 beat run of NSVT on 1 week holter monitor, along with SVT, PVCs Recommended to continue coreg 25 mg bid, will place 30 day monitor, and obtain treadmill cardiolite stress test for ischemic evaluation.[facility]11-22-2023 NotePt reports that she has had 5 syncopal episodes since this Summer- some while having a BM, and other episodes while just up and walking.[facility]11-22-2023 NoteWill monitor with routine echocardiogram annually unless pt has concerning symptomsUnAvita Health [facility]11-22-2023 NoteRecommended to continue ASA and pravastatinUnAvita Health System [facility]11-22-2023 Note Hypertension is stable Reviewed B/P log and typically in the mornings her b/p with well controlled 120's/70-80, and in the evenings can be up to 140/80 Continue all meds and will add toprolUnAvita Health System [facility] 01-11-2023 NoteContinue pravastatinUnAvita Health System Bucy[facility]11-22-2023 NoteWill monitor with routine echocardiogram annually unless pt has concerning symptomsUnAvita [facility]11-22-2023 NoteWill monitor with routine echocardiogram annually unless pt has concerning symptomsUnAvita Health [facility]11-22-2023 NotePatient here for 3 mo follow up valve disorder and carotid artery stenosis. She has had a few episodes of syncope since last visit. She recently wore Holter monitor. Says Dr. Daniels wants to add metoprolol but she does not want to add another medication. Review of Systems Cardiovascular: Positive for syncope. Hematologic/Lymphatic: Bruises/bleeds easily. All other systems reviewed and are negative.[facility] 01-11-2023 NoteUTP CARDIOLOGY PROGRESS NOTE HPI: Hiram Madrid is a 87 [...] called and was evaluated in ED at [facility]. Admits she has had a couple syncopal episodes in the bathroom while having a BM- last one was at [employer]. States she also has had a couple while just up and walking- normal Day to Day activity. Daughter states that pt is usually out for about 1 minute. Of note patient was direct admitted to the [facility] end of August for electrolyte imbalances low sodium, low potassium, and acute anemia. She was evaluated at [facility] in October for ABD pain/ syncope, [...] The patient states she was shopping in [facility] when she felt the need to have [...] a colonoscopy approximately 5 years ago at [facility]. HPI - Altered Mental Status General Chief [...] was someone in the bathroom in the religion and she have to go back and [...] tablet 3 levothyroxine (Syn (more content not included)...[facility]11-02-2023 Hospital Discharge instructions Patient Education 12/22/2022 12:24:19 [...] occur when a baby is developing in thewomb. These can include problems in the kidneys [...] how long it has been there, and whatcaused it. The goal of treatment is to [...] transplant. Follow these instructions at home: Take [id number] and prescription medicines only as told by [...] provider. Document Revised: 05/26/2020 Document Reviewed: 05/26/2020 [employer] Patient Education 2022 [employer]. Follow Up Care 09/06/2022 13:10:43 With:ABDULLAHI NOONAN, MIKAYLA Pereira, URL Address: [address] [place] [address]. [place] [address] [phone] When: Unknown Comments:6 mos w/ renal fxn (per PCP) [facility] 09-05-2023 NotePt message/ call that she is having increased leg swelling and [...] needs to call for appointment Lesly Alaniz [employer] Division of Cardiology, [facility]- [phone] Pager- [phone] Email- [email or web address]08-25-2023 NoteStable and non pitting currentlyUnAvita [facility] 10-14-2022 NoteCurrently stable Pt to call for any recurrent syncope or concernsUnAvita Health System [facility]08-25-2023 NoteMild on recent echo No concerning symptomsUnAvita Health [facility]08-25-2023 NoteContinue ASA and statinUnAvita Health System [facility] Hospital08-25-2023 NoteHypertension is uncontrolled 160/75- admits this is where her b/p is at home Increase coreg to 25 mg bid, continue losartan 100 mg, hydrochlorothiazide 25 mg, and amlodipine 10 mgUnAvita Health System [facility] Hospital08-25-2023 Note Continue pravastatinUnAvita Health System Bucy[facility] Hospital08-25-2023 NoteNo concerning symptoms Will continue to monitor with echocardiogramUnAvita Health System [facility] 10-14-2022 NoteNo concerning symptoms Will continue to monitor with echocardiogramUnAvita Health System [facility] 10-14-2022 NotePatient here c/o LE edema. Says today they aren't as bad, but she states they're hard and sometimes painful. She has not had lab work since [facility] stay in July 2022. She denies chest pain, lightheadedness, and palpitations. Review of Systems Cardiovascular: Positive for dyspnea on exertion and leg swelling. Hematologic/Lymphatic: Bruises/bleeds easily. All other systems reviewed and are negative.[facility] 10-14-2022 NoteUTP CARDIOLOGY PROGRESS NOTE HPI: Hiram Madrid is a 86 y.o. female here for routine F/U HPI Pt presents for routine follow up carotid and subclavian artery stenosis, aortic valve stenosis, and hypertension. Says she still has constant LE pain with ambulation. She had ECG and labs in Dec 2021. Denies chest pain, SOB, or syncope Of note patient was direct admitted to the [facility] end of August for electrolyte imbalances low [...] Stable and non pitting currently [facility] Chief Complaint: Patient here [...] twice dominic (more content not included)... [facility] No data available for this section [facility] Future Appointments Appointment Date:06/29/2023 09:30:00 AM Scheduled Provider:MIKAYLA WEISS PA-C Location:[facility] Appointment Type:URO Office Visit [facility] Evaluation noteNo assessment information available [facility] Work Phone: Evaluation note* Diagnosis Onset Date Resolution Status HTN (hypertension) acute Hyponatremia acute [facility] Work Phone: Hospital Discharge instructions No data available for this section [facility] Additional Instructions Take Naprosyn as prescribed for mild to moderate pain. Take Keflex as prescribed to prevent infection. Take Zofran as prescribed for nausea while taking oxycodone. Do not drive while taking oxycodone. Take Flomax daily as prescribed. Call the urologist listed below on Monday to schedule follow-up appointment. 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 Advance Directives and Living Will Power of Loan Servicing Specialist Latest Code Status on File Code Status Date Activated Date Inactivated Comments Full Code 11/05/2018 6:34 PM Full Code 11/04/2018 5:08 PM 11/05/2018 6:34 PM Documents on File Type Date Recorded 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 Advance Directives and Livin g Will Advance Directives and Livin g Will 11/06/2018 1:08 AM AD info sheets Power of Loan Servicing Specialist Latest Code Status on File Code Status Date Activated Date Inactivated Comments Full Code 11/15/2018 9:48 PM Full Code 11/15/2018 3:32 PM 11/15/2018 9:48 PM Full Code 11/13/2018 4:05 PM 11/15/2018 3:29 PM Full Code 11/05/2018 6:34 PM 11/05/2018 10:30 PM Full Code 11/04/2018 5:08 PM 11/05/2018 6:34 PM Advance Directive Response Recorded Date/ Time Advance Directives Yes October 16, 2019 11:14am Advance Directive Response Recorded Date/ Time Advance Directives Yes October 16, 2019 10:14am Discharge Instructions * Discharge Instr - Activity* Sommer Dinh RN - 11/05/2018 7:06 PM EDT Up as tolerated safely * Attachments The following attachments cannot be sent through Care Everywhere. * Back Pain ([place]) documented in this encounter* Discharge Instr - [...] at most local grocery stores, pharmacies, and [employer]-stores. ? If you have any questions about [...] Agent's Name Healthcare Agent's Phone Number 11/16/18 1444 No, patient does not have an advance directive for healthcare treatment -- -- -- -- -- 11/15/18 5035 No, patient does not have an advance directive for healthcare treatment -- -- -- -- -- Admitting Physician: Mary Vega MD PCP: Calista Aceves MD Discharging Nurse: Discharging Hospital Unit/Room#: R238/R238-01 Discharging Unit Phone Number: Emergency Contact: Extended Emergency Contact Information Primary Emergency Contact: [facility] Mobile Relation: Spouse Secondary Emergency Contact: Liliya Townsend Mobile Relation: Child Carpentry Teacher needed? No Past Surgical History: Past Surgical History: Procedure Laterality Date APPENDECTOMY BACK SURGERY CHOLECYSTECTOMY LUMBAR FUSION N/A 11/13/2018 PLIF L 3-4-5 DECOMPRESSION L3, L4 performed by Lenny Corral MD at [facility] OR [facility] Right Immunization History: There is [...] Assisted Dressing Independent Toileting Independent Feeding Independent Spa Assistant Manager Independent Med Delivery whole Wound Care Documentation [...] select all that are sent with patient): {[facility] DME Belongings:[id number]} RN SIGNATURE: MANAGEMENT/SOCIAL WORK SECTION Inpatient Status Date: Patient was admitted to Inpatient Acute Rehab 11/15/18 Readmission Risk Assessment Score: Readmission Risk Risk of Unplanned Readmission: 12 Discharging to Facility/ Agency Name: Karan Sosa Address: Fax: Dialysis Facility (if applicable) Name: Address: Dialysis Schedule: Phone: Fax: Steam Box Hand/Welder/Installer signature: ICIAN SECTION Prognosis: Good Condition at [...] this shift. 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 Leisure & Hobbies: Cooking, reading, needlepoint Additional Comments: 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, has been relying more on dtr and spouse due toworsening weakness past few weeks Current Functional Status: ADL Equipment Provided: Sock aid, Waste Reclaimer Feeding: Modified independent Grooming: Independent UE Bathing: [...] glasses for reading Hearing Hearing: Exceptions to WFL Hearing Exceptions: Hard [...] PM Yarely Gordon 11/20/2018 12:35 PM EDT [facility] MUSIC THERAPY Date: 11/20/2018 Patient [...] [x] Yes Location: lower back Ratin/10 Comment(s): ANXIETY ASSESSMENT Before MT: [x] No [...] interested in having music therapy again. [] MT- will attempt to see pt again another day, if time allows. [x] Pt's planned d/c date is before MT-BC is scheduled on unit again. [] Pt NOT interested in having music therapy again. BANG Ramos 11/20/2018 * Roselyn Schroeder CARLA - 11/20/2018 9:59 AM EDT Occupational Therapy Facility/Department: [facility] REHAB Daily Treatment Note NAME: Hiram Madrid [...] 11/20/2018 9:55 AM EDT Occupational Therapy Facility/Department: [facility] RE[facility] Daily Treatment Note NAME: Hiram Madrid [...] device (slide rail) Walk: 6 - Modified Gunn[place] Walks at least 150 feet with an ambulatory device, orthosis or prosthesis OR requires extra amount of time OR there is concern for safety Distance Walked: 200' Wheel Chair: 0 - Activity Not Assessed/Does Not Occur Stairs: 6 - Modified [place] Safely goes up and down at least [...] from Dr. Ellis Holguin D.O., PM&R Attending [facility] [place] [address] [place] * Khanh White LPN - 11/19/2018 6:00 [...] Vasovagal syncope PLAN: Fever leukocytosis observe * Aron Michelle M, OTR/L - 11/19/2018 2:05 PM EDT Occupational Therapy Facility/Department: [facility] RE[facility] Daily Treatment Note NAME: Hiram Madrid [...] EDT Physical Therapy Rehab Treatment Note Facility/Department: [facility] REHAB Room: [place] [address] NAME: Hiram Madrid : 1935 (83 y.o.) [...] PTA, 11/19/18 at 2:52 PM * Dulce Stevens DO - 11/19/2018 11:20 AM EDT Progress Note Patient: Hiram Madrid Unit/Bed: R238/R2- Date of : 1935 Acct: [id number] Admitting Diagnosis: Impaired mobility [Z74.09] Spinal stenosis [...] and tentative discharge home tomorrow. Follows with construction specialist in [place]. 11/18/18: called by staff occupational therapist regarding tachycardia. Pt was unaware of [...] IA, CHF or arrhythmia. Follows with a construction specialist from [place] for carotid artery disease and cardiac murmur. [...] to DC home and F/U with regular construction specialist as outpatient Attending Supervising Physician's Attestation Statement The patient is a 83 y.o. female. I have performed a history and physical examination of the patient. I discussed the case with the physician diploma dental assistant. I reviewed the patient's Past Medical [...] EDT Physical Therapy Rehab Treatment Note Facility/Department: [facility]: Hiram Madrid : 1935 (83 [...] EDT Physical Therapy Rehab Treatment Note Facility/Department: [facility] NAME: Hiram Madrid : 1935 (83 y.o.) [...] Neuromuscular Education Neuromuscular Comments: Pizano Initiated: other HIGH SCHOOL SOCIAL SCIENCE TEACHER finished it: pt scored a 42/56. Bed [...] education: 10 Therapeutic ex: 0 Mikayla Lindsey, HIGH SCHOOL SOCIAL SCIENCE TEACHER, 11/19/18 at 11:59 AM * Khanh [place], COMPUTER METEOROLOGIST - 11/19/2018 9:15 AM EDT Assessment completed. [...] Unit/Bed: R238/R238-01 Date of : 1935 Acct: [id number] Admitting Diagnosis: Impaired mobility [Z74.09] Spinal stenosis of lumbosacral region [M48.07] Admit Date: 11/15/2018 Hospital Day: 4 Current Medications: Scheduled Meds: cephALEXin 500 mg Oral 3 times per day [id number] Topical BID enoxaparin 30 mg Subcutaneous Daily [...] woman from homewith spouse who [facility] with the above deficits which impact her [...] ms QTc Calculation (Bazett) 463 ms P Thompson 58 degrees R Thompson -11 degrees T Thompson 5 degrees Xr Chest Standard (2 Vw) [...] from Dr. Ellis Holguin D.O., PM&R Attending [phone] [facility] Tasha * Rachael Graf LPN - 11/18/2018 4:39 [...] and no guarding. Musculoskeletal: Back: Urine Culture [[id number]] Collected: 11/15/18 1905 Order Status: Completed Specimen: Urine, clean catch Updated: 11/17/18 07 Urine Culture, Routine No growth 24 hours Narrative: ORDERED BY: ADDY COKER SOURCE: Urine Clean Catch COLLECTED: 11/15/18 19:05 ANTIBIOTICS AT DI.: RECEIVED : 11/15/18 19:05 Culture Blood #2 [[id number]] Collected: 11/15/18 1637 Order Status: Completed Specimen: Blood Updated: 11/16/18 1815 Culture, Blood 2 No Growth to date. Any change in status will be called. Narrative: ORDERED BY: ADDY COKER SOURCE: Blood COLLECTED: 11/15/18 16:37 ANTIBIOTICS AT DI.: RECEIVED : 11/15/18 16:42 Culture Blood #1 [[id number]] Collected: 11/15/18 1637 Order Status: Completed Specimen: [...] Unit/Bed: R238/R238-01 Date of : 1935 Acct: [id number] Admitting Diagnosis: Impaired mobility [Z74.09] Spinal stenosis [...] L4 performed by Lenny Corral MD at [facility] OR [facility] Right History reviewed. No pertinent [...] on phone: None Gets together: None Attends protestant service: None Active member of club or organization: None Attends meetings of clubs or organizations: None Relationship status: None Intimate partner violence: Fear of current or ex partner: None Emotionally abused: None Physically abused: None Forced sexual activity: None Other Topics Concern None Social History Narrative None Subjective/HPI: called by staff occupational therapist regarding tachycardia. Pt was unaware of [...] woman from homewith spouse who presents [facility] with the above deficits which impact her [...] up labs. Blanca Holguin D.O., PM&R Attending [phone] [place] [address] [place] * Dana Craig RN - 11/17/2018 5:45 PM EDT Monitor room called, said pt had about 18 sec run of svt up to 218; notified cardio. * Faye Summers PTA - 11/17/2018 4:07 PM EDT Physical Therapy Rehab Treatment Note Facility/Department: [facility] RE[facility] Room: R238/R238-01 NAME: Hiram Madrid : [...] 11/17/2018 2:51 PM EDT Occupational Therapy Facility/Department: [facility] RE[facility] Daily Treatment Note NAME: Hiram Madrid [...] EDT Physical Therapy Rehab Treatment Note Facility/Department: [facility] RE[facility] Room: R238/R238-01 NAME: Hiram Madrid : [...] EDT Physical Therapy Rehab Treatment Note Facility/Department: [facility] RE[facility] Room: [place] [address] NAME: Hiram Madrid : 1935 (83 y.o.) [...] 11/17/2018 8:43 AM EDT Occupational Therapy Facility/Department: [facility] RE[facility] Daily Treatment Note NAME: Hiram Madrid [...] at below status. ADL Equipment Provided: Sock aid;Waste Reclaimer Grooming: Independent UE Bathing: Setup LE Bathing: [...] woman from homewith spouse who presents [facility] with the above deficits which impact her [...] consult,check dopplers Blanca Holguin D.O., PM&R Attending [address] [place] [address] * Jessica Irvin OTR/Lloyd - 11/16/2018 4:14 PM EDT Occupational Therapy Facility/Department: [facility] RE[facility] Daily Treatment Note NAME: Hiram Madrid : 1935 Date of Service: 11/16/2018 Discharge Recommendations: Continue to assess pending progress OT Equipment Recommendations Other: Continue to assess Assessment Performance deficits / Impairments: Decreased functional mobility ;Decreased ADL status;Decreased strength;Decreased balance;Decreased endurance;Decreased high- level IADLs Assessment: Pt. is an 83 year old woman from home with spouse who presents [facility] with the above deficits which impact her [...] Pain: Yes Objective The patient completed the [facility] Mental Status (UMS) Examination on this [...] disorder. Pt's cognition is WFL Results of SLUMS assessment will be shared in team meeting [...] In 1335 Time Out 1400 Minutes 25 Jessica Irvin OTR/Lloyd * Lenny Corral MD - 11/16/2018 4:04 PM EDT Patient: Hiram Madrid Unit/Bed: R238/R238-01 Date of : 1935 Acct: [id number] Admitting Diagnosis: Impaired mobility [Z74.09] Spinal stenosis of lumbosacral region [M48.07] Admit Date: 11/15/2018 Hospital Day: 1 Current Medications: Scheduled Meds: [START ON 11/17/2018] enoxaparin 40 mg Subcutaneous Daily [id number] Topical BID docusate sodium 100 mg Oral [...] IA, CHF or arrhythmia. Follows with a construction specialist from [place] for carotid artery disease and cardiac murmur. [...] L4 performed by Lenny Corral MD at [facility] OR [facility] Right Social History Social History Socioeconomic History [...] on phone: None Gets together: None Attends protestant service: None Active member of club or [...] 100 mg 100 mg Oral BID Shyla T Vizcaino, ENVIRONMENTAL MARKETING REPRESENTATIVE - SUGAR REFINERY SUPERVISOR famotidine (PEPCID) tablet 20 mg 20 mg Oral BID Shyla T Vizcaino, ENVIRONMENTAL MARKETING REPRESENTATIVE - SUGAR REFINERY SUPERVISOR [START ON 11/16/2018] amLODIPine (NORVASC) tablet 10 mg 10 mg Oral Daily Shyla Gross EDY Vizcaino - SUGAR REFINERY SUPERVISOR [START ON 11/16/2018] aspirin EC tablet 81 mg 81 mg Oral Daily Shyla Gross EDY Vizcaino - SUGAR REFINERY SUPERVISOR cephALEXin (KEFLEX) capsule 500 mg 500 mg Oral 3 times per day Shyla Gross BLANK VizcainoN - SUGAR REFINERY SUPERVISOR gabapentin (NEURONTIN) capsule 100 mg 100 mg Oral TID Shyla Gross EDY Vizcaino - SUGAR REFINERY SUPERVISOR [START ON 11/16/2018] levothyroxine (SYNTHROID) tablet 88 mcg 88 mcg Oral Daily Shyla Renato EDY Vizcaino- SUGAR REFINERY SUPERVISOR [START ON 11/16/2018] losartan (COZAAR) tablet 100 mg 100 mg Oral Daily Shyla Gross EDY Vizcaino - SUGAR REFINERY SUPERVISOR oxyCODONE-acetaminophen (PERCOCET) 5-325 MG per tablet 1 tablet 1 tablet Oral Q4H PRN Shyla Gross EDY Vizcaino - SUGAR REFINERY SUPERVISOR potassium chloride (KLOR-CON) packet 20 mEq 20 mEq Oral BID Shyla Gross EDY Vizcaino - SUGAR REFINERY SUPERVISOR pravastatin (PRAVACHOL) tablet 80 mg 80 mg Oral Daily Shyla Gross BLANK VizcainoN - SUGAR REFINERY SUPERVISOR polyethylene glycol (GLYCOLAX) packet 17 g 17 [...] Monitor on tele 7. GI/DVT proph * RadhaleonardoMikayla fleming, HIGH SCHOOL SOCIAL SCIENCE TEACHER - 11/16/2018 2:04 PM EDT Physical Therapy Rehab Treatment Note Facility/Department: [facility] RE[facility] Room: R2/R238-01 NAME: Hiram Madrid : [...] education: 0 Therapeutic ex: 23 Mikayla Lindsey, HIGH SCHOOL SOCIAL SCIENCE TEACHER, 11/16/18 at 3:57 PM * Rhiannon Blank 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 - 11/16/2018 11:21 AM EDT Speech Language [...] from home with spouse who presents [facility] with the above deficits which impact her [...] to increasing pain) Transfer Assistance: Independent Active Research Chief Engineer: Yes Mode of Transportation: Car Type of [...] And Coordinated: Yes Cognition Overall Cognitive Status: [facility] Cognition Comment: Comprehension: 7, Expression: 7, Social Interaction: 7, Problem-Solvin, Memory: 6 Perception Overall Perceptual Status: WF Sensation Overall Sensation Status: WFL ROM LUE [...] Time Individual Concurrent Group Co-treatment Time In 827 Time Out 0934 Minutes 66 Comment: Transfer care to supervising OTR/Lloyd STIANO Lee/Lloyd * Jena Vega, HIGH SCHOOL SOCIAL SCIENCE TEACHER - 11/16/2018 10:35 AM EDT Physical Therapy Rehab Treatment Note Facility/Department: [facility] Room: [place] [address]01 NAME: Hiram Madrid : 1935 (83 y.o.) [...] Jena Vega PTA, 11/16/18 at 11:10 AM Jessenia Hidalgo, CHROME PLATER HELPER - 11/16/2018 9:35 AM EDT [facility] Rehabilitation RECREATIONAL THERAPY Initial Evaluation Date: [...] hearing in left ear) Patient seen at: [id number] Recreation Therapist received referral, chart reviewed and [...] her flower bed. Past leisure interests: Walking, religion, had pets Future leisure interests: Emotional Observed/noted: Cooperative and Pleasant Affect: Appropriate Comments: Today s Session included: Increased Socialization, Provided active listening and Benefits of the patient's leisure and recreation pursuits being utilized as stress relievers Recommendations to utilize Recreation Therapy services, its supported services and groups include: [facility] Rehab Support Group, Pet Therapy, Leisure Education, [...] PT - 11/16/2018 8:20 AM EDT Facility/Department: [facility] Rehabilitation Initial Assessment: Physical Therapy Room: [place] [address] NAME: Hiram Madrid : 1935 Date of [...] L4 performed by Lenny Corral MD at [facility] Right Chart Reviewed: Yes Patient assessed for [...] to increasing pain) Transfer Assistance: Independent Active Research Chief Engineer: Yes Additional Comments: 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, [...] side to initiate log roll long term care pharmacist goals jail goal 1: pt to be indep with bed mobility long term care pharmacist goal 2: pt to be indep with bed transfers long term care pharmacist goal 3: pt to [id number] ft with supervision jail goal 4: pt to navigate 4 steps with SBA long term care pharmacist goal 5: for Pizano balance testing ELOS: Plan weeks: 2 Therapy Time: Individual Time In 1000 Time Out 1030 Minutes 30 Lakisha Trevino PT, 11/16/18 at 12:00 PM * Marybel Ackerman, [facility] - 11/15/2018 11:29 PM EDT Tashia Stark Respiratory Therapy Evaluation Current Order: ACCUNEB .63 Q4 [place] Home Regimen: NONE Ordering Physician: NOEMI Re-evaluation Date: DONE Diagnosis: SEPSIS Patient Status: Stable / [...] puffs by inhalation with spacer [] Ipratropium [place] 0.02% unit dose by aerosol Ipratropium [place] MDI 2 puffs by inhalation with spacer [] Duoneb (Ipratropium + Albuterol) unit dose by aerosol Ipratropium MDI + Albuterol MDI 2 puffs byinhalation w/spacer MDI to Aerosol [] Albuterol Sulfate MDI Albuterol Sulfate 0.083% unit dose by aerosol [] Levalbuterol MDI 2 puffs by inhalation Levalbuterol 1.25 mg unit dose by aerosol [] Ipratropium [place] MDI by inhalation Ipratropium [place] 0.02% unit dose by aerosol [] Combivent (Ipratropium + Albuterol) MDI by inhalation Duoneb (Ipratropium + Albuterol) unit doseby aerosol Treatment Assessment [Frequency/Schedule]: Change frequency to: ACCUNEB Q4 PRN per Protocol, P&T, [facility] Points 0 1 2 3 [...] of lumbosacral region Impaired mobility Vasovagal syncope [facility] [address] [place] [address] Chief Complaint and Reason for Visit Chief Complaint SYNCOPE Chief Complaint hyponatremia hyponatremia hyponatremia Reason for Visit HTN (hypertension) Hyponatremia Additional Source Comments INFORMATION SOURCE (unrecogn ized section and content) DATE CREATED AUTHOR 04/20/2018 [facility] DATE CREATED AUTHOR AUTHOR'S ORGANIZ ATION [facility]/24/[facility] DATE CREATED AUTHOR AUTHOR'S ORGANIZ ATION 06/14/2022 [facility] DATE CREATED AUTHOR AUTHOR'S ORGANIZ ATION 12/23/2022 [facility] DATE CREATED AUTHOR AUTHOR'S ORGANIZ ATION 01/13/[address] [facility] DATE CREATED AUTHOR AUTHOR'S ORGANIZ ATION 04/06/2023 [facility] Reason for Visit (unrecogniz ed section and content) Reason Comments Back Pain Left low back pain r adiates down left leg. Pain flared up last monday Status Reason Specialty Diagnoses / Procedures Referre d By Contact Referred To Contact Diagnoses Intractable back pain Lenny Corral MD [address], [address] [place] [address] [facility] Patient Care team informatio n (unrecognized section and content) Team Status: Active Member Role Status Dates Addy Daniels MD Primary Care Provider Active Team Status: Inactive Member Role Status Dates Addy Daniels MD Primary Care Provider Active Camacho Ladd DO Emergency Provider Active Team Status: Inactive Member Role Status Dates Addy Daniels MD Primary Care Provider Active Start: April 02, 2023 End: April 06, 2023 Lucy Lockhart MD Admit Provider Active Start: April 02, 2023 End: April 06, 2023 Gaudencio Romero MD Other Provider Active Start: [facility] 2023 End: April 06, 2023 KAMILA Escobar Other Provider Active Start: April 02, 2023 End: April 06, 2023 Fiona Magana MD Other Provider Active Start: [facility] 2023 End: April 06, 2023 Cachorro Real MD Other Provider Active Star t: April 02, 2023 End: April 06, 2023 Warner Sood MD Other Provider Active Start: April 02, 2023 End: April 06, 2023 Boni Choi MD Other Provider Active Start: [facility] 2023 End: April 06, 2023 Turner Frank DO Attending Provider Active St art: April 02, 2023 End: April 06, 2023 Team Status: Active Member Role Status Dates Addy Daniels MD Primary Care Provider Active Start: April 02, 2023 Lucy Lockhart MD Admit Provider, Other Provider Act kimberlee Start: April 02, 2023 Natividad Gregory MD Attending Provider Active S tart: April 02, 2023 Team Status: Active Member Role Status Dates Addy Daniels MD Primary Care Provider Active Start: April 03, 2023 Lucy Lockhart MD Admit Provider Active Start: April 03, 2023 Gaudencio Romero MD Attending Provider, Other Provider Active Start: April 03, 2023 KAMILA Escobar Other Provider Active Start: April 03, 2023 Fiona Magana MD Other Provider Active Start: Romelia anne 2023 Cachorro Real MD Other Provider Active Star t: April 03, 2023 Warner Sood MD Other Provider Active Start: April 03, 2023 Boni Choi MD Other Provider Active Start: F tomasz 2023 Turner Frank DO Other Provider Active Start: April 03, 2023 Goals (unrecognized section and content) Goals may [...] BE BASED ON THE PRIMARY CLINICAL RECORDS. [facility]. provides no warranty or guarantee of the accuracy or completeness of information in this document.
[2023-04-17 10:29] LABS: Basophils Absolute Auto 0.1 10^3/uL (0.0-0.1); Basophils Percent Auto 0.5 % (0.2-2.0); Eosinophils Percent Auto 0.2 % (0.9-7.0); Hematocrit 40.3 % (36.0-48.0); Hemoglobin 13.5 g/dL (12.0-16.0); Immature Granulocytes Abs Auto 0.05 10^3/uL (0.00-0.03); Immature Granulocytes Pct Auto 0.5 % (0.0-0.5); Lymphocytes Absolute Auto 1.4 10^3/uL (1.2-3.8); Lymphocytes Percent Auto 14.1 % (20.5-60.0); Mean Corpuscular HGB Conc 33.5 g/dL (29.9-35.2); Mean Corpuscular Hemoglobin 31.3 pg (26.7-34.0); Mean Corpuscular Volume 93.5 fL (81.0-99.0); Mean Platelet Volume 7.9 fL (9.5-13.5); Monocytes Absolute Auto 0.5 10^3/uL (0.3-0.8); Monocytes Percent Auto 4.5 % (1.7-12.0); Neutrophils Absolute Auto 8.2 10^3/uL (1.4-6.5); Neutrophils Percent Auto 80.2 % (43.0-75.0); Platelet Count 503 10^3/uL (150-450); Red Blood Count 4.31 10^6/uL (4.20-5.40); Red Cell Distribution Width 13.1 % (11.0-15.0); White Blood Count 10.2 10^3/uL (4.0-11.0)
[2023-04-17 10:45] LABS: Magnesium 1.8 mg/dL (1.8-2.4)
--- NOTE | 2023-04-17 10:45 | ED.DIZZY1 ---
HPI - Dizziness General Chief Complaint: Dizziness Stated Complaint: DIZZY Time Seen by Provider: 04/17/23 09:50 Source: patient Mode of arrival: Wheelchair History of Present Illness HPI Narrative: The patient was just evaluated within the last 10 days for hyponatremia is coming to us from her primary care office after her blood pressure was uncontrolled. The patient have no symptoms she did had some mild headache no other complaints Related Data Home Medications Medication Instructions Recorded Confirmed levothyroxine 88 mcg tablet 88 mcg PO QDAY 08/10/22 04/02/23 losartan 100 mg tablet 100 mg PO QDAY 08/10/22 04/02/23 potassium chloride 20 mEq 20 meq PO TID 08/10/22 04/02/23 tablet,extended release pravastatin 80 mg tablet 80 mg PO QDAY 08/10/22 04/02/23 magnesium oxide 400 mg (241.3 mg 400 mg PO BID PRN constipation 02/10/23 04/02/23 magnesium) tablet hydrochlorothiazide 25 mg tablet 25 mg PO DAILY 03/28/23 04/02/23 ondansetron HCl 4 mg tablet 4 mg PO Q6H PRN nausea and vomiting 04/02/23 04/02/23 Previous Rx's Medication Instructions Recorded pantoprazole 40 mg tablet,delayed 40 mg PO DAILY #30 tabs 08/17/22 release (Protonix) amlodipine 10 mg tablet 10 mg PO DAILY #30 tabs 04/17/23 carvedilol 3.125 mg tablet 3.125 mg PO BID #30 tabs 04/17/23 Allergies Allergy/AdvReac Type Severity Reaction Status Date / Time atorvastatin Allergy Severe HIVES Verified 04/02/23 13:58 prednisone Allergy Severe Rash Verified 04/02/23 13:58 Review of Systems ROS Status of ROS 10 or more systems reviewed and unremarkable except as noted in history and below [facility] Medical History (Updated 04/17/23 @ 12:01 by Dorene Zamora MD) Acute hyponatremia ?E87.1 - Hypo-osmolality and hyponatremia (ICD-10) Hypokalemia ?E87.6 - Hypokalemia (ICD-10) Syncope, vasovagal ?R55 - Syncope and collapse (ICD-10) Hypochloremia ?E87.8 - Other disorders of electrolyte and fluid balance, not elsewhere classified (ICD-10) Acute hypokalemia ?E87.6 - Hypokalemia (ICD-10) Contusion of hip, left ?S70.02XA - Contusion of left hip, initial encounter (ICD-10) Fall ?W19.XXXA - Unspecified fall, initial encounter (ICD-10) COVID ?U07.1 - COVID-19 (ICD-10) Hyponatremia ?E87.1 - Hypo-osmolality and hyponatremia (ICD-10) Hypomagnesemia ?E83.42 - Hypomagnesemia (ICD-10) Colitis ?K52.9 - Noninfective gastroenteritis and colitis, unspecified (ICD-10) GI bleed ?K92.2 - Gastrointestinal hemorrhage, unspecified (ICD-10) Elevated blood pressure reading ?R03.0 - Elevated blood-pressure reading, without diagnosis of hypertension (ICD-10) Back pain with history of spinal surgery ?M54.9 - Dorsalgia, unspecified (ICD-10) ?Z98.890 - Other specified postprocedural states (ICD-10) Thyroid disease ?E07.9 - Disorder of thyroid, unspecified (ICD-10) Syncope ?R55 - Syncope and collapse (ICD-10) Neuropathy ?G62.9 - Polyneuropathy, unspecified (ICD-10) Kidney stones ?N20.0 - Calculus of kidney (ICD-10) Hypertension ?I10 - Essential (primary) hypertension (ICD-10) Hyperlipidemia ?E78.5 - Hyperlipidemia, unspecified (ICD-10) Hydronephrosis ?N13.30 - Unspecified hydronephrosis (ICD-10) Hard of hearing ?H91.90 - Unspecified hearing loss, unspecified ear (ICD-10) Atrial fibrillation ?I48.91 - Unspecified atrial fibrillation (ICD-10) Arthritis ?M19.90 - Unspecified osteoarthritis, unspecified site (ICD-10) Acute hyponatremia ?E87.1 - Hypo-osmolality and hyponatremia (ICD-10) Orthostasis ?I95.1 - Orthostatic hypotension (ICD-10) Syncope due to orthostatic hypotension ?I95.1 - Orthostatic hypotension (ICD-10) Surgical History History of tonsillectomy ?Z90.89 - Acquired absence of other organs (ICD-10) H/O colonoscopy ?Z98.890 - Other specified postprocedural states (ICD-10) Hx of cholecystectomy ?Z90.49 - Acquired absence of other specified parts of digestive tract (ICD-10) History of cataract extraction ?Z98.49 - Cataract extraction status, unspecified eye (ICD-10) History of salpingoophorectomy ?Z90.79 - Acquired absence of other genital organ(s) (ICD-10) ?Z90.721 - Acquired absence of ovaries, unilateral (ICD-10) History of appendectomy ?Z90.49 - Acquired absence of other specified parts of digestive tract (ICD-10) Family History Mother Family history of CHF (congestive heart failure) Father Lupus Brother Family history of myocardial infarction Family history of stroke Other Arthritis Family history of hypertension Social History Within the past year, how often did you have a drink containing alcohol: never Score interpretation: A score less than 3 is consistent with normal alcohol consumption. 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 Highest level of school completed/degree received: 9th grade Are you now , , , , never or living with a partner: In a typical week, how many times do you talk on the telephone with family, friends, or neighbors: 3 or more times per week How often do you get together with friends or relatives: 3 or more times per week How often do you attend scientologist or moravian services: 4 or more times per year Do you belong to any clubs or organizations such as scientologist groups unions, fraternal or athletic groups, or school groups: yes Total score: 3 Score interpretation: A score of greater than or equal to 2 indicates the lowest level of social isolation. Little interest or pleasure in doing things: not at all Feeling down, depressed, or hopeless: not at all Feel stressed/tense/nervous/anxious/difficulty sleeping: not at all Life stressors: recent of family or friend Do you think of yourself as: straight/heterosexual Gender Identity: female Exam Narrative Exam Narrative: Nurses notes and vital signs reviewed and patient is not hypoxic. General: Well-appearing and in no apparent distress. Skin: Warm, dry, no pallor noted. No rash. Head: Normocephalic, atraumatic. Neck: Supple, non-tender. Eye: Pupils are equal, round and EOMI. No scleral icterus. Ears, Nose, Mouth, and Throat: TM are clear, no nasal mucosal hypertrophy. Oral mucosa is moist, no posterior oropharynx erythema, uvula is mid-line Cardiovascular: Regular Rate and Rhythm without murmur, gallop or rub. Respiratory: No accessory muscle use or respiratory distress. Lungs are clear to auscultation, no wheezing, rales or rhonchi Chest Wall: no tenderness Back: No midline thoracic or lumbar vertebral tenderness. No CVA tenderness Musculoskeletal: normal ROM, no calf or popliteal tenderness, no lower extremity edema/swelling GI: Abdomen is soft, non-distended. Normal bowel sounds. No masses appreciated. No tenderness to palpation. No rebound, guarding, or rigidity noted. Neurological: A&O x4. No cranial nerve dysfunction observed. No truncal ataxia. Moves all extremities. Sensation intact. Psychiatric: Cooperative and interactive. Normal mood and affect. Constitutional Vital Signs, click to edit/add: Last Vital Signs Temp 98 F 04/17/23 09:55 Pulse 82 04/17/23 11:00 Resp 22 04/17/23 11:00 BP 184/72 H 04/17/23 11:00 Pulse Ox 97 04/17/23 11:00 O2 Del Method Room Air 04/17/23 09:55 Course Vital Signs Vital signs: Vital Signs Temperature 98 F 04/17/23 09:55 Pulse Rate 82 04/17/23 09:55 Respiratory Rate 20 04/17/23 09:55 Blood Pressure 181/75 H 04/17/23 09:55 Pulse Oximetry 98 04/17/23 09:55 Oxygen Delivery Method Room Air 04/17/23 09:55 Temperature 98 F 04/17/23 09:55 Pulse Rate 82 04/17/23 11:00 Respiratory Rate 22 04/17/23 11:00 Blood Pressure 184/72 H 04/17/23 11:00 Pulse Oximetry 97 04/17/23 11:00 Oxygen Delivery Method Room Air 04/17/23 09:55 MDM - Dizziness MDM Narrative Medical decision making narrative: The patient EKG showing sinus rhythm with a heart rate of [address] elevation or depression The patient CBC shows no acute significant pathology her sodium is 132 which is an improvement to her baseline The patient blood pressure medication plan to be 10 mg amlodipine when she was discharged from [facility] after stopping hydrochlorothiazide but she is taking only 5 mg daily and right now I did speak with the primary care doctor will resume 10 mg daily of amlodipine as well as 3.125 mg carvedilol twice daily. The patient is to follow up with primary care physician in next 2-3 days or to return to the emergency department should any of the signs or symptoms worsen or new symptoms develop. The patient agrees with the following Diagnosis and Treatment plan and the patient will be discharged home. Lab Data Labs: Lab Results 04/17/23 Range/Units 10:15 WBC 10.2 (4.0-11.0) 10^3/uL RBC 4.31 (4.20-5.40) 10^6/uL Hgb 13.5 (12.0-16.0) g/dL Hct 40.3 (36.0-48.0) % MCV 93.5 (81.0-99.0) fL MCH 31.3 (26.7-34.0) pg MCHC 33.5 (29.9-35.2) g/dL RDW 13.1 (11.0-15.0) % Plt Count 503 H (150-450) 10^3/uL MPV 7.9 L (9.5-13.5) fL Neut % (Auto) 80.2 H (43.0-75.0) % Lymph % (Auto) 14.1 L (20.5-60.0) % [place] % (Auto) 4.5 (1.7-12.0) % Eos % (Auto) 0.2 L (0.9-7.0) % Baso % (Auto) 0.5 (0.2-2.0) % Neut # (Auto) 8.2 H (1.4-6.5) 10^3/uL Lymph # (Auto) 1.4 (1.2-3.8) 10^3/uL [place] # (Auto) 0.5 (0.3-0.8) 10^3/uL Eos # (Auto) 0.0 (0.0-0.7) 10^3/uL Baso # (Auto) 0.1 (0.0-0.1) 10^3/uL Abs Immat Gran (auto) 0.05 H (0.00-0.03) 10^3/uL Imm/Tot Granulo (auto) 0.5 (0.0-0.5) % Sodium 132 L (136-145) mmol/L Potassium 3.8 (3.5-5.1) mmol/L Chloride 92 L (98-107) mmol/L Carbon Dioxide 27.1 (21.0-32.0) mmol/L Anion Gap 16.7 BUN 9.0 (7.0-18.0) mg/dL Creatinine 0.63 (0.55-1.02) mg/dL Est GFR ( Amer) >60 (>=60) Est GFR (Non-Af Amer) >60 (>=60) BUN/Creatinine Ratio 14.3 Glucose 122 H (74-106) mg/dL Calcium 10.1 (8.5-10.1) mg/dL Magnesium 1.8 (1.8-2.4) mg/dL Total Bilirubin 0.6 (0.2-1.0) mg/dL AST 20 (15-37) U/L ALT 23 (14-59) U/L Alkaline Phosphatase 80 (46-116) U/L Troponin I High Sens 7.3 (4.0-51.3) pg/mL Total Protein 8.2 (6.4-8.2) g/dL Albumin 3.9 (3.4-5.0) g/dL Globulin 4.3 g/dL Albumin/Globulin Ratio 0.9 Discharge Plan Discharge Chief Complaint: Dizziness Clinical Impression: Hypertension Qualifiers: Hypertension type: unspecified Qualified Code(s): I10 - Essential (primary) hypertension Patient Disposition: Home, Self-Care Time of Disposition Decision: 12:01 Condition: Good Prescriptions / Home Meds: New carvedilol 3.125 mg tablet 3.125 mg PO BID Qty: 30 0RF Rx Instructions: must administer with a meal/food amlodipine 10 mg tablet 10 mg PO DAILY Qty: 30 0RF Discontinued carvedilol [Coreg] 12.5 mg tablet 12.5 mg PO Q12H Qty: 60 11RF Rx Instructions: must administer with a meal/food amlodipine 5 mg tablet 5 mg PO DAILY Qty: 30 11RF No Action levothyroxine 88 mcg tablet 88 mcg PO QDAY losartan 100 mg tablet 100 mg PO QDAY pravastatin 80 mg tablet 80 mg PO QDAY potassium chloride 20 mEq tablet extended release 20 meq PO TID pantoprazole [Protonix] 40 mg tablet,delayed release (DR/EC) 40 mg PO DAILY Qty: 30 11RF magnesium oxide 400 mg (241.3 mg magnesium) tablet 400 mg PO BID PRN (Reason: constipation) hydrochlorothiazide 25 mg tablet 25 mg PO DAILY ondansetron HCl 4 mg tablet 4 mg PO Q6H PRN (Reason: nausea and vomiting) Instructions: Hypertension (ED) Stand Alone Forms: Portal Instructions Referrals: Addy Clemente MD [Primary Care Provider] - 1 week
[2023-04-17 11:01] LABS: Alanine Aminotransferase 23 U/L (14-59); Albumin Globulin Ratio 0.9; Albumin Level 3.9 g/dL (3.4-5.0); Alkaline Phosphatase 80 U/L (46-116); Anion Gap 16.7; Aspartate Amino Transferase 20 U/L (15-37); BUN Creatinine Ratio 14.3; Bilirubin Total 0.6 mg/dL (0.2-1.0); Calcium 10.1 mg/dL (8.5-10.1); Carbon Dioxide 27.1 mmol/L (21.0-32.0); Chloride 92 mmol/L (98-107); Estimated GFR (African America >60 (>=60); Estimated GFR (Non-African Ame >60 (>=60); Globulin 4.3 g/dL; Glucose 122 mg/dL (74-106); Potassium 3.8 mmol/L (3.5-5.1); Sodium 132 mmol/L (136-145); Total Protein 8.2 g/dL (6.4-8.2); Troponin I High Sensitivity 7.3 pg/mL (4.0-51.3)
[2023-04-17] MEDS: ACETAMINOPHEN 325 MG TABLET 650 MG PO (11:02)
[2023-04-17] MEDS: AMLODIPINE BESYLATE 5 MG TABLET PO (12:29)
== END 2023-04-17 12:44 | disposition home or self-care (01) ==
PROVIDERS: Emergency Provider Emergency Medicine; PCP Family Medicine
DX: I10 Essential (primary) hypertension (principal); E78.5 Hyperlipidemia, unspecified; H91.90 Unspecified hearing loss, unspecified ear; I48.91 Unspecified atrial fibrillation; M19.90 Unspecified osteoarthritis, unspecified site; Z90.49 Acquired absence of other specified parts of digestive tract; E07.9 Disorder of thyroid, unspecified; Z86.16 Personal history of COVID-19; Z87.442 Personal history of urinary calculi; G62.9 Polyneuropathy, unspecified
CPT/HCPCS: 36415; 80053; 83735; 84484; 85025; 93005; 99284

== ENCOUNTER 2023-04-26 11:44 | Outpatient (REF) | payer MEDICARE, OTHER, SELFPAY ==
[2023-04-26 13:19] LABS: Alanine Aminotransferase 19 U/L (14-59); Albumin Level 3.4 g/dL (3.4-5.0); Alkaline Phosphatase 71 U/L (46-116); Anion Gap 13.7; Aspartate Amino Transferase 16 U/L (15-37); BUN Creatinine Ratio 13.8; Bilirubin Total 0.4 mg/dL (0.2-1.0); Calcium 9.1 mg/dL (8.5-10.1); Carbon Dioxide 26.5 mmol/L (21.0-32.0); Chloride 91 mmol/L (98-107); Estimated GFR (African America >60 (>=60); Estimated GFR (Non-African Ame >60 (>=60); Globulin 3.4 g/dL; Glucose 80 mg/dL (74-106); Potassium 4.2 mmol/L (3.5-5.1); Sodium 127 mmol/L (136-145); Total Protein 6.8 g/dL (6.4-8.2)
== END 2023-04-26 11:45 | disposition home or self-care (01) ==
LOC: LAB 11:44
PROVIDERS: PCP Family Medicine; Visit Provider Family Medicine
DX: E87.1 Hypo-osmolality and hyponatremia (principal)
CPT/HCPCS: 36415; 80053

== ENCOUNTER 2023-05-02 13:36 | Outpatient (OUT) | payer MEDICARE, OTHER, SELFPAY ==
[2023-05-02 14:21] LABS: Anion Gap 12.9; BUN Creatinine Ratio 9.4; Calcium 9.1 mg/dL (8.5-10.1); Carbon Dioxide 26.9 mmol/L (21.0-32.0); Chloride 97 mmol/L (98-107); Estimated GFR (African America >60 (>=60); Estimated GFR (Non-African Ame >60 (>=60); Glucose 142 mg/dL (74-106); Potassium 3.8 mmol/L (3.5-5.1); Sodium 133 mmol/L (136-145)
== END 2023-05-02 13:37 | disposition home or self-care (01) ==
LOC: LAB 13:38
PROVIDERS: PCP Family Medicine; Visit Provider Family Medicine
DX: E87.1 Hypo-osmolality and hyponatremia (principal)
CPT/HCPCS: 36415; 80048

== ENCOUNTER 2023-05-05 10:46 | Outpatient (REF) | payer MEDICARE, OTHER, SELFPAY ==
--- OUTSIDE RECORDS SUMMARY | 2023-05-05 10:51 | XMS_ITS | CCD ---
Author Name Unknown Address [address] [facility] [address] [facility] [address] [place] [address] Organization [facility] Care Team Providers Care Rn Examiner Name Role Phone PHYSICIAN, DEFAULT Admitting Unavailable [...] Care Provider CALISTA ACEVES Primary Care Physician [phone] DR VALERIE DARDEN Consulting Unavailable JEREMIAH ., DR BOLAÑOS Primary Care Unavailable ADELSO, DR PADILLA Attending Unavailable ADELSO, DR PADILLA Admitting Unavailable CARLAY ., DR BOLAÑOS Primary Care Unavailable LAKSHMIPATHY ., TYLER Attending Kerry vailable LAKSHMIPATHY ., TYLER Admitting Kerry vailable HOYousuf ., [...] Unavailable MD Addy Daniels Primary Care Provider DO Camacho Ladd Emergency Provider [facility] Addy Euceda Primary Care Physician VALERIE DARDEN Attending Unavailable LESLY ALANIZ Attending Unavailable LESLY ALANIZ Attending Unavailable MD Addy Daniels Primary Care Provider MD Lucy Lockhart Admit Provider [phone] MD Gaudencio Romero Other Provider KAMILA Pearce Other Provider Unavailable MD Fiona Magana Other Provider MD Cachorro Real Other Provider [phone] MD Warner Sood Other Provider MD Boni Choi Other Provider DO Turner Frank Attending Provider MD Turner Nielsen Emergency Provider [phone] Addy Daniels Primary Care Unavailable Camacho Ladd Admitting Unavailable Camacho Ladd Attending Unavailable Raymond Harrison Admitting Unavailable Raymond Harrison Attending Unavailable Addy Daniels Primary Care Unavailable Addy Daniels Primary Care Unavailable Lucy Lockhart Admitting Unavailable Turner Frank Attending Unavailable Elclarence, Gaudencio Consulting Unavailable Katie Pearce Consulting Unavailable ChinoFiona lorenzo Consulting Unavailable Singhshyla, Cachorro Consulting Unavailable Barrie, Warner Consulting Unavailable Boni Choi Consulting Unavailable Turner Nielsen Attending Unavailable Addy Daniels Primary Care Unavailable Turner Nielsen Admitting Unavailable Raymond HARRISON Attending Unavailable MIKAYLA WEISS Attending Unavailable Raymond HARRISON Attending Unavailable Turner DOSS Attending Unavailable Addy Daniels Referring Unavailable Raymond HARRISON Attending Unavailable MIKAYLA WEISS Attending Unavailable Allergies Allergy Classification Reported Allergen(s) Allergy Type Date of Onset Reaction(s) Facility (8 sources) predniSONE; Translations: [prednisone] Drug Allergy 8 Hives, Eruption of skin (disorder) [place], [place] (2 sources) predniSONE Drug Allergy 7 [facility] (6 sources) atorvastatin; Translations: [atorvastatin] Drug Allergy 3 Unknown (qualifier value), Weal (disorder) [facility] (3 sources) Ibuprofen; Translations: [ibuprofen] Drug Allergy Unknown (qualifier value), Stomach ache (finding) [facility] (3 sources) Corticosteroids; Translations: [Corticosteroids (Glucocorticoids )] Allergy to substance 3 Unknown Reaction [facility] (1 source) atorvastatin Drug Allergy 4 [facility] (1 source) predniSONE Drug Allergy 4 [facility] Medications Current Medications Medication Drug Class(es) [...] nebulizer solution amLODIPine 10 mg oral tablet (10 sources) Dihydropyridine Calcium Channel Yadira Start: 08-06-2018 End: 04-06-2023 take 1 tablet by mouth once daily amLODIPine 10 mg Tab 10 mg = 1 tab(s), Oral, Daily, Refills(s) 0 Start Date: 08/09/22 Status: Ordered aspirin 81 mg oral capsule (8 sources) Platelet Aggregation Inhibitor, Nonsteroidal Anti-inflammatory Drug [...] Antibacterial, Polymyxin-class Antibacterial Start: 11-16-2018 End: 11-18-2018 vgitnjsi-napzhwblae-aagiiinm n (NEOSPORIN) ointment carvedilol 6.25 mg oral tablet (2 sources) alpha-Adrenergic Yadira, beta-Adrenergic Yadira Start: 05-03-2023 take 1 tablet by mouth twice daily carvedilol 6.25 mg Tab 6.25 mg = 1 tab(s), Oral, BID, Refills(s) 0 Start Date: 05/03/23 Status: Ordered Start: 08-10-2022 carvedilol Ora l Start Date: 08/10/22 Status: Ordered cinnamon oil liquid 1 drop (1 source) Start: 11-15-2018 cinnamon oil liquid 1 drop citalopram 10 mg oral tablet (1 source) Serotonin Reuptake Inhibitor Start: 04-19-2023 take 1 tablet by mouth once daily CeleXA 10 mg Tab 10 mg = 1 tab(s), Oral, Daily, Refills(s) 0 Start Date: 04/19/23 Status: Ordered docusate sodium 100 mg oral capsule (1 [...] lactulose (CHRONULAC) 10 GM/15ML solution 20 g levothyroxine sodium 0.088 mg oral tablet (10 sources) l-Thyroxine Start: 08-09-2022 take 1 tablet by mouth once daily levothyroxine 88 mcg (0.088 mg) Tab 88 mcg = 1 tab(s), Oral, Daily, Refills(s) 0 Start Date: 08/09/22 Status: Ordered Start: 08-06-2018 take 1 tablet by neil once daily Levothyroxine (Synthroid) 88 mcg Tablet Active 1 TAB PO Daily August 05, 2018 11:00pm End: 11-19-2018 levothyroxine (SYNTHROID) 10 0 MCG tablet Take 88 mcg by mouth Daily 0 11/19/2018 Discontinued (Stop Taking at Discharge) losartan potassium 100 mg oral tablet (9 sources) Angiotensin 2 Receptor Yadira Start: 11-16-2018 take 100 mg by mouth once daily 100 mg, Oral, DAILY, First dose on Mon11/16/18 at 0900 Start: 11-05-2018 losartan (COZA AR) tablet 100 mg Start: 08-06-2018 take 1 tablet by mouth once da senthil losartan 100 mg Tab 100 mg = 1 tab(s), Oral, Daily, Refills(s) 0 Start Date: 08/09/22 Status: Ordered magnesium oxide 400 mg oral tablet (3 sources) Start: 04-19-2023 take 1 tablet by mouth three times daily magnesium oxide 400 mg Tab 400 mg = 1 tab(s), Oral, TID, Refills(s) 0 Start Date: 04/19/23 Status: Ordered Start: 04-02-2023 take 400 mg by mouth twice dejon ly Magnesium Oxide Active 400 MG PO Twice daily April 02, 2023 12:00am 1 ml morphine sulfate 4 mg/ml cartridge (2 sources) Opioid Agonist Start: 11-04-2018 morphine injec tion 4 mg Start: 11-04-2018 End: 11-04-2018 morphine (PF) injection 4 mg ondansetron 4 mg oral tablet (5 sources) Serotonin-3 Receptor Antagonist Start: 08-05-2022 take 4 mg by mouth once daily Ondansetron Hcl Active 4 MG PO Daily 5 August 04, 2022 11:00pm Start: 11-05-2018 4 mg, Intraven ous, EVERY 6 HOURS PRN, Nausea, Starting 11/05/18 at 1830 Start: 11-04-2018 End: 11-04-2018 ondansetron (ZOFRAN) injecti on 4 mg pantoprazole 40 mg delayed release oral tablet (3 sources) Proton Pump Inhibitor Start: 04-19-2023 take 1 tablet by mouth once daily Pantoprazole [address] Tab 40 mg = 1 tab(s), Oral, Daily, Refills(s) 0 Start Date: 04/19/23 Status: Ordered Start: 04-04-2023 take 40 mg by mouth once daily Pantoprazole Active 40 MG PO Daily at 629April 04, 2023 12:00am polyethylene glycol 3350 41681 mg powder for oral solution (1 source) Osmotic Laxative Start: 11-15-2018 polyethylene glycol (GLYCOLAX) packet 17 g Potassium Chloride (10 sources) Start: 08-10-2022 Potassium Chlo ride (Fnq-Iuao-Idn 10) 20 mEq, Oral, TID Start Date: 08/10/22 Status: Ordered Start: 08-10-2022 Potassium Chlo ride (Qgo-Ikdz-Vfj 10) mEq, Oral, BID Start Date: 08/10/22 [...] TAB PO Daily August 05, 2018 11:00pm pravastatin sodium 80 mg oral tablet (9 sources) HMG-CoA Reductase Inhibitor Start: 08-06-2018 take 1 tablet by mouth once daily pravastatin 80 mg Tab 80 mg = 1 tab(s), Oral, Daily, Refills(s) 0 Start Date: 08/09/22 Status: Ordered sennosides, prison 8.6 mg oral tablet (1 source) Start: 11-15-2018 senna (SENOKOT ) tablet 8.6 mg 3 ml sodium chloride 9 mg/ml injection (4 sources) Start: 11-05-2018 10 mL, Intravenous, EVERY 12 HOURS SCHEDULED (2 times per [...] Sig (Original) cephalexin 500 mg oral capsule (6 sources) Cephalosporin Antibacterial Start: 08-05-2022 End: 04-02-2023 take 500 mg by mouth twice daily Cephalexin Discontinued 500 MG PO Twice daily 14 7 August 04, 2022 11:00pm April 02, 2023 6:53pm [...] # 2 tab(s), Refills(s) 0, Pharmacy: [facility], 155, cm, 08/10/22 9:03:00 EDT, Height/Length Dosing, 65, kg, 08/10/22 9:03:00 EDT, Weight Dosing Start Date: 08/30/22 Status: Ordered gadoteridol (PROHANCE) injection 15 mL (1 source) Start: 11-05-2018 End: 11-05-2018 gadoteridol (PROHANCE) injection 15 mL hydroCHLOROthiazide 25 mg oral tablet (3 sources) Thiazide Diuretic Start: 04-02-2023 End: 04-06-2023 take 25 mg by mouth once daily Hydrochlorothiazide Discontinued 25 MG PO Daily April 02, 2023 12:00am April 06, 2023 12:07pm Start: 08-10-2022 hydrochlorothi azide Oral, Daily Start Date: 08/10/22 Status: Ordered 1 ml ketorolac tromethamine 15 mg/ml cartridge (1 source) Nonsteroidal Anti-inflammatory Drug, Cyclooxygenase Inhibitor Start: 11-04-2018 End: 11-04-2018 ketorolac (TORADOL) injection 15 mg 10 ml lidocaine hydrochloride 20 mg/ml injection (2 sources) Antiarrhythmic, Amide Local Anesthetic Start: 11-20-2018 End: 11-20-2018 lidocaine 2 % injection 5 mL Start: 11-18-2018 End: 11-18-2018 lidocaine 2 % injection 5 mL 1 ml LORazepam 2 mg/ml injection (1 source) Benzodiazepine Start: 11-05-2018 End: 11-05-2018 LORazepam (ATIVAN) injection 1 mg metoprolol tartrate 25 mg oral tablet (4 sources) beta-Adrenergic Yadira Start: 11-15-2018 End: 11-19-2018 take 1 tablet by mouth twice daily metoprolol tartrate (LOPRESSOR) 25 MG tablet Take 1 tablet by mouth 2 times daily HOLD for SBP 60 tablet 3 11/19/2018 11/19/2018 Discontinued naproxen 500 mg oral tablet (3 sources) Nonsteroidal Anti-inflammatory Drug Start: 08-05-2022 End: 04-02-2023 take 1 tablet by mouth twice daily Naproxen (Naprosyn) 500 mg tablet Discontinued 500 MG PO Twice daily 10 August 04, 2022 11:00pm April 02, 2023 6:53pm oxyCODONE hydrochloride 5 mg oral tablet (3 sources) Opioid Agonist Start: 08-05-2022 End: 04-02-2023 take 5 mg by mouth once daily Oxycodone Discontinued 5 MG PO Daily 5 August 05, 2022 April 02, 2023 6:53pm piperacillin-tazoba ctam (ZOSYN) 3.375 g in dextrose 5 % 50 mL IVPB (mini-bag) (1 source) Start: 11-15-2018 End: 11-17-2018 piperacillin-tazoba ctam (ZOSYN) 3.375 g in dextrose 5 % 50 mL IVPB (mini-bag) potassium bicarbonate 25 meq effervescent oral tablet (1 source) Start: 11-04-2018 End: 11-04-2018 potassium bicarbonate (K-LYTE) disintegrating tablet 50 mEq tamsulosin hydrochloride 0.4 mg oral capsule (3 sources) alpha-Adrenergic Yadira Start: 08-05-2022 End: 04-02-2023 [...] Problem Date Documented Date Episodic/Chronic Abdominal pain (3 sources) Abdominal pain; Translations: [Unspecified abdominal pain] 08-05-2022 Episodic Calculus of urinary tract (7 sources) Kidney stone; Translations: [Calculus of kidney] Onset: 08-05-2022 08-05-2022 Episodic Cardiac dysrhythmias (2 sources) Atrial fibrillation 08-10-2022 Chronic Conduction disorders (1 source) Right bundle branch block 04-19-2023 Chronic Diseases of white blood cells (1 source) Elevated white blood cell count, unspecified; Translations: [ELEVATED WHITE BLOOD CELL COUNT UNS] Onset: 12-31-2021 Chronic Disorders of lipid metabolism (10 sources) Pure hypercholesterolemia, unspecified; Translations: [Hyperlipidemia, unspecified] Onset: 08-06-2021 Chronic Essential hypertension (16 sources) Essential (primary) hypertension; Translations: [Hypertensive disorder] [...] failure] Onset: 04-04-2022 Chronic Nausea and vomiting (4 sources) Nausea; Translations: [Nausea and vomiting] Onset: 12-31-2021 08-05-2022 Episodic Neoplasms of unspecified nature or uncertain behavior (2 sources) Neoplasm of uncertain behavior of skin; Translations: [Neoplasm of uncertain behavior of skin] Onset: 05-03-2023 Episodic Occlusion or stenosis of precerebral arteries (2 sources) Occlusion and stenosis of bilateral carotid arteries; Translations: [Occlusion and stenosis of bilateral carotid arteries] Onset: 04-04-2022 Chronic Osteoarthritis (2 sources) Arthritis 08-10-2022 Chronic Other diseases of kidney and ureters (3 sources) Hydronephrosis; Translations: [Unspecified hydronephrosis] Onset: 12-19-2022 Episodic Other diseases of kidney and ureters (2 sources) 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 Other ear and sense organ disorders (2 sources) Hearing loss 08-10-2022 Chronic Other injuries and conditions due to external causes (2 sources) Foreign body in bladder 09-06-2022 Episodic Other nervous system disorders (2 sources) Neuropathy 08-09-2022 Chronic Other nutritional; endocrine; and metabolic disorders (1 source) Hypomagnesemia 04-19-2023 Chronic Other screening for suspected conditions (not mental disorders or infectious disease) (2 sources) Abnormal electrocardiogram [ECG] [EKG]; Translations: [Abnormal electrocardiogram (ECG) (EKG)] Onset: 01-11-2023 Episodic Spondylosis; intervertebral disc disorders; other back problems (1 source) Lumbar spondylosis; Translations: [Lumbar spondylosis] Onset: 11-13-2018 11-13-2018 Chronic Thyroid disorders (2 sources) Hypothyroidism, unspecified; Translations: [Hypothyroidism] Onset: 11-10-2021 04-19-2023 Chronic Thyroid disorders (1 source) Disorder of thyroid gland 08-09-2022 Episodic Unclassified (1 source) CONTACT W/AND (SUSP) EXPOS COVID-19; Translations: [CONTACT W/AND (SUSP) EXPOS COVID-19] Onset: 12-31-2021 Unclassified (1 source) Other ventricular tachycardia; Translations: [Other ventricular tachycardia] Onset: 01-11-2023 Unclassified (1 source) Body mass index 20-24 - normal 05-03-2023 Past or Other Problems Problem Classification Problem [...] Onset: 12-31-2021 Episodic 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 source) retirement (current) use of aspirin; Translations: [SNF CURRENT USE OF ASPIRIN] Onset: 12-31-2021 Episodic 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 source) Other prison (current) drug therapy; Translations: [OTH SNF CURRENT DRUG THERAPY] Onset: 12-31-2021 Episodic Residual codes; unclassified (2 sources) Localized edema; Translations: [Localized edema] Onset: 04-04-2022 Episodic Spondylosis; intervertebral disc disorders; other back problems (10 sources) Lumbar radiculopathy; Translations: [Intractable low back pain] Onset: 11-04-2018 11-04-2018 Episodic Syncope (9 sources) Vasovagal syncope; Translations: [Syncope] Onset: 04-04-2022 11-19-2018 Episodic Unclassified (2 sources) Long-term current use of aspirin 08-10-2022 Unclassified (1 source) Other ventricular tachycardia; Translations: [Other ventricular tachycardia] Onset: 01-11-2023 Results Test Name Value Interpretation Reference Range Facility Consent for Procedure/Surger yon 05-04-2023 Consent for Procedure/Surgery [id number] 0TIFF Normal [facility] Facesheeton 05-04-2023 Facesheet [id number]#[id number] 0TIFF Normal [facility] Ambulatory Visit Summaryon 0 05-03-2023 Ambulatory Visit Summary HIRAM MADRID :1935 Visit Date:05/03/2023 Ambulatory Visit Instructions Your Care Team Attending Physician - ROMARIO DUMONT, Turner Mckeon Primary Care Physician - Jeremiah DUMONT, Addy Referring Physician - Addy Daniels MD This Is Your Medications List Contact prescribing physician if questions or concerns amlodipine (amLODIPine 10 mg Tab) carvedilol (carvedilol 6.25 mg Tab) citalopram (CeleXA 10 mg Tab) levothyroxine (levothyroxine 88 mcg (0.088 mg) Tab) losartan (losartan 100 mg Tab) magnesium oxide (magnesium oxide 400 mg Tab) pantoprazole (Pantoprazole [address] Tab) potassium chloride (Potassium Chloride (Mha-Ecro-Fje 10)) pravastatin (pravastatin 80 mg Tab) Procedures Performed Accessory mobilization of the lumbar spine, Appendectomy, Bilateral salpingo-oophorectomy, Cataract extraction and insertion of intraocular lens, Cholecystectomy, Colonoscopy, Fusion of lumbar spine, Tonsillectomy. Discharge Vitals Heart Rate (Peripheral) 76 Respiratory Rate 16 Blood Pressure 156/82 Height 155 cm Height 61 in Weight 59.8 kg Weight 131.56 lb BMI 24.89 What to do next Scheduled Follow-Up Appointments June. 9, 2024 9:30 AM EDT With: MIKAYLA WEISS PA-C Where: [facility] Normal [facility] Physician Referralon 024 Physician Referral [id number] Normal [facility] Physician Referralon 024 Physician Referral [id number] Normal [facility] Basic Metabolic Panelon 03-23 Anion gap [Moles/Vol] 14.8 mmol/L Normal 6.0-15.0 [facility] Comment on above: Performed By: #### H EPATIC, LIPASE, CBC, BMP, HS TROP #### [facility] [address] Calcium [Mass/Vol] 9.2 mg/dL Normal 8.6-10.3 [facility] Comment on above: Performed By: #### H EPATIC, LIPASE, CBC, BMP, HS TROP #### [facility] [address] [place] [address] [place] Chloride [Moles/Vol] 91 mmol/L Low 98-107 [facility] Comment on above: Performed By: #### H EPATIC, LIPASE, CBC, BMP, HS TROP #### [facility] [address] [place] [id number] [place] CO2 [Moles/Vol] 27.7 mmol/L Normal 21.0-31.0 [facility] Comment on above: Performed By: #### H EPATIC, LIPASE, CBC, BMP, HS TROP #### [facility] [address] [place] [id number] [place] Creatinine [Mass/Vol] 0.56 mg/dL Low 0.60-1.20 [facility] Comment on above: Performed By: #### H EPATIC, LIPASE, CBC, BMP, HS TROP #### [facility] [address] [place] [id number] [place] Creatinine Clr Calc Pharmacy 42.78 [facility] Comment on above: Result Comment: PERF ORMED BY: [facility] [address] [place] [address] PATHOLOGIST GENETICIST GOSIA MCADAMS M.D. Performed By: #### H EPATIC, LIPASE, CBC, BMP, HS TROP #### [facility] [address] [place] [address] [place] GFR/1.73 sq M.predicted MDRD (S/P/Bld) [Vol rate/Area] mL/min/{1.73_m2} Normal [facility] Comment on above: Performed By: #### H EPATIC, LIPASE, CBC, BMP, HS TROP #### [facility] [address] [place] [address] [place] Glucose [Mass/Vol] 116 mg/dL High 70-100 [facility] Comment on above: Result Comment: [facility] [place] [place] Glucose Reference Range is dependent on time and content of last meal. Glucose of more than 200 mg/dL in a nonstressed, ambulatory subject supports the diagnosis of Diabetes Mellitus. ADA recommended reference range Performed By: #### H EPATIC, LIPASE, CBC, BMP, HS TROP #### [facility] [address] [place] [address] [place] Potassium [Moles/Vol] 3.5 mmol/L Normal 3.5-5.1 [facility] Comment on above: Performed By: #### H EPATIC, LIPASE, CBC, BMP, HS TROP #### [facility] [address] [place] [address] [place] Sodium [Moles/Vol] 130 mmol/L Low 136-145 [facility] Comment on above: Performed By: #### H EPATIC, LIPASE, CBC, BMP, HS TROP #### [facility] [address] [place] [address] [place] Urea nitrogen [Mass/Vol] 8 mg/dL Normal 7-25 [facility] Comment on above: Performed By: #### H EPATIC, LIPASE, CBC, BMP, HS TROP #### [facility] [address] [place] [address] [place] Calcium [Mass/volume] in Ser um or PlasmaOrdered By: Turner Frank on 04-05-2023 Calcium [Mass/Vol] 9.2 mg/dL 8.6-10.3 [facility] Carbon dioxide, total [Moles /volume] in Serum or PlasmaOrdered By: Turner Frank on 04-05-2023 CO2 [Moles/Vol] 27.7 mmol/L 21.0-31.0 [facility] Chloride [Moles/volume] in S willa or PlasmaOrdered By: Turner Frank on 04-05-2023 Chloride [Moles/Vol] 91 mmol/L 98-107 [facility] Creatinine [Mass/volume] in Serum or PlasmaOrdered By: Turner Frank on 04-05-2023 Creatinine [Mass/Vol] 0.56 mg/dL 0.60-1.20 [facility] Glucose [Mass/volume] in Ser um or PlasmaOrdered By: Turner Frank on 04-05-2023 Glucose [Mass/Vol] 116 mg/dL 70-100 [facility] Comment on above: ADA recommended refe rence rangeRandom Glucose Reference Range is dependent on time and content of last meal. Glucose of more than 200 mg/dL in a nonstressed, ambulatory subject supports the diagnosis of Diabetes Mellitus. No Panel InformationOrdered By: Turner Frank on 04-05-2023 Estimated GFR (CKD-EPI) > 60.0 mL/Min [facility] Creatinine Clearance (Chem 42.78 [facility] Potassium [Moles/volume] in Serum or PlasmaOrdered By: Turner Frank on 04-05-2023 Potassium [Moles/Vol] 3.5 mmol/L 3.5-5.1 [facility] Serum or plasma anion gap de terminationOrdered By: Turner Frank on 04-05-2023 Anion gap [Moles/Vol] 14.8 mmol/L 6.0-15.0 [facility] Sodium [Moles/volume] in Ser um or PlasmaOrdered By: Turner Frank on 04-05-2023 Sodium [Moles/Vol] 130 mmol/L 136-145 [facility] Urea nitrogen [Mass/volume] in Serum or PlasmaOrdered By: Turner Frank on 04-05-2023 Urea nitrogen [Mass/Vol] 8 mg/dL 7-25 [facility] Basic Metabolic Panelon 03-23 Anion gap [Moles/Vol] 10.8 mmol/L Normal 6.0-15.0 [facility] Comment on above: Performed By: #### H EPATIC, LIPASE, CBC, BMP, HS TROP #### [facility] [address] [place] [address] Calcium [Mass/Vol] 9.0 mg/dL Normal 8.6-10.3 [facility] Comment on above: Performed By: #### H EPATIC, LIPASE, CBC, BMP, HS TROP #### [address] Chloride [Moles/Vol] 92 mmol/L Low 98-107 [facility] Comment on above: Performed By: #### H EPATIC, LIPASE, CBC, BMP, HS TROP #### [address] CO2 [Moles/Vol] 26.3 mmol/L Normal 21.0-31.0 [facility] Comment on above: Performed By: #### H EPATIC, LIPASE, CBC, BMP, HS TROP #### [address] Creatinine [Mass/Vol] 0.61 mg/dL Normal 0.60-1.20 [facility] Comment on above: Performed By: #### H EPATIC, LIPASE, CBC, BMP, HS TROP #### [address] Creatinine Clr Calc Pharmacy 42.78 Normal [facility] Comment on above: Result Comment: PERF ORMED BY: [place] [address] PATHOLOGIST GENETICIST GOSIA MCADAMS M.D. Performed By: #### H EPATIC, LIPASE, CBC, BMP, HS TROP #### [address] GFR/1.73 sq M.predicted MDRD (S/P/Bld) [Vol rate/Area] mL/min/{1.73_m2} Normal [facility] Comment on above: Performed By: #### H EPATIC, LIPASE, CBC, BMP, HS TROP #### [facility] [address] Glucose [Mass/Vol] 177 mg/dL High 70-100 [facility] Comment on above: Result Comment: [facility] [place] Glucose Reference Range is dependent on time and content of last meal. Glucose of more than 200 mg/dL in a nonstressed, ambulatory subject supports the diagnosis of Diabetes Mellitus. ADA recommended reference range Performed By: #### H EPATIC, LIPASE, CBC, BMP, HS TROP #### [facility] [address] Potassium [Moles/Vol] 3.1 mmol/L Low 3.5-5.1 [facility] Comment on above: Performed By: #### H EPATIC, LIPASE, CBC, BMP, HS TROP #### [facility] [address] Sodium [Moles/Vol] 126 mmol/L Low 136-145 [facility] Comment on above: Performed By: #### H EPATIC, LIPASE, CBC, BMP, HS TROP #### [facility] [address] Urea nitrogen [Mass/Vol] 7 mg/dL Normal 7-25 [facility] Comment on above: Performed By: #### H EPATIC, LIPASE, CBC, BMP, HS TROP #### [facility] [address] [place] [address] [place] Anion gap [Moles/Vol] 10.3 mmol/L Normal 6.0-15.0 [facility] Comment on above: Performed By: #### H EPATIC, LIPASE, CBC, BMP, HS TROP #### [facility] [address] Calcium [Mass/Vol] 8.6 mg/dL Normal 8.6-10.3 [facility] Comment on above: Performed By: #### H EPATIC, LIPASE, CBC, BMP, HS TROP #### [facility] [address] [place] [address] [place] Chloride [Moles/Vol] 93 mmol/L Low 98-107 [facility] Comment on above: Performed By: #### H EPATIC, LIPASE, CBC, BMP, HS TROP #### [facility] [address] CO2 [Moles/Vol] 27.2 mmol/L Normal 21.0-31.0 [facility] Comment on above: Performed By: #### H EPATIC, LIPASE, CBC, BMP, HS TROP #### [facility] [address] Creatinine [Mass/Vol] 0.59 mg/dL Low 0.60-1.20 [facility] Comment on above: Performed By: #### H EPATIC, LIPASE, CBC, BMP, HS TROP #### [address] Creatinine Clr Calc Pharmacy 42.39 [facility] Comment on above: Performed By: #### H EPATIC, LIPASE, CBC, BMP, HS TROP #### [address] GFR/1.73 sq M.predicted MDRD (S/P/Bld) [Vol rate/Area] mL/min/{1.73_m2} [facility] Comment on above: Performed By: #### H EPATIC, LIPASE, CBC, BMP, HS TROP #### [address] Glucose [Mass/Vol] 107 mg/dL High 70-100 [facility] Comment on above: Result Comment: [place] Glucose Reference Range is dependent on time and content of last meal. Glucose of more than 200 mg/dL in a nonstressed, ambulatory subject supports the diagnosis of Diabetes Mellitus. ADA recommended reference range Performed By: #### H EPATIC, LIPASE, CBC, BMP, HS TROP #### [facility] [address] Potassium [Moles/Vol] 3.5 mmol/L Normal 3.5-5.1 [facility] Comment on above: Performed By: #### H EPATIC, LIPASE, CBC, BMP, HS TROP #### [facility] [address] Sodium [Moles/Vol] 127 mmol/L Low 136-145 [facility] Comment on above: Performed By: #### H EPATIC, LIPASE, CBC, BMP, HS TROP #### [facility] [address] Urea nitrogen [Mass/Vol] 7 mg/dL Normal 7-25 [facility] Comment on above: Performed By: #### H EPATIC, LIPASE, CBC, BMP, HS TROP #### [address] Free T4 (Free Thyroxine)on 0 04-04-2023 Free T4 [Mass/Vol] 1.41 ng/dL High 0.61-1.12 [facility] Comment on above: Result Comment: PERF ORMED BY: [place] [address] PATHOLOGIST GENETICIST GOSIA MCADAMS M.D. Performed By: #### H EPATIC, LIPASE, CBC, BMP, HS TROP #### [address] Thyroxine (T4) free [Mass/vo lume] in Serum or PlasmaOrdered By: Turner Frank on 04-04-2023 Free T4 [Mass/Vol] 1.41 ng/dL 0.61-1.12 [facility] Alanine aminotransferase [En zymatic activity/volume] in Serum or PlasmaOrdered By: Natividad Gregory on 04-03-2023 ALT [Catalytic activity/Vol] 14 U/L 752 [facility] Albumin [Mass/volume] in Ser um or Plasma by Bromocresol green (BCG) dye binding methoOrdered By: Natividad Gregory on 04-03-2023 Albumin BCG dye [Mass/Vol] 3.7 g/dL 3.5-5.7 [facility] Alkaline phosphatase [Enzyma tic activity/volume] in Serum or PlasmaOrdered By: Natividad Gregory on 04-03-2023 ALP [Catalytic activity/Vol] 56 U/L 34-104 [facility] Aspartate aminotransferase [ Enzymatic activity/volume] in Serum or PlasmaOrdered By: Natividad Gregory on 04-03-2023 AST [Catalytic activity/Vol] 20 U/L 13-39 [facility] Basic Metabolic Panelon 03-23 Anion gap [Moles/Vol] 13.3 mmol/L Normal 6.0-15.0 [facility] Comment on above: Performed By: #### H EPATIC, LIPASE, CBC, BMP, HS TROP #### [facility] [address] Calcium [Mass/Vol] 8.9 mg/dL Normal 8.6-10.3 [facility] Comment on above: Performed By: #### H EPATIC, LIPASE, CBC, BMP, HS TROP #### [facility] [address] Chloride [Moles/Vol] 86 mmol/L Low 98-107 [facility] Comment on above: Performed By: #### H EPATIC, LIPASE, CBC, BMP, HS TROP #### [facility] [address] [place] [address] CO2 [Moles/Vol] 26.0 mmol/L Normal 21.0-31.0 [facility] Comment on above: Performed By: #### H EPATIC, LIPASE, CBC, BMP, HS TROP #### [facility] [address] [place] [address] Creatinine [Mass/Vol] 0.65 mg/dL Normal 0.60-1.20 [facility] Comment on above: Performed By: #### H EPATIC, LIPASE, CBC, BMP, HS TROP #### [facility] [address] [place] [address] [place] Creatinine Clr Calc Pharmacy 42.39 Normal [facility] Comment on above: Result Comment: PERF ORMED BY: [place] [address] PATHOLOGIST GENETICIST GOSIA MCADAMS M.D. Performed By: #### H EPATIC, LIPASE, CBC, BMP, HS TROP #### [facility] [address] [place] [address] [place] GFR/1.73 sq M.predicted MDRD (S/P/Bld) [Vol rate/Area] mL/min/{1.73_m2} Normal [facility] Comment on above: Performed By: #### H EPATIC, LIPASE, CBC, BMP, HS TROP #### [facility] [address] Glucose [Mass/Vol] 170 mg/dL High 70-100 [facility] Comment on above: Result Comment: [facility] [place] Glucose Reference Range is dependent on time and content of last meal. Glucose of more than 200 mg/dL in a nonstressed, ambulatory subject supports the diagnosis of Diabetes Mellitus. ADA recommended reference range Performed By: #### H EPATIC, LIPASE, CBC, BMP, HS TROP #### [address] Potassium [Moles/Vol] 3.3 mmol/L Low 3.5-5.1 [facility] Comment on above: Performed By: #### H EPATIC, LIPASE, CBC, BMP, HS TROP #### [address] Sodium [Moles/Vol] 122 mmol/L Off scale low 136-145 [facility] Comment on above: Result Comment: Crit ical Result Called to and read back by: NOT FIRST at: 04/03/2023 19:17:43 by:[id number] Performed By: #### H EPATIC, LIPASE, CBC, BMP, HS TROP #### [facility] [address] Urea nitrogen [Mass/Vol] 7 mg/dL Normal 7-25 [facility] Comment on above: Performed By: #### H EPATIC, LIPASE, CBC, BMP, HS TROP #### [address] Anion gap [Moles/Vol] 14.6 mmol/L Normal 6.0-15.0 [facility] Comment on above: Performed By: #### H EPATIC, LIPASE, CBC, BMP, HS TROP #### [address] Calcium [Mass/Vol] 8.8 mg/dL Normal 8.6-10.3 [facility] Comment on above: Performed By: #### H EPATIC, LIPASE, CBC, BMP, HS TROP #### [address] Chloride [Moles/Vol] 81 mmol/L Low 98-107 [facility] Comment on above: Performed By: #### H EPATIC, LIPASE, CBC, BMP, HS TROP #### [address] CO2 [Moles/Vol] 26.8 mmol/L Normal 21.0-31.0 [facility] Comment on above: Performed By: #### H EPATIC, LIPASE, CBC, BMP, HS TROP #### [address] Creatinine [Mass/Vol] 0.61 mg/dL Normal 0.60-1.20 [facility] Comment on above: Performed By: #### H EPATIC, LIPASE, CBC, BMP, HS TROP #### [address] Creatinine Clr Calc Pharmacy 42.39 [facility] Comment on above: Result Comment: PERF ORMED BY: [place] [address] PATHOLOGIST GENETICIST GOSIA MCADAMS M.D. Performed By: #### H EPATIC, LIPASE, CBC, BMP, HS TROP #### [address] GFR/1.73 sq M.predicted MDRD (S/P/Bld) [Vol rate/Area] mL/min/{1.73_m2} [facility] Comment on above: Performed By: #### H EPATIC, LIPASE, CBC, BMP, HS TROP #### [facility] [address] Glucose [Mass/Vol] 108 mg/dL High 70-100 [facility] Comment on above: Result Comment: [facility] [place] Glucose Reference Range is dependent on time and content of last meal. Glucose of more than 200 mg/dL in a nonstressed, ambulatory subject supports the diagnosis of Diabetes Mellitus. ADA recommended reference range Performed By: #### H EPATIC, LIPASE, CBC, BMP, HS TROP #### [address] Potassium [Moles/Vol] 3.4 mmol/L Low 3.5-5.1 [facility] Comment on above: Performed By: #### H EPATIC, LIPASE, CBC, BMP, HS TROP #### [address] Sodium [Moles/Vol] 119 mmol/L Off scale low 136-145 [facility] Comment on above: Result Comment: Crit ical Result Called to and read back by: NOT FIRST TIME CRITICAL at: 04/03/2023 14:56:28 by:[email or web address] Performed By: #### H EPATIC, LIPASE, CBC, BMP, HS TROP #### [address] Urea nitrogen [Mass/Vol] 7 mg/dL Normal 7-25 [facility] Comment on above: Performed By: #### H EPATIC, LIPASE, CBC, BMP, HS TROP #### [address] Anion gap [Moles/Vol] 16.6 mmol/L High 6.0-15.0 [facility] Comment on above: Performed By: #### H EPATIC, LIPASE, CBC, BMP, HS TROP #### [address] Calcium [Mass/Vol] 9.0 mg/dL Normal 8.6-10.3 [facility] Comment on above: Performed By: #### H EPATIC, LIPASE, CBC, BMP, HS TROP #### [facility] [address] [place] [address] [place] Chloride [Moles/Vol] 81 mmol/L Low 98-107 [facility] Comment on above: Performed By: #### H EPATIC, LIPASE, CBC, BMP, HS TROP #### [facility] [address] CO2 [Moles/Vol] 25.7 mmol/L Normal 21.0-31.0 [facility] Comment on above: Performed By: #### H EPATIC, LIPASE, CBC, BMP, HS TROP #### [facility] [address] Creatinine [Mass/Vol] 0.63 mg/dL Normal 0.60-1.20 [facility] Comment on above: Performed By: #### H EPATIC, LIPASE, CBC, BMP, HS TROP #### [facility] [address] Creatinine Clr Calc Pharmacy 42.39 [facility] Comment on above: Result Comment: PERF ORMED BY: [place] [address] PATHOLOGIST GENETICIST GOSIA MCADAMS M.D. Performed By: #### H EPATIC, LIPASE, CBC, BMP, HS TROP #### [facility] [address] GFR/1.73 sq M.predicted MDRD (S/P/Bld) [Vol rate/Area] mL/min/{1.73_m2} [facility] Comment on above: Performed By: #### H EPATIC, LIPASE, CBC, BMP, HS TROP #### [facility] [address] [place] [address] [place] Glucose [Mass/Vol] 123 mg/dL High 70-100 [facility] Comment on above: Result Comment: [place] Glucose Reference Range is dependent on time and content of last meal. Glucose of more than 200 mg/dL in a nonstressed, ambulatory subject supports the diagnosis of Diabetes Mellitus. ADA recommended reference range Performed By: #### H EPATIC, LIPASE, CBC, BMP, HS TROP #### [facility] [address] Potassium [Moles/Vol] 3.3 mmol/L Low 3.5-5.1 [facility] Comment on above: Performed By: #### H EPATIC, LIPASE, CBC, BMP, HS TROP #### [facility] [address] Sodium [Moles/Vol] 120 mmol/L Off scale low 136-145 [facility] Comment on above: Result Comment: Crit ical Result Called to and read back by: NOT FIRST TIME CRITICAL at: 04/03/2023 13:00:21 by:[email or web address] Performed By: #### H EPATIC, LIPASE, CBC, BMP, HS TROP #### [address] Urea nitrogen [Mass/Vol] 7 mg/dL Normal 7-25 [facility] Comment on above: Performed By: #### H EPATIC, LIPASE, CBC, BMP, HS TROP #### [address] Anion gap [Moles/Vol] 10.9 mmol/L Normal 6.0-15.0 [facility] Comment on above: Performed By: #### H EPATIC, LIPASE, CBC, BMP, HS TROP #### [address] Calcium [Mass/Vol] 8.6 mg/dL Normal 8.6-10.3 [facility] Comment on above: Performed By: #### H EPATIC, LIPASE, CBC, BMP, HS TROP #### [address] CO2 [Moles/Vol] 28.3 mmol/L Normal 21.0-31.0 [facility] Comment on above: Performed By: #### H EPATIC, LIPASE, CBC, BMP, HS TROP #### [address] Creatinine [Mass/Vol] 0.60 mg/dL Normal 0.60-1.20 [facility] Comment on above: Performed By: #### H EPATIC, LIPASE, CBC, BMP, HS TROP #### [facility] [address] Glucose [Mass/Vol] 121 mg/dL High 70-100 [facility] Comment on above: Result Comment: [facility] [place] Glucose Reference Range is dependent on time and content of last meal. Glucose of more than 200 mg/dL in a nonstressed, ambulatory subject supports the diagnosis of Diabetes Mellitus. ADA recommended reference range Performed By: #### H EPATIC, LIPASE, CBC, BMP, HS TROP #### [facility] [address] Potassium [Moles/Vol] 3.2 mmol/L Low 3.5-5.1 [facility] Comment on above: Performed By: #### H EPATIC, LIPASE, CBC, BMP, HS TROP #### [facility] [address] Sodium [Moles/Vol] 118 mmol/L Off scale low 136-145 [facility] Comment on above: Result Comment: Crit ical Result Called to and read back by: NOT FIRST TIME at: 04/03/2023 08:56:25 by:[id number] Performed By: #### H EPATIC, LIPASE, CBC, BMP, HS TROP #### [facility] [address] Urea nitrogen [Mass/Vol] 5 mg/dL Low 7-25 [facility] Comment on above: Performed By: #### H EPATIC, LIPASE, CBC, BMP, HS TROP #### [facility] [address] Anion gap [Moles/Vol] 14.1 mmol/L Normal 6.0-15.0 [facility] Comment on above: Performed By: #### B MP #### [facility] [address] Calcium [Mass/Vol] 8.3 mg/dL Low 8.6-10.3 [facility] Comment on above: Performed By: #### B MP #### [facility] [address] Chloride [Moles/Vol] 82 mmol/L Low 98-107 [facility] Comment on above: Performed By: #### H EPATIC, LIPASE, CBC, BMP, HS TROP #### [facility] [address] Performed By: #### B MP #### [address] CO2 [Moles/Vol] 25.8 mmol/L Normal 21.0-31.0 [facility] Comment on above: Performed By: #### B MP #### [address] Creatinine [Mass/Vol] 0.59 mg/dL Low 0.60-1.20 [facility] Comment on above: Performed By: #### B MP #### [address] Creatinine Clr Calc Pharmacy 42.94 [facility] Comment on above: Result Comment: PERF ORMED BY: [place] [address] PATHOLOGIST GENETICIST GOSIA MCADAMS M.D. Performed By: #### B MP #### [address] GFR/1.73 sq M.predicted MDRD (S/P/Bld) [Vol rate/Area] mL/min/{1.73_m2} [facility] Comment on above: Performed By: #### B MP #### [address] Glucose [Mass/Vol] 102 mg/dL High 70-100 [facility] Comment on above: Result Comment: [place] Glucose Reference Range is dependent on time and content of last meal. Glucose of more than 200 mg/dL in a nonstressed, ambulatory subject supports the diagnosis of Diabetes Mellitus. ADA recommended reference range Performed By: #### B MP #### [place] [address] [place] Potassium [Moles/Vol] 2.9 mmol/L Off scale low 3.5-5.1 [facility] Comment on above: Result Comment: Crit ical Result Called to and read back by: TADEO BEAUCHAMP at: 04/03/2023 03:37:07 by:[id number] Performed By: #### B MP #### [facility] [address] [place] [address] Sodium [Moles/Vol] 119 mmol/L Off scale low 136-145 [facility] Comment on above: Result Comment: Crit ical Result Called to and read back by: TADEO BEAUCHAMP at: 04/03/2023 03:37:07 by:[id number] Performed By: #### B MP #### [facility] [address] [place] [address] Urea nitrogen [Mass/Vol] 6 mg/dL Low 7-25 [facility] Comment on above: Performed By: #### B MP #### [facility] [address] [place] [address] Basophils Auto (Bld) [#/Vol] Ordered By: Natividad Gregory on 04-03-2023 Basophils (Bld) [#/Vol] 0.1 10*3/uL 0.0-0.2 [facility] Basophils/100 WBC Auto (Bld) Ordered By: Natividad Gregory on 04-03-2023 Basophils/100 WBC (Bld) 0.6 % . [facility] Bilirubin.total [Mass/volume ] in Serum or PlasmaOrdered By: Natividad Gregory on 04-03-2023 Bilirubin [Mass/Vol] 0.7 mg/dL 0.3-1.0 [facility] Complete Blood Count Auto Di ffon 04-03-2023 Basophils (Bld) [#/Vol] 0.1 10*3/uL Normal 0.0-0.2 [facility] Comment on above: Result Comment: PERF ORMED BY: [place] [address] PATHOLOGIST GENETICIST GOSIA MCADAMS M.D. Performed By: #### C BC, CMP #### [facility] [address] [place] [address] [place] Basophils/100 WBC (Bld) 0.6 % Normal . [facility] Comment on above: Performed By: #### C BC, CMP #### [facility] [address] [place] [address] [place] Eosinophils (Bld) [#/Vol] 0.1 10*3/uL Normal 0.0-0.45 [facility] Comment on above: Performed By: #### C BC, CMP #### [facility] [address] Eosinophils/100 WBC (Bld) 0.8 % Normal . [facility] Comment on above: Performed By: #### C BC, CMP #### [address] Erythrocyte distribution width (RBC) [Ratio] 13.9 % Normal 11.9-15.3 [facility] Comment on above: Performed By: #### C BC, CMP #### [address] Hematocrit (Bld) [Volume fraction] 35.5 % Normal 34.0-46.4 [facility] Comment on above: Performed By: #### C BC, CMP #### [place] [address] [place] Hemoglobin (Bld) [Mass/Vol] 12.7 g/dL Normal 11.8-15.4 [facility] Comment on above: Performed By: #### C BC, CMP #### [facility] [address] [place] [address] [place] Lymphocytes (Bld) [#/Vol] 1.7 10*3/uL Normal 1.00-4.8 [facility] Comment on above: Performed By: #### C BC, CMP #### [facility] [address] [place] [address] [place] Lymphocytes/100 WBC (Bld) 15.6 % Normal . [facility] Comment on above: Performed By: #### C BC, CMP #### [address] [place] [address] [place] MCH (RBC) [Entitic mass] 31.6 pg Normal 24.7-34.3 [facility] Comment on above: Performed By: #### C BC, CMP #### [facility] [address] MCV (RBC) [Entitic vol] 88.3 fL Normal 80-100 [facility] Comment on above: Performed By: #### C BC, CMP #### [address] Mean Corpuscular HGB Conc 35.8 g/dL High 32.0-35.0 [facility] Comment on above: Performed By: #### C BC, CMP #### [address] Monocytes (Bld) [#/Vol] 1.1 10*3/uL High 0.0-0.8 [facility] Comment on above: Performed By: #### C BC, CMP #### [address] Monocytes/100 WBC (Bld) 10.3 % Normal . [facility] Comment on above: Performed By: #### C BC, CMP #### [address] Neutrophils (Bld) [#/Vol] 7.7 10*3/uL Normal 1.8-7.7 [facility] Comment on above: Performed By: #### C BC, CMP #### [address] Neutrophils/100 WBC (Bld) 72.7 % Normal . [facility] Comment on above: Performed By: #### C BC, CMP #### [address] NRBC% 0.3 /100{WBC} Normal 0-0.5 [facility] Comment on above: Performed By: #### C BC, CMP #### [address] Platelet mean volume (Bld) [Entitic vol] 7.0 fL Normal 6.3-10.7 [facility] Comment on above: Performed By: #### C BC, CMP #### [address] Platelets (Bld) [#/Vol] 424 10*3/uL Normal 150-450 [facility] Comment on above: Performed By: #### C BC, CMP #### [address] RBC (Bld) [#/Vol] 4.02 10*6/uL Normal 3.60-5.00 [facility] Comment on above: Performed By: #### C BC, CMP #### [address] WBC (Bld) [#/Vol] 10.6 10*3/uL Normal 3.8-11.6 [facility] Comment on above: Performed By: #### C BC, CMP #### [address] Comprehensive Metabolic Pane bebeto 04-03-2023 Albumin [Mass/Vol] 3.7 g/dL Normal 3.5-5.7 [facility] Comment on above: Performed By: #### C BC, CMP #### [address] Albumin/Globulin [Mass ratio] 1.5 {ratio} Normal [facility] Comment on above: Performed By: #### C BC, CMP #### [address] ALP [Catalytic activity/Vol] 56 U/L Normal 34-104 [facility] Comment on above: Performed By: #### C BC, CMP #### [address] ALT [Catalytic activity/Vol] 14 U/L Normal 7-52 [facility] Comment on above: Performed By: #### C BC, CMP #### [address] Anion gap [Moles/Vol] 12.9 mmol/L Normal 6.0-15.0 [facility] Comment on above: Performed By: #### C BC, CMP #### [facility] [address] AST [Catalytic activity/Vol] 20 U/L Normal 13-39 [facility] Comment on above: Performed By: #### C BC, CMP #### [facility] [address] Bilirubin [Mass/Vol] 0.7 mg/dL Normal 0.3-1.0 [facility] Comment on above: Performed By: #### C BC, CMP #### [address] Calcium [Mass/Vol] 8.5 mg/dL Low 8.6-10.3 [facility] Comment on above: Performed By: #### C BC, CMP #### [address] Chloride [Moles/Vol] 81 mmol/L Low 98-107 [facility] Comment on above: Performed By: #### C BC, CMP #### [address] CO2 [Moles/Vol] 26.1 mmol/L Normal 21.0-31.0 [facility] Comment on above: Performed By: #### C BC, CMP #### [address] Creatinine [Mass/Vol] 0.58 mg/dL Low 0.60-1.20 [facility] Comment on above: Performed By: #### C BC, CMP #### [facility] [address] [place] [address] [place] Creatinine Clr Calc Pharmacy 42.94 Normal [facility] Comment on above: Result Comment: PERF ORMED BY: [place] [address] PATHOLOGIST GENETICIST GOSIA MCADAMS M.D. Performed By: #### C BC, CMP #### [facility] [address] [place] [address] [place] GFR/1.73 sq M.predicted MDRD (S/P/Bld) [Vol rate/Area] mL/min/{1.73_m2} Normal [facility] Comment on above: Performed By: #### C BC, CMP #### [facility] [address] Globulin (S) [Mass/Vol] 2.4 g/dL Normal [facility] Comment on above: Performed By: #### C BC, CMP #### [facility] [address] Glucose [Mass/Vol] 136 mg/dL High 70-100 [facility] Comment on above: Result Comment: [facility] [place] Glucose Reference Range is dependent on time and content of last meal. Glucose of more than 200 mg/dL in a nonstressed, ambulatory subject supports the diagnosis of Diabetes Mellitus. ADA recommended reference range Performed By: #### C BC, CMP #### [facility] [address] Potassium [Moles/Vol] 3.0 mmol/L Low 3.5-5.1 [facility] Comment on above: Performed By: #### C BC, CMP #### [facility] [address] Protein [Mass/Vol] 6.1 g/dL Low 6.4-8.9 [facility] Comment on above: Performed By: #### C BC, CMP #### [facility] [address] Sodium [Moles/Vol] 117 mmol/L Off scale low 136-145 [facility] Comment on above: Result Comment: Crit ical Result Called to and read back by: EDMAR PATEL at: 04/03/2023 06:09:08 by:[id number] Performed By: #### C BC, CMP #### [facility] [address] Urea nitrogen [Mass/Vol] 6 mg/dL Low 7-25 [facility] Comment on above: Performed By: #### C BC, CMP #### [facility] [address] Eosinophils Auto (Bld) [#/Vo l]Ordered By: Natividad Gregory on 04-03-2023 Eosinophils (Bld) [#/Vol] 0.1 10*3/uL 0.0-0.45 [facility] Eosinophils/100 WBC Auto (Bl d)Ordered By: Natividad Gregory on 04-03-2023 Eosinophils/100 WBC (Bld) 0.8 % . [facility] Erythrocyte distribution wid th Auto (RBC) [Ratio]Ordered By: Natividad Gregory on 04-03-2023 Erythrocyte distribution width (RBC) [Ratio] 13.9 % 11.9-15.3 [facility] Globulin Calc (S) [Mass/Vol] Ordered By: Natividad Gregory on 04-03-2023 Globulin (S) [Mass/Vol] 2.4 g/dL [facility] Hematocrit Auto (Bld) [Volum e fraction]Ordered By: Natividad Gregory on 04-03-2023 Hematocrit (Bld) [Volume fraction] 35.5 % 34.0-46.4 [facility] Hemoglobin [Mass/volume] in BloodOrdered By: Natividad Gregory on 04-03-2023 Hemoglobin (Bld) [Mass/Vol] 12.7 g/dL 11.8-15.4 [facility] Leukocytes [#/volume] correc sofiya for nucleated erythrocytes in Blood by Automated counOrdered By: Natividad Gregory on 04-03-2023 WBC corrected for nucl RBC Auto (Bld) [#/Vol] 10.6 10*3/uL 3.8-11.6 [facility] Lymphocytes Auto (Bld) [#/Vo l]Ordered By: Natividad Gregory on 04-03-2023 Lymphocytes (Bld) [#/Vol] 1.7 10*3/uL 1.00-4.8 [facility] Lymphocytes/100 WBC Auto (Bl d)Ordered By: Natividad Gregory on 04-03-2023 Lymphocytes/100 WBC (Bld) 15.6 % . [facility] MCH Auto (RBC) [Entitic mass ]Ordered By: Natividad Gregory on 04-03-2023 MCH (RBC) [Entitic mass] 31.6 pg 24.7-34.3 [facility] MCHC Auto (RBC) [Mass/Vol]Or dered By: Natividad Gregory on 04-03-2023 MCHC (RBC) [Mass/Vol] 35.8 g/dL 32.0-35.0 [facility]ir [facility] MCV Auto (RBC) [Entitic vol] Ordered By: Natividad Gregory on 04-03-2023 MCV (RBC) [Entitic vol] 88.3 fL 80-100 F [facility] Monocytes Auto (Bld) [#/Vol] Ordered By: Natividad Gregory on 04-03-2023 Monocytes (Bld) [#/Vol] 1.1 10*3/uL 0.0-0.8 [facility] Monocytes/100 WBC Auto (Bld) Ordered By: Natividad Gregory on 04-03-2023 Monocytes/100 WBC (Bld) 10.3 % . [facility] Neutrophils Auto (Bld) [#/Vo l]Ordered By: Natividad Gregory on 04-03-2023 Neutrophils (Bld) [#/Vol] 7.7 10*3/uL 1.8-7.7 [facility] Neutrophils/100 WBC Auto (Bl d)Ordered By: Natividad Gregory on 04-03-2023 Neutrophils/100 WBC (Bld) 72.7 % . [facility] Nucleated erythrocytes [Pres ence] in Blood by Automated countOrdered By: Natividad Gregory on 04-03-2023 Nucleated RBC Auto Ql (Bld) 0.3 /100{WBC} 0-0.5 [facility] Platelet mean volume Auto (B ld) [Entitic vol]Ordered By: Natividad Gregory on 04-03-2023 Platelet mean volume (Bld) [Entitic vol] 7.0 fL 6.3-10.7 [facility] Platelets Auto (Bld) [#/Vol] Ordered By: Natividad Gregory on 04-03-2023 Platelets (Bld) [#/Vol] 424 10*3/uL 150-450 [facility] Protein [Mass/volume] in Ser um or PlasmaOrdered By: Natividad Gregory on 04-03-2023 Protein [Mass/Vol] 6.1 g/dL 6.4-8.9 [facility] RBC Auto (Bld) [#/Vol]Ordere d By: Natividad Gregory on 04-03-2023 RBC (Bld) [#/Vol] 4.02 10*6/uL 3.60-5.00 [facility] Serum or plasma albumin/glob ulin mass ratioOrdered By: Natividad Gregory on 04-03-2023 Albumin/Globulin [Mass ratio] 1.5 {ratio} [facility] Sodiumon 04-03-2023 Sodium [Moles/Vol] 124 mmol/L Off scale low 136-145 [facility] Comment on above: Result Comment: Crit ical Result Called to and read back by: SAMMIE GOULD at: 04/03/2023 22:42:55 by:KRISTAL PERFORMED BY: [place] [address] PATHOLOGIST GENETICIST GOSIA MCADAMS M.D. Performed By: #### N A #### [facility] [address] [place] [address] WBC Auto (Bld) [#/Vol]Ordere d By: Natividad Gregory on 04-03-2023 WBC (Bld) [#/Vol] 10.6 10*3/uL 3.8-11.6 [facility] Basic Metabolic Panelon 03-23 Anion gap [Moles/Vol] 12.8 mmol/L Normal 6.0-15.0 [facility] Comment on above: Performed By: #### H EPATIC, LIPASE, CBC, BMP, HS TROP #### [facility] [address] Calcium [Mass/Vol] 8.8 mg/dL Normal 8.6-10.3 [facility] Comment on above: Performed By: #### H EPATIC, LIPASE, CBC, BMP, HS TROP #### [facility] [address] [place] [address] [place] Chloride [Moles/Vol] 81 mmol/L Low 98-107 [facility] Comment on above: Performed By: #### H EPATIC, LIPASE, CBC, BMP, HS TROP #### [address] CO2 [Moles/Vol] 26.3 mmol/L Normal 21.0-31.0 [facility] Comment on above: Performed By: #### H EPATIC, LIPASE, CBC, BMP, HS TROP #### [address] Creatinine [Mass/Vol] 0.59 mg/dL Low 0.60-1.20 [facility] Comment on above: Performed By: #### H EPATIC, LIPASE, CBC, BMP, HS TROP #### [place] [address] [place] Creatinine Clr Calc Pharmacy 42.94 [facility] Comment on above: Performed By: #### H EPATIC, LIPASE, CBC, BMP, HS TROP #### [place] [address] [place] GFR/1.73 sq M.predicted MDRD (S/P/Bld) [Vol rate/Area] mL/min/{1.73_m2} [facility] Comment on above: Performed By: #### H EPATIC, LIPASE, CBC, BMP, HS TROP #### [address] Glucose [Mass/Vol] 122 mg/dL High 70-100 [facility] Comment on above: Result Comment: [place] Glucose Reference Range is dependent on time and content of last meal. Glucose of more than 200 mg/dL in a nonstressed, ambulatory subject supports the diagnosis of Diabetes Mellitus. ADA recommended reference range Performed By: #### H EPATIC, LIPASE, CBC, BMP, HS TROP #### [address] [place] [address] [place] Potassium [Moles/Vol] 3.1 mmol/L Low 3.5-5.1 [facility] Comment on above: Performed By: #### H EPATIC, LIPASE, CBC, BMP, HS TROP #### [address] Sodium [Moles/Vol] 117 mmol/L Off scale low 136-145 [facility] Comment on above: Result Comment: Crit ical Result Called to and read back by: GERMAIN BEAUCHAMP at: 04/02/2023 21:52:44 by:[id number] Performed By: #### H EPATIC, LIPASE, CBC, BMP, HS TROP #### [address] Urea nitrogen [Mass/Vol] 7 mg/dL Normal 7-25 [facility] Comment on above: Performed By: #### H EPATIC, LIPASE, CBC, BMP, HS TROP #### [facility] [address] [place] [address] Magnesiumon 04-02-2023 Magnesium [Mass/Vol] 1.9 mg/dL Normal 1.9-2.7 [facility] Comment on above: Performed By: #### H EPATIC, LIPASE, CBC, BMP, HS TROP #### [address] Magnesium [Mass/volume] in S willa or PlasmaOrdered By: Natividad Gregory on 04-02-2023 Magnesium [Mass/Vol] 1.9 mg/dL 1.9-2.7 [facility] No Panel InformationOrdered By: Natividad Gregory on 04-02-2023 Urine Osmolality 298 mosm 250-900 [facility] Osmolality, Urineon 04-02-19 24 Osmolality, Urine 298 mosm Normal 250-900 [facility] Comment on above: Result Comment: PERF ORMED BY: [place] [address] PATHOLOGIST GENETICIST GOSIA MCADAMS M.D. Performed By: #### H EPATIC, LIPASE, CBC, BMP, HS TROP #### [facility] [address] [place] [id number] [place] Sodium [Moles/volume] in Uri neOrdered By: Natividad Gregory on 04-02-2023 Sodium (U) [Moles/Vol] 79 mmol/L [facility] Comment on above: No reference range e stablished Sodium, Urine (Random)on Sodium (U) [Moles/Vol] 79 mmol/L Normal [facility] Comment on above: Result Comment: No r eference range established PERFORMED BY: [place] [address] PATHOLOGIST GENETICIST GOSIA MCADAMS M.D. Performed By: #### H EPATIC, LIPASE, CBC, BMP, HS TROP #### [facility] [address] Thyroid Stimulating Hormoneo n 04-02-2023 TSH Qn 5.76 m[IU]/L High 0.45-5.33 [facility] Comment on above: Result Comment: PERF ORMED BY: [place] [address] PATHOLOGIST GENETICIST GOSIA MCADAMS M.D. Performed By: #### H EPATIC, LIPASE, CBC, BMP, HS TROP #### [facility] [address] [place] [id number] [facility] Thyrotropin [Units/volume] i n Serum or PlasmaOrdered By: Natividad Gregory on 04-02-2023 TSH Qn 5.76 m[IU]/L 0.45-5.33 [facility] Office Visiton 01-11-2023 Follow-up visit [id number] Hiram Madrid 1935 F Date Provider Department Center 01/11/2023 LESLY GASPAR Family History Problem Relation Age of Onset Hypertension Mother Lupus Mother Coronary artery disease Mother Heart attack Mother Hypertension Father Aneurysm Father Coronary artery disease Father Hypertension Sister Lupus Sister Family Status - Relation Status Age at Mother Father Sister Level of Service:28911 DE OFFICE/OUTPATIENT ESTABLISHED MOD MDM 30-39 MIN Normal [facility] Lab Reportson 12-23-2022 Lab Reports [id number] 0TIFF Normal [facility] Urology Office/Clinic Noteon 12-23-2022 Urology [...] Pt presented to ER due to syncope. [place] was found incidentally on CT. CT AP [...] this plan. Follow-up With When Contact Information ABHISHEK NOONAN, MIKAYLA Pereira, URL [address] [place] [address] [phone] Additional Instructions: 6 mos w/ renal fxn [...] Tab losartan 100 mg Tab Potassium Chloride (Xwv-Uwvo-Xia 10), Oral, BID pravastatin 80 mg Tab [...] virus vaccine, (more content not included)... Normal [facility] Comment on above: Result Comment: Elec tronically Signed By: MIKAYLA WEISS PA-C\.br\Date and Time Signed: 12/23/22 12:13 EDT\.br\Electronically Co-Signed By: Jacquie Gan\.br\Date and Time Co-Signed: 12/22/22 12:27 EDT Ambulatory Visit Summaryon 1 02-21-2022 Ambulatory Visit Summary HIRAM MADRID :1935 Visit Date:12/22/2022 Ambulatory Visit Instructions Your Diagnosis Hydronephrosis, right Ureteral stenosis Tests Performed Urnls Dip Stick Auto w/o Microscopy POC 46319 US Renal -- Results Pending -- Please [...] 100 mg Tab) potassium chloride (Potassium Chloride (Iik-Fayn-Lew 10)) pravastatin (pravastatin 80 mg Tab) Procedures Performed Appendectomy, Bilateral salpingo-oophorectomy, Cataract extraction and insertion of intraocular lens, Cholecystectomy, Colonoscopy, Procedure on back, Tonsillectomy. Discharge Vitals Blood Pressure 124/84 Height 155 cm Height 61 in Weight 64.8 kg Weight 142.56 lb BMI 26.97 What to do next Scheduled Follow-Up Appointments June. 2023 9:30 AM EDT With: MIKAYLA WEISS PA-C Where: [facility] Patient Educationon 12-23-19 Patient Education Urology [...] Follow these instructions at home: ? Take eocg-ikg-pyikaad and prescription medicines only as told by [...] provider. Document Revised: 05/26/2020 Document Reviewed: 05/26/2020 Elsevier Patient Education ? 2022 [employer] staff. Normal [facility] RAD - Ultrasound Reporton RAD - Ultrasound Report [id number] 0TIFF Normal [facility] Reminderson 12-22-2022 Reminders - From: Jacquie Gan To: ERIN Renteria Abhishek; Sent: 12/22/2022 12:30:05 EDT Show up: 05/23/2023 12:30:00 EDT Subject: JAC and BUN/Creatinine prior to appt Reminder Message Please Remember to:_have pt schedule JAC prior to appt. Please look for BUN/Cr labs from PCP. If unable to locate recent labs, send pt order to complete this. Normal [facility] Orders Onlyon 10-25-2022 Orders Only [id number] Hiram Madrid 1935 F Date Provider Department Center 10/25/2022 LESLY GASPAR You Family History Problem Relation Age of Onset Hypertension Mother Lupus Mother Coronary artery disease Mother Heart attack Mother Hypertension Father Aneurysm Father Coronary artery disease Father Hypertension Sister Lupus Sister Family Status - Relation Status Age at Mother Father Sister [facility] 37on 10-14-2022 37 Increase coreg/carvedilol to 25 mg twice a day- you have 12.5 mg tabs now so take 2 twice a day until this bottle is gone- your next refill will be the higher dose of 25 mg bid. Have labs drawn Normal [facility] Office Visiton 10-14-2022 Follow-up visit [id number] Hiram Madrid 1935 F Date Provider Department Center 10/14/2022 LESLY GASPAR SONIA Valencia Family History Problem Relation Age of Onset Hypertension Mother Lupus Mother Coronary artery disease Mother Heart attack Mother Hypertension Father Aneurysm Father Coronary artery disease Father Hypertension Sister Lupus Sister Family Status - Relation Status Age at Mother Father Sister Level of Service:02047 DE OFFICE/OUTPATIENT ESTABLISHED MOD MDM 30-39 MIN [facility] Consent for Procedure/Surger yon 09-07-2022 Consent for Procedure/Surgery [id number]. 00CD:127 [facility] Ambulatory Visit Summaryon 0 09-06-2022 Ambulatory Visit Summary HIRAM MADRID :1935 Visit Date:09/06/2022 Ambulatory Visit Instructions Your Diagnosis Foreign body in bladder Hydronephrosis, right Ureteral stenosis Your Care Team Attending Physician - Raymond HARRISON MD Primary Care Physician - Addy Daniels MD This Is Your Medications List ciprofloxacin (Cipro 250 mg Tab) Contact prescribing physician if questions or concerns amlodipine (amLODIPine 10 mg Tab) aspirin (aspirin 81 mg oral capsule) carvedilol hydrochlorothiazide levothyroxine (levothyroxine 88 mcg (0.088 mg) Tab) losartan (losartan 100 mg Tab) potassium chloride (Potassium Chloride (Gbn-Efnp-Wak 10)) pravastatin (pravastatin 80 mg Tab) Procedures [...] Follow these instructions at home: ? Take ader-twm-vqmsobd and prescription medicines only as told by [...] provider. Document Revised: 05/26/2020 Document Reviewed: 05/26/2020 [employer] Patient Education ? 2022 [employer] staff. [facility] Urology Office/Clinic Noteon 09-06-2022 Urology Office/Clinic Note [...] [facility] [address], [place] [address]- Additional Instructions: 3 mos no labs Patient Education Hydronephrosis Josefa Garcia, personally scribed for Dr. Harrison on 09/06/2022 12:58:53. . Documentation recorded by the scribeJosefa, accurately reflects the services(s) I performed and [...] Tab losartan 100 mg Tab Potassium Chloride (Xyw-Onas-Gmc 10), Oral, BID pravastatin 80 mg Tab [...] inactivated 12/06/2016 Rec (more content not included)... [facility] Comment on above: Result Comment: Elec tronically Signed By: Raymond HARRISON MD\.br\Date and Time Signed: 09/06/22 13:02 EDT\.br\Electronically Co-Signed By: Josefa Stewart\.br\Date and Time Co-Signed: 09/06/22 13:01 EDT Operative Reporton Operative Report [id number] CD:127 [facility] RAD - MISCon 08-12-2022 RAD - MISC [id number] CD:127 [facility] Ambulatory Visit Summaryon 0 08-10-2022 Ambulatory Visit Summary HIRAM MADRID :1935 Visit Date:08/10/2022 Ambulatory Visit Instructions Your Diagnosis Hydronephrosis, right Aspirin long-term use Tests Performed Urnls Dip Stick Auto w/o Microscopy POC 18865 Your Care Team Attending Physician - Raymond HARRISON MD Primary Care Physician - Addy Daniels MD This Is Your Medications List Contact prescribing physician if questions or concerns amlodipine (amLODIPine 10 mg Tab) aspirin (aspirin 81 mg oral capsule) carvedilol hydrochlorothiazide levothyroxine (levothyroxine 88 mcg (0.088 mg) Tab) losartan (losartan 100 mg Tab) potassium chloride (Potassium Chloride (Ern-Zxtb-Ygy 10)) pravastatin (pravastatin 80 mg Tab) Procedures [...] [facility] [address], [place] [address]- Medications What How Much When Instructions Unchanged [...] or concerns Unchanged potassium chloride (Potassium Chloride (Fqq-Qkaw-Iwy 10)) 2 times a day Contact prescribing physician if questions or concerns Unchanged pravastatin (pravastatin 80 mg Tab) 30 EA, TAKE 1 TABLET BY MOUTH ONCE DAILY Contact prescribing physician if questions or concerns Test Results Urnls Dip Stick Auto w/o Microscopy POC 57826 (08/10/2022) Bilirubin Urine Dipstick - Negative Blood Urine Dipstick - Negative Glucose Urine Dipstick - Negative Ketones Urine Dipstick - Negative Leukocytes Urine Dipstick - Trace Nitrite Urine Dipstick - Negative Protein Urine Dipstick - Negative Specific [place] Urine Dipstick - 1.025 Urine Appearance Urine [...] what caus (more content not included)... Normal [facility] Ambulatory Visit Summary HIRAM MADRID :1935 Visit Date:08/10/2022 Ambulatory Visit Instructions Your Diagnosis Hydronephrosis, right Aspirin long-term use Tests Performed Urnls Dip Stick Auto w/o Microscopy POC 39587 Your Care Team Attending Physician - Raymond HARRISON MD Primary Care Physician - Addy Daniels MD This Is Your Medications List Contact prescribing physician if questions or concerns amlodipine (amLODIPine 10 mg Tab) aspirin (aspirin 81 mg oral capsule) carvedilol hydrochlorothiazide levothyroxine (levothyroxine 88 mcg (0.088 mg) Tab) losartan (losartan 100 mg Tab) potassium chloride (Potassium Chloride (Mdw-Fhoc-Tdl 10)) pravastatin (pravastatin 80 mg Tab) Procedures [...] When: Where: [facility] [address], [place] [address]- Medications What How Much When Instructions Unchanged [...] or concerns Unchanged potassium chloride (Potassium Chloride (Yvi-Dyty-Qbz 10)) 2 times a day Contact prescribing physician if questions or concerns Unchanged pravastatin (pravastatin 80 mg Tab) 30 EA, TAKE 1 TABLET BY MOUTH ONCE DAILY Contact prescribing physician if questions or concerns Test Results Urnls Dip Stick Auto w/o Microscopy POC 58903 (08/10/2022) Bilirubin Urine Dipstick - Negative Blood Urine Dipstick - Negative Glucose Urine Dipstick - Negative Ketones Urine Dipstick - Negative Leukocytes Urine Dipstick - Trace Nitrite Urine Dipstick - Negative Protein Urine Dipstick - Negative Specific [place] Urine Dipstick - 1.025 Urine Appearance Urine [...] what caus (more content not included)... Normal [facility] Consent for Procedure/Surger yon 08-10-2022 Consent for Procedure/Surgery [id number] CD:[address] [facility] Formson 08-10-2022 Forms [id number] CD:[address] [facility] Patient Educationon 08-11-19 Patient Education Urology [...] Follow these instructions at home: ? Take hupd-jfu-cabfzku and prescription medicines only as told by [...] provider. Document Revised: 05/26/2020 Document Reviewed: 05/26/2020 [employer] Patient Education ? 2022 [employer] Normal [facility] Urology Office/Clinic Noteon 08-10-2022 Urology Office/Clinic Note Chief Complaint Kidney stones HPI Staff New Pt follow up to [facility] on 08/05/[address] [...] yo female new pt following up to [facility] ER visit on 08/05/22 due to nausea, [...] General anesthesia. 2. Aspirin long-term use (Z79.82: retirement (current) use of aspirin) No other BTs. Follow-up With When Contact Information CHRISTY DUMONT, Raymond Mckeon, URL [facility] [address], [place] [address]- Additional Instructions: schedule R URS, possible laser litho/basket extraction, stent placement Patient Education Hydronephrosis I, Josefa Stewart, personally scribed for Dr. Harrison on 08/10/2022 09:37:50. . Documentation recorded by the Josefa wadsworth, accurately reflects the services(s) I performed and decisions made by me. Authenticated by Dr. Harrison on 08/10/2022 09:39:43. Problem List/Past Medical History Ongoing Arthritis Aspirin long-term use Atrial fibrillation Deafness Hydronephrosis, right Hyperlipidemia Hypertension Kidney stone Neuropathy Syncope Thyroid disease Historical No qualifyin (more content not included)... Normal [facility] Comment on above: Result Comment: Elec tronically Signed By: Raymond HARRISON MD\.br\Date and Time Signed: 08/10/22 09:39 EDT\.br\Electronically Co-Signed By: Josefa Stewart\.br\Date and Time Co-Signed: 08/10/22 09:38 EDT XR KUBon 08-09-2022 XR KUB [facility] Main [address] [address] XRay Report Signed Patient: Hiram Madrid MR#: [id number] : 1935 Acct:[id number] Age/Sex: 86 / F ADM Date: 08/09/22 Loc: XD Room: Type: [facility] Attending Dr: Raymond Harrison MD Copies [...] Lopez Jr., D.OYou08/09/2022 3:58 PM Dictation Location: [place] [address] Transcribed By: [facility] 08/09/22 1558 Dictated By: Kameron Lopez Jr, DO 08/09/22 1555 Signed By: 08/09/22 [address] [facility] [address] abdomen pelvis wo conon 0 08-06-2022 CT abdomen pelvis wo [facility] Main [address] [address] [address] Scan Report Signed Patient: Hiram Madrid MR#: [id number] : 1935 Acct:[id number] Age/Sex: 86 / F ADM Date: 08/05/22 Loc: ER Room: Type: [facility] ER Attending Dr: Copies to: Camacho [...] Faye Wyman M.D.08/06/2022 8:43 AM Dictation Location: [place] [address] Transcribed By: DORETHA 08/06/2243 Dictated By: Faye Wyman MD 08/06/2230 Signed By: 08/06/22842 Normal [facility] Alanine aminotransferase [En zymatic activity/volume] in Serum or PlasmaOrdered By: Camacho Ladd on 08-05-2022 ALT [Catalytic activity/Vol] 16 U/L 7-52 [facility] Albumin [Mass/volume] in Ser um or Plasma by Bromocresol green (BCG) dye binding methoOrdered By: Camacho Ladd on 08-05-2022 Albumin BCG dye [Mass/Vol] 4.4 g/dL 3.5-5.7 [facility] Alkaline phosphatase [Enzyma tic activity/volume] in Serum or PlasmaOrdered By: Camacho Ladd on 08-05-2022 ALP [Catalytic activity/Vol] 61 U/L 34-104 [facility] Aspartate aminotransferase [ Enzymatic activity/volume] in Serum or PlasmaOrdered By: Camacho Ladd on 08-05-2022 AST [Catalytic activity/Vol] 21 U/L 13-39 [facility] Automated erythrocytes count in urine sediment (number/area)Ordered By: Camacho Ladd on 08-05-2022 RBC Auto (Urine sed) [#/Area] 0-1 [HPF] 0-4 [facility] Automated leukocytes count i n urine sediment (number/area)Ordered By: Camacho Ladd on 08-05-2022 WBC Auto (Urine sed) [#/Area] 1-2 [HPF] 0-4 [facility] Basic Metabolic Panelon 07-21 Anion gap [Moles/Vol] 17.8 mmol/L High 6.0-15.0 [facility] Comment on above: Performed By: #### H EPATIC, LIPASE, CBC, BMP, HS TROP #### [facility] [address] [place] [address] Calcium [Mass/Vol] 9.7 mg/dL Normal 8.6-10.3 [facility] Comment on above: Performed By: #### H EPATIC, LIPASE, CBC, BMP, HS TROP #### [facility] [address] Chloride [Moles/Vol] 87 mmol/L Low 98-107 [facility] Comment on above: Performed By: #### H EPATIC, LIPASE, CBC, BMP, HS TROP #### [facility] [address] CO2 [Moles/Vol] 23.2 mmol/L Normal 21.0-31.0 [facility] Comment on above: Performed By: #### H EPATIC, LIPASE, CBC, BMP, HS TROP #### [facility] [address] Creatinine [Mass/Vol] 1.03 mg/dL Normal 0.60-1.20 [facility] Comment on above: Performed By: #### H EPATIC, LIPASE, CBC, BMP, HS TROP #### [facility] [address] Creatinine Clr Calc Pharmacy 35.13 [facility] Comment on above: Performed By: #### H EPATIC, LIPASE, CBC, BMP, HS TROP #### [facility] [address] [place] [address] [place] GFR/1.73 sq M.predicted MDRD (S/P/Bld) [Vol rate/Area] 53.284 mL/min/{1.73_m2} [facility] Comment on above: Performed By: #### H EPATIC, LIPASE, CBC, BMP, HS TROP #### [facility] [address] [place] [address] [place] Glucose [Mass/Vol] 156 mg/dL High 70-100 [facility] Comment on above: Result Comment: [place] Glucose Reference Range is dependent on time and content of last meal. Glucose of more than 200 mg/dL in a nonstressed, ambulatory subject supports the diagnosis of Diabetes Mellitus. ADA recommended reference range Performed By: #### H EPATIC, LIPASE, CBC, BMP, HS TROP #### [facility] [address] Potassium [Moles/Vol] 3.0 mmol/L Low 3.5-5.1 [facility] Comment on above: Performed By: #### H EPATIC, LIPASE, CBC, BMP, HS TROP #### [facility] [address] Sodium [Moles/Vol] 125 mmol/L Low 136-145 [facility] Comment on above: Performed By: #### H EPATIC, LIPASE, CBC, BMP, HS TROP #### [facility] [address] Urea nitrogen [Mass/Vol] 12 mg/dL Normal 7-25 [facility] Comment on above: Performed By: #### H EPATIC, LIPASE, CBC, BMP, HS TROP #### [facility] [address] Basophils Auto (Bld) [#/Vol] Ordered By: Camacho Ladd on 08-05-2022 Basophils (Bld) [#/Vol] 0.1 10*3/uL 0.0-0.2 [facility] Basophils/100 WBC Auto (Bld) Ordered By: Camacho Ladd on 08-05-2022 Basophils/100 WBC (Bld) 0.4 % . F [facility] Bilirubin Test strip Ql (U)O rdered By: Camacho Ladd on 08-05-2022 Bilirubin Ql (U) Negative Negative [facility] Bilirubin.direct [Mass/volum e] in Serum or PlasmaOrdered By: Camacho Ladd on 08-05-2022 Bilirubin.direct [Mass/Vol] 0.10 mg/dL 0.03-0.18 [facility] Bilirubin.total [Mass/volume ] in Serum or PlasmaOrdered By: Camacho Ladd on 08-05-2022 Bilirubin [Mass/Vol] 0.7 mg/dL 0.3-1.0 [facility] Calcium [Mass/volume] in Ser um or PlasmaOrdered By: Camacho Ladd on 08-05-2022 Calcium [Mass/Vol] 9.7 mg/dL 8.6-10.3 [facility] Carbon dioxide, total [Moles /volume] in Serum or PlasmaOrdered By: Camacho Ladd on 08-05-2022 CO2 [Moles/Vol] 23.2 mmol/L 21.0-31.0 [facility] Chloride [Moles/volume] in S willa or PlasmaOrdered By: Camacho Ladd on 08-05-2022 Chloride [Moles/Vol] 87 mmol/L 98-107 [facility] Color Auto (U)Ordered By: Ender Ladd on 08-05-2022 Color (U) Yellow Yellow [facility] Complete Blood Count Auto Di ffon 08-05-2022 Basophils (Bld) [#/Vol] 0.1 10*3/uL Normal 0.0-0.2 [facility] Comment on above: Result Comment: PERF ORMED BY: [place] [address] PATHOLOGIST GENETICIST GOSIA MCADAMS M.D. Performed By: #### H EPATIC, LIPASE, CBC, BMP, HS TROP #### [address] Basophils/100 WBC (Bld) 0.4 % Normal . [facility] Comment on above: Performed By: #### H EPATIC, LIPASE, CBC, BMP, HS TROP #### [facility] [address] [place] [address] [place] Eosinophils (Bld) [#/Vol] 0.1 10*3/uL Normal 0.0-0.45 [facility] Comment on above: Performed By: #### H EPATIC, LIPASE, CBC, BMP, HS TROP #### [facility] [address] Eosinophils/100 WBC (Bld) 0.6 % Normal . [facility] Comment on above: Performed By: #### H EPATIC, LIPASE, CBC, BMP, HS TROP #### [address] Erythrocyte distribution width (RBC) [Ratio] 13.6 % Normal 11.9-15.3 [facility] Comment on above: Performed By: #### H EPATIC, LIPASE, CBC, BMP, HS TROP #### [address] Hematocrit (Bld) [Volume fraction] 37.3 % Normal 34.0-46.4 [facility] Comment on above: Performed By: #### H EPATIC, LIPASE, CBC, BMP, HS TROP #### [address] Hemoglobin (Bld) [Mass/Vol] 13.0 g/dL Normal 11.8-15.4 [facility] Comment on above: Performed By: #### H EPATIC, LIPASE, CBC, BMP, HS TROP #### [address] Lymphocytes (Bld) [#/Vol] 3.1 10*3/uL Normal 1.00-4.8 [facility] Comment on above: Performed By: #### H EPATIC, LIPASE, CBC, BMP, HS TROP #### [address] Lymphocytes/100 WBC (Bld) 21.9 % Normal . [facility] Comment on above: Performed By: #### H EPATIC, LIPASE, CBC, BMP, HS TROP #### [address] MCH (RBC) [Entitic mass] 31.6 pg Normal 24.7-34.3 [facility] Comment on above: Performed By: #### H EPATIC, LIPASE, CBC, BMP, HS TROP #### [address] MCV (RBC) [Entitic vol] 90.4 fL Normal 80-100 [facility] Comment on above: Performed By: #### H EPATIC, LIPASE, CBC, BMP, HS TROP #### [address] Mean Corpuscular HGB Conc 35.0 g/dL Normal 32.0-35.0 [facility] Comment on above: Performed By: #### H EPATIC, LIPASE, CBC, BMP, HS TROP #### [address] Monocytes (Bld) [#/Vol] 1.4 10*3/uL High 0.0-0.8 [facility] Comment on above: Performed By: #### H EPATIC, LIPASE, CBC, BMP, HS TROP #### [address] Monocytes/100 WBC (Bld) 20.58 % High 0.00-20.[address] [facility] Comment on above: Result Comment: For adults in ED, MDW > 20.0 may be associated with a higher risk of sepsis during the first 12 hrs of hospital admission Performed By: #### H EPATIC, LIPASE, CBC, BMP, HS TROP #### [address] Monocytes/100 WBC (Bld) 9.6 % Normal . [facility] Comment on above: Performed By: #### H EPATIC, LIPASE, CBC, BMP, HS TROP #### [address] Neutrophils (Bld) [#/Vol] 9.6 10*3/uL High 1.8-7.7 [facility] Comment on above: Performed By: #### H EPATIC, LIPASE, CBC, BMP, HS TROP #### [address] Neutrophils/100 WBC (Bld) 67.5 % Normal . [facility] Comment on above: Performed By: #### H EPATIC, LIPASE, CBC, BMP, HS TROP #### [address] NRBC% 0.1 /100{WBC} Normal 0-0.5 [facility] Comment on above: Performed By: #### H EPATIC, LIPASE, CBC, BMP, HS TROP #### [address] Platelet mean volume (Bld) [Entitic vol] 7.2 fL Normal 6.3-10.7 [facility] Comment on above: Performed By: #### H EPATIC, LIPASE, CBC, BMP, HS TROP #### [facility] [address] Platelets (Bld) [#/Vol] 500 10*3/uL High 150-450 [facility] Comment on above: Performed By: #### H EPATIC, LIPASE, CBC, BMP, HS TROP #### [facility] [address] RBC (Bld) [#/Vol] 4.13 10*6/uL Normal 3.60-5.00 [facility] Comment on above: Performed By: #### H EPATIC, LIPASE, CBC, BMP, HS TROP #### [address] WBC (Bld) [#/Vol] 14.2 10*3/uL High 3.8-11.6 [facility] Comment on above: Performed By: #### H EPATIC, LIPASE, CBC, BMP, HS TROP #### [address] Creatinine [Mass/volume] in Serum or PlasmaOrdered By: Camacho Ladd on 08-05-2022 Creatinine [Mass/Vol] 1.03 mg/dL 0.60-1.20 [facility] Dipstick and Microscopicon 0 08-05-2022 Appearance (U) Cloudy Critically abnormal Clear [facility] Comment on above: Order Comment: Name Collection Type:: Clean-Voided Midstream Performed By: #### A DDONUAPLUS #### [address] Bacteria,Urine None Seen Normal None Seen [facility] Comment on above: Order Comment: Name Collection Type:: Clean-Voided Midstream Performed By: #### A DDONUAPLUS #### [place] [address] [place] Bilirubin,Urine Negative Normal Negative [facility] Comment on above: Order Comment: Name Collection Type:: Clean-Voided Midstream Performed By: #### A DDONUAPLUS #### [facility] [address] [place] [address] [place] Color (U) Yellow Normal Yellow [facility] Comment on above: Order Comment: Name Collection Type:: Clean-Voided Midstream Performed By: #### A DDONUAPLUS #### [facility] [address] [place] [address] [place] Glucose Ql (U) Normal Normal Normal [facility] Comment on above: Order Comment: Name Collection Type:: Clean-Voided Midstream Performed By: #### A DDONUAPLUS #### [place] [address] [place] Hyaline Casts,Urine None Seen Normal 0-8 [facility] Comment on above: Order Comment: Name Collection Type:: Clean-Voided Midstream Result Comment: PERF ORMED BY: [place] [address] PATHOLOGIST GENETICIST GOSIA MCADAMS M.D. Performed By: #### A DDONUAPLUS #### [facility] [address] [place] [address] [place] Ketones Ql (U) Negative Normal Negative [facility] Comment on above: Order Comment: Name Collection Type:: Clean-Voided Midstream Performed By: #### A DDONUAPLUS #### [facility] [address] [place] [address] [place] Leukocyte esterase Test strip Ql (U) 1+ High Negative [facility] Comment on above: Order Comment: Name Collection Type:: Clean-Voided Midstream Performed By: #### A DDONUAPLUS #### [facility] [address] [place] [address] [place] Nitrite,Urine Negative Normal Negative [facility] Comment on above: Order Comment: Name Collection Type:: Clean-Voided Midstream Performed By: #### A DDONUAPLUS #### [facility] [address] [place] [address] [place] Occult Blood,Urine Negative Normal Negative [facility] Comment on above: Order Comment: Name Collection Type:: Clean-Voided Midstream Result Comment: PERF ORMED BY: [place] [address] PATHOLOGIST GENETICIST GOSIA MCADAMS M.D. Performed By: #### A DDONUAPLUS #### [address] pH (U) 7.0 [pH] Normal 5.0-9.0 [facility] Comment on above: Order Comment: Name Collection Type:: Clean-Voided Midstream Performed By: #### A DDONUAPLUS #### [address] Protein,Urine Negative Normal Negative [facility] Comment on above: Order Comment: Name Collection Type:: Clean-Voided Midstream Performed By: #### A DDONUAPLUS #### [address] RBC LM.HPF (Urine sed) [#/Area] 0 /[HPF] Normal 0-4 [facility] Comment on above: Order Comment: Name Collection Type:: Clean-Voided Midstream Performed By: #### A DDONUAPLUS #### [address] Specificy [place],Urine 1.009 Normal 1.001-1.030 [facility] Comment on above: Order Comment: Name Collection Type:: Clean-Voided Midstream Performed By: #### A DDONUAPLUS #### [address] Squamous Epithelial Cell,Urine 0-1 Normal 0-2 [facility] Comment on above: Order Comment: Name Collection Type:: Clean-Voided Midstream Performed By: #### A DDONUAPLUS #### [address] Urobilinogen,Urine Normal Normal Normal [facility] Comment on above: Order Comment: Name Collection Type:: Clean-Voided Midstream Performed By: #### A DDONUAPLUS #### [facility] [address] WBC,Urine 1-2 Normal 0-4 [facility] Comment on above: Order Comment: Name Collection Type:: Clean-Voided Midstream Performed By: #### A DDONUAPLUS #### [facility] [address] [place] [address] ECG 12 lead ECGon 08-05-2022 ECG 12 lead ECG [facility] [place] [address] [place] [address] Electrocardiograph Report Signed Patient: Hiram Madrid MR#: [id number] : 1935 Acct:[id number] Age/Sex: 86 / F ADM Date: 08/05/22 Loc: ER Room: Type: [facility] ER Attending Dr: Ordering Provider: Camacho [...] branch block Confirmed by Camacho Ladd DO ([id number]) on 08/06/2022 1:49:12 AM Referred By: Electronically Signed By:Camacho Ladd DO Transcribed By: MUS Signed By Camacho Ladd DO [id number] Normal [facility] Eosinophils Auto (Bld) [#/Vo l]Ordered By: Camacho Ladd on 08-05-2022 Eosinophils (Bld) [#/Vol] 0.1 10*3/uL 0.0-0.45 [facility] Eosinophils/100 WBC Auto (Bl d)Ordered By: Camacho Ladd on 08-05-2022 Eosinophils/100 WBC (Bld) 0.6 % . [facility] Erythrocyte distribution wid th Auto (RBC) [Ratio]Ordered By: Camacho Ladd on 08-05-2022 Erythrocyte distribution width (RBC) [Ratio] 13.6 % 11.9-15.3 [facility] Globulin Calc (S) [Mass/Vol] Ordered By: Camacho Ladd on 08-05-2022 Globulin (S) [Mass/Vol] 2.9 g/dL [facility] Glucose [Mass/volume] in Ser um or PlasmaOrdered By: Camacho Ladd on 08-05-2022 Glucose [Mass/Vol] 156 mg/dL 70-100 [facility] Comment on above: ADA recommended refe rence rangeRandom Glucose Reference Range is dependent on time and content of last meal. Glucose of more than 200 mg/dL in a nonstressed, ambulatory subject supports the diagnosis of Diabetes Mellitus. Hematocrit Auto (Bld) [Volum e fraction]Ordered By: Camacho Ladd on 08-05-2022 Hematocrit (Bld) [Volume fraction] 37.3 % 34.0-46.4 [facility] Hemoglobin [Mass/volume] in BloodOrdered By: Camacho Ladd on 08-05-2022 Hemoglobin (Bld) [Mass/Vol] 13.0 g/dL 11.8-15.4 [facility] Hepatic Panelon 08-05-2022 Albumin [Mass/Vol] 4.4 g/dL Normal 3.5-5.7 [facility] Comment on above: Performed By: #### H EPATIC, LIPASE, CBC, BMP, HS TROP #### [facility] [address] Albumin/Globulin [Mass ratio] 1.5 {ratio} Normal [facility] Comment on above: Performed By: #### H EPATIC, LIPASE, CBC, BMP, HS TROP #### [facility] [address] [place] [id number] [place] ALP [Catalytic activity/Vol] 61 U/L Normal 34-104 [facility] Comment on above: Performed By: #### H EPATIC, LIPASE, CBC, BMP, HS TROP #### [facility] [address] [place] [id number] [place] ALT [Catalytic activity/Vol] 16 U/L Normal 7-52 [facility] Comment on above: Performed By: #### H EPATIC, LIPASE, CBC, BMP, HS TROP #### [facility] [address] AST [Catalytic activity/Vol] 21 U/L Normal 13-39 [facility] Comment on above: Performed By: #### H EPATIC, LIPASE, CBC, BMP, HS TROP #### [facility] [address] Bilirubin [Mass/Vol] 0.7 mg/dL Normal 0.3-1.0 [facility] Comment on above: Performed By: #### H EPATIC, LIPASE, CBC, BMP, HS TROP #### [address] Bilirubin,Indirect 0.6 mg/dL Normal [facility] Comment on above: Performed By: #### H EPATIC, LIPASE, CBC, BMP, HS TROP #### [address] Bilirubin.indirect [Mass/Vol] 0.10 mg/dL Normal 0.03-0.18 [facility] Comment on above: Performed By: #### H EPATIC, LIPASE, CBC, BMP, HS TROP #### [address] Globulin (S) [Mass/Vol] 2.9 g/dL Normal [facility] Comment on above: Performed By: #### H EPATIC, LIPASE, CBC, BMP, HS TROP #### [address] Protein [Mass/Vol] 7.3 g/dL Normal 6.4-8.9 [facility] Comment on above: Performed By: #### H EPATIC, LIPASE, CBC, BMP, HS TROP #### [address] Ketones Auto test strip (U) [Mass/Vol]Ordered By: Camacho Ladd on 08-05-2022 Ketones (U) [Mass/Vol] Negative Negative [facility] - UrinalysisOrder ed By: Camacho Ladd on 08-05-2022 Hyaline casts LM Ql (Urine sed) None seen [LPF] 0-8 [facility] Leukocytes [#/volume] correc sofiya for nucleated erythrocytes in Blood by Automated counOrdered By: Camacho Ladd on 08-05-2022 WBC corrected for nucl RBC Auto (Bld) [#/Vol] 14.2 10*3/uL 3.8-11.6 [facility] Lipaseon 08-05-2022 Lipase [Catalytic activity/Vol] 23.0 U/L Normal 11.0-82.0 [facility] Comment on above: Result Comment: PERF ORMED BY: [place] [address] PATHOLOGIST GENETICIST GOSIA MCADAMS M.D. Performed By: #### H EPATIC, LIPASE, CBC, BMP, HS TROP #### [address] Lipase [Enzymatic activity/v olume] in Serum or PlasmaOrdered By: Camacho Ladd on 08-05-2022 Lipase [Catalytic activity/Vol] 23.0 U/L 11.0-82.0 [facility] Lymphocytes Auto (Bld) [#/Vo l]Ordered By: Camacho Ladd on 08-05-2022 Lymphocytes (Bld) [#/Vol] 3.1 10*3/uL 1.00-4.8 [facility] Lymphocytes/100 WBC Auto (Bl d)Ordered By: Camacho Ladd on 08-05-2022 Lymphocytes/100 WBC (Bld) 21.9 % . [facility] MCH Auto (RBC) [Entitic mass ]Ordered By: Camacho Ladd on 08-05-2022 MCH (RBC) [Entitic mass] 31.6 pg 24.7-34.3 [facility] MCHC Auto (RBC) [Mass/Vol]Or dered By: Camacho Ladd on 08-05-2022 MCHC (RBC) [Mass/Vol] 35.0 g/dL 32.0-35.0 [facility] MCV Auto (RBC) [Entitic vol] Ordered By: Camacho Ladd on 08-05-2022 MCV (RBC) [Entitic vol] 90.4 fL 80-100 [facility] Monocyte distribution width [Entitic volume] in Blood by AutomatedOrdered By: Camacho Ladd on 08-05-2022 Monocyte distribution width Auto (Bld) [Entitic vol] 20.58 % 0.00-20.00 [facility] Comment on above: For adults in ED, MD W > 20.0 may be associated with a higher risk of sepsis during the first 12 hrs of hospital admission Monocytes Auto (Bld) [#/Vol] Ordered By: Camacho Ladd on 08-05-2022 Monocytes (Bld) [#/Vol] 1.4 10*3/uL 0.0-0.8 [facility] Monocytes/100 WBC Auto (Bld) Ordered By: Camacho Ladd on 08-05-2022 Monocytes/100 WBC (Bld) 9.6 % . [facility] Neutrophils Auto (Bld) [#/Vo l]Ordered By: Camacho Ladd on 08-05-2022 Neutrophils (Bld) [#/Vol] 9.6 10*3/uL 1.8-7.7 [facility] Neutrophils/100 WBC Auto (Bl d)Ordered By: Camacho Ladd on 08-05-2022 Neutrophils/100 WBC (Bld) 67.5 % . [facility] Nitrite Test strip Ql (U)Ord ered By: Camacho Ladd on 08-05-2022 Nitrite Ql (U) Negative Negative [facility] No Panel InformationOrdered By: Camacho Ladd on 08-05-2022 Estimated GFR (CKD-EPI) 53.284 mL/Min [facility] Creatinine Clearance (Chem 35.13 [facility] Nucleated erythrocytes [Pres ence] in Blood by Automated countOrdered By: Camacho Ladd on 08-05-2022 Nucleated RBC Auto Ql (Bld) 0.1 /100{WBC} 0-0.5 [facility] Platelet mean volume Auto (B ld) [Entitic vol]Ordered By: Camacho Ladd on 08-05-2022 Platelet mean volume (Bld) [Entitic vol] 7.2 fL 6.3-10.7 [facility] Platelets Auto (Bld) [#/Vol] Ordered By: Camacho Ladd on 08-05-2022 Platelets (Bld) [#/Vol] 500 10*3/uL 150-450 [facility] Potassium [Moles/volume] in Serum or PlasmaOrdered By: Camacho Ladd on 08-05-2022 Potassium [Moles/Vol] 3.0 mmol/L 3.5-5.1 [facility] Protein Auto test strip (U) [Mass/Vol]Ordered By: Camacho Ladd on 08-05-2022 Protein (U) [Mass/Vol] Negative Negative [facility] Protein [Mass/volume] in Ser um or PlasmaOrdered By: Camacho Ladd on 08-05-2022 Protein [Mass/Vol] 7.3 g/dL 6.4-8.9 [facility] RBC Auto (Bld) [#/Vol]Ordere d By: Camacho Ladd on 08-05-2022 RBC (Bld) [#/Vol] 4.13 10*6/uL 3.60-5.00 [facility] Serum or plasma albumin/glob ulin mass ratioOrdered By: Camacho Ladd on 08-05-2022 Albumin/Globulin [Mass ratio] 1.5 {ratio} [facility] Serum or plasma anion gap de terminationOrdered By: Camacho Ladd on 08-05-2022 Anion gap [Moles/Vol] 17.8 mmol/L 6.0-15.0 [facility] Serum or plasma non-glucuron idated bilirubin measurement (mass/volume)Ordered By: Camacho Ladd on 08-05-2022 Bilirubin.indirect [Mass/Vol] 0.6 mg/dL [facility] Sodium [Moles/volume] in Ser um or PlasmaOrdered By: Camacho Ladd on 08-05-2022 Sodium [Moles/Vol] 125 mmol/L 136-145 [facility] Specific gravity Auto test s trip (U) [Rel density]Ordered By: Camacho Ladd on 08-05-2022 Specific gravity (U) [Rel density] 1.009 1.001-1.030 [facility] Squamous epithelial cells de tection in urine sediment by light microscopyOrdered By: Camacho Ladd on 08-05-2022 Epithelial cells.squamous LM Ql (Urine sed) 0-1 [HPF] 0-2 [facility] Troponin I High Sensitivityo n 08-05-2022 Troponin I High Sensitivity 7.7 pg/mL Normal 0.0-15.0 [facility] Comment on above: Result Comment: PERF ORMED BY: [facility] [address] [place] [address] PATHOLOGIST GENETICIST GOSIA MCADAMS M.D. Performed By: #### H EPATIC, LIPASE, CBC, BMP, HS TROP #### [address] Troponin I.cardiac [Mass/vol ume] in Serum or Plasma by Detection limit <= 0.01 ng/Ordered By: Camacho Ladd on 08-05-2022 Troponin I.cardiac DL <= 0.01 ng/mL [Mass/Vol] 7.7 pg/mL 0.0-15.0 [facility] Urea nitrogen [Mass/volume] in Serum or PlasmaOrdered By: Camacho Ladd on 08-05-2022 Urea nitrogen [Mass/Vol] 12 mg/dL 7-25 [facility] Urine bacteria detection by automated methodOrdered By: Camacho Ladd on 08-05-2022 Bacteria Auto Ql (U) None seen None Seen [facility] Urine clarity by refractomet ry automatedOrdered By: Camacho Ladd on 08-05-2022 Clarity Refractometry automated (U) Cloudy Clear [facility] Urine glucose measurement by automated test strip (mass/volume)Ordered By: Camacho Ladd on 08-05-2022 Glucose Auto test strip (U) [Mass/Vol] Normal mg/dL Normal [facility] Urine hemoglobin detection b y automated test stripOrdered By: Camacho Ladd on 08-05-2022 Hemoglobin Auto test strip Ql (U) Negative Negative [facility] Urine leukocyte esterase det ection by automated test stripOrdered By: Camacho Ladd on 08-05-2022 Leukocyte esterase Auto test strip Ql (U) 1+ Negative [facility] Urobilinogen Auto test strip (U) [Mass/Vol]Ordered By: Camacho Allison on 08-05-2022 Urobilinogen (U) [Mass/Vol] Normal mg/dL Normal [facility] WBC Auto (Bld) [#/Vol]Ordere d By: Camacho Allison on 08-05-2022 WBC (Bld) [#/Vol] 14.2 10*3/uL 3.8-11.6 [facility] pH Auto test strip (U)Ordere d By: Camacho Ladd on 08-05-2022 pH (U) 7.0 [pH] 5.0-9.0 [facility] BNPon 06-13-2022 Natriuretic peptide B (Bld) [Mass/Vol] 142.0 pg/mL Normal <=1,800.0 [facility] Comment on above: Performed By: #### T SH, BMP #### [facility] [address] [place] [address] Dr. Tasha Dodson CBC AUTO DIFFon 06-13-2022 BASO # 0.1 103/ul Normal 0.0-0.1 [facility] Comment on above: Performed By: #### T SH, BMP #### [facility] [address] [place] [address] Dr. Tasha Dodson Basophils/100 WBC (Bld) 1.0 % Normal 0.2-2.0 [facility] Comment on above: Performed By: #### T SH, BMP #### [facility] [address] [place] [address] Dr. Tasha Dodson EO # 0.3 103/ul Normal 0.0-0.7 [facility] Comment on above: Performed By: #### T SH, BMP #### [facility] [address] [place] [address] Dr. Tasha Dodson Eosinophils/100 WBC (Bld) 2.6 % Normal 0.9-7.0 [facility] Comment on above: Performed By: #### T SH, BMP #### [facility] [address] [place] [address] Dr. Tasha Dodson Erythrocyte distribution width (RBC) [Ratio] 13.4 % Normal 11.0-15.0 [facility] Comment on above: Performed By: #### T SH, BMP #### [facility] [address] [place] [address] Dr. Tasha Dodson Hematocrit (Bld) [Volume fraction] 39.5 % Normal 36.0-48.0 [facility] Comment on above: Performed By: #### T SH, BMP #### [facility] [address] [place] [address] Dr. Tasha Dodson Hemoglobin (Bld) [Mass/Vol] 13.1 g/dL Normal 12.0-16.0 [facility] Comment on above: Performed By: #### T SH, BMP #### [facility] [address] [place] [address] Dr. Tasha Dodson IG # 0.07 10e3/ul Critically high 0.00-0.03 [facility] Comment on above: Performed By: #### T SH, BMP #### [facility] [address] [place] [address] Dr. Tasha Dodson IG % 0.6 % Critically high 0.0-0.5 [facility] Comment on above: Performed By: #### T SH, BMP #### [facility] [address] [place] [address] Dr. Tasha Dodson LYMPH # 2.5 103/ul Normal 1.2-3.8 [facility] Comment on above: Performed By: #### T SH, BMP #### [facility] [address] [place] [address] Dr. Tasha Dodson Lymphocytes/100 WBC (Bld) 22.9 % Normal 20.5-60.0 [facility] Comment on above: Performed By: #### T SH, BMP #### [facility] [address] [place] [address] Dr. Tasha Dodson MANUAL DIFF REQ NO Normal [facility] Comment on above: Performed By: #### T SH, BMP #### [facility] [address] [place] [address] Dr. Tasha Dodson MCH (RBC) [Entitic mass] 30.7 pg Normal 26.7-34.0 [facility] Comment on above: Performed By: #### T SH, BMP #### [facility] [address] [place] [address] Dr. Tasha Dodson MCHC (RBC) [Mass/Vol] 33.2 g/dL Normal 29.9-35.2 [facility] Comment on above: Performed By: #### T SH, BMP #### [facility] [address] [place] [address] Dr. Tasha Dodson MCV (RBC) [Entitic vol] 92.5 fL Normal 81.0-99.0 [facility] Comment on above: Performed By: #### T SH, BMP #### [facility] [address] [place] [address] Dr. Tasha Dodson MONO # 0.8 103/ul Normal 0.3-0.8 [facility] Comment on above: Performed By: #### T SH, BMP #### [facility] [address] [place] [address] Dr. Tasha Dodson Monocytes/100 WBC (Bld) 7.0 % Normal 1.7-12.0 [facility] Comment on above: Performed By: #### T SH, BMP #### [facility] [address] [place] [address] Dr. Tasha Dodson NEUT # 7.2 103/ul Critically high 1.4-6.5 [facility] Comment on above: Performed By: #### T SH, BMP #### [facility] [address] [place] [address] Dr. Tasha Dodson Neutrophils/100 WBC (Bld) 65.9 % Normal 43.0-75.0 [facility] Comment on above: Performed By: #### T SH, BMP #### [facility] [address] [place] [address] Dr. Tasha Dodson Platelet mean volume (Bld) [Entitic vol] 8.0 fL Critically low 9.5-13.5 [facility] Comment on above: Performed By: #### T SH, BMP #### [facility] [address] [place] [address] Dr. Tasha Dodson PLT 449 103/ul Normal 150-450 [facility] Comment on above: Performed By: #### T SH, BMP #### [facility] [address] [place] [address] Dr. Tasha oDdson RBC 4.27 106/ul Normal 4.20-5.40 [facility] Comment on above: Performed By: #### T SH, BMP #### [facility] [address] [place] [address] Dr. Tasha Dodson WBC 10.9 103/ul Normal 4.0-11.0 [facility] Comment on above: Performed By: #### T SH, BMP #### [facility] [address] [place] [address] Dr. Tasha Dodson FREE THYROXINE INDEX T7on FTI 3.67 Normal 1.30-4.50 [facility] Comment on above: Performed By: #### T SH, BMP #### [facility] [address] [place] [address] Dr. Tasha Dodson T3U 36.0 % Normal 30.0-39.0 [facility] Comment on above: Performed By: #### T SH, BMP #### [facility] [address] [place] [address] Dr. Tasha Dodson T4 [Mass/Vol] 10.20 ug/dL Normal 4.80-13.90 [facility] Comment on above: Performed By: #### T SH, BMP #### [facility] [address] [place] [address] Dr. Tasha Dodson PROF CHEM 8 (BAS METB)on Anion gap [Moles/Vol] 13.8 mmol/L Normal [facility] Comment on above: Performed By: #### T SH, BMP #### [facility] [address] [place] [address] Dr. Tasha Dodson Calcium [Mass/Vol] 9.8 mg/dL Normal 8.5-10.1 [facility] Comment on above: Performed By: #### T SH, BMP #### [facility] [address] [address] [address] Tasha Dodson Chloride [Moles/Vol] 95 mmol/L Critically low 98-107 [facility] Comment on above: Performed By: #### T SH, BMP #### [facility] [address] [address] [address] Tasha Dodson CO2 [Moles/Vol] 30.5 mmol/L Normal 21.0-32.0 [facility] Comment on above: Performed By: #### T SH, BMP #### [facility] [address] [address] [address] Tasha Dodson Creatinine [Mass/Vol] 0.78 mg/dL Normal 0.55-1.02 [facility] Comment on above: Performed By: #### T SH, BMP #### [facility] [address] [address] [address] Tasha Dodson EGFR-AF ANGOLAN >60 Normal >=60 [facility] Comment on above: Performed By: #### T SH, BMP #### [facility] [address] [address] [address] Tasha Dodson EGFR-NON AF ANGOLAN >60 Normal >=60 [facility] Comment on above: Performed By: #### T SH, BMP #### [facility] [address] [address] [address] Tasha Dodson Glucose [Mass/Vol] 108 mg/dL Critically high 74-106 [facility] Comment on above: Performed By: #### T SH, BMP #### [facility] [address] [address] [address] Tasha Dodson Potassium [Moles/Vol] 3.3 mmol/L Critically low 3.5-5.1 [facility] Comment on above: Performed By: #### T SH, BMP #### [facility] [address] [place] [address] Dr. Tasha Dodson Sodium [Moles/Vol] 136 mmol/L Normal 136-145 [facility] Comment on above: Performed By: #### T SH, BMP #### [facility] [address] [place] [address] Dr. Tasha Dodson Urea nitrogen [Mass/Vol] 11.0 mg/dL Normal 7.0-18.0 [facility] Comment on above: Performed By: #### T SH, BMP #### [facility] [address] [place] [address] Dr. Tasha Dodson Urea nitrogen/Creatinine [Mass ratio] 14.1 mg/mg Normal [facility] Comment on above: Performed By: #### T SH, BMP #### [facility] [address] [place] [address] Dr. Tasha Dodson TSHon 06-13-2022 TSH 2.583 uIU/mL Normal 0.358-3.740 [facility] Comment on above: Performed By: #### T SH, BMP #### [facility] [address] [place] [address] Dr. Tasha Dodson UA (CLEAN/CATCH) OPTICAL LATHE OPERATOR/MICRO I F IND.on 06-13-2022 Bilirubin Ql (U) Negative Normal NEGATIVE [facility] Comment on above: Performed By: #### T SH, BMP #### [facility] [address] [place] [address] Dr. Tasha Dodson Clarity (U) CLEAR Normal CLEAR [facility] Comment on above: Performed By: #### T SH, BMP #### [facility] [address] [place] [address] Dr. Tasha Dodson Color (U) LT. YELLOW Normal YELLOW [facility] Comment on above: Performed By: #### T SH, BMP #### [facility] [address] [place] [address] Dr. Tasha Dodson Glucose Ql (U) Negative Normal NEGATIVE [facility] Comment on above: Performed By: #### T SH, BMP #### [facility] [address] [place] [address] Dr. Tasha Dodson Hemoglobin Ql (U) Negative Normal NEGATIVE [facility] Comment on above: Performed By: #### T SH, BMP #### [facility] [address] [place] [address] Dr. Tasha Dodson Ketones Ql (U) Negative Normal NEGATIVE [facility] Comment on above: Performed By: #### T SH, BMP #### [facility] [address] [place] [address] Dr. Tasha Dodson LEUKOCYTES Negative Normal NEGATIVE [facility] Comment on above: Performed By: #### T SH, BMP #### [facility] [address] [place] [address] Dr. Tasha Dodson Nitrite Ql (U) Negative Normal NEGATIVE [facility] Comment on above: Performed By: #### T SH, BMP #### [facility] [address] [place] [address] Dr. Tasha Dodson pH (U) 7.0 [pH] Normal 5-9 [facility] Comment on above: Performed By: #### T SH, BMP #### [facility] [address] [place] [address] Dr. Tasha Dodson SPEC GRAVITY 1.010 Normal 1.005-<=1.[address] [facility] Comment on above: Performed By: #### T SH, BMP #### [facility] [address] [place] [address] Dr. Tasha Dodson UA PROTEIN Negative Normal NEGATIVE/ TRACE [facility] Comment on above: Performed By: #### T SH, BMP #### [facility] [address] [place] [address] Dr. Tasha Dodson UR MICRO IND NOT INDICATED Normal [facility] Comment on above: Performed By: #### T SH, BMP #### [facility] [address] [place] [address] Dr. Tasha Dodson Urobilinogen Qn (U) 0.2 {Juan'U}/dL Normal 0.2 - 1. 0 [facility] Comment on above: Performed By: #### T SH, BMP #### [facility] [address] [place] [address] Dr. Tasha Dodson ECHOCARDIO M/2D COMPLETEon 0 04-18-2022 ECHOCARDIO M/2D COMPLETE Patient: HIRAM MADRID Exam Date: 04/18/2022 : 1935 Gender:F Ordering : DR VALERIE DARDEN M.D. Admission #: [id number] Family : ADDY DANIELS . Order #: [id number] CLICK HERE TO VIEW EXAM ECHOCARDIOGRAM REPORT [...] Barragan M.D. on 04/19/2022 at 18:[address] [facility] Office Visiton 04-04-2022 Follow-up visit [id number] Hiram Madrid 1935 F Date Provider Department Center 04/04/2022 271-VALERIE DARDEN [facility] Family History Problem Relation Age of Onset Hypertension Mother Lupus Mother Coronary artery disease Mother Heart attack Mother Hypertension Father Aneurysm Father Coronary artery disease Father Hypertension Sister Lupus Sister Family Status - Relation Status Age at Mother Father Sister Level of Service:06134 DE OFFICE/OUTPATIENT ESTABLISHED MOD MDM 30-39 MIN Reason for Visit and Comments: Hyperlipidemia [182] Hypertension [023688] carotid artery stenosis [Other] 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 Comment on above: Performed By: #### C BC #### [facility] [address] [address] [address] Tasha Dodson Basophils/100 WBC (Bld) 0.6 % Normal 0.2-2.0 [facility] Comment on above: Performed By: #### C BC #### [facility] [address] [place] [address] Dr. Tasha Dodson EO # 0.1 103/ul Normal 0.0-0.7 [facility] Comment on above: Performed By: #### C BC #### [facility] [address] [place] [address] Dr. Tasha Dodson Eosinophils/100 WBC (Bld) 0.9 % Normal 0.9-7.0 [facility] Comment on above: Performed By: #### C BC #### [facility] [address] [place] [address] Dr. Tasha Dodson Erythrocyte distribution width (RBC) [Ratio] 13.0 % Normal 11.0-15.0 [facility] Comment on above: Performed By: #### C BC #### [facility] [address] [place] [address] Dr. Tasha Dodson Hematocrit (Bld) [Volume fraction] 38.5 % Normal 36.0-48.0 [facility] Comment on above: Performed By: #### C BC #### [facility] [address] [place] [address] Dr. Tasha Dodson Hemoglobin (Bld) [Mass/Vol] 13.4 g/dL Normal 12.0-16.0 [facility] Comment on above: Performed By: #### C BC #### [facility] [address] [place] [address] Dr. Tasha Dodson IG # 0.07 10e3/ul Critically high 0.00-0.03 [facility] Comment on above: Performed By: #### C BC #### [facility] [address] [address] [address] Tasha Dodson IG % 0.5 % Normal 0.0-0.5 [facility] Comment on above: Performed By: #### C BC #### [facility] [address] [place] [address] Dr. Tasha Dodson LYMPH # 2.8 103/ul Normal 1.2-3.8 [facility] Comment on above: Performed By: #### C BC #### [facility] [address] [place] [address] Dr. Tasha Dodson Lymphocytes/100 WBC (Bld) 20.5 % Normal 20.5-60.0 [facility] Comment on above: Performed By: #### C BC #### [facility] [address] [place] [address] Dr. Tasha Dodson MANUAL DIFF REQ NO Normal [facility] Comment on above: Performed By: #### C BC #### [facility] [address] [place] [address] Dr. Tasha Dodson MCH (RBC) [Entitic mass] 30.7 pg Normal 26.7-34.0 [facility] Comment on above: Performed By: #### C BC #### [facility] [address] [place] [address] Dr. Tasha Dodson MCHC (RBC) [Mass/Vol] 34.8 g/dL Normal 29.9-35.2 [facility] Comment on above: Performed By: #### C BC #### [facility] [address] [place] [address] Dr. Tasha Dodson MCV (RBC) [Entitic vol] 88.3 fL Normal 81.0-99.0 [facility] Comment on above: Performed By: #### C BC #### [facility] [address] [place], [place] [id number] Dr. Tasha Dodson MONO # 1.0 103/ul Critically high 0.3-0.8 [facility] Comment on above: Performed By: #### C BC #### [facility] [address] [place] [address] Dr. Tasha Dodson Monocytes/100 WBC (Bld) 7.4 % Normal 1.7-12.0 [facility] Comment on above: Performed By: #### C BC #### [facility] [address] [place] [address] Dr. Tasha Dodson NEUT # 9.5 103/ul Critically high 1.4-6.5 [facility] Comment on above: Performed By: #### C BC #### [facility] [address] [place] [address] Dr. Tasha Dodson Neutrophils/100 WBC (Bld) 70.1 % Normal 43.0-75.0 [facility] Comment on above: Performed By: #### C BC #### [facility] [address] [place] [address] Dr. Tasha Dodson Platelet mean volume (Bld) [Entitic vol] 8.0 fL Critically low 9.5-13.5 [facility] Comment on above: Performed By: #### C BC #### [facility] [address] [place] [address] Dr. Tasha Dodson PLT 492 103/ul Critically high 150-450 [facility] Comment on above: Performed By: #### C BC #### [facility] [address] [place] [address] Dr. Tasha Dodson RBC 4.36 106/ul Normal 4.20-5.40 [facility] Comment on above: Performed By: #### C BC #### [facility] [address] [place] [address] Dr. Tasha Dodson WBC 13.5 103/ul Critically high 4.0-11.0 [facility] Comment on above: Performed By: #### C BC #### [facility] [address] [place] [address] Dr. Tasha Dodson PROF 14(COMP METB)on 022 Albumin [Mass/Vol] 3.8 g/dL Normal 3.4-5.0 [facility] Comment on above: Performed By: #### T SH, BMP #### [facility] [address] [place] [address] Dr. Tasha Dodson Albumin/Globulin [Mass ratio] 0.9 {ratio} Normal [facility] Comment on above: Performed By: #### T SH, BMP #### [facility] [address] [place] [address] Dr. Tasha Dodson ALP [Catalytic activity/Vol] 60 U/L Normal 46-116 [facility] Comment on above: Performed By: #### T JESI, BMP #### [facility] [address] [place] [address] Dr. Tasha Dodson ALT [Catalytic activity/Vol] 26 U/L Normal 14-59 [facility] Comment on above: Performed By: #### T JESI, BMP #### [facility] [address] [place] [address] Dr. Tasha Dodson Anion gap [Moles/Vol] 8.4 mmol/L Normal [facility] Comment on above: Performed By: #### T JESI, BMP #### [facility] [address] [place] [address] Dr. Tasha Dodson AST [Catalytic activity/Vol] 19 U/L Normal 15-37 [facility] Comment on above: Performed By: #### T JESI, BMP #### [facility] [address] [place] [address] Dr. Tasha Dodson Bilirubin [Mass/Vol] 0.4 mg/dL Normal 0.2-1.0 [facility] Comment on above: Performed By: #### T SH, BMP #### [facility] [address] [place] [address] Dr. Tasha Dodson Calcium [Mass/Vol] 10.1 mg/dL Normal 8.5-10.1 [facility] Comment on above: Performed By: #### T JESI, BMP #### [facility] [address] [place] [address] Dr. Tasha Dodson Chloride [Moles/Vol] 92 mmol/L Critically low 98-107 [facility] Comment on above: Performed By: #### T SH, BMP #### [facility] [address] [place] [address] Dr. Tasha Dodson CO2 [Moles/Vol] 33.8 mmol/L Critically high 21.0-32.0 [facility] Comment on above: Performed By: #### T SH, BMP #### [facility] [address] [place] [address] Dr. Tasha Dodson Creatinine [Mass/Vol] 0.67 mg/dL Normal 0.55-1.02 [facility] Comment on above: Performed By: #### T SH, BMP #### [facility] [address] [place] [address] Dr. Tasha Dodson EGFR-AF ANGOLAN >60 Normal >=60 [facility] Comment on above: Performed By: #### T SH, BMP #### [facility] [address] [place] [address] Dr. Tasha Dodson EGFR-NON AF ANGOLAN >60 Normal >=60 [facility] Comment on above: Performed By: #### T SH, BMP #### [facility] [address] [place] [address] Dr. Tasha Dodson Globulin (S) [Mass/Vol] 4.1 g/dL Normal [facility] Comment on above: Performed By: #### T SH, BMP #### [facility] [address] [place] [address] Dr. Tasha Dodson Glucose [Mass/Vol] 106 mg/dL Normal 74-106 [facility] Comment on above: Performed By: #### T SH, BMP #### [facility] [address] [place] [address] Dr. Tasha Dodson Potassium [Moles/Vol] 3.2 mmol/L Critically low 3.5-5.1 [facility] Comment on above: Performed By: #### T SH, BMP #### [facility] [address] [place] [address] Dr. Tasha Dodson Protein [Mass/Vol] 7.9 g/dL Normal 6.4-8.2 [facility] Comment on above: Performed By: #### T JESI, BMP #### [facility] [address] [place] [address] Dr. Tasha Dodson Sodium [Moles/Vol] 131 mmol/L Critically low 136-[address] [facility] Comment on above: Performed By: #### T JESI, BMP #### [facility] [address] [place] [address] Dr. Tasha Dodson Urea nitrogen [Mass/Vol] 10.0 mg/dL Normal 7.0-18.0 [facility] Comment on above: Performed By: #### T JESI, BMP #### [facility] [address] [place] [address] Dr. Tasha Dodson Urea nitrogen/Creatinine [Mass ratio] 14.9 mg/mg Normal [facility] Comment on above: Performed By: #### T JESI, BMP #### [facility] [address] [place] [address] Dr. Tasha Dodson CBC AUTO DIFFon 12-29-2021 BASO # 0.1 103/ul Normal 0.0-0.1 [facility] Comment on above: Performed By: #### C BC #### [facility] [address] [place] [address] Dr. Tasha Dodson Basophils/100 WBC (Bld) 0.5 % Normal 0.2-2.0 [facility] Comment on above: Performed By: #### C BC #### [facility] [address] [place] [address] Dr. Tasha Dodson EO # 0.1 103/ul Normal 0.0-0.7 [facility] Comment on above: Performed By: #### C BC #### [facility] [address] [place] [address] Dr. Tasha Dodson Eosinophils/100 WBC (Bld) 0.4 % Critically low 0.9-7.0 [facility] Comment on above: Performed By: #### C BC #### [facility] [address] [place] [address] Dr. Tasha Dodson Erythrocyte distribution width (RBC) [Ratio] 13.0 % Normal 11.0-15.0 [facility] Comment on above: Performed By: #### C BC #### [facility] [address] [place] [address] Dr. Tasha Dodson Hematocrit (Bld) [Volume fraction] 34.0 % Critically low 36.0-48.0 [facility] Comment on above: Performed By: #### C BC #### [facility] [address] [place] [address] Dr. Tasha Dodson Hemoglobin (Bld) [Mass/Vol] 12.0 g/dL Normal 12.0-16.0 [facility] Comment on above: Performed By: #### C BC #### [facility] [address] [place] [address] Dr. Tasha Dodson IG # 0.06 10e3/ul Critically high 0.00-0.03 [facility] Comment on above: Performed By: #### C BC #### [facility] [address] [place] [address] Dr. Tasha Dodson IG % 0.4 % Normal 0.0-0.5 [facility] Comment on above: Performed By: #### C BC #### [facility] [address] [place] [address] Dr. Tasha Dodson LYMPH # 2.5 103/ul Normal 1.2-3.8 [facility] Comment on above: Performed By: #### C BC #### [facility] [address] [place] [address] Dr. Tasha Dodson Lymphocytes/100 WBC (Bld) 17.4 % Critically low 20.5-60.0 [facility] Comment on above: Performed By: #### C BC #### [facility] [address] [place] [address] Dr. Tasha Dodson MANUAL DIFF REQ NO Normal [facility] Comment on above: Performed By: #### C BC #### [facility] [address] [place] [address] Dr. Tasha Dodson MCH (RBC) [Entitic mass] 31.0 pg Normal 26.7-34.0 [facility] Comment on above: Performed By: #### C BC #### [facility] [address] [address] [address] Tasha Dodson MCHC (RBC) [Mass/Vol] 35.3 g/dL Critically high 29.9-35.2 [facility] Comment on above: Performed By: #### C BC #### [facility] [address] [address] [address] Tasha Dodson MCV (RBC) [Entitic vol] 87.9 fL Normal 81.0-99.0 [facility] Comment on above: Performed By: #### C BC #### [facility] [address] [place] [address] Dr. Tasha Dodson MONO # 1.0 103/ul Critically high 0.3-0.8 [facility] Comment on above: Performed By: #### C BC #### [facility] [address] [place] [address] Dr. Tasha Dodson Monocytes/100 WBC (Bld) 6.9 % Normal 1.7-12.0 [facility] Comment on above: Performed By: #### C BC #### [facility] [address] [place] [address] Dr. Tasha Dodson NEUT # 10.8 103/ul Critically high 1.4-6.5 [facility] Comment on above: Performed By: #### C BC #### [facility] [address] [place] [address] Dr. Tasha Dodson Neutrophils/100 WBC (Bld) 74.4 % Normal 43.0-75.0 [facility] Comment on above: Performed By: #### C BC #### [facility] [address] [place] [address] Dr. Tasha Dodson Platelet mean volume (Bld) [Entitic vol] 8.4 fL Critically low 9.5-13.5 [facility] Comment on above: Performed By: #### C BC #### [facility] [address] [place] [address] Dr. Tasha Dodson PLT 370 103/ul Normal 150-450 [facility] Comment on above: Performed By: #### C BC #### [facility] [address] [place] [address] Dr. Tasha Dodson RBC 3.87 106/ul Critically low 4.20-5.40 [facility] [facility] Comment on above: Performed By: #### C BC #### [facility] [address] [place] [address] Dr. Tasha Dodson WBC 14.5 103/ul Critically high 4.0-11.0 [facility] Comment on above: Performed By: #### C BC #### [facility] [address] [place] [address] Dr. Tasha Dodson PROF 14(COMP METB)on 022 Albumin [Mass/Vol] 2.8 g/dL Critically low 3.4-5.0 [facility] Comment on above: Performed By: #### T SH, BMP #### [facility] [address] [place] [address] Dr. Tasha Dodson Albumin/Globulin [Mass ratio] 0.9 {ratio} Normal [facility] Comment on above: Performed By: #### T SH, BMP #### [facility] [address] [place] [address] Dr. Tasha Dodson ALP [Catalytic activity/Vol] 51 U/L Normal 46-116 [facility] Comment on above: Performed By: #### T SH, BMP #### [facility] [address] [place] [address] Dr. Tasha Dodson ALT [Catalytic activity/Vol] 15 U/L Normal 14-59 [facility] Comment on above: Performed By: #### T SH, BMP #### [facility] [address] [place] [address] Dr. Tasha Dodson Anion gap [Moles/Vol] 9.7 mmol/L Normal [facility] Comment on above: Performed By: #### T SH, BMP #### [facility] [address] [place] [address] Dr. Tasha Dodson AST [Catalytic activity/Vol] 15 U/L Normal 15-37 [facility] Comment on above: Performed By: #### T SH, BMP #### [facility] [address] [place] [address] Dr. Tasha Dodson Bilirubin [Mass/Vol] 0.4 mg/dL Normal 0.2-1.0 [facility] Comment on above: Performed By: #### T SH, BMP #### [facility] [address] [place] [address] Dr. Tasha Dodson Calcium [Mass/Vol] 8.6 mg/dL Normal 8.5-10.1 [facility] Comment on above: Performed By: #### T SH, BMP #### [facility] [address] [place] [address] Dr. Tasha Dodosn Chloride [Moles/Vol] 97 mmol/L Critically low 98-107 [facility] Comment on above: Performed By: #### T SH, BMP #### [facility] [address] [place] [address] Dr. Tasha Dodson CO2 [Moles/Vol] 25.8 mmol/L Normal 21.0-32.0 [facility] Comment on above: Performed By: #### T SH, BMP #### [facility] [address] [place] [address] Dr. Tasha Dodson Creatinine [Mass/Vol] 0.52 mg/dL Critically low 0.55-1.02 [facility] Comment on above: Performed By: #### T SH, BMP #### [facility] [address] [place] [address] Dr. Tasha Dodson EGFR-AF ANGOLAN >60 Normal >=60 [facility] Comment on above: Performed By: #### T SH, BMP #### [facility] [address] [place] [address] Dr. Tasha Dodson EGFR-NON AF ANGOLAN >60 Normal >=60 [facility] Comment on above: Performed By: #### T SH, BMP #### [facility] [address] [place] [address] Dr. Tasha Dodson Globulin (S) [Mass/Vol] 3.2 g/dL Normal [facility] Comment on above: Performed By: #### T SH, BMP #### [facility] [address] [place] [address] Dr. Tasha Dodson Glucose [Mass/Vol] 117 mg/dL Critically high 74-106 [facility] Comment on above: Performed By: #### T SH, BMP #### [facility] [address] [place] [address] Dr. Tasha Dodson Potassium [Moles/Vol] 3.5 mmol/L Normal 3.5-5.1 [facility] Comment on above: Performed By: #### T JESI, BMP #### [facility] [address] [place] [address] Dr. Tasha Dodson Protein [Mass/Vol] 6.0 g/dL Critically low 6.4-8.2 [facility] Comment on above: Performed By: #### T JESI, BMP #### [facility] [address] [place] [address] Dr. Tasha Dodson Sodium [Moles/Vol] 129 mmol/L Critically low 136-145 [facility] Comment on above: Performed By: #### T JESI, BMP #### [facility] [address] [place] [address] Dr. Tasha Dodson Urea nitrogen [Mass/Vol] 4.0 mg/dL Critically low 7.0-18.0 [facility] Comment on above: Performed By: #### T JESI, BMP #### [facility] [address] [place] [address] Dr. Tasha Dodson Urea nitrogen/Creatinine [Mass ratio] 7.7 mg/mg Normal [facility] Comment on above: Performed By: #### T SH, BMP #### [facility] [address] [place] [address] Dr. Tasha Dodson CBC AUTO DIFFon 12-28-2021 BASO # 0.1 103/ul Normal 0.0-0.1 [facility] Comment on above: Performed By: #### C BC #### [facility] [address] [address] [address] Tasha Dodson Basophils/100 WBC (Bld) 0.4 % Normal 0.2-2.0 [facility] Comment on above: Performed By: #### C BC #### [facility] [address] [place] [address] Dr. Tasha Dodson EO # 0.1 103/ul Normal 0.0-0.7 [facility] Comment on above: Performed By: #### C BC #### [facility] [address] [place] [address] Dr. Tasha Dodson Eosinophils/100 WBC (Bld) 0.4 % Critically low 0.9-7.0 [facility] Comment on above: Performed By: #### C BC #### [facility] [address] [place] [address] Dr. Tasha Dodson Erythrocyte distribution width (RBC) [Ratio] 12.9 % Normal 11.0-15.0 [facility] Comment on above: Performed By: #### C BC #### [facility] [address] [place] [address] Dr. Tasha Dodson Hematocrit (Bld) [Volume fraction] 34.2 % Critically low 36.0-48.0 [facility] Comment on above: Performed By: #### C BC #### [facility] [address] [place] [address] Dr. Tasha Dodson Hemoglobin (Bld) [Mass/Vol] 12.4 g/dL Normal 12.0-16.0 [facility] Comment on above: Performed By: #### C BC #### [facility] [address] [place] [address] Dr. Tasha Dodson IG # 0.09 10e3/ul Critically high 0.00-0.03 [facility] Comment on above: Performed By: #### C BC #### [facility] [address] [place] [address] Dr. Tasha Dodson IG % 0.6 % Critically high 0.0-0.5 [facility] Comment on above: Performed By: #### C BC #### [facility] [address] [address] [address] Tasha Dodson LYMPH # 2.2 103/ul Normal 1.2-3.8 [facility] Comment on above: Performed By: #### C BC #### [facility] [address] [place] [address] Dr. Tasha Dodson Lymphocytes/100 WBC (Bld) 13.6 % Critically low 20.5-60.0 [facility] Comment on above: Performed By: #### C BC #### [facility] [address] [place] [address] Dr. Tasha Dodson MANUAL DIFF REQ NO Normal [facility] Comment on above: Performed By: #### C BC #### [facility] [address] [place] [address] Dr. Tasha Dodson MCH (RBC) [Entitic mass] 31.2 pg Normal 26.7-34.0 [facility] Comment on above: Performed By: #### C BC #### [facility] [address] [place] [address] Dr. Tasha Dodson MCHC (RBC) [Mass/Vol] 36.3 g/dL Critically high 29.9-35.2 [facility] Comment on above: Performed By: #### C BC #### [facility] [address] [place] [address] Dr. Tasha Dodson MCV (RBC) [Entitic vol] 85.9 fL Normal 81.0-99.0 [facility] Comment on above: Performed By: #### C BC #### [facility] [address] [place] [address] Dr. Tasha Dodson MONO # 1.3 103/ul Critically high 0.3-0.8 [facility] Comment on above: Performed By: #### C BC #### [facility] [address] [place] [address] Dr. Tasha Dodson Monocytes/100 WBC (Bld) 7.8 % Normal 1.7-12.0 [facility] Comment on above: Performed By: #### C BC #### [facility] [address] [address] [address] Tasha Dodson NEUT # 12.4 103/ul Critically high 1.4-6.5 [facility] Comment on above: Performed By: #### C BC #### [facility] [address] [address] [address] Tasha Dodson Neutrophils/100 WBC (Bld) 77.2 % Critically high 43.0-75.0 [facility] Comment on above: Performed By: #### C BC #### [facility] [address] [address] [address] Tahsa Dodson Platelet mean volume (Bld) [Entitic vol] 8.6 fL Critically low 9.5-13.5 [facility] Comment on above: Performed By: #### C BC #### [facility] [address] [place] [address] Dr. Tasha Dodson PLT 385 103/ul Normal 150-450 [facility] Comment on above: Performed By: #### C BC #### [facility] [address] [place] [address] Dr. Tasha Dodson RBC 3.98 106/ul Critically low 4.20-5.40 [facility] Comment on above: Performed By: #### C BC #### [facility] [address] [place] [address] Dr. Tasha Dodson WBC 16.1 103/ul Critically high 4.0-11.0 [facility] Comment on above: Performed By: #### C BC #### [facility] [address] [place] [address] Dr. Tasha Dodson PROF 14(COMP METB)on 022 Albumin [Mass/Vol] 3.2 g/dL Critically low 3.4-5.0 [facility] Comment on above: Performed By: #### T JESI BMP #### [facility] [address] [place] [address] Dr. Tasha Dodson Albumin/Globulin [Mass ratio] 1.0 {ratio} Normal [facility] Comment on above: Performed By: #### T JESI, BMP #### [facility] [address] [place] [address] Dr. Tasha Dodson ALP [Catalytic activity/Vol] 51 U/L Normal 46-116 [facility] Comment on above: Performed By: #### T JESI, BMP #### [facility] [address] [place] [address] Dr. Tasha Dodson ALT [Catalytic activity/Vol] 17 U/L Normal 14-59 [facility] Comment on above: Performed By: #### T SH, BMP #### [facility] [address] [place] [address] Dr. Tasha Dodson Anion gap [Moles/Vol] 10.5 mmol/L Normal [facility] Comment on above: Performed By: #### T JESI, BMP #### [facility] [address] [place] [address] Dr. Tasha Dodson AST [Catalytic activity/Vol] 18 U/L Normal 15-37 [facility] Comment on above: Performed By: #### T JESI, BMP #### [facility] [address] [place] [address] Dr. Tasha Dodson Bilirubin [Mass/Vol] 0.4 mg/dL Normal 0.2-1.0 [facility] Comment on above: Performed By: #### T JESI, BMP #### [facility] [address] [place] [address] Dr. Tasha Dodson Calcium [Mass/Vol] 8.3 mg/dL Critically low 8.5-10.1 [facility] Comment on above: Performed By: #### T JESI, BMP #### [facility] [address] [place] [address] Dr. Tasha Dodson Chloride [Moles/Vol] 96 mmol/L Critically low 98-107 [facility] Comment on above: Performed By: #### T JESI, BMP #### [facility] [address] [place] [address] Dr. Tasha Dodson CO2 [Moles/Vol] 24.5 mmol/L Normal 21.0-32.0 [facility] Comment on above: Performed By: #### T JESI, BMP #### [facility] [address] [address] [address] Tasha Dodson Creatinine [Mass/Vol] 0.54 mg/dL Critically low 0.55-1.02 [facility] Comment on above: Performed By: #### T SH, BMP #### [facility] [address] [address] [address] Tasha Dodson EGFR-AF ANGOLAN >60 Normal >=60 [facility] Comment on above: Performed By: #### T SH, BMP #### [facility] [address] [address] [address] Tasha Dodson EGFR-NON AF ANGOLAN >60 Normal >=60 [facility] Comment on above: Performed By: #### T JESI, BMP #### [facility] [address] [place] [address] Dr. Tasha Dodson Globulin (S) [Mass/Vol] 3.1 g/dL Normal [facility] Comment on above: Performed By: #### T JESI, BMP #### [facility] [address] [place] [address] Dr. Tasha Dodson Glucose [Mass/Vol] 123 mg/dL Critically high 74-106 [facility] Comment on above: Performed By: #### T SH, BMP #### [facility] [address] [place] [address] Dr. Tasha Dodson Potassium [Moles/Vol] 3.0 mmol/L Critically low 3.5-5.1 [facility] Comment on above: Performed By: #### T SH, BMP #### [facility] [address] [place] [address] Dr. Tasha Dodson Protein [Mass/Vol] 6.3 g/dL Critically low 6.4-8.2 [facility] Comment on above: Performed By: #### T JESI, BMP #### [facility] [address] [place] [address] Dr. Tasha Dodson Sodium [Moles/Vol] 128 mmol/L Critically low 136-[address] [facility] Comment on above: Performed By: #### T JESI, BMP #### [facility] [address] [place] [address] Dr. Tasha Dodson Urea nitrogen [Mass/Vol] 5.0 mg/dL Critically low 7.0-18.0 [facility] Comment on above: Performed By: #### T JESI, BMP #### [facility] [address] [place] [address] Dr. Tasha Dodson Urea nitrogen/Creatinine [Mass ratio] 9.3 mg/mg Normal [facility] Comment on above: Performed By: #### T JESI, BMP #### [facility] [address] [place] [address] Dr. Tasha Dodson SODIUM RANDOM URINEon 2021 Sodium (U) [Moles/Vol] 135 mmol/L Critically high 30-90 [facility] Comment on above: Performed By: #### C BC #### [facility] [address] [place] [address] Dr. Tasha Dodson CBC AUTO DIFFon 12-27-2021 BASO # 0.0 103/ul Normal 0.0-0.1 [facility] Comment on above: Performed By: #### C BC #### [facility] [address] [place] [address] Dr. Tasha Dodson Basophils/100 WBC (Bld) 0.2 % Normal 0.2-2.0 [facility] Comment on above: Performed By: #### C BC #### [facility] [address] [place] [address] Dr. Tasha Dodson EO # 0.3 103/ul Normal 0.0-0.7 [facility] Comment on above: Performed By: #### C BC #### [facility] [address] [place] [address] Dr. Tasha Dodson Eosinophils/100 WBC (Bld) 2.3 % Normal 0.9-7.0 [facility] Comment on above: Performed By: #### C BC #### [facility] [address] [place] [address] Dr. Tasha Dodson Erythrocyte distribution width (RBC) [Ratio] 12.4 % Normal 11.0-15.0 [facility] Comment on above: Performed By: #### C BC #### [facility] [address] [place] [address] Dr. Tasha Dodson Hematocrit (Bld) [Volume fraction] 35.4 % Critically low 36.0-48.0 [facility] Comment on above: Performed By: #### C BC #### [facility] [address] [place] [address] Dr. Tasha Dodson Hemoglobin (Bld) [Mass/Vol] 12.9 g/dL Normal 12.0-16.0 [facility] Comment on above: Performed By: #### C BC #### [facility] [address] [place] [address] Dr. Tasha Dodson IG # 0.06 10e3/ul Critically high 0.00-0.03 [facility] Comment on above: Performed By: #### C BC #### [facility] [address] [place] [address] Dr. Tasha Dodson IG % 0.5 % Normal 0.0-0.5 [facility] Comment on above: Performed By: #### C BC #### [facility] [address] [place] [address] Dr. Tasha Dodson LYMPH # 2.0 103/ul Normal 1.2-3.8 [facility] Comment on above: Performed By: #### C BC #### [facility] [address] [place] [address] Dr. Tasha Dodson Lymphocytes/100 WBC (Bld) 15.7 % Critically low 20.5-60.0 [facility] Comment on above: Performed By: #### C BC #### [facility] [address] [place] [address] Dr. Tasha Dodson MANUAL DIFF REQ NO Normal [facility] Comment on above: Performed By: #### C BC #### [facility] [address] [place] [address] Dr. Tasha Dodson MCH (RBC) [Entitic mass] 31.0 pg Normal 26.7-34.0 [facility] Comment on above: Performed By: #### C BC #### [facility] [address] [address] [address] Tasha Dodson MCHC (RBC) [Mass/Vol] 36.4 g/dL Critically high 29.9-35.2 [facility] Comment on above: Performed By: #### C BC #### [facility] [address] [place] [address] Dr. Tasha Dodson MCV (RBC) [Entitic vol] 85.1 fL Normal 81.0-99.0 [facility] Comment on above: Performed By: #### C BC #### [facility] [address] [address] [address] Tasha Dodson MONO # 1.1 103/ul Critically high 0.3-0.8 [facility] Comment on above: Performed By: #### C BC #### [facility] [address] [place] [address] Dr. Tasha Dodson Monocytes/100 WBC (Bld) 8.3 % Normal 1.7-12.0 [facility] Comment on above: Performed By: #### C BC #### [facility] [address] [place] [address] Dr. Tasha Dodson NEUT # 9.5 103/ul Critically high 1.4-6.5 [facility] Comment on above: Performed By: #### C BC #### [facility] [address] [place] [address] Dr. Tasha Dodson Neutrophils/100 WBC (Bld) 73.0 % Normal 43.0-75.0 [facility] Comment on above: Performed By: #### C BC #### [facility] [address] [place] [address] Dr. Tasha Dodson Platelet mean volume (Bld) [Entitic vol] 8.3 fL Critically low 9.5-13.5 [facility] Comment on above: Performed By: #### C BC #### [facility] [address] [place] [address] Dr. Tasha Dodson PLT 408 103/ul Normal 150-450 [facility] Comment on above: Performed By: #### C BC #### [facility] [address] [address] [address] Tasha Dodson RBC 4.16 106/ul Critically low 4.20-5.40 [facility] Comment on above: Performed By: #### C BC #### [facility] [id number] Tasha Dodson WBC 13.0 103/ul Critically high 4.0-11.0 [facility] Comment on above: Performed By: #### C BC #### [facility] [address] [address] [address] Tasha Dodson CULTURE SPUTUMon 12-27-2021 CULTURE SPUTUM Culture Observations : NORMAL RESPIRATORY AMADOU. Normal [facility] Comment on above: Performed By: #### C BC #### [facility] [address] [address] [address] Tasha Dodson PROF 14(COMP METB)on 022 Albumin [Mass/Vol] 3.4 g/dL Normal 3.4-5.0 [facility] Comment on above: Performed By: #### C MADM, LIPA, BNP, CMP #### [facility] [address] [address] [address] Tasha Dodson Albumin/Globulin [Mass ratio] 1.0 {ratio} Normal [facility] Comment on above: Performed By: #### C MADM, LIPA, BNP, CMP #### [facility] [address] [address] [address] Tasha Dodson ALP [Catalytic activity/Vol] 54 U/L Normal 46-116 [facility] Comment on above: Performed By: #### C MADM, LIPA, BNP, CMP #### [facility] [address] [address] [address] Tasha Dodson ALT [Catalytic activity/Vol] 20 U/L Normal 14-59 [facility] Comment on above: Performed By: #### C MADM, LIPA, BNP, CMP #### [facility] [address] [address] [address] Tasha Dodson Anion gap [Moles/Vol] 10.8 mmol/L Normal [facility] Comment on above: Performed By: #### C MADM, LIPA, BNP, CMP #### [facility] [address] [address] [address] Tasha Dodson AST [Catalytic activity/Vol] 19 U/L Normal 15-37 [facility] Comment on above: Performed By: #### C MADM, LIPA, BNP, CMP #### [facility] [address] [place] [address] Dr. Tasha Dodson Bilirubin [Mass/Vol] 0.5 mg/dL Normal 0.2-1.0 [facility] Comment on above: Performed By: #### C MADM, LIPA, BNP, CMP #### [facility] [address] [place] [address] Dr. Tasha Dodson Calcium [Mass/Vol] 8.3 mg/dL Critically low 8.5-10.1 [facility] Comment on above: Performed By: #### C MADM, LIPA, BNP, CMP #### [facility] [address] [place] [address] Dr. Tasha Dodson Chloride [Moles/Vol] 89 mmol/L Critically low 98-107 [facility] Comment on above: Performed By: #### C MADM, LIPA, BNP, CMP #### [facility] [address] [place] [address] Dr. Tasha Dodson CO2 [Moles/Vol] 27.0 mmol/L Normal 21.0-32.0 [facility] Comment on above: Performed By: #### C MADM, LIPA, BNP, CMP #### [facility] [address] [place] [address] Dr. Tasha Dodson Creatinine [Mass/Vol] 0.69 mg/dL Normal 0.55-1.02 [facility] Comment on above: Performed By: #### C MADM, LIPA, BNP, CMP #### [facility] [address] [place] [address] Dr. Tasha Dodson EGFR-AF ANGOLAN >60 Normal >=60 [facility] Comment on above: Performed By: #### C MADM, LIPA, BNP, CMP #### [facility] [address] [place] [address] Dr. Tasha Dodson EGFR-NON AF ANGOLAN >60 Normal >=60 [facility] Comment on above: Performed By: #### C MADM, LIPA, BNP, CMP #### [facility] [address] [place] [address] Dr. Tasha Dodson Globulin (S) [Mass/Vol] 3.3 g/dL Normal [facility] Comment on above: Performed By: #### C MADM, LIPA, BNP, CMP #### [facility] [address] [place] [address] Dr. Tasha Dodson Glucose [Mass/Vol] 115 mg/dL Critically high 74-106 [facility] Comment on above: Performed By: #### C MADM, LIPA, BNP, CMP #### [facility] [address] [place] [address] Dr. Tasha Dodson Potassium [Moles/Vol] 2.7 mmol/L Critically low 3.5-5.1 [facility] Comment on above: Result Comment: Test Repeated. Critical Value Verified Performed By: #### C MADM, LIPA, BNP, CMP #### [facility] [address] [place] [address] Dr. Tasha Dodson Protein [Mass/Vol] 6.7 g/dL Normal 6.4-8.2 [facility] Comment on above: Performed By: #### C MADM, LIPA, BNP, CMP #### [facility] [address] [place] [address] Dr. Tasha Dodson Sodium [Moles/Vol] 123 mmol/L Critically low 136-145 [facility] Comment on above: Result Comment: Test Repeated. Critical Value Verified Performed By: #### C MADM, LIPA, BNP, CMP #### [facility] [address] [place] [address] Dr. Tasha Dodson Urea nitrogen [Mass/Vol] 6.0 mg/dL Critically low 7.0-18.0 [facility] Comment on above: Performed By: #### C MADM, LIPA, BNP, CMP #### [facility] [address] [address] [address] Tasha Dodson Urea nitrogen/Creatinine [Mass ratio] 8.7 mg/mg Normal [facility] Comment on above: Performed By: #### C MADM, LIPA, BNP, CMP #### [facility] [address] [address] [address] Tasha Dodson SPUTUM GRAM STAINon 12-28-[address] [facility] Comment on above: Performed By: #### T SH, BMP #### [facility] [address] [address] [address] Tasha Dodson DIPHTHEROIDS Normal [facility] Comment on above: Performed By: #### T SH, BMP #### [facility] [address] [address] [address] Tasha Dodson EPITHELIALS <[address] [facility] Comment on above: Performed By: #### T SH, BMP #### [facility] [address] [address] [address] Tasha Dodson FUNGAL ELEMENTS Normal [facility] Comment on above: Performed By: #### T SH, BMP #### [facility] [address] [address] [address] Tasha FAUST NEG BACILLI Normal [facility] Comment on above: Performed By: #### T SH, BMP #### [facility] [address] [address] [address] Tasha FAUST NEG DIPPLOCOCCI Normal [facility] Comment on above: Performed By: #### T SH, BMP #### [facility] [address] [address] [address] Tasha Dodson GRAM POS BACILLI Normal [facility] Comment on above: Performed By: #### T SH, BMP #### [facility] [address] [address] [address] Tasha Dodson GRAM POSITIVE COCCI MODERATE Normal [facility] Comment on above: Performed By: #### T SH, BMP #### [facility] [address] [address] [address] Tasha Dodson WBC (Bld) [#/Vol] 10*3/uL Normal [facility] Comment on above: Performed By: #### T SH, BMP #### [facility] [address] [address] [address] Tasha Dodson BNPon 12-26-2021 Natriuretic peptide B (Bld) [Mass/Vol] 148.0 pg/mL Normal <=1,800.0 [facility] Comment on above: Performed By: #### C MADM, LIPA, BNP, CMP #### [facility] [address] [address] [address] Tasha Dodson CARDIAC ANGELO ADMITon 022 CK [Catalytic activity/Vol] 139 U/L Normal 26-192 [facility] Comment on above: Performed By: #### C MADM, LIPA, BNP, CMP #### [facility] [address] [place] [address] Dr. Tasha Dodson CK.MB [Mass/Vol] 2.43 ng/mL Normal <=3.60 [facility] Comment on above: Performed By: #### C MADM, LIPA, BNP, CMP #### [facility] [address] [place] [address] Dr. Tasha Dodson HSTROP 12.2 pg/mL Normal 4.0-51.3 [facility] Comment on above: Result Comment: CUT- OFF POINTS HAVE BEEN ESTABLISHED BASED ON THE FOURTH UNIVERSAL DEFINITIONS OF MYOCARDIAL INFARCTION. THE UPPER REFERENCE LIMIT (URL) OF TROPONIN, DEFINED THE 99TH PERCENTILE OF cTnI DISTRIBUTION IN A REFERENCE POPULATION, HAS BEEN CONFIRMED THE DECISION THRESHOLD FOR [place] DIAGNOSIS. Performed By: #### C MADM, LIPA, BNP, CMP #### [facility] [address] [place] [address] Dr. Tasha Dodson ELIZABETH 110 ng/mL Critically high 9-82 [facility] Comment on above: Performed By: #### C MADM, LIPA, BNP, CMP #### [facility] [address] [place] [address] Dr. Tasha Dodson CBC AUTO DIFFon 12-26-2021 BASO # 0.0 103/ul Normal 0.0-0.1 [facility] Comment on above: Performed By: #### C MADM, LIPA, BNP, CMP #### [facility] [address] [place] [address] Dr. Tasha Dodson Basophils/100 WBC (Bld) 0.3 % Normal 0.2-2.0 [facility] Comment on above: Performed By: #### C MADM, LIPA, BNP, CMP #### [facility] [address] [place] [address] Dr. Tasha Dodson EO # 0.1 103/ul Normal 0.0-0.7 [facility] Comment on above: Performed By: #### C MADM, LIPA, BNP, CMP #### [facility] [address] [place] [address] Dr. Tasha Dodson Eosinophils/100 WBC (Bld) 0.7 % Critically low 0.9-7.0 [facility] Comment on above: Performed By: #### C MADM, LIPA, BNP, CMP #### [facility] [address] [place] [address] Dr. Tasha Dodson Erythrocyte distribution width (RBC) [Ratio] 12.4 % Normal 11.0-15.0 [facility] Comment on above: Performed By: #### C MADM, LIPA, BNP, CMP #### [facility] [address] [place] [address] Dr. Tasha Dodson Hematocrit (Bld) [Volume fraction] 38.9 % Normal 36.0-48.0 [facility] Comment on above: Performed By: #### C MADM, LIPA, BNP, CMP #### [facility] [address] [place] [address] Dr. Tasha Dodson Hemoglobin (Bld) [Mass/Vol] 14.4 g/dL Normal 12.0-16.0 [facility] Comment on above: Performed By: #### C MADM, LIPA, BNP, CMP #### [facility] [address] [place] [address] Dr. Tasha Dodson IG # 0.08 10e3/ul Critically high 0.00-0.03 [facility] Comment on above: Performed By: #### C MADM, LIPA, BNP, CMP #### [facility] [address] [place] [address] Dr. Tasha Dodson IG % 0.5 % Normal 0.0-0.5 [facility] Comment on above: Performed By: #### C MADM, LIPA, BNP, CMP #### [facility] [address] [place] [address] Dr. Tasha Dodson LYMPH # 2.2 103/ul Normal 1.2-3.8 [facility] Comment on above: Performed By: #### C MADM, LIPA, BNP, CMP #### [facility] [address] [place] [address] Dr. Tasha Dodson Lymphocytes/100 WBC (Bld) 15.0 % Critically low 20.5-60.0 [facility] Comment on above: Performed By: #### C MADM, LIPA, BNP, CMP #### [facility] [address] [place] [address] Dr. Tasha Dodson MANUAL DIFF REQ NO Normal [facility] Comment on above: Performed By: #### C MADM, LIPA, BNP, CMP #### [facility] [address] [place] [address] Dr. Tasha Ddoson MCH (RBC) [Entitic mass] 31.6 pg Normal 26.7-34.0 [facility] Comment on above: Performed By: #### C MADM, LIPA, BNP, CMP #### [facility] [address] [place] [address] Dr. Tasha Dodson MCHC (RBC) [Mass/Vol] 37.0 g/dL Critically high 29.9-35.2 [facility] Comment on above: Performed By: #### C MADM, LIPA, BNP, CMP #### [facility] [address] [place] [address] Dr. Tasha Dodson MCV (RBC) [Entitic vol] 85.3 fL Normal 81.0-99.0 [facility] Comment on above: Performed By: #### C MADM, LIPA, BNP, CMP #### [facility] [address] [address] [address] Tasha Dodson MONO # 1.0 103/ul Critically high 0.3-0.8 [facility] Comment on above: Performed By: #### C MADM, LIPA, BNP, CMP #### [facility] [address] [address] [address] Tasha Dodson Monocytes/100 WBC (Bld) 6.8 % Normal 1.7-12.0 [facility] Comment on above: Performed By: #### C MADM, LIPA, BNP, CMP #### [facility] [address] [place] [address] Dr. Tasha Dodson NEUT # 11.5 103/ul Critically high 1.4-6.5 [facility] Comment on above: Performed By: #### C MADM, LIPA, BNP, CMP #### [facility] [address] [place] [address] Dr. Tasha Dodson Neutrophils/100 WBC (Bld) 76.7 % Critically high 43.0-75.0 [facility] Comment on above: Performed By: #### C MADM, LIPA, BNP, CMP #### [facility] [address] [place] [address] Dr. Tasha Dodson Platelet mean volume (Bld) [Entitic vol] 8.6 fL Critically low 9.5-13.5 [facility] Comment on above: Performed By: #### C MADM, LIPA, BNP, CMP #### [facility] [address] [place] [address] Dr. Tasha Dodson PLT 491 103/ul Critically high 150-450 [facility] Comment on above: Performed By: #### C MADM, LIPA, BNP, CMP #### [facility] [address] [place] [address] Dr. Tasha Dodson RBC 4.56 106/ul Normal 4.20-5.40 [facility] Comment on above: Performed By: #### C MADM, LIPA, BNP, CMP #### [facility] [address] [place] [address] Dr. Tasha Dodson WBC 15.0 103/ul Critically high 4.0-11.0 [facility] Comment on above: Performed By: #### C MADM, LIPA, BNP, CMP #### [facility] [address] [place] [address] Dr. Tasha Dodson CULTURE URINEon 12-26-2021 CULTURE URINE Culture Observations : LIGHT GROWTH OF MIXED GENITAL AMADOU. NO POTENTIAL PATHOGENS SEEN. Normal [facility] Comment on above: Performed By: #### C BC #### [facility] [address] [place] [address] Dr. Tasha Dodson Covid-19 PCR ([facility])on SARS-CoV-2 (COVID-19) RNA CARITO+probe Ql (Unsp spec) Not detected Normal NOT DETECTED [facility] Comment on above: Result Comment: [...] for this test is supported by the [place] of Health and Human Service's declaration that [...] MADM, LIPA, BNP, CMP #### [facility] [address] [place] [address] Dr. Tasha Dodson ER URINE PROFILEon 2 Bilirubin Ql (U) Negative Normal NEGATIVE [facility] Comment on above: Performed By: #### T SH, BMP #### [facility] [address] [place] [address] Dr. Tasha Dodson Clarity (U) CLEAR Normal CLEAR [facility] Comment on above: Performed By: #### T SH, BMP #### [facility] [address] [place] [address] Dr. Tasha Dodson Color (U) LT. YELLOW Normal YELLOW [facility] Comment on above: Performed By: #### T SH, BMP #### [facility] [address] [place] [address] Dr. Tasha FERNANDES A micrscopic examination will be performed if indicated. Normal [facility] Comment on above: Performed By: #### T SH, BMP #### [facility] [address] [place] [address] Dr. Tasha Dodson Glucose Ql (U) Negative Normal NEGATIVE [facility] Comment on above: Performed By: #### T SH, BMP #### [facility] [address] [place] [address] Dr. Tasha Dodson Hemoglobin Ql (U) TRACE-INTACT Abnormal NEGATIVE [facility] Comment on above: Performed By: #### T SH, BMP #### [facility] [address] [place] [address] Dr. Tasha Dodson Ketones Ql (U) TRACE Abnormal NEGATIVE [facility] Comment on above: Performed By: #### T SH, BMP #### [facility] [address] [place] [address] Dr. Tasha Dodson LEUKOCYTES Negative Normal NEGATIVE [facility] Comment on above: Performed By: #### T SH, BMP #### [facility] [address] [place] [address] Dr. Tasha Dodson Nitrite Ql (U) Negative Normal NEGATIVE [facility] Comment on above: Performed By: #### T SH, BMP #### [facility] [address] [place] [address] Dr. Tasha Dodson pH (U) 7.0 [pH] Normal 5-9 [facility] Comment on above: Performed By: #### T SH, BMP #### [facility] [address] [place] [address] Dr. Tasha Dodson SPEC GRAVITY 1.010 Normal 1.005-<=1.[address] [facility] Comment on above: Performed By: #### T JESI, BMP #### [facility] [address] [place] [address] Dr. Tasha Dodson UA PROTEIN Negative Normal NEGATIVE/ TRACE [facility] Comment on above: Performed By: #### T JESI, BMP #### [facility] [address] [place] [address] Dr. Tasha Dodson UR MICRO IND INDICATED Normal [facility] Comment on above: Performed By: #### T JESI, BMP #### [facility] [address] [place] [address] Dr. Tasha Dodson Urobilinogen Qn (U) 0.2 {Juan'U}/dL Normal 0.2 - 1. 0 [facility] Comment on above: Performed By: #### T JESI, BMP #### [facility] [address] [place] [address] Dr. Tasha Dodson INFLUENZA A AND B AGon 12-26 INFLUANEGH SEE BELOW Normal [facility] Comment on above: Result Comment: Nega tive for Flu A protein angiten. Infection due to Flu A cannot be ruled out. Flu A angiten in the sample may be below the detection limit of the test. Performed By: #### C BC #### [facility] [address] [place] [address] Dr. Tasha Dodson INFLUBNEGH SEE BELOW Normal [facility] Comment on above: Result Comment: Nega tive for Flu B protein antigen. Infection due to Flu B cannot be ruled out. Flu B antigen in the sample may be below the detection limit of the test. Performed By: #### C BC #### [facility] [address] [place] [address] Dr. Tasha Dodson INFLUENZA A AG Negative Normal NEGATIVE SEE COMMENT [facility] Comment on above: Performed By: #### C BC #### [facility] [address] [place] [address] Dr. Tasha Dodson INFLUENZA B AG Negative Normal NEGATIVE SEE COMMENT [facility] Comment on above: Performed By: #### C BC #### [facility] [address] [address] [address] Tasha Dodson INTERNAL CONTROLS Within Normal Limits Normal Wi thin Normal Limits [facility] Comment on above: Performed By: #### C BC #### [facility] [address] [address] [address] Tasha Dodson LACTATE/LACTIC ACIDon 2021 Lactate [Moles/Vol] 1.5 mmol/L Normal 0.4-1.9 [facility] Comment on above: Performed By: #### T SH, BMP #### [facility] [address] [address] [address] Tasha Dodson LIPASEon 12-26-2021 Lipase [Catalytic activity/Vol] 96.0 U/L Normal 73.0-393.0 [facility] Comment on above: Performed By: #### C MADM, LIPA, BNP, CMP #### [facility] [address] [place] [address] Dr. Tasha Dodson PROF 14(COMP METB)on 022 Albumin [Mass/Vol] 4.2 g/dL Normal 3.4-5.0 [facility] Comment on above: Performed By: #### C MADM, LIPA, BNP, CMP #### [facility] [address] [place] [address] Dr. Tasha Dodsno Albumin/Globulin [Mass ratio] 1.1 {ratio} Normal [facility] Comment on above: Performed By: #### C MADM, LIPA, BNP, CMP #### [facility] [address] [place] [address] Dr. Tasha Dodson ALP [Catalytic activity/Vol] 68 U/L Normal 46-116 [facility] Comment on above: Performed By: #### C MADM, LIPA, BNP, CMP #### [facility] [address] [place] [address] Dr. Tasha Dodson ALT [Catalytic activity/Vol] 23 U/L Normal 14-59 [facility] Comment on above: Performed By: #### C MADM, LIPA, BNP, CMP #### [facility] [address] [address] [address] Tasha Dodson Anion gap [Moles/Vol] 12.3 mmol/L Normal Th [facility] Comment on above: Performed By: #### C MADM, LIPA, BNP, CMP #### [facility] [address] [place] [address] Dr. Tasha Dodson AST [Catalytic activity/Vol] 25 U/L Normal 15-37 [facility] Comment on above: Performed By: #### C MADM, LIPA, BNP, CMP #### [facility] [address] [place] [address] Dr. Tasha Dodson Bilirubin [Mass/Vol] 0.7 mg/dL Normal 0.2-1.0 [facility] Comment on above: Performed By: #### C MADM, LIPA, BNP, CMP #### [facility] [address] [place] [address] Dr. Tasha Ddoson Calcium [Mass/Vol] 9.5 mg/dL Normal 8.5-10.1 [facility] Comment on above: Performed By: #### C MADM, LIPA, BNP, CMP #### [facility] [address] [place] [address] Dr. Tasha Dodson Chloride [Moles/Vol] 80 mmol/L Critically low 98-107 [facility] Comment on above: Performed By: #### C MADM, LIPA, BNP, CMP #### [facility] [address] [place] [address] Dr. Tasha Dodson CO2 [Moles/Vol] 27.1 mmol/L Normal 21.0-32.0 [facility] Comment on above: Performed By: #### C MADM, LIPA, BNP, CMP #### [facility] [address] [place] [address] Dr. Tasha Dodson Creatinine [Mass/Vol] 0.85 mg/dL Normal 0.55-1.02 [facility] Comment on above: Performed By: #### C MADM, LIPA, BNP, CMP #### [facility] [address] [address] [address] Tasha Dodson EGFR-AF ANGOLAN >60 Normal >=60 [facility] Comment on above: Performed By: #### C MADM, LIPA, BNP, CMP #### [facility] [address] [address] [address] Tasha Dodson EGFR-NON AF ANGOLAN >60 Normal >=60 [facility] Comment on above: Performed By: #### C MADM, LIPA, BNP, CMP #### [facility] [address] [place] [address] Dr. Tasha Dodson Globulin (S) [Mass/Vol] 3.9 g/dL Normal [facility] Comment on above: Performed By: #### C MADM, LIPA, BNP, CMP #### [facility] [address] [place] [address] Dr. Tasha Dodson Glucose [Mass/Vol] 132 mg/dL Critically high 74-106 [facility] Comment on above: Performed By: #### C MADM, LIPA, BNP, CMP #### [facility] [address] [address] [address] Tasha Dodson Potassium [Moles/Vol] 2.4 mmol/L Critically low 3.5-5.1 [facility] Comment on above: Performed By: #### C MADM, LIPA, BNP, CMP #### [facility] [address] [place] [address] Dr. Tasha Dodson Protein [Mass/Vol] 8.1 g/dL Normal 6.4-8.2 [facility] Comment on above: Performed By: #### C MADM, LIPA, BNP, CMP #### [facility] [address] [address] [address] Tasha Dodson Sodium [Moles/Vol] 116 mmol/L Critically low 136-145 [facility] Comment on above: Performed By: #### C MADM, LIPA, BNP, CMP #### [facility] [address] [address] [address] Tasha Dodson Urea nitrogen [Mass/Vol] 12.0 mg/dL Normal 7.0-18.0 [facility] Comment on above: Performed By: #### C MADM, LIPA, BNP, CMP #### [facility] [address] [place] [address] Dr. Tasha Dodson Urea nitrogen/Creatinine [Mass ratio] 14.1 mg/mg Normal [facility] Comment on above: Performed By: #### C MADM, LIPA, BNP, CMP #### [facility] [address] [place] [address] Dr. Tasha Dodson PROF CHEM 8 (BAS METB)on Anion gap [Moles/Vol] 11.4 mmol/L Normal [facility] Comment on above: Performed By: #### T SH, BMP #### [facility] [address] [place] [address] Dr. Tasha Dodson Calcium [Mass/Vol] 8.4 mg/dL Critically low 8.5-10.1 [facility] Comment on above: Performed By: #### T JESI, BMP #### [facility] [address] [place] [address] Dr. Tasha Dodson Chloride [Moles/Vol] 89 mmol/L Critically low 98-[facility] [facility] Comment on above: Performed By: #### T JESI, BMP #### [facility] [address] [place] [address] Dr. Tasha Dodson CO2 [Moles/Vol] 25.5 mmol/L Normal 21.0-32.0 [facility] Comment on above: Performed By: #### T JESI, BMP #### [facility] [address] [place] [address] Dr. Tasha Dodson Creatinine [Mass/Vol] 0.89 mg/dL Normal 0.55-1.02 [facility] Comment on above: Performed By: #### T SH, BMP #### [facility] [address] [place] [address] Dr. Tasha Dodson EGFR-AF ANGOLAN >60 Normal >=60 [facility] Comment on above: Performed By: #### T SH, BMP #### [facility] [address] [address] [address] Tasha Dodson EGFR-NON AF ANGOLAN 60 mL/min/1.73m2 Normal >=60 [facility] Comment on above: Performed By: #### T SH, BMP #### [facility] [address] [place] [address] Dr. Tasha Dodson Glucose [Mass/Vol] 166 mg/dL Critically high 74-106 T [facility] Comment on above: Performed By: #### T SH, BMP #### [facility] [address] [place] [address] Dr. Tasha Dodson Potassium [Moles/Vol] 3.0 mmol/L Critically low 3.5-5.1 [facility] Comment on above: Performed By: #### T JESI, BMP #### [facility] [address] [place] [address] Dr. Tasha Dodson Sodium [Moles/Vol] 123 mmol/L Critically low 136-[address] [facility] Comment on above: Performed By: #### T JESI, BMP #### [facility] [address] [place] [address] Dr. Tasha Dodson Urea nitrogen [Mass/Vol] 9.0 mg/dL Normal 7.0-18.0 [facility] Comment on above: Performed By: #### T JESI, BMP #### [facility] [address] [place] [address] Dr. Tasha Dodson Urea nitrogen/Creatinine [Mass ratio] 10.1 mg/mg Normal [facility] Comment on above: Performed By: #### T JESI, BMP #### [facility] [address] [place] [address] Dr. Tasha Dodson PROTIMEon 12-26-2021 INR Coag (PPP) [Relative time] 0.96 {INR} Normal [facility] Comment on above: Performed By: #### T JESI, BMP #### [facility] [address] [place] [address] Dr. Tasha Dodson INR GUIDELINES SEE BELOW Normal [facility] Comment on above: Result Comment: JO RED INR: 2.0 - 3.0 CONDITIONS NOT LISTED BELOW 2.5 - 3.5 FOR PROSTHETIC HEART VALVE REPLACEMENT 2.5 - 3.5 RECURRENT THROMBOSIS Performed By: #### T JESI, BMP #### [facility] [address] [place] [address] Dr. Tasha Dodson PT Coag (PPP) [Time] 10.4 s Normal 9.0-11.6 [facility] Comment on above: Performed By: #### T JESI, BMP #### [facility] [address] [place] [address] Dr. Tasha Dodson PTTon 12-26-2021 aPTT Coag (Bld) [Time] 26.2 s Normal 22.3-36.2 [facility] Comment on above: Performed By: #### T JESI, BMP #### [facility] [address] [place] [address] Dr. Tasha Dodson SODIUM RANDOM URINEon 2021 Sodium (U) [Moles/Vol] 71 mmol/L Normal 30-90 [facility] Comment on above: Performed By: #### T JESI, BMP #### [facility] [address] [place] [address] Dr. Tasha Dodson T4on 12-26-2021 T4 [Mass/Vol] 10.60 ug/dL Normal 4.80-13.90 [facility] Comment on above: Performed By: #### C BC #### [facility] [address] [place] [address] Dr. Tasha Dodson TSHon 12-26-2021 TSH 5.236 uIU/mL Critically high 0.358-3.740 [facility] Comment on above: Performed By: #### C BC #### [facility] [address] [place] [address] Dr. Tasha Dodson URINE MICROSCOPIC ONLYon BACTERIA TRACE Abnormal NONE SEEN [facility] Comment on above: Performed By: #### T SH, BMP #### [facility] [address] [place] [address] Dr. Tasha Dodson Bacteria identified Cx Nom (U) NOT INDICATED Normal [facility] Comment on above: Performed By: #### T SH, BMP #### [facility] [address] [place] [address] Dr. Tasha Dodson CAST NONE SEEN Normal NONE SEEN [facility] Comment on above: Performed By: #### T SH, BMP #### [facility] [address] [place] [address] Dr. Tasha Dodson Crystals LM Nom (Urine sed) NONE SEEN Normal NONE SEEN [facility] Comment on above: Performed By: #### T SH, BMP #### [facility] [address] [place] [address] Dr. Tasha Dodson Epithelial cells LM Ql (Urine sed) NONE SEEN Normal NONE SEEN /RARE [facility] Comment on above: Performed By: #### T SH, BMP #### [facility] [address] [place] [address] Dr. Tasha Dodson MUCOUS NONE SEEN Normal NONE SEEN [facility] Comment on above: Performed By: #### T SH, BMP #### [facility] [address] [place] [address] Dr. Tasha Dodson RBC 0-2 Normal 0-2 [facility] Comment on above: Performed By: #### T SH, BMP #### [facility] [address] [place] [address] Dr. aTsha Dodson WBC 0-[address] [facility] Comment on above: Performed By: #### T SH, BMP #### [facility] [address] [place] [address] Dr. Tasha Dodson XR CHEST 1 Von [...] Date: 2021-12-26 11:32 Normal [facility] XR LSPINE MIN 4 VIEWSon 10- XR LSPINE MIN 4 VIEWS EXAMINATION: XR [...] Date: 2021-11-30 22:52 Normal [facility] CBC AUTO DIFFon 11-09-2021 BASO # 0.1 103/ul Normal 0.0-0.1 [facility] Comment on above: Performed By: #### C MADM, LIPA, BNP, CMP #### [facility] [address] [address] [address] Tasha Dodson Basophils/100 WBC (Bld) 0.7 % Normal 0.2-2.0 [facility] Comment on above: Performed By: #### C MADM, LIPA, BNP, CMP #### [facility] [address] [address] [address] Tasha Dodson EO # 0.2 103/ul Normal 0.0-0.7 [facility] Comment on above: Performed By: #### C MADM, LIPA, BNP, CMP #### [facility] [address] [address] [address] Tasha Dodson Eosinophils/100 WBC (Bld) 1.8 % Normal 0.9-7.0 [facility] Comment on above: Performed By: #### C MADM, LIPA, BNP, CMP #### [facility] [address] [address] [address] Tasha Dodson Erythrocyte distribution width (RBC) [Ratio] 13.0 % Normal 11.0-15.0 [facility] Comment on above: Performed By: #### C MADM, LIPA, BNP, CMP #### [facility] [address] [place] [address] Dr. Tasha Dodson Hematocrit (Bld) [Volume fraction] 33.8 % Critically low 36.0-48.0 [facility] Comment on above: Performed By: #### C MADM, LIPA, BNP, CMP #### [facility] [address] [place] [address] Dr. Tasha Dodson Hemoglobin (Bld) [Mass/Vol] 12.5 g/dL Normal 12.0-16.0 [facility] Comment on above: Performed By: #### C MADM, LIPA, BNP, CMP #### [facility] [address] [place] [address] Dr. Tasha Dodson IG # 0.02 10e3/ul Normal 0.00-0.03 [facility] Comment on above: Performed By: #### C MADM, LIPA, BNP, CMP #### [facility] [address] [place] [address] Dr. Tasha Dodson IG % 0.2 % Normal 0.0-0.5 [facility] Comment on above: Performed By: #### C MADM, LIPA, BNP, CMP #### [facility] [address] [place] [address] Dr. Tasha Dodson LYMPH # 2.9 103/ul Normal 1.2-3.8 [facility] Comment on above: Performed By: #### C MADM, LIPA, BNP, CMP #### [facility] [address] [place] [address] Dr. Tasha Dodson Lymphocytes/100 WBC (Bld) 29.4 % Normal 20.5-60.0 [facility] Comment on above: Performed By: #### C MADM, LIPA, BNP, CMP #### [facility] [address] [place] [address] Dr. Tasha Dodson MANUAL DIFF REQ NO Normal [facility] Comment on above: Performed By: #### C MADM, LIPA, BNP, CMP #### [facility] [address] [place] [address] Dr. Tasha Dodson MCH (RBC) [Entitic mass] 34.1 pg Critically high 26.7-34.0 [facility] Comment on above: Performed By: #### C MADM, LIPA, BNP, CMP #### [facility] [address] [place] [address] Dr. Tasha Dodson MCHC (RBC) [Mass/Vol] 37.0 g/dL Critically high 29.9-35.2 [facility] Comment on above: Performed By: #### C MADM, LIPA, BNP, CMP #### [facility] [address] [place] [address] Dr. Tasha Dodson MCV (RBC) [Entitic vol] 92.1 fL Normal 81.0-99.0 [facility] Comment on above: Performed By: #### C MADM, LIPA, BNP, CMP #### [facility] [address] [place] [address] Dr. Tasha Dodson MONO # 0.8 103/ul Normal 0.3-0.8 [facility] Comment on above: Performed By: #### C MADM, LIPA, BNP, CMP #### [facility] [address] [place] [address] Dr. Tasha Dodson Monocytes/100 WBC (Bld) 8.2 % Normal 1.7-12.0 [facility] Comment on above: Performed By: #### C MADM, LIPA, BNP, CMP #### [facility] [address] [place] [address] Dr. Tasha Dodson NEUT # 5.9 103/ul Normal 1.4-6.5 [facility] Comment on above: Performed By: #### C MADM, LIPA, BNP, CMP #### [facility] [address] [place] [address] Dr. Tasha Dodson Neutrophils/100 WBC (Bld) 59.7 % Normal 43.0-75.0 [facility] Comment on above: Performed By: #### C MADM, LIPA, BNP, CMP #### [facility] [address] [place] [address] Dr. Tasha Dodson Platelet mean volume (Bld) [Entitic vol] 8.9 fL Critically low 9.5-13.5 [facility] Comment on above: Performed By: #### C MADM, LIPA, BNP, CMP #### [facility] [address] [place] [address] Dr. Tasha Dodson PLT 370 103/ul Normal 150-450 [facility] Comment on above: Performed By: #### C MADM, LIPA, BNP, CMP #### [facility] [address] [place] [address] Dr. Tasha Dodson RBC 3.67 106/ul Critically low 4.20-5.40 [facility] Comment on above: Performed By: #### C MADM, LIPA, BNP, CMP #### [facility] [address] [place] [address] Dr. Tasha Dodson WBC 9.9 103/ul Normal 4.0-11.0 [facility] Comment on above: Performed By: #### C MADM, LIPA, BNP, CMP #### [facility] [address] [place] [address] Dr. Tasha Dodson FREE T4on 11-09-2021 Free T4 [Mass/Vol] 1.48 ng/dL Critically high 0.76-1.46 [facility] Comment on above: Performed By: #### F T4 #### [facility] [address] [place] [address] Dr. Tasha Dodson PROF CHEM 8 (BAS METB)on Anion gap [Moles/Vol] 11.1 mmol/L Normal [facility] Comment on above: Performed By: #### T SH, BMP #### [facility] [address] [place] [address] Dr. Tasha Dodson Calcium [Mass/Vol] 9.3 mg/dL Normal 8.5-10.1 [facility] Comment on above: Performed By: #### T SH, BMP #### [facility] [address] [address] [address] Tasha Dodson Chloride [Moles/Vol] 92 mmol/L Critically low 98-107 [facility] Comment on above: Performed By: #### T SH, BMP #### [facility] [address] [place] [address] Dr. Tasha Dodson CO2 [Moles/Vol] 29.2 mmol/L Normal 21.0-32.0 [facility] Comment on above: Performed By: #### T SH, BMP #### [facility] [address] [place] [address] Dr. Tasha Dodson Creatinine [Mass/Vol] 0.68 mg/dL Normal 0.55-1.02 [facility] Comment on above: Performed By: #### T SH, BMP #### [facility] [address] [place] [address] Dr. Tasha Dodson EGFR-AF ANGOLAN >60 Normal >=60 [facility] Comment on above: Performed By: #### T SH, BMP #### [facility] [address] [place] [address] Dr. Tasha Dodson EGFR-NON AF ANGOLAN >60 Normal >=60 [facility] Comment on above: Performed By: #### T SH, BMP #### [facility] [address] [place] [address] Dr. Tasha Dodson Glucose [Mass/Vol] 109 mg/dL Critically high 74-106 [facility] Comment on above: Performed By: #### T SH, BMP #### [facility] [address] [place] [address] Dr. Tasha Dodson Potassium [Moles/Vol] 3.3 mmol/L Critically low 3.5-5.1 [facility] Comment on above: Performed By: #### T SH, BMP #### [facility] [address] [place] [address] Dr. Tasha Dodson Sodium [Moles/Vol] 129 mmol/L Critically low 136-[address] [facility] Comment on above: Performed By: #### T SH, BMP #### [facility] [address] [place] [address] Dr. Tasha Dodson Urea nitrogen [Mass/Vol] 9.0 mg/dL Normal 7.0-18.0 [facility] Comment on above: Performed By: #### T SH, BMP #### [facility] [address] [place] [address] Dr. Tasha Dodson Urea nitrogen/Creatinine [Mass ratio] 13.2 mg/mg Normal [facility] Comment on above: Performed By: #### T SH, BMP #### [facility] [address] [address] [address] Tasha Dodson TSHon 11-09-2021 TSH 1.193 uIU/mL Normal 0.358-3.740 [facility] Comment on above: Performed By: #### T SH, BMP #### [facility] [address] [place] [address] Dr. Tasha Dodson LIPID PROFILEon 08-06-2021 CHOL-HDL RATIO NORM SEE BELOW Normal [facility] Comment on above: Result Comment: 3.3 - 4.4 LOW RISK 4.4 - 7.1 AVERAGE RISK 7.1 - 11.0 MODERATE RISK >11.0 HIGH RISK Performed By: #### C MADM, LIPA, BNP, CMP #### [facility] [address] [place] [address] Dr. Tasha Dodson Cholesterol [Mass/Vol] 198 mg/dL Normal <=200 [facility] Comment on above: Performed By: #### C MADM, LIPA, BNP, CMP #### [facility] [address] [place] [address] Dr. Tasha Dodson Cholesterol in HDL [Mass/Vol] 77 mg/dL Critically high 40-60 [facility] Comment on above: Performed By: #### C MADM, LIPA, BNP, CMP #### [facility] [address] [place] [address] Dr. Tasha Dodson Cholesterol in LDL [Mass/Vol] 106.0 mg/dL Normal [facility] Comment on above: Performed By: #### C MADM, LIPA, BNP, CMP #### [facility] [address] [place] [address] Dr. Tasha Dodson Cholesterol.total/Shahana sterol in HDL [Mass ratio] 2.6 {ratio} Normal [facility] Comment on above: Performed By: #### C MADM, LIPA, BNP, CMP #### [facility] [address] [address] [address] Tasha Dodson HDL NORMAL > or = 60 mg/dl - LO W CARDIOVASCULAR RISK <40 mg/dl - HIGH CARDIOVASCULAR RISK Normal [facility] Comment on above: Performed By: #### C MADM, LIPA, BNP, CMP #### [facility] [address] [address] [address] Tasha Dodson LDL CALC NORMAL SEE BELOW Normal [facility] Comment on above: Result Comment: <100 mg/dl OPTIMAL 100 - 129 mg/dl NEAR OR ABOVE OPTIMAL 130 - 159 mg/dl BORDERLINE HIGH 160 - 189 mg/dl HIGH >190 mg/dl VERY HIGH Performed By: #### C MADM, LIPA, BNP, CMP #### [facility] [address] [address] [address] Tasha Dodson Triglyceride [Mass/Vol] 75 mg/dL Normal <=150 T [facility] Comment on above: Performed By: #### C MADM, LIPA, BNP, CMP #### [facility] [address] [address] [address] Tasha Dodson VLDL CALC 15.0 mg/dL Normal [facility] Comment on above: Performed By: #### C MADM, LIPA, BNP, CMP #### [facility] [address] [address] [address] Tasha Dodson LIVER PROFILEon 08-06-2021 Albumin [Mass/Vol] 3.7 g/dL Normal 3.4-5.0 [facility] Comment on above: Performed By: #### C MADM, LIPA, BNP, CMP #### [facility] [address] [place] [address] Dr. Tasha Dodson Albumin/Globulin [Mass ratio] 1.0 {ratio} Normal [facility] Comment on above: Performed By: #### C MADM, LIPA, BNP, CMP #### [facility] [address] [place] [address] Dr. Tasha Dodson ALP [Catalytic activity/Vol] 62 U/L Normal 46-116 [facility] Comment on above: Performed By: #### C MADM, LIPA, BNP, CMP #### [facility] [address] [place] [address] Dr. Tasha Dodson ALT [Catalytic activity/Vol] 26 U/L Normal 14-59 [facility] Comment on above: Performed By: #### C MADM, LIPA, BNP, CMP #### [facility] [address] [place] [address] Dr. Tasha Dodson AST [Catalytic activity/Vol] 24 U/L Normal 15-37 [facility] Comment on above: Performed By: #### C MADM, LIPA, BNP, CMP #### [facility] [address] [place] [address] Dr. Tasha Dodson BILI, CONJUGATED 0.1 mg/dL Normal 0.0-0.2 [facility] Comment on above: Performed By: #### C MADM, LIPA, BNP, CMP #### [facility] [address] [place] [address] Dr. Tasha Dodson Bilirubin [Mass/Vol] 0.5 mg/dL Normal 0.2-1.0 [facility] Comment on above: Performed By: #### C MADM, LIPA, BNP, CMP #### [facility] [address] [place] [address] Dr. Tasha Dodson Globulin (S) [Mass/Vol] 3.8 g/dL Normal T [facility] Comment on above: Performed By: #### C MADM, LIPA, BNP, CMP #### [facility] [address] [place] [address] Dr. Tasha Dodson Protein [Mass/Vol] 7.5 g/dL Normal 6.4-8.2 [facility] Comment on above: Performed By: #### C MADM, LIPA, BNP, CMP #### [facility] [address] [place] [address] Dr. Tasha Dodson FREE T4on 07-28-2021 Free T4 [Mass/Vol] 1.32 ng/dL Normal 0.76-1.46 [facility] Comment on above: Performed By: #### T SH, BMP #### [facility] [address] [address] [address] Tasha Dodson PROF CHEM 8 (BAS METB)on Anion gap [Moles/Vol] 11.6 mmol/L Normal [facility] Comment on above: Performed By: #### B MP, TSH #### [facility] [address] [address] [address] Tasha Dodson Calcium [Mass/Vol] 9.4 mg/dL Normal 8.5-10.1 [facility] Comment on above: Performed By: #### B MP, TSH #### [facility] [address] [place] [address] Dr. Tasha Dodson Chloride [Moles/Vol] 93 mmol/L Critically low 98-107 [facility] Comment on above: Performed By: #### B MP, TSH #### [facility] [address] [address] [address] Tasha Dodson CO2 [Moles/Vol] 29.8 mmol/L Normal 21.0-32.0 [facility] Comment on above: Performed By: #### B MP, TSH #### [facility] [address] [place] [address] Dr. Tasha Dodson Creatinine [Mass/Vol] 0.74 mg/dL Normal 0.55-1.02 [facility] Comment on above: Performed By: #### B MP, TSH #### [facility] [address] [address] [address] Tasha Dodson EGFR-AF ANGOLAN >60 Normal >=60 [facility] Comment on above: Performed By: #### B MP, TSH #### [facility] [address] [address] [address] Tasha Dodson EGFR-NON AF ANGOLAN >60 Normal >=60 [facility] Comment on above: Performed By: #### B MP, TSH #### [facility] [address] [place] [address] Dr. Tasha Dodson Glucose [Mass/Vol] 114 mg/dL Critically high 74-106 T [facility] Comment on above: Performed By: #### B MP, TSH #### [facility] [address] [place] [address] Dr. Tasha Dodson Potassium [Moles/Vol] 3.4 mmol/L Critically low 3.5-5.1 [facility] Comment on above: Performed By: #### B MP, TSH #### [facility] [address] [place] [address] Dr. Tasha Dodson Sodium [Moles/Vol] 131 mmol/L Critically low 136-145 [facility] Comment on above: Performed By: #### B MP, TSH #### [facility] [address] [place] [address] Dr. Tasha Dodson Urea nitrogen [Mass/Vol] 12.0 mg/dL Normal 7.0-18.0 [facility] Comment on above: Performed By: #### B MP, TSH #### [facility] [address] [place] [address] Dr. Tasha Dodson Urea nitrogen/Creatinine [Mass ratio] 16.2 mg/mg Normal [facility] Comment on above: Performed By: #### B MP, TSH #### [facility] [address] [place] [address] Dr. Tasha Dodson TSHon 07-28-2021 TSH 1.790 uIU/mL Normal 0.358-3.740 [facility] Comment on above: Performed By: #### B MP, TSH #### [facility] [address] [place] [address] Dr. Tasha Dodson TSH RANGE SEE BELOW Normal [facility] Comment on above: Result Comment: <0.3 4 UIU/ml HYPERTHYROID 0.34-5.60 UIU/ml EUTHYROID >5.60 UIU/ml HYPOTHYROID Performed By: #### B MP, TSH #### [facility] [address] [place] [address] Dr. Tasha Dodson CBC Auto Differentialon 10-0 Basophils (Bld) [#/Vol] 0.1 10*3/uL 0 - 0.2 K/uL [place] Basophils/100 WBC (Bld) 1.1 % [place] Eosinophils (Bld) [#/Vol] 0.2 10*3/uL 0 - 0.7 K/uL [place] Eosinophils/100 WBC (Bld) 1.4 % [place] Erythrocyte distribution width (RBC) [Ratio] 14.4 % 11.5 - 14.5 % [place] Hematocrit (Bld) [Volume fraction] 33.6 % Low 37 - 47 % [place] Hemoglobin (Bld) [Mass/Vol] 11.1 g/dL Low 12 - 16 g/dL [place] Interpretation and review of laboratory results Abnormal [place] Lymphocytes (Bld) [#/Vol] 2.3 10*3/uL 1 - 4.8 K/uL [place] Lymphocytes/100 WBC (Bld) 18.0 % [place] MCH (RBC) [Entitic mass] 29.5 pg 27 - 31.3 pg [place] MCHC (RBC) [Mass/Vol] 33.0 % 33 - 37 % [place] MCV (RBC) [Entitic vol] 89.5 fL 82 - 100 fL [place] Monocytes (Bld) [#/Vol] 0.9 10*3/uL High 0.2 - 0.8 K/uL [place] Monocytes/100 WBC (Bld) 6.9 % [place] Neutrophils Absolute 9.1 K/uL High 1.4 - 6 .5 K/uL [place] Neutrophils/100 WBC (Bld) 72.6 % [place] Platelets (Bld) [#/Vol] 548 10*3/uL High 130 - 400 K/uL [place] RBC (Bld) [#/Vol] 3.75 10*6/uL Low [facility] WBC (Bld) [#/Vol] 12.5 10*3/uL High 4.8 - 10.8 K/uL [facility], [place] CBC With Platelet and Differ entialon 11-20-2018 Basophils (Bld) [#/Vol] 0.1 10*3/uL Normal 0.0-0.2 [facility] Comment on above: Performed By: #### E SR #### [facility] [address] [place] [address] Basophils/100 WBC (Bld) 1.1 % Normal [facility] Comment on above: Performed By: #### E SR #### [facility] [address] [place] [address] Eosinophils (Bld) [#/Vol] 0.2 10*3/uL Normal 0.0-0.7 [facility] Comment on above: Performed By: #### E SR #### [facility] [address] [place] [address] Eosinophils/100 WBC (Bld) 1.4 % Normal [facility] Comment on above: Performed By: #### E SR #### [facility] [address] [place] [address] Erythrocyte distribution width (RBC) [Ratio] 14.4 % Normal 11.5-14.5 [facility] Comment on above: Performed By: #### E SR #### [facility] [address] [place] [address] Hematocrit (Bld) [Volume fraction] 33.6 % Low 37.0-47.0 [facility] Comment on above: Performed By: #### E SR #### [facility] [address] [place] [address] Hemoglobin (Bld) [Mass/Vol] 11.1 g/dL Low 12.0-16.0 [facility] Comment on above: Performed By: #### E SR #### [facility] [address] [place] [address] Lymphocytes (Bld) [#/Vol] 2.3 10*3/uL Normal 1.0-4.8 [facility] Comment on above: Performed By: #### E SR #### [facility] [address] [place] [address] Lymphocytes/100 WBC (Bld) 18.0 % Normal [facility] Comment on above: Performed By: #### E SR #### [facility] [address] [place] [address] MCH (RBC) [Entitic mass] 29.5 pg Normal 27.0-31.3 [facility] Comment on above: Performed By: #### E SR #### [facility] [address] [place] [address] MCHC (RBC) [Mass/Vol] 33.0 % Normal 33.0-37.0 [facility] Comment on above: Performed By: #### E SR #### [facility] [address] [place] [address] MCV (RBC) [Entitic vol] 89.5 fL Normal 82.0-100.0 [facility] Comment on above: Performed By: #### E SR #### [facility] [address] [place] [address] Monocytes (Bld) [#/Vol] 0.9 10*3/uL Critically high 0.2-0. 8 [facility] Comment on above: Performed By: #### E SR #### [facility] [address] [place] [address] Monocytes/100 WBC (Bld) 6.9 % Normal [facility] Comment on above: Performed By: #### E SR #### [facility] [address] [place] [address] Neutrophils (Bld) [#/Vol] 9.1 10*3/uL Critically high 1.4-6.5 [facility] Comment on above: Performed By: #### E SR #### [facility] [address] [place] [address] Neutrophils/100 WBC (Bld) 72.6 % Normal [facility] Comment on above: Performed By: #### E SR #### [facility] [address] [place] [address] Platelets (Bld) [#/Vol] 548 10*3/uL Critically high 130-40 0 [facility] Comment on above: Performed By: #### E SR #### [facility] [address] [place] [address] RBC (Bld) [#/Vol] 3.75 10*6/uL Low 4.20-5.40 [facility] Comment on above: Performed By: #### E SR #### [facility] [address] [place] [address] WBC (Bld) [#/Vol] 12.5 10*3/uL Critically high 4.8-10.8 [facility] Comment on above: Performed By: #### E SR #### [facility] [address] [place] [address] EKG 12 Leadon 11-20-2018 Atrial Rate 79 BPM [facility] [place] P [place] 58 degrees [facility] [place] P-R Interval 176 ms [facility] [place] Q-T Interval 404 ms [facility] [facility] [place] QRS Duration 130 ms [facility] [place] QTc Calculation (Bazett) 463 ms [facility] [place] R [place] -11 degrees [facility] [place] T [place] 5 degrees [facility] [place] Urea nitrogen [Mass/Vol] Normal sinus rhythm Right bundle branch block Moderate voltage criteria for LVH, may be normal variant Abnormal ECG When compared with ECG of 13-NOV-2018 08:33, No significant change was found Confirmed by Анна Zamarripa ([id number]) on 11/20/2018 9:39:56 AM [employer] [facility] [place] Ventricular Rate 79 BPM [facility] [employer] Joseph, Chpo Incoming Results From [facility] - 11/20/2018 9:40 AM EDT Normal sinus rhythm Right bundle branch block Moderate voltage criteria for LVH, may be normal variant Abnormal ECG When compared with ECG of 13-NOV-2018 08:33, No significant change was found Confirmed by Анна Zamarripa ([id number]) on 11/20/2018 9:39:56 AM [place] CBC Auto Differentialon 10-23 Neutrophils Absolute 6.1 K/uL 1.4 - 6 .5 K/uL [place] CBC With Platelet and Differ entialon 11-19-2018 Basophils (Bld) [#/Vol] 0.2 10*3/uL Normal 0.0-0.2 [place] Comment on above: Performed By: #### C MP #### [facility] [address] [place] [address] Basophils/100 WBC (Bld) 1.5 % Normal [place] Comment on above: Performed By: #### C MP #### [facility] [address] [place] [address] Eosinophils (Bld) [#/Vol] 0.3 10*3/uL Normal 0.0-0.7 [place] Comment on above: Performed By: #### C MP #### [facility] [address] [place] [address] Eosinophils/100 WBC (Bld) 2.5 % Normal [place] Comment on above: Performed By: #### C MP #### [facility] [address] [place] [address] Erythrocyte distribution width (RBC) [Ratio] 14.1 % Normal 11.5-14.5 [place] Comment on above: Performed By: #### C MP #### [facility] [address] [place] [address] Hematocrit (Bld) [Volume fraction] 29.3 % Low 37.0-47.0 [place] Comment on above: Performed By: #### C MP #### [facility] [address] [place] [address] Hemoglobin (Bld) [Mass/Vol] 10.1 g/dL Low 12.0-16.0 [place] Comment on above: Performed By: #### C MP #### [facility] [address] [place] [address] Lymphocytes (Bld) [#/Vol] 2.8 10*3/uL Normal 1.0-4.8 [place] Comment on above: Performed By: #### C MP #### [facility] [address] [place] [address] Lymphocytes/100 WBC (Bld) 27.3 % Normal [place] Comment on above: Performed By: #### C MP #### [facility] [address] [place] [address] MCH (RBC) [Entitic mass] 30.7 pg Normal 27.0-31.3 [place] Comment on above: Performed By: #### C MP #### [facility] [address] [facility] [address] MCHC (RBC) [Mass/Vol] 34.6 % Normal 33.0-37.0 [place] Comment on above: Performed By: #### C MP #### [facility] [address] [facility] [address] MCV (RBC) [Entitic vol] 88.9 fL Normal 82.0-100.0 [place] Comment on above: Performed By: #### C MP #### [facility] [address] [place] [address] Monocytes (Bld) [#/Vol] 0.9 10*3/uL Critically high 0.2-0. 8 [place] Comment on above: Performed By: #### C MP #### [facility] [address] [place] [address] Monocytes/100 WBC (Bld) 9.2 % Normal [place] Comment on above: Performed By: #### C MP #### [facility] [address] [place] [address] Neutrophils (Bld) [#/Vol] 6.1 10*3/uL Normal 1.4-6.5 [facility] Comment on above: Performed By: #### C MP #### [facility] [address] [place] [address] Neutrophils/100 WBC (Bld) 59.5 % Normal [place] Comment on above: Performed By: #### C MP #### [facility] [address] [place] [address] Platelets (Bld) [#/Vol] 396 10*3/uL Normal 130-400 [place] Comment on above: Performed By: #### C MP #### [facility] [address] [place] [address] RBC (Bld) [#/Vol] 3.30 10*6/uL Low 4.20-5.40 [place] Comment on above: Performed By: #### C MP #### [facility] [address] [place] [address] WBC (Bld) [#/Vol] 10.2 10*3/uL Normal 4.8-10.8 [place] Comment on above: Performed By: #### C MP #### [facility] [address] [place] [address] High Sensitivity CRPon 11-19 High Sensitivity CRP 89.2 mg/L Critically high 0.0-5.0 [facility] Comment on above: Performed By: #### E SR #### [facility] [address] [place] [address] High sensitivity CRPon 11-19 CRP High Sensitivity 89.2 mg/L High 0 - 5 mg/L [place] Interpretation and review of laboratory results Abnormal [place] Otheron 11-19-2018 Interpretation and review of laboratory results Abnormal [place] Sedimentation Rateon 019 Sedimentation Rate 55 mm Critically high 0-30 [facility] Comment on above: Performed By: #### C MP #### [facility] [address] [place] [address] Sed Rate 55 mm High 0 - 30 mm [facility], [place] Basic Metabolic Panelon 10-22 Anion gap [Moles/Vol] 14 mmol/L Normal 9-15 [facility] Comment on above: Performed By: #### C MP #### [facility] [address] [place] [address] Calcium [Mass/Vol] 8.8 mg/dL Normal 8.5-9.9 [facility] Comment on above: Performed By: #### C MP #### [facility] [address] [place] [address] Chloride [Moles/Vol] 95 mmol/L Normal 95-107 [facility] Comment on above: Performed By: #### C MP #### [facility] [address] [place] [address] CO2 [Moles/Vol] 26 mmol/L Normal 20-31 [facility] Comment on above: Performed By: #### C MP #### [facility] [address] [place] [address] Creatinine [Mass/Vol] 0.58 mg/dL Normal 0.50-0.90 [facility] Comment on above: Performed By: #### C MP #### [facility] [address] [place] [address] GFR/1.73 sq M predicted among blacks MDRD (S/P/Bld) [Vol rate/Area] mL/min/{1.73_m2} Normal >60 [facility] Comment on above: Result Comment: >60 mL/min/1.73m2 EGFR, calc. for ages 18 and older using the MDRD formula (not corrected for weight), is valid for stable renal function. Performed By: #### C MP #### [facility] [address] [place] [address] GFR/1.73 sq M.predicted MDRD (S/P/Bld) [Vol rate/Area] mL/min/{1.73_m2} Normal >60 [facility] Comment on above: Result Comment: >60 mL/min/1.73m2 EGFR, calc. for ages 18 and older using the MDRD formula (not corrected for weight), is valid for stable renal function. Performed By: #### C MP #### [facility] [address] [place] [address] Glucose [Mass/Vol] 156 mg/dL Critically high 70-99 [facility] Comment on above: Performed By: #### C MP #### [facility] [address] [place] [address] Potassium [Moles/Vol] 3.3 mmol/L Low 3.4-4.9 [facility] Comment on above: Performed By: #### C MP #### [facility] [address] [place] [address] Sodium [Moles/Vol] 135 mmol/L Normal 135-144 [facility] Comment on above: Performed By: #### C MP #### [facility] [address] [place] [address] Urea nitrogen [Mass/Vol] 11 mg/dL Normal 8-23 [facility] Comment on above: Performed By: #### C MP #### [facility] [address] [place] [address] Anion gap [Moles/Vol] 14 mmol/L [facility], [place] Calcium [Mass/Vol] 8.8 mg/dL 8.5 - 9.9 mg/dL [facility], [place] Chloride [Moles/Vol] 95 mmol/L [facility] [place], [place] CO2 [Moles/Vol] 26 mmol/L [facility], [place] Creatinine [Mass/Vol] 0.58 mg/dL 0.5 - 0.9 mg/dL [facility], [place] GFR >60.0 >60 [facility], [place] Comment on above: >60 mL/min/1.73m2 EG FR, calc. for ages 18 and older using the MDRD formula (not corrected for weight), is valid for stable renal function. GFR Non- >60.0 >60 [place] Comment on above: >60 mL/min/1.73m2 EG FR, calc. for ages 18 and older using the MDRD formula (not corrected for weight), is valid for stable renal function. Glucose [Mass/Vol] 156 mg/dL High 70 - 99 mg/dL [place] Interpretation and review of laboratory results Abnormal [place] Potassium [Moles/Vol] 3.3 mmol/L [place] Sodium [Moles/Vol] 135 mmol/L [place] Urea nitrogen [Mass/Vol] 11 mg/dL 8 - 23 mg/dL [place] Magnesiumon 11-18-2018 Magnesium [Mass/Vol] 1.8 mg/dL Normal 1.7-2.4 [facility] Comment on above: Performed By: #### C MP #### [facility] [address] [facility] [address] Magnesium [Mass/Vol] 1.8 mg/dL 1.7 - 2 .4 mg/dL [place] TSH w/out Reflexon 9 TSH Qn 0.880 uIU/mL Normal 0.440-3.86 [facility] Comment on above: Performed By: #### C MP #### [facility] [address] [place] [address] TSH without Reflexon 019 TSH Qn 0.880 m[IU]/L [place] CBC Auto Differentialon 10-22 Basophils (Bld) [#/Vol] 0.1 10*3/uL 0 - 0.2 K/uL [place] Basophils/100 WBC (Bld) 0.7 % [place] Eosinophils (Bld) [#/Vol] 0.4 10*3/uL 0 - 0.7 K/uL [place] Eosinophils/100 WBC (Bld) 2.8 % [place] Erythrocyte distribution width (RBC) [Ratio] 14.2 % 11.5 - 14.5 % [place] Hematocrit (Bld) [Volume fraction] 32.3 % Low 37 - 47 % [place] Hemoglobin (Bld) [Mass/Vol] 10.8 g/dL Low 12 - 16 g/dL [place] Interpretation and review of laboratory results Abnormal [place] Lymphocytes (Bld) [#/Vol] 2.6 10*3/uL 1 - 4.8 K/uL [place] Lymphocytes/100 WBC (Bld) 16.8 % [place] MCH (RBC) [Entitic mass] 30.3 pg 27 - 31.3 pg [place] MCHC (RBC) [Mass/Vol] 33.4 % 33 - 37 % [place] MCV (RBC) [Entitic vol] 90.5 fL 82 - 100 fL [place] Monocytes (Bld) [#/Vol] 1.3 10*3/uL High 0.2 - 0.8 K/uL [place] Monocytes/100 WBC (Bld) 8.3 % [place] Neutrophils Absolute 11.1 K/uL High 1.4 - 6 .5 K/uL [place] Neutrophils/100 WBC (Bld) 71.4 % [place] Platelets (Bld) [#/Vol] 375 10*3/uL 130 - 400 K/uL [place] RBC (Bld) [#/Vol] 3.57 10*6/uL Low [place] WBC (Bld) [#/Vol] 15.5 10*3/uL High 4.8 - 10.8 K/uL [place] CBC With Platelet and Differ entialon 11-17-2018 Basophils (Bld) [#/Vol] 0.1 10*3/uL Normal 0.0-0.2 [facility] Comment on above: Performed By: #### C MP #### [facility] [address] [place] [address] Basophils/100 WBC (Bld) 0.7 % Normal [facility] Comment on above: Performed By: #### C MP #### [facility] [address] [place] [address] Eosinophils (Bld) [#/Vol] 0.4 10*3/uL Normal 0.0-0.7 [facility] Comment on above: Performed By: #### C MP #### [facility] [address] [place] [address] Eosinophils/100 WBC (Bld) 2.8 % Normal [facility] Comment on above: Performed By: #### C MP #### [facility] [address] [place] [address] Erythrocyte distribution width (RBC) [Ratio] 14.2 % Normal 11.5-14.5 [facility] Comment on above: Performed By: #### C MP #### [facility] [address] [place] [address] Hematocrit (Bld) [Volume fraction] 32.3 % Low 37.0-47.0 [facility] Comment on above: Performed By: #### C MP #### [facility] [address] [place] [address] Hemoglobin (Bld) [Mass/Vol] 10.8 g/dL Low 12.0-16.0 [facility] Comment on above: Performed By: #### C MP #### [facility] [address] [place] [address] Lymphocytes (Bld) [#/Vol] 2.6 10*3/uL Normal 1.0-4.8 [facility] Comment on above: Performed By: #### C MP #### [facility] [address] [place] [address] Lymphocytes/100 WBC (Bld) 16.8 % Normal [facility] Comment on above: Performed By: #### C MP #### [facility] [address] [place] [address] MCH (RBC) [Entitic mass] 30.3 pg Normal 27.0-31.3 [facility] Comment on above: Performed By: #### C MP #### [facility] [address] [place] [address] MCHC (RBC) [Mass/Vol] 33.4 % Normal 33.0-37.0 [facility] Comment on above: Performed By: #### C MP #### [facility] [address] [place] [address] MCV (RBC) [Entitic vol] 90.5 fL Normal 82.0-100.0 [facility] Comment on above: Performed By: #### C MP #### [facility] [address] [place] [address] Monocytes (Bld) [#/Vol] 1.3 10*3/uL Critically high 0.2-0. 8 [facility] Comment on above: Performed By: #### C MP #### [facility] [address] [place] [address] Monocytes/100 WBC (Bld) 8.3 % Normal [facility] Comment on above: Performed By: #### C MP #### [facility] [address] [place] [address] Neutrophils (Bld) [#/Vol] 11.1 10*3/uL Critically high 1.4-6.5 [facility] Comment on above: Performed By: #### C MP #### [facility] [address] [place] [address] Neutrophils/100 WBC (Bld) 71.4 % Normal [facility] Comment on above: Performed By: #### C MP #### [facility] [address] [place] [address] Platelets (Bld) [#/Vol] 375 10*3/uL Normal 130-400 [facility] Comment on above: Performed By: #### C MP #### [facility] [address] [place] [address] RBC (Bld) [#/Vol] 3.57 10*6/uL Low 4.20-5.40 [facility] Comment on above: Performed By: #### C MP #### [facility] [address] [place] [address] WBC (Bld) [#/Vol] 15.5 10*3/uL Critically high 4.8-10.8 [facility] Comment on above: Performed By: #### C MP #### [facility] [address] [facility] [address] High Sensitivity CRPon 11-17 High Sensitivity CRP 230.1 mg/L Critically high 0.0-5.0 [facility] Comment on above: Performed By: #### C MP #### [facility] [address] [facility] [address] High sensitivity CRPon 11-17 CRP High Sensitivity 230.1 mg/L High 0 - 5 mg/L [place] Interpretation and review of laboratory results Abnormal [place] Sedimentation Rateon 019 Sedimentation Rate 50 mm Critically high 0-30 [facility] Comment on above: Performed By: #### C MP #### [facility] [address] [facility] [address] Interpretation and review of laboratory results Abnormal [place] Sed Rate 50 mm High 0 - 30 mm [place] US DUP LOWER EXTREMITIES VAUGHN ATERAL VENOUSon 11-17-2018 NO DVT IDENTIFIED IN EITHER LOWER EXTREMITY. [place] Joseph, Chpo Incoming Radiant Results From [employer] - 11/17/2018 8:05 AM EDT US DUP [...] NO DVT IDENTIFIED IN EITHER LOWER EXTREMITY. [place] DUP LOWER EXTREMITIES BILATERAL VENOUS : 11/16/2018 CLINICAL HISTORY: LEG SWELLING, PAIN, DVT SUSPECTED . COMPARISON: None available. Grayscale, compression, color and waveform Doppler analysis of both lower extremity deep venous systems was performed with augmentation. FINDINGS: There is no deep venous thrombosis, abnormal masses, fluid collections or other findings of concern identified within either lower extremity. [place] Urine Cultureon 11-17-2018 Bacteria identified Cx Nom (U) No growth 24 hours [place], [place] ORDERED BY: ADDY COKER SOURCE: Urine Clean Catch COLLECTED: 11/15/18 19:05 ANTIBIOTICS AT DI.: RECEIVED : 11/15/18 19:05 [place] CBC With Platelet and Differ entialon 11-16-2018 Neutrophils (Bld) [#/Vol] 15.5 10*3/uL Critically high 1.4-6.5 [facility] Comment on above: Performed By: #### P TT #### [facility] [address] [place] [address] Basophils (Bld) [#/Vol] 0.2 10*3/uL Normal 0.0-0.2 [place] Comment on above: Performed By: #### P TT #### [facility] [address] [place] [address] Basophils/100 WBC (Bld) 0.9 % Normal [place] Comment on above: Performed By: #### P TT #### [facility] [address] [place] [address] Eosinophils (Bld) [#/Vol] 0.1 10*3/uL Normal 0.0-0.7 [place] Comment on above: Performed By: #### P TT #### [facility] [address] [place] [address] Eosinophils/100 WBC (Bld) 0.8 % Normal [place] Comment on above: Performed By: #### P TT #### [facility] [address] [place] [address] Erythrocyte distribution width (RBC) [Ratio] 14.4 % Normal 11.5-14.5 [place] Comment on above: Performed By: #### P TT #### [facility] [address] [place] [address] Hematocrit (Bld) [Volume fraction] 33.4 % Low 37.0-47.0 [place] Comment on above: Performed By: #### P TT #### [facility] [address] [place] [address] Hemoglobin (Bld) [Mass/Vol] 11.0 g/dL Low 12.0-16.0 [place] Comment on above: Performed By: #### P TT #### [facility] [address] [facility] [address] Lymphocytes (Bld) [#/Vol] 1.5 10*3/uL Normal 1.0-4.8 [place] Comment on above: Performed By: #### P TT #### [facility] [address] [facility] [address] Lymphocytes/100 WBC (Bld) 7.9 % Normal [place] Comment on above: Performed By: #### P TT #### [facility] [address] [facility] [address] MCH (RBC) [Entitic mass] 29.4 pg Normal 27.0-31.3 [place] Comment on above: Performed By: #### P TT #### [facility] [address] [place] [address] MCHC (RBC) [Mass/Vol] 32.9 % Low 33.0-37.0 [place], [place] Comment on above: Performed By: #### P TT #### [facility] [address] [place] [address] MCV (RBC) [Entitic vol] 89.4 fL Normal 82.0-100.0 [place] Comment on above: Performed By: #### P TT #### [facility] [address] [facility] [address] Monocytes (Bld) [#/Vol] 1.3 10*3/uL Critically high 0.2-0. 8 [place] Comment on above: Performed By: #### P TT #### [facility] [address] [facility] [address] Monocytes/100 WBC (Bld) 7.1 % Normal [place] Comment on above: Performed By: #### P TT #### [facility] [address] [facility] [address] Neutrophils/100 WBC (Bld) 83.3 % Normal [place] Comment on above: Performed By: #### P TT #### [facility] [address] [facility] [address] Platelets (Bld) [#/Vol] 304 10*3/uL Normal 130-400 [place] Comment on above: Performed By: #### P TT #### [facility] [address] [facility] [address] RBC (Bld) [#/Vol] 3.74 10*6/uL Low 4.20-5.40 [place], [place] Comment on above: Performed By: #### P TT #### [facility] [address] [facility] [address] WBC (Bld) [#/Vol] 18.6 10*3/uL Critically high 4.8-10.8 [place], [place] Comment on above: Performed By: #### P TT #### [facility] [address] [facility] [address] CBC auto differentialon -2 Interpretation and review of laboratory results Abnormal [place] Neutrophils Absolute 15.5 K/uL High 1.4 - 6 .5 K/uL [facility]- [place], [place] ECHO Complete 2D W Doppler W Coloron 11-16-2018 Transthoracic Echocardiography Report (TTE) Demographics Patient Name MERCY GANDHI Gender Female Patient Number [id number] Race Unknown Ethnicity Visit Number [id number] Room Number R238 Corporate ID Date of Study 11/16/2018 Referring Physician DO Natalia Dickens Date of 1935 Vp Analysis 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 Age 83 year(s) Interpreting [facility] Physician Cardiology Cain Quinonez MD [...] Root: 2.35 cm LVOT Diameter: 1.65 cm [facility]- [place], [place] Joseph, Chpo Incoming Cardiovascular Results From [facility] - 11/16/2018 5:05 PM EDT Transthoracic Echocardiography Report (TTE) Demographics Patient Name MERCY GANDHI Gender Female Patient Number [id number] Race Unknown Ethnicity Visit Number [id number] Room Number R238 Corporate ID Date of Study 11/16/2018 Referring Physician Niki Vazquez, DO Number Date of 1935 Vp Analysis Althea Bella [facility] Age 83 year(s) Interpreting [facility] Physician Cardiology Cain Quinonez MD [...] Root: 2.35 cm LVOT Diameter: 1.65 cm [place] Microscopic Urinalysison Bacteria, UA Negative /HPF [place] Epi Cells 3-5 /HPF [place] Interpretation and review of laboratory results Abnormal [place] RBC (U) [#/Vol] 3-5 Abnormal [place] Renal Epithelial, Urine 0-2 Abnormal /HPF [place] WBC, UA None seen [place] CAROTID ARTERY BILATERALo n 11-16-2018 [...] Damped resistive CCA decreased decreased resistive CCA [employer] [facility]- [place], [place] Joseph, Chpo Incoming Radiant Results From [facility] - 11/16/2018 10:40 AM EDT Patient : [...] Damped resistive CCA decreased decreased resistive CCA [place], [place] Patient 5 : 1935 Age: 83 [...] and noncalcified plaque bilateral carotid arterial systems [place] DUP LOWER EXTREMITIES VAUGHN ATERAL [...] MD 11/17/18 Final result Normal [facility] Urine Microscopicon 11-17-19 19 Bacteria LM.HPF (Urine sed) [#/Area] Negative Normal [facility] Comment on above: Performed By: #### P TT #### [facility] [address] [facility] [address] Epithelial cells LM Ql (Urine sed) 3-5 Normal [facility] Comment on above: Performed By: #### P TT #### [facility] [address] [facility] [address] RBC (U) [#/Vol] 3-5 Abnormal 0-2 [facility] Comment on above: Performed By: #### P TT #### [facility] [address] [place] [address] Urine Renal Epithelial 0-2 Abnormal Me [facility] Comment on above: Performed By: #### P TT #### [facility] [address] [place] [address] WBC (U) [#/Vol] None seen Normal 0-5 [facility] Comment on above: Performed By: #### P TT #### [facility] [address] [place] [address] XR CHEST PORTABLEon 11-17-19 19 Joseph, Chpo Incoming Radiant Results From [facility] - 11/16/2018 10:21 AM EDT EXAMINATION: XR CHEST PORTABLE CLINICAL HISTORY: fever . History of back surgery. COMPARISONS: None available. FINDINGS: Single AP portable view the chest obtained on November 15, 2018 at 2124 hours. The heart is not enlarged. Mediastinum is not widened. Calcified aorta is not dilated. Lungs are clear. The chest wall is unremarkable. CONCLUSION: NO ACUTE PROCESS [place] EXAMINATION: XR CHES T PORTABLE CLINICAL HISTORY: fever . History of back surgery. COMPARISONS: None available. FINDINGS: Single AP portable view the chest obtained on November 15, 2018 at 2124 hours. The heart is not enlarged. Mediastinum is not widened. Calcified aorta is not dilated. Lungs are clear. The chest wall is unremarkable. CONCLUSION: NO ACUTE PROCESS [place] CBC Auto Differentialon 10-22 Anisocytosis Ql (Bld) 1+ [place] Bands Relative 4 % Low 5 - 11 % [place] Basophils (Bld) [#/Vol] 0.0 10*3/uL 0 - 0.2 K/uL [place] Basophils/100 WBC (Bld) 0.6 % [place] Eosinophils (Bld) [#/Vol] 0.0 10*3/uL 0 - 0.7 K/uL [place] Eosinophils/100 WBC (Bld) 0.9 % [place] Erythrocyte distribution width (RBC) [Ratio] 14.6 % High 11.5 - 14.5 % [place] Hematocrit (Bld) [Volume fraction] 33.3 % Low 37 - 47 % [place] Hemoglobin (Bld) [Mass/Vol] 10.9 g/dL Low 12 - 16 g/dL [place] Interpretation and review of laboratory results Abnormal [place] Lymphocytes (Bld) [#/Vol] 3.5 10*3/uL 1 - 4.8 K/uL [place] Lymphocytes/100 WBC (Bld) 17.0 % [place] MCH (RBC) [Entitic mass] 29.8 pg 27 - 31.3 pg [place] MCHC (RBC) [Mass/Vol] 32.9 % Low 33 - 37 % [place] MCV (RBC) [Entitic vol] 90.7 fL 82 - 100 fL [place] Microcytes 1+ [place] Monocytes (Bld) [#/Vol] 0.0 10*3/uL Low 0.2 - 0.8 K/uL [place] Monocytes/100 WBC (Bld) 7.7 % [place] Neutrophils Absolute 17.3 K/uL High 1.4 - 6 .5 K/uL [place] Neutrophils/100 WBC (Bld) 79.0 % [place] PLATELET SLIDE REVIEW Normal [place] Platelets (Bld) [#/Vol] 315 10*3/uL 130 - 400 K/uL [place] RBC (Bld) [#/Vol] 3.67 10*6/uL Low [place] WBC (Bld) [#/Vol] 20.8 10*3/uL High 4.8 - 10.8 K/uL [place] CBC With Platelet No Differe ntialon 11-15-2018 Erythrocyte distribution width (RBC) [Ratio] 14.5 % Normal 11.5-14.5 [facility] Comment on above: Performed By: #### P TT #### [facility] [address] [place] [address] Hematocrit (Bld) [Volume fraction] 36.9 % Low 37.0-47.0 [facility] Comment on above: Performed By: #### P TT #### [facility] [address] [place] [address] Hemoglobin (Bld) [Mass/Vol] 11.9 g/dL Low 12.0-16.0 [facility] Comment on above: Performed By: #### P TT #### [facility] [address] [place] [address] MCH (RBC) [Entitic mass] 29.4 pg Normal 27.0-31.3 [facility] Comment on above: Performed By: #### P TT #### [facility] [address] [place] [address] MCHC (RBC) [Mass/Vol] 32.3 % Low 33.0-37.0 [facility] Comment on above: Performed By: #### P TT #### [facility] [address] [address] MCV (RBC) [Entitic vol] 91.1 fL Normal 82.0-100.0 M [facility] Comment on above: Performed By: #### P TT #### [facility] [address] [place] [address] Platelets (Bld) [#/Vol] 341 10*3/uL Normal 130-400 [facility] Comment on above: Performed By: #### P TT #### [facility] [address] [place] [address] RBC (Bld) [#/Vol] 4.05 10*6/uL Low 4.20-5.40 [facility] Comment on above: Performed By: #### P TT #### [facility] [address] [place] [address] WBC (Bld) [#/Vol] 19.8 10*3/uL Critically high 4.8-10.8 [facility] Comment on above: Performed By: #### P TT #### [facility] [address] [place] [address] CBC With Platelet and Differ entialon 11-15-2018 Anisocytosis Ql (Bld) 1+ Normal [facility] Comment on above: Performed By: #### P TT #### [facility] [address] [place] [address] Bands 4 % Low 5-11 [facility] Comment on above: Performed By: #### P TT #### [facility] [address] [place] [address] Basophils (Bld) [#/Vol] 0.0 10*3/uL Normal 0.0-0.2 [facility] Comment on above: Performed By: #### P TT #### [facility] [address] [address] Basophils/100 WBC (Bld) 0.6 % Normal [facility] Comment on above: Performed By: #### P TT #### [facility] [address] [place] [address] Eosinophils (Bld) [#/Vol] 0.0 10*3/uL Normal 0.0-0.7 [facility] Comment on above: Performed By: #### P TT #### [facility] [address] [place] [address] Eosinophils/100 WBC (Bld) 0.9 % Normal [facility] Comment on above: Performed By: #### P TT #### [facility] [address] [place] [address] Lymphocytes (Bld) [#/Vol] 3.5 10*3/uL Normal 1.0-4.8 [facility] Comment on above: Performed By: #### P TT #### [facility] [address] [address] Lymphocytes/100 WBC (Bld) 17.0 % Normal [facility] Comment on above: Performed By: #### P TT #### [facility] [address] [address] Microcytic 1+ Normal [facility] Comment on above: Performed By: #### P TT #### [facility] [address] [place] [address] Monocytes (Bld) [#/Vol] 0.0 10*3/uL Low 0.2-0.8 [facility] Comment on above: Performed By: #### P TT #### [facility] [address] [place] [address] Monocytes/100 WBC (Bld) 7.7 % Normal [facility] Comment on above: Performed By: #### P TT #### [facility] [address] [place] [address] Neutrophils (Bld) [#/Vol] 17.3 10*3/uL Critically high 1.4-6.5 [facility] Comment on above: Performed By: #### P TT #### [facility] [address] [place] [address] Neutrophils/100 WBC (Bld) 79.0 % Normal [facility] Comment on above: Performed By: #### P TT #### [facility] [address] [place] [address] Platelet Slide Review Normal Normal [facility] Comment on above: Performed By: #### P TT #### [facility] [address] [place] [address] Erythrocyte distribution width (RBC) [Ratio] 14.6 % Critically high 11.5-14.5 [facility] Comment on above: Performed By: #### P TT #### [facility] [address] [place] [address] Hematocrit (Bld) [Volume fraction] 33.3 % Low 37.0-47.0 [facility] Comment on above: Performed By: #### P TT #### [facility] [address] [place] [address] Hemoglobin (Bld) [Mass/Vol] 10.9 g/dL Low 12.0-16.0 [facility] Comment on above: Performed By: #### P TT #### [facility] [address] [place] [address] MCH (RBC) [Entitic mass] 29.8 pg Normal 27.0-31.3 [facility] Comment on above: Performed By: #### P TT #### [facility] [address] [place] [address] MCHC (RBC) [Mass/Vol] 32.9 % Low 33.0-37.0 [facility] Comment on above: Performed By: #### P TT #### [facility] [address] [place] [address] MCV (RBC) [Entitic vol] 90.7 fL Normal 82.0-100.0 [facility] Comment on above: Performed By: #### P TT #### [facility] [address] [place] [address] Platelets (Bld) [#/Vol] 315 10*3/uL Normal 130-400 [facility] Comment on above: Performed By: #### P TT #### [facility] [address] [place] [address] RBC (Bld) [#/Vol] 3.67 10*6/uL Low 4.20-5.40 [facility] Comment on above: Performed By: #### P TT #### [facility] [address] [place] [address] WBC (Bld) [#/Vol] 20.8 10*3/uL Critically high 4.8-10.8 [facility] Comment on above: Performed By: #### P TT #### [facility] [address] [place] [address] Comprehensive Metabolic Pane l reflex Mgon 11-15-2018 Albumin [Mass/Vol] 3.3 g/dL Low 3.5-4.6 [facility] Comment on above: Performed By: #### P TT #### [facility] [address] [place] [address] ALP [Catalytic activity/Vol] 71 U/L Normal 40-130 [facility] Comment on above: Performed By: #### P TT #### [facility] [address] [place] [address] ALT [Catalytic activity/Vol] 12 U/L Normal 0-33 [facility] Comment on above: Performed By: #### P TT #### [facility] [address] [place] [address] Anion gap [Moles/Vol] 11 mmol/L Normal 9-15 [facility] Comment on above: Performed By: #### P TT #### [facility] [address] [place] [address] AST [Catalytic activity/Vol] 28 U/L Normal 0-35 [facility] Comment on above: Performed By: #### P TT #### [facility] [address] [place] [address] Bilirubin [Mass/Vol] 0.4 mg/dL Normal 0.2-0.7 [facility] Comment on above: Performed By: #### P TT #### [facility] [address] [place] [address] Calcium [Mass/Vol] 9.1 mg/dL Normal 8.5-9.9 [facility] Comment on above: Performed By: #### P TT #### [facility] [address] [place] [address] Chloride [Moles/Vol] 98 mmol/L Normal 95-107 [facility] Comment on above: Performed By: #### P TT #### [facility] [address] [place] [address] CO2 [Moles/Vol] 27 mmol/L Normal 20-31 [facility] Comment on above: Performed By: #### P TT #### [facility] [address] [place] [address] Creatinine [Mass/Vol] 0.59 mg/dL Normal 0.50-0.90 [facility] Comment on above: Performed By: #### P TT #### [facility] [address] [place] [address] GFR/1.73 sq M predicted among blacks MDRD (S/P/Bld) [Vol rate/Area] mL/min/{1.73_m2} Normal >60 [facility] Comment on above: Result Comment: >60 mL/min/1.73m2 EGFR, calc. for ages 18 and older using the MDRD formula (not corrected for weight), is valid for stable renal function. Performed By: #### P TT #### [facility] [address] [place] [address] GFR/1.73 sq M.predicted MDRD (S/P/Bld) [Vol rate/Area] mL/min/{1.73_m2} Normal >60 [facility] Comment on above: Result Comment: >60 mL/min/1.73m2 EGFR, calc. for ages 18 and older using the MDRD formula (not corrected for weight), is valid for stable renal function. Performed By: #### P TT #### [facility] [address] [place] [address] Globulin (S) [Mass/Vol] 3.2 g/dL Normal 2.3-3.5 [facility] Comment on above: Performed By: #### P TT #### [facility] [address] [place] [address] Glucose [Mass/Vol] 123 mg/dL Critically high 70-99 [facility] Comment on above: Performed By: #### P TT #### [facility] [address] [place] [address] Potassium reflex Mg 3.8 mEq/L Normal 3.4-4.9 [facility] Comment on above: Performed By: #### P TT #### [facility] [address] [place] [address] Protein [Mass/Vol] 6.5 g/dL Normal 6.3-8.0 [facility] Comment on above: Performed By: #### P TT #### [facility] [address] [place] [address] Sodium [Moles/Vol] 136 mmol/L Normal 135-144 [facility] Comment on above: Performed By: #### P TT #### [facility] [address] [place] [address] Urea nitrogen [Mass/Vol] 6 mg/dL Low 8-23 [facility] Comment on above: Performed By: #### P TT #### [facility] [address] [place] [address] Culture, Blood 2on 9 Culture, Blood 2 ORDERED BY: ADDY COKER SOURCE: Blood COLLECTED: 11/15/18 16:37 ANTIBIOTICS AT DI.: RECEIVED : 11/15/18 16:42 Culture, Blood 2 FINAL 11/20/18 18:15 No growth after 5 days of incubation. Normal [facility] Comment on above: Performed By: #### C MP #### [facility] [address] [place] [address] Culture, Urineon 11-15-2018 Culture, Urine ORDERED BY: ADDY COKER SOURCE: Urine Clean Catch COLLECTED: 11/15/18 19:05 ANTIBIOTICS AT DI.: RECEIVED : 11/15/18 19:05 Culture, Urine FINAL 11/17/18 07:28 No growth 24 hours Normal [facility] Comment on above: Performed By: #### C MP #### [facility] [address] [place] [address] URINE RT REFLEX TO CULTUREon 11-15-2018 Bilirubin Urine Negative Negative [facility] [place] Blood, Urine TRACE Abnormal Negative [facility] [place], [place] Clarity, UA Clear Clear [facility] [place] Color, UA Yellow Straw/Yello w [facility] [place] Glucose, Ur Negative Negative mg/dL [facility], [place] Interpretation and review of laboratory results Abnormal [place] Ketones Ql (U) Negative Negative mg/dL [place] Leukocyte esterase Test strip Ql (U) Negative Negative [place] Nitrite, Urine Negative Negative [place] pH, UA 7.0 [place] Protein (U) [Mass/Vol] 30 mg/dL Abnormal Negative Me [place], [place] Specific [place], UA 1.014 [place] Urine Reflex to Culture YES [place] Urobilinogen, Urine 0.2 <2.0 E.U./dL [place] CAROTID ARTERY BILATERALo n 11-15-2018 [...] MD 11/16/18 Final result Normal [facility] Urinalysis, reflex to cultur kendall 11-15-2018 Bilirubin Ql (U) Negative Normal Negative [facility] Comment on above: Performed By: #### P TT #### [facility] [address] [place] [address] Clarity (U) Clear Normal Clear [facility] Comment on above: Performed By: #### P TT #### [facility] [address] [place] [address] Color (U) Yellow Normal [facility] Comment on above: Performed By: #### P TT #### [facility] [address] [place] [address] Glucose Ql (U) Negative Normal Negative [facility] Comment on above: Performed By: #### P TT #### [facility] [address] [place] [address] Hemoglobin Ql (U) TRACE Abnormal Negative [facility] Comment on above: Performed By: #### P TT #### [facility] [address] [place] [address] Ketones Ql (U) Negative Normal Negative [facility] Comment on above: Performed By: #### P TT #### [facility] [address] [place] [address] Leukocyte esterase Test strip Ql (U) Negative Normal Negative [facility] Comment on above: Performed By: #### P TT #### [facility] [address] [place] [address] Nitrite Ql (U) Negative Normal Negative [facility] Comment on above: Performed By: #### P TT #### [facility] [address] [place] [address] pH (U) 7.0 [pH] Normal 5.0-9.0 [facility] Comment on above: Performed By: #### P TT #### [facility] [address] [place] [address] Protein Ql (U) 30 mg/dL Abnormal Negative [facility] Comment on above: Performed By: #### P TT #### [facility] [address] [place] [address] Specific gravity (U) [Rel density] 1.014 Normal 1.005-1.03 [facility] Comment on above: Performed By: #### P TT #### [facility] [address] [place] [address] Urine Reflexed to Culture YES Normal [facility] Comment on above: Performed By: #### P TT #### [facility] [address] [place] [address] Urobilinogen Qn (U) 0.2 {Juan'U}/dL Normal < 2.0 [facility] Comment on above: Performed By: #### P TT #### [facility] [address] [place] [address] XR CHEST PORTABLEon 11-16-19 XR CHEST PORTABLE EXAMINATION: XR CHES T [...] MD 11/16/18 Final result Normal [facility] Basic Metabolic Panel Reflex Mgon 11-14-2018 Anion gap [Moles/Vol] 10 mmol/L Normal 9-15 [facility] Comment on above: Performed By: #### P T #### [facility] [address] [place] [address] Calcium [Mass/Vol] 8.4 mg/dL Low 8.5-9.9 [facility] Comment on above: Performed By: #### P T #### [facility] [address] [place] [address] Chloride [Moles/Vol] 100 mmol/L Normal 95-107 [facility] Comment on above: Performed By: #### P T #### [facility] [address] [place] [address] CO2 [Moles/Vol] 25 mmol/L Normal 20-31 [facility] Comment on above: Performed By: #### P T #### [facility] [address] [place] [address] Creatinine [Mass/Vol] 0.66 mg/dL Normal 0.50-0.90 [facility] Comment on above: Performed By: #### P T #### [facility] [address] [place] [address] GFR/1.73 sq M predicted among blacks MDRD (S/P/Bld) [Vol rate/Area] mL/min/{1.73_m2} Normal >60 [facility] Comment on above: Result Comment: >60 mL/min/1.73m2 EGFR, calc. for ages 18 and older using the MDRD formula (not corrected for weight), is valid for stable renal function. Performed By: #### P T #### [facility] [address] [place] [address] GFR/1.73 sq M.predicted MDRD (S/P/Bld) [Vol rate/Area] mL/min/{1.73_m2} Normal >60 [facility] Comment on above: Result Comment: >60 mL/min/1.73m2 EGFR, calc. for ages 18 and older using the MDRD formula (not corrected for weight), is valid for stable renal function. Performed By: #### P T #### [facility] [address] [place] [address] Glucose [Mass/Vol] 144 mg/dL Critically high 70-99 [facility] Comment on above: Performed By: #### P T #### [facility] [address] [place] [address] Potassium reflex Mg 4.1 mEq/L Normal 3.4-4.9 [facility] Comment on above: Performed By: #### P T #### [facility] [address] [place] [address] Sodium [Moles/Vol] 135 mmol/L Normal 135-144 [facility] Comment on above: Performed By: #### P T #### [facility] [address] [place] [address] Urea nitrogen [Mass/Vol] 6 mg/dL Low 8-23 [facility] Comment on above: Performed By: #### P T #### [facility] [address] [place] [address] CBC With Platelet and Differ entialon 11-14-2018 Basophils (Bld) [#/Vol] 0.1 10*3/uL Normal 0.0-0.2 [facility] Comment on above: Performed By: #### P T #### [facility] [address] [place] [address] Basophils/100 WBC (Bld) 0.5 % Normal [facility] Comment on above: Performed By: #### P T #### [facility] [address] [place] [address] Eosinophils (Bld) [#/Vol] 0.1 10*3/uL Normal 0.0-0.7 [facility] Comment on above: Performed By: #### P T #### [facility] [address] [place] [address] Eosinophils/100 WBC (Bld) 0.8 % Normal [facility] Comment on above: Performed By: #### P T #### [facility] [address] [place] [address] Erythrocyte distribution width (RBC) [Ratio] 14.1 % Normal 11.5-14.5 [facility] Comment on above: Performed By: #### P T #### [facility] [address] [place] [address] Hematocrit (Bld) [Volume fraction] 35.4 % Low 37.0-47.0 [facility] Comment on above: Performed By: #### P T #### [facility] [address] [place] [address] Hemoglobin (Bld) [Mass/Vol] 11.7 g/dL Low 12.0-16.0 [facility] Comment on above: Performed By: #### P T #### [facility] [address] [place] [address] Lymphocytes (Bld) [#/Vol] 2.7 10*3/uL Normal 1.0-4.8 [facility] Comment on above: Performed By: #### P T #### [facility] [address] [place] [address] Lymphocytes/100 WBC (Bld) 15.7 % Normal [facility] Comment on above: Performed By: #### P T #### [facility] [address] [place] [address] MCH (RBC) [Entitic mass] 29.7 pg Normal 27.0-31.3 [facility] Comment on above: Performed By: #### P T #### [facility] [address] [place] [address] MCHC (RBC) [Mass/Vol] 33.1 % Normal 33.0-37.0 [facility] Comment on above: Performed By: #### P T #### [facility] [address] [place] [address] MCV (RBC) [Entitic vol] 89.6 fL Normal 82.0-100.0 [facility] Comment on above: Performed By: #### P T #### [facility] [address] [place] [address] Monocytes (Bld) [#/Vol] 1.4 10*3/uL Critically high 0.2-0. 8 [facility] Comment on above: Performed By: #### P T #### [facility] [address] [place] [address] Monocytes/100 WBC (Bld) 7.9 % Normal [facility] Comment on above: Performed By: #### P T #### [facility] [address] [place] [address] Neutrophils (Bld) [#/Vol] 12.8 10*3/uL Critically high 1.4-6.5 [facility] Comment on above: Performed By: #### P T #### [facility] [address] [place] [address] Neutrophils/100 WBC (Bld) 75.1 % Normal [facility] Comment on above: Performed By: #### P T #### [facility] [address] [place] [address] Platelets (Bld) [#/Vol] 345 10*3/uL Normal 130-400 [facility] Comment on above: Performed By: #### P T #### [facility] [address] [place] [address] RBC (Bld) [#/Vol] 3.95 10*6/uL Low 4.20-5.40 [facility] Comment on above: Performed By: #### P T #### [facility] [address] [place] [address] WBC (Bld) [#/Vol] 17.0 10*3/uL Critically high 4.8-10.8 [facility] Comment on above: Performed By: #### P T #### [facility] [address] [place] [address] POCT Glucoseon 11-14-2018 Glucose [Mass/Vol] 116 mg/dL Critically high 60-115 [facility] Comment on above: Performed By: #### P T #### [facility] [address] [place] [address] POC Performed on ACCU-CHEK Normal [facility] Comment on above: Performed By: #### P T #### [facility] [address] [place] [address] XR LUMBAR SPINE (2-3 VIEWS)o n 11-14-2018 [...] MD 11/14/18 Final result Normal [facility] Basic Metabolic Panel Reflex Mgon 11-13-2018 Anion gap [Moles/Vol] 13 mmol/L Normal 9-15 [facility] Comment on above: Performed By: #### P T #### [facility] [address] [place] [address] Calcium [Mass/Vol] 9.0 mg/dL Normal 8.5-9.9 [facility] Comment on above: Performed By: #### P T #### [facility] [address] [place] [address] Chloride [Moles/Vol] 101 mmol/L Normal 95-107 [facility] Comment on above: Performed By: #### P T #### [facility] [address] [place] [address] CO2 [Moles/Vol] 24 mmol/L Normal 20-31 [facility] Comment on above: Performed By: #### P T #### [facility] [address] [place] [address] Creatinine [Mass/Vol] 0.62 mg/dL Normal 0.50-0.90 [facility] Comment on above: Performed By: #### P T #### [facility] [address] [place] [address] GFR/1.73 sq M predicted among blacks MDRD (S/P/Bld) [Vol rate/Area] mL/min/{1.73_m2} Normal >60 [facility] Comment on above: Result Comment: >60 mL/min/1.73m2 EGFR, calc. for ages 18 and older using the MDRD formula (not corrected for weight), is valid for stable renal function. Performed By: #### P T #### [facility] [address] [place] [address] GFR/1.73 sq M.predicted MDRD (S/P/Bld) [Vol rate/Area] mL/min/{1.73_m2} Normal >60 [facility] Comment on above: Result Comment: >60 mL/min/1.73m2 EGFR, calc. for ages 18 and older using the MDRD formula (not corrected for weight), is valid for stable renal function. Performed By: #### P T #### [facility] [address] [place] [address] Glucose [Mass/Vol] 136 mg/dL Critically high 70-99 [facility] Comment on above: Performed By: #### P T #### [facility] [address] [place] [place] [address] Potassium reflex Mg 3.6 mEq/L Normal 3.4-4.9 [facility] Comment on above: Performed By: #### P T #### [facility] [address] [place] [address] Sodium [Moles/Vol] 138 mmol/L Normal 135-144 [facility] Comment on above: Performed By: #### P T #### [facility] [address] [place] [address] Urea nitrogen [Mass/Vol] 7 mg/dL Low 8-23 [facility] Comment on above: Performed By: #### P T #### [facility] [address] [place] [address] CBC With Platelet No Differe ntialon 11-13-2018 Erythrocyte distribution width (RBC) [Ratio] 14.2 % Normal 11.5-14.5 [facility] Comment on above: Performed By: #### P T #### [facility] [address] [place] [address] Hematocrit (Bld) [Volume fraction] 40.3 % Normal 37.0-47.0 [facility] Comment on above: Performed By: #### P T #### [facility] [address] [place] [address] Hemoglobin (Bld) [Mass/Vol] 13.1 g/dL Normal 12.0-16.0 [facility] Comment on above: Performed By: #### P T #### [facility] [address] [place] [address] MCH (RBC) [Entitic mass] 29.1 pg Normal 27.0-31.3 [facility] Comment on above: Performed By: #### P T #### [facility] [address] [place] [address] MCHC (RBC) [Mass/Vol] 32.4 % Low 33.0-37.0 [facility] Comment on above: Performed By: #### P T #### [facility] [address] [place] [address] MCV (RBC) [Entitic vol] 89.9 fL Normal 82.0-100.0 [facility] Comment on above: Performed By: #### P T #### [facility] [address] [place] [address] Platelets (Bld) [#/Vol] 394 10*3/uL Normal 130-400 [facility] Comment on above: Performed By: #### P T #### [facility] [address] [place] [address] RBC (Bld) [#/Vol] 4.48 10*6/uL Normal 4.20-5.40 [facility] Comment on above: Performed By: #### P T #### [facility] [address] [place] [address] WBC (Bld) [#/Vol] 11.8 10*3/uL Critically high 4.8-10.8 [facility] Comment on above: Performed By: #### P T #### [facility] [address] [place] [address] Culture, MRSA Screenon 11-13 Culture, MRSA Screen ORDERED BY: BRENNAN HERRON SOURCE: Nares COLLECTED: 11/13/18 09:29 ANTIBIOTICS AT DI.: RECEIVED : 11/13/18 09:29 Culture, MRSA Screen FINAL 11/14/18 08:02 No MRSA isolated Normal [facility] Comment on above: Performed By: #### P T #### [facility] [address] [place] [address] FLUORO FOR SURGICAL PROCEDUR ESon 11-13-2018 FLUORO [...] MD 11/13/18 Final result Normal [facility] Surgical Specimenon 11-14-19 Surgical Specimen [facility] [address] [place], [place] [id number] FINAL SURGICAL PATHOLOGY REPORT Patient Name: HIRAM MADRID Accession No: [id number] Age Sex: 1935 Location: [facility] [id number] Account No: [id number] Collected: 11/13/2018 Med Rec No: [id number] Received: 11/14/2018 Attend Phys: LENNY CORRAL Completed: [...] two cassettes after brief decalcification. UVALDO/NIKKY CPT: 67774 X1 31335 X1 STANLEY GRAFF M.D. 11/15/2018 Electronically signed out by Page 1 of 1 [facility] Comment on above: Performed By: #### P TT #### [place] [id number] Type and Screen Capture 3 sc rn cellon 11-13-2018 Type and Screen Capture 3 scrn cell PATIENT: MERCY GANDHI LOC: LCOPS,ORPOOL,NON BILL# : [id number] : 1935 SEX: F ORDERED BY: GOPAL AMIN ORDERED : 11/13/2018 08:10 COLLECTED: 11/13/2018 09:24 ORDER : [id number] RECEIVED : 11/13/2018 09:24 TEST NAME RESULT UNITS RANGES ABN FL ST ABORH Capture A POS F Antibody 3 Cell Scrn Captu NEG F Normal [facility] Comment on above: Performed By: #### T S3C #### [facility] [address] [place] [place] [address] XR SPINE ENTIRE (2-3 VIEWS)o n 11-13-2018 [...] MD 11/13/18 Final result Normal [facility] MRI LUMBAR SPINE W WO CONTRA STon [...] SIGNS OF UNDERLYING PATHOLOGY OR RECENT INJURY. [facility]- [place], [place] Joseph, Chpo Incoming Radiant Results From [email or web address] - 11/05/2018 3:07 PM EDT EXAMINATION: MRI [...] PATHOLOGY OR RECENT INJURY. [facility], [place] MRI LUMBAR SPINE W WO CONTRAST EXAMINATION: [...] MD 11/05/18 Final result Normal [facility] Otheron 11-05-2018 Joseph, po Incoming Radiant Results From [employer] - 11/05/2018 1:21 PM EDT EXAMINATION: XR [...] AND POSTOPERATIVE FINDINGS, WITHOUT ACUTE SUPERIMPOSED ABNORMALITY. [facility], [place] EXAMINATION: XR LUMB AR SPINE (MIN [...] AND POSTOPERATIVE FINDINGS, WITHOUT ACUTE SUPERIMPOSED ABNORMALITY. [place] XR CHEST (2 VW)on 11-05-2018 XR [...] MD 11/05/18 Final result Normal [facility] XR LUMBAR SPINE (MIN 4 VIEWS )on [...] MD 11/05/18 Final result Normal [facility] APTTon 11-04-2018 aPTT Coag (Bld) [Time] 27.9 s [place], [place] Comment on above: Effective 09/06/2018: Please note methodology and/or reference ranges have changed. aPTT - Heparin Therapeutic Range: 74.0 - 106 seconds C-Reactive Proteinon 019 CRP [Mass/Vol] 1.3 mg/L Normal 0.0-5.0 [facility] Comment on above: Performed By: #### C RP #### [facility] [address] [place] [address] CRP [Mass/Vol] 1.3 mg/L 0 - 5 mg/L [place], [place] CBC Auto Differentialon 10-21 Basophils (Bld) [#/Vol] 0.1 10*3/uL 0 - 0.2 K/uL [place] Basophils/100 WBC (Bld) 1.1 % [place], [place] Eosinophils (Bld) [#/Vol] 0.2 10*3/uL 0 - 0.7 K/uL [place] Eosinophils/100 WBC (Bld) 1.3 % [place] Erythrocyte distribution width (RBC) [Ratio] 13.9 % 11.5 - 14.5 % [place] Hematocrit (Bld) [Volume fraction] 41.3 % 37 - 47 % [place] Hemoglobin (Bld) [Mass/Vol] 14.3 g/dL 12 - 16 g/dL [place] Interpretation and review of laboratory results Abnormal [place] Lymphocytes (Bld) [#/Vol] 3.5 10*3/uL 1 - 4.8 K/uL [place] Lymphocytes/100 WBC (Bld) 28.2 % [place] MCH (RBC) [Entitic mass] 30.5 pg 27 - 31.3 pg [place] MCHC (RBC) [Mass/Vol] 34.6 % 33 - 37 % [place], [place] MCV (RBC) [Entitic vol] 88.0 fL 82 - 100 fL [place] Monocytes (Bld) [#/Vol] 0.8 10*3/uL 0.2 - 0.8 K/uL [place] Monocytes/100 WBC (Bld) 6.8 % [place] Neutrophils Absolute 7.7 K/uL High 1.4 - 6 .5 K/uL [place] Neutrophils/100 WBC (Bld) 62.6 % [place] Platelets (Bld) [#/Vol] 435 10*3/uL High 130 - 400 K/uL [place] RBC (Bld) [#/Vol] 4.69 10*6/uL [place] WBC (Bld) [#/Vol] 12.4 10*3/uL High 4.8 - 10.8 K/uL [place] CBC With Platelet and Differ entialon 11-04-2018 Basophils (Bld) [#/Vol] 0.1 10*3/uL Normal 0.0-0.2 [facility] Comment on above: Performed By: #### C BCWD #### [facility] [address] [place] [address] Basophils/100 WBC (Bld) 1.1 % Normal [facility] Comment on above: Performed By: #### C BCWD #### [facility] [address] [place] [address] Eosinophils (Bld) [#/Vol] 0.2 10*3/uL Normal 0.0-0.7 [facility] Comment on above: Performed By: #### C BCWD #### [facility] [address] [place] [address] Eosinophils/100 WBC (Bld) 1.3 % Normal [facility] Comment on above: Performed By: #### C BCWD #### [facility] [address] [place] [address] Erythrocyte distribution width (RBC) [Ratio] 13.9 % Normal 11.5-14.5 [facility] Comment on above: Performed By: #### C BCWD #### [facility] [address] [place] [address] Hematocrit (Bld) [Volume fraction] 41.3 % Normal 37.0-47.0 [facility] Comment on above: Performed By: #### C BCWD #### [facility] [address] [place] [address] Hemoglobin (Bld) [Mass/Vol] 14.3 g/dL Normal 12.0-16.0 [facility] Comment on above: Performed By: #### C BCWD #### [facility] [address] [place] [address] Lymphocytes (Bld) [#/Vol] 3.5 10*3/uL Normal 1.0-4.8 [facility] Comment on above: Performed By: #### C BCWD #### [facility] [address] [place] [address] Lymphocytes/100 WBC (Bld) 28.2 % Normal [facility] Comment on above: Performed By: #### C BCWD #### [facility] [address] [place] [address] MCH (RBC) [Entitic mass] 30.5 pg Normal 27.0-31.3 [facility] Comment on above: Performed By: #### C BCWD #### [facility] [address] [place] [address] MCHC (RBC) [Mass/Vol] 34.6 % Normal 33.0-37.0 [facility] Comment on above: Performed By: #### C BCWD #### [facility] [address] [place] [address] MCV (RBC) [Entitic vol] 88.0 fL Normal 82.0-100.0 [facility] Comment on above: Performed By: #### C BCWD #### [facility] [address] [place] [address] Monocytes (Bld) [#/Vol] 0.8 10*3/uL Normal 0.2-0.8 [facility] Comment on above: Performed By: #### C BCWD #### [facility] [address] [place] [address] Monocytes/100 WBC (Bld) 6.8 % Normal [facility] Comment on above: Performed By: #### C BCWD #### [facility] [address] [place] [address] Neutrophils (Bld) [#/Vol] 7.7 10*3/uL Critically high 1.4-6.5 [facility] Comment on above: Performed By: #### C BCWD #### [facility] [address] [place] [address] Neutrophils/100 WBC (Bld) 62.6 % Normal [facility] Comment on above: Performed By: #### C BCWD #### [facility] [address] [place] [address] Platelets (Bld) [#/Vol] 435 10*3/uL Critically high 130-40 0 [facility] Comment on above: Performed By: #### C BCWD #### [facility] [address] [place] [address] RBC (Bld) [#/Vol] 4.69 10*6/uL Normal 4.20-5.40 [facility] Comment on above: Performed By: #### C BCWD #### [facility] [address] [place] [address] WBC (Bld) [#/Vol] 12.4 10*3/uL Critically high 4.8-10.8 [facility] Comment on above: Performed By: #### C BCWD #### [facility] [address] [place] [address] Comprehensive Metabolic Pane bebeto 11-04-2018 Anion gap [Moles/Vol] 14 mmol/L Normal 9-15 [facility] Comment on above: Order Comment: CALL [facility] tel. [phone], Potassium results called to and read back by onofre Millan RN, 11/04/2018 16:24, by [employer] Performed By: #### C MP #### [facility] [address] [place] [address] Bilirubin [Mass/Vol] 0.4 mg/dL Normal 0.2-0.7 [facility] Comment on above: Order Comment: CALL [facility] tel. [phone], Potassium results called to and read back by onofre Millan RN, 11/04/2018 16:24, by [employer] Performed By: #### C MP #### [facility] [address] [place] [address] GFR/1.73 sq M predicted among blacks MDRD (S/P/Bld) [Vol rate/Area] mL/min/{1.73_m2} Normal >60 [facility] Comment on above: Order Comment: CALL [facility] tel. [phone], Potassium results called to and read back by onofre Millan RN, 11/04/2018 16:24, by [employer] Result Comment: >60 mL/min/1.73m2 EGFR, calc. for ages 18 and older using the MDRD formula (not corrected for weight), is valid for stable renal function. Performed By: #### C MP #### [facility] [address] [place] [address] GFR/1.73 sq M.predicted MDRD (S/P/Bld) [Vol rate/Area] mL/min/{1.73_m2} Normal >60 [facility] Comment on above: Order Comment[phone], Potassium results called to and read back by onofre Millan RN, 11/04/2018 16:24, by [employer] Result Comment: >60 mL/min/1.73m2 EGFR, calc. for ages 18 and older using the MDRD formula (not corrected for weight), is valid for stable renal function. Performed By: #### C MP #### [facility] [address] [place] [address] Albumin [Mass/Vol] 4.5 g/dL Normal 3.5-4.6 [facility], [place] Comment on above: Order Comment: CALL [facility] tel. [phone], Potassium results called to and read back by onofre Millan RN, 11/04/2018 16:24, by [employer] Performed By: #### C MP #### [facility] [address] [place] [address] ALP [Catalytic activity/Vol] 76 U/L Normal 40-130 [facility], [place] Comment on above: Order Comment: [facility] [phone], Potassium results called to and read back by onofre Millan RN, 11/04/2018 16:24, by [employer] Performed By: #### C MP #### [facility] [address] [place] [address] ALT [Catalytic activity/Vol] 15 U/L Normal 0-33 [facility], [place] Comment on above: Order Comment: [facility] [phone], Potassium results called to and read back by onofre Millan RN, 11/04/2018 16:24, by [employer] Performed By: #### C MP #### [facility] [address] [place] [address] AST [Catalytic activity/Vol] 20 U/L Normal 0-35 [facility], [place] Comment on above: Order Comment: [facility] [phone], Potassium results called to and read back by onofre Millan RN, 11/04/2018 16:24, by [employer] Performed By: #### C MP #### [facility] [address] [facility] [address] Calcium [Mass/Vol] 9.9 mg/dL Normal 8.5-9.9 [place] Comment on above: Order Comment: CALL [facility] tel. [phone], Potassium results called to and read back by onofre Millan RN, 11/04/2018 16:24, by [employer] Performed By: #### C MP #### [facility] [address] [facility] [address] Chloride [Moles/Vol] 96 mmol/L Normal 95-107 [place], [place] Comment on above: Order Comment: CALL [facility] tel. [phone], Potassium results called to and read back by onofre Millan RN, 11/04/2018 16:24, by [employer] Performed By: #### C MP #### [facility] [address] [facility] [address] CO2 [Moles/Vol] 24 mmol/L Normal 20-31 [place] Comment on above: Order Comment: CALL [facility] tel. [phone], Potassium results called to and read back by onofre Millan RN, 11/04/2018 16:24, by [employer] Performed By: #### C MP #### [facility] [address] [facility] [address] Creatinine [Mass/Vol] 0.67 mg/dL Normal 0.50-0.90 [place] Comment on above: Order Comment: CALL [facility] tel. [phone], Potassium results called to and read back by onofre Millan RN, 11/04/2018 16:24, by [employer] Performed By: #### C MP #### [facility] [address] [facility] [address] Globulin (S) [Mass/Vol] 2.8 g/dL Normal 2.3-3.5 [place] Comment on above: Order Comment: CALL [facility] tel. [phone], Potassium results called to and read back by onofre Millan RN, 11/04/2018 16:24, by [employer] Performed By: #### C MP #### [facility] [address] [place] [address] Glucose [Mass/Vol] 109 mg/dL Critically high 70-99 [place], [place] Comment on above: Order Comment: CALL [facility] tel. [phone], Potassium results called to and read back by onofre Millan RN, 11/04/2018 16:24, by [employer] Performed By: #### C MP #### [facility] [address] [place] [address] Potassium [Moles/Vol] 3.0 mmol/L Critically low 3.4-4.9 [place] Comment on above: Order Comment: CALL [facility] tel. [phone], Potassium results called to and read back by onofre Millan RN, 11/04/2018 16:24, by [employer] Performed By: #### C MP #### [facility] [address] [place] [address] Protein [Mass/Vol] 7.3 g/dL Normal 6.3-8.0 [place] Comment on above: Order Comment: CALL [facility] tel. [phone], Potassium results called to and read back by onofre Millan RN, 11/04/2018 16:24, by [employer] Performed By: #### C MP #### [facility] [address] [place] [address] Sodium [Moles/Vol] 134 mmol/L Low 135-144 [place] Comment on above: Order Comment: CALL [facility] tel. [phone], Potassium results called to and read back by onofre Millan RN, 11/04/2018 16:24, by [employer] Performed By: #### C MP #### [facility] [address] [facility] [address] Urea nitrogen [Mass/Vol] 8 mg/dL Normal 8-23 [place] Comment on above: Order Comment: CALL [facility] tel. [phone], Potassium results called to and read back by onofre Millan RN, 11/04/2018 16:24, by TAMMY Performed By: #### C MP #### [facility] [address] [facility] [address] Anion gap [Moles/Vol] 14 mmol/L [place] Bilirubin Ql (U) 0.4 mg/dL 0.2 - 0.7 mg/dL [place] GFR >60.0 >60 [place] Comment on above: >60 mL/min/1.73m2 EG FR, calc. for ages 18 and older using the MDRD formula (not corrected for weight), is valid for stable renal function. GFR Non- >60.0 >60 [place] Comment on above: >60 mL/min/1.73m2 EG FR, calc. for ages 18 and older using the MDRD formula (not corrected for weight), is valid for stable renal function. Interpretation and review of laboratory results Abnormal [place] Potassium [Moles/Vol] CALL [facility] tel . [phone], Potassium results called to and read back by onofre Millan RN, 11/04/2018 16:24, by [employer] [place] Partial Thromboplastin Timeo n 11-04-2018 aPTT Coag (Bld) [Time] 27.9 s Normal 24.4-36.8 [facility] Comment on above: Result Comment: Effe ctive 09/06/2018: Please note methodology and/or reference ranges have changed. aPTT - Heparin Therapeutic Range: 74.0 - 106 seconds Performed By: #### P TT #### [facility] [address] [facility] [address] Prothrombin Timeon 9 INR Coag (PPP) [Relative time] 0.9 {INR} Normal [facility] Comment on above: Result Comment: Warf camden Therapy INR Therapeutic: 2.0-3.0 With Mechanical Valve: >2.5 Low-intensity Therapeutic Range: 1.5-2.0 Mod-intensity Therapeutic Range: 2.0-3.0 High-intensity Therapeutic Range: 2.5-3.5 HIgh-intensity Therapeutic Range: 3.0-4.0 Common Critical/Alarm Value: 5.0 Common Upper Limit Reported: 10.0 Effective 08/30/2018: Please note methodology and/or reference ranges have changed. Performed By: #### P T #### [facility] [address] [place] [address] PT Coag (PPP) [Time] 12.1 s Low 12.3-14.9 [facility] Comment on above: Result Comment: Effe ctive 08/30/18 Please note methodology and/or reference ranges have changed. Performed By: #### P T #### [facility] [address] [place] [address] Protime-INRon 11-04-2018 INR Coag (PPP) [Relative time] 0.9 {INR} [place] Comment on above: Warfarin Therapy INR Therapeutic: 2.0-3.0 With Mechanical Valve: >2.5 Low-intensity Therapeutic Range: 1.5-2.0 Mod-intensity Therapeutic Range: 2.0-3.0 High-intensity Therapeutic Range: 2.5-3.5 HIgh-intensity Therapeutic Range: 3.0-4.0 Common Critical/Alarm Value: 5.0 Common Upper Limit Reported: 10.0 Effective 08/30/2018: Please note methodology and/or reference ranges have changed. Interpretation and review of laboratory results Abnormal [place] PT Coag (PPP) [Time] 12.1 s Low [place], [place] Comment on above: Effective 08/30/18 Please note methodology and/or reference ranges have changed. Sedimentation Rateon 019 Sedimentation Rate 12 mm Normal 0-30 [facility] Comment on above: Performed By: #### E SR #### [facility] [address] [place] [address] Sed Rate 12 mm 0 - 30 mm [facility], [place] Vital Signs Date Time Vital Sign Value Performing Clinician Ivonne ledesma 05-03-2023 14:21-0400 Blood Pressure Location Turner MONTIELL [facility] [place] 05-03-2023 14:21-0400 Diastolic blood pressure 82 mm[Hg] Turner MONTIE[facility] [place] 05-03-2023 14:21-0400 Heart rate 76 /min Turner MONTIELL [facility] [place] 05-03-2023 14:21-0400 Respiratory rate 16 /min Turner MONTIELL [facility] [place] 05-03-2023 14:21-0400 Systolic blood pressure 156 mm[Hg] Turner MONTIELL [facility] [place] 04-15-2023 13:38-0500 Diastolic blood pressure 70 mm[Hg] MD Addy Daniels Work Phone: [facility] 04-15-2023 13:38-0500 Heart rate 76 /min MD Addy Daniels Work Phone: [facility] 04-15-2023 13:38-0500 Respiratory rate 18 /min MD Addy Daniels Work Phone: [facility] 04-15-2023 13:38-0500 SaO2% (BldA) [Mass fraction] 97 % MD Addy Daniels Work Phone: [facility] 04-15-2023 13:38-0500 Systolic blood pressure 160 mm[Hg] MD Addy Daniels Work Phone: [facility] 04-15-2023 12:07-0500 Body height 154.94 cm MD Addy Daniels Work Phone: [facility] System 04-15-2023 12:07-0500 Body temperature 97.8 [degF] MD Addy Daniels Work Phone: [facility] 04-15-2023 12:07-0500 Body weight 60.5 kg MD Addy Daniels Work Phone: [facility] 04-06-2023 11:51-0500 Body temperature 97.9 [degF] MD Addy Daniels Work Phone: [facility] 04-06-2023 11:51-0500 Diastolic blood pressure 76 mm[Hg] MD Addy Daniels Work Phone: [facility] 04-06-2023 11:51-0500 Heart rate 84 /min MD Addy Daniels Work Phone: [facility] 04-06-2023 11:51-0500 Respiratory rate 18 /min MD Addy aDniels Work Phone: [facility] 04-06-2023 11:51-0500 SaO2% (BldA) [Mass fraction] 97 % MD Addy Daniels Work Phone: [facility] 04-06-2023 11:51-0500 Systolic blood pressure 146 mm[Hg] MD Addy Daniels Work Phone: [facility] 04-06-2023 06:00-0500 Body weight 58.6 kg MD Addy Daniels Work Phone: [facility] 04-04-2023 13:15-0500 Body height 154.94 cm MD Addy Daniels Work Phone: [facility] 12-22-2022 11:40-0400 Blood Pressure Location MIKAYLA WEISS [facility] 12-22-2022 11:40-0400 Diastolic blood pressure 84 mm[Hg] MIKAYLA EWISS [facility] 12-22-2022 11:40-0400 Systolic blood pressure 124 mm[Hg] MIKAYLA WEISS [facility] 08-06-2022 00:10-0400 Body temperature 97.3 [degF] MD Addy Daniels Work Phone: [facility] 08-06-2022 00:10-0400 Diastolic blood pressure 74 mm[Hg] MD Addy Daniels Work Phone: [facility] 08-06-2022 00:10-0400 Heart rate 80 /min MD Addy Daniels Work Phone: [facility] 08-06-2022 00:10-0400 Respiratory rate 18 /min MD Addy Daniels Work Phone: [facility] 08-06-2022 00:10-0400 SaO2% (BldA) [Mass fraction] 96 % MD Addy Daniels Work Phone: [facility] 08-06-2022 00:10-0400 Systolic blood pressure 177 mm[Hg] MD Addy Daniels Work Phone: [facility] 08-05-2022 19:51-0400 Body height 154.94 cm MD Addy Daniels Work Phone: [facility] 08-05-2022 19:51-0400 Body weight 67.6 kg MD Addy Daniels Work Phone: [facility] 11-20-2018 07:02-0400 Body Temperature 97 [degF] [facility] [place] 11-20-2018 07:02-0400 BP Diastolic 61 mm[Hg] Mary [facility]oker[facility] 11-20-2018 07:02-0400 BP Systolic 153 mm[Hg] [facility] 11-20-2018 07:02-0400 Pulse (Heart Rate) 75 /min Mary HubbardSantana [facility] 11-20-2018 07:02-0400 Pulse Oximetry 97 % Mary Hubbard[facility]antana [facility] 11-20-2018 07:02-0400 Respiratory Rate 17 /min Mary Vega [facility] 11-17-2018 05:54-0400 BMI (Body Mass Index) 27.62 kg/m2 Mary Vega [facility] 11-17-2018 05:54-0400 Body weight 66.3 kg Mary Vega [facility] 11-15-2018 15:58-0400 Height 154.9 cm Mary Vega [facility] 11-05-2018 07:30-0400 BP Diastolic 57 mm[Hg] [facility] , [place] 11-05-2018 07:30-0400 BP Systolic 135 mm[Hg] [facility] [place] 11-05-2018 07:30-0400 Pulse (Heart Rate) 70 /min [facility] 11-05-2018 07:30-0400 Pulse Oximetry 97 % [facility] , [place] 11-04-2018 20:06-0400 Body Temperature 98.4 [degF] [facility], [place] 11-04-2018 20:06-0400 Respiratory Rate 16 /min [facility] 11-04-2018 14:56-0400 BMI (Body Mass Index) 27.4 kg/m2 [facility] 11-04-2018 14:56-0400 Body weight 65.77 kg [facility] , [place] 11-04-2018 14:56-0400 Height 154.9 cm [place], [place] Encounters Encounter Date Encounter Type Care Provider Facility Start: 05-03-2023 End: 05-04-2023 ambulatory Turner DOSS Facility:[facility] Start: 05-03-2023 End: 05-03-2023 Patient encounter procedure Turner DOSS General Surgery Romario/Taryn Avilez Start: 04-15-2023 End: 04-15-2023 Emergency department patient visit Turner Nielsen Facility:[facility] Start: 04-15-2023 End: 04-15-2023 Emergency department patient visit MD Addy Daniels Work Phone: [facility] Work Phone: Start: 04-13-2023 ambulatory Raymond HARRISON Facility :[facility] Start: 04-03-2023 Non-patient / Non-visit MD Aime Daniels Work Phone: [facility] Physician [facility] Nephrology Work Phone: Start: 04-02-2023 End: 04-06-2023 Evaluation and management of inpatient Addy Daniels Facility:[facility] Start: 04-02-2023 Non-patient / Non-visit MD Aime Daniels Work Phone: [facility] Physician [facility] Med OutPt Work Phone: Start: 04-02-2023 End: 04-06-2023 Evaluation and management of inpatient MD Addy Daniels Work Phone: [facility] Work Phone: Start: 01-11-2023 End: 01-11-2023 ambulatory [facility] Start: 12-22-2022 End: 12-23-2022 ambulatory MIKAYLA WEISS Facility:ERIN Hoang Start: 12-22-2022 End: 12-22-2022 Patient encounter procedure MIKAYLA WEISS [facility] Natalya Start: 10-14-2022 End: [facility] Start: 09-06-2022 End: 09-07-2022 ambulatory Raymond HARRISON Facility:[facility] Natal[facility] Start: 08-11-2022 End: 08-12-2022 ambulatory Raymond HARRISON Facility:[id number] Start: 08-10-2022 End: 08-11-2022 ambulatory Raymond R CHRISTY Facility:[facility] Start: 08-09-2022 End: 08-09-2022 ambulatory Raymond Harrison Facility:[facility] Start: 08-09-2022 ambulatory Raymond HARRISON Facility :[facility] Start: 08-05-2022 End: 08-06-2022 Emergency department patient visit Addy Daniels Facility:[facility] Start: 08-05-2022 End: 08-06-2022 Emergency department patient visit MD Addy Daniels Work Phone: [facility] Work Phone: Start: 06-13-2022 End: 06-14-[address] ADDY DANIELS . Facility:[facility] Start: 05-19-[address] ADDY DANIELS . Facili ty:[facility] Start: 04-18-2022 End: 04-19-[address] VALERIE DARDEN Facility:[facility] Start: 04-04-2022 End: 04-04-2022 [facility] Start: 01-30-[address] ADDY DANIELS . Facili ty:[facility] Start: 01-04-2022 End: 01-05-[address] ADDY DANIELS . Facility:[facility] Start: 12-26-2021 End: 12-29-2021 Evaluation and management of inpatient DR ADDY DANIELS . Facility:[facility] Start: 12-02-2021 End: 01-04-2022 Pre-admission assessment Alie Santos [facility] Start: 11-30-2021 End: 12-01-[address] JESUS BRUNO Facility:[facility] Start: 11-09-2021 End: 11-10-[address] CALISTA ACEVES Facility:[facility] Start: 08-06-2021 End: 08-07-[address] VALERIE DARDEN Facility:[facility] Start: 07-28-2021 End: 07-29-[address] CALISTA ACEVES Facility:[facility] Start: 06-22-2021 End: 06-22-2021 Patient encounter procedure VALERIE DARDEN [facility] Start: 11-15-2018 End: 11-20-2018 Evaluation and management of inpatient MARY VEGA [facility] Start: 11-15-2018 End: 11-20-2018 Evaluation and management of inpatient Mary Vega Work Phone: [facility] Comment on above: Spinal stenosis of l umbosacral region (Primary Dx); Impaired mobility; Vasovagal syncope Start: 11-13-2018 End: 11-15-2018 Evaluation and management of inpatient LENNY CORRAL [facility] Start: 11-13-2018 End: 11-15-2018 Patient encounter procedure LENNY CORRAL [facility] Start: 11-04-2018 End: 11-05-2018 Patient encounter procedure CALISTA KETAN [facility] Start: 11-04-2018 End: 11-05-2018 Emergency department patient visit Lenny Corral Work Phone: [facility] Comment on above: Lumbar [...] Blood count complete auto&auto difrntl wbc Lenny HYou aMdseno Work Phone: Start: 11-19-2018 C-reactive protein h igh sensitivity Mary Sangeeta Work Phone: Start: 11-19-2018 Sedimentation rate r [...] Phone: Start: 11-18-2018 Assay of magnesium CHRIS SHERWOOD ACEVES Start: 11-18-2018 Assay of thyroid sti [...] difrntl wbc Mary ShahThalia Work Phone: Start: 11-17-2018 C-reactive protein h igh sensitivity Mary Sangeeta Work Phone: Start: 11-17-2018 Sedimentation rate r [...] THERAPY CALISTA ACEVES Start: 11-15-2018 FULL CODE CALISTAPRESLEY MICHELE Start: 11-15-2018 GRADUAL COMPRESSION STOCKINGS (SOFIYA) CALISTA ACEVES Start: 11-15-2018 INITIATE OXYGEN THER APY PROTOCOL CALISTA ACEVES Start: 11-15-2018 IP CONSULT TO HOSPITALIST CALISTA ACEVES Start: 11-15-2018 IP CONSULT TO NEUROSURGERY CALISTA ACEVES Start: 11-15-2018 OT EVAL AND TREAT MARQUEZ ACEVES Start: 11-15-2018 PATIENT STATUS (DIRECT) CALISTA ACEVES Start: 11-15-2018 PT EVAL AND TREAT MARQUEZ A KETAN Start: 11-15-2018 REASON FOR NO MECHAN ICAL VTE PROPHYLAXIS CALISTA ACEVES Start: 11-15-2018 [employer] EVAL AND TREAT CHRIS ACEVES Start: 11-15-2018 TOBACCO CESSATION EDUCATION CALISTA ACEVES Start: 11-15-2018 VITAL SIGNS CALISTAPRESLEY MICHELE Start: 11-15-2018 Radiologic exam ches t single view CALISTA ACEVES Start: 11-15-2018 INCENTIVE SPIROMETRY RT CALISTA ACEVES Start: 11-15-2018 Radiologic exam ches t single view Mary SilvestregYuko Work Phone: Start: 11-15-2018 Duplex scan extracra nial art compl bi study CALISTA ACEVES Start: 11-15-2018 Culture bacterial quanttative colony count urine CALISTA KETAN Start: 11-15-2018 Urinalysis microscopic only CALISTA KETAN Start: 11-15-2018 Urnls dip stick/tabl et rgnt auto w/o microscopy CALISTA ACEVES Start: 11-15-2018 INCENTIVE SPIROMETRY RT CALISTA KETAN Start: 11-15-2018 Duplex scan extracra nial art compl bi study Dulce Stevens Work Phone: Start: 11-15-2018 Culture bacterial quanttative colony count urine Mary ShahtrongYuko Work Phone: Start: 11-15-2018 Urinalysis microscopic only Mary Sangeeta Work Phone: Start: 11-15-2018 Blood count complete auto&auto difrntl wbc CALISTA ACEVES Start: 11-15-2018 Culture bacterial bl ood aerobic w/id isolates CALISTA ACEVES Start: 11-15-2018 Microscopic examinat ion of blood, culture CALISTA ACEVES Comment on above: Performed By: #### P TT #### [facility] [address] [place] [address] Start: 11-15-2018 Urnls dip stick/tabl et rgnt auto w/o microscopy Mary Sangeeta Work Phone: Start: 11-15-2018 IP CONSULT TO HOSPITALIST CALISTA ACEVES Start: 11-15-2018 PATIENT STATUS (DIRECT) CALISTA ACEVES Start: 11-15-2018 AMBULATE PATIENT CALISTA ACEVES Start: 11-15-2018 DIET GENERAL CALISTA STAFFORD UN Start: 11-15-2018 PLACE INTERMITTENT P NEUMATIC COMPRESSION DEVICE CALISTA ACEVES Start: 11-15-2018 WOUND CARE CALISTA STAFFORD UN Start: 11-15-2018 ACTIVITY TOLERATED Blanca ACEVES Start: 11-15-2018 INCENTIVE SPIROMETRY RT CALISTA ACEVES Start: 11-15-2018 Blood count complete auto&auto difrntl wbc Mary Vega Work Phone: Start: 11-15-2018 Culture bacterial bl ood aerobic w/id isolates Mary Vega Work Phone: Start: 11-15-2018 INCENTIVE SPIROMETRY RT CALISTA ACEVES Start: 11-15-2018 INCENTIVE SPIROMETRY RT CALISTA ACEVES Start: 11-15-2018 PULSE OXIMETRY, CONTINUOUS CALISTA ACEVES Start: 11-15-2018 DISCHARGE PATIENT MARQUEZ Borrero ACEVES Start: 11-15-2018 Blood count complete auto&auto [...] CALISTA ACEVES Start: 11-14-2018 DAILY WEIGHTS CALISTA PATINO Start: 11-14-2018 OT EVAL AND TREAT MARQUEZ Gissell KETAN Start: 11-14-2018 PT EVAL AND TREAT MARQUEZ Gissell KETAN Start: 11-14-2018 PULSE OXIMETRY, CONTINUOUS CALISTA ACEVES Start: 11-14-2018 INCENTIVE SPIROMETRY RT CALISTA ACEVES Start: 11-13-2018 INCENTIVE SPIROMETRY RT CALISTA ACEVES Start: 11-13-2018 PULSE OXIMETRY, CONTINUOUS CALISTA ACEVES Start: 11-13-2018 INCENTIVE SPIROMETRY RT CALISTA ACEVES Start: 11-13-2018 DIET GENERAL CALISTA BRA UN Start: 11-13-2018 PLACE INTERMITTENT P NEUMATIC COMPRESSION DEVICE CALISTA ACEVES Start: 11-13-2018 PULSE OXIMETRY, CONTINUOUS CALISTA ACEVES Start: 11-13-2018 ADVANCE DIET TOLE RATED (NURSING COMMUNICATION) CALISTA ACEVES Start: 11-13-2018 ELEVATE HOB CALISTA STAFFORD UN Start: 11-13-2018 INCENTIVE SPIROMETRY RT CALISTA ACEVES Start: 11-13-2018 INITIATE OXYGEN THER APY PROTOCOL CALISTA ACEVES Start: 11-13-2018 INTAKE AND OUTPUT MARQUEZ ACEVES Start: 11-13-2018 NEURO/VASCULAR CHECKS Blanca DORA ACEVES Start: 11-13-2018 NOTIFY PHYSICIAN (SPECIFY) CALISTA ACEVES Start: 11-13-2018 TELEMETRY MONITORING MA ALEX ACEVES Start: 11-13-2018 TOBACCO CESSATION EDUCATION CALISTA ACEVES Start: 11-13-2018 VITAL SIGNS CALISTA BRA UN Start: 11-13-2018 WOUND CARE CALISTA RIVERA UN Start: 11-13-2018 FULL CODE CALISTA BRA [...] CALISTA STAFFORD UN Start: 11-04-2018 Sedimentation rate r bc automated CALISTA ACEVES Start: 11-04-2018 PATIENT STATUS (FROM ED OR OR/PROCEDURAL) CALISTA ACEVES Start: 11-04-2018 Blood count complete auto&auto difrntl wbc CALISTA ACEVES Start: 11-04-2018 C-reactive protein CHRIS SHERWOOD ACEVES Start: 11-04-2018 Comprehensive metabo lic panel CALISTA ACEVES Start: 11-04-2018 Prothrombin time CALISTA KETAN Start: 11-04-2018 Thromboplastin time partial plasma/whole blood CALISTA KETAN Start: 11-04-2018 Urnls dip stick/tabl et rgnt auto w/o microscopy CALISTA ACEVES Start: 11-04-2018 Sedimentation rate r bc automated Ab Drummond Work Phone: Start: 11-04-2018 Blood count complete auto&auto difrntl wbc Ab Drummond Work Phone: Start: 11-04-2018 C-reactive protein Steven hung Drummnod Work Phone: Start: 11-04-2018 Comprehensive metabo lic panel Ab Drummond Work Phone: Start: 11-04-2018 Prothrombin time Ab Drummond Work Phone: Start: 11-04-2018 Thromboplastin time partial plasma/whole blood Ab Drummond Work Phone: Accessory mobilizati on of the lumbar spine Turner DOSS Appendectomy MIKAYLA WEISS Bilateral salpingect mackenzie with oophorectomy MIKAYLA WEISS Cataract extraction and insertion of intraocular lens MIKAYLA WEISS Cholecystectomy MIKAYLA PER JUAN Colonoscopy MIKAYLA WEISS Lumbar spinal fusion Turner DOSS Procedure on back MIKAYLA DUMAS Tonsillectomy MIKAYLA WEISS Plan of Treatment Date Care Activity Detail Author Start: 06-29-2023 ambulatory Ambulatory Facility:[facility] Start: 04-06-2023 [facility] Start: 04-04-2023 Administration of prophylactic treatment [facility] Start: 04-02-2023 Referral to heating and refrigeration inspector [facility] Start: 04-02-2023 Hospital admission [facility] Start: 08-05-2022 CT Abdomen and Pelvi s WO contrast [facility] Start: 08-05-2022 CT of abdomen and pe lvis without contrast CT abdomen pelvis wo con [facility] Start: 11-19-2019 Creatinine monitoring Creatinine mon [place], [place] Start: 11-19-2019 Potassium monitoring Potassium monit [place], [place] Start: 11-05-2019 Creatinine monitoring Creatinine mon [place] Start: 11-05-2019 Potassium monitoring Potassium monit [place], [place] Start: 12-04-2018 End: 12-04-2018 Office Visit 12/04/2018 Office Visit Neurosurgery Lenny Corral MD [address] [facility], [address] [address] [employer] Start: 11-30-2018 End: 11-30-2018 Office Visit 11/30/2018 Office Visit Neurosurgery Lenny Corral MD [address] [facility], [address] [address] [employer] Start: 11-23-2018 End: 11-23-2018 Office Visit 11/23/2018 Office Visit Neurosurgery Lenny Corral MD [address] [facility], [address] [address] [employer] Start: 11-13-2018 Annual Wellness Visi t (AWV) Annual Wellness Visit (AWV) [place], [place] Start: 10-21-2018 Influenza vaccination Flu vaccine (# 1) [place], [place] Start: 2001 DEXA (modify frequen cy per FRAX score) DEXA (modify frequency per FRAX score) [place], [place] Start: 2001 Pneumococcal 65+ yea rs Vaccine (1 of 2 - PCV13) Pneumococcal 65+ years Vaccine (1 of 2 - PCV13) [place], [place] Start: 1986 Shingles Vaccine (1 of 2) Steward gles Vaccine (1 of 2) [place], [place] Start: 11-13-1955 DTaP/Tdap/Td vaccine (1 - Tdap) DTaP/Tdap/Td vaccine (1 - Tdap) [place], [place] Start: 1946 Lipid screen Lipid screen [place], [place] Culture Blood #1 Culture Blood # 1 Microbiology STAT 11/15/2018 4:37 PM EDT [place], [place] Culture Blood #2 Culture Blood # 2 Microbiology STAT 11/15/2018 4:37 PM EDT [place] End: 11-05-2018 EKG 12 Lead EKG 12 Lead ECG Routine One Time for 1 Occurrences starting 11/05/2018 until 11/05/2018 [place] Comment on above: One Time for 1 Occur rences starting 11/05/2018 until 11/05/2018 Incentive spirometry Incentive s pirometry Respiratory Care Routine Every 2hr while awake until discontinued starting 11/15/2018 [place] Comment on above: Every 2hr while awak e until discontinued starting 11/15/2018 Initiate Oxygen Ther apy Protocol Initiate Oxygen Therapy Protocol Respiratory Care Routine Daily until discontinued starting 11/15/2018 [place] Comment on above: Daily until disconti nued starting 11/15/2018 Nonrebreather mask oxygen Nonreb reather mask oxygen Respiratory Care Routine As directed - RT (PRN) until discontinued starting 11/05/2018 [place] Comment on above: As directed - RT (DE N) until discontinued starting 11/05/[address] [facility] Work Phone: Patient referral [facility] Work Phone: End: 11-15-2018 Speech and language therapy regime Speech language pathology evaluation [employer] Routine One Time for 1 Occurrences starting 11/15/2018 until 11/15/2018 [place] Comment on above: One Time for 1 Occur rences starting 11/15/2018 until 11/15/2018 End: 11-04-2018 Urine Reflex to Culture Urine Reflex to Culture Lab STAT One Time for 1 Occurrences starting 11/04/2018 until 11/04/2018 [place] Comment on above: One Time for 1 Occur rences starting 11/04/2018 until 11/04/2018 Immunizations Immunization Date Immunization Notes Care Provider Laxmi rafaelmata 12-20-2021 influenza virus vaccine, unspecified formulation MIKAYLA ABHISHEK [facility] 11-30-2021 influenza virus vaccine, unspecified formulation MD Addy Daniels Work Phone: [facility] 12-21-2020 influenza virus vaccine, unspecified formulation MIKAYLA ABHISHEK [facility] 01-09-2019 influenza virus vaccine, unspecified formulation MIKAYLA ABHISHEK [facility] 11-29-2017 influenza virus vaccine, unspecified formulation MIKAYLA ABHISHEK [facility] 01-02-2017 influenza virus vaccine, unspecified formulation MIKAYLA ABHISHEK [facility] 12-06-2016 influenza virus vaccine, unspecified formulation MIKAYLA ABHISHEK [facility] 12-11-2014 influenza virus vaccine, unspecified formulation MIKAYLA ABHISHEK [facility] NEGATED: Highlighted row has not occurred!05-03-2023 influenza virus vaccine, unspecified formulation Turner DOSS [facility] [place] Payers Date Payer Category Payer Self-pay [id number] 2021 Unknown [id number] 2018 Medicare MEDICARE MEDICAR E PART A AND B xxxxxxxxxxx 2018-Present [phone] [place] [address] xxxxxxxxxxx [id number] 2014 Medicare [id number] 2014 Medicare MEDICARE MEDICAR E PART A AND B xxxxxxxxxx 2014-Present [phone] [address] [address] [place] [address] xxxxxxxxxx [id number] 2014 Unknown [id number] 2014 Unknown 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 [address] xxxxxxxxxxxx 2014-Present [phone] [address] [place] [address] xxxxxxxxxxxx [id number] 1959 Medicare [id number] 1959 Self-pay [id number] 1959 Unknown [id number] 1936 Unknown [id number] 2.16.840.1.147451.3.579.2.647 1936 Unknown [id number] 2.16.840.1.992476.3.579.2.182 1936 Unknown [id number] 2.16.840.1.394747.3.579.2.182 1936 Unknown [id number] 2.16.840.1.316846.3.579.2.182 1936 Unknown [id number] 2.16.840.1.114533.3.579.2.182 1936 Unknown [id number] 2.16.840.1.878404.3.579.2.593 1936 Unknown [id number] 2.16.840.1.704062.3.579.2.593 1936 Unknown [id number] 2.16.840.1.229177.3.579.2.593 1936 Unknown [id number] 2.16.840.1.807941.3.579.2.593 1936 Unknown [id number] 2.16.840.1.658648.3.579.2.593 1936 Unknown [id number] 2.16.840.1.443877.3.579.2.593 1936 Unknown [id number] 2.16.840.1.469747.3.579.2.593 1936 Unknown [id number] 2.16.840.1.585876.3.579.2.593 1936 Unknown [id number] 2.16.840.1.684479.3.579.2.593 1936 Unknown [id number] 2.16840.1.844277.3.579.2.593 1936 Unknown [id number] 2.16.840.1.203202.3.579.2.727 1936 Unknown [id number] 2.16.840.1.180192.3.579.2.727 1936 Unknown [id number] 2.16.840.1.567860.3.579.2.727 1936 Unknown [id number] 2.16840.1.581116.3.579.2.727 1936 Unknown [id number] 2.16.840.1.620613.3.579.2.727 1936 Unknown [id number] 2.16.840.1.736830.3.579.2.727 1936 Unknown [id number] 2.16.840.1.667147.3.579.2.727 Unknown Unknown [id number] 2.16.840.1.548249.3.579.2.531 Unknown [id number] 2.16.840.1.551506.3.579.2.531 Unknown [id number] 2.16.840.1.604688.3.579.2.531 Unknown [id number] 2.16.840.1.807218.3.579.2.531 Social History Date Type Detail Facility Start: 11-04-2018 End: 05-03-2023 Tobacco smoking status NHIS Never smoker [facility] Start: 11-04-2018 End: 11-19-2018 Alcohol intake Not Currently APROOFED Sex Assigned At Not on file APROOFED Tobacco smoking status No Smokin g Status Entered [facility] Start: 1935 Sex Assigned At Female F [facility] Tobacco smoking status Never [facility] Medical Equipment Procedure Code Equipment Code Equipment Origin al Text Equipment Identifier Dates Graft Canc Chip 30cc [id number] - [id number] Start: 11-13-2018 Graft Canc Chip [id number] 15cc - [id number] Start: 11-13-2018 Sys Fix Reline 0 x Conn 40 50mm 5.5lp Adj [id number] Start: 11-13-2018 Jose Armando-Graft Infuse Kt Med [id number] Start: 11-13-2018 Impl Spine Cage Kamila Crv [id number] 8deg [id number] Start: 11-13-2018 Impl Spine Cage Kamila Crv [id number] 8deg [id number] Start: 11-13-2018 Screw Polyaxial Reline O 2s 6.0x55mm [id number] Start: 11-13-2018 Screw Lk Reline Opn Tulip 5.5mm [id number] Start: 11-13-2018 Impl Spine Harish Reline-O Lrdtc 5.5x70mm [id number] Start: 11-13-2018 Impl Spine Harish Reline-O 5.5x75mm [id number] Start: 11-13-2018 Goals Date Patient Goal Desired Activity /State Functional Status Date Assessment Result Facility 05-03-2023 Functional Status N/A General Ross johan Avilez 04-06-2023 Functional status Patient at Baseline [facility] Work Phone: 12-22-2022 Functional Status N/A [facility] Mental Status Date Assessment Result Facility 04-06-2023 Cognitive function Cognitive Sta tus Patient at Baseline [facility] Work Phone: Clinical Notes 04-04-2022 to 05-03-2023 Note Date & Type Note Facility 05-03-2023 Note Chief Complaint consultation for skin lesion HPI Staff 87 year old female presents on consultation from Dr. Daniels for left facial lesion. Reports flesh colored lesion has been present for approximately 4-5 years. Reports gradual increase in size. Denies this being tender or sore. Denies bleeding. History of Present Illness 87 yo female with multiple medical problems, inlcuding htn, hyperlipidemia, hypothyroidism, neuropathy, referred for enlarging lesion left cheek; present for 5 years, gradually increasing in size, no ulceration or bleeding, no pain; no pigmentation change; no h/o skin cancer; Review of Systems PHQ Score Initial Depression Screen Score: 0 SCORE Physical Exam Vitals & Measurements HR: 76(Peripheral) RR: 16 BP: 156/82 HT: 61 in HT: 155 cm WT: 59.8 kg WT: 131.56 lb BMI: 24.89 HEENT: normal conjunctiva, sclera clear, no scleral icterus, EOM intact, PERRLA, oral mucosa moist without lesions. Neck: trachea midline, no mass, symmetric, no thyromegaly or nodules, no adenopathy Respiratory: lungs CTA, respirations non labored. Cardiovascular: regular rate and rhythm, no murmur, no pedal edema or varicosities. Musculoskeletal: normal gait, digits and nails without infection, nodes, cyanosis, clubbing. Skin: no rashes, 7 mm raised, irregular, flesh colored lesion left medial cheek, no ulceration, no ulcers, no subcutaneous nodules, induration. Psychiatric/Neuro: oriented to time, place, person, judgement normal, affect appropriate for age, insight intact, no focal deficits. Tests: , review of old records completed , Discussed surgical options, risks, and possible complications with patient. Assessment/Plan 1. Neoplasm of uncertain behavior of skin of face (D48.5: Neoplasm of uncertain behavior of skin) plan excisional biopsy under local anesthesia at [facility], for definitive diagnosis and treatment, informed consent obtained. Follow-up No qualifying data available Problem List/Past Medical History Ongoing Arthritis Atrial fibrillation BMI 24.0-24.9, adult Deafness Foreign body in bladder Hydronephrosis, right Hypercholesteremia Hyperlipidemia Hypertension Hypomagnesemia Hyponatremia Hypothyroidism Kidney stone Neoplasm of uncertain behavior of skin of face Neuropathy RBBB (right bundle branch block) Ureteral stenosis Historical Aspirin long-term use Procedure/Surgical History Accessory mobilization of the lumbar spine, Appendectomy, Bilateral salpingo-oophorectomy, Cataract extraction and insertion of intraocular lens, Cholecystectomy, Colonoscopy, Fusion of lumbar spine, Tonsillectomy. Medications amLODIPine 10 mg Tab, 10 mg= 1 tab(s), Oral, Daily carvedilol 6.25 mg Tab, 6.25 mg= 1 tab(s), Oral, BID CeleXA 10 mg Tab, 10 mg= 1 tab(s), Oral, Daily levothyroxine 88 mcg (0.088 mg) Tab, 88 mcg= 1 tab(s), Oral, Daily losartan 100 mg Tab, 100 mg= 1 tab(s), Oral, Daily magnesium oxide 400 mg Tab, 400 mg= 1 tab(s), Oral, TID Pantoprazole [address] Tab, 40 mg= 1 tab(s), Oral, Daily Potassium Chloride (Abm-Oyed-Man 10), 20 mEq, Oral, TID pravastatin 80 mg Tab, 80 mg= 1 tab(s), Oral, Daily Allergies Motrin (Stomach upset) atorvastatin (Hives) predniSONE (Rash) Social History Alcohol - Denies Alcohol Use, 05/03/2023 Substance Abuse - Denies Substance Abuse, 05/03/2023 Tobacco Never (less than 100 in lifetime) Tobacco Use:. Never Smokeless Tobacco Use:., 05/03/2023 Family History Arthritis: Mother and Father. Hypertension: Mother and Father. Lupus: Father. Immunizations Vaccine Date Status Comments influenza virus vaccine, inactivated - Not Given Patient Refuses influenza virus vaccine, inactivated 12/20/2021 Recorded influenza virus vaccine, inactivated 12/21/2020 Recorded influenza virus vaccine, inactivated 01/09/2019 Recorded influenza virus vaccine, inactivated 11/29/2017 Recorded influenza virus vaccine, inactivated 01/02/2017 Recorded influenza virus vaccine, inactivated 12/06/2016 Recorded influenza virus vaccine, inactivated 12/11/[address] [facility] Comment on above: Result Comment: Elec tronically Signed By: ROMARIO DUMONT, Turner Connor\Date and Time Signed: 05/03/23 20:14 EDT 04-06-2023 Discharge summary Note Date/Time April 06, 2023 12:22pm [facility] [address] [place] [address] Discharge Summary Signed Patient: Hiram Madrid MR#: [id number] : 1935 Acct:[id number] Age/Sex: 87 / F Adm Date: 4 Loc: Room: [address] [place] [address]: Turner Frank DO Copies to: MD Turner Pickering, ~ Providers Date of Discharge: 04/06/23 Discharging Provider: [...] is a 89-year-old who presented here to [facility] as a transfer on 04/02/2023. She had [...] amlodipine daily. Her home med list reports [id number] mg but currently shows me a 5 [...] Plan Discharge Plan Patient Disposition: Home Health [facility] Activity: Ambulate as Tolerated Diet: Low-Sodium Additional [...] <Electronically signed by Turner Frank DO> 04/06/[address] [facility] [address] [facility] Work Phone: 1(495) 849-641302-14-2024 Progress note Author Turner Frank [facility] April 05, 2023 8:14pm Note Date/Time April 05, 2023 8:14pm [facility] [address] [place] [address] Hospitalist Progress Note Signed Patient: Hiram Madrid MR#: [id number] : 1935 Acct:[id number] Age/Sex: 87 / F Adm Date: 4 Loc: Room: [address] [place] [address] Type: ADM IN Attending Dr: Turner Frank [...] Meq Kcl IV 04/01/24 20:29 0 mls/hr .[id number] [facility] Infusion Levothyroxine Sodium 88 mcg 04/03/23 [...] 09:00 04/05/23 08:25 Pantoprazole 40 Mg Tablet.Dr LUNDY 04/04/24 08:59 40 mg DAILY.0630 [place] Administration [...] <Electronically signed by Turner Frank DO> 04/05/[address] [facility] Work Phone: 1(923) 911-333502-14-2024 Progress note Author Gaudencio Romero [facility] April 05, 2023 11:16am Note Date/Time April 05, 2023 11:16am [facility] [address] [place] [address] Nephrology Progress Note Signed Patient: Hiram Madrid MR#: [id number] : 1935 Acct:[id number] Age/Sex: 87 / F Adm Date: 4 Loc: Room: [address] [place] [address] Type: ADM IN Attending Dr: Turner Frank DO Copies to: ~ Date of Service: 04/05/2023 Subjective Subjective Narrative: Ms. Madrid is an 87-year-old white female was transferred from [facility] on 04/02/23 for hyponatremia. Patient did complain for nausea with no vomiting or diarrhea. She had back pain and other vague symptoms that prompted her to go [facility]. ER lab showed sodium 116, potassium 2.3 and magnesium 1.6. Otherlabs unremarkable including creatinine 0.7 mg/dL. EKG showed normal sinus rhythm at 86/min with right bundle branch block. Patient was given 2 g magnesium in the emergency room and subsequently was transferred to [facility] for further management. On arrival, patient was placed on gentle hydration with normal saline with 20 mEq potassium chloride at rate of75 cc/h. Review of his records showed that the patient has a chronic hyponatremia for almost a year however she never seen heating and refrigeration inspector. Sodium has been running in the 120s. [...] [facility] [...] 10 Mg Tablet) 10 mg PO DAILY [facility] Stop: 04/02/24 08:59 Last Admin: 04/05/23 08:25 Dose: 10 mg Docusate Sodium (Docusate 100 Mg Capsule) 200 mg PO BID PRN PRN Reason: Constipation Stop: 04/01/24 19:57 Docusate Sodium (Docusate 100 Mg Capsule) 200 mg PO BID [place] Stop: 04/02/24 08:59 Last Admin: 04/05/23 08:25 Dose: 200 mg Hydralazine HCl (Hydralazine 20 Mg/Ml Vial) 10 mg IV-PUSH Q4H PRN PRN Reason: if SBP > 185 Stop: 04/01/24 19:57 Potassium Chloride/Sodium Chloride (0.9 % Nacl-20 Meq Kcl) 1,000 mls @ 75 mls/hr IV .[id number] [place] Stop: 04/01/24 20:29 Last Infusion: 04/04/23 08:45 Dose: 0 mls/hr Levothyroxine Sodium (Levothyroxine 88 Mcg Tablet) 88 mcg PO DAILY@0630 [place] Stop: 04/02/24 06:29 Last Admin: 04/05/23 05:52 Dose: 88 mcg Lorazepam (Lorazepam 2 Mg/Ml Vial) 0.25 mg IV-PUSH Q4H PRN PRN Reason: Anxiety Stop: 10/01/23 11:38 Losartan Potassium (Losartan 50 Mg Tablet) 100 mg PO DAILY [facility] Stop: 04/02/24 08:59 Last Admin: 04/05/23 08:26 Dose: 100 mg Pantoprazole Sodium (Pantoprazole 40 Mg Tablet.Dr) 40 mg PO DAILY.0630 [facility] Stop: 04/04/24 08:59 Last Admin: 04/05/23 08:25 [...] needed. Documented By: Gaudencio Romero MD 04/05/23 1101 Signed By: <Electronically signed by MD Gaudencio Romero> 04/05/[address] [facility] [address] [facility] Work Phone: 1(668) 420-196902-13-2024 Progress note Author Gaudencio Romero [facility] April 04, 2023 2:06pm Note Date/Time April 04, 2023 2:00pm [facility] [address] [place] [address] Nephrology Progress Note Signed Patient: Hiram Madrid MR#: [id number] : 1935 Acct:[id number] Age/Sex: 87 / F Adm Date: 4 Loc: 4P Room: 0E3693-3 Type: ADM IN Attending Dr: Turner Frank DO Copies to: ~ Date of Service: 04/04/2023 Subjective Subjective Narrative: Ms. Madrdi is an 87-year-old white female was transferred from [facility] on 04/02/23 for hyponatremia. Patient did complain for nausea with no vomiting or diarrhea. She had back pain and other vague symptoms that prompted her to go [facility]. ER lab showed sodium 116, potassium 2.3 and magnesium 1.6. Otherlabs unremarkable including creatinine 0.7 mg/dL. EKG showed normal sinus rhythm at 86/min with right bundle branch block. Patient was given 2 g magnesium in the emergency room and subsequently was transferred to [facility] for further management. On arrival, patient was placed on gentle hydration with normal saline with 20 mEq potassium chloride at rate of75 cc/h. Review of his records showed that the patient has a chronic hyponatremia for almost a year however she never seen heating and refrigeration inspector. Sodium has been running in the 120s. [...] Total 100 / 100 2275 / 2275 675 / 675 Output Total 250 / 250 Balance 100 / 100 2024 / 2024 674 / 674 Weight 63 kg 61.3 kg 62.5 kg Meds and Allergies Meds: Active Medications Acetaminophen (Acetaminophen 325 Mg Tablet) 650 mg PO Q4H PRN PRN Reason: Pain Scale 1 - 5 Stop: 04/01/24 19:57 Amlodipine Besylate (Amlodipine 10 Mg Tablet) 10 mg PO DAILY [facility] Stop: 04/02/24 08:59 Last Admin: 04/04/23 10:06 Dose: 10 mg Docusate Sodium (Docusate 100 Mg Capsule) 200 mg PO BID PRN PRN Reason: Constipation Stop: 04/01/24 19:57 Docusate Sodium (Docusate 100 Mg Capsule) 200 mg PO BID [facility] Stop: 04/02/24 08:59 Last Admin: 04/04/23 10:06 Dose: Not Given Hydralazine HCl (Hydralazine 20 Mg/Ml Vial) 10 mg IV-PUSH Q4H PRN PRN Reason: if SBP > 185 Stop: 04/01/24 19:57 Potassium Chloride/Sodium Chloride (0.9 % Nacl-20 Meq Kcl) 1,000 mls @ 75 mls/hr IV .[id number] [facility] Stop: 04/01/24 20:29 Last Infusion: 04/04/23 08:45 Dose: 0 mls/hr Levothyroxine Sodium (Levothyroxine 88 Mcg Tablet) 88 mcg PO DAILY@0630 [facility] Stop: 04/02/24 06:29 Last Admin: 04/04/23 06:26 Dose: 88 mcg Lorazepam (Lorazepam 2 Mg/Ml Vial) 0.25 mg IV-PUSH Q4H PRN PRN Reason: Anxiety Stop: 10/01/23 11:38 Losartan Potassium (Losartan 50 Mg Tablet) 100 mg PO DAILY [facility] Stop: 04/02/24 08:59 Last Admin: 04/04/23 10:06 Dose: 100 mg Pantoprazole Sodium (Pantoprazole 40 Mg Tablet.Dr) 40 mg PO DAILY.629 [facility] Stop: 04/04/24 08:59 Pravastatin Sodium (Pravastatin 40 Mg Tablet) 80 mg PO DAILY [facility] Stop: 04/02/24 08:59 Last Admin: 04/04/23 10:06 [...] outpatient Documented By: Gaudencio Romero MD 04/04/23 5238 Signed By: <Electronically signed by MD Gaudencio Romero> 04/04/[address] [facility] [address] [facility] Work Phone: 1(884) 269-714402-13-2024 Progress note Author Turner Frank [facility] April 04, 2023 1:09pm Note Date/Time April 04, 2023 1:09pm [facility] [address] [place] [address] Hospitalist Progress Note Signed Patient: Hiram Madrid MR#: [id number] : 1935 Acct:[id number] Age/Sex: 87 / F Adm Date: 4 Loc: Room: [address] [place] [address] Type: ADM IN Attending Dr: Turner Frank [...] Meq Kcl IV 04/01/24 20:29 0 mls/hr .[id number] [facility] Infusion Levothyroxine Sodium 88 mcg 04/03/23 [...] [place] Pravastatin Sodium 80 mg 04/03/23 09:00 04/04/23 10:06 Pravastatin 40 Mg Tablet PO 04/02/24 [...] <Electronically signed by Turner Frank DO> 04/04/[address] [facility] [address] [facility] Work Phone: 1(875) 775-255902-12-2024 Progress note Author Turner Frank [facility] April 03, 2023 7:29pm Note Date/Time April 03, 2023 7:29pm [facility] [address] [place] [address] Hospitalist Progress Note Signed Patient: Hiram Madrid MR#: [id number] : 1935 Acct:[id number] Age/Sex: 87 / F Adm Date: 4 Loc: Room: [address] [place] [address] Type: ADM IN Attending Dr: Turner Frank [...] Meq Kcl IV 04/01/24 20:29 75 mls/hr .[id number] [place] Administration Levothyroxine Sodium 88 mcg 04/03/23 [...] <Electronically signed by Turner Frank DO> 04/03/[address] [facility] Work Phone: 1(214) 575-124002-12-2024 Consult note Author Gaudencio Romero [facility] April 03, 2023 2:07pm Note Date/Time April 03, 2023 2:07pm [facility] [address] [place] [address] Nephrology Consult Note Signed Patient: Hiram Madrid MR#: [id number] : 1935 Acct:[id number] Age/Sex: 87 / F Adm Date: 4 Loc: Room: [address] [place] [address] Type: ADM IN Attending Dr: Turner Frank DO Copies to: MD Gaudencio Pickering MD Michael R. Frings, DO~ Providers Consult Date: 04/03/23 Requesting Provider: Turner Frank DO Primary Care Provider: Addy Daniels MD [facility] Reason for Consult: Hyponatremia, sodium 117 on admission History of Present Illness: Ms. Madrid is an 87-year-old white female was transferred from [facility] on 04/02/23 for hyponatremia. Patient did complain for nausea with no vomiting or diarrhea. She had back pain and other vague symptoms that prompted her to go [facility]. ER lab showed sodium 116, potassium 2.3 and magnesium 1.6. Otherlabs unremarkable including creatinine 0.7 mg/dL. EKG showed normal sinus rhythm at 86/min with right bundle branch block. Patient was given 2 g magnesium in the emergency room and subsequently was transferred to [facility] for further management. On arrival, patient was placed on gentle hydration with normal saline with 20 mEq potassium chloride at rate of75 cc/h. Review of his records showed that the patient has a chronic hyponatremia for almost a year however she never seen heating and refrigeration inspector. Sodium has been running in the 120s. [...] has no ascites or edema. Lab at [facility] showed TSH 5.6, urine osmolality 298 and urine sodium 79 mmol/L Review of her medications showed that the patient was on amlodipine, losartan, potassium supplement and hydrochlorothiazide 25 mg daily. She also takes magnesium oxide 400 mg twice a day. No SSRI. Review of Systems Review of Systems All other systems reviewed & are negative unless noted below or in HPI [facility] Medical History (Updated 04/03/23 @ 14:00 by [...] Surgical History (Updated 02/01/23 @ 14:30 by [facility]) History of tonsillectomy Problem List clean-up per [...] 10 Mg Tablet) 10 mg PO DAILY [facility] Stop: 04/02/24 08:59 Last Admin: 04/03/23 08:58 Dose: 10 mg Docusate Sodium (Docusate 100 Mg Capsule) 200 mg PO BID PRN PRN Reason: Constipation Stop: 04/01/24 19:57 Docusate Sodium (Docusate 100 Mg Capsule) 200 mg PO BID [facility] Stop: 04/02/24 08:59 Last Admin: 04/03/23 08:58 Dose: Not Given Hydralazine HCl (Hydralazine 20 Mg/Ml Vial) 10 mg IV-PUSH Q4H PRN PRN Reason: if SBP > 185 Stop: 04/01/24 19:57 Potassium Chloride/Sodium Chloride (0.9 % Nacl-20 Meq Kcl) 1,000 mls @ 75 mls/hr IV .[id number] [facility] Stop: 04/01/24 20:29 Last Admin: 04/02/23 21:56 Dose: 75 mls/hr Levothyroxine Sodium (Levothyroxine 88 Mcg Tablet) 88 mcg PO DAILY@0630 [facility] Stop: 04/02/24 06:29 Last Admin: 04/03/23 05:54 Dose: 88 mcg Losartan Potassium (Losartan 50 Mg Tablet) 100 mg PO DAILY [facility] Stop: 04/02/24 08:59 Last Admin: 04/03/23 08:58 Dose: 100 mg Pravastatin Sodium (Pravastatin 40 Mg Tablet) 80 mg PO DAILY [facility] Stop: 04/02/24 08:59 Last Admin: 04/03/23 08:58 [...] 01:50 04:48 MCHC 35.8 H (32.0-35.0) g/dL [place]er # (Auto) 1.1 H (0.0-0.8) x10E3/uL Sodium [...] 04/03/23 Range/Units 08:00 10:38 MCHC (32.0-35.0) g/dL [place]er # (Auto) (0.0-0.8) x10E3/uL Sodium 118 L* [...] stay Documented By: Gaudencio Romero MD 04/03/23 2256 Signed By: <Electronically signed by MD Gaudencio Romero> 04/03/[address] [facility] [address] [facility] Work Phone: 1([phone]) 532-112102-11-2024 History and physical note Author Natividad Gergory [facility] April 02, 2023 8:22pm Note Date/Time April 02, 2023 8:06pm [facility] [address] [place] [address] Hospitalist H&P Signed Patient: Hiram Madrid MR#: [id number] : 1935 Acct:[id number] Age/Sex: 87 / F Adm Date: 4 Loc: Room: [address] [place] [address] Type: ADM IN Attending Dr: Lucy Lockhart MD Copies to: MD Lucy Pickering MD Ruta Semaskiene, MD~ HPI DATE OF EXAMINATION: 04/02/23 CHIEF COMPLAINT: Hyponatremia HISTORY OF PRESENT ILLNESS: 87 years old female was transferred from [facility] for hyponatremia. Itseems like the patient has [...] she has been admitted to [facility] and discharged. Since then she still remains [...] Previous records in the computer system reviewed [facility] Medical History (Updated 04/02/23 @ 20:21 by [...] Surgical History (Updated 02/01/23 @ 14:30 by [facility]) History of tonsillectomy Problem List clean-up per [...] <Electronically signed by Natividad Gregory MD> 04/02/23[address] [facility] Work Phone: 1(761) 200-918011-22-2023 NoteNoted 7 beat run of NSVT on 1 week holter monitor, along with SVT, PVCs Recommended to continue coreg 25 mg bid, will place 30 day monitor, and obtain treadmill cardiolite stress test for ischemic evaluation.[facility]11-22-2023 NotePt reports that she has had 5 syncopal episodes since this Summer- some while having a BM, and other episodes while just up and walking.[facility]11-22-2023 NoteWill monitor with routine echocardiogram annually unless pt has concerning symptomsUnSelect Medical [facility] [place]11-22-2023 NoteRecommended to continue ASA and pravastatinUnSelect [facility] [place]11-22-2023 Note Hypertension is stable Reviewed B/P log and typically in the mornings her b/p with well controlled 120's/70-80, and in the evenings can be up to 140/80 Continue all meds and will add toprolUnSelect [facility] [place] 01-11-2023 NoteContinue pravastatinUnSelect [facility] [place]11-22-2023 NoteWill monitor with routine echocardiogram annually unless pt has concerning symptomsUnSelect [facility] [place]11-22-2023 NoteWill monitor with routine echocardiogram annually unless pt has concerning symptomsUnSelect Medical [facility] [place]11-22-2023 NotePatient here for 3 mo follow up valve disorder and carotid artery stenosis. She has had a few episodes of syncope since last visit. She recently wore Holter monitor. Says Dr. Daniels wants to add metoprolol but she does not want to add another medication. Review of Systems Cardiovascular: Positive for syncope. Hematologic/Lymphatic: Bruises/bleeds easily. All other systems reviewed and are negative.[facility] 01-11-2023 NoteUTP CARDIOLOGY PROGRESS NOTE HPI: [...] called and was evaluated in ED at [facility]. Admits she has had a couple syncopal episodes in the bathroom while having a BM- last one was at [employer]. States she also has had a couple while just up and walking- normal Day to Day activity. Daughter states that pt is usually out for about 1 minute. Of note patient was direct admitted to the [facility] end of August for electrolyte imbalances low sodium, low potassium, and acute anemia. She was evaluated at [facility] in October for ABD pain/ [...] The patient states she was shopping in [place] when she felt the need to have [...] approximately 5 years ago at [facility]. HPI - Altered Mental Status General Chief [...] was someone in the bathroom in the [employer] and she have to go back and [...] tablet 3 levothyroxine (Syn (more content not included)...[facility]11-02-2023 Hospital Discharge instructions Patient Education 12/22/2022 [...] transplant. Follow these instructions at home: Take [id number] and prescription medicines only as told by [...] provider. Document Revised: 05/26/2020 Document Reviewed: 05/26/2020 [employer] Patient Education 2022 [employer] staff. Follow Up Care 09/06/2022 13:10:43 With:MIKAYLA WEISS PA-C, URL Address: [address] [place] [address] [phone] When: Unknown Comments:6 mos w/ renal fxn (per PCP) [facility] Natalya 09-05-2023 NotePt message/ call that she is [...] needs to call for appointment Lesly Alaniz PORTABLE IRRIGATION OPERATOR Division of Cardiology, [facility]- [phone] Pager- [phone] Email- [email or web address] [place]08-25-2023 NoteStable and non pitting currentlyUnSelect [facility] [place] 10-14-2022 NoteCurrently stable Pt to call for any recurrent syncope or concernsUnSelect [facility] [place]08-25-2023 NoteMild on recent echo No concerning symptomsUnSelect [facility] [place]08-25-2023 NoteContinue ASA and statinUnSelect [facility] [place]08-25-2023 NoteHypertension is uncontrolled 160/75- admits this is where her b/p is at home Increase coreg to 25 mg bid, continue losartan 100 mg, hydrochlorothiazide 25 mg, and amlodipine 10 mgUnSelect Medical [facility] [place]08-25-2023 Note Continue pravastatinUnSelect [facility] [place]08-25-2023 NoteNo concerning symptoms Will continue to monitor with echocardiogramUnSelect Medical [facility] [place] 10-14-2022 NoteNo concerning symptoms Will continue to monitor with echocardiogramUnSelect Medical [facility] [place] 10-14-2022 NotePatient here c/o LE edema. Says today they aren't as bad, but she states they're hard and sometimes painful. She has not had lab work since [facility] stay in July 2022. She denies chest pain, lightheadedness, and palpitations. Review of Systems Cardiovascular: Positive for dyspnea on exertion and leg swelling. Hematologic/Lymphatic: Bruises/bleeds easily. All other systems reviewed and are negative.[facility] 10-14-2022 NoteUTP CARDIOLOGY PROGRESS NOTE HPI: [...] was direct admitted to the [facility] end of August for electrolyte [...] Stable and non pitting currently RTC 3[facility] months[facility]02-[facility] Chief [...] p.o. twice dominic (more content not included)... [facility] + [facility] note No data available for this section [facility] Future Appointments Appointment Date:06/29/2023 09:30:00 AM Scheduled Provider:MIKAYLA WEISS PA-C Location:[facility] Appointment Type:URO Office Visit [facility] Evalupgguq noteNo assessment information available [facility] Work Phone: Evaluation note* Diagnosis Onset Date Resolution Status HTN (hypertension) acute Hyponatremia acute [facility] Work Phone: Hospital Discharge instructions No data available for this section [facility] Additional Instructions Take Naprosyn as prescribed for mild to moderate pain. Take Keflex as prescribed to prevent infection. Take Zofran as prescribed for nausea while taking oxycodone. Do not drive while taking oxycodone. Take Flomax daily as prescribed. Call the urologist listed below on Monday to schedule follow-up appointment. 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 Advance Directives and Living Will Power of Marketing Technology Specialist Latest Code Status on File Code Status Date Activated Date Inactivated Comments Full Code 11/05/2018 6:34 PM Full Code 11/04/2018 5:08 PM 11/05/2018 6:34 PM Documents on File Type Date Recorded 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 * Back Pain (Sami) documented in this encounter* Discharge Instr - [...] most local grocery stores, pharmacies, and chain super-stores. ? If you have any questions about [...] Primary Emergency Contact: Andrea Madrid [facility] Mobile Relation: Spouse Secondary Emergency Contact: Liliya Townsend Mobile Relation: Child Market Master needed? No Past Surgical History: Past Surgical History: Procedure Laterality Date APPENDECTOMY BACK SURGERY CHOLECYSTECTOMY LUMBAR FUSION N/A 11/13/2018 PLIF L 3-4-5 DECOMPRESSION L3, L4 performed by Lenny Corral MD at [facility] Right Immunization History: There is no [...] Dressing Independent Toileting Independent Feeding Independent Community Aide Independent Med Delivery whole Wound Care Documentation [...] select all that are sent with patient): {[facility] DME Belongings:[id number]} RN SIGNATURE: MANAGEMENT/SOCIAL WORK SECTION Inpatient Status Date: Patient was admitted to Inpatient Acute Rehab 11/15/18 Readmission Risk Assessment Score: Readmission Risk Risk of Unplanned Readmission: 12 Discharging to Facility/ Agency Name: Karan Sosa Address: Fax: Dialysis Facility (if applicable) Name: Address: Dialysis Schedule: Phone: Fax: County Records Management Officer/Community Product Specialist signature: ICIAN SECTION Prognosis: Good Condition at [...] shift. 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 Leisure & Hobbies: Cooking, reading, needlepoint Additional Comments: 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, has been relying more on dtr and spouse due toworsening weakness past few weeks Current Functional Status: ADL Equipment Provided: Sock aid, Title I Math Tutor Feeding: Modified independent Grooming: Independent UE Bathing: [...] Limits Cognition Status: Cognition Overall Cognitive Status: [facility] Cognition Comment: 6 7 7 6 6 Perception Status: Perception Overall Perceptual Status: [facility] Sensation Status: Sensation Overall Sensation Status: [facility] Vision and Hearing Status: Vision Vision: Impaired Vision Exceptions: Wears glasses for reading Hearing Hearing: Exceptions to [facility] Hearing Exceptions: Hard of hearing/hearing concerns, Right [...] Langford OTR/L 11/20/2018, 4:46 PM Yarely Gordon - 11/20/2018 12:35 PM EDT [facility] MUSIC THERAPY Date: 11/20/2018 Patient Name: Hiram [...] interested in having music therapy again. [] [place]- will attempt to see pt again another day, if time allows. [x] Pt's planned d/c date is before [facility] is scheduled on unit again. [] Pt NOT interested in having music therapy again. BANG Ramos 11/20/2018 * Roselyn Schroeder OTA - 11/20/2018 9:59 AM EDT Occupational Therapy Facility/Department: [facility] Daily Treatment Note NAME: Hiram Madrid [...] 9:55 AM EDT Occupational Therapy Facility/Department: [facility] Daily Treatment Note NAME: Hiram Madrid [...] device (slide rail) Walk: 6 - Modified Kemper Walks at least 150 feet with an ambulatory device, orthosis or prosthesis OR requires extra amount of time OR there is concern for safety Distance Walked: 200' Wheel Chair: 0 - Activity Not Assessed/Does Not Occur Stairs: 6 - Modified Kemper Safely goes up and down at least [...] from Dr. Ellis Holguin D.O., PM&R Attending [phone] [facility] Tasha * Khanh White LPN - 11/19/2018 [...] 2:05 PM EDT Occupational Therapy Facility/Department: [facility] Daily Treatment Note NAME: Hiram Madrid [...] In 1330 Time Out 1400 Minutes 30 CHRISTIANO Langford/Lloyd * Mikayla Lindsey PTA - 11/19/2018 1:09 PM EDT Physical Therapy Rehab Treatment Note Facility/Department: [facility] NAME: Hiram Madrid : 1935 (83 y.o.) [...] education: 0 Therapeutic ex: 20 Mikayla Lindsey LEATHER HEEL BREASTER, 11/19/18 at 2:52 PM * Dulce Stevens DO - 11/19/2018 11:20 AM EDT Progress Note Patient: Hiram Madrid Unit/Bed: R238/R238-01 Date of : 1935 Acct: [id number] Admitting Diagnosis: Impaired mobility [Z74.09] Spinal stenosis [...] and tentative discharge home tomorrow. Follows with field sales specialist in [place]. 11/18/18: called by research staff member regarding tachycardia. Pt was unaware of tachycardia. [...] [place], CHF or arrhythmia. Follows with a field sales specialist from [place] for carotid artery disease and cardiac murmur. [...] to DC home and F/U with regular field sales specialist as outpatient Attending Supervising Physician's Attestation Statement The patient is a 83 y.o. female. I have performed a history and physical examination of the patient. I discussed the case with the physician public relations assistant. I reviewed the patient's Past Medical [...] cardio standpoint. * Padmini De La Rosa LEATHER HEEL BREASTER - 11/19/2018 10:30 AM EDT Physical Therapy Rehab Treatment Note Facility/Department: [facility] Room: [email or web address] NAME: Hiram Madrid : 1935 (83 y.o.) [...] Physical Therapy Rehab Treatment Note Facility/Department: [facility] Room: R238/R238-01 NAME: Hiram Madrid : [...] Neuromuscular Education Neuromuscular Comments: Pizano Initiated: other LEATHER HEEL BREASTER finished it: pt scored a 42/56. Bed [...] education: 10 Therapeutic ex: 0 Mikayla Lindsey LEATHER HEEL BREASTER, 11/19/18 at 11:59 AM * Khanh White LPN - 11/19/2018 9:15 AM EDT Assessment completed. Medicated with Percocet for 10/10 pain in lower back and left leg. Removed old drsg from lower back. Noted a scant amount of serosanguinous drainage. [place] intact. Sutures at lower part of incision intact. Cleanse incision with NS. Applied Neosporin oint to incision. Applied DSD. No back brace per Dr Corral. Call light in reach. Will continue to monitor. * Lenny Corral MD - 11/19/2018 8:23 AM EDT Patient: Hiram Madrid Unit/Bed: R238/R238-01 Date of : 1935 Acct: [id number] Admitting Diagnosis: Impaired mobility [Z74.09] Spinal stenosis of lumbosacral region [M48.07] Admit Date: 11/15/2018 Hospital Day: 4 Current Medications: Scheduled Meds: cephALEXin 500 mg Oral 3 times per day mayydthq-nbcpqchwei-veoklqasb Topical BID enoxaparin 30 mg Subcutaneous Daily [...] woman from homewith spouse who presents to [facility] with the above deficits which impact her [...] ms QTc Calculation (Bazett) 463 ms P [place] 58 degrees R [place] -11 degrees T [place] 5 degrees Xr Chest Standard (2 Vw) [...] risk: progressive activities in PT, continue prophylaxis christopher Bagley and See MAR . 9. Complex discharge [...] Dr. Ellis Holguin D.O., PM&R Attending [address] [place] [address] [place] * Rachael Graf LPN - 11/18/2018 4:39 [...] and no guarding. Musculoskeletal: Back: Urine Culture [[id number]] Collected: 11/15/18 1905 Order Status: Completed Specimen: Urine, clean catch Updated: 11/17/18 0728 Urine Culture, Routine No growth 24 hours Narrative: ORDERED BY: ADDY COKER SOURCE: Urine Clean Catch COLLECTED: 11/15/18 19:05 ANTIBIOTICS AT DI.: RECEIVED : 11/15/18 19:05 Culture Blood #2 [[id number]] Collected: 11/15/18 1637 Order Status: Completed Specimen: Blood Updated: 11/16/18 1815 Culture, Blood 2 No Growth to date. Any change in status will be called. Narrative: ORDERED BY: ADDY COKER SOURCE: Blood COLLECTED: 11/15/18 16:37 ANTIBIOTICS AT DI.: RECEIVED : 11/15/18 16:42 Culture Blood #1 [[id number]] Collected: 11/15/18 1637 Order Status: Completed Specimen: [...] Unit/Bed: R238/R238-01 Date of : 1935 Acct: [id number] Admitting Diagnosis: Impaired mobility [Z74.09] Spinal stenosis [...] performed by Lenny Corral MD at [facility] Right History reviewed. No pertinent family history. [...] on phone: None Gets together: None Attends druze service: None Active member of club or organization: None Attends meetings of clubs or organizations: None Relationship status: None Intimate partner violence: Fear of current or ex partner: None Emotionally abused: None Physically abused: None Forced sexual activity: None Other Topics Concern None Social History Narrative None Subjective/HPI: called by research staff member regarding tachycardia. Pt was unaware of tachycardia. [...] woman from homewith spouse who presents to [facility] with the above deficits which impact her [...] progressive activities in PT, continue prophylaxis SOFIYA garette, elevation and See MAR . 9. Complex [...] up labs. Blanca Holguin D.O., PM&R Attending [address] [place] [address] * Dana Craig, JANET - 11/17/2018 5:45 PM EDT Monitor room called, said pt had about 18 sec run of svt up to 218; notified cardio. * Faye Summers PTA - 11/17/2018 4:07 PM EDT Physical Therapy Rehab Treatment Note Facility/Department: [facility] Room: R238/R238-01 NAME: Hiram Madrid : [...] 2:51 PM EDT Occupational Therapy Facility/Department: [facility] Daily Treatment Note NAME: Hiram Madrid [...] Physical Therapy Rehab Treatment Note Facility/Department: [facility] Room: [place] [address] NAME: Hiram Madrid : 1935 (83 y.o.) [...] Angi Ibanez, 11/17/18 at 2:15 PM * ShamarMelissaAngi - 11/17/2018 12:19 PM EDT Physical Therapy Rehab Treatment Note Facility/Department: [facility] Room: [place] [address] NAME: Hiram Madrid : 1935 (83 y.o.) [...] 8:43 AM EDT Occupational Therapy Facility/Department: [facility] Daily Treatment Note NAME: Hiram Madrid [...] at below status. ADL Equipment Provided: Sock aid;Title I Math Tutor Grooming: Independent UE Bathing: Setup LE Bathing: [...] woman from homewith spouse who presents to [facility] with the above deficits which impact her [...] consult,check dopplers Blanca Holguin D.O., PM&R Attending [phone] [facility] Tasha * Jessica Irvin, OTR/Lloyd - 11/16/2018 4:14 PM EDT Occupational Therapy Facility/Department: [facility] Daily Treatment Note NAME: Hiram Madrid : 1935 Date of Service: 11/16/2018 Discharge Recommendations: Continue to assess pending progress OT Equipment Recommendations Other: Continue to assess Assessment Performance deficits / Impairments: Decreased functional mobility ;Decreased ADL status;Decreased strength;Decreased balance;Decreased endurance;Decreased high- level IADLs Assessment: Pt. is an 83 year old woman from home with spouse who presents to [facility] with the above deficits which impact her [...] Pain: Yes Objective The patient completed the [facility] Mental Status (UMS) Examination on [...] Unit/Bed: R238/R238-01 Date of : 1935 Acct: [id number] Admitting Diagnosis: Impaired mobility [Z74.09] Spinal stenosis of lumbosacral region [M48.07] Admit Date: 11/15/2018 Hospital Day: 1 Current Medications: Scheduled Meds: [START ON 11/17/2018] enoxaparin 40 mg Subcutaneous Daily ymbrtfns-eegrakxled-zycdgfcvy Topical BID docusate sodium 100 mg Oral [...] [place], CHF or arrhythmia. Follows with a field sales specialist from [place] for carotid artery disease and cardiac murmur. [...] performed by Lenny Corral MD at [facility] Social History Social History Socioeconomic History Marital [...] on phone: None Gets together: None Attends druze service: None Active member of club or [...] capsule 100 mg 100 mg Oral BID EDY Tom CNP famotidine (PEPCID) tablet 20 mg 20 mg Oral BID EDY Tom CNP [START ON 11/16/2018] amLODIPine (NORVASC) tablet 10 mg 10 mg Oral Daily EDY Tom CNP [START ON 11/16/2018] aspirin EC tablet 81 mg 81 mg Oral Daily EDY Tom CNP cephALEXin (KEFLEX) capsule 500 mg 500 mg Oral 3 times per day EDY Tom CNP gabapentin (NEURONTIN) capsule 100 mg 100 mg Oral TID EDY Tom CNP [START ON 11/16/2018] levothyroxine (SYNTHROID) tablet 88 mcg 88 mcg Oral Daily MAINE Tom CNP [START ON 11/16/2018] losartan (COZAAR) tablet 100 mg 100 mg Oral Daily EDY Tom CNP oxyCODONE-acetaminophen (PERCOCET) 5-325 MG per tablet 1 tablet 1 tablet Oral Q4H PRN EDY Tom CNP potassium chloride (KLOR-CON) packet 20 mEq 20 mEq Oral BID EDY Tom CNP pravastatin (PRAVACHOL) tablet 80 mg 80 mg Oral Daily Shyla Vizcaino APRN - PLAYGROUND MONITOR polyethylene glycol (GLYCOLAX) packet 17 g 17 [...] on tele 7. GI/DVT proph * Mikayla Lindsey, LEATHER HEEL BREASTER - 11/16/2018 2:04 PM EDT Physical Therapy Rehab Treatment Note Facility/Department: [facility] Room: R238/R238-01 NAME: Hiram Madrid : [...] education: 0 Therapeutic ex: 23 Mikayla Lindsey LEATHER HEEL BREASTER, 11/16/18 at 3:57 PM * Rhiannon Blank, MISSION PLANNER - 11/16/2018 11:21 AM EDT Speech Language [...] from home with spouse who presents to [facility] with the above deficits which impact her [...] to increasing pain) Transfer Assistance: Independent Active Chinese Herbalist: Yes Mode of Transportation: Car Type of [...] And Coordinated: Yes Cognition Overall Cognitive Status: WF Cognition Comment: Comprehension: 7, Expression: 7, Social [...] OTR/L Jessica Irvin OTR/Lloyd * Jena Vega, LEATHER HEEL BREASTER - 11/16/2018 10:35 AM EDT Physical Therapy Rehab Treatment Note Facility/Department: [facility] Room: [place] [address] NAME: Hiram Madrid : 1935 (83 y.o.) [...] trainin Neuro re education:15 Therapeutic ex:15 Jena Vega, LEATHER HEEL BREASTER, 11/16/18 at 11:10 AM * GordonJessenia, BANDING MACHINE OPERATOR - 11/16/2018 9:35 AM EDT [facility] RECREATIONAL THERAPY Initial Evaluation Date: 11/16/2018 Patient [...] hearing in left ear) Patient seen at: [id number] Recreation Therapist received referral, chart reviewed and [...] her flower bed. Past leisure interests: Walking, anabaptist, had pets Future leisure interests: Emotional Observed/noted: Cooperative and Pleasant Affect: Appropriate Comments: Today s Session included: Increased Socialization, Provided active listening and Benefits of the patient's leisure and recreation pursuits being utilized as stress relievers Recommendations to utilize Recreation Therapy services, its supported services and groups include: [facility], Pet Therapy, Leisure Education, Individual [...] - 11/16/2018 8:20 AM EDT Facility/Department: [facility] Rehabilitation Initial Assessment: Physical Therapy Room: [place] [address] NAME: Hiram Madrid : 1935 Date of [...] performed by Lenny Corral MD at [facility] Right Chart Reviewed: Yes Patient assessed [...] to increasing pain) Transfer Assistance: Independent Active Chinese Herbalist: Yes Additional Comments: 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, [...] side to side to initiate log roll retirement goals tank terminal gauger goal 1: pt to be indep with bed mobility retirement goal 2: pt to be indep with bed transfers retirement goal 3: pt to [id number] ft with supervision retirement goal 4: pt to navigate 4 steps with SBA tank terminal gauger goal 5: for Pizano balance testing ELOS: Plan weeks: 2 Therapy Time: Individual Time In 1000 Time Out 1030 Minutes 30 Lakisha Trevino, PT, 11/16/18 at 12:00 PM * Marybel Ackerman, OPHTHALMIC SURGEON - 11/15/2018 11:29 PM EDT [facility] Respiratory Therapy Evaluation Current Order: ACCUNEB .63 Q4 [place] Home Regimen: NONE Ordering Physician: NOEMI Re-evaluation Date: Diagnosis: SEPSIS Patient Status: Stable / Unstable [...] puffs by inhalation with spacer [] Ipratropium [place] 0.02% unit dose by aerosol Ipratropium [place] MDI 2 puffs by inhalation with spacer [] Duoneb (Ipratropium + Albuterol) unit dose by aerosol Ipratropium MDI + Albuterol MDI 2 puffs byinhalation w/spacer MDI to Aerosol [] Albuterol Sulfate MDI Albuterol Sulfate 0.083% unit dose by aerosol [] Levalbuterol MDI 2 puffs by inhalation Levalbuterol 1.25 mg unit dose by aerosol [] Ipratropium [place] MDI by inhalation Ipratropium [place] 0.02% unit dose by aerosol [] Combivent (Ipratropium + Albuterol) MDI by inhalation Duoneb (Ipratropium + Albuterol) unit doseby aerosol Treatment Assessment [Frequency/Schedule]: Change frequency to: ACCUNEB Q4 PRN per Protocol, P&T, [facility] Points 0 1 2 3 4 Pulmonary [...] of lumbosacral region Impaired mobility Vasovagal syncope [facility] [address] [place] [address] Chief Complaint and Reason for Visit Chief Complaint SYNCOPE Chief Complaint hyponatremia hyponatremia hyponatremia Reason for Visit HTN (hypertension) Hyponatremia Chief Complaint hyponatremia hyponatremia hyponatremia high bp Reason for Visit HTN (hypertension) Hyponatremia Additional Source Comments INFORMATION SOURCE (unrecogn ized section and content) DATE CREATED AUTHOR 04/20/2018 [facility] DATE CREATED AUTHOR AUTHOR'S ORGANIZ ATION 11/24/2018 [facility] DATE CREATED AUTHOR AUTHOR'S ORGANIZ ATION 06/14/2022 [facility] DATE CREATED AUTHOR AUTHOR'S ORGANIZ ATION 01/13/2023 [place] DATE CREATED AUTHOR AUTHOR'S ORGANIZ ATION 05/03/2023 [facility] DATE CREATED AUTHOR AUTHOR'S ORGANIZ ATION 05/05/2023 [facility] Reason for Visit (unrecogniz ed section and content) Reason Comments Back Pain Left low back pain r adiates down left leg. Pain flared up last monday Status Reason Specialty Diagnoses / Procedures Referre d By Contact Referred To Contact Diagnoses Intractable back pain Lenny Corral MD [address] [facility], [address] [place] [address] [facility] Patient Care team informatio n [...] Gaudencio Romero MD Other Provider Active Start: Dana tolbert 2023 End: April 06, 2023 Katie Runner , PORTABLE IRRIGATION OPERATOR-C Other Provider Active Start: April 02, 2023 End: April 06, 2023 Fiona Magana MD Other Provider Active Start: 2023 End: April 06, 2023 Cachorro Real MD Other Provider Active Star t: April 02, 2023 End: April 06, 2023 Warner Sood MD Other Provider Active Start: April 02, 2023 End: April 06, 2023 Boni Choi MD Other Provider Active Start: 2023 End: April 06, 2023 Turner Frank [...] Fiona Magana MD Other Provider Active Start: 2023 Cachorro Real MD Other Provider Active Star t: April 03, 2023 Warner Sood MD Other Provider Active Start: April 03, 2023 Boni Choi MD Other Provider Active Start: 2023 Turner Frank DO Other Provider Active Start: April 03, 2023 Team Status: Inactive Member Role Status Dates Addy Daniels MD Primary Care Provider Active Start: April 15, 2023 End: April 15, 2023 Turner Nielsen MD Emergency Provider Active St art: April 15, 2023 End: April 15, 2023 Goals (unrecognized section and content) Goals [...] BE BASED ON THE PRIMARY CLINICAL RECORDS. [facility]. provides no warranty or guarantee of the accuracy or completeness of information in this document.
[2023-05-05 11:53] LABS: Alanine Aminotransferase 22 U/L (14-59); Albumin Globulin Ratio 1.1; Albumin Level 3.3 g/dL (3.4-5.0); Alkaline Phosphatase 67 U/L (46-116); Anion Gap 12.7; Aspartate Amino Transferase 14 U/L (15-37); BUN Creatinine Ratio 16.4; Bilirubin Total 0.4 mg/dL (0.2-1.0); Calcium 8.9 mg/dL (8.5-10.1); Carbon Dioxide 27.4 mmol/L (21.0-32.0); Chloride 93 mmol/L (98-107); Estimated GFR (African America >60 (>=60); Estimated GFR (Non-African Ame >60 (>=60); Globulin 3.1 g/dL; Glucose 84 mg/dL (74-106); Potassium 4.1 mmol/L (3.5-5.1); Sodium 129 mmol/L (136-145); Total Protein 6.4 g/dL (6.4-8.2)
== END 2023-05-05 10:47 | disposition home or self-care (01) ==
LOC: LAB 10:46
PROVIDERS: PCP Family Medicine; Visit Provider Family Medicine
DX: E87.1 Hypo-osmolality and hyponatremia (principal)
CPT/HCPCS: 36415; 80053

== ENCOUNTER 2023-05-10 10:21 | Outpatient (REF) | payer MEDICARE, OTHER, SELFPAY ==
[2023-05-10 14:07] LABS: Alanine Aminotransferase 25 U/L (14-59); Albumin Globulin Ratio 1.1; Albumin Level 3.4 g/dL (3.4-5.0); Alkaline Phosphatase 68 U/L (46-116); Anion Gap 17.1; Aspartate Amino Transferase 16 U/L (15-37); BUN Creatinine Ratio 17.9; Bilirubin Total 0.4 mg/dL (0.2-1.0); Calcium 9.1 mg/dL (8.5-10.1); Carbon Dioxide 25.3 mmol/L (21.0-32.0); Chloride 97 mmol/L (98-107); Estimated GFR (African America >60 (>=60); Estimated GFR (Non-African Ame >60 (>=60); Globulin 3.1 g/dL; Glucose 109 mg/dL (74-106); Potassium 4.4 mmol/L (3.5-5.1); Sodium 135 mmol/L (136-145); Total Protein 6.5 g/dL (6.4-8.2)
== END 2023-05-10 10:22 | disposition home or self-care (01) ==
LOC: LAB 10:21
PROVIDERS: PCP Family Medicine; Visit Provider Family Medicine
DX: E87.1 Hypo-osmolality and hyponatremia (principal)
CPT/HCPCS: 36415; 80053

== ENCOUNTER 2023-05-17 10:27 | Outpatient (REF) | payer MEDICARE, OTHER, SELFPAY ==
[2023-05-17 11:26] LABS: Anion Gap 11.6; BUN Creatinine Ratio 11.4; Carbon Dioxide 27.5 mmol/L (21.0-32.0); Chloride 98 mmol/L (98-107); Estimated GFR (African America >60 (>=60); Estimated GFR (Non-African Ame >60 (>=60); Glucose 126 mg/dL (74-106); Potassium 4.1 mmol/L (3.5-5.1); Sodium 133 mmol/L (136-145)
== END 2023-05-17 10:28 | disposition home or self-care (01) ==
LOC: LAB 10:27
PROVIDERS: PCP Family Medicine; Visit Provider Family Medicine
DX: E87.1 Hypo-osmolality and hyponatremia (principal)
CPT/HCPCS: 36415; 80048

== ENCOUNTER 2023-05-31 10:16 | Outpatient (REF) | payer MEDICARE, OTHER, SELFPAY ==
[2023-05-31 13:04] LABS: Anion Gap 14.6; BUN Creatinine Ratio 16.9; Calcium 9.3 mg/dL (8.5-10.1); Carbon Dioxide 25.8 mmol/L (21.0-32.0); Chloride 99 mmol/L (98-107); Estimated GFR (African America >60 (>=60); Estimated GFR (Non-African Ame >60 (>=60); Glucose 116 mg/dL (74-106); Potassium 4.4 mmol/L (3.5-5.1); Sodium 135 mmol/L (136-145)
== END 2023-05-31 10:17 | disposition home or self-care (01) ==
LOC: LAB 10:16
PROVIDERS: PCP Family Medicine; Visit Provider Family Medicine
DX: E87.1 Hypo-osmolality and hyponatremia (principal)
CPT/HCPCS: 36415; 80048

== ENCOUNTER 2023-06-12 10:22 | Outpatient (REF) | payer MEDICARE, OTHER, SELFPAY ==
[2023-06-12 11:17] LABS: Anion Gap 14.9; BUN Creatinine Ratio 19.7; Calcium 9.2 mg/dL (8.5-10.1); Carbon Dioxide 26.6 mmol/L (21.0-32.0); Chloride 99 mmol/L (98-107); Estimated GFR (African America >60 (>=60); Estimated GFR (Non-African Ame >60 (>=60); Glucose 96 mg/dL (74-106); Potassium 4.5 mmol/L (3.5-5.1); Sodium 136 mmol/L (136-145)
== END 2023-06-12 10:23 | disposition home or self-care (01) ==
LOC: LAB 10:22
PROVIDERS: PCP Family Medicine; Visit Provider Family Medicine
DX: E87.1 Hypo-osmolality and hyponatremia (principal)
CPT/HCPCS: 36415; 80048

== ENCOUNTER 2023-06-16 07:31 | Outpatient (OUT) | payer MEDICARE, OTHER, SELFPAY ==
--- OUTSIDE RECORDS SUMMARY | 2023-06-16 07:35 | XMS_ITS | CCD ---
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 Admitting Unavailable ELLIS, LENNY H. Attending Unavailable ELLIS, LENNY H. Admitting Unavailable ELLIS, LENNY H. Attending Unavailable CALISTA ACEVES Primary Care Unavailable DULCE STEVENS Consulting Unavailable MARY VEGA Admitting Unavaila ble GARY, MARY Attending Unavaila CALISTA Rand Primary Care Unavailable NOLBERTO GIBBONS Consulting Unavailable DULCE STEVENS Consulting Unavailable ELLIS, LENNY H. Consulting Unavailable TY JON Consulting Unavailable CARLOS PAGE Consulting Unavailable ELLIS, LENNY H. Attending Unavailable ELLIS, LENNY H. Referring Unavailable CALISTA ACEVES Primary Care Unavailable Calista Aceves Primary Care Provider CALISTA ACEVES Primary Care Physician DR VALERIE DARDEN Consulting Unavailable HOY ., DR BOLAÑOS Primary Care Unavailable ADELSO, DR PADILLA Attending Unavailable ADELSO, DR PADILLA Admitting Unavailable JEREMIAH .DR BOLAÑOS Primary Care Unavailable RAFA .TYLER Attending Kerry vailable RAFA ., TYLER Admitting Kerry vailable HOY ., DR BOLAÑOS Primary Care Unavailable HOY ., DR BOLAÑOS Attending Unavailable HOY ., DR BOLAÑOS Admitting Unavailable HOY ., DR BOLAÑOS Attending Unavailable HOY ., DR BOLAÑOS Admitting Unavailable HOY ., DR BOLAÑOS Consulting Unavailable ACEVES, DR CALISTA Pereira Primary Care Unavailable TRAY FORMAN Consulting Unavailable TING MIXON Consulting Unavailable JEREMIAH Orta, DR BOLAÑOS Consulting Unavailable JEREMIAH ., DR BOLAÑOS Primary Care Unavailable HOYousuf ., DR BOLAÑOS Attending Unavailable HOYousuf ., DR BOLAÑOS Admitting Unavailable ACEVES, DR [...] Unavailable HOY ., DR BOLAÑOS Consulting Unavailable JEREMIAH ., DR BOLAÑOS Primary Care Unavailable JEREMIAH ., DR BOLAÑOS Attending Unavailable JEREMIAH ., DR BOLAÑOS Admitting Unavailable MD Mami Daniels Primary Care Provider DO [facility] Mami Euceda Primary Care Physician [phone] VALERIE DARDEN Attending Unavailable LESLY ALANIZ Attending Unavailable LESLY ALANIZ Attending Unavailable MD Mami Daniels Primary Care Provider MD Lucy Lockhart Admit Provider MD Gaudencio Romero Other Provider KAMILA Pearce Other Provider Unavailable MD Fiona Magana Other Provider MD Cachorro Real Other Provider MD Barrie [facility] Other Provider MD Boni Choi Other Provider DO Turner Frank Attending Provider MD Turner Nielsen Emergency Provider Raymond HARRISON Attending Unavailable MIKAYLA WEISS Attending Unavailable Raymond HARRISON Attending Unavailable Mami Daneils Referring Unavailable Turner DOSS Attending Unavailable Raymond HARRISON Attending Unavailable MIKAYLA WEISS Attending Unavailable Mami Daniels Primary Care Unavailable Camacho Ladd Admitting Unavailable Camacho Ladd Attending Unavailable Raymond Harrison Admitting Unavailable Raymond Harrison Attending Unavailable Mami Daniels Primary Care Unavailable Mami Daniels Primary Care Unavailable Lucy Lockhart Admitting Unavailable Turenr Frank Attending Unavailable Gaudencio Romero Consulting Unavailable Katie Pearce Consulting Unavailable Fiona Magana Consulting Unavailable Singhmelany Cachorro Consulting Unavailable Barrie, Warner Consulting Unavailable Jimbo Aziz Consulting Unavailable Turner Nielsen Attending Unavailable Mami Daniels Primary Care Unavailable Turner Nielsen Admitting Unavailable Allergies Allergy Classification Reported Allergen(s) Allergy Type Date of Onset Reaction(s) Facility (8 sources) predniSONE; Translations: [prednisone] Drug Allergy 8 Hives, Eruption of skin (disorder) [place] (2 sources) predniSONE Drug Allergy 7 [facility] Repository (6 sources) atorvastatin; Translations: [atorvastatin] Drug Allergy 3 Unknown (qualifier value), Weal (disorder) [facility] (3 sources) Ibuprofen; Translations: [ibuprofen] Drug Allergy Unknown (qualifier value), Stomach ache (finding) [facility] (3 sources) Corticosteroids; Translations: [Corticosteroids (Glucocorticoids )] Allergy to substance 3 Unknown Reaction [facility] (1 source) atorvastatin Drug Allergy 4 [facility] Repository (1 source) predniSONE Drug Allergy 4 [facility] Repository Medications Current Medications Medication Drug [...] Antibacterial, Polymyxin-class Antibacterial Start: 11-16-2018 End: 11-18-2018 wwrwrnrw-wbjueuzhdc-ffnniryc n (NEOSPORIN) ointment carvedilol 6.25 mg oral [...] 100 mg, Oral, DAILY, First dose on 11/16/18 at 0900 Start: 11-05-2018 losartan (COZA AR) [...] Hcl Active 4 MG PO Daily 5 5 August 04, 2022 11:00pm Start: 11-05-2018 [...] 629April 04, 2023 12:00am polyethylene glycol 3350 54002 mg powder for oral solution (1 source) Osmotic Laxative Start: 11-15-2018 polyethylene glycol (GLYCOLAX) packet 17 g Potassium Chloride (10 sources) Start: 08-10-2022 Potassium Chlo ride (Lny-Vnjy-Rkv 10) 20 mEq, Oral, TID Start Date: 08/10/22 Status: Ordered Start: 08-10-2022 Potassium Chlo ride (Ges-Oyin-Cor 10) mEq, Oral, BID Start Date: 08/10/22 [...] 0 Start Date: 08/09/22 Status: Ordered sennosides, half-way 8.6 mg oral tablet (1 source) Start: [...] Discontinued 500 MG PO Twice daily 14 August 04, 2022 11:00pm April 02, 2023 [...] procedure, # 2 tab(s), Refills(s) 0, Pharmacy: [facility] 1986, 155, cm, 08/10/22 9:03:00 EDT, Height/Length [...] mg capsule Discontinued 0.4 MG PO Daily 30 August 04, 2022 11:00pm April 02, 2023 [...] [Unspecified abdominal pain] 08-05-2022 Episodic Cardiac dysrhythmias (2 sources) Atrial [...] 11-15-2018 11-15-2018 Episodic Calculus of urinary tract (7 sources) Kidney stone; Translations: [Calculus of kidney] Onset: 08-05-2022 08-05-2022 Episodic Genitourinary symptoms and ill-defined conditions (1 source) Personal history of urinary (tract) infections; Translations: [PERS HX URINARY TRACT INFECTIONS] Onset: 12-31-2021 Episodic Malaise and fatigue (1 source) Weakness; Translations: [WEAKNESS] Onset: 12-31-2021 Episodic 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 source) 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; Translations: [SKILLED NURSING CURRENT USE OF ASPIRIN] Onset: 12-31-2021 Episodic 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 source) Other shelter (current) drug therapy; Translations: [OTH SKILLED NURSING CURRENT DRUG THERAPY] Onset: 12-31-2021 Episodic Residual [...] for Procedure/Surger yon 05-04-2023 Consent for Procedure/Surgery [id number]#1.0 0TIFF Normal [facility] Facesheeton 05-04-2023 Facesheet [id number]#1.0 0TIFF Normal [facility] Ambulatory Visit Summaryon 0 05-03-2023 Ambulatory Visit Summary HIRAM MADRID :1935 Visit Date:05/03/2023 Ambulatory Visit Instructions Your Care Team Attending Physician - ROMARIO DUMONT, Turner Mckeon Primary Care Physician - Jeremiah DUMONT, Mami Referring Physician - Mami Daniels MD This Is Your Medications List Contact prescribing physician if questions or concerns amlodipine (amLODIPine 10 mg Tab) carvedilol (carvedilol 6.25 mg Tab) citalopram (CeleXA 10 mg Tab) levothyroxine (levothyroxine 88 mcg (0.088 mg) Tab) losartan (losartan 100 mg Tab) magnesium oxide (magnesium oxide 400 mg Tab) pantoprazole (Pantoprazole [address] Tab) potassium chloride (Potassium Chloride (Aiw-Xqgr-Kez 10)) pravastatin (pravastatin 80 mg Tab) Procedures [...] MIKAYLA WEISS PA-C Where: [facility] Normal [facility] Physician Referralon 024 Physician Referral [id number] 0TIFF Normal [facility] Physician Referralon 024 Physician Referral [id number] 20 [id number] 0TIFF Normal [facility] Basic Metabolic Panelon 03-23 Anion gap [Moles/Vol] 14.8 mmol/L Normal 6.0-15.0 [facility] Comment on above: Performed By: #### H EPATIC, LIPASE, CBC, BMP, HS TROP #### [facility] [address] Calcium [Mass/Vol] 9.2 mg/dL Normal 8.6-10.3 [facility] Comment on above: Performed By: #### H EPATIC, LIPASE, CBC, BMP, HS TROP #### [facility] [address] [place] [address] [place] Chloride [Moles/Vol] 91 mmol/L Low 98-107 [facility] Comment on above: Performed By: #### H EPATIC, LIPASE, CBC, BMP, HS TROP #### [facility] [address] [place] [address] CO2 [Moles/Vol] 27.7 mmol/L Normal 21.0-31.0 [facility] Comment on above: Performed By: #### H EPATIC, LIPASE, CBC, BMP, HS TROP #### [facility] [address] [place] [address] [place] Creatinine [Mass/Vol] 0.56 mg/dL Low 0.60-1.20 [facility] Comment on above: Performed By: #### H EPATIC, LIPASE, CBC, BMP, HS TROP #### [facility] [address] [place] [address] [place] Creatinine Clr Calc Pharmacy 42.78 [facility] Comment on above: Result Comment: PERF ORMED BY: [place] [address] PATHOLOGIST S[employer]IOR BUSINESS OBJECTS DEVELOPER GOSIA MCADAMS M.D. Performed By: #### H EPATIC, LIPASE, CBC, BMP, HS TROP #### [facility] [address] [place] [address] [place] GFR/1.73 sq M.predicted MDRD (S/P/Bld) [Vol rate/Area] mL/min/{1.73_m2} Normal [facility] Comment on above: Performed By: #### H EPATIC, LIPASE, CBC, BMP, HS TROP #### [facility] [address] Glucose [Mass/Vol] 116 mg/dL High 70-100 [facility] Comment on above: Result Comment: Formerly named [facility] Glucose Reference Range is dependent on time and content of last meal. Glucose of more than 200 mg/dL in a nonstressed, ambulatory subject supports the diagnosis of Diabetes Mellitus. ADA recommended reference range Performed By: #### H EPATIC, LIPASE, CBC, BMP, HS TROP #### [facility] [address] [place] [address] [place] Potassium [Moles/Vol] 3.5 mmol/L Normal 3.5-5.1 [facility] Comment on above: Performed By: #### H EPATIC, LIPASE, CBC, BMP, HS TROP #### [facility] [address] Sodium [Moles/Vol] 130 mmol/L Low 136-145 [facility] Comment on above: Performed By: #### H EPATIC, LIPASE, CBC, BMP, HS TROP #### [facility] [address] [place] [address] [place] Urea nitrogen [Mass/Vol] 8 mg/dL Normal 7-25 [facility] Comment on above: Performed By: #### H EPATIC, LIPASE, CBC, BMP, HS TROP #### [facility] [address] [place] [address] [place] Calcium [Mass/volume] in Ser um or PlasmaOrdered By: Turner Frank on 04-05-2023 Calcium [Mass/Vol] 9.2 mg/dL 8.6-10.3 [facility] Carbon dioxide, total [Moles /volume] in Serum or PlasmaOrdered By: Turner Frank on 04-05-2023 CO2 [Moles/Vol] 27.7 mmol/L 21.0-31.0 [facility] Chloride [Moles/volume] in S willa or PlasmaOrdered By: Turner Frank on 04-05-2023 Chloride [Moles/Vol] 91 mmol/L 98-107 [facility] Creatinine [Mass/volume] in Serum or PlasmaOrdered By: Turner Frank on 04-05-2023 Creatinine [Mass/Vol] 0.56 mg/dL 0.60-1.20 [facility] Glucose [Mass/volume] in Ser um or PlasmaOrdered By: Turner Frank on 04-05-2023 Glucose [Mass/Vol] 116 mg/dL 70-100 [facility] Comment on above: ADA recommended refe rence rangeRandom Glucose Reference Range is dependent on time and content of last meal. Glucose of more than 200 mg/dL in a nonstressed, ambulatory subject supports the diagnosis of Diabetes Mellitus. No Panel InformationOrdered By: Turner Frank on 04-05-2023 Estimated GFR (CKD-EPI) > 60.0 mL/Min [facility] Creatinine Clearance (Chem 42.78 [facility] Potassium [Moles/volume] in Serum or PlasmaOrdered By: Turner Frank on 04-05-2023 Potassium [Moles/Vol] 3.5 mmol/L 3.5-5.1 [facility] Serum or plasma anion gap de terminationOrdered By: Turner Frank on 04-05-2023 Anion gap [Moles/Vol] 14.8 mmol/L 6.0-15.0 [facility] Sodium [Moles/volume] in Ser um or PlasmaOrdered By: Turner Frank on 04-05-2023 Sodium [Moles/Vol] 130 mmol/L 136-145 [facility] Urea nitrogen [Mass/volume] in Serum or PlasmaOrdered By: Turner Frank on 04-05-2023 Urea nitrogen [Mass/Vol] 8 mg/dL 7-25 [facility] Basic Metabolic Panelon 03-23 Anion gap [Moles/Vol] 10.8 mmol/L Normal 6.0-15.0 [facility] Comment on above: Performed By: #### H EPATIC, LIPASE, CBC, BMP, HS TROP #### [facility] [address] Calcium [Mass/Vol] 9.0 mg/dL Normal 8.6-10.3 [facility] Comment on above: Performed By: #### H EPATIC, LIPASE, CBC, BMP, HS TROP #### [facility] [address] Chloride [Moles/Vol] 92 mmol/L Low 98-107 [facility] Comment on above: Performed By: #### H EPATIC, LIPASE, CBC, BMP, HS TROP #### [address] CO2 [Moles/Vol] 26.3 mmol/L Normal 21.0-31.0 [facility] Comment on above: Performed By: #### H EPATIC, LIPASE, CBC, BMP, HS TROP #### [facility] [address] [place] [address] Creatinine [Mass/Vol] 0.61 mg/dL Normal 0.60-1.20 [facility] Comment on above: Performed By: #### H EPATIC, LIPASE, CBC, BMP, HS TROP #### [place] [address] [place] Creatinine Clr Calc Pharmacy 42.78 [facility] Comment on above: Result Comment: PERF ORMED BY: [place] [address] PATHOLOGIST SENIOR BUSINESS OBJECTS DEVELOPER GOSIA MCADAMS M.D. Performed By: #### H EPATIC, LIPASE, CBC, BMP, HS TROP #### [place] [address] [place] GFR/1.73 sq M.predicted MDRD (S/P/Bld) [Vol rate/Area] mL/min/{1.73_m2} Normal [facility] Comment on above: Performed By: #### H EPATIC, LIPASE, CBC, BMP, HS TROP #### [facility] [address] [place] [address] [place] Glucose [Mass/Vol] 177 mg/dL High 70-100 [facility] Comment on above: Result Comment: [place] Glucose Reference Range is dependent on time and content of last meal. Glucose of more than 200 mg/dL in a nonstressed, ambulatory subject supports the diagnosis of Diabetes Mellitus. ADA recommended reference range Performed By: #### H EPATIC, LIPASE, CBC, BMP, HS TROP #### [facility] [address] [place] [address] Potassium [Moles/Vol] 3.1 mmol/L Low 3.5-5.1 [facility] Comment on above: Performed By: #### H EPATIC, LIPASE, CBC, BMP, HS TROP #### [address] Sodium [Moles/Vol] 126 mmol/L Low 136-145 [facility] Comment on above: Performed By: #### H EPATIC, LIPASE, CBC, BMP, HS TROP #### [address] Urea nitrogen [Mass/Vol] 7 mg/dL Normal 7-25 [facility] Comment on above: Performed By: #### H EPATIC, LIPASE, CBC, BMP, HS TROP #### [facility] [address] [place] [address] [place] Anion gap [Moles/Vol] 10.3 mmol/L Normal 6.0-15.0 [facility] Comment on above: Performed By: #### H EPATIC, LIPASE, CBC, BMP, HS TROP #### [place] [address] [place] Calcium [Mass/Vol] 8.6 mg/dL Normal 8.6-10.3 [facility] Comment on above: Performed By: #### H EPATIC, LIPASE, CBC, BMP, HS TROP #### [place] [id number] [place] Chloride [Moles/Vol] 93 mmol/L Low 98-107 [facility] Comment on above: Performed By: #### H EPATIC, LIPASE, CBC, BMP, HS TROP #### [address] CO2 [Moles/Vol] 27.2 mmol/L Normal 21.0-31.0 [facility] Comment on above: Performed By: #### H EPATIC, LIPASE, CBC, BMP, HS TROP #### [address] Creatinine [Mass/Vol] 0.59 mg/dL Low 0.60-1.20 [facility] Comment on above: Performed By: #### H EPATIC, LIPASE, CBC, BMP, HS TROP #### [address] Creatinine Clr Calc Pharmacy 42.39 [facility] Comment on above: Performed By: #### H EPATIC, LIPASE, CBC, BMP, HS TROP #### [address] GFR/1.73 sq M.predicted MDRD (S/P/Bld) [Vol rate/Area] mL/min/{1.73_m2} [facility] Comment on above: Performed By: #### H EPATIC, LIPASE, CBC, BMP, HS TROP #### [address] Glucose [Mass/Vol] 107 mg/dL High 70-100 [facility] Comment on above: Result Comment: [place] Glucose Reference Range is dependent on time and content of last meal. Glucose of more than 200 mg/dL in a nonstressed, ambulatory subject supports the diagnosis of Diabetes Mellitus. ADA recommended reference range Performed By: #### H EPATIC, LIPASE, CBC, BMP, HS TROP #### [address] Potassium [Moles/Vol] 3.5 mmol/L Normal 3.5-5.1 [facility] Comment on above: Performed By: #### H EPATIC, LIPASE, CBC, BMP, HS TROP #### [facility] [address] Sodium [Moles/Vol] 127 mmol/L Low 136-145 [facility] Comment on above: Performed By: #### H EPATIC, LIPASE, CBC, BMP, HS TROP #### [facility] [address] Urea nitrogen [Mass/Vol] 7 mg/dL Normal 7-25 [facility] Comment on above: Performed By: #### H EPATIC, LIPASE, CBC, BMP, HS TROP #### [facility] [address] Free T4 (Free Thyroxine)on 0 04-04-2023 Free T4 [Mass/Vol] 1.41 ng/dL High 0.61-1.12 [facility] Comment on above: Result Comment: PERF ORMED BY: [place] [address] PATHOLOGIST SENIOR BUSINESS OBJECTS DEVELOPER GOSIA MCADAMS M.D. Performed By: #### H EPATIC, LIPASE, CBC, BMP, HS TROP #### [address] Thyroxine (T4) free [Mass/vo lume] in Serum or PlasmaOrdered By: Turner Frank on 04-04-2023 Free T4 [Mass/Vol] 1.41 ng/dL 0.61-1.12 [facility] Alanine aminotransferase [En zymatic activity/volume] in Serum or PlasmaOrdered By: Natividad Gregory on 04-03-2023 ALT [Catalytic activity/Vol] 14 U/L 7 [facility] Albumin [Mass/volume] in Ser um or Plasma by Bromocresol green (BCG) dye binding methoOrdered By: Natividad Gregory on 04-03-2023 Albumin BCG dye [Mass/Vol] 3.7 g/dL 3.5-5.7 [facility] Alkaline phosphatase [Enzyma tic activity/volume] in Serum or PlasmaOrdered By: Natividad Gregory on 04-03-2023 ALP [Catalytic activity/Vol] 56 U/L 34-104 [facility] Aspartate aminotransferase [ Enzymatic activity/volume] in Serum or PlasmaOrdered By: Natividad Gregory on 04-03-2023 AST [Catalytic activity/Vol] 20 U/L 13-39 [facility] Basic Metabolic Panelon 03-23 Anion gap [Moles/Vol] 13.3 mmol/L Normal 6.0-15.0 [facility] Comment on above: Performed By: #### H EPATIC, LIPASE, CBC, BMP, HS TROP #### [facility] [address] Calcium [Mass/Vol] 8.9 mg/dL Normal 8.6-10.3 [facility] Comment on above: Performed By: #### H EPATIC, LIPASE, CBC, BMP, HS TROP #### [facility] [address] [place] [address] [place] Chloride [Moles/Vol] 86 mmol/L Low 98-107 [facility] Comment on above: Performed By: #### H EPATIC, LIPASE, CBC, BMP, HS TROP #### [facility] [address] CO2 [Moles/Vol] 26.0 mmol/L Normal 21.0-31.0 [facility] Comment on above: Performed By: #### H EPATIC, LIPASE, CBC, BMP, HS TROP #### [facility] [address] [place] [address] [place] Creatinine [Mass/Vol] 0.65 mg/dL Normal 0.60-1.20 [facility] Comment on above: Performed By: #### H EPATIC, LIPASE, CBC, BMP, HS TROP #### [facility] [address] [place] [address] [place] Creatinine Clr Calc Pharmacy 42.39 Normal [facility] Comment on above: Result Comment: PERF ORMED BY: [place] [address] PATHOLOGIST SENIOR BUSINESS OBJECTS DEVELOPER GOSIA MCADAMS M.D. Performed By: #### H EPATIC, LIPASE, CBC, BMP, HS TROP #### [facility] [address] [place] [address] [place] GFR/1.73 sq M.predicted MDRD (S/P/Bld) [Vol rate/Area] mL/min/{1.73_m2} [facility] Comment on above: Performed By: #### H EPATIC, LIPASE, CBC, BMP, HS TROP #### [facility] [address] Glucose [Mass/Vol] 170 mg/dL High 70-100 [facility] Comment on above: Result Comment: Formerly named [facility] Glucose Reference Range is dependent on time and content of last meal. Glucose of more than 200 mg/dL in a nonstressed, ambulatory subject supports the diagnosis of Diabetes Mellitus. ADA recommended reference range Performed By: #### H EPATIC, LIPASE, CBC, BMP, HS TROP #### [address] Potassium [Moles/Vol] 3.3 mmol/L Low 3.5-5.1 [facility] Comment on above: Performed By: #### H EPATIC, LIPASE, CBC, BMP, HS TROP #### [address] Sodium [Moles/Vol] 122 mmol/L Off scale low 136-145 [facility] Comment on above: Result Comment: Crit ical Result Called to and read back by: NOT FIRST at: 04/03/2023 19:17:43 by:[id number] Performed By: #### H EPATIC, LIPASE, CBC, BMP, HS TROP #### [address] Urea nitrogen [Mass/Vol] 7 mg/dL Normal 7-25 [facility] Comment on above: Performed By: #### H EPATIC, LIPASE, CBC, BMP, HS TROP #### [facility] [address] Anion gap [Moles/Vol] 14.6 mmol/L Normal 6.0-15.0 [facility] Comment on above: Performed By: #### H EPATIC, LIPASE, CBC, BMP, HS TROP #### [facility] [address] [place] [address] Calcium [Mass/Vol] 8.8 mg/dL Normal 8.6-10.3 [facility] Comment on above: Performed By: #### H EPATIC, LIPASE, CBC, BMP, HS TROP #### [address] Chloride [Moles/Vol] 81 mmol/L Low 98-107 [facility] Comment on above: Performed By: #### H EPATIC, LIPASE, CBC, BMP, HS TROP #### [address] CO2 [Moles/Vol] 26.8 mmol/L Normal 21.0-31.0 [facility] Comment on above: Performed By: #### H EPATIC, LIPASE, CBC, BMP, HS TROP #### [address] Creatinine [Mass/Vol] 0.61 mg/dL Normal 0.60-1.20 [facility] Comment on above: Performed By: #### H EPATIC, LIPASE, CBC, BMP, HS TROP #### [address] Creatinine Clr Calc Pharmacy 42.39 [facility] Comment on above: Result Comment: PERF ORMED BY: [place] [address] PATHOLOGIST S[employer]IOR BUSINESS OBJECTS DEVELOPER GOSIA MCADAMS M.D. Performed By: #### H EPATIC, LIPASE, CBC, BMP, HS TROP #### [address] GFR/1.73 sq M.predicted MDRD (S/P/Bld) [Vol rate/Area] mL/min/{1.73_m2} [facility] Comment on above: Performed By: #### H EPATIC, LIPASE, CBC, BMP, HS TROP #### [address] Glucose [Mass/Vol] 108 mg/dL High 70-100 [facility] Comment on above: Result Comment: Formerly named [facility] Glucose Reference Range is dependent on time and content of last meal. Glucose of more than 200 mg/dL in a nonstressed, ambulatory subject supports the diagnosis of Diabetes Mellitus. ADA recommended reference range Performed By: #### H EPATIC, LIPASE, CBC, BMP, HS TROP #### [facility] [address] Potassium [Moles/Vol] 3.4 mmol/L Low 3.5-5.1 [facility] Comment on above: Performed By: #### H EPATIC, LIPASE, CBC, BMP, HS TROP #### [facility] [address] Sodium [Moles/Vol] 119 mmol/L Off scale low 136-145 [facility] Comment on above: Result Comment: Crit ical Result Called to and read back by: NOT FIRST TIME CRITICAL at: 04/03/2023 14:56:28 by:RG Performed By: #### H EPATIC, LIPASE, CBC, BMP, HS TROP #### [facility] [address] Urea nitrogen [Mass/Vol] 7 mg/dL Normal 7-25 [facility] Comment on above: Performed By: #### H EPATIC, LIPASE, CBC, BMP, HS TROP #### [facility] [address] Anion gap [Moles/Vol] 16.6 mmol/L High 6.0-15.0 [facility] Comment on above: Performed By: #### H EPATIC, LIPASE, CBC, BMP, HS TROP #### [facility] [address] [place] [address] [place] Calcium [Mass/Vol] 9.0 mg/dL Normal 8.6-10.3 [facility] Comment on above: Performed By: #### H EPATIC, LIPASE, CBC, BMP, HS TROP #### [facility] [address] [place] [address] [place] Chloride [Moles/Vol] 81 mmol/L Low 98-107 [facility] Comment on above: Performed By: #### H EPATIC, LIPASE, CBC, BMP, HS TROP #### [address] CO2 [Moles/Vol] 25.7 mmol/L Normal 21.0-31.0 [facility] Comment on above: Performed By: #### H EPATIC, LIPASE, CBC, BMP, HS TROP #### [address] Creatinine [Mass/Vol] 0.63 mg/dL Normal 0.60-1.20 [facility] Comment on above: Performed By: #### H EPATIC, LIPASE, CBC, BMP, HS TROP #### [address] Creatinine Clr Calc Pharmacy 42.39 [facility] Comment on above: Result Comment: PERF ORMED BY: [place] [address] PATHOLOGIST [employer]IOR BUSINESS OBJECTS DEVELOPER GOSIA MCADAMS M.D. Performed By: #### H EPATIC, LIPASE, CBC, BMP, HS TROP #### [address] GFR/1.73 sq M.predicted MDRD (S/P/Bld) [Vol rate/Area] mL/min/{1.73_m2} [facility] Comment on above: Performed By: #### H EPATIC, LIPASE, CBC, BMP, HS TROP #### [address] Glucose [Mass/Vol] 123 mg/dL High 70-100 [facility] Comment on above: Result Comment: [place] Glucose Reference Range is dependent on time and content of last meal. Glucose of more than 200 mg/dL in a nonstressed, ambulatory subject supports the diagnosis of Diabetes Mellitus. ADA recommended reference range Performed By: #### H EPATIC, LIPASE, CBC, BMP, HS TROP #### [place] [address] [place] Potassium [Moles/Vol] 3.3 mmol/L Low 3.5-5.1 [facility] Comment on above: Performed By: #### H EPATIC, LIPASE, CBC, BMP, HS TROP #### [address] Sodium [Moles/Vol] 120 mmol/L Off scale low 136-145 [facility] Comment on above: Result Comment: Crit ical Result Called to and read back by: NOT FIRST TIME CRITICAL at: 04/03/2023 13:00:21 by:RG Performed By: #### H EPATIC, LIPASE, CBC, BMP, HS TROP #### [address] Urea nitrogen [Mass/Vol] 7 mg/dL Normal 7-25 [facility] Comment on above: Performed By: #### H EPATIC, LIPASE, CBC, BMP, HS TROP #### [address] Anion gap [Moles/Vol] 10.9 mmol/L Normal 6.0-15.0 [facility] Comment on above: Performed By: #### H EPATIC, LIPASE, CBC, BMP, HS TROP #### [address] Calcium [Mass/Vol] 8.6 mg/dL Normal 8.6-10.3 [facility] Comment on above: Performed By: #### H EPATIC, LIPASE, CBC, BMP, HS TROP #### [address] CO2 [Moles/Vol] 28.3 mmol/L Normal 21.0-31.0 [facility] Comment on above: Performed By: #### H EPATIC, LIPASE, CBC, BMP, HS TROP #### [address] Creatinine [Mass/Vol] 0.60 mg/dL Normal 0.60-1.20 [facility] Comment on above: Performed By: #### H EPATIC, LIPASE, CBC, BMP, HS TROP #### [facility] [address] Glucose [Mass/Vol] 121 mg/dL High 70-100 [facility] Comment on above: Result Comment: Formerly named [facility] Glucose Reference Range is dependent on time and content of last meal. Glucose of more than 200 mg/dL in a nonstressed, ambulatory subject supports the diagnosis of Diabetes Mellitus. ADA recommended reference range Performed By: #### H EPATIC, LIPASE, CBC, BMP, HS TROP #### [facility] [address] Potassium [Moles/Vol] 3.2 mmol/L Low 3.5-5.1 [facility] Comment on above: Performed By: #### H EPATIC, LIPASE, CBC, BMP, HS TROP #### [address] Sodium [Moles/Vol] 118 mmol/L Off scale low 136-145 [facility] Comment on above: Result Comment: Crit ical Result Called to and read back by: NOT FIRST TIME at: 04/03/2023 08:56:25 by:[id number] Performed By: #### H EPATIC, LIPASE, CBC, BMP, HS TROP #### [address] Urea nitrogen [Mass/Vol] 5 mg/dL Low 7-25 [facility] Comment on above: Performed By: #### H EPATIC, LIPASE, CBC, BMP, HS TROP #### [address] Anion gap [Moles/Vol] 14.1 mmol/L Normal 6.0-15.0 [facility] Comment on above: Performed By: #### B MP #### [address] Calcium [Mass/Vol] 8.3 mg/dL Low 8.6-10.3 [facility] Comment on above: Performed By: #### B MP #### [place] [address] [place] Chloride [Moles/Vol] 82 mmol/L Low 98-107 [facility] Comment on above: Performed By: #### H EPATIC, LIPASE, CBC, BMP, HS TROP #### [facility] [address] [place] [address] Performed By: #### B MP #### [address] CO2 [Moles/Vol] 25.8 mmol/L Normal 21.0-31.0 [facility] Comment on above: Performed By: #### B MP #### [address] Creatinine [Mass/Vol] 0.59 mg/dL Low 0.60-1.20 [facility] Comment on above: Performed By: #### B MP #### [address] Creatinine Clr Calc Pharmacy 42.94 [facility] Comment on above: Result Comment: PERF ORMED BY: [place] [address] PATHOLOGIST S[employer]IOR BUSINESS OBJECTS DEVELOPER GOSIA MCADAMS M.D. Performed By: #### B MP #### [address] GFR/1.73 sq M.predicted MDRD (S/P/Bld) [Vol rate/Area] mL/min/{1.73_m2} [facility] Comment on above: Performed By: #### B MP #### [address] Glucose [Mass/Vol] 102 mg/dL High 70-100 [facility] Comment on above: Result Comment: [place] Glucose Reference Range is dependent on time and content of last meal. Glucose of more than 200 mg/dL in a nonstressed, ambulatory subject supports the diagnosis of Diabetes Mellitus. ADA recommended reference range Performed By: #### B MP #### [address] Potassium [Moles/Vol] 2.9 mmol/L Off scale low 3.5-5.1 [facility] Comment on above: Result Comment: Crit ical Result Called to and read back by: TADEO BEAUCHAMP at: 04/03/2023 03:37:07 by:[id number] Performed By: #### B MP #### [facility] [address] Sodium [Moles/Vol] 119 mmol/L Off scale low 136-145 [facility] Comment on above: Result Comment: Crit ical Result Called to and read back by: TADEO BEAUCHAMP at: 04/03/2023 03:37:07 by:[id number] Performed By: #### B MP #### [facility] [address] Urea nitrogen [Mass/Vol] 6 mg/dL Low 7-25 [facility] Comment on above: Performed By: #### B MP #### [facility] [address] [place] [address] Basophils Auto (Bld) [#/Vol] Ordered By: Natividad Gregory on 04-03-2023 Basophils (Bld) [#/Vol] 0.1 10*3/uL 0.0-0.2 [facility] Basophils/100 WBC Auto (Bld) Ordered By: Natividad Gregory on 04-03-2023 Basophils/100 WBC (Bld) 0.6 % . F [facility] Bilirubin.total [Mass/volume ] in Serum or PlasmaOrdered By: Natividad Gregory on 04-03-2023 Bilirubin [Mass/Vol] 0.7 mg/dL 0.3-1.0 [facility] Complete Blood Count Auto Di ffon 04-03-2023 Basophils (Bld) [#/Vol] 0.1 10*3/uL Normal 0.0-0.2 [facility] Comment on above: Result Comment: PERF ORMED BY: [place] [address] PATHOLOGIST S[employer] BUSINESS OBJECTS DEVELOPER GOSIA MCADAMS M.D. Performed By: #### C BC, CMP #### [address] Basophils/100 WBC (Bld) 0.6 % Normal . [facility] Comment on above: Performed By: #### C BC, CMP #### [facility] [address] Eosinophils (Bld) [#/Vol] 0.1 10*3/uL Normal 0.0-0.45 [facility] Comment on above: Performed By: #### C BC, CMP #### [facility] [address] Eosinophils/100 WBC (Bld) 0.8 % Normal . [facility] Comment on above: Performed By: #### C BC, CMP #### [facility] [address] Erythrocyte distribution width (RBC) [Ratio] 13.9 % Normal 11.9-15.3 [facility] Comment on above: Performed By: #### C BC, CMP #### [address] Hematocrit (Bld) [Volume fraction] 35.5 % Normal 34.0-46.4 [facility] Comment on above: Performed By: #### C BC, CMP #### [address] Hemoglobin (Bld) [Mass/Vol] 12.7 g/dL Normal 11.8-15.4 [facility] Comment on above: Performed By: #### C BC, CMP #### [place] [address] [place] Lymphocytes (Bld) [#/Vol] 1.7 10*3/uL Normal 1.00-4.8 [facility] Comment on above: Performed By: #### C BC, CMP #### [address] Lymphocytes/100 WBC (Bld) 15.6 % Normal . [facility] Comment on above: Performed By: #### C BC, CMP #### [address] MCH (RBC) [Entitic mass] 31.6 pg Normal 24.7-34.3 [facility] Comment on above: Performed By: #### C BC, CMP #### [facility] [address] MCV (RBC) [Entitic vol] 88.3 fL Normal 80-100 [facility] Comment on above: Performed By: #### C BC, CMP #### [facility] [address] Mean Corpuscular HGB Conc 35.8 g/dL High 32.0-35.0 [facility] Comment on above: Performed By: #### C BC, CMP #### [facility] [address] Monocytes (Bld) [#/Vol] 1.1 10*3/uL High 0.0-0.8 [facility] Comment on above: Performed By: #### C BC, CMP #### [facility] [address] [place] [address] [place] Monocytes/100 WBC (Bld) 10.3 % Normal . [facility] Comment on above: Performed By: #### C BC, CMP #### [facility] [address] [place] [address] [place] Neutrophils (Bld) [#/Vol] 7.7 10*3/uL Normal 1.8-7.7 [facility] Comment on above: Performed By: #### C BC, CMP #### [facility] [address] [place] [address] [place] Neutrophils/100 WBC (Bld) 72.7 % Normal . [facility] Comment on above: Performed By: #### C BC, CMP #### [facility] [address] [place] [address] [place] NRBC% 0.3 /100{WBC} Normal 0-0.5 [facility] Comment on above: Performed By: #### C BC, CMP #### [facility] [address] Platelet mean volume (Bld) [Entitic vol] 7.0 fL Normal 6.3-10.7 [facility] Comment on above: Performed By: #### C BC, CMP #### [address] Platelets (Bld) [#/Vol] 424 10*3/uL Normal 150-450 [facility] Comment on above: Performed By: #### C BC, CMP #### [address] RBC (Bld) [#/Vol] 4.02 10*6/uL Normal 3.60-5.00 [facility] Comment on above: Performed By: #### C BC, CMP #### [address] WBC (Bld) [#/Vol] 10.6 10*3/uL Normal 3.8-11.6 [facility] Comment on above: Performed By: #### C BC, CMP #### [address] Comprehensive Metabolic Pane bebeto 04-03-2023 Albumin [Mass/Vol] 3.7 g/dL Normal 3.5-5.7 [facility] Comment on above: Performed By: #### C BC, CMP #### [address] Albumin/Globulin [Mass ratio] 1.5 {ratio} Normal [facility] Comment on above: Performed By: #### C BC, CMP #### [address] ALP [Catalytic activity/Vol] 56 U/L Normal 34-104 [facility] Comment on above: Performed By: #### C BC, CMP #### [address] ALT [Catalytic activity/Vol] 14 U/L Normal 7-52 [facility] Comment on above: Performed By: #### C BC, CMP #### [address] Anion gap [Moles/Vol] 12.9 mmol/L Normal 6.0-15.0 [facility] Comment on above: Performed By: #### C BC, CMP #### [facility] [address] AST [Catalytic activity/Vol] 20 U/L Normal 13-39 [facility] Comment on above: Performed By: #### C BC, CMP #### [facility] [address] Bilirubin [Mass/Vol] 0.7 mg/dL Normal 0.3-1.0 [facility] Comment on above: Performed By: #### C BC, CMP #### [facility] [address] Calcium [Mass/Vol] 8.5 mg/dL Low 8.6-10.3 [facility] Comment on above: Performed By: #### C BC, CMP #### [facility] [address] [place] [address] [place] Chloride [Moles/Vol] 81 mmol/L Low 98-107 [facility] Comment on above: Performed By: #### C BC, CMP #### [facility] [address] [place] [address] [place] CO2 [Moles/Vol] 26.1 mmol/L Normal 21.0-31.0 [facility] Comment on above: Performed By: #### C BC, CMP #### [facility] [address] Creatinine [Mass/Vol] 0.58 mg/dL Low 0.60-1.20 [facility] Comment on above: Performed By: #### C BC, CMP #### [facility] [address] [place] [address] [place] Creatinine Clr Calc Pharmacy 42.94 [facility] Comment on above: Result Comment: PERF ORMED BY: [place] [address] PATHOLOGIST S[employer]IOR BUSINESS OBJECTS DEVELOPER GOSIA MCADAMS M.D. Performed By: #### C BC, CMP #### [facility] [address] [place] [address] [place] GFR/1.73 sq M.predicted MDRD (S/P/Bld) [Vol rate/Area] mL/min/{1.73_m2} Normal [facility] Comment on above: Performed By: #### C BC, CMP #### [facility] [address] Globulin (S) [Mass/Vol] 2.4 g/dL Normal F [facility] Comment on above: Performed By: #### C BC, CMP #### [facility] [address] Glucose [Mass/Vol] 136 mg/dL High 70-100 [facility] Comment on above: Result Comment: Former[facility] Glucose Reference Range is dependent on time and content of last meal. Glucose of more than 200 mg/dL in a nonstressed, ambulatory subject supports the diagnosis of Diabetes Mellitus. ADA recommended reference range Performed By: #### C BC, CMP #### [facility] [address] Potassium [Moles/Vol] 3.0 mmol/L Low 3.5-5.1 [facility] Comment on above: Performed By: #### C BC, CMP #### [facility] [address] Protein [Mass/Vol] 6.1 g/dL Low 6.4-8.9 [facility] Comment on above: Performed By: #### C BC, CMP #### [facility] [address] Sodium [Moles/Vol] 117 mmol/L Off scale low 136-145 [facility] Comment on above: Result Comment: Crit ical Result Called to and read back by: EDMAR PATEL at: 04/03/2023 06:09:08 by:[id number] Performed By: #### C BC, CMP #### [facility] [address] Urea nitrogen [Mass/Vol] 6 mg/dL Low 7-25 [facility] Comment on above: Performed By: #### C BC, CMP #### [facility] [address] [place] [id number] [facility] Eosinophils Auto (Bld) [#/Vo l]Ordered By: Natividad Gregory on 04-03-2023 Eosinophils (Bld) [#/Vol] 0.1 10*3/uL 0.0-0.45 [facility] Eosinophils/100 WBC Auto (Bl d)Ordered By: Natividad Gregory on 04-03-2023 Eosinophils/100 WBC (Bld) 0.8 % . [facility] Erythrocyte distribution wid th Auto (RBC) [Ratio]Ordered By: Natividad Gregory on 04-03-2023 Erythrocyte distribution width (RBC) [Ratio] 13.9 % 11.9-15.3 [facility] Globulin Calc (S) [Mass/Vol] Ordered By: Natividad Gregory on 04-03-2023 Globulin (S) [Mass/Vol] 2.4 g/dL [facility] Hematocrit Auto (Bld) [Volum e fraction]Ordered By: Natividad Gregory on 04-03-2023 Hematocrit (Bld) [Volume fraction] 35.5 % 34.0-46.4 [facility] Hemoglobin [Mass/volume] in BloodOrdered By: Natividad Gregory on 04-03-2023 Hemoglobin (Bld) [Mass/Vol] 12.7 g/dL 11.8-15.4 [facility] Leukocytes [#/volume] correc sofiya for nucleated erythrocytes in Blood by Automated counOrdered By: Natividad Gregory on 04-03-2023 WBC corrected for nucl RBC Auto (Bld) [#/Vol] 10.6 10*3/uL 3.8-11.6 [facility] Lymphocytes Auto (Bld) [#/Vo l]Ordered By: Natividad Gregory on 04-03-2023 Lymphocytes (Bld) [#/Vol] 1.7 10*3/uL 1.00-4.8 [facility] Lymphocytes/100 WBC Auto (Bl d)Ordered By: Natividad Gregory on 04-03-2023 Lymphocytes/100 WBC (Bld) 15.6 % . [facility] MCH Auto (RBC) [Entitic mass ]Ordered By: Natividad Gregory on 04-03-2023 MCH (RBC) [Entitic mass] 31.6 pg 24.7-34.3 [facility] MCHC Auto (RBC) [Mass/Vol]Or dered By: Natividad Gregory on 04-03-2023 MCHC (RBC) [Mass/Vol] 35.8 g/dL 32.0-35.0 [facility] MCV Auto (RBC) [Entitic vol] Ordered By: Natividad Gregory on 04-03-2023 MCV (RBC) [Entitic vol] 88.3 fL 80-100 [facility] Monocytes Auto (Bld) [#/Vol] Ordered By: Natividad Gregory on 04-03-2023 Monocytes (Bld) [#/Vol] 1.1 10*3/uL 0.0-0.8 [facility] Monocytes/100 WBC Auto (Bld) Ordered By: Natividad Gregory on 04-03-2023 Monocytes/100 WBC (Bld) 10.3 % . [facility] Neutrophils Auto (Bld) [#/Vo l]Ordered By: Natividad Gregory on 04-03-2023 Neutrophils (Bld) [#/Vol] 7.7 10*3/uL 1.8-7.7 [facility] Neutrophils/100 WBC Auto (Bl d)Ordered By: Natividad Gregory on 04-03-2023 Neutrophils/100 WBC (Bld) 72.7 % . [facility] Nucleated erythrocytes [Pres ence] in Blood by Automated countOrdered By: Natividad Gregory on 04-03-2023 Nucleated RBC Auto Ql (Bld) 0.3 /100{WBC} 0-0.5 [facility] Platelet mean volume Auto (B ld) [Entitic vol]Ordered By: Natividad Gregory on 04-03-2023 Platelet mean volume (Bld) [Entitic vol] 7.0 fL 6.3-10.7 [facility] Platelets Auto (Bld) [#/Vol] Ordered By: Natividad Gregory on 04-03-2023 Platelets (Bld) [#/Vol] 424 10*3/uL 150-450 [facility] Protein [Mass/volume] in Ser um or PlasmaOrdered By: Natividad Gregory on 04-03-2023 Protein [Mass/Vol] 6.1 g/dL 6.4-8.9 [facility] RBC Auto (Bld) [#/Vol]Ordere d By: Natividad Gregory on 04-03-2023 RBC (Bld) [#/Vol] 4.02 10*6/uL 3.60-5.00 [facility] Serum or plasma albumin/glob ulin mass ratioOrdered By: Natividad Gregory on 04-03-2023 Albumin/Globulin [Mass ratio] 1.5 {ratio} [facility] Sodiumon 04-03-2023 Sodium [Moles/Vol] 124 mmol/L Off scale low 136-145 [facility] Comment on above: Result Comment: Crit ical Result Called to and read back by: SAMMIE GOULD at: 04/03/2023 22:42:55 by:[email or web address] PERFORMED BY: [place] [address] PATHOLOGIST S[employer]IOR BUSINESS OBJECTS DEVELOPER GOSIA MCADAMS M.D. Performed By: #### N A #### [facility] [address] [place] [address] WBC Auto (Bld) [#/Vol]Ordere d By: Natividad Gregory on 04-03-2023 WBC (Bld) [#/Vol] 10.6 10*3/uL 3.8-11.6 [facility] Basic Metabolic Panelon 03-23 Anion gap [Moles/Vol] 12.8 mmol/L Normal 6.0-15.0 [facility] Comment on above: Performed By: #### H EPATIC, LIPASE, CBC, BMP, HS TROP #### [facility] [address] [place] [address] Calcium [Mass/Vol] 8.8 mg/dL Normal 8.6-10.3 [facility] Comment on above: Performed By: #### H EPATIC, LIPASE, CBC, BMP, HS TROP #### [facility] [address] Chloride [Moles/Vol] 81 mmol/L Low 98-107 [facility] Comment on above: Performed By: #### H EPATIC, LIPASE, CBC, BMP, HS TROP #### [facility] [address] CO2 [Moles/Vol] 26.3 mmol/L Normal 21.0-31.0 [facility] Comment on above: Performed By: #### H EPATIC, LIPASE, CBC, BMP, HS TROP #### [facility] [address] Creatinine [Mass/Vol] 0.59 mg/dL Low 0.60-1.20 [facility] Comment on above: Performed By: #### H EPATIC, LIPASE, CBC, BMP, HS TROP #### [address] Creatinine Clr Calc Pharmacy 42.94 [facility] Comment on above: Performed By: #### H EPATIC, LIPASE, CBC, BMP, HS TROP #### [address] GFR/1.73 sq M.predicted MDRD (S/P/Bld) [Vol rate/Area] mL/min/{1.73_m2} [facility] Comment on above: Performed By: #### H EPATIC, LIPASE, CBC, BMP, HS TROP #### [address] Glucose [Mass/Vol] 122 mg/dL High 70-100 [facility] Comment on above: Result Comment: [place] Glucose Reference Range is dependent on time and content of last meal. Glucose of more than 200 mg/dL in a nonstressed, ambulatory subject supports the diagnosis of Diabetes Mellitus. ADA recommended reference range Performed By: #### H EPATIC, LIPASE, CBC, BMP, HS TROP #### [facility] [address] Potassium [Moles/Vol] 3.1 mmol/L Low 3.5-5.1 [facility] Comment on above: Performed By: #### H EPATIC, LIPASE, CBC, BMP, HS TROP #### [facility] [address] [place] [address] Sodium [Moles/Vol] 117 mmol/L Off scale low 136-145 [facility] Comment on above: Result Comment: Crit ical Result Called to and read back by: GERMAIN BEAUCHAMP at: 04/02/2023 21:52:44 by:[id number] Performed By: #### H EPATIC, LIPASE, CBC, BMP, HS TROP #### [facility] [address] Urea nitrogen [Mass/Vol] 7 mg/dL Normal 7-25 [facility] Comment on above: Performed By: #### H EPATIC, LIPASE, CBC, BMP, HS TROP #### [facility] [address] [place] [address] Magnesiumon 04-02-2023 Magnesium [Mass/Vol] 1.9 mg/dL Normal 1.9-2.7 [facility] Comment on above: Performed By: #### H EPATIC, LIPASE, CBC, BMP, HS TROP #### [facility] [address] [place] [address] Magnesium [Mass/volume] in S willa or PlasmaOrdered By: Natividad Gregory on 04-02-2023 Magnesium [Mass/Vol] 1.9 mg/dL 1.9-2.7 [facility] No Panel InformationOrdered By: Natividad Gregory on 04-02-2023 Urine Osmolality 298 mosm 250-900 [facility] Osmolality, Urineon 04-02-19 24 Osmolality, Urine 298 mosm Normal 250-900 [facility] Comment on above: Result Comment: PERF ORMED BY: [place] [address] PATHOLOGIST S[employer]IOR BUSINESS OBJECTS DEVELOPER GOSIA MCADAMS M.D. Performed By: #### H EPATIC, LIPASE, CBC, BMP, HS TROP #### [facility] [address] [place] [address] Sodium [Moles/volume] in Uri neOrdered By: Natividad Gregory on 04-02-2023 Sodium (U) [Moles/Vol] 79 mmol/L [facility] Comment on above: No reference range e stablished Sodium, Urine (Random)on Sodium (U) [Moles/Vol] 79 mmol/L Normal [facility] Comment on above: Result Comment: No r eference range established PERFORMED BY: [place] [address] PATHOLOGIST S[employer]IOR BUSINESS OBJECTS DEVELOPER GOSIA MCADAMS M.D. Performed By: #### H EPATIC, LIPASE, CBC, BMP, HS TROP #### [address] Thyroid Stimulating Hormoneo n 04-02-2023 TSH Qn 5.76 m[IU]/L High 0.45-5.33 [facility] Comment on above: Result Comment: PERF ORMED BY: [place] [address] PATHOLOGIST S[employer]IOR BUSINESS OBJECTS DEVELOPER GOSIA MCADAMS M.D. Performed By: #### H EPATIC, LIPASE, CBC, BMP, HS TROP #### [facility] [address] [place] [address] Thyrotropin [Units/volume] i n Serum or PlasmaOrdered By: Natividad Greogry on 04-02-2023 TSH Qn 5.76 m[IU]/L 0.45-5.33 [facility] [facility] 01-11-2023 Follow-up visit [id number] Hiram Madrid 1935 F Date Provider Department Center 01/11/2023 [facility] GASPAR [facility] Family History Problem Relation Age of Onset Hypertension Mother Lupus Mother Coronary artery disease Mother Heart attack Mother Hypertension Father Aneurysm Father Coronary artery disease Father Hypertension Sister Lupus Sister Family Status - Relation Status Age at Mother Father Sister Level of Service:65172 [place] OFFICE/OUTPATIENT ESTABLISHED MOD MDM 30-39 MIN Normal [facility] Lab Reportson 12-23-2022 Lab Reports [id number] [facility] Urology Office/Clinic Noteon 12-23-2022 Urology Office/Clinic [...] Pt presented to ER due to syncope. [place] was found incidentally on CT. CT AP [...] Contact Information ABHISHEK NOONAN, MIKAYLA Pereira, URL [address] [place] [address] [phone] Additional Instructions: 6 mos w/ renal fxn (per PCP) Patient Education Hydronephrosis Documentation recorded by the ananth Gan accurately reflects the services(s) I performed and decisions made by me. Authenticated by Mikayla Weiss PA-C on 12/23/2022 12:13:28. IJacquie, personally scribed for Mikayla Weiss PA-C on [...] Tab losartan 100 mg Tab Potassium Chloride (Qmg-Dfqx-Lbh 10), Oral, BID pravastatin 80 mg Tab [...] virus vaccine, (more content not included)... Normal [facility] Comment on [...] Urnls Dip Stick Auto w/o Microscopy POC 19633 US Renal -- Results Pending -- Please visit your patient portal for your results or contact your primary care physician. Your Care Team Attending Physician - MIKAYLA WEISS PA-C Primary Care Physician - Mami Daniels MD This Is Your Medications List ciprofloxacin (Cipro 250 mg Tab) Contact prescribing physician if questions or concerns amlodipine (amLODIPine 10 mg Tab) aspirin (aspirin 81 mg oral capsule) carvedilol hydrochlorothiazide levothyroxine (levothyroxine 88 mcg (0.088 mg) Tab) losartan (losartan 100 mg Tab) potassium chloride (Potassium Chloride (Uml-Lrig-Zpv 10)) pravastatin (pravastatin 80 mg Tab) Procedures Performed Appendectomy, Bilateral salpingo-oophorectomy, Cataract extraction and insertion of intraocular lens, Cholecystectomy, Colonoscopy, Procedure on back, Tonsillectomy. Discharge Vitals Blood Pressure 124/84 Height 155 cm Height 61 in Weight 64.8 kg Weight 142.56 lb BMI 26.97 What to do next Scheduled Follow-Up Appointments June. 2023 9:30 AM EDT With: MIKAYLA WEISS PA-C Where: [facility] Patient Educationon 12-23-19 Patient Education Urology Hydronephrosis [...] Follow these instructions at home: ? Take kkve-nzq-aiykrju and prescription medicines only as told by [...] provider. Document Revised: 05/26/2020 Document Reviewed: 05/26/2020 [employer] Patient Education ? 2022 L2C. Normal [facility] RAD - Ultrasound Reporton RAD - Ultrasound Report [id number] 0TIFF Normal [facility] Reminderson 12-22-2022 Reminders - From: Jacquie Gan To: ERIN - Recalls Abhishek; Sent: 12/22/2022 12:30:05 EDT Show up: 05/23/2023 12:30:00 EDT Subject: JAC and BUN/Creatinine prior to appt Reminder Message Please Remember to:_have pt schedule JAC prior to appt. Please look for BUN/Cr labs from PCP. If unable to locate recent labs, send pt order to complete this. Normal [facility] Orders Onlyon 10-25-2022 Orders Only [id number] Hiram Madrid 1935 F Date Provider Department Center 10/25/2022 LESLY GASPAR SONIA Winkler [facility] Family History Problem Relation Age of Onset Hypertension Mother Lupus Mother Coronary artery disease Mother Heart attack Mother Hypertension Father Aneurysm Father Coronary artery disease Father Hypertension Sister Lupus Sister Family Status - Relation Status Age at Mother Father Sister Normal [facility] 37on 10-14-2022 37 Increase coreg/carvedilol to 25 mg twice a day- you have 12.5 mg tabs now so take 2 twice a day until this bottle is gone- your next refill will be the higher dose of 25 mg bid. Have labs drawn Normal [facility] Office Visiton 10-14-2022 Follow-up visit [id number] Hiram Madrid 1935 F Date Provider Department Center 10/14/2022 LESLY GASPAR SONIA [facility] Family History Problem Relation Age of Onset Hypertension Mother Lupus Mother Coronary artery disease Mother Heart attack Mother Hypertension Father Aneurysm Father Coronary artery disease Father Hypertension Sister Lupus Sister Family Status - Relation Status Age at Mother Father Sister Level of Service:89301 [place] OFFICE/OUTPATIENT ESTABLISHED MOD MDM 30-39 MIN Normal [facility] Consent for Procedure/Surger yon 09-07-2022 Consent for Procedure/Surgery [id number]#1. 00CD:127 [facility] Ambulatory Visit Summaryon 0 09-06-2022 Ambulatory Visit Summary HIRAM MADRID :1935 Visit Date:09/06/2022 Ambulatory Visit Instructions Your Diagnosis Foreign body in bladder Hydronephrosis, right Ureteral stenosis Your Care Team Attending Physician - Raymond HARRISON MD Primary Care Physician - Mami Daniels MD This Is Your Medications List ciprofloxacin (Cipro 250 mg Tab) Contact prescribing physician if questions or concerns amlodipine (amLODIPine 10 mg Tab) aspirin (aspirin 81 mg oral capsule) carvedilol hydrochlorothiazide levothyroxine (levothyroxine 88 mcg (0.088 mg) Tab) losartan (losartan 100 mg Tab) potassium chloride (Potassium Chloride (Mej-Idim-Wkv 10)) pravastatin (pravastatin 80 mg Tab) Procedures [...] Follow these instructions at home: ? Take cbuv-ndc-dsoflab and prescription medicines only as told by [...] provider. Document Revised: 05/26/2020 Document Reviewed: 05/26/2020 [employer] Patient Education ? 2022 L2C. [facility] Urology Office/Clinic Noteon 09-06-2022 Urology Office/Clinic Note [...] [facility] [address], [place] [address]- Additional Instructions: 3 mos no labs Patient [...] Tab losartan 100 mg Tab Potassium Chloride (Hnz-Uddn-Cdx 10), Oral, BID pravastatin 80 mg Tab [...] inactivated 12/06/2016 Rec (more content not included)... [facility] Comment on above: Result Comment: Elec tronically Signed By: Raymond HARRISON MD\.br\Date and Time Signed: 09/06/22 13:02 EDT\.br\Electronically Co-Signed By: Jsoefa Stewart\.br\Date and Time Co-Signed: 09/06/22 13:01 EDT Operative Reporton Operative Report [id number] CD:127 [facility] RAD - MISCon 08-12-2022 RAD - MISC [id number] CD:127 [facility] Ambulatory Visit Summaryon 0 08-10-2022 Ambulatory Visit Summary HIRAM MADRID :1935 Visit Date:08/10/2022 Ambulatory Visit Instructions Your Diagnosis Hydronephrosis, right Aspirin long-term use Tests Performed Urnls Dip Stick Auto w/o Microscopy POC 24219 Your Care Team Attending Physician - Raymond HARRISON MD Primary Care Physician - Mami Daniels MD This Is Your Medications List Contact prescribing physician if questions or concerns amlodipine (amLODIPine 10 mg Tab) aspirin (aspirin 81 mg oral capsule) carvedilol hydrochlorothiazide levothyroxine (levothyroxine 88 mcg (0.088 mg) Tab) losartan (losartan 100 mg Tab) potassium chloride (Potassium Chloride (Edf-Gqua-Bja 10)) pravastatin (pravastatin 80 mg Tab) Procedures [...] Eller When: Where: [facility] [address] , [place] [address]- Medications What How Much When Instructions Unchanged [...] or concerns Unchanged potassium chloride (Potassium Chloride (Qfx-Nroo-Noj 10)) 2 times a day Contact prescribing physician if questions or concerns Unchanged pravastatin (pravastatin 80 mg Tab) 30 EA, TAKE 1 TABLET BY MOUTH ONCE DAILY Contact prescribing physician if questions or concerns Test Results Urnls Dip Stick Auto w/o Microscopy POC 39835 (08/10/2022) Bilirubin Urine Dipstick - Negative Blood Urine Dipstick - Negative Glucose Urine Dipstick - Negative Ketones Urine Dipstick - Negative Leukocytes Urine Dipstick - Trace Nitrite Urine Dipstick - Negative Protein Urine Dipstick - Negative Specific [place] Urine Dipstick - 1.025 Urine Appearance Urine [...] what caus (more content not included)... Normal [facility] Ambulatory Visit Summary HIRAM MADRID :1935 Visit Date:08/10/2022 Ambulatory Visit Instructions Your Diagnosis Hydronephrosis, right Aspirin long-term use Tests Performed Urnls Dip Stick Auto w/o Microscopy POC 36154 Your Care Team Attending Physician - Raymond HARRISON MD Primary Care Physician - Mami Daniels MD This Is Your Medications List Contact prescribing physician if questions or concerns amlodipine (amLODIPine 10 mg Tab) aspirin (aspirin 81 mg oral capsule) carvedilol hydrochlorothiazide levothyroxine (levothyroxine 88 mcg (0.088 mg) Tab) losartan (losartan 100 mg Tab) potassium chloride (Potassium Chloride (Iva-Ivkh-Csb 10)) pravastatin (pravastatin 80 mg Tab) Procedures [...] When: Where: [facility] [address], [place] [address]- Medications What How Much When Instructions Unchanged [...] or concerns Unchanged potassium chloride (Potassium Chloride (Fnt-Phqk-Hka 10)) 2 times a day Contact prescribing physician if questions or concerns Unchanged pravastatin (pravastatin 80 mg Tab) 30 EA, TAKE 1 TABLET BY MOUTH ONCE DAILY Contact prescribing physician if questions or concerns Test Results Urnls Dip Stick Auto w/o Microscopy POC 67948 (08/10/2022) Bilirubin Urine Dipstick - Negative Blood Urine Dipstick - Negative Glucose Urine Dipstick - Negative Ketones Urine Dipstick - Negative Leukocytes Urine Dipstick - Trace Nitrite Urine Dipstick - Negative Protein Urine Dipstick - Negative Specific [place] Urine Dipstick - 1.025 Urine Appearance Urine [...] what caus (more content not included)... Normal [facility] Consent for Procedure/Surger yon 08-10-2022 Consent for Procedure/Surgery [id number] CD:127 Normal [facility] Formson 08-10-2022 Forms [id number] CD:127 Normal [facility] Patient Educationon 08-11-19 Patient Education [...] Follow these instructions at home: ? Take ryrv-pht-qteogiq and prescription medicines only as told by [...] provider. Document Revised: 05/26/2020 Document Reviewed: 05/26/2020 [employer] Patient Education ? 2022 [employer] Normal [facility] Urology Office/Clinic Noteon 08-10-2022 Urology Office/Clinic Note Chief Complaint Kidney stones HPI Staff New Pt follow up to [facility] on 08/05/[address] to [address] [...] yo female new pt following up to [facility] ER visit on 08/05/22 due to nausea, [...] General anesthesia. 2. Aspirin long-term use (Z79.82: skilled nursing (current) use of aspirin) No other BTs. Follow-up With When Contact Information CHRISTY DUMONT, Raymond Mckeon, URL [facility] [address], [place] [address]- Additional Instructions: schedule R URS, possible laser [...] No qualifyin (more content not included)... Normal [facility] Comment on above: Result Comment: Elec tronically Signed By: CHRISTY DUMONT, Raymond Mckeon\.br\Date and Time Signed: 08/10/22 09:39 EDT\.br\Electronically Co-Signed By: Josefa Stewart\.br\Date and Time Co-Signed: 08/10/22 09:38 EDT XR KUBon 08-09-2022 XR KUB [facility] [address] [address] XRay Report Signed Patient: Hiram Madrid MR#: [id number] : 1935 Acct:[id number] Age/Sex: 86 / F ADM Date: 08/09/22 Loc: XD Room: Type: [facility] Attending Dr: Raymond Harrison MD Copies to: [...] SEEN. Impression dictated by: Kameron Lopez Jr., DYouOYou08/09/2022 3:58 PM Dictation Location: [place] [address] Transcribed By: [facility] 08/09/22 1558 Dictated By: Kameron Lopez Jr, DO 08/09/22 1555 Signed By: 08/09/22 1558 [facility] CT abdomen pelvis wo conon 0 08-06-2022 CT abdomen pelvis wo [facility] Main [address] [address] [address] Scan Report Signed Patient: Hiram Madrid MR#: [id number] : 1935 Acct:[id number] Age/Sex: 86 / F ADM Date: 08/05/22 Loc: ER Room: Type: [facility] ER Attending Dr: Copies to: [...] Faye Wyman M.D.08/06/2022 8:43 AM Dictation Location: [place] [address] Transcribed By: DORETHA 08/06/22842 Dictated By: Faye Wyman MD 08/06/22829 Signed By: 08/06/22842 Normal [facility] Alanine aminotransferase [En zymatic activity/volume] in Serum or PlasmaOrdered By: Camacho Ladd on 08-05-2022 ALT [Catalytic activity/Vol] 16 U/L 7-52 [facility] Albumin [Mass/volume] in Ser um or Plasma by Bromocresol green (BCG) dye binding methoOrdered By: Camacho Ladd on 08-05-2022 Albumin BCG dye [Mass/Vol] 4.4 g/dL 3.5-5.7 [facility] Alkaline phosphatase [Enzyma tic activity/volume] in Serum or PlasmaOrdered By: Camacho Ladd on 08-05-2022 ALP [Catalytic activity/Vol] 61 U/L 34-104 [facility] Aspartate aminotransferase [ Enzymatic activity/volume] in Serum or PlasmaOrdered By: Camacho Ladd on 08-05-2022 AST [Catalytic activity/Vol] 21 U/L 13-39 [facility] Automated erythrocytes count in urine sediment (number/area)Ordered By: Camacho Ladd on 08-05-2022 RBC Auto (Urine sed) [#/Area] 0-1 [HPF] 0-4 [facility] Automated leukocytes count i n urine sediment (number/area)Ordered By: Camacho Ladd on 08-05-2022 WBC Auto (Urine sed) [#/Area] 1-2 [HPF] 0-4 [facility] Basic Metabolic Panelon 07-21 Anion gap [Moles/Vol] 17.8 mmol/L High 6.0-15.0 [facility] Comment on above: Performed By: #### H EPATIC, LIPASE, CBC, BMP, HS TROP #### [address] Calcium [Mass/Vol] 9.7 mg/dL Normal 8.6-10.3 [facility] Comment on above: Performed By: #### H EPATIC, LIPASE, CBC, BMP, HS TROP #### [facility] [address] Chloride [Moles/Vol] 87 mmol/L Low 98-107 [facility] Comment on above: Performed By: #### H EPATIC, LIPASE, CBC, BMP, HS TROP #### [facility] [address] CO2 [Moles/Vol] 23.2 mmol/L Normal 21.0-31.0 [facility] Comment on above: Performed By: #### H EPATIC, LIPASE, CBC, BMP, HS TROP #### [facility] [address] Creatinine [Mass/Vol] 1.03 mg/dL Normal 0.60-1.20 [facility] Comment on above: Performed By: #### H EPATIC, LIPASE, CBC, BMP, HS TROP #### [address] Creatinine Clr Calc Pharmacy 35.13 [facility] Comment on above: Performed By: #### H EPATIC, LIPASE, CBC, BMP, HS TROP #### [address] GFR/1.73 sq M.predicted MDRD (S/P/Bld) [Vol rate/Area] 53.284 mL/min/{1.73_m2} [facility] Comment on above: Performed By: #### H EPATIC, LIPASE, CBC, BMP, HS TROP #### [address] Glucose [Mass/Vol] 156 mg/dL High 70-100 [facility] Comment on above: Result Comment: [place] Glucose Reference Range is dependent on time and content of last meal. Glucose of more than 200 mg/dL in a nonstressed, ambulatory subject supports the diagnosis of Diabetes Mellitus. ADA recommended reference range Performed By: #### H EPATIC, LIPASE, CBC, BMP, HS TROP #### [facility] [address] Potassium [Moles/Vol] 3.0 mmol/L Low 3.5-5.1 [facility] Comment on above: Performed By: #### H EPATIC, LIPASE, CBC, BMP, HS TROP #### [facility] [address] Sodium [Moles/Vol] 125 mmol/L Low 136-145 [facility] Comment on above: Performed By: #### H EPATIC, LIPASE, CBC, BMP, HS TROP #### [facility] [address] Urea nitrogen [Mass/Vol] 12 mg/dL Normal 7-25 [facility] Comment on above: Performed By: #### H EPATIC, LIPASE, CBC, BMP, HS TROP #### [facility] [address] Basophils Auto (Bld) [#/Vol] Ordered By: Camacho Ladd on 08-05-2022 Basophils (Bld) [#/Vol] 0.1 10*3/uL 0.0-0.2 [facility] Basophils/100 WBC Auto (Bld) Ordered By: Camacho Ladd on 08-05-2022 Basophils/100 WBC (Bld) 0.4 % . F [facility] Bilirubin Test strip Ql (U)O rdered By: Camacho Ladd on 08-05-2022 Bilirubin Ql (U) Negative Negative [facility] Bilirubin.direct [Mass/volum e] in Serum or PlasmaOrdered By: Camacho Ladd on 08-05-2022 Bilirubin.direct [Mass/Vol] 0.10 mg/dL 0.03-0.18 [facility] Bilirubin.total [Mass/volume ] in Serum or PlasmaOrdered By: Camacho Ladd on 08-05-2022 Bilirubin [Mass/Vol] 0.7 mg/dL 0.3-1.0 [facility] Calcium [Mass/volume] in Ser um or PlasmaOrdered By: Camacho Ladd on 08-05-2022 Calcium [Mass/Vol] 9.7 mg/dL 8.6-10.3 [facility] Carbon dioxide, total [Moles /volume] in Serum or PlasmaOrdered By: Camacho Ladd on 08-05-2022 CO2 [Moles/Vol] 23.2 mmol/L 21.0-31.0 [facility] Chloride [Moles/volume] in S willa or PlasmaOrdered By: Camacho Ladd on 08-05-2022 Chloride [Moles/Vol] 87 mmol/L 98-107 [facility] Color Auto (U)Ordered By: Agustin Ladd on 08-05-2022 Color (U) Yellow Yellow [facility] Complete Blood Count Auto Di ffon 08-05-2022 Basophils (Bld) [#/Vol] 0.1 10*3/uL Normal 0.0-0.2 [facility] Comment on above: Result Comment: PERF ORMED BY: [place] [address] PATHOLOGIST [employer] DEVELOPER GOSIA MCADAMS M.D. Performed By: #### H EPATIC, LIPASE, CBC, BMP, HS TROP #### [facility] [address] Basophils/100 WBC (Bld) 0.4 % Normal . [facility] Comment on above: Performed By: #### H EPATIC, LIPASE, CBC, BMP, HS TROP #### [facility] [address] Eosinophils (Bld) [#/Vol] 0.1 10*3/uL Normal 0.0-0.45 [facility] Comment on above: Performed By: #### H EPATIC, LIPASE, CBC, BMP, HS TROP #### [facility] [address] [place] [address] [place] Eosinophils/100 WBC (Bld) 0.6 % Normal . [facility] Comment on above: Performed By: #### H EPATIC, LIPASE, CBC, BMP, HS TROP #### [facility] [address] Erythrocyte distribution width (RBC) [Ratio] 13.6 % Normal 11.9-15.3 [facility] Comment on above: Performed By: #### H EPATIC, LIPASE, CBC, BMP, HS TROP #### [address] Hematocrit (Bld) [Volume fraction] 37.3 % Normal 34.0-46.4 [facility] Comment on above: Performed By: #### H EPATIC, LIPASE, CBC, BMP, HS TROP #### [address] Hemoglobin (Bld) [Mass/Vol] 13.0 g/dL Normal 11.8-15.4 [facility] Comment on above: Performed By: #### H EPATIC, LIPASE, CBC, BMP, HS TROP #### [address] Lymphocytes (Bld) [#/Vol] 3.1 10*3/uL Normal 1.00-4.8 [facility] Comment on above: Performed By: #### H EPATIC, LIPASE, CBC, BMP, HS TROP #### [address] Lymphocytes/100 WBC (Bld) 21.9 % Normal . [facility] Comment on above: Performed By: #### H EPATIC, LIPASE, CBC, BMP, HS TROP #### [address] MCH (RBC) [Entitic mass] 31.6 pg Normal 24.7-34.3 [facility] Comment on above: Performed By: #### H EPATIC, LIPASE, CBC, BMP, HS TROP #### [address] MCV (RBC) [Entitic vol] 90.4 fL Normal 80-100 [facility] Comment on above: Performed By: #### H EPATIC, LIPASE, CBC, BMP, HS TROP #### [address] Mean Corpuscular HGB Conc 35.0 g/dL Normal 32.0-35.0 [facility] Comment on above: Performed By: #### H EPATIC, LIPASE, CBC, BMP, HS TROP #### [facility] [address] [place] [address] [place] Monocytes (Bld) [#/Vol] 1.4 10*3/uL High 0.0-0.8 [facility] Comment on above: Performed By: #### H EPATIC, LIPASE, CBC, BMP, HS TROP #### [facility] [address] [place] [address] [place] Monocytes/100 WBC (Bld) 20.58 % High 0.00-20.00 [facility] Comment on above: Result Comment: For adults in ED, MDW > 20.0 may be associated with a higher risk of sepsis during the first 12 hrs of hospital admission Performed By: #### H EPATIC, LIPASE, CBC, BMP, HS TROP #### [facility] [address] Monocytes/100 WBC (Bld) 9.6 % Normal . [facility] Comment on above: Performed By: #### H EPATIC, LIPASE, CBC, BMP, HS TROP #### [facility] [address] [place] [address] [place] Neutrophils (Bld) [#/Vol] 9.6 10*3/uL High 1.8-7.7 [facility] Comment on above: Performed By: #### H EPATIC, LIPASE, CBC, BMP, HS TROP #### [facility] [address] [place] [address] [place] Neutrophils/100 WBC (Bld) 67.5 % Normal . [facility] Comment on above: Performed By: #### H EPATIC, LIPASE, CBC, BMP, HS TROP #### [facility] [address] [place] [address] [place] NRBC% 0.1 /100{WBC} Normal 0-0.5 [facility] Comment on above: Performed By: #### H EPATIC, LIPASE, CBC, BMP, HS TROP #### [facility] [address] [place] [address] [place] Platelet mean volume (Bld) [Entitic vol] 7.2 fL Normal 6.3-10.7 [facility] Comment on above: Performed By: #### H EPATIC, LIPASE, CBC, BMP, HS TROP #### [facility] [address] [place] [address] [place] Platelets (Bld) [#/Vol] 500 10*3/uL High 150-450 [facility] Comment on above: Performed By: #### H EPATIC, LIPASE, CBC, BMP, HS TROP #### [facility] [address] [place] [address] [place] RBC (Bld) [#/Vol] 4.13 10*6/uL Normal 3.60-5.00 [facility] Comment on above: Performed By: #### H EPATIC, LIPASE, CBC, BMP, HS TROP #### [place] [address] [place] WBC (Bld) [#/Vol] 14.2 10*3/uL High 3.8-11.6 [facility] Comment on above: Performed By: #### H EPATIC, LIPASE, CBC, BMP, HS TROP #### [address] Creatinine [Mass/volume] in Serum or PlasmaOrdered By: Camacho Ladd on 08-05-2022 Creatinine [Mass/Vol] 1.03 mg/dL 0.60-1.20 [facility] Dipstick and Microscopicon 0 08-05-2022 Appearance (U) Cloudy Critically abnormal Clear [facility] Comment on above: Order Comment: Name Collection Type:: Clean-Voided Midstream Performed By: #### A DDONUAPLUS #### [address] Bacteria,Urine None Seen Normal None Seen [facility] Comment on above: Order Comment: Name Collection Type:: Clean-Voided Midstream Performed By: #### A DDONUAPLUS #### [address] Bilirubin,Urine Negative Normal Negative [facility] Comment on above: Order Comment: Name Collection Type:: Clean-Voided Midstream Performed By: #### A DDONUAPLUS #### [facility] [address] [place] [address] [place] Color (U) Yellow Normal Yellow [facility] Comment on above: Order Comment: Name Collection Type:: Clean-Voided Midstream Performed By: #### A DDONUAPLUS #### [facility] [address] [place] [address] [place] Glucose Ql (U) Normal Normal Normal [facility] Comment on above: Order Comment: Name Collection Type:: Clean-Voided Midstream Performed By: #### A DDONUAPLUS #### [facility] [address] [place] [address] [place] Hyaline Casts,Urine None Seen Normal 0-8 [facility] Comment on above: Order Comment: Name Collection Type:: Clean-Voided Midstream Result Comment: PERF ORMED BY: [place] [address] PATHOLOGIST SENIOR BUSINESS OBJECTS DEVELOPER GOSIA MCADAMS M.D. Performed By: #### A DDONUAPLUS #### [facility] [address] [place] [address] [place] Ketones Ql (U) Negative Normal Negative [facility] Comment on above: Order Comment: Name Collection Type:: Clean-Voided Midstream Performed By: #### A DDONUAPLUS #### [facility] [address] [place] [address] [place] Leukocyte esterase Test strip Ql (U) 1+ High Negative [facility] Comment on above: Order Comment: Name Collection Type:: Clean-Voided Midstream Performed By: #### A DDONUAPLUS #### [facility] [address] [place] [address] [place] Nitrite,Urine Negative Normal Negative [facility] Comment on above: Order Comment: Name Collection Type:: Clean-Voided Midstream Performed By: #### A DDONUAPLUS #### [facility] [address] [place] [address] [place] Occult Blood,Urine Negative Normal Negative [facility] Comment on above: Order Comment: Name Collection Type:: Clean-Voided Midstream Result Comment: PERF ORMED BY: [place] [address] PATHOLOGIST SENIOR BUSINESS OBJECTS DEVELOPER GOSIA MCADAMS M.D. Performed By: #### A DDONUAPLUS #### [address] pH (U) 7.0 [pH] Normal 5.0-9.0 [facility] Comment on above: Order Comment: Name Collection Type:: Clean-Voided Midstream Performed By: #### A DDONUAPLUS #### [address] Protein,Urine Negative Normal Negative [facility] Comment on above: Order Comment: Name Collection Type:: Clean-Voided Midstream Performed By: #### A DDONUAPLUS #### [address] RBC LM.HPF (Urine sed) [#/Area] 0 /[HPF] Normal 0-4 [facility] Comment on above: Order Comment: Name Collection Type:: Clean-Voided Midstream Performed By: #### A DDONUAPLUS #### [address] Specificy [place],Urine 1.009 Normal 1.001-1.030 [facility] Comment on above: Order Comment: Name Collection Type:: Clean-Voided Midstream Performed By: #### A DDONUAPLUS #### [address] Squamous Epithelial Cell,Urine 0-1 Normal 0-2 [facility] Comment on above: Order Comment: Name Collection Type:: Clean-Voided Midstream Performed By: #### A DDONUAPLUS #### [address] Urobilinogen,Urine Normal Normal Normal [facility] Comment on above: Order Comment: Name Collection Type:: Clean-Voided Midstream Performed By: #### A DDONUAPLUS #### [place] [address] [place] WBC,Urine 1-2 Normal 0-4 [facility] Comment on above: Order Comment: Name Collection Type:: Clean-Voided Midstream Performed By: #### A DDONUAPLUS #### [address] ECG 12 lead ECGon 08-05-2022 ECG 12 lead ECG [facility] [place] [address] [place] [address] Electrocardiograph Report Signed Patient: Hiram Madrid MR#: [id number] : 1935 Acct:[id number] Age/Sex: 86 / F ADM Date: 08/05/22 Loc: ER Room: Type: [facility] ER Attending Dr: Ordering Provider: [...] branch block Confirmed by Camacho Ladd DO ([id number]) on 08/06/2022 1:49:12 AM Referred By: Electronically Signed By:Camacho Ladd DO Transcribed By: MUS Signed By Camacho Ladd DO [id number] Normal [facility] Eosinophils Auto (Bld) [#/Vo l]Ordered By: Camacho Ladd on 08-05-2022 Eosinophils (Bld) [#/Vol] 0.1 10*3/uL 0.0-0.45 [facility] Eosinophils/100 WBC Auto (Bl d)Ordered By: Camacho Ladd on 08-05-2022 Eosinophils/100 WBC (Bld) 0.6 % . [facility] Erythrocyte distribution wid th Auto (RBC) [Ratio]Ordered By: Camacho Ladd on 08-05-2022 Erythrocyte distribution width (RBC) [Ratio] 13.6 % 11.9-15.3 [facility] Globulin Calc (S) [Mass/Vol] Ordered By: Camacho Ladd on 08-05-2022 Globulin (S) [Mass/Vol] 2.9 g/dL F [facility] Glucose [Mass/volume] in Ser um or PlasmaOrdered By: Camacho Allison on 08-05-2022 Glucose [Mass/Vol] 156 mg/dL 70-100 [facility] Comment on above: ADA recommended refe rence rangeRandom Glucose Reference Range is dependent on time and content of last meal. Glucose of more than 200 mg/dL in a nonstressed, ambulatory subject supports the diagnosis of Diabetes Mellitus. Hematocrit Auto (Bld) [Volum e fraction]Ordered By: Camacho Ladd on 08-05-2022 Hematocrit (Bld) [Volume fraction] 37.3 % 34.0-46.4 [facility] Hemoglobin [Mass/volume] in BloodOrdered By: Camacho Ladd on 08-05-2022 Hemoglobin (Bld) [Mass/Vol] 13.0 g/dL 11.8-15.4 [facility] Hepatic Panelon 08-05-2022 Albumin [Mass/Vol] 4.4 g/dL Normal 3.5-5.7 [facility] Comment on above: Performed By: #### H EPATIC, LIPASE, CBC, BMP, HS TROP #### [facility] [address] Albumin/Globulin [Mass ratio] 1.5 {ratio} Normal [facility] Comment on above: Performed By: #### H EPATIC, LIPASE, CBC, BMP, HS TROP #### [facility] [address] [place] [address] [place] ALP [Catalytic activity/Vol] 61 U/L Normal 34-104 [facility] Comment on above: Performed By: #### H EPATIC, LIPASE, CBC, BMP, HS TROP #### [facility] [address] [place] [id number] [place] ALT [Catalytic activity/Vol] 16 U/L Normal 7-52 [facility] Comment on above: Performed By: #### H EPATIC, LIPASE, CBC, BMP, HS TROP #### [facility] [address] [place] [id number] [place] AST [Catalytic activity/Vol] 21 U/L Normal 13-39 [facility] Comment on above: Performed By: #### H EPATIC, LIPASE, CBC, BMP, HS TROP #### [facility] [address] Bilirubin [Mass/Vol] 0.7 mg/dL Normal 0.3-1.0 [facility] Comment on above: Performed By: #### H EPATIC, LIPASE, CBC, BMP, HS TROP #### [address] Bilirubin,Indirect 0.6 mg/dL Normal [facility] Comment on above: Performed By: #### H EPATIC, LIPASE, CBC, BMP, HS TROP #### [address] Bilirubin.indirect [Mass/Vol] 0.10 mg/dL Normal 0.03-0.18 [facility] Comment on above: Performed By: #### H EPATIC, LIPASE, CBC, BMP, HS TROP #### [address] Globulin (S) [Mass/Vol] 2.9 g/dL Normal [facility] Comment on above: Performed By: #### H EPATIC, LIPASE, CBC, BMP, HS TROP #### [address] Protein [Mass/Vol] 7.3 g/dL Normal 6.4-8.9 [facility] Comment on above: Performed By: #### H EPATIC, LIPASE, CBC, BMP, HS TROP #### [address] Ketones Auto test strip (U) [Mass/Vol]Ordered By: Camacho Ladd on 08-05-2022 Ketones (U) [Mass/Vol] Negative Negative [facility] - UrinalysisOrder ed By: Camacho Ladd on 08-05-2022 Hyaline casts LM Ql (Urine sed) None seen [LPF] 0-8 [facility] Leukocytes [#/volume] correc sofiya for nucleated erythrocytes in Blood by Automated counOrdered By: Camacho Ladd on 08-05-2022 WBC corrected for nucl RBC Auto (Bld) [#/Vol] 14.2 10*3/uL 3.8-11.6 [facility] Lipaseon 08-05-2022 Lipase [Catalytic activity/Vol] 23.0 U/L Normal 11.0-82.0 [facility] Comment on above: Result Comment: PERF ORMED BY: [facility] [address] [place] [address] PATHOLOGIST SENIOR BUSINESS OBJECTS DEVELOPER GOSIA MCADAMS M.D. Performed By: #### H EPATIC, LIPASE, CBC, BMP, HS TROP #### [address] Lipase [Enzymatic activity/v olume] in Serum or PlasmaOrdered By: Camacho Ladd on 08-05-2022 Lipase [Catalytic activity/Vol] 23.0 U/L 11.0-82.0 [facility] Lymphocytes Auto (Bld) [#/Vo l]Ordered By: Camacho Ladd on 08-05-2022 Lymphocytes (Bld) [#/Vol] 3.1 10*3/uL 1.00-4.8 [facility] Lymphocytes/100 WBC Auto (Bl d)Ordered By: Camacho Ladd on 08-05-2022 Lymphocytes/100 WBC (Bld) 21.9 % . [facility] MCH Auto (RBC) [Entitic mass ]Ordered By: Camacho Ladd on 08-05-2022 MCH (RBC) [Entitic mass] 31.6 pg 24.7-34.3 [facility] MCHC Auto (RBC) [Mass/Vol]Or dered By: Camacho Ladd on 08-05-2022 MCHC (RBC) [Mass/Vol] 35.0 g/dL 32.0-35.0 [facility]ir [facility] MCV Auto (RBC) [Entitic vol] Ordered By: Camacho Ladd on 08-05-2022 MCV (RBC) [Entitic vol] 90.4 fL 80-100 F [facility] Monocyte distribution width [Entitic volume] in Blood by AutomatedOrdered By: Camacho Ladd on 08-05-2022 Monocyte distribution width Auto (Bld) [Entitic vol] 20.58 % 0.00-20.00 [facility] Comment on above: For adults in ED, MD W > 20.0 may be associated with a higher risk of sepsis during the first 12 hrs of hospital admission Monocytes Auto (Bld) [#/Vol] Ordered By: Camacho Ladd on 08-05-2022 Monocytes (Bld) [#/Vol] 1.4 10*3/uL 0.0-0.8 [facility] Monocytes/100 WBC Auto (Bld) Ordered By: Camacho Ladd on 08-05-2022 Monocytes/100 WBC (Bld) 9.6 % . F [facility] Neutrophils Auto (Bld) [#/Vo l]Ordered By: Camacho Ladd on 08-05-2022 Neutrophils (Bld) [#/Vol] 9.6 10*3/uL 1.8-7.7 [facility] Neutrophils/100 WBC Auto (Bl d)Ordered By: Camacho Ladd on 08-05-2022 Neutrophils/100 WBC (Bld) 67.5 % . [facility] Nitrite Test strip Ql (U)Ord ered By: Camacho Ladd on 08-05-2022 Nitrite Ql (U) Negative Negative [facility] No Panel InformationOrdered By: Camacho Ladd on 08-05-2022 Estimated GFR (CKD-EPI) 53.284 mL/Min [facility] Creatinine Clearance (Chem 35.13 [facility] Nucleated erythrocytes [Pres ence] in Blood by Automated countOrdered By: Camacho Ladd on 08-05-2022 Nucleated RBC Auto Ql (Bld) 0.1 /100{WBC} 0-0.5 [facility] Platelet mean volume Auto (B ld) [Entitic vol]Ordered By: Camacho Ladd on 08-05-2022 Platelet mean volume (Bld) [Entitic vol] 7.2 fL 6.3-10.7 [facility] Platelets Auto (Bld) [#/Vol] Ordered By: Camacho Ladd on 08-05-2022 Platelets (Bld) [#/Vol] 500 10*3/uL 150-450 [facility] Potassium [Moles/volume] in Serum or PlasmaOrdered By: Camacho Ladd on 08-05-2022 Potassium [Moles/Vol] 3.0 mmol/L 3.5-5.1 [facility] Protein Auto test strip (U) [Mass/Vol]Ordered By: Camacho Ladd on 08-05-2022 Protein (U) [Mass/Vol] Negative Negative [facility] Protein [Mass/volume] in Ser um or PlasmaOrdered By: Camacho Ladd on 08-05-2022 Protein [Mass/Vol] 7.3 g/dL 6.4-8.9 [facility] RBC Auto (Bld) [#/Vol]Ordere d By: Camacho Ladd on 08-05-2022 RBC (Bld) [#/Vol] 4.13 10*6/uL 3.60-5.00 [facility] Serum or plasma albumin/glob ulin mass ratioOrdered By: Camacho Ladd on 08-05-2022 Albumin/Globulin [Mass ratio] 1.5 {ratio} [facility] Serum or plasma anion gap de terminationOrdered By: Camacho Ladd on 08-05-2022 Anion gap [Moles/Vol] 17.8 mmol/L 6.0-15.0 [facility] Serum or plasma non-glucuron idated bilirubin measurement (mass/volume)Ordered By: Camacho Ladd on 08-05-2022 Bilirubin.indirect [Mass/Vol] 0.6 mg/dL [facility] Sodium [Moles/volume] in Ser um or PlasmaOrdered By: Camacho Ladd on 08-05-2022 Sodium [Moles/Vol] 125 mmol/L 136-145 [facility] Specific gravity Auto test s trip (U) [Rel density]Ordered By: Camacho Ladd on 08-05-2022 Specific gravity (U) [Rel density] 1.009 1.001-1.030 [facility] Squamous epithelial cells de tection in urine sediment by light microscopyOrdered By: Camacho Ladd on 08-05-2022 Epithelial cells.squamous LM Ql (Urine sed) 0-1 [HPF] 0-2 [facility] Troponin I High Sensitivityo n 08-05-2022 Troponin I High Sensitivity 7.7 pg/mL Normal 0.0-15.0 [facility] Comment on above: Result Comment: PERF ORMED BY: [facility] [address] [place] [address] PATHOLOGIST SENIOR BUSINESS OBJECTS DEVELOPER GOSIA MCADAMS M.D. Performed By: #### H EPATIC, LIPASE, CBC, BMP, HS TROP #### [facility] [address] Troponin I.cardiac [Mass/vol ume] in Serum or Plasma by Detection limit <= 0.01 ng/Ordered By: Camacho Ladd on 08-05-2022 Troponin I.cardiac DL <= 0.01 ng/mL [Mass/Vol] 7.7 pg/mL 0.0-15.0 [facility] Urea nitrogen [Mass/volume] in Serum or PlasmaOrdered By: Camacho Ladd on 08-05-2022 Urea nitrogen [Mass/Vol] 12 mg/dL 7-25 [facility] Urine bacteria detection by automated methodOrdered By: Camacho Ladd on 08-05-2022 Bacteria Auto Ql (U) None seen None Seen [facility] Urine clarity by refractomet ry automatedOrdered By: Camacho Ladd on 08-05-2022 Clarity Refractometry automated (U) Cloudy Clear [facility] Urine glucose measurement by automated test strip (mass/volume)Ordered By: Camacho Ladd on 08-05-2022 Glucose Auto test strip (U) [Mass/Vol] Normal mg/dL Normal [facility] Urine hemoglobin detection b y automated test stripOrdered By: Camacho Ladd on 08-05-2022 Hemoglobin Auto test strip Ql (U) Negative Negative [facility] Urine leukocyte esterase det ection by automated test stripOrdered By: Camacho Ladd on 08-05-2022 Leukocyte esterase Auto test strip Ql (U) 1+ Negative [facility] Urobilinogen Auto test strip (U) [Mass/Vol]Ordered By: Camacho Ladd on 08-05-2022 Urobilinogen (U) [Mass/Vol] Normal mg/dL Normal [facility] WBC Auto (Bld) [#/Vol]Ordere d By: Camacho Allison on 08-05-2022 WBC (Bld) [#/Vol] 14.2 10*3/uL 3.8-11.6 [facility] pH Auto test strip (U)Ordere d By: Camacho Ladd on 08-05-2022 pH (U) 7.0 [pH] 5.0-9.0 [facility] BNPon 06-13-2022 Natriuretic peptide B (Bld) [Mass/Vol] 142.0 pg/mL Normal <=1,800.0 [facility] Comment on above: Performed By: #### T SH, BMP #### [facility] [address] [place] [address] Dr. Tasha Dodson CBC AUTO DIFFon 06-13-2022 BASO # 0.1 103/ul Normal 0.0-0.1 [facility] Comment on above: Performed By: #### T SH, BMP #### [facility] [address] [place] [address] Dr. Tasha Dodson Basophils/100 WBC (Bld) 1.0 % Normal 0.2-2.0 [facility] Comment on above: Performed By: #### T SH, BMP #### [facility] [address] [place] [address] Dr. Tasha Dodson EO # 0.3 103/ul Normal 0.0-0.7 [facility] Comment on above: Performed By: #### T SH, BMP #### [facility] [address] [place] [address] Dr. Tasha Dodson Eosinophils/100 WBC (Bld) 2.6 % Normal 0.9-7.0 [facility] Comment on above: Performed By: #### T SH, BMP #### [facility] [address] [place] [address] Dr. Tasha Dodson Erythrocyte distribution width (RBC) [Ratio] 13.4 % Normal 11.0-15.0 [facility] Comment on above: Performed By: #### T SH, BMP #### [facility] [address] [place] [address] Dr. Tasha Dodson Hematocrit (Bld) [Volume fraction] 39.5 % Normal 36.0-48.0 [facility] Comment on above: Performed By: #### T SH, BMP #### [facility] [address] [place] [address] Dr. Tasha Dodson Hemoglobin (Bld) [Mass/Vol] 13.1 g/dL Normal 12.0-16.0 [facility] Comment on above: Performed By: #### T SH, BMP #### [facility] [address] [place] [address] Dr. Tasha Dodson IG # 0.07 10e3/ul Critically high 0.00-0.03 [facility] Comment on above: Performed By: #### T SH, BMP #### [facility] [address] [place] [address] Dr. Tasha Dodson IG % 0.6 % Critically high 0.0-0.5 [facility] Comment on above: Performed By: #### T SH, BMP #### [facility] [address] [place] [address] Dr. Tasha Dodson LYMPH # 2.5 103/ul Normal 1.2-3.8 [facility] Comment on above: Performed By: #### T SH, BMP #### [facility] [address] [place] [address] Dr. Tasha Dodson Lymphocytes/100 WBC (Bld) 22.9 % Normal 20.5-60.0 [facility] Comment on above: Performed By: #### T SH, BMP #### [facility] [address] [place] [address] Dr. Tasha Dodson MANUAL DIFF REQ NO Normal [facility] Comment on above: Performed By: #### T SH, BMP #### [facility] [address] [place] [address] Dr. Tasha Dodson MCH (RBC) [Entitic mass] 30.7 pg Normal 26.7-34.0 [facility] Comment on above: Performed By: #### T SH, BMP #### [facility] [address] [place] [address] Dr. Tasha Dodson MCHC (RBC) [Mass/Vol] 33.2 g/dL Normal 29.9-35.2 [facility] Comment on above: Performed By: #### T SH, BMP #### [facility] [address] [place] [address] Dr. Tasha Dodson MCV (RBC) [Entitic vol] 92.5 fL Normal 81.0-99.0 [facility] Comment on above: Performed By: #### T JESI, BMP #### [facility] [address] [place] [address] Dr. Tasha Dodson MONO # 0.8 103/ul Normal 0.3-0.8 [facility] Comment on above: Performed By: #### T JESI, BMP #### [facility] [address] [place] [address] Dr. Tasha Dodson Monocytes/100 WBC (Bld) 7.0 % Normal 1.7-12.0 [facility] Comment on above: Performed By: #### T SH, BMP #### [facility] [address] [place] [address] Dr. Tasha Dodson NEUT # 7.2 103/ul Critically high 1.4-6.5 [facility] Comment on above: Performed By: #### T JESI, BMP #### [facility] [address] [place] [address] Dr. Tasha Dodson Neutrophils/100 WBC (Bld) 65.9 % Normal 43.0-75.0 [facility] Comment on above: Performed By: #### T SH, BMP #### [facility] [address] [place] [address] Dr. Tasha Dodson Platelet mean volume (Bld) [Entitic vol] 8.0 fL Critically low 9.5-13.5 [facility] Comment on above: Performed By: #### T JESI, BMP #### [facility] [address] [place] [address] Dr. Tasha Dodson PLT 449 103/ul Normal 150-450 [facility] Comment on above: Performed By: #### T JESI, BMP #### [facility] [address] [place] [address] Dr. Tasha Dodson RBC 4.27 106/ul Normal 4.20-5.40 [facility] Comment on above: Performed By: #### T JESI, BMP #### [facility] [address] [place] [address] Dr. Tasha Dodson WBC 10.9 103/ul Normal 4.0-11.0 [facility] Comment on above: Performed By: #### T JESI, BMP #### [facility] [address] [place] [address] Dr. Tasha Dodson FREE THYROXINE INDEX T7on FTI 3.67 Normal 1.30-4.50 [facility] Comment on above: Performed By: #### T JESI, BMP #### [facility] [address] [place] [address] Dr. Tasha Dodson T3U 36.0 % Normal 30.0-39.0 [facility] Comment on above: Performed By: #### T JESI, BMP #### [facility] [address] [place] [address] Dr. Tasha Dodson T4 [Mass/Vol] 10.20 ug/dL Normal 4.80-13.90 [facility] Comment on above: Performed By: #### T JESI, BMP #### [facility] [address] [place] [address] Dr. Tasha Dodson PROF CHEM 8 (BAS METB)on Anion gap [Moles/Vol] 13.8 mmol/L Normal [facility] Comment on above: Performed By: #### T JESI, BMP #### [facility] [address] [place] [address] Dr. Tasha Dodson Calcium [Mass/Vol] 9.8 mg/dL Normal 8.5-10.1 [facility] Comment on above: Performed By: #### T SH, BMP #### [facility] [address] [place] [address] [address] Tasha Dodson Chloride [Moles/Vol] 95 mmol/L Critically low 98-107 [facility] Comment on above: Performed By: #### T SH, BMP #### [facility] [address] [place] [address] [address] Tasha Dodson CO2 [Moles/Vol] 30.5 mmol/L Normal 21.0-32.0 [facility] Comment on above: Performed By: #### T SH, BMP #### [facility] [address] [place] [address] [address] Tasha Dodson Creatinine [Mass/Vol] 0.78 mg/dL Normal 0.55-1.02 [facility] Comment on above: Performed By: #### T SH, BMP #### [facility] [address] [place] [address] Dr. Tasha Dodson EGFR-AF ICELANDIC >60 Normal >=60 [facility] Comment on above: Performed By: #### T SH, BMP #### [facility] [address] [place] [address] Dr. Tasha Dodson EGFR-NON AF ICELANDIC >60 Normal >=60 [facility] Comment on above: Performed By: #### T SH, BMP #### [facility] [address] [place] [address] Dr. Tasha Dodson Glucose [Mass/Vol] 108 mg/dL Critically high 74-106 [facility] Comment on above: Performed By: #### T SH, BMP #### [facility] [address] [place] [address] Dr. Tasha Dodson Potassium [Moles/Vol] 3.3 mmol/L Critically low 3.5-5.1 [facility] Comment on above: Performed By: #### T SH, BMP #### [facility] [address] [place] [address] Dr. Tasha Dodson Sodium [Moles/Vol] 136 mmol/L Normal 136-145 [facility] Comment on above: Performed By: #### T SH, BMP #### [facility] [address] [place] [address] Dr. Tasha Dodson Urea nitrogen [Mass/Vol] 11.0 mg/dL Normal 7.0-18.0 [facility] Comment on above: Performed By: #### T SH, BMP #### [facility] [address] [place] [address] Dr. Tasha Dodson Urea nitrogen/Creatinine [Mass ratio] 14.1 mg/mg Normal [facility] Comment on above: Performed By: #### T SH, BMP #### [facility] [address] [place] [address] Dr. Tasha Dodson TSHon 06-13-2022 TSH 2.583 uIU/mL Normal 0.358-3.740 [facility] Comment on above: Performed By: #### T SH, BMP #### [facility] [address] [place] [address] Dr. Tasha Dodson UA (CLEAN/CATCH) STENCILING MACHINE TENDER/MICRO I F IND.on 06-13-2022 Bilirubin Ql (U) Negative Normal NEGATIVE [facility] Comment on above: Performed By: #### T JESI, BMP #### [facility] [address] [place] [address] Dr. Tasha Dodson Clarity (U) CLEAR Normal CLEAR [facility] Comment on above: Performed By: #### T SH, BMP #### [facility] [address] [place] [address] Dr. Tasha Dodson Color (U) LT. YELLOW Normal YELLOW [facility] Comment on above: Performed By: #### T SH, BMP #### [facility] [address] [place] [address] Dr. Tasha Dodson Glucose Ql (U) Negative Normal NEGATIVE [facility] Comment on above: Performed By: #### T SH, BMP #### [facility] [address] [place] [address] Dr. Tasha Dodson Hemoglobin Ql (U) Negative Normal NEGATIVE [facility] Comment on above: Performed By: #### T SH, BMP #### [facility] [address] [place] [address] Dr. Tasha Dodson Ketones Ql (U) Negative Normal NEGATIVE [facility] Comment on above: Performed By: #### T SH, BMP #### [facility] [address] [place] [address] Dr. Tasha Dodson LEUKOCYTES Negative Normal NEGATIVE [facility] Comment on above: Performed By: #### T SH, BMP #### [facility] [address] [place] [address] Dr. Tasha Dodson Nitrite Ql (U) Negative Normal NEGATIVE [facility] Comment on above: Performed By: #### T SH, BMP #### [facility] [address] [place] [address] Dr. Tasha Dodson pH (U) 7.0 [pH] Normal 5-9 [facility] Comment on above: Performed By: #### T SH, BMP #### [facility] [address] [place] [address] Dr. Tasha Dodson SPEC GRAVITY 1.010 Normal 1.005-<=1.0 25 [facility] Comment on above: Performed By: #### T SH, BMP #### [facility] [address] [place] [address] Dr. Tasha Dodson UA PROTEIN Negative Normal NEGATIVE/ TRACE [facility] Comment on above: Performed By: #### T SH, BMP #### [facility] [address] [place] [address] Dr. Tasha Dodson UR MICRO IND NOT INDICATED Normal [facility] Comment on above: Performed By: #### T SH, BMP #### [facility] [address] [place] [address] Dr. Tasha Dodson Urobilinogen Qn (U) 0.2 {Juan'U}/dL Normal 0.2 - 1. 0 [facility] Comment on above: Performed By: #### T SH, BMP #### [facility] [address] [place] [address] Dr. Tasha Dodson ECHOCARDIO M/2D COMPLETEon 0 04-18-2022 ECHOCARDIO M/2D COMPLETE Patient: HIRAM MADRIDYou Exam Date: 04/18/2022 : 1935 Gender:F Ordering : DR VALERIE DARDEN M.D. Admission #: [id number] Family : DR MAMI DANIELS . Order #: [id number] CLICK HERE TO VIEW EXAM ECHOCARDIOGRAM REPORT [...] Barragan M.D. on 04/19/2022 at 18:55 Normal [facility] Office Visiton 04-04-2022 Follow-up visit [id number] Hiram Madrid 1935 F Date Provider Department Center 04/04/2022 Yazmin-VALERIE DARDEN [facility] Family History Problem Relation Age of Onset Hypertension Mother Lupus Mother Coronary artery disease Mother Heart attack Mother Hypertension Father Aneurysm Father Coronary artery disease Father Hypertension Sister Lupus Sister Family Status - Relation Status Age at Mother Father Sister Level of Service:05743 [place] OFFICE/OUTPATIENT ESTABLISHED MOD MDM 30-39 MIN Reason for Visit and Comments: Hyperlipidemia [182] Hypertension [375658] carotid artery stenosis [Other] 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 Tasha Dodson Basophils/100 WBC (Bld) 0.6 % Normal 0.2-2.0 [facility] Comment on above: Performed By: #### C BC #### [facility] [address] [place] [address] Dr. Tasha Dodson EO # 0.1 103/ul Normal 0.0-0.7 [facility] Comment on above: Performed By: #### C BC #### [facility] [address] [place] [address] Dr. Tasha Dodson Eosinophils/100 WBC (Bld) 0.9 % Normal 0.9-7.0 [facility] Comment on above: Performed By: #### C BC #### [facility] [address] [place] [address] Dr. Tasha Dodson Erythrocyte distribution width (RBC) [Ratio] 13.0 % Normal 11.0-15.0 [facility] Comment on above: Performed By: #### C BC #### [facility] [address] [place] [address] Dr. Tasha Dodson Hematocrit (Bld) [Volume fraction] 38.5 % Normal 36.0-48.0 [facility] Comment on above: Performed By: #### C BC #### [facility] [address] [place] [address] Dr. Tasha Dodson Hemoglobin (Bld) [Mass/Vol] 13.4 g/dL Normal 12.0-16.0 [facility] Comment on above: Performed By: #### C BC #### [facility] [address] [place] [address] Dr. Tasha Dodson IG # 0.07 10e3/ul Critically high 0.00-0.03 [facility] Comment on above: Performed By: #### C BC #### [facility] [address] [place] [address] Dr. Tasha Dodson IG % 0.5 % Normal 0.0-0.5 [facility] Comment on above: Performed By: #### C BC #### [facility] [address] [place] [address] Dr. Tasha Dodson LYMPH # 2.8 103/ul Normal 1.2-3.8 [facility] Comment on above: Performed By: #### C BC #### [facility] [address] [place] [address] Dr. Tasha Dodson Lymphocytes/100 WBC (Bld) 20.5 % Normal 20.5-60.0 [facility] Comment on above: Performed By: #### C BC #### [facility] [address] [place] [address] Dr. Tasha Dodson MANUAL DIFF REQ NO Normal [facility] Comment on above: Performed By: #### C BC #### [facility] [address] [place] [address] Dr. Tasha Dodson MCH (RBC) [Entitic mass] 30.7 pg Normal 26.7-34.0 [facility] Comment on above: Performed By: #### C BC #### [facility] [address] [place] [address] Dr. Tasha Dodson MCHC (RBC) [Mass/Vol] 34.8 g/dL Normal 29.9-35.2 [facility] Comment on above: Performed By: #### C BC #### [facility] [address] [place] [address] Dr. Tasha Dodson MCV (RBC) [Entitic vol] 88.3 fL Normal 81.0-99.0 [facility] Comment on above: Performed By: #### C BC #### [facility] [address] [place] [address] Dr. Tasha Dodson MONO # 1.0 103/ul Critically high 0.3-0.8 [facility] Comment on above: Performed By: #### C BC #### [facility] [address] [address] [address] Tasha Dodson Monocytes/100 WBC (Bld) 7.4 % Normal 1.7-12.0 [facility] Comment on above: Performed By: #### C BC #### [facility] [address] [address] [address] Tasha Dodson NEUT # 9.5 103/ul Critically high 1.4-6.5 [facility] Comment on above: Performed By: #### C BC #### [facility] [address] [address] [address] Tasha Dodson Neutrophils/100 WBC (Bld) 70.1 % Normal 43.0-75.0 [facility] Comment on above: Performed By: #### C BC #### [facility] [address] [address] [address] Tasha Dodson Platelet mean volume (Bld) [Entitic vol] 8.0 fL Critically low 9.5-13.5 [facility] Comment on above: Performed By: #### C BC #### [facility] [address] [address] [address] Tasha Dodson PLT 492 103/ul Critically high 150-450 [facility] Comment on above: Performed By: #### C BC #### [facility] [address] [address] [address] Tasha Dodson RBC 4.36 106/ul Normal 4.20-5.40 [facility] Comment on above: Performed By: #### C BC #### [facility] [address] [id number] Tasha Dodson WBC 13.5 103/ul Critically high 4.0-11.0 [facility] Comment on above: Performed By: #### C BC #### [facility] [address] [place] [address] Dr. Tasha Dodson PROF 14(COMP METB)on 022 Albumin [Mass/Vol] 3.8 g/dL Normal 3.4-5.0 [facility] Comment on above: Performed By: #### T SH, BMP #### [facility] [address] [place] [address] Dr. Tasha Dodson Albumin/Globulin [Mass ratio] 0.9 {ratio} Normal [facility] Comment on above: Performed By: #### T SH, BMP #### [facility] [address] [address] [address] Tasha Dodson ALP [Catalytic activity/Vol] 60 U/L Normal 46-116 [facility] Comment on above: Performed By: #### T SH, BMP #### [facility] [address] [place] [address] Dr. Tasha Dodson ALT [Catalytic activity/Vol] 26 U/L Normal 14-59 [facility] Comment on above: Performed By: #### T SH, BMP #### [facility] [address] [place] [address] Dr. Tasha Dodson Anion gap [Moles/Vol] 8.4 mmol/L Normal [facility] Comment on above: Performed By: #### T SH, BMP #### [facility] [address] [place] [address] Dr. Tasha Dodson AST [Catalytic activity/Vol] 19 U/L Normal 15-37 [facility] Comment on above: Performed By: #### T SH, BMP #### [facility] [address] [place] [address] Dr. Tasha Dodson Bilirubin [Mass/Vol] 0.4 mg/dL Normal 0.2-1.0 [facility] Comment on above: Performed By: #### T SH, BMP #### [facility] [address] [place] [address] Dr. Tsaha Dodson Calcium [Mass/Vol] 10.1 mg/dL Normal 8.5-10.1 [facility] Comment on above: Performed By: #### T SH, BMP #### [facility] [address] [place] [address] Dr. Tasha Dodson Chloride [Moles/Vol] 92 mmol/L Critically low 98-107 [facility] Comment on above: Performed By: #### T SH, BMP #### [facility] [address] [address] [address] Tasha Dodson CO2 [Moles/Vol] 33.8 mmol/L Critically high 21.0-32.0 [facility] Comment on above: Performed By: #### T SH, BMP #### [facility] [address] [address] [address] Tasha Dodson Creatinine [Mass/Vol] 0.67 mg/dL Normal 0.55-1.02 [facility] Comment on above: Performed By: #### T SH, BMP #### [facility] [address] [place] [address] Dr. Tasha Dodson EGFR-AF ICELANDIC >60 Normal >=60 [facility] Comment on above: Performed By: #### T SH, BMP #### [facility] [address] [place] [address] Dr. Tasha Dodson EGFR-NON AF ICELANDIC >60 Normal >=60 [facility] Comment on above: Performed By: #### T SH, BMP #### [facility] [address] [place] [address] Dr. Tasha Dodson Globulin (S) [Mass/Vol] 4.1 g/dL Normal [facility] Comment on above: Performed By: #### T SH, BMP #### [facility] [address] [place] [address] Dr. Tasha Dodson Glucose [Mass/Vol] 106 mg/dL Normal 74-106 [facility] Comment on above: Performed By: #### T SH, BMP #### [facility] [address] [place] [address] Dr. Tasha Dodson Potassium [Moles/Vol] 3.2 mmol/L Critically low 3.5-5.1 [facility] Comment on above: Performed By: #### T SH, BMP #### [facility] [address] [place] [address] Dr. Tasha Dodson Protein [Mass/Vol] 7.9 g/dL Normal 6.4-8.2 [facility] Comment on above: Performed By: #### T SH, BMP #### [facility] [address] [place] [address] Dr. Tasha Dodson Sodium [Moles/Vol] 131 mmol/L Critically low 136-145 [facility] Comment on above: Performed By: #### T SH, BMP #### [facility] [address] [place] [address] Dr. Tasha Dodson Urea nitrogen [Mass/Vol] 10.0 mg/dL Normal 7.0-18.0 [facility] Comment on above: Performed By: #### T SH, BMP #### [facility] [address] [place] [address] Dr. Tasha Dodson Urea nitrogen/Creatinine [Mass ratio] 14.9 mg/mg Normal [facility] Comment on above: Performed By: #### T JESI, BMP #### [facility] [address] [place] [address] Dr. Tasha Dodson CBC AUTO DIFFon 12-29-2021 BASO # 0.1 103/ul Normal 0.0-0.1 [facility] Comment on above: Performed By: #### C BC #### [facility] [address] [place] [address] Dr. Tasha Dodson Basophils/100 WBC (Bld) 0.5 % Normal 0.2-2.0 [facility] Comment on above: Performed By: #### C BC #### [facility] [address] [place] [address] Dr. Tasha Dodson EO # 0.1 103/ul Normal 0.0-0.7 [facility] Comment on above: Performed By: #### C BC #### [facility] [address] [place] [address] Dr. Tasha Dodson Eosinophils/100 WBC (Bld) 0.4 % Critically low 0.9-7.0 [facility] Comment on above: Performed By: #### C BC #### [facility] [address] [place] [address] Dr. Tasha Dodson Erythrocyte distribution width (RBC) [Ratio] 13.0 % Normal 11.0-15.0 [facility] Comment on above: Performed By: #### C BC #### [facility] [address] [place] [address] Dr. Tasha Dodson Hematocrit (Bld) [Volume fraction] 34.0 % Critically low 36.0-48.0 [facility] Comment on above: Performed By: #### C BC #### [facility] [address] [place] [address] Dr. Tasha Dodson Hemoglobin (Bld) [Mass/Vol] 12.0 g/dL Normal 12.0-16.0 [facility] Comment on above: Performed By: #### C BC #### [facility] [address] [place] [address] Dr. Tasha Dodson IG # 0.06 10e3/ul Critically high 0.00-0.03 [facility] Comment on above: Performed By: #### C BC #### [facility] [address] [place] [address] Dr. Tasha Dodson IG % 0.4 % Normal 0.0-0.5 [facility] Comment on above: Performed By: #### C BC #### [facility] [address] [place] [address] Dr. Tasha Dodson LYMPH # 2.5 103/ul Normal 1.2-3.8 [facility] Comment on above: Performed By: #### C BC #### [facility] [address] [place] [address] Dr. Tasha Dodson Lymphocytes/100 WBC (Bld) 17.4 % Critically low 20.5-60.0 [facility] Comment on above: Performed By: #### C BC #### [facility] [address] [place] [address] Dr. Tasha Dodson MANUAL DIFF REQ NO Normal [facility] Comment on above: Performed By: #### C BC #### [facility] [address] [place] [address] Dr. Tasha Dodson MCH (RBC) [Entitic mass] 31.0 pg Normal 26.7-34.0 [facility] Comment on above: Performed By: #### C BC #### [facility] [address] [address] [address] Tasha Dodson MCHC (RBC) [Mass/Vol] 35.3 g/dL Critically high 29.9-35.2 [facility] Comment on above: Performed By: #### C BC #### [facility] [address] [address] [address] Tasha Dodson MCV (RBC) [Entitic vol] 87.9 fL Normal 81.0-99.0 [facility] Comment on above: Performed By: #### C BC #### [facility] [address] [address] [address] Tasha Dodson MONO # 1.0 103/ul Critically high 0.3-0.8 [facility] Comment on above: Performed By: #### C BC #### [facility] [address] [address] [address] Tasha Dodson Monocytes/100 WBC (Bld) 6.9 % Normal 1.7-12.0 [facility] Comment on above: Performed By: #### C BC #### [facility] [address] [address] [address] Tasha Dodson NEUT # 10.8 103/ul Critically high 1.4-6.5 [facility] Comment on above: Performed By: #### C BC #### [facility] [address] [address] [address] Tasha Dodson Neutrophils/100 WBC (Bld) 74.4 % Normal 43.0-75.0 [facility] Comment on above: Performed By: #### C BC #### [facility] [address] [address] [address] Tasha Dodson Platelet mean volume (Bld) [Entitic vol] 8.4 fL Critically low 9.5-13.5 [facility] Comment on above: Performed By: #### C BC #### [facility] [address] [address] [address] Tasha Dodson PLT 370 103/ul Normal 150-450 [facility] Comment on above: Performed By: #### C BC #### [facility] [address] [address] [address] Tasha Dodson RBC 3.87 106/ul Critically low 4.20-5.40 [facility] Comment on above: Performed By: #### C BC #### [facility] [address] [address] [address] Tasha Dodson WBC 14.5 103/ul Critically high 4.0-11.0 [facility] Comment on above: Performed By: #### C BC #### [facility] [address] [address] [address] Tasha Dodson PROF 14(COMP METB)on 022 Albumin [Mass/Vol] 2.8 g/dL Critically low 3.4-5.0 [facility] Comment on above: Performed By: #### T SH, BMP #### [facility] [address] [place] [address] Dr. Tasha Dodson Albumin/Globulin [Mass ratio] 0.9 {ratio} Normal [facility] Comment on above: Performed By: #### T SH, BMP #### [facility] [address] [place] [address] Dr. Tasha Dodson ALP [Catalytic activity/Vol] 51 U/L Normal 46-116 [facility] Comment on above: Performed By: #### T SH, BMP #### [facility] [address] [address] [address] Tasha Dodson ALT [Catalytic activity/Vol] 15 U/L Normal 14-59 [facility] Comment on above: Performed By: #### T SH, BMP #### [facility] [address] [address] [address] Tasha Dodson Anion gap [Moles/Vol] 9.7 mmol/L Normal [facility] Comment on above: Performed By: #### T SH, BMP #### [facility] [address] [place] [address] Dr. Tasha Dodson AST [Catalytic activity/Vol] 15 U/L Normal 15-37 [facility] Comment on above: Performed By: #### T SH, BMP #### [facility] [address] [address] [address] Tasha Dodson Bilirubin [Mass/Vol] 0.4 mg/dL Normal 0.2-1.0 [facility] Comment on above: Performed By: #### T SH, BMP #### [facility] [address] [place] [address] Dr. Tasha Dodson Calcium [Mass/Vol] 8.6 mg/dL Normal 8.5-10.1 [facility] Comment on above: Performed By: #### T SH, BMP #### [facility] [address] [place] [address] Dr. Tasha Dodson Chloride [Moles/Vol] 97 mmol/L Critically low 98-107 [facility] Comment on above: Performed By: #### T SH, BMP #### [facility] [address] [place] [address] Dr. Tasha Dodson CO2 [Moles/Vol] 25.8 mmol/L Normal 21.0-32.0 [facility] Comment on above: Performed By: #### T SH, BMP #### [facility] [address] [place] [address] Dr. Tasha Dodson Creatinine [Mass/Vol] 0.52 mg/dL Critically low 0.55-1.02 [facility] Comment on above: Performed By: #### T SH, BMP #### [facility] [address] [place] [address] Dr. Tasha Dodson EGFR-AF ICELANDIC >60 Normal >=60 [facility] Comment on above: Performed By: #### T SH, BMP #### [facility] [address] [place] [address] Dr. Tasha Dodson EGFR-NON AF ICELANDIC >60 Normal >=60 [facility] Comment on above: Performed By: #### T SH, BMP #### [facility] [address] [place] [address] Dr. Tasha Dodson Globulin (S) [Mass/Vol] 3.2 g/dL Normal [facility] Comment on above: Performed By: #### T SH, BMP #### [facility] [address] [place] [address] Dr. Tasha Dodson Glucose [Mass/Vol] 117 mg/dL Critically high 74-106 T [facility] Comment on above: Performed By: #### T SH, BMP #### [facility] [address] [place] [address] Dr. Tasha Dodson Potassium [Moles/Vol] 3.5 mmol/L Normal 3.5-5.1 [facility] Comment on above: Performed By: #### T SH, BMP #### [facility] [address] [place] [address] Dr. Tasha Dodson Protein [Mass/Vol] 6.0 g/dL Critically low 6.4-8.2 [facility] Comment on above: Performed By: #### T SH, BMP #### [facility] [address] [place] [address] Dr. Tasha Dodson Sodium [Moles/Vol] 129 mmol/L Critically low 136-145 Th [facility] Comment on above: Performed By: #### T SH, BMP #### [facility] [address] [place] [address] Dr. Tasha Dodson Urea nitrogen [Mass/Vol] 4.0 mg/dL Critically low 7.0-18.0 [facility] Comment on above: Performed By: #### T SH, BMP #### [facility] [address] [place] [address] Dr. Tasha Dodson Urea nitrogen/Creatinine [Mass ratio] 7.7 mg/mg Normal [facility] Comment on above: Performed By: #### T SH, BMP #### [facility] [address] [place] [address] Dr. Tasha Dodson CBC AUTO DIFFon 12-28-2021 BASO # 0.1 103/ul Normal 0.0-0.1 [facility] Comment on above: Performed By: #### C BC #### [facility] [address] [place] [address] Dr. Tasha Dodson Basophils/100 WBC (Bld) 0.4 % Normal 0.2-2.0 [facility] Comment on above: Performed By: #### C BC #### [facility] [address] [place] [address] Dr. Tasha Dodson EO # 0.1 103/ul Normal 0.0-0.7 [facility] Comment on above: Performed By: #### C BC #### [facility] [address] [place] [address] Dr. Tasha Dodson Eosinophils/100 WBC (Bld) 0.4 % Critically low 0.9-7.0 [facility] Comment on above: Performed By: #### C BC #### [facility] [address] [place] [address] Dr. Tasha Dodson Erythrocyte distribution width (RBC) [Ratio] 12.9 % Normal 11.0-15.0 [facility] Comment on above: Performed By: #### C BC #### [facility] [address] [place] [address] Dr. Tasha Dodson Hematocrit (Bld) [Volume fraction] 34.2 % Critically low 36.0-48.0 [facility] Comment on above: Performed By: #### C BC #### [facility] [address] [place] [address] Dr. Tasha Dodson Hemoglobin (Bld) [Mass/Vol] 12.4 g/dL Normal 12.0-16.0 [facility] Comment on above: Performed By: #### C BC #### [facility] [address] [place] [address] Dr. Tasha Dodson IG # 0.09 10e3/ul Critically high 0.00-0.03 [facility] Comment on above: Performed By: #### C BC #### [facility] [address] [place] [address] Dr. Tasha Dodson IG % 0.6 % Critically high 0.0-0.5 [facility] Comment on above: Performed By: #### C BC #### [facility] [address] [place] [address] Dr. Tasha Dodson LYMPH # 2.2 103/ul Normal 1.2-3.8 [facility] Comment on above: Performed By: #### C BC #### [facility] [address] [place] [address] Dr. Tasha Dodson Lymphocytes/100 WBC (Bld) 13.6 % Critically low 20.5-60.0 [facility] Comment on above: Performed By: #### C BC #### [facility] [address] [place] [address] Dr. Tasha Dodson MANUAL DIFF REQ NO Normal [facility] [facility] Comment on above: Performed By: #### C BC #### [facility] [address] [place] [address] Dr. Tasha Dodson MCH (RBC) [Entitic mass] 31.2 pg Normal 26.7-34.0 [facility] Comment on above: Performed By: #### C BC #### [facility] [address] [place] [address] Dr. Tasha Dodson MCHC (RBC) [Mass/Vol] 36.3 g/dL Critically high 29.9-35.2 [facility] Comment on above: Performed By: #### C BC #### [facility] [address] [place] [address] Dr. Tasha Dodson MCV (RBC) [Entitic vol] 85.9 fL Normal 81.0-99.0 [facility] Comment on above: Performed By: #### C BC #### [facility] [address] [place] [address] Dr. Tasha Dodson MONO # 1.3 103/ul Critically high 0.3-0.8 [facility] Comment on above: Performed By: #### C BC #### [facility] [address] [place] [address] Dr. Tasha Dodson Monocytes/100 WBC (Bld) 7.8 % Normal 1.7-12.0 [facility] Comment on above: Performed By: #### C BC #### [facility] [address] [place] [address] Dr. Tasha Dodson NEUT # 12.4 103/ul Critically high 1.4-6.5 [facility] Comment on above: Performed By: #### C BC #### [facility] [address] [address] [address] Tasha Dodson Neutrophils/100 WBC (Bld) 77.2 % Critically high 43.0-75.0 [facility] Comment on above: Performed By: #### C BC #### [facility] [address] [address] [address] Tasha Dodson Platelet mean volume (Bld) [Entitic vol] 8.6 fL Critically low 9.5-13.5 [facility] Comment on above: Performed By: #### C BC #### [facility] [address] [place] [address] Dr. Tasha Dodson PLT 385 103/ul Normal 150-450 [facility] Comment on above: Performed By: #### C BC #### [facility] [address] [place] [address] Dr. Tasha Dodson RBC 3.98 106/ul Critically low 4.20-5.40 [facility] Comment on above: Performed By: #### C BC #### [facility] [address] [place] [address] Dr. Tasha Dodson WBC 16.1 103/ul Critically high 4.0-11.0 [facility] Comment on above: Performed By: #### C BC #### [facility] [address] [place] [address] Dr. Tasah Dodson PROF 14(COMP METB)on 022 Albumin [Mass/Vol] 3.2 g/dL Critically low 3.4-5.0 [facility] Comment on above: Performed By: #### T SH, BMP #### [facility] [address] [place] [address] Dr. Tasha Dodson Albumin/Globulin [Mass ratio] 1.0 {ratio} Normal [facility] Comment on above: Performed By: #### T SH, BMP #### [facility] [address] [place] [address] Dr. Tasha Dodson ALP [Catalytic activity/Vol] 51 U/L Normal 46-116 [facility] Comment on above: Performed By: #### T SH, BMP #### [facility] [address] [address] [address] Tasha Dodson ALT [Catalytic activity/Vol] 17 U/L Normal 14-59 [facility] Comment on above: Performed By: #### T SH, BMP #### [facility] [address] [address] [address] Tasha Dodson Anion gap [Moles/Vol] 10.5 mmol/L Normal [facility] Comment on above: Performed By: #### T SH, BMP #### [facility] [address] [place] [address] Dr. Tasha Dodson AST [Catalytic activity/Vol] 18 U/L Normal 15-37 [facility] Comment on above: Performed By: #### T SH, BMP #### [facility] [address] [place] [address] Dr. Tasha Dodson Bilirubin [Mass/Vol] 0.4 mg/dL Normal 0.2-1.0 [facility] Comment on above: Performed By: #### T SH, BMP #### [facility] [address] [place] [address] Dr. Tasha Dodson Calcium [Mass/Vol] 8.3 mg/dL Critically low 8.5-10.1 [facility] Comment on above: Performed By: #### T SH, BMP #### [facility] [address] [place] [address] Dr. Tasha Dodson Chloride [Moles/Vol] 96 mmol/L Critically low 98-107 [facility] Comment on above: Performed By: #### T SH, BMP #### [facility] [address] [address] [address] Tasha Dodson CO2 [Moles/Vol] 24.5 mmol/L Normal 21.0-32.0 [facility] Comment on above: Performed By: #### T SH, BMP #### [facility] [address] [place] [address] Dr. Tasha Dodson Creatinine [Mass/Vol] 0.54 mg/dL Critically low 0.55-1.02 [facility] Comment on above: Performed By: #### T SH, BMP #### [facility] [address] [place] [address] Dr. Tasha Dodson EGFR-AF ICELANDIC >60 Normal >=60 [facility] Comment on above: Performed By: #### T SH, BMP #### [facility] [address] [address] [address] Tasha Dodson EGFR-NON AF ICELANDIC >60 Normal >=60 [facility] Comment on above: Performed By: #### T SH, BMP #### [facility] [address] [address] [address] Tasha Dodson Globulin (S) [Mass/Vol] 3.1 g/dL Normal [facility] Comment on above: Performed By: #### T SH, BMP #### [facility] [address] [place] [address] Dr. Tasha Dodson Glucose [Mass/Vol] 123 mg/dL Critically high 74-106 [facility] Comment on above: Performed By: #### T SH, BMP #### [facility] [address] [place] [address] Dr. Tasha Dodson Potassium [Moles/Vol] 3.0 mmol/L Critically low 3.5-5.1 [facility] Comment on above: Performed By: #### T SH, BMP #### [facility] [address] [place] [address] Dr. Tasha Dodson Protein [Mass/Vol] 6.3 g/dL Critically low 6.4-8.2 [facility] Comment on above: Performed By: #### T SH, BMP #### [facility] [address] [address] [address] Tasha Dodson Sodium [Moles/Vol] 128 mmol/L Critically low 136-145 [facility] Comment on above: Performed By: #### T SH, BMP #### [facility] [address] [place] [address] Dr. Tasha Dodson Urea nitrogen [Mass/Vol] 5.0 mg/dL Critically low 7.0-18.0 [facility] Comment on above: Performed By: #### T JESI, BMP #### [facility] [address] [place] [address] Dr. Tasha Dodson Urea nitrogen/Creatinine [Mass ratio] 9.3 mg/mg Normal [facility] Comment on above: Performed By: #### T JESI, BMP #### [facility] [address] [place] [address] Dr. Tasha Dodson SODIUM RANDOM URINEon 2021 Sodium (U) [Moles/Vol] 135 mmol/L Critically high 30-90 [facility] Comment on above: Performed By: #### C BC #### [facility] [address] [place] [address] Dr. Tasha Dodson CBC AUTO DIFFon 12-27-2021 BASO # 0.0 103/ul Normal 0.0-0.1 [facility] Comment on above: Performed By: #### C BC #### [facility] [address] [place] [address] Dr. Tasha Dodson Basophils/100 WBC (Bld) 0.2 % Normal 0.2-2.0 [facility] Comment on above: Performed By: #### C BC #### [facility] [address] [place] [address] Dr. Tasha Dodson EO # 0.3 103/ul Normal 0.0-0.7 [facility] Comment on above: Performed By: #### C BC #### [facility] [address] [place] [address] Dr. Tasha Dodson Eosinophils/100 WBC (Bld) 2.3 % Normal 0.9-7.0 [facility] Comment on above: Performed By: #### C BC #### [facility] [address] [place] [address] Dr. Tasha Dodson Erythrocyte distribution width (RBC) [Ratio] 12.4 % Normal 11.0-15.0 [facility] Comment on above: Performed By: #### C BC #### [facility] [address] [place] [address] Dr. Tasha Dodson Hematocrit (Bld) [Volume fraction] 35.4 % Critically low 36.0-48.0 [facility] Comment on above: Performed By: #### C BC #### [facility] [address] [place] [address] Dr. Tasha Dodson Hemoglobin (Bld) [Mass/Vol] 12.9 g/dL Normal 12.0-16.0 [facility] Comment on above: Performed By: #### C BC #### [facility] [address] [place] [address] Dr. Tasha Dodson IG # 0.06 10e3/ul Critically high 0.00-0.03 [facility] Comment on above: Performed By: #### C BC #### [facility] [address] [place] [address] Dr. Tasha Dodson IG % 0.5 % Normal 0.0-0.5 [facility] Comment on above: Performed By: #### C BC #### [facility] [address] [place] [address] Dr. Tasha Dodson LYMPH # 2.0 103/ul Normal 1.2-3.8 [facility] Comment on above: Performed By: #### C BC #### [facility] [address] [place] [address] Dr. Tasha Dodson Lymphocytes/100 WBC (Bld) 15.7 % Critically low 20.5-60.0 [facility] Comment on above: Performed By: #### C BC #### [facility] [address] [place] [address] Dr. Tasha Dodson MANUAL DIFF REQ NO Normal [facility] Comment on above: Performed By: #### C BC #### [facility] [address] [place] [address] Dr. Tasha Dodson MCH (RBC) [Entitic mass] 31.0 pg Normal 26.7-34.0 [facility] Comment on above: Performed By: #### C BC #### [facility] [address] [place] [address] Dr. Tasha Dodson MCHC (RBC) [Mass/Vol] 36.4 g/dL Critically high 29.9-35.2 [facility] Comment on above: Performed By: #### C BC #### [facility] [address] [place] [address] Dr. Tasha Dodson MCV (RBC) [Entitic vol] 85.1 fL Normal 81.0-99.0 [facility] Comment on above: Performed By: #### C BC #### [facility] [address] [place] [address] Dr. Tasha Dodson MONO # 1.1 103/ul Critically high 0.3-0.8 [facility] Comment on above: Performed By: #### C BC #### [facility] [address] [place] [address] Dr. Tasha Dodson Monocytes/100 WBC (Bld) 8.3 % Normal 1.7-12.0 [facility] Comment on above: Performed By: #### C BC #### [facility] [address] [place] [address] Dr. Tasha Dodson NEUT # 9.5 103/ul Critically high 1.4-6.5 [facility] Comment on above: Performed By: #### C BC #### [facility] [address] [place] [address] Dr. Tasha Dodson Neutrophils/100 WBC (Bld) 73.0 % Normal 43.0-75.0 [facility] Comment on above: Performed By: #### C BC #### [facility] [address] [place] [address] Dr. Tasha Dodson Platelet mean volume (Bld) [Entitic vol] 8.3 fL Critically low 9.5-13.5 [facility] Comment on above: Performed By: #### C BC #### [facility] [address] [place] [address] Dr. Tasha Dodson PLT 408 103/ul Normal 150-450 [facility] Comment on above: Performed By: #### C BC #### [facility] [address] [place] [address] Dr. Tasha Dodson RBC 4.16 106/ul Critically low 4.20-5.40 [facility] Comment on above: Performed By: #### C BC #### [facility] [address] [place] [address] Dr. Tasha Dodson WBC 13.0 103/ul Critically high 4.0-11.0 [facility] Comment on above: Performed By: #### C BC #### [facility] [address] [place] [address] Dr. Tasha Dodson CULTURE SPUTUMon 12-27-2021 CULTURE SPUTUM Culture Observations : NORMAL RESPIRATORY AMADOU. Normal [facility] Comment on above: Performed By: #### C BC #### [facility] [address] [place] [address] Dr. Tasha Dodson PROF 14(COMP METB)on 022 Albumin [Mass/Vol] 3.4 g/dL Normal 3.4-5.0 [facility] Comment on above: Performed By: #### C MADM, LIPA, BNP, CMP #### [facility] [address] [place] [address] Dr. Tasha Dodson Albumin/Globulin [Mass ratio] 1.0 {ratio} Normal [facility] Comment on above: Performed By: #### C MADM, LIPA, BNP, CMP #### [facility] [address] [place] [address] Dr. Tasha Dodson ALP [Catalytic activity/Vol] 54 U/L Normal 46-116 [facility] Comment on above: Performed By: #### C MADM, LIPA, BNP, CMP #### [facility] [address] [place] [address] Dr. Tasha Dodson ALT [Catalytic activity/Vol] 20 U/L Normal 14-59 [facility] Comment on above: Performed By: #### C MADM, LIPA, BNP, CMP #### [facility] [address] [place] [address] Dr. Tasha Dodson Anion gap [Moles/Vol] 10.8 mmol/L Normal [facility] Comment on above: Performed By: #### C MADM, LIPA, BNP, CMP #### [facility] [address] [address] [address] Tasha Dodson AST [Catalytic activity/Vol] 19 U/L Normal 15-37 [facility] Comment on above: Performed By: #### C MADM, LIPA, BNP, CMP #### [facility] [address] [place] [address] Dr. Tasha Dodson Bilirubin [Mass/Vol] 0.5 mg/dL Normal 0.2-1.0 [facility] Comment on above: Performed By: #### C MADM, LIPA, BNP, CMP #### [facility] [address] [place] [address] Dr. Tasha Dodson Calcium [Mass/Vol] 8.3 mg/dL Critically low 8.5-10.1 [facility] Comment on above: Performed By: #### C MADM, LIPA, BNP, CMP #### [facility] [address] [place] [address] Dr. Tasha Dodson Chloride [Moles/Vol] 89 mmol/L Critically low 98-107 [facility] Comment on above: Performed By: #### C MADM, LIPA, BNP, CMP #### [facility] [address] [place] [address] Dr. Tasha Dodson CO2 [Moles/Vol] 27.0 mmol/L Normal 21.0-32.0 [facility] Comment on above: Performed By: #### C MADM, LIPA, BNP, CMP #### [facility] [address] [place] [address] Dr. Tasha Dodson Creatinine [Mass/Vol] 0.69 mg/dL Normal 0.55-1.02 [facility] Comment on above: Performed By: #### C MADM, LIPA, BNP, CMP #### [facility] [address] [place] [address] Dr. Tasha Dodson EGFR-AF ICELANDIC >60 Normal >=60 [facility] Comment on above: Performed By: #### C MADM, LIPA, BNP, CMP #### [facility] [address] [place] [address] Dr. Tasha Dodson EGFR-NON AF ICELANDIC >60 Normal >=60 [facility] Comment on above: Performed By: #### C MADM, LIPA, BNP, CMP #### [facility] [address] [place] [address] Dr. Tasha Dodson Globulin (S) [Mass/Vol] 3.3 g/dL Normal [facility] Comment on above: Performed By: #### C MADM, LIPA, BNP, CMP #### [facility] [address] [place] [address] Dr. Tasha Dodson Glucose [Mass/Vol] 115 mg/dL Critically high 74-106 [facility] Comment on above: Performed By: #### C MADM, LIPA, BNP, CMP #### [facility] [address] [place] [address] Dr. Tasha Dodson Potassium [Moles/Vol] 2.7 mmol/L Critically low 3.5-5.1 [facility] Comment on above: Result Comment: Test Repeated. Critical Value Verified Performed By: #### C MADM, LIPA, BNP, CMP #### [facility] [address] [place] [address] Dr. Tasha Dodson Protein [Mass/Vol] 6.7 g/dL Normal 6.4-8.2 [facility] Comment on above: Performed By: #### C MADM, LIPA, BNP, CMP #### [facility] [address] [place] [address] Dr. Tasha Dodson Sodium [Moles/Vol] 123 mmol/L Critically low 136-145 [facility] Comment on above: Result Comment: Test Repeated. Critical Value Verified Performed By: #### C MADM, LIPA, BNP, CMP #### [facility] [address] [place] [address] Dr. Tasha Dodson Urea nitrogen [Mass/Vol] 6.0 mg/dL Critically low 7.0-18.0 [facility] Comment on above: Performed By: #### C MADM, LIPA, BNP, CMP #### [facility] [address] [place] [address] Dr. Tasha Dodson Urea nitrogen/Creatinine [Mass ratio] 8.7 mg/mg Normal [facility] Comment on above: Performed By: #### C MADM, LIPA, BNP, CMP #### [facility] [address] [address] [address] Tasha Dodson SPUTUM GRAM STAINon 12-28-19 COMMENTS Normal [facility] Comment on above: Performed By: #### T SH, BMP #### [facility] [address] [address] [address] Tasha Dodson DIPHTHEROIDS Normal [facility] Comment on above: Performed By: #### T SH, BMP #### [facility] [address] [address] [address] Tasha Dodson EPITHELIALS <25 Normal [facility] Comment on above: Performed By: #### T SH, BMP #### [facility] [address] [address] [address] Tasha Dodson FUNGAL ELEMENTS Normal [facility] Comment on above: Performed By: #### T SH, BMP #### [facility] [address] [address] [address] Tasha Dodson GRAM NEG BACILLI Normal [facility] Comment on above: Performed By: #### T SH, BMP #### [facility] [address] [address] [address] Tasha Dodson GRAM NEG DIPPLOCOCCI Normal [facility] Comment on above: Performed By: #### T SH, BMP #### [facility] [address] [address] [address] Tasha Dodson GRAM POS BACILLI Normal [facility] Comment on above: Performed By: #### T SH, BMP #### [facility] [address] [address] [address] Tasha Dodson GRAM POSITIVE COCCI MODERATE Normal [facility] Comment on above: Performed By: #### T SH, BMP #### [facility] [address] [place] [address] Dr. Tasha Dodson WBC (Bld) [#/Vol] 10*3/uL Normal [facility] Comment on above: Performed By: #### T SH, BMP #### [facility] [address] [address] [address] Tasha Dodson BNPon 12-26-2021 Natriuretic peptide B (Bld) [Mass/Vol] 148.0 pg/mL Normal <=1,800.0 [facility] Comment on above: Performed By: #### C MADM, LIPA, BNP, CMP #### [facility] [address] [address] [address] Tasha Dodson CARDIAC ANGELO ADMITon 022 CK [Catalytic activity/Vol] 139 U/L Normal 26-192 [facility] Comment on above: Performed By: #### C MADM, LIPA, BNP, CMP #### [facility] [address] [address] [address] Tasha Dodson CK.MB [Mass/Vol] 2.43 ng/mL Normal <=3.60 [facility] Comment on above: Performed By: #### C MADM, LIPA, BNP, CMP #### [facility] [address] [address] [address] Tasha Dodson HSTROP 12.2 pg/mL Normal 4.0-51.3 [facility] Comment on above: Result Comment: CUT- OFF POINTS HAVE BEEN ESTABLISHED BASED ON THE FOURTH UNIVERSAL DEFINITIONS OF MYOCARDIAL INFARCTION. THE UPPER REFERENCE LIMIT (URL) OF TROPONIN, DEFINED THE 99TH PERCENTILE OF cTnI DISTRIBUTION IN A REFERENCE POPULATION, HAS BEEN CONFIRMED THE DECISION THRESHOLD FOR PA DIAGNOSIS. Performed By: #### C MADM, LIPA, BNP, CMP #### [facility] [address] [address] [address] Tasha Dodson ELIZABETH 110 ng/mL Critically high 9-82 [facility] Comment on above: Performed By: #### C MADM, LIPA, BNP, CMP #### [facility] [address] [address] [address] Tasha Dodson CBC AUTO DIFFon 12-26-2021 BASO # 0.0 103/ul Normal 0.0-0.1 [facility] Comment on above: Performed By: #### C MADM, LIPA, BNP, CMP #### [facility] [address] [place] [address] Dr. Tasha Dodson Basophils/100 WBC (Bld) 0.3 % Normal 0.2-2.0 [facility] Comment on above: Performed By: #### C MADM, LIPA, BNP, CMP #### [facility] [address] [place] [address] Dr. Tasha Dodson EO # 0.1 103/ul Normal 0.0-0.7 [facility] Comment on above: Performed By: #### C MADM, LIPA, BNP, CMP #### [facility] [address] [place] [address] Dr. Tasha Dodson Eosinophils/100 WBC (Bld) 0.7 % Critically low 0.9-7.0 [facility] Comment on above: Performed By: #### C MADM, LIPA, BNP, CMP #### [facility] [address] [place] [address] Dr. Tasha Dodson Erythrocyte distribution width (RBC) [Ratio] 12.4 % Normal 11.0-15.0 [facility] Comment on above: Performed By: #### C MADM, LIPA, BNP, CMP #### [facility] [address] [place] [address] Dr. Tasha Dodson Hematocrit (Bld) [Volume fraction] 38.9 % Normal 36.0-48.0 [facility] Comment on above: Performed By: #### C MADM, LIPA, BNP, CMP #### [facility] [address] [place] [address] Dr. Tasha Dodson Hemoglobin (Bld) [Mass/Vol] 14.4 g/dL Normal 12.0-16.0 [facility] Comment on above: Performed By: #### C MADM, LIPA, BNP, CMP #### [facility] [address] [place] [address] Dr. Tahsa Dodson IG # 0.08 10e3/ul Critically high 0.00-0.03 [facility] Comment on above: Performed By: #### C MADM, LIPA, BNP, CMP #### [facility] [address] [place] [address] Dr. Tasha Dodson IG % 0.5 % Normal 0.0-0.5 [facility] Comment on above: Performed By: #### C MADM, LIPA, BNP, CMP #### [facility] [address] [place] [address] Dr. Tasha Dodson LYMPH # 2.2 103/ul Normal 1.2-3.8 [facility] Comment on above: Performed By: #### C MADM, LIPA, BNP, CMP #### [facility] [address] [place] [address] Dr. Tasha Dodson Lymphocytes/100 WBC (Bld) 15.0 % Critically low 20.5-60.0 [facility] Comment on above: Performed By: #### C MADM, LIPA, BNP, CMP #### [facility] [address] [place] [address] Dr. Tasha Dodson MANUAL DIFF REQ NO Normal [facility] Comment on above: Performed By: #### C MADM, LIPA, BNP, CMP #### [facility] [address] [place] [address] Dr. Tasha Dodson MCH (RBC) [Entitic mass] 31.6 pg Normal 26.7-34.0 [facility] Comment on above: Performed By: #### C MADM, LIPA, BNP, CMP #### [facility] [address] [place] [address] Dr. Tasha Dodson MCHC (RBC) [Mass/Vol] 37.0 g/dL Critically high 29.9-35.2 [facility] Comment on above: Performed By: #### C MADM, LIPA, BNP, CMP #### [facility] [address] [place] [address] Dr. Tasha Dodson MCV (RBC) [Entitic vol] 85.3 fL Normal 81.0-99.0 [facility] Comment on above: Performed By: #### C MADM, LIPA, BNP, CMP #### [facility] [address] [place] [address] Dr. Tasha Dodson MONO # 1.0 103/ul Critically high 0.3-0.8 [facility] Comment on above: Performed By: #### C MADM, LIPA, BNP, CMP #### [facility] [address] [place] [address] Dr. Tasha Dodson Monocytes/100 WBC (Bld) 6.8 % Normal 1.7-12.0 [facility] Comment on above: Performed By: #### C MADM, LIPA, BNP, CMP #### [facility] [address] [place] [address] Dr. Tasha Dodson NEUT # 11.5 103/ul Critically high 1.4-6.5 [facility] Comment on above: Performed By: #### C MADM, LIPA, BNP, CMP #### [facility] [address] [place] [address] Dr. Tasha Dodson Neutrophils/100 WBC (Bld) 76.7 % Critically high 43.0-75.0 [facility] Comment on above: Performed By: #### C MADM, LIPA, BNP, CMP #### [facility] [address] [place] [address] Dr. Tasha Dodson Platelet mean volume (Bld) [Entitic vol] 8.6 fL Critically low 9.5-13.5 [facility] Comment on above: Performed By: #### C MADM, LIPA, BNP, CMP #### [facility] [address] [place] [address] Dr. Tasha Dodson PLT 491 103/ul Critically high 150-450 [facility] Comment on above: Performed By: #### C MADM, LIPA, BNP, CMP #### [facility] [address] [place] [address] Dr. Tasha Dodson RBC 4.56 106/ul Normal 4.20-5.40 [facility] Comment on above: Performed By: #### C MADM, LIPA, BNP, CMP #### [facility] [address] [place] [address] Dr. Tasha Dodson WBC 15.0 103/ul Critically high 4.0-11.0 [facility] Comment on above: Performed By: #### C MADM, LIPA, BNP, CMP #### [facility] [address] [place] [address] Dr. Tasha Dodson CULTURE URINEon 12-26-2021 CULTURE URINE Culture Observations : LIGHT GROWTH OF MIXED GENITAL AMADOU. NO POTENTIAL PATHOGENS SEEN. Normal [facility] Comment on above: Performed By: #### C BC #### [facility] [address] [place] [address] Dr. Tasha Dodson Covid-19 PCR ([facility])on SARS-CoV-2 (COVID-19) RNA CARITO+probe Ql (Unsp spec) Not detected Normal NOT DETECTED [facility] Comment on above: Result Comment: When [...] for this test is supported by the Band S[employer]er of Health and Human Service's declaration that [...] #### C MADM, LIPA, BNP, CMP #### [facility] [address] [place] [address] Dr. Tasha Dodson ER URINE PROFILEon 2 Bilirubin Ql (U) Negative Normal NEGATIVE [facility] Comment on above: Performed By: #### T SH, BMP #### [facility] [address] [place] [address] Dr. Tasha Dodson Clarity (U) CLEAR Normal CLEAR [facility] Comment on above: Performed By: #### T SH, BMP #### [facility] [address] [place] [address] Dr. Tasha Dodson Color (U) LT. YELLOW Normal YELLOW [facility] Comment on above: Performed By: #### T SH, BMP #### [facility] [address] [place] [address] Dr. Tasha Dodson ERUAHD A micrscopic examination will be performed if indicated. Normal [facility] Comment on above: Performed By: #### T SH, BMP #### [facility] [address] [place] [address] Dr. Tasha Dodson Glucose Ql (U) Negative Normal NEGATIVE [facility] Comment on above: Performed By: #### T SH, BMP #### [facility] [address] [place] [address] Dr. Tasha Dodson Hemoglobin Ql (U) TRACE-INTACT Abnormal NEGATIVE [facility] Comment on above: Performed By: #### T SH, BMP #### [facility] [address] [place] [address] Dr. Tasha Dodson Ketones Ql (U) TRACE Abnormal NEGATIVE [facility] Comment on above: Performed By: #### T SH, BMP #### [facility] [address] [place] [address] Dr. Tasha Dodson LEUKOCYTES Negative Normal NEGATIVE [facility] Comment on above: Performed By: #### T SH, BMP #### [facility] [address] [place] [address] Dr. Tasha Dodson Nitrite Ql (U) Negative Normal NEGATIVE [facility] Comment on above: Performed By: #### T SH, BMP #### [facility] [address] [place] [address] Dr. Tasha Dodson pH (U) 7.0 [pH] Normal 5-9 [facility] Comment on above: Performed By: #### T SH, BMP #### [facility] [address] [place] [address] Dr. Tasha Dodson SPEC GRAVITY 1.010 Normal 1.005-<=1.0 25 [facility] Comment on above: Performed By: #### T SH, BMP #### [facility] [address] [place] [address] Dr. Tasha Dodson UA PROTEIN Negative Normal NEGATIVE/ TRACE [facility] Comment on above: Performed By: #### T SH, BMP #### [facility] [address] [place] [address] Dr. Tasha Dodson UR MICRO IND INDICATED Normal [facility] Comment on above: Performed By: #### T SH, BMP #### [facility] [address] [place] [address] Dr. Tasha Dodson Urobilinogen Qn (U) 0.2 {Juan'U}/dL Normal 0.2 - 1. 0 [facility] Comment on above: Performed By: #### T JESI, BMP #### [facility] [address] [place] [address] Dr. Tasha Dodson INFLUENZA A AND B [facility] Normal [facility] Comment on above: Result Comment: Nega tive for Flu A protein angiten. Infection due to Flu A cannot be ruled out. Flu A angiten in the sample may be below the detection limit of the test. Performed By: #### C BC #### [facility] [address] [place] [address] Dr. Tasha Dodson INFLUBNEGH SEE BELOW Normal [facility] Comment on above: Result Comment: Nega tive for Flu B protein antigen. Infection due to Flu B cannot be ruled out. Flu B antigen in the sample may be below the detection limit of the test. Performed By: #### C BC #### [facility] [address] [place] [address] Dr. Tasha Dodson INFLUENZA A AG Negative Normal NEGATIVE SEE COMMENT [facility] Comment on above: Performed By: #### C BC #### [facility] [address] [place] [address] Dr. Tasha Dodson INFLUENZA B AG Negative Normal NEGATIVE SEE COMMENT [facility] Comment on above: Performed By: #### C BC #### [facility] [address] [place] [address] Dr. Tasha Dodson INTERNAL CONTROLS Within Normal Limits Normal Wi thin Normal Limits [facility] Comment on above: Performed By: #### C BC #### [facility] [address] [place] [address] Dr. Tasha Dodson LACTATE/LACTIC ACIDon 2021 Lactate [Moles/Vol] 1.5 mmol/L Normal 0.4-1.9 [facility] Comment on above: Performed By: #### T SH, BMP #### [facility] [address] [place] [address] Dr. Tasha Dodson LIPASEon 12-26-2021 Lipase [Catalytic activity/Vol] 96.0 U/L Normal 73.0-393.0 [facility] Comment on above: Performed By: #### C MADM, LIPA, BNP, CMP #### [facility] [address] [place] [address] Dr. Tasha Dodson PROF 14(COMP METB)on 022 Albumin [Mass/Vol] 4.2 g/dL Normal 3.4-5.0 [facility] Comment on above: Performed By: #### C MADM, LIPA, BNP, CMP #### [facility] [address] [place] [address] Dr. Tasha Dodson Albumin/Globulin [Mass ratio] 1.1 {ratio} Normal [facility] Comment on above: Performed By: #### C MADM, LIPA, BNP, CMP #### [facility] [address] [place] [address] Dr. Tasha Dodson ALP [Catalytic activity/Vol] 68 U/L Normal 46-116 [facility] Comment on above: Performed By: #### C MADM, LIPA, BNP, CMP #### [facility] [address] [place] [address] Dr. Tasha Dodson ALT [Catalytic activity/Vol] 23 U/L Normal 14-59 [facility] Comment on above: Performed By: #### C MADM, LIPA, BNP, CMP #### [facility] [address] [place] [address] Dr. Tasha Dodson Anion gap [Moles/Vol] 12.3 mmol/L Normal Th [facility] Comment on above: Performed By: #### C MADM, LIPA, BNP, CMP #### [facility] [address] [address] [address] Tasha Dodson AST [Catalytic activity/Vol] 25 U/L Normal 15-37 [facility] Comment on above: Performed By: #### C MADM, LIPA, BNP, CMP #### [facility] [address] [address] [address] Tasha Dodson Bilirubin [Mass/Vol] 0.7 mg/dL Normal 0.2-1.0 [facility] Comment on above: Performed By: #### C MADM, LIPA, BNP, CMP #### [facility] [address] [address] [address] Tasha Dodson Calcium [Mass/Vol] 9.5 mg/dL Normal 8.5-10.1 [facility] Comment on above: Performed By: #### C MADM, LIPA, BNP, CMP #### [facility] [address] [address] [address] Tasha Dodson Chloride [Moles/Vol] 80 mmol/L Critically low 98-107 [facility] Comment on above: Performed By: #### C MADM, LIPA, BNP, CMP #### [facility] [address] [address] [address] Tasha Dodson CO2 [Moles/Vol] 27.1 mmol/L Normal 21.0-32.0 [facility] Comment on above: Performed By: #### C MADM, LIPA, BNP, CMP #### [facility] [address] [address] [address] Tasha Dodson Creatinine [Mass/Vol] 0.85 mg/dL Normal 0.55-1.02 [facility] Comment on above: Performed By: #### C MADM, LIPA, BNP, CMP #### [facility] [address] [address] [address] Tasha Dodson EGFR-AF ICELANDIC >60 Normal >=60 [facility] Comment on above: Performed By: #### C MADM, LIPA, BNP, CMP #### [facility] [address] [place] [address] Dr. Tasha Dodson EGFR-NON AF ICELANDIC >60 Normal >=60 [facility] Comment on above: Performed By: #### C MADM, LIPA, BNP, CMP #### [facility] [address] [place] [address] Dr. Tasha Dodson Globulin (S) [Mass/Vol] 3.9 g/dL Normal [facility] Comment on above: Performed By: #### C MADM, LIPA, BNP, CMP #### [facility] [address] [place] [address] Dr. Tasha Dodson Glucose [Mass/Vol] 132 mg/dL Critically high 74-106 [facility] Comment on above: Performed By: #### C MADM, LIPA, BNP, CMP #### [facility] [address] [place] [address] Dr. Tasha Dodson Potassium [Moles/Vol] 2.4 mmol/L Critically low 3.5-5.1 [facility] Comment on above: Performed By: #### C MADM, LIPA, BNP, CMP #### [facility] [address] [place] [address] Dr. Tasha Dodson Protein [Mass/Vol] 8.1 g/dL Normal 6.4-8.2 [facility] Comment on above: Performed By: #### C MADM, LIPA, BNP, CMP #### [facility] [address] [place] [address] Dr. Tasha Dodson Sodium [Moles/Vol] 116 mmol/L Critically low 136-145 [facility] Comment on above: Performed By: #### C MADM, LIPA, BNP, CMP #### [facility] [address] [place] [address] Dr. Tasha Dodson Urea nitrogen [Mass/Vol] 12.0 mg/dL Normal 7.0-18.0 [facility] Comment on above: Performed By: #### C MADM, LIPA, BNP, CMP #### [facility] [address] [place] [address] Dr. Tasha Dodson Urea nitrogen/Creatinine [Mass ratio] 14.1 mg/mg Normal [facility] Comment on above: Performed By: #### C MADM, LIPA, BNP, CMP #### [facility] [address] [place] [address] Dr. Tasha Dodson PROF CHEM 8 (BAS METB)on Anion gap [Moles/Vol] 11.4 mmol/L Normal [facility] Comment on above: Performed By: #### T SH, BMP #### [facility] [address] [place] [address] Dr. Tasha Dodson Calcium [Mass/Vol] 8.4 mg/dL Critically low 8.5-10.1 [facility] Comment on above: Performed By: #### T SH, BMP #### [facility] [address] [place] [address] Dr. Tasha Dodson Chloride [Moles/Vol] 89 mmol/L Critically low 98-107 [facility] Comment on above: Performed By: #### T SH, BMP #### [facility] [address] [place] [address] Dr. Tasha Dodson CO2 [Moles/Vol] 25.5 mmol/L Normal 21.0-32.0 [facility] Comment on above: Performed By: #### T SH, BMP #### [facility] [address] [place] [address] Dr. Tasha Dodson Creatinine [Mass/Vol] 0.89 mg/dL Normal 0.55-1.02 [facility] Comment on above: Performed By: #### T SH, BMP #### [facility] [address] [place] [address] Dr. Tasha Dodson EGFR-AF ICELANDIC >60 Normal >=60 [facility] Comment on above: Performed By: #### T SH, BMP #### [facility] [address] [place] [address] Dr. Tasha Dodson EGFR-NON AF ICELANDIC 60 mL/min/1.73m2 Normal >=60 [facility] Comment on above: Performed By: #### T SH, BMP #### [facility] [address] [place] [address] Dr. Tasha Dodson Glucose [Mass/Vol] 166 mg/dL Critically high 74-106 T [facility] Comment on above: Performed By: #### T SH, BMP #### [facility] [address] [place] [address] Dr. Tasha Dodson Potassium [Moles/Vol] 3.0 mmol/L Critically low 3.5-5.1 [facility] Comment on above: Performed By: #### T JESI, BMP #### [facility] [address] [place] [address] Dr. Tasha Dodson Sodium [Moles/Vol] 123 mmol/L Critically low 136-145 Th [facility] Comment on above: Performed By: #### T JESI, BMP #### [facility] [address] [place] [address] Dr. Tasha Dodson Urea nitrogen [Mass/Vol] 9.0 mg/dL Normal 7.0-18.0 [facility] Comment on above: Performed By: #### T JESI, BMP #### [facility] [address] [place] [address] Dr. Tasha Dodson Urea nitrogen/Creatinine [Mass ratio] 10.1 mg/mg Normal [facility] Comment on above: Performed By: #### T JESI, BMP #### [facility] [address] [place] [address] Dr. Tasha Dodson PROTIMEon 12-26-2021 INR Coag (PPP) [Relative time] 0.96 {INR} Normal [facility] Comment on above: Performed By: #### T JESI, BMP #### [facility] [address] [place] [address] Dr. Tasha Dodson INR GUIDELINES SEE BELOW Normal [facility] Comment on above: Result Comment: JO RED INR: 2.0 - 3.0 CONDITIONS NOT LISTED BELOW 2.5 - 3.5 FOR PROSTHETIC HEART VALVE REPLACEMENT 2.5 - 3.5 RECURRENT THROMBOSIS Performed By: #### T SH, BMP #### [facility] [address] [place] [address] Dr. Tasha Dodson PT Coag (PPP) [Time] 10.4 s Normal 9.0-11.6 [facility] Comment on above: Performed By: #### T SH, BMP #### [facility] [address] [place] [address] Dr. Tasha Dodson PTTon 12-26-2021 aPTT Coag (Bld) [Time] 26.2 s Normal 22.3-36.2 [facility] Comment on above: Performed By: #### T JESI, BMP #### [facility] [address] [place] [address] Dr. Tasha Dodson SODIUM RANDOM URINEon 2021 Sodium (U) [Moles/Vol] 71 mmol/L Normal 30-90 [facility] Comment on above: Performed By: #### T JESI, BMP #### [facility] [address] [place] [address] Dr. Tasha Dodson T4on 12-26-2021 T4 [Mass/Vol] 10.60 ug/dL Normal 4.80-13.90 [facility] Comment on above: Performed By: #### C BC #### [facility] [address] [place] [address] Dr. Tasha Dodson TSHon 12-26-2021 TSH 5.236 uIU/mL Critically high 0.358-3.740 [facility] Comment on above: Performed By: #### C BC #### [facility] [address] [place] [address] Dr. Tasha Dodson URINE MICROSCOPIC ONLYon BACTERIA TRACE Abnormal NONE SEEN [facility] Comment on above: Performed By: #### T JESI, BMP #### [facility] [address] [place] [address] Dr. Tasha Dodson Bacteria identified Cx Nom (U) NOT INDICATED Normal [facility] Comment on above: Performed By: #### T JESI, BMP #### [facility] [address] [place] [address] Dr. Tasha Dodson CAST NONE SEEN Normal NONE SEEN [facility] Comment on above: Performed By: #### T SH, BMP #### [facility] [address] [place] [address] Dr. Tasha Dodson Crystals LM Nom (Urine sed) NONE SEEN Normal NONE SEEN [facility] Comment on above: Performed By: #### T SH, BMP #### [facility] [address] [place] [address] Dr. Tasha Dodson Epithelial cells LM Ql (Urine sed) NONE SEEN Normal NONE SEEN /RARE [facility] Comment on above: Performed By: #### T SH, BMP #### [facility] [address] [place] [address] Dr. Tasha Dodson MUCOUS NONE SEEN Normal NONE SEEN [facility] Comment on above: Performed By: #### T SH, BMP #### [facility] [address] [place] [address] Dr. Tasha Dodson RBC 0-2 Normal 0-2 [facility] Comment on above: Performed By: #### T SH, BMP #### [facility] [address] [place] [address] Dr. Tasha Dodson WBC 0-2 Abnormal NONE SEEN [facility] Comment on above: Performed By: #### T SH, BMP #### [facility] [address] [place] [address] Dr. aTsha Dodson XR CHEST 1 Von 12-26-2021 XR [...] TING MIXON Date: 2021-12-26 11:32 Normal [facility] XR LSPINE MIN 4 VIEWSon 10- XR [...] JESUS BRUNO Date: 2021-11-30 22:52 Normal [facility] CBC AUTO DIFFon 11-09-2021 BASO # 0.1 103/ul Normal 0.0-0.1 [facility] Comment on above: Performed By: #### C MADM, LIPA, BNP, CMP #### [facility] [address] [place] [address] Dr. Tasha Dodson Basophils/100 WBC (Bld) 0.7 % Normal 0.2-2.0 [facility] Comment on above: Performed By: #### C MADM, LIPA, BNP, CMP #### [facility] [address] [place] [address] Dr. Tasha Dodson EO # 0.2 103/ul Normal 0.0-0.7 [facility] Comment on above: Performed By: #### C MADM, LIPA, BNP, CMP #### [facility] [address] [place] [address] Dr. Tasha Dodson Eosinophils/100 WBC (Bld) 1.8 % Normal 0.9-7.0 [facility] Comment on above: Performed By: #### C MADM, LIPA, BNP, CMP #### [facility] [address] [place] [address] Dr. Tasha Dodson Erythrocyte distribution width (RBC) [Ratio] 13.0 % Normal 11.0-15.0 [facility] Comment on above: Performed By: #### C MADM, LIPA, BNP, CMP #### [facility] [address] [place] [address] Dr. Tasha Dodson Hematocrit (Bld) [Volume fraction] 33.8 % Critically low 36.0-48.0 [facility] Comment on above: Performed By: #### C MADM, LIPA, BNP, CMP #### [facility] [address] [place] [address] Dr. Tasha Dodson Hemoglobin (Bld) [Mass/Vol] 12.5 g/dL Normal 12.0-16.0 [facility] Comment on above: Performed By: #### C MADM, LIPA, BNP, CMP #### [facility] [address] [place] [address] Dr. Tasha Dodson IG # 0.02 10e3/ul Normal 0.00-0.03 [facility] Comment on above: Performed By: #### C MADM, LIPA, BNP, CMP #### [facility] [address] [place] [address] Dr. Tasha Dodson IG % 0.2 % Normal 0.0-0.5 [facility] Comment on above: Performed By: #### C MADM, LIPA, BNP, CMP #### [facility] [address] [place] [address] Dr. Tasha Dodson LYMPH # 2.9 103/ul Normal 1.2-3.8 [facility] Comment on above: Performed By: #### C MADM, LIPA, BNP, CMP #### [facility] [address] [place] [address] Dr. Tasha Dodson Lymphocytes/100 WBC (Bld) 29.4 % Normal 20.5-60.0 [facility] Comment on above: Performed By: #### C MADM, LIPA, BNP, CMP #### [facility] [address] [place] [address] Dr. Tasha Dodson MANUAL DIFF REQ NO Normal [facility] Comment on above: Performed By: #### C MADM, LIPA, BNP, CMP #### [facility] [address] [place] [address] Dr. Tasha Dodson MCH (RBC) [Entitic mass] 34.1 pg Critically high 26.7-34.0 [facility] Comment on above: Performed By: #### C MADM, LIPA, BNP, CMP #### [facility] [address] [place] [address] Dr. Tasha Dodson MCHC (RBC) [Mass/Vol] 37.0 g/dL Critically high 29.9-35.2 [facility] Comment on above: Performed By: #### C MADM, LIPA, BNP, CMP #### [facility] [address] [place] [address] Dr. Tasha Dodson MCV (RBC) [Entitic vol] 92.1 fL Normal 81.0-99.0 [facility] Comment on above: Performed By: #### C MADM, LIPA, BNP, CMP #### [facility] [address] [place] [address] Dr. Tasha Dodson MONO # 0.8 103/ul Normal 0.3-0.8 [facility] Comment on above: Performed By: #### C MADM, LIPA, BNP, CMP #### [facility] [address] [place] [address] Dr. Tasha Dodson Monocytes/100 WBC (Bld) 8.2 % Normal 1.7-12.0 [facility] Comment on above: Performed By: #### C MADM, LIPA, BNP, CMP #### [facility] [address] [place] [address] Dr. Tasha Dodson NEUT # 5.9 103/ul Normal 1.4-6.5 [facility] Comment on above: Performed By: #### C MADM, LIPA, BNP, CMP #### [facility] [address] [place] [address] Dr. Tasha Dodson Neutrophils/100 WBC (Bld) 59.7 % Normal 43.0-75.0 [facility] Comment on above: Performed By: #### C MADM, LIPA, BNP, CMP #### [facility] [address] [place] [address] Dr. Tasha Dodson Platelet mean volume (Bld) [Entitic vol] 8.9 fL Critically low 9.5-13.5 [facility] Comment on above: Performed By: #### C MADM, LIPA, BNP, CMP #### [facility] [address] [place] [address] Dr. Tasha Dodson PLT 370 103/ul Normal 150-450 [facility] Comment on above: Performed By: #### C MADM, LIPA, BNP, CMP #### [facility] [address] [place] [address] Dr. Tasha Dodson RBC 3.67 106/ul Critically low 4.20-5.40 [facility] [facility] Comment on above: Performed By: #### C MADM, LIPA, BNP, CMP #### [facility] [address] [place] [address] Dr. Tasha Dodson WBC 9.9 103/ul Normal 4.0-11.0 [facility] Comment on above: Performed By: #### C MADM, LIPA, BNP, CMP #### [facility] [address] [place] [address] Dr. Tasha Dodson FREE T4on 11-09-2021 Free T4 [Mass/Vol] 1.48 ng/dL Critically high 0.76-1.46 [facility] Comment on above: Performed By: #### F T4 #### [facility] [address] [place] [address] Dr. Tasha Dodson PROF CHEM 8 (BAS METB)on Anion gap [Moles/Vol] 11.1 mmol/L Normal [facility] Comment on above: Performed By: #### T SH, BMP #### [facility] [address] [place] [address] Dr. Tasha Dodson Calcium [Mass/Vol] 9.3 mg/dL Normal 8.5-10.1 [facility] Comment on above: Performed By: #### T SH, BMP #### [facility] [address] [place] [address] Dr. Tasha Dodson Chloride [Moles/Vol] 92 mmol/L Critically low 98-107 [facility] Comment on above: Performed By: #### T SH, BMP #### [facility] [address] [address] [address] Tasha Dodson CO2 [Moles/Vol] 29.2 mmol/L Normal 21.0-32.0 [facility] Comment on above: Performed By: #### T SH, BMP #### [facility] [address] [address] [address] Tasha Dodson Creatinine [Mass/Vol] 0.68 mg/dL Normal 0.55-1.02 [facility] Comment on above: Performed By: #### T SH, BMP #### [facility] [address] [place] [address] Dr. Tasha Dodson EGFR-AF ICELANDIC >60 Normal >=60 [facility] Comment on above: Performed By: #### T SH, BMP #### [facility] [address] [place] [address] Dr. Tasha Dodson EGFR-NON AF ICELANDIC >60 Normal >=60 [facility] Comment on above: Performed By: #### T SH, BMP #### [facility] [address] [address] [address] Tasha Dodson Glucose [Mass/Vol] 109 mg/dL Critically high 74-106 [facility] Comment on above: Performed By: #### T SH, BMP #### [facility] [address] [address] [address] Tasha Dodson Potassium [Moles/Vol] 3.3 mmol/L Critically low 3.5-5.1 [facility] Comment on above: Performed By: #### T SH, BMP #### [facility] [address] [address] [address] Tasha Dodson Sodium [Moles/Vol] 129 mmol/L Critically low 136-145 Th [facility] Comment on above: Performed By: #### T SH, BMP #### [facility] [address] [place] [address] Dr. Tasha Dodson Urea nitrogen [Mass/Vol] 9.0 mg/dL Normal 7.0-18.0 [facility] Comment on above: Performed By: #### T SH, BMP #### [facility] [address] [address] [address] Tasha Dodson Urea nitrogen/Creatinine [Mass ratio] 13.2 mg/mg Normal [facility] Comment on above: Performed By: #### T SH, BMP #### [facility] [address] [address] [address] Tasha Dodson TSHon 11-09-2021 TSH 1.193 uIU/mL Normal 0.358-3.740 [facility] Comment on above: Performed By: #### T SH, BMP #### [facility] [address] [place] [address] Dr. Tasha Dodson LIPID PROFILEon 08-06-2021 CHOL-HDL RATIO NORM SEE BELOW Normal [facility] Comment on above: Result Comment: 3.3 - 4.4 LOW RISK 4.4 - 7.1 AVERAGE RISK 7.1 - 11.0 MODERATE RISK >11.0 HIGH RISK Performed By: #### C MADM, LIPA, BNP, CMP #### [facility] [address] [address] [address] Tasha Dodson Cholesterol [Mass/Vol] 198 mg/dL Normal <=200 [facility] Comment on above: Performed By: #### C MADM, LIPA, BNP, CMP #### [facility] [address] [address] [address] Tasha Dodson Cholesterol in HDL [Mass/Vol] 77 mg/dL Critically high 40-60 [facility] Comment on above: Performed By: #### C MADM, LIPA, BNP, CMP #### [facility] [address] [address] [address] Tasha Dodson Cholesterol in LDL [Mass/Vol] 106.0 mg/dL Normal [facility] Comment on above: Performed By: #### C MADM, LIPA, BNP, CMP #### [facility] [address] [address] [address] Tasha Dodson Cholesterol.total/Shahana sterol in HDL [Mass ratio] 2.6 {ratio} Normal [facility] Comment on above: Performed By: #### C MADM, LIPA, BNP, CMP #### [facility] [address] [address] [address] Tasha Dodson HDL NORMAL > or = 60 mg/dl - LO W CARDIOVASCULAR RISK <40 mg/dl - HIGH CARDIOVASCULAR RISK Normal [facility] Comment on above: Performed By: #### C MADM, LIPA, BNP, CMP #### [facility] [address] [address] [address] Tasha Dodson LDL CALC NORMAL SEE BELOW Normal [facility] Comment on above: Result Comment: <100 mg/dl OPTIMAL 100 - 129 mg/dl NEAR OR ABOVE OPTIMAL 130 - 159 mg/dl BORDERLINE HIGH 160 - 189 mg/dl HIGH >190 mg/dl VERY HIGH Performed By: #### C MADM, LIPA, BNP, CMP #### [facility] [address] [place] [address] Dr. Tasha Dodson Triglyceride [Mass/Vol] 75 mg/dL Normal <=150 T [facility] Comment on above: Performed By: #### C MADM, LIPA, BNP, CMP #### [facility] [address] [address] [address] Tasha Dodson VLDL CALC 15.0 mg/dL Normal [facility] Comment on above: Performed By: #### C MADM, LIPA, BNP, CMP #### [facility] [address] [address] [address] Tasha Dodson LIVER PROFILEon 08-06-2021 Albumin [Mass/Vol] 3.7 g/dL Normal 3.4-5.0 [facility] Comment on above: Performed By: #### C MADM, LIPA, BNP, CMP #### [facility] [address] [place] [address] Dr. Tasha Dodson Albumin/Globulin [Mass ratio] 1.0 {ratio} Normal [facility] Comment on above: Performed By: #### C MADM, LIPA, BNP, CMP #### [facility] [address] [place] [address] Dr. Tasha Dodson ALP [Catalytic activity/Vol] 62 U/L Normal 46-116 [facility] Comment on above: Performed By: #### C MADM, LIPA, BNP, CMP #### [facility] [address] [place] [address] Dr. Tasha Dodson ALT [Catalytic activity/Vol] 26 U/L Normal 14-59 [facility] Comment on above: Performed By: #### C MADM, LIPA, BNP, CMP #### [facility] [address] [place] [address] Dr. Tasha Dodson AST [Catalytic activity/Vol] 24 U/L Normal 15-37 [facility] Comment on above: Performed By: #### C MADM, LIPA, BNP, CMP #### [facility] [address] [place] [address] Dr. Tasha Dodson BILI, CONJUGATED 0.1 mg/dL Normal 0.0-0.2 [facility] Comment on above: Performed By: #### C MADM, LIPA, BNP, CMP #### [facility] [address] [place] [address] Dr. Tasha Dodson Bilirubin [Mass/Vol] 0.5 mg/dL Normal 0.2-1.0 [facility] Comment on above: Performed By: #### C MADM, LIPA, BNP, CMP #### [facility] [address] [place] [address] Dr. Tasha Dodson Globulin (S) [Mass/Vol] 3.8 g/dL Normal T [facility] Comment on above: Performed By: #### C MADM, LIPA, BNP, CMP #### [facility] [address] [place] [address] Dr. Tasha Dodson Protein [Mass/Vol] 7.5 g/dL Normal 6.4-8.2 [facility] Comment on above: Performed By: #### C MADM, LIPA, BNP, CMP #### [facility] [address] [place] [address] Dr. Tasha Dodson FREE T4on 07-28-2021 Free T4 [Mass/Vol] 1.32 ng/dL Normal 0.76-1.46 [facility] Comment on above: Performed By: #### T SH, BMP #### [facility] [address] [place] [address] Dr. Tasha Dodson PROF CHEM 8 (BAS METB)on Anion gap [Moles/Vol] 11.6 mmol/L Normal Th [facility] Comment on above: Performed By: #### B MP, TSH #### [facility] [address] [place] [address] Dr. Tasha Dodson Calcium [Mass/Vol] 9.4 mg/dL Normal 8.5-10.1 [facility] Comment on above: Performed By: #### B MP, TSH #### [facility] [address] [place] [address] Dr. Tasha Dodson Chloride [Moles/Vol] 93 mmol/L Critically low 98-107 [facility] Comment on above: Performed By: #### B MP, TSH #### [facility] [address] [place] [address] Dr. Tasha Dodson CO2 [Moles/Vol] 29.8 mmol/L Normal 21.0-32.0 [facility] Comment on above: Performed By: #### B MP, TSH #### [facility] [address] [place] [address] Dr. Tasha Dodson Creatinine [Mass/Vol] 0.74 mg/dL Normal 0.55-1.02 [facility] Comment on above: Performed By: #### B MP, TSH #### [facility] [address] [place] [address] Dr. Tasha Dodson EGFR-AF ICELANDIC >60 Normal >=60 [facility] Comment on above: Performed By: #### B MP, TSH #### [facility] [address] [place] [address] Dr. Tasha Dodson EGFR-NON AF ICELANDIC >60 Normal >=60 [facility] Comment on above: Performed By: #### B MP, TSH #### [facility] [address] [place] [address] Dr. Tasha Dodson Glucose [Mass/Vol] 114 mg/dL Critically high 74-106 T [facility] Comment on above: Performed By: #### B MP, TSH #### [facility] [address] [place] [address] Dr. Tasha Dodson Potassium [Moles/Vol] 3.4 mmol/L Critically low 3.5-5.1 [facility] Comment on above: Performed By: #### B MP, TSH #### [facility] [address] [place] [address] Dr. Tasha Dodson Sodium [Moles/Vol] 131 mmol/L Critically low 136-145 Th [facility] Comment on above: Performed By: #### B MP, TSH #### [facility] [address] [place] [address] Dr. Tasha Dodson Urea nitrogen [Mass/Vol] 12.0 mg/dL Normal 7.0-18.0 [facility] Comment on above: Performed By: #### B MP, TSH #### [facility] [address] [place] [address] Dr. Tasha Dodson Urea nitrogen/Creatinine [Mass ratio] 16.2 mg/mg Normal [facility] Comment on above: Performed By: #### B MP, TSH #### [facility] [address] [place] [address] Dr. Tasha Dodson TSHon 07-28-2021 TSH 1.790 uIU/mL Normal 0.358-3.740 [facility] Comment on above: Performed By: #### B MP, TSH #### [facility] [address] [place] [address] Dr. Tasha Dodson TSH RANGE SEE BELOW Normal [facility] Comment on above: Result Comment: <0.3 4 UIU/ml HYPERTHYROID 0.34-5.60 UIU/ml EUTHYROID >5.60 UIU/ml HYPOTHYROID Performed By: #### B MP, TSH #### [facility] [address] [place] [address] Dr. Tasha Dodson CBC Auto Differentialon 10-0 Basophils (Bld) [#/Vol] 0.1 10*3/uL 0 - 0.2 K/uL [place] Basophils/100 WBC (Bld) 1.1 % M [place] Eosinophils (Bld) [#/Vol] 0.2 10*3/uL 0 - 0.7 K/uL [place] Eosinophils/100 WBC (Bld) 1.4 % [place] Erythrocyte distribution width (RBC) [Ratio] 14.4 % 11.5 - 14.5 % [place] Hematocrit (Bld) [Volume fraction] 33.6 % Low 37 - 47 % [place] Hemoglobin (Bld) [Mass/Vol] 11.1 g/dL Low 12 - 16 g/dL [place] Interpretation and review of laboratory results Abnormal [place] Lymphocytes (Bld) [#/Vol] 2.3 10*3/uL 1 - 4.8 K/uL [place] Lymphocytes/100 WBC (Bld) 18.0 % [place] MCH (RBC) [Entitic mass] 29.5 pg 27 - 31.3 pg [place] MCHC (RBC) [Mass/Vol] 33.0 % 33 - 37 % [place] MCV (RBC) [Entitic vol] 89.5 fL 82 - 100 fL [place] Monocytes (Bld) [#/Vol] 0.9 10*3/uL High 0.2 - 0.8 K/uL [place] Monocytes/100 WBC (Bld) 6.9 % M [place] Neutrophils Absolute 9.1 K/uL High 1.4 - 6 .5 K/uL [place] Neutrophils/100 WBC (Bld) 72.6 % [place] Platelets (Bld) [#/Vol] 548 10*3/uL High 130 - 400 K/uL [place] RBC (Bld) [#/Vol] 3.75 10*6/uL [place] WBC (Bld) [#/Vol] 12.5 10*3/uL High 4.8 - 10.8 K/uL [facility], [place] CBC With Platelet and Differ entialon 11-20-2018 Basophils (Bld) [#/Vol] 0.1 10*3/uL Normal 0.0-0.2 [facility] Comment on above: Performed By: #### E SR #### [facility] [address] [place] [address] Basophils/100 WBC (Bld) 1.1 % Normal [facility] Comment on above: Performed By: #### E SR #### [facility] [address] [place] [address] Eosinophils (Bld) [#/Vol] 0.2 10*3/uL Normal 0.0-0.7 [facility] Comment on above: Performed By: #### E SR #### [facility] [address] [place] [address] Eosinophils/100 WBC (Bld) 1.4 % Normal [facility] Comment on above: Performed By: #### E SR #### [facility] [address] [place] [address] Erythrocyte distribution width (RBC) [Ratio] 14.4 % Normal 11.5-14.5 [facility] Comment on above: Performed By: #### E SR #### [facility] [address] [place] [address] Hematocrit (Bld) [Volume fraction] 33.6 % Low 37.0-47.0 [facility] Comment on above: Performed By: #### E SR #### [facility] [address] [place] [address] Hemoglobin (Bld) [Mass/Vol] 11.1 g/dL Low 12.0-16.0 [facility] Comment on above: Performed By: #### E SR #### [facility] [address] [place] [address] Lymphocytes (Bld) [#/Vol] 2.3 10*3/uL Normal 1.0-4.8 [facility] Comment on above: Performed By: #### E SR #### [facility] [address] [place] [address] Lymphocytes/100 WBC (Bld) 18.0 % Normal [facility] Comment on above: Performed By: #### E SR #### [facility] [address] [place] [address] MCH (RBC) [Entitic mass] 29.5 pg Normal 27.0-31.3 [facility] Comment on above: Performed By: #### E SR #### [facility] [address] [place] [address] MCHC (RBC) [Mass/Vol] 33.0 % Normal 33.0-37.0 [facility] Comment on above: Performed By: #### E SR #### [facility] [address] [place] [address] MCV (RBC) [Entitic vol] 89.5 fL Normal 82.0-100.0 [facility] Comment on above: Performed By: #### E SR #### [facility] [address] [place] [address] Monocytes (Bld) [#/Vol] 0.9 10*3/uL Critically high 0.2-0. 8 [facility] Comment on above: Performed By: #### E SR #### [facility] [address] [place] [address] Monocytes/100 WBC (Bld) 6.9 % Normal [facility] Comment on above: Performed By: #### E SR #### [facility] [address] [place] [address] Neutrophils (Bld) [#/Vol] 9.1 10*3/uL Critically high 1.4-6.5 [facility] Comment on above: Performed By: #### E SR #### [facility] [address] [place] [address] Neutrophils/100 WBC (Bld) 72.6 % Normal [facility] Comment on above: Performed By: #### E SR #### [facility] [address] [place] [address] Platelets (Bld) [#/Vol] 548 10*3/uL Critically high 130-40 0 [facility] Comment on above: Performed By: #### E SR #### [facility] [address] [place] [address] RBC (Bld) [#/Vol] 3.75 10*6/uL Low 4.20-5.40 [facility] Comment on above: Performed By: #### E SR #### [facility] [address] [place] [address] WBC (Bld) [#/Vol] 12.5 10*3/uL Critically high 4.8-10.8 [facility] Comment on above: Performed By: #### E SR #### [facility] [address] [place] [address] EKG 12 Leadon 11-20-2018 Atrial Rate 79 BPM [facility] [place] P [place] 58 degrees [facility] [place] P-R Interval 176 ms [facility] [place] Q-T Interval 404 ms [facility] [place] QRS Duration 130 ms [facility] [place] QTc Calculation (Bazett) 463 ms [facility] [place] R [place] -11 degrees [facility] [place] T [place] 5 degrees [facility] [place] Urea nitrogen [Mass/Vol] Normal sinus rhythm Right bundle branch block Moderate voltage criteria for LVH, may be normal variant Abnormal ECG When compared with ECG of 13-NOV-2018 08:33, No significant change was found Confirmed by Анна Zamarripa ([id number]) on 11/20/2018 9:39:56 AM [facility] [place] Ventricular Rate 79 BPM [facility] [place] Joseph, Chpo Incoming Results From [place] - 11/20/2018 9:40 AM EDT Normal sinus rhythm Right bundle branch block Moderate voltage criteria for LVH, may be normal variant Abnormal ECG When compared with ECG of 13-NOV-2018 08:33, No significant change was found Confirmed by Анна Zamarripa ([id number]) on 11/20/2018 9:39:56 AM [place] CBC Auto Differentialon 10-23 Neutrophils Absolute 6.1 K/uL 1.4 - 6 .5 K/uL [place] CBC With Platelet and Differ entialon 11-19-2018 Basophils (Bld) [#/Vol] 0.2 10*3/uL Normal 0.0-0.2 [place] Comment on above: Performed By: #### C MP #### [facility] [address] [place] [address] Basophils/100 WBC (Bld) 1.5 % Normal [place] Comment on above: Performed By: #### C MP #### [facility] [address] [place] [address] Eosinophils (Bld) [#/Vol] 0.3 10*3/uL Normal 0.0-0.7 [place] Comment on above: Performed By: #### C MP #### [facility] [address] [place] [address] Eosinophils/100 WBC (Bld) 2.5 % Normal [place] Comment on above: Performed By: #### C MP #### [facility] [address] [place] [address] Erythrocyte distribution width (RBC) [Ratio] 14.1 % Normal 11.5-14.5 [place] Comment on above: Performed By: #### C MP #### [facility] [address] [place] [address] Hematocrit (Bld) [Volume fraction] 29.3 % Low 37.0-47.0 [place] Comment on above: Performed By: #### C MP #### [facility] [address] [place] [address] Hemoglobin (Bld) [Mass/Vol] 10.1 g/dL Low 12.0-16.0 [place] Comment on above: Performed By: #### C MP #### [facility] [address] [place] [address] Lymphocytes (Bld) [#/Vol] 2.8 10*3/uL Normal 1.0-4.8 [place] Comment on above: Performed By: #### C MP #### [facility] [address] [place] [address] Lymphocytes/100 WBC (Bld) 27.3 % Normal [place] Comment on above: Performed By: #### C MP #### [facility] [address] [facility] [place] [address] MCH (RBC) [Entitic mass] 30.7 pg Normal 27.0-31.3 [place] Comment on above: Performed By: #### C MP #### [facility] [address] [facility] [place] [address] MCHC (RBC) [Mass/Vol] 34.6 % Normal 33.0-37.0 [place] Comment on above: Performed By: #### C MP #### [facility] [address] [place] [address] MCV (RBC) [Entitic vol] 88.9 fL Normal 82.0-100.0 [place] Comment on above: Performed By: #### C MP #### [facility] [address] [place] [address] Monocytes (Bld) [#/Vol] 0.9 10*3/uL Critically high 0.2-0. 8 [place] Comment on above: Performed By: #### C MP #### [facility] [address] [place] [address] Monocytes/100 WBC (Bld) 9.2 % Normal [place] Comment on above: Performed By: #### C MP #### [facility] [address] [place] [address] Neutrophils (Bld) [#/Vol] 6.1 10*3/uL Normal 1.4-6.5 [facility] Comment on above: Performed By: #### C MP #### [facility] [address] [place] [address] Neutrophils/100 WBC (Bld) 59.5 % Normal [place] Comment on above: Performed By: #### C MP #### [facility] [address] [place] [address] Platelets (Bld) [#/Vol] 396 10*3/uL Normal 130-400 [place] Comment on above: Performed By: #### C MP #### [facility] [address] [facility] [address] RBC (Bld) [#/Vol] 3.30 10*6/uL Low 4.20-5.40 [place] Comment on above: Performed By: #### C MP #### [facility] [address] [place] [address] WBC (Bld) [#/Vol] 10.2 10*3/uL Normal 4.8-10.8 [place] Comment on above: Performed By: #### C MP #### [facility] [address] [place] [address] High Sensitivity CRPon 11-19 High Sensitivity CRP 89.2 mg/L Critically high 0.0-5.0 [facility] Comment on above: Performed By: #### E SR #### [facility] [address] [place] [address] High sensitivity CRPon 11-19 CRP High Sensitivity 89.2 mg/L High 0 - 5 mg/L [place] Interpretation and review of laboratory results Abnormal [place] Otheron 11-19-2018 Interpretation and review of laboratory results Abnormal [place] Sedimentation Rateon 019 Sedimentation Rate 55 mm Critically high 0-30 M [facility] Comment on above: Performed By: #### C MP #### [facility] [address] [place] [address] Sed Rate 55 mm High 0 - 30 mm [place] Basic Metabolic Panelon - Anion gap [Moles/Vol] 14 mmol/L Normal 9-15 [facility] Comment on above: Performed By: #### C MP #### [facility] [address] [place] [address] Calcium [Mass/Vol] 8.8 mg/dL Normal 8.5-9.9 [facility] Comment on above: Performed By: #### C MP #### [facility] [address] [place] [address] Chloride [Moles/Vol] 95 mmol/L Normal 95-107 [facility] Comment on above: Performed By: #### C MP #### [facility] [address] [place] [address] CO2 [Moles/Vol] 26 mmol/L Normal 20-31 [facility] Comment on above: Performed By: #### C MP #### [facility] [address] [place] [address] Creatinine [Mass/Vol] 0.58 mg/dL Normal 0.50-0.90 [facility] Comment on above: Performed By: #### C MP #### [facility] [address] [place] [address] GFR/1.73 sq M predicted among blacks MDRD (S/P/Bld) [Vol rate/Area] mL/min/{1.73_m2} Normal >60 [facility] Comment on above: Result Comment: >60 mL/min/1.73m2 EGFR, calc. for ages 18 and older using the MDRD formula (not corrected for weight), is valid for stable renal function. Performed By: #### C MP #### [facility] [address] [place] [address] GFR/1.73 sq M.predicted MDRD (S/P/Bld) [Vol rate/Area] mL/min/{1.73_m2} Normal >60 [facility] Comment on above: Result Comment: >60 mL/min/1.73m2 EGFR, calc. for ages 18 and older using the MDRD formula (not corrected for weight), is valid for stable renal function. Performed By: #### C MP #### [facility] [address] [place] [address] Glucose [Mass/Vol] 156 mg/dL Critically high 70-99 M [facility] Comment on above: Performed By: #### C MP #### [facility] [address] [place] [address] Potassium [Moles/Vol] 3.3 mmol/L Low 3.4-4.9 [facility] Comment on above: Performed By: #### C MP #### [facility] [address] [place] [address] Sodium [Moles/Vol] 135 mmol/L Normal 135-144 [facility] Comment on above: Performed By: #### C MP #### [facility] [address] [place] [address] Urea nitrogen [Mass/Vol] 11 mg/dL Normal 8-23 [facility] Comment on above: Performed By: #### C MP #### [facility] [address] [place] [address] Anion gap [Moles/Vol] 14 mmol/L [facility] [place], [place] Calcium [Mass/Vol] 8.8 mg/dL 8.5 - 9.9 mg/dL [facility], [place] Chloride [Moles/Vol] 95 mmol/L [facility] [place] CO2 [Moles/Vol] 26 mmol/L [facility], [place] Creatinine [Mass/Vol] 0.58 mg/dL 0.5 - 0.9 mg/dL [facility], [place] GFR >60.0 >60 [facility] [place] Comment on above: >60 mL/min/1.73m2 EG FR, calc. for ages 18 and older using the MDRD formula (not corrected for weight), is valid for stable renal function. GFR Non- >60.0 >60 [place] Comment on above: >60 mL/min/1.73m2 EG FR, calc. for ages 18 and older using the MDRD formula (not corrected for weight), is valid for stable renal function. Glucose [Mass/Vol] 156 mg/dL High 70 - 99 mg/dL [place] Interpretation and review of laboratory results Abnormal [place] Potassium [Moles/Vol] 3.3 mmol/L [place] Sodium [Moles/Vol] 135 mmol/L [place] Urea nitrogen [Mass/Vol] 11 mg/dL 8 - 23 mg/dL [place] Magnesiumon 11-18-2018 Magnesium [Mass/Vol] 1.8 mg/dL Normal 1.7-2.4 [facility] Comment on above: Performed By: #### C MP #### [facility] [address] [address] Magnesium [Mass/Vol] 1.8 mg/dL 1.7 - 2 .4 mg/dL [place] TSH w/out Reflexon 9 TSH Qn 0.880 uIU/mL Normal 0.440-3.86 [facility] Comment on above: Performed By: #### C MP #### [facility] [address] [address] TSH without Reflexon 019 TSH Qn 0.880 m[IU]/L [place] CBC Auto Differentialon 10-22 Basophils (Bld) [#/Vol] 0.1 10*3/uL 0 - 0.2 K/uL [place] Basophils/100 WBC (Bld) 0.7 % M [place] Eosinophils (Bld) [#/Vol] 0.4 10*3/uL 0 - 0.7 K/uL [place] Eosinophils/100 WBC (Bld) 2.8 % [place] Erythrocyte distribution width (RBC) [Ratio] 14.2 % 11.5 - 14.5 % [place] Hematocrit (Bld) [Volume fraction] 32.3 % Low 37 - 47 % [place] Hemoglobin (Bld) [Mass/Vol] 10.8 g/dL Low 12 - 16 g/dL [place] Interpretation and review of laboratory results Abnormal [place] Lymphocytes (Bld) [#/Vol] 2.6 10*3/uL 1 - 4.8 K/uL [place] Lymphocytes/100 WBC (Bld) 16.8 % [place] MCH (RBC) [Entitic mass] 30.3 pg 27 - 31.3 pg [place] MCHC (RBC) [Mass/Vol] 33.4 % 33 - 37 % [place] MCV (RBC) [Entitic vol] 90.5 fL 82 - 100 fL [place] Monocytes (Bld) [#/Vol] 1.3 10*3/uL High 0.2 - 0.8 K/uL [place] Monocytes/100 WBC (Bld) 8.3 % M [place] Neutrophils Absolute 11.1 K/uL High 1.4 - 6 .5 K/uL [place] Neutrophils/100 WBC (Bld) 71.4 % [place] Platelets (Bld) [#/Vol] 375 10*3/uL 130 - 400 K/uL [place] RBC (Bld) [#/Vol] 3.57 10*6/uL [place] WBC (Bld) [#/Vol] 15.5 10*3/uL High 4.8 - 10.8 K/uL [place] CBC With Platelet and Differ entialon 11-17-2018 Basophils (Bld) [#/Vol] 0.1 10*3/uL Normal 0.0-0.2 [facility] Comment on above: Performed By: #### C MP #### [facility] [address] [facility] Basophils/100 WBC (Bld) 0.7 % Normal M [facility] Comment on above: Performed By: #### C MP #### [facility] [address] [place] [address] Eosinophils (Bld) [#/Vol] 0.4 10*3/uL Normal 0.0-0.7 [facility] Comment on above: Performed By: #### C MP #### [facility] [address] [place] [address] Eosinophils/100 WBC (Bld) 2.8 % Normal [facility] Comment on above: Performed By: #### C MP #### [facility] [address] [address] Erythrocyte distribution width (RBC) [Ratio] 14.2 % Normal 11.5-14.5 [facility] Comment on above: Performed By: #### C MP #### [facility] [address] [place] [address] Hematocrit (Bld) [Volume fraction] 32.3 % Low 37.0-47.0 [facility] Comment on above: Performed By: #### C MP #### [facility] [address] [place] [address] Hemoglobin (Bld) [Mass/Vol] 10.8 g/dL Low 12.0-16.0 [facility] Comment on above: Performed By: #### C MP #### [facility] [address] [place] [place] [address] Lymphocytes (Bld) [#/Vol] 2.6 10*3/uL Normal 1.0-4.8 [facility] Comment on above: Performed By: #### C MP #### [facility] [address] [address] Lymphocytes/100 WBC (Bld) 16.8 % Normal [facility] Comment on above: Performed By: #### C MP #### [facility] [address] [address] MCH (RBC) [Entitic mass] 30.3 pg Normal 27.0-31.3 [facility] Comment on above: Performed By: #### C MP #### [facility] [address] [address] MCHC (RBC) [Mass/Vol] 33.4 % Normal 33.0-37.0 [facility] Comment on above: Performed By: #### C MP #### [facility] [address] [address] MCV (RBC) [Entitic vol] 90.5 fL Normal 82.0-100.0 [facility] Comment on above: Performed By: #### C MP #### [facility] [address] [address] Monocytes (Bld) [#/Vol] 1.3 10*3/uL Critically high 0.2-0. 8 [facility] Comment on above: Performed By: #### C MP #### [facility] [address] [address] Monocytes/100 WBC (Bld) 8.3 % Normal [facility] Comment on above: Performed By: #### C MP #### [facility] [address] [place] [address] Neutrophils (Bld) [#/Vol] 11.1 10*3/uL Critically high 1.4-6.5 [facility] Comment on above: Performed By: #### C MP #### [facility] [address] [address] Neutrophils/100 WBC (Bld) 71.4 % Normal [facility] Comment on above: Performed By: #### C MP #### [facility] [address] [place] [address] Platelets (Bld) [#/Vol] 375 10*3/uL Normal 130-400 [facility] Comment on above: Performed By: #### C MP #### [facility] [address] [place] [address] RBC (Bld) [#/Vol] 3.57 10*6/uL Low 4.20-5.40 [facility] Comment on above: Performed By: #### C MP #### [facility] [address] [place] [address] WBC (Bld) [#/Vol] 15.5 10*3/uL Critically high 4.8-10.8 [facility] Comment on above: Performed By: #### C MP #### [facility] [address] [facility] [address] High Sensitivity CRPon 11-17 High Sensitivity CRP 230.1 mg/L Critically high 0.0-5.0 [facility] Comment on above: Performed By: #### C MP #### [facility] [address] [facility] [address] High sensitivity CRPon 11-17 CRP High Sensitivity 230.1 mg/L High 0 - 5 mg/L [place] Interpretation and review of laboratory results Abnormal [place] Sedimentation Rateon 019 Sedimentation Rate 50 mm Critically high 0-30 M [facility] Comment on above: Performed By: #### C MP #### [facility] [address] [address] Interpretation and review of laboratory results Abnormal [place] Sed Rate 50 mm High 0 - 30 mm [place] DUP LOWER EXTREMITIES VAUGHN ATERAL VENOUSon 11-17-2018 NO DVT IDENTIFIED IN EITHER LOWER EXTREMITY. [facility] [place], [place] Incoming Radiant Results From [employer] - 11/17/2018 8:05 AM EDT US DUP [...] NO DVT IDENTIFIED IN EITHER LOWER EXTREMITY. [place] DUP LOWER EXTREMITIES BILATERAL VENOUS : 11/16/2018 CLINICAL HISTORY: LEG SWELLING, PAIN, DVT SUSPECTED . COMPARISON: None available. Grayscale, compression, color and waveform Doppler analysis of both lower extremity deep venous systems was performed with augmentation. FINDINGS: There is no deep venous thrombosis, abnormal masses, fluid collections or other findings of concern identified within either lower extremity. [place] Urine Cultureon 11-17-2018 Bacteria identified Cx Nom (U) No growth 24 hours [place] ORDERED BY: MAMI COKER SOURCE: Urine Clean Catch COLLECTED: 11/15/18 19:05 ANTIBIOTICS AT DI.: RECEIVED : 11/15/18 19:05 [place] CBC With Platelet and Differ entialon 11-16-2018 Neutrophils (Bld) [#/Vol] 15.5 10*3/uL Critically high 1.4-6.5 [facility] Comment on above: Performed By: #### P TT #### [facility] [address] [facility] [address] Basophils (Bld) [#/Vol] 0.2 10*3/uL Normal 0.0-0.2 [place] Comment on above: Performed By: #### P TT #### [facility] [address] [facility] [address] Basophils/100 WBC (Bld) 0.9 % Normal M [place] Comment on above: Performed By: #### P TT #### [facility] [address] [facility] [address] Eosinophils (Bld) [#/Vol] 0.1 10*3/uL Normal 0.0-0.7 [place] Comment on above: Performed By: #### P TT #### [facility] [address] [facility] [address] Eosinophils/100 WBC (Bld) 0.8 % Normal [place] Comment on above: Performed By: #### P TT #### [facility] [address] [place] [address] Erythrocyte distribution width (RBC) [Ratio] 14.4 % Normal 11.5-14.5 [place] Comment on above: Performed By: #### P TT #### [facility] [address] [address] Hematocrit (Bld) [Volume fraction] 33.4 % Low 37.0-47.0 [place] Comment on above: Performed By: #### P TT #### [facility] [address] [facility] [place] [address] Hemoglobin (Bld) [Mass/Vol] 11.0 g/dL Low 12.0-16.0 [place] Comment on above: Performed By: #### P TT #### [facility] [address] [facility] [address] [place] [place] [address] Lymphocytes (Bld) [#/Vol] 1.5 10*3/uL Normal 1.0-4.8 [place] Comment on above: Performed By: #### P TT #### [facility] [address] [facility] [place] [address] Lymphocytes/100 WBC (Bld) 7.9 % Normal [place] Comment on above: Performed By: #### P TT #### [facility] [address] [address] MCH (RBC) [Entitic mass] 29.4 pg Normal 27.0-31.3 [place] Comment on above: Performed By: #### P TT #### [facility] [address] [facility] [address] [place] [address] MCHC (RBC) [Mass/Vol] 32.9 % Low 33.0-37.0 [place] Comment on above: Performed By: #### P TT #### [facility] [address] [place] [address] MCV (RBC) [Entitic vol] 89.4 fL Normal 82.0-100.0 [place] Comment on above: Performed By: #### P TT #### [facility] [address] [place] [address] Monocytes (Bld) [#/Vol] 1.3 10*3/uL Critically high 0.2-0. 8 [place] Comment on above: Performed By: #### P TT #### [facility] [address] [place] [address] Monocytes/100 WBC (Bld) 7.1 % Normal [place] Comment on above: Performed By: #### P TT #### [facility] [address] [address] Neutrophils/100 WBC (Bld) 83.3 % Normal [place] Comment on above: Performed By: #### P TT #### [facility] [address] [facility] [address] Platelets (Bld) [#/Vol] 304 10*3/uL Normal 130-400 [place] Comment on above: Performed By: #### P TT #### [facility] [address] [facility] [address] RBC (Bld) [#/Vol] 3.74 10*6/uL Low 4.20-5.40 [place] Comment on above: Performed By: #### P TT #### [facility] [address] [place] [address] WBC (Bld) [#/Vol] 18.6 10*3/uL Critically high 4.8-10.8 [place] Comment on above: Performed By: #### P TT #### [facility] [address] [place] [address] CBC auto differentialon 10-22 Interpretation and review of laboratory results Abnormal [place] Neutrophils Absolute 15.5 K/uL High 1.4 - 6 .5 K/uL [place] ECHO Complete 2D W Doppler W Coloron 11-16-2018 Transthoracic Echocardiography Report (TTE) Demographics Patient Name MERCY GANDHI Gender Female Patient Number [id number] Race Unknown Ethnicity Visit Number [id number] Room Number R238 Corporate ID Date of Study 11/16/2018 Referring Physician DO Natalia Dickens Date of 1935 [employer] 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 Age 83 year(s) Interpreting [facility] Physician Cardiology Cain Quinonez MD Procedure [...] Gradient: 4.03 mmHg Estimated PASP: 40.86 mmHg [place] ED Velocity: 1.27 m/s LVOT Peak Velocity: [...] Root: 2.35 cm LVOT Diameter: 1.65 cm [facility]- [place] Joseph, Chpo Incoming Cardiovascular Results From [facility] - 11/16/2018 5:05 PM EDT Transthoracic Echocardiography Report (TTE) Demographics Patient Name MERCY GANDHI Gender Female Patient Number [id number] Race Unknown Ethnicity Visit Number [id number] Room Number R238 Corporate ID Date of Study 11/16/2018 Referring Physician DO Natalia Dickens 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[facility] Age 83 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(s) Interpreting [facility] Physician Cardiology Cain Quinonez MD Procedure [...] Gradient: 4.03 mmHg Estimated PASP: 40.86 mmHg [place] ED Velocity: 1.27 m/s LVOT Peak Velocity: [...] Root: 2.35 cm LVOT Diameter: 1.65 cm [place] Microscopic Urinalysison Bacteria, UA Negative /HPF [place] Epi Cells 3-5 /HPF [place] Interpretation and review of laboratory results Abnormal [place] RBC (U) [#/Vol] 3-5 Abnormal [place] Renal Epithelial, Urine 0-2 Abnormal /HPF [place] WBC, UA None seen [place] CAROTID ARTERY BILATERALo n 11-16-2018 [...] Damped resistive CCA decreased decreased resistive CCA [employer] Incoming Radiant Results From [employer] - 11/16/2018 10:40 AM EDT Patient : [...] Damped resistive CCA decreased decreased resistive CCA [place] Patient 5 : 1935 Age: 83 [...] and noncalcified plaque bilateral carotid arterial systems [facility], [place] US DUP LOWER EXTREMITIES VAUGHN ATERAL VENOUSon [...] De Souza MD 11/17/18 Final result Normal [facility] Urine Microscopicon 11-17-19 19 Bacteria LM.HPF (Urine sed) [#/Area] Negative Normal [facility] Comment on above: Performed By: #### P TT #### [facility] [address] [facility] [address] Epithelial cells LM Ql (Urine sed) 3-5 Normal [facility] Comment on above: Performed By: #### P TT #### [facility] [address] [facility] [address] RBC (U) [#/Vol] 3-5 Abnormal 0-2 [facility] Comment on above: Performed By: #### P TT #### [facility] [address] [facility] [address] Urine Renal Epithelial 0-2 Abnormal [facility] Comment on above: Performed By: #### P TT #### [facility] [address] [place] [address] WBC (U) [#/Vol] None seen Normal 0-5 [facility] Comment on above: Performed By: #### P TT #### [facility] [address] [place] [address] XR CHEST PORTABLEon 11-17-19 19 Joseph, Chpo Incoming Radiant Results From [employer] - 11/16/2018 10:21 AM EDT EXAMINATION: XR CHEST PORTABLE CLINICAL HISTORY: fever . History of back surgery. COMPARISONS: None available. FINDINGS: Single AP portable view the chest obtained on November 15, 2018 at 2124 hours. The heart is not enlarged. Mediastinum is not widened. Calcified aorta is not dilated. Lungs are clear. The chest wall is unremarkable. CONCLUSION: NO ACUTE PROCESS [place] EXAMINATION: XR CHES T PORTABLE CLINICAL HISTORY: fever . History of back surgery. COMPARISONS: None available. FINDINGS: Single AP portable view the chest obtained on November 15, 2018 at 2124 hours. The heart is not enlarged. Mediastinum is not widened. Calcified aorta is not dilated. Lungs are clear. The chest wall is unremarkable. CONCLUSION: NO ACUTE PROCESS [place] CBC Auto Differentialon 10-22 Anisocytosis Ql (Bld) 1+ [place] Bands Relative 4 % Low 5 - 11 % [place] Basophils (Bld) [#/Vol] 0.0 10*3/uL 0 - 0.2 K/uL [place] Basophils/100 WBC (Bld) 0.6 % M [place] Eosinophils (Bld) [#/Vol] 0.0 10*3/uL 0 - 0.7 K/uL [place] Eosinophils/100 WBC (Bld) 0.9 % [place] Erythrocyte distribution width (RBC) [Ratio] 14.6 % High 11.5 - 14.5 % [place] Hematocrit (Bld) [Volume fraction] 33.3 % Low 37 - 47 % [place] Hemoglobin (Bld) [Mass/Vol] 10.9 g/dL Low 12 - 16 g/dL [place] Interpretation and review of laboratory results Abnormal [place] Lymphocytes (Bld) [#/Vol] 3.5 10*3/uL 1 - 4.8 K/uL [place] Lymphocytes/100 WBC (Bld) 17.0 % [place] MCH (RBC) [Entitic mass] 29.8 pg 27 - 31.3 pg [place] MCHC (RBC) [Mass/Vol] 32.9 % Low 33 - 37 % [place] MCV (RBC) [Entitic vol] 90.7 fL 82 - 100 fL [place] Microcytes 1+ [place] Monocytes (Bld) [#/Vol] 0.0 10*3/uL Low 0.2 - 0.8 K/uL [place] Monocytes/100 WBC (Bld) 7.7 % M [place] Neutrophils Absolute 17.3 K/uL High 1.4 - 6 .5 K/uL [place] Neutrophils/100 WBC (Bld) 79.0 % [place] PLATELET SLIDE REVIEW Normal [place] Platelets (Bld) [#/Vol] 315 10*3/uL 130 - 400 K/uL [place] RBC (Bld) [#/Vol] 3.67 10*6/uL Low [place] WBC (Bld) [#/Vol] 20.8 10*3/uL High 4.8 - 10.8 K/uL [place] CBC With Platelet No Differe ntialon 11-15-2018 Erythrocyte distribution width (RBC) [Ratio] 14.5 % Normal 11.5-14.5 [facility] Comment on above: Performed By: #### P TT #### [facility] [address] [place] [id number] Hematocrit (Bld) [Volume fraction] 36.9 % Low 37.0-47.0 [facility] Comment on above: Performed By: #### P TT #### [facility] [address] [place] [address] Hemoglobin (Bld) [Mass/Vol] 11.9 g/dL Low 12.0-16.0 [facility] Comment on above: Performed By: #### P TT #### [facility] [address] [place] [address] MCH (RBC) [Entitic mass] 29.4 pg Normal 27.0-31.3 [facility] Comment on above: Performed By: #### P TT #### [facility] [address] [place] [address] MCHC (RBC) [Mass/Vol] 32.3 % Low 33.0-37.0 [facility] Comment on above: Performed By: #### P TT #### [facility] [address] [place] [address] MCV (RBC) [Entitic vol] 91.1 fL Normal 82.0-100.0 [facility] Comment on above: Performed By: #### P TT #### [facility] [address] [place] [address] Platelets (Bld) [#/Vol] 341 10*3/uL Normal 130-400 [facility] Comment on above: Performed By: #### P TT #### [facility] [address] [place] [address] RBC (Bld) [#/Vol] 4.05 10*6/uL Low 4.20-5.40 [facility] Comment on above: Performed By: #### P TT #### [facility] [address] [place] [address] WBC (Bld) [#/Vol] 19.8 10*3/uL Critically high 4.8-10.8 [facility] Comment on above: Performed By: #### P TT #### [facility] [address] [place] [address] CBC With Platelet and Differ entialon 11-15-2018 Anisocytosis Ql (Bld) 1+ Normal [facility] Comment on above: Performed By: #### P TT #### [facility] [address] [place] [address] Bands 4 % Low 5-11 [facility] Comment on above: Performed By: #### P TT #### [facility] [address] [place] [address] Basophils (Bld) [#/Vol] 0.0 10*3/uL Normal 0.0-0.2 [facility] Comment on above: Performed By: #### P TT #### [facility] [address] [place] [address] Basophils/100 WBC (Bld) 0.6 % Normal M [facility] Comment on above: Performed By: #### P TT #### [facility] [address] [place] [address] Eosinophils (Bld) [#/Vol] 0.0 10*3/uL Normal 0.0-0.7 [facility] Comment on above: Performed By: #### P TT #### [facility] [address] [place] [address] Eosinophils/100 WBC (Bld) 0.9 % Normal [facility] Comment on above: Performed By: #### P TT #### [facility] [address] [place] [address] Lymphocytes (Bld) [#/Vol] 3.5 10*3/uL Normal 1.0-4.8 [facility] Comment on above: Performed By: #### P TT #### [facility] [address] [place] [address] Lymphocytes/100 WBC (Bld) 17.0 % Normal [facility] Comment on above: Performed By: #### P TT #### [facility] [address] [place] [address] Microcytic 1+ Normal [facility] Comment on above: Performed By: #### P TT #### [facility] [address] [place] [address] Monocytes (Bld) [#/Vol] 0.0 10*3/uL Low 0.2-0.8 [facility] Comment on above: Performed By: #### P TT #### [facility] [address] [place] [address] Monocytes/100 WBC (Bld) 7.7 % Normal M [facility] Comment on above: Performed By: #### P TT #### [facility] [address] [place] [address] Neutrophils (Bld) [#/Vol] 17.3 10*3/uL Critically high 1.4-6.5 [facility] Comment on above: Performed By: #### P TT #### [facility] [address] [place] [address] Neutrophils/100 WBC (Bld) 79.0 % Normal [facility] Comment on above: Performed By: #### P TT #### [facility] [address] [place] [address] Platelet Slide Review Normal Normal [facility] Comment on above: Performed By: #### P TT #### [facility] [address] [place] [address] Erythrocyte distribution width (RBC) [Ratio] 14.6 % Critically high 11.5-14.5 [facility] Comment on above: Performed By: #### P TT #### [facility] [address] [place] [address] Hematocrit (Bld) [Volume fraction] 33.3 % Low 37.0-47.0 [facility] Comment on above: Performed By: #### P TT #### [facility] [address] [place] [address] Hemoglobin (Bld) [Mass/Vol] 10.9 g/dL Low 12.0-16.0 [facility] Comment on above: Performed By: #### P TT #### [facility] [address] [place] [address] MCH (RBC) [Entitic mass] 29.8 pg Normal 27.0-31.3 [facility] Comment on above: Performed By: #### P TT #### [facility] [address] [place] [address] MCHC (RBC) [Mass/Vol] 32.9 % Low 33.0-37.0 [facility] Comment on above: Performed By: #### P TT #### [facility] [address] [address] MCV (RBC) [Entitic vol] 90.7 fL Normal 82.0-100.0 M [facility] Comment on above: Performed By: #### P TT #### [facility] [address] [place] [address] Platelets (Bld) [#/Vol] 315 10*3/uL Normal 130-400 [facility] Comment on above: Performed By: #### P TT #### [facility] [address] [place] [address] RBC (Bld) [#/Vol] 3.67 10*6/uL Low 4.20-5.40 [facility] Comment on above: Performed By: #### P TT #### [facility] [address] [address] WBC (Bld) [#/Vol] 20.8 10*3/uL Critically high 4.8-10.8 [facility] Comment on above: Performed By: #### P TT #### [facility] [address] [place] [address] Comprehensive Metabolic Pane l reflex Mgon 11-15-2018 Albumin [Mass/Vol] 3.3 g/dL Low 3.5-4.6 [facility] Comment on above: Performed By: #### P TT #### [facility] [address] [place] [address] ALP [Catalytic activity/Vol] 71 U/L Normal 40-130 [facility] Comment on above: Performed By: #### P TT #### [facility] [address] [place] [address] ALT [Catalytic activity/Vol] 12 U/L Normal 0-33 [facility] Comment on above: Performed By: #### P TT #### [facility] [address] [place] [address] Anion gap [Moles/Vol] 11 mmol/L Normal 9-15 [facility] Comment on above: Performed By: #### P TT #### [facility] [address] [place] [address] AST [Catalytic activity/Vol] 28 U/L Normal 0-35 [facility] Comment on above: Performed By: #### P TT #### [facility] [address] [place] [address] Bilirubin [Mass/Vol] 0.4 mg/dL Normal 0.2-0.7 [facility] Comment on above: Performed By: #### P TT #### [facility] [address] [place] [address] Calcium [Mass/Vol] 9.1 mg/dL Normal 8.5-9.9 [facility] Comment on above: Performed By: #### P TT #### [facility] [address] [place] [address] Chloride [Moles/Vol] 98 mmol/L Normal 95-107 [facility] Comment on above: Performed By: #### P TT #### [facility] [address] [place] [address] CO2 [Moles/Vol] 27 mmol/L Normal 20-31 [facility] Comment on above: Performed By: #### P TT #### [facility] [address] [place] [address] Creatinine [Mass/Vol] 0.59 mg/dL Normal 0.50-0.90 [facility] Comment on above: Performed By: #### P TT #### [facility] [address] [place] [address] GFR/1.73 sq M predicted among blacks MDRD (S/P/Bld) [Vol rate/Area] mL/min/{1.73_m2} Normal >60 [facility] Comment on above: Result Comment: >60 mL/min/1.73m2 EGFR, calc. for ages 18 and older using the MDRD formula (not corrected for weight), is valid for stable renal function. Performed By: #### P TT #### [facility] [address] [place] [address] GFR/1.73 sq M.predicted MDRD (S/P/Bld) [Vol rate/Area] mL/min/{1.73_m2} Normal >60 [facility] Comment on above: Result Comment: >60 mL/min/1.73m2 EGFR, calc. for ages 18 and older using the MDRD formula (not corrected for weight), is valid for stable renal function. Performed By: #### P TT #### [facility] [address] [place] [address] Globulin (S) [Mass/Vol] 3.2 g/dL Normal 2.3-3.5 M [facility] Comment on above: Performed By: #### P TT #### [facility] [address] [place] [address] Glucose [Mass/Vol] 123 mg/dL Critically high 70-99 M [facility] Comment on above: Performed By: #### P TT #### [facility] [address] [place] [address] Potassium reflex Mg 3.8 mEq/L Normal 3.4-4.9 [facility] Comment on above: Performed By: #### P TT #### [facility] [address] [place] [address] Protein [Mass/Vol] 6.5 g/dL Normal 6.3-8.0 [facility] Comment on above: Performed By: #### P TT #### [facility] [address] [place] [address] Sodium [Moles/Vol] 136 mmol/L Normal 135-144 [facility] Comment on above: Performed By: #### P TT #### [facility] [address] [place] [address] Urea nitrogen [Mass/Vol] 6 mg/dL Low 8-23 [facility] Comment on above: Performed By: #### P TT #### [facility] [address] [place] [address] Culture, Blood 2on 9 Culture, Blood 2 ORDERED BY: MAMI COKER SOURCE: Blood COLLECTED: 11/15/18 16:37 ANTIBIOTICS AT DI.: RECEIVED : 11/15/18 16:42 Culture, Blood 2 FINAL 11/20/18 18:15 No growth after 5 days of incubation. Normal [facility] Comment on above: Performed By: #### C MP #### [facility] [address] [place] [address] Culture, Urineon 11-15-2018 Culture, Urine ORDERED BY: MAMI COKER SOURCE: Urine Clean Catch COLLECTED: 11/15/18 19:05 ANTIBIOTICS AT DI.: RECEIVED : 11/15/18 19:05 Culture, Urine FINAL 11/17/18 07:28 No growth 24 hours Normal [facility] Comment on above: Performed By: #### C MP #### [facility] [address] [place] [address] URINE RT REFLEX TO CULTUREon 11-15-2018 Bilirubin Urine Negative Negative [facility] [place] Blood, Urine TRACE Abnormal Negative [facility] [place] Clarity, UA Clear Clear [facility] [place] Color, UA Yellow Straw/Yello w [facility] Glucose, Ur Negative Negative mg/dL [facility] [place] Interpretation and review of laboratory results Abnormal [facility], [place] Ketones Ql (U) Negative Negative mg/dL [facility] [place] Leukocyte esterase Test strip Ql (U) Negative Negative [place], [place] Nitrite, Urine Negative Negative [place] pH, UA 7.0 [place] Protein (U) [Mass/Vol] 30 mg/dL Abnormal Negative [place], [place] Specific [place], UA 1.014 [place], [place] Urine Reflex to Culture YES M [place], [place] Urobilinogen, Urine 0.2 <2.0 E.U./dL [place] CAROTID ARTERY BILATERALo n 11-15-2018 [...] Mohsen Childers MD 11/16/18 Final result Normal [facility] Urinalysis, reflex to cultur kendall 11-15-2018 Bilirubin Ql (U) Negative Normal Negative [facility] Comment on above: Performed By: #### P TT #### [facility] [address] [place] [address] Clarity (U) Clear Normal Clear [facility] Comment on above: Performed By: #### P TT #### [facility] [address] [place] [address] Color (U) Yellow Normal Straw/Swift [facility] Comment on above: Performed By: #### P TT #### [facility] [address] [place] [address] Glucose Ql (U) Negative Normal Negative [facility] Comment on above: Performed By: #### P TT #### [facility] [address] [place] [address] Hemoglobin Ql (U) TRACE Abnormal Negative [facility] Comment on above: Performed By: #### P TT #### [facility] [address] [place] [address] Ketones Ql (U) Negative Normal Negative [facility] Comment on above: Performed By: #### P TT #### [facility] [address] [place] [address] Leukocyte esterase Test strip Ql (U) Negative Normal Negative [facility] Comment on above: Performed By: #### P TT #### [facility] [address] [place] [address] Nitrite Ql (U) Negative Normal Negative [facility] Comment on above: Performed By: #### P TT #### [facility] [address] [address] pH (U) 7.0 [pH] Normal 5.0-9.0 [facility] Comment on above: Performed By: #### P TT #### [facility] [address] [place] [address] Protein Ql (U) 30 mg/dL Abnormal Negative [facility] Comment on above: Performed By: #### P TT #### [facility] [address] [place] [address] Specific gravity (U) [Rel density] 1.014 Normal 1.005-1.03 [facility] Comment on above: Performed By: #### P TT #### [facility] [address] [place] [address] Urine Reflexed to Culture YES Normal [facility] Comment on above: Performed By: #### P TT #### [facility] [address] [place] [address] Urobilinogen Qn (U) 0.2 {Juan'U}/dL Normal < 2.0 [facility] Comment on above: Performed By: #### P TT #### [facility] [address] [place] [address] XR CHEST PORTABLEon 11-16-19 XR CHEST PORTABLE [...] Pearl Varghese MD 11/16/18 Final result Normal [facility] Basic Metabolic Panel Reflex Mgon 11-14-2018 Anion gap [Moles/Vol] 10 mmol/L Normal 9-15 [facility] Comment on above: Performed By: #### P T #### [facility] [address] [place] [address] Calcium [Mass/Vol] 8.4 mg/dL Low 8.5-9.9 [facility] Comment on above: Performed By: #### P T #### [facility] [address] [place] [address] Chloride [Moles/Vol] 100 mmol/L Normal 95-107 [facility] Comment on above: Performed By: #### P T #### [facility] [address] [place] [address] CO2 [Moles/Vol] 25 mmol/L Normal 20-31 [facility] Comment on above: Performed By: #### P T #### [facility] [address] [place] [address] Creatinine [Mass/Vol] 0.66 mg/dL Normal 0.50-0.90 [facility] Comment on above: Performed By: #### P T #### [facility] [address] [place] [address] GFR/1.73 sq M predicted among blacks MDRD (S/P/Bld) [Vol rate/Area] mL/min/{1.73_m2} Normal >60 [facility] Comment on above: Result Comment: >60 mL/min/1.73m2 EGFR, calc. for ages 18 and older using the MDRD formula (not corrected for weight), is valid for stable renal function. Performed By: #### P T #### [facility] [address] [place] [address] GFR/1.73 sq M.predicted MDRD (S/P/Bld) [Vol rate/Area] mL/min/{1.73_m2} Normal >60 [facility] Comment on above: Result Comment: >60 mL/min/1.73m2 EGFR, calc. for ages 18 and older using the MDRD formula (not corrected for weight), is valid for stable renal function. Performed By: #### P T #### [facility] [address] [place] [address] Glucose [Mass/Vol] 144 mg/dL Critically high 70-99 [facility] Comment on above: Performed By: #### P T #### [facility] [address] [place] [address] Potassium reflex Mg 4.1 mEq/L Normal 3.4-4.9 [facility] Comment on above: Performed By: #### P T #### [facility] [address] [place] [address] Sodium [Moles/Vol] 135 mmol/L Normal 135-144 [facility] Comment on above: Performed By: #### P T #### [facility] [address] [place] [address] Urea nitrogen [Mass/Vol] 6 mg/dL Low 8-23 [facility] Comment on above: Performed By: #### P T #### [facility] [address] [place] [address] CBC With Platelet and Differ entialon 11-14-2018 Basophils (Bld) [#/Vol] 0.1 10*3/uL Normal 0.0-0.2 [facility] Comment on above: Performed By: #### P T #### [facility] [address] [place] [address] Basophils/100 WBC (Bld) 0.5 % Normal [facility] Comment on above: Performed By: #### P T #### [facility] [address] [place] [address] Eosinophils (Bld) [#/Vol] 0.1 10*3/uL Normal 0.0-0.7 [facility] Comment on above: Performed By: #### P T #### [facility] [address] [place] [address] Eosinophils/100 WBC (Bld) 0.8 % Normal [facility] Comment on above: Performed By: #### P T #### [facility] [address] [place] [address] Erythrocyte distribution width (RBC) [Ratio] 14.1 % Normal 11.5-14.5 [facility] Comment on above: Performed By: #### P T #### [facility] [address] [place] [address] Hematocrit (Bld) [Volume fraction] 35.4 % Low 37.0-47.0 [facility] Comment on above: Performed By: #### P T #### [facility] [address] [place] [address] Hemoglobin (Bld) [Mass/Vol] 11.7 g/dL Low 12.0-16.0 [facility] Comment on above: Performed By: #### P T #### [facility] [address] [place] [address] Lymphocytes (Bld) [#/Vol] 2.7 10*3/uL Normal 1.0-4.8 [facility] Comment on above: Performed By: #### P T #### [facility] [address] [place] [address] Lymphocytes/100 WBC (Bld) 15.7 % Normal [facility] Comment on above: Performed By: #### P T #### [facility] [address] [place] [address] MCH (RBC) [Entitic mass] 29.7 pg Normal 27.0-31.3 [facility] Comment on above: Performed By: #### P T #### [facility] [address] [place] [address] MCHC (RBC) [Mass/Vol] 33.1 % Normal 33.0-37.0 [facility] Comment on above: Performed By: #### P T #### [facility] [address] [place] [address] MCV (RBC) [Entitic vol] 89.6 fL Normal 82.0-100.0 [facility] Comment on above: Performed By: #### P T #### [facility] [address] [place] [address] Monocytes (Bld) [#/Vol] 1.4 10*3/uL Critically high 0.2-0. 8 [facility] Comment on above: Performed By: #### P T #### [facility] [address] [place] [address] Monocytes/100 WBC (Bld) 7.9 % Normal [facility] Comment on above: Performed By: #### P T #### [facility] [address] [place] [address] Neutrophils (Bld) [#/Vol] 12.8 10*3/uL Critically high 1.4-6.5 [facility] Comment on above: Performed By: #### P T #### [facility] [address] [place] [address] Neutrophils/100 WBC (Bld) 75.1 % Normal [facility] Comment on above: Performed By: #### P T #### [facility] [address] [place] [address] Platelets (Bld) [#/Vol] 345 10*3/uL Normal 130-400 [facility] Comment on above: Performed By: #### P T #### [facility] [address] [place] [address] RBC (Bld) [#/Vol] 3.95 10*6/uL Low 4.20-5.40 [facility] Comment on above: Performed By: #### P T #### [facility] [address] [place] [address] WBC (Bld) [#/Vol] 17.0 10*3/uL Critically high 4.8-10.8 [facility] Comment on above: Performed By: #### P T #### [facility] [address] [place] [address] POCT Glucoseon 11-14-2018 Glucose [Mass/Vol] 116 mg/dL Critically high 60-115 M [facility] Comment on above: Performed By: #### P T #### [facility] [address] [place] [address] POC Performed on ACCU-CHEK Normal [facility] Comment on above: Performed By: #### P T #### [facility] [address] [place] [address] XR LUMBAR SPINE (2-3 VIEWS)o n 11-14-2018 [...] Mohsen Childers MD 11/14/18 Final result Normal [facility] Basic Metabolic Panel Reflex Mgon 11-13-2018 Anion gap [Moles/Vol] 13 mmol/L Normal 9-15 [facility] Comment on above: Performed By: #### P T #### [facility] [address] [place] [address] Calcium [Mass/Vol] 9.0 mg/dL Normal 8.5-9.9 [facility] Comment on above: Performed By: #### P T #### [facility] [address] [place] [address] Chloride [Moles/Vol] 101 mmol/L Normal 95-107 [facility] Comment on above: Performed By: #### P T #### [facility] [address] [place] [address] CO2 [Moles/Vol] 24 mmol/L Normal 20-31 [facility] Comment on above: Performed By: #### P T #### [facility] [address] [place] [address] Creatinine [Mass/Vol] 0.62 mg/dL Normal 0.50-0.90 [facility] Comment on above: Performed By: #### P T #### [facility] [address] [place] [address] GFR/1.73 sq M predicted among blacks MDRD (S/P/Bld) [Vol rate/Area] mL/min/{1.73_m2} Normal >60 [facility] Comment on above: Result Comment: >60 mL/min/1.73m2 EGFR, calc. for ages 18 and older using the MDRD formula (not corrected for weight), is valid for stable renal function. Performed By: #### P T #### [facility] [address] [place] [address] GFR/1.73 sq M.predicted MDRD (S/P/Bld) [Vol rate/Area] mL/min/{1.73_m2} Normal >60 [facility] Comment on above: Result Comment: >60 mL/min/1.73m2 EGFR, calc. for ages 18 and older using the MDRD formula (not corrected for weight), is valid for stable renal function. Performed By: #### P T #### [facility] [address] [place] [address] Glucose [Mass/Vol] 136 mg/dL Critically high 70-99 M [facility] Comment on above: Performed By: #### P T #### [facility] [address] [place] [address] Potassium reflex Mg 3.6 mEq/L Normal 3.4-4.9 [facility] Comment on above: Performed By: #### P T #### [facility] [address] [place] [address] Sodium [Moles/Vol] 138 mmol/L Normal 135-144 [facility] Comment on above: Performed By: #### P T #### [facility] [address] [place] [address] Urea nitrogen [Mass/Vol] 7 mg/dL Low 8-23 [facility] Comment on above: Performed By: #### P T #### [facility] [address] [place] [address] CBC With Platelet No Differe ntialon 11-13-2018 Erythrocyte distribution width (RBC) [Ratio] 14.2 % Normal 11.5-14.5 [facility] Comment on above: Performed By: #### P T #### [facility] [address] [place] [address] Hematocrit (Bld) [Volume fraction] 40.3 % Normal 37.0-47.0 [facility] Comment on above: Performed By: #### P T #### [facility] [address] [place] [address] Hemoglobin (Bld) [Mass/Vol] 13.1 g/dL Normal 12.0-16.0 [facility] Comment on above: Performed By: #### P T #### [facility] [address] [place] [address] MCH (RBC) [Entitic mass] 29.1 pg Normal 27.0-31.3 [facility] Comment on above: Performed By: #### P T #### [facility] [address] [place] [address] MCHC (RBC) [Mass/Vol] 32.4 % Low 33.0-37.0 [facility] Comment on above: Performed By: #### P T #### [facility] [address] [place] [address] MCV (RBC) [Entitic vol] 89.9 fL Normal 82.0-100.0 M [facility] Comment on above: Performed By: #### P T #### [facility] [address] [place] [address] Platelets (Bld) [#/Vol] 394 10*3/uL Normal 130-400 [facility] Comment on above: Performed By: #### P T #### [facility] [address] [place] [address] RBC (Bld) [#/Vol] 4.48 10*6/uL Normal 4.20-5.40 [facility] Comment on above: Performed By: #### P T #### [facility] [address] [place] [address] WBC (Bld) [#/Vol] 11.8 10*3/uL Critically high 4.8-10.8 [facility] Comment on above: Performed By: #### P T #### [facility] [address] [place] [address] Culture, MRSA Screenon 11-13 Culture, MRSA Screen ORDERED BY: BRENNAN HERRON SOURCE: Nares COLLECTED: 11/13/18 09:29 ANTIBIOTICS AT DI.: RECEIVED : 11/13/18 09:29 Culture, MRSA Screen FINAL 11/14/18 08:02 No MRSA isolated Normal [facility] Comment on above: Performed By: #### P T #### [facility] [address] [place] [address] FLUORO FOR SURGICAL PROCEDUR ESon 11-13-2018 FLUORO [...] Mohsen Childers MD 11/13/18 Final result Normal [facility] Surgical Specimenon 11-14-19 Surgical Specimen [facility] [address] [place] [address] FINAL SURGICAL PATHOLOGY REPORT Patient Name: HIRAM MADRID Accession No: [id number] Age Sex: 1935 Location: [facility] [id number] Account No: [id number] Collected: 11/13/2018 Med Rec No: [id number] Received: 11/14/2018 Attend Phys: LENNY CORRAL Completed: 11/15/2018 Perform Phys: LENNY CORRAL 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 ALIFA/UVALDO CLINICAL INFORMATION: Stenosis, radiculopathy, spondylosis, disc. SPECIMEN: Disc GROSS DESCRIPTION: Specimen received in formalin in a container labeled with patient's name and designated as spine . Specimen consists of multiple brownish-marti soft firm tissue fragments measuring in aggregate 3.0 x 2.0 x 0.4 cm. Sections representatives are submitted in two cassettes after brief decalcification. UVALDO/NIKKY CPT: 97207 X1 [id number] X1 STANLEY GRAFF M.D. 11/15/2018 Electronically signed out by Page 1 of 1 [facility] Comment on above: Performed By: #### P TT #### [place] [id number] Type and Screen Capture 3 sc rn cellon 11-13-2018 Type and Screen Capture 3 scrn cell PATIENT: MERCY GANDHI LOC: LCOPS,ORPOOL,NON BILL# : [id number] : 1935 SEX: F ORDERED BY: GOPAL AMIN ORDERED : 11/13/2018 08:10 COLLECTED: 11/13/2018 09:24 ORDER : [id number] RECEIVED : 11/13/2018 09:24 TEST NAME RESULT UNITS RANGES ABN FL ST ABORH Capture A POS F Antibody 3 Cell Scrn Captu NEG F Normal [facility] Comment on above: Performed By: #### T S3C #### [facility] [address] [place] [id number] XR SPINE ENTIRE (2-3 VIEWS)o n 11-13-2018 [...] Mohsen Childers MD 11/13/18 Final result Normal [facility] MRI LUMBAR SPINE W WO CONTRA [...] OF UNDERLYING PATHOLOGY OR RECENT INJURY. [facility] [place], [place] Joseph, Chpo Incoming Radiant Results From [employer] - 11/05/2018 3:07 PM EDT EXAMINATION: MRI [...] SIGNS OF UNDERLYING PATHOLOGY OR RECENT INJURY. [facility], [place] MRI LUMBAR SPINE W WO CONTRAST [...] Pearl Varghese MD 11/05/18 Final result Normal [facility] Otheron 11-05-2018 Joseph, Chpo Incoming Radiant Results From [employer] - 11/05/2018 1:21 PM EDT EXAMINATION: XR [...] AND POSTOPERATIVE FINDINGS, WITHOUT ACUTE SUPERIMPOSED ABNORMALITY. [facility] [place], [place] EXAMINATION: XR LUMB AR [...] AND POSTOPERATIVE FINDINGS, WITHOUT ACUTE SUPERIMPOSED ABNORMALITY. [place] XR CHEST (2 VW)on 11-05-2018 XR [...] Pearl Varghese MD 11/05/18 Final result Normal [facility] XR LUMBAR SPINE (MIN 4 VIEWS [...] Pearl Varghese MD 11/05/18 Final result Normal [facility] APTTon 11-04-2018 aPTT Coag (Bld) [Time] 27.9 s [place] Comment on above: Effective 09/06/2018: Please note methodology and/or reference ranges have changed. aPTT - Heparin Therapeutic Range: 74.0 - 106 seconds C-Reactive Proteinon 019 CRP [Mass/Vol] 1.3 mg/L Normal 0.0-5.0 [facility] Comment on above: Performed By: #### C RP #### [facility] [address] [place] [address] CRP [Mass/Vol] 1.3 mg/L 0 - 5 mg/L [place] CBC Auto Differentialon 10-21 Basophils (Bld) [#/Vol] 0.1 10*3/uL 0 - 0.2 K/uL [place] Basophils/100 WBC (Bld) 1.1 % [place], [place] Eosinophils (Bld) [#/Vol] 0.2 10*3/uL 0 - 0.7 K/uL [place] Eosinophils/100 WBC (Bld) 1.3 % [place] Erythrocyte distribution width (RBC) [Ratio] 13.9 % 11.5 - 14.5 % [place] Hematocrit (Bld) [Volume fraction] 41.3 % 37 - 47 % [place] Hemoglobin (Bld) [Mass/Vol] 14.3 g/dL 12 - 16 g/dL [place] Interpretation and review of laboratory results Abnormal [place] Lymphocytes (Bld) [#/Vol] 3.5 10*3/uL 1 - 4.8 K/uL [place] Lymphocytes/100 WBC (Bld) 28.2 % [place] MCH (RBC) [Entitic mass] 30.5 pg 27 - 31.3 pg [place] MCHC (RBC) [Mass/Vol] 34.6 % 33 - 37 % [place] MCV (RBC) [Entitic vol] 88.0 fL 82 - 100 fL [place] Monocytes (Bld) [#/Vol] 0.8 10*3/uL 0.2 - 0.8 K/uL [place] Monocytes/100 WBC (Bld) 6.8 % [place], [place] Neutrophils Absolute 7.7 K/uL High 1.4 - 6 .5 K/uL [place] Neutrophils/100 WBC (Bld) 62.6 % [place] Platelets (Bld) [#/Vol] 435 10*3/uL High 130 - 400 K/uL [place] RBC (Bld) [#/Vol] 4.69 10*6/uL [place] WBC (Bld) [#/Vol] 12.4 10*3/uL High 4.8 - 10.8 K/uL [place] CBC With Platelet and Differ entialon 11-04-2018 Basophils (Bld) [#/Vol] 0.1 10*3/uL Normal 0.0-0.2 [facility] Comment on above: Performed By: #### C BCWD #### [facility] [address] [place] [address] Basophils/100 WBC (Bld) 1.1 % Normal [facility] Comment on above: Performed By: #### C BCWD #### [facility] [address] [place] [address] Eosinophils (Bld) [#/Vol] 0.2 10*3/uL Normal 0.0-0.7 [facility] Comment on above: Performed By: #### C BCWD #### [facility] [address] [place] [address] Eosinophils/100 WBC (Bld) 1.3 % Normal [facility] Comment on above: Performed By: #### C BCWD #### [facility] [address] [place] [address] Erythrocyte distribution width (RBC) [Ratio] 13.9 % Normal 11.5-14.5 [facility] Comment on above: Performed By: #### C BCWD #### [facility] [address] [place] [address] Hematocrit (Bld) [Volume fraction] 41.3 % Normal 37.0-47.0 [facility] Comment on above: Performed By: #### C BCWD #### [facility] [address] [place] [address] Hemoglobin (Bld) [Mass/Vol] 14.3 g/dL Normal 12.0-16.0 [facility] Comment on above: Performed By: #### C BCWD #### [facility] [address] [place] [address] Lymphocytes (Bld) [#/Vol] 3.5 10*3/uL Normal 1.0-4.8 [facility] Comment on above: Performed By: #### C BCWD #### [facility] [address] [place] [address] Lymphocytes/100 WBC (Bld) 28.2 % Normal [facility] Comment on above: Performed By: #### C BCWD #### [facility] [address] [place] [address] MCH (RBC) [Entitic mass] 30.5 pg Normal 27.0-31.3 [facility] Comment on above: Performed By: #### C BCWD #### [facility] [address] [place] [address] MCHC (RBC) [Mass/Vol] 34.6 % Normal 33.0-37.0 [facility] Comment on above: Performed By: #### C BCWD #### [facility] [address] [place] [address] MCV (RBC) [Entitic vol] 88.0 fL Normal 82.0-100.0 [facility] Comment on above: Performed By: #### C BCWD #### [facility] [address] [place] [address] Monocytes (Bld) [#/Vol] 0.8 10*3/uL Normal 0.2-0.8 [facility] Comment on above: Performed By: #### C BCWD #### [facility] [address] [place] [address] Monocytes/100 WBC (Bld) 6.8 % Normal [facility] Comment on above: Performed By: #### C BCWD #### [facility] [address] [place] [address] Neutrophils (Bld) [#/Vol] 7.7 10*3/uL Critically high 1.4-6.5 [facility] Comment on above: Performed By: #### C BCWD #### [facility] [address] [place] [address] Neutrophils/100 WBC (Bld) 62.6 % Normal [facility] Comment on above: Performed By: #### C BCWD #### [facility] [address] [place] [address] Platelets (Bld) [#/Vol] 435 10*3/uL Critically high 130-40 0 [facility] Comment on above: Performed By: #### C BCWD #### [facility] [address] [place] [address] RBC (Bld) [#/Vol] 4.69 10*6/uL Normal 4.20-5.40 [facility] Comment on above: Performed By: #### C BCWD #### [facility] [address] [place] [address] WBC (Bld) [#/Vol] 12.4 10*3/uL Critically high 4.8-10.8 [facility] Comment on above: Performed By: #### C BCWD #### [facility] [address] [place] [address] Comprehensive Metabolic Pane bebeto 11-04-2018 Anion gap [Moles/Vol] 14 mmol/L Normal 9-15 [facility] Comment on above: Order Comment: CALL [facility] LCED tel. [phone], Potassium results called to and read back by onofre Millan RN, 11/04/2018 16:24, by WEBAM Performed By: #### C MP #### [facility] [address] [place] [address] Bilirubin [Mass/Vol] 0.4 mg/dL Normal 0.2-0.7 [facility] Comment on above: Order Comment: CALL [facility] LCED tel. [phone], Potassium results called to and read back by onofre Millan RN, 11/04/2018 16:24, by WEBAM Performed By: #### C MP #### [facility] [address] [place] [address] GFR/1.73 sq M predicted among blacks MDRD (S/P/Bld) [Vol rate/Area] mL/min/{1.73_m2} Normal >60 [facility] Comment on above: Order Comment: CALL [facility] LCED tel. [phone], Potassium results called to and read back by onofre Millan RN, 11/04/2018 16:24, by WEBAM Result Comment: >60 mL/min/1.73m2 EGFR, calc. for ages 18 and older using the MDRD formula (not corrected for weight), is valid for stable renal function. Performed By: #### C MP #### [facility] [address] [place] [address] GFR/1.73 sq M.predicted MDRD (S/P/Bld) [Vol rate/Area] mL/min/{1.73_m2} Normal >60 [facility] Comment on above: Order Comment: CALL [facility] tel. [phone], Potassium results called to and read back by onofre Millan RN, 11/04/2018 16:24, by WEBAM Result Comment: >60 mL/min/1.73m2 EGFR, calc. for ages 18 and older using the MDRD formula (not corrected for weight), is valid for stable renal function. Performed By: #### C MP #### [facility] [address] [place] [address] Albumin [Mass/Vol] 4.5 g/dL Normal 3.5-4.6 [facility], [place] Comment on above: Order Comment: [phone], Potassium results called to and read back by onofre Millan RN, 11/04/2018 16:24, by WEBAM Performed By: #### C MP #### [facility] [address] [place] [address] ALP [Catalytic activity/Vol] 76 U/L Normal 40-130 [facility], [place] Comment on above: Order Comment: [facility] [phone], Potassium results called to and read back by onofre Millan RN, 11/04/2018 16:24, by WEBAM Performed By: #### C MP #### [facility] [address] [place] [address] ALT [Catalytic activity/Vol] 15 U/L Normal 0-33 [facility] Comment on above: Order Comment: CALL [facility] tel. [phone], Potassium results called to and read back by onofre Millan RN, 11/04/2018 16:24, by WEBAM Performed By: #### C MP #### [facility] [address] [place] [address] AST [Catalytic activity/Vol] 20 U/L Normal 0-35 [facility] Comment on above: Order Comment: CALL [facility] tel. [phone], Potassium results called to and read back by onofre Millan RN, 11/04/2018 16:24, by WEBAM Performed By: #### C MP #### [facility] [address] [place] [address] Calcium [Mass/Vol] 9.9 mg/dL Normal 8.5-9.9 [place], [place] Comment on above: Order Comment: CALL [facility] tel. [phone], Potassium results called to and read back by onofre Millan RN, 11/04/2018 16:24, by WEBAM Performed By: #### C MP #### [facility] [address] [facility] [address] Chloride [Moles/Vol] 96 mmol/L Normal 95-107 [place], [place] Comment on above: Order Comment: CALL [facility] tel. [phone], Potassium results called to and read back by onofre Millan RN, 11/04/2018 16:24, by WEBAM Performed By: #### C MP #### [facility] [address] [facility] [address] CO2 [Moles/Vol] 24 mmol/L Normal 20-31 [place] Comment on above: Order Comment: CALL [facility] tel. [phone], Potassium results called to and read back by onofre Millan RN, 11/04/2018 16:24, by WEBAM Performed By: #### C MP #### [facility] [address] [facility] [address] Creatinine [Mass/Vol] 0.67 mg/dL Normal 0.50-0.90 [place] Comment on above: Order Comment: CALL [facility] tel. [phone], Potassium results called to and read back by onofre Millan RN, 11/04/2018 16:24, by WEBAM Performed By: #### C MP #### [facility] [address] [facility] [place] [address] Globulin (S) [Mass/Vol] 2.8 g/dL Normal 2.3-3.5 M [place], [place] Comment on above: Order Comment: CALL [facility] tel. [phone], Potassium results called to and read back by onofre Millan RN, 11/04/2018 16:24, by WEBAM Performed By: #### C MP #### [facility] [address] [place] [address] Glucose [Mass/Vol] 109 mg/dL Critically high 70-99 M [place], [place] Comment on above: Order Comment: CALL [facility] tel. [phone], Potassium results called to and read back by onofre Millan RN, 11/04/2018 16:24, by WEBAM Performed By: #### C MP #### [facility] [address] [place] [address] Potassium [Moles/Vol] 3.0 mmol/L Critically low 3.4-4.9 [place] Comment on above: Order Comment: CALL [facility] tel. [phone], Potassium results called to and read back by onofre Millan RN, 11/04/2018 16:24, by WEBAM Performed By: #### C MP #### [facility] [address] [facility] [place] [address] Protein [Mass/Vol] 7.3 g/dL Normal 6.3-8.0 [place] Comment on above: Order Comment: CALL [facility] tel. [phone], Potassium results called to and read back by onofre Millan RN, 11/04/2018 16:24, by WEBAM Performed By: #### C MP #### [facility] [address] [place] [address] Sodium [Moles/Vol] 134 mmol/L Low 135-144 [place] Comment on above: Order Comment: CALL [facility] tel. [phone], Potassium results called to and read back by onofre Millan RN, 11/04/2018 16:24, by WEBAM Performed By: #### C MP #### [facility] [address] [place] [address] Urea nitrogen [Mass/Vol] 8 mg/dL Normal 8-23 [place] Comment on above: Order Comment: CALL [facility] tel. [phone], Potassium results called to and read back by onofre Millan RN, 11/04/2018 16:24, by TAMMY Performed By: #### C MP #### [facility] [address] [facility] [address] Anion gap [Moles/Vol] 14 mmol/L [place] Bilirubin Ql (U) 0.4 mg/dL 0.2 - 0.7 mg/dL [place] GFR >60.0 >60 [place] Comment on above: >60 mL/min/1.73m2 EG FR, calc. for ages 18 and older using the MDRD formula (not corrected for weight), is valid for stable renal function. GFR Non- >60.0 >60 [place] Comment on above: >60 mL/min/1.73m2 EG FR, calc. for ages 18 and older using the MDRD formula (not corrected for weight), is valid for stable renal function. Interpretation and review of laboratory results Abnormal [place] Potassium [Moles/Vol] CALL [facility] DARLINE tel . [phone], Potassium results called to and read back by onofre Millan RN, 11/04/2018 16:24, by TAMMY [place] Partial Thromboplastin Timeo n 11-04-2018 aPTT Coag (Bld) [Time] 27.9 s Normal 24.4-36.8 [facility] Comment on above: Result Comment: Effe ctive 09/06/2018: Please note methodology and/or reference ranges have changed. aPTT - Heparin Therapeutic Range: 74.0 - 106 seconds Performed By: #### P TT #### [facility] [address] [facility] [address] Prothrombin Timeon 9 INR Coag (PPP) [Relative time] 0.9 {INR} Normal [facility] Comment on above: Result Comment: Warf camden Therapy INR Therapeutic: 2.0-3.0 With Mechanical Valve: >2.5 Low-intensity Therapeutic Range: 1.5-2.0 Mod-intensity Therapeutic Range: 2.0-3.0 High-intensity Therapeutic Range: 2.5-3.5 HIgh-intensity Therapeutic Range: 3.0-4.0 Common Critical/Alarm Value: 5.0 Common Upper Limit Reported: 10.0 Effective 08/30/2018: Please note methodology and/or reference ranges have changed. Performed By: #### P T #### [facility] [address] [place] [id number] PT Coag (PPP) [Time] 12.1 s Low 12.3-14.9 [facility] Comment on above: Result Comment: Effe ctive 08/30/18 Please note methodology and/or reference ranges have changed. Performed By: #### P T #### [facility] [address] [facility] [address] Protime-INRon 11-04-2018 INR Coag (PPP) [Relative time] 0.9 {INR} [place] Comment on above: Warfarin Therapy INR Therapeutic: 2.0-3.0 With Mechanical Valve: >2.5 Low-intensity Therapeutic Range: 1.5-2.0 Mod-intensity Therapeutic Range: 2.0-3.0 High-intensity Therapeutic Range: 2.5-3.5 HIgh-intensity Therapeutic Range: 3.0-4.0 Common Critical/Alarm Value: 5.0 Common Upper Limit Reported: 10.0 Effective 08/30/2018: Please note methodology and/or reference ranges have changed. Interpretation and review of laboratory results Abnormal [place] PT Coag (PPP) [Time] 12.1 s Low [place], [place] Comment on above: Effective 08/30/18 Please note methodology and/or reference ranges have changed. Sedimentation Rateon 019 Sedimentation Rate 12 mm Normal 0-30 [facility] Comment on above: Performed By: #### E SR #### [facility] [address] [facility] [address] Sed Rate 12 mm 0 - 30 mm [place], [place] Vital Signs Date Time Vital Sign Value Performing Clinician Ivonne ledesma 05-03-2023 14:21-0400 Blood Pressure Location Turner MONTIELL [facility] 05-03-2023 14:21-0400 Diastolic blood pressure 82 mm[Hg] Turner MONTIELL [facility] [place] 05-03-2023 14:21-0400 Heart rate 76 /min Turner MONTIELL [facility] [place] 05-03-2023 14:21-0400 Respiratory rate 16 /min Turner MONTIELL [facility] [place] 05-03-2023 14:21-0400 Systolic blood pressure 156 mm[Hg] Turner MONTIELL [facility] [place] 04-15-2023 13:38-0500 Diastolic blood pressure 70 mm[Hg] MD Mami Daniels Work Phone: [facility] 04-15-2023 13:38-0500 Heart rate 76 /min MD Mami aDniels Work Phone: [facility] 04-15-2023 13:38-0500 Respiratory rate 18 /min MD Mami Daniels Work Phone: [facility] 04-15-2023 13:38-0500 SaO2% (BldA) [Mass fraction] 97 % MD Mami Daniels Work Phone: [facility] 04-15-2023 13:38-0500 Systolic blood pressure 160 mm[Hg] MD Mami Daniels Work Phone: [facility] 04-15-2023 12:07-0500 Body height 154.94 cm MD Mami Daniels Work Phone: [facility] 04-15-2023 12:07-0500 Body temperature 97.8 [degF] MD Mami Daniels Work Phone: [facility] 04-15-2023 12:07-0500 Body weight 60.5 kg MD Mami Daniels Work Phone: [facility] 04-06-2023 11:51-0500 Body temperature 97.9 [degF] MD Mami Daniels Work Phone: [facility] 04-06-2023 11:51-0500 Diastolic blood pressure 76 mm[Hg] MD Mami Daniels Work Phone: [facility] 04-06-2023 11:51-0500 Heart rate 84 /min MD Mami Daniels Work Phone: [facility] 04-06-2023 11:51-0500 Respiratory rate 18 /min MD Mami Daniels Work Phone: [facility] 04-06-2023 11:51-0500 SaO2% (BldA) [Mass fraction] 97 % MD Mami Daniels Work Phone: [facility] 04-06-2023 11:51-0500 Systolic blood pressure 146 mm[Hg] MD Mami Daniels Work Phone: [facility] 04-06-2023 06:00-0500 Body weight 58.6 kg MD Mami Daniels Work Phone: [facility] 04-04-2023 13:15-0500 Body height 154.94 cm MD Mami Daniels Work Phone: [facility] 12-22-2022 11:40-0400 Blood Pressure Location MIKAYLA WEISS [facility] 12-22-2022 11:40-0400 Diastolic blood pressure 84 mm[Hg] MIKAYLA ABHISHEK [facility] 12-22-2022 11:40-0400 Systolic blood pressure 124 mm[Hg] MIKAYLA ABHISHEK [facility] 08-06-2022 00:10-0400 Body temperature 97.3 [degF] MD Mami Daniels Work Phone: [facility] 08-06-2022 00:10-0400 Diastolic blood pressure 74 mm[Hg] MD Mami Daniels Work Phone: [facility] 08-06-2022 00:10-0400 Heart rate 80 /min MD Mami Daniels Work Phone: [facility] 08-06-2022 00:10-0400 Respiratory rate 18 /min MD Mami Daniels Work Phone: [facility] 08-06-2022 00:10-0400 SaO2% (BldA) [Mass fraction] 96 % MD Mami Daniels Work Phone: [facility] 08-06-2022 00:10-0400 Systolic blood pressure 177 mm[Hg] MD Mami Daniels Work Phone: [facility] 08-05-2022 19:51-0400 Body height 154.94 cm MD Mami Daniels Work Phone: [facility] 08-05-2022 19:51-0400 Body weight 67.6 kg MD Mami Daniels Work Phone: [facility] 11-20-2018 07:02-0400 Body Temperature 97 [degF] [facility] [place] 11-[facility]-2018 07:02-0400 BP Diastolic 61 mm[Hg] [facility] 11-20-2018 07:02-0400 BP Systolic 153 mm[Hg] [facility] 11-20-2018 07:02-0400 Pulse (Heart Rate) 75 /min Mary [employer] [facility] 11-20-2018 07:02-0400 Pulse Oximetry 97 % [facility] [place] 11-20-2018 07:02-0400 Respiratory Rate 17 /min Mary StevieSantana [facility] 11-17-2018 05:54-0400 BMI (Body Mass Index) 27.62 kg/m2 [facility] [place] 11-17-2018 05:54-0400 Body weight 66.3 kg Mayr Vega [facility], [place] 11-15-2018 15:58-0400 Height 154.9 cm Mary Vega [facility] 11-05-2018 07:30-0400 BP Diastolic 57 mm[Hg] [facility] , [place] 11-05-2018 07:30-0400 BP Systolic 135 mm[Hg] [facility] , [place] 11-05-2018 07:30-0400 Pulse (Heart Rate) 70 /min [facility] 11-05-2018 07:30-0400 Pulse Oximetry 97 % [facility] , [place] 11-04-2018 20:06-0400 Body Temperature 98.4 [degF] [facility], [place] 11-04-2018 20:06-0400 Respiratory Rate 16 /min [facility] 11-04-2018 14:56-0400 BMI (Body Mass Index) 27.4 kg/m2 [facility] 11-04-2018 14:56-0400 Body weight 65.77 kg [facility] , [place] 11-04-2018 14:56-0400 Height 154.9 cm [place], [place] Encounters Encounter Date Encounter Type Care Provider Facility Start: 05-03-2023 End: 05-04-2023 ambulatory Mami Daniels Facility: [facility] Start: 05-03-2023 End: 05-03-2023 Patient encounter procedure Turner DSOS [facility]/Taryn Avilez Start: 04-15-2023 End: 04-15-2023 Emergency department patient visit Turner Nielsen Facility:[facility] Start: 04-15-2023 End: 04-15-2023 Emergency department patient visit MD Mami Daniels Work Phone: [facility]-Emergency Room Work Phone: Start: 04-13-2023 ambulatory Raymond HARRISON Facility :[facility] Start: 04-03-2023 Non-patient / Non-visit MD Aime Daniels Work Phone: [facility] Ne[facility] Work Phone: Start: 04-02-2023 End: 04-06-2023 Evaluation and management of inpatient Mamikaylynn Daniels Facility:[facility] Start: 04-02-2023 Non-patient / Non-visit MD Aime Daniels Work Phone: [facility] Phys[facility] Work Phone: Start: 04-02-2023 End: 04-06-2023 Evaluation and management of inpatient MD Mami Daniels Work Phone: [facility] Work Phone: Start: 01-11-2023 End: 01-11-2023 ambulatory [facility] Start: 12-22-2022 End: 12-23-2022 ambulatory MIKAYLA WEISS Facility:[facility] Start: 12-22-2022 End: 12-22-2022 Patient encounter procedure MIKAYLA WEISS [facility] Start: 10-14-2022 End: 10-14-2022 ambulatory [facility] Start: 09-06-2022 End: 09-07-2022 ambulatory Raymond HARRISON Facility:[facility] Start: 08-11-2022 End: 08-12-2022 ambulatory Raymond HARRISON Facility:CD:[id number] Start: 08-10-2022 End: 08-11-2022 ambulatory Raymond R CHRISTY Facility:[facility] Start: 08-09-2022 End: 08-09-2022 ambulatory Raymond Harrison Facility:[facility] Start: 08-09-2022 ambulatory Raymond HARRISON Facility :[facility] Start: 08-05-2022 End: 08-06-2022 Emergency department patient visit Mamikaylynn Daniels Facility:[facility] Start: 08-05-2022 End: 08-06-2022 Emergency department patient visit MD Mami Daniels Work Phone: [facility]-Emergency Room Work Phone: Start: 06-13-2022 End: 06-14-[address] MAMI DANIELS . Facility:[facility] Start: 05-19-[address] MAMI DANIELS . Facili ty:[facility] Start: 04-18-2022 End: 04-19-[address] VALERIE DARDEN Facility:[facility] Start: 04-04-2022 End: 04-04-2022 [facility] Start: 01-30-[address] MAMI DANIELS . Facili ty:[facility] Start: 01-04-2022 End: 01-05-[address] MAMI DANIELS . Facility:[facility] Start: 12-26-2021 End: 12-29-2021 Evaluation and management of inpatient DR MAMI DANIELS . Facility:[facility] Start: 12-02-2021 End: 01-04-2022 Pre-admission assessment Alie Santos [facility] Start: 11-30-2021 End: 12-01-[address] JESUS BRUNO Facility:[facility] Start: 11-09-2021 End: 11-10-[address] CALISTA ACEVES Facility:[facility] Start: 08-06-2021 End: 08-07-[address] VALERIE DARDEN Facility:[facility] Start: 07-28-2021 End: 07-29-[address] CALISTA ACEVES Facility:[facility] Start: 06-22-2021 End: 06-22-2021 Patient encounter procedure VALERIE DARDEN [facility] Start: 11-15-2018 End: 11-20-2018 Evaluation and management of inpatient MARY VEGA [facility] Start: 11-15-2018 End: 11-20-2018 Evaluation and management of inpatient Mary Vega Work Phone: [facility] Comment on above: Spinal stenosis of l umbosacral region (Primary Dx); Impaired mobility; Vasovagal syncope Start: 11-13-2018 End: 11-15-2018 Evaluation and management of inpatient LENNY CORRAL [facility] Start: 11-13-2018 End: 11-15-2018 Patient encounter procedure LENNY CORRAL [facility] Start: 11-04-2018 End: 11-05-2018 Patient encounter procedure CALISTA ACEVES [facility] Start: 11-04-2018 End: 11-05-2018 Emergency department patient visit Lenny Corral Work Phone: [facility] Comment on above: Lumbar radiculopathy (Primary Dx); Intractable low back pain Start: 04-19-2018 End: 04-20-2018 Patient encounter procedure DEFAULT PHYSICIAN Facility:[facility] Procedures Date Procedure Procedure [...] CALISTA ACEVES Start: 11-17-2018 INCENTIVE SPIROMETRY RT ACLISTA ACEVES Start: 11-17-2018 Blood count complete auto&auto [...] xtr veins c omplete bilateral study Mary Gary Work Phone: Start: 11-16-2018 INCENTIVE SPIROMETRY RT CALISTA KETAN Start: 11-16-2018 INCENTIVE SPIROMETRY RT [...] ACEVES Start: 11-16-2018 NURSING COMMUNICATION M DORA KETAN Start: 11-16-2018 INCENTIVE SPIROMETRY RT CALISTA [...] ICAL VTE PROPHYLAXIS CALISTA ACEVES Start: 11-15-2018 MICROGRAPHICS SERVICES SUPERVISOR EVAL AND TREAT CHRIS ACEVES Start: 11-15-2018 TOBACCO CESSATION EDUCATION CALISTA ACEVES Start: 11-15-2018 VITAL SIGNS CALISTA BRA UN Start: 11-15-2018 Radiologic exam ches t single view CALISTA ACEVES Start: 11-15-2018 INCENTIVE SPIROMETRY RT CALISTA ACEVES Start: 11-15-2018 Radiologic exam ches t single view Mary Vega Work Phone: Start: 11-15-2018 Duplex scan extracra nial art compl bi study CALISTA KETAN Start: 11-15-2018 Culture bacterial quanttative colony count urine CALISTA KETAN Start: 11-15-2018 Urinalysis microscopic only CALISTA KETAN Start: 11-15-2018 Urnls dip stick/tabl et rgnt auto w/o microscopy CALISTA KETAN Start: 11-15-2018 INCENTIVE SPIROMETRY RT CALISTA KETAN Start: 11-15-2018 Duplex scan extracra nial art compl bi study Dulce Stevens Work Phone: Start: 11-15-2018 Culture bacterial quanttative colony count urine Mary Vega Work Phone: Start: 11-15-2018 Urinalysis microscopic only Mary Vega Work Phone: Start: 11-15-2018 Blood count complete auto&auto difrntl wbc CALISTA KETAN Start: 11-15-2018 Culture bacterial bl ood aerobic w/id isolates CALISTA KETAN Start: 11-15-2018 Microscopic examinat ion of blood, culture CALISTA CAEVES Comment on above: Performed By: #### P TT #### [facility] [address] [facility] [address] Start: 11-15-2018 Urnls dip stick/tabl et rgnt auto w/o microscopy Mary Vega Work Phone: Start: 11-15-2018 IP CONSULT TO HOSPITALIST CALISTA ACEVES Start: 11-15-2018 PATIENT STATUS (DIRECT) CALISTA ACEVES Start: 11-15-2018 AMBULATE PATIENT CALISTA KETAN Start: 11-15-2018 DIET GENERAL CALISTA BRA UN Start: 11-15-2018 PLACE INTERMITTENT P NEUMATIC COMPRESSION DEVICE CALISTA ACEVES Start: 11-15-2018 WOUND CARE CALISTA BRA UN Start: 11-15-2018 ACTIVITY TOLERATED M DORA [...] (SPECIFY) CALISTA ACEVES Start: 11-13-2018 TELEMETRY MONITORING AGUSTIN ACEVES Start: 11-13-2018 TOBACCO CESSATION EDUCATION CALISTA ACEVES Start: 11-13-2018 VITAL SIGNS CALISTA RIVERA UN Start: 11-13-2018 WOUND CARE CALISTA RIVERA UN Start: 11-13-2018 FULL CODE CALISTA RIVERA [...] CALISTA ACEVES Start: 11-05-2018 DISCHARGE PATIENT MARQUEZ Borrero KETAN Start: 11-05-2018 ASSESS HEART TONES CALISTA ACEVES Start: 11-05-2018 DIET FULL LIQUID CALISTA ACEVES Start: 11-05-2018 FULL CODE CALISTA BRA UN Start: 11-05-2018 INTAKE AND OUTPUT MARQUEZ Borrero KETAN Start: 11-05-2018 NOTIFY PHYSICIAN (SPECIFY) CALISTA [...] stick/tabl et rgnt auto w/o microscopy CALISTA KETAN Start: 11-04-2018 Sedimentation rate r bc automated Ab [place] Work Phone: Start: 11-04-2018 Blood count complete auto&auto difrntl wbc Ab [place] Work Phone: Start: 11-04-2018 C-reactive protein Steven [place] Work Phone: Start: 11-04-2018 Comprehensive metabo lic panel Ab [place] Work Phone: Start: 11-04-2018 Prothrombin time Ab [place] Work Phone: Start: 11-04-2018 Thromboplastin time partial plasma/whole blood Ab [place] Work Phone: Accessory mobilizati on of the lumbar spine Turner DOSS Appendectomy MIKAYLA WEISS Bilateral salpingect mackenzie with oophorectomy MIKAYLA WEISS Cataract extraction and insertion of intraocular lens MIKAYLA WEISS Cholecystectomy MIKAYLA RAMON JUAN Colonoscopy MIKAYLA WEISS Lumbar spinal fusion Turner DOSS Procedure on back MIKAYLA Ammon DUMAS Tonsillectomy MIKAYLA WEISS Plan of Treatment Date Care Activity Detail Author Start: 06-29-2023 ambulatory Ambulatory Facility:[facility] Start: 04-06-2023 [facility] Start: 04-04-2023 Administration of prophylactic treatment [facility] Start: 04-02-2023 Referral to binder cutter [facility] Start: 04-02-2023 Hospital admission [facility] Start: 08-05-2022 CT Abdomen and Pelvi s WO contrast [facility] Start: 08-05-2022 CT of abdomen and pe lvis without contrast CT abdomen pelvis wo con [facility] Start: 11-19-2019 Creatinine monitoring Creatinine mon [place], [place] Start: 11-19-2019 Potassium monitoring Potassium monit [place], [place] Start: 11-05-2019 Creatinine monitoring Creatinine mon [place] Start: 11-05-2019 Potassium monitoring Potassium monit [place] Start: 12-04-2018 End: 12-04-2018 Office Visit 12/04/2018 Office Visit Neurosurgery Lenny Corral MD [address] [facility], [address] [address] [employer] Start: 11-30-2018 End: 11-30-2018 Office Visit 11/30/2018 Office Visit Neurosurgery Lenny Corral MD [address] [facility], [address] [address] [employer] Start: 11-23-2018 End: 11-23-2018 Office Visit 11/23/2018 Office Visit Neurosurgery Lenny Corral MD [address] [facility], [address] [address] [employer] Start: 11-13-2018 Annual Wellness Visi t (AWV) Annual Wellness Visit (AWV) [place] Start: 10-21-2018 Influenza vaccination Flu vaccine (# 1) [place], [place] Start: 2001 DEXA (modify frequen cy per FRAX score) DEXA (modify frequency per FRAX score) [place] Start: 2001 Pneumococcal 65+ yea rs Vaccine (1 of 2 - PCV13) Pneumococcal 65+ years Vaccine (1 of 2 - PCV13) [place] Start: 1986 Shingles Vaccine (1 of 2) Steward gles Vaccine (1 of 2) [place] Start: 11-13-1955 DTaP/Tdap/Td vaccine (1 - Tdap) DTaP/Tdap/Td vaccine (1 - Tdap) [place], [place] Start: 1946 Lipid screen Lipid screen [place], [place] Culture Blood #1 Culture Blood # 1 Microbiology STAT 11/15/2018 4:37 PM EDT [place] Culture Blood #2 Culture Blood # 2 Microbiology STAT 11/15/2018 4:37 PM EDT [place] End: 11-05-2018 EKG 12 Lead EKG 12 Lead ECG Routine One Time for 1 Occurrences starting 11/05/2018 until 11/05/2018 [place] Comment on above: One Time for 1 Occur rences starting 11/05/2018 until 11/05/2018 Incentive spirometry Incentive s pirometry Respiratory Care Routine Every 2hr while awake until discontinued starting 11/15/2018 [place] Comment on above: Every 2hr while awak e until discontinued starting 11/15/2018 Initiate Oxygen Ther apy Protocol Initiate Oxygen Therapy Protocol Respiratory Care Routine Daily until discontinued starting 11/15/2018 [place] Comment on above: Daily until disconti nued starting 11/15/2018 Nonrebreather mask oxygen Nonreb reather mask oxygen Respiratory Care Routine As directed - RT (PRN) until discontinued starting 11/05/2018 [place] Comment on above: As directed - RT (MN N) until discontinued starting 11/05/2018 Patient Education [facility] Work Phone: Patient referral [facility] Work Phone: End: 11-15-2018 Speech and language therapy regime Speech language pathology evaluation [employer]PER[employer] Routine One Time for 1 Occurrences starting 11/15/2018 until 11/15/2018 [place] Comment on above: One Time for 1 Occur rences starting 11/15/2018 until 11/15/2018 End: 11-04-2018 Urine Reflex to Culture Urine Reflex to Culture Lab STAT One Time for 1 Occurrences starting 11/04/2018 until 11/04/2018 [place] Comment on above: One Time for 1 Occur rences starting 11/04/2018 until 11/04/2018 Immunizations Immunization Date Immunization Notes Care Provider Laxmi hallmata 12-20-2021 influenza virus vaccine, unspecified formulation MIKAYLA WEISS [facility] 11-30-2021 influenza virus vaccine, unspecified formulation MD Mami Daniels Work Phone: [facility] 12-21-2020 influenza virus vaccine, unspecified formulation MIKAYLA ABHISHEK [facility] 01-09-2019 influenza virus vaccine, unspecified formulation MIKAYLA ABHISHEK [facility] 11-29-2017 influenza virus vaccine, unspecified formulation MIKAYLA ABHISHEK [facility] 01-02-2017 influenza virus vaccine, unspecified formulation MIKAYLA ABHISHEK [facility] 12-06-2016 influenza virus vaccine, unspecified formulation MIKAYLA ABHISHEK [facility] 12-11-2014 influenza virus vaccine, unspecified formulation MIKAYLA ABHISHEK [facility] NEGATED: Highlighted row has not occurred!05-03-2023 influenza virus vaccine, unspecified formulation Turner DOSS [facility] Payers Date Payer Category Payer Self-pay [id number] 2021 Unknown [id number] 2018 Medicare MEDICARE MEDICAR E PART A AND B xxxxxxxxxxx 2018-Present [phone] [address] [address] [place] [address] xxxxxxxxxxx [id number] 2014 Medicare [id number] 2014 Medicare MEDICARE MEDICAR E PART A AND B xxxxxxxxxx 2014-Present [phone] [address] [address] [place] [address] xxxxxxxxxx [id number] 2014 Unknown [id number] 2014 Unknown 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 [address] xxxxxxxxxxxx 2014-Present [phone] [address] [place] [address] xxxxxxxxxxxx [id number] .[id number] 1959 Medicare [id number] 1959 Self-pay [id number] 1959 Unknown [id number] 1936 Unknown [id number] 2.16.840.1.390030.3.579.2.647 1936 Unknown [id number] 2.16.840.1.277485.3.579.2.182 1936 Unknown [id number] 2.16.840.1.059858.3.579.2.182 1936 Unknown [id number] 2.16.840.1.835357.3.579.2.182 1936 Unknown [id number] 2.16.840.1.049060.3.579.2.182 1936 Unknown [id number] 2.16.840.1.238459.3.579.2.593 1936 Unknown [id number] 2.16.840.1.900925.3.579.2.593 1936 Unknown [id number] 2.16.840.1.850065.3.579.2.593 1936 Unknown [id number] 2.16.840.1.232204.3.579.2.593 1936 Unknown [id number] 2.16.840.1.669056.3.579.2.593 1936 Unknown [id number] 2.16.840.1.176172.3.579.2.593 1936 Unknown [id number] 2.16.840.1.691900.3.579.2.593 1936 Unknown [id number] 2.16.840.1.820162.3.579.2.593 1936 Unknown [id number] 2.16.840.1.986433.3.579.2.593 1936 Unknown [id number] 2.840.1.753692.3.579.2.593 1936 Unknown [id number] 2.840.1.495529.3.579.2.727 1936 Unknown [id number] 2.16840.1.050443.3.579.2.727 1936 Unknown [id number] 2.840.1.131813.3.579.2.727 1936 Unknown [id number] 2.840.1.015293.3.579.2.727 1936 Unknown [id number] 2.840.1.416867.3.579.2.727 1936 Unknown [id number] 2.16.840.1.569698.3.579.2.727 1936 Unknown [id number] 2.16840.1.748736.3.579.2.727 Unknown Unknown [id number] 2.16.840.1.209333.3.579.2.531 Unknown [id number] 2.16.840.1.312086.3.579.2.531 Unknown [id number] 2.16.840.1.335017.3.579.2.531 Unknown [id number] 2.16.840.1.218590.3.579.2.531 Social History Date Type Detail Facility Start: 11-04-2018 End: 05-03-2023 Tobacco smoking status NHIS Never smoker [facility] Start: 11-04-2018 End: 11-19-2018 Alcohol intake Not Currently [facility] Sex Assigned At Not on file [facility] Tobacco smoking status No Smokin g Status Entered [facility] Start: 1935 Sex Assigned At Female F [facility] Tobacco smoking status Never [facility] Medical Equipment Procedure Code Equipment Code Equipment Origin al Text Equipment Identifier Dates Graft Canc Chip 30cc 1.2sk18aj - [id number] Start: 11-13-2018 Graft Canc Chip 1.0cp87kg 15cc - [id number] Start: 11-13-2018 Sys Fix Reline 0 x Conn 40 50mm 5.5lp Adj [id number] Start: 11-13-2018 Jose Armando-Graft Infuse Kt Med [id number] Start: 11-13-2018 Impl Spine Cage Kamila Crv [id number] 8deg [id number] Start: 11-13-2018 Impl Spine Cage Kamila Crv [id number] 8deg [id number] Start: 11-13-2018 Screw Polyaxial Reline [...] Avilez 04-06-2023 Functional status Patient at Baseline [facility] Work Phone: 12-22-2022 Functional Status N/A [facility] Natalya Mental Status Date Assessment Result Facility 04-06-2023 Cognitive function Cognitive Sta tus Patient at Baseline [facility] Work Phone: Clinical Notes 04-04-2022 to [...] plan excisional biopsy under local anesthesia at [facility], for definitive diagnosis and treatment, informed [...] mg= 1 tab(s), Oral, Daily Potassium Chloride (Ggg-Ccrm-Bhb 10), 20 mEq, Oral, TID pravastatin 80 [...] Recorded influenza virus vaccine, inactivated 12/11/2014 Recorded [facility] Comment on above: Result Comment: Elec tronically Signed By: ROMARIO DUMONT, Turner Connor\Date and Time Signed: 05/03/23 20:14 EDT 04-06-2023 Discharge summary Note Date/Time April 06, 2023 12:22pm [facility] [address] [place] [address] Discharge Summary Signed Patient: Hiram Madrid MR#: [id number] : 1935 Acct:[id number] Age/Sex: 87 / F Adm Date: 4 Loc: Room: [address] [place] [address]: Turner Frank DO Copies to: MD Turner Pickering, ~ Providers Date of Discharge: 04/06/23 Discharging Provider: Turner Frank Primary Care Provider: Mami Daniels Consults: 04/02/23 19:59 Consult to Nephrology [...] is a 89-year-old who presented here to [facility] as a transfer on 04/02/2023. She [...] amlodipine daily. Her home med list reports [id number] mg but currently shows me a 5 [...] Plan Discharge Plan Patient Disposition: Home Health [facility] Activity: Ambulate as Tolerated Diet: Low-Sodium Additional [...] Patient Ordered By: Turner Frank Follow Up: Mami Daniels MD [Primary Care Provider] - Documented By: Turner Frank DO 04/06/23 12 08 Signed By: <Electronically signed by Turner Frank DO> 04/06/23 1222 [facility] Work Phone: 1(708) 541-452802-14-2024 Progress note Author Turner Frank [facility] April 05, 2023 8:14pm Note Date/Time April 05, 2023 8:14pm [facility] [address] [place], [place] [id number] Hospitalist Progress Note Signed Patient: Hiram Madrid MR#: [id number] : 1935 Acct:[id number] Age/Sex: 87 / F Adm Date: 4 Loc: Room: [address] [place] [address] Type: ADM IN Attending Dr: Turner Frank [...] (Unknown, Verified 02/20/22 09:00) prednisone Allergy (Verified 06/16/23 19:50) Unknown Reaction Active Meds: Active Medications [...] Meq Kcl IV 04/01/24 20:29 0 mls/hr .[id number] [place] Infusion Levothyroxine Sodium 88 mcg 04/03/23 [...] Administration Pravastatin Sodium 80 mg 04/03/23 09:00 02/14/24 08:25 Pravastatin 40 Mg Tablet PO 04/02/24 [...] Documented By: Turner Frank DO 04/05/23 20 Signed By: <Electronically signed by Turner Frank DO> 04/05/232013 [facility] Work Phone: 1(753) 395-128002-14-2024 Progress note Author Gaudencio Romero [facility] April 05, 2023 11:16am Note Date/Time April 05, 2023 11:16am [facility] [address] [place] [address] Nephrology Progress Note Signed Patient: Hiram Madrid MR#: [id number] : 1935 Acct:[id number] Age/Sex: 87 / F Adm Date: 4 Loc: Room: [address] [place] [address] Type: ADM IN Attending Dr: Turner Frank DO Copies to: ~ Date of Service: 04/05/2023 Subjective Subjective Narrative: Ms. Madrid is an 87-year-old white female was transferred from [facility] on 04/02/23 for hyponatremia. Patient did complain for nausea with no vomiting or diarrhea. She had back pain and other vague symptoms that prompted her to go [facility]. ER lab showed sodium 116, potassium 2.3 and magnesium 1.6. Otherlabs unremarkable including creatinine 0.7 mg/dL. EKG showed normal sinus rhythm at 86/min with right bundle branch block. Patient was given 2 g magnesium in the emergency room and subsequently was transferred to [facility] for further management. On arrival, patient was placed on gentle hydration with normal saline with 20 mEq potassium chloride at rate of75 cc/h. Review of his records showed that the patient has a chronic hyponatremia for almost a year however she never seen binder cutter. Sodium has been running in the 120s. [...] [facility] [...] Kcl) 1,000 mls @ 75 mls/hr IV .[id number] [place] Stop: 04/01/24 20:29 Last Infusion: 04/04/23 08:45 Dose: 0 mls/hr Levothyroxine Sodium (Levothyroxine 88 Mcg Tablet) 88 mcg PO DAILY@0630 [place] Stop: 04/02/24 06:29 Last Admin: 04/05/23 05:52 Dose: 88 mcg Lorazepam (Lorazepam 2 Mg/Ml Vial) 0.25 mg IV-PUSH Q4H PRN PRN Reason: Anxiety Stop: 10/01/23 11:38 Losartan Potassium (Losartan 50 Mg Tablet) 100 mg PO DAILY [facility] Stop: 04/02/24 08:59 Last Admin: 04/05/23 08:26 Dose: 100 mg Pantoprazole Sodium (Pantoprazole 40 Mg Tablet.Dr) 40 mg PO DAILY.0630 [facility] Stop: 04/04/24 08:59 Last Admin: 04/05/23 08:25 Dose: 40 mg Pravastatin Sodium (Pravastatin 40 Mg Tablet) 80 mg PO DAILY [facility] Stop: 04/02/24 08:59 Last Admin: 04/05/23 08:25 [...] <Electronically signed by MD Gaudencio Romero> 04/05/23 0837 [facility] Work Phone: 1(200) 757-593302-13-2024 Progress note Author Gaudencio Romero [facility] April 04, 2023 2:06pm Note Date/Time April 04, 2023 2:00pm [facility] [address] [place] [address] Nephrology Progress Note Signed Patient: Hiram Madrid MR#: [id number] : 1935 Acct:[id number] Age/Sex: 87 / F Adm Date: 4 Loc: 4 Room: 7I6843-4 Type: ADM IN Attending Dr: Turner Frank DO Copies to: ~ Date of Service: 04/04/2023 Subjective Subjective Narrative: Ms. Madrid is an 87-year-old white female was transferred from [facility] on 04/02/23 for hyponatremia. Patient did complain for nausea with no vomiting or diarrhea. She had back pain and other vague symptoms that prompted her to go [facility]. ER lab showed sodium 116, potassium 2.3 and magnesium 1.6. Otherlabs unremarkable including creatinine 0.7 mg/dL. EKG showed normal sinus rhythm at 86/min with right bundle branch block. Patient was given 2 g magnesium in the emergency room and subsequently was transferred to [facility] for further management. On arrival, patient was placed on gentle hydration with normal saline with 20 mEq potassium chloride at rate of75 cc/h. Review of his records showed that the patient has a chronic hyponatremia for almost a year however she never seen binder cutter. Sodium has been running in the 120s. [...] 10 Mg Tablet) 10 mg PO DAILY [facility] Stop: 04/02/24 08:59 Last Admin: 04/04/23 10:06 Dose: 10 mg Docusate Sodium (Docusate 100 Mg Capsule) 200 mg PO BID PRN PRN Reason: Constipation Stop: 04/01/24 19:57 Docusate Sodium (Docusate 100 Mg Capsule) 200 mg PO BID [facility] Stop: 04/02/24 08:59 Last Admin: 04/04/23 10:06 Dose: Not Given Hydralazine HCl (Hydralazine 20 Mg/Ml Vial) 10 mg IV-PUSH Q4H PRN PRN Reason: if SBP > 185 Stop: 04/01/24 19:57 Potassium Chloride/Sodium Chloride (0.9 % Nacl-20 Meq Kcl) 1,000 mls @ 75 mls/hr IV .[id number] [facility] Stop: 04/01/24 20:29 Last Infusion: 04/04/23 08:45 Dose: 0 mls/hr Levothyroxine Sodium (Levothyroxine 88 Mcg Tablet) 88 mcg PO DAILY@0630 [facility] Stop: 04/02/24 06:29 Last Admin: 04/04/23 06:26 Dose: 88 mcg Lorazepam (Lorazepam 2 Mg/Ml Vial) 0.25 mg IV-PUSH Q4H PRN PRN Reason: Anxiety Stop: 10/01/23 11:38 Losartan Potassium (Losartan 50 Mg Tablet) 100 mg PO DAILY [facility] Stop: 04/02/24 08:59 Last Admin: 04/04/23 10:06 Dose: 100 mg Pantoprazole Sodium (Pantoprazole 40 Mg Tablet.Dr) 40 mg PO DAILY.06 [place] Stop: 04/04/24 08:59 Pravastatin Sodium (Pravastatin 40 [...] outpatient Documented By: Gaudencio Romero MD 04/04/23 1358 Signed By: <Electronically signed by MD Gaudencio Romero> 04/04/23 5492 [facility] Work Phone: 1(873) 738-440902-13-2024 Progress note Author Turner Frank [facility] April 04, 2023 1:09pm Note Date/Time April 04, 2023 1:09pm [facility] [address] [place] [address] Hospitalist Progress Note Signed Patient: Hiram Madrid MR#: [id number] : 1935 Acct:[id number] Age/Sex: 87 / F Adm Date: 4 Loc: Room: [address] [place] [address] Type: ADM IN Attending Dr: Turner Frank [...] Meq Kcl IV 04/01/24 20:29 0 mls/hr .[id number] [place] Infusion Levothyroxine Sodium 88 mcg 04/03/23 [...] <Electronically signed by Turner Frank DO> 04/04/23 9309 [facility] Work Phone: 1(579) 810-913402-12-2024 Progress note Author Turner Frank [facility] April 03, 2023 7:29pm Note Date/Time April 03, 2023 7:29pm [facility] [address] [place] [address] Hospitalist Progress Note Signed Patient: Hiram Madrid MR#: [id number] : 1935 Acct:[id number] Age/Sex: 87 / F Adm Date: 4 Loc: Room: [address] [place] [address] Type: ADM IN Attending Dr: Turner Frank [...] Meq Kcl IV 04/01/24 20:29 75 mls/hr .[id number] [place] Administration Levothyroxine Sodium 88 mcg 04/03/23 06:30 [...] <Electronically signed by Turner Frank DO> 04/03/231928 [facility] Work Phone: 1(816) 348-141902-12-2024 Consult note Author Gaudencio Romero [facility] April 03, 2023 2:07pm Note Date/Time April 03, 2023 2:07pm [facility] [address] [place] [address] Nephrology Consult Note Signed Patient: Hiram Madrid MR#: [id number] : 1935 Acct:[id number] Age/Sex: 87 / F Adm Date: 4 Loc: Room: [id number] Type: ADM IN Attending Dr: Turner Frank DO Copies to: MD Gaudencio Pickering MD Michael R. Frings, DO~ Providers Consult Date: 04/03/23 Requesting Provider: Turner Frank DO Primary Care Provider: Mami Daniels MD [facility] Reason for Consult: Hyponatremia, sodium 117 on admission History of Present Illness: Ms. aMdrid is an 87-year-old white female was transferred from [facility] on 2/11/24 for hyponatremia. Patient did complain for nausea with no vomiting or diarrhea. She had back pain and other vague symptoms that prompted her to go [facility]. ER lab showed sodium 116, potassium 2.3 and magnesium 1.6. Otherlabs unremarkable including creatinine 0.7 mg/dL. EKG showed normal sinus rhythm at 86/min with right bundle branch block. Patient was given 2 g magnesium in the emergency room and subsequently was transferred to [facility] for further management. On arrival, patient was placed on gentle hydration with normal saline with 20 mEq potassium chloride at rate of75 cc/h. Review of his records showed that the patient has a chronic hyponatremia for almost a year however she never seen binder cutter. Sodium has been running in the 120s. [...] has no ascites or edema. [facility] showed TSH 5.6, urine osmolality 298 and urine sodium 79 mmol/L Review of her medications showed that the patient was on amlodipine, losartan, potassium supplement and hydrochlorothiazide 25 mg daily. She also takes magnesium oxide 400 mg twice a day. No SSRI. Review of Systems Review of Systems All other systems reviewed & are negative unless noted below or in HPI [facility] Medical History (Updated 04/03/23 @ 14:00 by [...] Surgical History (Updated 02/01/23 @ 14:30 by [employer]) History of tonsillectomy Problem List clean-up per [...] 100 Mg Capsule) 200 mg PO BID [facility] Stop: 04/02/24 08:59 Last Admin: 04/03/23 08:58 Dose: Not Given Hydralazine HCl (Hydralazine 20 Mg/Ml Vial) 10 mg IV-PUSH Q4H PRN PRN Reason: if SBP > 185 Stop: 04/01/24 19:57 Potassium Chloride/Sodium Chloride (0.9 % Nacl-20 Meq Kcl) 1,000 mls @ 75 mls/hr IV .[id number] [facility] Stop: 04/01/24 20:29 Last Admin: 04/02/23 21:56 Dose: 75 mls/hr Levothyroxine Sodium (Levothyroxine 88 Mcg Tablet) 88 mcg PO DAILY@0630 [facility] Stop: 04/02/24 06:29 Last Admin: 04/03/23 05:54 Dose: 88 mcg Losartan Potassium (Losartan 50 Mg Tablet) 100 mg PO DAILY [facility] Stop: 04/02/24 08:59 Last Admin: 04/03/23 08:58 Dose: 100 mg Pravastatin Sodium (Pravastatin 40 Mg Tablet) 80 mg PO DAILY [facility] Stop: 04/02/24 08:59 Last Admin: 04/03/23 08:58 [...] 01:50 04:48 MCHC 35.8 H (32.0-35.0) g/dL [place] # (Auto) 1.1 H (0.0-0.8) x10E3/uL Sodium [...] 04/03/23 Range/Units 08:00 10:38 MCHC (32.0-35.0) g/dL [place] # (Auto) (0.0-0.8) x10E3/uL Sodium 118 L* [...] stay Documented By: Gaudencio Romero MD 04/03/23 9739 Signed By: <Electronically signed by MD Gaudencio Romero> 04/03/23 4142 [facility] Work Phone: 1(617) 854-307502-11-2024 History and physical note Author Natividad Gregory [facility] April 02, 2023 8:22pm Note Date/Time April 02, 2023 8:06pm [facility] [address] [place] [address] Hospitalist H&P Signed Patient: Hiram Madrid MR#: [id number] : 1935 Acct:[id number] Age/Sex: 87 / F Adm Date: 4 Loc: Room: [address] [place] [address] Type: ADM IN Attending Dr: Lucy Lockhart MD Copies to: MD Lucy Pickering MD Ruta Semaskiene, MD~ HPI DATE OF EXAMINATION: 04/02/23 CHIEF COMPLAINT: Hyponatremia HISTORY OF PRESENT ILLNESS: 87 years old female was transferred from [facility] for hyponatremia. Itseems like the patient has [...] days ago she has been admitted to [facility] and discharged. Since then she still remains [...] Previous records in the computer system reviewed [facility] Medical History (Updated 04/02/23 @ 20:21 by [...] Surgical History (Updated 02/01/23 @ 14:30 by [employer]) History of tonsillectomy Problem List clean-up per [...] <Electronically signed by Natividad Gregory MD> 04/02/232021 [facility] Work Phone: 1(182) 322-997111-22-2023 NoteNoted 7 beat run of NSVT on 1 week holter monitor, along with SVT, PVCs Recommended to continue coreg 25 mg bid, will place 30 day monitor, and obtain treadmill cardiolite stress test for ischemic evaluation.[facility]11-22-2023 NotePt reports that she has had 5 syncopal episodes since this Summer- some while having a BM, and other episodes while just up and walking.[facility]11-22-2023 NoteWill monitor with routine echocardiogram annually unless pt has concerning symptomsUnProMed[facility]11-22-2023 NoteRecommended to continue ASA and pravastatinUnProMedica Fostoria Community Hospital11-22-2023 Note Hypertension is stable Reviewed B/P log and typically in the mornings her b/p with well controlled 120's/70-80, and in the evenings can be up to 140/80 Continue all meds and will add toprolUnProMedica [facility]ostoria [facility] Hospital 01-11-2023 NoteContinue pravastatinUnProMedica Fostoria Community Hospital11-22-2023 NoteWill monitor with routine echocardiogram annually unless pt has concerning symptomsUnProMedica [facility]11-22-2023 NoteWill monitor with routine echocardiogram annually unless pt has concerning symptomsUnProMedica [facility]11-22-2023 NotePatient here for 3 mo follow up valve disorder and carotid artery stenosis. She has had a few episodes of syncope since last visit. She recently wore Holter monitor. Says Dr. Daniels wants to add metoprolol but she does not want to add another medication. Review of Systems Cardiovascular: Positive for syncope. Hematologic/Lymphatic: Bruises/bleeds easily. All other systems reviewed and are negative.[facility] 01-11-2023 NoteUTP CARDIOLOGY PROGRESS NOTE HPI: Hiram [...] called and was evaluated in ED at [facility]. Admits she has had a couple syncopal episodes in the bathroom while having a BM- last one was at [facility]. States she also has had a couple while just up and walking- normal Day to Day activity. Daughter states that pt is usually out for about 1 minute. Of note patient was direct admitted to the [facility] end of August for electrolyte imbalances low sodium, low potassium, and acute anemia. She was evaluated at [facility] in October for ABD pain/ syncope, [...] The patient states she was shopping in [place] when she felt the need to have [...] a colonoscopy approximately 5 years ago at [facility]. HPI - Altered Mental Status General [...] tablet 3 levothyroxine (Syn (more content not included)...[facility]11-02-2023 Hospital Discharge instructions Patient Education 12/22/2022 12:24:19 [...] transplant. Follow these instructions at home: Take ukft-pke-wublxmi and prescription medicines only as told by [...] provider. Document Revised: 05/26/2020 Document Reviewed: 05/26/2020 [employer] Patient Education 2022 L2C. Follow Up Care 09/06/2022 13:10:43 With:ABHISHEK NOONAN, MIKAYLA Pereira, URL Address: [address] [address] [place] [address] [phone] When: Unknown Comments:6 mos w/ renal fxn (per PCP) [facility] Natalya 09-05-2023 NotePt message/ call that [...] needs to call for appointment Lesly Alaniz QUENCHER OPERATOR Division of Cardiology, [facility]- [phone] Pager- [phone] Email- [email or web address] [facility]08-25-2023 NoteStable and non pitting currentlyUnProMedica [facility]ostoria Community Hospital 10-14-2022 NoteCurrently stable Pt to call for any recurrent syncope or concernsUnProMedica Fostoria Community Hospital08-25-2023 NoteMild on recent echo No concerning symptomsUnProMedica Fostoria Community Hospital08-25-2023 NoteContinue ASA and statinUnProMedica Fostoria Community Hospital08-25-2023 NoteHypertension is uncontrolled 160/75- admits this is where her b/p is at home Increase coreg to 25 mg bid, continue losartan 100 mg, hydrochlorothiazide 25 mg, and amlodipine 10 mgUnProMedica Fostoria Community Hospital08-25-2023 Note Continue pravastatinUnProMedica Fostoria Community Hospital08-25-2023 NoteNo concerning symptoms Will continue to monitor with echocardiogramUnProMedica Fostoria Community Hospital 10-14-2022 NoteNo concerning symptoms Will continue to monitor with echocardiogramUnProMedica Fostoria Community Hospital 10-14-2022 NotePatient here c/o LE edema. Says today they aren't as bad, but she states they're hard and sometimes painful. She has not had lab work since [facility] stay in July 2022. She denies chest pain, lightheadedness, and palpitations. Review of Systems Cardiovascular: Positive for dyspnea on exertion and leg swelling. Hematologic/Lymphatic: Bruises/bleeds easily. All other systems reviewed and are negative.[facility] 10-14-2022 NoteUTP CARDIOLOGY PROGRESS NOTE HPI: Hiram [...] note patient was direct admitted to the [facility] end of August for electrolyte imbalances [...] Stable and non pitting currently RTC 3[facility] Chief Complaint: [...] p.o. twice dominic (more content not included)... [facility] No data available for this section [facility] Future Appointments Appointment Date:06/29/2023 09:30:00 AM Scheduled Provider:MIKAYLA WEISS PA-C Location:[facility] Appointment Type:URO Office Visit [facility] [place] evaluation noteNo assessment information available [facility] Work Phone: Evaluation note* Diagnosis Onset Date Resolution Status HTN (hypertension) acute Hyponatremia acute [facility] Work Phone: Hospital Discharge instructions No data available for this section [facility] Additional Instructions Take Naprosyn as prescribed for mild to moderate pain. Take Keflex as prescribed to prevent infection. Take Zofran as prescribed for nausea while taking oxycodone. Do not drive while taking oxycodone. Take Flomax daily as prescribed. Call the urologist listed below on Monday to schedule follow-up appointment. 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 * Back Pain (Turkmen) documented in this encounter* Discharge Instr - [...] Contact Information Primary Emergency Contact: Andrea Madrid [facility] Mobile Relation: Spouse Secondary Emergency Contact: Watson Townsendy Mobile Relation: Child Corporate Human Resources Manager needed? No Past Surgical History: Past Surgical History: Procedure Laterality Date APPENDECTOMY BACK SURGERY CHOLECYSTECTOMY LUMBAR FUSION N/A 11/13/2018 PLIF L 3-4-5 DECOMPRESSION L3, L4 performed by Lenny Corral MD at [facility] Right Immunization History: There is no immunization [...] Assisted Dressing Independent Toileting Independent Feeding Independent Psychiatric Nursing Assistant Independent Med Delivery whole Wound Care Documentation [...] select all that are sent with patient): {[facility] DME Belongings:[id number]} RN SIGNATURE: MANAGEMENT/SOCIAL WORK SECTION Inpatient Status Date: Patient was admitted to Inpatient Acute Rehab 11/15/18 Readmission Risk Assessment Score: Readmission Risk Risk of Unplanned Readmission: 12 Discharging to Facility/ Agency Name: Karan Sosa Address: Fax: Dialysis Facility (if applicable) Name: Address: Dialysis Schedule: Phone: Fax: Petrophysicist/Refrigerated Company Driver signature: ICIAN SECTION Prognosis: Good Condition at [...] Date: 11/20/2018 Patient Name: Hiram Madrid Account: [id number] : 1935 (83 y.o.) Room: [place] [address] Diagnosis: Impaired mobility and gait secondary to [...] performed by Lenny Corral MD at [facility] Right Precautions: Restrictions/Precautions: [...] to increasing pain) Transfer Assistance: Independent Active Financial Cost Analyst: Yes Mode of Transportation: Car 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 Leisure & Hobbies: Cooking, reading, needlepoint Additional Comments: 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, has been relying more on dtr and spouse due toworsening weakness past few weeks Current Functional Status: ADL Equipment Provided: Sock aid, Electrocardiographic Technician Feeding: Modified independent Grooming: Independent UE Bathing: [...] Limits Cognition Status: Cognition Overall Cognitive Status: [facility] Cognition Comment: 6 7 7 6 6 Perception Status: Perception Overall Perceptual Status: WF Sensation Status: Sensation Overall Sensation Status: [facility] Vision and Hearing Status: Vision Vision: Impaired Vision Exceptions: Wears glasses for reading Hearing Hearing: Exceptions to [facility] Hearing Exceptions: Hard of hearing/hearing concerns, [...] yes, type of HEP: Electronically signed by: AGUSTNI Langford, OTR/L 11/20/2018, 4:46 PM Marlena Yarely Zarate - 11/20/2018 12:35 PM EDT [facility] MUSIC THERAPY Date: 11/20/2018 [...] interested in having music therapy again. [] DC- will attempt to see pt again another day, if time allows. [x] Pt's planned d/c date is before DC- is scheduled on unit again. [] Pt NOT interested in having music therapy again. [facility] 11/[facility]/2018 * Roselyn Schroeder OTA - 11/20/2018 9:59 AM EDT Occupational Therapy Facility/Department: [facility] Daily Treatment [...] 11/20/2018 9:55 AM EDT [facility] NAME: Hiram Madrid : [...] device (slide rail) Walk: 6 - Modified [place] Walks at least 150 feet with an ambulatory device, orthosis or prosthesis OR requires extra amount of time OR there is concern for safety Distance Walked: 200' Wheel Chair: 0 - Activity Not Assessed/Does Not Occur Stairs: 6 - Modified [place] Safely goes up and down at least [...] from Dr. Ellis Holguin D.O., PM&R Attending [phone] [facility] * Khanh White LPN - 11/19/2018 6:00 [...] 2:05 PM EDT Occupational Therapy Facility/Department: [facility] Daily Treatment [...] Physical Therapy Rehab Treatment Note Facility/Department: [facility] Room: [place] [address] NAME: Hiram Madrid : 1935 (83 y.o.) [...] re education: 0 Therapeutic ex: 20 Mikayla Lindsey, INTERACTIVE ACCOUNT MANAGER, 11/19/18 at 2:52 PM * Dulce Stevens, - 11/19/2018 11:20 AM EDT Progress Note Patient: Hiram Madrid Unit/Bed: 38/R238-01 Date of : 1935 Acct: [id number] Admitting Diagnosis: Impaired mobility [Z74.09] Spinal stenosis [...] and tentative discharge home tomorrow. Follows with cook candy in [place]. 11/18/18: called by air liaison and special staff regarding tachycardia. Pt was unaware of [...] to have + orthostatics. Denies hx of PA, CHF or arrhythmia. Follows with a cook candy from [facility] for carotid artery disease and cardiac murmur. [...] to DC home and F/U with regular cook candy as outpatient Attending Supervising Physician's Attestation Statement The patient is a 83 y.o. female. I have performed a history and physical examination of the patient. I discussed the case with the physician food and beverage assistant manager. I reviewed the patient's Past Medical History, [...] Physical Therapy Rehab Treatment Note Facility/Department: [facility] Room: [place] [address] NAME: Hiram Madrid : 1935 (83 y.o.) [...] Physical Therapy Rehab Treatment Note Facility/Department: [facility] Room: [place] [address] NAME: Hiram Madrid : 1935 (83 y.o.) [...] Neuromuscular Education Neuromuscular Comments: Pizano Initiated: other INTERACTIVE ACCOUNT MANAGER finished it: pt scored a 42/56. Bed [...] education: 10 Therapeutic ex: 0 Mikayla Lindsey, INTERACTIVE ACCOUNT MANAGER, 11/19/18 at 11:59 AM * Khanh White [...] Unit/Bed: R238/R238-01 Date of : 1935 Acct: [id number] Admitting Diagnosis: Impaired mobility [Z74.09] Spinal stenosis of lumbosacral region [M48.07] Admit Date: 11/15/2018 Hospital Day: 4 Current Medications: Scheduled Meds: cephALEXin 500 mg Oral 3 times per day njqhuped-sqffjjgfeq-qsgaqvhwc Topical BID enoxaparin 30 mg Subcutaneous Daily [...] woman from homewith spouse who presents to [facility] with the above deficits which impact [...] ms QTc Calculation (Bazett) 463 ms P Gris[place] 58 degrees R Griswold -11 degrees T Griswold 5 degrees Xr Chest Standard (2 Vw) [...] Dr. Ellis Holguin D.O., PM&R Attending [address] [place] [address] * Rachael Graf LPN - 11/18/2018 4:39 [...] and no guarding. Musculoskeletal: Back: Urine Culture [[id number]] Collected: 11/15/18 1905 Order Status: Completed Specimen: Urine, clean catch Updated: 11/17/18 0728 Urine Culture, Routine No growth 24 hours Narrative: ORDERED BY: MAMI COKER SOURCE: Urine Clean Catch COLLECTED: 11/15/18 19:05 ANTIBIOTICS AT DI.: RECEIVED : 11/15/18 19:05 Culture Blood #2 [[id number]] Collected: 11/15/18 1637 Order Status: Completed Specimen: Blood Updated: 11/16/18 1815 Culture, Blood 2 No Growth to date. Any change in status will be called. Narrative: ORDERED BY: MAMI COKER SOURCE: Blood COLLECTED: 11/15/18 16:37 ANTIBIOTICS AT DI.: RECEIVED : 11/15/18 16:42 Culture Blood #1 [[id number]] Collected: 11/15/18 1637 Order Status: Completed Specimen: Blood Updated: 11/16/18 1815 Blood Culture, Routine No Growth to date. Any change in status will be called. Narrative: ORDERED BY: MAMI COKER SOURCE: Blood Blood COLLECTED: 11/15/18 16:37 ANTIBIOTICS AT DI.: RECEIVED : 11/15/18 16:42 ASSESSMENT: Patient Active Problem List Diagnosis Intractable back pain Lumbar spondylosis Impaired mobility Spinal stenosis of lumbosacral region PLAN: Fever leukocytosis observe * Steve Franklin MD - 11/18/2018 11:50 AM EDT Progress Note Patient: Hiram Madrid Unit/Bed: R238/R238 Date of : 1935 Acct: [id number] Admitting Diagnosis: Impaired mobility [Z74.09] Spinal stenosis [...] performed by Lenny Corral MD at [facility] OR [facility] Right History reviewed. No pertinent family history. [...] on phone: None Gets together: None Attends mormon service: None Active member of club or organization: None Attends meetings of clubs or organizations: None Relationship status: None Intimate partner violence: Fear of current or ex partner: None Emotionally abused: None Physically abused: None Forced sexual activity: None Other Topics Concern None Social History Narrative None Subjective/HPI: called by air liaison and special staff regarding tachycardia. Pt was unaware of [...] woman from homewith spouse who presents to [facility] with the above deficits which impact [...] episodic insomnia with situational adjustment disorder: prn Molly, monitor for day time sedation. 7. Falls [...] up labs. Blanca Holguin D.O., PM&R Attending [phone] [facility] [place] * Dana Craig, JANET - 11/17/2018 5:45 PM EDT Monitor room called, said pt had about 18 sec run of svt up to 218; notified cardio. * Faye Summers PTA - 11/17/2018 4:07 PM EDT Physical Therapy Rehab Treatment Note Facility/Department: [facility] Room: R238/R238-01 [...] 2:51 PM EDT Occupational Therapy Facility/Department: [facility] Daily Treatment [...] Physical Therapy Rehab Treatment Note Facility/Department: [facility]: Hiram Madrid : 1935 [...] Physical Therapy Rehab Treatment Note Facility/Department: [facility] NAME: Hiram Madrid : 1935 [...] Ibanez, 11/17/18 at 12:20 PM * Roselyn Schroeder, CLERK OPERATOR - 11/17/2018 8:43 AM EDT Occupational Therapy Facility/Department: [facility] Daily Treatment [...] at below status. ADL Equipment Provided: Sock aid;Electrocardiographic Technician Grooming: Independent UE Bathing: Setup LE Bathing: [...] woman from homewith spouse who presents to [facility] with the above deficits which impact [...] consult,check dopplers Blanca Holguin D.O., PM&R Attending [address] [place] [address] [place] * Jessica Irvin, URIR/Lloyd - 11/16/2018 4:14 PM EDT Occupational Therapy Facility/Department: [facility] Daily Treatment Note NAME: Hiram Madrid : 1935 Date of Service: 11/16/2018 Discharge Recommendations: Continue to assess pending progress OT Equipment Recommendations Other: Continue to assess Assessment Performance deficits / Impairments: Decreased functional mobility ;Decreased ADL status;Decreased strength;Decreased balance;Decreased endurance;Decreased high- level IADLs Assessment: Pt. is an 83 year old woman from home with spouse who presents to [facility] with the above deficits which impact [...] Pain: Yes Objective The patient completed the [facility] Mental Status (UMS) Examination on [...] In 1335 Time Out 1400 Minutes 25 SSA Lee * Lenny Corral MD - 11/16/2018 4:04 PM EDT Patient: Hiram Madrid Unit/Bed: R238/R238-01 Date of : 1935 Acct: [id number] Admitting Diagnosis: Impaired mobility [Z74.09] Spinal stenosis of lumbosacral region [M48.07] Admit Date: 11/15/2018 Hospital Day: 1 Current Medications: Scheduled Meds: [START ON 11/17/2018] enoxaparin 40 mg Subcutaneous Daily sideuiwz-fmfjvgjhec-khmarezmj Topical BID docusate sodium 100 mg Oral [...] to have + orthostatics. Denies hx of PA, CHF or arrhythmia. Follows with a cook candy from [facility] for carotid artery disease and cardiac murmur. [...] performed by Lenny Corral MD at [facility] OR [facility] Right Social History Social History Socioeconomic History [...] on phone: None Gets together: None Attends mormon service: None Active member of club or [...] tablet 80 mg 80 mg Oral Daily EDY Tom CNP polyethylene glycol (GLYCOLAX) packet 17 g 17 [...] Physical Therapy Rehab Treatment Note Facility/Department: [facility] NAME: Hiram Madrid : 1935 (83 y.o.) [...] trainin Neuro re education: 0 Therapeutic ex: Handy Lindsey PTA, 11/16/18 at 3:57 PM * Rhiannon Blank, MICROGRAPHICS SERVICES SUPERVISOR - 11/16/2018 11:21 AM EDT Speech Language [...] in cognitive function at this time. * Albaro Jessica, OTR/L - 11/16/2018 10:58 AM EDT Occupational Therapy [...] from home with spouse who presents to [facility] with the above deficits which impact [...] to increasing pain) Transfer Assistance: Independent Active Financial Cost Analyst: Yes Mode of Transportation: Car Type of [...] Transfer care to supervising OTR/L Jessica Irvin OTR/L * Jena Vega PTA - 11/16/2018 10:35 AM EDT Physical Therapy Rehab Treatment Note Facility/Department: [facility] Room: [place] [address] NAME: Hiram Madrid : 1935 (83 y.o.) [...] 11/16/18 at 11:10 AM * Jessenia Gordon, BROADCAST OPERATIONS TECHNICIAN - 11/16/2018 9:35 AM EDT [facility] RECREATIONAL THERAPY Initial Evaluation Date: 11/16/2018 Patient [...] hearing in left ear) Patient seen at: [phone] Recreation Therapist received referral, chart reviewed and [...] services, its supported services and groups include: [facility] Rehab Support Group, Pet Therapy, Leisure Education, [...] - 11/16/2018 8:20 AM EDT Facility/Department: [facility] Rehabilitation Initial Assessment: Physical Therapy Room: R238/R238-01 NAME: Hiram Madrid : 1935 Date of [...] performed by Lenny Corral MD at [facility] Right Chart Reviewed: Yes Patient assessed for [...] to increasing pain) Transfer Assistance: Independent Active Financial Cost Analyst: Yes Additional Comments: 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, [...] side to side to initiate log roll skilled nursing goals buttermaker continuous churn goal 1: pt to be indep with bed mobility skilled nursing goal 2: pt to be indep with bed transfers buttermaker continuous churn goal 3: pt to [id number] ft with supervision buttermaker continuous churn goal 4: pt to navigate 4 steps with SBA skilled nursing goal 5: for Pizano balance testing ELOS: Plan weeks: 2 Therapy Time: Individual Time In 1000 Time Out 1030 Minutes 30 Lakisha Trevino, PT, 11/16/18 at 12:00 PM * Marybel Ackerman, [facility] - 11/15/2018 11:29 PM EDT Tashia [...] puffs by inhalation with spacer [] Ipratropium [place] 0.02% unit dose by aerosol Ipratropium [place] MDI 2 puffs by inhalation with spacer [] Duoneb (Ipratropium + Albuterol) unit dose by aerosol Ipratropium MDI + Albuterol MDI 2 puffs byinhalation w/spacer MDI to Aerosol [] Albuterol Sulfate MDI Albuterol Sulfate 0.083% unit dose by aerosol [] Levalbuterol MDI 2 puffs by inhalation Levalbuterol 1.25 mg unit dose by aerosol [] Ipratropium [place] MDI by inhalation Ipratropium [place] 0.02% unit dose by aerosol [] Combivent (Ipratropium + Albuterol) MDI by inhalation Duoneb (Ipratropium + Albuterol) unit doseby aerosol Treatment Assessment [Frequency/Schedule]: Change frequency to: ACCUNEB Q4 PRN per Protocol, P&T, [facility] Points 0 1 2 3 4 [...] of lumbosacral region Impaired mobility Vasovagal syncope [facility] [address] [place] [id number] Chief Complaint and Reason for Visit Chief Complaint SYNCOPE Chief Complaint hyponatremia hyponatremia hyponatremia Reason for Visit HTN (hypertension) Hyponatremia Chief Complaint hyponatremia hyponatremia hyponatremia high bp Reason for Visit HTN (hypertension) Hyponatremia Additional Source Comments INFORMATION SOURCE (unrecogn ized section and content) DATE CREATED AUTHOR 04/20/2018 [facility] DATE CREATED AUTHOR AUTHOR'S ORGANIZ ATION 11/24/2018 [facility] DATE CREATED AUTHOR AUTHOR'S ORGANIZ ATION 06/14/[address] [facility] DATE CREATED AUTHOR AUTHOR'S ORGANIZ ATION 01/13/2023 [facility] DATE CREATED AUTHOR AUTHOR'S ORGANIZ ATION 05/12/2023 [facility] DATE CREATED AUTHOR AUTHOR'S ORGANIZ ATION 05/20/2023 [facility] Reason for Visit (unrecogniz ed section and content) Reason Comments Back Pain Left low back pain r adiates down left leg. Pain flared up last monday Status Reason Specialty Diagnoses / Procedures Referre d By Contact Referred To Contact Diagnoses Intractable back pain Lenny Corral MD [address], [address] [place] [address] [facility] Patient Care team informatio n (unrecognized section and content) Team Status: Active Member Role Status Dates Mami Daniels MD Primary Care Provider Active Team Status: Inactive Member Role Status Dates Mami Daniels MD Primary Care Provider Active Camacho Ladd DO Emergency Provider Active Team Status: Inactive Member Role Status Dates Mami Daniels MD Primary Care Provider Active Start: April 02, 2023 End: April 06, 2023 Lucy Lockhart MD Admit Provider Active Start: April 02, 2023 End: April 06, 2023 Gaudencio Romero MD Other Provider Active Start: F joannarurio 2023 End: April 06, 2023 KAMILA Escobar Other Provider Active Start: April 02, 2023 End: April 06, 2023 Fiona Magana MD Other Provider Active Start: rio 2023 End: April 06, 2023 Cachorro Real MD Other Provider Active Star t: April 02, 2023 End: April 06, 2023 Warner Sood MD Other Provider Active Start: April 02, 2023 End: April 06, 2023 Boni Choi MD Other Provider Active Start: waterfall 2023 End: April 06, 2023 Turner Frank DO Attending Provider Active St art: April 02, 2023 End: April 06, 2023 Team Status: Active Member Role Status Dates Mami Daniels MD Primary Care Provider Active Start: April 02, 2023 Lucy Lockhart MD Admit Provider, Other Provider Act kimberlee Start: April 02, 2023 Natividad Gregory MD Attending Provider Active S tart: April 02, 2023 Team Status: Active Member Role Status Dates Mami Daniels MD Primary Care Provider Active Start: [...] Team Status: Inactive Member Role Status Dates Mami Daniels MD Primary Care Provider Active Start: [...] BE BASED ON THE PRIMARY CLINICAL RECORDS. [facility]. provides no warranty or guarantee of the accuracy or completeness of information in this document.
== END 2023-06-16 07:32 | disposition home or self-care (01) ==
LOC: PST 07:31
PROVIDERS: PCP Family Medicine; Visit Provider Surgery
DX: Z01.818 Encounter for other preprocedural examination (principal); D48.5 Neoplasm of uncertain behavior of skin

== ENCOUNTER 2023-06-21 11:16 | Day surgery (SDC) | payer MEDICARE, OTHER, SELFPAY ==
--- NOTE | 2023-06-21 | OP_ITS ---
OPERATION DATE: 06/21/2023 PREOPERATIVE DIAGNOSIS: Enlarging lesion left cheek. POSTOPERATIVE DIAGNOSIS: Enlarging lesion left cheek. PROCEDURE: Excisional biopsy 7 mm raised lesion left nasolabial fold. SURGEON: Turner Chavez M.D. ANESTHESIA: Local with 0.5% Marcaine plain. ESTIMATED BLOOD LOSS: Less than 3 mL. INDICATIONS AND CONSENT: Patient is a 87-year-old female with a history of enlarging lesion of the left nasolabial fold. Indications, risks, benefits, alternatives of proceeding with excisional biopsy under local anesthesia were explained extensively to the patient, including the risks of bleeding, infection, scarring, pain, recurrence, need for further surgery. All of her questions were answered. Informed consent was obtained. PROCEDURE: Patient brought to the operating room, placed in the supine position. The area was prepped and draped in the usual sterile fashion. It was anesthetized with 0.5% Marcaine plain. The lesion was excised in elliptical fashion, down to subcutaneous fat. Total length of the incision was approximately 1 cm. The subcutaneous tissue was re-approximated with interrupted 4-0 Monocryl suture. The skin was then closed with 5-0 nylon simple sutures. There was good hemostasis. A small amount of antibiotic ointment was applied. Patient tolerated procedure well, was discharged home in good condition, to follow up in 5-7 days for suture removal. She is to call sooner with any problems or questions. CC: Addy Clemente M.D. KYLE
[2023-06-21 11:20] VITALS: BP 194/78; PULSE 72; TEMP 36.3; O2SAT 99; BMI 25.5
[2023-06-21 13:37] VITALS: BP 199/90; PULSE 89; O2SAT 96
[2023-06-21 13:39] VITALS: BP 191/87; PULSE 89; O2SAT 97
[2023-06-21] MEDS: BUPIVACAINE HCL 0.5% PF 50 MG/10 ML VIAL 5 ML INJ (13:43)
[2023-06-21] MEDS: BACITRACIN/NEOMYCIN/POLYMYXINB OINTMENT 14 GM TUBE 1 APPLIC TOPICAL (13:46)
== END 2023-06-21 13:55 | disposition home or self-care (01) ==
PROVIDERS: PCP Family Medicine; Visit Provider Surgery
PROC: (CPT 11641; principal; 2023-06-21 11:10)
DX: C44.319 Basal cell carcinoma of skin of other parts of face (principal); I48.91 Unspecified atrial fibrillation; M19.90 Unspecified osteoarthritis, unspecified site; H91.90 Unspecified hearing loss, unspecified ear; E78.00 Pure hypercholesterolemia, unspecified; I10 Essential (primary) hypertension; E03.9 Hypothyroidism, unspecified; G62.9 Polyneuropathy, unspecified; Z87.442 Personal history of urinary calculi; Z90.49 Acquired absence of other specified parts of digestive tract
CPT/HCPCS: 11641; 12051; 88305

== ENCOUNTER 2023-06-28 10:05 | Outpatient (REF) | payer MEDICARE, OTHER, SELFPAY ==
[2023-06-28 11:49] LABS: Alanine Aminotransferase 21 U/L (14-59); Albumin Globulin Ratio 1.1; Albumin Level 3.5 g/dL (3.4-5.0); Alkaline Phosphatase 76 U/L (46-116); Anion Gap 13.3; Aspartate Amino Transferase 20 U/L (15-37); BUN Creatinine Ratio 18.8; Bilirubin Total 0.5 mg/dL (0.2-1.0); Calcium 9.4 mg/dL (8.5-10.1); Carbon Dioxide 27.3 mmol/L (21.0-32.0); Chloride 98 mmol/L (98-107); Estimated GFR (African America >60 (>=60); Estimated GFR (Non-African Ame >60 (>=60); Globulin 3.1 g/dL; Glucose 86 mg/dL (74-106); Potassium 4.6 mmol/L (3.5-5.1); Sodium 134 mmol/L (136-145); Total Protein 6.6 g/dL (6.4-8.2)
== END 2023-06-28 10:06 | disposition home or self-care (01) ==
LOC: LAB 10:05
PROVIDERS: PCP Family Medicine; Visit Provider Family Medicine
DX: E87.1 Hypo-osmolality and hyponatremia (principal)
CPT/HCPCS: 36415; 80053

== ENCOUNTER 2023-07-12 11:57 | Outpatient (REF) | payer MEDICARE, OTHER, SELFPAY ==
--- OUTSIDE RECORDS SUMMARY | 2023-07-12 12:20 | XMS_ITS | CCD ---
Author Organization [facility] CliniSyny Care Team Providers Care Reading Assistant Name Role Phone PHYSICIAN, DEFAULT Admitting Unavailable [...] Care Unavailable NOLBERTO GIBBONS Consulting Unavailable DULCE TSEVENS Consulting Unavailable ELLIS, LENNY H. Consulting Unavailable TY JON Consulting Unavailable KAYLEE, YATOMÁS Consulting Unavailable ELLIS, LENNY H. Attending Unavailable ELLIS, LENNY H. Referring Unavailable CALISTA ACEVES Primary Care Unavailable Calista Aceves Primary Care Provider CALISTA ACEVES Primary Care Physician ADELSO, DR PADILLA Consulting Unavailable CARLAY ., DR BOLAÑOS Primary Care Unavailable ADELSO, DR PADILLA Attending Unavailable ADELSO, DR PADILLA Admitting Unavailable JEREMIAH .DR BOLAÑOS Primary Care Unavailable GUILLERMINAPATHKhoa ., TYLER Attending Kerry vailable LAKSHMIPATHKhoa ., TYLER Admitting Kerry vailable HOKhoa ., DR BOLAÑOS Primary Care Unavailable JEREMIAH ., DR BOLAÑOS Attending Unavailable HOY ., DR BOLAÑOS Admitting Unavailable HOY ., DR BOLAÑOS Attending Unavailable HOY ., DR BOLAÑOS Admitting Unavailable HOY ., DR BOLAÑOS Consulting Unavailable KETAN, DR CALISTA Pereira Primary Care Unavailable TRAY FORMAN Consulting Unavailable TING MIXON Consulting Unavailable JEREMIAH ., DR BOLAÑOS Consulting Unavailable JEREMIAH ., DR BOLAÑOS Primary Care Unavailable HOY ., DR BOLAÑOS Attending Unavailable HOKhoa ., DR BOLAÑOS Admitting Unavailable ACEVES, DR [...] Unavailable HOY ., DR BOLAÑOS Consulting Unavailable CARLAY ., DR BOLAÑOS Primary Care Unavailable JEREMIAH ., DR BOLAÑOS Attending Unavailable JEREMIAH ., DR BOLAÑOS Admitting Unavailable MD Addy Daniels Primary Care Provider [phone] DO Camacho Ladd Emergency Provider [facility] Addy Euceda Primary Care Physician VALERIE DARDEN Attending Unavailable LESLY ALANIZ Attending Unavailable LESLY ALANIZ Attending Unavailable MD Addy Daniels Primary Care Provider MD Lucy Lockhart Admit Provider MD Gaudencio Romero Other Provider KAMILA Pearce Other Provider Unavailable MD Fiona Magana Other Provider MD Cachorro Real Other Provider MD Warner Sood Other Provider MD Boni Choi Other Provider DO Turner Frank Attending Provider [phone] MD Turner Nielsen Emergency Provider Turner Doss Attending Unavailable Turner Doss Admitting Unavailable Addy Daniels Primary Care Unavailable Raymond Harrison Attending Unavailable Raymond Harrison Admitting Unavailable Gaudencio Romero Consulting Unavailable Turner Frank Attending Unavailable Lucy Lockhart Admitting Unavailable Addy Daniels Primary Care Unavailable Katie Pearce Unavailable Fiona Magana Consulting Unavailable Cachorro Real Consulting Unavailable Barrie, Warner Consulting Unavailable Boni Choi Consulting Unavailable Camacho Ladd Attending Unavailable Camacho Ladd Admitting Unavailable Addy Daniels Primary Care Unavailable Turner Nielsen Attending Unavailable Turner Nielsen Admitting Unavailable Addy Daniels Primary Care Unavailable MD Addy Daniels Primary Care Provider [id number] MD Lucy Lockhart Admit Provider MD Gaudencio Romero Other Provider KAZ Pearce-Dk Wilson Other Provider Unavailable MD Fiona Magana Other Provider MD Cachorro Real Other Provider MD Warner Sood Other Provider MD Boni Choi Other Provider DO Turner Frank Attending Provider MD Turner Nielsen Emergency Provider MD Turner Doss Attending Provider [phone] Raymond HARRISON Attending Unavailable Raymond HARRISON Attending Unavailable ABDULLAHIMIKAYLA MARTINEZ Attending Unavailable MIKAYLA WEISS Attending Unavailable Raymond HARRISON Attending Unavailable NILLTurner Attending Unavailable Addy Daniels Referring Unavailable NILL, Turner Mckeon Attending Unavailable NILL, Turner Mckeon Attending Unavailable Allergies Allergy Classification Reported Allergen(s) Allergy Type Date of Onset Reaction(s) Facility (10 sources) predniSONE; Translations: [prednisone] Drug Allergy 8 Hives, Eruption of skin (disorder) [place], [place] (2 sources) predniSONE Drug Allergy 7 [facility] Repository (8 sources) atorvastatin; Translations: [atorvastatin] Drug Allergy 3 Unknown (qualifier value), Weal (disorder) [facility] (4 sources) Ibuprofen; Translations: [ibuprofen] Drug Allergy Unknown (qualifier value), Stomach ache (finding) [facility] (4 sources) Corticosteroids; Translations: [Corticosteroids (Glucocorticoids )] Allergy to substance [address] [facility] (1 source) atorvastatin Drug Allergy 4 [facility] Repository (1 source) predniSONE Drug Allergy 4 [facility] Repository Medications Current Medications Medication Drug Class(es) [...] nebulizer solution amLODIPine 10 mg oral tablet (13 sources) Dihydropyridine Calcium Channel Yadira Start: 08-06-2018 End: 04-06-2023 take 1 tablet by mouth once daily Amlodipine (Norvasc) 10 mg Tablet Active 1 TAB PO Daily April 06, 2023 1:04pm aspirin 81 mg oral capsule (9 sources) Platelet Aggregation Inhibitor, Nonsteroidal Anti-inflammatory Drug Start: 08-10-2022 take 1 mg by mouth every four hours aspirin 81 mg oral capsule mg cap(s), Oral, q4hr Start Date: 08/10/22 Status: Ordered Start: 11-05-2018 aspirin chewab le tablet 81 mg Start: 08-06-2018 End: 04-02-2023 take 1 tablet by mouth once daily Aspirin (Aspir-81) 81 mg Tablet,Delayed Release (Dr/Ec) Discontinued 1 TAB PO Daily August 06, 2018 12:00am April 02, 2023 7:53pm take 1 tablet by neil th once daily aspirin 81 MG tablet Take 81 mg by mouth daily 0 Active bacitracin 0.5 unt/mg / neomycin 0.0035 mg/mg / polymyxin b 10 unt/mg topical ointment (2 sources) Aminoglycoside Antibacterial, Polymyxin-class Antibacterial Start: 11-16-2018 End: 11-18-2018 ymoxhwxp-clfatewjqv-crxccvuu n (NEOSPORIN) ointment carvedilol 6.25 mg oral tablet (3 sources) alpha-Adrenergic Yadira, beta-Adrenergic Yadira Start: 05-03-2023 take 1 tablet by mouth twice daily carvedilol 6.25 mg Tab 6.25 mg = 1 tab(s), Oral, BID, Refills(s) 0 Start Date: 05/03/23 Status: Ordered Start: 08-10-2022 carvedilol Ora l Start Date: 08/10/22 Status: Ordered cinnamon oil liquid 1 drop (1 source) Start: 11-15-2018 cinnamon oil liquid 1 drop citalopram 10 mg oral tablet (2 sources) Serotonin Reuptake Inhibitor Start: 04-19-2023 take 1 tablet by mouth once daily CeleXA 10 mg Tab 10 mg = 1 tab(s), Oral, Daily, Refills(s) 0 Start Date: 2/28/24 Status: Ordered docusate sodium 100 mg oral capsule (1 source) Start: 11-15-2018 take 100 mg by mouth twice daily 100 mg, Oral, 2 TIMES DAILY, First dose on Mon11/15/18 at 2100 Do not crush or break Post-op 0.3 ml enoxaparin sodium 100 mg/ml prefilled syringe (2 sources) Low Molecular Weight Heparin Start: 11-17-2018 enoxaparin (LOVENOX) injection 30 mg Start: 11-05-2018 inject 40 mg by subc utaneous injection once daily 40 mg, Subcutaneous, DAILY, First dose on Mon11/05/18 at 0900 famotidine 20 mg oral tablet [...] Oral, 3 TIMES DAILY, First dose on Mon11/15/18 at 2100 12 hr guaiFENesin 600 mg extended release oral tablet (1 source) Start: 11-15-2018 guaiFENesin (MUCINEX) extended release tablet 600 mg lactulose 667 mg/ml oral solution (1 source) Osmotic Laxative Start: 11-17-2018 lactulose (CHRONULAC) 10 GM/15ML solution 20 g levothyroxine sodium 0.088 mg oral tablet (12 sources) l-Thyroxine Start: 08-09-2022 take 1 tablet by mouth once daily levothyroxine 88 mcg (0.088 mg) Tab 88 mcg = 1 tab(s), Oral, Daily, Refills(s) 0 Start Date: 08/09/22 Status: Ordered Start: 08-06-2018 take 1 tablet by neil th once daily Levothyroxine (Synthroid) 88 mcg Tablet Active 1 TAB PO Daily August 06, 2018 12:00am End: 11-19-2018 levothyroxine (SYNTHROID) 10 0 MCG tablet Take 88 mcg by mouth Daily 0 11/19/2018 Discontinued (Stop Taking at Discharge) losartan potassium 100 mg oral tablet (11 sources) Angiotensin 2 Receptor Yadira Start: 11-16-2018 [...] Ordered magnesium oxide 400 mg oral tablet (5 sources) Start: 04-19-2023 take 1 tablet by mouth three times daily magnesium oxide 400 mg Tab 400 mg = 1 tab(s), Oral, TID, Refills(s) 0 Start Date: 04/19/23 Status: Ordered Start: 04-02-2023 take 400 mg by mouth twice dejon ly Magnesium Oxide Active 400 MG PO Twice daily April 02, 2023 1:00am 1 ml morphine sulfate 4 mg/ml cartridge (2 sources) Opioid Agonist Start: 11-04-2018 morphine injec tion 4 mg Start: 11-04-2018 End: 11-04-2018 morphine (PF) injection 4 mg ondansetron 4 mg oral tablet (6 sources) Serotonin-3 Receptor Antagonist Start: 08-05-2022 take 4 mg by mouth once daily Ondansetron Hcl Active 4 MG PO Daily 5 August 05, 2022 12:00am Start: 11-05-2018 4 mg, Intraven ous, EVERY 6 HOURS PRN, Nausea, Starting 11/05/18 at 1830 Start: 11-04-2018 End: 11-04-2018 ondansetron (ZOFRAN) injecti on 4 mg pantoprazole 40 mg delayed release oral tablet (5 sources) Proton Pump Inhibitor Start: 04-04-2023 take 1 tablet by mouth once daily Pantoprazole [address] Tab 40 mg = 1 tab(s), Oral, Daily, Refills(s) 0 Start Date: 04/19/23 Status: Ordered polyethylene glycol 3350 27994 mg powder for oral solution (1 source) Osmotic Laxative Start: 11-15-2018 polyethylene glycol (GLYCOLAX) packet 17 g Potassium Chloride (12 sources) Start: 08-10-2022 Potassium Chlo ride (Upn-Reln-Dhx 10) 20 mEq, Oral, TID Start Date: 08/10/22 Status: Ordered Start: 08-10-2022 Potassium Chlo ride (Xdg-Axwy-Odb 10) mEq, Oral, BID Start Date: 08/10/22 [...] TAB PO Daily August 06, 2018 12:00am pravastatin sodium 80 mg oral tablet (11 sources) HMG-CoA Reductase Inhibitor Start: 08-06-2018 take 1 tablet by mouth once daily pravastatin 80 mg Tab 80 mg = 1 tab(s), Oral, Daily, Refills(s) 0 Start Date: 08/09/22 Status: Ordered sennosides, snf 8.6 mg oral tablet (1 [...] Sig (Original) cephalexin 500 mg oral capsule (7 sources) Cephalosporin Antibacterial Start: 08-05-2022 End: 04-02-2023 take 500 mg by mouth twice daily Cephalexin Discontinued 500 MG PO Twice daily 14 August 05, 2022 12:00am April 02, 2023 7:53pm Start: 11-19-2018 End: 11-29-2018 take 1 capsule [...] # 2 tab(s), Refills(s) 0, Pharmacy: [facility], 155, cm, 08/10/22 9:03:00 EDT, Height/Length Dosing, 65, kg, 08/10/22 9:03:00 EDT, Weight Dosing Start Date: 08/30/22 Status: Ordered gadoteridol (PROHANCE) injection 15 mL (1 source) Start: 11-05-2018 End: 11-05-2018 gadoteridol (PROHANCE) injection 15 mL hydroCHLOROthiazide 25 mg oral tablet (4 sources) Thiazide Diuretic Start: 04-02-2023 End: 04-06-2023 take 25 mg by mouth once daily Hydrochlorothiazide Discontinued 25 MG PO Daily April 02, 2023 1:00am April 06, 2023 1:07pm Start: 08-10-2022 hydrochlorothi azide Oral, Daily Start [...] 11/19/2018 Discontinued naproxen 500 mg oral tablet (4 sources) Nonsteroidal Anti-inflammatory Drug Start: 08-05-2022 End: 04-02-2023 take 1 tablet by mouth twice daily Naproxen (Naprosyn) 500 mg tablet Discontinued 500 MG PO Twice daily 11 24August 05, 2022 12:00am April 02, 2023 7:53pm oxyCODONE hydrochloride 5 mg oral tablet (4 sources) Opioid Agonist Start: 08-05-2022 End: 04-02-2023 take 5 mg by mouth once daily Oxycodone Discontinued 5 MG PO Daily 06 24August 05, 2022 April 02, 2023 7:53pm piperacillin-tazoba ctam (ZOSYN) 3.375 g in dextrose 5 % 50 mL IVPB (mini-bag) (1 source) Start: 11-15-2018 End: 11-17-2018 piperacillin-tazoba ctam (ZOSYN) 3.375 g in dextrose 5 % 50 mL IVPB (mini-bag) potassium bicarbonate 25 meq effervescent oral tablet (1 source) Start: 11-04-2018 End: 11-04-2018 potassium bicarbonate (K-LYTE) disintegrating tablet 50 mEq tamsulosin hydrochloride 0.4 mg oral capsule (4 sources) alpha-Adrenergic Yadira Start: 08-05-2022 End: 04-02-2023 take 1 capsule by mouth once daily Tamsulosin (Flomax) 0.4 mg capsule Discontinued 0.4 MG PO Daily August 05, 2022 12:00am April 02, 2023 7:54pm vancomycin 1000 mg IVPB in 250 mL [...] Problem Date Documented Date Episodic/Chronic Abdominal pain (4 sources) Abdominal pain; Translations: [Unspecified abdominal pain] 08-05-2022 Episodic Calculus of urinary tract (9 sources) Kidney stone; Translations: [Calculus of kidney] Onset: 08-05-2022 08-05-2022 Episodic Cardiac dysrhythmias (3 sources) Atrial fibrillation 08-10-2022 Chronic Conduction disorders (2 sources) Right bundle branch block 04-19-2023 Chronic Diseases of white blood cells (1 source) Elevated white blood cell count, unspecified; Translations: [ELEVATED WHITE BLOOD CELL COUNT UNS] Onset: 12-31-2021 Chronic Disorders of lipid metabolism (12 sources) Pure hypercholesterolemia, unspecified; Translations: [Hyperlipidemia, unspecified] Onset: 08-06-2021 Chronic Essential hypertension (20 sources) Essential (primary) hypertension; Translations: [Hypertensive disorder] [...] failure] Onset: 04-04-2022 Chronic Nausea and vomiting (5 sources) Nausea; Translations: [Nausea and vomiting] Onset: 12-31-2021 08-05-2022 Episodic Neoplasms of unspecified nature or uncertain behavior (3 sources) Neoplasm of uncertain behavior of skin; Translations: [Neoplasm of uncertain behavior of skin] Onset: 05-03-2023 Episodic Occlusion or stenosis of precerebral arteries (2 sources) Occlusion and stenosis of bilateral carotid arteries; Translations: [Occlusion and stenosis of bilateral carotid arteries] Onset: 04-04-2022 Chronic Osteoarthritis (3 sources) Arthritis 08-10-2022 Chronic Other diseases of kidney and ureters (4 sources) Hydronephrosis; Translations: [Unspecified hydronephrosis] Onset: 12-19-2022 Episodic Other diseases of kidney and ureters (3 sources) 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 Other ear and sense organ disorders (3 sources) Hearing loss 08-10-2022 Chronic Other injuries and conditions due to external causes (3 sources) Foreign body in bladder 09-06-2022 Episodic Other nervous system disorders (3 sources) Neuropathy 08-09-2022 Chronic Other non-epithelial cancer of skin (2 sources) Basal cell carcinoma of nose; Translations: [Basal cell carcinoma of skin of nose] Onset: 06-28-2023 Episodic Other nutritional; endocrine; and metabolic disorders (2 sources) Hypomagnesemia 04-19-2023 Chronic Other screening for suspected conditions (not mental disorders or infectious disease) (2 sources) Abnormal electrocardiogram [ECG] [EKG]; Translations: [Abnormal electrocardiogram (ECG) (EKG)] Onset: 01-11-2023 Episodic Spondylosis; intervertebral disc disorders; other back problems (1 source) Lumbar spondylosis; Translations: [Lumbar spondylosis] Onset: 11-13-2018 11-13-2018 Chronic Thyroid disorders (3 sources) Hypothyroidism, unspecified; Translations: [Hypothyroidism] Onset: 11-10-2021 04-19-2023 Chronic Thyroid disorders (1 source) Disorder of thyroid gland 08-09-2022 Episodic Unclassified (1 source) CONTACT W/AND (SUSP) EXPOS COVID-19; Translations: [CONTACT W/AND (SUSP) EXPOS COVID-19] Onset: 12-31-2021 Unclassified (1 source) Other ventricular tachycardia; Translations: [Other ventricular tachycardia] Onset: 01-11-2023 Unclassified (2 sources) Body mass index 20-24 - normal 05-03-2023 [...] Onset: 12-31-2021 Episodic 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 source) 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; Translations: [NIGHT WORKER CURRENT USE OF ASPIRIN] Onset: 12-31-2021 Episodic 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 source) Other terminal operator (current) drug therapy; Translations: [OTH NIGHT WORKER CURRENT DRUG THERAPY] Onset: 12-31-2021 Episodic Residual codes; unclassified (2 sources) Localized edema; Translations: [Localized edema] Onset: 04-04-2022 Episodic Spondylosis; intervertebral disc disorders; other back problems (10 sources) Lumbar radiculopathy; Translations: [Intractable low back pain] Onset: 11-04-2018 11-04-2018 Episodic Syncope (10 sources) Vasovagal syncope; Translations: [Syncope] Onset: 04-04-2022 11-19-2018 Episodic Unclassified (3 sources) Long-term current use of aspirin 08-10-2022 Unclassified (1 source) Other ventricular tachycardia; Translations: [Other ventricular tachycardia] Onset: 01-11-2023 Results Test Name Value Interpretation Reference Range Facility Ambulatory Visit Summaryon 0 06-28-2023 Ambulatory Visit Summary HIRAM MADRID :1935 Visit Date:06/28/2023 Ambulatory Visit Instructions Your Diagnosis Basal cell carcinoma of nasolabial groove Your Care Team Attending Physician - ROMARIO DUMONT, Turner Mckeon Primary Care Physician - Addy Daniels [...] mg DR Tab) potassium chloride (Potassium Chloride (Zqj-Dezm-Oiz 10)) pravastatin (pravastatin 80 mg Tab) Procedures Performed Excision of basal cell carcinoma (06/21/2023), Accessory mobilization of the lumbar spine, Appendectomy, Bilateral salpingo-oophorectomy, Cataract extraction and insertion of intraocular lens, Cholecystectomy, Colonoscopy, Fusion of lumbar spine, Tonsillectomy. Medications What How Much When Instructions Unchanged amlodipine (amLODIPine 10 mg Tab) 1 Tablets By Mouth Every day Contact prescribing physician if questions or concerns Unchanged carvedilol (carvedilol 6.25 mg Tab) 1 Tablets By Mouth 2 times a day Contact prescribing physician if questions or concerns Unchanged citalopram (CeleXA 10 mg Tab) 1 Tablets By Mouth Every day Contact prescribing physician if questions or concerns Unchanged levothyroxine (levothyroxine 88 mcg (0.088 mg) Tab) 1 Tablets By Mouth Every day Contact prescribing physician if questions or concerns Unchanged losartan (losartan 100 mg Tab) 1 Tablets By Mouth Every day Contact prescribing physician if questions or concerns Unchanged magnesium oxide (magnesium oxide 400 mg Tab) 1 Tablets By Mouth 3 times a day Contact prescribing physician if questions or concerns Unchanged pantoprazole (Pantoprazole [address] Tab) 1 Tablets By Mouth Every day Contact prescribing physician if questions or concerns Unchanged potassium chloride (Potassium Chloride (Lev-Lzwy-Shu 10)) 20 Milliequivalent By Mouth 3 times a day Contact prescribing physician if questions or concerns Unchanged pravastatin (pravastatin 80 mg Tab) 1 Tablets By Mouth Every day Contact prescribing physician if questions or concerns Allergies Motrin (Stomach upset) atorvastatin (Hives) predniSONE (Rash) Problems Ongoing - Any problem that you are currently receiving treatment for. Arthritis Atrial fibrillation Basal cell carcinoma of nasolabial groove BMI 24.0-24.9, adult Deafness Foreign body in bladder Hydronephrosis, right Hypercholesteremia Hyperlipidemia Hypertension Hypomagnesemia Hyponatremia Hypothyroidism Kidney stone Neoplasm of uncertain behavior of skin of face Neuropathy RBBB (right bundle branch block) Ureteral stenosis Historical - Any problem that you are no longer receiving treatment for. Aspirin long-term use Patient Survey You may receive a survey via text or e-mail asking about your office visit. Please share your experience with us by completing your survey. We appreciate your feedback and thank you for choosing us for your care. Chago Russo [facility] General Surgery Office/Clini c Noteon 06-28-2023 General Surgery Office/Clinic Note Chief Complaint follow up in office excisional biopsy HPI Staff 7 day follow up post in-office excisional biopsy lesion of left nasolabial fold. Denies discomfort, bleeding or drainage. Sutures intact. History of Present Illness 1 week s/p excisional biopsy enlarging lesion left nasolabial fold; doing well, no pain or drainage; pathology consistent with basal cell cancer, epithelioid type; margins negative. Review of Systems ROS - Provider Constitutional: no fever, no sweats, no weight loss. Eyes: no glasses, no blurred vision, no visual loss. ENMT: no dentures, no hoarseness, no swallowing difficulties, no hearing loss, no ear infection(s), no nose bleeds. Cardiovascular: normal blood pressure, no chest pain, regular heartbeat, no heart murmur. Respiratory: no shortness of breath, no cough, no asthma, no wheezing. Gastrointestinal: no nausea, no vomiting, no diarrhea, no constipation, no blood in stool, no change in bowel habits, no abdominal pain, no hepatitis. Genitourinary: no kidney stones, no urine infection, no dysuria. Musculoskeletal: no pain, no weakness. Skin: no changing moles, no rash, no skin lumps. Neurologic: no seizures, no epilepsy, no headache. Psychiatric: no emotional or psychiatric problem. Heme/Lymph: no bleeding problems, no anemia, no blood clots, no transfusions. Allergy/Immunologic: no swollen lymph nodes/glands, no IV drug abuse. Other: Additional ROS info: Except as noted in the above Review of Systems and in the History of Present Illness, all other systems have been reviewed and are negative or noncontributory. Physical Exam skin: incision healing well, no erythema or drainage, no ecchymosis. Assessment/Plan 1. Basal cell carcinoma of nasolabial groove (C44.311: Basal cell carcinoma of skin of nose) doing well, sutures removed, call with problems/questions. Follow-up No qualifying data available Problem List/Past Medical History Ongoing Arthritis Atrial fibrillation Basal cell carcinoma of nasolabial groove BMI 24.0-24.9, adult Deafness Foreign body in bladder Hydronephrosis, right Hypercholesteremia Hyperlipidemia Hypertension Hypomagnesemia Hyponatremia Hypothyroidism Kidney stone Neoplasm of uncertain behavior of skin of face Neuropathy RBBB (right bundle branch block) Ureteral stenosis Historical Aspirin long-term use Procedure/Surgical History Excision of basal cell carcinoma (06/21/2023), Accessory mobilization of the lumbar spine, Appendectomy, [...] mg= 1 tab(s), Oral, Daily Potassium Chloride (Imp-Sfqc-Lkt 10), 20 mEq, Oral, TID pravastatin 80 [...] Recorded influenza virus vaccine, inactivated 12/11/2014 Recorded Normal [facility] Comment on above: Result Comment: Elec tronically Signed By: ROMARIO DUMONT, Turner Connor\Date and Time Signed: 06/28/23 15:02 EDT Pathology Noteon 06-26-2023 Pathology Note [id number] 0TIFF Normal [facility] Operative Reporton Operative Report [id number] 0TIFF Normal [facility] Carlos 06-21-2023 L Specimen: [id number] Received: 06/22/23 Status: BEST Orr Num: [id number] Spec Type: Surgical Subm Dr: Turner Doss MD FACS Tissues: A Skin-Other than Cyst, tag, debridement or plastic repair (LT CHEEK) Procedures: HE, Gross/Micro L4 Age/ Patient Sex Location Account Attending Physician Hiram Madrid 87/F LABELL [id number] Turner Doss MD FACS SPEC NUM: [id number] RECD: 06/22/23 STATUS: BEST ORR NUM: [id number] DI: 06/21/[address]: Turner Doss MD FACS ENTERED: 06/22/23 [facility] DR: Lucian Avilez SPEC TYPE: Surgical DEPT: MARGARET HORN ORDERED: HE, Gross/Micro L4 ORDERED: HE, Gross/Micro L4 Pathological Diagnosis Skin, left cheek, excision: -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 The specimen is inked black along its base, bisected and entirely submitted in A1. Clinical history: Changing lesion left cheek TW CPT Codes 72633 ---- ---- Specimen: [id number] Received: 06/22/23-1318 Status: BEST Orr Num: [id number] Spec Type: Surgical Subm Dr: Turner Doss MD FACS Tissues: A Skin-Other than Cyst, tag, debridement or plastic repair (LT CHEEK) Procedures: Antonio FINE/Karyna L4 ---- Patient: Hiram Madrid [id number] (Continued) ---- Signed (signature on file) Ángel Dodson MD 06/23/231633 Normal [facility] Consent for Procedure/Surger yon 05-04-2023 Consent for Procedure/Surgery [id number] 0TIFF Normal [facility] Facesheeton 05-04-2023 Facesheet [id number]#1.0 0TIFF Normal [facility] Ambulatory Visit Summaryon 0 05-03-2023 Ambulatory Visit Summary HIRAM MADRID :1935 Visit Date:05/03/2023 Ambulatory Visit Instructions Your Care Team Attending Physician - ROMARIO DUMONT, Turner Mckeon Primary Care Physician - Jeremiah DUMONT, Addy Referring Physician - Jeremiah DUMONT, Addy This Is Your Medications List Contact prescribing physician if questions or concerns amlodipine (amLODIPine 10 mg Tab) carvedilol (carvedilol 6.25 mg Tab) citalopram (CeleXA 10 mg Tab) levothyroxine (levothyroxine 88 mcg (0.088 mg) Tab) losartan (losartan 100 mg Tab) magnesium oxide (magnesium oxide 400 mg Tab) pantoprazole (Pantoprazole [address] Tab) potassium chloride (Potassium Chloride (Gwo-Avve-Vpy 10)) pravastatin (pravastatin 80 mg Tab) Procedures [...] MIKAYLA WEISS PA-C Where: [facility] Physician Referralon 024 Physician Referral [id number] 20 [id number]#[id number] [id number] [facility] Physician Referralon 024 Physician Referral [id number] 20 [id number]#[id number] [id number] [facility] Laboratory - Chemistry and C hemistry - challengeon 04-12-2023 Calcium [Mass/Vol] 8.9 mg/dL [facility] Chloride [Moles/Vol] 98 mmol/L [facility] CO2 [Moles/Vol] 25.9 mmol/L [facility] Creatinine [Mass/Vol] 0.76 mg/dL [facility] Glucose [Mass/Vol] 113 mg/dL [facility] Potassium [Moles/Vol] 4.0 mmol/L [facility] Sodium [Moles/Vol] 135 mmol/L [facility] Urea nitrogen [Mass/Vol] 12.0 mg/dL [facility] Basic Metabolic Panelon 03-23 Anion gap [Moles/Vol] 14.8 mmol/L Normal 6.0-15.0 [facility] Comment on above: Performed By: #### C BC, CMP #### [address] Calcium [Mass/Vol] 9.2 mg/dL Normal 8.6-10.3 [facility] Comment on above: Performed By: #### C BC, CMP #### [address] Chloride [Moles/Vol] 91 mmol/L Low 98-107 [facility] Comment on above: Performed By: #### C BC, CMP #### [address] CO2 [Moles/Vol] 27.7 mmol/L Normal 21.0-31.0 [facility] Comment on above: Performed By: #### C BC, CMP #### [address] Creatinine [Mass/Vol] 0.56 mg/dL Low 0.60-1.20 [facility] Comment on above: Performed By: #### C BC, CMP #### [place] [address] [place] Creatinine Clr Calc Pharmacy 42.78 Normal [facility] Comment on above: Result Comment: PERF ORMED BY: [place] [address] PATHOLOGIST [employer] GOSIA MCADAMS M.D. Performed By: #### C BC, CMP #### [place] [address] [place] GFR/1.73 sq M.predicted MDRD (S/P/Bld) [Vol rate/Area] mL/min/{1.73_m2} Normal [facility] Comment on above: Performed By: #### C BC, CMP #### [facility] [address] Glucose [Mass/Vol] 116 mg/dL High 70-100 [facility] Comment on above: Result Comment: [place] Glucose Reference Range is dependent on time and content of last meal. Glucose of more than 200 mg/dL in a nonstressed, ambulatory subject supports the diagnosis of Diabetes Mellitus. ADA recommended reference range Performed By: #### C BC, CMP #### [facility] [address] Potassium [Moles/Vol] 3.5 mmol/L Normal 3.5-5.1 [facility] Comment on above: Performed By: #### C BC, CMP #### [facility] [address] [place] [address] [place] Sodium [Moles/Vol] 130 mmol/L Low 136-145 [facility] Comment on above: Performed By: #### C BC, CMP #### [facility] [address] [place] [id number] [place] Urea nitrogen [Mass/Vol] 8 mg/dL Normal 7-25 [facility] Comment on above: Performed By: #### C BC, CMP #### [facility] [address] Calcium [Mass/volume] in Ser um or PlasmaOrdered By: Turner Frank on 04-05-2023 Calcium [Mass/Vol] 9.2 mg/dL 8.6-10.3 [facility] Carbon dioxide, total [Moles /volume] in Serum or PlasmaOrdered By: Turner Frank on 04-05-2023 CO2 [Moles/Vol] 27.7 mmol/L 21.0-31.0 [facility] Chloride [Moles/volume] in S [place] or PlasmaOrdered By: Turner Frank on 04-05-2023 Chloride [Moles/Vol] 91 mmol/L 98-107 [facility] Creatinine [Mass/volume] in Serum or PlasmaOrdered By: Turner Frank on 04-05-2023 Creatinine [Mass/Vol] 0.56 mg/dL 0.60-1.20 [facility] Glucose [Mass/volume] in Ser um or PlasmaOrdered By: Turner Frank on 04-05-2023 Glucose [Mass/Vol] 116 mg/dL 70-100 [facility] Comment on above: ADA recommended refe rence rangeRandom Glucose Reference Range is dependent on time and content of last meal. Glucose of more than 200 mg/dL in a nonstressed, ambulatory subject supports the diagnosis of Diabetes Mellitus. No Panel InformationOrdered By: Turner Frank on 04-05-2023 Estimated GFR (CKD-EPI) > 60.0 mL/Min [facility] Creatinine Clearance (Chem 42.78 [facility] Potassium [Moles/volume] in Serum or PlasmaOrdered By: Turner Frank on 04-05-2023 Potassium [Moles/Vol] 3.5 mmol/L 3.5-5.1 [facility] Serum or plasma anion gap de terminationOrdered By: Turner Frank on 04-05-2023 Anion gap [Moles/Vol] 14.8 mmol/L 6.0-15.0 [facility] Sodium [Moles/volume] in Ser um or PlasmaOrdered By: Turner Frank on 04-05-2023 Sodium [Moles/Vol] 130 mmol/L 136-145 [facility] Urea nitrogen [Mass/volume] in Serum or PlasmaOrdered By: Turner Frank on 04-05-2023 Urea nitrogen [Mass/Vol] 8 mg/dL 7-25 [facility] Basic Metabolic Panelon 03-23 Anion gap [Moles/Vol] 10.8 mmol/L Normal 6.0-15.0 [facility] Comment on above: Performed By: #### B MP #### [facility] [address] Calcium [Mass/Vol] 9.0 mg/dL Normal 8.6-10.3 [facility] Comment on above: Performed By: #### B MP #### [address] Chloride [Moles/Vol] 92 mmol/L Low 98-107 [facility] Comment on above: Performed By: #### B MP #### [address] CO2 [Moles/Vol] 26.3 mmol/L Normal 21.0-31.0 [facility] Comment on above: Performed By: #### B MP #### [address] Creatinine [Mass/Vol] 0.61 mg/dL Normal 0.60-1.20 [facility] Comment on above: Performed By: #### B MP #### [address] Creatinine Clr Calc Pharmacy 42.78 Normal [facility] Comment on above: Result Comment: PERF ORMED BY: [place] [address] PATHOLOGIST [employer] GOSIA MCADAMS M.D. Performed By: #### B MP #### [address] GFR/1.73 sq M.predicted MDRD (S/P/Bld) [Vol rate/Area] mL/min/{1.73_m2} Normal [facility] Comment on above: Performed By: #### B MP #### [address] Glucose [Mass/Vol] 177 mg/dL High 70-100 [facility] Comment on above: Result Comment: [place] Glucose Reference Range is dependent on time and content of last meal. Glucose of more than 200 mg/dL in a nonstressed, ambulatory subject supports the diagnosis of Diabetes Mellitus. ADA recommended reference range Performed By: #### B MP #### [address] Potassium [Moles/Vol] 3.1 mmol/L Low 3.5-5.1 [facility] Comment on above: Performed By: #### B MP #### [address] Sodium [Moles/Vol] 126 mmol/L Low 136-145 [facility] Comment on above: Performed By: #### B MP #### [address] Urea nitrogen [Mass/Vol] 7 mg/dL Normal 7-25 [facility] Comment on above: Performed By: #### B MP #### [address] Anion gap [Moles/Vol] 10.3 mmol/L Normal 6.0-15.0 [facility] Comment on above: Performed By: #### T 4F, BMP #### [address] Calcium [Mass/Vol] 8.6 mg/dL Normal 8.6-10.3 [facility] Comment on above: Performed By: #### T 4F, BMP #### [address] Chloride [Moles/Vol] 93 mmol/L Low 98-107 [facility] Comment on above: Performed By: #### T 4F, BMP #### [address] CO2 [Moles/Vol] 27.2 mmol/L Normal 21.0-31.0 [facility] Comment on above: Performed By: #### T 4F, BMP #### [address] Creatinine [Mass/Vol] 0.59 mg/dL Low 0.60-1.20 [facility] Comment on above: Performed By: #### T 4F, BMP #### [place] [address] [place] Creatinine Clr Calc Pharmacy 42.39 Normal [facility] Comment on above: Performed By: #### T 4F, BMP #### [address] GFR/1.73 sq M.predicted MDRD (S/P/Bld) [Vol rate/Area] mL/min/{1.73_m2} Normal [facility] Comment on above: Performed By: #### T 4F, BMP #### [address] Glucose [Mass/Vol] 107 mg/dL High 70-100 [facility] Comment on above: Result Comment: [place] Glucose Reference Range is dependent on time and content of last meal. Glucose of more than 200 mg/dL in a nonstressed, ambulatory subject supports the diagnosis of Diabetes Mellitus. ADA recommended reference range Performed By: #### T 4F, BMP #### [address] Potassium [Moles/Vol] 3.5 mmol/L Normal 3.5-5.1 [facility] Comment on above: Performed By: #### T 4F, BMP #### [address] Sodium [Moles/Vol] 127 mmol/L Low 136-145 [facility] Comment on above: Performed By: #### T 4F, BMP #### [address] Urea nitrogen [Mass/Vol] 7 mg/dL Normal 7-25 [facility] Comment on above: Performed By: #### T 4F, BMP #### [address] Free T4 (Free Thyroxine)on 04-04-2023 Free T4 [Mass/Vol] 1.41 ng/dL High 0.61-1.12 [facility] Comment on above: Result Comment: PERF ORMED BY: [place] [address] PATHOLOGIST [employer] GOISA MCADAMS M.D. Performed By: #### T 4F, BMP #### [address] Thyroxine (T4) free [Mass/vo lume] in Serum or PlasmaOrdered By: Turner Frank on 04-04-2023 Free T4 [Mass/Vol] 1.41 ng/dL 0.61-1.12 [facility] Alanine aminotransferase [En zymatic activity/volume] in Serum or PlasmaOrdered By: Natividad Gregory on 04-03-2023 ALT [Catalytic activity/Vol] 14 U/L 7-52 [facility] Albumin [Mass/volume] in Ser um or Plasma by Bromocresol green (BCG) dye binding methoOrdered By: Natividad Gregory on 04-03-2023 Albumin BCG dye [Mass/Vol] 3.7 g/dL 3.5-5.7 [facility] Alkaline phosphatase [Enzyma tic activity/volume] in Serum or PlasmaOrdered By: Natividad Gregory on 04-03-2023 ALP [Catalytic activity/Vol] 56 U/L 34-104 [facility] Aspartate aminotransferase [ Enzymatic activity/volume] in Serum or PlasmaOrdered By: Natividad Gregory on 04-03-2023 AST [Catalytic activity/Vol] 20 U/L 13-39 [facility] Basic Metabolic Panelon 03-23 Anion gap [Moles/Vol] 13.3 mmol/L Normal 6.0-15.0 [facility] Comment on above: Performed By: #### B MP #### [facility] [address] [place] [address] [place] Calcium [Mass/Vol] 8.9 mg/dL Normal 8.6-10.3 [facility] Comment on above: Performed By: #### B MP #### [facility] [address] [place] [address] [place] Chloride [Moles/Vol] 86 mmol/L Low 98-107 [facility] Comment on above: Performed By: #### B MP #### [facility] [address] [place] [address] [place] CO2 [Moles/Vol] 26.0 mmol/L Normal 21.0-31.0 [facility] Comment on above: Performed By: #### B MP #### [facility] [address] [place] [id number] [place] Creatinine [Mass/Vol] 0.65 mg/dL Normal 0.60-1.20 [facility] Comment on above: Performed By: #### B MP #### [address] Creatinine Clr Calc Pharmacy 42.39 Normal [facility] Comment on above: Result Comment: PERF ORMED BY: [place] [address] PATHOLOGIST [employer] GOSIA MCADAMS M.D. Performed By: #### B MP #### [place] [address] [place] GFR/1.73 sq M.predicted MDRD (S/P/Bld) [Vol rate/Area] mL/min/{1.73_m2} Normal [facility] Comment on above: Performed By: #### B MP #### [address] Glucose [Mass/Vol] 170 mg/dL High 70-100 [facility] Comment on above: Result Comment: [facility] Glucose Reference Range is dependent on time and content of last meal. Glucose of more than 200 mg/dL in a nonstressed, ambulatory subject supports the diagnosis of Diabetes Mellitus. ADA recommended reference range Performed By: #### B MP #### [address] Potassium [Moles/Vol] 3.3 mmol/L Low 3.5-5.1 [facility] Comment on above: Performed By: #### B MP #### [address] Sodium [Moles/Vol] 122 mmol/L Off scale low 136-145 [facility] Comment on above: Result Comment: Crit ical Result Called to and read back by: NOT FIRST at: 04/03/2023 19:17:43 by:[id number] Performed By: #### B MP #### [address] Urea nitrogen [Mass/Vol] 7 mg/dL Normal 7-25 [facility] Comment on above: Performed By: #### B MP #### [place] [address] [place] Anion gap [Moles/Vol] 14.6 mmol/L Normal 6.0-15.0 [facility] Comment on above: Performed By: #### C BC, CMP #### [address] Calcium [Mass/Vol] 8.8 mg/dL Normal 8.6-10.3 [facility] Comment on above: Performed By: #### C BC, CMP #### [place] [address] [place] Chloride [Moles/Vol] 81 mmol/L Low 98-107 [facility] Comment on above: Performed By: #### C BC, CMP #### [place] [address] [place] CO2 [Moles/Vol] 26.8 mmol/L Normal 21.0-31.0 [facility] Comment on above: Performed By: #### C BC, CMP #### [place] [address] [place] Creatinine [Mass/Vol] 0.61 mg/dL Normal 0.60-1.20 [facility] Comment on above: Performed By: #### C BC, CMP #### [place] [address] [place] Creatinine Clr Calc Pharmacy 42.39 Normal [facility] Comment on above: Result Comment: PERF ORMED BY: [place] [address] PATHOLOGIST [employer] GOSIA MCADAMS M.D. Performed By: #### C BC, CMP #### [place] [address] [place] GFR/1.73 sq M.predicted MDRD (S/P/Bld) [Vol rate/Area] mL/min/{1.73_m2} Normal [facility] Comment on above: Performed By: #### C BC, CMP #### [place] [address] [place] Glucose [Mass/Vol] 108 mg/dL High 70-100 [facility] Comment on above: Result Comment: [place] Glucose Reference Range is dependent on time and content of last meal. Glucose of more than 200 mg/dL in a nonstressed, ambulatory subject supports the diagnosis of Diabetes Mellitus. ADA recommended reference range Performed By: #### C BC, CMP #### [facility] [address] Potassium [Moles/Vol] 3.4 mmol/L Low 3.5-5.1 [facility] Comment on above: Performed By: #### C BC, CMP #### [address] Sodium [Moles/Vol] 119 mmol/L Off scale low 136-145 [facility] Comment on above: Result Comment: Crit ical Result Called to and read back by: NOT FIRST TIME CRITICAL at: 04/03/2023 14:56:28 by:[email or web address] Performed By: #### C BC, CMP #### [place] [address] [place] Urea nitrogen [Mass/Vol] 7 mg/dL Normal 7-25 [facility] Comment on above: Performed By: #### C BC, CMP #### [facility] [address] [place] [address] [place] Anion gap [Moles/Vol] 16.6 mmol/L High 6.0-15.0 [facility] Comment on above: Performed By: #### C BC, CMP #### [place] [address] [place] Calcium [Mass/Vol] 9.0 mg/dL Normal 8.6-10.3 [facility] Comment on above: Performed By: #### C BC, CMP #### [facility] [address] [place] [address] [place] Chloride [Moles/Vol] 81 mmol/L Low 98-107 [facility] Comment on above: Performed By: #### C BC, CMP #### [facility] [address] [place] [address] [place] CO2 [Moles/Vol] 25.7 mmol/L Normal 21.0-31.0 [facility] Comment on above: Performed By: #### C BC, CMP #### [address] Creatinine [Mass/Vol] 0.63 mg/dL Normal 0.60-1.20 [facility] Comment on above: Performed By: #### C BC, CMP #### [address] Creatinine Clr Calc Pharmacy 42.39 Normal [facility] Comment on above: Result Comment: PERF ORMED BY: [place] [address] PATHOLOGIST [employer] GOSIA MCADAMS M.D. Performed By: #### C BC, CMP #### [address] Performed By: #### T 4F, BMP #### [address] GFR/1.73 sq M.predicted MDRD (S/P/Bld) [Vol rate/Area] mL/min/{1.73_m2} Normal [facility] Comment on above: Performed By: #### C BC, CMP #### [address] Performed By: #### T 4F, BMP #### [address] Glucose [Mass/Vol] 123 mg/dL High 70-100 [facility] Comment on above: Result Comment: [place] Glucose Reference Range is dependent on time and content of last meal. Glucose of more than 200 mg/dL in a nonstressed, ambulatory subject supports the diagnosis of Diabetes Mellitus. ADA recommended reference range Performed By: #### C BC, CMP #### [address] Potassium [Moles/Vol] 3.3 mmol/L Low 3.5-5.1 [facility] Comment on above: Performed By: #### C BC, CMP #### [address] Sodium [Moles/Vol] 120 mmol/L Off scale low 136-145 [facility] Comment on above: Result Comment: Crit ical Result Called to and read back by: NOT FIRST TIME CRITICAL at: 04/03/2023 13:00:21 by:[email or web address] Performed By: #### C TIFFANIE, CMP #### [facility] [address] Urea nitrogen [Mass/Vol] 7 mg/dL Normal 7-25 [facility] Comment on above: Performed By: #### C TIFFANIE, CMP #### [facility] [address] Anion gap [Moles/Vol] 10.9 mmol/L Normal 6.0-15.0 [facility] Comment on above: Performed By: #### T 4F, BMP #### [address] Calcium [Mass/Vol] 8.6 mg/dL Normal 8.6-10.3 [facility] Comment on above: Performed By: #### T 4F, BMP #### [place] [address] [place] CO2 [Moles/Vol] 28.3 mmol/L Normal 21.0-31.0 [facility] Comment on above: Performed By: #### T 4F, BMP #### [address] Creatinine [Mass/Vol] 0.60 mg/dL Normal 0.60-1.20 [facility] Comment on above: Performed By: #### T 4F, BMP #### [place] [address] [place] Glucose [Mass/Vol] 121 mg/dL High 70-100 [facility] Comment on above: Result Comment: [place] om Glucose Reference Range is dependent on time and content of last meal. Glucose of more than 200 mg/dL in a nonstressed, ambulatory subject supports the diagnosis of Diabetes Mellitus. ADA recommended reference range Performed By: #### T 4F, BMP #### [place] [address] [place] Potassium [Moles/Vol] 3.2 mmol/L Low 3.5-5.1 [facility] Comment on above: Performed By: #### T 4F, BMP #### [address] Sodium [Moles/Vol] 118 mmol/L Off scale low 136-145 [facility] Comment on above: Result Comment: Crit ical Result Called to and read back by: NOT FIRST TIME at: 04/03/2023 08:56:25 by:[id number] Performed By: #### T 4F, BMP #### [address] Urea nitrogen [Mass/Vol] 5 mg/dL Low 7-25 [facility] Comment on above: Performed By: #### T 4F, BMP #### [address] Anion gap [Moles/Vol] 14.1 mmol/L Normal 6.0-15.0 [facility] Comment on above: Performed By: #### B MP #### [address] Calcium [Mass/Vol] 8.3 mg/dL Low 8.6-10.3 [facility] Comment on above: Performed By: #### B MP #### [address] Chloride [Moles/Vol] 82 mmol/L Low 98-107 [facility] Comment on above: Performed By: #### T 4F, BMP #### [address] Performed By: #### B MP #### [address] CO2 [Moles/Vol] 25.8 mmol/L Normal 21.0-31.0 [facility] Comment on above: Performed By: #### B MP #### [address] Creatinine [Mass/Vol] 0.59 mg/dL Low 0.60-1.20 [facility] Comment on above: Performed By: #### B MP #### [address] Creatinine Clr Calc Pharmacy 42.94 Normal [facility] Comment on above: Result Comment: PERF ORMED BY: [place] [address] PATHOLOGIST [employer] GOSIA MCADAMS M.D. Performed By: #### B MP #### [address] GFR/1.73 sq M.predicted MDRD (S/P/Bld) [Vol rate/Area] mL/min/{1.73_m2} Normal [facility] Comment on above: Performed By: #### B MP #### [address] Glucose [Mass/Vol] 102 mg/dL High 70-100 [facility] Comment on above: Result Comment: [facility] Glucose Reference Range is dependent on time and content of last meal. Glucose of more than 200 mg/dL in a nonstressed, ambulatory subject supports the diagnosis of Diabetes Mellitus. ADA recommended reference range Performed By: #### B MP #### [place] [address] [place] Potassium [Moles/Vol] 2.9 mmol/L Off scale low 3.5-5.1 [facility] Comment on above: Result Comment: Crit ical Result Called to and read back by: TADEO BEAUCHAMP at: 04/03/2023 03:37:07 by:[id number] Performed By: #### B MP #### [place] [address] [place] Sodium [Moles/Vol] 119 mmol/L Off scale low 136-145 [facility] Comment on above: Result Comment: Crit ical Result Called to and read back by: TADEO BEAUCHAMP at: 04/03/2023 03:37:07 by:[id number] Performed By: #### B MP #### [place] [address] [place] Urea nitrogen [Mass/Vol] 6 mg/dL Low 7-25 [facility] Comment on above: Performed By: #### B MP #### [facility] [address] [place] [address] [place] Basophils Auto (Bld) [#/Vol] Ordered By: Natividad Gregory on 04-03-2023 Basophils (Bld) [#/Vol] 0.1 10*3/uL 0.0-0.2 [facility] Basophils/100 WBC Auto (Bld) Ordered By: Natividad Gregory on 04-03-2023 Basophils/100 WBC (Bld) 0.6 % . [facility] Bilirubin.total [Mass/volume ] in Serum or PlasmaOrdered By: Natividad Gregory on 04-03-2023 Bilirubin [Mass/Vol] 0.7 mg/dL 0.3-1.0 [facility] Complete Blood Count Auto Di ffon 04-03-2023 Basophils (Bld) [#/Vol] 0.1 10*3/uL Normal 0.0-0.2 [facility] Comment on above: Result Comment: PERF ORMED BY: [place] [address] PATHOLOGIST [employer] GOSIA MCADAMS M.D. Performed By: #### C BC, CMP #### [address] Basophils/100 WBC (Bld) 0.6 % Normal . T babatunde [facility] Comment on above: Performed By: #### C BC, CMP #### [place] [address] [place] Eosinophils (Bld) [#/Vol] 0.1 10*3/uL Normal 0.0-0.45 [facility] Comment on above: Performed By: #### C BC, CMP #### [address] Eosinophils/100 WBC (Bld) 0.8 % Normal . [facility] Comment on above: Performed By: #### C BC, CMP #### [address] Erythrocyte distribution width (RBC) [Ratio] 13.9 % Normal 11.9-15.3 [facility] Comment on above: Performed By: #### C BC, CMP #### [address] Hematocrit (Bld) [Volume fraction] 35.5 % Normal 34.0-46.4 [facility] Comment on above: Performed By: #### C BC, CMP #### [address] Hemoglobin (Bld) [Mass/Vol] 12.7 g/dL Normal 11.8-15.4 [facility] Comment on above: Performed By: #### C BC, CMP #### [address] Lymphocytes (Bld) [#/Vol] 1.7 10*3/uL Normal 1.00-4.8 [facility] Comment on above: Performed By: #### C BC, CMP #### [address] Lymphocytes/100 WBC (Bld) 15.6 % Normal . [facility] Comment on above: Performed By: #### C BC, CMP #### [address] MCH (RBC) [Entitic mass] 31.6 pg Normal 24.7-34.3 [facility] Comment on above: Performed By: #### C BC, CMP #### [address] MCV (RBC) [Entitic vol] 88.3 fL Normal 80-100 T [facility] Comment on above: Performed By: #### C BC, CMP #### [address] Mean Corpuscular HGB Conc 35.8 g/dL High 32.0-35.0 [facility] Comment on above: Performed By: #### C BC, CMP #### [address] Monocytes (Bld) [#/Vol] 1.1 10*3/uL High 0.0-0.8 [facility] Comment on above: Performed By: #### C BC, CMP #### [facility] [address] [place] [address] [place] Monocytes/100 WBC (Bld) 10.3 % Normal . T [facility] Comment on above: Performed By: #### C BC, CMP #### [facility] [address] [place] [address] [place] Neutrophils (Bld) [#/Vol] 7.7 10*3/uL Normal 1.8-7.7 [facility] Comment on above: Performed By: #### C BC, CMP #### [facility] [address] [place] [address] [place] Neutrophils/100 WBC (Bld) 72.7 % Normal . [facility] Comment on above: Performed By: #### C BC, CMP #### [facility] [address] [place] [address] [place] NRBC% 0.3 /100{WBC} Normal 0-0.5 [facility] Comment on above: Performed By: #### C BC, CMP #### [facility] [address] [place] [address] [place] Platelet mean volume (Bld) [Entitic vol] 7.0 fL Normal 6.3-10.7 [facility] Comment on above: Performed By: #### C BC, CMP #### [facility] [address] [place] [address] [place] Platelets (Bld) [#/Vol] 424 10*3/uL Normal 150-450 [facility] Comment on above: Performed By: #### C BC, CMP #### [facility] [address] [place] [address] [place] RBC (Bld) [#/Vol] 4.02 10*6/uL Normal 3.60-5.00 [facility] Comment on above: Performed By: #### C BC, CMP #### [facility] [address] [place] [address] [place] WBC (Bld) [#/Vol] 10.6 10*3/uL Normal 3.8-11.6 [facility] Comment on above: Performed By: #### C BC, CMP #### [address] Comprehensive Metabolic Pane carlos 04-03-2023 Albumin [Mass/Vol] 3.7 g/dL Normal 3.5-5.7 [facility] Comment on above: Performed By: #### C BC, CMP #### [address] Albumin/Globulin [Mass ratio] 1.5 {ratio} Normal [facility] Comment on above: Performed By: #### C BC, CMP #### [address] ALP [Catalytic activity/Vol] 56 U/L Normal 34-104 [facility] Comment on above: Performed By: #### C BC, CMP #### [address] ALT [Catalytic activity/Vol] 14 U/L Normal 7-52 [facility] Comment on above: Performed By: #### C BC, CMP #### [address] Anion gap [Moles/Vol] 12.9 mmol/L Normal 6.0-15.0 [facility] Comment on above: Performed By: #### C BC, CMP #### [address] AST [Catalytic activity/Vol] 20 U/L Normal 13-39 [facility] Comment on above: Performed By: #### C BC, CMP #### [address] Bilirubin [Mass/Vol] 0.7 mg/dL Normal 0.3-1.0 [facility] Comment on above: Performed By: #### C BC, CMP #### [address] Calcium [Mass/Vol] 8.5 mg/dL Low 8.6-10.3 [facility] Comment on above: Performed By: #### C BC, CMP #### [address] Chloride [Moles/Vol] 81 mmol/L Low 98-107 [facility] Comment on above: Performed By: #### C BC, CMP #### [address] CO2 [Moles/Vol] 26.1 mmol/L Normal 21.0-31.0 [facility] Comment on above: Performed By: #### C BC, CMP #### [address] Creatinine [Mass/Vol] 0.58 mg/dL Low 0.60-1.20 [facility] Comment on above: Performed By: #### C BC, CMP #### [address] Creatinine Clr Calc Pharmacy 42.94 Normal [facility] Comment on above: Result Comment: PERF ORMED BY: [place] [address] PATHOLOGIST [employer] GOSIA MCADAMS M.D. Performed By: #### C BC, CMP #### [address] GFR/1.73 sq M.predicted MDRD (S/P/Bld) [Vol rate/Area] mL/min/{1.73_m2} Normal [facility] Comment on above: Performed By: #### C BC, CMP #### [address] Globulin (S) [Mass/Vol] 2.4 g/dL Normal [facility] Comment on above: Performed By: #### C BC, CMP #### [address] Glucose [Mass/Vol] 136 mg/dL High 70-100 [facility] Comment on above: Result Comment: [place] Glucose Reference Range is dependent on time and content of last meal. Glucose of more than 200 mg/dL in a nonstressed, ambulatory subject supports the diagnosis of Diabetes Mellitus. ADA recommended reference range Performed By: #### C BC, CMP #### [facility] [address] Potassium [Moles/Vol] 3.0 mmol/L Low 3.5-5.1 [facility] Comment on above: Performed By: #### C BC, CMP #### [address] Protein [Mass/Vol] 6.1 g/dL Low 6.4-8.9 [facility] Comment on above: Performed By: #### C BC, CMP #### [address] Sodium [Moles/Vol] 117 mmol/L Off scale low 136-145 [facility] Comment on above: Result Comment: Crit ical Result Called to and read back by: EDMAR PATEL at: 04/03/2023 06:09:08 by:[id number] Performed By: #### C BC, CMP #### [address] Urea nitrogen [Mass/Vol] 6 mg/dL Low 7-25 [facility] Comment on above: Performed By: #### C BC, CMP #### [address] Eosinophils Auto (Bld) [#/Vo l]Ordered By: Natividad Gregory on 04-03-2023 Eosinophils (Bld) [#/Vol] 0.1 10*3/uL 0.0-0.45 [facility] Eosinophils/100 WBC Auto (Bl d)Ordered By: Natividad Gregory on 04-03-2023 Eosinophils/100 WBC (Bld) 0.8 % . [facility] Erythrocyte distribution wid th Auto (RBC) [Ratio]Ordered By: Natividad Gregory on 04-03-2023 Erythrocyte distribution width (RBC) [Ratio] 13.9 % 11.9-15.3 [facility] Globulin Calc (S) [Mass/Vol] Ordered By: Natividad Gregory on 04-03-2023 Globulin (S) [Mass/Vol] 2.4 g/dL [facility] Hematocrit Auto (Bld) [Volum e fraction]Ordered By: Natividad Gregory on 04-03-2023 Hematocrit (Bld) [Volume fraction] 35.5 % 34.0-46.4 [facility] Hemoglobin [Mass/volume] in BloodOrdered By: Natividad Gregory on 04-03-2023 Hemoglobin (Bld) [Mass/Vol] 12.7 g/dL 11.8-15.4 [facility] Leukocytes [#/volume] correc sofyia for nucleated erythrocytes in Blood by Automated counOrdered By: Natviidad Gregory on 04-03-2023 WBC corrected for nucl RBC Auto (Bld) [#/Vol] 10.6 10*3/uL 3.8-11.6 [facility] Lymphocytes Auto (Bld) [#/Vo l]Ordered By: Natividad Gregory on 04-03-2023 Lymphocytes (Bld) [#/Vol] 1.7 10*3/uL 1.00-4.8 [facility] Lymphocytes/100 WBC Auto (Bl d)Ordered By: Natividad Gregory on 04-03-2023 Lymphocytes/100 WBC (Bld) 15.6 % . [facility] MCH Auto (RBC) [Entitic mass ]Ordered By: Natividad Gregory on 04-03-2023 MCH (RBC) [Entitic mass] 31.6 pg 24.7-34.3 [facility] MCHC Auto (RBC) [Mass/Vol]Or dered By: Natividad Gregory on 04-03-2023 MCHC (RBC) [Mass/Vol] 35.8 g/dL 32.0-35.0 Fir [facility] MCV Auto (RBC) [Entitic vol] Ordered By: Natividad Gregory on 04-03-2023 MCV (RBC) [Entitic vol] 88.3 fL 80-100 [facility] Monocytes Auto (Bld) [#/Vol] Ordered By: Natividad Gregory on 04-03-2023 Monocytes (Bld) [#/Vol] 1.1 10*3/uL 0.0-0.8 [facility] Monocytes/100 WBC Auto (Bld) Ordered By: Natividad Monsalvee on 04-03-2023 Monocytes/100 WBC (Bld) 10.3 % . [facility] Neutrophils Auto (Bld) [#/Vo l]Ordered By: Natividad Monsalvee on 04-03-2023 Neutrophils (Bld) [#/Vol] 7.7 10*3/uL 1.8-7.7 [facility] Neutrophils/100 WBC Auto (Bl d)Ordered By: Natividad Monsalvee on 04-03-2023 Neutrophils/100 WBC (Bld) 72.7 % . [facility] Nucleated erythrocytes [Pres ence] in Blood by Automated countOrdered By: Natividad Gregory on 04-03-2023 Nucleated RBC Auto Ql (Bld) 0.3 /100{WBC} 0-0.5 [facility] Platelet mean volume Auto (B ld) [Entitic vol]Ordered By: Natividad Gregory on 04-03-2023 Platelet mean volume (Bld) [Entitic vol] 7.0 fL 6.3-10.7 [facility] Platelets Auto (Bld) [#/Vol] Ordered By: Natividad Monsalvee on 04-03-2023 Platelets (Bld) [#/Vol] 424 10*3/uL 150-450 [facility] Protein [Mass/volume] in Ser um or PlasmaOrdered By: Natividad Monsalvee on 04-03-2023 Protein [Mass/Vol] 6.1 g/dL 6.4-8.9 [facility] RBC Auto (Bld) [#/Vol]Ordere d By: Natividad Monsalvee on 04-03-2023 RBC (Bld) [#/Vol] 4.02 10*6/uL 3.60-5.00 [facility] Serum or plasma albumin/glob ulin mass ratioOrdered By: Natividad Monsalvee on 04-03-2023 Albumin/Globulin [Mass ratio] 1.5 {ratio} [facility] Sodiumon 04-03-2023 Sodium [Moles/Vol] 124 mmol/L Off scale low 136-145 [facility] Comment on above: Result Comment: Crit ical Result Called to and read back by: SAMMIE GOULD at: 04/03/2023 22:42:55 by:[email or web address] PERFORMED BY: [place] [address] PATHOLOGIST [employer] GOSIA MCADAMS M.D. Performed By: #### N A #### [address] WBC Auto (Bld) [#/Vol]Ordere d By: Natividad Gregory on 04-03-2023 WBC (Bld) [#/Vol] 10.6 10*3/uL 3.8-11.6 [facility] Basic Metabolic Panelon 03-23 Anion gap [Moles/Vol] 12.8 mmol/L Normal 6.0-15.0 [facility] Comment on above: Performed By: #### T 4F, BMP #### [address] Calcium [Mass/Vol] 8.8 mg/dL Normal 8.6-10.3 [facility] Comment on above: Performed By: #### T 4F, BMP #### [address] Chloride [Moles/Vol] 81 mmol/L Low 98-107 [facility] Comment on above: Performed By: #### T 4F, BMP #### [address] CO2 [Moles/Vol] 26.3 mmol/L Normal 21.0-31.0 [facility] Comment on above: Performed By: #### T 4F, BMP #### [address] Creatinine [Mass/Vol] 0.59 mg/dL Low 0.60-1.20 [facility] Comment on above: Performed By: #### T 4F, BMP #### [place] [address] [place] Creatinine Clr Calc Pharmacy 42.94 Normal [facility] Comment on above: Performed By: #### T 4F, BMP #### [facility] [address] [place] [address] [place] GFR/1.73 sq M.predicted MDRD (S/P/Bld) [Vol rate/Area] mL/min/{1.73_m2} Normal [facility] Comment on above: Performed By: #### T 4F, BMP #### [place] [address] [place] Glucose [Mass/Vol] 122 mg/dL High 70-100 [facility] Comment on above: Result Comment: [facility] Glucose Reference Range is dependent on time and content of last meal. Glucose of more than 200 mg/dL in a nonstressed, ambulatory subject supports the diagnosis of Diabetes Mellitus. ADA recommended reference range Performed By: #### T 4F, BMP #### [address] Potassium [Moles/Vol] 3.1 mmol/L Low 3.5-5.1 [facility] Comment on above: Performed By: #### T 4F, BMP #### [place] [address] [place] Sodium [Moles/Vol] 117 mmol/L Off scale low 136-145 [facility] Comment on above: Result Comment: Crit ical Result Called to and read back by: GERMAIN BEAUCHMAP at: 04/02/2023 21:52:44 by:[id number] Performed By: #### T 4F, BMP #### [place] [address] [place] Urea nitrogen [Mass/Vol] 7 mg/dL Normal 7-25 [facility] Comment on above: Performed By: #### T 4F, BMP #### [place] [id number] [place] Magnesiumon 04-02-2023 Magnesium [Mass/Vol] 1.9 mg/dL Normal 1.9-2.7 [facility] Comment on above: Performed By: #### T 4F, BMP #### [place] [id number] [place] Magnesium [Mass/volume] in S willa or PlasmaOrdered By: Natividad Gregory on 04-02-2023 Magnesium [Mass/Vol] 1.9 mg/dL 1.9-2.7 [facility] No Panel InformationOrdered By: Natividad Gregory on 04-02-2023 Urine Osmolality 298 mosm 250-900 [facility] Osmolality, Urineon 04-02-19 24 Osmolality, Urine 298 mosm Normal 250-900 [facility] Comment on above: Result Comment: PERF ORMED BY: [place] [address] PATHOLOGIST [employer] GOSIA MCADAMS M.D. Performed By: #### U ROSMO, KERRY #### [facility] [address] [place] [address] Sodium [Moles/volume] in Uri neOrdered By: Natividad Gregory on 04-02-2023 Sodium (U) [Moles/Vol] 79 mmol/L [facility] Comment on above: No reference range e stablished Sodium, Urine (Random)on Sodium (U) [Moles/Vol] 79 mmol/L Normal [facility] Comment on above: Result Comment: No r eference range established PERFORMED BY: [place] [address] PATHOLOGIST [employer] GOSIA MCADAMS M.D. Performed By: #### U ROSMO, KERRY #### [facility] [address] [place] [address] Thyroid Stimulating Hormoneo n 04-02-2023 TSH Qn 5.76 m[IU]/L High 0.45-5.33 [facility] Comment on above: Result Comment: PERF ORMED BY: [place] [address] PATHOLOGIST [employer] GOSIA MCADAMS M.D. Performed By: #### T 4F, BMP #### [facility] [address] [place] [address] Thyrotropin [Units/volume] i n Serum or PlasmaOrdered By: Natividad Gregory on 04-02-2023 TSH Qn 5.76 m[IU]/L 0.45-5.33 [facility] Office Visiton 01-11-2023 Follow-up visit [id number] Hiram Madrid Crystal 1935 F Date Provider Department Center 01/11/2023 Kalee-LESLY ALANIZ [facility] Family History Problem Relation Age of Onset Hypertension Mother Lupus Mother Coronary artery disease Mother Heart attack Mother Hypertension Father Aneurysm Father Coronary artery disease Father Hypertension Sister Lupus Sister Family Status - Relation Status Age at Mother Father Sister Level of Service:96536 PA OFFICE/OUTPATIENT ESTABLISHED MOD MDM 30-39 MIN Normal [facility] Lab Reportson 12-23-2022 Lab Reports [id number] 0TIFF Normal [facility] Urology Office/Clinic Noteon 12-23-2022 Urology [...] Pt presented to ER due to syncope. [place] was found incidentally on CT. CT AP [...] this plan. Follow-up With When Contact Information MIKAYLA WEISS PA-C, URL [address] [place] [address] [phone] Additional Instructions: 6 mos w/ renal fxn [...] Tab losartan 100 mg Tab Potassium Chloride (Tlj-Olsn-Bac 10), Oral, BID pravastatin 80 mg Tab [...] virus vaccine, (more content not included)... Normal [facility] Comment on above: Result Comment: Elec tronically Signed By: MIKAYLA WEISS PA-C\.br\Date and Time Signed: 12/23/22 12:13 EDT\.br\Electronically Co-Signed By: Jacquie Ganbr\Date and Time Co-Signed: 11/02/23 12:27 EDT Ambulatory Visit Summaryon 1 02-21-2022 Ambulatory Visit Summary HIRAM MADRID :1935 Visit Date:12/22/2022 Ambulatory Visit Instructions Your Diagnosis Hydronephrosis, right Ureteral stenosis Tests Performed Urnls Dip Stick Auto w/o Microscopy POC 33753 US Renal -- Results Pending -- Please [...] 100 mg Tab) potassium chloride (Potassium Chloride (Saf-Qbao-Kob 10)) pravastatin (pravastatin 80 mg Tab) Procedures Performed Appendectomy, Bilateral salpingo-oophorectomy, Cataract extraction and insertion of intraocular lens, Cholecystectomy, Colonoscopy, Procedure on back, Tonsillectomy. Discharge Vitals Blood Pressure 124/84 Height 155 cm Height 61 in Weight 64.8 kg Weight 142.56 lb BMI 26.97 What to do next Scheduled Follow-Up Appointments June. 2023 9:30 AM EDT With: MIKAYLA WEISS PA-C Where: [facility] Patient Educationon 12-23-19 23 Patient Education Urology Hydronephrosis Hydronephrosis is the [...] Follow these instructions at home: ? Take nuwb-rge-ndsysgd and prescription medicines only as told by [...] provider. Document Revised: 05/26/2020 Document Reviewed: 05/26/2020 [employer] Patient Education ? 2022 [employer]. Normal [facility] RAD - Ultrasound Reporton RAD - Ultrasound Report [id number] 0TIFF Normal [facility] Reminderson 12-22-2022 Reminders - From: Jacquie Gan To: ERIN Weiss; Sent: 12/22/2022 12:30:05 EDT Show up: 05/23/2023 12:30:00 EDT Subject: JAC and BUN/Creatinine prior to appt Reminder Message Please Remember to:_have pt schedule JAC prior to appt. Please look for BUN/Cr labs from PCP. If unable to locate recent labs, send pt order to complete this. Normal [facility] Orders Onlyon 10-25-2022 Orders Only [id number] Hiram Madrid 1935 F Date Provider Department Center 10/25/2022 120-LESLY ALANIZ [facility]. Family History Problem Relation Age of Onset Hypertension Mother Lupus Mother Coronary artery disease Mother Heart attack Mother Hypertension Father Aneurysm Father Coronary artery disease Father Hypertension Sister Lupus Sister Family Status - Relation Status Age at Mother Father Sister Normal [facility] 37on 10-14-2022 38 Increase coreg/carvedilol to 25 mg twice a day- you have 12.5 mg tabs now so take 2 twice a day until this bottle is gone- your next refill will be the higher dose of 25 mg bid. Have labs drawn Normal [facility] Office Visiton 10-14-2022 Follow-up visit [id number] Hiram Madrid 1935 F Date Provider Department Center 10/14/2022 LESLY GASPAR [facility]ON[facility] Family History Problem Relation Age of Onset Hypertension Mother Lupus Mother Coronary artery disease Mother Heart attack Mother Hypertension Father Aneurysm Father Coronary artery disease Father Hypertension Sister Lupus Sister Family Status - Relation Status Age at Mother Father Sister Level of Service:03212 PA OFFICE/OUTPATIENT ESTABLISHED MOD MDM 30-39 MIN Normal [facility] Consent for Procedure/Surger yon 09-07-2022 Consent for Procedure/Surgery [id number]#1. 00CD:127 [facility] Ambulatory Visit Summaryon 0 09-06-2022 Ambulatory Visit [...] 100 mg Tab) potassium chloride (Potassium Chloride (Emm-Qdoq-Vza 10)) pravastatin (pravastatin 80 mg Tab) Procedures Performed Appendectomy, Bilateral salpingo-oophorectomy, Cataract extraction and insertion of intraocular lens, Cholecystectomy, Colonoscopy, Procedure on back, Tonsillectomy. Discharge Vitals Height 155 cm Height 61 in Weight 65 kg Weight 143 lb BMI 27.06 What to do next Scheduled Follow-Up Appointments Monday 2:00 PM EDT With: CHRISTY DUMONT, Raymond Mckeon Where: [facility] Natalya Normal [facility] Patient Educationon 09-07-19 Patient Education Urology [...] Follow these instructions at home: ? Take tzso-uas-hfessrn and prescription medicines only as told by [...] provider. Document Revised: 05/26/2020 Document Reviewed: 05/26/2020 [employer] Patient Education ? 2022 [employer] [facility] Urology Office/Clinic Noteon 09-06-2022 Urology Office/Clinic Note [...] With When Contact Information CHRISTY DUMONT, Raymond R, URL [facility] [address] , [place] [address]- Additional Instructions: 3 mos no labs Patient [...] Tab losartan 100 mg Tab Potassium Chloride (Rle-Bixz-Jpv 10), Oral, BID pravastatin 80 mg Tab [...] 12/06/2016 Rec (more content not included)... Normal [facility] Comment on above: Result Comment: Elec tronically Signed By: Raymond HARRISON MD\.br\Date and Time Signed: 09/06/22 13:02 EDT\.br\Electronically Co-Signed By: Josefa Stewart.br\Date and Time Co-Signed: 09/06/22 13:01 EDT Operative Reporton Operative Report [id number] CD:127 Normal [facility] RAD - MISCon 08-12-2022 RAD [facility] [id number] CD:127 Normal [facility] Ambulatory Visit Summaryon 0 08-10-2022 Ambulatory Visit Summary HIRAM MADRID :1935 Visit Date:08/10/2022 Ambulatory Visit Instructions Your Diagnosis Hydronephrosis, right Aspirin long-term use Tests Performed Urnls Dip Stick Auto w/o Microscopy POC 15133 Your Care Team Attending Physician - CHRISTY DUMONT, Raymond Mckeon Primary Care Physician - Addy Daniels MD This Is Your Medications List Contact prescribing physician if questions or concerns amlodipine (amLODIPine 10 mg Tab) aspirin (aspirin 81 mg oral capsule) carvedilol hydrochlorothiazide levothyroxine (levothyroxine 88 mcg (0.088 mg) Tab) losartan (losartan 100 mg Tab) potassium chloride (Potassium Chloride (Ndx-Srmv-Hkj 10)) pravastatin (pravastatin 80 mg Tab) Procedures [...] Follow Up with CHRISTY DUMONT, Raymond Mckeon, GINO When: Where: [facility] [address] [place] [address]- Medications What How Much When Instructions Unchanged [...] or concerns Unchanged potassium chloride (Potassium Chloride (Zwb-Tatv-Bhg 10)) 2 times a day Contact prescribing physician if questions or concerns Unchanged pravastatin (pravastatin 80 mg Tab) 30 EA, TAKE 1 TABLET BY MOUTH ONCE DAILY Contact prescribing physician if questions or concerns Test Results Urnls Dip Stick Auto w/o Microscopy POC 17495 (08/10/2022) Bilirubin Urine Dipstick - Negative Blood Urine Dipstick - Negative Glucose Urine Dipstick - Negative Ketones Urine Dipstick - Negative Leukocytes Urine Dipstick - Trace Nitrite Urine Dipstick - Negative Protein Urine Dipstick - Negative Specific [place] Urine Dipstick - 1.025 Urine Appearance Urine [...] what caus (more content not included)... Normal [facility] Ambulatory Visit Summary HIRAM MADRID :1935 Visit Date:08/10/2022 Ambulatory Visit Instructions Your Diagnosis Hydronephrosis, right Aspirin long-term use Tests Performed Urnls Dip Stick Auto w/o Microscopy POC 82046 Your Care Team Attending Physician - CHRISTY DUMONT, Raymond Mckeon Primary Care Physician - Addy Daniels MD This Is Your Medications List Contact prescribing physician if questions or concerns amlodipine (amLODIPine 10 mg Tab) aspirin (aspirin 81 mg oral capsule) carvedilol hydrochlorothiazide levothyroxine (levothyroxine 88 mcg (0.088 mg) Tab) losartan (losartan 100 mg Tab) potassium chloride (Potassium Chloride (Pyh-Xpwj-Slb 10)) pravastatin (pravastatin 80 mg Tab) Procedures [...] Follow Up with CHRISTY DUMONT, Raymond Mckeon, GINO When: Where: [facility] [address] , [place] [address]- Medications What How Much When Instructions Unchanged [...] or concerns Unchanged potassium chloride (Potassium Chloride (Zoa-Peyz-Oej 10)) 2 times a day Contact prescribing physician if questions or concerns Unchanged pravastatin (pravastatin 80 mg Tab) 30 EA, TAKE 1 TABLET BY MOUTH ONCE DAILY Contact prescribing physician if questions or concerns Test Results Urnls Dip Stick Auto w/o Microscopy POC 95905 (08/10/2022) Bilirubin Urine Dipstick - Negative Blood Urine Dipstick - Negative Glucose Urine Dipstick - Negative Ketones Urine Dipstick - Negative Leukocytes Urine Dipstick - Trace Nitrite Urine Dipstick - Negative Protein Urine Dipstick - Negative Specific [place] Urine Dipstick - 1.025 Urine Appearance Urine [...] what caus (more content not included)... Normal [facility] Consent for Procedure/Surger yon 08-10-2022 Consent for Procedure/Surgery [id number] CD:127 Normal [facility] Formson 08-10-2022 Forms [id number] CD:127 Normal [facility] Patient Educationon 08-11-19 23 Patient Education Urology Hydronephrosis Hydronephrosis is the [...] Follow these instructions at home: ? Take maix-pfi-xjhveja and prescription medicines only as told by [...] provider. Document Revised: 05/26/2020 Document Reviewed: 05/26/2020 [employer] Patient Education ? 2022 [employer] [facility] Urology Office/Clinic Noteon 08-10-2022 Urology Office/Clinic Note Chief Complaint Kidney stones HPI Staff New Pt follow up to [facility] on 08/05/22 due [...] yo female new pt following up to [facility] ER visit on [...] General anesthesia. 2. Aspirin long-term use (Z79.82: shelter (current) use of aspirin) No other BTs. Follow-up With When Contact Information CHRISTY DUMONT, Raymond Mckeon, [facility] [address], [place] [address]- Additional Instructions: schedule R URS, possible laser litho/basket extraction, stent placement Patient Education Hydronephrosis I, Josefa Stewart, personally scribed for Dr. Harrison on 08/10/2022 09:37:50. . Documentation recorded by the scribeJosefa, accurately reflects the services(s) I performed and decisions made by me. Authenticated by Dr. Harrison on 08/10/2022 09:39:43. Problem List/Past Medical History Ongoing Arthritis Aspirin long-term use Atrial fibrillation Deafness Hydronephrosis, right Hyperlipidemia Hypertension Kidney stone Neuropathy Syncope Thyroid disease Historical No qualifyin (more content not included)... Normal [facility] Comment on above: Result Comment: Elec tronically Signed By: Raymond HARRISON MD\.br\Date and Time Signed: 08/10/22 09:39 EDT\.br\Electronically Co-Signed By: Josefa Stewart\.br\Date and Time Co-Signed: 08/10/22 09:38 EDT XR KUBon 08-09-2022 XR KUB [facility] [address] [address] XRay Report Signed Patient: Hiram Madrid MR#: [id number] : 1935 Acct:[id number] Age/Sex: 86 / F ADM Date: 08/09/22 Loc: XD Room: Type: [facility] Attending Dr: aRymond Harrison MD Copies to: Raymond Harrison MD [...] Lopez Jr., D.O.08/09/2022 3:58 PM Dictation Location: [place] [address] Transcribed By: [facility] 08/09/22 1558 Dictated By: Kameron Lopez Jr, DO 08/09/22 1555 Signed By: 08/09/22 1558 Normal [facility] CT abdomen pelvis wo conon 0 08-06-2022 CT abdomen pelvis wo con [facility] [place] [address] CT Scan Report Signed Patient: Hiram Madrid MR#: [id number] : 1935 Acct:[id number] Age/Sex: 86 / F ADM Date: 08/05/22 Loc: ER Room: Type: [facility] ER Attending Dr: Copies to: [...] Faye Wyman M.D.08/06/2022 8:43 AM Dictation Location: [place] [address] Transcribed By: [facility] 08/06/22 0843 Dictated By: Faye Wyman MD 08/06/22 0830 Signed By: 08/06/22 0843 Normal [facility] Alanine aminotransferase [En zymatic activity/volume] in Serum or PlasmaOrdered By: Camacho Ladd on 08-05-2022 ALT [Catalytic activity/Vol] 16 U/L 7-52 [facility] Albumin [Mass/volume] in Ser um or Plasma by Bromocresol green (BCG) dye binding methoOrdered By: Camacho Ladd on 08-05-2022 Albumin BCG dye [Mass/Vol] 4.4 g/dL 3.5-5.7 [facility] Alkaline phosphatase [Enzyma tic activity/volume] in Serum or PlasmaOrdered By: Camacho Ladd on 08-05-2022 ALP [Catalytic activity/Vol] 61 U/L 34-104 [facility] Aspartate aminotransferase [ Enzymatic activity/volume] in Serum or PlasmaOrdered By: Camacho Ladd on 08-05-2022 AST [Catalytic activity/Vol] 21 U/L 13-39 [facility] Automated erythrocytes count in urine sediment (number/area)Ordered By: Camacho Ladd on 08-05-2022 RBC Auto (Urine sed) [#/Area] 0-1 [HPF] 0-4 [facility] Automated leukocytes count i n urine sediment (number/area)Ordered By: Camacho Ladd on 08-05-2022 WBC Auto (Urine sed) [#/Area] 1-2 [HPF] 0-4 [facility] Basic Metabolic Panelon 07-21 Anion gap [Moles/Vol] 17.8 mmol/L High 6.0-15.0 [facility] Comment on above: Performed By: #### T 4F, BMP #### [address] Calcium [Mass/Vol] 9.7 mg/dL Normal 8.6-10.3 [facility] Comment on above: Performed By: #### T 4F, BMP #### [address] Chloride [Moles/Vol] 87 mmol/L Low 98-107 [facility] Comment on above: Performed By: #### T 4F, BMP #### [address] CO2 [Moles/Vol] 23.2 mmol/L Normal 21.0-31.0 [facility] Comment on above: Performed By: #### T 4F, BMP #### [address] Creatinine [Mass/Vol] 1.03 mg/dL Normal 0.60-1.20 [facility] Comment on above: Performed By: #### T 4F, BMP #### [place] [address] [place] Creatinine Clr Calc Pharmacy 35.13 Normal [facility] Comment on above: Performed By: #### T 4F, BMP #### [place] [address] [place] GFR/1.73 sq M.predicted MDRD (S/P/Bld) [Vol rate/Area] 53.284 mL/min/{1.73_m2} Normal [facility] Comment on above: Performed By: #### T 4F, BMP #### [place] [address] [place] Glucose [Mass/Vol] 156 mg/dL High 70-100 [facility] Comment on above: Result Comment: [place] Glucose Reference Range is dependent on time and content of last meal. Glucose of more than 200 mg/dL in a nonstressed, ambulatory subject supports the diagnosis of Diabetes Mellitus. ADA recommended reference range Performed By: #### T 4F, BMP #### [facility] [address] Potassium [Moles/Vol] 3.0 mmol/L Low 3.5-5.1 [facility] Comment on above: Performed By: #### T 4F, BMP #### [facility] [address] Sodium [Moles/Vol] 125 mmol/L Low 136-145 [facility] Comment on above: Performed By: #### T 4F, BMP #### [facility] [address] Urea nitrogen [Mass/Vol] 12 mg/dL Normal 7-25 [facility] Comment on above: Performed By: #### T 4F, BMP #### [facility] [address] Basophils Auto (Bld) [#/Vol] Ordered By: Camacho Ladd on 08-05-2022 Basophils (Bld) [#/Vol] 0.1 10*3/uL 0.0-0.2 [facility] Basophils/100 WBC Auto (Bld) Ordered By: Camacho Ladd on 08-05-2022 Basophils/100 WBC (Bld) 0.4 % . [facility] Bilirubin Test strip Ql (U)O rdered By: Camacho Ladd on 08-05-2022 Bilirubin Ql (U) Negative Negative [facility] Bilirubin.direct [Mass/volum e] in Serum or PlasmaOrdered By: Camacho Ladd on 08-05-2022 Bilirubin.direct [Mass/Vol] 0.10 mg/dL 0.03-0.18 [facility] Bilirubin.total [Mass/volume ] in Serum or PlasmaOrdered By: Camacho Ladd on 08-05-2022 Bilirubin [Mass/Vol] 0.7 mg/dL 0.3-1.0 [facility] Calcium [Mass/volume] in Ser um or PlasmaOrdered By: Camacho Ladd on 08-05-2022 Calcium [Mass/Vol] 9.7 mg/dL 8.6-10.3 [facility] Carbon dioxide, total [Moles /volume] in Serum or PlasmaOrdered By: Camacho Ladd on 08-05-2022 CO2 [Moles/Vol] 23.2 mmol/L 21.0-31.0 [facility] Chloride [Moles/volume] in S willa or PlasmaOrdered By: Camacho Ladd on 08-05-2022 Chloride [Moles/Vol] 87 mmol/L 98-107 [facility] Color Auto (U)Ordered By: Ender Ladd on 08-05-2022 Color (U) Yellow Yellow [facility] Complete Blood Count Auto Di ffon 08-05-2022 Basophils (Bld) [#/Vol] 0.1 10*3/uL Normal 0.0-0.2 [facility] Comment on above: Result Comment: PERF ORMED BY: [place] [address] PATHOLOGIST [employer] GOSIA MCADAMS M.D. Performed By: #### T 4F, BMP #### [address] Basophils/100 WBC (Bld) 0.4 % Normal . Renato fine [facility] Comment on above: Performed By: #### T 4F, BMP #### [place] [address] [place] Eosinophils (Bld) [#/Vol] 0.1 10*3/uL Normal 0.0-0.45 [facility] Comment on above: Performed By: #### T 4F, BMP #### [place] [address] [place] Eosinophils/100 WBC (Bld) 0.6 % Normal . [facility] Comment on above: Performed By: #### T 4F, BMP #### [address] [place] [address] [place] Erythrocyte distribution width (RBC) [Ratio] 13.6 % Normal 11.9-15.3 [facility] Comment on above: Performed By: #### T 4F, BMP #### [address] Hematocrit (Bld) [Volume fraction] 37.3 % Normal 34.0-46.4 [facility] Comment on above: Performed By: #### T 4F, BMP #### [address] Hemoglobin (Bld) [Mass/Vol] 13.0 g/dL Normal 11.8-15.4 [facility] Comment on above: Performed By: #### T 4F, BMP #### [address] Lymphocytes (Bld) [#/Vol] 3.1 10*3/uL Normal 1.00-4.8 [facility] Comment on above: Performed By: #### T 4F, BMP #### [address] Lymphocytes/100 WBC (Bld) 21.9 % Normal . [facility] Comment on above: Performed By: #### T 4F, BMP #### [address] MCH (RBC) [Entitic mass] 31.6 pg Normal 24.7-34.3 [facility] Comment on above: Performed By: #### T 4F, BMP #### [address] MCV (RBC) [Entitic vol] 90.4 fL Normal 80-100 T [facility] Comment on above: Performed By: #### T 4F, BMP #### [address] Mean Corpuscular HGB Conc 35.0 g/dL Normal 32.0-35.0 [facility] Comment on above: Performed By: #### T 4F, BMP #### [address] Monocytes (Bld) [#/Vol] 1.4 10*3/uL High 0.0-0.8 [facility] Comment on above: Performed By: #### T 4F, BMP #### [facility] [address] [place] [address] [place] Monocytes/100 WBC (Bld) 20.58 % High 0.00-20.00 [facility] Comment on above: Result Comment: For adults in ED, MDW > 20.0 may be associated with a higher risk of sepsis during the first 12 hrs of hospital admission Performed By: #### T 4F, BMP #### [facility] [address] [place] [address] [place] Monocytes/100 WBC (Bld) 9.6 % Normal . [facility] Comment on above: Performed By: #### T 4F, BMP #### [place] [address] [place] Neutrophils (Bld) [#/Vol] 9.6 10*3/uL High 1.8-7.7 [facility] Comment on above: Performed By: #### T 4F, BMP #### [place] [address] [place] Neutrophils/100 WBC (Bld) 67.5 % Normal . [facility] Comment on above: Performed By: #### T 4F, BMP #### [place] [address] [place] NRBC% 0.1 /100{WBC} Normal 0-0.5 [facility] Comment on above: Performed By: #### T 4F, BMP #### [place] [address] [place] Platelet mean volume (Bld) [Entitic vol] 7.2 fL Normal 6.3-10.7 [facility] Comment on above: Performed By: #### T 4F, BMP #### [place] [address] [place] Platelets (Bld) [#/Vol] 500 10*3/uL High 150-450 [facility] Comment on above: Performed By: #### T 4F, BMP #### [facility] [address] [place] [address] [place] RBC (Bld) [#/Vol] 4.13 10*6/uL Normal 3.60-5.00 [facility] Comment on above: Performed By: #### T 4F, BMP #### [facility] [address] [place] [address] [place] WBC (Bld) [#/Vol] 14.2 10*3/uL High 3.8-11.6 [facility] Comment on above: Performed By: #### T 4F, BMP #### [place] [id number] [place] Creatinine [Mass/volume] in Serum or PlasmaOrdered By: Camacho Ladd on 08-05-2022 Creatinine [Mass/Vol] 1.03 mg/dL 0.60-1.20 [facility] Dipstick and Microscopicon 0 08-05-2022 Appearance (U) Cloudy Critically abnormal Clear [facility] Comment on above: Order Comment: Name Collection Type:: Clean-Voided Midstream Performed By: #### T 4F, BMP #### [place] [address] [place] Bacteria,Urine None Seen Normal None Seen [facility] Comment on above: Order Comment: Name Collection Type:: Clean-Voided Midstream Performed By: #### T 4F, BMP #### [facility] [address] [place] [address] [place] Bilirubin,Urine Negative Normal Negative [facility] Comment on above: Order Comment: Name Collection Type:: Clean-Voided Midstream Performed By: #### T 4F, BMP #### [address] [address] [place] Color (U) Yellow Normal Yellow [facility] Comment on above: Order Comment: Name Collection Type:: Clean-Voided Midstream Performed By: #### T 4F, BMP #### [facility] [address] [place] [address] [place] Glucose Ql (U) Normal Normal Normal [facility] Comment on above: Order Comment: Name Collection Type:: Clean-Voided Midstream Performed By: #### T 4F, BMP #### [place] [address] [place] Hyaline Casts,Urine None Seen Normal 0-8 [facility] Comment on above: Order Comment: Name Collection Type:: Clean-Voided Midstream Result Comment: PERF ORMED BY: [place] [address] PATHOLOGIST [employer] GOSIA MCADAMS M.D. Performed By: #### T 4F, BMP #### [address] Ketones Ql (U) Negative Normal Negative [facility] Comment on above: Order Comment: Name Collection Type:: Clean-Voided Midstream Performed By: #### T 4F, BMP #### [address] Leukocyte esterase Test strip Ql (U) 1+ High Negative [facility] Comment on above: Order Comment: Name Collection Type:: Clean-Voided Midstream Performed By: #### T 4F, BMP #### [place] [address] [place] Nitrite,Urine Negative Normal Negative [facility] Comment on above: Order Comment: Name Collection Type:: Clean-Voided Midstream Performed By: #### T 4F, BMP #### [place] [address] [place] Occult Blood,Urine Negative Normal Negative [facility] Comment on above: Order Comment: Name Collection Type:: Clean-Voided Midstream Result Comment: PERF ORMED BY: [place] [address] PATHOLOGIST [employer] GOSIA MCADAMS M.D. Performed By: #### T 4F, BMP #### [place] [address] [place] pH (U) 7.0 [pH] Normal 5.0-9.0 [facility] Comment on above: Order Comment: Name Collection Type:: Clean-Voided Midstream Performed By: #### T 4F, BMP #### [facility] [address] [place] [address] [place] Protein,Urine Negative Normal Negative [facility] Comment on above: Order Comment: Name Collection Type:: Clean-Voided Midstream Performed By: #### T 4F, BMP #### [facility] [address] [place] [id number] [place] RBC LM.HPF (Urine sed) [#/Area] 0 /[HPF] Normal 0-4 [facility] Comment on above: Order Comment: Name Collection Type:: Clean-Voided Midstream Performed By: #### T 4F, BMP #### [place] [id number] [place] Specificy [place],Urine 1.009 Normal 1.001-1.030 [facility] Comment on above: Order Comment: Name Collection Type:: Clean-Voided Midstream Performed By: #### T 4F, BMP #### [place] [address] [place] Squamous Epithelial Cell,Urine 0-1 Normal 0-2 [facility] Comment on above: Order Comment: Name Collection Type:: Clean-Voided Midstream Performed By: #### T 4F, BMP #### [place] [address] [place] Urobilinogen,Urine Normal Normal Normal [facility] Comment on above: Order Comment: Name Collection Type:: Clean-Voided Midstream Performed By: #### T 4F, BMP #### [place] [id number] [place] WBC,Urine 1-2 Normal 0-4 [facility] Comment on above: Order Comment: Name Collection Type:: Clean-Voided Midstream Performed By: #### T 4F, BMP #### [place] [id number] [place] ECG 12 lead ECGon 08-05-2022 ECG 12 lead ECG [facility] [place] [address] [place] [address] Electrocardiograph Report Signed Patient: Hiram Madrid MR#: [id number] : 1935 Acct:[id number] Age/Sex: 86 / F ADM Date: 08/05/22 Loc: ER Room: Type: [facility] ER Attending Dr: Ordering Provider: [...] branch block Confirmed by Camacho Ladd DO ([id number]) on 08/06/2022 1:49:12 AM Referred By: Electronically Signed By:Camacho Ladd DO Transcribed By: MUS Signed By Camacho Ladd DO 0149 Normal [facility] Eosinophils Auto (Bld) [#/Vo l]Ordered By: Camacho Ladd on 08-05-2022 Eosinophils (Bld) [#/Vol] 0.1 10*3/uL 0.0-0.45 [facility] Eosinophils/100 WBC Auto (Bl d)Ordered By: Camacho Ladd on 08-05-2022 Eosinophils/100 WBC (Bld) 0.6 % . [facility] Erythrocyte distribution wid th Auto (RBC) [Ratio]Ordered By: Camacho Ladd on 08-05-2022 Erythrocyte distribution width (RBC) [Ratio] 13.6 % 11.9-15.3 [facility] Globulin Calc (S) [Mass/Vol] Ordered By: Camacho Ladd on 08-05-2022 Globulin (S) [Mass/Vol] 2.9 g/dL [facility] Glucose [Mass/volume] in Ser um or PlasmaOrdered By: Camacho Ladd on 08-05-2022 Glucose [Mass/Vol] 156 mg/dL 70-100 [facility] Comment on above: ADA recommended refe rence rangeRandom Glucose Reference Range is dependent on time and content of last meal. Glucose of more than 200 mg/dL in a nonstressed, ambulatory subject supports the diagnosis of Diabetes Mellitus. Hematocrit Auto (Bld) [Volum e fraction]Ordered By: Camacho Keyesarthy on 08-05-2022 Hematocrit (Bld) [Volume fraction] 37.3 % 34.0-46.4 [facility] Hemoglobin [Mass/volume] in BloodOrdered By: Camacho Keyesarthy on 08-05-2022 Hemoglobin (Bld) [Mass/Vol] 13.0 g/dL 11.8-15.4 [facility] Hepatic Panelon 08-05-2022 Albumin [Mass/Vol] 4.4 g/dL Normal 3.5-5.7 [facility] Comment on above: Performed By: #### T 4F, BMP #### [address] Albumin/Globulin [Mass ratio] 1.5 {ratio} Normal [facility] Comment on above: Performed By: #### T 4F, BMP #### [address] ALP [Catalytic activity/Vol] 61 U/L Normal 34-104 [facility] Comment on above: Performed By: #### T 4F, BMP #### [address] ALT [Catalytic activity/Vol] 16 U/L Normal 7-52 [facility] Comment on above: Performed By: #### T 4F, BMP #### [address] AST [Catalytic activity/Vol] 21 U/L Normal 13-39 [facility] Comment on above: Performed By: #### T 4F, BMP #### [address] Bilirubin [Mass/Vol] 0.7 mg/dL Normal 0.3-1.0 [facility] Comment on above: Performed By: #### T 4F, BMP #### [place] [address] [place] Bilirubin,Indirect 0.6 mg/dL Normal [facility] Comment on above: Performed By: #### T 4F, BMP #### [address] Bilirubin.indirect [Mass/Vol] 0.10 mg/dL Normal 0.03-0.18 [facility] Comment on above: Performed By: #### T 4F, BMP #### [address] Globulin (S) [Mass/Vol] 2.9 g/dL Normal T [facility] Comment on above: Performed By: #### T 4F, BMP #### [address] Protein [Mass/Vol] 7.3 g/dL Normal 6.4-8.9 [facility] Comment on above: Performed By: #### T 4F, BMP #### [address] Ketones Auto test strip (U) [Mass/Vol]Ordered By: Camacho Ladd on 08-05-2022 Ketones (U) [Mass/Vol] Negative Negative [facility] - UrinalysisOrder ed By: Camacho Ladd on 08-05-2022 Hyaline casts LM Ql (Urine sed) None seen [LPF] 0-8 [facility] Leukocytes [#/volume] correc sofiya for nucleated erythrocytes in Blood by Automated counOrdered By: Camacho Ladd on 08-05-2022 WBC corrected for nucl RBC Auto (Bld) [#/Vol] 14.2 10*3/uL 3.8-11.6 [facility] Lipaseon 08-05-2022 Lipase [Catalytic activity/Vol] 23.0 U/L Normal 11.0-82.0 [facility] Comment on above: Result Comment: PERF ORMED BY: [address] [place] [address] PATHOLOGIST [employer] GOSIA MCADAMS M.D. Performed By: #### T 4F, BMP #### [place] [address] [place] Lipase [Enzymatic activity/v olume] in Serum or PlasmaOrdered By: Camacho Ladd on 08-05-2022 Lipase [Catalytic activity/Vol] 23.0 U/L 11.0-82.0 [facility] Lymphocytes Auto (Bld) [#/Vo l]Ordered By: Camacho Ladd on 08-05-2022 Lymphocytes (Bld) [#/Vol] 3.1 10*3/uL 1.00-4.8 [facility] Lymphocytes/100 WBC Auto (Bl d)Ordered By: Camacho Ladd on 08-05-2022 Lymphocytes/100 WBC (Bld) 21.9 % . [facility] MCH Auto (RBC) [Entitic mass ]Ordered By: Camacho Ladd on 08-05-2022 MCH (RBC) [Entitic mass] 31.6 pg 24.7-34.3 [facility] MCHC Auto (RBC) [Mass/Vol]Or dered By: Camacho Ladd on 08-05-2022 MCHC (RBC) [Mass/Vol] 35.0 g/dL 32.0-35.0 [facility] MCV Auto (RBC) [Entitic vol] Ordered By: Camacho Ladd on 08-05-2022 MCV (RBC) [Entitic vol] 90.4 fL 80-100 [facility] Monocyte distribution width [Entitic volume] in Blood by AutomatedOrdered By: Camacho Ladd on 08-05-2022 Monocyte distribution width Auto (Bld) [Entitic vol] 20.58 % 0.00-20.00 [facility] Comment on above: For adults in ED, MD W > 20.0 may be associated with a higher risk of sepsis during the first 12 hrs of hospital admission Monocytes Auto (Bld) [#/Vol] Ordered By: Camacho Ladd on 08-05-2022 Monocytes (Bld) [#/Vol] 1.4 10*3/uL 0.0-0.8 [facility] Monocytes/100 WBC Auto (Bld) Ordered By: Camacho Ladd on 08-05-2022 Monocytes/100 WBC (Bld) 9.6 % . [facility] Neutrophils Auto (Bld) [#/Vo l]Ordered By: Camacho Ladd on 08-05-2022 Neutrophils (Bld) [#/Vol] 9.6 10*3/uL 1.8-7.7 [facility] Neutrophils/100 WBC Auto (Bl d)Ordered By: Camacho Ladd on 08-05-2022 Neutrophils/100 WBC (Bld) 67.5 % . [facility] Nitrite Test strip Ql (U)Ord ered By: Camacho Ladd on 08-05-2022 Nitrite Ql (U) Negative Negative [facility] No Panel InformationOrdered By: Camacho Ladd on 08-05-2022 Estimated GFR (CKD-EPI) 53.284 mL/Min [facility] Creatinine Clearance (Chem 35.13 [facility] Nucleated erythrocytes [Pres ence] in Blood by Automated countOrdered By: Camacho Ladd on 08-05-2022 Nucleated RBC Auto Ql (Bld) 0.1 /100{WBC} 0-0.5 [facility] Platelet mean volume Auto (B ld) [Entitic vol]Ordered By: Camacho Ladd on 08-05-2022 Platelet mean volume (Bld) [Entitic vol] 7.2 fL 6.3-10.7 [facility] Platelets Auto (Bld) [#/Vol] Ordered By: Camacho Ladd on 08-05-2022 Platelets (Bld) [#/Vol] 500 10*3/uL 150-450 [facility] Potassium [Moles/volume] in Serum or PlasmaOrdered By: Camacho Ladd on 08-05-2022 Potassium [Moles/Vol] 3.0 mmol/L 3.5-5.1 [facility] Protein Auto test strip (U) [Mass/Vol]Ordered By: Camacho Ladd on 08-05-2022 Protein (U) [Mass/Vol] Negative Negative [facility] Protein [Mass/volume] in Ser um or PlasmaOrdered By: Camacho Ladd on 08-05-2022 Protein [Mass/Vol] 7.3 g/dL 6.4-8.9 [facility] RBC Auto (Bld) [#/Vol]Ordere d By: Camacho Ladd on 08-05-2022 RBC (Bld) [#/Vol] 4.13 10*6/uL 3.60-5.00 [facility] Serum or plasma albumin/glob ulin mass ratioOrdered By: Camacho Ladd on 08-05-2022 Albumin/Globulin [Mass ratio] 1.5 {ratio} [facility] Serum or plasma anion gap de terminationOrdered By: Camacho Ladd on 08-05-2022 Anion gap [Moles/Vol] 17.8 mmol/L 6.0-15.0 [facility] Serum or plasma non-glucuron idated bilirubin measurement (mass/volume)Ordered By: Camacho Ladd on 08-05-2022 Bilirubin.indirect [Mass/Vol] 0.6 mg/dL [facility] Sodium [Moles/volume] in Ser um or PlasmaOrdered By: Camacho Ladd on 08-05-2022 Sodium [Moles/Vol] 125 mmol/L 136-145 [facility] Specific gravity Auto test s trip (U) [Rel density]Ordered By: Camacho Ladd on 08-05-2022 Specific gravity (U) [Rel density] 1.009 1.001-1.030 [facility] Squamous epithelial cells de tection in urine sediment by light microscopyOrdered By: Camacho Ladd on 08-05-2022 Epithelial cells.squamous LM Ql (Urine sed) 0-1 [HPF] 0-2 [facility] Troponin I High Sensitivityo n 08-05-2022 Troponin I High Sensitivity 7.7 pg/mL Normal 0.0-15.0 [facility] Comment on above: Result Comment: PERF ORMED BY: [place] [address] PATHOLOGIST [employer] GOSIA MCADAMS M.D. Performed By: #### T 4F, BMP #### [address] Troponin I.cardiac [Mass/vol ume] in Serum or Plasma by Detection limit <= 0.01 ng/Ordered By: Camacho Ladd on 08-05-2022 Troponin I.cardiac DL <= 0.01 ng/mL [Mass/Vol] 7.7 pg/mL 0.0-15.0 [facility] Urea nitrogen [Mass/volume] in Serum or PlasmaOrdered By: Camacho Ladd on 08-05-2022 Urea nitrogen [Mass/Vol] 12 mg/dL 7-25 [facility] Urine bacteria detection by automated methodOrdered By: Camacho Ladd on 08-05-2022 Bacteria Auto Ql (U) None seen None Seen [facility] Urine clarity by refractomet ry automatedOrdered By: Camacho Ladd on 08-05-2022 Clarity Refractometry automated (U) Cloudy Clear [facility] Urine glucose measurement by automated test strip (mass/volume)Ordered By: Camacho Ladd on 08-05-2022 Glucose Auto test strip (U) [Mass/Vol] Normal mg/dL Normal [facility] Urine hemoglobin detection b y automated test stripOrdered By: Camacho Ladd on 08-05-2022 Hemoglobin Auto test strip Ql (U) Negative Negative [facility] Urine leukocyte esterase det ection by automated test stripOrdered By: Camacho Ladd on 08-05-2022 Leukocyte esterase Auto test strip Ql (U) 1+ Negative [facility] Urobilinogen Auto test strip (U) [Mass/Vol]Ordered By: Camacho Ladd on 08-05-2022 Urobilinogen (U) [Mass/Vol] Normal mg/dL Normal [facility] WBC Auto (Bld) [#/Vol]Ordere d By: Camacho Ladd on 08-05-2022 WBC (Bld) [#/Vol] 14.2 10*3/uL 3.8-11.6 [facility] pH Auto test strip (U)Ordere d By: Camacho Ladd on 08-05-2022 pH (U) 7.0 [pH] 5.0-9.0 [facility] BNPon 06-13-2022 Natriuretic peptide B (Bld) [Mass/Vol] 142.0 pg/mL Normal <=1,800.0 [facility] Comment on above: Performed By: #### T , BMP #### [facility] [address] [place] [address] Dr. Tasha Dodson CBC AUTO DIFFon 06-13-2022 BASO # 0.1 103/ul Normal 0.0-0.1 [facility] Comment on above: Performed By: #### T SH, BMP #### [facility] [address] [place] [address] Dr. Tasha Dodson Basophils/100 WBC (Bld) 1.0 % Normal 0.2-2.0 [facility] Comment on above: Performed By: #### T SH, BMP #### [facility] [address] [place] [address] Dr. Tasha Dodson EO # 0.3 103/ul Normal 0.0-0.7 [facility] Comment on above: Performed By: #### T SH, BMP #### [facility] [address] [place] [address] Dr. Tasha Dodson Eosinophils/100 WBC (Bld) 2.6 % Normal 0.9-7.0 [facility] Comment on above: Performed By: #### T SH, BMP #### [facility] [address] [place] [address] Dr. Tasha Dodson Erythrocyte distribution width (RBC) [Ratio] 13.4 % Normal 11.0-15.0 [facility] Comment on above: Performed By: #### T SH, BMP #### [facility] [address] [place] [address] Dr. Tasha Dodson Hematocrit (Bld) [Volume fraction] 39.5 % Normal 36.0-48.0 [facility] Comment on above: Performed By: #### T SH, BMP #### [facility] [address] [place] [address] Dr. Tasha Dodson Hemoglobin (Bld) [Mass/Vol] 13.1 g/dL Normal 12.0-16.0 [facility] Comment on above: Performed By: #### T SH, BMP #### [facility] [address] [place] [address] Dr. Tasha Dodson IG # 0.07 10e3/ul Critically high 0.00-0.03 [facility] Comment on above: Performed By: #### T SH, BMP #### [facility] [address] [place] [address] Dr. Tasha Dodson IG % 0.6 % Critically high 0.0-0.5 [facility] Comment on above: Performed By: #### T SH, BMP #### [facility] [address] [place] [address] Dr. Tasha Dodson LYMPH # 2.5 103/ul Normal 1.2-3.8 [facility] Comment on above: Performed By: #### T SH, BMP #### [facility] [address] [place] [address] Dr. Tasha Dodson Lymphocytes/100 WBC (Bld) 22.9 % Normal 20.5-60.0 [facility] Comment on above: Performed By: #### T SH, BMP #### [facility] [address] [place] [address] Dr. Tasha Dodson MANUAL DIFF REQ NO Normal [facility] Comment on above: Performed By: #### T SH, BMP #### [facility] [address] [place] [address] Dr. Tasha Dodson MCH (RBC) [Entitic mass] 30.7 pg Normal 26.7-34.0 [facility] Comment on above: Performed By: #### T SH, BMP #### [facility] [address] [place] [address] Dr. Tasha Dodson MCHC (RBC) [Mass/Vol] 33.2 g/dL Normal 29.9-35.2 [facility] Comment on above: Performed By: #### T SH, BMP #### [facility] [address] [place] [address] Dr. Tasha Dodson MCV (RBC) [Entitic vol] 92.5 fL Normal 81.0-99.0 [facility] Comment on above: Performed By: #### T SH, BMP #### [facility] [address] [place] [address] Dr. Tasha Dodson MONO # 0.8 103/ul Normal 0.3-0.8 [facility] Comment on above: Performed By: #### T SH, BMP #### [facility] [address] [place], [place] [id number] Dr. Tasha Dodson Monocytes/100 WBC (Bld) 7.0 % Normal 1.7-12.0 [facility] Comment on above: Performed By: #### T SH, BMP #### [facility] [address] [place] [address] Dr. Tasha Dodson NEUT # 7.2 103/ul Critically high 1.4-6.5 [facility] Comment on above: Performed By: #### T SH, BMP #### [facility] [address] [place] [address] Dr. Tasha Dodson Neutrophils/100 WBC (Bld) 65.9 % Normal 43.0-75.0 [facility] Comment on above: Performed By: #### T SH, BMP #### [facility] [address] [place] [address] Dr. Tasha Dodson Platelet mean volume (Bld) [Entitic vol] 8.0 fL Critically low 9.5-13.5 [facility] Comment on above: Performed By: #### T SH, BMP #### [facility] [address] [place] [address] Dr. Tasha Dodson PLT 449 103/ul Normal 150-450 [facility] Comment on above: Performed By: #### T SH, BMP #### [facility] [address] [place] [address] Dr. Tasha Dodson RBC 4.27 106/ul Normal 4.20-5.40 [facility] Comment on above: Performed By: #### T SH, BMP #### [facility] [address] [place] [address] Dr. Tasha Dodson WBC 10.9 103/ul Normal 4.0-11.0 [facility] Comment on above: Performed By: #### T SH, BMP #### [facility] [address] [place] [address] Dr. Tasha Dodson FREE THYROXINE INDEX T7on FTI 3.67 Normal 1.30-4.50 [facility] Comment on above: Performed By: #### T SH, BMP #### [facility] [address] [place] [address] Dr. Tasha Dodson T3U 36.0 % Normal 30.0-39.0 [facility] Comment on above: Performed By: #### T SH, BMP #### [facility] [address] [place] [address] Dr. Tasha Dodson T4 [Mass/Vol] 10.20 ug/dL Normal 4.80-13.90 [facility] Comment on above: Performed By: #### T SH, BMP #### [facility] [address] [place] [address] Dr. Tasha Dodson PROF CHEM 8 (BAS METB)on Anion gap [Moles/Vol] 13.8 mmol/L Normal [facility] Comment on above: Performed By: #### T SH, BMP #### [facility] [address] [place] [address] Dr. Tasha Dodson Calcium [Mass/Vol] 9.8 mg/dL Normal 8.5-10.1 [facility] Comment on above: Performed By: #### T SH, BMP #### [facility] [address] [place] [address] Dr. Tasha Dodson Chloride [Moles/Vol] 95 mmol/L Critically low 98-107 [facility] Comment on above: Performed By: #### T SH, BMP #### [facility] [address] [place] [address] Dr. Tasha Dodson CO2 [Moles/Vol] 30.5 mmol/L Normal 21.0-32.0 [facility] Comment on above: Performed By: #### T SH, BMP #### [facility] [address] [place] [address] Dr. Tasha Dodson Creatinine [Mass/Vol] 0.78 mg/dL Normal 0.55-1.02 [facility] Comment on above: Performed By: #### T SH, BMP #### [facility] [address] [place] [address] Dr. Tasha Dodson EGFR-AF MOSOTHO >60 Normal >=60 [facility] Comment on above: Performed By: #### T SH, BMP #### [facility] [address] [place] [address] Dr. Tasha Dodson EGFR-NON AF MOSOTHO >60 Normal >=60 [facility] Comment on above: Performed By: #### T SH, BMP #### [facility] [address] [address] [address] Tasha Dodson Glucose [Mass/Vol] 108 mg/dL Critically high 74-106 [facility] Comment on above: Performed By: #### T SH, BMP #### [facility] [address] [place] [address] Dr. Tasha Dodson Potassium [Moles/Vol] 3.3 mmol/L Critically low 3.5-5.1 [facility] Comment on above: Performed By: #### T SH, BMP #### [facility] [address] [place] [address] Dr. Tasha Dodson Sodium [Moles/Vol] 136 mmol/L Normal 136-145 [facility] Comment on above: Performed By: #### T SH, BMP #### [facility] [address] [place] [address] Dr. Tasha Dodson Urea nitrogen [Mass/Vol] 11.0 mg/dL Normal 7.0-18.0 [facility] Comment on above: Performed By: #### T SH, BMP #### [facility] [address] [place] [address] Dr. Tasha Dodson Urea nitrogen/Creatinine [Mass ratio] 14.1 mg/mg Normal [facility] Comment on above: Performed By: #### T SH, BMP #### [facility] [address] [place] [address] Dr. Tasha Dodson TSHon 06-13-2022 TSH 2.583 uIU/mL Normal 0.358-3.740 [facility] Comment on above: Performed By: #### T SH, BMP #### [facility] [address] [place] [address] Dr. 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 Tasha Dodson Clarity (U) CLEAR Normal CLEAR [facility] Comment on above: Performed By: #### T SH, BMP #### [facility] [address] [place] [address] Dr. Tasha Dodson Color (U) LT. YELLOW Normal YELLOW [facility] Comment on above: Performed By: #### T SH, BMP #### [facility] [address] [place] [address] Dr. Tasha Dodson Glucose Ql (U) Negative Normal NEGATIVE [facility] Comment on above: Performed By: #### T SH, BMP #### [facility] [address] [place] [address] Dr. Tasha Dodson Hemoglobin Ql (U) Negative Normal NEGATIVE [facility] Comment on above: Performed By: #### T SH, BMP #### [facility] [address] [place] [address] Dr. Tasha Dodson Ketones Ql (U) Negative Normal NEGATIVE [facility] Comment on above: Performed By: #### T SH, BMP #### [facility] [address] [place] [address] Dr. Tasha Dodson LEUKOCYTES Negative Normal NEGATIVE [facility] Comment on above: Performed By: #### T SH, BMP #### [facility] [address] [place] [address] Dr. Tasha Dodson Nitrite Ql (U) Negative Normal NEGATIVE [facility] Comment on above: Performed By: #### T SH, BMP #### [facility] [address] [place] [address] Dr. Tasha Dodson pH (U) 7.0 [pH] Normal 5-9 [facility] Comment on above: Performed By: #### T SH, BMP #### [facility] [address] [place] [address] Dr. Tasha Dodson SPEC GRAVITY 1.010 Normal 1.005-<=1.0 25 [facility] Comment on above: Performed By: #### T SH, BMP #### [facility] [address] [address] [address] Tasha Dodson UA PROTEIN Negative Normal NEGATIVE/ TRACE [facility] Comment on above: Performed By: #### T SH, BMP #### [facility] [address] [address] [address] Tasha Dodson UR MICRO IND NOT INDICATED Normal [facility] Comment on above: Performed By: #### T SH, BMP #### [facility] [address] [address] [address] Tasha Dodson Urobilinogen Qn (U) 0.2 {Juan'U}/dL Normal 0.2 - 1. 0 [facility] Comment on above: Performed By: #### T SH, BMP #### [facility] [address] [place] [address] Dr. Tasha Dodson ECHOCARDIO M/2D COMPLETEon 0 04-18-2022 ECHOCARDIO M/2D COMPLETE Patient: HIRAM MADRID Exam Date: 04/18/2022 : 1935 Gender:F Ordering : DR VALERIE DARDEN M.D. Admission #: [id number] Family : DR ADDY DANIELS . Order #: [id number] CLICK HERE TO VIEW EXAM ECHOCARDIOGRAM REPORT [...] Barragan M.D. on 04/19/2022 at 18:55 Normal [facility] Office Visiton 04-04-2022 Follow-up visit [id number] iHram Madrid 1935 F Date Provider Department Center 04/04/2022 Yazmin-ADELSO, VALERIE [facility] Family History Problem Relation Age of Onset Hypertension Mother Lupus Mother Coronary artery disease Mother Heart attack Mother Hypertension Father Aneurysm Father Coronary artery disease Father Hypertension Sister Lupus Sister Family Status - Relation Status Age at Mother Father Sister Level of Service:21971 PA OFFICE/OUTPATIENT ESTABLISHED MOD MDM 30-39 MIN Reason for Visit and Comments: Hyperlipidemia [182] Hypertension [769653] carotid artery stenosis [Other] 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 Tasha Dodson Basophils/100 WBC (Bld) 0.6 % Normal 0.2-2.0 [facility] Comment on above: Performed By: #### C BC #### [facility] [address] [place] [address] Dr. Tasha Dodson EO # 0.1 103/ul Normal 0.0-0.7 [facility] Comment on above: Performed By: #### C BC #### [facility] [address] [place] [address] Dr. Tasha Dodson Eosinophils/100 WBC (Bld) 0.9 % Normal 0.9-7.0 [facility] Comment on above: Performed By: #### C BC #### [facility] [address] [place] [address] Dr. Tasha Dodson Erythrocyte distribution width (RBC) [Ratio] 13.0 % Normal 11.0-15.0 [facility] Comment on above: Performed By: #### C BC #### [facility] [address] [place] [address] Dr. Tasha Dodson Hematocrit (Bld) [Volume fraction] 38.5 % Normal 36.0-48.0 [facility] Comment on above: Performed By: #### C BC #### [facility] [address] [place] [address] Dr. Tasha Dodson Hemoglobin (Bld) [Mass/Vol] 13.4 g/dL Normal 12.0-16.0 [facility] Comment on above: Performed By: #### C BC #### [facility] [address] [place] [address] Dr. Tasha Dodson IG # 0.07 10e3/ul Critically high 0.00-0.03 [facility] Comment on above: Performed By: #### C BC #### [facility] [address] [place] [address] Dr. Tasha Dodson IG % 0.5 % Normal 0.0-0.5 [facility] Comment on above: Performed By: #### C BC #### [facility] [address] [place] [address] Dr. Tasha Dodson LYMPH # 2.8 103/ul Normal 1.2-3.8 [facility] Comment on above: Performed By: #### C BC #### [facility] [address] [place] [address] Dr. Tasha Dodson Lymphocytes/100 WBC (Bld) 20.5 % Normal 20.5-60.0 [facility] Comment on above: Performed By: #### C BC #### [facility] [address] [place] [address] Dr. Tasha Dodson MANUAL DIFF REQ NO Normal [facility] Comment on above: Performed By: #### C BC #### [facility] [address] [place] [address] Dr. Tasha Dodson MCH (RBC) [Entitic mass] 30.7 pg Normal 26.7-34.0 [facility] Comment on above: Performed By: #### C BC #### [facility] [address] [place] [address] Dr. Tasha Dodson MCHC (RBC) [Mass/Vol] 34.8 g/dL Normal 29.9-35.2 [facility] Comment on above: Performed By: #### C BC #### [facility] [address] [place] [address] Dr. Tasha Dodson MCV (RBC) [Entitic vol] 88.3 fL Normal 81.0-99.0 [facility] Comment on above: Performed By: #### C BC #### [facility] [address] [place] [address] Dr. Tasha Dodson MONO # 1.0 103/ul Critically high 0.3-0.8 [facility] Comment on above: Performed By: #### C BC #### [facility] [address] [place] [address] Dr. Tasha Dodson Monocytes/100 WBC (Bld) 7.4 % Normal 1.7-12.0 [facility] Comment on above: Performed By: #### C BC #### [facility] [address] [place] [address] Dr. Tasha Dodson NEUT # 9.5 103/ul Critically high 1.4-6.5 [facility] Comment on above: Performed By: #### C BC #### [facility] [address] [place] [address] Dr. Tasha Dodson Neutrophils/100 WBC (Bld) 70.1 % Normal 43.0-75.0 [facility] Comment on above: Performed By: #### C BC #### [facility] [address] [place] [address] Dr. Tasha Dodson Platelet mean volume (Bld) [Entitic vol] 8.0 fL Critically low 9.5-13.5 [facility] Comment on above: Performed By: #### C BC #### [facility] [address] [place] [address] Dr. Tasha Dodson PLT 492 103/ul Critically high 150-450 [facility] Comment on above: Performed By: #### C BC #### [facility] [address] [place] [address] Dr. Tasha Dodson RBC 4.36 106/ul Normal 4.20-5.40 [facility] Comment on above: Performed By: #### C BC #### [facility] [address] [place] [address] Dr. Tasha Dodson WBC 13.5 103/ul Critically high 4.0-11.0 [facility] Comment on above: Performed By: #### C BC #### [facility] [address] [place] [address] Dr. Tasha Dodson PROF 14(COMP METB)on 01-04- 022 Albumin [Mass/Vol] 3.8 g/dL Normal 3.4-5.0 [facility] Comment on above: Performed By: #### T JESI, BMP #### [facility] [address] [place] [address] Dr. Tasha Dodson Albumin/Globulin [Mass ratio] 0.9 {ratio} Normal [facility] Comment on above: Performed By: #### T SH, BMP #### [facility] [address] [place] [address] Dr. Tasha Dodson ALP [Catalytic activity/Vol] 60 U/L Normal 46-116 [facility] Comment on above: Performed By: #### T SH, BMP #### [facility] [address] [place] [address] Dr. Tasha Dodson ALT [Catalytic activity/Vol] 26 U/L Normal 14-59 [facility] Comment on above: Performed By: #### T JESI, BMP #### [facility] [address] [place] [address] Dr. Tasha Dodson Anion gap [Moles/Vol] 8.4 mmol/L Normal [facility] Comment on above: Performed By: #### T SH, BMP #### [facility] [address] [place] [address] Dr. Tasha Dodson AST [Catalytic activity/Vol] 19 U/L Normal 15-37 [facility] Comment on above: Performed By: #### T SH, BMP #### [facility] [address] [place] [address] Dr. Tasha Dodson Bilirubin [Mass/Vol] 0.4 mg/dL Normal 0.2-1.0 [facility] Comment on above: Performed By: #### T SH, BMP #### [facility] [address] [place] [address] Dr. Tasha Dodson Calcium [Mass/Vol] 10.1 mg/dL Normal 8.5-10.1 [facility] Comment on above: Performed By: #### T SH, BMP #### [facility] [address] [place] [address] Dr. Tasha Dodson Chloride [Moles/Vol] 92 mmol/L Critically low 98-107 [facility] Comment on above: Performed By: #### T SH, BMP #### [facility] [address] [place] [address] Dr. Tasha Dodson CO2 [Moles/Vol] 33.8 mmol/L Critically high 21.0-32.0 [facility] Comment on above: Performed By: #### T SH, BMP #### [facility] [address] [place] [address] Dr. Tasha Dodson Creatinine [Mass/Vol] 0.67 mg/dL Normal 0.55-1.02 [facility] Comment on above: Performed By: #### T SH, BMP #### [facility] [address] [place] [address] Dr. Tasha Dodson EGFR-AF MOSOTHO >60 Normal >=60 [facility] Comment on above: Performed By: #### T SH, BMP #### [facility] [address] [place] [address] Dr. Tasha Dodson EGFR-NON AF MOSOTHO >60 Normal >=60 [facility] Comment on above: Performed By: #### T SH, BMP #### [facility] [address] [place] [address] Dr. Tasha Dodson Globulin (S) [Mass/Vol] 4.1 g/dL Normal [facility] Comment on above: Performed By: #### T SH, BMP #### [facility] [address] [place] [address] Dr. Tasha Dodson Glucose [Mass/Vol] 106 mg/dL Normal 74-106 [facility] Comment on above: Performed By: #### T SH, BMP #### [facility] [address] [place] [address] Dr. Tasha Dodson Potassium [Moles/Vol] 3.2 mmol/L Critically low 3.5-5.1 [facility] Comment on above: Performed By: #### T SH, BMP #### [facility] [address] [place] [address] Dr. Tasha Dodson Protein [Mass/Vol] 7.9 g/dL Normal 6.4-8.2 [facility] Comment on above: Performed By: #### T SH, BMP #### [facility] [address] [place] [address] Dr. Tasha Dodson Sodium [Moles/Vol] 131 mmol/L Critically low 136-145 [facility] Comment on above: Performed By: #### T SH, BMP #### [facility] [address] [place] [address] Dr. Tasha Dodson Urea nitrogen [Mass/Vol] 10.0 mg/dL Normal 7.0-18.0 [facility] Comment on above: Performed By: #### T SH, BMP #### [facility] [address] [place] [address] Dr. Tasha Dodson Urea nitrogen/Creatinine [Mass ratio] 14.9 mg/mg Normal [facility] Comment on above: Performed By: #### T SH, BMP #### [facility] [address] [place] [address] Dr. Tasha Dodson CBC AUTO DIFFon 12-29-2021 BASO # 0.1 103/ul Normal 0.0-0.1 [facility] Comment on above: Performed By: #### C BC #### [facility] [address] [place] [address] Dr. Tasha Dodson Basophils/100 WBC (Bld) 0.5 % Normal 0.2-2.0 [facility] Comment on above: Performed By: #### C BC #### [facility] [address] [place] [address] Dr. Tasha Dodson EO # 0.1 103/ul Normal 0.0-0.7 [facility] Comment on above: Performed By: #### C BC #### [facility] [address] [place] [address] Dr. Tasha Dodson Eosinophils/100 WBC (Bld) 0.4 % Critically low 0.9-7.0 [facility] Comment on above: Performed By: #### C BC #### [facility] [address] [place] [address] Dr. Tasha Dodson Erythrocyte distribution width (RBC) [Ratio] 13.0 % Normal 11.0-15.0 [facility] Comment on above: Performed By: #### C BC #### [facility] [address] [place] [address] Dr. Tasha Dodson Hematocrit (Bld) [Volume fraction] 34.0 % Critically low 36.0-48.0 [facility] Comment on above: Performed By: #### C BC #### [facility] [address] [place] [address] Dr. Tasha Dodson Hemoglobin (Bld) [Mass/Vol] 12.0 g/dL Normal 12.0-16.0 [facility] Comment on above: Performed By: #### C BC #### [facility] [address] [place] [address] Dr. Tasha Dodson IG # 0.06 10e3/ul Critically high 0.00-0.03 [facility] Comment on above: Performed By: #### C BC #### [facility] [address] [place] [address] Dr. Tasha Dodson IG % 0.4 % Normal 0.0-0.5 [facility] Comment on above: Performed By: #### C BC #### [facility] [address] [place] [address] Dr. Tasha Dodson LYMPH # 2.5 103/ul Normal 1.2-3.8 [facility] Comment on above: Performed By: #### C BC #### [facility] [address] [place] [address] Dr. Tasha Dodson Lymphocytes/100 WBC (Bld) 17.4 % Critically low 20.5-60.0 [facility] Comment on above: Performed By: #### C BC #### [facility] [address] [place] [address] Dr. Tasha Dodson MANUAL DIFF REQ NO Normal [facility] Comment on above: Performed By: #### C BC #### [facility] [address] [place] [address] Dr. Tasha Dodson MCH (RBC) [Entitic mass] 31.0 pg Normal 26.7-34.0 [facility] Comment on above: Performed By: #### C BC #### [facility] [address] [place] [address] Dr. Tasha Dodson MCHC (RBC) [Mass/Vol] 35.3 g/dL Critically high 29.9-35.2 [facility] Comment on above: Performed By: #### C BC #### [facility] [address] [place] [address] Dr. Tasha Dodson MCV (RBC) [Entitic vol] 87.9 fL Normal 81.0-99.0 [facility] Comment on above: Performed By: #### C BC #### [facility] [address] [place] [address] Dr. Tasha Dodson MONO # 1.0 103/ul Critically high 0.3-0.8 [facility] Comment on above: Performed By: #### C BC #### [facility] [address] [place] [address] Dr. Tasha Dodson Monocytes/100 WBC (Bld) 6.9 % Normal 1.7-12.0 [facility] Comment on above: Performed By: #### C BC #### [facility] [address] [place] [address] Dr. Tasha Dodson NEUT # 10.8 103/ul Critically high 1.4-6.5 [facility] Comment on above: Performed By: #### C BC #### [facility] [address] [place] [address] Dr. Tasha Dodson Neutrophils/100 WBC (Bld) 74.4 % Normal 43.0-75.0 [facility] Comment on above: Performed By: #### C BC #### [facility] [address] [place] [address] Dr. Tasha Dodson Platelet mean volume (Bld) [Entitic vol] 8.4 fL Critically low 9.5-13.5 [facility] Comment on above: Performed By: #### C BC #### [facility] [address] [place] [address] Dr. Tasha Dodson PLT 370 103/ul Normal 150-450 [facility] Comment on above: Performed By: #### C BC #### [facility] [address] [place] [address] Dr. Tasha Dodson RBC 3.87 106/ul Critically low 4.20-5.40 [facility] Comment on above: Performed By: #### C BC #### [facility] [address] [place] [address] Dr. Tasha Dodson WBC 14.5 103/ul Critically high 4.0-11.0 [facility] Comment on above: Performed By: #### C BC #### [facility] [address] [place] [address] Dr. Tasha Dodson PROF 14(COMP METB)on 022 Albumin [Mass/Vol] 2.8 g/dL Critically low 3.4-5.0 [facility] Comment on above: Performed By: #### T , BMP #### [facility] [address] [place] [address] Dr. Tasha Dodson Albumin/Globulin [Mass ratio] 0.9 {ratio} Normal [facility] Comment on above: Performed By: #### T SH, BMP #### [facility] [address] [place] [address] Dr. Tasha Dodson ALP [Catalytic activity/Vol] 51 U/L Normal 46-116 [facility] Comment on above: Performed By: #### T SH, BMP #### [facility] [address] [place] [address] Dr. Tasha Dodson ALT [Catalytic activity/Vol] 15 U/L Normal 14-59 [facility] Comment on above: Performed By: #### T JESI, BMP #### [facility] [address] [place] [address] Dr. Tasha Dodson Anion gap [Moles/Vol] 9.7 mmol/L Normal [facility] Comment on above: Performed By: #### T JESI, BMP #### [facility] [address] [place] [address] Dr. Tasha Dodson AST [Catalytic activity/Vol] 15 U/L Normal 15-37 [facility] Comment on above: Performed By: #### T JESI, BMP #### [facility] [address] [place] [address] Dr. Tasha Dodson Bilirubin [Mass/Vol] 0.4 mg/dL Normal 0.2-1.0 [facility] Comment on above: Performed By: #### T JESI, BMP #### [facility] [address] [place] [address] Dr. Tasha Dodson Calcium [Mass/Vol] 8.6 mg/dL Normal 8.5-10.1 [facility] Comment on above: Performed By: #### T SH, BMP #### [facility] [address] [place] [address] Dr. Tasha Dodson Chloride [Moles/Vol] 97 mmol/L Critically low 98-107 [facility] Comment on above: Performed By: #### T SH, BMP #### [facility] [address] [place] [address] Dr. Tasha Dodson CO2 [Moles/Vol] 25.8 mmol/L Normal 21.0-32.0 [facility] Comment on above: Performed By: #### T SH, BMP #### [facility] [address] [place] [address] Dr. Tasha Dodson Creatinine [Mass/Vol] 0.52 mg/dL Critically low 0.55-1.02 [facility] Comment on above: Performed By: #### T SH, BMP #### [facility] [address] [place] [address] Dr. Tasha Dodson EGFR-AF MOSOTHO >60 Normal >=60 [facility] Comment on above: Performed By: #### T SH, BMP #### [facility] [address] [place] [address] Dr. Tasha Dodson EGFR-NON AF MOSOTHO >60 Normal >=60 [facility] Comment on above: Performed By: #### T SH, BMP #### [facility] [address] [place] [address] Dr. Tasha Dodson Globulin (S) [Mass/Vol] 3.2 g/dL Normal [facility] Comment on above: Performed By: #### T SH, BMP #### [facility] [address] [place] [address] Dr. Tasha Dodson Glucose [Mass/Vol] 117 mg/dL Critically high 74-106 [facility] Comment on above: Performed By: #### T SH, BMP #### [facility] [address] [place] [address] Dr. Tasha Dodson Potassium [Moles/Vol] 3.5 mmol/L Normal 3.5-5.1 [facility] Comment on above: Performed By: #### T SH, BMP #### [facility] [address] [place] [address] Dr. Tasha Dodson Protein [Mass/Vol] 6.0 g/dL Critically low 6.4-8.2 [facility] Comment on above: Performed By: #### T SH, BMP #### [facility] [address] [place] [address] Dr. Tasha Dodson Sodium [Moles/Vol] 129 mmol/L Critically low 136-145 [facility] Comment on above: Performed By: #### T SH, BMP #### [facility] [address] [place] [address] Dr. Tasha Dodson Urea nitrogen [Mass/Vol] 4.0 mg/dL Critically low 7.0-18.0 [facility] Comment on above: Performed By: #### T SH, BMP #### [facility] [address] [place] [address] Dr. Tasha Dodson Urea nitrogen/Creatinine [Mass ratio] 7.7 mg/mg Normal [facility] Comment on above: Performed By: #### T JESI, BMP #### [facility] [address] [place] [address] Dr. Tasha Dodson CBC AUTO DIFFon 12-28-2021 BASO # 0.1 103/ul Normal 0.0-0.1 [facility] Comment on above: Performed By: #### C BC #### [facility] [address] [place] [address] Dr. Tasha Dodson Basophils/100 WBC (Bld) 0.4 % Normal 0.2-2.0 [facility] Comment on above: Performed By: #### C BC #### [facility] [address] [place] [address] Dr. Tasha Dodson EO # 0.1 103/ul Normal 0.0-0.7 [facility] Comment on above: Performed By: #### C BC #### [facility] [address] [place] [address] Dr. Tasha Dodson Eosinophils/100 WBC (Bld) 0.4 % Critically low 0.9-7.0 [facility] Comment on above: Performed By: #### C BC #### [facility] [address] [place] [address] Dr. Tasha Dodson Erythrocyte distribution width (RBC) [Ratio] 12.9 % Normal 11.0-15.0 [facility] Comment on above: Performed By: #### C BC #### [facility] [address] [place] [address] Dr. Tasha Dodson Hematocrit (Bld) [Volume fraction] 34.2 % Critically low 36.0-48.0 [facility] Comment on above: Performed By: #### C BC #### [facility] [address] [place] [address] Dr. Tasha Dodson Hemoglobin (Bld) [Mass/Vol] 12.4 g/dL Normal 12.0-16.0 [facility] Comment on above: Performed By: #### C BC #### [facility] [address] [place] [address] Dr. Tasha Dodson IG # 0.09 10e3/ul Critically high 0.00-0.03 [facility] Comment on above: Performed By: #### C BC #### [facility] [address] [place] [address] Dr. Tasha Dodson IG % 0.6 % Critically high 0.0-0.5 [facility] Comment on above: Performed By: #### C BC #### [facility] [address] [place] [address] Dr. Tasha Dodson LYMPH # 2.2 103/ul Normal 1.2-3.8 [facility] Comment on above: Performed By: #### C BC #### [facility] [address] [place] [address] Dr. Tasha Dodson Lymphocytes/100 WBC (Bld) 13.6 % Critically low 20.5-60.0 [facility] Comment on above: Performed By: #### C BC #### [facility] [address] [place] [address] Dr. Tasha Dodson MANUAL DIFF REQ NO Normal [facility] Comment on above: Performed By: #### C BC #### [facility] [address] [place] [address] Dr. Tasha Dodson MCH (RBC) [Entitic mass] 31.2 pg Normal 26.7-34.0 [facility] Comment on above: Performed By: #### C BC #### [facility] [address] [place] [address] Dr. Tasha Dodson MCHC (RBC) [Mass/Vol] 36.3 g/dL Critically high 29.9-35.2 [facility] Comment on above: Performed By: #### C BC #### [facility] [address] [place] [address] Dr. Tasha Dodson MCV (RBC) [Entitic vol] 85.9 fL Normal 81.0-99.0 [facility] Comment on above: Performed By: #### C BC #### [facility] [address] [address] [address] Tasha Dodson MONO # 1.3 103/ul Critically high 0.3-0.8 [facility] Comment on above: Performed By: #### C BC #### [facility] [address] [place] [address] Dr. Tasha Dodson Monocytes/100 WBC (Bld) 7.8 % Normal 1.7-12.0 [facility] Comment on above: Performed By: #### C BC #### [facility] [address] [place] [address] Dr. Tasha Dodson NEUT # 12.4 103/ul Critically high 1.4-6.5 [facility] Comment on above: Performed By: #### C BC #### [facility] [address] [place] [address] Dr. Tasha Dodson Neutrophils/100 WBC (Bld) 77.2 % Critically high 43.0-75.0 [facility] Comment on above: Performed By: #### C BC #### [facility] [address] [place] [address] Dr. Tasha Dodson Platelet mean volume (Bld) [Entitic vol] 8.6 fL Critically low 9.5-13.5 [facility] Comment on above: Performed By: #### C BC #### [facility] [address] [place] [address] Dr. Tasha Dodson PLT 385 103/ul Normal 150-450 [facility] Comment on above: Performed By: #### C BC #### [facility] [address] [place] [address] Dr. Tasha Dodson RBC 3.98 106/ul Critically low 4.20-5.40 [facility] Comment on above: Performed By: #### C BC #### [facility] [address] [place] [address] Dr. Tasha Dodson WBC 16.1 103/ul Critically high 4.0-11.0 [facility] Comment on above: Performed By: #### C BC #### [facility] [address] [place] [address] Dr. Tasha Dodson PROF 14(COMP METB)on 022 Albumin [Mass/Vol] 3.2 g/dL Critically low 3.4-5.0 [facility] Comment on above: Performed By: #### T SH, BMP #### [facility] [address] [place] [address] Dr. Tasha Dodson Albumin/Globulin [Mass ratio] 1.0 {ratio} Normal [facility] Comment on above: Performed By: #### T SH, BMP #### [facility] [address] [place] [address] Dr. Tasha Dodson ALP [Catalytic activity/Vol] 51 U/L Normal 46-116 [facility] Comment on above: Performed By: #### T SH, BMP #### [facility] [address] [place] [address] Dr. Tasha Dodson ALT [Catalytic activity/Vol] 17 U/L Normal 14-59 [facility] Comment on above: Performed By: #### T SH, BMP #### [facility] [address] [place] [address] Dr. Tasha Dodson Anion gap [Moles/Vol] 10.5 mmol/L Normal [facility] Comment on above: Performed By: #### T SH, BMP #### [facility] [address] [place] [address] Dr. Tasha Dodson AST [Catalytic activity/Vol] 18 U/L Normal 15-37 [facility] Comment on above: Performed By: #### T SH, BMP #### [facility] [address] [place] [address] Dr. Tasha Dodson Bilirubin [Mass/Vol] 0.4 mg/dL Normal 0.2-1.0 [facility] Comment on above: Performed By: #### T SH, BMP #### [facility] [address] [place] [address] Dr. Tasha Dodson Calcium [Mass/Vol] 8.3 mg/dL Critically low 8.5-10.1 [facility] Comment on above: Performed By: #### T SH, BMP #### [facility] [address] [place] [address] Dr. Tasha Dodson Chloride [Moles/Vol] 96 mmol/L Critically low 98-107 [facility] Comment on above: Performed By: #### T SH, BMP #### [facility] [address] [place] [address] Dr. Tasha Dodson CO2 [Moles/Vol] 24.5 mmol/L Normal 21.0-32.0 [facility] Comment on above: Performed By: #### T SH, BMP #### [facility] [address] [place] [address] Dr. Tasha Dodson Creatinine [Mass/Vol] 0.54 mg/dL Critically low 0.55-1.02 [facility] Comment on above: Performed By: #### T SH, BMP #### [facility] [address] [place] [address] Dr. Tasha Dodson EGFR-AF MOSOTHO >60 Normal >=60 [facility] Comment on above: Performed By: #### T SH, BMP #### [facility] [address] [place] [address] Dr. Tasha Dodson EGFR-NON AF MOSOTHO >60 Normal >=60 [facility] Comment on above: Performed By: #### T SH, BMP #### [facility] [address] [place] [address] Dr. Tasha Dodson Globulin (S) [Mass/Vol] 3.1 g/dL Normal T [facility] Comment on above: Performed By: #### T SH, BMP #### [facility] [address] [place] [address] Dr. Tasha Dodson Glucose [Mass/Vol] 123 mg/dL Critically high 74-106 T [facility] Comment on above: Performed By: #### T SH, BMP #### [facility] [address] [place] [address] Dr. Tasha Dodson Potassium [Moles/Vol] 3.0 mmol/L Critically low 3.5-5.1 [facility] Comment on above: Performed By: #### T SH, BMP #### [facility] [address] [place] [address] Dr. Tasha Dodson Protein [Mass/Vol] 6.3 g/dL Critically low 6.4-8.2 Th [facility] Comment on above: Performed By: #### T JESI, BMP #### [facility] [address] [place] [address] Dr. Tasha Dodson Sodium [Moles/Vol] 128 mmol/L Critically low 136-145 [facility] Comment on above: Performed By: #### T JESI, BMP #### [facility] [address] [place] [address] Dr. Tasha Dodson Urea nitrogen [Mass/Vol] 5.0 mg/dL Critically low 7.0-18.0 [facility] Comment on above: Performed By: #### T JESI, BMP #### [facility] [address] [place] [address] Dr. Tasha Dodson Urea nitrogen/Creatinine [Mass ratio] 9.3 mg/mg Normal [facility] Comment on above: Performed By: #### T JESI, BMP #### [facility] [address] [place] [address] Dr. Tasha Dodosn SODIUM RANDOM URINEon 2021 Sodium (U) [Moles/Vol] 135 mmol/L Critically high 30-90 [facility] Comment on above: Performed By: #### C BC #### [facility] [address] [place] [address] Dr. Tasha Dodson CBC AUTO DIFFon 12-27-2021 BASO # 0.0 103/ul Normal 0.0-0.1 [facility] Comment on above: Performed By: #### C BC #### [facility] [id number] [address] Tasha Dodson Basophils/100 WBC (Bld) 0.2 % Normal 0.2-2.0 [facility] Comment on above: Performed By: #### C BC #### [facility] [address] [address] [address] Tasha Dodson EO # 0.3 103/ul Normal 0.0-0.7 [facility] Comment on above: Performed By: #### C BC #### [facility] [address] [place] [address] Dr. Tasha Dodson Eosinophils/100 WBC (Bld) 2.3 % Normal 0.9-7.0 [facility] Comment on above: Performed By: #### C BC #### [facility] [address] [place] [address] Dr. Tasha Dodson Erythrocyte distribution width (RBC) [Ratio] 12.4 % Normal 11.0-15.0 [facility] Comment on above: Performed By: #### C BC #### [facility] [address] [place] [address] Dr. Tasha Dodson Hematocrit (Bld) [Volume fraction] 35.4 % Critically low 36.0-48.0 [facility] Comment on above: Performed By: #### C BC #### [facility] [address] [place] [address] Dr. Tasha Dodson Hemoglobin (Bld) [Mass/Vol] 12.9 g/dL Normal 12.0-16.0 [facility] Comment on above: Performed By: #### C BC #### [facility] [address] [place] [address] Dr. Tasha Dodson IG # 0.06 10e3/ul Critically high 0.00-0.03 [facility] Comment on above: Performed By: #### C BC #### [facility] [address] [place] [address] Dr. Tasha Dodson IG % 0.5 % Normal 0.0-0.5 [facility] Comment on above: Performed By: #### C BC #### [facility] [address] [address] [address] Tasha Dodson LYMPH # 2.0 103/ul Normal 1.2-3.8 [facility] Comment on above: Performed By: #### C BC #### [facility] [address] [place] [address] Dr. Tasha Dodson Lymphocytes/100 WBC (Bld) 15.7 % Critically low 20.5-60.0 [facility] Comment on above: Performed By: #### C BC #### [facility] [address] [place] [address] Dr. Tasha Dodson MANUAL DIFF REQ NO Normal [facility] Comment on above: Performed By: #### C BC #### [facility] [address] [place] [address] Dr. Tasha Dodson MCH (RBC) [Entitic mass] 31.0 pg Normal 26.7-34.0 [facility] Comment on above: Performed By: #### C BC #### [facility] [address] [place] [address] Dr. Tasha Dodson MCHC (RBC) [Mass/Vol] 36.4 g/dL Critically high 29.9-35.2 [facility] Comment on above: Performed By: #### C BC #### [facility] [address] [place] [address] Dr. Tasha Dodson MCV (RBC) [Entitic vol] 85.1 fL Normal 81.0-99.0 [facility] Comment on above: Performed By: #### C BC #### [facility] [address] [place] [address] Dr. Tasha Dodson MONO # 1.1 103/ul Critically high 0.3-0.8 [facility] Comment on above: Performed By: #### C BC #### [facility] [address] [place] [address] Dr. Tasha Dodson Monocytes/100 WBC (Bld) 8.3 % Normal 1.7-12.0 [facility] Comment on above: Performed By: #### C BC #### [facility] [address] [address] [address] Tasha Dodson NEUT # 9.5 103/ul Critically high 1.4-6.5 [facility] Comment on above: Performed By: #### C BC #### [facility] [address] [place] [address] Dr. Tasha Dodson Neutrophils/100 WBC (Bld) 73.0 % Normal 43.0-75.0 [facility] Comment on above: Performed By: #### C BC #### [facility] [address] [place] [address] Dr. Tasha Dodson Platelet mean volume (Bld) [Entitic vol] 8.3 fL Critically low 9.5-13.5 [facility] Comment on above: Performed By: #### C BC #### [facility] [address] [place] [address] Dr. Tasha Dodson PLT 408 103/ul Normal 150-450 [facility] Comment on above: Performed By: #### C BC #### [facility] [address] [place] [address] Dr. Tasha Dodson RBC 4.16 106/ul Critically low 4.20-5.[address] [facility] Comment on above: Performed By: #### C BC #### [facility] [address] [place] [address] Dr. Tasha Dodson WBC 13.0 103/ul Critically high 4.0-11.0 [facility] Comment on above: Performed By: #### C BC #### [facility] [address] [place] [address] Dr. Tasha Dodson CULTURE SPUTUMon 12-27-2021 CULTURE SPUTUM Culture Observations : NORMAL RESPIRATORY AMADOU. Normal [facility] Comment on above: Performed By: #### C BC #### [facility] [address] [place] [address] Dr. Tasha Dodson PROF 14(COMP METB)on 022 Albumin [Mass/Vol] 3.4 g/dL Normal 3.4-5.0 [facility] Comment on above: Performed By: #### C MADM, LIPA, BNP, CMP #### [facility] [address] [address] [address] Tasha Dodson Albumin/Globulin [Mass ratio] 1.0 {ratio} Normal [facility] Comment on above: Performed By: #### C MADM, LIPA, BNP, CMP #### [facility] [address] [address] [address] Tasha Dodson ALP [Catalytic activity/Vol] 54 U/L Normal 46-116 [facility] Comment on above: Performed By: #### C MADM, LIPA, BNP, CMP #### [facility] [address] [address] [address] Tasha Dodson ALT [Catalytic activity/Vol] 20 U/L Normal 14-59 [facility] Comment on above: Performed By: #### C MADM, LIPA, BNP, CMP #### [facility] [address] [place] [address] Dr. Tasha Dodson Anion gap [Moles/Vol] 10.8 mmol/L Normal [facility] Comment on above: Performed By: #### C MADM, LIPA, BNP, CMP #### [facility] [address] [place] [address] Dr. Tasha Dodson AST [Catalytic activity/Vol] 19 U/L Normal 15-37 [facility] Comment on above: Performed By: #### C MADM, LIPA, BNP, CMP #### [facility] [address] [place] [address] Dr. Tasha Dodson Bilirubin [Mass/Vol] 0.5 mg/dL Normal 0.2-1.0 [facility] Comment on above: Performed By: #### C MADM, LIPA, BNP, CMP #### [facility] [address] [address] [address] Tasha Dodson Calcium [Mass/Vol] 8.3 mg/dL Critically low 8.5-10.1 [facility] Comment on above: Performed By: #### C MADM, LIPA, BNP, CMP #### [facility] [address] [place] [address] Dr. Tasha Dodson Chloride [Moles/Vol] 89 mmol/L Critically low 98-107 [facility] Comment on above: Performed By: #### C MADM, LIPA, BNP, CMP #### [facility] [address] [address] [address] Tasha Dodson CO2 [Moles/Vol] 27.0 mmol/L Normal 21.0-32.0 [facility] Comment on above: Performed By: #### C MADM, LIPA, BNP, CMP #### [facility] [address] [address] [address] Tasha Dodson Creatinine [Mass/Vol] 0.69 mg/dL Normal 0.55-1.02 [facility] Comment on above: Performed By: #### C MADM, LIPA, BNP, CMP #### [facility] [address] [address] [address] Tasha Dodson EGFR-AF MOSOTHO >60 Normal >=60 [facility] Comment on above: Performed By: #### C MADM, LIPA, BNP, CMP #### [facility] [address] [address] [address] Tasha Dodson EGFR-NON AF MOSOTHO >60 Normal >=60 [facility] Comment on above: Performed By: #### C MADM, LIPA, BNP, CMP #### [facility] [address] [address] [address] Tasha Dodson Globulin (S) [Mass/Vol] 3.3 g/dL Normal [facility] Comment on above: Performed By: #### C MADM, LIPA, BNP, CMP #### [facility] [address] [address] [address] Tasha Dodson Glucose [Mass/Vol] 115 mg/dL Critically high 74-106 [facility] Comment on above: Performed By: #### C MADM, LIPA, BNP, CMP #### [facility] [address] [address] [address] Tasha Dodson Potassium [Moles/Vol] 2.7 mmol/L Critically low 3.5-5.1 [facility] Comment on above: Result Comment: Test Repeated. Critical Value Verified Performed By: #### C MADM, LIPA, BNP, CMP #### [facility] [address] [address] [address] Tasha Dodson Protein [Mass/Vol] 6.7 g/dL Normal 6.4-8.2 [facility] Comment on above: Performed By: #### C MADM, LIPA, BNP, CMP #### [facility] [address] [address] [address] Tasha Dodson Sodium [Moles/Vol] 123 mmol/L Critically low 136-145 Th [facility] Comment on above: Result Comment: Test Repeated. Critical Value Verified Performed By: #### C MADM, LIPA, BNP, CMP #### [facility] [address] [place] [address] Dr. Tasha Dodson Urea nitrogen [Mass/Vol] 6.0 mg/dL Critically low 7.0-18.0 [facility] Comment on above: Performed By: #### C MADM, LIPA, BNP, CMP #### [facility] [address] [address] [address] Tasha Dodson Urea nitrogen/Creatinine [Mass ratio] 8.7 mg/mg [facility] Comment on above: Performed By: #### C MADM, LIPA, BNP, CMP #### [facility] [address] [place] [address] Dr. Tasha Dodson SPUTUM GRAM STAINon 12-28-19 COMMENTS Normal [facility] Comment on above: Performed By: #### T SH, BMP #### [facility] [address] [place] [address] Dr. Tasha Dodson DIPHTHEROIDS Normal [facility] Comment on above: Performed By: #### T SH, BMP #### [facility] [address] [place] [address] Dr. Tasha Dodson EPITHELIALS <25 Normal [facility] Comment on above: Performed By: #### T SH, BMP #### [facility] [address] [place] [address] Dr. Tasha Dodson FUNGAL ELEMENTS Normal [facility] Comment on above: Performed By: #### T SH, BMP #### [facility] [address] [place] [address] Dr. Tasha Dodson GRAM NEG BACILLI Normal [facility] Comment on above: Performed By: #### T SH, BMP #### [facility] [address] [address] [address] Tasha Dodson GRAM NEG DIPPLOCOCCI Normal [facility] Comment on above: Performed By: #### T SH, BMP #### [facility] [address] [place] [address] Dr. Tasha FAUST POS BACILLI Normal [facility] Comment on above: Performed By: #### T SH, BMP #### [facility] [address] [place] [address] Dr. Tasha FAUST POSITIVE COCCI MODERATE Normal [facility] Comment on above: Performed By: #### T SH, BMP #### [facility] [address] [place] [address] Dr. Tasha Dodson WBC (Bld) [#/Vol] 10*3/uL Normal [facility] Comment on above: Performed By: #### T SH, BMP #### [facility] [address] [place] [address] Dr. Tasha Dodson BNPon 12-26-2021 Natriuretic peptide B (Bld) [Mass/Vol] 148.0 pg/mL Normal <=1,800.0 [facility] Comment on above: Performed By: #### C MADM, LIPA, BNP, CMP #### [facility] [address] [place] [address] Dr. Tasha Dodson CARDIAC ANGELO ADMITon 022 CK [Catalytic activity/Vol] 139 U/L Normal 26-192 [facility] Comment on above: Performed By: #### C MADM, LIPA, BNP, CMP #### [facility] [address] [place] [address] Dr. Tasha Dodson CK.MB [Mass/Vol] 2.43 ng/mL Normal <=3.60 [facility] Comment on above: Performed By: #### C MADM, LIPA, BNP, CMP #### [facility] [address] [place] [address] Dr. Tasha Dodson HSTROP 12.2 pg/mL Normal 4.0-51.3 [facility] Comment on above: Result Comment: CUT- OFF POINTS HAVE BEEN ESTABLISHED BASED ON THE FOURTH UNIVERSAL DEFINITIONS OF MYOCARDIAL INFARCTION. THE UPPER REFERENCE LIMIT (URL) OF TROPONIN, DEFINED THE 99TH PERCENTILE OF cTnI DISTRIBUTION IN A REFERENCE POPULATION, HAS BEEN CONFIRMED THE DECISION THRESHOLD FOR MO DIAGNOSIS. Performed By: #### C MADM, LIPA, BNP, CMP #### [facility] [address] [place] [address] Dr. Tasha Dodson ELIZABETH 110 ng/mL Critically high 9-82 [facility] Comment on above: Performed By: #### C MADM, LIPA, BNP, CMP #### [facility] [address] [place] [address] Dr. Tasha Dodson CBC AUTO DIFFon 12-26-2021 BASO # 0.0 103/ul Normal 0.0-0.1 [facility] Comment on above: Performed By: #### C MADM, LIPA, BNP, CMP #### [facility] [address] [place] [address] Dr. Tasha Dodson Basophils/100 WBC (Bld) 0.3 % Normal 0.2-2.0 [facility] Comment on above: Performed By: #### C MADM, LIPA, BNP, CMP #### [facility] [address] [address] [address] Tasha Dodson EO # 0.1 103/ul Normal 0.0-0.7 [facility] Comment on above: Performed By: #### C MADM, LIPA, BNP, CMP #### [facility] [address] [place] [address] Dr. Tasha Dodson Eosinophils/100 WBC (Bld) 0.7 % Critically low 0.9-7.0 [facility] Comment on above: Performed By: #### C MADM, LIPA, BNP, CMP #### [facility] [address] [place] [address] Dr. Tasha Dodson Erythrocyte distribution width (RBC) [Ratio] 12.4 % Normal 11.0-15.0 [facility] Comment on above: Performed By: #### C MADM, LIPA, BNP, CMP #### [facility] [address] [place] [address] Dr. Tasha Dodson Hematocrit (Bld) [Volume fraction] 38.9 % Normal 36.0-48.0 [facility] Comment on above: Performed By: #### C MADM, LIPA, BNP, CMP #### [facility] [address] [place] [address] Dr. Tasha Dodson Hemoglobin (Bld) [Mass/Vol] 14.4 g/dL Normal 12.0-16.0 [facility] Comment on above: Performed By: #### C MADM, LIPA, BNP, CMP #### [facility] [address] [place] [address] Dr. Tasha Dodson IG # 0.08 10e3/ul Critically high 0.00-0.03 [facility] Comment on above: Performed By: #### C MADM, LIPA, BNP, CMP #### [facility] [address] [place] [address] Dr. Tasha Dodson IG % 0.5 % Normal 0.0-0.5 [facility] Comment on above: Performed By: #### C MADM, LIPA, BNP, CMP #### [facility] [address] [place] [address] Dr. Tasha Dodson LYMPH # 2.2 103/ul Normal 1.2-3.8 [facility] Comment on above: Performed By: #### C MADM, LIPA, BNP, CMP #### [facility] [address] [place] [address] Dr. Tasha Dodson Lymphocytes/100 WBC (Bld) 15.0 % Critically low 20.5-60.0 [facility] Comment on above: Performed By: #### C MADM, LIPA, BNP, CMP #### [facility] [address] [place] [address] Dr. Tasha Dodson MANUAL DIFF REQ NO Normal [facility] Comment on above: Performed By: #### C MADM, LIPA, BNP, CMP #### [facility] [address] [place] [address] Dr. Tasha Dodson MCH (RBC) [Entitic mass] 31.6 pg Normal 26.7-34.0 [facility] Comment on above: Performed By: #### C MADM, LIPA, BNP, CMP #### [facility] [address] [place] [address] Dr. Tasha Dodson MCHC (RBC) [Mass/Vol] 37.0 g/dL Critically high 29.9-35.2 [facility] Comment on above: Performed By: #### C MADM, LIPA, BNP, CMP #### [facility] [address] [place] [address] Dr. Tasha Dodson MCV (RBC) [Entitic vol] 85.3 fL Normal 81.0-99.0 [facility] Comment on above: Performed By: #### C MADM, LIPA, BNP, CMP #### [facility] [address] [place] [address] Dr. Tasha Dodson MONO # 1.0 103/ul Critically high 0.3-0.8 [facility] Comment on above: Performed By: #### C MADM, LIPA, BNP, CMP #### [facility] [address] [place] [address] Dr. Tasha Dodson Monocytes/100 WBC (Bld) 6.8 % Normal 1.7-12.0 [facility] Comment on above: Performed By: #### C MADM, LIPA, BNP, CMP #### [facility] [address] [place] [address] Dr. Tasha Dodson NEUT # 11.5 103/ul Critically high 1.4-6.5 [facility] Comment on above: Performed By: #### C MADM, LIPA, BNP, CMP #### [facility] [address] [place] [address] Dr. Tasha Dodson Neutrophils/100 WBC (Bld) 76.7 % Critically high 43.0-75.0 [facility] Comment on above: Performed By: #### C MADM, LIPA, BNP, CMP #### [facility] [address] [place] [address] Dr. Tasha Dodson Platelet mean volume (Bld) [Entitic vol] 8.6 fL Critically low 9.5-13.5 [facility] Comment on above: Performed By: #### C MADM, LIPA, BNP, CMP #### [facility] [address] [place] [address] Dr. Tasha Dodson PLT 491 103/ul Critically high 150-[address] [facility] Comment on above: Performed By: #### C MADM, LIPA, BNP, CMP #### [facility] [address] [place] [address] Dr. Tasha Dodson RBC 4.56 106/ul Normal 4.20-5.40 [facility] Comment on above: Performed By: #### C MADM, LIPA, BNP, CMP #### [facility] [address] [place] [address] Dr. Tasha Dodson WBC 15.0 103/ul Critically high 4.0-11.0 [facility] Comment on above: Performed By: #### C MADM, LIPA, BNP, CMP #### [facility] [address] [place] [address] Dr. Tasha Dodson CULTURE URINEon 12-26-2021 CULTURE URINE Culture Observations : LIGHT GROWTH OF MIXED GENITAL AMADOU. NO POTENTIAL PATHOGENS SEEN. Normal [facility] Comment on above: Performed By: #### C BC #### [facility] [address] [place] [address] Dr. Tasha Dodson Covid-19 PCR (CVDTB)on SARS-CoV-2 (COVID-19) RNA CARITO+probe Ql (Unsp spec) Not detected Normal NOT DETECTED [facility] Comment on above: Result Comment: When [...] for this test is supported by the Neuropsychologist of Health and Human Service's declaration that [...] MADM, LIPA, BNP, CMP #### [facility] [address] [place] [address] Dr. Tasha Dodson ER URINE PROFILEon 2 Bilirubin Ql (U) Negative Normal NEGATIVE [facility] Comment on above: Performed By: #### T SH, BMP #### [facility] [address] [place] [address] Dr. Tasha Dodson Clarity (U) CLEAR Normal CLEAR [facility] Comment on above: Performed By: #### T SH, BMP #### [facility] [address] [place] [address] Dr. Tasha Dodson Color (U) LT. YELLOW Normal YELLOW [facility] Comment on above: Performed By: #### T SH, BMP #### [facility] [address] [place] [address] Dr. Tasha Dodson ERUAHD A micrscopic examination will be performed if indicated. Normal [facility] Comment on above: Performed By: #### T SH, BMP #### [facility] [address] [place] [address] Dr. Tasha Dodson Glucose Ql (U) Negative Normal NEGATIVE [facility] Comment on above: Performed By: #### T SH, BMP #### [facility] [address] [place] [address] Dr. Tasha Dodson Hemoglobin Ql (U) TRACE-INTACT Abnormal NEGATIVE [facility] Comment on above: Performed By: #### T SH, BMP #### [facility] [address] [place] [address] Dr. Tasha Dodson Ketones Ql (U) TRACE Abnormal NEGATIVE [facility] Comment on above: Performed By: #### T SH, BMP #### [facility] [address] [place] [address] Dr. Tasha Dodson LEUKOCYTES Negative Normal NEGATIVE [facility] Comment on above: Performed By: #### T SH, BMP #### [facility] [address] [place] [address] Dr. Tasha Dodson Nitrite Ql (U) Negative Normal NEGATIVE [facility] Comment on above: Performed By: #### T SH, BMP #### [facility] [address] [place] [address] Dr. Tasha Dodson pH (U) 7.0 [pH] Normal 5-9 [facility] Comment on above: Performed By: #### T SH, BMP #### [facility] [address] [place] [address] Dr. Tasha Dodson SPEC GRAVITY 1.010 Normal 1.005-<=1.0 25 [facility] Comment on above: Performed By: #### T SH, BMP #### [facility] [address] [place] [address] Dr. Tasha Dodson UA PROTEIN Negative Normal NEGATIVE/ TRACE [facility] Comment on above: Performed By: #### T SH, BMP #### [facility] [address] [place] [address] Dr. Tasha Dodson UR MICRO IND INDICATED Normal [facility] Comment on above: Performed By: #### T SH, BMP #### [facility] [address] [place] [address] Dr. Tasha Dodson Urobilinogen Qn (U) 0.2 {Juan'U}/dL Normal 0.2 - 1. 0 [facility] Comment on above: Performed By: #### T SH, BMP #### [facility] [address] [place] [address] Dr. Tasha Dodson INFLUENZA A AND B AGon 12-26 INFLUANEGH SEE BELOW Normal [facility] Comment on above: Result Comment: Nega tive for Flu A protein angiten. Infection due to Flu A cannot be ruled out. Flu A angiten in the sample may be below the detection limit of the test. Performed By: #### C BC #### [facility] [address] [place] [address] Dr. Tasha Dodson INFLUBNEG SEE BELOW Normal [facility] Comment on above: Result Comment: Nega tive for Flu B protein antigen. Infection due to Flu B cannot be ruled out. Flu B antigen in the sample may be below the detection limit of the test. Performed By: #### C BC #### [facility] [address] [place] [address] Dr. Tasha Dodson INFLUENZA A AG Negative Normal NEGATIVE SEE COMMENT [facility] Comment on above: Performed By: #### C BC #### [facility] [address] [place] [address] Dr. Tasha Dodson INFLUENZA B AG Negative Normal NEGATIVE SEE COMMENT [facility] Comment on above: Performed By: #### C BC #### [facility] [address] [place] [address] Dr. Tasha Dodson INTERNAL CONTROLS Within Normal Limits Normal Wi thin Normal Limits [facility] Comment on above: Performed By: #### C BC #### [facility] [address] [place] [address] Dr. Tasha Dodson LACTATE/LACTIC ACIDon 2021 Lactate [Moles/Vol] 1.5 mmol/L Normal 0.4-1.9 [facility] Comment on above: Performed By: #### T SH, BMP #### [facility] [address] [place] [address] Dr. Tasha Dodson LIPASEon 12-26-2021 Lipase [Catalytic activity/Vol] 96.0 U/L Normal 73.0-393.0 [facility] Comment on above: Performed By: #### C MADM, LIPA, BNP, CMP #### [facility] [address] [place] [address] Dr. Tasha Dodson PROF 14(COMP METB)on 11-06-2 022 Albumin [Mass/Vol] 4.2 g/dL Normal 3.4-5.0 [facility] Comment on above: Performed By: #### C MADM, LIPA, BNP, CMP #### [facility] [address] [address] [address] Tasha Dodson Albumin/Globulin [Mass ratio] 1.1 {ratio} Normal [facility] Comment on above: Performed By: #### C MADM, LIPA, BNP, CMP #### [facility] [address] [place] [address] Dr. Tasha Dodson ALP [Catalytic activity/Vol] 68 U/L Normal 46-116 [facility] Comment on above: Performed By: #### C MADM, LIPA, BNP, CMP #### [facility] [address] [place] [address] Dr. Tasha Dodson ALT [Catalytic activity/Vol] 23 U/L Normal 14-59 [facility] Comment on above: Performed By: #### C MADM, LIPA, BNP, CMP #### [facility] [address] [place] [address] Dr. Tasha Dodson Anion gap [Moles/Vol] 12.3 mmol/L Normal [facility] Comment on above: Performed By: #### C MADM, LIPA, BNP, CMP #### [facility] [address] [place] [address] Dr. Tasha Dodson AST [Catalytic activity/Vol] 25 U/L Normal 15-37 [facility] Comment on above: Performed By: #### C MADM, LIPA, BNP, CMP #### [facility] [address] [place] [address] Dr. Tasha Dodson Bilirubin [Mass/Vol] 0.7 mg/dL Normal 0.2-1.0 [facility] Comment on above: Performed By: #### C MADM, LIPA, BNP, CMP #### [facility] [address] [place] [address] Dr. Tasha Dodson Calcium [Mass/Vol] 9.5 mg/dL Normal 8.5-10.1 [facility] Comment on above: Performed By: #### C MADM, LIPA, BNP, CMP #### [facility] [address] [address] [address] Tasha Dodson Chloride [Moles/Vol] 80 mmol/L Critically low 98-107 [facility] Comment on above: Performed By: #### C MADM, LIPA, BNP, CMP #### [facility] [address] [address] [address] Tasha Dodson CO2 [Moles/Vol] 27.1 mmol/L Normal 21.0-32.0 [facility] Comment on above: Performed By: #### C MADM, LIPA, BNP, CMP #### [facility] [address] [place] [address] Dr. Tasha Dodson Creatinine [Mass/Vol] 0.85 mg/dL Normal 0.55-1.02 [facility] Comment on above: Performed By: #### C MADM, LIPA, BNP, CMP #### [facility] [address] [address] [address] Tasha Dodson EGFR-AF MOSOTHO >60 Normal >=60 [facility] Comment on above: Performed By: #### C MADM, LIPA, BNP, CMP #### [facility] [address] [place] [address] Dr. Tasha Dodson EGFR-NON AF MOSOTHO >60 Normal >=60 [facility] Comment on above: Performed By: #### C MADM, LIPA, BNP, CMP #### [facility] [address] [address] [address] Tasha Dodson Globulin (S) [Mass/Vol] 3.9 g/dL Normal [facility] Comment on above: Performed By: #### C MADM, LIPA, BNP, CMP #### [facility] [address] [place] [address] Dr. Tasha Dodson Glucose [Mass/Vol] 132 mg/dL Critically high 74-106 [facility] Comment on above: Performed By: #### C MADM, LIPA, BNP, CMP #### [facility] [address] [place] [address] Dr. Tasha Dodson Potassium [Moles/Vol] 2.4 mmol/L Critically low 3.5-5.1 [facility] Comment on above: Performed By: #### C MADM, LIPA, BNP, CMP #### [facility] [address] [place] [address] Dr. Tasha Dodson Protein [Mass/Vol] 8.1 g/dL Normal 6.4-8.2 [facility] Comment on above: Performed By: #### C MADM, LIPA, BNP, CMP #### [facility] [address] [place] [address] Dr. Tasha Dodson Sodium [Moles/Vol] 116 mmol/L Critically low 136-145 [facility] Comment on above: Performed By: #### C MADM, LIPA, BNP, CMP #### [facility] [address] [place] [address] Dr. Tasha Dodson Urea nitrogen [Mass/Vol] 12.0 mg/dL Normal 7.0-18.0 [facility] Comment on above: Performed By: #### C MADM, LIPA, BNP, CMP #### [facility] [address] [place] [address] Dr. Tasha Dodson Urea nitrogen/Creatinine [Mass ratio] 14.1 mg/mg Normal [facility] Comment on above: Performed By: #### C MADM, LIPA, BNP, CMP #### [facility] [address] [place] [address] Dr. Tasha Dodson PROF CHEM 8 (BAS METB)on Anion gap [Moles/Vol] 11.4 mmol/L Normal [facility] Comment on above: Performed By: #### T SH, BMP #### [facility] [address] [place] [address] Dr. Tasha Dodson Calcium [Mass/Vol] 8.4 mg/dL Critically low 8.5-10.1 [facility] Comment on above: Performed By: #### T SH, BMP #### [facility] [address] [place] [address] Dr. Tasha Dodson Chloride [Moles/Vol] 89 mmol/L Critically low 98-107 [facility] Comment on above: Performed By: #### T SH, BMP #### [facility] [address] [address] [address] Tasha Dodsno CO2 [Moles/Vol] 25.5 mmol/L Normal 21.0-32.0 [facility] Comment on above: Performed By: #### T SH, BMP #### [facility] [address] [place] [address] Dr. Tasha Dodson Creatinine [Mass/Vol] 0.89 mg/dL Normal 0.55-1.02 [facility] Comment on above: Performed By: #### T SH, BMP #### [facility] [address] [place] [address] Dr. Tasha Dodson EGFR-AF MOSOTHO >60 Normal >=60 [facility] Comment on above: Performed By: #### T JESI, BMP #### [facility] [address] [place] [address] Dr. Tasha Dodson EGFR-NON AF MOSOTHO 60 mL/min/1.73m2 Normal >=60 [facility] Comment on above: Performed By: #### T SH, BMP #### [facility] [address] [place] [address] Dr. Tasha Dodson Glucose [Mass/Vol] 166 mg/dL Critically high 74-106 [facility] Comment on above: Performed By: #### T JESI, BMP #### [facility] [address] [place] [address] Dr. Tasha Dodson Potassium [Moles/Vol] 3.0 mmol/L Critically low 3.5-5.1 [facility] Comment on above: Performed By: #### T SH, BMP #### [facility] [address] [place] [address] Dr. Tasha Dodson Sodium [Moles/Vol] 123 mmol/L Critically low 136-145 [facility] Comment on above: Performed By: #### T SH, BMP #### [facility] [address] [place] [address] Dr. Tasha Dodson Urea nitrogen [Mass/Vol] 9.0 mg/dL Normal 7.0-18.0 [facility] Comment on above: Performed By: #### T JESI, BMP #### [facility] [address] [place] [address] Dr. Tasha Dodson Urea nitrogen/Creatinine [Mass ratio] 10.1 mg/mg Normal [facility] Comment on above: Performed By: #### T JESI, BMP #### [facility] [address] [place] [address] Dr. Tasha Dodson PROTIMEon 12-26-2021 INR Coag (PPP) [Relative time] 0.96 {INR} Normal [facility] Comment on above: Performed By: #### T JESI, BMP #### [facility] [address] [place] [address] Dr. Tasha Dodson INR GUIDELINES SEE BELOW Normal [facility] Comment on above: Result Comment: JO RED INR: 2.0 - 3.0 CONDITIONS NOT LISTED BELOW 2.5 - 3.5 FOR PROSTHETIC HEART VALVE REPLACEMENT 2.5 - 3.5 RECURRENT THROMBOSIS Performed By: #### T JESI, BMP #### [facility] [address] [place] [address] Dr. Tasha Dodson PT Coag (PPP) [Time] 10.4 s Normal 9.0-11.6 [facility] Comment on above: Performed By: #### T JESI, BMP #### [facility] [address] [place] [address] Dr. Tasha Dodson PTTon 12-26-2021 aPTT Coag (Bld) [Time] 26.2 s Normal 22.3-36.2 [facility] Comment on above: Performed By: #### T JESI, BMP #### [facility] [address] [place] [address] Dr. Tasha Dodson SODIUM RANDOM URINEon 2021 Sodium (U) [Moles/Vol] 71 mmol/L Normal 30-90 [facility] Comment on above: Performed By: #### T JESI, BMP #### [facility] [address] [place] [address] Dr. Tasha Dodson T4on 12-26-2021 T4 [Mass/Vol] 10.60 ug/dL Normal 4.80-13.90 [facility] Comment on above: Performed By: #### C BC #### [facility] [address] [place] [address] Dr. Tasha Dodson TSHon 12-26-2021 TSH 5.236 uIU/mL Critically high 0.358-3.740 [facility] Comment on above: Performed By: #### C BC #### [facility] [address] [place] [address] Dr. Tasha Dodson URINE MICROSCOPIC ONLYon BACTERIA TRACE Abnormal NONE SEEN [facility] Comment on above: Performed By: #### T SH, BMP #### [facility] [address] [place] [address] Dr. Tasha Dodson Bacteria identified Cx Nom (U) NOT INDICATED Normal [facility] Comment on above: Performed By: #### T SH, BMP #### [facility] [address] [place] [address] Dr. Tasha Dodson CAST NONE SEEN Normal NONE SEEN [facility] Comment on above: Performed By: #### T SH, BMP #### [facility] [address] [place] [address] Dr. Tasha Dodson Crystals LM Nom (Urine sed) NONE SEEN Normal NONE SEEN [facility] Comment on above: Performed By: #### T SH, BMP #### [facility] [address] [place] [address] Dr. Tasha Dodson Epithelial cells LM Ql (Urine sed) NONE SEEN Normal NONE SEEN /RARE [facility] Comment on above: Performed By: #### T SH, BMP #### [facility] [address] [place] [address] Dr. Tasha Dodson MUCOUS NONE SEEN Normal NONE SEEN [facility] Comment on above: Performed By: #### T SH, BMP #### [facility] [address] [place] [address] Dr. Tasha Dodson RBC 0-2 Normal 0-2 [facility] Comment on above: Performed By: #### T JESI, BMP #### [facility] [address] [address] [address] Tasha Dodson WBC 0-2 Abnormal NONE SEEN [facility] Comment on above: Performed By: #### T SH, BMP #### [facility] [address] [address] [address] Tasha Dodson XR CHEST 1 Von [...] Date: 2021-12-26 11:32 Normal [facility] XR LSPINE MIN 4 VIEWSon 11-20 [...] JESUS BRUNO Date: 2021-11-30 22:52 Normal [facility] CBC AUTO DIFFon 11-09-2021 BASO # 0.1 103/ul Normal 0.0-0.1 [facility] Comment on above: Performed By: #### C MADM, LIPA, BNP, CMP #### [facility] [address] [address] [address] Tasha Dodson Basophils/100 WBC (Bld) 0.7 % Normal 0.2-2.0 [facility] Comment on above: Performed By: #### C MADM, LIPA, BNP, CMP #### [facility] [address] [place] [address] Dr. Tasha Dodson EO # 0.2 103/ul Normal 0.0-0.7 [facility] Comment on above: Performed By: #### C MADM, LIPA, BNP, CMP #### [facility] [address] [place] [address] Dr. Tasha Dodson Eosinophils/100 WBC (Bld) 1.8 % Normal 0.9-7.0 [facility] Comment on above: Performed By: #### C MADM, LIPA, BNP, CMP #### [facility] [address] [place] [address] Dr. Tasha Dodson Erythrocyte distribution width (RBC) [Ratio] 13.0 % Normal 11.0-15.0 [facility] Comment on above: Performed By: #### C MADM, LIPA, BNP, CMP #### [facility] [address] [place] [address] Dr. Tasha Dodson Hematocrit (Bld) [Volume fraction] 33.8 % Critically low 36.0-48.0 [facility] Comment on above: Performed By: #### C MADM, LIPA, BNP, CMP #### [facility] [address] [place] [address] Dr. Tasha Dodson Hemoglobin (Bld) [Mass/Vol] 12.5 g/dL Normal 12.0-16.0 [facility] Comment on above: Performed By: #### C MADM, LIPA, BNP, CMP #### [facility] [address] [place] [address] Dr. Tasha Dodson IG # 0.02 10e3/ul Normal 0.00-0.03 [facility] Comment on above: Performed By: #### C MADM, LIPA, BNP, CMP #### [facility] [address] [place] [address] Dr. Tasha Dodson IG % 0.2 % Normal 0.0-0.5 [facility] Comment on above: Performed By: #### C MADM, LIPA, BNP, CMP #### [facility] [address] [place] [address] Dr. Tasha Dodson LYMPH # 2.9 103/ul Normal 1.2-3.8 [facility] Comment on above: Performed By: #### C MADM, LIPA, BNP, CMP #### [facility] [address] [place] [address] Dr. Tasha Dodson Lymphocytes/100 WBC (Bld) 29.4 % Normal 20.5-60.0 [facility] Comment on above: Performed By: #### C MADM, LIPA, BNP, CMP #### [facility] [address] [place] [address] Dr. Tasha Dodson MANUAL DIFF REQ NO Normal [facility] Comment on above: Performed By: #### C MADM, LIPA, BNP, CMP #### [facility] [address] [place] [address] Dr. Tasha Dodson MCH (RBC) [Entitic mass] 34.1 pg Critically high 26.7-34.0 [facility] Comment on above: Performed By: #### C MADM, LIPA, BNP, CMP #### [facility] [address] [place] [address] Dr. Tasha Dodson MCHC (RBC) [Mass/Vol] 37.0 g/dL Critically high 29.9-35.2 [facility] Comment on above: Performed By: #### C MADM, LIPA, BNP, CMP #### [facility] [address] [place] [address] Dr. Tasha Dodson MCV (RBC) [Entitic vol] 92.1 fL Normal 81.0-99.0 [facility] Comment on above: Performed By: #### C MADM, LIPA, BNP, CMP #### [facility] [address] [place] [address] Dr. Tasha Dodson MONO # 0.8 103/ul Normal 0.3-0.8 [facility] Comment on above: Performed By: #### C MADM, LIPA, BNP, CMP #### [facility] [address] [place] [address] Dr. Tasha Dodson Monocytes/100 WBC (Bld) 8.2 % Normal 1.7-12.0 [facility] Comment on above: Performed By: #### C MADM, LIPA, BNP, CMP #### [facility] [address] [place] [address] Dr. Tasha Dodson NEUT # 5.9 103/ul Normal 1.4-6.5 [facility] Comment on above: Performed By: #### C MADM, LIPA, BNP, CMP #### [facility] [address] [place] [address] Dr. Tasha Dodson Neutrophils/100 WBC (Bld) 59.7 % Normal 43.0-75.0 [facility] Comment on above: Performed By: #### C MADM, LIPA, BNP, CMP #### [facility] [address] [place] [address] Dr. Tasha Dodson Platelet mean volume (Bld) [Entitic vol] 8.9 fL Critically low 9.5-13.5 [facility] Comment on above: Performed By: #### C MADM, LIPA, BNP, CMP #### [facility] [address] [place] [address] Dr. Tasha Dodson PLT 370 103/ul Normal 150-450 [facility] Comment on above: Performed By: #### C MADM, LIPA, BNP, CMP #### [facility] [address] [place] [address] Dr. Tasha Dodson RBC 3.67 106/ul Critically low 4.20-5.[address] [facility] Comment on above: Performed By: #### C MADM, LIPA, BNP, CMP #### [facility] [address] [place] [address] Dr. Tasha Dodson WBC 9.9 103/ul Normal 4.0-11.0 [facility] Comment on above: Performed By: #### C MADM, LIPA, BNP, CMP #### [facility] [address] [place] [address] Dr. Tasha Dodson FREE T4on 11-09-2021 Free T4 [Mass/Vol] 1.48 ng/dL Critically high 0.76-1.46 [facility] Comment on above: Performed By: #### F T4 #### [facility] [address] [place] [address] Dr. Tasha Dodson PROF CHEM 8 (BAS METB)on Anion gap [Moles/Vol] 11.1 mmol/L Normal [facility] Comment on above: Performed By: #### T SH, BMP #### [facility] [address] [place] [address] Dr. Tasha Dodson Calcium [Mass/Vol] 9.3 mg/dL Normal 8.5-10.1 [facility] Comment on above: Performed By: #### T SH, BMP #### [facility] [address] [place] [address] Dr. Tasha Dodson Chloride [Moles/Vol] 92 mmol/L Critically low 98-107 [facility] Comment on above: Performed By: #### T SH, BMP #### [facility] [address] [place] [address] Dr. Tasha Dodson CO2 [Moles/Vol] 29.2 mmol/L Normal 21.0-32.0 [facility] Comment on above: Performed By: #### T SH, BMP #### [facility] [address] [place] [address] Dr. Tasha Dodson Creatinine [Mass/Vol] 0.68 mg/dL Normal 0.55-1.02 [facility] Comment on above: Performed By: #### T SH, BMP #### [facility] [address] [place] [address] Dr. Tasha Dodson EGFR-AF MOSOTHO >60 Normal >=60 [facility] Comment on above: Performed By: #### T SH, BMP #### [facility] [address] [place] [address] Dr. Tasha Dodson EGFR-NON AF MOSOTHO >60 Normal >=60 [facility] Comment on above: Performed By: #### T SH, BMP #### [facility] [address] [place] [address] Dr. Tasha Dodson Glucose [Mass/Vol] 109 mg/dL Critically high 74-106 [facility] Comment on above: Performed By: #### T SH, BMP #### [facility] [address] [place] [address] Dr. Tasha Dodson Potassium [Moles/Vol] 3.3 mmol/L Critically low 3.5-5.1 [facility] Comment on above: Performed By: #### T SH, BMP #### [facility] [address] [place] [address] Dr. Tasha Dodson Sodium [Moles/Vol] 129 mmol/L Critically low 136-145 [facility] Comment on above: Performed By: #### T JESI, BMP #### [facility] [address] [place] [address] Dr. Tasha Dodson Urea nitrogen [Mass/Vol] 9.0 mg/dL Normal 7.0-18.0 [facility] Comment on above: Performed By: #### T SH, BMP #### [facility] [address] [place] [address] Dr. Tasha Dodson Urea nitrogen/Creatinine [Mass ratio] 13.2 mg/mg Normal [facility] Comment on above: Performed By: #### T JESI, BMP #### [facility] [address] [place] [address] Dr. Tasha Dodson TSHon 11-09-2021 TSH 1.193 uIU/mL Normal 0.358-3.740 [facility] Comment on above: Performed By: #### T SH, BMP #### [facility] [address] [place] [address] Dr. Tasha Dodson LIPID PROFILEon 08-06-2021 CHOL-HDL RATIO NORM SEE BELOW Normal [facility] Comment on above: Result Comment: 3.3 - 4.4 LOW RISK 4.4 - 7.1 AVERAGE RISK 7.1 - 11.0 MODERATE RISK >11.0 HIGH RISK Performed By: #### C MADM, LIPA, BNP, CMP #### [facility] [address] [address] [address] Tasha Dodson Cholesterol [Mass/Vol] 198 mg/dL Normal <=200 Th [facility] Comment on above: Performed By: #### C MADM, LIPA, BNP, CMP #### [facility] [address] [address] [address] Tasha Dodson Cholesterol in HDL [Mass/Vol] 77 mg/dL Critically high 40-60 [facility] Comment on above: Performed By: #### C MADM, LIPA, BNP, CMP #### [facility] [address] [address] [address] Tasha Dodson Cholesterol in LDL [Mass/Vol] 106.0 mg/dL Normal [facility] Comment on above: Performed By: #### C MADM, LIPA, BNP, CMP #### [facility] [address] [address] [address] Tasha Dodson Cholesterol.total/Shahana sterol in HDL [Mass ratio] 2.6 {ratio} Normal [facility] Comment on above: Performed By: #### C MADM, LIPA, BNP, CMP #### [facility] [address] [address] [address] Tasha Dodson HDL NORMAL > or = 60 mg/dl - LO W CARDIOVASCULAR RISK <40 mg/dl - HIGH CARDIOVASCULAR RISK Normal [facility] Comment on above: Performed By: #### C MADM, LIPA, BNP, CMP #### [facility] [address] [address] [address] Tasha Dodson LDL CALC NORMAL SEE BELOW Normal [facility] Comment on above: Result Comment: <100 mg/dl OPTIMAL 100 - 129 mg/dl NEAR OR ABOVE OPTIMAL 130 - 159 mg/dl BORDERLINE HIGH 160 - 189 mg/dl HIGH >190 mg/dl VERY HIGH Performed By: #### C MADM, LIPA, BNP, CMP #### [facility] [address] [address] [address] Tasha Dodson Triglyceride [Mass/Vol] 75 mg/dL Normal <=150 T [facility] Comment on above: Performed By: #### C MADM, LIPA, BNP, CMP #### [facility] [address] [address] [address] Tasha Dodson VLDL CALC 15.0 mg/dL Normal [facility] Comment on above: Performed By: #### C MADM, LIPA, BNP, CMP #### [facility] [address] [place] [address] Dr. Tasha Dodson LIVER PROFILEon 08-06-2021 Albumin [Mass/Vol] 3.7 g/dL Normal 3.4-5.0 [facility] Comment on above: Performed By: #### C MADM, LIPA, BNP, CMP #### [facility] [address] [place] [address] Dr. Tasha Dodson Albumin/Globulin [Mass ratio] 1.0 {ratio} Normal [facility] Comment on above: Performed By: #### C MADM, LIPA, BNP, CMP #### [facility] [address] [place] [address] Dr. Tasha Dodson ALP [Catalytic activity/Vol] 62 U/L Normal 46-116 [facility] Comment on above: Performed By: #### C MADM, LIPA, BNP, CMP #### [facility] [address] [place] [address] Dr. Tasha Dodson ALT [Catalytic activity/Vol] 26 U/L Normal 14-59 [facility] Comment on above: Performed By: #### C MADM, LIPA, BNP, CMP #### [facility] [address] [place] [address] Dr. Tasha Dodson AST [Catalytic activity/Vol] 24 U/L Normal 15-37 [facility] Comment on above: Performed By: #### C MADM, LIPA, BNP, CMP #### [facility] [address] [place] [address] Dr. Tasha Dodson BILI, CONJUGATED 0.1 mg/dL Normal 0.0-0.2 [facility] Comment on above: Performed By: #### C MADM, LIPA, BNP, CMP #### [facility] [address] [place] [address] Dr. Tasha Dodson Bilirubin [Mass/Vol] 0.5 mg/dL Normal 0.2-1.0 [facility] Comment on above: Performed By: #### C MADM, LIPA, BNP, CMP #### [facility] [address] [place] [address] Dr. Tasha Dodson Globulin (S) [Mass/Vol] 3.8 g/dL Normal [facility] Comment on above: Performed By: #### C MADM, LIPA, BNP, CMP #### [facility] [address] [place] [address] Dr. Tasha Dodson Protein [Mass/Vol] 7.5 g/dL Normal 6.4-8.2 [facility] Comment on above: Performed By: #### C MADM, LIPA, BNP, CMP #### [facility] [address] [place] [address] Dr. Tasha Dodson FREE T4on 07-28-2021 Free T4 [Mass/Vol] 1.32 ng/dL Normal 0.76-1.46 [facility] Comment on above: Performed By: #### T SH, BMP #### [facility] [address] [place] [address] Dr. Tasha Dodson PROF CHEM 8 (BAS METB)on Anion gap [Moles/Vol] 11.6 mmol/L Normal [facility] Comment on above: Performed By: #### B MP, TSH #### [facility] [address] [place] [address] Dr. Tasha Dodson Calcium [Mass/Vol] 9.4 mg/dL Normal 8.5-10.1 [facility] Comment on above: Performed By: #### B MP, TSH #### [facility] [address] [place] [address] Dr. Tasha Dodson Chloride [Moles/Vol] 93 mmol/L Critically low 98-107 [facility] Comment on above: Performed By: #### B MP, TSH #### [facility] [address] [address] [address] Tasha Dodson CO2 [Moles/Vol] 29.8 mmol/L Normal 21.0-32.0 [facility] Comment on above: Performed By: #### B MP, TSH #### [facility] [address] [address] [address] Tasha Dodson Creatinine [Mass/Vol] 0.74 mg/dL Normal 0.55-1.02 [facility] Comment on above: Performed By: #### B MP, TSH #### [facility] [address] [address] [address] Tasha Dodson EGFR-AF MOSOTHO >60 Normal >=60 [facility] Comment on above: Performed By: #### B MP, TSH #### [facility] [address] [place] [address] Dr. Tasha Dodson EGFR-NON AF MOSOTHO >60 Normal >=60 [facility] Comment on above: Performed By: #### B MP, TSH #### [facility] [address] [place] [address] Dr. Tasha Dodson Glucose [Mass/Vol] 114 mg/dL Critically high 74-106 T [facility] Comment on above: Performed By: #### B MP, TSH #### [facility] [address] [place] [address] Dr. Tasha Dodson Potassium [Moles/Vol] 3.4 mmol/L Critically low 3.5-5.1 [facility] Comment on above: Performed By: #### B MP, TSH #### [facility] [address] [place] [address] Dr. Tasha Dodson Sodium [Moles/Vol] 131 mmol/L Critically low 136-145 Th [facility] Comment on above: Performed By: #### B MP, TSH #### [facility] [address] [place] [address] Dr. Tasha Dodson Urea nitrogen [Mass/Vol] 12.0 mg/dL Normal 7.0-18.0 [facility] Comment on above: Performed By: #### B MP, TSH #### [facility] [address] [address] [address] Tasha Dodson Urea nitrogen/Creatinine [Mass ratio] 16.2 mg/mg Normal [facility] Comment on above: Performed By: #### B MP, TSH #### [facility] [address] [place], [place] [address] Dr. Tasha Dodson TSHon 07-28-2021 TSH 1.790 uIU/mL Normal 0.358-3.740 [facility] Comment on above: Performed By: #### B MP, TSH #### [facility] [address] [address] [address] Tasha Dodson TSH RANGE SEE BELOW Normal [facility] Comment on above: Result Comment: <0.3 4 UIU/ml HYPERTHYROID 0.34-5.60 UIU/ml EUTHYROID >5.60 UIU/ml HYPOTHYROID Performed By: #### B MP, TSH #### [facility] [address] [address] [address] Tasha Dodson CBC Auto Differentialon 10-0 Basophils (Bld) [#/Vol] 0.1 10*3/uL 0 - 0.2 K/uL [place] Basophils/100 WBC (Bld) 1.1 % [place] Eosinophils (Bld) [#/Vol] 0.2 10*3/uL 0 - 0.7 K/uL [place] Eosinophils/100 WBC (Bld) 1.4 % [place] Erythrocyte distribution width (RBC) [Ratio] 14.4 % 11.5 - 14.5 % [place] Hematocrit (Bld) [Volume fraction] 33.6 % Low 37 - 47 % [place] Hemoglobin (Bld) [Mass/Vol] 11.1 g/dL Low 12 - 16 g/dL [place] Interpretation and review of laboratory results Abnormal [place] Lymphocytes (Bld) [#/Vol] 2.3 10*3/uL 1 - 4.8 K/uL [place] Lymphocytes/100 WBC (Bld) 18.0 % [place] MCH (RBC) [Entitic mass] 29.5 pg 27 - 31.3 pg [place] MCHC (RBC) [Mass/Vol] 33.0 % 33 - 37 % [place] MCV (RBC) [Entitic vol] 89.5 fL 82 - 100 fL [place] Monocytes (Bld) [#/Vol] 0.9 10*3/uL High 0.2 - 0.8 K/uL [place] Monocytes/100 WBC (Bld) 6.9 % [place] Neutrophils Absolute 9.1 K/uL High 1.4 - 6 .5 K/uL [place] Neutrophils/100 WBC (Bld) 72.6 % [place] Platelets (Bld) [#/Vol] 548 10*3/uL High 130 - 400 K/uL [place] RBC (Bld) [#/Vol] 3.75 10*6/uL Low [place] WBC (Bld) [#/Vol] 12.5 10*3/uL High 4.8 - 10.8 K/uL [place] CBC With Platelet and Differ entialon 11-20-2018 Basophils (Bld) [#/Vol] 0.1 10*3/uL Normal 0.0-0.2 [facility] Comment on above: Performed By: #### E SR #### [facility] [address] [place] [address] Basophils/100 WBC (Bld) 1.1 % Normal [facility] Comment on above: Performed By: #### E SR #### [facility] [address] [place] [address] Eosinophils (Bld) [#/Vol] 0.2 10*3/uL Normal 0.0-0.7 [facility] Comment on above: Performed By: #### E SR #### [facility] [address] [place] [address] Eosinophils/100 WBC (Bld) 1.4 % Normal [facility] Comment on above: Performed By: #### E SR #### [facility] [address] [place] [address] Erythrocyte distribution width (RBC) [Ratio] 14.4 % Normal 11.5-14.5 [facility] Comment on above: Performed By: #### E SR #### [facility] [address] [place] [address] Hematocrit (Bld) [Volume fraction] 33.6 % Low 37.0-47.0 [facility] Comment on above: Performed By: #### E SR #### [facility] [address] [place] [address] Hemoglobin (Bld) [Mass/Vol] 11.1 g/dL Low 12.0-16.0 [facility] Comment on above: Performed By: #### E SR #### [facility] [address] [place] [address] Lymphocytes (Bld) [#/Vol] 2.3 10*3/uL Normal 1.0-4.8 [facility] Comment on above: Performed By: #### E SR #### [facility] [address] [place] [address] Lymphocytes/100 WBC (Bld) 18.0 % Normal [facility] Comment on above: Performed By: #### E SR #### [facility] [address] [place] [address] MCH (RBC) [Entitic mass] 29.5 pg Normal 27.0-31.3 [facility] Comment on above: Performed By: #### E SR #### [facility] [address] [place] [address] MCHC (RBC) [Mass/Vol] 33.0 % Normal 33.0-37.0 [facility] Comment on above: Performed By: #### E SR #### [facility] [address] [place] [address] MCV (RBC) [Entitic vol] 89.5 fL Normal 82.0-100.0 [facility] Comment on above: Performed By: #### E SR #### [facility] [address] [place] [address] Monocytes (Bld) [#/Vol] 0.9 10*3/uL Critically high 0.2-0. 8 [facility] Comment on above: Performed By: #### E SR #### [facility] [address] [place] [address] Monocytes/100 WBC (Bld) 6.9 % Normal [facility] Comment on above: Performed By: #### E SR #### [facility] [address] [place] [address] Neutrophils (Bld) [#/Vol] 9.1 10*3/uL Critically high 1.4-6.5 [facility] Comment on above: Performed By: #### E SR #### [facility] [address] [place] [address] Neutrophils/100 WBC (Bld) 72.6 % Normal [facility] Comment on above: Performed By: #### E SR #### [facility] [address] [place] [address] Platelets (Bld) [#/Vol] 548 10*3/uL Critically high 130-40 0 [facility] Comment on above: Performed By: #### E SR #### [facility] [address] [place] [address] RBC (Bld) [#/Vol] 3.75 10*6/uL Low 4.20-5.40 [facility] Comment on above: Performed By: #### E SR #### [facility] [address] [place] [address] WBC (Bld) [#/Vol] 12.5 10*3/uL Critically high 4.8-10.8 [facility] Comment on above: Performed By: #### E SR #### [facility] [address] [place] [address] EKG 12 Leadon 11-20-2018 Atrial Rate 79 BPM [place] P Van 58 degrees [place] P-R Interval 176 ms [place] Q-T Interval 404 ms [place] QRS Duration 130 ms [place] QTc Calculation ([place]azett) 463 ms [place] R Van -11 degrees [facility], [place] T Van 5 degrees [place] Urea nitrogen [Mass/Vol] Normal sinus rhythm Right bundle branch block Moderate voltage criteria for LVH, may be normal variant Abnormal ECG When compared with ECG of 13-NOV-2018 08:33, No significant change was found Confirmed by Анна Zamarripa ([id number]) on 11/20/2018 9:39:56 AM [place] Ventricular Rate 79 BPM [place] Joseph, Chpo Incoming Results From [place] - 11/20/2018 9:40 AM EDT Normal sinus rhythm Right bundle branch block Moderate voltage criteria for LVH, may be normal variant Abnormal ECG When compared with ECG of 13-NOV-2018 08:33, No significant change was found Confirmed by Анна Zamarripa ([id number]) on 11/20/2018 9:39:56 AM [place] CBC Auto Differentialon 10-23 Neutrophils Absolute 6.1 K/uL 1.4 - 6 .5 K/uL [place] CBC With Platelet and Differ entialon 11-19-2018 Basophils (Bld) [#/Vol] 0.2 10*3/uL Normal 0.0-0.2 [place] Comment on above: Performed By: #### C MP #### [facility] [address] [facility] [address] Basophils/100 WBC (Bld) 1.5 % Normal [place] Comment on above: Performed By: #### C MP #### [facility] [address] [facility] [address] Eosinophils (Bld) [#/Vol] 0.3 10*3/uL Normal 0.0-0.7 [place] Comment on above: Performed By: #### C MP #### [facility] [address] [place] [address] Eosinophils/100 WBC (Bld) 2.5 % Normal [place] Comment on above: Performed By: #### C MP #### [facility] [address] [place] [address] Erythrocyte distribution width (RBC) [Ratio] 14.1 % Normal 11.5-14.5 [place] Comment on above: Performed By: #### C MP #### [facility] [address] [place] [address] Hematocrit (Bld) [Volume fraction] 29.3 % Low 37.0-47.0 [place] Comment on above: Performed By: #### C MP #### [facility] [address] [place] [address] Hemoglobin (Bld) [Mass/Vol] 10.1 g/dL Low 12.0-16.0 [place] Comment on above: Performed By: #### C MP #### [facility] [address] [place] [address] Lymphocytes (Bld) [#/Vol] 2.8 10*3/uL Normal 1.0-4.8 [place] Comment on above: Performed By: #### C MP #### [facility] [address] [place] [address] Lymphocytes/100 WBC (Bld) 27.3 % Normal [place] Comment on above: Performed By: #### C MP #### [facility] [address] [place] [address] MCH (RBC) [Entitic mass] 30.7 pg Normal 27.0-31.3 [place] Comment on above: Performed By: #### C MP #### [facility] [address] [place] [address] MCHC (RBC) [Mass/Vol] 34.6 % Normal 33.0-37.0 [place] Comment on above: Performed By: #### C MP #### [facility] [address] [place] [address] MCV (RBC) [Entitic vol] 88.9 fL Normal 82.0-100.0 [place] Comment on above: Performed By: #### C MP #### [facility] [address] [place] [address] Monocytes (Bld) [#/Vol] 0.9 10*3/uL Critically high 0.2-0. 8 [place] Comment on above: Performed By: #### C MP #### [facility] [address] [place] [address] Monocytes/100 WBC (Bld) 9.2 % Normal [place] Comment on above: Performed By: #### C MP #### [facility] [address] [place] [address] Neutrophils (Bld) [#/Vol] 6.1 10*3/uL Normal 1.4-6.5 [facility] Comment on above: Performed By: #### C MP #### [facility] [address] [place] [address] Neutrophils/100 WBC (Bld) 59.5 % Normal [place], [place] Comment on above: Performed By: #### C MP #### [facility] [address] [place] [address] Platelets (Bld) [#/Vol] 396 10*3/uL Normal 130-400 [place], [place] Comment on above: Performed By: #### C MP #### [facility] [address] [place] [address] RBC (Bld) [#/Vol] 3.30 10*6/uL Low 4.20-5.40 [place] Comment on above: Performed By: #### C MP #### [facility] [address] [place] [address] WBC (Bld) [#/Vol] 10.2 10*3/uL Normal 4.8-10.8 [place] Comment on above: Performed By: #### C MP #### [facility] [address] [place] [address] High Sensitivity CRPon 11-19 High Sensitivity CRP 89.2 mg/L Critically high 0.0-5.0 [facility] Comment on above: Performed By: #### E SR #### [facility] [address] [place] [address] High sensitivity CRPon 11-19 CRP High Sensitivity 89.2 mg/L High 0 - 5 mg/L [place], [place] Interpretation and review of laboratory results Abnormal [place], [place] Otheron 11-19-2018 Interpretation and review of laboratory results Abnormal [place] Sedimentation Rateon 019 Sedimentation Rate 55 mm Critically high 0-30 M [facility] Comment on above: Performed By: #### C MP #### [facility] [address] [place] [address] Sed Rate 55 mm High 0 - 30 mm [place], [place] Basic Metabolic Panelon 10-22 Anion gap [Moles/Vol] 14 mmol/L Normal 9-15 [facility] Comment on above: Performed By: #### C MP #### [facility] [address] [place] [address] Calcium [Mass/Vol] 8.8 mg/dL Normal 8.5-9.9 [facility] Comment on above: Performed By: #### C MP #### [facility] [address] [place] [address] Chloride [Moles/Vol] 95 mmol/L Normal 95-107 [facility] Comment on above: Performed By: #### C MP #### [facility] [address] [place] [address] CO2 [Moles/Vol] 26 mmol/L Normal 20-31 [facility] Comment on above: Performed By: #### C MP #### [facility] [address] [place] [address] Creatinine [Mass/Vol] 0.58 mg/dL Normal 0.50-0.90 [facility] Comment on above: Performed By: #### C MP #### [facility] [address] [place] [address] GFR/1.73 sq M predicted among blacks MDRD (S/P/Bld) [Vol rate/Area] mL/min/{1.73_m2} Normal >60 [facility] Comment on above: Result Comment: >60 mL/min/1.73m2 EGFR, calc. for ages 18 and older using the MDRD formula (not corrected for weight), is valid for stable renal function. Performed By: #### C MP #### [facility] [address] [place] [address] GFR/1.73 sq M.predicted MDRD (S/P/Bld) [Vol rate/Area] mL/min/{1.73_m2} Normal >60 [facility] Comment on above: Result Comment: >60 mL/min/1.73m2 EGFR, calc. for ages 18 and older using the MDRD formula (not corrected for weight), is valid for stable renal function. Performed By: #### C MP #### [facility] [address] [place] [address] Glucose [Mass/Vol] 156 mg/dL Critically high 70-99 M [facility] Comment on above: Performed By: #### C MP #### [facility] [address] [place] [address] Potassium [Moles/Vol] 3.3 mmol/L Low 3.4-4.9 [facility] Comment on above: Performed By: #### C MP #### [facility] [address] [place] [address] Sodium [Moles/Vol] 135 mmol/L Normal 135-144 [facility] Comment on above: Performed By: #### C MP #### [facility] [address] [place] [address] Urea nitrogen [Mass/Vol] 11 mg/dL Normal 8-23 [facility] Comment on above: Performed By: #### C MP #### [facility] [address] [place] [address] Anion gap [Moles/Vol] 14 mmol/L [place] Calcium [Mass/Vol] 8.8 mg/dL 8.5 - 9.9 mg/dL [place] Chloride [Moles/Vol] 95 mmol/L [place] CO2 [Moles/Vol] 26 mmol/L [place] Creatinine [Mass/Vol] 0.58 mg/dL 0.5 - 0.9 mg/dL [place] GFR >60.0 >60 [place] Comment on above: >60 mL/min/1.73m2 EG FR, calc. for ages 18 and older using the MDRD formula (not corrected for weight), is valid for stable renal function. GFR Non- >60.0 >60 [place] Comment on above: >60 mL/min/1.73m2 EG FR, calc. for ages 18 and older using the MDRD formula (not corrected for weight), is valid for stable renal function. Glucose [Mass/Vol] 156 mg/dL High 70 - 99 mg/dL [place] Interpretation and review of laboratory results Abnormal [place] Potassium [Moles/Vol] 3.3 mmol/L Low [place] Sodium [Moles/Vol] 135 mmol/L [place] Urea nitrogen [Mass/Vol] 11 mg/dL 8 - 23 mg/dL [place] Magnesiumon 11-18-2018 Magnesium [Mass/Vol] 1.8 mg/dL Normal 1.7-2.4 [facility] Comment on above: Performed By: #### C MP #### [facility] [address] [place] [address] Magnesium [Mass/Vol] 1.8 mg/dL 1.7 - 2 .4 mg/dL [place] TSH w/out Reflexon 9 TSH Qn 0.880 uIU/mL Normal 0.440-3.86 [facility] Comment on above: Performed By: #### C MP #### [facility] [address] [place] [address] TSH without Reflexon 019 TSH Qn 0.880 m[IU]/L [place] CBC Auto Differentialon 10-22 Basophils (Bld) [#/Vol] 0.1 10*3/uL 0 - 0.2 K/uL [place] Basophils/100 WBC (Bld) 0.7 % [place] Eosinophils (Bld) [#/Vol] 0.4 10*3/uL 0 - 0.7 K/uL [place] Eosinophils/100 WBC (Bld) 2.8 % [place] Erythrocyte distribution width (RBC) [Ratio] 14.2 % 11.5 - 14.5 % [place] Hematocrit (Bld) [Volume fraction] 32.3 % Low 37 - 47 % [place] Hemoglobin (Bld) [Mass/Vol] 10.8 g/dL Low 12 - 16 g/dL [place] Interpretation and review of laboratory results Abnormal [place] Lymphocytes (Bld) [#/Vol] 2.6 10*3/uL 1 - 4.8 K/uL [place] Lymphocytes/100 WBC (Bld) 16.8 % [place] MCH (RBC) [Entitic mass] 30.3 pg 27 - 31.3 pg [place] MCHC (RBC) [Mass/Vol] 33.4 % 33 - 37 % [place] MCV (RBC) [Entitic vol] 90.5 fL 82 - 100 fL [place] Monocytes (Bld) [#/Vol] 1.3 10*3/uL High 0.2 - 0.8 K/uL [place] Monocytes/100 WBC (Bld) 8.3 % [place] Neutrophils Absolute 11.1 K/uL High 1.4 - 6 .5 K/uL [place] Neutrophils/100 WBC (Bld) 71.4 % [place] Platelets (Bld) [#/Vol] 375 10*3/uL 130 - 400 K/uL [place] RBC (Bld) [#/Vol] 3.57 10*6/uL Low [place] WBC (Bld) [#/Vol] 15.5 10*3/uL High 4.8 - 10.8 K/uL [place] CBC With Platelet and Differ entialon 11-17-2018 Basophils (Bld) [#/Vol] 0.1 10*3/uL Normal 0.0-0.2 [facility] Comment on above: Performed By: #### C MP #### [facility] [address] [place] [address] Basophils/100 WBC (Bld) 0.7 % Normal [facility] Comment on above: Performed By: #### C MP #### [facility] [address] [place] [address] Eosinophils (Bld) [#/Vol] 0.4 10*3/uL Normal 0.0-0.7 [facility] Comment on above: Performed By: #### C MP #### [facility] [address] [place] [address] Eosinophils/100 WBC (Bld) 2.8 % Normal [facility] Comment on above: Performed By: #### C MP #### [facility] [address] [place] [address] Erythrocyte distribution width (RBC) [Ratio] 14.2 % Normal 11.5-14.5 [facility] Comment on above: Performed By: #### C MP #### [facility] [address] [place] [address] Hematocrit (Bld) [Volume fraction] 32.3 % Low 37.0-47.0 [facility] Comment on above: Performed By: #### C MP #### [facility] [address] [place] [address] Hemoglobin (Bld) [Mass/Vol] 10.8 g/dL Low 12.0-16.0 [facility] Comment on above: Performed By: #### C MP #### [facility] [address] [place] [address] Lymphocytes (Bld) [#/Vol] 2.6 10*3/uL Normal 1.0-4.8 [facility] Comment on above: Performed By: #### C MP #### [facility] [address] [place] [address] Lymphocytes/100 WBC (Bld) 16.8 % Normal [facility] Comment on above: Performed By: #### C MP #### [facility] [address] [place] [address] MCH (RBC) [Entitic mass] 30.3 pg Normal 27.0-31.3 [facility] Comment on above: Performed By: #### C MP #### [facility] [address] [place] [address] MCHC (RBC) [Mass/Vol] 33.4 % Normal 33.0-37.0 [facility] Comment on above: Performed By: #### C MP #### [facility] [address] [place] [address] MCV (RBC) [Entitic vol] 90.5 fL Normal 82.0-100.0 M [facility] Comment on above: Performed By: #### C MP #### [facility] [address] [place] [address] Monocytes (Bld) [#/Vol] 1.3 10*3/uL Critically high 0.2-0. 8 [facility] Comment on above: Performed By: #### C MP #### [facility] [address] [place] [address] Monocytes/100 WBC (Bld) 8.3 % Normal M [facility] Comment on above: Performed By: #### C MP #### [facility] [address] [place] [address] Neutrophils (Bld) [#/Vol] 11.1 10*3/uL Critically high 1.4-6.5 [facility] Comment on above: Performed By: #### C MP #### [facility] [address] [place] [address] Neutrophils/100 WBC (Bld) 71.4 % Normal [facility] Comment on above: Performed By: #### C MP #### [facility] [address] [place] [address] Platelets (Bld) [#/Vol] 375 10*3/uL Normal 130-400 [facility] Comment on above: Performed By: #### C MP #### [facility] [address] [place] [address] RBC (Bld) [#/Vol] 3.57 10*6/uL Low 4.20-5.40 [facility] Comment on above: Performed By: #### C MP #### [facility] [address] [place] [address] WBC (Bld) [#/Vol] 15.5 10*3/uL Critically high 4.8-10.8 [facility] Comment on above: Performed By: #### C MP #### [facility] [address] [place] [address] High Sensitivity CRPon 11-17 High Sensitivity CRP 230.1 mg/L Critically high 0.0-5.0 [facility] Comment on above: Performed By: #### C MP #### [facility] [address] [place] [address] High sensitivity CRPon 11-17 CRP High Sensitivity 230.1 mg/L High 0 - 5 mg/L [place] Interpretation and review of laboratory results Abnormal [place] Sedimentation Rateon 019 Sedimentation Rate 50 mm Critically high 0-30 M [facility] Comment on above: Performed By: #### C MP #### [facility] [address] [place] [id number] Interpretation and review of laboratory results Abnormal [place], [place] Sed Rate 50 mm High 0 - 30 mm [place] US DUP LOWER EXTREMITIES VAUGHN ATERAL VENOUSon 11-17-2018 NO DVT IDENTIFIED IN EITHER LOWER EXTREMITY. [place], [place] Joseph, Chpo Incoming Radiant Results From [facility]acs - 11/17/2018 8:05 AM EDT US DUP [...] NO DVT IDENTIFIED IN EITHER LOWER EXTREMITY. [place] US DUP LOWER EXTREMITIES BILATERAL VENOUS : 11/16/2018 CLINICAL HISTORY: LEG SWELLING, PAIN, DVT SUSPECTED . COMPARISON: None available. Grayscale, compression, color and waveform Doppler analysis of both lower extremity deep venous systems was performed with augmentation. FINDINGS: There is no deep venous thrombosis, abnormal masses, fluid collections or other findings of concern identified within either lower extremity. [place] Urine Cultureon 11-17-2018 Bacteria identified Cx Nom (U) No growth 24 hours [place], [place] ORDERED BY: ADDY COKER SOURCE: Urine Clean Catch COLLECTED: 11/15/18 19:05 ANTIBIOTICS AT DI.: RECEIVED : 11/15/18 19:05 [place] CBC With Platelet and Differ entialon 11-16-2018 Neutrophils (Bld) [#/Vol] 15.5 10*3/uL Critically high 1.4-6.5 [facility] Comment on above: Performed By: #### P TT #### [facility] [address] [place] [address] Basophils (Bld) [#/Vol] 0.2 10*3/uL Normal 0.0-0.2 [place] Comment on above: Performed By: #### P TT #### [facility] [address] [place] [address] Basophils/100 WBC (Bld) 0.9 % Normal [place], [place] Comment on above: Performed By: #### P TT #### [facility] [address] [place] [address] Eosinophils (Bld) [#/Vol] 0.1 10*3/uL Normal 0.0-0.7 [place] Comment on above: Performed By: #### P TT #### [facility] [address] [place] [address] Eosinophils/100 WBC (Bld) 0.8 % Normal [place] Comment on above: Performed By: #### P TT #### [facility] [address] [place] [address] Erythrocyte distribution width (RBC) [Ratio] 14.4 % Normal 11.5-14.5 [place] Comment on above: Performed By: #### P TT #### [facility] [address] [place] [address] Hematocrit (Bld) [Volume fraction] 33.4 % Low 37.0-47.0 [place] Comment on above: Performed By: #### P TT #### [facility] [address] [place] [address] Hemoglobin (Bld) [Mass/Vol] 11.0 g/dL Low 12.0-16.0 [place] Comment on above: Performed By: #### P TT #### [facility] [address] [place] [address] Lymphocytes (Bld) [#/Vol] 1.5 10*3/uL Normal 1.0-4.8 [place] Comment on above: Performed By: #### P TT #### [facility] [address] [place] [address] Lymphocytes/100 WBC (Bld) 7.9 % Normal [place] Comment on above: Performed By: #### P TT #### [facility] [address] [place] [address] MCH (RBC) [Entitic mass] 29.4 pg Normal 27.0-31.3 [place] Comment on above: Performed By: #### P TT #### [facility] [address] [place] [address] MCHC (RBC) [Mass/Vol] 32.9 % Low 33.0-37.0 [place] Comment on above: Performed By: #### P TT #### [facility] [address] [place] [address] MCV (RBC) [Entitic vol] 89.4 fL Normal 82.0-100.0 [place] Comment on above: Performed By: #### P TT #### [facility] [address] [place] [address] Monocytes (Bld) [#/Vol] 1.3 10*3/uL Critically high 0.2-0. 8 [place] Comment on above: Performed By: #### P TT #### [facility] [address] [place] [address] Monocytes/100 WBC (Bld) 7.1 % Normal [place], [place] Comment on above: Performed By: #### P TT #### [facility] [address] [place] [address] Neutrophils/100 WBC (Bld) 83.3 % Normal [place] Comment on above: Performed By: #### P TT #### [facility] [address] [place] [address] Platelets (Bld) [#/Vol] 304 10*3/uL Normal 130-400 [place] Comment on above: Performed By: #### P TT #### [facility] [address] [place] [address] RBC (Bld) [#/Vol] 3.74 10*6/uL Low 4.20-5.40 [place] Comment on above: Performed By: #### P TT #### [facility] [address] [place] [address] WBC (Bld) [#/Vol] 18.6 10*3/uL Critically high 4.8-10.8 [place] Comment on above: Performed By: #### P TT #### [facility] [address] [facility] [address] CBC auto differentialon 10-22 Interpretation and review of laboratory results Abnormal [place] Neutrophils Absolute 15.5 K/uL High 1.4 - 6 .5 K/uL [place] ECHO Complete 2D W Doppler W Coloron 11-16-2018 Transthoracic Echocardiography Report (TTE) Demographics Patient Name MERCY GANDHI Gender Female Patient Number [id number] Race Unknown Ethnicity Visit Number [id number] Room Number R238 Corporate ID Date of Study 11/16/2018 [facility] Number Date of 1935 Molder Hand 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 Age 83 year(s) Interpreting [facility] Physician Cardiology Cain Quinonez MD [...] Gradient: 4.03 mmHg Estimated PASP: 40.86 mmHg PA ED Velocity: 1.27 m/s LVOT Peak Velocity: [...] Root: 2.35 cm LVOT Diameter: 1.65 cm [facility], [place] Joseph, Chpo Incoming Cardiovascular Results From [facility] - 11/16/2018 5:05 PM EDT Transthoracic Echocardiography Report (TTE) Demographics Patient Name MERCY GANDHI Gender Female Patient Number [id number] Race Unknown Ethnicity Visit Number [id number] Room Number R238 Corporate ID Date of Study 11/16/2018 Referring Physician Holiday DO Natalia Walters Date of 1935 Molder Hand 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 Age 83 year(s) Interpreting [facility] Physician Cardiology Cain Quinonez MD [...] Gradient: 4.03 mmHg Estimated PASP: 40.86 mmHg PA ED Velocity: 1.27 m/s LVOT Peak Velocity: [...] Root: 2.35 cm LVOT Diameter: 1.65 cm [place] Microscopic Urinalysison Bacteria, UA Negative /HPF [place] Epi Cells 3-5 /HPF [place] Interpretation and review of laboratory results Abnormal [place] RBC (U) [#/Vol] 3-5 Abnormal [place] Renal Epithelial, Urine 0-2 Abnormal /HPF [place], [place] WBC, UA None seen [place] CAROTID ARTERY BILATERALo n 11-16-2018 [...] Damped resistive CCA decreased decreased resistive CCA [place] Joseph, Chpo Incoming Radiant Results From [facility] - 11/16/2018 10:40 AM EDT Patient : [...] Damped resistive CCA decreased decreased resistive CCA [facility] MDA[facility] Patient 5 : 1935 Age: 83 years [...] and noncalcified plaque bilateral [facility] LOWER EXTREMITIES VAUGHN ATERAL VENOUSon [...] De Souza MD 11/17/18 Final result Normal [facility] Urine Microscopicon 11-17-19 19 Bacteria LM.HPF (Urine sed) [#/Area] Negative Normal [facility] Comment on above: Performed By: #### P TT #### [facility] [address] [facility] [address] Epithelial cells LM Ql (Urine sed) 3-5 Normal [facility] Comment on above: Performed By: #### P TT #### [facility] [address] [facility] [address] RBC (U) [#/Vol] 3-5 Abnormal 0-2 [facility] Comment on above: Performed By: #### P TT #### [facility] [address] [facility] [address] Urine Renal Epithelial 0-2 Abnormal Me [facility] Comment on above: Performed By: #### P TT #### [facility] [address] [facility] [address] WBC (U) [#/Vol] None seen Normal 0-5 [facility] Comment on above: Performed By: #### P TT #### [facility] [address] [facility] [address] XR CHEST PORTABLEon 11-17-19 19 Joseph, Chpo Incoming Radiant Results From [facility] - 11/16/2018 10:21 AM EDT EXAMINATION: XR CHEST PORTABLE CLINICAL HISTORY: fever . History of back surgery. COMPARISONS: None available. FINDINGS: Single AP portable view the chest obtained on November 15, 2018 at 2124 hours. The heart is not enlarged. Mediastinum is not widened. Calcified aorta is not dilated. Lungs are clear. The chest wall is unremarkable. CONCLUSION: NO ACUTE PROCESS [facility] [place], [place] EXAMINATION: XR CHES T PORTABLE CLINICAL HISTORY: fever . History of back surgery. COMPARISONS: None available. FINDINGS: Single AP portable view the chest obtained on November 15, 2018 at 2124 hours. The heart is not enlarged. Mediastinum is not widened. Calcified aorta is not dilated. Lungs are clear. The chest wall is unremarkable. CONCLUSION: NO ACUTE PROCESS [place] CBC Auto Differentialon 10-22 Anisocytosis Ql (Bld) 1+ [place] Bands Relative 4 % Low 5 - 11 % [place] Basophils (Bld) [#/Vol] 0.0 10*3/uL 0 - 0.2 K/uL [place] Basophils/100 WBC (Bld) 0.6 % [place] Eosinophils (Bld) [#/Vol] 0.0 10*3/uL 0 - 0.7 K/uL [place] Eosinophils/100 WBC (Bld) 0.9 % [place] Erythrocyte distribution width (RBC) [Ratio] 14.6 % High 11.5 - 14.5 % [place] Hematocrit (Bld) [Volume fraction] 33.3 % Low 37 - 47 % [place] Hemoglobin (Bld) [Mass/Vol] 10.9 g/dL Low 12 - 16 g/dL [place] Interpretation and review of laboratory results Abnormal [place] Lymphocytes (Bld) [#/Vol] 3.5 10*3/uL 1 - 4.8 K/uL [place] Lymphocytes/100 WBC (Bld) 17.0 % [place] MCH (RBC) [Entitic mass] 29.8 pg 27 - 31.3 pg [place] MCHC (RBC) [Mass/Vol] 32.9 % Low 33 - 37 % [place] MCV (RBC) [Entitic vol] 90.7 fL 82 - 100 fL [place] Microcytes 1+ [place] Monocytes (Bld) [#/Vol] 0.0 10*3/uL Low 0.2 - 0.8 K/uL [place] Monocytes/100 WBC (Bld) 7.7 % [place] Neutrophils Absolute 17.3 K/uL High 1.4 - 6 .5 K/uL [place] Neutrophils/100 WBC (Bld) 79.0 % [place] PLATELET SLIDE REVIEW Normal [place] Platelets (Bld) [#/Vol] 315 10*3/uL 130 - 400 K/uL [place] RBC (Bld) [#/Vol] 3.67 10*6/uL Low [place] WBC (Bld) [#/Vol] 20.8 10*3/uL High 4.8 - 10.8 K/uL [place] CBC With Platelet No Differe ntialon 11-15-2018 Erythrocyte distribution width (RBC) [Ratio] 14.5 % Normal 11.5-14.5 [facility] Comment on above: Performed By: #### P TT #### [facility] [address] [place] [address] Hematocrit (Bld) [Volume fraction] 36.9 % Low 37.0-47.0 [facility] Comment on above: Performed By: #### P TT #### [facility] [address] [place] [address] Hemoglobin (Bld) [Mass/Vol] 11.9 g/dL Low 12.0-16.0 [facility] Comment on above: Performed By: #### P TT #### [facility] [address] [place] [address] MCH (RBC) [Entitic mass] 29.4 pg Normal 27.0-31.3 [facility] Comment on above: Performed By: #### P TT #### [facility] [address] [place] [address] MCHC (RBC) [Mass/Vol] 32.3 % Low 33.0-37.0 [facility] Comment on above: Performed By: #### P TT #### [facility] [address] [place] [address] MCV (RBC) [Entitic vol] 91.1 fL Normal 82.0-100.0 [facility] Comment on above: Performed By: #### P TT #### [facility] [address] [place] [address] Platelets (Bld) [#/Vol] 341 10*3/uL Normal 130-400 [facility] Comment on above: Performed By: #### P TT #### [facility] [address] [place] [address] RBC (Bld) [#/Vol] 4.05 10*6/uL Low 4.20-5.40 [facility] Comment on above: Performed By: #### P TT #### [facility] [address] [place] [address] WBC (Bld) [#/Vol] 19.8 10*3/uL Critically high 4.8-10.8 [facility] Comment on above: Performed By: #### P TT #### [facility] [address] [place] [address] CBC With Platelet and Differ entialon 11-15-2018 Anisocytosis Ql (Bld) 1+ Normal [facility] Comment on above: Performed By: #### P TT #### [facility] [address] [place] [address] Bands 4 % Low 5-11 [facility] Comment on above: Performed By: #### P TT #### [facility] [address] [place] [address] Basophils (Bld) [#/Vol] 0.0 10*3/uL Normal 0.0-0.2 [facility] Comment on above: Performed By: #### P TT #### [facility] [address] [place] [address] Basophils/100 WBC (Bld) 0.6 % Normal [facility] Comment on above: Performed By: #### P TT #### [facility] [address] [place] [address] Eosinophils (Bld) [#/Vol] 0.0 10*3/uL Normal 0.0-0.7 [facility] Comment on above: Performed By: #### P TT #### [facility] [address] [place] [address] Eosinophils/100 WBC (Bld) 0.9 % Normal [facility] Comment on above: Performed By: #### P TT #### [facility] [address] [place] [address] Lymphocytes (Bld) [#/Vol] 3.5 10*3/uL Normal 1.0-4.8 [facility] Comment on above: Performed By: #### P TT #### [facility] [address] [place] [address] Lymphocytes/100 WBC (Bld) 17.0 % Normal [facility] Comment on above: Performed By: #### P TT #### [facility] [address] [place] [address] Microcytic 1+ Normal [facility] Comment on above: Performed By: #### P TT #### [facility] [address] [place] [address] Monocytes (Bld) [#/Vol] 0.0 10*3/uL Low 0.2-0.8 [facility] Comment on above: Performed By: #### P TT #### [facility] [address] [place] [address] Monocytes/100 WBC (Bld) 7.7 % Normal [facility] Comment on above: Performed By: #### P TT #### [facility] [address] [place] [address] Neutrophils (Bld) [#/Vol] 17.3 10*3/uL Critically high 1.4-6.5 [facility] Comment on above: Performed By: #### P TT #### [facility] [address] [place] [address] Neutrophils/100 WBC (Bld) 79.0 % Normal [facility] Comment on above: Performed By: #### P TT #### [facility] [address] [place] [address] Platelet Slide Review Normal Normal [facility] Comment on above: Performed By: #### P TT #### [facility] [address] [place] [address] Erythrocyte distribution width (RBC) [Ratio] 14.6 % Critically high 11.5-14.5 [facility] Comment on above: Performed By: #### P TT #### [facility] [address] [place] [address] Hematocrit (Bld) [Volume fraction] 33.3 % Low 37.0-47.0 [facility] Comment on above: Performed By: #### P TT #### [facility] [address] [place] [address] Hemoglobin (Bld) [Mass/Vol] 10.9 g/dL Low 12.0-16.0 [facility] Comment on above: Performed By: #### P TT #### [facility] [address] [place] [address] MCH (RBC) [Entitic mass] 29.8 pg Normal 27.0-31.3 [facility] Comment on above: Performed By: #### P TT #### [facility] [address] [place] [address] MCHC (RBC) [Mass/Vol] 32.9 % Low 33.0-37.0 [facility] Comment on above: Performed By: #### P TT #### [facility] [address] [place] [address] MCV (RBC) [Entitic vol] 90.7 fL Normal 82.0-100.0 M [facility] Comment on above: Performed By: #### P TT #### [facility] [address] [place] [address] Platelets (Bld) [#/Vol] 315 10*3/uL Normal 130-400 [facility] Comment on above: Performed By: #### P TT #### [facility] [address] [address] RBC (Bld) [#/Vol] 3.67 10*6/uL Low 4.20-5.40 [facility] Comment on above: Performed By: #### P TT #### [facility] [address] [place] [address] WBC (Bld) [#/Vol] 20.8 10*3/uL Critically high 4.8-10.8 [facility] Comment on above: Performed By: #### P TT #### [facility] [address] [place] [address] Comprehensive Metabolic Pane l reflex Mgon 11-15-2018 Albumin [Mass/Vol] 3.3 g/dL Low 3.5-4.6 [facility] Comment on above: Performed By: #### P TT #### [facility] [address] [place] [address] ALP [Catalytic activity/Vol] 71 U/L Normal 40-130 [facility] Comment on above: Performed By: #### P TT #### [facility] [address] [place] [address] ALT [Catalytic activity/Vol] 12 U/L Normal 0-33 [facility] Comment on above: Performed By: #### P TT #### [facility] [address] [place] [address] Anion gap [Moles/Vol] 11 mmol/L Normal 9-15 [facility] Comment on above: Performed By: #### P TT #### [facility] [address] [place] [address] AST [Catalytic activity/Vol] 28 U/L Normal 0-35 [facility] Comment on above: Performed By: #### P TT #### [facility] [address] [place] [address] Bilirubin [Mass/Vol] 0.4 mg/dL Normal 0.2-0.7 [facility] Comment on above: Performed By: #### P TT #### [facility] [address] [place] [address] Calcium [Mass/Vol] 9.1 mg/dL Normal 8.5-9.9 [facility] Comment on above: Performed By: #### P TT #### [facility] [address] [place] [address] Chloride [Moles/Vol] 98 mmol/L Normal 95-107 [facility] Comment on above: Performed By: #### P TT #### [facility] [address] [place] [address] CO2 [Moles/Vol] 27 mmol/L Normal 20-31 [facility] Comment on above: Performed By: #### P TT #### [facility] [address] [place] [address] Creatinine [Mass/Vol] 0.59 mg/dL Normal 0.50-0.90 [facility] Comment on above: Performed By: #### P TT #### [facility] [address] [place] [address] GFR/1.73 sq M predicted among blacks MDRD (S/P/Bld) [Vol rate/Area] mL/min/{1.73_m2} Normal >60 [facility] Comment on above: Result Comment: >60 mL/min/1.73m2 EGFR, calc. for ages 18 and older using the MDRD formula (not corrected for weight), is valid for stable renal function. Performed By: #### P TT #### [facility] [address] [place] [address] GFR/1.73 sq M.predicted MDRD (S/P/Bld) [Vol rate/Area] mL/min/{1.73_m2} Normal >60 [facility] Comment on above: Result Comment: >60 mL/min/1.73m2 EGFR, calc. for ages 18 and older using the MDRD formula (not corrected for weight), is valid for stable renal function. Performed By: #### P TT #### [facility] [address] [place] [address] Globulin (S) [Mass/Vol] 3.2 g/dL Normal 2.3-3.5 [facility] Comment on above: Performed By: #### P TT #### [facility] [address] [place] [address] Glucose [Mass/Vol] 123 mg/dL Critically high 70-99 [facility] Comment on above: Performed By: #### P TT #### [facility] [address] [place] [address] Potassium reflex Mg 3.8 mEq/L Normal 3.4-4.9 [facility] Comment on above: Performed By: #### P TT #### [facility] [address] [place] [address] Protein [Mass/Vol] 6.5 g/dL Normal 6.3-8.0 [facility] Comment on above: Performed By: #### P TT #### [facility] [address] [place] [address] Sodium [Moles/Vol] 136 mmol/L Normal 135-144 [facility] Comment on above: Performed By: #### P TT #### [facility] [address] [place] [address] Urea nitrogen [Mass/Vol] 6 mg/dL Low 8-23 [facility] Comment on above: Performed By: #### P TT #### [facility] [address] [place] [address] Culture, Blood 2on 9 Culture, Blood 2 ORDERED BY: ADDY COKER SOURCE: Blood COLLECTED: 11/15/18 16:37 ANTIBIOTICS AT DI.: RECEIVED : 11/15/18 16:42 Culture, Blood 2 FINAL 11/20/18 18:15 No growth after 5 days of incubation. Normal [facility] Comment on above: Performed By: #### C MP #### [facility] [address] [place] [address] Culture, Urineon 11-15-2018 Culture, Urine ORDERED BY: ADDY COKER SOURCE: Urine Clean Catch COLLECTED: 11/15/18 19:05 ANTIBIOTICS AT DI.: RECEIVED : 11/15/18 19:05 Culture, Urine FINAL 11/17/18 07:28 No growth 24 hours Normal [facility] Comment on above: Performed By: #### C MP #### [facility] [address] [place] [address] URINE RT REFLEX TO CULTUREon 11-15-2018 Bilirubin Urine Negative Negative [place], [place] Blood, Urine TRACE Abnormal Negative [place] Clarity, UA Clear Clear [place] Color, UA Yellow Straw/Yello w [place] Glucose, Ur Negative Negative mg/dL [place] Interpretation and review of laboratory results Abnormal [place] Ketones Ql (U) Negative Negative mg/dL [place] Leukocyte esterase Test strip Ql (U) Negative Negative [place] Nitrite, Urine Negative Negative [place] pH, UA 7.0 [place] Protein (U) [Mass/Vol] 30 mg/dL Abnormal Negative [place] Specific [place], UA 1.014 [place], [place] Urine Reflex to Culture YES M [place] Urobilinogen, Urine 0.2 <2.0 E.U./dL [place] CAROTID ARTERY BILATERALo n 11-15-2018 [...] Mohsen Childers MD 11/16/18 Final result Normal [facility] Urinalysis, reflex to cultur kendall 11-15-2018 Bilirubin Ql (U) Negative Normal Negative [facility] Comment on above: Performed By: #### P TT #### [facility] [address] [place] [address] Clarity (U) Clear Normal Clear [facility] Comment on above: Performed By: #### P TT #### [facility] [address] [place] [address] Color (U) Yellow Normal Straw/Jack [facility] Comment on above: Performed By: #### P TT #### [facility] [address] [place] [address] Glucose Ql (U) Negative Normal Negative [facility] Comment on above: Performed By: #### P TT #### [facility] [address] [place] [address] Hemoglobin Ql (U) TRACE Abnormal Negative [facility] Comment on above: Performed By: #### P TT #### [facility] [address] [place] [address] Ketones Ql (U) Negative Normal Negative [facility] Comment on above: Performed By: #### P TT #### [facility] [address] [place] [address] Leukocyte esterase Test strip Ql (U) Negative Normal Negative [facility] Comment on above: Performed By: #### P TT #### [facility] [address] [place] [address] Nitrite Ql (U) Negative Normal Negative [facility] Comment on above: Performed By: #### P TT #### [facility] [address] [place] [address] pH (U) 7.0 [pH] Normal 5.0-9.0 [facility] Comment on above: Performed By: #### P TT #### [facility] [address] [place] [address] Protein Ql (U) 30 mg/dL Abnormal Negative [facility] Comment on above: Performed By: #### P TT #### [facility] [address] [place] [address] Specific gravity (U) [Rel density] 1.014 Normal 1.005-1.03 [facility] Comment on above: Performed By: #### P TT #### [facility] [address] [place] [address] Urine Reflexed to Culture YES Normal [facility] Comment on above: Performed By: #### P TT #### [facility] [address] [place] [address] Urobilinogen Qn (U) 0.2 {Juan'U}/dL Normal < 2.0 [facility] Comment on above: Performed By: #### P TT #### [facility] [address] [place] [address] XR CHEST PORTABLEon 11-16-19 XR CHEST PORTABLE [...] Pearl Varghese MD 11/16/18 Final result Normal [facility] Basic Metabolic Panel Reflex Mgon 11-14-2018 Anion gap [Moles/Vol] 10 mmol/L Normal 9-15 [facility] Comment on above: Performed By: #### P T #### [facility] [address] [place] [address] Calcium [Mass/Vol] 8.4 mg/dL Low 8.5-9.9 [facility] Comment on above: Performed By: #### P T #### [facility] [address] [place] [address] Chloride [Moles/Vol] 100 mmol/L Normal 95-107 [facility] Comment on above: Performed By: #### P T #### [facility] [address] [place] [address] CO2 [Moles/Vol] 25 mmol/L Normal 20-31 [facility] Comment on above: Performed By: #### P T #### [facility] [address] [place] [address] Creatinine [Mass/Vol] 0.66 mg/dL Normal 0.50-0.90 [facility] Comment on above: Performed By: #### P T #### [facility] [address] [place] [address] GFR/1.73 sq M predicted among blacks MDRD (S/P/Bld) [Vol rate/Area] mL/min/{1.73_m2} Normal >60 [facility] Comment on above: Result Comment: >60 mL/min/1.73m2 EGFR, calc. for ages 18 and older using the MDRD formula (not corrected for weight), is valid for stable renal function. Performed By: #### P T #### [facility] [address] [place] [address] GFR/1.73 sq M.predicted MDRD (S/P/Bld) [Vol rate/Area] mL/min/{1.73_m2} Normal >60 [facility] Comment on above: Result Comment: >60 mL/min/1.73m2 EGFR, calc. for ages 18 and older using the MDRD formula (not corrected for weight), is valid for stable renal function. Performed By: #### P T #### [facility] [address] [place] [address] Glucose [Mass/Vol] 144 mg/dL Critically high 70-99 M [facility] Comment on above: Performed By: #### P T #### [facility] [address] [place] [address] Potassium reflex Mg 4.1 mEq/L Normal 3.4-4.9 [facility] Comment on above: Performed By: #### P T #### [facility] [address] [place] [address] Sodium [Moles/Vol] 135 mmol/L Normal 135-144 [facility] Comment on above: Performed By: #### P T #### [facility] [address] [place] [address] Urea nitrogen [Mass/Vol] 6 mg/dL Low 8-23 [facility] Comment on above: Performed By: #### P T #### [facility] [address] [place] [address] CBC With Platelet and Differ entialon 11-14-2018 Basophils (Bld) [#/Vol] 0.1 10*3/uL Normal 0.0-0.2 [facility] Comment on above: Performed By: #### P T #### [facility] [address] [place] [address] Basophils/100 WBC (Bld) 0.5 % Normal [facility] Comment on above: Performed By: #### P T #### [facility] [address] [place] [address] Eosinophils (Bld) [#/Vol] 0.1 10*3/uL Normal 0.0-0.7 [facility] Comment on above: Performed By: #### P T #### [facility] [address] [place] [address] Eosinophils/100 WBC (Bld) 0.8 % Normal [facility] Comment on above: Performed By: #### P T #### [facility] [address] [place] [address] Erythrocyte distribution width (RBC) [Ratio] 14.1 % Normal 11.5-14.5 [facility] Comment on above: Performed By: #### P T #### [facility] [address] [place] [address] Hematocrit (Bld) [Volume fraction] 35.4 % Low 37.0-47.0 [facility] Comment on above: Performed By: #### P T #### [facility] [address] [place] [address] Hemoglobin (Bld) [Mass/Vol] 11.7 g/dL Low 12.0-16.0 [facility] Comment on above: Performed By: #### P T #### [facility] [address] [place] [address] Lymphocytes (Bld) [#/Vol] 2.7 10*3/uL Normal 1.0-4.8 [facility] Comment on above: Performed By: #### P T #### [facility] [address] [place] [address] Lymphocytes/100 WBC (Bld) 15.7 % Normal [facility] Comment on above: Performed By: #### P T #### [facility] [address] [place] [address] MCH (RBC) [Entitic mass] 29.7 pg Normal 27.0-31.3 [facility] Comment on above: Performed By: #### P T #### [facility] [address] [place] [address] MCHC (RBC) [Mass/Vol] 33.1 % Normal 33.0-37.0 [facility] Comment on above: Performed By: #### P T #### [facility] [address] [place] [address] MCV (RBC) [Entitic vol] 89.6 fL Normal 82.0-100.0 [facility] Comment on above: Performed By: #### P T #### [facility] [address] [place] [address] Monocytes (Bld) [#/Vol] 1.4 10*3/uL Critically high 0.2-0. 8 [facility] Comment on above: Performed By: #### P T #### [facility] [address] [place] [address] Monocytes/100 WBC (Bld) 7.9 % Normal [facility] Comment on above: Performed By: #### P T #### [facility] [address] [place] [address] Neutrophils (Bld) [#/Vol] 12.8 10*3/uL Critically high 1.4-6.5 [facility] Comment on above: Performed By: #### P T #### [facility] [address] [place] [address] Neutrophils/100 WBC (Bld) 75.1 % Normal [facility] Comment on above: Performed By: #### P T #### [facility] [address] [place] [address] Platelets (Bld) [#/Vol] 345 10*3/uL Normal 130-400 [facility] Comment on above: Performed By: #### P T #### [facility] [address] [place] [address] RBC (Bld) [#/Vol] 3.95 10*6/uL Low 4.20-5.40 [facility] Comment on above: Performed By: #### P T #### [facility] [address] [place] [address] WBC (Bld) [#/Vol] 17.0 10*3/uL Critically high 4.8-10.8 [facility] Comment on above: Performed By: #### P T #### [facility] [address] [place] [address] POCT Glucoseon 11-14-2018 Glucose [Mass/Vol] 116 mg/dL Critically high 60-115 M [facility] Comment on above: Performed By: #### P T #### [facility] [address] [place] [address] POC Performed on ACCU-CHEK Normal [facility] Comment on above: Performed By: #### P T #### [facility] [address] [place] [address] XR LUMBAR SPINE (2-3 VIEWS)o n 11-14-2018 [...] Mohsen Childers MD 11/14/18 Final result Normal [facility] Basic Metabolic Panel Reflex Mgon 11-13-2018 Anion gap [Moles/Vol] 13 mmol/L Normal 9-15 [facility] Comment on above: Performed By: #### P T #### [facility] [address] [place] [address] Calcium [Mass/Vol] 9.0 mg/dL Normal 8.5-9.9 [facility] Comment on above: Performed By: #### P T #### [facility] [address] [place] [address] Chloride [Moles/Vol] 101 mmol/L Normal 95-107 [facility] Comment on above: Performed By: #### P T #### [facility] [address] [place] [address] CO2 [Moles/Vol] 24 mmol/L Normal 20-31 [facility] Comment on above: Performed By: #### P T #### [facility] [address] [place] [address] Creatinine [Mass/Vol] 0.62 mg/dL Normal 0.50-0.90 [facility] Comment on above: Performed By: #### P T #### [facility] [address] [place] [address] GFR/1.73 sq M predicted among blacks MDRD (S/P/Bld) [Vol rate/Area] mL/min/{1.73_m2} Normal >60 [facility] Comment on above: Result Comment: >60 mL/min/1.73m2 EGFR, calc. for ages 18 and older using the MDRD formula (not corrected for weight), is valid for stable renal function. Performed By: #### P T #### [facility] [address] [place] [address] GFR/1.73 sq M.predicted MDRD (S/P/Bld) [Vol rate/Area] mL/min/{1.73_m2} Normal >60 [facility] Comment on above: Result Comment: >60 mL/min/1.73m2 EGFR, calc. for ages 18 and older using the MDRD formula (not corrected for weight), is valid for stable renal function. Performed By: #### P T #### [facility] [address] [place] [address] Glucose [Mass/Vol] 136 mg/dL Critically high 70-99 M [facility] Comment on above: Performed By: #### P T #### [facility] [address] [place] [address] Potassium reflex Mg 3.6 mEq/L Normal 3.4-4.9 [facility] Comment on above: Performed By: #### P T #### [facility] [address] [place] [address] Sodium [Moles/Vol] 138 mmol/L Normal 135-144 [facility] Comment on above: Performed By: #### P T #### [facility] [address] [place] [address] Urea nitrogen [Mass/Vol] 7 mg/dL Low 8-23 [facility] Comment on above: Performed By: #### P T #### [facility] [address] [place] [address] CBC With Platelet No Differe ntialon 11-13-2018 Erythrocyte distribution width (RBC) [Ratio] 14.2 % Normal 11.5-14.5 [facility] Comment on above: Performed By: #### P T #### [facility] [address] [place] [address] Hematocrit (Bld) [Volume fraction] 40.3 % Normal 37.0-47.0 [facility] Comment on above: Performed By: #### P T #### [facility] [address] [place] [address] Hemoglobin (Bld) [Mass/Vol] 13.1 g/dL Normal 12.0-16.0 [facility] Comment on above: Performed By: #### P T #### [facility] [address] [place] [address] MCH (RBC) [Entitic mass] 29.1 pg Normal 27.0-31.3 [facility] Comment on above: Performed By: #### P T #### [facility] [address] [place] [address] MCHC (RBC) [Mass/Vol] 32.4 % Low 33.0-37.0 [facility] Comment on above: Performed By: #### P T #### [facility] [address] [place] [address] MCV (RBC) [Entitic vol] 89.9 fL Normal 82.0-100.0 M [facility] Comment on above: Performed By: #### P T #### [facility] [address] [place] [address] Platelets (Bld) [#/Vol] 394 10*3/uL Normal 130-400 [facility] Comment on above: Performed By: #### P T #### [facility] [address] [place] [address] RBC (Bld) [#/Vol] 4.48 10*6/uL Normal 4.20-5.40 [facility] Comment on above: Performed By: #### P T #### [facility] [address] [place] [address] WBC (Bld) [#/Vol] 11.8 10*3/uL Critically high 4.8-10.8 [facility] Comment on above: Performed By: #### P T #### [facility] [address] [facility] [place] [id number] Culture, MRSA Screenon 11-13 Culture, MRSA Screen ORDERED BY: BRENNAN HERRON SOURCE: Nares COLLECTED: 11/13/18 09:29 ANTIBIOTICS AT DI.: RECEIVED : 11/13/18 09:29 Culture, MRSA Screen FINAL 11/14/18 08:02 No MRSA isolated Normal [facility] Comment on above: Performed By: #### P T #### [facility] [address] [place] [address] FLUORO FOR SURGICAL PROCEDUR ESon 11-13-2018 FLUORO [...] Mohsen Childers MD 11/13/18 Final result Normal [facility] Surgical Specimenon 11-14-19 Surgical Specimen [facility] [address] [place] [id number] FINAL SURGICAL PATHOLOGY REPORT Patient Name: HIRAM MADRID Accession No: [id number] Age Sex: 1935 Location: [facility] [id number] Account No: [id number] Collected: 11/13/2018 Med Rec No: [id number] Received: 11/14/2018 Attend Phys: LENNY CORRAL Completed: [...] submitted in two cassettes after brief decalcification. DAJUANYURI/NIKKY CPT: 29658 X1 [id number] X1 STANLEY GRAFF M.D. 11/15/2018 Electronically signed out by Page 1 of 1 [facility] Comment on above: Performed By: #### P TT #### [facility] [address] [place] [id number] Type and Screen Capture 3 sc rn cellon 11-13-2018 Type and Screen Capture 3 scrn cell PATIENT: MERCY GANDHI LOC: LCOPS,ORPOOL,NON BILL# : [id number] : 1935 SEX: F ORDERED BY: GOPAL AMIN ORDERED : 11/13/2018 08:10 COLLECTED: 11/13/2018 09:24 ORDER : [id number] RECEIVED : 11/13/2018 09:24 TEST NAME RESULT UNITS RANGES ABN FL ST ABORH Capture A POS F Antibody 3 Cell Scrn Captu NEG F Normal [facility] Comment on above: Performed By: #### T S3C #### [facility] [address] [place] [id number] XR SPINE ENTIRE (2-3 VIEWS)o n 11-13-2018 [...] Mohsen Childers MD 11/13/18 Final result Normal [facility] MRI LUMBAR SPINE W WO CONTRA [...] SIGNS OF UNDERLYING PATHOLOGY OR RECENT INJURY. [facility] [place] Joseph, Chpo Incoming Radiant Results From [facility] - 11/05/2018 3:07 PM EDT EXAMINATION: MRI [...] SIGNS OF UNDERLYING PATHOLOGY OR RECENT INJURY. [place], [place] MRI LUMBAR SPINE W WO CONTRAST [...] Pearl Varghese MD 11/05/18 Final result Normal [facility] Otheron 11-05-2018 Joseph, po Incoming Radiant Results From [facility] - 11/05/2018 1:21 PM EDT EXAMINATION: XR [...] AND POSTOPERATIVE FINDINGS, WITHOUT ACUTE SUPERIMPOSED ABNORMALITY. [place] EXAMINATION: XR LUMB AR SPINE (MIN [...] AND POSTOPERATIVE FINDINGS, WITHOUT ACUTE SUPERIMPOSED ABNORMALITY. [place] XR CHEST (2 VW)on 11-05-2018 XR [...] Pearl Varghese MD 11/05/18 Final result Normal [facility] XR LUMBAR SPINE (MIN 4 [...] Pearl Varghese MD 11/05/18 Final result Normal [facility] APTTon 11-04-2018 aPTT Coag (Bld) [Time] 27.9 s [facility] [place], [place] Comment on above: Effective 09/06/2018: Please note methodology and/or reference ranges have changed. aPTT - Heparin Therapeutic Range: 74.0 - 106 seconds C-Reactive Proteinon 019 CRP [Mass/Vol] 1.3 mg/L Normal 0.0-5.0 [facility] Comment on above: Performed By: #### C RP #### [facility] [address] [facility] CRP [Mass/Vol] 1.3 mg/L 0 - 5 mg/L [place] CBC Auto Differentialon 10-21 Basophils (Bld) [#/Vol] 0.1 10*3/uL 0 - 0.2 K/uL [place] Basophils/100 WBC (Bld) 1.1 % [place], [place] Eosinophils (Bld) [#/Vol] 0.2 10*3/uL 0 - 0.7 K/uL [place] Eosinophils/100 WBC (Bld) 1.3 % [place] Erythrocyte distribution width (RBC) [Ratio] 13.9 % 11.5 - 14.5 % [place] Hematocrit (Bld) [Volume fraction] 41.3 % 37 - 47 % [place] Hemoglobin (Bld) [Mass/Vol] 14.3 g/dL 12 - 16 g/dL [place] Interpretation and review of laboratory results Abnormal [place] Lymphocytes (Bld) [#/Vol] 3.5 10*3/uL 1 - 4.8 K/uL [place] Lymphocytes/100 WBC (Bld) 28.2 % [place] MCH (RBC) [Entitic mass] 30.5 pg 27 - 31.3 pg [place] MCHC (RBC) [Mass/Vol] 34.6 % 33 - 37 % [place] MCV (RBC) [Entitic vol] 88.0 fL 82 - 100 fL [place] Monocytes (Bld) [#/Vol] 0.8 10*3/uL 0.2 - 0.8 K/uL [place] Monocytes/100 WBC (Bld) 6.8 % [place] Neutrophils Absolute 7.7 K/uL High 1.4 - 6 .5 K/uL [place] Neutrophils/100 WBC (Bld) 62.6 % [place] Platelets (Bld) [#/Vol] 435 10*3/uL High 130 - 400 K/uL [place] RBC (Bld) [#/Vol] 4.69 10*6/uL [place] WBC (Bld) [#/Vol] 12.4 10*3/uL High 4.8 - 10.8 K/uL [place] CBC With Platelet and Differ entialon 11-04-2018 Basophils (Bld) [#/Vol] 0.1 10*3/uL Normal 0.0-0.2 [facility] Comment on above: Performed By: #### C BCWD #### [facility] [address] [place] [address] Basophils/100 WBC (Bld) 1.1 % Normal [facility] Comment on above: Performed By: #### C BCWD #### [facility] [address] [place] [address] Eosinophils (Bld) [#/Vol] 0.2 10*3/uL Normal 0.0-0.7 [facility] Comment on above: Performed By: #### C BCWD #### [facility] [address] [place] [address] Eosinophils/100 WBC (Bld) 1.3 % Normal [facility] Comment on above: Performed By: #### C BCWD #### [facility] [address] [place] [address] Erythrocyte distribution width (RBC) [Ratio] 13.9 % Normal 11.5-14.5 [facility] Comment on above: Performed By: #### C BCWD #### [facility] [address] [place] [address] Hematocrit (Bld) [Volume fraction] 41.3 % Normal 37.0-47.0 [facility] Comment on above: Performed By: #### C BCWD #### [facility] [address] [place] [address] Hemoglobin (Bld) [Mass/Vol] 14.3 g/dL Normal 12.0-16.0 [facility] Comment on above: Performed By: #### C BCWD #### [facility] [address] [place] [place] [address] Lymphocytes (Bld) [#/Vol] 3.5 10*3/uL Normal 1.0-4.8 [facility] Comment on above: Performed By: #### C BCWD #### [facility] [address] [place] [address] Lymphocytes/100 WBC (Bld) 28.2 % Normal [facility] Comment on above: Performed By: #### C BCWD #### [facility] [address] [place] [address] MCH (RBC) [Entitic mass] 30.5 pg Normal 27.0-31.3 [facility] Comment on above: Performed By: #### C BCWD #### [facility] [address] [place] [address] MCHC (RBC) [Mass/Vol] 34.6 % Normal 33.0-37.0 [facility] Comment on above: Performed By: #### C BCWD #### [facility] [address] [place] [address] MCV (RBC) [Entitic vol] 88.0 fL Normal 82.0-100.0 [facility] Comment on above: Performed By: #### C BCWD #### [facility] [address] [place] [address] Monocytes (Bld) [#/Vol] 0.8 10*3/uL Normal 0.2-0.8 [facility] Comment on above: Performed By: #### C BCWD #### [facility] [address] [place] [address] Monocytes/100 WBC (Bld) 6.8 % Normal [facility] Comment on above: Performed By: #### C BCWD #### [facility] [address] [place] [address] Neutrophils (Bld) [#/Vol] 7.7 10*3/uL Critically high 1.4-6.5 [facility] Comment on above: Performed By: #### C BCWD #### [facility] [address] [place] [address] Neutrophils/100 WBC (Bld) 62.6 % Normal [facility] Comment on above: Performed By: #### C BCWD #### [facility] [address] [place] [address] Platelets (Bld) [#/Vol] 435 10*3/uL Critically high 130-40 0 [facility] Comment on above: Performed By: #### C BCWD #### [facility] [address] [place] [address] RBC (Bld) [#/Vol] 4.69 10*6/uL Normal 4.20-5.40 [facility] Comment on above: Performed By: #### C BCWD #### [facility] [address] [place] [address] WBC (Bld) [#/Vol] 12.4 10*3/uL Critically high 4.8-10.8 [facility] Comment on above: Performed By: #### C BCWD #### [facility] [address] [place] [address] Comprehensive Metabolic Pane carlos 11-04-2018 Anion gap [Moles/Vol] 14 mmol/L Normal 9-15 [facility] Comment on above: Order Comment: CALL [facility] tel. [phone], Potassium results called to and read back by onofre Millan RN, 11/04/2018 16:24, by TAMMY Performed By: #### C MP #### [facility] [address] [place] [address] Bilirubin [Mass/Vol] 0.4 mg/dL Normal 0.2-0.7 [facility] Comment on above: Order Comment: CALL [facility] tel. [phone], Potassium results called to and read back by onofre Millan RN, 11/04/2018 16:24, by WEBAM Performed By: #### C MP #### [facility] [address] [place] [address] GFR/1.73 sq M predicted among blacks MDRD (S/P/Bld) [Vol rate/Area] mL/min/{1.73_m2} Normal >60 [facility] Comment on above: Order Comment: CALL [facility] tel. [phone], Potassium results called to and read back by onofre Millan RN, 11/04/2018 16:24, by WEBAM Result Comment: >60 mL/min/1.73m2 EGFR, calc. for ages 18 and older using the MDRD formula (not corrected for weight), is valid for stable renal function. Performed By: #### C MP #### [facility] [address] [place] [address] GFR/1.73 sq M.predicted MDRD (S/P/Bld) [Vol rate/Area] mL/min/{1.73_m2} Normal >60 [facility] Comment on above: Order Comment: CALL [facility] tel. [phone], Potassium results called to and read back by onofre Millan RN, 11/04/2018 16:24, by WEBAM Result Comment: >60 mL/min/1.73m2 EGFR, calc. for ages 18 and older using the MDRD formula (not corrected for weight), is valid for stable renal function. Performed By: #### C MP #### [facility] [address] [place] [address] Albumin [Mass/Vol] 4.5 g/dL Normal 3.5-4.6 [place] Comment on above: Order Comment: CALL [facility] tel. [phone], Potassium results called to and read back by onofre Millan RN, 11/04/2018 16:24, by WEBAM Performed By: #### C MP #### [facility] [address] [place] [address] ALP [Catalytic activity/Vol] 76 U/L Normal 40-130 [facility], [place] Comment on above: Order Comment: CALL [facility] tel. [phone], Potassium results called to and read back by onofre Millan RN, 11/04/2018 16:24, by WEBAM Performed By: #### C MP #### [facility] [address] [place] [address] ALT [Catalytic activity/Vol] 15 U/L Normal 0-33 [facility], [place] Comment on above: Order Comment: CALL [facility] tel. [phone], Potassium results called to and read back by onofre Millan RN, 11/04/2018 16:24, by WEBAM Performed By: #### C MP #### [facility] [address] [place] [address] AST [Catalytic activity/Vol] 20 U/L Normal 0-35 [place], [place] Comment on above: Order Comment: CALL [facility] tel. [phone], Potassium results called to and read back by onofre Millan RN, 11/04/2018 16:24, by WEBAM Performed By: #### C MP #### [facility] [address] [place] [address] Calcium [Mass/Vol] 9.9 mg/dL Normal 8.5-9.9 [place] Comment on above: Order Comment: CALL [facility] tel. [phone], Potassium results called to and read back by onofre Millan RN, 11/04/2018 16:24, by WEBAM Performed By: #### C MP #### [facility] [address] [place] [address] Chloride [Moles/Vol] 96 mmol/L Normal 95-107 [place], [place] Comment on above: Order Comment: CALL [facility] tel. [phone], Potassium results called to and read back by onofre Millan RN, 11/04/2018 16:24, by WEBAM Performed By: #### C MP #### [facility] [address] [place] [address] CO2 [Moles/Vol] 24 mmol/L Normal 20-31 [place] Comment on above: Order Comment: CALL [facility] tel. [phone], Potassium results called to and read back by oonfre Millan RN, 11/04/2018 16:24, by WEBAM Performed By: #### C MP #### [facility] [address] [facility] [place] [address] Creatinine [Mass/Vol] 0.67 mg/dL Normal 0.50-0.90 [place] Comment on above: Order Comment: CALL [facility] tel. [phone], Potassium results called to and read back by onofre Millan RN, 11/04/2018 16:24, by WEBAM Performed By: #### C MP #### [facility] [address] [facility] [place] [address] Globulin (S) [Mass/Vol] 2.8 g/dL Normal 2.3-3.5 [place] Comment on above: Order Comment: CALL [facility] tel. [phone], Potassium results called to and read back by onofre Millan RN, 11/04/2018 16:24, by WEBAM Performed By: #### C MP #### [facility] [address] [facility] [place] [address] Glucose [Mass/Vol] 109 mg/dL Critically high 70-99 [place] Comment on above: Order Comment: CALL [facility] tel. [phone], Potassium results called to and read back by onofre Millan RN, 11/04/2018 16:24, by WEBAM Performed By: #### C MP #### [facility] [address] [facility] [place] [address] Potassium [Moles/Vol] 3.0 mmol/L Critically low 3.4-4.9 [place] Comment on above: Order Comment: CALL [facility] tel. [phone], Potassium results called to and read back by onofre Millan RN, 11/04/2018 16:24, by WEBAM Performed By: #### C MP #### [facility] [address] [facility] [address] Protein [Mass/Vol] 7.3 g/dL Normal 6.3-8.0 [place] Comment on above: Order Comment: CALL [facility] tel. [phone], Potassium results called to and read back by onofre Millan RN, 11/04/2018 16:24, by WEBAM Performed By: #### C MP #### [facility] [address] [facility] [address] Sodium [Moles/Vol] 134 mmol/L Low 135-144 [place], [place] Comment on above: Order Comment: CALL [facility] tel. [phone], Potassium results called to and read back by onofre Millan RN, 11/04/2018 16:24, by WEBAM Performed By: #### C MP #### [facility] [address] [place] [address] Urea nitrogen [Mass/Vol] 8 mg/dL Normal 8-23 [place] Comment on above: Order Comment: CALL [facility] tel. [phone], Potassium results called to and read back by onofre Millan RN, 11/04/2018 16:24, by WEBAM Performed By: #### C MP #### [facility] [address] [facility] [address] Anion gap [Moles/Vol] 14 mmol/L [place] Bilirubin Ql (U) 0.4 mg/dL 0.2 - 0.7 mg/dL [place] GFR >60.0 >60 [place] Comment on above: >60 mL/min/1.73m2 EG FR, calc. for ages 18 and older using the MDRD formula (not corrected for weight), is valid for stable renal function. GFR Non- >60.0 >60 [place] Comment on above: >60 mL/min/1.73m2 EG FR, calc. for ages 18 and older using the MDRD formula (not corrected for weight), is valid for stable renal function. Interpretation and review of laboratory results [facility] [Moles/Vol] CALL [facility] tel . [phone], Potassium results called to and read back by onofre Millan RN, 11/04/2018 16:24, by ALICEAM [facility] Partial Thromboplastin Timeo n 11-04-2018 aPTT Coag (Bld) [Time] 27.9 s Normal 24.4-36.8 [facility] Comment on above: Result Comment: Effe ctive 09/06/2018: Please note methodology and/or reference ranges have changed. aPTT - Heparin Therapeutic Range: 74.0 - 106 seconds Performed By: #### P TT #### [facility] [address] [facility] [address] Prothrombin Timeon 9 INR Coag (PPP) [Relative time] 0.9 {INR} Normal [facility] Comment on above: Result Comment: Warf camden Therapy INR Therapeutic: 2.0-3.0 With Mechanical Valve: >2.5 Low-intensity Therapeutic Range: 1.5-2.0 Mod-intensity Therapeutic Range: 2.0-3.0 High-intensity Therapeutic Range: 2.5-3.5 HIgh-intensity Therapeutic Range: 3.0-4.0 Common Critical/Alarm Value: 5.0 Common Upper Limit Reported: 10.0 Effective 08/30/2018: Please note methodology and/or reference ranges have changed. Performed By: #### P T #### [facility] [address] [facility] [address] PT Coag (PPP) [Time] 12.1 s Low 12.3-14.9 [facility] Comment on above: Result Comment: Effe ctive 08/30/18 Please note methodology and/or reference ranges have changed. Performed By: #### P T #### [facility] [address] [facility] [address] Protime-INRon 11-04-2018 INR Coag (PPP) [Relative time] 0.9 {INR} [place] Comment on above: Warfarin Therapy INR Therapeutic: 2.0-3.0 With Mechanical Valve: >2.5 Low-intensity Therapeutic Range: 1.5-2.0 Mod-intensity Therapeutic Range: 2.0-3.0 High-intensity Therapeutic Range: 2.5-3.5 HIgh-intensity Therapeutic Range: 3.0-4.0 Common Critical/Alarm Value: 5.0 Common Upper Limit Reported: 10.0 Effective 08/30/2018: Please note methodology and/or reference ranges have changed. Interpretation and review of laboratory results Abnormal [place], [place] PT Coag (PPP) [Time] 12.1 s Low [place], [place] Comment on above: Effective 08/30/18 Please note methodology and/or reference ranges have changed. Sedimentation Rateon 11-04- 019 Sedimentation Rate 12 mm Normal 0-30 [facility] Comment on above: Performed By: #### E SR #### [facility] [address] [place] [address] Sed Rate 12 mm 0 - 30 mm [place], [place] Vital Signs Date Time Vital Sign Value Performing Clinician Ivonne ledesma 05-03-2023 14:21-0400 Blood Pressure Location Turner DOSS [facility] 05-03-2023 14:21-0400 Diastolic blood pressure 82 mm[Hg] Turner DOSS [facility] 05-03-2023 14:21-0400 Heart rate 76 /min Turner DOSS [facility] [place] 05-03-2023 14:21-0400 Respiratory rate 16 /min Turner DOSS [facility] [place] 05-03-2023 14:21-0400 Systolic blood pressure 156 mm[Hg] Turner DOSS [facility] [place] 04-15-2023 13:38-0500 Diastolic blood pressure 70 mm[Hg] MD Addy Daniels Work Phone: [facility] 04-15-2023 13:38-0500 Heart rate 76 /min MD Addy Daniels Work Phone: [facility] 04-15-2023 13:38-0500 Respiratory rate 18 /min MD Addy Daniels Work Phone: [facility] 04-15-2023 13:38-0500 SaO2% (BldA) [Mass fraction] 97 % MD Addy Daniels Work Phone: [facility] 04-15-2023 13:38-0500 Systolic blood pressure 160 mm[Hg] MD Addy Daniels Work Phone: [facility] 04-15-2023 12:07-0500 Body height 154.94 cm MD Addy Daniels Work Phone: [facility] 04-15-2023 12:07-0500 Body temperature 97.8 [degF] MD Addy Daniels Work Phone: [facility] 04-15-2023 12:07-0500 Body weight 60.5 kg MD Addy Daniels Work Phone: [facility] 04-06-2023 11:51-0500 Body temperature 97.9 [degF] MD Addy Daniels Work Phone: [facility] 04-06-2023 11:51-0500 Diastolic blood pressure 76 mm[Hg] MD Addy Daniels Work Phone: [facility] 04-06-2023 11:51-0500 Heart rate 84 /min MD Addy Daniels Work Phone: [facility] 04-06-2023 11:51-0500 Respiratory rate 18 /min MD Addy Daniels Work Phone: [facility] 04-06-2023 11:51-0500 SaO2% (BldA) [Mass fraction] 97 % MD Addy Daniels Work Phone: [facility] 04-06-2023 11:51-0500 Systolic blood pressure 146 mm[Hg] MD Addy Daniels Work Phone: [facility] 04-06-2023 06:00-0500 Body weight 58.6 kg MD Addy Daniels Work Phone: [facility] 04-04-2023 13:15-0500 Body height 154.94 cm MD Addy Daniels Work Phone: [facility] 12-22-2022 11:40-0400 Blood Pressure Location MIKAYLA WEISS [facility] 12-22-2022 11:40-0400 Diastolic blood pressure 84 mm[Hg] MIKAYLA WEISS [facility] 12-22-2022 11:40-0400 Systolic blood pressure 124 mm[Hg] MIKAYLA WEISS [facility] 08-06-2022 00:10-0400 Body temperature 97.3 [degF] MD Addy Daniels Work Phone: [facility] 08-06-2022 00:10-0400 Diastolic blood pressure 74 mm[Hg] MD Addy Daniels Work Phone: [facility] 08-06-2022 00:10-0400 Heart rate 80 /min MD Addy Daniels Work Phone: [facility] 08-06-2022 00:10-0400 Respiratory rate 18 /min MD Addy Daniels Work Phone: [facility] 08-06-2022 00:10-0400 SaO2% (BldA) [Mass fraction] 96 % MD Addy Daniels Work Phone: [facility] 08-06-2022 00:10-0400 Systolic blood pressure 177 mm[Hg] MD Addy Daniels Work Phone: [facility] 08-05-2022 19:51-0400 Body height 154.94 cm MD Addy Daniels Work Phone: [facility] 08-05-2022 19:51-0400 Body weight 67.6 kg MD Addy Daniels Work Phone: [facility] 11-20-2018 07:02-0400 Body Temperature 97 [degF] Mary Vega [facility], [place] 11-20-2018 07:02-0400 BP Diastolic 61 mm[Hg] [facility] [place] 11-20-2018 07:02-0400 BP Systolic 153 mm[Hg] [facility] [place] 11-20-2018 07:02-0400 Pulse (Heart Rate) 75 /min [facility] [place] 11-20-2018 07:02-0400 Pulse Oximetry 97 % [facility] [place] 11-20-2018 07:02-0400 Respiratory Rate 17 /min [facility] [place] 11-17-2018 05:54-0400 BMI (Body Mass Index) 27.62 kg/m2 [facility] [place] 11-17-2018 05:54-0400 Body weight 66.3 kg [facility] [place] 11-15-2018 15:58-0400 Height 154.9 cm [facility] [place] 11-05-2018 07:30-0400 BP Diastolic 57 mm[Hg] Lenny [employer] [facility] , [place] 11-05-2018 07:30-0400 BP Systolic 135 mm[Hg] Lenny [employer] [facility] , [place] 11-05-2018 07:30-0400 Pulse (Heart Rate) 70 /min [facility] [employer] [facility], [place] 11-05-2018 07:30-0400 Pulse Oximetry 97 % [facility] [employer] [facility] , [place] 11-04-2018 20:06-0400 Body Temperature 98.4 [degF] [facility] [employer] 11-04-2018 20:06-0400 Respiratory Rate 16 /min [facility] [employer] [place] 11-04-2018 14:56-0400 BMI (Body Mass Index) 27.4 kg/m2 [facility], [place] 11-04-2018 14:56-0400 Body weight 65.77 kg [facility] , [place] 11-04-2018 14:56-0400 Height 154.9 cm [facility] , [place] Encounters Encounter Date Encounter Type Care Provider Facility Start: 06-29-2023 ambulatory MIKAYLA Mora ty:ERIN [facility] Start: 06-28-2023 End: 06-29-2023 ambulatory Turner R DINESHL Facility: [facility] Start: 06-28-2023 End: 06-28-2023 Patient encounter procedure Turner DOSS [facility] Start: 06-21-2023 End: 06-21-2023 ambulatory Turner Doss Facility:[facility] Start: 06-21-2023 End: 06-22-2023 ambulatory MD Addy Daniels Work Phone: [facility] Work Phone: Start: 06-21-2023 End: 06-21-2023 Departed Referred MD Addy Daniels Work Phone: [facility] Start: 05-03-2023 End: 05-04-2023 ambulatory Turner R ROMARIO Facility: [facility] Start: 05-03-2023 End: 05-03-2023 Patient encounter procedure Turner Mckeon NILL [facility] Nill/S[facility] Start: 04-15-2023 End: 04-15-2023 Emergency department patient visit Turner Nielsen Facility:[facility] Start: 04-15-2023 End: 04-15-2023 Emergency department patient visit MD Addy Daniels Work Phone: [facility]-Emergency Room Work Phone: Start: 04-13-2023 ambulatory Raymond HARRISON Facility : [place] Start: 04-12-2023 Non-patient / Non-visit MD Aime Daniels Work Phone: [facility] Work Phone: Start: 04-03-2023 Non-patient / Non-visit MD Aime Daniels Work Phone: [facility] Work Phone: Start: 04-02-2023 End: 04-06-2023 Evaluation and management of inpatient Gaudencio Elashi Facility:[facility] Start: 04-02-2023 Non-patient / Non-visit MD Aime Daniels Work Phone: [facility] Work Phone: Start: 04-02-2023 End: 04-06-2023 Evaluation and management of inpatient MD Addy Daniels Work Phone: [facility] Work Phone: Start: 01-11-2023 End: 01-11-2023 ambulatory [facility] Start: 12-22-2022 End: 12-23-2022 ambulatory MIKAYLA WESIS Facility:[facility] Start: 12-22-2022 End: 12-22-2022 Patient encounter procedure MIKAYLA WEISS [facility] Start: 10-14-2022 End: 10-14-2022 ambulatory LES[facility] Start: 09-06-2022 End: 09-07-2022 ambulatory Raymond HARRISON Facility:[facility] Start: 08-11-2022 End: 08-12-2022 ambulatory Raymond HARRISON Facility:CD:[id number] Start: 08-10-2022 End: 08-11-2022 ambulatory Raymond HARRISON Facility:[facility] Start: 08-09-2022 End: 08-09-2022 ambulatory Addy Daniels Facility:[facility] Start: 08-09-2022 ambulatory Raymond HARRISON Facility :[facility] Start: 08-05-2022 End: 08-06-2022 Emergency department patient visit Camacho Blanca Ladd Facility:[facility] Start: 08-05-2022 End: 08-06-2022 Emergency department patient visit MD Addy Daniels Work Phone: [facility]-Emergency Room Work Phone: Start: 06-13-2022 End: 06-14-[address] ADDY DANIELS . Facility:[facility] Start: 05-19-[address] ADDY DANIELS . Facili ty:[facility] Start: 04-18-2022 End: 04-19-[address] VALERIE DARDEN Facility:[facility] Start: 04-04-2022 End: 04-04-2022 [facility] Start: 01-30-[address] ADDY DANIELS . Facili ty:H1 Start: 01-04-2022 End: 01-05-[address] ADDY DANIELS . Facility:[facility]1 Start: 12-26-2021 End: 12-29-2021 Evaluation and management of inpatient DR ADDY DANIELS . Facility:[facility]1 Start: 12-02-2021 End: 01-04-2022 Pre-admission assessment Alie Santos [facility] Start: 11-30-2021 End: 12-01-[address] JESUS BRUNO Facility:[facility]1 Start: 11-09-2021 End: 11-10-[address] CALISTA ACEVES Facility:[facility]1 Start: 08-06-2021 End: 08-07-[address] VALERIE DARDNE Facility:[facility]1 Start: 07-28-2021 End: 07-29-[address] CALISTA ACEVES Facility:[facility]1 Start: 06-22-2021 End: 06-22-2021 Patient encounter procedure VALERIE DARDEN [facility] Start: 11-15-2018 End: 11-20-2018 Evaluation and management of inpatient MARY VEGA [facility] Start: 11-15-2018 End: 11-20-2018 Evaluation and management of inpatient Mary Vega Work Phone: [facility] Comment on above: Spinal stenosis of l umbosacral region (Primary Dx); Impaired mobility; Vasovagal syncope Start: 11-13-2018 End: 11-15-2018 Evaluation and management of inpatient LENNY CORRAL [facility] Start: 11-13-2018 End: 11-15-2018 Patient encounter procedure LENNY CORRAL [facility] Start: 11-04-2018 End: 11-05-2018 Patient encounter procedure CALISTA ACEVES [facility] Start: 11-04-2018 End: 11-05-2018 Emergency department patient visit Lenny Corral Work Phone: [facility] Comment on above: Lumbar radiculopathy (Primary Dx); Intractable low back pain Start: 04-19-2018 End: 04-20-2018 Patient encounter procedure DEFAULT PHYSICIAN Facility:[facility] Procedures Date Procedure Procedure Detail Performing Clinician Start: 06-21-2023 Excision of basal ce ll carcinoma Turner MONTIELLloyd Comment on above: left nasolabial fold Start: 11-20-2018 INCENTIVE SPIROMETRY RT CALISTA ACEVES [...] ACEVES Start: 11-18-2018 NURSING COMMUNICATION M DORA KETAN Start: 11-18-2018 INCENTIVE SPIROMETRY RT CALISTA ACEVES Start: 11-18-2018 Ecg routine ecg w/le ast 12 lds w/i&r CALISTA ACEVES Start: 11-18-2018 INCENTIVE SPIROMETRY RT CALISTA ACEVES Start: 11-18-2018 Ecg routine ecg w/le ast 12 lds w/i&r Setve I Cho Work Phone: Start: 11-18-2018 Assay of magnesium CHRIS SHERWOOD KETAN Start: 11-18-2018 Assay of thyroid sti mulating [...] ICAL VTE PROPHYLAXIS CALISTA ACEVES Start: 11-15-2018 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 CHRIS ACEVES Start: [...] extracra nial art compl bi study [employer] Work Phone: Start: 11-15-2018 Culture bacterial quanttative colony count urine Mary Vega Work Phone: Start: 11-15-2018 Urinalysis microscopic only Mary Vega Work Phone: Start: 11-15-2018 Blood count complete auto&auto difrntl wbc CALISTA ACEVES Start: 11-15-2018 Culture bacterial bl ood aerobic w/id isolates CALISTA ACEVES Start: 11-15-2018 Microscopic examinat ion of blood, culture CALISTA ACEVES Comment on above: Performed By: #### P TT #### [facility] [address] [facility] [address] Start: 11-15-2018 Urnls dip stick/tabl et [...] ACEVES Start: 11-15-2018 PULSE OXIMETRY, CONTINUOUS CALISTA KETAN Start: 11-15-2018 INCENTIVE SPIROMETRY RT CALISTA ACEVES Start: 11-14-2018 INCENTIVE SPIROMETRY RT CALISTA ACEVES Start: 11-14-2018 PULSE OXIMETRY, CONTINUOUS CALISTA ACEVES Start: 11-14-2018 INCENTIVE SPIROMETRY RT CALISTA ACEVES Start: 11-14-2018 IP CONSULT TO CARDIOLOGY CALISTA ACEVES Start: 11-14-2018 INCENTIVE SPIROMETRY RT CALISTA ACEVES Start: 11-14-2018 PULSE OXIMETRY, CONTINUOUS CALISTA KETAN Start: 11-14-2018 INCENTIVE SPIROMETRY RT CALISTA ACEVES Start: 11-14-2018 INCENTIVE SPIROMETRY RT CALISTA ACEVES Start: 11-14-2018 PULSE OXIMETRY, CONTINUOUS CALISTA KETAN Start: 11-14-2018 Radex spine lumbosac ral 2/3 [...] Start: 11-14-2018 OT EVAL AND TREAT MARQUEZ A KETAN Start: 11-14-2018 PT EVAL AND TREAT MARQUEZ A KETAN Start: 11-14-2018 PULSE OXIMETRY, CONTINUOUS CALISTA [...] MARQUEZ ACEVES Start: 11-05-2018 NOTIFY PHYSICIAN (SPECIFY) ACLISTA ACEVES Start: 11-05-2018 PLACE INTERMITTENT P NEUMATIC [...] PATIENT STATUS (FROM ED OR OR/PROCEDURAL) CALISTA KETAN Start: 11-04-2018 Blood count complete auto&auto difrntl [...] Phone: Start: 11-04-2018 C-reactive protein Steven hung Drummond Work Phone: Start: 11-04-2018 Comprehensive metabo lic panel Ab Drummond Work Phone: Start: 11-04-2018 Prothrombin time Ab Drummond Work Phone: Start: 11-04-2018 Thromboplastin time partial plasma/whole blood Ab Drummond Work Phone: Accessory mobilizati on of the lumbar spine Turner DOSS Appendectomy MIKAYLA ABDULLAHI Bilateral salpingect mackenzie with oophorectomy MIKAYLA ABDULLAHI Cataract extraction and insertion of intraocular lens MIKAYLA WEISS Cholecystectomy MIKAYLA MARTINEZ Colonoscopy MIKAYLA WEISS Lumbar spinal fusion Turner DOSS Procedure on back MIKAYLA DUMAS Tonsillectomy MIKAYLA WEISS Plan of Treatment Date Care Activity Detail Author Start: 04-06-2023 [facility] Start: 04-04-2023 Administration of prophylactic treatment 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 Start: 04-02-2023 Hospital admission [facility] Start: 08-05-2022 CT Abdomen and Pelvi s WO contrast [facility] Start: 08-05-2022 CT of abdomen and pe lvis without contrast CT abdomen pelvis wo con [facility] Start: 11-19-2019 Creatinine monitoring Creatinine mon [place], [place] Start: 11-19-2019 Potassium monitoring Potassium monit [place], [place] Start: 11-05-2019 Creatinine monitoring Creatinine mon [place] Start: 11-05-2019 Potassium monitoring Potassium monit [place], [place] Start: 12-04-2018 End: 12-04-2018 Office Visit 12/04/2018 Office Visit Neurosurgery Lenny Corral MD [address] [place] [address], [address] [address] [phone] [facility] Start: 11-30-2018 End: 11-30-2018 Office Visit 11/30/2018 Office Visit Neurosurgery Lenny Corral MD [address] [place] [address], [address] [address] [phone] [facility] Start: 11-23-2018 End: 11-23-2018 Office Visit 11/23/2018 Office Visit Neurosurgery Lenny Corral MD [address] [place] [address], [address] [address] [phone] [facility] Start: 11-13-2018 Annual Wellness Visi t (AWV) Annual Wellness Visit (AWV) [place], [place] Start: 10-21-2018 Influenza vaccination Flu vaccine (# 1) [place], [place] Start: 2001 DEXA (modify frequen cy per FRAX score) DEXA (modify frequency per FRAX score) [place], [place] Start: 2001 Pneumococcal 65+ yea rs Vaccine (1 of 2 - PCV13) Pneumococcal 65+ years Vaccine (1 of 2 - PCV13) [place], [place] Start: 1986 Shingles Vaccine (1 of 2) Steward gles Vaccine (1 of 2) [place], [place] Start: 11-13-1955 DTaP/Tdap/Td vaccine (1 - Tdap) DTaP/Tdap/Td vaccine (1 - Tdap) [place], [place] Start: 1946 Lipid screen Lipid screen [place], [place] Culture Blood #1 Culture Blood # 1 Microbiology STAT 11/15/2018 4:37 PM EDT [place], [place] Culture Blood #2 Culture Blood # 2 Microbiology STAT 11/15/2018 4:37 PM EDT [place] End: 11-05-2018 EKG 12 Lead EKG 12 Lead ECG Routine One Time for 1 Occurrences starting 11/05/2018 until 11/05/2018 [place] Comment on above: One Time for 1 Occur rences starting 11/05/2018 until 11/05/2018 Incentive spirometry Incentive s pirometry Respiratory Care Routine Every 2hr while awake until discontinued starting 11/15/2018 [place] Comment on above: Every 2hr while awak e until discontinued starting 11/15/2018 Initiate Oxygen Ther apy Protocol Initiate Oxygen Therapy Protocol Respiratory Care Routine Daily until discontinued starting 11/15/2018 [place] Comment on above: Daily until disconti nued starting 11/15/2018 Nonrebreather mask oxygen Nonreb reather mask oxygen Respiratory Care Routine As directed - RT (PRN) until discontinued starting 11/05/2018 [place] Comment on above: As directed - RT (PA N) until discontinued starting 11/05/2018 Patient Education [facility] Work Phone: Patient referral 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 One Time for 1 Occurrences starting 11/15/2018 until 11/15/2018 [place] Comment on above: One Time for 1 Occur rences starting 11/15/2018 until 11/15/2018 End: 11-04-2018 Urine Reflex to Culture Urine Reflex to Culture Lab STAT One Time for 1 Occurrences starting 11/04/2018 until 11/04/2018 [facility] [place] Comment on above: One Time for 1 Occur rences starting 11/04/2018 until 11/04/2018 Immunizations Immunization Date Immunization Notes Care Provider Yuri romero 12-20-2021 influenza virus vaccine, unspecified formulation MIKAYLA ABDULLAHI [facility] 11-30-2021 influenza virus vaccine, unspecified formulation MD Addy Daniels Work Phone: [facility] 12-21-2020 influenza virus vaccine, unspecified formulation MIKAYLA ABDULLAHI [facility] 01-09-2019 influenza virus vaccine, unspecified formulation MIKAYLA ABDULLAHI [facility] 11-29-2017 influenza virus vaccine, unspecified formulation MIKAYLA ABDULLAHI [facility] 01-02-2017 influenza virus vaccine, unspecified formulation MIKAYLA ABDULLAHI [facility] 12-06-2016 influenza virus vaccine, unspecified formulation MIKAYLA ABDULLAHI [facility] 12-11-2014 influenza virus vaccine, unspecified formulation MIKAYLA ABDULLAHI [facility] NEGATED: Highlighted row has not occurred!05-03-2023 influenza virus vaccine, unspecified formulation Turner DOSS [facility] [place] Payers Date Payer Category Payer Self-pay [id number] 2021 Unknown [id number] 2018 Medicare MEDICARE MEDICAR E PART A AND B xxxxxxxxxxx 2018-Present [phone] [place] [address] xxxxxxxxxxx [id number] 2014 Medicare [id number] 2014 Medicare MEDICARE MEDICAR E PART A AND B xxxxxxxxxx 2014-Present [phone] [place] [address] xxxxxxxxxx [id number] [id number] 2014 Unknown [id number] 2014 Unknown 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 [address] xxxxxxxxxxxx 2014-Present [phone] [address] [place] [address] xxxxxxxxxxxx [id number] .[id number] 1959 Medicare [id number] 1959 Self-pay [id number] 1959 Unknown [id number] 1936 Unknown [id number] 2..840.1.030407.3.579.2.647 1936 Unknown [id number] 2.840.1.092247.3.579.2.182 1936 Unknown [id number] 2.840.1.026483.3.579.2.182 1936 Unknown [id number] 2.840.1.482429.3.579.2.182 1936 Unknown [id number] 2.16840.1.413536.3.579.2.182 1936 Unknown [id number] 2.16840.1.928829.3.579.2.593 1936 Unknown [id number] 2.16840.1.917122.3.579.2.593 1936 Unknown [id number] 2.16.840.1.155419.3.579.2.593 1936 Unknown [id number] 2.16.840.1.516202.3.579.2.593 1936 Unknown [id number] 2.16.840.1.563728.3.579.2.593 1936 Unknown [id number] 2.16.840.1.737593.3.579.2.593 1936 Unknown [id number] 2.16.840.1.700977.3.579.2.593 1936 Unknown [id number] 2.16.840.1.145745.3.579.2.593 1936 Unknown [id number] 2.16.840.1.710224.3.579.2.593 1936 Unknown [id number] 2.16.840.1.723703.3.579.2.593 1936 Unknown [id number] 2.16.840.1.624905.3.579.2.727 1936 Unknown [id number] 2.16.840.1.690322.3.579.2.727 1936 Unknown [id number] 2.16.840.1.421166.3.579.2.727 1936 Unknown [id number] 2.16.840.1.695965.3.579.2.727 1936 Unknown [id number] 2.16.840.1.764790.3.579.2.727 1936 Unknown [id number] 2.16.840.1.437186.3.579.2.727 1936 Unknown [id number] 2.16.840.1.463268.3.579.2.727 1936 Unknown [id number] 2.16.840.1.576011.3.579.2.727 1936 Unknown [id number] 2.16.840.1.201999.3.579.2.727 Unknown Unknown [id number] 2.16.840.1.610092.3.579.2.531 Unknown [id number] 2.16.840.1.090321.3.579.2.531 Unknown [id number] 2.16.840.1.551179.3.579.2.531 Unknown [id number] 2.16.840.1.917184.3.579.2.531 Unknown [id number] 2.16.840.1.517544.3.579.2.531 Social History Date Type Detail Facility Start: 11-04-2018 End: 04-15-2023 Tobacco smoking status NHIS Never smoker [facility] Start: 11-04-2018 End: 11-19-2018 Alcohol intake Not Currently [place] Sex Assigned At Not on file [place] Tobacco smoking status No Smokin g Status Entered [facility] Start: 1935 Sex Assigned At Female [facility] Tobacco smoking status Never [facility] Medical Equipment Procedure Code Equipment Code Equipment Origin al Text Equipment Identifier Dates Graft Canc Chip 30cc [id number] - [id number] Start: 11-13-2018 Graft Canc Chip 1.6hg18lw 15cc - [id number] Start: 11-13-2018 Sys Fix Reline 0 x Conn 40 50mm 5.5lp Adj [id number] Start: 11-13-2018 Jose Armando-Graft Infuse Kt Med [id number] Start: 11-13-2018 Impl Spine Cage Kamila Crv [id number] 8deg [id number] Start: 11-13-2018 Impl Spine Cage Kamila Crv [id number] 8deg [id number] Start: 11-13-2018 Screw Polyaxial Reline O 2s 6.0x55mm [id number] Start: 11-13-2018 Screw Lk Reline Opn Tulip 5.5mm [id number] Start: 11-13-2018 Impl Spine Harish Reline-O Lrdtc 5.5x70mm [id number] Start: 11-13-2018 Impl Spine Hraish Reline-O 5.5x75mm [id number] Start: 11-13-2018 Goals Date Patient Goal Desired Activity /State Functional Status Date Assessment Result Facility 05-03-2023 Functional Status N/A [facility] [place] 04-06-2023 Functional status Patient at Baseline [facility] Work Phone: 12-22-2022 Functional Status N/A [facility] Mental Status Date Assessment Result Facility 04-06-2023 Cognitive function Cognitive Sta tus Patient at Baseline [facility] Work Phone: Clinical Notes 04-04-2022 [...] plan excisional biopsy under local anesthesia at [facility], for definitive diagnosis and treatment, informed consent [...] mg= 1 tab(s), Oral, Daily Potassium Chloride (Ccb-Cekx-Wte 10), 20 mEq, Oral, TID pravastatin 80 [...] Recorded influenza virus vaccine, inactivated 12/11/2014 Recorded [facility] Comment on above: Result Comment: Elec tronically Signed By: ROMAROI DUMONT, Turner Connor\Date and Time Signed: 05/03/23 20:14 EDT 04-06-2023 Discharge summary Note Date/Time April 06, 2023 12:22pm [facility] [address] [place] [address] Discharge Summary Signed Patient: Hiram Madrid MR#: [id number] : 1935 Acct:[id number] Age/Sex: 87 / F Adm Date: 4 Loc: Room: [address] [place] [address]: Turner Frank DO Copies to: [...] is a 89-year-old who presented here to [facility] as a transfer on 04/02/2023. She had [...] amlodipine daily. Her home med list reports mg but currently shows me a 5 [...] Plan Discharge Plan Patient Disposition: Home Health [facility] Activity: Ambulate as Tolerated Diet: Low-Sodium Additional [...] by Turner Frank DO> 04/06/23 1222 [facility] Work Phone: 1(115) 727-719302-14-2024 Progress note Author Turner Frank [facility] April 05, 2023 8:14pm Note Date/Time April 05, 2023 8:14pm [facility] [address] [place] [address] Hospitalist Progress Note Signed Patient: Hiram Madrid MR#: [id number] : 1935 Acct:[id number] Age/Sex: 87 / F Adm Date: 4 Loc: Room: [address] [place] [address] Type: ADM IN Attending Dr: Turner Frank [...] Meq Kcl IV 04/01/24 20:29 0 mls/hr .[id number] [facility] In[facility] Levothyroxine Sodium 88 mcg 04/03/23 [...] 04/05/23 09:00 04/05/23 08:25 Pantoprazole 40 Mg Tablet. PO 04/04/24 08:59 40 mg DAILY.0630 [facility] [...] moving further. Documented By: Turner Frank DO 04/05/2309 11 Signed By: <Electronically signed by Turner Frank DO> 04/05/232013 [facility] Work Phone: 1(312) 842-583302-14-2024 Progress note [facility] April 05, 2023 11:16am Note Date/Time April 05, 2023 11:16am [facility] [address] [place] [address] Nephrology Progress Note Signed Patient: Hiram Madrid MR#: [id number] : 1935 Acct:[id number] Age/Sex: 87 / F Adm Date: 4 Loc: Room: [address] [place] [address] Type: ADM IN Attending Dr: Turner Frank DO Copies to: ~ Date of Service: 04/05/2023 Subjective Subjective Narrative: Ms. Madrid is an 87-year-old white female was transferred from [facility] on 04/02/23 for hyponatremia. Patient did complain for nausea with no vomiting or diarrhea. She had back pain and other vague symptoms that prompted her to go [facility]. ER lab showed sodium 116, potassium 2.3 and magnesium 1.6. Otherlabs unremarkable including creatinine 0.7 mg/dL. EKG showed normal sinus rhythm at 86/min with right bundle branch block. Patient was given 2 g magnesium in the emergency room and subsequently was transferred to [facility] for further management. On arrival, patient was placed on gentle hydration with normal saline with 20 mEq potassium chloride at rate of75 cc/h. Review of his records showed that the patient has a chronic hyponatremia for almost a year however she never seen nuisance animal damage control agent. Sodium has been running in the 120s. [...] [facility] [...] / 250 Balance 100 / 100 2024 1124 / 1124 120 / 120 [...] Kcl) 1,000 mls @ 75 mls/hr IV .[id number] [facility] Stop: 04/01/24 20:29 Last Infusion: 04/04/23 [...] 40 Mg Tablet.Dr) 40 mg PO DAILY.0630 [facility] Stop: 04/04/24 08:59 Last Admin: 04/05/23 08:25 [...] signed by MD Gaudencio Romero> 04/05/23 1116 [facility] Work Phone: 1(693) 218-324002-13-2024 Progress note Author Gaudencio Romero [facility] April 04, 2023 2:06pm Note Date/Time April 04, 2023 2:00pm [facility] [address] [place] [address] Nephrology Progress Note Signed Patient: Hiram Madrid MR#: [id number] : 1935 Acct:[id number] Age/Sex: 87 / F Adm Date: 4 Loc: Room: [address] [place] [address] Type: ADM IN Attending Dr: Turner Frank DO Copies to: ~ Date of Service: 04/04/2023 Subjective Subjective Narrative: Ms. Madrid is an 87-year-old white female was transferred from [facility] on 04/02/23 for hyponatremia. Patient did complain for nausea with no vomiting or diarrhea. She had back pain and other vague symptoms that prompted her to go [facility]. ER lab showed sodium 116, potassium 2.3 and magnesium 1.6. Otherlabs unremarkable including creatinine 0.7 mg/dL. EKG showed normal sinus rhythm at 86/min with right bundle branch block. Patient was given 2 g magnesium in the emergency room and subsequently was transferred to [facility] for further management. On arrival, patient was placed on gentle hydration with normal saline with 20 mEq potassium chloride at rate of75 cc/h. Review of his records showed that the patient has a chronic hyponatremia for almost a year however she never seen nuisance animal damage control agent. Sodium has been running in the 120s. [...] 250 / 250 Balance 100 / 100 5 / 2024 674 / 674 Weight 63 kg 61.3 kg 62.5 kg Meds and Allergies Meds: Active Medications Acetaminophen (Acetaminophen 325 Mg Tablet) 650 mg PO Q4H PRN PRN Reason: Pain Scale 1 - 5 Stop: 04/01/24 19:57 Amlodipine Besylate (Amlodipine 10 Mg Tablet) 10 mg PO DAILY [facility] Stop: 04/02/24 08:59 Last Admin: 04/04/23 10:06 Dose: 10 mg Docusate Sodium (Docusate 100 Mg Capsule) 200 mg PO BID PRN PRN Reason: Constipation Stop: 04/01/24 19:57 Docusate Sodium (Docusate 100 Mg Capsule) 200 mg PO BID [facility] Stop: 04/02/24 08:59 Last Admin: 04/04/23 10:06 Dose: Not Given Hydralazine HCl (Hydralazine 20 Mg/Ml Vial) 10 mg IV-PUSH Q4H PRN PRN Reason: if SBP > 185 Stop: 04/01/24 19:57 Potassium Chloride/Sodium Chloride (0.9 % Nacl-20 Meq Kcl) 1,000 mls @ 75 mls/hr IV .[id number] [facility] Stop: 04/01/24 20:29 Last Infusion: 04/04/23 08:45 Dose: 0 mls/hr Levothyroxine Sodium (Levothyroxine 88 Mcg Tablet) 88 mcg PO DAILY@0630 [facility] Stop: 04/02/24 06:29 Last Admin: 04/04/23 06:26 Dose: 88 mcg Lorazepam (Lorazepam 2 Mg/Ml Vial) 0.25 mg IV-PUSH Q4H PRN PRN Reason: Anxiety Stop: 10/01/23 11:38 Losartan Potassium (Losartan 50 Mg Tablet) 100 mg PO DAILY [facility] Stop: 04/02/24 08:59 Last Admin: 04/04/23 10:06 Dose: 100 mg Pantoprazole Sodium (Pantoprazole 40 Mg Tablet.Dr) 40 mg PO DAILY.629 [facility] Stop: 04/04/24 08:59 Pravastatin Sodium (Pravastatin 40 Mg Tablet) 80 mg PO DAILY [facility] Stop: 04/02/24 08:59 Last Admin: 04/04/23 10:06 [...] outpatient Documented By: Gaudencio Romero MD 04/04/23 9005 Signed By: <Electronically signed by MD Gaudencio Romero> 04/04/23 3586 [facility] Work Phone: 1(502) 634-334302-13-2024 Progress note Author Turner Frank [facility] April 04, 2023 1:09pm Note Date/Time April 04, 2023 1:09pm [facility] [address] [place] [address] Hospitalist Progress Note Signed Patient: Hiram Madrid MR#: [id number] : 1935 Acct:[id number] Age/Sex: 87 / F Adm Date: 4 Loc: Room: 6I0037-2 Type: ADM IN Attending Dr: Turner Frank [...] Meq Kcl IV 04/01/24 20:29 0 mls/hr .[id number] [facility] Infusion Levothyroxine Sodium 88 mcg 04/03/23 [...] <Electronically signed by Turner Frank DO> 04/04/23 1305 [facility] Work Phone: 1(290) 768-798502-12-2024 Progress note Author Turner Frank [facility] April 03, 2023 7:29pm Note Date/Time April 03, 2023 7:29pm [facility] [address] [place] [address] Hospitalist Progress Note Signed Patient: Hiram Madrid MR#: [id number] : 1935 Acct:[id number] Age/Sex: 87 / F Adm Date: 4 Loc: Room: [address] [place] [address] Type: ADM IN Attending Dr: Turner Frank [...] Meq Kcl IV 04/01/24 20:29 75 mls/hr .[id number] [place] Administration Levothyroxine Sodium 88 mcg 04/03/23 [...] <Electronically signed by Turner Frank DO> 04/03/231928 [facility] Work Phone: 1(613) 693-684102-12-2024 Consult note Author Gaudencio Romero [facility] April 03, 2023 2:07pm Note Date/Time April 03, 2023 2:07pm [facility] [address] [place] [address] Nephrology Consult Note Signed Patient: Hiram Madrid MR#: [id number] : 1935 Acct:[id number] Age/Sex: 87 / F Adm Date: 4 Loc: 4 Room: [address] [place] [address] Type: ADM IN Attending Dr: Turner Frank DO Copies to: MD Gaudencio Pickering MD Michael R. Frings, DO~ Providers Consult Date: 04/03/23 Requesting Provider: Turner Frank DO Primary Care Provider: Addy Daniels MD HPI Reason for Consult: Hyponatremia, sodium 117 on admission History of Present Illness: Ms. Madrid is an 87-year-old white female was transferred from [facility] on 04/02/23 for hyponatremia. Patient did complain for nausea with no vomiting or diarrhea. She had back pain and other vague symptoms that prompted her to go [facility]. ER lab showed sodium 116, potassium 2.3 and magnesium 1.6. Otherlabs unremarkable including creatinine 0.7 mg/dL. EKG showed normal sinus rhythm at 86/min with right bundle branch block. Patient was given 2 g magnesium in the emergency room and subsequently was transferred to [facility] for further management. On arrival, patient was placed on gentle hydration with normal saline with 20 mEq potassium chloride at rate of75 cc/h. Review of his records showed that the patient has a chronic hyponatremia for almost a year however she never seen nuisance animal damage control agent. Sodium has been running in the 120s. [...] has no ascites or edema. Lab at [facility] showed TSH 5.6, urine osmolality 298 and urine sodium 79 mmol/L Review of her medications showed that the patient was on amlodipine, losartan, potassium supplement and hydrochlorothiazide 25 mg daily. She also takes magnesium oxide 400 mg twice a day. No SSRI. Review of Systems Review of Systems All other systems reviewed & are negative unless noted below or in HPI [facility] Medical History (Updated 04/03/23 @ [...] Surgical History (Updated 02/01/23 @ 14:30 by [employer]) History of tonsillectomy Problem List clean-up per [...] 10 Mg Tablet) 10 mg PO DAILY [facility] Stop: 04/02/24 08:59 Last Admin: 04/03/23 08:58 Dose: 10 mg Docusate Sodium (Docusate 100 Mg Capsule) 200 mg PO BID PRN PRN Reason: Constipation Stop: 04/01/24 19:57 Docusate Sodium (Docusate 100 Mg Capsule) 200 mg PO BID [facility] Stop: 04/02/24 08:59 Last Admin: 04/03/23 08:58 Dose: Not Given Hydralazine HCl (Hydralazine 20 Mg/Ml Vial) 10 mg IV-PUSH Q4H PRN PRN Reason: if SBP > 185 Stop: 04/01/24 19:57 Potassium Chloride/Sodium Chloride (0.9 % Nacl-20 Meq Kcl) 1,000 mls @ 75 mls/hr IV .[id number] [facility] Stop: 04/01/24 20:29 Last Admin: 04/02/23 21:56 Dose: 75 mls/hr Levothyroxine Sodium (Levothyroxine 88 Mcg Tablet) 88 mcg PO DAILY@0630 [facility] Stop: 04/02/24 06:29 Last Admin: 04/03/23 05:54 Dose: 88 mcg Losartan Potassium (Losartan 50 Mg Tablet) 100 mg PO DAILY [facility] Stop: 04/02/24 08:59 Last Admin: 04/03/23 08:58 Dose: 100 mg Pravastatin Sodium (Pravastatin 40 Mg Tablet) 80 mg PO DAILY [facility] Stop: 04/02/24 08:59 Last Admin: 04/03/23 08:58 [...] 01:50 04:48 MCHC 35.8 H (32.0-35.0) g/dL [place] # (Auto) 1.1 H (0.0-0.8) x10E3/uL Sodium [...] 04/03/23 Range/Units 08:00 10:38 MCHC (32.0-35.0) g/dL [place] # (Auto) (0.0-0.8) x10E3/uL Sodium 118 L* [...] stay Documented By: Gaudencio Romero MD 04/03/23 0612 Signed By: <Electronically signed by MD Gaudencio Romero> 04/03/23 140 [facility] Work Phone: 1(631) 562-215502-11-2024 History and physical note Author Natividad Gregory [facility] April 02, 2023 8:22pm Note Date/Time April 02, 2023 8:06pm [facility] [address] [place] [address] Hospitalist H&P Signed Patient: Hiram Madrid MR#: [id number] : 1935 Acct:[id number] Age/Sex: 87 / F Adm Date: 4 Loc: Room: [address] [place] [address] Type: ADM IN Attending Dr: Lucy Lockhart MD Copies to: MD Lucy Pickering MD Ruta Semaskiene, MD~ HPI DATE OF EXAMINATION: 04/02/23 CHIEF COMPLAINT: Hyponatremia HISTORY OF PRESENT ILLNESS: 87 years old female was transferred from [facility] for hyponatremia. Itseems like the patient [...] days ago she has been admitted to [facility] and discharged. Since then she still [...] Previous records in the computer system reviewed [facility] Medical History (Updated 04/02/23 @ [...] List clean-up per request of Phys. EHR [facility] Surgical History (Updated 02/01/23 @ 14:30 by [facility]) History of tonsillectomy Problem List clean-up per request of Phys. EHR Cmte History of salpingo-oophorectomy Problem List clean-up per request of Phys. EHR Cmte Hx of cholecystectomy Problem List clean-up per request of Phys. EHR Cmte History of appendectomy Problem List clean-up per request of Phys. EHR [facility] Family History (Updated 07/29/14 @ 12:15 by [...] <Electronically signed by Natividad Gregory MD> 04/02/232021 [facility] Work Phone: 1(149) 266-187311-22-2023 NoteNoted 7 beat run of NSVT on 1 week holter monitor, along with SVT, PVCs Recommended to continue coreg 25 mg bid, will place 30 day monitor, and obtain treadmill cardiolite stress test for ischemic evaluation.[facility]11-22-2023 NotePt reports that she has had 5 syncopal episodes since this Summer- some while having a BM, and other episodes while just up and walking.[facility]11-22-2023 NoteWill monitor with routine echocardiogram annually unless pt has concerning symptomsUnUniversity Hospitals Geauga Medical Center11-22-2023 NoteRecommended to continue ASA and pravastatinUnUniversity Hospitals Geauga Medical Center11-22-2023 Note Hypertension is stable Reviewed B/P log and typically in the mornings her b/p with well controlled 120's/70-80, and in the evenings can be up to 140/80 Continue all meds and will add toprolUnUniversity Hospitals Geauga Medical Center 01-11-2023 NoteContinue pravastatinUnUniversity Hospitals Geauga Medical Center11-22-2023 NoteWill monitor with routine echocardiogram annually unless pt has concerning symptomsUnUniversity Hospitals Geauga Medical Center11-22-2023 NoteWill monitor with routine echocardiogram annually unless pt has concerning symptomsUnUniversity Hospitals Geauga Medical Center11-22-2023 NotePatient here for 3 mo follow up valve disorder and carotid artery stenosis. She has had a few episodes of syncope since last visit. She recently wore Holter monitor. Says Dr. Daniels wants to add metoprolol but she does not want to add another medication. Review of Systems Cardiovascular: Positive for syncope. Hematologic/Lymphatic: Bruises/bleeds easily. All other systems reviewed and are negative.[facility] 01-11-2023 NoteUTP CARDIOLOGY PROGRESS NOTE HPI: [...] called and was evaluated in ED at [facility]. Admits she has had a couple syncopal episodes in the bathroom while having a BM- last one was at [employer]. States she also has had a couple while just up and walking- normal Day to Day activity. Daughter states that pt is usually out for about 1 minute. Of note patient was direct admitted to the [facility] end of August for electrolyte imbalances low sodium, low potassium, and acute anemia. She was evaluated at [facility] in October for ABD pain/ syncope, [...] The patient states she was shopping in [place] when she felt the need to have [...] a colonoscopy approximately 5 years ago at [facility]. HPI - Altered Mental Status General Chief [...] was someone in the bathroom in the yazidi and she have to go back and [...] tablet 3 levothyroxine (Syn (more content not included)...[facility]11-02-2023 Hospital Discharge instructions Patient Education 12/22/2022 [...] transplant. Follow these instructions at home: Take [id number]-htw-knrpabf and prescription medicines only as told by [...] provider. Document Revised: 05/26/2020 Document Reviewed: 05/26/2020 [employer] Patient Education 2022 [employer]. Follow Up Care 09/06/2022 13:10:43 With:MIKAYLA WEISS PA-C, URL Address: [address] [place] [address] [phone] When: Unknown Comments:6 mos w/ renal fxn (per PCP) [facility] Natal[place] 09-05-2023 NotePt message/ call that [...] needs to call for appointment Lesly Alaniz COIL TESTER Division of Cardiology, [facility]- [phone] Pager- [phone] Email- [email or web address] Hospitals Geaug[facility] Medical Center08-25-2023 NoteStable and non pitting currentlyUnUniversity Hospitals Geaug[facility] Medical Center 10-14-2022 NoteCurrently stable Pt to call for any recurrent syncope or concernsUnUniversity Hospitals Geauga Medical Center08-25-2023 NoteMild on recent echo No concerning symptomsUnUniversity Hospitals Geauga Medical Center08-25-2023 NoteContinue ASA and statinUnUniversity Hospitals Geauga Medical Center08-25-2023 NoteHypertension is uncontrolled 160/75- admits this is where her b/p is at home Increase coreg to 25 mg bid, continue losartan 100 mg, hydrochlorothiazide 25 mg, and amlodipine 10 mgUnUniversity Hospitals Geauga Medical Center08-25-2023 Note Continue pravastatinUnUniversity Hospitals Geauga Medical Center08-25-2023 NoteNo concerning symptoms Will continue to monitor with echocardiogramUnUniversity Hospitals Geaug[facility] 10-14-2022 NoteNo concerning symptoms Will continue to monitor with echocardiogramUnUniversity Hospitals Geauga Medical Center 10-14-2022 NotePatient here c/o LE edema. Says today they aren't as bad, but she states they're hard and sometimes painful. She has not had lab work since [facility] stay in July 2022. She denies chest pain, lightheadedness, and palpitations. Review of Systems Cardiovascular: Positive for dyspnea on exertion and leg swelling. Hematologic/Lymphatic: Bruises/bleeds easily. All other systems reviewed and are negative.[facility] 10-14-2022 NoteUTP CARDIOLOGY PROGRESS NOTE HPI: [...] was direct admitted to the [facility] end of August for electrolyte imbalances [...] Stable and non pitting currently RTC 3-6 monthsDay[facility]02-13-[facility] Note Chief [...] p.o. twice dominic (more content not included)... [facility] note No data available for this section [facility] Future Appointments Appointment Date:06/29/2023 09:30:00 AM Scheduled Provider:MIKAYLA WEISS PA-C Location:[facility] Appointment Type:URO Office Visit [facility] Evaluation noteNo assessment information available [facility] Work Phone: Evaluation note* Diagnosis Onset Date Resolution Status HTN (hypertension) acute Hyponatremia acute [facility] Work Phone: Hospital Discharge instructions No data available for this section [facility] Additional Instructions Take Naprosyn as prescribed for mild to moderate pain. Take Keflex as prescribed to prevent infection. Take Zofran as prescribed for nausea while taking oxycodone. Do not drive while taking oxycodone. Take Flomax daily as prescribed. Call the urologist listed below on Monday to schedule follow-up appointment. 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 * Back Pain (Kazakh) documented in this encounter* Discharge Instr - [...] most local grocery stores, pharmacies, and chain new[employer]entor-stores. ? If you have any questions about [...] Contact Information Primary Emergency Contact: Andrea Madrid [facility] Mobile Relation: Spouse Secondary Emergency Contact: Liliya Townsend Mobile Relation: Child Sweet Goods Machine Operator needed? No Past Surgical History: Past Surgical History: Procedure Laterality Date APPENDECTOMY BACK SURGERY CHOLECYSTECTOMY LUMBAR FUSION N/A 11/13/2018 PLIF L 3-4-5 DECOMPRESSION L3, L4 performed by Lenny Corral MD at [facility] Right Immunization History: There is no [...] Assisted Dressing Independent Toileting Independent Feeding Independent Garbage Stoker Independent Med Delivery whole Wound Care Documentation [...] select all that are sent with patient): {[facility] DME Belongings:[id number]} RN SIGNATURE: MANAGEMENT/SOCIAL WORK SECTION Inpatient Status Date: Patient was admitted to Inpatient Acute Rehab 11/15/18 Readmission Risk Assessment Score: Readmission Risk Risk of Unplanned Readmission: 12 Discharging to Facility/ Agency Name: Karan Sosa Address: Fax: Dialysis Facility (if applicable) Name: Address: Dialysis Schedule: Phone: Fax: Vehicle Detailer/Buyer Liaison signature: ICIAN SECTION Prognosis: Good Condition at [...] Date: 11/20/2018 Patient Name: Hiram Madrid Account: [id number] : 1935 (83 y.o.) Room: [place] [address] Diagnosis: Impaired mobility and gait secondary to [...] L4 performed by Lenny Corral MD at 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 Leisure & Hobbies: Cooking, reading, needlepoint Additional Comments: 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, has been relying more on dtr and spouse due toworsening weakness past few weeks Current Functional Status: ADL Equipment Provided: Sock aid, Integrity Consultant Feeding: Modified independent Grooming: Independent UE Bathing: [...] Limits Cognition Status: Cognition Overall Cognitive Status: [facility] Cognition Comment: 6 7 7 6 6 Perception Status: Perception Overall Perceptual Status: WF Sensation Status: Sensation Overall Sensation Status: [facility] Vision and Hearing Status: Vision Vision: Impaired Vision Exceptions: Wears glasses for reading Hearing Hearing: Exceptions to WF Hearing Exceptions: Hard of hearing/hearing concerns, Right [...] PM Yarely Gordon 11/20/2018 12:35 PM EDT [facility] MUSIC THERAPY Date: 11/20/2018 Patient Name: [...] interested in having music therapy again. [] [facility] will attempt to see pt again another day, if time allows. [x] Pt's planned d/c date is before [facility] is scheduled on unit again. [] Pt NOT interested in having music therapy again. BANG Ramos 11/20/2018 * Roselyn Schroeder, FRONT END MANAGER - 11/20/2018 9:59 AM EDT Occupational Therapy Facility/Department: [facility] Daily Treatment Note [...] 0930 Time Out 0940 Minutes 10 CARLA Mratinez * Roselyn Schroeder OTA - 11/20/2018 9:55 AM EDT Occupational Therapy Facility/Department: [facility] Daily Treatment Note [...] device (slide rail) Walk: 6 - Modified [place] Walks at least 150 feet with an ambulatory device, orthosis or prosthesis OR requires extra amount of time OR there is concern for safety Distance Walked: 200' Wheel Chair: 0 - Activity Not Assessed/Does Not Occur Stairs: 6 - Modified [place] Safely goes up and down at least [...] activities in PT, continue prophylaxis SOFIYA alicia, elevation and See MAR . 9. Complex [...] from Dr. Ellis Holguin D.O., PM&R Attending [phone] [facility] Yell * Khanh White LPN - 11/19/2018 6:00 [...] PLAN: Fever leukocytosis observe * Michelle Sharp, OTR/L - 11/19/2018 2:05 PM EDT Occupational Therapy Facility/Department: [facility] Daily Treatment Note [...] Minutes 30 CHRISTIANO Langford/Lloyd * Mikayla Lindsey TUFTING CREELER - 11/19/2018 1:09 PM EDT Physical Therapy Rehab Treatment Note Facility/Department: [facility] Room: R238/R238-01 NAME: [...] EDT Progress Note Patient: Hiram Madrid Unit/Bed: [facility]/R238-01 Date of : 1935 Acct: [id number] Admitting Diagnosis: Impaired mobility [Z74.09] Spinal stenosis [...] and tentative discharge home tomorrow. Follows with moving picture producer in [place]. 11/18/18: called by staff cytotechnologist regarding tachycardia. Pt was unaware of tachycardia. [...] to have + orthostatics. Denies hx of MO, CHF or arrhythmia. Follows with a moving picture producer from [place] for carotid artery disease and cardiac murmur. [...] to DC home and F/U with regular moving picture producer as outpatient Attending Supervising Physician's Attestation Statement The patient is a 83 y.o. female. I have performed a history and physical examination of the patient. I discussed the case with the physician nutritional assistant. I reviewed the patient's Past Medical [...] EDT Physical Therapy Rehab Treatment Note Facility/Department: [facility]: Hiram Madrid : 1935 (83 [...] EDT Physical Therapy Rehab Treatment Note Facility/Department: [facility] Room: R238/R238-01 NAME: [...] Neuromuscular Education Neuromuscular Comments: Pizano Initiated: other TUFTING CREELER finished it: pt scored a 42/56. Bed [...] education: 10 Therapeutic ex: 0 Mikayla Lindsey TUFTING CREELER, 11/19/18 at 11:59 AM * Khanh White LPN - 11/19/2018 9:15 AM EDT Assessment completed. Medicated with Percocet for 10/10 pain in lower back and left leg. Removed old drsg from lower back. Noted a scant amount of serosanguinous drainage. [place] intact. Sutures at lower part of incision intact. Cleanse incision with NS. Applied Neosporin oint to incision. Applied DSD. No back brace per Dr Corral. Call light in reach. Will continue to monitor. 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 Ellis Holguin D.O., PM&R Attending [address] [place] [address] Yell * Rachael Graf LPN - 11/18/2018 4:39 [...] and no guarding. Musculoskeletal: Back: Urine Culture [[id number]] Collected: 11/15/18 1905 Order Status: Completed Specimen: Urine, clean catch Updated: 11/17/18 0728 Urine Culture, Routine No growth 24 hours Narrative: ORDERED BY: ADDY COKER SOURCE: Urine Clean Catch COLLECTED: 11/15/18 19:05 ANTIBIOTICS AT DI.: RECEIVED : 11/15/18 19:05 Culture Blood #2 [[id number]] Collected: 11/15/18 1637 Order Status: Completed Specimen: Blood Updated: 11/16/18 1815 Culture, Blood 2 No Growth to date. Any change in status will be called. Narrative: ORDERED BY: ADDY COKER SOURCE: Blood COLLECTED: 11/15/18 16:37 ANTIBIOTICS AT DI.: RECEIVED : 11/15/18 16:42 Culture Blood #1 [[id number]] Collected: 11/15/18 1637 Order Status: Completed Specimen: [...] Unit/Bed: R238/R238-01 Date of : 1935 Acct: [id number] Admitting Diagnosis: Impaired mobility [Z74.09] Spinal stenosis [...] L4 performed by Lenny Corral MD at [facility] Right History reviewed. No pertinent family [...] on phone: None Gets together: None Attends buddhism service: None Active member of club or organization: None Attends meetings of clubs or organizations: None Relationship status: None Intimate partner violence: Fear of current or ex partner: None Emotionally abused: None Physically abused: None Forced sexual activity: None Other Topics Concern None Social History Narrative None Subjective/HPI: called by staff cytotechnologist regarding tachycardia. Pt was unaware of tachycardia. [...] woman from homewith spouse who presents to [facility] with the above deficits which impact [...] up labs. Blanca Holguin D.O., PM&R Attending [phone] [facility] Yell * Dana Craig RN - 11/17/2018 5:45 PM EDT Monitor room called, said pt had about 18 sec run of svt up to 218; notified cardio. * Faye Summers PTA - 11/17/2018 4:07 PM EDT Physical Therapy Rehab Treatment Note Facility/Department: [facility] Room: [facility]/R238-01 NAME: Hiram Madrid : 1935 (83 y.o.) [...] lactolose. Will continue to monitor. * Roselyn Schroeder, FRONT END MANAGER - 11/17/2018 2:51 PM EDT Occupational Therapy Facility/Department: [facility] Daily Treatment Note [...] history that includes back surgery; Cholecystectomy; Appendectomy; tesas and bso (cervix removed) (Right); and lumbar [...] EDT Physical Therapy Rehab Treatment Note Facility/Department: [facility] Room: [place] [address] NAME: Hiram Madrid : 1935 (83 y.o.) [...] EDT Physical Therapy Rehab Treatment Note Facility/Department: [facility] Room: [place] [address] NAME: Hiram Madrid : 1935 (83 y.o.) [...] 11/17/2018 8:43 AM EDT Occupational Therapy Facility/Department: [facility] Daily Treatment Note [...] at below status. ADL Equipment Provided: Sock aid;Integrity Consultant Grooming: Independent UE Bathing: Setup LE Bathing: [...] Out 0830 Minutes 60 CARLA Martinez * John Paul-Mary Santana MD - 11/16/2018 8:20 PM EDT Subjective: [...] woman from homewith spouse who presents to [facility] with the above deficits which impact [...] episodic insomnia with situational adjustment disorder: prn Yvroseien, monitor for day time sedation. 7. Falls [...] consult,check dopplers Blanca Holguin D.O., PM&R Attending [phone] [facility] Yell * Jessica Irvin, OTR/L - 11/16/2018 4:14 PM EDT Occupational Therapy Facility/Department: [facility] Daily Treatment Note NAME: Hiram Madrid : 1935 Date of Service: 11/16/2018 Discharge Recommendations: Continue to assess pending progress OT Equipment Recommendations Other: Continue to assess Assessment Performance deficits / Impairments: Decreased functional mobility ;Decreased ADL status;Decreased strength;Decreased balance;Decreased endurance;Decreased high- level IADLs Assessment: Pt. is an 83 year old woman from home with spouse who presents to [facility] with the above deficits which impact [...] Pain: Yes Objective The patient completed the [facility] Mental Status (UMS) Examination [...] Unit/Bed: R238/R238-01 Date of : 1935 Acct: [id number] Admitting Diagnosis: Impaired mobility [Z74.09] Spinal stenosis of lumbosacral region [M48.07] Admit Date: 11/15/2018 Hospital Day: 1 Current Medications: Scheduled Meds: [START ON 11/17/2018] enoxaparin 40 mg Subcutaneous Daily qhctmmkj-boffoxcrwl-smytxuiow Topical BID docusate sodium 100 mg Oral [...] to have + orthostatics. Denies hx of MO, CHF or arrhythmia. Follows with a moving picture producer from [place] for carotid artery disease and cardiac murmur. [...] L4 performed by Lenny Corral MD at [facility] Right Social History [...] on phone: None Gets together: None Attends buddhism service: None Active member of club or [...] 100 mg Oral BID Shyla Renato Vizcaino REGISTERED DENTAL ASSISTANT - MK famotidine (PEPCID) tablet 20 mg 20 mg Oral BID Shyla Renato Vizcaino REGISTERED DENTAL ASSISTANT - TRIMMER SAWYER [START ON 11/16/2018] amLODIPine (NORVASC) tablet 10 mg 10 mg Oral Daily Shyla Renato Vizcaino REGISTERED DENTAL ASSISTANT - TRIMMER SAWYER [START ON 11/16/2018] aspirin EC tablet 81 mg 81 mg Oral Daily Shyla T Carrillo REGISTERED DENTAL ASSISTANT - TRIMMER SAWYER cephALEXin (KEFLEX) capsule 500 mg 500 mg Oral 3 times per day Shyla T Carrillo REGISTERED DENTAL ASSISTANT - TRIMMER SAWYER gabapentin (NEURONTIN) capsule 100 mg 100 mg Oral TID Shyla Renato Vizcaino APRN - MK [START ON 11/16/2018] levothyroxine (SYNTHROID) tablet 88 mcg 88 mcg Oral Daily Shyla Gross EDY Vizcaino- TRIMMER SAWYER [START ON 11/16/2018] losartan (COZAAR) tablet 100 mg 100 mg Oral Daily Shyla Gross EDY Vizcaino - TRIMMER SAWYER oxyCODONE-acetaminophen (PERCOCET) 5-325 MG per tablet 1 tablet 1 tablet Oral Q4H PRN Shyla T EDY Vizcaino - TRIMMER SAWYER potassium chloride (KLOR-CON) packet 20 mEq 20 mEq Oral BID Shyla Gross BLANK VizcainoN - TRIMMER SAWYER pravastatin (PRAVACHOL) tablet 80 mg 80 mg Oral Daily Shyla Gross BLANK VizcainoN - TRIMMER SAWYER polyethylene glycol (GLYCOLAX) packet 17 g 17 [...] Monitor on tele 7. GI/DVT proph * Rosalia Mikayla, TUFTING CREELER - 11/16/2018 2:04 PM EDT Physical Therapy Rehab Treatment Note Facility/Department: [facility] Room: R238/R238-01 NAME: [...] education: 0 Therapeutic ex: 23 Mikayla Lindsey TUFTING CREELER, 11/16/18 at 3:57 PM * Rhiannon Blank AUTOMATIC RIVETING MACHINE OPERATOR - 11/16/2018 11:21 AM EDT Speech [...] from home with spouse who presents to [facility] with the above deficits which impact [...] to increasing pain) Transfer Assistance: Independent Active Case Aide: Yes Mode of Transportation: Car Type of [...] Problem-Solvin, Memory: 6 Perception Overall Perceptual Status: [facility] Sensation Overall Sensation Status: WFL ROM LUE [...] 66 Comment: Transfer care to supervising OTR/L STIANO Lee/Lloyd * Jena Vega, TUFTING CREELER - 11/16/2018 10:35 AM EDT Physical Therapy Rehab Treatment Note Facility/Department: [facility] Room: R238/R238-01 NAME: [...] Neuro re education:15 Therapeutic ex:15 Jena Vega, TUFTING CREELER, 11/16/18 at 11:10 AM * Jessenia Gordon, ONLINE COMMUNITY MANAGER - 11/16/2018 9:35 AM EDT [facility] RECREATIONAL THERAPY Initial Evaluation Date: 11/16/2018 [...] hearing in left ear) Patient seen at: [phone] Recreation Therapist received referral, chart reviewed and [...] her flower bed. Past leisure interests: Walking, yazidi, had pets Future leisure interests: Emotional Observed/noted: Cooperative and Pleasant Affect: Appropriate Comments: Today s Session included: Increased Socialization, Provided active listening and Benefits of the patient's leisure and recreation pursuits being utilized as stress relievers Recommendations to utilize Recreation Therapy services, its supported services and groups include: [facility], Pet Therapy, Leisure [...] provided: Yes Learner: Patient, family Education provided: [facility] Method of Education: Discussion [...] recall (e.g. memory book) Electronically signed by: Jessenia Gordon, ONLINE COMMUNITY MANAGER Date: 11/16/2018 * Lakisha Trevino, PT - 11/16/2018 8:20 AM EDT Facility/Department: [facility] Rehabilitation Initial Assessment: Physical Therapy Room: [place] [address] NAME: Hiram Madrid : 1935 Date of [...] L4 performed by Lenny Corral MD at [facility] Right Chart Reviewed: Yes Patient assessed [...] to increasing pain) Transfer Assistance: Independent Active Case Aide: Yes Additional Comments: 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, [...] side to side to initiate log roll assistant terminal manager goals assistant terminal manager goal 1: pt to be indep with bed mobility shelter goal 2: pt to be indep with bed transfers assistant terminal manager goal 3: pt to [id number] ft with supervision shelter goal 4: pt to navigate 4 steps with SBA assistant terminal manager goal 5: 30/56 for [place] balance testing ELOS: Plan weeks: 2 Therapy Time: Individual Time In 1000 Time Out 1030 Minutes 30 Lakisha Trevino PT, 11/16/18 at 12:00 PM * Marybel Ackerman, [facility] - 11/15/2018 11:29 PM EDT Tashia [...] puffs by inhalation with spacer [] Ipratropium [place] 0.02% unit dose by aerosol Ipratropium [place] MDI 2 puffs by inhalation with spacer [] Duoneb (Ipratropium + Albuterol) unit dose by aerosol Ipratropium MDI + Albuterol MDI 2 puffs byinhalation w/spacer MDI to Aerosol [] Albuterol Sulfate MDI Albuterol Sulfate 0.083% unit dose by aerosol [] Levalbuterol MDI 2 puffs by inhalation Levalbuterol 1.25 mg unit dose by aerosol [] Ipratropium [place] MDI by inhalation Ipratropium [place] 0.02% unit dose by aerosol [] Combivent (Ipratropium + Albuterol) MDI by inhalation Duoneb (Ipratropium + Albuterol) unit doseby aerosol Treatment Assessment [Frequency/Schedule]: Change frequency to: ACCUNEB Q4 PRN per Protocol, P&T, [facility] [place] Points 0 1 2 3 4 Pulmonary [...] PRN 5. (0-5) Freq Q4prn * Li Winslow, JANET - 11/15/2018 5:56 PM EDT Patient admitted [...] of lumbosacral region Impaired mobility [facility] [address] [place] [address] Chief Complaint and Reason for Visit Chief Complaint SYNCOPE Chief Complaint hyponatremia hyponatremia hyponatremia Reason for Visit HTN (hypertension) Hyponatremia Chief Complaint hyponatremia hyponatremia hyponatremia high bp Reason for Visit HTN (hypertension) Hyponatremia Chief Complaint hyponatremia hyponatremia hyponatremia high bp Unknown Reason for Visit HTN (hypertension) Hyponatremia Additional Source Comments INFORMATION SOURCE (unrecogn ized section and content) DATE CREATED AUTHOR 04/20/2018 [facility] DATE CREATED AUTHOR AUTHOR'S ORGANIZ ATION 11/24/2018 [facility] DATE CREATED AUTHOR AUTHOR'S ORGANIZ ATION 06/14/2022 [facility] DATE CREATED AUTHOR AUTHOR'S ORGANIZ ATION 01/13/2023 [facility] DATE CREATED AUTHOR AUTHOR'S ORGANIZ ATION 06/24/2023 [facility] DATE CREATED AUTHOR AUTHOR'S ORGANIZ ATION 06/30/2023 [facility] Reason for Visit (unrecogniz ed section and content) Reason Comments Back Pain Left low back pain r adiates down left leg. Pain flared up last monday Status Reason Specialty Diagnoses / Procedures Referre d By Contact Referred To Contact Diagnoses Intractable back pain Lenny Corral MD [address] [place] [address] [facility] Patient Care team informatio n [...] Gaudencio Romero MD Other Provider Active Start: [email or web address] 2023 End: April 06, 2023 Katie Pearce COIL TESTER-C Other Provider Active Start: April 02, 2023 End: April 06, 2023 Fiona Magana MD Other Provider Active Start: 2023 End: April 06, 2023 Cachorro Real MD Other Provider Active Star t: April 02, 2023 End: April 06, 2023 Warner Sood MD Other Provider Active Start: April 02, 2023 End: April 06, 2023 Boni Choi MD Other Provider [facility] End: April 06, 2023 Turner Frank [...] Other Provider Active Start: April 03, 2023 Katie Pearce COIL TESTER-C Other Provider Active Start: April 03, 2023 Fiona Magana MD Other Provider Active Start: [facility] 2023 Cachorro Real MD Other Provider Active Star t: April 03, 2023 Warner Sood MD Other Provider Active Start: April 03, 2023 Boni Choi MD Other Provider Active Start: Dana tolbert 2023 Turner Frank DO Other Provider Active Start: April 03, 2023 Team Status: Inactive Member Role Status Dates Addy Daniels MD Primary Care Provider Active Start: April 15, 2023 End: April 15, 2023 Turner Nielsen MD Emergency Provider Active St art: April 15, 2023 End: April 15, 2023 Team Status: Active Member Role Status Dates Addy Daniels MD Primary Care Provide r, Attending Provider Active Start: April 12, 2023 Team Status: Inactive Member Role Status Dates Turner Doss MD [facility] Attending Provider Active Start: June 21, 2023 End: June 21, 2023 Goals (unrecognized section and content) Goals [...] BE BASED ON THE PRIMARY CLINICAL RECORDS. [employer] provides no warranty or guarantee of the accuracy or completeness of information in this document.
[2023-07-12 13:27] LABS: Alanine Aminotransferase 29 U/L (14-59); Albumin Globulin Ratio 1.2; Albumin Level 3.5 g/dL (3.4-5.0); Alkaline Phosphatase 67 U/L (46-116); Anion Gap 11.6; Aspartate Amino Transferase 15 U/L (15-37); BUN Creatinine Ratio 25.4; Bilirubin Total 0.6 mg/dL (0.2-1.0); Carbon Dioxide 27.7 mmol/L (21.0-32.0); Chloride 96 mmol/L (98-107); Estimated GFR (African America >60 (>=60); Estimated GFR (Non-African Ame >60 (>=60); Glucose 117 mg/dL (74-106); Potassium 4.3 mmol/L (3.5-5.1); Sodium 131 mmol/L (136-145); Total Protein 6.5 g/dL (6.4-8.2)
== END 2023-07-12 11:58 | disposition home or self-care (01) ==
LOC: LAB 11:57
PROVIDERS: PCP Family Medicine; Visit Provider Family Medicine
DX: E87.1 Hypo-osmolality and hyponatremia (principal)
CPT/HCPCS: 36415; 80053

== ENCOUNTER 2023-07-26 12:51 | Outpatient (REF) | payer MEDICARE, OTHER, SELFPAY ==
[2023-07-26 14:44] LABS: Alanine Aminotransferase 25 U/L (14-59); Albumin Globulin Ratio 1.1; Albumin Level 3.2 g/dL (3.4-5.0); Alkaline Phosphatase 69 U/L (46-116); Anion Gap 13.4; Aspartate Amino Transferase 15 U/L (15-37); BUN Creatinine Ratio 21.1; Bilirubin Total 0.7 mg/dL (0.2-1.0); Calcium 8.8 mg/dL (8.5-10.1); Carbon Dioxide 27.6 mmol/L (21.0-32.0); Chloride 96 mmol/L (98-107); Estimated GFR (African America >60 (>=60); Estimated GFR (Non-African Ame >60 (>=60); Glucose 82 mg/dL (74-106); Sodium 133 mmol/L (136-145); Total Protein 6.2 g/dL (6.4-8.2)
== END 2023-07-26 12:52 | disposition home or self-care (01) ==
LOC: LAB 12:51
PROVIDERS: PCP Family Medicine; Visit Provider Family Medicine
DX: E87.1 Hypo-osmolality and hyponatremia (principal)
CPT/HCPCS: 36415; 80053

== ENCOUNTER 2023-08-15 11:40 | Outpatient (OUT) | payer MEDICARE, OTHER, SELFPAY ==
[2023-08-15 12:40] LABS: Anion Gap 9.4; BUN Creatinine Ratio 18.5; Calcium 8.6 mg/dL (8.5-10.1); Carbon Dioxide 29.9 mmol/L (21.0-32.0); Chloride 96 mmol/L (98-107); Estimated GFR (African America >60 (>=60); Estimated GFR (Non-African Ame >60 (>=60); Glucose 79 mg/dL (74-106); Potassium 4.3 mmol/L (3.5-5.1); Sodium 131 mmol/L (136-145)
== END 2023-08-15 11:41 | disposition home or self-care (01) ==
LOC: LAB 11:41
PROVIDERS: PCP Family Medicine; Visit Provider Family Medicine
DX: E87.1 Hypo-osmolality and hyponatremia (principal)
CPT/HCPCS: 36415; 80048

== ENCOUNTER 2023-08-31 16:21 | Outpatient (OUT) | payer MEDICARE, OTHER, SELFPAY ==
[2023-08-31 17:31] LABS: Anion Gap 10.3; BUN Creatinine Ratio 23.5; Calcium 8.8 mg/dL (8.5-10.1); Carbon Dioxide 27.6 mmol/L (21.0-32.0); Chloride 93 mmol/L (98-107); Estimated GFR (African America >60 (>=60); Estimated GFR (Non-African Ame >60 (>=60); Glucose 108 mg/dL (74-106); Potassium 3.9 mmol/L (3.5-5.1); Sodium 127 mmol/L (136-145)
== END 2023-08-31 16:22 | disposition home or self-care (01) ==
LOC: LAB 16:23
PROVIDERS: PCP Family Medicine; Visit Provider Family Medicine
DX: E87.1 Hypo-osmolality and hyponatremia (principal)
CPT/HCPCS: 36415; 80048

== ENCOUNTER 2023-09-04 10:06 | Outpatient (OUT) | payer MEDICARE, OTHER, SELFPAY ==
[2023-09-04 11:54] LABS: Alanine Aminotransferase 27 U/L (14-59); Albumin Globulin Ratio 0.9; Albumin Level 3.1 g/dL (3.4-5.0); Alkaline Phosphatase 66 U/L (46-116); Anion Gap 11.6; Aspartate Amino Transferase 19 U/L (15-37); BUN Creatinine Ratio 15.7; Bilirubin Total 0.6 mg/dL (0.2-1.0); Calcium 8.5 mg/dL (8.5-10.1); Carbon Dioxide 26.5 mmol/L (21.0-32.0); Chloride 99 mmol/L (98-107); Estimated GFR (African America >60 (>=60); Estimated GFR (Non-African Ame >60 (>=60); Globulin 3.4 g/dL; Glucose 123 mg/dL (74-106); Potassium 4.1 mmol/L (3.5-5.1); Sodium 133 mmol/L (136-145); Total Protein 6.5 g/dL (6.4-8.2)
== END 2023-09-04 10:07 | disposition home or self-care (01) ==
LOC: LAB 10:07
PROVIDERS: PCP Family Medicine; Visit Provider Family Medicine
DX: E87.1 Hypo-osmolality and hyponatremia (principal)
CPT/HCPCS: 36415; 80053

== ENCOUNTER 2023-09-29 11:53 | Outpatient (RCR) | payer MEDICARE, OTHER, SELFPAY ==
--- OUTSIDE RECORDS SUMMARY | 2023-09-29 12:06 | XMS_ITS | CCD ---
Author Organization [facility] CliniSywv Care Team Providers Care Plaster Mechanic Name Role Phone PHYSICIAN, DEFAULT Admitting Unavailable [...] Care Unavailable Calista Aceves Primary Care Provider [phone] CALISTA ACEVES Primary Care Physician ADELSO, DR PADILLA Consulting Unavailable CARLAY ., DR BOLAÑOS Primary Care Unavailable ADELSO, DR PADILLA Attending Unavailable ADELSO, DR PADILLA Admitting Unavailable JEREMIAH .DR BOLAÑOS Primary Care Unavailable GUILLERMINAPATHYousuf ., TYLER Attending Kerry vailable LAKSHMIPATHYousuf ., TYLER Admitting Kerry vailable HOYousuf ., DR BOLAÑOS Primary Care Unavailable JEREMIAH [...] Unavailable HOY ., DR BOLAÑOS Attending Unavailable HOYousuf ., [...] Unavailable ACEVES, DR CALISTA Pereira Attending Unavailable ACEVSE, DR CALISTA Pereira Admitting Unavailable ZIEBER, DR JESUS Mckeon Consulting Unavailable ACEVES, DR CALISTA Pereira Primary Care Unavailable ACEVES, DR CALISTA Pereira Attending Unavailable ACEVES, DR CALISTA Pereira Admitting Unavailable ACEVES, DR CALISTA Pereira Consulting Unavailable HOY ., DR BOLAÑOS Consulting Unavailable HOY ., DR BOLAÑOS Primary Care Unavailable JEREMIAH ., DR BOLAÑOS Attending Unavailable JEREMIAH ., DR BOLAÑOS Admitting Unavailable MD Addy Daniels Primary Care Provider [phone] DO Camacho Cooper Emergency Provider [facility] Addy Euceda Primary Care Physician VALERIE DARDEN Attending Unavailable LESLY ALANIZ Attending Unavailable LESLY ALANIZ Attending Unavailable MD Addy Daniels Primary Care Provider MD Lucy Lockhart Admit Provider MD Gaudencio Romero Other Provider KAZ Pearce-C Katie Other Provider Unavailable MD Fiona Magana Other Provider MD Cachorro Real Other Provider MD Warner Sood Other Provider MD Boni Choi Other Provider DO Turner Frank Attending Provider [phone] MD Turner Nielsen Emergency Provider [phone] MD Addy Daniels Primary Care Provider MD Lucy Lockhart Admit Provider [phone] MD Gaudencio Romero Other Provider Ramses, LAW RESEARCHER-C Katie Other Provider Unavailable MD Fiona Magana Other Provider MD Cachorro Rael Other Provider MD Warner Sood Other Provider MD Boni Choi Other Provider DO Turner Frank Attending Provider [phone] MD Turner Nielsen Emergency Provider [phone] MD Turner Doss Attending Provider uTrner Nielsen Admitting Unavailable Turner Nielsen Attending Unavailable Addy Daniels Primary Care Unavailable Turner Doss Admitting Unavailable Turner Doss Attending Unavailable Lucy Lockhart Admitting Unavailable Addy Daniels Primary Care Unavailable Gaudencio Romero Consulting Unavailable Turner Frank Attending Unavailable Katie Pearce Consulting Unavailable Fiona Magana Consulting Unavailable Cachorro Real Consulting Unavailable Barrie, Warner Consulting Unavailable Boni Choi Consulting Unavailable Turner DOSS Attending Unavailable Addy Daniels Unavailable Turner DOSS Attending Unavailable Turner DOSS Attending Unavailable MIKAYLA WEISS Attending Unavailable MIKAYLA WEISS Attending Unavailable Allergies Allergy Classification Reported Allergen(s) Allergy Type Date of Onset Reaction(s) Facility (10 sources) predniSONE; Translations: [prednisone] Drug Allergy 8 Hives, Eruption of skin (disorder) [place] (2 sources) predniSONE Drug Allergy 7 [facility] (8 sources) atorvastatin; Translations: [atorvastatin] Drug Allergy 3 Unknown (qualifier value), Weal (disorder) [facility] (4 sources) Ibuprofen; Translations: [ibuprofen] Drug Allergy Unknown (qualifier value), Stomach ache (finding) [facility] (4 sources) Corticosteroids; Translations: [Corticosteroids (Glucocorticoids )] Allergy to substance [address] [facility] (1 source) atorvastatin Drug Allergy [address] [facility] (1 source) predniSONE Drug Allergy [address] [facility] Medications Current Medications Medication [...] mg Tablet Active 1 TAB PO Daily 21 21 February 15th, 2024 1:04pm aspirin 81 mg oral capsule (9 [...] Antibacterial, Polymyxin-class Antibacterial Start: 11-16-2018 End: 11-18-2018 qwbtmakf-lvbsljxcgu-jeimdihx n (NEOSPORIN) ointment carvedilol 6.25 mg oral [...] Ondansetron Hcl Active 4 MG PO Daily 06 24August 05, 2022 12:00am Start: 11-05-2018 4 mg, [...] Date: 04/19/23 Status: Ordered polyethylene glycol 3350 06662 mg powder for oral solution (1 source) Osmotic Laxative Start: 11-15-2018 polyethylene glycol (GLYCOLAX) packet 17 g Potassium Chloride (12 sources) Start: 08-10-2022 Potassium Chlo ride (Vyc-Ulkp-Try 10) 20 mEq, Oral, TID Start Date: 08/10/22 Status: Ordered Start: 08-10-2022 Potassium Chlo ride (Rzi-Zksj-Tfu 10) mEq, Oral, BID Start Date: 08/10/22 [...] 0 Start Date: 08/09/22 Status: Ordered sennosides, mcfp 8.6 mg oral tablet (1 [...] MG PO Twice daily 14 7 August 05, 2022 12:00am April 02, 2023 [...] 2 tab(s), Refills(s) 0, Pharmacy: [facility] 1986, 155, cm, 08/10/22 9:03:00 EDT, Height/Length [...] Twice daily 10 August 05, 2022 12:00am April 02, 2023 [...] sources) Kidney stone; Translations: [Calculus of kidney] 08-05-2022 Episodic Cardiac dysrhythmias (3 sources) Atrial [...] hypertension; Translations: [Hypertensive disorder] Onset: 07-28-2021 Chronic 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 [...] [Lumbar spondylosis] Onset: 11-13-2018 11-13-2018 Chronic Syncope (9 sources) Vasovagal syncope; Translations: [Syncope] Onset: 04-04-2022 11-19-2018 Episodic Thyroid disorders (3 sources) Hypothyroidism, unspecified; Translations: [...] Translations: [Impaired mobility] Onset: 11-15-2018 11-15-2018 Episodic Fluid and electrolyte disorders (20 sources) Hypo-osmolality and hyponatremia; Translations: [Dehydration] Onset: 11-09-2021 Episodic Genitourinary symptoms and ill-defined conditions (1 source) Personal history of urinary (tract) infections; Translations: [PERS HX URINARY TRACT INFECTIONS] Onset: 12-31-2021 Episodic Malaise and fatigue (1 source) Weakness; Translations: [WEAKNESS] Onset: 12-31-2021 Episodic 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 source) watermaster (current) use of aspirin; Translations: [RETIREMENT CURRENT USE OF ASPIRIN] Onset: 12-31-2021 Episodic 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 source) Other manager intermediate (current) drug therapy; Translations: [OTH RETIREMENT CURRENT DRUG THERAPY] Onset: 12-31-2021 Episodic Residual codes; unclassified (2 sources) Localized edema; Translations: [Localized edema] Onset: 04-04-2022 Episodic Spondylosis; intervertebral disc disorders; other back problems (10 sources) Lumbar radiculopathy; Translations: [Intractable low back pain] Onset: 11-04-2018 11-04-2018 Episodic Unclassified (3 sources) Long-term current use of aspirin 08-10-2022 Unclassified (1 source) Other ventricular tachycardia; Translations: [Other ventricular tachycardia] Onset: 01-11-2023 Results Test Name Value Interpretation Reference Range Facility Reminderson 09-26-2023 Reminders Reminders - From: Jacquie Gan To: EU - Recalls Abhishek; Sent: 12/22/2022 12:30:05 EDT Show up: 05/23/2023 12:30:00 EDT Subject: JAC and BUN/Creatinine prior to appt Reminder Message Please Remember to:_have pt schedule JAC prior to appt. Please look for BUN/Cr labs from PCP. If unable to locate recent labs, send pt order to complete this. Pt cancelled appt. Separate message to PRW regarding tracking pt. Normal [facility] Ambulatory Visit Summaryon 0 06-28-2023 Ambulatory Visit Summary HIRAM MADRID Crystal :1935 Visit Date:06/28/2023 Ambulatory Visit Instructions Your [...] mg DR Tab) potassium chloride (Potassium Chloride (Rkq-Oodv-Dcl 10)) pravastatin (pravastatin 80 mg Tab) Procedures Performed Excision of basal cell carcinoma (06/21/2023), Accessory mobilization of the lumbar spine, Appendectomy, Bilateral salpingo-oophorectom y, Cataract extraction and insertion of intraocular lens, [...] or concerns Unchanged potassium chloride (Potassium Chloride (Nrj-Wsav-Hyr 10)) 20 Milliequivalent By Mouth 3 times [...] choosing us for your care. Chago Russo [facility] General Surgery Office/Clini c Noteon 06-28-2023 General [...] mobilization of the lumbar spine, Appendectomy, Bilateral salpingo-oophorectom y, Cataract extraction and insertion of intraocular lens, [...] mg= 1 tab(s), Oral, Daily Potassium Chloride (Llb-Aklt-Dit 10), 20 mEq, Oral, TID pravastatin 80 [...] influenza virus vaccine, inactivated 12/11/2014 Recorded Normal [facility] Comment on above: Result Comment: Elec tronically Signed By: ROMARIO DUMONT, Turner Connor\Date and Time Signed: 06/28/23 15:02 EDT Pathology Noteon 06-26-2023 Pathology Note [id number] #1.00TIFF Normal [facility] Operative Reporton Operative Report [id number] #1.00TIFF Normal [facility] Carlos 06-21-2023 L Specimen: [id number] Received: 06/22/23 Status: SOUT Req Num: [id number] Spec Type: Surgical Subm Dr: Turner Doss MD FACS Tissues: A Skin-Other than Cyst, tag, debridement or plastic repair (LT CHEEK) Procedures: HE, Gross/Micro L4 Age/ Patient Sex Location Account Attending Physician Hiram Madrid 87/F LABELL [id number] Turner Doss MD FACS SPEC NUM: [id number] RECD: 06/22/23 STATUS: BEST REQ NUM: [id number] DI: 06/21/[address]: Turner Doss MD FACS ENTERED: 06/22/23 [facility] DR: Lucian Avilez SPEC TYPE: Surgical DEPT: [...] Changing lesion left cheek TW CPT Codes 88083 Specimen: [id number] Received: 06/22/23 Status: BEST Kandice Num: [id number] Spec Type: Surgical Subm Dr: Turner Doss MD [facility] Tissues: A Skin-Other than Cyst, tag, debridement or plastic repair (LT CHEEK) Procedures: Antonio GOYAL/Karyna L4 Patient: Hiram Madrid [id number] (Continued) Signed (signature on file) Ángel Dodson MD 06/23/23 1634 Normal [facility] Consent for Procedure/Surger bernice 05-04-2023 Consent for Procedure/Surgery [id number] #1.00TIFF [facility] Facesheeton 05-04-2023 Facesheet [id number] #1.00TIFF [facility] Ambulatory Visit Summaryon 0 05-03-2023 Ambulatory Visit [...] mg DR Tab) potassium chloride (Potassium Chloride (Shb-Hsfo-Hxy 10)) pravastatin (pravastatin 80 mg Tab) Procedures Performed Accessory mobilization of the lumbar spine, Appendectomy, Bilateral salpingo-oophorectom y, Cataract extraction and insertion of intraocular lens, Cholecystectomy, Colonoscopy, Fusion of lumbar spine, Tonsillectomy. Discharge Vitals Heart Rate (Peripheral) 76 Respiratory Rate 16 Blood Pressure 156/82 Height 155 cm Height 61 in Weight 59.8 kg Weight 131.56 lb BMI 24.89 What to do next Scheduled Follow-Up Appointments June. 2023 9:30 AM EDT With: MIKAYLA WEISS PA-C Where: [facility] Physician Referralon 024 Physician Referral [id number] #1.00TIFF [facility] Physician Referralon 024 Physician Referral [id number] #1.00TIFF [facility] Laboratory - Chemistry and C hemistry - challengeon 04-12-2023 Calcium [Mass/Vol] 8.9 mg/dL [facility] Chloride [Moles/Vol] 98 mmol/L [facility] CO2 [Moles/Vol] 25.9 mmol/L [facility] Creatinine [Mass/Vol] 0.76 mg/dL [facility] Glucose [Mass/Vol] 113 mg/dL [facility] Potassium [Moles/Vol] 4.0 mmol/L [facility] Sodium [Moles/Vol] 135 mmol/L [facility] Urea nitrogen [Mass/Vol] 12.0 mg/dL [facility] Basic Metabolic Panelon 03-23 Creatinine Clr Calc Pharmacy 42.78 Normal [facility] Comment on above: Result Comment: PERF ORMED BY: [place] [address] PATHOLOGIST CHAIN MENDER GOSIA MCADAMS M.D. Performed By: #### T 4F, BMP #### [address] GFR/1.73 sq M.predicted MDRD (S/P/Bld) [Vol rate/Area] mL/min/{1.73_m2} Normal [facility] Comment on above: Performed By: #### T 4F, BMP #### [place] [address] [place] Calcium [Mass/volume] in Ser um or PlasmaOrdered By: Turner Frank on 04-05-2023 Calcium [Mass/Vol] 9.2 mg/dL Normal 8.6-10.3 [facility] Comment on above: Performed By: #### T 4F, BMP #### [facility] [address] [place] [address] [place] Carbon dioxide, total [Moles /volume] in Serum or PlasmaOrdered By: Turner Frank on 04-05-2023 CO2 [Moles/Vol] 27.7 mmol/L Normal 21.0-31.0 [facility] Comment on above: Performed By: #### T 4F, BMP #### [facility] [address] [place] [address] [place] Chloride [Moles/volume] in S willa or PlasmaOrdered By: Turner Frank on 04-05-2023 Chloride [Moles/Vol] 91 mmol/L Low 98-107 [facility] Comment on above: Performed By: #### T 4F, BMP #### [facility] [address] Creatinine [Mass/volume] in Serum or PlasmaOrdered By: Turner Frank on 04-05-2023 Creatinine [Mass/Vol] 0.56 mg/dL Low 0.60-1.20 [facility] Comment on above: Performed By: #### T 4F, BMP #### [facility] [address] Glucose [Mass/volume] in Ser um or PlasmaOrdered By: Turner Frank on 04-05-2023 Glucose [Mass/Vol] 116 mg/dL High 70-100 [facility] Comment on above: ADA recommended refe rence rangeRandom Glucose Reference Range is dependent on time and content of last meal. Glucose of more than 200 mg/dL in a nonstressed, ambulatory subject supports the diagnosis of Diabetes Mellitus. Result Comment: [place] om Glucose Reference Range is dependent on time and content of last meal. Glucose of more than 200 mg/dL in a nonstressed, ambulatory subject supports the diagnosis of Diabetes Mellitus. ADA recommended reference range Performed By: #### T 4F, BMP #### [facility] [address] [place] [address] No Panel InformationOrdered By: Turner Frank on 04-05-2023 Estimated GFR (CKD-EPI) > 60.0 mL/Min [facility] Creatinine Clearance (Chem 42.[address] [facility] Potassium [Moles/volume] in Serum or PlasmaOrdered By: Turner Frank on 04-05-2023 Potassium [Moles/Vol] 3.5 mmol/L Normal 3.5-5.1 [facility] Comment on above: Performed By: #### T 4F, BMP #### [facility] [address] Serum or plasma anion gap de terminationOrdered By: Turner Frank on 04-05-2023 Anion gap [Moles/Vol] 14.8 mmol/L Normal 6.0-15.0 [facility] Comment on above: Performed By: #### T 4F, BMP #### [address] Sodium [Moles/volume] in Ser um or PlasmaOrdered By: Turner Frank on 04-05-2023 Sodium [Moles/Vol] 130 mmol/L Low 136-145 [facility] Comment on above: Performed By: #### T 4F, BMP #### [address] Urea nitrogen [Mass/volume] in Serum or PlasmaOrdered By: Turner Frank on 04-05-2023 Urea nitrogen [Mass/Vol] 8 mg/dL Normal 7-[address] [facility] Comment on above: Performed By: #### T 4F, BMP #### [address] Basic Metabolic Panelon 03-23 Anion gap [Moles/Vol] 10.8 mmol/L Normal 6.0-15.0 [facility] Comment on above: Performed By: #### T 4F, BMP #### [address] Calcium [Mass/Vol] 9.0 mg/dL Normal 8.6-10.3 [facility] Comment on above: Performed By: #### T 4F, BMP #### [address] Chloride [Moles/Vol] 92 mmol/L Low 98-107 [facility] Comment on above: Performed By: #### T 4F, BMP #### [address] CO2 [Moles/Vol] 26.3 mmol/L Normal 21.0-31.0 [facility] Comment on above: Performed By: #### T 4F, BMP #### [place] [address] [place] Creatinine [Mass/Vol] 0.61 mg/dL Normal 0.60-1.20 [facility] Comment on above: Performed By: #### T 4F, BMP #### [place] [address] [place] Creatinine Clr Calc Pharmacy 42.78 Normal [facility] Comment on above: Result Comment: PERF ORMED BY: [place] [address] PATHOLOGIST CHAIN MENDER GOSIA MCADAMS M.D. Performed By: #### T 4F, BMP #### [place] [address] [place] GFR/1.73 sq M.predicted MDRD (S/P/Bld) [Vol rate/Area] mL/min/{1.73_m2} Normal [facility] Comment on above: Performed By: #### T 4F, BMP #### [address] Glucose [Mass/Vol] 177 mg/dL High 70-100 [facility] Comment on above: Result Comment: [place] Glucose Reference Range is dependent on time and content of last meal. Glucose of more than 200 mg/dL in a nonstressed, ambulatory subject supports the diagnosis of Diabetes Mellitus. ADA recommended reference range Performed By: #### T 4F, BMP #### [place] [address] [place] Potassium [Moles/Vol] 3.1 mmol/L Low 3.5-5.1 [facility] Comment on above: Performed By: #### T 4F, BMP #### [place] [address] [place] Sodium [Moles/Vol] 126 mmol/L Low 136-145 [facility] Comment on above: Performed By: #### T 4F, BMP #### [place] [address] [place] Urea nitrogen [Mass/Vol] 7 mg/dL Normal 7-25 [facility] Comment on above: Performed By: #### T 4F, BMP #### [facility] [address] Anion gap [Moles/Vol] 10.3 mmol/L Normal 6.0-15.0 [facility] Comment on above: Performed By: #### T 4F, BMP #### [address] Calcium [Mass/Vol] 8.6 mg/dL Normal 8.6-10.3 [facility] Comment on above: Performed By: #### T 4F, BMP #### [address] Chloride [Moles/Vol] 93 mmol/L Low 98-107 [facility] Comment on above: Performed By: #### T 4F, BMP #### [address] CO2 [Moles/Vol] 27.2 mmol/L Normal 21.0-31.0 [facility] Comment on above: Performed By: #### T 4F, BMP #### [address] Creatinine [Mass/Vol] 0.59 mg/dL Low 0.60-1.20 [facility] Comment on above: Performed By: #### T 4F, BMP #### [address] Creatinine Clr Calc Pharmacy 42.39 Normal [facility] Comment on above: Performed By: #### T 4F, BMP #### [place] [address] [place] GFR/1.73 sq M.predicted MDRD (S/P/Bld) [Vol rate/Area] mL/min/{1.73_m2} Normal [facility] Comment on above: Performed By: #### T 4F, BMP #### [address] Glucose [Mass/Vol] 107 mg/dL High 70-100 [facility] Comment on above: Result Comment: [place] Glucose Reference Range is dependent on time and content of last meal. Glucose of more than 200 mg/dL in a nonstressed, ambulatory subject supports the diagnosis of Diabetes Mellitus. ADA recommended reference range Performed By: #### T 4F, BMP #### [address] Potassium [Moles/Vol] 3.5 mmol/L Normal 3.5-5.1 [facility] Comment on above: Performed By: #### T 4F, BMP #### [address] Sodium [Moles/Vol] 127 mmol/L Low 136-145 [facility] Comment on above: Performed By: #### T 4F, BMP #### [address] Urea nitrogen [Mass/Vol] 7 mg/dL Normal 7-25 [facility] Comment on above: Performed By: #### T 4F, BMP #### [address] Thyroxine (T4) free [Mass/vo lume] in Serum or PlasmaOrdered By: Turner Frank on 04-04-2023 Free T4 [Mass/Vol] 1.41 ng/dL High 0.61-1.12 [facility] Comment on above: Result Comment: PERF ORMED BY: [place] [address] PATHOLOGIST CHAIN MENDER GOSIA MCADAMS M.D. Performed By: #### T 4F, BMP #### [place] [address] [place] Alanine aminotransferase [En zymatic activity/volume] in Serum or PlasmaOrdered By: Natividad Gregory on 04-03-2023 ALT [Catalytic activity/Vol] 14 U/L Normal 7-[address] [facility] Comment on above: Performed By: #### C BC, CMP #### [place] [address] [place] Albumin [Mass/volume] in Ser um or Plasma by Bromocresol green (BCG) dye binding methoOrdered By: Natividad Gregory on 04-03-2023 Albumin BCG dye [Mass/Vol] 3.7 g/dL 3.5-5.[address] [facility] Alkaline phosphatase [Enzyma tic activity/volume] in Serum or PlasmaOrdered By: Natividad Gregory on 04-03-2023 ALP [Catalytic activity/Vol] 56 U/L Normal 34-[address] [facility] Comment on above: Performed By: #### C BC, CMP #### [address] Aspartate aminotransferase [ Enzymatic activity/volume] in Serum or PlasmaOrdered By: Natividad Gricele on 04-03-2023 AST [Catalytic activity/Vol] 20 U/L Normal 13-[address] [facility] Comment on above: Performed By: #### C BC, CMP #### [address] Automated basophil %Ordered By: Natividad Gregory on 04-03-2023 Basophils/100 WBC (Bld) 0.6 % Normal . [facility] Comment on above: Performed By: #### C BC, CMP #### [address] Automated basophil countOrde red By: Natividad Gregory on 04-03-2023 Basophils (Bld) [#/Vol] 0.1 10*3/uL Normal 0.0-0.[address] [facility] Comment on above: Result Comment: PERF ORMED BY: [place] [address] PATHOLOGIST CHAIN MENDER GOSIA MCADAMS M.D. Performed By: #### C BC, CMP #### [address] Automated blood monocyte cou ntOrdered By: Natividad Gregory on 04-03-2023 Monocytes (Bld) [#/Vol] 1.1 10*3/uL High 0.0-0.[address] [facility] Comment on above: Performed By: #### C BC, CMP #### [address] Automated eosinophil %Ordere d By: Natividad Gregory on 04-03-2023 Eosinophils/100 WBC (Bld) 0.8 % Normal . [facility] Comment on above: Performed By: #### C BC, CMP #### [address] Automated eosinophil countOr dered By: Natividad Gregory on 04-03-2023 Eosinophils (Bld) [#/Vol] 0.1 10*3/uL Normal 0.0-0.[address] [facility] Comment on above: Performed By: #### C BC, CMP #### [address] Automated monocyte %Ordered By: Natividad Gregory on 04-03-2023 Monocytes/100 WBC (Bld) 10.3 % Normal . [facility] Comment on above: Performed By: #### C BC, CMP #### [address] Automated neutrophil %Ordere d By: Natividad Gregory on 04-03-2023 Neutrophils/100 WBC (Bld) 72.7 % Normal . [facility] Comment on above: Performed By: #### C BC, CMP #### [address] Basic Metabolic Panelon 03-23 Anion gap [Moles/Vol] 13.3 mmol/L Normal 6.0-15.0 [facility] Comment on above: Performed By: #### T 4F, BMP #### [address] Calcium [Mass/Vol] 8.9 mg/dL Normal 8.6-10.3 [facility] Comment on above: Performed By: #### T 4F, BMP #### [address] Chloride [Moles/Vol] 86 mmol/L Low 98-107 [facility] Comment on above: Performed By: #### T 4F, BMP #### [address] CO2 [Moles/Vol] 26.0 mmol/L Normal 21.0-31.0 [facility] Comment on above: Performed By: #### T 4F, BMP #### [address] Creatinine [Mass/Vol] 0.65 mg/dL Normal 0.60-1.20 [facility] Comment on above: Performed By: #### T 4F, BMP #### [place] [address] [place] Creatinine Clr Calc Pharmacy 42.39 Normal [facility] Comment on above: Result Comment: PERF ORMED BY: [place] [address] PATHOLOGIST CHAIN MENDER GOSIA MCADAMS M.D. Performed By: #### T 4F, BMP #### [place] [address] [place] GFR/1.73 sq M.predicted MDRD (S/P/Bld) [Vol rate/Area] mL/min/{1.73_m2} Normal [facility] Comment on above: Performed By: #### T 4F, BMP #### [address] Glucose [Mass/Vol] 170 mg/dL High 70-100 [facility] [facility]ician Group Comment on above: Result Comment: [facility] Glucose Reference Range is dependent on time and content of last meal. Glucose of more than 200 mg/dL in a nonstressed, ambulatory subject supports the diagnosis of Diabetes Mellitus. ADA recommended reference range Performed By: #### T 4F, BMP #### [address] Potassium [Moles/Vol] 3.3 mmol/L Low 3.5-5.1 [facility] Comment on above: Performed By: #### T 4F, BMP #### [address] Sodium [Moles/Vol] 122 mmol/L Off scale low 136-145 [facility] Comment on above: Result Comment: Crit ical Result Called to and read back by: NOT FIRST at: 04/03/2023 19:17:43 by:[id number] Performed By: #### T 4F, BMP #### [facility] [address] Urea nitrogen [Mass/Vol] 7 mg/dL Normal 7-25 [facility] Comment on above: Performed By: #### T 4F, BMP #### [facility] [address] Anion gap [Moles/Vol] 14.6 mmol/L Normal 6.0-15.0 [facility] Comment on above: Performed By: #### T 4F, BMP #### [facility] [address] Calcium [Mass/Vol] 8.8 mg/dL Normal 8.6-10.3 The [facility] Comment on above: Performed By: #### T 4F, BMP #### [place] [address] [place] Chloride [Moles/Vol] 81 mmol/L Low 98-107 [facility] Comment on above: Performed By: #### T 4F, BMP #### [place] [address] [place] CO2 [Moles/Vol] 26.8 mmol/L Normal 21.0-31.0 [facility] Comment on above: Performed By: #### T 4F, BMP #### [address] Creatinine [Mass/Vol] 0.61 mg/dL Normal 0.60-1.20 [facility] Comment on above: Performed By: #### T 4F, BMP #### [facility] [address] [place] [address] [place] Creatinine Clr Calc Pharmacy 42.39 Normal [facility] Comment on above: Result Comment: PERF ORMED BY: [place] [address] PATHOLOGIST CHAIN MENDER GOSIA MCADAMS M.D. Performed By: #### T 4F, BMP #### [place] [address] [place] GFR/1.73 sq M.predicted MDRD (S/P/Bld) [Vol rate/Area] mL/min/{1.73_m2} Normal [facility] Comment on above: Performed By: #### T 4F, BMP #### [facility] [address] Glucose [Mass/Vol] 108 mg/dL High 70-100 The [facility] Comment on above: Result Comment: [facility] Glucose Reference Range is dependent on time and content of last meal. Glucose of more than 200 mg/dL in a nonstressed, ambulatory subject supports the diagnosis of Diabetes Mellitus. ADA recommended reference range Performed By: #### T 4F, BMP #### [address] Potassium [Moles/Vol] 3.4 mmol/L Low 3.5-5.1 [facility] Comment on above: Performed By: #### T 4F, BMP #### [place] [address] [place] Sodium [Moles/Vol] 119 mmol/L Off scale low 136-145 [facility] Comment on above: Result Comment: Crit ical Result Called to and read back by: NOT FIRST TIME CRITICAL at: 04/03/2023 14:56:28 by:[email or web address] Performed By: #### T 4F, BMP #### [place] [address] [place] Urea nitrogen [Mass/Vol] 7 mg/dL Normal 7-25 [facility] Comment on above: Performed By: #### T 4F, BMP #### [place] [id number] [place] Anion gap [Moles/Vol] 16.6 mmol/L High 6.0-15.0 [facility] Comment on above: Performed By: #### T 4F, BMP #### [place] [address] [place] Calcium [Mass/Vol] 9.0 mg/dL Normal 8.6-10.3 The [facility] Comment on above: Performed By: #### T 4F, BMP #### [address] Chloride [Moles/Vol] 81 mmol/L Low 98-107 [facility] Comment on above: Performed By: #### T 4F, BMP #### [address] CO2 [Moles/Vol] 25.7 mmol/L Normal 21.0-31.0 [facility] Comment on above: Performed By: #### T 4F, BMP #### [address] Creatinine [Mass/Vol] 0.63 mg/dL Normal 0.60-1.20 [facility] Comment on above: Performed By: #### T 4F, BMP #### [address] Creatinine Clr Calc Pharmacy 42.39 Normal [facility] Comment on above: Result Comment: PERF ORMED BY: [place] [address] PATHOLOGIST CHAIN MENDER GOSIA MCADAMS M.D. Performed By: #### T 4F, BMP #### [address] GFR/1.73 sq M.predicted MDRD (S/P/Bld) [Vol rate/Area] mL/min/{1.73_m2} Normal [facility] Comment on above: Performed By: #### T 4F, BMP #### [address] Glucose [Mass/Vol] 123 mg/dL High 70-100 The [facility] Comment on above: Result Comment: [facility] Glucose Reference Range is dependent on time and content of last meal. Glucose of more than 200 mg/dL in a nonstressed, ambulatory subject supports the diagnosis of Diabetes Mellitus. ADA recommended reference range Performed By: #### T 4F, BMP #### [address] Potassium [Moles/Vol] 3.3 mmol/L Low 3.5-5.1 [facility] Comment on above: Performed By: #### T 4F, BMP #### [address] Sodium [Moles/Vol] 120 mmol/L Off scale low 136-145 [facility] Comment on above: Result Comment: Crit ical Result Called to and read back by: NOT FIRST TIME CRITICAL at: 04/03/2023 13:00:21 by:[email or web address] Performed By: #### T 4F, BMP #### [address] Urea nitrogen [Mass/Vol] 7 mg/dL Normal 7-25 [facility] Comment on above: Performed By: #### T 4F, BMP #### [address] Anion gap [Moles/Vol] 10.9 mmol/L Normal 6.0-15.0 Th e [facility] Comment on above: Performed By: #### T 4F, BMP #### [address] Calcium [Mass/Vol] 8.6 mg/dL Normal 8.6-10.3 The [facility] Comment on above: Performed By: #### T 4F, BMP #### [address] Chloride [Moles/Vol] 82 mmol/L Low 98-107 [facility] Comment on above: Performed By: #### T 4F, BMP #### [place] [address] [place] CO2 [Moles/Vol] 28.3 mmol/L Normal 21.0-31.0 [facility] Comment on above: Performed By: #### T 4F, BMP #### [place] [address] [place] Creatinine [Mass/Vol] 0.60 mg/dL Normal 0.60-1.20 [facility] Comment on above: Performed By: #### T 4F, BMP #### [place] [address] [place] Glucose [Mass/Vol] 121 mg/dL High 70-100 The [facility] Comment on above: Result Comment: [facility] Glucose Reference Range is dependent on time and content of last meal. Glucose of more than 200 mg/dL in a nonstressed, ambulatory subject supports the diagnosis of Diabetes Mellitus. ADA recommended reference range Performed By: #### T 4F, BMP #### [address] Potassium [Moles/Vol] 3.2 mmol/L Low 3.5-5.1 [facility] Comment on above: Performed By: #### T 4F, BMP #### [address] Sodium [Moles/Vol] 118 mmol/L Off scale low 136-145 [facility] Comment on above: Result Comment: Crit ical Result Called to and read back by: NOT FIRST TIME at: 04/03/2023 08:56:25 by:[id number] Performed By: #### T 4F, BMP #### [address] Urea nitrogen [Mass/Vol] 5 mg/dL Low 7-25 [facility] Comment on above: Performed By: #### T 4F, BMP #### [address] Anion gap [Moles/Vol] 14.1 mmol/L Normal 6.0-15.0 [facility] e [facility] Comment on above: Performed By: #### T 4F, BMP #### [place] [address] [place] Calcium [Mass/Vol] 8.3 mg/dL Low 8.6-10.3 The [facility] Comment on above: Performed By: #### T 4F, BMP #### [place] [address] [place] Chloride [Moles/Vol] 82 mmol/L Low 98-107 [facility] Comment on above: Performed By: #### T 4F, BMP #### [place] [address] [place] CO2 [Moles/Vol] 25.8 mmol/L Normal 21.0-31.0 [facility] Comment on above: Performed By: #### T 4F, BMP #### [address] Creatinine [Mass/Vol] 0.59 mg/dL Low 0.60-1.20 [facility] Comment on above: Performed By: #### T 4F, BMP #### [place] [address] [place] Creatinine Clr Calc Pharmacy 42.94 Normal [facility] Comment on above: Result Comment: PERF ORMED BY: [place] [address] PATHOLOGIST CHAIN MENDER GOSIA MCADAMS M.D. Performed By: #### T 4F, BMP #### [place] [address] [place] GFR/1.73 sq M.predicted MDRD (S/P/Bld) [Vol rate/Area] mL/min/{1.73_m2} Normal [facility] Comment on above: Performed By: #### T 4F, BMP #### [address] Glucose [Mass/Vol] 102 mg/dL High 70-100 The [facility] Comment on above: Result Comment: [facility] Glucose Reference Range is dependent on time and content of last meal. Glucose of more than 200 mg/dL in a nonstressed, ambulatory subject supports the diagnosis of Diabetes Mellitus. ADA recommended reference range Performed By: #### T 4F, BMP #### [address] Potassium [Moles/Vol] 2.9 mmol/L Off scale low 3.5-5.1 [facility] Comment on above: Result Comment: Crit ical Result Called to and read back by: TADEO BEAUCHAMP at: 04/03/2023 03:37:07 by:[id number] Performed By: #### T 4F, BMP #### [place] [address] [place] Sodium [Moles/Vol] 119 mmol/L Off scale low 136-145 [facility] Comment on above: Result Comment: Crit ical Result Called to and read back by: TADEO BEAUCHAMP at: 04/03/2023 03:37:07 by:[id number] Performed By: #### T 4F, BMP #### [address] Urea nitrogen [Mass/Vol] 6 mg/dL Low 7-25 [facility] Comment on above: Performed By: #### T 4F, BMP #### [address] Bilirubin.total [Mass/volume ] in Serum or PlasmaOrdered By: Natividad Gregory on 04-03-2023 Bilirubin [Mass/Vol] 0.7 mg/dL Normal 0.3-1.0 [facility] Comment on above: Performed By: #### C BC, CMP #### [address] Complete Blood Count Auto Di ffon 04-03-2023 Mean Corpuscular HGB Conc 35.8 g/dL High 32.0-35.0 [facility] Comment on above: Performed By: #### C BC, CMP #### [address] NRBC% 0.3 /100{WBC} Normal 0-0.5 [facility] Comment on above: Performed By: #### C BC, CMP #### [address] Comprehensive Metabolic Pane carlos 04-03-2023 Albumin [Mass/Vol] 3.7 g/dL Normal 3.5-5.7 [facility] Comment on above: Performed By: #### C BC, CMP #### [address] Anion gap [Moles/Vol] 12.9 mmol/L Normal 6.0-15.0 [facility] Comment on above: Performed By: #### C BC, CMP #### [address] Calcium [Mass/Vol] 8.5 mg/dL Low 8.6-10.3 The [facility] Comment on above: Performed By: #### C BC, CMP #### [address] Chloride [Moles/Vol] 81 mmol/L Low 98-107 [facility] Comment on above: Performed By: #### C BC, CMP #### [address] CO2 [Moles/Vol] 26.1 mmol/L Normal 21.0-31.0 [facility] Comment on above: Performed By: #### C BC, CMP #### [address] Creatinine [Mass/Vol] 0.58 mg/dL Low 0.60-1.20 [facility] Comment on above: Performed By: #### C BC, CMP #### [place] [address] [place] Creatinine Clr Calc Pharmacy 42.94 Normal [facility] Comment on above: Result Comment: PERF ORMED BY: [place] [address] PATHOLOGIST CHAIN MENDER GOSIA MCADAMS M.D. Performed By: #### C BC, CMP #### [place] [address] [place] GFR/1.73 sq M.predicted MDRD (S/P/Bld) [Vol rate/Area] mL/min/{1.73_m2} Normal [facility] Comment on above: Performed By: #### C BC, CMP #### [address] Glucose [Mass/Vol] 136 mg/dL High 70-100 The [facility] Comment on above: Result Comment: [facility] Glucose Reference Range is dependent on time and content of last meal. Glucose of more than 200 mg/dL in a nonstressed, ambulatory subject supports the diagnosis of Diabetes Mellitus. ADA recommended reference range Performed By: #### C BC, CMP #### [address] Potassium [Moles/Vol] 3.0 mmol/L Low 3.5-5.1 [facility] Comment on above: Performed By: #### C BC, CMP #### [address] Sodium [Moles/Vol] 117 mmol/L Off scale low 136-145 [facility] Comment on above: Result Comment: Crit ical Result Called to and read back by: EDMAR PATEL at: 04/03/2023 06:09:08 by:[id number] Performed By: #### C BC, CMP #### [address] Urea nitrogen [Mass/Vol] 6 mg/dL Low 7-25 [facility] Comment on above: Performed By: #### C BC, CMP #### [address] Erythrocyte distribution wid th [Ratio] by Automated countOrdered By: Natividad Gregory on 04-03-2023 Erythrocyte distribution width (RBC) [Ratio] 13.9 % Normal 11.9-15.[address] [facility] Comment on above: Performed By: #### C BC, CMP #### [address] Erythrocytes [#/volume] in B lood by Automated countOrdered By: Natividad Gregory on 04-03-2023 RBC (Bld) [#/Vol] 4.02 10*6/uL Normal 3.60-5.00 [facility] Comment on above: Performed By: #### C BC, CMP #### [address] Hematocrit [Volume Fraction] of Blood by Automated countOrdered By: Natividad Gregory on 04-03-2023 Hematocrit (Bld) [Volume fraction] 35.5 % Normal 34.0-46.[address] [facility] Comment on above: Performed By: #### C BC, CMP #### [address] Hemoglobin [Mass/volume] in BloodOrdered By: Natividad Gregory on 04-03-2023 Hemoglobin (Bld) [Mass/Vol] 12.7 g/dL Normal 11.8-15.[address] [facility] Comment on above: Performed By: #### C BC, CMP #### [address] Leukocytes [#/volume] correc sofiya for nucleated erythrocytes in Blood by Automated counOrdered By: Natividad Gregory on 04-03-2023 WBC corrected for nucl RBC Auto (Bld) [#/Vol] 10.6 10*3/uL 3.8-11.[address] [facility] Leukocytes [#/volume] in Blo od by Automated countOrdered By: Natividad Gregory on 04-03-2023 WBC (Bld) [#/Vol] 10.6 10*3/uL Normal 3.8-11.6 [facility] Comment on above: Performed By: #### C BC, CMP #### [place] [address] [place] Lymphocytes [#/volume] in Bl ood by Automated countOrdered By: Natividad Gregory on 04-03-2023 Lymphocytes (Bld) [#/Vol] 1.7 10*3/uL Normal 1.00-4.[address] [facility] Comment on above: Performed By: #### C BC, CMP #### [place] [address] [place] Lymphocytes/100 leukocytes i n Blood by Automated countOrdered By: Natividad Gregory on 04-03-2023 Lymphocytes/100 WBC (Bld) 15.6 % Normal . [facility] Comment on above: Performed By: #### C BC, CMP #### [place] [address] [place] MCH [Entitic mass] by Automa sofiya countOrdered By: Natividad Gregory on 04-03-2023 MCH (RBC) [Entitic mass] 31.6 pg Normal 24.7-34.[address] [facility] Comment on above: Performed By: #### C BC, CMP #### [address] MCHC Auto (RBC) [Mass/Vol]Or dered By: Natividad Gregory on 04-03-2023 MCHC (RBC) [Mass/Vol] 35.8 g/dL 32.0-35.0 [facility] MCV [Entitic volume] by Auto mated countOrdered By: Natividad Gregory on 04-03-2023 MCV (RBC) [Entitic vol] 88.3 fL Normal 80-100 [facility] Comment on above: Performed By: #### C BC, CMP #### [address] Neutrophils [#/volume] in Bl ood by Automated countOrdered By: Natividad Gregory on 04-03-2023 Neutrophils (Bld) [#/Vol] 7.7 10*3/uL Normal 1.8-7.[address] [facility] Comment on above: Performed By: #### C BC, CMP #### [address] Nucleated erythrocytes [Pres ence] in Blood by Automated countOrdered By: Natividad Gregory on 04-03-2023 Nucleated RBC Auto Ql (Bld) 0.3 /100{WBC} 0-0.[address] [facility] Platelet mean volume [Entiti c volume] in Blood by Automated countOrdered By: Natividad Gregory on 04-03-2023 Platelet mean volume (Bld) [Entitic vol] 7.0 fL Normal 6.3-10.[address] [facility] Comment on above: Performed By: #### C BC, CMP #### [place] [address] [place] Platelets [#/volume] in Bloo d by Automated countOrdered By: Natividad Gregory on 04-03-2023 Platelets (Bld) [#/Vol] 424 10*3/uL Normal 150-[address] [facility] Comment on above: Performed By: #### C BC, CMP #### [address] Protein [Mass/volume] in Ser um or PlasmaOrdered By: Natividad Gregory on 04-03-2023 Protein [Mass/Vol] 6.1 g/dL Low 6.4-8.9 [facility] Comment on above: Performed By: #### C BC, CMP #### [address] Serum globulin measurement b y calculation (mass/volume)Ordered By: Natividad Gregory on 04-03-2023 Globulin (S) [Mass/Vol] 2.4 g/dL Normal [facility] Comment on above: Performed By: #### C BC, CMP #### [address] Serum or plasma albumin/glob ulin mass ratioOrdered By: Natividad Gregory on 04-03-2023 Albumin/Globulin [Mass ratio] 1.5 {ratio} Normal [facility] Comment on above: Performed By: #### C BC, CMP #### [address] Sodiumon 04-03-2023 Sodium [Moles/Vol] 124 mmol/L Off scale low 136-145 [facility] Comment on above: Result Comment: Crit ical Result Called to and read back by: SAMMIE GOULD at: 04/03/2023 22:42:55 by:[email or web address] PERFORMED BY: [place] [address] PATHOLOGIST CHAIN MENDER GOSIA MCADAMS M.D. Performed By: #### N A #### [address] Basic Metabolic Panelon 03-23 Anion gap [Moles/Vol] 12.8 mmol/L Normal 6.0-15.0 [facility] Comment on above: Performed By: #### T SH3, MG, BMP #### [address] Calcium [Mass/Vol] 8.8 mg/dL Normal 8.6-10.3 [facility] Comment on above: Performed By: #### T SH3, MG, BMP #### [facility] [address] [place] [address] [place] Chloride [Moles/Vol] 81 mmol/L Low 98-107 [facility] Comment on above: Performed By: #### T SH3, MG, BMP #### [facility] [address] CO2 [Moles/Vol] 26.3 mmol/L Normal 21.0-31.0 [facility] Comment on above: Performed By: #### T SH3, MG, BMP #### [address] Creatinine [Mass/Vol] 0.59 mg/dL Low 0.60-1.20 [facility] Comment on above: Performed By: #### T SH3, MG, BMP #### [place] [address] [place] Creatinine Clr Calc Pharmacy 42.94 Normal [facility] Comment on above: Performed By: #### T SH3, MG, BMP #### [place] [address] [place] GFR/1.73 sq M.predicted MDRD (S/P/Bld) [Vol rate/Area] mL/min/{1.73_m2} Normal [facility] Comment on above: Performed By: #### T SH3, MG, BMP #### [place] [address] [place] Glucose [Mass/Vol] 122 mg/dL High 70-100 [facility] Comment on above: Result Comment: [facility] Glucose Reference Range is dependent on time and content of last meal. Glucose of more than 200 mg/dL in a nonstressed, ambulatory subject supports the diagnosis of Diabetes Mellitus. ADA recommended reference range Performed By: #### T SH3, MG, BMP #### [address] Potassium [Moles/Vol] 3.1 mmol/L Low 3.5-5.1 [facility] Comment on above: Performed By: #### T SH3, MG, BMP #### [facility] [address] [place] [address] Sodium [Moles/Vol] 117 mmol/L Off scale low 136-145 [facility] Comment on above: Result Comment: Crit ical Result Called to and read back by: GERMAIN BEAUCHAMP at: 04/02/2023 21:52:44 by:[id number] Performed By: #### T SH3, MG, BMP #### [facility] [address] [place] [address] Urea nitrogen [Mass/Vol] 7 mg/dL Normal 7-25 [facility] Comment on above: Performed By: #### T SH3, MG, BMP #### [address] Magnesium [Mass/volume] in S willa or PlasmaOrdered By: Natividad Gregory on 04-02-2023 Magnesium [Mass/Vol] 1.9 mg/dL Normal 1.9-2.7 [facility] Comment on above: Performed By: #### T SH3, MG, BMP #### [facility] [address] [place] [address] No Panel InformationOrdered By: Natividad Gregory on 04-02-2023 Urine Osmolality 298 mosm 250-900 [facility] Osm[facility]ality, Urineon 04-02-19 24 Osmolality, Urine 298 mosm Normal 250-900 [facility] Comment on above: Result Comment: PERF ORMED BY: [place] [address] PATHOLOGIST CHAIN MENDER GOSIA MCADAMS M.D. Performed By: #### U ROSMO, KERRY #### [facility] [address] [place] [address] [place] Sodium [Moles/volume] in Uri neOrdered By: Natividad Gregory on 04-02-2023 Sodium (U) [Moles/Vol] 79 mmol/L Normal [facility] Comment on above: No reference range e stablished Result Comment: No r eference range established PERFORMED BY: [facility] [address] [place] [address] PATHOLOGIST CHAIN MENDER GOSIA MCADAMS M.D. Performed By: #### U ROSMO, KERRY #### [facility] [address] [place] [id number] [facility] Thyrotropin [Units/volume] i n Serum or PlasmaOrdered By: Natividad Gregory on 04-02-2023 TSH Qn 5.76 m[IU]/L High 0.45-5.[address] [facility] Comment on above: Result Comment: PERF ORMED BY: [place] [address] PATHOLOGIST CHAIN MENDER GOSIA MCADAMS M.D. Performed By: #### T 4F, BMP #### [facility] [address] [place] [address] Office Visiton 01-11-2023 Follow-up visit [id number] Hiram Madrid 1935 F Date Provider Department Center 01/11/2023 LESLY GASPAR CARD [facility] Family History Problem Relation Age of Onset Hypertension Mother Lupus Mother Coronary artery disease Mother Heart attack Mother Hypertension Father Aneurysm Father Coronary artery disease Father Hypertension Sister Lupus Sister Family Status - Relation Status Age at Mother Father Sister Level of Service:[address]48 [place] OFFICE/OUTPATIENT ESTABLISHED MOD MDM 30-39 MIN Normal [facility] Lab Reportson 12-23-2022 Lab Reports [id number] Normal [facility] Urology Office/Clinic Noteon 12-23-2022 Urology Office/Clinic [...] No rashes or suspicious lesions Assessment/Plan Dr. Brown pt 1. Hydronephrosis, right (N13.30: Unspecified hydronephrosis) Pt presented to ER due to syncope. Adolphus was found incidentally on CT. CT AP [...] - BUN 11. Cr 0.58. GFR >60. 10/27/23 - BUN 15. Cr 0.83. GFR >60 [...] Contact Information ABHISHEK NOONAN, MIKAYLA Pereira, URL [address] [place] [address] [phone] Additional Instructions: 6 mos w/ renal fxn [...] No qualifying data Procedure/Surgical History Appendectomy, Bilateral salpingo-oophorectom y, Cataract extraction and insertion of intraocular lens, Cholecystectomy, Colonoscopy, Procedure on back, Tonsillectomy. Medications amLODIPine 10 mg Tab aspirin 81 mg oral capsule, Oral, q4hr, Not taking carvedilol, Oral Cipro 250 mg Tab, 250 mg= 1 tab(s), Oral, Daily, Not taking hydrochlorothiazide, Oral, Daily levothyroxine 88 mcg (0.088 mg) Tab losartan 100 mg Tab Potassium Chloride (Wru-Bqms-Aot 10), Oral, BID pravastatin 80 mg Tab [...] virus vaccine, (more content not included)... Normal [facility] Comment on above: Result Comment: Elec tronically Signed By: MIKAYLA WEISS PA-C\.br\Date and Time Signed: 12/23/22 12:13 EDT\.br\Electronically Co-Signed By: Jacquie Gan\.br\Date and Time Co-Signed: 12/22/22 12:27 EDT Ambulatory Visit Summaryon 1 02-21-2022 Ambulatory Visit Summary HIRAM MADRID :[id number] Visit Date:12/22/2022 Ambulatory Visit Instructions Your Diagnosis Hydronephrosis, right Ureteral stenosis Tests Performed Urnls Dip Stick Auto w/o Microscopy POC 07607 US Renal -- Results Pending -- Please [...] 100 mg Tab) potassium chloride (Potassium Chloride (Piz-Bnsv-Idg 10)) pravastatin (pravastatin 80 mg Tab) Procedures Performed Appendectomy, Bilateral salpingo-oophorectom y, Cataract extraction and insertion of intraocular lens, Cholecystectomy, Colonoscopy, Procedure on back, Tonsillectomy. Discharge Vitals Blood Pressure 124/84 Height 155 cm Height 61 in Weight 64.8 kg Weight 142.56 lb BMI 26.97 What to do next Scheduled Follow-Up Appointments June. 2023 9:30 AM EDT With: MIKAYLA WEISS PA-C [facility] Patient Educationon 12-23-19 Patient Education Urology [...] Follow these instructions at home: ? Take llnk-gnr-[id number] and prescription medicines only as told by [...] provider. Document Revised: 05/26/2020 Document Reviewed: 05/26/2020 [employer] Patient Education ? 2022 [employer] Normal [facility] RAD - Ultrasound Reporton RAD - Ultrasound Report [id number] Normal [facility] Orders Onlyon 10-25-2022 Orders Only [id number] Hiram Madrid 1935 F Date Provider Department Center 10/25/2022 LESLY GASPAR [facility]. Family History Problem Relation Age of Onset Hypertension Mother Lupus Mother Coronary artery disease Mother Heart attack Mother Hypertension Father Aneurysm Father Coronary artery disease Father Hypertension Sister Lupus Sister Family Status - Relation Status Age at Mother Father Sister Normal [facility] 37on 10-14-2022 38 Increase coreg/carvedilol to 25 mg twice a day- you have 12.5 mg tabs now so take 2 twice a day until this bottle is gone- your next refill will be the higher dose of 25 mg bid. Have labs drawn Normal [facility] Office Visiton 10-14-2022 Follow-up visit [id number] Greta Madridkanika Rojas 1935 F Date Provider Department Center 10/14/2022 LESLY GASPAR [facility] Family History Problem Relation Age of Onset Hypertension Mother Lupus Mother Coronary artery disease Mother Heart attack Mother Hypertension Father Aneurysm Father Coronary artery disease Father Hypertension Sister Lupus Sister Family Status - Relation Status Age at Mother Father Sister Level of Service:48087 [place] OFFICE/OUTPATIENT ESTABLISHED MOD MDM 30-39 MIN Normal [facility] Alanine aminotransferase [En zymatic activity/volume] in Serum or PlasmaOrdered By: Camacho Cooper on 08-05-2022 ALT [Catalytic activity/Vol] 16 U/L 7-[address] [facility] Albumin [Mass/volume] in Ser um or Plasma by Bromocresol green (BCG) dye binding methoOrdered By: Camacho Cooper on 08-05-2022 Albumin BCG dye [Mass/Vol] 4.4 g/dL 3.5-5.[address] [facility] Alkaline phosphatase [Enzyma tic activity/volume] in Serum or PlasmaOrdered By: Camacho Cooper on 08-05-2022 ALP [Catalytic activity/Vol] 61 U/L 34-[address] [facility] Aspartate aminotransferase [ Enzymatic activity/volume] in Serum or PlasmaOrdered By: Camacho Cooper on 08-05-2022 AST [Catalytic activity/Vol] 21 U/L 13-[address] [facility] Automated erythrocytes count in urine sediment (number/area)Ordered By: Camacho Cooper on 08-05-2022 RBC Auto (Urine sed) [#/Area] 0-1 [HPF] 0-[address] [facility] Automated leukocytes count i n urine sediment (number/area)Ordered By: Camacho Cooper on 08-05-2022 WBC Auto (Urine sed) [#/Area] 1-2 [HPF] 0-[address] [facility] Basophils Auto (Bld) [#/Vol] Ordered By: Camacho Cooper on 08-05-2022 Basophils (Bld) [#/Vol] 0.1 10*3/uL 0.0-0.[address] [facility] Basophils/100 WBC Auto (Bld) Ordered By: Camacho Cooper on 08-05-2022 Basophils/100 WBC (Bld) 0.4 % . [facility] Bilirubin Test strip Ql (U)O rdered By: Camacho Cooper on 08-05-2022 Bilirubin Ql (U) Negative Negative [facility] Bilirubin.direct [Mass/volum e] in Serum or PlasmaOrdered By: Camacho Cooper on 08-05-2022 Bilirubin.direct [Mass/Vol] 0.10 mg/dL 0.03-0.[address] [facility] Bilirubin.total [Mass/volume ] in Serum or PlasmaOrdered By: Camacho Cooper on 08-05-2022 Bilirubin [Mass/Vol] 0.7 mg/dL 0.3-1.0 [facility] Calcium [Mass/volume] in Ser um or PlasmaOrdered By: Camacho Cooper on 08-05-2022 Calcium [Mass/Vol] 9.7 mg/dL 8.6-10.3 [facility] Carbon dioxide, total [Moles /volume] in Serum or PlasmaOrdered By: Camacho Cooper on 08-05-2022 CO2 [Moles/Vol] 23.2 mmol/L 21.0-31.0 [facility] Chloride [Moles/volume] in S willa or PlasmaOrdered By: Camacho Cooper on 08-05-2022 Chloride [Moles/Vol] 87 mmol/L 98-107 [facility] Color Auto (U)Ordered By: Ender Cooper on 08-05-2022 Color (U) Yellow Yellow [facility] Creatinine [Mass/volume] in Serum or PlasmaOrdered By: Camacho Cooper on 08-05-2022 Creatinine [Mass/Vol] 1.03 mg/dL 0.60-1.20 [facility] Eosinophils Auto (Bld) [#/Vo l]Ordered By: Camacho Cooper on 08-05-2022 Eosinophils (Bld) [#/Vol] 0.1 10*3/uL 0.0-0.[address] [facility] Eosinophils/100 WBC Auto (Bl d)Ordered By: Camacho Cooper on 08-05-2022 Eosinophils/100 WBC (Bld) 0.6 % . [facility] Erythrocyte distribution wid th Auto (RBC) [Ratio]Ordered By: Camacho Cooper on 08-05-2022 Erythrocyte distribution width (RBC) [Ratio] 13.6 % 11.9-15.[address] [facility] Globulin Calc (S) [Mass/Vol] Ordered By: Camacho Cooper on 08-05-2022 Globulin (S) [Mass/Vol] 2.9 g/dL [facility] Glucose [Mass/volume] in Ser um or PlasmaOrdered By: Camacho Cooper on 08-05-2022 Glucose [Mass/Vol] 156 mg/dL 70-100 [facility] Comment on above: ADA recommended refe rence rangeRandom Glucose Reference Range is dependent on time and content of last meal. Glucose of more than 200 mg/dL in a nonstressed, ambulatory subject supports the diagnosis of Diabetes Mellitus. Hematocrit Auto (Bld) [Volum e fraction]Ordered By: Camacho Cooper on 08-05-2022 Hematocrit (Bld) [Volume fraction] 37.3 % 34.0-46.[address] [facility] Hemoglobin [Mass/volume] in BloodOrdered By: Camacho Cooper on 08-05-2022 Hemoglobin (Bld) [Mass/Vol] 13.0 g/dL 11.8-15.[address] [facility] Ketones Auto test strip (U) [Mass/Vol]Ordered By: Camacho Cooper on 08-05-2022 Ketones (U) [Mass/Vol] Negative Negative [facility] Laboratory - UrinalysisOrder ed By: Camacho Cooper on 08-05-2022 Hyaline casts LM Ql (Urine sed) None seen [LPF] 0-[address] [facility] Leukocytes [#/volume] correc sofiya for nucleated erythrocytes in Blood by Automated counOrdered By: Camacho Cooper on 08-05-2022 WBC corrected for nucl RBC Auto (Bld) [#/Vol] 14.2 10*3/uL 3.8-11.[address] [facility] Lipase [Enzymatic activity/v olume] in Serum or PlasmaOrdered By: Camacho Cooper on 08-05-2022 Lipase [Catalytic activity/Vol] 23.0 U/L 11.0-82.[address] [facility] Lymphocytes Auto (Bld) [#/Vo l]Ordered By: Camacho Cooper on 08-05-2022 Lymphocytes (Bld) [#/Vol] 3.1 10*3/uL 1.00-4.[address] [facility] Lymphocytes/100 WBC Auto (Bl d)Ordered By: Camacho Cooper on 08-05-2022 Lymphocytes/100 WBC (Bld) 21.9 % . [facility] MCH Auto (RBC) [Entitic mass ]Ordered By: Camacho Cooper on 08-05-2022 MCH (RBC) [Entitic mass] 31.6 pg 24.7-34.[address] [facility] MCHC Auto (RBC) [Mass/Vol]Or dered By: Camacho Cooper on 08-05-2022 MCHC (RBC) [Mass/Vol] 35.0 g/dL 32.0-35.0 [facility] MCV Auto (RBC) [Entitic vol] Ordered By: Camacho Cooper on 08-05-2022 MCV (RBC) [Entitic vol] 90.4 fL 80-100 [facility] Monocyte distribution width [Entitic volume] in Blood by AutomatedOrdered By: Camacho Cooper on 08-05-2022 Monocyte distribution width Auto (Bld) [Entitic vol] 20.58 % 0.00-20.[address] [facility] Comment on above: For adults in ED, MD W > 20.0 may be associated with a higher risk of sepsis during the first 12 hrs of hospital admission Monocytes Auto (Bld) [#/Vol] Ordered By: Camacho Cooper on 08-05-2022 Monocytes (Bld) [#/Vol] 1.4 10*3/uL 0.0-0.[address] [facility] Monocytes/100 WBC Auto (Bld) Ordered By: Camacho Cooper on 08-05-2022 Monocytes/100 WBC (Bld) 9.6 % . [facility] Neutrophils Auto (Bld) [#/Vo l]Ordered By: Camacho Cooper on 08-05-2022 Neutrophils (Bld) [#/Vol] 9.6 10*3/uL 1.8-7.[address] [facility] Neutrophils/100 WBC Auto (Bl d)Ordered By: Camacho Cooper on 08-05-2022 Neutrophils/100 WBC (Bld) 67.5 % . [facility] Nitrite Test strip Ql (U)Ord ered By: Camacho Cooper on 08-05-2022 Nitrite Ql (U) Negative Negative [facility] No Panel InformationOrdered By: Camacho Cooper on 08-05-2022 Estimated GFR (CKD-EPI) 53.284 mL/Min [facility] Creatinine Clearance (Chem 35.[address] [facility] Nucleated erythrocytes [Pres ence] in Blood by Automated countOrdered By: Camacho Cooper on 08-05-2022 Nucleated RBC Auto Ql (Bld) 0.1 /100{WBC} 0-0.[address] [facility] Platelet mean volume Auto (B ld) [Entitic vol]Ordered By: Camacho Cooper on 08-05-2022 Platelet mean volume (Bld) [Entitic vol] 7.2 fL 6.3-10.[address] [facility] Platelets Auto (Bld) [#/Vol] Ordered By: Camacho Cooper on 08-05-2022 Platelets (Bld) [#/Vol] 500 10*3/uL 150-[address] [facility] Potassium [Moles/volume] in Serum or PlasmaOrdered By: Camacho Cooper on 08-05-2022 Potassium [Moles/Vol] 3.0 mmol/L 3.5-5.1 [facility] Protein Auto test strip (U) [Mass/Vol]Ordered By: Camacho Cooper on 08-05-2022 Protein (U) [Mass/Vol] Negative Negative [facility] Protein [Mass/volume] in Ser um or PlasmaOrdered By: Camacho Cooper on 08-05-2022 Protein [Mass/Vol] 7.3 g/dL 6.4-8.9 [facility] RBC Auto (Bld) [#/Vol]Ordere d By: Camacho Cooper on 08-05-2022 RBC (Bld) [#/Vol] 4.13 10*6/uL 3.60-5.00 [facility] Serum or plasma albumin/glob ulin mass ratioOrdered By: Camacho Cooper on 08-05-2022 Albumin/Globulin [Mass ratio] 1.5 {ratio} [facility] Serum or plasma anion gap de terminationOrdered By: Camacho Cooper on 08-05-2022 Anion gap [Moles/Vol] 17.8 mmol/L 6.0-15.0 [facility] Serum or plasma non-glucuron idated bilirubin measurement (mass/volume)Ordered By: Camacho Cooper on 08-05-2022 Bilirubin.indirect [Mass/Vol] 0.6 mg/dL [facility] Sodium [Moles/volume] in Ser um or PlasmaOrdered By: Camacho Cooper on 08-05-2022 Sodium [Moles/Vol] 125 mmol/L 136-145 [facility] Specific gravity Auto test s trip (U) [Rel density]Ordered By: Camacho Cooper on 08-05-2022 Specific gravity (U) [Rel density] 1.009 1.001-1.[address] [facility] Squamous epithelial cells de tection in urine sediment by light microscopyOrdered By: Camacho Cooper on 08-05-2022 Epithelial cells.squamous LM Ql (Urine sed) 0-1 [HPF] 0-[address] [facility] Troponin I.cardiac [Mass/vol ume] in Serum or Plasma by Detection limit <= 0.01 ng/Ordered By: Camacho Cooper on 08-05-2022 Troponin I.cardiac DL <= 0.01 ng/mL [Mass/Vol] 7.7 pg/mL 0.0-15.[address] [facility] Urea nitrogen [Mass/volume] in Serum or PlasmaOrdered By: Camacho Cooper on 08-05-2022 Urea nitrogen [Mass/Vol] 12 mg/dL 7-[address] [facility] Urine bacteria detection by automated methodOrdered By: Camacho Cooper on 08-05-2022 Bacteria Auto Ql (U) None seen None Seen [facility] Urine clarity by refractomet ry automatedOrdered By: Camacho Cooper on 08-05-2022 Clarity Refractometry automated (U) Cloudy Clear [facility] Urine glucose measurement by automated test strip (mass/volume)Ordered By: Camacho Cooper on 08-05-2022 Glucose Auto test strip (U) [Mass/Vol] Normal mg/dL Normal [facility] Urine hemoglobin detection b y automated test stripOrdered By: Camacho Cooper on 08-05-2022 Hemoglobin Auto test strip Ql (U) Negative Negative [facility] Urine leukocyte esterase det ection by automated test stripOrdered By: Camacho Cooper on 08-05-2022 Leukocyte esterase Auto test strip Ql (U) 1+ Negative [facility] Urobilinogen Auto test strip (U) [Mass/Vol]Ordered By: Camacho Cooper on 08-05-2022 Urobilinogen (U) [Mass/Vol] Normal mg/dL Normal [facility] WBC Auto (Bld) [#/Vol]Ordere d By: Camacho Cooper on 08-05-2022 WBC (Bld) [#/Vol] 14.2 10*3/uL 3.8-11.6 [facility] pH Auto test strip (U)Ordere d By: aCmacho Cooper on 08-05-2022 pH (U) 7.0 [pH] 5.0-9.[address] [facility] BNPon 06-13-2022 Natriuretic peptide B (Bld) [Mass/Vol] 142.0 pg/mL Normal <=1,800.0 [facility] Comment on above: Performed By: #### T PAWAN DENNISON #### [facility] [address] [place] [id number] [address] Tasha Dodson CBC AUTO DIFFon 06-13-2022 BASO # 0.1 103/ul Normal 0.0-0.1 [facility] Comment on above: Performed By: #### T PAWAN DENNISON #### [facility] [address] [place] [address] Dr. Tasha Dodson Basophils/100 WBC (Bld) 1.0 % Normal 0.2-2.0 [facility] Comment on above: Performed By: #### T SH, BMP #### [facility] [address] [place] [address] Dr. Tasha Dodson EO # 0.3 103/ul Normal 0.0-0.7 [facility] Comment on above: Performed By: #### T SH, BMP #### [facility] [address] [place] [address] Dr. Tasha Dodson Eosinophils/100 WBC (Bld) 2.6 % Normal 0.9-7.0 [facility] Comment on above: Performed By: #### T SH, BMP #### [facility] [address] [place] [address] Dr. Tasha Dodson Erythrocyte distribution width (RBC) [Ratio] 13.4 % Normal 11.0-15.0 [facility] Comment on above: Performed By: #### T SH, BMP #### [facility] [address] [place] [address] Dr. Tasha Dodson Hematocrit (Bld) [Volume fraction] 39.5 % Normal 36.0-48.0 [facility] Comment on above: Performed By: #### T SH, BMP #### [facility] [address] [place] [address] Dr. Tasha Dodson Hemoglobin (Bld) [Mass/Vol] 13.1 g/dL Normal 12.0-16.0 [facility] Comment on above: Performed By: #### T SH, BMP #### [facility] [address] [place] [address] Dr. Tasha Dodson IG # 0.07 10e3/ul Critically high 0.00-0.03 [facility] Comment on above: Performed By: #### T SH, BMP #### [facility] [address] [place] [address] Dr. Tasha Dodson IG % 0.6 % Critically high 0.0-0.5 [facility] Comment on above: Performed By: #### T SH, BMP #### [facility] [address] [place] [address] Dr. Tasha Dodson LYMPH # 2.5 103/ul Normal 1.2-3.8 [facility] Comment on above: Performed By: #### T SH, BMP #### [facility] [address] [place] [address] Dr. Tasha Dodson Lymphocytes/100 WBC (Bld) 22.9 % Normal 20.5-60.0 [facility] Comment on above: Performed By: #### T SH, BMP #### [facility] [address] [place] [address] Dr. Tasha Dodson MANUAL DIFF REQ NO Normal [facility] Comment on above: Performed By: #### T SH, BMP #### [facility] [address] [place] [address] Dr. Tasha Dodson MCH (RBC) [Entitic mass] 30.7 pg Normal 26.7-34.0 [facility] Comment on above: Performed By: #### T SH, BMP #### [facility] [address] [place] [address] Dr. Tasha Dodson MCHC (RBC) [Mass/Vol] 33.2 g/dL Normal 29.9-35.2 [facility] Comment on above: Performed By: #### T SH, BMP #### [facility] [address] [place] [address] Dr. Tasha Dodson MCV (RBC) [Entitic vol] 92.5 fL Normal 81.0-99.0 [facility] Comment on above: Performed By: #### T SH, BMP #### [facility] [address] [place] [address] Dr. Tasha Dodson MONO # 0.8 103/ul Normal 0.3-0.8 [facility] Comment on above: Performed By: #### T SH, BMP #### [facility] [address] [place] [address] Dr. Tasha Dodson Monocytes/100 WBC (Bld) 7.0 % Normal 1.7-12.0 [facility] Comment on above: Performed By: #### T SH, BMP #### [facility] [address] [address] [address] Tasha Dodson NEUT # 7.2 103/ul Critically high 1.4-6.5 [facility] Comment on above: Performed By: #### T SH, BMP #### [facility] [address] [address] [address] Tasha Dodson Neutrophils/100 WBC (Bld) 65.9 % Normal 43.0-75.0 [facility] Comment on above: Performed By: #### T SH, BMP #### [facility] [address] [address] [address] Tasha Dodson Platelet mean volume (Bld) [Entitic vol] 8.0 fL Critically low 9.5-13.5 [facility] Comment on above: Performed By: #### T SH, BMP #### [facility] [address] [place] [address] Dr. Tasha Dodson PLT 449 103/ul Normal 150-450 [facility] Comment on above: Performed By: #### T SH, BMP #### [facility] [address] [place] [address] Dr. Tasha Dodson RBC 4.27 106/ul Normal 4.20-5.40 [facility] Comment on above: Performed By: #### T SH, BMP #### [facility] [address] [place] [address] Dr. Tasha Dodson WBC 10.9 103/ul Normal 4.0-11.0 [facility] Comment on above: Performed By: #### T SH, BMP #### [facility] [address] [place] [address] Dr. Tasha Dodson FREE THYROXINE INDEX T7on FTI 3.67 Normal 1.30-4.50 [facility] Comment on above: Performed By: #### T SH, BMP #### [facility] [address] [place] [address] Dr. Tasha Dodson T3U 36.0 % Normal 30.0-39.0 [facility] Comment on above: Performed By: #### T SH, BMP #### [facility] [address] [place] [address] Dr. Tasha Dodson T4 [Mass/Vol] 10.20 ug/dL Normal 4.80-13.90 [facility] Comment on above: Performed By: #### T SH, BMP #### [facility] [address] [place] [address] Dr. Tasha Dodson PROF CHEM 8 (BAS METB)on Anion gap [Moles/Vol] 13.8 mmol/L Normal [facility] Comment on above: Performed By: #### T SH, BMP #### [facility] [address] [place] [address] Dr. Tasha Dodson Calcium [Mass/Vol] 9.8 mg/dL Normal 8.5-10.1 [facility] Comment on above: Performed By: #### T SH, BMP #### [facility] [address] [place] [address] Dr. Tasha Dodson Chloride [Moles/Vol] 95 mmol/L Critically low 98-107 [facility] Comment on above: Performed By: #### T SH, BMP #### [facility] [address] [place] [address] Dr. Tasha Dodson CO2 [Moles/Vol] 30.5 mmol/L Normal 21.0-32.0 [facility] Comment on above: Performed By: #### T SH, BMP #### [facility] [address] [place] [address] Dr. Tasha Dodson Creatinine [Mass/Vol] 0.78 mg/dL Normal 0.55-1.02 [facility] Comment on above: Performed By: #### T SH, BMP #### [facility] [address] [place] [address] Dr. Tasha Dodson EGFR-AF CUBAN >60 Normal >=60 [facility] Comment on above: Performed By: #### T SH, BMP #### [facility] [address] [place] [address] Dr. Tasha Dodson EGFR-NON AF CUBAN >60 Normal >=60 [facility] Comment on above: Performed By: #### T SH, BMP #### [facility] [address] [place] [address] Dr. Tasha Dodson Glucose [Mass/Vol] 108 mg/dL Critically high 74-106 [facility] Comment on above: Performed By: #### T SH, BMP #### [facility] [address] [place] [address] Dr. Tasha Dodson Potassium [Moles/Vol] 3.3 mmol/L Critically low 3.5-5.1 [facility] Comment on above: Performed By: #### T SH, BMP #### [facility] [address] [place] [address] Dr. Tasha Dodson Sodium [Moles/Vol] 136 mmol/L Normal 136-145 [facility] Comment on above: Performed By: #### T JESI, BMP #### [facility] [address] [place] [address] Dr. Tasha Dodson Urea nitrogen [Mass/Vol] 11.0 mg/dL Normal 7.0-18.0 [facility] Comment on above: Performed By: #### T JESI, BMP #### [facility] [address] [place] [address] Dr. Tasha Dodson Urea nitrogen/Creatinine [Mass ratio] 14.1 mg/mg Normal [facility] Comment on above: Performed By: #### T JESI, BMP #### [facility] [address] [place] [address] Dr. Tasha Dodson TSHon 06-13-2022 TSH 2.583 uIU/mL Normal 0.358-3.740 [facility] Comment on above: Performed By: #### T JESI, BMP #### [facility] [address] [place] [address] Dr. Tasha Dodson UA (CLEAN/CATCH) URBAN REDEVELOPMENT SPECIALIST/MICRO I F IND.on 06-13-2022 Bilirubin Ql (U) Negative Normal NEGATIVE [facility] Comment on above: Performed By: #### T JESI, BMP #### [facility] [address] [place] [address] Dr. Tasha Dodson Clarity (U) CLEAR Normal CLEAR [facility] Comment on above: Performed By: #### T SH, BMP #### [facility] [address] [place] [address] Dr. Tasha Dodson Color (U) LT. YELLOW Normal YELLOW [facility] Comment on above: Performed By: #### T SH, BMP #### [facility] [address] [place] [address] Dr. Tasha Dodson Glucose Ql (U) Negative Normal NEGATIVE [facility] Comment on above: Performed By: #### T SH, BMP #### [facility] [address] [place] [address] Dr. Tasha Dodson Hemoglobin Ql (U) Negative Normal NEGATIVE [facility] Comment on above: Performed By: #### T SH, BMP #### [facility] [address] [place] [address] Dr. Tasha Dodson Ketones Ql (U) Negative Normal NEGATIVE [facility] Comment on above: Performed By: #### T SH, BMP #### [facility] [address] [place] [address] Dr. Tasha Dodson LEUKOCYTES Negative Normal NEGATIVE [facility] Comment on above: Performed By: #### T SH, BMP #### [facility] [address] [place] [address] Dr. Tasha Dodson Nitrite Ql (U) Negative Normal NEGATIVE [facility] Comment on above: Performed By: #### T SH, BMP #### [facility] [address] [place] [address] Dr. Tasha Dodson pH (U) 7.0 [pH] Normal 5-9 [facility] Comment on above: Performed By: #### T SH, BMP #### [facility] [address] [place] [address] Dr. Tasha Dodson SPEC GRAVITY 1.010 Normal 1.005-<=1.02 5 [facility] Comment on above: Performed By: #### T SH, BMP #### [facility] [address] [place] [address] Dr. Tasha Dodson UA PROTEIN Negative Normal NEGATIVE/ TRACE [facility] Comment on above: Performed By: #### T SH, BMP #### [facility] [address] [address] [address] Tasha Dodson UR MICRO IND NOT INDICATED Normal [facility] Comment on above: Performed By: #### T SH, BMP #### [facility] [address] [place], [place] [address] Dr. Tasha Dodson Urobilinogen Qn (U) 0.2 {Juan'U}/dL Normal 0.2 - 1. 0 [facility] Comment on above: Performed By: #### T JESI, BMP #### [facility] [address] [address] [address] Tasha Dodson ECHOCARDIO M/2D COMPLETEon 0 04-18-2022 ECHOCARDIO M/2D COMPLETE Patient: HIRAM MADRID Exam Date: 04/18/2022 : 1935 Gender:F Ordering : DR VALERIE DARDEN M.D. Admission #: [id number] Family : DR ADDY DANIELS . Order #: [id number] CLICK HERE TO VIEW EXAM ECHOCARDIOGRAM REPORT [...] Barragan M.D. on 04/19/2022 at 18:55 Normal [facility] Office Visiton 04-04-2022 Follow-up visit [id number] Hiram Madrid 1935 F Date Provider Department Center 04/04/2022 Yazmin-VALERIE DARDEN [facility] Family History Problem Relation Age of Onset Hypertension Mother Lupus Mother Coronary artery disease Mother Heart attack Mother Hypertension Father Aneurysm Father Coronary artery disease Father Hypertension Sister Lupus Sister Family Status - Relation Status Age at Mother Father Sister Level of Service:[address] [place] OFFICE/OUTPATIENT ESTABLISHED MOD MDM 30-39 MIN Reason for Visit and Comments: Hyperlipidemia [182] Hypertension [628465] carotid artery stenosis [Other] 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 CBC AUTO DIFFon 01-04-2022 BASO # 0.1 103/ul Normal 0.0-0.1 [facility] Comment on above: Performed By: #### C BC #### [facility] [address] [place] [address] Dr. Tasha Dodson Basophils/100 WBC (Bld) 0.6 % Normal 0.2-2.0 [facility] Comment on above: Performed By: #### C BC #### [facility] [address] [address] [address] Tasha Dodson EO # 0.1 103/ul Normal 0.0-0.7 [facility] Comment on above: Performed By: #### C BC #### [facility] [address] [place] [address] Dr. Tasha Dodson Eosinophils/100 WBC (Bld) 0.9 % Normal 0.9-7.0 [facility] Comment on above: Performed By: #### C BC #### [facility] [address] [place] [address] Dr. Tasha Dodson Erythrocyte distribution width (RBC) [Ratio] 13.0 % Normal 11.0-15.0 [facility] Comment on above: Performed By: #### C BC #### [facility] [address] [place] [address] Dr. Tasha Dodson Hematocrit (Bld) [Volume fraction] 38.5 % Normal 36.0-48.0 [facility] Comment on above: Performed By: #### C BC #### [facility] [address] [place] [address] Dr. Tasha Dodson Hemoglobin (Bld) [Mass/Vol] 13.4 g/dL Normal 12.0-16.0 [facility] Comment on above: Performed By: #### C BC #### [facility] [address] [place] [address] Dr. Tasha Dodson IG # 0.07 10e3/ul Critically high 0.00-0.03 [facility] Comment on above: Performed By: #### C BC #### [facility] [address] [place] [address] Dr. Tasha Dodson IG % 0.5 % Normal 0.0-0.5 [facility] Comment on above: Performed By: #### C BC #### [facility] [address] [place] [address] Dr. Tasha Dodson LYMPH # 2.8 103/ul Normal 1.2-3.8 [facility] Comment on above: Performed By: #### C BC #### [facility] [address] [place] [address] Dr. Tasha Dodson Lymphocytes/100 WBC (Bld) 20.5 % Normal 20.5-60.0 [facility] Comment on above: Performed By: #### C BC #### [facility] [address] [place] [address] Dr. Tasha Dodson MANUAL DIFF REQ NO Normal [facility] Comment on above: Performed By: #### C BC #### [facility] [address] [address] [address] Tasha Dodson MCH (RBC) [Entitic mass] 30.7 pg Normal 26.7-34.0 [facility] Comment on above: Performed By: #### C BC #### [facility] [address] [place] [address] Dr. Tasha Dodson MCHC (RBC) [Mass/Vol] 34.8 g/dL Normal 29.9-35.2 [facility] Comment on above: Performed By: #### C BC #### [facility] [address] [place] [address] Dr. Tasha Dodson MCV (RBC) [Entitic vol] 88.3 fL Normal 81.0-99.0 [facility] Comment on above: Performed By: #### C BC #### [facility] [address] [place] [address] Dr. Tasha Dodson MONO # 1.0 103/ul Critically high 0.3-0.8 [facility] Comment on above: Performed By: #### C BC #### [facility] [address] [place] [address] Dr. Tasha Dodson Monocytes/100 WBC (Bld) 7.4 % Normal 1.7-12.0 [facility] Comment on above: Performed By: #### C BC #### [facility] [address] [place] [address] Dr. Tasha Dodson NEUT # 9.5 103/ul Critically high 1.4-6.5 [facility] Comment on above: Performed By: #### C BC #### [facility] [address] [place] [address] Dr. Tasha Dodson Neutrophils/100 WBC (Bld) 70.1 % Normal 43.0-75.0 [facility] Comment on above: Performed By: #### C BC #### [facility] [address] [place] [address] Dr. Tasha Dodson Platelet mean volume (Bld) [Entitic vol] 8.0 fL Critically low 9.5-13.5 [facility] Comment on above: Performed By: #### C BC #### [facility] [address] [address] [address] Tasha Dodson PLT 492 103/ul Critically high 150-450 [facility] Comment on above: Performed By: #### C BC #### [facility] [address] [address] [address] Tasha Dodson RBC 4.36 106/ul Normal 4.20-5.40 [facility] Comment on above: Performed By: #### C BC #### [facility] [address] [address] [address] Tasha Dodson WBC 13.5 103/ul Critically high 4.0-11.0 [facility] Comment on above: Performed By: #### C BC #### [facility] [address] [place] [address] Dr. Tasha Dodson PROF 14(COMP METB)on 01-04- 022 Albumin [Mass/Vol] 3.8 g/dL Normal 3.4-5.0 [facility] Comment on above: Performed By: #### T SH, BMP #### [facility] [address] [place] [address] Dr. Tasha Dodson Albumin/Globulin [Mass ratio] 0.9 {ratio} Normal [facility] Comment on above: Performed By: #### T SH, BMP #### [facility] [address] [place] [address] Dr. Tasha Dodson ALP [Catalytic activity/Vol] 60 U/L Normal 46-116 [facility] Comment on above: Performed By: #### T SH, BMP #### [facility] [address] [place] [address] Dr. Tasha Dodson ALT [Catalytic activity/Vol] 26 U/L Normal 14-59 [facility] Comment on above: Performed By: #### T SH, BMP #### [facility] [address] [place] [address] Dr. Tasha Dodson Anion gap [Moles/Vol] 8.4 mmol/L Normal [facility] Comment on above: Performed By: #### T SH, BMP #### [facility] [address] [place] [address] Dr. Tasha Dodson AST [Catalytic activity/Vol] 19 U/L Normal 15-37 [facility] Comment on above: Performed By: #### T SH, BMP #### [facility] [address] [place] [address] Dr. Tasha Dodson Bilirubin [Mass/Vol] 0.4 mg/dL Normal 0.2-1.0 [facility] Comment on above: Performed By: #### T SH, BMP #### [facility] [address] [place] [address] Dr. Tasha Dodson Calcium [Mass/Vol] 10.1 mg/dL Normal 8.5-10.1 [facility] Comment on above: Performed By: #### T SH, BMP #### [facility] [address] [place] [address] Dr. Tasha Dodson Chloride [Moles/Vol] 92 mmol/L Critically low 98-107 [facility] Comment on above: Performed By: #### T SH, BMP #### [facility] [address] [place] [address] Dr. Tasha Dodson CO2 [Moles/Vol] 33.8 mmol/L Critically high 21.0-32.0 [facility] Comment on above: Performed By: #### T SH, BMP #### [facility] [address] [place] [address] Dr. Tasha Dodson Creatinine [Mass/Vol] 0.67 mg/dL Normal 0.55-1.02 [facility] Comment on above: Performed By: #### T SH, BMP #### [facility] [address] [place] [address] Dr. Tasha Dodson EGFR-AF CUBAN >60 Normal >=60 [facility] [place] Comment on above: Performed By: #### T SH, BMP #### [facility] [address] [place] [address] Dr. Tasha Dodson EGFR-NON AF CUBAN >60 Normal >=60 [facility] Comment on above: Performed By: #### T SH, BMP #### [facility] [address] [place], [place] [id number] Dr. Tasha Dodson Globulin (S) [Mass/Vol] 4.1 g/dL Normal T [facility] Comment on above: Performed By: #### T SH, BMP #### [facility] [address] [place] [address] Dr. Tasha Dodson Glucose [Mass/Vol] 106 mg/dL Normal 74-106 [facility] Comment on above: Performed By: #### T SH, BMP #### [facility] [address] [place] [address] Dr. Tasha Dodson Potassium [Moles/Vol] 3.2 mmol/L Critically low 3.5-5.1 [facility] Comment on above: Performed By: #### T SH, BMP #### [facility] [address] [place] [address] Dr. Tasha Dodson Protein [Mass/Vol] 7.9 g/dL Normal 6.4-8.2 [facility] Comment on above: Performed By: #### T SH, BMP #### [facility] [address] [place] [address] Dr. Tasha Dodson Sodium [Moles/Vol] 131 mmol/L Critically low 136-145 [facility] Comment on above: Performed By: #### T SH, BMP #### [facility] [address] [place] [address] Dr. Tasha Dodson Urea nitrogen [Mass/Vol] 10.0 mg/dL Normal 7.0-18.0 [facility] Comment on above: Performed By: #### T SH, BMP #### [facility] [address] [place] [address] Dr. Tasha Dodson Urea nitrogen/Creatinine [Mass ratio] 14.9 mg/mg Normal [facility] Comment on above: Performed By: #### T SH, BMP #### [facility] [address] [place] [address] Dr. Tasha Dodson CBC AUTO DIFFon 12-29-2021 BASO # 0.1 103/ul Normal 0.0-0.1 [facility] Comment on above: Performed By: #### C BC #### [facility] [address] [place] [address] Dr. Tasha Dodson Basophils/100 WBC (Bld) 0.5 % Normal 0.2-2.0 [facility] Comment on above: Performed By: #### C BC #### [facility] [address] [place] [address] Dr. Tasha Dodson EO # 0.1 103/ul Normal 0.0-0.7 [facility] Comment on above: Performed By: #### C BC #### [facility] [address] [place] [address] Dr. Tasha Dodson Eosinophils/100 WBC (Bld) 0.4 % Critically low 0.9-7.0 [facility] Comment on above: Performed By: #### C BC #### [facility] [address] [place] [address] Dr. Tasha Dodson Erythrocyte distribution width (RBC) [Ratio] 13.0 % Normal 11.0-15.0 [facility] Comment on above: Performed By: #### C BC #### [facility] [address] [place] [address] Dr. Tasha Dodson Hematocrit (Bld) [Volume fraction] 34.0 % Critically low 36.0-48.0 [facility] Comment on above: Performed By: #### C BC #### [facility] [address] [place] [address] Dr. Tasha Dodson Hemoglobin (Bld) [Mass/Vol] 12.0 g/dL Normal 12.0-16.0 [facility] Comment on above: Performed By: #### C BC #### [facility] [address] [place] [address] Dr. Tasha Dodson IG # 0.06 10e3/ul Critically high 0.00-0.03 [facility] Comment on above: Performed By: #### C BC #### [facility] [address] [place] [address] Dr. Tasha Dodson IG % 0.4 % Normal 0.0-0.5 [facility] Comment on above: Performed By: #### C BC #### [facility] [address] [address] [address] Tasha Dodson LYMPH # 2.5 103/ul Normal 1.2-3.8 [facility] Comment on above: Performed By: #### C BC #### [facility] [address] [address] [address] Tasha Dodson Lymphocytes/100 WBC (Bld) 17.4 % Critically low 20.5-60.0 [facility] Comment on above: Performed By: #### C BC #### [facility] [address] [address] [address] Tasha Dodson MANUAL DIFF REQ NO Normal [facility] Comment on above: Performed By: #### C BC #### [facility] [address] [place] [address] Dr. Tasha Dodson MCH (RBC) [Entitic mass] 31.0 pg Normal 26.7-34.0 [facility] Comment on above: Performed By: #### C BC #### [facility] [address] [place] [address] Dr. Tasha Dodson MCHC (RBC) [Mass/Vol] 35.3 g/dL Critically high 29.9-35.2 [facility] Comment on above: Performed By: #### C BC #### [facility] [address] [place] [address] Dr. Tasha Dodson MCV (RBC) [Entitic vol] 87.9 fL Normal 81.0-99.0 [facility] Comment on above: Performed By: #### C BC #### [facility] [address] [place] [address] Dr. Tasha Dodson MONO # 1.0 103/ul Critically high 0.3-0.8 [facility] Comment on above: Performed By: #### C BC #### [facility] [address] [place] [address] Dr. Tasha Dodson Monocytes/100 WBC (Bld) 6.9 % Normal 1.7-12.0 [facility] Comment on above: Performed By: #### C BC #### [facility] [address] [address] [address] Tasha Dodson NEUT # 10.8 103/ul Critically high 1.4-6.5 [facility] Comment on above: Performed By: #### C BC #### [facility] [address] [id number] Tasha Dodson Neutrophils/100 WBC (Bld) 74.4 % Normal 43.0-75.0 [facility] Comment on above: Performed By: #### C BC #### [facility] [address] [address] [address] Tasha Dodson Platelet mean volume (Bld) [Entitic vol] 8.4 fL Critically low 9.5-13.5 [facility] Comment on above: Performed By: #### C BC #### [facility] [address] [place] [address] Dr. Tasha Dodson PLT 370 103/ul Normal 150-450 [facility] Comment on above: Performed By: #### C BC #### [facility] [address] [place] [address] Dr. Tasha Dodson RBC 3.87 106/ul Critically low 4.20-5.40 [facility] Comment on above: Performed By: #### C BC #### [facility] [address] [place] [address] Dr. Tasha Dodson WBC 14.5 103/ul Critically high 4.0-11.0 [facility] Comment on above: Performed By: #### C BC #### [facility] [address] [place] [address] Dr. Tasha Dodson PROF 14(COMP METB)on 022 Albumin [Mass/Vol] 2.8 g/dL Critically low 3.4-5.0 [facility] Comment on above: Performed By: #### T JESI, BMP #### [facility] [address] [place] [address] Dr. Tasha Dodson Albumin/Globulin [Mass ratio] 0.9 {ratio} Normal [facility] Comment on above: Performed By: #### T JESI, BMP #### [facility] [address] [address] [address] Tasha Dodson ALP [Catalytic activity/Vol] 51 U/L Normal 46-116 [facility] Comment on above: Performed By: #### T SH, BMP #### [facility] [address] [address] [address] Tasha Dodson ALT [Catalytic activity/Vol] 15 U/L Normal 14-59 [facility] Comment on above: Performed By: #### T SH, BMP #### [facility] [address] [address] [address] Tasha Dodson Anion gap [Moles/Vol] 9.7 mmol/L Normal [facility] Comment on above: Performed By: #### T SH, BMP #### [facility] [address] [address] [address] Tasha Dodson AST [Catalytic activity/Vol] 15 U/L Normal 15-37 [facility] Comment on above: Performed By: #### T JESI, BMP #### [facility] [address] [address] [address] Tasha Dodson Bilirubin [Mass/Vol] 0.4 mg/dL Normal 0.2-1.0 [facility] Comment on above: Performed By: #### T JESI, BMP #### [facility] [address] [address] [address] Tasha Dodson Calcium [Mass/Vol] 8.6 mg/dL Normal 8.5-10.1 [facility] Comment on above: Performed By: #### T SH, BMP #### [facility] [address] [address] [address] Tasha Dodson Chloride [Moles/Vol] 97 mmol/L Critically low 98-107 [facility] Comment on above: Performed By: #### T SH, BMP #### [facility] [address] [address] [address] Tasha Dodson CO2 [Moles/Vol] 25.8 mmol/L Normal 21.0-32.0 [facility] [place] Comment on above: Performed By: #### T SH, BMP #### [facility] [address] [address] [address] Tasha Dodson Creatinine [Mass/Vol] 0.52 mg/dL Critically low 0.55-1.02 [facility] Comment on above: Performed By: #### T SH, BMP #### [facility] [address] [address] [address] Tasha Dodson EGFR-AF CUBAN >60 Normal >=60 [facility] Comment on above: Performed By: #### T SH, BMP #### [facility] [address] [place] [address] Dr. Tasha Dodson EGFR-NON AF CUBAN >60 Normal >=60 [facility] Comment on above: Performed By: #### T SH, BMP #### [facility] [address] [place] [address] Dr. Tasha Dodson Globulin (S) [Mass/Vol] 3.2 g/dL Normal [facility] Comment on above: Performed By: #### T SH, BMP #### [facility] [address] [place] [address] Dr. Tasha Dodson Glucose [Mass/Vol] 117 mg/dL Critically high 74-106 [facility] Comment on above: Performed By: #### T SH, BMP #### [facility] [address] [place] [address] Dr. Tasha Dodson Potassium [Moles/Vol] 3.5 mmol/L Normal 3.5-5.1 [facility] Comment on above: Performed By: #### T SH, BMP #### [facility] [address] [place] [address] Dr. Tasha Dodson Protein [Mass/Vol] 6.0 g/dL Critically low 6.4-8.2 [facility] Comment on above: Performed By: #### T SH, BMP #### [facility] [address] [place] [address] Dr. Tasha Dodson Sodium [Moles/Vol] 129 mmol/L Critically low 136-145 [facility] Comment on above: Performed By: #### T SH, BMP #### [facility] [address] [place] [address] Dr. Tasha Dodson Urea nitrogen [Mass/Vol] 4.0 mg/dL Critically low 7.0-18. 0 [facility] Comment on above: Performed By: #### T SH, BMP #### [facility] [address] [place] [address] Dr. Tasha Dodson Urea nitrogen/Creatinine [Mass ratio] 7.7 mg/mg Normal [facility] Comment on above: Performed By: #### T SH, BMP #### [facility] [address] [place] [address] Dr. Tasha Dodson CBC AUTO DIFFon 12-28-2021 BASO # 0.1 103/ul Normal 0.0-0.1 [facility] Comment on above: Performed By: #### C BC #### [facility] [address] [place] [address] Dr. Tasha Dodson Basophils/100 WBC (Bld) 0.4 % Normal 0.2-2.0 [facility] Comment on above: Performed By: #### C BC #### [facility] [address] [place] [address] Dr. Tasha Dodson EO # 0.1 103/ul Normal 0.0-0.7 [facility] Comment on above: Performed By: #### C BC #### [facility] [address] [place] [address] Dr. Tasha Dodson Eosinophils/100 WBC (Bld) 0.4 % Critically low 0.9-7.0 [facility] Comment on above: Performed By: #### C BC #### [facility] [address] [place] [address] Dr. Tasha Dodson Erythrocyte distribution width (RBC) [Ratio] 12.9 % Normal 11.0-15.0 [facility] Comment on above: Performed By: #### C BC #### [facility] [address] [place] [address] Dr. Tasha Dodson Hematocrit (Bld) [Volume fraction] 34.2 % Critically low 36.0-48.0 [facility] Comment on above: Performed By: #### C BC #### [facility] [address] [address] [address] Tasha Dodson Hemoglobin (Bld) [Mass/Vol] 12.4 g/dL Normal 12.0-16.0 [facility] Comment on above: Performed By: #### C BC #### [facility] [address] [address] [address] Tasha Dodson IG # 0.09 10e3/ul Critically high 0.00-0.03 [facility] Comment on above: Performed By: #### C BC #### [facility] [address] [address] [address] Tasha Dodson IG % 0.6 % Critically high 0.0-0.5 [facility] Comment on above: Performed By: #### C BC #### [facility] [address] [place] [address] Dr. Tasha Dodson LYMPH # 2.2 103/ul Normal 1.2-3.8 [facility] Comment on above: Performed By: #### C BC #### [facility] [address] [place] [address] Dr. Tasha Dodson Lymphocytes/100 WBC (Bld) 13.6 % Critically low 20.5-60.0 [facility] Comment on above: Performed By: #### C BC #### [facility] [address] [place] [address] Dr. Tasha Dodson MANUAL DIFF REQ NO Normal [facility] Comment on above: Performed By: #### C BC #### [facility] [address] [address] [address] Tasha Dodson MCH (RBC) [Entitic mass] 31.2 pg Normal 26.7-34.0 [facility] Comment on above: Performed By: #### C BC #### [facility] [address] [place] [address] Dr. Tasha Dodson MCHC (RBC) [Mass/Vol] 36.3 g/dL Critically high 29.9-35.2 [facility] Comment on above: Performed By: #### C BC #### [facility] [address] [address] [address] Tasha Dodson MCV (RBC) [Entitic vol] 85.9 fL Normal 81.0-99.0 [facility] Comment on above: Performed By: #### C BC #### [facility] [address] [address] [address] Tasha Dodson MONO # 1.3 103/ul Critically high 0.3-0.8 [facility] Comment on above: Performed By: #### C BC #### [facility] [address] [place] [address] Dr. Tasha Dodson Monocytes/100 WBC (Bld) 7.8 % Normal 1.7-12.0 [facility] Comment on above: Performed By: #### C BC #### [facility] [address] [place] [address] Dr. Tasha Dodson NEUT # 12.4 103/ul Critically high 1.4-6.5 [facility] Comment on above: Performed By: #### C BC #### [facility] [address] [place] [address] Dr. Tasha Dodson Neutrophils/100 WBC (Bld) 77.2 % Critically high 43.0-75.0 [facility] Comment on above: Performed By: #### C BC #### [facility] [address] [place] [address] Dr. Tasha Dodson Platelet mean volume (Bld) [Entitic vol] 8.6 fL Critically low 9.5-13.5 [facility] Comment on above: Performed By: #### C BC #### [facility] [address] [place] [address] Dr. Tasha Dodson PLT 385 103/ul Normal 150-450 [facility] Comment on above: Performed By: #### C BC #### [facility] [address] [place] [address] Dr. Tasha Dodson RBC 3.98 106/ul Critically low 4.20-5.40 [facility] Comment on above: Performed By: #### C BC #### [facility] [address] [place] [address] Dr. Tasha Dodson WBC 16.1 103/ul Critically high 4.0-11.0 [facility] Comment on above: Performed By: #### C BC #### [facility] [address] [place] [address] Dr. Tasha Dodson PROF 14(COMP METB)on 022 Albumin [Mass/Vol] 3.2 g/dL Critically low 3.4-5.0 [facility] Comment on above: Performed By: #### T SH, BMP #### [facility] [address] [place] [address] Dr. Tasha Dodson Albumin/Globulin [Mass ratio] 1.0 {ratio} Normal [facility] Comment on above: Performed By: #### T SH, BMP #### [facility] [address] [place] [address] Dr. Tasha Dodson ALP [Catalytic activity/Vol] 51 U/L Normal 46-116 [facility] Comment on above: Performed By: #### T SH, BMP #### [facility] [address] [place] [address] Dr. Tasha Dodson ALT [Catalytic activity/Vol] 17 U/L Normal 14-59 [facility] Comment on above: Performed By: #### T SH, BMP #### [facility] [address] [place] [address] Dr. Tasha Dodson Anion gap [Moles/Vol] 10.5 mmol/L Normal [facility] Comment on above: Performed By: #### T SH, BMP #### [facility] [address] [place] [address] Dr. Tasha Dodson AST [Catalytic activity/Vol] 18 U/L Normal 15-37 [facility] Comment on above: Performed By: #### T SH, BMP #### [facility] [address] [place] [address] Dr. Tasha Dodson Bilirubin [Mass/Vol] 0.4 mg/dL Normal 0.2-1.0 [facility] Comment on above: Performed By: #### T SH, BMP #### [facility] [address] [place] [address] Dr. Tasha Dodson Calcium [Mass/Vol] 8.3 mg/dL Critically low 8.5-10.1 [facility] Comment on above: Performed By: #### T SH, BMP #### [facility] [address] [place] [address] Dr. Tasha Dodson Chloride [Moles/Vol] 96 mmol/L Critically low 98-107 [facility] Comment on above: Performed By: #### T SH, BMP #### [facility] [address] [place] [address] Dr. Tasha Dodson CO2 [Moles/Vol] 24.5 mmol/L Normal 21.0-32.0 [facility] Comment on above: Performed By: #### T SH, BMP #### [facility] [address] [place] [address] Dr. Tasha Dodson Creatinine [Mass/Vol] 0.54 mg/dL Critically low 0.55-1.02 [facility] Comment on above: Performed By: #### T SH, BMP #### [facility] [address] [place] [address] Dr. Tasha Dodson EGFR-AF CUBAN >60 Normal >=60 [facility] Comment on above: Performed By: #### T SH, BMP #### [facility] [address] [place] [address] Dr. Tasha Dodson EGFR-NON AF CUBAN >60 Normal >=60 [facility] Comment on above: Performed By: #### T SH, BMP #### [facility] [address] [place] [address] Dr. Tasha Dodson Globulin (S) [Mass/Vol] 3.1 g/dL Normal [facility] Comment on above: Performed By: #### T SH, BMP #### [facility] [address] [place] [address] Dr. Tasha Dodson Glucose [Mass/Vol] 123 mg/dL Critically high 74-106 [facility] Comment on above: Performed By: #### T SH, BMP #### [facility] [address] [place] [address] Dr. Tasha Dodson Potassium [Moles/Vol] 3.0 mmol/L Critically low 3.5-5.1 [facility] Comment on above: Performed By: #### T JESI, BMP #### [facility] [address] [place] [address] Dr. Tasha Dodson Protein [Mass/Vol] 6.3 g/dL Critically low 6.4-8.2 [facility] Comment on above: Performed By: #### T SH, BMP #### [facility] [address] [place] [address] Dr. Tasha Dodson Sodium [Moles/Vol] 128 mmol/L Critically low 136-145 [facility] Comment on above: Performed By: #### T JESI, BMP #### [facility] [address] [place] [address] Dr. Tasha Dodson Urea nitrogen [Mass/Vol] 5.0 mg/dL Critically low 7.0-18. 0 [facility] Comment on above: Performed By: #### T JESI, BMP #### [facility] [address] [place] [address] Dr. Tasha Dodson Urea nitrogen/Creatinine [Mass ratio] 9.3 mg/mg Normal [facility] Comment on above: Performed By: #### T JESI, BMP #### [facility] [address] [place] [address] Dr. Tasha Dodson SODIUM RANDOM URINEon 2021 Sodium (U) [Moles/Vol] 135 mmol/L Critically high 30-90 [facility] Comment on above: Performed By: #### C BC #### [facility] [address] [place] [address] Dr. Tasha Dodson CBC AUTO DIFFon 12-27-2021 BASO # 0.0 103/ul Normal 0.0-0.1 [facility] Comment on above: Performed By: #### C BC #### [facility] [address] [place] [address] Dr. Tasha Dodson Basophils/100 WBC (Bld) 0.2 % Normal 0.2-2.0 [facility] Comment on above: Performed By: #### C BC #### [facility] [address] [address] [address] Tasha Dodson EO # 0.3 103/ul Normal 0.0-0.7 [facility] Comment on above: Performed By: #### C BC #### [facility] [address] [place] [address] Dr. Tasha Dodson Eosinophils/100 WBC (Bld) 2.3 % Normal 0.9-7.0 [facility] Comment on above: Performed By: #### C BC #### [facility] [address] [place] [address] Dr. Tasha Dodson Erythrocyte distribution width (RBC) [Ratio] 12.4 % Normal 11.0-15.0 [facility] Comment on above: Performed By: #### C BC #### [facility] [address] [place] [address] Dr. Tasha Dodson Hematocrit (Bld) [Volume fraction] 35.4 % Critically low 36.0-48.0 [facility] Comment on above: Performed By: #### C BC #### [facility] [address] [place] [address] Dr. Tasha Dodson Hemoglobin (Bld) [Mass/Vol] 12.9 g/dL Normal 12.0-16.0 [facility] Comment on above: Performed By: #### C BC #### [facility] [address] [place] [address] Dr. Tasha Dodson IG # 0.06 10e3/ul Critically high 0.00-0.03 [facility] Comment on above: Performed By: #### C BC #### [facility] [address] [place] [address] Dr. Tasha Dodson IG % 0.5 % Normal 0.0-0.5 [facility] Comment on above: Performed By: #### C BC #### [facility] [address] [place] [address] Dr. Tasha Dodson LYMPH # 2.0 103/ul Normal 1.2-3.8 [facility] Comment on above: Performed By: #### C BC #### [facility] [address] [address] [address] Tasha Dodson Lymphocytes/100 WBC (Bld) 15.7 % Critically low 20.5-60.0 [facility] Comment on above: Performed By: #### C BC #### [facility] [address] [place] [address] Dr. Tasha Dodson MANUAL DIFF REQ NO Normal [facility] Comment on above: Performed By: #### C BC #### [facility] [address] [place] [address] Dr. Tasha Dodson MCH (RBC) [Entitic mass] 31.0 pg Normal 26.7-34.0 [facility] Comment on above: Performed By: #### C BC #### [facility] [address] [place] [address] Dr. Tasha Dodson MCHC (RBC) [Mass/Vol] 36.4 g/dL Critically high 29.9-35.2 [facility] Comment on above: Performed By: #### C BC #### [facility] [address] [place] [address] Dr. Tasha Dodson MCV (RBC) [Entitic vol] 85.1 fL Normal 81.0-99.0 [facility] Comment on above: Performed By: #### C BC #### [facility] [address] [place] [address] Dr. Tasha Dodson MONO # 1.1 103/ul Critically high 0.3-0.8 [facility] Comment on above: Performed By: #### C BC #### [facility] [address] [place] [address] Dr. Tasha Dodson Monocytes/100 WBC (Bld) 8.3 % Normal 1.7-12.0 [facility] Comment on above: Performed By: #### C BC #### [facility] [address] [place] [address] Dr. Tasha Dodson NEUT # 9.5 103/ul Critically high 1.4-6.5 [facility] Comment on above: Performed By: #### C BC #### [facility] [address] [address] [address] Tasha Dodson Neutrophils/100 WBC (Bld) 73.0 % Normal 43.0-75.0 [facility] Comment on above: Performed By: #### C BC #### [facility] [address] [address] [address] Tasha Dodson Platelet mean volume (Bld) [Entitic vol] 8.3 fL Critically low 9.5-13.5 [facility] Comment on above: Performed By: #### C BC #### [facility] [address] [address] [address] Tasha Dodson PLT 408 103/ul Normal 150-450 [facility] Comment on above: Performed By: #### C BC #### [facility] [address] [place] [address] Dr. Tasha Dodson RBC 4.16 106/ul Critically low 4.20-5.40 [facility] Comment on above: Performed By: #### C BC #### [facility] [address] [address] [address] Tasha Dodson WBC 13.0 103/ul Critically high 4.0-11.0 [facility] Comment on above: Performed By: #### C BC #### [facility] [address] [address] [address] Tasha Dodson CULTURE SPUTUMon 12-27-2021 CULTURE SPUTUM Culture Observations: NORMAL RESPIRATORY AMADOU. Normal [facility] Comment on above: Performed By: #### C BC #### [facility] [address] [address] [address] Tasha Dodson PROF 14(COMP METB)on 022 Albumin [Mass/Vol] 3.4 g/dL Normal 3.4-5.0 [facility] Comment on above: Performed By: #### C MADM, LIPA, BNP, CMP #### [facility] [address] [address] [address] Tasha Dodson Albumin/Globulin [Mass ratio] 1.0 {ratio} Normal [facility] Comment on above: Performed By: #### C MADM, LIPA, BNP, CMP #### [facility] [address] [place] [address] Dr. Tasha Dodson ALP [Catalytic activity/Vol] 54 U/L Normal 46-116 [facility] Comment on above: Performed By: #### C MADM, LIPA, BNP, CMP #### [facility] [address] [place] [address] Dr. Tasha Dodson ALT [Catalytic activity/Vol] 20 U/L Normal 14-59 [facility] Comment on above: Performed By: #### C MADM, LIPA, BNP, CMP #### [facility] [address] [place] [address] Dr. Tasha Dodson Anion gap [Moles/Vol] 10.8 mmol/L Normal [facility] Comment on above: Performed By: #### C MADM, LIPA, BNP, CMP #### [facility] [address] [place] [address] Dr. Tasha Dodson AST [Catalytic activity/Vol] 19 U/L Normal 15-37 [facility] Comment on above: Performed By: #### C MADM, LIPA, BNP, CMP #### [facility] [address] [place] [address] Dr. Tasha Dodson Bilirubin [Mass/Vol] 0.5 mg/dL Normal 0.2-1.0 [facility] Comment on above: Performed By: #### C MADM, LIPA, BNP, CMP #### [facility] [address] [place] [address] Dr. Tasha Dodson Calcium [Mass/Vol] 8.3 mg/dL Critically low 8.5-10.1 [facility] Comment on above: Performed By: #### C MADM, LIPA, BNP, CMP #### [facility] [address] [place] [address] Dr. Tasha Dodson Chloride [Moles/Vol] 89 mmol/L Critically low 98-107 [facility] Comment on above: Performed By: #### C MADM, LIPA, BNP, CMP #### [facility] [address] [address] [address] Tasha Dodson CO2 [Moles/Vol] 27.0 mmol/L Normal 21.0-32.0 [facility] Comment on above: Performed By: #### C MADM, LIPA, BNP, CMP #### [facility] [address] [address] [address] Tasha Dodson Creatinine [Mass/Vol] 0.69 mg/dL Normal 0.55-1.02 [facility] Comment on above: Performed By: #### C MADM, LIPA, BNP, CMP #### [facility] [address] [address] [address] Tasha Dodson EGFR-AF CUBAN >60 Normal >=60 [facility] Comment on above: Performed By: #### C MADM, LIPA, BNP, CMP #### [facility] [address] [address] [address] Tasha Dodson EGFR-NON AF CUBAN >60 Normal >=60 [facility] Comment on above: Performed By: #### C MADM, LIPA, BNP, CMP #### [facility] [address] [address] [address] Tasha Dodson Globulin (S) [Mass/Vol] 3.3 g/dL Normal [facility] Comment on above: Performed By: #### C MADM, LIPA, BNP, CMP #### [facility] [address] [address] [address] Tasha Dodson Glucose [Mass/Vol] 115 mg/dL Critically high 74-106 [facility] Comment on above: Performed By: #### C MADM, LIPA, BNP, CMP #### [facility] [address] [address] [address] Tasha Dodson Potassium [Moles/Vol] 2.7 mmol/L Critically low 3.5-5.1 [facility] Comment on above: Result Comment: Test Repeated. Critical Value Verified Performed By: #### C MADM, LIPA, BNP, CMP #### [facility] [address] [place] [address] Dr. Tasha Dodson Protein [Mass/Vol] 6.7 g/dL Normal 6.4-8.2 [facility] Comment on above: Performed By: #### C MADM, LIPA, BNP, CMP #### [facility] [address] [address] [address] Tasha Dodson Sodium [Moles/Vol] 123 mmol/L Critically low 136-145 [facility] Comment on above: Result Comment: Test Repeated. Critical Value Verified Performed By: #### C MADM, LIPA, BNP, CMP #### [facility] [address] [address] [address] Tasha Dodson Urea nitrogen [Mass/Vol] 6.0 mg/dL Critically low 7.0-18. 0 [facility] Comment on above: Performed By: #### C MADM, LIPA, BNP, CMP #### [facility] [address] [place] [address] Dr. Tasha Dodson Urea nitrogen/Creatinine [Mass ratio] 8.7 mg/mg Normal [facility] Comment on above: Performed By: #### C MADM, LIPA, BNP, CMP #### [facility] [address] [address] [address] Tasha Dodson SPUTUM GRAM STAINon 12-28-19 COMMENTS Normal [facility] Comment on above: Performed By: #### T SH, BMP #### [facility] [address] [place] [address] Dr. Tasha Dodson DIPHTHEROIDS Normal [facility] Comment on above: Performed By: #### T SH, BMP #### [facility] [address] [place] [address] Dr. Tasha Dodson EPITHELIALS <25 Normal [facility] Comment on above: Performed By: #### T SH, BMP #### [facility] [address] [place] [address] Dr. Tasha Dodson FUNGAL ELEMENTS Normal [facility] Comment on above: Performed By: #### T SH, BMP #### [facility] [address] [place] [address] Dr. Tasha Dodson GRAM NEG BACILLI Normal [facility] Comment on above: Performed By: #### T SH, BMP #### [facility] [address] [address] [address] Tasha Dodson GRAM NEG DIPPLOCOCCI Normal [facility] Comment on above: Performed By: #### T SH, BMP #### [facility] [address] [address] [address] Tasha Dodson GRAM POS BACILLI Normal [facility] Comment on above: Performed By: #### T SH, BMP #### [facility] [address] [address] [address] Tasha Dodson GRAM POSITIVE COCCI MODERATE Normal [facility] Comment on above: Performed By: #### T SH, BMP #### [facility] [address] [place] [address] Dr. Tasha Dodson WBC (Bld) [#/Vol] 10*3/uL Normal [facility] Comment on above: Performed By: #### T SH, BMP #### [facility] [address] [place] [address] Dr. Tasha Dodson BNPon 12-26-2021 Natriuretic peptide B (Bld) [Mass/Vol] 148.0 pg/mL Normal <=1,800.0 [facility] Comment on above: Performed By: #### C MADM, LIPA, BNP, CMP #### [facility] [address] [place] [address] Dr. Tasha Dodson CARDIAC ANGELO ADMITon 022 CK [Catalytic activity/Vol] 139 U/L Normal 26-192 [facility] Comment on above: Performed By: #### C MADM, LIPA, BNP, CMP #### [facility] [address] [place] [address] Dr. Tasha Dodson CK.MB [Mass/Vol] 2.43 ng/mL Normal <=3.60 [facility] Comment on above: Performed By: #### C MADM, LIPA, BNP, CMP #### [facility] [address] [place] [address] Dr. Tasha Dodson HSTROP 12.2 pg/mL Normal 4.0-51.3 [facility] Comment on above: Result Comment: CUT- OFF POINTS HAVE BEEN ESTABLISHED BASED ON THE FOURTH UNIVERSAL DEFINITIONS OF MYOCARDIAL INFARCTION. THE UPPER REFERENCE LIMIT (URL) OF TROPONIN, DEFINED THE 99TH PERCENTILE OF cTnI DISTRIBUTION IN A REFERENCE POPULATION, HAS BEEN CONFIRMED THE DECISION THRESHOLD FOR MA DIAGNOSIS. Performed By: #### C MADM, LIPA, BNP, CMP #### [facility] [address] [place] [address] Dr. Tasha Dodson ELIZABETH 110 ng/mL Critically high 9-82 [facility] Comment on above: Performed By: #### C MADM, LIPA, BNP, CMP #### [facility] [address] [place] [address] Dr. Tasha Dodson CBC AUTO DIFFon 12-26-2021 BASO # 0.0 103/ul Normal 0.0-0.1 [facility] Comment on above: Performed By: #### C MADM, LIPA, BNP, CMP #### [facility] [address] [place] [address] Dr. Tasha Dodson Basophils/100 WBC (Bld) 0.3 % Normal 0.2-2.0 [facility] Comment on above: Performed By: #### C MADM, LIPA, BNP, CMP #### [facility] [address] [place] [address] Dr. Tasha Dodson EO # 0.1 103/ul Normal 0.0-0.7 [facility] Comment on above: Performed By: #### C MADM, LIPA, BNP, CMP #### [facility] [address] [place] [address] Dr. Tasha Dodson Eosinophils/100 WBC (Bld) 0.7 % Critically low 0.9-7.0 [facility] Comment on above: Performed By: #### C MADM, LIPA, BNP, CMP #### [facility] [address] [place] [address] Dr. Tasha Dodson Erythrocyte distribution width (RBC) [Ratio] 12.4 % Normal 11.0-15.0 [facility] Comment on above: Performed By: #### C MADM, LIPA, BNP, CMP #### [facility] [address] [place] [address] Dr. Tasha Dodson Hematocrit (Bld) [Volume fraction] 38.9 % Normal 36.0-48.0 [facility] Comment on above: Performed By: #### C MADM, LIPA, BNP, CMP #### [facility] [address] [place] [address] Dr. Tasha Dodson Hemoglobin (Bld) [Mass/Vol] 14.4 g/dL Normal 12.0-16.0 [facility] Comment on above: Performed By: #### C MADM, LIPA, BNP, CMP #### [facility] [address] [place] [address] Dr. Tasha Dodson IG # 0.08 10e3/ul Critically high 0.00-0.03 [facility] Comment on above: Performed By: #### C MADM, LIPA, BNP, CMP #### [facility] [address] [place] [address] Dr. Tasha Dodson IG % 0.5 % Normal 0.0-0.5 [facility] Comment on above: Performed By: #### C MADM, LIPA, BNP, CMP #### [facility] [address] [place] [address] Dr. Tasha Dodson LYMPH # 2.2 103/ul Normal 1.2-3.8 [facility] Comment on above: Performed By: #### C MADM, LIPA, BNP, CMP #### [facility] [address] [place] [address] Dr. Tasha Dodson Lymphocytes/100 WBC (Bld) 15.0 % Critically low 20.5-60.0 [facility] Comment on above: Performed By: #### C MADM, LIPA, BNP, CMP #### [facility] [address] [place] [address] Dr. Tasha Dodson MANUAL DIFF REQ NO Normal [facility] Comment on above: Performed By: #### C MADM, LIPA, BNP, CMP #### [facility] [address] [place] [address] Dr. Tasha Dodson MCH (RBC) [Entitic mass] 31.6 pg Normal 26.7-34.0 [facility] Comment on above: Performed By: #### C MADM, LIPA, BNP, CMP #### [facility] [address] [place] [address] Dr. Tasha Dodson MCHC (RBC) [Mass/Vol] 37.0 g/dL Critically high 29.9-35.2 [facility] Comment on above: Performed By: #### C MADM, LIPA, BNP, CMP #### [facility] [address] [place] [address] Dr. Tasha Dodson MCV (RBC) [Entitic vol] 85.3 fL Normal 81.0-99.0 [facility] Comment on above: Performed By: #### C MADM, LIPA, BNP, CMP #### [facility] [address] [place] [address] Dr. Tasha Dodson MONO # 1.0 103/ul Critically high 0.3-0.8 [facility] Comment on above: Performed By: #### C MADM, LIPA, BNP, CMP #### [facility] [address] [place] [address] Dr. Tasha Dodson Monocytes/100 WBC (Bld) 6.8 % Normal 1.7-12.0 [facility] Comment on above: Performed By: #### C MADM, LIPA, BNP, CMP #### [facility] [address] [place] [address] Dr. Tasha Dodson NEUT # 11.5 103/ul Critically high 1.4-6.5 [facility] Comment on above: Performed By: #### C MADM, LIPA, BNP, CMP #### [facility] [address] [place] [address] Dr. Tasha Dodson Neutrophils/100 WBC (Bld) 76.7 % Critically high 43.0-75.0 [facility] Comment on above: Performed By: #### C MADM, LIPA, BNP, CMP #### [facility] [address] [place] [address] Dr. Tasha Dodson Platelet mean volume (Bld) [Entitic vol] 8.6 fL Critically low 9.5-13.5 [facility] Comment on above: Performed By: #### C MADM, LIPA, BNP, CMP #### [facility] [address] [address] [address] Tasha Dodson PLT 491 103/ul Critically high 150-450 [facility] Comment on above: Performed By: #### C MADM, LIPA, BNP, CMP #### [facility] [address] [place] [address] Dr. Tasha Dodson RBC 4.56 106/ul Normal 4.20-5.40 [facility] Comment on above: Performed By: #### C MADM, LIPA, BNP, CMP #### [facility] [address] [place] [address] Dr. Tasha Dodson WBC 15.0 103/ul Critically high 4.0-11.0 [facility] [place] Comment on above: Performed By: #### C MADM, LIPA, BNP, CMP #### [facility] [address] [place] [address] Dr. Tasha Dodson CULTURE URINEon 12-26-2021 CULTURE URINE Culture Observations: LIGHT GROWTH OF MIXED GENITAL AMAODU. NO POTENTIAL PATHOGENS SEEN. Normal [facility] Comment on above: Performed By: #### C BC #### [facility] [address] [place] [address] Dr. Tasha Dodson [facility]on SARS-CoV-2 (COVID-19) RNA CARITO+probe Ql (Unsp spec) Not detected Normal NOT DETECTED [facility] Comment on above: Result Comment: When [...] for this test is supported by the [place] of Health and Human Service's declaration that [...] #### C MADM, LIPA, BNP, CMP #### [facility] [address] [place] [address] Dr. Tasha Dodson ER URINE PROFILEon 2 Bilirubin Ql (U) Negative Normal NEGATIVE [facility] [place] Comment on above: Performed By: #### T SH, BMP #### [facility] [address] [place] [address] Dr. Tasha Dodson Clarity (U) CLEAR Normal CLEAR [facility] Comment on above: Performed By: #### T SH, BMP #### [facility] [address] [place] [address] Dr. Tasha Dodson Color (U) LT. YELLOW Normal YELLOW [facility] Comment on above: Performed By: #### T SH, BMP #### [facility] [address] [place] [address] Dr. Tasha FERNANDES A micrscopic examination will be performed if indicated. Normal [facility] Comment on above: Performed By: #### T SH, BMP #### [facility] [address] [place] [address] Dr. Tasha Dodson Glucose Ql (U) Negative Normal NEGATIVE [facility] Comment on above: Performed By: #### T SH, BMP #### [facility] [address] [place] [address] Dr. Tasha Dodson Hemoglobin Ql (U) TRACE-INTACT Abnormal NEGATIVE [facility] Comment on above: Performed By: #### T SH, BMP #### [facility] [address] [place] [address] Dr. Tasha Dodson Ketones Ql (U) TRACE Abnormal NEGATIVE [facility] Comment on above: Performed By: #### T SH, BMP #### [facility] [address] [place] [address] Dr. Tasha Dodson LEUKOCYTES Negative Normal NEGATIVE [facility] Comment on above: Performed By: #### T SH, BMP #### [facility] [address] [place] [address] Dr. Tasha Dodson Nitrite Ql (U) Negative Normal NEGATIVE [facility] Comment on above: Performed By: #### T SH, BMP #### [facility] [address] [place] [address] Dr. Tasha Dodson pH (U) 7.0 [pH] Normal 5-9 [facility] Comment on above: Performed By: #### T SH, BMP #### [facility] [address] [place] [address] Dr. Tasha Dodson SPEC GRAVITY 1.010 Normal 1.005-<=1.02 5 [facility] Comment on above: Performed By: #### T SH, BMP #### [facility] [address] [place] [address] Dr. Tasha Dodson UA PROTEIN Negative Normal NEGATIVE/ TRACE [facility] Comment on above: Performed By: #### T SH, BMP #### [facility] [address] [place] [address] Dr. Tasha Dodson UR MICRO IND INDICATED Normal [facility] Comment on above: Performed By: #### T SH, BMP #### [facility] [address] [place] [address] Dr. Tasha Dodson Urobilinogen Qn (U) 0.2 {Juan'U}/dL Normal 0.2 - 1. 0 [facility] Comment on above: Performed By: #### T SH, BMP #### [facility] [address] [place] [address] Dr. Tasha Dodson INFLUENZA A AND B AGon 12-26 INFLUANEGH SEE BELOW Normal [facility] Comment on above: Result Comment: Nega tive for Flu A protein angiten. Infection due to Flu A cannot be ruled out. Flu A angiten in the sample may be below the detection limit of the test. Performed By: #### C BC #### [facility] [address] [place] [address] Dr. Tasha Dodson [facility] SEE BELOW Normal [facility] Comment on above: Result Comment: Nega tive for Flu B protein antigen. Infection due to Flu B cannot be ruled out. Flu B antigen in the sample may be below the detection limit of the test. Performed By: #### C BC #### [facility] [address] [place] [address] Dr. Tasha Dodson INFLUENZA A AG Negative Normal NEGATIVE SEE COMMENT [facility] Comment on above: Performed By: #### C BC #### [facility] [address] [place] [address] Dr. Tasha Dodson INFLUENZA B AG Negative Normal NEGATIVE SEE COMMENT [facility] Comment on above: Performed By: #### C BC #### [facility] [address] [place] [address] Dr. Tasha Dodson INTERNAL CONTROLS Within Normal Limits Normal Wi thin Normal Limits [facility] Comment on above: Performed By: #### C BC #### [facility] [address] [place] [address] Dr. Tasha Dodson LACTATE/LACTIC ACIDon 2021 Lactate [Moles/Vol] 1.5 mmol/L Normal 0.4-1.[address] [facility] Comment on above: Performed By: #### T SH, BMP #### [facility] [address] [place] [address] Dr. Tasha Dodson LIPASEon 12-26-2021 Lipase [Catalytic activity/Vol] 96.0 U/L Normal 73.0-393.0 [facility] Comment on above: Performed By: #### C MADM, LIPA, BNP, CMP #### [facility] [address] [place] [address] Dr. Tasha Dodson PROF 14(COMP METB)on 022 Albumin [Mass/Vol] 4.2 g/dL Normal 3.4-5.0 [facility] Comment on above: Performed By: #### C MADM, LIPA, BNP, CMP #### [facility] [address] [place] [address] Dr. Tasha Dodson Albumin/Globulin [Mass ratio] 1.1 {ratio} Normal [facility] Comment on above: Performed By: #### C MADM, LIPA, BNP, CMP #### [facility] [address] [place] [address] Dr. Tasha Dodson ALP [Catalytic activity/Vol] 68 U/L Normal 46-116 [facility] Comment on above: Performed By: #### C MADM, LIPA, BNP, CMP #### [facility] [address] [place] [address] Dr. Tasha Dodson ALT [Catalytic activity/Vol] 23 U/L Normal 14-59 [facility] Comment on above: Performed By: #### C MADM, LIPA, BNP, CMP #### [facility] [address] [place] [address] Dr. Tasha Dodson Anion gap [Moles/Vol] 12.3 mmol/L Normal [facility] Comment on above: Performed By: #### C MADM, LIPA, BNP, CMP #### [facility] [address] [place] [address] Dr. Tasha Dodson AST [Catalytic activity/Vol] 25 U/L Normal 15-37 [facility] Comment on above: Performed By: #### C MADM, LIPA, BNP, CMP #### [facility] [address] [place] [address] Dr. Tasha Dodson Bilirubin [Mass/Vol] 0.7 mg/dL Normal 0.2-1.0 [facility] Comment on above: Performed By: #### C MADM, LIPA, BNP, CMP #### [facility] [address] [place] [address] Dr. Tasha Dodson Calcium [Mass/Vol] 9.5 mg/dL Normal 8.5-10.1 [facility] Comment on above: Performed By: #### C MADM, LIPA, BNP, CMP #### [facility] [address] [place] [address] Dr. Tasha Dodson Chloride [Moles/Vol] 80 mmol/L Critically low 98-107 [facility] Comment on above: Performed By: #### C MADM, LIPA, BNP, CMP #### [facility] [address] [address] [address] Tasha Dodson CO2 [Moles/Vol] 27.1 mmol/L Normal 21.0-32.0 [facility] Comment on above: Performed By: #### C MADM, LIPA, BNP, CMP #### [facility] [address] [address] [address] Tasha Dodson Creatinine [Mass/Vol] 0.85 mg/dL Normal 0.55-1.02 [facility] Comment on above: Performed By: #### C MADM, LIPA, BNP, CMP #### [facility] [address] [address] [address] Tasha Dodson EGFR-AF CUBAN >60 Normal >=60 [facility] Comment on above: Performed By: #### C MADM, LIPA, BNP, CMP #### [facility] [address] [address] [address] Tasha Dodson EGFR-NON AF CUBAN >60 Normal >=60 [facility] Comment on above: Performed By: #### C MADM, LIPA, BNP, CMP #### [facility] [address] [address] [address] Tasha Dodson Globulin (S) [Mass/Vol] 3.9 g/dL Normal [facility] Comment on above: Performed By: #### C MADM, LIPA, BNP, CMP #### [facility] [address] [address] [address] Tasha Dodson Glucose [Mass/Vol] 132 mg/dL Critically high 74-106 [facility] Comment on above: Performed By: #### C MADM, LIPA, BNP, CMP #### [facility] [address] [address] [address] Tasha Dodson Potassium [Moles/Vol] 2.4 mmol/L Critically low 3.5-5.1 [facility] Comment on above: Performed By: #### C MADM, LIPA, BNP, CMP #### [facility] [address] [place] [address] Dr. Tasha Dodson Protein [Mass/Vol] 8.1 g/dL Normal 6.4-8.2 [facility] Comment on above: Performed By: #### C MADM, LIPA, BNP, CMP #### [facility] [address] [place] [address] Dr. Tasha Dodson Sodium [Moles/Vol] 116 mmol/L Critically low 136-145 [facility] Comment on above: Performed By: #### C MADM, LIPA, BNP, CMP #### [facility] [address] [place] [address] Dr. Tasha Dodson Urea nitrogen [Mass/Vol] 12.0 mg/dL Normal 7.0-18.0 [facility] Comment on above: Performed By: #### C MADM, LIPA, BNP, CMP #### [facility] [address] [place] [address] Dr. Tasha Dodson Urea nitrogen/Creatinine [Mass ratio] 14.1 mg/mg [facility] Comment on above: Performed By: #### C MADM, LIPA, BNP, CMP #### [facility] [address] [place] [address] Dr. Tasha Dodson PROF CHEM 8 (BAS METB)on Anion gap [Moles/Vol] 11.4 mmol/L Normal [facility] Comment on above: Performed By: #### T SH, BMP #### [facility] [address] [place] [address] Dr. Tasha Dodson Calcium [Mass/Vol] 8.4 mg/dL Critically low 8.5-10.1 [facility] Comment on above: Performed By: #### T SH, BMP #### [facility] [address] [place] [address] Dr. Tasha Dodson Chloride [Moles/Vol] 89 mmol/L Critically low 98-107 [facility] Comment on above: Performed By: #### T SH, BMP #### [facility] [address] [address] [address] Tasha Dodson CO2 [Moles/Vol] 25.5 mmol/L Normal 21.0-32.0 [facility] Comment on above: Performed By: #### T SH, BMP #### [facility] [address] [address] [address] Tasha Dodson Creatinine [Mass/Vol] 0.89 mg/dL Normal 0.55-1.02 [facility] Comment on above: Performed By: #### T SH, BMP #### [facility] [address] [address] [address] Tasha Dodson EGFR-AF CUBAN >60 Normal >=60 [facility] Comment on above: Performed By: #### T SH, BMP #### [facility] [address] [address] [address] Tasha Dodson EGFR-NON AF CUBAN 60 mL/min/1.73m2 Normal >=60 [facility] Comment on above: Performed By: #### T SH, BMP #### [facility] [address] [address] [address] Tasha Dodson Glucose [Mass/Vol] 166 mg/dL Critically high 74-106 [facility] Comment on above: Performed By: #### T SH, BMP #### [facility] [address] [address] [address] Tasha Dodson Potassium [Moles/Vol] 3.0 mmol/L Critically low 3.5-5.1 [facility] Comment on above: Performed By: #### T SH, BMP #### [facility] [address] [address] [address] Tasha Dodson Sodium [Moles/Vol] 123 mmol/L Critically low 136-145 [facility] Comment on above: Performed By: #### T SH, BMP #### [facility] [address] [address] [address] Tasha Dodson Urea nitrogen [Mass/Vol] 9.0 mg/dL Normal 7.0-18.0 [facility] Comment on above: Performed By: #### T SH, BMP #### [facility] [address] [place] [address] Dr. Tasha Dodson Urea nitrogen/Creatinine [Mass ratio] 10.1 mg/mg Normal [facility] Comment on above: Performed By: #### T JESI, BMP #### [facility] [address] [place] [address] Dr. Tasha Dodson PROTIMEon 12-26-2021 INR Coag (PPP) [Relative time] 0.96 {INR} Normal [facility] Comment on above: Performed By: #### T JESI, BMP #### [facility] [address] [place] [address] Dr. Tasha Dodson INR GUIDELINES SEE BELOW Normal [facility] Comment on above: Result Comment: JO RED INR: 2.0 - 3.0 CONDITIONS NOT LISTED BELOW 2.5 - 3.5 FOR PROSTHETIC HEART VALVE REPLACEMENT 2.5 - 3.5 RECURRENT THROMBOSIS Performed By: #### T JESI, BMP #### [facility] [address] [place] [address] Dr. Tasha Dodson PT Coag (PPP) [Time] 10.4 s Normal 9.0-11.6 [facility] Comment on above: Performed By: #### T JESI, BMP #### [facility] [address] [place] [address] Dr. Tasha Dodson PTTon 12-26-2021 aPTT Coag (Bld) [Time] 26.2 s Normal 22.3-36.2 [facility] Comment on above: Performed By: #### T JESI, BMP #### [facility] [address] [place] [address] Dr. Tasha Dodson SODIUM RANDOM URINEon 2021 Sodium (U) [Moles/Vol] 71 mmol/L Normal 30-90 [facility] Comment on above: Performed By: #### T JESI, BMP #### [facility] [address] [place] [address] Dr. Tasha Dodson T4on 12-26-2021 T4 [Mass/Vol] 10.60 ug/dL Normal 4.80-13.90 [facility] Comment on above: Performed By: #### C BC #### [facility] [address] [place] [address] Dr. Tasha Dodson TSHon 12-26-2021 TSH 5.236 uIU/mL Critically high 0.358-3.740 [facility] Comment on above: Performed By: #### C BC #### [facility] [address] [place] [address] Dr. Tasha Dodson URINE MICROSCOPIC ONLYon BACTERIA TRACE Abnormal NONE SEEN [facility] Comment on above: Performed By: #### T SH, BMP #### [facility] [address] [place] [address] Dr. Tasha Dodson Bacteria identified Cx Nom (U) NOT INDICATED Normal [facility] Comment on above: Performed By: #### T SH, BMP #### [facility] [address] [place] [address] Dr. Tasha Dodson CAST NONE SEEN Normal NONE SEEN [facility] Comment on above: Performed By: #### T SH, BMP #### [facility] [address] [place] [address] Dr. Tasha Dodson Crystals LM Nom (Urine sed) NONE SEEN Normal NONE SEEN [facility] Comment on above: Performed By: #### T SH, BMP #### [facility] [address] [place] [address] Dr. Tasha Dodson Epithelial cells LM Ql (Urine sed) NONE SEEN Normal NONE SEEN /RARE [facility] Comment on above: Performed By: #### T SH, BMP #### [facility] [address] [place] [address] Dr. Tasha Dodson MUCOUS NONE SEEN Normal NONE SEEN [facility] Comment on above: Performed By: #### T SH, BMP #### [facility] [address] [place] [address] Dr. Tasha Dodson RBC 0-2 Normal 0-2 [facility] Comment on above: Performed By: #### T SH, BMP #### [facility] [address] [place] [address] Dr. Tasha Dodson WBC 0-2 Abnormal NONE SEEN [facility] Comment on above: Performed By: #### T SH, BMP #### [facility] [address] [address] [address] Tasha Dodson XR CHEST 1 Von 12-26-2021 XR CHEST 1 V EXAMINATION: XR CHEST 1 V, 12/26/2021 10:49 AM EST HISTORY: COUGH COMPARISON: 01/04/2020 TECHNIQUE: AP portable view of the chest performed. FINDINGS: Medical devices: None. Cardiomediastinal silhouette is within normal limits. The lungs are clear. No large pleural effusion, or pneumothorax. IMPRESSION: 1. No acute cardiopulmonary abnormality. Electronically authenticated by: TING MIXON Date: 2021-12-26 11:32 Normal [facility] XR LSPINE MIN 4 VIEWSon 11-20 XR LSPINE MIN 4 VIEWS EXAMINATION: XR LSPINE MIN 4 VIEWS HISTORY: Right side sciatica [...] JESUS BRUNO Date: 2021-11-30 22:52 Normal [facility] CBC AUTO DIFFon 11-09-2021 BASO # 0.1 103/ul Normal 0.0-0.1 [facility] Comment on above: Performed By: #### C MADM, LIPA, BNP, CMP #### [facility] [address] [place], [place] [address] Dr. Tasha Dodson Basophils/100 WBC (Bld) 0.7 % Normal 0.2-2.[address] [facility] Comment on above: Performed By: #### C MADM, LIPA, BNP, CMP #### [facility] [address] [place] [address] Dr. Tasha Dodson EO # 0.2 103/ul Normal 0.0-0.7 [facility] Comment on above: Performed By: #### C MADM, LIPA, BNP, CMP #### [facility] [address] [place] [address] Dr. Tasha Dodson Eosinophils/100 WBC (Bld) 1.8 % Normal 0.9-7.0 [facility] Comment on above: Performed By: #### C MADM, LIPA, BNP, CMP #### [facility] [address] [place] [address] Dr. Tasha Dodson Erythrocyte distribution width (RBC) [Ratio] 13.0 % Normal 11.0-15.0 [facility] Comment on above: Performed By: #### C MADM, LIPA, BNP, CMP #### [facility] [address] [place] [address] Dr. Tasha Dodson Hematocrit (Bld) [Volume fraction] 33.8 % Critically low 36.0-48.0 [facility] Comment on above: Performed By: #### C MADM, LIPA, BNP, CMP #### [facility] [address] [place] [address] Dr. Tasha Dodson Hemoglobin (Bld) [Mass/Vol] 12.5 g/dL Normal 12.0-16.0 [facility] Comment on above: Performed By: #### C MADM, LIPA, BNP, CMP #### [facility] [address] [place] [address] Dr. Tasha Dodson IG # 0.02 10e3/ul Normal 0.00-0.03 [facility] Comment on above: Performed By: #### C MADM, LIPA, BNP, CMP #### [facility] [address] [place] [address] Dr. Tasha Dodson IG % 0.2 % Normal 0.0-0.5 [facility] Comment on above: Performed By: #### C MADM, LIPA, BNP, CMP #### [facility] [address] [place] [address] Dr. Tasha Dodson LYMPH # 2.9 103/ul Normal 1.2-3.8 [facility] Comment on above: Performed By: #### C MADM, LIPA, BNP, CMP #### [facility] [address] [place] [address] Dr. Tasha Dodson Lymphocytes/100 WBC (Bld) 29.4 % Normal 20.5-60.0 [facility] Comment on above: Performed By: #### C MADM, LIPA, BNP, CMP #### [facility] [address] [place] [address] Dr. Tasha Dodson MANUAL DIFF REQ NO Normal [facility] Comment on above: Performed By: #### C MADM, LIPA, BNP, CMP #### [facility] [address] [place] [address] Dr. Tasha Dodson MCH (RBC) [Entitic mass] 34.1 pg Critically high 26.7-3 4.0 [facility] Comment on above: Performed By: #### C MADM, LIPA, BNP, CMP #### [facility] [address] [place] [address] Dr. Tasha Dodson MCHC (RBC) [Mass/Vol] 37.0 g/dL Critically high 29.9-35.2 [facility] Comment on above: Performed By: #### C MADM, LIPA, BNP, CMP #### [facility] [address] [place] [address] Dr. Tasha Ddoson MCV (RBC) [Entitic vol] 92.1 fL Normal 81.0-99.0 [facility] Comment on above: Performed By: #### C MADM, LIPA, BNP, CMP #### [facility] [address] [place] [address] Dr. Tasha Dodson MONO # 0.8 103/ul Normal 0.3-0.8 [facility] Comment on above: Performed By: #### C MADM, LIPA, BNP, CMP #### [facility] [address] [address] [address] Tasha Dodson Monocytes/100 WBC (Bld) 8.2 % Normal 1.7-12.0 [facility] Comment on above: Performed By: #### C MADM, LIPA, BNP, CMP #### [facility] [address] [address] [address] Tasha Dodson NEUT # 5.9 103/ul Normal 1.4-6.5 [facility] Comment on above: Performed By: #### C MADM, LIPA, BNP, CMP #### [facility] [address] [address] [address] Tasha Dodson Neutrophils/100 WBC (Bld) 59.7 % Normal 43.0-75.0 [facility] Comment on above: Performed By: #### C MADM, LIPA, BNP, CMP #### [facility] [address] [place] [address] Dr. Tasha Dodson Platelet mean volume (Bld) [Entitic vol] 8.9 fL Critically low 9.5-13.5 [facility] Comment on above: Performed By: #### C MADM, LIPA, BNP, CMP #### [facility] [address] [place] [address] Dr. Tasha Dodson PLT 370 103/ul Normal 150-450 [facility] Comment on above: Performed By: #### C MADM, LIPA, BNP, CMP #### [facility] [address] [place] [address] Dr. Tasha Dodson RBC 3.67 106/ul Critically low 4.20-5.40 [facility] Comment on above: Performed By: #### C MADM, LIPA, BNP, CMP #### [facility] [address] [place] [address] Dr. Tasha Dodson WBC 9.9 103/ul Normal 4.0-11.0 [facility] Comment on above: Performed By: #### C MADM, LIPA, BNP, CMP #### [facility] [address] [place] [address] Dr. Tasha Dodson FREE T4on 11-09-2021 Free T4 [Mass/Vol] 1.48 ng/dL Critically high 0.76-1.46 [facility] Comment on above: Performed By: #### F T4 #### [facility] [address] [place] [address] Dr. Tasha Dodson PROF CHEM 8 (BAS METB)on Anion gap [Moles/Vol] 11.1 mmol/L Normal [facility] Comment on above: Performed By: #### T SH, BMP #### [facility] [address] [place] [address] Dr. Tasha Dodson Calcium [Mass/Vol] 9.3 mg/dL Normal 8.5-10.1 [facility] Comment on above: Performed By: #### T SH, BMP #### [facility] [address] [place] [address] Dr. Tasha Dodson Chloride [Moles/Vol] 92 mmol/L Critically low 98-107 [facility] Comment on above: Performed By: #### T SH, BMP #### [facility] [address] [place] [address] Dr. Tasha Dodson CO2 [Moles/Vol] 29.2 mmol/L Normal 21.0-32.0 [facility] Comment on above: Performed By: #### T SH, BMP #### [facility] [address] [place] [address] Dr. Tasha Dodson Creatinine [Mass/Vol] 0.68 mg/dL Normal 0.55-1.02 [facility] Comment on above: Performed By: #### T SH, BMP #### [facility] [address] [place] [address] Dr. Tasha Dodson EGFR-AF CUBAN >60 Normal >=60 [facility] [place] Comment on above: Performed By: #### T SH, BMP #### [facility] [address] [place] [address] Dr. Tasha Dodson EGFR-NON AF CUBAN >60 Normal >=60 [facility] Comment on above: Performed By: #### T SH, BMP #### [facility] [address] [place] [address] Dr. Tasha Dodson Glucose [Mass/Vol] 109 mg/dL Critically high 74-106 [facility] Comment on above: Performed By: #### T SH, BMP #### [facility] [address] [place] [address] Dr. Tasha Dodson Potassium [Moles/Vol] 3.3 mmol/L Critically low 3.5-5.1 [facility] Comment on above: Performed By: #### T SH, BMP #### [facility] [address] [place] [address] Dr. Tasha Dodson Sodium [Moles/Vol] 129 mmol/L Critically low 136-145 [facility] Comment on above: Performed By: #### T SH, BMP #### [facility] [address] [place] [address] Dr. Tasha Dodson Urea nitrogen [Mass/Vol] 9.0 mg/dL Normal 7.0-18.0 [facility] Comment on above: Performed By: #### T JESI, BMP #### [facility] [address] [place] [address] Dr. Tasha Dodson Urea nitrogen/Creatinine [Mass ratio] 13.2 mg/mg Normal [facility] Comment on above: Performed By: #### T SH, BMP #### [facility] [address] [place] [address] Dr. Tasha Dodson TSHon 11-09-2021 TSH 1.193 uIU/mL Normal 0.358-3.740 [facility] Comment on above: Performed By: #### T SH, BMP #### [facility] [address] [place] [address] Dr. Tasha Dodson LIPID PROFILEon 08-06-2021 CHOL-HDL RATIO NORM SEE BELOW Normal [facility] Comment on above: Result Comment: 3.3 - 4.4 LOW RISK 4.4 - 7.1 AVERAGE RISK 7.1 - 11.0 MODERATE RISK >11.0 HIGH RISK Performed By: #### C MADM, LIPA, BNP, CMP #### [facility] [address] [place] [address] Dr. Tasha Dodson Cholesterol [Mass/Vol] 198 mg/dL Normal <=200 [facility] Comment on above: Performed By: #### C MADM, LIPA, BNP, CMP #### [facility] [address] [address] [address] Tasha Dodson Cholesterol in HDL [Mass/Vol] 77 mg/dL Critically high 40-60 [facility] Comment on above: Performed By: #### C MADM, LIPA, BNP, CMP #### [facility] [address] [address] [address] Tasha Dodson Cholesterol in LDL [Mass/Vol] 106.0 mg/dL Normal [facility] Comment on above: Performed By: #### C MADM, LIPA, BNP, CMP #### [facility] [address] [address] [address] Tasha Dodson Cholesterol.total/Choles terol in HDL [Mass ratio] 2.6 {ratio} Normal [facility] Comment on above: Performed By: #### C MADM, LIPA, BNP, CMP #### [facility] [address] [address] [address] Tasha Dodson HDL NORMAL > or = 60 mg/dl - LOW CARDIOVASCULAR RISK <40 mg/dl - HIGH CARDIOVASCULAR RISK Normal [facility] Comment on above: Performed By: #### C MADM, LIPA, BNP, CMP #### [facility] [address] [address] [address] Tasha Dodson LDL CALC NORMAL SEE BELOW Normal [facility] Comment on above: Result Comment: <100 mg/dl OPTIMAL 100 - 129 mg/dl NEAR OR ABOVE OPTIMAL 130 - 159 mg/dl BORDERLINE HIGH 160 - 189 mg/dl HIGH >190 mg/dl VERY HIGH Performed By: #### C MADM, LIPA, BNP, CMP #### [facility] [address] [address] [address] Tasha Dodson Triglyceride [Mass/Vol] 75 mg/dL Normal <=[address] [facility] Comment on above: Performed By: #### C MADM, LIPA, BNP, CMP #### [facility] [address] [address] [address] Tasha Dodson VLDL CALC 15.0 mg/dL Normal [facility] Comment on above: Performed By: #### C MADM, LIPA, BNP, CMP #### [facility] [address] [address] [address] Tasha Dodson LIVER PROFILEon 08-06-2021 Albumin [Mass/Vol] 3.7 g/dL Normal 3.4-5.0 [facility] Comment on above: Performed By: #### C MADM, LIPA, BNP, CMP #### [facility] [address] [address] [address] Tasha Dodson Albumin/Globulin [Mass ratio] 1.0 {ratio} Normal [facility] Comment on above: Performed By: #### C MADM, LIPA, BNP, CMP #### [facility] [address] [address] [address] Tasha Dodson ALP [Catalytic activity/Vol] 62 U/L Normal 46-116 [facility] Comment on above: Performed By: #### C MADM, LIPA, BNP, CMP #### [facility] [address] [address] [address] Tasha Dodson ALT [Catalytic activity/Vol] 26 U/L Normal 14-59 [facility] Comment on above: Performed By: #### C MADM, LIPA, BNP, CMP #### [facility] [address] [address] [address] Tasha Dodson AST [Catalytic activity/Vol] 24 U/L Normal 15-37 [facility] Comment on above: Performed By: #### C MADM, LIPA, BNP, CMP #### [facility] [address] [address] [address] Tasha Dodson BILI, CONJUGATED 0.1 mg/dL Normal 0.0-0.2 [facility] Comment on above: Performed By: #### C MADM, LIPA, BNP, CMP #### [facility] [address] [address] [address] Tasha Dodson Bilirubin [Mass/Vol] 0.5 mg/dL Normal 0.2-1.0 [facility] Comment on above: Performed By: #### C MADM, LIPA, BNP, CMP #### [facility] [address] [place] [address] Dr. Tasha Dodson Globulin (S) [Mass/Vol] 3.8 g/dL Normal T [facility] Comment on above: Performed By: #### C MADM, LIPA, BNP, CMP #### [facility] [address] [place] [address] Dr. Tasha Dodson Protein [Mass/Vol] 7.5 g/dL Normal 6.4-8.2 [facility] Comment on above: Performed By: #### C MADM, LIPA, BNP, CMP #### [facility] [address] [place] [address] Dr. Tasha Dodson FREE T4on 07-28-2021 Free T4 [Mass/Vol] 1.32 ng/dL Normal 0.76-1.46 [facility] Comment on above: Performed By: #### T SH, BMP #### [facility] [address] [place] [address] Dr. Tasha Dodson PROF CHEM 8 (BAS METB)on Anion gap [Moles/Vol] 11.6 mmol/L Normal [facility] Comment on above: Performed By: #### B MP, TSH #### [facility] [address] [place] [address] Dr. Tasha Dodson Calcium [Mass/Vol] 9.4 mg/dL Normal 8.5-10.1 [facility] Comment on above: Performed By: #### B MP, TSH #### [facility] [address] [place] [address] Dr. Tasha Dodson Chloride [Moles/Vol] 93 mmol/L Critically low 98-107 [facility] Comment on above: Performed By: #### B MP, TSH #### [facility] [address] [place] [address] Dr. Tasha Dodson CO2 [Moles/Vol] 29.8 mmol/L Normal 21.0-32.0 [facility] Comment on above: Performed By: #### B MP, TSH #### [facility] [address] [address] [address] Tasha Dodson Creatinine [Mass/Vol] 0.74 mg/dL Normal 0.55-1.02 [facility] Comment on above: Performed By: #### B MP, TSH #### [facility] [address] [address] [address] Tasha Dodson EGFR-AF CUBAN >60 Normal >=60 [facility] Comment on above: Performed By: #### B MP, TSH #### [facility] [address] [address] [address] Tasha Dodson EGFR-NON AF CUBAN >60 Normal >=60 [facility] Comment on above: Performed By: #### B MP, TSH #### [facility] [address] [address] [address] Tasha Dodson Glucose [Mass/Vol] 114 mg/dL Critically high 74-[address] [facility] Comment on above: Performed By: #### B MP, TSH #### [facility] [address] [address] [address] Tasha Dodson Potassium [Moles/Vol] 3.4 mmol/L Critically low 3.5-5.1 [facility] Comment on above: Performed By: #### B MP, TSH #### [facility] [address] [address] [address] Tasha Dodson Sodium [Moles/Vol] 131 mmol/L Critically low 136-145 [facility] Comment on above: Performed By: #### B MP, TSH #### [facility] [address] [address] [address] Tasha Dodson Urea nitrogen [Mass/Vol] 12.0 mg/dL Normal 7.0-18.0 [facility] Comment on above: Performed By: #### B MP, TSH #### [facility] [address] [address] [address] Tasha Dodson Urea nitrogen/Creatinine [Mass ratio] 16.2 mg/mg Normal [facility] Comment on above: Performed By: #### B MP, TSH #### [facility] [address] [address] [address] Tasha Dodson TSHon 07-28-2021 TSH 1.790 uIU/mL Normal 0.358-3.740 [facility] Comment on above: Performed By: #### B MP, TSH #### [facility] [address] [address] [address] Tasha Dodson TSH RANGE SEE BELOW Normal [facility] Comment on above: Result Comment: <0.3 4 UIU/ml HYPERTHYROID 0.34-5.60 UIU/ml EUTHYROID >5.60 UIU/ml HYPOTHYROID Performed By: #### B MP, TSH #### [facility] [address] [address] [address] Tasha Dodson CBC Auto Differentialon 10-0 Basophils (Bld) [#/Vol] 0.1 10*3/uL 0 - 0.2 K/u L [place] Basophils/100 WBC (Bld) 1.1 % [place] Eosinophils (Bld) [#/Vol] 0.2 10*3/uL 0 - 0.7 K/uL [place] Eosinophils/100 WBC (Bld) 1.4 % [place] Erythrocyte distribution width (RBC) [Ratio] 14.4 % 11.5 - 14.5 % [place] Hematocrit (Bld) [Volume fraction] 33.6 % Low 37 - 47 % [place] Hemoglobin (Bld) [Mass/Vol] 11.1 g/dL Low 12 - 16 g/dL [place] Interpretation and review of laboratory results Abnormal [place] Lymphocytes (Bld) [#/Vol] 2.3 10*3/uL 1 - 4.8 K/uL [place] Lymphocytes/100 WBC (Bld) 18.0 % [place] MCH (RBC) [Entitic mass] 29.5 pg 27 - 31.3 p g [place] MCHC (RBC) [Mass/Vol] 33.0 % 33 - 37 % [place] MCV (RBC) [Entitic vol] 89.5 fL 82 - 100 fL [place] Monocytes (Bld) [#/Vol] 0.9 10*3/uL High 0.2 - 0.8 K/uL [place] Monocytes/100 WBC (Bld) 6.9 % [place] Neutrophils Absolute 9.1 K/uL High 1.4 - 6 .5 K/uL [place] Neutrophils/100 WBC (Bld) 72.6 % [place] Platelets (Bld) [#/Vol] 548 10*3/uL High 130 - 400 K/uL [place] RBC (Bld) [#/Vol] 3.75 10*6/uL [place] WBC (Bld) [#/Vol] 12.5 10*3/uL High 4.8 - 10.8 K/uL [place] CBC With Platelet and Differ entialon 11-20-2018 Basophils (Bld) [#/Vol] 0.1 10*3/uL Normal 0.0-0.2 [facility] Comment on above: Performed By: #### E SR #### [facility] [address] [facility] [address] Basophils/100 WBC (Bld) 1.1 % Normal [facility] [place] Comment on above: Performed By: #### E SR #### [facility] [address] [facility] [address] Eosinophils (Bld) [#/Vol] 0.2 10*3/uL Normal 0.0-0.7 [facility] Comment on above: Performed By: #### E SR #### [facility] [address] [facility] [address] Eosinophils/100 WBC (Bld) 1.4 % Normal [facility] Comment on above: Performed By: #### E SR #### [facility] [address] [facility] [address] Erythrocyte distribution width (RBC) [Ratio] 14.4 % Normal 11.5-14.5 [facility] Comment on above: Performed By: #### E SR #### [facility] [address] [place] [address] Hematocrit (Bld) [Volume fraction] 33.6 % Low 37.0-47.0 [facility] Comment on above: Performed By: #### E SR #### [facility] [address] [place] [address] Hemoglobin (Bld) [Mass/Vol] 11.1 g/dL Low 12.0-16.0 [facility] Comment on above: Performed By: #### E SR #### [facility] [address] [place] [address] Lymphocytes (Bld) [#/Vol] 2.3 10*3/uL Normal 1.0-4.8 [facility] Comment on above: Performed By: #### E SR #### [facility] [address] [place] [place] [address] Lymphocytes/100 WBC (Bld) 18.0 % Normal [facility] Comment on above: Performed By: #### E SR #### [facility] [address] [place] [address] MCH (RBC) [Entitic mass] 29.5 pg Normal 27.0-31.3 [facility] Comment on above: Performed By: #### E SR #### [facility] [address] [place] [address] MCHC (RBC) [Mass/Vol] 33.0 % Normal 33.0-37.0 [facility] Comment on above: Performed By: #### E SR #### [facility] [address] [place] [address] MCV (RBC) [Entitic vol] 89.5 fL Normal 82.0-100.0 [facility] Comment on above: Performed By: #### E SR #### [facility] [address] [place] [address] Monocytes (Bld) [#/Vol] 0.9 10*3/uL Critically high 0.2-0. 8 [facility] Comment on above: Performed By: #### E SR #### [facility] [address] [place] [address] Monocytes/100 WBC (Bld) 6.9 % Normal [facility] Comment on above: Performed By: #### E SR #### [facility] [address] [address] Neutrophils (Bld) [#/Vol] 9.1 10*3/uL Critically high 1.4-6.5 [facility] Comment on above: Performed By: #### E SR #### [facility] [address] [place] [address] Neutrophils/100 WBC (Bld) 72.6 % Normal [facility] Comment on above: Performed By: #### E SR #### [facility] [address] [place] [address] Platelets (Bld) [#/Vol] 548 10*3/uL Critically high 130-40 0 [facility] Comment on above: Performed By: #### E SR #### [facility] [address] [place] [address] RBC (Bld) [#/Vol] 3.75 10*6/uL Low 4.20-5.40 [facility] Comment on above: Performed By: #### E SR #### [facility] [address] [place] [place] [address] WBC (Bld) [#/Vol] 12.5 10*3/uL Critically high 4.8-10.8 [facility] Comment on above: Performed By: #### E SR #### [facility] [address] [place] [address] EKG 12 Leadon 11-20-2018 Atrial Rate 79 BPM [facility], [place] P [place] 58 degrees [facility], [place] P-R Interval 176 ms [place] Q-T Interval 404 ms [place] QRS Duration 130 ms [place] QTc Calculation ([place]azett) 463 ms [place] R [place] -11 degrees [facility], [place] T [place] 5 degrees [place] Urea nitrogen [Mass/Vol] Normal sinus rh ythm Right bundle branch block Moderate voltage criteria for LVH, may be normal variant Abnormal ECG When compared with ECG of 13-NOV-2018 08:33, No significant change was found Confirmed by Анна Zamarripa ([id number]) on 11/20/2018 9:39:56 AM [place] Ventricular Rate 79 BPM [place], [place] Joseph, Chpo Incoming Results From [place] - 11/20/2018 9:40 AM EDT Normal sinus rhythm Right bundle branch block Moderate voltage criteria for LVH, may be normal variant Abnormal ECG When compared with ECG of 13-NOV-2018 08:33, No significant change was found Confirmed by Анна Zamarripa ([id number]) on 11/20/2018 9:39:56 AM [place] CBC Auto Differentialon 10-23 Neutrophils Absolute 6.1 K/uL 1.4 - 6 .5 K/uL [place] CBC With Platelet and Differ entialon 11-19-2018 Basophils (Bld) [#/Vol] 0.2 10*3/uL Normal 0.0-0.2 [place] Comment on above: Performed By: #### C MP #### [facility] [address] [place] [address] Basophils/100 WBC (Bld) 1.5 % Normal [place] Comment on above: Performed By: #### C MP #### [facility] [address] [place] [address] Eosinophils (Bld) [#/Vol] 0.3 10*3/uL Normal 0.0-0.7 [place] Comment on above: Performed By: #### C MP #### [facility] [address] [place] [address] Eosinophils/100 WBC (Bld) 2.5 % Normal [place] Comment on above: Performed By: #### C MP #### [facility] [address] [place] [address] Erythrocyte distribution width (RBC) [Ratio] 14.1 % Normal 11.5-14.5 [place] Comment on above: Performed By: #### C MP #### [facility] [address] [place] [address] Hematocrit (Bld) [Volume fraction] 29.3 % Low 37.0-47.0 [place] Comment on above: Performed By: #### C MP #### [facility] [address] [place] [address] Hemoglobin (Bld) [Mass/Vol] 10.1 g/dL Low 12.0-16.0 [place] Comment on above: Performed By: #### C MP #### [facility] [address] [place] [address] Lymphocytes (Bld) [#/Vol] 2.8 10*3/uL Normal 1.0-4.8 [place] Comment on above: Performed By: #### C MP #### [facility] [address] [place] [address] Lymphocytes/100 WBC (Bld) 27.3 % Normal [place] Comment on above: Performed By: #### C MP #### [facility] [address] [place] [address] MCH (RBC) [Entitic mass] 30.7 pg Normal 27.0-31.3 [place] Comment on above: Performed By: #### C MP #### [facility] [address] [place] [address] MCHC (RBC) [Mass/Vol] 34.6 % Normal 33.0-37.0 [place] Comment on above: Performed By: #### C MP #### [facility] [address] [place] [address] MCV (RBC) [Entitic vol] 88.9 fL Normal 82.0-100.0 [place] Comment on above: Performed By: #### C MP #### [facility] [address] [place] [address] Monocytes (Bld) [#/Vol] 0.9 10*3/uL Critically high 0.2-0. 8 [place] Comment on above: Performed By: #### C MP #### [facility] [address] [place] [address] Monocytes/100 WBC (Bld) 9.2 % Normal [place] Comment on above: Performed By: #### C MP #### [facility] [address] [place] [address] Neutrophils (Bld) [#/Vol] 6.1 10*3/uL Normal 1.4-6.5 [facility] Comment on above: Performed By: #### C MP #### [facility] [address] [place] [address] Neutrophils/100 WBC (Bld) 59.5 % Normal [place] Comment on above: Performed By: #### C MP #### [facility] [address] [place] [address] Platelets (Bld) [#/Vol] 396 10*3/uL Normal 130-400 [place] Comment on above: Performed By: #### C MP #### [facility] [address] [place] [address] RBC (Bld) [#/Vol] 3.30 10*6/uL Low 4.20-5.40 [place] Comment on above: Performed By: #### C MP #### [facility] [address] [place] [address] WBC (Bld) [#/Vol] 10.2 10*3/uL Normal 4.8-10.8 [place] Comment on above: Performed By: #### C MP #### [facility] [address] [place] [address] High Sensitivity CRPon 11-19 High Sensitivity CRP 89.2 mg/L Critically high 0.0-5.0 [facility] Comment on above: Performed By: #### E SR #### [facility] [address] [place] [address] High sensitivity CRPon 11-19 CRP High Sensitivity 89.2 mg/L High 0 - 5 mg/L [place] Interpretation and review of laboratory results Abnormal [place] Otheron 11-19-2018 Interpretation and review of laboratory results Abnormal [place] Sedimentation Rateon 019 Sedimentation Rate 55 mm Critically high 0-30 [facility] Comment on above: Performed By: #### C MP #### [facility] [address] [place] [address] Sed Rate 55 mm High 0 - 30 mm [place] Basic Metabolic Panelon 10-22 Anion gap [Moles/Vol] 14 mmol/L Normal 9-15 [facility] Comment on above: Performed By: #### C MP #### [facility] [address] [place] [address] Calcium [Mass/Vol] 8.8 mg/dL Normal 8.5-9.9 [facility] Comment on above: Performed By: #### C MP #### [facility] [address] [place] [address] Chloride [Moles/Vol] 95 mmol/L Normal 95-107 [facility] Comment on above: Performed By: #### C MP #### [facility] [address] [place] [address] CO2 [Moles/Vol] 26 mmol/L Normal 20-31 [facility] Comment on above: Performed By: #### C MP #### [facility] [address] [place] [address] Creatinine [Mass/Vol] 0.58 mg/dL Normal 0.50-0.90 [facility] Comment on above: Performed By: #### C MP #### [facility] [address] [place] [address] GFR/1.73 sq M predicted among blacks MDRD (S/P/Bld) [Vol rate/Area] mL/min/{1.73_m2} Normal >60 [facility] Comment on above: Result Comment: >60 mL/min/1.73m2 EGFR, calc. for ages 18 and older using the MDRD formula (not corrected for weight), is valid for stable renal function. Performed By: #### C MP #### [facility] [address] [place] [address] GFR/1.73 sq M.predicted MDRD (S/P/Bld) [Vol rate/Area] mL/min/{1.73_m2} Normal >60 [facility] Comment on above: Result Comment: >60 mL/min/1.73m2 EGFR, calc. for ages 18 and older using the MDRD formula (not corrected for weight), is valid for stable renal function. Performed By: #### C MP #### [facility] [address] [place] [address] Glucose [Mass/Vol] 156 mg/dL Critically high 70-99 [facility] [place] Comment on above: Performed By: #### C MP #### [facility] [address] [place] [address] Potassium [Moles/Vol] 3.3 mmol/L Low 3.4-4.9 [facility] Comment on above: Performed By: #### C MP #### [facility] [address] [place] [address] Sodium [Moles/Vol] 135 mmol/L Normal 135-144 [facility] Comment on above: Performed By: #### C MP #### [facility] [address] [place] [address] Urea nitrogen [Mass/Vol] 11 mg/dL Normal 8-23 [facility] Comment on above: Performed By: #### C MP #### [facility] [address] [place] [address] Anion gap [Moles/Vol] 14 mmol/L [place] Calcium [Mass/Vol] 8.8 mg/dL 8.5 - 9.9 mg/dL [place] Chloride [Moles/Vol] 95 mmol/L [place] CO2 [Moles/Vol] 26 mmol/L [place] Creatinine [Mass/Vol] 0.58 mg/dL 0.5 - 0.9 mg/dL [place] GFR >60.0 >60 [place] Comment on above: >60 mL/min/1.73m2 EG FR, calc. for ages 18 and older using the MDRD formula (not corrected for weight), is valid for stable renal function. GFR Non- >60.0 >60 [place] Comment on above: >60 mL/min/1.73m2 EG FR, calc. for ages 18 and older using the MDRD formula (not corrected for weight), is valid for stable renal function. Glucose [Mass/Vol] 156 mg/dL High 70 - 99 mg/dL [place] Interpretation and review of laboratory results Abnormal [place] Potassium [Moles/Vol] 3.3 mmol/L Low [place] Sodium [Moles/Vol] 135 mmol/L [place] Urea nitrogen [Mass/Vol] 11 mg/dL 8 - 23 mg/d L [place] Magnesiumon 11-18-2018 Magnesium [Mass/Vol] 1.8 mg/dL Normal 1.7-2.4 [facility] Comment on above: Performed By: #### C MP #### [facility] [address] [facility] [address] Magnesium [Mass/Vol] 1.8 mg/dL 1.7 - 2 .4 mg/dL [place] TSH w/out Reflexon 9 TSH Qn 0.880 uIU/mL Normal 0.440-3.86 [facility] Comment on above: Performed By: #### C MP #### [facility] [address] [place] [address] TSH without Reflexon 019 TSH Qn 0.880 m[IU]/L [place] CBC Auto Differentialon 10-22 Basophils (Bld) [#/Vol] 0.1 10*3/uL 0 - 0.2 K/u L [place] Basophils/100 WBC (Bld) 0.7 % [place] Eosinophils (Bld) [#/Vol] 0.4 10*3/uL 0 - 0.7 K/uL [place] Eosinophils/100 WBC (Bld) 2.8 % [place] Erythrocyte distribution width (RBC) [Ratio] 14.2 % 11.5 - 14.5 % [place] Hematocrit (Bld) [Volume fraction] 32.3 % Low 37 - 47 % [place] Hemoglobin (Bld) [Mass/Vol] 10.8 g/dL Low 12 - 16 g/dL [place] Interpretation and review of laboratory results Abnormal [place] Lymphocytes (Bld) [#/Vol] 2.6 10*3/uL 1 - 4.8 K/uL [place] Lymphocytes/100 WBC (Bld) 16.8 % [place] MCH (RBC) [Entitic mass] 30.3 pg 27 - 31.3 p g [place] MCHC (RBC) [Mass/Vol] 33.4 % 33 - 37 % [place] MCV (RBC) [Entitic vol] 90.5 fL 82 - 100 fL [place] Monocytes (Bld) [#/Vol] 1.3 10*3/uL High 0.2 - 0.8 K/uL [place] Monocytes/100 WBC (Bld) 8.3 % [place] Neutrophils Absolute 11.1 K/uL High 1.4 - 6 .5 K/uL [place] Neutrophils/100 WBC (Bld) 71.4 % [place] Platelets (Bld) [#/Vol] 375 10*3/uL 130 - 400 K/uL [place] RBC (Bld) [#/Vol] 3.57 10*6/uL Low [place] WBC (Bld) [#/Vol] 15.5 10*3/uL High 4.8 - 10.8 K/uL [place] CBC With Platelet and Differ entialon 11-17-2018 Basophils (Bld) [#/Vol] 0.1 10*3/uL Normal 0.0-0.2 [facility] Comment on above: Performed By: #### C MP #### [facility] [address] [place] [address] Basophils/100 WBC (Bld) 0.7 % Normal [facility] [place] Comment on above: Performed By: #### C MP #### [facility] [address] [place] [address] Eosinophils (Bld) [#/Vol] 0.4 10*3/uL Normal 0.0-0.7 [facility] Comment on above: Performed By: #### C MP #### [facility] [address] [place] [address] Eosinophils/100 WBC (Bld) 2.8 % Normal [facility] Comment on above: Performed By: #### C MP #### [facility] [address] [place] [address] Erythrocyte distribution width (RBC) [Ratio] 14.2 % Normal 11.5-14.5 [facility] Comment on above: Performed By: #### C MP #### [facility] [address] [place] [address] Hematocrit (Bld) [Volume fraction] 32.3 % Low 37.0-47.0 [facility] Comment on above: Performed By: #### C MP #### [facility] [address] [place] [address] Hemoglobin (Bld) [Mass/Vol] 10.8 g/dL Low 12.0-16.0 [facility] Comment on above: Performed By: #### C MP #### [facility] [address] [place] [address] Lymphocytes (Bld) [#/Vol] 2.6 10*3/uL Normal 1.0-4.8 [facility] Comment on above: Performed By: #### C MP #### [facility] [address] [place] [address] Lymphocytes/100 WBC (Bld) 16.8 % Normal [facility] Comment on above: Performed By: #### C MP #### [facility] [address] [place] [address] MCH (RBC) [Entitic mass] 30.3 pg Normal 27.0-31.3 [facility] Comment on above: Performed By: #### C MP #### [facility] [address] [place] [address] MCHC (RBC) [Mass/Vol] 33.4 % Normal 33.0-37.0 [facility] Comment on above: Performed By: #### C MP #### [facility] [address] [place] [address] MCV (RBC) [Entitic vol] 90.5 fL Normal 82.0-100.0 [facility] Comment on above: Performed By: #### C MP #### [facility] [address] [place] [address] Monocytes (Bld) [#/Vol] 1.3 10*3/uL Critically high 0.2-0. 8 [facility] Comment on above: Performed By: #### C MP #### [facility] [address] [place] [address] Monocytes/100 WBC (Bld) 8.3 % Normal [facility] Comment on above: Performed By: #### C MP #### [facility] [address] [place] [address] Neutrophils (Bld) [#/Vol] 11.1 10*3/uL Critically high 1.4-6.5 [facility] Comment on above: Performed By: #### C MP #### [facility] [address] [place] [address] Neutrophils/100 WBC (Bld) 71.4 % Normal [facility] Comment on above: Performed By: #### C MP #### [facility] [address] [place] [address] Platelets (Bld) [#/Vol] 375 10*3/uL Normal 130-400 [facility] Comment on above: Performed By: #### C MP #### [facility] [address] [place] [address] RBC (Bld) [#/Vol] 3.57 10*6/uL Low 4.20-5.40 [facility] Comment on above: Performed By: #### C MP #### [facility] [address] [place] [address] WBC (Bld) [#/Vol] 15.5 10*3/uL Critically high 4.8-10.8 [facility] Comment on above: Performed By: #### C MP #### [facility] [address] [place] [address] High Sensitivity CRPon 11-17 High Sensitivity CRP 230.1 mg/L Critically high 0.0-5.0 [facility] Comment on above: Performed By: #### C MP #### [facility] [address] [place] [address] High sensitivity CRPon 11-17 CRP High Sensitivity 230.1 mg/L High 0 - 5 mg/L [facility], [place] Interpretation and review of laboratory results Abnormal [facility], [place] Sedimentation Rateon 019 Sedimentation Rate 50 mm Critically high 0-30 [facility] Comment on above: Performed By: #### C MP #### [facility] [address] [facility] [id number] [phone] Interpretation and review of laboratory results Abnormal [place] Sed Rate 50 mm High 0 - 30 mm [place] DUP LOWER EXTREMITIES VAUGHN ATERAL VENOUSon 11-17-2018 NO DVT IDENTIFIED IN EITHER LOWER EXTREMITY. [place] Joseph, Chpo Incoming Radiant Results From [facility] - 11/17/2018 8:05 AM EDT US DUP [...] NO DVT IDENTIFIED IN EITHER LOWER EXTREMITY. [place] DUP LOWER EXTREMITIES BILATERAL VENOUS : 11/16/2018 CLINICAL HISTORY: LEG SWELLING, PAIN, DVT SUSPECTED . COMPARISON: None available. Grayscale, compression, color and waveform Doppler analysis of both lower extremity deep venous systems was performed with augmentation. FINDINGS: There is no deep venous thrombosis, abnormal masses, fluid collections or other findings of concern identified within either lower extremity. [place] Urine Cultureon 11-17-2018 Bacteria identified Cx Nom (U) No growth 24 hours [place] ORDERED BY: ADDY COKER SOURCE: Urine Clean Catch COLLECTED: 11/15/18 19:05 ANTIBIOTICS AT DI.: RECEIVED : 11/15/18 19:05 [place] CBC With Platelet and Differ entialon 11-16-2018 Neutrophils (Bld) [#/Vol] 15.5 10*3/uL Critically high 1.4-6.5 [facility] Comment on above: Performed By: #### P TT #### [facility] [address] [facility] [address] Basophils (Bld) [#/Vol] 0.2 10*3/uL Normal 0.0-0.2 [place] Comment on above: Performed By: #### P TT #### [facility] [address] [place] [address] Basophils/100 WBC (Bld) 0.9 % Normal [place] Comment on above: Performed By: #### P TT #### [facility] [address] [place] [address] Eosinophils (Bld) [#/Vol] 0.1 10*3/uL Normal 0.0-0.7 [place] Comment on above: Performed By: #### P TT #### [facility] [address] [place] [address] Eosinophils/100 WBC (Bld) 0.8 % Normal [place] Comment on above: Performed By: #### P TT #### [facility] [address] [facility] [address] Erythrocyte distribution width (RBC) [Ratio] 14.4 % Normal 11.5-14.5 [place] Comment on above: Performed By: #### P TT #### [facility] [address] [facility] [address] Hematocrit (Bld) [Volume fraction] 33.4 % Low 37.0-47.0 [place] Comment on above: Performed By: #### P TT #### [facility] [address] [place] [address] Hemoglobin (Bld) [Mass/Vol] 11.0 g/dL Low 12.0-16.0 [place] Comment on above: Performed By: #### P TT #### [facility] [address] [place] [address] Lymphocytes (Bld) [#/Vol] 1.5 10*3/uL Normal 1.0-4.8 [place] Comment on above: Performed By: #### P TT #### [facility] [address] [facility] [address] Lymphocytes/100 WBC (Bld) 7.9 % Normal [place] Comment on above: Performed By: #### P TT #### [facility] [address] [facility] [address] MCH (RBC) [Entitic mass] 29.4 pg Normal 27.0-31.3 [place] Comment on above: Performed By: #### P TT #### [facility] [address] [facility] [place] [address] MCHC (RBC) [Mass/Vol] 32.9 % Low 33.0-37.0 [place] Comment on above: Performed By: #### P TT #### [facility] [address] [place] [place] [address] MCV (RBC) [Entitic vol] 89.4 fL Normal 82.0-100.0 [place] Comment on above: Performed By: #### P TT #### [facility] [address] [facility] [place] [address] Monocytes (Bld) [#/Vol] 1.3 10*3/uL Critically high 0.2-0. 8 [place] Comment on above: Performed By: #### P TT #### [facility] [address] [facility] [place] [address] Monocytes/100 WBC (Bld) 7.1 % Normal [place] Comment on above: Performed By: #### P TT #### [facility] [address] [facility] [place] [address] Neutrophils/100 WBC (Bld) 83.3 % Normal [place] Comment on above: Performed By: #### P TT #### [facility] [address] [place] [address] Platelets (Bld) [#/Vol] 304 10*3/uL Normal 130-400 [place] Comment on above: Performed By: #### P TT #### [facility] [address] [place] [address] RBC (Bld) [#/Vol] 3.74 10*6/uL Low 4.20-5.40 [place] Comment on above: Performed By: #### P TT #### [facility] [address] [facility] [address] WBC (Bld) [#/Vol] 18.6 10*3/uL Critically high 4.8-10.8 [place] Comment on above: Performed By: #### P TT #### [facility] [address] [facility] [address] CBC auto differentialon 10-22 Interpretation and review of laboratory results Abnormal [place] Neutrophils Absolute 15.5 K/uL High 1.4 - 6 .5 K/uL [place] ECHO Complete 2D W Doppler W Coloron 11-16-2018 Transthoracic Echocardiography Report (TTE) Demographics Patient Name MERCY GANDHI Gender Female Patient Number [id number] Race Unknown Ethnicity Visit Number [id number] Room Number R238 Corporate ID Date of Study 11/16/2018 Referring Physician Niki Vazquez DO Number Date of 1935 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 Suggestive of diastolic dysfunction. Signature ---- ---- Findings Left Ventricle Normal left ventricle structure [...] Gradient: 4.03 mmHg Estimated PASP: 40.86 mmHg [place] ED Velocity: 1.27 m/s LVOT Peak Velocity: [...] Root: 2.35 cm LVOT Diameter: 1.65 cm [facility] [place], [place] Joseph, Chpo Incoming Cardiovascular Results From [facility] - 11/16/2018 5:05 PM EDT Transthoracic Echocardiography Report (TTE) Demographics Patient Name MERCY GANDHI Gender Female Patient Number [id number] Race Unknown Ethnicity Visit Number [id number] Room Number R238 Corporate ID Date of Study 11/16/2018 Referring Physician Niki Vazquez DO Number Date of 1935 Infrastructure Architect Althea Bella [facility] Age 83 year(s) Interpreting [facility] Physician Cardiology Cain Quinonez MD [...] reversal noted. Suggestive of diastolic dysfunction. Signature ---- ---- Findings Left Ventricle Normal left ventricle structure [...] Gradient: 4.03 mmHg Estimated PASP: 40.86 mmHg [place] Velocity: 1.27 m/s LVOT Peak Velocity: [...] Root: 2.35 cm LVOT Diameter: 1.65 cm [place] Microscopic Urinalysison Bacteria, UA Negative /HPF [place] Epi Cells 3-5 /HPF [place] Interpretation and review of laboratory results Abnormal [place] RBC (U) [#/Vol] 3-5 [facility] [place] [place] Renal Epithelial, Urine 0-2 Abnormal /HPF [place] WBC, UA None seen [place] CAROTID ARTERY BILATERALo n 11-16-2018 [...] Damped resistive CCA decreased decreased resistive CCA [place] Joseph, Chpo Incoming Radiant Results From [facility] - 11/16/2018 10:40 AM EDT Patient : [...] Damped resistive [facility] decreased [facility] 1935 Age: 83 years Gender: [...] and noncalcified plaque bilateral carotid arterial systems [place] US DUP LOWER EXTREMITIES VAUGHN ATERAL [...] De Souza MD 11/17/18 Final result Normal [facility] Urine Microscopicon 11-17-19 19 Bacteria LM.HPF (Urine sed) [#/Area] Negative Normal [facility] Comment on above: Performed By: #### P TT #### [facility] [address] [place] [address] Epithelial cells LM Ql (Urine sed) 3-5 Normal [facility] Comment on above: Performed By: #### P TT #### [facility] [address] [place] [address] RBC (U) [#/Vol] 3-5 Abnormal 0-2 [facility] Comment on above: Performed By: #### P TT #### [facility] [address] [place] [address] Urine Renal Epithelial 0-2 Abnormal [facility] Comment on above: Performed By: #### P TT #### [facility] [address] [place] [address] WBC (U) [#/Vol] None seen Normal 0-5 [facility] Comment on above: Performed By: #### P TT #### [facility] [address] [place] [address] XR CHEST PORTABLEon 11-17-19 19 Joseph, Chpo Incoming Radiant Results From [facility] - 11/16/2018 10:21 AM EDT EXAMINATION: XR CHEST PORTABLE CLINICAL HISTORY: fever . History of back surgery. COMPARISONS: None available. FINDINGS: Single AP portable view the chest obtained on November 15, 2018 at 2124 hours. The heart is not enlarged. Mediastinum is not widened. Calcified aorta is not dilated. Lungs are clear. The chest wall is unremarkable. CONCLUSION: NO ACUTE PROCESS [facility], [place] EXAMINATION: XR CHEST PORTABLE CLINICAL HISTORY: fever . History of back surgery. COMPARISONS: None available. FINDINGS: Single AP portable view the chest obtained on November 15, 2018 at 2124 hours. The heart is not enlarged. Mediastinum is not widened. Calcified aorta is not dilated. Lungs are clear. The chest wall is unremarkable. CONCLUSION: NO ACUTE PROCESS [place] CBC Auto Differentialon 10-22 Anisocytosis Ql (Bld) 1+ [place] Bands Relative 4 % Low 5 - 11 % [place] Basophils (Bld) [#/Vol] 0.0 10*3/uL 0 - 0.2 K/u L [place] Basophils/100 WBC (Bld) 0.6 % [place] Eosinophils (Bld) [#/Vol] 0.0 10*3/uL 0 - 0.7 K/uL [place] Eosinophils/100 WBC (Bld) 0.9 % [place] Erythrocyte distribution width (RBC) [Ratio] 14.6 % High 11.5 - 14.5 % [place] Hematocrit (Bld) [Volume fraction] 33.3 % Low 37 - 47 % [place] Hemoglobin (Bld) [Mass/Vol] 10.9 g/dL Low 12 - 16 g/dL [place] Interpretation and review of laboratory results Abnormal [place] Lymphocytes (Bld) [#/Vol] 3.5 10*3/uL 1 - 4.8 K/uL [place] Lymphocytes/100 WBC (Bld) 17.0 % [place] MCH (RBC) [Entitic mass] 29.8 pg 27 - 31.3 p g [place] MCHC (RBC) [Mass/Vol] 32.9 % Low 33 - 37 % [place] MCV (RBC) [Entitic vol] 90.7 fL 82 - 100 fL [place] Microcytes 1+ [place] Monocytes (Bld) [#/Vol] 0.0 10*3/uL Low 0.2 - 0.8 K/uL [place] Monocytes/100 WBC (Bld) 7.7 % [place] Neutrophils Absolute 17.3 K/uL High 1.4 - 6 .5 K/uL [place] Neutrophils/100 WBC (Bld) 79.0 % [place] PLATELET SLIDE REVIEW Normal [place] Platelets (Bld) [#/Vol] 315 10*3/uL 130 - 400 K/uL [place] RBC (Bld) [#/Vol] 3.67 10*6/uL Low [place] WBC (Bld) [#/Vol] 20.8 10*3/uL High 4.8 - 10.8 K/uL [place] CBC With Platelet No Differe ntialon 11-15-2018 Erythrocyte distribution width (RBC) [Ratio] 14.5 % Normal 11.5-14.5 [facility] Comment on above: Performed By: #### P TT #### [facility] [address] [place] [address] Hematocrit (Bld) [Volume fraction] 36.9 % Low 37.0-47.0 [facility] Comment on above: Performed By: #### P TT #### [facility] [address] [place] [address] Hemoglobin (Bld) [Mass/Vol] 11.9 g/dL Low 12.0-16.0 [facility] Comment on above: Performed By: #### P TT #### [facility] [address] [place] [address] MCH (RBC) [Entitic mass] 29.4 pg Normal 27.0-31.3 [facility] Comment on above: Performed By: #### P TT #### [facility] [address] [place] [address] MCHC (RBC) [Mass/Vol] 32.3 % Low 33.0-37.0 [facility] Comment on above: Performed By: #### P TT #### [facility] [address] [place] [address] MCV (RBC) [Entitic vol] 91.1 fL Normal 82.0-100.0 [facility] Comment on above: Performed By: #### P TT #### [facility] [address] [place] [address] Platelets (Bld) [#/Vol] 341 10*3/uL Normal 130-400 [facility] Comment on above: Performed By: #### P TT #### [facility] [address] [place] [address] RBC (Bld) [#/Vol] 4.05 10*6/uL Low 4.20-5.40 [facility] Comment on above: Performed By: #### P TT #### [facility] [address] [place] [address] WBC (Bld) [#/Vol] 19.8 10*3/uL Critically high 4.8-10.8 [facility] Comment on above: Performed By: #### P TT #### [facility] [address] [place] [address] CBC With Platelet and Differ entialon 11-15-2018 Anisocytosis Ql (Bld) 1+ Normal [facility] Comment on above: Performed By: #### P TT #### [facility] [address] [place] [address] Bands 4 % Low 5-11 [facility] Comment on above: Performed By: #### P TT #### [facility] [address] [place] [address] Basophils (Bld) [#/Vol] 0.0 10*3/uL Normal 0.0-0.2 [facility] Comment on above: Performed By: #### P TT #### [facility] [address] [place] [address] Basophils/100 WBC (Bld) 0.6 % Normal [facility] [place] Comment on above: Performed By: #### P TT #### [facility] [address] [place] [address] Eosinophils (Bld) [#/Vol] 0.0 10*3/uL Normal 0.0-0.7 [facility] Comment on above: Performed By: #### P TT #### [facility] [address] [place] [address] Eosinophils/100 WBC (Bld) 0.9 % Normal [facility] Comment on above: Performed By: #### P TT #### [facility] [address] [place] [address] Lymphocytes (Bld) [#/Vol] 3.5 10*3/uL Normal 1.0-4.8 [facility] Comment on above: Performed By: #### P TT #### [facility] [address] [place] [address] Lymphocytes/100 WBC (Bld) 17.0 % Normal [facility] Comment on above: Performed By: #### P TT #### [facility] [address] [place] [address] Microcytic 1+ Normal [facility] Comment on above: Performed By: #### P TT #### [facility] [address] [place] [address] Monocytes (Bld) [#/Vol] 0.0 10*3/uL Low 0.2-0.8 [facility] Comment on above: Performed By: #### P TT #### [facility] [address] [place] [address] Monocytes/100 WBC (Bld) 7.7 % Normal [facility] [place]) Comment on above: Performed By: #### P TT #### [facility] [address] [place] [address] Neutrophils (Bld) [#/Vol] 17.3 10*3/uL Critically high 1.4-6.5 [facility] Comment on above: Performed By: #### P TT #### [facility] [address] [place] [address] Neutrophils/100 WBC (Bld) 79.0 % Normal [facility] Comment on above: Performed By: #### P TT #### [facility] [address] [place] [address] Platelet Slide Review Normal Normal [facility] Comment on above: Performed By: #### P TT #### [facility] [address] [place] [address] Erythrocyte distribution width (RBC) [Ratio] 14.6 % Critically high 11.5-14.5 [facility] Comment on above: Performed By: #### P TT #### [facility] [address] [place] [address] Hematocrit (Bld) [Volume fraction] 33.3 % Low 37.0-47.0 [facility] Comment on above: Performed By: #### P TT #### [facility] [address] [place] [address] Hemoglobin (Bld) [Mass/Vol] 10.9 g/dL Low 12.0-16.0 [facility] Comment on above: Performed By: #### P TT #### [facility] [address] [place] [address] MCH (RBC) [Entitic mass] 29.8 pg Normal 27.0-31.3 [facility] Comment on above: Performed By: #### P TT #### [facility] [address] [place] [address] MCHC (RBC) [Mass/Vol] 32.9 % Low 33.0-37.0 [facility] Comment on above: Performed By: #### P TT #### [facility] [address] [place] [address] MCV (RBC) [Entitic vol] 90.7 fL Normal 82.0-100.0 [facility] Comment on above: Performed By: #### P TT #### [facility] [address] [place] [address] Platelets (Bld) [#/Vol] 315 10*3/uL Normal 130-400 [facility] Comment on above: Performed By: #### P TT #### [facility] [address] [place] [address] RBC (Bld) [#/Vol] 3.67 10*6/uL Low 4.20-5.40 [facility] Comment on above: Performed By: #### P TT #### [facility] [address] [place] [address] WBC (Bld) [#/Vol] 20.8 10*3/uL Critically high 4.8-10.8 [facility] Comment on above: Performed By: #### P TT #### [facility] [address] [place] [address] Comprehensive Metabolic Pane l reflex Mgon 11-15-2018 Albumin [Mass/Vol] 3.3 g/dL Low 3.5-4.6 [facility] Comment on above: Performed By: #### P TT #### [facility] [address] [place] [address] ALP [Catalytic activity/Vol] 71 U/L Normal 40-130 [facility] Comment on above: Performed By: #### P TT #### [facility] [address] [place] [address] ALT [Catalytic activity/Vol] 12 U/L Normal 0-33 [facility] Comment on above: Performed By: #### P TT #### [facility] [address] [place] [address] Anion gap [Moles/Vol] 11 mmol/L Normal 9-15 [facility] Comment on above: Performed By: #### P TT #### [facility] [address] [place] [address] AST [Catalytic activity/Vol] 28 U/L Normal 0-35 [facility] Comment on above: Performed By: #### P TT #### [facility] [address] [place] [address] Bilirubin [Mass/Vol] 0.4 mg/dL Normal 0.2-0.7 [facility] Comment on above: Performed By: #### P TT #### [facility] [address] [place] [address] Calcium [Mass/Vol] 9.1 mg/dL Normal 8.5-9.9 [facility] Comment on above: Performed By: #### P TT #### [facility] [address] [place] [address] Chloride [Moles/Vol] 98 mmol/L Normal 95-107 [facility] Comment on above: Performed By: #### P TT #### [facility] [address] [place] [address] CO2 [Moles/Vol] 27 mmol/L Normal 20-31 [facility] Comment on above: Performed By: #### P TT #### [facility] [address] [place] [address] Creatinine [Mass/Vol] 0.59 mg/dL Normal 0.50-0.90 [facility] Comment on above: Performed By: #### P TT #### [facility] [address] [place] [address] GFR/1.73 sq M predicted among blacks MDRD (S/P/Bld) [Vol rate/Area] mL/min/{1.73_m2} Normal >60 [facility] Comment on above: Result Comment: >60 mL/min/1.73m2 EGFR, calc. for ages 18 and older using the MDRD formula (not corrected for weight), is valid for stable renal function. Performed By: #### P TT #### [facility] [address] [place] [address] GFR/1.73 sq M.predicted MDRD (S/P/Bld) [Vol rate/Area] mL/min/{1.73_m2} Normal >60 [facility] Comment on above: Result Comment: >60 mL/min/1.73m2 EGFR, calc. for ages 18 and older using the MDRD formula (not corrected for weight), is valid for stable renal function. Performed By: #### P TT #### [facility] [address] [place] [address] Globulin (S) [Mass/Vol] 3.2 g/dL Normal 2.3-3.5 [facility] [place]) Comment on above: Performed By: #### P TT #### [facility] [address] [place] [address] Glucose [Mass/Vol] 123 mg/dL Critically high 70-99 [facility] Comment on above: Performed By: #### P TT #### [facility] [address] [place] [address] Potassium reflex Mg 3.8 mEq/L Normal 3.4-4.9 [facility] Comment on above: Performed By: #### P TT #### [facility] [address] [place] [address] Protein [Mass/Vol] 6.5 g/dL Normal 6.3-8.0 [facility] Comment on above: Performed By: #### P TT #### [facility] [address] [place] [address] Sodium [Moles/Vol] 136 mmol/L Normal 135-144 [facility] Comment on above: Performed By: #### P TT #### [facility] [address] [place] [address] Urea nitrogen [Mass/Vol] 6 mg/dL Low 8-23 [facility] Comment on above: Performed By: #### P TT #### [facility] [address] [place] [address] Culture, Blood 2on 9 Culture, Blood 2 ORDERED BY: ADDY COKER SOURCE: Blood COLLECTED: 11/15/18 16:37 ANTIBIOTICS AT DI.: RECEIVED : 11/15/18 16:42 Culture, Blood 2 FINAL 11/20/18 18:15 No growth after 5 days of incubation. Normal [facility] Comment on above: Performed By: #### C MP #### [facility] [address] [place] [address] Culture, Urineon 11-15-2018 Culture, Urine ORDERED BY: ADDY COKER SOURCE: Urine Clean Catch COLLECTED: 11/15/18 19:05 ANTIBIOTICS AT DI.: RECEIVED : 11/15/18 19:05 Culture, Urine FINAL 11/17/18 07:28 No growth 24 hours Normal [facility] Comment on above: Performed By: #### C MP #### [facility] [address] [place] [address] URINE RT REFLEX TO CULTUREon 11-15-2018 Bilirubin Urine Negative Negative [place], [place] Blood, Urine TRACE Abnormal Negative [place], [place] Clarity, UA Clear Clear [place] Color, UA Yellow Straw/Yellow [place], [place] Glucose, Ur Negative Negative mg/dL [place] Interpretation and review of laboratory results Abnormal [place] Ketones Ql (U) Negative Negative mg/dL [place] Leukocyte esterase Test strip Ql (U) Negative Negative [place] Nitrite, Urine Negative Negative [place], [place] pH, UA 7.0 [place] Protein (U) [Mass/Vol] 30 mg/dL Abnormal Negative [place], [place] Specific [place], UA 1.014 [place] Urine Reflex to Culture YES [place] Urobilinogen, Urine 0.2 <2.0 E.U./dL [place] CAROTID ARTERY BILATERALo n 11-15-2018 [...] Mohsen Childers MD 11/16/18 Final result Normal [facility] Urinalysis, reflex to cultur kendall 11-15-2018 Bilirubin Ql (U) Negative Normal Negative [facility] Comment on above: Performed By: #### P TT #### [facility] [address] [place] [address] Clarity (U) Clear Normal Clear [facility] Comment on above: Performed By: #### P TT #### [facility] [address] [place] [address] Color (U) Yellow Normal Straw/Morrison [facility] Comment on above: Performed By: #### P TT #### [facility] [address] [place] [address] Glucose Ql (U) Negative Normal Negative [facility] Comment on above: Performed By: #### P TT #### [facility] [address] [place] [address] Hemoglobin Ql (U) TRACE Abnormal Negative [facility] Comment on above: Performed By: #### P TT #### [facility] [address] [place] [address] Ketones Ql (U) Negative Normal Negative [facility] Comment on above: Performed By: #### P TT #### [facility] [address] [place] [address] Leukocyte esterase Test strip Ql (U) Negative Normal Negative [facility] Comment on above: Performed By: #### P TT #### [facility] [address] [place] [address] Nitrite Ql (U) Negative Normal Negative [facility] Comment on above: Performed By: #### P TT #### [facility] [address] [place] [address] pH (U) 7.0 [pH] Normal 5.0-9.0 [facility] Comment on above: Performed By: #### P TT #### [facility] [address] [place] [address] Protein Ql (U) 30 mg/dL Abnormal Negative [facility] Comment on above: Performed By: #### P TT #### [facility] [address] [place] [address] Specific gravity (U) [Rel density] 1.014 Normal 1.005-1.03 [facility] Comment on above: Performed By: #### P TT #### [facility] [address] [place] [address] Urine Reflexed to Culture YES Normal [facility] Comment on above: Performed By: #### P TT #### [facility] [address] [place] [address] Urobilinogen Qn (U) 0.2 {Juan'U}/dL Normal < 2.0 [facility] Comment on above: Performed By: #### P TT #### [facility] [address] [place] [address] XR CHEST PORTABLEon 11-16-19 XR CHEST PORTABLE EXAMINATION: XR CHEST PORTABLE CLINICAL HISTORY: fever [...] Pearl Varghese MD 11/16/18 Final result Normal [facility] Basic Metabolic Panel Reflex Mgon 11-14-2018 Anion gap [Moles/Vol] 10 mmol/L Normal 9-15 [facility] Comment on above: Performed By: #### P T #### [facility] [address] [place] [address] Calcium [Mass/Vol] 8.4 mg/dL Low 8.5-9.9 [facility] Comment on above: Performed By: #### P T #### [facility] [address] [place] [address] Chloride [Moles/Vol] 100 mmol/L Normal 95-107 [facility] Comment on above: Performed By: #### P T #### [facility] [address] [place] [address] CO2 [Moles/Vol] 25 mmol/L Normal 20-31 [facility] Comment on above: Performed By: #### P T #### [facility] [address] [place] [address] Creatinine [Mass/Vol] 0.66 mg/dL Normal 0.50-0.90 [facility] Comment on above: Performed By: #### P T #### [facility] [address] [place] [address] GFR/1.73 sq M predicted among blacks MDRD (S/P/Bld) [Vol rate/Area] mL/min/{1.73_m2} Normal >60 [facility] Comment on above: Result Comment: >60 mL/min/1.73m2 EGFR, calc. for ages 18 and older using the MDRD formula (not corrected for weight), is valid for stable renal function. Performed By: #### P T #### [facility] [address] [place] [address] GFR/1.73 sq M.predicted MDRD (S/P/Bld) [Vol rate/Area] mL/min/{1.73_m2} Normal >60 [facility] Comment on above: Result Comment: >60 mL/min/1.73m2 EGFR, calc. for ages 18 and older using the MDRD formula (not corrected for weight), is valid for stable renal function. Performed By: #### P T #### [facility] [address] [place] [address] Glucose [Mass/Vol] 144 mg/dL Critically high 70-99 [facility] Comment on above: Performed By: #### P T #### [facility] [address] [place] [address] Potassium reflex Mg 4.1 mEq/L Normal 3.4-4.9 [facility] Comment on above: Performed By: #### P T #### [facility] [address] [place] [address] Sodium [Moles/Vol] 135 mmol/L Normal 135-144 [facility] Comment on above: Performed By: #### P T #### [facility] [address] [place] [address] Urea nitrogen [Mass/Vol] 6 mg/dL Low 8-23 [facility] Comment on above: Performed By: #### P T #### [facility] [address] [place] [place] [address] CBC With Platelet and Differ entialon 11-14-2018 Basophils (Bld) [#/Vol] 0.1 10*3/uL Normal 0.0-0.2 [facility] Comment on above: Performed By: #### P T #### [facility] [address] [place] [address] Basophils/100 WBC (Bld) 0.5 % Normal [facility] ([place], [place]) Comment on above: Performed By: #### P T #### [facility] [address] [place] [place] [address] Eosinophils (Bld) [#/Vol] 0.1 10*3/uL Normal 0.0-0.7 [facility] Comment on above: Performed By: #### P T #### [facility] [address] [place] [place] [address] Eosinophils/100 WBC (Bld) 0.8 % Normal [facility] Comment on above: Performed By: #### P T #### [facility] [address] [place] [address] Erythrocyte distribution width (RBC) [Ratio] 14.1 % Normal 11.5-14.5 [facility] Comment on above: Performed By: #### P T #### [facility] [address] [place] [address] Hematocrit (Bld) [Volume fraction] 35.4 % Low 37.0-47.0 [facility] Comment on above: Performed By: #### P T #### [facility] [address] [place] [address] Hemoglobin (Bld) [Mass/Vol] 11.7 g/dL Low 12.0-16.0 [facility] Comment on above: Performed By: #### P T #### [facility] [address] [place] [address] Lymphocytes (Bld) [#/Vol] 2.7 10*3/uL Normal 1.0-4.8 [facility] Comment on above: Performed By: #### P T #### [facility] [address] [place] [address] Lymphocytes/100 WBC (Bld) 15.7 % Normal [facility] Comment on above: Performed By: #### P T #### [facility] [address] [place] [address] MCH (RBC) [Entitic mass] 29.7 pg Normal 27.0-31.3 [facility] Comment on above: Performed By: #### P T #### [facility] [address] [place] [address] MCHC (RBC) [Mass/Vol] 33.1 % Normal 33.0-37.0 [facility] Comment on above: Performed By: #### P T #### [facility] [address] [place] [address] MCV (RBC) [Entitic vol] 89.6 fL Normal 82.0-100.0 [facility] ([place], [place]) Comment on above: Performed By: #### P T #### [facility] [address] [place] [address] Monocytes (Bld) [#/Vol] 1.4 10*3/uL Critically high 0.2-0. 8 [facility] Comment on above: Performed By: #### P T #### [facility] [address] [place] [address] Monocytes/100 WBC (Bld) 7.9 % Normal [facility] [place] Comment on above: Performed By: #### P T #### [facility] [address] [place] [address] Neutrophils (Bld) [#/Vol] 12.8 10*3/uL Critically high 1.4-6.5 [facility] Comment on above: Performed By: #### P T #### [facility] [address] [place] [address] Neutrophils/100 WBC (Bld) 75.1 % Normal [facility] Comment on above: Performed By: #### P T #### [facility] [address] [place] [address] Platelets (Bld) [#/Vol] 345 10*3/uL Normal 130-400 [facility] Comment on above: Performed By: #### P T #### [facility] [address] [place] [address] RBC (Bld) [#/Vol] 3.95 10*6/uL Low 4.20-5.40 [facility] Comment on above: Performed By: #### P T #### [facility] [address] [place] [address] WBC (Bld) [#/Vol] 17.0 10*3/uL Critically high 4.8-10.8 [facility] Comment on above: Performed By: #### P T #### [facility] [address] [place] [address] POCT Glucoseon 11-14-2018 Glucose [Mass/Vol] 116 mg/dL Critically high 60-115 [facility] Comment on above: Performed By: #### P T #### [facility] [address] [place] [address] POC Performed on ACCU-CHEK Normal [facility] Comment on above: Performed By: #### P T #### [facility] [address] [place] [address] XR LUMBAR SPINE (2-3 VIEWS)o n 11-14-2018 [...] Mohsen Childers MD 11/14/18 Final result Normal [facility] Basic Metabolic Panel Reflex Mgon 11-13-2018 Anion gap [Moles/Vol] 13 mmol/L Normal 9-15 [facility] Comment on above: Performed By: #### P T #### [facility] [address] [place] [address] Calcium [Mass/Vol] 9.0 mg/dL Normal 8.5-9.9 [facility] Comment on above: Performed By: #### P T #### [facility] [address] [place] [address] Chloride [Moles/Vol] 101 mmol/L Normal 95-107 [facility] Comment on above: Performed By: #### P T #### [facility] [address] [place] [address] CO2 [Moles/Vol] 24 mmol/L Normal 20-31 [facility] Comment on above: Performed By: #### P T #### [facility] [address] [place] [address] Creatinine [Mass/Vol] 0.62 mg/dL Normal 0.50-0.90 [facility] Comment on above: Performed By: #### P T #### [facility] [address] [place] [address] GFR/1.73 sq M predicted among blacks MDRD (S/P/Bld) [Vol rate/Area] mL/min/{1.73_m2} Normal >60 [facility] Comment on above: Result Comment: >60 mL/min/1.73m2 EGFR, calc. for ages 18 and older using the MDRD formula (not corrected for weight), is valid for stable renal function. Performed By: #### P T #### [facility] [address] [place] [address] GFR/1.73 sq M.predicted MDRD (S/P/Bld) [Vol rate/Area] mL/min/{1.73_m2} Normal >60 [facility] Comment on above: Result Comment: >60 mL/min/1.73m2 EGFR, calc. for ages 18 and older using the MDRD formula (not corrected for weight), is valid for stable renal function. Performed By: #### P T #### [facility] [address] [place] [address] Glucose [Mass/Vol] 136 mg/dL Critically high 70-99 [facility] Comment on above: Performed By: #### P T #### [facility] [address] [place] [address] Potassium reflex Mg 3.6 mEq/L Normal 3.4-4.9 [facility] Comment on above: Performed By: #### P T #### [facility] [address] [place] [address] Sodium [Moles/Vol] 138 mmol/L Normal 135-144 [facility] Comment on above: Performed By: #### P T #### [facility] [address] [place] [address] Urea nitrogen [Mass/Vol] 7 mg/dL Low 8-23 [facility] Comment on above: Performed By: #### P T #### [facility] [address] [place] [address] CBC With Platelet No Differe ntialon 11-13-2018 Erythrocyte distribution width (RBC) [Ratio] 14.2 % Normal 11.5-14.5 [facility] Comment on above: Performed By: #### P T #### [facility] [address] [place] [address] Hematocrit (Bld) [Volume fraction] 40.3 % Normal 37.0-47.0 [facility] Comment on above: Performed By: #### P T #### [facility] [address] [place] [address] Hemoglobin (Bld) [Mass/Vol] 13.1 g/dL Normal 12.0-16.0 [facility] Comment on above: Performed By: #### P T #### [facility] [address] [place] [address] MCH (RBC) [Entitic mass] 29.1 pg Normal 27.0-31.3 [facility] Comment on above: Performed By: #### P T #### [facility] [address] [place] [address] MCHC (RBC) [Mass/Vol] 32.4 % Low 33.0-37.0 [facility] Comment on above: Performed By: #### P T #### [facility] [address] [place] [address] MCV (RBC) [Entitic vol] 89.9 fL Normal 82.0-100.0 [facility] Comment on above: Performed By: #### P T #### [facility] [address] [place] [address] Platelets (Bld) [#/Vol] 394 10*3/uL Normal 130-400 [facility] Comment on above: Performed By: #### P T #### [facility] [address] [place] [address] RBC (Bld) [#/Vol] 4.48 10*6/uL Normal 4.20-5.40 [facility] Comment on above: Performed By: #### P T #### [facility] [address] [place] [address] WBC (Bld) [#/Vol] 11.8 10*3/uL Critically high 4.8-10.8 [facility] Comment on above: Performed By: #### P T #### [facility] [address] [facility] [place] [address] Culture, MRSA Screenon 11-13 Culture, MRSA Screen ORDERED BY: BRENNAN HERRON SOURCE: Nares COLLECTED: 11/13/18 09:29 ANTIBIOTICS AT DI.: RECEIVED : 11/13/18 09:29 Culture, MRSA Screen FINAL 11/14/18 08:02 No MRSA isolated Normal [facility] Comment on above: Performed By: #### P T #### [facility] [address] [facility] [address] FLUORO FOR SURGICAL PROCEDUR ESon 11-13-2018 FLUORO [...] Mohsen Childers MD 11/13/18 Final result Normal [facility] Surgical Specimenon 11-14-19 Surgical Specimen [facility] [address] [place] [address] FINAL SURGICAL PATHOLOGY REPORT Patient Name: HIRAM MADRID Accession No: [id number] Age Sex: 1935 Location: [facility] [id number] Account No: [id number] Collected: 11/13/2018 Med Rec No: [id number] Received: 11/14/2018 Attend Phys: LENNY CORRAL Completed: [...] two cassettes after brief decalcification. UVALDO/NIKKY CPT: 73730 X1 [id number] X1 STANLEY GRAFF M.D. 11/15/2018 Electronically signed out by Page 1 of 1 [facility] Comment on above: Performed By: #### P TT #### [facility] [address] [place] [id number] Type and Screen Capture 3 sc rn cellon 11-13-2018 Type and Screen Capture 3 scrn cell PATIENT: MERCY GANDHI LOC: ERICK,FAIZAN CAMPUZANO BILL# : [id number] : 1935 SEX: F ORDERED BY: GOPAL AMIN ORDERED : 11/13/2018 08:10 COLLECTED: 11/13/2018 09:24 ORDER : [id number] RECEIVED : 11/13/2018 09:24 TEST NAME RESULT UNITS RANGES ABN [place] ST ABORH Capture A POS F Antibody 3 Cell Scrn Captu NEG F Normal [facility] Comment on above: Performed By: #### T S3C #### [facility] [address] [place] [id number] XR SPINE ENTIRE (2-3 VIEWS)o n 11-13-2018 [...] Mohsen Childers MD 11/13/18 Final result Normal [facility] MRI LUMBAR SPINE W WO [...] SIGNS OF UNDERLYING PATHOLOGY OR RECENT INJURY. [facility] [place] [place], [facility] Incoming Radiant Results From [facility] - 11/05/2018 3:07 PM EDT EXAMINATION: MRI [...] SIGNS OF UNDERLYING PATHOLOGY OR RECENT INJURY. [place] MRI LUMBAR SPINE W WO CONTRAST [...] Pearl Varghese MD 11/05/18 Final result Normal [facility] Otheron 11-05-2018 Joseph, [facility] Incoming Radiant Results From [facility] - 11/05/2018 1:21 PM EDT EXAMINATION: XR [...] AND POSTOPERATIVE FINDINGS, WITHOUT ACUTE SUPERIMPOSED ABNORMALITY. [place] EXAMINATION: XR LUMBAR SPINE (MIN 4 VIEWS), [...] AND POSTOPERATIVE FINDINGS, WITHOUT ACUTE SUPERIMPOSED ABNORMALITY. [place] XR CHEST (2 VW)on 11-05-2018 XR CHEST (2 VW) EXAMINATION: XR LUMBAR SPINE (MIN 4 VIEWS), [...] Pearl Varghese MD 11/05/18 Final result Normal [facility] XR LUMBAR SPINE (MIN 4 [...] Pearl Varghese MD 11/05/18 Final result Normal [facility] APTTon 11-04-2018 aPTT Coag (Bld) [Time] 27.9 s [facility]- [place] Comment on above: Effective 09/06/2018: Please note methodology and/or reference ranges have changed. aPTT - Heparin Therapeutic Range: 74.0 - 106 seconds C-Reactive Proteinon 019 CRP [Mass/Vol] 1.3 mg/L Normal 0.0-5.0 [facility] Comment on above: Performed By: #### C RP #### [facility] [address] [place] [address] CRP [Mass/Vol] 1.3 mg/L 0 - 5 mg/L [place] CBC Auto Differentialon 10-21 Basophils (Bld) [#/Vol] 0.1 10*3/uL 0 - 0.2 K/u L [place] Basophils/100 WBC (Bld) 1.1 % [place] Eosinophils (Bld) [#/Vol] 0.2 10*3/uL 0 - 0.7 K/uL [place] Eosinophils/100 WBC (Bld) 1.3 % [place] Erythrocyte distribution width (RBC) [Ratio] 13.9 % 11.5 - 14.5 % [place] Hematocrit (Bld) [Volume fraction] 41.3 % 37 - 47 % [place] Hemoglobin (Bld) [Mass/Vol] 14.3 g/dL 12 - 16 g/dL [place] Interpretation and review of laboratory results Abnormal [place] Lymphocytes (Bld) [#/Vol] 3.5 10*3/uL 1 - 4.8 K/uL [place] Lymphocytes/100 WBC (Bld) 28.2 % [place] MCH (RBC) [Entitic mass] 30.5 pg 27 - 31.3 p g [place] MCHC (RBC) [Mass/Vol] 34.6 % 33 - 37 % [place] MCV (RBC) [Entitic vol] 88.0 fL 82 - 100 fL [place] Monocytes (Bld) [#/Vol] 0.8 10*3/uL 0.2 - 0.8 K/uL [place] Monocytes/100 WBC (Bld) 6.8 % [place] Neutrophils Absolute 7.7 K/uL High 1.4 - 6 .5 K/uL [place] Neutrophils/100 WBC (Bld) 62.6 % [place] Platelets (Bld) [#/Vol] 435 10*3/uL High 130 - 400 K/uL [place] RBC (Bld) [#/Vol] 4.69 10*6/uL [place] WBC (Bld) [#/Vol] 12.4 10*3/uL High 4.8 - 10.8 K/uL [place] CBC With Platelet and Differ entialon 11-04-2018 Basophils (Bld) [#/Vol] 0.1 10*3/uL Normal 0.0-0.2 [facility] Comment on above: Performed By: #### C BCWD #### [facility] [address] [place] [address] Basophils/100 WBC (Bld) 1.1 % Normal [facility], [place] Comment on above: Performed By: #### C BCWD #### [facility] [address] [place] [address] Eosinophils (Bld) [#/Vol] 0.2 10*3/uL Normal 0.0-0.7 [facility] Comment on above: Performed By: #### C BCWD #### [facility] [address] [place] [address] Eosinophils/100 WBC (Bld) 1.3 % Normal [facility] Comment on above: Performed By: #### C BCWD #### [facility] [address] [place] [address] Erythrocyte distribution width (RBC) [Ratio] 13.9 % Normal 11.5-14.5 [facility] Comment on above: Performed By: #### C BCWD #### [facility] [address] [place] [address] Hematocrit (Bld) [Volume fraction] 41.3 % Normal 37.0-47.0 [facility] Comment on above: Performed By: #### C BCWD #### [facility] [address] [place] [address] Hemoglobin (Bld) [Mass/Vol] 14.3 g/dL Normal 12.0-16.0 [facility] Comment on above: Performed By: #### C BCWD #### [facility] [address] [place] [address] Lymphocytes (Bld) [#/Vol] 3.5 10*3/uL Normal 1.0-4.8 [facility] Comment on above: Performed By: #### C BCWD #### [facility] [address] [place] [address] Lymphocytes/100 WBC (Bld) 28.2 % Normal [facility] Comment on above: Performed By: #### C BCWD #### [facility] [address] [place] [address] MCH (RBC) [Entitic mass] 30.5 pg Normal 27.0-31.3 [facility] Comment on above: Performed By: #### C BCWD #### [facility] [address] [place] [address] MCHC (RBC) [Mass/Vol] 34.6 % Normal 33.0-37.0 [facility] Comment on above: Performed By: #### C BCWD #### [facility] [address] [place] [address] MCV (RBC) [Entitic vol] 88.0 fL Normal 82.0-100.0 [facility] ([place], [place]) Comment on above: Performed By: #### C BCWD #### [facility] [address] [place] [address] Monocytes (Bld) [#/Vol] 0.8 10*3/uL Normal 0.2-0.8 [facility] Comment on above: Performed By: #### C BCWD #### [facility] [address] [place] [address] Monocytes/100 WBC (Bld) 6.8 % Normal [facility] [place] Comment on above: Performed By: #### C BCWD #### [facility] [address] [place] [address] Neutrophils (Bld) [#/Vol] 7.7 10*3/uL Critically high 1.4-6.5 [facility] Comment on above: Performed By: #### C BCWD #### [facility] [address] [place] [address] Neutrophils/100 WBC (Bld) 62.6 % Normal [facility] Comment on above: Performed By: #### C BCWD #### [facility] [address] [place] [address] Platelets (Bld) [#/Vol] 435 10*3/uL Critically high 130-40 0 [facility] Comment on above: Performed By: #### C BCWD #### [facility] [address] [place] [address] RBC (Bld) [#/Vol] 4.69 10*6/uL Normal 4.20-5.40 [facility] Comment on above: Performed By: #### C BCWD #### [facility] [address] [place] [address] WBC (Bld) [#/Vol] 12.4 10*3/uL Critically high 4.8-10.8 [facility] Comment on above: Performed By: #### C BCWD #### [facility] [address] [place] [address] Comprehensive Metabolic Pane carlos 11-04-2018 Anion gap [Moles/Vol] 14 mmol/L Normal 9-15 [facility] Comment on above: Order Comment: CALL [facility] tel. [phone], Potassium results called to and read back by onofre Millan RN, 11/04/2018 16:24, by [employer] Performed By: #### C MP #### [facility] [address] [place] [address] Bilirubin [Mass/Vol] 0.4 mg/dL Normal 0.2-0.7 [facility] Comment on above: Order Comment: CALL Graf LCED tel. [phone], Potassium results called to and read back by onofre Millan RN, 11/04/2018 16:24, by WEBAM Performed By: #### C MP #### [facility] [address] [place] [address] GFR/1.73 sq M predicted among blacks MDRD (S/P/Bld) [Vol rate/Area] mL/min/{1.73_m2} Normal >60 [facility] Comment on above: Order Comment: CALL Graf LCED tel. [phone], Potassium results called to and read back by onofre Millan RN, 11/04/2018 16:24, by WEBAM Result Comment: >60 mL/min/1.73m2 EGFR, calc. for ages 18 and older using the MDRD formula (not corrected for weight), is valid for stable renal function. Performed By: #### C MP #### [facility] [address] [place] [address] GFR/1.73 sq M.predicted MDRD (S/P/Bld) [Vol rate/Area] mL/min/{1.73_m2} Normal >60 [facility] Comment on above: Order Comment: CALL Graf LCED tel. [phone], Potassium results called to and read back by onofre Millan RN, 11/04/2018 16:24, by WEBAM Result Comment: >60 mL/min/1.73m2 EGFR, calc. for ages 18 and older using the MDRD formula (not corrected for weight), is valid for stable renal function. Performed By: #### C MP #### [facility] [address] [place] [address] Albumin [Mass/Vol] 4.5 g/dL Normal 3.5-4.6 [facility], [place] Comment on above: Order Comment: CALL Graf LCED tel. [phone], Potassium results called to and read back by onofre Millan RN, 11/04/2018 16:24, by WEBAM Performed By: #### C MP #### [facility] [address] [place] [address] ALP [Catalytic activity/Vol] 76 U/L Normal 40-130 [facility], [place] Comment on above: Order Comment: CALL Graf LCED tel. [phone], Potassium results called to and read back by onofre Millan RN, 11/04/2018 16:24, by WEBAM Performed By: #### C MP #### [facility] [address] [place] [address] ALT [Catalytic activity/Vol] 15 U/L Normal 0-33 [facility], [place] Comment on above: Order Comment: CALL Graf LCED tel. [phone], Potassium results called to and read back by onofre Millan RN, 11/04/2018 16:24, by WEBAM Performed By: #### C MP #### [facility] [address] [address] AST [Catalytic activity/Vol] 20 U/L Normal 0-35 [facility], [place] Comment on above: Order Comment: CALL Graf LCED tel. [phone], Potassium results called to and read back by onofre Millan RN, 11/04/2018 16:24, by WEBAM Performed By: #### C MP #### [facility] [address] [place] [address] Calcium [Mass/Vol] 9.9 mg/dL Normal 8.5-9.9 [facility], [place] Comment on above: Order Comment: CALL Graf LCED tel. [phone], Potassium results called to and read back by onofre Millan RN, 11/04/2018 16:24, by WEBAM Performed By: #### C MP #### [facility] [address] [place] [address] Chloride [Moles/Vol] 96 mmol/L Normal 95-107 [facility], [place] Comment on above: Order Comment: CALL Graf LCED tel. [phone], Potassium results called to and read back by onofre Millan RN, 11/04/2018 16:24, by WEBAM Performed By: #### C MP #### [facility] [address] [place] [address] CO2 [Moles/Vol] 24 mmol/L Normal 20-31 [place], [place] Comment on above: Order Comment: CALL Graf LCED tel. [phone], Potassium results called to and read back by onofre Millan RN, 11/04/2018 16:24, by WEBAM Performed By: #### C MP #### [facility] [address] [facility] [place] [address] Creatinine [Mass/Vol] 0.67 mg/dL Normal 0.50-0.90 [place], [place] Comment on above: Order Comment: CALL Graf LCED tel. [phone], Potassium results called to and read back by onofre Millan RN, 11/04/2018 16:24, by WEBAM Performed By: #### C MP #### [facility] [address] [facility] [place] [address] Globulin (S) [Mass/Vol] 2.8 g/dL Normal 2.3-3.5 [place], [place] Comment on above: Order Comment: CALL Graf LCED tel. [phone], Potassium results called to and read back by onofre Millan RN, 11/04/2018 16:24, by WEBAM Performed By: #### C MP #### [facility] [address] [facility] [place] [address] Glucose [Mass/Vol] 109 mg/dL Critically high 70-99 [place], [place] Comment on above: Order Comment: CALL Graf LCED tel. [phone], Potassium results called to and read back by onofre Millan RN, 11/04/2018 16:24, by WEBAM Performed By: #### C MP #### [facility] [address] [facility] [place] [address] Potassium [Moles/Vol] 3.0 mmol/L Critically low 3.4-4.9 [place], [place] Comment on above: Order Comment: CALL Graf LCED tel. [phone], Potassium results called to and read back by onofre Millan RN, 11/04/2018 16:24, by WEBAM Performed By: #### C MP #### [facility] [address] [place] [address] Protein [Mass/Vol] 7.3 g/dL Normal 6.3-8.0 [place], [place] Comment on above: Order Comment: CALL Graf LCED tel. [phone], Potassium results called to and read back by onofre Millan RN, 11/04/2018 16:24, by WEBAM Performed By: #### C MP #### [facility] [address] [place] [address] Sodium [Moles/Vol] 134 mmol/L Low 135-144 [place], [place] Comment on above: Order Comment: CALL Graf LCED tel. [phone], Potassium results called to and read back by onofre Millan RN, 11/04/2018 16:24, by WEBAM Performed By: #### C MP #### [facility] [address] [place] [address] Urea nitrogen [Mass/Vol] 8 mg/dL Normal 8-23 [place], [place] Comment on above: Order Comment: CALL Graf LCED tel. [phone], Potassium results called to and read back by onofre Millan RN, 11/04/2018 16:24, by WEBAM Performed By: #### C MP #### [facility] [address] [place] [address] Anion gap [Moles/Vol] 14 mmol/L [place], [place] Bilirubin Ql (U) 0.4 mg/dL 0.2 - 0.7 mg/dL [place], [place] GFR >60.0 >60 [place], [place] Comment on above: >60 mL/min/1.73m2 EG FR, calc. for ages 18 and older using the MDRD formula (not corrected for weight), is valid for stable renal function. GFR Non- >60.0 >60 [place] Comment on above: >60 mL/min/1.73m2 EG FR, calc. for ages 18 and older using the MDRD formula (not corrected for weight), is valid for stable renal function. Interpretation and review of laboratory results Abnormal [facility] [place] Potassium [Moles/Vol] CALL Graf LCED tel . [phone], Potassium results called to and read back by onofre Millan RN, 11/04/2018 16:24, by TAMMY [facility] [place] Partial Thromboplastin Timeo n 11-04-2018 aPTT Coag (Bld) [Time] 27.9 s Normal 24.4-36.8 [facility] Comment on above: Result Comment: Effe ctive 09/06/2018: Please note methodology and/or reference ranges have changed. aPTT - Heparin Therapeutic Range: 74.0 - 106 seconds Performed By: #### P TT #### [facility] [address] [facility] [address] Prothrombin Timeon 9 INR Coag (PPP) [Relative time] 0.9 {INR} Normal [facility] Comment on above: Result Comment: Warf camden Therapy INR Therapeutic: 2.0-3.0 With Mechanical Valve: >2.5 Low-intensity Therapeutic Range: 1.5-2.0 Mod-intensity Therapeutic Range: 2.0-3.0 High-intensity Therapeutic Range: 2.5-3.5 HIgh-intensity Therapeutic Range: 3.0-4.0 Common Critical/Alarm Value: 5.0 Common Upper Limit Reported: 10.0 Effective 08/30/2018: Please note methodology and/or reference ranges have changed. Performed By: #### P T #### [facility] [address] [facility] [address] PT Coag (PPP) [Time] 12.1 s Low 12.3-14.9 [facility] Comment on above: Result Comment: Effe ctive 08/30/18 Please note methodology and/or reference ranges have changed. Performed By: #### P T #### [facility] [address] [facility] [address] Protime-INRon 11-04-2018 INR Coag (PPP) [Relative time] 0.9 {INR} [place], [place] Comment on above: Warfarin Therapy INR Therapeutic: 2.0-3.0 With Mechanical Valve: >2.5 Low-intensity Therapeutic Range: 1.5-2.0 Mod-intensity Therapeutic Range: 2.0-3.0 High-intensity Therapeutic Range: 2.5-3.5 HIgh-intensity Therapeutic Range: 3.0-4.0 Common Critical/Alarm Value: 5.0 Common Upper Limit Reported: 10.0 Effective 08/30/2018: Please note methodology and/or reference ranges have changed. Interpretation and review of laboratory results Abnormal [place], [place] PT Coag (PPP) [Time] 12.1 s Low [place], [place] Comment on above: Effective 08/30/18 Please note methodology and/or reference ranges have changed. Sedimentation Rateon 019 Sedimentation Rate 12 mm Normal 0-30 [facility] Comment on above: Performed By: #### E SR #### [facility] [address] [place] [id number] Sed Rate 12 mm 0 - 30 mm [place], [place] Vital Signs Date Time Vital Sign Value Performing Clinician Ivonne ledesma 05-03-2023 14:21-0400 Blood Pressure Location Turner DOSS [facility] [employer] 05-03-2023 14:21-0400 Diastolic blood pressure 82 mm[Hg] Turner DOSS [facility] 05-03-2023 14:21-0400 Heart rate 76 /min Turner DOSS [facility] [employer] 05-03-2023 14:21-0400 Respiratory rate 16 /min Turner DOSS [facility] [employer] 05-03-2023 14:21-0400 Systolic blood pressure 156 mm[Hg] Turner DOSS [facility] [employer] 04-15-2023 13:38-0500 Diastolic blood pressure 70 mm[Hg] MD Addy Daniels Work Phone: [facility] 04-15-2023 13:38-0500 Heart rate 76 /min MD Addy Daniels Work Phone: [facility] 04-15-2023 13:38-0500 Respiratory rate 18 /min MD Addy Daniels Work Phone: [facility] 04-15-2023 13:38-0500 SaO2% (BldA) [Mass fraction] 97 % MD Addy Daniels Work Phone: [facility] 04-15-2023 13:38-0500 Systolic blood pressure 160 mm[Hg] MD Addy Daniels Work Phone: [facility] 04-15-2023 12:07-0500 Body height 154.94 cm MD Addy Daniels Work Phone: [facility] 04-15-2023 12:07-0500 Body temperature 97.8 [degF] MD Addy Daniels Work Phone: [facility] 04-15-2023 12:07-0500 Body weight 60.5 kg MD Addy Daniels Work Phone: [facility] 04-06-2023 11:51-0500 Body temperature 97.9 [degF] MD Addy Daniels Work Phone: [facility] 04-06-2023 11:51-0500 Diastolic blood pressure 76 mm[Hg] MD Addy Daniels Work Phone: [facility] 04-06-2023 11:51-0500 Heart rate 84 /min MD Addy Daniels Work Phone: [facility] 04-06-2023 11:51-0500 Respiratory rate 18 /min MD Addy Daniels Work Phone: [facility] 04-06-2023 11:51-0500 SaO2% (BldA) [Mass fraction] 97 % MD Addy Daniels Work Phone: [facility] 04-06-2023 11:51-0500 Systolic blood pressure 146 mm[Hg] MD Addy Daniels Work Phone: [facility] 04-06-2023 06:00-0500 Body weight 58.6 kg MD Addy Daniels Work Phone: [facility] 04-04-2023 13:15-0500 Body height 154.94 cm MD Addy Daniels Work Phone: [facility] 12-22-2022 11:40-0400 Blood Pressure Location MIKAYLA WEISS [facility] 12-22-2022 11:40-0400 Diastolic blood pressure 84 mm[Hg] MIKAYLA WEISS [facility] 12-22-2022 11:40-0400 Systolic blood pressure 124 mm[Hg] MIKAYLA WEISS [facility] 08-06-2022 00:10-0400 Body temperature 97.3 [degF] MD Addy Daniels Work Phone: [facility] 08-06-2022 00:10-0400 Diastolic blood pressure 74 mm[Hg] MD Addy Daniels Work Phone: [facility] 08-06-2022 00:10-0400 Heart rate 80 /min MD Addy Daniels Work Phone: [facility] 08-06-2022 00:10-0400 Respiratory rate 18 /min MD Addy Daniels Work Phone: [facility] 08-06-2022 00:10-0400 SaO2% (BldA) [Mass fraction] 96 % MD Addy Daniels Work Phone: [facility] 08-06-2022 00:10-0400 Systolic blood pressure 177 mm[Hg] MD Addy Daniels Work Phone: [facility] 08-05-2022 19:51-0400 Body height 154.94 cm MD Addy Daniels Work Phone: [facility] 08-05-2022 19:51-0400 Body weight 67.6 kg MD Addy Daniels Work Phone: [facility] 11-20-2018 07:02-0400 Body Temperature 97 [degF] Mary Vega [facility], [place] 11-20-2018 07:02-0400 BP Diastolic 61 mm[Hg] Mary Vega [facility], [place] 11-20-2018 07:02-0400 BP Systolic 153 mm[Hg] [facility] [place] 11-20-2018 07:02-0400 Pulse (Heart Rate) 75 /min [facility] [place] 11-20-2018 07:02-0400 Pulse Oximetry 97 % [facility] [place] 11-20-2018 07:02-0400 Respiratory Rate 17 /min Mary Vega [facility], [place] 11-17-2018 05:54-0400 BMI (Body Mass Index) 27.62 kg/m2 [facility] [place] 11-17-2018 05:54-0400 Body weight 66.3 kg [facility] [place] 11-15-2018 15:58-0400 Height 154.9 cm [address] [facility] [place] 11-05-2018 07:30-0400 BP Diastolic 57 mm[Hg] [facility] [place] 11-05-2018 07:30-0400 BP Systolic 135 mm[Hg] [facility] [place] 11-05-2018 07:30-0400 Pulse (Heart Rate) 70 /min [facility] [place] 11-05-2018 07:30-0400 Pulse Oximetry 97 % [facility] [place] 11-04-2018 20:06-0400 Body Temperature 98.4 [degF] Lenny [employer] [facility], [place] 11-04-2018 20:06-0400 Respiratory Rate 16 /min Lenny [employer] [facility], [place] 11-04-2018 14:56-0400 BMI (Body Mass Index) 27.4 kg/m2 Lenny Elils [facility], [place] 11-04-2018 14:56-0400 Body weight 65.77 kg [facility] , [place] 11-04-2018 14:56-0400 Height 154.9 cm [facility] , [place] Encounters Encounter Date Encounter Type Care Provider Facility Start: 06-29-2023 ambulatory MIKAYLAABRAHAN WEISS Morgan ty:[facility] [place] Start: 06-28-2023 End: 06-28-2023 ambulatory Turner R DINESHL Facility:[facility] Start: 06-28-2023 End: 06-28-2023 Patient encounter procedure Turner R NILL [facility] [place] Start: 06-21-2023 End: 06-21-2023 ambulatory MD Addy Daniels Work Phone: [facility] Work Phone: Start: 06-21-2023 End: 06-21-2023 Departed Referred MD Addy Daniels Work Phone: [facility]-LAB Path [facility] Start: 06-21-2023 End: 06-21-2023 ambulatory Turner R NILL Facility:CD:[id number] Start: 05-03-2023 End: 05-03-2023 ambulatory Addy Daniels Facility:[facility] Start: 05-03-2023 End: 05-03-2023 Patient encounter procedure Turner R NILL General Surgery Nill/Said [place] Start: 04-15-2023 End: 04-15-2023 Emergency department patient visit MD Addy Daniels Work Phone: [facility]-Emergency Room Work Phone: Start: 04-13-2023 ambulatory Turner NILL Facility:[facility] [place] Start: 04-12-2023 Non-patient / Non-visit MD Aime Daniels Work Phone: [facility] Work Phone: Start: 04-03-2023 Non-patient / Non-visit MD Aime Daniels Work Phone: [facility] Physician [facility] Neph[facility] Work Phone: Start: 04-02-2023 Non-patient / Non-visit MD Aime Daniels Work Phone: [facility] Physician [facility] Work Phone: Start: 04-02-2023 End: 04-06-2023 Evaluation and management of inpatient MD Addy Dainels Work Phone: [facility] [place] [facility] Work Phone: Start: 01-11-2023 End: 01-11-2023 ambulatory [facility] Start: 12-22-2022 End: 12-22-2022 ambulatory MIKAYLA WEISS Facility:[facility] Start: 12-22-2022 End: 12-22-2022 Patient encounter procedure MIKAYLA WEISS [facility] [place] Start: 10-14-2022 End: 10-14-2022 ambulatory [facility] Start: 08-05-2022 End: 08-06-2022 Emergency department patient visit MD Addy Daniels Work Phone: [facility]-Emergency Room Work Phone: Start: 06-13-2022 End: 06-14-[address] ADDY DANIELS . Facility:[facility] Start: 05-19-[address] ADDY DANIELS . Facili ty:[facility] Start: 04-18-2022 End: 04-19-[address] VALERIE DARDEN Facility:[facility] Start: 04-04-2022 End: 04-04-2022 ambulatory [facility] Start: 01-30-[address] ADDY Orta Facili ty:[facility] Start: 01-04-2022 End: 01-05-[address] ADDY DANIELS . Facility:[facility] Start: 12-26-2021 End: 12-29-2021 Evaluation and management of inpatient DR ADDY DANIELS . Facility:[facility] Start: 12-02-2021 End: 01-04-2022 Pre-admission assessment Alie Santos [facility] Start: 11-30-2021 End: 12-01-[address] JESUS BRUNO Facility:[facility] Start: 11-09-2021 End: 11-10-[address] CALISTA ACEVES Facility:[facility] Start: 08-06-2021 End: 08-07-[address] VALERIE DARDEN Facility:[facility] Start: 07-28-2021 End: 07-29-[address] CALISTA ACEVES Facility:[facility] Start: 06-22-2021 End: 06-22-2021 Patient encounter procedure VALERIE DARDEN [facility] Start: 11-15-2018 End: 11-20-2018 Evaluation and management of inpatient MARY VEGA [facility] Start: 11-15-2018 End: 11-20-2018 Evaluation and management of inpatient Mary Vega Work Phone: [facility] Comment on above: Spinal stenosis of l umbosacral region (Primary Dx); Impaired mobility; Vasovagal syncope Start: 11-13-2018 End: 11-15-2018 Evaluation and management of inpatient LENNY CORRAL [facility] Start: 11-13-2018 End: 11-15-2018 Patient encounter procedure LENNY CORRAL [facility] Start: 11-04-2018 End: 11-05-2018 Patient encounter procedure CALISTA ACEVES [facility] Start: 11-04-2018 End: 11-05-2018 Emergency department patient visit Lenny Corral Work Phone: [facility] Comment on above: Lumbar radiculopathy (Primary Dx); Intractable low back pain Start: 04-19-2018 End: 04-20-2018 Patient encounter procedure DEFAULT PHYSICIAN Facility:[facility] Procedures Date Procedure Procedure Detail Performing Clinician Start: 06-21-2023 Excision of basal ce ll carcinoma Turner DOSS Comment on above: left nasolabial fold Start: [...] wbc Lenny H. Ellis Work Phone: Start: 11-20-2018 INCENTIVE SPIROMETRY RT [...] 11-19-2018 C-reactive protein h igh sensitivity CALISTA ACVEES Start: 11-19-2018 Sedimentation rate r bc automated [...] r-t 2d w/ wom-mode compl spec&colr d [facility] Work Phone: Start: 11-16-2018 INCENTIVE SPIROMETRY [...] Blood count complete auto&auto difrntl wbc Mary ShahtrongYuko Work Phone: Start: 11-16-2018 DAILY WEIGHTS CALISTA [...] ICAL VTE PROPHYLAXIS CALISTA ACEVES Start: 11-15-2018 COAGULANT DIPPER EVAL AND TREAT CHRIS ACEVES Start: 11-15-2018 TOBACCO CESSATION EDUCATION CALISTA ACEVES Start: 11-15-2018 VITAL SIGNS CALISTA RIVERA MICHELE Start: 11-15-2018 Radiologic exam ches t single view CALISTA ACEVES Start: 11-15-2018 INCENTIVE SPIROMETRY RT CALISTA ACEVES Start: 11-15-2018 Radiologic exam ches t single view Mary Gary Work Phone: Start: 11-15-2018 Duplex scan extracra [...] above: Performed By: #### P TT #### [facility] [address] [place] [id number] Start: 11-15-2018 Urnls dip stick/tabl et rgnt auto w/o microscopy Mary HubbardSantana Work Phone: Start: 11-15-2018 IP CONSULT TO HOSPITALIST CALISTA ACEVES Start: 11-15-2018 PATIENT STATUS (DIRECT) CALISTA ACEVES Start: 11-15-2018 AMBULATE PATIENT CALISTA KETAN Start: 11-15-2018 DIET GENERAL CALISTA STAFFORD UN [...] CALISTA ACEVES Start: 11-15-2018 DISCHARGE PATIENT MARQUEZ A KETAN Start: 11-15-2018 Blood count complete auto&auto [...] CALISTA ACEVES Start: 11-13-2018 DIET GENERAL CALISTA MICHELE Start: 11-13-2018 PLACE INTERMITTENT P NEUMATIC COMPRESSION DEVICE CALISTA ACEVES Start: 11-13-2018 PULSE OXIMETRY, CONTINUOUS CALISTA ACEVES Start: 11-13-2018 ADVANCE DIET ROLAND RATED (NURSING COMMUNICATION) CALISTA ACEVES Start: 11-13-2018 ELEVATE HOB CALISTA STAFFORD UN Start: 11-13-2018 INCENTIVE SPIROMETRY RT CALISTA ACEVES Start: 11-13-2018 INITIATE OXYGEN THER APY PROTOCOL CALISTA ACEVES Start: 11-13-2018 INTAKE AND OUTPUT MARQUEZ Gissell ACEVES Start: 11-13-2018 NEURO/VASCULAR CHECKS M DORAPRESLEY ACEVES Start: 11-13-2018 NOTIFY PHYSICIAN (SPECIFY) CALISTA [...] UN Start: 11-05-2018 INTAKE AND OUTPUT MARQUEZ A KETAN Start: 11-05-2018 NOTIFY PHYSICIAN (SPECIFY) CALISTA [...] Turner DOSS Procedure on back MIKAYLA Ammon AMADOYousuf Tonsillectomy MIKAYLA WEISS Plan of Treatment Date Care Activity Detail Author Start: 04-06-[address] [facility] Start: 04-04-2023 Administration of prophylactic treatment [facility] Start: 04-02-2023 Referral to folder machine adjuster [facility] Start: 04-02-2023 Hospital admission [facility] Start: 08-05-2022 CT Abdomen and Pelvi s WO contrast [facility] Start: 08-05-2022 CT of abdomen and pe lvis without contrast CT abdomen pelvis wo con [facility] Start: 11-19-2019 Creatinine monitoring Creatinine mon [place], [place] Start: 11-19-2019 Potassium monitoring Potassium monit [place], [place] Start: 11-05-2019 Creatinine monitoring Creatinine mon [place], [place] Start: 11-05-2019 Potassium monitoring Potassium monit [place] Start: 12-04-2018 End: 12-04-2018 Office Visit 12/04/2018 Office Visit Neurosurgery Lenny Corral MD [address] [facility], [address] [place] [address] [employer] Start: 11-30-2018 End: 11-30-2018 Office Visit 11/30/2018 Office Visit Neurosurgery Lenny Corral MD [address] [facility], [address] [id number] [employer] Start: 11-23-2018 End: 11-23-2018 Office Visit 11/23/2018 Office Visit Neurosurgery Lenny Corral MD [address] [facility], [address] [id number] [employer] Start: 11-13-2018 Annual Wellness Visi t (AWV) Annual Wellness Visit (AWV) [place] Start: 10-21-2018 Influenza vaccination Flu vaccine (# 1) [place] Start: 2001 DEXA (modify frequen cy per FRAX score) DEXA (modify frequency per FRAX score) [place] Start: 2001 Pneumococcal 65+ yea rs Vaccine (1 of 2 - PCV13) Pneumococcal 65+ years Vaccine (1 of 2 - PCV13) [place] Start: 1986 Shingles Vaccine (1 of 2) Steward gles Vaccine (1 of 2) [place] Start: 11-13-1955 DTaP/Tdap/Td vaccine (1 - Tdap) DTaP/Tdap/Td vaccine (1 - Tdap) [place], [place] Start: 1946 Lipid screen Lipid screen [place], [place] Culture Blood #1 Culture Blood # 1 Microbiology STAT 11/15/2018 4:37 PM EDT [place] Culture Blood #2 Culture Blood # 2 Microbiology STAT 11/15/2018 4:37 PM EDT [place] End: 11-05-2018 EKG 12 Lead EKG 12 Lead ECG Routine One Time for 1 Occurrences starting 11/05/2018 until 11/05/2018 [place] Comment on above: One Time for 1 Occur rences starting 11/05/2018 until 11/05/2018 Incentive spirometry Incentive s pirometry Respiratory Care Routine Every 2hr while awake until discontinued starting 11/15/2018 [facility] [place] Comment on above: Every 2hr while awak e until discontinued starting 11/15/2018 Initiate Oxygen Ther apy Protocol Initiate Oxygen Therapy Protocol Respiratory Care Routine Daily until discontinued starting 11/15/2018 [facility] [place] Comment on above: Daily until disconti nued starting 11/15/2018 Nonrebreather mask oxygen Nonreb reather mask oxygen Respiratory Care Routine As directed - RT (PRN) until discontinued starting 11/05/2018 [facility] [place] Comment on above: As directed - RT ([place] N) until discontinued starting 11/05/2018 Patient Education [facility] Work Phone: Patient referral [facility] Work Phone: End: 11-15-2018 Speech and language therapy regime Speech language pathology evaluation COAGULANT DIPPER Routine One Time for 1 Occurrences starting 11/15/2018 until 11/15/2018 [facility] [place] Comment on above: One Time for 1 Occur rences starting 11/15/2018 until 11/15/2018 End: 11-04-2018 Urine Reflex to Culture Urine Reflex to Culture Lab STAT One Time for 1 Occurrences starting 11/04/2018 until 11/04/2018 [facility] [place] Comment on above: One Time for 1 Occur rences starting 11/04/2018 until 11/04/2018 Immunizations Immunization Date Immunization Notes Care Provider Laxmi romero 12-20-2021 influenza virus vaccine, unspecified formulation MIKAYLA WEISS [facility] 11-30-2021 influenza virus vaccine, unspecified formulation MD Addy Daniels Work Phone: [facility] 12-21-2020 influenza virus vaccine, unspecified formulation MIKAYLA WEISS [facility] 01-09-2019 influenza virus vaccine, unspecified formulation MIKAYLA WEISS [facility] 11-29-2017 influenza virus vaccine, unspecified formulation MIKAYLA WEISS [facility] 01-02-2017 influenza virus vaccine, unspecified formulation MIKAYLA WEISS [facility] 12-06-2016 influenza virus vaccine, unspecified formulation MIKAYLA WEISS [facility] 12-11-2014 influenza virus vaccine, unspecified formulation MIKAYLA WEISS [facility] NEGATED: Highlighted row has not occurred!05-03-2023 influenza virus vaccine, unspecified formulation Turner DOSS General Surgery [employer] Payers Date Payer Category Payer Self-pay [id number] 2021 Unknown [id number] 2018 Medicare MEDICARE MEDICAR E PART A AND B xxxxxxxxxxx 2018-Present [phone] [place] [address] xxxxxxxxxxx [id number] 2014 Medicare [id number] 2014 Medicare MEDICARE MEDICAR E PART A AND B xxxxxxxxxx 2014-Present [phone] [place] [address] xxxxxxxxxx [id number] 2014 Unknown [id number] 2014 Unknown 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 [address] xxxxxxxxxxxx 2014-Present [phone] [address] [place] [address] xxxxxxxxxxxx [id number] [id number] 1959 Medicare [id number] 1959 Self-pay [id number] 1959 Unknown [id number] 1936 Unknown [id number] 2.16.840.1.813312.3.579.2.647 1936 Unknown [id number] 2.16.840.1.080532.3.579.2.182 1936 Unknown [id number] 2.16.840.1.675775.3.579.2.182 1936 Unknown [id number] 2.16.840.1.150695.3.579.2.182 1936 Unknown [id number] 2.16.840.1.746740.3.579.2.182 1936 Unknown [id number] 2.16.840.1.650881.3.579.2.593 1936 Unknown [id number] 2.16.840.1.392043.3.579.2.593 1936 Unknown [id number] 2.16.840.1.609331.3.579.2.593 1936 Unknown [id number] 2.16.840.1.934687.3.579.2.593 1936 Unknown [id number] 2.16.840.1.388456.3.579.2.593 1936 Unknown [id number] 2.16.840.1.447983.3.579.2.593 1936 Unknown [id number] 2.16.840.1.237696.3.579.2.593 1936 Unknown [id number] 2.16.840.1.509926.3.579.2.593 1936 Unknown [id number] 2.16.840.1.620714.3.579.2.593 1936 Unknown [id number] 2.16.840.1.597014.3.579.2.593 1936 Unknown [id number] 2.16.840.1.577387.3.579.2.727 1936 Unknown [id number] 2.16.840.1.349576.3.579.2.727 1936 Unknown [id number] 2.16.840.1.302362.3.579.2.727 1936 Unknown [id number] 2.16.840.1.711712.3.579.2.727 1936 Unknown [id number] 2.16.840.1.823307.3.579.2.727 Unknown Unknown [id number] 2.16.840.1.082279.3.579.2.531 Unknown [id number] 2.16.840.1.186702.3.579.2.531 Unknown [id number] 2.16.840.1.614280.3.579.2.531 Social History Date Type Detail Facility Start: 11-04-2018 End: 04-15-2023 Tobacco smoking status NHIS Never smoker [facility] Start: 11-04-2018 End: 11-19-2018 Alcohol intake Not Currently [place] Sex Assigned At Not on file [place] Tobacco smoking status No Smokin g Status Entered [facility] Start: 1935 Sex Assigned At Female F [facility] Tobacco smoking status Never [facility] Medical Equipment Procedure Code Equipment Code Equipment Origin al Text Equipment Identifier Dates Graft Canc Chip 30cc [id number] - [id number] Start: 11-13-2018 Graft Canc Chip 1.0xo50mr 15cc - [id number] Start: 11-13-2018 Sys Fix Reline 0 x Conn 40 50mm 5.5lp Adj [id number] Start: 11-13-2018 Jose Armando-Graft Infuse Kt Med [id number] Start: 11-13-2018 Impl Spine Cage Kamila Crv [id number] 8deg [id number] Start: 11-13-2018 Impl Spine Cage Kamila Crv [id number] 8deg [id number] Start: 11-13-2018 Screw Polyaxial Reline O 2s 6.0x55mm [id number] Start: 11-13-2018 Screw Lk Reline Opn Tulip 5.5mm [id number] Start: 11-13-2018 Impl Spine Harish Reline-O Lrdtc 5.5x70mm [id number] Start: 11-13-2018 Impl Spine Harish Reline-O 5.5x75mm [id number] Start: 11-13-2018 Goals Date Patient Goal Desired Activity /State Functional Status Date Assessment Result Facility 05-03-2023 Functional Status N/A General Ross rgery Fatmata 04-06-2023 Functional status Patient at Baseline [facility] Work Phone: 12-22-2022 Functional Status N/A [facility] Mental Status Date Assessment Result Facility 04-06-2023 Cognitive function Cognitive Sta tus Patient at Baseline [facility] Work Phone: Clinical Notes [...] plan excisional biopsy under local anesthesia at [facility], for definitive diagnosis and treatment, informed consent [...] mg= 1 tab(s), Oral, Daily Potassium Chloride (Xmi-Leof-Fwi 10), 20 mEq, Oral, TID pravastatin 80 [...] Recorded influenza virus vaccine, inactivated 12/11/2014 Recorded [facility] Comment on above: Result Comment: Elec tronically Signed By: ROMARIO DUMONT, Turner Mckeon\.br\Date and Time Signed: 05/03/23 20:14 EDT 04-06-2023 Discharge summary Note Date/Time April 06, 2023 12:22pm [facility] [address] [place] [address] Discharge Summary Signed Patient: Hiram Madrid MR#: [id number] : 1935 Acct:[id number] Age/Sex: 87 / F Adm Date: 4 Loc: Room: [address] [place] [address]: Turner Frank DO Copies to: [...] is a 89-year-old who presented here to [facility] as a transfer on 04/02/2023. [...] amlodipine daily. Her home med list reports [id number] mg but currently shows me a 5 [...] Plan Discharge Plan Patient Disposition[place] [facility] [place]: Ambulate as Tolerated Diet: Low-Sodium Additional [...] <Electronically signed by Turner Frank DO> 04/06/[address] [place] [address] Work Phone: 1(944) 913-331902-14-2024 Progress note Author Turner Frank [facility] April 05, 2023 8:14pm Note Date/Time April 05, 2023 8:14pm [facility] [address] [place] [address] Hospitalist Progress Note Signed Patient: Hiram Madrid MR#: [id number] : 1935 Acct:[id number] Age/Sex: 87 / F Adm Date: 4 Loc: Room: [address] [place] [address] Type: ADM IN Attending Dr: Turner Frank [...] Meq Kcl IV 04/01/24 20:29 0 mls/hr .[id number] [facility] Infusion Levothyroxine Sodium 88 mcg 04/03/23 [...] <Electronically signed by Turner Frank DO> 04/05/232013 [facility] Work Phone: 1(445) 966-989002-14-2024 Progress note Author Gaudencio [facility] April 05, 2023 11:16am Note Date/Time April 05, 2023 11:16am [facility] [address] [place] [address] Nephrology Progress Note Signed Patient: Hiram Madrid MR#: [id number] : 1935 Acct:[id number] Age/Sex: 87 / F Adm Date: 4 Loc: 4 Room: 1T2410-5 Type: ADM IN Attending Dr: Turner Frank DO Copies to: ~ Date of Service: 04/05/2023 Subjective Subjective Narrative: Ms. Madrid is an 87-year-old white female was transferred from [facility] on 04/02/23 for hyponatremia. Patient did complain for nausea with no vomiting or diarrhea. She had back pain and other vague symptoms that prompted her to go [facility]. ER lab showed sodium 116, potassium 2.3 and magnesium 1.6. Otherlabs unremarkable including creatinine 0.7 mg/dL. EKG showed normal sinus rhythm at 86/min with right bundle branch block. Patient was given 2 g magnesium in the emergency room and subsequently was transferred to [facility] for further management. On arrival, patient was placed on gentle hydration with normal saline with 20 mEq potassium chloride at rate of75 cc/h. Review of his records showed that the patient has a chronic hyponatremia for almost a year however she never seen folder machine adjuster. Sodium has been running in the 120s. [...] [facility] [...] 10 Mg Tablet) 10 mg PO DAILY [facility] Stop: 04/02/24 08:59 Last Admin: 04/05/23 08:25 Dose: 10 mg Docusate Sodium (Docusate 100 Mg Capsule) 200 mg PO BID PRN PRN Reason: Constipation Stop: 04/01/24 19:57 Docusate Sodium (Docusate 100 Mg Capsule) 200 mg PO BID [facility] Stop: 04/02/24 08:59 Last Admin: 04/05/23 08:25 Dose: 200 mg Hydralazine HCl (Hydralazine 20 Mg/Ml Vial) 10 mg IV-PUSH Q4H PRN PRN Reason: if SBP > 185 Stop: 04/01/24 19:57 Potassium Chloride/Sodium Chloride (0.9 % Nacl-20 Meq Kcl) 1,000 mls @ 75 mls/hr IV .[id number] [facility] Stop: 04/01/24 20:29 Last Infusion: 04/04/23 08:45 Dose: 0 mls/hr Levothyroxine Sodium (Levothyroxine 88 Mcg Tablet) 88 mcg PO DAILY@0630 [facility] Stop: 04/02/24 06:29 Last Admin: 04/05/23 05:52 Dose: 88 mcg Lorazepam (Lorazepam 2 Mg/Ml Vial) 0.25 mg IV-PUSH Q4H PRN PRN Reason: Anxiety Stop: 10/01/23 11:38 Losartan Potassium (Losartan 50 Mg Tablet) 100 mg PO DAILY [facility] Stop: 04/02/24 08:59 Last Admin: 02/14/24 08:26 Dose: 100 mg Pantoprazole Sodium (Pantoprazole [...] signed by MD Gaudencio Romero> 04/05/23 1116 [facility] Work Phone: 1(628) 688-615302-13-2024 Progress note Author Gaudencio Romero [facility] April 04, 2023 2:06pm Note Date/Time April 04, 2023 2:00pm [facility] [address] [place] [address] Nephrology Progress Note Signed Patient: Hiram Madrid MR#: [id number] : 1935 Acct:[id number] Age/Sex: 87 / F Adm Date: 4 Loc: Room: [address] [place] [address] Type: ADM IN Attending Dr: Turner Frank DO Copies to: ~ Date of Service: 04/04/2023 Subjective Subjective Narrative: Ms. Madrid is an 87-year-old white female was transferred from [facility] on 04/02/23 for hyponatremia. Patient did complain for nausea with no vomiting or diarrhea. She had back pain and other vague symptoms that prompted her to go [facility]. ER lab showed sodium 116, potassium 2.3 and magnesium 1.6. Otherlabs unremarkable including creatinine 0.7 mg/dL. EKG showed normal sinus rhythm at 86/min with right bundle branch block. Patient was given 2 g magnesium in the emergency room and subsequently was transferred to [facility] for further management. On arrival, patient was placed on gentle hydration with normal saline with 20 mEq potassium chloride at rate of75 cc/h. Review of his records showed that the patient has a chronic hyponatremia for almost a year however she never seen folder machine adjuster. Sodium has been running in the 120s. [...] 10 Mg Tablet) 10 mg PO DAILY [facility] Stop: 04/02/24 08:59 Last Admin: 04/04/23 10:06 Dose: 10 mg Docusate Sodium (Docusate 100 Mg Capsule) 200 mg PO BID PRN PRN Reason: Constipation Stop: 04/01/24 19:57 Docusate Sodium (Docusate 100 Mg Capsule) 200 mg PO BID [facility] Stop: 04/02/24 08:59 Last Admin: 04/04/23 10:06 Dose: Not Given Hydralazine HCl (Hydralazine 20 Mg/Ml Vial) 10 mg IV-PUSH Q4H PRN PRN Reason: if SBP > 185 Stop: 04/01/24 19:57 Potassium Chloride/Sodium Chloride (0.9 % Nacl-20 Meq Kcl) 1,000 mls @ 75 mls/hr IV .[id number] [facility] Stop: 04/01/24 20:29 Last Infusion: 04/04/23 08:45 Dose: 0 mls/hr Levothyroxine Sodium (Levothyroxine 88 Mcg Tablet) 88 mcg PO DAILY@0630 [facility] Stop: 04/02/24 06:29 Last Admin: 04/04/23 06:26 Dose: 88 mcg Lorazepam (Lorazepam 2 Mg/Ml Vial) 0.25 mg IV-PUSH Q4H PRN PRN Reason: Anxiety Stop: 10/01/23 11:38 Losartan Potassium (Losartan 50 Mg Tablet) 100 mg PO DAILY [facility] Stop: 04/02/24 08:59 Last Admin: 04/04/23 10:06 Dose: 100 mg Pantoprazole Sodium (Pantoprazole 40 Mg Tablet.Dr) 40 mg PO DAILY.0630 [facility] Stop: 04/04/24 08:59 Pravastatin Sodium (Pravastatin 40 Mg Tablet) 80 mg PO DAILY [facility] Stop: 04/02/24 08:59 Last Admin: 04/04/23 10:06 [...] outpatient Documented By: Gaudencio Romero MD 04/04/23 4286 Signed By: <Electronically signed by MD Gaudencio Romero> 04/04/23 1393 [facility] Work Phone: 1(279) 129-732402-13-2024 Progress note Author Turner Frank [facility] April 04, 2023 1:09pm Note Date/Time April 04, 2023 1:09pm [facility] [address] [place] [address] Hospitalist Progress Note Signed Patient: Hiram Madrid MR#: [id number] : 1935 Acct:[id number] Age/Sex: 87 / F Adm Date: 4 Loc: Room: [address] [place] [address] Type: ADM IN Attending Dr: Turner Frank [...] Meq Kcl IV 04/01/24 20:29 0 mls/hr .[id number] [facility] Infusion Levothyroxine Sodium 88 mcg 04/03/23 [...] <Electronically signed by Turner Frank DO> 04/04/23 0508 [facility] Work Phone: 1(859) 379-347202-12-2024 Progress note Author Turner Frank [facility] April 03, 2023 7:29pm Note Date/Time April 03, 2023 7:29pm [facility] [address] [place] [address] Hospitalist Progress Note Signed Patient: Hiram Madrid MR#: [id number] : 1935 Acct:[id number] Age/Sex: 87 / F Adm Date: 4 Loc: Room: [address] [place] [address] Type: ADM IN Attending Dr: Turner Frank [...] Meq Kcl IV 04/01/24 20:29 75 mls/hr .[id number] [place] Administration Levothyroxine Sodium 88 mcg 04/03/23 [...] <Electronically signed by Turner Frank DO> 04/03/231928 [facility] Work Phone: 1(155) 286-561402-12-2024 Consult note Author Gaudencio Romero [facility] April 03, 2023 2:07pm Note Date/Time April 03, 2023 2:07pm [facility] [address] [place] [address] Nephrology Consult Note Signed Patient: Hiram Madrid MR#: [id number] : 1935 Acct:[id number] Age/Sex: 87 / F Adm Date: 4 Loc: Room: [address] [place] [address] Type: ADM IN Attending Dr: Turner Frank DO Copies to: MD Gaudencio Pickering MD Michael R. Frings, DO~ Providers Consult Date: 04/03/23 Requesting Provider: Turner Frank DO Primary Care Provider: Addy Daniels MD [facility] Reason for Consult: Hyponatremia, sodium 117 on admission History of Present Illness: Ms. Madrid is an 87-year-old white female was transferred from [facility] on 04/02/23 for hyponatremia. Patient did complain for nausea with no vomiting or diarrhea. She had back pain and other vague symptoms that prompted her to go [facility]. ER lab showed sodium 116, potassium 2.3 and magnesium 1.6. Otherlabs unremarkable including creatinine 0.7 mg/dL. EKG showed normal sinus rhythm at 86/min with right bundle branch block. Patient was given 2 g magnesium in the emergency room and subsequently was transferred to [facility] for further management. On arrival, patient was placed on gentle hydration with normal saline with 20 mEq potassium chloride at rate of75 cc/h. Review of his records showed that the patient has a chronic hyponatremia for almost a year however she never seen folder machine adjuster. Sodium has been running in the 120s. [...] has no ascites or edema. Lab at [facility] showed TSH 5.6, urine osmolality 298 and urine sodium 79 mmol/L Review of her medications showed that the patient was on amlodipine, losartan, potassium supplement and hydrochlorothiazide 25 mg daily. She also takes magnesium oxide 400 mg twice a day. No SSRI. Review of Systems Review of Systems All other systems reviewed & are negative unless noted below or in HPI [facility] Medical History (Updated 04/03/23 @ [...] Surgical History (Updated 02/01/23 @ 14:30 by Leondra music Mn) History of tonsillectomy Problem List clean-up per [...] 10 Mg Tablet) 10 mg PO DAILY [facility] Stop: 04/02/24 08:59 Last Admin: 04/03/23 08:58 Dose: 10 mg Docusate Sodium (Docusate 100 Mg Capsule) 200 mg PO BID PRN PRN Reason: Constipation Stop: 04/01/24 19:57 Docusate Sodium (Docusate 100 Mg Capsule) 200 mg PO BID [facility] Stop: 04/02/24 08:59 Last Admin: 04/03/23 08:58 Dose: Not Given Hydralazine HCl (Hydralazine 20 Mg/Ml Vial) 10 mg IV-PUSH Q4H PRN PRN Reason: if SBP > 185 Stop: 04/01/24 19:57 Potassium Chloride/Sodium Chloride (0.9 % Nacl-20 Meq Kcl) 1,000 mls @ 75 mls/hr IV .[id number] [facility] Stop: 04/01/24 20:29 Last Admin: 04/02/23 21:56 Dose: 75 mls/hr Levothyroxine Sodium (Levothyroxine 88 Mcg Tablet) 88 mcg PO DAILY@0630 [facility] Stop: 04/02/24 06:29 Last Admin: 04/03/23 05:54 Dose: 88 mcg Losartan Potassium (Losartan 50 Mg Tablet) 100 mg PO DAILY [facility] Stop: 04/02/24 08:59 Last Admin: 04/03/23 08:58 Dose: 100 mg Pravastatin Sodium (Pravastatin 40 Mg Tablet) 80 mg PO DAILY [facility] Stop: 04/02/24 08:59 Last Admin: 04/03/23 08:58 [...] 01:50 04:48 MCHC 35.8 H (32.0-35.0) g/dL [place] # (Auto) 1.1 H (0.0-0.8) x10E3/uL Sodium [...] 04/03/23 Range/Units 08:00 10:38 MCHC (32.0-35.0) g/dL [place] # (Auto) (0.0-0.8) x10E3/uL Sodium 118 L* [...] stay Documented By: Gaudencio Romero MD 04/03/23 6018 Signed By: <Electronically signed by MD Gaudencio Romero> 04/03/23 0095 [facility] Work Phone: 1(741) 101-830402-11-2024 History and physical note Author Natividad Gregory [facility] April 02, 2023 8:22pm Note Date/Time April 02, 2023 8:06pm [facility] [address] [place] [address] Hospitalist H&P Signed Patient: Hiram Madrid MR#: [id number] : 1935 Acct:[id number] Age/Sex: 87 / F Adm Date: 4 Loc: Room: [address] [place] [address] Type: ADM IN Attending Dr: Lucy Lockhart MD Copies to: MD Lucy Pickering MD Ruta Semaskiene, MD~ HPI DATE OF EXAMINATION: 04/02/23 CHIEF COMPLAINT: Hyponatremia HISTORY OF PRESENT ILLNESS: 87 years old female was transferred from [facility] for hyponatremia. Itseems like the patient [...] days ago she has been admitted to [facility] and discharged. Since then she still [...] Previous records in the computer system reviewed [facility] Medical History (Updated 04/02/23 @ [...] Surgical History (Updated 02/01/23 @ 14:30 by Leondra music Mn) History of tonsillectomy Problem List clean-up per [...] <Electronically signed by Natividad Gregory MD> 04/02/232021 [facility] Work Phone: 1(119) 527-288411-22-2023 NoteNoted 7 beat run of NSVT on 1 week holter monitor, along with SVT, PVCs Recommended to continue coreg 25 mg bid, will place 30 day monitor, and obtain treadmill cardiolite stress test for ischemic evaluation.[facility]11-22-2023 NotePt reports that she has had 5 syncopal episodes since this Summer- some while having a BM, and other episodes while just up and walking.[facility]11-22-2023 NoteWill monitor with routine echocardiogram annually unless pt has concerning symptomsUnSalem [facility]11-22-2023 NoteRecommended to continue ASA and pravastatinUnSalem City Hospital11-22-2023 Note Hypertension is stable Reviewed B/P log and typically in the mornings her b/p with well controlled 120's/70-80, and in the evenings can be up to 140/80 Continue all meds and will add toprolUnSalem City Hospital 01-11-2023 NoteContinue pravastatinUnSalem City Hospital11-22-2023 NoteWill monitor with routine echocardiogram annually unless pt has concerning symptomsUnSalem City Hospital11-22-2023 NoteWill monitor with routine echocardiogram annually unless pt has concerning symptomsUnSalem City Hospital11-22-2023 NotePatient here for 3 mo follow up valve disorder and carotid artery stenosis. She has had a few episodes of syncope since last visit. She recently wore Holter monitor. Says Dr. Daniels wants to add metoprolol but she does not want to add another medication. Review of Systems Cardiovascular: Positive for syncope. Hematologic/Lymphatic: Bruises/bleeds easily. All other systems reviewed and are negative.[facility] 01-11-2023 NoteUTP CARDIOLOGY PROGRESS NOTE HPI: [...] called and was evaluated in ED at [facility]. Admits she has had a couple syncopal episodes in the bathroom while having a BM- last one was at [facility]. States she also has had a couple while just up and walking- normal Day to Day activity. Daughter states that pt is usually out for about 1 minute. Of note patient was direct admitted to the [facility] end of August for electrolyte imbalances low sodium, low potassium, and acute anemia. She was evaluated at [facility] in October for ABD pain/ syncope, and [...] The patient states she was shopping in [employer] when she felt the need to have [...] a colonoscopy approximately 5 years ago at [facility]. HPI - Altered Mental Status [...] was someone in the bathroom in the anglic[place] and she have to go back and [...] tablet 3 levothyroxine (Syn (more content not included)...[facility]11-02-2023 Hospital Discharge instructions Patient Education 12/22/2022 [...] transplant. Follow these instructions at home: Take dmgv-tvp-chwjqbm and prescription medicines only as told by [...] provider. Document Revised: 05/26/2020 Document Reviewed: 05/26/2020 [employer] Patient Education 2022 [employer]. Follow Up Care 09/06/2022 13:10:43 With:ABHISHEK ONONAN, MIKAYLA Pereira, URL Address: [address] [place] [address] [phone] When: Unknown Comments:6 mos w/ renal fxn [...] needs to call for appointment Lesly Alaniz NP Division of Cardiology, [facility]- [phone] Pager- [phone] Email- [email or web address] hospitalUn[facility]08-25-2023 NoteStable and non pitting currentlyUnSalem City Hospital 10-14-2022 NoteCurrently stable Pt to call for any recurrent syncope or concernsUnSalem City Hospital08-25-2023 NoteMild on recent echo No concerning symptomsUnSalem City Hospital08-25-2023 NoteContinue ASA and statinUnSalem City Hospital08-25-2023 NoteHypertension is uncontrolled 160/75- admits this is where her b/p is at home Increase coreg to 25 mg bid, continue losartan 100 mg, hydrochlorothiazide 25 mg, and amlodipine 10 mgUnSalem City Hospital08-25-2023 Note Continue pravastatinUnSalem City Hospital08-25-2023 NoteNo concerning symptoms Will continue to monitor with echocardiogramUnSalem City Hospital 10-14-2022 NoteNo concerning symptoms Will continue to monitor with echocardiogramUnSalem City Hospital 10-14-2022 NotePatient here c/o LE edema. Says today they aren't as bad, but she states they're hard and sometimes painful. She has not had lab work since [facility] stay in July 2022. She denies chest pain, lightheadedness, and palpitations. Review of Systems Cardiovascular: Positive for dyspnea on exertion and leg swelling. Hematologic/Lymphatic: Bruises/bleeds easily. All other systems reviewed and are negative.[facility] [facility] 10-14-2022 NoteUTP CARDIOLOGY PROGRESS NOTE HPI: [...] note patient was direct admitted to the [facility] end of August for electrolyte imbalances [...] Stable and non pitting currently RTC [facility] [facility] Chief [...] dominic (more content not included)... [facility] No data available for this section [facility] Future Appointments Appointment Date:06/29/2023 09:30:00 AM Scheduled Provider:MIKAYLA WEISS PA-C Location:[facility] Appointment Type:URO Office Visit [facility] Evaluation noteNo assessment information available [facility] Work Phone: Evaluation note* Diagnosis Onset Date Resolution Status HTN (hypertension) acute Hyponatremia acute [facility] Work Phone: Hospital Discharge instructions No data available for this section [facility] Additional Instructions Take Naprosyn [...] any fevers or chills or intractable nausea vomiting.[facility] Work Phone: Progress note No data available for this section [facility] Summary Purpose Family History No Family History Records Found Relationship Condition Age at Onset Recorded Date/T cullen father Unknown Not Specified Unknown Advance Directives No Advanced Directives Records FoundDocuments on File Type Date Recorded Patient Drum Printer Expl anation Advance Directives and Living Will Power of Harvest Worker Fruit Latest Code Status on File Code Status Date Activated Date Inactivated Comments Full Code 11/05/2018 6:34 PM Full Code 11/04/2018 5:08 PM 11/05/2018 6:34 PM Documents on File Type Date Recorded Patient Drum Printer Expl anation Advance Directives and Livin g Will Advance Directives and Livin g Will 11/06/2018 1:08 AM AD info sheets Power of Harvest Worker Fruit Latest Code Status on File Code Status [...] sent through Care Everywhere. * Back Pain (Cymraes) documented in this encounter* Discharge Instr - [...] at most local grocery stores, pharmacies, and [employer]-stores. ? If you have any questions about [...] Contact Information Primary Emergency Contact: [facility] Mobile Relation: Spouse Secondary Emergency Contact: Liliya Townsend Mobile Relation: Child [employer] Consultant needed? No Past Surgical History: Past Surgical History: Procedure Laterality Date APPENDECTOMY BACK SURGERY CHOLECYSTECTOMY LUMBAR FUSION N/A 11/13/2018 PLIF L 3-4-5 DECOMPRESSION L3, L4 performed by Lenny Corral MD at [facility] OR [facility] AND [facility] Immunization History: There is no immunization history [...] Assisted Dressing Independent Toileting Independent Feeding Independent Liquid Flavor Compounder Independent Med Delivery whole Wound Care Documentation [...] Video (Video Swallowing Test): {Done Not Done Date:[id number]} Treatments at the Time of Hospital Discharge: Respiratory Treatments: Oxygen Therapy: is not on home oxygen therapy. Ventilator: - No ventilator support Rehab Therapies: Physical Therapy and Occupational Therapy Weight Bearing Status/Restrictions: No weight bearing restirctions Other Medical Equipment (for information only, NOT a DME order): walker Other Treatments: Patient's personal belongings (please select all that are sent with patient): {[facility] DME Belongings:[id number]} RN SIGNATURE: MANAGEMENT/SOCIAL WORK SECTION Inpatient Status Date: Patient was admitted to Inpatient Acute Rehab 11/15/18 Readmission Risk Assessment Score: Readmission Risk Risk of Unplanned Readmission: 12 Discharging to Facility/ Agency Name: Karan Sosa Address: Fax: Dialysis Facility (if applicable) Name: Address: Dialysis Schedule: Phone: Fax: Sampling Theory Teacher/Sugar Refiner signature: ICIAN SECTION Prognosis: Good Condition at [...] Date: 11/20/2018 Patient Name: Hiram Madrid Account: [id number] : 1935 (83 y.o.) Room: [place] [address] Diagnosis: Impaired mobility and gait secondary to [...] L4 performed by Lenny Corral MD at [facility] OR [facility] AND O Right Precautions: Restrictions/Precautions: Fall Risk Other position/activity [...] to increasing pain) Transfer Assistance: Independent Active Booking Police Officer: Yes Mode of Transportation: Car 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 Leisure & Hobbies: Cooking, reading, needlepoint Additional Comments: 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, has been relying more on dtr and spouse due toworsening weakness past few weeks Current Functional Status: ADL Equipment Provided: Sock aid, Logistics Loss Prevention Manager Feeding: Modified independent Grooming: Independent UE Bathing: [...] Limits Cognition Status: Cognition Overall Cognitive Status: WF Cognition Comment: [...] Yarely Gordon - 11/20/2018 12:35 PM EDT [facility] MUSIC THERAPY Date: 11/20/2018 Patient [...] 11:40am - 12:00pm SUBJECTIVE: I'd like some Surgical Theaterpel music. OBJECTIVE: [x] To Improve Mood [x] [...] interested in having music therapy again. Yarely HungALEXANDRA brorero 11/20/2018 * Roselyn Schroeder OTA - 11/20/2018 9:59 AM EDT Occupational Therapy Facility/Department: [facility] Daily Treatment Note [...] history that includes back surgery; Cholecystectomy; Appendectomy; etssa and bso (cervix removed) (Right); and lumbar [...] 11/20/2018 9:55 AM EDT Occupational Therapy Facility/Department: [facility] Daily Treatment Note [...] device (slide rail) Walk: 6 - Modified [place] Walks at least 150 feet with an ambulatory device, orthosis or prosthesis OR requires extra amount of time OR there is concern for safety Distance Walked: 200' Wheel Chair: 0 - Activity Not Assessed/Does Not Occur Stairs: 6 - Modified [place] Safely goes up and down at least [...] from Dr. Ellis Holguin D.O., PM&R Attending [phone] [place] [address] [place] * Khanh White LPN - 11/19/2018 6:00 [...] 11/19/2018 2:05 PM EDT Occupational Therapy Facility/Department: [facility] Daily Treatment Note [...] EDT Physical Therapy Rehab Treatment Note Facility/Department: [facility] Room: R238/R238-01 NAME: [...] Unit/Bed: R238/R238-01 Date of : 1935 Acct: [id number] Admitting Diagnosis: Impaired mobility [Z74.09] Spinal stenosis [...] and tentative discharge home tomorrow. Follows with sports fitness and wellness director in [place]. 11/18/18: called by staffing mgr regarding tachycardia. Pt was unaware of tachycardia. [...] to have + orthostatics. Denies hx of MA, CHF or arrhythmia. Follows with a sports fitness and wellness director from [place] for carotid artery disease and cardiac murmur. [...] to DC home and F/U with regular sports fitness and wellness director as outpatient Attending Supervising Physician's Attestation Statement The patient is a 83 y.o. female. I have performed a history and physical examination of the patient. I discussed the case with the physician security assistant. I reviewed the patient's Past Medical History, Past Surgical History, Medications, and Allergies. Physical Exam: Vitals: 11/18/18 0810 11/18/18 1129 11/18/18 1953 11/19/18 0733 BP: (!) 145/71 (!) 147/70 (!) 165/72 Pulse: 97 74 83 83 Resp: Temp: 98 F (36.7 C) 98 F [...] EDT Physical Therapy Rehab Treatment Note Facility/Department: [facility] Room: [place] [address]- NAME: Hiram Madrid : 1935 (83 y.o.) [...] EDT Physical Therapy Rehab Treatment Note Facility/Department: [facility] Room: R238/R238-01 NAME: [...] Neuromuscular Education Neuromuscular Comments: Pizano Initiated: other WRAPPER LAYER finished it: pt scored a 42/56. Bed [...] education: 10 Therapeutic ex: 0 Mikayla Lindsey WRAPPER LAYER, 11/19/18 at 11:59 AM * Khanh White LPN - 11/19/2018 9:15 AM EDT Assessment completed. Medicated with Percocet for 10/10 pain in lower back and left leg. Removed old drsg from lower back. Noted a scant amount of serosanguinous drainage. [place] intact. Sutures at lower part of incision intact. Cleanse incision with NS. Applied Neosporin oint to incision. Applied DSD. No back brace per Dr Corral. Call light in reach. Will continue to monitor. * Lenny Corral MD - 11/19/2018 8:23 AM EDT Patient: Hiram Madrid Unit/Bed: R238/R238-01 Date of : 1935 Acct: [id number] Admitting Diagnosis: Impaired mobility [Z74.09] Spinal stenosis of lumbosacral region [M48.07] Admit Date: 11/15/2018 Hospital Day: 4 Current Medications: Scheduled Meds: cephALEXin 500 mg Oral 3 times per day huowrhzs-xvmgiuxhjh-lbqlhhydy Topical BID enoxaparin 30 mg Subcutaneous Daily [...] woman from homewith spouse who presents to [facility] with the above deficits which impact her [...] ms QTc Calculation (Bazett) 463 ms P [place] 58 degrees R [place] -11 degrees T [place] 5 degrees Xr Chest Standard (2 Vw) [...] from Dr. Ellis Holguin D.O., PM&R Attending [phone] [facility] [place] * Rachael Graf LPN - 11/18/2018 4:39 [...] and no guarding. Musculoskeletal: Back: Urine Culture [[id number]] Collected: 11/15/18 1905 Order Status: Completed Specimen: Urine, clean catch Updated: 11/17/18 0728 Urine Culture, Routine No growth 24 hours Narrative: ORDERED BY: ADDY COKER SOURCE: Urine Clean Catch COLLECTED: 11/15/18 19:05 ANTIBIOTICS AT DI.: RECEIVED : 11/15/18 19:05 Culture Blood #2 [[id number]] Collected: 11/15/18 1637 Order Status: Completed Specimen: Blood Updated: 11/16/18 1815 Culture, Blood 2 No Growth to date. Any change in status will be called. Narrative: ORDERED BY: ADDY COKER SOURCE: Blood COLLECTED: 11/15/18 16:37 ANTIBIOTICS AT DI.: RECEIVED : 11/15/18 16:42 Culture Blood #1 [[id number]] Collected: 11/15/18 1637 Order Status: Completed Specimen: [...] EDT Progress Note Patient: Hiram Madrid Unit/Bed: [facility]/R238-01 Date of : 1935 Acct: [id number] Admitting Diagnosis: Impaired mobility [Z74.09] Spinal stenosis [...] L4 performed by Lenny Corral MD at [facility] OR [facility] AND [facility] Right History reviewed. No pertinent [...] on phone: None Gets together: None Attends caodaism service: None Active member of club or organization: None Attends meetings of clubs or organizations: None Relationship status: None Intimate partner violence: Fear of current or ex partner: None Emotionally abused: None Physically abused: None Forced sexual activity: None Other Topics Concern None Social History Narrative None Subjective/HPI: called by staffing mgr regarding tachycardia. Pt was unaware of tachycardia. [...] woman from homewith spouse who presents to [facility] with the above deficits which impact her [...] up labs. Blanca Holguin D.O., PM&R Attending [phone] [place] [address] [place] * Dana Craig RN - 11/17/2018 5:45 PM EDT Monitor room called, said pt had about 18 sec run of svt up to 218; notified cardio. * Faye Summers PTA - 11/17/2018 4:07 PM EDT Physical Therapy Rehab Treatment Note Facility/Department: [facility] Room: [place] [address]- NAME: Hiram Madrid : 1935 (83 y.o.) [...] Will continue to monitor. * Roselyn Schroeder, CARLA - 11/17/2018 2:51 PM EDT Occupational Therapy Facility/Department: [facility] Daily Treatment Note [...] EDT Physical Therapy Rehab Treatment Note Facility/Department: [facility]: Hiram Madrid : 1935 (83 [...] EDT Physical Therapy Rehab Treatment Note Facility/Department: [facility] NAME: Hiram Madrid : 1935 (83 [...] 11/17/2018 8:43 AM EDT Occupational Therapy Facility/Department: [facility] Daily Treatment Note [...] at below status. ADL Equipment Provided: Sock aid;Logistics Loss Prevention Manager Grooming: Independent UE Bathing: Setup LE Bathing: [...] woman from homewith spouse who presents to [facility] with the above deficits which impact her [...] consult,check dopplers Blanca Holguin D.O., PM&R Attending [phone] [facility] [place] * Jessica Irvin, OTR/L - 11/16/2018 4:14 PM EDT Occupational Therapy Facility/Department: [facility] Daily Treatment Note NAME: Hiram Madrid : 1935 Date of Service: 11/16/2018 Discharge Recommendations: Continue to assess pending progress OT Equipment Recommendations Other: Continue to assess Assessment Performance deficits / Impairments: Decreased functional mobility ;Decreased ADL status;Decreased strength;Decreased balance;Decreased endurance;Decreased high- level IADLs Assessment: Pt. is an 83 year old woman from home with spouse who presents to [facility] with the above deficits which impact her [...] Pain: Yes Objective The patient completed the [facility] Mental Status (UMS) Examination on this date, [...] Time Out 1400 Minutes 25 Jessica Irvin OTR/L * Lenny Corral MD - 11/16/2018 4:04 PM EDT Patient: Hiram Madrid Unit/Bed: [facility]/R238-01 Date of : 1935 Acct: [id number] Admitting Diagnosis: Impaired mobility [Z74.09] Spinal stenosis of lumbosacral region [M48.07] Admit Date: 11/15/2018 Hospital Day: 1 Current Medications: Scheduled Meds: [START ON 11/17/2018] enoxaparin 40 mg Subcutaneous Daily titibnpt-niqpjbdnff-lpuroczia Topical BID docusate sodium 100 mg Oral [...] Recommend Lovenox. Dressing changed. Bacitracin ointment. * MariselaDulce orlando, - 11/16/2018 3:40 PM EDT CC: Syncope [...] to have + orthostatics. Denies hx of MA, CHF or arrhythmia. Follows with a sports fitness and wellness director from [place] for carotid artery disease and cardiac murmur. [...] L4 performed by Lenny Corral MD at [facility] OR [facility] AND B[facility] Right Social History Social History [...] on phone: None Gets together: None Attends caodaism service: None Active member of club or [...] 100 mg Oral BID Shyla Renato Vizcaino TISSUE PACKER - TRUMPET TEACHER famotidine (PEPCID) tablet 20 mg 20 mg Oral BID Shyla Renato Vizcaino TISSUE PACKER - TRUMPET TEACHER [START ON 11/16/2018] amLODIPine (NORVASC) tablet 10 mg 10 mg Oral Daily Shyla Renato Vizcaino TISSUE PACKER - TRUMPET TEACHER [START ON 11/16/2018] aspirin EC tablet 81 mg 81 mg Oral Daily Shyla T EDY Vizcaino - TRUMPET TEACHER cephALEXin (KEFLEX) capsule 500 mg 500 mg Oral 3 times per day Shyla Renato EDY Vizcaino - TRUMPET TEACHER gabapentin (NEURONTIN) capsule 100 mg 100 mg Oral TID Shyla Renato EDY Vizcaino - TRUMPET TEACHER [START ON 11/16/2018] levothyroxine (SYNTHROID) tablet 88 mcg 88 mcg Oral Daily Shyla Gross EDY Vizcaino- MK [START ON 11/16/2018] losartan (COZAAR) tablet 100 mg 100 mg Oral Daily Shyla T EDY Vizcaino - MK oxyCODONE-acetaminophen (PERCOCET) 5-325 MG per tablet 1 tablet 1 tablet Oral Q4H PRN Shyla Renato EDY Vizcaino - MK potassium chloride (KLOR-CON) packet 20 mEq 20 mEq Oral BID Shyla Gross EDY Vizcaino - MK pravastatin (PRAVACHOL) tablet 80 mg 80 mg Oral Daily Shyla T EDY Vizcaino - MK polyethylene glycol (GLYCOLAX) packet 17 g 17 [...] tele 7. GI/DVT proph * Mikayla Lindsey, WRAPPER LAYER - 11/16/2018 2:04 PM EDT Physical Therapy Rehab Treatment Note Facility/Department: [facility] Room: R238/R238-01 NAME: [...] education: 0 Therapeutic ex: 23 Mikayla Lindsey WRAPPER LAYER, 11/16/18 at 3:57 PM * Rhiannon Blank [...] from home with spouse who presents to [facility] with the above deficits which impact her [...] to increasing pain) Transfer Assistance: Independent Active Booking Police Officer: Yes Mode of Transportation: Car Type of [...] And Coordinated: Yes Cognition Overall Cognitive Status: [facility] Cognition Comment: Comprehension: 7, Expression: 7, Social Interaction: 7, Problem-Solvin, Memory: 6 Perception Overall Perceptual Status: [facility] Sensation Overall Sensation Status: [facility] ROM LUE AROM (degrees) LUE AROM : [...] supervising OTR/L STIANO Lee/Lloyd * Jena Vega, WRAPPER LAYER - 11/16/2018 10:35 AM EDT Physical Therapy Rehab Treatment Note Facility/Department: [facility] Room: R238/R238-01 NAME: [...] 11/16/18 at 11:10 AM * Jessenia Gordon, NETTING WEAVER - 11/16/2018 9:35 AM EDT [facility] RECREATIONAL THERAPY Initial Evaluation [...] hearing in left ear) Patient seen at: [phone] Recreation Therapist received referral, chart reviewed and [...] her flower bed. Past leisure interests: Walking, anglican, had pets Future leisure interests: Emotional Observed/noted: Cooperative and Pleasant Affect: Appropriate Comments: Today s Session included: Increased Socialization, Provided active listening and Benefits of the patient's leisure and recreation pursuits being utilized as stress relievers Recommendations to utilize Recreation Therapy services, its supported services and groups include: [facility] Re[facility] Support Group, Pet Therapy, Leisure Education, [...] PT - 11/16/2018 8:20 AM EDT Facility/Department: [facility] Rehabilitation Initial Assessment: [facility] NAME: Hiram Madrid : 1935 Date [...] L4 performed by Lenny Corral MD at [facility] OR [facility] AND [facility] Right Chart Reviewed: Yes Patient [...] to increasing pain) Transfer Assistance: Independent Active Booking Police Officer: Yes Additional Comments: 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, [...] side to side to initiate log roll watermaster goals watermaster goal 1: pt to be indep with bed mobility watermaster goal 2: pt to be indep with bed transfers watermaster goal 3: pt to [id number] ft with supervision watermaster goal 4: pt to navigate 4 steps with SBA prison goal 5: 30/56 for Pizano balance testing ELOS: Plan weeks: 2 Therapy Time: Individual Time In 1000 Time Out 1030 Minutes 30 Lakisha Trevino, PT, 11/16/18 at 12:00 PM * Marybel Ackerman, DOCK PUMPER - 11/15/2018 11:29 PM EDT Tashia Stark [...] puffs by inhalation with spacer [] Ipratropium [place] 0.02% unit dose by aerosol Ipratropium [place] MDI 2 puffs by inhalation with spacer [] Duoneb (Ipratropium + Albuterol) unit dose by aerosol Ipratropium MDI + Albuterol MDI 2 puffs byinhalation w/spacer MDI to Aerosol [] Albuterol Sulfate MDI Albuterol Sulfate 0.083% unit dose by aerosol [] Levalbuterol MDI 2 puffs by inhalation Levalbuterol 1.25 mg unit dose by aerosol [] Ipratropium [place] MDI by inhalation Ipratropium [place] 0.02% unit dose by aerosol [] Combivent (Ipratropium + Albuterol) MDI by inhalation Duoneb (Ipratropium + Albuterol) unit doseby aerosol Treatment Assessment [Frequency/Schedule]: Change frequency to: ACCUNEB Q4 PRN per Protocol, P&T, MEC Points 0 1 2 3 4 Pulmonary [...] of lumbosacral region Impaired mobility Vasovagal syncope [facility] [address] [id number] Chief Complaint and Reason for Visit Chief Complaint SYNCOPE Chief Complaint hyponatremia hyponatremia hyponatremia Reason for Visit HTN (hypertension) Hyponatremia Chief Complaint hyponatremia hyponatremia hyponatremia high bp Reason for Visit HTN (hypertension) Hyponatremia Chief Complaint hyponatremia hyponatremia hyponatremia high bp Unknown Reason for Visit HTN (hypertension) Hyponatremia Additional Source Comments INFORMATION SOURCE (unrecogn ized section and content) DATE CREATED AUTHOR 04/20/2018 [facility] DATE CREATED AUTHOR AUTHOR'S ORGANIZ ATION 11/24/2018 [facility] DATE CREATED AUTHOR AUTHOR'S ORGANIZ ATION 06/14/2022 [facility] DATE CREATED AUTHOR AUTHOR'S ORGANIZ ATION 01/13/2023 [facility] DATE CREATED AUTHOR AUTHOR'S ORGANIZ ATION 08/27/2023 [facility] DATE CREATED AUTHOR AUTHOR'S ORGANIZ ATION 09/28/2023 [facility] Reason for Visit (unrecogniz ed section and content) Reason Comments Back Pain Left low back pain r adiates down left leg. Pain flared up last monday Status Reason Specialty Diagnoses / Procedures Referre d By Contact Referred To Contact Diagnoses Intractable back pain EllisLenny H., MD [address], [address] [place] [address] [facility] Patient Care team informatio n (unrecognized section and content) Team Status: Active Member Role Status Dates Addy Daniels MD Primary Care Provider Active Team Status: Inactive Member Role Status Dates Addy Daniels MD Primary Care Provider Active Camacho Cooper DO Emergency Provider Active Team Status: Inactive Member Role Status Dates Addy Daniels MD Primary Care Provider Active Start: April 02, 2023 End: April 06, 2023 Lucy Lockhart MD Admit Provider Active Start: April 02, 2023 End: April 06, 2023 Gaudencio Romero MD Other Provider Active Start: [facility] 2023 End: April 06, 2023 KAMILA Escobar Other Provider Active Start: April 02, 2023 End: April 06, 2023 Fiona Magana MD Other Provider Active Start: [facility] 2023 End: April 06, 2023 Cachorro Real MD Other Provider Active Star t: April 02, 2023 End: April 06, 2023 Warner Sood MD Other Provider Active Start: April 02, 2023 End: April 06, 2023 Boni Choi MD Other Provider [facility]: [facility] 2023 End: April 06, 2023 Turner Frank [...] Choi MD Other Provider Active Start: F joannarurio 2023 Turner Frank DO Other Provider Active [...] Member Role Status Dates Turner Doss MD [facility] Attending Provider Active Start: June 21, 2023 [...] BE BASED ON THE PRIMARY CLINICAL RECORDS. [employer] provides no warranty or guarantee of the accuracy or completeness of information in this document.
[2023-09-29 13:45] LABS: Anion Gap 10.4; Calcium 9.1 mg/dL (8.5-10.1); Carbon Dioxide 28.7 mmol/L (21.0-32.0); Chloride 95 mmol/L (98-107); Estimated GFR (African America >60 (>=60); Estimated GFR (Non-African Ame >60 (>=60); Glucose 86 mg/dL (74-106); Potassium 4.1 mmol/L (3.5-5.1); Sodium 130 mmol/L (136-145)
[2023-10-13 12:34] LABS: BUN Creatinine Ratio 17.3; Calcium 8.9 mg/dL (8.5-10.1); Carbon Dioxide 28.3 mmol/L (21.0-32.0); Chloride 96 mmol/L (98-107); Estimated GFR (African America >60 (>=60); Estimated GFR (Non-African Ame >60 (>=60); Glucose 95 mg/dL (74-106); Potassium 4.3 mmol/L (3.5-5.1); Sodium 132 mmol/L (136-145)
== END 2023-09-29 11:54 | disposition home or self-care (01) ==
LOC: LAB 11:53
PROVIDERS: PCP Family Medicine; Visit Provider Family Medicine
DX: E87.1 Hypo-osmolality and hyponatremia (principal)
CPT/HCPCS: 36415; 80048

== ENCOUNTER 2023-10-13 11:29 | Outpatient (OUT) | payer MEDICARE, OTHER, SELFPAY ==
[2023-10-13 12:34] LABS: BUN Creatinine Ratio 17.3; Calcium 8.9 mg/dL (8.5-10.1); Carbon Dioxide 28.3 mmol/L (21.0-32.0); Chloride 96 mmol/L (98-107); Estimated GFR (African America >60 (>=60); Estimated GFR (Non-African Ame >60 (>=60); Glucose 95 mg/dL (74-106); Potassium 4.3 mmol/L (3.5-5.1); Sodium 132 mmol/L (136-145)
== END 2023-10-13 11:30 | disposition home or self-care (01) ==
LOC: LAB 11:31
PROVIDERS: PCP Family Medicine; Visit Provider Family Medicine
DX: E87.1 Hypo-osmolality and hyponatremia (principal)
CPT/HCPCS: 36415; 80048

== ENCOUNTER 2023-10-27 12:39 | Outpatient (OUT) | payer MEDICARE, OTHER, SELFPAY ==
[2023-10-27 15:07] LABS: Anion Gap 10.7; BUN Creatinine Ratio 25.7; Calcium 8.9 mg/dL (8.5-10.1); Carbon Dioxide 28.7 mmol/L (21.0-32.0); Chloride 95 mmol/L (98-107); Estimated GFR (African America >60 (>=60); Estimated GFR (Non-African Ame >60 (>=60); Glucose 78 mg/dL (74-106); Potassium 4.4 mmol/L (3.5-5.1); Sodium 130 mmol/L (136-145)
== END 2023-10-27 12:40 | disposition home or self-care (01) ==
LOC: LAB 12:40
PROVIDERS: PCP Family Medicine; Visit Provider Family Medicine
DX: E87.1 Hypo-osmolality and hyponatremia (principal)
CPT/HCPCS: 36415; 80048

== ENCOUNTER 2023-11-13 14:06 | Outpatient (OUT) | payer MEDICARE, OTHER, SELFPAY ==
[2023-11-13 15:14] LABS: Anion Gap 12.3; BUN Creatinine Ratio 17.4; Chloride 97 mmol/L (98-107); Estimated GFR (African America >60 (>=60); Estimated GFR (Non-African Ame >60 (>=60); Glucose 116 mg/dL (74-106); Potassium 4.3 mmol/L (3.5-5.1); Sodium 133 mmol/L (136-145)
== END 2023-11-13 14:07 | disposition home or self-care (01) ==
LOC: LAB 14:08
PROVIDERS: PCP Family Medicine; Visit Provider Family Medicine
DX: E87.1 Hypo-osmolality and hyponatremia (principal)
CPT/HCPCS: 36415; 80048

== ENCOUNTER 2023-11-24 10:58 | Outpatient (OUT) | payer MEDICARE, OTHER, SELFPAY ==
--- OUTSIDE RECORDS SUMMARY | 2023-11-24 11:13 | XMS_ITS | CCD ---
Author Organization [facility] CliniSyny Care Team Providers Care Product Manager Financial Services Name Role Phone PHYSICIAN, DEFAULT Admitting Unavailable [...] Care Unavailable Calista Aceves Primary Care Provider [phone] CALISTA ACEVES Primary Care Physician [phone] ADELSO, DR PADILLA Consulting Unavailable CARLAY ., DR BOLAÑOS Primary Care Unavailable ADELSO, DR PADILLA Attending Unavailable ADELSO, DR PADILLA Admitting Unavailable JEREMIAH .DR BOLAÑOS Primary Care Unavailable NEYMARMIPATHYousuf ., TYLER Attending Kerry vailable LAKSHMIPATHYousuf ., [...] CALISTA Pereira Primary Care Unavailable ACEVES, DR CALISAT Pereira Attending Unavailable ACEVES, DR CALISTA Pereira [...] [phone] DO Camacho Cooper Emergency Provider [facility] Addy Euceda Primary Care Physician VALERIE DARDEN [...] Other Provider DO Turner Frank Attending Provider [phone] MD Turner Nielsen Emergency Provider MD Addy Daniels Primary Care Provider MD Lucy Lockhart Admit Provider [phone] MD Gaudencio Romero Other Provider Ramses, VETERINARY MEDICINE DOCTOR-C Katie Other Provider Unavailable MD Fiona Magana Other Provider MD Cachorro Real Other Provider MD Warner Sood Other Provider MD Boni Choi Other Provider DO Turner Frank Attending Provider MD Turner Nielsen Emergency Provider [phone] MD Turner Doss Attending Provider [phone] Turner Nielsen Admitting Unavailable Turner Nielsen Attending Unavailable [...] Allergy 8 Hives, Eruption of skin (disorder) [place], [place] (2 sources) predniSONE Drug Allergy 7 [facility] (8 sources) atorvastatin; Translations: [atorvastatin] Drug Allergy 3 Unknown (qualifier value), Weal (disorder) [facility] (4 sources) Ibuprofen; Translations: [ibuprofen] Drug Allergy Unknown (qualifier value), Stomach ache (finding) [facility] (4 sources) Corticosteroids; Translations: [Corticosteroids (Glucocorticoids )] Allergy to substance 3 Unknown [facility] (1 source) atorvastatin Drug Allergy 4 [facility] (1 source) predniSONE Drug Allergy 4 [facility] Medications Current Medications Medication Drug Class(es) [...] Antibacterial, Polymyxin-class Antibacterial Start: 11-16-2018 End: 11-18-2018 ejcxqruu-ipgjagsmge-pxzibijf n (NEOSPORIN) ointment carvedilol 6.25 mg oral [...] Date: 04/19/23 Status: Ordered polyethylene glycol 3350 03740 mg powder for oral solution (1 source) Osmotic Laxative Start: 11-15-2018 polyethylene glycol (GLYCOLAX) packet 17 g Potassium Chloride (12 sources) Start: 08-10-2022 Potassium Chlo ride (Air-Ewxz-Mse 10) 20 mEq, Oral, TID Start Date: 08/10/22 Status: Ordered Start: 08-10-2022 Potassium Chlo ride (Xcw-Nvpo-Uwm 10) mEq, Oral, BID Start Date: 08/10/22 [...] 0 Start Date: 08/09/22 Status: Ordered sennosides, retirement 8.6 mg oral tablet (1 source) Start: [...] procedure, # 2 tab(s), Refills(s) 0, Pharmacy: [facility] 1986, 155, cm, 08/10/22 9:03:00 EDT, [...] Onset: 12-31-2021 Episodic 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 source) [facility] (current) use of aspirin; Translations: [RESIDENTIAL CURRENT USE OF ASPIRIN] Onset: 12-31-2021 Episodic 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 source) Other terminal manager (current) drug therapy; Translations: [OTH RESIDENTIAL CURRENT [...] message to PRW regarding tracking pt. 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 Chago Russo [facility] General Surgery Office/Clini c Noteon 06-28-2023 General [...] mg= 1 tab(s), Oral, Daily Potassium Chloride (Yok-Zeuj-Ivh 10), 20 mEq, Oral, TID pravastatin 80 [...] influenza virus vaccine, inactivated 12/11/2014 Recorded Normal [facility] Comment on above: Result Comment: Elec tronically Signed By: ROMARIO DUMONT, Turner Connor\Date and Time Signed: 06/28/23 15:02 EDT Pathology Noteon 06-26-2023 Pathology Note [id number] #1.00TIFF Normal [facility] Operative Reporton Operative Report [id number] #1.00TIFF Normal [facility] Carlos 06-21-2023 L Specimen: [id number] Received: 06/22/23 Status: SOUT Req Num: [id number] Spec Type: Surgical Subm Dr: Turner Doss MD FACS Tissues: A Skin-Other than Cyst, tag, debridement or plastic repair (LT CHEEK) Procedures: HE, Gross/Micro L4 Age/ Patient Sex Location Account Attending Physician Hiram Madrid 87/F [place] [id number] Turner Doss MD FACS SPEC NUM: [id number] RECD: 06/22/23 STATUS: BEST REQ NUM: [id number] DI: 06/21/[address]: Turner Doss MD FACS ENTERED: 06/22/23 [facility] DR: Lucian Avilez SPEC TYPE: Surgical [...] Changing lesion left cheek TW CPT Codes 93071 Specimen: [id number] Received: 06/22/23 Status: EBST Kandice Num: [id number] Spec Type: Surgical Subm Dr: Turner Doss MD [facility] Tissues: A Skin-Other than Cyst, tag, debridement or plastic repair (LT CHEEK) Procedures: Antonio GOYAL/Karyna L4 Patient: Hiram Madrid [id number] (Continued) Signed (signature on file) Ángel Dodson MD 06/23/23 1634 Normal [facility] Consent for Procedure/Surger bernice 05-04-2023 Consent for Procedure/Surgery [id number] #1.00TIFF [facility] Facesheeton 05-04-2023 Facesheet [id number] #1.00TIFF [facility] Ambulatory Visit Summaryon 0 05-03-2023 [...] mg DR Tab) potassium chloride (Potassium Chloride (Tlu-Baei-Gst 10)) pravastatin (pravastatin 80 mg Tab) Procedures [...] MIKAYLA WEISS PA-C Where: [facility] Physician Referralon 024 Physician Referral [id number] #1.00TIFF [facility] Physician Referralon 024 Physician Referral [id number] #1.00TIFF [facility] Laboratory - Chemistry and C hemistry - challengeon 04-12-2023 Calcium [Mass/Vol] 8.9 mg/dL [facility] Chloride [Moles/Vol] 98 mmol/L [facility] CO2 [Moles/Vol] 25.9 mmol/L [facility] Creatinine [Mass/Vol] 0.76 mg/dL [facility] Glucose [Mass/Vol] 113 mg/dL [facility] Potassium [Moles/Vol] 4.0 mmol/L [facility] Sodium [Moles/Vol] 135 mmol/L [facility] Urea nitrogen [Mass/Vol] 12.0 mg/dL [facility] Basic Metabolic Panelon 03-23 Creatinine Clr Calc Pharmacy 42.78 Normal [facility] Comment on above: Result Comment: PERF ORMED BY: [place] [address] PATHOLOGIST STAMP PRESSER GOSIA MCADAMS M.D. Performed By: #### T 4F, BMP #### [address] GFR/1.73 sq M.predicted MDRD (S/P/Bld) [Vol rate/Area] mL/min/{1.73_m2} Normal [facility] Comment on above: Performed By: #### T 4F, BMP #### [place] [address] [place] Calcium [Mass/volume] in Ser um or PlasmaOrdered By: Turner Frank on 04-05-2023 Calcium [Mass/Vol] 9.2 mg/dL Normal 8.6-10.3 [facility] Comment on above: Performed By: #### T 4F, BMP #### [facility] [address] [place] [address] [place] Carbon dioxide, total [Moles /volume] in Serum or PlasmaOrdered By: Turner Frank on 04-05-2023 CO2 [Moles/Vol] 27.7 mmol/L Normal 21.0-31.0 [facility] Comment on above: Performed By: #### T 4F, BMP #### [facility] [address] [place] [address] [place] Chloride [Moles/volume] in S willa or PlasmaOrdered By: Turner Frank on 04-05-2023 Chloride [Moles/Vol] 91 mmol/L Low 98-107 [facility] Comment on above: Performed By: #### T 4F, BMP #### [facility] [address] Creatinine [Mass/volume] in Serum or PlasmaOrdered By: Turner Frank on 04-05-2023 Creatinine [Mass/Vol] 0.56 mg/dL Low 0.60-1.20 [facility] Comment on above: Performed By: #### T 4F, BMP #### [facility] [address] Glucose [Mass/volume] in Ser um or PlasmaOrdered By: Turner Frank on 04-05-2023 Glucose [Mass/Vol] 116 mg/dL High 70-100 [facility] Comment on above: ADA recommended refe rence rangeRandom Glucose Reference Range is dependent on time and content of last meal. Glucose of more than 200 mg/dL in a nonstressed, ambulatory subject supports the diagnosis of Diabetes Mellitus. Result Comment: [place] om Glucose Reference Range is dependent on time and content of last meal. Glucose of more than 200 mg/dL in a nonstressed, ambulatory subject supports the diagnosis of Diabetes Mellitus. ADA recommended reference range Performed By: #### T 4F, BMP #### [facility] [address] [place] [address] No Panel InformationOrdered By: Turner Frank on 04-05-2023 Estimated GFR (CKD-EPI) > 60.0 mL/[facility] Creatinine Clearance (Chem 42.78 [facility] Potassium [Moles/volume] in Serum or PlasmaOrdered By: Turner Frank on 04-05-2023 Potassium [Moles/Vol] 3.5 mmol/L Normal 3.5-5.1 [facility] Comment on above: Performed By: #### T 4F, BMP #### [facility] [address] Serum or plasma anion gap de terminationOrdered By: Turner Frank on 04-05-2023 Anion gap [Moles/Vol] 14.8 mmol/L Normal 6.0-15.0 [facility] Comment on above: Performed By: #### T 4F, BMP #### [address] Sodium [Moles/volume] in Ser um or PlasmaOrdered By: Turner Frank on 04-05-2023 Sodium [Moles/Vol] 130 mmol/L Low 136-145 [facility] Comment on above: Performed By: #### T 4F, BMP #### [address] Urea nitrogen [Mass/volume] in Serum or PlasmaOrdered By: Turner Frank on 04-05-2023 Urea nitrogen [Mass/Vol] 8 mg/dL Normal 7-25 [facility] Comment on above: Performed By: #### T 4F, BMP #### [address] Basic Metabolic Panelon 03-23 Anion gap [Moles/Vol] 10.8 mmol/L Normal 6.0-15.0 [facility] Comment on above: Performed By: #### T 4F, BMP #### [address] Calcium [Mass/Vol] 9.0 mg/dL Normal 8.6-10.3 [facility] Comment on above: Performed By: #### T 4F, BMP #### [address] Chloride [Moles/Vol] 92 mmol/L Low 98-107 [facility] Comment on above: Performed By: #### T 4F, BMP #### [address] CO2 [Moles/Vol] 26.3 mmol/L Normal 21.0-31.0 [facility] Comment on above: Performed By: #### T 4F, BMP #### [place] [address] [place] Creatinine [Mass/Vol] 0.61 mg/dL Normal 0.60-1.20 [facility] Comment on above: Performed By: #### T 4F, BMP #### [place] [address] [place] Creatinine Clr Calc Pharmacy 42.78 Normal [facility] Comment on above: Result Comment: PERF ORMED BY: [place] [address] PATHOLOGIST STAMP PRESSER GOSIA MCADAMS M.D. Performed By: #### T 4F, BMP #### [place] [address] [place] GFR/1.73 sq M.predicted MDRD (S/P/Bld) [Vol rate/Area] mL/min/{1.73_m2} Normal [facility] Comment on above: Performed By: #### T 4F, BMP #### [address] Glucose [Mass/Vol] 177 mg/dL High 70-100 [facility] Comment on above: Result Comment: [place] Glucose Reference Range is dependent on time and content of last meal. Glucose of more than 200 mg/dL in a nonstressed, ambulatory subject supports the diagnosis of Diabetes Mellitus. ADA recommended reference range Performed By: #### T 4F, BMP #### [place] [address] [place] Potassium [Moles/Vol] 3.1 mmol/L Low 3.5-5.1 [facility] Comment on above: Performed By: #### T 4F, BMP #### [place] [address] [place] Sodium [Moles/Vol] 126 mmol/L Low 136-145 [facility] Comment on above: Performed By: #### T 4F, BMP #### [place] [address] [place] Urea nitrogen [Mass/Vol] 7 mg/dL Normal 7-25 [facility] Comment on above: Performed By: #### T 4F, BMP #### [place] [address] Anion gap [Moles/Vol] 10.3 mmol/L Normal 6.0-15.0 [facility] Comment on above: Performed By: #### T 4F, BMP #### [address] Calcium [Mass/Vol] 8.6 mg/dL Normal 8.6-10.3 [facility] Comment on above: Performed By: #### T 4F, BMP #### [address] Chloride [Moles/Vol] 93 mmol/L Low 98-107 [facility] Comment on above: Performed By: #### T 4F, BMP #### [address] CO2 [Moles/Vol] 27.2 mmol/L Normal 21.0-31.0 [facility] Comment on above: Performed By: #### T 4F, BMP #### [address] Creatinine [Mass/Vol] 0.59 mg/dL Low 0.60-1.20 [facility] Comment on above: Performed By: #### T 4F, BMP #### [address] Creatinine Clr Calc Pharmacy 42.39 Normal [facility] Comment on above: Performed By: #### T 4F, BMP #### [place] [address] [place] GFR/1.73 sq M.predicted MDRD (S/P/Bld) [Vol rate/Area] mL/min/{1.73_m2} Normal [facility] Comment on above: Performed By: #### T 4F, BMP #### [address] Glucose [Mass/Vol] 107 mg/dL High 70-100 [facility] Comment on above: Result Comment: [place] Glucose Reference Range is dependent on time and content of last meal. Glucose of more than 200 mg/dL in a nonstressed, ambulatory subject supports the diagnosis of Diabetes Mellitus. ADA recommended reference range Performed By: #### T 4F, BMP #### [address] Potassium [Moles/Vol] 3.5 mmol/L Normal 3.5-5.1 [facility] Comment on above: Performed By: #### T 4F, BMP #### [address] Sodium [Moles/Vol] 127 mmol/L Low 136-145 [facility] Comment on above: Performed By: #### T 4F, BMP #### [address] Urea nitrogen [Mass/Vol] 7 mg/dL Normal 7-25 [facility] Comment on above: Performed By: #### T 4F, BMP #### [address] Thyroxine (T4) free [Mass/vo lume] in Serum or PlasmaOrdered By: Turner Frank on 04-04-2023 Free T4 [Mass/Vol] 1.41 ng/dL High 0.61-1.12 [facility] Comment on above: Result Comment: PERF ORMED BY: [place] [address] PATHOLOGIST STAMP PRESSER GOSIA MCADAMS M.D. Performed By: #### T 4F, BMP #### [place] [address] [place] Alanine aminotransferase [En zymatic activity/volume] in Serum or PlasmaOrdered By: Natividad Gregory on 04-03-2023 ALT [Catalytic activity/Vol] 14 U/L Normal 7-52 [facility] Comment on above: Performed By: #### C BC, CMP #### [place] [address] [place] Albumin [Mass/volume] in Ser um or Plasma by Bromocresol green (BCG) dye binding methoOrdered By: Natividad Gregory on 04-03-2023 Albumin BCG dye [Mass/Vol] 3.7 g/dL 3.5-5.7 [facility] Alkaline phosphatase [Enzyma tic activity/volume] in Serum or PlasmaOrdered By: Natividad Gregory on 04-03-2023 ALP [Catalytic activity/Vol] 56 U/L Normal 34-104 [facility] Comment on above: Performed By: #### C BC, CMP #### [address] Aspartate aminotransferase [ Enzymatic activity/volume] in Serum or PlasmaOrdered By: Natividad Gricele on 04-03-2023 AST [Catalytic activity/Vol] 20 U/L Normal 13-39 [facility] Comment on above: Performed By: #### C BC, CMP #### [address] Automated basophil %Ordered By: Natividad Gregory on 04-03-2023 Basophils/100 WBC (Bld) 0.6 % Normal . [facility] Comment on above: Performed By: #### C BC, CMP #### [address] Automated basophil countOrde red By: Natividad Gregory on 04-03-2023 Basophils (Bld) [#/Vol] 0.1 10*3/uL Normal 0.0-0.2 [facility] Comment on above: Result Comment: PERF ORMED BY: [place] [address] PATHOLOGIST STAMP PRESSER GOSIA MCADAMS M.D. Performed By: #### C BC, CMP #### [address] Automated blood monocyte cou ntOrdered By: Natividad Gregory on 04-03-2023 Monocytes (Bld) [#/Vol] 1.1 10*3/uL High 0.0-0.8 [facility] Comment on above: Performed By: #### C BC, CMP #### [address] Automated eosinophil %Ordere d By: Natividad Gregory on 04-03-2023 Eosinophils/100 WBC (Bld) 0.8 % Normal . [facility] Comment on above: Performed By: #### C BC, CMP #### [address] Automated eosinophil countOr dered By: Natividad Gregory on 04-03-2023 Eosinophils (Bld) [#/Vol] 0.1 10*3/uL Normal 0.0-0.45 [facility] Comment on above: Performed By: #### C BC, CMP #### [address] Automated monocyte %Ordered By: Natividad Gregory on 04-03-2023 Monocytes/100 WBC (Bld) 10.3 % Normal . [facility] Comment on above: Performed By: #### C BC, CMP #### [address] Automated neutrophil %Ordere d By: Natividad Gregory on 04-03-2023 Neutrophils/100 WBC (Bld) 72.7 % Normal . [facility] Comment on above: Performed By: #### C BC, CMP #### [address] Basic Metabolic Panelon 03-23 Anion gap [Moles/Vol] 13.3 mmol/L Normal 6.0-15.0 [facility] Comment on above: Performed By: #### T 4F, BMP #### [address] Calcium [Mass/Vol] 8.9 mg/dL Normal 8.6-10.3 [facility] Comment on above: Performed By: #### T 4F, BMP #### [address] Chloride [Moles/Vol] 86 mmol/L Low 98-107 [facility] Comment on above: Performed By: #### T 4F, BMP #### [address] CO2 [Moles/Vol] 26.0 mmol/L Normal 21.0-31.0 [facility] Comment on above: Performed By: #### T 4F, BMP #### [address] Creatinine [Mass/Vol] 0.65 mg/dL Normal 0.60-1.20 [facility] Comment on above: Performed By: #### T 4F, BMP #### [place] [address] [place] Creatinine Clr Calc Pharmacy 42.39 Normal [facility] Comment on above: Result Comment: PERF ORMED BY: [place] [address] PATHOLOGIST STAMP PRESSER GOSIA MCADAMS M.D. Performed By: #### T 4F, BMP #### [place] [address] [place] GFR/1.73 sq M.predicted MDRD (S/P/Bld) [Vol rate/Area] mL/min/{1.73_m2} Normal [facility] Comment on above: Performed By: #### T 4F, BMP #### [address] Glucose [Mass/Vol] 170 mg/dL High 70-100 [facility] Comment on above: Result Comment: [facility] Glucose Reference Range is dependent on time and content of last meal. Glucose of more than 200 mg/dL in a nonstressed, ambulatory subject supports the diagnosis of Diabetes Mellitus. ADA recommended reference range Performed By: #### T 4F, BMP #### [address] Potassium [Moles/Vol] 3.3 mmol/L Low 3.5-5.1 [facility] Comment on above: Performed By: #### T 4F, BMP #### [address] Sodium [Moles/Vol] 122 mmol/L Off scale low 136-145 [facility] Comment on above: Result Comment: Crit ical Result Called to and read back by: NOT FIRST at: 04/03/2023 19:17:43 by:[id number] Performed By: #### T 4F, BMP #### [facility] [address] Urea nitrogen [Mass/Vol] 7 mg/dL Normal 7-25 [facility] Comment on above: Performed By: #### T 4F, BMP #### [facility] [address] Anion gap [Moles/Vol] 14.6 mmol/L Normal 6.0-15.0 [facility] Comment on above: Performed By: #### T 4F, BMP #### [facility] [address] Calcium [Mass/Vol] 8.8 mg/dL Normal 8.6-10.3 [facility] Comment on above: Performed By: #### T 4F, BMP #### [place] [address] [place] Chloride [Moles/Vol] 81 mmol/L Low 98-107 [facility] Comment on above: Performed By: #### T 4F, BMP #### [place] [address] [place] CO2 [Moles/Vol] 26.8 mmol/L Normal 21.0-31.0 [facility] Comment on above: Performed By: #### T 4F, BMP #### [address] Creatinine [Mass/Vol] 0.61 mg/dL Normal 0.60-1.20 [facility] Comment on above: Performed By: #### T 4F, BMP #### [facility] [address] [place] [address] [place] Creatinine Clr Calc Pharmacy 42.39 Normal [facility] Comment on above: Result Comment: PERF ORMED BY: [place] [address] PATHOLOGIST STAMP PRESSER GOSIA MCADAMS M.D. Performed By: #### T 4F, BMP #### [place] [address] [place] GFR/1.73 sq M.predicted MDRD (S/P/Bld) [Vol rate/Area] mL/min/{1.73_m2} Normal [facility] Comment on above: Performed By: #### T 4F, BMP #### [facility] [address] Glucose [Mass/Vol] 108 mg/dL High 70-100 [facility] Comment on above: Result Comment: [place] Glucose Reference Range is dependent on time and content of last meal. Glucose of more than 200 mg/dL in a nonstressed, ambulatory subject supports the diagnosis of Diabetes Mellitus. ADA recommended reference range Performed By: #### T 4F, BMP #### [address] Potassium [Moles/Vol] 3.4 mmol/L Low 3.5-5.1 [facility] Comment on above: Performed By: #### T 4F, BMP #### [place] [address] [place] Sodium [Moles/Vol] 119 mmol/L Off scale low 136-145 [facility] Comment on above: Result Comment: Crit ical Result Called to and read back by: NOT FIRST TIME CRITICAL at: 04/03/2023 14:56:28 by:SUN Performed By: #### T 4F, BMP #### [place] [address] [place] Urea nitrogen [Mass/Vol] 7 mg/dL Normal 7-25 [facility] Comment on above: Performed By: #### T 4F, BMP #### [place] [id number] [place] Anion gap [Moles/Vol] 16.6 mmol/L High 6.0-15.[address] [facility] Comment on above: Performed By: #### T 4F, BMP #### [place] [address] [place] Calcium [Mass/Vol] 9.0 mg/dL Normal 8.6-10.3 [facility] Comment on above: Performed By: #### T 4F, BMP #### [address] Chloride [Moles/Vol] 81 mmol/L Low 98-107 [facility] Comment on above: Performed By: #### T 4F, BMP #### [address] CO2 [Moles/Vol] 25.7 mmol/L Normal 21.0-31.0 [facility] Comment on above: Performed By: #### T 4F, BMP #### [address] Creatinine [Mass/Vol] 0.63 mg/dL Normal 0.60-1.20 [facility] Comment on above: Performed By: #### T 4F, BMP #### [address] Creatinine Clr Calc Pharmacy 42.39 Normal [facility] Comment on above: Result Comment: PERF ORMED BY: [place] [address] PATHOLOGIST STAMP PRESSER GOSIA MCADAMS M.D. Performed By: #### T 4F, BMP #### [address] GFR/1.73 sq M.predicted MDRD (S/P/Bld) [Vol rate/Area] mL/min/{1.73_m2} Normal [facility] Comment on above: Performed By: #### T 4F, BMP #### [address] Glucose [Mass/Vol] 123 mg/dL High 70-100 [facility] Comment on above: Result Comment: [place] Glucose Reference Range is dependent on time and content of last meal. Glucose of more than 200 mg/dL in a nonstressed, ambulatory subject supports the diagnosis of Diabetes Mellitus. ADA recommended reference range Performed By: #### T 4F, BMP #### [address] Potassium [Moles/Vol] 3.3 mmol/L Low 3.5-5.1 [facility] Comment on above: Performed By: #### T 4F, BMP #### [address] Sodium [Moles/Vol] 120 mmol/L Off scale low 136-145 [facility] Comment on above: Result Comment: Crit ical Result Called to and read back by: NOT FIRST TIME CRITICAL at: 04/03/2023 13:00:21 by:[email or web address] Performed By: #### T 4F, BMP #### [address] Urea nitrogen [Mass/Vol] 7 mg/dL Normal 7-25 [facility] Comment on above: Performed By: #### T 4F, BMP #### [address] Anion gap [Moles/Vol] 10.9 mmol/L Normal 6.0-15.0 [facility] Comment on above: Performed By: #### T 4F, BMP #### [address] Calcium [Mass/Vol] 8.6 mg/dL Normal 8.6-10.3 [facility] Comment on above: Performed By: #### T 4F, BMP #### [address] Chloride [Moles/Vol] 82 mmol/L Low 98-107 [facility] Comment on above: Performed By: #### T 4F, BMP #### [place] [address] [place] CO2 [Moles/Vol] 28.3 mmol/L Normal 21.0-31.0 [facility] Comment on above: Performed By: #### T 4F, BMP #### [place] [address] [place] Creatinine [Mass/Vol] 0.60 mg/dL Normal 0.60-1.20 [facility] Comment on above: Performed By: #### T 4F, BMP #### [place] [address] [place] Glucose [Mass/Vol] 121 mg/dL High 70-100 [facility] Comment on above: Result Comment: [place] Glucose Reference Range is dependent on time and content of last meal. Glucose of more than 200 mg/dL in a nonstressed, ambulatory subject supports the diagnosis of Diabetes Mellitus. ADA recommended reference range Performed By: #### T 4F, BMP #### [address] Potassium [Moles/Vol] 3.2 mmol/L Low 3.5-5.1 [facility] Comment on above: Performed By: #### T 4F, BMP #### [address] Sodium [Moles/Vol] 118 mmol/L Off scale low 136-145 [facility] Comment on above: Result Comment: Crit ical Result Called to and read back by: NOT FIRST TIME at: 04/03/2023 08:56:25 by:[id number] Performed By: #### T 4F, BMP #### [address] Urea nitrogen [Mass/Vol] 5 mg/dL Low 7-25 [facility] Comment on above: Performed By: #### T 4F, BMP #### [address] Anion gap [Moles/Vol] 14.1 mmol/L Normal 6.0-15.0 [facility] Comment on above: Performed By: #### T 4F, BMP #### [place] [address] [place] Calcium [Mass/Vol] 8.3 mg/dL Low 8.6-10.3 [facility] Comment on above: Performed By: #### T 4F, BMP #### [place] [address] [place] Chloride [Moles/Vol] 82 mmol/L Low 98-107 [facility] Comment on above: Performed By: #### T 4F, BMP #### [place] [address] [place] CO2 [Moles/Vol] 25.8 mmol/L Normal 21.0-31.0 [facility] Comment on above: Performed By: #### T 4F, BMP #### [address] Creatinine [Mass/Vol] 0.59 mg/dL Low 0.60-1.20 [facility] Comment on above: Performed By: #### T 4F, BMP #### [place] [address] [place] Creatinine Clr Calc Pharmacy 42.94 Normal [facility] Comment on above: Result Comment: PERF ORMED BY: [place] [address] PATHOLOGIST STAMP PRESSER GOSIA MCADAMS M.D. Performed By: #### T 4F, BMP #### [place] [address] [place] GFR/1.73 sq M.predicted MDRD (S/P/Bld) [Vol rate/Area] mL/min/{1.73_m2} Normal [facility] Comment on above: Performed By: #### T 4F, BMP #### [address] Glucose [Mass/Vol] 102 mg/dL High 70-100 [facility] Comment on above: Result Comment: [place] Glucose Reference Range is dependent on time and content of last meal. Glucose of more than 200 mg/dL in a nonstressed, ambulatory subject supports the diagnosis of Diabetes Mellitus. ADA recommended reference range Performed By: #### T 4F, BMP #### [address] Potassium [Moles/Vol] 2.9 mmol/L Off scale low 3.5-5.1 [facility] Comment on above: Result Comment: Crit ical Result Called to and read back by: TADEO BEAUCHAMP at: 04/03/2023 03:37:07 by:[id number] Performed By: #### T 4F, BMP #### [place] [address] [place] Sodium [Moles/Vol] 119 mmol/L Off scale low 136-145 [facility] Comment on above: Result Comment: Crit ical Result Called to and read back by: TADEO BEAUCHAMP at: 04/03/2023 03:37:07 by:[id number] Performed By: #### T 4F, BMP #### [address] Urea nitrogen [Mass/Vol] 6 mg/dL Low 7-25 [facility] Comment on above: Performed By: #### T 4F, BMP #### [address] Bilirubin.total [Mass/volume ] in Serum or PlasmaOrdered By: Natividad Gregory on 04-03-2023 Bilirubin [Mass/Vol] 0.7 mg/dL Normal 0.3-1.0 [facility] Comment on above: Performed By: #### C BC, CMP #### [address] Complete Blood Count Auto Di ffon 04-03-2023 Mean Corpuscular HGB Conc 35.8 g/dL High 32.0-35.0 [facility] Comment on above: Performed By: #### C BC, CMP #### [address] NRBC% 0.3 /100{WBC} Normal 0-0.5 [facility] Comment on above: Performed By: #### C BC, CMP #### [address] Comprehensive Metabolic Pane carlos 04-03-2023 Albumin [Mass/Vol] 3.7 g/dL Normal 3.5-5.7 [facility] Comment on above: Performed By: #### C BC, CMP #### [address] Anion gap [Moles/Vol] 12.9 mmol/L Normal 6.0-15.[address] [facility] Comment on above: Performed By: #### C BC, CMP #### [address] Calcium [Mass/Vol] 8.5 mg/dL Low 8.6-10.3 [facility] Comment on above: Performed By: #### C BC, CMP #### [address] Chloride [Moles/Vol] 81 mmol/L Low 98-107 [facility] Comment on above: Performed By: #### C BC, CMP #### [address] CO2 [Moles/Vol] 26.1 mmol/L Normal 21.0-31.0 [facility] Comment on above: Performed By: #### C BC, CMP #### [address] Creatinine [Mass/Vol] 0.58 mg/dL Low 0.60-1.20 [facility] Comment on above: Performed By: #### C BC, CMP #### [place] [address] [place] Creatinine Clr Calc Pharmacy 42.94 Normal [facility] Comment on above: Result Comment: PERF ORMED BY: [place] [address] PATHOLOGIST STAMP PRESSER GOSIA MCADAMS M.D. Performed By: #### C BC, CMP #### [place] [address] [place] GFR/1.73 sq M.predicted MDRD (S/P/Bld) [Vol rate/Area] mL/min/{1.73_m2} Normal [facility] Comment on above: Performed By: #### C BC, CMP #### [address] Glucose [Mass/Vol] 136 mg/dL High 70-100 [facility] Comment on above: Result Comment: [place] Glucose Reference Range is dependent on time and content of last meal. Glucose of more than 200 mg/dL in a nonstressed, ambulatory subject supports the diagnosis of Diabetes Mellitus. ADA recommended reference range Performed By: #### C BC, CMP #### [address] Potassium [Moles/Vol] 3.0 mmol/L Low 3.5-5.1 [facility] Comment on above: Performed By: #### C BC, CMP #### [address] Sodium [Moles/Vol] 117 mmol/L Off scale low 136-145 [facility] Comment on above: Result Comment: Crit ical Result Called to and read back by: EDMAR PATEL at: 04/03/2023 06:09:08 by:[id number] Performed By: #### C BC, CMP #### [address] Urea nitrogen [Mass/Vol] 6 mg/dL Low 7-25 [facility] Comment on above: Performed By: #### C BC, CMP #### [address] Erythrocyte distribution wid th [Ratio] by Automated countOrdered By: Natividad Gregory on 04-03-2023 Erythrocyte distribution width (RBC) [Ratio] 13.9 % Normal 11.9-15.3 [facility] Comment on above: Performed By: #### C BC, CMP #### [address] Erythrocytes [#/volume] in B lood by Automated countOrdered By: Natividad Gregory on 04-03-2023 RBC (Bld) [#/Vol] 4.02 10*6/uL Normal 3.60-5.00 [facility] Comment on above: Performed By: #### C BC, CMP #### [address] Hematocrit [Volume Fraction] of Blood by Automated countOrdered By: Natividad Gregory on 04-03-2023 Hematocrit (Bld) [Volume fraction] 35.5 % Normal 34.0-46.4 [facility] Comment on above: Performed By: #### C BC, CMP #### [address] Hemoglobin [Mass/volume] in BloodOrdered By: Natividad Gregory on 04-03-2023 Hemoglobin (Bld) [Mass/Vol] 12.7 g/dL Normal 11.8-15.4 [facility] Comment on above: Performed By: #### C BC, CMP #### [address] Leukocytes [#/volume] correc sofiya for nucleated erythrocytes in Blood by Automated counOrdered By: Natividad Gregory on 04-03-2023 WBC corrected for nucl RBC Auto (Bld) [#/Vol] 10.6 10*3/uL 3.8-11.6 [facility] Leukocytes [#/volume] in Blo od by Automated countOrdered By: Natividad Gregory on 04-03-2023 WBC (Bld) [#/Vol] 10.6 10*3/uL Normal 3.8-11.6 [facility] Comment on above: Performed By: #### C BC, CMP #### [place] [address] [place] Lymphocytes [#/volume] in Bl ood by Automated countOrdered By: Natividad Gregory on 04-03-2023 Lymphocytes (Bld) [#/Vol] 1.7 10*3/uL Normal 1.00-4.8 [facility] Comment on above: Performed By: #### C BC, CMP #### [place] [address] [place] Lymphocytes/100 leukocytes i n Blood by Automated countOrdered By: Natividad Gregory on 04-03-2023 Lymphocytes/100 WBC (Bld) 15.6 % Normal . [facility] Comment on above: Performed By: #### C BC, CMP #### [place] [address] [place] MCH [Entitic mass] by Automa sofiya countOrdered By: Natividad Gregory on 04-03-2023 MCH (RBC) [Entitic mass] 31.6 pg Normal 24.7-34.3 [facility] Comment on above: Performed By: #### C BC, CMP #### [address] MCHC Auto (RBC) [Mass/Vol]Or dered By: Natividad Gregory on 04-03-2023 MCHC (RBC) [Mass/Vol] 35.8 g/dL 32.0-35.0 [facility] MCV [Entitic volume] by Auto mated countOrdered By: Natividad Gregory on 04-03-2023 MCV (RBC) [Entitic vol] 88.3 fL Normal 80-100 [facility] Comment on above: Performed By: #### C BC, CMP #### [address] Neutrophils [#/volume] in Bl ood by Automated countOrdered By: Natividad Gregory on 04-03-2023 Neutrophils (Bld) [#/Vol] 7.7 10*3/uL Normal 1.8-7.7 [facility] Comment on above: Performed By: #### C BC, CMP #### [address] Nucleated erythrocytes [Pres ence] in Blood by Automated countOrdered By: Natividad Gregory on 04-03-2023 Nucleated RBC Auto Ql (Bld) 0.3 /100{WBC} 0-0.5 [facility] Platelet mean volume [Entiti c volume] in Blood by Automated countOrdered By: Natividad Gregory on 04-03-2023 Platelet mean volume (Bld) [Entitic vol] 7.0 fL Normal 6.3-10.7 [facility] Comment on above: Performed By: #### C BC, CMP #### [place] [address] [place] Platelets [#/volume] in Bloo d by Automated countOrdered By: Natividad Gregory on 04-03-2023 Platelets (Bld) [#/Vol] 424 10*3/uL Normal 150-450 [facility] Comment on above: Performed By: #### C BC, CMP #### [address] Protein [Mass/volume] in Ser um or PlasmaOrdered By: Natividad Gregory on 04-03-2023 Protein [Mass/Vol] 6.1 g/dL Low 6.4-8.9 [facility] Comment on above: Performed By: #### C BC, CMP #### [address] Serum globulin measurement b y calculation (mass/volume)Ordered By: Natividad Gregory on 04-03-2023 Globulin (S) [Mass/Vol] 2.4 g/dL Normal F [facility] Comment on above: Performed By: #### C BC, CMP #### [address] Serum or plasma albumin/glob ulin mass ratioOrdered By: Natividad Gregory on 04-03-2023 Albumin/Globulin [Mass ratio] 1.5 {ratio} Normal [facility] Comment on above: Performed By: #### C BC, CMP #### [address] Sodiumon 04-03-2023 Sodium [Moles/Vol] 124 mmol/L Off scale low 136-145 [facility] Comment on above: Result Comment: Crit ical Result Called to and read back by: SAMMIE GOULD at: 04/03/2023 22:42:55 by:[email or web address] PERFORMED BY: [place] [address] PATHOLOGIST STAMP PRESSER GOSIA MCADAMS M.D. Performed By: #### N A #### [address] Basic Metabolic Panelon 03-23 Anion gap [Moles/Vol] 12.8 mmol/L Normal 6.0-15.0 [facility] Comment on above: Performed By: #### T SH3, MG, BMP #### [address] Calcium [Mass/Vol] 8.8 mg/dL Normal 8.6-10.3 [facility] Comment on above: Performed By: #### T SH3, MG, BMP #### [facility] [address] [place] [address] [place] Chloride [Moles/Vol] 81 mmol/L Low 98-107 [facility] Comment on above: Performed By: #### T SH3, MG, BMP #### [facility] [address] CO2 [Moles/Vol] 26.3 mmol/L Normal 21.0-31.0 [facility] Comment on above: Performed By: #### T SH3, MG, BMP #### [address] Creatinine [Mass/Vol] 0.59 mg/dL Low 0.60-1.20 [facility] Comment on above: Performed By: #### T SH3, MG, BMP #### [place] [address] [place] Creatinine Clr Calc Pharmacy 42.94 Normal [facility] Comment on above: Performed By: #### T SH3, MG, BMP #### [place] [address] [place] GFR/1.73 sq M.predicted MDRD (S/P/Bld) [Vol rate/Area] mL/min/{1.73_m2} Normal [facility] Comment on above: Performed By: #### T SH3, MG, BMP #### [place] [address] [place] Glucose [Mass/Vol] 122 mg/dL High 70-100 [facility] Comment on above: Result Comment: [place] Glucose Reference Range is dependent on time and content of last meal. Glucose of more than 200 mg/dL in a nonstressed, ambulatory subject supports the diagnosis of Diabetes Mellitus. ADA recommended reference range Performed By: #### T SH3, MG, BMP #### [address] Potassium [Moles/Vol] 3.1 mmol/L Low 3.5-5.1 [facility] Comment on above: Performed By: #### T SH3, MG, BMP #### [facility] [address] [place] [address] Sodium [Moles/Vol] 117 mmol/L Off scale low 136-145 [facility] Comment on above: Result Comment: Crit ical Result Called to and read back by: GERMAIN BEAUCHAMP at: 04/02/2023 21:52:44 by:[id number] Performed By: #### T SH3, MG, BMP #### [facility] [address] [place] [address] Urea nitrogen [Mass/Vol] 7 mg/dL Normal 7-25 [facility] Comment on above: Performed By: #### T SH3, MG, BMP #### [address] Magnesium [Mass/volume] in S willa or PlasmaOrdered By: Natividad Gregory on 04-02-2023 Magnesium [Mass/Vol] 1.9 mg/dL Normal 1.9-2.7 [facility] Comment on above: Performed By: #### T SH3, MG, BMP #### [facility] [address] [place] [address] No Panel InformationOrdered By: Natividad Gregory on 04-02-2023 Urine Osmolality 298 mosm 250-900 [facility] Osmolality, Urineon 04-02-19 24 Osmolality, Urine 298 mosm Normal 250-900 [facility] Comment on above: Result Comment: PERF ORMED BY: [place] [address] PATHOLOGIST STAMP PRESSER GOSIA MCADAMS M.D. Performed By: #### U ROSMO, KERRY #### [facility] [address] [place] [address] [place] Sodium [Moles/volume] in Uri neOrdered By: Natividad Gregory on 04-02-2023 Sodium (U) [Moles/Vol] 79 mmol/L Normal [facility] Comment on above: No reference range e stablished Result Comment: No r eference range established PERFORMED BY: [facility] [address] [place] [address] PATHOLOGIST STAMP PRESSER GOSIA MCADAMS M.D. Performed By: #### U ROSMO, KERRY #### [facility] [address] [place] [id number] [facility] Thyrotropin [Units/volume] i n Serum or PlasmaOrdered By: Natividad Gregory on 04-02-2023 TSH Qn 5.76 m[IU]/L High 0.45-5.33 [facility] Comment on above: Result Comment: PERF ORMED BY: [place] [address] PATHOLOGIST STAMP PRESSER GOSIA MCADAMS M.D. Performed By: #### T 4F, BMP #### [facility] [address] [place] [address] Office Visiton 01-11-2023 Follow-up visit [id number] Hiram Madrid 1935 F Date Provider Department Center 01/11/2023 LESLY GASPAR [facility] Family History Problem Relation Age of Onset Hypertension Mother Lupus Mother Coronary artery disease Mother Heart attack Mother Hypertension Father Aneurysm Father Coronary artery disease Father Hypertension Sister Lupus Sister Family Status - Relation Status Age at Mother Father Sister Level of Service:[address] [place] OFFICE/OUTPATIENT ESTABLISHED MOD MDM 30-39 MIN Normal [facility] Lab Reportson 12-23-2022 Lab Reports [id number] #1.00TIFF Normal [facility] Urology Office/Clinic Noteon 12-23-2022 Urology Office/Clinic Note [...] Pt presented to ER due to syncope. [place] was found incidentally on CT. CT AP [...] Contact Information ABHISHEK NOONAN, MIKAYLA Pereira, URL [address] [place] [address] [phone] Additional Instructions: 6 mos w/ renal fxn [...] Tab losartan 100 mg Tab Potassium Chloride (Qyp-Akyg-Gpi 10), Oral, BID pravastatin 80 mg Tab [...] virus vaccine, (more content not included)... Normal [facility] Comment on above: Result Comment: Elec tronically Signed By: MIKAYLA WEISS PA-C\.br\Date and Time Signed: 12/23/22 12:13 EDT\.br\Electronically Co-Signed By: Jacquie Gan\.br\Date and Time Co-Signed: 12/22/22 12:27 EDT Ambulatory Visit Summaryon 1 02-21-2022 Ambulatory Visit Summary HIRAM MADRID :1935 Visit Date:12/22/2022 Ambulatory Visit Instructions Your Diagnosis Hydronephrosis, right Ureteral stenosis Tests Performed Urnls Dip Stick Auto w/o Microscopy POC 85408 US Renal -- Results Pending -- Please [...] 100 mg Tab) potassium chloride (Potassium Chloride (Slp-Kkfu-Ewb 10)) pravastatin (pravastatin 80 mg Tab) Procedures [...] MIKAYLA WEISS PA-C [facility] Patient Educationon 12-23-19 Patient Education Urology Hydronephrosis [...] Follow these instructions at home: ? Take qwmc-oll-odmjfjr and prescription medicines only as told by [...] provider. Document Revised: 05/26/2020 Document Reviewed: 05/26/2020 [employer] Patient Education ? 2022 [employer] Normal [facility] RAD - Ultrasound Reporton RAD - Ultrasound Report [id number] #1.00TIFF Normal [facility] Orders Onlyon 10-25-2022 Orders Only [id number] Hiram Madrid 1935 F Date Provider Department Center 10/25/2022 LESLY GASPAR [facility]. Family History Problem Relation Age of Onset Hypertension Mother Lupus Mother Coronary artery disease Mother Heart attack Mother Hypertension Father Aneurysm Father Coronary artery disease Father Hypertension Sister Lupus Sister Family Status - Relation Status Age at Mother Father Sister Normal [facility] 37on 10-14-2022 37 Increase coreg/carvedilol to 25 mg twice a day- you have 12.5 mg tabs now so take 2 twice a day until this bottle is gone- your next refill will be the higher dose of 25 mg bid. Have labs drawn Normal [facility] Office Visiton 10-14-2022 Follow-up visit [id number] Greta Madridkanika Rojas 1935 F Date Provider Department Center 10/14/2022 L[facility]LY GASPAR [facility] Family History Problem Relation Age of Onset Hypertension Mother Lupus Mother Coronary artery disease Mother Heart attack Mother Hypertension Father Aneurysm Father Coronary artery disease Father Hypertension Sister Lupus Sister Family Status - Relation Status Age at Mother Father Sister Level of Service:12775 [place] OFFICE/OUTPATIENT ESTABLISHED MOD MDM 30-39 MIN Normal [facility] Alanine aminotransferase [En zymatic activity/volume] in Serum or PlasmaOrdered By: Camacho Cooper on 08-05-2022 ALT [Catalytic activity/Vol] 16 U/L 7-52 [facility] Albumin [Mass/volume] in Ser um or Plasma by Bromocresol green (BCG) dye binding methoOrdered By: Camacho Cooper on 08-05-2022 Albumin BCG dye [Mass/Vol] 4.4 g/dL 3.5-5.7 [facility] Alkaline phosphatase [Enzyma tic activity/volume] in Serum or PlasmaOrdered By: Camacho Cooper on 08-05-2022 ALP [Catalytic activity/Vol] 61 U/L 34-104 [facility] Aspartate aminotransferase [ Enzymatic activity/volume] in Serum or PlasmaOrdered By: Camacho Cooper on 08-05-2022 AST [Catalytic activity/Vol] 21 U/L 13-39 [facility] Automated erythrocytes count in urine sediment (number/area)Ordered By: Camacho Cooper on 08-05-2022 RBC Auto (Urine sed) [#/Area] 0-1 [HPF] 0-4 [facility] Automated leukocytes count i n urine sediment (number/area)Ordered By: Camacho Cooper on 08-05-2022 WBC Auto (Urine sed) [#/Area] 1-2 [HPF] 0-4 [facility] Basophils Auto (Bld) [#/Vol] Ordered By: Camacho Cooper on 08-05-2022 Basophils (Bld) [#/Vol] 0.1 10*3/uL 0.0-0.2 [facility] Basophils/100 WBC Auto (Bld) Ordered By: Camacho Cooper on 08-05-2022 Basophils/100 WBC (Bld) 0.4 % . F [facility] Bilirubin Test strip Ql (U)O rdered By: Camacho Cooper on 08-05-2022 Bilirubin Ql (U) Negative Negative [facility] Bilirubin.direct [Mass/volum e] in Serum or PlasmaOrdered By: Camacho Cooper on 08-05-2022 Bilirubin.direct [Mass/Vol] 0.10 mg/dL 0.03-0.18 [facility] Bilirubin.total [Mass/volume ] in Serum or PlasmaOrdered By: Camacho Cooper on 08-05-2022 Bilirubin [Mass/Vol] 0.7 mg/dL 0.3-1.0 [facility] Calcium [Mass/volume] in Ser um or PlasmaOrdered By: Camacho Cooper on 08-05-2022 Calcium [Mass/Vol] 9.7 mg/dL 8.6-10.3 [facility] Carbon dioxide, total [Moles /volume] in Serum or PlasmaOrdered By: Camacho Cooper on 08-05-2022 CO2 [Moles/Vol] 23.2 mmol/L 21.0-31.0 [facility] Chloride [Moles/volume] in S willa or PlasmaOrdered By: Camacho Cooper on 08-05-2022 Chloride [Moles/Vol] 87 mmol/L 98-107 [facility] Color Auto (U)Ordered By: Ender Cooper on 08-05-2022 Color (U) Yellow Yellow [facility] Creatinine [Mass/volume] in Serum or PlasmaOrdered By: Camacho Cooper on 08-05-2022 Creatinine [Mass/Vol] 1.03 mg/dL 0.60-1.20 [facility] Eosinophils Auto (Bld) [#/Vo l]Ordered By: Camacho Cooper on 08-05-2022 Eosinophils (Bld) [#/Vol] 0.1 10*3/uL 0.0-0.45 [facility] Eosinophils/100 WBC Auto (Bl d)Ordered By: Camacho Cooper on 08-05-2022 Eosinophils/100 WBC (Bld) 0.6 % . [facility] Erythrocyte distribution wid th Auto (RBC) [Ratio]Ordered By: Camacho Cooper on 08-05-2022 Erythrocyte distribution width (RBC) [Ratio] 13.6 % 11.9-15.3 [facility] Globulin Calc (S) [Mass/Vol] Ordered By: Camacho Cooper on 08-05-2022 Globulin (S) [Mass/Vol] 2.9 g/dL F [facility] Glucose [Mass/volume] in Ser um or PlasmaOrdered By: Camacho Cooper on 08-05-2022 Glucose [Mass/Vol] 156 mg/dL 70-100 [facility] Comment on above: ADA recommended refe rence rangeRandom Glucose Reference Range is dependent on time and content of last meal. Glucose of more than 200 mg/dL in a nonstressed, ambulatory subject supports the diagnosis of Diabetes Mellitus. Hematocrit Auto (Bld) [Volum e fraction]Ordered By: Camacho Cooper on 08-05-2022 Hematocrit (Bld) [Volume fraction] 37.3 % 34.0-46.4 [facility] Hemoglobin [Mass/volume] in BloodOrdered By: Camacho Cooper on 08-05-2022 Hemoglobin (Bld) [Mass/Vol] 13.0 g/dL 11.8-15.4 [facility] Ketones Auto test strip (U) [Mass/Vol]Ordered By: Camacho Cooper on 08-05-2022 Ketones (U) [Mass/Vol] Negative Negative [facility] - UrinalysisOrder ed By: Camacho Cooper on 08-05-2022 Hyaline casts LM Ql (Urine sed) None seen [LPF] 0-8 [facility] Leukocytes [#/volume] correc sofiya for nucleated erythrocytes in Blood by Automated counOrdered By: Camacho Cooper on 08-05-2022 WBC corrected for nucl RBC Auto (Bld) [#/Vol] 14.2 10*3/uL 3.8-11.6 [facility] Lipase [Enzymatic activity/v olume] in Serum or PlasmaOrdered By: Camacho Cooper on 08-05-2022 Lipase [Catalytic activity/Vol] 23.0 U/L 11.0-82.0 [facility] Lymphocytes Auto (Bld) [#/Vo l]Ordered By: Camacho Cooper on 08-05-2022 Lymphocytes (Bld) [#/Vol] 3.1 10*3/uL 1.00-4.8 [facility] Lymphocytes/100 WBC Auto (Bl d)Ordered By: Camacho Cooper on 08-05-2022 Lymphocytes/100 WBC (Bld) 21.9 % . [facility] MCH Auto (RBC) [Entitic mass ]Ordered By: Camacho Cooper on 08-05-2022 MCH (RBC) [Entitic mass] 31.6 pg 24.7-34.3 [facility] MCHC Auto (RBC) [Mass/Vol]Or dered By: Camacho Cooper on 08-05-2022 MCHC (RBC) [Mass/Vol] 35.0 g/dL 32.0-35.0 [facility] MCV Auto (RBC) [Entitic vol] Ordered By: Camacho Cooper on 08-05-2022 MCV (RBC) [Entitic vol] 90.4 fL 80-100 F [facility] Monocyte distribution width [Entitic volume] in Blood by AutomatedOrdered By: Camacho Cooper on 08-05-2022 Monocyte distribution width Auto (Bld) [Entitic vol] 20.58 % 0.00-20.00 [facility] Comment on above: For adults in ED, MD W > 20.0 may be associated with a higher risk of sepsis during the first 12 hrs of hospital admission Monocytes Auto (Bld) [#/Vol] Ordered By: Camacho Cooper on 08-05-2022 Monocytes (Bld) [#/Vol] 1.4 10*3/uL 0.0-0.8 [facility] Monocytes/100 WBC Auto (Bld) Ordered By: Camacho Cooper on 08-05-2022 Monocytes/100 WBC (Bld) 9.6 % . F [facility] Neutrophils Auto (Bld) [#/Vo l]Ordered By: Camacho Cooper on 08-05-2022 Neutrophils (Bld) [#/Vol] 9.6 10*3/uL 1.8-7.7 [facility] Neutrophils/100 WBC Auto (Bl d)Ordered By: Camacho Cooper on 08-05-2022 Neutrophils/100 WBC (Bld) 67.5 % . [facility] Nitrite Test strip Ql (U)Ord ered By: Camacho Cooper on 08-05-2022 Nitrite Ql (U) Negative Negative [facility] No Panel InformationOrdered By: Camacho Cooper on 08-05-2022 Estimated GFR (CKD-EPI) 53.284 mL/Min [facility] Creatinine Clearance (Chem 35.13 [facility] Nucleated erythrocytes [Pres ence] in Blood by Automated countOrdered By: Camacho Cooper on 08-05-2022 Nucleated RBC Auto Ql (Bld) 0.1 /100{WBC} 0-0.5 [facility] Platelet mean volume Auto (B ld) [Entitic vol]Ordered By: Camacho Cooper on 08-05-2022 Platelet mean volume (Bld) [Entitic vol] 7.2 fL 6.3-10.7 [facility] Platelets Auto (Bld) [#/Vol] Ordered By: Camacho Cooper on 08-05-2022 Platelets (Bld) [#/Vol] 500 10*3/uL 150-450 [facility] Potassium [Moles/volume] in Serum or PlasmaOrdered By: Camacho Cooper on 08-05-2022 Potassium [Moles/Vol] 3.0 mmol/L 3.5-5.1 [facility] Protein Auto test strip (U) [Mass/Vol]Ordered By: Camacho Cooper on 08-05-2022 Protein (U) [Mass/Vol] Negative Negative [facility] Protein [Mass/volume] in Ser um or PlasmaOrdered By: Camacho Cooper on 08-05-2022 Protein [Mass/Vol] 7.3 g/dL 6.4-8.9 [facility] RBC Auto (Bld) [#/Vol]Ordere d By: Camacho Cooper on 08-05-2022 RBC (Bld) [#/Vol] 4.13 10*6/uL 3.60-5.00 [facility] Serum or plasma albumin/glob ulin mass ratioOrdered By: Camacho Cooper on 08-05-2022 Albumin/Globulin [Mass ratio] 1.5 {ratio} [facility] Serum or plasma anion gap de terminationOrdered By: Camacho Cooper on 08-05-2022 Anion gap [Moles/Vol] 17.8 mmol/L 6.0-15.0 [facility] Serum or plasma non-glucuron idated bilirubin measurement (mass/volume)Ordered By: Camacho Cooper on 08-05-2022 Bilirubin.indirect [Mass/Vol] 0.6 mg/dL [facility] Sodium [Moles/volume] in Ser um or PlasmaOrdered By: Camacho Cooper on 08-05-2022 Sodium [Moles/Vol] 125 mmol/L 136-145 [facility] Specific gravity Auto test s trip (U) [Rel density]Ordered By: Camacho Cooper on 08-05-2022 Specific gravity (U) [Rel density] 1.009 1.001-1.030 [facility] Squamous epithelial cells de tection in urine sediment by light microscopyOrdered By: Camacho Cooper on 08-05-2022 Epithelial cells.squamous LM Ql (Urine sed) 0-1 [HPF] 0-2 [facility] Troponin I.cardiac [Mass/vol ume] in Serum or Plasma by Detection limit <= 0.01 ng/Ordered By: Camacho Cooper on 08-05-2022 Troponin I.cardiac DL <= 0.01 ng/mL [Mass/Vol] 7.7 pg/mL 0.0-15.0 [facility] Urea nitrogen [Mass/volume] in Serum or PlasmaOrdered By: Camacho Cooper on 08-05-2022 Urea nitrogen [Mass/Vol] 12 mg/dL 7-25 [facility] Urine bacteria detection by automated methodOrdered By: aCmacho Cooper on 08-05-2022 Bacteria Auto Ql (U) None seen None Seen [facility] Urine clarity by refractomet ry automatedOrdered By: Camacho Cooper on 08-05-2022 Clarity Refractometry automated (U) Cloudy Clear [facility] Urine glucose measurement by automated test strip (mass/volume)Ordered By: Camacho Cooper on 08-05-2022 Glucose Auto test strip (U) [Mass/Vol] Normal mg/dL Normal [facility] Urine hemoglobin detection b y automated test stripOrdered By: Camacho Cooper on 08-05-2022 Hemoglobin Auto test strip Ql (U) Negative Negative [facility] Urine leukocyte esterase det ection by automated test stripOrdered By: Camacho Cooper on 08-05-2022 Leukocyte esterase Auto test strip Ql (U) 1+ Negative [facility] Urobilinogen Auto test strip (U) [Mass/Vol]Ordered By: Camacoh Cooper on 08-05-2022 Urobilinogen (U) [Mass/Vol] Normal mg/dL Normal [facility] WBC Auto (Bld) [#/Vol]Ordere d By: Camacho Cooper on 08-05-2022 WBC (Bld) [#/Vol] 14.2 10*3/uL 3.8-11.6 [facility] pH Auto test strip (U)Ordere d By: Camacho Cooper on 08-05-2022 pH (U) 7.0 [pH] 5.0-9.0 [facility] BNPon 06-13-2022 Natriuretic peptide B (Bld) [Mass/Vol] 142.0 pg/mL Normal <=1,800.0 [facility] Comment on above: Performed By: #### T PAWAN DENNISON #### [facility] [address] [place] [id number] [address] Tasha Dodson CBC AUTO DIFFon 06-13-2022 BASO # 0.1 103/ul Normal 0.0-0.1 [facility] Comment on above: Performed By: #### T PAWAN DENNISON #### [facility] [address] [place] [address] Dr. Tasha Dodson Basophils/100 WBC (Bld) 1.0 % Normal 0.2-2.0 [facility] Comment on above: Performed By: #### T SH, BMP #### [facility] [address] [place] [address] Dr. Tasha Dodson EO # 0.3 103/ul Normal 0.0-0.7 [facility] Comment on above: Performed By: #### T SH, BMP #### [facility] [address] [place] [address] Dr. Tasha Dodson Eosinophils/100 WBC (Bld) 2.6 % Normal 0.9-7.0 [facility] Comment on above: Performed By: #### T SH, BMP #### [facility] [address] [place] [address] Dr. Tasha Dodson Erythrocyte distribution width (RBC) [Ratio] 13.4 % Normal 11.0-15.0 [facility] Comment on above: Performed By: #### T SH, BMP #### [facility] [address] [place] [address] Dr. Tasha Dodson Hematocrit (Bld) [Volume fraction] 39.5 % Normal 36.0-48.0 [facility] Comment on above: Performed By: #### T SH, BMP #### [facility] [address] [place] [address] Dr. Tasha Dodson Hemoglobin (Bld) [Mass/Vol] 13.1 g/dL Normal 12.0-16.0 [facility] Comment on above: Performed By: #### T SH, BMP #### [facility] [address] [place] [address] Dr. Tasha Dodson IG # 0.07 10e3/ul Critically high 0.00-0.03 [facility] Comment on above: Performed By: #### T SH, BMP #### [facility] [address] [place] [address] Dr. Tasha Dodson IG % 0.6 % Critically high 0.0-0.5 [facility] Comment on above: Performed By: #### T SH, BMP #### [facility] [address] [place] [address] Dr. Tasha Dodson LYMPH # 2.5 103/ul Normal 1.2-3.8 [facility] Comment on above: Performed By: #### T SH, BMP #### [facility] [address] [place] [address] Dr. Tasha Dodson Lymphocytes/100 WBC (Bld) 22.9 % Normal 20.5-60.0 [facility] Comment on above: Performed By: #### T SH, BMP #### [facility] [address] [place] [address] Dr. Tasha Dodson MANUAL DIFF REQ NO Normal [facility] Comment on above: Performed By: #### T SH, BMP #### [facility] [address] [place] [address] Dr. Tasha Dodson MCH (RBC) [Entitic mass] 30.7 pg Normal 26.7-34.0 [facility] Comment on above: Performed By: #### T SH, BMP #### [facility] [address] [place] [address] Dr. Tasha Dodson MCHC (RBC) [Mass/Vol] 33.2 g/dL Normal 29.9-35.2 [facility] Comment on above: Performed By: #### T SH, BMP #### [facility] [address] [place] [address] Dr. Tasha Dodson MCV (RBC) [Entitic vol] 92.5 fL Normal 81.0-99.0 [facility] Comment on above: Performed By: #### T SH, BMP #### [facility] [address] [place] [address] Dr. Tasha Dodson MONO # 0.8 103/ul Normal 0.3-0.8 [facility] Comment on above: Performed By: #### T SH, BMP #### [facility] [address] [place] [address] Dr. Tasha Dodson Monocytes/100 WBC (Bld) 7.0 % Normal 1.7-12.0 [facility] Comment on above: Performed By: #### T SH, BMP #### [facility] [address] [address] [address] Tasha Dodson NEUT # 7.2 103/ul Critically high 1.4-6.5 [facility] Comment on above: Performed By: #### T SH, BMP #### [facility] [address] [address] [address] Tasha Dodson Neutrophils/100 WBC (Bld) 65.9 % Normal 43.0-75.0 [facility] Comment on above: Performed By: #### T SH, BMP #### [facility] [address] [address] [address] Tasha Dodson Platelet mean volume (Bld) [Entitic vol] 8.0 fL Critically low 9.5-13.5 [facility] Comment on above: Performed By: #### T SH, BMP #### [facility] [address] [place] [address] Dr. Tasha Dodson PLT 449 103/ul Normal 150-450 [facility] Comment on above: Performed By: #### T SH, BMP #### [facility] [address] [place] [address] Dr. Tasha Dodson RBC 4.27 106/ul Normal 4.20-5.40 [facility] Comment on above: Performed By: #### T SH, BMP #### [facility] [address] [place] [address] Dr. Tasha Dodson WBC 10.9 103/ul Normal 4.0-11.0 [facility] Comment on above: Performed By: #### T SH, BMP #### [facility] [address] [place] [address] Dr. Tasha Dodson FREE THYROXINE INDEX T7on FTI 3.67 Normal 1.30-4.50 [facility] Comment on above: Performed By: #### T SH, BMP #### [facility] [address] [place] [address] Dr. Tasha Dodson T3U 36.0 % Normal 30.0-39.0 [facility] Comment on above: Performed By: #### T SH, BMP #### [facility] [address] [place] [address] Dr. Tasha Dodson T4 [Mass/Vol] 10.20 ug/dL Normal 4.80-13.90 [facility] Comment on above: Performed By: #### T SH, BMP #### [facility] [address] [place] [address] Dr. Tasha Dodson PROF CHEM 8 (BAS METB)on Anion gap [Moles/Vol] 13.8 mmol/L Normal [facility] Comment on above: Performed By: #### T SH, BMP #### [facility] [address] [place] [address] Dr. Tasha Dodson Calcium [Mass/Vol] 9.8 mg/dL Normal 8.5-10.1 [facility] Comment on above: Performed By: #### T SH, BMP #### [facility] [address] [place] [address] Dr. Tasha Dodson Chloride [Moles/Vol] 95 mmol/L Critically low 98-107 [facility] Comment on above: Performed By: #### T SH, BMP #### [facility] [address] [place] [address] Dr. Tasha Dodson CO2 [Moles/Vol] 30.5 mmol/L Normal 21.0-32.0 [facility] Comment on above: Performed By: #### T SH, BMP #### [facility] [address] [place] [address] Dr. Tasha Dodson Creatinine [Mass/Vol] 0.78 mg/dL Normal 0.55-1.02 [facility] Comment on above: Performed By: #### T SH, BMP #### [facility] [address] [place] [address] Dr. Tasha Dodson EGFR-AF TURKMEN >60 Normal >=60 [facility] Comment on above: Performed By: #### T SH, BMP #### [facility] [address] [place] [address] Dr. Tasha Dodson EGFR-NON AF TURKMEN >60 Normal >=60 [facility] Comment on above: Performed By: #### T SH, BMP #### [facility] [address] [place] [address] Dr. Tasha Dodson Glucose [Mass/Vol] 108 mg/dL Critically high 74-106 [facility] Comment on above: Performed By: #### T SH, BMP #### [facility] [address] [place] [address] Dr. Tasha Dodson Potassium [Moles/Vol] 3.3 mmol/L Critically low 3.5-5.1 [facility] Comment on above: Performed By: #### T SH, BMP #### [facility] [address] [place] [address] Dr. Tasha Dodson Sodium [Moles/Vol] 136 mmol/L Normal 136-145 [facility] Comment on above: Performed By: #### T JESI, BMP #### [facility] [address] [place] [address] Dr. Tasha Dodson Urea nitrogen [Mass/Vol] 11.0 mg/dL Normal 7.0-18.0 [facility] Comment on above: Performed By: #### T JESI, BMP #### [facility] [address] [place] [address] Dr. Tasha Dodson Urea nitrogen/Creatinine [Mass ratio] 14.1 mg/mg Normal [facility] Comment on above: Performed By: #### T JESI, BMP #### [facility] [address] [place] [address] Dr. Tasha Dodson TSHon 06-13-2022 TSH 2.583 uIU/mL Normal 0.358-3.740 [facility] Comment on above: Performed By: #### T JESI, BMP #### [facility] [address] [place] [address] Dr. Tasha Dodson UA (CLEAN/CATCH) RESEARCH PROFESSOR OF BIOSTATISTICS/MICRO I F IND.on 06-13-2022 Bilirubin Ql (U) Negative Normal NEGATIVE [facility] Comment on above: Performed By: #### T JESI, BMP #### [facility] [address] [place] [address] Dr. Tasha Dodson Clarity (U) CLEAR Normal CLEAR [facility] Comment on above: Performed By: #### T SH, BMP #### [facility] [address] [place] [address] Dr. Tasha Dodson Color (U) LT. YELLOW Normal YELLOW [facility] Comment on above: Performed By: #### T SH, BMP #### [facility] [address] [place] [address] Dr. Tasha Dodson Glucose Ql (U) Negative Normal NEGATIVE [facility] Comment on above: Performed By: #### T SH, BMP #### [facility] [address] [place] [address] Dr. Tasha Dodson Hemoglobin Ql (U) Negative Normal NEGATIVE [facility] Comment on above: Performed By: #### T SH, BMP #### [facility] [address] [place] [address] Dr. Tasha Dodson Ketones Ql (U) Negative Normal NEGATIVE [facility] Comment on above: Performed By: #### T SH, BMP #### [facility] [address] [place] [address] Dr. Tasha Dodson LEUKOCYTES Negative Normal NEGATIVE [facility] Comment on above: Performed By: #### T SH, BMP #### [facility] [address] [place] [address] Dr. Tasha Dodson Nitrite Ql (U) Negative Normal NEGATIVE [facility] Comment on above: Performed By: #### T SH, BMP #### [facility] [address] [place] [address] Dr. Tasha Dodson pH (U) 7.0 [pH] Normal 5-9 [facility] Comment on above: Performed By: #### T SH, BMP #### [facility] [address] [place] [address] Dr. Tasha Dodson SPEC GRAVITY 1.010 Normal 1.005-<=1.02 5 [facility] Comment on above: Performed By: #### T SH, BMP #### [facility] [address] [place] [address] Dr. Tasha Dodson UA PROTEIN Negative Normal NEGATIVE/ TRACE [facility] Comment on above: Performed By: #### T SH, BMP #### [facility] [address] [address] [address] Tasha Dodson UR MICRO IND NOT INDICATED Normal [facility] Comment on above: Performed By: #### T SH, BMP #### [facility] [address] [place], [place] [address] Dr. Tasha Dodson Urobilinogen Qn (U) 0.2 {Juan'U}/dL Normal 0.2 - 1. 0 [facility] Comment on above: Performed By: #### T JESI, BMP #### [facility] [address] [address] [address] Tasha Dodson ECHOCARDIO M/2D COMPLETEon 0 04-18-2022 ECHOCARDIO M/2D COMPLETE Patient: HIRAM MADRID Exam Date: 04/18/2022 : 1935 Gender:F Ordering : DR VALERIE DARDEN M.D. Admission #: [id number] Family : DR ADDY DANIELS . Order #: [id number] CLICK HERE TO VIEW EXAM ECHOCARDIOGRAM REPORT [...] Barragan M.D. on 04/19/2022 at 18:55 Normal [facility] Office Visiton 04-04-2022 Follow-up visit [id number] Hiram Madrid 1935 F Date Provider Department Center 04/04/2022 Yazmin-VALERIE DARDEN [facility] Family History Problem Relation Age of Onset Hypertension Mother Lupus Mother Coronary artery disease Mother Heart attack Mother Hypertension Father Aneurysm Father Coronary artery disease Father Hypertension Sister Lupus Sister Family Status - Relation Status Age at Mother Father Sister Level of Service:26212 [place] OFFICE/OUTPATIENT ESTABLISHED MOD MDM 30-39 MIN Reason for Visit and Comments: Hyperlipidemia [182] Hypertension [465210] carotid artery stenosis [Other] 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 Tasha Dodson Basophils/100 WBC (Bld) 0.6 % Normal 0.2-2.0 [facility] Comment on above: Performed By: #### C BC #### [facility] [address] [address] [address] Tasha Dodson EO # 0.1 103/ul Normal 0.0-0.7 [facility] Comment on above: Performed By: #### C BC #### [facility] [address] [place] [address] Dr. Tasha Dodson Eosinophils/100 WBC (Bld) 0.9 % Normal 0.9-7.0 [facility] Comment on above: Performed By: #### C BC #### [facility] [address] [place] [address] Dr. Tasha Dodson Erythrocyte distribution width (RBC) [Ratio] 13.0 % Normal 11.0-15.0 [facility] Comment on above: Performed By: #### C BC #### [facility] [address] [place] [address] Dr. Tasha Dodson Hematocrit (Bld) [Volume fraction] 38.5 % Normal 36.0-48.0 [facility] Comment on above: Performed By: #### C BC #### [facility] [address] [place] [address] Dr. Tasha Dodson Hemoglobin (Bld) [Mass/Vol] 13.4 g/dL Normal 12.0-16.0 [facility] Comment on above: Performed By: #### C BC #### [facility] [address] [place] [address] Dr. Tasha Dodson IG # 0.07 10e3/ul Critically high 0.00-0.03 [facility] Comment on above: Performed By: #### C BC #### [facility] [address] [place] [address] Dr. Tasha Dodson IG % 0.5 % Normal 0.0-0.5 [facility] Comment on above: Performed By: #### C BC #### [facility] [address] [place] [address] Dr. Tasha Dodson LYMPH # 2.8 103/ul Normal 1.2-3.8 [facility] Comment on above: Performed By: #### C BC #### [facility] [address] [place] [address] Dr. Tasha Dodson Lymphocytes/100 WBC (Bld) 20.5 % Normal 20.5-60.0 [facility] Comment on above: Performed By: #### C BC #### [facility] [address] [place] [address] Dr. Tasha Dodson MANUAL DIFF REQ NO Normal [facility] Comment on above: Performed By: #### C BC #### [facility] [address] [address] [address] Tasha Dodson MCH (RBC) [Entitic mass] 30.7 pg Normal 26.7-34.0 [facility] Comment on above: Performed By: #### C BC #### [facility] [address] [place] [address] Dr. Tasha Dodson MCHC (RBC) [Mass/Vol] 34.8 g/dL Normal 29.9-35.2 [facility] Comment on above: Performed By: #### C BC #### [facility] [address] [place] [address] Dr. Tasha Dodson MCV (RBC) [Entitic vol] 88.3 fL Normal 81.0-99.0 [facility] Comment on above: Performed By: #### C BC #### [facility] [address] [place] [address] Dr. Tasha Dodson MONO # 1.0 103/ul Critically high 0.3-0.8 [facility] Comment on above: Performed By: #### C BC #### [facility] [address] [place] [address] Dr. Tasha Dodson Monocytes/100 WBC (Bld) 7.4 % Normal 1.7-12.0 [facility] Comment on above: Performed By: #### C BC #### [facility] [address] [place] [address] Dr. Tasha Dodson NEUT # 9.5 103/ul Critically high 1.4-6.5 [facility] Comment on above: Performed By: #### C BC #### [facility] [address] [place] [address] Dr. Tasha Dodson Neutrophils/100 WBC (Bld) 70.1 % Normal 43.0-75.0 [facility] Comment on above: Performed By: #### C BC #### [facility] [address] [place] [address] Dr. Tasha Dodson Platelet mean volume (Bld) [Entitic vol] 8.0 fL Critically low 9.5-13.5 [facility] Comment on above: Performed By: #### C BC #### [facility] [address] [address] [address] Tasha Dodson PLT 492 103/ul Critically high 150-[address] [facility] Comment on above: Performed By: #### C BC #### [facility] [address] [address] [address] Tasha Dodson RBC 4.36 106/ul Normal 4.20-5.40 [facility] Comment on above: Performed By: #### C BC #### [facility] [address] [address] [address] Tasha Dodson WBC 13.5 103/ul Critically high 4.0-11.0 [facility] Comment on above: Performed By: #### C BC #### [facility] [address] [place] [address] Dr. Tasha Dodson PROF 14(COMP METB)on 01-04- 022 Albumin [Mass/Vol] 3.8 g/dL Normal 3.4-5.0 [facility] Comment on above: Performed By: #### T SH, BMP #### [facility] [address] [place] [address] Dr. Tasha Dodson Albumin/Globulin [Mass ratio] 0.9 {ratio} Normal [facility] Comment on above: Performed By: #### T SH, BMP #### [facility] [address] [place] [address] Dr. Tasha Dodson ALP [Catalytic activity/Vol] 60 U/L Normal 46-116 [facility] Comment on above: Performed By: #### T SH, BMP #### [facility] [address] [place] [address] Dr. Tasha Dodson ALT [Catalytic activity/Vol] 26 U/L Normal 14-59 [facility] Comment on above: Performed By: #### T SH, BMP #### [facility] [address] [place] [address] Dr. Tasha Dodson Anion gap [Moles/Vol] 8.4 mmol/L Normal [facility] Comment on above: Performed By: #### T SH, BMP #### [facility] [address] [place] [address] Dr. Tasha Dodson AST [Catalytic activity/Vol] 19 U/L Normal 15-37 [facility] Comment on above: Performed By: #### T SH, BMP #### [facility] [address] [place] [address] Dr. Tasha Dodson Bilirubin [Mass/Vol] 0.4 mg/dL Normal 0.2-1.0 [facility] Comment on above: Performed By: #### T SH, BMP #### [facility] [address] [place] [address] Dr. Tasha Dodson Calcium [Mass/Vol] 10.1 mg/dL Normal 8.5-10.1 [facility] Comment on above: Performed By: #### T SH, BMP #### [facility] [address] [place] [address] Dr. Tasha Dodson Chloride [Moles/Vol] 92 mmol/L Critically low 98-107 [facility] Comment on above: Performed By: #### T SH, BMP #### [facility] [address] [place] [address] Dr. Tasha Dodson CO2 [Moles/Vol] 33.8 mmol/L Critically high 21.0-32.0 [facility] Comment on above: Performed By: #### T SH, BMP #### [facility] [address] [place] [address] Dr. Tasha Dodson Creatinine [Mass/Vol] 0.67 mg/dL Normal 0.55-1.02 [facility] Comment on above: Performed By: #### T SH, BMP #### [facility] [address] [place] [address] Dr. Tasha Dodson EGFR-AF TURKMEN >60 Normal >=60 [facility] Comment on above: Performed By: #### T SH, BMP #### [facility] [address] [place] [address] Dr. Tasha Dodson EGFR-NON AF TURKMEN >60 Normal >=60 [facility] Comment on above: Performed By: #### T SH, BMP #### [facility] [address] [place], [place] [id number] Dr. Tasha Dodosn Globulin (S) [Mass/Vol] 4.1 g/dL Normal [facility] Comment on above: Performed By: #### T SH, BMP #### [facility] [address] [place] [address] Dr. Tasha Dodson Glucose [Mass/Vol] 106 mg/dL Normal 74-106 [facility] Comment on above: Performed By: #### T SH, BMP #### [facility] [address] [place] [address] Dr. Tasha Dodson Potassium [Moles/Vol] 3.2 mmol/L Critically low 3.5-5.1 [facility] Comment on above: Performed By: #### T SH, BMP #### [facility] [address] [place] [address] Dr. Tasha Dodson Protein [Mass/Vol] 7.9 g/dL Normal 6.4-8.2 [facility] Comment on above: Performed By: #### T SH, BMP #### [facility] [address] [place] [address] Dr. Tasha Dodson Sodium [Moles/Vol] 131 mmol/L Critically low 136-145 [facility] Comment on above: Performed By: #### T SH, BMP #### [facility] [address] [place] [address] Dr. Tasha Dodson Urea nitrogen [Mass/Vol] 10.0 mg/dL Normal 7.0-18.0 [facility] Comment on above: Performed By: #### T SH, BMP #### [facility] [address] [place] [address] Dr. Tasha Dodson Urea nitrogen/Creatinine [Mass ratio] 14.9 mg/mg Normal [facility] Comment on above: Performed By: #### T SH, BMP #### [facility] [address] [place] [address] Dr. Tasha Dodson CBC AUTO DIFFon 12-29-2021 BASO # 0.1 103/ul Normal 0.0-0.1 [facility] Comment on above: Performed By: #### C BC #### [facility] [address] [place] [address] Dr. Tasha Dodson Basophils/100 WBC (Bld) 0.5 % Normal 0.2-2.0 [facility] Comment on above: Performed By: #### C BC #### [facility] [address] [place] [address] Dr. Tasha Dodson EO # 0.1 103/ul Normal 0.0-0.7 [facility] Comment on above: Performed By: #### C BC #### [facility] [address] [place] [address] Dr. Tasha Dodson Eosinophils/100 WBC (Bld) 0.4 % Critically low 0.9-7.0 [facility] Comment on above: Performed By: #### C BC #### [facility] [address] [place] [address] Dr. Tasha Dodson Erythrocyte distribution width (RBC) [Ratio] 13.0 % Normal 11.0-15.0 [facility] Comment on above: Performed By: #### C BC #### [facility] [address] [place] [address] Dr. Tasha Dodson Hematocrit (Bld) [Volume fraction] 34.0 % Critically low 36.0-48.0 [facility] Comment on above: Performed By: #### C BC #### [facility] [address] [place] [address] Dr. Tasha Dodson Hemoglobin (Bld) [Mass/Vol] 12.0 g/dL Normal 12.0-16.0 [facility] Comment on above: Performed By: #### C BC #### [facility] [address] [place] [address] Dr. Tasha Dodson IG # 0.06 10e3/ul Critically high 0.00-0.03 [facility] Comment on above: Performed By: #### C BC #### [facility] [address] [place] [address] Dr. Tasha Dodson IG % 0.4 % Normal 0.0-0.5 [facility] Comment on above: Performed By: #### C BC #### [facility] [address] [address] [address] Tasha Dodson LYMPH # 2.5 103/ul Normal 1.2-3.8 [facility] Comment on above: Performed By: #### C BC #### [facility] [address] [address] [address] Tasha Dodson Lymphocytes/100 WBC (Bld) 17.4 % Critically low 20.5-60.0 [facility] Comment on above: Performed By: #### C BC #### [facility] [address] [address] [address] Tasha Dodson MANUAL DIFF REQ NO Normal [facility] Comment on above: Performed By: #### C BC #### [facility] [address] [place] [address] Dr. Tasha Dodson MCH (RBC) [Entitic mass] 31.0 pg Normal 26.7-34.0 [facility] Comment on above: Performed By: #### C BC #### [facility] [address] [place] [address] Dr. Tasha Dodson MCHC (RBC) [Mass/Vol] 35.3 g/dL Critically high 29.9-35.2 [facility] Comment on above: Performed By: #### C BC #### [facility] [address] [place] [address] Dr. Tasha Dodson MCV (RBC) [Entitic vol] 87.9 fL Normal 81.0-99.0 [facility] Comment on above: Performed By: #### C BC #### [facility] [address] [place] [address] Dr. Tasha Dodson MONO # 1.0 103/ul Critically high 0.3-0.8 [facility] Comment on above: Performed By: #### C BC #### [facility] [address] [place] [address] Dr. Tasha Dodson Monocytes/100 WBC (Bld) 6.9 % Normal 1.7-12.0 [facility] Comment on above: Performed By: #### C BC #### [facility] [address] [address] [address] Tasha Dodson NEUT # 10.8 103/ul Critically high 1.4-6.5 [facility] Comment on above: Performed By: #### C BC #### [facility] [address] [id number] [address] Tasha Dodson Neutrophils/100 WBC (Bld) 74.4 % Normal 43.0-75.0 [facility] Comment on above: Performed By: #### C BC #### [facility] [address] [address] [address] Tasha Dodson Platelet mean volume (Bld) [Entitic vol] 8.4 fL Critically low 9.5-13.5 [facility] Comment on above: Performed By: #### C BC #### [facility] [address] [place] [address] Dr. Tasha Dodson PLT 370 103/ul Normal 150-450 [facility] Comment on above: Performed By: #### C BC #### [facility] [address] [place] [address] Dr. Tasha Dodson RBC 3.87 106/ul Critically low 4.20-5.40 [facility] Comment on above: Performed By: #### C BC #### [facility] [address] [place] [address] Dr. Tasha Dodson WBC 14.5 103/ul Critically high 4.0-11.0 [facility] Comment on above: Performed By: #### C BC #### [facility] [address] [place] [address] Dr. Tasha Dodson PROF 14(COMP METB)on 022 Albumin [Mass/Vol] 2.8 g/dL Critically low 3.4-5.0 [facility] Comment on above: Performed By: #### T JESI, BMP #### [facility] [address] [place] [address] Dr. Tasha Dodson Albumin/Globulin [Mass ratio] 0.9 {ratio} Normal [facility] Comment on above: Performed By: #### T JESI, BMP #### [facility] [address] [address] [address] Tasha Dodson ALP [Catalytic activity/Vol] 51 U/L Normal 46-116 [facility] Comment on above: Performed By: #### T SH, BMP #### [facility] [address] [address] [address] Tasha Dodson ALT [Catalytic activity/Vol] 15 U/L Normal 14-59 [facility] Comment on above: Performed By: #### T SH, BMP #### [facility] [address] [address] [address] Tasha Dodson Anion gap [Moles/Vol] 9.7 mmol/L Normal [facility] Comment on above: Performed By: #### T SH, BMP #### [facility] [address] [address] [address] Tasha Dodson AST [Catalytic activity/Vol] 15 U/L Normal 15-37 [facility] Comment on above: Performed By: #### T JESI, BMP #### [facility] [address] [address] [address] Tasha Dodson Bilirubin [Mass/Vol] 0.4 mg/dL Normal 0.2-1.0 [facility] Comment on above: Performed By: #### T JESI, BMP #### [facility] [address] [address] [address] Tasha Dodson Calcium [Mass/Vol] 8.6 mg/dL Normal 8.5-10.1 [facility] Comment on above: Performed By: #### T SH, BMP #### [facility] [address] [address] [address] Tasha Dodson Chloride [Moles/Vol] 97 mmol/L Critically low 98-107 [facility] Comment on above: Performed By: #### T SH, BMP #### [facility] [address] [address] [address] Tasha Dodson CO2 [Moles/Vol] 25.8 mmol/L Normal 21.0-32.0 [facility] Comment on above: Performed By: #### T SH, BMP #### [facility] [address] [address] [address] Tasha Dodson Creatinine [Mass/Vol] 0.52 mg/dL Critically low 0.55-1.02 [facility] Comment on above: Performed By: #### T SH, BMP #### [facility] [address] [address] [address] Tasha Dodson EGFR-AF TURKMEN >60 Normal >=60 [facility] Comment on above: Performed By: #### T SH, BMP #### [facility] [address] [place] [address] Dr. Tasha Dodson EGFR-NON AF TURKMEN >60 Normal >=60 [facility] Comment on above: Performed By: #### T SH, BMP #### [facility] [address] [place] [address] Dr. Tasha Dodson Globulin (S) [Mass/Vol] 3.2 g/dL Normal [facility] Comment on above: Performed By: #### T SH, BMP #### [facility] [address] [place] [address] Dr. Tasha Dodson Glucose [Mass/Vol] 117 mg/dL Critically high 74-106 [facility] Comment on above: Performed By: #### T SH, BMP #### [facility] [address] [place] [address] Dr. Tasha Dodson Potassium [Moles/Vol] 3.5 mmol/L Normal 3.5-5.1 [facility] Comment on above: Performed By: #### T SH, BMP #### [facility] [address] [place] [address] Dr. Tasha Dodson Protein [Mass/Vol] 6.0 g/dL Critically low 6.4-8.2 [facility] Comment on above: Performed By: #### T SH, BMP #### [facility] [address] [place] [address] Dr. Tasha Dodson Sodium [Moles/Vol] 129 mmol/L Critically low 136-145 [facility] Comment on above: Performed By: #### T SH, BMP #### [facility] [address] [place] [address] Dr. Tasha Dodson Urea nitrogen [Mass/Vol] 4.0 mg/dL Critically low 7.0-18. 0 [facility] Comment on above: Performed By: #### T SH, BMP #### [facility] [address] [place] [address] Dr. Tasha Dodson Urea nitrogen/Creatinine [Mass ratio] 7.7 mg/mg Normal [facility] Comment on above: Performed By: #### T SH, BMP #### [facility] [address] [place] [address] Dr. Tasha Dodson CBC AUTO DIFFon 12-28-2021 BASO # 0.1 103/ul Normal 0.0-0.1 [facility] Comment on above: Performed By: #### C BC #### [facility] [address] [place] [address] Dr. Tasha Dodson Basophils/100 WBC (Bld) 0.4 % Normal 0.2-2.0 [facility] Comment on above: Performed By: #### C BC #### [facility] [address] [place] [address] Dr. Tasha Dodson EO # 0.1 103/ul Normal 0.0-0.7 [facility] Comment on above: Performed By: #### C BC #### [facility] [address] [place] [address] Dr. Tasha Dodson Eosinophils/100 WBC (Bld) 0.4 % Critically low 0.9-7.0 [facility] Comment on above: Performed By: #### C BC #### [facility] [address] [place] [address] Dr. Tasha Dodson Erythrocyte distribution width (RBC) [Ratio] 12.9 % Normal 11.0-15.0 [facility] Comment on above: Performed By: #### C BC #### [facility] [address] [place] [address] Dr. Tasha Dodson Hematocrit (Bld) [Volume fraction] 34.2 % Critically low 36.0-48.0 [facility] Comment on above: Performed By: #### C BC #### [facility] [address] [address] [address] Tasha Dodson Hemoglobin (Bld) [Mass/Vol] 12.4 g/dL Normal 12.0-16.0 [facility] Comment on above: Performed By: #### C BC #### [facility] [address] [address] [address] Tasha Dodson IG # 0.09 10e3/ul Critically high 0.00-0.03 [facility] Comment on above: Performed By: #### C BC #### [facility] [address] [address] [address] Tasha Dodson IG % 0.6 % Critically high 0.0-0.5 [facility] Comment on above: Performed By: #### C BC #### [facility] [address] [place] [address] Dr. Tasha Dodson LYMPH # 2.2 103/ul Normal 1.2-3.8 [facility] Comment on above: Performed By: #### C BC #### [facility] [address] [place] [address] Dr. Tasha Dodson Lymphocytes/100 WBC (Bld) 13.6 % Critically low 20.5-60.0 [facility] Comment on above: Performed By: #### C BC #### [facility] [address] [place] [address] Dr. Tasha Dodson MANUAL DIFF REQ NO Normal [facility] Comment on above: Performed By: #### C BC #### [facility] [address] [address] [address] Tasha Dodson MCH (RBC) [Entitic mass] 31.2 pg Normal 26.7-34.0 [facility] Comment on above: Performed By: #### C BC #### [facility] [address] [place] [address] Dr. Tasha Dodson MCHC (RBC) [Mass/Vol] 36.3 g/dL Critically high 29.9-35.2 [facility] Comment on above: Performed By: #### C BC #### [facility] [address] [address] [address] Tasha Dodson MCV (RBC) [Entitic vol] 85.9 fL Normal 81.0-99.0 [facility] Comment on above: Performed By: #### C BC #### [facility] [address] [address] [address] Tasha Dodson MONO # 1.3 103/ul Critically high 0.3-0.[address] [facility] Comment on above: Performed By: #### C BC #### [facility] [address] [place] [address] Dr. Tasha Dodson Monocytes/100 WBC (Bld) 7.8 % Normal 1.7-12.0 [facility] Comment on above: Performed By: #### C BC #### [facility] [address] [place] [address] Dr. Tasha Dodson NEUT # 12.4 103/ul Critically high 1.4-6.5 [facility] Comment on above: Performed By: #### C BC #### [facility] [address] [place] [address] Dr. Tasha Dodson Neutrophils/100 WBC (Bld) 77.2 % Critically high 43.0-75.0 [facility] Comment on above: Performed By: #### C BC #### [facility] [address] [place] [address] Dr. Tasha Dodson Platelet mean volume (Bld) [Entitic vol] 8.6 fL Critically low 9.5-13.5 [facility] Comment on above: Performed By: #### C BC #### [facility] [address] [place] [address] Dr. Tasha Dodson PLT 385 103/ul Normal 150-450 [facility] Comment on above: Performed By: #### C BC #### [facility] [address] [place] [address] Dr. Tasha Dodson RBC 3.98 106/ul Critically low 4.20-5.40 [facility] Comment on above: Performed By: #### C BC #### [facility] [address] [place] [address] Dr. Tasha Dodson WBC 16.1 103/ul Critically high 4.0-11.0 [facility] Comment on above: Performed By: #### C BC #### [facility] [address] [place] [address] Dr. Tasha Dodson PROF 14(COMP METB)on 022 Albumin [Mass/Vol] 3.2 g/dL Critically low 3.4-5.0 [facility] Comment on above: Performed By: #### T SH, BMP #### [facility] [address] [place] [address] Dr. Tasha Dodson Albumin/Globulin [Mass ratio] 1.0 {ratio} Normal [facility] Comment on above: Performed By: #### T SH, BMP #### [facility] [address] [place] [address] Dr. Tasha Dodson ALP [Catalytic activity/Vol] 51 U/L Normal 46-116 [facility] Comment on above: Performed By: #### T SH, BMP #### [facility] [address] [place] [address] Dr. Tasha Dodson ALT [Catalytic activity/Vol] 17 U/L Normal 14-59 [facility] Comment on above: Performed By: #### T SH, BMP #### [facility] [address] [place] [address] Dr. Tasha Dodson Anion gap [Moles/Vol] 10.5 mmol/L Normal [facility] Comment on above: Performed By: #### T SH, BMP #### [facility] [address] [place] [address] Dr. Tasha Dodson AST [Catalytic activity/Vol] 18 U/L Normal 15-37 [facility] Comment on above: Performed By: #### T SH, BMP #### [facility] [address] [place] [address] Dr. Tasha Dodson Bilirubin [Mass/Vol] 0.4 mg/dL Normal 0.2-1.0 [facility] Comment on above: Performed By: #### T SH, BMP #### [facility] [address] [place] [address] Dr. Tasha Dodson Calcium [Mass/Vol] 8.3 mg/dL Critically low 8.5-10.1 [facility] Comment on above: Performed By: #### T SH, BMP #### [facility] [address] [place] [address] Dr. Tasha Dodson Chloride [Moles/Vol] 96 mmol/L Critically low 98-107 [facility] Comment on above: Performed By: #### T SH, BMP #### [facility] [address] [place] [address] Dr. Tasha Dodson CO2 [Moles/Vol] 24.5 mmol/L Normal 21.0-32.0 [facility] Comment on above: Performed By: #### T SH, BMP #### [facility] [address] [place] [address] Dr. Tasha Dodson Creatinine [Mass/Vol] 0.54 mg/dL Critically low 0.55-1.02 [facility] Comment on above: Performed By: #### T SH, BMP #### [facility] [address] [place] [address] Dr. Tasha Dodson EGFR-AF TURKMEN >60 Normal >=60 [facility] Comment on above: Performed By: #### T SH, BMP #### [facility] [address] [place] [address] Dr. Tasha Dodson EGFR-NON AF TURKMEN >60 Normal >=60 [facility] Comment on above: Performed By: #### T SH, BMP #### [facility] [address] [place] [address] Dr. Tasha Dodson Globulin (S) [Mass/Vol] 3.1 g/dL Normal [facility] Comment on above: Performed By: #### T SH, BMP #### [facility] [address] [place] [address] Dr. Tasha Dodson Glucose [Mass/Vol] 123 mg/dL Critically high 74-106 [facility] Comment on above: Performed By: #### T SH, BMP #### [facility] [address] [place] [address] Dr. Tasha Dodson Potassium [Moles/Vol] 3.0 mmol/L Critically low 3.5-5.1 [facility] Comment on above: Performed By: #### T JESI, BMP #### [facility] [address] [place] [address] Dr. Tasha Dodson Protein [Mass/Vol] 6.3 g/dL Critically low 6.4-8.2 [facility] Comment on above: Performed By: #### T SH, BMP #### [facility] [address] [place] [address] Dr. Tasha Dodson Sodium [Moles/Vol] 128 mmol/L Critically low 136-145 [facility] Comment on above: Performed By: #### T JESI, BMP #### [facility] [address] [place] [address] Dr. Tasha Dodson Urea nitrogen [Mass/Vol] 5.0 mg/dL Critically low 7.0-18. 0 [facility] Comment on above: Performed By: #### T JESI, BMP #### [facility] [address] [place] [address] Dr. Tasha Dodson Urea nitrogen/Creatinine [Mass ratio] 9.3 mg/mg Normal [facility] Comment on above: Performed By: #### T JESI, BMP #### [facility] [address] [place] [address] Dr. Tasha Dodson SODIUM RANDOM URINEon 2021 Sodium (U) [Moles/Vol] 135 mmol/L Critically high 30-90 [facility] Comment on above: Performed By: #### C BC #### [facility] [address] [place] [address] Dr. Tasha Dodson CBC AUTO DIFFon 12-27-2021 BASO # 0.0 103/ul Normal 0.0-0.1 [facility] Comment on above: Performed By: #### C BC #### [facility] [address] [place] [address] Dr. Tsaha Dodson Basophils/100 WBC (Bld) 0.2 % Normal 0.2-2.0 [facility] Comment on above: Performed By: #### C BC #### [facility] [address] [address] [address] Tasha Dodson EO # 0.3 103/ul Normal 0.0-0.7 [facility] Comment on above: Performed By: #### C BC #### [facility] [address] [place] [address] Dr. Tasha Dodson Eosinophils/100 WBC (Bld) 2.3 % Normal 0.9-7.0 [facility] Comment on above: Performed By: #### C BC #### [facility] [address] [place] [address] Dr. Tasha Dodson Erythrocyte distribution width (RBC) [Ratio] 12.4 % Normal 11.0-15.0 [facility] Comment on above: Performed By: #### C BC #### [facility] [address] [place] [address] Dr. Tasha Dodson Hematocrit (Bld) [Volume fraction] 35.4 % Critically low 36.0-48.0 [facility] Comment on above: Performed By: #### C BC #### [facility] [address] [place] [address] Dr. Tasha Dodson Hemoglobin (Bld) [Mass/Vol] 12.9 g/dL Normal 12.0-16.0 [facility] Comment on above: Performed By: #### C BC #### [facility] [address] [place] [address] Dr. Tasha Dodson IG # 0.06 10e3/ul Critically high 0.00-0.03 [facility] Comment on above: Performed By: #### C BC #### [facility] [address] [place] [address] Dr. Tasha Dodson IG % 0.5 % Normal 0.0-0.5 [facility] Comment on above: Performed By: #### C BC #### [facility] [address] [place] [address] Dr. Tasha Dodson LYMPH # 2.0 103/ul Normal 1.2-3.8 [facility] Comment on above: Performed By: #### C BC #### [facility] [address] [address] [address] Tasha Dodson Lymphocytes/100 WBC (Bld) 15.7 % Critically low 20.5-60.0 [facility] Comment on above: Performed By: #### C BC #### [facility] [address] [place] [address] Dr. Tasha Dodson MANUAL DIFF REQ NO Normal [facility] Comment on above: Performed By: #### C BC #### [facility] [address] [place] [address] Dr. Tasha Dodson MCH (RBC) [Entitic mass] 31.0 pg Normal 26.7-34.0 [facility] Comment on above: Performed By: #### C BC #### [facility] [address] [place] [address] Dr. Tasha Dodson MCHC (RBC) [Mass/Vol] 36.4 g/dL Critically high 29.9-35.2 [facility] Comment on above: Performed By: #### C BC #### [facility] [address] [place] [address] Dr. Tasha Dodson MCV (RBC) [Entitic vol] 85.1 fL Normal 81.0-99.0 [facility] Comment on above: Performed By: #### C BC #### [facility] [address] [place] [address] Dr. Tasha Dodson MONO # 1.1 103/ul Critically high 0.3-0.8 [facility] Comment on above: Performed By: #### C BC #### [facility] [address] [place] [address] Dr. Tasha Dodson Monocytes/100 WBC (Bld) 8.3 % Normal 1.7-12.0 [facility] Comment on above: Performed By: #### C BC #### [facility] [address] [place] [address] Dr. Tasha Dodson NEUT # 9.5 103/ul Critically high 1.4-6.5 [facility] Comment on above: Performed By: #### C BC #### [facility] [address] [address] [address] Tasha Dodson Neutrophils/100 WBC (Bld) 73.0 % Normal 43.0-75.0 [facility] Comment on above: Performed By: #### C BC #### [facility] [address] [address] [address] Tasha Dodson Platelet mean volume (Bld) [Entitic vol] 8.3 fL Critically low 9.5-13.5 [facility] Comment on above: Performed By: #### C BC #### [facility] [address] [address] [address] Tasha Dodson PLT 408 103/ul Normal 150-450 [facility] Comment on above: Performed By: #### C BC #### [facility] [address] [place] [address] Dr. Tasha Dodson RBC 4.16 106/ul Critically low 4.20-5.40 [facility] Comment on above: Performed By: #### C BC #### [facility] [address] [address] [address] Tasha Dodson WBC 13.0 103/ul Critically high 4.0-11.0 [facility] Comment on above: Performed By: #### C BC #### [facility] [address] [address] [address] Tasha Dodson CULTURE SPUTUMon 12-27-2021 CULTURE SPUTUM Culture Observations: NORMAL RESPIRATORY AMADOU. Normal [facility] Comment on above: Performed By: #### C BC #### [facility] [address] [address] [address] Tasha Dodson PROF 14(COMP METB)on 022 Albumin [Mass/Vol] 3.4 g/dL Normal 3.4-5.0 [facility] Comment on above: Performed By: #### C MADM, LIPA, BNP, CMP #### [facility] [address] [address] [address] Tasha Dodson Albumin/Globulin [Mass ratio] 1.0 {ratio} Normal [facility] Comment on above: Performed By: #### C MADM, LIPA, BNP, CMP #### [facility] [address] [place] [address] Dr. Tasha Dodson ALP [Catalytic activity/Vol] 54 U/L Normal 46-116 [facility] Comment on above: Performed By: #### C MADM, LIPA, BNP, CMP #### [facility] [address] [place] [address] Dr. Tasha Dodson ALT [Catalytic activity/Vol] 20 U/L Normal 14-59 [facility] Comment on above: Performed By: #### C MADM, LIPA, BNP, CMP #### [facility] [address] [place] [address] Dr. Tasha Dodson Anion gap [Moles/Vol] 10.8 mmol/L Normal [facility] Comment on above: Performed By: #### C MADM, LIPA, BNP, CMP #### [facility] [address] [place] [address] Dr. Tasha Dodson AST [Catalytic activity/Vol] 19 U/L Normal 15-37 [facility] Comment on above: Performed By: #### C MADM, LIPA, BNP, CMP #### [facility] [address] [place] [address] Dr. Tasha Dodson Bilirubin [Mass/Vol] 0.5 mg/dL Normal 0.2-1.0 [facility] Comment on above: Performed By: #### C MADM, LIPA, BNP, CMP #### [facility] [address] [place] [address] Dr. Tasha Dodson Calcium [Mass/Vol] 8.3 mg/dL Critically low 8.5-10.1 [facility] Comment on above: Performed By: #### C MADM, LIPA, BNP, CMP #### [facility] [address] [place] [address] Dr. Tasha Dodson Chloride [Moles/Vol] 89 mmol/L Critically low 98-107 [facility] Comment on above: Performed By: #### C MADM, LIPA, BNP, CMP #### [facility] [address] [address] [address] Tasha Dodson CO2 [Moles/Vol] 27.0 mmol/L Normal 21.0-32.0 [facility] Comment on above: Performed By: #### C MADM, LIPA, BNP, CMP #### [facility] [address] [address] [address] Tasha Dodson Creatinine [Mass/Vol] 0.69 mg/dL Normal 0.55-1.02 [facility] Comment on above: Performed By: #### C MADM, LIPA, BNP, CMP #### [facility] [address] [address] [address] Tasha Dodson EGFR-AF TURKMEN >60 Normal >=60 [facility] Comment on above: Performed By: #### C MADM, LIPA, BNP, CMP #### [facility] [address] [address] [address] Tasha Dodson EGFR-NON AF TURKMEN >60 Normal >=60 [facility] Comment on above: Performed By: #### C MADM, LIPA, BNP, CMP #### [facility] [address] [address] [address] Tasha Dodson Globulin (S) [Mass/Vol] 3.3 g/dL Normal [facility] Comment on above: Performed By: #### C MADM, LIPA, BNP, CMP #### [facility] [address] [address] [address] Tasha Dodson Glucose [Mass/Vol] 115 mg/dL Critically high 74-106 [facility] Comment on above: Performed By: #### C MADM, LIPA, BNP, CMP #### [facility] [address] [address] [address] Tasha Dodson Potassium [Moles/Vol] 2.7 mmol/L Critically low 3.5-5.1 [facility] Comment on above: Result Comment: Test Repeated. Critical Value Verified Performed By: #### C MADM, LIPA, BNP, CMP #### [facility] [address] [place] [address] Dr. Tasha Dodson Protein [Mass/Vol] 6.7 g/dL Normal 6.4-8.2 [facility] Comment on above: Performed By: #### C MADM, LIPA, BNP, CMP #### [facility] [address] [address] [address] Tasha Dodson Sodium [Moles/Vol] 123 mmol/L Critically low 136-145 [facility] Comment on above: Result Comment: Test Repeated. Critical Value Verified Performed By: #### C MADM, LIPA, BNP, CMP #### [facility] [address] [address] [address] Tasha Dodson Urea nitrogen [Mass/Vol] 6.0 mg/dL Critically low 7.0-18. 0 [facility] Comment on above: Performed By: #### C MADM, LIPA, BNP, CMP #### [facility] [address] [place] [address] Dr. Tasha Dodson Urea nitrogen/Creatinine [Mass ratio] 8.7 mg/mg Normal [facility] Comment on above: Performed By: #### C MADM, LIPA, BNP, CMP #### [facility] [address] [address] [address] Tasha Dodson SPUTUM GRAM STAINon 12-28-19 COMMENTS Normal [facility] Comment on above: Performed By: #### T SH, BMP #### [facility] [address] [place] [address] Dr. Tasha Dodson DIPHTHEROIDS Normal [facility] Comment on above: Performed By: #### T SH, BMP #### [facility] [address] [place] [address] Dr. Tasha Dodson EPITHELIALS <25 Normal [facility] Comment on above: Performed By: #### T SH, BMP #### [facility] [address] [place] [address] Dr. Tasha Dodson FUNGAL ELEMENTS Normal [facility] Comment on above: Performed By: #### T SH, BMP #### [facility] [address] [place] [address] Dr. Tasha Dodson GRAM NEG BACILLI Normal [facility] Comment on above: Performed By: #### T SH, BMP #### [facility] [address] [address] [address] Tasha Dodson GRAM NEG DIPPLOCOCCI Normal [facility] Comment on above: Performed By: #### T SH, BMP #### [facility] [address] [address] [address] Tasha Dodson GRAM POS BACILLI Normal [facility] Comment on above: Performed By: #### T SH, BMP #### [facility] [address] [address] [address] Tasha Dodson GRAM POSITIVE COCCI MODERATE Normal [facility] Comment on above: Performed By: #### T SH, BMP #### [facility] [address] [place] [address] Dr. Tasha Dodson WBC (Bld) [#/Vol] 10*3/uL Normal [facility] Comment on above: Performed By: #### T SH, BMP #### [facility] [address] [place] [address] Dr. Tasha Dodson BNPon 12-26-2021 Natriuretic peptide B (Bld) [Mass/Vol] 148.0 pg/mL Normal <=1,800.0 [facility] Comment on above: Performed By: #### C MADM, LIPA, BNP, CMP #### [facility] [address] [place] [address] Dr. Tasha Dodson CARDIAC ANGELO ADMITon 022 CK [Catalytic activity/Vol] 139 U/L Normal 26-192 [facility] Comment on above: Performed By: #### C MADM, LIPA, BNP, CMP #### [facility] [address] [place] [address] Dr. Tasha Dodson CK.MB [Mass/Vol] 2.43 ng/mL Normal <=3.60 [facility] Comment on above: Performed By: #### C MADM, LIPA, BNP, CMP #### [facility] [address] [place] [address] Dr. Tasha Dodson HSTROP 12.2 pg/mL Normal 4.0-51.3 [facility] Comment on above: Result Comment: CUT- OFF POINTS HAVE BEEN ESTABLISHED BASED ON THE FOURTH UNIVERSAL DEFINITIONS OF MYOCARDIAL INFARCTION. THE UPPER REFERENCE LIMIT (URL) OF TROPONIN, DEFINED THE 99TH PERCENTILE OF cTnI DISTRIBUTION IN A REFERENCE POPULATION, HAS BEEN CONFIRMED THE DECISION THRESHOLD FOR ND DIAGNOSIS. Performed By: #### C MADM, LIPA, BNP, CMP #### [facility] [address] [place] [address] Dr. Tasha Dodson ELIZABETH 110 ng/mL Critically high 9-82 [facility] Comment on above: Performed By: #### C MADM, LIPA, BNP, CMP #### [facility] [address] [place] [address] Dr. Tasha Dodson CBC AUTO DIFFon 12-26-2021 BASO # 0.0 103/ul Normal 0.0-0.1 [facility] Comment on above: Performed By: #### C MADM, LIPA, BNP, CMP #### [facility] [address] [place] [address] Dr. Tasha Dodson Basophils/100 WBC (Bld) 0.3 % Normal 0.2-2.0 [facility] Comment on above: Performed By: #### C MADM, LIPA, BNP, CMP #### [facility] [address] [place] [address] Dr. Tasha Dodson EO # 0.1 103/ul Normal 0.0-0.7 [facility] Comment on above: Performed By: #### C MADM, LIPA, BNP, CMP #### [facility] [address] [place] [address] Dr. Tasha Dodson Eosinophils/100 WBC (Bld) 0.7 % Critically low 0.9-7.0 [facility] Comment on above: Performed By: #### C MADM, LIPA, BNP, CMP #### [facility] [address] [place] [address] Dr. Tasha Dodson Erythrocyte distribution width (RBC) [Ratio] 12.4 % Normal 11.0-15.0 [facility] Comment on above: Performed By: #### C MADM, LIPA, BNP, CMP #### [facility] [address] [place] [address] Dr. Tasha Dodson Hematocrit (Bld) [Volume fraction] 38.9 % Normal 36.0-48.0 [facility] Comment on above: Performed By: #### C MADM, LIPA, BNP, CMP #### [facility] [address] [place] [address] Dr. Tasha Dodson Hemoglobin (Bld) [Mass/Vol] 14.4 g/dL Normal 12.0-16.0 [facility] Comment on above: Performed By: #### C MADM, LIPA, BNP, CMP #### [facility] [address] [place] [address] Dr. Tasha Dodson IG # 0.08 10e3/ul Critically high 0.00-0.03 [facility] Comment on above: Performed By: #### C MADM, LIPA, BNP, CMP #### [facility] [address] [place] [address] Dr. Tasha Dodson IG % 0.5 % Normal 0.0-0.5 [facility] Comment on above: Performed By: #### C MADM, LIPA, BNP, CMP #### [facility] [address] [place] [address] Dr. Tasha Dodson LYMPH # 2.2 103/ul Normal 1.2-3.8 [facility] Comment on above: Performed By: #### C MADM, LIPA, BNP, CMP #### [facility] [address] [place] [address] Dr. Tasha Dodson Lymphocytes/100 WBC (Bld) 15.0 % Critically low 20.5-60.0 [facility] Comment on above: Performed By: #### C MADM, LIPA, BNP, CMP #### [facility] [address] [place] [address] Dr. Tasha Dodson MANUAL DIFF REQ NO Normal [facility] Comment on above: Performed By: #### C MADM, LIPA, BNP, CMP #### [facility] [address] [place] [address] Dr. Tasha Dodson MCH (RBC) [Entitic mass] 31.6 pg Normal 26.7-34.0 [facility] Comment on above: Performed By: #### C MADM, LIPA, BNP, CMP #### [facility] [address] [place] [address] Dr. Tasha Dodson MCHC (RBC) [Mass/Vol] 37.0 g/dL Critically high 29.9-35.2 [facility] Comment on above: Performed By: #### C MADM, LIPA, BNP, CMP #### [facility] [address] [place] [address] Dr. Tasha Dodson MCV (RBC) [Entitic vol] 85.3 fL Normal 81.0-99.0 [facility] Comment on above: Performed By: #### C MADM, LIPA, BNP, CMP #### [facility] [address] [place] [address] Dr. Tasha Dodson MONO # 1.0 103/ul Critically high 0.3-0.8 [facility] Comment on above: Performed By: #### C MADM, LIPA, BNP, CMP #### [facility] [address] [place] [address] Dr. Tasha Dodson Monocytes/100 WBC (Bld) 6.8 % Normal 1.7-12.0 [facility] Comment on above: Performed By: #### C MADM, LIPA, BNP, CMP #### [facility] [address] [place] [address] Dr. Tasha Dodson NEUT # 11.5 103/ul Critically high 1.4-6.5 [facility] Comment on above: Performed By: #### C MADM, LIPA, BNP, CMP #### [facility] [address] [place] [address] Dr. Tasha Dodson Neutrophils/100 WBC (Bld) 76.7 % Critically high 43.0-75.0 [facility] Comment on above: Performed By: #### C MADM, LIPA, BNP, CMP #### [facility] [address] [place] [address] Dr. Tasha Dodson Platelet mean volume (Bld) [Entitic vol] 8.6 fL Critically low 9.5-13.5 [facility] Comment on above: Performed By: #### C MADM, LIPA, BNP, CMP #### [facility] [address] [address] [address] Tasha Dodson PLT 491 103/ul Critically high 150-[address] [facility] Comment on above: Performed By: #### C MADM, LIPA, BNP, CMP #### [facility] [address] [place] [address] Dr. Tasha Dodson RBC 4.56 106/ul Normal 4.20-5.40 [facility] Comment on above: Performed By: #### C MADM, LIPA, BNP, CMP #### [facility] [address] [place] [address] Dr. Tasha Dodson WBC 15.0 103/ul Critically high 4.0-11.0 [facility] Comment on above: Performed By: #### C MADM, LIPA, BNP, CMP #### [facility] [address] [place] [address] Dr. Tasha Dodson CULTURE URINEon 12-26-2021 CULTURE URINE Culture Observations: LIGHT GROWTH OF MIXED GENITAL AMADOU. NO POTENTIAL PATHOGENS SEEN. Normal [facility] Comment on above: Performed By: #### C BC #### [facility] [address] [place] [address] Dr. Tasha Dodson [facility]on SARS-CoV-2 (COVID-19) RNA CARITO+probe Ql (Unsp spec) Not detected Normal NOT DETECTED [facility] Comment on above: Result Comment: When [...] for this test is supported by the Web Support Engineer of Health and Human Service's declaration that [...] #### C MADM, LIPA, BNP, CMP #### [facility] [address] [place] [address] Dr. Tasha Dodson ER URINE PROFILEon 2 Bilirubin Ql (U) Negative Normal NEGATIVE [facility] Comment on above: Performed By: #### T SH, BMP #### [facility] [address] [place] [address] Dr. Tasha Dodson Clarity (U) CLEAR Normal CLEAR [facility] Comment on above: Performed By: #### T SH, BMP #### [facility] [address] [place] [address] Dr. Tasha Dodson Color (U) LT. YELLOW Normal YELLOW [facility] Comment on above: Performed By: #### T SH, BMP #### [facility] [address] [place] [address] Dr. Tasha FERNANDES A micrscopic examination will be performed if indicated. Normal [facility] Comment on above: Performed By: #### T SH, BMP #### [facility] [address] [place] [address] Dr. Tasha Dodson Glucose Ql (U) Negative Normal NEGATIVE [facility] Comment on above: Performed By: #### T SH, BMP #### [facility] [address] [place] [address] Dr. Tasha Dodson Hemoglobin Ql (U) TRACE-INTACT Abnormal NEGATIVE [facility] Comment on above: Performed By: #### T SH, BMP #### [facility] [address] [place] [address] Dr. Tasha Dodson Ketones Ql (U) TRACE Abnormal NEGATIVE [facility] Comment on above: Performed By: #### T SH, BMP #### [facility] [address] [place] [address] Dr. Tasha Dodson LEUKOCYTES Negative Normal NEGATIVE [facility] Comment on above: Performed By: #### T SH, BMP #### [facility] [address] [place] [address] Dr. Tasha Dodson Nitrite Ql (U) Negative Normal NEGATIVE [facility] Comment on above: Performed By: #### T SH, BMP #### [facility] [address] [place] [address] Dr. Tasha Dodson pH (U) 7.0 [pH] Normal 5-9 [facility] Comment on above: Performed By: #### T SH, BMP #### [facility] [address] [place] [address] Dr. Tasha Dodson SPEC GRAVITY 1.010 Normal 1.005-<=1.02 5 [facility] Comment on above: Performed By: #### T SH, BMP #### [facility] [address] [place] [address] Dr. Tasha Dodson UA PROTEIN Negative Normal NEGATIVE/ TRACE [facility] Comment on above: Performed By: #### T SH, BMP #### [facility] [address] [place] [address] Dr. Tasha Dodson UR MICRO IND INDICATED Normal [facility] Comment on above: Performed By: #### T SH, BMP #### [facility] [address] [place] [address] Dr. Tasha Dodson Urobilinogen Qn (U) 0.2 {Juan'U}/dL Normal 0.2 - 1. 0 [facility] Comment on above: Performed By: #### T SH, BMP #### [facility] [address] [place] [address] Dr. Tasha Dodson INFLUENZA A AND B AGon 12-26 INFLUANEGH SEE BELOW Normal [facility] Comment on above: Result Comment: Nega tive for Flu A protein angiten. Infection due to Flu A cannot be ruled out. Flu A angiten in the sample may be below the detection limit of the test. Performed By: #### C BC #### [facility] [address] [place] [address] Dr. Tasha Dodson [facility] SEE BELOW Normal [facility] Comment on above: Result Comment: Nega tive for Flu B protein antigen. Infection due to Flu B cannot be ruled out. Flu B antigen in the sample may be below the detection limit of the test. Performed By: #### C BC #### [facility] [address] [place] [address] Dr. Tasha Dodson INFLUENZA A AG Negative Normal NEGATIVE SEE COMMENT [facility] Comment on above: Performed By: #### C BC #### [facility] [address] [place] [address] Dr. Tasha Dodson INFLUENZA B AG Negative Normal NEGATIVE SEE COMMENT [facility] Comment on above: Performed By: #### C BC #### [facility] [address] [place] [address] Dr. Tasha Dodson INTERNAL CONTROLS Within Normal Limits Normal Wi thin Normal Limits [facility] Comment on above: Performed By: #### C BC #### [facility] [address] [place] [address] Dr. Tasha Dodson LACTATE/LACTIC ACIDon 2021 Lactate [Moles/Vol] 1.5 mmol/L Normal 0.4-1.9 [facility] Comment on above: Performed By: #### T SH, BMP #### [facility] [address] [place] [address] Dr. Tasha Dodson LIPASEon 12-26-2021 Lipase [Catalytic activity/Vol] 96.0 U/L Normal 73.0-393.0 [facility] Comment on above: Performed By: #### C MADM, LIPA, BNP, CMP #### [facility] [address] [place] [address] Dr. Tasha Dodson PROF 14(COMP METB)on 022 Albumin [Mass/Vol] 4.2 g/dL Normal 3.4-5.0 [facility] Comment on above: Performed By: #### C MADM, LIPA, BNP, CMP #### [facility] [address] [place] [address] Dr. Tasha Dodson Albumin/Globulin [Mass ratio] 1.1 {ratio} Normal [facility] Comment on above: Performed By: #### C MADM, LIPA, BNP, CMP #### [facility] [address] [place] [address] Dr. Tasha Dodson ALP [Catalytic activity/Vol] 68 U/L Normal 46-116 [facility] Comment on above: Performed By: #### C MADM, LIPA, BNP, CMP #### [facility] [address] [place] [address] Dr. Tasha Dodson ALT [Catalytic activity/Vol] 23 U/L Normal 14-59 [facility] Comment on above: Performed By: #### C MADM, LIPA, BNP, CMP #### [facility] [address] [place] [address] Dr. Tasha Dodson Anion gap [Moles/Vol] 12.3 mmol/L Normal [facility] Comment on above: Performed By: #### C MADM, LIPA, BNP, CMP #### [facility] [address] [place] [address] Dr. Tasha Dodson AST [Catalytic activity/Vol] 25 U/L Normal 15-37 [facility] Comment on above: Performed By: #### C MADM, LIPA, BNP, CMP #### [facility] [address] [place] [address] Dr. Tasha Dodson Bilirubin [Mass/Vol] 0.7 mg/dL Normal 0.2-1.0 [facility] Comment on above: Performed By: #### C MADM, LIPA, BNP, CMP #### [facility] [address] [place] [address] Dr. Tasha Dodson Calcium [Mass/Vol] 9.5 mg/dL Normal 8.5-10.1 [facility] Comment on above: Performed By: #### C MADM, LIPA, BNP, CMP #### [facility] [address] [place] [address] Dr. Tasha Dodson Chloride [Moles/Vol] 80 mmol/L Critically low 98-107 [facility] Comment on above: Performed By: #### C MADM, LIPA, BNP, CMP #### [facility] [address] [address] [address] Tasha Dodson CO2 [Moles/Vol] 27.1 mmol/L Normal 21.0-32.0 [facility] Comment on above: Performed By: #### C MADM, LIPA, BNP, CMP #### [facility] [address] [address] [address] Tasha Dodson Creatinine [Mass/Vol] 0.85 mg/dL Normal 0.55-1.02 [facility] Comment on above: Performed By: #### C MADM, LIPA, BNP, CMP #### [facility] [address] [address] [address] Tasha Dodson EGFR-AF TURKMEN >60 Normal >=60 [facility] Comment on above: Performed By: #### C MADM, LIPA, BNP, CMP #### [facility] [address] [address] [address] Tasha Dodson EGFR-NON AF TURKMEN >60 Normal >=60 [facility] Comment on above: Performed By: #### C MADM, LIPA, BNP, CMP #### [facility] [address] [address] [address] Tasha Dodson Globulin (S) [Mass/Vol] 3.9 g/dL Normal [facility] Comment on above: Performed By: #### C MADM, LIPA, BNP, CMP #### [facility] [address] [address] [address] Tasha Dodson Glucose [Mass/Vol] 132 mg/dL Critically high 74-106 [facility] Comment on above: Performed By: #### C MADM, LIPA, BNP, CMP #### [facility] [address] [address] [address] Tasha Dodson Potassium [Moles/Vol] 2.4 mmol/L Critically low 3.5-5.1 [facility] Comment on above: Performed By: #### C MADM, LIPA, BNP, CMP #### [facility] [address] [place] [address] Dr. Tasha Dodson Protein [Mass/Vol] 8.1 g/dL Normal 6.4-8.2 [facility] Comment on above: Performed By: #### C MADM, LIPA, BNP, CMP #### [facility] [address] [place] [address] Dr. Tasha Dodson Sodium [Moles/Vol] 116 mmol/L Critically low 136-145 [facility] Comment on above: Performed By: #### C MADM, LIPA, BNP, CMP #### [facility] [address] [place] [address] Dr. Tasha Dodson Urea nitrogen [Mass/Vol] 12.0 mg/dL Normal 7.0-18.0 [facility] Comment on above: Performed By: #### C MADM, LIPA, BNP, CMP #### [facility] [address] [place] [address] Dr. Tasha Dodson Urea nitrogen/Creatinine [Mass ratio] 14.1 mg/mg [facility] Comment on above: Performed By: #### C MADM, LIPA, BNP, CMP #### [facility] [address] [place] [address] Dr. Tasha Dodson PROF CHEM 8 (BAS METB)on Anion gap [Moles/Vol] 11.4 mmol/L Normal [facility] Comment on above: Performed By: #### T SH, BMP #### [facility] [address] [place] [address] Dr. Tasha Dodson Calcium [Mass/Vol] 8.4 mg/dL Critically low 8.5-10.1 [facility] Comment on above: Performed By: #### T SH, BMP #### [facility] [address] [place] [address] Dr. Tasha Dodson Chloride [Moles/Vol] 89 mmol/L Critically low 98-107 [facility] Comment on above: Performed By: #### T SH, BMP #### [facility] [address] [address] [address] Tasha Dodson CO2 [Moles/Vol] 25.5 mmol/L Normal 21.0-32.0 [facility] Comment on above: Performed By: #### T SH, BMP #### [facility] [address] [address] [address] Tasha Dodson Creatinine [Mass/Vol] 0.89 mg/dL Normal 0.55-1.02 [facility] Comment on above: Performed By: #### T SH, BMP #### [facility] [address] [address] [address] Tasha Dodson EGFR-AF TURKMEN >60 Normal >=60 [facility] Comment on above: Performed By: #### T SH, BMP #### [facility] [address] [address] [address] Tasha Dodson EGFR-NON AF TURKMEN 60 mL/min/1.73m2 Normal >=60 [facility] Comment on above: Performed By: #### T SH, BMP #### [facility] [address] [address] [address] Tasha Dodson Glucose [Mass/Vol] 166 mg/dL Critically high 74-106 [facility] Comment on above: Performed By: #### T SH, BMP #### [facility] [address] [address] [address] Tasha Dodson Potassium [Moles/Vol] 3.0 mmol/L Critically low 3.5-5.1 [facility] Comment on above: Performed By: #### T SH, BMP #### [facility] [address] [address] [address] Tasha Dodson Sodium [Moles/Vol] 123 mmol/L Critically low 136-145 [facility] Comment on above: Performed By: #### T SH, BMP #### [facility] [address] [address] [address] Tasha Dodson Urea nitrogen [Mass/Vol] 9.0 mg/dL Normal 7.0-18.0 [facility] Comment on above: Performed By: #### T SH, BMP #### [facility] [address] [place] [address] Dr. Tasha Dodson Urea nitrogen/Creatinine [Mass ratio] 10.1 mg/mg Normal [facility] Comment on above: Performed By: #### T JESI, BMP #### [facility] [address] [place] [address] Dr. Tasha Dodson PROTIMEon 12-26-2021 INR Coag (PPP) [Relative time] 0.96 {INR} Normal [facility] Comment on above: Performed By: #### T JESI, BMP #### [facility] [address] [place] [address] Dr. Tasha Dodson INR GUIDELINES SEE BELOW Normal [facility] Comment on above: Result Comment: JO RED INR: 2.0 - 3.0 CONDITIONS NOT LISTED BELOW 2.5 - 3.5 FOR PROSTHETIC HEART VALVE REPLACEMENT 2.5 - 3.5 RECURRENT THROMBOSIS Performed By: #### T JESI, BMP #### [facility] [address] [place] [address] Dr. Tasha Dodson PT Coag (PPP) [Time] 10.4 s Normal 9.0-11.6 [facility] Comment on above: Performed By: #### T JESI, BMP #### [facility] [address] [place] [address] Dr. Tasha Dodson PTTon 12-26-2021 aPTT Coag (Bld) [Time] 26.2 s Normal 22.3-36.2 [facility] Comment on above: Performed By: #### T JESI, BMP #### [facility] [address] [place] [address] Dr. Tasha Dodson SODIUM RANDOM URINEon 2021 Sodium (U) [Moles/Vol] 71 mmol/L Normal 30-90 [facility] Comment on above: Performed By: #### T JESI, BMP #### [facility] [address] [place] [address] Dr. Tasha Dodson T4on 12-26-2021 T4 [Mass/Vol] 10.60 ug/dL Normal 4.80-13.90 [facility] Comment on above: Performed By: #### C BC #### [facility] [address] [place] [address] Dr. Tasha Dodson TSHon 12-26-2021 TSH 5.236 uIU/mL Critically high 0.358-3.740 [facility] Comment on above: Performed By: #### C BC #### [facility] [address] [place] [address] Dr. Tasha Dodson URINE MICROSCOPIC ONLYon BACTERIA TRACE Abnormal NONE SEEN [facility] Comment on above: Performed By: #### T SH, BMP #### [facility] [address] [place] [address] Dr. Tasha Dodson Bacteria identified Cx Nom (U) NOT INDICATED Normal [facility] Comment on above: Performed By: #### T SH, BMP #### [facility] [address] [place] [address] Dr. Tasha Dodson CAST NONE SEEN Normal NONE SEEN [facility] Comment on above: Performed By: #### T SH, BMP #### [facility] [address] [place] [address] Dr. Tasha Dodson Crystals LM Nom (Urine sed) NONE SEEN Normal NONE SEEN [facility] Comment on above: Performed By: #### T SH, BMP #### [facility] [address] [place] [address] Dr. Tasha Dodson Epithelial cells LM Ql (Urine sed) NONE SEEN Normal NONE SEEN /RARE [facility] Comment on above: Performed By: #### T SH, BMP #### [facility] [address] [place] [address] Dr. Tasha Dodson MUCOUS NONE SEEN Normal NONE SEEN [facility] Comment on above: Performed By: #### T SH, BMP #### [facility] [address] [place] [address] Dr. Tasha Dodson RBC 0-2 Normal 0-2 [facility] Comment on above: Performed By: #### T SH, BMP #### [facility] [address] [place] [address] Dr. Tasha Dodson WBC 0-2 Abnormal NONE SEEN [facility] Comment on above: Performed By: #### T SH, BMP #### [facility] [address] [address] [address] Tasha Dodson XR CHEST 1 Von [...] TING MIXON Date: 2021-12-26 11:32 Normal [facility] XR LSPINE MIN 4 VIEWSon 11-20 [...] JESUS BRUNO Date: 2021-11-30 22:52 Normal [facility] CBC AUTO DIFFon 11-09-2021 BASO # 0.1 103/ul Normal 0.0-0.1 [facility] Comment on above: Performed By: #### C MADM, LIPA, BNP, CMP #### [facility] [address] [place], [place] [address] Dr. Tasha Dodson Basophils/100 WBC (Bld) 0.7 % Normal 0.2-2.0 [facility] Comment on above: Performed By: #### C MADM, LIPA, BNP, CMP #### [facility] [address] [place] [address] Dr. Tasha Dodson EO # 0.2 103/ul Normal 0.0-0.7 [facility] Comment on above: Performed By: #### C MADM, LIPA, BNP, CMP #### [facility] [address] [place] [address] Dr. Tasha Dodson Eosinophils/100 WBC (Bld) 1.8 % Normal 0.9-7.0 [facility] Comment on above: Performed By: #### C MADM, LIPA, BNP, CMP #### [facility] [address] [place] [address] Dr. Tasha Dodson Erythrocyte distribution width (RBC) [Ratio] 13.0 % Normal 11.0-15.0 [facility] Comment on above: Performed By: #### C MADM, LIPA, BNP, CMP #### [facility] [address] [place] [address] Dr. Tasha Dodson Hematocrit (Bld) [Volume fraction] 33.8 % Critically low 36.0-48.0 [facility] Comment on above: Performed By: #### C MADM, LIPA, BNP, CMP #### [facility] [address] [place] [address] Dr. Tasha Dodson Hemoglobin (Bld) [Mass/Vol] 12.5 g/dL Normal 12.0-16.0 [facility] Comment on above: Performed By: #### C MADM, LIPA, BNP, CMP #### [facility] [address] [place] [address] Dr. Tasha Dodson IG # 0.02 10e3/ul Normal 0.00-0.03 [facility] Comment on above: Performed By: #### C MADM, LIPA, BNP, CMP #### [facility] [address] [place] [address] Dr. Tasha Dodson IG % 0.2 % Normal 0.0-0.5 [facility] Comment on above: Performed By: #### C MADM, LIPA, BNP, CMP #### [facility] [address] [place] [address] Dr. Tasha Dodson LYMPH # 2.9 103/ul Normal 1.2-3.8 [facility] Comment on above: Performed By: #### C MADM, LIPA, BNP, CMP #### [facility] [address] [place] [address] Dr. Tasha Dodson Lymphocytes/100 WBC (Bld) 29.4 % Normal 20.5-60.0 [facility] Comment on above: Performed By: #### C MADM, LIPA, BNP, CMP #### [facility] [address] [place] [address] Dr. Tasha Dodson MANUAL DIFF REQ NO Normal [facility] Comment on above: Performed By: #### C MADM, LIPA, BNP, CMP #### [facility] [address] [place] [address] Dr. Tasha Dodson MCH (RBC) [Entitic mass] 34.1 pg Critically high 26.7-3 4.0 [facility] Comment on above: Performed By: #### C MADM, LIPA, BNP, CMP #### [facility] [address] [place] [address] Dr. Tasha Dodson MCHC (RBC) [Mass/Vol] 37.0 g/dL Critically high 29.9-35.2 [facility] Comment on above: Performed By: #### C MADM, LIPA, BNP, CMP #### [facility] [address] [place] [address] Dr. Tasha Dodson MCV (RBC) [Entitic vol] 92.1 fL Normal 81.0-99.0 [facility] Comment on above: Performed By: #### C MADM, LIPA, BNP, CMP #### [facility] [address] [place] [address] Dr. Tasha Dodson MONO # 0.8 103/ul Normal 0.3-0.8 [facility] Comment on above: Performed By: #### C MADM, LIPA, BNP, CMP #### [facility] [address] [address] [address] Tasha Dodson Monocytes/100 WBC (Bld) 8.2 % Normal 1.7-12.0 [facility] Comment on above: Performed By: #### C MADM, LIPA, BNP, CMP #### [facility] [address] [address] [address] Tasha Dodson NEUT # 5.9 103/ul Normal 1.4-6.5 [facility] Comment on above: Performed By: #### C MADM, LIPA, BNP, CMP #### [facility] [address] [address] [address] Tasha Dodson Neutrophils/100 WBC (Bld) 59.7 % Normal 43.0-75.0 [facility] Comment on above: Performed By: #### C MADM, LIPA, BNP, CMP #### [facility] [address] [place] [address] Dr. Tasha Dodson Platelet mean volume (Bld) [Entitic vol] 8.9 fL Critically low 9.5-13.5 [facility] Comment on above: Performed By: #### C MADM, LIPA, BNP, CMP #### [facility] [address] [place] [address] Dr. Tasha Dodson PLT 370 103/ul Normal 150-450 [facility] Comment on above: Performed By: #### C MADM, LIPA, BNP, CMP #### [facility] [address] [place] [address] Dr. Tasha Dodson RBC 3.67 106/ul Critically low 4.20-5.40 [facility] Comment on above: Performed By: #### C MADM, LIPA, BNP, CMP #### [facility] [address] [place] [address] Dr. Tasha Dodson WBC 9.9 103/ul Normal 4.0-11.0 [facility] Comment on above: Performed By: #### C MADM, LIPA, BNP, CMP #### [facility] [address] [place] [address] Dr. Tasha Dodson FREE T4on 11-09-2021 Free T4 [Mass/Vol] 1.48 ng/dL Critically high 0.76-1.46 [facility] Comment on above: Performed By: #### F T4 #### [facility] [address] [place] [address] Dr. Tasha Dodson PROF CHEM 8 (BAS METB)on Anion gap [Moles/Vol] 11.1 mmol/L Normal [facility] Comment on above: Performed By: #### T SH, BMP #### [facility] [address] [place] [address] Dr. Tasha Dodson Calcium [Mass/Vol] 9.3 mg/dL Normal 8.5-10.1 [facility] Comment on above: Performed By: #### T SH, BMP #### [facility] [address] [place] [address] Dr. Tasha Dodson Chloride [Moles/Vol] 92 mmol/L Critically low 98-107 [facility] Comment on above: Performed By: #### T SH, BMP #### [facility] [address] [place] [address] Dr. Tasha Dodson CO2 [Moles/Vol] 29.2 mmol/L Normal 21.0-32.0 [facility] Comment on above: Performed By: #### T SH, BMP #### [facility] [address] [place] [address] Dr. Tasha Dodson Creatinine [Mass/Vol] 0.68 mg/dL Normal 0.55-1.02 [facility] Comment on above: Performed By: #### T SH, BMP #### [facility] [address] [place] [address] Dr. Tasha Dodson EGFR-AF TURKMEN >60 Normal >=60 [facility] Comment on above: Performed By: #### T SH, BMP #### [facility] [address] [place] [address] Dr. Tasha Dodson EGFR-NON AF TURKMEN >60 Normal >=60 [facility] Comment on above: Performed By: #### T SH, BMP #### [facility] [address] [place] [address] Dr. Tasha Dodson Glucose [Mass/Vol] 109 mg/dL Critically high 74-106 [facility] Comment on above: Performed By: #### T SH, BMP #### [facility] [address] [place] [address] Dr. Tasha Dodson Potassium [Moles/Vol] 3.3 mmol/L Critically low 3.5-5.1 [facility] Comment on above: Performed By: #### T SH, BMP #### [facility] [address] [place] [address] Dr. Tasha Dodson Sodium [Moles/Vol] 129 mmol/L Critically low 136-145 [facility] Comment on above: Performed By: #### T SH, BMP #### [facility] [address] [place] [address] Dr. Tasha Dodson Urea nitrogen [Mass/Vol] 9.0 mg/dL Normal 7.0-18.0 [facility] Comment on above: Performed By: #### T JESI, BMP #### [facility] [address] [place] [address] Dr. Tasha Dodson Urea nitrogen/Creatinine [Mass ratio] 13.2 mg/mg Normal [facility] Comment on above: Performed By: #### T SH, BMP #### [facility] [address] [place] [address] Dr. Tasha Dodson TSHon 11-09-2021 TSH 1.193 uIU/mL Normal 0.358-3.740 [facility] Comment on above: Performed By: #### T SH, BMP #### [facility] [address] [place] [address] Dr. Tasha Dodson LIPID PROFILEon 08-06-2021 CHOL-HDL RATIO NORM SEE BELOW Normal [facility] Comment on above: Result Comment: 3.3 - 4.4 LOW RISK 4.4 - 7.1 AVERAGE RISK 7.1 - 11.0 MODERATE RISK >11.0 HIGH RISK Performed By: #### C MADM, LIPA, BNP, CMP #### [facility] [address] [place] [address] Dr. Tasha Dodson Cholesterol [Mass/Vol] 198 mg/dL Normal <=200 [facility] Comment on above: Performed By: #### C MADM, LIPA, BNP, CMP #### [facility] [address] [address] [address] Tasha Dodson Cholesterol in HDL [Mass/Vol] 77 mg/dL Critically high 40-60 [facility] Comment on above: Performed By: #### C MADM, LIPA, BNP, CMP #### [facility] [address] [address] [address] Tasha Dodson Cholesterol in LDL [Mass/Vol] 106.0 mg/dL Normal [facility] Comment on above: Performed By: #### C MADM, LIPA, BNP, CMP #### [facility] [address] [address] [address] Tasha Dodson Cholesterol.total/Choles terol in HDL [Mass ratio] 2.6 {ratio} Normal [facility] Comment on above: Performed By: #### C MADM, LIPA, BNP, CMP #### [facility] [address] [address] [address] Tasha Dodson HDL NORMAL > or = 60 mg/dl - LOW CARDIOVASCULAR RISK <40 mg/dl - HIGH CARDIOVASCULAR RISK Normal [facility] Comment on above: Performed By: #### C MADM, LIPA, BNP, CMP #### [facility] [address] [address] [address] Tasha Dodson LDL CALC NORMAL SEE BELOW Normal [facility] Comment on above: Result Comment: <100 mg/dl OPTIMAL 100 - 129 mg/dl NEAR OR ABOVE OPTIMAL 130 - 159 mg/dl BORDERLINE HIGH 160 - 189 mg/dl HIGH >190 mg/dl VERY HIGH Performed By: #### C MADM, LIPA, BNP, CMP #### [facility] [address] [address] [address] Tasha Dodson Triglyceride [Mass/Vol] 75 mg/dL Normal <=150 [facility] Comment on above: Performed By: #### C MADM, LIPA, BNP, CMP #### [facility] [address] [address] [address] Tasha Dodson VLDL CALC 15.0 mg/dL Normal [facility] Comment on above: Performed By: #### C MADM, LIPA, BNP, CMP #### [facility] [address] [address] [address] Tasha Dodson LIVER PROFILEon 08-06-2021 Albumin [Mass/Vol] 3.7 g/dL Normal 3.4-5.0 [facility] Comment on above: Performed By: #### C MADM, LIPA, BNP, CMP #### [facility] [address] [address] [address] Tasha Dodson Albumin/Globulin [Mass ratio] 1.0 {ratio} Normal [facility] Comment on above: Performed By: #### C MADM, LIPA, BNP, CMP #### [facility] [address] [address] [address] Tasha Dodson ALP [Catalytic activity/Vol] 62 U/L Normal 46-116 [facility] Comment on above: Performed By: #### C MADM, LIPA, BNP, CMP #### [facility] [address] [address] [address] Tasha Dodson ALT [Catalytic activity/Vol] 26 U/L Normal 14-59 [facility] Comment on above: Performed By: #### C MADM, LIPA, BNP, CMP #### [facility] [address] [address] [address] Tasha Dodson AST [Catalytic activity/Vol] 24 U/L Normal 15-37 [facility] Comment on above: Performed By: #### C MADM, LIPA, BNP, CMP #### [facility] [address] [address] [address] Tasha Dodson BILI, CONJUGATED 0.1 mg/dL Normal 0.0-0.2 [facility] Comment on above: Performed By: #### C MADM, LIPA, BNP, CMP #### [facility] [address] [address] [address] Tasha Dodson Bilirubin [Mass/Vol] 0.5 mg/dL Normal 0.2-1.0 [facility] Comment on above: Performed By: #### C MADM, LIPA, BNP, CMP #### [facility] [address] [place] [address] Dr. Tasha Dodson Globulin (S) [Mass/Vol] 3.8 g/dL Normal [facility] Comment on above: Performed By: #### C MADM, LIPA, BNP, CMP #### [facility] [address] [place] [address] Dr. Tasha Dodson Protein [Mass/Vol] 7.5 g/dL Normal 6.4-8.2 [facility] Comment on above: Performed By: #### C MADM, LIPA, BNP, CMP #### [facility] [address] [place] [address] Dr. Tasha Dodson FREE T4on 07-28-2021 Free T4 [Mass/Vol] 1.32 ng/dL Normal 0.76-1.46 [facility] Comment on above: Performed By: #### T SH, BMP #### [facility] [address] [place] [address] Dr. Tasha Dodson PROF CHEM 8 (BAS METB)on Anion gap [Moles/Vol] 11.6 mmol/L Normal [facility] Comment on above: Performed By: #### B MP, TSH #### [facility] [address] [place] [address] Dr. Tasha Dodson Calcium [Mass/Vol] 9.4 mg/dL Normal 8.5-10.1 [facility] Comment on above: Performed By: #### B MP, TSH #### [facility] [address] [place] [address] Dr. Tasha Dodson Chloride [Moles/Vol] 93 mmol/L Critically low 98-107 [facility] Comment on above: Performed By: #### B MP, TSH #### [facility] [address] [place] [address] Dr. Tasha Dodson CO2 [Moles/Vol] 29.8 mmol/L Normal 21.0-32.0 [facility] Comment on above: Performed By: #### B MP, TSH #### [facility] [address] [address] [address] Tasha Dodson Creatinine [Mass/Vol] 0.74 mg/dL Normal 0.55-1.02 [facility] Comment on above: Performed By: #### B MP, TSH #### [facility] [address] [address] [address] Tasha Dodson EGFR-AF TURKMEN >60 Normal >=60 [facility] Comment on above: Performed By: #### B MP, TSH #### [facility] [address] [address] [address] Tasha Dodson EGFR-NON AF TURKMEN >60 Normal >=60 [facility] Comment on above: Performed By: #### B MP, TSH #### [facility] [address] [address] [address] Tasha Dodson Glucose [Mass/Vol] 114 mg/dL Critically high 74-106 [facility] Comment on above: Performed By: #### B MP, TSH #### [facility] [address] [address] [address] Tasha Dodson Potassium [Moles/Vol] 3.4 mmol/L Critically low 3.5-5.1 [facility] Comment on above: Performed By: #### B MP, TSH #### [facility] [address] [address] [address] Tasha Dodson Sodium [Moles/Vol] 131 mmol/L Critically low 136-145 Th [facility] Comment on above: Performed By: #### B MP, TSH #### [facility] [address] [address] [address] Tasha Dodson Urea nitrogen [Mass/Vol] 12.0 mg/dL Normal 7.0-18.0 [facility] Comment on above: Performed By: #### B MP, TSH #### [facility] [address] [address] [address] Tasha Dodson Urea nitrogen/Creatinine [Mass ratio] 16.2 mg/mg Normal [facility] Comment on above: Performed By: #### B MP, TSH #### [facility] [address] [address] [address] Tasha Dodson TSHon 07-28-2021 TSH 1.790 uIU/mL Normal 0.358-3.740 [facility] Comment on above: Performed By: #### B MP, TSH #### [facility] [address] [address] [address] Tasha Dodson TSH RANGE SEE BELOW Normal [facility] Comment on above: Result Comment: <0.3 4 UIU/ml HYPERTHYROID 0.34-5.60 UIU/ml EUTHYROID >5.60 UIU/ml HYPOTHYROID Performed By: #### B MP, TSH #### [facility] [address] [address] [address] Tasha Dodson CBC Auto Differentialon 10-0 Basophils (Bld) [#/Vol] 0.1 10*3/uL 0 - 0.2 K/u L [place] Basophils/100 WBC (Bld) 1.1 % [place] Eosinophils (Bld) [#/Vol] 0.2 10*3/uL 0 - 0.7 K/uL [place] Eosinophils/100 WBC (Bld) 1.4 % [place] Erythrocyte distribution width (RBC) [Ratio] 14.4 % 11.5 - 14.5 % [place] Hematocrit (Bld) [Volume fraction] 33.6 % Low 37 - 47 % [place] Hemoglobin (Bld) [Mass/Vol] 11.1 g/dL Low 12 - 16 g/dL [place] Interpretation and review of laboratory results Abnormal [place] Lymphocytes (Bld) [#/Vol] 2.3 10*3/uL 1 - 4.8 K/uL [place] Lymphocytes/100 WBC (Bld) 18.0 % [place] MCH (RBC) [Entitic mass] 29.5 pg 27 - 31.3 p g [place] MCHC (RBC) [Mass/Vol] 33.0 % 33 - 37 % [place] MCV (RBC) [Entitic vol] 89.5 fL 82 - 100 fL [place] Monocytes (Bld) [#/Vol] 0.9 10*3/uL High 0.2 - 0.8 K/uL [place] Monocytes/100 WBC (Bld) 6.9 % [place] Neutrophils Absolute 9.1 K/uL High 1.4 - 6 .5 K/uL [place] Neutrophils/100 WBC (Bld) 72.6 % [place] Platelets (Bld) [#/Vol] 548 10*3/uL High 130 - 400 K/uL [place] RBC (Bld) [#/Vol] 3.75 10*6/uL Low [place] WBC (Bld) [#/Vol] 12.5 10*3/uL High 4.8 - 10.8 K/uL [place] CBC With Platelet and Differ entialon 11-20-2018 Basophils (Bld) [#/Vol] 0.1 10*3/uL Normal 0.0-0.2 [facility] Comment on above: Performed By: #### E SR #### [facility] [address] [facility] [address] Basophils/100 WBC (Bld) 1.1 % Normal [facility] [place] [facility] Comment on above: Performed By: #### E SR #### [facility] [address] [facility] [address] Eosinophils (Bld) [#/Vol] 0.2 10*3/uL Normal 0.0-0.7 [facility] Comment on above: Performed By: #### E SR #### [facility] [address] [facility] [address] Eosinophils/100 WBC (Bld) 1.4 % Normal [facility] Comment on above: Performed By: #### E SR #### [facility] [address] [facility] [address] Erythrocyte distribution width (RBC) [Ratio] 14.4 % Normal 11.5-14.5 [facility] Comment on above: Performed By: #### E SR #### [facility] [address] [place] [address] Hematocrit (Bld) [Volume fraction] 33.6 % Low 37.0-47.0 [facility] Comment on above: Performed By: #### E SR #### [facility] [address] [place] [address] Hemoglobin (Bld) [Mass/Vol] 11.1 g/dL Low 12.0-16.0 [facility] Comment on above: Performed By: #### E SR #### [facility] [address] [place] [address] Lymphocytes (Bld) [#/Vol] 2.3 10*3/uL Normal 1.0-4.8 [facility] Comment on above: Performed By: #### E SR #### [facility] [address] [place] [address] Lymphocytes/100 WBC (Bld) 18.0 % Normal [facility] Comment on above: Performed By: #### E SR #### [facility] [address] [place] [address] MCH (RBC) [Entitic mass] 29.5 pg Normal 27.0-31.3 [facility] Comment on above: Performed By: #### E SR #### [facility] [address] [place] [address] MCHC (RBC) [Mass/Vol] 33.0 % Normal 33.0-37.0 [facility] Comment on above: Performed By: #### E SR #### [facility] [address] [place] [address] MCV (RBC) [Entitic vol] 89.5 fL Normal 82.0-100.0 M [facility] Comment on above: Performed By: #### E SR #### [facility] [address] [place] [address] Monocytes (Bld) [#/Vol] 0.9 10*3/uL Critically high 0.2-0. 8 [facility] Comment on above: Performed By: #### E SR #### [facility] [address] [place] [address] Monocytes/100 WBC (Bld) 6.9 % Normal M [facility] Comment on above: Performed By: #### E SR #### [facility] [address] [address] Neutrophils (Bld) [#/Vol] 9.1 10*3/uL Critically high 1.4-6.5 [facility] Comment on above: Performed By: #### E SR #### [facility] [address] [address] Neutrophils/100 WBC (Bld) 72.6 % Normal [facility] Comment on above: Performed By: #### E SR #### [facility] [address] [place] [place] [address] Platelets (Bld) [#/Vol] 548 10*3/uL Critically high 130-40 0 [facility] Comment on above: Performed By: #### E SR #### [facility] [address] [place] [place] [address] RBC (Bld) [#/Vol] 3.75 10*6/uL Low 4.20-5.40 [facility] Comment on above: Performed By: #### E SR #### [facility] [address] [place] [address] WBC (Bld) [#/Vol] 12.5 10*3/uL Critically high 4.8-10.8 [facility] Comment on above: Performed By: #### E SR #### [facility] [address] [address] EKG 12 Leadon 11-20-2018 Atrial Rate 79 BPM [facility], [place] P [place] 58 degrees [facility], [place] P-R Interval 176 ms [place] Q-T Interval 404 ms [place] QRS Duration 130 ms [place] QTc Calculation (Bazett) 463 ms [place] R [place] -11 degrees [facility], [place] T [place] 5 degrees [place] Urea nitrogen [Mass/Vol] Normal sinus rh ythm Right bundle branch block Moderate voltage criteria for LVH, may be normal variant Abnormal ECG When compared with ECG of 13-NOV-2018 08:33, No significant change was found Confirmed by Анна Zamarripa ([id number]) on 11/20/2018 9:39:56 AM [place] Ventricular Rate 79 BPM [place], [place] Joseph, Chpo Incoming Results From [facility] - 11/20/2018 9:40 AM EDT Normal sinus rhythm Right bundle branch block Moderate voltage criteria for LVH, may be normal variant Abnormal ECG When compared with ECG of 13-NOV-2018 08:33, No significant change was found Confirmed by Анна Zamarripa ([id number]) on 11/20/2018 9:39:56 AM [place] CBC Auto Differentialon 10-23 Neutrophils Absolute 6.1 K/uL 1.4 - 6 .5 K/uL [place] CBC With Platelet and Differ entialon 11-19-2018 Basophils (Bld) [#/Vol] 0.2 10*3/uL Normal 0.0-0.2 [place] Comment on above: Performed By: #### C MP #### [facility] [address] [address] Basophils/100 WBC (Bld) 1.5 % Normal M [place] Comment on above: Performed By: #### C MP #### [facility] [address] [place] [address] Eosinophils (Bld) [#/Vol] 0.3 10*3/uL Normal 0.0-0.7 [place] Comment on above: Performed By: #### C MP #### [facility] [address] [place] [address] Eosinophils/100 WBC (Bld) 2.5 % Normal [place] Comment on above: Performed By: #### C MP #### [facility] [address] [place] [address] Erythrocyte distribution width (RBC) [Ratio] 14.1 % Normal 11.5-14.5 [place] Comment on above: Performed By: #### C MP #### [facility] [address] [place] [address] Hematocrit (Bld) [Volume fraction] 29.3 % Low 37.0-47.0 [place] Comment on above: Performed By: #### C MP #### [facility] [address] [place] [place] [address] Hemoglobin (Bld) [Mass/Vol] 10.1 g/dL Low 12.0-16.0 [place] Comment on above: Performed By: #### C MP #### [facility] [address] [place] [address] Lymphocytes (Bld) [#/Vol] 2.8 10*3/uL Normal 1.0-4.8 [place] Comment on above: Performed By: #### C MP #### [facility] [address] [place] [address] Lymphocytes/100 WBC (Bld) 27.3 % Normal [place] Comment on above: Performed By: #### C MP #### [facility] [address] [place] [address] MCH (RBC) [Entitic mass] 30.7 pg Normal 27.0-31.3 [place] Comment on above: Performed By: #### C MP #### [facility] [address] [place] [address] MCHC (RBC) [Mass/Vol] 34.6 % Normal 33.0-37.0 [place] Comment on above: Performed By: #### C MP #### [facility] [address] [place] [address] MCV (RBC) [Entitic vol] 88.9 fL Normal 82.0-100.0 [place] Comment on above: Performed By: #### C MP #### [facility] [address] [place] [address] Monocytes (Bld) [#/Vol] 0.9 10*3/uL Critically high 0.2-0. 8 [place] Comment on above: Performed By: #### C MP #### [facility] [address] [place] [address] Monocytes/100 WBC (Bld) 9.2 % Normal [place] Comment on above: Performed By: #### C MP #### [facility] [address] [place] [address] Neutrophils (Bld) [#/Vol] 6.1 10*3/uL Normal 1.4-6.5 [facility] Comment on above: Performed By: #### C MP #### [facility] [address] [place] [address] Neutrophils/100 WBC (Bld) 59.5 % Normal [place] Comment on above: Performed By: #### C MP #### [facility] [address] [place] [address] Platelets (Bld) [#/Vol] 396 10*3/uL Normal 130-400 [place] Comment on above: Performed By: #### C MP #### [facility] [address] [place] [address] RBC (Bld) [#/Vol] 3.30 10*6/uL Low 4.20-5.40 [place] Comment on above: Performed By: #### C MP #### [facility] [address] [place] [address] WBC (Bld) [#/Vol] 10.2 10*3/uL Normal 4.8-10.8 [place] Comment on above: Performed By: #### C MP #### [facility] [address] [place] [address] High Sensitivity CRPon 11-19 High Sensitivity CRP 89.2 mg/L Critically high 0.0-5.0 [facility] Comment on above: Performed By: #### E SR #### [facility] [address] [place] [address] High sensitivity CRPon 11-19 CRP High Sensitivity 89.2 mg/L High 0 - 5 mg/L [place] Interpretation and review of laboratory results Abnormal [place] Otheron 11-19-2018 Interpretation and review of laboratory results Abnormal [place] Sedimentation Rateon 019 Sedimentation Rate 55 mm Critically high 0-30 M [facility] Comment on above: Performed By: #### C MP #### [facility] [address] [place] [address] Sed Rate 55 mm High 0 - 30 mm [place] Basic Metabolic Panelon 10-22 Anion gap [Moles/Vol] 14 mmol/L Normal 9-15 [facility] Comment on above: Performed By: #### C MP #### [facility] [address] [place] [address] Calcium [Mass/Vol] 8.8 mg/dL Normal 8.5-9.9 [facility] Comment on above: Performed By: #### C MP #### [facility] [address] [place] [address] Chloride [Moles/Vol] 95 mmol/L Normal 95-107 [facility] Comment on above: Performed By: #### C MP #### [facility] [address] [place] [address] CO2 [Moles/Vol] 26 mmol/L Normal 20-31 [facility] Comment on above: Performed By: #### C MP #### [facility] [address] [place] [address] Creatinine [Mass/Vol] 0.58 mg/dL Normal 0.50-0.90 [facility] Comment on above: Performed By: #### C MP #### [facility] [address] [place] [address] GFR/1.73 sq M predicted among blacks MDRD (S/P/Bld) [Vol rate/Area] mL/min/{1.73_m2} Normal >60 [facility] Comment on above: Result Comment: >60 mL/min/1.73m2 EGFR, calc. for ages 18 and older using the MDRD formula (not corrected for weight), is valid for stable renal function. Performed By: #### C MP #### [facility] [address] [address] GFR/1.73 sq M.predicted MDRD (S/P/Bld) [Vol rate/Area] mL/min/{1.73_m2} Normal >60 [facility] Comment on above: Result Comment: >60 mL/min/1.73m2 EGFR, calc. for ages 18 and older using the MDRD formula (not corrected for weight), is valid for stable renal function. Performed By: #### C MP #### [facility] [address] [place] [address] Glucose [Mass/Vol] 156 mg/dL Critically high 70-99 [facility] [place] Comment on above: Performed By: #### C MP #### [facility] [address] [place] [address] Potassium [Moles/Vol] 3.3 mmol/L Low 3.4-4.9 [facility] Comment on above: Performed By: #### C MP #### [facility] [address] [place] [address] Sodium [Moles/Vol] 135 mmol/L Normal 135-144 [facility] Comment on above: Performed By: #### C MP #### [facility] [address] [place] [address] Urea nitrogen [Mass/Vol] 11 mg/dL Normal 8-23 [facility] Comment on above: Performed By: #### C MP #### [facility] [address] [place] [address] Anion gap [Moles/Vol] 14 mmol/L [place] Calcium [Mass/Vol] 8.8 mg/dL 8.5 - 9.9 mg/dL [place] Chloride [Moles/Vol] 95 mmol/L [place] CO2 [Moles/Vol] 26 mmol/L [place], [place] Creatinine [Mass/Vol] 0.58 mg/dL 0.5 - 0.9 mg/dL [place] GFR >60.0 >60 [place] Comment on above: >60 mL/min/1.73m2 EG FR, calc. for ages 18 and older using the MDRD formula (not corrected for weight), is valid for stable renal function. GFR Non- >60.0 >60 [place] Comment on above: >60 mL/min/1.73m2 EG FR, calc. for ages 18 and older using the MDRD formula (not corrected for weight), is valid for stable renal function. Glucose [Mass/Vol] 156 mg/dL High 70 - 99 mg/dL [place] Interpretation and review of laboratory results Abnormal [place] Potassium [Moles/Vol] 3.3 mmol/L Low [place] Sodium [Moles/Vol] 135 mmol/L [place] Urea nitrogen [Mass/Vol] 11 mg/dL 8 - 23 mg/d L [place] Magnesiumon 11-18-2018 Magnesium [Mass/Vol] 1.8 mg/dL Normal 1.7-2.4 [facility] Comment on above: Performed By: #### C MP #### [facility] [address] [facility] [address] Magnesium [Mass/Vol] 1.8 mg/dL 1.7 - 2 .4 mg/dL [place] TSH w/out Reflexon 9 TSH Qn 0.880 uIU/mL Normal 0.440-3.86 [facility] Comment on above: Performed By: #### C MP #### [facility] [address] [place] [address] TSH without Reflexon 019 TSH Qn 0.880 m[IU]/L [place] CBC Auto Differentialon 10-22 Basophils (Bld) [#/Vol] 0.1 10*3/uL 0 - 0.2 K/u L [place] Basophils/100 WBC (Bld) 0.7 % [place] Eosinophils (Bld) [#/Vol] 0.4 10*3/uL 0 - 0.7 K/uL [place] Eosinophils/100 WBC (Bld) 2.8 % [place] Erythrocyte distribution width (RBC) [Ratio] 14.2 % 11.5 - 14.5 % [place] Hematocrit (Bld) [Volume fraction] 32.3 % Low 37 - 47 % [place] Hemoglobin (Bld) [Mass/Vol] 10.8 g/dL Low 12 - 16 g/dL [place] Interpretation and review of laboratory results Abnormal [place] Lymphocytes (Bld) [#/Vol] 2.6 10*3/uL 1 - 4.8 K/uL [place] Lymphocytes/100 WBC (Bld) 16.8 % [place] MCH (RBC) [Entitic mass] 30.3 pg 27 - 31.3 p g [place] MCHC (RBC) [Mass/Vol] 33.4 % 33 - 37 % [place] MCV (RBC) [Entitic vol] 90.5 fL 82 - 100 fL [place] Monocytes (Bld) [#/Vol] 1.3 10*3/uL High 0.2 - 0.8 K/uL [place] Monocytes/100 WBC (Bld) 8.3 % [place] Neutrophils Absolute 11.1 K/uL High 1.4 - 6 .5 K/uL [place] Neutrophils/100 WBC (Bld) 71.4 % [place] Platelets (Bld) [#/Vol] 375 10*3/uL 130 - 400 K/uL [place] RBC (Bld) [#/Vol] 3.57 10*6/uL Low [place] WBC (Bld) [#/Vol] 15.5 10*3/uL High 4.8 - 10.8 K/uL [place] CBC With Platelet and Differ entialon 11-17-2018 Basophils (Bld) [#/Vol] 0.1 10*3/uL Normal 0.0-0.2 [facility] Comment on above: Performed By: #### C MP #### [facility] [address] [place] [address] Basophils/100 WBC (Bld) 0.7 % Normal [facility] [place] Comment on above: Performed By: #### C MP #### [facility] [address] [place] [address] Eosinophils (Bld) [#/Vol] 0.4 10*3/uL Normal 0.0-0.7 [facility] Comment on above: Performed By: #### C MP #### [facility] [address] [place] [address] Eosinophils/100 WBC (Bld) 2.8 % Normal [facility] Comment on above: Performed By: #### C MP #### [facility] [address] [place] [address] Erythrocyte distribution width (RBC) [Ratio] 14.2 % Normal 11.5-14.5 [facility] Comment on above: Performed By: #### C MP #### [facility] [address] [place] [address] Hematocrit (Bld) [Volume fraction] 32.3 % Low 37.0-47.0 [facility] Comment on above: Performed By: #### C MP #### [facility] [address] [place] [place] [address] Hemoglobin (Bld) [Mass/Vol] 10.8 g/dL Low 12.0-16.0 [facility] Comment on above: Performed By: #### C MP #### [facility] [address] [place] [address] Lymphocytes (Bld) [#/Vol] 2.6 10*3/uL Normal 1.0-4.8 [facility] Comment on above: Performed By: #### C MP #### [facility] [address] [place] [place] [address] Lymphocytes/100 WBC (Bld) 16.8 % Normal [facility] Comment on above: Performed By: #### C MP #### [facility] [address] [place] [address] MCH (RBC) [Entitic mass] 30.3 pg Normal 27.0-31.3 [facility] Comment on above: Performed By: #### C MP #### [facility] [address] [place] [address] MCHC (RBC) [Mass/Vol] 33.4 % Normal 33.0-37.0 [facility] Comment on above: Performed By: #### C MP #### [facility] [address] [place] [address] MCV (RBC) [Entitic vol] 90.5 fL Normal 82.0-100.0 M [facility] Comment on above: Performed By: #### C MP #### [facility] [address] [place] [place] [address] Monocytes (Bld) [#/Vol] 1.3 10*3/uL Critically high 0.2-0. 8 [facility] Comment on above: Performed By: #### C MP #### [facility] [address] [place] [address] Monocytes/100 WBC (Bld) 8.3 % Normal M [facility] Comment on above: Performed By: #### C MP #### [facility] [address] [place] [address] Neutrophils (Bld) [#/Vol] 11.1 10*3/uL Critically high 1.4-6.5 [facility] Comment on above: Performed By: #### C MP #### [facility] [address] [place] [address] Neutrophils/100 WBC (Bld) 71.4 % Normal [facility] Comment on above: Performed By: #### C MP #### [facility] [address] [place] [address] Platelets (Bld) [#/Vol] 375 10*3/uL Normal 130-400 [facility] Comment on above: Performed By: #### C MP #### [facility] [address] [place] [address] RBC (Bld) [#/Vol] 3.57 10*6/uL Low 4.20-5.40 [facility] Comment on above: Performed By: #### C MP #### [facility] [address] [place] [address] WBC (Bld) [#/Vol] 15.5 10*3/uL Critically high 4.8-10.8 [facility] Comment on above: Performed By: #### C MP #### [facility] [address] [place] [address] High Sensitivity CRPon 11-17 High Sensitivity CRP 230.1 mg/L Critically high 0.0-5.0 [facility] Comment on above: Performed By: #### C MP #### [facility] [address] [place] [address] High sensitivity CRPon 11-17 CRP High Sensitivity 230.1 mg/L High 0 - 5 mg/L [facility], [place] Interpretation and review of laboratory results Abnormal [facility], [place] Sedimentation Rateon 019 Sedimentation Rate 50 mm Critically high 0-30 M [facility] Comment on above: Performed By: #### C MP #### [facility] [address] [facility] [id number] [phone] Interpretation and review of laboratory results Abnormal [place] Sed Rate 50 mm High 0 - 30 mm [place] US DUP LOWER EXTREMITIES VAUGHN ATERAL VENOUSon 11-17-2018 NO DVT IDENTIFIED IN EITHER LOWER EXTREMITY. [place] Joseph, Chpo Incoming Radiant Results From [facility] - 11/17/2018 8:05 AM EDT US DUP [...] NO DVT IDENTIFIED IN EITHER LOWER EXTREMITY. [place] US DUP LOWER EXTREMITIES BILATERAL VENOUS : 11/16/2018 CLINICAL HISTORY: LEG SWELLING, PAIN, DVT SUSPECTED . COMPARISON: None available. Grayscale, compression, color and waveform Doppler analysis of both lower extremity deep venous systems was performed with augmentation. FINDINGS: There is no deep venous thrombosis, abnormal masses, fluid collections or other findings of concern identified within either lower extremity. [place] Urine Cultureon 11-17-2018 Bacteria identified Cx Nom (U) No growth 24 hours [place], [place] ORDERED BY: ADDY COKER SOURCE: Urine Clean Catch COLLECTED: 11/15/18 19:05 ANTIBIOTICS AT DI.: RECEIVED : 11/15/18 19:05 [place] CBC With Platelet and Differ entialon 11-16-2018 Neutrophils (Bld) [#/Vol] 15.5 10*3/uL Critically high 1.4-6.5 [facility] Comment on above: Performed By: #### P TT #### [facility] [address] [facility] [address] Basophils (Bld) [#/Vol] 0.2 10*3/uL Normal 0.0-0.2 [place] Comment on above: Performed By: #### P TT #### [facility] [address] [place] [address] Basophils/100 WBC (Bld) 0.9 % Normal [place] Comment on above: Performed By: #### P TT #### [facility] [address] [place] [address] Eosinophils (Bld) [#/Vol] 0.1 10*3/uL Normal 0.0-0.7 [place] Comment on above: Performed By: #### P TT #### [facility] [address] [place] [address] Eosinophils/100 WBC (Bld) 0.8 % Normal [place] Comment on above: Performed By: #### P TT #### [facility] [address] [facility] [address] Erythrocyte distribution width (RBC) [Ratio] 14.4 % Normal 11.5-14.5 [place] Comment on above: Performed By: #### P TT #### [facility] [address] [facility] [address] Hematocrit (Bld) [Volume fraction] 33.4 % Low 37.0-47.0 [place] Comment on above: Performed By: #### P TT #### [facility] [address] [place] [address] Hemoglobin (Bld) [Mass/Vol] 11.0 g/dL Low 12.0-16.0 [place] Comment on above: Performed By: #### P TT #### [facility] [address] [place] [address] Lymphocytes (Bld) [#/Vol] 1.5 10*3/uL Normal 1.0-4.8 [place] Comment on above: Performed By: #### P TT #### [facility] [address] [place] [address] Lymphocytes/100 WBC (Bld) 7.9 % Normal [place] Comment on above: Performed By: #### P TT #### [facility] [address] [place] [address] MCH (RBC) [Entitic mass] 29.4 pg Normal 27.0-31.3 [place] Comment on above: Performed By: #### P TT #### [facility] [address] [address] MCHC (RBC) [Mass/Vol] 32.9 % Low 33.0-37.0 [place] Comment on above: Performed By: #### P TT #### [facility] [address] [place] [address] MCV (RBC) [Entitic vol] 89.4 fL Normal 82.0-100.0 [place] Comment on above: Performed By: #### P TT #### [facility] [address] [place] [address] Monocytes (Bld) [#/Vol] 1.3 10*3/uL Critically high 0.2-0. 8 [place] Comment on above: Performed By: #### P TT #### [facility] [address] [place] [address] Monocytes/100 WBC (Bld) 7.1 % Normal [place] Comment on above: Performed By: #### P TT #### [facility] [address] [place] [address] Neutrophils/100 WBC (Bld) 83.3 % Normal [place] Comment on above: Performed By: #### P TT #### [facility] [address] [place] [address] Platelets (Bld) [#/Vol] 304 10*3/uL Normal 130-400 [place] Comment on above: Performed By: #### P TT #### [facility] [address] [place] [address] RBC (Bld) [#/Vol] 3.74 10*6/uL Low 4.20-5.40 [place] Comment on above: Performed By: #### P TT #### [facility] [address] [facility] [address] WBC (Bld) [#/Vol] 18.6 10*3/uL Critically high 4.8-10.8 [place] Comment on above: Performed By: #### P TT #### [facility] [address] [facility] [address] CBC auto differentialon 10-22 Interpretation and review of laboratory results Abnormal [place] Neutrophils Absolute 15.5 K/uL High 1.4 - 6 .5 K/uL [place] ECHO Complete 2D W Doppler W Coloron 11-16-2018 Transthoracic Echocardiography Report (TTE) Demographics Patient Name MERCY GANDHI Gender Female Patient Number [id number] Race Unknown Ethnicity Visit Number [id number] Room Number R238 Corporate ID Date of Study 11/16/2018 Referring Physician Niki Vazquez DO Number Date of 1935 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 Age 83 year(s) Interpreting [facility] Physician Cardiology Cain Quinonez [...] Gradient: 4.03 mmHg Estimated PASP: 40.86 mmHg [place] ED Velocity: 1.27 m/s LVOT Peak Velocity: [...] cm LVOT Diameter: 1.65 cm [facility] [place], [place] Joseph, Chpo Incoming Cardiovascular Results From [facility] - 11/16/2018 5:05 PM EDT Transthoracic Echocardiography Report (TTE) Demographics Patient Name MERCY GANHDI Gender Female Patient Number [id number] Race Unknown Ethnicity Visit Number [id number] Room Number R238 Corporate ID Date of Study 11/16/2018 Referring Physician Niki Vazquez DO Number Date of 1935 Private Tutor Althea Bella [facility] Age 83 year(s) Interpreting [facility] Physician Cardiology Cain Quinonez [...] Gradient: 4.03 mmHg Estimated PASP: 40.86 mmHg [place] ED Velocity: 1.27 m/s LVOT Peak Velocity: [...] Root: 2.35 cm LVOT Diameter: 1.65 cm [place] Microscopic Urinalysison Bacteria, UA Negative /HPF [place] Epi Cells 3-5 /HPF [place] Interpretation and review of laboratory results Abnormal [place] RBC (U) [#/Vol] 3-5 [facility] [place] [place] Renal Epithelial, Urine 0-2 Abnormal /HPF [place] WBC, UA None seen [place] US CAROTID ARTERY BILATERALo n 11-16-2018 [...] Damped resistive CCA decreased decreased resistive CCA [place] Joseph, Sarahpo Incoming Radiant Results From [employer] [facility] - 11/16/2018 10:40 AM EDT Patient : [...] Damped resistive CCA decreased decreased resistive CCA [facility] 1935 Age: 83 years Gender: [...] and noncalcified plaque bilateral carotid arterial systems [facility] US DUP LOWER EXTREMITIES VAUGHN ATERAL VENOUSon [...] [facility] [address] [place] [place] [address] Epithelial cells LM Ql (Urine sed) 3-5 Normal [facility] Comment on above: Performed By: #### P TT #### [facility] [address] [place] [address] RBC (U) [#/Vol] 3-5 Abnormal 0-2 [facility] Comment on above: Performed By: #### P TT #### [facility] [address] [place] [address] Urine Renal Epithelial 0-2 Abnormal [facility] Comment on above: Performed By: #### P TT #### [facility] [address] [place] [address] WBC (U) [#/Vol] None seen Normal 0-5 [facility] Comment on above: Performed By: #### P TT #### [facility] [address] [place] [address] XR CHEST PORTABLEon 11-17-19 19 Joseph, Chpo Incoming Radiant Results From [employer] - 11/16/2018 10:21 AM EDT EXAMINATION: XR CHEST PORTABLE CLINICAL HISTORY: fever . History of back surgery. COMPARISONS: None available. FINDINGS: Single AP portable view the chest obtained on November 15, 2018 at 2124 hours. The heart is not enlarged. Mediastinum is not widened. Calcified aorta is not dilated. Lungs are clear. The chest wall is unremarkable. CONCLUSION: NO ACUTE PROCESS [facility], [place] EXAMINATION: XR CHEST PORTABLE CLINICAL HISTORY: fever . History of back surgery. COMPARISONS: None available. FINDINGS: Single AP portable view the chest obtained on November 15, 2018 at 2124 hours. The heart is not enlarged. Mediastinum is not widened. Calcified aorta is not dilated. Lungs are clear. The chest wall is unremarkable. CONCLUSION: NO ACUTE PROCESS [place], [place] CBC Auto Differentialon 10-22 Anisocytosis Ql (Bld) 1+ [place] Bands Relative 4 % Low 5 - 11 % [place] Basophils (Bld) [#/Vol] 0.0 10*3/uL 0 - 0.2 K/u L [place] Basophils/100 WBC (Bld) 0.6 % [place] Eosinophils (Bld) [#/Vol] 0.0 10*3/uL 0 - 0.7 K/uL [place] Eosinophils/100 WBC (Bld) 0.9 % [place] Erythrocyte distribution width (RBC) [Ratio] 14.6 % High 11.5 - 14.5 % [place] Hematocrit (Bld) [Volume fraction] 33.3 % Low 37 - 47 % [place] Hemoglobin (Bld) [Mass/Vol] 10.9 g/dL Low 12 - 16 g/dL [place] Interpretation and review of laboratory results Abnormal [place] Lymphocytes (Bld) [#/Vol] 3.5 10*3/uL 1 - 4.8 K/uL [place] Lymphocytes/100 WBC (Bld) 17.0 % [place] MCH (RBC) [Entitic mass] 29.8 pg 27 - 31.3 p g [place] MCHC (RBC) [Mass/Vol] 32.9 % Low 33 - 37 % [place] MCV (RBC) [Entitic vol] 90.7 fL 82 - 100 fL [place] Microcytes 1+ [place] Monocytes (Bld) [#/Vol] 0.0 10*3/uL Low 0.2 - 0.8 K/uL [place] Monocytes/100 WBC (Bld) 7.7 % [place] Neutrophils Absolute 17.3 K/uL High 1.4 - 6 .5 K/uL [place] Neutrophils/100 WBC (Bld) 79.0 % [place] PLATELET SLIDE REVIEW Normal [place] Platelets (Bld) [#/Vol] 315 10*3/uL 130 - 400 K/uL [place] RBC (Bld) [#/Vol] 3.67 10*6/uL Low [place] WBC (Bld) [#/Vol] 20.8 10*3/uL High 4.8 - 10.8 K/uL [place] CBC With Platelet No Differe ntialon 11-15-2018 Erythrocyte distribution width (RBC) [Ratio] 14.5 % Normal 11.5-14.5 [facility] Comment on above: Performed By: #### P TT #### [facility] [address] [place] [address] Hematocrit (Bld) [Volume fraction] 36.9 % Low 37.0-47.0 [facility] Comment on above: Performed By: #### P TT #### [facility] [address] [place] [address] Hemoglobin (Bld) [Mass/Vol] 11.9 g/dL Low 12.0-16.0 [facility] Comment on above: Performed By: #### P TT #### [facility] [address] [place] [address] MCH (RBC) [Entitic mass] 29.4 pg Normal 27.0-31.3 [facility] Comment on above: Performed By: #### P TT #### [facility] [address] [place] [address] MCHC (RBC) [Mass/Vol] 32.3 % Low 33.0-37.0 [facility] Comment on above: Performed By: #### P TT #### [facility] [address] [place] [address] MCV (RBC) [Entitic vol] 91.1 fL Normal 82.0-100.0 M [facility] Comment on above: Performed By: #### P TT #### [facility] [address] [place] [address] Platelets (Bld) [#/Vol] 341 10*3/uL Normal 130-400 [facility] Comment on above: Performed By: #### P TT #### [facility] [address] [place] [address] RBC (Bld) [#/Vol] 4.05 10*6/uL Low 4.20-5.40 [facility] Comment on above: Performed By: #### P TT #### [facility] [address] [place] [address] WBC (Bld) [#/Vol] 19.8 10*3/uL Critically high 4.8-10.8 [facility] Comment on above: Performed By: #### P TT #### [facility] [address] [place] [address] CBC With Platelet and Differ entialon 11-15-2018 Anisocytosis Ql (Bld) 1+ Normal [facility] Comment on above: Performed By: #### P TT #### [facility] [address] [place] [address] Bands 4 % Low 5-11 [facility] Comment on above: Performed By: #### P TT #### [facility] [address] [place] [address] Basophils (Bld) [#/Vol] 0.0 10*3/uL Normal 0.0-0.2 [facility] Comment on above: Performed By: #### P TT #### [facility] [address] [place] [address] Basophils/100 WBC (Bld) 0.6 % Normal M [facility] Comment on above: Performed By: #### P TT #### [facility] [address] [place] [address] Eosinophils (Bld) [#/Vol] 0.0 10*3/uL Normal 0.0-0.7 [facility] Comment on above: Performed By: #### P TT #### [facility] [address] [place] [address] Eosinophils/100 WBC (Bld) 0.9 % Normal [facility] Comment on above: Performed By: #### P TT #### [facility] [address] [place] [address] Lymphocytes (Bld) [#/Vol] 3.5 10*3/uL Normal 1.0-4.8 [facility] Comment on above: Performed By: #### P TT #### [facility] [address] [place] [address] Lymphocytes/100 WBC (Bld) 17.0 % Normal [facility] Comment on above: Performed By: #### P TT #### [facility] [address] [place] [address] Microcytic 1+ Normal [facility] Comment on above: Performed By: #### P TT #### [facility] [address] [place] [address] Monocytes (Bld) [#/Vol] 0.0 10*3/uL Low 0.2-0.8 [facility] Comment on above: Performed By: #### P TT #### [facility] [address] [place] [address] Monocytes/100 WBC (Bld) 7.7 % Normal [facility] [place] Comment on above: Performed By: #### P TT #### [facility] [address] [place] [address] Neutrophils (Bld) [#/Vol] 17.3 10*3/uL Critically high 1.4-6.5 [facility] Comment on above: Performed By: #### P TT #### [facility] [address] [place] [address] Neutrophils/100 WBC (Bld) 79.0 % Normal [facility] Comment on above: Performed By: #### P TT #### [facility] [address] [place] [address] Platelet Slide Review Normal Normal [facility] Comment on above: Performed By: #### P TT #### [facility] [address] [place] [address] Erythrocyte distribution width (RBC) [Ratio] 14.6 % Critically high 11.5-14.5 [facility] Comment on above: Performed By: #### P TT #### [facility] [address] [place] [address] Hematocrit (Bld) [Volume fraction] 33.3 % Low 37.0-47.0 [facility] Comment on above: Performed By: #### P TT #### [facility] [address] [place] [address] Hemoglobin (Bld) [Mass/Vol] 10.9 g/dL Low 12.0-16.0 [facility] Comment on above: Performed By: #### P TT #### [facility] [address] [place] [address] MCH (RBC) [Entitic mass] 29.8 pg Normal 27.0-31.3 [facility] Comment on above: Performed By: #### P TT #### [facility] [address] [place] [address] MCHC (RBC) [Mass/Vol] 32.9 % Low 33.0-37.0 [facility] Comment on above: Performed By: #### P TT #### [facility] [address] [place] [address] MCV (RBC) [Entitic vol] 90.7 fL Normal 82.0-100.0 M [facility] Comment on above: Performed By: #### P TT #### [facility] [address] [place] [address] Platelets (Bld) [#/Vol] 315 10*3/uL Normal 130-400 [facility] Comment on above: Performed By: #### P TT #### [facility] [address] [place] [address] RBC (Bld) [#/Vol] 3.67 10*6/uL Low 4.20-5.40 [facility] Comment on above: Performed By: #### P TT #### [facility] [address] [place] [address] WBC (Bld) [#/Vol] 20.8 10*3/uL Critically high 4.8-10.8 [facility] Comment on above: Performed By: #### P TT #### [facility] [address] [place] [address] Comprehensive Metabolic Pane l reflex Mgon 11-15-2018 Albumin [Mass/Vol] 3.3 g/dL Low 3.5-4.6 [facility] Comment on above: Performed By: #### P TT #### [facility] [address] [place] [address] ALP [Catalytic activity/Vol] 71 U/L Normal 40-130 [facility] Comment on above: Performed By: #### P TT #### [facility] [address] [place] [address] ALT [Catalytic activity/Vol] 12 U/L Normal 0-33 [facility] Comment on above: Performed By: #### P TT #### [facility] [address] [place] [address] Anion gap [Moles/Vol] 11 mmol/L Normal 9-15 [facility] Comment on above: Performed By: #### P TT #### [facility] [address] [place] [address] AST [Catalytic activity/Vol] 28 U/L Normal 0-35 [facility] Comment on above: Performed By: #### P TT #### [facility] [address] [place] [address] Bilirubin [Mass/Vol] 0.4 mg/dL Normal 0.2-0.7 [facility] Comment on above: Performed By: #### P TT #### [facility] [address] [place] [address] Calcium [Mass/Vol] 9.1 mg/dL Normal 8.5-9.9 [facility] Comment on above: Performed By: #### P TT #### [facility] [address] [place] [address] Chloride [Moles/Vol] 98 mmol/L Normal 95-107 [facility] Comment on above: Performed By: #### P TT #### [facility] [address] [place] [address] CO2 [Moles/Vol] 27 mmol/L Normal 20-31 [facility] Comment on above: Performed By: #### P TT #### [facility] [address] [place] [address] Creatinine [Mass/Vol] 0.59 mg/dL Normal 0.50-0.90 [facility] Comment on above: Performed By: #### P TT #### [facility] [address] [place] [address] GFR/1.73 sq M predicted among blacks MDRD (S/P/Bld) [Vol rate/Area] mL/min/{1.73_m2} Normal >60 [facility] Comment on above: Result Comment: >60 mL/min/1.73m2 EGFR, calc. for ages 18 and older using the MDRD formula (not corrected for weight), is valid for stable renal function. Performed By: #### P TT #### [facility] [address] [place] [address] GFR/1.73 sq M.predicted MDRD (S/P/Bld) [Vol rate/Area] mL/min/{1.73_m2} Normal >60 [facility] Comment on above: Result Comment: >60 mL/min/1.73m2 EGFR, calc. for ages 18 and older using the MDRD formula (not corrected for weight), is valid for stable renal function. Performed By: #### P TT #### [facility] [address] [place] [address] Globulin (S) [Mass/Vol] 3.2 g/dL Normal 2.3-3.5 [facility] [place] Comment on above: Performed By: #### P TT #### [facility] [address] [place] [address] Glucose [Mass/Vol] 123 mg/dL Critically high 70-99 M [facility] Comment on above: Performed By: #### P TT #### [facility] [address] [place] [address] Potassium reflex Mg 3.8 mEq/L Normal 3.4-4.9 [facility] Comment on above: Performed By: #### P TT #### [facility] [address] [place] [address] Protein [Mass/Vol] 6.5 g/dL Normal 6.3-8.0 [facility] Comment on above: Performed By: #### P TT #### [facility] [address] [place] [address] Sodium [Moles/Vol] 136 mmol/L Normal 135-144 [facility] Comment on above: Performed By: #### P TT #### [facility] [address] [place] [address] Urea nitrogen [Mass/Vol] 6 mg/dL Low 8-23 [facility] Comment on above: Performed By: #### P TT #### [facility] [address] [place] [address] Culture, Blood 2on 9 Culture, Blood 2 ORDERED BY: ADDY COKER SOURCE: Blood COLLECTED: 11/15/18 16:37 ANTIBIOTICS AT DI.: RECEIVED : 11/15/18 16:42 Culture, Blood 2 FINAL 11/20/18 18:15 No growth after 5 days of incubation. Normal [facility] Comment on above: Performed By: #### C MP #### [facility] [address] [place] [address] Culture, Urineon 11-15-2018 Culture, Urine ORDERED BY: ADDY COKER SOURCE: Urine Clean Catch COLLECTED: 11/15/18 19:05 ANTIBIOTICS AT DI.: RECEIVED : 11/15/18 19:05 Culture, Urine FINAL 11/17/18 07:28 No growth 24 hours Normal [facility] Comment on above: Performed By: #### C MP #### [facility] [address] [place] [address] URINE RT REFLEX TO CULTUREon 11-15-2018 Bilirubin Urine Negative Negative [place] Blood, Urine TRACE Abnormal Negative [place] Clarity, UA Clear Clear [place] Color, UA Yellow Straw/Yellow [place] Glucose, Ur Negative Negative mg/dL [place] Interpretation and review of laboratory results Abnormal [place] Ketones Ql (U) Negative Negative mg/dL [place] Leukocyte esterase Test strip Ql (U) Negative Negative [place] Nitrite, Urine Negative Negative [place] pH, UA 7.0 [place] Protein (U) [Mass/Vol] 30 mg/dL Abnormal Negative [place], [place] Specific [place], UA 1.014 [place] Urine Reflex to Culture YES M [place] Urobilinogen, Urine 0.2 <2.0 E.U./dL [place] CAROTID ARTERY BILATERALo n 11-15-2018 [...] #### [facility] [address] [place] [address] Clarity (U) Clear Normal Clear [facility] Comment on above: Performed By: #### P TT #### [facility] [address] [place] [address] Color (U) Yellow Normal Straw/[place] [facility] Comment on above: Performed By: #### P TT #### [facility] [address] [place] [address] Glucose Ql (U) Negative Normal Negative [facility] Comment on above: Performed By: #### P TT #### [facility] [address] [place] [address] Hemoglobin Ql (U) TRACE Abnormal Negative [facility] Comment on above: Performed By: #### P TT #### [facility] [address] [place] [address] Ketones Ql (U) Negative Normal Negative [facility] Comment on above: Performed By: #### P TT #### [facility] [address] [place] [address] Leukocyte esterase Test strip Ql (U) Negative Normal Negative [facility] Comment on above: Performed By: #### P TT #### [facility] [address] [place] [address] Nitrite Ql (U) Negative Normal Negative [facility] Comment on above: Performed By: #### P TT #### [facility] [address] [place] [address] pH (U) 7.0 [pH] Normal 5.0-9.0 [facility] Comment on above: Performed By: #### P TT #### [facility] [address] [place] [address] Protein Ql (U) 30 mg/dL Abnormal Negative [facility] Comment on above: Performed By: #### P TT #### [facility] [address] [place] [address] Specific gravity (U) [Rel density] 1.014 Normal 1.005-1.03 [facility] Comment on above: Performed By: #### P TT #### [facility] [address] [place] [address] Urine Reflexed to Culture YES Normal [facility] Comment on above: Performed By: #### P TT #### [facility] [address] [place] [address] Urobilinogen Qn (U) 0.2 {Juan'U}/dL Normal < 2.0 [facility] Comment on above: Performed By: #### P TT #### [facility] [address] [place] [address] XR CHEST PORTABLEon 11-16-19 XR CHEST PORTABLE [...] Anion gap [Moles/Vol] 10 mmol/L Normal 9-15 [facility] Comment on above: Performed By: #### P T #### [facility] [address] [place] [address] Calcium [Mass/Vol] 8.4 mg/dL Low 8.5-9.9 [facility] Comment on above: Performed By: #### P T #### [facility] [address] [place] [address] Chloride [Moles/Vol] 100 mmol/L Normal 95-107 [facility] Comment on above: Performed By: #### P T #### [facility] [address] [place] [address] CO2 [Moles/Vol] 25 mmol/L Normal 20-31 [facility] Comment on above: Performed By: #### P T #### [facility] [address] [place] [address] Creatinine [Mass/Vol] 0.66 mg/dL Normal 0.50-0.90 [facility] Comment on above: Performed By: #### P T #### [facility] [address] [place] [address] GFR/1.73 sq M predicted among blacks MDRD (S/P/Bld) [Vol rate/Area] mL/min/{1.73_m2} Normal >60 [facility] Comment on above: Result Comment: >60 mL/min/1.73m2 EGFR, calc. for ages 18 and older using the MDRD formula (not corrected for weight), is valid for stable renal function. Performed By: #### P T #### [facility] [address] [place] [address] GFR/1.73 sq M.predicted MDRD (S/P/Bld) [Vol rate/Area] mL/min/{1.73_m2} Normal >60 [facility] Comment on above: Result Comment: >60 mL/min/1.73m2 EGFR, calc. for ages 18 and older using the MDRD formula (not corrected for weight), is valid for stable renal function. Performed By: #### P T #### [facility] [address] [place] [address] Glucose [Mass/Vol] 144 mg/dL Critically high 70-99 M [facility] Comment on above: Performed By: #### P T #### [facility] [address] [place] [address] Potassium reflex Mg 4.1 mEq/L Normal 3.4-4.9 [facility] Comment on above: Performed By: #### P T #### [facility] [address] [place] [address] Sodium [Moles/Vol] 135 mmol/L Normal 135-144 [facility] Comment on above: Performed By: #### P T #### [facility] [address] [place] [address] Urea nitrogen [Mass/Vol] 6 mg/dL Low 8-23 [facility] Comment on above: Performed By: #### P T #### [facility] [address] [place] [place] [address] CBC With Platelet and Differ entialon 11-14-2018 Basophils (Bld) [#/Vol] 0.1 10*3/uL Normal 0.0-0.2 [facility] Comment on above: Performed By: #### P T #### [facility] [address] [place] [address] Basophils/100 WBC (Bld) 0.5 % Normal [facility] [place] Comment on above: Performed By: #### P T #### [facility] [address] [place] [place] [address] Eosinophils (Bld) [#/Vol] 0.1 10*3/uL Normal 0.0-0.7 [facility] Comment on above: Performed By: #### P T #### [facility] [address] [place] [address] Eosinophils/100 WBC (Bld) 0.8 % Normal [facility] Comment on above: Performed By: #### P T #### [facility] [address] [place] [address] Erythrocyte distribution width (RBC) [Ratio] 14.1 % Normal 11.5-14.5 [facility] Comment on above: Performed By: #### P T #### [facility] [address] [place] [address] Hematocrit (Bld) [Volume fraction] 35.4 % Low 37.0-47.0 [facility] Comment on above: Performed By: #### P T #### [facility] [address] [place] [address] Hemoglobin (Bld) [Mass/Vol] 11.7 g/dL Low 12.0-16.0 [facility] Comment on above: Performed By: #### P T #### [facility] [address] [place] [address] Lymphocytes (Bld) [#/Vol] 2.7 10*3/uL Normal 1.0-4.8 [facility] Comment on above: Performed By: #### P T #### [facility] [address] [place] [address] Lymphocytes/100 WBC (Bld) 15.7 % Normal [facility] Comment on above: Performed By: #### P T #### [facility] [address] [place] [address] MCH (RBC) [Entitic mass] 29.7 pg Normal 27.0-31.3 [facility] Comment on above: Performed By: #### P T #### [facility] [address] [place] [address] MCHC (RBC) [Mass/Vol] 33.1 % Normal 33.0-37.0 [facility] Comment on above: Performed By: #### P T #### [facility] [address] [place] [address] MCV (RBC) [Entitic vol] 89.6 fL Normal 82.0-100.0 [facility] [place] Comment on above: Performed By: #### P T #### [facility] [address] [place] [address] Monocytes (Bld) [#/Vol] 1.4 10*3/uL Critically high 0.2-0. 8 [facility] Comment on above: Performed By: #### P T #### [facility] [address] [place] [address] Monocytes/100 WBC (Bld) 7.9 % Normal [facility] [place] Comment on above: Performed By: #### P T #### [facility] [address] [place] [address] Neutrophils (Bld) [#/Vol] 12.8 10*3/uL Critically high 1.4-6.5 [facility] Comment on above: Performed By: #### P T #### [facility] [address] [place] [address] Neutrophils/100 WBC (Bld) 75.1 % Normal [facility] Comment on above: Performed By: #### P T #### [facility] [address] [place] [address] Platelets (Bld) [#/Vol] 345 10*3/uL Normal 130-400 [facility] Comment on above: Performed By: #### P T #### [facility] [address] [place] [address] RBC (Bld) [#/Vol] 3.95 10*6/uL Low 4.20-5.40 [facility] Comment on above: Performed By: #### P T #### [facility] [address] [place] [address] WBC (Bld) [#/Vol] 17.0 10*3/uL Critically high 4.8-10.8 [facility] Comment on above: Performed By: #### P T #### [facility] [address] [place] [address] POCT Glucoseon 11-14-2018 Glucose [Mass/Vol] 116 mg/dL Critically high 60-115 M [facility] Comment on above: Performed By: #### P T #### [facility] [address] [place] [address] POC Performed on ACCU-CHEK Normal [facility] Comment on above: Performed By: #### P T #### [facility] [address] [place] [address] XR LUMBAR SPINE (2-3 VIEWS)o n 11-14-2018 [...] Anion gap [Moles/Vol] 13 mmol/L Normal 9-15 [facility] Comment on above: Performed By: #### P T #### [facility] [address] [place] [address] Calcium [Mass/Vol] 9.0 mg/dL Normal 8.5-9.9 [facility] Comment on above: Performed By: #### P T #### [facility] [address] [place] [address] Chloride [Moles/Vol] 101 mmol/L Normal 95-107 [facility] Comment on above: Performed By: #### P T #### [facility] [address] [place] [address] CO2 [Moles/Vol] 24 mmol/L Normal 20-31 [facility] Comment on above: Performed By: #### P T #### [facility] [address] [place] [address] Creatinine [Mass/Vol] 0.62 mg/dL Normal 0.50-0.90 [facility] Comment on above: Performed By: #### P T #### [facility] [address] [place] [address] GFR/1.73 sq M predicted among blacks MDRD (S/P/Bld) [Vol rate/Area] mL/min/{1.73_m2} Normal >60 [facility] Comment on above: Result Comment: >60 mL/min/1.73m2 EGFR, calc. for ages 18 and older using the MDRD formula (not corrected for weight), is valid for stable renal function. Performed By: #### P T #### [facility] [address] [place] [address] GFR/1.73 sq M.predicted MDRD (S/P/Bld) [Vol rate/Area] mL/min/{1.73_m2} Normal >60 [facility] Comment on above: Result Comment: >60 mL/min/1.73m2 EGFR, calc. for ages 18 and older using the MDRD formula (not corrected for weight), is valid for stable renal function. Performed By: #### P T #### [facility] [address] [place] [address] Glucose [Mass/Vol] 136 mg/dL Critically high 70-99 M [facility] Comment on above: Performed By: #### P T #### [facility] [address] [place] [address] Potassium reflex Mg 3.6 mEq/L Normal 3.4-4.9 [facility] Comment on above: Performed By: #### P T #### [facility] [address] [place] [address] Sodium [Moles/Vol] 138 mmol/L Normal 135-144 [facility] Comment on above: Performed By: #### P T #### [facility] [address] [place] [address] Urea nitrogen [Mass/Vol] 7 mg/dL Low 8-23 [facility] Comment on above: Performed By: #### P T #### [facility] [address] [place] [address] CBC With Platelet No Differe ntialon 11-13-2018 Erythrocyte distribution width (RBC) [Ratio] 14.2 % Normal 11.5-14.5 [facility] Comment on above: Performed By: #### P T #### [facility] [address] [place] [address] Hematocrit (Bld) [Volume fraction] 40.3 % Normal 37.0-47.0 [facility] Comment on above: Performed By: #### P T #### [facility] [address] [place] [address] Hemoglobin (Bld) [Mass/Vol] 13.1 g/dL Normal 12.0-16.0 [facility] Comment on above: Performed By: #### P T #### [facility] [address] [place] [address] MCH (RBC) [Entitic mass] 29.1 pg Normal 27.0-31.3 [facility] Comment on above: Performed By: #### P T #### [facility] [address] [place] [address] MCHC (RBC) [Mass/Vol] 32.4 % Low 33.0-37.0 [facility] Comment on above: Performed By: #### P T #### [facility] [address] [place] [address] MCV (RBC) [Entitic vol] 89.9 fL Normal 82.0-100.0 M [facility] Comment on above: Performed By: #### P T #### [facility] [address] [place] [address] Platelets (Bld) [#/Vol] 394 10*3/uL Normal 130-400 [facility] Comment on above: Performed By: #### P T #### [facility] [address] [place] [address] RBC (Bld) [#/Vol] 4.48 10*6/uL Normal 4.20-5.40 [facility] Comment on above: Performed By: #### P T #### [facility] [address] [place] [address] WBC (Bld) [#/Vol] 11.8 10*3/uL Critically high 4.8-10.8 [facility] Comment on above: Performed By: #### P T #### [facility] [address] [place] [address] Culture, MRSA Screenon 11-13 Culture, MRSA Screen ORDERED BY: BRENNAN HERRON SOURCE: Nares COLLECTED: 11/13/18 09:29 ANTIBIOTICS AT DI.: RECEIVED : 11/13/18 09:29 Culture, MRSA Screen FINAL 11/14/18 08:02 No MRSA isolated Normal [facility] Comment on above: Performed By: #### P T #### [facility] [address] [place] [address] FLUORO FOR SURGICAL PROCEDUR ESon 11-13-2018 FLUORO [...] [facility]-14[facility]19 Surgical Specimen [facility] [address] [place] [id number] FINAL SURGICAL PATHOLOGY REPORT Patient Name: HIRAM MADRID Accession No: [id number] Age Sex: 1935 Location: [facility] [id number] Account No: [id number] Collected: 11/13/2018 Med Rec No: [id number] Received: 11/14/2018 Attend Phys: LENNY CORRAL Completed: [...] two cassettes after brief decalcification. UVALDO/NIKKY CPT: 03366 X1 59751 X1 STANLEY GRAFF M.D. 11/15/2018 Electronically signed out by Page 1 of 1 [facility] Comment on above: Performed By: #### P TT #### [facility] [address] [place] [address] Type and Screen Capture 3 sc rn cellon 11-13-2018 Type and Screen Capture 3 scrn cell PATIENT: MERCY GANDHI LOC: TATIANNA SUAREZ NON BILL# : [id number] : 1935 SEX: F ORDERED BY: GOPAL AMIN ORDERED : 11/13/2018 08:10 COLLECTED: 11/13/2018 09:24 ORDER : [id number] RECEIVED : 11/13/2018 09:24 TEST NAME RESULT UNITS RANGES ABN FL ST ABORH Capture A POS F Antibody 3 Cell Scrn Captu NEG F Normal [facility] Comment on above: Performed By: #### T S3C #### [facility] [address] [place] [address] XR SPINE ENTIRE (2-3 VIEWS)o n 11-13-2018 [...] UNDERLYING PATHOLOGY OR RECENT INJURY. [facility] [place], [place] Joseph, Chpo Incoming Radiant Results From [facility] - 11/05/2018 3:07 PM EDT EXAMINATION: MRI [...] SIGNS OF UNDERLYING PATHOLOGY OR RECENT INJURY. [place] MRI LUMBAR SPINE W WO CONTRAST [...] Normal [facility] Otheron 11-05-2018 Joseph, po Incoming Radiant Results From [facility] - 11/05/2018 1:21 PM EDT EXAMINATION: XR [...] AND POSTOPERATIVE FINDINGS, WITHOUT ACUTE SUPERIMPOSED ABNORMALITY. [place] EXAMINATION: XR LUMBAR SPINE (MIN 4 [...] AND POSTOPERATIVE FINDINGS, WITHOUT ACUTE SUPERIMPOSED ABNORMALITY. [place] XR CHEST (2 VW)on 11-05-2018 XR [...] Coag (Bld) [Time] 27.9 s [facility] [place], [place] Comment on above: Effective 09/06/2018: Please note methodology and/or reference ranges have changed. aPTT - Heparin Therapeutic Range: 74.0 - 106 seconds C-Reactive Proteinon 019 CRP [Mass/Vol] 1.3 mg/L Normal 0.0-5.0 [facility] Comment on above: Performed By: #### C RP #### [facility] [address] [place] [address] CRP [Mass/Vol] 1.3 mg/L 0 - 5 mg/L [place] CBC Auto Differentialon 10-21 Basophils (Bld) [#/Vol] 0.1 10*3/uL 0 - 0.2 K/u L [place] Basophils/100 WBC (Bld) 1.1 % [place] Eosinophils (Bld) [#/Vol] 0.2 10*3/uL 0 - 0.7 K/uL [place] Eosinophils/100 WBC (Bld) 1.3 % [place] Erythrocyte distribution width (RBC) [Ratio] 13.9 % 11.5 - 14.5 % [place] Hematocrit (Bld) [Volume fraction] 41.3 % 37 - 47 % [place] Hemoglobin (Bld) [Mass/Vol] 14.3 g/dL 12 - 16 g/dL [place] Interpretation and review of laboratory results Abnormal [place] Lymphocytes (Bld) [#/Vol] 3.5 10*3/uL 1 - 4.8 K/uL [place] Lymphocytes/100 WBC (Bld) 28.2 % [place] MCH (RBC) [Entitic mass] 30.5 pg 27 - 31.3 p g [place] MCHC (RBC) [Mass/Vol] 34.6 % 33 - 37 % [place] MCV (RBC) [Entitic vol] 88.0 fL 82 - 100 fL [place] Monocytes (Bld) [#/Vol] 0.8 10*3/uL 0.2 - 0.8 K/uL [place] Monocytes/100 WBC (Bld) 6.8 % [place] Neutrophils Absolute 7.7 K/uL High 1.4 - 6 .5 K/uL [place] Neutrophils/100 WBC (Bld) 62.6 % [place] Platelets (Bld) [#/Vol] 435 10*3/uL High 130 - 400 K/uL [place] RBC (Bld) [#/Vol] 4.69 10*6/uL [place] WBC (Bld) [#/Vol] 12.4 10*3/uL High 4.8 - 10.8 K/uL [place] CBC With Platelet and Differ entialon 11-04-2018 Basophils (Bld) [#/Vol] 0.1 10*3/uL Normal 0.0-0.2 [facility] Comment on above: Performed By: #### C BCWD #### [facility] [address] [place] [address] Basophils/100 WBC (Bld) 1.1 % Normal [facility] [place] Comment on above: Performed By: #### C BCWD #### [facility] [address] [place] [address] Eosinophils (Bld) [#/Vol] 0.2 10*3/uL Normal 0.0-0.7 [facility] Comment on above: Performed By: #### C BCWD #### [facility] [address] [place] [address] Eosinophils/100 WBC (Bld) 1.3 % Normal [facility] Comment on above: Performed By: #### C BCWD #### [facility] [address] [place] [address] Erythrocyte distribution width (RBC) [Ratio] 13.9 % Normal 11.5-14.5 [facility] Comment on above: Performed By: #### C BCWD #### [facility] [address] [place] [address] Hematocrit (Bld) [Volume fraction] 41.3 % Normal 37.0-47.0 [facility] Comment on above: Performed By: #### C BCWD #### [facility] [address] [place] [address] Hemoglobin (Bld) [Mass/Vol] 14.3 g/dL Normal 12.0-16.0 [facility] Comment on above: Performed By: #### C BCWD #### [facility] [address] [address] Lymphocytes (Bld) [#/Vol] 3.5 10*3/uL Normal 1.0-4.8 [facility] Comment on above: Performed By: #### C BCWD #### [facility] [address] [address] Lymphocytes/100 WBC (Bld) 28.2 % Normal [facility] Comment on above: Performed By: #### C BCWD #### [facility] [address] [place] [address] MCH (RBC) [Entitic mass] 30.5 pg Normal 27.0-31.3 [facility] Comment on above: Performed By: #### C BCWD #### [facility] [address] [address] MCHC (RBC) [Mass/Vol] 34.6 % Normal 33.0-37.0 [facility] Comment on above: Performed By: #### C BCWD #### [facility] [address] [place] [address] MCV (RBC) [Entitic vol] 88.0 fL Normal 82.0-100.0 [facility] [place] Comment on above: Performed By: #### C BCWD #### [facility] [address] [address] Monocytes (Bld) [#/Vol] 0.8 10*3/uL Normal 0.2-0.8 [facility] Comment on above: Performed By: #### C BCWD #### [facility] [address] [place] [address] Monocytes/100 WBC (Bld) 6.8 % Normal [facility] [place] Comment on above: Performed By: #### C BCWD #### [facility] [address] [address] Neutrophils (Bld) [#/Vol] 7.7 10*3/uL Critically high 1.4-6.5 [facility] Comment on above: Performed By: #### C BCWD #### [facility] [address] [place] [address] Neutrophils/100 WBC (Bld) 62.6 % Normal [facility] Comment on above: Performed By: #### C BCWD #### [facility] [address] [place] [address] Platelets (Bld) [#/Vol] 435 10*3/uL Critically high 130-40 0 [facility] Comment on above: Performed By: #### C BCWD #### [facility] [address] [place] [address] RBC (Bld) [#/Vol] 4.69 10*6/uL Normal 4.20-5.40 [facility] Comment on above: Performed By: #### C BCWD #### [facility] [address] [place] [address] WBC (Bld) [#/Vol] 12.4 10*3/uL Critically high 4.8-10.8 [facility] Comment on above: Performed By: #### C BCWD #### [facility] [address] [place] [address] Comprehensive Metabolic Pane carlos 11-04-2018 Anion gap [Moles/Vol] 14 mmol/L Normal 9-15 [facility] Comment on above: Order Comment: CALL [facility] tel. [phone], Potassium results called to and read back by onofre Millan RN, 11/04/2018 16:24, by [employer] Performed By: #### C MP #### [facility] [address] [place] [address] Bilirubin [Mass/Vol] 0.4 mg/dL Normal 0.2-0.7 [facility] Comment on above: Order Comment: CALL [facility] tel. [phone], Potassium results called to and read back by onofre Millan RN, 11/04/2018 16:24, by WEB[employer] Performed By: #### C MP #### [facility] [address] [place] [address] GFR/1.73 sq M predicted among blacks MDRD (S/P/Bld) [Vol rate/Area] mL/min/{1.73_m2} Normal >60 [facility] Comment on above: Order Comment: CALL [facility] tel. [phone], Potassium results called to and read back by onofre Millan RN, 11/04/2018 16:24, by WEB[employer] Result Comment: >60 mL/min/1.73m2 EGFR, calc. for ages 18 and older using the MDRD formula (not corrected for weight), is valid for stable renal function. Performed By: #### C MP #### [facility] [address] [place] [address] GFR/1.73 sq M.predicted MDRD (S/P/Bld) [Vol rate/Area] mL/min/{1.73_m2} Normal >60 [facility] Comment on above: Order Comment: CALL [facility] tel. [phone], Potassium results called to and read back by onofre Millan RN, 11/04/2018 16:24, by [employer] Result Comment: >60 mL/min/1.73m2 EGFR, calc. for ages 18 and older using the MDRD formula (not corrected for weight), is valid for stable renal function. Performed By: #### C MP #### [facility] [address] [place] [address] Albumin [Mass/Vol] 4.5 g/dL Normal 3.5-4.6 [facility], [place] Comment on above: Order Comment: CALL [facility] tel. [phone], Potassium results called to and read back by onofre Millan RN, 11/04/2018 16:24, by [employer] Performed By: #### C MP #### [facility] [address] [place] [address] ALP [Catalytic activity/Vol] 76 U/L Normal 40-130 [facility], [place] Comment on above: Order Comment: CALL [facility] tel. [phone], Potassium results called to and read back by onofre Millan RN, 11/04/2018 16:24, by WE[employer] Performed By: #### C MP #### [facility] [address] [address] ALT [Catalytic activity/Vol] 15 U/L Normal 0-33 [place] Comment on above: Order Comment: CALL [facility] tel. [phone], Potassium results called to and read back by onofre Millan RN, 11/04/2018 16:24, by [employer] Performed By: #### C MP #### [facility] [address] [place] [address] AST [Catalytic activity/Vol] 20 U/L Normal 0-35 [place] Comment on above: Order Comment: CALL [facility] tel. [phone], Potassium results called to and read back by onofre Millan RN, 11/04/2018 16:24, by WE[employer] Performed By: #### C MP #### [facility] [address] [address] Calcium [Mass/Vol] 9.9 mg/dL Normal 8.5-9.9 [place] Comment on above: Order Comment: CALL [facility] tel. [phone], Potassium results called to and read back by onofre Millan RN, 11/04/2018 16:24, by WE[employer] Performed By: #### C MP #### [facility] [address] [place] [address] Chloride [Moles/Vol] 96 mmol/L Normal 95-107 [place], [place] Comment on above: Order Comment: CALL [facility] tel. [phone], Potassium results called to and read back by onofre Millan RN, 11/04/2018 16:24, by WEBAM Performed By: #### C MP #### [facility] [address] [place] [address] CO2 [Moles/Vol] 24 mmol/L Normal 20-31 [place], [place] Comment on above: Order Comment: CALL [facility] tel. [phone], Potassium results called to and read back by onofre Millan RN, 11/04/2018 16:24, by WE[employer] Performed By: #### C MP #### [facility] [address] [place] [address] Creatinine [Mass/Vol] 0.67 mg/dL Normal 0.50-0.90 [place] Comment on above: Order Comment: CALL [facility] tel. [phone], Potassium results called to and read back by onofre Millan RN, 11/04/2018 16:24, by WE[employer] Performed By: #### C MP #### [facility] [address] [address] Globulin (S) [Mass/Vol] 2.8 g/dL Normal 2.3-3.5 [place] Comment on above: Order Comment: CALL [facility] tel. [phone], Potassium results called to and read back by onofre Millan RN, 11/04/2018 16:24, by WEBAM Performed By: #### C MP #### [facility] [address] [facility] [place] [address] Glucose [Mass/Vol] 109 mg/dL Critically high 70-99 M [place], [place] Comment on above: Order Comment: CALL [facility] tel. [phone], Potassium results called to and read back by onofre Millan RN, 11/04/2018 16:24, by WEBAM Performed By: #### C MP #### [facility] [address] [facility] [place] [address] Potassium [Moles/Vol] 3.0 mmol/L Critically low 3.4-4.9 [place] Comment on above: Order Comment: CALL [facility] tel. [phone], Potassium results called to and read back by onofre Millan RN, 11/04/2018 16:24, by WE[employer] Performed By: #### C MP #### [facility] [address] [place] [address] Protein [Mass/Vol] 7.3 g/dL Normal 6.3-8.0 [place] Comment on above: Order Comment: CALL [facility] tel. [phone], Potassium results called to and read back by onofre Millan RN, 11/04/2018 16:24, by WEBAM Performed By: #### C MP #### [facility] [address] [facility] [address] Sodium [Moles/Vol] 134 mmol/L Low 135-144 [place] Comment on above: Order Comment: CALL [facility] tel. [phone], Potassium results called to and read back by onofre Millan RN, 11/04/2018 16:24, by WEBAM Performed By: #### C MP #### [facility] [address] [facility] [address] Urea nitrogen [Mass/Vol] 8 mg/dL Normal 8-23 [place] Comment on above: Order Comment: CALL [facility] tel. [phone], Potassium results called to and read back by onofre Millan RN, 11/04/2018 16:24, by WEBAM Performed By: #### C MP #### [facility] [address] [facility] [address] Anion gap [Moles/Vol] 14 mmol/L [place] Bilirubin Ql (U) 0.4 mg/dL 0.2 - 0.7 mg/dL [place] GFR >60.0 >60 [place] Comment on above: >60 mL/min/1.73m2 EG FR, calc. for ages 18 and older using the MDRD formula (not corrected for weight), is valid for stable renal function. GFR Non- >60.0 >60 [place] Comment on above: >60 mL/min/1.73m2 EG FR, calc. for ages 18 and older using the MDRD formula (not corrected for weight), is valid for stable renal function. Interpretation and review of laboratory results Abnormal [place] Potassium [Moles/Vol] CALL [facility] tel . [phone], Potassium results called to and read back by onofre Millan RN, 11/04/2018 16:24, by TAMMY [place] Partial Thromboplastin Timeo n 11-04-2018 aPTT Coag (Bld) [Time] 27.9 s Normal 24.4-36.8 [facility] Comment on above: Result Comment: Effe ctive 09/06/2018: Please note methodology and/or reference ranges have changed. aPTT - Heparin Therapeutic Range: 74.0 - 106 seconds Performed By: #### P TT #### [facility] [address] [facility] [address] Prothrombin Timeon 9 INR Coag (PPP) [Relative [...] #### [facility] [address] [facility] [address] PT Coag (PPP) [Time] 12.1 s Low 12.3-14.9 [facility] Comment on above: Result Comment: Effe ctive 08/30/18 Please note methodology and/or reference ranges have changed. Performed By: #### P T #### [facility] [address] [facility] [address] Protime-INRon 11-04-2018 INR Coag (PPP) [Relative time] 0.9 {INR} [place] Comment on above: Warfarin Therapy INR Therapeutic: 2.0-3.0 With Mechanical Valve: >2.5 Low-intensity Therapeutic Range: 1.5-2.0 Mod-intensity Therapeutic Range: 2.0-3.0 High-intensity Therapeutic Range: 2.5-3.5 HIgh-intensity Therapeutic Range: 3.0-4.0 Common Critical/Alarm Value: 5.0 Common Upper Limit Reported: 10.0 Effective 08/30/2018: Please note methodology and/or reference ranges have changed. Interpretation and review of laboratory results Abnormal [place] PT Coag (PPP) [Time] 12.1 s Low [place] Comment on above: Effective 08/30/18 Please note methodology and/or reference ranges have changed. Sedimentation Rateon 019 Sedimentation Rate 12 mm Normal 0-30 [facility] Comment on above: Performed By: #### E SR #### [facility] [address] [place] [id number] Sed Rate 12 mm 0 - 30 mm [place] Vital Signs Date Time Vital Sign Value Performing Clinician Ivonne ledesma 05-03-2023 14:21-0400 Blood Pressure Location Turner DOSS [facility] [place] 05-03-2023 14:21-0400 Diastolic blood pressure 82 mm[Hg] Turner DOSS [facility] 05-03-2023 14:21-0400 Heart rate 76 /min Turner DOSS [facility] [place] 05-03-2023 14:21-0400 Respiratory rate 16 /min Turner DOSS [facility] [place] 05-03-2023 14:21-0400 Systolic blood pressure 156 mm[Hg] Turner DOSS [facility] [place] 04-15-2023 13:38-0500 Diastolic blood pressure 70 mm[Hg] MD Addy Daniels Work Phone: [facility] 04-15-2023 13:38-0500 Heart rate 76 /min MD Addy Daniels Work Phone: [facility] 04-15-2023 13:38-0500 Respiratory rate 18 /min MD Addy Daniels Work Phone: [facility] 04-15-2023 13:38-0500 SaO2% (BldA) [Mass fraction] 97 % MD Addy Daniels Work Phone: [facility] 04-15-2023 13:38-0500 Systolic blood pressure 160 mm[Hg] MD Addy Daniels Work Phone: [facility] 04-15-2023 12:07-0500 Body height 154.94 cm MD Addy Daniels Work Phone: [facility] 04-15-2023 12:07-0500 Body temperature 97.8 [degF] MD Addy Daniels Work Phone: [facility] 04-15-2023 12:07-0500 Body weight 60.5 kg MD Addy Daniels Work Phone: [facility] 04-06-2023 11:51-0500 Body temperature 97.9 [degF] MD Addy Daniels Work Phone: [facility] 04-06-2023 11:51-0500 Diastolic blood pressure 76 mm[Hg] MD Addy Daniels Work Phone: [facility] 04-06-2023 11:51-0500 Heart rate 84 /min MD Addy Daniels Work Phone: [facility] 04-06-2023 11:51-0500 Respiratory rate 18 /min MD Addy Daniels Work Phone: [facility] 04-06-2023 11:51-0500 SaO2% (BldA) [Mass fraction] 97 % MD Addy Daniels Work Phone: [facility] 04-06-2023 11:51-0500 Systolic blood pressure 146 mm[Hg] MD Addy Daniels Work Phone: [facility] 04-06-2023 06:00-0500 Body weight 58.6 kg MD Addy Daniels Work Phone: [facility] 04-04-2023 13:15-0500 Body height 154.94 cm MD Addy Daniels Work Phone: [facility] 12-22-2022 11:40-0400 Blood Pressure Location MIKAYLA WEISS [facility] 12-22-2022 11:40-0400 Diastolic blood pressure 84 mm[Hg] MIKAYLA WEISS [facility] 12-22-2022 11:40-0400 Systolic blood pressure 124 mm[Hg] MIKAYLAJAQUELINE WEISS [facility] 08-06-2022 00:10-0400 Body temperature 97.3 [degF] MD Addy Daniels Work Phone: [facility] 08-06-2022 00:10-0400 Diastolic blood pressure 74 mm[Hg] MD Addy Daniels Work Phone: [facility] 08-06-2022 00:10-0400 Heart rate 80 /min MD Addy Daniels Work Phone: [facility] 08-06-2022 00:10-0400 Respiratory rate 18 /min MD Addy Daniels Work Phone: [facility] 08-06-2022 00:10-0400 SaO2% (BldA) [Mass fraction] 96 % MD Addy Daniels Work Phone: [facility] 08-06-2022 00:10-0400 Systolic blood pressure 177 mm[Hg] MD Addy Daniels Work Phone: [facility] 08-05-2022 19:51-0400 Body height 154.94 cm MD Addy Daniels Work Phone: [facility] 08-05-2022 19:51-0400 Body weight 67.6 kg MD Addy Daniels Work Phone: [facility] 11-20-2018 07:02-0400 Body Temperature 97 [degF] Mary Vega [facility] [place] 11-20-2018 07:02-0400 BP Diastolic 61 mm[Hg] Mary Vega [facility] 11-20-2018 07:02-0400 BP Systolic 153 mm[Hg] Mary Vega [facility] 11-20-2018 07:02-0400 Pulse (Heart Rate) 75 /min Mary Vega [facility] 11-20-2018 07:02-0400 Pulse Oximetry 97 % Mary Vega [facility] 11-20-2018 07:02-0400 Respiratory Rate 17 /min Mary Vega [facility] 11-17-2018 05:54-0400 BMI (Body Mass Index) 27.62 kg/m2 Mary Vega [facility] 11-17-2018 05:54-0400 Body weight 66.3 kg [facility] [place] 11-15-2018 15:58-0400 Height 154.9 cm Mary Vega [facility], [place] 11-05-2018 07:30-0400 BP Diastolic 57 mm[Hg] [facility] [place] 11-05-2018 07:30-0400 BP Systolic 135 mm[Hg] [facility] [place] 11-05-2018 07:30-0400 Pulse (Heart Rate) 70 /min [facility] [place] 11-05-2018 07:30-0400 Pulse Oximetry 97 % [facility] [place] 11-04-2018 20:06-0400 Body Temperature 98.4 [degF] Lenny [facility] [place] 11-04-2018 20:06-0400 Respiratory Rate 16 /min Lenny [facility] [place] 11-04-2018 14:56-0400 BMI (Body Mass Index) 27.4 kg/m2 Lenny [facility] [employer] [facility], [place] 11-04-2018 14:56-0400 Body weight 65.77 kg [place], [place] 11-04-2018 14:56-0400 Height 154.9 cm [facility] , [place] Encounters Encounter Date Encounter Type Care Provider Facility Start: 06-29-2023 ambulatory MIKAYLAABRAHAN WEISS Morgan ty:[facility] Walker Start: 06-28-2023 End: 06-28-2023 ambulatory Turner R DINESHL Facility: [facility] Start: 06-28-2023 End: 06-28-2023 [facility] [place] Start: 06-21-2023 End: 06-21-2023 ambulatory MD Addy Daniels Work Phone: [facility] Work Phone: Start: 06-21-2023 End: 06-21-2023 Departed Referred MD Addy Daniels Work Phone: [facility] [place] [facility] Start: 06-21-2023 End: 06-21-2023 ambulatory Turenr R NILL Facility:[id number] Start: 05-03-2023 End: 05-03-2023 ambulatory Addy Daniels Facility:[facility] Start: 05-03-2023 End: 05-03-2023 Patient encounter procedure Turner R NILL General Surgery Nill/[facility] Start: 04-15-2023 End: 04-15-2023 Emergency department patient visit MD Addy Daniels Work Phone: [facility]-Emergency Room Work Phone: Start: 04-13-2023 ambulatory Turner NILL Facility:[facility] Start: 04-12-2023 Non-patient / Non-visit MD Aime Daniels [facility] Work Phone: Start: 04-03-2023 Non-patient / Non-visit MD Aime Daniels Work Phone: [facility] Work Phone: Start: 04-02-2023 Non-patient / Non-visit MD Aime Daniels Work Phone: [facility] Work Phone: Start: 04-02-2023 End: 04-06-2023 Evaluation and management of inpatient MD Addy Daniels Work Phone: [facility] [place] Work Phone: Start: 01-11-2023 End: 01-11-2023 ambulatory [facility] Start: 12-22-2022 End: 12-22-2022 ambulatory MIKAYLA WEISS Facility:[facility] Start: 12-22-2022 End: 12-22-2022 Patient encounter procedure MIKAYLA WEISS [facility] Start: 10-14-2022 End: 10-14-2022 ambulatory [facility] Start: 08-05-2022 End: 08-06-2022 Emergency department patient visit MD Addy Daniels Work Phone: [facility]gency Room Work Phone: Start: 06-13-2022 End: 06-14-[address] ADDY DANIELS . Facility:[facility]1 Start: 05-19-[address] ADDY DANIELS . Facili ty:H1 Start: 04-18-2022 End: 04-19-[address] VALERIE DARDEN Facility:[facility]1 Start: 04-04-2022 End: 04-04-2022 ambulatory [facility] Start: 01-30-[address] ADDY DANIELS . Facili ty:H1 Start: 01-04-2022 End: 01-05-[address] ADDY DANIELS . Facility:[facility]1 Start: 12-26-2021 End: 12-29-2021 Evaluation and management of inpatient DR ADDY DANIELS . Facility:[facility]1 Start: 12-02-2021 End: 01-04-2022 Pre-admission assessment Alie Santos [facility] Start: 11-30-2021 End: 12-01-[address] JESUS BRUNO Facility:[facility]1 Start: 11-09-2021 End: 11-10-[address] CALISTA ACEVES Facility:[facility]1 Start: 08-06-2021 End: 08-07-[address] VALERIE DARDEN Facility:[facility]1 Start: 07-28-2021 End: 07-29-[address] CALISTA ACEVES Facility:[facility]1 Start: 06-22-2021 End: 06-22-2021 Patient encounter procedure VALERIE DARDEN [facility] Start: 11-15-2018 End: 11-20-2018 Evaluation and [...] End: 04-20-2018 Patient encounter procedure DEFAULT PHYSICIAN Facility:[facility] Procedures Date Procedure Procedure Detail [...] INCENTIVE SPIROMETRY RT ACLISTA ACEVES Start: 11-17-2018 INCENTIVE SPIROMETRY RT CALISTA [...] r-t 2d w/ wom-mode compl spec&colr d [facility] Work Phone: Start: 11-16-2018 INCENTIVE SPIROMETRY RT CALISTA ACEVES Start: 11-16-2018 INCENTIVE SPIROMETRY RT CALISTA KETAN Start: 11-16-2018 NURSING COMMUNICATION M DORA ACEVES Start: 11-16-2018 INCENTIVE SPIROMETRY RT CALISTA KETAN Start: 11-16-2018 INITIATE OXYGEN THER APY PROTOCOL CALISTA KETAN Start: 11-16-2018 INCENTIVE SPIROMETRY RT CALISTA KETAN Start: 11-16-2018 Blood count complete auto&auto difrntl wbc CALISTA ACEVES Start: 11-16-2018 IP CONSULT TO CARDIOLOGY CALISTA ACEVES Start: 11-16-2018 Blood count complete auto&auto difrntl wbc Mary HubbardSantana Work Phone: Start: 11-16-2018 DAILY WEIGHTS CALISTA [...] ICAL VTE PROPHYLAXIS CALISTA ACEVES Start: 11-15-2018 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 CHRIS ACEVES Start: 11-15-2018 TOBACCO CESSATION EDUCATION CALISTA ACEVES Start: 11-15-2018 VITAL SIGNS CALISTA RIVERA UN Start: 11-15-2018 Radiologic exam ches t single view CALISTA ACEVES Start: 11-15-2018 INCENTIVE SPIROMETRY RT CALISTA ACEVES Start: 11-15-2018 Radiologic exam ches t single view Mary ShahThalia Work Phone: Start: 11-15-2018 Duplex scan extracra [...] Culture bacterial quanttative colony count urine Mary CokerYuko Work Phone: Start: 11-15-2018 Urinalysis microscopic only Mary Vega Work Phone: Start: 11-15-2018 Blood count complete auto&auto difrntl wbc CALISTA ACEVES Start: 11-15-2018 Culture bacterial bl ood aerobic w/id isolates CALISTA ACEVES Start: 11-15-2018 Microscopic examinat ion of blood, culture CALISTA ACEVES Comment on above: Performed By: #### P TT #### [facility] [address] [place] [address] Start: 11-15-2018 Urnls dip stick/tabl et [...] CALISTA ACEVES Start: 11-14-2018 INCENTIVE SPIROMETRY RT CALISTAPRESLEY ACEVES Start: 11-14-2018 INCENTIVE SPIROMETRY RT CALISTA [...] CALISTA KETAN Start: 11-14-2018 DAILY WEIGHTS CALISTA LAMBERT CAREY [...] MARQUEZ ACEVES Start: 11-13-2018 NEURO/VASCULAR CHECKS M DORAPRESLEY [...] Date Care Activity Detail Author Start: 04-06-2023 [facility] Start: 04-04-2023 Administration of prophylactic treatment [facility] Start: 04-02-2023 Referral to director of workforce development [facility] Start: 04-02-2023 Hospital admission [facility] Start: 08-05-2022 CT Abdomen and Pelvi s WO contrast [facility] Start: 08-05-2022 CT of abdomen and pe lvis without contrast CT abdomen pelvis wo con [facility] Start: 11-19-2019 Creatinine monitoring Creatinine mon [place], [place] Start: 11-19-2019 Potassium monitoring Potassium monit [place], [place] Start: 11-05-2019 Creatinine monitoring Creatinine mon [place], [place] Start: 11-05-2019 Potassium monitoring Potassium monit [place] Start: 12-04-2018 End: 12-04-2018 Office Visit 12/04/2018 Office Visit Neurosurgery Lenny Corral MD [address], [address] [place] [id number] [employer] Start: 11-30-2018 End: 11-30-2018 Office Visit 11/30/2018 Office Visit Neurosurgery Lenny Corral MD [address] [facility], [address] [address] [phone] [employer] Start: 11-23-2018 End: 11-23-2018 Office Visit 11/23/2018 Office Visit Neurosurgery Lenny Corral MD [address] [facility], [address] [id number] [employer] Start: 11-13-2018 Annual Wellness Visi t (AWV) Annual Wellness Visit (AWV) [place], [place] Start: 10-21-2018 Influenza vaccination Flu vaccine (# 1) [place], [place] Start: 2001 DEXA (modify frequen cy per FRAX score) DEXA (modify frequency per FRAX score) [place] Start: 2001 Pneumococcal 65+ yea rs Vaccine (1 of 2 - PCV13) Pneumococcal 65+ years Vaccine (1 of 2 - PCV13) [place] Start: 1986 Shingles Vaccine (1 of 2) Steward gles Vaccine (1 of 2) [place] Start: 11-13-1955 DTaP/Tdap/Td vaccine (1 - Tdap) DTaP/Tdap/Td vaccine (1 - Tdap) [place] Start: 1946 Lipid screen Lipid screen [place], [place] Culture Blood #1 Culture Blood # 1 Microbiology STAT 11/15/2018 4:37 PM EDT [place] Culture Blood #2 Culture Blood # 2 Microbiology STAT 11/15/2018 4:37 PM EDT [place] End: 11-05-2018 EKG 12 Lead EKG 12 Lead ECG Routine One Time for 1 Occurrences starting 11/05/2018 until 11/05/2018 [place] Comment on above: One Time for 1 Occur rences starting 11/05/2018 until 11/05/2018 Incentive spirometry Incentive s pirometry Respiratory Care Routine Every 2hr while awake until discontinued starting 11/15/2018 [facility] [place] Comment on above: Every 2hr while awak e until discontinued starting 11/15/2018 Initiate Oxygen Ther apy Protocol Initiate Oxygen Therapy Protocol Respiratory Care Routine Daily until discontinued starting 11/15/2018 [facility] [place] Comment on above: Daily until disconti nued starting 11/15/2018 Nonrebreather mask oxygen Nonreb reather mask oxygen Respiratory Care Routine As directed - RT (PRN) until discontinued starting 11/05/2018 [facility] [place] Comment on above: As directed - RT (OH N) until discontinued starting 11/05/2018 Patient Education [facility] Work Phone: Patient referral [facility] Work Phone: End: 11-15-2018 Speech and language therapy regime Speech language pathology evaluation 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 Routine One Time for 1 Occurrences starting 11/15/2018 until 11/15/2018 [facility] [place] Comment on above: One Time for 1 Occur rences starting 11/15/2018 until 11/15/2018 End: 11-04-2018 Urine Reflex to Culture Urine Reflex to Culture Lab STAT One Time for 1 Occurrences starting 11/04/2018 until 11/04/2018 [facility] [place] Comment on above: One Time for 1 Occur rences starting 11/04/2018 until 11/04/2018 Immunizations Immunization Date Immunization Notes Care Provider Laxmi romero 12-20-2021 influenza virus vaccine, unspecified formulation MIKAYLA WEISS [facility] 11-30-2021 influenza virus vaccine, unspecified formulation MD Addy Daniels Work Phone: [facility] 12-21-2020 influenza virus vaccine, unspecified formulation MIKAYLA WEISS [facility] 01-09-2019 influenza virus vaccine, unspecified formulation MIKAYLA WEISS [facility] 11-29-2017 influenza virus vaccine, unspecified formulation MIKAYLA WEISS [facility] 01-02-2017 influenza virus vaccine, unspecified formulation MIKAYLA WEISS [facility] 12-06-2016 influenza virus vaccine, unspecified formulation MIKAYLA WEISS [facility] 12-11-2014 influenza virus vaccine, unspecified formulation MIKAYLA WEISS [facility] NEGATED: Highlighted row has not occurred!05-03-2023 influenza virus vaccine, unspecified formulation Turner DOSS [facility] [place] Payers Date Payer Category Payer Self-pay [id number] 2021 Unknown [id number] 2018 Medicare MEDICARE MEDICAR E PART A AND B xxxxxxxxxxx 2018-Present [phone] [place] [address] xxxxxxxxxxx [id number] 2014 Medicare [id number] 2014 Medicare MEDICARE MEDICAR E PART A AND B xxxxxxxxxx 2014-Present [phone] [address] [address] [place] [address] xxxxxxxxxx [id number] 2014 Unknown [id number] 2014 Unknown 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 [address] xxxxxxxxxxxx 2014-Present [phone] [address] [place] [address] xxxxxxxxxxxx [id number] [id number] 1959 Medicare [id number] 1959 Self-pay [id number] 1959 Unknown [id number] 1936 Unknown [id number] 2.16.840.1.976623.3.579.2.647 1936 Unknown [id number] 2.16.840.1.948828.3.579.2.182 1936 Unknown [id number] 2.16.840.1.251712.3.579.2.182 1936 Unknown [id number] 2.16.840.1.308674.3.579.2.182 1936 Unknown [id number] 2.16.840.1.363638.3.579.2.182 1936 Unknown [id number] 2.16.840.1.717814.3.579.2.593 1936 Unknown [id number] 2.16.840.1.186229.3.579.2.593 1936 Unknown [id number] 2.16.840.1.645189.3.579.2.593 1936 Unknown [id number] 2.16.840.1.267111.3.579.2.593 1936 Unknown [id number] 2.16.840.1.215817.3.579.2.593 1936 Unknown [id number] 2.16.840.1.292699.3.579.2.593 1936 Unknown [id number] 2.16.840.1.802077.3.579.2.593 1936 Unknown [id number] 2.16.840.1.747909.3.579.2.593 1936 Unknown [id number] 2.16.840.1.968733.3.579.2.593 1936 Unknown [id number] 2.16.840.1.284701.3.579.2.593 1936 Unknown [id number] 2.16.840.1.271510.3.579.2.727 1936 Unknown [id number] 2.16.840.1.408992.3.579.2.727 1936 Unknown [id number] 2.16.840.1.268369.3.579.2.727 1936 Unknown [id number] 2.16.840.1.718126.3.579.2.727 1936 Unknown [id number] 2.16.840.1.498875.3.579.2.727 Unknown Unknown [id number] 2.16.840.1.787377.3.579.2.531 Unknown [id number] 2.16.840.1.165627.3.579.2.531 Unknown [id number] 2.16.840.1.723285.3.579.2.531 Social History Date Type Detail Facility Start: 11-04-2018 End: 04-15-2023 Tobacco smoking status NHIS Never smoker [facility] Start: 11-04-2018 End: 11-19-2018 Alcohol intake Not Currently [place] Sex Assigned At Not on file [place] Tobacco smoking status No Smokin g Status Entered [facility] Start: 1935 Sex Assigned At Female F [facility] Tobacco smoking status Never [facility] Medical Equipment Procedure Code Equipment Code Equipment Origin al Text Equipment Identifier Dates Graft Canc Chip 30cc [id number] - [id number] Start: 11-13-2018 Graft Canc Chip [id number] 15cc - [id number] Start: 11-13-2018 Sys Fix Reline 0 x Conn 40 50mm 5.5lp Adj [id number] Start: 11-13-2018 Jose Armando-Graft Infuse Kt Med [id number] Start: 11-13-2018 Impl Spine Cage Kamila Crv [id number] 8deg [id number] Start: 11-13-2018 Impl Spine Cage Kamila Crv [id number] 8deg [id number] Start: 11-13-2018 Screw Polyaxial Reline [...] Fatmata 04-06-2023 Functional status Patient at Baseline [facility] Work Phone: 12-22-2022 Functional Status N/A [facility] Mental Status Date Assessment Result Facility 04-06-2023 Cognitive function Cognitive Sta tus Patient at Baseline [facility] Work Phone: Clinical Notes [...] plan excisional biopsy under local anesthesia at [facility], for definitive diagnosis and treatment, informed [...] mg= 1 tab(s), Oral, Daily Potassium Chloride (Mwa-Zppa-Ujd 10), 20 mEq, Oral, TID pravastatin 80 [...] Recorded influenza virus vaccine, inactivated 12/11/2014 Recorded [facility] Comment on above: Result Comment: Elec tronically Signed By: ROMARIO DUMONT, Turner Mckeon\.real\Date and Time Signed: 05/03/23 20:14 EDT 04-06-2023 Discharge summary Note Date/Time April 06, 2023 12:22pm [facility] [address] [place] [address] Discharge Summary Signed Patient: Hiram Madrid MR#: [id number] : 1935 Acct:[id number] Age/Sex: 87 / F Adm Date: 4 Loc: Room: 0A5919-[address]: Turner Frank DO Copies to: [...] is a 89-year-old who [facility] on [facility]23. She had [...] amlodipine daily. Her home med list reports [id number] mg but currently shows me a 5 [...] Plan Discharge Plan Patient Disposition: Home Health [facility] Activity: Ambulate as Tolerated Diet: Low-Sodium Additional [...] <Electronically signed by Turner Frank DO> 04/06/[address] [place] [address] Work Phone: 1(819) 438-982902-14-2024 Progress note Author Turner Frank [facility] April 05, 2023 8:14pm Note Date/Time April 05, 2023 8:14pm [facility] [address] [place] [address] Hospitalist Progress Note Signed Patient: Hiram Madrid MR#: [id number] : 1935 Acct:[id number] Age/Sex: 87 / F Adm Date: 4 Loc: Room: [address] [place] [address] Type: ADM IN Attending Dr: Turner Frank [...] Meq Kcl IV 04/01/24 20:29 0 mls/hr .[id number] [place] Infusion Levothyroxine Sodium 88 mcg 04/03/23 [...] <Electronically signed by Turner Frank DO> 04/05/232013 [facility] Work Phone: 1(287) 236-946802-14-2024 Progress note Author Gaudencio [facility] April 05, 2023 11:16am Note Date/Time April 05, 2023 11:16am [facility] [address] [place] [address] Nephrology Progress Note Signed Patient: Hiram Madrid MR#: [id number] : 1935 Acct:[id number] Age/Sex: 87 / F Adm Date: 4 Loc: 4 Room: [id number] Type: ADM IN Attending Dr: Turner Frank DO Copies to: ~ Date of Service: 04/05/2023 Subjective Subjective Narrative: Ms. Madrid is an 87-year-old white female was transferred from [facility] on 04/02/23 for hyponatremia. Patient did complain for nausea with no vomiting or diarrhea. She had back pain and other vague symptoms that prompted her to go [facility]. ER lab showed sodium 116, potassium 2.3 and magnesium 1.6. Otherlabs unremarkable including creatinine 0.7 mg/dL. EKG showed normal sinus rhythm at 86/min with right bundle branch block. Patient was given 2 g magnesium in the emergency room and subsequently was transferred to [facility] for further management. On arrival, patient was placed on gentle hydration with normal saline with 20 mEq potassium chloride at rate of75 cc/h. Review of his records showed that the patient has a chronic hyponatremia for almost a year however she never seen director of workforce development. Sodium has been running in the 120s. [...] [facility] [...] / 120 Output Total 250 / 250 / Balance 100 / 100 2024 / 2024 1124 / 1124 120 / 120 Weight 63 kg 61.3 kg 62.5 kg 58.2 kg Meds and Allergies Meds: Active Medications Acetaminophen (Acetaminophen 325 Mg Tablet) 650 mg PO Q4H PRN PRN Reason: Pain Scale 1 - 5 Stop: 04/01/24 19:57 Amlodipine Besylate (Amlodipine 10 Mg Tablet) 10 mg PO DAILY [facility] Stop: 04/02/24 08:59 Last Admin: 04/05/23 08:25 Dose: 10 mg Docusate Sodium (Docusate 100 Mg Capsule) 200 mg PO BID PRN PRN Reason: Constipation Stop: 04/01/24 19:57 Docusate Sodium (Docusate 100 Mg Capsule) 200 mg PO BID [facility] Stop: 04/02/24 08:59 Last Admin: 04/05/23 08:25 Dose: 200 mg Hydralazine HCl (Hydralazine 20 Mg/Ml Vial) 10 mg IV-PUSH Q4H PRN PRN Reason: if SBP > 185 Stop: 04/01/24 19:57 Potassium Chloride/Sodium Chloride (0.9 % Nacl-20 Meq Kcl) 1,000 mls @ 75 mls/hr IV .[id number] [place] Stop: 04/01/24 20:29 Last Infusion: 04/04/23 [...] signed by MD Gaudencio Romero> 04/05/23 1116 [facility] Work Phone: 1(258) 729-312302-13-2024 Progress note Author Gaudencio Romero [facility] April 04, 2023 2:06pm Note Date/Time April 04, 2023 2:00pm [facility] [address] [place] [address] Nephrology Progress Note Signed Patient: Hiram Madrid MR#: [id number] : 1935 Acct:[id number] Age/Sex: 87 / F Adm Date: 4 Loc: Room: [address] [place] [address] Type: ADM IN Attending Dr: Turner Frank DO Copies to: ~ Date of Service: 04/04/2023 Subjective Subjective Narrative: Ms. Madrid is an 87-year-old white female was transferred from [facility] on 04/02/23 for hyponatremia. Patient did complain for nausea with no vomiting or diarrhea. She had back pain and other vague symptoms that prompted her to go [facility]. ER lab showed sodium 116, potassium 2.3 and magnesium 1.6. Otherlabs unremarkable including creatinine 0.7 mg/dL. EKG showed normal sinus rhythm at 86/min with right bundle branch block. Patient was given 2 g magnesium in the emergency room and subsequently was transferred [facility] for further management. On arrival, patient was placed on gentle hydration with normal saline with 20 mEq potassium chloride at rate of75 cc/h. Review of his records showed that the patient has a chronic hyponatremia for almost a year however she never seen director of workforce development. Sodium has been running in the 120s. [...] Mg Tablet) 10 mg PO DAILY [facility] Stop: 04/02/24 08:59 Last Admin: 04/04/23 10:06 Dose: 10 mg Docusate Sodium (Docusate 100 Mg Capsule) 200 mg PO BID PRN PRN Reason: Constipation Stop: 04/01/24 19:57 Docusate Sodium (Docusate 100 Mg Capsule) 200 mg PO BID [facility] Stop: 04/02/24 08:59 Last Admin: 04/04/23 10:06 Dose: Not Given Hydralazine HCl (Hydralazine 20 Mg/Ml Vial) 10 mg IV-PUSH Q4H PRN PRN Reason: if SBP > 185 Stop: 04/01/24 19:57 Potassium Chloride/Sodium Chloride (0.9 % Nacl-20 Meq Kcl) 1,000 mls @ 75 mls/hr IV .[id number] [place] Stop: 04/01/24 20:29 Last Infusion: 04/04/23 08:45 Dose: 0 mls/hr Levothyroxine Sodium (Levothyroxine 88 Mcg Tablet) 88 mcg PO DAILY@0630 [facility] Stop: 04/02/24 06:29 Last Admin: 04/04/23 06:26 Dose: 88 mcg Lorazepam (Lorazepam 2 Mg/Ml Vial) 0.25 mg IV-PUSH Q4H PRN PRN Reason: Anxiety Stop: 10/01/23 11:38 Losartan Potassium (Losartan 50 Mg Tablet) 100 mg PO DAILY [facility] Stop: 04/02/24 08:59 Last Admin: 04/04/23 10:06 Dose: 100 mg Pantoprazole Sodium (Pantoprazole 40 Mg Tablet.Dr) 40 mg PO DAILY.0630 [facility] Stop: 04/04/24 08:59 Pravastatin Sodium (Pravastatin 40 Mg Tablet) 80 mg PO DAILY [facility] Stop: 04/02/24 08:59 Last Admin: 04/04/23 [...] outpatient Documented By: Gaudencio Romero MD 04/04/23 1621 Signed By: <Electronically signed by MD Gaudencio Romero> 04/04/23 0741 [facility] Work Phone: 1(310) 479-193702-13-2024 Progress note Author Turner Frank [facility] April 04, 2023 1:09pm Note Date/Time April 04, 2023 1:09pm [facility] [address] [place] [address] Hospitalist Progress Note Signed Patient: Hiram Madrid MR#: [id number] : 1935 Acct:[id number] Age/Sex: 87 / F Adm Date: 4 Loc: 4 Room: [address] [place] [address] Type: ADM IN Attending Dr: Turner Frank [...] Reason Stop Dose Admin Acetaminophen 650 mg 02/11/24 19:58 Acetaminophen 325 Mg Tablet PO 04/01/24 [...] Meq Kcl IV 04/01/24 20:29 0 mls/hr .[id number] [place] Infusion Levothyroxine Sodium 88 mcg 04/03/23 [...] <Electronically signed by Turner Frank DO> 04/04/23 7940 [facility] Work Phone: 1(615) 442-742202-12-2024 Progress note Author Turner Frank [facility] April 03, 2023 7:29pm Note Date/Time April 03, 2023 7:29pm [facility] [address] [place] [address] Hospitalist Progress Note Signed Patient: Hiram Madrid MR#: [id number] : 1935 Acct:[id number] Age/Sex: 87 / F Adm Date: 4 Loc: Room: [address] [place] [address] Type: ADM IN Attending Dr: Turner Frank [...] Meq Kcl IV 04/01/24 20:29 75 mls/hr .[id number] [place] Administration Levothyroxine Sodium 88 mcg 04/03/23 [...] signed by Turner Frank DO> 04/03/231928 [facility] Work Phone: 1(172) 442-585202-12-2024 Consult note Author Gaudencio Romero [facility] April 03, 2023 2:07pm Note Date/Time April 03, 2023 2:07pm [facility] [address] [place] [address] Nephrology Consult Note Signed Patient: Hiram Madrid MR#: [id number] : 1935 Acct:[id number] Age/Sex: 87 / F Adm Date: 4 Loc: Room: [address] [place] [address] Type: ADM IN Attending Dr: Turner Frank DO Copies to: MD Gaudencio Pickering MD Michael R. Frings, DO~ Providers Consult Date: 04/03/23 Requesting Provider: Turner Frank DO Primary Care Provider: Addy Daniels MD [facility] Reason for Consult: Hyponatremia, sodium 117 on admission History of Present Illness: Ms. Madrid is an 87-year-old white female was transferred from [facility] on 04/02/23 for hyponatremia. Patient did complain for nausea with no vomiting or diarrhea. She had back pain and other vague symptoms that prompted her to go [facility]. ER lab showed sodium 116, potassium 2.3 and magnesium 1.6. Otherlabs unremarkable including creatinine 0.7 mg/dL. EKG showed normal sinus rhythm at 86/min with right bundle branch block. Patient was given 2 g magnesium in the emergency room and subsequently was [facility] management. On arrival, patient was placed on gentle hydration with normal saline with 20 mEq potassium chloride at rate of75 cc/h. Review of his records showed that the patient has a chronic hyponatremia for almost a year however she never seen director of workforce development. Sodium has been running in the 120s. [...] negative unless noted below or in HPI [facility] Medical History (Updated 04/03/23 @ 14:00 by [...] Surgical History (Updated 02/01/23 @ 14:30 by [employer]) History of tonsillectomy Problem List clean-up per [...] Mg Tablet) 10 mg PO DAILY [facility] Stop: 04/02/24 08:59 Last Admin: 04/03/23 08:58 Dose: 10 mg Docusate Sodium (Docusate 100 Mg Capsule) 200 mg PO BID PRN PRN Reason: Constipation Stop: 04/01/24 19:57 Docusate Sodium (Docusate 100 Mg Capsule) 200 mg PO BID [facility] Stop: 04/02/24 08:59 Last Admin: 04/03/23 08:58 Dose: Not Given Hydralazine HCl (Hydralazine 20 Mg/Ml Vial) 10 mg IV-PUSH Q4H PRN PRN Reason: if SBP > 185 Stop: 04/01/24 19:57 Potassium Chloride/Sodium Chloride (0.9 % Nacl-20 Meq Kcl) 1,000 mls @ 75 mls/hr IV .[id number] [facility] Stop: 04/01/24 20:29 Last Admin: 04/02/23 21:56 Dose: 75 mls/hr Levothyroxine Sodium (Levothyroxine 88 Mcg Tablet) 88 mcg PO DAILY@0630 [place] Stop: 04/02/24 06:29 Last Admin: 04/03/23 05:54 Dose: 88 mcg Losartan Potassium (Losartan 50 Mg Tablet) 100 mg PO DAILY [facility] Stop: 04/02/24 08:59 Last Admin: 04/03/23 08:58 Dose: 100 mg Pravastatin Sodium (Pravastatin 40 Mg Tablet) 80 mg PO DAILY [facility] Stop: 04/02/24 08:59 Last Admin: 04/03/23 [...] 01:50 04:48 MCHC 35.8 H (32.0-35.0) g/dL Coffee # (Auto) 1.1 H (0.0-0.8) x10E3/uL Sodium [...] 04/03/23 Range/Units 08:00 10:38 MCHC (32.0-35.0) g/dL Coffee # (Auto) (0.0-0.8) x10E3/uL Sodium 118 L* [...] stay Documented By: Gaudencio Romero MD 04/03/23 7388 Signed By: <Electronically signed by MD Gaudencio Romero> 04/03/23 5010 [facility] Work Phone: 1(954) 532-980902-11-2024 History and physical note Author Natividad [facility] April 02, 2023 8:22pm Note Date/Time April 02, 2023 8:06pm [facility] [address] [place] [address] Hospitalist H&P Signed Patient: Hiram Madrid MR#: [id number] : 1935 Acct:[id number] Age/Sex: 87 / F Adm Date: 4 Loc: Room: [address] [place] [address] Type: ADM IN Attending Dr: Lucy Lockhart MD Copies to: MD Lucy Pickering MD Ruta Semaskiene, MD~ HPI DATE OF EXAMINATION: 04/02/23 CHIEF COMPLAINT: Hyponatremia HISTORY OF PRESENT ILLNESS: 87 years old female was transferred from [facility] for hyponatremia. Itseems like the patient [...] days ago she has been admitted to [facility] and discharged. Since then she still [...] Previous records in the computer system reviewed [facility] Medical History (Updated 04/02/23 @ 20:21 by [...] Surgical History (Updated 02/01/23 @ 14:30 by [employer]) History of tonsillectomy Problem List clean-up per [...] <Electronically signed by Natividad Gregory MD> 04/02/232021 [facility] Work Phone: 1(490) 265-433211-22-2023 NoteNoted 7 beat run of NSVT on 1 week holter monitor, along with SVT, PVCs Recommended to continue coreg 25 mg bid, will place 30 day monitor, and obtain treadmill cardiolite stress test for ischemic evaluation.[facility]11-22-2023 NotePt reports that she has had 5 syncopal episodes since this Summer- some while having a BM, and other episodes while just up and walking.[facility]11-22-2023 NoteWill monitor with routine echocardiogram annually unless pt has concerning symptomsUnWyandot Memorial Hospital11-22-2023 NoteRecommended to continue ASA and pravastatinUnWyandot Memorial Hospital11-22-2023 Note Hypertension is stable Reviewed B/P log and typically in the mornings her b/p with well controlled 120's/70-80, and in the evenings can be up to 140/80 Continue all meds and will add toprolUnWyandot Memorial Hospital 01-11-2023 NoteContinue pravastatinUnWyandot Memorial Hospital11-22-2023 NoteWill monitor with routine echocardiogram annually unless pt has concerning symptomsUnWyandot Memorial Hospital11-22-2023 NoteWill monitor with routine echocardiogram annually unless pt has concerning symptomsUnWyandot Memorial Hospital11-22-2023 NotePatient here for 3 mo follow up valve disorder and carotid artery stenosis. She has had a few episodes of syncope since last visit. She recently wore Holter monitor. Says Dr. Daniels wants to add metoprolol but she does not want to add another medication. Review of Systems Cardiovascular: Positive for syncope. Hematologic/Lymphatic: Bruises/bleeds easily. All other systems reviewed and are negative.[facility] 01-11-2023 NoteUTP CARDIOLOGY PROGRESS NOTE HPI: Hiram [...] called and was evaluated in ED at [facility]. Admits she has had a couple syncopal episodes in the bathroom while having a BM- last one was at [employer]. States she also has had a couple while just up and walking- normal Day to Day activity. Daughter states that pt is usually out for about 1 minute. Of note patient was direct admitted to the [facility] end of August for electrolyte imbalances low sodium, low potassium, and acute anemia. She was evaluated at [facility] in October for ABD pain/ [...] The patient states she was shopping in [place] when she felt the need to have [...] was someone in the bathroom in the protestant and she have to go back and [...] tablet 3 levothyroxine (Syn (more content not included)...[facility]11-02-2023 Hospital Discharge instructions Patient Education 12/22/2022 12:24:19 [...] transplant. Follow these instructions at home: Take gdjl-csm-chzyqxh and prescription medicines only as told by [...] provider. Document Revised: 05/26/2020 Document Reviewed: 05/26/2020 [employer] Patient Education 2022 [employer]. Follow Up Care 09/06/2022 13:10:43 With:ABHISHEK NOONAN, MIKAYLA Pereira, URL Address: [address] [place] [address] [phone] When: Unknown Comments:6 mos w/ renal fxn (per PCP) [facility] [place] 09-05-2023 NotePt message/ call that she is [...] appointment Lesly Alaniz NP Division of Cardiology, [facility]- [phone] Pager- [phone] Email- [email or web address]08-25-2023 NoteStable and non pitting currentlyUnWyandot Memorial Hospital 10-14-2022 NoteCurrently stable Pt to call for any recurrent syncope or concernsUnWyandot Memorial Hospital08-25-2023 NoteMild on recent echo No concerning symptomsUnWyandot Memorial Hospital08-25-2023 NoteContinue ASA and statinUnWyandot Memorial Hospital08-25-2023 NoteHypertension is uncontrolled 160/75- admits this is where her b/p is at home Increase coreg to 25 mg bid, continue losartan 100 mg, hydrochlorothiazide 25 mg, and amlodipine 10 mgUnWyandot Memorial Hospital08-25-2023 Note Continue pravastatinUnWyandot Memorial Hospital08-25-2023 NoteNo concerning symptoms Will continue to monitor with echocardiogramUnWyandot Memorial Hospital 10-14-2022 NoteNo concerning symptoms Will continue to monitor with echocardiogramUnWyandot Memorial Hospital 10-14-2022 NotePatient here c/o LE edema. Says today they aren't as bad, but she states they're hard and sometimes painful. She has not had lab work since [facility] stay in July 2022. She denies chest pain, lightheadedness, and palpitations. Review of Systems Cardiovascular: Positive for dyspnea on exertion and leg swelling. Hematologic/Lymphatic: Bruises/bleeds easily. All other systems reviewed and are negative.[facility] 10-14-2022 NoteUTP CARDIOLOGY PROGRESS NOTE HPI: Hiram [...] note patient was direct admitted to the [facility] end of August for electrolyte imbalances [...] Stable and non pitting currently RTC 3-6 monthsC[facility] Clinic [facility]02-13-20[facility] Chief Complaint: [...] p.o. twice dominic (more content not included)... [facility] Center[facility] + Plan note No data available for this section [facility] Future Appointments Appointment Date:06/29/2023 09:30:00 AM Scheduled Provider:MIKAYLA WEISS PA-C Location:[facility] Appointment Type:URO Office Visit [facility] Evaluation noteNo assessment information available [facility] Work Phone: Evaluation note* Diagnosis Onset Date Resolution Status HTN (hypertension) acute Hyponatremia acute [facility] Work Phone: Hospital Discharge instructions No data available for this section [facility] Additional Instructions Take Naprosyn [...] any fevers or chills or intractable nausea vomiting.[facility] Work Phone: Progress note No data available for this section [facility] Summary Purpose Family History No Family History Records Found Relationship Condition Age at Onset Recorded Date/T cullen father Unknown Not Specified Unknown Advance Directives No Advanced Directives Records FoundDocuments on File Type Date Recorded Patient Telephone Triage Nurse Expl anation Advance Directives and Living Will Power of Technical Administrative Assistant Latest Code Status on File Code Status Date Activated Date Inactivated Comments Full Code 11/05/2018 6:34 PM Full Code 11/04/2018 5:08 PM 11/05/2018 6:34 PM Documents on File Type Date Recorded Patient Telephone Triage Nurse Expl anation Advance Directives and Livin g Will Advance Directives and Livin g Will 11/06/2018 1:08 AM AD info sheets Power of Technical Administrative Assistant Latest Code Status on File Code Status [...] sent through Care Everywhere. * Back Pain (Lebanese) documented in this encounter* Discharge Instr - [...] at most local grocery stores, pharmacies, and [employer]-stores. ? If you have any questions about [...] treatment -- -- -- -- -- 11/15/18 1606 No, patient does not have an advance directive for healthcare treatment -- -- -- -- -- Admitting Physician: Mary Vega MD PCP: Calista Aceves MD Discharging Nurse: Discharging Hospital Unit/Room#: R238/R238-01 Discharging Unit Phone Number: Emergency Contact: Extended Emergency Contact Information Primary Emergency Contact: Madrid,Andrea [facility] Mobile Relation: Spouse Secondary Emergency Contact: Liliya Townsend Mobile Relation: Child Thermodynamic Physicist needed? No Past Surgical History: Past Surgical History: Procedure Laterality Date APPENDECTOMY BACK SURGERY CHOLECYSTECTOMY LUMBAR FUSION N/A 11/13/2018 PLIF L 3-4-5 DECOMPRESSION L3, L4 performed by Lenny Corral MD at [facility] OR [facility] Right Immunization History: There is no [...] Assisted Dressing Independent Toileting Independent Feeding Independent Boatbuilder Supervisor Independent Med Delivery whole Wound Care Documentation [...] Video (Video Swallowing Test): {Done Not Done Date:[id number]} Treatments at the Time of Hospital Discharge: Respiratory Treatments: Oxygen Therapy: is not on home oxygen therapy. Ventilator: - No ventilator support Rehab Therapies: Physical Therapy and Occupational Therapy Weight Bearing Status/Restrictions: No weight bearing restirctions Other Medical Equipment (for information only, NOT a DME order): walker Other Treatments: Patient's personal belongings (please select all that are sent with patient): {[facility] DME Belongings:[id number]} RN SIGNATURE: MANAGEMENT/SOCIAL WORK SECTION Inpatient Status Date: Patient was admitted to Inpatient Acute Rehab 11/15/18 Readmission Risk Assessment Score: Readmission Risk Risk of Unplanned Readmission: 12 Discharging to Facility/ Agency Name: Karan Sosa Address: Fax: Dialysis Facility (if applicable) Name: Address: Dialysis Schedule: Phone: Fax: Watch Inspector Final Movement/Web Design Intern signature: ICIAN SECTION Prognosis: Good Condition at [...] Date: 11/20/2018 Patient Name: Hiram Madrid Account: [id number] : 1935 (83 y.o.) Room: [place] [address] Diagnosis: Impaired mobility and gait secondary to [...] L4 performed by Lenny Corral MD at [facility] OR [facility] Right Precautions: Restrictions/Precautions: Fall [...] to increasing pain) Transfer Assistance: Independent Active Full Stack Software Developer: Yes Mode of Transportation: Car 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 Leisure & Hobbies: Cooking, reading, needlepoint Additional Comments: 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, has been relying more on dtr and spouse due toworsening weakness past few weeks Current Functional Status: ADL Equipment Provided: Sock aid, Lumber Grader Feeding: Modified independent Grooming: Independent UE Bathing: [...] PM Yarely Gordon 11/20/2018 12:35 PM EDT [facility] Rehabilitation MUSIC THERAPY Date: 11/20/2018 Patient Name: Hiram Madrid Date of : 1935 (83 y.o.) Gender: female Diagnosis: Impaired mobility and gait secondary to NTSCI secondary to lumbar stenosis, radiculopathy, and spondylosis Referring Practitioner: Dr. Coker RESTRICTIONS/PRECAUTIONS: Restrictions/Precautions: Fall Risk Vision: Impaired Hearing: Exceptions to WF Hearing Exceptions: Hard [...] interested in having music therapy again. [] MT-BC will attempt to see pt again another day, if time allows. [x] Pt's planned d/c date is before MT-BC is scheduled on unit again. [] Pt NOT interested in having music therapy again. Yarely HungALEXANDRA borrero 11/20/2018 * Roselyn Schroeder CARLA - 11/20/2018 9:59 AM EDT Occupational Therapy Facility/Department: [facility] Daily Treatment [...] 11/20/2018 9:55 AM EDT Occupational Therapy Facility/Department: [facility] Daily Treatment [...] device (slide rail) Walk: 6 - Modified [place] Walks at least 150 feet with an ambulatory device, orthosis or prosthesis OR requires extra amount of time OR there is concern for safety Distance Walked: 200' Wheel Chair: 0 - Activity Not Assessed/Does Not Occur Stairs: 6 - Modified [place] Safely goes up and down at least [...] from Dr. Ellis Holguin D.O., PM&R Attending [phone] [facility] [place] * Khanh White LPN - 11/19/2018 6:00 [...] 11/19/2018 2:05 PM EDT Occupational Therapy Facility/Department: [facility] Daily Treatment [...] EDT Physical Therapy Rehab Treatment Note Facility/Department: [facility] Room: R238/R238-01 [...] Unit/Bed: R238/R238-01 Date of : 1935 Acct: [id number] Admitting Diagnosis: Impaired mobility [Z74.09] Spinal stenosis [...] and tentative discharge home tomorrow. Follows with art objects salesperson in [place]. 11/18/18: called by staff submarine warfare officer regarding tachycardia. Pt was unaware of tachycardia. [...] to have + orthostatics. Denies hx of ND, CHF or arrhythmia. Follows with a art objects salesperson from [place] for carotid artery disease and cardiac murmur. [...] to DC home and F/U with regular art objects salesperson as outpatient Attending Supervising Physician's Attestation Statement The patient is a 83 y.o. female. I have performed a history and physical examination of the patient. I discussed the case with the physician energy assistant. I reviewed the patient's Past Medical [...] EDT Physical Therapy Rehab Treatment Note Facility/Department: [facility] NAME: Hiram Madrid : 1935 (83 y.o.) [...] EDT Physical Therapy Rehab Treatment Note Facility/Department: [facility] Room: R238/R238-01 [...] Neuromuscular Education Neuromuscular Comments: Pizano Initiated: other PIPE COVERING MOLDER finished it: pt scored a 42/56. Bed [...] education: 10 Therapeutic ex: 0 Mikayla Lindsey PIPE COVERING MOLDER, 11/19/18 at 11:59 AM * Khanh White [...] Unit/Bed: R238/R238-01 Date of : 1935 Acct: [id number] Admitting Diagnosis: Impaired mobility [Z74.09] Spinal stenosis of lumbosacral region [M48.07] Admit Date: 11/15/2018 Hospital Day: 4 Current Medications: Scheduled Meds: cephALEXin 500 mg Oral 3 times per day vggephha-ltstxxrijz-itnvpmzeg Topical BID enoxaparin 30 mg Subcutaneous Daily [...] woman from homewith spouse who presents to [facility] with the above deficits which impact her [...] ms QTc Calculation (Bazett) 463 ms P [place] 58 degrees R [place] -11 degrees T [place] 5 degrees Xr Chest Standard (2 Vw) [...] from Dr. Ellis Holguin D.O., PM&R Attending [phone] [facility] [place] * Rachael Graf LPN - 11/18/2018 4:39 [...] and no guarding. Musculoskeletal: Back: Urine Culture [[id number]] Collected: 11/15/18 1905 Order Status: Completed Specimen: Urine, clean catch Updated: 11/17/18 0728 Urine Culture, Routine No growth 24 hours Narrative: ORDERED BY: ADDY COKER SOURCE: Urine Clean Catch COLLECTED: 11/15/18 19:05 ANTIBIOTICS AT DI.: RECEIVED : 11/15/18 19:05 Culture Blood #2 [[id number]] Collected: 11/15/18 1637 Order Status: Completed Specimen: Blood Updated: 11/16/18 1815 Culture, Blood 2 No Growth to date. Any change in status will be called. Narrative: ORDERED BY: COKER, ADDY SOURCE: Blood COLLECTED: 11/15/18 16:37 ANTIBIOTICS AT DI.: RECEIVED : 11/15/18 16:42 Culture Blood #1 [[id number]] Collected: 11/15/18 1637 Order Status: Completed Specimen: Blood Updated: 11/16/185 Blood Culture, Routine No Growth to date. [...] Unit/Bed: 38/R238-01 Date of : 1935 Acct: [id number] Admitting Diagnosis: Impaired mobility [Z74.09] Spinal stenosis [...] L4 performed by Lenny Corral MD at [facility] OR [facility] Right History reviewed. No pertinent family [...] History Narrative None Subjective/HPI: called by staff submarine warfare officer regarding tachycardia. Pt was unaware of tachycardia. [...] woman from homewith spouse who presents to [facility] with the above deficits which impact her [...] up labs. Blanca Holguin D.O., PM&R Attending [phone] [place] [address] Tasha * Dana Craig, RN - 11/17/2018 5:45 PM EDT Monitor room called, said pt had about 18 sec run of svt up to 218; notified cardio. * Faye Summers PTA - 11/17/2018 4:07 PM EDT Physical Therapy Rehab Treatment Note Facility/Department: [facility] Room: [place] [address] NAME: Hiram Madrid : 1935 (83 y.o.) [...] Will continue to monitor. * Roselyn Schroeder, DRAFTER PATENT - 11/17/2018 2:51 PM EDT Occupational Therapy Facility/Department: [facility] Daily Treatment [...] EDT Physical Therapy Rehab Treatment Note Facility/Department: [facility]: Hiram Madrid : 1935 [...] EDT Physical Therapy Rehab Treatment Note Facility/Department: [facility] Room: [place] [address]- NAME: Hiram Madrid : 1935 (83 y.o.) [...] 11/17/2018 8:43 AM EDT Occupational Therapy Facility/Department: [facility] Daily Treatment [...] at below status. ADL Equipment Provided: Sock aid;Lumber Grader Grooming: Independent UE Bathing: Setup LE Bathing: [...] woman from homewith spouse who presents to [facility] with the above deficits which impact her [...] consult,check dopplers Blanca Holguin D.O., PM&R Attending [phone] [facility] * Jessica Irvin, OTR/L - 11/16/2018 4:14 PM EDT Occupational Therapy Facility/Department: [facility] Daily Treatment Note NAME: Hiram Madrid : 1935 Date of Service: 11/16/2018 Discharge Recommendations: Continue to assess pending progress OT Equipment Recommendations Other: Continue to assess Assessment Performance deficits / Impairments: Decreased functional mobility ;Decreased ADL status;Decreased strength;Decreased balance;Decreased endurance;Decreased high- level IADLs Assessment: Pt. is an 83 year old woman from home with spouse who presents to [facility] with the above deficits which impact her [...] Pain: Yes Objective The patient completed the [facility] Mental Status (UMS) Examination on this date, [...] 4:04 PM EDT Patient: Hiram Madrid [facility] Date of : 1935 Acct: [id number] Admitting Diagnosis: Impaired mobility [Z74.09] Spinal stenosis of lumbosacral region [M48.07] Admit Date: 11/15/2018 Hospital Day: 1 Current Medications: Scheduled Meds: [START ON 11/17/2018] enoxaparin 40 mg Subcutaneous Daily oufgtvri-hoexzyvbes-jaywyygti Topical BID docusate sodium 100 mg Oral [...] to have + orthostatics. Denies hx of ND, CHF or arrhythmia. Follows with a art objects salesperson from [place] for carotid artery disease and cardiac murmur. [...] L4 performed by Lenny Corral MD at [facility] OR [facility] Right Social History Social [...] 100 mg Oral BID Shyla Renato Vizcaino BRIM STRETCHER - LATEX SPOOLER famotidine (PEPCID) tablet 20 mg 20 mg Oral BID Shyla Renato Vizcaino APRN - LATEX SPOOLER [START ON 11/16/2018] amLODIPine (NORVASC) tablet 10 mg 10 mg Oral Daily Shyla Renato Vizcaino APRN - LATEX SPOOLER [START ON 11/16/2018] aspirin EC tablet 81 mg 81 mg Oral Daily Shyla T EDY Vizcaino - LATEX SPOOLER cephALEXin (KEFLEX) capsule 500 mg 500 mg Oral 3 times per day Shyla T EDY Vizcaino - LATEX SPOOLER gabapentin (NEURONTIN) capsule 100 mg 100 mg Oral TID Shyla T EDY Vizcaino CNP [START ON 11/16/2018] levothyroxine (SYNTHROID) tablet 88 mcg 88 mcg Oral Daily Shyla T EDY Vizcaino- MK [START ON 11/16/2018] losartan (COZAAR) tablet 100 mg 100 mg Oral Daily Shyla T EDY Vizcaino - LATEX SPOOLER oxyCODONE-acetaminophen (PERCOCET) 5-325 MG per tablet 1 tablet 1 tablet Oral Q4H PRN Shyla Renato EDY Vizcaino CNP potassium chloride (KLOR-CON) packet 20 mEq [...] tele 7. GI/DVT proph * Mikayla Lindsey, PIPE COVERING MOLDER - 11/16/2018 2:04 PM EDT Physical Therapy Rehab Treatment Note Facility/Department: [facility] NAME: Hiram Madrid : 1935 (83 [...] education: 0 Therapeutic ex: 23 Mikayla Lindsey PIPE COVERING MOLDER, 11/16/18 at 3:57 PM * Rhiannon Blank 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 - 11/16/2018 11:21 AM EDT Speech Language [...] from home with spouse who presents to [facility] with the above deficits which impact her [...] to increasing pain) Transfer Assistance: Independent Active Full Stack Software Developer: Yes Mode of Transportation: Car Type of [...] And Coordinated: Yes Cognition Overall Cognitive Status: [facility] Cognition Comment: Comprehension: 7, Expression: 7, Social [...] supervising OTR/L STIANO Lee/Lloyd * Jena Vega, PIPE COVERING MOLDER - 11/16/2018 10:35 AM EDT Physical Therapy Rehab Treatment Note Facility/Department: [facility] Room: R238/R238-01 [...] 11/16/18 at 11:10 AM * Jessenia Gordon, DOWEL MAKER - 11/16/2018 9:35 AM EDT [facility] Rehabilitation RECREATIONAL THERAPY Initial Evaluation Date: [...] hearing in left ear) Patient seen at: [phone] Recreation Therapist received referral, chart reviewed and [...] her flower bed. Past leisure interests: Walking, protestant, had pets Future leisure interests: Emotional Observed/noted: Cooperative and Pleasant Affect: Appropriate Comments: Today s Session included: Increased Socialization, Provided active listening and Benefits of the patient's leisure and recreation pursuits being utilized as stress relievers Recommendations to utilize Recreation Therapy services, its supported services and groups include: [facility] Rehab Support Group, Pet Therapy, Leisure Education, [...] PT - 11/16/2018 8:20 AM EDT Facility/Department: [facility] Rehabilitation Initial Assessment: [facility] NAME: Hiram Madrid : 1935 [...] L4 performed by Lenny Corral MD at [facility] OR 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, [...] side to side to initiate log roll FCI goals FCI goal 1: pt to be indep with bed mobility terminal operations supervisor goal 2: pt to be indep with bed transfers terminal operations supervisor goal 3: pt to [id number] ft with supervision terminal operations supervisor goal 4: pt to navigate 4 steps with [employer] goal 5: 30/56 for [place] balance testing ELOS: Plan weeks: 2 Therapy Time: Individual Time In 1000 Time Out 1030 Minutes 30 Lakisha Trevino, PT, 11/16/18 at 12:00 PM * Marybel Ackerman, [facility] - 11/15/2018 11:29 PM EDT Tashia [...] puffs by inhalation with spacer [] Ipratropium [place] 0.02% unit dose by aerosol Ipratropium [place] MDI 2 puffs by inhalation with spacer [] Duoneb (Ipratropium + Albuterol) unit dose by aerosol Ipratropium MDI + Albuterol MDI 2 puffs byinhalation w/spacer MDI to Aerosol [] Albuterol Sulfate MDI Albuterol Sulfate 0.083% unit dose by aerosol [] Levalbuterol MDI 2 puffs by inhalation Levalbuterol 1.25 mg unit dose by aerosol [] Ipratropium [place] MDI by inhalation Ipratropium [place] 0.02% unit dose by aerosol [] Combivent [...] of lumbosacral region Impaired mobility Vasovagal syncope [facility] [address] [id number] Chief Complaint and Reason for Visit Chief Complaint SYNCOPE Chief Complaint hyponatremia hyponatremia hyponatremia Reason for Visit HTN (hypertension) Hyponatremia Chief Complaint hyponatremia hyponatremia hyponatremia high bp Reason for Visit HTN (hypertension) Hyponatremia Chief Complaint hyponatremia hyponatremia hyponatremia high bp Unknown Reason for Visit HTN (hypertension) Hyponatremia Additional Source Comments INFORMATION SOURCE (unrecogn ized section and content) DATE CREATED AUTHOR 04/20/2018 [facility] DATE CREATED AUTHOR AUTHOR'S ORGANIZ ATION 11/24/2018 [facility] DATE CREATED AUTHOR AUTHOR'S ORGANIZ ATION 06/14/2022 [facility] DATE CREATED AUTHOR AUTHOR'S ORGANIZ ATION 01/13/2023 [facility] DATE CREATED AUTHOR AUTHOR'S ORGANIZ ATION 08/27/2023 [facility] DATE CREATED AUTHOR AUTHOR'S ORGANIZ ATION 09/28/2023 [facility] Reason for Visit (unrecogniz ed section and content) Reason Comments Back Pain Left low back pain r adiates down left leg. Pain flared up last monday Status Reason Specialty Diagnoses / Procedures Referre d By Contact Referred To Contact Diagnoses Intractable back pain Ellis, Lenny H., MD [address], [address] [place] [address] [facility] Patient Care team informatio [...] Gaudencio Romero MD Other Provider Active Start: ebruspade 2023 End: April 06, 2023 KAMILA Escobar Other Provider Active Start: April 02, 2023 End: April 06, 2023 Fiona Magana MD Other Provider Active Start: Fe bruspade 2023 End: April 06, 2023 Cachorro Real MD Other Provider Active Star t: April 02, 2023 End: April 06, 2023 Warner Sood MD Other Provider Active Start: April 02, 2023 End: April 06, 2023 Boni Choi MD Other Provider Active Start: ebruspade 2023 End: April 06, 2023 Turner Frank [...] Fiona Magana MD Other Provider Active Start: Fe bruary 2023 Cachorro Real MD Other Provider Active Star t: April 03, 2023 Warner Sood MD Other Provider Active Start: April 03, 2023 Boni Choi MD Other Provider Active Start: F ebruary 2023 Turner Frank DO Other Provider Active [...] Member Role Status Dates Turner Doss MD [facility] Attending Provider Active Start: June 21, [...] BE BASED ON THE PRIMARY CLINICAL RECORDS. [employer] provides no warranty or guarantee of the accuracy or completeness of information in this document.
[2023-11-24 12:30] LABS: Anion Gap 9.4; BUN Creatinine Ratio 13.4; Calcium 9.3 mg/dL (8.5-10.1); Carbon Dioxide 28.8 mmol/L (21.0-32.0); Chloride 98 mmol/L (98-107); Estimated GFR (African America >60 (>=60 mL/min/1.73m^2); Estimated GFR (Non-African Ame >60 (>=60 mL/min/1.73m^2); Glucose 92 mg/dL (74-106); Potassium 4.2 mmol/L (3.5-5.1); Sodium 132 mmol/L (136-145)
== END 2023-11-24 10:59 | disposition home or self-care (01) ==
LOC: LAB 10:59
PROVIDERS: PCP Family Medicine; Visit Provider Family Medicine
DX: E87.1 Hypo-osmolality and hyponatremia (principal)
CPT/HCPCS: 36415; 80048

== ENCOUNTER 2023-12-08 10:23 | Outpatient (OUT) | payer MEDICARE, OTHER, SELFPAY ==
--- OUTSIDE RECORDS SUMMARY | 2023-12-08 10:28 | XMS_ITS | CCD ---
Author Organization [facility] CliniSyin Care Team Providers Care Manager Council Name Role Phone PHYSICIAN, DEFAULT Admitting Unavailable [...] [phone] DO Camacho Cooper Emergency Provider [facility] Addy Euceda Primary Care Physician VALERIE [...] Other Provider DO Turner Frank Attending Provider [phone] MD Turner Nielsen Emergency Provider MD Addy Daniels Primary Care Provider MD Lucy Lockhart Admit Provider MD Gaudencio Romero Other Provider Ramses, DYE COLORIST FORMULATOR-C Katie Other Provider Unavailable MD Fiona Magana Other Provider MD Cachorro Real Other Provider MD Warner Sood Other Provider MD Boni Choi Other Provider DO Turner Frank Attending Provider [phone] MD Turner Nielsen Emergency Provider MD Turner Doss Attending Provider [phone] Turner Nielsen Admitting Unavailable Turner Nielsen Attending [...] Allergy 8 Hives, Eruption of skin (disorder) [place], [place] (2 sources) predniSONE Drug Allergy 7 [facility] Repository (8 sources) atorvastatin; Translations: [atorvastatin] Drug Allergy 3 Unknown (qualifier value), Weal (disorder) [facility] (4 sources) Ibuprofen; Translations: [ibuprofen] Drug Allergy Unknown (qualifier value), Stomach ache (finding) [facility] (4 sources) Corticosteroids; Translations: [Corticosteroids (Glucocorticoids )] Allergy to substance 3 Unknown Reaction [facility] (1 source) atorvastatin Drug Allergy 4 [facility] Repository (1 source) predniSONE Drug Allergy 4 [facility] Repository Medications Current Medications Medication Drug [...] Antibacterial, Polymyxin-class Antibacterial Start: 11-16-2018 End: 11-18-2018 zhtxksih-ryflymnrpq-orkovisn n (NEOSPORIN) ointment carvedilol 6.25 mg oral [...] Date: 04/19/23 Status: Ordered polyethylene glycol 3350 03650 mg powder for oral solution (1 source) Osmotic Laxative Start: 11-15-2018 polyethylene glycol (GLYCOLAX) packet 17 g Potassium Chloride (12 sources) Start: 08-10-2022 Potassium Chlo ride (Tzy-Pgbg-Mxs 10) 20 mEq, Oral, TID Start Date: 08/10/22 Status: Ordered Start: 08-10-2022 Potassium Chlo ride (Lff-Snfe-Yfv 10) mEq, Oral, BID Start Date: 08/10/22 [...] 0 Start Date: 08/09/22 Status: Ordered sennosides, mcc 8.6 mg oral tablet (1 [...] procedure, # 2 tab(s), Refills(s) 0, Pharmacy: [facility], 155, cm, 08/10/22 9:03:00 [...] 12-31-2021 Episodic 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 source) 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 Normal [facility] Ambulatory Visit Summaryon 0 06-28-2023 Ambulatory [...] mg DR Tab) potassium chloride (Potassium Chloride (Nfc-Phjz-Ldw 10)) pravastatin (pravastatin 80 mg Tab) Procedures [...] or concerns Unchanged potassium chloride (Potassium Chloride (Uzx-Usyc-Uqy 10)) 20 Milliequivalent By Mouth 3 times [...] choosing us for your care. Chago Russo [facility] General Surgery Office/Clini c Noteon 06-28-2023 General [...] mg= 1 tab(s), Oral, Daily Potassium Chloride (Lju-Fvnl-Acy 10), 20 mEq, Oral, TID pravastatin 80 [...] influenza virus vaccine, inactivated 12/11/2014 Recorded Normal [facility] Comment on above: Result Comment: Elec tronically Signed By: ROMARIO DUMONT, Turner Connor\Date and Time Signed: 06/28/23 15:02 EDT Pathology Noteon 06-26-2023 Pathology Note [id number] #1.00TIFF Normal [facility] Operative Reporton Operative Report [id number] #1.00TIFF Normal [facility] Carlos 06-21-2023 L Specimen: [id number] Received: 06/22/23 Status: SOUT Req Num: [id number] Spec Type: Surgical Subm Dr: Turner Doss MD FACS Tissues: A Skin-Other than Cyst, tag, debridement or plastic repair (LT CHEEK) Procedures: HE, Gross/Micro L4 Age/ Patient Sex Location Account Attending Physician Hiram Madrid 87/F LABELL [id number] Turner Doss MD FACS SPEC NUM: [id number] RECD: 06/22/23 STATUS: BEST REQ NUM: [id number] DI: 06/21/[address]: Turner Doss MD FACS ENTERED: 06/22/23 [facility] DR: Lucian Avilez SPEC TYPE: Surgical [...] Changing lesion left cheek TW CPT Codes 13813 Specimen: [id number] Received: 06/22/23 Status: BEST Kandice Num: [id number] Spec Type: Surgical Subm Dr: Turner Doss MD [facility] Tissues: A Skin-Other than Cyst, tag, debridement or plastic repair (LT CHEEK) Procedures: Antonio GOYAL/Karyna L4 Patient: Hiram Madrid [id number] (Continued) Signed (signature on file) Ángel Dodson MD 06/23/23 1634 Normal [facility] Consent for Procedure/Surger bernice 05-04-2023 Consent for Procedure/Surgery [id number] #1.00TIFF [facility] Facesheeton 05-04-2023 Facesheet [id number] #1.00TIFF [facility] Ambulatory Visit Summaryon 0 05-03-2023 Ambulatory [...] mg DR Tab) potassium chloride (Potassium Chloride (Exs-Fdpc-Kfn 10)) pravastatin (pravastatin 80 mg Tab) Procedures [...] MIKAYLA WEISS PA-C Where: [facility] Physician Referralon 024 Physician Referral [id number] #1.00TIFF [facility] Physician Referralon 024 Physician Referral [id number] #1.00TIFF [facility] Laboratory - Chemistry and C hemistry - challengeon 04-12-2023 Calcium [Mass/Vol] 8.9 mg/dL [facility] Chloride [Moles/Vol] 98 mmol/L [facility] CO2 [Moles/Vol] 25.9 mmol/L [facility] Creatinine [Mass/Vol] 0.76 mg/dL [facility] Glucose [Mass/Vol] 113 mg/dL [facility] Potassium [Moles/Vol] 4.0 mmol/L [facility] Sodium [Moles/Vol] 135 mmol/L [facility] Urea nitrogen [Mass/Vol] 12.0 mg/dL [facility] Basic Metabolic Panelon 03-23 Creatinine Clr Calc Pharmacy 42.78 Normal [facility] Comment on above: Result Comment: PERF ORMED BY: [place] [address] PATHOLOGIST LYE BATH OPERATOR GOSIA MCADAMS M.D. Performed By: #### T 4F, BMP #### [address] GFR/1.73 sq M.predicted MDRD (S/P/Bld) [Vol rate/Area] mL/min/{1.73_m2} Normal [facility] Comment on above: Performed By: #### T 4F, BMP #### [place] [address] [place] Calcium [Mass/volume] in Ser um or PlasmaOrdered By: Turner Frank on 04-05-2023 Calcium [Mass/Vol] 9.2 mg/dL Normal 8.6-10.3 [facility] Comment on above: Performed By: #### T 4F, BMP #### [facility] [address] [place] [address] [place] Carbon dioxide, total [Moles /volume] in Serum or PlasmaOrdered By: Turner Frank on 04-05-2023 CO2 [Moles/Vol] 27.7 mmol/L Normal 21.0-31.0 [facility] Comment on above: Performed By: #### T 4F, BMP #### [facility] [address] [place] [address] [place] Chloride [Moles/volume] in S willa or PlasmaOrdered By: Turner Frank on 04-05-2023 Chloride [Moles/Vol] 91 mmol/L Low 98-107 [facility] Comment on above: Performed By: #### T 4F, BMP #### [facility] [address] Creatinine [Mass/volume] in Serum or PlasmaOrdered By: Turner Frank on 04-05-2023 Creatinine [Mass/Vol] 0.56 mg/dL Low 0.60-1.20 [facility] Comment on above: Performed By: #### T 4F, BMP #### [facility] [address] Glucose [Mass/volume] in Ser um or PlasmaOrdered By: Turner Frank on 04-05-2023 Glucose [Mass/Vol] 116 mg/dL High 70-100 [facility] Comment on above: ADA recommended refe rence rangeRandom Glucose Reference Range is dependent on time and content of last meal. Glucose of more than 200 mg/dL in a nonstressed, ambulatory subject supports the diagnosis of Diabetes Mellitus. Result Comment: [place] Glucose Reference Range is dependent on time and content of last meal. Glucose of more than 200 mg/dL in a nonstressed, ambulatory subject supports the diagnosis of Diabetes Mellitus. ADA recommended reference range Performed By: #### T 4F, BMP #### [facility] [address] [place] [address] No Panel InformationOrdered By: Turner Frank on 04-05-2023 Estimated GFR (CKD-EPI) > 60.0 mL/Min [facility] Creatinine Clearance (Chem 42.78 [facility] Potassium [Moles/volume] in Serum or PlasmaOrdered By: Turner Frank on 04-05-2023 Potassium [Moles/Vol] 3.5 mmol/L Normal 3.5-5.1 [facility] Comment on above: Performed By: #### T 4F, BMP #### [facility] [address] Serum or plasma anion gap de terminationOrdered By: Turner Frank on 04-05-2023 Anion gap [Moles/Vol] 14.8 mmol/L Normal 6.0-15.0 [facility] Comment on above: Performed By: #### T 4F, BMP #### [address] Sodium [Moles/volume] in Ser um or PlasmaOrdered By: Turner Frank on 04-05-2023 Sodium [Moles/Vol] 130 mmol/L Low 136-145 [facility] Comment on above: Performed By: #### T 4F, BMP #### [address] Urea nitrogen [Mass/volume] in Serum or PlasmaOrdered By: Turner Frank on 04-05-2023 Urea nitrogen [Mass/Vol] 8 mg/dL Normal 7-25 [facility] Comment on above: Performed By: #### T 4F, BMP #### [address] Basic Metabolic Panelon 03-23 Anion gap [Moles/Vol] 10.8 mmol/L Normal 6.0-15.0 [facility] Comment on above: Performed By: #### T 4F, BMP #### [address] Calcium [Mass/Vol] 9.0 mg/dL Normal 8.6-10.3 [facility] Comment on above: Performed By: #### T 4F, BMP #### [address] Chloride [Moles/Vol] 92 mmol/L Low 98-107 [facility] Comment on above: Performed By: #### T 4F, BMP #### [address] CO2 [Moles/Vol] 26.3 mmol/L Normal 21.0-31.0 [facility] Comment on above: Performed By: #### T 4F, BMP #### [place] [address] [place] Creatinine [Mass/Vol] 0.61 mg/dL Normal 0.60-1.20 [facility] Comment on above: Performed By: #### T 4F, BMP #### [place] [address] [place] Creatinine Clr Calc Pharmacy 42.78 Normal [facility] Comment on above: Result Comment: PERF ORMED BY: [place] [address] PATHOLOGIST LYE BATH OPERATOR GOSIA MCADAMS M.D. Performed By: #### T 4F, BMP #### [place] [address] [place] GFR/1.73 sq M.predicted MDRD (S/P/Bld) [Vol rate/Area] mL/min/{1.73_m2} Normal [facility] Comment on above: Performed By: #### T 4F, BMP #### [address] Glucose [Mass/Vol] 177 mg/dL High 70-100 [facility] Comment on above: Result Comment: [place] Glucose Reference Range is dependent on time and content of last meal. Glucose of more than 200 mg/dL in a nonstressed, ambulatory subject supports the diagnosis of Diabetes Mellitus. ADA recommended reference range Performed By: #### T 4F, BMP #### [place] [address] [place] Potassium [Moles/Vol] 3.1 mmol/L Low 3.5-5.1 [facility] Comment on above: Performed By: #### T 4F, BMP #### [place] [address] [place] Sodium [Moles/Vol] 126 mmol/L Low 136-145 [facility] Comment on above: Performed By: #### T 4F, BMP #### [place] [address] [place] Urea nitrogen [Mass/Vol] 7 mg/dL Normal 7-25 [facility] Comment on above: Performed By: #### T 4F, BMP #### [facility] [address] Anion gap [Moles/Vol] 10.3 mmol/L Normal 6.0-15.0 [facility] Comment on above: Performed By: #### T 4F, BMP #### [address] Calcium [Mass/Vol] 8.6 mg/dL Normal 8.6-10.3 [facility] Comment on above: Performed By: #### T 4F, BMP #### [address] Chloride [Moles/Vol] 93 mmol/L Low 98-107 [facility] Comment on above: Performed By: #### T 4F, BMP #### [address] CO2 [Moles/Vol] 27.2 mmol/L Normal 21.0-31.0 [facility] Comment on above: Performed By: #### T 4F, BMP #### [address] Creatinine [Mass/Vol] 0.59 mg/dL Low 0.60-1.20 [facility] Comment on above: Performed By: #### T 4F, BMP #### [address] Creatinine Clr Calc Pharmacy 42.39 Normal [facility] Comment on above: Performed By: #### T 4F, BMP #### [place] [address] [place] GFR/1.73 sq M.predicted MDRD (S/P/Bld) [Vol rate/Area] mL/min/{1.73_m2} Normal [facility] Comment on above: Performed By: #### T 4F, BMP #### [address] Glucose [Mass/Vol] 107 mg/dL High 70-100 [facility] Comment on above: Result Comment: [place] Glucose Reference Range is dependent on time and content of last meal. Glucose of more than 200 mg/dL in a nonstressed, ambulatory subject supports the diagnosis of Diabetes Mellitus. ADA recommended reference range Performed By: #### T 4F, BMP #### [address] Potassium [Moles/Vol] 3.5 mmol/L Normal 3.5-5.1 [facility] Comment on above: Performed By: #### T 4F, BMP #### [address] Sodium [Moles/Vol] 127 mmol/L Low 136-145 [facility] Comment on above: Performed By: #### T 4F, BMP #### [address] Urea nitrogen [Mass/Vol] 7 mg/dL Normal 7-25 [facility] Comment on above: Performed By: #### T 4F, BMP #### [address] Thyroxine (T4) free [Mass/vo lume] in Serum or PlasmaOrdered By: Turner Frank on 04-04-2023 Free T4 [Mass/Vol] 1.41 ng/dL High 0.61-1.12 [facility] Comment on above: Result Comment: PERF ORMED BY: [place] [address] PATHOLOGIST LYE BATH OPERATOR GOSIA MCADAMS M.D. Performed By: #### T 4F, BMP #### [place] [address] [place] Alanine aminotransferase [En zymatic activity/volume] in Serum or PlasmaOrdered By: Natividad Gregory on 04-03-2023 ALT [Catalytic activity/Vol] 14 U/L Normal 7-52 [facility] Comment on above: Performed By: #### C BC, CMP #### [place] [address] [place] Albumin [Mass/volume] in Ser um or Plasma by Bromocresol green (BCG) dye binding methoOrdered By: Natividad Gregory on 04-03-2023 Albumin BCG dye [Mass/Vol] 3.7 g/dL 3.5-5.7 [facility] Alkaline phosphatase [Enzyma tic activity/volume] in Serum or PlasmaOrdered By: Natividad Gregory on 04-03-2023 ALP [Catalytic activity/Vol] 56 U/L Normal 34-104 [facility] Comment on above: Performed By: #### C BC, CMP #### [address] Aspartate aminotransferase [ Enzymatic activity/volume] in Serum or PlasmaOrdered By: Natividad Gricele on 04-03-2023 AST [Catalytic activity/Vol] 20 U/L Normal 13-39 [facility] Comment on above: Performed By: #### C BC, CMP #### [address] Automated basophil %Ordered By: Natividad Gregory on 04-03-2023 Basophils/100 WBC (Bld) 0.6 % Normal . [facility] Comment on above: Performed By: #### C BC, CMP #### [address] Automated basophil countOrde red By: Natividad Gregory on 04-03-2023 Basophils (Bld) [#/Vol] 0.1 10*3/uL Normal 0.0-0.2 [facility] Comment on above: Result Comment: PERF ORMED BY: [place] [address] PATHOLOGIST LYE BATH OPERATOR GOSIA MCADAMS M.D. Performed By: #### C BC, CMP #### [address] Automated blood monocyte cou ntOrdered By: Natividad Gregory on 04-03-2023 Monocytes (Bld) [#/Vol] 1.1 10*3/uL High 0.0-0.8 [facility] Comment on above: Performed By: #### C BC, CMP #### [address] Automated eosinophil %Ordere d By: Natividad Gregory on 04-03-2023 Eosinophils/100 WBC (Bld) 0.8 % Normal . [facility] Comment on above: Performed By: #### C BC, CMP #### [address] Automated eosinophil countOr dered By: Natividad Gregory on 04-03-2023 Eosinophils (Bld) [#/Vol] 0.1 10*3/uL Normal 0.0-0.45 [facility] Comment on above: Performed By: #### C BC, CMP #### [address] Automated monocyte %Ordered By: Natividad Gregory on 04-03-2023 Monocytes/100 WBC (Bld) 10.3 % Normal . [facility] Comment on above: Performed By: #### C BC, CMP #### [address] Automated neutrophil %Ordere d By: Natividad Gregory on 04-03-2023 Neutrophils/100 WBC (Bld) 72.7 % Normal . [facility] Comment on above: Performed By: #### C BC, CMP #### [address] Basic Metabolic Panelon 03-23 Anion gap [Moles/Vol] 13.3 mmol/L Normal 6.0-15.0 [facility] Comment on above: Performed By: #### T 4F, BMP #### [address] Calcium [Mass/Vol] 8.9 mg/dL Normal 8.6-10.3 [facility] Comment on above: Performed By: #### T 4F, BMP #### [address] Chloride [Moles/Vol] 86 mmol/L Low 98-107 [facility] Comment on above: Performed By: #### T 4F, BMP #### [address] CO2 [Moles/Vol] 26.0 mmol/L Normal 21.0-31.0 [facility] Comment on above: Performed By: #### T 4F, BMP #### [address] Creatinine [Mass/Vol] 0.65 mg/dL Normal 0.60-1.20 [facility] Comment on above: Performed By: #### T 4F, BMP #### [place] [address] [place] Creatinine Clr Calc Pharmacy 42.39 Normal [facility] Comment on above: Result Comment: PERF ORMED BY: [place] [address] PATHOLOGIST LYE BATH OPERATOR GOSIA MCADAMS M.D. Performed By: #### T 4F, BMP #### [place] [address] [place] GFR/1.73 sq M.predicted MDRD (S/P/Bld) [Vol rate/Area] mL/min/{1.73_m2} Normal [facility] Comment on above: Performed By: #### T 4F, BMP #### [address] Glucose [Mass/Vol] 170 mg/dL High 70-100 [facility] Comment on above: Result Comment: [facility] Glucose Reference Range is dependent on time and content of last meal. Glucose of more than 200 mg/dL in a nonstressed, ambulatory subject supports the diagnosis of Diabetes Mellitus. ADA recommended reference range Performed By: #### T 4F, BMP #### [address] Potassium [Moles/Vol] 3.3 mmol/L Low 3.5-5.1 [facility] Comment on above: Performed By: #### T 4F, BMP #### [address] Sodium [Moles/Vol] 122 mmol/L Off scale low 136-145 [facility] Comment on above: Result Comment: Crit ical Result Called to and read back by: NOT FIRST at: 04/03/2023 19:17:43 by:[id number] Performed By: #### T 4F, BMP #### [facility] [address] Urea nitrogen [Mass/Vol] 7 mg/dL Normal 7-25 [facility] Comment on above: Performed By: #### T 4F, BMP #### [facility] [address] Anion gap [Moles/Vol] 14.6 mmol/L Normal 6.0-15.0 [facility] Comment on above: Performed By: #### T 4F, BMP #### [facility] [address] Calcium [Mass/Vol] 8.8 mg/dL Normal 8.6-10.3 [facility] Comment on above: Performed By: #### T 4F, BMP #### [place] [address] [place] Chloride [Moles/Vol] 81 mmol/L Low 98-107 [facility] Comment on above: Performed By: #### T 4F, BMP #### [place] [address] [place] CO2 [Moles/Vol] 26.8 mmol/L Normal 21.0-31.0 [facility] Comment on above: Performed By: #### T 4F, BMP #### [address] Creatinine [Mass/Vol] 0.61 mg/dL Normal 0.60-1.20 [facility] Comment on above: Performed By: #### T 4F, BMP #### [facility] [address] [place] [address] [place] Creatinine Clr Calc Pharmacy 42.39 Normal [facility] Comment on above: Result Comment: PERF ORMED BY: [place] [address] PATHOLOGIST LYE BATH OPERATOR GOSIA MCADAMS M.D. Performed By: #### T 4F, BMP #### [place] [address] [place] GFR/1.73 sq M.predicted MDRD (S/P/Bld) [Vol rate/Area] mL/min/{1.73_m2} Normal [facility] Comment on above: Performed By: #### T 4F, BMP #### [facility] [address] Glucose [Mass/Vol] 108 mg/dL High 70-100 [facility] Comment on above: Result Comment: [place] Glucose Reference Range is dependent on time and content of last meal. Glucose of more than 200 mg/dL in a nonstressed, ambulatory subject supports the diagnosis of Diabetes Mellitus. ADA recommended reference range Performed By: #### T 4F, BMP #### [address] Potassium [Moles/Vol] 3.4 mmol/L Low 3.5-5.1 [facility] Comment on above: Performed By: #### T 4F, BMP #### [place] [address] [place] Sodium [Moles/Vol] 119 mmol/L Off scale low 136-145 [facility] Comment on above: Result Comment: Crit ical Result Called to and read back by: NOT FIRST TIME CRITICAL at: 04/03/2023 14:56:28 by:SUN Performed By: #### T 4F, BMP #### [place] [address] [place] Urea nitrogen [Mass/Vol] 7 mg/dL Normal 7-25 [facility] Comment on above: Performed By: #### T 4F, BMP #### [place] [id number] [place] Anion gap [Moles/Vol] 16.6 mmol/L High 6.0-15.0 [facility] Comment on above: Performed By: #### T 4F, BMP #### [place] [address] [place] Calcium [Mass/Vol] 9.0 mg/dL Normal 8.6-10.3 [facility] Comment on above: Performed By: #### T 4F, BMP #### [address] Chloride [Moles/Vol] 81 mmol/L Low 98-107 [facility] Comment on above: Performed By: #### T 4F, BMP #### [address] CO2 [Moles/Vol] 25.7 mmol/L Normal 21.0-31.0 [facility] Comment on above: Performed By: #### T 4F, BMP #### [address] Creatinine [Mass/Vol] 0.63 mg/dL Normal 0.60-1.20 [facility] Comment on above: Performed By: #### T 4F, BMP #### [address] Creatinine Clr Calc Pharmacy 42.39 Normal [facility] Comment on above: Result Comment: PERF ORMED BY: [place] [address] PATHOLOGIST LYE BATH OPERATOR GOSIA MCADAMS M.D. Performed By: #### T 4F, BMP #### [address] GFR/1.73 sq M.predicted MDRD (S/P/Bld) [Vol rate/Area] mL/min/{1.73_m2} Normal [facility] Comment on above: Performed By: #### T 4F, BMP #### [address] Glucose [Mass/Vol] 123 mg/dL High 70-100 [facility] Comment on above: Result Comment: [place] Glucose Reference Range is dependent on time and content of last meal. Glucose of more than 200 mg/dL in a nonstressed, ambulatory subject supports the diagnosis of Diabetes Mellitus. ADA recommended reference range Performed By: #### T 4F, BMP #### [address] Potassium [Moles/Vol] 3.3 mmol/L Low 3.5-5.1 [facility] Comment on above: Performed By: #### T 4F, BMP #### [address] Sodium [Moles/Vol] 120 mmol/L Off scale low 136-145 [facility] Comment on above: Result Comment: Crit ical Result Called to and read back by: NOT FIRST TIME CRITICAL at: 04/03/2023 13:00:21 by:SUN Performed By: #### T 4F, BMP #### [address] Urea nitrogen [Mass/Vol] 7 mg/dL Normal 7-25 [facility] Comment on above: Performed By: #### T 4F, BMP #### [address] Anion gap [Moles/Vol] 10.9 mmol/L Normal 6.0-15.0 Th e [facility] Comment on above: Performed By: #### T 4F, BMP #### [address] Calcium [Mass/Vol] 8.6 mg/dL Normal 8.6-10.3 [facility] Comment on above: Performed By: #### T 4F, BMP #### [address] Chloride [Moles/Vol] 82 mmol/L Low 98-107 [facility] Comment on above: Performed By: #### T 4F, BMP #### [place] [address] [place] CO2 [Moles/Vol] 28.3 mmol/L Normal 21.0-31.0 [facility] Comment on above: Performed By: #### T 4F, BMP #### [place] [address] [place] Creatinine [Mass/Vol] 0.60 mg/dL Normal 0.60-1.20 [facility] Comment on above: Performed By: #### T 4F, BMP #### [place] [address] [place] Glucose [Mass/Vol] 121 mg/dL High 70-100 [facility] Comment on above: Result Comment: [place] Glucose Reference Range is dependent on time and content of last meal. Glucose of more than 200 mg/dL in a nonstressed, ambulatory subject supports the diagnosis of Diabetes Mellitus. ADA recommended reference range Performed By: #### T 4F, BMP #### [address] Potassium [Moles/Vol] 3.2 mmol/L Low 3.5-5.1 [facility] Comment on above: Performed By: #### T 4F, BMP #### [address] Sodium [Moles/Vol] 118 mmol/L Off scale low 136-145 [facility] Comment on above: Result Comment: Crit ical Result Called to and read back by: NOT FIRST TIME at: 04/03/2023 08:56:25 by:[id number] Performed By: #### T 4F, BMP #### [address] Urea nitrogen [Mass/Vol] 5 mg/dL Low 7-25 [facility] Comment on above: Performed By: #### T 4F, BMP #### [address] Anion gap [Moles/Vol] 14.1 mmol/L Normal 6.0-15.0 [facility] Comment on above: Performed By: #### T 4F, BMP #### [place] [address] [place] Calcium [Mass/Vol] 8.3 mg/dL Low 8.6-10.3 [facility] Comment on above: Performed By: #### T 4F, BMP #### [place] [address] [place] Chloride [Moles/Vol] 82 mmol/L Low 98-107 [facility] Comment on above: Performed By: #### T 4F, BMP #### [place] [address] [place] CO2 [Moles/Vol] 25.8 mmol/L Normal 21.0-31.0 [facility] Comment on above: Performed By: #### T 4F, BMP #### [address] Creatinine [Mass/Vol] 0.59 mg/dL Low 0.60-1.20 [facility] Comment on above: Performed By: #### T 4F, BMP #### [place] [address] [place] Creatinine Clr Calc Pharmacy 42.94 Normal [facility] Comment on above: Result Comment: PERF ORMED BY: [place] [address] PATHOLOGIST LYE BATH OPERATOR GOSIA MCADAMS M.D. Performed By: #### T 4F, BMP #### [place] [address] [place] GFR/1.73 sq M.predicted MDRD (S/P/Bld) [Vol rate/Area] mL/min/{1.73_m2} Normal [facility] Comment on above: Performed By: #### T 4F, BMP #### [address] Glucose [Mass/Vol] 102 mg/dL High 70-100 [facility] Comment on above: Result Comment: [place] Glucose Reference Range is dependent on time and content of last meal. Glucose of more than 200 mg/dL in a nonstressed, ambulatory subject supports the diagnosis of Diabetes Mellitus. ADA recommended reference range Performed By: #### T 4F, BMP #### [address] Potassium [Moles/Vol] 2.9 mmol/L Off scale low 3.5-5.1 [facility] Comment on above: Result Comment: Crit ical Result Called to and read back by: TADEO BEAUCHAMP at: 04/03/2023 03:37:07 by:[id number] Performed By: #### T 4F, BMP #### [place] [address] [place] Sodium [Moles/Vol] 119 mmol/L Off scale low 136-145 [facility] Comment on above: Result Comment: Crit ical Result Called to and read back by: TADEO BEAUCHAMP at: 04/03/2023 03:37:07 by:[id number] Performed By: #### T 4F, BMP #### [address] Urea nitrogen [Mass/Vol] 6 mg/dL Low 7-25 [facility] Comment on above: Performed By: #### T 4F, BMP #### [address] Bilirubin.total [Mass/volume ] in Serum or PlasmaOrdered By: Natividad Gregory on 04-03-2023 Bilirubin [Mass/Vol] 0.7 mg/dL Normal 0.3-1.0 [facility] Comment on above: Performed By: #### C BC, CMP #### [address] Complete Blood Count Auto Di ffon 04-03-2023 Mean Corpuscular HGB Conc 35.8 g/dL High 32.0-35.0 [facility] Comment on above: Performed By: #### C BC, CMP #### [address] NRBC% 0.3 /100{WBC} Normal 0-0.5 [facility] Comment on above: Performed By: #### C BC, CMP #### [address] Comprehensive Metabolic Pane carlos 04-03-2023 Albumin [Mass/Vol] 3.7 g/dL Normal 3.5-5.7 [facility] Comment on above: Performed By: #### C BC, CMP #### [address] Anion gap [Moles/Vol] 12.9 mmol/L Normal 6.0-15.0 [facility] Comment on above: Performed By: #### C BC, CMP #### [address] Calcium [Mass/Vol] 8.5 mg/dL Low 8.6-10.3 [facility] Comment on above: Performed By: #### C BC, CMP #### [address] Chloride [Moles/Vol] 81 mmol/L Low 98-107 [facility] Comment on above: Performed By: #### C BC, CMP #### [address] CO2 [Moles/Vol] 26.1 mmol/L Normal 21.0-31.0 [facility] Comment on above: Performed By: #### C BC, CMP #### [address] Creatinine [Mass/Vol] 0.58 mg/dL Low 0.60-1.20 [facility] Comment on above: Performed By: #### C BC, CMP #### [place] [address] [place] Creatinine Clr Calc Pharmacy 42.94 Normal [facility] Comment on above: Result Comment: PERF ORMED BY: [place] [address] PATHOLOGIST LYE BATH OPERATOR GOSIA MCADAMS M.D. Performed By: #### C BC, CMP #### [place] [address] [place] GFR/1.73 sq M.predicted MDRD (S/P/Bld) [Vol rate/Area] mL/min/{1.73_m2} Normal [facility] Comment on above: Performed By: #### C BC, CMP #### [address] Glucose [Mass/Vol] 136 mg/dL High 70-100 [facility] Comment on above: Result Comment: [place] Glucose Reference Range is dependent on time and content of last meal. Glucose of more than 200 mg/dL in a nonstressed, ambulatory subject supports the diagnosis of Diabetes Mellitus. ADA recommended reference range Performed By: #### C BC, CMP #### [address] Potassium [Moles/Vol] 3.0 mmol/L Low 3.5-5.1 [facility] Comment on above: Performed By: #### C BC, CMP #### [address] Sodium [Moles/Vol] 117 mmol/L Off scale low 136-145 [facility] Comment on above: Result Comment: Crit ical Result Called to and read back by: EDMAR PATEL at: 04/03/2023 06:09:08 by:[id number] Performed By: #### C BC, CMP #### [address] Urea nitrogen [Mass/Vol] 6 mg/dL Low 7-25 [facility] Comment on above: Performed By: #### C BC, CMP #### [address] Erythrocyte distribution wid th [Ratio] by Automated countOrdered By: Natividad Gregory on 04-03-2023 Erythrocyte distribution width (RBC) [Ratio] 13.9 % Normal 11.9-15.3 [facility] Comment on above: Performed By: #### C BC, CMP #### [address] Erythrocytes [#/volume] in B lood by Automated countOrdered By: Natividad Gregory on 04-03-2023 RBC (Bld) [#/Vol] 4.02 10*6/uL Normal 3.60-5.00 [facility] Comment on above: Performed By: #### C BC, CMP #### [address] Hematocrit [Volume Fraction] of Blood by Automated countOrdered By: Natividad Gregory on 04-03-2023 Hematocrit (Bld) [Volume fraction] 35.5 % Normal 34.0-46.4 [facility] Comment on above: Performed By: #### C BC, CMP #### [address] Hemoglobin [Mass/volume] in BloodOrdered By: Natividad Gregory on 04-03-2023 Hemoglobin (Bld) [Mass/Vol] 12.7 g/dL Normal 11.8-15.4 [facility] Comment on above: Performed By: #### C BC, CMP #### [address] Leukocytes [#/volume] correc sofiya for nucleated erythrocytes in Blood by Automated counOrdered By: Natividad Gregory on 04-03-2023 WBC corrected for nucl RBC Auto (Bld) [#/Vol] 10.6 10*3/uL 3.8-11.6 [facility] Leukocytes [#/volume] in Blo od by Automated countOrdered By: Natividad Gregory on 04-03-2023 WBC (Bld) [#/Vol] 10.6 10*3/uL Normal 3.8-11.6 [facility] Comment on above: Performed By: #### C BC, CMP #### [place] [address] [place] Lymphocytes [#/volume] in Bl ood by Automated countOrdered By: Natividad Gregory on 04-03-2023 Lymphocytes (Bld) [#/Vol] 1.7 10*3/uL Normal 1.00-4.8 [facility] Comment on above: Performed By: #### C BC, CMP #### [place] [address] [place] Lymphocytes/100 leukocytes i n Blood by Automated countOrdered By: Natividad Gregory on 04-03-2023 Lymphocytes/100 WBC (Bld) 15.6 % Normal . [facility] Comment on above: Performed By: #### C BC, CMP #### [place] [address] [place] MCH [Entitic mass] by Automa sofiya countOrdered By: Natividad Gregory on 04-03-2023 MCH (RBC) [Entitic mass] 31.6 pg Normal 24.7-34.3 [facility] Comment on above: Performed By: #### C BC, CMP #### [address] MCHC Auto (RBC) [Mass/Vol]Or dered By: Natividad Gregory on 04-03-2023 MCHC (RBC) [Mass/Vol] 35.8 g/dL 32.0-35.0 [facility] MCV [Entitic volume] by Auto mated countOrdered By: Natividad Gregory on 04-03-2023 MCV (RBC) [Entitic vol] 88.3 fL Normal 80-100 [facility] Comment on above: Performed By: #### C BC, CMP #### [address] Neutrophils [#/volume] in Bl ood by Automated countOrdered By: Natividad Gregory on 04-03-2023 Neutrophils (Bld) [#/Vol] 7.7 10*3/uL Normal 1.8-7.7 [facility] Comment on above: Performed By: #### C BC, CMP #### [address] Nucleated erythrocytes [Pres ence] in Blood by Automated countOrdered By: Natividad Gregory on 04-03-2023 Nucleated RBC Auto Ql (Bld) 0.3 /100{WBC} 0-0.5 [facility] Platelet mean volume [Entiti c volume] in Blood by Automated countOrdered By: Natividad Gregory on 04-03-2023 Platelet mean volume (Bld) [Entitic vol] 7.0 fL Normal 6.3-10.7 [facility] Comment on above: Performed By: #### C BC, CMP #### [place] [address] [place] Platelets [#/volume] in Bloo d by Automated countOrdered By: Natividad Gregory on 04-03-2023 Platelets (Bld) [#/Vol] 424 10*3/uL Normal 150-450 [facility] Comment on above: Performed By: #### C BC, CMP #### [address] Protein [Mass/volume] in Ser um or PlasmaOrdered By: Natividad Gregory on 04-03-2023 Protein [Mass/Vol] 6.1 g/dL Low 6.4-8.9 [facility] Comment on above: Performed By: #### C BC, CMP #### [address] Serum globulin measurement b y calculation (mass/volume)Ordered By: Natividad Gregory on 04-03-2023 Globulin (S) [Mass/Vol] 2.4 g/dL Normal [facility] Comment on above: Performed By: #### C BC, CMP #### [address] Serum or plasma albumin/glob ulin mass ratioOrdered By: Natividad Gregory on 04-03-2023 Albumin/Globulin [Mass ratio] 1.5 {ratio} Normal [facility] Comment on above: Performed By: #### C BC, CMP #### [address] Sodiumon 04-03-2023 Sodium [Moles/Vol] 124 mmol/L Off scale low 136-145 [facility] Comment on above: Result Comment: Crit ical Result Called to and read back by: SAMMIE GOULD at: 04/03/2023 22:42:55 by:[email or web address] PERFORMED BY: [place] [address] PATHOLOGIST LYE BATH OPERATOR GOSIA MCADAMS M.D. Performed By: #### N A #### [address] Basic Metabolic Panelon 03-23 Anion gap [Moles/Vol] 12.8 mmol/L Normal 6.0-15.0 [facility] Comment on above: Performed By: #### T SH3, MG, BMP #### [address] Calcium [Mass/Vol] 8.8 mg/dL Normal 8.6-10.3 [facility] Comment on above: Performed By: #### T SH3, MG, BMP #### [facility] [address] [place] [address] [place] Chloride [Moles/Vol] 81 mmol/L Low 98-107 [facility] Comment on above: Performed By: #### T SH3, MG, BMP #### [facility] [address] CO2 [Moles/Vol] 26.3 mmol/L Normal 21.0-31.0 [facility] Comment on above: Performed By: #### T SH3, MG, BMP #### [address] Creatinine [Mass/Vol] 0.59 mg/dL Low 0.60-1.20 [facility] Comment on above: Performed By: #### T SH3, MG, BMP #### [place] [address] [place] Creatinine Clr Calc Pharmacy 42.94 Normal [facility] Comment on above: Performed By: #### T SH3, MG, BMP #### [place] [address] [place] GFR/1.73 sq M.predicted MDRD (S/P/Bld) [Vol rate/Area] mL/min/{1.73_m2} Normal [facility] Comment on above: Performed By: #### T SH3, MG, BMP #### [place] [address] [place] Glucose [Mass/Vol] 122 mg/dL High 70-100 [facility] Comment on above: Result Comment: [place] Glucose Reference Range is dependent on time and content of last meal. Glucose of more than 200 mg/dL in a nonstressed, ambulatory subject supports the diagnosis of Diabetes Mellitus. ADA recommended reference range Performed By: #### T SH3, MG, BMP #### [address] Potassium [Moles/Vol] 3.1 mmol/L Low 3.5-5.1 [facility] Comment on above: Performed By: #### T SH3, MG, BMP #### [facility] [address] [place] [address] Sodium [Moles/Vol] 117 mmol/L Off scale low 136-145 [facility] Comment on above: Result Comment: Crit ical Result Called to and read back by: GERMAIN BEAUCHAMP at: 04/02/2023 21:52:44 by:[id number] Performed By: #### T SH3, MG, BMP #### [facility] [address] [place] [address] Urea nitrogen [Mass/Vol] 7 mg/dL Normal 7-25 [facility] Comment on above: Performed By: #### T SH3, MG, BMP #### [address] Magnesium [Mass/volume] in S willa or PlasmaOrdered By: Natividad Gregory on 04-02-2023 Magnesium [Mass/Vol] 1.9 mg/dL Normal 1.9-2.7 [facility] Comment on above: Performed By: #### T SH3, MG, BMP #### [facility] [address] [place] [address] No Panel InformationOrdered By: Natividad Gregory on 04-02-2023 Urine Osmolality 298 mosm 250-900 [facility] Osmolality, Urineon 04-02-19 24 Osmolality, Urine 298 mosm Normal 250-900 [facility] Comment on above: Result Comment: PERF ORMED BY: [place] [address] PATHOLOGIST LYE BATH OPERATOR GOSIA MCADAMS M.D. Performed By: #### U ROSMO, KERRY #### [facility] [address] [place] [address] [place] Sodium [Moles/volume] in Uri neOrdered By: Natividad Gregory on 04-02-2023 Sodium (U) [Moles/Vol] 79 mmol/L Normal [facility] Comment on above: No reference range e stablished Result Comment: No r eference range established PERFORMED BY: [facility] [address] [place] [address] PATHOLOGIST LYE BATH OPERATOR GOSIA MCADAMS M.D. Performed By: #### U ROSMO, KERRY #### [facility] [address] [place] [id number] [facility] Thyrotropin [Units/volume] i n Serum or PlasmaOrdered By: Natividad Gregory on 04-02-2023 TSH Qn 5.76 m[IU]/L High 0.45-5.33 [facility] Comment on above: Result Comment: PERF ORMED BY: [place] [address] PATHOLOGIST LYE BATH OPERATOR GOSIA MCADAMS M.D. Performed By: #### T 4F, BMP #### [facility] [address] [place] [address] Office Visiton 01-11-2023 Follow-up visit [id number] Hiram Madrid 1935 F Date Provider Department Center 01/11/2023 [facility] G[facility] Family History Problem Relation Age of Onset Hypertension Mother Lupus Mother Coronary artery disease Mother Heart attack Mother Hypertension Father Aneurysm Father Coronary artery disease Father Hypertension Sister Lupus Sister Family Status - Relation Status Age at Mother Father Sister Level of Service:12417 [place] OFFICE/OUTPATIENT ESTABLISHED MOD MDM 30-[address] [facility] Lab Reportson 12-23-2022 Lab Reports [id number] #1.00TIFF Normal [facility] Urology Office/Clinic Noteon 12-23-2022 Urology Office/Clinic [...] Pt presented to ER due to syncope. [place] was found incidentally on CT. CT AP [...] Contact Information ABHISHEK NOONAN, MIKAYLA Pereira, URL [address] [place] [address] [phone] Additional Instructions: 6 mos w/ renal fxn [...] Tab losartan 100 mg Tab Potassium Chloride (Ivr-Xase-Pwn 10), Oral, BID pravastatin 80 mg Tab [...] virus vaccine, (more content not included)... Normal [facility] Comment on above: Result Comment: Elec tronically Signed By: MIKAYLA WEISS PA-C\.br\Date and Time Signed: 12/23/22 12:13 EDT\.br\Electronically Co-Signed By: Jacquie Gan\.br\Date and Time Co-Signed: 12/22/22 12:27 EDT Ambulatory Visit Summaryon 1 02-21-2022 Ambulatory Visit Summary HIRAM MADRID :1935 Visit Date:12/22/2022 Ambulatory Visit Instructions Your Diagnosis Hydronephrosis, right Ureteral stenosis Tests Performed Urnls Dip Stick Auto w/o Microscopy POC 38301 US Renal -- Results Pending -- Please [...] 100 mg Tab) potassium chloride (Potassium Chloride (Den-Rmlt-Dop 10)) pravastatin (pravastatin 80 mg Tab) Procedures [...] [facility] Normal [facility] Patient Educationon 12-23-19 Patient Education Urology [...] Follow these instructions at home: ? Take zdju-eea-[id number] and prescription medicines only as told by [...] provider. Document Revised: 05/26/2020 Document Reviewed: 05/26/2020 [email or web address] Patient Education ? 2022 [email or web address] Normal [facility] RAD - Ultrasound Reporton RAD - Ultrasound Report [id number] #1.00TIFF Normal [facility] Orders Onlyon 10-25-2022 Orders Only [id number] Hiram Madrid 1935 F Date Provider Department Center 10/25/2022 LESLY GASPAR [facility]. Family History Problem Relation Age of Onset Hypertension Mother Lupus Mother Coronary artery disease Mother Heart attack Mother Hypertension Father Aneurysm Father Coronary artery disease Father Hypertension Sister Lupus Sister Family Status - Relation Status Age at Mother Father Sister Normal [facility] 37on 10-14-2022 37 Increase coreg/carvedilol to 25 mg twice a day- you have 12.5 mg tabs now so take 2 twice a day until this bottle is gone- your next refill will be the higher dose of 25 mg bid. Have labs drawn Normal [facility] Office Visiton 10-14-2022 Follow-up visit [id number] Greta Madridkanika Rojas 1935 F Date Provider Department Center 10/14/2022 [facility] Family History Problem Relation Age of Onset Hypertension Mother Lupus Mother Coronary artery disease Mother Heart attack Mother Hypertension Father Aneurysm Father Coronary artery disease Father Hypertension Sister Lupus Sister Family Status - Relation Status Age at Mother Father Sister Level of Service:75636 [place] OFFICE/OUTPATIENT ESTABLISHED MOD MDM 30-[address] [facility] Alanine aminotransferase [En zymatic activity/volume] in Serum or PlasmaOrdered By: Camacho Cooper on 08-05-2022 ALT [Catalytic activity/Vol] 16 U/L 7-52 [facility] Albumin [Mass/volume] in Ser um or Plasma by Bromocresol green (BCG) dye binding methoOrdered By: Camacho Cooper on 08-05-2022 Albumin BCG dye [Mass/Vol] 4.4 g/dL 3.5-5.7 [facility] Alkaline phosphatase [Enzyma tic activity/volume] in Serum or PlasmaOrdered By: Camacho Cooper on 08-05-2022 ALP [Catalytic activity/Vol] 61 U/L 34-104 [facility] Aspartate aminotransferase [ Enzymatic activity/volume] in Serum or PlasmaOrdered By: Camacho Cooper on 08-05-2022 AST [Catalytic activity/Vol] 21 U/L 13-39 [facility] Automated erythrocytes count in urine sediment (number/area)Ordered By: Camacho Cooper on 08-05-2022 RBC Auto (Urine sed) [#/Area] 0-1 [HPF] 0-4 [facility] Automated leukocytes count i n urine sediment (number/area)Ordered By: Camacho Cooper on 08-05-2022 WBC Auto (Urine sed) [#/Area] 1-2 [HPF] 0-4 [facility] Basophils Auto (Bld) [#/Vol] Ordered By: Camacho Cooper on 08-05-2022 Basophils (Bld) [#/Vol] 0.1 10*3/uL 0.0-0.2 [facility] Basophils/100 WBC Auto (Bld) Ordered By: Camacho Cooper on 08-05-2022 Basophils/100 WBC (Bld) 0.4 % . [facility] Bilirubin Test strip Ql (U)O rdered By: Camacho Cooper on 08-05-2022 Bilirubin Ql (U) Negative Negative [facility] Bilirubin.direct [Mass/volum e] in Serum or PlasmaOrdered By: Camacho Cooper on 08-05-2022 Bilirubin.direct [Mass/Vol] 0.10 mg/dL 0.03-0.18 [facility] Bilirubin.total [Mass/volume ] in Serum or PlasmaOrdered By: Camacho Cooper on 08-05-2022 Bilirubin [Mass/Vol] 0.7 mg/dL 0.3-1.0 [facility] Calcium [Mass/volume] in Ser um or PlasmaOrdered By: Camacho Cooper on 08-05-2022 Calcium [Mass/Vol] 9.7 mg/dL 8.6-10.3 [facility] Carbon dioxide, total [Moles /volume] in Serum or PlasmaOrdered By: Camacho Cooper on 08-05-2022 CO2 [Moles/Vol] 23.2 mmol/L 21.0-31.0 [facility] Chloride [Moles/volume] in S willa or PlasmaOrdered By: Camacho Cooper on 08-05-2022 Chloride [Moles/Vol] 87 mmol/L 98-107 [facility] Color Auto (U)Ordered By: Ender Cooper on 08-05-2022 Color (U) Yellow Yellow [facility] Creatinine [Mass/volume] in Serum or PlasmaOrdered By: Camacho Cooper on 08-05-2022 Creatinine [Mass/Vol] 1.03 mg/dL 0.60-1.20 [facility] Eosinophils Auto (Bld) [#/Vo l]Ordered By: Camacho Cooper on 08-05-2022 Eosinophils (Bld) [#/Vol] 0.1 10*3/uL 0.0-0.45 [facility] Eosinophils/100 WBC Auto (Bl d)Ordered By: Camacho Cooper on 08-05-2022 Eosinophils/100 WBC (Bld) 0.6 % . [facility] Erythrocyte distribution wid th Auto (RBC) [Ratio]Ordered By: Camacho Cooper on 08-05-2022 Erythrocyte distribution width (RBC) [Ratio] 13.6 % 11.9-15.3 [facility] Globulin Calc (S) [Mass/Vol] Ordered By: Camacho Cooper on 08-05-2022 Globulin (S) [Mass/Vol] 2.9 g/dL [facility] Glucose [Mass/volume] in Ser um or PlasmaOrdered By: Camacho Cooper on 08-05-2022 Glucose [Mass/Vol] 156 mg/dL 70-100 [facility] Comment on above: ADA recommended refe rence rangeRandom Glucose Reference Range is dependent on time and content of last meal. Glucose of more than 200 mg/dL in a nonstressed, ambulatory subject supports the diagnosis of Diabetes Mellitus. Hematocrit Auto (Bld) [Volum e fraction]Ordered By: Camacho Cooper on 08-05-2022 Hematocrit (Bld) [Volume fraction] 37.3 % 34.0-46.4 [facility] Hemoglobin [Mass/volume] in BloodOrdered By: Camacho Cooper on 08-05-2022 Hemoglobin (Bld) [Mass/Vol] 13.0 g/dL 11.8-15.4 [facility] Ketones Auto test strip (U) [Mass/Vol]Ordered By: Camacho Cooper on 08-05-2022 Ketones (U) [Mass/Vol] Negative Negative [facility] - UrinalysisOrder ed By: Camacho Cooper on 08-05-2022 Hyaline casts LM Ql (Urine sed) None seen [LPF] 0-8 [facility] Leukocytes [#/volume] correc sofiya for nucleated erythrocytes in Blood by Automated counOrdered By: Camacho Cooper on 08-05-2022 WBC corrected for nucl RBC Auto (Bld) [#/Vol] 14.2 10*3/uL 3.8-11.6 [facility] Lipase [Enzymatic activity/v olume] in Serum or PlasmaOrdered By: Camacho Cooper on 08-05-2022 Lipase [Catalytic activity/Vol] 23.0 U/L 11.0-82.0 [facility] Lymphocytes Auto (Bld) [#/Vo l]Ordered By: Camacho Cooper on 08-05-2022 Lymphocytes (Bld) [#/Vol] 3.1 10*3/uL 1.00-4.8 [facility] Lymphocytes/100 WBC Auto (Bl d)Ordered By: Camacho Cooper on 08-05-2022 Lymphocytes/100 WBC (Bld) 21.9 % . [facility] MCH Auto (RBC) [Entitic mass ]Ordered By: Camacho Cooper on 08-05-2022 MCH (RBC) [Entitic mass] 31.6 pg 24.7-34.3 [facility] MCHC Auto (RBC) [Mass/Vol]Or dered By: Camacho Cooper on 08-05-2022 MCHC (RBC) [Mass/Vol] 35.0 g/dL 32.0-35.0 [facility] MCV Auto (RBC) [Entitic vol] Ordered By: Camacho Cooper on 08-05-2022 MCV (RBC) [Entitic vol] 90.4 fL 80-100 [facility] Monocyte distribution width [Entitic volume] in Blood by AutomatedOrdered By: Camacho Cooper on 08-05-2022 Monocyte distribution width Auto (Bld) [Entitic vol] 20.58 % 0.00-20.00 [facility] Comment on above: For adults in ED, MD W > 20.0 may be associated with a higher risk of sepsis during the first 12 hrs of hospital admission Monocytes Auto (Bld) [#/Vol] Ordered By: Camacho Cooper on 08-05-2022 Monocytes (Bld) [#/Vol] 1.4 10*3/uL 0.0-0.8 [facility] Monocytes/100 WBC Auto (Bld) Ordered By: Camacho Cooper on 08-05-2022 Monocytes/100 WBC (Bld) 9.6 % . [facility] Neutrophils Auto (Bld) [#/Vo l]Ordered By: Camacho Cooper on 08-05-2022 Neutrophils (Bld) [#/Vol] 9.6 10*3/uL 1.8-7.7 [facility] Neutrophils/100 WBC Auto (Bl d)Ordered By: Camacho Cooper on 08-05-2022 Neutrophils/100 WBC (Bld) 67.5 % . [facility] Nitrite Test strip Ql (U)Ord ered By: Camacho Cooper on 08-05-2022 Nitrite Ql (U) Negative Negative [facility] No Panel InformationOrdered By: Camacho Cooper on 08-05-2022 Estimated GFR (CKD-EPI) 53.284 mL/Min [facility] Creatinine Clearance (Chem 35.13 [facility] Nucleated erythrocytes [Pres ence] in Blood by Automated countOrdered By: Camacho Cooper on 08-05-2022 Nucleated RBC Auto Ql (Bld) 0.1 /100{WBC} 0-0.5 [facility] Platelet mean volume Auto (B ld) [Entitic vol]Ordered By: Camacho Cooper on 08-05-2022 Platelet mean volume (Bld) [Entitic vol] 7.2 fL 6.3-10.7 [facility] Platelets Auto (Bld) [#/Vol] Ordered By: Camacho Cooper on 08-05-2022 Platelets (Bld) [#/Vol] 500 10*3/uL 150-450 [facility] Potassium [Moles/volume] in Serum or PlasmaOrdered By: Camacho Cooper on 08-05-2022 Potassium [Moles/Vol] 3.0 mmol/L 3.5-5.1 [facility] Protein Auto test strip (U) [Mass/Vol]Ordered By: Camacho Cooper on 08-05-2022 Protein (U) [Mass/Vol] Negative Negative [facility] Protein [Mass/volume] in Ser um or PlasmaOrdered By: Camacho Cooper on 08-05-2022 Protein [Mass/Vol] 7.3 g/dL 6.4-8.9 [facility] RBC Auto (Bld) [#/Vol]Ordere d By: Camacho Cooper on 08-05-2022 RBC (Bld) [#/Vol] 4.13 10*6/uL 3.60-5.00 [facility] Serum or plasma albumin/glob ulin mass ratioOrdered By: Camacho Cooper on 08-05-2022 Albumin/Globulin [Mass ratio] 1.5 {ratio} [facility] Serum or plasma anion gap de terminationOrdered By: Camacho Cooper on 08-05-2022 Anion gap [Moles/Vol] 17.8 mmol/L 6.0-15.0 [facility] Serum or plasma non-glucuron idated bilirubin measurement (mass/volume)Ordered By: Camacho Cooper on 08-05-2022 Bilirubin.indirect [Mass/Vol] 0.6 mg/dL [facility] Sodium [Moles/volume] in Ser um or PlasmaOrdered By: Camacho Cooper on 08-05-2022 Sodium [Moles/Vol] 125 mmol/L 136-145 [facility] Specific gravity Auto test s trip (U) [Rel density]Ordered By: Camacho Cooper on 08-05-2022 Specific gravity (U) [Rel density] 1.009 1.001-1.030 [facility] Squamous epithelial cells de tection in urine sediment by light microscopyOrdered By: Camacho Cooper on 08-05-2022 Epithelial cells.squamous LM Ql (Urine sed) 0-1 [HPF] 0-2 [facility] Troponin I.cardiac [Mass/vol ume] in Serum or Plasma by Detection limit <= 0.01 ng/Ordered By: Camacho Cooper on 08-05-2022 Troponin I.cardiac DL <= 0.01 ng/mL [Mass/Vol] 7.7 pg/mL 0.0-15.0 [facility] Urea nitrogen [Mass/volume] in Serum or PlasmaOrdered By: Camacho Cooper on 08-05-2022 Urea nitrogen [Mass/Vol] 12 mg/dL 7-25 [facility] Urine bacteria detection by automated methodOrdered By: Camacho Cooper on 08-05-2022 Bacteria Auto Ql (U) None seen None Seen [facility] Urine clarity by refractomet ry automatedOrdered By: Camacho Cooper on 08-05-2022 Clarity Refractometry automated (U) Cloudy Clear [facility] Urine glucose measurement by automated test strip (mass/volume)Ordered By: Camacho Cooper on 08-05-2022 Glucose Auto test strip (U) [Mass/Vol] Normal mg/dL Normal [facility] Urine hemoglobin detection b y automated test stripOrdered By: Camacho Cooper on 08-05-2022 Hemoglobin Auto test strip Ql (U) Negative Negative [facility] Urine leukocyte esterase det ection by automated test stripOrdered By: Camacho Cooper on 08-05-2022 Leukocyte esterase Auto test strip Ql (U) 1+ Negative [facility] Urobilinogen Auto test strip (U) [Mass/Vol]Ordered By: Camacho Cooper on 08-05-2022 Urobilinogen (U) [Mass/Vol] Normal mg/dL Normal [facility] WBC Auto (Bld) [#/Vol]Ordere d By: Camacho Cooper on 08-05-2022 WBC (Bld) [#/Vol] 14.2 10*3/uL 3.8-11.6 [facility] pH Auto test strip (U)Ordere d By: Camacho Cooper on 08-05-2022 pH (U) 7.0 [pH] 5.0-9.0 [facility] BNPon 06-13-2022 Natriuretic peptide B (Bld) [Mass/Vol] 142.0 pg/mL Normal <=1,800.0 [facility] Comment on above: Performed By: #### T PAWAN DENNISON #### [facility] [address] [place] [address] [id number] [address] Tasha Dodson CBC AUTO DIFFon 06-13-2022 BASO # 0.1 103/ul Normal 0.0-0.1 [facility] Comment on above: Performed By: #### T PAWAN DENNISON #### [facility] [address] [place] [address] Dr. Tasha Dodson Basophils/100 WBC (Bld) 1.0 % Normal 0.2-2.0 [facility] Comment on above: Performed By: #### T SH, BMP #### [facility] [address] [place] [address] Dr. Tasha Dodson EO # 0.3 103/ul Normal 0.0-0.7 [facility] Comment on above: Performed By: #### T SH, BMP #### [facility] [address] [place] [address] Dr. Tasha Dodson Eosinophils/100 WBC (Bld) 2.6 % Normal 0.9-7.0 [facility] Comment on above: Performed By: #### T SH, BMP #### [facility] [address] [place] [address] Dr. Tasha Dodson Erythrocyte distribution width (RBC) [Ratio] 13.4 % Normal 11.0-15.0 [facility] Comment on above: Performed By: #### T SH, BMP #### [facility] [address] [place] [address] Dr. Tasha Dodson Hematocrit (Bld) [Volume fraction] 39.5 % Normal 36.0-48.0 [facility] Comment on above: Performed By: #### T SH, BMP #### [facility] [address] [place] [address] Dr. Tasha Dodson Hemoglobin (Bld) [Mass/Vol] 13.1 g/dL Normal 12.0-16.0 [facility] Comment on above: Performed By: #### T SH, BMP #### [facility] [address] [place] [address] Dr. Tasha Dodson IG # 0.07 10e3/ul Critically high 0.00-0.03 [facility] Comment on above: Performed By: #### T SH, BMP #### [facility] [address] [place] [address] Dr. Tasha Dodson IG % 0.6 % Critically high 0.0-0.5 [facility] Comment on above: Performed By: #### T SH, BMP #### [facility] [address] [place] [address] Dr. Tasha Dodson LYMPH # 2.5 103/ul Normal 1.2-3.8 [facility] Comment on above: Performed By: #### T SH, BMP #### [facility] [address] [place] [address] Dr. Tasha Dodson Lymphocytes/100 WBC (Bld) 22.9 % Normal 20.5-60.0 [facility] Comment on above: Performed By: #### T SH, BMP #### [facility] [address] [place] [address] Dr. Tasha Dodson MANUAL DIFF REQ NO Normal [facility] Comment on above: Performed By: #### T SH, BMP #### [facility] [address] [place] [address] Dr. Tasha Dodson MCH (RBC) [Entitic mass] 30.7 pg Normal 26.7-34.0 [facility] Comment on above: Performed By: #### T SH, BMP #### [facility] [address] [place] [address] Dr. Tasha Dodson MCHC (RBC) [Mass/Vol] 33.2 g/dL Normal 29.9-35.2 [facility] Comment on above: Performed By: #### T SH, BMP #### [facility] [address] [place] [address] Dr. Tasha Dodson MCV (RBC) [Entitic vol] 92.5 fL Normal 81.0-99.0 [facility] Comment on above: Performed By: #### T SH, BMP #### [facility] [address] [place] [address] Dr. Tasha Dodson MONO # 0.8 103/ul Normal 0.3-0.8 [facility] Comment on above: Performed By: #### T SH, BMP #### [facility] [address] [place] [address] Dr. Tasha Dodson Monocytes/100 WBC (Bld) 7.0 % Normal 1.7-12.0 [facility] Comment on above: Performed By: #### T SH, BMP #### [facility] [address] [address] [address] Tasha Dodson NEUT # 7.2 103/ul Critically high 1.4-6.5 [facility] Comment on above: Performed By: #### T SH, BMP #### [facility] [address] [address] [address] Tasha Dodson Neutrophils/100 WBC (Bld) 65.9 % Normal 43.0-75.0 [facility] Comment on above: Performed By: #### T SH, BMP #### [facility] [address] [address] [address] Tasha Dodson Platelet mean volume (Bld) [Entitic vol] 8.0 fL Critically low 9.5-13.5 [facility] Comment on above: Performed By: #### T SH, BMP #### [facility] [address] [place] [address] Dr. Tasha Dodson PLT 449 103/ul Normal 150-450 [facility] Comment on above: Performed By: #### T SH, BMP #### [facility] [address] [place] [address] Dr. Tasha Dodson RBC 4.27 106/ul Normal 4.20-5.40 [facility] Comment on above: Performed By: #### T SH, BMP #### [facility] [address] [place] [address] Dr. Tasha Dodson WBC 10.9 103/ul Normal 4.0-11.0 [facility] Comment on above: Performed By: #### T SH, BMP #### [facility] [address] [place] [address] Dr. Tasha Dodson FREE THYROXINE INDEX T7on FTI 3.67 Normal 1.30-4.50 [facility] Comment on above: Performed By: #### T SH, BMP #### [facility] [address] [place] [address] Dr. Tasha Dodson T3U 36.0 % Normal 30.0-39.0 [facility] Comment on above: Performed By: #### T SH, BMP #### [facility] [address] [place] [address] Dr. Tasha Dodson T4 [Mass/Vol] 10.20 ug/dL Normal 4.80-13.90 [facility] Comment on above: Performed By: #### T SH, BMP #### [facility] [address] [place] [address] Dr. Tasha Dodson PROF CHEM 8 (BAS METB)on Anion gap [Moles/Vol] 13.8 mmol/L Normal [facility] Comment on above: Performed By: #### T SH, BMP #### [facility] [address] [place] [address] Dr. Tasha Dodson Calcium [Mass/Vol] 9.8 mg/dL Normal 8.5-10.1 [facility] Comment on above: Performed By: #### T SH, BMP #### [facility] [address] [place] [address] Dr. Tasha Dodson Chloride [Moles/Vol] 95 mmol/L Critically low 98-107 [facility] Comment on above: Performed By: #### T SH, BMP #### [facility] [address] [place] [address] Dr. Tasha Dodson CO2 [Moles/Vol] 30.5 mmol/L Normal 21.0-32.0 [facility] Comment on above: Performed By: #### T SH, BMP #### [facility] [address] [place] [address] Dr. Tasha Dodson Creatinine [Mass/Vol] 0.78 mg/dL Normal 0.55-1.02 [facility] Comment on above: Performed By: #### T SH, BMP #### [facility] [address] [place] [address] Dr. Tasha Dodson EGFR-AF GUYANESE >60 Normal >=60 [facility] Comment on above: Performed By: #### T SH, BMP #### [facility] [address] [place] [address] Dr. Tasha Dodson EGFR-NON AF GUYANESE >60 Normal >=60 [facility] Comment on above: Performed By: #### T SH, BMP #### [facility] [address] [place] [address] Dr. Tasha Dodson Glucose [Mass/Vol] 108 mg/dL Critically high 74-106 [facility] Comment on above: Performed By: #### T SH, BMP #### [facility] [address] [place] [address] Dr. Tasha Dodson Potassium [Moles/Vol] 3.3 mmol/L Critically low 3.5-5.1 [facility] Comment on above: Performed By: #### T SH, BMP #### [facility] [address] [place] [address] Dr. Tasha Dodson Sodium [Moles/Vol] 136 mmol/L Normal 136-145 [facility] Comment on above: Performed By: #### T JESI, BMP #### [facility] [address] [place] [address] Dr. Tasha Dodson Urea nitrogen [Mass/Vol] 11.0 mg/dL Normal 7.0-18.0 [facility] Comment on above: Performed By: #### T JESI, BMP #### [facility] [address] [place] [address] Dr. Tasha Dodson Urea nitrogen/Creatinine [Mass ratio] 14.1 mg/mg Normal [facility] Comment on above: Performed By: #### T JESI, BMP #### [facility] [address] [place] [address] Dr. Tasha Dodson TSHon 06-13-2022 TSH 2.583 uIU/mL Normal 0.358-3.740 [facility] Comment on above: Performed By: #### T JESI, BMP #### [facility] [address] [place] [address] Dr. Tasha Dodson UA (CLEAN/CATCH) ACCOUNTS MANAGER/MICRO I F IND.on 06-13-2022 Bilirubin Ql (U) Negative Normal NEGATIVE [facility] Comment on above: Performed By: #### T JESI, BMP #### [facility] [address] [place] [address] Dr. Tasha Dodson Clarity (U) CLEAR Normal CLEAR [facility] Comment on above: Performed By: #### T SH, BMP #### [facility] [address] [place] [address] Dr. Tasha Dodson Color (U) LT. YELLOW Normal YELLOW [facility] Comment on above: Performed By: #### T SH, BMP #### [facility] [address] [place] [address] Dr. Tasha Dodson Glucose Ql (U) Negative Normal NEGATIVE [facility] Comment on above: Performed By: #### T SH, BMP #### [facility] [address] [place] [address] Dr. Tasha Dodson Hemoglobin Ql (U) Negative Normal NEGATIVE [facility] Comment on above: Performed By: #### T SH, BMP #### [facility] [address] [place] [address] Dr. Tasha Dodson Ketones Ql (U) Negative Normal NEGATIVE [facility] Comment on above: Performed By: #### T SH, BMP #### [facility] [address] [place] [address] Dr. Tasha Dodson LEUKOCYTES Negative Normal NEGATIVE [facility] Comment on above: Performed By: #### T SH, BMP #### [facility] [address] [place] [address] Dr. Tasha Dodson Nitrite Ql (U) Negative Normal NEGATIVE [facility] Comment on above: Performed By: #### T SH, BMP #### [facility] [address] [place] [address] Dr. Tasha Dodson pH (U) 7.0 [pH] Normal 5-9 [facility] Comment on above: Performed By: #### T SH, BMP #### [facility] [address] [place] [address] Dr. Tasha Dodson SPEC GRAVITY 1.010 Normal 1.005-<=1.02 5 [facility] Comment on above: Performed By: #### T SH, BMP #### [facility] [address] [place] [address] Dr. Tasha Dodson UA PROTEIN Negative Normal NEGATIVE/ TRACE [facility] Comment on above: Performed By: #### T SH, BMP #### [facility] [address] [address] [address] Tasha Dodson UR MICRO IND NOT INDICATED Normal [facility] Comment on above: Performed By: #### T SH, BMP #### [facility] [address] [place], [place] [address] Dr. Tasha Dodson Urobilinogen Qn (U) 0.2 {Juan'U}/dL Normal 0.2 - 1. 0 [facility] Comment on above: Performed By: #### T JESI, BMP #### [facility] [address] [address] [address] Tasha Dodson ECHOCARDIO M/2D COMPLETEon 0 04-18-2022 ECHOCARDIO M/2D COMPLETE Patient: HIRAM MADRID Exam Date: 04/18/2022 : 1935 Gender:F Ordering : DR VALERIE DARDEN M.D. Admission #: [id number] Family : DR ADDY DANIELS . Order #: [id number] CLICK HERE TO VIEW EXAM ECHOCARDIOGRAM REPORT [...] Barragan M.D. on 04/19/2022 at 18:55 Normal [facility] Office Visiton 04-04-2022 Follow-up visit [id number] Hiram Madrid 1935 F Date Provider Department Center 04/04/2022 Yazmin-VALERIE DARDEN [facility] Family History Problem Relation Age of Onset Hypertension Mother Lupus Mother Coronary artery disease Mother Heart attack Mother Hypertension Father Aneurysm Father Coronary artery disease Father Hypertension Sister Lupus Sister Family Status - Relation Status Age at Mother Father Sister Level of Service:76149 [place] OFFICE/OUTPATIENT ESTABLISHED MOD MDM 30-39 MIN Reason for Visit and Comments: Hyperlipidemia [182] Hypertension [517786] carotid artery stenosis [Other] 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 CBC AUTO DIFFon 01-04-2022 BASO # 0.1 103/ul Normal 0.0-0.1 [facility] Comment on above: Performed By: #### C BC #### [facility] [address] [place] [address] Dr. Tasha Dodson Basophils/100 WBC (Bld) 0.6 % Normal 0.2-2.0 [facility] Comment on above: Performed By: #### C BC #### [facility] [address] [address] [address] Tasha Dodson EO # 0.1 103/ul Normal 0.0-0.7 [facility] Comment on above: Performed By: #### C BC #### [facility] [address] [place] [address] Dr. Tasha Dodson Eosinophils/100 WBC (Bld) 0.9 % Normal 0.9-7.0 [facility] Comment on above: Performed By: #### C BC #### [facility] [address] [place] [address] Dr. Tasha Dodson Erythrocyte distribution width (RBC) [Ratio] 13.0 % Normal 11.0-15.0 [facility] Comment on above: Performed By: #### C BC #### [facility] [address] [place] [address] Dr. Tasha Dodson Hematocrit (Bld) [Volume fraction] 38.5 % Normal 36.0-48.0 [facility] Comment on above: Performed By: #### C BC #### [facility] [address] [place] [address] Dr. Tasha Dodson Hemoglobin (Bld) [Mass/Vol] 13.4 g/dL Normal 12.0-16.0 [facility] Comment on above: Performed By: #### C BC #### [facility] [address] [place] [address] Dr. Tasha Dodson IG # 0.07 10e3/ul Critically high 0.00-0.03 [facility] Comment on above: Performed By: #### C BC #### [facility] [address] [place] [address] Dr. Tasha Dodson IG % 0.5 % Normal 0.0-0.5 [facility] Comment on above: Performed By: #### C BC #### [facility] [address] [place] [address] Dr. Tasha Dodson LYMPH # 2.8 103/ul Normal 1.2-3.8 [facility] Comment on above: Performed By: #### C BC #### [facility] [address] [place] [address] Dr. Tasha Dodson Lymphocytes/100 WBC (Bld) 20.5 % Normal 20.5-60.0 [facility] Comment on above: Performed By: #### C BC #### [facility] [address] [place] [address] Dr. Tasha Dodson MANUAL DIFF REQ NO Normal [facility] Comment on above: Performed By: #### C BC #### [facility] [address] [address] [address] Tasha Dodson MCH (RBC) [Entitic mass] 30.7 pg Normal 26.7-34.0 [facility] Comment on above: Performed By: #### C BC #### [facility] [address] [place] [address] Dr. Tasha Dodson MCHC (RBC) [Mass/Vol] 34.8 g/dL Normal 29.9-35.2 [facility] Comment on above: Performed By: #### C BC #### [facility] [address] [place] [address] Dr. Tasha Dodson MCV (RBC) [Entitic vol] 88.3 fL Normal 81.0-99.0 [facility] Comment on above: Performed By: #### C BC #### [facility] [address] [place] [address] Dr. Tasha Dodson MONO # 1.0 103/ul Critically high 0.3-0.8 [facility] Comment on above: Performed By: #### C BC #### [facility] [address] [place] [address] Dr. Tasha Dodson Monocytes/100 WBC (Bld) 7.4 % Normal 1.7-12.0 [facility] Comment on above: Performed By: #### C BC #### [facility] [address] [place] [address] Dr. Tasha Dodson NEUT # 9.5 103/ul Critically high 1.4-6.5 [facility] Comment on above: Performed By: #### C BC #### [facility] [address] [place] [address] Dr. Tasha Dodson Neutrophils/100 WBC (Bld) 70.1 % Normal 43.0-75.0 [facility] Comment on above: Performed By: #### C BC #### [facility] [address] [place] [address] Dr. Tasha Dodson Platelet mean volume (Bld) [Entitic vol] 8.0 fL Critically low 9.5-13.5 [facility] Comment on above: Performed By: #### C BC #### [facility] [address] [address] [address] Tasha Dodson PLT 492 103/ul Critically high 150-450 [facility] Comment on above: Performed By: #### C BC #### [facility] [address] [address] [address] Tasha Dodson RBC 4.36 106/ul Normal 4.20-5.40 [facility] Comment on above: Performed By: #### C BC #### [facility] [address] [address] [address] Tasha Dodson WBC 13.5 103/ul Critically high 4.0-11.0 [facility] Comment on above: Performed By: #### C BC #### [facility] [address] [place] [address] Dr. Tasha Dodson PROF 14(COMP METB)on 01-04- 022 Albumin [Mass/Vol] 3.8 g/dL Normal 3.4-5.0 [facility] Comment on above: Performed By: #### T SH, BMP #### [facility] [address] [place] [address] Dr. Tasha Dodson Albumin/Globulin [Mass ratio] 0.9 {ratio} Normal [facility] Comment on above: Performed By: #### T SH, BMP #### [facility] [address] [place] [address] Dr. Tasha Dodson ALP [Catalytic activity/Vol] 60 U/L Normal 46-116 [facility] Comment on above: Performed By: #### T SH, BMP #### [facility] [address] [place] [address] Dr. Tasha Dodson ALT [Catalytic activity/Vol] 26 U/L Normal 14-59 [facility] Comment on above: Performed By: #### T SH, BMP #### [facility] Laboratory [address] [place] [address] Dr. Tasha Dodson Anion gap [Moles/Vol] 8.4 mmol/L Normal [facility] Comment on above: Performed By: #### T SH, BMP #### [facility] [address] [place] [address] Dr. Tasha oDdson AST [Catalytic activity/Vol] 19 U/L Normal 15-37 [facility] Comment on above: Performed By: #### T SH, BMP #### [facility] [address] [place] [address] Dr. Tasha Dodson Bilirubin [Mass/Vol] 0.4 mg/dL Normal 0.2-1.0 [facility] Comment on above: Performed By: #### T SH, BMP #### [facility] [address] [place] [address] Dr. Tasha Dodson Calcium [Mass/Vol] 10.1 mg/dL Normal 8.5-10.1 [facility] Comment on above: Performed By: #### T SH, BMP #### [facility] [address] [place] [address] Dr. Tasha Dodson Chloride [Moles/Vol] 92 mmol/L Critically low 98-107 [facility] Comment on above: Performed By: #### T SH, BMP #### [facility] [address] [place] [address] Dr. Tasha Dodson CO2 [Moles/Vol] 33.8 mmol/L Critically high 21.0-32.0 [facility] Comment on above: Performed By: #### T SH, BMP #### [facility] [address] [place] [address] Dr. Tasha Dodson Creatinine [Mass/Vol] 0.67 mg/dL Normal 0.55-1.02 [facility] Comment on above: Performed By: #### T SH, BMP #### [facility] [address] [place] [address] Dr. Tasha Dodson EGFR-AF GUYANESE >60 Normal >=60 [facility] Comment on above: Performed By: #### T SH, BMP #### [facility] [address] [place] [address] Dr. Tasha Dodson EGFR-NON AF GUYANESE >60 Normal >=60 [facility] Comment on above: Performed By: #### T SH, BMP #### [facility] [address] [place], [place] [id number] Dr. Tasha Dodson Globulin (S) [Mass/Vol] 4.1 g/dL Normal [facility] Comment on above: Performed By: #### T SH, BMP #### [facility] [address] [place] [address] Dr. Tasha Dodson Glucose [Mass/Vol] 106 mg/dL Normal 74-106 [facility] Comment on above: Performed By: #### T SH, BMP #### [facility] [address] [place] [address] Dr. Tasha Dodson Potassium [Moles/Vol] 3.2 mmol/L Critically low 3.5-5.1 [facility] Comment on above: Performed By: #### T SH, BMP #### [facility] [address] [place] [address] Dr. Tasha Dodson Protein [Mass/Vol] 7.9 g/dL Normal 6.4-8.2 [facility] Comment on above: Performed By: #### T SH, BMP #### [facility] [address] [place] [address] Dr. Tasha Dodson Sodium [Moles/Vol] 131 mmol/L Critically low 136-145 [facility] Comment on above: Performed By: #### T SH, BMP #### [facility] [address] [place] [address] Dr. Tasha Dodson Urea nitrogen [Mass/Vol] 10.0 mg/dL Normal 7.0-18.0 [facility] Comment on above: Performed By: #### T SH, BMP #### [facility] [address] [place] [address] Dr. Tasha Dodson Urea nitrogen/Creatinine [Mass ratio] 14.9 mg/mg Normal [facility] Comment on above: Performed By: #### T SH, BMP #### [facility] [address] [place] [address] Dr. Tasha Dodson CBC AUTO DIFFon 12-29-2021 BASO # 0.1 103/ul Normal 0.0-0.1 [facility] Comment on above: Performed By: #### C BC #### [facility] [address] [place] [address] Dr. Tasha Dodson Basophils/100 WBC (Bld) 0.5 % Normal 0.2-2.0 [facility] Comment on above: Performed By: #### C BC #### [facility] [address] [place] [address] Dr. Tasha Dodson EO # 0.1 103/ul Normal 0.0-0.7 [facility] Comment on above: Performed By: #### C BC #### [facility] [address] [place] [address] Dr. Tasha Dodson Eosinophils/100 WBC (Bld) 0.4 % Critically low 0.9-7.0 [facility] Comment on above: Performed By: #### C BC #### [facility] [address] [place] [address] Dr. Tasha Dodson Erythrocyte distribution width (RBC) [Ratio] 13.0 % Normal 11.0-15.0 [facility] Comment on above: Performed By: #### C BC #### [facility] [address] [place] [address] Dr. Tasha Dodson Hematocrit (Bld) [Volume fraction] 34.0 % Critically low 36.0-48.0 [facility] Comment on above: Performed By: #### C BC #### [facility] [address] [place] [address] Dr. Tasha Dodson Hemoglobin (Bld) [Mass/Vol] 12.0 g/dL Normal 12.0-16.0 [facility] Comment on above: Performed By: #### C BC #### [facility] [address] [place] [address] Dr. Tasha Dodson IG # 0.06 10e3/ul Critically high 0.00-0.03 [facility] Comment on above: Performed By: #### C BC #### [facility] [address] [place] [address] Dr. Tasha Dodson IG % 0.4 % Normal 0.0-0.5 [facility] Comment on above: Performed By: #### C BC #### [facility] [address] [address] [address] Tasha Dodson LYMPH # 2.5 103/ul Normal 1.2-3.8 [facility] Comment on above: Performed By: #### C BC #### [facility] [address] [address] [address] Tasha Dodson Lymphocytes/100 WBC (Bld) 17.4 % Critically low 20.5-60.0 [facility] Comment on above: Performed By: #### C BC #### [facility] [address] [address] [address] Tasha Dodson MANUAL DIFF REQ NO Normal [facility] Comment on above: Performed By: #### C BC #### [facility] [address] [place] [address] Dr. Tasha Dodson MCH (RBC) [Entitic mass] 31.0 pg Normal 26.7-34.0 [facility] Comment on above: Performed By: #### C BC #### [facility] [address] [place] [address] Dr. Tasha Dodson MCHC (RBC) [Mass/Vol] 35.3 g/dL Critically high 29.9-35.2 [facility] Comment on above: Performed By: #### C BC #### [facility] [address] [place] [address] Dr. Tasha Dodson MCV (RBC) [Entitic vol] 87.9 fL Normal 81.0-99.0 [facility] Comment on above: Performed By: #### C BC #### [facility] [address] [place] [address] Dr. Tasha Dodson MONO # 1.0 103/ul Critically high 0.3-0.8 [facility] Comment on above: Performed By: #### C BC #### [facility] [address] [place] [address] Dr. Tasha Dodson Monocytes/100 WBC (Bld) 6.9 % Normal 1.7-12.0 [facility] Comment on above: Performed By: #### C BC #### [facility] [address] [address] [address] Tasha Dodson NEUT # 10.8 103/ul Critically high 1.4-6.5 [facility] Comment on above: Performed By: #### C BC #### [facility] [id number] [address] Tasha Dodson Neutrophils/100 WBC (Bld) 74.4 % Normal 43.0-75.0 [facility] Comment on above: Performed By: #### C BC #### [facility] [address] [address] [address] Tasha Dodson Platelet mean volume (Bld) [Entitic vol] 8.4 fL Critically low 9.5-13.5 [facility] Comment on above: Performed By: #### C BC #### [facility] [address] [place] [address] Dr. Tasha Dodson PLT 370 103/ul Normal 150-450 [facility] Comment on above: Performed By: #### C BC #### [facility] [address] [place] [address] Dr. Tasha Dodson RBC 3.87 106/ul Critically low 4.20-5.40 [facility] Comment on above: Performed By: #### C BC #### [facility] [address] [place] [address] Dr. Tasha Dodson WBC 14.5 103/ul Critically high 4.0-11.0 [facility] Comment on above: Performed By: #### C BC #### [facility] [address] [place] [address] Dr. Tasha Dodson PROF 14(COMP METB)on 022 Albumin [Mass/Vol] 2.8 g/dL Critically low 3.4-5.0 [facility] Comment on above: Performed By: #### T JESI, BMP #### [facility] [address] [place] [address] Dr. Tasha Dodson Albumin/Globulin [Mass ratio] 0.9 {ratio} Normal [facility] Comment on above: Performed By: #### T JESI, BMP #### [facility] [address] [address] [address] Tasha Dodson ALP [Catalytic activity/Vol] 51 U/L Normal 46-116 [facility] Comment on above: Performed By: #### T SH, BMP #### [facility] [address] [address] [address] Tasha Dodson ALT [Catalytic activity/Vol] 15 U/L Normal 14-59 [facility] Comment on above: Performed By: #### T SH, BMP #### [facility] [address] [address] [address] Tasha Dodson Anion gap [Moles/Vol] 9.7 mmol/L Normal [facility] Comment on above: Performed By: #### T SH, BMP #### [facility] [address] [address] [address] Tasha Dodson AST [Catalytic activity/Vol] 15 U/L Normal 15-37 [facility] Comment on above: Performed By: #### T JESI, BMP #### [facility] [address] [address] [address] Tasha Dodson Bilirubin [Mass/Vol] 0.4 mg/dL Normal 0.2-1.0 [facility] Comment on above: Performed By: #### T JESI, BMP #### [facility] [address] [address] [address] Tasha Dodson Calcium [Mass/Vol] 8.6 mg/dL Normal 8.5-10.1 [facility] Comment on above: Performed By: #### T SH, BMP #### [facility] [address] [address] [address] Tasha Dodson Chloride [Moles/Vol] 97 mmol/L Critically low 98-107 [facility] Comment on above: Performed By: #### T SH, BMP #### [facility] [address] [address] [address] Tasha Dodson CO2 [Moles/Vol] 25.8 mmol/L Normal 21.0-32.0 [facility] Comment on above: Performed By: #### T SH, BMP #### [facility] [address] [address] [address] Tasha Dodson Creatinine [Mass/Vol] 0.52 mg/dL Critically low 0.55-1.02 [facility] Comment on above: Performed By: #### T SH, BMP #### [facility] [address] [address] [address] Tasha Dodson EGFR-AF GUYANESE >60 Normal >=60 [facility] Comment on above: Performed By: #### T SH, BMP #### [facility] [address] [place] [address] Dr. Tasha Dodson EGFR-NON AF GUYANESE >60 Normal >=60 [facility] Comment on above: Performed By: #### T SH, BMP #### [facility] [address] [place] [address] Dr. Tasha Dodson Globulin (S) [Mass/Vol] 3.2 g/dL Normal [facility] Comment on above: Performed By: #### T SH, BMP #### [facility] [address] [place] [address] Dr. Tasha Dodson Glucose [Mass/Vol] 117 mg/dL Critically high 74-106 [facility] Comment on above: Performed By: #### T SH, BMP #### [facility] [address] [place] [address] Dr. Tasha Dodson Potassium [Moles/Vol] 3.5 mmol/L Normal 3.5-5.1 [facility] Comment on above: Performed By: #### T SH, BMP #### [facility] [address] [place] [address] Dr. Tasha Dodson Protein [Mass/Vol] 6.0 g/dL Critically low 6.4-8.2 [facility] Comment on above: Performed By: #### T SH, BMP #### [facility] [address] [place] [address] Dr. Tasha Dodson Sodium [Moles/Vol] 129 mmol/L Critically low 136-145 [facility] Comment on above: Performed By: #### T SH, BMP #### [facility] [address] [place] [address] Dr. Tasha Dodson Urea nitrogen [Mass/Vol] 4.0 mg/dL Critically low 7.0-18. 0 [facility] Comment on above: Performed By: #### T SH, BMP #### [facility] [address] [place] [address] Dr. Tasha Dodson Urea nitrogen/Creatinine [Mass ratio] 7.7 mg/mg Normal [facility] Comment on above: Performed By: #### T SH, BMP #### [facility] [address] [place] [address] Dr. Tasha Dodson CBC AUTO DIFFon 12-28-2021 BASO # 0.1 103/ul Normal 0.0-0.1 [facility] Comment on above: Performed By: #### C BC #### [facility] [address] [place] [address] Dr. Tasha Dodson Basophils/100 WBC (Bld) 0.4 % Normal 0.2-2.0 [facility] Comment on above: Performed By: #### C BC #### [facility] [address] [place] [address] Dr. Tasha Dodson EO # 0.1 103/ul Normal 0.0-0.7 [facility] Comment on above: Performed By: #### C BC #### [facility] [address] [place] [address] Dr. Tasha Dodson Eosinophils/100 WBC (Bld) 0.4 % Critically low 0.9-7.0 [facility] Comment on above: Performed By: #### C BC #### [facility] [address] [place] [address] Dr. Tasha Dodson Erythrocyte distribution width (RBC) [Ratio] 12.9 % Normal 11.0-15.0 [facility] Comment on above: Performed By: #### C BC #### [facility] [address] [place] [address] Dr. Tasha Dodson Hematocrit (Bld) [Volume fraction] 34.2 % Critically low 36.0-48.0 [facility] Comment on above: Performed By: #### C BC #### [facility] [address] [address] [address] Tasha Dodson Hemoglobin (Bld) [Mass/Vol] 12.4 g/dL Normal 12.0-16.0 [facility] Comment on above: Performed By: #### C BC #### [facility] [address] [address] [address] Tasha Dodson IG # 0.09 10e3/ul Critically high 0.00-0.03 [facility] Comment on above: Performed By: #### C BC #### [facility] [address] [address] [address] Tasha Dodson IG % 0.6 % Critically high 0.0-0.5 [facility] Comment on above: Performed By: #### C BC #### [facility] [address] [place] [address] Dr. Tasha Dodson LYMPH # 2.2 103/ul Normal 1.2-3.8 [facility] Comment on above: Performed By: #### C BC #### [facility] [address] [place] [address] Dr. Tasha Dodson Lymphocytes/100 WBC (Bld) 13.6 % Critically low 20.5-60.0 [facility] Comment on above: Performed By: #### C BC #### [facility] [address] [place] [address] Dr. Tasha Dodson MANUAL DIFF REQ NO Normal [facility] Comment on above: Performed By: #### C BC #### [facility] [address] [address] [address] Tasha Dodson MCH (RBC) [Entitic mass] 31.2 pg Normal 26.7-34.0 [facility] Comment on above: Performed By: #### C BC #### [facility] [address] [place] [address] Dr. Tasha Dodson MCHC (RBC) [Mass/Vol] 36.3 g/dL Critically high 29.9-35.2 [facility] Comment on above: Performed By: #### C BC #### [facility] [address] [address] [address] Tasha Dodson MCV (RBC) [Entitic vol] 85.9 fL Normal 81.0-99.0 [facility] Comment on above: Performed By: #### C BC #### [facility] [address] [address] [address] Tasha Dodson MONO # 1.3 103/ul Critically high 0.3-0.8 [facility] Comment on above: Performed By: #### C BC #### [facility] [address] [place] [address] Dr. Tasha Dodson Monocytes/100 WBC (Bld) 7.8 % Normal 1.7-12.0 [facility] Comment on above: Performed By: #### C BC #### [facility] [address] [place] [address] Dr. Tasha Dodson NEUT # 12.4 103/ul Critically high 1.4-6.5 [facility] Comment on above: Performed By: #### C BC #### [facility] [address] [place] [address] Dr. Tasha Dodson Neutrophils/100 WBC (Bld) 77.2 % Critically high 43.0-75.0 [facility] Comment on above: Performed By: #### C BC #### [facility] [address] [place] [address] Dr. Tasha Dodson Platelet mean volume (Bld) [Entitic vol] 8.6 fL Critically low 9.5-13.5 [facility] Comment on above: Performed By: #### C BC #### [facility] [address] [place] [address] Dr. Tasha Dodson PLT 385 103/ul Normal 150-450 [facility] Comment on above: Performed By: #### C BC #### [facility] [address] [place] [address] Dr. Tasha Dodson RBC 3.98 106/ul Critically low 4.20-5.40 [facility] Comment on above: Performed By: #### C BC #### [facility] [address] [place] [address] Dr. Tasha Dodson WBC 16.1 103/ul Critically high 4.0-11.0 [facility] Comment on above: Performed By: #### C BC #### [facility] [address] [place] [address] Dr. Tasha Dodson PROF 14(COMP METB)on 022 Albumin [Mass/Vol] 3.2 g/dL Critically low 3.4-5.0 [facility] Comment on above: Performed By: #### T SH, BMP #### [facility] [address] [place] [address] Dr. Tasha Dodson Albumin/Globulin [Mass ratio] 1.0 {ratio} Normal [facility] Comment on above: Performed By: #### T SH, BMP #### [facility] [address] [place] [address] Dr. Tasha Dodson ALP [Catalytic activity/Vol] 51 U/L Normal 46-116 [facility] Comment on above: Performed By: #### T SH, BMP #### [facility] [address] [place] [address] Dr. Tasha Dodson ALT [Catalytic activity/Vol] 17 U/L Normal 14-59 [facility] Comment on above: Performed By: #### T SH, BMP #### [facility] [address] [place] [address] Dr. Tasha Dodson Anion gap [Moles/Vol] 10.5 mmol/L Normal [facility] Comment on above: Performed By: #### T SH, BMP #### [facility] [address] [place] [address] Dr. Tasha Dodson AST [Catalytic activity/Vol] 18 U/L Normal 15-37 [facility] Comment on above: Performed By: #### T SH, BMP #### [facility] [address] [place] [address] Dr. Tasha Dodson Bilirubin [Mass/Vol] 0.4 mg/dL Normal 0.2-1.0 [facility] Comment on above: Performed By: #### T SH, BMP #### [facility] [address] [place] [address] Dr. Tasha Dodson Calcium [Mass/Vol] 8.3 mg/dL Critically low 8.5-10.1 [facility] Comment on above: Performed By: #### T SH, BMP #### [facility] [address] [place] [address] Dr. Tasha Dodson Chloride [Moles/Vol] 96 mmol/L Critically low 98-107 [facility] Comment on above: Performed By: #### T SH, BMP #### [facility] [address] [place] [address] Dr. Tasha Dodson CO2 [Moles/Vol] 24.5 mmol/L Normal 21.0-32.0 [facility] Comment on above: Performed By: #### T SH, BMP #### [facility] [address] [place] [address] Dr. Tasha Dodson Creatinine [Mass/Vol] 0.54 mg/dL Critically low 0.55-1.02 [facility] Comment on above: Performed By: #### T SH, BMP #### [facility] [address] [place] [address] Dr. Tasha Dodson EGFR-AF GUYANESE >60 Normal >=60 [facility] Comment on above: Performed By: #### T SH, BMP #### [facility] [address] [place] [address] Dr. Tasha Dodson EGFR-NON AF GUYANESE >60 Normal >=60 [facility] Comment on above: Performed By: #### T SH, BMP #### [facility] [address] [place] [address] Dr. Tasha Dodson Globulin (S) [Mass/Vol] 3.1 g/dL Normal [facility] Comment on above: Performed By: #### T SH, BMP #### [facility] [address] [place] [address] Dr. Tasha Dodson Glucose [Mass/Vol] 123 mg/dL Critically high 74-106 [facility] Comment on above: Performed By: #### T SH, BMP #### [facility] [address] [place] [address] Dr. Tasha Dodson Potassium [Moles/Vol] 3.0 mmol/L Critically low 3.5-5.1 [facility] Comment on above: Performed By: #### T JESI, BMP #### [facility] [address] [place] [address] Dr. Tasha Dodson Protein [Mass/Vol] 6.3 g/dL Critically low 6.4-8.2 [facility] Comment on above: Performed By: #### T SH, BMP #### [facility] [address] [place] [address] Dr. Tasha Dodson Sodium [Moles/Vol] 128 mmol/L Critically low 136-145 [facility] Comment on above: Performed By: #### T JESI, BMP #### [facility] [address] [place] [address] Dr. Tasha Dodson Urea nitrogen [Mass/Vol] 5.0 mg/dL Critically low 7.0-18. 0 [facility] Comment on above: Performed By: #### T JESI, BMP #### [facility] [address] [place] [address] Dr. Tasha Dodson Urea nitrogen/Creatinine [Mass ratio] 9.3 mg/mg Normal [facility] Comment on above: Performed By: #### T JESI, BMP #### [facility] [address] [place] [address] Dr. Tasha Dodson SODIUM RANDOM URINEon 2021 Sodium (U) [Moles/Vol] 135 mmol/L Critically high 30-90 [facility] Comment on above: Performed By: #### C BC #### [facility] [address] [place] [address] Dr. Tasha Dodson CBC AUTO DIFFon 12-27-2021 BASO # 0.0 103/ul Normal 0.0-0.1 [facility] Comment on above: Performed By: #### C BC #### [facility] [address] [place] [address] Dr. Tasha Dodson Basophils/100 WBC (Bld) 0.2 % Normal 0.2-2.0 [facility] Comment on above: Performed By: #### C BC #### [facility] [address] [address] [address] Tasha Dodson EO # 0.3 103/ul Normal 0.0-0.7 [facility] Comment on above: Performed By: #### C BC #### [facility] [address] [place] [address] Dr. Tasha Dodson Eosinophils/100 WBC (Bld) 2.3 % Normal 0.9-7.0 [facility] Comment on above: Performed By: #### C BC #### [facility] [address] [place] [address] Dr. Tasha Dodson Erythrocyte distribution width (RBC) [Ratio] 12.4 % Normal 11.0-15.0 [facility] Comment on above: Performed By: #### C BC #### [facility] [address] [place] [address] Dr. Tasha Dodson Hematocrit (Bld) [Volume fraction] 35.4 % Critically low 36.0-48.0 [facility] Comment on above: Performed By: #### C BC #### [facility] [address] [place] [address] Dr. Tasha Dodson Hemoglobin (Bld) [Mass/Vol] 12.9 g/dL Normal 12.0-16.0 [facility] Comment on above: Performed By: #### C BC #### [facility] [address] [place] [address] Dr. Tasha Dodson IG # 0.06 10e3/ul Critically high 0.00-0.03 [facility] Comment on above: Performed By: #### C BC #### [facility] [address] [place] [address] Dr. Tasha Dodson IG % 0.5 % Normal 0.0-0.5 [facility] Comment on above: Performed By: #### C BC #### [facility] [address] [place] [address] Dr. Tasha Dodson LYMPH # 2.0 103/ul Normal 1.2-3.8 [facility] Comment on above: Performed By: #### C BC #### [facility] [address] [address] [address] Tasha Dodson Lymphocytes/100 WBC (Bld) 15.7 % Critically low 20.5-60.0 [facility] Comment on above: Performed By: #### C BC #### [facility] [address] [place] [address] Dr. Tasha Dodson MANUAL DIFF REQ NO Normal [facility] Comment on above: Performed By: #### C BC #### [facility] [address] [place] [address] Dr. Tasha Dodson MCH (RBC) [Entitic mass] 31.0 pg Normal 26.7-34.0 [facility] Comment on above: Performed By: #### C BC #### [facility] [address] [place] [address] Dr. Tasha Dodson MCHC (RBC) [Mass/Vol] 36.4 g/dL Critically high 29.9-35.2 [facility] Comment on above: Performed By: #### C BC #### [facility] [address] [place] [address] Dr. Tasha Dodson MCV (RBC) [Entitic vol] 85.1 fL Normal 81.0-99.0 [facility] Comment on above: Performed By: #### C BC #### [facility] [address] [place] [address] Dr. Tasha Dodson MONO # 1.1 103/ul Critically high 0.3-0.8 [facility] Comment on above: Performed By: #### C BC #### [facility] [address] [place] [address] Dr. Tasha Dodson Monocytes/100 WBC (Bld) 8.3 % Normal 1.7-12.0 [facility] Comment on above: Performed By: #### C BC #### [facility] [address] [place] [address] Dr. Tasha Dodson NEUT # 9.5 103/ul Critically high 1.4-6.5 [facility] Comment on above: Performed By: #### C BC #### [facility] [address] [address] [address] Tasha Dodson Neutrophils/100 WBC (Bld) 73.0 % Normal 43.0-75.0 [facility] Comment on above: Performed By: #### C BC #### [facility] [address] [address] [address] Tasha Dodson Platelet mean volume (Bld) [Entitic vol] 8.3 fL Critically low 9.5-13.5 [facility] Comment on above: Performed By: #### C BC #### [facility] [address] [address] [address] Tasha Dodson PLT 408 103/ul Normal 150-450 [facility] Comment on above: Performed By: #### C BC #### [facility] [address] [place] [address] Dr. Tasha Dodson RBC 4.16 106/ul Critically low 4.20-5.40 [facility] Comment on above: Performed By: #### C BC #### [facility] [address] [address] [address] Tasha Dodson WBC 13.0 103/ul Critically high 4.0-11.0 [facility] Comment on above: Performed By: #### C BC #### [facility] [address] [address] [address] Tasha Dodson CULTURE SPUTUMon 12-27-2021 CULTURE SPUTUM Culture Observations: NORMAL RESPIRATORY AMADOU. Normal [facility] Comment on above: Performed By: #### C BC #### [facility] [address] [address] [address] Tasha Dodson PROF 14(COMP METB)on 022 Albumin [Mass/Vol] 3.4 g/dL Normal 3.4-5.0 [facility] Comment on above: Performed By: #### C MADM, LIPA, BNP, CMP #### [facility] [address] [address] [address] Tasha Dodson Albumin/Globulin [Mass ratio] 1.0 {ratio} Normal [facility] Comment on above: Performed By: #### C MADM, LIPA, BNP, CMP #### [facility] [address] [place] [address] Dr. Tasha Dodson ALP [Catalytic activity/Vol] 54 U/L Normal 46-116 [facility] Comment on above: Performed By: #### C MADM, LIPA, BNP, CMP #### [facility] [address] [place] [address] Dr. Tasha Dodson ALT [Catalytic activity/Vol] 20 U/L Normal 14-59 [facility] Comment on above: Performed By: #### C MADM, LIPA, BNP, CMP #### [facility] [address] [place] [address] Dr. Tasha Dodson Anion gap [Moles/Vol] 10.8 mmol/L Normal [facility] Comment on above: Performed By: #### C MADM, LIPA, BNP, CMP #### [facility] [address] [place] [address] Dr. Tasha Dodson AST [Catalytic activity/Vol] 19 U/L Normal 15-37 [facility] Comment on above: Performed By: #### C MADM, LIPA, BNP, CMP #### [facility] [address] [place] [address] Dr. Tasha Dodson Bilirubin [Mass/Vol] 0.5 mg/dL Normal 0.2-1.0 [facility] Comment on above: Performed By: #### C MADM, LIPA, BNP, CMP #### [facility] [address] [place] [address] Dr. Tasha Dodson Calcium [Mass/Vol] 8.3 mg/dL Critically low 8.5-10.1 [facility] Comment on above: Performed By: #### C MADM, LIPA, BNP, CMP #### [facility] [address] [place] [address] Dr. Tasha Dodson Chloride [Moles/Vol] 89 mmol/L Critically low 98-107 [facility] Comment on above: Performed By: #### C MADM, LIPA, BNP, CMP #### [facility] [address] [address] [address] Tahsa Dodson CO2 [Moles/Vol] 27.0 mmol/L Normal 21.0-32.0 [facility] Comment on above: Performed By: #### C MADM, LIPA, BNP, CMP #### [facility] [address] [address] [address] Tasha Dodson Creatinine [Mass/Vol] 0.69 mg/dL Normal 0.55-1.02 [facility] Comment on above: Performed By: #### C MADM, LIPA, BNP, CMP #### [facility] [address] [address] [address] Tasha Dodson EGFR-AF GUYANESE >60 Normal >=60 [facility] Comment on above: Performed By: #### C MADM, LIPA, BNP, CMP #### [facility] [address] [address] [address] Tasha Dodson EGFR-NON AF GUYANESE >60 Normal >=60 [facility] Comment on above: Performed By: #### C MADM, LIPA, BNP, CMP #### [facility] [address] [address] [address] Tasha Dodson Globulin (S) [Mass/Vol] 3.3 g/dL Normal [facility] Comment on above: Performed By: #### C MADM, LIPA, BNP, CMP #### [facility] [address] [address] [address] Tasha Dodson Glucose [Mass/Vol] 115 mg/dL Critically high 74-106 [facility] Comment on above: Performed By: #### C MADM, LIPA, BNP, CMP #### [facility] [address] [address] [address] Tasha Dodson Potassium [Moles/Vol] 2.7 mmol/L Critically low 3.5-5.1 [facility] Comment on above: Result Comment: Test Repeated. Critical Value Verified Performed By: #### C MADM, LIPA, BNP, CMP #### [facility] [address] [place] [address] Dr. Tasha Dodson Protein [Mass/Vol] 6.7 g/dL Normal 6.4-8.2 [facility] Comment on above: Performed By: #### C MADM, LIPA, BNP, CMP #### [facility] [address] [address] [address] Tasha Dodson Sodium [Moles/Vol] 123 mmol/L Critically low 136-145 [facility] Comment on above: Result Comment: Test Repeated. Critical Value Verified Performed By: #### C MADM, LIPA, BNP, CMP #### [facility] [address] [address] [address] Tasha Dodson Urea nitrogen [Mass/Vol] 6.0 mg/dL Critically low 7.0-18. 0 [facility] Comment on above: Performed By: #### C MADM, LIPA, BNP, CMP #### [facility] [address] [place] [address] Dr. Tasha Dodson Urea nitrogen/Creatinine [Mass ratio] 8.7 mg/mg Normal [facility] Comment on above: Performed By: #### C MADM, LIPA, BNP, CMP #### [facility] [address] [address] [address] Tasha Dodson SPUTUM GRAM STAINon 12-28-19 COMMENTS Normal [facility] Comment on above: Performed By: #### T SH, BMP #### [facility] [address] [place] [address] Dr. Tasha Dodson DIPHTHEROIDS Normal [facility] Comment on above: Performed By: #### T SH, BMP #### [facility] [address] [place] [address] Dr. Tasha Dodson EPITHELIALS <25 Normal [facility] Comment on above: Performed By: #### T SH, BMP #### [facility] [address] [place] [address] Dr. Tasha Dodson FUNGAL ELEMENTS Normal [facility] Comment on above: Performed By: #### T SH, BMP #### [facility] [address] [place] [address] Dr. Tasha Dodson GRAM NEG BACILLI Normal [facility] Comment on above: Performed By: #### T SH, BMP #### [facility] [address] [address] [address] Tasha Dodson GRAM NEG DIPPLOCOCCI Normal [facility] Comment on above: Performed By: #### T SH, BMP #### [facility] [address] [address] [address] Tasha Dodson GRAM POS BACILLI Normal [facility] Comment on above: Performed By: #### T SH, BMP #### [facility] [address] [address] [address] Tasah Dodson GRAM POSITIVE COCCI MODERATE Normal [facility] Comment on above: Performed By: #### T SH, BMP #### [facility] [address] [place] [address] Dr. Tasha Dodson WBC (Bld) [#/Vol] 10*3/uL Normal [facility] Comment on above: Performed By: #### T SH, BMP #### [facility] [address] [place] [address] Dr. Tasha Dodson BNPon 12-26-2021 Natriuretic peptide B (Bld) [Mass/Vol] 148.0 pg/mL Normal <=1,800.0 [facility] Comment on above: Performed By: #### C MADM, LIPA, BNP, CMP #### [facility] [address] [place] [address] Dr. Tasha Dodson CARDIAC ANGELO ADMITon 022 CK [Catalytic activity/Vol] 139 U/L Normal 26-192 [facility] Comment on above: Performed By: #### C MADM, LIPA, BNP, CMP #### [facility] [address] [place] [address] Dr. Tasha Dodson CK.MB [Mass/Vol] 2.43 ng/mL Normal <=3.60 [facility] Comment on above: Performed By: #### C MADM, LIPA, BNP, CMP #### [facility] [address] [place] [address] Dr. Tasha Dodson HSTROP 12.2 pg/mL Normal 4.0-51.3 [facility] Comment on above: Result Comment: CUT- OFF POINTS HAVE BEEN ESTABLISHED BASED ON THE FOURTH UNIVERSAL DEFINITIONS OF MYOCARDIAL INFARCTION. THE UPPER REFERENCE LIMIT (URL) OF TROPONIN, DEFINED THE 99TH PERCENTILE OF cTnI DISTRIBUTION IN A REFERENCE POPULATION, HAS BEEN CONFIRMED THE DECISION THRESHOLD FOR WI DIAGNOSIS. Performed By: #### C MADM, LIPA, BNP, CMP #### [facility] [address] [place] [address] Dr. Tasha Dodson ELIZABETH 110 ng/mL Critically high 9-82 [facility] Comment on above: Performed By: #### C MADM, LIPA, BNP, CMP #### [facility] [address] [place] [address] Dr. Tasha Dodson CBC AUTO DIFFon 12-26-2021 BASO # 0.0 103/ul Normal 0.0-0.1 [facility] Comment on above: Performed By: #### C MADM, LIPA, BNP, CMP #### [facility] [address] [place] [address] Dr. Tasha Dodson Basophils/100 WBC (Bld) 0.3 % Normal 0.2-2.0 [facility] Comment on above: Performed By: #### C MADM, LIPA, BNP, CMP #### [facility] [address] [place] [address] Dr. Tasha Dodson EO # 0.1 103/ul Normal 0.0-0.7 [facility] Comment on above: Performed By: #### C MADM, LIPA, BNP, CMP #### [facility] [address] [place] [address] Dr. Tasha Dodson Eosinophils/100 WBC (Bld) 0.7 % Critically low 0.9-7.0 [facility] Comment on above: Performed By: #### C MADM, LIPA, BNP, CMP #### [facility] [address] [place] [address] Dr. Tasha Dodson Erythrocyte distribution width (RBC) [Ratio] 12.4 % Normal 11.0-15.0 [facility] Comment on above: Performed By: #### C MADM, LIPA, BNP, CMP #### [facility] [address] [place] [address] Dr. Tasha Dodson Hematocrit (Bld) [Volume fraction] 38.9 % Normal 36.0-48.0 [facility] Comment on above: Performed By: #### C MADM, LIPA, BNP, CMP #### [facility] [address] [place] [address] Dr. Tasha Dodson Hemoglobin (Bld) [Mass/Vol] 14.4 g/dL Normal 12.0-16.0 [facility] Comment on above: Performed By: #### C MADM, LIPA, BNP, CMP #### [facility] [address] [place] [address] Dr. Tasha Dodson IG # 0.08 10e3/ul Critically high 0.00-0.03 [facility] Comment on above: Performed By: #### C MADM, LIPA, BNP, CMP #### [facility] [address] [place] [address] Dr. Tasha Dodson IG % 0.5 % Normal 0.0-0.5 [facility] Comment on above: Performed By: #### C MADM, LIPA, BNP, CMP #### [facility] [address] [place] [address] Dr. Tasha Dodson LYMPH # 2.2 103/ul Normal 1.2-3.8 [facility] Comment on above: Performed By: #### C MADM, LIPA, BNP, CMP #### [facility] [address] [place] [address] Dr. Tasha Dodson Lymphocytes/100 WBC (Bld) 15.0 % Critically low 20.5-60.0 [facility] Comment on above: Performed By: #### C MADM, LIPA, BNP, CMP #### [facility] [address] [place] [address] Dr. Tasha Dodson MANUAL DIFF REQ NO Normal [facility] Comment on above: Performed By: #### C MADM, LIPA, BNP, CMP #### [facility] [address] [place] [address] Dr. Tasha Dodson MCH (RBC) [Entitic mass] 31.6 pg Normal 26.7-34.0 [facility] Comment on above: Performed By: #### C MADM, LIPA, BNP, CMP #### [facility] [address] [place] [address] Dr. Tasha Dodson MCHC (RBC) [Mass/Vol] 37.0 g/dL Critically high 29.9-35.2 [facility] Comment on above: Performed By: #### C MADM, LIPA, BNP, CMP #### [facility] [address] [place] [address] Dr. Tasha Dodson MCV (RBC) [Entitic vol] 85.3 fL Normal 81.0-99.0 [facility] Comment on above: Performed By: #### C MADM, LIPA, BNP, CMP #### [facility] [address] [place] [address] Dr. Tasha Dodson MONO # 1.0 103/ul Critically high 0.3-0.8 [facility] Comment on above: Performed By: #### C MADM, LIPA, BNP, CMP #### [facility] [address] [place] [address] Dr. Tasha Dodson Monocytes/100 WBC (Bld) 6.8 % Normal 1.7-12.0 [facility] Comment on above: Performed By: #### C MADM, LIPA, BNP, CMP #### [facility] [address] [place] [address] Dr. Tasha Dodson NEUT # 11.5 103/ul Critically high 1.4-6.5 [facility] Comment on above: Performed By: #### C MADM, LIPA, BNP, CMP #### [facility] [address] [place] [address] Dr. Tasha Dodson Neutrophils/100 WBC (Bld) 76.7 % Critically high 43.0-75.0 [facility] Comment on above: Performed By: #### C MADM, LIPA, BNP, CMP #### [facility] [address] [place] [address] Dr. Tasha Dodson Platelet mean volume (Bld) [Entitic vol] 8.6 fL Critically low 9.5-13.5 [facility] Comment on above: Performed By: #### C MADM, LIPA, BNP, CMP #### [facility] [address] [address] [address] Tasha Dodson PLT 491 103/ul Critically high 150-450 [facility] Comment on above: Performed By: #### C MADM, LIPA, BNP, CMP #### [facility] [address] [place] [address] Dr. Tasha Dodson RBC 4.56 106/ul Normal 4.20-5.40 [facility] Comment on above: Performed By: #### C MADM, LIPA, BNP, CMP #### [facility] [address] [place] [address] Dr. Tasha Dodson WBC 15.0 103/ul Critically high 4.0-11.0 [facility] Comment on above: Performed By: #### C MADM, LIPA, BNP, CMP #### [facility] [address] [place] [address] Dr. Tasha Dodson CULTURE URINEon 12-26-2021 CULTURE URINE Culture Observations: LIGHT GROWTH OF MIXED GENITAL AMADOU. NO POTENTIAL PATHOGENS SEEN. Normal [facility] Comment on above: Performed By: #### C BC #### [facility] [address] [place] [address] Dr. Tasha Dodson [facility]on SARS-CoV-2 (COVID-19) RNA CARITO+probe Ql (Unsp spec) Not detected Normal NOT DETECTED [facility] Comment on above: Result Comment: When diagnostic [...] for this test is supported by the [employer]'s declaration that [...] #### C MADM, LIPA, BNP, CMP #### [facility] [address] [place] [address] Dr. Tasha Dodson ER URINE PROFILEon 2 Bilirubin Ql (U) Negative Normal NEGATIVE [facility] Comment on above: Performed By: #### T SH, BMP #### [facility] [address] [place] [address] Dr. Tasha Dodson Clarity (U) CLEAR Normal CLEAR [facility] Comment on above: Performed By: #### T SH, BMP #### [facility] [address] [place] [address] Dr. Tasha Dodson Color (U) LT. YELLOW Normal YELLOW [facility] Comment on above: Performed By: #### T SH, BMP #### [facility] [address] [place] [address] Dr. Tasha FERNANDES A micrscopic examination will be performed if indicated. Normal [facility] Comment on above: Performed By: #### T SH, BMP #### [facility] [address] [place] [address] Dr. Tasha Dodson Glucose Ql (U) Negative Normal NEGATIVE [facility] Comment on above: Performed By: #### T SH, BMP #### [facility] [address] [place] [address] Dr. Tasha Dodson Hemoglobin Ql (U) TRACE-INTACT Abnormal NEGATIVE [facility] Comment on above: Performed By: #### T SH, BMP #### [facility] [address] [place] [address] Dr. Tasha Dodson Ketones Ql (U) TRACE Abnormal NEGATIVE [facility] Comment on above: Performed By: #### T SH, BMP #### [facility] [address] [place] [address] Dr. Tasha Dodson LEUKOCYTES Negative Normal NEGATIVE [facility] Comment on above: Performed By: #### T SH, BMP #### [facility] [address] [place] [address] Dr. Tasha Dodson Nitrite Ql (U) Negative Normal NEGATIVE [facility] Comment on above: Performed By: #### T SH, BMP #### [facility] [address] [place] [address] Dr. Tasha Dodson pH (U) 7.0 [pH] Normal 5-9 [facility] Comment on above: Performed By: #### T SH, BMP #### [facility] [address] [place] [address] Dr. Tasha Dodson SPEC GRAVITY 1.010 Normal 1.005-<=1.02 5 [facility] Comment on above: Performed By: #### T SH, BMP #### [facility] [address] [place] [address] Dr. Tasha Dodson UA PROTEIN Negative Normal NEGATIVE/ TRACE [facility] Comment on above: Performed By: #### T SH, BMP #### [facility] [address] [place] [address] Dr. Tasha Dodson UR MICRO IND INDICATED Normal [facility] Comment on above: Performed By: #### T SH, BMP #### [facility] [address] [place] [address] Dr. Tasha Dodson Urobilinogen Qn (U) 0.2 {Juan'U}/dL Normal 0.2 - 1. 0 [facility] Comment on above: Performed By: #### T SH, BMP #### [facility] [address] [place] [address] Dr. Tasha Dodson INFLUENZA A AND B AGon 12-26 INFLUANEGH SEE BELOW Normal [facility] Comment on above: Result Comment: Nega tive for Flu A protein angiten. Infection due to Flu A cannot be ruled out. Flu A angiten in the sample may be below the detection limit of the test. Performed By: #### C BC #### [facility] [address] [place] [address] Dr. Tasha Dodson [facility] SEE BELOW Normal [facility] Comment on above: Result Comment: Nega tive for Flu B protein antigen. Infection due to Flu B cannot be ruled out. Flu B antigen in the sample may be below the detection limit of the test. Performed By: #### C BC #### [facility] [address] [place] [address] Dr. Tasha Dodson INFLUENZA A AG Negative Normal NEGATIVE SEE COMMENT [facility] Comment on above: Performed By: #### C BC #### [facility] [address] [place] [address] Dr. Tasha Dodson INFLUENZA B AG Negative Normal NEGATIVE SEE COMMENT [facility] Comment on above: Performed By: #### C BC #### [facility] [address] [place] [address] Dr. Tasha Dodson INTERNAL CONTROLS Within Normal Limits Normal Wi thin Normal Limits [facility] Comment on above: Performed By: #### C BC #### [facility] [address] [place] [address] Dr. Tasha Dodson LACTATE/LACTIC ACIDon 2021 Lactate [Moles/Vol] 1.5 mmol/L Normal 0.4-1.[address] [facility] Comment on above: Performed By: #### T SH, BMP #### [facility] [address] [place] [address] Dr. Tasha Dodson LIPASEon 12-26-2021 Lipase [Catalytic activity/Vol] 96.0 U/L Normal 73.0-393.0 [facility] Comment on above: Performed By: #### C MADM, LIPA, BNP, CMP #### [facility] [address] [place] [address] Dr. Tasha Dodson PROF 14(COMP METB)on 022 Albumin [Mass/Vol] 4.2 g/dL Normal 3.4-5.0 [facility] Comment on above: Performed By: #### C MADM, LIPA, BNP, CMP #### [facility] [address] [place] [address] Dr. Tasha Dodson Albumin/Globulin [Mass ratio] 1.1 {ratio} Normal [facility] Comment on above: Performed By: #### C MADM, LIPA, BNP, CMP #### [facility] [address] [place] [address] Dr. Tasha Dodson ALP [Catalytic activity/Vol] 68 U/L Normal 46-116 [facility] Comment on above: Performed By: #### C MADM, LIPA, BNP, CMP #### [facility] [address] [place] [address] Dr. Tasha Dodson ALT [Catalytic activity/Vol] 23 U/L Normal 14-59 [facility] Comment on above: Performed By: #### C MADM, LIPA, BNP, CMP #### [facility] [address] [place] [address] Dr. Tasha Dodson Anion gap [Moles/Vol] 12.3 mmol/L Normal [facility] Comment on above: Performed By: #### C MADM, LIPA, BNP, CMP #### [facility] [address] [place] [address] Dr. Tasha Dodson AST [Catalytic activity/Vol] 25 U/L Normal 15-37 [facility] Comment on above: Performed By: #### C MADM, LIPA, BNP, CMP #### [facility] [address] [place] [address] Dr. Tasha Dodson Bilirubin [Mass/Vol] 0.7 mg/dL Normal 0.2-1.0 [facility] Comment on above: Performed By: #### C MADM, LIPA, BNP, CMP #### [facility] [address] [place] [address] Dr. Tasha Dodson Calcium [Mass/Vol] 9.5 mg/dL Normal 8.5-10.1 [facility] Comment on above: Performed By: #### C MADM, LIPA, BNP, CMP #### [facility] [address] [place] [address] Dr. Tasha Dodson Chloride [Moles/Vol] 80 mmol/L Critically low 98-107 [facility] Comment on above: Performed By: #### C MADM, LIPA, BNP, CMP #### [facility] [address] [address] [address] Tasha Dodson CO2 [Moles/Vol] 27.1 mmol/L Normal 21.0-32.0 [facility] Comment on above: Performed By: #### C MADM, LIPA, BNP, CMP #### [facility] [address] [address] [address] Tasha Dodson Creatinine [Mass/Vol] 0.85 mg/dL Normal 0.55-1.02 [facility] Comment on above: Performed By: #### C MADM, LIPA, BNP, CMP #### [facility] [address] [address] [address] Tasha Dodson EGFR-AF GUYANESE >60 Normal >=60 [facility] Comment on above: Performed By: #### C MADM, LIPA, BNP, CMP #### [facility] [address] [address] [address] Tasha Dodson EGFR-NON AF GUYANESE >60 Normal >=60 [facility] Comment on above: Performed By: #### C MADM, LIPA, BNP, CMP #### [facility] [address] [address] [address] Tasha Dodson Globulin (S) [Mass/Vol] 3.9 g/dL Normal [facility] Comment on above: Performed By: #### C MADM, LIPA, BNP, CMP #### [facility] [address] [address] [address] Tasha Dodson Glucose [Mass/Vol] 132 mg/dL Critically high 74-106 [facility] Comment on above: Performed By: #### C MADM, LIPA, BNP, CMP #### [facility] [address] [address] [address] Tasha Dodson Potassium [Moles/Vol] 2.4 mmol/L Critically low 3.5-5.1 [facility] Comment on above: Performed By: #### C MADM, LIPA, BNP, CMP #### [facility] [address] [place] [address] Dr. Tasha Dodson Protein [Mass/Vol] 8.1 g/dL Normal 6.4-8.2 [facility] Comment on above: Performed By: #### C MADM, LIPA, BNP, CMP #### [facility] [address] [place] [address] Dr. Tasha Dodson Sodium [Moles/Vol] 116 mmol/L Critically low 136-145 [facility] Comment on above: Performed By: #### C MADM, LIPA, BNP, CMP #### [facility] [address] [place] [address] Dr. Tasha Dodson Urea nitrogen [Mass/Vol] 12.0 mg/dL Normal 7.0-18.0 [facility] Comment on above: Performed By: #### C MADM, LIPA, BNP, CMP #### [facility] [address] [place] [address] Dr. Tasha Dodson Urea nitrogen/Creatinine [Mass ratio] 14.1 mg/mg [facility] Comment on above: Performed By: #### C MADM, LIPA, BNP, CMP #### [facility] [address] [place] [address] Dr. Tasha Dodson PROF CHEM 8 (BAS METB)on Anion gap [Moles/Vol] 11.4 mmol/L Normal [facility] Comment on above: Performed By: #### T SH, BMP #### [facility] [address] [place] [address] Dr. Tasha Dodson Calcium [Mass/Vol] 8.4 mg/dL Critically low 8.5-10.1 [facility] Comment on above: Performed By: #### T SH, BMP #### [facility] [address] [place] [address] Dr. Tasha Dodson Chloride [Moles/Vol] 89 mmol/L Critically low 98-107 [facility] Comment on above: Performed By: #### T SH, BMP #### [facility] [address] [address] [address] Tasha Dodson CO2 [Moles/Vol] 25.5 mmol/L Normal 21.0-32.0 [facility] Comment on above: Performed By: #### T SH, BMP #### [facility] [address] [address] [address] Tasha Dodson Creatinine [Mass/Vol] 0.89 mg/dL Normal 0.55-1.02 [facility] Comment on above: Performed By: #### T SH, BMP #### [facility] [address] [address] [address] Tasha Dodson EGFR-AF GUYANESE >60 Normal >=60 [facility] Comment on above: Performed By: #### T SH, BMP #### [facility] [address] [address] [address] Tasha Dodson EGFR-NON AF GUYANESE 60 mL/min/1.73m2 Normal >=60 [facility] Comment on above: Performed By: #### T SH, BMP #### [facility] [address] [address] [address] Tasha Dodson Glucose [Mass/Vol] 166 mg/dL Critically high 74-106 [facility] Comment on above: Performed By: #### T SH, BMP #### [facility] [address] [address] [address] Tasha Dodson Potassium [Moles/Vol] 3.0 mmol/L Critically low 3.5-5.1 [facility] Comment on above: Performed By: #### T SH, BMP #### [facility] [address] [address] [address] Tasha Dodson Sodium [Moles/Vol] 123 mmol/L Critically low 136-145 [facility] Comment on above: Performed By: #### T SH, BMP #### [facility] [address] [address] [address] Tasha Dodson Urea nitrogen [Mass/Vol] 9.0 mg/dL Normal 7.0-18.0 [facility] Comment on above: Performed By: #### T SH, BMP #### [facility] [address] [place] [address] Dr. Tasha Dodson Urea nitrogen/Creatinine [Mass ratio] 10.1 mg/mg Normal [facility] Comment on above: Performed By: #### T JESI, BMP #### [facility] [address] [place] [address] Dr. Tasha Dodson PROTIMEon 12-26-2021 INR Coag (PPP) [Relative time] 0.96 {INR} Normal [facility] Comment on above: Performed By: #### T JESI, BMP #### [facility] [address] [place] [address] Dr. Tasha Dodson INR GUIDELINES SEE BELOW Normal [facility] Comment on above: Result Comment: JO RED INR: 2.0 - 3.0 CONDITIONS NOT LISTED BELOW 2.5 - 3.5 FOR PROSTHETIC HEART VALVE REPLACEMENT 2.5 - 3.5 RECURRENT THROMBOSIS Performed By: #### T JESI, BMP #### [facility] [address] [place] [address] Dr. Tasha Dodson PT Coag (PPP) [Time] 10.4 s Normal 9.0-11.6 [facility] Comment on above: Performed By: #### T JESI, BMP #### [facility] [address] [place] [address] Dr. Tasha Dodson PTTon 12-26-2021 aPTT Coag (Bld) [Time] 26.2 s Normal 22.3-36.2 [facility] Comment on above: Performed By: #### T JESI, BMP #### [facility] [address] [place] [address] Dr. Tasha Dodson SODIUM RANDOM URINEon 2021 Sodium (U) [Moles/Vol] 71 mmol/L Normal 30-90 [facility] Comment on above: Performed By: #### T JESI, BMP #### [facility] [address] [place] [address] Dr. Tasha Dodson T4on 12-26-2021 T4 [Mass/Vol] 10.60 ug/dL Normal 4.80-13.90 [facility] Comment on above: Performed By: #### C BC #### [facility] [address] [place] [address] Dr. Tasha Dodson TSHon 12-26-2021 TSH 5.236 uIU/mL Critically high 0.358-3.740 [facility] Comment on above: Performed By: #### C BC #### [facility] [address] [place] [address] Dr. Tasha Dodson URINE MICROSCOPIC ONLYon BACTERIA TRACE Abnormal NONE SEEN [facility] Comment on above: Performed By: #### T SH, BMP #### [facility] [address] [place] [address] Dr. Tasha Dodson Bacteria identified Cx Nom (U) NOT INDICATED Normal [facility] Comment on above: Performed By: #### T SH, BMP #### [facility] [address] [place] [address] Dr. Tasha Dodson CAST NONE SEEN Normal NONE SEEN [facility] Comment on above: Performed By: #### T SH, BMP #### [facility] [address] [place] [address] Dr. Tasha Dodson Crystals LM Nom (Urine sed) NONE SEEN Normal NONE SEEN [facility] Comment on above: Performed By: #### T SH, BMP #### [facility] [address] [place] [address] Dr. Tasha Dodson Epithelial cells LM Ql (Urine sed) NONE SEEN Normal NONE SEEN /RARE [facility] Comment on above: Performed By: #### T SH, BMP #### [facility] [address] [place] [address] Dr. Tasha Dodson MUCOUS NONE SEEN Normal NONE SEEN [facility] Comment on above: Performed By: #### T SH, BMP #### [facility] [address] [place] [address] Dr. Tasha Dodson RBC 0-2 Normal 0-2 [facility] Comment on above: Performed By: #### T SH, BMP #### [facility] [address] [place] [address] Dr. Tasha Dodson WBC 0-2 Abnormal NONE SEEN [facility] Comment on above: Performed By: #### T SH, BMP #### [facility] [address] [address] [address] Tasha Dodson XR CHEST 1 Von [...] TING MIXON Date: 2021-12-26 11:32 Normal [facility] XR LSPINE MIN 4 VIEWSon 11-20 XR [...] JESUS BRUNO Date: 2021-11-30 22:52 Normal [facility] CBC AUTO DIFFon 11-09-2021 BASO # 0.1 103/ul Normal 0.0-0.1 [facility] Comment on above: Performed By: #### C MADM, LIPA, BNP, CMP #### [facility] [address] [place], [place] [address] Dr. Tasha Dodson Basophils/100 WBC (Bld) 0.7 % Normal 0.2-2.0 T [facility] Comment on above: Performed By: #### C MADM, LIPA, BNP, CMP #### [facility] [address] [place] [address] Dr. Tasha Dodson EO # 0.2 103/ul Normal 0.0-0.7 [facility] Comment on above: Performed By: #### C MADM, LIPA, BNP, CMP #### [facility] [address] [place] [address] Dr. Tasha Dodson Eosinophils/100 WBC (Bld) 1.8 % Normal 0.9-7.0 [facility] Comment on above: Performed By: #### C MADM, LIPA, BNP, CMP #### [facility] [address] [place] [address] Dr. Tasha Dodson Erythrocyte distribution width (RBC) [Ratio] 13.0 % Normal 11.0-15.0 [facility] Comment on above: Performed By: #### C MADM, LIPA, BNP, CMP #### [facility] [address] [place] [address] Dr. Tasha Dodson Hematocrit (Bld) [Volume fraction] 33.8 % Critically low 36.0-48.0 [facility] Comment on above: Performed By: #### C MADM, LIPA, BNP, CMP #### [facility] [address] [place] [address] Dr. Tasha Dodson Hemoglobin (Bld) [Mass/Vol] 12.5 g/dL Normal 12.0-16.0 [facility] Comment on above: Performed By: #### C MADM, LIPA, BNP, CMP #### [facility] [address] [place] [address] Dr. Tasha Dodson IG # 0.02 10e3/ul Normal 0.00-0.03 [facility] Comment on above: Performed By: #### C MADM, LIPA, BNP, CMP #### [facility] [address] [place] [address] Dr. Tasha Dodson IG % 0.2 % Normal 0.0-0.5 [facility] Comment on above: Performed By: #### C MADM, LIPA, BNP, CMP #### [facility] [address] [place] [address] Dr. Tasha Dodson LYMPH # 2.9 103/ul Normal 1.2-3.8 [facility] Comment on above: Performed By: #### C MADM, LIPA, BNP, CMP #### [facility] [address] [place] [address] Dr. Tasha Dodson Lymphocytes/100 WBC (Bld) 29.4 % Normal 20.5-60.0 [facility] Comment on above: Performed By: #### C MADM, LIPA, BNP, CMP #### [facility] [address] [place] [address] Dr. Tasha Dodson MANUAL DIFF REQ NO Normal [facility] Comment on above: Performed By: #### C MADM, LIPA, BNP, CMP #### [facility] [address] [place] [address] Dr. Tasha Dodson MCH (RBC) [Entitic mass] 34.1 pg Critically high 26.7-3 4.0 [facility] Comment on above: Performed By: #### C MADM, LIPA, BNP, CMP #### [facility] [address] [place] [address] Dr. Tasha Dodson MCHC (RBC) [Mass/Vol] 37.0 g/dL Critically high 29.9-35.2 [facility] Comment on above: Performed By: #### C MADM, LIPA, BNP, CMP #### [facility] [address] [place] [address] Dr. Tasha Dodson MCV (RBC) [Entitic vol] 92.1 fL Normal 81.0-99.0 [facility] Comment on above: Performed By: #### C MADM, LIPA, BNP, CMP #### [facility] [address] [place] [address] Dr. Tasha Dodson MONO # 0.8 103/ul Normal 0.3-0.8 [facility] Comment on above: Performed By: #### C MADM, LIPA, BNP, CMP #### [facility] [address] [address] [address] Tasha Dodson Monocytes/100 WBC (Bld) 8.2 % Normal 1.7-12.0 [facility] Comment on above: Performed By: #### C MADM, LIPA, BNP, CMP #### [facility] [address] [address] [address] Tasha Dodson NEUT # 5.9 103/ul Normal 1.4-6.5 [facility] Comment on above: Performed By: #### C MADM, LIPA, BNP, CMP #### [facility] [address] [address] [address] Tasha Dodson Neutrophils/100 WBC (Bld) 59.7 % Normal 43.0-75.0 [facility] Comment on above: Performed By: #### C MADM, LIPA, BNP, CMP #### [facility] [address] [place] [address] Dr. Tasha Dodson Platelet mean volume (Bld) [Entitic vol] 8.9 fL Critically low 9.5-13.5 [facility] Comment on above: Performed By: #### C MADM, LIPA, BNP, CMP #### [facility] [address] [place] [address] Dr. Tasha Dodson PLT 370 103/ul Normal 150-450 [facility] Comment on above: Performed By: #### C MADM, LIPA, BNP, CMP #### [facility] [address] [place] [address] Dr. Tasha Dodson RBC 3.67 106/ul Critically low 4.20-5.40 [facility] Comment on above: Performed By: #### C MADM, LIPA, BNP, CMP #### [facility] [address] [place] [address] Dr. Tasha Dodson WBC 9.9 103/ul Normal 4.0-11.0 [facility] Comment on above: Performed By: #### C MADM, LIPA, BNP, CMP #### [facility] [address] [place] [address] Dr. Tasha Dodson FREE T4on 11-09-2021 Free T4 [Mass/Vol] 1.48 ng/dL Critically high 0.76-1.46 [facility] Comment on above: Performed By: #### F T4 #### [facility] [address] [place] [address] Dr. Tasha Dodson PROF CHEM 8 (BAS METB)on Anion gap [Moles/Vol] 11.1 mmol/L Normal [facility] Comment on above: Performed By: #### T SH, BMP #### [facility] [address] [place] [address] Dr. Tasha Dodson Calcium [Mass/Vol] 9.3 mg/dL Normal 8.5-10.1 [facility] Comment on above: Performed By: #### T SH, BMP #### [facility] [address] [place] [address] Dr. Tasha Dodson Chloride [Moles/Vol] 92 mmol/L Critically low 98-107 [facility] Comment on above: Performed By: #### T SH, BMP #### [facility] [address] [place] [address] Dr. Tasha Dodson CO2 [Moles/Vol] 29.2 mmol/L Normal 21.0-32.0 [facility] Comment on above: Performed By: #### T SH, BMP #### [facility] [address] [place] [address] Dr. Tasha Dodson Creatinine [Mass/Vol] 0.68 mg/dL Normal 0.55-1.02 [facility] Comment on above: Performed By: #### T SH, BMP #### [facility] [address] [place] [address] Dr. Tasha Dodson EGFR-AF GUYANESE >60 Normal >=60 [facility] Comment on above: Performed By: #### T SH, BMP #### [facility] [address] [place] [address] Dr. Tasha Dodson EGFR-NON AF GUYANESE >60 Normal >=60 [facility] Comment on above: Performed By: #### T SH, BMP #### [facility] [address] [place] [address] Dr. Tasha Dodson Glucose [Mass/Vol] 109 mg/dL Critically high 74-106 [facility] Comment on above: Performed By: #### T SH, BMP #### [facility] [address] [place] [address] Dr. Tasha Dodson Potassium [Moles/Vol] 3.3 mmol/L Critically low 3.5-5.1 [facility] Comment on above: Performed By: #### T SH, BMP #### [facility] [address] [place] [address] Dr. Tasha Dodson Sodium [Moles/Vol] 129 mmol/L Critically low 136-145 [facility] Comment on above: Performed By: #### T SH, BMP #### [facility] [address] [place] [address] Dr. Tasha Dodson Urea nitrogen [Mass/Vol] 9.0 mg/dL Normal 7.0-18.0 [facility] Comment on above: Performed By: #### T JESI, BMP #### [facility] [address] [place] [address] Dr. Tasha Dodson Urea nitrogen/Creatinine [Mass ratio] 13.2 mg/mg Normal [facility] Comment on above: Performed By: #### T SH, BMP #### [facility] [address] [place] [address] Dr. Tasha Dodson TSHon 11-09-2021 TSH 1.193 uIU/mL Normal 0.358-3.740 [facility] Comment on above: Performed By: #### T SH, BMP #### [facility] [address] [place] [address] Dr. Tasha Dodson LIPID PROFILEon 08-06-2021 CHOL-HDL RATIO NORM SEE BELOW Normal [facility] Comment on above: Result Comment: 3.3 - 4.4 LOW RISK 4.4 - 7.1 AVERAGE RISK 7.1 - 11.0 MODERATE RISK >11.0 HIGH RISK Performed By: #### C MADM, LIPA, BNP, CMP #### [facility] [address] [place] [address] Dr. Tasha Dodson Cholesterol [Mass/Vol] 198 mg/dL Normal <=200 [facility] Comment on above: Performed By: #### C MADM, LIPA, BNP, CMP #### [facility] [address] [address] [address] Tasha Dodson Cholesterol in HDL [Mass/Vol] 77 mg/dL Critically high 40-60 [facility] Comment on above: Performed By: #### C MADM, LIPA, BNP, CMP #### [facility] [address] [address] [address] Tasha Dodson Cholesterol in LDL [Mass/Vol] 106.0 mg/dL Normal [facility] Comment on above: Performed By: #### C MADM, LIPA, BNP, CMP #### [facility] [address] [address] [address] Tasha Dodson Cholesterol.total/Choles terol in HDL [Mass ratio] 2.6 {ratio} Normal [facility] Comment on above: Performed By: #### C MADM, LIPA, BNP, CMP #### [facility] [address] [address] [address] Tasha Dodson HDL NORMAL > or = 60 mg/dl - LOW CARDIOVASCULAR RISK <40 mg/dl - HIGH CARDIOVASCULAR RISK Normal [facility] Comment on above: Performed By: #### C MADM, LIPA, BNP, CMP #### [facility] [address] [address] [address] Tasha Dodson LDL CALC NORMAL SEE BELOW Normal [facility] Comment on above: Result Comment: <100 mg/dl OPTIMAL 100 - 129 mg/dl NEAR OR ABOVE OPTIMAL 130 - 159 mg/dl BORDERLINE HIGH 160 - 189 mg/dl HIGH >190 mg/dl VERY HIGH Performed By: #### C MADM, LIPA, BNP, CMP #### [facility] [address] [address] [address] Tasha Dodson Triglyceride [Mass/Vol] 75 mg/dL Normal <=150 T [facility] Comment on above: Performed By: #### C MADM, LIPA, BNP, CMP #### [facility] [address] [address] [address] Tasha Dodson VLDL CALC 15.0 mg/dL Normal [facility] Comment on above: Performed By: #### C MADM, LIPA, BNP, CMP #### [facility] [address] [address] [address] Tasha Dodson LIVER PROFILEon 08-06-2021 Albumin [Mass/Vol] 3.7 g/dL Normal 3.4-5.0 [facility] Comment on above: Performed By: #### C MADM, LIPA, BNP, CMP #### [facility] [address] [address] [address] Tasha Dodson Albumin/Globulin [Mass ratio] 1.0 {ratio} Normal [facility] Comment on above: Performed By: #### C MADM, LIPA, BNP, CMP #### [facility] [address] [address] [address] Tasha Dodson ALP [Catalytic activity/Vol] 62 U/L Normal 46-116 [facility] Comment on above: Performed By: #### C MADM, LIPA, BNP, CMP #### [facility] [address] [address] [address] Tasha Dodson ALT [Catalytic activity/Vol] 26 U/L Normal 14-59 [facility] Comment on above: Performed By: #### C MADM, LIPA, BNP, CMP #### [facility] [address] [address] [address] Tasha Dodson AST [Catalytic activity/Vol] 24 U/L Normal 15-37 [facility] Comment on above: Performed By: #### C MADM, LIPA, BNP, CMP #### [facility] [address] [address] [address] Tasha Dodson BILI, CONJUGATED 0.1 mg/dL Normal 0.0-0.2 [facility] Comment on above: Performed By: #### C MADM, LIPA, BNP, CMP #### [facility] [address] [address] [address] Tasha Dodson Bilirubin [Mass/Vol] 0.5 mg/dL Normal 0.2-1.0 [facility] Comment on above: Performed By: #### C MADM, LIPA, BNP, CMP #### [facility] [address] [place] [address] Dr. Tasha Dodson Globulin (S) [Mass/Vol] 3.8 g/dL Normal T [facility] Comment on above: Performed By: #### C MADM, LIPA, BNP, CMP #### [facility] [address] [place] [address] Dr. Tasha Dodson Protein [Mass/Vol] 7.5 g/dL Normal 6.4-8.2 [facility] Comment on above: Performed By: #### C MADM, LIPA, BNP, CMP #### [facility] [address] [place] [address] Dr. Tasha Dodson FREE T4on 07-28-2021 Free T4 [Mass/Vol] 1.32 ng/dL Normal 0.76-1.46 [facility] Comment on above: Performed By: #### T SH, BMP #### [facility] [address] [place] [address] Dr. Tasha Dodson PROF CHEM 8 (BAS METB)on Anion gap [Moles/Vol] 11.6 mmol/L Normal [facility] Comment on above: Performed By: #### B MP, TSH #### [facility] [address] [place] [address] Dr. Tasha Dodson Calcium [Mass/Vol] 9.4 mg/dL Normal 8.5-10.1 [facility] Comment on above: Performed By: #### B MP, TSH #### [facility] [address] [place] [address] Dr. Tasha Dodson Chloride [Moles/Vol] 93 mmol/L Critically low 98-107 [facility] Comment on above: Performed By: #### B MP, TSH #### [facility] [address] [place] [address] Dr. Tasha Dodson CO2 [Moles/Vol] 29.8 mmol/L Normal 21.0-32.0 [facility] Comment on above: Performed By: #### B MP, TSH #### [facility] [address] [address] [address] Tasha Dodson Creatinine [Mass/Vol] 0.74 mg/dL Normal 0.55-1.02 [facility] Comment on above: Performed By: #### B MP, TSH #### [facility] [address] [address] [address] Tasha Dodson EGFR-AF GUYANESE >60 Normal >=60 [facility] Comment on above: Performed By: #### B MP, TSH #### [facility] [address] [address] [address] Tasha Dodson EGFR-NON AF GUYANESE >60 Normal >=60 [facility] Comment on above: Performed By: #### B MP, TSH #### [facility] [address] [address] [address] Tasha Dodson Glucose [Mass/Vol] 114 mg/dL Critically high 74-106 T [facility] Comment on above: Performed By: #### B MP, TSH #### [facility] [address] [address] [address] Tasha Dodson Potassium [Moles/Vol] 3.4 mmol/L Critically low 3.5-5.1 [facility] Comment on above: Performed By: #### B MP, TSH #### [facility] [address] [address] [address] Tasha Dodson Sodium [Moles/Vol] 131 mmol/L Critically low 136-145 Th [facility] Comment on above: Performed By: #### B MP, TSH #### [facility] [address] [address] [address] Tasha Dodson Urea nitrogen [Mass/Vol] 12.0 mg/dL Normal 7.0-18.0 [facility] Comment on above: Performed By: #### B MP, TSH #### [facility] [address] [address] [address] Tasha Dodson Urea nitrogen/Creatinine [Mass ratio] 16.2 mg/mg Normal [facility] Comment on above: Performed By: #### B MP, TSH #### [facility] [address] [address] [address] Tasha Dodson TSHon 07-28-2021 TSH 1.790 uIU/mL Normal 0.358-3.740 [facility] Comment on above: Performed By: #### B MP, TSH #### [facility] [address] [address] [address] Tasha Dodson TSH RANGE SEE BELOW Normal [facility] Comment on above: Result Comment: <0.3 4 UIU/ml HYPERTHYROID 0.34-5.60 UIU/ml EUTHYROID >5.60 UIU/ml HYPOTHYROID Performed By: #### B MP, TSH #### [facility] [address] [address] [address] Tasha Dodson CBC Auto Differentialon 10-0 Basophils (Bld) [#/Vol] 0.1 10*3/uL 0 - 0.2 K/u L [place] Basophils/100 WBC (Bld) 1.1 % [place] Eosinophils (Bld) [#/Vol] 0.2 10*3/uL 0 - 0.7 K/uL [place] Eosinophils/100 WBC (Bld) 1.4 % [place] Erythrocyte distribution width (RBC) [Ratio] 14.4 % 11.5 - 14.5 % [place] Hematocrit (Bld) [Volume fraction] 33.6 % Low 37 - 47 % [place] Hemoglobin (Bld) [Mass/Vol] 11.1 g/dL Low 12 - 16 g/dL [place] Interpretation and review of laboratory results Abnormal [place] Lymphocytes (Bld) [#/Vol] 2.3 10*3/uL 1 - 4.8 K/uL [place] Lymphocytes/100 WBC (Bld) 18.0 % [place] MCH (RBC) [Entitic mass] 29.5 pg 27 - 31.3 p g [place] MCHC (RBC) [Mass/Vol] 33.0 % 33 - 37 % [place] MCV (RBC) [Entitic vol] 89.5 fL 82 - 100 fL [place] Monocytes (Bld) [#/Vol] 0.9 10*3/uL High 0.2 - 0.8 K/uL [place] Monocytes/100 WBC (Bld) 6.9 % [place] Neutrophils Absolute 9.1 K/uL High 1.4 - 6 .5 K/uL [place] Neutrophils/100 WBC (Bld) 72.6 % [place] Platelets (Bld) [#/Vol] 548 10*3/uL High 130 - 400 K/uL [place] RBC (Bld) [#/Vol] 3.75 10*6/uL Low [place] WBC (Bld) [#/Vol] 12.5 10*3/uL High 4.8 - 10.8 K/uL [place] CBC With Platelet and Differ entialon 11-20-2018 Basophils (Bld) [#/Vol] 0.1 10*3/uL Normal 0.0-0.2 [facility] Comment on above: Performed By: #### E SR #### [facility] [address] [facility] [address] Basophils/100 WBC (Bld) 1.1 % Normal [facility] Comment on above: Performed By: #### E SR #### [facility] [address] [facility] [address] Eosinophils (Bld) [#/Vol] 0.2 10*3/uL Normal 0.0-0.7 [facility] Comment on above: Performed By: #### E SR #### [facility] [address] [facility] [address] Eosinophils/100 WBC (Bld) 1.4 % Normal [facility] Comment on above: Performed By: #### E SR #### [facility] [address] [facility] [address] Erythrocyte distribution width (RBC) [Ratio] 14.4 % Normal 11.5-14.5 [facility] Comment on above: Performed By: #### E SR #### [facility] [address] [place] [address] Hematocrit (Bld) [Volume fraction] 33.6 % Low 37.0-47.0 [facility] Comment on above: Performed By: #### E SR #### [facility] [address] [place] [address] Hemoglobin (Bld) [Mass/Vol] 11.1 g/dL Low 12.0-16.0 [facility] Comment on above: Performed By: #### E SR #### [facility] [address] [place] [address] Lymphocytes (Bld) [#/Vol] 2.3 10*3/uL Normal 1.0-4.8 [facility] Comment on above: Performed By: #### E SR #### [facility] [address] [place] [address] Lymphocytes/100 WBC (Bld) 18.0 % Normal [facility] Comment on above: Performed By: #### E SR #### [facility] [address] [place] [address] MCH (RBC) [Entitic mass] 29.5 pg Normal 27.0-31.3 [facility] Comment on above: Performed By: #### E SR #### [facility] [address] [place] [address] MCHC (RBC) [Mass/Vol] 33.0 % Normal 33.0-37.0 [facility] Comment on above: Performed By: #### E SR #### [facility] [address] [place] [address] MCV (RBC) [Entitic vol] 89.5 fL Normal 82.0-100.0 [facility] Comment on above: Performed By: #### E SR #### [facility] [address] [place] [address] Monocytes (Bld) [#/Vol] 0.9 10*3/uL Critically high 0.2-0. 8 [facility] Comment on above: Performed By: #### E SR #### [facility] [address] [place] [address] Monocytes/100 WBC (Bld) 6.9 % Normal [facility] Comment on above: Performed By: #### E SR #### [facility] [address] [place] [address] Neutrophils (Bld) [#/Vol] 9.1 10*3/uL Critically high 1.4-6.5 [facility] Comment on above: Performed By: #### E SR #### [facility] [address] [place] [address] Neutrophils/100 WBC (Bld) 72.6 % Normal [facility] Comment on above: Performed By: #### E SR #### [facility] [address] [place] [address] Platelets (Bld) [#/Vol] 548 10*3/uL Critically high 130-40 0 [facility] Comment on above: Performed By: #### E SR #### [facility] [address] [place] [address] RBC (Bld) [#/Vol] 3.75 10*6/uL Low 4.20-5.40 [facility] Comment on above: Performed By: #### E SR #### [facility] [address] [place] [address] WBC (Bld) [#/Vol] 12.5 10*3/uL Critically high 4.8-10.8 [facility] Comment on above: Performed By: #### E SR #### [facility] [address] [place] [address] EKG 12 Leadon 11-20-2018 Atrial Rate 79 BPM [facility], [place] P [place] 58 degrees [facility], [place] P-R Interval 176 ms [place], [place] Q-T Interval 404 ms [place] QRS Duration 130 ms [place] QTc Calculation (Bazett) 463 ms [place] R [place] -11 degrees [facility], [place] T [place] 5 degrees [place] Urea nitrogen [Mass/Vol] Normal sinus rh ythm Right bundle branch block Moderate voltage criteria for LVH, may be normal variant Abnormal ECG When compared with ECG of 13-NOV-2018 08:33, No significant change was found Confirmed by Анна Zamarripa ([id number]) on 11/20/2018 9:39:56 AM [place] Ventricular Rate 79 BPM [place], [place] Joseph, Chpo Incoming Results From [place] - 11/20/2018 9:40 AM EDT Normal sinus rhythm Right bundle branch block Moderate voltage criteria for LVH, may be normal variant Abnormal ECG When compared with ECG of 13-NOV-2018 08:33, No significant change was found Confirmed by Анна Zamarripa ([id number]) on 11/20/2018 9:39:56 AM [place] CBC Auto Differentialon 10-23 Neutrophils Absolute 6.1 K/uL 1.4 - 6 .5 K/uL [place] CBC With Platelet and Differ entialon 11-19-2018 Basophils (Bld) [#/Vol] 0.2 10*3/uL Normal 0.0-0.2 [place] Comment on above: Performed By: #### C MP #### [facility] [address] [place] [address] Basophils/100 WBC (Bld) 1.5 % Normal [place] Comment on above: Performed By: #### C MP #### [facility] [address] [place] [address] Eosinophils (Bld) [#/Vol] 0.3 10*3/uL Normal 0.0-0.7 [place] Comment on above: Performed By: #### C MP #### [facility] [address] [place] [address] Eosinophils/100 WBC (Bld) 2.5 % Normal [place] Comment on above: Performed By: #### C MP #### [facility] [address] [place] [address] Erythrocyte distribution width (RBC) [Ratio] 14.1 % Normal 11.5-14.5 [place] Comment on above: Performed By: #### C MP #### [facility] [address] [place] [address] Hematocrit (Bld) [Volume fraction] 29.3 % Low 37.0-47.0 [place] Comment on above: Performed By: #### C MP #### [facility] [address] [place] [address] Hemoglobin (Bld) [Mass/Vol] 10.1 g/dL Low 12.0-16.0 [place] Comment on above: Performed By: #### C MP #### [facility] [address] [facility] [facility] [facility] [place] [address] Lymphocytes (Bld) [#/Vol] 2.8 10*3/uL Normal 1.0-4.8 [place] Comment on above: Performed By: #### C MP #### [facility] [address] [facility] [facility] [place] [address] Lymphocytes/100 WBC (Bld) 27.3 % Normal [place] Comment on above: Performed By: #### C MP #### [facility] [address] [place] [address] MCH (RBC) [Entitic mass] 30.7 pg Normal 27.0-31.3 [place] Comment on above: Performed By: #### C MP #### [facility] [address] [place] [address] MCHC (RBC) [Mass/Vol] 34.6 % Normal 33.0-37.0 [place] Comment on above: Performed By: #### C MP #### [facility] [address] [place] [address] MCV (RBC) [Entitic vol] 88.9 fL Normal 82.0-100.0 [place] Comment on above: Performed By: #### C MP #### [facility] [address] [place] [address] Monocytes (Bld) [#/Vol] 0.9 10*3/uL Critically high 0.2-0. 8 [place] Comment on above: Performed By: #### C MP #### [facility] [address] [place] [address] Monocytes/100 WBC (Bld) 9.2 % Normal [place] Comment on above: Performed By: #### C MP #### [facility] [address] [place] [address] Neutrophils (Bld) [#/Vol] 6.1 10*3/uL Normal 1.4-6.5 [facility] Comment on above: Performed By: #### C MP #### [facility] [address] [place] [address] Neutrophils/100 WBC (Bld) 59.5 % Normal [place] Comment on above: Performed By: #### C MP #### [facility] [address] [place] [address] Platelets (Bld) [#/Vol] 396 10*3/uL Normal 130-400 [place] Comment on above: Performed By: #### C MP #### [facility] [address] [place] [address] RBC (Bld) [#/Vol] 3.30 10*6/uL Low 4.20-5.40 [place] Comment on above: Performed By: #### C MP #### [facility] [address] [place] [address] WBC (Bld) [#/Vol] 10.2 10*3/uL Normal 4.8-10.8 [place] Comment on above: Performed By: #### C MP #### [facility] [address] [place] [address] High Sensitivity CRPon 11-19 High Sensitivity CRP 89.2 mg/L Critically high 0.0-5.0 [facility] Comment on above: Performed By: #### E SR #### [facility] [address] [place] [address] High sensitivity CRPon 11-19 CRP High Sensitivity 89.2 mg/L High 0 - 5 mg/L [place] Interpretation and review of laboratory results Abnormal [place] Otheron 11-19-2018 Interpretation and review of laboratory results Abnormal [place] Sedimentation Rateon 019 Sedimentation Rate 55 mm Critically high 0-30 [facility] Comment on above: Performed By: #### C MP #### [facility] [address] [place] [address] Sed Rate 55 mm High 0 - 30 mm [place] Basic Metabolic Panelon 10-22 Anion gap [Moles/Vol] 14 mmol/L Normal 9-15 [facility] Comment on above: Performed By: #### C MP #### [facility] [address] [place] [address] Calcium [Mass/Vol] 8.8 mg/dL Normal 8.5-9.9 [facility] Comment on above: Performed By: #### C MP #### [facility] [address] [place] [address] Chloride [Moles/Vol] 95 mmol/L Normal 95-107 [facility] Comment on above: Performed By: #### C MP #### [facility] [address] [place] [address] CO2 [Moles/Vol] 26 mmol/L Normal 20-31 [facility] Comment on above: Performed By: #### C MP #### [facility] [address] [place] [address] Creatinine [Mass/Vol] 0.58 mg/dL Normal 0.50-0.90 [facility] Comment on above: Performed By: #### C MP #### [facility] [address] [place] [address] GFR/1.73 sq M predicted among blacks MDRD (S/P/Bld) [Vol rate/Area] mL/min/{1.73_m2} Normal >60 [facility] Comment on above: Result Comment: >60 mL/min/1.73m2 EGFR, calc. for ages 18 and older using the MDRD formula (not corrected for weight), is valid for stable renal function. Performed By: #### C MP #### [facility] [address] [place] [address] GFR/1.73 sq M.predicted MDRD (S/P/Bld) [Vol rate/Area] mL/min/{1.73_m2} Normal >60 [facility] Comment on above: Result Comment: >60 mL/min/1.73m2 EGFR, calc. for ages 18 and older using the MDRD formula (not corrected for weight), is valid for stable renal function. Performed By: #### C MP #### [facility] [address] [place] [address] Glucose [Mass/Vol] 156 mg/dL Critically high 70-99 [facility] Comment on above: Performed By: #### C MP #### [facility] [address] [place] [address] Potassium [Moles/Vol] 3.3 mmol/L Low 3.4-4.9 [facility] Comment on above: Performed By: #### C MP #### [facility] [address] [place] [address] Sodium [Moles/Vol] 135 mmol/L Normal 135-144 [facility] Comment on above: Performed By: #### C MP #### [facility] [address] [place] [address] Urea nitrogen [Mass/Vol] 11 mg/dL Normal 8-23 [facility] Comment on above: Performed By: #### C MP #### [facility] [address] [place] [address] Anion gap [Moles/Vol] 14 mmol/L [place] Calcium [Mass/Vol] 8.8 mg/dL 8.5 - 9.9 mg/dL [place] Chloride [Moles/Vol] 95 mmol/L [place] CO2 [Moles/Vol] 26 mmol/L [place] Creatinine [Mass/Vol] 0.58 mg/dL 0.5 - 0.9 mg/dL [place] GFR >60.0 >60 [place] Comment on above: >60 mL/min/1.73m2 EG FR, calc. for ages 18 and older using the MDRD formula (not corrected for weight), is valid for stable renal function. GFR Non- >60.0 >60 [place] Comment on above: >60 mL/min/1.73m2 EG FR, calc. for ages 18 and older using the MDRD formula (not corrected for weight), is valid for stable renal function. Glucose [Mass/Vol] 156 mg/dL High 70 - 99 mg/dL [place] Interpretation and review of laboratory results Abnormal [place] Potassium [Moles/Vol] 3.3 mmol/L Low [place] Sodium [Moles/Vol] 135 mmol/L [place] Urea nitrogen [Mass/Vol] 11 mg/dL 8 - 23 mg/d L [place] Magnesiumon 11-18-2018 Magnesium [Mass/Vol] 1.8 mg/dL Normal 1.7-2.4 [facility] Comment on above: Performed By: #### C MP #### [facility] [address] [facility] [address] Magnesium [Mass/Vol] 1.8 mg/dL 1.7 - 2 .4 mg/dL [place] TSH w/out Reflexon 9 TSH Qn 0.880 uIU/mL Normal 0.440-3.86 [facility] Comment on above: Performed By: #### C MP #### [facility] [address] [place] [address] TSH without Reflexon 019 TSH Qn 0.880 m[IU]/L [place] CBC Auto Differentialon 10-22 Basophils (Bld) [#/Vol] 0.1 10*3/uL 0 - 0.2 K/u L [place] Basophils/100 WBC (Bld) 0.7 % [place] Eosinophils (Bld) [#/Vol] 0.4 10*3/uL 0 - 0.7 K/uL [place] Eosinophils/100 WBC (Bld) 2.8 % [place] Erythrocyte distribution width (RBC) [Ratio] 14.2 % 11.5 - 14.5 % [place] Hematocrit (Bld) [Volume fraction] 32.3 % Low 37 - 47 % [place] Hemoglobin (Bld) [Mass/Vol] 10.8 g/dL Low 12 - 16 g/dL [place] Interpretation and review of laboratory results Abnormal [place] Lymphocytes (Bld) [#/Vol] 2.6 10*3/uL 1 - 4.8 K/uL [place] Lymphocytes/100 WBC (Bld) 16.8 % [place] MCH (RBC) [Entitic mass] 30.3 pg 27 - 31.3 p g [place] MCHC (RBC) [Mass/Vol] 33.4 % 33 - 37 % [place] MCV (RBC) [Entitic vol] 90.5 fL 82 - 100 fL [place] Monocytes (Bld) [#/Vol] 1.3 10*3/uL High 0.2 - 0.8 K/uL [place] Monocytes/100 WBC (Bld) 8.3 % [place] Neutrophils Absolute 11.1 K/uL High 1.4 - 6 .5 K/uL [place] Neutrophils/100 WBC (Bld) 71.4 % [place] Platelets (Bld) [#/Vol] 375 10*3/uL 130 - 400 K/uL [place] RBC (Bld) [#/Vol] 3.57 10*6/uL Low [place] WBC (Bld) [#/Vol] 15.5 10*3/uL High 4.8 - 10.8 K/uL [place] CBC With Platelet and Differ entialon 11-17-2018 Basophils (Bld) [#/Vol] 0.1 10*3/uL Normal 0.0-0.2 [facility] Comment on above: Performed By: #### C MP #### [facility] [address] [place] [address] Basophils/100 WBC (Bld) 0.7 % Normal [facility] Comment on above: Performed By: #### C MP #### [facility] [address] [place] [address] Eosinophils (Bld) [#/Vol] 0.4 10*3/uL Normal 0.0-0.7 [facility] Comment on above: Performed By: #### C MP #### [facility] [address] [place] [address] Eosinophils/100 WBC (Bld) 2.8 % Normal [facility] Comment on above: Performed By: #### C MP #### [facility] [address] [place] [address] Erythrocyte distribution width (RBC) [Ratio] 14.2 % Normal 11.5-14.5 [facility] Comment on above: Performed By: #### C MP #### [facility] [address] [place] [address] Hematocrit (Bld) [Volume fraction] 32.3 % Low 37.0-47.0 [facility] Comment on above: Performed By: #### C MP #### [facility] [address] [place] [address] Hemoglobin (Bld) [Mass/Vol] 10.8 g/dL Low 12.0-16.0 [facility] Comment on above: Performed By: #### C MP #### [facility] [address] [place] [address] Lymphocytes (Bld) [#/Vol] 2.6 10*3/uL Normal 1.0-4.8 [facility] Comment on above: Performed By: #### C MP #### [facility] [address] [place] [address] Lymphocytes/100 WBC (Bld) 16.8 % Normal [facility] Comment on above: Performed By: #### C MP #### [facility] [address] [place] [address] MCH (RBC) [Entitic mass] 30.3 pg Normal 27.0-31.3 [facility] Comment on above: Performed By: #### C MP #### [facility] [address] [place] [address] MCHC (RBC) [Mass/Vol] 33.4 % Normal 33.0-37.0 [facility] Comment on above: Performed By: #### C MP #### [facility] [address] [place] [address] MCV (RBC) [Entitic vol] 90.5 fL Normal 82.0-100.0 [facility] Comment on above: Performed By: #### C MP #### [facility] [address] [place] [address] Monocytes (Bld) [#/Vol] 1.3 10*3/uL Critically high 0.2-0. 8 [facility] Comment on above: Performed By: #### C MP #### [facility] [address] [place] [address] Monocytes/100 WBC (Bld) 8.3 % Normal [facility] Comment on above: Performed By: #### C MP #### [facility] [address] [place] [address] Neutrophils (Bld) [#/Vol] 11.1 10*3/uL Critically high 1.4-6.5 [facility] Comment on above: Performed By: #### C MP #### [facility] [address] [place] [address] Neutrophils/100 WBC (Bld) 71.4 % Normal [facility] Comment on above: Performed By: #### C MP #### [facility] [address] [place] [address] Platelets (Bld) [#/Vol] 375 10*3/uL Normal 130-400 [facility] Comment on above: Performed By: #### C MP #### [facility] [address] [place] [address] RBC (Bld) [#/Vol] 3.57 10*6/uL Low 4.20-5.40 [facility] Comment on above: Performed By: #### C MP #### [facility] [address] [place] [address] WBC (Bld) [#/Vol] 15.5 10*3/uL Critically high 4.8-10.8 [facility] Comment on above: Performed By: #### C MP #### [facility] [address] [place] [address] High Sensitivity CRPon 11-17 High Sensitivity CRP 230.1 mg/L Critically high 0.0-5.0 [facility] Comment on above: Performed By: #### C MP #### [facility] [address] [place] [address] High sensitivity CRPon 11-17 CRP High Sensitivity 230.1 mg/L High 0 - 5 mg/L [facility], [place] Interpretation and review of laboratory results Abnormal [facility], [place] Sedimentation Rateon 019 Sedimentation Rate 50 mm Critically high 0-30 [facility] Comment on above: Performed By: #### C MP #### [facility] [address] [facility] [id number] Interpretation and review of laboratory results Abnormal [place], [place] Sed Rate 50 mm High 0 - 30 mm [place] DUP LOWER EXTREMITIES VAUGHN ATERAL VENOUSon 11-17-2018 NO DVT IDENTIFIED IN EITHER LOWER EXTREMITY. [place], [place] Joseph, Chpo Incoming Radiant Results From [employer] - 11/17/2018 8:05 AM EDT US DUP [...] NO DVT IDENTIFIED IN EITHER LOWER EXTREMITY. [place] DUP LOWER EXTREMITIES BILATERAL VENOUS : 11/16/2018 CLINICAL HISTORY: LEG SWELLING, PAIN, DVT SUSPECTED . COMPARISON: None available. Grayscale, compression, color and waveform Doppler analysis of both lower extremity deep venous systems was performed with augmentation. FINDINGS: There is no deep venous thrombosis, abnormal masses, fluid collections or other findings of concern identified within either lower extremity. [place] Urine Cultureon 11-17-2018 Bacteria identified Cx Nom (U) No growth 24 hours [place], [place] ORDERED BY: ADDY COKER SOURCE: Urine Clean Catch COLLECTED: 11/15/18 19:05 ANTIBIOTICS AT DI.: RECEIVED : 11/15/18 19:05 [place] CBC With Platelet and Differ entialon 11-16-2018 Neutrophils (Bld) [#/Vol] 15.5 10*3/uL Critically high 1.4-6.5 [facility] Comment on above: Performed By: #### P TT #### [facility] [address] [facility] [address] Basophils (Bld) [#/Vol] 0.2 10*3/uL Normal 0.0-0.2 [place] Comment on above: Performed By: #### P TT #### [facility] [address] [place] [address] Basophils/100 WBC (Bld) 0.9 % Normal [place] Comment on above: Performed By: #### P TT #### [facility] [address] [facility] [address] Eosinophils (Bld) [#/Vol] 0.1 10*3/uL Normal 0.0-0.7 [place] Comment on above: Performed By: #### P TT #### [facility] [address] [facility] [place] [address] Eosinophils/100 WBC (Bld) 0.8 % Normal [place] Comment on above: Performed By: #### P TT #### [facility] [address] [facility] [address] Erythrocyte distribution width (RBC) [Ratio] 14.4 % Normal 11.5-14.5 [place], [place] Comment on above: Performed By: #### P TT #### [facility] [address] [facility] [address] Hematocrit (Bld) [Volume fraction] 33.4 % Low 37.0-47.0 [place] Comment on above: Performed By: #### P TT #### [facility] [address] [facility] [address] Hemoglobin (Bld) [Mass/Vol] 11.0 g/dL Low 12.0-16.0 [place] Comment on above: Performed By: #### P TT #### [facility] [address] [facility] [address] Lymphocytes (Bld) [#/Vol] 1.5 10*3/uL Normal 1.0-4.8 [place] Comment on above: Performed By: #### P TT #### [facility] [address] [facility] [place] [address] Lymphocytes/100 WBC (Bld) 7.9 % Normal [place] Comment on above: Performed By: #### P TT #### [facility] [address] [place] [address] MCH (RBC) [Entitic mass] 29.4 pg Normal 27.0-31.3 [place] Comment on above: Performed By: #### P TT #### [facility] [address] [facility] [address] MCHC (RBC) [Mass/Vol] 32.9 % Low 33.0-37.0 [place] Comment on above: Performed By: #### P TT #### [facility] [address] [facility] [address] MCV (RBC) [Entitic vol] 89.4 fL Normal 82.0-100.0 [place] Comment on above: Performed By: #### P TT #### [facility] [address] [facility] [place] [place] [address] Monocytes (Bld) [#/Vol] 1.3 10*3/uL Critically high 0.2-0. 8 [place] Comment on above: Performed By: #### P TT #### [facility] [address] [facility] [address] Monocytes/100 WBC (Bld) 7.1 % Normal [place] Comment on above: Performed By: #### P TT #### [facility] [address] [facility] [address] Neutrophils/100 WBC (Bld) 83.3 % Normal [place] Comment on above: Performed By: #### P TT #### [facility] [address] [facility] [place] [address] Platelets (Bld) [#/Vol] 304 10*3/uL Normal 130-400 [place] Comment on above: Performed By: #### P TT #### [facility] [address] [place] [address] RBC (Bld) [#/Vol] 3.74 10*6/uL Low 4.20-5.40 [place] Comment on above: Performed By: #### P TT #### [facility] [address] [address] WBC (Bld) [#/Vol] 18.6 10*3/uL Critically high 4.8-10.8 [place] Comment on above: Performed By: #### P TT #### [facility] [address] [facility] [facility] [address] CBC auto differentialon 10-22 Interpretation and review of laboratory results Abnormal [place] Neutrophils Absolute 15.5 K/uL High 1.4 - 6 .5 K/uL [place] ECHO Complete 2D W Doppler W Coloron 11-16-2018 Transthoracic Echocardiography Report (TTE) Demographics Patient Name MERCY GANDHI Gender Female Patient Number [id number] Race Unknown Ethnicity Visit Number [id number] Room Number R238 Corporate ID Date of Study 11/16/2018 Referring Physician Niki Vazquez DO Number Date of 1935 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 Physician Cardiology Cain Quinonez MD [...] Gradient: 4.03 mmHg Estimated PASP: 40.86 mmHg [place] ED Velocity: 1.27 m/s LVOT Peak Velocity: [...] cm LVOT Diameter: 1.[address] 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 Physician Cardiology Cain Quinonez MD [...] Gradient: 4.03 mmHg Estimated PASP: 40.86 mmHg [place] ED Velocity: 1.27 m/s LVOT Peak Velocity: [...] Root: 2.35 cm LVOT Diameter: 1.65 cm [place] Microscopic Urinalysison Bacteria, UA Negative /HPF [place] Epi Cells 3-5 /HPF [place] Interpretation and review of laboratory results Abnormal [place] RBC (U) [#/Vol] 3-5 [facility]normal [facility] [place] Renal Epithelial, Urine 0-2 Abnormal /HPF [place] WBC, UA None seen [place] CAROTID ARTERY BILATERALo n 11-16-2018 [...] Damped resistive CCA decreased decreased resistive CCA [place], [place] Joseph, Sarahpo Incoming Radiant Results From [employer] - 11/16/2018 10:40 AM EDT Patient : [...] CCA decreased decreased resistive [facility] 1935 Age: 83 [...] and noncalcified plaque bilateral carotid arterial systems [facility] [place] DUP LOWER EXTREMITIES VAUGHN [...] De Souza MD 11/17/18 Final result Normal [facility] Urine Microscopicon 11-17-19 19 Bacteria LM.HPF (Urine sed) [#/Area] Negative Normal [facility] Comment on above: Performed By: #### P TT #### [facility] [address] [place] [address] Epithelial cells LM Ql (Urine sed) 3-5 Normal [facility] Comment on above: Performed By: #### P TT #### [facility] [address] [place] [address] RBC (U) [#/Vol] 3-5 Abnormal 0-2 [facility] Comment on above: Performed By: #### P TT #### [facility] [address] [place] [address] Urine Renal Epithelial 0-2 Abnormal [facility] Comment on above: Performed By: #### P TT #### [facility] [address] [place] [address] WBC (U) [#/Vol] None seen Normal 0-5 [facility] Comment on above: Performed By: #### P TT #### [facility] [address] [place] [address] XR CHEST PORTABLEon 11-17-19 19 Joseph, Chpo Incoming Radiant Results From [employer] - 11/16/2018 10:21 AM EDT EXAMINATION: XR CHEST PORTABLE CLINICAL HISTORY: fever . History of back surgery. COMPARISONS: None available. FINDINGS: Single AP portable view the chest obtained on November 15, 2018 at 2124 hours. The heart is not enlarged. Mediastinum is not widened. Calcified aorta is not dilated. Lungs are clear. The chest wall is unremarkable. CONCLUSION: NO ACUTE PROCESS [facility] EXAMINATION: XR CHEST PORTABLE CLINICAL HISTORY: fever . History of back surgery. COMPARISONS: None available. FINDINGS: Single AP portable view the chest obtained on November 15, 2018 at 2124 hours. The heart is not enlarged. Mediastinum is not widened. Calcified aorta is not dilated. Lungs are clear. The chest wall is unremarkable. CONCLUSION: NO ACUTE PROCESS [place] CBC Auto Differentialon 10-22 Anisocytosis Ql (Bld) 1+ [place] Bands Relative 4 % Low 5 - 11 % [place] Basophils (Bld) [#/Vol] 0.0 10*3/uL 0 - 0.2 K/u L [place] Basophils/100 WBC (Bld) 0.6 % [place] Eosinophils (Bld) [#/Vol] 0.0 10*3/uL 0 - 0.7 K/uL [place] Eosinophils/100 WBC (Bld) 0.9 % [place] Erythrocyte distribution width (RBC) [Ratio] 14.6 % High 11.5 - 14.5 % [place] Hematocrit (Bld) [Volume fraction] 33.3 % Low 37 - 47 % [place] Hemoglobin (Bld) [Mass/Vol] 10.9 g/dL Low 12 - 16 g/dL [place] Interpretation and review of laboratory results Abnormal [place] Lymphocytes (Bld) [#/Vol] 3.5 10*3/uL 1 - 4.8 K/uL [place] Lymphocytes/100 WBC (Bld) 17.0 % [place] MCH (RBC) [Entitic mass] 29.8 pg 27 - 31.3 p g [place] MCHC (RBC) [Mass/Vol] 32.9 % Low 33 - 37 % [place] MCV (RBC) [Entitic vol] 90.7 fL 82 - 100 fL [place] Microcytes 1+ [place] Monocytes (Bld) [#/Vol] 0.0 10*3/uL Low 0.2 - 0.8 K/uL [place] Monocytes/100 WBC (Bld) 7.7 % [place] Neutrophils Absolute 17.3 K/uL High 1.4 - 6 .5 K/uL [place] Neutrophils/100 WBC (Bld) 79.0 % [place] PLATELET SLIDE REVIEW Normal [place] Platelets (Bld) [#/Vol] 315 10*3/uL 130 - 400 K/uL [place] RBC (Bld) [#/Vol] 3.67 10*6/uL Low [place] WBC (Bld) [#/Vol] 20.8 10*3/uL High 4.8 - 10.8 K/uL [place] CBC With Platelet No Differe ntialon 11-15-2018 Erythrocyte distribution width (RBC) [Ratio] 14.5 % Normal 11.5-14.5 [facility] Comment on above: Performed By: #### P TT #### [facility] [address] [place] [address] Hematocrit (Bld) [Volume fraction] 36.9 % Low 37.0-47.0 [facility] Comment on above: Performed By: #### P TT #### [facility] [address] [place] [address] Hemoglobin (Bld) [Mass/Vol] 11.9 g/dL Low 12.0-16.0 [facility] Comment on above: Performed By: #### P TT #### [facility] [address] [place] [address] MCH (RBC) [Entitic mass] 29.4 pg Normal 27.0-31.3 [facility] Comment on above: Performed By: #### P TT #### [facility] [address] [place] [address] MCHC (RBC) [Mass/Vol] 32.3 % Low 33.0-37.0 [facility] Comment on above: Performed By: #### P TT #### [facility] [address] [place] [address] MCV (RBC) [Entitic vol] 91.1 fL Normal 82.0-100.0 [facility] Comment on above: Performed By: #### P TT #### [facility] [address] [place] [address] Platelets (Bld) [#/Vol] 341 10*3/uL Normal 130-400 [facility] Comment on above: Performed By: #### P TT #### [facility] [address] [place] [address] RBC (Bld) [#/Vol] 4.05 10*6/uL Low 4.20-5.40 [facility] Comment on above: Performed By: #### P TT #### [facility] [address] [place] [address] WBC (Bld) [#/Vol] 19.8 10*3/uL Critically high 4.8-10.8 [facility] Comment on above: Performed By: #### P TT #### [facility] [address] [place] [address] CBC With Platelet and Differ entialon 11-15-2018 Anisocytosis Ql (Bld) 1+ Normal [facility] Comment on above: Performed By: #### P TT #### [facility] [address] [place] [address] Bands 4 % Low 5-11 [facility] Comment on above: Performed By: #### P TT #### [facility] [address] [place] [address] Basophils (Bld) [#/Vol] 0.0 10*3/uL Normal 0.0-0.2 [facility] Comment on above: Performed By: #### P TT #### [facility] [address] [place] [address] Basophils/100 WBC (Bld) 0.6 % Normal [facility] Comment on above: Performed By: #### P TT #### [facility] [address] [place] [address] Eosinophils (Bld) [#/Vol] 0.0 10*3/uL Normal 0.0-0.7 [facility] Comment on above: Performed By: #### P TT #### [facility] [address] [place] [address] Eosinophils/100 WBC (Bld) 0.9 % Normal [facility] Comment on above: Performed By: #### P TT #### [facility] [address] [place] [address] Lymphocytes (Bld) [#/Vol] 3.5 10*3/uL Normal 1.0-4.8 [facility] Comment on above: Performed By: #### P TT #### [facility] [address] [place] [address] Lymphocytes/100 WBC (Bld) 17.0 % Normal [facility] Comment on above: Performed By: #### P TT #### [facility] [address] [place] [address] Microcytic 1+ Normal [facility] Comment on above: Performed By: #### P TT #### [facility] [address] [place] [address] Monocytes (Bld) [#/Vol] 0.0 10*3/uL Low 0.2-0.8 [facility] Comment on above: Performed By: #### P TT #### [facility] [address] [place] [address] Monocytes/100 WBC (Bld) 7.7 % Normal [facility] Comment on above: Performed By: #### P TT #### [facility] [address] [place] [address] Neutrophils (Bld) [#/Vol] 17.3 10*3/uL Critically high 1.4-6.5 [facility] Comment on above: Performed By: #### P TT #### [facility] [address] [place] [address] Neutrophils/100 WBC (Bld) 79.0 % Normal [facility] Comment on above: Performed By: #### P TT #### [facility] [address] [place] [address] Platelet Slide Review Normal Normal [facility] Comment on above: Performed By: #### P TT #### [facility] [address] [place] [address] Erythrocyte distribution width (RBC) [Ratio] 14.6 % Critically high 11.5-14.5 [facility] Comment on above: Performed By: #### P TT #### [facility] [address] [place] [address] Hematocrit (Bld) [Volume fraction] 33.3 % Low 37.0-47.0 [facility] Comment on above: Performed By: #### P TT #### [facility] [address] [place] [address] Hemoglobin (Bld) [Mass/Vol] 10.9 g/dL Low 12.0-16.0 [facility] Comment on above: Performed By: #### P TT #### [facility] [address] [place] [address] MCH (RBC) [Entitic mass] 29.8 pg Normal 27.0-31.3 [facility] Comment on above: Performed By: #### P TT #### [facility] [address] [place] [address] MCHC (RBC) [Mass/Vol] 32.9 % Low 33.0-37.0 [facility] Comment on above: Performed By: #### P TT #### [facility] [address] [place] [address] MCV (RBC) [Entitic vol] 90.7 fL Normal 82.0-100.0 [facility] Comment on above: Performed By: #### P TT #### [facility] [address] [place] [address] Platelets (Bld) [#/Vol] 315 10*3/uL Normal 130-400 [facility] Comment on above: Performed By: #### P TT #### [facility] [address] [place] [address] RBC (Bld) [#/Vol] 3.67 10*6/uL Low 4.20-5.40 [facility] Comment on above: Performed By: #### P TT #### [facility] [address] [place] [address] WBC (Bld) [#/Vol] 20.8 10*3/uL Critically high 4.8-10.8 [facility] Comment on above: Performed By: #### P TT #### [facility] [address] [place] [address] Comprehensive Metabolic Pane l reflex Mgon 11-15-2018 Albumin [Mass/Vol] 3.3 g/dL Low 3.5-4.6 [facility] Comment on above: Performed By: #### P TT #### [facility] [address] [place] [address] ALP [Catalytic activity/Vol] 71 U/L Normal 40-130 [facility] Comment on above: Performed By: #### P TT #### [facility] [address] [place] [address] ALT [Catalytic activity/Vol] 12 U/L Normal 0-33 [facility] Comment on above: Performed By: #### P TT #### [facility] [address] [place] [address] Anion gap [Moles/Vol] 11 mmol/L Normal 9-15 [facility] Comment on above: Performed By: #### P TT #### [facility] [address] [place] [address] AST [Catalytic activity/Vol] 28 U/L Normal 0-35 [facility] Comment on above: Performed By: #### P TT #### [facility] [address] [place] [address] Bilirubin [Mass/Vol] 0.4 mg/dL Normal 0.2-0.7 [facility] Comment on above: Performed By: #### P TT #### [facility] [address] [place] [address] Calcium [Mass/Vol] 9.1 mg/dL Normal 8.5-9.9 [facility] Comment on above: Performed By: #### P TT #### [facility] [address] [place] [address] Chloride [Moles/Vol] 98 mmol/L Normal 95-107 [facility] Comment on above: Performed By: #### P TT #### [facility] [address] [place] [address] CO2 [Moles/Vol] 27 mmol/L Normal 20-31 [facility] Comment on above: Performed By: #### P TT #### [facility] [address] [place] [address] Creatinine [Mass/Vol] 0.59 mg/dL Normal 0.50-0.90 [facility] Comment on above: Performed By: #### P TT #### [facility] [address] [place] [address] GFR/1.73 sq M predicted among blacks MDRD (S/P/Bld) [Vol rate/Area] mL/min/{1.73_m2} Normal >60 [facility] Comment on above: Result Comment: >60 mL/min/1.73m2 EGFR, calc. for ages 18 and older using the MDRD formula (not corrected for weight), is valid for stable renal function. Performed By: #### P TT #### [facility] [address] [place] [address] GFR/1.73 sq M.predicted MDRD (S/P/Bld) [Vol rate/Area] mL/min/{1.73_m2} Normal >60 [facility] Comment on above: Result Comment: >60 mL/min/1.73m2 EGFR, calc. for ages 18 and older using the MDRD formula (not corrected for weight), is valid for stable renal function. Performed By: #### P TT #### [facility] [address] [place] [address] Globulin (S) [Mass/Vol] 3.2 g/dL Normal 2.3-3.5 [facility] Comment on above: Performed By: #### P TT #### [facility] [address] [place] [address] Glucose [Mass/Vol] 123 mg/dL Critically high 70-99 [facility] Comment on above: Performed By: #### P TT #### [facility] [address] [place] [address] Potassium reflex Mg 3.8 mEq/L Normal 3.4-4.9 [facility] Comment on above: Performed By: #### P TT #### [facility] [address] [place] [address] Protein [Mass/Vol] 6.5 g/dL Normal 6.3-8.0 [facility] Comment on above: Performed By: #### P TT #### [facility] [address] [place] [address] Sodium [Moles/Vol] 136 mmol/L Normal 135-144 [facility] Comment on above: Performed By: #### P TT #### [facility] [address] [place] [address] Urea nitrogen [Mass/Vol] 6 mg/dL Low 8-23 [facility] Comment on above: Performed By: #### P TT #### [facility] [address] [place] [address] Culture, Blood 2on 9 Culture, Blood 2 ORDERED BY: ADDY COKER SOURCE: Blood COLLECTED: 11/15/18 16:37 ANTIBIOTICS AT DI.: RECEIVED : 11/15/18 16:42 Culture, Blood 2 FINAL 11/20/18 18:15 No growth after 5 days of incubation. Normal [facility] Comment on above: Performed By: #### C MP #### [facility] [address] [place] [address] Culture, Urineon 11-15-2018 Culture, Urine ORDERED BY: ADDY COKER SOURCE: Urine Clean Catch COLLECTED: 11/15/18 19:05 ANTIBIOTICS AT DI.: RECEIVED : 11/15/18 19:05 Culture, Urine FINAL 11/17/18 07:28 No growth 24 hours Normal [facility] Comment on above: Performed By: #### C MP #### [facility] [address] [place] [address] URINE RT REFLEX TO CULTUREon 11-15-2018 Bilirubin Urine Negative Negative [place] Blood, Urine TRACE Abnormal Negative [place], [place] Clarity, UA Clear Clear [place] Color, UA Yellow Straw/Yellow [place] Glucose, Ur Negative Negative mg/dL [place] Interpretation and review of laboratory results Abnormal [place] Ketones Ql (U) Negative Negative mg/dL [place] Leukocyte esterase Test strip Ql (U) Negative Negative [place] Nitrite, Urine Negative Negative [place] pH, UA 7.0 [place] Protein (U) [Mass/Vol] 30 mg/dL Abnormal Negative [place], [place] Specific [place], UA 1.014 [place] Urine Reflex to Culture YES [place] Urobilinogen, Urine 0.2 <2.0 E.U./dL [place] CAROTID ARTERY BILATERALo n 11-15-2018 [...] Mohsen Childers MD 11/16/18 Final result Normal [facility] Urinalysis, reflex to cultur kendall 11-15-2018 Bilirubin Ql (U) Negative Normal Negative [facility] Comment on above: Performed By: #### P TT #### [facility] [address] [place] [address] Clarity (U) Clear Normal Clear [facility] Comment on above: Performed By: #### P TT #### [facility] [address] [place] [address] Color (U) Yellow Normal Straw/Terry [facility] Comment on above: Performed By: #### P TT #### [facility] [address] [place] [address] Glucose Ql (U) Negative Normal Negative [facility] Comment on above: Performed By: #### P TT #### [facility] [address] [place] [address] Hemoglobin Ql (U) TRACE Abnormal Negative [facility] Comment on above: Performed By: #### P TT #### [facility] [address] [place] [address] Ketones Ql (U) Negative Normal Negative [facility] Comment on above: Performed By: #### P TT #### [facility] [address] [place] [address] Leukocyte esterase Test strip Ql (U) Negative Normal Negative [facility] Comment on above: Performed By: #### P TT #### [facility] [address] [place] [address] Nitrite Ql (U) Negative Normal Negative [facility] Comment on above: Performed By: #### P TT #### [facility] [address] [place] [address] pH (U) 7.0 [pH] Normal 5.0-9.0 [facility] Comment on above: Performed By: #### P TT #### [facility] [address] [place] [address] Protein Ql (U) 30 mg/dL Abnormal Negative [facility] Comment on above: Performed By: #### P TT #### [facility] [address] [place] [address] Specific gravity (U) [Rel density] 1.014 Normal 1.005-1.03 [facility] Comment on above: Performed By: #### P TT #### [facility] [address] [place] [address] Urine Reflexed to Culture YES Normal [facility] Comment on above: Performed By: #### P TT #### [facility] [address] [place] [address] Urobilinogen Qn (U) 0.2 {Juan'U}/dL Normal < 2.0 [facility] Comment on above: Performed By: #### P TT #### [facility] [address] [place] [address] XR CHEST PORTABLEon 11-16-19 XR CHEST PORTABLE [...] Interpreted by: Pearl Varghese MD Signed by: Peral Varghese MD 11/16/18 Final result Normal [facility] Basic Metabolic Panel Reflex Mgon 11-14-2018 Anion gap [Moles/Vol] 10 mmol/L Normal 9-15 [facility] Comment on above: Performed By: #### P T #### [facility] [address] [place] [address] Calcium [Mass/Vol] 8.4 mg/dL Low 8.5-9.9 [facility] Comment on above: Performed By: #### P T #### [facility] [address] [place] [address] Chloride [Moles/Vol] 100 mmol/L Normal 95-107 [facility] Comment on above: Performed By: #### P T #### [facility] [address] [place] [address] CO2 [Moles/Vol] 25 mmol/L Normal 20-31 [facility] Comment on above: Performed By: #### P T #### [facility] [address] [place] [address] Creatinine [Mass/Vol] 0.66 mg/dL Normal 0.50-0.90 [facility] Comment on above: Performed By: #### P T #### [facility] [address] [place] [address] GFR/1.73 sq M predicted among blacks MDRD (S/P/Bld) [Vol rate/Area] mL/min/{1.73_m2} Normal >60 [facility] Comment on above: Result Comment: >60 mL/min/1.73m2 EGFR, calc. for ages 18 and older using the MDRD formula (not corrected for weight), is valid for stable renal function. Performed By: #### P T #### [facility] [address] [place] [address] GFR/1.73 sq M.predicted MDRD (S/P/Bld) [Vol rate/Area] mL/min/{1.73_m2} Normal >60 [facility] Comment on above: Result Comment: >60 mL/min/1.73m2 EGFR, calc. for ages 18 and older using the MDRD formula (not corrected for weight), is valid for stable renal function. Performed By: #### P T #### [facility] [address] [place] [address] Glucose [Mass/Vol] 144 mg/dL Critically high 70-99 [facility] Comment on above: Performed By: #### P T #### [facility] [address] [place] [address] Potassium reflex Mg 4.1 mEq/L Normal 3.4-4.9 [facility] Comment on above: Performed By: #### P T #### [facility] [address] [place] [address] Sodium [Moles/Vol] 135 mmol/L Normal 135-144 [facility] Comment on above: Performed By: #### P T #### [facility] [address] [place] [address] Urea nitrogen [Mass/Vol] 6 mg/dL Low 8-23 [facility] Comment on above: Performed By: #### P T #### [facility] [address] [place] [place] [address] CBC With Platelet and Differ entialon 11-14-2018 Basophils (Bld) [#/Vol] 0.1 10*3/uL Normal 0.0-0.2 [facility] Comment on above: Performed By: #### P T #### [facility] [address] [place] [address] Basophils/100 WBC (Bld) 0.5 % Normal [facility] Comment on above: Performed By: #### P T #### [facility] [address] [place] [place] [address] Eosinophils (Bld) [#/Vol] 0.1 10*3/uL Normal 0.0-0.7 [facility] Comment on above: Performed By: #### P T #### [facility] [address] [place] [address] Eosinophils/100 WBC (Bld) 0.8 % Normal [facility] Comment on above: Performed By: #### P T #### [facility] [address] [place] [address] Erythrocyte distribution width (RBC) [Ratio] 14.1 % Normal 11.5-14.5 [facility] Comment on above: Performed By: #### P T #### [facility] [address] [place] [address] Hematocrit (Bld) [Volume fraction] 35.4 % Low 37.0-47.0 [facility] Comment on above: Performed By: #### P T #### [facility] [address] [place] [address] Hemoglobin (Bld) [Mass/Vol] 11.7 g/dL Low 12.0-16.0 [facility] Comment on above: Performed By: #### P T #### [facility] [address] [place] [address] Lymphocytes (Bld) [#/Vol] 2.7 10*3/uL Normal 1.0-4.8 [facility] Comment on above: Performed By: #### P T #### [facility] [address] [place] [address] Lymphocytes/100 WBC (Bld) 15.7 % Normal [facility] Comment on above: Performed By: #### P T #### [facility] [address] [place] [address] MCH (RBC) [Entitic mass] 29.7 pg Normal 27.0-31.3 [facility] Comment on above: Performed By: #### P T #### [facility] [address] [place] [address] MCHC (RBC) [Mass/Vol] 33.1 % Normal 33.0-37.0 [facility] Comment on above: Performed By: #### P T #### [facility] [address] [place] [address] MCV (RBC) [Entitic vol] 89.6 fL Normal 82.0-100.0 [facility] Comment on above: Performed By: #### P T #### [facility] [address] [place] [address] Monocytes (Bld) [#/Vol] 1.4 10*3/uL Critically high 0.2-0. 8 [facility] Comment on above: Performed By: #### P T #### [facility] [address] [place] [place] [address] Monocytes/100 WBC (Bld) 7.9 % Normal [facility] Comment on above: Performed By: #### P T #### [facility] [address] [place] [address] Neutrophils (Bld) [#/Vol] 12.8 10*3/uL Critically high 1.4-6.5 [facility] Comment on above: Performed By: #### P T #### [facility] [address] [place] [address] Neutrophils/100 WBC (Bld) 75.1 % Normal [facility] Comment on above: Performed By: #### P T #### [facility] [address] [place] [address] Platelets (Bld) [#/Vol] 345 10*3/uL Normal 130-400 [facility] Comment on above: Performed By: #### P T #### [facility] [address] [place] [address] RBC (Bld) [#/Vol] 3.95 10*6/uL Low 4.20-5.40 [facility] Comment on above: Performed By: #### P T #### [facility] [address] [place] [address] WBC (Bld) [#/Vol] 17.0 10*3/uL Critically high 4.8-10.8 [facility] Comment on above: Performed By: #### P T #### [facility] [address] [place] [address] POCT Glucoseon 11-14-2018 Glucose [Mass/Vol] 116 mg/dL Critically high 60-115 [facility] Comment on above: Performed By: #### P T #### [facility] [address] [place] [address] POC Performed on ACCU-CHEK Normal [facility] Comment on above: Performed By: #### P T #### [facility] [address] [place] [address] XR LUMBAR SPINE (2-3 VIEWS)o n 11-14-2018 [...] Mohsen Childers MD 11/14/18 Final result Normal [facility] Basic Metabolic Panel Reflex Mgon 11-13-2018 Anion gap [Moles/Vol] 13 mmol/L Normal 9-15 [facility] Comment on above: Performed By: #### P T #### [facility] [address] [place] [address] Calcium [Mass/Vol] 9.0 mg/dL Normal 8.5-9.9 [facility] Comment on above: Performed By: #### P T #### [facility] [address] [place] [address] Chloride [Moles/Vol] 101 mmol/L Normal 95-107 [facility] Comment on above: Performed By: #### P T #### [facility] [address] [place] [address] CO2 [Moles/Vol] 24 mmol/L Normal 20-31 [facility] Comment on above: Performed By: #### P T #### [facility] [address] [place] [address] Creatinine [Mass/Vol] 0.62 mg/dL Normal 0.50-0.90 [facility] Comment on above: Performed By: #### P T #### [facility] [address] [place] [address] GFR/1.73 sq M predicted among blacks MDRD (S/P/Bld) [Vol rate/Area] mL/min/{1.73_m2} Normal >60 [facility] Comment on above: Result Comment: >60 mL/min/1.73m2 EGFR, calc. for ages 18 and older using the MDRD formula (not corrected for weight), is valid for stable renal function. Performed By: #### P T #### [facility] [address] [place] [address] GFR/1.73 sq M.predicted MDRD (S/P/Bld) [Vol rate/Area] mL/min/{1.73_m2} Normal >60 [facility] Comment on above: Result Comment: >60 mL/min/1.73m2 EGFR, calc. for ages 18 and older using the MDRD formula (not corrected for weight), is valid for stable renal function. Performed By: #### P T #### [facility] [address] [place] [address] Glucose [Mass/Vol] 136 mg/dL Critically high 70-99 [facility] Comment on above: Performed By: #### P T #### [facility] [address] [place] [address] Potassium reflex Mg 3.6 mEq/L Normal 3.4-4.9 [facility] Comment on above: Performed By: #### P T #### [facility] [address] [place] [address] Sodium [Moles/Vol] 138 mmol/L Normal 135-144 [facility] Comment on above: Performed By: #### P T #### [facility] [address] [place] [address] Urea nitrogen [Mass/Vol] 7 mg/dL Low 8-23 [facility] Comment on above: Performed By: #### P T #### [facility] [address] [place] [address] CBC With Platelet No Differe ntialon 11-13-2018 Erythrocyte distribution width (RBC) [Ratio] 14.2 % Normal 11.5-14.5 [facility] Comment on above: Performed By: #### P T #### [facility] [address] [place] [address] Hematocrit (Bld) [Volume fraction] 40.3 % Normal 37.0-47.0 [facility] Comment on above: Performed By: #### P T #### [facility] [address] [place] [address] Hemoglobin (Bld) [Mass/Vol] 13.1 g/dL Normal 12.0-16.0 [facility] Comment on above: Performed By: #### P T #### [facility] [address] [place] [address] MCH (RBC) [Entitic mass] 29.1 pg Normal 27.0-31.3 [facility] Comment on above: Performed By: #### P T #### [facility] [address] [place] [address] MCHC (RBC) [Mass/Vol] 32.4 % Low 33.0-37.0 [facility] Comment on above: Performed By: #### P T #### [facility] [address] [place] [address] MCV (RBC) [Entitic vol] 89.9 fL Normal 82.0-100.0 [facility] Comment on above: Performed By: #### P T #### [facility] [address] [place] [place] [address] Platelets (Bld) [#/Vol] 394 10*3/uL Normal 130-400 [facility] Comment on above: Performed By: #### P T #### [facility] [address] [place] [address] RBC (Bld) [#/Vol] 4.48 10*6/uL Normal 4.20-5.40 [facility] Comment on above: Performed By: #### P T #### [facility] [address] [place] [address] WBC (Bld) [#/Vol] 11.8 10*3/uL Critically high 4.8-10.8 [facility] Comment on above: Performed By: #### P T #### [facility] [address] [facility] [place] [address] Culture, MRSA Screenon 11-13 Culture, MRSA Screen ORDERED BY: BRENNAN HERRON SOURCE: Nares COLLECTED: 11/13/18 09:29 ANTIBIOTICS AT DI.: RECEIVED : 11/13/18 09:29 Culture, MRSA Screen FINAL 11/14/18 08:02 No MRSA isolated Normal [facility] Comment on above: Performed By: #### P T #### [facility] [address] [facility] [place] [address] FLUORO FOR SURGICAL PROCEDUR ESon 11-13-2018 FLUORO [...] Mohsen Childers MD 11/13/18 Final result Normal [facility] Surgical Specimenon 11-14-19 Surgical Specimen [facility] [address] [place] [address] FINAL SURGICAL PATHOLOGY REPORT Patient Name: HIRAM MADRID Accession No: [id number] Age Sex: 1935 Location: [facility] [id number] Account No: [id number] Collected: 11/13/2018 Med Rec No: [id number] Received: 11/14/2018 Attend Phys: LENNY CORRAL Completed: [...] two cassettes after brief decalcification. UVALDO/NIKKY CPT: 77714 X1 26026 X1 STANLEY GRAFF M.D. 11/15/2018 Electronically signed out by Page 1 of 1 [facility] Comment on above: Performed By: #### P TT #### [facility] [address] [place] [address] Type and Screen Capture 3 sc rn cellon 11-13-2018 Type and Screen Capture 3 scrn cell PATIENT: MERCY GANDHI LOC: TATIANNA SUAREZ NON BILL# : [id number] : 1935 SEX: F ORDERED BY: GOPAL AMIN ORDERED : 11/13/2018 08:10 COLLECTED: 11/13/2018 09:24 ORDER : [id number] RECEIVED : 11/13/2018 09:24 TEST NAME RESULT UNITS RANGES ABN [place] ST ABORH Capture A POS F Antibody 3 Cell Scrn Captu NEG F Normal [facility] Comment on above: Performed By: #### T S3C #### [facility] [address] [place] [address] XR SPINE ENTIRE (2-3 VIEWS)o n 11-13-2018 [...] Mohsen Childers MD 11/13/18 Final result Normal [facility] MRI LUMBAR SPINE W WO CONTRA STon [...] UNDERLYING PATHOLOGY OR RECENT INJURY. [facility] [place], [place] Joseph, Chpo Incoming Radiant Results From xzoops/LaunchPoint - 11/05/2018 3:07 PM EDT EXAMINATION: MRI [...] SIGNS OF UNDERLYING PATHOLOGY OR RECENT INJURY. [place], [place] MRI LUMBAR SPINE W WO CONTRAST [...] Pearl Varghese MD 11/05/18 Final result Normal [facility] Otheron 11-05-2018 Joseph, po Incoming Radiant Results From xzoops/Kextils - 11/05/2018 1:21 PM EDT EXAMINATION: XR [...] AND POSTOPERATIVE FINDINGS, WITHOUT ACUTE SUPERIMPOSED ABNORMALITY. [place], [place] EXAMINATION: XR LUMBAR SPINE (MIN 4 [...] AND POSTOPERATIVE FINDINGS, WITHOUT ACUTE SUPERIMPOSED ABNORMALITY. [place] XR CHEST (2 VW)on 11-05-2018 XR [...] Pearl Varghese MD 11/05/18 Final result Normal [facility] XR LUMBAR SPINE (MIN 4 VIEWS )on [...] Pearl Varghese MD 11/05/18 Final result Normal [facility] APTTon 11-04-2018 aPTT Coag (Bld) [Time] 27.[address] [facility] [place], [place] Comment on above: Effective 09/06/2018: Please note methodology and/or reference ranges have changed. aPTT - Heparin Therapeutic Range: 74.0 - 106 seconds C-Reactive Proteinon 019 CRP [Mass/Vol] 1.3 mg/L Normal 0.0-5.0 [facility] Comment on above: Performed By: #### C RP #### [facility] [address] [place] [address] CRP [Mass/Vol] 1.3 mg/L 0 - 5 mg/L [place], [place] CBC Auto Differentialon 10-21 Basophils (Bld) [#/Vol] 0.1 10*3/uL 0 - 0.2 K/u L [place] Basophils/100 WBC (Bld) 1.1 % [place], [place] Eosinophils (Bld) [#/Vol] 0.2 10*3/uL 0 - 0.7 K/uL [place] Eosinophils/100 WBC (Bld) 1.3 % [place] Erythrocyte distribution width (RBC) [Ratio] 13.9 % 11.5 - 14.5 % [place] Hematocrit (Bld) [Volume fraction] 41.3 % 37 - 47 % [place] Hemoglobin (Bld) [Mass/Vol] 14.3 g/dL 12 - 16 g/dL [place] Interpretation and review of laboratory results Abnormal [place] Lymphocytes (Bld) [#/Vol] 3.5 10*3/uL 1 - 4.8 K/uL [place] Lymphocytes/100 WBC (Bld) 28.2 % [place] MCH (RBC) [Entitic mass] 30.5 pg 27 - 31.3 p g [place] MCHC (RBC) [Mass/Vol] 34.6 % 33 - 37 % [place], [place] MCV (RBC) [Entitic vol] 88.0 fL 82 - 100 fL [place] Monocytes (Bld) [#/Vol] 0.8 10*3/uL 0.2 - 0.8 K/uL [place] Monocytes/100 WBC (Bld) 6.8 % [place] Neutrophils Absolute 7.7 K/uL High 1.4 - 6 .5 K/uL [place] Neutrophils/100 WBC (Bld) 62.6 % [place] Platelets (Bld) [#/Vol] 435 10*3/uL High 130 - 400 K/uL [place] RBC (Bld) [#/Vol] 4.69 10*6/uL [place] WBC (Bld) [#/Vol] 12.4 10*3/uL High 4.8 - 10.8 K/uL [place] CBC With Platelet and Differ entialon 11-04-2018 Basophils (Bld) [#/Vol] 0.1 10*3/uL Normal 0.0-0.2 [facility] Comment on above: Performed By: #### C BCWD #### [facility] [address] [place] [address] Basophils/100 WBC (Bld) 1.1 % Normal [facility] Comment on above: Performed By: #### C BCWD #### [facility] [address] [place] [address] Eosinophils (Bld) [#/Vol] 0.2 10*3/uL Normal 0.0-0.7 [facility] Comment on above: Performed By: #### C BCWD #### [facility] [address] [place] [address] Eosinophils/100 WBC (Bld) 1.3 % Normal [facility] Comment on above: Performed By: #### C BCWD #### [facility] [address] [place] [address] Erythrocyte distribution width (RBC) [Ratio] 13.9 % Normal 11.5-14.5 [facility] Comment on above: Performed By: #### C BCWD #### [facility] [address] [place] [address] Hematocrit (Bld) [Volume fraction] 41.3 % Normal 37.0-47.0 [facility] Comment on above: Performed By: #### C BCWD #### [facility] [address] [place] [address] Hemoglobin (Bld) [Mass/Vol] 14.3 g/dL Normal 12.0-16.0 [facility] Comment on above: Performed By: #### C BCWD #### [facility] [address] [place] [address] Lymphocytes (Bld) [#/Vol] 3.5 10*3/uL Normal 1.0-4.8 [facility] Comment on above: Performed By: #### C BCWD #### [facility] [address] [place] [address] Lymphocytes/100 WBC (Bld) 28.2 % Normal [facility] Comment on above: Performed By: #### C BCWD #### [facility] [address] [place] [address] MCH (RBC) [Entitic mass] 30.5 pg Normal 27.0-31.3 [facility] Comment on above: Performed By: #### C BCWD #### [facility] [address] [place] [address] MCHC (RBC) [Mass/Vol] 34.6 % Normal 33.0-37.0 [facility] Comment on above: Performed By: #### C BCWD #### [facility] [address] [place] [address] MCV (RBC) [Entitic vol] 88.0 fL Normal 82.0-100.0 [facility] Comment on above: Performed By: #### C BCWD #### [facility] [address] [place] [address] Monocytes (Bld) [#/Vol] 0.8 10*3/uL Normal 0.2-0.8 [facility] Comment on above: Performed By: #### C BCWD #### [facility] [address] [place] [address] Monocytes/100 WBC (Bld) 6.8 % Normal [facility] Comment on above: Performed By: #### C BCWD #### [facility] [address] [place] [address] Neutrophils (Bld) [#/Vol] 7.7 10*3/uL Critically high 1.4-6.5 [facility] Comment on above: Performed By: #### C BCWD #### [facility] [address] [place] [address] Neutrophils/100 WBC (Bld) 62.6 % Normal [facility] Comment on above: Performed By: #### C BCWD #### [facility] [address] [place] [address] Platelets (Bld) [#/Vol] 435 10*3/uL Critically high 130-40 0 [facility] Comment on above: Performed By: #### C BCWD #### [facility] [address] [place] [address] RBC (Bld) [#/Vol] 4.69 10*6/uL Normal 4.20-5.40 [facility] [facility] Comment on above: Performed By: #### C BCWD #### [facility] [address] [place] [address] WBC (Bld) [#/Vol] 12.4 10*3/uL Critically high 4.8-10.8 [facility] Comment on above: Performed By: #### C BCWD #### [facility] [address] [place] [address] Comprehensive Metabolic Pane carlos 11-04-2018 Anion gap [Moles/Vol] 14 mmol/L Normal 9-15 [facility] Comment on above: Order Comment: CALL Graf LCED tel. [phone], Potassium results called to and read back by onofre Millan RN, 11/04/2018 16:24, by WEBAM Performed By: #### C MP #### [facility] [address] [place] [address] Bilirubin [Mass/Vol] 0.4 mg/dL Normal 0.2-0.7 [facility] Comment on above: Order Comment: CALL Graf LCED tel. [phone], Potassium results called to and read back by onofre Millan RN, 11/04/2018 16:24, by WEBAM Performed By: #### C MP #### [facility] [address] [place] [address] GFR/1.73 sq M predicted among blacks MDRD (S/P/Bld) [Vol rate/Area] mL/min/{1.73_m2} Normal >60 [facility] Comment on above: Order Comment: CALL Graf LCED tel. [phone], Potassium results called to and read back by onofre Millan RN, 11/04/2018 16:24, by WEBAM Result Comment: >60 mL/min/1.73m2 EGFR, calc. for ages 18 and older using the MDRD formula (not corrected for weight), is valid for stable renal function. Performed By: #### C MP #### [facility] [address] [place] [address] GFR/1.73 sq M.predicted MDRD (S/P/Bld) [Vol rate/Area] mL/min/{1.73_m2} Normal >60 [facility] Comment on above: Order Comment: CALL Graf LCED tel. [phone], Potassium results called to and read back by onofre Millan RN, 11/04/2018 16:24, by WEBAM Result Comment: >60 mL/min/1.73m2 EGFR, calc. for ages 18 and older using the MDRD formula (not corrected for weight), is valid for stable renal function. Performed By: #### C MP #### [facility] [address] [place] [address] Albumin [Mass/Vol] 4.5 g/dL Normal 3.5-4.6 [facility], [place] Comment on above: Order Comment: CALL Graf LCED tel. [phone], Potassium results called to and read back by onofre Millan RN, 11/04/2018 16:24, by WEBAM Performed By: #### C MP #### [facility] [address] [place] [address] ALP [Catalytic activity/Vol] 76 U/L Normal 40-130 [facility], [place] Comment on above: Order Comment: CALL Graf LCED tel. [phone], Potassium results called to and read back by onofre Millan RN, 11/04/2018 16:24, by WEBAM Performed By: #### C MP #### [facility] [address] [place] [address] ALT [Catalytic activity/Vol] 15 U/L Normal 0-33 [place], [place] Comment on above: Order Comment: CALL Graf LCED tel. [phone], Potassium results called to and read back by onofre Millan RN, 11/04/2018 16:24, by WEBAM Performed By: #### C MP #### [facility] [address] [place] [address] AST [Catalytic activity/Vol] 20 U/L Normal 0-35 [place] Comment on above: Order Comment: CALL Graf LCED tel. [phone], Potassium results called to and read back by onofre Millan RN, 11/04/2018 16:24, by WEBAM Performed By: #### C MP #### [facility] [address] [facility] [place] [address] Calcium [Mass/Vol] 9.9 mg/dL Normal 8.5-9.9 [place] Comment on above: Order Comment: CALL Graf LCED tel. [phone], Potassium results called to and read back by onofre Millan RN, 11/04/2018 16:24, by WEBAM Performed By: #### C MP #### [facility] [address] [place] [address] Chloride [Moles/Vol] 96 mmol/L Normal 95-107 [place], [place] Comment on above: Order Comment: CALL Graf LCED tel. [phone], Potassium results called to and read back by onofre Millan RN, 11/04/2018 16:24, by WEBAM Performed By: #### C MP #### [facility] [address] [facility] [place] [address] CO2 [Moles/Vol] 24 mmol/L Normal 20-31 [place], [place] Comment on above: Order Comment: CALL Graf LCED tel. [phone], Potassium results called to and read back by onofre Millan RN, 11/04/2018 16:24, by WEBAM Performed By: #### C MP #### [facility] [address] [facility] [place] [address] Creatinine [Mass/Vol] 0.67 mg/dL Normal 0.50-0.90 [place] Comment on above: Order Comment: CALL Graf LCED tel. [phone], Potassium results called to and read back by onofre Millan RN, 11/04/2018 16:24, by WEBAM Performed By: #### C MP #### [facility] [address] [facility] [place] [address] Globulin (S) [Mass/Vol] 2.8 g/dL Normal 2.3-3.5 [place], [place] Comment on above: Order Comment: CALL Graf LCED tel. [phone], Potassium results called to and read back by onofre Millan RN, 11/04/2018 16:24, by WEBAM Performed By: #### C MP #### [facility] [address] [facility] [place] [address] Glucose [Mass/Vol] 109 mg/dL Critically high 70-99 [place], [place] Comment on above: Order Comment: CALL Graf LCED tel. [phone], Potassium results called to and read back by onofre Millan RN, 11/04/2018 16:24, by WEBAM Performed By: #### C MP #### [facility] [address] [facility] [place] [place] [address] Potassium [Moles/Vol] 3.0 mmol/L Critically low 3.4-4.9 [place] Comment on above: Order Comment: CALL Graf LCED tel. [phone], Potassium results called to and read back by onofre Millan RN, 11/04/2018 16:24, by WEBAM Performed By: #### C MP #### [facility] [address] [place] [address] Protein [Mass/Vol] 7.3 g/dL Normal 6.3-8.0 [place] Comment on above: Order Comment: CALL Graf LCED tel. [phone], Potassium results called to and read back by onofre Millan RN, 11/04/2018 16:24, by WEBAM Performed By: #### C MP #### [facility] [address] [facility] [address] Sodium [Moles/Vol] 134 mmol/L Low 135-144 [place] Comment on above: Order Comment: CALL Graf LCED tel. [phone], Potassium results called to and read back by onofre Millan RN, 11/04/2018 16:24, by WEBAM Performed By: #### C MP #### [facility] [address] [facility] [address] Urea nitrogen [Mass/Vol] 8 mg/dL Normal 8-23 [place] Comment on above: Order Comment: CALL Graf LCED tel. [phone], Potassium results called to and read back by onofre Millan RN, 11/04/2018 16:24, by WEBAM Performed By: #### C MP #### [facility] [address] [facility] [address] Anion gap [Moles/Vol] 14 mmol/L [place] Bilirubin Ql (U) 0.4 mg/dL 0.2 - 0.7 mg/dL [place] GFR >60.0 >60 [place] Comment on above: >60 mL/min/1.73m2 EG FR, calc. for ages 18 and older using the MDRD formula (not corrected for weight), is valid for stable renal function. GFR Non- >60.0 >60 [place] Comment on above: >60 mL/min/1.73m2 EG FR, calc. for ages 18 and older using the MDRD formula (not corrected for weight), is valid for stable renal function. Interpretation and review of laboratory results Abnormal [place] Potassium [Moles/Vol] CALL Graf LCED tel . [phone], Potassium results called to and read back by onofre Millan RN, 11/04/2018 16:24, by TAMMY [place] Partial Thromboplastin Timeo n 11-04-2018 aPTT Coag (Bld) [Time] 27.9 s Normal 24.4-36.8 [facility] Comment on above: Result Comment: Effe ctive 09/06/2018: Please note methodology and/or reference ranges have changed. aPTT - Heparin Therapeutic Range: 74.0 - 106 seconds Performed By: #### P TT #### [facility] [address] [facility] [address] Prothrombin Timeon 9 INR Coag (PPP) [Relative time] 0.9 {INR} Normal [facility] Comment on above: Result Comment: Warf camden Therapy INR Therapeutic: 2.0-3.0 With Mechanical Valve: >2.5 Low-intensity Therapeutic Range: 1.5-2.0 Mod-intensity Therapeutic Range: 2.0-3.0 High-intensity Therapeutic Range: 2.5-3.5 HIgh-intensity Therapeutic Range: 3.0-4.0 Common Critical/Alarm Value: 5.0 Common Upper Limit Reported: 10.0 Effective 08/30/2018: Please note methodology and/or reference ranges have changed. Performed By: #### P T #### [facility] [address] [facility] [address] PT Coag (PPP) [Time] 12.1 s Low 12.3-14.9 [facility] Comment on above: Result Comment: Effe ctive 08/30/18 Please note methodology and/or reference ranges have changed. Performed By: #### P T #### [facility] [address] [facility] [address] Protime-INRon 11-04-2018 INR Coag (PPP) [Relative time] 0.9 {INR} [place] Comment on above: Warfarin Therapy INR Therapeutic: 2.0-3.0 With Mechanical Valve: >2.5 Low-intensity Therapeutic Range: 1.5-2.0 Mod-intensity Therapeutic Range: 2.0-3.0 High-intensity Therapeutic Range: 2.5-3.5 HIgh-intensity Therapeutic Range: 3.0-4.0 Common Critical/Alarm Value: 5.0 Common Upper Limit Reported: 10.0 Effective 08/30/2018: Please note methodology and/or reference ranges have changed. Interpretation and review of laboratory results Abnormal [place] PT Coag (PPP) [Time] 12.1 s Low [place] Comment on above: Effective 08/30/18 Please note methodology and/or reference ranges have changed. Sedimentation Rateon 019 Sedimentation Rate 12 mm Normal 0-30 [facility] Comment on above: Performed By: #### E SR #### [facility] [address] [place] [address] Sed Rate 12 mm 0 - 30 mm [place], [place] Vital Signs Date Time Vital Sign Value Performing Clinician Ivonne ledesma 05-03-2023 14:21-0400 Blood Pressure Location Turner DOSS [facility] 05-03-2023 14:21-0400 Diastolic blood pressure 82 mm[Hg] Turner DOSS [facility] 05-03-2023 14:21-0400 Heart rate 76 /min Turner DOSS [facility] 05-03-2023 14:21-0400 Respiratory rate 16 /min Turner DOSS [facility] 05-03-2023 14:21-0400 Systolic blood pressure 156 mm[Hg] Turner DOSS [facility] 04-15-2023 13:38-0500 Diastolic blood pressure 70 mm[Hg] MD Addy Daniels Work Phone: [facility] 04-15-2023 13:38-0500 Heart rate 76 /min MD Addy Daniels Work Phone: [facility] 04-15-2023 13:38-0500 Respiratory rate 18 /min MD Addy Daniels Work Phone: [facility] 04-15-2023 13:38-0500 SaO2% (BldA) [Mass fraction] 97 % MD Addy Daniels Work Phone: [facility] 04-15-2023 13:38-0500 Systolic blood pressure 160 mm[Hg] MD Addy Daniels Work Phone: [facility] 04-15-2023 12:07-0500 Body height 154.94 cm MD Addy Daniels Work Phone: [facility] 04-15-2023 12:07-0500 Body temperature 97.8 [degF] MD Addy Daniels Work Phone: [facility] 04-15-2023 12:07-0500 Body weight 60.5 kg MD Addy Daniels Work Phone: [facility] 04-06-2023 11:51-0500 Body temperature 97.9 [degF] MD Addy Daniels Work Phone: [facility] 04-06-2023 11:51-0500 Diastolic blood pressure 76 mm[Hg] MD Addy Daniels Work Phone: [facility] 04-06-2023 11:51-0500 Heart rate 84 /min MD Addy Daniels Work Phone: [facility] 04-06-2023 11:51-0500 Respiratory rate 18 /min MD Addy Daniels Work Phone: [facility] 04-06-2023 11:51-0500 SaO2% (BldA) [Mass fraction] 97 % MD Addy Daniels Work Phone: [facility] 04-06-2023 11:51-0500 Systolic blood pressure 146 mm[Hg] MD Addy Daniels Work Phone: [facility] 04-06-2023 06:00-0500 Body weight 58.6 kg MD Addy Daniels Work Phone: [facility] 04-04-2023 13:15-0500 Body height 154.94 cm MD Addy Daniels Work Phone: [facility] 12-22-2022 11:40-0400 Blood Pressure Location MIKAYLA WEISS [facility] 12-22-2022 11:40-0400 Diastolic blood pressure 84 mm[Hg] MIKAYLA WEISS [facility] 12-22-2022 11:40-0400 Systolic blood pressure 124 mm[Hg] MIKAYLAJAQUELINE WEISS [facility] 08-06-2022 00:10-0400 Body temperature 97.3 [degF] MD Addy Daniels Work Phone: [facility] 08-06-2022 00:10-0400 Diastolic blood pressure 74 mm[Hg] MD Addy Daniels Work Phone: [facility] 08-06-2022 00:10-0400 Heart rate 80 /min MD Addy Daniels Work Phone: [facility] 08-06-2022 00:10-0400 Respiratory rate 18 /min MD Addy Daniels Work Phone: [facility] 08-06-2022 00:10-0400 SaO2% (BldA) [Mass fraction] 96 % MD Addy Daniels Work Phone: [facility] 08-06-2022 00:10-0400 Systolic blood pressure 177 mm[Hg] MD Addy Daniels Work Phone: [facility] 08-05-2022 19:51-0400 Body height 154.94 cm MD Addy Daniels Work Phone: [facility] 08-05-2022 19:51-0400 Body weight 67.6 kg MD Addy Daniels Work Phone: [facility] 11-20-2018 07:02-0400 Body Temperature 97 [degF] Mary Vega [facility], [place] 11-20-2018 07:02-0400 BP Diastolic 61 mm[Hg] Mary Vega [facility] [place] 11-20-2018 07:02-0400 BP Systolic 153 mm[Hg] Mary Vega [facility] 11-20-2018 07:02-0400 Pulse (Heart Rate) 75 /min Mary Vega [facility] [place] 11-20-2018 07:02-0400 Pulse Oximetry 97 % Mary Vega [facility], [place] 11-20-2018 07:02-0400 Respiratory Rate 17 /min Mary Vega [facility] [place] 11-17-2018 05:54-0400 BMI (Body Mass Index) 27.62 kg/m2 Mary Vega [facility], [place] 11-17-2018 05:54-0400 Body weight 66.3 kg [facility] [place] 11-15-2018 15:58-0400 Height 154.9 cm Mary Vega [facility], [place] 11-05-2018 07:30-0400 BP Diastolic 57 mm[Hg] [facility] [place] 11-05-2018 07:30-0400 BP Systolic 135 mm[Hg] [facility] [place] 11-05-2018 07:30-0400 Pulse (Heart Rate) 70 /min [facility] [place] 11-05-2018 07:30-0400 Pulse Oximetry 97 % [facility] [place] 11-04-2018 20:06-0400 Body Temperature 98.4 [degF] [facility] [place] 11-04-2018 20:06-0400 Respiratory Rate 16 /min [facility] [place] 11-04-2018 14:56-0400 BMI (Body Mass Index) 27.4 kg/m2 Lenny Ellis [employer] [facility], [place] 11-04-2018 14:56-0400 Body weight 65.77 kg [place], [place] 11-04-2018 14:56-0400 Height 154.9 cm [facility] , [place] Encounters Encounter Date Encounter Type Care Provider Facility Start: 06-29-2023 ambulatory MIKAYLAABRAHAN WEISS Morgan ty:[facility] Start: 06-28-2023 End: 06-28-2023 ambulatory Turner R DINESHL Facility: [facility] Start: 06-28-2023 End: 06-28-2023 [facility] Start: 06-21-2023 End: 06-21-2023 ambulatory MD Addy Daniels Work Phone: [facility] Work Phone: Start: 06-21-2023 End: 06-21-2023 Departed Referred MD Addy Daniels Work Phone: [facility]-LAB Path [facility] Start: 06-21-2023 End: 06-21-2023 ambulatory Turner R NILL Facility:[id number] Start: 05-03-2023 End: 05-03-2023 ambulatory Addy Daniels Facility:[facility] Start: 05-03-2023 End: 05-03-2023 Patient encounter procedure Turner R NILL [facility] Start: 04-15-2023 End: 04-15-2023 Emergency department patient visit MD Addy Daniels Work Phone: [facility]-Emergency Room Work Phone: Start: 04-13-2023 ambulatory Turner NILL Facility:[facility] Start: 04-12-2023 Non-patient / Non-visit MD Aime Daniels [facility] Phone[facility] Work Phone: Start: 04-03-2023 Non-patient / Non-visit MD Aime Daniels Work Phone: [facility] Work Phone: Start: 04-02-2023 Non-patient / Non-visit MD Aime Daniels Work Phone: [facility] Work Phone: Start: 04-02-2023 End: 04-06-2023 Evaluation and management of inpatient MD Addy Daniels Work Phone: [facility] [employer] [facility] Work Phone: Start: 01-11-2023 End: 01-11-2023 ambulatory [facility] Start: 12-22-2022 End: 12-22-2022 ambulatory MIKAYLA WEISS Facility:[facility] Start: 12-22-2022 End: 12-22-2022 Patient encounter procedure MIKAYLA WEISS [facility] Start: 10-14-2022 End: 10-14-2022 ambulatory [facility] Start: 08-05-2022 End: 08-06-2022 Emergency department patient visit MD Addy Daniels Work Phone: [facility]-Emergency [facility] Work Phone: Start: 06-13-2022 End: 06-14-[address] ADDY DANIELS . Facility:[facility] Start: 05-19-[address] ADDY DANIELS . Facili ty:[facility] Start: 04-18-2022 End: 04-19-[address] VALERIE DARDEN Facility:[facility] Start: 04-04-2022 End: 04-04-2022 ambulatory [facility] Start: 01-30-[address] ADDY DANIELS . Facili ty:[facility] Start: 01-04-2022 End: 01-05-[address] ADDY DANIELS . Facility:[facility] Start: 12-26-2021 End: 12-29-2021 Evaluation and management of inpatient DR ADDY DANIELS . Facility:[facility] Start: 12-02-2021 End: 01-04-2022 Pre-admission assessment Alie Santos [facility] Start: 11-30-2021 End: 12-01-[address] JESUS BRUNO Facility:[facility] Start: 11-09-2021 End: 11-10-[address] CALISTA ACEVES Facility:[facility] Start: 08-06-2021 End: 08-07-[address] VALERIE DARDEN Facility:[facility] Start: 07-28-2021 End: 07-29-[address] CALISTA ACEVES Facility:[facility] Start: 06-22-2021 End: 06-22-2021 Patient encounter procedure VALERIE DARDEN [facility] Start: 11-15-2018 End: 11-20-2018 Evaluation and management of inpatient MARY VEGA [facility] Start: 11-15-2018 End: 11-20-2018 Evaluation and management of inpatient Mary Vega Work Phone: [facility] Comment on above: Spinal stenosis of l umbosacral region (Primary Dx); Impaired mobility; Vasovagal syncope Start: 11-13-2018 End: 11-15-2018 Evaluation and management of inpatient LENNY CORRAL [facility] Start: 11-13-2018 End: 11-15-2018 Patient encounter procedure LENNY CORRAL [facility] Start: 11-04-2018 End: 11-05-2018 Patient encounter procedure CALISTA ACEVES [facility] Start: 11-04-2018 End: 11-05-2018 Emergency department patient visit Lenny Corral Work Phone: [facility] Comment on above: Lumbar radiculopathy (Primary Dx); Intractable low back pain Start: 04-19-2018 End: 04-20-2018 Patient encounter procedure DEFAULT PHYSICIAN Facility:[facility] Procedures Date Procedure Procedure Detail Performing [...] ACEVES Start: 11-18-2018 INCENTIVE SPIROMETRY RT CALISTA AECVES Start: 11-18-2018 Ecg routine ecg w/le ast [...] 11-16-2018 IP CONSULT TO INFECT IOUS DISEASES CALISAT KETAN Start: 11-16-2018 Echo tthrc r-t 2d w/ wom-mode compl spec&colr d [facility] Work Phone: Start: 11-16-2018 INCENTIVE SPIROMETRY [...] ICAL VTE PROPHYLAXIS CALISTA ACEVES Start: 11-15-2018 [facility] SPECTROMETRY SPECIALIST EVAL AND TREAT CHRIS ACEVES Start: 11-15-2018 [...] above: Performed By: #### P TT #### [facility] [address] [place] [address] Start: 11-15-2018 Urnls dip stick/tabl et [...] Date Care Activity Detail Author Start: 04-06-2023 [facility] Start: 04-04-2023 Administration of prophylactic treatment [facility] Start: 04-02-2023 Referral to [facility] Start: 04-02-2023 Hospital admission [facility] Start: 08-05-2022 CT Abdomen and Pelvi s WO contrast [facility] Start: 08-05-2022 CT of abdomen and pe lvis without contrast CT abdomen pelvis wo con [facility] Start: 11-19-2019 Creatinine monitoring Creatinine mon [place] Start: 11-19-2019 Potassium monitoring Potassium monit [place], [place] Start: 11-05-2019 Creatinine monitoring Creatinine mon [place] Start: 11-05-2019 Potassium monitoring Potassium monit [place], [place] Start: 12-04-2018 End: 12-04-2018 Office Visit 12/04/2018 Office Visit Neurosurgery Lenny Corral MD [address] [facility], [address] [place] [id number] [employer] Start: 11-30-2018 End: 11-30-2018 Office Visit 11/30/2018 Office Visit Neurosurgery Lenny Corral MD [address] [facility], [address] [address] [phone] [employer] Start: 11-23-2018 End: 11-23-2018 Office Visit 11/23/2018 Office Visit Neurosurgery Lenny Corral MD [address] [facility], [address] [id number] [employer] Start: 11-13-2018 Annual Wellness Visi t (AWV) Annual Wellness Visit (AWV) [place] Start: 10-21-2018 Influenza vaccination Flu vaccine (# 1) [place] Start: 2001 DEXA (modify frequen cy per FRAX score) DEXA (modify frequency per FRAX score) [place] Start: 2001 Pneumococcal 65+ yea rs Vaccine (1 of 2 - PCV13) Pneumococcal 65+ years Vaccine (1 of 2 - PCV13) [place] Start: 1986 Shingles Vaccine (1 of 2) Steward gles Vaccine (1 of 2) [place] Start: 11-13-1955 DTaP/Tdap/Td vaccine (1 - Tdap) DTaP/Tdap/Td vaccine (1 - Tdap) [place], [place] Start: 1946 Lipid screen Lipid screen [place], [place] Culture Blood #1 Culture Blood # 1 Microbiology STAT 11/15/2018 4:37 PM EDT [place] Culture Blood #2 Culture Blood # 2 Microbiology STAT 11/15/2018 4:37 PM EDT [place] End: 11-05-2018 EKG 12 Lead EKG 12 Lead ECG Routine One Time for 1 Occurrences starting 11/05/2018 until 11/05/2018 [place] Comment on above: One Time for 1 Occur rences starting 11/05/2018 until 11/05/2018 Incentive spirometry Incentive s pirometry Respiratory Care Routine Every 2hr while awake until discontinued starting 11/15/2018 [facility] [place] Comment on above: Every 2hr while awak e until discontinued starting 11/15/2018 Initiate Oxygen Ther apy Protocol Initiate Oxygen Therapy Protocol Respiratory Care Routine Daily until discontinued starting 11/15/2018 [facility] [place] Comment on above: Daily until disconti nued starting 11/15/2018 Nonrebreather mask oxygen Nonreb reather mask oxygen Respiratory Care Routine As directed - RT (PRN) until discontinued starting 11/05/2018 [facility] [place] Comment on above: As directed - RT ([place] N) until discontinued starting 11/05/2018 Patient Education [facility] Work Phone: Patient referral [facility] Work Phone: End: 11-15-2018 Speech and language therapy regime Speech language pathology evaluation MASS SPECTROMETRY SPECIALIST Routine One Time for 1 Occurrences starting 11/15/2018 until 11/15/2018 [facility] [place] Comment on above: One Time for 1 Occur rences starting 11/15/2018 until 11/15/2018 End: 11-04-2018 Urine Reflex to Culture Urine Reflex to Culture Lab STAT One Time for 1 Occurrences starting 11/04/2018 until 11/04/2018 [facility] [place] Comment on above: One Time for 1 Occur rences starting 11/04/2018 until 11/04/2018 Immunizations Immunization Date Immunization Notes Care Provider Laxmi romero 12-20-2021 influenza virus vaccine, unspecified formulation MIKAYLA WEISS [facility] 11-30-2021 influenza virus vaccine, unspecified formulation MD Addy Daniels Work Phone: [facility] 12-21-2020 influenza virus vaccine, unspecified formulation MIKAYLA WEISS [facility] 01-09-2019 influenza virus vaccine, unspecified formulation MIKAYLA WEISS [facility] 11-29-2017 influenza virus vaccine, unspecified formulation MIKAYLA WEISS [facility] 01-02-2017 influenza virus vaccine, unspecified formulation MIKAYLA WEISS [facility] 12-06-2016 influenza virus vaccine, unspecified formulation MIKAYLA WEISS [facility] 12-11-2014 influenza virus vaccine, unspecified formulation MIKAYLA WEISS [facility] NEGATED: Highlighted row has not occurred!05-03-2023 influenza virus vaccine, unspecified formulation Turner DOSS [facility] Payers Date Payer Category Payer Self-pay [id number] 2021 Unknown [id number] 2018 Medicare MEDICARE MEDICAR E PART A AND B xxxxxxxxxxx 2018-Present [phone] [place] [address] xxxxxxxxxxx [id number] 2014 Medicare [id number] 2014 Medicare MEDICARE MEDICAR E PART A AND B xxxxxxxxxx 2014-Present [phone] [address] [address] [place] [address] xxxxxxxxxx [id number] .[id number] 2014 Unknown [id number] 2014 Unknown 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 [address] xxxxxxxxxxxx 2014-Present [phone] [address] [place] [address] xxxxxxxxxxxx [id number] .[id number] 1959 Medicare [id number] 1959 Self-pay [id number] 1959 Unknown [id number] 1936 Unknown [id number] 2.16.840.1.168105.3.579.2.647 1936 Unknown [id number] 2.16.840.1.219305.3.579.2.182 1936 Unknown [id number] 2.16.840.1.107925.3.579.2.182 1936 Unknown [id number] 2.16.840.1.530618.3.579.2.182 1936 Unknown [id number] 2.16.840.1.408883.3.579.2.182 1936 Unknown [id number] 2.16.840.1.101260.3.579.2.593 1936 Unknown [id number] 2.16.840.1.846977.3.579.2.593 1936 Unknown [id number] 2.16.840.1.005474.3.579.2.593 1936 Unknown [id number] 2.16.840.1.844768.3.579.2.593 1936 Unknown [id number] 2.16.840.1.647199.3.579.2.593 1936 Unknown [id number] 2.16.840.1.706672.3.579.2.593 1936 Unknown [id number] 2.16.840.1.909519.3.579.2.593 1936 Unknown [id number] 2.16.840.1.583266.3.579.2.593 1936 Unknown [id number] 2.16.840.1.426589.3.579.2.593 1936 Unknown [id number] 2.16.840.1.845319.3.579.2.593 1936 Unknown [id number] 2.16.840.1.568864.3.579.2.727 1936 Unknown [id number] 2.16.840.1.012945.3.579.2.727 1936 Unknown [id number] 2.16.840.1.636731.3.579.2.727 1936 Unknown [id number] 2.16.840.1.490462.3.579.2.727 1936 Unknown [id number] 2.16.840.1.841616.3.579.2.727 Unknown Unknown [id number] 2.16.840.1.378409.3.579.2.531 Unknown [id number] 2.16.840.1.334897.3.579.2.531 Unknown [id number] 2.16.840.1.724064.3.579.2.531 Social History Date Type Detail Facility Start: 11-04-2018 End: 04-15-2023 Tobacco smoking status NHIS Never smoker [facility] Start: 11-04-2018 End: 11-19-2018 Alcohol intake Not Currently [place], [place] Sex Assigned At Not on file [place] Tobacco smoking status No Smokin g Status Entered [facility] Start: 1935 Sex Assigned At Female F [facility] Tobacco smoking status Never [facility] Medical Equipment Procedure Code Equipment Code Equipment Origin al Text Equipment Identifier Dates Graft Canc Chip 30cc [id number] - [id number] Start: 11-13-2018 Graft Canc Chip [id number] 15cc - [id number] Start: 11-13-2018 Sys Fix Reline 0 x Conn 40 50mm 5.5lp Adj [id number] Start: 11-13-2018 Jose Armando-Graft Infuse Kt Med [id number] Start: 11-13-2018 Impl Spine Cage Kamila Crv [id number] 8deg [id number] Start: 11-13-2018 Impl Spine Cage Kamila Crv [id number] 8deg [id number] Start: 11-13-2018 Screw Polyaxial Reline O 2s 6.0x55mm [id number] Start: 11-13-2018 Screw Lk Reline Opn Tulip 5.5mm [id number] Start: 11-13-2018 Impl Spine Harish Reline-O Lrdtc 5.5x70mm [id number] Start: 11-13-2018 Impl Spine Harish Reline-O 5.5x75mm [id number] Start: 11-13-2018 Goals Date Patient Goal Desired Activity /State Functional Status Date Assessment Result Facility 05-03-2023 Functional Status N/A [facility] 04-06-2023 Functional status Patient at Baseline [facility] Work Phone: 12-22-2022 Functional Status N/A [facility] Mental Status Date Assessment Result Facility 04-06-2023 Cognitive function Cognitive Sta tus Patient at Baseline [facility] Work Phone: Clinical Notes [...] plan excisional biopsy under local anesthesia at [facility], for definitive diagnosis and treatment, informed [...] mg= 1 tab(s), Oral, Daily Potassium Chloride (Olu-Ybvk-Lqs 10), 20 mEq, Oral, TID pravastatin 80 [...] Recorded influenza virus vaccine, inactivated 12/11/2014 Recorded [facility] Comment on above: Result Comment: Elec tronically Signed By: ROMARIO DUMONT, Turner Mckeon\.real\Date and Time Signed: 05/03/23 20:14 EDT 04-06-2023 Discharge summary Note Date/Time April 06, 2023 12:22pm [facility] [address] [place] [address] Discharge Summary Signed Patient: Hiram Madrid MR#: [id number] : 1935 Acct:[id number] Age/Sex: 87 / F Adm Date: 4 Loc: Room: 2A3156-[address]: Turner Frank DO Copies to: [...] is a 89-year-old who presented here to [facility] as a transfer on 04/02/2023. She [...] Plan Discharge Plan Patient Disposition: Home Health [facility] Activity: Ambulate as Tolerated Diet: Low-Sodium Additional [...] <Electronically signed by Turner Frank DO> 04/06/[address] [place] [address] Work Phone: 1(718) 807-780202-14-2024 Progress note Author Turner Frank [facility] April 05, 2023 8:14pm Note Date/Time April 05, 2023 8:14pm [facility] [address] [place] [address] Hospitalist Progress Note Signed Patient: Hiram Madrid MR#: [id number] : 1935 Acct:[id number] Age/Sex: 87 / F Adm Date: 4 Loc: Room: [address] [place] [address] Type: ADM IN Attending Dr: Turner Frank [...] Meq Kcl IV 04/01/24 20:29 0 mls/hr .[id number] [facility] Levothyroxine Sodium 88 mcg 04/03/23 [...] <Electronically signed by Turner Frank DO> 04/05/232013 [facility] Work Phone: 1(709) 756-709202-14-2024 Progress note Author Gaudencio [facility] April 05, 2023 11:16am Note Date/Time April 05, 2023 11:16am [facility] [address] [place] [address] Nephrology Progress Note Signed Patient: Hiram Madrid MR#: [id number] : 1935 Acct:[id number] Age/Sex: 87 / F Adm Date: 4 Loc: 4 Room: 9K1792-1 Type: ADM IN Attending Dr: Turner Frank DO Copies to: ~ Date of Service: 04/05/2023 Subjective Subjective Narrative: Ms. Madrid is an 87-year-old white female was transferred from [facility] on 04/02/23 for hyponatremia. Patient did complain for nausea with no vomiting or diarrhea. She had back pain and other vague symptoms that prompted her to go [facility]. ER lab showed sodium 116, potassium 2.3 and magnesium 1.6. Otherlabs unremarkable including creatinine 0.7 mg/dL. EKG showed normal sinus rhythm at 86/min with right bundle branch block. Patient was given 2 g magnesium in the emergency room and subsequently was transferred to [facility] for further management. On arrival, patient was placed on gentle hydration with normal saline with 20 mEq potassium chloride at rate of75 cc/h. Review of his records showed that the patient has a chronic hyponatremia for almost a year however she never seen [facility]. Sodium has been running in the 120s. [...] stated that [facility] was found to [...] 10 Mg Tablet) 10 mg PO DAILY [facility] Stop: 04/02/24 08:59 Last Admin: 04/05/23 08:25 Dose: 10 mg Docusate Sodium (Docusate 100 Mg Capsule) 200 mg PO BID PRN PRN Reason: Constipation Stop: 04/01/24 19:57 Docusate Sodium (Docusate 100 Mg Capsule) 200 mg PO BID [facility] Stop: 04/02/24 08:59 Last Admin: 04/05/23 08:25 Dose: 200 mg Hydralazine HCl (Hydralazine 20 Mg/Ml Vial) 10 mg IV-PUSH Q4H PRN PRN Reason: if SBP > 185 Stop: 04/01/24 19:57 Potassium Chloride/Sodium Chloride (0.9 % Nacl-20 Meq Kcl) 1,000 mls @ 75 mls/hr IV .[id number] [facility] Stop: 04/01/24 20:29 Last Infusion: 04/04/23 08:45 [...] physician into a diagnostic report(s) for Hiram Mdarid. I have reviewed the report(s) and am [...] signed by MD Gaudencio Romero> 04/05/23 1116 [facility] Work Phone: 1(691) 544-647302-13-2024 Progress note Author Gaudencio Romero [facility] April 04, 2023 2:06pm Note Date/Time April 04, 2023 2:00pm [facility] [address] [place] [address] Nephrology Progress Note Signed Patient: Hiram Madrid MR#: [id number] : 1935 Acct:[id number] Age/Sex: 87 / F Adm Date: 4 Loc: Room: [address] [place] [address] Type: ADM IN Attending Dr: Turner Frank DO Copies to: ~ Date of Service: 04/04/2023 Subjective Subjective Narrative: Ms. Madrid is an 87-year-old white female was transferred from [facility] on 04/02/23 for hyponatremia. Patient did complain for nausea with no vomiting or diarrhea. She had back pain and other vague symptoms that prompted her to go [facility]. ER lab showed sodium 116, potassium 2.3 and magnesium 1.6. Otherlabs unremarkable including creatinine 0.7 mg/dL. EKG showed normal sinus rhythm at 86/min with right bundle branch block. Patient was given 2 g magnesium in the emergency room and subsequently was transferred to [facility] for further management. On arrival, patient was placed on gentle hydration with normal saline with 20 mEq potassium chloride at rate of75 cc/h. Review of his records showed that the patient has a chronic hyponatremia for almost a year however she never seen [facility]. Sodium has been running in the 120s. [...] 10 Mg Tablet) 10 mg PO DAILY [facility] Stop: 04/02/24 08:59 Last Admin: 04/04/23 10:06 Dose: 10 mg Docusate Sodium (Docusate 100 Mg Capsule) 200 mg PO BID PRN PRN Reason: Constipation Stop: 04/01/24 19:57 Docusate Sodium (Docusate 100 Mg Capsule) 200 mg PO BID [facility] Stop: 04/02/24 08:59 Last Admin: 04/04/23 10:06 Dose: Not Given Hydralazine HCl (Hydralazine 20 Mg/Ml Vial) 10 mg IV-PUSH Q4H PRN PRN Reason: if SBP > 185 Stop: 04/01/24 19:57 Potassium Chloride/Sodium Chloride (0.9 % Nacl-20 Meq Kcl) 1,000 mls @ 75 mls/hr IV .[id number] [facility] Stop: 04/01/24 20:29 Last Infusion: 04/04/23 08:45 Dose: 0 mls/hr Levothyroxine Sodium (Levothyroxine 88 Mcg Tablet) 88 mcg PO DAILY@0630 [facility] Stop: 04/02/24 06:29 Last Admin: 04/04/23 06:26 Dose: 88 mcg Lorazepam (Lorazepam 2 Mg/Ml Vial) 0.25 mg IV-PUSH Q4H PRN PRN Reason: Anxiety Stop: 10/01/23 11:38 Losartan Potassium (Losartan 50 Mg Tablet) 100 mg PO DAILY [facility] Stop: 04/02/24 08:59 Last Admin: 04/04/23 10:06 Dose: 100 mg Pantoprazole Sodium (Pantoprazole 40 Mg Tablet.Dr) 40 mg PO DAILY.0630 [facility] Stop: 04/04/24 08:59 Pravastatin Sodium (Pravastatin 40 Mg Tablet) 80 mg PO DAILY [facility] Stop: 04/02/24 08:59 Last Admin: 04/04/23 10:06 [...] outpatient Documented By: Gaudencio Romero MD 04/04/23 5844 Signed By: <Electronically signed by MD Gaudencio Romero> 04/04/[address] [facility] Work Phone: 1(254) 427-313502-13-2024 Progress note Author Turner Frank [facility] April 04, 2023 1:09pm Note Date/Time April 04, 2023 1:09pm [facility] [address] [place] [address] Hospitalist Progress Note Signed Patient: Hiram Madrid MR#: [id number] : 1935 Acct:[id number] Age/Sex: 87 / F Adm Date: 4 Loc: 4 Room: [address] [place] [address] Type: ADM IN Attending Dr: Turner Frank [...] Meq Kcl IV 04/01/24 20:29 0 mls/hr .[id number] [facility] Levothyroxine Sodium 88 mcg 04/03/23 [...] <Electronically signed by Turner Frank DO> 04/04/23 1975 [facility] Work Phone: 1(757) 254-442302-12-2024 Progress note Author Turner Frank [facility] April 03, 2023 7:29pm Note Date/Time April 03, 2023 7:29pm [facility] [address] [place] [address] Hospitalist Progress Note Signed Patient: Hiram Madrid MR#: [id number] : 1935 Acct:[id number] Age/Sex: 87 / F Adm Date: 4 Loc: Room: [address] [place] [address] Type: ADM IN Attending Dr: Turner Frank [...] Meq Kcl IV 04/01/24 20:29 75 mls/hr .[id number] [facility] Administration Levothyroxine Sodium 88 mcg 04/03/23 [...] <Electronically signed by Turner Frank DO> 04/03/231928 [facility] Work Phone: 1(926) 669-234602-12-2024 Consult note Author Gaudencio Romero [facility] April 03, 2023 2:07pm Note Date/Time April 03, 2023 2:07pm [facility] [address] [place] [address] Nephrology Consult Note Signed Patient: Hiram Madrid MR#: [id number] : 1935 Acct:[id number] Age/Sex: 87 / F Adm Date: 4 Loc: Room: [address] [place] [address] Type: ADM IN Attending Dr: Turner Frank DO Copies to: MD Gaudencio Pickering MD Michael R. Frings, DO~ Providers Consult Date: 04/03/23 Requesting Provider: Turner Frank DO Primary Care Provider: Addy Daniels MD [facility] Reason for Consult: Hyponatremia, sodium 117 on admission History of Present Illness: Ms. Madrid is an 87-year-old white female was transferred from [facility] on 04/02/23 for hyponatremia. Patient did complain for nausea with no vomiting or diarrhea. She had back pain and other vague symptoms that prompted her to go [facility]. ER lab showed sodium 116, potassium 2.3 and magnesium 1.6. Otherlabs unremarkable including creatinine 0.7 mg/dL. EKG showed normal sinus rhythm at 86/min with right bundle branch block. Patient was given 2 g magnesium in the emergency room and subsequently was transferred to [facility] for further management. On arrival, patient was placed on gentle hydration with normal saline with 20 mEq potassium chloride at rate of75 cc/h. Review of his records showed that the patient has a chronic hyponatremia for almost a year however she never seen [facility]. Sodium has been running in the 120s. [...] negative unless noted below or in HPI [facility] Medical History (Updated 04/03/23 @ 14:00 by [...] Surgical History (Updated 02/01/23 @ 14:30 by [employer]) History of tonsillectomy Problem List clean-up per [...] 10 Mg Tablet) 10 mg PO DAILY [facility] Stop: 04/02/24 08:59 Last Admin: 04/03/23 08:58 Dose: 10 mg Docusate Sodium (Docusate 100 Mg Capsule) 200 mg PO BID PRN PRN Reason: Constipation Stop: 04/01/24 19:57 Docusate Sodium (Docusate 100 Mg Capsule) 200 mg PO BID [facility] Stop: 04/02/24 08:59 Last Admin: 04/03/23 08:58 Dose: Not Given Hydralazine HCl (Hydralazine 20 Mg/Ml Vial) 10 mg IV-PUSH Q4H PRN PRN Reason: if SBP > 185 Stop: 04/01/24 19:57 Potassium Chloride/Sodium Chloride (0.9 % Nacl-20 Meq Kcl) 1,000 mls @ 75 mls/hr IV .[id number] [facility] Stop: 04/01/24 20:29 Last Admin: 04/02/23 21:56 Dose: 75 mls/hr Levothyroxine Sodium (Levothyroxine 88 Mcg Tablet) 88 mcg PO DAILY@0630 [facility] Stop: 04/02/24 06:29 Last Admin: 04/03/23 05:54 Dose: 88 mcg Losartan Potassium (Losartan 50 Mg Tablet) 100 mg PO DAILY [facility] Stop: 04/02/24 08:59 Last Admin: 04/03/23 08:58 Dose: 100 mg Pravastatin Sodium (Pravastatin 40 Mg Tablet) 80 mg PO DAILY [facility] Stop: 04/02/24 08:59 Last Admin: 04/03/23 08:58 [...] 01:50 04:48 MCHC 35.8 H (32.0-35.0) g/dL Pope # (Auto) 1.1 H (0.0-0.8) x10E3/uL Sodium [...] 04/03/23 Range/Units 08:00 10:38 MCHC (32.0-35.0) g/dL Pope # (Auto) (0.0-0.8) x10E3/uL Sodium 118 L* [...] stay Documented By: Gaudencio Romero MD 04/03/23 1601 Signed By: <Electronically signed by MD Gaudencio Romero> 04/03/23 5195 [facility] Work Phone: 1(452) 521-731902-11-2024 History and physical note Author Natividad Gregory [facility] April 02, 2023 8:22pm Note Date/Time April 02, 2023 8:06pm [facility] [address] [place] [address] Hospitalist H&P Signed Patient: Hiram Madrid MR#: [id number] : 1935 Acct:[id number] Age/Sex: 87 / F Adm Date: 4 Loc: Room: [address] [place] [address] Type: ADM IN Attending Dr: Lucy Lockhart MD Copies to: MD Lucy Pickering MD Ruta Semaskiene, MD~ HPI DATE OF EXAMINATION: 04/02/23 CHIEF COMPLAINT: Hyponatremia HISTORY OF PRESENT ILLNESS: 87 years old female was transferred from [facility] for hyponatremia. Itseems like the patient has [...] days ago she has been admitted to [facility] and discharged. Since then she still remains [...] Previous records in the computer system reviewed [facility] Medical History (Updated 04/02/23 @ 20:21 by [...] Surgical History (Updated 02/01/23 @ 14:30 by [facility]) History of tonsillectomy Problem List [...] <Electronically signed by Natividad Gregory MD> 04/02/232021 [facility] Work Phone: 1(554) 650-433911-22-2023 NoteNoted 7 beat run of NSVT on 1 week holter monitor, along with SVT, PVCs Recommended to continue coreg 25 mg bid, will place 30 day monitor, and obtain treadmill cardiolite stress test for ischemic evaluation.[facility]11-22-2023 NotePt reports that she has had 5 syncopal episodes since this Summer- some while having a BM, and other episodes while just up and walking.[facility]11-22-2023 NoteWill monitor with routine echocardiogram annually unless pt has concerning symptomsUnThe [facility]11-22-2023 NoteRecommended to continue ASA and pravastatinUnThe [facility]Health System11-22-2023 Note Hypertension is stable Reviewed B/P log and typically in the mornings her b/p with well controlled 120's/70-80, and in the evenings can be up to 140/80 Continue all meds and will add toprolUnThe [facility]Health System 01-11-2023 NoteContinue pravastatinUnThe MetroHealth System11-22-2023 NoteWill monitor with routine echocardiogram annually unless pt has concerning symptomsUnThe [facility]Health System11-22-2023 NoteWill monitor with routine echocardiogram annually unless pt has concerning symptomsUnThe MetroHealth System11-22-2023 NotePatient here for 3 mo follow up valve disorder and carotid artery stenosis. She has had a few episodes of syncope since last visit. She recently wore Holter monitor. Says Dr. Daniels wants to add metoprolol but she does not want to add another medication. Review of Systems Cardiovascular: Positive for syncope. Hematologic/Lymphatic: Bruises/bleeds easily. All other systems reviewed and are negative.[facility] 01-11-2023 NoteUTP CARDIOLOGY PROGRESS NOTE HPI: [...] called and was evaluated in ED at [facility]. Admits she has had a couple syncopal episodes in the bathroom while having a BM- last one was at [employer]. States she also has had a couple while just up and walking- normal Day to Day activity. Daughter states that pt is usually out for about 1 minute. Of note patient was direct admitted to the [facility] end of August for electrolyte imbalances low sodium, low potassium, and acute anemia. She was evaluated at [facility] in October for ABD pain/ syncope, [...] The patient states she was shopping in [facility] when she felt the need to have [...] was someone in the bathroom in the [place] and she have to go back and [...] 3 levothyroxine (Syn (more content not included)...[facility]11-02-2023 Hospital Discharge instructions Patient Education 12/22/2022 [...] transplant. Follow these instructions at home: Take uvem-etr-hcuuarc and prescription medicines only as told by [...] provider. Document Revised: 05/26/2020 Document Reviewed: 05/26/2020 [email or web address] Patient Education 2022 [employer]. Follow Up Care 09/06/2022 13:10:43 With:ABHISHEK NOONAN, MKIAYLA Pereira, URL Address: [address] [place] [address] [phone] When: Unknown Comments:6 mos w/ renal fxn (per PCP) [facility] [place] 09-05-2023 NotePt message/ call that she is [...] appointment Lesly Alaniz NP Division of Cardiology, [facility]- [phone] Pager- [phone] Email- [email or web address] [facility]08-25-2023 NoteStable and non pitting currentlyUnThe [facility] 10-14-2022 NoteCurrently stable Pt to call for any recurrent syncope or concernsUnThe [facility] System08-25-2023 NoteMild on recent echo No concerning symptomsUnThe [facility]Health System08-25-2023 NoteContinue ASA and statinUnThe MetroHealth System08-25-2023 NoteHypertension is uncontrolled 160/75- admits this is where her b/p is at home Increase coreg to 25 mg bid, continue losartan 100 mg, hydrochlorothiazide 25 mg, and amlodipine 10 mgUnThe MetroHealth System08-25-2023 Note Continue pravastatinUnThe MetroHealth System08-25-2023 NoteNo concerning symptoms Will continue to monitor with echocardiogramUnThe [facility] 10-14-2022 NoteNo concerning symptoms Will continue to monitor with echocardiogramUnThe [facility]Health System 10-14-2022 NotePatient here c/o LE edema. Says today they aren't as bad, but she states they're hard and sometimes painful. She has not had lab work since [facility] stay in July 2022. She denies chest pain, lightheadedness, and palpitations. Review of Systems Cardiovascular: Positive for dyspnea on exertion and leg swelling. Hematologic/Lymphatic: Bruises/bleeds easily. All other systems reviewed and are negative.[facility] 10-14-2022 NoteUTP CARDIOLOGY PROGRESS NOTE HPI: [...] note patient was direct admitted to the [facility] end of August for electrolyte imbalances low [...] and non pitting currently RTC 3-6 monthsSt[facility]02-13-[facility] Chief [...] twice dominic (more content not included)... [facility] note No data available for this section [facility] note Future Appointments Appointment Date:06/29/2023 09:30:00 AM Scheduled Provider:MIKAYLA WEISS PA-C Location:[facility] Appointment Type:URO Office Visit [facility] Evaluation noteNo assessment information available [facility] Work Phone: Evaluation note* Diagnosis Onset Date Resolution Status HTN (hypertension) acute Hyponatremia acute [facility] Work Phone: Hospital Discharge instructions No data available for this section [facility] Additional Instructions Take Naprosyn [...] any fevers or chills or intractable nausea vomiting.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 * Back Pain (Tajik) documented in this encounter* Discharge Instr - [...] at most local grocery stores, pharmacies, and [employer]. ? If you have any questions about [...] treatment -- -- -- -- -- 11/15/18 1600 No, patient does not have an advance directive for healthcare treatment -- -- -- -- -- Admitting Physician: Mary Vega MD PCP: Calista Aceves MD Discharging Nurse: Discharging Hospital Unit/Room#: R238/R238-01 Discharging Unit Phone Number: Emergency Contact: Extended Emergency Contact Information Primary Emergency Contact: Madrid,Andrea [facility] [place] Relation: Spouse Secondary Emergency Contact: Liliya Townsend [place] Relation: Child Speedboat Operator needed? No Past Surgical History: Past Surgical History: Procedure Laterality Date APPENDECTOMY BACK SURGERY CHOLECYSTECTOMY LUMBAR FUSION N/A 11/13/2018 PLIF L 3-4-5 DECOMPRESSION L3, L4 performed by Lenny Corral MD at [facility] Right Immunization History: There is [...] Assisted Dressing Independent Toileting Independent Feeding Independent Power Shovel Mechanic Independent Med Delivery whole Wound Care Documentation [...] Video (Video Swallowing Test): {Done Not Done Date:[id number]} Treatments at the Time of Hospital Discharge: Respiratory Treatments: Oxygen Therapy: is not on home oxygen therapy. Ventilator: - No ventilator support Rehab Therapies: Physical Therapy and Occupational Therapy Weight Bearing Status/Restrictions: No weight bearing restirctions Other Medical Equipment (for information only, NOT a DME order): walker Other Treatments: Patient's personal belongings (please select all that are sent with patient): {[facility] DME Belongings:[id number]} RN SIGNATURE: MANAGEMENT/SOCIAL WORK SECTION Inpatient Status Date: Patient was admitted to Inpatient Acute Rehab 11/15/18 Readmission Risk Assessment Score: Readmission Risk Risk of Unplanned Readmission: 12 Discharging to Facility/ Agency Name: Karan Sosa Address: Fax: Dialysis Facility (if applicable) Name: Address: Dialysis Schedule: Phone: Fax: Energy Director/It Solutions Architect signature: ICIAN SECTION Prognosis: Good Condition [...] Date: 11/20/2018 Patient Name: Hiram Madrid Account: [id number] : 1935 (83 y.o.) Room: [place] [address] Diagnosis: Impaired mobility and gait secondary to [...] L4 performed by Lenny Corral MD at [facility] Right Precautions: Restrictions/Precautions: [...] to increasing pain) Transfer Assistance: Independent Active Filter Tank Tender: Yes Mode of Transportation: Car 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 Leisure & Hobbies: Cooking, reading, needlepoint Additional Comments: 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, has been relying more on dtr and spouse due toworsening weakness past few weeks Current Functional Status: ADL Equipment Provided: Sock aid, Restaurant Assistant Manager Feeding: Modified independent Grooming: Independent UE [...] PM Yarely Gordon 11/20/2018 12:35 PM EDT [facility] MUSIC THERAPY Date: 11/20/2018 Patient Name: [...] 11/20/2018 9:59 AM EDT Occupational Therapy Facility/Department: [facility] Daily Treatment [...] 11/20/2018 9:55 AM EDT Occupational Therapy Facility/Department: [facility] Daily Treatment [...] device (slide rail) Walk: 6 - Modified [place] Walks at least 150 feet with an ambulatory device, orthosis or prosthesis OR requires extra amount of time OR there is concern for safety Distance Walked: 200' Wheel Chair: 0 - Activity Not Assessed/Does Not Occur Stairs: 6 - Modified [place] Safely goes up and down at least [...] from Dr. Ellis Holguin D.O., PM&R Attending [phone] [facility] * Khanh White LPN - 11/19/2018 6:00 [...] 11/19/2018 2:05 PM EDT Occupational Therapy Facility/Department: [facility] Daily Treatment [...] EDT Physical Therapy Rehab Treatment Note Facility/Department: [facility] Room: R238/R238-01 [...] Unit/Bed: R238/R238-01 Date of : 1935 Acct: [id number] Admitting Diagnosis: Impaired mobility [Z74.09] Spinal stenosis [...] and tentative discharge home tomorrow. Follows with training associate in [place]. 11/18/18: called by staff physical therapy assistant regarding tachycardia. Pt was unaware of [...] to have + orthostatics. Denies hx of [place], CHF or arrhythmia. Follows with a training associate from [place] for carotid artery disease and cardiac murmur. [...] to DC home and F/U with regular training associate as outpatient Attending Supervising Physician's Attestation Statement The patient is a 83 y.o. female. I have performed a history and physical examination of the patient. I discussed the case with the physician assignment desk assistant. I reviewed the patient's Past Medical [...] EDT Physical Therapy Rehab Treatment Note Facility/Department: [facility] NAME: Hiram Madrid : 1935 (83 y.o.) [...] EDT Physical Therapy Rehab Treatment Note Facility/Department: [facility] Room: R238/R238-01 [...] Neuromuscular Education Neuromuscular Comments: Pizano Initiated: other SUPERVISOR TUMBLING AND ROLLING finished it: pt scored a 42/56. Bed [...] education: 10 Therapeutic ex: 0 Mikayla Lindsey SUPERVISOR TUMBLING AND ROLLING, 11/19/18 at 11:59 AM * Khanh White LPN - 11/19/2018 9:15 AM EDT Assessment completed. Medicated with Percocet for 10/10 pain in lower back and left leg. Removed old drsg from lower back. Noted a scant amount of serosanguinous drainage. Zuni intact. Sutures at lower part of incision intact. Cleanse incision with NS. Applied Neosporin oint to incision. Applied DSD. No back brace per Dr Corral. Call light in reach. Will continue to monitor. * Lenny Corral MD - 11/19/2018 8:23 AM EDT Patient: Hiram Madrid Unit/Bed: R238/R238-01 Date of : 1935 Acct: [id number] Admitting Diagnosis: Impaired mobility [Z74.09] Spinal stenosis of lumbosacral region [M48.07] Admit Date: 11/15/2018 Hospital Day: 4 Current Medications: Scheduled Meds: cephALEXin 500 mg Oral 3 times per day vhftynda-kmjhueogal-vinuyyjcf Topical BID enoxaparin 30 mg Subcutaneous Daily [...] woman from homewith spouse who presents to [facility] with the above deficits which impact [...] ms QTc Calculation (Bazett) 463 ms P [place] 58 degrees R [place] -11 degrees T [place] 5 degrees Xr Chest Standard (2 Vw) [...] from Dr. Ellis Holguin D.O., PM&R Attending [phone] [facility] * Rachael Graf LPN - 11/18/2018 4:39 [...] and no guarding. Musculoskeletal: Back: Urine Culture [[id number]] Collected: 11/15/18 1905 Order Status: Completed Specimen: Urine, clean catch Updated: 11/17/18 0728 Urine Culture, Routine No growth 24 hours Narrative: ORDERED BY: ADDY COKER SOURCE: Urine Clean Catch COLLECTED: 11/15/18 19:05 ANTIBIOTICS AT DI.: RECEIVED : 11/15/18 19:05 Culture Blood #2 [[id number]] Collected: 11/15/18 1637 Order Status: Completed Specimen: Blood Updated: 11/16/18 1815 Culture, Blood 2 No Growth to date. Any change in status will be called. Narrative: ORDERED BY: COKER, ADDY SOURCE: Blood COLLECTED: 11/15/18 16:37 ANTIBIOTICS AT DI.: RECEIVED : 11/15/18 16:42 Culture Blood #1 [[id number]] Collected: 11/15/18 1637 Order Status: Completed Specimen: [...] Unit/Bed: 38/R238-01 Date of : 1935 Acct: [id number] Admitting Diagnosis: Impaired mobility [Z74.09] Spinal stenosis [...] L4 performed by Lenny Corral MD at [facility] Right History reviewed. No pertinent [...] on phone: None Gets together: None Attends alevism service: None Active member of club or organization: None Attends meetings of clubs or organizations: None Relationship status: None Intimate partner violence: Fear of current or ex partner: None Emotionally abused: None Physically abused: None Forced sexual activity: None Other Topics Concern None Social History Narrative None Subjective/HPI: called by staff physical therapy assistant regarding tachycardia. Pt was unaware of [...] woman from homewith spouse who presents to [facility] with the above deficits which impact [...] up labs. Blanca Holguin D.O., PM&R Attending [phone] [place] [address] Tasha * Dana Craig, RN - 11/17/2018 5:45 PM EDT Monitor room called, said pt had about 18 sec run of svt up to 218; notified cardio. * Faye Summers PTA - 11/17/2018 4:07 PM EDT Physical Therapy Rehab Treatment Note Facility/Department: [facility] Room: [place] [address] NAME: Hiram Madrid : 1935 (83 y.o.) [...] 11/17/2018 2:51 PM EDT Occupational Therapy Facility/Department: [facility] Daily Treatment [...] EDT Physical Therapy Rehab Treatment Note Facility/Department[facility]: Hiram Madrid : 1935 (83 [...] EDT Physical Therapy Rehab Treatment Note Facility/Department: [facility] Room: [place] [address]- NAME: Hiram Madrid : 1935 (83 y.o.) [...] 11/17/2018 8:43 AM EDT Occupational Therapy Facility/Department: [facility] Daily Treatment [...] at below status. ADL Equipment Provided: Sock aid;Restaurant Assistant Manager Grooming: Independent UE Bathing: Setup LE [...] woman from homewith spouse who presents to [facility] with the above deficits which impact [...] consult,check dopplers Blanca Holguin D.O., PM&R Attending [phone] [facility] * Jessica Irvin, OTR/L - 11/16/2018 4:14 PM EDT Occupational Therapy Facility/Department: [facility] Daily Treatment Note NAME: Hiram Madrid : 1935 Date of Service: 11/16/2018 Discharge Recommendations: Continue to assess pending progress OT Equipment Recommendations Other: Continue to assess Assessment Performance deficits / Impairments: Decreased functional mobility ;Decreased ADL status;Decreased strength;Decreased balance;Decreased endurance;Decreased high- level IADLs Assessment: Pt. is an 83 year old woman from home with spouse who presents to [facility] with the above deficits which impact [...] Objective The patient completed the [facility] Mental Status (UMS) Examination on this date, [...] PM EDT Patient: Hiram Madrid [facility] Date of : 1935 Acct: [id number] Admitting Diagnosis: Impaired mobility [Z74.09] Spinal stenosis of lumbosacral region [M48.07] Admit Date: 11/15/2018 Hospital Day: 1 Current Medications: Scheduled Meds: [START ON 11/17/2018] enoxaparin 40 mg Subcutaneous Daily smajbiyj-xnselnqtfm-vuyucgiqe Topical BID docusate sodium 100 mg Oral [...] to have + orthostatics. Denies hx of [place], CHF or arrhythmia. Follows with a training associate from [place] for carotid artery disease and cardiac murmur. [...] L4 performed by Lenny Corral MD at [facility] Right Social History [...] on phone: None Gets together: None Attends alevism service: None Active member of club or [...] 100 mg Oral BID Shyla Renato Vizcaino PNEUMATIC DRUM SANDER - INSTRUMENT ASSEMBLY SUPERVISOR famotidine (PEPCID) tablet 20 mg 20 mg Oral BID Shyla Renato Vizcaino APRN - INSTRUMENT ASSEMBLY SUPERVISOR [START ON 11/16/2018] amLODIPine (NORVASC) tablet 10 mg 10 mg Oral Daily Shyla Renato Vizcaino APRN - INSTRUMENT ASSEMBLY SUPERVISOR [START ON 11/16/2018] aspirin EC tablet 81 mg 81 mg Oral Daily Shyla T EDY Vizcaino - INSTRUMENT ASSEMBLY SUPERVISOR cephALEXin (KEFLEX) capsule 500 mg 500 mg Oral 3 times per day Shyla T EDY Vizcaino - INSTRUMENT ASSEMBLY SUPERVISOR gabapentin (NEURONTIN) capsule 100 mg 100 mg Oral TID Shyla T EDY Vizcaino CNP [START ON 11/16/2018] levothyroxine (SYNTHROID) tablet 88 mcg 88 mcg Oral Daily Shyla T EDY Vizcaino- MK [START ON 11/16/2018] losartan (COZAAR) tablet 100 mg 100 mg Oral Daily Shyla T EDY Vizcaino - INSTRUMENT ASSEMBLY SUPERVISOR oxyCODONE-acetaminophen (PERCOCET) 5-325 MG per tablet [...] tele 7. GI/DVT proph * Mikayla Lindsey, SUPERVISOR TUMBLING AND ROLLING - 11/16/2018 2:04 PM EDT Physical Therapy Rehab Treatment Note Facility/Department: [facility] NAME: Hiram Madrid : 1935 (83 y.o.) [...] education: 0 Therapeutic ex: 23 Mikayla Lindsey SUPERVISOR TUMBLING AND ROLLING, 11/16/18 at 3:57 PM * Rhiannon Blank MASS SPECTROMETRY SPECIALIST - 11/16/2018 11:21 AM EDT Speech Language [...] from home with spouse who presents to [facility] with the above deficits which impact [...] to increasing pain) Transfer Assistance: Independent Active Filter Tank Tender: Yes Mode of Transportation: Car Type of [...] And Coordinated: Yes Cognition Overall Cognitive Status: [facility] Cognition Comment: Comprehension: 7, Expression: 7, [...] supervising OTR/L STIANO Lee/Lloyd * Jena Vega, SUPERVISOR TUMBLING AND ROLLING - 11/16/2018 10:35 AM EDT Physical Therapy Rehab Treatment Note Facility/Department: [facility] Room: R238/R238-01 [...] 11/16/18 at 11:10 AM * Jessenia Gordon, FLOORWORKER LASTING - 11/16/2018 9:35 AM EDT [facility] RECREATIONAL THERAPY Initial Evaluation Date: [...] hearing in left ear) Patient seen at: [phone] Recreation Therapist received referral, chart reviewed and [...] her flower bed. Past leisure interests: Walking, zoroastrian, had pets Future leisure interests: Emotional Observed/noted: Cooperative and Pleasant Affect: Appropriate Comments: Today s Session included: Increased Socialization, Provided active listening and Benefits of the patient's leisure and recreation pursuits being utilized as stress relievers Recommendations to utilize Recreation Therapy services, its supported services and groups include: [facility], Pet Therapy, Leisure [...] PT - 11/16/2018 8:20 AM EDT Facility/Department: [facility] Rehabilitation Initial Assessment: Physical Therapy [facility] NAME: Hirma Madrid : 1935 Date of Service: 11/16/2018 [...] L4 performed by Lenny Corral MD at [facility] Right Chart Reviewed: Yes Patient [...] to increasing pain) Transfer Assistance: Independent Active Filter Tank Tender: Yes Additional Comments: 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, [...] side to side to initiate log roll extermination inspector goals extermination inspector goal 1: pt to be indep with bed mobility group home goal 2: pt to be indep with bed transfers extermination inspector goal 3: pt to [id number] ft with supervision group home goal 4: pt to navigate 4 steps with SBA group home goal 5: 30/56 for Pizano balance testing ELOS: Plan weeks: 2 Therapy Time: Individual Time In 1000 Time Out 1030 Minutes 30 Lakisha Trevino, PT, 11/16/18 at 12:00 PM * Marybel Ackerman, [facility] - 11/15/2018 11:29 PM EDT [...] puffs by inhalation with spacer [] Ipratropium [place] 0.02% unit dose by aerosol Ipratropium [place] MDI 2 puffs by inhalation with spacer [] Duoneb (Ipratropium + Albuterol) unit dose by aerosol Ipratropium MDI + Albuterol MDI 2 puffs byinhalation w/spacer MDI to Aerosol [] Albuterol Sulfate MDI Albuterol Sulfate 0.083% unit dose by aerosol [] Levalbuterol MDI 2 puffs by inhalation Levalbuterol 1.25 mg unit dose by aerosol [] Ipratropium [place] MDI by inhalation Ipratropium [place] 0.02% unit dose by aerosol [] Combivent [...] lumbosacral region Impaired mobility Vasovagal syncope [facility] [address] [id number] Chief Complaint and Reason for Visit Chief Complaint SYNCOPE Chief Complaint hyponatremia hyponatremia hyponatremia Reason for Visit HTN (hypertension) Hyponatremia Chief Complaint hyponatremia hyponatremia hyponatremia high bp Reason for Visit HTN (hypertension) Hyponatremia Chief Complaint hyponatremia hyponatremia hyponatremia high bp Unknown Reason for Visit HTN (hypertension) Hyponatremia Additional Source Comments INFORMATION SOURCE (unrecogn ized section and content) DATE CREATED AUTHOR 04/20/2018 [facility] DATE CREATED AUTHOR AUTHOR'S ORGANIZ ATION 11/24/2018 [facility] DATE CREATED AUTHOR AUTHOR'S ORGANIZ ATION 06/14/2022 [facility] DATE CREATED AUTHOR AUTHOR'S ORGANIZ ATION 01/13/2023 [facility] DATE CREATED AUTHOR AUTHOR'S ORGANIZ ATION 08/27/2023 [facility] DATE CREATED AUTHOR AUTHOR'S ORGANIZ ATION 09/28/2023 [facility] Reason for Visit (unrecogniz ed section and content) Reason Comments Back Pain Left low back pain r adiates down left leg. Pain flared up last monday Status Reason Specialty Diagnoses / Procedures Referre d By Contact Referred To Contact Diagnoses Intractable back pain Ellis, Lenny H., MD [address], [address] [place] [address] [facility] Patient Care team informatio n [...] Gaudencio Romero MD Other Provider Active Start: [place] 2023 End: April 06, 2023 KAMILA Escobar Other Provider Active Start: April 02, 2023 End: April 06, 2023 Fiona Magana MD Other Provider Active Start: [place] 2023 End: April 06, 2023 Cachorro Real MD Other Provider Active Star t: April 02, 2023 End: April 06, 2023 Warner Sood MD Other Provider Active Start: April 02, 2023 End: April 06, 2023 Boni Choi MD Other Provider Active Start: [place] 2023 End: April 06, 2023 Turner Frank [...] Member Role Status Dates Turner Doss MD [facility] Attending Provider Active Start: June 21, [...] BE BASED ON THE PRIMARY CLINICAL RECORDS. [employer] provides no warranty or guarantee of the accuracy or completeness of information in this document.
[2023-12-08 12:14] LABS: Anion Gap 13.7; Calcium 9.3 mg/dL (8.5-10.1); Carbon Dioxide 27.5 mmol/L (21.0-32.0); Chloride 99 mmol/L (98-107); Estimated GFR (African America >60 (>=60 mL/min/1.73m^2); Estimated GFR (Non-African Ame >60 (>=60 mL/min/1.73m^2); Glucose 94 mg/dL (74-106); Potassium 4.2 mmol/L (3.5-5.1); Sodium 136 mmol/L (136-145)
== END 2023-12-08 10:24 | disposition home or self-care (01) ==
LOC: LAB 10:25
PROVIDERS: PCP Family Medicine; Visit Provider Family Medicine
DX: E87.1 Hypo-osmolality and hyponatremia (principal)
CPT/HCPCS: 36415; 80048

== ENCOUNTER 2024-01-22 18:10 | Emergency (ER) | payer MEDICARE, OTHER, SELFPAY ==
[2024-01-22] VITALS (34 sets, daily range): BP systolic 162–219; BP diastolic 63–76; PULSE 76; TEMP 36.6; O2SAT 95–98; BMI 27.2
--- NOTE | 2024-01-22 18:28 | XR_ITS ---
The [address] [address] Patient Name: HIRAM MADRID MRN: [id number] date: 1935 Sex: F Assigned Patient Location: ER Current Patient Location: ER Accession/Order Number: [id number] Exam Date: 01/22/2024 18:49 Report Date: 01/22/2024 20:24 At the request of: THANIA NUNEZ Procedure: XR hand LT min 3V EXAM: XR hand LT min 3V HISTORY: fall COMPARISON: None. TECHNIQUE: PA, lateral, oblique view left hand FINDINGS: No displaced fracture or dislocation. Normal joints and soft tissues the hand. Minimal calcification in the wrist... Carpal alignment normal. Moderate degenerative changes. XR/XR hand LT min 3V IMPRESSION: Negative for fracture or dislocation. Electronically authenticated by: HUMA ESTRADA Date: 01/22/2024 20:24
--- NOTE | 2024-01-22 18:28 | CT_ITS ---
The [address] [address] Patient Name: HIRAM MADRID MRN: [id number] date: 1935 Sex: F Assigned Patient Location: ER Current Patient Location: ER Accession/Order Number: [id number] Exam Date: 01/22/2024 18:49 Report Date: 01/22/2024 20:20 At the request of: THANIA NUNEZ Procedure: CT facial bones wo con EXAM: CT facial bones wo con HISTORY: Fall. TECHNIQUE: Axial CT scans through the maxillofacial bony structures were obtained without contrast administration. Coronal and sagittal reconstruction images were obtained. Dose reduction techniques were achieved by using: automated exposure control and/or adjustment of mA and /or kV according to patient size and/or use of iterative reconstruction technique. FINDINGS: No acute maxillofacial fracture is present. Paranasal sinuses show no air-fluid level. The intraorbital contents appear normal. Visualized particleboard factory worker spaces appear normal. Parapharyngeal spaces appear clear. The visualized neck shows no adenopathy. 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 The visualized intracranial contents show no acute process. The craniovertebral junction appears normal. Middle ear cavities are clear. Mastoids are clear. An acute slightly displaced fracture of C5 inferior endplate spur anteriorly with associated prevertebral edema. CT/CT facial bones wo con IMPRESSION: No acute maxillofacial fracture. An acute slightly displaced fracture of C5 inferior endplate spur anteriorly with associated prevertebral edema. 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 Electronically authenticated by: FLACO JULES Date: 01/22/2024 20:20
--- NOTE | 2024-01-22 18:28 | CT_ITS ---
The [address] [address] Patient Name: HIRAM MADRID MRN: [id number] date: 1935 Sex: F Assigned Patient Location: ER Current Patient Location: ER Accession/Order Number: [id number] Exam Date: 01/22/2024 18:49 Report Date: 01/22/2024 20:05 At the request of: THANIA NUNEZ Procedure: CT thoracic spine wo con EXAM: CT thoracic spine wo con HISTORY: fall COMPARISON: None. TECHNIQUE: Axial CT scans of the thoracic spine were obtained without contrast. MPR images were obtained. Dose reduction techniques were achieved by using: automated exposure control and/or adjustment of mA and /or kV according to patient size and/or use of iterative reconstruction technique. FINDINGS: No acute fracture or posttraumatic malalignment. No central spinal stenosis or abnormal paraspinal soft tissue. No prevertebral edema. Mild anterior endplate spurs throughout the thoracic spine. The visualized lungs show no acute process. Coronary atherosclerotic calcifications. The visualized upper abdomen shows no acute process. CT/CT thoracic spine wo con IMPRESSION: No acute fracture or posttraumatic malalignment. Coronary atherosclerotic calcifications. Electronically authenticated by: FLACO JULES Date: 01/22/2024 20:05
--- NOTE | 2024-01-22 18:28 | CT_ITS ---
The [address] [address] Patient Name: HIRAM MADRID MRN: [id number] date: 1935 Sex: F Assigned Patient Location: ER Current Patient Location: ER Accession/Order Number: [id number] Exam Date: 01/22/2024 18:49 Report Date: 01/22/2024 20:13 At the request of: THANIA NUNEZ Procedure: CT cervical spine wo con EXAM: CT cervical spine wo con HISTORY: Fall. TECHNIQUE: Axial CT scans through the cervical spine were obtained without contrast administration. Sagittal and coronal reconstruction images were obtained. Dose reduction techniques were achieved by using: automated exposure control and/or adjustment of mA and /or kV according to patient size and/or the use of an iterative reconstruction technique. COMPARISON: None. FINDINGS: A small acute slightly displaced fracture of C5 inferior endplate spur with associated mild prevertebral edema. Straightening of the cervical spine is present. At C3-C4, moderate to severe left facet arthropathy with minimal degenerative spondylolisthesis of C3 on C4. At C4-C5, mild posterior discovertebral complex and. At C5-C6, a right paracentral posterior discovertebral complex results in deformity of the right side of the thecal sac. Moderate stenosis of the right neural foramen secondary to decreased disc height and uncovertebral hypertrophy. At C6-C7, moderate to severe stenosis of the right neural foramen secondary to decreased disc height and uncovertebral hypertrophy. Visualized intracranial contents appear normal. The visualized neck shows no adenopathy. Visualized lung apices are clear. CT/CT cervical spine wo con IMPRESSION: A small acute slightly displaced fracture of C5 inferior endplate spur anteriorly with associated mild prevertebral edema. . The cervical spine is straightened, likely due to positioning or muscle spasm. At C5-C6, a right paracentral posterior discovertebral complex results in deformity of the right side of the thecal sac. Moderate stenosis of the right neural foramen secondary to decreased disc height and uncovertebral hypertrophy. At C6-C7, moderate to severe stenosis of the right neural foramen secondary to decreased disc height and uncovertebral hypertrophy. Electronically authenticated by: FLACO JULES Date: 01/22/2024 20:13
--- NOTE | 2024-01-22 18:28 | XR_ITS ---
The [address] [address] Patient Name: HIRAM MADRID MRN: [id number] date: 1935 Sex: F Assigned Patient Location: ER Current Patient Location: ER Accession/Order Number: [id number] Exam Date: 01/22/2024 18:49 Report Date: 01/22/2024 20:21 At the request of: THANIA NUNEZ Procedure: XR knee LT 4V EXAM: XR knee LT 4V HISTORY: fall COMPARISON: None. TECHNIQUE: The, right left oblique, lateral x-ray left knee FINDINGS: No fracture or joint effusion. No significant joint space narrowing. Normal-appearing patella. Vascular soft tissue calcification. Chondrocalcinosis XR/XR knee LT 4V IMPRESSION: Negative for fracture or joint effusion. Electronically authenticated by: HUMA ESTRADA Date: 01/22/2024 20:21
--- NOTE | 2024-01-22 18:28 | CT_ITS ---
The [address] [address] Patient Name: HIRAM MADRID MRN: [id number] date: 1935 Sex: F Assigned Patient Location: ER Current Patient Location: ER Accession/Order Number: [id number] Exam Date: 01/22/2024 18:49 Report Date: 01/22/2024 19:45 At the request of: THANIA NUNEZ Procedure: CT head/brain wo con EXAMINATION: CT head/brain wo con, 01/22/2024 6:49 PM EST HISTORY: Fall. COMPARISON: 02/10/2023 TECHNIQUE: CT scan of the head was performed without IV contrast. CT dose reduction technique was used, including Automated Exposure Control. FINDINGS: BRAIN PARENCHYMA/CSF SPACES: Ventricles are normal in size for age. There is no hemorrhage, mass effect or midline shift. Moderate low attenuation in the white matter consistent with chronic microvascular ischemia. PARANASAL SINUSES: Clear. SKULL BASE AND CALVARIUM: Normal. EXTRACRANIAL SOFT TISSUES: Normal. CT/CT head/brain wo con IMPRESSION: No acute intracranial findings. Electronically authenticated by: LEONARD JOHNSON Date: 01/22/2024 19:45
--- NOTE | 2024-01-22 18:31 | ED.GENADUL1 ---
HPI HPI - General Adult General Chief complaint: Fall Stated complaint: fall Time Seen by Provider: 01/22/24 18:13 Source: patient Mode of arrival: Wheelchair Limitations: no limitations History of Present Illness HPI narrative: Patient is an 88-year-old female who presents to the emergency department for evaluation after a fall about an hour ago. She states she does not take any blood thinners. She states her leg gave out on her and she tripped falling on her side. She states she hit the left side of her face and is now having worsened neck pain. C-collar placed by nursing staff at triage. Patient has some upper back pain. She states the neck pain is the worst. Family is concerned about a tiny skin tear to the right elbow and a tiny skin tear to the right middle finger at the distal phalanx. She also has a small abrasion to the palm of the left hand. Unknown last tetanus. No medications taken prior to arrival. Patient states she attempted to lay down and rest after falling but her neck pain got worse which prompted family to bring her to the ER. Related Data Home Medications ?Medication ?Instructions ?Recorded ?Confirmed levothyroxine 88 mcg tablet 88 mcg PO QDAY 08/10/22 06/21/23 losartan 100 mg tablet 100 mg PO QDAY 08/10/22 06/21/23 potassium chloride 20 mEq 20 meq PO TID 08/10/22 06/21/23 tablet,extended release pravastatin 80 mg tablet 80 mg PO QDAY 08/10/22 06/21/23 magnesium oxide 400 mg (241.3 mg 400 mg PO BID 02/10/23 06/21/23 magnesium) tablet citalopram 10 mg tablet (Celexa) 10 mg PO DAILY 06/15/23 06/21/23 multivitamin 1 tab PO DAILY 06/15/23 06/21/23 Previous Rx's ?Medication ?Instructions ?Recorded pantoprazole 40 mg tablet,delayed 40 mg PO DAILY #30 tabs 08/17/22 release (Protonix) amlodipine 10 mg tablet 10 mg PO DAILY #30 tabs 04/17/23 Allergies Allergy/AdvReac Type Severity Reaction Status Date / Time atorvastatin Allergy Severe HIVES Verified 01/22/24 18:28 prednisone Allergy Severe Rash Verified 01/22/24 18:28 ibuprofen (From Motrin) AdvReac Severe gi upset Verified 01/22/24 18:28 Opioid HPI Opioid Management Most Recent Opioid Data: Last Pain Scale 0 03/29/23 11:00 03/29/23 Last Pain Intensity 0 03/29/23 11:00 03/29/23 Review of Systems ROS Constitutional Denies: fever or chills Eyes Denies: change in vision or blurry vision Ears, nose, mouth, and throat Reports: neck pain; Denies: throat pain Cardiovascular Denies: chest pain Respiratory Denies: shortness of breath or cough Gastrointestinal Denies: abdominal pain, nausea or vomiting Musculoskeletal Reports: back pain, neck pain and extremity swelling; Denies: extremity pain Integumentary/Breast Denies: rash Neurological Denies: headache, numbness in extremities or weakness in extremities Hematologic/Lymphatic Denies: easy bruising or easy bleeding PFSH [facility] Medical History (Updated 01/22/24 @ 21:23 by JANET Martell) 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, lumbar region (ICD-10) 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XXXA - Unspecified fall, initial encounter (ICD-10) COVID ?U07.1 - COVID-19 (ICD-10) Hyponatremia ?E87.1 - Hypo-osmolality and hyponatremia (ICD-10) Colitis ?K52.9 - Noninfective gastroenteritis and colitis, unspecified (ICD-10) GI bleed ?K92.2 - Gastrointestinal hemorrhage, unspecified (ICD-10) Elevated blood pressure reading ?R03.0 - Elevated blood-pressure reading, without diagnosis of hypertension (ICD-10) Back pain with history of spinal surgery ?M54.9 - Dorsalgia, unspecified (ICD-10) ?Z98.890 - Other specified postprocedural states (ICD-10) Syncope ?R55 - Syncope and collapse (ICD-10) Neuropathy ?G62.9 - Polyneuropathy, unspecified (ICD-10) Kidney stones ?N20.0 - Calculus of kidney (ICD-10) Hypertension ?I10 - Essential (primary) hypertension (ICD-10) Hyperlipidemia ?E78.5 - Hyperlipidemia, unspecified (ICD-10) Hydronephrosis ?N13.30 - Unspecified hydronephrosis (ICD-10) Hard of hearing ?H91.90 - Unspecified hearing loss, unspecified ear (ICD-10) Atrial fibrillation ?I48.91 - Unspecified atrial fibrillation (ICD-10) Arthritis ?M19.90 - Unspecified osteoarthritis, unspecified site (ICD-10) Acute hyponatremia ?E87.1 - Hypo-osmolality and hyponatremia (ICD-10) Orthostasis ?I95.1 - Orthostatic hypotension (ICD-10) Syncope due to orthostatic hypotension ?I95.1 - Orthostatic hypotension (ICD-10) Surgical History History of tonsillectomy ?Z90.89 - Acquired absence of other organs (ICD-10) H/O colonoscopy ?Z98.890 - Other specified postprocedural states (ICD-10) Hx of cholecystectomy ?Z90.49 - Acquired absence of other specified parts of digestive tract (ICD-10) History of cataract extraction ?Z98.49 - Cataract extraction status, unspecified eye (ICD-10) History of salpingoophorectomy ?Z90.79 - Acquired absence of other genital organ(s) (ICD-10) ?Z90.721 - Acquired absence of ovaries, unilateral (ICD-10) History of appendectomy ?Z90.49 - Acquired absence of other specified parts of digestive tract (ICD-10) Family History (Updated 06/15/23 @ 14:28 by Eliza Goncalves RN) Mother Family history of CHF (congestive heart failure) Father Lupus Brother Family history of myocardial infarction Family history of stroke Other Arthritis Family history of hypertension Social History Within the past year, how often did you have a drink containing alcohol: never Score interpretation: A score less than 3 is consistent with normal alcohol consumption. 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 Highest level of school completed/degree received: 9th grade Are you now , , , , never or living with a partner: In a typical week, how many times do you talk on the telephone with family, friends, or neighbors: 3 or more times per week How often do you get together with friends or relatives: 3 or more times per week How often do you attend caodaism or gnosticism services: 4 or more times per year Do you belong to any clubs or organizations such as caodaism groups unions, [employer] or athletic groups, or school groups: yes Total score: 3 Score interpretation: A score of greater than or equal to 2 indicates the lowest level of social isolation. Little interest or pleasure in doing things: not at all Feeling down, depressed, or hopeless: not at all Feel stressed/tense/nervous/anxious/difficulty sleeping: not at all Life stressors: recent of family or friend Do you think of yourself as: straight/heterosexual Gender Identity: female Exam Narrative Exam Narrative: Gen.: Awake, alert, in no distress Head: Normocephalic, faint abrasion to the left cheek with no significant swelling or bruising c-collar in place ENT: Moist mucous membranes, no nasal or dental injury Respiratory: No respiratory distress, lungs clear bilaterally Cardio: Regular rate and rhythm Back: Minimal tenderness of the thoracic back, no tenderness of the lumbar spine, hips are nontender and pelvis is stable Extremities: Moves extremities equally, small abrasion and ecchymosis noted to the palm of the left hand with no bony tenderness and normal braille and talking books clerk strength. Small 1 cm skin tear to the right elbow with no bony point tenderness. No swelling or joint effusion noted of the right elbow. Small less than 1 cm skin tear to the tip of the right middle finger with minimal venous oozing. Ecchymosis noted to the left anterior knee with normal flexion and extension and no bony point tenderness Psych: Normal mood and affect Neuro: No focal neuro deficit Skin: Warm, dry Constitutional Vital Signs, click to edit/add: Last Vital Signs Temp 97.9 F 01/22/24 18:22 Pulse 76 01/22/24 18:22 Resp 20 01/22/24 18:22 BP 201/69 H 01/22/24 21:16 Pulse Ox 98 01/22/24 21:16 O2 Del Method Room Air 01/22/24 18:22 Course Vital Signs Vital signs: Vital Signs Temperature 97.9 F 01/22/24 18:22 Pulse Rate 76 01/22/24 18:22 Respiratory Rate 20 01/22/24 18:22 Pulse Oximetry 96 01/22/24 18:22 Oxygen Delivery Method Room Air 01/22/24 18:22 Temperature 97.9 F 01/22/24 18:22 Pulse Rate 76 01/22/24 18:22 Respiratory Rate 20 01/22/24 18:22 Blood Pressure 201/69 H 01/22/24 21:16 Pulse Oximetry 98 01/22/24 21:16 Oxygen Delivery Method Room Air 01/22/24 18:22 Medical Decision Making MDM Narrative Medical decision making narrative: Patient kept in c-collar, flat in the emergency department until imaging resulted. She was treated with Tylenol and tramadol for pain and declined any additional pain medication. She did not take her evening dose of blood pressure medications, she states she takes them around dinnertime so her blood pressure was elevated in the ER. She was given oral hydralazine with some improvement of blood pressure at 191/76, however after CT imaging of the neck resulted she was found to have an acute slightly depressed fracture of the inferior endplate at C5, anterior spur with mild prevertebral edema. Patient remained in a c-collar, she declined any additional pain medication but was given IV labetalol for further blood pressure control after repeat blood pressure was 191/76. I discussed the case with Dr. Chery for neurosurgery at [facility], patient will not likely need any additional intervention, but based on her age and CT findings, Dr. Wong recommended transferring the patient to [facility] to the hospitalist service with neurosurgery as a consult to evaluate for instability. Patient and family are in agreement with this treatment plan. 2121: Patient accepted by Dr. Dean for hospitalist service. Patient stable at time of transfer. Critical care time 35 minutes SUPERVISED APC VISIT, PHYSICIAN ATTESTATION: Based on the medical record the care appears appropriate. ? Medical Records Medical records reviewed: Yes I reviewed the patient's medical records Lab Data Lab results reviewed: Yes I reviewed the patient's lab results Labs: Lab Results 01/22/24 Range/Units 20:44 WBC 17.5 H (4.0-11.0) 10^3/uL RBC 4.55 (4.20-5.40) 10^6/uL Hgb 13.8 (12.0-16.0) g/dL Hct 41.1 (36.0-48.0) % MCV 90.3 (81.0-99.0) fL MCH 30.3 (26.7-34.0) pg MCHC 33.6 (29.9-35.2) g/dL RDW 13.2 (11.0-15.0) % Plt Count 402 (150-450) 10^3/uL MPV 8.7 L (9.5-13.5) fL Neut % (Auto) 77.7 H (43.0-75.0) % Lymph % (Auto) 13.8 L (20.5-60.0) % [place] % (Auto) 7.1 (1.7-12.0) % Eos % (Auto) 0.3 L (0.9-7.0) % Baso % (Auto) 0.6 (0.2-2.0) % Neut # (Auto) 13.6 H (1.4-6.5) 10^3/uL Lymph # (Auto) 2.4 (1.2-3.8) 10^3/uL [place] # (Auto) 1.3 H (0.3-0.8) 10^3/uL Eos # (Auto) 0.1 (0.0-0.7) 10^3/uL Baso # (Auto) 0.1 (0.0-0.1) 10^3/uL Abs Immat Gran (auto) 0.08 H (0.00-0.03) 10^3/uL Imm/Tot Granulo (auto) 0.5 (0.0-0.5) % PT 10.0 (9.0-11.6) sec INR 0.94 Sodium 134 L (136-145) mmol/L Potassium 3.8 (3.5-5.1) mmol/L Chloride 97 L (98-107) mmol/L Carbon Dioxide 25.8 (21.0-32.0) mmol/L Anion Gap 15.0 BUN 12.0 (7.0-18.0) mg/dL Creatinine 0.87 (0.55-1.02) mg/dL Est GFR ( Amer) >60 (>=60 mL/min/1.73m^2) Est GFR (Non-Af Amer) >60 (>=60 mL/min/1.73m^2) BUN/Creatinine Ratio 13.8 Glucose 123 H (74-106) mg/dL Calcium 9.6 (8.5-10.1) mg/dL Imaging Data CT scan - head: Attestation: I have reviewed the pertinent imaging results. Radiologist's impression: ITS Impressions Cervical Spine CT 01/22/24 18:28 IMPRESSION: A small acute slightly displaced fracture of C5 inferior endplate spur anteriorly with associated mild prevertebral edema. . The cervical spine is straightened, likely due to positioning or muscle spasm. At C5-C6, a right paracentral posterior discovertebral complex results in deformity of the right side of the thecal sac. Moderate stenosis of the right neural foramen secondary to decreased disc height and uncovertebral hypertrophy. At C6-C7, moderate to severe stenosis of the right neural foramen secondary to decreased disc height and uncovertebral hypertrophy. Electronically authenticated by: FLACO JULES Date: 01/22/2024 20:[address] 01/22/24 18:28 IMPRESSION: No acute maxillofacial fracture. An acute slightly displaced fracture of C5 inferior endplate spur anteriorly with associated prevertebral edema. 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 Electronically authenticated by: FLACO JULES Date: 01/22/2024 20:20 Hand X-Ray 01/22/24 18:28 IMPRESSION: Negative for fracture or dislocation. Electronically authenticated by: HUMA ESTRADA Date: 01/22/2024 20:[address] 01/22/24 18:28 IMPRESSION: No acute intracranial findings. Electronically authenticated by: LEONARD JOHNSON Date: 01/22/2024 19:45 Knee X-Ray 01/22/24 18:28 IMPRESSION: Negative for fracture or joint effusion. Electronically authenticated by: HUMA ESTRADA Date: 01/22/2024 20:[address] 01/22/24 18:28 IMPRESSION: No acute fracture or posttraumatic malalignment. Coronary atherosclerotic calcifications. Electronically authenticated by: FLACO JULES Date: 01/22/2024 20:05 Discharge Plan Discharge Chief Complaint: Fall Clinical Impression: Fall, Acute neck pain, C5 cervical fracture Patient Disposition: [facility] Time of Disposition Decision: 21:23 Discharge Location: [facility] Condition: Good Mode of Transportation: EMS Prescriptions / Home Meds: No Action citalopram [Celexa] 10 mg tablet 10 mg PO DAILY multivitamin Tablet 1 tab PO DAILY levothyroxine 88 mcg tablet 88 mcg PO QDAY losartan 100 mg tablet 100 mg PO QDAY pravastatin 80 mg tablet 80 mg PO QDAY potassium chloride 20 mEq tablet extended release 20 meq PO TID pantoprazole [Protonix] 40 mg tablet,delayed release (DR/EC) 40 mg PO DAILY Qty: 30 11RF magnesium oxide 400 mg (241.3 mg magnesium) tablet 400 mg PO BID amlodipine 10 mg tablet 10 mg PO DAILY Qty: 30 0RF Print Language: Portuguese Referrals: Addy Clemente MD [Primary Care Provider] - 1 week
--- OUTSIDE RECORDS SUMMARY | 2024-01-22 18:53 | XMS_ITS | CCD ---
Author Organization [facility] CliniSymd Care Team Providers Care Environmental Programs Manager Name Role Phone PHYSICIAN, DEFAULT Admitting Unavailable [...] Care Provider CALISTA ACEVES Primary Care Physician [phone] ADELSO, DR PADILLA Consulting Unavailable CARLAY ., [...] CALISTA Pereira Consulting Unavailable ACEVES, DR CALISTA Periera Primary Care Unavailable ACEVES, DR CALISTA Pereira Attending Unavailable ACEVES, DR CALISTA Pereira Admitting Unavailable ELTAHAWY, DR PADILLA Consulting Unavailable ACEVES, DR CALISTA Pereira Primary Care Unavailable ELTAHAWY, DR PADILLA Attending Unavailable ELTAHAWY, DR PADILLA Admitting Unavailable ACEVES, DR CALISTA Pereira Consulting Unavailable ACEVES, DR CALITSA Pereira Primary Care Unavailable ACEVES, DR CALISTA [...] [phone] DO Camacho Cooper Emergency Provider [facility] Addy Euceda Primary Care Physician VALERIE [...] Other Provider DO Turner Frank Attending Provider [phone] MD Turner Nielsen Emergency Provider MD Addy Daniels Primary Care Provider MD Lucy Lockhart Admit Provider [phone] MD Gaudencio Romero Other Provider Ramses, TAI CHI INSTRUCTOR-C Katie Other Provider Unavailable MD Fiona Magana Other Provider MD Cachorro Real Other Provider MD Warner Sood Other Provider MD Boni Choi Other Provider DO Turner Frank Attending Provider [phone] MD Turner Nielsen Emergency Provider MD Turner Doss Attending Provider Turner Nielsen Admitting Unavailable Turner Nielsen Attending [...] Allergy 8 Hives, Eruption of skin (disorder) [place] (2 sources) predniSONE Drug Allergy 7 [facility] (8 sources) atorvastatin; Translations: [atorvastatin] Drug Allergy 3 Unknown (qualifier value), Weal (disorder) [facility] (4 sources) Ibuprofen; Translations: [ibuprofen] Drug Allergy Unknown (qualifier value), Stomach ache (finding) [facility] (4 sources) Corticosteroids; Translations: [Corticosteroids (Glucocorticoids )] Allergy to substance 3 Unknown Reaction [facility] (1 source) atorvastatin Drug Allergy 4 [facility] (1 source) predniSONE Drug Allergy 4 [facility] Medications Current Medications Medication Drug [...] Antibacterial, Polymyxin-class Antibacterial Start: 11-16-2018 End: 11-18-2018 knbxnlcx-noczwdqrla-qsrfpnuv n (NEOSPORIN) ointment carvedilol 6.25 mg oral [...] Date: 04/19/23 Status: Ordered polyethylene glycol 3350 18003 mg powder for oral solution (1 source) Osmotic Laxative Start: 11-15-2018 polyethylene glycol (GLYCOLAX) packet 17 g Potassium Chloride (12 sources) Start: 08-10-2022 Potassium Chlo ride (Kds-Aske-Zwn 10) 20 mEq, Oral, TID Start Date: 08/10/22 Status: Ordered Start: 08-10-2022 Potassium Chlo ride (Mvp-Eygn-Kuk 10) mEq, Oral, BID Start Date: 08/10/22 [...] 0 Start Date: 08/09/22 Status: Ordered sennosides, senior living 8.6 mg oral tablet [...] # 2 tab(s), Refills(s) 0, Pharmacy: [facility], 155, cm, 08/10/22 9:03:00 EDT, Height/Length [...] Onset: 12-31-2021 Episodic 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 source) 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 Normal [facility] Ambulatory Visit Summaryon 0 06-28-2023 Ambulatory Visit [...] mg DR Tab) potassium chloride (Potassium Chloride (Hlo-Xejk-Vyc 10)) pravastatin (pravastatin 80 mg Tab) Procedures [...] or concerns Unchanged potassium chloride (Potassium Chloride (Azi-Ismv-Rhu 10)) 20 Milliequivalent By Mouth 3 times [...] mg= 1 tab(s), Oral, Daily Potassium Chloride (Bmm-Kpus-Tdv 10), 20 mEq, Oral, TID pravastatin 80 [...] influenza virus vaccine, inactivated 12/11/2014 Recorded Normal [facility] Comment on above: Result Comment: Elec tronically Signed By: ROMARIO DUMONT, Turner Connor\Date and Time Signed: 06/28/23 15:02 EDT Pathology Noteon 06-26-2023 Pathology Note [id number] #1.00TIFF Normal [facility] Operative Reporton Operative Report [id number] #1.00TIFF Normal [facility] Carlos 06-21-2023 L Specimen: [id number] Received: 06/22/23 Status: SOUT Req Num: [id number] Spec Type: Surgical Subm Dr: Turner Doss MD FACS Tissues: A Skin-Other than Cyst, tag, debridement or plastic repair (LT CHEEK) Procedures: HE, Gross/Micro L4 Age/ Patient Sex Location Account Attending Physician Hiram Madrid 87/F [place] [id number] Turner Doss MD FACS SPEC NUM: [id number] RECD: 06/22/23 STATUS: BEST REQ NUM: [id number] DI: 06/21/[address]: Turner Doss MD FACS ENTERED: 06/22/[address] [facility] [address]: Lucian Avilez SPEC TYPE: Surgical [...] Changing lesion left cheek TW CPT Codes 08918 Specimen: [id number] Received: 06/22/23 Status: EBST Kandice Num: [id number] Spec Type: Surgical Subm Dr: Turner Doss MD [facility] Tissues: A Skin-Other than Cyst, tag, debridement or plastic repair (LT CHEEK) Procedures: Antonio GOYAL/Karyna L4 Patient: Hiram Madrid [id number] (Continued) Signed (signature on file) Ángel Dodson MD 06/23/23 1634 Normal [facility] Consent for Procedure/Surger bernice 05-04-2023 Consent for Procedure/Surgery [id number] #1.00TIFF [facility] Facesheeton 05-04-2023 Facesheet [id number] #1.00TIFF [facility] Ambulatory Visit Summaryon 0 05-03-2023 Ambulatory [...] mg DR Tab) potassium chloride (Potassium Chloride (Xyu-Uvvj-Dnk 10)) pravastatin (pravastatin 80 mg Tab) Procedures [...] WEISS PA-C Where: [facility] Physician Referralon 024 Physician Referral [id number] #1.00TIFF [facility] Physician Referralon 024 Physician Referral [id number] #1.00TIFF [facility] Laboratory - Chemistry and C hemistry - challengeon 04-12-2023 Calcium [Mass/Vol] 8.9 mg/dL [facility] Chloride [Moles/Vol] 98 mmol/L [facility] CO2 [Moles/Vol] 25.9 mmol/L [facility] Creatinine [Mass/Vol] 0.76 mg/dL [facility] Glucose [Mass/Vol] 113 mg/dL [facility] Potassium [Moles/Vol] 4.0 mmol/L [facility] Sodium [Moles/Vol] 135 mmol/L [facility] Urea nitrogen [Mass/Vol] 12.0 mg/dL [facility] Basic Metabolic Panelon 03-23 Creatinine Clr Calc Pharmacy 42.78 Normal [facility] Comment on above: Result Comment: PERF ORMED BY: [place] [address] PATHOLOGIST CERTIFIED PHARMACY TECH GOSIA MCADAMS M.D. Performed By: #### T 4F, BMP #### [address] GFR/1.73 sq M.predicted MDRD (S/P/Bld) [Vol rate/Area] mL/min/{1.73_m2} Normal [facility] Comment on above: Performed By: #### T 4F, BMP #### [place] [address] [place] Calcium [Mass/volume] in Ser um or PlasmaOrdered By: Turner Frank on 04-05-2023 Calcium [Mass/Vol] 9.2 mg/dL Normal 8.6-10.3 [facility] Comment on above: Performed By: #### T 4F, BMP #### [facility] [address] [place] [address] [place] Carbon dioxide, total [Moles /volume] in Serum or PlasmaOrdered By: Turner Frank on 04-05-2023 CO2 [Moles/Vol] 27.7 mmol/L Normal 21.0-31.[address] [facility] Comment on above: Performed By: #### T 4F, BMP #### [facility] [address] [place] [address] [place] Chloride [Moles/volume] in S willa or PlasmaOrdered By: Turner Frank on 04-05-2023 Chloride [Moles/Vol] 91 mmol/L Low 98-107 [facility] Comment on above: Performed By: #### T 4F, BMP #### [facility] [address] Creatinine [Mass/volume] in Serum or PlasmaOrdered By: Turner Frank on 04-05-2023 Creatinine [Mass/Vol] 0.56 mg/dL Low 0.60-1.20 [facility] Comment on above: Performed By: #### T 4F, BMP #### [facility] [address] Glucose [Mass/volume] in Ser um or PlasmaOrdered By: Turner Frank on 04-05-2023 Glucose [Mass/Vol] 116 mg/dL High 70-100 [facility] Comment on above: ADA recommended refe rence rangeRandom Glucose Reference Range is dependent on time and content of last meal. Glucose of more than 200 mg/dL in a nonstressed, ambulatory subject supports the diagnosis of Diabetes Mellitus. Result Comment: [place] Glucose Reference Range is dependent on time and content of last meal. Glucose of more than 200 mg/dL in a nonstressed, ambulatory subject supports the diagnosis of Diabetes Mellitus. ADA recommended reference range Performed By: #### T 4F, BMP #### [facility] [address] [place] [address] No Panel InformationOrdered By: Turner Frank on 04-05-2023 Estimated GFR (CKD-EPI) > 60.0 mL/Min [facility] Creatinine Clearance (Chem 42.78 [facility] Potassium [Moles/volume] in Serum or PlasmaOrdered By: Turner Frank on 04-05-2023 Potassium [Moles/Vol] 3.5 mmol/L Normal 3.5-5.1 [facility] Comment on above: Performed By: #### T 4F, BMP #### [facility] [address] Serum or plasma anion gap de terminationOrdered By: Turner Frank on 04-05-2023 Anion gap [Moles/Vol] 14.8 mmol/L Normal 6.0-15.0 [facility] Comment on above: Performed By: #### T 4F, BMP #### [address] Sodium [Moles/volume] in Ser um or PlasmaOrdered By: Turner Frank on 04-05-2023 Sodium [Moles/Vol] 130 mmol/L Low 136-145 [facility] Comment on above: Performed By: #### T 4F, BMP #### [address] Urea nitrogen [Mass/volume] in Serum or PlasmaOrdered By: Turner Frank on 04-05-2023 Urea nitrogen [Mass/Vol] 8 mg/dL Normal 7-25 [facility] Comment on above: Performed By: #### T 4F, BMP #### [address] Basic Metabolic Panelon 03-23 Anion gap [Moles/Vol] 10.8 mmol/L Normal 6.0-15.0 [facility] Comment on above: Performed By: #### T 4F, BMP #### [address] Calcium [Mass/Vol] 9.0 mg/dL Normal 8.6-10.3 [facility] Comment on above: Performed By: #### T 4F, BMP #### [address] Chloride [Moles/Vol] 92 mmol/L Low 98-107 [facility] Comment on above: Performed By: #### T 4F, BMP #### [address] CO2 [Moles/Vol] 26.3 mmol/L Normal 21.0-31.0 [facility] Comment on above: Performed By: #### T 4F, BMP #### [place] [address] [place] Creatinine [Mass/Vol] 0.61 mg/dL Normal 0.60-1.20 [facility] Comment on above: Performed By: #### T 4F, BMP #### [place] [address] [place] Creatinine Clr Calc Pharmacy 42.78 Normal [facility] Comment on above: Result Comment: PERF ORMED BY: [place] [address] PATHOLOGIST CERTIFIED PHARMACY TECH GOSIA MCADAMS M.D. Performed By: #### T 4F, BMP #### [place] [address] [place] GFR/1.73 sq M.predicted MDRD (S/P/Bld) [Vol rate/Area] mL/min/{1.73_m2} Normal [facility] Comment on above: Performed By: #### T 4F, BMP #### [address] Glucose [Mass/Vol] 177 mg/dL High 70-100 [facility] Comment on above: Result Comment: [place] Glucose Reference Range is dependent on time and content of last meal. Glucose of more than 200 mg/dL in a nonstressed, ambulatory subject supports the diagnosis of Diabetes Mellitus. ADA recommended reference range Performed By: #### T 4F, BMP #### [place] [address] [place] Potassium [Moles/Vol] 3.1 mmol/L Low 3.5-5.1 [facility] Comment on above: Performed By: #### T 4F, BMP #### [place] [address] [place] Sodium [Moles/Vol] 126 mmol/L Low 136-145 [facility] Comment on above: Performed By: #### T 4F, BMP #### [place] [address] [place] Urea nitrogen [Mass/Vol] 7 mg/dL Normal 7-25 [facility] Comment on above: Performed By: #### T 4F, BMP #### [place] [address] Anion gap [Moles/Vol] 10.3 mmol/L Normal 6.0-15.0 [facility] Comment on above: Performed By: #### T 4F, BMP #### [address] Calcium [Mass/Vol] 8.6 mg/dL Normal 8.6-10.3 [facility] Comment on above: Performed By: #### T 4F, BMP #### [address] Chloride [Moles/Vol] 93 mmol/L Low 98-107 [facility] Comment on above: Performed By: #### T 4F, BMP #### [address] CO2 [Moles/Vol] 27.2 mmol/L Normal 21.0-31.0 [facility] Comment on above: Performed By: #### T 4F, BMP #### [address] Creatinine [Mass/Vol] 0.59 mg/dL Low 0.60-1.20 [facility] Comment on above: Performed By: #### T 4F, BMP #### [address] Creatinine Clr Calc Pharmacy 42.39 Normal [facility] Comment on above: Performed By: #### T 4F, BMP #### [place] [address] [place] GFR/1.73 sq M.predicted MDRD (S/P/Bld) [Vol rate/Area] mL/min/{1.73_m2} Normal [facility] Comment on above: Performed By: #### T 4F, BMP #### [address] Glucose [Mass/Vol] 107 mg/dL High 70-100 [facility] Comment on above: Result Comment: [place] Glucose Reference Range is dependent on time and content of last meal. Glucose of more than 200 mg/dL in a nonstressed, ambulatory subject supports the diagnosis of Diabetes Mellitus. ADA recommended reference range Performed By: #### T 4F, BMP #### [address] Potassium [Moles/Vol] 3.5 mmol/L Normal 3.5-5.1 [facility] Comment on above: Performed By: #### T 4F, BMP #### [address] Sodium [Moles/Vol] 127 mmol/L Low 136-145 [facility] Comment on above: Performed By: #### T 4F, BMP #### [address] Urea nitrogen [Mass/Vol] 7 mg/dL Normal 7-25 [facility] Comment on above: Performed By: #### T 4F, BMP #### [address] Thyroxine (T4) free [Mass/vo lume] in Serum or PlasmaOrdered By: Turner Frank on 04-04-2023 Free T4 [Mass/Vol] 1.41 ng/dL High 0.61-1.12 [facility] Comment on above: Result Comment: PERF ORMED BY: [place] [address] PATHOLOGIST CERTIFIED PHARMACY TECH GOSIA MCADAMS M.D. Performed By: #### T 4F, BMP #### [place] [address] [place] Alanine aminotransferase [En zymatic activity/volume] in Serum or PlasmaOrdered By: Natividad Gregory on 04-03-2023 ALT [Catalytic activity/Vol] 14 U/L Normal 7-52 [facility] Comment on above: Performed By: #### C BC, CMP #### [place] [address] [place] Albumin [Mass/volume] in Ser um or Plasma by Bromocresol green (BCG) dye binding methoOrdered By: Natividad Gregory on 04-03-2023 Albumin BCG dye [Mass/Vol] 3.7 g/dL 3.5-5.7 [facility] Alkaline phosphatase [Enzyma tic activity/volume] in Serum or PlasmaOrdered By: Natividad Gregory on 04-03-2023 ALP [Catalytic activity/Vol] 56 U/L Normal 34-104 [facility] Comment on above: Performed By: #### C BC, CMP #### [address] Aspartate aminotransferase [ Enzymatic activity/volume] in Serum or PlasmaOrdered By: Natividad Gricele on 04-03-2023 AST [Catalytic activity/Vol] 20 U/L Normal 13-39 [facility] Comment on above: Performed By: #### C BC, CMP #### [address] Automated basophil %Ordered By: Natividad Gregory on 04-03-2023 Basophils/100 WBC (Bld) 0.6 % Normal . [facility] Comment on above: Performed By: #### C BC, CMP #### [address] Automated basophil countOrde red By: Natividad Gregory on 04-03-2023 Basophils (Bld) [#/Vol] 0.1 10*3/uL Normal 0.0-0.2 [facility] Comment on above: Result Comment: PERF ORMED BY: [place] [address] PATHOLOGIST CERTIFIED PHARMACY TECH GOSIA MCADAMS M.D. Performed By: #### C BC, CMP #### [address] Automated blood monocyte cou ntOrdered By: Natividad Gregory on 04-03-2023 Monocytes (Bld) [#/Vol] 1.1 10*3/uL High 0.0-0.8 [facility] Comment on above: Performed By: #### C BC, CMP #### [address] Automated eosinophil %Ordere d By: Natividad Gregory on 04-03-2023 Eosinophils/100 WBC (Bld) 0.8 % Normal . [facility] Comment on above: Performed By: #### C BC, CMP #### [address] Automated eosinophil countOr dered By: Natividad Gregory on 04-03-2023 Eosinophils (Bld) [#/Vol] 0.1 10*3/uL Normal 0.0-0.45 [facility] Comment on above: Performed By: #### C BC, CMP #### [address] Automated monocyte %Ordered By: Natividad Gregory on 04-03-2023 Monocytes/100 WBC (Bld) 10.3 % Normal . [facility] Comment on above: Performed By: #### C BC, CMP #### [address] Automated neutrophil %Ordere d By: Natividad Gregory on 04-03-2023 Neutrophils/100 WBC (Bld) 72.7 % Normal . [facility] Comment on above: Performed By: #### C BC, CMP #### [address] Basic Metabolic Panelon 03-23 Anion gap [Moles/Vol] 13.3 mmol/L Normal 6.0-15.0 [facility] Comment on above: Performed By: #### T 4F, BMP #### [address] Calcium [Mass/Vol] 8.9 mg/dL Normal 8.6-10.3 [facility] Comment on above: Performed By: #### T 4F, BMP #### [address] Chloride [Moles/Vol] 86 mmol/L Low 98-107 [facility] Comment on above: Performed By: #### T 4F, BMP #### [address] CO2 [Moles/Vol] 26.0 mmol/L Normal 21.0-31.0 [facility] Comment on above: Performed By: #### T 4F, BMP #### [address] Creatinine [Mass/Vol] 0.65 mg/dL Normal 0.60-1.20 [facility] Comment on above: Performed By: #### T 4F, BMP #### [place] [address] [place] Creatinine Clr Calc Pharmacy 42.39 Normal [facility] Comment on above: Result Comment: PERF ORMED BY: [place] [address] PATHOLOGIST CERTIFIED PHARMACY TECH GOSIA MCADAMS M.D. Performed By: #### T 4F, BMP #### [place] [address] [place] GFR/1.73 sq M.predicted MDRD (S/P/Bld) [Vol rate/Area] mL/min/{1.73_m2} Normal [facility] Comment on above: Performed By: #### T 4F, BMP #### [address] Glucose [Mass/Vol] 170 mg/dL High 70-100 [facility] Comment on above: Result Comment: [facility] Glucose Reference Range is dependent on time and content of last meal. Glucose of more than 200 mg/dL in a nonstressed, ambulatory subject supports the diagnosis of Diabetes Mellitus. ADA recommended reference range Performed By: #### T 4F, BMP #### [address] Potassium [Moles/Vol] 3.3 mmol/L Low 3.5-5.1 [facility] Comment on above: Performed By: #### T 4F, BMP #### [address] Sodium [Moles/Vol] 122 mmol/L Off scale low 136-145 [facility] Comment on above: Result Comment: Crit ical Result Called to and read back by: NOT FIRST at: 04/03/2023 19:17:43 by:[id number] Performed By: #### T 4F, BMP #### [facility] [address] Urea nitrogen [Mass/Vol] 7 mg/dL Normal 7-25 [facility] Comment on above: Performed By: #### T 4F, BMP #### [facility] [address] Anion gap [Moles/Vol] 14.6 mmol/L Normal 6.0-15.0 [facility] Comment on above: Performed By: #### T 4F, BMP #### [facility] [address] Calcium [Mass/Vol] 8.8 mg/dL Normal 8.6-10.3 [facility] Comment on above: Performed By: #### T 4F, BMP #### [place] [address] [place] Chloride [Moles/Vol] 81 mmol/L Low 98-107 [facility] Comment on above: Performed By: #### T 4F, BMP #### [place] [address] [place] CO2 [Moles/Vol] 26.8 mmol/L Normal 21.0-31.0 [facility] Comment on above: Performed By: #### T 4F, BMP #### [address] Creatinine [Mass/Vol] 0.61 mg/dL Normal 0.60-1.20 [facility] Comment on above: Performed By: #### T 4F, BMP #### [facility] [address] [place] [address] [place] Creatinine Clr Calc Pharmacy 42.39 Normal [facility] Comment on above: Result Comment: PERF ORMED BY: [place] [address] PATHOLOGIST CERTIFIED PHARMACY TECH GOSIA MCADAMS M.D. Performed By: #### T 4F, BMP #### [place] [address] [place] GFR/1.73 sq M.predicted MDRD (S/P/Bld) [Vol rate/Area] mL/min/{1.73_m2} Normal [facility] Comment on above: Performed By: #### T 4F, BMP #### [facility] [address] Glucose [Mass/Vol] 108 mg/dL High 70-100 [facility] Comment on above: Result Comment: [place] Glucose Reference Range is dependent on time and content of last meal. Glucose of more than 200 mg/dL in a nonstressed, ambulatory subject supports the diagnosis of Diabetes Mellitus. ADA recommended reference range Performed By: #### T 4F, BMP #### [address] Potassium [Moles/Vol] 3.4 mmol/L Low 3.5-5.1 [facility] Comment on above: Performed By: #### T 4F, BMP #### [place] [address] [place] Sodium [Moles/Vol] 119 mmol/L Off scale low 136-145 [facility] Comment on above: Result Comment: Crit ical Result Called to and read back by: NOT FIRST TIME CRITICAL at: 04/03/2023 14:56:28 by:[email or web address] Performed By: #### T 4F, BMP #### [place] [address] [place] Urea nitrogen [Mass/Vol] 7 mg/dL Normal 7-25 [facility] Comment on above: Performed By: #### T 4F, BMP #### [place] [id number] [place] Anion gap [Moles/Vol] 16.6 mmol/L High 6.0-15.0 [facility] Comment on above: Performed By: #### T 4F, BMP #### [place] [address] [place] Calcium [Mass/Vol] 9.0 mg/dL Normal 8.6-10.3 [facility] Comment on above: Performed By: #### T 4F, BMP #### [address] Chloride [Moles/Vol] 81 mmol/L Low 98-107 [facility] Comment on above: Performed By: #### T 4F, BMP #### [address] CO2 [Moles/Vol] 25.7 mmol/L Normal 21.0-31.0 [facility] Comment on above: Performed By: #### T 4F, BMP #### [address] Creatinine [Mass/Vol] 0.63 mg/dL Normal 0.60-1.20 [facility] Comment on above: Performed By: #### T 4F, BMP #### [address] Creatinine Clr Calc Pharmacy 42.39 Normal [facility] Comment on above: Result Comment: PERF ORMED BY: [place] [address] PATHOLOGIST CERTIFIED PHARMACY TECH GOSIA MCADAMS M.D. Performed By: #### T 4F, BMP #### [address] GFR/1.73 sq M.predicted MDRD (S/P/Bld) [Vol rate/Area] mL/min/{1.73_m2} Normal [facility] Comment on above: Performed By: #### T 4F, BMP #### [address] Glucose [Mass/Vol] 123 mg/dL High 70-100 [facility] Comment on above: Result Comment: [place] Glucose Reference Range is dependent on time and content of last meal. Glucose of more than 200 mg/dL in a nonstressed, ambulatory subject supports the diagnosis of Diabetes Mellitus. ADA recommended reference range Performed By: #### T 4F, BMP #### [address] Potassium [Moles/Vol] 3.3 mmol/L Low 3.5-5.1 [facility] Comment on above: Performed By: #### T 4F, BMP #### [address] Sodium [Moles/Vol] 120 mmol/L Off scale low 136-145 [facility] Comment on above: Result Comment: Crit ical Result Called to and read back by: NOT FIRST TIME CRITICAL at: 04/03/2023 13:00:21 by:[email or web address] Performed By: #### T 4F, BMP #### [address] Urea nitrogen [Mass/Vol] 7 mg/dL Normal 7-25 [facility] Comment on above: Performed By: #### T 4F, BMP #### [address] Anion gap [Moles/Vol] 10.9 mmol/L Normal 6.0-15.0 Th [facility] Comment on above: Performed By: #### T 4F, BMP #### [address] Calcium [Mass/Vol] 8.6 mg/dL Normal 8.6-10.3 The [facility] Comment on above: Performed By: #### T 4F, BMP #### [address] Chloride [Moles/Vol] 82 mmol/L Low 98-107 [facility] Comment on above: Performed By: #### T 4F, BMP #### [place] [address] [place] CO2 [Moles/Vol] 28.3 mmol/L Normal 21.0-31.0 The [facility] Comment on above: Performed By: #### T 4F, BMP #### [place] [address] [place] Creatinine [Mass/Vol] 0.60 mg/dL Normal 0.60-1.20 [facility] Comment on above: Performed By: #### T 4F, BMP #### [place] [address] [place] Glucose [Mass/Vol] 121 mg/dL High 70-100 The [facility] Comment on above: Result Comment: [place] Glucose Reference Range is dependent on time and content of last meal. Glucose of more than 200 mg/dL in a nonstressed, ambulatory subject supports the diagnosis of Diabetes Mellitus. ADA recommended reference range Performed By: #### T 4F, BMP #### [address] Potassium [Moles/Vol] 3.2 mmol/L Low 3.5-5.1 [facility] Comment on above: Performed By: #### T 4F, BMP #### [address] Sodium [Moles/Vol] 118 mmol/L Off scale low 136-145 [facility] Comment on above: Result Comment: Crit ical Result Called to and read back by: NOT FIRST TIME at: 04/03/2023 08:56:25 by:[id number] Performed By: #### T 4F, BMP #### [address] Urea nitrogen [Mass/Vol] 5 mg/dL Low 7-25 [facility] Comment on above: Performed By: #### T 4F, BMP #### [address] Anion gap [Moles/Vol] 14.1 mmol/L Normal 6.0-15.0 Th [facility] Comment on above: Performed By: #### T 4F, BMP #### [place] [address] [place] Calcium [Mass/Vol] 8.3 mg/dL Low 8.6-10.3 The [facility] Comment on above: Performed By: #### T 4F, BMP #### [place] [address] [place] Chloride [Moles/Vol] 82 mmol/L Low 98-107 [facility] Comment on above: Performed By: #### T 4F, BMP #### [place] [address] [place] CO2 [Moles/Vol] 25.8 mmol/L Normal 21.0-31.0 The [facility] Comment on above: Performed By: #### T 4F, BMP #### [address] Creatinine [Mass/Vol] 0.59 mg/dL Low 0.60-1.20 [facility] Comment on above: Performed By: #### T 4F, BMP #### [place] [address] [place] Creatinine Clr Calc Pharmacy 42.94 Normal [facility] Comment on above: Result Comment: PERF ORMED BY: [place] [address] PATHOLOGIST CERTIFIED PHARMACY TECH GOSIA MCADAMS M.D. Performed By: #### T 4F, BMP #### [place] [address] [place] GFR/1.73 sq M.predicted MDRD (S/P/Bld) [Vol rate/Area] mL/min/{1.73_m2} Normal [facility] Comment on above: Performed By: #### T 4F, BMP #### [address] Glucose [Mass/Vol] 102 mg/dL High 70-100 The [facility] Comment on above: Result Comment: [place] Glucose Reference Range is dependent on time and content of last meal. Glucose of more than 200 mg/dL in a nonstressed, ambulatory subject supports the diagnosis of Diabetes Mellitus. ADA recommended reference range Performed By: #### T 4F, BMP #### [address] Potassium [Moles/Vol] 2.9 mmol/L Off scale low 3.5-5.1 [facility] Comment on above: Result Comment: Crit ical Result Called to and read back by: TADEO BEAUCHAMP at: 04/03/2023 03:37:07 by:[id number] Performed By: #### T 4F, BMP #### [place] [address] [place] Sodium [Moles/Vol] 119 mmol/L Off scale low 136-145 [facility] Comment on above: Result Comment: Crit ical Result Called to and read back by: TADEO BEAUCHAMP at: 04/03/2023 03:37:07 by:[id number] Performed By: #### T 4F, BMP #### [address] Urea nitrogen [Mass/Vol] 6 mg/dL Low 7-25 [facility] Comment on above: Performed By: #### T 4F, BMP #### [address] Bilirubin.total [Mass/volume ] in Serum or PlasmaOrdered By: Natividad Gregory on 04-03-2023 Bilirubin [Mass/Vol] 0.7 mg/dL Normal 0.3-1.0 [facility] Comment on above: Performed By: #### C BC, CMP #### [address] Complete Blood Count Auto Di ffon 04-03-2023 Mean Corpuscular HGB Conc 35.8 g/dL High 32.0-35.0 [facility] Comment on above: Performed By: #### C BC, CMP #### [address] NRBC% 0.3 /100{WBC} Normal 0-0.5 The [facility] Comment on above: Performed By: #### C BC, CMP #### [address] Comprehensive Metabolic Pane carlos 04-03-2023 Albumin [Mass/Vol] 3.7 g/dL Normal 3.5-5.7 [facility] Comment on above: Performed By: #### C BC, CMP #### [address] Anion gap [Moles/Vol] 12.9 mmol/L Normal 6.0-15.0 Th [facility] Comment on above: Performed By: #### C BC, CMP #### [address] Calcium [Mass/Vol] 8.5 mg/dL Low 8.6-10.3 [facility] Comment on above: Performed By: #### C BC, CMP #### [address] Chloride [Moles/Vol] 81 mmol/L Low 98-107 [facility] Comment on above: Performed By: #### C BC, CMP #### [address] CO2 [Moles/Vol] 26.1 mmol/L Normal 21.0-31.0 The [facility] Comment on above: Performed By: #### C BC, CMP #### [address] Creatinine [Mass/Vol] 0.58 mg/dL Low 0.60-1.20 [facility] Comment on above: Performed By: #### C BC, CMP #### [place] [address] [place] Creatinine Clr Calc Pharmacy 42.94 Normal [facility] Comment on above: Result Comment: PERF ORMED BY: [place] [address] PATHOLOGIST CERTIFIED PHARMACY TECH GOSIA MCADAMS M.D. Performed By: #### C BC, CMP #### [place] [address] [place] GFR/1.73 sq M.predicted MDRD (S/P/Bld) [Vol rate/Area] mL/min/{1.73_m2} Normal [facility] Comment on above: Performed By: #### C BC, CMP #### [address] Glucose [Mass/Vol] 136 mg/dL High 70-100 The [facility] Comment on above: Result Comment: [place] Glucose Reference Range is dependent on time and content of last meal. Glucose of more than 200 mg/dL in a nonstressed, ambulatory subject supports the diagnosis of Diabetes Mellitus. ADA recommended reference range Performed By: #### C BC, CMP #### [address] Potassium [Moles/Vol] 3.0 mmol/L Low 3.5-5.1 [facility] Comment on above: Performed By: #### C BC, CMP #### [address] Sodium [Moles/Vol] 117 mmol/L Off scale low 136-145 [facility] Comment on above: Result Comment: Crit ical Result Called to and read back by: EDMAR PATEL at: 04/03/2023 06:09:08 by:[id number] Performed By: #### C BC, CMP #### [address] Urea nitrogen [Mass/Vol] 6 mg/dL Low 7-25 [facility] Comment on above: Performed By: #### C BC, CMP #### [address] Erythrocyte distribution wid th [Ratio] by Automated countOrdered By: Natividad Gregory on 04-03-2023 Erythrocyte distribution width (RBC) [Ratio] 13.9 % Normal 11.9-15.3 [facility] Comment on above: Performed By: #### C BC, CMP #### [address] Erythrocytes [#/volume] in B lood by Automated countOrdered By: Natividad Gregory on 04-03-2023 RBC (Bld) [#/Vol] 4.02 10*6/uL Normal 3.60-5.00 [facility] Comment on above: Performed By: #### C BC, CMP #### [address] Hematocrit [Volume Fraction] of Blood by Automated countOrdered By: Natividad Gregory on 04-03-2023 Hematocrit (Bld) [Volume fraction] 35.5 % Normal 34.0-46.4 [facility] Comment on above: Performed By: #### C BC, CMP #### [address] Hemoglobin [Mass/volume] in BloodOrdered By: Natividad Gregory on 04-03-2023 Hemoglobin (Bld) [Mass/Vol] 12.7 g/dL Normal 11.8-15.4 [facility] Comment on above: Performed By: #### C BC, CMP #### [address] Leukocytes [#/volume] correc sofiya for nucleated erythrocytes in Blood by Automated counOrdered By: Natividad Gregory on 04-03-2023 WBC corrected for nucl RBC Auto (Bld) [#/Vol] 10.6 10*3/uL 3.8-11.6 [facility] Leukocytes [#/volume] in Blo od by Automated countOrdered By: Natividad Gregory on 04-03-2023 WBC (Bld) [#/Vol] 10.6 10*3/uL Normal 3.8-11.6 [facility] Comment on above: Performed By: #### C BC, CMP #### [place] [address] [place] Lymphocytes [#/volume] in Bl ood by Automated countOrdered By: Natividad Gregory on 04-03-2023 Lymphocytes (Bld) [#/Vol] 1.7 10*3/uL Normal 1.00-4.8 [facility] Comment on above: Performed By: #### C BC, CMP #### [place] [address] [place] Lymphocytes/100 leukocytes i n Blood by Automated countOrdered By: Natividad Gregory on 04-03-2023 Lymphocytes/100 WBC (Bld) 15.6 % Normal . [facility] Comment on above: Performed By: #### C BC, CMP #### [place] [address] [place] MCH [Entitic mass] by Automa sofiya countOrdered By: Natividad Gregory on 04-03-2023 MCH (RBC) [Entitic mass] 31.6 pg Normal 24.7-34.3 [facility] Comment on above: Performed By: #### C BC, CMP #### [address] MCHC Auto (RBC) [Mass/Vol]Or dered By: Natividad Gregory on 04-03-2023 MCHC (RBC) [Mass/Vol] 35.8 g/dL 32.0-35.0 [facility] MCV [Entitic volume] by Auto mated countOrdered By: Natividad Gregory on 04-03-2023 MCV (RBC) [Entitic vol] 88.3 fL Normal 80-100 F [facility] Comment on above: Performed By: #### C BC, CMP #### [address] Neutrophils [#/volume] in Bl ood by Automated countOrdered By: Natividad Gregory on 04-03-2023 Neutrophils (Bld) [#/Vol] 7.7 10*3/uL Normal 1.8-7.7 [facility] Comment on above: Performed By: #### C BC, CMP #### [address] Nucleated erythrocytes [Pres ence] in Blood by Automated countOrdered By: Natividad Gregory on 04-03-2023 Nucleated RBC Auto Ql (Bld) 0.3 /100{WBC} 0-0.5 [facility] Platelet mean volume [Entiti c volume] in Blood by Automated countOrdered By: Natividad Gregory on 04-03-2023 Platelet mean volume (Bld) [Entitic vol] 7.0 fL Normal 6.3-10.7 [facility] Comment on above: Performed By: #### C BC, CMP #### [place] [address] [place] Platelets [#/volume] in Bloo d by Automated countOrdered By: Natividad Gregory on 04-03-2023 Platelets (Bld) [#/Vol] 424 10*3/uL Normal 150-450 [facility] Comment on above: Performed By: #### C BC, CMP #### [address] Protein [Mass/volume] in Ser um or PlasmaOrdered By: Natividad Gregory on 04-03-2023 Protein [Mass/Vol] 6.1 g/dL Low 6.4-8.9 [facility] Comment on above: Performed By: #### C BC, CMP #### [address] Serum globulin measurement b y calculation (mass/volume)Ordered By: Natividad Gregory on 04-03-2023 Globulin (S) [Mass/Vol] 2.4 g/dL Normal F [facility] Comment on above: Performed By: #### C BC, CMP #### [address] Serum or plasma albumin/glob ulin mass ratioOrdered By: Natividad Gregory on 04-03-2023 Albumin/Globulin [Mass ratio] 1.5 {ratio} Normal [facility] Comment on above: Performed By: #### C BC, CMP #### [address] Sodiumon 04-03-2023 Sodium [Moles/Vol] 124 mmol/L Off scale low 136-145 [facility] Comment on above: Result Comment: Crit ical Result Called to and read back by: SAMMIE GOULD at: 04/03/2023 22:42:55 by:[email or web address] PERFORMED BY: [place] [address] PATHOLOGIST CERTIFIED PHARMACY TECH GOSIA MCADAMS M.D. Performed By: #### N A #### [address] Basic Metabolic Panelon 03-23 Anion gap [Moles/Vol] 12.8 mmol/L Normal 6.0-15.0 Th e [facility] Comment on above: Performed By: #### T SH3, MG, BMP #### [address] Calcium [Mass/Vol] 8.8 mg/dL Normal 8.6-10.3 [facility] Comment on above: Performed By: #### T SH3, MG, BMP #### [facility] [address] [place] [address] [place] Chloride [Moles/Vol] 81 mmol/L Low 98-107 [facility] Comment on above: Performed By: #### T SH3, MG, BMP #### [facility] [address] CO2 [Moles/Vol] 26.3 mmol/L Normal 21.0-31.0 [facility] Comment on above: Performed By: #### T SH3, MG, BMP #### [address] Creatinine [Mass/Vol] 0.59 mg/dL Low 0.60-1.20 [facility] Comment on above: Performed By: #### T SH3, MG, BMP #### [place] [address] [place] Creatinine Clr Calc Pharmacy 42.94 Normal [facility] Comment on above: Performed By: #### T SH3, MG, BMP #### [place] [address] [place] GFR/1.73 sq M.predicted MDRD (S/P/Bld) [Vol rate/Area] mL/min/{1.73_m2} Normal [facility] Comment on above: Performed By: #### T SH3, MG, BMP #### [place] [address] [place] Glucose [Mass/Vol] 122 mg/dL High 70-100 [facility] Comment on above: Result Comment: [place] Glucose Reference Range is dependent on time and content of last meal. Glucose of more than 200 mg/dL in a nonstressed, ambulatory subject supports the diagnosis of Diabetes Mellitus. ADA recommended reference range Performed By: #### T SH3, MG, BMP #### [address] Potassium [Moles/Vol] 3.1 mmol/L Low 3.5-5.1 [facility] Comment on above: Performed By: #### T SH3, MG, BMP #### [facility] [address] [place] [address] Sodium [Moles/Vol] 117 mmol/L Off scale low 136-145 [facility] Comment on above: Result Comment: Crit ical Result Called to and read back by: GERMAIN BEAUCHAMP at: 04/02/2023 21:52:44 by:[id number] Performed By: #### T SH3, MG, BMP #### [facility] [address] [place] [address] Urea nitrogen [Mass/Vol] 7 mg/dL Normal 7-25 [facility] Comment on above: Performed By: #### T SH3, MG, BMP #### [address] Magnesium [Mass/volume] in S willa or PlasmaOrdered By: Natividad Gregory on 04-02-2023 Magnesium [Mass/Vol] 1.9 mg/dL Normal 1.9-2.7 [facility] Comment on above: Performed By: #### T SH3, MG, BMP #### [facility] [address] [place] [address] No Panel InformationOrdered By: Natividad Gregory on 04-02-2023 Urine Osmolality 298 mosm 250-[address] [facility] Osmolality, Urineon 04-02-19 24 Osmolality, Urine 298 mosm Normal 250-900 [facility] Comment on above: Result Comment: PERF ORMED BY: [place] [address] PATHOLOGIST CERTIFIED PHARMACY TECH GOSIA MCADAMS M.D. Performed By: #### U ROSMO, KERRY #### [facility] [address] [place] [address] [place] Sodium [Moles/volume] in Uri neOrdered By: Natividad Gregory on 04-02-2023 Sodium (U) [Moles/Vol] 79 mmol/L Normal [facility] Comment on above: No reference range e stablished Result Comment: No r eference range established PERFORMED BY: [facility] [address] [place] [address] PATHOLOGIST CERTIFIED PHARMACY TECH GOSIA MCADAMS M.D. Performed By: #### U ROSMO, KERRY #### [facility] [address] [place] [id number] [facility] Thyrotropin [Units/volume] i n Serum or PlasmaOrdered By: Natividad Gregory on 04-02-2023 TSH Qn 5.76 m[IU]/L High 0.45-5.33 [facility] Comment on above: Result Comment: PERF ORMED BY: [place] [address] PATHOLOGIST CERTIFIED PHARMACY TECH GOSIA MCADAMS M.D. Performed By: #### T 4F, BMP #### [facility] [address] [place] [address] Office Visiton 01-11-2023 Follow-up visit [id number] Hiram Madrid 1935 F Date Provider Department Center 01/11/2023 [facility] G[facility]PAR [facility] Family History Problem Relation Age of Onset Hypertension Mother Lupus Mother Coronary artery disease Mother Heart attack Mother Hypertension Father Aneurysm Father Coronary artery disease Father Hypertension Sister Lupus Sister Family Status - Relation Status Age at Mother Father Sister Level of Service:12250 MO OFFICE/OUTPATIENT ESTABLISHED MOD MDM 30-39 MIN Normal [facility] Lab Reportson 12-23-2022 Lab Reports [id number] #1.00TIFF Normal [facility] Urology Office/Clinic Noteon 12-23-2022 Urology Office/Clinic [...] Pt presented to ER due to syncope. [place] was found incidentally on CT. CT AP [...] Contact Information ABHISHEK NOONAN, MIKAYLA Pereira, URL [address] [place] [address] [phone] Additional Instructions: 6 mos w/ renal fxn [...] Tab losartan 100 mg Tab Potassium Chloride (Pdf-Gvzg-Dux 10), Oral, BID pravastatin 80 mg Tab [...] vaccine, (more content not included)... Normal [facility] Comment on above: Result Comment: Elec tronically Signed By: MIKAYLA WEISS PA-C\.br\Date and Time Signed: 12/23/22 12:13 EDT\.br\Electronically Co-Signed By: Jacquie Gan\.br\Date and Time Co-Signed: 12/22/22 12:27 EDT Ambulatory Visit Summaryon 1 02-21-2022 Ambulatory Visit Summary HIRAM MADRID :1935 Visit Date:12/22/2022 Ambulatory Visit Instructions Your Diagnosis Hydronephrosis, right Ureteral stenosis Tests Performed Urnls Dip Stick Auto w/o Microscopy POC 90564 US Renal -- Results Pending -- Please [...] 100 mg Tab) potassium chloride (Potassium Chloride (Gwp-Pevz-Rxb 10)) pravastatin (pravastatin 80 mg Tab) Procedures [...] [facility] Normal [facility] Patient Educationon 12-23-19 Patient Education Urology [...] Follow these instructions at home: ? Take [id number]-scneafu and prescription medicines only as told by [...] provider. Document Revised: 05/26/2020 Document Reviewed: 05/26/2020 [employer] Patient Education ? 2022 [employer] Normal [facility] RAD - Ultrasound Reporton RAD - Ultrasound Report [id number] #1.00TIFF Normal [facility] Orders Onlyon 10-25-2022 Orders Only [id number] Hiram Madrid 1935 F Date Provider Department Center 10/25/2022 LESLY GASPAR [facility]. Family History Problem Relation Age of Onset Hypertension Mother Lupus Mother Coronary artery disease Mother Heart attack Mother Hypertension Father Aneurysm Father Coronary artery disease Father Hypertension Sister Lupus Sister Family Status - Relation Status Age at Mother Father Sister Normal [facility] 37on 10-14-2022 37 Increase coreg/carvedilol to 25 mg twice a day- you have 12.5 mg tabs now so take 2 twice a day until this bottle is gone- your next refill will be the higher dose of 25 mg bid. Have labs drawn Normal [facility] Office Visiton 10-14-2022 Follow-up visit [id number] Greta Madridkanika Rojas 1935 F Date Provider Department Center 10/14/2022 [facility] Family History Problem Relation Age of Onset Hypertension Mother Lupus Mother Coronary artery disease Mother Heart attack Mother Hypertension Father Aneurysm Father Coronary artery disease Father Hypertension Sister Lupus Sister Family Status - Relation Status Age at Mother Father Sister Level of Service:51185 MO OFFICE/OUTPATIENT ESTABLISHED MOD MDM 30-39 MIN Normal [facility] Alanine aminotransferase [En zymatic activity/volume] in Serum or PlasmaOrdered By: Camacho Cooper on 08-05-2022 ALT [Catalytic activity/Vol] 16 U/L 7-52 [facility] Albumin [Mass/volume] in Ser um or Plasma by Bromocresol green (BCG) dye binding methoOrdered By: Camacho Cooper on 08-05-2022 Albumin BCG dye [Mass/Vol] 4.4 g/dL 3.5-5.7 [facility] Alkaline phosphatase [Enzyma tic activity/volume] in Serum or PlasmaOrdered By: Camacho Cooper on 08-05-2022 ALP [Catalytic activity/Vol] 61 U/L 34-104 [facility] Aspartate aminotransferase [ Enzymatic activity/volume] in Serum or PlasmaOrdered By: Camacho Cooper on 08-05-2022 AST [Catalytic activity/Vol] 21 U/L 13-39 [facility] Automated erythrocytes count in urine sediment (number/area)Ordered By: Camacho Cooper on 08-05-2022 RBC Auto (Urine sed) [#/Area] 0-1 [HPF] 0-4 [facility] Automated leukocytes count i n urine sediment (number/area)Ordered By: Camacho Cooper on 08-05-2022 WBC Auto (Urine sed) [#/Area] 1-2 [HPF] 0-4 [facility] Basophils Auto (Bld) [#/Vol] Ordered By: Camacho Cooper on 08-05-2022 Basophils (Bld) [#/Vol] 0.1 10*3/uL 0.0-0.2 [facility] Basophils/100 WBC Auto (Bld) Ordered By: Camacho Cooper on 08-05-2022 Basophils/100 WBC (Bld) 0.4 % . F [facility] Bilirubin Test strip Ql (U)O rdered By: Camacho Cooper on 08-05-2022 Bilirubin Ql (U) Negative Negative [facility] Bilirubin.direct [Mass/volum e] in Serum or PlasmaOrdered By: Camacho Cooper on 08-05-2022 Bilirubin.direct [Mass/Vol] 0.10 mg/dL 0.03-0.18 [facility] Bilirubin.total [Mass/volume ] in Serum or PlasmaOrdered By: Camacho Cooper on 08-05-2022 Bilirubin [Mass/Vol] 0.7 mg/dL 0.3-1.0 [facility] Calcium [Mass/volume] in Ser um or PlasmaOrdered By: Camacho Cooper on 08-05-2022 Calcium [Mass/Vol] 9.7 mg/dL 8.6-10.3 [facility] Carbon dioxide, total [Moles /volume] in Serum or PlasmaOrdered By: Camacho Cooper on 08-05-2022 CO2 [Moles/Vol] 23.2 mmol/L 21.0-31.[address] [facility] Chloride [Moles/volume] in S willa or PlasmaOrdered By: Camacho Cooper on 08-05-2022 Chloride [Moles/Vol] 87 mmol/L 98-107 [facility] Color Auto (U)Ordered By: Ender Cooper on 08-05-2022 Color (U) Yellow Yellow [facility] Creatinine [Mass/volume] in Serum or PlasmaOrdered By: Camacho Cooper on 08-05-2022 Creatinine [Mass/Vol] 1.03 mg/dL 0.60-1.20 [facility] Eosinophils Auto (Bld) [#/Vo l]Ordered By: Camacho Cooper on 08-05-2022 Eosinophils (Bld) [#/Vol] 0.1 10*3/uL 0.0-0.45 [facility] Eosinophils/100 WBC Auto (Bl d)Ordered By: Camacho Cooper on 08-05-2022 Eosinophils/100 WBC (Bld) 0.6 % . [facility] Erythrocyte distribution wid th Auto (RBC) [Ratio]Ordered By: Camacho Cooper on 08-05-2022 Erythrocyte distribution width (RBC) [Ratio] 13.6 % 11.9-15.3 [facility] Globulin Calc (S) [Mass/Vol] Ordered By: Camacho Cooper on 08-05-2022 Globulin (S) [Mass/Vol] 2.9 g/dL F [facility] Glucose [Mass/volume] in Ser um or PlasmaOrdered By: Camacho Cooper on 08-05-2022 Glucose [Mass/Vol] 156 mg/dL 70-100 [facility] Comment on above: ADA recommended refe rence rangeRandom Glucose Reference Range is dependent on time and content of last meal. Glucose of more than 200 mg/dL in a nonstressed, ambulatory subject supports the diagnosis of Diabetes Mellitus. Hematocrit Auto (Bld) [Volum e fraction]Ordered By: Camacho Cooper on 08-05-2022 Hematocrit (Bld) [Volume fraction] 37.3 % 34.0-46.4 [facility] Hemoglobin [Mass/volume] in BloodOrdered By: Camacho Cooper on 08-05-2022 Hemoglobin (Bld) [Mass/Vol] 13.0 g/dL 11.8-15.4 [facility] Ketones Auto test strip (U) [Mass/Vol]Ordered By: Camacho Cooper on 08-05-2022 Ketones (U) [Mass/Vol] Negative Negative [facility] Laboratory - UrinalysisOrder ed By: Camacho Cooper on 08-05-2022 Hyaline casts LM Ql (Urine sed) None seen [LPF] 0-8 [facility] Leukocytes [#/volume] correc sofiya for nucleated erythrocytes in Blood by Automated counOrdered By: Camacho Cooper on 08-05-2022 WBC corrected for nucl RBC Auto (Bld) [#/Vol] 14.2 10*3/uL 3.8-11.6 [facility] Lipase [Enzymatic activity/v olume] in Serum or PlasmaOrdered By: Camacho Cooper on 08-05-2022 Lipase [Catalytic activity/Vol] 23.0 U/L 11.0-82.0 [facility] Lymphocytes Auto (Bld) [#/Vo l]Ordered By: Camacho Cooper on 08-05-2022 Lymphocytes (Bld) [#/Vol] 3.1 10*3/uL 1.00-4.8 [facility] Lymphocytes/100 WBC Auto (Bl d)Ordered By: Camacho Cooper on 08-05-2022 Lymphocytes/100 WBC (Bld) 21.9 % . [facility] MCH Auto (RBC) [Entitic mass ]Ordered By: Camacho Cooper on 08-05-2022 MCH (RBC) [Entitic mass] 31.6 pg 24.7-34.3 [facility] MCHC Auto (RBC) [Mass/Vol]Or dered By: [...] [Entitic vol] 20.58 % 0.00-20.00 [facility] Comment on above: For adults in ED, MD W > 20.0 may be associated with a higher risk of sepsis during the first 12 hrs of hospital admission Monocytes Auto (Bld) [#/Vol] Ordered By: Camacho Cooper on 08-05-2022 Monocytes (Bld) [#/Vol] 1.4 10*3/uL 0.0-0.8 [facility] Monocytes/100 WBC Auto (Bld) Ordered By: Camacho Cooper on 08-05-2022 Monocytes/100 WBC (Bld) 9.6 % . [facility] Neutrophils Auto (Bld) [#/Vo l]Ordered By: Camacho Cooper on 08-05-2022 Neutrophils (Bld) [#/Vol] 9.6 10*3/uL 1.8-7.7 [facility] Neutrophils/100 WBC Auto (Bl d)Ordered By: Camacho Cooper on 08-05-2022 Neutrophils/100 WBC (Bld) 67.5 % . [facility] Nitrite Test strip Ql (U)Ord ered By: Camacho Cooper on 08-05-2022 Nitrite Ql (U) Negative Negative [facility] No Panel InformationOrdered By: Camacho Cooper on 08-05-2022 Estimated GFR (CKD-EPI) 53.284 mL/Min [facility] Creatinine Clearance (Chem 35.13 [facility] Nucleated erythrocytes [Pres ence] in Blood by Automated countOrdered By: Camacho Cooper on 08-05-2022 Nucleated RBC Auto Ql (Bld) 0.1 /100{WBC} 0-0.5 [facility] Platelet mean volume Auto (B ld) [Entitic vol]Ordered By: Camacho Cooper on 08-05-2022 Platelet mean volume (Bld) [Entitic vol] 7.2 fL 6.3-10.7 [facility] Platelets Auto (Bld) [#/Vol] Ordered By: Camacho Cooper on 08-05-2022 Platelets (Bld) [#/Vol] 500 10*3/uL 150-450 [facility] Potassium [Moles/volume] in Serum or PlasmaOrdered By: Camacho Cooper on 08-05-2022 Potassium [Moles/Vol] 3.0 mmol/L 3.5-5.1 [facility] Protein Auto test strip (U) [Mass/Vol]Ordered By: Camacho Cooper on 08-05-2022 Protein (U) [Mass/Vol] Negative Negative [facility] Protein [Mass/volume] in Ser um or PlasmaOrdered By: Camacho Cooper on 08-05-2022 Protein [Mass/Vol] 7.3 g/dL 6.4-8.9 [facility] RBC Auto (Bld) [#/Vol]Ordere d By: Camacho Cooper on 08-05-2022 RBC (Bld) [#/Vol] 4.13 10*6/uL 3.60-5.00 [facility] Serum or plasma albumin/glob ulin mass ratioOrdered By: Camacho Cooper on 08-05-2022 Albumin/Globulin [Mass ratio] 1.5 {ratio} [facility] Serum or plasma anion gap de terminationOrdered By: Camacho Cooper on 08-05-2022 Anion gap [Moles/Vol] 17.8 mmol/L 6.0-15.0 [facility] Serum or plasma non-glucuron idated bilirubin measurement (mass/volume)Ordered By: Camacho Cooper on 08-05-2022 Bilirubin.indirect [Mass/Vol] 0.6 mg/dL [facility] Sodium [Moles/volume] in Ser um or PlasmaOrdered By: Camacho Cooper on 08-05-2022 Sodium [Moles/Vol] 125 mmol/L 136-145 [facility] Specific gravity Auto test s trip (U) [Rel density]Ordered By: Camacho Cooper on 08-05-2022 Specific gravity (U) [Rel density] 1.009 1.001-1.030 [facility] Squamous epithelial cells de tection in urine sediment by light microscopyOrdered By: Camacho Cooper on 08-05-2022 Epithelial cells.squamous LM Ql (Urine sed) 0-1 [HPF] 0-2 [facility] Troponin I.cardiac [Mass/vol ume] in Serum or Plasma by Detection limit <= 0.01 ng/Ordered By: Camacho Cooper on 08-05-2022 Troponin I.cardiac DL <= 0.01 ng/mL [Mass/Vol] 7.7 pg/mL 0.0-15.0 [facility] Urea nitrogen [Mass/volume] in Serum or PlasmaOrdered By: Camacho Cooper on 08-05-2022 Urea nitrogen [Mass/Vol] 12 mg/dL 7-25 [facility] Urine bacteria detection by automated methodOrdered By: Camacho Cooper on 08-05-2022 Bacteria Auto Ql (U) None seen None Seen [facility] Urine clarity by refractomet ry automatedOrdered By: Camacho Cooper on 08-05-2022 Clarity Refractometry automated (U) Cloudy Clear [facility] Urine glucose measurement by automated test strip (mass/volume)Ordered By: Camacho Cooper on 08-05-2022 Glucose Auto test strip (U) [Mass/Vol] Normal mg/dL Normal [facility] Urine hemoglobin detection b y automated test stripOrdered By: Camacho Cooper on 08-05-2022 Hemoglobin Auto test strip Ql (U) Negative Negative [facility] Urine leukocyte esterase det ection by automated test stripOrdered By: Camacho Cooper on 08-05-2022 Leukocyte esterase Auto test strip Ql (U) 1+ Negative [facility] Urobilinogen Auto test strip (U) [Mass/Vol]Ordered By: Camacho Cooper on 08-05-2022 Urobilinogen (U) [Mass/Vol] Normal mg/dL Normal [facility] WBC Auto (Bld) [#/Vol]Ordere d By: Camacho Cooper on 08-05-2022 WBC (Bld) [#/Vol] 14.2 10*3/uL 3.8-11.6 [facility] pH Auto test strip (U)Ordere d By: Camacho Cooper on 08-05-2022 pH (U) 7.0 [pH] 5.0-9.0 [facility] BNPon 06-13-2022 Natriuretic peptide B (Bld) [Mass/Vol] 142.0 pg/mL Normal <=1,800.0 [facility] Comment on above: Performed By: #### T PAWAN DENNISON #### [facility] [address] [place] [id number] [address] Tasha Dodson CBC AUTO DIFFon 06-13-2022 BASO # 0.1 103/ul Normal 0.0-0.1 [facility] Comment on above: Performed By: #### T PAWAN DENNISON #### [facility] [address] [place] [address] Dr. Tasha Dodson Basophils/100 WBC (Bld) 1.0 % Normal 0.2-2.0 [facility] Comment on above: Performed By: #### T SH, BMP #### [facility] [address] [place] [address] Dr. Tasha Dodson EO # 0.3 103/ul Normal 0.0-0.7 [facility] Comment on above: Performed By: #### T SH, BMP #### [facility] [address] [place] [address] Dr. Tasha Dodson Eosinophils/100 WBC (Bld) 2.6 % Normal 0.9-7.0 [facility] Comment on above: Performed By: #### T SH, BMP #### [facility] [address] [place] [address] Dr. Tasha Dodson Erythrocyte distribution width (RBC) [Ratio] 13.4 % Normal 11.0-15.0 [facility] Comment on above: Performed By: #### T SH, BMP #### [facility] [address] [place] [address] Dr. Tasha Dodson Hematocrit (Bld) [Volume fraction] 39.5 % Normal 36.0-48.0 [facility] Comment on above: Performed By: #### T SH, BMP #### [facility] [address] [place] [address] Dr. Tasha Dodson Hemoglobin (Bld) [Mass/Vol] 13.1 g/dL Normal 12.0-16.0 [facility] Comment on above: Performed By: #### T SH, BMP #### [facility] [address] [place] [address] Dr. Tasha Dodson IG # 0.07 10e3/ul Critically high 0.00-0.03 [facility] Comment on above: Performed By: #### T SH, BMP #### [facility] [address] [place] [address] Dr. Tasha Dodson IG % 0.6 % Critically high 0.0-0.5 [facility] Comment on above: Performed By: #### T SH, BMP #### [facility] [address] [place] [address] Dr. Tasha Dodson LYMPH # 2.5 103/ul Normal 1.2-3.8 [facility] Comment on above: Performed By: #### T SH, BMP #### [facility] [address] [place] [address] Dr. Tasha Dodson Lymphocytes/100 WBC (Bld) 22.9 % Normal 20.5-60.0 [facility] Comment on above: Performed By: #### T SH, BMP #### [facility] [address] [place] [address] Dr. Tasha Dodson MANUAL DIFF REQ NO Normal [facility] Comment on above: Performed By: #### T SH, BMP #### [facility] [address] [place] [address] Dr. Tasha Dodson MCH (RBC) [Entitic mass] 30.7 pg Normal 26.7-34.0 [facility] Comment on above: Performed By: #### T SH, BMP #### [facility] [address] [place] [address] Dr. Tasha Dodson MCHC (RBC) [Mass/Vol] 33.2 g/dL Normal 29.9-35.2 [facility] Comment on above: Performed By: #### T SH, BMP #### [facility] [address] [place] [address] Dr. Tasha Dodson MCV (RBC) [Entitic vol] 92.5 fL Normal 81.0-99.0 [facility] Comment on above: Performed By: #### T SH, BMP #### [facility] [address] [place] [address] Dr. Tasha Dodson MONO # 0.8 103/ul Normal 0.3-0.8 [facility] Comment on above: Performed By: #### T SH, BMP #### [facility] [address] [place] [address] Dr. Tasha Dodson Monocytes/100 WBC (Bld) 7.0 % Normal 1.7-12.0 [facility] Comment on above: Performed By: #### T SH, BMP #### [facility] [address] [address] [address] Tasha Dodson NEUT # 7.2 103/ul Critically high 1.4-6.5 [facility] Comment on above: Performed By: #### T SH, BMP #### [facility] [address] [address] [address] Tasha Dodson Neutrophils/100 WBC (Bld) 65.9 % Normal 43.0-75.0 [facility] Comment on above: Performed By: #### T SH, BMP #### [facility] [address] [address] [address] Tasha Dodson Platelet mean volume (Bld) [Entitic vol] 8.0 fL Critically low 9.5-13.5 [facility] Comment on above: Performed By: #### T SH, BMP #### [facility] [address] [place] [address] Dr. Tasha Dodson PLT 449 103/ul Normal 150-450 [facility] Comment on above: Performed By: #### T SH, BMP #### [facility] [address] [place] [address] Dr. Tasha Dodson RBC 4.27 106/ul Normal 4.20-5.40 [facility] Comment on above: Performed By: #### T SH, BMP #### [facility] [address] [place] [address] Dr. Tasha Dodson WBC 10.9 103/ul Normal 4.0-11.0 [facility] Comment on above: Performed By: #### T SH, BMP #### [facility] [address] [place] [address] Dr. Tasha Dodson FREE THYROXINE INDEX T7on FTI 3.67 Normal 1.30-4.50 [facility] Comment on above: Performed By: #### T SH, BMP #### [facility] [address] [place] [address] Dr. Tasha Dodson T3U 36.0 % Normal 30.0-39.0 [facility] Comment on above: Performed By: #### T SH, BMP #### [facility] [address] [place] [address] Dr. Tasha Dodson T4 [Mass/Vol] 10.20 ug/dL Normal 4.80-13.90 [facility] Comment on above: Performed By: #### T SH, BMP #### [facility] [address] [place] [address] Dr. Tasha Dodson PROF CHEM 8 (BAS METB)on Anion gap [Moles/Vol] 13.8 mmol/L Normal [facility] Comment on above: Performed By: #### T SH, BMP #### [facility] [address] [place] [address] Dr. Tasha Dodson Calcium [Mass/Vol] 9.8 mg/dL Normal 8.5-10.1 [facility] Comment on above: Performed By: #### T SH, BMP #### [facility] [address] [place] [address] Dr. Tasha Dodson Chloride [Moles/Vol] 95 mmol/L Critically low 98-107 [facility] Comment on above: Performed By: #### T SH, BMP #### [facility] [address] [place] [address] Dr. Tasha Dodson CO2 [Moles/Vol] 30.5 mmol/L Normal 21.0-32.[address] [facility] Comment on above: Performed By: #### T SH, BMP #### [facility] [address] [place] [address] Dr. Tasha Dodson Creatinine [Mass/Vol] 0.78 mg/dL Normal 0.55-1.02 [facility] Comment on above: Performed By: #### T SH, BMP #### [facility] [address] [place] [address] Dr. Tasha Dodson EGFR-AF PORTUGUESE >60 Normal >=[address] [facility] Comment on above: Performed By: #### T SH, BMP #### [facility] [address] [place] [address] Dr. Tasha Dodson EGFR-NON AF [place]UGUESE >60 Normal >=60 [facility] Comment on above: Performed By: #### T SH, BMP #### [facility] [address] [place] [address] Dr. Tasha Dodson Glucose [Mass/Vol] 108 mg/dL Critically high 74-106 [facility] Comment on above: Performed By: #### T SH, BMP #### [facility] [address] [place] [address] Dr. Tasha Dodson Potassium [Moles/Vol] 3.3 mmol/L Critically low 3.5-5.1 [facility] Comment on above: Performed By: #### T SH, BMP #### [facility] [address] [place] [address] Dr. Tasha Dodson Sodium [Moles/Vol] 136 mmol/L Normal 136-145 [facility] Comment on above: Performed By: #### T JESI, BMP #### [facility] [address] [place] [address] Dr. Tasha Dodson Urea nitrogen [Mass/Vol] 11.0 mg/dL Normal 7.0-18.0 [facility] Comment on above: Performed By: #### T JESI, BMP #### [facility] [address] [place] [address] Dr. Tasha Dodson Urea nitrogen/Creatinine [Mass ratio] 14.1 mg/mg Normal [facility] Comment on above: Performed By: #### T JESI, BMP #### [facility] [address] [place] [address] Dr. Tasha Dodson TSHon 06-13-2022 TSH 2.583 uIU/mL Normal 0.358-3.740 [facility] Comment on above: Performed By: #### T JESI, BMP #### [facility] [address] [place] [address] Dr. 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 Comment on above: Performed By: #### T JESI, BMP #### [facility] [address] [place] [address] Dr. Tasha Dodson Clarity (U) CLEAR Normal CLEAR [facility] Comment on above: Performed By: #### T SH, BMP #### [facility] [address] [place] [address] Dr. Tasha Dodson Color (U) LT. YELLOW Normal YELLOW [facility] Comment on above: Performed By: #### T SH, BMP #### [facility] [address] [place] [address] Dr. Tasha Dodson Glucose Ql (U) Negative Normal NEGATIVE [facility] Comment on above: Performed By: #### T SH, BMP #### [facility] [address] [place] [address] Dr. Tasha Dodson Hemoglobin Ql (U) Negative Normal NEGATIVE [facility] Comment on above: Performed By: #### T SH, BMP #### [facility] [address] [place] [address] Dr. Tasha Dodson Ketones Ql (U) Negative Normal NEGATIVE [facility] Comment on above: Performed By: #### T SH, BMP #### [facility] [address] [place] [address] Dr. Tasha Dodson LEUKOCYTES Negative Normal NEGATIVE [facility] Comment on above: Performed By: #### T SH, BMP #### [facility] [address] [place] [address] Dr. Tasha Dodson Nitrite Ql (U) Negative Normal NEGATIVE [facility] Comment on above: Performed By: #### T SH, BMP #### [facility] [address] [place] [address] Dr. Tasha Dodson pH (U) 7.0 [pH] Normal 5-9 [facility] Comment on above: Performed By: #### T SH, BMP #### [facility] [address] [place] [address] Dr. Tasha Dodson SPEC GRAVITY 1.010 Normal 1.005-<=1.02 5 [facility] Comment on above: Performed By: #### T SH, BMP #### [facility] [address] [place] [address] Dr. Tasha Dodsno UA PROTEIN Negative Normal NEGATIVE/ TRACE [facility] Comment on above: Performed By: #### T SH, BMP #### [facility] [address] [address] [address] Tasha Dodson UR MICRO IND NOT INDICATED Normal [facility] Comment on above: Performed By: #### T SH, BMP #### [facility] [address] [place], [place] [address] Dr. Tasha Dodson Urobilinogen Qn (U) 0.2 {Juan'U}/dL Normal 0.2 - 1. 0 [facility] Comment on above: Performed By: #### T JESI, BMP #### [facility] [address] [address] [address] Tasha Dodson ECHOCARDIO M/2D COMPLETEon 0 04-18-2022 ECHOCARDIO M/2D COMPLETE Patient: HIRAM MADRID Exam Date: 04/18/2022 : 1935 Gender:F Ordering : DR VALERIE DARDEN M.D. Admission #: [id number] Family : DR ADDY DANIELS . Order #: [id number] CLICK HERE TO VIEW EXAM ECHOCARDIOGRAM REPORT [...] Barragan M.D. on 04/19/2022 at 18:55 Normal [facility] Office Visiton 04-04-2022 Follow-up visit [id number] Hiram Madrid 1935 F Date Provider Department Center 04/04/2022 Yazmin-VALERIE DARDEN [facility] Family History Problem Relation Age of Onset Hypertension Mother Lupus Mother Coronary artery disease Mother Heart attack Mother Hypertension Father Aneurysm Father Coronary artery disease Father Hypertension Sister Lupus Sister Family Status - Relation Status Age at Mother Father Sister Level of Service:91628 MO OFFICE/OUTPATIENT ESTABLISHED MOD MDM 30-39 MIN Reason for Visit and Comments: Hyperlipidemia [182] Hypertension [766733] carotid artery stenosis [Other] 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 Tasha Dodson Basophils/100 WBC (Bld) 0.6 % Normal 0.2-2.0 [facility] Comment on above: Performed By: #### C BC #### [facility] [address] [address] [address] Tasha Dodson EO # 0.1 103/ul Normal 0.0-0.7 [facility] Comment on above: Performed By: #### C BC #### [facility] [address] [place] [address] Dr. Tasha Dodson Eosinophils/100 WBC (Bld) 0.9 % Normal 0.9-7.0 [facility] Comment on above: Performed By: #### C BC #### [facility] [address] [place] [address] Dr. Tasha Dodson Erythrocyte distribution width (RBC) [Ratio] 13.0 % Normal 11.0-15.0 [facility] Comment on above: Performed By: #### C BC #### [facility] [address] [place] [address] Dr. Tasha Dodson Hematocrit (Bld) [Volume fraction] 38.5 % Normal 36.0-48.0 [facility] Comment on above: Performed By: #### C BC #### [facility] [address] [place] [address] Dr. Tasha Dodson Hemoglobin (Bld) [Mass/Vol] 13.4 g/dL Normal 12.0-16.0 [facility] Comment on above: Performed By: #### C BC #### [facility] [address] [place] [address] Dr. Tasha Dodson IG # 0.07 10e3/ul Critically high 0.00-0.03 [facility] Comment on above: Performed By: #### C BC #### [facility] [address] [place] [address] Dr. Tasha Dodson IG % 0.5 % Normal 0.0-0.5 [facility] Comment on above: Performed By: #### C BC #### [facility] [address] [place] [address] Dr. Tasha Dodson LYMPH # 2.8 103/ul Normal 1.2-3.8 [facility] Comment on above: Performed By: #### C BC #### [facility] [address] [place] [address] Dr. Tasha Dodson Lymphocytes/100 WBC (Bld) 20.5 % Normal 20.5-60.0 [facility] Comment on above: Performed By: #### C BC #### [facility] [address] [place] [address] Dr. Tasha Dodson MANUAL DIFF REQ NO Normal [facility] Comment on above: Performed By: #### C BC #### [facility] [address] [address] [address] Tasha Dodson MCH (RBC) [Entitic mass] 30.7 pg Normal 26.7-34.0 [facility] Comment on above: Performed By: #### C BC #### [facility] [address] [place] [address] Dr. Tasha Dodson MCHC (RBC) [Mass/Vol] 34.8 g/dL Normal 29.9-35.2 [facility] Comment on above: Performed By: #### C BC #### [facility] [address] [place] [address] Dr. Tasha Dodson MCV (RBC) [Entitic vol] 88.3 fL Normal 81.0-99.0 [facility] Comment on above: Performed By: #### C BC #### [facility] [address] [place] [address] Dr. Tasha Dodson MONO # 1.0 103/ul Critically high 0.3-0.8 [facility] Comment on above: Performed By: #### C BC #### [facility] [address] [place] [address] Dr. Tasha Dodson Monocytes/100 WBC (Bld) 7.4 % Normal 1.7-12.0 [facility] Comment on above: Performed By: #### C BC #### [facility] [address] [place] [address] Dr. Tasha Dodson NEUT # 9.5 103/ul Critically high 1.4-6.5 [facility] Comment on above: Performed By: #### C BC #### [facility] [address] [place] [address] Dr. Tasha Dodson Neutrophils/100 WBC (Bld) 70.1 % Normal 43.0-75.0 [facility] Comment on above: Performed By: #### C BC #### [facility] [address] [place] [address] Dr. Tasha Dodson Platelet mean volume (Bld) [Entitic vol] 8.0 fL Critically low 9.5-13.5 [facility] Comment on above: Performed By: #### C BC #### [facility] [address] [address] [address] Tasha Dodson PLT 492 103/ul Critically high 150-450 [facility] Comment on above: Performed By: #### C BC #### [facility] [address] [address] [address] Tasha Dodson RBC 4.36 106/ul Normal 4.20-5.40 [facility] Comment on above: Performed By: #### C BC #### [facility] [address] [address] [address] Tasha Dodson WBC 13.5 103/ul Critically high 4.0-11.[address] [facility] Comment on above: Performed By: #### C BC #### [facility] [address] [place] [address] Dr. Tasha Dodson PROF 14(COMP METB)on 01-04- 022 Albumin [Mass/Vol] 3.8 g/dL Normal 3.4-5.0 [facility] Comment on above: Performed By: #### T SH, BMP #### [facility] [address] [place] [address] Dr. Tasha Dodson Albumin/Globulin [Mass ratio] 0.9 {ratio} Normal [facility] Comment on above: Performed By: #### T SH, BMP #### [facility] [address] [place] [address] Dr. Tasha Dodson ALP [Catalytic activity/Vol] 60 U/L Normal 46-116 [facility] Comment on above: Performed By: #### T SH, BMP #### [facility] [address] [place] [address] Dr. Tasha Dodson ALT [Catalytic activity/Vol] 26 U/L Normal 14-59 [facility] Comment on above: Performed By: #### T SH, BMP #### [facility] [address] [place] [address] Dr. Tasha Dodson Anion gap [Moles/Vol] 8.4 mmol/L Normal [facility] Comment on above: Performed By: #### T SH, BMP #### [facility] [address] [place] [address] Dr. Tasha Dodson AST [Catalytic activity/Vol] 19 U/L Normal 15-37 [facility] Comment on above: Performed By: #### T SH, BMP #### [facility] [address] [place] [address] Dr. Tasha Dodson Bilirubin [Mass/Vol] 0.4 mg/dL Normal 0.2-1.0 [facility] Comment on above: Performed By: #### T SH, BMP #### [facility] [address] [place] [address] Dr. Tasha Dodson Calcium [Mass/Vol] 10.1 mg/dL Normal 8.5-10.1 [facility] Comment on above: Performed By: #### T SH, BMP #### [facility] [address] [place] [address] Dr. Tasha Dodson Chloride [Moles/Vol] 92 mmol/L Critically low 98-107 [facility] Comment on above: Performed By: #### T SH, BMP #### [facility] [address] [place] [address] Dr. Tasha Dodson CO2 [Moles/Vol] 33.8 mmol/L Critically high 21.0-32.0 [facility] Comment on above: Performed By: #### T SH, BMP #### [facility] [address] [place] [address] Dr. Tasha Dodson Creatinine [Mass/Vol] 0.67 mg/dL Normal 0.55-1.02 [facility] Comment on above: Performed By: #### T SH, BMP #### [facility] [address] [place] [address] Dr. Tasha Dodson EGFR-AF PORTUGUESE >60 Normal >=60 [facility] Comment on above: Performed By: #### T SH, BMP #### [facility] [address] [place] [address] Dr. Tasha Dodson EGFR-NON AF [place]E >60 Normal >=60 [facility] Comment on above: Performed By: #### T SH, BMP #### [facility] [address] [place], [place] [id number] Dr. Tasha Dodson Globulin (S) [Mass/Vol] 4.1 g/dL Normal [facility] Comment on above: Performed By: #### T SH, BMP #### [facility] [address] [place] [address] Dr. Tasha Dodson Glucose [Mass/Vol] 106 mg/dL Normal 74-106 [facility] Comment on above: Performed By: #### T SH, BMP #### [facility] [address] [place] [address] Dr. Tasha Dodson Potassium [Moles/Vol] 3.2 mmol/L Critically low 3.5-5.1 [facility] Comment on above: Performed By: #### T SH, BMP #### [facility] [address] [place] [address] Dr. Tasha Dodson Protein [Mass/Vol] 7.9 g/dL Normal 6.4-8.2 [facility] Comment on above: Performed By: #### T SH, BMP #### [facility] [address] [place] [address] Dr. Tasha Dodson Sodium [Moles/Vol] 131 mmol/L Critically low 136-145 [facility] Comment on above: Performed By: #### T SH, BMP #### [facility] [address] [place] [address] Dr. Tasha Dodson Urea nitrogen [Mass/Vol] 10.0 mg/dL Normal 7.0-18.0 [facility] Comment on above: Performed By: #### T SH, BMP #### [facility] [address] [place] [address] Dr. Tasha Dodson Urea nitrogen/Creatinine [Mass ratio] 14.9 mg/mg Normal [facility] Comment on above: Performed By: #### T SH, BMP #### [facility] [address] [place] [address] Dr. Tasha Dodson CBC AUTO DIFFon 12-29-2021 BASO # 0.1 103/ul Normal 0.0-0.1 [facility] Comment on above: Performed By: #### C BC #### [facility] [address] [place] [address] Dr. Tasha Dodson Basophils/100 WBC (Bld) 0.5 % Normal 0.2-2.0 [facility] Comment on above: Performed By: #### C BC #### [facility] [address] [place] [address] Dr. Tasha Dodson EO # 0.1 103/ul Normal 0.0-0.7 [facility] Comment on above: Performed By: #### C BC #### [facility] [address] [place] [address] Dr. Tasha Dodson Eosinophils/100 WBC (Bld) 0.4 % Critically low 0.9-7.0 [facility] Comment on above: Performed By: #### C BC #### [facility] [address] [place] [address] Dr. Tasha Dodson Erythrocyte distribution width (RBC) [Ratio] 13.0 % Normal 11.0-15.0 [facility] Comment on above: Performed By: #### C BC #### [facility] [address] [place] [address] Dr. Tasha Dodson Hematocrit (Bld) [Volume fraction] 34.0 % Critically low 36.0-48.0 [facility] Comment on above: Performed By: #### C BC #### [facility] [address] [place] [address] Dr. Tasha Dodson Hemoglobin (Bld) [Mass/Vol] 12.0 g/dL Normal 12.0-16.0 [facility] Comment on above: Performed By: #### C BC #### [facility] [address] [place] [address] Dr. Tasha Dodson IG # 0.06 10e3/ul Critically high 0.00-0.03 [facility] Comment on above: Performed By: #### C BC #### [facility] [address] [place] [address] Dr. Tasha Dodson IG % 0.4 % Normal 0.0-0.5 [facility] Comment on above: Performed By: #### C BC #### [facility] [address] [address] [address] Tasha Dodson LYMPH # 2.5 103/ul Normal 1.2-3.8 [facility] Comment on above: Performed By: #### C BC #### [facility] [address] [address] [address] Tasha Dodson Lymphocytes/100 WBC (Bld) 17.4 % Critically low 20.5-60.0 [facility] Comment on above: Performed By: #### C BC #### [facility] [address] [address] [address] Tasha Dodson MANUAL DIFF REQ NO Normal [facility] Comment on above: Performed By: #### C BC #### [facility] [address] [place] [address] Dr. Tasha Dodson MCH (RBC) [Entitic mass] 31.0 pg Normal 26.7-34.0 [facility] Comment on above: Performed By: #### C BC #### [facility] [address] [place] [address] Dr. Tasha Dodson MCHC (RBC) [Mass/Vol] 35.3 g/dL Critically high 29.9-35.2 [facility] Comment on above: Performed By: #### C BC #### [facility] [address] [place] [address] Dr. Tasha Dodson MCV (RBC) [Entitic vol] 87.9 fL Normal 81.0-99.0 [facility] Comment on above: Performed By: #### C BC #### [facility] [address] [place] [address] Dr. Tasha Dodson MONO # 1.0 103/ul Critically high 0.3-0.8 [facility] Comment on above: Performed By: #### C BC #### [facility] [address] [place] [address] Dr. Tasha Dodson Monocytes/100 WBC (Bld) 6.9 % Normal 1.7-12.0 [facility] Comment on above: Performed By: #### C BC #### [facility] [address] [address] [address] Tasha Dodson NEUT # 10.8 103/ul Critically high 1.4-6.[address] [facility] Comment on above: Performed By: #### C BC #### [facility] [address] [id number] [address] Tasha Dodson Neutrophils/100 WBC (Bld) 74.4 % Normal 43.0-75.0 [facility] Comment on above: Performed By: #### C BC #### [facility] [address] [address] [address] Tasha Dodson Platelet mean volume (Bld) [Entitic vol] 8.4 fL Critically low 9.5-13.5 [facility] Comment on above: Performed By: #### C BC #### [facility] [address] [place] [address] Dr. Tasha Dodson PLT 370 103/ul Normal 150-450 [facility] Comment on above: Performed By: #### C BC #### [facility] [address] [place] [address] Dr. Tasha Dodson RBC 3.87 106/ul Critically low 4.20-5.40 [facility] Comment on above: Performed By: #### C BC #### [facility] [address] [place] [address] Dr. Tasha Dodson WBC 14.5 103/ul Critically high 4.0-11.[address] [facility] Comment on above: Performed By: #### C BC #### [facility] [address] [place] [address] Dr. Tasha Dodson PROF 14(COMP METB)on 022 Albumin [Mass/Vol] 2.8 g/dL Critically low 3.4-5.0 [facility] Comment on above: Performed By: #### T JESI, BMP #### [facility] [address] [place] [address] Dr. Tasha Dodson Albumin/Globulin [Mass ratio] 0.9 {ratio} Normal [facility] Comment on above: Performed By: #### T JESI, BMP #### [facility] [address] [address] [address] Tasha Dodson ALP [Catalytic activity/Vol] 51 U/L Normal 46-116 [facility] Comment on above: Performed By: #### T SH, BMP #### [facility] [address] [address] [address] Tasha Dodson ALT [Catalytic activity/Vol] 15 U/L Normal 14-59 [facility] Comment on above: Performed By: #### T SH, BMP #### [facility] [address] [address] [address] Tasha Dodson Anion gap [Moles/Vol] 9.7 mmol/L Normal [facility] Comment on above: Performed By: #### T SH, BMP #### [facility] [address] [address] [address] Tasha Dodson AST [Catalytic activity/Vol] 15 U/L Normal 15-37 [facility] Comment on above: Performed By: #### T JESI, BMP #### [facility] [address] [address] [address] Tasha Dodson Bilirubin [Mass/Vol] 0.4 mg/dL Normal 0.2-1.0 [facility] Comment on above: Performed By: #### T JESI, BMP #### [facility] [address] [address] [address] Tasha Dodson Calcium [Mass/Vol] 8.6 mg/dL Normal 8.5-10.1 [facility] Comment on above: Performed By: #### T SH, BMP #### [facility] [address] [address] [address] Tasha Dodson Chloride [Moles/Vol] 97 mmol/L Critically low 98-107 [facility] Comment on above: Performed By: #### T SH, BMP #### [facility] [address] [address] [address] Tasha Dodson CO2 [Moles/Vol] 25.8 mmol/L Normal 21.0-32.0 [facility] Comment on above: Performed By: #### T SH, BMP #### [facility] [address] [address] [address] Tasha Dodson Creatinine [Mass/Vol] 0.52 mg/dL Critically low 0.55-1.02 [facility] Comment on above: Performed By: #### T SH, BMP #### [facility] [address] [address] [address] Tasha Dodson EGFR-AF [place]E >60 Normal >=[address] [facility] Comment on above: Performed By: #### T SH, BMP #### [facility] [address] [place] [address] Dr. Tasha Dodson EGFR-NON AF [place] >60 Normal >=60 [facility] Comment on above: Performed By: #### T SH, BMP #### [facility] [address] [place] [address] Dr. Tasha Dodson Globulin (S) [Mass/Vol] 3.2 g/dL Normal [facility] Comment on above: Performed By: #### T SH, BMP #### [facility] [address] [place] [address] Dr. Tasha Dodson Glucose [Mass/Vol] 117 mg/dL Critically high 74-106 [facility] Comment on above: Performed By: #### T SH, BMP #### [facility] [address] [place] [address] Dr. Tasha Dodson Potassium [Moles/Vol] 3.5 mmol/L Normal 3.5-5.1 [facility] Comment on above: Performed By: #### T SH, BMP #### [facility] [address] [place] [address] Dr. Tasha Dodson Protein [Mass/Vol] 6.0 g/dL Critically low 6.4-8.2 [facility] Comment on above: Performed By: #### T SH, BMP #### [facility] [address] [place] [address] Dr. Tasha Dodson Sodium [Moles/Vol] 129 mmol/L Critically low 136-145 [facility] Comment on above: Performed By: #### T SH, BMP #### [facility] [address] [place] [address] Dr. Tasha Dodson Urea nitrogen [Mass/Vol] 4.0 mg/dL Critically low 7.0-18. 0 [facility] Comment on above: Performed By: #### T SH, BMP #### [facility] [address] [place] [address] Dr. Tasha Dodson Urea nitrogen/Creatinine [Mass ratio] 7.7 mg/mg Normal [facility] Comment on above: Performed By: #### T SH, BMP #### [facility] [address] [place] [address] Dr. Tasha Dodson CBC AUTO DIFFon 12-28-2021 BASO # 0.1 103/ul Normal 0.0-0.1 [facility] Comment on above: Performed By: #### C BC #### [facility] [address] [place] [address] Dr. Tasha Dodson Basophils/100 WBC (Bld) 0.4 % Normal 0.2-2.0 [facility] Comment on above: Performed By: #### C BC #### [facility] [address] [place] [address] Dr. Tasha Dodson EO # 0.1 103/ul Normal 0.0-0.7 [facility] Comment on above: Performed By: #### C BC #### [facility] [address] [place] [address] Dr. Tasha Dodson Eosinophils/100 WBC (Bld) 0.4 % Critically low 0.9-7.0 [facility] Comment on above: Performed By: #### C BC #### [facility] [address] [place] [address] Dr. Tasha Dodson Erythrocyte distribution width (RBC) [Ratio] 12.9 % Normal 11.0-15.0 [facility] Comment on above: Performed By: #### C BC #### [facility] [address] [place] [address] Dr. Tasha Dodson Hematocrit (Bld) [Volume fraction] 34.2 % Critically low 36.0-48.0 [facility] Comment on above: Performed By: #### C BC #### [facility] [address] [address] [address] Tasha Dodson Hemoglobin (Bld) [Mass/Vol] 12.4 g/dL Normal 12.0-16.0 [facility] Comment on above: Performed By: #### C BC #### [facility] [address] [address] [address] Tasha Dodson IG # 0.09 10e3/ul Critically high 0.00-0.03 [facility] Comment on above: Performed By: #### C BC #### [facility] [address] [address] [address] Tasha Dodson IG % 0.6 % Critically high 0.0-0.5 [facility] Comment on above: Performed By: #### C BC #### [facility] [address] [place] [address] Dr. Tasha Dodson LYMPH # 2.2 103/ul Normal 1.2-3.8 [facility] Comment on above: Performed By: #### C BC #### [facility] [address] [place] [address] Dr. Tasha Dodson Lymphocytes/100 WBC (Bld) 13.6 % Critically low 20.5-60.0 [facility] Comment on above: Performed By: #### C BC #### [facility] [address] [place] [address] Dr. Tasha Dodson MANUAL DIFF REQ NO Normal [facility] Comment on above: Performed By: #### C BC #### [facility] [address] [address] [address] Tasha Dodson MCH (RBC) [Entitic mass] 31.2 pg Normal 26.7-34.0 [facility] Comment on above: Performed By: #### C BC #### [facility] [address] [place] [address] Dr. Tasha Dodson MCHC (RBC) [Mass/Vol] 36.3 g/dL Critically high 29.9-35.2 [facility] Comment on above: Performed By: #### C BC #### [facility] [address] [address] [address] Tasha Dodson MCV (RBC) [Entitic vol] 85.9 fL Normal 81.0-99.0 [facility] Comment on above: Performed By: #### C BC #### [facility] [address] [address] [address] Tasha Dodson MONO # 1.3 103/ul Critically high 0.3-0.8 [facility] Comment on above: Performed By: #### C BC #### [facility] [address] [place] [address] Dr. Tasha Dodson Monocytes/100 WBC (Bld) 7.8 % Normal 1.7-12.0 [facility] Comment on above: Performed By: #### C BC #### [facility] [address] [place] [address] Dr. Tasha Dodson NEUT # 12.4 103/ul Critically high 1.4-6.[address] [facility] Comment on above: Performed By: #### C BC #### [facility] [address] [place] [address] Dr. Tasha Dodson Neutrophils/100 WBC (Bld) 77.2 % Critically high 43.0-75.0 [facility] Comment on above: Performed By: #### C BC #### [facility] [address] [place] [address] Dr. Tasha Dodson Platelet mean volume (Bld) [Entitic vol] 8.6 fL Critically low 9.5-13.5 [facility] Comment on above: Performed By: #### C BC #### [facility] [address] [place] [address] Dr. Tasha Dodson PLT 385 103/ul Normal 150-450 [facility] Comment on above: Performed By: #### C BC #### [facility] [address] [place] [address] Dr. Tasha Dodson RBC 3.98 106/ul Critically low 4.20-5.40 [facility] Comment on above: Performed By: #### C BC #### [facility] [address] [place] [address] Dr. Tasha Dodson WBC 16.1 103/ul Critically high 4.0-11.[address] [facility] Comment on above: Performed By: #### C BC #### [facility] [address] [place] [address] Dr. Tasha Dodson PROF 14(COMP METB)on 022 Albumin [Mass/Vol] 3.2 g/dL Critically low 3.4-5.0 [facility] Comment on above: Performed By: #### T SH, BMP #### [facility] [address] [place] [address] Dr. Tasha Dodson Albumin/Globulin [Mass ratio] 1.0 {ratio} Normal [facility] Comment on above: Performed By: #### T SH, BMP #### [facility] [address] [place] [address] Dr. Tasha Dodson ALP [Catalytic activity/Vol] 51 U/L Normal 46-116 [facility] Comment on above: Performed By: #### T SH, BMP #### [facility] [address] [place] [address] Dr. Tasha Dodson ALT [Catalytic activity/Vol] 17 U/L Normal 14-59 [facility] Comment on above: Performed By: #### T SH, BMP #### [facility] [address] [place] [address] Dr. Tasha Dodson Anion gap [Moles/Vol] 10.5 mmol/L Normal [facility] Comment on above: Performed By: #### T SH, BMP #### [facility] [address] [place] [address] Dr. Tasha Dodson AST [Catalytic activity/Vol] 18 U/L Normal 15-37 [facility] Comment on above: Performed By: #### T SH, BMP #### [facility] [address] [place] [address] Dr. Tasha Dodson Bilirubin [Mass/Vol] 0.4 mg/dL Normal 0.2-1.0 [facility] Comment on above: Performed By: #### T SH, BMP #### [facility] [address] [place] [address] Dr. Tasha Dodson Calcium [Mass/Vol] 8.3 mg/dL Critically low 8.5-10.1 [facility] Comment on above: Performed By: #### T SH, BMP #### [facility] [address] [place] [address] Dr. Tasha Dodson Chloride [Moles/Vol] 96 mmol/L Critically low 98-107 [facility] Comment on above: Performed By: #### T SH, BMP #### [facility] [address] [place] [address] Dr. Tasha Dodson CO2 [Moles/Vol] 24.5 mmol/L Normal 21.0-32.[address] [facility] Comment on above: Performed By: #### T SH, BMP #### [facility] [address] [place] [address] Dr. Tasha Dodson Creatinine [Mass/Vol] 0.54 mg/dL Critically low 0.55-1.02 [facility] Comment on above: Performed By: #### T SH, BMP #### [facility] [address] [place] [address] Dr. Tasha Dodson EGFR-AF PORTUGUESE >60 Normal >=[address] [facility] Comment on above: Performed By: #### T SH, BMP #### [facility] [address] [place] [address] Dr. Tasha Dodson EGFR-NON AF [place] >60 Normal >=60 [facility] Comment on above: Performed By: #### T SH, BMP #### [facility] [address] [place] [address] Dr. Tasha Dodson Globulin (S) [Mass/Vol] 3.1 g/dL Normal [facility] Comment on above: Performed By: #### T SH, BMP #### [facility] [address] [place] [address] Dr. Tasha Dodson Glucose [Mass/Vol] 123 mg/dL Critically high 74-106 [facility] Comment on above: Performed By: #### T SH, BMP #### [facility] [address] [place] [address] Dr. Tasha Dodson Potassium [Moles/Vol] 3.0 mmol/L Critically low 3.5-5.1 [facility] Comment on above: Performed By: #### T JESI, BMP #### [facility] [address] [place] [address] Dr. Tasha Dodson Protein [Mass/Vol] 6.3 g/dL Critically low 6.4-8.2 [facility] Comment on above: Performed By: #### T SH, BMP #### [facility] [address] [place] [address] Dr. Tasha Dodson Sodium [Moles/Vol] 128 mmol/L Critically low 136-145 [facility] Comment on above: Performed By: #### T JESI, BMP #### [facility] [address] [place] [address] Dr. Tasha Dodson Urea nitrogen [Mass/Vol] 5.0 mg/dL Critically low 7.0-18. 0 [facility] Comment on above: Performed By: #### T JESI, BMP #### [facility] [address] [place] [address] Dr. Tasha Dodson Urea nitrogen/Creatinine [Mass ratio] 9.3 mg/mg Normal [facility] Comment on above: Performed By: #### T JESI, BMP #### [facility] [address] [place] [address] Dr. Tasha Dodson SODIUM RANDOM URINEon 2021 Sodium (U) [Moles/Vol] 135 mmol/L Critically high 30-90 [facility] Comment on above: Performed By: #### C BC #### [facility] [address] [place] [address] Dr. Tasha Dodson CBC AUTO DIFFon 12-27-2021 BASO # 0.0 103/ul Normal 0.0-0.1 [facility] Comment on above: Performed By: #### C BC #### [facility] [address] [place] [address] Dr. Tasha Dodson Basophils/100 WBC (Bld) 0.2 % Normal 0.2-2.0 [facility] Comment on above: Performed By: #### C BC #### [facility] [address] [address] [address] Tasha Dodson EO # 0.3 103/ul Normal 0.0-0.7 [facility] Comment on above: Performed By: #### C BC #### [facility] [address] [place] [address] Dr. Tasha Dodson Eosinophils/100 WBC (Bld) 2.3 % Normal 0.9-7.0 [facility] Comment on above: Performed By: #### C BC #### [facility] [address] [place] [address] Dr. Tasha Dodson Erythrocyte distribution width (RBC) [Ratio] 12.4 % Normal 11.0-15.0 [facility] Comment on above: Performed By: #### C BC #### [facility] [address] [place] [address] Dr. Tasha Dodson Hematocrit (Bld) [Volume fraction] 35.4 % Critically low 36.0-48.0 [facility] Comment on above: Performed By: #### C BC #### [facility] [address] [place] [address] Dr. Tasha Dodson Hemoglobin (Bld) [Mass/Vol] 12.9 g/dL Normal 12.0-16.0 [facility] Comment on above: Performed By: #### C BC #### [facility] [address] [place] [address] Dr. Tasha Dodson IG # 0.06 10e3/ul Critically high 0.00-0.03 [facility] Comment on above: Performed By: #### C BC #### [facility] [address] [place] [address] Dr. Tasha Dodson IG % 0.5 % Normal 0.0-0.5 [facility] Comment on above: Performed By: #### C BC #### [facility] [address] [place] [address] Dr. Tasha Dodson LYMPH # 2.0 103/ul Normal 1.2-3.8 [facility] Comment on above: Performed By: #### C BC #### [facility] [address] [address] [address] Tasha Dodson Lymphocytes/100 WBC (Bld) 15.7 % Critically low 20.5-60.0 [facility] Comment on above: Performed By: #### C BC #### [facility] [address] [place] [address] Dr. Tasha Dodson MANUAL DIFF REQ NO Normal [facility] Comment on above: Performed By: #### C BC #### [facility] [address] [place] [address] Dr. Tasha Dodson MCH (RBC) [Entitic mass] 31.0 pg Normal 26.7-34.0 [facility] Comment on above: Performed By: #### C BC #### [facility] [address] [place] [address] Dr. Tasha Dodson MCHC (RBC) [Mass/Vol] 36.4 g/dL Critically high 29.9-35.2 [facility] Comment on above: Performed By: #### C BC #### [facility] [address] [place] [address] Dr. Tasha Dodson MCV (RBC) [Entitic vol] 85.1 fL Normal 81.0-99.0 [facility] Comment on above: Performed By: #### C BC #### [facility] [address] [place] [address] Dr. Tasha Dodson MONO # 1.1 103/ul Critically high 0.3-0.8 [facility] Comment on above: Performed By: #### C BC #### [facility] [address] [place] [address] Dr. Tasha Dodson Monocytes/100 WBC (Bld) 8.3 % Normal 1.7-12.0 [facility] Comment on above: Performed By: #### C BC #### [facility] [address] [place] [address] Dr. Tasha Dodson NEUT # 9.5 103/ul Critically high 1.4-6.5 [facility] Comment on above: Performed By: #### C BC #### [facility] [address] [address] [address] Tasha Dodson Neutrophils/100 WBC (Bld) 73.0 % Normal 43.0-75.0 [facility] Comment on above: Performed By: #### C BC #### [facility] [address] [address] [address] Tasha Dodson Platelet mean volume (Bld) [Entitic vol] 8.3 fL Critically low 9.5-13.5 [facility] Comment on above: Performed By: #### C BC #### [facility] [address] [address] [address] Tasha Dodson PLT 408 103/ul Normal 150-450 [facility] Comment on above: Performed By: #### C BC #### [facility] [address] [place] [address] Dr. Tasha Dodson RBC 4.16 106/ul Critically low 4.20-5.40 [facility] Comment on above: Performed By: #### C BC #### [facility] [address] [address] [address] Tasha Dodson WBC 13.0 103/ul Critically high 4.0-11.[address] [facility] Comment on above: Performed By: #### C BC #### [facility] [address] [address] [address] Tasha Dodson CULTURE SPUTUMon 12-27-2021 CULTURE SPUTUM Culture Observations: NORMAL RESPIRATORY AMADOU. Normal [facility] Comment on above: Performed By: #### C BC #### [facility] [address] [address] [address] Tasha Dodson PROF 14(COMP METB)on 022 Albumin [Mass/Vol] 3.4 g/dL Normal 3.4-5.0 [facility] Comment on above: Performed By: #### C MADM, LIPA, BNP, CMP #### [facility] [address] [address] [address] Tasha Dodson Albumin/Globulin [Mass ratio] 1.0 {ratio} Normal [facility] Comment on above: Performed By: #### C MADM, LIPA, BNP, CMP #### [facility] [address] [place] [address] Dr. Tasha Dodson ALP [Catalytic activity/Vol] 54 U/L Normal 46-116 [facility] Comment on above: Performed By: #### C MADM, LIPA, BNP, CMP #### [facility] [address] [place] [address] Dr. Tasha Dodson ALT [Catalytic activity/Vol] 20 U/L Normal 14-59 [facility] Comment on above: Performed By: #### C MADM, LIPA, BNP, CMP #### [facility] [address] [place] [address] Dr. Tasha Dodson Anion gap [Moles/Vol] 10.8 mmol/L Normal [facility] Comment on above: Performed By: #### C MADM, LIPA, BNP, CMP #### [facility] [address] [place] [address] Dr. Tasha Dodson AST [Catalytic activity/Vol] 19 U/L Normal 15-37 [facility] Comment on above: Performed By: #### C MADM, LIPA, BNP, CMP #### [facility] [address] [place] [address] Dr. Tasha Dodson Bilirubin [Mass/Vol] 0.5 mg/dL Normal 0.2-1.0 [facility] Comment on above: Performed By: #### C MADM, LIPA, BNP, CMP #### [facility] [address] [place] [address] Dr. Tasha Dodson Calcium [Mass/Vol] 8.3 mg/dL Critically low 8.5-10.1 [facility] Comment on above: Performed By: #### C MADM, LIPA, BNP, CMP #### [facility] [address] [place] [address] Dr. Tasha Dodson Chloride [Moles/Vol] 89 mmol/L Critically low 98-107 [facility] Comment on above: Performed By: #### C MADM, LIPA, BNP, CMP #### [facility] [address] [address] [address] Tasha Dodson CO2 [Moles/Vol] 27.0 mmol/L Normal 21.0-32.[address] [facility] Comment on above: Performed By: #### C MADM, LIPA, BNP, CMP #### [facility] [address] [address] [address] Tasha Dodson Creatinine [Mass/Vol] 0.69 mg/dL Normal 0.55-1.02 [facility] Comment on above: Performed By: #### C MADM, LIPA, BNP, CMP #### [facility] [address] [address] [address] Tasha Dodson EGFR-AF PORTUGUESE >60 Normal >=[address] [facility] Comment on above: Performed By: #### C MADM, LIPA, BNP, CMP #### [facility] [address] [address] [address] Tasha Dodson EGFR-NON AF [place]UGUESE >60 Normal >=60 [facility] Comment on above: Performed By: #### C MADM, LIPA, BNP, CMP #### [facility] [address] [address] [address] Tasha Dodson Globulin (S) [Mass/Vol] 3.3 g/dL Normal [facility] Comment on above: Performed By: #### C MADM, LIPA, BNP, CMP #### [facility] [address] [address] [address] Tasha Dodson Glucose [Mass/Vol] 115 mg/dL Critically high 74-106 [facility] Comment on above: Performed By: #### C MADM, LIPA, BNP, CMP #### [facility] [address] [address] [address] Tasha Dodson Potassium [Moles/Vol] 2.7 mmol/L Critically low 3.5-5.1 [facility] Comment on above: Result Comment: Test Repeated. Critical Value Verified Performed By: #### C MADM, LIPA, BNP, CMP #### [facility] [address] [place] [address] Dr. Tasha Dodson Protein [Mass/Vol] 6.7 g/dL Normal 6.4-8.2 [facility] Comment on above: Performed By: #### C MADM, LIPA, BNP, CMP #### [facility] [address] [address] [address] Tasha Dodson Sodium [Moles/Vol] 123 mmol/L Critically low 136-145 [facility] Comment on above: Result Comment: Test Repeated. Critical Value Verified Performed By: #### C MADM, LIPA, BNP, CMP #### [facility] [address] [address] [address] Tasha Dodson Urea nitrogen [Mass/Vol] 6.0 mg/dL Critically low 7.0-18. 0 [facility] Comment on above: Performed By: #### C MADM, LIPA, BNP, CMP #### [facility] [address] [place] [address] Dr. Tasha Dodson Urea nitrogen/Creatinine [Mass ratio] 8.7 mg/mg Normal [facility] Comment on above: Performed By: #### C MADM, LIPA, BNP, CMP #### [facility] [address] [address] [address] Tasha Dodson SPUTUM GRAM STAINon 12-28-19 COMMENTS Normal [facility] Comment on above: Performed By: #### T SH, BMP #### [facility] [address] [place] [address] Dr. Tasha Dodson DIPHTHEROIDS Normal [facility] Comment on above: Performed By: #### T SH, BMP #### [facility] [address] [place] [address] Dr. Tasha Dodson EPITHELIALS <25 Normal [facility] Comment on above: Performed By: #### T SH, BMP #### [facility] [address] [place] [address] Dr. Tasha Dodson FUNGAL ELEMENTS Normal [facility] Comment on above: Performed By: #### T SH, BMP #### [facility] [address] [place] [address] Dr. Tasha Dodson GRAM NEG BACILLI Normal [facility] Comment on above: Performed By: #### T SH, BMP #### [facility] [address] [address] [address] Tasha Dodson GRAM NEG DIPPLOCOCCI Normal [facility] Comment on above: Performed By: #### T SH, BMP #### [facility] [address] [address] [address] Tasha Dodson GRAM POS BACILLI Normal [facility] Comment on above: Performed By: #### T SH, BMP #### [facility] [address] [address] [address] Tasha Dodson GRAM POSITIVE COCCI MODERATE Normal [facility] Comment on above: Performed By: #### T SH, BMP #### [facility] [address] [place] [address] Dr. Tasha Dodson WBC (Bld) [#/Vol] 10*3/uL Normal [facility] Comment on above: Performed By: #### T SH, BMP #### [facility] [address] [place] [address] Dr. Tasha Dodson BNPon 12-26-2021 Natriuretic peptide B (Bld) [Mass/Vol] 148.0 pg/mL Normal <=1,800.0 [facility] Comment on above: Performed By: #### C MADM, LIPA, BNP, CMP #### [facility] [address] [place] [address] Dr. Tasha Dodson CARDIAC ANGELO ADMITon 022 CK [Catalytic activity/Vol] 139 U/L Normal 26-192 [facility] Comment on above: Performed By: #### C MADM, LIPA, BNP, CMP #### [facility] [address] [place] [address] Dr. Tasha Dodson CK.MB [Mass/Vol] 2.43 ng/mL Normal <=3.[address] [facility] Comment on above: Performed By: #### C MADM, LIPA, BNP, CMP #### [facility] [address] [place] [address] Dr. Tasha Dodson HSTROP 12.2 pg/mL Normal 4.0-51.3 [facility] Comment on above: Result Comment: CUT- OFF POINTS HAVE BEEN ESTABLISHED BASED ON THE FOURTH UNIVERSAL DEFINITIONS OF MYOCARDIAL INFARCTION. THE UPPER REFERENCE LIMIT (URL) OF TROPONIN, DEFINED THE 99TH PERCENTILE OF cTnI DISTRIBUTION IN A REFERENCE POPULATION, HAS BEEN CONFIRMED THE DECISION THRESHOLD FOR AR DIAGNOSIS. Performed By: #### C MADM, LIPA, BNP, CMP #### [facility] [address] [place] [address] Dr. Tasha Dodson ELIZABETH 110 ng/mL Critically high 9-82 [facility] Comment on above: Performed By: #### C MADM, LIPA, BNP, CMP #### [facility] [address] [place] [address] Dr. Tasha Dodson CBC AUTO DIFFon 12-26-2021 BASO # 0.0 103/ul Normal 0.0-0.1 [facility] Comment on above: Performed By: #### C MADM, LIPA, BNP, CMP #### [facility] [address] [place] [address] Dr. Tasha Dodson Basophils/100 WBC (Bld) 0.3 % Normal 0.2-2.0 [facility] Comment on above: Performed By: #### C MADM, LIPA, BNP, CMP #### [facility] [address] [place] [address] Dr. Tasha Dodson EO # 0.1 103/ul Normal 0.0-0.7 [facility] Comment on above: Performed By: #### C MADM, LIPA, BNP, CMP #### [facility] [address] [place] [address] Dr. Tasha Dodson Eosinophils/100 WBC (Bld) 0.7 % Critically low 0.9-7.0 [facility] Comment on above: Performed By: #### C MADM, LIPA, BNP, CMP #### [facility] [address] [place] [address] Dr. Tasha Dodson Erythrocyte distribution width (RBC) [Ratio] 12.4 % Normal 11.0-15.0 [facility] Comment on above: Performed By: #### C MADM, LIPA, BNP, CMP #### [facility] [address] [place] [address] Dr. Tasha Dodson Hematocrit (Bld) [Volume fraction] 38.9 % Normal 36.0-48.0 [facility] Comment on above: Performed By: #### C MADM, LIPA, BNP, CMP #### [facility] [address] [place] [address] Dr. Tasha Dodson Hemoglobin (Bld) [Mass/Vol] 14.4 g/dL Normal 12.0-16.0 [facility] Comment on above: Performed By: #### C MADM, LIPA, BNP, CMP #### [facility] [address] [place] [address] Dr. Tasha Dodson IG # 0.08 10e3/ul Critically high 0.00-0.03 [facility] Comment on above: Performed By: #### C MADM, LIPA, BNP, CMP #### [facility] [address] [place] [address] Dr. Tasha Dodson IG % 0.5 % Normal 0.0-0.5 [facility] Comment on above: Performed By: #### C MADM, LIPA, BNP, CMP #### [facility] [address] [place] [address] Dr. Tasha Dodson LYMPH # 2.2 103/ul Normal 1.2-3.8 [facility] Comment on above: Performed By: #### C MADM, LIPA, BNP, CMP #### [facility] [address] [place] [address] Dr. Tasha Dodson Lymphocytes/100 WBC (Bld) 15.0 % Critically low 20.5-60.0 [facility] Comment on above: Performed By: #### C MADM, LIPA, BNP, CMP #### [facility] [address] [place] [address] Dr. Tasha Dodson MANUAL DIFF REQ NO Normal [facility] Comment on above: Performed By: #### C MADM, LIPA, BNP, CMP #### [facility] [address] [place] [address] Dr. Tasha Dodson MCH (RBC) [Entitic mass] 31.6 pg Normal 26.7-34.0 [facility] Comment on above: Performed By: #### C MADM, LIPA, BNP, CMP #### [facility] [address] [place] [address] Dr. Tasha Dodson MCHC (RBC) [Mass/Vol] 37.0 g/dL Critically high 29.9-35.2 [facility] Comment on above: Performed By: #### C MADM, LIPA, BNP, CMP #### [facility] [address] [place] [address] Dr. Tasha Dodson MCV (RBC) [Entitic vol] 85.3 fL Normal 81.0-99.0 [facility] Comment on above: Performed By: #### C MADM, LIPA, BNP, CMP #### [facility] [address] [place] [address] Dr. Tasha Dodson MONO # 1.0 103/ul Critically high 0.3-0.8 [facility] Comment on above: Performed By: #### C MADM, LIPA, BNP, CMP #### [facility] [address] [place] [address] Dr. Tasha Dodson Monocytes/100 WBC (Bld) 6.8 % Normal 1.7-12.0 [facility] Comment on above: Performed By: #### C MADM, LIPA, BNP, CMP #### [facility] [address] [place] [address] Dr. Tasha Dodson NEUT # 11.5 103/ul Critically high 1.4-6.[address] [facility] Comment on above: Performed By: #### C MADM, LIPA, BNP, CMP #### [facility] [address] [place] [address] Dr. Tasha Dodson Neutrophils/100 WBC (Bld) 76.7 % Critically high 43.0-75.0 [facility] Comment on above: Performed By: #### C MADM, LIPA, BNP, CMP #### [facility] [address] [place] [address] Dr. Tasha Dodson Platelet mean volume (Bld) [Entitic vol] 8.6 fL Critically low 9.5-13.5 [facility] Comment on above: Performed By: #### C MADM, LIPA, BNP, CMP #### [facility] [address] [address] [address] Tasha Dodson PLT 491 103/ul Critically high 150-450 [facility] Comment on above: Performed By: #### C MADM, LIPA, BNP, CMP #### [facility] [address] [place] [address] Dr. Tasha Dodson RBC 4.56 106/ul Normal 4.20-5.40 [facility] Comment on above: Performed By: #### C MADM, LIPA, BNP, CMP #### [facility] [address] [place] [address] Dr. Tasha Dodson WBC 15.0 103/ul Critically high 4.0-11.0 [facility] Comment on above: Performed By: #### C MADM, LIPA, BNP, CMP #### [facility] [address] [place] [address] Dr. Tasha Dodson CULTURE URINEon 12-26-2021 CULTURE URINE Culture Observations: LIGHT GROWTH OF MIXED GENITAL AMADOU. NO POTENTIAL PATHOGENS SEEN. Normal [facility] Comment on above: Performed By: #### C BC #### [facility] [address] [place] [address] Dr. Tasha Dodson [facility] SARS-CoV-2 (COVID-19) RNA CARITO+probe Ql (Unsp spec) Not detected Normal NOT DETECTED [facility] Comment on above: Result Comment: When diagnostic [...] for this test is supported by the Typing Secretary of Health and Human Service's declaration that [...] #### C MADM, LIPA, BNP, CMP #### [facility] [address] [place] [address] Dr. Tasha Dodson ER URINE PROFILEon 2 Bilirubin Ql (U) Negative Normal NEGATIVE [facility] Comment on above: Performed By: #### T SH, BMP #### [facility] [address] [place] [address] Dr. Tasha Dodson Clarity (U) CLEAR Normal CLEAR [facility] Comment on above: Performed By: #### T SH, BMP #### [facility] [address] [place] [address] Dr. Tasha Dodson Color (U) LT. YELLOW Normal YELLOW [facility] Comment on above: Performed By: #### T SH, BMP #### [facility] [address] [place] [address] Dr. Tasha FERNANDES A micrscopic examination will be performed if indicated. Normal [facility] Comment on above: Performed By: #### T SH, BMP #### [facility] [address] [place] [address] Dr. Tasha Dodson Glucose Ql (U) Negative Normal NEGATIVE [facility] Comment on above: Performed By: #### T SH, BMP #### [facility] [address] [place] [address] Dr. Tasha Dodson Hemoglobin Ql (U) TRACE-INTACT Abnormal NEGATIVE [facility] Comment on above: Performed By: #### T SH, BMP #### [facility] [address] [place] [address] Dr. Tasha Dodson Ketones Ql (U) TRACE Abnormal NEGATIVE [facility] Comment on above: Performed By: #### T SH, BMP #### [facility] [address] [place] [address] Dr. Tasha Dodson LEUKOCYTES Negative Normal NEGATIVE [facility] Comment on above: Performed By: #### T SH, BMP #### [facility] [address] [place] [address] Dr. Tasha Dodson Nitrite Ql (U) Negative Normal NEGATIVE [facility] Comment on above: Performed By: #### T SH, BMP #### [facility] [address] [place] [address] Dr. Tasha Dodson pH (U) 7.0 [pH] Normal 5-9 [facility] Comment on above: Performed By: #### T SH, BMP #### [facility] [address] [place] [address] Dr. Tasha Dodson SPEC GRAVITY 1.010 Normal 1.005-<=1.02 5 [facility] Comment on above: Performed By: #### T SH, BMP #### [facility] [address] [place] [address] Dr. Tasha Dodson UA PROTEIN Negative Normal NEGATIVE/ TRACE [facility] Comment on above: Performed By: #### T SH, BMP #### [facility] [address] [place] [address] Dr. Tasha Dodson UR MICRO IND INDICATED Normal [facility] Comment on above: Performed By: #### T SH, BMP #### [facility] [address] [place] [address] Dr. Tasha Dodson Urobilinogen Qn (U) 0.2 {Juan'U}/dL Normal 0.2 - 1. 0 [facility] Comment on above: Performed By: #### T SH, BMP #### [facility] [address] [place] [address] Dr. Tasha Dodson INFLUENZA A AND B AGon 12-26 INFLUANEGH SEE BELOW Normal [facility] Comment on above: Result Comment: Nega tive for Flu A protein angiten. Infection due to Flu A cannot be ruled out. Flu A angiten in the sample may be below the detection limit of the test. Performed By: #### C BC #### [facility] [address] [place] [address] Dr. Tasha Dodson [facility] SEE BELOW Normal [facility] Comment on above: Result Comment: Nega tive for Flu B protein antigen. Infection due to Flu B cannot be ruled out. Flu B antigen in the sample may be below the detection limit of the test. Performed By: #### C BC #### [facility] [address] [place] [address] Dr. Tasha Dodson INFLUENZA A AG Negative Normal NEGATIVE SEE COMMENT [facility] Comment on above: Performed By: #### C BC #### [facility] [address] [place] [address] Dr. Tasha Dodson INFLUENZA B AG Negative Normal NEGATIVE SEE COMMENT [facility] Comment on above: Performed By: #### C BC #### [facility] [address] [place] [address] Dr. Tasha Dodson INTERNAL CONTROLS Within Normal Limits Normal Wi thin Normal Limits [facility] Comment on above: Performed By: #### C BC #### [facility] [address] [place] [address] Dr. Tasha Dodson LACTATE/LACTIC ACIDon 2021 Lactate [Moles/Vol] 1.5 mmol/L Normal 0.4-1.9 [facility] Comment on above: Performed By: #### T SH, BMP #### [facility] [address] [place] [address] Dr. Tasha Dodson LIPASEon 12-26-2021 Lipase [Catalytic activity/Vol] 96.0 U/L Normal 73.0-393.0 [facility] Comment on above: Performed By: #### C MADM, LIPA, BNP, CMP #### [facility] [address] [place] [address] Dr. Tasha Dodson PROF 14(COMP METB)on 022 Albumin [Mass/Vol] 4.2 g/dL Normal 3.4-5.0 [facility] Comment on above: Performed By: #### C MADM, LIPA, BNP, CMP #### [facility] [address] [place] [address] Dr. Tasha Dodson Albumin/Globulin [Mass ratio] 1.1 {ratio} Normal [facility] Comment on above: Performed By: #### C MADM, LIPA, BNP, CMP #### [facility] [address] [place] [address] Dr. Tasha Dodson ALP [Catalytic activity/Vol] 68 U/L Normal 46-116 [facility] Comment on above: Performed By: #### C MADM, LIPA, BNP, CMP #### [facility] [address] [place] [address] Dr. Tasha Dodson ALT [Catalytic activity/Vol] 23 U/L Normal 14-59 [facility] Comment on above: Performed By: #### C MADM, LIPA, BNP, CMP #### [facility] [address] [place] [address] Dr. Tasha Dodson Anion gap [Moles/Vol] 12.3 mmol/L Normal [facility] Comment on above: Performed By: #### C MADM, LIPA, BNP, CMP #### [facility] [address] [place] [address] Dr. Tasha Dodson AST [Catalytic activity/Vol] 25 U/L Normal 15-37 [facility] Comment on above: Performed By: #### C MADM, LIPA, BNP, CMP #### [facility] [address] [place] [address] Dr. Tasha Dodson Bilirubin [Mass/Vol] 0.7 mg/dL Normal 0.2-1.0 [facility] Comment on above: Performed By: #### C MADM, LIPA, BNP, CMP #### [facility] [address] [place] [address] Dr. Tasha Dodson Calcium [Mass/Vol] 9.5 mg/dL Normal 8.5-10.1 [facility] Comment on above: Performed By: #### C MADM, LIPA, BNP, CMP #### [facility] [address] [place] [address] Dr. Tasha Dodson Chloride [Moles/Vol] 80 mmol/L Critically low 98-107 [facility] Comment on above: Performed By: #### C MADM, LIPA, BNP, CMP #### [facility] [address] [address] [address] Tasha Dodson CO2 [Moles/Vol] 27.1 mmol/L Normal 21.0-32.[address] [facility] Comment on above: Performed By: #### C MADM, LIPA, BNP, CMP #### [facility] [address] [address] [address] Tasha Dodson Creatinine [Mass/Vol] 0.85 mg/dL Normal 0.55-1.02 [facility] Comment on above: Performed By: #### C MADM, LIPA, BNP, CMP #### [facility] [address] [address] [address] Tasha Dodson EGFR-AF PORTUGUESE >60 Normal >=[address] [facility] Comment on above: Performed By: #### C MADM, LIPA, BNP, CMP #### [facility] [address] [address] [address] Tasha Dodson EGFR-NON AF [place]UGUES[place] >60 Normal >=60 [facility] Comment on above: Performed By: #### C MADM, LIPA, BNP, CMP #### [facility] [address] [address] [address] Tasha Dodson Globulin (S) [Mass/Vol] 3.9 g/dL Normal [facility] Comment on above: Performed By: #### C MADM, LIPA, BNP, CMP #### [facility] [address] [address] [address] Tasha Dodson Glucose [Mass/Vol] 132 mg/dL Critically high 74-106 [facility] Comment on above: Performed By: #### C MADM, LIPA, BNP, CMP #### [facility] [address] [address] [address] Tasha Dodson Potassium [Moles/Vol] 2.4 mmol/L Critically low 3.5-5.1 [facility] Comment on above: Performed By: #### C MADM, LIPA, BNP, CMP #### [facility] [address] [place] [address] Dr. Tasha Dodson Protein [Mass/Vol] 8.1 g/dL Normal 6.4-8.2 [facility] Comment on above: Performed By: #### C MADM, LIPA, BNP, CMP #### [facility] [address] [place] [address] Dr. Tasha Dodson Sodium [Moles/Vol] 116 mmol/L Critically low 136-145 [facility] Comment on above: Performed By: #### C MADM, LIPA, BNP, CMP #### [facility] [address] [place] [address] Dr. Tasha Dodson Urea nitrogen [Mass/Vol] 12.0 mg/dL Normal 7.0-18.0 [facility] Comment on above: Performed By: #### C MADM, LIPA, BNP, CMP #### [facility] [address] [place] [address] Dr. Tasha Dodson Urea nitrogen/Creatinine [Mass ratio] 14.1 mg/mg [facility] Comment on above: Performed By: #### C MADM, LIPA, BNP, CMP #### [facility] [address] [place] [address] Dr. Tasha Dodson PROF CHEM 8 (BAS METB)on Anion gap [Moles/Vol] 11.4 mmol/L Normal [facility] Comment on above: Performed By: #### T SH, BMP #### [facility] [address] [place] [address] Dr. Tasha Dodson Calcium [Mass/Vol] 8.4 mg/dL Critically low 8.5-10.1 [facility] Comment on above: Performed By: #### T SH, BMP #### [facility] [address] [place] [address] Dr. Tasha Dodson Chloride [Moles/Vol] 89 mmol/L Critically low 98-107 [facility] Comment on above: Performed By: #### T SH, BMP #### [facility] [address] [address] [address] Tasha Dodson CO2 [Moles/Vol] 25.5 mmol/L Normal 21.0-32.[address] [facility] Comment on above: Performed By: #### T SH, BMP #### [facility] [address] [address] [address] Tasha Dodson Creatinine [Mass/Vol] 0.89 mg/dL Normal 0.55-1.02 [facility] Comment on above: Performed By: #### T SH, BMP #### [facility] [address] [address] [address] Tasha Dodson EGFR-AF PORTUGUESE >60 Normal >=[address] [facility] Comment on above: Performed By: #### T SH, BMP #### [facility] [address] [address] [address] Tasha Dodson EGFR-NON AF [place]UGUESE 60 mL/min/1.73m2 Normal >=60 [facility] Comment on above: Performed By: #### T SH, BMP #### [facility] [address] [address] [address] Tasha Dodson Glucose [Mass/Vol] 166 mg/dL Critically high 74-106 [facility] Comment on above: Performed By: #### T SH, BMP #### [facility] [address] [address] [address] Tasha Dodson Potassium [Moles/Vol] 3.0 mmol/L Critically low 3.5-5.1 [facility] Comment on above: Performed By: #### T SH, BMP #### [facility] [address] [address] [address] Tasha Dodson Sodium [Moles/Vol] 123 mmol/L Critically low 136-145 [facility] Comment on above: Performed By: #### T SH, BMP #### [facility] [address] [address] [address] Tasha Dodson Urea nitrogen [Mass/Vol] 9.0 mg/dL Normal 7.0-18.0 [facility] Comment on above: Performed By: #### T SH, BMP #### [facility] [address] [place] [address] Dr. Tasha Dodson Urea nitrogen/Creatinine [Mass ratio] 10.1 mg/mg Normal [facility] Comment on above: Performed By: #### T JESI, BMP #### [facility] [address] [place] [address] Dr. Tasha Dodson PROTIMEon 12-26-2021 INR Coag (PPP) [Relative time] 0.96 {INR} Normal [facility] Comment on above: Performed By: #### T JESI, BMP #### [facility] [address] [place] [address] Dr. Tasha Dodson INR GUIDELINES SEE BELOW Normal [facility] Comment on above: Result Comment: JO RED INR: 2.0 - 3.0 CONDITIONS NOT LISTED BELOW 2.5 - 3.5 FOR PROSTHETIC HEART VALVE REPLACEMENT 2.5 - 3.5 RECURRENT THROMBOSIS Performed By: #### T JESI, BMP #### [facility] [address] [place] [address] Dr. Tasha Dodson PT Coag (PPP) [Time] 10.4 s Normal 9.0-11.6 [facility] Comment on above: Performed By: #### T JESI, BMP #### [facility] [address] [place] [address] Dr. Tasha Dodson PTTon 12-26-2021 aPTT Coag (Bld) [Time] 26.2 s Normal 22.3-36.2 [facility] Comment on above: Performed By: #### T JESI, BMP #### [facility] [address] [place] [address] Dr. Tasha Dodson SODIUM RANDOM URINEon 2021 Sodium (U) [Moles/Vol] 71 mmol/L Normal 30-90 [facility] Comment on above: Performed By: #### T JESI, BMP #### [facility] [address] [place] [address] Dr. Tasha Dodson T4on 12-26-2021 T4 [Mass/Vol] 10.60 ug/dL Normal 4.80-13.90 [facility] Comment on above: Performed By: #### C BC #### [facility] [address] [place] [address] Dr. Tasha Dodson TSHon 12-26-2021 TSH 5.236 uIU/mL Critically high 0.358-3.740 [facility] Comment on above: Performed By: #### C BC #### [facility] [address] [place] [address] Dr. Tasha Dodson URINE MICROSCOPIC ONLYon BACTERIA TRACE Abnormal NONE SEEN [facility] Comment on above: Performed By: #### T SH, BMP #### [facility] [address] [place] [address] Dr. Tasha Dodson Bacteria identified Cx Nom (U) NOT INDICATED Normal [facility] Comment on above: Performed By: #### T SH, BMP #### [facility] [address] [place] [address] Dr. Tasha Dodson CAST NONE SEEN Normal NONE SEEN [facility] Comment on above: Performed By: #### T SH, BMP #### [facility] [address] [place] [address] Dr. Tasha Dodson Crystals LM Nom (Urine sed) NONE SEEN Normal NONE SEEN [facility] Comment on above: Performed By: #### T SH, BMP #### [facility] [address] [place] [address] Dr. Tasha Dodson Epithelial cells LM Ql (Urine sed) NONE SEEN Normal NONE SEEN /RARE [facility] Comment on above: Performed By: #### T SH, BMP #### [facility] [address] [place] [address] Dr. Tasha Dodson MUCOUS NONE SEEN Normal NONE SEEN [facility] Comment on above: Performed By: #### T SH, BMP #### [facility] [address] [place] [address] Dr. Tasha Dodson RBC 0-2 Normal 0-2 [facility] Comment on above: Performed By: #### T SH, BMP #### [facility] [address] [place] [address] Dr. Tasha Dodson WBC 0-2 Abnormal NONE SEEN [facility] Comment on above: Performed By: #### T SH, BMP #### [facility] [address] [address] [address] Tasha Dodson XR CHEST 1 Von [...] TING MIXON Date: 2021-12-26 11:32 Normal [facility] XR LSPINE MIN 4 VIEWSon 11-20 XR [...] JESUS BRUNO Date: 2021-11-30 22:52 Normal [facility] CBC AUTO DIFFon 11-09-2021 BASO # 0.1 103/ul Normal 0.0-0.1 [facility] Comment on above: Performed By: #### C MADM, LIPA, BNP, CMP #### [facility] [address] [place], [place] [address] Dr. Tasha Dodson Basophils/100 WBC (Bld) 0.7 % Normal 0.2-2.0 [facility] Comment on above: Performed By: #### C MADM, LIPA, BNP, CMP #### [facility] [address] [place] [address] Dr. Tasha Dodson EO # 0.2 103/ul Normal 0.0-0.7 [facility] Comment on above: Performed By: #### C MADM, LIPA, BNP, CMP #### [facility] [address] [place] [address] Dr. Tasha Dodson Eosinophils/100 WBC (Bld) 1.8 % Normal 0.9-7.0 [facility] Comment on above: Performed By: #### C MADM, LIPA, BNP, CMP #### [facility] [address] [place] [address] Dr. Tasha Dodson Erythrocyte distribution width (RBC) [Ratio] 13.0 % Normal 11.0-15.0 [facility] Comment on above: Performed By: #### C MADM, LIPA, BNP, CMP #### [facility] [address] [place] [address] Dr. Tasha Dodson Hematocrit (Bld) [Volume fraction] 33.8 % Critically low 36.0-48.0 [facility] Comment on above: Performed By: #### C MADM, LIPA, BNP, CMP #### [facility] [address] [place] [address] Dr. Tasha Dodson Hemoglobin (Bld) [Mass/Vol] 12.5 g/dL Normal 12.0-16.0 [facility] Comment on above: Performed By: #### C MADM, LIPA, BNP, CMP #### [facility] [address] [place] [address] Dr. Tasha Dodson IG # 0.02 10e3/ul Normal 0.00-0.03 [facility] Comment on above: Performed By: #### C MADM, LIPA, BNP, CMP #### [facility] [address] [place] [address] Dr. Tasha Dodson IG % 0.2 % Normal 0.0-0.5 [facility] Comment on above: Performed By: #### C MADM, LIPA, BNP, CMP #### [facility] [address] [place] [address] Dr. Tasha Dodson LYMPH # 2.9 103/ul Normal 1.2-3.8 [facility] Comment on above: Performed By: #### C MADM, LIPA, BNP, CMP #### [facility] [address] [place] [address] Dr. Tasha Dodson Lymphocytes/100 WBC (Bld) 29.4 % Normal 20.5-60.0 [facility] Comment on above: Performed By: #### C MADM, LIPA, BNP, CMP #### [facility] [address] [place] [address] Dr. Tasha Dodson MANUAL DIFF REQ NO Normal [facility] Comment on above: Performed By: #### C MADM, LIPA, BNP, CMP #### [facility] [address] [place] [address] Dr. Tasha Dodson MCH (RBC) [Entitic mass] 34.1 pg Critically high 26.7-3 4.0 [facility] Comment on above: Performed By: #### C MADM, LIPA, BNP, CMP #### [facility] [address] [place] [address] Dr. Tasha Dodson MCHC (RBC) [Mass/Vol] 37.0 g/dL Critically high 29.9-35.2 [facility] Comment on above: Performed By: #### C MADM, LIPA, BNP, CMP #### [facility] [address] [place] [address] Dr. Tasha Dodson MCV (RBC) [Entitic vol] 92.1 fL Normal 81.0-99.0 [facility] Comment on above: Performed By: #### C MADM, LIPA, BNP, CMP #### [facility] [address] [place] [address] Dr. Tasha Dodson MONO # 0.8 103/ul Normal 0.3-0.8 [facility] Comment on above: Performed By: #### C MADM, LIPA, BNP, CMP #### [facility] [address] [address] [address] Tasha Dodson Monocytes/100 WBC (Bld) 8.2 % Normal 1.7-12.0 [facility] Comment on above: Performed By: #### C MADM, LIPA, BNP, CMP #### [facility] [address] [address] [address] Tasha Dodson NEUT # 5.9 103/ul Normal 1.4-6.5 [facility] Comment on above: Performed By: #### C MADM, LIPA, BNP, CMP #### [facility] [address] [address] [address] Tasha Dodson Neutrophils/100 WBC (Bld) 59.7 % Normal 43.0-75.0 [facility] Comment on above: Performed By: #### C MADM, LIPA, BNP, CMP #### [facility] [address] [place] [address] Dr. Tasha Dodson Platelet mean volume (Bld) [Entitic vol] 8.9 fL Critically low 9.5-13.5 [facility] Comment on above: Performed By: #### C MADM, LIPA, BNP, CMP #### [facility] [address] [place] [address] Dr. Tasha Dodson PLT 370 103/ul Normal 150-450 [facility] Comment on above: Performed By: #### C MADM, LIPA, BNP, CMP #### [facility] [address] [place] [address] Dr. Tasha Dodson RBC 3.67 106/ul Critically low 4.20-5.40 [facility] Comment on above: Performed By: #### C MADM, LIPA, BNP, CMP #### [facility] [address] [place] [address] Dr. Tasha Dodson WBC 9.9 103/ul Normal 4.0-11.0 [facility] Comment on above: Performed By: #### C MADM, LIPA, BNP, CMP #### [facility] [address] [place] [address] Dr. Tasha Dodson FREE T4on 11-09-2021 Free T4 [Mass/Vol] 1.48 ng/dL Critically high 0.76-1.46 [facility] Comment on above: Performed By: #### F T4 #### [facility] [address] [place] [address] Dr. Tasha Dodson PROF CHEM 8 (BAS METB)on Anion gap [Moles/Vol] 11.1 mmol/L Normal [facility] Comment on above: Performed By: #### T SH, BMP #### [facility] [address] [place] [address] Dr. Tasha Dodson Calcium [Mass/Vol] 9.3 mg/dL Normal 8.5-10.1 [facility] Comment on above: Performed By: #### T SH, BMP #### [facility] [address] [place] [address] Dr. Tasha Dodson Chloride [Moles/Vol] 92 mmol/L Critically low 98-107 [facility] Comment on above: Performed By: #### T SH, BMP #### [facility] [address] [place] [address] Dr. Tasha Dodson CO2 [Moles/Vol] 29.2 mmol/L Normal 21.0-32.[address] [facility] Comment on above: Performed By: #### T SH, BMP #### [facility] [address] [place] [address] Dr. Tasha Dodson Creatinine [Mass/Vol] 0.68 mg/dL Normal 0.55-1.02 [facility] Comment on above: Performed By: #### T SH, BMP #### [facility] [address] [place] [address] Dr. Tasha Dodson EGFR-AF PORTUGUESE >60 Normal >=60 [facility] Comment on above: Performed By: #### T SH, BMP #### [facility] [address] [place] [address] Dr. Tasha Dodson EGFR-NON AF [place]UESE >60 Normal >=60 [facility] Comment on above: Performed By: #### T SH, BMP #### [facility] [address] [place] [address] Dr. Tasha Dodson Glucose [Mass/Vol] 109 mg/dL Critically high 74-106 [facility] Comment on above: Performed By: #### T SH, BMP #### [facility] [address] [place] [address] Dr. Tasha Dodson Potassium [Moles/Vol] 3.3 mmol/L Critically low 3.5-5.1 [facility] Comment on above: Performed By: #### T SH, BMP #### [facility] [address] [place] [address] Dr. Tasha Dodson Sodium [Moles/Vol] 129 mmol/L Critically low 136-145 [facility] Comment on above: Performed By: #### T SH, BMP #### [facility] [address] [place] [address] Dr. Tasha Dodson Urea nitrogen [Mass/Vol] 9.0 mg/dL Normal 7.0-18.0 [facility] Comment on above: Performed By: #### T JESI, BMP #### [facility] [address] [place] [address] Dr. Tasha Dodson Urea nitrogen/Creatinine [Mass ratio] 13.2 mg/mg Normal [facility] Comment on above: Performed By: #### T SH, BMP #### [facility] [address] [place] [address] Dr. Tasha Dodson TSHon 11-09-2021 TSH 1.193 uIU/mL Normal 0.358-3.740 [facility] Comment on above: Performed By: #### T SH, BMP #### [facility] [address] [place] [address] Dr. Tasha Dodson LIPID PROFILEon 08-06-2021 CHOL-HDL RATIO NORM SEE BELOW Normal [facility] Comment on above: Result Comment: 3.3 - 4.4 LOW RISK 4.4 - 7.1 AVERAGE RISK 7.1 - 11.0 MODERATE RISK >11.0 HIGH RISK Performed By: #### C MADM, LIPA, BNP, CMP #### [facility] [address] [place] [address] Dr. Tasha Dodson Cholesterol [Mass/Vol] 198 mg/dL Normal <=200 [facility] Comment on above: Performed By: #### C MADM, LIPA, BNP, CMP #### [facility] [address] [address] [address] Tasha Dodson Cholesterol in HDL [Mass/Vol] 77 mg/dL Critically high 40-60 [facility] Comment on above: Performed By: #### C MADM, LIPA, BNP, CMP #### [facility] [address] [address] [address] Tasha Dodson Cholesterol in LDL [Mass/Vol] 106.0 mg/dL Normal [facility] Comment on above: Performed By: #### C MADM, LIPA, BNP, CMP #### [facility] [address] [address] [address] Tasha Dodson Cholesterol.total/Choles terol in HDL [Mass ratio] 2.6 {ratio} Normal [facility] Comment on above: Performed By: #### C MADM, LIPA, BNP, CMP #### [facility] [address] [address] [address] Tasha Dodson HDL NORMAL > or = 60 mg/dl - LOW CARDIOVASCULAR RISK <40 mg/dl - HIGH CARDIOVASCULAR RISK Normal [facility] Comment on above: Performed By: #### C MADM, LIPA, BNP, CMP #### [facility] [address] [address] [address] Tasha Dodson LDL CALC NORMAL SEE BELOW Normal [facility] Comment on above: Result Comment: <100 mg/dl OPTIMAL 100 - 129 mg/dl NEAR OR ABOVE OPTIMAL 130 - 159 mg/dl BORDERLINE HIGH 160 - 189 mg/dl HIGH >190 mg/dl VERY HIGH Performed By: #### C MADM, LIPA, BNP, CMP #### [facility] [address] [address] [address] Tasha Dodson Triglyceride [Mass/Vol] 75 mg/dL Normal <=150 [facility] Comment on above: Performed By: #### C MADM, LIPA, BNP, CMP #### [facility] [address] [address] [address] Tasha Dodson VLDL CALC 15.0 mg/dL Normal [facility] Comment on above: Performed By: #### C MADM, LIPA, BNP, CMP #### [facility] [address] [address] [address] Tasha Dodson LIVER PROFILEon 08-06-2021 Albumin [Mass/Vol] 3.7 g/dL Normal 3.4-5.0 [facility] Comment on above: Performed By: #### C MADM, LIPA, BNP, CMP #### [facility] [address] [address] [address] Tasha Dodson Albumin/Globulin [Mass ratio] 1.0 {ratio} Normal [facility] Comment on above: Performed By: #### C MADM, LIPA, BNP, CMP #### [facility] [address] [address] [address] Tasha Dodson ALP [Catalytic activity/Vol] 62 U/L Normal 46-116 [facility] Comment on above: Performed By: #### C MADM, LIPA, BNP, CMP #### [facility] [address] [address] [address] Tasha Dodson ALT [Catalytic activity/Vol] 26 U/L Normal 14-59 [facility] Comment on above: Performed By: #### C MADM, LIPA, BNP, CMP #### [facility] [address] [address] [address] Tasha Dodson AST [Catalytic activity/Vol] 24 U/L Normal 15-37 [facility] Comment on above: Performed By: #### C MADM, LIPA, BNP, CMP #### [facility] [address] [address] [address] Tasha Dodson BILI, CONJUGATED 0.1 mg/dL Normal 0.0-0.[address] [facility] Comment on above: Performed By: #### C MADM, LIPA, BNP, CMP #### [facility] [address] [address] [address] Tasha Dodson Bilirubin [Mass/Vol] 0.5 mg/dL Normal 0.2-1.0 [facility] Comment on above: Performed By: #### C MADM, LIPA, BNP, CMP #### [facility] [address] [place] [address] Dr. Tasha Dodson Globulin (S) [Mass/Vol] 3.8 g/dL Normal [facility] Comment on above: Performed By: #### C MADM, LIPA, BNP, CMP #### [facility] [address] [place] [address] Dr. Tasha Dodson Protein [Mass/Vol] 7.5 g/dL Normal 6.4-8.2 [facility] Comment on above: Performed By: #### C MADM, LIPA, BNP, CMP #### [facility] [address] [place] [address] Dr. Tasha Dodson FREE T4on 07-28-2021 Free T4 [Mass/Vol] 1.32 ng/dL Normal 0.76-1.46 [facility] Comment on above: Performed By: #### T SH, BMP #### [facility] [address] [place] [address] Dr. Tasha Dodson PROF CHEM 8 (BAS METB)on Anion gap [Moles/Vol] 11.6 mmol/L Normal [facility] Comment on above: Performed By: #### B MP, TSH #### [facility] [address] [place] [address] Dr. Tasha Dodson Calcium [Mass/Vol] 9.4 mg/dL Normal 8.5-10.1 [facility] Comment on above: Performed By: #### B MP, TSH #### [facility] [address] [place] [address] Dr. Tasha Dodson Chloride [Moles/Vol] 93 mmol/L Critically low 98-107 [facility] Comment on above: Performed By: #### B MP, TSH #### [facility] [address] [place] [address] Dr. Tasha Dodson CO2 [Moles/Vol] 29.8 mmol/L Normal 21.0-32.0 [facility] Comment on above: Performed By: #### B MP, TSH #### [facility] [address] [address] [address] Tasha Dodson Creatinine [Mass/Vol] 0.74 mg/dL Normal 0.55-1.02 [facility] Comment on above: Performed By: #### B MP, TSH #### [facility] [address] [address] [address] Tasha Dodson EGFR-AF PORTUGUESE >60 Normal >=[address] [facility] Comment on above: Performed By: #### B MP, TSH #### [facility] [address] [address] [address] Tasha Dodson EGFR-NON AF [place]UESE >60 Normal >=60 [facility] Comment on above: Performed By: #### B MP, TSH #### [facility] [address] [address] [address] Tasha Dodson Glucose [Mass/Vol] 114 mg/dL Critically high 74-106 [facility] Comment on above: Performed By: #### B MP, TSH #### [facility] [address] [address] [address] Tasha Dodson Potassium [Moles/Vol] 3.4 mmol/L Critically low 3.5-5.1 [facility] Comment on above: Performed By: #### B MP, TSH #### [facility] [address] [address] [address] Tasha Dodson Sodium [Moles/Vol] 131 mmol/L Critically low 136-145 [facility] Comment on above: Performed By: #### B MP, TSH #### [facility] [address] [address] [address] Tasha Dodson Urea nitrogen [Mass/Vol] 12.0 mg/dL Normal 7.0-18.0 [facility] Comment on above: Performed By: #### B MP, TSH #### [facility] [address] [address] [address] Tasha Dodson Urea nitrogen/Creatinine [Mass ratio] 16.2 mg/mg Normal [facility] Comment on above: Performed By: #### B MP, TSH #### [facility] [address] [address] [address] Tasha Dodson TSHon 07-28-2021 TSH 1.790 uIU/mL Normal 0.358-3.740 [facility] Comment on above: Performed By: #### B MP, TSH #### [facility] [address] [address] [address] Tasha Dodson TSH RANGE SEE BELOW Normal [facility] Comment on above: Result Comment: <0.3 4 UIU/ml HYPERTHYROID 0.34-5.60 UIU/ml EUTHYROID >5.60 UIU/ml HYPOTHYROID Performed By: #### B MP, TSH #### [facility] [address] [address] [address] Tasha Dodson CBC Auto Differentialon 10-0 Basophils (Bld) [#/Vol] 0.1 10*3/uL 0 - 0.2 K/u L [place] Basophils/100 WBC (Bld) 1.1 % M [place] Eosinophils (Bld) [#/Vol] 0.2 10*3/uL 0 - 0.7 K/uL [place] Eosinophils/100 WBC (Bld) 1.4 % [place] Erythrocyte distribution width (RBC) [Ratio] 14.4 % 11.5 - 14.5 % [place] Hematocrit (Bld) [Volume fraction] 33.6 % Low 37 - 47 % [place] Hemoglobin (Bld) [Mass/Vol] 11.1 g/dL Low 12 - 16 g/dL [place] Interpretation and review of laboratory results Abnormal [place] Lymphocytes (Bld) [#/Vol] 2.3 10*3/uL 1 - 4.8 K/uL [place] Lymphocytes/100 WBC (Bld) 18.0 % [place] MCH (RBC) [Entitic mass] 29.5 pg 27 - 31.3 p g [place] MCHC (RBC) [Mass/Vol] 33.0 % 33 - 37 % [place], [place] MCV (RBC) [Entitic vol] 89.5 fL 82 - 100 fL [place] Monocytes (Bld) [#/Vol] 0.9 10*3/uL High 0.2 - 0.8 K/uL [place] Monocytes/100 WBC (Bld) 6.9 % [place] Neutrophils Absolute 9.1 K/uL High 1.4 - 6 .5 K/uL [place] Neutrophils/100 WBC (Bld) 72.6 % [place] Platelets (Bld) [#/Vol] 548 10*3/uL High 130 - 400 K/uL [place] RBC (Bld) [#/Vol] 3.75 10*6/uL Low [place] WBC (Bld) [#/Vol] 12.5 10*3/uL High 4.8 - 10.8 K/uL [place] CBC With Platelet and Differ entialon 11-20-2018 Basophils (Bld) [#/Vol] 0.1 10*3/uL Normal 0.0-0.2 [facility] Comment on above: Performed By: #### E SR #### [facility] [address] [facility] [address] Basophils/100 WBC (Bld) 1.1 % Normal [facility] Comment on above: Performed By: #### E SR #### [facility] [address] [facility] [address] Eosinophils (Bld) [#/Vol] 0.2 10*3/uL Normal 0.0-0.7 [facility] Comment on above: Performed By: #### E SR #### [facility] [address] [facility] [address] Eosinophils/100 WBC (Bld) 1.4 % Normal [facility] Comment on above: Performed By: #### E SR #### [facility] [address] [facility] [address] Erythrocyte distribution width (RBC) [Ratio] 14.4 % Normal 11.5-14.5 [facility] Comment on above: Performed By: #### E SR #### [facility] [address] [place] [address] Hematocrit (Bld) [Volume fraction] 33.6 % Low 37.0-47.0 [facility] Comment on above: Performed By: #### E SR #### [facility] [address] [place] [address] Hemoglobin (Bld) [Mass/Vol] 11.1 g/dL Low 12.0-16.0 [facility] Comment on above: Performed By: #### E SR #### [facility] [address] [place] [address] Lymphocytes (Bld) [#/Vol] 2.3 10*3/uL Normal 1.0-4.8 [facility] Comment on above: Performed By: #### E SR #### [facility] [address] [place] [address] Lymphocytes/100 WBC (Bld) 18.0 % Normal [facility] Comment on above: Performed By: #### E SR #### [facility] [address] [place] [address] MCH (RBC) [Entitic mass] 29.5 pg Normal 27.0-31.3 [facility] Comment on above: Performed By: #### E SR #### [facility] [address] [place] [address] MCHC (RBC) [Mass/Vol] 33.0 % Normal 33.0-37.0 [facility] Comment on above: Performed By: #### E SR #### [facility] [address] [place] [address] MCV (RBC) [Entitic vol] 89.5 fL Normal 82.0-100.0 [facility] Comment on above: Performed By: #### E SR #### [facility] [address] [place] [address] Monocytes (Bld) [#/Vol] 0.9 10*3/uL Critically high 0.2-0. 8 [facility] Comment on above: Performed By: #### E SR #### [facility] [address] [place] [address] Monocytes/100 WBC (Bld) 6.9 % Normal [facility] Comment on above: Performed By: #### E SR #### [facility] [address] [place] [address] Neutrophils (Bld) [#/Vol] 9.1 10*3/uL Critically high 1.4-6.5 [facility] Comment on above: Performed By: #### E SR #### [facility] [address] [place] [address] Neutrophils/100 WBC (Bld) 72.6 % Normal [facility] Comment on above: Performed By: #### E SR #### [facility] [address] [place] [address] Platelets (Bld) [#/Vol] 548 10*3/uL Critically high 130-40 0 [facility] Comment on above: Performed By: #### E SR #### [facility] [address] [place] [address] RBC (Bld) [#/Vol] 3.75 10*6/uL Low 4.20-5.40 [facility] Comment on above: Performed By: #### E SR #### [facility] [address] [place] [address] WBC (Bld) [#/Vol] 12.5 10*3/uL Critically high 4.8-10.8 [facility] Comment on above: Performed By: #### E SR #### [facility] [address] [place] [address] EKG 12 Leadon 11-20-2018 Atrial Rate 79 BPM [facility], [place] P Oxbow 58 degrees [facility], [place] P-R Interval 176 ms [place] Q-T Interval 404 ms [place] QRS Duration 130 ms [place] QTc Calculation (Bazett) 463 ms [place] R Oxbow -11 degrees [facility], [place] T Oxbow 5 degrees [place] Urea nitrogen [Mass/Vol] Normal sinus rh ythm Right bundle branch block Moderate voltage criteria for LVH, may be normal variant Abnormal ECG When compared with ECG of 13-NOV-2018 08:33, No significant change was found Confirmed by Анна Zamarripa ([id number]) on 11/20/2018 9:39:56 AM [place] Ventricular Rate 79 BPM [place], [place] Joseph, Chpo Incoming Results From [place] - 11/20/2018 9:40 AM EDT Normal sinus rhythm Right bundle branch block Moderate voltage criteria for LVH, may be normal variant Abnormal ECG When compared with ECG of 13-NOV-2018 08:33, No significant change was found Confirmed by Анна Zamarripa ([id number]) on 11/20/2018 9:39:56 AM [place] CBC Auto Differentialon 10-23 Neutrophils Absolute 6.1 K/uL 1.4 - 6 .5 K/uL [place] CBC With Platelet and Differ entialon 11-19-2018 Basophils (Bld) [#/Vol] 0.2 10*3/uL Normal 0.0-0.2 [place] Comment on above: Performed By: #### C MP #### [facility] [address] [place] [address] Basophils/100 WBC (Bld) 1.5 % Normal M [place] Comment on above: Performed By: #### C MP #### [facility] [address] [place] [address] Eosinophils (Bld) [#/Vol] 0.3 10*3/uL Normal 0.0-0.7 [place] Comment on above: Performed By: #### C MP #### [facility] [address] [place] [address] Eosinophils/100 WBC (Bld) 2.5 % Normal [place] Comment on above: Performed By: #### C MP #### [facility] [address] [place] [address] Erythrocyte distribution width (RBC) [Ratio] 14.1 % Normal 11.5-14.5 [place] Comment on above: Performed By: #### C MP #### [facility] [address] [place] [address] Hematocrit (Bld) [Volume fraction] 29.3 % Low 37.0-47.0 [place] Comment on above: Performed By: #### C MP #### [facility] [address] [place] [address] Hemoglobin (Bld) [Mass/Vol] 10.1 g/dL Low 12.0-16.0 [place] Comment on above: Performed By: #### C MP #### [facility] [address] [place] [address] Lymphocytes (Bld) [#/Vol] 2.8 10*3/uL Normal 1.0-4.8 [place] Comment on above: Performed By: #### C MP #### [facility] [address] [address] Lymphocytes/100 WBC (Bld) 27.3 % Normal [place] Comment on above: Performed By: #### C MP #### [facility] [address] [place] [address] MCH (RBC) [Entitic mass] 30.7 pg Normal 27.0-31.3 [place] Comment on above: Performed By: #### C MP #### [facility] [address] [place] [address] MCHC (RBC) [Mass/Vol] 34.6 % Normal 33.0-37.0 [place] Comment on above: Performed By: #### C MP #### [facility] [address] [place] [address] MCV (RBC) [Entitic vol] 88.9 fL Normal 82.0-100.0 [place] Comment on above: Performed By: #### C MP #### [facility] [address] [place] [address] Monocytes (Bld) [#/Vol] 0.9 10*3/uL Critically high 0.2-0. 8 [place] Comment on above: Performed By: #### C MP #### [facility] [address] [place] [address] Monocytes/100 WBC (Bld) 9.2 % Normal [place] Comment on above: Performed By: #### C MP #### [facility] [address] [place] [address] Neutrophils (Bld) [#/Vol] 6.1 10*3/uL Normal 1.4-6.5 [facility] Comment on above: Performed By: #### C MP #### [facility] [address] [place] [address] Neutrophils/100 WBC (Bld) 59.5 % Normal [place] Comment on above: Performed By: #### C MP #### [facility] [address] [place] [address] Platelets (Bld) [#/Vol] 396 10*3/uL Normal 130-400 [place] Comment on above: Performed By: #### C MP #### [facility] [address] [place] [address] RBC (Bld) [#/Vol] 3.30 10*6/uL Low 4.20-5.40 [place] Comment on above: Performed By: #### C MP #### [facility] [address] [place] [address] WBC (Bld) [#/Vol] 10.2 10*3/uL Normal 4.8-10.8 [place] Comment on above: Performed By: #### C MP #### [facility] [address] [place] [address] High Sensitivity CRPon 11-19 High Sensitivity CRP 89.2 mg/L Critically high 0.0-5.0 [facility] Comment on above: Performed By: #### E SR #### [facility] [address] [place] [address] High sensitivity CRPon 11-19 CRP High Sensitivity 89.2 mg/L High 0 - 5 mg/L [place] Interpretation and review of laboratory results Abnormal [place] Otheron 11-19-2018 Interpretation and review of laboratory results Abnormal [place] Sedimentation Rateon 019 Sedimentation Rate 55 mm Critically high 0-30 [facility] Comment on above: Performed By: #### C MP #### [facility] [address] [place] [address] Sed Rate 55 mm High 0 - 30 mm [place] Basic Metabolic Panelon 10-22 Anion gap [Moles/Vol] 14 mmol/L Normal 9-15 [facility] Comment on above: Performed By: #### C MP #### [facility] [address] [place] [address] Calcium [Mass/Vol] 8.8 mg/dL Normal 8.5-9.9 [facility] Comment on above: Performed By: #### C MP #### [facility] [address] [place] [address] Chloride [Moles/Vol] 95 mmol/L Normal 95-107 [facility] Comment on above: Performed By: #### C MP #### [facility] [address] [place] [address] CO2 [Moles/Vol] 26 mmol/L Normal 20-31 [facility] Comment on above: Performed By: #### C MP #### [facility] [address] [place] [address] Creatinine [Mass/Vol] 0.58 mg/dL Normal 0.50-0.90 [facility] Comment on above: Performed By: #### C MP #### [facility] [address] [place] [address] GFR/1.73 sq M predicted among blacks MDRD (S/P/Bld) [Vol rate/Area] mL/min/{1.73_m2} Normal >60 [facility] Comment on above: Result Comment: >60 mL/min/1.73m2 EGFR, calc. for ages 18 and older using the MDRD formula (not corrected for weight), is valid for stable renal function. Performed By: #### C MP #### [facility] [address] [place] [address] GFR/1.73 sq M.predicted MDRD (S/P/Bld) [Vol rate/Area] mL/min/{1.73_m2} Normal >60 [facility] Comment on above: Result Comment: >60 mL/min/1.73m2 EGFR, calc. for ages 18 and older using the MDRD formula (not corrected for weight), is valid for stable renal function. Performed By: #### C MP #### [facility] [address] [place] [address] Glucose [Mass/Vol] 156 mg/dL Critically high 70-99 [facility] Comment on above: Performed By: #### C MP #### [facility] [address] [place] [address] Potassium [Moles/Vol] 3.3 mmol/L Low 3.4-4.9 [facility] Comment on above: Performed By: #### C MP #### [facility] [address] [place] [address] Sodium [Moles/Vol] 135 mmol/L Normal 135-144 [facility] Comment on above: Performed By: #### C MP #### [facility] [address] [place] [address] Urea nitrogen [Mass/Vol] 11 mg/dL Normal 8-23 [facility] Comment on above: Performed By: #### C MP #### [facility] [address] [place] [address] Anion gap [Moles/Vol] 14 mmol/L [place] Calcium [Mass/Vol] 8.8 mg/dL 8.5 - 9.9 mg/dL [place] Chloride [Moles/Vol] 95 mmol/L [place] CO2 [Moles/Vol] 26 mmol/L [place], [place] Creatinine [Mass/Vol] 0.58 mg/dL 0.5 - 0.9 mg/dL [place] GFR >60.0 >60 [place] Comment on above: >60 mL/min/1.73m2 EG FR, calc. for ages 18 and older using the MDRD formula (not corrected for weight), is valid for stable renal function. GFR Non- >60.0 >60 [place] Comment on above: >60 mL/min/1.73m2 EG FR, calc. for ages 18 and older using the MDRD formula (not corrected for weight), is valid for stable renal function. Glucose [Mass/Vol] 156 mg/dL High 70 - 99 mg/dL [place] Interpretation and review of laboratory results Abnormal [place] Potassium [Moles/Vol] 3.3 mmol/L [place] Sodium [Moles/Vol] 135 mmol/L [place] Urea nitrogen [Mass/Vol] 11 mg/dL 8 - 23 mg/d L [place] Magnesiumon 11-18-2018 Magnesium [Mass/Vol] 1.8 mg/dL Normal 1.7-2.4 [facility] Comment on above: Performed By: #### C MP #### [facility] [address] [facility] [address] Magnesium [Mass/Vol] 1.8 mg/dL 1.7 - 2 .4 mg/dL [place] TSH w/out Reflexon 9 TSH Qn 0.880 uIU/mL Normal 0.440-3.86 [facility] Comment on above: Performed By: #### C MP #### [facility] [address] [place] [address] TSH without Reflexon 019 TSH Qn 0.880 m[IU]/L [place], [place] CBC Auto Differentialon 10-22 Basophils (Bld) [#/Vol] 0.1 10*3/uL 0 - 0.2 K/u L [place] Basophils/100 WBC (Bld) 0.7 % [place] Eosinophils (Bld) [#/Vol] 0.4 10*3/uL 0 - 0.7 K/uL [place] Eosinophils/100 WBC (Bld) 2.8 % [place] Erythrocyte distribution width (RBC) [Ratio] 14.2 % 11.5 - 14.5 % [place] Hematocrit (Bld) [Volume fraction] 32.3 % Low 37 - 47 % [place] Hemoglobin (Bld) [Mass/Vol] 10.8 g/dL Low 12 - 16 g/dL [place] Interpretation and review of laboratory results Abnormal [place] Lymphocytes (Bld) [#/Vol] 2.6 10*3/uL 1 - 4.8 K/uL [place] Lymphocytes/100 WBC (Bld) 16.8 % [place] MCH (RBC) [Entitic mass] 30.3 pg 27 - 31.3 p g [place] MCHC (RBC) [Mass/Vol] 33.4 % 33 - 37 % [place] MCV (RBC) [Entitic vol] 90.5 fL 82 - 100 fL [place] Monocytes (Bld) [#/Vol] 1.3 10*3/uL High 0.2 - 0.8 K/uL [place] Monocytes/100 WBC (Bld) 8.3 % [place] Neutrophils Absolute 11.1 K/uL High 1.4 - 6 .5 K/uL [place] Neutrophils/100 WBC (Bld) 71.4 % [place] Platelets (Bld) [#/Vol] 375 10*3/uL 130 - 400 K/uL [place] RBC (Bld) [#/Vol] 3.57 10*6/uL Low [place] WBC (Bld) [#/Vol] 15.5 10*3/uL High 4.8 - 10.8 K/uL [place] CBC With Platelet and Differ entialon 11-17-2018 Basophils (Bld) [#/Vol] 0.1 10*3/uL Normal 0.0-0.2 [facility] Comment on above: Performed By: #### C MP #### [facility] [address] [place] [address] Basophils/100 WBC (Bld) 0.7 % Normal [facility] Comment on above: Performed By: #### C MP #### [facility] [address] [place] [address] Eosinophils (Bld) [#/Vol] 0.4 10*3/uL Normal 0.0-0.7 [facility] Comment on above: Performed By: #### C MP #### [facility] [address] [place] [address] Eosinophils/100 WBC (Bld) 2.8 % Normal [facility] Comment on above: Performed By: #### C MP #### [facility] [address] [place] [address] Erythrocyte distribution width (RBC) [Ratio] 14.2 % Normal 11.5-14.5 [facility] Comment on above: Performed By: #### C MP #### [facility] [address] [place] [address] Hematocrit (Bld) [Volume fraction] 32.3 % Low 37.0-47.0 [facility] Comment on above: Performed By: #### C MP #### [facility] [address] [place] [address] Hemoglobin (Bld) [Mass/Vol] 10.8 g/dL Low 12.0-16.0 [facility] Comment on above: Performed By: #### C MP #### [facility] [address] [place] [address] Lymphocytes (Bld) [#/Vol] 2.6 10*3/uL Normal 1.0-4.8 [facility] Comment on above: Performed By: #### C MP #### [facility] [address] [place] [address] Lymphocytes/100 WBC (Bld) 16.8 % Normal [facility] Comment on above: Performed By: #### C MP #### [facility] [address] [place] [address] MCH (RBC) [Entitic mass] 30.3 pg Normal 27.0-31.3 [facility] Comment on above: Performed By: #### C MP #### [facility] [address] [place] [address] MCHC (RBC) [Mass/Vol] 33.4 % Normal 33.0-37.0 [facility] Comment on above: Performed By: #### C MP #### [facility] [address] [place] [address] MCV (RBC) [Entitic vol] 90.5 fL Normal 82.0-100.0 [facility] Comment on above: Performed By: #### C MP #### [facility] [address] [place] [address] Monocytes (Bld) [#/Vol] 1.3 10*3/uL Critically high 0.2-0. 8 [facility] Comment on above: Performed By: #### C MP #### [facility] [address] [place] [address] Monocytes/100 WBC (Bld) 8.3 % Normal [facility] Comment on above: Performed By: #### C MP #### [facility] [address] [place] [address] Neutrophils (Bld) [#/Vol] 11.1 10*3/uL Critically high 1.4-6.5 [facility] Comment on above: Performed By: #### C MP #### [facility] [address] [place] [address] Neutrophils/100 WBC (Bld) 71.4 % Normal [facility] Comment on above: Performed By: #### C MP #### [facility] [address] [place] [address] Platelets (Bld) [#/Vol] 375 10*3/uL Normal 130-400 [facility] Comment on above: Performed By: #### C MP #### [facility] [address] [place] [address] RBC (Bld) [#/Vol] 3.57 10*6/uL Low 4.20-5.40 [facility] Comment on above: Performed By: #### C MP #### [facility] [address] [place] [address] WBC (Bld) [#/Vol] 15.5 10*3/uL Critically high 4.8-10.8 [facility] Comment on above: Performed By: #### C MP #### [facility] [address] [place] [address] High Sensitivity CRPon 11-17 High Sensitivity CRP 230.1 mg/L Critically high 0.0-5.0 [facility] Comment on above: Performed By: #### C MP #### [facility] [address] [place] [address] High sensitivity CRPon 11-17 CRP High Sensitivity 230.1 mg/L High 0 - 5 mg/L [facility], [place] Interpretation and review of laboratory results Abnormal [facility], [place] Sedimentation Rateon 019 Sedimentation Rate 50 mm Critically high 0-30 [facility] Comment on above: Performed By: #### C MP #### [facility] [address] [facility] [id number] [phone] Interpretation and review of laboratory results Abnormal [place] Sed Rate 50 mm High 0 - 30 mm [place] US DUP LOWER EXTREMITIES VAUGHN ATERAL VENOUSon 11-17-2018 NO DVT IDENTIFIED IN EITHER LOWER EXTREMITY. [place] Joseph, Chpo Incoming Radiant Results From [employer] - 11/17/2018 8:05 AM EDT US DUP [...] NO DVT IDENTIFIED IN EITHER LOWER EXTREMITY. [place] US DUP LOWER EXTREMITIES BILATERAL VENOUS : 11/16/2018 CLINICAL HISTORY: LEG SWELLING, PAIN, DVT SUSPECTED . COMPARISON: None available. Grayscale, compression, color and waveform Doppler analysis of both lower extremity deep venous systems was performed with augmentation. FINDINGS: There is no deep venous thrombosis, abnormal masses, fluid collections or other findings of concern identified within either lower extremity. [place] Urine Cultureon 11-17-2018 Bacteria identified Cx Nom (U) No growth 24 hours [place], [place] ORDERED BY: ADDY COKER SOURCE: Urine Clean Catch COLLECTED: 11/15/18 19:05 ANTIBIOTICS AT DI.: RECEIVED : 11/15/18 19:05 [place] CBC With Platelet and Differ entialon 11-16-2018 Neutrophils (Bld) [#/Vol] 15.5 10*3/uL Critically high 1.4-6.5 [facility] Comment on above: Performed By: #### P TT #### [facility] [address] [facility] [address] Basophils (Bld) [#/Vol] 0.2 10*3/uL Normal 0.0-0.2 [place] Comment on above: Performed By: #### P TT #### [facility] [address] [place] [address] Basophils/100 WBC (Bld) 0.9 % Normal [place] Comment on above: Performed By: #### P TT #### [facility] [address] [place] [address] Eosinophils (Bld) [#/Vol] 0.1 10*3/uL Normal 0.0-0.7 [place] Comment on above: Performed By: #### P TT #### [facility] [address] [place] [address] Eosinophils/100 WBC (Bld) 0.8 % Normal [place] Comment on above: Performed By: #### P TT #### [facility] [address] [facility] [address] Erythrocyte distribution width (RBC) [Ratio] 14.4 % Normal 11.5-14.5 [place] Comment on above: Performed By: #### P TT #### [facility] [address] [facility] [address] Hematocrit (Bld) [Volume fraction] 33.4 % Low 37.0-47.0 [place] Comment on above: Performed By: #### P TT #### [facility] [address] [place] [address] Hemoglobin (Bld) [Mass/Vol] 11.0 g/dL Low 12.0-16.0 [place] Comment on above: Performed By: #### P TT #### [facility] [address] [place] [address] Lymphocytes (Bld) [#/Vol] 1.5 10*3/uL Normal 1.0-4.8 [place] Comment on above: Performed By: #### P TT #### [facility] [address] [place] [address] Lymphocytes/100 WBC (Bld) 7.9 % Normal [place] Comment on above: Performed By: #### P TT #### [facility] [address] [place] [address] MCH (RBC) [Entitic mass] 29.4 pg Normal 27.0-31.3 [place] Comment on above: Performed By: #### P TT #### [facility] [address] [place] [address] MCHC (RBC) [Mass/Vol] 32.9 % Low 33.0-37.0 [place] Comment on above: Performed By: #### P TT #### [facility] [address] [place] [address] MCV (RBC) [Entitic vol] 89.4 fL Normal 82.0-100.0 [place] Comment on above: Performed By: #### P TT #### [facility] [address] [place] [address] Monocytes (Bld) [#/Vol] 1.3 10*3/uL Critically high 0.2-0. 8 [place] Comment on above: Performed By: #### P TT #### [facility] [address] [place] [address] Monocytes/100 WBC (Bld) 7.1 % Normal [place] Comment on above: Performed By: #### P TT #### [facility] [address] [place] [address] Neutrophils/100 WBC (Bld) 83.3 % Normal [place] Comment on above: Performed By: #### P TT #### [facility] [address] [place] [address] Platelets (Bld) [#/Vol] 304 10*3/uL Normal 130-400 [place] Comment on above: Performed By: #### P TT #### [facility] [address] [place] [address] RBC (Bld) [#/Vol] 3.74 10*6/uL Low 4.20-5.40 [place] Comment on above: Performed By: #### P TT #### [facility] [address] [facility] [address] WBC (Bld) [#/Vol] 18.6 10*3/uL Critically high 4.8-10.8 [place] Comment on above: Performed By: #### P TT #### [facility] [address] [facility] [address] CBC auto differentialon 10-22 Interpretation and review of laboratory results Abnormal [place] Neutrophils Absolute 15.5 K/uL High 1.4 - 6 .5 K/uL [place] ECHO Complete 2D W Doppler W Coloron 11-16-2018 Transthoracic Echocardiography Report (TTE) Demographics Patient Name MERCY GANDHI Gender Female Patient Number [id number] Race Unknown Ethnicity Visit Number [id number] Room Number R238 Corporate ID Date of Study 11/16/2018 Referring Physician Niki Vazquez DO Number Date of 1935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 Age 83 year(s) Interpreting [facility] Physician Cardiology Cain Quinonez MD Procedure [...] 2.35 cm LVOT Diameter: 1.65 cm [facility]- [place], [place] Joseph, Chpo Incoming Cardiovascular Results From [facility] - 11/16/2018 5:05 PM EDT Transthoracic Echocardiography Report (TTE) Demographics Patient Name MERCY GANDHI Gender Female Patient Number [id number] Race Unknown Ethnicity Visit Number [id number] Room Number R238 Corporate ID Date of Study 11/16/2018 Referring Physician Niki Vazquez DO Number 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 of 1935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 Bella [facility] Age 83 year(s) Interpreting [facility] Physician Cardiology Cain Quinonez MD Procedure [...] Root: 2.35 cm LVOT Diameter: 1.65 cm [place] Microscopic Urinalysison Bacteria, UA Negative /HPF [place] Epi Cells 3-5 /HPF [place] Interpretation and review of laboratory results Abnormal [place] RBC (U) [#/Vol] 3-5 Abnormal [facility] [place] Renal Epithelial, Urine 0-2 Abnormal /HPF [place] WBC, UA None seen [place] CAROTID ARTERY BILATERALo n 11-16-2018 [...] Damped resistive CCA decreased decreased resistive CCA [place] Joseph, Sarahpo Incoming Radiant Results From [facility] - 11/16/2018 10:40 AM EDT Patient : [...] Damped resistive CCA decreased decreased resistive [facility] 1935 Age: 83 years [...] and noncalcified plaque bilateral carotid arterial systems [facility] DUP LOWER EXTREMITIES VAUGHN ATERAL [...] De Souza MD 11/17/18 Final result Normal [facility] Urine Microscopicon 11-17-19 19 Bacteria LM.HPF (Urine sed) [#/Area] Negative Normal [facility] Comment on above: Performed By: #### P TT #### [facility] [address] [place] [address] Epithelial cells LM Ql (Urine sed) 3-5 Normal [facility] Comment on above: Performed By: #### P TT #### [facility] [address] [place] [address] RBC (U) [#/Vol] 3-5 Abnormal 0-2 [facility] Comment on above: Performed By: #### P TT #### [facility] [address] [place] [address] Urine Renal Epithelial 0-2 Abnormal [facility] Comment on above: Performed By: #### P TT #### [facility] [address] [place] [address] WBC (U) [#/Vol] None seen Normal 0-5 [facility] Comment on above: Performed By: #### P TT #### [facility] [address] [place] [address] XR CHEST PORTABLEon 11-17-19 19 Joseph, Chpo Incoming Radiant Results From [employer] - 11/16/2018 10:21 AM EDT EXAMINATION: XR CHEST PORTABLE CLINICAL HISTORY: fever . History of back surgery. COMPARISONS: None available. FINDINGS: Single AP portable view the chest obtained on November 15, 2018 at 2124 hours. The heart is not enlarged. Mediastinum is not widened. Calcified aorta is not dilated. Lungs are clear. The chest wall is unremarkable. CONCLUSION: NO ACUTE PROCESS [facility], [place] EXAMINATION: XR CHEST PORTABLE CLINICAL HISTORY: fever . History of back surgery. COMPARISONS: None available. FINDINGS: Single AP portable view the chest obtained on November 15, 2018 at 2124 hours. The heart is not enlarged. Mediastinum is not widened. Calcified aorta is not dilated. Lungs are clear. The chest wall is unremarkable. CONCLUSION: NO ACUTE PROCESS [place] CBC Auto Differentialon 10-22 Anisocytosis Ql (Bld) 1+ [place] Bands Relative 4 % Low 5 - 11 % [place] Basophils (Bld) [#/Vol] 0.0 10*3/uL 0 - 0.2 K/u L [place] Basophils/100 WBC (Bld) 0.6 % [place] Eosinophils (Bld) [#/Vol] 0.0 10*3/uL 0 - 0.7 K/uL [place] Eosinophils/100 WBC (Bld) 0.9 % [place] Erythrocyte distribution width (RBC) [Ratio] 14.6 % High 11.5 - 14.5 % [place] Hematocrit (Bld) [Volume fraction] 33.3 % Low 37 - 47 % [place] Hemoglobin (Bld) [Mass/Vol] 10.9 g/dL Low 12 - 16 g/dL [place] Interpretation and review of laboratory results Abnormal [place] Lymphocytes (Bld) [#/Vol] 3.5 10*3/uL 1 - 4.8 K/uL [place] Lymphocytes/100 WBC (Bld) 17.0 % [place] MCH (RBC) [Entitic mass] 29.8 pg 27 - 31.3 p g [place] MCHC (RBC) [Mass/Vol] 32.9 % Low 33 - 37 % [place] MCV (RBC) [Entitic vol] 90.7 fL 82 - 100 fL [place] Microcytes 1+ [place] Monocytes (Bld) [#/Vol] 0.0 10*3/uL Low 0.2 - 0.8 K/uL [place] Monocytes/100 WBC (Bld) 7.7 % [place] Neutrophils Absolute 17.3 K/uL High 1.4 - 6 .5 K/uL [place] Neutrophils/100 WBC (Bld) 79.0 % [place] PLATELET SLIDE REVIEW Normal [place] Platelets (Bld) [#/Vol] 315 10*3/uL 130 - 400 K/uL [place] RBC (Bld) [#/Vol] 3.67 10*6/uL Low [place] WBC (Bld) [#/Vol] 20.8 10*3/uL High 4.8 - 10.8 K/uL [place] CBC With Platelet No Differe ntialon 11-15-2018 Erythrocyte distribution width (RBC) [Ratio] 14.5 % Normal 11.5-14.5 [facility] Comment on above: Performed By: #### P TT #### [facility] [address] [place] [address] Hematocrit (Bld) [Volume fraction] 36.9 % Low 37.0-47.0 [facility] Comment on above: Performed By: #### P TT #### [facility] [address] [place] [address] Hemoglobin (Bld) [Mass/Vol] 11.9 g/dL Low 12.0-16.0 [facility] Comment on above: Performed By: #### P TT #### [facility] [address] [place] [address] MCH (RBC) [Entitic mass] 29.4 pg Normal 27.0-31.3 [facility] Comment on above: Performed By: #### P TT #### [facility] [address] [place] [address] MCHC (RBC) [Mass/Vol] 32.3 % Low 33.0-37.0 [facility] Comment on above: Performed By: #### P TT #### [facility] [address] [place] [address] MCV (RBC) [Entitic vol] 91.1 fL Normal 82.0-100.0 [facility] Comment on above: Performed By: #### P TT #### [facility] [address] [place] [address] Platelets (Bld) [#/Vol] 341 10*3/uL Normal 130-400 [facility] Comment on above: Performed By: #### P TT #### [facility] [address] [place] [address] RBC (Bld) [#/Vol] 4.05 10*6/uL Low 4.20-5.40 [facility] Comment on above: Performed By: #### P TT #### [facility] [address] [place] [address] WBC (Bld) [#/Vol] 19.8 10*3/uL Critically high 4.8-10.8 [facility] Comment on above: Performed By: #### P TT #### [facility] [address] [place] [address] CBC With Platelet and Differ entialon 11-15-2018 Anisocytosis Ql (Bld) 1+ Normal [facility] Comment on above: Performed By: #### P TT #### [facility] [address] [place] [address] Bands 4 % Low 5-11 [facility] Comment on above: Performed By: #### P TT #### [facility] [address] [place] [address] Basophils (Bld) [#/Vol] 0.0 10*3/uL Normal 0.0-0.2 [facility] Comment on above: Performed By: #### P TT #### [facility] [address] [place] [address] Basophils/100 WBC (Bld) 0.6 % Normal [facility] Comment on above: Performed By: #### P TT #### [facility] [address] [place] [address] Eosinophils (Bld) [#/Vol] 0.0 10*3/uL Normal 0.0-0.7 [facility] Comment on above: Performed By: #### P TT #### [facility] [address] [place] [address] Eosinophils/100 WBC (Bld) 0.9 % Normal [facility] Comment on above: Performed By: #### P TT #### [facility] [address] [place] [address] Lymphocytes (Bld) [#/Vol] 3.5 10*3/uL Normal 1.0-4.8 [facility] Comment on above: Performed By: #### P TT #### [facility] [address] [place] [address] Lymphocytes/100 WBC (Bld) 17.0 % Normal [facility] Comment on above: Performed By: #### P TT #### [facility] [address] [place] [address] Microcytic 1+ Normal [facility] Comment on above: Performed By: #### P TT #### [facility] [address] [place] [address] Monocytes (Bld) [#/Vol] 0.0 10*3/uL Low 0.2-0.8 [facility] Comment on above: Performed By: #### P TT #### [facility] [address] [place] [address] Monocytes/100 WBC (Bld) 7.7 % Normal [facility] Comment on above: Performed By: #### P TT #### [facility] [address] [place] [address] Neutrophils (Bld) [#/Vol] 17.3 10*3/uL Critically high 1.4-6.5 [facility] Comment on above: Performed By: #### P TT #### [facility] [address] [place] [address] Neutrophils/100 WBC (Bld) 79.0 % Normal [facility] Comment on above: Performed By: #### P TT #### [facility] [address] [place] [address] Platelet Slide Review Normal Normal [facility] Comment on above: Performed By: #### P TT #### [facility] [address] [place] [address] Erythrocyte distribution width (RBC) [Ratio] 14.6 % Critically high 11.5-14.5 [facility] Comment on above: Performed By: #### P TT #### [facility] [address] [place] [address] Hematocrit (Bld) [Volume fraction] 33.3 % Low 37.0-47.0 [facility] Comment on above: Performed By: #### P TT #### [facility] [address] [place] [address] Hemoglobin (Bld) [Mass/Vol] 10.9 g/dL Low 12.0-16.0 [facility] Comment on above: Performed By: #### P TT #### [facility] [address] [place] [address] MCH (RBC) [Entitic mass] 29.8 pg Normal 27.0-31.3 [facility] Comment on above: Performed By: #### P TT #### [facility] [address] [place] [address] MCHC (RBC) [Mass/Vol] 32.9 % Low 33.0-37.0 [facility] Comment on above: Performed By: #### P TT #### [facility] [address] [place] [address] MCV (RBC) [Entitic vol] 90.7 fL Normal 82.0-100.0 [facility] Comment on above: Performed By: #### P TT #### [facility] [address] [place] [address] Platelets (Bld) [#/Vol] 315 10*3/uL Normal 130-400 [facility] Comment on above: Performed By: #### P TT #### [facility] [address] [place] [address] RBC (Bld) [#/Vol] 3.67 10*6/uL Low 4.20-5.40 [facility] Comment on above: Performed By: #### P TT #### [facility] [address] [place] [address] WBC (Bld) [#/Vol] 20.8 10*3/uL Critically high 4.8-10.8 [facility] Comment on above: Performed By: #### P TT #### [facility] [address] [place] [address] Comprehensive Metabolic Pane l reflex Mgon 11-15-2018 Albumin [Mass/Vol] 3.3 g/dL Low 3.5-4.6 [facility] Comment on above: Performed By: #### P TT #### [facility] [address] [place] [address] ALP [Catalytic activity/Vol] 71 U/L Normal 40-130 [facility] Comment on above: Performed By: #### P TT #### [facility] [address] [place] [address] ALT [Catalytic activity/Vol] 12 U/L Normal 0-33 [facility] Comment on above: Performed By: #### P TT #### [facility] [address] [place] [address] Anion gap [Moles/Vol] 11 mmol/L Normal 9-15 [facility] Comment on above: Performed By: #### P TT #### [facility] [address] [place] [address] AST [Catalytic activity/Vol] 28 U/L Normal 0-35 [facility] Comment on above: Performed By: #### P TT #### [facility] [address] [place] [address] Bilirubin [Mass/Vol] 0.4 mg/dL Normal 0.2-0.7 [facility] Comment on above: Performed By: #### P TT #### [facility] [address] [place] [address] Calcium [Mass/Vol] 9.1 mg/dL Normal 8.5-9.9 [facility] Comment on above: Performed By: #### P TT #### [facility] [address] [place] [address] Chloride [Moles/Vol] 98 mmol/L Normal 95-107 [facility] Comment on above: Performed By: #### P TT #### [facility] [address] [place] [address] CO2 [Moles/Vol] 27 mmol/L Normal 20-31 [facility] Comment on above: Performed By: #### P TT #### [facility] [address] [place] [address] Creatinine [Mass/Vol] 0.59 mg/dL Normal 0.50-0.90 [facility] Comment on above: Performed By: #### P TT #### [facility] [address] [place] [address] GFR/1.73 sq M predicted among blacks MDRD (S/P/Bld) [Vol rate/Area] mL/min/{1.73_m2} Normal >60 [facility] Comment on above: Result Comment: >60 mL/min/1.73m2 EGFR, calc. for ages 18 and older using the MDRD formula (not corrected for weight), is valid for stable renal function. Performed By: #### P TT #### [facility] [address] [place] [address] GFR/1.73 sq M.predicted MDRD (S/P/Bld) [Vol rate/Area] mL/min/{1.73_m2} Normal >60 [facility] Comment on above: Result Comment: >60 mL/min/1.73m2 EGFR, calc. for ages 18 and older using the MDRD formula (not corrected for weight), is valid for stable renal function. Performed By: #### P TT #### [facility] [address] [place] [address] Globulin (S) [Mass/Vol] 3.2 g/dL Normal 2.3-3.5 [facility] Comment on above: Performed By: #### P TT #### [facility] [address] [place] [address] Glucose [Mass/Vol] 123 mg/dL Critically high 70-99 [facility] Comment on above: Performed By: #### P TT #### [facility] [address] [place] [address] Potassium reflex Mg 3.8 mEq/L Normal 3.4-4.9 [facility] Comment on above: Performed By: #### P TT #### [facility] [address] [place] [address] Protein [Mass/Vol] 6.5 g/dL Normal 6.3-8.0 [facility] Comment on above: Performed By: #### P TT #### [facility] [address] [place] [address] Sodium [Moles/Vol] 136 mmol/L Normal 135-144 [facility] Comment on above: Performed By: #### P TT #### [facility] [address] [place] [address] Urea nitrogen [Mass/Vol] 6 mg/dL Low 8-23 [facility] Comment on above: Performed By: #### P TT #### [facility] [address] [place] [address] Culture, Blood 2on 9 Culture, Blood 2 ORDERED BY: ADDY COKER SOURCE: Blood COLLECTED: 11/15/18 16:37 ANTIBIOTICS AT DI.: RECEIVED : 11/15/18 16:42 Culture, Blood 2 FINAL 11/20/18 18:15 No growth after 5 days of incubation. Normal [facility] Comment on above: Performed By: #### C MP #### [facility] [address] [place] [address] Culture, Urineon 11-15-2018 Culture, Urine ORDERED BY: ADDY COKER SOURCE: Urine Clean Catch COLLECTED: 11/15/18 19:05 ANTIBIOTICS AT DI.: RECEIVED : 11/15/18 19:05 Culture, Urine FINAL 11/17/18 07:28 No growth 24 hours Normal [facility] Comment on above: Performed By: #### C MP #### [facility] [address] [place] [address] URINE RT REFLEX TO CULTUREon 11-15-2018 Bilirubin Urine Negative Negative [place] Blood, Urine TRACE Abnormal Negative [place] Clarity, UA Clear Clear [place] Color, UA Yellow Straw/Yellow [place] Glucose, Ur Negative Negative mg/dL [place] Interpretation and review of laboratory results Abnormal [place] Ketones Ql (U) Negative Negative mg/dL [place] Leukocyte esterase Test strip Ql (U) Negative Negative [place] Nitrite, Urine Negative Negative [place] pH, UA 7.0 [place] Protein (U) [Mass/Vol] 30 mg/dL Abnormal Negative [place], [place] Specific Mize, UA 1.014 [place] Urine Reflex to Culture YES M [place] Urobilinogen, Urine 0.2 <2.0 E.U./dL [place] CAROTID ARTERY BILATERALo n 11-15-2018 [...] Mohsen Childers MD 11/16/18 Final result Normal [facility] Urinalysis, reflex to cultur kendall 11-15-2018 Bilirubin Ql (U) Negative Normal Negative [facility] Comment on above: Performed By: #### P TT #### [facility] [address] [place] [address] Clarity (U) Clear Normal Clear [facility] Comment on above: Performed By: #### P TT #### [facility] [address] [place] [address] Color (U) Yellow Normal Straw/Barnes [facility] Comment on above: Performed By: #### P TT #### [facility] [address] [place] [address] Glucose Ql (U) Negative Normal Negative [facility] Comment on above: Performed By: #### P TT #### [facility] [address] [place] [address] Hemoglobin Ql (U) TRACE Abnormal Negative [facility] Comment on above: Performed By: #### P TT #### [facility] [address] [place] [address] Ketones Ql (U) Negative Normal Negative [facility] Comment on above: Performed By: #### P TT #### [facility] [address] [place] [address] Leukocyte esterase Test strip Ql (U) Negative Normal Negative [facility] Comment on above: Performed By: #### P TT #### [facility] [address] [place] [address] Nitrite Ql (U) Negative Normal Negative [facility] Comment on above: Performed By: #### P TT #### [facility] [address] [place] [address] pH (U) 7.0 [pH] Normal 5.0-9.0 [facility] Comment on above: Performed By: #### P TT #### [facility] [address] [place] [address] Protein Ql (U) 30 mg/dL Abnormal Negative [facility] Comment on above: Performed By: #### P TT #### [facility] [address] [place] [address] Specific gravity (U) [Rel density] 1.014 Normal 1.005-1.03 [facility] Comment on above: Performed By: #### P TT #### [facility] [address] [place] [address] Urine Reflexed to Culture YES Normal [facility] Comment on above: Performed By: #### P TT #### [facility] [address] [place] [address] Urobilinogen Qn (U) 0.2 {Juan'U}/dL Normal < 2.0 [facility] Comment on above: Performed By: #### P TT #### [facility] [address] [place] [address] XR CHEST PORTABLEon 11-16-19 XR CHEST PORTABLE [...] Pearl Varghese MD 11/16/18 Final result Normal [facility] Basic Metabolic Panel Reflex Mgon 11-14-2018 Anion gap [Moles/Vol] 10 mmol/L Normal 9-15 [facility] Comment on above: Performed By: #### P T #### [facility] [address] [place] [address] Calcium [Mass/Vol] 8.4 mg/dL Low 8.5-9.9 [facility] Comment on above: Performed By: #### P T #### [facility] [address] [place] [address] Chloride [Moles/Vol] 100 mmol/L Normal 95-107 [facility] Comment on above: Performed By: #### P T #### [facility] [address] [place] [address] CO2 [Moles/Vol] 25 mmol/L Normal 20-31 [facility] Comment on above: Performed By: #### P T #### [facility] [address] [place] [address] Creatinine [Mass/Vol] 0.66 mg/dL Normal 0.50-0.90 [facility] Comment on above: Performed By: #### P T #### [facility] [address] [place] [address] GFR/1.73 sq M predicted among blacks MDRD (S/P/Bld) [Vol rate/Area] mL/min/{1.73_m2} Normal >60 [facility] Comment on above: Result Comment: >60 mL/min/1.73m2 EGFR, calc. for ages 18 and older using the MDRD formula (not corrected for weight), is valid for stable renal function. Performed By: #### P T #### [facility] [address] [place] [address] GFR/1.73 sq M.predicted MDRD (S/P/Bld) [Vol rate/Area] mL/min/{1.73_m2} Normal >60 [facility] Comment on above: Result Comment: >60 mL/min/1.73m2 EGFR, calc. for ages 18 and older using the MDRD formula (not corrected for weight), is valid for stable renal function. Performed By: #### P T #### [facility] [address] [place] [address] Glucose [Mass/Vol] 144 mg/dL Critically high 70-99 [facility] Comment on above: Performed By: #### P T #### [facility] [address] [place] [address] Potassium reflex Mg 4.1 mEq/L Normal 3.4-4.9 [facility] Comment on above: Performed By: #### P T #### [facility] [address] [place] [address] Sodium [Moles/Vol] 135 mmol/L Normal 135-144 [facility] Comment on above: Performed By: #### P T #### [facility] [address] [place] [address] Urea nitrogen [Mass/Vol] 6 mg/dL Low 8-23 [facility] Comment on above: Performed By: #### P T #### [facility] [address] [place] [address] CBC With Platelet and Differ entialon 11-14-2018 Basophils (Bld) [#/Vol] 0.1 10*3/uL Normal 0.0-0.2 [facility] Comment on above: Performed By: #### P T #### [facility] [address] [place] [address] Basophils/100 WBC (Bld) 0.5 % Normal [facility] Comment on above: Performed By: #### P T #### [facility] [address] [place] [address] Eosinophils (Bld) [#/Vol] 0.1 10*3/uL Normal 0.0-0.7 [facility] Comment on above: Performed By: #### P T #### [facility] [address] [place] [address] Eosinophils/100 WBC (Bld) 0.8 % Normal [facility] Comment on above: Performed By: #### P T #### [facility] [address] [place] [address] Erythrocyte distribution width (RBC) [Ratio] 14.1 % Normal 11.5-14.5 [facility] Comment on above: Performed By: #### P T #### [facility] [address] [place] [address] Hematocrit (Bld) [Volume fraction] 35.4 % Low 37.0-47.0 [facility] Comment on above: Performed By: #### P T #### [facility] [address] [place] [address] Hemoglobin (Bld) [Mass/Vol] 11.7 g/dL Low 12.0-16.0 [facility] Comment on above: Performed By: #### P T #### [facility] [address] [place] [address] Lymphocytes (Bld) [#/Vol] 2.7 10*3/uL Normal 1.0-4.8 [facility] Comment on above: Performed By: #### P T #### [facility] [address] [place] [place] [address] Lymphocytes/100 WBC (Bld) 15.7 % Normal [facility] Comment on above: Performed By: #### P T #### [facility] [address] [place] [address] MCH (RBC) [Entitic mass] 29.7 pg Normal 27.0-31.3 [facility] Comment on above: Performed By: #### P T #### [facility] [address] [place] [address] MCHC (RBC) [Mass/Vol] 33.1 % Normal 33.0-37.0 [facility] Comment on above: Performed By: #### P T #### [facility] [address] [place] [address] MCV (RBC) [Entitic vol] 89.6 fL Normal 82.0-100.0 [facility] Comment on above: Performed By: #### P T #### [facility] [address] [place] [place] [address] Monocytes (Bld) [#/Vol] 1.4 10*3/uL Critically high 0.2-0. 8 [facility] Comment on above: Performed By: #### P T #### [facility] [address] [place] [address] Monocytes/100 WBC (Bld) 7.9 % Normal [facility] Comment on above: Performed By: #### P T #### [facility] [address] [place] [address] Neutrophils (Bld) [#/Vol] 12.8 10*3/uL Critically high 1.4-6.5 [facility] Comment on above: Performed By: #### P T #### [facility] [address] [place] [address] Neutrophils/100 WBC (Bld) 75.1 % Normal [facility] Comment on above: Performed By: #### P T #### [facility] [address] [place] [address] Platelets (Bld) [#/Vol] 345 10*3/uL Normal 130-400 [facility] Comment on above: Performed By: #### P T #### [facility] [address] [place] [address] RBC (Bld) [#/Vol] 3.95 10*6/uL Low 4.20-5.40 [facility] Comment on above: Performed By: #### P T #### [facility] [address] [place] [address] WBC (Bld) [#/Vol] 17.0 10*3/uL Critically high 4.8-10.8 [facility] Comment on above: Performed By: #### P T #### [facility] [address] [place] [address] POCT Glucoseon 11-14-2018 Glucose [Mass/Vol] 116 mg/dL Critically high 60-115 [facility] Comment on above: Performed By: #### P T #### [facility] [address] [place] [place] [address] POC Performed on ACCU-CHEK Normal [facility] Comment on above: Performed By: #### P T #### [facility] [address] [place] [address] XR LUMBAR SPINE (2-3 VIEWS)o n 11-14-2018 [...] Mohsen Childers MD 11/14/18 Final result Normal [facility] Basic Metabolic Panel Reflex Mgon 11-13-2018 Anion gap [Moles/Vol] 13 mmol/L Normal 9-15 [facility] Comment on above: Performed By: #### P T #### [facility] [address] [place] [address] Calcium [Mass/Vol] 9.0 mg/dL Normal 8.5-9.9 [facility] Comment on above: Performed By: #### P T #### [facility] [address] [place] [address] Chloride [Moles/Vol] 101 mmol/L Normal 95-107 [facility] Comment on above: Performed By: #### P T #### [facility] [address] [place] [address] CO2 [Moles/Vol] 24 mmol/L Normal 20-31 [facility] Comment on above: Performed By: #### P T #### [facility] [address] [place] [address] Creatinine [Mass/Vol] 0.62 mg/dL Normal 0.50-0.90 [facility] Comment on above: Performed By: #### P T #### [facility] [address] [place] [address] GFR/1.73 sq M predicted among blacks MDRD (S/P/Bld) [Vol rate/Area] mL/min/{1.73_m2} Normal >60 [facility] Comment on above: Result Comment: >60 mL/min/1.73m2 EGFR, calc. for ages 18 and older using the MDRD formula (not corrected for weight), is valid for stable renal function. Performed By: #### P T #### [facility] [address] [place] [address] GFR/1.73 sq M.predicted MDRD (S/P/Bld) [Vol rate/Area] mL/min/{1.73_m2} Normal >60 [facility] Comment on above: Result Comment: >60 mL/min/1.73m2 EGFR, calc. for ages 18 and older using the MDRD formula (not corrected for weight), is valid for stable renal function. Performed By: #### P T #### [facility] [address] [place] [address] Glucose [Mass/Vol] 136 mg/dL Critically high 70-99 [facility] Comment on above: Performed By: #### P T #### [facility] [address] [place] [address] Potassium reflex Mg 3.6 mEq/L Normal 3.4-4.9 [facility] Comment on above: Performed By: #### P T #### [facility] [address] [place] [address] Sodium [Moles/Vol] 138 mmol/L Normal 135-144 [facility] Comment on above: Performed By: #### P T #### [facility] [address] [place] [address] Urea nitrogen [Mass/Vol] 7 mg/dL Low 8-23 [facility] Comment on above: Performed By: #### P T #### [facility] [address] [place] [address] CBC With Platelet No Differe ntialon 11-13-2018 Erythrocyte distribution width (RBC) [Ratio] 14.2 % Normal 11.5-14.5 [facility] Comment on above: Performed By: #### P T #### [facility] [address] [place] [address] Hematocrit (Bld) [Volume fraction] 40.3 % Normal 37.0-47.0 [facility] Comment on above: Performed By: #### P T #### [facility] [address] [place] [address] Hemoglobin (Bld) [Mass/Vol] 13.1 g/dL Normal 12.0-16.0 [facility] Comment on above: Performed By: #### P T #### [facility] [address] [place] [address] MCH (RBC) [Entitic mass] 29.1 pg Normal 27.0-31.3 [facility] Comment on above: Performed By: #### P T #### [facility] [address] [place] [address] MCHC (RBC) [Mass/Vol] 32.4 % Low 33.0-37.0 [facility] Comment on above: Performed By: #### P T #### [facility] [address] [place] [address] MCV (RBC) [Entitic vol] 89.9 fL Normal 82.0-100.0 [facility] Comment on above: Performed By: #### P T #### [facility] [address] [place] [address] Platelets (Bld) [#/Vol] 394 10*3/uL Normal 130-400 [facility] Comment on above: Performed By: #### P T #### [facility] [address] [place] [address] RBC (Bld) [#/Vol] 4.48 10*6/uL Normal 4.20-5.40 [facility] Comment on above: Performed By: #### P T #### [facility] [address] [place] [address] WBC (Bld) [#/Vol] 11.8 10*3/uL Critically high 4.8-10.8 [facility] Comment on above: Performed By: #### P T #### [facility] [address] [place] [address] Culture, MRSA Screenon 11-13 Culture, MRSA Screen ORDERED BY: BRENNAN HERRON SOURCE: Nares COLLECTED: 11/13/18 09:29 ANTIBIOTICS AT DI.: RECEIVED : 11/13/18 09:29 Culture, MRSA Screen FINAL 11/14/18 08:02 No MRSA isolated Normal [facility] Comment on above: Performed By: #### P T #### [facility] [address] [facility] [place] [address] FLUORO FOR SURGICAL PROCEDUR ESon 11-13-2018 FLUORO [...] Mohsen Childers MD 11/13/18 Final result Normal [facility] Surgical Specimenon 11-14-19 Surgical Specimen [facility] [address] [place] [address] FINAL SURGICAL PATHOLOGY REPORT Patient Name: HIRAM MADRID Accession No: [id number] Age Sex: 1935 Location: [facility] [id number] Account No: [id number] Collected: 11/13/2018 Med Rec No: [id number] Received: 11/14/2018 Attend Phys: LENNY CORRAL Completed: [...] two cassettes after brief decalcification. UVALDO/NIKKY CPT: 33545 X1 40087 X1 STANLEY GRAFF M.D. 11/15/2018 Electronically signed out by Page 1 of 1 [facility] Comment on above: Performed By: #### P TT #### [facility] [address] [place] [address] Type and Screen Capture 3 sc rn cellon 11-13-2018 Type and Screen Capture 3 scrn cell PATIENT: MERCY GANDHI LOC: TATIANNA SUAREZ NON BILL# : [id number] : 1935 SEX: F ORDERED BY: GOPAL AMIN ORDERED : 11/13/2018 08:10 COLLECTED: 11/13/2018 09:24 ORDER : [id number] RECEIVED : 11/13/2018 09:24 TEST NAME RESULT UNITS RANGES ABN FL ST ABORH Capture A POS F Antibody 3 Cell Scrn Captu NEG F Normal [facility] Comment on above: Performed By: #### T S3C #### [facility] [address] [place] [address] XR SPINE ENTIRE (2-3 VIEWS)o n 11-13-2018 [...] Mohsen Childers MD 11/13/18 Final result Normal [facility] MRI LUMBAR SPINE W WO CONTRA STon [...] SIGNS OF UNDERLYING PATHOLOGY OR RECENT INJURY. [facility] [place], [place] Joseph, Chpo Incoming Radiant Results From [facility] - 11/05/2018 3:07 PM EDT EXAMINATION: MRI [...] SIGNS OF UNDERLYING PATHOLOGY OR RECENT INJURY. [place] MRI LUMBAR SPINE W WO CONTRAST [...] Pearl Varghese MD 11/05/18 Final result Normal [facility] Otheron 11-05-2018 Joseph, po Incoming Radiant Results From [facility] - 11/05/2018 1:21 PM EDT EXAMINATION: XR [...] AND POSTOPERATIVE FINDINGS, WITHOUT ACUTE SUPERIMPOSED ABNORMALITY. [place] EXAMINATION: XR LUMBAR SPINE (MIN 4 [...] AND POSTOPERATIVE FINDINGS, WITHOUT ACUTE SUPERIMPOSED ABNORMALITY. [place] XR CHEST (2 VW)on 11-05-2018 XR [...] Pearl Varghese MD 11/05/18 Final result Normal [facility] XR LUMBAR SPINE (MIN 4 VIEWS )on [...] Pearl Varghese MD 11/05/18 Final result Normal [facility] APTTon 11-04-2018 aPTT Coag (Bld) [Time] 27.9 s [facility] [place], [place] Comment on above: Effective 09/06/2018: Please note methodology and/or reference ranges have changed. aPTT - Heparin Therapeutic Range: 74.0 - 106 seconds C-Reactive Proteinon 019 CRP [Mass/Vol] 1.3 mg/L Normal 0.0-5.0 [facility] Comment on above: Performed By: #### C RP #### [facility] [address] [place] [address] CRP [Mass/Vol] 1.3 mg/L 0 - 5 mg/L [place], [place] CBC Auto Differentialon 10-21 Basophils (Bld) [#/Vol] 0.1 10*3/uL 0 - 0.2 K/u L [place] Basophils/100 WBC (Bld) 1.1 % [place], [place] Eosinophils (Bld) [#/Vol] 0.2 10*3/uL 0 - 0.7 K/uL [place] Eosinophils/100 WBC (Bld) 1.3 % [place] Erythrocyte distribution width (RBC) [Ratio] 13.9 % 11.5 - 14.5 % [place] Hematocrit (Bld) [Volume fraction] 41.3 % 37 - 47 % [place] Hemoglobin (Bld) [Mass/Vol] 14.3 g/dL 12 - 16 g/dL [place] Interpretation and review of laboratory results Abnormal [place] Lymphocytes (Bld) [#/Vol] 3.5 10*3/uL 1 - 4.8 K/uL [place] Lymphocytes/100 WBC (Bld) 28.2 % [place] MCH (RBC) [Entitic mass] 30.5 pg 27 - 31.3 p g [place] MCHC (RBC) [Mass/Vol] 34.6 % 33 - 37 % [place] MCV (RBC) [Entitic vol] 88.0 fL 82 - 100 fL [place] Monocytes (Bld) [#/Vol] 0.8 10*3/uL 0.2 - 0.8 K/uL [place] Monocytes/100 WBC (Bld) 6.8 % [place] Neutrophils Absolute 7.7 K/uL High 1.4 - 6 .5 K/uL [place] Neutrophils/100 WBC (Bld) 62.6 % [place] Platelets (Bld) [#/Vol] 435 10*3/uL High 130 - 400 K/uL [place] RBC (Bld) [#/Vol] 4.69 10*6/uL [place] WBC (Bld) [#/Vol] 12.4 10*3/uL High 4.8 - 10.8 K/uL [place] CBC With Platelet and Differ entialon 11-04-2018 Basophils (Bld) [#/Vol] 0.1 10*3/uL Normal 0.0-0.2 [facility] Comment on above: Performed By: #### C BCWD #### [facility] [address] [place] [address] Basophils/100 WBC (Bld) 1.1 % Normal [facility] Comment on above: Performed By: #### C BCWD #### [facility] [address] [place] [address] Eosinophils (Bld) [#/Vol] 0.2 10*3/uL Normal 0.0-0.7 [facility] Comment on above: Performed By: #### C BCWD #### [facility] [address] [place] [address] Eosinophils/100 WBC (Bld) 1.3 % Normal [facility] Comment on above: Performed By: #### C BCWD #### [facility] [address] [place] [address] Erythrocyte distribution width (RBC) [Ratio] 13.9 % Normal 11.5-14.5 [facility] Comment on above: Performed By: #### C BCWD #### [facility] [address] [place] [address] Hematocrit (Bld) [Volume fraction] 41.3 % Normal 37.0-47.0 [facility] Comment on above: Performed By: #### C BCWD #### [facility] [address] [place] [address] Hemoglobin (Bld) [Mass/Vol] 14.3 g/dL Normal 12.0-16.0 [facility] Comment on above: Performed By: #### C BCWD #### [facility] [address] [place] [address] Lymphocytes (Bld) [#/Vol] 3.5 10*3/uL Normal 1.0-4.8 [facility] Comment on above: Performed By: #### C BCWD #### [facility] [address] [place] [address] Lymphocytes/100 WBC (Bld) 28.2 % Normal [facility] Comment on above: Performed By: #### C BCWD #### [facility] [address] [place] [address] MCH (RBC) [Entitic mass] 30.5 pg Normal 27.0-31.3 [facility] Comment on above: Performed By: #### C BCWD #### [facility] [address] [place] [address] MCHC (RBC) [Mass/Vol] 34.6 % Normal 33.0-37.0 [facility] Comment on above: Performed By: #### C BCWD #### [facility] [address] [place] [address] MCV (RBC) [Entitic vol] 88.0 fL Normal 82.0-100.0 [facility] Comment on above: Performed By: #### C BCWD #### [facility] [address] [place] [address] Monocytes (Bld) [#/Vol] 0.8 10*3/uL Normal 0.2-0.8 [facility] Comment on above: Performed By: #### C BCWD #### [facility] [address] [place] [address] Monocytes/100 WBC (Bld) 6.8 % Normal [facility] Comment on above: Performed By: #### C BCWD #### [facility] [address] [place] [address] Neutrophils (Bld) [#/Vol] 7.7 10*3/uL Critically high 1.4-6.5 [facility] Comment on above: Performed By: #### C BCWD #### [facility] [address] [place] [address] Neutrophils/100 WBC (Bld) 62.6 % Normal [facility] Comment on above: Performed By: #### C BCWD #### [facility] [address] [place] [address] Platelets (Bld) [#/Vol] 435 10*3/uL Critically high 130-40 0 [facility] Comment on above: Performed By: #### C BCWD #### [facility] [address] [place] [address] RBC (Bld) [#/Vol] 4.69 10*6/uL Normal 4.20-5.40 [facility] Comment on above: Performed By: #### C BCWD #### [facility] [address] [place] [address] WBC (Bld) [#/Vol] 12.4 10*3/uL Critically high 4.8-10.8 [facility] Comment on above: Performed By: #### C BCWD #### [facility] [address] [place] [address] Comprehensive Metabolic Pane carlos 11-04-2018 Anion gap [Moles/Vol] 14 mmol/L Normal 9-15 [facility] Comment on above: Order Comment: CALL [facility] tel. [phone], Potassium results called to and read back by onofre Millan RN, 11/04/2018 16:24, by WEB[employer] Performed By: #### C MP #### [facility] [address] [place] [address] Bilirubin [Mass/Vol] 0.4 mg/dL Normal 0.2-0.7 [facility] Comment on above: Order Comment: CALL [facility] tel. [phone], Potassium results called to and read back by onofre Millan RN, 11/04/2018 16:24, by WEBAM Performed By: #### C MP #### [facility] [address] [place] [address] GFR/1.73 sq M predicted among blacks MDRD (S/P/Bld) [Vol rate/Area] mL/min/{1.73_m2} Normal >60 [facility] Comment on above: Order Comment: CALL [facility] tel. [phone], Potassium results called to and read back by onofre Millan RN, 11/04/2018 16:24, by WEBAM Result Comment: >60 mL/min/1.73m2 EGFR, calc. for ages 18 and older using the MDRD formula (not corrected for weight), is valid for stable renal function. Performed By: #### C MP #### [facility] [address] [place] [address] GFR/1.73 sq M.predicted MDRD (S/P/Bld) [Vol rate/Area] mL/min/{1.73_m2} Normal >60 [facility] Comment on above: Order Comment: CALL [facility] tel. [phone], Potassium results called to and read back by onofre Millan RN, 11/04/2018 16:24, by WEBAM Result Comment: >60 mL/min/1.73m2 EGFR, calc. for ages 18 and older using the MDRD formula (not corrected for weight), is valid for stable renal function. Performed By: #### C MP #### [facility] [address] [place] [address] Albumin [Mass/Vol] 4.5 g/dL Normal 3.5-4.6 [facility], [place] Comment on above: Order Comment: CALL [facility] tel. [phone], Potassium results called to and read back by onofre Millan RN, 11/04/2018 16:24, by WEBAM Performed By: #### C MP #### [facility] [address] [place] [address] ALP [Catalytic activity/Vol] 76 U/L Normal 40-130 [facility], [place] Comment on above: Order Comment: CALL [facility] tel. [phone], Potassium results called to and read back by onofre Millan RN, 11/04/2018 16:24, by WEBAM Performed By: #### C MP #### [facility] [address] [place] [address] ALT [Catalytic activity/Vol] 15 U/L Normal 0-33 [place] Comment on above: Order Comment: CALL [facility] tel. [phone], Potassium results called to and read back by onofre Millan RN, 11/04/2018 16:24, by WEBAM Performed By: #### C MP #### [facility] [address] [place] [address] AST [Catalytic activity/Vol] 20 U/L Normal 0-35 [place] Comment on above: Order Comment: CALL [facility] tel. [phone], Potassium results called to and read back by onofre Millan RN, 11/04/2018 16:24, by WEBAM Performed By: #### C MP #### [facility] [address] [place] [address] Calcium [Mass/Vol] 9.9 mg/dL Normal 8.5-9.9 [place] Comment on above: Order Comment: CALL [facility] tel. [phone], Potassium results called to and read back by onofre Millan RN, 11/04/2018 16:24, by WEBAM Performed By: #### C MP #### [facility] [address] [place] [address] Chloride [Moles/Vol] 96 mmol/L Normal 95-107 [place], [place] Comment on above: Order Comment: CALL [facility] tel. [phone], Potassium results called to and read back by onofre Millan RN, 11/04/2018 16:24, by WEBAM Performed By: #### C MP #### [facility] [address] [place] [address] CO2 [Moles/Vol] 24 mmol/L Normal 20-31 [place], [place] Comment on above: Order Comment: CALL [facility] tel. [phone], Potassium results called to and read back by onofre Millan RN, 11/04/2018 16:24, by WEBAM Performed By: #### C MP #### [facility] [address] [place] [address] Creatinine [Mass/Vol] 0.67 mg/dL Normal 0.50-0.90 [place] Comment on above: Order Comment: CALL [facility] tel. [phone], Potassium results called to and read back by onofre Millan RN, 11/04/2018 16:24, by WEBAM Performed By: #### C MP #### [facility] [address] [place] [address] Globulin (S) [Mass/Vol] 2.8 g/dL Normal 2.3-3.5 [place] Comment on above: Order Comment: CALL [facility] tel. [phone], Potassium results called to and read back by onofre Millan RN, 11/04/2018 16:24, by WEBAM Performed By: #### C MP #### [facility] [address] [place] [address] Glucose [Mass/Vol] 109 mg/dL Critically high 70-99 [place], [place] Comment on above: Order Comment: CALL [facility]ED tel. [phone], Potassium results called to and read back by onofre Millan RN, 11/04/2018 16:24, by WEBAM Performed By: #### C MP #### [facility] [address] [place] [address] Potassium [Moles/Vol] 3.0 mmol/L Critically low 3.4-4.9 [place] Comment on above: Order Comment: CALL [facility] tel. [phone], Potassium results called to and read back by onofre Millan RN, 11/04/2018 16:24, by WEBAM Performed By: #### C MP #### [facility] [address] [place] [address] Protein [Mass/Vol] 7.3 g/dL Normal 6.3-8.0 [place] Comment on above: Order Comment: CALL [facility] tel. [phone], Potassium results called to and read back by onofre Millan RN, 11/04/2018 16:24, by WEBAM Performed By: #### C MP #### [facility] [address] [facility] [address] Sodium [Moles/Vol] 134 mmol/L Low 135-144 [place] Comment on above: Order Comment: CALL [facility] LCED tel. [phone], Potassium results called to and read back by onofre Millan RN, 11/04/2018 16:24, by WEBAM Performed By: #### C MP #### [facility] [address] [facility] [address] Urea nitrogen [Mass/Vol] 8 mg/dL Normal 8-23 [place] Comment on above: Order Comment: CALL [facility] tel. [phone], Potassium results called to and read back by onofre Millan RN, 11/04/2018 16:24, by WEBAM Performed By: #### C MP #### [facility] [address] [facility] [address] Anion gap [Moles/Vol] 14 mmol/L [place] Bilirubin Ql (U) 0.4 mg/dL 0.2 - 0.7 mg/dL [place] GFR >60.0 >60 [place] Comment on above: >60 mL/min/1.73m2 EG FR, calc. for ages 18 and older using the MDRD formula (not corrected for weight), is valid for stable renal function. GFR Non- >60.0 >60 [place] Comment on above: >60 mL/min/1.73m2 EG FR, calc. for ages 18 and older using the MDRD formula (not corrected for weight), is valid for stable renal function. Interpretation and review of laboratory results Abnormal [place] Potassium [Moles/Vol] CALL [facility] tel . [phone], Potassium results called to and read back by onofre Millan RN, 11/04/2018 16:24, by TAMMY [place] Partial Thromboplastin Timeo n 11-04-2018 aPTT Coag (Bld) [Time] 27.9 s Normal 24.4-36.8 [facility] Comment on above: Result Comment: Effe ctive 09/06/2018: Please note methodology and/or reference ranges have changed. aPTT - Heparin Therapeutic Range: 74.0 - 106 seconds Performed By: #### P TT #### [facility] [address] [facility] [address] Prothrombin Timeon 9 INR Coag (PPP) [Relative time] 0.9 {INR} Normal [facility] Comment on above: Result Comment: Warf camden Therapy INR Therapeutic: 2.0-3.0 With Mechanical Valve: >2.5 Low-intensity Therapeutic Range: 1.5-2.0 Mod-intensity Therapeutic Range: 2.0-3.0 High-intensity Therapeutic Range: 2.5-3.5 HIgh-intensity Therapeutic Range: 3.0-4.0 Common Critical/Alarm Value: 5.0 Common Upper Limit Reported: 10.0 Effective 08/30/2018: Please note methodology and/or reference ranges have changed. Performed By: #### P T #### [facility] [address] [facility] [address] PT Coag (PPP) [Time] 12.1 s Low 12.3-14.9 [facility] Comment on above: Result Comment: Effe ctive 08/30/18 Please note methodology and/or reference ranges have changed. Performed By: #### P T #### [facility] [address] [facility] [address] Protime-INRon 11-04-2018 INR Coag (PPP) [Relative time] 0.9 {INR} [place] Comment on above: Warfarin Therapy INR Therapeutic: 2.0-3.0 With Mechanical Valve: >2.5 Low-intensity Therapeutic Range: 1.5-2.0 Mod-intensity Therapeutic Range: 2.0-3.0 High-intensity Therapeutic Range: 2.5-3.5 HIgh-intensity Therapeutic Range: 3.0-4.0 Common Critical/Alarm Value: 5.0 Common Upper Limit Reported: 10.0 Effective 08/30/2018: Please note methodology and/or reference ranges have changed. Interpretation and review of laboratory results Abnormal [place] PT Coag (PPP) [Time] 12.1 s [place] Comment on above: Effective 08/30/18 Please note methodology and/or reference ranges have changed. Sedimentation Rateon 019 Sedimentation Rate 12 mm Normal 0-30 [facility] Comment on above: Performed By: #### E SR #### [facility] [address] [place] [id number] Sed Rate 12 mm 0 - 30 mm [place] Vital Signs Date Time Vital Sign Value Performing Clinician Ivonne ledesma 05-03-2023 14:21-0400 Blood Pressure Location Turner DOSS [facility] [place] 05-03-2023 14:21-0400 Diastolic blood pressure 82 mm[Hg] Turner DOSS [facility] 05-03-2023 14:21-0400 Heart rate 76 /min Turner DOSS [facility] [place] 05-03-2023 14:21-0400 Respiratory rate 16 /min Turner DOSS [facility] [place] 05-03-2023 14:21-0400 Systolic blood pressure 156 mm[Hg] Turner DOSS [facility] [place] 04-15-2023 13:38-0500 Diastolic blood pressure 70 mm[Hg] MD Addy Daniels Work Phone: [facility] 04-15-2023 13:38-0500 Heart rate 76 /min MD Addy Daniels Work Phone: [facility] 04-15-2023 13:38-0500 Respiratory rate 18 /min MD Addy Daniels Work Phone: [facility] 04-15-2023 13:38-0500 SaO2% (BldA) [Mass fraction] 97 % MD Addy Daniels Work Phone: [facility] 04-15-2023 13:38-0500 Systolic blood pressure 160 mm[Hg] MD Addy Daniels Work Phone: [facility] 04-15-2023 12:07-0500 Body height 154.94 cm MD Addy Daniels Work Phone: [facility] 04-15-2023 12:07-0500 Body temperature 97.8 [degF] MD Addy Daniels Work Phone: [facility] 04-15-2023 12:07-0500 Body weight 60.5 kg MD Addy Daniels Work Phone: [facility] 04-06-2023 11:51-0500 Body temperature 97.9 [degF] MD Addy Daniels Work Phone: [facility] 04-06-2023 11:51-0500 Diastolic blood pressure 76 mm[Hg] MD Addy Daniels Work Phone: [facility] 04-06-2023 11:51-0500 Heart rate 84 /min MD Addy Daniels Work Phone: [facility] 04-06-2023 11:51-0500 Respiratory rate 18 /min MD Addy Daniels Work Phone: [facility] 04-06-2023 11:51-0500 SaO2% (BldA) [Mass fraction] 97 % MD Addy Daniels Work Phone: [facility] 04-06-2023 11:51-0500 Systolic blood pressure 146 mm[Hg] MD Addy Daniels Work Phone: [facility] 04-06-2023 06:00-0500 Body weight 58.6 kg MD Addy Daniels Work Phone: [facility] 04-04-2023 13:15-0500 Body height 154.94 cm MD Addy Daniels Work Phone: [facility] 12-22-2022 11:40-0400 Blood Pressure Location MIKAYLA WEISS [facility] 12-22-2022 11:40-0400 Diastolic blood pressure 84 mm[Hg] MIKAYLA WEISS [facility] 12-22-2022 11:40-0400 Systolic blood pressure 124 mm[Hg] MIKAYLAJAQUELINE WEISS [facility] 08-06-2022 00:10-0400 Body temperature 97.3 [degF] MD Addy Daniels Work Phone: [facility] 08-06-2022 00:10-0400 Diastolic blood pressure 74 mm[Hg] MD Addy Daniels Work Phone: [facility] 08-06-2022 00:10-0400 Heart rate 80 /min MD Addy Daniels Work Phone: [facility] 08-06-2022 00:10-0400 Respiratory rate 18 /min MD Addy Daniels Work Phone: [facility] 08-06-2022 00:10-0400 SaO2% (BldA) [Mass fraction] 96 % MD Addy Daniels Work Phone: [facility] 08-06-2022 00:10-0400 Systolic blood pressure 177 mm[Hg] MD Addy Daniels Work Phone: [facility] 08-05-2022 19:51-0400 Body height 154.94 cm MD Addy Daniels Work Phone: [facility] 08-05-2022 19:51-0400 Body weight 67.6 kg MD Addy Daniels Work Phone: [facility] 11-20-2018 07:02-0400 Body Temperature 97 [degF] Mary Vega [facility], [place] 11-20-2018 07:02-0400 BP Diastolic 61 mm[Hg] Mary Vega [facility], [place] 11-20-2018 07:02-0400 BP Systolic 153 mm[Hg] Mary Vega [facility], [place] 11-20-2018 07:02-0400 Pulse (Heart Rate) 75 /min Mary Vega [facility], [place] 11-20-2018 07:02-0400 Pulse Oximetry 97 % Mary Vega [facility], [place] 11-20-2018 07:02-0400 Respiratory Rate 17 /min Mary Vega [facility], [place] 11-17-2018 05:54-0400 BMI (Body Mass Index) 27.62 kg/m2 Mary Vega [facility], [place] 11-17-2018 05:54-0400 Body [facility].3 [facility] 11-15-2018 15:58-0400 Height 154.9 cm Mary Vega [facility], [place] 11-05-2018 07:30-0400 BP Diastolic 57 mm[Hg] [facility] [place] 11-05-2018 07:30-0400 BP Systolic 135 mm[Hg] [facility] [place] 11-05-2018 07:30-0400 Pulse (Heart Rate) 70 /min [facility] [place] 11-05-2018 07:30-0400 Pulse Oximetry 97 % [facility] [place] 11-04-2018 20:06-0400 Body Temperature 98.4 [degF] Lenny [facility], [place] 11-04-2018 20:06-0400 Respiratory Rate 16 /min Lenny [facility], [place] 11-04-2018 14:56-0400 BMI (Body Mass Index) 27.4 kg/m2 Lenny Ellis [facility], [place] 11-04-2018 14:56-0400 Body weight 65.77 kg [place] 11-04-2018 14:56-0400 Height 154.9 cm [facility] , [place] Encounters Encounter Date Encounter Type Care Provider Facility Start: 06-29-2023 ambulatory MIKAYLAABRAHAN WEISS [place] ty:[facility] [place] Start: 06-28-2023 End: 06-28-2023 ambulatory Turner R DINESHL Facility: [facility] Start: 06-28-2023 End: 06-28-2023 [facility] [place] Start: 06-21-2023 End: 06-21-2023 ambulatory MD Addy Daniels Work Phone: [facility] Work Phone: Start: 06-21-2023 End: 06-21-2023 Departed Referred MD Addy Daniels Work Phone: [facility] Start: 06-21-2023 End: 06-21-2023 ambulatory Turner R NILL Facility:[id number] Start: 05-03-2023 End: 05-03-2023 ambulatory Addy Daniels Facility:[facility] Start: 05-03-2023 End: 05-03-2023 Patient encounter procedure Turner R NILL [facility] N[facility] [place] Start: 04-15-2023 End: 04-15-2023 Emergency department patient visit MD Addy Daniels Work Phone: [facility]-Emergency [facility] Work Phone: Start: 04-13-2023 ambulatory Turner NILL Facility:[facility] Start: 04-12-2023 Non-patient / Non-visit MD Aime Daniels Work Phone: [facility] Work Phone: Start: 04-03-2023 Non-patient / Non-visit MD Aime Daniels Work Phone: [facility] Ne[facility] Work Phone: Start: 04-02-2023 Non-patient / Non-visit MD Aime Daniels Work Phone: [facility] Work Phone: Start: 04-02-2023 End: 04-06-2023 Evaluation and management of inpatient MD Addy Daniels Work Phone: [facility] [place] [facility] Work Phone: Start: 01-11-2023 End: 01-11-2023 ambulatory [facility] [facility] Start: 12-22-2022 End: 12-22-2022 ambulatory MIKAYLA WEISS Facility:[facility] Start: 12-22-2022 End: 12-22-2022 Patient encounter procedure MIKAYLA WEISS [facility] Start: 10-14-2022 End: 10-14-2022 ambulatory [facility] Start: 08-05-2022 End: 08-06-2022 Emergency department patient visit MD Addy Daniels Work Phone: [facility] Work Phone: Start: 06-13-2022 End: 06-14-[address] ADDY DANIELS . Facility:[facility] Start: 05-19-[address] ADDY DANIELS . Facili ty:[facility] Start: 04-18-2022 End: 04-19-[address] VALERIE DARDEN Facility:[facility] Start: 04-04-2022 End: 04-04-2022 ambulatory [facility] Start: 01-30-[address] ADDY DANIELS . Facili ty:[facility] Start: 01-04-2022 End: 01-05-[address] ADDY DANIELS . Facility:[facility] Start: 12-26-2021 End: 12-29-2021 Evaluation and management of inpatient DR ADDY DANIELS . Facility:[facility] Start: 12-02-2021 End: 01-04-2022 Pre-admission assessment Alie Santos [facility] Start: 11-30-2021 End: 12-01-[address] JESUS BRUNO Facility:[facility] Start: 11-09-2021 End: 11-10-[address] CALISTA ACEVES Facility:[facility] Start: 08-06-2021 End: 08-07-[address] VALERIE DARDEN Facility:[facility] Start: 07-28-2021 End: 07-29-[address] CALISTA ACEVES Facility:[facility] Start: 06-22-2021 End: 06-22-2021 Patient encounter procedure VALERIE DARDEN [facility] Start: 11-15-2018 End: 11-20-2018 Evaluation and management of inpatient MRAY VEGA [facility] Start: 11-15-2018 End: 11-20-2018 Evaluation and management of inpatient Mary Vega Work Phone: [facility] Comment on above: Spinal stenosis of l umbosacral region (Primary Dx); Impaired mobility; Vasovagal syncope Start: 11-13-2018 End: 11-15-2018 Evaluation and management of inpatient LENNY CORRAL [facility] Start: 11-13-2018 End: 11-15-2018 Patient encounter procedure LENNY CORRAL [facility] Start: 11-04-2018 End: 11-05-2018 Patient encounter procedure CALISTA ACEVES [facility] Start: 11-04-2018 End: 11-05-2018 Emergency department patient visit Lenny Corral Work Phone: [facility] Comment on above: Lumbar radiculopathy (Primary Dx); Intractable low back pain Start: 04-19-2018 End: 04-20-2018 Patient encounter procedure DEFAULT PHYSICIAN Facility:[facility] Procedures Date Procedure Procedure Detail Performing [...] r-t 2d w/ wom-mode compl spec&colr d [facility] Work Phone: Start: 11-16-2018 INCENTIVE SPIROMETRY RT CALISTA ACEVES Start: 11-16-2018 INCENTIVE SPIROMETRY RT CALISTA KETAN Start: 11-16-2018 NURSING COMMUNICATION M DORA ACEVES Start: 11-16-2018 INCENTIVE SPIROMETRY RT CALISTA EKTAN Start: 11-16-2018 INITIATE OXYGEN THER APY PROTOCOL [...] ICAL VTE PROPHYLAXIS CALISTA ACEVES Start: 11-15-2018 MICROBIOLOGY LAB ANALYST EVAL AND TREAT CHRIS ACEVES Start: 11-15-2018 [...] above: Performed By: #### P TT #### [facility] [address] [place] [address] Start: 11-15-2018 Urnls dip stick/tabl et rgnt auto w/o microscopy Mary Vega Work Phone: Start: 11-15-2018 IP CONSULT TO HOSPITALIST CLAISTA ACEVES Start: 11-15-2018 PATIENT STATUS (DIRECT) CALISTA [...] Date Care Activity Detail Author Start: 04-06-2023 [facility] Start: 04-04-2023 Administration of prophylactic treatment [facility] Start: 04-02-2023 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 supervisor [facility] Start: 04-02-2023 Hospital admission [facility] Start: 08-05-2022 CT Abdomen and Pelvi s WO contrast [facility] Start: 08-05-2022 CT of abdomen and pe lvis without contrast CT abdomen pelvis wo con [facility] Start: 11-19-2019 Creatinine monitoring Creatinine mon [place], [place] Start: 11-19-2019 Potassium monitoring Potassium monit [place], [place] Start: 11-05-2019 Creatinine monitoring Creatinine mon [place], [place] Start: 11-05-2019 Potassium monitoring Potassium monit [place], [place] Start: 12-04-2018 End: 12-04-2018 Office Visit 12/04/2018 Office Visit Neurosurgery Lenny Corral MD [address] [facility], [address] [place] [id number] [employer] Start: 11-30-2018 End: 11-30-2018 Office Visit 11/30/2018 Office Visit Neurosurgery Lenny Corral MD [address] [facility], [address] [address] [phone] [employer] Start: 11-23-2018 End: 11-23-2018 Office Visit 11/23/2018 Office Visit Neurosurgery Lenny Corral MD [address] [facility], [address] [id number] [employer] Start: 11-13-2018 Annual Wellness Visi t (AWV) Annual Wellness Visit (AWV) [place], [place] Start: 10-21-2018 Influenza vaccination Flu vaccine (# 1) [place], [place] Start: 2001 DEXA (modify frequen cy per FRAX score) DEXA (modify frequency per FRAX score) [place], [place] Start: 2001 Pneumococcal 65+ yea rs Vaccine (1 of 2 - PCV13) Pneumococcal 65+ years Vaccine (1 of 2 - PCV13) [place], [place] Start: 1986 Shingles Vaccine (1 of 2) Steward gles Vaccine (1 of 2) [place] Start: 11-13-1955 DTaP/Tdap/Td vaccine (1 - Tdap) DTaP/Tdap/Td vaccine (1 - Tdap) [place], [place] Start: 1946 Lipid screen Lipid screen [place], [place] Culture Blood #1 Culture Blood # 1 Microbiology STAT 11/15/2018 4:37 PM EDT [place], [place] Culture Blood #2 Culture Blood # 2 Microbiology STAT 11/15/2018 4:37 PM EDT [place] End: 11-05-2018 EKG 12 Lead EKG 12 Lead ECG Routine One Time for 1 Occurrences starting 11/05/2018 until 11/05/2018 [place] Comment on above: One Time for 1 Occur rences starting 11/05/2018 until 11/05/2018 Incentive spirometry Incentive s pirometry Respiratory Care Routine Every 2hr while awake until discontinued starting 11/15/2018 [facility] MD Comment on above: Every 2hr while awak e until discontinued starting 11/15/2018 Initiate Oxygen Ther apy Protocol Initiate Oxygen Therapy Protocol Respiratory Care Routine Daily until discontinued starting 11/15/2018 [facility] MD Comment on above: Daily until disconti nued starting 11/15/2018 Nonrebreather mask oxygen Nonreb reather mask oxygen Respiratory Care Routine As directed - RT (PRN) until discontinued starting 11/05/2018 [facility] MD Comment on above: As directed - RT (MO N) until discontinued starting 11/05/2018 Patient Education [facility] Work Phone: Patient referral [facility] Work Phone: End: 11-15-2018 Speech and language therapy regime Speech language pathology evaluation MICROBIOLOGY LAB ANALYST Routine One Time for 1 Occurrences starting 11/15/2018 until 11/15/2018 [facility] MD Comment on above: One Time for 1 Occur rences starting 11/15/2018 until 11/15/2018 End: 11-04-2018 Urine Reflex to Culture Urine Reflex to Culture Lab STAT One Time for 1 Occurrences starting 11/04/2018 until 11/04/2018 [facility] MD Comment on above: One Time for 1 Occur rences starting 11/04/2018 until 11/04/2018 Immunizations Immunization Date Immunization Notes Care Provider Laxmi romero 12-20-2021 influenza virus vaccine, unspecified formulation MIKAYLA WEISS [facility] 11-30-2021 influenza virus vaccine, unspecified formulation MD Addy Daniels Work Phone: [facility] 12-21-2020 influenza virus vaccine, unspecified formulation MIKAYLA WEISS [facility] 01-09-2019 influenza virus vaccine, unspecified formulation MIKAYLA WEISS [facility] 11-29-2017 influenza virus vaccine, unspecified formulation MIKAYLA WEISS [facility] 01-02-2017 influenza virus vaccine, unspecified formulation MIKAYLA WEISS [facility] 12-06-2016 influenza virus vaccine, unspecified formulation MIKAYLA WEISS [facility] 12-11-2014 influenza virus vaccine, unspecified formulation MIKAYLA WEISS [facility] NEGATED: Highlighted row has not occurred!05-03-2023 influenza virus vaccine, unspecified formulation Turner DOSS [facility] [place] Payers Date Payer Category Payer Self-pay [id number] 2021 Unknown [id number] 2018 Medicare MEDICARE MEDICAR E PART A AND B xxxxxxxxxxx 2018-Present [phone] [place] [address] xxxxxxxxxxx [id number] 2014 Medicare [id number] 2014 Medicare MEDICARE MEDICAR E PART A AND B xxxxxxxxxx 2014-Present [phone] [address] [address] [place] [address] xxxxxxxxxx [id number] 2014 Unknown [id number] 2014 Unknown 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 [address] xxxxxxxxxxxx 2014-Present [phone] [address] [place] [address] xxxxxxxxxxxx [id number] [id number] 1959 Medicare [id number] 1959 Self-pay [id number] 1959 Unknown [id number] 1936 Unknown [id number] 2.16.840.1.204624.3.579.2.647 1936 Unknown [id number] 2.16.840.1.004273.3.579.2.182 1936 Unknown [id number] 2.16.840.1.422668.3.579.2.182 1936 Unknown [id number] 2.16.840.1.560289.3.579.2.182 1936 Unknown [id number] 2.16.840.1.842370.3.579.2.182 1936 Unknown [id number] 2.16.840.1.909601.3.579.2.593 1936 Unknown [id number] 2.16.840.1.714745.3.579.2.593 1936 Unknown [id number] 2.16.840.1.535198.3.579.2.593 1936 Unknown [id number] 2.16.840.1.722349.3.579.2.593 1936 Unknown [id number] 2.16.840.1.851858.3.579.2.593 1936 Unknown [id number] 2.16.840.1.918796.3.579.2.593 1936 Unknown [id number] 2.16.840.1.975770.3.579.2.593 1936 Unknown [id number] 2.16.840.1.774275.3.579.2.593 1936 Unknown [id number] 2.16.840.1.929501.3.579.2.593 1936 Unknown [id number] 2.16.840.1.710224.3.579.2.593 1936 Unknown [id number] 2.16.840.1.478534.3.579.2.727 1936 Unknown [id number] 2.16.840.1.233009.3.579.2.727 1936 Unknown [id number] 2.16.840.1.125699.3.579.2.727 1936 Unknown [id number] 2.16.840.1.953459.3.579.2.727 1936 Unknown [id number] 2.16.840.1.384676.3.579.2.727 Unknown Unknown [id number] 2.16.840.1.175348.3.579.2.531 Unknown [id number] 2.16.840.1.580867.3.579.2.531 Unknown [id number] 2.16.840.1.299735.3.579.2.531 Social History Date Type Detail Facility Start: 11-04-2018 End: 04-15-2023 Tobacco smoking status NHIS Never smoker [facility] Start: 11-04-2018 End: 11-19-2018 Alcohol intake Not Currently [place] Sex Assigned At Not on file [place] Tobacco smoking status No Smokin g Status Entered [facility] Start: 1935 Sex Assigned At Female F [facility] Tobacco smoking status Never [facility] Medical Equipment Procedure Code Equipment Code Equipment Origin al Text Equipment Identifier Dates Graft Canc Chip 30cc [id number] - [id number] Start: 11-13-2018 Graft Canc Chip [id number] 15cc - [id number] Start: 11-13-2018 Sys Fix Reline 0 x Conn 40 50mm 5.5lp Adj [id number] Start: 11-13-2018 Jose Armando-Graft Infuse Kt Med [id number] Start: 11-13-2018 Impl Spine Cage Kamila Crv [id number] 8deg [id number] Start: 11-13-2018 Impl Spine Cage Kamila Crv [id number] 8deg [id number] Start: 11-13-2018 Screw Polyaxial Reline O 2s 6.0x55mm [id number] Start: 11-13-2018 Screw Lk Reline Opn Tulip 5.5mm [id number] Start: 11-13-2018 Impl Spine Harish Reline-O Lrdtc 5.5x70mm [id number] Start: 11-13-2018 Impl Spine Harish Reline-O 5.5x75mm [id number] Start: 11-13-2018 Goals Date Patient Goal Desired Activity /State Functional Status Date Assessment Result Facility 05-03-2023 Functional Status N/A [facility] [place] 04-06-2023 Functional status Patient at Baseline [facility] Work Phone: 12-22-2022 Functional Status N/A [facility] Mental Status Date Assessment Result Facility 04-06-2023 Cognitive function Cognitive Sta tus Patient at Baseline [facility] Work Phone: Clinical Notes [...] plan excisional biopsy under local anesthesia at [facility], for definitive diagnosis and treatment, informed [...] mg= 1 tab(s), Oral, Daily Potassium Chloride (Xap-Zqxh-Btu 10), 20 mEq, Oral, TID pravastatin 80 [...] Recorded influenza virus vaccine, inactivated 12/11/2014 Recorded [facility] Comment on above: Result Comment: Elec tronically Signed By: ROMARIO DUMONT, Turner Mckeon\.real\Date and Time Signed: 05/03/23 20:14 EDT 04-06-2023 Discharge summary Note Date/Time April 06, 2023 12:22pm [facility] [address] [place] [address] Discharge Summary Signed Patient: Hiram Madrid MR#: [id number] : 1935 Acct:[id number] Age/Sex: 87 / F Adm Date: 4 Loc: Room: 3V4852-[address]: Turner Frank DO Copies to: [...] is a 89-year-old who presented here to [facility] as a transfer on 04/02/2023. She [...] Plan Discharge Plan Patient Disposition: Home Health [facility] Activity: Ambulate as Tolerated Diet: Low-Sodium Additional [...] <Electronically signed by Turner Frank DO> 04/06/[address] [place] [address] Work Phone: 1(278) 877-395002-14-2024 Progress note Author Turner Frank [facility] April 05, 2023 8:14pm Note Date/Time April 05, 2023 8:14pm [facility] [address] [place] [address] Hospitalist Progress Note Signed Patient: Hiram Madrid MR#: [id number] : 1935 Acct:[id number] Age/Sex: 87 / F Adm Date: 4 Loc: Room: [address] [place] [address] Type: ADM IN Attending Dr: Turner Frank [...] Meq Kcl IV 04/01/24 20:29 0 mls/hr .[id number] [place] Infusion Levothyroxine Sodium 88 mcg 04/03/23 [...] <Electronically signed by Turner Frank DO> 04/05/232013 [facility] Work Phone: 1(854) 464-531402-14-2024 Progress note Author Gaudencio [facility] April 05, 2023 11:16am Note Date/Time April 05, 2023 11:16am [facility] [address] [place] [address] Nephrology Progress Note Signed Patient: Hiram Madrid MR#: [id number] : 1935 Acct:[id number] Age/Sex: 87 / F Adm Date: 4 Loc: 4 Room: [id number] Type: ADM IN Attending Dr: Turner Frank DO Copies to: ~ Date of Service: 04/05/2023 Subjective Subjective Narrative: Ms. Madrid is an 87-year-old white female was transferred from [facility] on 04/02/23 for hyponatremia. Patient did complain [...] emergency room and subsequently was transferred to [facility] for further management. On arrival, patient was placed on gentle hydration with normal saline with 20 mEq potassium chloride at rate of75 cc/h. 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 Sodium has been running in the 120s. [...] [facility] [...] 10 Mg Tablet) 10 mg PO DAILY [facility] Stop: 04/02/24 08:59 Last Admin: 04/05/23 08:25 Dose: 10 mg Docusate Sodium (Docusate 100 Mg Capsule) 200 mg PO BID PRN PRN Reason: Constipation Stop: 04/01/24 19:57 Docusate Sodium (Docusate 100 Mg Capsule) 200 mg PO BID [facility] Stop: 04/02/24 08:59 Last Admin: 04/05/23 08:25 Dose: 200 mg Hydralazine HCl (Hydralazine 20 Mg/Ml Vial) 10 mg IV-PUSH Q4H PRN PRN Reason: if SBP > 185 Stop: 04/01/24 19:57 Potassium Chloride/Sodium Chloride (0.9 % Nacl-20 Meq Kcl) 1,000 mls @ 75 mls/hr IV .[id number] [facility] Stop: 04/01/24 20:29 Last Infusion: 04/04/23 [...] signed by MD Gaudencio Romero> 04/05/23 1116 [facility] Work Phone: 1(633) 321-923502-13-2024 Progress note Author Gaudencio Romero [facility] April 04, 2023 2:06pm Note Date/Time April 04, 2023 2:00pm [facility] [address] [place] [address] Nephrology Progress Note Signed Patient: Hiram Madrid MR#: [id number] : 1935 Acct:[id number] Age/Sex: 87 / F Adm Date: 4 Loc: Room: [address] [place] [address] Type: ADM IN Attending Dr: Turner Frank DO Copies to: ~ Date of Service: 04/04/2023 Subjective Subjective Narrative: Ms. Madrid is an 87-year-old white female was transferred from [facility] on 04/02/23 for hyponatremia. Patient did complain [...] emergency room and subsequently was transferred to [facility] for further management. On arrival, patient was placed on gentle hydration with normal saline with 20 mEq potassium chloride at rate of75 cc/h. 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 Sodium has been running in the 120s. [...] 10 Mg Tablet) 10 mg PO DAILY [facility] Stop: 04/02/24 08:59 Last Admin: 04/04/23 10:06 Dose: 10 mg Docusate Sodium (Docusate 100 Mg Capsule) 200 mg PO BID PRN PRN Reason: Constipation Stop: 04/01/24 19:57 Docusate Sodium (Docusate 100 Mg Capsule) 200 mg PO BID [facility] Stop: 04/02/24 08:59 Last Admin: 04/04/23 10:06 Dose: Not Given Hydralazine HCl (Hydralazine 20 Mg/Ml Vial) 10 mg IV-PUSH Q4H PRN PRN Reason: if SBP > 185 Stop: 04/01/24 19:57 Potassium Chloride/Sodium Chloride (0.9 % Nacl-20 Meq Kcl) 1,000 mls @ 75 mls/hr IV .[id number] [place] Stop: 04/01/24 20:29 Last Infusion: 04/04/23 08:45 Dose: 0 mls/hr Levothyroxine Sodium (Levothyroxine 88 Mcg Tablet) 88 mcg PO DAILY@0630 [facility] Stop: 04/02/24 06:29 Last Admin: 04/04/23 06:26 Dose: 88 mcg Lorazepam (Lorazepam 2 Mg/Ml Vial) 0.25 mg IV-PUSH Q4H PRN PRN Reason: Anxiety Stop: 10/01/23 11:38 Losartan Potassium (Losartan 50 Mg Tablet) 100 mg PO DAILY [facility] Stop: 04/02/24 08:59 Last Admin: 04/04/23 10:06 Dose: 100 mg Pantoprazole Sodium (Pantoprazole 40 Mg Tablet.Dr) 40 mg PO DAILY.0630 [facility] Stop: 04/04/24 08:59 Pravastatin Sodium (Pravastatin 40 Mg Tablet) 80 mg PO DAILY [facility] Stop: 04/02/24 08:59 Last Admin: 04/04/23 [...] outpatient Documented By: Gaudencio Romero MD 04/04/23 5560 Signed By: <Electronically signed by MD Gaudencio Romero> 04/04/23 8444 [facility] Work Phone: 1(316) 518-857002-13-2024 Progress note Author Turner Frank [facility] April 04, 2023 1:09pm Note Date/Time April 04, 2023 1:09pm [facility] [address] [place] [address] Hospitalist Progress Note Signed Patient: Hiram Madrid MR#: [id number] : 1935 Acct:[id number] Age/Sex: 87 / F Adm Date: 4 Loc: 4 Room: [address] [place] [address] Type: ADM IN Attending Dr: Turner Frank [...] Meq Kcl IV 04/01/24 20:29 0 mls/hr .[id number] [place] Infusion Levothyroxine Sodium 88 mcg 04/03/23 [...] <Electronically signed by Turner Frank DO> 04/04/23 5555 [facility] Work Phone: 1(897) 127-731302-12-2024 Progress note Author Turner Frank [facility] April 03, 2023 7:29pm Note Date/Time April 03, 2023 7:29pm [facility] [address] [place] [address] Hospitalist Progress Note Signed Patient: Hiram Madrid MR#: [id number] : 1935 Acct:[id number] Age/Sex: 87 / F Adm Date: 4 Loc: Room: [address] [place] [address] Type: ADM IN Attending Dr: Turner Frank [...] Meq Kcl IV 04/01/24 20:29 75 mls/hr .[id number] [place] Administration Levothyroxine Sodium 88 mcg 04/03/23 [...] <Electronically signed by Turner Frank DO> 04/03/231928 [facility] Work Phone: 1([phone]) 653-242002-12-2024 Consult note Author Gaudencio Romero [facility] April 03, 2023 2:07pm Note Date/Time April 03, 2023 2:07pm [facility] [address] [place] [address] Nephrology Consult Note Signed Patient: Hiram Madrid MR#: [id number] : 1935 Acct:[id number] Age/Sex: 87 / F Adm Date: 4 Loc: Room: [address] [place] [address] Type: ADM IN Attending Dr: Turner Frank DO Copies to: MD Gaudencio Pickering MD Michael R. Frings, DO~ Providers Consult Date: 04/03/23 Requesting Provider: Turner Frank DO Primary Care Provider: Addy Daniels MD [facility] Reason for Consult: Hyponatremia, sodium 117 on admission History of Present Illness: Ms. Madrid is an 87-year-old white female was transferred from [facility] on 04/02/23 for hyponatremia. Patient did complain [...] emergency room and subsequently was transferred to [facility] for further management. On arrival, patient was placed on gentle hydration with normal saline with 20 mEq potassium chloride at rate of75 cc/h. 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 Sodium has been running in the 120s. [...] has no ascites or edema. Lab at [facility] showed TSH 5.6, urine osmolality 298 and urine sodium 79 mmol/L Review of her medications showed that the patient was on amlodipine, losartan, potassium supplement and hydrochlorothiazide 25 mg daily. She also takes magnesium oxide 400 mg twice a day. No SSRI. Review of Systems Review of Systems All other systems reviewed & are negative unless noted below or in HPI [facility] Medical History (Updated 04/03/23 @ 14:00 [...] Surgical History (Updated 02/01/23 @ 14:30 by [email or web address] Ga) History of tonsillectomy Problem List clean-up per [...] 10 Mg Tablet) 10 mg PO DAILY [facility] Stop: 04/02/24 08:59 Last Admin: 04/03/23 08:58 Dose: 10 mg Docusate Sodium (Docusate 100 Mg Capsule) 200 mg PO BID PRN PRN Reason: Constipation Stop: 04/01/24 19:57 Docusate Sodium (Docusate 100 Mg Capsule) 200 mg PO BID [facility] Stop: 04/02/24 08:59 Last Admin: 04/03/23 08:58 Dose: Not Given Hydralazine HCl (Hydralazine 20 Mg/Ml Vial) 10 mg IV-PUSH Q4H PRN PRN Reason: if SBP > 185 Stop: 04/01/24 19:57 Potassium Chloride/Sodium Chloride (0.9 % Nacl-20 Meq Kcl) 1,000 mls @ 75 mls/hr IV .[id number] [facility] Stop: 04/01/24 20:29 Last Admin: 04/02/23 21:56 Dose: 75 mls/hr Levothyroxine Sodium (Levothyroxine 88 Mcg Tablet) 88 mcg PO DAILY@0630 [place] Stop: 04/02/24 06:29 Last Admin: 04/03/23 05:54 Dose: 88 mcg Losartan Potassium (Losartan 50 Mg Tablet) 100 mg PO DAILY [facility] Stop: 04/02/24 08:59 Last Admin: 04/03/23 08:58 Dose: 100 mg Pravastatin Sodium (Pravastatin 40 Mg Tablet) 80 mg PO DAILY [facility] Stop: 04/02/24 08:59 Last Admin: 04/03/23 [...] 01:50 04:48 MCHC 35.8 H (32.0-35.0) g/dL Butts # (Auto) 1.1 H (0.0-0.8) x10E3/uL Sodium [...] 04/03/23 Range/Units 08:00 10:38 MCHC (32.0-35.0) g/dL Butts # (Auto) (0.0-0.8) x10E3/uL Sodium 118 L* [...] stay Documented By: Gaudencio Romero MD 04/03/23 8220 Signed By: <Electronically signed by MD Gaudencio Romero> 04/03/23 1058 [facility] Work Phone: 1(546) 819-143402-11-2024 History and physical note Author Natividad Gregory [facility] April 02, 2023 8:22pm Note Date/Time April 02, 2023 8:06pm [facility] [address] [place] [address] Hospitalist H&P Signed Patient: Hiram Madrid MR#: [id number] : 1935 Acct:[id number] Age/Sex: 87 / F Adm Date: 4 Loc: Room: [address] [place] [address] Type: ADM IN Attending Dr: Lucy Lockhart MD Copies to: MD Lucy Pickering MD Ruta Semaskiene, MD~ HPI DATE OF EXAMINATION: 04/02/23 CHIEF COMPLAINT: Hyponatremia HISTORY OF PRESENT ILLNESS: 87 years old female was transferred from [facility] for hyponatremia. Itseems like the patient has [...] days ago she has been admitted to [facility] and discharged. Since then she still remains [...] in the computer system reviewed [facility] Medical History (Updated 04/02/23 @ 20:21 [...] Surgical History (Updated 02/01/23 @ 14:30 by [facility]) History of tonsillectomy Problem List clean-up per [...] <Electronically signed by Natividad Gregory MD> 04/02/232021 [facility] Work Phone: 1([phone]) 195-489411-22-2023 NoteNoted 7 beat run of NSVT on 1 week holter monitor, along with SVT, PVCs Recommended to continue coreg 25 mg bid, will place 30 day monitor, and obtain treadmill cardiolite stress test for ischemic evaluation.[facility]11-22-2023 NotePt reports that she has had 5 syncopal episodes since this Summer- some while having a BM, and other episodes while just up and walking.[facility]11-22-2023 NoteWill monitor with routine echocardiogram annually unless pt has concerning symptomsUnAv[facility]11-22-2023 NoteRecommended to continue ASA and pravastatinUnAv[facility]11-22-2023 Note Hypertension is stable Reviewed B/P log and typically in the mornings her b/p with well controlled 120's/70-80, and in the evenings can be up to 140/80 Continue all meds and will add toprolUnAv[facility] 01-11-2023 NoteContinue pravastatinUnAv[facility]11-22-2023 NoteWill monitor with routine echocardiogram annually unless pt has concerning symptomsUn[facility]11-22-2023 NoteWill monitor with routine echocardiogram annually unless pt has concerning symptomsUnAv[facility]11-22-2023 NotePatient here for 3 mo follow up valve disorder and carotid artery stenosis. She has had a few episodes of syncope since last visit. She recently wore Holter monitor. Says Dr. Daniels wants to add metoprolol but she does not want to add another medication. Review of Systems Cardiovascular: Positive for syncope. Hematologic/Lymphatic: Bruises/bleeds easily. All other systems reviewed and are negative.[facility] 01-11-2023 NoteUTP CARDIOLOGY PROGRESS NOTE HPI: [...] called and was evaluated in ED at [facility]. Admits she has had a couple syncopal episodes in the bathroom while having a BM- last one was at [employer]. States she also has had a couple while just up and walking- normal Day to Day activity. Daughter states that pt is usually out for about 1 minute. Of note patient was direct admitted to the [facility] end of August for electrolyte imbalances low sodium, low potassium, and acute anemia. She was evaluated at [facility] in October for ABD pain/ syncope, [...] The patient states she was shopping in [employer] when she felt the need to have [...] colonoscopy approximately 5 years ago at [facility]. HPI - Altered Mental Status General Chief [...] tablet 3 levothyroxine (Syn (more content not included)...[facility]11-02-2023 Hospital Discharge instructions Patient Education 12/22/2022 [...] transplant. Follow these instructions at home: Take yoya-pkv-ybvrdam and prescription medicines only as told by [...] provider. Document Revised: 05/26/2020 Document Reviewed: 05/26/2020 [employer] Patient Education 2022 [employer]. Follow Up Care 09/06/2022 13:10:43 With:ABHISHEK NOONAN, MIKAYLA Pereira, URL Address: [address] [place] [address] [phone] When: Unknown Comments:6 mos w/ renal fxn (per PCP) [facility] [place] 09-05-2023 NotePt message/ call that she is [...] appointment Lesly Alaniz NP Division of Cardiology, [facility]- [phone] Pager- [phone] Email- [email or web address]08-25-2023 NoteStable and non pitting currentlyUn[facility] 10-14-2022 NoteCurrently stable Pt to call for any recurrent syncope or concernsUnAv[facility]08-25-2023 NoteMild on recent echo No concerning symptomsUn[facility]08-25-2023 NoteContinue ASA and statinUn[facility]08-25-2023 NoteHypertension is uncontrolled 160/75- admits this is where her b/p is at home Increase coreg to 25 mg bid, continue losartan 100 mg, hydrochlorothiazide 25 mg, and amlodipine 10 mgUnAv[facility]08-25-2023 Note Continue pravastatinUn[facility]08-25-2023 NoteNo concerning symptoms Will continue to monitor with echocardiogramUnAv[facility] 10-14-2022 NoteNo concerning symptoms Will continue to monitor with echocardiogramUn[facility] 10-14-2022 NotePatient here c/o LE edema. Says today they aren't as bad, but she states they're hard and sometimes painful. She has not had lab work since [facility] stay in July 2022. She denies chest pain, lightheadedness, and palpitations. Review of Systems Cardiovascular: Positive for dyspnea on exertion and leg swelling. Hematologic/Lymphatic: Bruises/bleeds easily. All other systems reviewed and are negative.[facility] 10-14-2022 NoteUTP CARDIOLOGY PROGRESS NOTE HPI: [...] note patient was direct admitted to the [facility] end of August for electrolyte imbalances low [...] Stable and non pitting currently RTC 3-6 months[facility]02-13-[facility] Chief [...] p.o. twice dominic (more content not included)... [facility] + Plan note No data available for this section [facility] Future Appointments Appointment Date:06/29/2023 09:30:00 AM Scheduled Provider:MIKAYLA WEISS PA-C Location:[facility] Appointment Type:URO Office Visit [facility] Evaluation noteNo assessment information available [facility] Work Phone: Evaluation note* Diagnosis Onset Date Resolution Status HTN (hypertension) acute Hyponatremia acute [facility] Work Phone: Hospital Discharge instructions No data available for this section [facility] Additional Instructions Take Naprosyn [...] any fevers or chills or intractable nausea vomiting.[facility] Work Phone: Progress note No data available for this section [facility] Summary Purpose Family History No Family History Records Found Relationship Condition Age at Onset Recorded Date/T cullen father Unknown Not Specified Unknown Advance Directives No Advanced Directives Records FoundDocuments on File Type Date Recorded Patient School Crossing Guard Expl anation Advance Directives and Living Will Power of Presser Machine Latest Code Status on File Code Status Date Activated Date Inactivated Comments Full Code 11/05/2018 6:34 PM Full Code 11/04/2018 5:08 PM 11/05/2018 6:34 PM Documents on File Type Date Recorded Patient School Crossing Guard Expl anation Advance Directives and Livin g Will Advance Directives and Livin g Will 11/06/2018 1:08 AM AD info sheets Power of Presser Machine Latest Code Status on File Code Status [...] sent through Care Everywhere. * Back Pain (Mongolian) documented in this encounter* Discharge Instr - [...] at most local grocery stores, pharmacies, and [employer]-stores. ? If you have any questions about [...] treatment -- -- -- -- -- 11/15/18 1601 No, patient does not have an advance directive for healthcare treatment -- -- -- -- -- Admitting Physician: Mary Vega MD PCP: Calista Aceves MD Discharging Nurse: Discharging Hospital Unit/Room#: R238/R238-01 Discharging Unit Phone Number: Emergency Contact: Extended Emergency Contact Information Primary Emergency Contact: Madrid,Andrea [facility] Mobile Relation: Spouse Secondary Emergency Contact: Liliya Townsend Mobile Relation: Child Porcelain Enamel Laborer needed? No Past Surgical History: Past Surgical History: Procedure Laterality Date APPENDECTOMY BACK SURGERY CHOLECYSTECTOMY LUMBAR FUSION N/A 11/13/2018 PLIF L 3-4-5 DECOMPRESSION L3, L4 performed by Lenny Corral MD at [facility] Right Immunization History: There is [...] Assisted Dressing Independent Toileting Independent Feeding Independent Disability Insurance Hearing Officer Independent Med Delivery whole Wound Care Documentation [...] Video (Video Swallowing Test): {Done Not Done Date:[id number]} Treatments at the Time of Hospital Discharge: Respiratory Treatments: Oxygen Therapy: is not on home oxygen therapy. Ventilator: - No ventilator support Rehab Therapies: Physical Therapy and Occupational Therapy Weight Bearing Status/Restrictions: No weight bearing restirctions Other Medical Equipment (for information only, NOT a DME order): walker Other Treatments: Patient's personal belongings (please select all that are sent with patient): {[facility] DME Belongings:[id number]} RN SIGNATURE: MANAGEMENT/SOCIAL WORK SECTION Inpatient Status Date: Patient was admitted to Inpatient Acute Rehab 11/15/18 Readmission Risk Assessment Score: Readmission Risk Risk of Unplanned Readmission: 12 Discharging to Facility/ Agency Name: Karan Sosa Address: Fax: Dialysis Facility (if applicable) Name: Address: Dialysis Schedule: Phone: Fax: Senior Games Technician/Sail Cutter signature: ICIAN SECTION Prognosis: Good Condition at [...] Date: 11/20/2018 Patient Name: Hiram Madrid Account: [id number] : 1935 (83 y.o.) Room: [place] [address] Diagnosis: Impaired mobility and gait secondary to [...] [facility] Right Precautions: Restrictions/Precautions: Fall [...] to increasing pain) Transfer Assistance: Independent Active Timekeeper: Yes Mode of Transportation: Car 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 Leisure & Hobbies: Cooking, reading, needlepoint Additional Comments: 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, has been relying more on dtr and spouse due toworsening weakness past few weeks Current Functional Status: ADL Equipment Provided: Sock aid, Lens Cementer Feeding: Modified independent Grooming: Independent UE Bathing: [...] PM Yarely Gordon 11/20/2018 12:35 PM EDT [facility] MUSIC THERAPY Date: 11/20/2018 Patient [...] device (slide rail) Walk: 6 - Modified [place] Walks at least 150 feet with an ambulatory device, orthosis or prosthesis OR requires extra amount of time OR there is concern for safety Distance Walked: 200' Wheel Chair: 0 - Activity Not Assessed/Does Not Occur Stairs: 6 - Modified [place] Safely goes up and down at least [...] from Dr. Ellis Holguin D.O., PM&R Attending [phone] [facility] * Khanh White LPN - 11/19/2018 6:00 [...] Unit/Bed: R238/R238-01 Date of : 1935 Acct: [id number] Admitting Diagnosis: Impaired mobility [Z74.09] Spinal stenosis [...] and tentative discharge home tomorrow. Follows with college or university registrar in [place]. 11/18/18: called by staff certified nurse midwife regarding tachycardia. Pt was unaware of tachycardia. [...] [place], CHF or arrhythmia. Follows with a college or university registrar from [place] for carotid artery disease and cardiac murmur. [...] to DC home and F/U with regular college or university registrar as outpatient Attending Supervising Physician's Attestation Statement The patient is a 83 y.o. female. I have performed a history and physical examination of the patient. I discussed the case with the physician medical office assistant. I reviewed the patient's Past Medical [facility] NAME: Hiram Madrid : 1935 (83 y.o.) [...] Neuromuscular Education Neuromuscular Comments: Pizano Initiated: other VALUE ANALYSIS COORDINATOR finished it: pt scored a 42/56. Bed [...] education: 10 Therapeutic ex: 0 Mikayla Lindsey VALUE ANALYSIS COORDINATOR, 11/19/18 at 11:59 AM * Khanh White LPN - 11/19/2018 9:15 AM EDT Assessment completed. Medicated with Percocet for 10/10 pain in lower back and left leg. Removed old drsg from lower back. Noted a scant amount of serosanguinous drainage. Batson intact. Sutures at lower part of incision intact. Cleanse incision with NS. Applied Neosporin oint to incision. Applied DSD. No back brace per Dr Corral. Call light in reach. Will continue to monitor. * Lenny Corral MD - 11/19/2018 8:23 AM EDT Patient: Hiram Madrid Unit/Bed: R238/R238-01 Date of : 1935 Acct: [id number] Admitting Diagnosis: Impaired mobility [Z74.09] Spinal stenosis of lumbosacral region [M48.07] Admit Date: 11/15/2018 Hospital Day: 4 Current Medications: Scheduled Meds: cephALEXin 500 mg Oral 3 times per day akidlzkg-yckwypblkf-hhijwtdoi Topical BID enoxaparin 30 mg Subcutaneous Daily [...] woman from homewith spouse who presents to [facility] with the above deficits which impact [...] ms QTc Calculation (Bazett) 463 ms P Oxbow 58 degrees R Oxbow -11 degrees T Oxbow 5 degrees Xr Chest Standard (2 Vw) [...] from Dr. Ellis Holguin D.O., PM&R Attending [phone] [facility] * Rachael Graf LPN - 11/18/2018 4:39 [...] and no guarding. Musculoskeletal: Back: Urine Culture [[id number]] Collected: 11/15/18 1905 Order Status: Completed Specimen: Urine, clean catch Updated: 11/17/18 0728 Urine Culture, Routine No growth 24 hours Narrative: ORDERED BY: ADDY COKER SOURCE: Urine Clean Catch COLLECTED: 11/15/18 19:05 ANTIBIOTICS AT DI.: RECEIVED : 11/15/18 19:05 Culture Blood #2 [[id number]] Collected: 11/15/18 1637 Order Status: Completed Specimen: Blood Updated: 11/16/18 1815 Culture, Blood 2 No Growth to date. Any change in status will be called. Narrative: ORDERED BY: COKER, ADDY SOURCE: Blood COLLECTED: 11/15/18 16:37 ANTIBIOTICS AT DI.: RECEIVED : 11/15/18 16:42 Culture Blood #1 [[id number]] Collected: 11/15/18 1637 Order Status: Completed Specimen: [...] Unit/Bed: 38/R238-01 Date of : 1935 Acct: [id number] Admitting Diagnosis: Impaired mobility [Z74.09] Spinal stenosis [...] [facility] Right History reviewed. No pertinent [...] on phone: None Gets together: None Attends catholic service: None Active member of club or organization: None Attends meetings of clubs or organizations: None Relationship status: None Intimate partner violence: Fear of current or ex partner: None Emotionally abused: None Physically abused: None Forced sexual activity: None Other Topics Concern None Social History Narrative None Subjective/HPI: called by staff certified nurse midwife regarding tachycardia. Pt was unaware of tachycardia. [...] woman from homewith spouse who presents to [facility] with the above deficits which impact [...] up labs. Blanca Holguin D.O., PM&R Attending [phone] [place] [address] Tasha * Dana Craig, RN - 11/17/2018 5:45 PM EDT Monitor room called, said pt had about 18 sec run of svt up to 218; notified cardio. * Faye Summers PTA - 11/17/2018 4:07 PM EDT Physical Therapy Rehab Treatment Note Facility/Department: [facility] Room: [place] [address] NAME: Hiram Madrid : 1935 (83 y.o.) [...] [facility]: Hiram Madrid : 1935 [...] [facility] Room: [place] [address]- NAME: Hiram Madrid : 1935 (83 y.o.) [...] at below status. ADL Equipment Provided: Sock aid;Lens Cementer Grooming: Independent UE Bathing: Setup LE Bathing: [...] woman from homewith spouse who presents to [facility] with the above deficits which impact [...] consult,check dopplers Blanca Holguin D.O., PM&R Attending [phone] [facility] * Jessica Irvin, OTR/L - 11/16/2018 4:14 [...] from home with spouse who presents to [facility] with the above deficits which impact [...] Pain: Yes Objective The patient completed the [facility] Mental Status (UMS) Examination on this date, [...] 4:04 PM EDT Patient: Hiram Madrid [facility] Date of : 1935 Acct: [id number] Admitting Diagnosis: Impaired mobility [Z74.09] Spinal stenosis of lumbosacral region [M48.07] Admit Date: 11/15/2018 Hospital Day: 1 Current Medications: Scheduled Meds: [START ON 11/17/2018] enoxaparin 40 mg Subcutaneous Daily ehqrojnp-cyywviotrd-ovcygapso Topical BID docusate sodium 100 mg Oral [...] [place], CHF or arrhythmia. Follows with a college or university registrar from [place] for carotid artery disease and cardiac murmur. [...] [facility] Right Social History Social [...] on phone: None Gets together: None Attends catholic service: None Active member of club [...] 100 mg Oral BID Shyla Renato Vizcaino PROFESSOR OF THEATER - CARD GAME OPERATOR famotidine (PEPCID) tablet 20 mg 20 mg Oral BID Shyla Renato Vizcaino APRN - CARD GAME OPERATOR [START ON 11/16/2018] amLODIPine (NORVASC) tablet 10 mg 10 mg Oral Daily Shyla Renato Vizcaino APRN - CARD GAME OPERATOR [START ON 11/16/2018] aspirin EC tablet 81 mg 81 mg Oral Daily Shyla T EDY Vizcaino - CARD GAME OPERATOR cephALEXin (KEFLEX) capsule 500 mg 500 mg Oral 3 times per day Shyla T EDY Vizcaino - CARD GAME OPERATOR gabapentin (NEURONTIN) capsule 100 mg 100 mg Oral TID Shyla T EDY Vizcaino CNP [START ON 11/16/2018] levothyroxine (SYNTHROID) tablet 88 mcg 88 mcg Oral Daily Shyla T EDY Vizcaino- MK [START ON 11/16/2018] losartan (COZAAR) tablet 100 mg 100 mg Oral Daily Shyla T EDY Vizcaino - CARD GAME OPERATOR oxyCODONE-acetaminophen (PERCOCET) 5-325 MG per tablet [...] tele 7. GI/DVT proph * Mikayla Lindsey, VALUE ANALYSIS COORDINATOR - 11/16/2018 2:04 PM EDT Physical Therapy Rehab Treatment Note Facility/Department: [facility] NAME: Hiram Madrid : 1935 [...] education: 0 Therapeutic ex: 23 Mikayla Lindsey VALUE ANALYSIS COORDINATOR, 11/16/18 at 3:57 PM * Rhiannon Blank MICROBIOLOGY LAB ANALYST - 11/16/2018 11:21 AM EDT Speech Language [...] from home with spouse who presents to [facility] with the above deficits which impact [...] to increasing pain) Transfer Assistance: Independent Active Timekeeper: Yes Mode of Transportation: Car Type of [...] Coordinated: Yes Cognition Overall Cognitive Status: [facility] Cognition Comment: Comprehension: 7, Expression: [...] supervising OTR/L STIANO Lee/Lloyd * Jena Vega, VALUE ANALYSIS COORDINATOR - 11/16/2018 10:35 AM EDT Physical Therapy [...] 11/16/18 at 11:10 AM * Jessenia Gordon, NATIONAL ACCOUNT DIRECTOR - 11/16/2018 9:35 AM EDT [facility] RECREATIONAL THERAPY Initial Evaluation Date: [...] hearing in left ear) Patient seen at: [phone] Recreation Therapist received referral, chart reviewed and [...] services, its supported services and groups include: [facility], Pet Therapy, Leisure [...] REHAB Rehabilitation Initial Assessment: Physical Therapy [facility] NAME: Hiram Madrid : 1935 [...] [facility] Right Chart Reviewed: Yes Patient [...] to increasing pain) Transfer Assistance: Independent Active Timekeeper: Yes Additional Comments: 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, [...] side to side to initiate log roll grain broker goals grain broker goal 1: pt to be indep with bed mobility custodial goal 2: pt to be indep with bed transfers grain broker goal 3: pt to [id number] ft with supervision custodial goal 4: pt to navigate 4 steps with SBA custodial goal 5: 30/56 for Pizano balance testing ELOS: Plan weeks: 2 Therapy Time: Individual Time In 1000 Time Out 1030 Minutes 30 Lakisha Trevino, PT, 11/16/18 at 12:00 PM * Marybel Ackerman, [facility] - 11/15/2018 11:29 PM EDT Tashia Stark [...] puffs by inhalation with spacer [] Ipratropium [place] 0.02% unit dose by aerosol Ipratropium [place] MDI 2 puffs by inhalation with spacer [] Duoneb (Ipratropium + Albuterol) unit dose by aerosol Ipratropium MDI + Albuterol MDI 2 puffs byinhalation w/spacer MDI to Aerosol [] Albuterol Sulfate MDI Albuterol Sulfate 0.083% unit dose by aerosol [] Levalbuterol MDI 2 puffs by inhalation Levalbuterol 1.25 mg unit dose by aerosol [] Ipratropium [place] MDI by inhalation Ipratropium [place] 0.02% unit dose by aerosol [] Combivent [...] of lumbosacral region Impaired mobility Vasovagal syncope [facility] [place] [facility] [address] [id number] Chief Complaint and Reason for Visit Chief Complaint SYNCOPE Chief Complaint hyponatremia hyponatremia hyponatremia Reason for Visit HTN (hypertension) Hyponatremia Chief Complaint hyponatremia hyponatremia hyponatremia high bp Reason for Visit HTN (hypertension) Hyponatremia Chief Complaint hyponatremia hyponatremia hyponatremia high bp Unknown Reason for Visit HTN (hypertension) Hyponatremia Additional Source Comments INFORMATION SOURCE (unrecogn ized section and content) DATE CREATED AUTHOR 04/20/2018 [facility] DATE CREATED AUTHOR AUTHOR'S ORGANIZ ATION 11/24/2018 [facility] DATE CREATED AUTHOR AUTHOR'S ORGANIZ ATION 06/14/2022 [facility] DATE CREATED AUTHOR AUTHOR'S ORGANIZ ATION 01/13/2023 [facility] DATE CREATED AUTHOR AUTHOR'S ORGANIZ ATION 08/27/2023 [facility] DATE CREATED AUTHOR AUTHOR'S ORGANIZ ATION 09/28/2023 [facility] Reason for Visit (unrecogniz ed section and content) Reason Comments Back Pain Left low back pain r adiates down left leg. Pain flared up last monday Status Reason Specialty Diagnoses / Procedures Referre d By Contact Referred To Contact Diagnoses Intractable back pain Ellis, Lenny H., MD [address] [facility] [address], [address] [place] [address] [facility] Patient Care team informatio n (unrecognized [...] Gaudencio Romero MD Other Provider Active Start: [place] [place] 2023 End: April 06, 2023 KAMILA Escobar Other Provider Active Start: April 02, 2023 End: April 06, 2023 Fiona Magana MD Other Provider Active Start: [facility] [place] 2023 End: April 06, 2023 Cachorro Real MD Other Provider Active Star t: April 02, 2023 End: April 06, 2023 Warner Sood MD Other Provider Active Start: April 02, 2023 End: April 06, 2023 Boni Choi MD Other Provider Active Start: [facility] [place] 2023 End: April 06, 2023 Turner Frank [...] Member Role Status Dates Turner Doss MD [facility] Attending Provider Active Start: June 21, 2023 [...] BE BASED ON THE PRIMARY CLINICAL RECORDS. [employer] provides no warranty or guarantee of the accuracy or completeness of information in this document.
[2024-01-22] MEDS: BACITRACIN OINTMENT 28.4 GM TUBE 1 APPLIC TOPICAL (19:29)
[2024-01-22] MEDS: ACETAMINOPHEN 325 MG TABLET 650 MG PO (19:30)
[2024-01-22] MEDS: TRAMADOL HCL 50 MG TABLET PO (19:30)
[2024-01-22] MEDS: ADACEL DIPH,PERTUSS(ACELL),TET VAC/PF 0.5 ML ADULT SYRINGE IM (19:30)
[2024-01-22] MEDS: HYDRALAZINE HCL 25 MG TABLET PO (20:06)
[2024-01-22 20:50] LABS: Basophils Absolute Auto 0.1 10^3/uL (0.0-0.1); Basophils Percent Auto 0.6 % (0.2-2.0); Eosinophils Absolute Auto 0.1 10^3/uL (0.0-0.7); Eosinophils Percent Auto 0.3 % (0.9-7.0); Hematocrit 41.1 % (36.0-48.0); Hemoglobin 13.8 g/dL (12.0-16.0); Immature Granulocytes Abs Auto 0.08 10^3/uL (0.00-0.03); Immature Granulocytes Pct Auto 0.5 % (0.0-0.5); Lymphocytes Absolute Auto 2.4 10^3/uL (1.2-3.8); Lymphocytes Percent Auto 13.8 % (20.5-60.0); Mean Corpuscular HGB Conc 33.6 g/dL (29.9-35.2); Mean Corpuscular Hemoglobin 30.3 pg (26.7-34.0); Mean Corpuscular Volume 90.3 fL (81.0-99.0); Mean Platelet Volume 8.7 fL (9.5-13.5); Monocytes Absolute Auto 1.3 10^3/uL (0.3-0.8); Monocytes Percent Auto 7.1 % (1.7-12.0); Neutrophils Absolute Auto 13.6 10^3/uL (1.4-6.5); Neutrophils Percent Auto 77.7 % (43.0-75.0); Platelet Count 402 10^3/uL (150-450); Red Blood Count 4.55 10^6/uL (4.20-5.40); Red Cell Distribution Width 13.2 % (11.0-15.0); White Blood Count 17.5 10^3/uL (4.0-11.0)
[2024-01-22 21:01] LABS: BUN Creatinine Ratio 13.8; Calcium 9.6 mg/dL (8.5-10.1); Carbon Dioxide 25.8 mmol/L (21.0-32.0); Chloride 97 mmol/L (98-107); Estimated GFR (African America >60 (>=60 mL/min/1.73m^2); Estimated GFR (Non-African Ame >60 (>=60 mL/min/1.73m^2); Glucose 123 mg/dL (74-106); Potassium 3.8 mmol/L (3.5-5.1); Sodium 134 mmol/L (136-145)
[2024-01-22 21:04] LABS: INR 0.94
[2024-01-22] MEDS: LABETALOL HCL 20 MG/4 ML SYRINGE 10 MG IVP (21:05)
[2024-01-22] MEDS: ENALAPRILAT DIHYDRATE 1.25 MG/ML VIAL IV (21:48)
[2024-01-22] MEDS: FENTANYL CITRATE/PF 100 MCG/2 ML VIAL 25 MCG IV (21:54)
[2024-01-22] MEDS: ONDANSETRON PF 4 MG/2 ML VIAL IV (21:55)
== END 2024-01-22 23:30 | disposition short-term general hospital (02) ==
PROVIDERS: Physician Assistant; Emergency Provider Emergency Medicine; PCP Family Medicine
DX: S12.400A Unspecified displaced fracture of fifth cervical vertebra, initial encounter for closed fracture (principal); S60.512A Abrasion of left hand, initial encounter; S51.011A Laceration without foreign body of right elbow, initial encounter; S61.212A Laceration without foreign body of right middle finger without damage to nail, initial encounter; W01.0XXA Fall on same level from slipping, tripping and stumbling without subsequent striking against object, initial encounter; Z90.49 Acquired absence of other specified parts of digestive tract; S00.81XA Abrasion of other part of head, initial encounter; M48.02 Spinal stenosis, cervical region; M19.09 Primary osteoarthritis, other specified site; M54.2 Cervicalgia
CPT/HCPCS: 36415; 70450; 70486; 72125; 72128; 73130; 73564; 80048; 85025; 85610; 90471; 90715; 96374; 96375; 99285; J1920; J2405; J3010

== ENCOUNTER 2024-02-19 13:03 | Outpatient (REF) | payer MEDICARE, OTHER, SELFPAY ==
[2024-02-19 13:23] LABS: Basophils Absolute Auto 0.1 10^3/uL (0.0-0.1); Basophils Percent Auto 0.6 % (0.2-2.0); Eosinophils Absolute Auto 0.2 10^3/uL (0.0-0.7); Eosinophils Percent Auto 1.9 % (0.9-7.0); Immature Granulocytes Abs Auto 0.04 10^3/uL (0.00-0.03); Immature Granulocytes Pct Auto 0.5 % (0.0-0.5); Lymphocytes Absolute Auto 1.7 10^3/uL (1.2-3.8); Lymphocytes Percent Auto 21.4 % (20.5-60.0); Mean Corpuscular HGB Conc 37.5 g/dL (29.9-35.2); Mean Corpuscular Hemoglobin 35.5 pg (26.7-34.0); Mean Corpuscular Volume 94.7 fL (81.0-99.0); Mean Platelet Volume 9.8 fL (9.5-13.5); Monocytes Absolute Auto 0.7 10^3/uL (0.3-0.8); Monocytes Percent Auto 8.5 % (1.7-12.0); Neutrophils Absolute Auto 5.2 10^3/uL (1.4-6.5); Neutrophils Percent Auto 67.1 % (43.0-75.0); Platelet Count 345 10^3/uL (150-450); Red Blood Count 3.38 10^6/uL (4.20-5.40); Red Cell Distribution Width 13.7 % (11.0-15.0); White Blood Count 7.8 10^3/uL (4.0-11.0)
[2024-02-19 13:34] LABS: Alanine Aminotransferase 16 U/L (14-59); Albumin Level 3.2 g/dL (3.4-5.0); Alkaline Phosphatase 70 U/L (46-116); Anion Gap 9.2; Aspartate Amino Transferase 14 U/L (15-37); BUN Creatinine Ratio 14.1; Bilirubin Total 0.5 mg/dL (0.2-1.0); Carbon Dioxide 29.1 mmol/L (21.0-32.0); Chloride 98 mmol/L (98-107); Estimated GFR (African America >60 (>=60 mL/min/1.73m^2); Estimated GFR (Non-African Ame >60 (>=60 mL/min/1.73m^2); Globulin 3.2 g/dL; Glucose 88 mg/dL (74-106); Magnesium 1.8 mg/dL (1.8-2.4); Potassium 4.3 mmol/L (3.5-5.1); Sodium 132 mmol/L (136-145); Total Protein 6.4 g/dL (6.4-8.2)
== END 2024-02-19 13:04 | disposition home or self-care (01) ==
LOC: LAB 13:03
PROVIDERS: PCP Family Medicine; Visit Provider Family Medicine
DX: E87.1 Hypo-osmolality and hyponatremia (principal)
CPT/HCPCS: 36415; 80053; 83735; 85025

== ENCOUNTER 2024-02-27 12:59 | Outpatient (OUT) | payer MEDICARE, OTHER, SELFPAY ==
--- NOTE | 2024-02-27 13:03 | XR_ITS ---
[address] [address] Patient Name: HIRAM MADRID MRN: [id number] date: 1935 Sex: F Assigned Patient Location: [facility] Current Patient Location: LAB Accession/Order Number: [id number] Exam Date: 02/27/2024 13:25 Report Date: 02/27/2024 14:41 At the request of: MAMI DANIELS Procedure: XR DEXA axial skeleton EXAMINATION: XR DEXA axial skeleton HISTORY: Closed Nondisplaced Fracture Of Fifth Cervical Vertebra COMPARISON: DEXA bone densitometry 01/04/2012 TECHNIQUE: Dual-energy X-ray absorptiometry (DXA) was performed. FINDINGS: FOREARM ANALYSIS: Average bone mineral density is 0.531 g/cm2. T-score (standard deviation relative to young adult mean): -2.6 . Not previously evaluated. HIP ANALYSIS: Lowest bone mineral density is within the right femoral neck, 0.764 g/cm2. T-score (standard deviation relative to young adult mean): -2.0 . -21.8% change since prior study. XR/XR DEXA axial skeleton IMPRESSION: World Health Organization Classification: Osteoporosis - High Fracture Risk FRAX: Cannot be calculated. Pharmacologic treatment recommendations * No uniform recommendation applies to all patients. Management plans must be individualized. * Consider initiating pharmacologic treatment in postmenopausal women and men >= 50 years of age who have the following: Primary fracture prevention: * T-score <= - 2.5 at the femoral neck, total hip, lumbar spine, 33% radius (some uncertainty with existing data) by DXA. * Low bone mass (osteopenia: T-score between - 1.0 and - 2.5) at the femoral neck or total hip by DXA with a 10-year hip fracture risk >= 3% or a 10-year major osteoporosis-related fracture risk >= 20% (i.e., clinical vertebral, hip, forearm, or proximal humerus) based on the [place]-adapted FRAXregistered model. Secondary fracture prevention: * Fracture of the hip or vertebra regardless of BMD [4, 5]. * Fracture of proximal humerus, pelvis, or distal forearm in persons with low bone mass (osteopenia: T-score between - 1.0 and - 2.5). The decision to treat should be individualized in persons with a fracture of the proximal humerus, pelvis, or distal forearm who do not have osteopenia or low BMD [12, 13]. Jb MS, Gabby SL, Kaden KL, Chelle EM, Dylan KG, AJ, Quiana ES. The clinician's guide to prevention and treatment of osteoporosis. Osteoporos Int. 2021;33(10):3997-8303. doi: 10.1007/k37467-715-83136-n. Epub 2021Jun 17. Erratum in: Osteoporos Int. 2021Sep 16;: PMID: 27550094; PMCID: ELD5515882. Electronically authenticated by: JESUS BRUNO Date: 02/27/2024 14:41
== END 2024-02-27 13:00 | disposition home or self-care (01) ==
LOC: RAD 12:59
PROVIDERS: PCP Family Medicine; Visit Provider Family Medicine
DX: S12.401A Unspecified nondisplaced fracture of fifth cervical vertebra, initial encounter for closed fracture (principal); M80.88XA Other osteoporosis with current pathological fracture, vertebra(e), initial encounter for fracture
CPT/HCPCS: 77080

== ENCOUNTER 2024-03-26 10:56 | Emergency (ER) | payer MEDICARE, OTHER, SELFPAY ==
[2024-03-26 10:59] VITALS: BP 118/60; PULSE 53; TEMP 36.7; O2SAT 94; BMI 25.6
[2024-03-26 11:05] VITALS: O2SAT 91
[2024-03-26 11:10] VITALS: PULSE 52; O2SAT 92
--- NOTE | 2024-03-26 11:16 | ECG_ITS ---
The [facility] Test Date: 2024-03-26 Pat Name: HIRAM MADRID Department: Room: - Gender: Female Data Programmer: : 1935 Requested By: MAMI DANIELS Order Number: [id number] Reading MD: MAMI DANIELS Measurements Intervals Lucan Rate: 52 P: 66 SD: 180 QRS: 50 QRSD: 130 T: 0 QT: 474 QTc: 455 Interpretive Statements 1100 Sinus rhythm 2450 Right bundle branch block 4164 Twave abnormality, possible anterior ischemia 9150 abnormal ECG Compared to ECG 04/17/2023 10:00:59 Possible ischemia now present Electronically Signed On 03-29-2024 6:26:38 EST by MAMI DANIELS
--- NOTE | 2024-03-26 11:16 | XR_ITS ---
The [address] [address] Patient Name: HIRAM MADRID MRN: [id number] date: 1935 Sex: F Assigned Patient Location: ER Current Patient Location: ED.MAIN Accession/Order Number: [id number] Exam Date: 03/26/2024 11:20 Report Date: 03/26/2024 11:45 At the request of: RISA ABEBE Procedure: XR chest 1V EXAMINATION: XR chest 1V HISTORY: cough COMPARISON: No relevant comparison available. FINDINGS: LUNGS: No significant pulmonary parenchymal abnormalities. VASCULATURE: No increased pulmonary vasculature. PLEURA: No pneumothorax, effusion, or pleural thickening. CARDIAC: No cardiomegaly or cardiac silhouette abnormality. MEDIASTINUM: No visible mass or adenopathy. BONES: No fracture or visible bone lesion. OTHER: Negative. XR/XR chest 1V IMPRESSION: 1. No acute cardiopulmonary process. Electronically authenticated by: JESUS BRUNO Date: 03/26/2024 11:45
--- NOTE | 2024-03-26 11:18 | ED_ITS ---
HPI HPI - General Adult General Chief complaint: Dizziness Stated complaint: FLU LIKE SYMPTOMS Time Seen by Provider: 03/26/24 11:02 Source: patient Mode of arrival: Wheelchair History of Present Illness HPI narrative: 88-year-old female presents to the emergency department for chief complaint of not feeling well. She has been sick for 6 days and has symptoms of cough. She is coughing up some goodson phlegm. She has also been nauseous and has had a little bit of diarrhea. She is worried about having the flu. Related Data Home Medications ?Medication ?Instructions ?Recorded ?Confirmed levothyroxine 88 mcg tablet 88 mcg PO QDAY 08/10/22 03/26/24 losartan 100 mg tablet 100 mg PO QDAY 08/10/22 03/26/24 potassium chloride 20 mEq 20 meq PO TID 08/10/22 03/26/24 tablet,extended release pravastatin 80 mg tablet 80 mg PO QDAY 08/10/22 03/26/24 magnesium oxide 400 mg (241.3 mg 400 mg PO BID 02/10/23 03/26/24 magnesium) tablet multivitamin 1 tab PO DAILY 06/15/23 03/26/24 amlodipine 5 mg tablet 5 mg PO DAILY 03/26/24 03/26/24 carvedilol 12.5 mg tablet 25 mg PO BID 03/26/24 03/26/24 citalopram 20 mg tablet 20 mg PO DAILY 03/26/24 03/26/24 irbesartan 300 mg tablet 300 mg PO DAILY 03/26/24 03/26/24 Previous Rx's ?Medication ?Instructions ?Recorded pantoprazole 40 mg tablet,delayed 40 mg PO DAILY #30 tabs 08/17/22 release (Protonix) Allergies Allergy/AdvReac Type Severity Reaction Status Date / Time atorvastatin Allergy Severe HIVES Verified 01/22/24 18:28 prednisone Allergy Severe Rash Verified 01/22/24 18:28 ibuprofen (From Motrin) AdvReac Severe gi upset Verified 01/22/24 18:28 Opioid HPI Opioid Management Most Recent Opioid Data: Last Pain Scale 6 01/22/24 21:54 01/22/24 Last Pain Intensity 0 03/29/23 11:00 03/29/23 Review of Systems ROS Narrative A ten point review of systems is negative except as noted above. 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XXXA - Unspecified fall, initial encounter (ICD-10) COVID ?U07.1 - COVID-19 (ICD-10) Hyponatremia ?E87.1 - Hypo-osmolality and hyponatremia (ICD-10) Colitis ?K52.9 - Noninfective gastroenteritis and colitis, unspecified (ICD-10) GI bleed ?K92.2 - Gastrointestinal hemorrhage, unspecified (ICD-10) Elevated blood pressure reading ?R03.0 - Elevated blood-pressure reading, without diagnosis of hypertension (ICD-10) Back pain with history of spinal surgery ?M54.9 - Dorsalgia, unspecified (ICD-10) ?Z98.890 - Other specified postprocedural states (ICD-10) Syncope ?R55 - Syncope and collapse (ICD-10) Neuropathy ?G62.9 - Polyneuropathy, unspecified (ICD-10) Kidney stones ?N20.0 - Calculus of kidney (ICD-10) Hypertension ?I10 - Essential (primary) hypertension (ICD-10) Hyperlipidemia ?E78.5 - Hyperlipidemia, unspecified (ICD-10) Hydronephrosis ?N13.30 - Unspecified hydronephrosis (ICD-10) Hard of hearing ?H91.90 - Unspecified hearing loss, unspecified ear (ICD-10) Atrial fibrillation ?I48.91 - Unspecified atrial fibrillation (ICD-10) Arthritis ?M19.90 - Unspecified osteoarthritis, unspecified site (ICD-10) Acute hyponatremia ?E87.1 - Hypo-osmolality and hyponatremia (ICD-10) Orthostasis ?I95.1 - Orthostatic hypotension (ICD-10) Syncope due to orthostatic hypotension ?I95.1 - Orthostatic hypotension (ICD-10) Surgical History History of tonsillectomy ?Z90.89 - Acquired absence of other organs (ICD-10) H/O colonoscopy ?Z98.890 - Other specified postprocedural states (ICD-10) Hx of cholecystectomy ?Z90.49 - Acquired absence of other specified parts of digestive tract (ICD- 10) History of cataract extraction ?Z98.49 - Cataract extraction status, unspecified eye (ICD-10) History of salpingoophorectomy ?Z90.79 - Acquired absence of other genital organ(s) (ICD-10) ?Z90.721 - Acquired absence of ovaries, unilateral (ICD-10) History of appendectomy ?Z90.49 - Acquired absence of other specified parts of digestive tract (ICD- 10) Family History (Updated 06/15/23 @ 14:28 by Eliza Goncalves RN) Mother Family history of CHF (congestive heart failure) Father Lupus Brother Family history of myocardial infarction Family history of stroke Other Arthritis Family history of hypertension Social History Within the past year, how often did you have a drink containing alcohol: never Score interpretation: A score less than 3 is consistent with normal alcohol consumption. 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 Highest level of school completed/degree received: 9th grade Are you now , , , , never or living with a partner: In a typical week, how many times do you talk on the telephone with family, friends, or neighbors: 3 or more times per week How often do you get together with friends or relatives: 3 or more times per week How often do you attend roman catholic or christian services: 4 or more times per year Do you belong to any clubs or organizations such as roman catholic groups unions, fraternal or athletic groups, or school groups: yes Total score: 3 Score interpretation: A score of greater than or equal to 2 indicates the lowest level of social isolation. Little interest or pleasure in doing things: not at all Feeling down, depressed, or hopeless: not at all Feel stressed/tense/nervous/anxious/difficulty sleeping: not at all Life stressors: recent of family or friend Do you think of yourself as: straight/heterosexual Gender Identity: female Exam Narrative Exam Narrative: Nurses note and vital signs reviewed and patient is not hypoxic. General: The patient appears well and in no apparent distress. Patient is resting comfortably on cart. Skin: Warm, dry, no pallor noted. There is no rash noted. Head: Normocephalic, atraumatic. C-collar is in place. She had cervical vertebra fracture in January, no surgery Eye: Normal conjunctiva, no drainage Ears, Nose, Mouth, and Throat: oral mucosa is moist. Nares patent. Cardiovascular: Regular Rate and Rhythm Respiratory: Patient is in no distress, no accessory muscle use, lungs are clear to auscultation, no wheezing, rales or rhonchi Back: non-tender GI: Soft and nontender Musculoskeletal: The patient has no evidence of calf tenderness, no pitting edema, symmetrical pulses noted bilaterally Neurological: A&O, normal speech Psychiatric: Cooperative Constitutional Vital Signs, click to edit/add: Last Vital Signs Temp 98.0 F 03/26/24 10:59 Pulse 53 L 03/26/24 10:59 Resp 16 03/26/24 10:59 BP 118/60 03/26/24 10:59 Pulse Ox 94 L 03/26/24 10:59 O2 Del Method Room Air 03/26/24 10:59 Course Vital Signs Vital signs: Vital Signs Temperature 98.0 F 03/26/24 10:59 Pulse Rate 53 L 03/26/24 10:59 Respiratory Rate 16 03/26/24 10:59 Blood Pressure 118/60 03/26/24 10:59 Pulse Oximetry 94 L 03/26/24 10:59 Oxygen Delivery Method Room Air 03/26/24 10:59 Temperature 98.0 F 03/26/24 10:59 Pulse Rate 53 L 03/26/24 10:59 Respiratory Rate 16 03/26/24 10:59 Blood Pressure 118/60 03/26/24 10:59 Pulse Oximetry 94 L 03/26/24 10:59 Oxygen Delivery Method Room Air 03/26/24 10:59 Medical Decision Making MDM Narrative Medical decision making narrative: The patient has tested positive for influenza type A. The rest of her testing is essentially negative and she is able to be discharged home. Treatment diagnosis and follow-up were discussed with the patient and her daughter. Differential Diagnosis Differential Diagnosis: COVID, influenza, dehydration, viral illness Lab Data Lab results reviewed: Yes I reviewed the patient's lab results Labs: Lab Results 03/26/24 03/26/24 Range/Units 11:00 11:16 WBC 6.4 (4.0-11.0) 10^3/uL RBC 4.10 L (4.20-5.40) 10^6/uL Hgb 12.5 (12.0-16.0) g/dL Hct 36.3 (36.0-48.0) % MCV 88.5 (81.0-99.0) fL MCH 30.5 (26.7-34.0) pg MCHC 34.4 (29.9-35.2) g/dL RDW 13.5 (11.0-15.0) % Plt Count 297 (150-450) 10^3/uL MPV 9.1 L (9.5-13.5) fL Neut % (Auto) 63.7 (43.0-75.0) % Lymph % (Auto) 25.6 (20.5-60.0) % Imperial % (Auto) 7.3 (1.7-12.0) % Eos % (Auto) 2.8 (0.9-7.0) % Baso % (Auto) 0.3 (0.2-2.0) % Neut # (Auto) 4.1 (1.4-6.5) 10^3/uL Lymph # (Auto) 1.7 (1.2-3.8) 10^3/uL Imperial # (Auto) 0.5 (0.3-0.8) 10^3/uL Eos # (Auto) 0.2 (0.0-0.7) 10^3/uL Baso # (Auto) 0.0 (0.0-0.1) 10^3/uL Abs Immat Gran (auto) 0.02 (0.00-0.03) 10^3/uL Imm/Tot Granulo (auto) 0.3 (0.0-0.5) % Sodium 131 L (136-145) mmol/L Potassium 3.2 L (3.5-5.1) mmol/L Chloride 94 L (98-107) mmol/L Carbon Dioxide 28.4 (21.0-32.0) mmol/L Anion Gap 11.8 BUN 10.0 (7.0-18.0) mg/dL Creatinine 1.01 (0.55-1.02) mg/dL Est GFR ( Amer) >60 (>=60 mL/min/1.73m^2) Est GFR (Non-Af Amer) 52 L (>=60 mL/min/1.73m^2) BUN/Creatinine Ratio 9.9 Glucose 128 H (74-106) mg/dL Calcium 8.1 L (8.5-10.1) mg/dL Troponin I High Sens 17.2 (4.0-51.3) pg/mL Influenza Type A Ag Positive A Influenza Type B Ag Negative SARS-CoV-2 Ag (CV2AG) Negative (NEGATIVE) Imaging Data Chest x-ray: Radiologist's impression: ITS Impressions Chest X-Ray 03/26/24 11:16 IMPRESSION: 1. No acute cardiopulmonary process. Electronically authenticated by: JESUS BRUNO Date: 03/26/2024 11:45 ECG Data Attestation: I personally reviewed and interpreted this ECG as follows: (EKG on my interpretation shows sinus rhythm with a rate of 52 and no acute change) Discharge Plan Discharge Chief Complaint: Dizziness Clinical Impression: Influenza Patient Disposition: Home, Self-Care Time of Disposition Decision: 12:02 Condition: Good Mode of Transportation: Private Vehicle Prescriptions / Home Meds: No Action multivitamin Tablet 1 tab PO DAILY amlodipine 5 mg tablet 5 mg PO DAILY carvedilol 12.5 mg tablet 25 mg PO BID citalopram 20 mg tablet 20 mg PO DAILY irbesartan 300 mg tablet 300 mg PO DAILY levothyroxine 88 mcg tablet 88 mcg PO QDAY losartan 100 mg tablet 100 mg PO QDAY pravastatin 80 mg tablet 80 mg PO QDAY potassium chloride 20 mEq tablet extended release 20 meq PO TID pantoprazole [Protonix] 40 mg tablet,delayed release (DR/EC) 40 mg PO DAILY Qty: 30 11RF magnesium oxide 400 mg (241.3 mg magnesium) tablet 400 mg PO BID Print Language: Luxembourgish Instructions: Influenza (ED), Flu Shot (Vaccine) for Adults (ED) Referrals: Addy Clemente MD [Primary Care Provider] - 1 week
[2024-03-26 11:20] VITALS: PULSE 52; O2SAT 92
[2024-03-26 11:31] LABS: Basophils Percent Auto 0.3 % (0.2-2.0); Eosinophils Absolute Auto 0.2 10^3/uL (0.0-0.7); Eosinophils Percent Auto 2.8 % (0.9-7.0); Hematocrit 36.3 % (36.0-48.0); Hemoglobin 12.5 g/dL (12.0-16.0); Immature Granulocytes Abs Auto 0.02 10^3/uL (0.00-0.03); Immature Granulocytes Pct Auto 0.3 % (0.0-0.5); Lymphocytes Absolute Auto 1.7 10^3/uL (1.2-3.8); Lymphocytes Percent Auto 25.6 % (20.5-60.0); Mean Corpuscular HGB Conc 34.4 g/dL (29.9-35.2); Mean Corpuscular Hemoglobin 30.5 pg (26.7-34.0); Mean Corpuscular Volume 88.5 fL (81.0-99.0); Mean Platelet Volume 9.1 fL (9.5-13.5); Monocytes Absolute Auto 0.5 10^3/uL (0.3-0.8); Monocytes Percent Auto 7.3 % (1.7-12.0); Neutrophils Absolute Auto 4.1 10^3/uL (1.4-6.5); Neutrophils Percent Auto 63.7 % (43.0-75.0); Platelet Count 297 10^3/uL (150-450); Red Cell Distribution Width 13.5 % (11.0-15.0); White Blood Count 6.4 10^3/uL (4.0-11.0)
[2024-03-26] MEDS: ONDANSETRON PF 4 MG/2 ML VIAL IV (11:31)
[2024-03-26] MEDS: 0.9 % SODIUM CHLORIDE 500 ML IV (11:31)
--- OUTSIDE RECORDS SUMMARY | 2024-03-26 11:38 | XMS_ITS | CCD ---
Author Organization [facility] CliniSymt Care Team Providers Care Customer Account Specialist Name Role Phone PHYSICIAN, DEFAULT Admitting [...] Care Unavailable Calista Aceves Primary Care Provider [phone] CALISTA ACEVES Primary Care Physician ADELSO, DR PADILLA Consulting Unavailable JEREMIAH .DR BOLAÑOS Primary Care Unavailable ADELSO, DR PADILLA Attending Unavailable ADELSO, DR PADILLA Admitting Unavailable JEREMIAH .DR BOLAÑOS Primary Care Unavailable RAFA .TYLER Attending Kerry vailable LAKSHMIARTEMIO ., TYLER Admitting [...] Unavailable HOYousuf ., DR BOLAÑOS Attending Unavailable HOY ., [...] Daniels Primary Care Provider [phone] DO [place] [facility] Emergency Provider [facility] Addy Euceda Primary Care Physician VALERIE DARDEN Attending Unavailable LESLY ALANIZ Attending Unavailable LESLY ALANIZ Attending Unavailable MD Addy Daniels Primary Care Provider [phone] MD Lucy Lockhart Admit Provider MD Gaudencio Romero Other Provider KAZ Pearce-C Katie Other Provider Unavailable MD Fiona Magana Other Provider MD Cachorro Real Other Provider MD Warner Sood Other Provider MD Boni Choi Other Provider DO Turner Frank Attending Provider [phone] MD Turner Nielsen Emergency Provider MD Addy Daniels Primary Care Provider [phone] MD Lucy Lockhart Admit Provider MD Gaudencio Romero Other Provider Ramses, TALENT ACQUISITION ASSOCIATE-C Katie Other Provider Unavailable MD Fiona Magana Other Provider MD Cachorro Real Other Provider MD Warner Sood Other Provider MD Boni Choi Other Provider DO Turner Frank Attending Provider MD Turner Nielsen Emergency Provider MD Turner Doss Attending Provider [phone] Turner DOSS Attending Unavailable Addy Daniels Referring Unavailable Turner DOSS Attending Unavailable Turner DOSS Attending Unavailable MIKAYLA WEISS Attending Unavailable MIKAYLA WEISS Attending Unavailable Addy Daniels MD Primary Care Provider [phone] Niki Owusu MD Attending Provider Niki Owusu Admitting Unavailable Niki Owusu Attending Unavailable Addy Daniels Primary Care Unavailable Niki Owusu Attending Unavailable Adalid Aaron Consulting Unavailable Son Dean Admitting Unavailable Addy Daniels Primary Care Unavailable Kristofer Aceves Consulting Unavailable Soo Carvalho Consulting Unavailable Lg Fu Consulting Unavailable Gaudencio Romero Consulting Unavailable Addy Daniels Primary Care Unavailable Lucy Lockhart Admitting Unavailable Turner Frank Attending Unavailable Katie Pearce Consulting Unavailable Fiona Magana Consulting Unavailable Cachorro Real Consulting Unavailable Warner Sood Consulting Unavailable Boni Choi Consulting Unavailable Turner Nielsen Admitting Unavailable Turner Nielsen Attending Unavailable Addy Daniels Primary Care Unavailable Turner Doss Admitting Unavailable Turner Doss Attending Unavailable Addy Daniels MD Attending Provider Allergies Allergy Classification Reported Allergen(s) Allergy Type Date of Onset Reaction(s) Facility (13 sources) predniSONE; Translations: [prednisone] Drug Allergy 8 Hives, Eruption of skin (disorder) [place] (2 sources) predniSONE Drug Allergy 7 [facility] (11 sources) atorvastatin; Translations: [atorvastatin] Drug Allergy 3 Unknown (qualifier value), Weal (disorder) [facility] Comment on above: Onset Date: 02/20/19 22 (4 sources) Ibuprofen; Translations: [ibuprofen] Drug Allergy Unknown (qualifier value), Stomach ache (finding) [facility] (7 sources) Corticosteroids; Translations: [Corticosteroids (Glucocorticoids )] Allergy to substance 3 Unknown Reaction [facility] Comment on above: Onset Date: 02/27/19 18 (1 source) atorvastatin Drug Allergy 5 [facility] (1 source) predniSONE Drug Allergy 5 [facility] Medications Current Medications Medication Drug [...] in 24 hours. acetaminophen 325 mg / HYDROcodone bitartrate 5 mg oral tablet (3 sources) Opioid Agonist Start: 01-25-2024 take 1 tablet by mouth every eight hours as needed for pain Hydrocodone-Acetami nophen 5-325 mg Tablet Active 1 TAB PO Every 8 hours as needed for Pain 15 5 January 25, 2024 acetaminophen 325 mg / oxyCODONE hydrochloride 5 [...] nebulizer solution amLODIPine 10 mg oral tablet (19 sources) Dihydropyridine Calcium Channel Yadira Start: 08-06-2018 End: 04-06-2023 take 1 tablet by mouth once daily Amlodipine (Norvasc) 10 mg Tablet Active 1 TAB PO Daily April 06, 2023 12:04pm aspirin 81 mg oral capsule (12 sources) Platelet Aggregation Inhibitor, Nonsteroidal Anti-inflammatory Drug [...] Antibacterial, Polymyxin-class Antibacterial Start: 11-16-2018 End: 11-18-2018 wuodhyoj-ytsbkttmpc-seodbdzd n (NEOSPORIN) ointment carvedilol 12.5 mg oral tablet (6 sources) alpha-Adrenergic Yadira, beta-Adrenergic Yadira Start: 01-23-2024 take 1 tablet by mouth once daily Carvedilol 12.5 mg tablet Active 12.5 MG PO Daily January 23, 2024 12:00am Start: 05-03-2023 take 1 tablet by neil twice daily carvedilol 6.25 mg Tab 6.25 mg = 1 tab(s), Oral, BID, Refills(s) 0 Start Date: 05/03/23 Status: Ordered Start: 08-10-2022 carvedilol Ora l Start Date: 08/10/22 Status: Ordered cinnamon oil liquid 1 drop (1 source) Start: 11-15-2018 cinnamon oil liquid 1 drop citalopram 20 mg oral tablet (5 sources) Serotonin Reuptake Inhibitor Start: 01-23-2024 take 1 tablet by mouth once daily Citalopram 20 mg tablet Active 20 MG PO Daily January 23, 2024 12:00am Start: 04-19-2023 [facility] 10 mg Tab 10 mg = 1 tab(s), Oral, Daily, Refills(s) 0 Start Date: 04/19/23 Status: Ordered docusate sodium 100 mg oral capsule (4 sources) Start: 01-25-2024 take 1 capsule by mo [facility] twice daily as needed for constipation Docusate Sodium 100 mg Capsule Active 100 MG PO Twice daily as needed for Constipation January 25, 2024 12:00am Start: 11-15-2018 take 100 mg by mouth twice dejon ly 100 mg, Oral, 2 TIMES DAILY, First [...] guaiFENesin (MUCINEX) extended release tablet 600 mg irbesartan 300 mg oral tablet (3 sources) Angiotensin 2 Receptor Yadira Start: 01-23-2024 take 1 tablet by mouth once daily Irbesartan 300 mg tablet Active 300 MG PO Daily January 23, 2024 12:00am lactulose 667 mg/ml oral solution (1 source) Osmotic Laxative Start: 11-17-2018 lactulose (CHRONULAC) 10 GM/15ML solution 20 g levothyroxine sodium 0.088 mg oral tablet (15 sources) l-Thyroxine Start: 08-09-2022 take 1 tablet [...] Discharge) losartan potassium 100 mg oral tablet (14 sources) Angiotensin 2 Receptor Yadira Start: 11-16-2018 take 100 mg by mouth once daily 100 mg, Oral, DAILY, First dose on Mon11/16/18 at 0900 Start: 11-05-2018 losartan (COZA AR) tablet 100 mg Start: 08-06-2018 End: 01-23-2024 take 1 tablet by mouth once daily Losartan 100 mg Tablet Discontinued 1 TAB PO Daily August 05, 2018 11:00pm January 23, 2024 12:30am magnesium oxide 400 mg oral tablet (8 sources) Start: 04-19-2023 take 1 tablet by mouth three times daily magnesium oxide 400 mg Tab 400 mg = 1 tab(s), Oral, TID, Refills(s) 0 Start Date: 04/19/23 Status: Ordered Start: 04-02-2023 take 1 tablet by neil th twice daily as needed for constipation Magnesium Oxide 400 mg (241.3 mg magnesium) tablet Active 400 MG PO Twice daily as needed for constipation April 02, 2023 12:00am 1 ml morphine sulfate 4 mg/ml cartridge (2 sources) Opioid Agonist Start: 11-04-2018 morphine injec tion 4 mg Start: 11-04-2018 End: 11-04-2018 morphine (PF) injection 4 mg ondansetron 4 mg oral tablet (9 sources) Serotonin-3 Receptor Antagonist Start: 08-05-2022 take 1 tablet by mouth once daily as needed for nausea and vomiting Ondansetron Hcl 4 mg tablet Active 4 MG PO Daily as needed for nausea and vomiting 5 August 04, 2022 11:00pm Start: 11-05-2018 4 mg, Intraven ous, EVERY 6 HOURS PRN, Nausea, Starting 11/05/18 at 1830 Start: 11-04-2018 End: 11-04-2018 ondansetron (ZOFRAN) injecti on 4 mg pantoprazole 40 mg delayed release oral tablet (8 sources) Proton Pump Inhibitor Start: 04-04-2023 take 1 tablet by mouth once daily Pantoprazole 40 mg tablet,delayed release (DR/EC) Active 40 MG PO Daily at 629April 04, 2023 12:00am polyethylene glycol 3350 26862 mg powder for oral solution (1 source) Osmotic Laxative Start: 11-15-2018 polyethylene glycol (GLYCOLAX) packet 17 g Potassium Chloride (15 sources) Start: 08-10-2022 Potassium Chlo ride (Wdo-Awya-Hwx 10) 20 mEq, Oral, TID Start Date: 08/10/22 Status: Ordered Start: 08-10-2022 Potassium Chlo ride (Ybs-Nmen-Ihh 10) mEq, Oral, BID Start Date: 08/10/22 Status: Ordered Start: 11-05-2018 End: 11-05-2018 potassium chloride (KLOR-CON M) extended release tablet 40 mEq Start: 11-04-2018 20 mEq, Oral, 2 TIMES DAILY, First dose on Aura 11/15/18 at 2100 Dilute with at least 4 ounces of cold water. May further dilute if GI adverse effects occur. Start: 08-06-2018 take 1 tablet by neil th three times daily Potassium Chloride (Klor-Con M20) 20 mEq Tablet,Er Particles/Crystals Active 1 TAB PO Three times daily August 05, 2018 11:00pm Start: 08-06-2018 take 1 tablet by neil th once daily Potassium Chloride (Klor-Con M20) 20 mEq Tablet,Er Particles/Crystals Active 1 TAB PO Daily August 06, 2018 12:00am pravastatin sodium 80 mg oral tablet (14 sources) HMG-CoA Reductase Inhibitor Start: 08-06-2018 take 1 tablet by mouth once daily Pravastatin 80 mg Tablet Active 1 TAB PO Daily August [...] (2 times per day), First dose on Mon11/04/18 at 2100 Start: 11-04-2018 take 10 mL intraveno us route once as needed 10 mL, Intravenous, PRN, Line Care, After every IV line use, Starting Mon11/05/18 at 1830 Completed/Discontinued Medications Medication Drug Class(es) Dates Sig (Normalized) Sig (Original) cephalexin 500 mg oral capsule (10 sources) Cephalosporin Antibacterial Start: 08-05-2022 End: 04-02-2023 take 1 capsule by mouth twice daily Cephalexin 500 mg capsule Discontinued 500 MG PO Twice daily 14 [...] procedure, # 2 tab(s), Refills(s) 0, Pharmacy: [facility] 1985, 155, cm, 08/10/22 9:03:00 EDT, Height/Length Dosing, 65, kg, 08/10/22 9:03:00 EDT, Weight Dosing Start Date: 08/30/22 Status: Ordered gadoteridol (PROHANCE) injection 15 mL (1 source) Start: 11-05-2018 End: 11-05-2018 gadoteridol (PROHANCE) injection 15 mL hydroCHLOROthiazide 25 mg oral tablet (7 sources) Thiazide Diuretic Start: 04-02-2023 End: 04-06-2023 take 1 tablet by mouth once daily Hydrochlorothiazide 25 mg tablet Discontinued 25 MG PO Daily April 02, [...] 11/19/2018 Discontinued naproxen 500 mg oral tablet (7 sources) Nonsteroidal Anti-inflammatory Drug Start: 08-05-2022 End: 04-02-2023 take 1 tablet by mouth twice daily as needed for pain Naproxen (Naprosyn) 500 mg tablet Discontinued 500 MG PO Twice daily as needed for pain 10 August 04, 2022 11:00pm April 02, 2023 6:53pm oxyCODONE hydrochloride 5 mg oral tablet (7 sources) Opioid Agonist Start: 08-05-2022 End: 04-02-2023 take 1 tablet by mouth once daily as needed for pain Oxycodone 5 mg tablet Discontinued 5 MG PO Daily as needed for severe pain (scale score 7-10) 06 24August 05, 2022 April 02, 2023 [...] mEq tamsulosin hydrochloride 0.4 mg oral capsule (7 sources) alpha-Adrenergic Yadira Start: 08-05-2022 End: 04-02-2023 [...] Problem Date Documented Date Episodic/Chronic Abdominal pain (7 sources) Abdominal pain; Translations: [Unspecified abdominal pain] 08-05-2022 Episodic Comment on above: Problem List clean-u p per request of Phys. EHR Cmte Acute and unspecified renal failure (7 sources) Acute renal failure syndrome; Translations: [Acute kidney failure, unspecified] Onset: 01-24-2024 02-02-2024 Episodic Calculus of urinary tract (10 sources) Kidney stone; Translations: [Calculus of kidney] 08-05-2022 Episodic Comment on above: Problem List clean-u p per request of Phys. EHR Cmte Cardiac dysrhythmias (3 sources) Atrial fibrillation 08-10-2022 Chronic Conduction disorders (2 sources) Right bundle branch block 04-19-2023 Chronic Diseases of white blood cells (8 sources) Elevated white blood cell count, unspecified; Translations: [Leukocytosis] Onset: 12-31-2021 02-02-2024 Chronic Disorders of lipid metabolism (12 sources) Pure hypercholesterolemia, unspecified; Translations: [Hyperlipidemia, unspecified] Onset: 08-06-2021 Chronic E Codes: Fall (7 sources) Fall in home; Translations: [Unspecified fall, initial encounter] Onset: 01-24-2024 02-02-2024 Episodic E Codes: Place of occurrence (1 source) Unspecified place in unspecified non-institutional (private) residence as the place of occurrence of the external cause; Translations: [Unspecified place in unspecified non-institutional (private) residence as the place of occurrence of the external cause] Onset: 01-24-2024 Episodic Essential hypertension (20 sources) Essential (primary) hypertension; Translations: [Hypertensive disorder] Onset: 07-28-2021 Chronic Comment on above: Problem List clean-u p per request of Phys. EHR Cmte Fluid and electrolyte disorders (20 sources) Hypo-osmolality and hyponatremia; Translations: [Dehydration] Onset: 11-09-2021 Episodic Comment on above: Problem List clean-u p per request of Phys. 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 EHR Cmte Neoplasms of unspecified nature or uncertain behavior [...] (3 sources) Hearing loss 08-10-2022 Chronic Other fractures (3 sources) Fracture of fifth cervical vertebra; Translations: [Unspecified displaced fracture of fifth cervical vertebra, initial encounter for closed fracture] 02-02-2024 Episodic Other fractures (4 sources) Unspecified displaced fracture of fifth cervical vertebra, initial encounter for closed fracture; Translations: [Closed fracture of fifth cervical vertebra] Onset: 03-01-2024 01-24-2024 Episodic Other fractures (1 source) Other nondisplaced fracture of fifth cervical vertebra, initial encounter for closed fracture; Translations: [Other nondisplaced fracture of fifth cervical vertebra, initial encounter for closed fracture] Onset: 01-24-2024 Episodic Other fractures (1 source) Fracture of cervical spine; Translations: [Fracture of neck, unspecified, initial encounter] 03-06-2024 Episodic Other fractures (1 source) Fracture of neck, unspecified, initial encounter; Translations: [Closed fracture of cervical vertebra, unspecified level] 03-06-2024 Episodic Other injuries and conditions due to external [...] [Lumbar spondylosis] Onset: 11-13-2018 11-13-2018 Chronic Syncope (12 sources) Vasovagal syncope; Translations: [Syncope] Onset: 04-04-2022 11-19-2018 Episodic Comment on above: Problem List clean-u p per request of Phys. EHR Cmte Thyroid disorders (3 sources) Hypothyroidism, unspecified; Translations: [...] Onset: 12-31-2021 Episodic 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 source) care home (current) use of aspirin; Translations: [GROUP HOME CURRENT USE OF ASPIRIN] Onset: 12-31-2021 Episodic 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 source) Other rodent exterminator (current) drug therapy; Translations: [OTH GROUP HOME [...] Test Name Value Interpretation Reference Range Facility Alanine aminotransferase [En zymatic activity/volume] in Serum or PlasmaOrdered By: Addy Daniels on 03-25-2024 ALT [Catalytic activity/Vol] Alanine aminotransferase [Enzymatic activity/volume] in Serum or Plasma 7-52 [facility] Albumin [Mass/volume] in Ser um or Plasma by Bromocresol green (BCG) dye binding methoOrdered By: Addy Daniels on 03-25-2024 Albumin BCG dye [Mass/Vol] Albumin [Mass/volume] in Serum or Plasma by Bromocresol green (BCG) dye binding metho 3.5-5.7 [facility] Alkaline phosphatase [Enzyma tic activity/volume] in Serum or PlasmaOrdered By: Addy Daniels on 03-25-2024 ALP [Catalytic activity/Vol] Alkaline phosphatase [Enzymatic activity/volume] in Serum or Plasma 34-104 [facility] Aspartate aminotransferase [ Enzymatic activity/volume] in Serum or PlasmaOrdered By: Addy Daniels on 03-25-2024 AST [Catalytic activity/Vol] Aspartate aminotransferase [Enzymatic activity/volume] in Serum or Plasma 13-39 [facility] Basophils Auto (Bld) [#/Vol] Ordered By: Addy Daniels on 03-25-2024 Basophils (Bld) [#/Vol] Automated basoph il count 0.0-0.2 [facility] Basophils/100 WBC Auto (Bld) Ordered By: Addy Daniels on 03-25-2024 Basophils/100 WBC (Bld) Automated basoph il % . [facility] Bilirubin.total [Mass/volume ] in Serum or PlasmaOrdered By: Addy Daniels on 03-25-2024 Bilirubin [Mass/Vol] Bilirubin.total [Mass/volume] in Serum or Plasma 0.3-1.0 [facility] Calcium [Mass/volume] in Ser um or PlasmaOrdered By: Addy Daniels on 03-25-2024 Calcium [Mass/Vol] Calcium [Mass/volume] in Serum or Plasma Low 8.6-10.3 [facility] Carbon dioxide, total [Moles /volume] in Serum or PlasmaOrdered By: Addy Daniels 03-25-2024 CO2 [Moles/Vol] Carbon dioxide, total [Moles/volume] in Serum or Plasma 21.0-31.0 [facility] Chloride [Moles/volume] in S willa or PlasmaOrdered By: Addy Daniels 03-25-2024 Chloride [Moles/Vol] Chloride [Moles/volume] in Serum or Plasma Low 98-107 [facility] Creatinine [Mass/volume] in Serum or PlasmaOrdered By: Addy Daniels 03-25-2024 Creatinine [Mass/Vol] Creatinine [Mass/volume] in Serum or Plasma 0.60-1.20 [facility] Eosinophils Auto (Bld) [#/Vo l]Ordered By: Addy Daniels 03-25-2024 Eosinophils (Bld) [#/Vol] Automated eosinophil count 0.0-0.45 [facility] Eosinophils/100 WBC Auto (Bl d)Ordered By: Addy Daniels on 03-25-2024 Eosinophils/100 WBC (Bld) Automated eosinophil % . [facility] Erythrocyte distribution wid th Auto (RBC) [Ratio]Ordered By: Addy Daniels 03-25-2024 Erythrocyte distribution width (RBC) [Ratio] Erythrocyte distribution width [Ratio] by Automated count 11.9-15.3 [facility] Globulin Calc (S) [Mass/Vol] Ordered By: Addy Daniels 03-25-2024 Globulin (S) [Mass/Vol] Serum globulin measurement by calculation (mass/volume) [facility] Glucose [Mass/volume] in Ser um or PlasmaOrdered By: Addy Daniels on 03-25-2024 Glucose [Mass/Vol] Glucose [Mass/volume] in Serum or Plasma High 70-100 [facility] Comment on above: ADA recommended refe rence rangeRandom Glucose Reference Range is dependent on time and content of last meal. Glucose of more than 200 mg/dL in a nonstressed, ambulatory subject supports the diagnosis of Diabetes Mellitus. Hematocrit Auto (Bld) [Volum e fraction]Ordered By: Addy Daniels on 03-25-2024 Hematocrit (Bld) [Volume fraction] Hematocrit [Volume Fraction] of Blood by Automated count 34.0-46.4 [facility] Hemoglobin [Mass/volume] in BloodOrdered By: Addy Daniels on 03-25-2024 Hemoglobin (Bld) [Mass/Vol] Hemoglobin [Mass/volume] in Blood 11.8-15.4 [facility] Leukocytes [#/volume] correc sofiya for nucleated erythrocytes in Blood by Automated counOrdered By: Addy Daniels on 03-25-2024 WBC corrected for nucl RBC Auto (Bld) [#/Vol] Leukocytes [#/volume] corrected for nucleated erythrocytes in Blood by Automated coun 3.8-11.6 [facility] Lymphocytes Auto (Bld) [#/Vo l]Ordered By: Addy Daniels on 03-25-2024 Lymphocytes (Bld) [#/Vol] Lymphocytes [#/volume] in Blood by Automated count 1.00-4.8 [facility] Lymphocytes/100 WBC Auto (Bl d)Ordered By: Addy Daniels on 03-25-2024 Lymphocytes/100 WBC (Bld) Lymphocytes/100 leukocytes in Blood by Automated count . [facility] MCH Auto (RBC) [Entitic mass ]Ordered By: Addy Daniels on 03-25-2024 MCH (RBC) [Entitic mass] MCH [Entitic ma ss] by Automated count 24.7-34.3 [facility] MCHC Auto (RBC) [Mass/Vol]Or dered By: Addy Daniels on 03-25-2024 MCHC (RBC) [Mass/Vol] MCHC [Mass/volume] by Automated count High 32.0-35.0 [facility] MCV Auto (RBC) [Entitic vol] Ordered By: Addy Daniels on 03-25-2024 MCV (RBC) [Entitic vol] MCV [Entitic volume] by Automated count 80-100 [facility] Monocytes Auto (Bld) [#/Vol] Ordered By: Addy Daniels on 03-25-2024 Monocytes (Bld) [#/Vol] Automated blood monocyte count 0.0-0.8 [facility] Monocytes/100 WBC Auto (Bld) Ordered By: Addy Daniels on 03-25-2024 Monocytes/100 WBC (Bld) Automated monocy te % . [facility] Neutrophils Auto (Bld) [#/Vo l]Ordered By: Addy Daniels on 03-25-2024 Neutrophils (Bld) [#/Vol] Neutrophils [#/volume] in Blood by Automated count 1.8-7.7 [facility] Neutrophils/100 WBC Auto (Bl d)Ordered By: Addy Daniels on 03-25-2024 Neutrophils/100 WBC (Bld) Automated neutrophil % . [facility] No Panel InformationOrdered By: Addy Daniels on 03-25-2024 Estimated GFR (CKD-EPI) > 60.0 mL/Min [facility] Creatinine Clearance (Chem N/A [facility] Nucleated erythrocytes [Pres ence] in Blood by Automated countOrdered By: Addy Daniels on 03-25-2024 Nucleated RBC Auto Ql (Bld) Nucleated erythrocytes [Presence] in Blood by Automated count 0-0.5 [facility] Platelet mean volume Auto (B ld) [Entitic vol]Ordered By: Addy Daniels on 03-25-2024 Platelet mean volume (Bld) [Entitic vol] Platelet mean volume [Entitic volume] in Blood by Automated count 6.3-10.7 [facility] Platelets Auto (Bld) [#/Vol] Ordered By: Addy Daniels on 03-25-2024 Platelets (Bld) [#/Vol] Platelets [#/volume] in Blood by Automated count 150-450 [facility] Potassium [Moles/volume] in Serum or PlasmaOrdered By: Addy Daniels on 03-25-2024 Potassium [Moles/Vol] Potassium [Moles/volume] in Serum or Plasma 3.5-5.1 [facility] Protein [Mass/volume] in Ser um or PlasmaOrdered By: Addy Daniels on 03-25-2024 Protein [Mass/Vol] Protein [Mass/volume] in Serum or Plasma Low 6.4-8.9 [facility] RBC Auto (Bld) [#/Vol]Ordere d By: Addy Daniels on 03-25-2024 RBC (Bld) [#/Vol] Erythrocytes [#/volume] in Blood by Automated count 3.60-5.00 [facility] Serum or plasma albumin/glob ulin mass ratioOrdered By: Addy Daniels on 03-25-2024 Albumin/Globulin [Mass ratio] Serum or plasma albumin/globulin mass ratio [facility] Serum or plasma anion gap de terminationOrdered By: Addy Daniels on 03-25-2024 Anion gap [Moles/Vol] Serum or plasma anion gap determination 6.0-15.0 [facility] Sodium [Moles/volume] in Ser um or PlasmaOrdered By: Addy Daniels on 03-25-2024 Sodium [Moles/Vol] Sodium [Moles/volume] in Serum or Plasma Low 136-145 [facility] [facility] Urea nitrogen [Mass/volume] in Serum or PlasmaOrdered By: Addy Daniels on 03-25-2024 Urea nitrogen [Mass/Vol] Urea nitrogen [Mass/volume] in Serum or Plasma 7-25 [facility] WBC Auto (Bld) [#/Vol]Ordere d By: Addy Daniels on 03-25-2024 WBC (Bld) [#/Vol] Leukocytes [#/volume] in Blood by Automated count 3.8-11.6 [facility] X-ray reportOrdered By: Chirag Munguia on 03-01-2024 Study report [facility] Main [address] [address] XRay Report Signed Patient: Hiram Madrid MR#: [id number] : 1935 Acct:[id number] Age/Sex: 88 / F ADM Date: 5 Loc: XD Room: Type: REG CLI Attending Dr: Niki Owusu MD Copies to: Niki Owusu MD~ Ordering Provider: Niki Owusu MD Date of Service: 03/01/24 XR/XR cervical spine 2V: f/u C5 fracture CERVICAL SPINE 2 views: CLINICAL HISTORY: C5 fracture, follow-up COMPARISON: CT from [facility] 01/21/2025, MRI cervical spine 01/24/2024 FINDINGS: There is reversal of the normal cervical lordosis. There is is minimal anterolisthesis C3 and C4 and C4-C5 1 to 2 mm. There is minimal retrolisthesis C5 on C6 1 to 2 mm. The fracture fragments at the anterior-inferior endplate ofC5 appears distracted anteriorly and well corticated. Ikqnnnsg-bu-ldfxan multilevel facet arthropathy. Facet joints are normal in alignment. Overall moderate multilevel disc space narrowing greatest at C5-C6, appearing severe at this level. No prevertebral soft tissue swelling. XR/XR cervical spine 2V IMPRESSION: SLIGHT ANTERIOR DISTRACTION OF THE FRACTURE AT C5.. FRACTURE APPEARS WELL CORTICATED. Impression dictated by: Chris Munguia M.D.03/01/2024 4:16 PM Dictation Location: [place] [address] Transcribed By: [facility] 03/01/241615 Dictated By: Chris Munguia MD 03/01/24 161 Signed By: 03/01/24 [facility] Work Phone: XR cervical spine 2Von 03-01 XR cervical spine 2V [facility] Main [place] [address] [place] [address] XRay Report Signed Patient: Hiram Madrid MR#: [id number] : 1935 Acct:[id number] Age/Sex: 88 / F ADM Date: 03/01/24 Loc: XD Room: Type: REG CLI Attending Dr: Niki Owusu MD Copies to: Niki Owusu MD Ordering Provider: Niki Owusu MD Date of Service: 03/01/24 XR/XR cervical spine 2V: f/u C5 fracture CERVICAL SPINE 2 views: CLINICAL HISTORY: C5 fracture, follow-up COMPARISON: CT from [facility] 01/21/2025, MRI cervical spine 01/24/2024 FINDINGS: There is reversal of the normal cervical lordosis. There is is minimal anterolisthesis C3 and C4 and C4-C5 1 to 2 mm. There is minimal retrolisthesis C5 on C6 1 to 2 mm. The fracture fragments at the anterior-inferior endplate of C5 appears distracted anteriorly and well corticated. Jsnscqoi-vy-vhscyf multilevel facet arthropathy. Facet joints are normal in alignment. Overall moderate multilevel disc space narrowing greatest at C5-C6, appearing severe at this level. No prevertebral soft tissue swelling. XR/XR cervical spine 2V IMPRESSION: SLIGHT ANTERIOR DISTRACTION OF THE FRACTURE AT C5.. FRACTURE APPEARS WELL CORTICATED. Impression dictated by: Chris Munguia M.D.03/01/2024 4:16 PM Dictation Location: [place] [address] Transcribed By: [facility] 03/01/24 1616 Dictated By: Chris Munguia MD 03/01/24 1610 Signed By: 03/01/24 1616 Normal [facility] Basic Metabolic Panelon 12-0 Anion gap [Moles/Vol] 10.9 mmol/L Normal 6.0-15.0 [facility] Comment on above: Performed By: #### U ROSMO, KERRY #### [facility] [address] [place] [address] [place] Calcium [Mass/Vol] 8.8 mg/dL Normal 8.6-10.3 [facility] Comment on above: Performed By: #### U ROSMO, KERRY #### [facility] [address] [place] [id number] [place] Chloride [Moles/Vol] 97 mmol/L Low 98-107 [facility] Comment on above: Performed By: #### U ROSMO, KERRY #### [facility] [address] [place] [id number] [place] CO2 [Moles/Vol] 27.7 mmol/L Normal 21.0-31.0 [facility] Comment on above: Performed By: #### U ROSMO, KERRY #### [address] Creatinine [Mass/Vol] 0.84 mg/dL Significan t change down 0.60-1.20 [facility] Comment on above: Performed By: #### U ROSMO, KERRY #### [place] [address] [place] Creatinine Clr Calc Pharmacy 41.86 Normal [facility] Comment on above: Result Comment: PERF ORMED BY: [place] [address] PATHOLOGIST DIE PRESS OPERATOR SHERLYN BUSTILLO M.D. Performed By: #### U ROSMO, KERRY #### [place] [address] [place] GFR/1.73 sq M.predicted MDRD (S/P/Bld) [Vol rate/Area] mL/min/{1.73_m2} Normal [facility] Comment on above: Performed By: #### U ROSMO, KERRY #### [address] Glucose [Mass/Vol] 115 mg/dL High 70-100 [facility] Comment on above: Result Comment: [facility] Glucose Reference Range is dependent on time and content of last meal. Glucose of more than 200 mg/dL in a nonstressed, ambulatory subject supports the diagnosis of Diabetes Mellitus. ADA recommended reference range Performed By: #### U ROSMO, KERRY #### [place] [address] [place] Potassium [Moles/Vol] 3.6 mmol/L Normal 3.5-5.1 [facility] Comment on above: Performed By: #### U ROSMO, KERRY #### [place] [address] [place] Sodium [Moles/Vol] 132 mmol/L Low 136-145 [facility] Comment on above: Performed By: #### U ROSMO, KERRY #### [facility] [address] Urea nitrogen [Mass/Vol] 17 mg/dL Normal 7-25 [facility] Comment on above: Performed By: #### U ROSMO, KERRY #### [facility] [address] [place] [phone] [facility] Hemogram CBC Without Diffon 01-25-2024 Erythrocyte distribution width (RBC) [Ratio] 14.0 % Normal 11.9-15.3 [facility] Comment on above: Performed By: #### U ROSMO, KERRY #### [facility] [address] Hematocrit (Bld) [Volume fraction] 36.1 % Normal 34.0-46.4 [facility] Comment on above: Performed By: #### U ROSMO, KERRY #### [facility] [address] [place] [id number] [facility] Hemoglobin (Bld) [Mass/Vol] 12.0 g/dL Normal 11.8-15.4 [facility] Comment on above: Performed By: #### U ROSMO, KERRY #### [facility] [address] [place] [phone] [facility] MCH (RBC) [Entitic mass] 30.5 pg Normal 24.7-34.3 [facility] Comment on above: Performed By: #### U ROSMO, KERRY #### [facility] [address] [place] [phone] [facility] MCV (RBC) [Entitic vol] 91.4 fL Normal 80-100 T [facility] Comment on above: Performed By: #### U ROSMO, KERRY #### [facility] [address] [place] [id number] [facility] Mean Corpuscular HGB Conc 33.4 g/dL Normal 32.0-35.0 [facility] Comment on above: Performed By: #### U ROSMO, KERRY #### [facility] [address] [place] [phone] [facility] Platelet mean volume (Bld) [Entitic vol] 7.8 fL Normal 6.3-10.7 [facility] Comment on above: Result Comment: PERF ORMED BY: [place] [address] PATHOLOGIST DIE PRESS OPERATOR SHERLYN BUSTILLO M.D. Performed By: #### U ROSMO, KERRY #### [facility] [address] [place] [address] Platelets (Bld) [#/Vol] 385 10*3/uL Normal 150-450 [facility] Comment on above: Performed By: #### U ROSMO, KERRY #### [address] RBC (Bld) [#/Vol] 3.94 10*6/uL Normal 3.60-5.[address] [facility] Comment on above: Performed By: #### U ROSMO, KERRY #### [address] WBC (Bld) [#/Vol] 12.1 10*3/uL High 3.8-11.[address] [facility] Comment on above: Performed By: #### U ROSMO, KERRY #### [address] Magnesiumon 01-25-2024 Magnesium [Mass/Vol] 1.7 mg/dL Low 1.9-2.7 [facility] Comment on above: Result Comment: PERF ORMED BY: [place] [address] PATHOLOGIST DIE PRESS OPERATOR SHERLYN BUSTILLO M.D. Performed By: #### U ROSMO, KERRY #### [place] [address] [place] XR cervical spine 2Von 01-24 XR cervical spine 2V [facility] [place] [address] XRay Report Signed Patient: Hiram Madrid MR#: [id number] : 1935 Acct:[id number] Age/Sex: 88 / F ADM Date: 01/24/24 Loc: Room: [address] [place] [address] Type: ADM IN Attending Dr: Niki Owusu MD Copies to: DO Niki Patiño MD Ordering Provider: Lg Fu DO Date of Service: 01/25/24 XR/XR cervical spine 2V: C5 fracture 2 viewcervical spine HISTORY: Recheck C5 fracture. COMPARISON: CT cervical spine 01/22/2024 POSTOPERATIVE CHANGES: None BONY ALIGNMENT: Similar straightening HYPERMOBILITY::No bending imaging. LISTHESIS:Similar mild degenerative listhesis FRACTURE: Similar anterior endplate spurring C5 fracture. 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 FACETS: Multilevel facet generation FORAMEN: Not assessed DENS: Intact CRANIOCERVICAL JUNCTION: Unremarkable SOFT TISSUES: Unremarkable XR/XR cervical spine 2V IMPRESSION: Stable C5 fracture. Stable alignment. Similar degeneration. Impression dictated by: Andrea Graf M.D.01/25/2024 10:00 AM Dictation Location: [place] [address] Transcribed By: [facility] 01/25/24 1000 Dictated By: Andrea Graf DO 01/25/24 0957 Signed By: 01/25/24 1000 Normal [facility] Basic Metabolic Panelon 12-0 Anion gap [Moles/Vol] 15.6 mmol/L High 6.0-15.0 [facility] Comment on above: Performed By: #### C BCNO, BMP #### [facility] [address] [place] [phone] [place] Calcium [Mass/Vol] 8.9 mg/dL Normal 8.6-10.3 [facility] Comment on above: Performed By: #### C BCNO, BMP #### [facility] [address] [place] [phone] [place] Chloride [Moles/Vol] 94 mmol/L Low 98-107 [facility] Comment on above: Performed By: #### C BCNO, BMP #### [facility] [address] [place] [phone] [place] CO2 [Moles/Vol] 24.6 mmol/L Normal 21.0-31.0 [facility] Comment on above: Performed By: #### C BCNO, BMP #### [facility] [address] Creatinine [Mass/Vol] 1.55 mg/dL Significan t change up 0.60-1.20 [facility] Comment on above: Performed By: #### C BCNO, BMP #### [facility] [address] [place] [address] [place] Creatinine Clr Calc Pharmacy 22.62 Normal [facility] Comment on above: Result Comment: PERF ORMED BY: [place] [address] PATHOLOGIST DIE PRESS OPERATOR SHERLYN BUSTILLO M.D. Performed By: #### C BCNO, BMP #### [facility] [address] Estimated GFR 32.226 mL/Min Normal [facility] Comment on above: Performed By: #### C BCNO, BMP #### [address] Glucose [Mass/Vol] 121 mg/dL High 70-100 [facility] Comment on above: Result Comment: [place] Glucose Reference Range is dependent on time and content of last meal. Glucose of more than 200 mg/dL in a nonstressed, ambulatory subject supports the diagnosis of Diabetes Mellitus. ADA recommended reference range Performed By: #### C BCNO, BMP #### [address] Potassium [Moles/Vol] 4.2 mmol/L Normal 3.5-5.1 [facility] Comment on above: Performed By: #### C BCNO, BMP #### [facility] [address] [place] [address] [place] Sodium [Moles/Vol] 130 mmol/L Low 136-145 [facility] Comment on above: Performed By: #### C BCNO, BMP #### [facility] [address] Urea nitrogen [Mass/Vol] 23 mg/dL Normal 7-25 [facility] Comment on above: Performed By: #### C BCNO, BMP #### [address] Hemogram CBC Without Diffon 01-24-2024 Erythrocyte distribution width (RBC) [Ratio] 13.9 % Normal 11.9-15.3 [facility] Comment on above: Performed By: #### C BCNO, BMP #### [address] Hematocrit (Bld) [Volume fraction] 37.2 % Normal 34.0-46.4 [facility] Comment on above: Performed By: #### C BCFLOYD, BMP #### [address] Hemoglobin (Bld) [Mass/Vol] 12.6 g/dL Normal 11.8-15.4 [facility] Comment on above: Performed By: #### C BCFLOYD, BMP #### [address] MCH (RBC) [Entitic mass] 30.6 pg Normal 24.7-34.3 [facility] Comment on above: Performed By: #### C BCFLOYD, BMP #### [address] MCV (RBC) [Entitic vol] 90.5 fL Normal 80-100 [facility] Comment on above: Performed By: #### C BCNO, BMP #### [address] Mean Corpuscular HGB Conc 33.8 g/dL Normal 32.0-35.0 [facility] Comment on above: Performed By: #### C BCNO, BMP #### [address] Platelet mean volume (Bld) [Entitic vol] 7.5 fL Normal 6.3-10.7 [facility] Comment on above: Result Comment: PERF ORMED BY: [place] [address] PATHOLOGIST DIE PRESS OPERATOR SHERLYN BUSTILLO M.D. Performed By: #### C BCNO, BMP #### [facility] [address] Platelets (Bld) [#/Vol] 408 10*3/uL Normal 150-450 [facility] Comment on above: Performed By: #### C BCNO, BMP #### [facility] [address] RBC (Bld) [#/Vol] 4.11 10*6/uL Normal 3.60-5.[address] [facility] Comment on above: Performed By: #### C BCNO, BMP #### [facility] [address] WBC (Bld) [#/Vol] 11.5 10*3/uL Normal 3.8-11.[address] [facility] Comment on above: Performed By: #### C BCNO, BMP #### [address] MR cervical spine wo conon 1 03-26-2023 MR cervical spine wo con [facility] Main [place] [address] [place] [address] MRI Report Signed Patient: Hiram Madrid MR#: [id number] : 1935 Acct:[id number] Age/Sex: 88 / F ADM Date: 01/24/24 Loc: Room: [address] [place] [address] Type: ADM IN Attending Dr: Niki Owusu MD Copies to: DO Niki Patiño MD Ordering Provider: Lg Fu DO Date of Service: 01/24/24 MR/MR cervical spine wo con: fall w C5 fx MR cervical spine wo con 01/23/2024 7:38 AM SIGNS AND SYMPTOMS: C5 fracture, recent fall, follow-up PROTOCOL: Multiplanar multisequence MR images of the cervical spine were obtained without IV contrast COMPARISON: 01/22/2024 FINDINGS: The bones of the cervical spine are in anatomic alignment. There is preservation of vertebral body heights. There is redemonstration of a fracture along the anterior aspect of the inferior endplate at C5. There is prevertebral edema extending from C2 through T1. There is moderate disc height loss at C3-C4 and C4-C5 with severe disc height loss at C5-6. There is a benign-appearing hemangioma at T3. There is a benign-appearing hemangioma extending into the left pedicle and C7. The cord is normal in signal. No epidural or paraspinous fluid collection is appreciated. The visualized paraspinous soft tissues are within normal limits. The prevertebral soft tissues are within normal limits. At C2-C3: There is uncovertebral joint spurring on the right contributing to mild right neural foraminal narrowing. No spinal canal narrowing. At C3-C4: There is a broad-based disc bulge with facet and operative joint degenerative change. There is severe left and mild right neural foraminal narrowing with mild spinal canal narrowing. At C4-C5: There is a broad-based disc bulge with facet and operative joint degenerative change. There is moderate right and mild left neural foraminal narrowing with mild spinal canal narrowing. At C5-C6: There is a broad-based disc bulge with facet and operative joint degenerative change. There is moderate to severe spinal canal narrowing with mild effacement of the right anterior aspects of the cord. There is severe right and moderate severe left neural foraminal stenosis. At C6-C7: There is a broad-based disc bulge with facet and operative injection change contributing to severe right and mild left neural foraminal narrowing with moderate spinal canal narrowing. At C7-T1: There is a normal disc, central canal, and neural foramen. MR/MR cervical spine wo con IMPRESSION: No cord compression or cord signal abnormality. There is redemonstration of a fracture along the anterior aspect of the inferior endplate at C5 with accompanying prevertebral edema. At C3-C4: There is a broad-based disc bulge with facet and operative joint degenerative change. There is severe left and mild right neural foraminal narrowing with mild spinal canal narrowing. At C5-C6: There is a broad-based disc bulge with facet and operative joint degenerative change. There is moderate to severe spinal canal narrowing with mild effacement of the right anterior aspects of the cord. There is severe right and moderate severe left neural foraminal stenosis. At C6-C7: There is a broad-based disc bulge with facet and operative injection change contributing to severe right and mild left neural foraminal narrowing with moderate spinal canal narrowing. Lesser degrees of spinal canal and neural foramen are noted as above. Impression dictated by: Angelo Winchester M.D.01/24/2024 7:59 PM Dictation Location: [place] [address] Transcribed By: [facility] 01/24/241958 Dictated By: Angelo Winchester II, MD 01/24/241951 Signed By: 01/24/241958 Normal [facility] Complete Blood Count Auto Di ffon 01-23-2024 Basophils (Bld) [#/Vol] 0.1 10*3/uL Normal 0.0-0.2 [facility] Comment on above: Result Comment: PERF ORMED BY: [place] [address] PATHOLOGIST DIE PRESS OPERATOR SHERLYN BUSTILLO M.D. Performed By: #### B MP #### [address] Basophils/100 WBC (Bld) 0.9 % Normal . [facility] Comment on above: Performed By: #### B MP #### [address] Eosinophils (Bld) [#/Vol] 0.0 10*3/uL Normal 0.0-0.45 [facility] Comment on above: Performed By: #### B MP #### [address] Eosinophils/100 WBC (Bld) 0.2 % Normal . [facility] Comment on above: Performed By: #### B MP #### [address] Erythrocyte distribution width (RBC) [Ratio] 13.9 % Normal 11.9-15.3 [facility] Comment on above: Performed By: #### B MP #### [address] Hematocrit (Bld) [Volume fraction] 40.4 % Normal 34.0-46.4 [facility] Comment on above: Performed By: #### B MP #### [address] Hemoglobin (Bld) [Mass/Vol] 13.5 g/dL Normal 11.8-15.4 [facility] Comment on above: Performed By: #### B MP #### [address] Lymphocytes (Bld) [#/Vol] 1.7 10*3/uL Normal 1.00-4.8 [facility] Comment on above: Performed By: #### B MP #### [address] Lymphocytes/100 WBC (Bld) 12.0 % Normal . [facility] Comment on above: Performed By: #### B MP #### [address] MCH (RBC) [Entitic mass] 30.3 pg Normal 24.7-34.3 [facility] Comment on above: Performed By: #### B MP #### [address] MCV (RBC) [Entitic vol] 90.5 fL Normal 80-100 [facility] Comment on above: Performed By: #### B MP #### [address] Mean Corpuscular HGB Conc 33.4 g/dL Normal 32.0-35.0 [facility] Comment on above: Performed By: #### B MP #### [address] Monocytes (Bld) [#/Vol] 0.8 10*3/uL Normal 0.0-0.8 [facility] Comment on above: Performed By: #### B MP #### [address] Monocytes/100 WBC (Bld) 5.4 % Normal . [facility] Comment on above: Performed By: #### B MP #### [place] [address] [place] Neutrophils (Bld) [#/Vol] 11.7 10*3/uL High 1.8-7.7 [facility] Comment on above: Performed By: #### B MP #### [address] Neutrophils/100 WBC (Bld) 81.5 % Normal . [facility] Comment on above: Performed By: #### B MP #### [address] NRBC% 0.0 /100{WBC} Normal 0-0.5 [facility] Comment on above: Performed By: #### B MP #### [address] Platelet mean volume (Bld) [Entitic vol] 7.4 fL Normal 6.3-10.7 [facility] Comment on above: Performed By: #### B MP #### [address] Platelets (Bld) [#/Vol] 428 10*3/uL Normal 150-450 [facility] Comment on above: Performed By: #### B MP #### [address] RBC (Bld) [#/Vol] 4.47 10*6/uL Normal 3.60-5.[address] [facility] Comment on above: Performed By: #### B MP #### [address] WBC (Bld) [#/Vol] 14.3 10*3/uL High 3.8-11.[address] [facility] Comment on above: Performed By: #### B MP #### [address] Comprehensive Metabolic Pane carlos 01-23-2024 Albumin [Mass/Vol] 3.9 g/dL Normal 3.5-5.7 [facility] Comment on above: Performed By: #### B MP #### [address] Albumin/Globulin [Mass ratio] 1.3 {ratio} Normal [facility] Comment on above: Performed By: #### B MP #### [address] ALP [Catalytic activity/Vol] 73 U/L Normal 34-104 [facility] Comment on above: Performed By: #### B MP #### [address] ALT [Catalytic activity/Vol] 18 U/L Normal 7-52 [facility] Comment on above: Performed By: #### B MP #### [address] Anion gap [Moles/Vol] 14.2 mmol/L Normal 6.0-15.0 Th [facility] Comment on above: Performed By: #### B MP #### [address] AST [Catalytic activity/Vol] 46 U/L High 13-39 [facility] Comment on above: Performed By: #### B MP #### [address] Bilirubin [Mass/Vol] 0.6 mg/dL Normal 0.3-1.0 [facility] Comment on above: Performed By: #### B MP #### [address] Calcium [Mass/Vol] 9.3 mg/dL Normal 8.6-10.3 [facility] Comment on above: Performed By: #### B MP #### [place] [address] [place] Chloride [Moles/Vol] 96 mmol/L Low 98-107 [facility] Comment on above: Performed By: #### B MP #### [address] CO2 [Moles/Vol] 24.7 mmol/L Normal 21.0-31.0 [facility] Comment on above: Performed By: #### B MP #### [address] Creatinine [Mass/Vol] 0.81 mg/dL Normal 0.60-1.20 [facility] Comment on above: Performed By: #### B MP #### [address] Creatinine Clr Calc Pharmacy 43.35 Normal [facility] Comment on above: Performed By: #### B MP #### [place] [address] [place] GFR/1.73 sq M.predicted MDRD (S/P/Bld) [Vol rate/Area] mL/min/{1.73_m2} Normal [facility] Comment on above: Performed By: #### B MP #### [address] Globulin (S) [Mass/Vol] 3.1 g/dL Normal T he [facility] Comment on above: Performed By: #### B MP #### [address] Glucose [Mass/Vol] 131 mg/dL High 70-100 [facility] Comment on above: Result Comment: [place] Glucose Reference Range is dependent on time and content of last meal. Glucose of more than 200 mg/dL in a nonstressed, ambulatory subject supports the diagnosis of Diabetes Mellitus. ADA recommended reference range Performed By: #### B MP #### [address] Potassium [Moles/Vol] 3.9 mmol/L Normal 3.5-5.1 [facility] Comment on above: Performed By: #### B MP #### [address] Protein [Mass/Vol] 7.0 g/dL Normal 6.4-8.9 [facility] Comment on above: Performed By: #### B MP #### [address] Sodium [Moles/Vol] 131 mmol/L Low 136-145 [facility] Comment on above: Performed By: #### B MP #### [address] Urea nitrogen [Mass/Vol] 12 mg/dL Normal 7-25 [facility] Comment on above: Performed By: #### B MP #### [address] Magnesiumon 01-23-2024 Magnesium [Mass/Vol] 1.7 mg/dL Low 1.9-2.7 [facility] Comment on above: Result Comment: PERF ORMED BY: [place] [address] PATHOLOGIST DIE PRESS OPERATOR SHERLYN BUSTILLO M.D. Performed By: #### B MP #### [address] Urinalysison 01-23-2024 Appearance (U) Clear Normal Clear The [facility] Comment on above: Order Comment: Name Collection Type:: Clean-Voided Midstream Performed By: #### B MP #### [place] [address] [place] Bilirubin,Urine Negative Normal Negative The [facility] Comment on above: Order Comment: Name Collection Type:: Clean-Voided Midstream Performed By: #### B MP #### [place] [address] [place] Color (U) Light-Yellow Normal Yellow The [facility] Comment on above: Order Comment: Name Collection Type:: Clean-Voided Midstream Performed By: #### B MP #### [address] Glucose Ql (U) Normal Normal Normal The [facility] Comment on above: Order Comment: Name Collection Type:: Clean-Voided Midstream Performed By: #### B MP #### [address] Ketones Ql (U) Trace High Negative [facility] Comment on above: Order Comment: Name Collection Type:: Clean-Voided Midstream Performed By: #### B MP #### [address] Leukocyte esterase Test strip Ql (U) Negative Normal Negative [facility] Comment on above: Order Comment: Name Collection Type:: Clean-Voided Midstream Performed By: #### B MP #### [place] [address] [place] Nitrite,Urine Negative Normal Negative The [facility] Comment on above: Order Comment: Name Collection Type:: Clean-Voided Midstream Performed By: #### B MP #### [address] Occult Blood,Urine Negative Normal Negative [facility] Comment on above: Order Comment: Name Collection Type:: Clean-Voided Midstream Result Comment: PERF ORMED BY: [place] [address] PATHOLOGIST DIE PRESS OPERATOR SHERLYN BUSTILLO M.D. Performed By: #### B MP #### [place] [address] [place] pH (U) 7.5 [pH] Normal 5.0-9.0 [facility] Comment on above: Order Comment: Name Collection Type:: Clean-Voided Midstream Performed By: #### B MP #### [place] [address] [place] Protein,Urine Negative Normal Negative The [facility] Comment on above: Order Comment: Name Collection Type:: Clean-Voided Midstream Performed By: #### B MP #### [place] [address] [place] Specificy [place],Urine 1.013 Normal 1.001-1.030 [facility] Comment on above: Order Comment: Name Collection Type:: Clean-Voided Midstream Performed By: #### B MP #### [place] [address] [place] Urobilinogen,Urine Normal Normal Normal [facility] Comment on above: Order Comment: Name Collection Type:: Clean-Voided Midstream Performed By: #### B MP #### [facility] [address] [id number] [facility] Urine Cultureon 01-23-2024 Bacteria identified Cx Nom (U) 20,000 colonies/ml mixed bacterial skin contaminants 2 Days PERFORMED BY: [address] [place] [address] PATHOLOGIST DIE PRESS OPERATOR SHERLYN BUSTILLO M.D. Normal [facility] Comment on above: Performed By: #### U ROSMO, KERRY #### [facility] [address] [id number] [facility] Reminderson 09-26-2023 Reminders Reminders -- From: Jacquie Gan To: ERIN - Recallsánchez Weiss; Sent: 12/22/2022 12:30:05 EDT Show up: 05/23/2023 12:30:00 EDT Subject: JAC and BUN/Creatinine prior to appt Reminder Message Please Remember to:_have pt schedule JAC prior to appt. Please look for BUN/Cr labs from PCP. If unable to locate recent labs, send pt order to complete this. Pt cancelled appt. Separate message to PRW regarding tracking pt. Normal [facility] Ambulatory Visit Summaryon 0 06-28-2023 Ambulatory [...] mg DR Tab) potassium chloride (Potassium Chloride (Azf-Kvri-Sdb 10)) pravastatin (pravastatin 80 mg Tab) Procedures Performed Excision of basal cell carcinoma (06/21/2023), Accessory mobilization of the lumbar spine, Appendectomy, Bilateral salpingo-oophorecto my, Cataract extraction and insertion of intraocular lens, [...] or concerns Unchanged potassium chloride (Potassium Chloride (Cxr-Kumt-Fqa 10)) 20 Milliequivalent By Mouth 3 times [...] you for choosing us for your care. Normal [facility] General Surgery Office/Clini c Noteon 06-28-2023 [...] no anemia, no blood clots, no transfusions. Allergy/Immunologic : no swollen lymph nodes/glands, no IV drug [...] mobilization of the lumbar spine, Appendectomy, Bilateral salpingo-oophorecto my, Cataract extraction and insertion of intraocular lens, [...] mg= 1 tab(s), Oral, Daily Potassium Chloride (Ycv-Bwhr-Oqd 10), 20 mEq, Oral, TID pravastatin 80 [...] influenza virus vaccine, inactivated 12/11/2014 Recorded Normal [facility] Comment on above: Result Comment: Elec tronically Signed By: ROMARIO DUMONT, Turner Connor\Date and Time Signed: 06/28/23 15:02 EDT Pathology Noteon 06-26-2023 Pathology Note [id number]#1.00TIFF Normal [facility] Operative Reporton Operative Report [id number] 64#1.00TIFF Normal [facility] Carlos 06-21-2023 L Specimen: [id number] Received: 06/22/23 Status: BEST Orr Num: [id number] Spec Type: Surgical Subm Dr: Turner Doss MD FACS Tissues: A Skin-Other than Cyst, tag, debridement or plastic repair (LT CHEEK) Procedures: HE, Gross/Micro L4 Age/ Patient Sex Location Account Attending Physician Hiram Madrid 87/F LABELL [id number] Turner Doss MD FACS SPEC NUM: [id number] RECD: 06/22/23 STATUS: BEST ORR NUM: [id number] DI: 06/21/[address]: Turner Doss MD FACS ENTERED: 06/22/23 [facility] DR: Lucian Avilez SPEC TYPE: Surgical [...] Changing lesion left cheek TW CPT Codes 75962 Specimen: [id number] Received: 06/22/23 Status: BEST Orr Num: [id number] Spec Type: Surgical Subm Dr: Turner Doss MD FACS Tissues: A Skin-Other than Cyst, tag, debridement or plastic repair (LT CHEEK) Procedures: Antonio GOYAL/Karyna L4 Patient: Hiram Madrid [id number] (Continued) Signed (signatur e on file) Ángel Dodson MD 06/23/231633 Normal [facility] Consent for Procedure/Surger yon 05-04-2023 Consent for Procedure/Surgery [id number] 99#1.00TIFF [facility] Facesheeton 05-04-2023 Facesheet [id number] 70#1.00TIFF [facility] Ambulatory Visit Summaryon 0 05-03-2023 Ambulatory [...] mg DR Tab) potassium chloride (Potassium Chloride (Xya-Dmqu-Qnl 10)) pravastatin (pravastatin 80 mg Tab) Procedures Performed Accessory mobilization of the lumbar spine, Appendectomy, Bilateral salpingo-oophorecto my, Cataract extraction and insertion of intraocular lens, Cholecystectomy, Colonoscopy, Fusion of lumbar spine, Tonsillectomy. Discharge Vitals Heart Rate (Peripheral) 76 Respiratory Rate 16 Blood Pressure 156/82 Height 155 cm Height 61 in Weight 59.8 kg Weight 131.56 lb BMI 24.89 What to do next Scheduled Follow-Up Appointments June. 2023 9:30 AM EDT With: ABDULLAHI NOONAN, MIKAYLA Pereira Where: [facility] Physician Referralon 024 Physician Referral [id number] 69#1.00TIFF [facility] Physician Referralon 024 Physician Referral [id number] 42#1.00TIFF [facility] Laboratory - Chemistry and C hemistry - challengeon 04-12-2023 Calcium [Mass/Vol] 8.9 mg/dL [facility] Chloride [Moles/Vol] 98 mmol/L [facility] CO2 [Moles/Vol] 25.9 mmol/L [facility] Creatinine [Mass/Vol] 0.76 mg/dL [facility] Glucose [Mass/Vol] 113 mg/dL [facility] Potassium [Moles/Vol] 4.0 mmol/L [facility] Sodium [Moles/Vol] 135 mmol/L [facility] Urea nitrogen [Mass/Vol] 12.0 mg/dL [facility] Basic Metabolic Panelon 03-23 Creatinine Clr Calc Pharmacy 42.78 Normal [facility] Comment on above: Result Comment: PERF ORMED BY: [place] [address] PATHOLOGIST DIE PRESS OPERATOR GOSIA MCADAMS M.D. Performed By: #### B MP #### [place] [address] [place] GFR/1.73 sq M.predicted MDRD (S/P/Bld) [Vol rate/Area] mL/min/{1.73_m2} Normal [facility] Comment on above: Performed By: #### B MP #### [place] [address] [place] Calcium [Mass/volume] in Ser um or PlasmaOrdered By: Turner Frank on 04-05-2023 Calcium [Mass/Vol] 9.2 mg/dL Normal 8.6-10.3 [facility] Comment on above: Performed By: #### B MP #### [facility] [address] [place] [address] [place] Carbon dioxide, total [Moles /volume] in Serum or PlasmaOrdered By: Turner Frank on 04-05-2023 CO2 [Moles/Vol] 27.7 mmol/L Normal 21.0-31.0 [facility] Comment on above: Performed By: #### B MP #### [facility] [address] [place] [address] [place] Chloride [Moles/volume] in S willa or PlasmaOrdered By: Turner Frank on 04-05-2023 Chloride [Moles/Vol] 91 mmol/L Low 98-107 [facility] Comment on above: Performed By: #### B MP #### [facility] [address] Creatinine [Mass/volume] in Serum or PlasmaOrdered By: Turner Frank on 04-05-2023 Creatinine [Mass/Vol] 0.56 mg/dL Low 0.60-1.20 [facility] Comment on above: Performed By: #### B MP #### [facility] [address] Glucose [Mass/volume] in Ser um or PlasmaOrdered By: Turner Frank on 04-05-2023 Glucose [Mass/Vol] 116 mg/dL High 70-100 [facility] Comment on above: ADA recommended refe rence rangeRandom Glucose Reference Range is dependent on time and content of last meal. Glucose of more than 200 mg/dL in a nonstressed, ambulatory subject supports the diagnosis of Diabetes Mellitus. Result Comment: [place] [facility] Glucose Reference Range is dependent on time and content of last meal. Glucose of more than 200 mg/dL in a nonstressed, ambulatory subject supports the diagnosis of Diabetes Mellitus. ADA recommended reference range Performed By: #### B MP #### [address] No Panel InformationOrdered By: Turner Frank on 04-05-2023 Estimated GFR (CKD-EPI) > 60.0 mL/Min [facility] Creatinine Clearance (Chem 42.78 [facility] Potassium [Moles/volume] in Serum or PlasmaOrdered By: Turner Frank on 04-05-2023 Potassium [Moles/Vol] 3.5 mmol/L Normal 3.5-5.1 [facility] Comment on above: Performed By: #### B MP #### [address] Serum or plasma anion gap de terminationOrdered By: Turner Frank on 04-05-2023 Anion gap [Moles/Vol] 14.8 mmol/L Normal 6.0-15.0 [facility] Comment on above: Performed By: #### B MP #### [address] [place] [address] [place] Sodium [Moles/volume] in Ser um or PlasmaOrdered By: Turner Frank on 04-05-2023 Sodium [Moles/Vol] 130 mmol/L Low 136-145 [facility] Comment on above: Performed By: #### B MP #### [address] Urea nitrogen [Mass/volume] in Serum or PlasmaOrdered By: Turner Frank on 04-05-2023 Urea nitrogen [Mass/Vol] 8 mg/dL Normal 7-25 [facility] Comment on above: Performed By: #### B MP #### [address] Basic Metabolic Panelon 03-23 Anion gap [Moles/Vol] 10.8 mmol/L Normal 6.0-15.0 e [facility] Comment on above: Performed By: #### U ROSMO, KERRY #### [address] Calcium [Mass/Vol] 9.0 mg/dL Normal 8.6-10.3 [facility] Comment on above: Performed By: #### U ROSMO, KERRY #### [address] Chloride [Moles/Vol] 92 mmol/L Low 98-107 [facility] Comment on above: Performed By: #### U ROSMO, KERRY #### [address] CO2 [Moles/Vol] 26.3 mmol/L Normal 21.0-31.0 [facility] Comment on above: Performed By: #### U ROSMO, KERRY #### [address] Creatinine [Mass/Vol] 0.61 mg/dL Normal 0.60-1.20 [facility] Comment on above: Performed By: #### U ROSMO, KERRY #### [place] [address] [place] Creatinine Clr Calc Pharmacy 42.78 Normal [facility] Comment on above: Result Comment: PERF ORMED BY: [place] [address] PATHOLOGIST DIE PRESS OPERATOR GOSIA MCADAMS M.D. Performed By: #### U ROSMO, KERRY #### [place] [address] [place] GFR/1.73 sq M.predicted MDRD (S/P/Bld) [Vol rate/Area] mL/min/{1.73_m2} Normal [facility] Comment on above: Performed By: #### U ROSMO, KERRY #### [address] Glucose [Mass/Vol] 177 mg/dL High 70-100 [facility] Comment on above: Result Comment: [facility] Glucose Reference Range is dependent on time and content of last meal. Glucose of more than 200 mg/dL in a nonstressed, ambulatory subject supports the diagnosis of Diabetes Mellitus. ADA recommended reference range Performed By: #### U ROSMO, KERRY #### [address] Potassium [Moles/Vol] 3.1 mmol/L Low 3.5-5.1 [facility] Comment on above: Performed By: #### U ROSMO, KERRY #### [place] [address] [place] Sodium [Moles/Vol] 126 mmol/L Low 136-145 [facility] Comment on above: Performed By: #### U ROSMO, KERRY #### [place] [address] [place] Urea nitrogen [Mass/Vol] 7 mg/dL Normal 7-25 [facility] Comment on above: Performed By: #### U ROSMO, KERRY #### [address] Anion gap [Moles/Vol] 10.3 mmol/L Normal 6.0-15.0 Th e [facility] Comment on above: Performed By: #### T 4F, BMP #### [address] [place] [address] [place] Calcium [Mass/Vol] 8.6 mg/dL Normal 8.6-10.3 [facility] Comment on above: Performed By: #### T 4F, BMP #### [address] Chloride [Moles/Vol] 93 mmol/L Low 98-107 [facility] Comment on above: Performed By: #### T 4F, BMP #### [address] CO2 [Moles/Vol] 27.2 mmol/L Normal 21.0-31.0 [facility] Comment on above: Performed By: #### T 4F, BMP #### [address] Creatinine [Mass/Vol] 0.59 mg/dL Low 0.60-1.20 [facility] Comment on above: Performed By: #### T 4F, BMP #### [place] [address] [place] Creatinine Clr Calc Pharmacy 42.39 Normal [facility] Comment on above: Performed By: #### T 4F, BMP #### [place] [address] [place] GFR/1.73 sq M.predicted MDRD (S/P/Bld) [Vol rate/Area] mL/min/{1.73_m2} Normal [facility] Comment on above: Performed By: #### T 4F, BMP #### [address] Glucose [Mass/Vol] 107 mg/dL High 70-100 [facility] Comment on above: Result Comment: [place] Glucose Reference Range is dependent on time and content of last meal. Glucose of more than 200 mg/dL in a nonstressed, ambulatory subject supports the diagnosis of Diabetes Mellitus. ADA recommended reference range Performed By: #### T 4F, BMP #### [address] Potassium [Moles/Vol] 3.5 mmol/L Normal 3.5-5.1 [facility] Comment on above: Performed By: #### T 4F, BMP #### [address] Sodium [Moles/Vol] 127 mmol/L Low 136-145 [facility] Comment on above: Performed By: #### T 4F, BMP #### [address] Urea nitrogen [Mass/Vol] 7 mg/dL Normal 7-25 [facility] Comment on above: Performed By: #### T 4F, BMP #### [address] Thyroxine (T4) free [Mass/vo lume] in Serum or PlasmaOrdered By: Turner Frank on 04-04-2023 Free T4 [Mass/Vol] 1.41 ng/dL High 0.61-1.12 [facility] Comment on above: Result Comment: PERF ORMED BY: [place] [address] PATHOLOGIST DIE PRESS OPERATOR GOSIA MCADAMS M.D. Performed By: #### B MP #### [address] Alanine aminotransferase [En zymatic activity/volume] in Serum or PlasmaOrdered By: Natividad Gregory on 04-03-2023 ALT [Catalytic activity/Vol] 14 U/L Normal 7-52 [facility] Comment on above: Performed By: #### C BC, CMP #### [address] Albumin [Mass/volume] in Ser um or Plasma by Bromocresol green (BCG) dye binding methoOrdered By: Natividad Gregory on 04-03-2023 Albumin BCG dye [Mass/Vol] 3.7 g/dL 3.5-5.7 [facility] Alkaline phosphatase [Enzyma tic activity/volume] in Serum or PlasmaOrdered By: Natividad Gregory on 04-03-2023 ALP [Catalytic activity/Vol] 56 U/L Normal 34-104 [facility] Comment on above: Performed By: #### C BC, CMP #### [address] Aspartate aminotransferase [ Enzymatic activity/volume] in Serum or PlasmaOrdered By: Natividad Etelvinaiene on 04-03-2023 AST [Catalytic activity/Vol] 20 U/L Normal 13-39 [facility] Comment on above: Performed By: #### C BC, CMP #### [address] Automated basophil %Ordered By: Natividad Etelvinaiene on 04-03-2023 Basophils/100 WBC (Bld) 0.6 % Normal . [facility] Comment on above: Performed By: #### C BC, CMP #### [address] Automated basophil countOrde red By: Natividad Gricele on 04-03-2023 Basophils (Bld) [#/Vol] 0.1 10*3/uL Normal 0.0-0.2 [facility] Comment on above: Result Comment: PERF ORMED BY: [place] [address] PATHOLOGIST DIE PRESS OPERATOR GOSIA MCADAMS M.D. Performed By: #### C BC, CMP #### [address] Automated blood monocyte cou ntOrdered By: Natividad Gricele on 04-03-2023 Monocytes (Bld) [#/Vol] 1.1 10*3/uL High 0.0-0.8 [facility] Comment on above: Performed By: #### C BC, CMP #### [address] Automated eosinophil %Ordere d By: Natividad Gricele on 04-03-2023 Eosinophils/100 WBC (Bld) 0.8 % Normal . [facility] Comment on above: Performed By: #### C BC, CMP #### [address] Automated eosinophil countOr dered By: Natividad Gregory on 04-03-2023 Eosinophils (Bld) [#/Vol] 0.1 10*3/uL Normal 0.0-0.45 [facility] Comment on above: Performed By: #### C BC, CMP #### [address] Automated monocyte %Ordered By: Natividad Gregory on 04-03-2023 Monocytes/100 WBC (Bld) 10.3 % Normal . [facility] Comment on above: Performed By: #### C BC, CMP #### [address] Automated neutrophil %Ordere d By: Natividad Gregory on 04-03-2023 Neutrophils/100 WBC (Bld) 72.7 % Normal . [facility] Comment on above: Performed By: #### C BC, CMP #### [address] Basic Metabolic Panelon 03-23 Anion gap [Moles/Vol] 13.3 mmol/L Normal 6.0-15.0 e [facility] Comment on above: Performed By: #### B MP #### [address] Calcium [Mass/Vol] 8.9 mg/dL Normal 8.6-10.3 [facility] Comment on above: Performed By: #### B MP #### [address] Chloride [Moles/Vol] 86 mmol/L Low 98-107 [facility] Comment on above: Performed By: #### B MP #### [address] CO2 [Moles/Vol] 26.0 mmol/L Normal 21.0-31.0 [facility] Comment on above: Performed By: #### B MP #### [address] Creatinine [Mass/Vol] 0.65 mg/dL Normal 0.60-1.20 [facility] Comment on above: Performed By: #### B MP #### [address] Creatinine Clr Calc Pharmacy 42.39 Normal [facility] Comment on above: Result Comment: PERF ORMED BY: [place] [address] PATHOLOGIST DIE PRESS OPERATOR GOSIA MCADAMS M.D. Performed By: #### B MP #### [place] [address] [place] GFR/1.73 sq M.predicted MDRD (S/P/Bld) [Vol rate/Area] mL/min/{1.73_m2} Normal [facility] Comment on above: Performed By: #### B MP #### [address] Glucose [Mass/Vol] 170 mg/dL High 70-100 [facility] Comment on above: Result Comment: [place] Glucose Reference Range is dependent on time and content of last meal. Glucose of more than 200 mg/dL in a nonstressed, ambulatory subject supports the diagnosis of Diabetes Mellitus. ADA recommended reference range Performed By: #### B MP #### [address] Potassium [Moles/Vol] 3.3 mmol/L Low 3.5-5.1 [facility] Comment on above: Performed By: #### B MP #### [place] [address] [place] Sodium [Moles/Vol] 122 mmol/L Off scale low 136-145 [facility] Comment on above: Result Comment: Crit ical Result Called to and read back by: NOT FIRST at: 04/03/2023 19:17:43 by:[id number] Performed By: #### B MP #### [place] [address] [place] Urea nitrogen [Mass/Vol] 7 mg/dL Normal 7-25 [facility] Comment on above: Performed By: #### B MP #### [address] Anion gap [Moles/Vol] 14.6 mmol/L Normal 6.0-15.0 Th e [facility] Comment on above: Performed By: #### B MP #### [address] Calcium [Mass/Vol] 8.8 mg/dL Normal 8.6-10.3 [facility] Comment on above: Performed By: #### B MP #### [address] Chloride [Moles/Vol] 81 mmol/L Low 98-107 [facility] Comment on above: Performed By: #### B MP #### [address] CO2 [Moles/Vol] 26.8 mmol/L Normal 21.0-31.0 [facility] Comment on above: Performed By: #### B MP #### [address] Creatinine [Mass/Vol] 0.61 mg/dL Normal 0.60-1.20 [facility] Comment on above: Performed By: #### B MP #### [address] Creatinine Clr Calc Pharmacy 42.39 Normal [facility] Comment on above: Result Comment: PERF ORMED BY: [place] [address] PATHOLOGIST DIE PRESS OPERATOR GOSIA MCADAMS M.D. Performed By: #### B MP #### [place] [address] [place] GFR/1.73 sq M.predicted MDRD (S/P/Bld) [Vol rate/Area] mL/min/{1.73_m2} Normal [facility] Comment on above: Performed By: #### B MP #### [address] Glucose [Mass/Vol] 108 mg/dL High 70-100 [facility] Comment on above: Result Comment: [place] Glucose Reference Range is dependent on time and content of last meal. Glucose of more than 200 mg/dL in a nonstressed, ambulatory subject supports the diagnosis of Diabetes Mellitus. ADA recommended reference range Performed By: #### B MP #### [address] Potassium [Moles/Vol] 3.4 mmol/L Low 3.5-5.1 [facility] Comment on above: Performed By: #### B MP #### [address] Sodium [Moles/Vol] 119 mmol/L Off scale low 136-145 [facility] Comment on above: Result Comment: Crit ical Result Called to and read back by: NOT FIRST TIME CRITICAL at: 04/03/2023 14:56:28 by:SUN Performed By: #### B MP #### [address] Urea nitrogen [Mass/Vol] 7 mg/dL Normal 7-25 [facility] Comment on above: Performed By: #### B MP #### [address] Anion gap [Moles/Vol] 16.6 mmol/L High 6.0-15.0 Th e [facility] Comment on above: Performed By: #### B MP #### [place] [address] [place] Calcium [Mass/Vol] 9.0 mg/dL Normal 8.6-10.3 [facility] Comment on above: Performed By: #### B MP #### [place] [address] [place] Chloride [Moles/Vol] 81 mmol/L Low 98-107 [facility] Comment on above: Performed By: #### B MP #### [place] [address] [place] CO2 [Moles/Vol] 25.7 mmol/L Normal 21.0-31.0 The [facility] Comment on above: Performed By: #### B MP #### [address] Creatinine [Mass/Vol] 0.63 mg/dL Normal 0.60-1.20 [facility] Comment on above: Performed By: #### B MP #### [address] Creatinine Clr Calc Pharmacy 42.39 Normal [facility] Comment on above: Result Comment: PERF ORMED BY: [place] [address] PATHOLOGIST DIE PRESS OPERATOR GOSIA MCADAMS M.D. Performed By: #### B MP #### [address] Performed By: #### U ROSMO, KERRY #### [address] GFR/1.73 sq M.predicted MDRD (S/P/Bld) [Vol rate/Area] mL/min/{1.73_m2} Normal [facility] Comment on above: Performed By: #### B MP #### [address] Performed By: #### U ROSMO, KERRY #### [address] Glucose [Mass/Vol] 123 mg/dL High 70-100 [facility] Comment on above: Result Comment: [facility] Glucose Reference Range is dependent on time and content of last meal. Glucose of more than 200 mg/dL in a nonstressed, ambulatory subject supports the diagnosis of Diabetes Mellitus. ADA recommended reference range Performed By: #### B MP #### [address] Potassium [Moles/Vol] 3.3 mmol/L Low 3.5-5.1 [facility] Comment on above: Performed By: #### B MP #### [address] Sodium [Moles/Vol] 120 mmol/L Off scale low 136-145 [facility] Comment on above: Result Comment: Crit ical Result Called to and read back by: NOT FIRST TIME CRITICAL at: 04/03/2023 13:00:21 by:[email or web address] Performed By: #### B MP #### [address] Urea nitrogen [Mass/Vol] 7 mg/dL Normal 7-25 [facility] Comment on above: Performed By: #### B MP #### [facility] [address] Anion gap [Moles/Vol] 10.9 mmol/L Normal 6.0-15.0 e [facility] Comment on above: Performed By: #### U ROSMO, KERRY #### [address] Calcium [Mass/Vol] 8.6 mg/dL Normal 8.6-10.3 [facility] Comment on above: Performed By: #### U ROSMO, KERRY #### [place] [address] [place] Chloride [Moles/Vol] 82 mmol/L Low 98-107 [facility] Comment on above: Performed By: #### U ROSMO, KERRY #### [place] [address] [place] CO2 [Moles/Vol] 28.3 mmol/L Normal 21.0-31.0 The [facility] Comment on above: Performed By: #### U ROSMO, KERRY #### [place] [address] [place] Creatinine [Mass/Vol] 0.60 mg/dL Normal 0.60-1.20 [facility] Comment on above: Performed By: #### U ROSMO, KERRY #### [place] [address] [place] Glucose [Mass/Vol] 121 mg/dL High 70-100 [facility] Comment on above: Result Comment: [place] Glucose Reference Range is dependent on time and content of last meal. Glucose of more than 200 mg/dL in a nonstressed, ambulatory subject supports the diagnosis of Diabetes Mellitus. ADA recommended reference range Performed By: #### U ROSMO, KERRY #### [facility] [address] Potassium [Moles/Vol] 3.2 mmol/L Low 3.5-5.1 [facility] Comment on above: Performed By: #### U ROSMO, KERRY #### [address] Sodium [Moles/Vol] 118 mmol/L Off scale low 136-145 [facility] Comment on above: Result Comment: Crit ical Result Called to and read back by: NOT FIRST TIME at: 04/03/2023 08:56:25 by:[id number] Performed By: #### U ROSMO, KERRY #### [address] Urea nitrogen [Mass/Vol] 5 mg/dL Low 7-25 [facility] Comment on above: Performed By: #### U ROSMO, KERRY #### [address] Anion gap [Moles/Vol] 14.1 mmol/L Normal 6.0-15.0 Th [facility] Comment on above: Performed By: #### B MP #### [address] Calcium [Mass/Vol] 8.3 mg/dL Low 8.6-10.3 [facility] Comment on above: Performed By: #### B MP #### [place] [address] [place] Chloride [Moles/Vol] 82 mmol/L Low 98-107 [facility] Comment on above: Performed By: #### B MP #### [place] [address] [place] CO2 [Moles/Vol] 25.8 mmol/L Normal 21.0-31.0 [facility] Comment on above: Performed By: #### B MP #### [place] [address] [place] Creatinine [Mass/Vol] 0.59 mg/dL Low 0.60-1.20 [facility] Comment on above: Performed By: #### B MP #### [place] [address] [place] Creatinine Clr Calc Pharmacy 42.94 Normal [facility] Comment on above: Result Comment: PERF ORMED BY: [place] [address] PATHOLOGIST DIE PRESS OPERATOR GOSIA MCADAMS M.D. Performed By: #### B MP #### [place] [address] [place] GFR/1.73 sq M.predicted MDRD (S/P/Bld) [Vol rate/Area] mL/min/{1.73_m2} Normal [facility] Comment on above: Performed By: #### B MP #### [address] Glucose [Mass/Vol] 102 mg/dL High 70-100 [facility] Comment on above: Result Comment: [facility] Glucose Reference Range is dependent on time and content of last meal. Glucose of more than 200 mg/dL in a nonstressed, ambulatory subject supports the diagnosis of Diabetes Mellitus. ADA recommended reference range Performed By: #### B MP #### [address] Potassium [Moles/Vol] 2.9 mmol/L Off scale low 3.5-5.1 [facility] Comment on above: Result Comment: Crit ical Result Called to and read back by: TADEO BEAUCHAMP at: 04/03/2023 03:37:07 by:[id number] Performed By: #### B MP #### [place] [address] [place] Sodium [Moles/Vol] 119 mmol/L Off scale low 136-145 [facility] Comment on above: Result Comment: Crit ical Result Called to and read back by: TADEO BEAUCHAMP at: 04/03/2023 03:37:07 by:[id number] Performed By: #### B MP #### [place] [id number] [place] Urea nitrogen [Mass/Vol] 6 mg/dL Low 7-25 [facility] Comment on above: Performed By: #### B MP #### [address] Bilirubin.total [Mass/volume ] in Serum or PlasmaOrdered By: Natividad Gregory on 04-03-2023 Bilirubin [Mass/Vol] 0.7 mg/dL Normal 0.3-1.0 [facility] Comment on above: Performed By: #### C BC, CMP #### [address] Complete Blood Count Auto Di ffon 04-03-2023 Mean Corpuscular HGB Conc 35.8 g/dL High 32.0-35.0 [facility] Comment on above: Performed By: #### C BC, CMP #### [address] NRBC% 0.3 /100{WBC} Normal 0-0.5 The [facility] Comment on above: Performed By: #### C BC, CMP #### [address] Comprehensive Metabolic Pane carlos 04-03-2023 Albumin [Mass/Vol] 3.7 g/dL Normal 3.5-5.7 [facility] Comment on above: Performed By: #### C BC, CMP #### [address] Anion gap [Moles/Vol] 12.9 mmol/L Normal 6.0-15.0 Th e [facility] Comment on above: Performed By: #### C BC, CMP #### [address] Calcium [Mass/Vol] 8.5 mg/dL Low 8.6-10.3 [facility] Comment on above: Performed By: #### C BC, CMP #### [address] Chloride [Moles/Vol] 81 mmol/L Low 98-107 [facility] Comment on above: Performed By: #### C BC, CMP #### [address] CO2 [Moles/Vol] 26.1 mmol/L Normal 21.0-31.0 [facility] Comment on above: Performed By: #### C BC, CMP #### [address] Creatinine [Mass/Vol] 0.58 mg/dL Low 0.60-1.20 [facility] Comment on above: Performed By: #### C BC, CMP #### [place] [address] [place] Creatinine Clr Calc Pharmacy 42.94 Normal [facility] Comment on above: Result Comment: PERF ORMED BY: [place] [address] PATHOLOGIST DIE PRESS OPERATOR GOSIA MCADAMS M.D. Performed By: #### C BC, CMP #### [place] [address] [place] GFR/1.73 sq M.predicted MDRD (S/P/Bld) [Vol rate/Area] mL/min/{1.73_m2} Normal [facility] Comment on above: Performed By: #### C BC, CMP #### [address] Glucose [Mass/Vol] 136 mg/dL High 70-100 [facility] Comment on above: Result Comment: [place] Glucose Reference Range is dependent on time and content of last meal. Glucose of more than 200 mg/dL in a nonstressed, ambulatory subject supports the diagnosis of Diabetes Mellitus. ADA recommended reference range Performed By: #### C BC, CMP #### [place] [address] [place] Potassium [Moles/Vol] 3.0 mmol/L Low 3.5-5.1 [facility] Comment on above: Performed By: #### C BC, CMP #### [place] [address] [place] Sodium [Moles/Vol] 117 mmol/L Off scale low 136-145 [facility] Comment on above: Result Comment: Crit ical Result Called to and read back by: EDMAR PATEL at: 04/03/2023 06:09:08 by:[id number] Performed By: #### C BC, CMP #### [address] Urea nitrogen [Mass/Vol] 6 mg/dL Low 7-25 [facility] Comment on above: Performed By: #### C BC, CMP #### [address] Erythrocyte distribution wid th [Ratio] by Automated countOrdered By: Natividad Gregory on 04-03-2023 Erythrocyte distribution width (RBC) [Ratio] 13.9 % Normal 11.9-15.3 [facility] Comment on above: Performed By: #### C BC, CMP #### [address] Erythrocytes [#/volume] in B lood by Automated countOrdered By: Natividad Gregory on 04-03-2023 RBC (Bld) [#/Vol] 4.02 10*6/uL Normal 3.60-5.00 [facility] Comment on above: Performed By: #### C BC, CMP #### [address] Hematocrit [Volume Fraction] of Blood by Automated countOrdered By: Natividad Gregory on 04-03-2023 Hematocrit (Bld) [Volume fraction] 35.5 % Normal 34.0-46.4 [facility] Comment on above: Performed By: #### C BC, CMP #### [place] [address] [place] Hemoglobin [Mass/volume] in BloodOrdered By: Natividad Gregory on 04-03-2023 Hemoglobin (Bld) [Mass/Vol] 12.7 g/dL Normal 11.8-15.4 [facility] Comment on above: Performed By: #### C BC, CMP #### [address] Leukocytes [#/volume] correc sofiya for nucleated erythrocytes in Blood by Automated counOrdered By: Natividad Gregory on 04-03-2023 WBC corrected for nucl RBC Auto (Bld) [#/Vol] 10.6 10*3/uL 3.8-11.6 [facility] Leukocytes [#/volume] in Blo od by Automated countOrdered By: Natividad Gregory on 04-03-2023 WBC (Bld) [#/Vol] 10.6 10*3/uL Normal 3.8-11.6 [facility] Comment on above: Performed By: #### C TIFFANIE, CMP #### [address] Lymphocytes [#/volume] in Bl ood by Automated countOrdered By: Natividad Gregory on 04-03-2023 Lymphocytes (Bld) [#/Vol] 1.7 10*3/uL Normal 1.00-4.8 [facility] Comment on above: Performed By: #### C TIFFANIE, CMP #### [address] Lymphocytes/100 leukocytes i n Blood by Automated countOrdered By: Natividad Gregory on 04-03-2023 Lymphocytes/100 WBC (Bld) 15.6 % Normal . [facility] Comment on above: Performed By: #### C TIFFANIE, CMP #### [address] MCH [Entitic mass] by Automa sofiya countOrdered By: Natividad Gregory on 04-03-2023 MCH (RBC) [Entitic mass] 31.6 pg Normal 24.7-34.3 [facility] Comment on above: Performed By: #### C TIFFANIE, CMP #### [address] MCHC Auto (RBC) [Mass/Vol]Or dered By: Natividad Gregory on 04-03-2023 MCHC (RBC) [Mass/Vol] 35.8 g/dL 32.0-35.0 [facility] MCV [Entitic volume] by Auto mated countOrdered By: Natividad Gregory on 04-03-2023 MCV (RBC) [Entitic vol] 88.3 fL Normal 80-100 F [facility] Comment on above: Performed By: #### C BC, CMP #### [place] [address] [place] Neutrophils [#/volume] in Bl ood by Automated countOrdered By: Natividad Gregory on 04-03-2023 Neutrophils (Bld) [#/Vol] 7.7 10*3/uL Normal 1.8-7.7 [facility] Comment on above: Performed By: #### C TIFFANIE, CMP #### [address] Nucleated erythrocytes [Pres ence] in Blood by Automated countOrdered By: Natividad Gregory on 04-03-2023 Nucleated RBC Auto Ql (Bld) 0.3 /100{WBC} 0-0.5 [facility] Platelet mean volume [Entiti c volume] in Blood by Automated countOrdered By: Natividad Gregory on 04-03-2023 Platelet mean volume (Bld) [Entitic vol] 7.0 fL Normal 6.3-10.7 [facility] Comment on above: Performed By: #### C TIFFAINE, CMP #### [place] [address] [place] Platelets [#/volume] in Bloo d by Automated countOrdered By: Natividad Gregory on 04-03-2023 Platelets (Bld) [#/Vol] 424 10*3/uL Normal 150-450 [facility] Comment on above: Performed By: #### C BC, CMP #### [place] [address] [place] Protein [Mass/volume] in Ser um or PlasmaOrdered By: Natividad Gregory on 04-03-2023 Protein [Mass/Vol] 6.1 g/dL Low 6.4-8.9 [facility] Comment on above: Performed By: #### C BC, CMP #### [address] Serum globulin measurement b y calculation (mass/volume)Ordered By: Natividad Gregory on 04-03-2023 Globulin (S) [Mass/Vol] 2.4 g/dL Normal F [facility] Comment on above: Performed By: #### C BC, CMP #### [address] Serum or plasma albumin/glob ulin mass ratioOrdered By: Natividad Gregory on 04-03-2023 Albumin/Globulin [Mass ratio] 1.5 {ratio} Normal [facility] Comment on above: Performed By: #### C BC, CMP #### [address] Sodiumon 04-03-2023 Sodium [Moles/Vol] 124 mmol/L Off scale low 136-145 [facility] Comment on above: Result Comment: Crit ical Result Called to and read back by: SAMMIE GOULD at: 04/03/2023 22:42:55 by:[email or web address] PERFORMED BY: [place] [address] PATHOLOGIST DIE PRESS OPERATOR GOSIA MCADAMS M.D. Performed By: #### N A #### [address] Basic Metabolic Panelon 03-23 Anion gap [Moles/Vol] 12.8 mmol/L Normal 6.0-15.0 Th e [facility] Comment on above: Performed By: #### U ROSMO, KERRY #### [address] Calcium [Mass/Vol] 8.8 mg/dL Normal 8.6-10.3 [facility] Comment on above: Performed By: #### U ROSMO, KERRY #### [address] Chloride [Moles/Vol] 81 mmol/L Low 98-107 [facility] Comment on above: Performed By: #### U ROSMO, KERRY #### [facility] [address] [place] [address] [place] CO2 [Moles/Vol] 26.3 mmol/L Normal 21.0-31.0 [facility] Comment on above: Performed By: #### U ROSMO, KERRY #### [facility] [address] [place] [address] [place] Creatinine [Mass/Vol] 0.59 mg/dL Low 0.60-1.20 [facility] Comment on above: Performed By: #### U ROSMO, KERRY #### [facility] [address] [place] [address] [place] Creatinine Clr Calc Pharmacy 42.94 Normal [facility] Comment on above: Performed By: #### U ROSMO, KERRY #### [facility] [address] [place] [address] [place] GFR/1.73 sq M.predicted MDRD (S/P/Bld) [Vol rate/Area] mL/min/{1.73_m2} Normal [facility] Comment on above: Performed By: #### U ROSMO, KERRY #### [facility] [address] [place] [address] [place] Glucose [Mass/Vol] 122 mg/dL High 70-100 [facility] Comment on above: Result Comment: [facility] Glucose Reference Range is dependent on time and content of last meal. Glucose of more than 200 mg/dL in a nonstressed, ambulatory subject supports the diagnosis of Diabetes Mellitus. ADA recommended reference range Performed By: #### U ROSMO, KERRY #### [facility] [address] [place] [address] [place] Potassium [Moles/Vol] 3.1 mmol/L Low 3.5-5.1 [facility] Comment on above: Performed By: #### U ROSMO, KERRY #### [facility] [address] [place] [address] [place] Sodium [Moles/Vol] 117 mmol/L Off scale low 136-145 [facility] Comment on above: Result Comment: Crit ical Result Called to and read back by: GERMAIN BEAUCHAMP at: 04/02/2023 21:52:44 by:[id number] Performed By: #### U ROSMO, KERRY #### [facility] [address] Urea nitrogen [Mass/Vol] 7 mg/dL Normal 7-25 [facility] Comment on above: Performed By: #### U ROSMO, KERRY #### [facility] [address] [place] [address] [place] Magnesium [Mass/volume] in S willa or PlasmaOrdered By: Natividad Gregory on 04-02-2023 Magnesium [Mass/Vol] 1.9 mg/dL Normal 1.9-2.7 [facility] Comment on above: Performed By: #### U ROSMO, KERRY #### [facility] [address] [place] [address] No Panel InformationOrdered By: Natividad Gregory on 04-02-2023 Urine Osmolality 298 mosm 250-900 [facility] Osmolality, Urineon 04-02-19 24 Osmolality, Urine 298 mosm Normal 250-900 [facility] Comment on above: Result Comment: PERF ORMED BY: [place] [address] PATHOLOGIST DIE PRESS OPERATOR GOSIA MCADAMS M.D. Performed By: #### U ROSMO, KERRY #### [facility] [address] [place] [address] Sodium [Moles/volume] in Uri neOrdered By: Natividad Gregory on 04-02-2023 Sodium (U) [Moles/Vol] 79 mmol/L Normal [facility] Comment on above: No reference range e stablished Result Comment: No r eference range established PERFORMED BY: [place] [address] PATHOLOGIST DIE PRESS OPERATOR GOSIA MCADAMS M.D. Performed By: #### U ROSMO, KERRY #### [facility] [address] [place] [address] Thyrotropin [Units/volume] i n Serum or PlasmaOrdered By: Natividad Gregory on 04-02-2023 TSH Qn 5.76 m[IU]/L High 0.45-5.33 [facility] Comment on above: Result Comment: PERF ORMED BY: [facility] [address] [place] [address] PATHOLOGIST DIE PRESS OPERATOR GOSIA MCADAMS M.D. Performed By: #### U ROSMO, KERRY #### [facility] [address] Office Visiton 01-11-2023 Follow-up visit [id number] Hiram Madrid 1935 F Date Provider Department Center 01/11/2023 Kalee-LESLY ALANIZ SON[facility] Family History Problem Relation Age of Onset Hypertension Mother Lupus Mother Coronary artery disease Mother Heart attack Mother Hypertension Father Aneurysm Father Coronary artery disease Father Hypertension Sister Lupus Sister Family Status - Relation Status Age at Mother Father Sister Level of Service:73698 OR OFFICE/OUTPATIENT ESTABLISHED MOD MDM 30-39 MIN Normal [facility] Lab Reportson 12-23-2022 Lab Reports [id number] EF#1.00TIFF Normal [facility] Urology Office/Clinic Noteon 12-23-2022 Urology [...] Pt presented to ER due to syncope. [place] was found incidentally on CT. CT AP [...] Contact Information ABDULLAHI NOONAN, MIKAYLA Pereira, URL [address] [place] [address] [phone] Additional Instructions: 6 mos w/ renal fxn (per PCP) Patient Education Hydronephrosis Documentation recorded by the scribkostas Gan accurately reflects the services(s) I performed [...] No qualifying data Procedure/Surgical History Appendectomy, Bilateral salpingo-oophorecto my, Cataract extraction and insertion of intraocular lens, Cholecystectomy, Colonoscopy, Procedure on back, Tonsillectomy. Medications amLODIPine 10 mg Tab aspirin 81 mg oral capsule, Oral, q4hr, Not taking carvedilol, Oral Cipro 250 mg Tab, 250 mg= 1 tab(s), Oral, Daily, Not taking hydrochlorothiazide , Oral, Daily levothyroxine 88 mcg (0.088 mg) Tab losartan 100 mg Tab Potassium Chloride (Zwh-Ckaw-Ulx 10), Oral, BID pravastatin 80 mg Tab [...] influenza virus vaccine, (more content not included)... [facility] Comment on above: Result Comment: Elec tronically Signed By: MIKAYLA WEISS PA-C\.br\Date and Time Signed: 12/23/22 12:13 EDT\.br\Electronically Co-Signed By: Jacquie Gan\.br\Date and Time Co-Signed: 12/22/22 12:27 EDT Ambulatory Visit Summaryon 1 02-21-2022 Ambulatory Visit Summary HIRAM MADRID :1935 Visit Date:12/22/2022 Ambulatory Visit Instructions Your Diagnosis Hydronephrosis, right Ureteral stenosis Tests Performed Urnls Dip Stick Auto w/o Microscopy POC 34807 US Renal -- Results Pending -- Please [...] 100 mg Tab) potassium chloride (Potassium Chloride (Fyi-Vgvc-Zys 10)) pravastatin (pravastatin 80 mg Tab) Procedures Performed Appendectomy, Bilateral salpingo-oophorecto my, Cataract extraction and insertion of intraocular lens, Cholecystectomy, Colonoscopy, Procedure on back, Tonsillectomy. Discharge Vitals Blood Pressure 124/84 Height 155 cm Height 61 in Weight 64.8 kg Weight 142.56 lb BMI 26.97 What to do next Scheduled Follow-Up Appointments June. 2023 9:30 AM EDT With: MIKAYLA WEISS PA-C Where: [facility] Patient Educationon 12-23-19 Patient Education [...] Follow these instructions at home: ? Take ivnl-zii-fbnnrts and prescription medicines only as told by [...] provider. Document Revised: 05/26/2020 Document Reviewed: 05/26/2020 [employer] Patient Education ? 2022 [employer] Normal [facility] RAD - Ultrasound Reporton RAD - Ultrasound Report [id number] #1.00TIFF Normal [facility] Orders Onlyon 10-25-2022 Orders Only [id number] Hiram Madrid 1935 F [facility] Provider Department Center 10/25/2022 LESLY GASPAR [facility] Family History Problem Relation Age of Onset Hypertension Mother Lupus Mother Coronary artery disease Mother Heart attack Mother Hypertension Father Aneurysm Father Coronary artery disease Father Hypertension Sister Lupus Sister Family Status - Relation Status Age at Mother Father Sister Normal [facility] 37on 10-14-2022 37 Increase coreg/carvedilol to 25 mg twice a day- you have 12.5 mg tabs now so take 2 twice a day until this bottle is gone- your next refill will be the higher dose of 25 mg bid. Have labs drawn Normal [facility] Office Visiton 10-14-2022 Follow-up visit [id number] Hiram Madrid 1935 F Date Provider Department Center 10/14/2022 LESLY GASPAR [facility] Family History Problem Relation Age of Onset Hypertension Mother Lupus Mother Coronary artery disease Mother Heart attack Mother Hypertension Father Aneurysm Father Coronary artery disease Father Hypertension Sister Lupus Sister Family Status - Relation Status Age at Mother Father Sister Level of Service:76203 OR OFFICE/OUTPATIENT ESTABLISHED MOD MDM 30-39 MIN Normal [facility] Alanine aminotransferase [En zymatic activity/volume] in Serum or PlasmaOrdered By: Camacho Cooper on 08-05-2022 ALT [Catalytic activity/Vol] 16 U/L 7-52 [facility] Albumin [Mass/volume] in Ser um or Plasma by Bromocresol green (BCG) dye binding methoOrdered By: Camacho Cooper on 08-05-2022 Albumin BCG dye [Mass/Vol] 4.4 g/dL 3.5-5.7 [facility] Alkaline phosphatase [Enzyma tic activity/volume] in Serum or PlasmaOrdered By: Camacho Cooper on 08-05-2022 ALP [Catalytic activity/Vol] 61 U/L 34-104 [facility] Aspartate aminotransferase [ Enzymatic activity/volume] in Serum or PlasmaOrdered By: Camacho Cooper on 08-05-2022 AST [Catalytic activity/Vol] 21 U/L 13-39 [facility] Automated erythrocytes count in urine sediment (number/area)Ordered By: Camacho Cooper on 08-05-2022 RBC Auto (Urine sed) [#/Area] 0-1 [HPF] 0-4 [facility] Automated leukocytes count i n urine sediment (number/area)Ordered By: Camacho Cooper on 08-05-2022 WBC Auto (Urine sed) [#/Area] 1-2 [HPF] 0-4 [facility] Basophils Auto (Bld) [#/Vol] Ordered By: Camacho Cooper on 08-05-2022 Basophils (Bld) [#/Vol] 0.1 10*3/uL 0.0-0.2 [facility] Basophils/100 WBC Auto (Bld) Ordered By: Camacho Cooper on 08-05-2022 Basophils/100 WBC (Bld) 0.4 % . F [facility] Bilirubin Test strip Ql (U)O rdered By: Camacho Cooper on 08-05-2022 Bilirubin Ql (U) Negative Negative [facility] Bilirubin.direct [Mass/volum e] in Serum or PlasmaOrdered By: Camacho Cooper on 08-05-2022 Bilirubin.direct [Mass/Vol] 0.10 mg/dL 0.03-0.18 [facility] Bilirubin.total [Mass/volume ] in Serum or PlasmaOrdered By: Camacho Cooper on 08-05-2022 Bilirubin [Mass/Vol] 0.7 mg/dL 0.3-1.0 [facility] Calcium [Mass/volume] in Ser um or PlasmaOrdered By: Camacho Cooper on 08-05-2022 Calcium [Mass/Vol] 9.7 mg/dL 8.6-10.3 [facility] Carbon dioxide, total [Moles /volume] in Serum or PlasmaOrdered By: Camacho Cooper on 08-05-2022 CO2 [Moles/Vol] 23.2 mmol/L 21.0-31.0 [facility] Chloride [Moles/volume] in S willa or PlasmaOrdered By: Camacho Cooper on 08-05-2022 Chloride [Moles/Vol] 87 mmol/L 98-107 [facility] Color Auto (U)Ordered By: Ender Cooper on 08-05-2022 Color (U) Yellow Yellow [facility] Creatinine [Mass/volume] in Serum or PlasmaOrdered By: Camacho Cooper on 08-05-2022 Creatinine [Mass/Vol] 1.03 mg/dL 0.60-1.20 [facility] Eosinophils Auto (Bld) [#/Vo l]Ordered By: Camacho Cooper on 08-05-2022 Eosinophils (Bld) [#/Vol] 0.1 10*3/uL 0.0-0.45 [facility] Eosinophils/100 WBC Auto (Bl d)Ordered By: Camacho Cooper on 08-05-2022 Eosinophils/100 WBC (Bld) 0.6 % . [facility] Erythrocyte distribution wid th Auto (RBC) [Ratio]Ordered By: Camacho Cooper on 08-05-2022 Erythrocyte distribution width (RBC) [Ratio] 13.6 % 11.9-15.3 [facility] Globulin Calc (S) [Mass/Vol] Ordered By: Camacho Cooper on 08-05-2022 Globulin (S) [Mass/Vol] 2.9 g/dL [facility] Glucose [Mass/volume] in Ser um or PlasmaOrdered By: Camacho Cooper on 08-05-2022 Glucose [Mass/Vol] 156 mg/dL 70-100 [facility] Comment on above: ADA recommended refe rence rangeRandom Glucose Reference Range is dependent on time and content of last meal. Glucose of more than 200 mg/dL in a nonstressed, ambulatory subject supports the diagnosis of Diabetes Mellitus. Hematocrit Auto (Bld) [Volum e fraction]Ordered By: Camacho Cooper on 08-05-2022 Hematocrit (Bld) [Volume fraction] 37.3 % 34.0-46.4 [facility] Hemoglobin [Mass/volume] in BloodOrdered By: Camacho Cooper on 08-05-2022 Hemoglobin (Bld) [Mass/Vol] 13.0 g/dL 11.8-15.4 [facility] Ketones Auto test strip (U) [Mass/Vol]Ordered By: Camacho Cooper on 08-05-2022 Ketones (U) [Mass/Vol] Negative Negative [facility] - UrinalysisOrder ed By: Camacho Cooper on 08-05-2022 Hyaline casts LM Ql (Urine sed) None seen [LPF] 0-8 [facility] Leukocytes [#/volume] correc sofiya for nucleated erythrocytes in Blood by Automated counOrdered By: Camacho Cooper on 08-05-2022 WBC corrected for nucl RBC Auto (Bld) [#/Vol] 14.2 10*3/uL 3.8-11.6 [facility] Lipase [Enzymatic activity/v olume] in Serum or PlasmaOrdered By: Camacho Cooper on 08-05-2022 Lipase [Catalytic activity/Vol] 23.0 U/L 11.0-82.0 [facility] Lymphocytes Auto (Bld) [#/Vo l]Ordered By: Camacho Cooper on 08-05-2022 Lymphocytes (Bld) [#/Vol] 3.1 10*3/uL 1.00-4.8 [facility] Lymphocytes/100 WBC Auto (Bl d)Ordered By: Camacho Cooper on 08-05-2022 Lymphocytes/100 WBC (Bld) 21.9 % . [facility] MCH Auto (RBC) [Entitic mass ]Ordered By: Camacho Cooper on 08-05-2022 MCH (RBC) [Entitic mass] 31.6 pg 24.7-34.3 [facility] MCHC Auto (RBC) [Mass/Vol]Or dered By: Camacho Cooper on 08-05-2022 MCHC (RBC) [Mass/Vol] 35.0 g/dL 32.0-35.0 [facility] MCV Auto (RBC) [Entitic vol] Ordered By: Camacho Cooper on 08-05-2022 MCV (RBC) [Entitic vol] 90.4 fL 80-100 [facility] Monocyte distribution width [Entitic volume] in Blood by AutomatedOrdered By: Camacho Cooper on 08-05-2022 Monocyte distribution width Auto (Bld) [Entitic vol] 20.58 % 0.00-20.00 [facility] Comment on above: For adults in ED, MD W > 20.0 may be associated with a higher risk of sepsis during the first 12 hrs of hospital admission Monocytes Auto (Bld) [#/Vol] Ordered By: Camacho Cooper on 08-05-2022 Monocytes (Bld) [#/Vol] 1.4 10*3/uL 0.0-0.8 [facility] Monocytes/100 WBC Auto (Bld) Ordered By: Camacho Cooper on 08-05-2022 Monocytes/100 WBC (Bld) 9.6 % . [facility] Neutrophils Auto (Bld) [#/Vo l]Ordered By: Camacho Cooper on 08-05-2022 Neutrophils (Bld) [#/Vol] 9.6 10*3/uL 1.8-7.7 [facility] Neutrophils/100 WBC Auto (Bl d)Ordered By: Camacho Cooper on 08-05-2022 Neutrophils/100 WBC (Bld) 67.5 % . [facility] Nitrite Test strip Ql (U)Ord ered By: Camacho Cooper on 08-05-2022 Nitrite Ql (U) Negative Negative [facility] No Panel InformationOrdered By: Camacho Cooper on 08-05-2022 Estimated GFR (CKD-EPI) 53.284 mL/Min [facility] Creatinine Clearance (Chem 35.13 [facility] Nucleated erythrocytes [Pres ence] in Blood by Automated countOrdered By: Camacho Cooper on 08-05-2022 Nucleated RBC Auto Ql (Bld) 0.1 /100{WBC} 0-0.5 [facility] Platelet mean volume Auto (B ld) [Entitic vol]Ordered By: Camacho Cooper on 08-05-2022 Platelet mean volume (Bld) [Entitic vol] 7.2 fL 6.3-10.7 [facility] Platelets Auto (Bld) [#/Vol] Ordered By: Camacho Cooper on 08-05-2022 Platelets (Bld) [#/Vol] 500 10*3/uL 150-450 [facility] Potassium [Moles/volume] in Serum or PlasmaOrdered By: Camacho Cooper on 08-05-2022 Potassium [Moles/Vol] 3.0 mmol/L 3.5-5.1 [facility] Protein Auto test strip (U) [Mass/Vol]Ordered By: Camacho Cooper on 08-05-2022 Protein (U) [Mass/Vol] Negative Negative [facility] Protein [Mass/volume] in Ser um or PlasmaOrdered By: Camacho Cooper on 08-05-2022 Protein [Mass/Vol] 7.3 g/dL 6.4-8.9 [facility] RBC Auto (Bld) [#/Vol]Ordere d By: Camacho Cooper on 08-05-2022 RBC (Bld) [#/Vol] 4.13 10*6/uL 3.60-5.00 [facility] Serum or plasma albumin/glob ulin mass ratioOrdered By: Camacho Cooper on 08-05-2022 Albumin/Globulin [Mass ratio] 1.5 {ratio} [facility] Serum or plasma anion gap de terminationOrdered By: Camacho Cooper on 08-05-2022 Anion gap [Moles/Vol] 17.8 mmol/L [facility] or plasma non-glucuron idated bilirubin measurement (mass/volume)Ordered By: Camacho Cooper on 08-05-2022 Bilirubin.indirect [Mass/Vol] 0.6 mg/dL [facility] Sodium [Moles/volume] in Ser um or PlasmaOrdered By: Camacho Cooper on 08-05-2022 Sodium [Moles/Vol] 125 mmol/L 136-145 [facility] Specific gravity Auto test s trip (U) [Rel density]Ordered By: Camacho Cooper on 08-05-2022 Specific gravity (U) [Rel density] 1.009 1.001-1.030 [facility] Squamous epithelial cells de tection in urine sediment by light microscopyOrdered By: Camacho Cooper on 08-05-2022 Epithelial cells.squamous LM Ql (Urine sed) 0-1 [HPF] 0-2 [facility] Troponin I.cardiac [Mass/vol ume] in Serum or Plasma by Detection limit <= 0.01 ng/Ordered By: Camacho Cooper on 08-05-2022 Troponin I.cardiac DL <= 0.01 ng/mL [Mass/Vol] 7.7 pg/mL 0.0-15.0 [facility] Urea nitrogen [Mass/volume] in Serum or PlasmaOrdered By: Camacho Cooper on 08-05-2022 Urea nitrogen [Mass/Vol] 12 mg/dL 7-25 [facility] Urine bacteria detection by automated methodOrdered By: Camacho Cooper on 08-05-2022 Bacteria Auto Ql (U) None seen None Seen [facility] Urine clarity by refractomet ry automatedOrdered By: Camacho Cooper on 08-05-2022 Clarity Refractometry automated (U) Cloudy Clear [facility] Urine glucose measurement by automated test strip (mass/volume)Ordered By: Camacho Cooper on 08-05-2022 Glucose Auto test strip (U) [Mass/Vol] Normal mg/dL Normal [facility] Urine hemoglobin detection b y automated test stripOrdered By: Camacho Cooper on 08-05-2022 Hemoglobin Auto test strip Ql (U) Negative Negative [facility] Urine leukocyte esterase det ection by automated test stripOrdered By: Camacho Cooper on 08-05-2022 Leukocyte esterase Auto test strip Ql (U) 1+ Negative [facility] Urobilinogen Auto test strip (U) [Mass/Vol]Ordered By: Camacho Cooper on 08-05-2022 Urobilinogen (U) [Mass/Vol] Normal mg/dL Normal [facility] WBC Auto (Bld) [#/Vol]Ordere d By: Camacho Cooper on 08-05-2022 WBC (Bld) [#/Vol] 14.2 10*3/uL 3.8-11.6 [facility] pH Auto test strip (U)Ordere d By: Camacho Cooper on 08-05-2022 pH (U) 7.0 [pH] 5.0-9.0 [facility] BNPon 06-13-2022 Natriuretic peptide B (Bld) [Mass/Vol] 142.0 pg/mL Normal <=1,800.0 [facility] Comment on above: Performed By: #### T SH, BMP #### [facility] [address] [place] [address] Dr. Tasha Dodson CBC AUTO DIFFon 06-13-2022 BASO # 0.1 103/ul Normal 0.0-0.1 [facility] Comment on above: Performed By: #### T SH, BMP #### [facility] [address] [place] [address] Dr. Tasha Dodson Basophils/100 WBC (Bld) 1.0 % Normal 0.2-2.0 [facility] Comment on above: Performed By: #### T SH, BMP #### [facility] [address] [place] [address] Dr. Tasha Dodson EO # 0.3 103/ul Normal 0.0-0.7 [facility] Comment on above: Performed By: #### T SH, BMP #### [facility] [address] [place] [address] Dr. Tasha Dodson Eosinophils/100 WBC (Bld) 2.6 % Normal 0.9-7.0 [facility] Comment on above: Performed By: #### T SH, BMP #### [facility] [address] [place] [address] Dr. Tasha Dodson Erythrocyte distribution width (RBC) [Ratio] 13.4 % Normal 11.0-15.0 [facility] Comment on above: Performed By: #### T SH, BMP #### [facility] [address] [place] [address] Dr. Tasha Dodson Hematocrit (Bld) [Volume fraction] 39.5 % Normal 36.0-48.0 [facility] Comment on above: Performed By: #### T SH, BMP #### [facility] [address] [place] [address] Dr. Tasha Dodson Hemoglobin (Bld) [Mass/Vol] 13.1 g/dL Normal 12.0-16.0 [facility] Comment on above: Performed By: #### T SH, BMP #### [facility] [address] [place] [address] Dr. Tasha Dodson IG # 0.07 10e3/ul Critically high 0.00-0.03 [facility] Comment on above: Performed By: #### T SH, BMP #### [facility] [address] [place] [address] Dr. Tasha Dodson IG % 0.6 % Critically high 0.0-0.5 [facility] Comment on above: Performed By: #### T SH, BMP #### [facility] [address] [place] [address] Dr. Tasha Dodson LYMPH # 2.5 103/ul Normal 1.2-3.8 [facility] Comment on above: Performed By: #### T SH, BMP #### [facility] [address] [place] [address] Dr. Tasha Dodson Lymphocytes/100 WBC (Bld) 22.9 % Normal 20.5-60.0 [facility] Comment on above: Performed By: #### T SH, BMP #### [facility] [address] [place] [address] Dr. Tasha Dodson MANUAL DIFF REQ NO Normal [facility] Comment on above: Performed By: #### T SH, BMP #### [facility] [address] [place] [address] Dr. Tasha Dodson MCH (RBC) [Entitic mass] 30.7 pg Normal 26.7-34.0 [facility] Comment on above: Performed By: #### T SH, BMP #### [facility] [address] [place] [address] Dr. Tasha Dodson MCHC (RBC) [Mass/Vol] 33.2 g/dL Normal 29.9-35.2 [facility] Comment on above: Performed By: #### T SH, BMP #### [facility] [address] [place] [address] Dr. Tasha Dodson MCV (RBC) [Entitic vol] 92.5 fL Normal 81.0-99.0 [facility] Comment on above: Performed By: #### T SH, BMP #### [facility] [address] [place] [address] Dr. Tasha Dodson MONO # 0.8 103/ul Normal 0.3-0.8 [facility] Comment on above: Performed By: #### T SH, BMP #### [facility] [address] [place] [address] Dr. Tasha Dodson Monocytes/100 WBC (Bld) 7.0 % Normal 1.7-12.0 [facility] Comment on above: Performed By: #### T SH, BMP #### [facility] [address] [place] [address] Dr. Tasha Dodson NEUT # 7.2 103/ul Critically high 1.4-6.5 [facility] Comment on above: Performed By: #### T SH, BMP #### [facility] [address] [address] [address] Tasha Dodson Neutrophils/100 WBC (Bld) 65.9 % Normal 43.0-75.0 [facility] Comment on above: Performed By: #### T JESI, BMP #### [facility] [address] [place] [address] Dr. Tasha Dodson Platelet mean volume (Bld) [Entitic vol] 8.0 fL Critically low 9.5-13.5 [facility] Comment on above: Performed By: #### T JESI, BMP #### [facility] [address] [place] [address] Dr. Tasha Dodson PLT 449 103/ul Normal 150-450 [facility] Comment on above: Performed By: #### T JESI, BMP #### [facility] [address] [place] [address] Dr. Tasha Dodson RBC 4.27 106/ul Normal 4.20-5.40 [facility] Comment on above: Performed By: #### T JESI, BMP #### [facility] [address] [place] [address] Dr. Tasha Dodson WBC 10.9 103/ul Normal 4.0-11.0 [facility] Comment on above: Performed By: #### T JESI, BMP #### [facility] [address] [place] [address] Dr. Tasha Dodson FREE THYROXINE INDEX T7on FTI 3.67 Normal 1.30-4.50 [facility] Comment on above: Performed By: #### T JESI, BMP #### [facility] [address] [place] [address] Dr. Tasha Ddoson T3U 36.0 % Normal 30.0-39.0 [facility] Comment on above: Performed By: #### T JESI, BMP #### [facility] [address] [place] [address] Dr. Tasha Dodson T4 [Mass/Vol] 10.20 ug/dL Normal 4.80-13.90 [facility] Comment on above: Performed By: #### T JESI, BMP #### [facility] [address] [address] [address] Tasha Dodson PROF CHEM 8 (BAS METB)on Anion gap [Moles/Vol] 13.8 mmol/L Normal [facility] Comment on above: Performed By: #### T SH, BMP #### [facility] [address] [place] [address] Dr. Tasha Dodson Calcium [Mass/Vol] 9.8 mg/dL Normal 8.5-10.1 [facility] Comment on above: Performed By: #### T SH, BMP #### [facility] [address] [place] [address] Dr. Tasha Dodson Chloride [Moles/Vol] 95 mmol/L Critically low 98-107 [facility] Comment on above: Performed By: #### T SH, BMP #### [facility] [address] [place] [address] Dr. Tasha Dodson CO2 [Moles/Vol] 30.5 mmol/L Normal 21.0-32.0 [facility] Comment on above: Performed By: #### T SH, BMP #### [facility] [address] [place] [address] Dr. Tasha Dodson Creatinine [Mass/Vol] 0.78 mg/dL Normal 0.55-1.02 [facility] Comment on above: Performed By: #### T SH, BMP #### [facility] [address] [place] [address] Dr. Tasha Dodson EGFR-AF BELARUSIAN >60 Normal >=60 [facility] Comment on above: Performed By: #### T SH, BMP #### [facility] [address] [place] [address] Dr. Tasha Dodson EGFR-NON AF BELARUSIAN >60 Normal >=60 [facility] Comment on above: Performed By: #### T SH, BMP #### [facility] [address] [place] [address] Dr. Tasha Dodson Glucose [Mass/Vol] 108 mg/dL Critically high 74-106 [facility] Comment on above: Performed By: #### T SH, BMP #### [facility] [address] [place] [address] Dr. Tasha Dodson Potassium [Moles/Vol] 3.3 mmol/L Critically low 3.5-5.1 [facility] Comment on above: Performed By: #### T SH, BMP #### [facility] [address] [place] [address] Dr. Tasha Dodson Sodium [Moles/Vol] 136 mmol/L Normal 136-145 [facility] Comment on above: Performed By: #### T SH, BMP #### [facility] [address] [place] [address] Dr. Tasha Dodson Urea nitrogen [Mass/Vol] 11.0 mg/dL Normal 7.0-18.0 [facility] Comment on above: Performed By: #### T SH, BMP #### [facility] [address] [place] [address] Dr. Tasha Dodson Urea nitrogen/Creatinine [Mass ratio] 14.1 mg/mg Normal [facility] Comment on above: Performed By: #### T SH, BMP #### [facility] [address] [place] [address] Dr. Tasha Dodson TSHon 06-13-2022 TSH 2.583 uIU/mL Normal 0.358-3.740 [facility] Comment on above: Performed By: #### T SH, BMP #### [facility] [address] [place] [address] Dr. 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 Tasha Dodson Clarity (U) CLEAR Normal CLEAR [facility] Comment on above: Performed By: #### T SH, BMP #### [facility] [address] [place] [address] Dr. Tasha Dodson Color (U) LT. YELLOW Normal YELLOW [facility] Comment on above: Performed By: #### T SH, BMP #### [facility] [address] [address] [address] Tasha Dodson Glucose Ql (U) Negative Normal NEGATIVE [facility] Comment on above: Performed By: #### T SH, BMP #### [facility] [address] [address] [address] Tasha Dodson Hemoglobin Ql (U) Negative Normal NEGATIVE [facility] Comment on above: Performed By: #### T SH, BMP #### [facility] [address] [address] [address] Tasha Dodson Ketones Ql (U) Negative Normal NEGATIVE [facility] Comment on above: Performed By: #### T SH, BMP #### [facility] [address] [place] [address] Dr. Tasha Dodson LEUKOCYTES Negative Normal NEGATIVE [facility] Comment on above: Performed By: #### T SH, BMP #### [facility] [address] [place] [address] Dr. Tasha Dodson Nitrite Ql (U) Negative Normal NEGATIVE [facility] Comment on above: Performed By: #### T SH, BMP #### [facility] [address] [place] [address] Dr. Tasha Dodson pH (U) 7.0 [pH] Normal 5-9 [facility] Comment on above: Performed By: #### T SH, BMP #### [facility] [address] [place] [address] Dr. Tasha Dodson SPEC GRAVITY 1.010 Normal 1.005-<=1.02 5 [facility] Comment on above: Performed By: #### T SH, BMP #### [facility] [address] [place] [address] Dr. Tasha Dodson UA PROTEIN Negative Normal NEGATIVE/ TRACE [facility] Comment on above: Performed By: #### T SH, BMP #### [facility] [address] [place] [address] Dr. Tasha Dodson UR MICRO IND NOT INDICATED Normal [facility] Comment on above: Performed By: #### T SH, BMP #### [facility] [address] [place], [place] [address] Dr. Tasha Dodson Urobilinogen Qn (U) 0.2 {Juan'U}/dL Normal 0.2 - 1. 0 [facility] Comment on above: Performed By: #### T , [facility] #### [facility] [address] [place], [place] [address] Dr. Tasha Dodson ECHOCARDIO M/2D COMPLETEon 0 04-18-2022 ECHOCARDIO M/2D COMPLETE Patient: HIRAM MADRID Exam Date: 04/18/2022 : 1935 Gender:F Ordering : DR VALERIE DARDEN M.D. Admission #: [id number] Family : ADDY DANIELS . Order #: [id number] CLICK HERE TO VIEW EXAM ECHOCARDIOGRAM REPORT [...] Barragan M.D. on 04/19/2022 at 18:55 Normal [facility] Office Visiton 04-04-2022 Follow-up visit [id number] Hiram Madrid 1935 F Date Provider Department Center 04/04/2022 [id number] DARDENAB CARD [facility] Family History Problem Relation Age of Onset Hypertension Mother Lupus Mother Coronary artery disease Mother Heart attack Mother Hypertension Father Aneurysm Father Coronary artery disease Father Hypertension Sister Lupus Sister Family Status - Relation Status Age at Mother Father Sister Level of Service:01101 OR OFFICE/OUTPATIENT ESTABLISHED MOD MDM 30-39 MIN Reason for Visit and Comments: Hyperlipidemia [182] Hypertension [063768] carotid artery stenosis [Other] 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 Tasha Dodson Basophils/100 WBC (Bld) 0.6 % Normal 0.2-2.0 [facility] Comment on above: Performed By: #### C BC #### [facility] [address] [place] [address] Dr. Tasha Dodson EO # 0.1 103/ul Normal 0.0-0.7 [facility] Comment on above: Performed By: #### C BC #### [facility] [address] [place] [address] Dr. Tasha Dodson Eosinophils/100 WBC (Bld) 0.9 % Normal 0.9-7.0 [facility] Comment on above: Performed By: #### C BC #### [facility] [address] [place] [address] Dr. Tasha Dodson Erythrocyte distribution width (RBC) [Ratio] 13.0 % Normal 11.0-15.0 [facility] Comment on above: Performed By: #### C BC #### [facility] [address] [place] [address] Dr. Tasha Dodson Hematocrit (Bld) [Volume fraction] 38.5 % Normal 36.0-48.0 [facility] Comment on above: Performed By: #### C BC #### [facility] [address] [place] [address] Dr. Tasha Dodson Hemoglobin (Bld) [Mass/Vol] 13.4 g/dL Normal 12.0-16.0 [facility] Comment on above: Performed By: #### C BC #### [facility] [address] [place] [address] Dr. Tasha Dodson IG # 0.07 10e3/ul Critically high 0.00-0.03 [facility] Comment on above: Performed By: #### C BC #### [facility] [address] [place] [address] Dr. Tasha Dodson IG % 0.5 % Normal 0.0-0.5 [facility] Comment on above: Performed By: #### C BC #### [facility] [address] [place] [address] Dr. Tasha Dodson LYMPH # 2.8 103/ul Normal 1.2-3.8 [facility] Comment on above: Performed By: #### C BC #### [facility] [address] [place] [address] Dr. Tasha Dodson Lymphocytes/100 WBC (Bld) 20.5 % Normal 20.5-60.0 [facility] Comment on above: Performed By: #### C BC #### [facility] [address] [place] [address] Dr. Tasha Dodson MANUAL DIFF REQ NO Normal [facility] Comment on above: Performed By: #### C BC #### [facility] [address] [place] [address] Dr. Tasha Dodson MCH (RBC) [Entitic mass] 30.7 pg Normal 26.7-34.0 [facility] Comment on above: Performed By: #### C BC #### [facility] [address] [place] [address] Dr. Tasha Dodson MCHC (RBC) [Mass/Vol] 34.8 g/dL Normal 29.9-35.2 [facility] Comment on above: Performed By: #### C BC #### [facility] [address] [place] [address] Dr. Tasha Dodson MCV (RBC) [Entitic vol] 88.3 fL Normal 81.0-99.0 [facility] Comment on above: Performed By: #### C BC #### [facility] [address] [place] [address] Dr. Tasha Dodson MONO # 1.0 103/ul Critically high 0.3-0.8 [facility] Comment on above: Performed By: #### C BC #### [facility] [address] [place] [address] Dr. Tasha Dodson Monocytes/100 WBC (Bld) 7.4 % Normal 1.7-12.0 [facility] Comment on above: Performed By: #### C BC #### [facility] [address] [place] [address] Dr. Tasha Dodson NEUT # 9.5 103/ul Critically high 1.4-6.5 [facility] Comment on above: Performed By: #### C BC #### [facility] [address] [place] [address] Dr. Tasha Dodson Neutrophils/100 WBC (Bld) 70.1 % Normal 43.0-75.0 [facility] Comment on above: Performed By: #### C BC #### [facility] [address] [place] [address] Dr. Tasha Dodson Platelet mean volume (Bld) [Entitic vol] 8.0 fL Critically low 9.5-13.5 [facility] Comment on above: Performed By: #### C BC #### [facility] [address] [place] [address] Dr. Tasha Dodson PLT 492 103/ul Critically high 150-450 [facility] Comment on above: Performed By: #### C BC #### [facility] [address] [place] [address] Dr. Tasha Dodson RBC 4.36 106/ul Normal 4.20-5.40 [facility] Comment on above: Performed By: #### C BC #### [facility] [address] [place] [address] Dr. Tasha Dodson WBC 13.5 103/ul Critically high 4.0-11.0 [facility] Comment on above: Performed By: #### C BC #### [facility] [address] [place] [address] Dr. Tasha Dodson PROF 14(COMP METB)on 022 Albumin [Mass/Vol] 3.8 g/dL Normal 3.4-5.0 [facility] Comment on above: Performed By: #### T JESI, BMP #### [facility] [address] [place] [address] Dr. Tasha Dodson Albumin/Globulin [Mass ratio] 0.9 {ratio} Normal [facility] Comment on above: Performed By: #### T JESI, BMP #### [facility] [address] [place] [address] Dr. Tasha Dodson ALP [Catalytic activity/Vol] 60 U/L Normal 46-116 [facility] Comment on above: Performed By: #### T JESI, BMP #### [facility] [address] [place] [address] Dr. Tasha Dodson ALT [Catalytic activity/Vol] 26 U/L Normal 14-59 [facility] Comment on above: Performed By: #### T JESI, BMP #### [facility] [address] [place] [address] Dr. Tasha Dodson Anion gap [Moles/Vol] 8.4 mmol/L Normal [facility] Comment on above: Performed By: #### T JESI, BMP #### [facility] [address] [place] [address] Dr. Tasha Dodson AST [Catalytic activity/Vol] 19 U/L Normal 15-37 [facility] Comment on above: Performed By: #### T JESI, BMP #### [facility] [address] [place] [address] Dr. Tasha Dodson Bilirubin [Mass/Vol] 0.4 mg/dL Normal 0.2-1.0 [facility] Comment on above: Performed By: #### T SH, BMP #### [facility] [address] [place] [address] Dr. Tasha Dodson Calcium [Mass/Vol] 10.1 mg/dL Normal 8.5-10.1 [facility] Comment on above: Performed By: #### T SH, BMP #### [facility] [address] [place] [address] Dr. Tasha Dodson Chloride [Moles/Vol] 92 mmol/L Critically low 98-107 [facility] Comment on above: Performed By: #### T SH, BMP #### [facility] [address] [place] [address] Dr. Tasha Dodson CO2 [Moles/Vol] 33.8 mmol/L Critically high 21.0-32.0 [facility] Comment on above: Performed By: #### T SH, BMP #### [facility] [address] [place] [address] Dr. Tasha Dodson Creatinine [Mass/Vol] 0.67 mg/dL Normal 0.55-1.02 [facility] Comment on above: Performed By: #### T SH, BMP #### [facility] [address] [place] [address] Dr. Tasha Dodson EGFR-AF BELARUSIAN >60 Normal >=60 [facility] Comment on above: Performed By: #### T SH, BMP #### [facility] [address] [place] [address] Dr. Tasha Dodson EGFR-NON AF BELARUSIAN >60 Normal >=60 [facility] Comment on above: Performed By: #### T SH, BMP #### [facility] [address] [place] [address] Dr. Tasha Dodson Globulin (S) [Mass/Vol] 4.1 g/dL Normal [facility] Comment on above: Performed By: #### T SH, BMP #### [facility] [address] [place] [address] Dr. Tasha Dodson Glucose [Mass/Vol] 106 mg/dL Normal 74-106 [facility] Comment on above: Performed By: #### T SH, BMP #### [facility] [address] [place] [address] Dr. Tasha Dodson Potassium [Moles/Vol] 3.2 mmol/L Critically low 3.5-5.1 [facility] Comment on above: Performed By: #### T SH, BMP #### [facility] [address] [place] [address] Dr. Tasha Dodson Protein [Mass/Vol] 7.9 g/dL Normal 6.4-8.2 [facility] Comment on above: Performed By: #### T SH, BMP #### [facility] [address] [place] [address] Dr. Tasha Dodson Sodium [Moles/Vol] 131 mmol/L Critically low 136-145 [facility] Comment on above: Performed By: #### T SH, BMP #### [facility] [address] [place] [address] Dr. Tasha Dodson Urea nitrogen [Mass/Vol] 10.0 mg/dL Normal 7.0-18.0 [facility] Comment on above: Performed By: #### T SH, BMP #### [facility] [address] [place] [address] Dr. Tasha Dodson Urea nitrogen/Creatinine [Mass ratio] 14.9 mg/mg Normal [facility] Comment on above: Performed By: #### T JESI, BMP #### [facility] [address] [place] [address] Dr. Tasha Dodson CBC AUTO DIFFon 12-29-2021 BASO # 0.1 103/ul Normal 0.0-0.1 [facility] Comment on above: Performed By: #### C BC #### [facility] [address] [place] [address] Dr. Tasha Dodson Basophils/100 WBC (Bld) 0.5 % Normal 0.2-2.0 [facility] Comment on above: Performed By: #### C BC #### [facility] [address] [place] [address] Dr. Tasha Dodson EO # 0.1 103/ul Normal 0.0-0.7 [facility] Comment on above: Performed By: #### C BC #### [facility] [address] [place] [address] Dr. Tasha Dodson Eosinophils/100 WBC (Bld) 0.4 % Critically low 0.9-7.0 [facility] Comment on above: Performed By: #### C BC #### [facility] [address] [place] [address] Dr. Tasha Dodson Erythrocyte distribution width (RBC) [Ratio] 13.0 % Normal 11.0-15.0 [facility] Comment on above: Performed By: #### C BC #### [facility] [address] [place] [address] Dr. Tasha Dodson Hematocrit (Bld) [Volume fraction] 34.0 % Critically low 36.0-48.0 [facility] Comment on above: Performed By: #### C BC #### [facility] [address] [place] [address] Dr. Tasha Dodson Hemoglobin (Bld) [Mass/Vol] 12.0 g/dL Normal 12.0-16.0 [facility] Comment on above: Performed By: #### C BC #### [facility] [address] [place] [address] Dr. Tasha Dodson IG # 0.06 10e3/ul Critically high 0.00-0.03 [facility] Comment on above: Performed By: #### C BC #### [facility] [address] [place] [address] Dr. Tasha Dodson IG % 0.4 % Normal 0.0-0.5 [facility] Comment on above: Performed By: #### C BC #### [facility] [address] [place] [address] Dr. Tasha Dodson LYMPH # 2.5 103/ul Normal 1.2-3.8 [facility] Comment on above: Performed By: #### C BC #### [facility] [address] [place] [address] Dr. Tasha Dodson Lymphocytes/100 WBC (Bld) 17.4 % Critically low 20.5-60.0 [facility] Comment on above: Performed By: #### C BC #### [facility] [address] [place] [address] Dr. Tasha Dodson MANUAL DIFF REQ NO Normal [facility] Comment on above: Performed By: #### C BC #### [facility] [address] [place] [address] Dr. Tasha Dodson MCH (RBC) [Entitic mass] 31.0 pg Normal 26.7-34.0 [facility] Comment on above: Performed By: #### C BC #### [facility] [address] [place] [address] Dr. Tasha Dodson MCHC (RBC) [Mass/Vol] 35.3 g/dL Critically high 29.9-35.2 [facility] Comment on above: Performed By: #### C BC #### [facility] [address] [place] [address] Dr. Tasha Dodson MCV (RBC) [Entitic vol] 87.9 fL Normal 81.0-99.0 [facility] Comment on above: Performed By: #### C BC #### [facility] [address] [place] [address] Dr. Tasha Dodson MONO # 1.0 103/ul Critically high 0.3-0.8 [facility] Comment on above: Performed By: #### C BC #### [facility] [address] [place] [address] Dr. Tasha Dodson Monocytes/100 WBC (Bld) 6.9 % Normal 1.7-12.0 [facility] Comment on above: Performed By: #### C BC #### [facility] [address] [place] [address] Dr. Tasha Dodson NEUT # 10.8 103/ul Critically high 1.4-6.5 [facility] Comment on above: Performed By: #### C BC #### [facility] [address] [place] [address] Dr. Tasha Dodson Neutrophils/100 WBC (Bld) 74.4 % Normal 43.0-75.0 [facility] Comment on above: Performed By: #### C BC #### [facility] [address] [place] [address] Dr. Tasha Dodson Platelet mean volume (Bld) [Entitic vol] 8.4 fL Critically low 9.5-13.5 [facility] Comment on above: Performed By: #### C BC #### [facility] [address] [place] [address] Dr. Tasha Dodson PLT 370 103/ul Normal 150-450 [facility] Comment on above: Performed By: #### C BC #### [facility] [address] [place] [address] Dr. Tasha Dodson RBC 3.87 106/ul Critically low 4.20-5.40 [facility] Comment on above: Performed By: #### C BC #### [facility] [address] [place] [address] Dr. Tasha Dodson WBC 14.5 103/ul Critically high 4.0-11.0 [facility] Comment on above: Performed By: #### C BC #### [facility] [address] [place] [address] Dr. Tasha Dodson PROF 14(COMP METB)on 022 Albumin [Mass/Vol] 2.8 g/dL Critically low 3.4-5.0 [facility] Comment on above: Performed By: #### T JESI, BMP #### [facility] [address] [place] [address] Dr. Tasha Dodson Albumin/Globulin [Mass ratio] 0.9 {ratio} Normal [facility] Comment on above: Performed By: #### T JESI, BMP #### [facility] [address] [place] [address] Dr. Tasha Dodson ALP [Catalytic activity/Vol] 51 U/L Normal 46-116 [facility] Comment on above: Performed By: #### T JESI, BMP #### [facility] [address] [place] [address] Dr. Tasha Dodson ALT [Catalytic activity/Vol] 15 U/L Normal 14-59 [facility] Comment on above: Performed By: #### T SH, BMP #### [facility] [address] [place] [address] Dr. Tasha Dodson Anion gap [Moles/Vol] 9.7 mmol/L Normal [facility] Comment on above: Performed By: #### T SH, BMP #### [facility] [address] [place] [address] Dr. Tasha Dodson AST [Catalytic activity/Vol] 15 U/L Normal 15-37 [facility] Comment on above: Performed By: #### T SH, BMP #### [facility] [address] [place] [address] Dr. Tasha Dodson Bilirubin [Mass/Vol] 0.4 mg/dL Normal 0.2-1.0 [facility] Comment on above: Performed By: #### T SH, BMP #### [facility] [address] [place] [address] Dr. Tasha Dodson Calcium [Mass/Vol] 8.6 mg/dL Normal 8.5-10.1 [facility] Comment on above: Performed By: #### T SH, BMP #### [facility] [address] [place] [address] Dr. Tasha Dodson Chloride [Moles/Vol] 97 mmol/L Critically low 98-107 [facility] Comment on above: Performed By: #### T SH, BMP #### [facility] [address] [place] [address] Dr. Tasha Dodson CO2 [Moles/Vol] 25.8 mmol/L Normal 21.0-32.0 [facility] Comment on above: Performed By: #### T SH, BMP #### [facility] [address] [place] [address] Dr. Tasha Dodson Creatinine [Mass/Vol] 0.52 mg/dL Critically low 0.55-1.02 [facility] Comment on above: Performed By: #### T SH, BMP #### [facility] [address] [place] [address] Dr. Tasha Dodson EGFR-AF BELARUSIAN >60 Normal >=60 [facility] Comment on above: Performed By: #### T SH, BMP #### [facility] [address] [place] [address] Dr. Tasha Dodson EGFR-NON AF BELARUSIAN >60 Normal >=60 [facility] Comment on above: Performed By: #### T SH, BMP #### [facility] [address] [address] [address] Tasha Dodson Globulin (S) [Mass/Vol] 3.2 g/dL Normal [facility] Comment on above: Performed By: #### T SH, BMP #### [facility] [address] [place] [address] Dr. Tasha Dodson Glucose [Mass/Vol] 117 mg/dL Critically high 74-106 [facility] Comment on above: Performed By: #### T SH, BMP #### [facility] [address] [place] [address] Dr. Tasha Dodson Potassium [Moles/Vol] 3.5 mmol/L Normal 3.5-5.1 [facility] Comment on above: Performed By: #### T SH, BMP #### [facility] [address] [place] [address] Dr. Tasha Dodson Protein [Mass/Vol] 6.0 g/dL Critically low 6.4-8.2 [facility] Comment on above: Performed By: #### T SH, BMP #### [facility] [address] [place] [address] Dr. Tasha Dodson Sodium [Moles/Vol] 129 mmol/L Critically low 136-145 [facility] Comment on above: Performed By: #### T SH, BMP #### [facility] [address] [place] [address] Dr. Tasha Dodson Urea nitrogen [Mass/Vol] 4.0 mg/dL Critically low 7.0-18. 0 [facility] Comment on above: Performed By: #### T SH, BMP #### [facility] [address] [place] [address] Dr. Tasha Dodson Urea nitrogen/Creatinine [Mass ratio] 7.7 mg/mg Normal [facility] Comment on above: Performed By: #### T SH, BMP #### [facility] [address] [place] [address] Dr. Tasha Dodson CBC AUTO DIFFon 12-28-2021 BASO # 0.1 103/ul Normal 0.0-0.1 [facility] Comment on above: Performed By: #### C BC #### [facility] [address] [place] [address] Dr. Tasha Dodson Basophils/100 WBC (Bld) 0.4 % Normal 0.2-2.0 [facility] Comment on above: Performed By: #### C BC #### [facility] [address] [place] [address] Dr. Tasha Dodson EO # 0.1 103/ul Normal 0.0-0.7 [facility] Comment on above: Performed By: #### C BC #### [facility] [address] [place] [address] Dr. Tasha Dodson Eosinophils/100 WBC (Bld) 0.4 % Critically low 0.9-7.0 [facility] Comment on above: Performed By: #### C BC #### [facility] [address] [place] [address] Dr. Tasha Dodson Erythrocyte distribution width (RBC) [Ratio] 12.9 % Normal 11.0-15.0 [facility] Comment on above: Performed By: #### C BC #### [facility] [address] [place] [address] Dr. Tasha Dodson Hematocrit (Bld) [Volume fraction] 34.2 % Critically low 36.0-48.0 [facility] Comment on above: Performed By: #### C BC #### [facility] [address] [place] [address] Dr. Tasha Dodson Hemoglobin (Bld) [Mass/Vol] 12.4 g/dL Normal 12.0-16.0 [facility] Comment on above: Performed By: #### C BC #### [facility] [address] [place] [address] Dr. Tasha Dodson IG # 0.09 10e3/ul Critically high 0.00-0.03 [facility] Comment on above: Performed By: #### C BC #### [facility] [address] [place] [address] Dr. Tasha Dodson IG % 0.6 % Critically high 0.0-0.5 [facility] Comment on above: Performed By: #### C BC #### [facility] [address] [address] [address] Tasha Dodson LYMPH # 2.2 103/ul Normal 1.2-3.8 [facility] Comment on above: Performed By: #### C BC #### [facility] [address] [place] [address] Dr. Tasha Dodson Lymphocytes/100 WBC (Bld) 13.6 % Critically low 20.5-60.0 [facility] Comment on above: Performed By: #### C BC #### [facility] [address] [place] [address] Dr. Tasha Dodson MANUAL DIFF REQ NO Normal [facility] Comment on above: Performed By: #### C BC #### [facility] [address] [place] [address] Dr. Tasha Dodson MCH (RBC) [Entitic mass] 31.2 pg Normal 26.7-34.0 [facility] Comment on above: Performed By: #### C BC #### [facility] [address] [place] [address] Dr. Tasha Dodson MCHC (RBC) [Mass/Vol] 36.3 g/dL Critically high 29.9-35.2 [facility] Comment on above: Performed By: #### C BC #### [facility] [address] [place] [address] Dr. Tasha Dodson MCV (RBC) [Entitic vol] 85.9 fL Normal 81.0-99.0 [facility] Comment on above: Performed By: #### C BC #### [facility] [address] [place] [address] Dr. Tasha Dodson MONO # 1.3 103/ul Critically high 0.3-0.8 [facility] Comment on above: Performed By: #### C BC #### [facility] [address] [place] [address] Dr. Tasha Dodson Monocytes/100 WBC (Bld) 7.8 % Normal 1.7-12.0 [facility] Comment on above: Performed By: #### C BC #### [facility] [address] [place] [address] Dr. Tasha Dodson NEUT # 12.4 103/ul Critically high 1.4-6.5 [facility] Comment on above: Performed By: #### C BC #### [facility] [address] [place] [address] Dr. Tasha Dodson Neutrophils/100 WBC (Bld) 77.2 % Critically high 43.0-75.0 [facility] Comment on above: Performed By: #### C BC #### [facility] [address] [place] [address] Dr. Tasha Dodson Platelet mean volume (Bld) [Entitic vol] 8.6 fL Critically low 9.5-13.5 [facility] Comment on above: Performed By: #### C BC #### [facility] [address] [place] [address] Dr. Tasha Dodson PLT 385 103/ul Normal 150-450 [facility] Comment on above: Performed By: #### C BC #### [facility] [address] [place] [address] Dr. Tasha Dodson RBC 3.98 106/ul Critically low 4.20-5.40 [facility] Comment on above: Performed By: #### C BC #### [facility] [address] [place] [address] Dr. Tasha Dodson WBC 16.1 103/ul Critically high 4.0-11.0 [facility] Comment on above: Performed By: #### C BC #### [facility] [address] [place] [address] Dr. Tasha Dodson PROF 14(COMP METB)on 022 Albumin [Mass/Vol] 3.2 g/dL Critically low 3.4-5.0 [facility] Comment on above: Performed By: #### T SH, BMP #### [facility] [address] [place] [address] Dr. Tasha Dodson Albumin/Globulin [Mass ratio] 1.0 {ratio} Normal [facility] Comment on above: Performed By: #### T SH, BMP #### [facility] [address] [place] [address] Dr. Tasha Dodson ALP [Catalytic activity/Vol] 51 U/L Normal 46-116 [facility] Comment on above: Performed By: #### T JESI, BMP #### [facility] [address] [place] [address] Dr. Tasha Dodson ALT [Catalytic activity/Vol] 17 U/L Normal 14-59 [facility] Comment on above: Performed By: #### T JESI, BMP #### [facility] [address] [place] [address] Dr. Tasha Dodson Anion gap [Moles/Vol] 10.5 mmol/L Normal [facility] Comment on above: Performed By: #### T JESI, BMP #### [facility] [address] [place] [address] Dr. Tasha Dodson AST [Catalytic activity/Vol] 18 U/L Normal 15-37 [facility] Comment on above: Performed By: #### T JESI, BMP #### [facility] [address] [place] [address] Dr. Tasha Dodson Bilirubin [Mass/Vol] 0.4 mg/dL Normal 0.2-1.0 [facility] Comment on above: Performed By: #### T SH, BMP #### [facility] [address] [place] [address] Dr. Tasha Dodson Calcium [Mass/Vol] 8.3 mg/dL Critically low 8.5-10.1 [facility] Comment on above: Performed By: #### T SH, BMP #### [facility] [address] [place] [address] Dr. Tasha Dodson Chloride [Moles/Vol] 96 mmol/L Critically low 98-107 [facility] Comment on above: Performed By: #### T SH, BMP #### [facility] [address] [place] [address] Dr. Tasha Dodson CO2 [Moles/Vol] 24.5 mmol/L Normal 21.0-32.0 [facility] Comment on above: Performed By: #### T SH, BMP #### [facility] [address] [address] [address] Tasha Dodson Creatinine [Mass/Vol] 0.54 mg/dL Critically low 0.55-1.02 [facility] Comment on above: Performed By: #### T SH, BMP #### [facility] [address] [place] [address] Dr. Tasha Dodson EGFR-AF BELARUSIAN >60 Normal >=60 [facility] Comment on above: Performed By: #### T SH, BMP #### [facility] [address] [place] [address] Dr. Tasha Dodson EGFR-NON AF BELARUSIAN >60 Normal >=60 [facility] Comment on above: Performed By: #### T SH, BMP #### [facility] [address] [place] [address] Dr. Tasha Dodson Globulin (S) [Mass/Vol] 3.1 g/dL Normal [facility] Comment on above: Performed By: #### T SH, BMP #### [facility] [address] [place] [address] Dr. Tasha Dodson Glucose [Mass/Vol] 123 mg/dL Critically high 74-106 [facility] Comment on above: Performed By: #### T SH, BMP #### [facility] [address] [place] [address] Dr. Tasha Dodson Potassium [Moles/Vol] 3.0 mmol/L Critically low 3.5-5.1 [facility] Comment on above: Performed By: #### T SH, BMP #### [facility] [address] [place] [address] Dr. Tasha Dodson Protein [Mass/Vol] 6.3 g/dL Critically low 6.4-8.2 [facility] Comment on above: Performed By: #### T SH, BMP #### [facility] [address] [place] [address] Dr. Tasha Dodson Sodium [Moles/Vol] 128 mmol/L Critically low 136-145 [facility] Comment on above: Performed By: #### T SH, BMP #### [facility] [address] [place] [address] Dr. Tasha Dodson Urea nitrogen [Mass/Vol] 5.0 mg/dL Critically low 7.0-18. 0 [facility] Comment on above: Performed By: #### T JESI, BMP #### [facility] [address] [place] [address] Dr. Tasha Dodson Urea nitrogen/Creatinine [Mass ratio] 9.3 mg/mg Normal [facility] Comment on above: Performed By: #### T JESI, BMP #### [facility] [address] [place] [address] Dr. Tasha Dodson SODIUM RANDOM URINEon 2021 Sodium (U) [Moles/Vol] 135 mmol/L Critically high 30-90 [facility] Comment on above: Performed By: #### C BC #### [facility] [address] [place] [address] Dr. Tasha Dodson CBC AUTO DIFFon 12-27-2021 BASO # 0.0 103/ul Normal 0.0-0.1 [facility] Comment on above: Performed By: #### C BC #### [facility] [address] [place] [address] Dr. Tasha Dodson Basophils/100 WBC (Bld) 0.2 % Normal 0.2-2.0 [facility] Comment on above: Performed By: #### C BC #### [facility] [address] [place] [address] Dr. Tasha Dodson EO # 0.3 103/ul Normal 0.0-0.7 [facility] Comment on above: Performed By: #### C BC #### [facility] [address] [place] [address] Dr. Tasha Dodson Eosinophils/100 WBC (Bld) 2.3 % Normal 0.9-7.0 [facility] Comment on above: Performed By: #### C BC #### [facility] [address] [place] [address] Dr. Tasha Dodson Erythrocyte distribution width (RBC) [Ratio] 12.4 % Normal 11.0-15.0 [facility] Comment on above: Performed By: #### C BC #### [facility] [address] [place] [address] Dr. Tasha Dodson Hematocrit (Bld) [Volume fraction] 35.4 % Critically low 36.0-48.0 [facility] Comment on above: Performed By: #### C BC #### [facility] [address] [place] [address] Dr. Tasha Dodson Hemoglobin (Bld) [Mass/Vol] 12.9 g/dL Normal 12.0-16.0 [facility] Comment on above: Performed By: #### C BC #### [facility] [address] [place] [address] Dr. Tasha Dodson IG # 0.06 10e3/ul Critically high 0.00-0.03 [facility] Comment on above: Performed By: #### C BC #### [facility] [address] [place] [address] Dr. Tasha Dodson IG % 0.5 % Normal 0.0-0.5 [facility] Comment on above: Performed By: #### C BC #### [facility] [address] [place] [address] Dr. Tasha Dodson LYMPH # 2.0 103/ul Normal 1.2-3.8 [facility] Comment on above: Performed By: #### C BC #### [facility] [address] [place] [address] Dr. Tasha Dodosn Lymphocytes/100 WBC (Bld) 15.7 % Critically low 20.5-60.0 [facility] Comment on above: Performed By: #### C BC #### [facility] [address] [place] [address] Dr. Tasha Dodson MANUAL DIFF REQ NO Normal [facility] Comment on above: Performed By: #### C BC #### [facility] [address] [place] [address] Dr. Tasha Dodson MCH (RBC) [Entitic mass] 31.0 pg Normal 26.7-34.0 [facility] Comment on above: Performed By: #### C BC #### [facility] [address] [place] [address] Dr. Tasha Dodson MCHC (RBC) [Mass/Vol] 36.4 g/dL Critically high 29.9-35.2 [facility] Comment on above: Performed By: #### C BC #### [facility] [address] [place] [address] Dr. Tasha Dodson MCV (RBC) [Entitic vol] 85.1 fL Normal 81.0-99.0 [facility] Comment on above: Performed By: #### C BC #### [facility] [address] [place] [address] Dr. Tasha Dodson MONO # 1.1 103/ul Critically high 0.3-0.8 [facility] Comment on above: Performed By: #### C BC #### [facility] [address] [place] [address] Dr. Tasha Dodson Monocytes/100 WBC (Bld) 8.3 % Normal 1.7-12.0 [facility] Comment on above: Performed By: #### C BC #### [facility] [address] [place] [address] Dr. Tasha Dodson NEUT # 9.5 103/ul Critically high 1.4-6.5 [facility] Comment on above: Performed By: #### C BC #### [facility] [address] [place] [address] Dr. Tasha Dodson Neutrophils/100 WBC (Bld) 73.0 % Normal 43.0-75.0 [facility] Comment on above: Performed By: #### C BC #### [facility] [address] [address] [address] Tasha Dodson Platelet mean volume (Bld) [Entitic vol] 8.3 fL Critically low 9.5-13.5 [facility] Comment on above: Performed By: #### C BC #### [facility] [address] [place] [address] Dr. Tasha Dodson PLT 408 103/ul Normal 150-450 [facility] Comment on above: Performed By: #### C BC #### [facility] [address] [address] [address] Tasha Dodson RBC 4.16 106/ul Critically low 4.20-5.40 [facility] Comment on above: Performed By: #### C BC #### [facility] [address] [place] [address] Dr. Tasha Dodson WBC 13.0 103/ul Critically high 4.0-11.0 [facility] Comment on above: Performed By: #### C BC #### [facility] [address] [place] [address] Dr. Tasha Dodson CULTURE SPUTUMon 12-27-2021 CULTURE SPUTUM Culture Observations: NORMAL RESPIRATORY AMADOU. Normal [facility] Comment on above: Performed By: #### C BC #### [facility] [address] [place] [address] Dr. Tasha Dodson PROF 14(COMP METB)on 022 Albumin [Mass/Vol] 3.4 g/dL Normal 3.4-5.0 [facility] Comment on above: Performed By: #### C MADM, LIPA, BNP, CMP #### [facility] [address] [place] [address] Dr. Tasha Dodson Albumin/Globulin [Mass ratio] 1.0 {ratio} Normal [facility] Comment on above: Performed By: #### C MADM, LIPA, BNP, CMP #### [facility] [address] [place] [address] Dr. Tasha Dodson ALP [Catalytic activity/Vol] 54 U/L Normal 46-116 [facility] Comment on above: Performed By: #### C MADM, LIPA, BNP, CMP #### [facility] [address] [place] [address] Dr. Tasha Dodson ALT [Catalytic activity/Vol] 20 U/L Normal 14-59 [facility] Comment on above: Performed By: #### C MADM, LIPA, BNP, CMP #### [facility] [address] [place] [address] Dr. Tasha Dodson Anion gap [Moles/Vol] 10.8 mmol/L Normal [facility] Comment on above: Performed By: #### C MADM, LIPA, BNP, CMP #### [facility] [address] [place] [address] Dr. Tasha Dodson AST [Catalytic activity/Vol] 19 U/L Normal 15-37 [facility] Comment on above: Performed By: #### C MADM, LIPA, BNP, CMP #### [facility] [address] [place] [address] Dr. Tasha Dodson Bilirubin [Mass/Vol] 0.5 mg/dL Normal 0.2-1.0 [facility] Comment on above: Performed By: #### C MADM, LIPA, BNP, CMP #### [facility] [address] [place] [address] Dr. Tasha Dodson Calcium [Mass/Vol] 8.3 mg/dL Critically low 8.5-10.1 [facility] Comment on above: Performed By: #### C MADM, LIPA, BNP, CMP #### [facility] [address] [place] [address] Dr. Tasha Dodson Chloride [Moles/Vol] 89 mmol/L Critically low 98-107 [facility] Comment on above: Performed By: #### C MADM, LIPA, BNP, CMP #### [facility] [address] [place] [address] Dr. Tasha Dodson CO2 [Moles/Vol] 27.0 mmol/L Normal 21.0-32.0 [facility] Comment on above: Performed By: #### C MADM, LIPA, BNP, CMP #### [facility] [address] [address] [address] Tasha Dodson Creatinine [Mass/Vol] 0.69 mg/dL Normal 0.55-1.02 [facility] Comment on above: Performed By: #### C MADM, LIPA, BNP, CMP #### [facility] [address] [address] [address] Tasha Dodson EGFR-AF BELARUSIAN >60 Normal >=60 [facility] Comment on above: Performed By: #### C MADM, LIPA, BNP, CMP #### [facility] [address] [address] [address] Tasha Dodson EGFR-NON AF BELARUSIAN >60 Normal >=60 [facility] Comment on above: Performed By: #### C MADM, LIPA, BNP, CMP #### [facility] [address] [address] [address] Tasha Dodson Globulin (S) [Mass/Vol] 3.3 g/dL Normal [facility] Comment on above: Performed By: #### C MADM, LIPA, BNP, CMP #### [facility] [address] [address] [address] Tasha Dodson Glucose [Mass/Vol] 115 mg/dL Critically high 74-106 [facility] Comment on above: Performed By: #### C MADM, LIPA, BNP, CMP #### [facility] [address] [place] [address] Dr. Tasha Dodson Potassium [Moles/Vol] 2.7 mmol/L Critically low 3.5-5.1 [facility] Comment on above: Result Comment: Test Repeated. Critical Value Verified Performed By: #### C MADM, LIPA, BNP, CMP #### [facility] [address] [address] [address] Tasha Dodson Protein [Mass/Vol] 6.7 g/dL Normal 6.4-8.2 [facility] Comment on above: Performed By: #### C MADM, LIPA, BNP, CMP #### [facility] [address] [address] [address] Tasha Dodson Sodium [Moles/Vol] 123 mmol/L Critically low 136-145 [facility] Comment on above: Result Comment: Test Repeated. Critical Value Verified Performed By: #### C MADM, LIPA, BNP, CMP #### [facility] [address] [address] [address] Tasha Dodson Urea nitrogen [Mass/Vol] 6.0 mg/dL Critically low 7.0-18. 0 [facility] Comment on above: Performed By: #### C MADM, LIPA, BNP, CMP #### [facility] [address] [address] [address] Tasha Dodson Urea nitrogen/Creatinine [Mass ratio] 8.7 mg/mg Normal [facility] Comment on above: Performed By: #### C MADM, LIPA, BNP, CMP #### [facility] [address] [address] [address] Tasha Dodson SPUTUM GRAM STAINon 12-28-19 COMMENTS Normal [facility] Comment on above: Performed By: #### T SH, BMP #### [facility] [address] [place] [address] Dr. Tasha Dodson DIPHTHEROIDS Normal [facility] Comment on above: Performed By: #### T SH, BMP #### [facility] [address] [address] [address] Tasha Dodson EPITHELIALS <25 Normal [facility] Comment on above: Performed By: #### T SH, BMP #### [facility] [address] [address] [address] Tasha Dodson FUNGAL ELEMENTS Normal [facility] Comment on above: Performed By: #### T SH, BMP #### [facility] [address] [address] [address] Tasha Dodson GRAM NEG BACILLI Normal [facility] Comment on above: Performed By: #### T SH, BMP #### [facility] [address] [place] [address] Dr. Tasha FAUST NEG DIPPLOCOCCI Normal [facility] Comment on above: Performed By: #### T SH, BMP #### [facility] [address] [place] [address] Dr. Tasha Dodson GRAM POS BACILLI Normal [facility] Comment on above: Performed By: #### T SH, BMP #### [facility] [address] [place] [address] Dr. Tasha Dodson GRAM POSITIVE COCCI MODERATE Normal [facility] Comment on above: Performed By: #### T SH, BMP #### [facility] [address] [place] [address] Dr. Tasha Dodson WBC (Bld) [#/Vol] 10*3/uL Normal [facility] Comment on above: Performed By: #### T SH, BMP #### [facility] [address] [place] [address] Dr. Tasha Dodson BNPon 12-26-2021 Natriuretic peptide B (Bld) [Mass/Vol] 148.0 pg/mL Normal <=1,800.0 [facility] Comment on above: Performed By: #### C MADM, LIPA, BNP, CMP #### [facility] [address] [place] [address] Dr. Tasha Dodson CARDIAC ANGELO ADMITon 022 CK [Catalytic activity/Vol] 139 U/L Normal 26-192 [facility] Comment on above: Performed By: #### C MADM, LIPA, BNP, CMP #### [facility] [address] [place] [address] Dr. Tasha Dodson CK.MB [Mass/Vol] 2.43 ng/mL Normal <=3.60 [facility] Comment on above: Performed By: #### C MADM, LIPA, BNP, CMP #### [facility] [address] [place] [address] Dr. Tasha Dodson HSTROP 12.2 pg/mL Normal 4.0-51.3 [facility] Comment on above: Result Comment: CUT- OFF POINTS HAVE BEEN ESTABLISHED BASED ON THE FOURTH UNIVERSAL DEFINITIONS OF MYOCARDIAL INFARCTION. THE UPPER REFERENCE LIMIT (URL) OF TROPONIN, DEFINED THE 99TH PERCENTILE OF cTnI DISTRIBUTION IN A REFERENCE POPULATION, HAS BEEN CONFIRMED THE DECISION THRESHOLD FOR IN DIAGNOSIS. Performed By: #### C MADM, LIPA, BNP, CMP #### [facility] [address] [place] [address] Dr. Tasha Dodson ELIZABETH 110 ng/mL Critically high 9-82 [facility] Comment on above: Performed By: #### C MADM, LIPA, BNP, CMP #### [facility] [address] [place] [address] Dr. Tasha Dodson CBC AUTO DIFFon 12-26-2021 BASO # 0.0 103/ul Normal 0.0-0.1 [facility] Comment on above: Performed By: #### C MADM, LIPA, BNP, CMP #### [facility] [address] [place] [address] Dr. Tasha Dodson Basophils/100 WBC (Bld) 0.3 % Normal 0.2-2.0 [facility] Comment on above: Performed By: #### C MADM, LIPA, BNP, CMP #### [facility] [address] [place] [address] Dr. Tasha Dodson EO # 0.1 103/ul Normal 0.0-0.7 [facility] Comment on above: Performed By: #### C MADM, LIPA, BNP, CMP #### [facility] [address] [place] [address] Dr. Tasha Dodson Eosinophils/100 WBC (Bld) 0.7 % Critically low 0.9-7.0 [facility] Comment on above: Performed By: #### C MADM, LIPA, BNP, CMP #### [facility] [address] [place] [address] Dr. Tasha Dodson Erythrocyte distribution width (RBC) [Ratio] 12.4 % Normal 11.0-15.0 [facility] Comment on above: Performed By: #### C MADM, LIPA, BNP, CMP #### [facility] [address] [place] [address] Dr. Tasha Dodson Hematocrit (Bld) [Volume fraction] 38.9 % Normal 36.0-48.0 [facility] Comment on above: Performed By: #### C MADM, LIPA, BNP, CMP #### [facility] [address] [place] [address] Dr. Tasha Dodson Hemoglobin (Bld) [Mass/Vol] 14.4 g/dL Normal 12.0-16.0 [facility] Comment on above: Performed By: #### C MADM, LIPA, BNP, CMP #### [facility] [address] [place] [address] Dr. Tasha Dodson IG # 0.08 10e3/ul Critically high 0.00-0.03 [facility] Comment on above: Performed By: #### C MADM, LIPA, BNP, CMP #### [facility] [address] [place] [address] Dr. Tasha Dodson IG % 0.5 % Normal 0.0-0.5 [facility] Comment on above: Performed By: #### C MADM, LIPA, BNP, CMP #### [facility] [address] [place] [address] Dr. Tasha Dodson LYMPH # 2.2 103/ul Normal 1.2-3.8 [facility] Comment on above: Performed By: #### C MADM, LIPA, BNP, CMP #### [facility] [address] [place] [address] Dr. Tasha Dodson Lymphocytes/100 WBC (Bld) 15.0 % Critically low 20.5-60.0 [facility] Comment on above: Performed By: #### C MADM, LIPA, BNP, CMP #### [facility] [address] [place] [address] Dr. Tasha Dodson MANUAL DIFF REQ NO Normal [facility] Comment on above: Performed By: #### C MADM, LIPA, BNP, CMP #### [facility] [address] [place] [address] Dr. Tasha Dodson MCH (RBC) [Entitic mass] 31.6 pg Normal 26.7-34.0 [facility] Comment on above: Performed By: #### C MADM, LIPA, BNP, CMP #### [facility] [address] [place] [address] Dr. Tasha Dodson MCHC (RBC) [Mass/Vol] 37.0 g/dL Critically high 29.9-35.2 [facility] Comment on above: Performed By: #### C MADM, LIPA, BNP, CMP #### [facility] [address] [place] [address] Dr. Tasha Dodson MCV (RBC) [Entitic vol] 85.3 fL Normal 81.0-99.0 [facility] Comment on above: Performed By: #### C MADM, LIPA, BNP, CMP #### [facility] [address] [place] [address] Dr. Tasha Dodson MONO # 1.0 103/ul Critically high 0.3-0.8 [facility] Comment on above: Performed By: #### C MADM, LIPA, BNP, CMP #### [facility] [address] [place] [address] Dr. Tasha Dodson Monocytes/100 WBC (Bld) 6.8 % Normal 1.7-12.0 [facility] Comment on above: Performed By: #### C MADM, LIPA, BNP, CMP #### [facility] [address] [place] [address] Dr. Tasha Dodson NEUT # 11.5 103/ul Critically high 1.4-6.5 [facility] Comment on above: Performed By: #### C MADM, LIPA, BNP, CMP #### [facility] [address] [place] [address] Dr. Tasha Dodson Neutrophils/100 WBC (Bld) 76.7 % Critically high 43.0-75.0 [facility] Comment on above: Performed By: #### C MADM, LIPA, BNP, CMP #### [facility] [address] [place] [address] Dr. Tasha Dodson Platelet mean volume (Bld) [Entitic vol] 8.6 fL Critically low 9.5-13.5 [facility] Comment on above: Performed By: #### C MADM, LIPA, BNP, CMP #### [facility] [address] [address] [address] Tasha Dodson PLT 491 103/ul Critically high 150-450 [facility] Comment on above: Performed By: #### C MADM, LIPA, BNP, CMP #### [facility] [address] [place] [address] Dr. Tasha Dodson RBC 4.56 106/ul Normal 4.20-5.40 [facility] Comment on above: Performed By: #### C MADM, LIPA, BNP, CMP #### [facility] [address] [place] [address] Dr. Tasha Dodson WBC 15.0 103/ul Critically high 4.0-11.0 [facility] Comment on above: Performed By: #### C JAIROM, LIPA, BNP, CMP #### [facility] [address] [place] [address] Dr. Tasha Dodson CULTURE URINEon 12-26-2021 CULTURE URINE Culture Observations: LIGHT GROWTH OF MIXED GENITAL AMADOU. NO POTENTIAL PATHOGENS SEEN. Normal [facility] Comment on above: Performed By: #### C BC #### [facility] [address] [place] [address] Dr. Tasha Dodson Covid-19 PCR ([facility])on SARS-CoV-2 (COVID-19) RNA CARITO+probe Ql (Unsp spec) Not detected Normal NOT DETECTED [facility] Comment on above: Result Comment: When [...] for this test is supported by the [place] of [employer] and Human Service's declaration that [...] #### C MADM, LIPA, BNP, CMP #### [facility] [address] [place] [address] Dr. Tasha Dodson ER URINE PROFILEon 2 Bilirubin Ql (U) Negative Normal NEGATIVE [facility] Comment on above: Performed By: #### T SH, BMP #### [facility] [address] [place] [address] Dr. Tasha Dodson Clarity (U) CLEAR Normal CLEAR [facility] Comment on above: Performed By: #### T SH, BMP #### [facility] [address] [place] [address] Dr. Tasha Dodson Color (U) LT. YELLOW Normal YELLOW [facility] Comment on above: Performed By: #### T SH, BMP #### [facility] [address] [place] [address] Dr. Tasha Dodson ERUAHHung A micrscopic examination will be performed if indicated. Normal [facility] Comment on above: Performed By: #### T SH, BMP #### [facility] [address] [place] [address] Dr. Tasha Dodson Glucose Ql (U) Negative Normal NEGATIVE [facility] Comment on above: Performed By: #### T SH, BMP #### [facility] [address] [place] [address] Dr. Tasha Dodson Hemoglobin Ql (U) TRACE-INTACT Abnormal NEGATIVE [facility] Comment on above: Performed By: #### T SH, BMP #### [facility] [address] [place] [address] Dr. Tasha Dodson Ketones Ql (U) TRACE Abnormal NEGATIVE [facility] Comment on above: Performed By: #### T SH, BMP #### [facility] [address] [place] [address] Dr. Tasha Dodson LEUKOCYTES Negative Normal NEGATIVE [facility] Comment on above: Performed By: #### T SH, BMP #### [facility] [address] [place] [address] Dr. Tasha Dodson Nitrite Ql (U) Negative Normal NEGATIVE [facility] Comment on above: Performed By: #### T SH, BMP #### [facility] [address] [place] [address] Dr. Tasha Dodson pH (U) 7.0 [pH] Normal 5-9 [facility] Comment on above: Performed By: #### T SH, BMP #### [facility] [address] [place] [address] Dr. Tasha Dodson SPEC GRAVITY 1.010 Normal 1.005-<=1.02 5 [facility] Comment on above: Performed By: #### T SH, BMP #### [facility] [address] [place] [address] Dr. Tasha Dodson UA PROTEIN Negative Normal NEGATIVE/ TRACE [facility] Comment on above: Performed By: #### T SH, BMP #### [facility] [address] [place] [address] Dr. Tasha Dodson UR MICRO IND INDICATED Normal [facility] Comment on above: Performed By: #### T SH, BMP #### [facility] [address] [place] [address] Dr. Tasha Dodson Urobilinogen Qn (U) 0.2 {Juan'U}/dL Normal 0.2 - 1. 0 [facility] Comment on above: Performed By: #### T SH, BMP #### [facility] [address] [place] [address] Dr. Tasha Dodson INFLUENZA A AND B AGon 12-26 INFLUANEGH SEE BELOW Normal [facility] Comment on above: Result Comment: Nega tive for Flu A protein angiten. Infection due to Flu A cannot be ruled out. Flu A angiten in the sample may be below the detection limit of the test. Performed By: #### C BC #### [facility] [address] [place] [address] Dr. Tasha Dodson INFLUBNEGH SEE BELOW Normal [facility] Comment on above: Result Comment: Nega tive for Flu B protein antigen. Infection due to Flu B cannot be ruled out. Flu B antigen in the sample may be below the detection limit of the test. Performed By: #### C BC #### [facility] [address] [place] [address] Dr. Tasha Dodson INFLUENZA A AG Negative Normal NEGATIVE SEE COMMENT [facility] Comment on above: Performed By: #### C BC #### [facility] [address] [place] [address] Dr. Tasha Dodson INFLUENZA B AG Negative Normal NEGATIVE SEE COMMENT [facility] Comment on above: Performed By: #### C BC #### [facility] [address] [place] [address] Dr. Tasha Dodson INTERNAL CONTROLS Within Normal Limits Normal Within Normal Limits [facility] Comment on above: Performed By: #### C BC #### [facility] [address] [place] [address] Dr. Tasha Dodson LACTATE/LACTIC ACIDon 2021 Lactate [Moles/Vol] 1.5 mmol/L Normal 0.4-1.9 [facility] Comment on above: Performed By: #### T SH, BMP #### [facility] [address] [place] [address] Dr. Tasha Dodson LIPASEon 12-26-2021 Lipase [Catalytic activity/Vol] 96.0 U/L Normal 73.0-393.0 [facility] Comment on above: Performed By: #### C MADM, LIPA, BNP, CMP #### [facility] [address] [place] [address] Dr. Tasha Dodson PROF 14(COMP METB)on 022 Albumin [Mass/Vol] 4.2 g/dL Normal 3.4-5.0 [facility] Comment on above: Performed By: #### C MADM, LIPA, BNP, CMP #### [facility] [address] [place] [address] Dr. Tasha Dodson Albumin/Globulin [Mass ratio] 1.1 {ratio} Normal [facility] Comment on above: Performed By: #### C MADM, LIPA, BNP, CMP #### [facility] [address] [place] [address] Dr. Tasha Dodson ALP [Catalytic activity/Vol] 68 U/L Normal 46-116 [facility] Comment on above: Performed By: #### C MADM, LIPA, BNP, CMP #### [facility] [address] [address] [address] Tasha Dodson ALT [Catalytic activity/Vol] 23 U/L Normal 14-59 [facility] Comment on above: Performed By: #### C MADM, LIPA, BNP, CMP #### [facility] [address] [address] [address] Tasha Dodson Anion gap [Moles/Vol] 12.3 mmol/L Normal [facility] Comment on above: Performed By: #### C MADM, LIPA, BNP, CMP #### [facility] [address] [address] [address] Tasha Dodson AST [Catalytic activity/Vol] 25 U/L Normal 15-37 [facility] Comment on above: Performed By: #### C MADM, LIPA, BNP, CMP #### [facility] [address] [address] [address] Tasha Dodson Bilirubin [Mass/Vol] 0.7 mg/dL Normal 0.2-1.0 [facility] Comment on above: Performed By: #### C MADM, LIPA, BNP, CMP #### [facility] [address] [address] [address] Tasha Dodson Calcium [Mass/Vol] 9.5 mg/dL Normal 8.5-10.1 [facility] Comment on above: Performed By: #### C MADM, LIPA, BNP, CMP #### [facility] [address] [address] [address] Tasha Dodson Chloride [Moles/Vol] 80 mmol/L Critically low 98-107 [facility] Comment on above: Performed By: #### C MADM, LIPA, BNP, CMP #### [facility] [address] [address] [address] Tasha Dodson CO2 [Moles/Vol] 27.1 mmol/L Normal 21.0-32.0 [facility] Comment on above: Performed By: #### C MADM, LIPA, BNP, CMP #### [facility] [address] [place] [address] Dr. Tasha Dodson Creatinine [Mass/Vol] 0.85 mg/dL Normal 0.55-1.02 [facility] Comment on above: Performed By: #### C MADM, LIPA, BNP, CMP #### [facility] [address] [address] [address] Tasha Dodson EGFR-AF BELARUSIAN >60 Normal >=60 [facility] Comment on above: Performed By: #### C MADM, LIPA, BNP, CMP #### [facility] [address] [place] [address] Dr. Tasha Dodson EGFR-NON AF BELARUSIAN >60 Normal >=60 [facility] Comment on above: Performed By: #### C MADM, LIPA, BNP, CMP #### [facility] [address] [place] [address] Dr. Tasha Dodson Globulin (S) [Mass/Vol] 3.9 g/dL Normal [facility] Comment on above: Performed By: #### C MADM, LIPA, BNP, CMP #### [facility] [address] [place] [address] Dr. Tasha Dodson Glucose [Mass/Vol] 132 mg/dL Critically high 74-106 [facility] Comment on above: Performed By: #### C MADM, LIPA, BNP, CMP #### [facility] [address] [place] [address] Dr. Tasha Dodson Potassium [Moles/Vol] 2.4 mmol/L Critically low 3.5-5.1 [facility] Comment on above: Performed By: #### C MADM, LIPA, BNP, CMP #### [facility] [address] [place] [address] Dr. Tasha Dodson Protein [Mass/Vol] 8.1 g/dL Normal 6.4-8.2 [facility] Comment on above: Performed By: #### C MADM, LIPA, BNP, CMP #### [facility] [address] [place] [address] Dr. Tasha Dodson Sodium [Moles/Vol] 116 mmol/L Critically low 136-145 [facility] Comment on above: Performed By: #### C MADM, LIPA, BNP, CMP #### [facility] [address] [place] [address] Dr. Tasha Dodson Urea nitrogen [Mass/Vol] 12.0 mg/dL Normal 7.0-18.0 [facility] Comment on above: Performed By: #### C MADM, LIPA, BNP, CMP #### [facility] [address] [place] [address] Dr. Tasha Dodson Urea nitrogen/Creatinine [Mass ratio] 14.1 mg/mg Normal [facility] Comment on above: Performed By: #### C MADM, LIPA, BNP, CMP #### [facility] [address] [place] [address] Dr. Tasha Dodson PROF CHEM 8 (BAS METB)on Anion gap [Moles/Vol] 11.4 mmol/L Normal [facility] Comment on above: Performed By: #### T SH, BMP #### [facility] [address] [place] [address] Dr. Tasha Dodson Calcium [Mass/Vol] 8.4 mg/dL Critically low 8.5-10.1 [facility] Comment on above: Performed By: #### T SH, BMP #### [facility] [address] [place] [address] Dr. Tasha Dodson Chloride [Moles/Vol] 89 mmol/L Critically low 98-107 [facility] Comment on above: Performed By: #### T SH, BMP #### [facility] [address] [place] [address] Dr. Tasha Dodson CO2 [Moles/Vol] 25.5 mmol/L Normal 21.0-32.0 [facility] Comment on above: Performed By: #### T SH, BMP #### [facility] [address] [place] [address] Dr. Tasha Dodson Creatinine [Mass/Vol] 0.89 mg/dL Normal 0.55-1.02 [facility] Comment on above: Performed By: #### T SH, BMP #### [facility] [address] [place] [address] Dr. Tasha Dodson EGFR-AF BELARUSIAN >60 Normal >=60 [facility] Comment on above: Performed By: #### T SH, BMP #### [facility] [address] [address] [address] Tasha Dodson EGFR-NON AF BELARUSIAN 60 mL/min/1.73m2 Normal >=60 [facility] Comment on above: Performed By: #### T SH, BMP #### [facility] [address] [place] [address] Dr. Tasha Dodson Glucose [Mass/Vol] 166 mg/dL Critically high 74-106 [facility] Comment on above: Performed By: #### T SH, BMP #### [facility] [address] [place] [address] Dr. Tasha Dodson Potassium [Moles/Vol] 3.0 mmol/L Critically low 3.5-5.1 [facility] Comment on above: Performed By: #### T SH, BMP #### [facility] [address] [place] [address] Dr. Tasha Dodson Sodium [Moles/Vol] 123 mmol/L Critically low 136-145 [facility] Comment on above: Performed By: #### T SH, BMP #### [facility] [address] [place] [address] Dr. Tasha Dodson Urea nitrogen [Mass/Vol] 9.0 mg/dL Normal 7.0-18.0 [facility] Comment on above: Performed By: #### T SH, BMP #### [facility] [address] [place] [address] Dr. Tasha Dodson Urea nitrogen/Creatinine [Mass ratio] 10.1 mg/mg Normal [facility] Comment on above: Performed By: #### T SH, BMP #### [facility] [address] [place] [address] Dr. Tasha Dodson PROTIMEon 12-26-2021 INR Coag (PPP) [Relative time] 0.96 {INR} Normal [facility] Comment on above: Performed By: #### T JESI, BMP #### [facility] [address] [place] [address] Dr. Tasha Dodson INR GUIDELINES SEE BELOW Normal [facility] Comment on above: Result Comment: JO RED INR: 2.0 - 3.0 CONDITIONS NOT LISTED BELOW 2.5 - 3.5 FOR PROSTHETIC HEART VALVE REPLACEMENT 2.5 - 3.5 RECURRENT THROMBOSIS Performed By: #### T JESI, BMP #### [facility] [address] [place] [address] Dr. Tasha Dodson PT Coag (PPP) [Time] 10.4 s Normal 9.0-11.6 [facility] Comment on above: Performed By: #### T JESI, BMP #### [facility] [address] [place] [address] Dr. Tasha Dodson PTTon 12-26-2021 aPTT Coag (Bld) [Time] 26.2 s Normal 22.3-36.2 [facility] Comment on above: Performed By: #### T JESI, BMP #### [facility] [address] [place] [address] Dr. Tasha Dodson SODIUM RANDOM URINEon 2021 Sodium (U) [Moles/Vol] 71 mmol/L Normal 30-90 [facility] Comment on above: Performed By: #### T JESI, BMP #### [facility] [address] [place] [address] Dr. Tasha Dodson T4on 12-26-2021 T4 [Mass/Vol] 10.60 ug/dL Normal 4.80-13.90 [facility] Comment on above: Performed By: #### C BC #### [facility] [address] [place] [address] Dr. Tasha Dodson TSHon 12-26-2021 TSH 5.236 uIU/mL Critically high 0.358-3.740 [facility] Comment on above: Performed By: #### C BC #### [facility] [address] [place] [address] Dr. Tasha Dodson URINE MICROSCOPIC ONLYon BACTERIA TRACE Abnormal NONE SEEN [facility] Comment on above: Performed By: #### T SH, BMP #### [facility] [address] [place] [address] Dr. Tasha Dodson Bacteria identified Cx Nom (U) NOT INDICATED Normal [facility] Comment on above: Performed By: #### T SH, BMP #### [facility] [address] [place] [address] Dr. Tasha Dodson CAST NONE SEEN Normal NONE SEEN [facility] Comment on above: Performed By: #### T SH, BMP #### [facility] [address] [place] [address] Dr. Tasha Dodson Crystals LM Nom (Urine sed) NONE SEEN Normal NONE SEEN [facility] Comment on above: Performed By: #### T SH, BMP #### [facility] [address] [place] [address] Dr. Tasha Dodson Epithelial cells LM Ql (Urine sed) NONE SEEN Normal NONE SEEN /RARE [facility] Comment on above: Performed By: #### T SH, BMP #### [facility] [address] [place] [address] Dr. Tasha Dodson MUCOUS NONE SEEN Normal NONE SEEN [facility] Comment on above: Performed By: #### T SH, BMP #### [facility] [address] [place] [address] Dr. Tasha Dodson RBC 0-2 Normal 0-2 [facility] Comment on above: Performed By: #### T SH, BMP #### [facility] [address] [place] [address] Dr. Tasha Dodson WBC 0-2 Abnormal NONE SEEN [facility] Comment on above: Performed By: #### T SH, BMP #### [facility] [address] [place] [address] Dr. Tasha Dodson XR CHEST 1 Von [...] TING MIXON Date: 2021-12-26 11:32 Normal [facility] XR LSPINE MIN 4 VIEWSon 11-20 [...] by: JESUS BRUNO Date: 2021-11-30 22:52 Normal [facility] CBC AUTO DIFFon 11-09-2021 BASO # 0.1 103/ul Normal 0.0-0.1 [facility] Comment on above: Performed By: #### C MADM, LIPA, BNP, CMP #### [facility] [address] [address] [address] Tasha Dodson Basophils/100 WBC (Bld) 0.7 % Normal 0.2-2.0 [facility] Comment on above: Performed By: #### C MADM, LIPA, BNP, CMP #### [facility] [address] [address] [address] Tasha Dodson EO # 0.2 103/ul Normal 0.0-0.7 [facility] Comment on above: Performed By: #### C MADM, LIPA, BNP, CMP #### [facility] [address] [place] [address] Dr. Tasha Dodson Eosinophils/100 WBC (Bld) 1.8 % Normal 0.9-7.0 [facility] Comment on above: Performed By: #### C MADM, LIPA, BNP, CMP #### [facility] [address] [place] [address] Dr. Tasha Dodson Erythrocyte distribution width (RBC) [Ratio] 13.0 % Normal 11.0-15.0 [facility] Comment on above: Performed By: #### C MADM, LIPA, BNP, CMP #### [facility] [address] [place] [address] Dr. Tasha Dodson Hematocrit (Bld) [Volume fraction] 33.8 % Critically low 36.0-48.0 [facility] Comment on above: Performed By: #### C MADM, LIPA, BNP, CMP #### [facility] [address] [place] [address] Dr. Tasha Dodson Hemoglobin (Bld) [Mass/Vol] 12.5 g/dL Normal 12.0-16.0 [facility] Comment on above: Performed By: #### C MADM, LIPA, BNP, CMP #### [facility] [address] [place] [address] Dr. Tasha Dodson IG # 0.02 10e3/ul Normal 0.00-0.03 [facility] Comment on above: Performed By: #### C MADM, LIPA, BNP, CMP #### [facility] [address] [place] [address] Dr. Tasha Dodson IG % 0.2 % Normal 0.0-0.5 [facility] Comment on above: Performed By: #### C MADM, LIPA, BNP, CMP #### [facility] [address] [place] [address] Dr. Tasha Dodson LYMPH # 2.9 103/ul Normal 1.2-3.8 [facility] Comment on above: Performed By: #### C MADM, LIPA, BNP, CMP #### [facility] [address] [place] [address] Dr. Tasha Dodson Lymphocytes/100 WBC (Bld) 29.4 % Normal 20.5-60.0 [facility] Comment on above: Performed By: #### C MADM, LIPA, BNP, CMP #### [facility] [address] [place] [address] Dr. Tasha Dodson MANUAL DIFF REQ NO Normal [facility] Comment on above: Performed By: #### C MADM, LIPA, BNP, CMP #### [facility] [address] [place] [address] Dr. Tasha Dodson MCH (RBC) [Entitic mass] 34.1 pg Critically high 26.7-3 4.0 [facility] Comment on above: Performed By: #### C MADM, LIPA, BNP, CMP #### [facility] [address] [place] [address] Dr. Tasha Dodson MCHC (RBC) [Mass/Vol] 37.0 g/dL Critically high 29.9-35.2 [facility] Comment on above: Performed By: #### C MADM, LIPA, BNP, CMP #### [facility] [address] [place] [address] Dr. Tasha Dodson MCV (RBC) [Entitic vol] 92.1 fL Normal 81.0-99.0 [facility] Comment on above: Performed By: #### C MADM, LIPA, BNP, CMP #### [facility] [address] [place] [address] Dr. Tasha Dodson MONO # 0.8 103/ul Normal 0.3-0.8 [facility] Comment on above: Performed By: #### C MADM, LIPA, BNP, CMP #### [facility] [address] [place] [address] Dr. Tasha Dodson Monocytes/100 WBC (Bld) 8.2 % Normal 1.7-12.0 [facility] Comment on above: Performed By: #### C MADM, LIPA, BNP, CMP #### [facility] [address] [place] [address] Dr. Tasha Dodson NEUT # 5.9 103/ul Normal 1.4-6.5 [facility] Comment on above: Performed By: #### C MADM, LIPA, BNP, CMP #### [facility] [address] [address] [address] Tasha Dodson Neutrophils/100 WBC (Bld) 59.7 % Normal 43.0-75.0 [facility] Comment on above: Performed By: #### C MADM, LIPA, BNP, CMP #### [facility] [address] [place] [address] Dr. Tasha Dodson Platelet mean volume (Bld) [Entitic vol] 8.9 fL Critically low 9.5-13.5 [facility] Comment on above: Performed By: #### C MADM, LIPA, BNP, CMP #### [facility] [address] [place] [address] Dr. Tasha Dodson PLT 370 103/ul Normal 150-450 [facility] Comment on above: Performed By: #### C MADM, LIPA, BNP, CMP #### [facility] [address] [place] [address] Dr. Tasha Dodson RBC 3.67 106/ul Critically low 4.20-5.40 [facility] Comment on above: Performed By: #### C MADM, LIPA, BNP, CMP #### [facility] [address] [place] [address] Dr. Tasha Dodson WBC 9.9 103/ul Normal 4.0-11.0 [facility] Comment on above: Performed By: #### C MADM, LIPA, BNP, CMP #### [facility] [address] [place] [address] Dr. Tasha Dodson FREE T4on 11-09-2021 Free T4 [Mass/Vol] 1.48 ng/dL Critically high 0.76-1.46 [facility] Comment on above: Performed By: #### F T4 #### [facility] [address] [place] [address] Dr. Tasha Dodson PROF CHEM 8 (BAS METB)on Anion gap [Moles/Vol] 11.1 mmol/L Normal [facility] Comment on above: Performed By: #### T SH, BMP #### [facility] [address] [place] [address] Dr. Tasha Dodson Calcium [Mass/Vol] 9.3 mg/dL Normal 8.5-10.1 [facility] Comment on above: Performed By: #### T SH, BMP #### [facility] [address] [place] [address] Dr. Tasha Dodson Chloride [Moles/Vol] 92 mmol/L Critically low 98-107 [facility] Comment on above: Performed By: #### T SH, BMP #### [facility] [address] [place] [address] Dr. Tasha Dodson CO2 [Moles/Vol] 29.2 mmol/L Normal 21.0-32.0 [facility] Comment on above: Performed By: #### T SH, BMP #### [facility] [address] [place] [address] Dr. Tasha Dodson Creatinine [Mass/Vol] 0.68 mg/dL Normal 0.55-1.02 [facility] Comment on above: Performed By: #### T SH, BMP #### [facility] [address] [place] [address] Dr. Tasha Dodson EGFR-AF BELARUSIAN >60 Normal >=60 [facility] Comment on above: Performed By: #### T SH, BMP #### [facility] [address] [place] [address] Dr. Tasha Dodson EGFR-NON AF BELARUSIAN >60 Normal >=60 [facility] Comment on above: Performed By: #### T SH, BMP #### [facility] [address] [place] [address] Dr. Tasha Dodson Glucose [Mass/Vol] 109 mg/dL Critically high 74-106 [facility] Comment on above: Performed By: #### T SH, BMP #### [facility] [address] [place] [address] Dr. Tasha Dodson Potassium [Moles/Vol] 3.3 mmol/L Critically low 3.5-5.1 [facility] Comment on above: Performed By: #### T SH, BMP #### [facility] [address] [place] [address] Dr. Tasha Dodson Sodium [Moles/Vol] 129 mmol/L Critically low 136-145 [facility] Comment on above: Performed By: #### T SH, BMP #### [facility] [address] [place] [address] Dr. Tasha Dodson Urea nitrogen [Mass/Vol] 9.0 mg/dL Normal 7.0-18.0 [facility] Comment on above: Performed By: #### T SH, BMP #### [facility] [address] [place] [address] Dr. Tasha Dodson Urea nitrogen/Creatinine [Mass ratio] 13.2 mg/mg Normal [facility] Comment on above: Performed By: #### T SH, BMP #### [facility] [address] [place] [address] Dr. Tasha Dodson TSHon 11-09-2021 TSH 1.193 uIU/mL Normal 0.358-3.740 [facility] Comment on above: Performed By: #### T SH, BMP #### [facility] [address] [place] [address] Dr. Tasha Dodson LIPID PROFILEon 08-06-2021 CHOL-HDL RATIO NORM SEE BELOW Normal [facility] Comment on above: Result Comment: 3.3 - 4.4 LOW RISK 4.4 - 7.1 AVERAGE RISK 7.1 - 11.0 MODERATE RISK >11.0 HIGH RISK Performed By: #### C MADM, LIPA, BNP, CMP #### [facility] [address] [place] [address] Dr. Tasha Dodson Cholesterol [Mass/Vol] 198 mg/dL Normal <=200 [facility] Comment on above: Performed By: #### C MADM, LIPA, BNP, CMP #### [facility] [address] [place] [address] Dr. Tasha Dodson Cholesterol in HDL [Mass/Vol] 77 mg/dL Critically high 40-60 [facility] Comment on above: Performed By: #### C MADM, LIPA, BNP, CMP #### [facility] [address] [address] [address] Tasha Dodson Cholesterol in LDL [Mass/Vol] 106.0 mg/dL Normal [facility] Comment on above: Performed By: #### C MADM, LIPA, BNP, CMP #### [facility] [address] [address] [address] Tasha Dodson Cholesterol.total/Choles terol in HDL [Mass ratio] 2.6 {ratio} Normal [facility] Comment on above: Performed By: #### C MADM, LIPA, BNP, CMP #### [facility] [address] [place] [address] Dr. Tasha Dodson HDL NORMAL > or = 60 mg/dl - LOW CARDIOVASCULAR RISK <40 mg/dl - HIGH CARDIOVASCULAR RISK Normal [facility] Comment on above: Performed By: #### C MADM, LIPA, BNP, CMP #### [facility] [address] [place] [address] Dr. Tasha Dodson LDL CALC NORMAL SEE BELOW Normal [facility] Comment on above: Result Comment: <100 mg/dl OPTIMAL 100 - 129 mg/dl NEAR OR ABOVE OPTIMAL 130 - 159 mg/dl BORDERLINE HIGH 160 - 189 mg/dl HIGH >190 mg/dl VERY HIGH Performed By: #### C MADM, LIPA, BNP, CMP #### [facility] [address] [place] [address] Dr. Tasha Dodson Triglyceride [Mass/Vol] 75 mg/dL Normal <=150 [facility] Comment on above: Performed By: #### C MADM, LIPA, BNP, CMP #### [facility] [address] [place] [address] Dr. Tasha Dodson VLDL CALC 15.0 mg/dL Normal [facility] Comment on above: Performed By: #### C MADM, LIPA, BNP, CMP #### [facility] [address] [place] [address] Dr. Tasha Dodson LIVER PROFILEon 08-06-2021 Albumin [Mass/Vol] 3.7 g/dL Normal 3.4-5.0 [facility] Comment on above: Performed By: #### C MADM, LIPA, BNP, CMP #### [facility] [address] [place] [address] Dr. Tasha Dodson Albumin/Globulin [Mass ratio] 1.0 {ratio} Normal [facility] Comment on above: Performed By: #### C MADM, LIPA, BNP, CMP #### [facility] [address] [place] [address] Dr. Tasha Dodson ALP [Catalytic activity/Vol] 62 U/L Normal 46-116 [facility] Comment on above: Performed By: #### C MADM, LIPA, BNP, CMP #### [facility] [address] [place] [address] Dr. Tasha Dodson ALT [Catalytic activity/Vol] 26 U/L Normal 14-59 [facility] Comment on above: Performed By: #### C MADM, LIPA, BNP, CMP #### [facility] [address] [place] [address] Dr. Tasha Dodson AST [Catalytic activity/Vol] 24 U/L Normal 15-37 [facility] Comment on above: Performed By: #### C MADM, LIPA, BNP, CMP #### [facility] [address] [place] [address] Dr. Tasha Dodson BILI, CONJUGATED 0.1 mg/dL Normal 0.0-0.2 [facility] Comment on above: Performed By: #### C MADM, LIPA, BNP, CMP #### [facility] [address] [place] [address] Dr. Tasha Dodson Bilirubin [Mass/Vol] 0.5 mg/dL Normal 0.2-1.0 [facility] Comment on above: Performed By: #### C MADM, LIPA, BNP, CMP #### [facility] [address] [place] [address] Dr. Tasha Dodson Globulin (S) [Mass/Vol] 3.8 g/dL Normal T [facility] Comment on above: Performed By: #### C MADM, LIPA, BNP, CMP #### [facility] [address] [place] [address] Dr. Tasha Dodson Protein [Mass/Vol] 7.5 g/dL Normal 6.4-8.2 [facility] Comment on above: Performed By: #### C MADM, LIPA, BNP, CMP #### [facility] [address] [place] [address] Dr. Tasha Dodson FREE T4on 07-28-2021 Free T4 [Mass/Vol] 1.32 ng/dL Normal 0.76-1.46 [facility] Comment on above: Performed By: #### T SH, BMP #### [facility] [address] [place] [address] Dr. Tasha Dodson PROF CHEM 8 (BAS METB)on Anion gap [Moles/Vol] 11.6 mmol/L Normal [facility] Comment on above: Performed By: #### B MP, TSH #### [facility] [address] [place] [address] Dr. Tasha Dodson Calcium [Mass/Vol] 9.4 mg/dL Normal 8.5-10.1 [facility] Comment on above: Performed By: #### B MP, TSH #### [facility] [address] [place] [address] Dr. Tasha Dodson Chloride [Moles/Vol] 93 mmol/L Critically low 98-107 [facility] Comment on above: Performed By: #### B MP, TSH #### [facility] [address] [place] [address] Dr. Tasha Dodson CO2 [Moles/Vol] 29.8 mmol/L Normal 21.0-32.0 [facility] Comment on above: Performed By: #### B MP, TSH #### [facility] [address] [place] [address] Dr. Tasha Dodson Creatinine [Mass/Vol] 0.74 mg/dL Normal 0.55-1.02 [facility] Comment on above: Performed By: #### B MP, TSH #### [facility] [address] [address] [address] Tasha Dodson EGFR-AF BELARUSIAN >60 Normal >=60 [facility] Comment on above: Performed By: #### B MP, TSH #### [facility] [address] [address] [address] Tasha Dodson EGFR-NON AF BELARUSIAN >60 Normal >=60 [facility] Comment on above: Performed By: #### B MP, TSH #### [facility] [address] [address] [address] Tasha Dodson Glucose [Mass/Vol] 114 mg/dL Critically high 74-106 [facility] Comment on above: Performed By: #### B MP, TSH #### [facility] [address] [address] [address] Tasha Dodson Potassium [Moles/Vol] 3.4 mmol/L Critically low 3.5-5.1 [facility] Comment on above: Performed By: #### B MP, TSH #### [facility] [address] [place] [address] Dr. Tasha Dodson Sodium [Moles/Vol] 131 mmol/L Critically low 136-145 [facility] Comment on above: Performed By: #### B MP, TSH #### [facility] [address] [place] [address] Dr. Tasha Dodson Urea nitrogen [Mass/Vol] 12.0 mg/dL Normal 7.0-18.0 [facility] Comment on above: Performed By: #### B MP, TSH #### [facility] [address] [place] [address] Dr. Tasha Dodson Urea nitrogen/Creatinine [Mass ratio] 16.2 mg/mg Normal [facility] Comment on above: Performed By: #### B MP, TSH #### [facility] [address] [address] [address] Tasha Dodson TSHon 07-28-2021 TSH 1.790 uIU/mL Normal 0.358-3.740 [facility] Comment on above: Performed By: #### B MP, TSH #### [facility] [address] [place], [place] [address] Dr. Tasha Dodson TSH RANGE SEE BELOW Normal [facility] Comment on above: Result Comment: <0.3 4 UIU/ml HYPERTHYROID 0.34-5.60 UIU/ml EUTHYROID >5.60 UIU/ml HYPOTHYROID Performed By: #### B MP, TSH #### [facility] [address] [place], [place] [address] Dr. Tasha Dodson CBC Auto Differentialon 10-0 Basophils (Bld) [#/Vol] 0.1 10*3/uL 0 - 0.2 K/u L [place] Basophils/100 WBC (Bld) 1.1 % [place] Eosinophils (Bld) [#/Vol] 0.2 10*3/uL 0 - 0.7 K/uL [place] Eosinophils/100 WBC (Bld) 1.4 % [place] Erythrocyte distribution width (RBC) [Ratio] 14.4 % 11.5 - 14.5 % [place] Hematocrit (Bld) [Volume fraction] 33.6 % Low 37 - 47 % [place] Hemoglobin (Bld) [Mass/Vol] 11.1 g/dL Low 12 - 16 g/dL [place] Interpretation and review of laboratory results Abnormal [place] Lymphocytes (Bld) [#/Vol] 2.3 10*3/uL 1 - 4.8 K/uL [place] Lymphocytes/100 WBC (Bld) 18.0 % [place] MCH (RBC) [Entitic mass] 29.5 pg 27 - 31.3 p g [place] MCHC (RBC) [Mass/Vol] 33.0 % 33 - 37 % [place] MCV (RBC) [Entitic vol] 89.5 fL 82 - 100 fL [place] Monocytes (Bld) [#/Vol] 0.9 10*3/uL High 0.2 - 0.8 K/uL [place] Monocytes/100 WBC (Bld) 6.9 % [place] Neutrophils Absolute 9.1 K/uL High 1.4 - 6 .5 K/uL [place] Neutrophils/100 WBC (Bld) 72.6 % [place] Platelets (Bld) [#/Vol] 548 10*3/uL High 130 - 400 K/uL [place] RBC (Bld) [#/Vol] 3.75 10*6/uL Low [place] WBC (Bld) [#/Vol] 12.5 10*3/uL High 4.8 - 10.8 K/uL [place] CBC With Platelet and Differ entialon 11-20-2018 Basophils (Bld) [#/Vol] 0.1 10*3/uL Normal 0.0-0.2 [facility] Comment on above: Performed By: #### E SR #### [facility] [address] [place] [address] Basophils/100 WBC (Bld) 1.1 % Normal [facility] Comment on above: Performed By: #### E SR #### [facility] [address] [place] [address] Eosinophils (Bld) [#/Vol] 0.2 10*3/uL Normal 0.0-0.7 [facility] Comment on above: Performed By: #### E SR #### [facility] [address] [place] [address] Eosinophils/100 WBC (Bld) 1.4 % Normal [facility] Comment on above: Performed By: #### E SR #### [facility] [address] [place] [address] Erythrocyte distribution width (RBC) [Ratio] 14.4 % Normal 11.5-14.5 [facility] Comment on above: Performed By: #### E SR #### [facility] [address] [place] [address] Hematocrit (Bld) [Volume fraction] 33.6 % Low 37.0-47.0 [facility] Comment on above: Performed By: #### E SR #### [facility] [address] [place] [address] Hemoglobin (Bld) [Mass/Vol] 11.1 g/dL Low 12.0-16.0 [facility] Comment on above: Performed By: #### E SR #### [facility] [address] [place] [address] Lymphocytes (Bld) [#/Vol] 2.3 10*3/uL Normal 1.0-4.8 [facility] Comment on above: Performed By: #### E SR #### [facility] [address] [place] [address] Lymphocytes/100 WBC (Bld) 18.0 % Normal [facility] Comment on above: Performed By: #### E SR #### [facility] [address] [place] [address] MCH (RBC) [Entitic mass] 29.5 pg Normal 27.0-31.3 [facility] Comment on above: Performed By: #### E SR #### [facility] [address] [place] [address] MCHC (RBC) [Mass/Vol] 33.0 % Normal 33.0-37.0 [facility] Comment on above: Performed By: #### E SR #### [facility] [address] [place] [address] MCV (RBC) [Entitic vol] 89.5 fL Normal 82.0-100.0 [facility] Comment on above: Performed By: #### E SR #### [facility] [address] [place] [address] Monocytes (Bld) [#/Vol] 0.9 10*3/uL Critically high 0.2-0. 8 [facility] Comment on above: Performed By: #### E SR #### [facility] [address] [place] [address] Monocytes/100 WBC (Bld) 6.9 % Normal [facility] Comment on above: Performed By: #### E SR #### [facility] [address] [place] [address] Neutrophils (Bld) [#/Vol] 9.1 10*3/uL Critically high 1.4-6.5 [facility] Comment on above: Performed By: #### E SR #### [facility] [address] [place] [address] Neutrophils/100 WBC (Bld) 72.6 % Normal [facility] Comment on above: Performed By: #### E SR #### [facility] [address] [place] [address] Platelets (Bld) [#/Vol] 548 10*3/uL Critically high 130-40 0 [facility] Comment on above: Performed By: #### E SR #### [facility] [address] [place] [address] RBC (Bld) [#/Vol] 3.75 10*6/uL Low 4.20-5.40 [facility] Comment on above: Performed By: #### E SR #### [facility] [address] [place] [address] WBC (Bld) [#/Vol] 12.5 10*3/uL Critically high 4.8-10.8 [facility] Comment on above: Performed By: #### E SR #### [facility] [address] [place] [address] EKG 12 Leadon 11-20-2018 Atrial Rate 79 BPM [facility] [place] P [place] 58 degrees [facility] [place] P-R Interval 176 ms [facility] [place] Q-T Interval 404 ms [facility] [place] QRS Duration 130 ms [facility] [place] QTc Calculation (Bazett) 463 ms [facility] [place] R [place] -11 degrees [facility] [place] T [place] 5 degrees [facility] [place] Urea nitrogen [Mass/Vol] Normal sinus rh ythm Right bundle branch block Moderate voltage criteria for LVH, may be normal variant Abnormal ECG When compared with ECG of 13-NOV-2018 08:33, No significant change was found Confirmed by Анна Zamarripa ([id number]) on 11/20/2018 9:39:56 AM [place] Ventricular Rate 79 BPM [place], [place] Joseph, Chpo Incoming Results From [place] - 11/20/2018 9:40 AM EDT Normal sinus rhythm Right bundle branch block Moderate voltage criteria for LVH, may be normal variant Abnormal ECG When compared with ECG of 13-NOV-2018 08:33, No significant change was found Confirmed by Анна Zamarripa ([id number]) on 11/20/2018 9:39:56 AM [place] CBC Auto Differentialon 10-23 Neutrophils Absolute 6.1 K/uL 1.4 - 6 .5 K/uL [place] CBC With Platelet and Differ entialon 11-19-2018 Basophils (Bld) [#/Vol] 0.2 10*3/uL Normal 0.0-0.2 [place] Comment on above: Performed By: #### C MP #### [facility] [address] [address] Basophils/100 WBC (Bld) 1.5 % Normal [place] Comment on above: Performed By: #### C MP #### [facility] [address] [place] [address] Eosinophils (Bld) [#/Vol] 0.3 10*3/uL Normal 0.0-0.7 [place] Comment on above: Performed By: #### C MP #### [facility] [address] [address] Eosinophils/100 WBC (Bld) 2.5 % Normal [place] Comment on above: Performed By: #### C MP #### [facility] [address] [facility] [address] Erythrocyte distribution width (RBC) [Ratio] 14.1 % Normal 11.5-14.5 [place] Comment on above: Performed By: #### C MP #### [facility] [address] [place] [address] Hematocrit (Bld) [Volume fraction] 29.3 % Low 37.0-47.0 [place] Comment on above: Performed By: #### C MP #### [facility] [address] [address] Hemoglobin (Bld) [Mass/Vol] 10.1 g/dL Low 12.0-16.0 [place] Comment on above: Performed By: #### C MP #### [facility] [address] [place] [address] Lymphocytes (Bld) [#/Vol] 2.8 10*3/uL Normal 1.0-4.8 [place] Comment on above: Performed By: #### C MP #### [facility] [address] [place] [address] Lymphocytes/100 WBC (Bld) 27.3 % Normal [place] Comment on above: Performed By: #### C MP #### [facility] [address] [place] [address] MCH (RBC) [Entitic mass] 30.7 pg Normal 27.0-31.3 [place] Comment on above: Performed By: #### C MP #### [facility] [address] [place] [address] MCHC (RBC) [Mass/Vol] 34.6 % Normal 33.0-37.0 [place] Comment on above: Performed By: #### C MP #### [facility] [address] [place] [address] MCV (RBC) [Entitic vol] 88.9 fL Normal 82.0-100.0 [place] Comment on above: Performed By: #### C MP #### [facility] [address] [place] [address] Monocytes (Bld) [#/Vol] 0.9 10*3/uL Critically high 0.2-0. 8 [place] Comment on above: Performed By: #### C MP #### [facility] [address] [place] [address] Monocytes/100 WBC (Bld) 9.2 % Normal [place] Comment on above: Performed By: #### C MP #### [facility] [address] [place] [address] Neutrophils (Bld) [#/Vol] 6.1 10*3/uL Normal 1.4-6.5 [facility] Comment on above: Performed By: #### C MP #### [facility] [address] [place] [address] Neutrophils/100 WBC (Bld) 59.5 % Normal [place] Comment on above: Performed By: #### C MP #### [facility] [address] [place] [address] Platelets (Bld) [#/Vol] 396 10*3/uL Normal 130-400 [place] Comment on above: Performed By: #### C MP #### [facility] [address] [place] [address] RBC (Bld) [#/Vol] 3.30 10*6/uL Low 4.20-5.40 [place] Comment on above: Performed By: #### C MP #### [facility] [address] [place] [address] WBC (Bld) [#/Vol] 10.2 10*3/uL Normal 4.8-10.8 [place] Comment on above: Performed By: #### C MP #### [facility] [address] [place] [address] High Sensitivity CRPon 11-19 High Sensitivity CRP 89.2 mg/L Critically high 0.0-5.0 [facility] Comment on above: Performed By: #### E SR #### [facility] [address] [place] [address] High sensitivity CRPon 11-19 CRP High Sensitivity 89.2 mg/L High 0 - 5 mg/L [facility], [place] Interpretation and review of laboratory results Abnormal [place] Otheron 11-19-2018 Interpretation and review of laboratory results Abnormal [facility], [place] Sedimentation Rateon 019 Sedimentation Rate 55 mm Critically high 0-30 [facility] Comment on above: Performed By: #### C MP #### [facility] [address] [place] [address] Sed Rate 55 mm High 0 - 30 mm [place] Basic Metabolic Panelon 10-22 Anion gap [Moles/Vol] 14 mmol/L Normal 9-15 [facility] Comment on above: Performed By: #### C MP #### [facility] [address] [place] [address] Calcium [Mass/Vol] 8.8 mg/dL Normal 8.5-9.9 [facility] Comment on above: Performed By: #### C MP #### [facility] [address] [place] [address] Chloride [Moles/Vol] 95 mmol/L Normal 95-107 [facility] Comment on above: Performed By: #### C MP #### [facility] [address] [place] [address] CO2 [Moles/Vol] 26 mmol/L Normal 20-31 [facility] Comment on above: Performed By: #### C MP #### [facility] [address] [place] [address] Creatinine [Mass/Vol] 0.58 mg/dL Normal 0.50-0.90 [facility] Comment on above: Performed By: #### C MP #### [facility] [address] [place] [address] GFR/1.73 sq M predicted among blacks MDRD (S/P/Bld) [Vol rate/Area] mL/min/{1.73_m2} Normal >60 [facility] Comment on above: Result Comment: >60 mL/min/1.73m2 EGFR, calc. for ages 18 and older using the MDRD formula (not corrected for weight), is valid for stable renal function. Performed By: #### C MP #### [facility] [address] [place] [address] GFR/1.73 sq M.predicted MDRD (S/P/Bld) [Vol rate/Area] mL/min/{1.73_m2} Normal >60 [facility] Comment on above: Result Comment: >60 mL/min/1.73m2 EGFR, calc. for ages 18 and older using the MDRD formula (not corrected for weight), is valid for stable renal function. Performed By: #### C MP #### [facility] [address] [place] [address] Glucose [Mass/Vol] 156 mg/dL Critically high 70-99 [facility] Comment on above: Performed By: #### C MP #### [facility] [address] [place] [address] Potassium [Moles/Vol] 3.3 mmol/L Low 3.4-4.9 [facility] Comment on above: Performed By: #### C MP #### [facility] [address] [place] [address] Sodium [Moles/Vol] 135 mmol/L Normal 135-144 [facility] Comment on above: Performed By: #### C MP #### [facility] [address] [place] [address] Urea nitrogen [Mass/Vol] 11 mg/dL Normal 8-23 [facility] Comment on above: Performed By: #### C MP #### [facility] [address] [place] [address] Anion gap [Moles/Vol] 14 mmol/L [place] Calcium [Mass/Vol] 8.8 mg/dL 8.5 - 9.9 mg/dL [place] Chloride [Moles/Vol] 95 mmol/L [place], [place] CO2 [Moles/Vol] 26 mmol/L [facility] [place] Creatinine [Mass/Vol] 0.58 mg/dL 0.5 - 0.9 mg/dL [place] GFR >60.0 >60 [place], [place] Comment on above: >60 mL/min/1.73m2 EG FR, calc. for ages 18 and older using the MDRD formula (not corrected for weight), is valid for stable renal function. GFR Non- >60.0 >60 [place] Comment on above: >60 mL/min/1.73m2 EG FR, calc. for ages 18 and older using the MDRD formula (not corrected for weight), is valid for stable renal function. Glucose [Mass/Vol] 156 mg/dL High 70 - 99 mg/dL [place] Interpretation and review of laboratory results Abnormal [place] Potassium [Moles/Vol] 3.3 mmol/L Low [place] Sodium [Moles/Vol] 135 mmol/L [place] Urea nitrogen [Mass/Vol] 11 mg/dL 8 - 23 mg/d L [place] Magnesiumon 11-18-2018 Magnesium [Mass/Vol] 1.8 mg/dL Normal 1.7-2.4 [facility] Comment on above: Performed By: #### C MP #### [facility] [address] [facility] [address] Magnesium [Mass/Vol] 1.8 mg/dL 1.7 - 2 .4 mg/dL [place] TSH w/out Reflexon 9 TSH Qn 0.880 uIU/mL Normal 0.440-3.86 [facility] Comment on above: Performed By: #### C MP #### [facility] [address] [facility] [address] TSH without Reflexon 019 TSH Qn 0.880 m[IU]/L [place] CBC Auto Differentialon 10-22 Basophils (Bld) [#/Vol] 0.1 10*3/uL 0 - 0.2 K/u L [place] Basophils/100 WBC (Bld) 0.7 % [place] Eosinophils (Bld) [#/Vol] 0.4 10*3/uL 0 - 0.7 K/uL [place] Eosinophils/100 WBC (Bld) 2.8 % [place] Erythrocyte distribution width (RBC) [Ratio] 14.2 % 11.5 - 14.5 % [place] Hematocrit (Bld) [Volume fraction] 32.3 % Low 37 - 47 % [place] Hemoglobin (Bld) [Mass/Vol] 10.8 g/dL Low 12 - 16 g/dL [place] Interpretation and review of laboratory results Abnormal [place] Lymphocytes (Bld) [#/Vol] 2.6 10*3/uL 1 - 4.8 K/uL [place] Lymphocytes/100 WBC (Bld) 16.8 % [place] MCH (RBC) [Entitic mass] 30.3 pg 27 - 31.3 p g [place] MCHC (RBC) [Mass/Vol] 33.4 % 33 - 37 % [place] MCV (RBC) [Entitic vol] 90.5 fL 82 - 100 fL [place] Monocytes (Bld) [#/Vol] 1.3 10*3/uL High 0.2 - 0.8 K/uL [place] Monocytes/100 WBC (Bld) 8.3 % [place] Neutrophils Absolute 11.1 K/uL High 1.4 - 6 .5 K/uL [place] Neutrophils/100 WBC (Bld) 71.4 % [place] Platelets (Bld) [#/Vol] 375 10*3/uL 130 - 400 K/uL [place] RBC (Bld) [#/Vol] 3.57 10*6/uL Low [place] WBC (Bld) [#/Vol] 15.5 10*3/uL High 4.8 - 10.8 K/uL [place] CBC With Platelet and Differ entialon 11-17-2018 Basophils (Bld) [#/Vol] 0.1 10*3/uL Normal 0.0-0.2 [facility] Comment on above: Performed By: #### C MP #### [facility] [address] [place] [address] Basophils/100 WBC (Bld) 0.7 % Normal [facility] Comment on above: Performed By: #### C MP #### [facility] [address] [place] [address] Eosinophils (Bld) [#/Vol] 0.4 10*3/uL Normal 0.0-0.7 [facility] Comment on above: Performed By: #### C MP #### [facility] [address] [place] [address] Eosinophils/100 WBC (Bld) 2.8 % Normal [facility] Comment on above: Performed By: #### C MP #### [facility] [address] [place] [address] Erythrocyte distribution width (RBC) [Ratio] 14.2 % Normal 11.5-14.5 [facility] Comment on above: Performed By: #### C MP #### [facility] [address] [place] [address] Hematocrit (Bld) [Volume fraction] 32.3 % Low 37.0-47.0 [facility] Comment on above: Performed By: #### C MP #### [facility] [address] [place] [address] Hemoglobin (Bld) [Mass/Vol] 10.8 g/dL Low 12.0-16.0 [facility] Comment on above: Performed By: #### C MP #### [facility] [address] [place] [address] Lymphocytes (Bld) [#/Vol] 2.6 10*3/uL Normal 1.0-4.8 [facility] Comment on above: Performed By: #### C MP #### [facility] [address] [place] [address] Lymphocytes/100 WBC (Bld) 16.8 % Normal [facility] Comment on above: Performed By: #### C MP #### [facility] [address] [place] [address] MCH (RBC) [Entitic mass] 30.3 pg Normal 27.0-31.3 [facility] Comment on above: Performed By: #### C MP #### [facility] [address] [place] [address] MCHC (RBC) [Mass/Vol] 33.4 % Normal 33.0-37.0 [facility] Comment on above: Performed By: #### C MP #### [facility] [address] [place] [address] MCV (RBC) [Entitic vol] 90.5 fL Normal 82.0-100.0 [facility] Comment on above: Performed By: #### C MP #### [facility] [address] [place] [address] Monocytes (Bld) [#/Vol] 1.3 10*3/uL Critically high 0.2-0. 8 [facility] Comment on above: Performed By: #### C MP #### [facility] [address] [place] [address] Monocytes/100 WBC (Bld) 8.3 % Normal [facility] Comment on above: Performed By: #### C MP #### [facility] [address] [place] [address] Neutrophils (Bld) [#/Vol] 11.1 10*3/uL Critically high 1.4-6.5 [facility] Comment on above: Performed By: #### C MP #### [facility] [address] [place] [address] Neutrophils/100 WBC (Bld) 71.4 % Normal [facility] Comment on above: Performed By: #### C MP #### [facility] [address] [place] [address] Platelets (Bld) [#/Vol] 375 10*3/uL Normal 130-400 [facility] Comment on above: Performed By: #### C MP #### [facility] [address] [place] [address] RBC (Bld) [#/Vol] 3.57 10*6/uL Low 4.20-5.40 [facility] Comment on above: Performed By: #### C MP #### [facility] [address] [place] [address] WBC (Bld) [#/Vol] 15.5 10*3/uL Critically high 4.8-10.8 [facility] Comment on above: Performed By: #### C MP #### [facility] [address] [place] [address] High Sensitivity CRPon 11-17 High Sensitivity CRP 230.1 mg/L Critically high 0.0-5.0 [facility] Comment on above: Performed By: #### C MP #### [facility] [address] [place] [address] High sensitivity CRPon 11-17 CRP High Sensitivity 230.1 mg/L High 0 - 5 mg/L [facility] [place] Interpretation and review of laboratory results Abnormal [facility] [place] Sedimentation Rateon 019 Sedimentation Rate 50 mm Critically high 0-30 [facility] Comment on above: Performed By: #### C MP #### [facility] [address] [place] [address] Interpretation and review of laboratory results Abnormal [facility] [place] Sed Rate 50 mm High 0 - 30 mm [facility] [place] US DUP LOWER EXTREMITIES VAUGHN ATERAL VENOUSon 11-17-2018 NO DVT IDENTIFIED IN EITHER LOWER EXTREMITY. [place], [place] Joseph, Chpo Incoming Radiant Results From [employer] - 11/17/2018 8:05 AM EDT US DUP [...] NO DVT IDENTIFIED IN EITHER LOWER EXTREMITY. [place] DUP LOWER EXTREMITIES BILATERAL VENOUS : 11/16/2018 CLINICAL HISTORY: LEG SWELLING, PAIN, DVT SUSPECTED . COMPARISON: None available. Grayscale, compression, color and waveform Doppler analysis of both lower extremity deep venous systems was performed with augmentation. FINDINGS: There is no deep venous thrombosis, abnormal masses, fluid collections or other findings of concern identified within either lower extremity. [place] Urine Cultureon 11-17-2018 Bacteria identified Cx Nom (U) No growth 24 hours [place], [place] ORDERED BY: ADDY COKER SOURCE: Urine Clean Catch COLLECTED: 11/15/18 19:05 ANTIBIOTICS AT DI.: RECEIVED : 11/15/18 19:05 [place] CBC With Platelet and Differ entialon 11-16-2018 Neutrophils (Bld) [#/Vol] 15.5 10*3/uL Critically high 1.4-6.5 [facility] Comment on above: Performed By: #### P TT #### [facility] [address] [facility] [address] Basophils (Bld) [#/Vol] 0.2 10*3/uL Normal 0.0-0.2 [place] Comment on above: Performed By: #### P TT #### [facility] [address] [facility] [address] Basophils/100 WBC (Bld) 0.9 % Normal [place], [place] Comment on above: Performed By: #### P TT #### [facility] [address] [place] [address] Eosinophils (Bld) [#/Vol] 0.1 10*3/uL Normal 0.0-0.7 [place] Comment on above: Performed By: #### P TT #### [facility] [address] [place] [address] Eosinophils/100 WBC (Bld) 0.8 % Normal [place] Comment on above: Performed By: #### P TT #### [facility] [address] [place] [address] Erythrocyte distribution width (RBC) [Ratio] 14.4 % Normal 11.5-14.5 [place] Comment on above: Performed By: #### P TT #### [facility] [address] [place] [address] Hematocrit (Bld) [Volume fraction] 33.4 % Low 37.0-47.0 [place] Comment on above: Performed By: #### P TT #### [facility] [address] [place] [address] Hemoglobin (Bld) [Mass/Vol] 11.0 g/dL Low 12.0-16.0 [place] Comment on above: Performed By: #### P TT #### [facility] [address] [place] [address] Lymphocytes (Bld) [#/Vol] 1.5 10*3/uL Normal 1.0-4.8 [place] Comment on above: Performed By: #### P TT #### [facility] [address] [place] [address] Lymphocytes/100 WBC (Bld) 7.9 % Normal [place] Comment on above: Performed By: #### P TT #### [facility] [address] [place] [address] MCH (RBC) [Entitic mass] 29.4 pg Normal 27.0-31.3 [place] Comment on above: Performed By: #### P TT #### [facility] [address] [facility] [address] MCHC (RBC) [Mass/Vol] 32.9 % Low 33.0-37.0 [place] Comment on above: Performed By: #### P TT #### [facility] [address] [facility] [address] MCV (RBC) [Entitic vol] 89.4 fL Normal 82.0-100.0 [place] Comment on above: Performed By: #### P TT #### [facility] [address] [facility] [address] Monocytes (Bld) [#/Vol] 1.3 10*3/uL Critically high 0.2-0. 8 [place] Comment on above: Performed By: #### P TT #### [facility] [address] [facility] [address] Monocytes/100 WBC (Bld) 7.1 % Normal [place] Comment on above: Performed By: #### P TT #### [facility] [address] [facility] [address] Neutrophils/100 WBC (Bld) 83.3 % Normal [place] Comment on above: Performed By: #### P TT #### [facility] [address] [facility] [address] Platelets (Bld) [#/Vol] 304 10*3/uL Normal 130-400 [place] Comment on above: Performed By: #### P TT #### [facility] [address] [facility] [address] RBC (Bld) [#/Vol] 3.74 10*6/uL Low 4.20-5.40 [place] Comment on above: Performed By: #### P TT #### [facility] [address] [place] [address] WBC (Bld) [#/Vol] 18.6 10*3/uL Critically high 4.8-10.8 [place] Comment on above: Performed By: #### P TT #### [facility] [address] [place] [address] CBC auto differentialon 10-22 Interpretation and review of laboratory results Abnormal [place] Neutrophils Absolute 15.5 K/uL High 1.4 - 6 .5 K/uL [place] ECHO Complete 2D W Doppler W Coloron 11-16-2018 Transthoracic Echocardiography Report (TTE) Demographics Patient Name MERCY GANDHI Gender Female Patient Number [id number] Race Unknown Ethnicity Visit Number [id number] Room Number R238 Corporate ID Date of Study 11/16/2018 Referring Physician Niki Vazquez DO Number 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 Suggestive of diastolic dysfunction. Signature ------- ------- Findings Left Ventricle Normal left ventricle structure [...] Gradient: 4.03 mmHg Estimated PASP: 40.86 mmHg OR ED Velocity: 1.27 m/s LVOT Peak Velocity: [...] cm LVOT Diameter: 1.65 cm [facility], [place] Joseph, Chpo Incoming Cardiovascular Results From [facility] - 11/16/2018 5:05 PM EDT Transthoracic Echocardiography Report (TTE) Demographics Patient Name MERCY GANDHI Gender Female Patient Number [id number] Race Unknown Ethnicity Visit Number [id number] Room Number R238 Corporate ID Date of Study 11/16/2018 Referring Physician Holjohanny Vazquez DO Number 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 Suggestive of diastolic dysfunction. Signature ------- ------- Findings Left Ventricle Normal left ventricle structure [...] Gradient: 4.03 mmHg Estimated PASP: 40.86 mmHg OR ED Velocity: 1.27 m/s LVOT Peak Velocity: [...] Root: 2.35 cm LVOT Diameter: 1.65 cm [place] Microscopic Urinalysison Bacteria, UA Negative /HPF [place] Epi Cells 3-5 /HPF [place] Interpretation and review of laboratory results Abnormal [place] RBC (U) [#/Vol] 3-5 Abnormal [facility] Josiaha [place] Renal Epithelial, Urine 0-2 Abnormal /HPF [place] WBC, UA None seen [place] US CAROTID ARTERY BILATERALo n 11-16-2018 [...] Damped resistive CCA decreased decreased resistive CCA [place], [place] Joseph, Chpo Incoming Radiant Results From [employer] [employer] - 11/16/2018 10:40 AM EDT Patient : [...] Damped resistive CCA decreased decreased resistive CCA [place] Patient : 1935 Age: 83 years Gender: [...] and noncalcified plaque bilateral carotid arterial systems [place] US DUP LOWER EXTREMITIES VAUGHN ATERAL [...] [facility] [address] [place] [address] Epithelial cells LM Ql (Urine sed) 3-5 Normal [facility] Comment on above: Performed By: #### P TT #### [facility] [address] [place] [address] RBC (U) [#/Vol] 3-5 Abnormal 0-2 [facility] Comment on above: Performed By: #### P TT #### [facility] [address] [place] [address] Urine Renal Epithelial 0-2 Abnormal [facility] Comment on above: Performed By: #### P TT #### [facility] [address] [place] [address] WBC (U) [#/Vol] None seen Normal 0-5 [facility] Comment on above: Performed By: #### P TT #### [facility] [address] [place] [address] XR CHEST PORTABLEon 11-17-19 19 Joseph, Chpo Incoming Radiant Results From [employer] - 11/16/2018 10:21 AM EDT EXAMINATION: XR CHEST PORTABLE CLINICAL HISTORY: fever . History of back surgery. COMPARISONS: None available. FINDINGS: Single AP portable view the chest obtained on November 15, 2018 at 2124 hours. The heart is not enlarged. Mediastinum is not widened. Calcified aorta is not dilated. Lungs are clear. The chest wall is unremarkable. CONCLUSION: NO ACUTE PROCESS [place] EXAMINATION: XR CHEST PORTABLE CLINICAL HISTORY: fever . History of back surgery. COMPARISONS: None available. FINDINGS: Single AP portable view the chest obtained on November 15, 2018 at 2124 hours. The heart is not enlarged. Mediastinum is not widened. Calcified aorta is not dilated. Lungs are clear. The chest wall is unremarkable. CONCLUSION: NO ACUTE PROCESS [facility], [place] CBC Auto Differentialon 10-22 Anisocytosis Ql (Bld) 1+ [place] Bands Relative 4 % Low 5 - 11 % [place] Basophils (Bld) [#/Vol] 0.0 10*3/uL 0 - 0.2 K/u L [place] Basophils/100 WBC (Bld) 0.6 % [place] Eosinophils (Bld) [#/Vol] 0.0 10*3/uL 0 - 0.7 K/uL [place] Eosinophils/100 WBC (Bld) 0.9 % [place] Erythrocyte distribution width (RBC) [Ratio] 14.6 % High 11.5 - 14.5 % [place] Hematocrit (Bld) [Volume fraction] 33.3 % Low 37 - 47 % [place] Hemoglobin (Bld) [Mass/Vol] 10.9 g/dL Low 12 - 16 g/dL [place] Interpretation and review of laboratory results Abnormal [place] Lymphocytes (Bld) [#/Vol] 3.5 10*3/uL 1 - 4.8 K/uL [place] Lymphocytes/100 WBC (Bld) 17.0 % [place] MCH (RBC) [Entitic mass] 29.8 pg 27 - 31.3 p g [place] MCHC (RBC) [Mass/Vol] 32.9 % Low 33 - 37 % [place] MCV (RBC) [Entitic vol] 90.7 fL 82 - 100 fL [place] Microcytes 1+ [place] Monocytes (Bld) [#/Vol] 0.0 10*3/uL Low 0.2 - 0.8 K/uL [place] Monocytes/100 WBC (Bld) 7.7 % [place] Neutrophils Absolute 17.3 K/uL High 1.4 - 6 .5 K/uL [place] Neutrophils/100 WBC (Bld) 79.0 % [place] PLATELET SLIDE REVIEW Normal [place] Platelets (Bld) [#/Vol] 315 10*3/uL 130 - 400 K/uL [place] RBC (Bld) [#/Vol] 3.67 10*6/uL Low [place] WBC (Bld) [#/Vol] 20.8 10*3/uL High 4.8 - 10.8 K/uL [facility], [place] CBC With Platelet No Differe romaon 11-15-2018 Erythrocyte distribution width (RBC) [Ratio] 14.5 % Normal 11.5-14.5 [facility] Comment on above: Performed By: #### P TT #### [facility] [address] [place] [address] Hematocrit (Bld) [Volume fraction] 36.9 % Low 37.0-47.0 [facility] Comment on above: Performed By: #### P TT #### [facility] [address] [place] [address] Hemoglobin (Bld) [Mass/Vol] 11.9 g/dL Low 12.0-16.0 [facility] Comment on above: Performed By: #### P TT #### [facility] [address] [place] [address] MCH (RBC) [Entitic mass] 29.4 pg Normal 27.0-31.3 [facility] Comment on above: Performed By: #### P TT #### [facility] [address] [place] [address] MCHC (RBC) [Mass/Vol] 32.3 % Low 33.0-37.0 [facility] Comment on above: Performed By: #### P TT #### [facility] [address] [place] [address] MCV (RBC) [Entitic vol] 91.1 fL Normal 82.0-100.0 [facility] Comment on above: Performed By: #### P TT #### [facility] [address] [place] [address] Platelets (Bld) [#/Vol] 341 10*3/uL Normal 130-400 [facility] Comment on above: Performed By: #### P TT #### [facility] [address] [place] [address] RBC (Bld) [#/Vol] 4.05 10*6/uL Low 4.20-5.40 [facility] Comment on above: Performed By: #### P TT #### [facility] [address] [place] [address] WBC (Bld) [#/Vol] 19.8 10*3/uL Critically high 4.8-10.8 [facility] Comment on above: Performed By: #### P TT #### [facility] [address] [place] [address] CBC With Platelet and Differ entialon 11-15-2018 Anisocytosis Ql (Bld) 1+ Normal [facility] Comment on above: Performed By: #### P TT #### [facility] [address] [place] [address] Bands 4 % Low 5-11 [facility] Comment on above: Performed By: #### P TT #### [facility] [address] [place] [address] Basophils (Bld) [#/Vol] 0.0 10*3/uL Normal 0.0-0.2 [facility] Comment on above: Performed By: #### P TT #### [facility] [address] [place] [place] [address] Basophils/100 WBC (Bld) 0.6 % Normal [facility] Comment on above: Performed By: #### P TT #### [facility] [address] [place] [place] [address] Eosinophils (Bld) [#/Vol] 0.0 10*3/uL Normal 0.0-0.7 [facility] Comment on above: Performed By: #### P TT #### [facility] [address] [place] [place] [address] Eosinophils/100 WBC (Bld) 0.9 % Normal [facility] Comment on above: Performed By: #### P TT #### [facility] [address] [place] [place] [address] Lymphocytes (Bld) [#/Vol] 3.5 10*3/uL Normal 1.0-4.8 [facility] Comment on above: Performed By: #### P TT #### [facility] [address] [place] [address] Lymphocytes/100 WBC (Bld) 17.0 % Normal [facility] Comment on above: Performed By: #### P TT #### [facility] [address] [place] [address] Microcytic 1+ Normal [facility] Comment on above: Performed By: #### P TT #### [facility] [address] [place] [address] Monocytes (Bld) [#/Vol] 0.0 10*3/uL Low 0.2-0.8 [facility] Comment on above: Performed By: #### P TT #### [facility] [address] [place] [address] Monocytes/100 WBC (Bld) 7.7 % Normal [facility] Comment on above: Performed By: #### P TT #### [facility] [address] [place] [address] Neutrophils (Bld) [#/Vol] 17.3 10*3/uL Critically high 1.4-6.5 [facility] Comment on above: Performed By: #### P TT #### [facility] [address] [place] [address] Neutrophils/100 WBC (Bld) 79.0 % Normal [facility] Comment on above: Performed By: #### P TT #### [facility] [address] [place] [address] Platelet Slide Review Normal Normal [facility] Comment on above: Performed By: #### P TT #### [facility] [address] [place] [address] Erythrocyte distribution width (RBC) [Ratio] 14.6 % Critically high 11.5-14.5 [facility] Comment on above: Performed By: #### P TT #### [facility] [address] [place] [place] [address] Hematocrit (Bld) [Volume fraction] 33.3 % Low 37.0-47.0 [facility] Comment on above: Performed By: #### P TT #### [facility] [address] [place] [address] Hemoglobin (Bld) [Mass/Vol] 10.9 g/dL Low 12.0-16.0 [facility] Comment on above: Performed By: #### P TT #### [facility] [address] [place] [address] MCH (RBC) [Entitic mass] 29.8 pg Normal 27.0-31.3 [facility] Comment on above: Performed By: #### P TT #### [facility] [address] [place] [address] MCHC (RBC) [Mass/Vol] 32.9 % Low 33.0-37.0 [facility] Comment on above: Performed By: #### P TT #### [facility] [address] [place] [address] MCV (RBC) [Entitic vol] 90.7 fL Normal 82.0-100.0 [facility] Comment on above: Performed By: #### P TT #### [facility] [address] [place] [address] Platelets (Bld) [#/Vol] 315 10*3/uL Normal 130-400 [facility] Comment on above: Performed By: #### P TT #### [facility] [address] [place] [place] [address] RBC (Bld) [#/Vol] 3.67 10*6/uL Low 4.20-5.40 [facility] Comment on above: Performed By: #### P TT #### [facility] [address] [place] [place] [address] WBC (Bld) [#/Vol] 20.8 10*3/uL Critically high 4.8-10.8 [facility] Comment on above: Performed By: #### P TT #### [facility] [address] [place] [address] Comprehensive Metabolic Pane l reflex Mgon 11-15-2018 Albumin [Mass/Vol] 3.3 g/dL Low 3.5-4.6 [facility] Comment on above: Performed By: #### P TT #### [facility] [address] [place] [address] ALP [Catalytic activity/Vol] 71 U/L Normal 40-130 [facility] Comment on above: Performed By: #### P TT #### [facility] [address] [place] [address] ALT [Catalytic activity/Vol] 12 U/L Normal 0-33 [facility] Comment on above: Performed By: #### P TT #### [facility] [address] [place] [address] Anion gap [Moles/Vol] 11 mmol/L Normal 9-15 [facility] Comment on above: Performed By: #### P TT #### [facility] [address] [place] [address] AST [Catalytic activity/Vol] 28 U/L Normal 0-35 [facility] Comment on above: Performed By: #### P TT #### [facility] [address] [place] [address] Bilirubin [Mass/Vol] 0.4 mg/dL Normal 0.2-0.7 [facility] Comment on above: Performed By: #### P TT #### [facility] [address] [place] [address] Calcium [Mass/Vol] 9.1 mg/dL Normal 8.5-9.9 [facility] Comment on above: Performed By: #### P TT #### [facility] [address] [place] [address] Chloride [Moles/Vol] 98 mmol/L Normal 95-107 [facility] Comment on above: Performed By: #### P TT #### [facility] [address] [place] [address] CO2 [Moles/Vol] 27 mmol/L Normal 20-31 [facility] Comment on above: Performed By: #### P TT #### [facility] [address] [place] [address] Creatinine [Mass/Vol] 0.59 mg/dL Normal 0.50-0.90 [facility] Comment on above: Performed By: #### P TT #### [facility] [address] [place] [address] GFR/1.73 sq M predicted among blacks MDRD (S/P/Bld) [Vol rate/Area] mL/min/{1.73_m2} Normal >60 [facility] Comment on above: Result Comment: >60 mL/min/1.73m2 EGFR, calc. for ages 18 and older using the MDRD formula (not corrected for weight), is valid for stable renal function. Performed By: #### P TT #### [facility] [address] [place] [address] GFR/1.73 sq M.predicted MDRD (S/P/Bld) [Vol rate/Area] mL/min/{1.73_m2} Normal >60 [facility] Comment on above: Result Comment: >60 mL/min/1.73m2 EGFR, calc. for ages 18 and older using the MDRD formula (not corrected for weight), is valid for stable renal function. Performed By: #### P TT #### [facility] [address] [place] [address] Globulin (S) [Mass/Vol] 3.2 g/dL Normal 2.3-3.5 [facility] Comment on above: Performed By: #### P TT #### [facility] [address] [place] [address] Glucose [Mass/Vol] 123 mg/dL Critically high 70-99 [facility] Comment on above: Performed By: #### P TT #### [facility] [address] [place] [address] Potassium reflex Mg 3.8 mEq/L Normal 3.4-4.9 [facility] Comment on above: Performed By: #### P TT #### [facility] [address] [place] [address] Protein [Mass/Vol] 6.5 g/dL Normal 6.3-8.0 [facility] Comment on above: Performed By: #### P TT #### [facility] [address] [place] [address] Sodium [Moles/Vol] 136 mmol/L Normal 135-144 [facility] Comment on above: Performed By: #### P TT #### [facility] [address] [place] [address] Urea nitrogen [Mass/Vol] 6 mg/dL Low 8-23 [facility] Comment on above: Performed By: #### P TT #### [facility] [address] [place] [address] Culture, Blood 2on 9 Culture, Blood 2 ORDERED BY: ADDY COKER SOURCE: Blood COLLECTED: 11/15/18 16:37 ANTIBIOTICS AT DI.: RECEIVED : 11/15/18 16:42 Culture, Blood 2 FINAL 11/20/18 18:15 No growth after 5 days of incubation. Normal [facility] Comment on above: Performed By: #### C MP #### [facility] [address] [place] [address] Culture, Urineon 11-15-2018 Culture, Urine ORDERED BY: ADDY COKER SOURCE: Urine Clean Catch COLLECTED: 11/15/18 19:05 ANTIBIOTICS AT DI.: RECEIVED : 11/15/18 19:05 Culture, Urine FINAL 11/17/18 07:28 No growth 24 hours Normal [facility] Comment on above: Performed By: #### C MP #### [facility] [address] [id number] URINE RT REFLEX TO CULTUREon 11-15-2018 Bilirubin Urine Negative Negative [place] Blood, Urine TRACE Abnormal Negative [place] Clarity, UA Clear Clear [place] Color, UA Yellow Straw/Yellow [place] Glucose, Ur Negative Negative mg/dL [place] Interpretation and review of laboratory results Abnormal [place] Ketones Ql (U) Negative Negative mg/dL [place] Leukocyte esterase Test strip Ql (U) Negative Negative [place] Nitrite, Urine Negative Negative [place] pH, UA 7.0 [place] Protein (U) [Mass/Vol] 30 mg/dL Abnormal Negative [place] Specific [place], UA 1.014 [place] Urine Reflex to Culture YES [place] Urobilinogen, Urine 0.2 <2.0 E.U./dL [place] CAROTID ARTERY BILATERALo n 11-15-2018 [...] #### [facility] [address] [facility] [address] Clarity (U) Clear Normal Clear [facility] Comment on above: Performed By: #### P TT #### [facility] [address] [facility] [address] Color (U) Yellow Normal Straw/[place] [facility] Comment on above: Performed By: #### P TT #### [facility] [address] [place] [address] Glucose Ql (U) Negative Normal Negative [facility] Comment on above: Performed By: #### P TT #### [facility] [address] [place] [address] Hemoglobin Ql (U) TRACE Abnormal Negative [facility] Comment on above: Performed By: #### P TT #### [facility] [address] [place] [address] Ketones Ql (U) Negative Normal Negative [facility] Comment on above: Performed By: #### P TT #### [facility] [address] [place] [address] Leukocyte esterase Test strip Ql (U) Negative Normal Negative [facility] Comment on above: Performed By: #### P TT #### [facility] [address] [place] [address] Nitrite Ql (U) Negative Normal Negative [facility] Comment on above: Performed By: #### P TT #### [facility] [address] [place] [address] pH (U) 7.0 [pH] Normal 5.0-9.0 [facility] Comment on above: Performed By: #### P TT #### [facility] [address] [place] [address] Protein Ql (U) 30 mg/dL Abnormal Negative [facility] Comment on above: Performed By: #### P TT #### [facility] [address] [place] [address] Specific gravity (U) [Rel density] 1.014 Normal 1.005-1.03 [facility] Comment on above: Performed By: #### P TT #### [facility] [address] [place] [address] Urine Reflexed to Culture YES Normal [facility] Comment on above: Performed By: #### P TT #### [facility] [address] [place] [address] Urobilinogen Qn (U) 0.2 {Juan'U}/dL Normal < 2.0 [facility] Comment on above: Performed By: #### P TT #### [facility] [address] [place] [address] XR CHEST PORTABLEon 11-16-19 19 XR CHEST PORTABLE EXAMINATION: XR CHEST PORTABLE [...] Anion gap [Moles/Vol] 10 mmol/L Normal 9-15 [facility] Comment on above: Performed By: #### P T #### [facility] [address] [place] [address] Calcium [Mass/Vol] 8.4 mg/dL Low 8.5-9.9 [facility] Comment on above: Performed By: #### P T #### [facility] [address] [place] [address] Chloride [Moles/Vol] 100 mmol/L Normal 95-107 [facility] Comment on above: Performed By: #### P T #### [facility] [address] [place] [address] CO2 [Moles/Vol] 25 mmol/L Normal 20-31 [facility] Comment on above: Performed By: #### P T #### [facility] [facility] [address] [place] [address] Creatinine [Mass/Vol] 0.66 mg/dL Normal 0.50-0.90 [facility] Comment on above: Performed By: #### P T #### [facility] [address] [place] [address] GFR/1.73 sq M predicted among blacks MDRD (S/P/Bld) [Vol rate/Area] mL/min/{1.73_m2} Normal >60 [facility] Comment on above: Result Comment: >60 mL/min/1.73m2 EGFR, calc. for ages 18 and older using the MDRD formula (not corrected for weight), is valid for stable renal function. Performed By: #### P T #### [facility] [address] [place] [address] GFR/1.73 sq M.predicted MDRD (S/P/Bld) [Vol rate/Area] mL/min/{1.73_m2} Normal >60 [facility] Comment on above: Result Comment: >60 mL/min/1.73m2 EGFR, calc. for ages 18 and older using the MDRD formula (not corrected for weight), is valid for stable renal function. Performed By: #### P T #### [facility] [address] [place] [address] Glucose [Mass/Vol] 144 mg/dL Critically high 70-99 [facility] Comment on above: Performed By: #### P T #### [facility] [address] [place] [address] Potassium reflex Mg 4.1 mEq/L Normal 3.4-4.9 [facility] Comment on above: Performed By: #### P T #### [facility] [address] [place] [address] Sodium [Moles/Vol] 135 mmol/L Normal 135-144 [facility] Comment on above: Performed By: #### P T #### [facility] [address] [place] [address] Urea nitrogen [Mass/Vol] 6 mg/dL Low 8-23 [facility] Comment on above: Performed By: #### P T #### [facility] [address] [place] [address] CBC With Platelet and Differ entialon 11-14-2018 Basophils (Bld) [#/Vol] 0.1 10*3/uL Normal 0.0-0.2 [facility] Comment on above: Performed By: #### P T #### [facility] [address] [place] [address] Basophils/100 WBC (Bld) 0.5 % Normal [facility] Comment on above: Performed By: #### P T #### [facility] [address] [place] [address] Eosinophils (Bld) [#/Vol] 0.1 10*3/uL Normal 0.0-0.7 [facility] Comment on above: Performed By: #### P T #### [facility] [address] [place] [address] Eosinophils/100 WBC (Bld) 0.8 % Normal [facility] Comment on above: Performed By: #### P T #### [facility] [address] [place] [address] Erythrocyte distribution width (RBC) [Ratio] 14.1 % Normal 11.5-14.5 [facility] Comment on above: Performed By: #### P T #### [facility] [address] [place] [address] Hematocrit (Bld) [Volume fraction] 35.4 % Low 37.0-47.0 [facility] Comment on above: Performed By: #### P T #### [facility] [address] [place] [address] Hemoglobin (Bld) [Mass/Vol] 11.7 g/dL Low 12.0-16.0 [facility] Comment on above: Performed By: #### P T #### [facility] [address] [place] [address] Lymphocytes (Bld) [#/Vol] 2.7 10*3/uL Normal 1.0-4.8 [facility] Comment on above: Performed By: #### P T #### [facility] [address] [place] [address] Lymphocytes/100 WBC (Bld) 15.7 % Normal [facility] Comment on above: Performed By: #### P T #### [facility] [address] [place] [address] MCH (RBC) [Entitic mass] 29.7 pg Normal 27.0-31.3 [facility] Comment on above: Performed By: #### P T #### [facility] [address] [place] [address] MCHC (RBC) [Mass/Vol] 33.1 % Normal 33.0-37.0 [facility] Comment on above: Performed By: #### P T #### [facility] [address] [place] [address] MCV (RBC) [Entitic vol] 89.6 fL Normal 82.0-100.0 [facility] Comment on above: Performed By: #### P T #### [facility] [address] [place] [address] Monocytes (Bld) [#/Vol] 1.4 10*3/uL Critically high 0.2-0. 8 [facility] Comment on above: Performed By: #### P T #### [facility] [address] [place] [address] Monocytes/100 WBC (Bld) 7.9 % Normal [facility] Comment on above: Performed By: #### P T #### [facility] [address] [place] [address] Neutrophils (Bld) [#/Vol] 12.8 10*3/uL Critically high 1.4-6.5 [facility] Comment on above: Performed By: #### P T #### [facility] [address] [place] [address] Neutrophils/100 WBC (Bld) 75.1 % Normal [facility] Comment on above: Performed By: #### P T #### [facility] [address] [place] [address] Platelets (Bld) [#/Vol] 345 10*3/uL Normal 130-400 [facility] Comment on above: Performed By: #### P T #### [facility] [address] [place] [address] RBC (Bld) [#/Vol] 3.95 10*6/uL Low 4.20-5.40 [facility] Comment on above: Performed By: #### P T #### [facility] [address] [place] [address] WBC (Bld) [#/Vol] 17.0 10*3/uL Critically high 4.8-10.8 [facility] Comment on above: Performed By: #### P T #### [facility] [address] [place] [address] POCT Glucoseon 11-14-2018 Glucose [Mass/Vol] 116 mg/dL Critically high 60-115 [facility] Comment on above: Performed By: #### P T #### [facility] [address] [place] [address] POC Performed on ACCU-CHEK Normal [facility] Comment on above: Performed By: #### P T #### [facility] [address] [place] [address] XR LUMBAR SPINE (2-3 VIEWS)o n 11-14-2018 [...] Anion gap [Moles/Vol] 13 mmol/L Normal 9-15 [facility] Comment on above: Performed By: #### P T #### [facility] [address] [place] [address] Calcium [Mass/Vol] 9.0 mg/dL Normal 8.5-9.9 [facility] Comment on above: Performed By: #### P T #### [facility] [address] [place] [address] Chloride [Moles/Vol] 101 mmol/L Normal 95-107 [facility] Comment on above: Performed By: #### P T #### [facility] [address] [place] [address] CO2 [Moles/Vol] 24 mmol/L Normal 20-31 [facility] Comment on above: Performed By: #### P T #### [facility] [address] [place] [address] Creatinine [Mass/Vol] 0.62 mg/dL Normal 0.50-0.90 [facility] Comment on above: Performed By: #### P T #### [facility] [address] [place] [address] GFR/1.73 sq M predicted among blacks MDRD (S/P/Bld) [Vol rate/Area] mL/min/{1.73_m2} Normal >60 [facility] Comment on above: Result Comment: >60 mL/min/1.73m2 EGFR, calc. for ages 18 and older using the MDRD formula (not corrected for weight), is valid for stable renal function. Performed By: #### P T #### [facility] [address] [place] [address] GFR/1.73 sq M.predicted MDRD (S/P/Bld) [Vol rate/Area] mL/min/{1.73_m2} Normal >60 [facility] Comment on above: Result Comment: >60 mL/min/1.73m2 EGFR, calc. for ages 18 and older using the MDRD formula (not corrected for weight), is valid for stable renal function. Performed By: #### P T #### [facility] [address] [place] [address] Glucose [Mass/Vol] 136 mg/dL Critically high 70-99 [facility] Comment on above: Performed By: #### P T #### [facility] [address] [place] [address] Potassium reflex Mg 3.6 mEq/L Normal 3.4-4.9 [facility] Comment on above: Performed By: #### P T #### [facility] [address] [place] [address] Sodium [Moles/Vol] 138 mmol/L Normal 135-144 [facility] Comment on above: Performed By: #### P T #### [facility] [address] [place] [address] Urea nitrogen [Mass/Vol] 7 mg/dL Low 8-23 [facility] Comment on above: Performed By: #### P T #### [facility] [address] [place] [address] CBC With Platelet No Differe ntialon 11-13-2018 Erythrocyte distribution width (RBC) [Ratio] 14.2 % Normal 11.5-14.5 [facility] Comment on above: Performed By: #### P T #### [facility] [address] [place] [address] Hematocrit (Bld) [Volume fraction] 40.3 % Normal 37.0-47.0 [facility] Comment on above: Performed By: #### P T #### [facility] [address] [place] [address] Hemoglobin (Bld) [Mass/Vol] 13.1 g/dL Normal 12.0-16.0 [facility] Comment on above: Performed By: #### P T #### [facility] [address] [place] [address] MCH (RBC) [Entitic mass] 29.1 pg Normal 27.0-31.3 [facility] Comment on above: Performed By: #### P T #### [facility] [address] [place] [address] MCHC (RBC) [Mass/Vol] 32.4 % Low 33.0-37.0 [facility] Comment on above: Performed By: #### P T #### [facility] [address] [place] [address] MCV (RBC) [Entitic vol] 89.9 fL Normal 82.0-100.0 [facility] Comment on above: Performed By: #### P T #### [facility] [address] [place] [address] Platelets (Bld) [#/Vol] 394 10*3/uL Normal 130-400 [facility] Comment on above: Performed By: #### P T #### [facility] [address] [place] [address] RBC (Bld) [#/Vol] 4.48 10*6/uL Normal 4.20-5.40 [facility] Comment on above: Performed By: #### P T #### [facility] [address] [place] [address] WBC (Bld) [#/Vol] 11.8 10*3/uL Critically high 4.8-10.8 [facility] Comment on above: Performed By: #### P T #### [facility] [address] [place] [address] Culture, MRSA Screenon 11-13 Culture, MRSA Screen ORDERED BY: BRENNAN HERRON SOURCE: Nares COLLECTED: 11/13/18 09:29 ANTIBIOTICS AT DI.: RECEIVED : 11/13/18 09:29 Culture, MRSA Screen FINAL 11/14/18 08:02 No MRSA isolated Normal [facility] Comment on above: Performed By: #### P T #### [place] [id number] FLUORO FOR SURGICAL PROCEDUR ESon 11-13-2018 FLUORO [...] Hospital Surgical Specimenon 11-14-19 19 Surgical Specimen [facility] [address] [place], [place] [id number] FINAL SURGICAL PATHOLOGY REPORT Patient Name: HIRAM MADRID Accession No: [id number] Age Sex: 1935 Location: [facility] [id number] Account No: [id number] Collected: 11/13/2018 Med Rec No: [id number] Received: 11/14/2018 Attend Phys: LENNY CORRAL Completed: [...] two cassettes after brief decalcification. UVALDO/NIKKY CPT: 13417 X1 14606 X1 STANLEY GRAFF M.D. 11/15/2018 Electronically signed out by Page 1 of 1 [facility] Comment on above: Performed By: #### P TT #### [facility] [address] [place] [address] Type and Screen Capture 3 sc rn cellon 11-13-2018 Type and Screen Capture 3 scrn cell PATIENT: MERCY GANDHI LOC: LCOPS,ORPOOL,NON BILL# : [id number] : 1935 SEX: F ORDERED BY: GOPAL AMIN ORDERED : 11/13/2018 08:10 COLLECTED: 11/13/2018 09:24 ORDER : [id number] RECEIVED : 11/13/2018 09:24 -- TEST NAME RESULT UNITS RANGES ABN FL ST ABORH Capture A POS F Antibody 3 Cell Scrn Captu NEG F - Normal [facility] Comment on above: Performed By: #### T S3C #### [facility] [address] [place] [address] XR SPINE ENTIRE (2-3 VIEWS)o n 11-13-2018 [...] SIGNS OF UNDERLYING PATHOLOGY OR RECENT INJURY. [facility] [place], [place] Joseph, Chpo Incoming Radiant Results From [facility] - 11/05/2018 3:07 PM EDT EXAMINATION: MRI [...] SIGNS OF UNDERLYING PATHOLOGY OR RECENT INJURY. [place] MRI LUMBAR SPINE W WO CONTRAST [...] Normal [facility] Otheron 11-05-2018 Joseph, po Incoming Radiant Results From [facility]/Pacs - 11/05/2018 1:21 PM EDT EXAMINATION: XR [...] AND POSTOPERATIVE FINDINGS, WITHOUT ACUTE SUPERIMPOSED ABNORMALITY. [place] EXAMINATION: XR LUMBAR SPINE (MIN 4 [...] AND POSTOPERATIVE FINDINGS, WITHOUT ACUTE SUPERIMPOSED ABNORMALITY. [place] XR CHEST (2 VW)on 11-05-2018 XR [...] 11-04-2018 aPTT Coag (Bld) [Time] 27.9 s [place], [place] Comment on above: Effective 09/06/2018: Please note methodology and/or reference ranges have changed. aPTT - Heparin Therapeutic Range: 74.0 - 106 seconds C-Reactive Proteinon 019 CRP [Mass/Vol] 1.3 mg/L Normal 0.0-5.0 [facility] Comment on above: Performed By: #### C RP #### [facility] [address] [place] [address] CRP [Mass/Vol] 1.3 mg/L 0 - 5 mg/L [place], [place] CBC Auto Differentialon 10-21 Basophils (Bld) [#/Vol] 0.1 10*3/uL 0 - 0.2 K/u L [place], [place] Basophils/100 WBC (Bld) 1.1 % [place], [place] Eosinophils (Bld) [#/Vol] 0.2 10*3/uL 0 - 0.7 K/uL [place] Eosinophils/100 WBC (Bld) 1.3 % [place] Erythrocyte distribution width (RBC) [Ratio] 13.9 % 11.5 - 14.5 % [place] Hematocrit (Bld) [Volume fraction] 41.3 % 37 - 47 % [place] Hemoglobin (Bld) [Mass/Vol] 14.3 g/dL 12 - 16 g/dL [place] Interpretation and review of laboratory results Abnormal [place] Lymphocytes (Bld) [#/Vol] 3.5 10*3/uL 1 - 4.8 K/uL [place] Lymphocytes/100 WBC (Bld) 28.2 % [place] MCH (RBC) [Entitic mass] 30.5 pg 27 - 31.3 p g [place] MCHC (RBC) [Mass/Vol] 34.6 % 33 - 37 % [place] MCV (RBC) [Entitic vol] 88.0 fL 82 - 100 fL [place] Monocytes (Bld) [#/Vol] 0.8 10*3/uL 0.2 - 0.8 K/uL [place] Monocytes/100 WBC (Bld) 6.8 % [place] Neutrophils Absolute 7.7 K/uL High 1.4 - 6 .5 K/uL [place] Neutrophils/100 WBC (Bld) 62.6 % [place] Platelets (Bld) [#/Vol] 435 10*3/uL High 130 - 400 K/uL [place] RBC (Bld) [#/Vol] 4.69 10*6/uL [place] WBC (Bld) [#/Vol] 12.4 10*3/uL High 4.8 - 10.8 K/uL [place] CBC With Platelet and Differ entialon 11-04-2018 Basophils (Bld) [#/Vol] 0.1 10*3/uL Normal 0.0-0.2 [facility] Comment on above: Performed By: #### C BCWD #### [facility] [address] [place] [address] Basophils/100 WBC (Bld) 1.1 % Normal [facility] Comment on above: Performed By: #### C BCWD #### [facility] [address] [place] [address] Eosinophils (Bld) [#/Vol] 0.2 10*3/uL Normal 0.0-0.7 [facility] Comment on above: Performed By: #### C BCWD #### [facility] [address] [place] [address] Eosinophils/100 WBC (Bld) 1.3 % Normal [facility] Comment on above: Performed By: #### C BCWD #### [facility] [address] [place] [address] Erythrocyte distribution width (RBC) [Ratio] 13.9 % Normal 11.5-14.5 [facility] Comment on above: Performed By: #### C BCWD #### [facility] [address] [place] [address] Hematocrit (Bld) [Volume fraction] 41.3 % Normal 37.0-47.0 [facility] Comment on above: Performed By: #### C BCWD #### [facility] [address] [place] [address] Hemoglobin (Bld) [Mass/Vol] 14.3 g/dL Normal 12.0-16.0 [facility] Comment on above: Performed By: #### C BCWD #### [facility] [address] [place] [address] Lymphocytes (Bld) [#/Vol] 3.5 10*3/uL Normal 1.0-4.8 [facility] Comment on above: Performed By: #### C BCWD #### [facility] [address] [place] [address] Lymphocytes/100 WBC (Bld) 28.2 % Normal [facility] Comment on above: Performed By: #### C BCWD #### [facility] [address] [place] [address] MCH (RBC) [Entitic mass] 30.5 pg Normal 27.0-31.3 [facility] Comment on above: Performed By: #### C BCWD #### [facility] [address] [place] [address] MCHC (RBC) [Mass/Vol] 34.6 % Normal 33.0-37.0 [facility] Comment on above: Performed By: #### C BCWD #### [facility] [address] [place] [address] MCV (RBC) [Entitic vol] 88.0 fL Normal 82.0-100.0 [facility] Comment on above: Performed By: #### C BCWD #### [facility] [address] [place] [address] Monocytes (Bld) [#/Vol] 0.8 10*3/uL Normal 0.2-0.8 [facility] Comment on above: Performed By: #### C BCWD #### [facility] [address] [place] [address] Monocytes/100 WBC (Bld) 6.8 % Normal [facility] Comment on above: Performed By: #### C BCWD #### [facility] [address] [place] [address] Neutrophils (Bld) [#/Vol] 7.7 10*3/uL Critically high 1.4-6.5 [facility] Comment on above: Performed By: #### C BCWD #### [facility] [address] [place] [address] Neutrophils/100 WBC (Bld) 62.6 % Normal [facility] Comment on above: Performed By: #### C BCWD #### [facility] [address] [place] [address] Platelets (Bld) [#/Vol] 435 10*3/uL Critically high 130-40 0 [facility] Comment on above: Performed By: #### C BCWD #### [facility] [address] [place] [address] RBC (Bld) [#/Vol] 4.69 10*6/uL Normal 4.20-5.40 [facility] Comment on above: Performed By: #### C BCWD #### [facility] [address] [place] [address] WBC (Bld) [#/Vol] 12.4 10*3/uL Critically high 4.8-10.8 [facility] Comment on above: Performed By: #### C BCWD #### [facility] [address] [place] [address] Comprehensive Metabolic Pane carlos 11-04-2018 Anion gap [Moles/Vol] 14 mmol/L Normal 9-15 [facility] Comment on above: Order Comment: CALL [facility] tel. [phone], Potassium results called to and read back by onofre Millan RN, 11/04/2018 16:24, by [facility] Performed By: #### C MP #### [facility] [address] [place] [address] Bilirubin [Mass/Vol] 0.4 mg/dL Normal 0.2-0.7 [facility] Comment on above: Order Comment: CALL [facility] tel. [phone], Potassium results called to and read back by onofre Millan RN, 11/04/2018 16:24, by [facility] Performed By: #### C MP #### [facility] [address] [place] [address] GFR/1.73 sq M predicted among blacks MDRD (S/P/Bld) [Vol rate/Area] mL/min/{1.73_m2} Normal >60 [facility] Comment on above: Order Comment: CALL [facility] tel. [phone], Potassium results called to and read back by onofre Millan RN, 11/04/2018 16:24, by [facility] Result Comment: >60 mL/min/1.73m2 EGFR, calc. for ages 18 and older using the MDRD formula (not corrected for weight), is valid for stable renal function. Performed By: #### C MP #### [facility] [address] [place] [address] GFR/1.73 sq M.predicted MDRD (S/P/Bld) [Vol rate/Area] mL/min/{1.73_m2} Normal >60 [facility] Comment on above: Order Comment[phone] Potassium results called to and read back by onofre Millan RN, 11/04/2018 16:24, by [facility] Result Comment: >60 mL/min/1.73m2 EGFR, calc. for ages 18 and older using the MDRD formula (not corrected for weight), is valid for stable renal function. Performed By: #### C MP #### [facility] [address] [place] [place] [address] Albumin [Mass/Vol] 4.5 g/dL Normal 3.5-4.6 [facility], [place] Comment on above: Order Comment: [facility] [phone], Potassium results called to and read back by onofre Millan RN, 11/04/2018 16:24, by [facility] Performed By: #### C MP #### [facility] [address] [place] [address] ALP [Catalytic activity/Vol] 76 U/L Normal 40-130 [facility], [place] Comment on above: Order Comment: [phone], Potassium results called to and read back by onofre Millan RN, 11/04/2018 16:24, by [facility] Performed By: #### C MP #### [facility] [address] [place] [place] [address] ALT [Catalytic activity/Vol] 15 U/L Normal 0-33 [facility] [place] Comment on above: Order Comment: CALL [facility] tel. [phone], Potassium results called to and read back by onofre Millan RN, 11/04/2018 16:24, by [facility] Performed By: #### C MP #### [facility] [address] [facility] [address] AST [Catalytic activity/Vol] 20 U/L Normal 0-35 [facility] [place] Comment on above: Order Comment: CALL [facility] tel. [phone], Potassium results called to and read back by onofre Millan RN, 11/04/2018 16:24, by [facility] Performed By: #### C MP #### [facility] [address] [facility] [address] Calcium [Mass/Vol] 9.9 mg/dL Normal 8.5-9.9 [place] Comment on above: Order Comment: CALL [facility] tel. [phone], Potassium results called to and read back by onofre Millan RN, 11/04/2018 16:24, by [facility] Performed By: #### C MP #### [facility] [address] [facility] [place] [address] Chloride [Moles/Vol] 96 mmol/L Normal 95-107 [place], [place] Comment on above: Order Comment: CALL [facility] tel. [phone], Potassium results called to and read back by onofre Millan RN, 11/04/2018 16:24, by [facility] Performed By: #### C MP #### [facility] [address] [facility] [address] CO2 [Moles/Vol] 24 mmol/L Normal 20-31 [facility], [place] Comment on above: Order Comment: CALL [facility] tel. [phone], Potassium results called to and read back by onofre Millan RN, 11/04/2018 16:24, by [facility] Performed By: #### C MP #### [facility] [address] [place] [address] Creatinine [Mass/Vol] 0.67 mg/dL Normal 0.50-0.90 [place] Comment on above: Order Comment: CALL [facility] tel. [phone], Potassium results called to and read back by onofre Millan RN, 11/04/2018 16:24, by [facility] Performed By: #### C MP #### [facility] [address] [facility] [address] Globulin (S) [Mass/Vol] 2.8 g/dL Normal 2.3-3.5 [place], [place] Comment on above: Order Comment: CALL [facility] tel. [phone], Potassium results called to and read back by onofre Millan RN, 11/04/2018 16:24, by [facility] Performed By: #### C MP #### [facility] [address] [facility] [address] Glucose [Mass/Vol] 109 mg/dL Critically high 70-99 [place], [place] Comment on above: Order Comment: CALL [facility] tel. [phone], Potassium results called to and read back by onofre Millan RN, 11/04/2018 16:24, by [facility] Performed By: #### C MP #### [facility] [address] [facility] [address] Potassium [Moles/Vol] 3.0 mmol/L Critically low 3.4-4.9 [place] Comment on above: Order Comment: CALL [facility] tel. [phone], Potassium results called to and read back by onofre Millan RN, 11/04/2018 16:24, by [facility] Performed By: #### C MP #### [facility] [address] [facility] [address] Protein [Mass/Vol] 7.3 g/dL Normal 6.3-8.0 [place] Comment on above: Order Comment: CALL [facility] tel. [phone], Potassium results called to and read back by onofre Millan RN, 11/04/2018 16:24, by [facility] Performed By: #### C MP #### [facility] [address] [place] [address] Sodium [Moles/Vol] 134 mmol/L Low 135-144 [place] Comment on above: Order Comment: CALL [facility] tel. [phone], Potassium results called to and read back by onofre Millan RN, 11/04/2018 16:24, by [facility] Performed By: #### C MP #### [facility] [address] [place] [address] Urea nitrogen [Mass/Vol] 8 mg/dL Normal 8-23 [place] Comment on above: Order Comment: CALL [facility] tel. [phone], Potassium results called to and read back by onofre Millan RN, 11/04/2018 16:24, by [facility] Performed By: #### C MP #### [facility] [address] [place] [address] Anion gap [Moles/Vol] 14 mmol/L [place] Bilirubin Ql (U) 0.4 mg/dL 0.2 - 0.7 mg/dL [place] GFR >60.0 >60 [place], [place] Comment on above: >60 mL/min/1.73m2 EG FR, calc. for ages 18 and older using the MDRD formula (not corrected for weight), is valid for stable renal function. GFR Non- >60.0 >60 [place], [place] Comment on above: >60 mL/min/1.73m2 EG FR, calc. for ages 18 and older using the MDRD formula (not corrected for weight), is valid for stable renal function. Interpretation and review of laboratory results Abnormal [place], [place] Potassium [Moles/Vol] CALL [facility] tel . [phone], Potassium results called to and read back by onofre Millan RN, 11/04/2018 16:24, by [employer] [place] Partial Thromboplastin Timeo n 11-04-2018 aPTT Coag (Bld) [Time] 27.9 s Normal 24.4-36.8 [facility] [place] Comment on above: Result Comment: Effe ctive 09/06/2018: Please note methodology and/or reference ranges have changed. aPTT - Heparin Therapeutic Range: 74.0 - 106 seconds Performed By: #### P TT #### [facility] [address] [place] [address] Prothrombin Timeon 9 INR Coag (PPP) [Relative [...] T #### [facility] [address] [facility] [address] PT Coag (PPP) [Time] 12.1 s Low 12.3-14.9 [facility] Comment on above: Result Comment: Effe ctive 08/30/18 Please note methodology and/or reference ranges have changed. Performed By: #### P T #### [facility] [address] [facility] [address] Protime-INRon 11-04-2018 INR Coag (PPP) [Relative time] 0.9 {INR} [facility], [place] Comment on above: Warfarin Therapy INR Therapeutic: 2.0-3.0 With Mechanical Valve: >2.5 Low-intensity Therapeutic Range: 1.5-2.0 Mod-intensity Therapeutic Range: 2.0-3.0 High-intensity Therapeutic Range: 2.5-3.5 HIgh-intensity Therapeutic Range: 3.0-4.0 Common Critical/Alarm Value: 5.0 Common Upper Limit Reported: 10.0 Effective 08/30/2018: Please note methodology and/or reference ranges have changed. Interpretation and review of laboratory results Abnormal [place] PT Coag (PPP) [Time] 12.1 s Low [place], [place] Comment on above: Effective 08/30/18 Please note methodology and/or reference ranges have changed. Sedimentation Rateon 0915-2 019 Sedimentation Rate 12 mm Normal 0-30 [facility] Comment on above: Performed By: #### E SR #### [facility] [address] [place] [address] Sed Rate 12 mm 0 - 30 mm [place] Vital Signs Date Time Vital Sign Value Performing Clinician Faci lity 01-25-2024 16:23-0500 Body temperature 98.1 [degF] Addy Daniels MD Work Phone: [facility] 01-25-2024 16:23-0500 Diastolic blood pressure 68 mm[Hg] Addy Daniels MD Work Phone: [facility] 01-25-2024 16:23-0500 Heart rate 72 /min Addy Daniels MD Work Phone: [facility] 01-25-2024 16:23-0500 Respiratory rate 16 /min Addy Daniels MD Work Phone: [facility] 01-25-2024 16:23-0500 SaO2% (BldA) [Mass fraction] 94 % Addy Daniels MD Work Phone: [facility] 01-25-2024 16:23-0500 Systolic blood pressure 157 mm[Hg] Addy Daniels MD Work Phone: [facility] 01-25-2024 05:43-0500 Body weight 68.8 kg Addy Daniels MD Work Phone: [facility] 01-23-2024 12:37-0500 Body height 154.94 cm Addy Daniels MD Work Phone: [facility] 05-03-2023 14:21-0400 Blood Pressure Location Turner DOSS [facility] [place] 05-03-2023 14:21-0400 Diastolic blood pressure 82 mm[Hg] Turner NILL [facility] [place] 05-03-2023 14:21-0400 Heart rate 76 /min Turner NILL [facility] [place] 05-03-2023 14:21-0400 Respiratory rate 16 /min Turner NILL [facility] [place] 05-03-2023 14:21-0400 Systolic blood pressure 156 mm[Hg] Turner NILL [facility] [place] 04-15-2023 13:38-0500 Diastolic blood pressure 70 mm[Hg] MD Addy Daniels Work Phone: [facility] 04-15-2023 13:38-0500 Heart rate 76 /min MD Addy Daniels Work Phone: [facility] 04-15-2023 13:38-0500 Respiratory rate 18 /min MD Addy Daniels Work Phone: [facility] 04-15-2023 13:38-0500 SaO2% (BldA) [Mass fraction] 97 % MD Addy Daniels Work Phone: [facility] 04-15-2023 13:38-0500 Systolic blood pressure 160 mm[Hg] MD Addy Daniels Work Phone: [facility] 04-15-2023 12:07-0500 Body height 154.94 cm MD Addy Daniels Work Phone: [facility] 04-15-2023 12:07-0500 Body temperature 97.8 [degF] MD Addy Daniels Work Phone: [facility] 04-15-2023 12:07-0500 Body weight 60.5 kg MD Addy Daniels Work Phone: [facility] 04-06-2023 11:51-0500 Body temperature 97.9 [degF] MD Addy Daniels Work Phone: [facility] 04-06-2023 11:51-0500 Diastolic blood pressure 76 mm[Hg] MD Addy Daniels Work Phone: [facility] 04-06-2023 11:51-0500 Heart rate 84 /min MD Addy Daniels Work Phone: [facility] 04-06-2023 11:51-0500 Respiratory rate 18 /min MD Addy Daniels Work Phone: [facility] 04-06-2023 11:51-0500 SaO2% (BldA) [Mass fraction] 97 % MD Addy Daniels Work Phone: [facility] 04-06-2023 11:51-0500 Systolic blood pressure 146 mm[Hg] MD Addy Daniels Work Phone: [facility] 04-06-2023 06:00-0500 Body weight 58.6 kg MD Addy Daniels Work Phone: [facility] 04-04-2023 13:15-0500 Body height 154.94 cm MD Addy Daniels Work Phone: [facility] 12-22-2022 11:40-0400 Blood Pressure Location MIKAYLA WEISS [facility] 12-22-2022 11:40-0400 Diastolic blood pressure 84 mm[Hg] MIKAYLA WEISS [facility] 12-22-2022 11:40-0400 Systolic blood pressure 124 mm[Hg] MIKAYLA ABDULLAHI [facility] 08-06-2022 00:10-0400 Body temperature 97.3 [degF] MD Addy Daniels Work Phone: [facility] 08-06-2022 00:10-0400 Diastolic blood pressure 74 mm[Hg] MD Addy Daniels Work Phone: [facility] 08-06-2022 00:10-0400 Heart rate 80 /min MD Addy Daniels Work Phone: [facility] 08-06-2022 00:10-0400 Respiratory rate 18 /min MD Addy Daniels Work Phone: [facility] 08-06-2022 00:10-0400 SaO2% (BldA) [Mass fraction] 96 % MD Addy Daniels Work Phone: [facility] 08-06-2022 00:10-0400 Systolic blood pressure 177 mm[Hg] MD Addy Daniels Work Phone: [facility] 08-05-2022 19:51-0400 Body height 154.94 cm MD Addy Daniels Work Phone: [facility] 08-05-2022 19:51-0400 Body weight 67.6 kg MD Addy Daniels Work Phone: [facility] 11-20-2018 07:02-0400 Body Temperature 97 [degF] [facility] [place] 11-20-2018 07:02-0400 BP Diastolic 61 mm[Hg] [facility] [place] 11-20-2018 07:02-0400 BP Systolic 153 mm[Hg] [facility] [place] 11-20-2018 07:02-0400 Pulse (Heart Rate) 75 /min Mary John PaulHenable [facility], [place] 11-20-2018 07:02-0400 Pulse Oximetry 97 % Mary CokerHenable [facility] 11-20-2018 07:02-0400 Respiratory Rate 17 /min Mary John PaulHenable [facility] 11-17-2018 05:54-0400 BMI (Body Mass Index) 27.62 kg/m2 Mary CokerHenable [facility] 11-17-2018 05:54-0400 Body weight 66.3 kg [facility] [place] 11-15-2018 15:58-0400 Height 154.9 cm Mary Vega [facility] [place] 11-05-2018 07:30-0400 BP Diastolic 57 mm[Hg] [facility] , [place] 11-05-2018 07:30-0400 BP Systolic 135 mm[Hg] [facility] , [place] 11-05-2018 07:30-0400 Pulse (Heart Rate) 70 /min [facility], [place] 11-05-2018 07:30-0400 Pulse Oximetry 97 % [facility] [place] 11-04-2018 20:06-0400 Body Temperature 98.4 [degF] [facility], [place] 11-04-2018 20:06-0400 Respiratory Rate 16 /min [facility] [place] 11-04-2018 14:56-0400 BMI (Body Mass Index) 27.4 kg/m2 [facility], [place] 11-04-2018 14:56-0400 Body weight 65.77 kg [facility] , [place] 11-04-2018 14:56-0400 Height 154.9 cm [facility] , [place] Encounters Encounter Date Encounter Type Care Provider Facility Start: 03-25-2024 End: 03-25-2024 ambulatory Addy Daniels MD Work Phone: [facility] Work Phone: Start: 03-25-2024 End: 03-25-2024 Departed Referred Addy Daniels MD Work Phone: [facility] Work Phone: Start: 03-06-2024 End: 03-06-2024 ambulatory Addy Daniels MD Work Phone: [facility] Work Phone: Start: 03-06-2024 End: 03-06-2024 Patient encounter procedure Addy Daniels MD Work Phone: [facility] Work Phone: Start: 03-01-2024 End: 03-01-2024 Patient encounter procedure Addy Daniels MD Work Phone: [facility] Work Phone: Start: 03-01-2024 End: 03-01-2024 ambulatory Addy Daniels MD Work Phone: [facility] Work Phone: Start: 01-24-2024 End: 01-25-2024 Evaluation and management of inpatient Niki Owusu Facility:[facility] Start: 01-24-2024 Non-patient / Non-visit Dayana Daniels MD Work Phone: [facility] Work Phone: Start: 01-24-2024 Non-patient / Non-visit Dayana Daniels MD Work Phone: [facility] Work Phone: Start: 06-29-2023 ambulatory MIKAYLA Taylori ty:EU Natalya Start: 06-28-2023 End: 06-28-2023 ambulatory Turner DOSS Facility: [facility] Start: 06-28-2023 End: 06-28-2023 Patient encounter procedure Turner DSOS [facility] Start: 06-21-2023 End: 06-21-2023 ambulatory MD Addy Daniels Work Phone: [facility] Work Phone: Start: 06-21-2023 End: 06-21-2023 Departed Referred MD Addy Daniels Work Phone: [facility] Start: 06-21-2023 End: 06-21-2023 ambulatory Turner DOSS Facility:[id number] Start: 05-03-2023 End: 05-03-2023 ambulatory Addy Daniels Facility:[facility]AL[facility] Start: 05-03-2023 End: 05-03-2023 Patient encounter procedure Turner R NILL [facility] Nill/[facility]aryn [facility] Start: 04-15-2023 End: 04-15-2023 Emergency department patient visit MD Addy Daniels Work Phone: [facility] Work Phone: Start: 04-13-2023 ambulatory Turner DOSS Facility:[facility] Start: 04-12-2023 Non-patient / Non-visit MD Aime Daniels Work Phone[facility] Work Phone: Start: 04-03-2023 Non-patient / Non-visit MD Aime Daniels Work Phone: [facility]rology Work Phone: Start: 04-02-2023 Non-patient / Non-visit MD Aime Daniels Work Phone: [facility] Work Phone: Start: 04-02-2023 End: 04-06-2023 Evaluation and management of inpatient MD Addy Daniels Work Phone: [facility] Work Phone: Start: 01-11-2023 End: 01-11-2023 ambulatory LES[facility] Start: 12-22-2022 End: 12-22-2022 ambulatory MIKAYLA WEISS Facility:[facility] Start: 12-22-2022 End: 12-22-2022 Patient encounter procedure MIKAYLA WEISS [facility] Natalya Start: 10-14-2022 End: 10-14-2022 ambulatory LESLY [facility] Start: 08-05-2022 End: 08-06-2022 Emergency department patient visit MD Addy Daniels Work Phone: [facility] Work Phone: Start: 06-13-2022 End: 06-14-[address] ADDY DANIELS . Facility:[facility] Start: 05-19-[address] ADDY DANIELS . Facili ty:[facility] Start: 04-18-2022 End: 04-19-[address] VALERIE DARDEN Facility:[facility] Start: 04-04-2022 End: 04-04-2022 [facility] Start: 01-30-[address] ADDY DANIELS . Facili ty:[facility] Start: 01-04-2022 End: 01-05-[address] ADDY DANIELS . Facility:[facility] Start: 12-26-2021 End: 12-29-2021 Evaluation and management of inpatient DR ADDY DANIELS . Facility:[facility] Start: 12-02-2021 End: 01-04-2022 Pre-admission assessment Alie Santos [facility] Start: 11-30-2021 End: 12-01-[address] JESUS BRUNO Facility:[facility] Start: 11-09-2021 End: 11-10-[address] CALISTA ACEVES Facility:[facility] Start: 08-06-2021 End: 08-07-[address] VALERIE DARDEN Facility:[facility] Start: 07-28-2021 End: 07-29-[address] CALISTA ACEVES Facility:[facility] Start: 06-22-2021 End: 06-22-2021 Patient encounter procedure VALERIE DARDEN [facility] Start: 11-15-2018 End: 11-20-2018 Evaluation and management of inpatient MARY VEGA [facility] Start: 11-15-2018 End: 11-20-2018 Evaluation and management of inpatient Mary SilvestrejosephSantana Work Phone: [facility] Comment on above: Spinal stenosis of l umbosacral region (Primary Dx); Impaired mobility; Vasovagal syncope Start: 11-13-2018 End: 11-15-2018 Evaluation and management of inpatient LENNY CORRAL [facility] Start: 11-13-2018 End: 11-15-2018 Patient encounter procedure LENNY CORRAL [facility] Start: 11-04-2018 End: 11-05-2018 Patient encounter procedure CALISTA ACEVES [facility] Start: 11-04-2018 End: 11-05-2018 Emergency department patient visit Lenny Corral Work Phone: [facility] Comment on above: Lumbar radiculopathy (Primary Dx); Intractable low back pain Start: 04-19-2018 End: 04-20-2018 Patient encounter procedure DEFAULT PHYSICIAN Facility:[facility] Procedures Date Procedure Procedure Detail Performing Clinician Start: 03-01-2024 X-ray of cervical spine Addy Daniels MD Work Phone: Start: 06-21-2023 Excision of basal ce ll [...] complete auto&auto difrntl wbc Lenny Jorge Luis Madseno Work Phone: Start: 11-19-2018 C-reactive protein h [...] 11-18-2018 INITIATE OXYGEN THER APY PROTOCOL CALISTA KETAN Start: 11-18-2018 INCENTIVE SPIROMETRY RT [...] Start: 11-17-2018 Sedimentation rate r bc automated CALISTAPRESLEY ACEVES Start: 11-17-2018 Blood count complete auto&auto [...] 2d w/ wom-mode compl spec&colr d Dulce Stevens Work Phone: Start: 11-16-2018 INCENTIVE SPIROMETRY RT CALISTA ACEVES Start: 11-16-2018 INCENTIVE SPIROMETRY RT CALISTA ACEVES Start: 11-16-2018 NURSING COMMUNICATION M DORA ACEVES Start: 11-16-2018 INCENTIVE SPIROMETRY RT CALISTA ACEVES Start: 11-16-2018 INITIATE OXYGEN THER APY PROTOCOL CALISTA CAEVES Start: 11-16-2018 INCENTIVE SPIROMETRY RT CALITSA ACEVES Start: 11-16-2018 Blood count complete auto&auto [...] ICAL VTE PROPHYLAXIS CALISTA ACEVES Start: 11-15-2018 LPN CMA EVAL AND TREAT CHRIS ACEVES Start: 11-15-2018 TOBACCO CESSATION EDUCATION CALISTA ACEVES Start: 11-15-2018 VITAL SIGNS CALISTA STAFFORD UN Start: 11-15-2018 Radiologic exam ches t [...] nial art compl bi study Dulce J Hol Work Phone: Start: 11-15-2018 Culture bacterial quanttative [...] #### [facility] [address] [place] [id number] Start: 11-15-2018 Urnls dip stick/tabl et rgnt [...] CALISTA ACEVES Start: 11-15-2018 INCENTIVE SPIROMETRY RT CLAISTA ACEVES Start: 11-15-2018 PULSE OXIMETRY, CONTINUOUS CALISTA ACEVES Start: 11-15-2018 DISCHARGE PATIENT MARQUEZ Borrero KETAN Start: 11-15-2018 Blood count complete auto&auto difrntl wbc CALISAT KETAN Start: 11-15-2018 Blood count complete automated CALISTA [...] Treatment Date Care Activity Detail Author Start: 01-25-2024 [facility] Start: 01-23-2024 [facility] Start: 12-03-2024 Consultation [facility] Start: 01-23-2024 Hospital admission [facility] Start: 04-06-2023 [facility] Start: 04-04-2023 Administration of prophylactic treatment [facility] Start: 04-02-2023 Referral to office technician [facility] Start: 04-02-2023 Hospital admission [facility] Start: 08-05-2022 CT Abdomen and Pelvi s WO contrast [facility] Start: 08-05-2022 CT of abdomen and pe lvis without contrast CT abdomen pelvis wo con [facility] Start: 11-19-2019 Creatinine monitoring Creatinine mon [place], [place] Start: 11-19-2019 Potassium monitoring Potassium monit [place], [place] Start: 11-05-2019 Creatinine monitoring Creatinine mon [place] Start: 11-05-2019 Potassium monitoring Potassium monit [place] Start: 12-04-2018 End: 12-04-2018 Office Visit 12/04/2018 Office Visit Neurosurgery Lenny Corral MD [address] [facility], [address] [place] [address] [phone] [facility] Start: 11-30-2018 End: 11-30-2018 Office Visit 11/30/2018 Office Visit Neurosurgery Lenny Corral MD [address] [facility], [address] [place] [address] [phone] [facility] Start: 11-23-2018 End: 11-23-2018 Office Visit 11/23/2018 Office Visit Neurosurgery Lenny Corral MD [address] [facility], [address] [place] [address] [phone] [facility] Start: 11-13-2018 Annual Wellness Visi t (AWV) Annual Wellness Visit (AWV) [place] Start: 10-21-2018 Influenza vaccination Flu vaccine (# 1) [place], [place] Start: 2001 DEXA (modify frequen cy per FRAX score) DEXA (modify frequency per FRAX score) [place] Start: 2001 Pneumococcal 65+ yea rs Vaccine (1 of 2 - PCV13) Pneumococcal 65+ years Vaccine (1 of 2 - PCV13) [place] Start: 1986 Shingles Vaccine (1 of 2) Steward gles Vaccine (1 of 2) [place] Start: 11-13-1955 DTaP/Tdap/Td vaccine (1 - Tdap) DTaP/Tdap/Td vaccine (1 - Tdap) [place], [place] Start: 1946 Lipid screen Lipid screen [place], [place] Culture Blood #1 Culture Blood # 1 Microbiology STAT 11/15/2018 4:37 PM EDT [place] Culture Blood #2 Culture Blood # 2 Microbiology STAT 11/15/2018 4:37 PM EDT [place] End: 11-05-2018 EKG 12 Lead EKG 12 Lead ECG Routine One Time for 1 Occurrences starting 11/05/2018 until 11/05/2018 [place] Comment on above: One Time for 1 Occur rences starting 11/05/2018 until 11/05/2018 Incentive spirometry Incentive s pirometry Respiratory Care Routine Every 2hr while awake until discontinued starting 11/15/2018 [place] Comment on above: Every 2hr while awak e until discontinued starting 11/15/2018 Initiate Oxygen Ther apy Protocol Initiate Oxygen Therapy Protocol Respiratory Care Routine Daily until discontinued starting 11/15/2018 [place] Comment on above: Daily until disconti nued starting 11/15/2018 Nonrebreather mask oxygen Nonreb reather mask oxygen Respiratory Care Routine As directed - RT (PRN) until discontinued starting 11/05/2018 [place] Comment on above: As directed - RT (OR N) until discontinued starting 11/05/2018 Patient Education [facility] Work Phone: Patient referral [facility] Work Phone: End: 11-15-2018 Speech and language therapy regime Speech language pathology evaluation LPN CMA Routine One Time for 1 Occurrences starting 11/15/2018 until 11/15/2018 [place] Comment on above: One Time for 1 Occur rences starting 11/15/2018 until 11/15/2018 End: 11-04-2018 Urine Reflex to Culture Urine Reflex to Culture Lab STAT One Time for 1 Occurrences starting 11/04/2018 until 11/04/2018 [facility] ANALI Comment on above: One Time for 1 Occur rences starting 11/04/2018 until 11/04/2018 XR Cervical spine [address] [facility] Immunizations Immunization Date Immunization Notes Care Provider Laxmi romero 12-20-2021 influenza virus vaccine, unspecified formulation MIKAYLA ABDULLAHI [facility] 11-30-2021 influenza virus vaccine, unspecified formulation MD Addy Daniels Work Phone: [facility] 12-21-2020 influenza virus vaccine, unspecified formulation MIKAYLA ABDULLAHI [facility] 01-09-2019 influenza virus vaccine, unspecified formulation MIKAYLA ABDULLAHI [facility] 11-29-2017 influenza virus vaccine, unspecified formulation MIKAYLA ABDULLAHI [facility] 01-02-2017 influenza virus vaccine, unspecified formulation MIKAYLA ABDULLAHI [facility] 12-06-2016 influenza virus vaccine, unspecified formulation MIKAYLA ABDULLAHI [facility] 12-11-2014 influenza virus vaccine, unspecified formulation MIKAYLA ABDULLAHI [facility] NEGATED: Highlighted row has not occurred!05-03-2023 influenza virus vaccine, unspecified formulation Turner DOSS [facility] [place] Payers Date Payer Category Payer Self-pay [id number] 2021 Unknown [id number] 2018 Medicare MEDICARE MEDICAR E PART A AND B xxxxxxxxxxx 2018-Present [phone] [place] [address] xxxxxxxxxxx [id number] 2014 Medicare [id number] 2014 Medicare MEDICARE MEDICAR E PART A AND B xxxxxxxxxx 2014-Present [phone] [place] [address] xxxxxxxxxx [id number] 2014 Unknown [id number] 2014 Unknown 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 [address] xxxxxxxxxxxx 2014-Present [phone] [address] [place] [address] xxxxxxxxxxxx [id number] [id number] 1959 Medicare [id number] 1959 Self-pay [id number] 1959 Unknown [id number] 1936 Unknown [id number] 2..840.1.305987.3.579.2.647 1936 Unknown [id number] 2.840.1.944242.3.579.2.182 1936 Unknown [id number] 2.16840.1.867937.3.579.2.182 1936 Unknown [id number] 2.16840.1.808232.3.579.2.182 1936 Unknown [id number] 2.16840.1.314831.3.579.2.182 1936 Unknown [id number] 2.16840.1.006301.3.579.2.593 1936 Unknown [id number] 2.16.840.1.931119.3.579.2.593 1936 Unknown [id number] 2.16.840.1.773468.3.579.2.593 1936 Unknown [id number] 2.16.840.1.226900.3.579.2.593 1936 Unknown [id number] 2.16.840.1.274573.3.579.2.593 1936 Unknown [id number] 2.16.840.1.932696.3.579.2.593 1936 Unknown [id number] 2.16.840.1.656574.3.579.2.593 1936 Unknown [id number] 2.16840.1.343471.3.579.2.593 1936 Unknown [id number] 2.16.840.1.636023.3.579.2.593 1936 Unknown [id number] 2.16840.1.329120.3.579.2.593 1936 Unknown [id number] 2.16.840.1.661203.3.579.2.727 1936 Unknown [id number] 2.16.840.1.966511.3.579.2.727 1936 Unknown [id number] 2.16.840.1.896489.3.579.2.727 1936 Unknown [id number] 2.16.840.1.919609.3.579.2.727 1936 Unknown [id number] 2.16.840.1.088845.3.579.2.727 Unknown Unknown [id number] 2.16.840.1.705836.3.579.2.531 Unknown [id number] 2.16.840.1.904323.3.579.2.531 Unknown [id number] 2..840.1.507038.3.579.2.531 Unknown [id number] 2..840.1.950085.3.579.2.531 Unknown [id number] 2..840.1.768524.3.579.2.531 Social History Date Type Detail Facility Start: 11-04-2018 End: 01-23-2024 Tobacco smoking status NHIS Never smoker [facility] Start: 11-04-2018 End: 11-19-2018 Alcohol intake Not Currently [facility] Sex Assigned At Not on file [facility] Tobacco smoking status No Smokin g Status Entered [facility] Start: 1935 Sex Assigned At Female F [facility] [facility] Tobacco smoking status Never [facility] Start: 03-02-2024 End: 03-26-2024 Sex Female (finding) [facility] Medical Equipment Procedure Code Equipment Code Equipment Origin al Text Equipment Identifier Dates Graft Canc Chip 30cc [id number] - [id number] Start: 11-13-2018 Graft Canc Chip [id number] 15cc - [id number] Start: 11-13-2018 Sys Fix Reline 0 x Conn 40 50mm 5.5lp Adj [id number] Start: 11-13-2018 Jose Armando-Graft Infuse Kt Med [id number] Start: 11-13-2018 Impl Spine Cage Kamila Crv [id number] 8deg [id number] Start: 11-13-2018 Impl Spine Cage Kamila Crv [id number] 8deg [id number] Start: 11-13-2018 Screw Polyaxial Reline [...] Avilez 04-06-2023 Functional status Patient at Baseline [facility] Work Phone: 12-22-2022 Functional Status N/A [facility] Mental Status Date Assessment Result Facility 04-06-2023 Cognitive function Cognitive Sta tus Patient at Baseline [facility] Work Phone: Clinical Notes 04-04-2022 to 01-24-2024 Note Date & Type Note Facility 01-24-2024 Evaluation note Diagnosis Onset Date Resolution SHAN (acute kidney injury) inactive January 23 10:11am C5 vertebral fracture inactive Dec 2023 10:11am Fall as cause of accidental injury at home as place of occurrence inactive January 23 10:11am Hypertensive urgency inactive Dece mber 2023 10:11am Leukocytosis inactive January 10:11am [facility] Work Phone: 1(465) 991-470012-04-2024 Evaluation note* Diagnosis Onset Date Resolution Status Admit Date SHAN (acute kidney injury) inactive January 24, 2024 10:11am C5 vertebral fracture inactive Jan 10:11am Fall as cause of accidental injury at home as place of occurrence inactive January 23 10:11am Hypertensive urgency inactive Dece mber 2023 10:11am Leukocytosis inactive January 10:11am Cervical spine fracture acute J anuary 2024 11:19am [facility] Work Phone: 1(871) 826-953803-13-2024 NoteChief Complaint consultation for skin lesion HPI Staff [...] for 5 years, gradually increasing in size, noulceration or bleeding, no pain; no pigmentation change; [...] plan excisional biopsy under local anesthesia at [facility], for definitive diagnosis and treatment, informed consent [...] mobilization of the lumbar spine, Appendectomy, Bilateral salpingo- oophorectomy, Cataractextraction and insertion of intraocular lens, Cholecystectomy, Colonoscopy, Fusion of lumbar spine,Tonsillectomy. Medications amLODIPine 10 mg Tab, 10 mg= [...] mg= 1 tab(s), Oral, Daily Potassium Chloride (Urg-Eynz-Zhz 10), 20 mEq, Oral, TID pravastatin 80 [...] 12/06/2016 Recorded influenza virus vaccine, inactivated 12/11/2014 RecordedAshtabula [facility] CenterComment on above:Result Comment: Electronically Signed By: ROMARIO DUMONT, Turner Mckeon\rehan\Date and Time Signed: 05/03/23 20:14 [id number] Discharge summary Author Turner Frank [facility] April 06, 2023 12:22pm Note Date/Time April 06, 2023 12:22pm [facility] [address] [place], [place] [id number] Discharge Summary Signed Patient: Hiram Madrid MR#: [id number] : 1935 Acct:[id number] Age/Sex: 87 / F Adm Date: 4 Loc: Room: [address] [place] [address]: Turner Frank DO Copies to: [...] is a 89-year-old who presented here to [facility] as a transfer on 04/02/2023. She [...] Plan Discharge Plan Patient Disposition: Home Health [facility] Activity: Ambulate as Tolerated [...] <Electronically signed by Turner Frank DO> 04/06/[address] [place] [address] Work Phone: 1(555) 281-738402-14-2024 Progress note Author Turner Frank [facility] April 05, 2023 8:14pm Note Date/Time April 05, 2023 8:14pm [facility] [address] [place] [address] Hospitalist Progress Note Signed Patient: Hiram Madrid MR#: [id number] : 1935 Acct:[id number] Age/Sex: 87 / F Adm Date: 4 Loc: Room: [address] [place] [address] Type: ADM IN Attending Dr: Turner Frank [...] Meq Kcl IV 04/01/24 20:29 0 mls/hr .[id number] [facility] Infusion Levothyroxine Sodium 88 mcg 04/03/23 [...] <Electronically signed by Turner Frank DO> 04/05/232013 [facility] Work Phone: 1(623) 206-776502-14-2024 Progress note Author Gaudencio Romero [facility] April 05, 2023 11:16am Note Date/Time April 05, 2023 11:16am [facility] [address] [place], [place] [id number] Nephrology Progress Note Signed Patient: Hiram Madrid MR#: [id number] : 1935 Acct:[id number] Age/Sex: 87 / F Adm Date: 4 Loc: Room: [address] [place] [address] Type: ADM IN Attending Dr: Turner Frank DO Copies to: ~ Date of Service: 04/05/2023 Subjective Subjective Narrative: Ms. Madrid is an 87-year-old white female was transferred from [facility] on 04/02/23 for hyponatremia. Patient did complain for nausea with no vomiting or diarrhea. She had back pain and other vague symptoms that prompted her to go [facility]. ER lab showed sodium 116, potassium 2.3 and magnesium 1.6. Otherlabs unremarkable including creatinine 0.7 mg/dL. EKG showed normal sinus rhythm at 86/min with right bundle branch block. Patient was given 2 g magnesium in the emergency room and subsequently was transferred to [facility] for further management. On arrival, patient was placed on gentle hydration with normal saline with 20 mEq potassium chloride at rate of75 cc/h. Review of his records showed that the patient has a chronic hyponatremia for almost a year however she never seen office technician. Sodium has been running in the 120s. [...] [facility] [...] Tablet) 10 mg PO DAILY [facility] Stop: 04/02/24 08:59 Last Admin: 04/05/23 08:25 Dose: 10 mg Docusate Sodium (Docusate 100 Mg Capsule) 200 mg PO BID PRN PRN Reason: Constipation Stop: 04/01/24 19:57 Docusate Sodium (Docusate 100 Mg Capsule) 200 mg PO BID [facility] Stop: 04/02/24 08:59 Last Admin: 04/05/23 08:25 Dose: 200 mg Hydralazine HCl (Hydralazine 20 Mg/Ml Vial) 10 mg IV-PUSH Q4H PRN PRN Reason: if SBP > 185 Stop: 04/01/24 19:57 Potassium Chloride/Sodium Chloride (0.9 % Nacl-20 Meq Kcl) 1,000 mls @ 75 mls/hr IV .[id number] [facility] Stop: 04/01/24 20:29 Last Infusion: 04/04/23 08:45 [...] 40 Mg Tablet.Dr) 40 mg PO DAILY.629 [place] Stop: 04/04/24 08:59 Last Admin: 04/05/23 [...] signed by MD Gaudencio Romero> 04/05/23 1116 [facility] Work Phone: 1(358) 411-787402-13-2024 Progress note Author Gaudencio Romero [facility] April 04, 2023 2:06pm Note Date/Time April 04, 2023 2:00pm [facility] [address] [place] [address] Nephrology Progress Note Signed Patient: Hiram Madrid MR#: [id number] : 1935 Acct:[id number] Age/Sex: 87 / F Adm Date: 4 Loc: Room: [address] [place] [address] Type: ADM IN Attending Dr: Turner Frank DO Copies to: ~ Date of Service: 04/04/2023 Subjective Subjective Narrative: Ms. Madrid is an 87-year-old white female was transferred from [facility] on 04/02/23 for hyponatremia. Patient did complain for nausea with no vomiting or diarrhea. She had back pain and other vague symptoms that prompted her to go [facility]. ER lab showed sodium 116, potassium 2.3 and magnesium 1.6. Otherlabs unremarkable including creatinine 0.7 mg/dL. EKG showed normal sinus rhythm at 86/min with right bundle branch block. Patient was given 2 g magnesium in the emergency room and subsequently was transferred to [facility] for further management. On arrival, patient was placed on gentle hydration with normal saline with 20 mEq potassium chloride at rate of75 cc/h. Review of his records showed that the patient has a chronic hyponatremia for almost a year however she never seen office technician. Sodium has been running in the 120s. [...] Kcl) 1,000 mls @ 75 mls/hr IV .[id number] [place] Stop: 04/01/24 20:29 Last Infusion: 04/04/23 08:45 Dose: 0 mls/hr Levothyroxine Sodium (Levothyroxine 88 Mcg Tablet) 88 mcg PO DAILY@0630 [facility] Stop: 04/02/24 06:29 Last Admin: 04/04/23 06:26 Dose: 88 mcg Lorazepam (Lorazepam 2 Mg/Ml Vial) 0.25 mg IV-PUSH Q4H PRN PRN Reason: Anxiety Stop: 10/01/23 11:38 Losartan Potassium (Losartan 50 Mg Tablet) 100 mg PO DAILY [facility] Stop: 04/02/24 08:59 Last Admin: 04/04/23 10:06 Dose: 100 mg Pantoprazole Sodium (Pantoprazole 40 Mg Tablet.Dr) 40 mg PO DAILY.0630 [facility] Stop: 04/04/24 08:59 Pravastatin Sodium (Pravastatin 40 [...] outpatient Documented By: Gaudencio Romero MD 04/04/23 0671 Signed By: <Electronically signed by MD Gaudencio Romero> 04/04/23 1407 [facility] Work Phone: 1(803) 543-626302-13-2024 Progress note Author Turner Frank [facility] April 04, 2023 1:09pm Note Date/Time April 04, 2023 1:09pm [facility] [address] [place] [address] Hospitalist Progress Note Signed Patient: Hiram Madrid MR#: [id number] : 1935 Acct:[id number] Age/Sex: 87 / F Adm Date: 4 Loc: Room: [address] [place] [address] Type: ADM IN Attending Dr: Turner Frank [...] Meq Kcl IV 04/01/24 20:29 0 mls/hr .[id number] [facility] Infusion Levothyroxine Sodium 88 mcg 04/03/23 [...] 40 mg 04/05/23 09:00 Pantoprazole 40 Mg Tablet. PO 04/04/24 08:59 DAILY.0630 [place] Pravastatin Sodium [...] <Electronically signed by Turner Frank DO> 04/04/23 1309 [facility] Work Phone: 1(624) 170-259802-12-2024 Progress note Author Turner Frank [facility] April 03, 2023 7:29pm Note Date/Time April 03, 2023 7:29pm [facility] [address] [place] [address] Hospitalist Progress Note Signed Patient: Hiram Madrid MR#: [id number] : 1935 Acct:[id number] Age/Sex: 87 / F Adm Date: 4 Loc: Room: [address] [place] [address] Type: ADM IN Attending Dr: Turner Frank [...] Meq Kcl IV 04/01/24 20:29 75 mls/hr .[id number] [place] Administration Levothyroxine Sodium 88 mcg 04/03/23 [...] By: <Electronically signed by Turner Frank DO> 04/03/23 286 [facility] Work Phone: 1(875) 323-527102-12-2024 Consult note Author Gaudencio Romero [facility] April 03, 2023 2:07pm Note Date/Time April 03, 2023 2:07pm [facility] [address] [place] [address] Nephrology Consult Note Signed Patient: Hiram Madrid MR#: [id number] : 1935 Acct:[id number] Age/Sex: 87 / F Adm Date: 4 Loc: Room: [address] [place] [address] Type: ADM IN Attending Dr: Turner Frank DO Copies to: MD Gaudencio Pickering MD Michael R. Frings, DO~ Providers Consult Date: 04/03/23 Requesting Provider: Turner Frank DO Primary Care Provider: Addy Daniels MD [facility] Reason for Consult: Hyponatremia, sodium 117 on admission History of Present Illness: Ms. Madrid is an 87-year-old white female was transferred from [facility] on 04/02/23 for hyponatremia. Patient did complain for nausea with no vomiting or diarrhea. She had back pain and other vague symptoms that prompted her to go [facility]. ER lab showed sodium 116, potassium 2.3 and magnesium 1.6. Otherlabs unremarkable including creatinine 0.7 mg/dL. EKG showed normal sinus rhythm at 86/min with right bundle branch block. Patient was given 2 g magnesium in the emergency room and subsequently was transferred to [facility] for further management. On arrival, patient was placed on gentle hydration with normal saline with 20 mEq potassium chloride at rate of75 cc/h. Review of his records showed that the patient has a chronic hyponatremia for almost a year however she never seen office technician. Sodium has been running in the 120s. [...] ascites or edema. Lab at [facility] showed TSH 5.6, urine osmolality 298 and [...] Surgical History (Updated 02/01/23 @ 14:30 by [employer]) History of tonsillectomy Problem List clean-up per [...] Tablet) 10 mg PO DAILY [facility] Stop: 04/02/24 08:59 Last Admin: 04/03/23 08:58 Dose: 10 mg Docusate Sodium (Docusate 100 Mg Capsule) 200 mg PO BID PRN PRN Reason: Constipation Stop: 04/01/24 19:57 Docusate Sodium (Docusate 100 Mg Capsule) 200 mg PO BID [facility] Stop: 04/02/24 08:59 Last Admin: 04/03/23 08:58 Dose: Not Given Hydralazine HCl (Hydralazine 20 Mg/Ml Vial) 10 mg IV-PUSH Q4H PRN PRN Reason: if SBP > 185 Stop: 04/01/24 19:57 Potassium Chloride/Sodium Chloride (0.9 % Nacl-20 Meq Kcl) 1,000 mls @ 75 mls/hr IV .[id number] [facility] Stop: 04/01/24 20:29 Last Admin: 04/02/23 21:56 Dose: 75 mls/hr Levothyroxine Sodium (Levothyroxine 88 Mcg Tablet) 88 mcg PO DAILY@0630 [facility] Stop: 04/02/24 06:29 Last Admin: 04/03/23 05:54 Dose: 88 mcg Losartan Potassium (Losartan 50 Mg Tablet) 100 mg PO DAILY [facility] Stop: 04/02/24 08:59 Last Admin: 04/03/23 08:58 Dose: 100 mg Pravastatin Sodium (Pravastatin 40 Mg Tablet) 80 mg PO DAILY [facility] Stop: 04/02/24 08:59 Last Admin: 04/03/23 08:58 [...] 01:50 04:48 MCHC 35.8 H (32.0-35.0) g/dL [place] # (Auto) 1.1 H (0.0-0.8) x10E3/uL Sodium [...] 04/03/23 Range/Units 08:00 10:38 MCHC (32.0-35.0) g/dL [place] # (Auto) (0.0-0.8) x10E3/uL Sodium 118 L* [...] stay Documented By: Gaudencio Romero MD 04/03/23 6597 Signed By: <Electronically signed by MD Gaudencio Romero> 04/03/23 1408 [facility] Work Phone: 1(549) 366-729002-11-2024 History and physical note Author Natividad Gregory [facility] April 02, 2023 8:22pm Note Date/Time April 02, 2023 8:06pm [facility] [address] [place] [address] Hospitalist H&P Signed Patient: Hiram Madrid MR#: [id number] : 1935 Acct:[id number] Age/Sex: 87 / F Adm Date: 4 Loc: Room: [address] [place] [address] Type: ADM IN Attending Dr: Lucy Lockhart MD Copies to: MD Lucy Pickering MD Ruta Semaskiene, MD~ HPI DATE OF EXAMINATION: 04/02/23 CHIEF COMPLAINT: Hyponatremia HISTORY OF PRESENT ILLNESS: 87 years old female was transferred from [facility] for hyponatremia. Itseems like the patient [...] days ago she has been admitted to [facility] and discharged. Since then she still [...] Surgical History (Updated 02/01/23 @ 14:30 by [employer]) History of tonsillectomy Problem List clean-up per request of Phys. EHR Cmte History of salpingo-oophorectomy Problem List clean-up per request of Phys. EHR Cmte Hx of cholecystectomy Problem List clean-up per request of Phys. EHR Cmte History of appendectomy Problem List clean-up per request of Phys. EHR [facility] Family History (Updated 07/29/14 @ 12:15 by [...] <Electronically signed by Natividad Gregory MD> 04/02/232021 [facility] Work Phone: 1(589) 641-212911-22-2023 NoteNoted 7 beat run of NSVT on 1 week holter monitor, along with SVT, PVCs Recommended to continue coreg 25 mg bid, will place 30 day monitor, and obtain treadmill cardiolite stress test for ischemic evaluation.[facility]11-22-2023 NotePt reports that she has had 5 syncopal episodes since this Summer- some while having a BM, and other episodes while just up and walking.[facility]11-22-2023 NoteWill monitor with routine echocardiogram annually unless pt has concerning symptomsUnTriHealth [facility]11-22-2023 NoteRecommended to continue ASA and pravastatinUnTriHealth Bethesda Butler Hospital11-22-2023 Note Hypertension is stable Reviewed B/P log and typically in the mornings her b/p with well controlled 120's/70-80, and in the evenings can be up to 140/80 Continue all meds and will add toprolUnTriHealth Bethesda Butler Hospital 01-11-2023 NoteContinue pravastatinUnTriHealth Bethesda Butler Hospital11-22-2023 NoteWill monitor with routine echocardiogram annually unless pt has concerning symptomsUnTriHealth [facility]11-22-2023 NoteWill monitor with routine echocardiogram annually unless pt has concerning symptomsUnTriHealth [facility]hes[facility]11-22-2023 NotePatient here for 3 mo follow up valve disorder and carotid artery stenosis. She has had a few episodes of syncope since last visit. She recently wore Holter monitor. Says Dr. Daniels wants to add metoprolol but she does not want to add another medication. Review of Systems Cardiovascular: Positive for syncope. Hematologic/Lymphatic: Bruises/bleeds easily. All other systems reviewed and are negative.[facility] 01-11-2023 NoteUTP CARDIOLOGY PROGRESS NOTE HPI: [...] called and was evaluated in ED at [facility]. Admits she has had a couple syncopal episodes in the bathroom while having a BM- last one was at [employer]. States she also has had a couple while just up and walking- normal Day to Day activity. Daughter states that pt is usually out for about 1 minute. Of note patient was direct admitted to the [facility] end of August for electrolyte imbalances low sodium, low potassium, and acute anemia. She was evaluated at [facility] in October for ABD pain/ syncope, and [...] The patient states she was shopping in [employer] when she felt the need to have [...] approximately 5 years ago at [facility]. HPI - Altered Mental Status General Chief [...] tablet 3 levothyroxine (Syn (more content not included)...[facility]11-02-2023 Hospital Discharge instructions Patient Education 12/22/2022 [...] transplant. Follow these instructions at home: Take zmyr-tqb-ldfixbu and prescription medicines only as told by [...] provider. Document Revised: 05/26/2020 Document Reviewed: 05/26/2020 [employer] Patient Education 2022 [employer]. Follow Up Care 09/06/2022 13:10:43 With:ABDULLAHI NOONAN, MIKAYLA Pereira, URL Address: [address] [place] [address] [facility] [place] [address] [phone] When: Unknown Comments:6 mos w/ renal fxn (per PCP) [facility] Natalya 09-05-2023 NotePt message/ call that she [...] appointment Lesly Alaniz NP Division of Cardiology, [facility]- [phone] Pager- [phone] Email- [email or web address]08-25-2023 NoteStable and non pitting currentlyUnTriHealth [facility] 10-14-2022 NoteCurrently stable Pt to call for any recurrent syncope or concernsUnTriHealth [facility]08-25-2023 NoteMild on recent echo No concerning symptomsUnTriHealth [facility]08-25-2023 NoteContinue ASA and statinUnTriHealth [facility]hes[facility] Butler Hospital08-25-2023 NoteHypertension is uncontrolled 160/75- admits this is where her b/p is at home Increase coreg to 25 mg bid, continue losartan 100 mg, hydrochlorothiazide 25 mg, and amlodipine 10 mgUnTriHealth [facility]hes[facility] Hospital08-25-2023 Note Continue pravastatinUnTriHealth Bethesda Butler Hospital08-25-2023 NoteNo concerning symptoms Will continue to monitor with echocardiogramUnTriHealth [facility] 10-14-2022 NoteNo concerning symptoms Will continue to monitor with echocardiogramUnTriHealth [facility] 10-14-2022 NotePatient here c/o LE edema. Says today they aren't as bad, but she states they're hard and sometimes painful. She has not had lab work since [facility] stay in July 2022. She denies chest pain, lightheadedness, and palpitations. Review of Systems Cardiovascular: Positive for dyspnea on exertion and leg swelling. Hematologic/Lymphatic: Bruises/bleeds easily. All other systems reviewed and are negative.[facility] 10-14-2022 NoteUTP CARDIOLOGY PROGRESS NOTE HPI: [...] note patient was direct admitted to the [facility] end of August for electrolyte imbalances [...] Stable and non pitting currently RTC 3-6 monthsOhio[facility]02-13-[facility] Note Chief [...] p.o. twice dominic (more content not included)... [facility] CenterEvaluation + Plan note No data available for this section [facility] Future Appointments Appointment Date:06/29/2023 09:30:00 AM Scheduled Provider:MIKAYLA WEISS PA-C Location:[facility] Appointment Type:URO Office Visit [facility] Evaluation noteNo assessment information available [facility] Work Phone: Evaluation note* Diagnosis Onset Date Resolution Status HTN (hypertension) acute Hyponatremia acute [facility] Work Phone: Hospital Discharge instructions No data available for this section [facility] Additional Instructions Take Naprosyn [...] or chills or intractable nausea vomiting.[facility] Work Phone: Progress note No data available for this section [facility] Summary Purpose Family History Relationship Condition Age at Onset Recorded Date/T cullen father Unknown Not Specified Unknown Relationship Condition Age at Onset Recorded Date/T cullen father Unknown mother Unknown Advance Directives Documents on File Type Date Recorded Patient Emr Analyst Expl anation Advance Directives and Living Will Power of Sole Filler Latest Code Status on File Code Status Date Activated Date Inactivated Comments Full Code 11/05/2018 6:34 PM Full Code 11/04/2018 5:08 PM 11/05/2018 6:34 PM Documents on File Type Date Recorded Patient Emr Analyst Expl anation Advance Directives and Livin g Will Advance Directives and Livin g Will 11/06/2018 1:08 AM AD info sheets Power of Sole Filler Latest Code Status on File Code Status [...] sent through Care Everywhere. * Back Pain (Kiswahili) documented in this encounter* Discharge Instr - [...] at most local grocery stores, pharmacies, and [employer]. ? If you have any questions about [...] Contact Information Primary Emergency Contact: Andrea Madrid [facility] Mobile Relation: Spouse Secondary Emergency Contact: Liliya Townsend Mobile Relation: Child Returns Clerk needed? No Past Surgical History: Past Surgical History: Procedure Laterality Date APPENDECTOMY BACK SURGERY CHOLECYSTECTOMY LUMBAR FUSION N/A 11/13/2018 PLIF L 3-4-5 DECOMPRESSION L3, L4 performed by Lenny Corral MD at [facility] OR [facility] Immunization History: There is no immunization history [...] Assisted Dressing Independent Toileting Independent Feeding Independent Humid System Operator Independent Med Delivery whole Wound Care [...] Video (Video Swallowing Test): {Done Not Done Date:[id number]} Treatments at the Time of Hospital Discharge: Respiratory Treatments: Oxygen Therapy: is not on home oxygen therapy. Ventilator: - No ventilator support Rehab Therapies: Physical Therapy and Occupational Therapy Weight Bearing Status/Restrictions: No weight bearing restirctions Other Medical Equipment (for information only, NOT a DME order): walker Other Treatments: Patient's personal belongings (please select all that are sent with patient): {[facility] DME Belongings:[id number]} RN SIGNATURE: MANAGEMENT/SOCIAL WORK SECTION Inpatient Status Date: Patient was admitted to Inpatient Acute Rehab 11/15/18 Readmission Risk Assessment Score: Readmission Risk Risk of Unplanned Readmission: 12 Discharging to Facility/ Agency Name: [facility]an Sosa Address: Fax: Dialysis Facility (if applicable) Name: Address: Dialysis Schedule: Phone: Fax: First Beater/Portable Trackman signature: ICIAN SECTION Prognosis: Good Condition at [...] shift. 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 Leisure & Hobbies: Cooking, reading, needlepoint Additional Comments: 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 [] Pt NOT interested in having music therapy again. ALEXANDRA Ramos 11/20/2018 * Roselyn Schroeder OTA - 11/20/2018 9:59 AM EDT Occupational Therapy Facility/Department: [facility] Daily Treatment Note NAME: Hiram Madrid [...] 11/20/2018 9:55 AM EDT Occupational Therapy Facility/Department: [facility] Daily Treatment Note NAME: Hiram Madrid [...] Shower Transfers: Supervision Cognition Overall Cognitive Status: [facility] Cognition Comment: 6 7 7 6 [...] device (slide rail) Walk: 6 - Modified Kendall Walks at least 150 feet with an ambulatory device, orthosis or prosthesis OR requires extra amount of time OR there is concern for safety Distance Walked: 200' Wheel Chair: 0 - Activity Not Assessed/Does Not Occur Stairs: 6 - Modified Kendall Safely goes up and down at least [...] Dr. Ellis Holguin D.O., PM&R Attending [address] [place] [address] * Khanh White LPN - 11/19/2018 6:00 [...] 11/19/2018 2:05 PM EDT Occupational Therapy Facility/Department: [facility] Daily Treatment Note NAME: Hiram Madrid [...] EDT Physical Therapy Rehab Treatment Note Facility/Department: [facility] Room: R238/R238-01 NAME: Hiram Madrid : [...] Unit/Bed: R238/R238-01 Date of : 1935 Acct: [id number] Admitting Diagnosis: Impaired mobility [Z74.09] Spinal stenosis [...] and tentative discharge home tomorrow. Follows with qc manager in [place]. 11/18/18: called by staff midwife/apprenticeship director regarding tachycardia. Pt was unaware of tachycardia. [...] to have + orthostatics. Denies hx of IN, CHF or arrhythmia. Follows with a qc manager from [place] for carotid artery disease and cardiac murmur. [...] to DC home and F/U with regular qc manager as outpatient Attending Supervising Physician's Attestation Statement The patient is a 83 y.o. female. I have performed a history and physical examination of the patient. I discussed the case with the physician assistant designer. I reviewed the patient's Past Medical History, [...] EDT Physical Therapy Rehab Treatment Note Facility/Department: [facility] Room: R238/R238-01 NAME: Hiram Madrid : [...] x10 ASSESSMENT/COMMENTS: Pt achieved a 42 on PIZNAO this session. PLAN OF CARE/Safety: Safety Devices Type of devices: All fall risk precautions in place Therapy Time: Individual Time In 1030 Time Out 1100 Minutes 30 Minutes:30 Transfer/Bed mobility trainin Gait trainin Neuro re education:10 Therapeutic ex:15 Padmini De La Rosa PTA, 11/19/18 at 10:57 AM * Mikayla Lindsey, CLINICAL APPEALS REVIEWER - 11/19/2018 10:06 AM EDT Physical Therapy Rehab Treatment Note Facility/Department: [facility] Room: [place] [address] NAME: Hiram Madrid : 1935 (83 y.o.) [...] Neuromuscular Education Neuromuscular Comments: Pizano Initiated: other CLINICAL APPEALS REVIEWER finished it: pt scored a 42/56. Bed [...] education: 10 Therapeutic ex: 0 Mikayla Lindsey PTA, 11/19/18 at 11:59 AM * Khanh White LPN - 11/19/2018 9:15 AM EDT Assessment completed. Medicated with Percocet for 10/10 pain in lower back and left leg. Removed old drsg from lower back. Noted a scant amount of serosanguinous drainage. Orange intact. Sutures at lower part of incision intact. Cleanse incision with NS. Applied Neosporin oint to incision. Applied DSD. No back brace per Dr Corral. Call light in reach. Will continue to monitor. * Lenny Corral MD - 11/19/2018 8:23 AM EDT Patient: Hiram Madrid [facility] : 1935 Acct: [id number] Admitting Diagnosis: Impaired mobility [Z74.09] Spinal stenosis of lumbosacral region [M48.07] Admit Date: 11/15/2018 Hospital Day: 4 Current Medications: Scheduled Meds: cephALEXin 500 mg Oral 3 times per day aggjsigb-zqmeakvgsy-auwwmyaxu Topical BID enoxaparin 30 mg Subcutaneous Daily [...] woman from homewith spouse who presents to [facility] with the above deficits which impact [...] ms QTc Calculation (Bazett) 463 ms P [place] 58 degrees R [place] -11 degrees T [place] 5 degrees Xr Chest Standard (2 Vw) [...] from Dr. Ellis Holguin D.O., PM&R Attending [phone] [facility] * Rachael Graf LPN - [...] and no guarding. Musculoskeletal: Back: Urine Culture [[id number]] Collected: 11/15/18 190 Order Status: Completed Specimen: Urine, clean catch Updated: 11/17/18727 Urine Culture, Routine No growth 24 hours Narrative: ORDERED BY: ADDY COKER SOURCE: Urine Clean Catch COLLECTED: 11/15/18 19:05 ANTIBIOTICS AT DI.: RECEIVED : 11/15/18 19:05 Culture Blood #2 [[id number]] Collected: 11/15/187 Order Status: Completed Specimen: Blood Updated: 11/16/18 1815 Culture, Blood 2 No Growth to date. Any change in status will be called. Narrative: ORDERED BY: ADDY COKER SOURCE: Blood COLLECTED: 11/15/18 16:37 ANTIBIOTICS AT DI.: RECEIVED : 11/15/18 16:42 Culture Blood #1 [[id number]] Collected: 11/15/181636 Order Status: Completed Specimen: Blood Updated: 11/16/18 [...] Unit/Bed: 38/R238-01 Date of : 1935 Acct: [id number] Admitting Diagnosis: Impaired mobility [Z74.09] Spinal stenosis [...] L4 performed by Lenny Corral MD at [facility] Right History reviewed. No pertinent family history. [...] on phone: None Gets together: None Attends hindu service: None Active member of club or organization: None Attends meetings of clubs or organizations: None Relationship status: None Intimate partner violence: Fear of current or ex partner: None Emotionally abused: None Physically abused: None Forced sexual activity: None Other Topics Concern None Social History Narrative None Subjective/HPI: called by staff midwife/apprenticeship director regarding tachycardia. Pt was unaware of tachycardia. [...] woman from homewith spouse who presents to [facility] with the above deficits which impact [...] up labs. Blanca Holguin D.O., PM&R Attending [address] [place] [address] [place] * Dana Craig RN - 11/17/2018 5:45 PM EDT Monitor room called, said pt had about 18 sec run of svt up to 218; notified cardio. * Faye Summers PTA - 11/17/2018 4:07 PM EDT Physical Therapy Rehab Treatment Note Facility/Department: [facility] Room: [place] [address] NAME: Hiram Madrid : 1935 (83 y.o.) [...] complete previously scheduled minutes from AM. Faye Morillokizzy, CLINICAL APPEALS REVIEWER, 11/17/18 at 4:07 PM * Rachael Graf [...] 11/17/2018 2:51 PM EDT Occupational Therapy Facility/Department: [facility] Daily Treatment Note NAME: Hiram Madrid [...] EDT Physical Therapy Rehab Treatment Note Facility/Department: [facility] Room: [place] [address] NAME: Hiram Madrid : 1935 (83 y.o.) [...] EDT Physical Therapy Rehab Treatment Note Facility/Department: [facility] NAME: Hiram [...] in place Therapy Time: Individual Time In 854 Time Out 0950 Minutes 55 Minutes:55 Transfer/Bed mobility training: Gait trainin Neuro re education:15 Therapeutic ex:20 Angi Ibanez, 11/17/18 at 12:20 PM * Roselyn Schroeder OTA - 11/17/2018 8:43 AM EDT Occupational Therapy Facility/Department: [facility] Daily Treatment Note NAME: Hiram Madrid [...] at below status. ADL Equipment Provided: Sock aid;Tassel Maker Grooming: Independent UE Bathing: Setup LE Bathing: [...] woman from homewith spouse who presents to [facility] with the above deficits which impact [...] consult,check dopplers Blanca Holguin D.O., PM&R Attending [address] [place] [address] * Jessica Irvin, URIR/Lloyd - 11/16/2018 4:14 PM EDT Occupational Therapy Facility/Department: [facility] Daily Treatment Note NAME: Hiram Madrid : 1935 Date of Service: 11/16/2018 Discharge Recommendations: Continue to assess pending progress OT Equipment Recommendations Other: Continue to assess Assessment Performance deficits / Impairments: Decreased functional mobility ;Decreased ADL status;Decreased strength;Decreased balance;Decreased endurance;Decreased high- level IADLs Assessment: Pt. is an 83 year old woman from home with spouse who presents to [facility] with the above deficits which impact [...] Pain: Yes Objective The patient completed the [facility] Mental Status (UMS) Examination [...] EDT Patient: Hiram Madrid [facility] of : 1935 Acct: [id number] Admitting Diagnosis: Impaired mobility [Z74.09] Spinal stenosis of lumbosacral region [M48.07] Admit Date: 11/15/2018 Hospital Day: 1 Current Medications: Scheduled Meds: [START ON 11/17/2018] enoxaparin 40 mg Subcutaneous Daily dlpvahdv-spaebkigha-nuedtcnhc Topical BID docusate sodium 100 mg Oral [...] Lovenox. Dressing changed. Bacitracin ointment. * Dulce Stevens DO - 11/16/2018 3:40 PM EDT CC: [...] to have + orthostatics. Denies hx of IN, CHF or arrhythmia. Follows with a qc manager from [place] for carotid artery disease and cardiac murmur. [...] L4 performed by Lenny Corral MD at [facility] Right [...] on phone: None Gets together: None Attends hindu service: None Active member of club or [...] EDT Physical Therapy Rehab Treatment Note Facility/Department: [facility] Room: [place] [address] NAME: Hiram Madrid : 1935 (83 y.o.) [...] education: 0 Therapeutic ex: 23 Mikayla Lindsey, CLINICAL APPEALS REVIEWER, 11/16/18 at 3:57 PM * Rhiannon Blank LPN CMA - 11/16/2018 11:21 AM EDT Speech Language [...] from home with spouse who presents to [facility] with the above deficits which impact [...] to increasing pain) Transfer Assistance: Independent Active Polysomnographer: Yes Mode of Transportation: Car Type of [...] And Coordinated: Yes Cognition Overall Cognitive Status: [facility] Cognition Comment: Comprehension: 7, Expression: 7, Social Interaction: 7, Problem-Solvin, Memory: 6 Perception Overall Perceptual Status: [facility] Sensation Overall Sensation Status: WFL ROM [...] to supervising OTR/L STIANO Lee/Lloyd * Jena Vega PTA - 11/16/2018 10:35 AM EDT Physical Therapy Rehab Treatment Note Facility/Department: [facility] Room: R238/R238-01 NAME: Hiram Madrid : [...] 11/16/18 at 11:10 AM * Jessenia Gordon, SHOP HAND - 11/16/2018 9:35 AM EDT [facility] - Acute Rehabilitation RECREATIONAL THERAPY Initial Evaluation Date: 11/16/2018 [...] hearing in left ear) Patient seen at: [phone] Recreation Therapist received referral, chart reviewed and [...] services, its supported services and groups include: [facility], Pet Therapy, Leisure [...] PT - 11/16/2018 8:20 AM EDT Facility/Department: [facility] Rehabilitation Initial Assessment: Physical Therapy Room: [...] L4 performed by Lenny Corral MD at [facility] Right Chart Reviewed: Yes Patient assessed for [...] to increasing pain) Transfer Assistance: Independent Active Polysomnographer: Yes Additional Comments: 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, [...] to initiate log roll care home goals care home goal 1: pt to be indep with bed mobility termite control representative goal 2: pt to be indep with bed transfers care home goal 3: pt to ft with supervision termite control representative goal 4: pt to navigate 4 steps with SBA termite control representative goal 5: 30/56 for Pizano balance testing ELOS: Plan weeks: 2 Therapy Time: Individual Time In 1000 Time Out 1030 Minutes 30 Lakisha Trevino, PT, 11/16/18 at 12:00 PM * Marybel Ackerman, CONTENT PRODUCER - 11/15/2018 11:29 PM EDT Tashia Stark [...] puffs by inhalation with spacer [] Ipratropium [place] 0.02% unit dose by aerosol Ipratropium [place] MDI 2 puffs by inhalation with spacer [] Duoneb (Ipratropium + Albuterol) unit dose by aerosol Ipratropium MDI + Albuterol MDI 2 puffs byinhalation w/spacer MDI to Aerosol [] Albuterol Sulfate MDI Albuterol Sulfate 0.083% unit dose by aerosol [] Levalbuterol MDI 2 puffs by inhalation Levalbuterol 1.25 mg unit dose by aerosol [] Ipratropium [place] MDI by inhalation Ipratropium [place] 0.02% unit dose by aerosol [] Combivent (Ipratropium + Albuterol) MDI by inhalation Duoneb (Ipratropium + Albuterol) unit doseby aerosol Treatment Assessment [Frequency/Schedule]: Change frequency to: ACCUNEB Q4 PRN per Protocol, P&T, [facility] Points 0 1 2 3 4 [...] of lumbosacral region Impaired mobility Vasovagal syncope [facility] [address] [id number] Chief Complaint and Reason for Visit Chief Complaint SYNCOPE Chief Complaint hyponatremia hyponatremia hyponatremia Reason for Visit HTN (hypertension) Hyponatremia Chief Complaint hyponatremia hyponatremia hyponatremia high bp Reason for Visit HTN (hypertension) Hyponatremia Chief Complaint hyponatremia hyponatremia hyponatremia high bp Unknown Reason for Visit HTN (hypertension) Hyponatremia Chief Complaint Admit Date C5 fracture January 24, 2024 7 :22am C5 fracture January 24, 2024 1 0:11am [id number] March 01, 2024 1 0:46am Reason for Visit Admit Date SHAN (acute kidney injury) January 24, 2024 10:11am C5 vertebral fracture January 24, 2024 10:11am Fall as cause of accidental injury at home as place of occurrence January 24, 2024 10:11am Hypertensive urgency January 24, 2024 10:11am Leukocytosis January 24, 2024 1 0:11am Chief Complaint Admit Date C5 fracture January 24, 2024 7 :22am C5 fracture January 24, 2024 1 0:11am [id number] March 01, 2024 1 0:46am c5 fracture f/u w/x-ray March 06 11:19am Reason for Visit Admit Date SHAN (acute kidney injury) January 24, 2024 10:11am C5 vertebral fracture January 24, 2024 10:11am Fall as cause of accidental injury at home as place of occurrence January 24, 2024 10:11am Hypertensive urgency January 24, 2024 10:11am Leukocytosis January 24, 2024 1 0:11am Cervical spine fracture March 06 11:19am Additional Source Comments INFORMATION SOURCE (unrecogn ized section and content) DATE CREATED AUTHOR 04/20/2018 [facility] DATE CREATED AUTHOR AUTHOR'S ORGANIZ ATION 11/24/2018 [facility] DATE CREATED AUTHOR AUTHOR'S ORGANIZ ATION 06/14/2022 [facility] DATE CREATED AUTHOR AUTHOR'S ORGANIZ ATION 01/13/2023 [facility] DATE CREATED AUTHOR AUTHOR'S ORGANIZ ATION 09/28/2023 [facility] DATE CREATED AUTHOR AUTHOR'S ORGANIZ ATION 03/11/2024 [facility] Reason for Visit (unrecogniz ed section and content) Reason Comments Back Pain Left low back pain r adiates down left leg. Pain flared up last monday Status Reason Specialty Diagnoses / Procedures Referre d By Contact Referred To Contact Diagnoses Intractable back pain Lenny Corral MD [address] [facility], [address] [place] [id number] [facility] Patient Care team informatio n (unrecognized section and content) Team Status: Active Member Role Status Dates Addy Daniels MD Primary Care Provider Active Team Status: Active Member Role Status Dates Addy Daniels MD Primary Care Provider Active Start: January 24, 2024 Son Dean MD Admit Provider Active S tart: January 24, 2024 STEVE Ruiz Other Provider Active Sta rt: January 24, 2024 Kristofer Aceves MD Other Provider Active Start: D ec2023 Soo Carvalho APRN Other Provider Active St art: January 24, 2024 Lg Fu DO Attending Provider, Other Provider Active Start: January 24, 2024 Niki Owusu MD Other Provider Active Sta rt: January 24, 2024 Team Status: Inactive Member Role Status Dates Addy Daniels MD Primary Care Provider Active Start: March 01, 2024 End: March 01, 2024 Niki Owusu MD Attending Provider Active Start: March 01, 2024 End: March 01, 2024 Team Status: Inactive Member Role Status Dates Addy Daniels MD Primary Care Provider Active Camacho Cooper DO Emergency Provider Active Team Status: Inactive Member Role Status Dates Addy Daniels MD Primary Care Provider Active Start: April 02, 2023 End: April 06, 2023 Lucy Lockhart MD Admit Provider Active Start: April 02, 2023 End: April 06, 2023 Gaudencio Romero MD Other Provider Active Start: ebruary 2023 End: April 06, 2023 KAMILA Escobar Other Provider Active Start: April 02, 2023 End: April 06, 2023 Fiona Magana MD Other Provider Active Start: Fe bruary 2023 End: April 06, 2023 Cachorro Real MD Other Provider Active Star t: April 02, 2023 End: April 06, 2023 Warner Sood MD Other Provider Active Start: April 02, 2023 End: April 06, 2023 Boni Choi MD Other Provider Active Start: ebruary 2023 End: April 06, 2023 Turner Frank [...] Other Provider Active Start: April 03, 2023 Foina Magana MD Other Provider Active Start: Fe [...] 2023 Team Status: Active Member Role Status Ruddy Daniels MD Primary Care Provide r, Attending Provider Active Start: April 12, 2023 Team Status: Inactive Member Role Status Dates Turner Doss MD [facility] Attending Provider Active Start: June 21, 2023 End: June 21, 2023 Team Status: Inactive Member Role Status Dates Addy Daniels MD Primary Care Provider Active Start: March 06, 2024 End: March 06, 2024 Lg Fu DO Attending Provider Active S tart: March 06, 2024 End: March 06, 2024 Team Status: Inactive Member Role Status Ruddy Daniels MD Primary Care Provide r, Attending Provider Active Start: March 25, 2024 End: March 25, 2024 Goals (unrecognized section and content) Goals may [...] BE BASED ON THE PRIMARY CLINICAL RECORDS. [facility]. provides no warranty or guarantee of the accuracy or completeness of information in this document.
[2024-03-26 11:42] LABS: Anion Gap 11.8; BUN Creatinine Ratio 9.9; Calcium 8.1 mg/dL (8.5-10.1); Carbon Dioxide 28.4 mmol/L (21.0-32.0); Chloride 94 mmol/L (98-107); Estimated GFR (African America >60 (>=60 mL/min/1.73m^2); Estimated GFR (Non-African Ame 52 (>=60 mL/min/1.73m^2); Glucose 128 mg/dL (74-106); Potassium 3.2 mmol/L (3.5-5.1); Sodium 131 mmol/L (136-145); Troponin I High Sensitivity 17.2 pg/mL (4.0-51.3)
[2024-03-26 11:46] LABS: Influenza Virus A Antigen Positive; Influenza Virus B Antigen Negative; Internal Control Within Normal Limits; SARS-CoV-2 Ag NEGATIVE (NEGATIVE)
[2024-03-26 12:22] VITALS: O2SAT 94
== END 2024-03-26 12:24 | disposition home or self-care (01) ==
PROVIDERS: Emergency Provider Emergency Medicine; PCP Family Medicine
DX: J10.1 Influenza due to other identified influenza virus with other respiratory manifestations (principal); Z90.49 Acquired absence of other specified parts of digestive tract
CPT/HCPCS: 36415; 71045; 80048; 84484; 85025; 87804; 87811; 93005; 96374; 99285; J2405

== ENCOUNTER 2024-10-11 11:47 | Outpatient (OUT) | payer MEDICARE, OTHER, SELFPAY ==
--- OUTSIDE RECORDS SUMMARY | 2024-08-07 05:09 | XMS_ITS ---
Author Organization [facility] in [place] Address [address] [place] [address] Care Team Providers Care Elementary Esl Teacher Name Role Phone Darien Clemente Primary Care Provider [phone] REASON FOR VISIT Celexa refill Medications Medication SIG (Take, Route, Frequency, Duration) Notes Start Date End Date Status CeleXA 20 MG 1 tablet Orally Once a day for 90 days 04/13/2023 Active Encounters Encounter Location Date Provider Diagnosis [facility] [address] [place] [address] 08/07/2024 Darien Clemente Hyponatremia E87.1 Assessments Encounter Date Diagnosis (ICD Code) Assessment Notes Treatment Notes Treatment Clinical Notes Section Notes 08/07/2024 Hyponatremia (ICD-10 - E87.1) Plan Of Treatment Medication Medication Name Sig Start Date Stop Date Notes CeleXA 20 MG 1 tablet Orally Once a day for 90 days 2023 Progress Notes * Rebeca MADRIDDOB: [birth year] (88 yo F)Acc No.[id number]:08/07/2024 Patient: Renato Rebeca WILLETT :1935 A ge:88 Y S ex:Female Address:[address] [place] [address] * Refills Refill CeleXA Tablet, 20 MG, Orally, 90 Tablet, 1 tablet, Once a day, 90 days, Refills=3 * true * Date: Generated for Printi ng/Faxing/eTransmitting on: 0 10/11/2024 11:51 AM EDT
--- OUTSIDE RECORDS SUMMARY | 2024-09-17 07:15 | XMS_ITS ---
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 Name Role Phone Darien Clemente Primary Care Provider [phone] Allergies Allergen (clinical drug ingredient) Drug/Non Drug Allergy documented on EMR Reaction Allergy Type Onset Date Status atorvastatin Atorvastatin Blisters Drug Allergy A ctive prednisone Prednisone Blisters Drug Allergy Activ e Results Component Value Reference Range Notes UA (Urinalysis, Dipstix only - w/o micro) Reviewed date:09/17/2024 11:23:57 AM Interpretation: Performing Lab: Notes/Report: COLOR yellow Yellow - Dorie - CLARITY clear Clear - Clear GLUCOSE - 0 - 133 MG/DL ALBUMIN - NEG - NEG MG/DL BILIRUBIN - NEG - NEG MG/DL SPECIFIC GRAVITY 1.01 1.001 - 1.035 KETONES 0.5 NEG - NEG MG/DL BLOOD, UR - PH, UR 5 5 - 9 UROBILNOGEN 0.2 0.2 - 1 MG/DL NITRITE - NEG - NEG ESTERASE (NIKI) ++ NEG - NEG MG/DL REASON FOR VISIT Anxiety, Blood in Stool, Diarrhea Medications Medication SIG (Take, Route, Frequency, Duration) Notes Start Date End Date Status Magnesium Oxide 400 MG 1 tablet as neede d Orally TID for 90 days Active Pantoprazole Sodium 40 MG 1 tablet Orall y Once a day for 90 days Active Pravastatin Sodium 80 MG Take 1 tablet b y mouth once daily for 90 days Active Norvasc 5 MG 1 tablet Orally Once a day for 90 days 06/27/2022 Active Ondansetron 4 MG 1 tablet on the tong ue and allow to dissolve Orally QID PRN for 10 days 02/09/2024 Active Irbesartan 300 MG 1 tablet Orally Once a day for 90 days Active Klor-Con M20 20 MEQ TAKE 1 TABLET BY ISAC TH THREE TIMES DAILY for 90 days Active Levothyroxine Sodium 88 MCG TAKE 1 TABLE T BY MOUTH ONCE DAILY IN THE MORNING ON AN EMPTY STOMACH for 90 days Active Hyoscyamine Sulfate 0.125 MG 1-2 tabs SL SL every 4 hrs PRN abd pain 09/17/2024 Active Tamiflu 75 MG 1 capsule Orally Twi ce a day for 5 day(s) 03/26/2024 Active CeleXA 40 MG 1 tablet Orally Once a day for 90 days 04/13/2023 Active Carvedilol 25 MG 1 tablet with food Orally Twice a day for 90 days 04/17/2023 Active hydrOXYzine HCl 25 MG 1 tablet as needed Orally qid for 10 days 09/17/2024 Active Ciprofloxacin HCl 500 MG 1 tablet Orally every 12 hrs for 10 days 09/17/2024 Active Social History Tobacco Use: Social History Observation Description Date Details (start date - stop date) Never Smoker NA - NA Tobacco Use/Smoking Question Answer Notes Patient is a nonsmoker AUDIT-C (Standard) Question Answer Notes Did you have a drink containing alcohol in the p ast year? No Points 0 Interpretation Negative Vital Signs Weight 147 lbs 09/17/2024 Height 61 in 09/17/2024 Blood pressure systolic 146 mm Hg 09/18/19 25 Blood pressure diastolic 76 mm Hg 025 BMI 27.77 kg/m2 09/17/2024 Encounters Encounter Location Date Provider Diagnosis [address] [address] 09/17/2024 Darien Clemente Other fatigue R53.83 ; Acute UTI N39.0 and Anxiety F41.9 Assessments Encounter Date Diagnosis (ICD Code) Assessment Notes Treatment Notes Treatment Clinical Notes Section Notes 09/17/2024 Other fatigue (ICD-10 - R53.83) 09/17/2024 Acute UTI (ICD-10 - N39.0) 09/17/2024 Anxiety (ICD-10 - F41.9) Plan Of Treatment Medication Medication Name Sig Start Date Stop Date Notes Hyoscyamine Sulfate 0.125 MG 1-2 tabs SL SL every 4 hrs PRN abd pain 09/17/2024 levoFLOXacin 500 MG 1 tablet Orally Once a day 02/09/2024 Pyridium 200 MG 1 tablet after meals Orally Three times a day 02/06/2024 CeleXA 40 MG 1 tablet Orally Once a day for 90 days 04/13/2023 hydrOXYzine HCl 25 MG 1 tablet as needed Orally qid for 10 days 09/17/2024 Ciprofloxacin HCl 500 MG 1 tablet Orally every 12 hrs for 10 days 09/17/2024 Progress Notes * Rebeca MADRIDDOB: [birth year] (88 yo F)Acc No.[id number]:09/17/2024 Progress Note Patient: Rebeca CLINTON Provider: Hung Clemente ([facility])MD :1935 A ge:88 Y S ex:Female Date:09/17/2024 Address:[address] [place] [address] [place] [address] Check In:11:07 AM ESTCheck O ut:11:39 AM EST Subjective: * Chief Complaints: * A nxiety, Blood in Stool, Diarrhea * HPI: G eneral: Diarrhea wth streaking blood - bright red - diarrhea - been going on for awhile - nerves seems to make it worse - some better the morning but then rest of the say is loose. * ROS: E ENT: hearing changes d enies. v isual changes d enies.?non-healing mouth sores d enies. s wollen glands or neck lumps d enies. h oarseness d enies. s ore throat d enies. d ifficulty swallowing d enies. n ose bleeds d enies. n nata congestion d enies. e ar ache d enies. e ar discharge?denies. r inging in ears d enies. l ight sensitivity d enies. e ye pain d enies. b lurring d enies. e ye irritation d enies. d ouble vision d enies.?vision loss d enies. G eneral/Constitutional: Sweats: D enies. F atigue d enies. S leep problems d enies. A norexia d enies. M alaise d enies. W eight loss d enies.?Fatigue or Weakness d enies. F ever or Chills d enies. C ardiovascular: Shortness of Breath w/lying flat d enies. L ightheadedness/dizziness d enies. C hest tightness/ heavy pressure d enies. S welling of legs, ankles, or feet d enies. W aking up with shortness of breath d enies. C hest pain denies. P alpitations d enies. W eight gain d enies. R espiratory: Chronic or frequent cough d enies. C oughing up blood?denies. D ifficulty breathing d enies. P roductive cough d enies. S noring?denies. S hortness of breath that awakens from sleep (PND) d enies. C hest pain d enies. S putum production d enies. W heezing d enies. M usculoskeletal: Joint pain d enies. J oint Fluid d enies. B ack pain d enies. K nee pain d enies. N keysha pain d enies. J oint Stiffness d enies. M uscle cramps d enies. W eakness of muscles d enies. A rthritis d enies. M uscle aches d enies. P ain in shoulder(s) d enies. S wollen joints d enies. * Active Problem List N20.0 Kidney stone Modified On:08/24/2022U Status:confirmed E78.00 Hypercholesteremia Modified On:08/24/2022U Status:confirmed M17.9 Knee osteoarthritis Modified On:11/21/2022U Status:confirmed R55 Syncope Modified On:12/12/2022U Status:confirmed I49.9 Arrhythmia Modified On:12/26/2022U Status:confirmed I45.10 RBBB Modified On:12/26/2022U Status:confirmed K52.9 Acute gastroenteriti s Modified On:01/20/2023U Status:confirmed R00.2 Palpitations Modified On:02/01/2023/U Status:confirmed J32.9 Sinusitis Modified On:12/20/2023W/U Status:confirmed E83.42 Hypomagnesemia Modified On:04/12/2023 Status:confirmed W19.XXXA Fall Modified On:03/27/2023 Status:confirmed I16.0 Hypertensive urgency Modified On:03/06/2023 Status:confirmed E87.1 Hypo-osmolality and hyponatremia Modified On:04/07/2023 Status:confirmed E03.9 Hypothyroidism, unsp ecified Modified On:04/07/2023 Status:confirmed I48.91 AF (atrial fibrillat ion) Modified On:04/12/2023 Status:confirmed R00.1 Bradycardia Modified On:04/14/2023 Status:confirmed R07.9 Chest pain Modified On:04/18/2023 Status:confirmed S12.401A Closed nondisplaced fracture of fifth cervical vertebra Modified On:01/25/2024 Status:confirmed M81.0 Osteoporosis Modified On:02/27/2024 Status:confirmed L60.0 Onychocryptosis Modified On:07/29/2024 Status:confirmed * Medical History: * Surgical History: B ack Surgery X 2 Gall Bladder Removal Tonsillectomy Excisional Biopsy Lesion left Nasolabial fold- Dr. moreau 06/21/23 * Hospitalization/Major Diagno stic Procedure: s ee above Colitis 11/12Low Sodium 03/2023 * Family History: F ather: , Lupus. M other: 64 yrs, aneurysm, hypertension, diagnosed with Unspecified essential hypertension. B rother(s): alive. S ister(s): alive. S on(s): alive. D luke(s): alive. 3 brother(s) , 3 sister(s) . 2 son(s) , 1 daughter(s) . . * Social History: T obacco Use: T obacco Use/Smoking P atient is a n onsmoker D rug/Alcohol: A JASPREET-C (Standard) D id you have a drink containing alcohol in the past year? N o P oints 0 I nterpretation N egative * Medications: T akingCarvedilol 25 MG Tablet 1 tablet with food Orally Twice a day CeleXA(Citalopram Hydrobromide) 20 MG Tablet 1 tablet Orally Once a day Irbesartan 300 MG Tablet 1 tablet Orally Once a day Klor-Con M20(Potassium Chloride Swetha ER) 20 MEQ Tablet Extended Release TAKE 1 TABLET BY MOUTH THREE TIMES DAILY levoFLOXacin 500 MG Tablet 1 tablet Orally Once a day Levothyroxine Sodium 88 MCG Tablet TAKE 1 TABLET BY MOUTH ONCE DAILY IN THE MORNING ON AN EMPTY STOMACH Magnesium Oxide 400 MG Tablet 1 tablet as needed Orally TID Norvasc(amLODIPine Besylate) 5 MG Tablet 1 tablet Orally Once a day Ondansetron 4 MG Tablet Disintegrating 1 tablet on the tongue and allow to dissolve Orally QID PRN Pantoprazole Sodium 40 MG Tablet Delayed Release 1 tablet Orally Once a day Pravastatin Sodium 80 MG Tablet Take 1 tablet by mouth once daily Pyridium(Phenazopyridine HCl) 200 MG Tablet 1 tablet after meals Orally Three times a day Tamiflu(Oseltamivir Phosphate) 75 MG Capsule 1 capsule Orally Twice a day Medication List reviewed and reconciled with the patientTaking Carvedilol 25 MG Tablet 1 tablet with food Orally Twice a day Taking CeleXA(Citalopram Hydrobromide) 20 MG Tablet 1 tablet Orally Once a day Taking Irbesartan 300 MG Tablet 1 tablet Orally Once a day Taking Klor-Con M20(Potassium Chloride Swetha ER) 20 MEQ Tablet Extended Release TAKE 1 TABLET BY MOUTH THREE TIMES DAILY Taking levoFLOXacin 500 MG Tablet 1 tablet Orally Once a day Taking Levothyroxine Sodium 88 MCG Tablet TAKE 1 TABLET BY MOUTH ONCE DAILY IN THE MORNING ON AN EMPTY STOMACH Taking Magnesium Oxide 400 MG Tablet 1 tablet as needed Orally TID Taking Norvasc(amLODIPine Besylate) 5 MG Tablet 1 tablet Orally Once a day Taking Ondansetron 4 MG Tablet Disintegrating 1 tablet on the tongue and allow to dissolve Orally QID PRN Taking Pantoprazole Sodium 40 MG Tablet Delayed Release 1 tablet Orally Once a day Taking Pravastatin Sodium 80 MG Tablet Take 1 tablet by mouth once daily Taking Pyridium(Phenazopyridine HCl) 200 MG Tablet 1 tablet after meals Orally Three times a day Taking Tamiflu(Oseltamivir Phosphate) 75 MG Capsule 1 capsule Orally Twice a day Medication List reviewed and reconciled with the patient * Allergies: P rednisone: Blisters - Criticality HighAtorvastatin: Blisters - Criticality Highno[Allergies Verified] Objective: * Vitals: W t:147lbs, Ht: 61 in, BP:146/76mm Hg, BMI:27.77Index, Ht-cm: 154.94 cm, Wt-k.68 kg. * Examination: P hysical Exam: GENERAL: w ell developed, well nourished, in no acute distress. HEAD: n ormocephalic/atraumatic. EYES: p upils equal, round and reactive to light, conjunctivae and sclerae normal. EARS: n o deformity or lesion of external ear, canals and TM appear normal bilaterally, TM's intact, not inflamed with normal light reflex, hearing grossly normal to conversational speech. NOSE: n o deformity, discharge, inflammation, or lesions.? MOUTH: m ucous membranes moist, normal oropharynx and posterior pharynx without lesions or exudates, tongue normal, dentition normal. NECK: n keysha supple, no masses or palpable cervical nodes, trachea midline, thyroid without nodules, masses, tenderness, or enlargement. CHEST: n o chest wall deformity, no chest wall tenderness.? LUNGS: n ormal respiratory effort and clear to auscultation, no wheezes, rales, or rhonchi, good air exchange. CARDIO: r egular rate and rhythm, normal S1 and S2, nor murmur, rub, or gallop. PULSES: n ormal capillary refill. ABDOMEN: s oft, non-distended, non-tender, no masses. MUSCULOSKELETAL: n o deformity or scoliosis noted, normal range of motion, joints normal, no erythema, edema, effusion, or ecchymosis. EXTREMITY: n o clubbing, cyanosis, edema, or deformity with normal ROM in both upper and lower bilateral extremities. NEUROLOGIC: g rossly normal. SKIN: n o rashes, ulcerations, or suspicious lesions. LYMPH NODES: n o cervical adenopathy, nodes normal. MENTAL STATUS: a lert and oriented x3, normal mood and affect. Assessment: * Assessment: 1. A cute UTI - N39.0 (Primary) 2 . O ther fatigue - R53.83 ?3. A nxiety - F41.9 Plan: * Treatment: 2. O thers Stop levoFLOXacin Tablet, 500 MG, 1 tablet, Orally, Once a day; S top Pyridium Tablet, 200 MG, 1 tablet after meals, Orally, Three times a day. * Labs: * L ab: UA (Urinalysis, Dipstix only - w/o micro) (Collection Date & Time - 09/17/2024) Value Reference Range C OLOR yellow Yellow - Dorie - * C LARITY clear Clear - Clear * G LUCOSE - 0 - 133 MG/DL * A LBUMIN - NEG - NEG MG/DL * B ILIRUBIN - NEG - NEG MG/DL * S PECIFIC GRAVITY 1.01 1.001 - 1.035 * K ETONES 0.5 NEG - NEG MG/DL * B LOOD, UR - * P H, UR 5 5 - 9 * U ROBILNOGEN 0.2 0.2 - 1 MG/DL * N ITRITE - NEG - NEG * E STERASE (NIKI) ++ NEG - NEG MG/DL * Procedure Codes: 8 1002 URINALYSIS WO MICRO * Preventive Medicine: Screenings/Counseling: B [place] ACTION PLAN Above Normal BMI Follow-up D ietary management education, guidance, and counseling * * Sign off status: Completed Visit Status: C HK (Check Out) true * Provider: Hung Clemente ([facility])MD Date: 0 09/17/2024 Generated for Printi ng/Faxing/eTransmitting on: 0 10/11/2024 11:51 AM EDT History and Physical Notes * HPI (History of Present Illness) Category Sub-Category Detail Notes Category Not es General Diarrhea wth streaking blood - bright red - diarrhea - been going on for awhile - nerves seems to make it worse - some better the morning but then rest of the say is loose Examination Category Sub-Category Detail Notes Category Not es Physical Exam GENERAL: well developed, well nourished, in no acute distress HEAD: normocephalic/atraum atic EYES: pupils equal, round and reactive to light, conjunctivae and sclerae normal EARS: no deformity or lesi on of external ear, canals and TM appear normal bilaterally, TM's intact, not inflamed with normal light reflex, hearing grossly normal to conversational speech NOSE: no deformity, discha rge, inflammation, or lesions MOUTH: mucous membranes [address], normal oropharynx and posterior pharynx without lesions or exudates, tongue normal, dentition normal NECK: neck supple, no mass es or palpable cervical nodes, trachea midline, thyroid without nodules, masses, tenderness, or enlargement CHEST: no chest wall deform ity, no chest wall tenderness LUNGS: normal respiratory e ffort and clear to auscultation, no wheezes, rales, or rhonchi, good air exchange CARDIO: regular rate and rhy thm, normal S1 and S2, nor murmur, rub, or gallop PULSES: normal capillary ref ill ABDOMEN: soft, non-distended, non-tender, no masses RECTAL: MUSCULOSKELETAL: no deformity or scol iosis noted, normal range of motion, joints normal, no erythema, edema, effusion, or ecchymosis EXTREMITY: no clubbing, cyanosi s, edema, or deformity with normal ROM in both upper and lower bilateral extremities NEUROLOGIC: grossly normal SKIN: no rashes, ulceratio ns, or suspicious lesions LYMPH NODES: no cervical adenopat hy, nodes normal MENTAL STATUS: alert and oriented x 3, normal mood and affect
--- OUTSIDE RECORDS SUMMARY | 2024-10-11 07:15 | XMS_ITS ---
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 Name Role Phone Darien Clemente Primary Care Provider Allergies Allergen (clinical drug ingredient) Drug/Non Drug Allergy documented on EMR Reaction Allergy Type Onset Date Status atorvastatin Atorvastatin Blisters Drug Allergy A ctive prednisone Prednisone Blisters Drug Allergy Activ e Results Component Value Reference Range Notes UA DIP NONAUTO WO MICRO (810 02) - IN OFFICE (Not yet reviewed by provider) Interpretation: Performing Lab: Notes/Report: COLOR yellow CLARITY clear GLUCOSE neg BILIRUBIN pos KETONE pos SPECIFIC GRAVITY 1.015 BLOOD neg PH 6.0 PROTEIN pos UROBILINOGEN neg NITRITE neg LEUKOCYTE ESTERASE neg REASON FOR VISIT Presents to office with daughter for c/o burning after, right side flank pain, hot flashes at night, Also asking for blood work. Has been several months since electrolytes have been checked Medications Medication SIG (Take, Route, Frequency, Duration) Notes Start Date End Date Status Pravastatin Sodium 80 MG Take 1 tablet b y mouth once daily for 90 days Active Pantoprazole Sodium 40 MG 1 tablet Orall y Once a day for 90 days Active Norvasc 5 MG 1 tablet Orally Once a day for 90 days 06/27/2022 Active Magnesium Oxide 400 MG 1 tablet as neede d Orally TID for 90 days Active Levothyroxine Sodium 88 MCG TAKE 1 TABLE T BY MOUTH ONCE DAILY IN THE MORNING ON AN EMPTY STOMACH for 90 days Active Klor-Con M20 20 MEQ TAKE 1 TABLET BY ISAC TH THREE TIMES DAILY for 90 days Active Irbesartan 300 MG 1 tablet Orally Once a day for 90 days Active CeleXA 20 MG 1 tablet Orally Once a day for 90 days 04/13/2023 Active Carvedilol 25 MG 1 tablet with food Orally Twice a day for 90 days 04/17/2023 Active Social History Tobacco Use: Social History Observation Description Date Details (start date - stop date) Never Smoker NA - NA Tobacco Use/Smoking Question Answer Notes Patient is a nonsmoker AUDIT-C (Standard) Question Answer Notes Did you have a drink containing alcohol in the p ast year? No Points 0 Interpretation Negative Vital Signs Weight 145.2 lbs 10/11/2024 Height 61 in 10/11/2024 Blood pressure systolic 138 mm Hg 10/12/19 25 Blood pressure diastolic 78 mm Hg 025 BMI 27.43 kg/m2 10/11/2024 Encounters Encounter Location Date Provider Diagnosis [facility] [address] [place] [address] 10/11/2024 Darien Chyna Frequency R35.0 ; Kidney stone N20.0 ; RBBB I45.10 and Arrhythmia I49.9 Assessments Encounter Date Diagnosis (ICD Code) Assessment Notes Treatment Notes Treatment Clinical Notes Section Notes 10/11/2024 Frequency (ICD-10 - R35.0) 10/11/2024 Kidney stone (ICD-10 - N20.0) 10/11/2024 RBBB (ICD-10 - I45.10) 10/11/2024 Arrhythmia (ICD-10 - I49.9) Plan Of Treatment Pending Test Test Name Order Date HEMOGLOBIN A1C (GLYCO) 10/11/2024 IRON, TOTAL 10/11/2024 Urinalysis Microscopic 10/11/2024 UA DIP NONAUTO WO MICRO (48943) - IN OFF ICE 10/11/2024 CULTURE URINE 10/11/2024 MAGNESIUM 10/11/2024 THYROID PANEL (T4/TSH/FREE T3) CMP (COMP MET WEST) w/eGFR CKD-EPI 2024 CBC WITH DIFF 10/11/2024 Progress Notes * Rebeca MADRIDDOB: [birth year] (88 yo F)Acc No.[id number]:10/11/2024 UNLOCKED PROGRESS NOTE Progress Note Patient: Renato Rebeca WILLETT Provider: Hung Clemente ([facility])MD :1935 A ge:88 Y S ex:Female Date:10/11/2024 Address:[facility] [address], [place] [facility] Check In:11:04 AM ESTCheck O ut:11:40 AM EST Subjective: * Chief Complaints: * 1 . Presents to office with daughter for c/o burning after, right side flank pain, hot flashes at night. 2. Also asking for blood work. Has been several months since electrolytes have been checked. * HPI: G eneral: UTI symptosm needs follow up on electrolytes\. * ROS: E ENT: hearing changes d [...] enies. S wollen joints d enies. * Medical History: H ypokalemia, Hyponatremia, Abdominal Pain, Absolute Hypovolemia, Kidney Stone, Nausea and Vomiting. * Surgical History: B ack Surgery X 2 , Gall Bladder Removal , Tonsillectomy , Excisional Biopsy Lesion left Nasolabial fold- Dr. moreau 06/21/23. * Hospitalization/Major Diagno stic Procedure: s ee above , Colitis 11/12, Low Sodium 03/2023. * Family History: F ather: , Lupus. [...] I nterpretation N egative * Medications: T aking Carvedilol 25 MG Tablet 1 tablet with food Orally Twice a day , Taking CeleXA(Citalopram Hydrobromide) 20 MG Tablet 1 tablet Orally Once a day , Taking Irbesartan 300 MG Tablet 1 tablet Orally Once a day , Taking Klor-Con M20(Potassium Chloride Swetha ER) 20 MEQ Tablet Extended Release TAKE 1 TABLET BY MOUTH THREE TIMES DAILY , Taking Levothyroxine Sodium 88 MCG Tablet TAKE 1 TABLET BY MOUTH ONCE DAILY IN THE MORNING ON AN EMPTY STOMACH , Taking Magnesium Oxide 400 MG Tablet 1 tablet as needed Orally TID , Taking Norvasc(amLODIPine Besylate) 5 MG Tablet 1 tablet Orally Once a day , Taking Pantoprazole Sodium 40 MG Tablet Delayed Release 1 tablet Orally Once a day , Taking Pravastatin Sodium 80 MG Tablet Take 1 tablet by mouth once daily , Discontinued Ciprofloxacin HCl 500 MG Tablet 1 tablet Orally every 12 hrs , Discontinued hydrOXYzine HCl 25 MG Tablet 1 tablet as needed Orally qid , Discontinued Hyoscyamine Sulfate 0.125 MG Tablet Sublingual 1-2 tabs SL SL every 4 hrs PRN abd pain , Discontinued Ondansetron 4 MG Tablet Disintegrating 1 tablet on the tongue and allow to dissolve Orally QID PRN , Discontinued Tamiflu(Oseltamivir Phosphate) 75 MG Capsule 1 capsule Orally Twice a day , Medication List reviewed and reconciled with the patient * Allergies: P rednisone: Blisters - Criticality High, Atorvastatin: Blisters - Criticality High. Objective: * Vitals: W t:145.2lbs, Ht: 61 in, BP:138/78mm Hg, BMI:27.43Index, Ht-cm: 154.94 cm, Wt-k.86 kg. * Examination: P hysical Exam: GENERAL: [...] mood and affect. Assessment: * Assessment: 1. F requency - R35.0 (Primary) 2 . K [place] stone - N20.0 3 . R BBB - I45.10 4 . A rrhythmia - I49.9 Plan: * Treatment: 2. K eugene bhatti L AB: HEMOGLOBIN A1C (GLYCO) L AB: IRON, TOTAL L AB: THYROID PANEL (T4/TSH/FREE T3) L AB: CMP (COMP MET WEST) w/eGFR CKD-EPI L AB: CBC WITH DIFF 3. R BBB L AB: HEMOGLOBIN A1C (GLYCO) L AB: IRON, TOTAL L AB: MAGNESIUM L AB: THYROID PANEL (T4/TSH/FREE T3) L AB: CMP (COMP MET WEST) w/eGFR CKD-EPI L AB: CBC WITH DIFF 4. A rrhythmia L AB: HEMOGLOBIN A1C (GLYCO) L AB: IRON, TOTAL L AB: MAGNESIUM L AB: THYROID PANEL (T4/TSH/FREE T3) L AB: CMP (COMP MET WEST) w/eGFR CKD-EPI L AB: CBC WITH DIFF * Labs: * L ab: UA DIP NONAUTO WO MICRO (23624) - IN OFFICE (Collection Date & Time - 10/11/2024) Value Reference Range C OLOR yellow * C LARITY clear * G LUCOSE neg * B ILIRUBIN pos * K ETONE pos * S PECIFIC GRAVITY 1.015 * B LOOD neg * P H 6.0 * P ROTEIN pos * U ROBILINOGEN neg * N ITRITE neg * L EUKOCYTE ESTERASE neg * Procedure Codes: 3 078F DIAST BP < 80 MM HG, 3075F SYST BP GE 130 - 139MM HG, [address] URINALYSIS WO MICRO * Preventive Medicine: Screenings/Counseling: B [place] ACTION PLAN Above Normal BMI Follow-up D ietary management education, guidance, and counseling See treatment section of progress note for complete details of management plan. F ALL RISK SCREENING Fall Risk Assessment: N o falls in the past year * * Electronic signature of Darien Clemente MD, [phone] on 10/11/2024 at 11:51 AM EDT Sign off status: Pending Visit Status: C HK (Check Out) * Provider: Hung Clemente ([facility])MD Date: 10/11/2024 Generated for Printi ng/Faxing/eTransmitting on: 10/11/2024 11:51 AM EDT History and Physical Notes * HPI (History of Present Illness) Category Sub-Category Detail Notes Category Not es General UTI symptosm needs follow up on electrolytes\ Examination Category Sub-Category Detail Notes Category Not [...]
--- OUTSIDE RECORDS SUMMARY | 2024-10-11 11:51 | XMS_ITS | Clinical Summary ---
Author Organization [facility] Address [address] [place] [address] Care Team Providers Care Automatic Vulcanizing Operator Name Role Phone Addy Clemente MD Primary Care Provider [phone] Allergies Active Allergy Reactions Criticality Noted Date Comments Atorvastatin Hives 04/04/2022 Ibuprofen GI intolerance,Unknown 07/24/2024 Prednisone Hives,Rash Low 09/01/2017 Wound Dressing Adhesive 07/24/2024 Medications amLODIPine (Norvasc) 5 MG tablet Take 5 mg by mouth Daily 05/06/2024 Active carvedilol (Coreg) 25 MG tablet TAKE 1 TABLET BY MOUTH TWICE A DAY WITH FOOD FOR 90 DAYS 06/04/2024 Active citalopram (CeleXA) 20 MG tablet Take 20 mg by mouth in the morning. 07/07/2024 Active irbesartan (Avapro) 300 MG tablet TAKE 1 TABLET BY MOUTH EVERY DAY FOR 90 DAYS 07/08/2024 Active levothyroxine (Synthroid, Levoxyl) 88 MCG tablet TAKE 1 TABLET BY MOUTH EVERY DAY IN THE MORNING ON AN EMPTY STOMACH Active magnesium oxide (Mag-Ox) 400 MG tablet Take 1 tablet by mouth 3 (three) times a day as needed 03/05/2024 Active KLOR-CON 20 MEQ ER tablet TAKE 1 TABLET BY MOUTH THREE TIMES DAILY for 90 days Active pravastatin (Pravachol) 80 MG tablet Take 80 mg by mouth Daily Active Active Problems No known active problems Encounters Date Type Department Care Team Description 08/07/2024 1:20 PM EDT Office Visit [facility] [address] [place] [id number] Yosi Zaragoza, DPM FACFAS Abscess, toe, left (Primary Dx); Onychocryptosis; Pain in left toe(s); Onychomycosis; Pain in right toe(s) 08/07/2024 Bamboo flowsheet [facility] [address] [place] [phone] Yosi Zaragoza, DPM FACFAS 07/24/2024 1:20 PM EDT Office Visit [facility] [address] [place] [phone] Yosi Zaragoza, DPM FACFAS Onychocryptosis (Primary Dx); Abscess, toe, left; Pain in left toe(s) 07/24/2024 Abstract [facility] [address] [facility] [place] [phone] Yosi Zaragoza, DPM FACFAS 07/24/2024 Bamboo flowsheet [facility] [address] [place] [phone] Yosi Zaragoza, DPM FACFAS from Last 3 Months Family History Relation Name Status Comments Father Mother Social History Tobacco Use Types Packs/Day Years Used Date Smoking Tobacco: Never Smokeless Tobacco: Never Tobacco Cessation:Counseling Given: Yes Comments Unknown Sex and Gender Information Value Date Recorded Sex Assigned at Not on file Legal Sex Female 6:43 PM EDT Gender Identity Not on file Sexual Orientation Not on file Last Filed Vital Signs Vital Sign Reading Time Taken Comments Blood Pressure 147/81 08/07/2024 1:19 PM EDT Pulse 75 08/07/2024 1:19 PM EDT Temperature - - Respiratory Rate - - Oxygen Saturation - - Inhaled Oxygen Concentration - - Weight 64.4 kg (142 lb) 08/07/2024 1:19 PM EDT Height 154.9 cm (5' 1 ) 08/07/2024 1:19 PM EDT Body Mass Index 26.83 08/07/2024 1:19 PM EDT Plan of Treatment Upcoming Encounters Date Type Department Care Team (Late st Contact Info) Description 11/06/2024 1:10 PM EDT Procedure Visit [facility] [address] [place] [address] Yosi Zaragoza, DPM FACFAS [address] [place] [address] Insurance MEDICARE [facility] OTHER Care Teams Automatic Vulcanizing Operator Relationship Specialty Start Date End Date Addy Clemente MD [address] [facility] [place] [phone] PCP - General Family Medicine 07/24/24
--- OUTSIDE RECORDS SUMMARY | 2024-10-11 11:51 | XMS_ITS | Encounter Summary ---
Author Organization [facility] Address [address] [place] [address] Care Team Providers Care Child Day Care Provider Name Role Phone Addy Clemente MD Primary Care Provider [phone] Encounter Details Date Type Department Care Team ([facility] Contact Info) Description 07/24/2024 Abstract [facility] [address] [place] [address] Yosi Zaragoza, DPM FACFAS [address] [place] [address] Social History Tobacco Use Types Packs/Day Years Used Date Smoking Tobacco: Never Smokeless Tobacco: Never Comments Unknown Sex and Gender Information Value Date Recorded Sex Assigned at Not on file Legal Sex Female 6:43 PM EDT Gender Identity Not on file Sexual Orientation Not on file documented as of this encounter Plan of Treatment Upcoming Encounters Date Type Department Care Team ([facility] Contact Info) Description 11/06/2024 1:10 PM EDT Procedure Visit [facility] [address] [place] [address] Yosi Zaragoza, DPM FACFAS [address] [place] [address] documented as of this encounter Visit Diagnoses Not on filedocumented in this encounter Care Teams Child Day Care Provider Relationship Specialty Start Date End Date Addy Clemente MD [address] [place] [address] PCP - General Family Medicine 07/24/24 documented as of this encounter
--- OUTSIDE RECORDS SUMMARY | 2024-10-11 11:52 | XMS_ITS | Clinical Summary ---
Author Organization [facility] Address [address], [address] [place] [address] Care Team Providers Care Interior Design Instructor Name Role Phone Lavonne Chery MD Primary Care Provider [phone] Allergies Active Allergy Reactions Criticality Noted Date Comments Prednisone Hives 09/01/2017 Medications aspirin 81 MG tablet Take 81 mg by mouth daily Active losartan (COZAAR) 100 MG tablet Take 100 mg by mouth daily Active amLODIPine (NORVASC) 10 MG tablet Take 10 mg by mouth daily Active pravastatin (PRAVACHOL) 80 MG tablet Take 80 mg by mouth daily Active potassium chloride (KLOR-CON) 20 MEQ packet Take 20 mEq by mouth 2 times daily Active gabapentin (NEURONTIN) 100 MG capsule Take 1 capsule by mouth 3 times daily for 30 days. 90 capsule 11/02/2018 Active levothyroxine (SYNTHROID) 88 MCG tablet Take 1 tablet by mouth Daily 30 tablet 3 11/20/2018 Active famotidine (PEPCID) 20 MG tablet Take 1 tablet by mouth 2 times daily 60 tablet 3 11/19/2018 Active Active Problems Problem Noted Date Diagnosed Date Impaired mobility 11/15/2018 Spinal stenosis of lumbosacral region 11/15/2018 Lumbar spondylosis 11/13/2018 Intractable back pain 11/04/2018 Vasovagal syncope Social History Tobacco Use Types Packs/Day Years Used Date Smoking Tobacco: Never Smokeless Tobacco: Never Alcohol Use Standard Drinks/Week Comments Not Currently 0 (1 standard drink = 0.6 oz pur e alcohol) Comments No Sex and Gender Information Value Date Recorded Sex Assigned at Not on file Legal Sex Female 10:53 AM EDT Gender Identity Not on file Sexual Orientation Not on file Last Filed Vital Signs Vital Sign Reading Time Taken Comments Blood Pressure 153/61 11/20/2018 7:02 AM EDT Pulse 75 11/20/2018 7:02 AM EDT Temperature 36.2 C (97.1 F) 04/03/2020 10:02 AM EST Respiratory Rate 17 11/20/2018 7:02 AM EDT Oxygen Saturation 97% 11/20/2018 7:02 AM EDT Inhaled Oxygen Concentration - - Weight 61.2 kg (135 lb) 04/03/2020 10:02 AM EST Height 154.9 cm (5' 1 ) 04/03/2020 10:02 AM EST Body Mass Index 25.51 04/03/2020 10:02 AM EST Plan of Treatment Not on file Medical Devices Implanted Type Area Rug Dyer Helper Device Identifier Shelf Expiration Date Model / Serial / Lot Graft Canc Chip 30cc [id number] - [id number] Implanted:Qt y: 1 on 11/13/2018 by Lenny Mcclellan MD at [facility] Bone/Gra ft/Tissu e/Human/ Synth N/A: Spine Lumbar MUSCULOSKELETAL TRANSPLANT FND-PMM 08/11/2021 [id number] / [id number] / Graft Canc Chip [id number] 15cc - [id number] Implanted:Qt y: 1 on 11/13/2018 by Lenny Mcclellan MD at [facility] Bone/Gra ft/Tissu e/Human/ Synth N/A: Spine Lumbar MUSCULOSKELETAL TRANSPLANT FND-PMM 05/18/2021 [id number] / [id number] / Sys Fix Reline 0x Conn 40 50mm 5.5lp Adj Implanted:Qt y: 1 on 11/13/2018 by Lenny Mcclellan MD at [facility] Spine N/A: Spine Lumbar [employer]-PMM [id number] / / Jose Armando-Graft Infuse Kt Med Implanted:Qt y: 1 on 11/13/2018 by Lenny Mcclellan MD at [facility] Spine N/A: Spine Lumbar [employer]-PMM 07/20/2020 [id number] / / Impl Spine Cage Kamila Crv [id number] 8deg Implanted:Qt y: 1 on 11/13/2018 by Lenny Mcclellan MD at [facility] Spine N/A: Spine Lumbar [employer]-PMM 03/23/2019 / / [id number] Impl Spine Cage Kamila Crv [id number] 8deg Implanted:Qt y: 1 on 11/13/2018 by Lenny Mcclellan MD at [facility] Spine N/A: Spine Lumbar [employer]-PMM 03/23/2019 / / [id number] Screw Polyaxial Reline O 2s 6.0x55mm Implanted:Qt y: 6 on 11/13/2018 by Lenny Mcclellan MD at [facility] Spine N/A: Spine Lumbar [employer]-PMM [id number] / / Screw Lk Reline Opn Tulip 5.5mm Implanted:Qt y: 6 on 11/13/2018 by Lenny Mcclellan MD at [facility] Spine N/A: Spine Lumbar [employer]-PMM [id number] / / Impl Spine Harish Reline-O Lrdtc 5.5x70mm Implanted:Qt y: 1 on 11/13/2018 by Lenny Mcclellan MD at [facility] Spine N/A: Spine Lumbar [employer]-PMM [id number] / / Impl Spine Harish Reline-O 5.5x75mm Implanted:Qt y: 1 on 11/13/2018 by Lenny Mcclellan MD at [facility] Spine N/A: Spine Lumbar [employer]-PMM [id number] / / Insurance [employer] MEDICARE MEDICARE Member Subscriber Plan / Payer ( fective 2018-Present) Name:Rebeca Gurrola Relation to Subscriber:Self Name:Rebeca Gurrola Payer ID:Not on file Group ID:Not on file Type:Not on file Address: [address] Advance Directives Documents on File Type Date Recorded Patient Furnace Fitter Expl anation ACP-Advance Directive 11/21/2018 1:53 AM A D info sheets * Full Code (Latest Code Status on File) Date Activated Date Inactivated Comments 11/15/2018 9:48 PM 11/20/2018 8:07 PM * Full Code Date Activated Date Inactivated Comments 11/15/2018 3:32 PM 11/15/2018 9:48 PM * Full Code Date Activated Date Inactivated Comments 11/13/2018 4:05 PM 11/15/2018 3:29 PM * Full Code Date Activated Date Inactivated Comments 11/05/2018 6:34 PM 11/05/2018 10:30 PM * Full Code Date Activated Date Inactivated Comments 11/04/2018 5:08 PM 11/05/2018 6:34 PM Care Teams Interior Design Instructor Relationship Specialty Start Date End Date Lavonne Chery MD PCP - General Family Medicine 08/30/17
--- OUTSIDE RECORDS SUMMARY | 2024-10-11 11:52 | XMS_ITS | Clinical Summary ---
Author Organization [facility] Address [address] [place] [address] Care Team Providers Care Sales Driver Name Role Phone Addy Clemente MD Primary Care Provider [phone] Allergies Active Allergy Reactions Criticality Noted Date Comments Atorvastatin 04/04/2022 Prednisone Hives 09/01/2017 Medications amLODIPine (Norvasc) 10 mg tablet Take by mouth in the morning. Active aspirin 81 mg EC tablet in the morning. Acti ve levothyroxine (Synthroid, Levoxyl) 88 mcg tablet 2 Active losartan (Cozaar) 100 mg tablet Take 100 mg by mouth in the morning. Active potassium chloride (Klor-Con) 20 mEq packet Take 20 mEq by mouth in the morning, at noon, and at bedtime. Active pravastatin (Pravachol) 80 mg tablet pravastatin 80 mg tablet TAKE 1 TABLET BY MOUTH ONCE DAILY 2 Active hydroCHLOROthiaz ruby (HYDRODiuril) 25 mg tabletIndication s:Benign hypertensive heart disease without congestive heart failure Take 1 tablet (25 mg) by mouth once daily as directed. 90 tablet 3 3 Active pantoprazole (ProtoNix) 40 mg EC tablet if needed. 3 Active carvedilol (Coreg) 25 mg tabletIndication s:Essential hypertension,Non rheumatic aortic valve stenosis Take 1 tablet (25 mg) by mouth with breakfast and with evening meal. 180 tablet 3 3 Active furosemide (Lasix) 20 mg tabletIndication s:Edema of both lower extremities Take 1 tablet (20 mg) by mouth if needed each day (for increased weight, water retention, leg swelling- take for 2-3 days and then stop). 15 tablet 11 3 Active Additional Information Patient not taking.Reported on 01/11/2023 magnesium oxide (Mag-Ox) 400 mg (241.3 mg magnesium) tablet Take 1 tablet by mouth in the morning. 3 Active Active Problems Problem Noted Date Diagnosed Date Non-sustained ventricular tachycardia 01/11/2023 Assessment & Plan (01/11/2023 10:35 AM EST): Noted 7 beat run of NSVT on 1 week holter monitor, along with SVT, PVCs Recommended to continue coreg 25 mg bid, will place 30 day monitor, and obtain treadmill cardiolite stress test for ischemic evaluation. 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 10/14/2022 Aortic valve stenosis 06/15/2020 Assessment & Plan (01/11/2023 10:28 AM EST): Will monitor with routine echocardiogram annually unless pt has concerning symptoms Assessment & Plan (10/14/2022 12:41 PM EDT): Mild on recent echo No concerning symptoms Tricuspid valve regurgitation 06/15/2020 Assessment & Plan (01/11/2023 10:23 AM EST): Will monitor with routine echocardiogram annually unless pt has concerning symptoms Assessment & Plan (10/14/2022 12:34 PM EDT): No concerning symptoms Will continue to monitor with echocardiogram Impaired mobility 11/15/2018 Spinal stenosis of lumbosacral region 11/15/2018 Lumbar spondylosis 11/13/2018 Intractable back pain 11/04/2018 Carotid artery stenosis 04/13/2018 Assessment & Plan (01/11/2023 10:35 AM EST): Recommended to continue ASA and pravastatin Assessment & Plan (10/14/2022 12:41 PM EDT): Continue ASA and statin Anxiety 02/28/2017 Edema of both lower extremities 02/28/2017 Assessment & Plan (10/14/2022 12:42 PM EDT): Stable and non pitting currently Essential hypertension 02/28/2017 Assessment & Plan (01/11/2023 10:25 AM EST): Hypertension is stable Reviewed B/P log and typically in the mornings her b/p with well controlled 120's/70-80, and in the evenings can be up to 140/80 Continue all meds and will add toprol Assessment & Plan (10/14/2022 12:36 PM EDT): Hypertension is uncontrolled 160/75- admits this is where her b/p is at home Increase coreg to 25 mg bid, continue losartan 100 mg, hydrochlorothiazide 25 mg, and amlodipine 10 mg Hyperlipidemia 02/28/2017 Assessment & Plan (01/11/2023 10:24 AM EST): Continue pravastatin Assessment & Plan (10/14/2022 12:35 PM EDT): Continue pravastatin Hypokalemia 02/28/2017 Hypothyroidism 02/28/2017 Vasovagal syncope 02/28/2017 Assessment & Plan (01/11/2023 10:29 AM EST): Pt reports that she has had 5 syncopal episodes since this Summer- some while having a BM, and other episodes while just up and walking. Assessment & Plan (10/14/2022 12:42 PM EDT): Currently stable Pt to call for any recurrent syncope or concerns Nonrheumatic aortic valve insufficiency 06/12/19 16 Assessment & Plan (01/11/2023 10:24 AM EST): Will monitor with routine echocardiogram annually unless pt has concerning symptoms Assessment & Plan (10/14/2022 12:35 PM EDT): No concerning symptoms Will continue to monitor with echocardiogram Preoperative cardiovascular examination 06/12/19 16 Resolved Problems Problem Noted Date Diagnosed Date Resolved Date Atrial fibrillation 10/14/2022 10/14/2022 10/15/19 23 Essential hypertension with goal blood pressure less than 140/90 06/12/2015 10/14/2022 Family History Medical History Relation Name Comments Aneurysm Father Coronary artery disease Father Hypertension Father Coronary artery disease Mother Heart attack Mother Hypertension Mother Lupus Mother Hypertension Sister Lupus Sister Relation Name Status Comments Father Mother Sister Social History Tobacco Use Types Packs/Day Years Used Date Smoking Tobacco: Never Smokeless Tobacco: Never Tobacco Cessation:Counseling Given: Not Answered Alcohol Use Standard Drinks/Week Comments Yes 0 (1 standard drink = 0.6 oz pur e alcohol) occasional [place] Safety & Environment Answer Date Rec orded Fear of Current or Ex-Partner Not on file Emotionally Abused Not on file 04/13/2023 Physically Abused Not on file 04/13/2023 Sexually Abused Not on file 04/13/2023 Physically or Sexually Abused Not on file Comments Unknown Sex and Gender Information Value Date Recorded Sex Assigned at Not on file Legal Sex Female 10:37 PM EDT Gender Identity Not on file Sexual Orientation Not on file Last Filed Vital Signs Vital Sign Reading Time Taken Comments Blood Pressure 164/78 01/11/2023 9:24 AM EST Pulse 80 01/11/2023 9:24 AM EST Temperature - - Respiratory Rate - - Oxygen Saturation 97% 01/11/2023 9:16 AM EST Inhaled Oxygen Concentration - - Weight 64 kg (141 lb) 01/11/2023 9:16 AM EST Height 154.9 cm (5' 1 ) 01/11/2023 9:16 AM EST Body Mass Index 26.64 01/11/2023 9:16 AM EST Plan of Treatment Health Maintenance Due Date Last Done Comments Medicare Annual Wellness (AWV) 1935 Depression Screening 1947 Pneumococcal Vaccine: 50+ Years (1 of 2 - PCV) 11/13/1955 Adult Tetanus 1958 Zoster Vaccines (1 of 2) 1986 Fall Risk Screening 2001 COVID-19 Vaccine (2023- season) 2023 Influenza Vaccine (#1) 2024 2, 12/21/2020, 01/09/2019, Additional history exists HIB Vaccines Aged Out No longer eligi ble based on patient's age to complete this topic HPV Vaccines Aged Out No longer eligi ble based on patient's age to complete this topic IPV Vaccines Aged Out No longer eligi ble based on patient's age to complete this topic Meningococcal B Vaccine Aged Out No l onger eligible based on patient's age to complete this topic Meningococcal Vaccine Aged Out No bebeto dania eligible based on patient's age to complete this topic Rotavirus Vaccines Aged Out No longer eligible based on patient's age to complete this topic Insurance MEDICARE GENERIC OTHER Care Teams Sales Driver Relationship Specialty Start Date End Date Addy Clemente MD [address] [facility] [address] [place], [place] [id number] PCP - General 04/04/22
--- OUTSIDE RECORDS SUMMARY | 2024-10-11 11:52 | XMS_ITS | Clinical Summary ---
Author Organization [facility] Address [address] [place] [address] Care Team Providers Care Bender Helper Name Role Phone Son Sweeney Primary Care Provider [phone] Allergies No known active allergies Medications aspirin, enteric coated (ASPIRIN, ENTERIC COATED) 81 mg EC tablet Take 81 mg by mouth once daily. Active indapamide (LOZOL) 2.5 mg tablet Take 2.5 mg by mouth once daily. Active lisinopril (ZESTRIL, PRINIVIL) 40 mg tablet Take 40 mg by mouth once daily. Active levothyroxine (SYNTHROID) 88 mcg tablet Take 88 mcg by mouth daily before breakfast. Active pravastatin (PRAVACHOL) 80 mg tablet Take 80 mg by mouth once daily. Active Meclizine HCl 25 mg Chew Tab Take by mouth as needed. Active MULTIVIT &MINERALS/FERROU S FUM (MULTI VITAMIN ORAL) Take by mouth once daily. Active CALCIUM CARBONATE (CALTRATE 600 ORAL) Take by mouth once daily. Active amLODIPine (NORVASC) 10 mg tablet Take 1 tablet by mouth once daily. 90 tablet 3 06/12/2015 Active Active Problems Problem Noted Date Diagnosed Date Essential hypertension with goal blood pressure less than 140/90 06/12/2015 Preoperative cardiovascular examination 06/12/19 16 Nonrheumatic aortic valve insufficiency 06/12/19 16 Family History Medical History Relation Comments Heart Brother 2 lupus [Other] Father brain aneurysm [Other] Mother htn [Other] Mother Relation Status Comments Brother 1 Brother 2 Father Mother (Age 65) Social History Tobacco Use Types Packs/Day Years Used Date Smoking Tobacco: Never Smokeless Tobacco: Never Alcohol Use Standard Drinks/Week Comments No 0 (1 standard drink = 0.6 oz pur e alcohol) Comments Unknown Sex and Gender Information Value Date Recorded Sex Assigned at Not on file Legal Sex Female 10:21 AM EST Gender Identity Not on file Sexual Orientation Not on file 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 Not on file Not on file Last Filed Vital Signs Vital Sign Reading Time Taken Comments Blood Pressure 153/73 06/12/2015 9:08 AM EDT Pulse 80 06/12/2015 9:08 AM EDT Temperature 36.8 C (98.2 F) 06/12/2015 9:08 AM EDT Respiratory Rate 14 06/12/2015 9:08 AM EDT Oxygen Saturation 96% 06/12/2015 9:08 AM EDT Inhaled Oxygen Concentration - - Weight 61.3 kg (135 lb 3.2 oz) 06/12/2015 9:08 A M EDT Height 157.5 cm (5' 2 ) 06/12/2015 9:08 AM EDT Body Mass Index 24.73 06/12/2015 9:08 AM EDT Plan of Treatment Health Maintenance Due Date Last Done Comments Anxiety Screening 1953 Depression Screening 1954 DTaP,Tdap,Td Vaccine (1 - Tdap) 11/13/1955 Diabetes Screening 1981 Pneumococcal Vaccine: 50+ (1 of 1 - PCV) 1986 Shingrix Vaccine (1 of 2) 1986 Bone Density Screening 2001 RSV Vaccine (1 - 1-dose 75+ series) 11/13/2011 Advance Directive Discussion 02/21/2024 Influenza Vaccine (#1) 2024 Insurance MEDICARE [facility] Care Teams Bender Helper Relationship Specialty Start Date End Date Son Sweeney DO PCP - General Family Medicine 03/10/14
--- OUTSIDE RECORDS SUMMARY | 2024-10-11 12:00 | XMS_ITS | CCD ---
Author Organization [facility] Care Team Providers Care Hotel Service Manager Name Role Phone PHYSICIAN, DEFAULT Admitting [...] Care Unavailable Calista Aceves Primary Care Provider [phone] CALISTA ACEVES Primary Care Physician [phone] DR VALERIE DARDEN Consulting Unavailable JEREMIAH .DR BOLAÑOS Primary Care Unavailable ADELSO, DR PADILLA Attending Unavailable ADELSO, DR PADILLA Admitting Unavailable HOYousuf .DR BOLAÑOS Primary Care Unavailable LAKSHMIPATHYousuf ., TYLER Attending Kerry vailable LAKSHMIARTEMIO ., [...] HOY ., DR BOLAÑOS Admitting Unavailable MD Mami Daniels Primary Care Provider [phone] DO Camacho Cooper Emergency Provider [facility] Mami Euceda Primary Care Physician VALERIE DARDEN Attending Unavailable LESLY ALANIZ Attending Unavailable CORBIN, LESLY Attending Unavailable MD Mami Daniels Primary Care Provider MD Lucy Lockhart Admit Provider MD Gaudencio Romero Other Provider KAZ Pearce-Dk Wilson Other Provider Unavailable MD Fiona Magana Other Provider MD Cachorro Real Other Provider MD Warner Sood Other Provider MD Boni Choi Other Provider DO Turner Frank Attending Provider MD Turner Nielsen Emergency Provider [phone] MD Mami Daniels Primary Care Provider MD Lucy Lockhart Admit Provider MD Gaudencio Romero Other Provider KAMILA Peacre Other Provider Unavailable MD Fiona Magana Other Provider MD Cachorro Real Other Provider MD Warner Sood Other Provider MD Boni Choi Other Provider DO Turner Frank Attending Provider MD Turner Nielsen Emergency Provider MD Turner Doss Attending Provider Turner DOSS Attending Unavailable Mami Daniels Referring Unavailable Turner DOSS Attending Unavailable Turner DOSS Attending Unavailable MIKAYLA WEISS Attending Unavailable MIKAYLA WEISS Attending Unavailable Mami Daniels MD Primary Care Provider [phone] Niki Owusu MD Attending Provider Mami Daniels MD Attending Provider [phone] Lg Fu DO Attending Provider Mami Daniels MD Primary Care Provider Niki Owusu MD Attending Provider Mami Daniels MD Attending Provider Lg Fu DO Attending Provider [phone] Niki Owusu Admitting Unavailable Niki Owusu Attending Unavailable Hoy, Mami M Primary Care Unavailable Hoy, Mami M Admitting Unavailable Hoy, Mami M Primary Care Unavailable Hoy, Mami M Attending Unavailable Bialrosa, Lg N Admitting Unavailable BialLg lee N Attending Unavailable Hoy, Mami M Primary Care Unavailable Bialaski, Lg N Admitting Unavailable [place], Lg N Attending Unavailable Hoy, Mami M Primary Care Unavailable DaromarHilariodarandy M Attending Unavailable Aaron Cordoba Consulting Unavailable Son Dean Admitting Unavailable Hoy, Mami M Primary Care Unavailable Kristofer Aceves Consulting Unavailable Soo Carvalho Consulting Unavailable [place]ial[place], Lg N Consulting Unavailable Turner Doss Admitting Unavailable Turner Doss Attending Unavailable Unavailable Primary Care Provider Unavailmel Daniels MD, Mami Rios Primary Care Provider YOSI ATKINS Attending Unavailable YOSI ATKINS Attending Unavailable Allergies Allergy Classification Reported Allergen(s) Allergy Type Date of Onset Reaction(s) Facility (17 sources) predniSONE; Translations: [prednisone] Drug Allergy 8 Hives, Eruption of skin (disorder) [place] (2 sources) predniSONE Drug Allergy 7 [facility] Repository (15 sources) atorvastatin; Translations: [atorvastatin] Drug Allergy 3 Unknown (qualifier value), Weal (disorder) [facility] Comment on above: Onset Date: 02/20/19 22 (9 sources) Ibuprofen; Translations: [ibuprofen] Drug Allergy 5 Unknown (qualifier value), Stomach ache (finding), GI intolerance, Unknown [facility] (11 sources) Corticosteroids; Translations: [Corticosteroids (Glucocorticoids )] Allergy to substance 3 Unknown Reaction [facility] Comment on above: Onset Date: 02/27/19 18 (1 source) atorvastatin Drug Allergy 5 [facility] Repository (1 source) predniSONE Drug Allergy 5 [facility] Repository (5 sources) atorvastatin Drug Allergy 3 Hives [facility] Healthcare Work Phone: (5 sources) Prednisone Allergy to substance 8 Hives, Rash [facility] Healthcare (5 sources) Wound Dressing Adhesive Propensity to adverse reactions 5 [facility] Medications Current Medications Medication Drug Class(es) Dates [...] / HYDROcodone bitartrate 5 mg oral tablet (7 sources) Opioid Agonist Start: 01-25-2024 take 1 tablet by mouth every eight hours as needed for pain Hydrocodone-Acetami nophen 5-325 mg Tablet Active 1 TAB PO Every 8 hours as needed for Pain 15 January 25, 2024 acetaminophen 325 mg / [...] (2.5 M G/3ML) 0.083% nebulizer solution amLODIPine 5 mg oral tablet (20 sources) Dihydropyridine Calcium Channel Yadira Start: 05-06-2024 take 1 tablet by mouth once daily amLODIPine (Norvasc) 5 MG tablet Take 5 mg by mouth Daily 05/06/2024 Active Start: 08-06-2018 End: 04-06-2023 take 1 tablet by mouth once daily Amlodipine (Norvasc) 10 mg Tablet Active 1 TAB PO Daily April 06, 2023 1:04pm aspirin 81 mg oral capsule (16 sources) Platelet Aggregation Inhibitor, Nonsteroidal Anti-inflammatory Drug [...] Antibacterial, Polymyxin-class Antibacterial Start: 11-16-2018 End: 11-18-2018 aqhghcpm-fghybjslmi-arbwqyhw n (NEOSPORIN) ointment carvedilol 25 mg oral tablet (15 sources) alpha-Adrenergic Yadira, beta-Adrenergic Yadira Start: 06-04-2024 take 1 tablet by mouth twice daily at mealtime carvedilol (Coreg) 25 MG tablet TAKE 1 TABLET BY MOUTH TWICE A DAY WITH FOOD FOR 90 DAYS 06/04/2024 Active Start: 01-23-2024 take 1 tablet by neil th once daily Carvedilol 12.5 mg tablet Active 12.5 MG PO Daily January 23, 2024 1:00am Start: 05-03-2023 take 1 tablet by neil th twice daily carvedilol 6.25 mg Tab 6.25 mg = 1 tab(s), Oral, BID, Refills(s) 0 Start Date: 05/03/23 Status: Ordered Start: 08-10-2022 carvedilol Ora l Start Date: 08/10/22 Status: Ordered cinnamon oil liquid 1 drop (1 source) Start: 11-15-2018 cinnamon oil liquid 1 drop citalopram 20 mg oral tablet (14 sources) Serotonin Reuptake Inhibitor Start: 07-07-2024 take 1 tablet by mouth in the morning citalopram (CeleXA) 20 MG tablet Take 20 mg by mouth in the morning. 07/07/2024 Active Start: 01-23-2024 [facility] Cital[facility]ram 20 mg tablet Active 20 MG PO Daily January 23, 2024 1:00am Start: 04-19-2023 [facility] CeleXA 10 mg Tab 10 mg = 1 tab(s), Oral, Daily, Refills(s) 0 Start Date: 04/19/23 Status: Ordered docusate sodium 100 mg oral capsule (8 sources) Start: 01-25-2024 take 1 capsule by mo [facility] twice daily as needed for constipation Docusate Sodium 100 mg Capsule Active 100 MG PO Twice daily as needed for Constipation January 25, 2024 1:00am Start: 11-15-2018 take 100 mg by mouth [...] 600 mg irbesartan 300 mg oral tablet (12 sources) Angiotensin 2 Receptor Yadira Start: 07-08-2024 take 1 tablet by mouth once daily irbesartan (Avapro) 300 MG tablet TAKE 1 TABLET BY MOUTH EVERY DAY FOR 90 DAYS 07/08/2024 Active Start: 01-23-2024 take 1 tablet by neil th once daily Irbesartan 300 mg tablet Active 300 MG PO Daily January 23, 2024 1:00am lactulose 667 mg/ml oral solution (1 source) Osmotic Laxative Start: 11-17-2018 lactulose (CHRONULAC) 10 GM/15ML solution 20 g levothyroxine sodium 0.088 mg oral tablet (20 sources) l-Thyroxine Start: 08-09-2022 take 1 tablet [...] Discharge) losartan potassium 100 mg oral tablet (18 sources) Angiotensin 2 Receptor Yadira Start: 11-16-2018 take 100 mg by mouth once daily 100 mg, Oral, DAILY, First dose on Mon11/16/18 at 0900 Start: 11-05-2018 losartan (COZA AR) tablet 100 mg Start: 08-06-2018 End: 01-23-2024 take 1 tablet by mouth once daily Losartan 100 mg Tablet Discontinued 1 TAB PO Daily August 06, 2018 12:00am January 23, 2024 1:30am magnesium oxide 400 mg oral tablet (17 sources) Start: 03-05-2024 take 1 tablet by mouth three times daily as needed magnesium oxide (Mag-Ox) 400 MG tablet Take 1 tablet by mouth 3 (three) times a day as needed 03/05/2024 Active Start: 04-19-2023 take 1 tablet by neil th three times daily magnesium oxide 400 mg Tab 400 mg = 1 tab(s), Oral, TID, Refills(s) 0 Start Date: 04/19/23 Status: Ordered Start: 04-02-2023 take 1 tablet by neil th twice daily as needed for constipation Magnesium Oxide 400 mg (241.3 mg magnesium) tablet Active 400 MG PO Twice daily as needed for constipation April 02, 2023 1:00am 1 ml morphine sulfate 4 mg/ml cartridge (2 sources) Opioid Agonist Start: 11-04-2018 morphine injec tion 4 mg Start: 11-04-2018 End: 11-04-2018 morphine (PF) injection 4 mg ondansetron 4 mg oral tablet (13 sources) Serotonin-3 Receptor Antagonist Start: 08-05-2022 take 1 tablet by mouth once daily as needed for nausea and vomiting Ondansetron Hcl 4 mg tablet Active 4 MG PO Daily as needed for nausea and vomiting 5 5 August 05, 2022 12:00am Start: 11-05-2018 4 mg, Intraven ous, EVERY 6 HOURS PRN, Nausea, Starting 11/05/18 at 1830 Start: 11-04-2018 End: 11-04-2018 ondansetron (ZOFRAN) injecti on 4 mg pantoprazole 40 mg delayed release oral tablet (12 sources) Proton Pump Inhibitor Start: 04-04-2023 take 1 tablet by mouth once daily Pantoprazole 40 mg tablet,delayed release (DR/EC) Active 40 MG PO Daily at 0630 April 04, 2023 1:00am polyethylene glycol 3350 85872 mg powder for oral solution (1 source) Osmotic Laxative Start: 11-15-2018 polyethylene glycol (GLYCOLAX) packet 17 g Potassium Chloride (20 sources) Start: 08-10-2022 Potassium Chlo ride (Cgp-Kgbq-Uhh 10) 20 mEq, Oral, TID Start Date: 08/10/22 Status: Ordered Start: 08-10-2022 Potassium Chlo ride (Dsy-Gnre-Nqo 10) mEq, Oral, BID Start Date: 08/10/22 [...] 1 TAB PO Three times daily August 06, 2018 12:00am Start: 08-06-2018 take 1 tablet by neil th once daily Potassium Chloride (Klor-Con M20) 20 mEq Tablet,Er Particles/Crystals Active 1 TAB PO Daily August 06, 2018 12:00am pravastatin sodium 80 mg oral tablet (20 sources) HMG-CoA Reductase Inhibitor Start: 08-06-2018 take 1 tablet by mouth once daily Pravastatin 80 mg Tablet Active 1 TAB PO Daily August 06, 2018 12:00am sennosides, assisted 8.6 mg oral tablet (1 source) Start: [...] Sig (Original) cephalexin 500 mg oral capsule (14 sources) Cephalosporin Antibacterial Start: 08-05-2022 End: 04-02-2023 [...] procedure, # 2 tab(s), Refills(s) 0, Pharmacy: [facility], 155, cm, 08/10/22 9:03:00 EDT, Height/Length Dosing, 65, kg, 08/10/22 9:03:00 EDT, Weight Dosing Start Date: 08/30/22 Status: Ordered gadoteridol (PROHANCE) injection 15 mL (1 source) Start: 11-05-2018 End: 11-05-2018 gadoteridol (PROHANCE) injection 15 mL hydroCHLOROthiazide 25 mg oral tablet (11 sources) Thiazide Diuretic Start: 04-02-2023 End: 04-06-2023 [...] 11/19/2018 Discontinued naproxen 500 mg oral tablet (11 sources) Nonsteroidal Anti-inflammatory Drug Start: 08-05-2022 End: 04-02-2023 take 1 tablet by mouth twice daily as needed for pain Naproxen (Naprosyn) 500 mg tablet Discontinued 500 MG PO Twice daily as needed for pain 10 August 05, 2022 12:00am April 02, 2023 7:53pm oxyCODONE hydrochloride 5 mg oral tablet (11 sources) Opioid Agonist Start: 08-05-2022 End: 04-02-2023 [...] mEq tamsulosin hydrochloride 0.4 mg oral capsule (11 sources) alpha-Adrenergic Yadira Start: 08-05-2022 End: 04-02-2023 [...] Problem Date Documented Date Episodic/Chronic Abdominal pain (11 sources) Abdominal pain; Translations: [Unspecified abdominal pain] 08-05-2022 Episodic Comment on above: Problem List clean-u p per request of Phys. EHR Cmte Acute and unspecified renal failure (13 sources) Acute renal failure syndrome; Translations: [Acute kidney failure, unspecified] Onset: 01-24-2024 02-02-2024 Episodic Calculus of urinary tract (14 sources) Kidney stone; Translations: [Calculus of kidney] 08-05-2022 Episodic Comment on above: Problem List clean-u p per request of Phys. EHR Cmte Cardiac dysrhythmias (3 sources) Atrial fibrillation 08-10-2022 Chronic Conduction disorders (2 sources) Right bundle branch block 04-19-2023 Chronic Diseases of white blood cells (14 sources) Elevated white blood cell count, unspecified; Translations: [Leukocytosis] Onset: 12-31-2021 02-02-2024 Chronic Disorders of lipid metabolism (12 sources) Pure hypercholesterolemia, unspecified; Translations: [Hyperlipidemia, unspecified] Onset: 08-06-2021 Chronic E Codes: Fall (13 sources) Fall in home; Translations: [Unspecified fall, initial encounter] Onset: 01-24-2024 02-02-2024 Episodic Essential hypertension (20 sources) Essential (primary) [...] Chronic Hypertension with complications and secondary hypertension (15 sources) Hypertensive heart disease without heart failure; Translations: [Hypertensive urgency ] Onset: 04-04-2022 Chronic Mycoses (2 sources) Onychomycosis; Translations: [Tinea unguium] 08-07-2024 Episodic Nausea and vomiting (12 sources) Nausea; Translations: [Nausea and vomiting] Onset: [...] Osteoarthritis (3 sources) Arthritis 08-10-2022 Chronic Other connective tissue disease (4 sources) Pain of toe of left foot; Translations: [Pain in left toe(s)] 07-24-2024 Episodic Other connective tissue disease (2 sources) Pain of toe of right foot; Translations: [Pain in right toe(s)] 08-07-2024 Episodic Other diseases of kidney and ureters (4 sources) Hydronephrosis; Translations: [Unspecified hydronephrosis] Onset: 12-19-2022 Episodic Other diseases of kidney and ureters (3 sources) 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 Other ear and sense organ disorders (3 sources) Hearing loss 08-10-2022 Chronic Other fractures (7 sources) Fracture of fifth cervical vertebra; Translations: [Unspecified displaced fracture of fifth cervical vertebra, initial encounter for closed fracture] 02-02-2024 Episodic Other fractures (6 sources) Unspecified displaced fracture of fifth cervical vertebra, initial encounter for closed fracture; Translations: [Closed fracture of fifth cervical vertebra] Onset: 03-01-2024 01-24-2024 Episodic Other fractures (5 sources) Fracture of cervical spine; Translations: [Fracture of neck, unspecified, initial encounter] 03-06-2024 Episodic Other fractures (9 sources) Fracture of neck, unspecified, initial encounter; Translations: [Closed fracture of cervical vertebra, unspecified level] Onset: 04-13-2024 03-06-2024 Episodic Other injuries and conditions due [...] [Abnormal electrocardiogram (ECG) (EKG)] Onset: 01-11-2023 Episodic Other skin disorders (4 sources) Ingrowing nail; Translations: [Ingrowing nail] 07-24-2024 Episodic Skin and subcutaneous tissue infections (4 sources) Abscess of toe of left foot; Translations: [Cutaneous abscess of left foot] 07-24-2024 Episodic Spondylosis; intervertebral disc disorders; other back problems (1 source) Lumbar spondylosis; Translations: [Lumbar spondylosis] Onset: 11-13-2018 11-13-2018 Chronic Syncope (16 sources) Vasovagal syncope; Translations: [Syncope] Onset: 04-04-2022 [...] Translations: [Impaired mobility] Onset: 11-15-2018 11-15-2018 Episodic E Codes: Place of occurrence (1 source) Unspecified place in unspecified non-institutional (private) residence as the place of occurrence of the external cause; Translations: [Unspecified place in unspecified non-institutional (private) residence as the place of occurrence of the external cause] Onset: 01-24-2024 Episodic Genitourinary symptoms and ill-defined conditions (1 source) Personal history of urinary (tract) infections; Translations: [PERS HX URINARY TRACT INFECTIONS] Onset: 12-31-2021 Episodic Malaise and fatigue (1 source) Weakness; Translations: [WEAKNESS] Onset: 12-31-2021 Episodic 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 source) long term (current) use of aspirin; Translations: [LOG OPERATIONS COORDINATOR CURRENT USE OF ASPIRIN] Onset: 12-31-2021 Episodic 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 source) Other assisted (current) drug therapy; Translations: [OTH LOG OPERATIONS COORDINATOR CURRENT DRUG THERAPY] Onset: 12-31-2021 Episodic Other fractures (1 source) Other nondisplaced fracture of fifth cervical vertebra, initial encounter for closed fracture; Translations: [Other nondisplaced fracture of fifth cervical vertebra, initial encounter for closed fracture] Onset: 01-24-2024 Episodic Residual codes; unclassified (2 sources) Localized edema; Translations: [Localized edema] Onset: 04-04-2022 Episodic Spondylosis; intervertebral disc disorders; other back problems (10 sources) Lumbar radiculopathy; Translations: [Intractable low back pain] Onset: 11-04-2018 11-04-2018 Episodic Unclassified (3 sources) Long-term current use of aspirin 08-10-2022 Unclassified (1 source) Other ventricular tachycardia; Translations: [Other ventricular tachycardia] Onset: 01-11-2023 Results Test Name Value Interpretation Reference Range Facility XR cerv spine AP/LAT/FLX/EXT on 04-30-2024 XR cerv spine AP/LAT/FLX/EXT [facility] [place] [address] CT Scan Report Signed Patient: Hiram Madrid MR#: [id number] : 1935 Acct:[id number] Age/Sex: 88 / F ADM Date: 04/30/24 Loc: CT Room: Type: [facility] Attending Dr: Lg Fu DO Copies to: Lg Fu DO Ordering Provider: Lg Fu DO Date of Service: 04/30/24 CT/CT cervical spine wo con: S12.9XXA - Fracture of neck, unspecified, initial encounter ([id number]) XR/XR cerv spine AP/LAT/FLX/EXT: S12.9XXA - Fracture of neck, unspecified, initial encounter CT CERVICAL SPINE WITHOUT CONTRAST WITH 3D RECONSTRUCTIONS 4 VIEWS OF THE CERVICAL SPINE: CLINICAL HISTORY: Fracture of cervical vertebral COMPARISON: CT 01/22/2024 TECHNIQUE: Spiral axial unenhanced images were obtained through the cervical spine. Sagittal, coronal and 3D volume-rendered reconstructions were also reviewed. This CT exam was performed using one or more following dose reduction techniques: Automated exposure control, adjustment of the mA and/or kV according to patient size, or use of iterative reconstruction technique. FINDINGS: Mild reversal normal cervical lordosis. Severe disc space narrowing C5-6. Moderate severe disc space narrowing C6-7. Moderate degenerative disc space narrowing C3-C5. Multilevel facet arthropathy. Multilevel discogenic complex formation and intervertebral spurring cause central canal and foraminal narrowing findings most pronounced C5-C6 on the right with moderate severe canal narrowing and moderate severe right neural foraminal narrowing. There is moderate left neural foraminal narrowing identified at C5-6.. There is severe left-sided neural from narrowing C3-C4. Otherwise moderate neural foraminal and Moderate central canal identified elsewhere There is redemonstration of the well-corticated lucency involving the anterior inferior endplate of C5. No fracture or malalignment identified elsewhere within the cervical spine. No prevertebral soft tissue swelling. Carotid vascular calculations noted. X-rays of the cervical spine demonstrate reversal normal lordosis. There is minimal anterolisthesis C3-C4 1 mm. Multilevel predominantly left-sided facet arthropathy. On flexion extension imaging no definite movement of the fracture fragments or pathologic motion on flexion and extension imaging CT/CT cervical spine wo con IMPRESSION: Healing fracture involving the anterior inferior endplate of C5. Moderate severe degenerative changes notably C5-C6 on the right. Impression dictated by: Chris Munguia M.D.04/30/2024 3:03 PM Dictation Location: [place] [address] Transcribed By: [facility] 04/30/24 150 Dictated By: Chris Munguia MD 04/30/24 1454 Signed By: 04/30/24 [id number] Normal [facility] X-ray reportOrdered By: Angelo Winchester on 04-12-2024 Study report [facility] [address] [address] XRay Report Signed Patient: Hiram Madrid MR#: [id number] : 1935 Acct:[id number] Age/Sex: 88 / F ADM Date: 5 Loc: XD Room: Type: PRE CLI Attending Dr: Lg Fu DO Copies to: Lg Fu DO~ Ordering Provider: Lg Fu DO Date of Service: 04/12/24 XR/XR cervical spine 2V: S12.9XXA - Fracture of neck,unspecified, initial encounter XR cervical spine 2V 04/12/2024 2:14 PM SIGNS AND SYMPTOMS: Recent C5 fracture, follow-up PROTOCOLS: Frontal and lateral radiograph of the cervical spine COMPARISON: 03/01/2024 FINDINGS: The bones are in anatomic alignment. There is preservation of the vertebral bodyheights. There is moderate severe disc height loss at C5-C6 with mild disc height loss at C6-C7 and C7-T1. There is facet hypertrophy throughout. Their is a healing fracture along the anterior inferior corner at C5 which is unchanged in alignment. Atherosclerotic changes are present in the thoracic aorta. XR/XR cervical spine 2V IMPRESSION: Their is a healing fracture along the anterior inferior corner at C5 which is unchanged in alignment. Multilevel degenerative changes noted as above. Impression dictated by: Angelo Winchester M.D.04/12/2024 9:08 PM Dictation Location: [place] [address] Transcribed By: [facility] 04/12/242107 Dictated By: Angelo Winchester II, MD 04/12/242105 Signed By: 04/12/242107 [facility] Work Phone: XR cervical spine 2Von 04-12 XR cervical spine 2V [facility] [place] [address] [place] [address] XRay Report Signed Patient: Hiram Madrid MR#: [id number] : 1935 Acct:[id number] Age/Sex: 88 / F ADM Date: 04/12/24 Loc: XD Room: Type: PRE CLI Attending Dr: Lg Fu DO Copies to: Lg Fu DO Ordering Provider: Lg Fu DO Date of Service: 04/12/24 XR/XR cervical spine 2V: S12.9XXA - Fracture of neck, unspecified, initial encounter XR cervical spine 2V 04/12/2024 2:14 PM SIGNS AND SYMPTOMS: Recent C5 fracture, follow-up PROTOCOLS: Frontal and lateral radiograph of the cervical spine COMPARISON: 03/01/2024 FINDINGS: The bones are in anatomic alignment. There is preservation of the vertebral body heights. There is moderate severe disc height loss at C5-C6 with mild disc height loss at C6-C7 and C7-T1. There is facet hypertrophy throughout. Their is a healing fracture along the anterior inferior corner at C5 which is unchanged in alignment. Atherosclerotic changes are present in the thoracic aorta. XR/XR cervical spine 2V IMPRESSION: Their is a healing fracture along the anterior inferior corner at C5 which is unchanged in alignment. Multilevel degenerative changes noted as above. Impression dictated by: Angelo Winchester M.D.04/12/2024 9:08 PM Dictation Location: [place] [address] Transcribed By: [facility] 04/12/242107 Dictated By: Angelo Winchester II, MD 04/12/242105 Signed By: 04/12/242107 Normal [facility] Alanine aminotransferase [En zymatic activity/volume] in Serum or PlasmaOrdered By: Mami Daniels on 03-25-2024 ALT [Catalytic activity/Vol] Alanine aminotransferase [Enzymatic activity/volume] in Serum or Plasma 7-52 [facility] Albumin [Mass/volume] in Ser um or Plasma by Bromocresol green (BCG) dye binding methoOrdered By: Mami Daniels on 03-25-2024 Albumin BCG dye [Mass/Vol] Albumin [Mass/volume] in Serum or Plasma by Bromocresol green (BCG) dye binding metho 3.5-5.7 [facility] Alkaline phosphatase [Enzyma tic activity/volume] in Serum or PlasmaOrdered By: Mami Daniels on 03-25-2024 ALP [Catalytic activity/Vol] Alkaline phosphatase [Enzymatic activity/volume] in Serum or Plasma 34-104 [facility] Aspartate aminotransferase [ Enzymatic activity/volume] in Serum or PlasmaOrdered By: Mami Daniels on 03-25-2024 AST [Catalytic activity/Vol] Aspartate aminotransferase [Enzymatic activity/volume] in Serum or Plasma 13-39 [facility] Basophils Auto (Bld) [#/Vol] Ordered By: Mami Daniels on 03-25-2024 Basophils (Bld) [#/Vol] Automated basoph il count 0.0-0.2 [facility] Basophils/100 WBC Auto (Bld) Ordered By: Mami Daniels on 03-25-2024 Basophils/100 WBC (Bld) Automated basoph il % . [facility] Bilirubin.total [Mass/volume ] in Serum or PlasmaOrdered By: Mami Daniels on 03-25-2024 Bilirubin [Mass/Vol] Bilirubin.total [Mass/volume] in Serum or Plasma 0.3-1.0 [facility] Calcium [Mass/volume] in Ser um or PlasmaOrdered By: Mami Daniels on 03-25-2024 Calcium [Mass/Vol] Calcium [Mass/volume] in Serum or Plasma Low 8.6-10.3 [facility] Carbon dioxide, total [Moles /volume] in Serum or PlasmaOrdered By: Mami Daniels on 03-25-2024 CO2 [Moles/Vol] Carbon dioxide, total [Moles/volume] in Serum or Plasma 21.0-31.0 [facility] Chloride [Moles/volume] in S willa or PlasmaOrdered By: Mami Daniels on 03-25-2024 Chloride [Moles/Vol] Chloride [Moles/volume] in Serum or Plasma Low 98-107 [facility] Complete Blood Count Auto Di ffon 03-25-2024 Basophils (Bld) [#/Vol] 0.0 10*3/uL Normal 0.0-0.2 [facility] Comment on above: Result Comment: PERF ORMED BY: [facility] [address] [place] [address] PATHOLOGIST STUDIO TECHNICIAN VIDEO OPERATOR SHERLYN BUSTILLO M.D. Performed By: #### C BC, CMP ####[address] Basophils/100 WBC (Bld) 0.7 % Normal . T babatunde [facility] Comment on above: Performed By: #### C BC, CMP ####[address] Eosinophils (Bld) [#/Vol] 0.0 10*3/uL Normal 0.0-0.45 [facility] Comment on above: Performed By: #### C BC, CMP ####[address] Eosinophils/100 WBC (Bld) 0.1 % Normal . [facility] Comment on above: Performed By: #### C BC, CMP ####[address] Erythrocyte distribution width (RBC) [Ratio] 14.6 % Normal 11.9-15.3 [facility] Comment on above: Performed By: #### C BC, CMP ####[address] Hematocrit (Bld) [Volume fraction] 35.5 % Normal 34.0-46.4 [facility] Comment on above: Performed By: #### C BC, CMP ####[address] Hemoglobin (Bld) [Mass/Vol] 12.6 g/dL Normal 11.8-15.4 [facility] Comment on above: Performed By: #### C BC, CMP ####[address] Lymphocytes (Bld) [#/Vol] 1.7 10*3/uL Normal 1.00-4.8 [facility] Comment on above: Performed By: #### C BC, CMP ####[address] Lymphocytes/100 WBC (Bld) 43.1 % Normal . [facility] Comment on above: Performed By: #### C BC, CMP ####[address] [place] [address] [place] MCH (RBC) [Entitic mass] 32.5 pg Normal 24.7-34.3 [facility] Comment on above: Performed By: #### C TIFFANIE, CMP ####[address] MCV (RBC) [Entitic vol] 91.8 fL Normal 80-100 T [facility] Comment on above: Performed By: #### C TIFFANIE, CMP ####[address] Mean Corpuscular HGB Conc 35.4 g/dL High 32.0-35.0 [facility] Comment on above: Performed By: #### C TIFFANIE, CMP ####[address] Monocytes (Bld) [#/Vol] 0.5 10*3/uL Normal 0.0-0.8 [facility] Comment on above: Performed By: #### C TIFFANIE, CMP ####[address] Monocytes/100 WBC (Bld) 11.9 % Normal . [facility] Comment on above: Performed By: #### C TIFFANIE, CMP ####[address] Neutrophils (Bld) [#/Vol] 1.8 10*3/uL Normal 1.8-7.7 [facility] Comment on above: Performed By: #### C TIFFANIE, CMP ####[address] Neutrophils/100 WBC (Bld) 44.2 % Normal . [facility] Comment on above: Performed By: #### C TIFFANIE, CMP ####[address] NRBC% 0.2 /100{WBC} Normal 0-0.5 [facility] Comment on above: Performed By: #### C TIFFANIE, CMP ####[place] [address] [facility] Platelet mean volume (Bld) [Entitic vol] 7.7 fL Normal 6.3-10.7 [facility] Comment on above: Performed By: #### C BC, CMP ####[address] [address] [facility] Platelets (Bld) [#/Vol] 312 10*3/uL Normal 150-450 [facility] Comment on above: Performed By: #### C BC, CMP ####[place] [id number] [facility] RBC (Bld) [#/Vol] 3.87 10*6/uL Normal 3.60-5.00 The [facility] Comment on above: Performed By: #### C BC, CMP ####[place] [id number] [facility] WBC (Bld) [#/Vol] 4.0 10*3/uL Normal 3.8-11.6 The [facility] Comment on above: Performed By: #### C BC, CMP ####[address] [address] [facility] Comprehensive Metabolic Pane carlos 03-25-2024 Albumin [Mass/Vol] 3.6 g/dL Normal 3.5-5.7 [facility] Comment on above: Performed By: #### C BC, CMP ####[place] [id number] [facility] Albumin/Globulin [Mass ratio] 1.6 {ratio} Normal [facility] Comment on above: Performed By: #### C BC, CMP ####[place] [id number] [facility] ALP [Catalytic activity/Vol] 55 U/L Normal 34-104 [facility] Comment on above: Result Comment: PERF ORMED BY: [facility] [address] [place] [id number] PATHOLOGIST STUDIO TECHNICIAN VIDEO OPERATOR SHERLYN BUSTILLO M.D. Performed By: #### C BC, CMP ####[address] [place] [address] [place] ALT [Catalytic activity/Vol] 14 U/L Normal 7-52 [facility] Comment on above: Performed By: #### C BC, CMP ####[address] Anion gap [Moles/Vol] 11.3 mmol/L Normal 6.0-15.0 Th e [facility] Comment on above: Performed By: #### C BC, CMP ####[address] AST [Catalytic activity/Vol] 25 U/L Normal 13-39 [facility] Comment on above: Performed By: #### C BC, CMP ####[address] Bilirubin [Mass/Vol] 0.4 mg/dL Normal 0.3-1.0 [facility] Comment on above: Performed By: #### C BC, CMP ####[address] Calcium [Mass/Vol] 8.5 mg/dL Low 8.6-10.3 [facility] Comment on above: Performed By: #### C BC, CMP ####[address] Chloride [Moles/Vol] 93 mmol/L Low 98-107 [facility] Comment on above: Performed By: #### C BC, CMP ####[address] CO2 [Moles/Vol] 26.6 mmol/L Normal 21.0-31.0 The [facility] Comment on above: Performed By: #### C BC, CMP ####[address] Creatinine [Mass/Vol] 0.87 mg/dL Normal 0.60-1.20 [facility] Comment on above: Performed By: #### C BC, CMP ####[address] GFR/1.73 sq M.predicted MDRD (S/P/Bld) [Vol rate/Area] mL/min/{1.73_m2} Normal [facility] Comment on above: Performed By: #### C BC, CMP ####[place] [id number] [facility] Globulin (S) [Mass/Vol] 2.3 g/dL Normal T he [facility] Comment on above: Performed By: #### C BC, CMP ####[place] [id number] [facility] Glucose [Mass/Vol] 105 mg/dL High 70-100 The [facility] Comment on above: Result Comment: [facility] Glucose Reference Range is dependent on time and content of last meal. Glucose of more than 200 mg/dL in a nonstressed, ambulatory subject supports the diagnosis of Diabetes Mellitus. ADA recommended reference range Performed By: #### C BC, CMP ####[address] Potassium [Moles/Vol] 3.9 mmol/L Normal 3.5-5.1 [facility] Comment on above: Performed By: #### C BC, CMP ####[address] Protein [Mass/Vol] 5.9 g/dL Low 6.4-8.9 The [facility] Comment on above: Performed By: #### C BC, CMP ####[place] [id number] [facility] Sodium [Moles/Vol] 127 mmol/L Low 136-145 [facility] Comment on above: Performed By: #### C BC, CMP ####[place] [id number] [facility] Urea nitrogen [Mass/Vol] 12 mg/dL Normal 7-25 [facility] Comment on above: Performed By: #### C BC, CMP ####[place] [id number] [facility] Creatinine [Mass/volume] in Serum or PlasmaOrdered By: Mami Daniels on 03-25-2024 Creatinine [Mass/Vol] Creatinine [Mass/volume] in Serum or Plasma 0.60-1.20 [facility] Eosinophils Auto (Bld) [#/Vo l]Ordered By: Mami Daniels on 03-25-2024 Eosinophils (Bld) [#/Vol] Automated eosinophil count 0.0-0.45 [facility] Eosinophils/100 WBC Auto (Bl d)Ordered By: Mami Daniels on 03-25-2024 Eosinophils/100 WBC (Bld) Automated eosinophil % . [facility] Erythrocyte distribution wid th Auto (RBC) [Ratio]Ordered By: Mami Daniels on 03-25-2024 Erythrocyte distribution width (RBC) [Ratio] Erythrocyte distribution width [Ratio] by Automated count 11.9-15.3 [facility] Globulin Calc (S) [Mass/Vol] Ordered By: Mami Daniels on 03-25-2024 Globulin (S) [Mass/Vol] Serum globulin measurement by calculation (mass/volume) [facility] Glucose [Mass/volume] in Ser um or PlasmaOrdered By: Mami Daniels on 03-25-2024 Glucose [Mass/Vol] Glucose [Mass/volume] in Serum or Plasma High 70-100 [facility] Comment on above: ADA recommended refe rence rangeRandom Glucose Reference Range is dependent on time and content of last meal. Glucose of more than 200 mg/dL in a nonstressed, ambulatory subject supports the diagnosis of Diabetes Mellitus. Hematocrit Auto (Bld) [Volum e fraction]Ordered By: Mami Daniels on 03-25-2024 Hematocrit (Bld) [Volume fraction] Hematocrit [Volume Fraction] of Blood by Automated count 34.0-46.4 [facility] Hemoglobin [Mass/volume] in BloodOrdered By: Mami Daniels 03-25-2024 Hemoglobin (Bld) [Mass/Vol] Hemoglobin [Mass/volume] in Blood 11.8-15.4 [facility] Leukocytes [#/volume] correc sofiya for nucleated erythrocytes in Blood by Automated counOrdered By: Mami Daniels 03-25-2024 WBC corrected for nucl RBC Auto (Bld) [#/Vol] Leukocytes [#/volume] corrected for nucleated erythrocytes in Blood by Automated coun 3.8-11.6 [facility] Lymphocytes Auto (Bld) [#/Vo l]Ordered By: Mami Daniels on 03-25-2024 Lymphocytes (Bld) [#/Vol] Lymphocytes [#/volume] in Blood by Automated count 1.00-4.8 [facility] Lymphocytes/100 WBC Auto (Bl d)Ordered By: Mami Daniels on 03-25-2024 Lymphocytes/100 WBC (Bld) Lymphocytes/100 leukocytes in Blood by Automated count . [facility] MCH Auto (RBC) [Entitic mass ]Ordered By: Mami Daniels on 03-25-2024 MCH (RBC) [Entitic mass] MCH [Entitic ma ss] by Automated count 24.7-34.3 [facility] MCHC Auto (RBC) [Mass/Vol]Or dered By: Mami Daniels on 03-25-2024 MCHC (RBC) [Mass/Vol] MCHC [Mass/volume] by Automated count High 32.0-35.0 [facility] MCV Auto (RBC) [Entitic vol] Ordered By: Mami Daniels on 03-25-2024 MCV (RBC) [Entitic vol] MCV [Entitic volume] by Automated count 80-100 [facility] Monocytes Auto (Bld) [#/Vol] Ordered By: Mami Daniels on 03-25-2024 Monocytes (Bld) [#/Vol] Automated blood monocyte count 0.0-0.8 [facility] Monocytes/100 WBC Auto (Bld) Ordered By: Mami Daniels on 03-25-2024 Monocytes/100 WBC (Bld) Automated monocy te % . [facility] Neutrophils Auto (Bld) [#/Vo l]Ordered By: Mami Daniels on 03-25-2024 Neutrophils (Bld) [#/Vol] Neutrophils [#/volume] in Blood by Automated count 1.8-7.7 [facility] Neutrophils/100 WBC Auto (Bl d)Ordered By: Mami Daniels on 03-25-2024 Neutrophils/100 WBC (Bld) Automated neutrophil % . [facility] No Panel InformationOrdered By: Mami Daniels on 03-25-2024 Estimated GFR (CKD-EPI) > 60.0 mL/Min [facility] Creatinine Clearance (Chem N/A [facility] Nucleated erythrocytes [Pres ence] in Blood by Automated countOrdered By: Mami Daniels on 03-25-2024 Nucleated RBC Auto Ql (Bld) Nucleated erythrocytes [Presence] in Blood by Automated count 0-0.5 [facility] Platelet mean volume Auto (B ld) [Entitic vol]Ordered By: Mami Daniels on 03-25-2024 Platelet mean volume (Bld) [Entitic vol] Platelet mean volume [Entitic volume] in Blood by Automated count 6.3-10.7 [facility] Platelets Auto (Bld) [#/Vol] Ordered By: Mami Daniels on 03-25-2024 Platelets (Bld) [#/Vol] Platelets [#/volume] in Blood by Automated count 150-450 [facility] Potassium [Moles/volume] in Serum or PlasmaOrdered By: Mami Daniels on 03-25-2024 Potassium [Moles/Vol] Potassium [Moles/volume] in Serum or Plasma 3.5-5.1 [facility] Protein [Mass/volume] in Ser um or PlasmaOrdered By: Mami Daniels on 03-25-2024 Protein [Mass/Vol] Protein [Mass/volume] in Serum or Plasma Low 6.4-8.9 [facility] RBC Auto (Bld) [#/Vol]Ordere d By: Mami Daniels on 03-25-2024 RBC (Bld) [#/Vol] Erythrocytes [#/volume] in Blood by Automated count 3.60-5.00 [facility] Serum or plasma albumin/glob ulin mass ratioOrdered By: Mami Daniels on 03-25-2024 Albumin/Globulin [Mass ratio] Serum or plasma albumin/globulin mass ratio [facility] Serum or plasma anion gap de terminationOrdered By: Mami Daniels on 03-25-2024 Anion gap [Moles/Vol] Serum or plasma anion gap determination 6.0-15.0 [facility] Sodium [Moles/volume] in Ser um or PlasmaOrdered By: Mami Daniels on 03-25-2024 Sodium [Moles/Vol] Sodium [Moles/volume] in Serum or Plasma Low 136-145 [facility] Urea nitrogen [Mass/volume] in Serum or PlasmaOrdered By: Mami Daniels on 03-25-2024 Urea nitrogen [Mass/Vol] Urea nitrogen [Mass/volume] in Serum or Plasma 7-25 [facility] WBC Auto (Bld) [#/Vol]Ordere d By: Mami Daniels on 03-25-2024 WBC (Bld) [#/Vol] Leukocytes [#/volume] in Blood by Automated count 3.8-11.6 [facility] X-ray reportOrdered By: Chirag Munguia on 03-01-2024 Study report [facility] [place] [address] [place] [address] XRay Report Signed Patient: Hiram Madrid MR#: [id number] : 1935 Acct:[id number] Age/Sex: 88 / F ADM Date: 5 Loc: XD Room: Type: [facility] Attending Dr: Niki Owusu MD Copies to: Niki Owusu MD~ Ordering Provider: Niki Owusu MD Date of Service: 03/01/24 XR/XR cervical spine 2V: f/u C5 fracture CERVICAL SPINE 2 views: CLINICAL HISTORY: C5 fracture, follow-up COMPARISON: CT from [facility] 01/21/2025, MRI cervical spine 01/24/2024 FINDINGS: There is reversal of the normal cervical lordosis. There is is minimal anterolisthesis C3 and C4 and C4-C5 1 to 2 mm. There is minimal retrolisthesis C5 on C6 1 to 2 mm. The fracture fragments at the anterior-inferior endplate ofC5 appears distracted anteriorly and well corticated. [id number] multilevel facet arthropathy. Facet joints are normal in alignment. Overall moderate multilevel disc space narrowing greatest at C5-C6, appearing severe at this level. No prevertebral soft tissue swelling. XR/XR cervical spine 2V IMPRESSION: SLIGHT ANTERIOR DISTRACTION OF THE FRACTURE AT C5.. FRACTURE APPEARS WELL CORTICATED. Impression dictated by: Chris Munguia M.D.03/01/2024 4:16 PM Dictation Location: RADIO-PC-26 Transcribed By: DORETHA 03/01/241615 Dictated By: Chris Munguia MD 03/01/241609 Signed By: 03/01/241615 [facility] Work Phone: XR cervical spine 2Von 03-01 XR cervical spine 2V [facility] [place] [address] XRay Report Signed Patient: Hiram Madrid MR#: [id number] : 1935 Acct:[id number] Age/Sex: 88 / F ADM Date: 03/01/24 Loc: XD Room: Type: [facility] Attending Dr: Niki Owusu MD Copies to: Niki Owusu MD Ordering Provider: Niki Owusu MD Date of Service: 03/01/24 XR/XR cervical spine 2V: f/u C5 fracture CERVICAL SPINE 2 views: CLINICAL HISTORY: C5 fracture, follow-up COMPARISON: CT from [facility] 01/21/2025, MRI cervical spine 01/24/2024 FINDINGS: There is reversal of the normal cervical lordosis. There is is minimal anterolisthesis C3 and C4 and C4-C5 1 to 2 mm. There is minimal retrolisthesis C5 on C6 1 to 2 mm. The fracture fragments at the anterior-inferior endplate of C5 appears distracted anteriorly and well corticated. Dxiqmcen-dk-oakusk multilevel facet arthropathy. Facet joints are normal in alignment. Overall moderate multilevel disc space narrowing greatest at C5-C6, appearing severe at this level. No prevertebral soft tissue swelling. XR/XR cervical spine 2V IMPRESSION: SLIGHT ANTERIOR DISTRACTION OF THE FRACTURE AT C5.. FRACTURE APPEARS WELL CORTICATED. Impression dictated by: Chris Munguia M.D.03/01/2024 4:16 PM Dictation Location: RADIO-PC-26 Transcribed By: DORETHA 03/01/241615 Dictated By: Chris Munguia MD 03/01/241609 Signed By: 01/10/25 1616 [facility] Basic Metabolic Panelon 12-0 Anion gap [Moles/Vol] 10.9 mmol/L Normal 6.0-15.0 e [facility] Comment on above: Performed By: #### B MP, MG, CBCNO #### [facility] [address] Calcium [Mass/Vol] 8.8 mg/dL Normal 8.6-10.3 [facility] Comment on above: Performed By: #### B MP, MG, CBCNO #### [facility] [address] Chloride [Moles/Vol] 97 mmol/L Low 98-107 [facility] Comment on above: Performed By: #### B MP, MG, CBCNO #### [address] CO2 [Moles/Vol] 27.7 mmol/L Normal 21.0-31.0 [facility] Comment on above: Performed By: #### B MP, MG, CBCNO #### [facility] [address] [place] [address] [place] Creatinine [Mass/Vol] 0.84 mg/dL Significan t change down 0.60-1.20 [facility] Comment on above: Performed By: #### B MP, MG, CBCNO #### [place] [address] [place] Creatinine Clr Calc Pharmacy 41.86 Normal [facility] Comment on above: Result Comment: PERF ORMED BY: [place] [address] PATHOLOGIST STUDIO TECHNICIAN VIDEO OPERATOR SHERLYN BUSTILLO M.D. Performed By: #### B MP, MG, CBCNO #### [place] [address] [place] GFR/1.73 sq M.predicted MDRD (S/P/Bld) [Vol rate/Area] mL/min/{1.73_m2} Normal [facility] Comment on above: Performed By: #### B MP, MG, CBCNO #### [address] Glucose [Mass/Vol] 115 mg/dL High 70-100 [facility] Comment on above: Result Comment: [facility] Glucose Reference Range is dependent on time and content of last meal. Glucose of more than 200 mg/dL in a nonstressed, ambulatory subject supports the diagnosis of Diabetes Mellitus. ADA recommended reference range Performed By: #### B MP, MG, CBCNO #### [address] Potassium [Moles/Vol] 3.6 mmol/L Normal 3.5-5.1 [facility] Comment on above: Performed By: #### B MP, MG, CBCNO #### [address] Sodium [Moles/Vol] 132 mmol/L Low 136-145 [facility] Comment on above: Performed By: #### B MP, MG, CBCNO #### [address] Urea nitrogen [Mass/Vol] 17 mg/dL Normal 7-25 [facility] Comment on above: Performed By: #### B MP, MG, CBCNO #### [address] Hemogram CBC Without Diffon 01-25-2024 Erythrocyte distribution width (RBC) [Ratio] 14.0 % Normal 11.9-15.3 [facility] Comment on above: Performed By: #### B MP, MG, CBCNO #### [address] Hematocrit (Bld) [Volume fraction] 36.1 % Normal 34.0-46.4 [facility] Comment on above: Performed By: #### B MP, MG, CBCNO #### [address] Hemoglobin (Bld) [Mass/Vol] 12.0 g/dL Normal 11.8-15.4 [facility] Comment on above: Performed By: #### B MP, MG, CBCNO #### [facility] [address] MCH (RBC) [Entitic mass] 30.5 pg Normal 24.7-34.3 [facility] Comment on above: Performed By: #### B MP, MG, CBCNO #### [address] MCV (RBC) [Entitic vol] 91.4 fL Normal 80-100 T he [facility] Comment on above: Performed By: #### B MP, MG, CBCNO #### [address] Mean Corpuscular HGB Conc 33.4 g/dL Normal 32.0-35.0 [facility] Comment on above: Performed By: #### B MP, MG, CBCNO #### [address] Platelet mean volume (Bld) [Entitic vol] 7.8 fL Normal 6.3-10.7 [facility] Comment on above: Result Comment: PERF ORMED BY: [place] [address] PATHOLOGIST STUDIO TECHNICIAN VIDEO OPERATOR SHERLYN BUSTILLO M.D. Performed By: #### B MP, MG, CBCNO #### [address] Platelets (Bld) [#/Vol] 385 10*3/uL Normal 150-450 [facility] Comment on above: Performed By: #### B MP, MG, CBCNO #### [address] RBC (Bld) [#/Vol] 3.94 10*6/uL Normal 3.60-5.00 [facility] Comment on above: Performed By: #### B MP, MG, CBCNO #### [address] WBC (Bld) [#/Vol] 12.1 10*3/uL High 3.8-11.6 [facility] Comment on above: Performed By: #### B MP, MG, CBCNO #### [facility] [address] Magnesiumon 01-25-2024 Magnesium [Mass/Vol] 1.7 mg/dL Low 1.9-2.7 [facility] Comment on above: Result Comment: PERF ORMED BY: [place] [address] PATHOLOGIST STUDIO TECHNICIAN VIDEO OPERATOR SHERLYN BUSTILLO M.D. Performed By: #### B MP, MG, CBCNO #### [address] XR cervical spine 2Von 01-24 XR cervical spine 2V [facility] [place] [address] [place] [address] XRay Report Signed Patient: Hiram Madrid MR#: [id number] : 1935 Acct:[id number] Age/Sex: 88 / F ADM Date: 01/24/24 Loc: Room: [address] [place] [address] Type: ADM IN Attending Dr: Niki Owusu [...] Andrea Graf M.D.01/25/2024 10:00 AM Dictation Location: RADIO-PC-23 Transcribed By: DORETHA 01/25/24 1000 Dictated By: HomarAndrea Sánchez GUSMAN 01/25/24 0957 Signed By: 01/25/24 1000 Normal [facility] Basic Metabolic Panelon Anion gap [Moles/Vol] 15.6 mmol/L High 6.0-15.0 Th e [facility] Comment on above: Performed By: #### C KULWINDER, BMP ####[place] [id number] [place] [id number] [facility] Calcium [Mass/Vol] 8.9 mg/dL Normal 8.6-10.3 [facility] Comment on above: Performed By: #### C KULWINDER, BMP ####[place] [id number] [place] [id number] [facility] Chloride [Moles/Vol] 94 mmol/L Low 98-107 [facility] Comment on above: Performed By: #### C KULWINDER, BMP ####[place] [id number] [facility] CO2 [Moles/Vol] 24.6 mmol/L Normal 21.0-31.0 The [facility] Comment on above: Performed By: #### C KULWINDER, BMP ####[place] [id number] [facility] Creatinine [Mass/Vol] 1.55 mg/dL Significan t change up 0.60-1.20 [facility] Comment on above: Performed By: #### C KULWINDER, BMP ####[place] [id number] [facility] Creatinine Clr Calc Pharmacy 22.62 Normal The [facility] Comment on above: Result Comment: PERF ORMED BY: [facility] [address] [place] [id number] PATHOLOGIST STUDIO TECHNICIAN VIDEO OPERATOR SHERLYN BUSTILLO M.D. Performed By: #### C KULWINDER, BMP ####[place] [id number] [place] [id number] [facility] Estimated GFR 32.226 mL/Min Normal The [facility] Comment on above: Performed By: #### C KULWINDER, BMP ####[address] Glucose [Mass/Vol] 121 mg/dL High 70-100 The [facility] Comment on above: Result Comment: [facility] Glucose Reference Range is dependent on time and content of last meal. Glucose of more than 200 mg/dL in a nonstressed, ambulatory subject supports the diagnosis of Diabetes Mellitus. ADA recommended reference range Performed By: #### C KULWINDER, BMP ####[address] Potassium [Moles/Vol] 4.2 mmol/L Normal 3.5-5.1 The [facility] Comment on above: Performed By: #### C KULWINDER, BMP ####[address] Sodium [Moles/Vol] 130 mmol/L Low 136-145 The [facility] Comment on above: Performed By: #### C KULWINDER, BMP ####[address] Urea nitrogen [Mass/Vol] 23 mg/dL Normal 7-25 The [facility] Comment on above: Performed By: #### C KULWINDER, BMP ####[address] Hemogram CBC Without Diffon 01-24-2024 Erythrocyte distribution width (RBC) [Ratio] 13.9 % Normal 11.9-15.3 The [facility] Comment on above: Performed By: #### C KULWINDER, BMP ####[address] Hematocrit (Bld) [Volume fraction] 37.2 % Normal 34.0-46.4 The [facility] Comment on above: Performed By: #### C KULWINDER, BMP ####[address] Hemoglobin (Bld) [Mass/Vol] 12.6 g/dL Normal 11.8-15.4 The [facility] Comment on above: Performed By: #### C KULWINDER, BMP ####[place] [id number] [place] [address] [facility] MCH (RBC) [Entitic mass] 30.6 pg Normal 24.7-34.3 The [facility] Comment on above: Performed By: #### C KULWINDER, BMP ####[place] [id number] [facility] MCV (RBC) [Entitic vol] 90.5 fL Normal 80-100 T he [facility] Comment on above: Performed By: #### C KULWINDER, BMP ####[place] [id number] [facility] Mean Corpuscular HGB Conc 33.8 g/dL Normal 32.0-35.0 The [facility] Comment on above: Performed By: #### C KULWINDER, BMP ####[place] [id number] [facility] Platelet mean volume (Bld) [Entitic vol] 7.5 fL Normal 6.3-10.7 The [facility] Comment on above: Result Comment: PERF ORMED BY: [facility] [address] [place] [address] PATHOLOGIST STUDIO TECHNICIAN VIDEO OPERATOR SHERLYN BUSTILLO M.D. Performed By: #### C KULWINDER, BMP ####[place] [id number] [facility] Platelets (Bld) [#/Vol] 408 10*3/uL Normal 150-450 The [facility] Comment on above: Performed By: #### C KULWINDER, BMP ####[place] [id number] [facility] RBC (Bld) [#/Vol] 4.11 10*6/uL Normal 3.60-5.00 The [facility] Comment on above: Performed By: #### C KULWINDER, BMP ####[place] [id number] [facility] WBC (Bld) [#/Vol] 11.5 10*3/uL Normal 3.8-11.6 The [facility] Comment on above: Performed By: #### C BCNO, BMP ####[facility] [id number] [place] [id number] [facility] MR cervical spine wo conon 1 03-26-2023 MR cervical spine wo con [facility] [address] [place] [address] [place] [id number] MRI Report Signed Patient: Hiram Madrid MR#: [id number] : 1935 Acct:[id number] Age/Sex: 88 / F ADM Date: 01/24/24 Loc: 4N Room: 9R5011-9 Type: ADM IN Attending Dr: Niki Owusu [...] Angelo Winchester M.D.01/24/2024 7:59 PM Dictation Location: [place] [address] Transcribed By: [facility] 01/24/241958 Dictated By: Angelo Winchester II, MD 01/24/241951 Signed By: 01/24/241958 Normal The [facility] Complete Blood Count Auto Di ffon 01-23-2024 Basophils (Bld) [#/Vol] 0.1 10*3/uL Normal 0.0-0.2 The [facility] Comment on above: Result Comment: PERF ORMED BY: [address] [place] [address] PATHOLOGIST STUDIO TECHNICIAN VIDEO OPERATOR SHERLYN BUSTILLO M.D. Performed By: #### M G, CMP, CBC #### [facility] [address] [place] [id number] [place] Basophils/100 WBC (Bld) 0.9 % Normal . Renato fine [facility] Comment on above: Performed By: #### M G, CMP, CBC #### [facility] [address] [place] [address] [place] Eosinophils (Bld) [#/Vol] 0.0 10*3/uL Normal 0.0-0.45 The [facility] Comment on above: Performed By: #### M G, CMP, CBC #### [facility] [address] [place] [address] [place] Eosinophils/100 WBC (Bld) 0.2 % Normal . The [facility] Comment on above: Performed By: #### M G, CMP, CBC #### [facility] [address] [place] [address] [place] Erythrocyte distribution width (RBC) [Ratio] 13.9 % Normal 11.9-15.3 The [facility] Comment on above: Performed By: #### M G, CMP, CBC #### [facility] [address] [place] [address] [place] Hematocrit (Bld) [Volume fraction] 40.4 % Normal 34.0-46.4 The [facility] Comment on above: Performed By: #### M G, CMP, CBC #### [facility] [address] [place] [address] [place] Hemoglobin (Bld) [Mass/Vol] 13.5 g/dL Normal 11.8-15.4 The [facility] Comment on above: Performed By: #### M G, CMP, CBC #### [facility] [address] [place] [id number] [place] Lymphocytes (Bld) [#/Vol] 1.7 10*3/uL Normal 1.00-4.8 The [facility] Comment on above: Performed By: #### M G, CMP, CBC #### [facility] [address] [place] [id number] [place] Lymphocytes/100 WBC (Bld) 12.0 % Normal . The [facility] Comment on above: Performed By: #### M G, CMP, CBC #### [address] MCH (RBC) [Entitic mass] 30.3 pg Normal 24.7-34.3 The [facility] Comment on above: Performed By: #### M G, CMP, CBC #### [address] MCV (RBC) [Entitic vol] 90.5 fL Normal 80-100 T [facility] Comment on above: Performed By: #### M G, CMP, CBC #### [address] Mean Corpuscular HGB Conc 33.4 g/dL Normal 32.0-35.0 The [facility] Comment on above: Performed By: #### M G, CMP, CBC #### [address] Monocytes (Bld) [#/Vol] 0.8 10*3/uL Normal 0.0-0.8 The [facility] Comment on above: Performed By: #### M G, CMP, CBC #### [address] Monocytes/100 WBC (Bld) 5.4 % Normal . T [facility] Comment on above: Performed By: #### M G, CMP, CBC #### [address] Neutrophils (Bld) [#/Vol] 11.7 10*3/uL High 1.8-7.7 The [facility] Comment on above: Performed By: #### M G, CMP, CBC #### [address] Neutrophils/100 WBC (Bld) 81.5 % Normal . The [facility] Comment on above: Performed By: #### M G, CMP, CBC #### [address] NRBC% 0.0 /100{WBC} Normal 0-0.5 The [facility] Comment on above: Performed By: #### M G, CMP, CBC #### [address] Platelet mean volume (Bld) [Entitic vol] 7.4 fL Normal 6.3-10.7 The [facility] Comment on above: Performed By: #### M G, CMP, CBC #### [address] Platelets (Bld) [#/Vol] 428 10*3/uL Normal 150-450 The [facility] Comment on above: Performed By: #### M G, CMP, CBC #### [address] RBC (Bld) [#/Vol] 4.47 10*6/uL Normal 3.60-5.00 The [facility] Comment on above: Performed By: #### M G, CMP, CBC #### [address] WBC (Bld) [#/Vol] 14.3 10*3/uL High 3.8-11.6 The [facility] Comment on above: Performed By: #### M G, CMP, CBC #### [address] Comprehensive Metabolic Pane carlos 01-23-2024 Albumin [Mass/Vol] 3.9 g/dL Normal 3.5-5.7 The [facility] Comment on above: Performed By: #### M G, CMP, CBC #### [address] Albumin/Globulin [Mass ratio] 1.3 {ratio} Normal The [facility] Comment on above: Performed By: #### M G, CMP, CBC #### [address] ALP [Catalytic activity/Vol] 73 U/L Normal 34-104 The [facility] Comment on above: Performed By: #### M G, CMP, CBC #### [address] [place] [address] [place] ALT [Catalytic activity/Vol] 18 U/L Normal 7-52 The [facility] Comment on above: Performed By: #### M Lorena CMP, CBC #### [address] Anion gap [Moles/Vol] 14.2 mmol/L Normal 6.0-15.0 Th e [facility] Comment on above: Performed By: #### Blanca Carrillo, CMP, CBC #### [address] AST [Catalytic activity/Vol] 46 U/L High 13-39 The [facility] Comment on above: Performed By: #### Blanca Carrillo CMP, CBC #### [address] Bilirubin [Mass/Vol] 0.6 mg/dL Normal 0.3-1.0 The [facility] Comment on above: Performed By: #### Blanca Carrillo CMP, CBC #### [address] Calcium [Mass/Vol] 9.3 mg/dL Normal 8.6-10.3 The [facility] Comment on above: Performed By: #### Blanca Carrillo CMP, CBC #### [address] Chloride [Moles/Vol] 96 mmol/L Low 98-107 The [facility] Comment on above: Performed By: #### Blanca Carrillo CMP, CBC #### [address] CO2 [Moles/Vol] 24.7 mmol/L Normal 21.0-31.0 The [facility] Comment on above: Performed By: #### Blanca Carrillo CMP, CBC #### [address] Creatinine [Mass/Vol] 0.81 mg/dL Normal 0.60-1.20 The [facility] Comment on above: Performed By: #### Blanca Carrillo CMP, CBC #### [address] Creatinine Clr Calc Pharmacy 43.35 Normal The [facility] Comment on above: Performed By: #### M PAOLO Carrillo, CBC #### [place] [address] [place] GFR/1.73 sq M.predicted MDRD (S/P/Bld) [Vol rate/Area] mL/min/{1.73_m2} Normal The [facility] Comment on above: Performed By: #### Blanca Carrillo CMP, CBC #### [address] Globulin (S) [Mass/Vol] 3.1 g/dL Normal T he [facility] Comment on above: Performed By: #### Blanca Carrillo CMP, CBC #### [address] Glucose [Mass/Vol] 131 mg/dL High 70-100 The [facility] Comment on above: Result Comment: [place] Glucose Reference Range is dependent on time and content of last meal. Glucose of more than 200 mg/dL in a nonstressed, ambulatory subject supports the diagnosis of Diabetes Mellitus. ADA recommended reference range Performed By: #### M PAOLO Carrillo, CBC #### [address] Potassium [Moles/Vol] 3.9 mmol/L Normal 3.5-5.1 The [facility] Comment on above: Performed By: #### Blanca Carrillo CMP, CBC #### [address] Protein [Mass/Vol] 7.0 g/dL Normal 6.4-8.9 The [facility] Comment on above: Performed By: #### Blanca Carrillo CMP, CBC #### [place] [address] [place] Sodium [Moles/Vol] 131 mmol/L Low 136-145 The [facility] Comment on above: Performed By: #### Blanca Carrillo CMP, CBC #### [address] Urea nitrogen [Mass/Vol] 12 mg/dL Normal 7-25 The [facility] Comment on above: Performed By: #### M G, CMP, CBC #### [facility] [address] [place] [id number] [facility] Magnesiumon 01-23-2024 Magnesium [Mass/Vol] 1.7 mg/dL Low 1.9-2.7 The [facility] Comment on above: Result Comment: PERF ORMED BY: [place] [address] PATHOLOGIST STUDIO TECHNICIAN VIDEO OPERATOR SHERLYN BUSTILLO M.D. Performed By: #### M G, CMP, CBC #### [address] Urinalysison 01-23-2024 Appearance (U) Clear Normal Clear The [facility] Comment on above: Order Comment: Name Collection Type:: Clean-Voided Midstream Performed By: #### U A #### [address] Bilirubin,Urine Negative Normal Negative The [facility] Comment on above: Order Comment: Name Collection Type:: Clean-Voided Midstream Performed By: #### U A #### [address] Color (U) Light-Yellow Normal Yellow The [facility] Comment on above: Order Comment: Name Collection Type:: Clean-Voided Midstream Performed By: #### U A #### [address] Glucose Ql (U) Normal Normal Normal The [facility] Comment on above: Order Comment: Name Collection Type:: Clean-Voided Midstream Performed By: #### U A #### [address] Ketones Ql (U) Trace High Negative The [facility] Comment on above: Order Comment: Name Collection Type:: Clean-Voided Midstream Performed By: #### U A #### [address] Leukocyte esterase Test strip Ql (U) Negative Normal Negative The [facility] Comment on above: Order Comment: Name Collection Type:: Clean-Voided Midstream Performed By: #### U A #### [place] [address] [place] Nitrite,Urine Negative Normal Negative The [facility] Comment on above: Order Comment: Name Collection Type:: Clean-Voided Midstream Performed By: #### U A #### [address] Occult Blood,Urine Negative Normal Negative The [facility] Comment on above: Order Comment: Name Collection Type:: Clean-Voided Midstream Result Comment: PERF ORMED BY: [place] [address] PATHOLOGIST STUDIO TECHNICIAN VIDEO OPERATOR SHERLYN BUSTILLO M.D. Performed By: #### U A #### [address] pH (U) 7.5 [pH] Normal 5.0-9.0 The [facility] Comment on above: Order Comment: Name Collection Type:: Clean-Voided Midstream Performed By: #### U A #### [place] [address] [place] Protein,Urine Negative Normal Negative The [facility] Comment on above: Order Comment: Name Collection Type:: Clean-Voided Midstream Performed By: #### U A #### [place] [address] [place] Specificy Deary,Urine 1.013 Normal 1.001-1.030 The [facility] Comment on above: Order Comment: Name Collection Type:: Clean-Voided Midstream Performed By: #### U A #### [place] [address] [place] Urobilinogen,Urine Normal Normal Normal The [facility] Comment on above: Order Comment: Name Collection Type:: Clean-Voided Midstream Performed By: #### U A #### [address] Urine Cultureon 12-03-2024 Bacteria identified Cx Nom (U) 20,000 colonies/ml mixed bacterial skin contaminants 2 Days PERFORMED BY: [place] [address] PATHOLOGIST STUDIO TECHNICIAN VIDEO OPERATOR SHERLYN BUSTILLO M.D. Normal [facility] Comment on above: Performed By: #### C UU #### [place] [id number] [facility] Reminderson 09-26-2023 Reminders Reminders -- From: Jacquie Gan To: EU - Recallsánchez Abhishek; Sent: 12/22/2022 12:30:05 EDT Show up: 05/23/2023 12:30:00 EDT Subject: JAC and BUN/Creatinine prior to appt Reminder Message Please Remember to:_have pt schedule JAC prior to appt. Please look for BUN/Cr labs from PCP. If unable to locate recent labs, send pt order to complete this. Pt cancelled appt. Separate message to PRW regarding tracking pt. 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 Your Care Team Attending Physician - ROMARIO DUMONT, Turner Mckeon Primary Care Physician - Mami Daniels MD This Is Your Medications List Contact prescribing physician if questions or concerns amlodipine (amLODIPine 10 mg Tab) carvedilol (carvedilol 6.25 mg Tab) citalopram (CeleXA 10 mg Tab) levothyroxine (levothyroxine 88 mcg (0.088 mg) Tab) losartan (losartan 100 mg Tab) magnesium oxide (magnesium oxide 400 mg Tab) pantoprazole (Pantoprazole [address] Tab) potassium chloride (Potassium Chloride (Fwd-Lmzd-Fjl 10)) pravastatin (pravastatin 80 mg Tab) Procedures [...] or concerns Unchanged potassium chloride (Potassium Chloride (Hep-Caho-Mei 10)) 20 Milliequivalent By Mouth 3 times [...] choosing us for your care. Chago Russo [facility] General Surgery Office/Clini c Noteon 06-28-2023 [...] mg= 1 tab(s), Oral, Daily Potassium Chloride (Mxz-Wwjz-Wzg 10), 20 mEq, Oral, TID pravastatin 80 [...] influenza virus vaccine, inactivated 12/11/2014 Recorded Normal [facility] Comment on above: Result Comment: Elec tronically Signed By: ROMARIO DUMONT, Turner Connor\Date and Time Signed: 06/28/23 15:02 EDT Pathology Noteon 06-26-2023 Pathology Note [id number] 8D#1.00TIFF Normal [facility] Operative Reporton Operative Report [id number] 64#1.00TIFF Chago [facility] Carlos 06-21-2023 L Specimen: [id number] Received: 06/22/23 Status: BEST Orr Num: [id number] Spec Type: Surgical Subm Dr: Turner Doss MD FACS Tissues: A Skin-Other than Cyst, tag, debridement or plastic repair (LT CHEEK) Procedures: HE, Gross/Micro L4 Age/ Patient Sex Location Account Attending Physician Hiram Madrid 87/F LABELL [id number] Turner Doss MD FACS SPEC NUM: [id number] RECD: 06/22/23 STATUS: BEST ORR NUM: [id number] DI: 06/21/[address]: Turner Doss MD FACS ENTERED: 06/22/[address]: Lucian Avilez SPEC TYPE: Surgical DEPT: [...] Changing lesion left cheek TW CPT Codes 72477 Specimen: [id number] Received: 06/22/23 Status: BEST Orr Num: [id number] Spec Type: Surgical Subm Dr: Turner Doss MD FACS Tissues: A Skin-Other than Cyst, tag, debridement or plastic repair (LT CHEEK) Procedures: Antonio FINE/Karyna L4 Patient: Hiram Madrid [id number] (Continued) Signed (signatur e on file) Ángel Dodson MD 06/23/231633 Normal [facility] Consent for Procedure/Surger yon 05-04-2023 Consent for Procedure/Surgery [id number] 99#1.00TIFF Normal [facility] Facesheeton 05-04-2023 Facesheet [id number] 70#1.00TIFF Normal [facility] Ambulatory Visit Summaryon 0 05-03-2023 Ambulatory Visit Summary HIRAM MADRID :1935 Visit Date:05/03/2023 Ambulatory Visit Instructions Your Care Team Attending Physician - ROMARIO DUMONT, Turner Mckeon Primary Care Physician - Mami Daniels MD Referring Physician - Mami Daniels MD This Is Your Medications List Contact prescribing physician if questions or concerns amlodipine (amLODIPine 10 mg Tab) carvedilol (carvedilol 6.25 mg Tab) citalopram (CeleXA 10 mg Tab) levothyroxine (levothyroxine 88 mcg (0.088 mg) Tab) losartan (losartan 100 mg Tab) magnesium oxide (magnesium oxide 400 mg Tab) pantoprazole (Pantoprazole [address] Tab) potassium chloride (Potassium Chloride (Ifg-Tsxs-Xgx 10)) pravastatin (pravastatin 80 mg Tab) Procedures [...] [facility] Physician Referralon 024 Physician Referral [id number] [facility]ician Referral [id number] 42[facility] - Chemistry and C hemistry - challengeon 04-12-2023 Calcium [Mass/Vol] 8.9 mg/dL [facility] Chloride [Moles/Vol] 98 mmol/L [facility] CO2 [Moles/Vol] 25.9 mmol/L [facility] Creatinine [Mass/Vol] 0.76 mg/dL [facility] Glucose [Mass/Vol] 113 mg/dL [facility] Potassium [Moles/Vol] 4.0 mmol/L [facility] Sodium [Moles/Vol] 135 mmol/L [facility] Urea nitrogen [Mass/Vol] 12.0 mg/dL [facility] Calcium [Mass/volume] in Ser um or PlasmaOrdered By: Turner Frank on 04-05-2023 Calcium [Mass/Vol] 9.2 mg/dL 8.6-10.3 [facility] Carbon dioxide, total [Moles /volume] in Serum or PlasmaOrdered By: Turner Frank on 04-05-2023 CO2 [Moles/Vol] 27.7 mmol/L 21.0-31.0 [facility] Chloride [Moles/volume] in S willa or PlasmaOrdered By: Turner Frank on 04-05-2023 Chloride [Moles/Vol] 91 mmol/L 98-107 [facility] Creatinine [Mass/volume] in Serum or PlasmaOrdered By: Turner Frank on 04-05-2023 Creatinine [Mass/Vol] 0.56 mg/dL 0.60-1.20 [facility] Glucose [Mass/volume] in Ser um or PlasmaOrdered By: Turner Frank on 04-05-2023 Glucose [Mass/Vol] 116 mg/dL 70-100 [facility] Comment on above: ADA recommended refe rence rangeRandom Glucose Reference Range is dependent on time and content of last meal. Glucose of more than 200 mg/dL in a nonstressed, ambulatory subject supports the diagnosis of Diabetes Mellitus. No Panel InformationOrdered By: Turner Frank on 04-05-2023 Estimated GFR (CKD-EPI) > 60.0 mL/Min [facility] Creatinine Clearance (Chem 42.78 [facility] Potassium [Moles/volume] in Serum or PlasmaOrdered By: Turner Frank on 04-05-2023 Potassium [Moles/Vol] 3.5 mmol/L 3.5-5.1 [facility] Serum or plasma anion gap de terminationOrdered By: Turner Frank on 04-05-2023 Anion gap [Moles/Vol] 14.8 mmol/L 6.0-15.0 [facility] Sodium [Moles/volume] in Ser um or PlasmaOrdered By: Turner Frank on 04-05-2023 Sodium [Moles/Vol] 130 mmol/L 136-145 [facility] Urea nitrogen [Mass/volume] in Serum or PlasmaOrdered By: Turner Frank on 04-05-2023 Urea nitrogen [Mass/Vol] 8 mg/dL 7-25 [facility] Thyroxine (T4) free [Mass/vo lume] in Serum or PlasmaOrdered By: Turner Frank on 04-04-2023 Free T4 [Mass/Vol] 1.41 ng/dL 0.61-1.12 [facility] Alanine aminotransferase [En zymatic activity/volume] in Serum or PlasmaOrdered By: Natividad Gregory on 04-03-2023 ALT [Catalytic activity/Vol] 14 U/L 7-52 [facility] Albumin [Mass/volume] in Ser um or Plasma by Bromocresol green (BCG) dye binding methoOrdered By: Natividad Gregory on 04-03-2023 Albumin BCG dye [Mass/Vol] 3.7 g/dL 3.5-5.7 [facility] Alkaline phosphatase [Enzyma tic activity/volume] in Serum or PlasmaOrdered By: Natividad Gregory on 04-03-2023 ALP [Catalytic activity/Vol] 56 U/L 34-104 [facility] Aspartate aminotransferase [ Enzymatic activity/volume] in Serum or PlasmaOrdered By: Natividad Gregory on 04-03-2023 AST [Catalytic activity/Vol] 20 U/L 13-39 [facility] Basophils Auto (Bld) [#/Vol] Ordered By: Natividad Gregory on 04-03-2023 Basophils (Bld) [#/Vol] 0.1 10*3/uL 0.0-0.2 [facility] Basophils/100 WBC Auto (Bld) Ordered By: Natividad Gregory on 04-03-2023 Basophils/100 WBC (Bld) 0.6 % . [facility] Bilirubin.total [Mass/volume ] in Serum or PlasmaOrdered By: Natividad Gregory on 04-03-2023 Bilirubin [Mass/Vol] 0.7 mg/dL 0.3-1.0 [facility] Eosinophils Auto (Bld) [#/Vo l]Ordered By: Natividad Gregory on 04-03-2023 Eosinophils (Bld) [#/Vol] 0.1 10*3/uL 0.0-0.45 [facility] Eosinophils/100 WBC Auto (Bl d)Ordered By: Natividad Gregory on 04-03-2023 Eosinophils/100 WBC (Bld) 0.8 % . [facility] Erythrocyte distribution wid th Auto (RBC) [Ratio]Ordered By: Natividad Gregory on 04-03-2023 Erythrocyte distribution width (RBC) [Ratio] 13.9 % 11.9-15.3 [facility] Globulin Calc (S) [Mass/Vol] Ordered By: Natividad Gregory on 04-03-2023 Globulin (S) [Mass/Vol] 2.4 g/dL [facility] Hematocrit Auto (Bld) [Volum e fraction]Ordered By: Natividad Gregory on 04-03-2023 Hematocrit (Bld) [Volume fraction] 35.5 % 34.0-46.4 [facility] Hemoglobin [Mass/volume] in BloodOrdered By: Natividda Gregory on 04-03-2023 Hemoglobin (Bld) [Mass/Vol] 12.7 g/dL 11.8-15.4 [facility] Leukocytes [#/volume] correc sofiya for nucleated erythrocytes in Blood by Automated counOrdered By: Natividad Gregory on 04-03-2023 WBC corrected for nucl RBC Auto (Bld) [#/Vol] 10.6 10*3/uL 3.8-11.6 [facility] Lymphocytes Auto (Bld) [#/Vo l]Ordered By: Natividad Gregory on 04-03-2023 Lymphocytes (Bld) [#/Vol] 1.7 10*3/uL 1.00-4.8 [facility] Lymphocytes/100 WBC Auto (Bl d)Ordered By: Natividad Gregory on 04-03-2023 Lymphocytes/100 WBC (Bld) 15.6 % . [facility] MCH Auto (RBC) [Entitic mass ]Ordered By: Natividad Gregory on 04-03-2023 MCH (RBC) [Entitic mass] 31.6 pg 24.7-34.3 [facility] MCHC Auto (RBC) [Mass/Vol]Or dered By: Natividad Monsalvee on 04-03-2023 MCHC (RBC) [Mass/Vol] 35.8 g/dL 32.0-35.0 [facility] MCV Auto (RBC) [Entitic vol] Ordered By: Natividad Gregory on 04-03-2023 MCV (RBC) [Entitic vol] 88.3 fL 80-100 [facility] Monocytes Auto (Bld) [#/Vol] Ordered By: Natividad Gregory on 04-03-2023 Monocytes (Bld) [#/Vol] 1.1 10*3/uL 0.0-0.8 [facility] Monocytes/100 WBC Auto (Bld) Ordered By: Natividad Gregory on 04-03-2023 Monocytes/100 WBC (Bld) 10.3 % . [facility] Neutrophils Auto (Bld) [#/Vo l]Ordered By: Natividad Gregory on 04-03-2023 Neutrophils (Bld) [#/Vol] 7.7 10*3/uL 1.8-7.7 [facility] Neutrophils/100 WBC Auto (Bl d)Ordered By: Natividad Monsalvee on 04-03-2023 Neutrophils/100 WBC (Bld) 72.7 % . [facility] Nucleated erythrocytes [Pres ence] in Blood by Automated countOrdered By: Natividad Gregory on 04-03-2023 Nucleated RBC Auto Ql (Bld) 0.3 /100{WBC} 0-0.5 [facility] Platelet mean volume Auto (B ld) [Entitic vol]Ordered By: Natividad Gregory on 04-03-2023 Platelet mean volume (Bld) [Entitic vol] 7.0 fL 6.3-10.7 [facility] Platelets Auto (Bld) [#/Vol] Ordered By: Natividad Gregory on 04-03-2023 Platelets (Bld) [#/Vol] 424 10*3/uL 150-450 [facility] Protein [Mass/volume] in Ser um or PlasmaOrdered By: Natividad Gregory on 04-03-2023 Protein [Mass/Vol] 6.1 g/dL 6.4-8.9 [facility] RBC Auto (Bld) [#/Vol]Ordere d By: Natividad Gregory on 04-03-2023 RBC (Bld) [#/Vol] 4.02 10*6/uL 3.60-5.00 [facility] Serum or plasma albumin/glob ulin mass ratioOrdered By: Natividad Gregory on 04-03-2023 Albumin/Globulin [Mass ratio] 1.5 {ratio} [facility] WBC Auto (Bld) [#/Vol]Ordere d By: Natividad Gregory on 04-03-2023 WBC (Bld) [#/Vol] 10.6 10*3/uL 3.8-11.6 [facility] Magnesium [Mass/volume] in S willa or PlasmaOrdered By: Natividad Gregory on 04-02-2023 Magnesium [Mass/Vol] 1.9 mg/dL 1.9-2.7 [facility] No Panel InformationOrdered By: Natividad Gregory on 04-02-2023 Urine Osmolality 298 mosm 250-900 [facility] Sodium [Moles/volume] in Uri neOrdered By: Natividad Gregory on 04-02-2023 Sodium (U) [Moles/Vol] 79 mmol/L [facility] Comment on above: No reference range e stablished Thyrotropin [Units/volume] i n Serum or PlasmaOrdered By: Natividad Gregory on 04-02-2023 TSH Qn 5.76 m[IU]/L 0.45-5.33 [facility] Office Visiton 01-11-2023 Follow-up visit [id number] Hiram Madrid 1935 F Date Provider Department Center 01/11/2023 [facility]ASPAR [facility] Family History Problem Relation Age of Onset Hypertension Mother Lupus Mother Coronary artery disease Mother Heart attack Mother Hypertension Father Aneurysm Father Coronary artery disease Father Hypertension Sister Lupus Sister Family Status - Relation Status Age at Mother Father Sister Level of Service:80660 [place] OFFICE/OUTPATIENT ESTABLISHED MOD MDM 30-39 MIN Normal [facility] Lab Reportson 12-23-2022 Lab Reports [id number] EF#1.00TIFF Normal [facility] Urology Office/Clinic Noteon 12-23-2022 Urology Office/Clinic [...] Pt presented to ER due to syncope. Upperglade was found incidentally on CT. CT AP [...] Contact Information ABHISHEK NOONAN, MIKAYLA Pereira, URL [address] [place] [address] [phone] Additional Instructions: 6 mos w/ renal fxn (per PCP) Patient Education Hydronephrosis Documentation recorded by the ananth Gan accurately reflects the services(s) I performed and decisions made by me. Authenticated by Mikayla Weiss PA-C on 12/23/2022 12:13:28. Jacquie Garcia, personally scribed for Mikayla Weiss PA-C on [...] Tab losartan 100 mg Tab Potassium Chloride (Ndn-Qkex-Mzl 10), Oral, BID pravastatin 80 mg Tab [...] virus vaccine, (more content not included)... Normal [facility] Comment on above: Result Comment: Elec tronically Signed By: MIKAYLA WEISS PA-C\.br\Date and Time Signed: 12/23/22 12:13 EDT\.br\Electronically Co-Signed By: Jacquie Gan\.br\Date and Time Co-Signed: 12/22/22 12:27 EDT Ambulatory Visit Summaryon 02-21-2022 Ambulatory Visit Summary HIRAM MADRID :1935 Visit Date:12/22/2022 Ambulatory Visit Instructions Your Diagnosis Hydronephrosis, right Ureteral stenosis Tests Performed Urnls Dip Stick Auto w/o Microscopy POC 13916 US Renal -- Results Pending -- Please [...] 100 mg Tab) potassium chloride (Potassium Chloride (Suv-Vnpl-Bey 10)) pravastatin (pravastatin 80 mg Tab) Procedures [...] Follow these instructions at home: ? Take hgnx-vld-psbfboc and prescription medicines only as told by [...] Reviewed: 05/26/2020 Else[employer] Patient Education ? 2022 [employer] Normal [facility] RAD - Ultrasound Reporton RAD - Ultrasound Report [id number] 8C#1.00TIFF Normal [facility] Orders Onlyon 10-25-2022 Orders Only [id number] Hiram Madrid 1935 F Date Provider Department Center 10/25/2022 LESLY GASPAR [facility] Family History Problem Relation Age of Onset Hypertension Mother Lupus Mother Coronary artery disease Mother Heart attack Mother Hypertension Father Aneurysm Father Coronary artery disease Father Hypertension Sister Lupus Sister Family Status - Relation Status Age at Mother Father Sister Normal [facility] 37on 10-14-2022 38 Increase coreg/carvedilol to 25 mg twice a day- you have 12.5 mg tabs now so take 2 twice a day until this bottle is gone- your next refill will be the higher dose of 25 mg bid. Have labs drawn Normal [facility] Office Visiton 10-14-2022 Follow-up visit [id number] Hiram Madrid 1935 Date Provider Department Center 10/14/2022 LESLY GASPAR SONIA [facility] Family History Problem Relation Age of Onset Hypertension Mother Lupus Mother Coronary artery disease Mother Heart attack Mother Hypertension Father Aneurysm Father Coronary artery disease Father Hypertension Sister Lupus Sister Family Status - Relation Status Age at Mother Father Sister Level of Service:19663 [place] OFFICE/OUTPATIENT ESTABLISHED MOD MDM 30-39 MIN Normal [facility] Alanine aminotransferase [En zymatic activity/volume] in Serum or PlasmaOrdered By: Camacho Cooper on 08-05-2022 ALT [Catalytic activity/Vol] 16 U/L 7-52 [facility] Albumin [Mass/volume] in Ser um or Plasma by Bromocresol green (BCG) dye binding methoOrdered By: Camacho Cooper on 08-05-2022 Albumin BCG dye [Mass/Vol] 4.4 g/dL 3.5-5.7 [facility] Alkaline phosphatase [Enzyma tic activity/volume] in Serum or PlasmaOrdered By: Camacho Cooper on 08-05-2022 ALP [Catalytic activity/Vol] 61 U/L 34-104 [facility] Aspartate aminotransferase [ Enzymatic activity/volume] in Serum or PlasmaOrdered By: Camacho Cooper on 08-05-2022 AST [Catalytic activity/Vol] 21 U/L 13-39 [facility] Automated erythrocytes count in urine sediment (number/area)Ordered By: Camacho Cooper on 08-05-2022 RBC Auto (Urine sed) [#/Area] 0-1 [HPF] 0-4 [facility] Automated leukocytes count i n urine sediment (number/area)Ordered By: Camacho Cooper on 08-05-2022 WBC Auto (Urine sed) [#/Area] 1-2 [HPF] 0-4 [facility] Basophils Auto (Bld) [#/Vol] Ordered By: Camacho Cooper on 08-05-2022 Basophils (Bld) [#/Vol] 0.1 10*3/uL 0.0-0.2 [facility] Basophils/100 WBC Auto (Bld) Ordered By: Camacho Cooper on 08-05-2022 Basophils/100 WBC (Bld) 0.4 % . [facility] Bilirubin Test strip Ql (U)O rdered By: Camacho Cooper on 08-05-2022 Bilirubin Ql (U) Negative Negative [facility] Bilirubin.direct [Mass/volum e] in Serum or PlasmaOrdered By: Camacho Cooper on 08-05-2022 Bilirubin.direct [Mass/Vol] 0.10 mg/dL 0.03-0.18 [facility] Bilirubin.total [Mass/volume ] in Serum or PlasmaOrdered By: Camacho Cooper on 08-05-2022 Bilirubin [Mass/Vol] 0.7 mg/dL 0.3-1.0 [facility] Calcium [Mass/volume] in Ser um or PlasmaOrdered By: Camacho Cooper on 08-05-2022 Calcium [Mass/Vol] 9.7 mg/dL 8.6-10.3 [facility] Carbon dioxide, total [Moles /volume] in Serum or PlasmaOrdered By: Camacho Cooper on 08-05-2022 CO2 [Moles/Vol] 23.2 mmol/L 21.0-31.0 [facility] Chloride [Moles/volume] in S willa or PlasmaOrdered By: Camacho Cooper on 08-05-2022 Chloride [Moles/Vol] 87 mmol/L 98-107 [facility] Color Auto (U)Ordered By: Ender viralsherrie Cooper on 08-05-2022 Color (U) Yellow Yellow [facility] Creatinine [Mass/volume] in Serum or PlasmaOrdered By: Camacho Cooper on 08-05-2022 Creatinine [Mass/Vol] 1.03 mg/dL 0.60-1.20 [facility] Eosinophils Auto (Bld) [#/Vo l]Ordered By: Camacho Cooper on 08-05-2022 Eosinophils (Bld) [#/Vol] 0.1 10*3/uL 0.0-0.45 [facility] Eosinophils/100 WBC Auto (Bl d)Ordered By: Camacho Cooper on 08-05-2022 Eosinophils/100 WBC (Bld) 0.6 % . [facility] Erythrocyte distribution wid th Auto (RBC) [Ratio]Ordered By: Camacho Cooper on 08-05-2022 Erythrocyte distribution width (RBC) [Ratio] 13.6 % 11.9-15.3 [facility] Globulin Calc (S) [Mass/Vol] Ordered By: Camacho Cooper on 08-05-2022 Globulin (S) [Mass/Vol] 2.9 g/dL [facility] Glucose [Mass/volume] in Ser um or PlasmaOrdered By: Camacho Cooper on 08-05-2022 Glucose [Mass/Vol] 156 mg/dL 70-100 [facility] Comment on above: ADA recommended refe rence rangeRandom Glucose Reference Range is dependent on time and content of last meal. Glucose of more than 200 mg/dL in a nonstressed, ambulatory subject supports the diagnosis of Diabetes Mellitus. Hematocrit Auto (Bld) [Volum e fraction]Ordered By: Camacho Cooper on 08-05-2022 Hematocrit (Bld) [Volume fraction] 37.3 % 34.0-46.4 [facility] Hemoglobin [Mass/volume] in BloodOrdered By: Camacho Cooper on 08-05-2022 Hemoglobin (Bld) [Mass/Vol] 13.0 g/dL 11.8-15.4 [facility] Ketones Auto test strip (U) [Mass/Vol]Ordered By: Camacho Cooper on 08-05-2022 Ketones (U) [Mass/Vol] Negative Negative [facility] Laboratory - UrinalysisOrder ed By: Camacho Cooper on 08-05-2022 Hyaline casts LM Ql (Urine sed) None seen [LPF] 0-8 [facility] Leukocytes [#/volume] correc sofiya for nucleated erythrocytes in Blood by Automated counOrdered By: Camacho Cooper on 08-05-2022 WBC corrected for nucl RBC Auto (Bld) [#/Vol] 14.2 10*3/uL 3.8-11.6 [facility] Lipase [Enzymatic activity/v olume] in Serum or PlasmaOrdered By: Camacho Cooper on 08-05-2022 Lipase [Catalytic activity/Vol] 23.0 U/L 11.0-82.0 [facility] Lymphocytes Auto (Bld) [#/Vo l]Ordered By: Camacho oCoper on 08-05-2022 Lymphocytes (Bld) [#/Vol] 3.1 10*3/uL 1.00-4.8 [facility] Lymphocytes/100 WBC Auto (Bl d)Ordered By: Camacho Cooper on 08-05-2022 Lymphocytes/100 WBC (Bld) 21.9 % . [facility] MCH Auto (RBC) [Entitic mass ]Ordered By: Camacho Cooper on 08-05-2022 MCH (RBC) [Entitic mass] 31.6 pg 24.7-34.3 [facility] MCHC Auto (RBC) [Mass/Vol]Or dered By: Camacho Cooper on 08-05-2022 MCHC (RBC) [Mass/Vol] 35.0 g/dL 32.0-35.0 [facility] MCV Auto (RBC) [Entitic vol] Ordered By: Camacho Cooper on 08-05-2022 MCV (RBC) [Entitic vol] 90.4 fL 80-100 [facility] Monocyte distribution width [Entitic volume] in Blood by AutomatedOrdered By: Camacho Cooper on 08-05-2022 Monocyte distribution width Auto (Bld) [Entitic vol] 20.58 % 0.00-20.00 [facility] Comment on above: For adults in ED, MD W > 20.0 may be associated with a higher risk of sepsis during the first 12 hrs of hospital admission Monocytes Auto (Bld) [#/Vol] Ordered By: Camacho Cooper on 08-05-2022 Monocytes (Bld) [#/Vol] 1.4 10*3/uL 0.0-0.8 [facility] Monocytes/100 WBC Auto (Bld) Ordered By: Camacho Cooper on 08-05-2022 Monocytes/100 WBC (Bld) 9.6 % . [facility] Neutrophils Auto (Bld) [#/Vo l]Ordered By: Camacho Cooper on 08-05-2022 Neutrophils (Bld) [#/Vol] 9.6 10*3/uL 1.8-7.7 [facility] Neutrophils/100 WBC Auto (Bl d)Ordered By: Camacho Cooper on 08-05-2022 Neutrophils/100 WBC (Bld) 67.5 % . [facility] Nitrite Test strip Ql (U)Ord ered By: Camacho Cooper on 08-05-2022 Nitrite Ql (U) Negative Negative [facility] No Panel InformationOrdered By: Camacho Cooper on 08-05-2022 Estimated GFR (CKD-EPI) 53.284 mL/Min [facility] Creatinine Clearance (Chem 35.13 [facility] Nucleated erythrocytes [Pres ence] in Blood by Automated countOrdered By: Camacho Cooper on 08-05-2022 Nucleated RBC Auto Ql (Bld) 0.1 /100{WBC} 0-0.5 [facility] Platelet mean volume Auto (B ld) [Entitic vol]Ordered By: Camacho Cooper on 08-05-2022 Platelet mean volume (Bld) [Entitic vol] 7.2 fL 6.3-10.7 [facility] Platelets Auto (Bld) [#/Vol] Ordered By: Camacho Cooper on 08-05-2022 Platelets (Bld) [#/Vol] 500 10*3/uL 150-450 [facility] Potassium [Moles/volume] in Serum or PlasmaOrdered By: Camacho Cooper on 08-05-2022 Potassium [Moles/Vol] 3.0 mmol/L 3.5-5.1 [facility] Protein Auto test strip (U) [Mass/Vol]Ordered By: Camacho Cooper on 08-05-2022 Protein (U) [Mass/Vol] Negative Negative [facility] Protein [Mass/volume] in Ser um or PlasmaOrdered By: Camacho Cooper on 08-05-2022 Protein [Mass/Vol] 7.3 g/dL 6.4-8.9 [facility] RBC Auto (Bld) [#/Vol]Ordere d By: Camacho Cooper on 08-05-2022 RBC (Bld) [#/Vol] 4.13 10*6/uL 3.60-5.00 [facility] Serum or plasma albumin/glob ulin mass ratioOrdered By: Camacho Cooper on 08-05-2022 Albumin/Globulin [Mass ratio] 1.5 {ratio} [facility] Serum or plasma anion gap de terminationOrdered By: Camacho Cooper on 08-05-2022 Anion gap [Moles/Vol] 17.8 mmol/L 6.0-15.0 [facility] Serum or plasma non-glucuron idated bilirubin measurement (mass/volume)Ordered By: Camacho Cooper on 08-05-2022 Bilirubin.indirect [Mass/Vol] 0.6 mg/dL [facility] Sodium [Moles/volume] in Ser um or PlasmaOrdered By: Camacho Cooper on 08-05-2022 Sodium [Moles/Vol] 125 mmol/L 136-145 [facility] Specific gravity Auto test s trip (U) [Rel density]Ordered By: Camacho Cooper on 08-05-2022 Specific gravity (U) [Rel density] 1.009 1.001-1.030 [facility] Squamous epithelial cells de tection in urine sediment by light microscopyOrdered By: Camacho Cooper on 08-05-2022 Epithelial cells.squamous LM Ql (Urine sed) 0-1 [HPF] 0-2 [facility] Troponin I.cardiac [Mass/vol ume] in Serum or Plasma by Detection limit <= 0.01 ng/Ordered By: Camacho Cooper on 08-05-2022 Troponin I.cardiac DL <= 0.01 ng/mL [Mass/Vol] 7.7 pg/mL 0.0-15.0 [facility] Urea nitrogen [Mass/volume] in Serum or PlasmaOrdered By: Camacho Cooper on 08-05-2022 Urea nitrogen [Mass/Vol] 12 mg/dL 7-25 [facility] Urine bacteria detection by automated methodOrdered By: Camacho Cooper on 08-05-2022 Bacteria Auto Ql (U) None seen None Seen [facility] Urine clarity by refractomet ry automatedOrdered By: Camacho Cooper on 08-05-2022 Clarity Refractometry automated (U) Cloudy Clear [facility] Urine glucose measurement by automated test strip (mass/volume)Ordered By: Camacho Cooper on 08-05-2022 Glucose Auto test strip (U) [Mass/Vol] Normal mg/dL Normal [facility] Urine hemoglobin detection b y automated test stripOrdered By: Camacho Cooper on 08-05-2022 Hemoglobin Auto test strip Ql (U) Negative Negative [facility] Urine leukocyte esterase det ection by automated test stripOrdered By: Camacho Cooper on 08-05-2022 Leukocyte esterase Auto test strip Ql (U) 1+ Negative [facility] Urobilinogen Auto test strip (U) [Mass/Vol]Ordered By: Camacho Cooper on 08-05-2022 Urobilinogen (U) [Mass/Vol] Normal mg/dL Normal [facility] WBC Auto (Bld) [#/Vol]Ordere d By: Camacho Cooper on 08-05-2022 WBC (Bld) [#/Vol] 14.2 10*3/uL 3.8-11.6 [facility] pH Auto test strip (U)Ordere d By: Camacho Cooper on 08-05-2022 pH (U) 7.0 [pH] 5.0-9.0 [facility] BNPon 06-13-2022 Natriuretic peptide B (Bld) [Mass/Vol] 142.0 pg/mL Normal <=1,800.0 [facility] Comment on above: Performed By: #### T SH, BMP #### [facility] [address] [place] [address] Dr. Tasha Dodson CBC AUTO DIFFon 06-13-2022 BASO # 0.1 103/ul Normal 0.0-0.1 [facility] Comment on above: Performed By: #### T SH, BMP #### [facility] [address] [place] [address] Dr. Tasha Dodson Basophils/100 WBC (Bld) 1.0 % Normal 0.2-2.0 [facility] Comment on above: Performed By: #### T SH, BMP #### [facility] [address] [place] [address] Dr. Tasha Dodson EO # 0.3 103/ul Normal 0.0-0.7 [facility] Comment on above: Performed By: #### T SH, BMP #### [facility] [address] [place] [address] Dr. Tasha Dodson Eosinophils/100 WBC (Bld) 2.6 % Normal 0.9-7.0 [facility] Comment on above: Performed By: #### T SH, BMP #### [facility] [address] [place] [address] Dr. Tasha Dodson Erythrocyte distribution width (RBC) [Ratio] 13.4 % Normal 11.0-15.0 [facility] Comment on above: Performed By: #### T SH, BMP #### [facility] [address] [place] [address] Dr. Tasha Dodson Hematocrit (Bld) [Volume fraction] 39.5 % Normal 36.0-48.0 [facility] Comment on above: Performed By: #### T SH, BMP #### [facility] [address] [place] [address] Dr. Tasha Dodson Hemoglobin (Bld) [Mass/Vol] 13.1 g/dL Normal 12.0-16.0 [facility] Comment on above: Performed By: #### T SH, BMP #### [facility] [address] [place] [address] Dr. Tasha Dodson IG # 0.07 10e3/ul Critically high 0.00-0.03 [facility] Comment on above: Performed By: #### T SH, BMP #### [facility] [address] [place] [address] Dr. Tasha Dodson IG % 0.6 % Critically high 0.0-0.5 [facility] Comment on above: Performed By: #### T SH, BMP #### [facility] [address] [place] [address] Dr. Tasha Dodson LYMPH # 2.5 103/ul Normal 1.2-3.8 [facility] Comment on above: Performed By: #### T SH, BMP #### [facility] [address] [place] [address] Dr. Tasha Dodson Lymphocytes/100 WBC (Bld) 22.9 % Normal 20.5-60.0 [facility] Comment on above: Performed By: #### T SH, BMP #### [facility] [address] [place] [address] Dr. Tasha Dodson MANUAL DIFF REQ NO Normal [facility] Comment on above: Performed By: #### T SH, BMP #### [facility] [address] [place] [address] Dr. Tasha Dodson MCH (RBC) [Entitic mass] 30.7 pg Normal 26.7-34.0 [facility] Comment on above: Performed By: #### T SH, BMP #### [facility] [address] [place] [address] Dr. Tasha Dodson MCHC (RBC) [Mass/Vol] 33.2 g/dL Normal 29.9-35.2 [facility] Comment on above: Performed By: #### T JESI, BMP #### [facility] [address] [place] [address] Dr. Tahsa Dodson MCV (RBC) [Entitic vol] 92.5 fL Normal 81.0-99.0 [facility] Comment on above: Performed By: #### T SH, BMP #### [facility] [address] [place] [address] Dr. Tasha Dodson MONO # 0.8 103/ul Normal 0.3-0.8 [facility] Comment on above: Performed By: #### T JESI, BMP #### [facility] [address] [place] [address] Dr. Tasha Dodson Monocytes/100 WBC (Bld) 7.0 % Normal 1.7-12.0 [facility] Comment on above: Performed By: #### T JESI, BMP #### [facility] [address] [place] [address] Dr. Tasha Dodson NEUT # 7.2 103/ul Critically high 1.4-6.5 [facility] Comment on above: Performed By: #### T JESI, BMP #### [facility] [address] [place] [address] Dr. Tasha Dodson Neutrophils/100 WBC (Bld) 65.9 % Normal 43.0-75.0 [facility] Comment on above: Performed By: #### T JESI, BMP #### [facility] [address] [place] [address] Dr. Tasha Dodson Platelet mean volume (Bld) [Entitic vol] 8.0 fL Critically low 9.5-13.5 [facility] Comment on above: Performed By: #### T JESI, BMP #### [facility] [address] [place] [address] Dr. Tasha Dodson PLT 449 103/ul Normal 150-450 [facility] Comment on above: Performed By: #### T JESI, BMP #### [facility] [address] [place], [place] [address] Dr. Tasha Dodson RBC 4.27 106/ul Normal 4.20-5.40 [facility] Comment on above: Performed By: #### T SH, BMP #### [facility] [address] [place] [address] Dr. Tasha Ddoson WBC 10.9 103/ul Normal 4.0-11.0 [facility] Comment on above: Performed By: #### T SH, BMP #### [facility] [address] [place] [address] Dr. Tasha Dodson FREE THYROXINE INDEX T7on FTI 3.67 Normal 1.30-4.50 [facility] Comment on above: Performed By: #### T SH, BMP #### [facility] [address] [place] [address] Dr. Tasha Dodson T3U 36.0 % Normal 30.0-39.0 [facility] Comment on above: Performed By: #### T SH, BMP #### [facility] [address] [place] [address] Dr. Tasha Dodson T4 [Mass/Vol] 10.20 ug/dL Normal 4.80-13.90 [facility] Comment on above: Performed By: #### T SH, BMP #### [facility] [address] [place] [address] Dr. Tasha Dodson PROF CHEM 8 (BAS METB)on Anion gap [Moles/Vol] 13.8 mmol/L Normal Th [facility] Comment on above: Performed By: #### T SH, BMP #### [facility] [address] [place] [address] Dr. Tasha Dodson Calcium [Mass/Vol] 9.8 mg/dL Normal 8.5-10.1 [facility] Comment on above: Performed By: #### T SH, BMP #### [facility] [address] [place] [address] Dr. Tasha Dodson Chloride [Moles/Vol] 95 mmol/L Critically low 98-107 [facility] Comment on above: Performed By: #### T SH, BMP #### [facility] [address] [address] [address] Tasha Dodson CO2 [Moles/Vol] 30.5 mmol/L Normal 21.0-32.0 [facility] Comment on above: Performed By: #### T SH, BMP #### [facility] [address] [address] [address] Tasha Dodson Creatinine [Mass/Vol] 0.78 mg/dL Normal 0.55-1.02 [facility] Comment on above: Performed By: #### T SH, BMP #### [facility] [address] [place] [address] Dr. Tasha Dodson EGFR-AF AFGHAN >60 Normal >=60 [facility] Comment on above: Performed By: #### T SH, BMP #### [facility] [address] [place] [address] Dr. Tasha Dodson EGFR-NON AF AFGHAN >60 Normal >=60 [facility] Comment on above: Performed By: #### T SH, BMP #### [facility] [address] [place] [address] Dr. Tasha Dodson Glucose [Mass/Vol] 108 mg/dL Critically high 74-106 [facility] Comment on above: Performed By: #### T SH, BMP #### [facility] [address] [place] [address] Dr. Tasha Dodson Potassium [Moles/Vol] 3.3 mmol/L Critically low 3.5-5.1 [facility] Comment on above: Performed By: #### T SH, BMP #### [facility] [address] [place] [address] Dr. Tasha Dodson Sodium [Moles/Vol] 136 mmol/L Normal 136-145 [facility] Comment on above: Performed By: #### T SH, BMP #### [facility] [address] [place] [address] Dr. Tasha Dodson Urea nitrogen [Mass/Vol] 11.0 mg/dL Normal 7.0-18.0 [facility] Comment on above: Performed By: #### T SH, BMP #### [facility] [address] [place] [address] Dr. Tasha Dodson Urea nitrogen/Creatinine [Mass ratio] 14.1 mg/mg Normal [facility] Comment on above: Performed By: #### T SH, BMP #### [facility] [address] [place] [address] Dr. Tasha Dodson TSHon 06-13-2022 TSH 2.583 uIU/mL Normal 0.358-3.740 [facility] Comment on above: Performed By: #### T SH, BMP #### [facility] [address] [place] [address] Dr. 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 Tasha Dodson Clarity (U) CLEAR Normal CLEAR [facility] Comment on above: Performed By: #### T SH, BMP #### [facility] [address] [place] [address] Dr. Tasha Dodson Color (U) LT. YELLOW Normal YELLOW [facility] Comment on above: Performed By: #### T SH, BMP #### [facility] [address] [place] [address] Dr. Tasha Dodson Glucose Ql (U) Negative Normal NEGATIVE [facility] Comment on above: Performed By: #### T SH, BMP #### [facility] [address] [place] [address] Dr. Tasha Dodson Hemoglobin Ql (U) Negative Normal NEGATIVE [facility] Comment on above: Performed By: #### T SH, BMP #### [facility] [address] [place] [address] Dr. Tasha Dodson Ketones Ql (U) Negative Normal NEGATIVE [facility] Comment on above: Performed By: #### T SH, BMP #### [facility] [address] [place] [address] Dr. Tasha Dodson LEUKOCYTES Negative Normal NEGATIVE [facility] Comment on above: Performed By: #### T SH, BMP #### [facility] [address] [address] [address] Tasha Dodson Nitrite Ql (U) Negative Normal NEGATIVE [facility] Comment on above: Performed By: #### T SH, BMP #### [facility] [address] [address] [address] Tasha Dodson pH (U) 7.0 [pH] Normal 5-9 [facility] Comment on above: Performed By: #### T SH, BMP #### [facility] [address] [address] [address] Tasha Dodson SPEC GRAVITY 1.010 Normal 1.005-<=1.02 5 [facility] Comment on above: Performed By: #### T SH, BMP #### [facility] [address] [place] [address] Dr. Tasha Dodson UA PROTEIN Negative Normal NEGATIVE/ TRACE [facility] Comment on above: Performed By: #### T SH, BMP #### [facility] [address] [place] [address] Dr. Tasha Dodson UR MICRO IND NOT INDICATED Normal [facility] Comment on above: Performed By: #### T SH, BMP #### [facility] [address] [place] [address] Dr. Tasha Dodson Urobilinogen Qn (U) 0.2 {Juan'U}/dL Normal 0.2 - 1. 0 [facility] Comment on above: Performed By: #### T SH, BMP #### [facility] [address] [place] [address] Dr. Tasha Dodson ECHOCARDIO M/2D COMPLETEon 0 04-18-2022 ECHOCARDIO M/2D COMPLETE Patient: HIRAM MADRID Exam Date: 04/18/2022 : 1935 Gender:F Ordering : DR VALERIE DARDEN M.D. Admission #: [id number] Family : DR MAMI DANIELS . Order #: [id number] CLICK HERE TO VIEW EXAM ECHOCARDIOGRAM REPORT [...] Barragan M.D. on 04/19/2022 at 18:55 Normal [facility] Office Visiton 04-04-2022 Follow-up visit [id number] Hiram Madrid 1935 F Date Provider Department Center 04/04/2022 Yazmin-VALERIE DARDEN [facility] Family History Problem Relation Age of Onset Hypertension Mother Lupus Mother Coronary artery disease Mother Heart attack Mother Hypertension Father Aneurysm Father Coronary artery disease Father Hypertension Sister Lupus Sister Family Status - Relation Status Age at Mother Father Sister Level of Service:02684 GA OFFICE/OUTPATIENT ESTABLISHED MOD MDM 30-39 MIN Reason for Visit and Comments: Hyperlipidemia [182] Hypertension [429674] carotid artery stenosis [Other] 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 Tasha Dodson Basophils/100 WBC (Bld) 0.6 % Normal 0.2-2.0 [facility] Comment on above: Performed By: #### C BC #### [facility] [address] [address] [address] Tasha Dodson EO # 0.1 103/ul Normal 0.0-0.7 [facility] Comment on above: Performed By: #### C BC #### [facility] [address] [place] [address] Dr. Tasha Dodson Eosinophils/100 WBC (Bld) 0.9 % Normal 0.9-7.0 [facility] Comment on above: Performed By: #### C BC #### [facility] [address] [place] [address] Dr. Tasha Dodson Erythrocyte distribution width (RBC) [Ratio] 13.0 % Normal 11.0-15.0 [facility] Comment on above: Performed By: #### C BC #### [facility] [address] [place] [address] Dr. Tasha Dodson Hematocrit (Bld) [Volume fraction] 38.5 % Normal 36.0-48.0 [facility] Comment on above: Performed By: #### C BC #### [facility] [address] [place] [address] Dr. Tasha Dodson Hemoglobin (Bld) [Mass/Vol] 13.4 g/dL Normal 12.0-16.0 [facility] Comment on above: Performed By: #### C BC #### [facility] [address] [place] [address] Dr. Tasha Dodson IG # 0.07 10e3/ul Critically high 0.00-0.03 [facility] Comment on above: Performed By: #### C BC #### [facility] [address] [place] [address] Dr. Tasha Dodson IG % 0.5 % Normal 0.0-0.5 [facility] Comment on above: Performed By: #### C BC #### [facility] [address] [place] [address] Dr. Tasha Dodson LYMPH # 2.8 103/ul Normal 1.2-3.8 [facility] Comment on above: Performed By: #### C BC #### [facility] [address] [place] [address] Dr. Tasha Dodson Lymphocytes/100 WBC (Bld) 20.5 % Normal 20.5-60.0 [facility] Comment on above: Performed By: #### C BC #### [facility] [address] [place] [address] Dr. Tasha Dodson MANUAL DIFF REQ NO Normal [facility] Comment on above: Performed By: #### C BC #### [facility] [address] [place] [address] Dr. Tasha Dodson MCH (RBC) [Entitic mass] 30.7 pg Normal 26.7-34.0 [facility] Comment on above: Performed By: #### C BC #### [facility] [address] [place] [address] Dr. Tasha Dodson MCHC (RBC) [Mass/Vol] 34.8 g/dL Normal 29.9-35.2 [facility] Comment on above: Performed By: #### C BC #### [facility] [address] [place] [address] Dr. Tasha Dodson MCV (RBC) [Entitic vol] 88.3 fL Normal 81.0-99.0 [facility] Comment on above: Performed By: #### C BC #### [facility] [address] [place] [address] Dr. Tasha Dodson MONO # 1.0 103/ul Critically high 0.3-0.8 [facility] Comment on above: Performed By: #### C BC #### [facility] [address] [place] [address] Dr. Tasha Dodson Monocytes/100 WBC (Bld) 7.4 % Normal 1.7-12.0 [facility] Comment on above: Performed By: #### C BC #### [facility] [address] [place] [address] Dr. Tasha Dodson NEUT # 9.5 103/ul Critically high 1.4-6.5 [facility] Comment on above: Performed By: #### C BC #### [facility] [address] [place] [address] Dr. Tasha Dodson Neutrophils/100 WBC (Bld) 70.1 % Normal 43.0-75.0 [facility] Comment on above: Performed By: #### C BC #### [facility] [address] [place] [address] Dr. Tasha Dodson Platelet mean volume (Bld) [Entitic vol] 8.0 fL Critically low 9.5-13.5 [facility] Comment on above: Performed By: #### C BC #### [facility] [address] [place] [address] Dr. Tasha Dodson PLT 492 103/ul Critically high 150-450 [facility] Comment on above: Performed By: #### C BC #### [facility] [address] [place] [address] Dr. Tasha Dodson RBC 4.36 106/ul Normal 4.20-5.40 [facility] Comment on above: Performed By: #### C BC #### [facility] [address] [place] [address] Dr. Tasha Dodson WBC 13.5 103/ul Critically high 4.0-11.0 [facility] Comment on above: Performed By: #### C BC #### [facility] [address] [place] [address] Dr. Tasha Dodson PROF 14(COMP METB)on 022 Albumin [Mass/Vol] 3.8 g/dL Normal 3.4-5.0 [facility] Comment on above: Performed By: #### T SH, BMP #### [facility] [address] [place] [address] Dr. Tasha Dodson Albumin/Globulin [Mass ratio] 0.9 {ratio} Normal [facility] Comment on above: Performed By: #### T SH, BMP #### [facility] [address] [place] [address] Dr. Tasha Dodson ALP [Catalytic activity/Vol] 60 U/L Normal 46-116 [facility] Comment on above: Performed By: #### T SH, BMP #### [facility] [address] [place] [address] Dr. Tasha Dodson ALT [Catalytic activity/Vol] 26 U/L Normal 14-59 [facility] Comment on above: Performed By: #### T SH, BMP #### [facility] [address] [place] [address] Dr. Tasha Dodson Anion gap [Moles/Vol] 8.4 mmol/L Normal [facility] Comment on above: Performed By: #### T SH, BMP #### [facility] [address] [place] [address] Dr. Tasha Dodson AST [Catalytic activity/Vol] 19 U/L Normal 15-37 [facility] Comment on above: Performed By: #### T SH, BMP #### [facility] [address] [place] [address] Dr. Tasha Dodson Bilirubin [Mass/Vol] 0.4 mg/dL Normal 0.2-1.0 [facility] Comment on above: Performed By: #### T SH, BMP #### [facility] [address] [place] [address] Dr. Tasha Dodson Calcium [Mass/Vol] 10.1 mg/dL Normal 8.5-10.1 [facility] Comment on above: Performed By: #### T SH, BMP #### [facility] [address] [place] [address] Dr. Tasha Ddoson Chloride [Moles/Vol] 92 mmol/L Critically low 98-107 [facility] Comment on above: Performed By: #### T SH, BMP #### [facility] [address] [place] [address] Dr. Tasha Dodson CO2 [Moles/Vol] 33.8 mmol/L Critically high 21.0-32.0 [facility] Comment on above: Performed By: #### T SH, BMP #### [facility] [address] [place] [address] Dr. Tasha Dodson Creatinine [Mass/Vol] 0.67 mg/dL Normal 0.55-1.02 [facility] Comment on above: Performed By: #### T SH, BMP #### [facility] [address] [address] [address] Tasha Dodson EGFR-AF AFGHAN >60 Normal >=60 [facility] Comment on above: Performed By: #### T SH, BMP #### [facility] [address] [place] [address] Dr. Tasha Dodson EGFR-NON AF AFGHAN >60 Normal >=60 [facility] Comment on above: Performed By: #### T SH, BMP #### [facility] [address] [place] [address] Dr. Tasha Dodson Globulin (S) [Mass/Vol] 4.1 g/dL Normal [facility] Comment on above: Performed By: #### T SH, BMP #### [facility] [address] [place] [address] Dr. Tasha Dodson Glucose [Mass/Vol] 106 mg/dL Normal 74-106 [facility] Comment on above: Performed By: #### T SH, BMP #### [facility] [address] [place] [address] Dr. Tsaha Dodson Potassium [Moles/Vol] 3.2 mmol/L Critically low 3.5-5.1 [facility] Comment on above: Performed By: #### T SH, BMP #### [facility] [address] [place] [address] Dr. Tasha Dodson Protein [Mass/Vol] 7.9 g/dL Normal 6.4-8.2 [facility] Comment on above: Performed By: #### T SH, BMP #### [facility] [address] [address] [address] Tasha Dodson Sodium [Moles/Vol] 131 mmol/L Critically low 136-145 [facility] Comment on above: Performed By: #### T SH, BMP #### [facility] [address] [place] [address] Dr. Tasha Dodson Urea nitrogen [Mass/Vol] 10.0 mg/dL Normal 7.0-18.0 [facility] Comment on above: Performed By: #### T SH, BMP #### [facility] [address] [place] [address] Dr. Tasha Dodson Urea nitrogen/Creatinine [Mass ratio] 14.9 mg/mg Normal [facility] Comment on above: Performed By: #### T SH, BMP #### [facility] [address] [place] [address] Dr. Tasha Dodson CBC AUTO DIFFon 12-29-2021 BASO # 0.1 103/ul Normal 0.0-0.1 [facility] Comment on above: Performed By: #### C BC #### [facility] [address] [place] [address] Dr. Tasha Dodson Basophils/100 WBC (Bld) 0.5 % Normal 0.2-2.0 [facility] Comment on above: Performed By: #### C BC #### [facility] [address] [place] [address] Dr. Tasha Dodson EO # 0.1 103/ul Normal 0.0-0.7 [facility] Comment on above: Performed By: #### C BC #### [facility] [address] [place] [address] Dr. Tasha Dodson Eosinophils/100 WBC (Bld) 0.4 % Critically low 0.9-7.0 [facility] Comment on above: Performed By: #### C BC #### [facility] [address] [place] [address] Dr. Tasha Dodson Erythrocyte distribution width (RBC) [Ratio] 13.0 % Normal 11.0-15.0 [facility] Comment on above: Performed By: #### C BC #### [facility] [address] [place] [address] Dr. Tasha Dodson Hematocrit (Bld) [Volume fraction] 34.0 % Critically low 36.0-48.0 [facility] Comment on above: Performed By: #### C BC #### [facility] [address] [place] [address] Dr. Tasha Dodson Hemoglobin (Bld) [Mass/Vol] 12.0 g/dL Normal 12.0-16.0 [facility] Comment on above: Performed By: #### C BC #### [facility] [address] [place] [address] Dr. Tasha Dodson IG # 0.06 10e3/ul Critically high 0.00-0.03 [facility] Comment on above: Performed By: #### C BC #### [facility] [address] [place] [address] Dr. Tasha Dodson IG % 0.4 % Normal 0.0-0.5 [facility] Comment on above: Performed By: #### C BC #### [facility] [address] [place] [address] Dr. Tasha Dodson LYMPH # 2.5 103/ul Normal 1.2-3.8 [facility] Comment on above: Performed By: #### C BC #### [facility] [address] [place] [address] Dr. Tasha Dodson Lymphocytes/100 WBC (Bld) 17.4 % Critically low 20.5-60.0 [facility] Comment on above: Performed By: #### C BC #### [facility] [address] [place] [address] Dr. Tasha Dodson MANUAL DIFF REQ NO Normal [facility] Comment on above: Performed By: #### C BC #### [facility] [address] [place] [address] Dr. Tasha Dodson MCH (RBC) [Entitic mass] 31.0 pg Normal 26.7-34.0 [facility] Comment on above: Performed By: #### C BC #### [facility] [address] [place] [address] Dr. Tasha Dodson MCHC (RBC) [Mass/Vol] 35.3 g/dL Critically high 29.9-35.2 [facility] Comment on above: Performed By: #### C BC #### [facility] [address] [place] [address] Dr. Tasha Dodson MCV (RBC) [Entitic vol] 87.9 fL Normal 81.0-99.0 [facility] Comment on above: Performed By: #### C BC #### [facility] [address] [place] [address] Dr. Tasha Dodson MONO # 1.0 103/ul Critically high 0.3-0.8 [facility] Comment on above: Performed By: #### C BC #### [facility] [address] [place] [address] Dr. Tasha Dodsno Monocytes/100 WBC (Bld) 6.9 % Normal 1.7-12.0 [facility] Comment on above: Performed By: #### C BC #### [facility] [address] [place] [address] Dr. Tasha Dodson NEUT # 10.8 103/ul Critically high 1.4-6.5 [facility] Comment on above: Performed By: #### C BC #### [facility] [address] [place] [address] Dr. Tasha Dodson Neutrophils/100 WBC (Bld) 74.4 % Normal 43.0-75.0 [facility] Comment on above: Performed By: #### C BC #### [facility] [address] [place] [address] Dr. Tasha Dodson Platelet mean volume (Bld) [Entitic vol] 8.4 fL Critically low 9.5-13.5 [facility] Comment on above: Performed By: #### C BC #### [facility] [address] [place] [address] Dr. Tasha Dodson PLT 370 103/ul Normal 150-450 [facility] Comment on above: Performed By: #### C BC #### [facility] [address] [place] [address] Dr. Tasha Dodson RBC 3.87 106/ul Critically low 4.20-5.40 [facility] Comment on above: Performed By: #### C BC #### [facility] [address] [address] [address] Tasha Dodson WBC 14.5 103/ul Critically high 4.0-11.0 [facility] Comment on above: Performed By: #### C BC #### [facility] [address] [place] [address] Dr. Tasha Dodson PROF 14(COMP METB)on 022 Albumin [Mass/Vol] 2.8 g/dL Critically low 3.4-5.0 [facility] Comment on above: Performed By: #### T SH, BMP #### [facility] [address] [place] [address] Dr. Tasha Dodson Albumin/Globulin [Mass ratio] 0.9 {ratio} Normal [facility] Comment on above: Performed By: #### T SH, BMP #### [facility] [address] [place] [address] Dr. Tahsa Dodson ALP [Catalytic activity/Vol] 51 U/L Normal 46-116 [facility] Comment on above: Performed By: #### T SH, BMP #### [facility] [address] [place] [address] Dr. Tasha Dodson ALT [Catalytic activity/Vol] 15 U/L Normal 14-59 [facility] Comment on above: Performed By: #### T SH, BMP #### [facility] [address] [place] [address] Dr. Tasha Dodson Anion gap [Moles/Vol] 9.7 mmol/L Normal [facility] Comment on above: Performed By: #### T SH, BMP #### [facility] [address] [place] [address] Dr. Tasha Dodson AST [Catalytic activity/Vol] 15 U/L Normal 15-37 [facility] Comment on above: Performed By: #### T SH, BMP #### [facility] [address] [place] [address] Dr. Tasha Dodson Bilirubin [Mass/Vol] 0.4 mg/dL Normal 0.2-1.0 [facility] Comment on above: Performed By: #### T SH, BMP #### [facility] [address] [place] [address] Dr. Tasha Dodson Calcium [Mass/Vol] 8.6 mg/dL Normal 8.5-10.1 [facility] Comment on above: Performed By: #### T SH, BMP #### [facility] [address] [place] [address] Dr. Tasha Dodson Chloride [Moles/Vol] 97 mmol/L Critically low 98-107 [facility] Comment on above: Performed By: #### T SH, BMP #### [facility] [address] [place] [address] Dr. Tasha Dodson CO2 [Moles/Vol] 25.8 mmol/L Normal 21.0-32.0 [facility] Comment on above: Performed By: #### T SH, BMP #### [facility] [address] [place] [address] Dr. Tasha Dodson Creatinine [Mass/Vol] 0.52 mg/dL Critically low 0.55-1.02 [facility] Comment on above: Performed By: #### T SH, BMP #### [facility] [address] [place] [address] Dr. Tasha Dodson EGFR-AF AFGHAN >60 Normal >=60 [facility] Comment on above: Performed By: #### T SH, BMP #### [facility] [address] [place] [address] Dr. Tasha Dodson EGFR-NON AF AFGHAN >60 Normal >=60 [facility] Comment on above: Performed By: #### T SH, BMP #### [facility] [address] [place] [address] Dr. Tasha Dodson Globulin (S) [Mass/Vol] 3.2 g/dL Normal [facility] Comment on above: Performed By: #### T SH, BMP #### [facility] [address] [place] [address] Dr. Tasha Dodson Glucose [Mass/Vol] 117 mg/dL Critically high 74-106 [facility] Comment on above: Performed By: #### T SH, BMP #### [facility] [address] [place] [address] Dr. Tasha Dodson Potassium [Moles/Vol] 3.5 mmol/L Normal 3.5-5.1 [facility] Comment on above: Performed By: #### T SH, BMP #### [facility] [address] [place] [address] Dr. Tasha Dodson Protein [Mass/Vol] 6.0 g/dL Critically low 6.4-8.2 [facility] Comment on above: Performed By: #### T SH, BMP #### [facility] [address] [place] [address] Dr. Tasha Dodson Sodium [Moles/Vol] 129 mmol/L Critically low 136-145 Th [facility] Comment on above: Performed By: #### T SH, BMP #### [facility] [address] [place] [address] Dr. Tasha Dodson Urea nitrogen [Mass/Vol] 4.0 mg/dL Critically low 7.0-18. 0 [facility] Comment on above: Performed By: #### T SH, BMP #### [facility] [address] [place] [address] Dr. Tasha Dodson Urea nitrogen/Creatinine [Mass ratio] 7.7 mg/mg Normal [facility] Comment on above: Performed By: #### T SH, BMP #### [facility] [address] [place] [address] Dr. Tasha Dodson CBC AUTO DIFFon 12-28-2021 BASO # 0.1 103/ul Normal 0.0-0.1 [facility] Comment on above: Performed By: #### C BC #### [facility] [address] [place] [address] Dr. Tasha Dodson Basophils/100 WBC (Bld) 0.4 % Normal 0.2-2.0 [facility] Comment on above: Performed By: #### C BC #### [facility] [address] [place] [address] Dr. Tasha Dodson EO # 0.1 103/ul Normal 0.0-0.7 [facility] Comment on above: Performed By: #### C BC #### [facility] [address] [place] [address] Dr. Tasha Dodson Eosinophils/100 WBC (Bld) 0.4 % Critically low 0.9-7.0 [facility] Comment on above: Performed By: #### C BC #### [facility] [address] [place] [address] Dr. Tasha Dodson Erythrocyte distribution width (RBC) [Ratio] 12.9 % Normal 11.0-15.0 [facility] Comment on above: Performed By: #### C BC #### [facility] [address] [place] [address] Dr. Tasha Dodson Hematocrit (Bld) [Volume fraction] 34.2 % Critically low 36.0-48.0 [facility] Comment on above: Performed By: #### C BC #### [facility] [address] [place] [address] Dr. Tasha Dodson Hemoglobin (Bld) [Mass/Vol] 12.4 g/dL Normal 12.0-16.0 [facility] Comment on above: Performed By: #### C BC #### [facility] [address] [place] [address] Dr. Tasha Dodson IG # 0.09 10e3/ul Critically high 0.00-0.03 [facility] Comment on above: Performed By: #### C BC #### [facility] [address] [place] [address] Dr. Tasha Dodson IG % 0.6 % Critically high 0.0-0.5 [facility] Comment on above: Performed By: #### C BC #### [facility] [address] [place] [address] Dr. Tasha Dodson LYMPH # 2.2 103/ul Normal 1.2-3.8 [facility] Comment on above: Performed By: #### C BC #### [facility] [address] [place] [address] Dr. Tasha Dodson Lymphocytes/100 WBC (Bld) 13.6 % Critically low 20.5-60.0 [facility] Comment on above: Performed By: #### C BC #### [facility] [address] [place] [address] Dr. Tasha Dodson MANUAL DIFF REQ NO Normal [facility] Comment on above: Performed By: #### C BC #### [facility] [address] [place] [address] Dr. Tasha Dodson MCH (RBC) [Entitic mass] 31.2 pg Normal 26.7-34.0 [facility] Comment on above: Performed By: #### C BC #### [facility] [address] [place] [address] Dr. Tasha Dodson MCHC (RBC) [Mass/Vol] 36.3 g/dL Critically high 29.9-35.2 [facility] Comment on above: Performed By: #### C BC #### [facility] [address] [place] [address] Dr. Tasha Dodson MCV (RBC) [Entitic vol] 85.9 fL Normal 81.0-99.0 [facility] Comment on above: Performed By: #### C BC #### [facility] [address] [place] [address] Dr. Tasha Dodson MONO # 1.3 103/ul Critically high 0.3-0.8 [facility] Comment on above: Performed By: #### C BC #### [facility] [address] [place] [address] Dr. Tasha Dodson Monocytes/100 WBC (Bld) 7.8 % Normal 1.7-12.0 [facility] Comment on above: Performed By: #### C BC #### [facility] [address] [place] [address] Dr. Tasha Dodson NEUT # 12.4 103/ul Critically high 1.4-6.5 [facility] Comment on above: Performed By: #### C BC #### [facility] [address] [place] [address] Dr. Tasha Dodson Neutrophils/100 WBC (Bld) 77.2 % Critically high 43.0-75.0 [facility] Comment on above: Performed By: #### C BC #### [facility] [address] [place] [address] Dr. Tasha Dodson Platelet mean volume (Bld) [Entitic vol] 8.6 fL Critically low 9.5-13.5 [facility] Comment on above: Performed By: #### C BC #### [facility] [address] [place] [address] Dr. Tasha Dodson PLT 385 103/ul Normal 150-450 [facility] Comment on above: Performed By: #### C BC #### [facility] [address] [place] [address] Dr. Tasha Dodson RBC 3.98 106/ul Critically low 4.20-5.40 [facility] Comment on above: Performed By: #### C BC #### [facility] [address] [place] [address] Dr. Tasha Dodson WBC 16.1 103/ul Critically high 4.0-11.0 [facility] Comment on above: Performed By: #### C BC #### [facility] [address] [place] [address] Dr. Tasha Dodson PROF 14(COMP METB)on 022 Albumin [Mass/Vol] 3.2 g/dL Critically low 3.4-5.0 [facility] Comment on above: Performed By: #### T JESI, BMP #### [facility] [address] [place] [address] Dr. Tasha Dodson Albumin/Globulin [Mass ratio] 1.0 {ratio} Normal [facility] Comment on above: Performed By: #### T SH, BMP #### [facility] [address] [place] [address] Dr. Tasha Dodson ALP [Catalytic activity/Vol] 51 U/L Normal 46-116 [facility] Comment on above: Performed By: #### T JESI, BMP #### [facility] [address] [place] [address] Dr. Tasha Dodson ALT [Catalytic activity/Vol] 17 U/L Normal 14-59 [facility] Comment on above: Performed By: #### T SH, BMP #### [facility] [address] [place] [address] Dr. Tasha Dodson Anion gap [Moles/Vol] 10.5 mmol/L Normal [facility] Comment on above: Performed By: #### T SH, BMP #### [facility] [address] [place] [address] Dr. Tasha Dodson AST [Catalytic activity/Vol] 18 U/L Normal 15-37 [facility] Comment on above: Performed By: #### T SH, BMP #### [facility] [address] [place] [address] Dr. Tasha Dodson Bilirubin [Mass/Vol] 0.4 mg/dL Normal 0.2-1.0 [facility] Comment on above: Performed By: #### T SH, BMP #### [facility] [address] [place] [address] Dr. Tasha Dodson Calcium [Mass/Vol] 8.3 mg/dL Critically low 8.5-10.1 [facility] Comment on above: Performed By: #### T SH, BMP #### [facility] [address] [place] [address] Dr. Tasha Dodson Chloride [Moles/Vol] 96 mmol/L Critically low 98-107 [facility] Comment on above: Performed By: #### T SH, BMP #### [facility] [address] [place] [address] Dr. Tasha Dodson CO2 [Moles/Vol] 24.5 mmol/L Normal 21.0-32.0 [facility] Comment on above: Performed By: #### T SH, BMP #### [facility] [address] [place] [address] Dr. Tasha Dodson Creatinine [Mass/Vol] 0.54 mg/dL Critically low 0.55-1.02 [facility] Comment on above: Performed By: #### T SH, BMP #### [facility] [address] [place] [address] Dr. Tasha Dodson EGFR-AF AFGHAN >60 Normal >=60 [facility] Comment on above: Performed By: #### T SH, BMP #### [facility] [address] [place] [address] Dr. Tasha Dodson EGFR-NON AF AFGHAN >60 Normal >=60 [facility] Comment on above: Performed By: #### T SH, BMP #### [facility] [address] [address] [address] Tasha Dodson Globulin (S) [Mass/Vol] 3.1 g/dL Normal [facility] Comment on above: Performed By: #### T SH, BMP #### [facility] [address] [place] [address] Dr. Tasha Dodson Glucose [Mass/Vol] 123 mg/dL Critically high 74-106 [facility] Comment on above: Performed By: #### T SH, BMP #### [facility] [address] [place] [address] Dr. Tasha Dodson Potassium [Moles/Vol] 3.0 mmol/L Critically low 3.5-5.1 [facility] Comment on above: Performed By: #### T SH, BMP #### [facility] [address] [place] [address] Dr. Tasha Dodson Protein [Mass/Vol] 6.3 g/dL Critically low 6.4-8.2 [facility] Comment on above: Performed By: #### T SH, BMP #### [facility] [address] [place] [address] Dr. Tasha Dodson Sodium [Moles/Vol] 128 mmol/L Critically low 136-145 [facility] Comment on above: Performed By: #### T SH, BMP #### [facility] [address] [place] [address] Dr. Tasha Dodson Urea nitrogen [Mass/Vol] 5.0 mg/dL Critically low 7.0-18. 0 [facility] Comment on above: Performed By: #### T SH, BMP #### [facility] [address] [place] [address] Dr. Tasha Dodson Urea nitrogen/Creatinine [Mass ratio] 9.3 mg/mg Normal [facility] Comment on above: Performed By: #### T SH, BMP #### [facility] [address] [place] [address] Dr. Tasha Dodson SODIUM RANDOM URINEon 2021 Sodium (U) [Moles/Vol] 135 mmol/L Critically high 30-90 [facility] Comment on above: Performed By: #### C BC #### [facility] [address] [place] [address] Dr. Tasha Dodson CBC AUTO DIFFon 12-27-2021 BASO # 0.0 103/ul Normal 0.0-0.1 [facility] Comment on above: Performed By: #### C BC #### [facility] [address] [place] [address] Dr. Tasha Dodson Basophils/100 WBC (Bld) 0.2 % Normal 0.2-2.0 [facility] Comment on above: Performed By: #### C BC #### [facility] [address] [place] [address] Dr. Tasha Dodson EO # 0.3 103/ul Normal 0.0-0.7 [facility] Comment on above: Performed By: #### C BC #### [facility] [address] [place] [address] Dr. Tasha Dodson Eosinophils/100 WBC (Bld) 2.3 % Normal 0.9-7.0 [facility] Comment on above: Performed By: #### C BC #### [facility] [address] [place] [address] Dr. Tasha Dodson Erythrocyte distribution width (RBC) [Ratio] 12.4 % Normal 11.0-15.0 [facility] Comment on above: Performed By: #### C BC #### [facility] [address] [place] [address] Dr. Tasha Dodson Hematocrit (Bld) [Volume fraction] 35.4 % Critically low 36.0-48.0 [facility] Comment on above: Performed By: #### C BC #### [facility] [address] [place] [address] Dr. Tasha Dodson Hemoglobin (Bld) [Mass/Vol] 12.9 g/dL Normal 12.0-16.0 [facility] Comment on above: Performed By: #### C BC #### [facility] [address] [place] [address] Dr. Tasha Dodson IG # 0.06 10e3/ul Critically high 0.00-0.03 [facility] Comment on above: Performed By: #### C BC #### [facility] [address] [place] [address] Dr. Tasha Dodson IG % 0.5 % Normal 0.0-0.5 [facility] Comment on above: Performed By: #### C BC #### [facility] [address] [place] [address] Dr. Tasha Dodson LYMPH # 2.0 103/ul Normal 1.2-3.8 [facility] Comment on above: Performed By: #### C BC #### [facility] [address] [place] [address] Dr. Tasha Dodson Lymphocytes/100 WBC (Bld) 15.7 % Critically low 20.5-60.0 [facility] Comment on above: Performed By: #### C BC #### [facility] [address] [place] [address] Dr. Tasha Dodson MANUAL DIFF REQ NO Normal [facility] Comment on above: Performed By: #### C BC #### [facility] [address] [place] [address] Dr. Tasha Dodson MCH (RBC) [Entitic mass] 31.0 pg Normal 26.7-34.0 [facility] Comment on above: Performed By: #### C BC #### [facility] [address] [place] [address] Dr. Tasha Dodson MCHC (RBC) [Mass/Vol] 36.4 g/dL Critically high 29.9-35.2 [facility] Comment on above: Performed By: #### C BC #### [facility] [address] [place] [address] Dr. Tasha Dodson MCV (RBC) [Entitic vol] 85.1 fL Normal 81.0-99.0 [facility] Comment on above: Performed By: #### C BC #### [facility] [address] [place] [address] Dr. Tasha Dodson MONO # 1.1 103/ul Critically high 0.3-0.8 [facility] Comment on above: Performed By: #### C BC #### [facility] [address] [place] [address] Dr. Tasha Dodson Monocytes/100 WBC (Bld) 8.3 % Normal 1.7-12.0 [facility] Comment on above: Performed By: #### C BC #### [facility] [address] [place] [address] Dr. Tasha Dodson NEUT # 9.5 103/ul Critically high 1.4-6.5 [facility] Comment on above: Performed By: #### C BC #### [facility] [address] [place] [address] Dr. Tasha Dodson Neutrophils/100 WBC (Bld) 73.0 % Normal 43.0-75.0 [facility] Comment on above: Performed By: #### C BC #### [facility] [address] [place] [address] Dr. Tasha Dodson Platelet mean volume (Bld) [Entitic vol] 8.3 fL Critically low 9.5-13.5 [facility] Comment on above: Performed By: #### C BC #### [facility] [address] [place] [address] Dr. Tasha Dodson PLT 408 103/ul Normal 150-450 [facility] Comment on above: Performed By: #### C BC #### [facility] [address] [place] [address] Dr. Tasha Dodson RBC 4.16 106/ul Critically low 4.20-5.40 [facility] Comment on above: Performed By: #### C BC #### [facility] [address] [place] [address] Dr. Tasha Dodson WBC 13.0 103/ul Critically high 4.0-11.0 [facility] Comment on above: Performed By: #### C BC #### [facility] [address] [place] [address] Dr. Tasha Dodson CULTURE SPUTUMon 12-27-2021 CULTURE SPUTUM Culture Observations: NORMAL RESPIRATORY AMADOU. Normal [facility] Comment on above: Performed By: #### C BC #### [facility] [address] [place] [address] Dr. Tasha Dodson PROF 14(COMP METB)on 022 Albumin [Mass/Vol] 3.4 g/dL Normal 3.4-5.0 [facility] Comment on above: Performed By: #### C MADM, LIPA, BNP, CMP #### [facility] [address] [place] [address] Dr. Tasha Dodson Albumin/Globulin [Mass ratio] 1.0 {ratio} Normal [facility] Comment on above: Performed By: #### C MADM, LIPA, BNP, CMP #### [facility] [address] [place] [address] Dr. Tasha Dodson ALP [Catalytic activity/Vol] 54 U/L Normal 46-116 [facility] Comment on above: Performed By: #### C MADM, LIPA, BNP, CMP #### [facility] [address] [place] [address] Dr. Tasha Dodson ALT [Catalytic activity/Vol] 20 U/L Normal 14-59 [facility] Comment on above: Performed By: #### C MADM, LIPA, BNP, CMP #### [facility] [address] [place] [address] Dr. Tasha Dodson Anion gap [Moles/Vol] 10.8 mmol/L Normal [facility] Comment on above: Performed By: #### C MADM, LIPA, BNP, CMP #### [facility] [address] [place] [address] Dr. Tasha Dodson AST [Catalytic activity/Vol] 19 U/L Normal 15-37 [facility] Comment on above: Performed By: #### C MADM, LIPA, BNP, CMP #### [facility] [address] [place] [address] Dr. Tasha Dodson Bilirubin [Mass/Vol] 0.5 mg/dL Normal 0.2-1.0 [facility] Comment on above: Performed By: #### C MADM, LIPA, BNP, CMP #### [facility] [address] [place] [address] Dr. Tasha Dodson Calcium [Mass/Vol] 8.3 mg/dL Critically low 8.5-10.1 Th e [facility] Comment on above: Performed By: #### C MADM, LIPA, BNP, CMP #### [facility] [address] [place] [address] Dr. Tasha Dodson Chloride [Moles/Vol] 89 mmol/L Critically low 98-107 [facility] Comment on above: Performed By: #### C MADM, LIPA, BNP, CMP #### [facility] [address] [place] [address] Dr. Tasha Dodson CO2 [Moles/Vol] 27.0 mmol/L Normal 21.0-32.0 [facility] Comment on above: Performed By: #### C MADM, LIPA, BNP, CMP #### [facility] [address] [place] [address] Dr. Tasha Dodson Creatinine [Mass/Vol] 0.69 mg/dL Normal 0.55-1.02 [facility] Comment on above: Performed By: #### C MADM, LIPA, BNP, CMP #### [facility] [address] [place] [address] Dr. Tasha Dodson EGFR-AF AFGHAN >60 Normal >=60 [facility] Comment on above: Performed By: #### C MADM, LIPA, BNP, CMP #### [facility] [address] [place] [address] Dr. Tasha Dodson EGFR-NON AF AFGHAN >60 Normal >=60 [facility] Comment on above: Performed By: #### C MADM, LIPA, BNP, CMP #### [facility] [address] [place] [address] Dr. Tasha Dodson Globulin (S) [Mass/Vol] 3.3 g/dL Normal [facility] Comment on above: Performed By: #### C MADM, LIPA, BNP, CMP #### [facility] [address] [place] [address] Dr. Tasha Dodson Glucose [Mass/Vol] 115 mg/dL Critically high 74-106 [facility] Comment on above: Performed By: #### C MADM, LIPA, BNP, CMP #### [facility] [address] [place] [address] Dr. Tasha Dodson Potassium [Moles/Vol] 2.7 mmol/L Critically low 3.5-5.1 [facility] Comment on above: Result Comment: Test Repeated. Critical Value Verified Performed By: #### C MADM, LIPA, BNP, CMP #### [facility] [address] [place] [address] Dr. Tasha Dodson Protein [Mass/Vol] 6.7 g/dL Normal 6.4-8.2 [facility] Comment on above: Performed By: #### C MADM, LIPA, BNP, CMP #### [facility] [address] [place] [address] Dr. Tasha Dodson Sodium [Moles/Vol] 123 mmol/L Critically low 136-145 Th [facility] Comment on above: Result Comment: Test Repeated. Critical Value Verified Performed By: #### C MADM, LIPA, BNP, CMP #### [facility] [address] [place] [address] Dr. Tasha Dodson Urea nitrogen [Mass/Vol] 6.0 mg/dL Critically low 7.0-18. 0 [facility] Comment on above: Performed By: #### C MADM, LIPA, BNP, CMP #### [facility] [address] [place] [address] Dr. Tasha Dodson Urea nitrogen/Creatinine [Mass ratio] 8.7 mg/mg Normal [facility] Comment on above: Performed By: #### C MADM, LIPA, BNP, CMP #### [facility] [address] [address] [address] Tasha Dodson SPUTUM GRAM STAINon 12-28-19 COMMENTS Normal [facility] Comment on above: Performed By: #### T SH, BMP #### [facility] [address] [address] [address] Tasha Dodson DIPHTHEROIDS Normal [facility] Comment on above: Performed By: #### T SH, BMP #### [facility] [address] [address] [address] Tasha Dodson EPITHELIALS <25 Normal [facility] Comment on above: Performed By: #### T SH, BMP #### [facility] [address] [address] [address] Tasha Dodson FUNGAL ELEMENTS Normal [facility] Comment on above: Performed By: #### T SH, BMP #### [facility] [address] [place] [address] Dr. Tasha Dodson GRAM NEG BACILLI Normal [facility] Comment on above: Performed By: #### T SH, BMP #### [facility] [address] [place] [address] Dr. Tasha Dodson GRAM NEG DIPPLOCOCCI Normal [facility] Comment on above: Performed By: #### T SH, BMP #### [facility] [address] [place] [address] Dr. Tasha Dodson GRAM POS BACILLI Normal [facility] Comment on above: Performed By: #### T SH, BMP #### [facility] [address] [address] [address] Tasha Dodson GRAM POSITIVE COCCI MODERATE Normal [facility] Comment on above: Performed By: #### T SH, BMP #### [facility] [address] [address] [address] Tasha Dodson WBC (Bld) [#/Vol] 10*3/uL Normal [facility] Comment on above: Performed By: #### T SH, BMP #### [facility] [address] [place] [address] Dr. Tasha Dodson BNPon 12-26-2021 Natriuretic peptide B (Bld) [Mass/Vol] 148.0 pg/mL Normal <=1,800.0 [facility] Comment on above: Performed By: #### C MADM, LIPA, BNP, CMP #### [facility] [address] [place] [address] Dr. Tasha Dodson CARDIAC ANGELO ADMITon 022 CK [Catalytic activity/Vol] 139 U/L Normal 26-192 [facility] Comment on above: Performed By: #### C MADM, LIPA, BNP, CMP #### [facility] [address] [place] [address] Dr. Tasha Dodson CK.MB [Mass/Vol] 2.43 ng/mL Normal <=3.60 [facility] Comment on above: Performed By: #### C MADM, LIPA, BNP, CMP #### [facility] [address] [place] [address] Dr. Tasha Dodson HSTROP 12.2 pg/mL Normal 4.0-51.3 [facility] Comment on above: Result Comment: CUT- OFF POINTS HAVE BEEN ESTABLISHED BASED ON THE FOURTH UNIVERSAL DEFINITIONS OF MYOCARDIAL INFARCTION. THE UPPER REFERENCE LIMIT (URL) OF TROPONIN, DEFINED THE 99TH PERCENTILE OF cTnI DISTRIBUTION IN A REFERENCE POPULATION, HAS BEEN CONFIRMED THE DECISION THRESHOLD FOR WI DIAGNOSIS. Performed By: #### C MADM, LIPA, BNP, CMP #### [facility] [address] [place] [address] Dr. Tasha Dodson ELIZABETH 110 ng/mL Critically high 9-82 [facility] Comment on above: Performed By: #### C MADM, LIPA, BNP, CMP #### [facility] [address] [place] [address] Dr. Tasha Dodson CBC AUTO DIFFon 12-26-2021 BASO # 0.0 103/ul Normal 0.0-0.1 [facility] Comment on above: Performed By: #### C MADM, LIPA, BNP, CMP #### [facility] [address] [place] [address] Dr. Tasha Dodson Basophils/100 WBC (Bld) 0.3 % Normal 0.2-2.0 [facility] Comment on above: Performed By: #### C MADM, LIPA, BNP, CMP #### [facility] [address] [place] [address] Dr. Tasha Dodson EO # 0.1 103/ul Normal 0.0-0.7 [facility] Comment on above: Performed By: #### C MADM, LIPA, BNP, CMP #### [facility] [address] [place] [address] Dr. Tasha Dodson Eosinophils/100 WBC (Bld) 0.7 % Critically low 0.9-7.0 [facility] Comment on above: Performed By: #### C MADM, LIPA, BNP, CMP #### [facility] [address] [place] [address] Dr. Tasha Dodson Erythrocyte distribution width (RBC) [Ratio] 12.4 % Normal 11.0-15.0 [facility] Comment on above: Performed By: #### C MADM, LIPA, BNP, CMP #### [facility] [address] [place] [address] Dr. Tasha Dodson Hematocrit (Bld) [Volume fraction] 38.9 % Normal 36.0-48.0 [facility] Comment on above: Performed By: #### C MADM, LIPA, BNP, CMP #### [facility] [address] [place] [address] Dr. Tasha Dodson Hemoglobin (Bld) [Mass/Vol] 14.4 g/dL Normal 12.0-16.0 [facility] Comment on above: Performed By: #### C MADM, LIPA, BNP, CMP #### [facility] [address] [place] [address] Dr. Tasha Dodson IG # 0.08 10e3/ul Critically high 0.00-0.03 [facility] Comment on above: Performed By: #### C MADM, LIPA, BNP, CMP #### [facility] [address] [place] [address] Dr. Tasha Dodson IG % 0.5 % Normal 0.0-0.5 [facility] Comment on above: Performed By: #### C MADM, LIPA, BNP, CMP #### [facility] [address] [place] [address] Dr. Tasha Dodson LYMPH # 2.2 103/ul Normal 1.2-3.8 [facility] Comment on above: Performed By: #### C MADM, LIPA, BNP, CMP #### [facility] [address] [place] [address] Dr. Tasha Dodson Lymphocytes/100 WBC (Bld) 15.0 % Critically low 20.5-60.0 [facility] Comment on above: Performed By: #### C MADM, LIPA, BNP, CMP #### [facility] [address] [place] [address] Dr. Tasha Dodson MANUAL DIFF REQ NO Normal [facility] Comment on above: Performed By: #### C MADM, LIPA, BNP, CMP #### [facility] [address] [place] [address] Dr. Tasha Dodson MCH (RBC) [Entitic mass] 31.6 pg Normal 26.7-34.0 [facility] Comment on above: Performed By: #### C MADM, LIPA, BNP, CMP #### [facility] [address] [place] [address] Dr. Tasha Dodson MCHC (RBC) [Mass/Vol] 37.0 g/dL Critically high 29.9-35.2 [facility] Comment on above: Performed By: #### C MADM, LIPA, BNP, CMP #### [facility] [address] [place] [address] Dr. Tasha Dodson MCV (RBC) [Entitic vol] 85.3 fL Normal 81.0-99.0 [facility] Comment on above: Performed By: #### C MADM, LIPA, BNP, CMP #### [facility] [address] [place] [address] Dr. Tasha Dodson MONO # 1.0 103/ul Critically high 0.3-0.8 [facility] Comment on above: Performed By: #### C MADM, LIPA, BNP, CMP #### [facility] [address] [address] [address] Tasha Dodson Monocytes/100 WBC (Bld) 6.8 % Normal 1.7-12.0 [facility] Comment on above: Performed By: #### C MADM, LIPA, BNP, CMP #### [facility] [address] [place] [address] Dr. Tasha Dodson NEUT # 11.5 103/ul Critically high 1.4-6.5 [facility] Comment on above: Performed By: #### C MADM, LIPA, BNP, CMP #### [facility] [address] [place] [address] Dr. Tasha Dodson Neutrophils/100 WBC (Bld) 76.7 % Critically high 43.0-75.0 [facility] Comment on above: Performed By: #### C MADM, LIPA, BNP, CMP #### [facility] [address] [place] [address] Dr. Tasha Dodson Platelet mean volume (Bld) [Entitic vol] 8.6 fL Critically low 9.5-13.5 [facility] Comment on above: Performed By: #### C MADM, LIPA, BNP, CMP #### [facility] [address] [place] [address] Dr. Tasha Dodson PLT 491 103/ul Critically high 150-450 [facility] Comment on above: Performed By: #### C MADM, LIPA, BNP, CMP #### [facility] [address] [place] [address] Dr. Tasha Dodson RBC 4.56 106/ul Normal 4.20-5.40 [facility] Comment on above: Performed By: #### C MADM, LIPA, BNP, CMP #### [facility] [address] [place] [address] Dr. Tasha Dodson WBC 15.0 103/ul Critically high 4.0-11.0 [facility] Comment on above: Performed By: #### C MADM, LIPA, BNP, CMP #### [facility] [address] [place] [address] Dr. Tasha Dodson CULTURE URINEon 12-26-2021 CULTURE URINE Culture Observations: LIGHT GROWTH OF MIXED GENITAL AMADOU. NO POTENTIAL PATHOGENS SEEN. Normal [facility] Comment on above: Performed By: #### C BC #### [facility] [address] [place] [address] Dr. Tasha Dodson Covid-19 PCR ([facility])on SARS-CoV-2 (COVID-19) RNA CARITO+probe Ql (Unsp spec) Not detected Normal NOT DETECTED [facility] Comment on above: Result Comment: When [...] for this test is supported by the Communication Assistant of Health and Human Service's declaration that [...] #### C MADM, LIPA, BNP, CMP #### [facility] [address] [place] [address] Dr. Tasha Dodson ER URINE PROFILEon Bilirubin Ql (U) Negative Normal NEGATIVE [facility] Comment on above: Performed By: #### T JESI, BMP #### [facility] [address] [place] [address] Dr. Tasha Dodson Clarity (U) CLEAR Normal CLEAR [facility] Comment on above: Performed By: #### T SH, BMP #### [facility] [address] [place] [address] Dr. Tasha Dodson Color (U) LT. YELLOW Normal YELLOW [facility] Comment on above: Performed By: #### T SH, BMP #### [facility] [address] [place] [address] Dr. Tasha FERNANDES A micrscopic examination will be performed if indicated. Normal [facility] Comment on above: Performed By: #### T SH, BMP #### [facility] [address] [place] [address] Dr. Tasha Dodson Glucose Ql (U) Negative Normal NEGATIVE [facility] Comment on above: Performed By: #### T SH, BMP #### [facility] [address] [place] [address] Dr. Tasha Dodson Hemoglobin Ql (U) TRACE-INTACT Abnormal NEGATIVE [facility] Comment on above: Performed By: #### T SH, BMP #### [facility] [address] [place] [address] Dr. Tasha Dodson Ketones Ql (U) TRACE Abnormal NEGATIVE [facility] Comment on above: Performed By: #### T SH, BMP #### [facility] [address] [place] [address] Dr. Tasha Dodson LEUKOCYTES Negative Normal NEGATIVE [facility] Comment on above: Performed By: #### T SH, BMP #### [facility] [address] [place] [address] Dr. Tasha Dodson Nitrite Ql (U) Negative Normal NEGATIVE [facility] Comment on above: Performed By: #### T SH, BMP #### [facility] [address] [place] [address] Dr. Tasha Dodson pH (U) 7.0 [pH] Normal 5-9 [facility] Comment on above: Performed By: #### T SH, BMP #### [facility] [address] [place] [address] Dr. Tasha Dodson SPEC GRAVITY 1.010 Normal 1.005-<=1.02 5 [facility] Comment on above: Performed By: #### T SH, BMP #### [facility] [address] [place] [address] Dr. Tasha Dodson UA PROTEIN Negative Normal NEGATIVE/ TRACE [facility] Comment on above: Performed By: #### T SH, BMP #### [facility] [address] [place] [address] Dr. Tasha Dodson UR MICRO IND INDICATED Normal [facility] Comment on above: Performed By: #### T SH, BMP #### [facility] [address] [place] [address] Dr. Tasha Dodson Urobilinogen Qn (U) 0.2 {Juan'U}/dL Normal 0.2 - 1. 0 [facility] Comment on above: Performed By: #### T SH, BMP #### [facility] [address] [place] [address] Dr. Tasha Dodson INFLUENZA A AND B AGon 12-26 INFLUANE SEE BELOW Normal [facility] Comment on above: Result Comment: Nega tive for Flu A protein angiten. Infection due to Flu A cannot be ruled out. Flu A angiten in the sample may be below the detection limit of the test. Performed By: #### C BC #### [facility] [address] [place] [address] Dr. Tasha Dodson INFLUBNEGH SEE BELOW Normal [facility] Comment on above: Result Comment: Nega tive for Flu B protein antigen. Infection due to Flu B cannot be ruled out. Flu B antigen in the sample may be below the detection limit of the test. Performed By: #### C BC #### [facility] [address] [place] [address] Dr. Tasha Dodson INFLUENZA A AG Negative Normal NEGATIVE SEE COMMENT [facility] Comment on above: Performed By: #### C BC #### [facility] [address] [place] [address] Dr. Tasha Dodson INFLUENZA B AG Negative Normal NEGATIVE SEE COMMENT [facility] Comment on above: Performed By: #### C BC #### [facility] [address] [place] [address] Dr. Tasha Dodson INTERNAL CONTROLS Within Normal Limits Normal Within Normal Limits [facility] Comment on above: Performed By: #### C BC #### [facility] [address] [place] [address] Dr. Tasha Dodson LACTATE/LACTIC ACIDon 2021 Lactate [Moles/Vol] 1.5 mmol/L Normal 0.4-1.9 [facility] Comment on above: Performed By: #### T SH, BMP #### [facility] [address] [address] [address] Tasha Dodson LIPASEon 12-26-2021 Lipase [Catalytic activity/Vol] 96.0 U/L Normal 73.0-393.0 [facility] Comment on above: Performed By: #### C MADM, LIPA, BNP, CMP #### [facility] [address] [place] [address] Dr. Tasha Dodson PROF 14(COMP METB)on 022 Albumin [Mass/Vol] 4.2 g/dL Normal 3.4-5.0 [facility] Comment on above: Performed By: #### C MADM, LIPA, BNP, CMP #### [facility] [address] [place] [address] Dr. Tasha Dodson Albumin/Globulin [Mass ratio] 1.1 {ratio} Normal [facility] Comment on above: Performed By: #### C MADM, LIPA, BNP, CMP #### [facility] [address] [place] [address] Dr. Tasha Dodson ALP [Catalytic activity/Vol] 68 U/L Normal 46-116 [facility] Comment on above: Performed By: #### C MADM, LIPA, BNP, CMP #### [facility] [address] [place] [address] Dr. Tasha Dodson ALT [Catalytic activity/Vol] 23 U/L Normal 14-59 [facility] Comment on above: Performed By: #### C MADM, LIPA, BNP, CMP #### [facility] [address] [place] [address] Dr. Tasha Dodson Anion gap [Moles/Vol] 12.3 mmol/L Normal [facility] Comment on above: Performed By: #### C MADM, LIPA, BNP, CMP #### [facility] [address] [place] [address] Dr. Tasha Dodson AST [Catalytic activity/Vol] 25 U/L Normal 15-37 [facility] Comment on above: Performed By: #### C MADM, LIPA, BNP, CMP #### [facility] [address] [address] [address] Tasha Dodson Bilirubin [Mass/Vol] 0.7 mg/dL Normal 0.2-1.0 [facility] Comment on above: Performed By: #### C MADM, LIPA, BNP, CMP #### [facility] [address] [address] [address] Tasha Dodson Calcium [Mass/Vol] 9.5 mg/dL Normal 8.5-10.1 [facility] Comment on above: Performed By: #### C MADM, LIPA, BNP, CMP #### [facility] [address] [place] [address] Dr. Tasha Dodson Chloride [Moles/Vol] 80 mmol/L Critically low 98-107 [facility] Comment on above: Performed By: #### C MADM, LIPA, BNP, CMP #### [facility] [address] [address] [address] Tasha Dodson CO2 [Moles/Vol] 27.1 mmol/L Normal 21.0-32.0 [facility] Comment on above: Performed By: #### C MADM, LIPA, BNP, CMP #### [facility] [address] [place] [address] Dr. Tasha Dodson Creatinine [Mass/Vol] 0.85 mg/dL Normal 0.55-1.02 [facility] Comment on above: Performed By: #### C MADM, LIPA, BNP, CMP #### [facility] [address] [place] [address] Dr. Tasha Dodson EGFR-AF AFGHAN >60 Normal >=60 [facility] Comment on above: Performed By: #### C MADM, LIPA, BNP, CMP #### [facility] [address] [place] [address] Dr. Tasha Dodson EGFR-NON AF AFGHAN >60 Normal >=60 [facility] Comment on above: Performed By: #### C MADM, LIPA, BNP, CMP #### [facility] [address] [place] [address] Dr. Tasha Dodson Globulin (S) [Mass/Vol] 3.9 g/dL Normal [facility] Comment on above: Performed By: #### C MADM, LIPA, BNP, CMP #### [facility] [address] [place] [address] Dr. Tasha Dodson Glucose [Mass/Vol] 132 mg/dL Critically high 74-106 [facility] Comment on above: Performed By: #### C MADM, LIPA, BNP, CMP #### [facility] [address] [place] [address] Dr. Tasha Dodson Potassium [Moles/Vol] 2.4 mmol/L Critically low 3.5-5.1 [facility] Comment on above: Performed By: #### C MADM, LIPA, BNP, CMP #### [facility] [address] [place] [address] Dr. Tasha Dodson Protein [Mass/Vol] 8.1 g/dL Normal 6.4-8.2 [facility] Comment on above: Performed By: #### C MADM, LIPA, BNP, CMP #### [facility] [address] [place] [address] Dr. Tasha Dodson Sodium [Moles/Vol] 116 mmol/L Critically low 136-145 [facility] Comment on above: Performed By: #### C MADM, LIPA, BNP, CMP #### [facility] [address] [place] [address] Dr. Tasha Dodson Urea nitrogen [Mass/Vol] 12.0 mg/dL Normal 7.0-18.0 [facility] Comment on above: Performed By: #### C MADM, LIPA, BNP, CMP #### [facility] [address] [place] [address] Dr. Tasha Dodson Urea nitrogen/Creatinine [Mass ratio] 14.1 mg/mg Normal [facility] Comment on above: Performed By: #### C MADM, LIPA, BNP, CMP #### [facility] [address] [place] [address] Dr. Tasha Dodson PROF CHEM 8 (BAS METB)on Anion gap [Moles/Vol] 11.4 mmol/L Normal [facility] Comment on above: Performed By: #### T SH, BMP #### [facility] [address] [place] [address] Dr. Tasha Dodson Calcium [Mass/Vol] 8.4 mg/dL Critically low 8.5-10.1 [facility] Comment on above: Performed By: #### T SH, BMP #### [facility] [address] [place] [address] Dr. Tasha Dodson Chloride [Moles/Vol] 89 mmol/L Critically low 98-107 [facility] Comment on above: Performed By: #### T SH, BMP #### [facility] [address] [place] [address] Dr. Tasha Dodson CO2 [Moles/Vol] 25.5 mmol/L Normal 21.0-32.0 [facility] Comment on above: Performed By: #### T SH, BMP #### [facility] [address] [place] [address] Dr. Tasha Dodson Creatinine [Mass/Vol] 0.89 mg/dL Normal 0.55-1.02 [facility] Comment on above: Performed By: #### T SH, BMP #### [facility] [address] [place] [address] Dr. Tasha Dodson EGFR-AF AFGHAN >60 Normal >=60 [facility] Comment on above: Performed By: #### T SH, BMP #### [facility] [address] [place] [address] Dr. Tasha Dodson EGFR-NON AF AFGHAN 60 mL/min/1.73m2 Normal >=60 [facility] Comment on above: Performed By: #### T SH, BMP #### [facility] [address] [place] [address] Dr. Tasha Dodson Glucose [Mass/Vol] 166 mg/dL Critically high 74-106 T [facility] Comment on above: Performed By: #### T JESI, BMP #### [facility] [address] [place] [address] Dr. Tasha Dodson Potassium [Moles/Vol] 3.0 mmol/L Critically low 3.5-5.1 [facility] Comment on above: Performed By: #### T JESI, BMP #### [facility] [address] [place] [address] Dr. Tasha Dodson Sodium [Moles/Vol] 123 mmol/L Critically low 136-145 [facility] Comment on above: Performed By: #### T JESI, BMP #### [facility] [address] [place] [address] Dr. Tasha Dodson Urea nitrogen [Mass/Vol] 9.0 mg/dL Normal 7.0-18.0 [facility] Comment on above: Performed By: #### T JESI, BMP #### [facility] [address] [place] [address] Dr. Tasha Dodson Urea nitrogen/Creatinine [Mass ratio] 10.1 mg/mg Normal [facility] Comment on above: Performed By: #### T JESI, BMP #### [facility] [address] [place] [address] Dr. Tasha Dodson PROTIMEon 12-26-2021 INR Coag (PPP) [Relative time] 0.96 {INR} Normal [facility] Comment on above: Performed By: #### T JESI, BMP #### [facility] [address] [place] [address] Dr. Tasha Dodson INR GUIDELINES SEE BELOW Normal [facility] Comment on above: Result Comment: JO RED INR: 2.0 - 3.0 CONDITIONS NOT LISTED BELOW 2.5 - 3.5 FOR PROSTHETIC HEART VALVE REPLACEMENT 2.5 - 3.5 RECURRENT THROMBOSIS Performed By: #### T JESI, BMP #### [facility] [address] [place] [address] Dr. Tasha Dodson PT Coag (PPP) [Time] 10.4 s Normal 9.0-11.6 [facility] Comment on above: Performed By: #### T JESI, BMP #### [facility] [address] [place] [address] Dr. Tasha Dodson PTTon 12-26-2021 aPTT Coag (Bld) [Time] 26.2 s Normal 22.3-36.2 [facility] Comment on above: Performed By: #### T SH, BMP #### [facility] [address] [place] [address] Dr. Tasha Dodson SODIUM RANDOM URINEon 2021 Sodium (U) [Moles/Vol] 71 mmol/L Normal 30-90 [facility] Comment on above: Performed By: #### T JESI, BMP #### [facility] [address] [place] [address] Dr. Tasha Dodson T4on 12-26-2021 T4 [Mass/Vol] 10.60 ug/dL Normal 4.80-13.90 [facility] Comment on above: Performed By: #### C BC #### [facility] [address] [place] [address] Dr. Tasha Dodson TSHon 12-26-2021 TSH 5.236 uIU/mL Critically high 0.358-3.740 [facility] Comment on above: Performed By: #### C BC #### [facility] [address] [place] [address] Dr. Tasha Dodson URINE MICROSCOPIC ONLYon BACTERIA TRACE Abnormal NONE SEEN [facility] Comment on above: Performed By: #### T JESI, BMP #### [facility] [address] [place] [address] Dr. Tasha Dodson Bacteria identified Cx Nom (U) NOT INDICATED Normal [facility] Comment on above: Performed By: #### T SH, BMP #### [facility] [address] [place] [address] Dr. Tasha Dodson CAST NONE SEEN Normal NONE SEEN [facility] Comment on above: Performed By: #### T SH, BMP #### [facility] [address] [place] [address] Dr. Tasha Dodson Crystals LM Nom (Urine sed) NONE SEEN Normal NONE SEEN [facility] Comment on above: Performed By: #### T SH, BMP #### [facility] [address] [address] [address] Tasha Dodson Epithelial cells LM Ql (Urine sed) NONE SEEN Normal NONE SEEN /RARE [facility] Comment on above: Performed By: #### T SH, BMP #### [facility] [address] [address] [address] Tasha Dodson MUCOUS NONE SEEN Normal NONE SEEN [facility] Comment on above: Performed By: #### T SH, BMP #### [facility] [address] [address] [address] Tasha Dodson RBC 0-2 Normal 0-2 [facility] Comment on above: Performed By: #### T SH, BMP #### [facility] [address] [place] [address] Dr. Tasha Dodson WBC 0-2 Abnormal NONE SEEN [facility] Comment on above: Performed By: #### T SH, BMP #### [facility] [address] [address] [address] Tasha Dodson XR CHEST 1 Von [...] TING MIXON Date: 2021-12-26 11:32 Normal [facility] XR LSPINE MIN 4 VIEWSon 11-20 [...] JESUS BRUNO Date: 2021-11-30 22:52 Normal [facility] CBC AUTO DIFFon 11-09-2021 BASO # 0.1 103/ul Normal 0.0-0.1 [facility] Comment on above: Performed By: #### C MADM, LIPA, BNP, CMP #### [facility] [address] [place] [address] Dr. Tasha Dodson Basophils/100 WBC (Bld) 0.7 % Normal 0.2-2.0 [facility] Comment on above: Performed By: #### C MADM, LIPA, BNP, CMP #### [facility] [address] [place] [address] Dr. Tasha Dodson EO # 0.2 103/ul Normal 0.0-0.7 [facility] Comment on above: Performed By: #### C MADM, LIPA, BNP, CMP #### [facility] [address] [place] [address] Dr. Tasha Dodson Eosinophils/100 WBC (Bld) 1.8 % Normal 0.9-7.0 [facility] Comment on above: Performed By: #### C MADM, LIPA, BNP, CMP #### [facility] [address] [place] [address] Dr. Tasha Dodson Erythrocyte distribution width (RBC) [Ratio] 13.0 % Normal 11.0-15.0 [facility] Comment on above: Performed By: #### C MADM, LIPA, BNP, CMP #### [facility] [address] [place] [address] Dr. Tasha Dodson Hematocrit (Bld) [Volume fraction] 33.8 % Critically low 36.0-48.0 [facility] Comment on above: Performed By: #### C MADM, LIPA, BNP, CMP #### [facility] [address] [place] [address] Dr. Tasha Dodson Hemoglobin (Bld) [Mass/Vol] 12.5 g/dL Normal 12.0-16.0 [facility] Comment on above: Performed By: #### C MADM, LIPA, BNP, CMP #### [facility] [address] [place] [address] Dr. Tasha Dodson IG # 0.02 10e3/ul Normal 0.00-0.03 [facility] Comment on above: Performed By: #### C MADM, LIPA, BNP, CMP #### [facility] [address] [place] [address] Dr. Tasha Dodson IG % 0.2 % Normal 0.0-0.5 [facility] Comment on above: Performed By: #### C MADM, LIPA, BNP, CMP #### [facility] [address] [place] [address] Dr. Tasha Dodson LYMPH # 2.9 103/ul Normal 1.2-3.8 [facility] Comment on above: Performed By: #### C MADM, LIPA, BNP, CMP #### [facility] [address] [place] [address] Dr. Tasha Dodson Lymphocytes/100 WBC (Bld) 29.4 % Normal 20.5-60.0 [facility] Comment on above: Performed By: #### C MADM, LIPA, BNP, CMP #### [facility] [address] [place] [address] Dr. Tasha Dodson MANUAL DIFF REQ NO Normal [facility] Comment on above: Performed By: #### C MADM, LIPA, BNP, CMP #### [facility] [address] [place] [address] Dr. Tasha Dodson MCH (RBC) [Entitic mass] 34.1 pg Critically high 26.7-3 4.0 [facility] Comment on above: Performed By: #### C MADM, LIPA, BNP, CMP #### [facility] [address] [place] [address] Dr. Tasha Dodson MCHC (RBC) [Mass/Vol] 37.0 g/dL Critically high 29.9-35.2 [facility] Comment on above: Performed By: #### C MADM, LIPA, BNP, CMP #### [facility] [address] [place] [address] Dr. Tasha Dodson MCV (RBC) [Entitic vol] 92.1 fL Normal 81.0-99.0 [facility] Comment on above: Performed By: #### C MADM, LIPA, BNP, CMP #### [facility] [address] [place] [address] Dr. Tasha Dodson MONO # 0.8 103/ul Normal 0.3-0.8 [facility] Comment on above: Performed By: #### C MADM, LIPA, BNP, CMP #### [facility] [address] [place] [address] Dr. Tasha Dodson Monocytes/100 WBC (Bld) 8.2 % Normal 1.7-12.0 [facility] Comment on above: Performed By: #### C MADM, LIPA, BNP, CMP #### [facility] [address] [place] [address] Dr. Tasha Dodson NEUT # 5.9 103/ul Normal 1.4-6.5 [facility] Comment on above: Performed By: #### C MADM, LIPA, BNP, CMP #### [facility] [address] [place] [address] Dr. Tasha Dodson Neutrophils/100 WBC (Bld) 59.7 % Normal 43.0-75.0 [facility] Comment on above: Performed By: #### C MADM, LIPA, BNP, CMP #### [facility] [address] [place] [address] Dr. Tasha Dodson Platelet mean volume (Bld) [Entitic vol] 8.9 fL Critically low 9.5-13.5 [facility] Comment on above: Performed By: #### C MADM, LIPA, BNP, CMP #### [facility] [address] [place] [address] Dr. Tasha Dodson PLT 370 103/ul Normal 150-450 [facility] Comment on above: Performed By: #### C MADM, LIPA, BNP, CMP #### [facility] [address] [place] [address] Dr. Tasha Dodson RBC 3.67 106/ul Critically low 4.20-5.40 [facility] Comment on above: Performed By: #### C MADM, LIPA, BNP, CMP #### [facility] [address] [place] [address] Dr. Tasha Dodson WBC 9.9 103/ul Normal 4.0-11.0 [facility] Comment on above: Performed By: #### C MADM, LIPA, BNP, CMP #### [facility] [address] [place] [address] Dr. Tasha Dodson FREE T4on 11-09-2021 Free T4 [Mass/Vol] 1.48 ng/dL Critically high 0.76-1.46 [facility] Comment on above: Performed By: #### F T4 #### [facility] [address] [place] [address] Dr. Tasha Dodson PROF CHEM 8 (BAS METB)on Anion gap [Moles/Vol] 11.1 mmol/L Normal [facility] Comment on above: Performed By: #### T SH, BMP #### [facility] [address] [place] [address] Dr. Tasha Dodson Calcium [Mass/Vol] 9.3 mg/dL Normal 8.5-10.1 [facility] Comment on above: Performed By: #### T SH, BMP #### [facility] [address] [place] [address] Dr. Tasha Dodson Chloride [Moles/Vol] 92 mmol/L Critically low 98-107 [facility] Comment on above: Performed By: #### T SH, BMP #### [facility] [address] [place] [address] Dr. Tasha Dodson CO2 [Moles/Vol] 29.2 mmol/L Normal 21.0-32.0 [facility] Comment on above: Performed By: #### T SH, BMP #### [facility] [address] [place] [address] Dr. Tasha Dodson Creatinine [Mass/Vol] 0.68 mg/dL Normal 0.55-1.02 [facility] Comment on above: Performed By: #### T SH, BMP #### [facility] [address] [place] [address] Dr. Tasha Dodson EGFR-AF AFGHAN >60 Normal >=60 [facility] Comment on above: Performed By: #### T SH, BMP #### [facility] [address] [place] [address] Dr. Tasha Dodson EGFR-NON AF AFGHAN >60 Normal >=60 [facility] Comment on above: Performed By: #### T SH, BMP #### [facility] [address] [place] [address] Dr. Tasha Dodson Glucose [Mass/Vol] 109 mg/dL Critically high 74-106 [facility] Comment on above: Performed By: #### T SH, BMP #### [facility] [address] [place] [address] Dr. Tasha Dodson Potassium [Moles/Vol] 3.3 mmol/L Critically low 3.5-5.1 [facility] Comment on above: Performed By: #### T SH, BMP #### [facility] [address] [place] [address] Dr. Tasha Dodson Sodium [Moles/Vol] 129 mmol/L Critically low 136-145 [facility] Comment on above: Performed By: #### T SH, BMP #### [facility] [address] [place] [address] Dr. Tasha Dodson Urea nitrogen [Mass/Vol] 9.0 mg/dL Normal 7.0-18.0 [facility] Comment on above: Performed By: #### T SH, BMP #### [facility] [address] [place] [address] Dr. Tasha Dodson Urea nitrogen/Creatinine [Mass ratio] 13.2 mg/mg Normal [facility] Comment on above: Performed By: #### T SH, BMP #### [facility] [address] [address] [address] Tasha Dodson TSHon 11-09-2021 TSH 1.193 uIU/mL Normal 0.358-3.740 [facility] Comment on above: Performed By: #### T SH, BMP #### [facility] [address] [address] [address] Tasha Dodson LIPID PROFILEon 08-06-2021 CHOL-HDL RATIO NORM SEE BELOW Normal [facility] Comment on above: Result Comment: 3.3 - 4.4 LOW RISK 4.4 - 7.1 AVERAGE RISK 7.1 - 11.0 MODERATE RISK >11.0 HIGH RISK Performed By: #### C MADM, LIPA, BNP, CMP #### [facility] [address] [place] [address] Dr. Tasha Dodson Cholesterol [Mass/Vol] 198 mg/dL Normal <=200 [facility] Comment on above: Performed By: #### C MADM, LIPA, BNP, CMP #### [facility] [address] [address] [address] Tasha Dodson Cholesterol in HDL [Mass/Vol] 77 mg/dL Critically high 40-60 [facility] Comment on above: Performed By: #### C MADM, LIPA, BNP, CMP #### [facility] [address] [address] [address] Tasha Dodson Cholesterol in LDL [Mass/Vol] 106.0 mg/dL Normal [facility] Comment on above: Performed By: #### C MADM, LIPA, BNP, CMP #### [facility] [address] [address] [address] Tasha Dodson Cholesterol.total/Choles terol in HDL [Mass ratio] 2.6 {ratio} Normal [facility] Comment on above: Performed By: #### C MADM, LIPA, BNP, CMP #### [facility] [address] [place] [address] Dr. Tasha Dodson HDL NORMAL > or = 60 mg/dl - LOW CARDIOVASCULAR RISK <40 mg/dl - HIGH CARDIOVASCULAR RISK Normal [facility] Comment on above: Performed By: #### C MADM, LIPA, BNP, CMP #### [facility] [address] [address] [address] Tasha Dodson LDL CALC NORMAL SEE BELOW Normal [facility] Comment on above: Result Comment: <100 mg/dl OPTIMAL 100 - 129 mg/dl NEAR OR ABOVE OPTIMAL 130 - 159 mg/dl BORDERLINE HIGH 160 - 189 mg/dl HIGH >190 mg/dl VERY HIGH Performed By: #### C MADM, LIPA, BNP, CMP #### [facility] [address] [address] [address] Tasha Dodson Triglyceride [Mass/Vol] 75 mg/dL Normal <=150 [facility] Comment on above: Performed By: #### C MADM, LIPA, BNP, CMP #### [facility] [address] [address] [address] Tasha Dodson VLDL CALC 15.0 mg/dL Normal [facility] Comment on above: Performed By: #### C MADM, LIPA, BNP, CMP #### [facility] [address] [address] [address] Tasha Dodson LIVER PROFILEon 08-06-2021 Albumin [Mass/Vol] 3.7 g/dL Normal 3.4-5.0 [facility] Comment on above: Performed By: #### C MADM, LIPA, BNP, CMP #### [facility] [address] [address] [address] Tasha Dodson Albumin/Globulin [Mass ratio] 1.0 {ratio} Normal [facility] Comment on above: Performed By: #### C MADM, LIPA, BNP, CMP #### [facility] [address] [address] [address] Tasha Dodson ALP [Catalytic activity/Vol] 62 U/L Normal 46-116 [facility] Comment on above: Performed By: #### C MADM, LIPA, BNP, CMP #### [facility] [address] [address] [address] Tasha Dodson ALT [Catalytic activity/Vol] 26 U/L Normal 14-59 [facility] Comment on above: Performed By: #### C MADM, LIPA, BNP, CMP #### [facility] [address] [place] [address] Dr. Tasha Dodson AST [Catalytic activity/Vol] 24 U/L Normal 15-37 [facility] Comment on above: Performed By: #### C MADM, LIPA, BNP, CMP #### [facility] [address] [place] [address] Dr. Tasha Dodson BILI, CONJUGATED 0.1 mg/dL Normal 0.0-0.2 [facility] Comment on above: Performed By: #### C MADM, LIPA, BNP, CMP #### [facility] [address] [place] [address] Dr. Tasha Dodson Bilirubin [Mass/Vol] 0.5 mg/dL Normal 0.2-1.0 [facility] Comment on above: Performed By: #### C MADM, LIPA, BNP, CMP #### [facility] [address] [place] [address] Dr. Tasha Dodson Globulin (S) [Mass/Vol] 3.8 g/dL Normal T [facility] Comment on above: Performed By: #### C MADM, LIPA, BNP, CMP #### [facility] [address] [place] [address] Dr. Tasha Dodson Protein [Mass/Vol] 7.5 g/dL Normal 6.4-8.2 [facility] Comment on above: Performed By: #### C MADM, LIPA, BNP, CMP #### [facility] [address] [place] [address] Dr. Tasha Dodson FREE T4on 07-28-2021 Free T4 [Mass/Vol] 1.32 ng/dL Normal 0.76-1.46 [facility] Comment on above: Performed By: #### T SH, BMP #### [facility] [address] [place] [address] Dr. Tasha Dodson PROF CHEM 8 (BAS METB)on Anion gap [Moles/Vol] 11.6 mmol/L Normal [facility] Comment on above: Performed By: #### B MP, TSH #### [facility] [address] [place] [address] Dr. Tasha Dodson Calcium [Mass/Vol] 9.4 mg/dL Normal 8.5-10.1 [facility] Comment on above: Performed By: #### B MP, TSH #### [facility] [address] [place] [address] Dr. Tasha Dodson Chloride [Moles/Vol] 93 mmol/L Critically low 98-107 [facility] Comment on above: Performed By: #### B MP, TSH #### [facility] [address] [place] [address] Dr. Tasha Dodson CO2 [Moles/Vol] 29.8 mmol/L Normal 21.0-32.0 [facility] Comment on above: Performed By: #### B MP, TSH #### [facility] [address] [place] [address] Dr. Tasha Dodson Creatinine [Mass/Vol] 0.74 mg/dL Normal 0.55-1.02 [facility] Comment on above: Performed By: #### B MP, TSH #### [facility] [address] [place] [address] Dr. Tasha Dodson EGFR-AF AFGHAN >60 Normal >=60 [facility] Comment on above: Performed By: #### B MOOSE, TSH #### [facility] [address] [place] [address] Dr. Tasha Dodson EGFR-NON AF AFGHAN >60 Normal >=60 [facility] Comment on above: Performed By: #### B MP, TSH #### [facility] [address] [place] [address] Dr. Tasha Dodson Glucose [Mass/Vol] 114 mg/dL Critically high 74-106 [facility] Comment on above: Performed By: #### B MP, TSH #### [facility] [address] [place] [address] Dr. Tasha Dodson Potassium [Moles/Vol] 3.4 mmol/L Critically low 3.5-5.1 [facility] Comment on above: Performed By: #### B MP, TSH #### [facility] [address] [place] [address] Dr. Tasha Dodosn Sodium [Moles/Vol] 131 mmol/L Critically low 136-145 [facility] Comment on above: Performed By: #### B MP, TSH #### [facility] [address] [place] [address] Dr. Tasha Dodson Urea nitrogen [Mass/Vol] 12.0 mg/dL Normal 7.0-18.0 [facility] Comment on above: Performed By: #### B MP, TSH #### [facility] [address] [place] [address] Dr. Tasha Dodson Urea nitrogen/Creatinine [Mass ratio] 16.2 mg/mg Normal [facility] Comment on above: Performed By: #### B MP, TSH #### [facility] [address] [place] [address] Dr. Tasha Dodson TSHon 07-28-2021 TSH 1.790 uIU/mL Normal 0.358-3.740 [facility] Comment on above: Performed By: #### B MP, TSH #### [facility] [address] [place] [address] Dr. Tasha Dodson TSH RANGE SEE BELOW Normal [facility] Comment on above: Result Comment: <0.3 4 UIU/ml HYPERTHYROID 0.34-5.60 UIU/ml EUTHYROID >5.60 UIU/ml HYPOTHYROID Performed By: #### B MP, TSH #### [facility] [address] [place] [address] Dr. Tasha Dodson CBC Auto Differentialon 10-0 Basophils (Bld) [#/Vol] 0.1 10*3/uL 0 - 0.2 K/u L [place] Basophils/100 WBC (Bld) 1.1 % M [place] Eosinophils (Bld) [#/Vol] 0.2 10*3/uL 0 - 0.7 K/uL [place] Eosinophils/100 WBC (Bld) 1.4 % [place] Erythrocyte distribution width (RBC) [Ratio] 14.4 % 11.5 - 14.5 % [place] Hematocrit (Bld) [Volume fraction] 33.6 % Low 37 - 47 % [place] Hemoglobin (Bld) [Mass/Vol] 11.1 g/dL Low 12 - 16 g/dL [place] Interpretation and review of laboratory results Abnormal [place] Lymphocytes (Bld) [#/Vol] 2.3 10*3/uL 1 - 4.8 K/uL [place] Lymphocytes/100 WBC (Bld) 18.0 % [place] MCH (RBC) [Entitic mass] 29.5 pg 27 - 31.3 p g [place] MCHC (RBC) [Mass/Vol] 33.0 % 33 - 37 % [place] MCV (RBC) [Entitic vol] 89.5 fL 82 - 100 fL [place] Monocytes (Bld) [#/Vol] 0.9 10*3/uL High 0.2 - 0.8 K/uL [place] Monocytes/100 WBC (Bld) 6.9 % [place] Neutrophils Absolute 9.1 K/uL High 1.4 - 6 .5 K/uL [place] Neutrophils/100 WBC (Bld) 72.6 % [place] Platelets (Bld) [#/Vol] 548 10*3/uL High 130 - 400 K/uL [place] RBC (Bld) [#/Vol] 3.75 10*6/uL Low [place] WBC (Bld) [#/Vol] 12.5 10*3/uL High 4.8 - 10.8 K/uL [place] CBC With Platelet and Differ entialon 11-20-2018 Basophils (Bld) [#/Vol] 0.1 10*3/uL Normal 0.0-0.2 [facility] Comment on above: Performed By: #### E SR #### [facility] [address] [place] [address] Basophils/100 WBC (Bld) 1.1 % Normal [facility] Comment on above: Performed By: #### E SR #### [facility] [address] [place] [address] Eosinophils (Bld) [#/Vol] 0.2 10*3/uL Normal 0.0-0.7 [facility] Comment on above: Performed By: #### E SR #### [facility] [address] [place] [address] Eosinophils/100 WBC (Bld) 1.4 % Normal [facility] Comment on above: Performed By: #### E SR #### [facility] [address] [place] [address] Erythrocyte distribution width (RBC) [Ratio] 14.4 % Normal 11.5-14.5 [facility] Comment on above: Performed By: #### E SR #### [facility] [address] [place] [address] Hematocrit (Bld) [Volume fraction] 33.6 % Low 37.0-47.0 [facility] Comment on above: Performed By: #### E SR #### [facility] [address] [place] [address] Hemoglobin (Bld) [Mass/Vol] 11.1 g/dL Low 12.0-16.0 [facility] Comment on above: Performed By: #### E SR #### [facility] [address] [place] [address] Lymphocytes (Bld) [#/Vol] 2.3 10*3/uL Normal 1.0-4.8 [facility] Comment on above: Performed By: #### E SR #### [facility] [address] [place] [address] Lymphocytes/100 WBC (Bld) 18.0 % Normal [facility] Comment on above: Performed By: #### E SR #### [facility] [address] [place] [address] MCH (RBC) [Entitic mass] 29.5 pg Normal 27.0-31.3 [facility] Comment on above: Performed By: #### E SR #### [facility] [address] [place] [address] MCHC (RBC) [Mass/Vol] 33.0 % Normal 33.0-37.0 [facility] Comment on above: Performed By: #### E SR #### [facility] [address] [place] [address] MCV (RBC) [Entitic vol] 89.5 fL Normal 82.0-100.0 [facility] Comment on above: Performed By: #### E SR #### [facility] [address] [place] [address] Monocytes (Bld) [#/Vol] 0.9 10*3/uL Critically high 0.2-0. 8 [facility] Comment on above: Performed By: #### E SR #### [facility] [address] [place] [address] Monocytes/100 WBC (Bld) 6.9 % Normal [facility] Comment on above: Performed By: #### E SR #### [facility] [address] [place] [address] Neutrophils (Bld) [#/Vol] 9.1 10*3/uL Critically high 1.4-6.5 [facility] Comment on above: Performed By: #### E SR #### [facility] [address] [place] [address] Neutrophils/100 WBC (Bld) 72.6 % Normal [facility] Comment on above: Performed By: #### E SR #### [facility] [address] [place] [address] Platelets (Bld) [#/Vol] 548 10*3/uL Critically high 130-40 0 [facility] Comment on above: Performed By: #### E SR #### [facility] [address] [place] [address] RBC (Bld) [#/Vol] 3.75 10*6/uL Low 4.20-5.40 [facility] Comment on above: Performed By: #### E SR #### [facility] [address] [place] [address] WBC (Bld) [#/Vol] 12.5 10*3/uL Critically high 4.8-10.8 [facility] Comment on above: Performed By: #### E SR #### [facility] [address] [place] [address] EKG 12 Leadon 11-20-2018 Atrial Rate 79 BPM [facility] [place] [place] P [place] 58 degrees [facility] [place] P-R Interval 176 ms [facility] [place] Q-T Interval 404 ms [facility] [place] QRS Duration 130 ms [facility] [place] QTc Calculation (Bazett) 463 ms [facility] [place] R [place] -11 degrees [facility] [place] T [place] 5 degrees [facility] [place] Urea nitrogen [Mass/Vol] Normal sinus rh ythm Right bundle branch block Moderate voltage criteria for LVH, may be normal variant Abnormal ECG When compared with ECG of 13-NOV-2018 08:33, No significant change was found Confirmed by Анна Zamarripa ([id number]) on 11/20/2018 9:39:56 AM [facility] [place] Ventricular Rate 79 BPM [facility] [place] Joseph, Chpo Incoming Results From [place] - 11/20/2018 9:40 AM EDT Normal sinus rhythm Right bundle branch block Moderate voltage criteria for LVH, may be normal variant Abnormal ECG When compared with ECG of 13-NOV-2018 08:33, No significant change was found Confirmed by Анна Zamarripa ([id number]) on 11/20/2018 9:39:56 AM [facility] [place] CBC Auto Differentialon 09-3 Neutrophils Absolute 6.1 K/uL 1.4 - 6 .5 K/uL [place] CBC With Platelet and Differ entialon 11-19-2018 Basophils (Bld) [#/Vol] 0.2 10*3/uL Normal 0.0-0.2 [place] Comment on above: Performed By: #### C MP #### [facility] [address] [place] [address] Basophils/100 WBC (Bld) 1.5 % Normal [place] Comment on above: Performed By: #### C MP #### [facility] [address] [place] [address] Eosinophils (Bld) [#/Vol] 0.3 10*3/uL Normal 0.0-0.7 [place] Comment on above: Performed By: #### C MP #### [facility] [address] [place] [address] Eosinophils/100 WBC (Bld) 2.5 % Normal [place] Comment on above: Performed By: #### C MP #### [facility] [address] [place] [address] Erythrocyte distribution width (RBC) [Ratio] 14.1 % Normal 11.5-14.5 [place] Comment on above: Performed By: #### C MP #### [facility] [address] [place] [address] Hematocrit (Bld) [Volume fraction] 29.3 % Low 37.0-47.0 [place] Comment on above: Performed By: #### C MP #### [facility] [address] [place] [address] Hemoglobin (Bld) [Mass/Vol] 10.1 g/dL Low 12.0-16.0 [place] Comment on above: Performed By: #### C MP #### [facility] [address] [place] [address] Lymphocytes (Bld) [#/Vol] 2.8 10*3/uL Normal 1.0-4.8 [place] Comment on above: Performed By: #### C MP #### [facility] [address] [address] Lymphocytes/100 WBC (Bld) 27.3 % Normal [place] Comment on above: Performed By: #### C MP #### [facility] [address] [facility] [address] MCH (RBC) [Entitic mass] 30.7 pg Normal 27.0-31.3 [place] Comment on above: Performed By: #### C MP #### [facility] [address] [facility] [address] MCHC (RBC) [Mass/Vol] 34.6 % Normal 33.0-37.0 [place] Comment on above: Performed By: #### C MP #### [facility] [address] [facility] [address] MCV (RBC) [Entitic vol] 88.9 fL Normal 82.0-100.0 [place] Comment on above: Performed By: #### C MP #### [facility] [address] [address] Monocytes (Bld) [#/Vol] 0.9 10*3/uL Critically high 0.2-0. 8 [place] Comment on above: Performed By: #### C MP #### [facility] [address] [place] [address] Monocytes/100 WBC (Bld) 9.2 % Normal [place] Comment on above: Performed By: #### C MP #### [facility] [address] [place] [address] Neutrophils (Bld) [#/Vol] 6.1 10*3/uL Normal 1.4-6.5 [facility] Comment on above: Performed By: #### C MP #### [facility] [address] [place] [address] Neutrophils/100 WBC (Bld) 59.5 % Normal [place] Comment on above: Performed By: #### C MP #### [facility] [address] [place] [address] Platelets (Bld) [#/Vol] 396 10*3/uL Normal 130-400 [place] Comment on above: Performed By: #### C MP #### [facility] [address] [facility] [address] RBC (Bld) [#/Vol] 3.30 10*6/uL Low 4.20-5.40 [place] Comment on above: Performed By: #### C MP #### [facility] [address] [facility] [address] WBC (Bld) [#/Vol] 10.2 10*3/uL Normal 4.8-10.8 [place] Comment on above: Performed By: #### C MP #### [facility] [address] [place] [address] High Sensitivity CRPon 11-19 High Sensitivity CRP 89.2 mg/L Critically high 0.0-5.0 [facility] Comment on above: Performed By: #### E SR #### [facility] [address] [address] High sensitivity CRPon 11-19 CRP High Sensitivity 89.2 mg/L High 0 - 5 mg/L [place], [place] Interpretation and review of laboratory results Abnormal [place] Otheron 11-19-2018 Interpretation and review of laboratory results Abnormal [place] Sedimentation Rateon 019 Sedimentation Rate 55 mm Critically high 0-30 [facility] Comment on above: Performed By: #### C MP #### [facility] [address] [address] Sed Rate 55 mm High 0 - 30 mm [place] Basic Metabolic Panelon 10-22 Anion gap [Moles/Vol] 14 mmol/L Normal 9-15 [facility] Comment on above: Performed By: #### C MP #### [facility] [address] [place] [address] Calcium [Mass/Vol] 8.8 mg/dL Normal 8.5-9.9 [facility] Comment on above: Performed By: #### C MP #### [facility] [address] [place] [address] Chloride [Moles/Vol] 95 mmol/L Normal 95-107 [facility] [place] Comment on above: Performed By: #### C MP #### [facility] [address] [place] [address] CO2 [Moles/Vol] 26 mmol/L Normal 20-31 [facility] Comment on above: Performed By: #### C MP #### [facility] [address] [place] [address] Creatinine [Mass/Vol] 0.58 mg/dL Normal 0.50-0.90 [facility] Comment on above: Performed By: #### C MP #### [facility] [address] [place] [address] GFR/1.73 sq M predicted among blacks MDRD (S/P/Bld) [Vol rate/Area] mL/min/{1.73_m2} Normal >60 [facility] Comment on above: Result Comment: >60 mL/min/1.73m2 EGFR, calc. for ages 18 and older using the MDRD formula (not corrected for weight), is valid for stable renal function. Performed By: #### C MP #### [facility] [address] [place] [address] GFR/1.73 sq M.predicted MDRD (S/P/Bld) [Vol rate/Area] mL/min/{1.73_m2} Normal >60 [facility] Comment on above: Result Comment: >60 mL/min/1.73m2 EGFR, calc. for ages 18 and older using the MDRD formula (not corrected for weight), is valid for stable renal function. Performed By: #### C MP #### [facility] [address] [place] [address] Glucose [Mass/Vol] 156 mg/dL Critically high 70-99 [facility] Comment on above: Performed By: #### C MP #### [facility] [address] [place] [address] Potassium [Moles/Vol] 3.3 mmol/L Low 3.4-4.9 [facility] Comment on above: Performed By: #### C MP #### [facility] [address] [place] [address] Sodium [Moles/Vol] 135 mmol/L Normal 135-144 [facility] Comment on above: Performed By: #### C MP #### [facility] [address] [place] [address] Urea nitrogen [Mass/Vol] 11 mg/dL Normal 8-23 [facility] Comment on above: Performed By: #### C MP #### [facility] [address] [place] [address] Anion gap [Moles/Vol] 14 mmol/L [place], [place] Calcium [Mass/Vol] 8.8 mg/dL 8.5 - 9.9 mg/dL [place] Chloride [Moles/Vol] 95 mmol/L [place] CO2 [Moles/Vol] 26 mmol/L [place] Creatinine [Mass/Vol] 0.58 mg/dL 0.5 - 0.9 mg/dL [place] GFR >60.0 >60 [place] Comment on above: >60 mL/min/1.73m2 EG FR, calc. for ages 18 and older using the MDRD formula (not corrected for weight), is valid for stable renal function. GFR Non- >60.0 >60 [place] Comment on above: >60 mL/min/1.73m2 EG FR, calc. for ages 18 and older using the MDRD formula (not corrected for weight), is valid for stable renal function. Glucose [Mass/Vol] 156 mg/dL High 70 - 99 mg/dL [place] Interpretation and review of laboratory results Abnormal [place] Potassium [Moles/Vol] 3.3 mmol/L Low [place] Sodium [Moles/Vol] 135 mmol/L [place] Urea nitrogen [Mass/Vol] 11 mg/dL 8 - 23 mg/d L [place] Magnesiumon 11-18-2018 Magnesium [Mass/Vol] 1.8 mg/dL Normal 1.7-2.4 [facility] [place] Comment on above: Performed By: #### C MP #### [facility] [address] [facility] [address] Magnesium [Mass/Vol] 1.8 mg/dL 1.7 - 2 .4 mg/dL [place] TSH w/out Reflexon 9 TSH Qn 0.880 uIU/mL Normal 0.440-3.86 [facility] Comment on above: Performed By: #### C MP #### [facility] [address] [facility] [address] TSH without Reflexon 019 TSH Qn 0.880 m[IU]/L [place] CBC Auto Differentialon 10-22 Basophils (Bld) [#/Vol] 0.1 10*3/uL 0 - 0.2 K/u L [place] Basophils/100 WBC (Bld) 0.7 % M [place] Eosinophils (Bld) [#/Vol] 0.4 10*3/uL 0 - 0.7 K/uL [place] Eosinophils/100 WBC (Bld) 2.8 % [place] Erythrocyte distribution width (RBC) [Ratio] 14.2 % 11.5 - 14.5 % [place] Hematocrit (Bld) [Volume fraction] 32.3 % Low 37 - 47 % [place] Hemoglobin (Bld) [Mass/Vol] 10.8 g/dL Low 12 - 16 g/dL [place] Interpretation and review of laboratory results Abnormal [place] Lymphocytes (Bld) [#/Vol] 2.6 10*3/uL 1 - 4.8 K/uL [place] Lymphocytes/100 WBC (Bld) 16.8 % [place] MCH (RBC) [Entitic mass] 30.3 pg 27 - 31.3 p g [place] MCHC (RBC) [Mass/Vol] 33.4 % 33 - 37 % [place] MCV (RBC) [Entitic vol] 90.5 fL 82 - 100 fL [place] Monocytes (Bld) [#/Vol] 1.3 10*3/uL High 0.2 - 0.8 K/uL [place] Monocytes/100 WBC (Bld) 8.3 % [place] Neutrophils Absolute 11.1 K/uL High 1.4 - 6 .5 K/uL [place] Neutrophils/100 WBC (Bld) 71.4 % [place] Platelets (Bld) [#/Vol] 375 10*3/uL 130 - 400 K/uL [place] RBC (Bld) [#/Vol] 3.57 10*6/uL Low [place] WBC (Bld) [#/Vol] 15.5 10*3/uL High 4.8 - 10.8 K/uL [place] CBC With Platelet and Differ entialon 11-17-2018 Basophils (Bld) [#/Vol] 0.1 10*3/uL Normal 0.0-0.2 [facility] Comment on above: Performed By: #### C MP #### [facility] [address] [facility] [address] Basophils/100 WBC (Bld) 0.7 % Normal [facility] Comment on above: Performed By: #### C MP #### [facility] [address] [place] [address] Eosinophils (Bld) [#/Vol] 0.4 10*3/uL Normal 0.0-0.7 [facility] Comment on above: Performed By: #### C MP #### [facility] [address] [place] [address] Eosinophils/100 WBC (Bld) 2.8 % Normal [facility] Comment on above: Performed By: #### C MP #### [facility] [address] [place] [address] Erythrocyte distribution width (RBC) [Ratio] 14.2 % Normal 11.5-14.5 [facility] Comment on above: Performed By: #### C MP #### [facility] [address] [place] [address] Hematocrit (Bld) [Volume fraction] 32.3 % Low 37.0-47.0 [facility] Comment on above: Performed By: #### C MP #### [facility] [address] [place] [place] [address] Hemoglobin (Bld) [Mass/Vol] 10.8 g/dL Low 12.0-16.0 [facility] Comment on above: Performed By: #### C MP #### [facility] [address] [place] [address] Lymphocytes (Bld) [#/Vol] 2.6 10*3/uL Normal 1.0-4.8 [facility] Comment on above: Performed By: #### C MP #### [facility] [address] [place] [place] [address] Lymphocytes/100 WBC (Bld) 16.8 % Normal [facility] Comment on above: Performed By: #### C MP #### [facility] [address] [place] [place] [address] MCH (RBC) [Entitic mass] 30.3 pg Normal 27.0-31.3 [facility] Comment on above: Performed By: #### C MP #### [facility] [address] [place] [address] MCHC (RBC) [Mass/Vol] 33.4 % Normal 33.0-37.0 [facility] Comment on above: Performed By: #### C MP #### [facility] [address] [place] [address] MCV (RBC) [Entitic vol] 90.5 fL Normal 82.0-100.0 [facility] Comment on above: Performed By: #### C MP #### [facility] [address] [place] [address] Monocytes (Bld) [#/Vol] 1.3 10*3/uL Critically high 0.2-0. 8 [facility] Comment on above: Performed By: #### C MP #### [facility] [address] [place] [address] Monocytes/100 WBC (Bld) 8.3 % Normal [facility] Comment on above: Performed By: #### C MP #### [facility] [address] [place] [address] Neutrophils (Bld) [#/Vol] 11.1 10*3/uL Critically high 1.4-6.5 [facility] Comment on above: Performed By: #### C MP #### [facility] [address] [place] [address] Neutrophils/100 WBC (Bld) 71.4 % Normal [facility] Comment on above: Performed By: #### C MP #### [facility] [address] [place] [address] Platelets (Bld) [#/Vol] 375 10*3/uL Normal 130-400 [facility] Comment on above: Performed By: #### C MP #### [facility] [address] [place] [address] RBC (Bld) [#/Vol] 3.57 10*6/uL Low 4.20-5.40 [facility] Comment on above: Performed By: #### C MP #### [facility] [address] [facility] [address] WBC (Bld) [#/Vol] 15.5 10*3/uL Critically high 4.8-10.8 [facility] Comment on above: Performed By: #### C MP #### [facility] [address] [facility] [address] High Sensitivity CRPon 11-17 High Sensitivity CRP 230.1 mg/L Critically high 0.0-5.0 [facility] Comment on above: Performed By: #### C MP #### [facility] [address] [facility] [address] High sensitivity CRPon 11-17 CRP High Sensitivity 230.1 mg/L High 0 - 5 mg/L [place] Interpretation and review of laboratory results Abnormal [place] Sedimentation Rateon 019 Sedimentation Rate 50 mm Critically high 0-30 [facility] Comment on above: Performed By: #### C MP #### [facility] [address] [facility] [address] Interpretation and review of laboratory results Abnormal [facility] Sed Rate 50 mm High 0 - 30 mm [facility] US DUP LOWER EXTREMITIES VAUGHN ATERAL VENOUSon 11-17-2018 NO DVT IDENTIFIED IN EITHER LOWER EXTREMITY. [facility] [place], [place] Incoming Radiant Results From pic5/Pacs - 11/17/2018 8:05 AM EDT US DUP [...] NO DVT IDENTIFIED IN EITHER LOWER EXTREMITY. [facility] IN [place] DUP LOWER EXTREMITIES BILATERAL VENOUS : 11/16/2018 CLINICAL HISTORY: LEG SWELLING, PAIN, DVT SUSPECTED . COMPARISON: None available. Grayscale, compression, color and waveform Doppler analysis of both lower extremity deep venous systems was performed with augmentation. FINDINGS: There is no deep venous thrombosis, abnormal masses, fluid collections or other findings of concern identified within either lower extremity. [place] Urine Cultureon 11-17-2018 Bacteria identified Cx Nom (U) No growth 24 hours [place], [place] ORDERED BY: MAMI COKER SOURCE: Urine Clean Catch COLLECTED: 11/15/18 19:05 ANTIBIOTICS AT DI.: RECEIVED : 11/15/18 19:05 [place] CBC With Platelet and Differ entialon 11-16-2018 Neutrophils (Bld) [#/Vol] 15.5 10*3/uL Critically high 1.4-6.5 [facility] Comment on above: Performed By: #### P TT #### [facility] [address] [place] [address] Basophils (Bld) [#/Vol] 0.2 10*3/uL Normal 0.0-0.2 [place] Comment on above: Performed By: #### P TT #### [facility] [address] [place] [address] Basophils/100 WBC (Bld) 0.9 % Normal [place] Comment on above: Performed By: #### P TT #### [facility] [address] [place] [address] Eosinophils (Bld) [#/Vol] 0.1 10*3/uL Normal 0.0-0.7 [place] Comment on above: Performed By: #### P TT #### [facility] [address] [place] [address] Eosinophils/100 WBC (Bld) 0.8 % Normal [place] Comment on above: Performed By: #### P TT #### [facility] [address] [place] [address] Erythrocyte distribution width (RBC) [Ratio] 14.4 % Normal 11.5-14.5 [place] Comment on above: Performed By: #### P TT #### [facility] [address] [place] [address] Hematocrit (Bld) [Volume fraction] 33.4 % Low 37.0-47.0 [place] Comment on above: Performed By: #### P TT #### [facility] [address] [place] [address] Hemoglobin (Bld) [Mass/Vol] 11.0 g/dL Low 12.0-16.0 [place] Comment on above: Performed By: #### P TT #### [facility] [address] [facility] [address] Lymphocytes (Bld) [#/Vol] 1.5 10*3/uL Normal 1.0-4.8 [place] Comment on above: Performed By: #### P TT #### [facility] [address] [facility] [address] Lymphocytes/100 WBC (Bld) 7.9 % Normal [place] Comment on above: Performed By: #### P TT #### [facility] [address] [facility] [address] MCH (RBC) [Entitic mass] 29.4 pg Normal 27.0-31.3 [place] Comment on above: Performed By: #### P TT #### [facility] [address] [facility] [address] MCHC (RBC) [Mass/Vol] 32.9 % Low 33.0-37.0 [place] Comment on above: Performed By: #### P TT #### [facility] [address] [facility] [address] MCV (RBC) [Entitic vol] 89.4 fL Normal 82.0-100.0 [place] Comment on above: Performed By: #### P TT #### [facility] [address] [facility] [address] Monocytes (Bld) [#/Vol] 1.3 10*3/uL Critically high 0.2-0. 8 [place] Comment on above: Performed By: #### P TT #### [facility] [address] [place] [address] Monocytes/100 WBC (Bld) 7.1 % Normal [place] Comment on above: Performed By: #### P TT #### [facility] [address] [place] [address] Neutrophils/100 WBC (Bld) 83.3 % Normal [place] Comment on above: Performed By: #### P TT #### [facility] [address] [facility] [address] Platelets (Bld) [#/Vol] 304 10*3/uL Normal 130-400 [place] Comment on above: Performed By: #### P TT #### [facility] [address] [facility] [address] RBC (Bld) [#/Vol] 3.74 10*6/uL Low 4.20-5.40 [place] Comment on above: Performed By: #### P TT #### [facility] [address] [place] [address] WBC (Bld) [#/Vol] 18.6 10*3/uL Critically high 4.8-10.8 [place] Comment on above: Performed By: #### P TT #### [facility] [address] [facility] [address] CBC auto differentialon 10-22 Interpretation and review of laboratory results Abnormal [place] Neutrophils Absolute 15.5 K/uL High 1.4 - 6 .5 K/uL [place] ECHO Complete 2D W Doppler W Coloron 11-16-2018 Transthoracic Echocardiography Report (TTE) Demographics Patient Name MERCY GANDHI Gender Female Patient Number [id number] Race Unknown Ethnicity Visit Number [id number] Room Number R238 Corporate ID Date of Study 11/16/2018 Referring Physician Holiday DO Natalia Walters Date of 1935 [employer] 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 Age 83 year(s) Interpreting [facility] Physician Cardiology Cain Quinonez MD [...] Gradient: 4.03 mmHg Estimated PASP: 40.86 mmHg [place] ED Velocity: 1.27 m/s LVOT Peak Velocity: [...] Root: 2.35 cm LVOT Diameter: 1.65 cm [facility]- [place], [place], [place] Incoming Cardiovascular Results From [facility] - 11/16/2018 5:05 PM EDT Transthoracic Echocardiography Report (TTE) Demographics Patient Name MERCY GANDHI Gender Female Patient Number [id number] Race Unknown Ethnicity Visit Number [id number] Room Number R238 Corporate ID Date of Study 11/16/2018 Referring Physician Niki Vazquez DO Number Date of 1935 Gang Sawyer Althea Bella [facility] Age 83 year(s) Interpreting [facility] Physician Cardiology Cain Quinonez MD [...] Gradient: 4.03 mmHg Estimated PASP: 40.86 mmHg [place] ED Velocity: 1.27 m/s LVOT Peak Velocity: [...] Root: 2.35 cm LVOT Diameter: 1.65 cm [place] Microscopic Urinalysison Bacteria, UA Negative /HPF [place] Epi Cells 3-5 /HPF [place] Interpretation and review of laboratory results Abnormal [place] RBC (U) [#/Vol] 3-5 Abnormal [place] Renal Epithelial, Urine 0-2 Abnormal /HPF [place] WBC, UA None seen [place] CAROTID ARTERY BILATERALo n 11-16-2018 [...] Damped resistive CCA decreased decreased resistive CCA [employer]- [place], [place], [place] Incoming Radiant Results From pic5/[employer] - 11/16/2018 10:40 AM EDT Patient : [...] Damped resistive CCA decreased decreased resistive CCA [place] Patient : 1935 Age: 83 years [...] and noncalcified plaque bilateral carotid arterial systems [facility] [place] DUP LOWER EXTREMITIES VAUGHN ATERAL VENOUSon [...] De Souza MD 11/17/18 Final result Normal [facility] Urine Microscopicon 11-17-19 19 Bacteria LM.HPF (Urine sed) [#/Area] Negative Normal [facility] Comment on above: Performed By: #### P TT #### [facility] [address] [facility] [address] Epithelial cells LM Ql (Urine sed) 3-5 Normal [facility] Comment on above: Performed By: #### P TT #### [facility] [address] [facility] [address] RBC (U) [#/Vol] 3-5 Abnormal 0-2 [facility] Comment on above: Performed By: #### P TT #### [facility] [address] [facility] [address] Urine Renal Epithelial 0-2 Abnormal [facility] Comment on above: Performed By: #### P TT #### [facility] [address] [facility] [address] WBC (U) [#/Vol] None seen Normal 0-5 [facility] Comment on above: Performed By: #### P TT #### [facility] [address] [place] [address] XR CHEST PORTABLEon 11-17-19 19 [place], Chpo Incoming Radiant Results From [employer]/Pacs - 11/16/2018 10:21 AM EDT EXAMINATION: XR CHEST PORTABLE CLINICAL HISTORY: fever . History of back surgery. COMPARISONS: None available. FINDINGS: Single AP portable view the chest obtained on November 15, 2018 at 2124 hours. The heart is not enlarged. Mediastinum is not widened. Calcified aorta is not dilated. Lungs are clear. The chest wall is unremarkable. CONCLUSION: NO ACUTE PROCESS [place] EXAMINATION: XR CHEST PORTABLE CLINICAL HISTORY: fever . History of back surgery. COMPARISONS: None available. FINDINGS: Single AP portable view the chest obtained on November 15, 2018 at 2124 hours. The heart is not enlarged. Mediastinum is not widened. Calcified aorta is not dilated. Lungs are clear. The chest wall is unremarkable. CONCLUSION: NO ACUTE PROCESS [place] CBC Auto Differentialon 10-22 Anisocytosis Ql (Bld) 1+ [place] Bands Relative 4 % Low 5 - 11 % [place] Basophils (Bld) [#/Vol] 0.0 10*3/uL 0 - 0.2 K/u L [place] Basophils/100 WBC (Bld) 0.6 % [place] Eosinophils (Bld) [#/Vol] 0.0 10*3/uL 0 - 0.7 K/uL [place] Eosinophils/100 WBC (Bld) 0.9 % [place] Erythrocyte distribution width (RBC) [Ratio] 14.6 % High 11.5 - 14.5 % [place] Hematocrit (Bld) [Volume fraction] 33.3 % Low 37 - 47 % [place] Hemoglobin (Bld) [Mass/Vol] 10.9 g/dL Low 12 - 16 g/dL [place] Interpretation and review of laboratory results Abnormal [place] Lymphocytes (Bld) [#/Vol] 3.5 10*3/uL 1 - 4.8 K/uL [place] Lymphocytes/100 WBC (Bld) 17.0 % [place] MCH (RBC) [Entitic mass] 29.8 pg 27 - 31.3 p g [place] MCHC (RBC) [Mass/Vol] 32.9 % Low 33 - 37 % [place] MCV (RBC) [Entitic vol] 90.7 fL 82 - 100 fL [place] Microcytes 1+ [place] Monocytes (Bld) [#/Vol] 0.0 10*3/uL Low 0.2 - 0.8 K/uL [place] Monocytes/100 WBC (Bld) 7.7 % [place] Neutrophils Absolute 17.3 K/uL High 1.4 - 6 .5 K/uL [place] Neutrophils/100 WBC (Bld) 79.0 % [place] PLATELET SLIDE REVIEW Normal [place], [place] Platelets (Bld) [#/Vol] 315 10*3/uL 130 - 400 K/uL [place] RBC (Bld) [#/Vol] 3.67 10*6/uL Low [place] WBC (Bld) [#/Vol] 20.8 10*3/uL High 4.8 - 10.8 K/uL [place] CBC With Platelet No Differe ntialon 11-15-2018 Erythrocyte distribution width (RBC) [Ratio] 14.5 % Normal 11.5-14.5 [facility] Comment on above: Performed By: #### P TT #### [facility] [address] [facility] [address] Hematocrit (Bld) [Volume fraction] 36.9 % Low 37.0-47.0 [facility] Comment on above: Performed By: #### P TT #### [facility] [address] [facility] [address] Hemoglobin (Bld) [Mass/Vol] 11.9 g/dL Low 12.0-16.0 [facility] Comment on above: Performed By: #### P TT #### [facility] [address] [place] [address] MCH (RBC) [Entitic mass] 29.4 pg Normal 27.0-31.3 [facility] Comment on above: Performed By: #### P TT #### [facility] [address] [place] [address] MCHC (RBC) [Mass/Vol] 32.3 % Low 33.0-37.0 [facility] Comment on above: Performed By: #### P TT #### [facility] [address] [place] [address] MCV (RBC) [Entitic vol] 91.1 fL Normal 82.0-100.0 [facility] Comment on above: Performed By: #### P TT #### [facility] [address] [place] [address] Platelets (Bld) [#/Vol] 341 10*3/uL Normal 130-400 [facility] Comment on above: Performed By: #### P TT #### [facility] [address] [place] [address] RBC (Bld) [#/Vol] 4.05 10*6/uL Low 4.20-5.40 [facility] Comment on above: Performed By: #### P TT #### [facility] [address] [place] [address] WBC (Bld) [#/Vol] 19.8 10*3/uL Critically high 4.8-10.8 [facility] Comment on above: Performed By: #### P TT #### [facility] [address] [place] [address] CBC With Platelet and Differ entialon 11-15-2018 Anisocytosis Ql (Bld) 1+ Normal [facility] Comment on above: Performed By: #### P TT #### [facility] [address] [place] [address] Bands 4 % Low 5-11 [facility] Comment on above: Performed By: #### P TT #### [facility] [address] [place] [address] Basophils (Bld) [#/Vol] 0.0 10*3/uL Normal 0.0-0.2 [facility] Comment on above: Performed By: #### P TT #### [facility] [address] [place] [address] Basophils/100 WBC (Bld) 0.6 % Normal [facility] Comment on above: Performed By: #### P TT #### [facility] [address] [place] [address] Eosinophils (Bld) [#/Vol] 0.0 10*3/uL Normal 0.0-0.7 [facility] Comment on above: Performed By: #### P TT #### [facility] [address] [place] [address] Eosinophils/100 WBC (Bld) 0.9 % Normal [facility] Comment on above: Performed By: #### P TT #### [facility] [address] [place] [address] Lymphocytes (Bld) [#/Vol] 3.5 10*3/uL Normal 1.0-4.8 [facility] Comment on above: Performed By: #### P TT #### [facility] [address] [place] [address] Lymphocytes/100 WBC (Bld) 17.0 % Normal [facility] Comment on above: Performed By: #### P TT #### [facility] [address] [place] [address] Microcytic 1+ Normal [facility] Comment on above: Performed By: #### P TT #### [facility] [address] [place] [address] Monocytes (Bld) [#/Vol] 0.0 10*3/uL Low 0.2-0.8 [facility] Comment on above: Performed By: #### P TT #### [facility] [address] [place] [address] Monocytes/100 WBC (Bld) 7.7 % Normal [facility] Comment on above: Performed By: #### P TT #### [facility] [address] [place] [address] Neutrophils (Bld) [#/Vol] 17.3 10*3/uL Critically high 1.4-6.5 [facility] Comment on above: Performed By: #### P TT #### [facility] [address] [place] [address] Neutrophils/100 WBC (Bld) 79.0 % Normal [facility] Comment on above: Performed By: #### P TT #### [facility] [address] [place] [address] Platelet Slide Review Normal Normal [facility] Comment on above: Performed By: #### P TT #### [facility] [address] [place] [address] Erythrocyte distribution width (RBC) [Ratio] 14.6 % Critically high 11.5-14.5 [facility] Comment on above: Performed By: #### P TT #### [facility] [address] [place] [address] Hematocrit (Bld) [Volume fraction] 33.3 % Low 37.0-47.0 [facility] Comment on above: Performed By: #### P TT #### [facility] [address] [place] [address] Hemoglobin (Bld) [Mass/Vol] 10.9 g/dL Low 12.0-16.0 [facility] Comment on above: Performed By: #### P TT #### [facility] [address] [place] [address] MCH (RBC) [Entitic mass] 29.8 pg Normal 27.0-31.3 [facility] Comment on above: Performed By: #### P TT #### [facility] [address] [place] [address] MCHC (RBC) [Mass/Vol] 32.9 % Low 33.0-37.0 [facility] Comment on above: Performed By: #### P TT #### [facility] [address] [place] [address] MCV (RBC) [Entitic vol] 90.7 fL Normal 82.0-100.0 [facility] Comment on above: Performed By: #### P TT #### [facility] [address] [place] [address] Platelets (Bld) [#/Vol] 315 10*3/uL Normal 130-400 [facility] Comment on above: Performed By: #### P TT #### [facility] [address] [place] [address] RBC (Bld) [#/Vol] 3.67 10*6/uL Low 4.20-5.40 [facility] Comment on above: Performed By: #### P TT #### [facility] [address] [place] [address] WBC (Bld) [#/Vol] 20.8 10*3/uL Critically high 4.8-10.8 [facility] Comment on above: Performed By: #### P TT #### [facility] [address] [place] [address] Comprehensive Metabolic Pane l reflex Mgon 11-15-2018 Albumin [Mass/Vol] 3.3 g/dL Low 3.5-4.6 [facility] Comment on above: Performed By: #### P TT #### [facility] [address] [address] ALP [Catalytic activity/Vol] 71 U/L Normal 40-130 [facility] Comment on above: Performed By: #### P TT #### [facility] [address] [place] [address] ALT [Catalytic activity/Vol] 12 U/L Normal 0-33 [facility] Comment on above: Performed By: #### P TT #### [facility] [address] [place] [address] Anion gap [Moles/Vol] 11 mmol/L Normal 9-15 [facility] Comment on above: Performed By: #### P TT #### [facility] [address] [place] [address] AST [Catalytic activity/Vol] 28 U/L Normal 0-35 [facility] Comment on above: Performed By: #### P TT #### [facility] [address] [place] [address] Bilirubin [Mass/Vol] 0.4 mg/dL Normal 0.2-0.7 [facility] [place] Comment on above: Performed By: #### P TT #### [facility] [address] [place] [address] Calcium [Mass/Vol] 9.1 mg/dL Normal 8.5-9.9 [facility] Comment on above: Performed By: #### P TT #### [facility] [address] [place] [address] Chloride [Moles/Vol] 98 mmol/L Normal 95-107 [facility] [place] Comment on above: Performed By: #### P TT #### [facility] [address] [place] [address] CO2 [Moles/Vol] 27 mmol/L Normal 20-31 [facility] Comment on above: Performed By: #### P TT #### [facility] [address] [place] [address] Creatinine [Mass/Vol] 0.59 mg/dL Normal 0.50-0.90 [facility] Comment on above: Performed By: #### P TT #### [facility] [address] [place] [address] GFR/1.73 sq M predicted among blacks MDRD (S/P/Bld) [Vol rate/Area] mL/min/{1.73_m2} Normal >60 [facility] Comment on above: Result Comment: >60 mL/min/1.73m2 EGFR, calc. for ages 18 and older using the MDRD formula (not corrected for weight), is valid for stable renal function. Performed By: #### P TT #### [facility] [address] [place] [address] GFR/1.73 sq M.predicted MDRD (S/P/Bld) [Vol rate/Area] mL/min/{1.73_m2} Normal >60 [facility] Comment on above: Result Comment: >60 mL/min/1.73m2 EGFR, calc. for ages 18 and older using the MDRD formula (not corrected for weight), is valid for stable renal function. Performed By: #### P TT #### [facility] [address] [place] [address] Globulin (S) [Mass/Vol] 3.2 g/dL Normal 2.3-3.5 [facility] Comment on above: Performed By: #### P TT #### [facility] [address] [place] [address] Glucose [Mass/Vol] 123 mg/dL Critically high 70-99 [facility] Comment on above: Performed By: #### P TT #### [facility] [address] [place] [address] Potassium reflex Mg 3.8 mEq/L Normal 3.4-4.9 [facility] Comment on above: Performed By: #### P TT #### [facility] [address] [place] [address] Protein [Mass/Vol] 6.5 g/dL Normal 6.3-8.0 [facility] Comment on above: Performed By: #### P TT #### [facility] [address] [place] [address] Sodium [Moles/Vol] 136 mmol/L Normal 135-144 [facility] Comment on above: Performed By: #### P TT #### [facility] [address] [place] [address] Urea nitrogen [Mass/Vol] 6 mg/dL Low 8-23 [facility] Comment on above: Performed By: #### P TT #### [facility] [address] [place] [address] Culture, Blood 2on 9 Culture, Blood 2 ORDERED BY: MAMI COKER SOURCE: Blood COLLECTED: 11/15/18 16:37 ANTIBIOTICS AT DI.: RECEIVED : 11/15/18 16:42 Culture, Blood 2 FINAL 11/20/18 18:15 No growth after 5 days of incubation. Normal [facility] Comment on above: Performed By: #### C MP #### [facility] [address] [place] [address] Culture, Urineon 11-15-2018 Culture, Urine ORDERED BY: MAMI COKER SOURCE: Urine Clean Catch COLLECTED: 11/15/18 19:05 ANTIBIOTICS AT DI.: RECEIVED : 11/15/18 19:05 Culture, Urine FINAL 11/17/18 07:28 No growth 24 hours Normal [facility] Comment on above: Performed By: #### C MP #### [facility] [address] [place] [address] URINE RT REFLEX TO CULTUREon 11-15-2018 Bilirubin Urine Negative Negative [facility] [place] Blood, Urine TRACE Abnormal Negative [facility] [place] Clarity, UA Clear Clear [facility] [place] Color, UA Yellow Straw/Yellow [facility] [place] Glucose, Ur Negative Negative mg/dL [facility] [place] Interpretation and review of laboratory results Abnormal [facility] [place], [place] Ketones Ql (U) Negative Negative mg/dL [facility] [place] Leukocyte esterase Test strip Ql (U) Negative Negative [facility] [place] Nitrite, Urine Negative Negative [facility] [place] pH, UA 7.0 [facility] [place] Protein (U) [Mass/Vol] 30 mg/dL Abnormal Negative [facility], [place] Specific [place], UA 1.[address] [facility] [place], [place] Urine Reflex to Culture YES [facility] [place] Urobilinogen, Urine 0.2 <2.0 E.U./dL [facility], [place] CAROTID ARTERY BILATERALo n 11-15-2018 [place] [...] Mohsen Childers MD 11/16/18 Final result Normal [facility] Urinalysis, reflex to cultur kendall 11-15-2018 Bilirubin Ql (U) Negative Normal Negative [facility] Comment on above: Performed By: #### P TT #### [facility] [address] [place] [address] Clarity (U) Clear Normal Clear [facility] Comment on above: Performed By: #### P TT #### [facility] [address] [place] [address] Color (U) Yellow Normal Straw/[place] [facility] Comment on above: Performed By: #### P TT #### [facility] [address] [place] [address] Glucose Ql (U) Negative Normal Negative [facility] Comment on above: Performed By: #### P TT #### [facility] [address] [place] [address] Hemoglobin Ql (U) TRACE Abnormal Negative [facility] Comment on above: Performed By: #### P TT #### [facility] [address] [place] [address] Ketones Ql (U) Negative Normal Negative [facility] Comment on above: Performed By: #### P TT #### [facility] [address] [place] [address] Leukocyte esterase Test strip Ql (U) Negative Normal Negative [facility] Comment on above: Performed By: #### P TT #### [facility] [address] [place] [address] Nitrite Ql (U) Negative Normal Negative [facility] Comment on above: Performed By: #### P TT #### [facility] [address] [place] [address] pH (U) 7.0 [pH] Normal 5.0-9.0 [facility] Comment on above: Performed By: #### P TT #### [facility] [address] [place] [address] Protein Ql (U) 30 mg/dL Abnormal Negative [facility] Comment on above: Performed By: #### P TT #### [facility] [address] [place] [address] Specific gravity (U) [Rel density] 1.014 Normal 1.005-1.03 [facility] Comment on above: Performed By: #### P TT #### [facility] [address] [place] [address] Urine Reflexed to Culture YES Normal [facility] Comment on above: Performed By: #### P TT #### [facility] [address] [place] [address] Urobilinogen Qn (U) 0.2 {Juan'U}/dL Normal < 2.0 [facility] Comment on above: Performed By: #### P TT #### [facility] [address] [place] [address] XR CHEST PORTABLEon 11-16-19 XR CHEST PORTABLE [...] Pearl Varghese MD 11/16/18 Final result Normal [facility] Basic Metabolic Panel Reflex Mgon 11-14-2018 Anion gap [Moles/Vol] 10 mmol/L Normal 9-15 [facility] Comment on above: Performed By: #### P T #### [facility] [address] [place] [address] Calcium [Mass/Vol] 8.4 mg/dL Low 8.5-9.9 [facility] Comment on above: Performed By: #### P T #### [facility] [address] [place] [address] Chloride [Moles/Vol] 100 mmol/L Normal 95-107 [facility] [place] Comment on above: Performed By: #### P T #### [facility] [address] [place] [address] CO2 [Moles/Vol] 25 mmol/L Normal 20-31 [facility] Comment on above: Performed By: #### P T #### [facility] [address] [place] [address] Creatinine [Mass/Vol] 0.66 mg/dL Normal 0.50-0.90 [facility] Comment on above: Performed By: #### P T #### [facility] [address] [place] [address] GFR/1.73 sq M predicted among blacks MDRD (S/P/Bld) [Vol rate/Area] mL/min/{1.73_m2} Normal >60 [facility] Comment on above: Result Comment: >60 mL/min/1.73m2 EGFR, calc. for ages 18 and older using the MDRD formula (not corrected for weight), is valid for stable renal function. Performed By: #### P T #### [facility] [address] [place] [address] GFR/1.73 sq M.predicted MDRD (S/P/Bld) [Vol rate/Area] mL/min/{1.73_m2} Normal >60 [facility] Comment on above: Result Comment: >60 mL/min/1.73m2 EGFR, calc. for ages 18 and older using the MDRD formula (not corrected for weight), is valid for stable renal function. Performed By: #### P T #### [facility] [address] [place] [address] Glucose [Mass/Vol] 144 mg/dL Critically high 70-99 [facility] Comment on above: Performed By: #### P T #### [facility] [address] [place] [address] Potassium reflex Mg 4.1 mEq/L Normal 3.4-4.9 [facility] Comment on above: Performed By: #### P T #### [facility] [address] [place] [address] Sodium [Moles/Vol] 135 mmol/L Normal 135-144 [facility] Comment on above: Performed By: #### P T #### [facility] [address] [place] [address] Urea nitrogen [Mass/Vol] 6 mg/dL Low 8-23 [facility] Comment on above: Performed By: #### P T #### [facility] [address] [place] [address] CBC With Platelet and Differ entialon 11-14-2018 Basophils (Bld) [#/Vol] 0.1 10*3/uL Normal 0.0-0.2 [facility] Comment on above: Performed By: #### P T #### [facility] [address] [place] [address] Basophils/100 WBC (Bld) 0.5 % Normal [facility] Comment on above: Performed By: #### P T #### [facility] [address] [place] [address] Eosinophils (Bld) [#/Vol] 0.1 10*3/uL Normal 0.0-0.7 [facility] Comment on above: Performed By: #### P T #### [facility] [address] [place] [address] Eosinophils/100 WBC (Bld) 0.8 % Normal [facility] Comment on above: Performed By: #### P T #### [facility] [address] [place] [address] Erythrocyte distribution width (RBC) [Ratio] 14.1 % Normal 11.5-14.5 [facility] Comment on above: Performed By: #### P T #### [facility] [address] [place] [address] Hematocrit (Bld) [Volume fraction] 35.4 % Low 37.0-47.0 [facility] Comment on above: Performed By: #### P T #### [facility] [address] [place] [address] Hemoglobin (Bld) [Mass/Vol] 11.7 g/dL Low 12.0-16.0 [facility] Comment on above: Performed By: #### P T #### [facility] [address] [place] [address] Lymphocytes (Bld) [#/Vol] 2.7 10*3/uL Normal 1.0-4.8 [facility] Comment on above: Performed By: #### P T #### [facility] [address] [place] [address] Lymphocytes/100 WBC (Bld) 15.7 % Normal [facility] Comment on above: Performed By: #### P T #### [facility] [address] [place] [address] MCH (RBC) [Entitic mass] 29.7 pg Normal 27.0-31.3 [facility] Comment on above: Performed By: #### P T #### [facility] [address] [place] [address] MCHC (RBC) [Mass/Vol] 33.1 % Normal 33.0-37.0 [facility] Comment on above: Performed By: #### P T #### [facility] [address] [place] [address] MCV (RBC) [Entitic vol] 89.6 fL Normal 82.0-100.0 [facility] Comment on above: Performed By: #### P T #### [facility] [address] [place] [address] Monocytes (Bld) [#/Vol] 1.4 10*3/uL Critically high 0.2-0. 8 [facility] Comment on above: Performed By: #### P T #### [facility] [address] [place] [address] Monocytes/100 WBC (Bld) 7.9 % Normal [facility] Comment on above: Performed By: #### P T #### [facility] [address] [place] [address] Neutrophils (Bld) [#/Vol] 12.8 10*3/uL Critically high 1.4-6.5 [facility] Comment on above: Performed By: #### P T #### [facility] [address] [place] [address] Neutrophils/100 WBC (Bld) 75.1 % Normal [facility] Comment on above: Performed By: #### P T #### [facility] [address] [place] [address] Platelets (Bld) [#/Vol] 345 10*3/uL Normal 130-400 [facility] Comment on above: Performed By: #### P T #### [facility] [address] [place] [address] RBC (Bld) [#/Vol] 3.95 10*6/uL Low 4.20-5.40 [facility] Comment on above: Performed By: #### P T #### [facility] [address] [place] [address] WBC (Bld) [#/Vol] 17.0 10*3/uL Critically high 4.8-10.8 [facility] Comment on above: Performed By: #### P T #### [facility] [address] [place] [address] POCT Glucoseon 11-14-2018 Glucose [Mass/Vol] 116 mg/dL Critically high 60-115 [facility] Comment on above: Performed By: #### P T #### [facility] [address] [place] [address] POC Performed on ACCU-CHEK Normal [facility] Comment on above: Performed By: #### P T #### [facility] [address] [place] [address] XR LUMBAR SPINE (2-3 VIEWS)o n 11-14-2018 [...] 3. Moderate degenerative changes L5-S1. Interpreted by: Mohsne Childers MD Signed by: Mohsen Childers MD 11/14/18 Final result Normal [facility] Basic Metabolic Panel Reflex Mgon 11-13-2018 Anion gap [Moles/Vol] 13 mmol/L Normal 9-15 [facility] Comment on above: Performed By: #### P T #### [facility] [address] [place] [address] Calcium [Mass/Vol] 9.0 mg/dL Normal 8.5-9.9 [facility] Comment on above: Performed By: #### P T #### [facility] [address] [place] [address] Chloride [Moles/Vol] 101 mmol/L Normal 95-107 [facility] [place] Comment on above: Performed By: #### P T #### [facility] [address] [place] [address] CO2 [Moles/Vol] 24 mmol/L Normal 20-31 [facility] Comment on above: Performed By: #### P T #### [facility] [address] [place] [address] Creatinine [Mass/Vol] 0.62 mg/dL Normal 0.50-0.90 [facility] Comment on above: Performed By: #### P T #### [facility] [address] [place] [address] GFR/1.73 sq M predicted among blacks MDRD (S/P/Bld) [Vol rate/Area] mL/min/{1.73_m2} Normal >60 [facility] Comment on above: Result Comment: >60 mL/min/1.73m2 EGFR, calc. for ages 18 and older using the MDRD formula (not corrected for weight), is valid for stable renal function. Performed By: #### P T #### [facility] [address] [place] [address] GFR/1.73 sq M.predicted MDRD (S/P/Bld) [Vol rate/Area] mL/min/{1.73_m2} Normal >60 [facility] Comment on above: Result Comment: >60 mL/min/1.73m2 EGFR, calc. for ages 18 and older using the MDRD formula (not corrected for weight), is valid for stable renal function. Performed By: #### P T #### [facility] [address] [place] [address] Glucose [Mass/Vol] 136 mg/dL Critically high 70-99 [facility] Comment on above: Performed By: #### P T #### [facility] [address] [place] [address] Potassium reflex Mg 3.6 mEq/L Normal 3.4-4.9 [facility] Comment on above: Performed By: #### P T #### [facility] [address] [place] [address] Sodium [Moles/Vol] 138 mmol/L Normal 135-144 [facility] Comment on above: Performed By: #### P T #### [facility] [address] [place] [address] Urea nitrogen [Mass/Vol] 7 mg/dL Low 8-23 [facility] Comment on above: Performed By: #### P T #### [facility] [address] [place] [address] CBC With Platelet No Differe ntialon 11-13-2018 Erythrocyte distribution width (RBC) [Ratio] 14.2 % Normal 11.5-14.5 [facility] Comment on above: Performed By: #### P T #### [facility] [address] [place] [address] Hematocrit (Bld) [Volume fraction] 40.3 % Normal 37.0-47.0 [facility] Comment on above: Performed By: #### P T #### [facility] [address] [place] [address] Hemoglobin (Bld) [Mass/Vol] 13.1 g/dL Normal 12.0-16.0 [facility] Comment on above: Performed By: #### P T #### [facility] [address] [place] [address] MCH (RBC) [Entitic mass] 29.1 pg Normal 27.0-31.3 [facility] Comment on above: Performed By: #### P T #### [facility] [address] [place] [address] MCHC (RBC) [Mass/Vol] 32.4 % Low 33.0-37.0 [facility] Comment on above: Performed By: #### P T #### [facility] [address] [place] [address] MCV (RBC) [Entitic vol] 89.9 fL Normal 82.0-100.0 [facility] Comment on above: Performed By: #### P T #### [facility] [address] [place] [address] Platelets (Bld) [#/Vol] 394 10*3/uL Normal 130-400 [facility] Comment on above: Performed By: #### P T #### [facility] [address] [place] [address] RBC (Bld) [#/Vol] 4.48 10*6/uL Normal 4.20-5.40 [facility] Comment on above: Performed By: #### P T #### [facility] [address] [place] [address] WBC (Bld) [#/Vol] 11.8 10*3/uL Critically high 4.8-10.8 [facility] Comment on above: Performed By: #### P T #### [facility] [address] [facility] [address] Culture, MRSA Screenon 11-13 Culture, MRSA Screen ORDERED BY: BRENNAN HERRON SOURCE: Nares COLLECTED: 11/13/18 09:29 ANTIBIOTICS AT DI.: RECEIVED : 11/13/18 09:29 Culture, MRSA Screen FINAL 11/14/18 08:02 No MRSA isolated Normal [facility] Comment on above: Performed By: #### P T #### [facility] [address] [place] [address] FLUORO FOR SURGICAL PROCEDUR ESon 11-13-2018 FLUORO [...] Mohsen Childers MD 11/13/18 Final result Normal [facility] Surgical Specimenon 11-14-19 Surgical Specimen [facility] [address] [place] [address] FINAL SURGICAL PATHOLOGY REPORT Patient Name: HIRAM MADRID Accession No: [id number] Age Sex: 1935 Location: [facility] [id number] Account No: [id number] Collected: 11/13/2018 Med Rec No: [id number] Received: 11/14/2018 Attend Phys: LENNY CORRAL Completed: 11/15/2018 Perform Phys: LENNY CORRAL 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 ALIYURI/UVALDO CLINICAL INFORMATION: Stenosis, radiculopathy, spondylosis, disc. SPECIMEN: Disc GROSS DESCRIPTION: Specimen received in formalin in a container labeled with patient's name and designated as spine . Specimen consists of multiple brownish-marti soft firm tissue fragments measuring in aggregate 3.0 x 2.0 x 0.4 cm. Sections representatives are submitted in two cassettes after brief decalcification. UVALDO/NIKKY CPT: 14059 X1 45624 X1 STANLEY GRAFF M.D. 11/15/2018 Electronically signed out by Page 1 of 1 [facility] Comment on above: Performed By: #### P TT #### [place] [address] Type and Screen Capture 3 sc rn cellon 11-13-2018 Type and Screen Capture 3 scrn cell PATIENT: MERCY GANDHI LOC: LCOPS,ORPOOL,NON BILL# : [id number] : 1935 SEX: F ORDERED BY: GOPAL AMIN ORDERED : 11/13/2018 08:10 COLLECTED: 11/13/2018 09:24 ORDER : [id number] RECEIVED : 11/13/2018 09:24 -- TEST NAME RESULT UNITS RANGES ABN FL ST ABORH Capture A POS F Antibody 3 Cell Scrn Captu NEG F - Normal [facility] Comment on above: Performed By: #### T S3C #### [facility] [address] [place] [address] XR SPINE ENTIRE (2-3 VIEWS)o n 11-13-2018 [...] Mohsen Childers MD 11/13/18 Final result Normal [facility] MRI LUMBAR SPINE W WO [...] SIGNS OF UNDERLYING PATHOLOGY OR RECENT INJURY. [facility]- [place], [place] Joseph, Chpo Incoming Radiant Results From pic5/Marketshot - 11/05/2018 3:07 PM EDT EXAMINATION: MRI [...] SIGNS OF UNDERLYING PATHOLOGY OR RECENT INJURY. [facility] MRI LUMBAR SPINE W WO CONTRAST EXAMINATION: [...] Pearl Varghese MD 11/05/18 Final result Normal [facility] Otheron 11-05-2018 Joseph, Chpo Incoming Radiant Results From SpareTimecribe/Pacs - 11/05/2018 1:21 PM EDT EXAMINATION: XR [...] AND POSTOPERATIVE FINDINGS, WITHOUT ACUTE SUPERIMPOSED ABNORMALITY. [facility] EXAMINATION: XR LUMBAR SPINE (MIN 4 VIEWS), [...] AND POSTOPERATIVE FINDINGS, WITHOUT ACUTE SUPERIMPOSED ABNORMALITY. [place] XR CHEST (2 VW)on 11-05-2018 XR [...] Pearl Varghese MD 11/05/18 Final result Normal [facility] XR LUMBAR SPINE (MIN 4 [...] Pearl Varghese MD 11/05/18 Final result Normal [facility] APTTon 11-04-2018 aPTT Coag (Bld) [Time] 27.9 s [place], [place] Comment on above: Effective 09/06/2018: Please note methodology and/or reference ranges have changed. aPTT - Heparin Therapeutic Range: 74.0 - 106 seconds C-Reactive Proteinon 019 CRP [Mass/Vol] 1.3 mg/L Normal 0.0-5.0 [facility] Comment on above: Performed By: #### C RP #### [facility] [address] [facility] [address] CRP [Mass/Vol] 1.3 mg/L 0 - 5 mg/L [place], [place] CBC Auto Differentialon 10-21 Basophils (Bld) [#/Vol] 0.1 10*3/uL 0 - 0.2 K/u L [place] Basophils/100 WBC (Bld) 1.1 % M [place], [place] Eosinophils (Bld) [#/Vol] 0.2 10*3/uL 0 - 0.7 K/uL [place] Eosinophils/100 WBC (Bld) 1.3 % [place] Erythrocyte distribution width (RBC) [Ratio] 13.9 % 11.5 - 14.5 % [place] Hematocrit (Bld) [Volume fraction] 41.3 % 37 - 47 % [place] Hemoglobin (Bld) [Mass/Vol] 14.3 g/dL 12 - 16 g/dL [place] Interpretation and review of laboratory results Abnormal [place] Lymphocytes (Bld) [#/Vol] 3.5 10*3/uL 1 - 4.8 K/uL [place] Lymphocytes/100 WBC (Bld) 28.2 % [place] MCH (RBC) [Entitic mass] 30.5 pg 27 - 31.3 p g [place] MCHC (RBC) [Mass/Vol] 34.6 % 33 - 37 % [place] MCV (RBC) [Entitic vol] 88.0 fL 82 - 100 fL [place] Monocytes (Bld) [#/Vol] 0.8 10*3/uL 0.2 - 0.8 K/uL [place] Monocytes/100 WBC (Bld) 6.8 % [place] Neutrophils Absolute 7.7 K/uL High 1.4 - 6 .5 K/uL [place] Neutrophils/100 WBC (Bld) 62.6 % [place] Platelets (Bld) [#/Vol] 435 10*3/uL High 130 - 400 K/uL [place] RBC (Bld) [#/Vol] 4.69 10*6/uL [place] WBC (Bld) [#/Vol] 12.4 10*3/uL High 4.8 - 10.8 K/uL [place] CBC With Platelet and Differ entialon 11-04-2018 Basophils (Bld) [#/Vol] 0.1 10*3/uL Normal 0.0-0.2 [facility] Comment on above: Performed By: #### C BCWD #### [facility] [address] [place] [address] Basophils/100 WBC (Bld) 1.1 % Normal [facility] Comment on above: Performed By: #### C BCWD #### [facility] [address] [place] [address] Eosinophils (Bld) [#/Vol] 0.2 10*3/uL Normal 0.0-0.7 [facility] Comment on above: Performed By: #### C BCWD #### [facility] [address] [place] [address] Eosinophils/100 WBC (Bld) 1.3 % Normal [facility] Comment on above: Performed By: #### C BCWD #### [facility] [address] [place] [address] Erythrocyte distribution width (RBC) [Ratio] 13.9 % Normal 11.5-14.5 [facility] Comment on above: Performed By: #### C BCWD #### [facility] [address] [place] [address] Hematocrit (Bld) [Volume fraction] 41.3 % Normal 37.0-47.0 [facility] Comment on above: Performed By: #### C BCWD #### [facility] [address] [place] [address] Hemoglobin (Bld) [Mass/Vol] 14.3 g/dL Normal 12.0-16.0 [facility] Comment on above: Performed By: #### C BCWD #### [facility] [address] [place] [address] Lymphocytes (Bld) [#/Vol] 3.5 10*3/uL Normal 1.0-4.8 [facility] Comment on above: Performed By: #### C BCWD #### [facility] [address] [place] [address] Lymphocytes/100 WBC (Bld) 28.2 % Normal [facility] Comment on above: Performed By: #### C BCWD #### [facility] [address] [place] [address] MCH (RBC) [Entitic mass] 30.5 pg Normal 27.0-31.3 [facility] Comment on above: Performed By: #### C BCWD #### [facility] [address] [place] [address] MCHC (RBC) [Mass/Vol] 34.6 % Normal 33.0-37.0 [facility] Comment on above: Performed By: #### C BCWD #### [facility] [address] [place] [address] MCV (RBC) [Entitic vol] 88.0 fL Normal 82.0-100.0 [facility] Comment on above: Performed By: #### C BCWD #### [facility] [address] [place] [address] Monocytes (Bld) [#/Vol] 0.8 10*3/uL Normal 0.2-0.8 [facility] Comment on above: Performed By: #### C BCWD #### [facility] [address] [place] [address] Monocytes/100 WBC (Bld) 6.8 % Normal [facility] Comment on above: Performed By: #### C BCWD #### [facility] [address] [place] [address] Neutrophils (Bld) [#/Vol] 7.7 10*3/uL Critically high 1.4-6.5 [facility] Comment on above: Performed By: #### C BCWD #### [facility] [address] [place] [address] Neutrophils/100 WBC (Bld) 62.6 % Normal [facility] Comment on above: Performed By: #### C BCWD #### [facility] [address] [place] [address] Platelets (Bld) [#/Vol] 435 10*3/uL Critically high 130-40 0 [facility] Comment on above: Performed By: #### C BCWD #### [facility] [address] [place] [address] RBC (Bld) [#/Vol] 4.69 10*6/uL Normal 4.20-5.40 [facility] Comment on above: Performed By: #### C BCWD #### [facility] [address] [place] [address] WBC (Bld) [#/Vol] 12.4 10*3/uL Critically high 4.8-10.8 [facility] Comment on above: Performed By: #### C BCWD #### [facility] [address] [place] [address] Comprehensive Metabolic Pane carlos 11-04-2018 Anion gap [Moles/Vol] 14 mmol/L Normal 9-15 [facility] Comment on above: Order Comment: CALL [facility] tel. [phone], Potassium results called to and read back by onofre Millan RN, 11/04/2018 16:24, by WEBAM Performed By: #### C MP #### [facility] [address] [place] [address] Bilirubin [Mass/Vol] 0.4 mg/dL Normal 0.2-0.7 [facility] [place] Comment on above: Order Comment: CALL [facility] tel. [phone], Potassium results called to and read back by onofre Millan RN, 11/04/2018 16:24, by WEBAM Performed By: #### C MP #### [facility] [address] [place] [address] GFR/1.73 sq M predicted among blacks MDRD (S/P/Bld) [Vol rate/Area] mL/min/{1.73_m2} Normal >60 [facility] Comment on above: Order Comment: CALL [facility] tel. [phone], Potassium results called to and read back by onofre Millan RN, 11/04/2018 16:24, by WEBAM Result Comment: >60 mL/min/1.73m2 EGFR, calc. for ages 18 and older using the MDRD formula (not corrected for weight), is valid for stable renal function. Performed By: #### C MP #### [facility] [address] [place] [address] GFR/1.73 sq M.predicted MDRD (S/P/Bld) [Vol rate/Area] mL/min/{1.73_m2} Normal >60 [facility] Comment on above: Order Comment: CALL [facility] tel. [phone], Potassium results called to and read back by onofre Millan RN, 11/04/2018 16:24, by WEBAM Result Comment: >60 mL/min/1.73m2 EGFR, calc. for ages 18 and older using the MDRD formula (not corrected for weight), is valid for stable renal function. Performed By: #### C MP #### [facility] [address] [place] [address] Albumin [Mass/Vol] 4.5 g/dL Normal 3.5-4.6 [facility] Comment on above: Order Comment: CALL [facility] tel. [phone], Potassium results called to and read back by onofre Millan RN, 11/04/2018 16:24, by WEBAM Performed By: #### C MP #### [facility] [address] [place] [place] [address] ALP [Catalytic activity/Vol] 76 U/L Normal 40-130 [facility] Comment on above: Order Comment: CALL [facility] tel. [phone], Potassium results called to and read back by onofre Millan RN, 11/04/2018 16:24, by WEBAM Performed By: #### C MP #### [facility] [address] [place] [place] [address] ALT [Catalytic activity/Vol] 15 U/L Normal 0-33 [facility] Comment on above: Order Comment: CALL [facility] tel. [phone], Potassium results called to and read back by onofre Millan RN, 11/04/2018 16:24, by WEBAM Performed By: #### C MP #### [facility] [address] [place] [address] AST [Catalytic activity/Vol] 20 U/L Normal 0-35 [facility] Comment on above: Order Comment: CALL [facility] tel. [phone], Potassium results called to and read back by onofre Millan RN, 11/04/2018 16:24, by WEBAM Performed By: #### C MP #### [facility] [address] [place] [address] Calcium [Mass/Vol] 9.9 mg/dL Normal 8.5-9.9 [place] Comment on above: Order Comment: CALL [facility] tel. [phone], Potassium results called to and read back by onofre Millan RN, 11/04/2018 16:24, by WEBAM Performed By: #### C MP #### [facility] [address] [place] [address] Chloride [Moles/Vol] 96 mmol/L Normal 95-107 [place], [place] Comment on above: Order Comment: CALL [facility] tel. [phone], Potassium results called to and read back by onofre Millan RN, 11/04/2018 16:24, by WEBAM Performed By: #### C MP #### [facility] [address] [place] [address] CO2 [Moles/Vol] 24 mmol/L Normal 20-31 [place], [place] Comment on above: Order Comment: CALL [facility] tel. [phone], Potassium results called to and read back by onofre Millan RN, 11/04/2018 16:24, by WEBAM Performed By: #### C MP #### [facility] [address] [place] [address] Creatinine [Mass/Vol] 0.67 mg/dL Normal 0.50-0.90 [place] Comment on above: Order Comment: CALL [facility] tel. [phone], Potassium results called to and read back by onofre Millan RN, 11/04/2018 16:24, by WEBAM Performed By: #### C MP #### [facility] [address] [facility] [address] Globulin (S) [Mass/Vol] 2.8 g/dL Normal 2.3-3.5 [place] Comment on above: Order Comment: CALL [facility] tel. [phone], Potassium results called to and read back by onofre Millan RN, 11/04/2018 16:24, by WEBAM Performed By: #### C MP #### [facility] [address] [place] [address] Glucose [Mass/Vol] 109 mg/dL Critically high 70-99 [place] Comment on above: Order Comment: CALL [facility] tel. [phone], Potassium results called to and read back by onofre Millan RN, 11/04/2018 16:24, by WEBAM Performed By: #### C MP #### [facility] [address] [place] [address] Potassium [Moles/Vol] 3.0 mmol/L Critically low 3.4-4.9 [place] Comment on above: Order Comment: CALL [facility] tel. [phone], Potassium results called to and read back by onofre Millan RN, 11/04/2018 16:24, by WEBAM Performed By: #### C MP #### [facility] [address] [place] [address] Protein [Mass/Vol] 7.3 g/dL Normal 6.3-8.0 [place] Comment on above: Order Comment: CALL [facility] tel. [phone], Potassium results called to and read back by onofre Millan RN, 11/04/2018 16:24, by WEBAM Performed By: #### C MP #### [facility] [address] [place] [address] Sodium [Moles/Vol] 134 mmol/L Low 135-144 [place] Comment on above: Order Comment: CALL [facility] tel. [phone], Potassium results called to and read back by onofre Millan RN, 11/04/2018 16:24, by WEBAM Performed By: #### C MP #### [facility] [address] [place] [address] Urea nitrogen [Mass/Vol] 8 mg/dL Normal 8-23 [place] Comment on above: Order Comment: CALL [facility] tel. [phone], Potassium results called to and read back by onofre Millan RN, 11/04/2018 16:24, by TAMMY Performed By: #### C MP #### [facility] [address] [facility] [address] Anion gap [Moles/Vol] 14 mmol/L [place] Bilirubin Ql (U) 0.4 mg/dL 0.2 - 0.7 mg/dL [place] GFR >60.0 >60 [place] Comment on above: >60 mL/min/1.73m2 EG FR, calc. for ages 18 and older using the MDRD formula (not corrected for weight), is valid for stable renal function. GFR Non- >60.0 >60 [place] Comment on above: >60 mL/min/1.73m2 EG FR, calc. for ages 18 and older using the MDRD formula (not corrected for weight), is valid for stable renal function. Interpretation and review of laboratory results Abnormal [place] Pot[facility]Moles/Vol] [phone] Potassium results called to and read back by onofre Millan RN, 11/04/2018 16:24, by TAMMY [place] Partial Thromboplastin Timeo n 11-04-2018 aPTT Coag (Bld) [Time] 27.9 s Normal 24.4-36.8 [facility] Comment on above: Result Comment: Effe ctive 09/06/2018: Please note methodology and/or reference ranges have changed. aPTT - Heparin Therapeutic Range: 74.0 - 106 seconds Performed By: #### P TT #### [facility] [address] [facility] [address] Prothrombin Timeon 9 INR Coag (PPP) [Relative time] 0.9 {INR} Normal [facility] Comment on above: Result Comment: Warf camden Therapy INR Therapeutic: 2.0-3.0 With Mechanical Valve: >2.5 Low-intensity Therapeutic Range: 1.5-2.0 Mod-intensity Therapeutic Range: 2.0-3.0 High-intensity Therapeutic Range: 2.5-3.5 HIgh-intensity Therapeutic Range: 3.0-4.0 Common Critical/Alarm Value: 5.0 Common Upper Limit Reported: 10.0 Effective 08/30/2018: Please note methodology and/or reference ranges have changed. Performed By: #### P T #### [facility] [address] [place] [address] PT Coag (PPP) [Time] 12.1 s Low 12.3-14.9 [facility] [place] Comment on above: Result Comment: Effe ctive 08/30/18 Please note methodology and/or reference ranges have changed. Performed By: #### P T #### [facility] [address] [place] [address] Protime-INRon 11-04-2018 INR Coag (PPP) [Relative time] 0.9 {INR} [place] Comment on above: Warfarin Therapy INR Therapeutic: 2.0-3.0 With Mechanical Valve: >2.5 Low-intensity Therapeutic Range: 1.5-2.0 Mod-intensity Therapeutic Range: 2.0-3.0 High-intensity Therapeutic Range: 2.5-3.5 HIgh-intensity Therapeutic Range: 3.0-4.0 Common Critical/Alarm Value: 5.0 Common Upper Limit Reported: 10.0 Effective 08/30/2018: Please note methodology and/or reference ranges have changed. Interpretation and review of laboratory results Abnormal [place] PT Coag (PPP) [Time] 12.1 s Low [place], [place] Comment on above: Effective 08/30/18 Please note methodology and/or reference ranges have changed. Sedimentation Rateon 019 Sedimentation Rate 12 mm Normal 0-30 [facility] Comment on above: Performed By: #### E SR #### [facility] [address] [place] [address] Sed Rate 12 mm 0 - 30 mm [place] Vital Signs Date Time Vital Sign Value Performing Clinician Facility 08-07-2024 13:19-0400 Body height 154.9 cm Yosi Atkins DPM FACFAS Work Phone: [facility] 08-07-2024 13:19-0400 Body mass index (BMI) [Ratio] 26.83 kg/m2 Yosi Dolce DPM FACFAS Work Phone: [facility] 08-07-2024 13:19-0400 Body weight 64.41 kg Yosi Dolce DPM FACFAS Work Phone: [facility] 08-07-2024 13:19-0400 Diastolic blood pressure 81 mm[Hg] Yosi Dolce DPM FACFAS Work Phone: [facility] 08-07-2024 13:19-0400 Heart rate 75 /min Yosi Dolce DPM FACFAS Work Phone: [facility] 08-07-2024 13:19-0400 Systolic blood pressure 147 mm[Hg] Yosi Dolce DPM FACFAS Work Phone: [facility] 07-24-2024 13:28-0400 Body height 154.9 cm Yosi Dolce DPM FACFAS Work Phone: [facility] 07-24-2024 13:28-0400 Body mass index (BMI) [Ratio] 26.83 kg/m2 Yosi Dolce DPM FACFAS Work Phone: [facility] 07-24-2024 13:28-0400 Body weight 64.41 kg Yosi Dolce DPM FACFAS Work Phone: [facility] 07-24-2024 13:28-0400 Diastolic blood pressure 84 mm[Hg] Yosi Dolce DPM FACFAS Work Phone: [facility] 07-24-2024 13:28-0400 Heart rate 77 /min Yosi Dolce DPM FACFAS Work Phone: [facility] 07-24-2024 13:28-0400 Systolic blood pressure 158 mm[Hg] Yosi Dolce DPM FACFAS Work Phone: [facility] 05-08-2024 15:19-0400 Body height 154.94 cm Mami Daniels MD Work Phone: [facility] 05-08-2024 15:19-0400 Body mass index (BMI) [Ratio] 27.8 kg/m2 Mami Daniels MD Work Phone: [facility] 05-08-2024 15:19-0400 Body weight 67 kg Mami Daniels MD Work Phone: [facility] 01-25-2024 16:23-0500 Body temperature 98.1 [degF] Mami Daniels MD Work Phone: [facility] 01-25-2024 16:23-0500 Diastolic blood pressure 68 mm[Hg] Mami Daniels MD Work Phone: [facility] 01-25-2024 16:23-0500 Heart rate 72 /min Mami Daniels MD Work Phone: [facility] 01-25-2024 16:23-0500 Respiratory rate 16 /min Mami Daniels MD Work Phone: [facility] 01-25-2024 16:23-0500 SaO2% (BldA) [Mass fraction] 94 % Mami Daniels MD Work Phone: [facility] 01-25-2024 16:23-0500 Systolic blood pressure 157 mm[Hg] Mami Daniels MD Work Phone: [facility] 01-25-2024 05:43-0500 Body weight 68.8 kg Mami Daniels MD Work Phone: [facility] 01-23-2024 12:37-0500 Body height 154.94 cm Mami Daniels MD Work Phone: [facility] 05-03-2023 14:21-0400 Blood Pressure Location Turner DOSS [facility] [place] 05-03-2023 14:21-0400 Diastolic blood pressure 82 mm[Hg] Turner DOSS [facility] [place] 05-03-2023 14:21-0400 Heart rate 76 /min Turner DOSS [facility] [place] 05-03-2023 14:21-0400 Respiratory rate 16 /min Turner [facility] [place] 05-03-2023 14:21-0400 Systolic blood pressure 156 mm[Hg] Turner DOSS [facility] [place] 04-15-2023 13:38-0500 Diastolic blood pressure 70 mm[Hg] MD Mami Daniels Work Phone: [facility] 04-15-2023 13:38-0500 Heart rate 76 /min MD Mami Daniels Work Phone: [facility] 04-15-2023 13:38-0500 Respiratory rate 18 /min MD Mami Daniels Work Phone: [facility] 04-15-2023 13:38-0500 SaO2% (BldA) [Mass fraction] 97 % MD Mami Daniels Work Phone: [facility] 04-15-2023 13:38-0500 Systolic blood pressure 160 mm[Hg] MD Mami Daniels Work Phone: [facility] 04-15-2023 12:07-0500 Body height 154.94 cm MD Mami Daniels Work Phone: [facility] 04-15-2023 12:07-0500 Body temperature 97.8 [degF] MD Mami Daniels Work Phone: [facility] 04-15-2023 12:07-0500 Body weight 60.5 kg MD Mami Daniels Work Phone: [facility] 04-06-2023 11:51-0500 Body temperature 97.9 [degF] MD Mami Daniels Work Phone: [facility] 04-06-2023 11:51-0500 Diastolic blood pressure 76 mm[Hg] MD Mami Daniels Work Phone: [facility] 04-06-2023 11:51-0500 Heart rate 84 /min MD Mami Daniels Work Phone: [facility] 04-06-2023 11:51-0500 Respiratory rate 18 /min MD Mami Daniels Work Phone: [facility] 04-06-2023 11:51-0500 SaO2% (BldA) [Mass fraction] 97 % MD Mami Daniels Work Phone: [facility] 04-06-2023 11:51-0500 Systolic blood pressure 146 mm[Hg] MD Mami Daniels Work Phone: [facility] 04-06-2023 06:00-0500 Body weight 58.6 kg MD Mami Daniels Work Phone: [facility] 04-04-2023 13:15-0500 Body height 154.94 cm MD Mami Daniels Work Phone: [facility] 12-22-2022 11:40-0400 Blood Pressure Location MIKAYLAJAQUELINE WEISS [facility] 12-22-2022 11:40-0400 Diastolic blood pressure 84 mm[Hg] MIKAYLAABRAHAN RAMONRY [facility] 12-22-2022 11:40-0400 Systolic blood pressure 124 mm[Hg] MIKAYLA RAMONRY [facility] 08-06-2022 00:10-0400 Body temperature 97.3 [degF] MD Mami Daniels Work Phone: [facility] 08-06-2022 00:10-0400 Diastolic blood pressure 74 mm[Hg] MD Mami Daniels Work Phone: [facility] 08-06-2022 00:10-0400 Heart rate 80 /min MD Mami Daniels Work Phone: [facility] 08-06-2022 00:10-0400 Respiratory rate 18 /min MD Mami Daniels Work Phone: [facility] 08-06-2022 00:10-0400 SaO2% (BldA) [Mass fraction] 96 % MD Mami Daniels Work Phone: [facility] 08-06-2022 00:10-0400 Systolic blood pressure 177 mm[Hg] MD Mami Daniels Work Phone: [facility] 08-05-2022 19:51-0400 Body height 154.94 cm MD Mami Daniels Work Phone: [facility] 08-05-2022 19:51-0400 Body weight 67.6 kg MD Mami Daniels Work Phone: [facility] 11-20-2018 07:02-0400 Body Temperature 97 [degF] [facility] [place] 11-20-2018 07:02-0400 BP Diastolic 61 mm[Hg] [facility] [employer] [facility] [place] 11-20-2018 07:02-0400 BP Systolic 153 mm[Hg] [facility] [place] 11-20-2018 07:02-0400 Pulse (Heart Rate) 75 /min [facility] [place] 11-20-2018 07:02-0400 Pulse Oximetry 97 % [facility] [place] 11-20-2018 07:02-0400 Respiratory Rate 17 /min [facility], [place] 11-17-2018 05:54-0400 BMI (Body Mass Index) 27.62 kg/m2 [facility], [place] 11-17-2018 05:54-0400 Body weight 66.3 kg Mary [employer] [facility], [place] 11-15-2018 15:58-0400 Height 154.9 cm [facility], [place] 11-05-2018 07:30-0400 BP Diastolic 57 mm[Hg] [facility] [place] 11-05-2018 07:30-0400 BP Systolic 135 mm[Hg] [facility] [place] 11-05-2018 07:30-0400 Pulse (Heart Rate) 70 /min [facility] [place] 11-05-2018 07:30-0400 Pulse Oximetry 97 % [facility] [place] 11-04-2018 20:06-0400 Body Temperature 98.4 [degF] [facility] [place] 11-04-2018 20:06-0400 Respiratory Rate 16 /min [facility] [place] 11-04-2018 14:56-0400 BMI (Body Mass Index) 27.4 kg/m2 [facility] [place] 11-04-2018 14:56-0400 Body weight 65.77 kg [facility] [place] 11-04-2018 14:56-0400 Height 154.9 cm [facility] , [place] Encounters Encounter Date Encounter Type Care Provider Facility Start: 08-07-2024 End: 08-07-2024 Bamboo flowsheet Yosi Hung Atkins DPM FACFAS Work Phone: [facility] Start: 08-07-2024 End: 08-07-2024 Bamboo flowsheet Yosi Hung Atkins DPM FACFAS Work Phone: [facility] Start: 08-07-2024 End: 08-07-2024 Office outpatient visit 15 minutes Yosi Atkins DPM FACFAS Work Phone: [facility] Comment on above: Abscess, toe, left ( Primary Dx); Onychocryptosis; Pain in left toe(s); Onychomycosis; Pain in right toe(s) Start: 08-07-2024 End: 08-07-2024 ambulatory YOSI ATKINS Not Available Start: 07-24-2024 End: 07-24-2024 Bamboo flowsheet Yosi Hung Atkins DPM FACFAS Work Phone: [facility] Start: 07-24-2024 End: 07-24-2024 Bamboo flowsheet Yosi Hung Atkins DPM FACFAS Work Phone: [facility] Start: 07-24-2024 End: 07-24-2024 ambulatory YOSI ATKINS Not Available Start: 07-24-2024 End: 07-24-2024 Office outpatient new 30 minutes Yosi Atkins DPM FACFAS Work Phone: [facility] Comment on above: Onychocryptosis (Sole stevie Dx); Abscess, toe, left; Pain in left toe(s) Start: 05-08-2024 End: 05-08-2024 ambulatory Mami Daniels MD Work Phone: [facility] Work Phone: Start: 05-08-2024 End: 05-08-2024 Patient encounter procedure Mami Daniels MD Work Phone: [facility] Physician [facility] Work Phone: Start: 04-30-2024 End: 04-30-2024 Patient encounter procedure Mami Daniels MD Work Phone: [facility]-CT [facility] [place] Work Phone: Start: 04-30-2024 End: 04-30-2024 ambulatory Mami Daniels MD Work Phone: [facility] Work Phone: Start: 04-17-2024 End: 04-17-2024 ambulatory Mami Daniels MD Work Phone: [facility] Work Phone: Start: 04-17-2024 End: 04-17-2024 Patient encounter procedure Mami Daniels MD Work Phone: [facility] Physician [facility] Work Phone: Start: 04-13-2024 End: 04-13-2024 ambulatory Mami Daniels MD Work Phone: [facility] Work Phone: Start: 04-13-2024 End: 04-13-2024 Patient encounter procedure Mami Daniels MD Work Phone: [facility]-XRay [facility] [place] Work Phone: Start: 03-25-2024 End: 03-25-2024 ambulatory Mami Daniels MD Work Phone: [facility] Work Phone: Start: 03-25-2024 End: 03-25-2024 Departed Referred Mami Daniels MD Work Phone: [facility]-Lab [facility] Work Phone: Start: 03-25-2024 End: 03-25-2024 Patient encounter procedure Mami Daniels MD Work Phone: [facility]-Lab [facility] Work Phone: Start: 03-06-2024 End: 03-06-2024 ambulatory Mami Daniels MD Work Phone: [facility] Work Phone: Start: 03-06-2024 End: 03-06-2024 Patient encounter procedure Mami Daniels MD Work Phone: [facility] Physician [facility] Work Phone: Start: 03-01-2024 End: 03-01-2024 Patient encounter procedure Mami Daniels MD Work Phone[facility] Work Phone: Start: 03-01-2024 End: 03-01-2024 ambulatory Mami Daniels MD Work Phone: [facility] Work Phone: Start: 01-24-2024 End: 01-25-2024 Evaluation and management of inpatient Obaydah M Daromar Facility:[facility] Start: 01-24-2024 Non-patient / Non-visit Dayana Daniels MD Work Phone: [facility] Physician [facility] Work Phone: Start: 01-24-2024 Non-patient / Non-visit Dayana Daniels MD Work Phone: [facility] Physician [facility] Work Phone: Start: 06-29-2023 ambulatory MIKAYLAJAQUELINE WEISS Claudiai ty:EU Neeraj Start: 06-28-2023 End: 06-28-2023 ambulatory Turner R NILL Facility:[facility] Start: 06-28-2023 End: 06-28-2023 Patient encounter procedure Turner R NILL [facility] General Surgery [place] Start: 06-21-2023 End: 06-21-2023 ambulatory MD Mami Daniels Work Phone: [facility] Work Phone: Start: 06-21-2023 End: 06-21-2023 Departed Referred MD Mami Daniels Work Phone: [facility]-LAB [facility] Start: 06-21-2023 End: 06-21-2023 ambulatory Turner R NILL Facility:[id number] Start: 05-03-2023 End: 05-03-2023 ambulatory Mami Daniels Facility:[facility] [place] Start: 05-03-2023 End: 05-03-2023 Patient encounter procedure Turner R NILL General Surgery Nill/Said [place] Start: 04-15-2023 End: 04-15-2023 Emergency department patient visit MD Mami Daniels Work Phone: [facility]-Emergency Room Work Phone: Start: 04-13-2023 ambulatory Turner NILL Facility:[facility] [place] Start: 04-12-2023 Non-patient / Non-visit MD Aime Daniels Work Phone: [facility] Work Phone: Start: 04-03-2023 Non-patient / Non-visit MD Aime Daniels Work Phone: [facility] Physician [facility] Nephrology Work Phone: Start: 04-02-2023 Non-patient / Non-visit MD Aime Daniels Work Phone: [facility] Physician Group-[facility] Med OutPt Work Phone: Start: 04-02-2023 End: 04-06-2023 Evaluation and management of inpatient MD Mami Daniels Work Phone: [facility] Work Phone: Start: 01-11-2023 End: 01-11-2023 ambulatory LESLYDRU ALANIZ [facility] Start: 12-22-2022 End: 12-22-2022 ambulatory MIKAYLA WEISS Facility:[facility] Start: 12-22-2022 End: 12-22-2022 Patient encounter procedure MIKAYLA WEISS [facility] Start: 10-14-2022 End: 10-14-2022 ambulatory LESLY ALANIZ [facility] Start: 08-05-2022 End: 08-06-2022 Emergency department patient visit MD Mami Daniels Work Phone: [facility]-Emergency Room Work Phone: Start: 06-13-2022 End: 06-14-[address] MAMI DANIELS . Facility:[facility] Start: 05-19-[address] MAMI DANIELS . Facili ty:[facility] Start: 04-18-2022 End: 04-19-[address] VALERIE DARDEN Facility:[facility] Start: 04-04-2022 End: 04-04-2022 [facility] Start: 01-30-[address] MAMI DANIELS . Facili ty:[facility] Start: 01-04-2022 End: 01-05-[address] MAMI DANIELS . Facility:[facility] Start: 12-26-2021 End: 12-29-2021 Evaluation and management of inpatient DR MAMI DANIELS . Facility:[facility] Start: 12-02-2021 End: 01-04-2022 Pre-admission assessment Alie Santos [facility] Start: 11-30-2021 End: 12-01-[address] JESUS BRUNO Facility:[facility] Start: 11-09-2021 End: 11-10-[address] CALISTA ACEVES Facility:[facility] Start: 08-06-2021 End: 08-07-[address] VALERIE DARDEN Facility:[facility] Start: 07-28-2021 End: 07-29-[address] CALISTA ACEVES Facility:[facility] Start: 06-22-2021 End: 06-22-2021 Patient encounter procedure VALERIE DARDEN [facility] Start: 11-15-2018 End: 11-20-2018 Evaluation and management of inpatient MARY VEGA [facility] Start: 11-15-2018 End: 11-20-2018 Evaluation and management of inpatient Mary Vega Work Phone: [facility] Comment on above: Spinal stenosis of l umbosacral region (Primary Dx); Impaired mobility; Vasovagal syncope Start: 11-13-2018 End: 11-15-2018 Evaluation and management of inpatient LENNY CORRAL [facility] Start: 11-13-2018 End: 11-15-2018 Patient encounter procedure LENNY CORRAL [facility] Start: 11-04-2018 End: 11-05-2018 Patient encounter procedure CALISTA ACEVES [facility] Start: 11-04-2018 End: 11-05-2018 Emergency department patient visit Lenny Corral Work Phone: [facility] Comment on above: Lumbar radiculopathy (Primary Dx); Intractable low back pain Start: 04-19-2018 End: 04-20-2018 Patient encounter procedure DEFAULT PHYSICIAN Facility:[facility] Procedures Date Procedure Procedure Detail Performing Clinician Start: 04-30-2024 CT cervical spine wi thout contrast Mami Daniels MD Work Phone: Start: 04-30-2024 X-ray of cervical spine Mami Daniels MD Work Phone: Start: 04-12-2024 X-ray of cervical spine Mami Daniels MD Work Phone: Start: 03-01-2024 X-ray of cervical spine Mami Daniels MD Work Phone: Start: 06-21-2023 Excision of basal ce ll carcinoma Turner NILL Comment on above: left nasolabial fold Start: [...] Lenny Jorge Luis Corral Work Phone: Start: 11-20-2018 INCENTIVE SPIROMETRY [...] Work Phone: Start: 11-18-2018 Assay of magnesium YOSI ACEVES Start: 11-18-2018 Assay of thyroid sti [...] 11-17-2018 Sedimentation rate r bc automated CALISTA ACEVSE Start: 11-17-2018 Blood count complete auto&auto difrntl wbc Mary Vega Work Phone: Start: 11-17-2018 C-reactive protein h igh sensitivity Mary Sangeeta Work Phone: Start: 11-17-2018 Sedimentation rate r bc automated Mary Vega Work Phone: Start: 11-17-2018 Dup-scan xtr veins c omplete bilateral study CALISTA ACEVES Start: 11-17-2018 INCENTIVE SPIROMETRY RT CALISTA ACEVES Start: 11-16-2018 Dup-scan xtr veins c omplete bilateral study Mary Sangeeta Work Phone: Start: 11-16-2018 INCENTIVE SPIROMETRY RT [...] w/ wom-mode compl spec&colr d Dul[facility] Work Phone: Start: 11-16-2018 INCENTIVE SPIROMETRY RT CALISTA ACEVES Start: 11-16-2018 INCENTIVE SPIROMETRY RT CALISTA ACEVES Start: 11-16-2018 NURSING COMMUNICATION M DORA ACEVES Start: 11-16-2018 INCENTIVE SPIROMETRY RT CALISTA KETAN Start: 11-16-2018 INITIATE OXYGEN THER APY PROTOCOL CALISTAPRESLEY ACEVES Start: 11-16-2018 INCENTIVE SPIROMETRY RT CALISTA KETAN Start: 11-16-2018 Blood count complete auto&auto difrntl wbc CALISTA KETAN Start: 11-16-2018 IP CONSULT TO CARDIOLOGY CALISTA ACEVES Start: 11-16-2018 Blood count complete auto&auto difrntl wbc Mary Vega Work Phone: Start: 11-16-2018 DAILY WEIGHTS CALISTA PETRA PATINO Start: 11-16-2018 INCENTIVE SPIROMETRY RT CALISTA KETAN [...] VTE PROPHYLAXIS CALISTA ACEVES Start: 11-15-2018 COMMUNICATIONS TOWER TECHNICIAN EVAL AND TREAT YOSI ACEVES Start: 11-15-2018 TOBACCO CESSATION EDUCATION CALISTA [...] above: Performed By: #### P TT #### [facility] [address] [place] [address] Start: 11-15-2018 Urnls dip stick/tabl et rgnt auto w/o microscopy Mary CokerChelsySantana Work Phone: Start: 11-15-2018 IP CONSULT TO [...] bacterial bl ood aerobic w/id isolates Mary CokerYuko Work Phone: Start: 11-15-2018 INCENTIVE SPIROMETRY RT [...] 11-15-2018 INITIATE OXYGEN THER APY PROTOCOL CALISTA CAEVES Start: 11-15-2018 PULSE OXIMETRY, CONTINUOUS CALISTA ACEVES [...] CALISTA ACEVES Start: 11-14-2018 INCENTIVE SPIROMETRY RT CLAISTA ACEVES Start: 11-14-2018 PULSE OXIMETRY, CONTINUOUS CALISTA [...] CALISTA ACEVES Start: 11-13-2018 PULSE OXIMETRY, CONTINUOUS CAILSTA ACEVES Start: 11-13-2018 ADVANCE DIET TOLE RATED [...] MARQUEZ ACEVES Start: 11-05-2018 ASSESS HEART TONES CALITSA ACEVES Start: 11-05-2018 DIET FULL LIQUID CALISTA ACEVES Start: 11-05-2018 FULL CODE CALISTA STAFFORD UN Start: 11-05-2018 INTAKE AND OUTPUT MARQUEZ ACEVES Start: 11-05-2018 NOTIFY PHYSICIAN (SPECIFY) CALISTA ACEVES Start: 11-05-2018 PLACE INTERMITTENT P NEUMATIC COMPRESSION DEVICE CALISTA ACEVES Start: 11-05-2018 VITAL SIGNS CALISTA STFAFORD UN Start: 11-05-2018 Mri spinal canal lum [...] wbc CALISTA ACEVES Start: 11-04-2018 C-reactive protein YOSI ACEVES Start: 11-04-2018 Comprehensive metabo lic panel [...] Treatment Date Care Activity Detail Author Start: 11-06-2024 End: 11-06-2024 Patient encounter procedure 11/06/2024 1:10 PM EDT Procedure Visit [facility] [address] [place] [id number] Yosi Atkins, DPM FACFAS [address] [place] [address] [facility] Start: 08-07-2024 End: 08-07-2024 Patient encounter procedure 08/07/2024 1:20 PM EDT Office Visit [facility] [address] [place] [phone] Yosi Atkins, DPM FACFAS [address] [facility] [address] Arrived [facility] Comment on above: Arrived Start: 01-25-2024 [facility] Start: 01-23-2024 [facility] Start: 01-23-2024 Consultation [facility] Start: 01-23-2024 Hospital admission [facility] Start: 04-06-2023 [facility] Start: 04-04-2023 Administration of prophylactic treatment [facility] Start: 04-02-2023 Referral to children's attendant [facility] Start: 04-02-2023 Hospital admission [facility] Start: 08-05-2022 CT Abdomen and Pelvi s WO contrast [facility] Start: 08-05-2022 CT of abdomen and pe lvis without contrast CT abdomen pelvis wo con [facility] Start: 11-19-2019 Creatinine monitoring Creatinine mon [place], [place] Start: 11-19-2019 Potassium monitoring Potassium monit [place], [place] Start: 11-05-2019 Creatinine monitoring Creatinine [place] Start: 11-05-2019 Potassium monitoring Potassium monit [place] Start: 12-04-2018 End: 12-04-2018 Office Visit 12/04/2018 Office Visit Neurosurgery Lenny Croral MD [address] [facility], [address] [address] [phone] [facility] Start: 11-30-2018 End: 11-30-2018 Office Visit 11/30/2018 Office Visit Neurosurgery Lenny Corral MD [address] [facility], [address] [place] [address] [phone] [facility] Start: 11-23-2018 End: 11-23-2018 Office Visit 11/23/2018 Office Visit Neurosurgery Lenny Corral MD [address] [facility], [address] [place] [address] [phone] [facility] Start: 11-13-2018 Annual Wellness Visi t (AWV) Annual Wellness Visit (AWV) [place] Start: 10-21-2018 Influenza vaccination Flu vaccine (# 1) [place] Start: 2001 DEXA (modify frequen cy per FRAX score) DEXA (modify frequency per FRAX score) [place] Start: 2001 Pneumococcal 65+ yea rs Vaccine (1 of 2 - PCV13) Pneumococcal 65+ years Vaccine (1 of 2 - PCV13) [place] Start: 1986 Shingles Vaccine (1 of 2) Shingles Vaccine (1 of 2) [place] Start: 11-13-1955 DTaP/Tdap/Td vaccine (1 - Tdap) DTaP/Tdap/Td vaccine (1 - Tdap) [place] Start: 1946 Lipid screen Lipid screen [place], [place] CT Cervical spine WO contrast [facility] Culture Blood #1 Culture Blood # 1 Microbiology STAT 11/15/2018 4:37 PM EDT [place] Culture Blood #2 Culture Blood # 2 Microbiology STAT 11/15/2018 4:37 PM EDT [place] End: 11-05-2018 EKG 12 Lead EKG 12 Lead ECG Routine One Time for 1 Occurrences starting 11/05/2018 until 11/05/2018 [place] Comment on above: One Time for 1 Occur rences starting 11/05/2018 until 11/05/2018 Incentive spirometry Incentive s pirometry Respiratory Care Routine Every 2hr while awake until discontinued starting 11/15/2018 [place] Comment on above: Every 2hr while awak e until discontinued starting 11/15/2018 Initiate Oxygen Ther apy Protocol Initiate Oxygen Therapy Protocol Respiratory Care Routine Daily until discontinued starting 11/15/2018 [place] Comment on above: Daily until disconti nued starting 11/15/2018 Nonrebreather mask oxygen Nonrebreather mask oxygen Respiratory Care Routine As directed - RT (PRN) until discontinued starting 11/05/2018 [place] Comment on above: As directed - RT (GA N) until discontinued starting 11/05/2018 Patient Education [facility] Work Phone: Patient referral [facility] Work Phone: End: 11-15-2018 Speech and language therapy regime Speech language pathology evaluation COMMUNICATIONS TOWER TECHNICIAN Routine One Time for 1 Occurrences starting 11/15/2018 until 11/15/2018 [facility] [place] Comment on above: One Time for 1 Occur rences starting 11/15/2018 until 11/15/2018 End: 11-04-2018 Urine Reflex to Culture Urine Reflex to Culture Lab STAT One Time for 1 Occurrences starting 11/04/2018 until 11/04/2018 [facility] [place] Comment on above: One Time for 1 Occur rences starting 11/04/2018 until 11/04/2018 XR Cervical spine 2 Views [facility] XR Cervical spine Vi ews W flexion and W extension [facility] Immunizations Immunization Date Immunization Notes Care Provider Yuri romero 12-20-2021 influenza virus vaccine, unspecified formulation MIKAYLA ABHISHEK [facility] 11-30-2021 influenza virus vaccine, unspecified formulation MD Mami Daniels Work Phone: [facility] 12-21-2020 influenza virus vaccine, unspecified formulation MIKAYLA ABHISHEK [facility] 01-09-2019 influenza virus vaccine, unspecified formulation MIKAYLA ABHISHEK [facility] 11-29-2017 influenza virus vaccine, unspecified formulation MIKAYLA ABHISHEK [facility] 01-02-2017 influenza virus vaccine, unspecified formulation MIKAYLA ABHISHEK [facility] 12-06-2016 influenza virus vaccine, unspecified formulation MIKAYLA ABHISHEK [facility] 12-11-2014 influenza virus vaccine, unspecified formulation MIKAYLA WEISS [facility] Neeraj NEGATED: Highlighted row has not occurred!05-03-2023 influenza virus vaccine, unspecified formulation Turner DOSS [facility] [place] Payers Date Payer Category Payer Self-pay [id number] 2021 Unknown [id number] 2021 Other GENERIC OTHER [id number] 2018 Medicare MEDICARE MEDICAR E PART A AND B xxxxxxxxxxx 2018-Present [phone] [address] [place] [address] xxxxxxxxxxx [id number] 2014 Medicare [id number] 2014 Medicare MEDICARE MEDICAR E PART A AND B xxxxxxxxxx 2014-Present [phone] [address] [place] [address] xxxxxxxxxx [id number] 2014 Unknown [id number] 2014 Unknown 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 [address] xxxxxxxxxxxx 2014-Present [phone] [address] [place] [address] xxxxxxxxxxxx .[id number] 2001 Medicare MEDICARE [id number] 1959 Medicare [id number] 1959 Self-pay [id number] 1959 Unknown [id number] 1936 Unknown [id number] 2.16840.1.795724.3.579.2.647 1936 Unknown [id number] 2.16.840.1.472176.3.579.2.182 1936 Unknown [id number] 2.16.840.1.687742.3.579.2.182 1936 Unknown [id number] 2.16840.1.802810.3.579.2.182 1936 Unknown [id number] 2.16.840.1.625162.3.579.2.182 1936 Unknown [id number] 2.16.840.1.045133.3.579.2.593 1936 Unknown [id number] 2.16.840.1.397326.3.579.2.593 1936 Unknown [id number] 2.16.840.1.399019.3.579.2.593 1936 Unknown [id number] 2.16.840.1.847769.3.579.2.593 1936 Unknown [id number] 2.16.840.1.864363.3.579.2.593 1936 Unknown [id number] 2.16.840.1.839850.3.579.2.593 1936 Unknown [id number] 2.16.840.1.720918.3.579.2.593 1936 Unknown [id number] 2.16.840.1.494796.3.579.2.593 1936 Unknown [id number] 2.16.840.1.392195.3.579.2.593 1936 Unknown [id number] 2.16.840.1.642982.3.579.2.593 1936 Unknown [id number] 2.840.1.922110.3.579.2.727 1936 Unknown [id number] 2.840.1.720867.3.579.2.727 1936 Unknown [id number] 2.840.1.504486.3.579.2.727 1936 Unknown [id number] 2.840.1.062813.3.579.2.727 1936 Unknown [id number] 2.840.1.566414.3.579.2.727 1936 Unknown [id number] 2.840.1.604748.3.579.2.125 9 1936 Unknown [id number] 2.16.840.1.499742.3.579.2.125 9 Unknown Unknown [id number] 2.16.840.1.159369.3.579.2.531 Unknown [id number] 2.16.840.1.327501.3.579.2.531 Unknown [id number] 2.16.840.1.358865.3.579.2.531 Unknown [id number] 2.16.840.1.580322.3.579.2.531 Unknown [id number] 2.16.840.1.566434.3.579.2.531 Unknown [id number] 2.16.840.1.085486.3.579.2.531 Social History Date Type Detail Facility Start: 11-04-2018 End: 07-24-2024 Tobacco smoking status NHIS Never smoker [facility] Start: 11-04-2018 End: 07-24-2024 Alcohol intake Not Currently [employer] Start: 1935 [facility]igned [facility] [place] Tobacco smoking status No Smoking Status Entered [facility] Start: 1935 Sex Assigned At Female F [facility] Tobacco smoking status Never [facility] Start: 03-02-2024 End: 05-08-2024 Sex Female (finding) [facility] Tobacco smoking status INIS Tobacco smoking consumption unknown [facility] Start: 07-24-2024 Tobacco use and exposure Smokeless tobacco non-user [facility] Start: 07-24-2024 History of Social function [facility] Medical Equipment Procedure Code Equipment Code Equipment Origin al Text Equipment Identifier Dates Graft Canc Chip 30cc 1.6lw99ar - [id number] Start: 11-13-2018 Graft Canc Chip 1.4iz35ry 15cc - [id number] Start: 11-13-2018 Sys Fix Reline 0 x Conn 40 50mm 5.5lp Adj [id number] Start: 11-13-2018 Jose Armando-Graft Infuse Kt Med [id number] Start: 11-13-2018 Impl Spine Cage Kamila Crv [id number] 8deg [id number] Start: 11-13-2018 Impl Spine Cage Kamila Crv [id number] 8deg [id number] Start: 11-13-2018 Screw Polyaxial Reline [...] Avilez 04-06-2023 Functional status Patient at Baseline [facility] Work Phone: 12-22-2022 Functional Status N/A [facility] Mental Status Date Assessment Result Facility 04-06-2023 Cognitive function Cognitive Sta tus Patient at Baseline [facility] Work Phone: Clinical Notes 04-04-2022 to 08-07-2024 Yosi Atkins DPM FACFAS - 08/07/2024 1:20 PM EDTMshobha Atkins DPM FACROGELIO - 07/24/2024 1:20 PM EDT Note Date & Type Note Facility 08-07-2024 History of Present illness Narrative Images from the original note were not included. Patient: Hiram Madrid : 1935 PCP: Mami Daniels MD SUBJECTIVE This is a 88 y.o. female that presents today for follow up a nail avulsion /incision and drainage of abscess left . Patient is doing well they deny fever chills nausea vomiting. They deny any pain they have been compliant with her postoperative care they have been soaking the nail as directed and applying topical antibiotics. This patient presents today chief complaint of painful elongated nails digits 1 through 10. They cause marked limitation in ambulation due to pain and pressure from shoe gear. Allergies: Allergies Allergen Reactions Atorvastatin Hives Ibuprofen GI intolerance and Unknown Wound Dressing Adhesive Prednisone Hives and Rash Past Medical History: Active Ambulatory Problems Diagnosis Date Noted No Active Ambulatory Problems Resolved Ambulatory Problems Diagnosis Date Noted No Resolved Ambulatory Problems Past Medical History: Diagnosis Date Hypertension Medications: Current Outpatient Medications: amLODIPine (Norvasc) 5 MG tablet, Take 5 mg by mouth Daily, Disp: , Rfl: carvedilol (Coreg) 25 MG tablet, TAKE 1 TABLET BY MOUTH TWICE A DAY WITH FOOD FOR 90 DAYS, Disp: , Rfl: citalopram (CeleXA) 20 MG tablet, Take 20 mg by mouth in the morning., Disp: , Rfl: irbesartan (Avapro) 300 MG tablet, TAKE 1 TABLET BY MOUTH EVERY DAY FOR 90 DAYS, Disp: , Rfl: KLOR-CON 20 MEQ ER tablet, TAKE 1 TABLET BY MOUTH THREE TIMES DAILY for 90 days, Disp: , Rfl: levothyroxine (Synthroid, Levoxyl) 88 MCG tablet, TAKE 1 TABLET BY MOUTH EVERY DAY IN THE MORNING ON AN EMPTY STOMACH, Disp: , Rfl: magnesium oxide (Mag-Ox) 400 MG tablet, Take 1 tablet by mouth 3 (three) times a day as needed, Disp: , Rfl: pravastatin (Pravachol) 80 MG tablet, Take 80 mg by mouth Daily, Disp: , Rfl: ROS: Constitutional: Denies fever, chills, nausea, vomiting GI: Denies abdominal pain, cramping, loose stool, gastric ulcers Musculoskeletal: Denies low back pain, knee pain, systemic arthritis Neurologic: Denies burning, tingling, transient paralysis OBJECTIVE Physical examination: DERM: Positive hair growth to b/l feet with good skin turgor noted. Nail avulsion site is healing well no signs of infection no drainage no malodor. Mild fibrotic tissue noted within the nail fold. No ascending cellulitis or lymphangitis noted. Nails 1 through 10 are markedly thickened elongated yellow and crumbly with subungual debris and painful to palpation [id number] on the right [id number] on the left VASC: Palpable pedal pulsed b/l with warm to cool tibia to toes b/l NEURO: Gross sensation intact digits 1-10 and b/l feeT MUSCULOSKELETAL: Muscle strength is +5 over 5 all intrinsic and extrinsic muscles tested ASSESSMENT 1. Onychocryptosis 2. Abscess, toe, left 3. Pain in left toe(s) PLAN Patient may discontinue soaking the nail. They may discontinue topical antibiotics follow up p.r.n. The patient was educated on proper foot care as well as the etiology of onychomycosis. I educated the patient on proper shoe gear as well. Today the nails were debrided both in length and thickness 1 through 10 Yosi Atkins DPM FACFAS documented in this encounter [facility] 07-24-2024 History of Present illness Narrative Images from the original note were not included. Patient: Hiram Madrid : 1935 PCP: Mami Daniels MD SUBJECTIVE This is a 88 y.o. female presents today with a chief complaint of a painful ingrown toenail with associated soft tissue abscess left foot. The state the pain has been present for several weeks and has progressively worsened. They have attempted trimming the nail back to no avail. They have noticed erythema and drainage coming from the affected border of the nail. They have attempted soaking the nail and topical antibiotics to no avail. The patient rates the pain a scale from 1-10 as a 8 with 10 being the worst pain of their lives. Allergies: Allergies Allergen Reactions Atorvastatin Hives Ibuprofen GI intolerance and Unknown Wound Dressing Adhesive Prednisone Hives and Rash Past Medical History: Active Ambulatory Problems Diagnosis Date Noted No Active Ambulatory Problems Resolved Ambulatory Problems Diagnosis Date Noted No Resolved Ambulatory Problems Past Medical History: Diagnosis Date Hypertension ([facility]) Medications: Current Outpatient Medications: amLODIPine (Norvasc) 5 MG tablet, Take 5 mg by mouth Daily, Disp: , Rfl: carvedilol (Coreg) 25 MG tablet, TAKE 1 TABLET BY MOUTH TWICE A DAY WITH FOOD FOR 90 DAYS, Disp: , Rfl: citalopram (CeleXA) 20 MG tablet, Take 20 mg by mouth in the morning., Disp: , Rfl: irbesartan (Avapro) 300 MG tablet, TAKE 1 TABLET BY MOUTH EVERY DAY FOR 90 DAYS, Disp: , Rfl: magnesium oxide (Mag-Ox) 400 MG tablet, Take 1 tablet by mouth 3 (three) times a day as needed, Disp: , Rfl: KLOR-CON 20 MEQ ER tablet, TAKE 1 TABLET BY MOUTH THREE TIMES DAILY for 90 days, Disp: , Rfl: levothyroxine (Synthroid, Levoxyl) 88 MCG tablet, TAKE 1 TABLET BY MOUTH EVERY DAY IN THE MORNING ON AN EMPTY STOMACH, Disp: , Rfl: pravastatin (Pravachol) 80 MG tablet, Take 80 mg by mouth Daily, Disp: , Rfl: Review of systems: Constitutional: Denies fever, chills, nausea, vomiting GI: Denies abdominal pain, cramping, loose stool, gastric ulcers Musculoskeletal: Denies low back pain, knee pain, systemic arthritis Neurologic: Denies burning, tingling, transient paralysis OBJECTIVE Physical Examination: DERM: Positive hair growth to b/l feet with good skin turgor noted. Negative openings in skin. The left great toe is incurvated and painful at the nail border. There is significant erythema and drainage with abscess formation noted. Pain on direct palpation of the incurvated border. Localized erythema circumferentially around the digit. There is no ascending cellulitis or lymphangitis noted. VASC: DP /PT were palpable bilateral. Capillary refill time < 3 seconds Digits 1-5 bilateral NEURO: [place] Zechariah 5.07 monofilament was intact B/L. Vibratory sensation was intact B/L Musculoskeletal: Muscle strength was +5 over 5 all intrinsic and extrinsic muscles tested. Radiographs: AP/MO/LAT: ASSESSMENT 1. Onychocryptosis 2. Abscess, toe, left 3. Pain in left toe(s) PLAN I Recommended incision and drainage of the infection of the digit. Consent forms were signed for the procedure today. The digit was anesthetized with 3 cc of 2% lidocaine plain. The digit was prepped and draped in the usual sterile manner. The offending nail border was freed proximally and at the nail bed. The nail was then split and removed in toto. The abscess was drained and copiously lavaged with normal sterile saline. Dressings consisted of Silvadene 4x4s and Coban. The patient was instructed to change the dressing daily. JULES Dupree documented in this encounter [facility] 04-30-2024 Radiology Diagnostic study note [facility] [place] [address] CT Scan Report Signed Patient: Hiram Madrid MR#: [id number] : 1935 Acct:[id number] Age/Sex: 88 / F ADM Date: Loc: CT Room: Type: [facility] Attending Dr: Lg Fu DO Copies to: Lg Fu DO~ Ordering Provider: Lg Fu DO Date of Service: 04/30/24 CT/CT cervical spine wo con: S12.9XXA - Fracture of neck, unspecified, initial encounter ([id number]) XR/XR cerv spine AP/LAT/FLX/EXT: S12.9XXA - Fracture of neck, unspecified, initial encounter CT CERVICAL SPINE WITHOUT CONTRAST WITH 3D RECONSTRUCTIONS 4 VIEWS OF THE CERVICAL SPINE: CLINICAL HISTORY: Fracture of cervical vertebral COMPARISON: CT 01/22/2024 TECHNIQUE: Spiral axial unenhanced images were obtained through the cervical spine. Sagittal, coronal and 3D volume-rendered reconstructions were also reviewed. This CT exam was performed using one or more following dose reductiontechniques: Automated exposure control, adjustment of the mA and/or kV accordingto patient size, or use of iterative reconstruction technique. FINDINGS: Mild reversal normal cervical lordosis. Severe disc space narrowing C5-6. Moderate severe disc space narrowing C6-7. Moderate degenerative disc space narrowing C3-C5. Multilevel facet arthropathy. Multilevel discogenic complex formation and intervertebral spurring cause central canal and foraminal narrowing findings most pronounced C5-C6 on the right with moderate severe canal narrowing and moderate severe right neural foraminal narrowing. There is moderate left neural foraminal narrowing identified at C5-6.. There is severe left-sided neural from narrowing C3-C4. Otherwise moderate neural foraminal and Moderate central canal identified elsewhere There is redemonstration of the well-corticated lucency involving the anterior inferior endplate of C5. No fracture or malalignment identified elsewhere within the cervical spine. No prevertebral soft tissue swelling. Carotid vascular calculations noted. X-rays of the cervical spine demonstrate reversal normal lordosis. There is minimal anterolisthesis C3-C4 1 mm. Multilevel predominantly left-sided facet arthropathy. On flexion extension imaging no definite movement of the fracture fragments or pathologic motion on flexion and extension imaging CT/CT cervical spine wo con IMPRESSION: Healing fracture involving the anterior inferior endplate of C5. Moderate severe degenerative changes notably C5-C6 on the right. Impression dictated by: Chris Munguia M.D.04/30/2024 3:03 PM Dictation Location: [place] [address] Transcribed By: DORETHA 04/30/24 1506 Dictated By: Chris Munguia MD 04/30/24 1454 Signed By: 04/30/24 1503 [facility] Work Phone: 03-06-2024 Evaluation note Diagnosis Onset Date Resolution Cervical spine fracture acute March 06 11:19am Cervical spine fracture acute April 17 1:02pm [facility] Work Phone: 1(549) 265-108001-15-2025 Evaluation note* Diagnosis Onset Date Resolution Status Admit Date Cervical spine fracture acute J anuary 2024 11:19am Cervical spine fracture acute F ebruary 2024 1:02pm Cervical spine fracture acute M arch 2024 3:15pm [facility] Work Phone: 1(932) 486-976112-04-2024 Evaluation note* Diagnosis Onset Date Resolution Status Admit Date SHAN (acute kidney injury) inactive January 24, 2024 10:11am C5 vertebral fracture inactive Jan 10:11am Fall as cause of accidental injury at home as place of occurrence inactive January 23 10:11am Hypertensive urgency inactive Dece 2023 10:11am Leukocytosis inactive January 10:11am [facility] Work Phone: 1(794) 457-582712-04-2024 Evaluation note* Diagnosis Onset Date Resolution Status Admit Date SHAN (acute kidney injury) inactive January 24, 2024 10:11am C5 vertebral fracture inactive Jan 10:11am Fall as cause of accidental injury at home as place of occurrence inactive January 23 10:11am Hypertensive urgency inactive Dece 2023 10:11am Leukocytosis inactive January 10:11am Cervical spine fracture acute J anuary 2024 11:19am [facility] Work Phone: 1(116) 605-948403-13-2024 NoteChief Complaint consultation for skin lesion HPI [...] plan excisional biopsy under local anesthesia at [facility], for definitive diagnosis and treatment, informed [...] mg= 1 tab(s), Oral, Daily Potassium Chloride (Mdy-Vezt-Rho 10), 20 mEq, Oral, TID pravastatin 80 [...] 12/06/2016 Recorded influenza virus vaccine, inactivated 12/11/2014 [facility]:Result Comment: Electronically Signed By: ROMARIO DUMONT, Turner Connor\Date and Time Signed: 05/03/23 20:14 [id number] Discharge summary Author Turner Frank [facility] April 06, 2023 12:22pm Note Date/Time April 06, 2023 12:22pm [facility] [address] [place] [address] Discharge Summary Signed Patient: Hiram Madrid MR#: [id number] : 1935 Acct:[id number] Age/Sex: 87 / F Adm Date: 4 Loc: Room: [address] [place] [address]: Turner Frank DO Copies to: [...] is a 89-year-old who presented here to [facility] as a transfer on 04/02/2023. She [...] amlodipine daily. Her home med list reports ccesai68 mg but currently shows me a 5 [...] Plan Discharge Plan Patient Disposition: Home Health [facility] Activity: Ambulate as Tolerated Diet: Low-Sodium Additional [...] signed by Turner Frank DO> 04/06/23 1222 [facility] Work Phone: 1(801) 953-646002-14-2024 Progress note Author Turner Frank [facility] April 05, 2023 8:14pm Note Date/Time April 05, 2023 8:14pm [facility] [address] [place] [address] Hospitalist Progress Note Signed Patient: Hiram Madrid MR#: [id number] : 1935 Acct:[id number] Age/Sex: 87 / F Adm Date: 4 Loc: Room: [address] [place] [address] Type: ADM IN Attending Dr: Turner Frank [...] Meq Kcl IV 04/01/24 20:29 0 mls/hr .[id number] [facility] Infusion Levothyroxine Sodium 88 mcg 04/03/23 [...] <Electronically signed by Turner Frank DO> 04/05/232013 [facility] Work Phone: 1(545) 638-698502-14-2024 Progress note Author Gaudencio Romero [facility] April 05, 2023 11:16am Note Date/Time April 05, 2023 11:16am [facility] [address] [place] [address] Nephrology Progress Note Signed Patient: Hiram Madrid MR#: [id number] : 1935 Acct:[id number] Age/Sex: 87 / F Adm Date: 4 Loc: Room: [address] [place] [address] Type: ADM IN Attending Dr: Turner Frank DO Copies to: ~ Date of Service: 04/05/2023 Subjective Subjective Narrative: Ms. Madrid is an 87-year-old white female was transferred from [facility] on 04/02/23 for hyponatremia. Patient did complain for nausea with no vomiting or diarrhea. She had back pain and other vague symptoms that prompted her to go [facility]. ER lab showed sodium 116, potassium 2.3 and magnesium 1.6. Otherlabs unremarkable including creatinine 0.7 mg/dL. EKG showed normal sinus rhythm at 86/min with right bundle branch block. Patient was given 2 g magnesium in the emergency room and subsequently was transferred to [facility] for further management. On arrival, patient was placed on gentle hydration with normal saline with 20 mEq potassium chloride at rate of75 cc/h. Review of his records showed that the patient has a chronic hyponatremia for almost a year however she never seen children's attendant. Sodium has been running in the 120s. [...] [facility] [...] Tablet) 10 mg PO DAILY [facility] Stop: 04/02/24 08:59 Last Admin: 04/05/23 08:25 Dose: 10 mg Docusate Sodium (Docusate 100 Mg Capsule) 200 mg PO BID PRN PRN Reason: Constipation Stop: 04/01/24 19:57 Docusate Sodium (Docusate 100 Mg Capsule) 200 mg PO BID [facility] Stop: 04/02/24 08:59 Last Admin: 04/05/23 08:25 Dose: 200 mg Hydralazine HCl (Hydralazine 20 Mg/Ml Vial) 10 mg IV-PUSH Q4H PRN PRN Reason: if SBP > 185 Stop: 04/01/24 19:57 Potassium Chloride/Sodium Chloride (0.9 % Nacl-20 Meq Kcl) 1,000 mls @ 75 mls/hr IV .[id number] [facility] Stop: 04/01/24 20:29 Last Infusion: 04/04/23 08:45 Dose: 0 mls/hr Levothyroxine Sodium (Levothyroxine 88 Mcg Tablet) 88 mcg PO DAILY@0630 [facility] Stop: 04/02/24 06:29 Last Admin: 04/05/23 05:52 Dose: 88 mcg Lorazepam (Lorazepam 2 Mg/Ml Vial) 0.25 mg IV-PUSH Q4H PRN PRN Reason: Anxiety Stop: 10/01/23 11:38 Losartan Potassium (Losartan 50 Mg Tablet) 100 mg PO DAILY [facility] Stop: 04/02/24 08:59 Last Admin: 04/05/23 08:26 Dose: 100 mg Pantoprazole Sodium (Pantoprazole 40 Mg Tablet.Dr) 40 mg PO DAILY.629 [facility] Stop: 04/04/24 08:59 Last Admin: 04/05/23 08:25 [...] <Electronically signed by MD Gaudencio Romero> 04/05/[address] [facility] Work Phone: 1(296) 857-703202-13-2024 Progress note Author Gaudencio Romero [facility] April 04, 2023 2:06pm Note Date/Time April 04, 2023 2:00pm [facility] [address] [place] [address] Nephrology Progress Note Signed Patient: Hiram Madrid MR#: [id number] : 1935 Acct:[id number] Age/Sex: 87 / F Adm Date: 4 Loc: Room: [address] [place] [address] Type: ADM IN Attending Dr: Turner Frank DO Copies to: ~ Date of Service: 04/04/2023 Subjective Subjective Narrative: Ms. Madrid is an 87-year-old white female was transferred from [facility] on 04/02/23 for hyponatremia. Patient did complain for nausea with no vomiting or diarrhea. She had back pain and other vague symptoms that prompted her to go [facility]. ER lab showed sodium 116, potassium 2.3 and magnesium 1.6. Otherlabs unremarkable including creatinine 0.7 mg/dL. EKG showed normal sinus rhythm at 86/min with right bundle branch block. Patient was given 2 g magnesium in the emergency room and subsequently was transferred to [facility] for further management. On arrival, patient was placed on gentle hydration with normal saline with 20 mEq potassium chloride at rate of75 cc/h. Review of his records showed that the patient has a chronic hyponatremia for almost a year however she never seen children's attendant. Sodium has been running in the 120s. [...] / 250 Balance 100 / 100 2024 674 / 674 Weight 63 kg 61.3 kg 62.5 kg Meds and Allergies Meds: Active Medications Acetaminophen (Acetaminophen 325 Mg Tablet) 650 mg PO Q4H PRN PRN Reason: Pain Scale 1 - 5 Stop: 04/01/24 19:57 Amlodipine Besylate (Amlodipine 10 Mg Tablet) 10 mg PO DAILY [facility] Stop: 04/02/24 08:59 Last Admin: 04/04/23 10:06 [...] Kcl) 1,000 mls @ 75 mls/hr IV .[id number] [facility] Stop: 04/01/24 20:29 Last Infusion: 04/04/23 08:45 Dose: 0 mls/hr Levothyroxine Sodium (Levothyroxine 88 Mcg Tablet) 88 mcg PO DAILY@0630 [facility] Stop: 04/02/24 06:29 Last Admin: 04/04/23 06:26 Dose: 88 mcg Lorazepam (Lorazepam 2 Mg/Ml Vial) 0.25 mg IV-PUSH Q4H PRN PRN Reason: Anxiety Stop: 10/01/23 11:38 Losartan Potassium (Losartan 50 Mg Tablet) 100 mg PO DAILY [facility] Stop: 04/02/24 08:59 Last Admin: 04/04/23 10:06 Dose: 100 mg Pantoprazole Sodium (Pantoprazole 40 Mg Tablet.Dr) 40 mg PO DAILY.0630 [facility] Stop: 04/04/24 08:59 Pravastatin Sodium (Pravastatin 40 Mg Tablet) 80 mg PO DAILY [facility] Stop: 04/02/24 08:59 Last Admin: 04/04/23 10:06 [...] <Electronically signed by MD Gaudencio Romero> 04/04/[address] [facility] Work Phone: 1([phone]) 381-395002-13-2024 Progress note Author Turner Frank [facility] April 04, 2023 1:09pm Note Date/Time April 04, 2023 1:09pm [facility] [address] [place] [address] Hospitalist Progress Note Signed Patient: Hiram Madrid MR#: [id number] : 1935 Acct:[id number] Age/Sex: 87 / F Adm Date: 4 Loc: Room: [address] [place] [address] Type: ADM IN Attending Dr: Turner Frank [...] Meq Kcl IV 04/01/24 20:29 0 mls/hr .[id number] [facility] Levothyroxine Sodium 88 mcg 04/03/23 [...] <Electronically signed by Turner Frank DO> 04/04/[address] [facility] Work Phone: 1(372) 486-990902-12-2024 Progress note Author Turner Frank [facility] April 03, 2023 7:29pm Note Date/Time April 03, 2023 7:29pm [facility] [address] [place] [address] Hospitalist Progress Note Signed Patient: Hiram Madrid MR#: [id number] : 1935 Acct:[id number] Age/Sex: 87 / F Adm Date: 4 Loc: 4 Room: [id number] Type: ADM IN Attending Dr: Turner Frank [...] Meq Kcl IV 04/01/24 20:29 75 mls/hr .[id number] [facility] Administration Levothyroxine Sodium 88 mcg 04/03/23 [...] <Electronically signed by Turner Frank DO> 04/03/2319[address] [facility] Work Phone: 1(419) 453-325402-12-2024 Consult note Author Gaudencio Romero [facility] April 03, 2023 2:07pm Note Date/Time April 03, 2023 2:07pm [facility] [address] [place] [address] Nephrology Consult Note Signed Patient: Hiram Madrid MR#: [id number] : 1935 Acct:[id number] Age/Sex: 87 / F Adm Date: 4 Loc: Room: [address] [place] [address] Type: ADM IN Attending Dr: Turner Frank DO Copies to: MD Gaudencio Pickering MD Michael R. Frings, DO~ Providers Consult Date: 04/03/23 Requesting Provider: Turner Frank DO Primary Care Provider: Mami Daniels MD [facility] Reason for Consult: Hyponatremia, sodium 117 on admission History of Present Illness: Ms. Madrid is an 87-year-old white female was transferred from [facility] on 04/02/23 for hyponatremia. Patient did complain for nausea with no vomiting or diarrhea. She had back pain and other vague symptoms that prompted her to go [facility]. ER lab showed sodium 116, potassium 2.3 and magnesium 1.6. Otherlabs unremarkable including creatinine 0.7 mg/dL. EKG showed normal sinus rhythm at 86/min with right bundle branch block. Patient was given 2 g magnesium in the emergency room and subsequently was transferred to [facility] for further management. On arrival, patient was placed on gentle hydration with normal saline with 20 mEq potassium chloride at rate of75 cc/h. Review of his records showed that the patient has a chronic hyponatremia for almost a year however she never seen children's attendant. Sodium has been running in the 120s. [...] has no ascites or edema. Lab at [facility] showed TSH 5.6, urine osmolality 298 and urine sodium 79 mmol/L Review of her medications showed that the patient was on amlodipine, losartan, potassium supplement and hydrochlorothiazide 25 mg daily. She also takes magnesium oxide 400 mg twice a day. No SSRI. Review of Systems Review of Systems All other systems reviewed & are negative unless noted below or in HPI [facility] Medical History (Updated 04/03/23 @ 14:00 by [...] Surgical History (Updated 02/01/23 @ 14:30 by [employer]) History of tonsillectomy Problem List clean-up per [...] Tablet) 10 mg PO DAILY [facility] Stop: 04/02/24 08:59 Last Admin: 04/03/23 08:58 Dose: 10 mg Docusate Sodium (Docusate 100 Mg Capsule) 200 mg PO BID PRN PRN Reason: Constipation Stop: 04/01/24 19:57 Docusate Sodium (Docusate 100 Mg Capsule) 200 mg PO BID [facility] Stop: 04/02/24 08:59 Last Admin: 04/03/23 08:58 Dose: Not Given Hydralazine HCl (Hydralazine 20 Mg/Ml Vial) 10 mg IV-PUSH Q4H PRN PRN Reason: if SBP > 185 Stop: 04/01/24 19:57 Potassium Chloride/Sodium Chloride (0.9 % Nacl-20 Meq Kcl) 1,000 mls @ 75 mls/hr IV .[id number] [facility] Stop: 04/01/24 20:29 Last Admin: 04/02/23 21:56 Dose: 75 mls/hr Levothyroxine Sodium (Levothyroxine 88 Mcg Tablet) 88 mcg PO DAILY@0630 [facility] Stop: 04/02/24 06:29 Last Admin: 04/03/23 05:54 Dose: 88 mcg Losartan Potassium (Losartan 50 Mg Tablet) 100 mg PO DAILY [facility] Stop: 04/02/24 08:59 Last Admin: 04/03/23 08:58 Dose: 100 mg Pravastatin Sodium (Pravastatin 40 Mg Tablet) 80 mg PO DAILY [facility] Stop: 04/02/24 08:59 Last Admin: [...] 01:50 04:48 MCHC 35.8 H (32.0-35.0) g/dL [place] # (Auto) 1.1 H (0.0-0.8) x10E3/uL Sodium [...] 04/03/23 Range/Units 08:00 10:38 MCHC (32.0-35.0) g/dL [place] # (Auto) (0.0-0.8) x10E3/uL Sodium 118 L* [...] stay Documented By: Gaudencio Romero MD 04/03/23 9806 Signed By: <Electronically signed by MD Gaudencio Romero> 04/03/[address] [facility] Work Phone: 1(361) 909-105802-11-2024 History and physical note Author Natividad Gregory [facility] April 02, 2023 8:22pm Note Date/Time April 02, 2023 8:06pm [facility] [address] [place] [address] Hospitalist H&P Signed Patient: Hiram Madrid MR#: [id number] : 1935 Acct:[id number] Age/Sex: 87 / F Adm Date: 4 Loc: 4 Room: [address] [place] [address] Type: ADM IN Attending Dr: Lucy Lockhart MD Copies to: MD Lucy Pickering MD Ruta Semaskiene, MD~ HPI DATE OF EXAMINATION: 04/02/23 CHIEF COMPLAINT: Hyponatremia HISTORY OF PRESENT ILLNESS: 87 years old female was transferred from [facility] for hyponatremia. Itseems like the patient [...] days ago she has been admitted to [facility] and discharged. Since then she still [...] records in the computer system reviewed [facility] Medical History (Updated 04/02/23 @ 20:21 by [...] Surgical History (Updated 02/01/23 @ 14:30 by Snatch that Jerky Ga) History of tonsillectomy Problem List clean-up per request of Phys. EHR Cmte History of salpingo-oophorectomy Problem List clean-up per request of Phys. EHR Cmte Hx of cholecystectomy Problem List clean-up per request of Phys. EHR Cmte History of appendectomy Problem List clean-up per request of Phys. [facility] Family [facility] (Updated 07/29/14 @ 12:15 by [...] <Electronically signed by Natividad Gregory MD> 04/02/[address] [facility] Work Phone: 1(914) 143-643711-22-2023 NoteNoted 7 beat run of NSVT on 1 week holter monitor, along with SVT, PVCs Recommended to continue coreg 25 mg bid, will place 30 day monitor, and obtain treadmill cardiolite stress test for ischemic evaluation.[facility]11-22-2023 NotePt reports that she has had 5 syncopal episodes since this Summer- some while having a BM, and other episodes while just up and walking.[facility]11-22-2023 NoteWill monitor with routine echocardiogram annually unless pt has concerning symptomsUnChildren's Hospital of [facility]11-22-2023 NoteRecommended to continue ASA and pravastatinUnChildren's Hospital of [facility]11-22-2023 Note Hypertension is stable Reviewed B/P log and typically in the mornings her b/p with well controlled 120's/70-80, and in the evenings can be up to 140/80 Continue all meds and will add toprolUnChildren's Hospital of [facility] 01-11-2023 NoteContinue pravastatinUnChildren's Hospital of [facility]11-22-2023 NoteWill monitor with routine echocardiogram annually unless pt has concerning symptomsUnChildren's Hospital of [facility]11-22-2023 NoteWill monitor with routine echocardiogram annually unless pt has concerning symptomsUnChildren's Hospital of [facility]11-22-2023 NotePatient here for 3 mo follow up valve disorder and carotid artery stenosis. She has had a few episodes of syncope since last visit. She recently wore Holter monitor. Says Dr. Daniels wants to add metoprolol but she does not want to add another medication. Review of Systems Cardiovascular: Positive for syncope. Hematologic/Lymphatic: Bruises/bleeds easily. All other systems reviewed and are negative.[facility] 01-11-2023 NoteUTP CARDIOLOGY PROGRESS NOTE HPI: Hiram [...] called and was evaluated in ED at [facility]. Admits she has had a couple syncopal episodes in the bathroom while having a BM- last one was at [facility]. States she also has had a couple while just up and walking- normal Day to Day activity. Daughter states that pt is usually out for about 1 minute. Of note patient was direct admitted to the [facility] end of August for electrolyte imbalances low sodium, low potassium, and acute anemia. She was evaluated at [facility] in October for ABD pain/ [...] The patient states she was shopping in [facility] when she felt the need to [...] a colonoscopy approximately 5 years ago at [facility]. HPI - Altered Mental Status General Chief [...] was someone in the bathroom in the faith and she have to go back and [...] tablet 3 levothyroxine (Syn (more content not included)...[facility]11-02-2023 Hospital Discharge instructions Patient Education 12/22/2022 12:24:19 [...] transplant. Follow these instructions at home: Take vpkp-hio-taptkgl and prescription medicines only as told by [...] provider. Document Revised: 05/26/2020 Document Reviewed: 05/26/2020 [employer] Patient Education 2022 De Correspondent. Follow Up Care 09/06/2022 13:10:43 With:ABHISHEK NOONAN, MIKAYLA Pereira, URL Address: [address] [place] [address] [id number] When: Unknown Comments:6 mos w/ renal fxn (per PCP) [facility] 09-05-2023 NotePt message/ call that she is [...] needs to call for appointment Lesly Alaniz LEVER OPERATOR Division of Cardiology, [facility]- [phone] Pager- [phone] Email- [email or web address]08-25-2023 NoteStable and non pitting currentlyUnChildren's Hospital of [facility] 10-14-2022 NoteCurrently stable Pt to call for any recurrent syncope or concernsUnChildren's Hospital of Columbus08-25-2023 NoteMild on recent echo No concerning symptomsUnChildren's Hospital of [facility]08-25-2023 NoteContinue ASA and statinUnChildren's Hospital of Columbus08-25-2023 NoteHypertension is uncontrolled 160/75- admits this is where her b/p is at home Increase coreg to 25 mg bid, continue losartan 100 mg, hydrochlorothiazide 25 mg, and amlodipine 10 mgUnChildren's Hospital of Columbus08-25-2023 Note Continue pravastatinUnChildren's Hospital of Columbus08-25-2023 NoteNo concerning symptoms Will continue to monitor with echocardiogramUnChildren's Hospital of [facility] 10-14-2022 NoteNo concerning symptoms Will continue to monitor with echocardiogramUnChildren's Hospital of [facility] 10-14-2022 NotePatient here c/o LE edema. Says today they aren't as bad, but she states they're hard and sometimes painful. She has not had lab work since [facility] stay in July 2022. She denies chest pain, lightheadedness, and palpitations. Review of Systems Cardiovascular: Positive for dyspnea on exertion and leg swelling. Hematologic/Lymphatic: Bruises/bleeds easily. All other systems reviewed and are negative.[facility] 10-14-2022 NoteUTP CARDIOLOGY PROGRESS NOTE HPI: Hiram [...] note patient was direct admitted to the [facility] end of August for electrolyte imbalances [...] Stable and non pitting currently RTC 3-6 monthsTr[facility]02-13-[facility] Chief Complaint: [...] p.o. twice dominic (more content not included)... [facility] note No data available for this section [facility] Future Appointments Appointment Date:06/29/2023 09:30:00 AM Scheduled Provider:MIKAYLA WEISS PA-C Location:[facility] Appointment Type:URO Office Visit [facility] Evaluation noteNo assessment information available [facility] Work Phone: Evaluation note* Diagnosis Onset Date Resolution Status HTN (hypertension) acute Hyponatremia acute [facility] Work Phone: Evaluation note* Diagnosis Onychocryptosis- Primary Ingrowing nail Abscess, toe, left Pain in left toe(s) [facility] Diagnosis Abscess, toe, left- Primary Onychocryptosis Ingrowing nail Pain in left toe(s) Onychomycosis Dermatophytosis of nail Pain in right toe(s) [facility] this [facility] Discharge instructions No data available for this section [facility] Dis[facility] instructions Additional Instructions Take Naprosyn as prescribed for mild to moderate pain. Take Keflex as prescribed to prevent infection. Take Zofran as prescribed for nausea while taking oxycodone. Do not drive while taking oxycodone. Take Flomax daily as prescribed. Call the urologist listed below on Monday to schedule follow-up appointment. Return to emergency department for any fevers or chills or intractable nausea vomiting.[facility] Work Phone: Progress note No data available for this section [facility] Summary Purpose Family History No Family History Records Found Relationship Condition Age at Onset Recorded Date/T cullen father Unknown Not Specified Unknown Relationship Condition Age at Onset Recorded Date/T cullen father Unknown mother Unknown Advance Directives No Advanced Directives Records FoundDocuments on File Type Date Recorded Patient Outlet Manager Expl anation Advance Directives and Living Will Power of Security Control Assessor Latest Code Status on File Code Status Date Activated Date Inactivated Comments Full Code 11/05/2018 6:34 PM Full Code 11/04/2018 5:08 PM 11/05/2018 6:34 PM Documents on File Type Date Recorded Patient Outlet Manager Expl anation Advance Directives and Livin g Will Advance Directives and Livin g Will 11/06/2018 1:08 AM AD info sheets Power of Security Control Assessor Latest Code Status on File Code Status [...] sent through Care Everywhere. * Back Pain (Tamazight) documented in this encounter* Discharge Instr - [...] at most local grocery stores, pharmacies, and cloud[employer]IQ-stores. ? If you have any questions about [...] Contact Information Primary Emergency Contact: Andrea Madrid [facility] Mobile Relation: Spouse Secondary Emergency Contact: Townsend, Liliya Mobile Relation: Child Environmental Lead needed? No Past Surgical History: Past Surgical History: Procedure Laterality Date APPENDECTOMY BACK SURGERY CHOLECYSTECTOMY LUMBAR FUSION N/A 11/13/2018 PLIF L 3-4-5 DECOMPRESSION L3, L4 performed by Lenny Corral MD at [facility] OR [facility] Right Immunization History: There is no [...] Assisted Dressing Independent Toileting Independent Feeding Independent Coke Worker Independent Med Delivery whole Wound Care Documentation [...] select all that are sent with patient): {[facility] DME Belongings:[id number]} RN SIGNATURE: MANAGEMENT/SOCIAL WORK SECTION Inpatient Status Date: Patient was admitted to Inpatient Acute Rehab 11/15/18 Readmission Risk Assessment Score: Readmission Risk Risk of Unplanned Readmission: 12 Discharging to Facility/ Agency Name: [facility]an Sosa Address: Fax: Dialysis Facility (if applicable) Name: Address: Dialysis Schedule: Phone: Fax: Solder Technician/Snack Bar Cashier signature: ICIAN SECTION Prognosis: Good Condition at [...] Date: 11/20/2018 Patient Name: Hiram Madrid Account: [id number] : 1935 (83 y.o.) Room: [place] [address] Diagnosis: Impaired mobility and gait secondary to [...] L4 performed by Lenny Corral MD at 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 Cognition Comment: 6 7 7 6 6 Perception Status: Perception Overall Perceptual Status: [facility] Sensation Status: Sensation Overall Sensation Status: [facility] Vision and Hearing Status: Vision Vision: Impaired Vision Exceptions: Wears glasses for reading Hearing Hearing: Exceptions to [facility] Hearing Exceptions: Hard of hearing/hearing concerns, [...] Yarely Gordon - 11/20/2018 12:35 PM EDT [facility] MUSIC THERAPY Date: 11/20/2018 Patient Name: [...] 11:40am - 12:00pm SUBJECTIVE: I'd like some [employer] Pharm[employer] Corporationpel music. OBJECTIVE: [x] To Improve Mood [x] [...] 11/20/2018 9:59 AM EDT Occupational Therapy Facility/Department: [facility] Daily Treatment Note NAME: Hiram Madrid [...] Out 0940 Minutes 10 CARLA Martinez * Ovidio Schroederque Lloyd, BEEF SKINNER - 11/20/2018 9:55 AM EDT Occupational Therapy Facility/Department: [facility] Daily Treatment Note NAME: Hiram Madrid [...] device (slide rail) Walk: 6 - Modified [place] Walks at least 150 feet with an ambulatory device, orthosis or prosthesis OR requires extra amount of time OR there is concern for safety Distance Walked: 200' Wheel Chair: 0 - Activity Not Assessed/Does Not Occur Stairs: 6 - Modified [place] Safely goes up and down at least [...] from Dr. Ellis Holguin D.O., PM&R Attending [phone] [facility] * Khanh White LPN - 11/19/2018 6:00 [...] PLAN: Fever leukocytosis observe * Michelle Sharp OTR/L - 11/19/2018 2:05 PM EDT Occupational Therapy Facility/Department: [facility] Daily Treatment Note NAME: Hiram Madrid [...] In 1330 Time Out 1400 Minutes 30 YULISSA Langford * Mikayla Lindsey, CLASSIFIED AD CLERK - 11/19/2018 1:09 PM EDT Physical Therapy Rehab Treatment Note Facility/Department: [facility] Room: [place] [address] NAME: Hiram Madrid : 1935 (83 y.o.) [...] re education: 0 Therapeutic ex: 20 Mikayla Garcialeonardolonnie CLASSIFIED AD CLERK, 11/19/18 at 2:52 PM * Dulce Stevens, - 11/19/2018 11:20 AM EDT Progress Note Patient: Hiram Madrid Unit/Bed: R238/R238-01 Date of : 1935 Acct: [id number] Admitting Diagnosis: Impaired mobility [Z74.09] Spinal stenosis [...] and tentative discharge home tomorrow. Follows with banquet set up person in [place]. 11/18/18: called by event staff regarding tachycardia. Pt was unaware of [...] [place], CHF or arrhythmia. Follows with a banquet set up person from [place] for carotid artery disease and cardiac murmur. [...] to DC home and F/U with regular banquet set up person as outpatient Attending Supervising Physician's Attestation Statement The patient is a 83 y.o. female. I have performed a history and physical examination of the patient. I discussed the case with the physician butcher's assistant. I reviewed the patient's Past Medical [...] EDT Physical Therapy Rehab Treatment Note Facility/Department: [facility] Room: [place] [address] NAME: Hiram Madrid : 1935 (83 y.o.) [...] trainin Neuro re education:10 Therapeutic ex:15 Padmini Estrella, CLASSIFIED AD CLERK, 11/19/18 at 10:57 AM * Mikayla Lindsey CLASSIFIED AD CLERK - 11/19/2018 10:06 AM EDT Physical Therapy Rehab Treatment Note Facility/Department: [facility] Room: [place] [address] NAME: Hiram Madrid : 1935 (83 y.o.) [...] Neuromuscular Education Neuromuscular Comments: Pizano Initiated: other CLASSIFIED AD CLERK finished it: pt scored a 42/56. [...] education: 10 Therapeutic ex: 0 Mikayla Lindsey, CLASSIFIED AD CLERK, 11/19/18 at 11:59 AM * Khanh White LPN - 11/19/2018 9:15 AM EDT Assessment completed. Medicated with Percocet for 10/10 pain in lower back and left leg. Removed old drsg from lower back. Noted a scant amount of serosanguinous drainage. [place] intact. Sutures at lower part of incision intact. Cleanse incision with NS. Applied Neosporin oint to incision. Applied DSD. No back brace per Dr Corral. Call light in reach. Will continue to monitor. * Lenny Corral MD - 11/19/2018 8:23 AM EDT Patient: Hiram Madrid Unit/Bed: [place] [address] Date of : 1935 Acct: [id number] Admitting Diagnosis: Impaired mobility [Z74.09] Spinal stenosis of lumbosacral region [M48.07] Admit Date: 11/15/2018 Hospital Day: 4 Current Medications: Scheduled Meds: cephALEXin 500 mg Oral 3 times per day htnpkysu-rqvvknauvg-nmmwhbxft Topical BID enoxaparin 30 mg Subcutaneous Daily [...] woman from homewith spouse who presents to [facility] with the above deficits which impact [...] ms QTc Calculation (Bazett) 463 ms P Benton 58 degrees R Benton -11 degrees T Benton 5 degrees Xr Chest Standard (2 Vw) [...] from Dr. Ellis Holguin D.O., PM&R Attending [address] * Rachael Graf LPN - 11/18/2018 4:39 [...] and no guarding. Musculoskeletal: Back: Urine Culture [[id number]] Collected: 11/15/18 1905 Order Status: Completed Specimen: Urine, clean catch Updated: 11/17/18 0728 Urine Culture, Routine No growth 24 hours Narrative: ORDERED BY: MAMI COKER SOURCE: Urine Clean Catch COLLECTED: 11/15/18 19:05 ANTIBIOTICS AT DI.: RECEIVED : 11/15/18 19:05 Culture Blood #2 [[id number]] Collected: 11/15/18 1637 Order Status: Completed Specimen: Blood Updated: 11/16/181814 Culture, Blood 2 No Growth to date. Any change in status will be called. Narrative: ORDERED BY: MAMI COKER SOURCE: Blood COLLECTED: 11/15/18 16:37 ANTIBIOTICS AT DI.: RECEIVED : 11/15/18 16:42 Culture Blood #1 [[id number]] Collected: 11/15/18 1637 Order Status: Completed Specimen: Blood Updated: 11/16/181814 Blood Culture, Routine No Growth to date. [...] Unit/Bed: R238/R238-01 Date of : 1935 Acct: [id number] Admitting Diagnosis: Impaired mobility [Z74.09] Spinal stenosis [...] L4 performed by Lenny Corral MD at [facility] OR [facility] Right History reviewed. No pertinent family [...] on phone: None Gets together: None Attends amish service: None Active member of club or organization: None Attends meetings of clubs or organizations: None Relationship status: None Intimate partner violence: Fear of current or ex partner: None Emotionally abused: None Physically abused: None Forced sexual activity: None Other Topics Concern None Social History Narrative None Subjective/HPI: called by event staff regarding tachycardia. Pt was unaware of [...] woman from homewith spouse who presents to [facility] with the above deficits which impact [...] up labs. Blanca Holguin D.O., PM&R Attending [phone] [facility] * Dana Craig RN - 11/17/2018 5:45 PM EDT Monitor room called, said pt had about 18 sec run of svt up to 218; notified cardio. * Faye Summers PTA - 11/17/2018 4:07 PM EDT Physical Therapy Rehab Treatment Note Facility/Department: [facility] Room: R238/R238-01 NAME: Hiram Madrid : [...] previously scheduled minutes from AM. Faye Summers, CLASSIFIED AD CLERK, 11/17/18 at 4:07 PM * Rachael Graf [...] 11/17/2018 2:51 PM EDT Occupational Therapy Facility/Department: [facility] Daily Treatment Note NAME: Hiram Madrid [...] EDT Physical Therapy Rehab Treatment Note Facility/Department: [facility] Room: [place] [address] NAME: Hiram Madrid : 1935 (83 y.o.) [...] EDT Physical Therapy Rehab Treatment Note Facility/Department: [facility]: Hiram Madrid : 1935 (83 [...] training: Gait trainin Neuro re education:15 Therapeutic ex:Roberta Ibanez, 11/17/18 at 12:20 PM * Roselyn Schroeder, CARLA - 11/17/2018 8:43 AM EDT Occupational Therapy Facility/Department: [facility] Daily Treatment Note NAME: Hiram Madrid [...] at below status. ADL Equipment Provided: Sock aid;Tissue Coordinator Grooming: Independent UE Bathing: Setup LE Bathing: [...] woman from homewith spouse who presents to [facility] with the above deficits which impact [...] consult,check dopplers Blanca Holguin D.O., PM&R Attending [phone] [place] [address] * Jessica Irvin, OTR/Lloyd - 11/16/2018 4:14 PM EDT Occupational Therapy Facility/Department: [facility] Daily Treatment Note NAME: Hiram Madrid : 1935 Date of Service: 11/16/2018 Discharge Recommendations: Continue to assess pending progress OT Equipment Recommendations Other: Continue to assess Assessment Performance deficits / Impairments: Decreased functional mobility ;Decreased ADL status;Decreased strength;Decreased balance;Decreased endurance;Decreased high- level IADLs Assessment: Pt. is an 83 year old woman from home with spouse who presents to [facility] with the above deficits which impact [...] Pain: Yes Objective The patient completed the [facility] Mental Status (UMS) Examination on [...] Unit/Bed: R238/R238-01 Date of : 1935 Acct: [id number] Admitting Diagnosis: Impaired mobility [Z74.09] Spinal stenosis of lumbosacral region [M48.07] Admit Date: 11/15/2018 Hospital Day: 1 Current Medications: Scheduled Meds: [START ON 11/17/2018] enoxaparin 40 mg Subcutaneous Daily lfeuajqi-poheoxlmqe-qwxyuktui Topical BID docusate sodium 100 mg Oral [...] [place], CHF or arrhythmia. Follows with a banquet set up person from [place] for carotid artery disease and cardiac murmur. [...] L4 performed by Lenny Corral MD at [facility] OR [facility] Right Social History Social History Socioeconomic [...] on phone: None Gets together: None Attends amish service: None Active member of club or [...] 100 mg 100 mg Oral BID Shyla Vizcaino APRN - MK famotidine (PEPCID) tablet [...] EDT Physical Therapy Rehab Treatment Note Facility/Department: [facility] Room: [place] [address] NAME: Hiram Madrid : 1935 (83 y.o.) [...] education: 0 Therapeutic ex: 23 Mikayla Lindsey PTA, 11/16/18 at 3:57 PM * Rhiannon Blank [...] function at this time. * Jessica Irvin, OTR/L - 11/16/2018 10:58 AM EDT Occupational [...] from home with spouse who presents to [facility] with the above deficits which impact [...] to increasing pain) Transfer Assistance: Independent Active Production Officer: Yes Mode of Transportation: Car Type [...] EDT Physical Therapy Rehab Treatment Note Facility/Department: [facility] Room: [place] [address] NAME: Hiram Madrid : 1935 (83 y.o.) [...] 11/16/18 at 11:10 AM * Jessenia Gordon, DIRECTOR OF CUSTOMER ACQUISITION - 11/16/2018 9:35 AM EDT [facility] RECREATIONAL THERAPY Initial Evaluation Date: 11/16/2018 [...] hearing in left ear) Patient seen at: [phone] Recreation Therapist received referral, chart reviewed and [...] her flower bed. Past leisure interests: Walking, faith, had pets Future leisure interests: Emotional Observed/noted: Cooperative and Pleasant Affect: Appropriate Comments: Today s Session included: Increased Socialization, Provided active listening and Benefits of the patient's leisure and recreation pursuits being utilized as stress relievers Recommendations to utilize Recreation Therapy services, its supported services and groups include: [facility], Pet Therapy, Leisure [...] (e.g. memory book) Electronically signed by: MARIEL Stvoer Date: 11/16/2018 * Stevie Trevino, PT - 11/16/2018 8:20 AM EDT Facility/Department: [facility] Rehabilitation Initial Assessment: Physical Therapy Room: [...] L4 performed by Lenny Corral MD at [facility] OR [facility] Right Chart Reviewed: Yes Patient assessed [...] to increasing pain) Transfer Assistance: Independent Active Production Officer: Yes Additional Comments: 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 [...] to initiate log roll long term goals long term goal 1: pt to be indep with bed mobility long term goal 2: pt to be indep with bed transfers alf goal 3: pt to [id number] ft with supervision alf goal 4: pt to navigate 4 steps with SBA long term goal 5: 30/56 for Pizano balance testing ELOS: Plan weeks: 2 Therapy Time: Individual Time In 1000 Time Out 1030 Minutes 30 Stevie Trevino, PT, 11/16/18 at 12:00 PM * Marybel Ackerman, PIPE FITTER WELDING - 11/15/2018 11:29 PM EDT Tashia Stark [...] puffs by inhalation with spacer [] Ipratropium Jackson 0.02% unit dose by aerosol Ipratropium Jackson MDI 2 puffs by inhalation with spacer [] Duoneb (Ipratropium + Albuterol) unit dose by aerosol Ipratropium MDI + Albuterol MDI 2 puffs byinhalation w/spacer MDI to Aerosol [] Albuterol Sulfate MDI Albuterol Sulfate 0.083% unit dose by aerosol [] Levalbuterol MDI 2 puffs by inhalation Levalbuterol 1.25 mg unit dose by aerosol [] Ipratropium Jackson MDI by inhalation Ipratropium Jackson 0.02% unit dose by aerosol [] Combivent (Ipratropium + Albuterol) MDI by inhalation Duoneb (Ipratropium + Albuterol) unit doseby aerosol Treatment Assessment [Frequency/Schedule]: Change frequency to: ACCUNEB Q4 PRN per Protocol, P&T, [facility] Points 0 1 2 3 [...] of lumbosacral region Impaired mobility Vasovagal syncope [facility] [address] [place] [address] Chief Complaint and Reason for Visit Chief [...] 0:11am Cervical spine fracture March 06 11:19am Chief Complaint Admit Date C5 fracture January 24, 2024 7 :22am C5 fracture January 24, 2024 1 0:11am [id number] March 01, 2024 1 0:46am c5 fracture f/u w/x-ray March 06 11:19am hyponatremia March 25, 2024 2 :40pm [id number] April 13, 2024 2:40pm Chief Complaint Admit Date C5 fracture January 24, 2024 7 :22am C5 fracture January 24, 2024 1 0:11am [id number] March 01, 2024 1 0:46am c5 fracture f/u w/x-ray March 06 11:19am hyponatremia March 25, 2024 2 :40pm [id number] April 13, 2024 2:40pm follow up cervical fracture March 1:02pm Chief Complaint Admit Date s12.400a March 01, 2024 1 0:46am c5 fracture f/u w/x-ray March 06 11:19am hyponatremia March 25, 2024 2 :40pm [id number] April 13, 2024 2:40pm follow up cervical fracture March 1:02pm [id number] April 30, 2024 1:4 9pm Reason for Visit Admit Date Cervical spine fracture March 06 11:19am Cervical spine fracture April 17, 2 025 1:02pm Chief Complaint Admit Date s12.400a March 01, 2024 1 0:46am c5 fracture f/u w/x-ray March 06 11:19am hyponatremia March 25, 2024 2 :40pm [id number] April 13, 2024 2:40pm follow up cervical fracture March 1:02pm [id number] April 30, 2024 1:4 9pm discuss neck brace, CT and x-ray April 202024 3:15pm Reason for Visit Admit Date Cervical spine fracture March 06 11:19am Cervical spine fracture April 17, 2 025 1:02pm Cervical spine fracture May 08, 2024 3:15pm Additional Source Comments INFORMATION SOURCE (unrecogn ized section and content) DATE CREATED AUTHOR 04/20/2018 [facility] DATE CREATED AUTHOR AUTHOR'S ORGANIZ ATION 11/24/[facility] DATE CREATED AUTHOR AUTHOR'S ORGANIZ ATION 06/14/[address] [facility] DATE CREATED AUTHOR AUTHOR'S ORGANIZ ATION 01/13/2023 [facility] DATE CREATED AUTHOR AUTHOR'S ORGANIZ ATION 09/28/2023 [facility] DATE CREATED AUTHOR AUTHOR'S ORGANIZ ATION 05/03/2024 [facility] DATE CREATED AUTHOR AUTHOR'S ORGANIZ ATION 08/10/2024 [facility] EPIC Reason for Visit (unrecogniz ed section and content) Reason Comments Back Pain Left low back pain r adiates down left leg. Pain flared up last monday Status Reason Specialty Diagnoses / Procedures Referre d By Contact Referred To Contact Diagnoses Intractable back pain Lenny Corral MD [address], [address] [place] [address] [facility] Reason Comments Ingrown Toenail LT grt nail ingrown Reason Comments Follow-up F/U LT grt nail avul glenroy To[facility] Non DM nail care Patient Care team informatio n (unrecognized section and content) Team Status: Active Member Role Status Ruddy Daniels MD Primary Care Provider Active Team Status: Inactive Member Role Status Ruddy Daniels MD Primary Care Provider Active Start: March 01, 2024 End: March 01, 2024 Niki Owusu MD Attending Provider Active Start: March 01, 2024 End: March 01, 2024 Team Status: Inactive Member Role Status Ruddy Daniels MD Primary Care Provider Active Start: March 06, 2024 End: March 06, 2024 Lg Fu , Attending Provider Active S tart: March 06, 2024 End: March 06, 2024 Team Status: Inactive Member Role Status Ruddy Daniels MD Primary Care Provide r, Attending Provider Active Start: March 25, 2024 End: March 25, 2024 Team Status: Inactive Member Role Status Ruddy Daniels MD Primary Care Provider Active Start: April 13, 2024 End: April 13, 2024 Lg Fu , DO Attending Provider Active S tart: April 13, 2024 End: April 13, 2024 Team Status: Inactive Member Role Status Ruddy Daniels MD Primary Care Provider Active Start: April 17, 2024 End: April 17, 2024 Lg Fu , DO Attending Provider Active S tart: April 17, 2024 End: April 17, 2024 Team Status: Inactive Member Role Status Ruddy Daniels MD Primary Care Provider Active Start: April 30, 2024 End: April 30, 2024 Lg Fu , DO Attending Provider Active S tart: April 30, 2024 End: April 30, 2024 Team Status: Active Member Role Status Ruddy Daniels MD Primary Care Provider Active Start: January 24, 2024 Son Dean MD Admit Provider Active S tart: January 24, 2024 AaronSTEVE Doan Other Provider Active Sta rt: January 24, [...] Gaudencio Romero MD Other Provider Active Start: ebrust 2023 End: April 06, 2023 KAMILA Escobar Other Provider Active Start: April 02, 2023 End: April 06, 2023 Fiona Magana MD Other Provider Active Start: [facility] 2023 End: April 06, 2023 Cachorro Real MD Other Provider Active Star t: April 02, 2023 End: April 06, 2023 Warner Sood MD Other Provider Active Start: April 02, 2023 End: April 06, 2023 Boni Choi MD Other Provider Active Start: ebrust 2023 End: April 06, 2023 Turner Frank [...] Active Start: April 03, 2023 Katie Pearce NP-Dk Other Provider Active Start: April 03, 2023 [...] Status Dates Mami Daniels MD Primary Care Provide r, Attending Provider Active Start: April 12, 2023 Team Status: Inactive Member Role Status Dates Turner Doss MD [facility] Attending Provider Active Start: June 21, 2023 End: June 21, 2023 Team Status: Inactive Member Role Status Dates Mami Daniels MD Primary Care Provider Active Start: May 08, 2024 End: May 08, 2024 Lg Fu DO Attending Provider Active S tart: May 08, 2024 End: May 08, 2024 Hotel Service Manager Relationship Specialty Start Date End Date Mami Daniels MD [address] [place] [address] PCP - General Family Medicine 07/24/24 Hotel Service Manager Relationship Specialty Start Date End Date Mami Daniels MD [address] [place] [address] PCP - General Family Medicine 07/24/24 Hotel Service Manager Relationship Specialty Start Date End Date Mami Daniels MD [address] [place] [address] PCP - General Family Medicine 07/24/24 Goals (unrecognized section and content) Goals may [...] BE BASED ON THE PRIMARY CLINICAL RECORDS. [facility]. provides no warranty or guarantee of the accuracy or completeness of information in this document.
[2024-10-11 12:26] LABS: Hematocrit 39.2 % (36.0-48.0); Hemoglobin 13.6 g/dL (12.0-16.0); Immature Granulocytes Abs Auto 0.05 10^3/uL (0.00-0.03); Immature Granulocytes Pct Auto 0.4 % (0.0-0.5); Lymphocytes Absolute Auto 2.9 10^3/uL (1.2-3.8); Mean Corpuscular HGB Conc 34.7 g/dL (29.9-35.2); Mean Corpuscular Hemoglobin 31.8 pg (26.7-34.0); Mean Corpuscular Volume 91.6 fL (81.0-99.0); Platelet Count 422 10^3/uL (150-450); Red Blood Count 4.28 10^6/uL (4.20-5.40); White Blood Count 12.0 10^3/uL (4.0-11.0)
[2024-10-11 12:36] LABS: Alanine Aminotransferase 21 U/L (14-59); Albumin Globulin Ratio 0.9; Albumin Level 3.6 g/dL (3.4-5.0); Alkaline Phosphatase 84 U/L (46-116); Anion Gap 8.1; Aspartate Amino Transferase 14 U/L (15-37); Blood Urea Nitrogen 16.0 mg/dL (7.0-18.0); Calcium 9.0 mg/dL (8.5-10.1); Carbon Dioxide 29.5 mmol/L (21.0-32.0); Chloride 96 mmol/L (98-107); Estimated GFR (African America >60 (>=60 mL/min/1.73m^2); Estimated GFR (Non-African Ame 52 (>=60 mL/min/1.73m^2); Free T3 1.56 pg/mL (2.18-3.98); Globulin 4.1 g/dL; Glucose 114 mg/dL (74-106); Magnesium 1.8 mg/dL (1.8-2.4); Potassium 4.6 mmol/L (3.5-5.1); Sodium 129 mmol/L (136-145); Thyroid Stimulating Hormone 2.824 uIU/mL (0.358-3.740); Total Protein 7.7 g/dL (6.4-8.2)
[2024-10-11 12:58] LABS: Iron 84.0 ug/dL (50.0-170.0)
[2024-10-11 15:16] LABS: Glucose Urine UA NEGATIVE (NEGATIVE)
[2024-10-11 15:57] LABS: Cast Seen? NONE SEEN #/LPF (NONE SEEN); Crystals Seen? None Seen #/HPF (None Seen)
== END 2024-10-11 11:48 | disposition home or self-care (01) ==
LOC: LAB 11:50
PROVIDERS: PCP Family Medicine; Visit Provider Family Medicine
DX: R35.0 Frequency of micturition (principal); N20.0 Calculus of kidney; I45.10 Unspecified right bundle-branch block; I49.9 Cardiac arrhythmia, unspecified; R73.09 Other abnormal glucose; D64.9 Anemia, unspecified; E03.9 Hypothyroidism, unspecified; I10 Essential (primary) hypertension; D50.9 Iron deficiency anemia, unspecified
CPT/HCPCS: 36415; 80053; 81001; 83036; 83540; 83735; 84436; 84443; 84481; 85025; 87086

== ENCOUNTER 2024-10-14 10:58 | Outpatient (OUT) | payer MEDICARE, OTHER, SELFPAY ==
--- OUTSIDE RECORDS SUMMARY | 2024-10-12 20:08 | XMS_ITS | Continuity of Care Document ---
Author Organization [facility] Address [address] [place] [address] Phone Care Team Providers Care Land Developer Name Role Phone Addy Clemente MD Primary Care Provider [phone] Addy Clemente MD Attending Provider Care Teams Patient Care Team Team Status: Active Member Role Status Dates Addy Clemente MD Primary Care Provider Active Patient Care Team Team Status: Inactive Member Role Status Dates Addy Clemente MD Primary Care Provider Active Start: October 11, 2024 End: October 11, 2024 Addy Clemente MD Attending Provider Active Sta rt: October 11, 2024 End: October 11, 2024 Chief Complaint and Reason for Visit Chief Complaint Admit Date Unknown October 11, 2024 11 :54am Allergies, Adverse Reactions, Alerts Allergen Type Severity Reaction Last Updated Verified Status Comments atorvastatin Allergy Unknown Comment:nohemi porter. May 08, 2024 3:15pm Yes Active Onset Date: 02/20/2021 Corticosteroids (Glucocorticoids) Allergy Unknown Unknown Reaction May 08, 2024 3:15pm Yes Active Onset Date: 02/27/2017 prednisone Allergy Unknown Unknown Reaction May 08, 2024 3:15pm Yes Active Social History Smoking Status Status Start Date End Date Date of Observa tion Never smoked tobacco (finding) January 23, 2024 7:29am Observation Status Observation Response Date of Response Legal Sex Female (finding) Sex Assigned At Female 1935 Family History Relationship Condition Age at Onset Recorded Date/T cullen father Unknown mother Unknown Problems Active Problems Medical Problem Onset Date Status Comments Hyponatremia Unknown Active Cervical spine fracture Unknown Active HTN (hypertension) Unknown Active Problem L ist clean-up per request of Phys. EHR Cmte Inactive/Resolved Problems Medical Problem Onset Date Status Comments SHAN (acute kidney injury) Unknown Resolved Hypertensive urgency Unknown Resolved C5 vertebral fracture Unknown Resolved Hyponatremia Unknown Resolved Problem List cl earnest-up per request of Phys. EHR Cmte Kidney stone Unknown Resolved Problem List cl earnest-up per request of Phys. EHR Cmte Leukocytosis Unknown Resolved Absolute hypovolemia Unknown Resolved Problem List clean-up per request of Phys. EHR Cmte Fall as cause of accidental injury at home as place of occurrence Unknown Resolved Syncope Unknown Resolved Problem List cl earnest-up per request of Phys. EHR Cmte Elevated blood pressure read ing with diagnosis of hypertension Unknown Resolved Nausea & vomiting Unknown Resolved Problem Li st clean-up per request of Phys. EHR Cmte Abdominal pain Unknown Resolved Problem List clean-up per request of Phys. EHR Cmte Acute hypokalemia Unknown Resolved Problem Li st clean-up per request of Phys. EHR Cmte Medications Medication Status Dose Units Route Directions Qty Days St art Date Stop Date End Date Instructions Adherence Aspirin (Aspir-81) 81 mg Tablet,Meagan yed Release (/Ec) Discont inued 1 TAB PO Daily August 06, 2018 12:00a m 2023 7:53p m Levothyroxi ne (Synthroid) 88 mcg Tablet Active 1 TAB PO Daily August 06, 2018 12:00a m Unknown Potassium Chloride (Klor-Con M20) 20 mEq Tablet,Er Particles/C rystals Active 1 TAB PO Three times daily August 06, 2018 12:00a m Unknown Pravastatin 80 mg Tablet Active 1 TAB PO Daily August 06, 2018 12:00a m Unknown Amlodipine (Norvasc) 10 mg Tablet Discont inued 1 TAB PO Daily August 06, 2018 12:00a m 2023 1:04p m Losartan 100 mg Tablet Discont inued 1 TAB PO Daily August 06, 2018 12:00a m Decem malini 2023 1:30a m Hydrochloro thiazide 25 mg tablet Discont inued 25 MG PO Daily 2023 1:00am Febru 2023 1:07p m Magnesium Oxide 400 mg (241.3 mg magnesium) tablet Active 400 MG PO Twice daily as needed for constipatio n 2023 1:00am Unknown Pantoprazol e 40 mg tablet,meagan yed release (DR/EC) Active 40 MG PO Daily at 0630 2023 1:00am Unknown Amlodipine (Norvasc) 10 mg Tablet Active 1 TAB PO Daily 2023 1:04pm Unknown Cephalexin 500 mg capsule Discont inued 500 MG PO Twice daily 14 August 05, 2022 12:00a m [facility]2023 7:53p m Tamsulosin (Flomax) 0.4 mg capsule Discont inued 0.4 MG PO Daily 30 August 05, 2022 12:00a m [facility]2023 7:54p m Naproxen (Naprosyn) 500 mg tablet Discont inued 500 MG PO Twice daily as needed for pain 10 August 05, 2022 12:00a m [facility]2023 7:53p m Ondansetron Hcl 4 mg tablet Active 4 MG PO Daily as needed for nausea and vomiting 5 August 05, 2022 12:00a m Unknown Oxycodone 5 mg tablet Discont inued 5 MG PO Daily as needed for severe pain (scale score 7-10) 5 August 05, [facility] 7:53p m Citalopram 20 mg tablet Active 20 MG PO Daily [facility] 2023 1:00am Unknown Irbesartan 300 mg tablet Active 300 MG PO Daily [facility] 2023 1:00am Unknown Carvedilol 12.5 mg tablet Active 12.5 MG PO Daily [facility] 2023 1:00am Unknown Hydrocodone -Acetaminop hen 5-325 mg Tablet Active 1 TAB PO Every 8 hours as needed for Pain 15 5 [facility] 2023 Unknown Docusate Sodium 100 mg Capsule Active 100 MG PO Twice daily as needed for Constipatio n 14 [facility] er 2023 1:00am Unknown Immunizations Immunization Event Date Not Given Reason Dose Number It Support Manager Lot Number Vaccine Information Statement (VIS) Detail Administration Location influenza, unspecified formulation November 30, 2021 Procedures Procedure Date Performed Status Urine Culture October 11, 2024 active Advance Directives Advance Directive Response Recorded Date/ Time Advance Directives Yes October 16, 2019 11:14am Insurance Providers Guarantor Rebeca Gurrola Address [address] [place] [address] Contact Info. Home Phone: Payer Policy Id Subscriber's Name Subscriber Id Effectiv e Date Expiration Date [facility] [id number] Rebeca Gurrola [id number] Medicare [id number] Rebeca Gurrola [id number] Encounters Encounter Location(s) Arrival/Admit Date Discharge/Depart Date Provider(s) Departed Referred -[facility] October 11, 2024 11:54am October 11, 2024 11:55am Blanca Jerez MD Plan of Treatment Future Tests Future scheduled test information is unavailable Pending Tests Test Name Ordered Date Scheduled Date Urine Culture October 11, 2024 11:54am Future Visits Future appointment information is unavailable Referrals to Other Providers Referral information is unavailable Future Procedures Procedure Name Ordered Date Scheduled Date Urine Culture October 12, 2024 7:43am October 11, 2024 11:54am Future Medications Future medication information is unavailable Patient Instructions Patient instructions are unavailable
--- OUTSIDE RECORDS SUMMARY | 2024-10-14 11:03 | XMS_ITS | Clinical Summary ---
Author Organization [facility] Address [address] [place] [address] Care Team Providers Care Compliance Engineer Products Name Role Phone Addy Clemente MD Primary Care Provider [phone] Allergies Active Allergy Reactions Criticality Noted Date [...] [facility] [address] [place] [id number] Yosi Zaragoza, DPM FACFAS Abscess, toe, left (Primary Dx); Onychocryptosis; Pain in left toe(s); Onychomycosis; Pain in right toe(s) 08/07/2024 Bamboo flowsheet [facility] [address] [place] [address] Yosi Zaragoza, DPM FACFAS 07/24/2024 1:20 PM EDT Office Visit [facility] [address] [place] [phone] Yosi Zaragoza, DPM FACFAS Onychocryptosis (Primary Dx); Abscess, toe, left; Pain in left toe(s) 07/24/2024 Abstract [facility] [address] [facility] [place] [phone] Yosi Zaragoza, DPM FACFAS 07/24/2024 Bamboo flowsheet [facility] [address] [place] [phone] Yosi Zaragoza, DPM FACFAS from Last 3 [...] Procedure Visit [facility] [address] [place] [address] Yosi Zaragoza, DPM FACFAS [address] [place] [place] [address] Insurance MEDICARE [facility] OTHER Care Teams Compliance Engineer Products Relationship Specialty Start Date End Date Addy Clemente MD [address] [facility] [place] [address] PCP - General Family Medicine 07/24/24
--- OUTSIDE RECORDS SUMMARY | 2024-10-14 11:03 | XMS_ITS | Clinical Summary ---
Author Organization [facility] Address [address], [address] [place] [address] Care Team Providers Care Treasury Management Sales Consultant Name Role Phone Lavonne Chery MD Primary Care Provider Allergies Active Allergy Reactions Criticality Noted Date [...] on file Medical Devices Implanted Type Area Contract Management Specialist Device Identifier Shelf Expiration Date Model / Serial / Lot Graft Canc Chip 30cc [id number] - [id number] Implanted:Qt y: 1 on 11/13/2018 by Lenny Mcclellan MD at [facility] Bone/Gra ft/Tissu e/Human/ Synth N/A: Spine Lumbar MUSCULOSKELETAL TRANSPLANT FND-PMM 08/11/2021 [id number] / [id number] / Graft Canc Chip [id number] 15cc - [id number] Implanted:Qt y: 1 on 11/13/2018 by Lenny Mcclellan MD at [facility] Bone/Gra ft/Tissu e/Human/ Synth N/A: Spine Lumbar MUSCULOSKELETAL TRANSPLANT FND-PMM 05/18/2021 [id number] / [id number] / Sys Fix Reline 0x Conn 40 50mm 5.5lp Adj Implanted:Qt y: 1 on 11/13/2018 by Lenny Mcclellan MD at [facility] Spine N/A: Spine Lumbar [employer]-PMM [id number] / / Jose Armando-Graft Infuse Kt Med Implanted:Qt y: 1 on 11/13/2018 by Lenny Mcclellan MD at [facility] Spine N/A: Spine Lumbar [employer]-PMM 07/20/2020 [id number] / / Impl Spine Cage Kamila Crv [id number] 8deg Implanted:Qt y: 1 on 11/13/2018 by Lenny Mcclellan MD at [facility] Spine N/A: Spine Lumbar [employer]-PMM 03/23/2019 / / [id number] Impl Spine Cage Kamila Crv [id number] 8deg Implanted:Qt y: 1 on 11/13/2018 by Lenny Mcclellan MD at [facility] Spine N/A: Spine Lumbar [employer]-PMM 03/23/2019 / / [id number] Screw Polyaxial Reline O 2s 6.0x55mm Implanted:Qt y: 6 on 11/13/2018 by Lenny Mcclellan MD at [facility] Spine N/A: Spine Lumbar [employer]-PMM [id number] / / Screw Lk Reline Opn Tulip 5.5mm Implanted:Qt y: 6 on 11/13/2018 by Lenny Mcclellan MD at [facility] Spine N/A: Spine Lumbar [employer]-PMM [id number] / / Impl Spine Harish Reline-O Lrdtc 5.5x70mm Implanted:Qt y: 1 on 11/13/2018 by Lenny Mcclellan MD at [facility] Spine N/A: Spine Lumbar [employer]-PMM [id number] / / Impl Spine Harish Reline-O 5.5x75mm Implanted:Qt y: 1 on 11/13/2018 by Lenny Mcclellan MD at [facility] Spine N/A: Spine Lumbar [employer]-PMM [id number] / / Insurance [employer] MEDICARE MEDICARE Member Subscriber Plan / Payer ( fective 2018-Present) Name:Rebeca Gurrola Relation to Subscriber:Self Name:Rebeca Gurrola Payer ID:Not on file Group ID:Not on file Type:Not on file Address: [address] Advance Directives Documents on File Type Date Recorded Patient Manager Equipment Expl anation ACP-Advance Directive 11/21/2018 1:53 AM [...] 5:08 PM 11/05/2018 6:34 PM Care Teams Treasury Management Sales Consultant Relationship Specialty Start Date End Date Lavonne Chery MD PCP - General Family Medicine 08/30/17
--- OUTSIDE RECORDS SUMMARY | 2024-10-14 11:03 | XMS_ITS | Encounter Summary ---
Author Organization [facility] Address [address] [place] [address] Care Team Providers Care Crm Coordinator Name Role Phone Addy Clemente MD Primary Care Provider [phone] Encounter Details Date Type Department Care Team ([facility] Contact Info) Description 07/24/2024 Abstract [facility] [address] [place] [address] Yosi Zaragoza, DPM FACFAS [address] [place] [address] Social History Tobacco Use Types Packs/Day Years Used Date Smoking Tobacco: Never Smokeless Tobacco: Never Comments Unknown Sex and Gender Information Value Date Recorded Sex Assigned at Not on file Legal Sex Female 6:43 PM EDT Gender Identity Not on file Sexual Orientation Not on file documented as of this encounter Plan of Treatment Upcoming Encounters Date Type Department Care Team ([facility] Contact Info) Description 11/06/2024 1:10 PM EDT Procedure Visit [facility] [address] [place] [address] Yosi Zaragoza, DPM FACFAS [address] [place] [address] documented as of this encounter Visit Diagnoses Not on filedocumented in this encounter Care Teams Crm Coordinator Relationship Specialty Start Date End Date Addy Clemente MD [address] [place] [address] PCP - General Family Medicine 07/24/24 documented as of this encounter
--- OUTSIDE RECORDS SUMMARY | 2024-10-14 11:03 | XMS_ITS | Clinical Summary ---
Author Organization [facility] Address [address] [place] [address] Care Team Providers Care Real Estate Transaction Coordinator Name Role Phone Addy Clemente MD Primary Care Provider [phone] Allergies Active Allergy Reactions Criticality Noted Date [...] topic Insurance MEDICARE GENERIC OTHER Care Teams Real Estate Transaction Coordinator Relationship Specialty Start Date End Date Addy Clemente MD [address] [facility] [address] [place], [place] [id number] PCP - General 04/04/22
--- OUTSIDE RECORDS SUMMARY | 2024-10-14 11:04 | XMS_ITS | Clinical Summary ---
Author Organization [facility] Address [address] [place] [address] Care Team Providers Care Wind Energy Engineer Name Role Phone Son Sweeney Primary Care Provider [phone] Allergies No known active allergies Medications aspirin, [...] 2024 Insurance MEDICARE [facility] Care Teams Wind Energy Engineer Relationship Specialty Start Date End Date Son Sweeney DO PCP - General Family Medicine 03/10/14
--- OUTSIDE RECORDS SUMMARY | 2024-10-14 11:16 | XMS_ITS | CCD ---
Author Organization [facility] Care Team Providers Care Ore Digger Name Role Phone PHYSICIAN, DEFAULT Admitting Unavailable [...] Physician ADELSO, DR PADILLA Consulting Unavailable CARLAY .DR BOLAÑOS Primary Care Unavailable ADELSO, DR PADILLA Attending Unavailable ADELSO, DR PADILLA Admitting Unavailable JEREMIAH .DR BOLAÑOS Primary Care Unavailable LUIS ENRIQUESHMIPATHKhoa .TYLER Attending Kerry vailable LAKSHMIPATHKhoa ., TYLER Admitting [...] DR PADILLA Admitting Unavailable ACEVES, DR CALISTA ePreira Consulting Unavailable ACEVES, DR CALISTA Pereira Primary [...] [phone] DO Camacho Cooper Emergency Provider [facility] Mami Euceda Primary Care Physician VALERIE DARDEN Attending Unavailable LESLY ALANIZ Attending Unavailable LESLY ALANIZ Attending Unavailable MD Mami Daniels Primary Care Provider [phone] MD Lucy Lockhart Admit Provider MD Gaudencio Romero Other Provider KAZ Pearce-C Katie Other Provider Unavailable MD Fiona Magana Other Provider MD Cachorro Real Other Provider [phone] MD Warner Sood Other Provider MD Boni Choi Other Provider DO Turner Frank Attending Provider [phone] MD Turner Nielsen Emergency Provider [phone] MD Mami Daniels Primary Care Provider [phone] MD Lucy Lockhart Admit Provider MD Gaudencio Romero Other Provider Ramses, COMMISSARY AGENT-C Katie Other Provider Unavailable MD Fiona Magana [...] [phone] Lg Fu DO Attending Provider [phone] Mami Daniels MD Primary Care Provider [phone] Niki Owusu MD Attending Provider [phone] Mami Daniels MD Attending Provider Lg Fu DO Attending Provider Unavailable Primary Care Provider UnavailMami Gonsales MD Primary Care Provider [phone] YOSI ATKINS Attending Unavailable YOSI ATKINS Attending Unavailable Mami Daniels MD Primary Care Provider [phone] Mami Daniels MD Attending Provider Umer Obmichelle M Admitting Unavailable Darjuditr Obaydarandy M Attending Unavailable Mami Daniels M Primary Care Unavailable Mami Daniels Primary Care Unavailable Mami Daniels Attending Unavailable Mami Daniels Admitting Unavailable Bial[place]i, Lg N Admitting Unavailable Bialrosa, Lg N Attending Unavailable Mami Daniels M Primary Care Unavailable Bialaski, Lg N Admitting Unavailable Bialkayei, Lg N Attending Unavailable Mami Daniels M Primary Care Unavailable Niki Owusu Attending Unavailable Aaron Cordoba Consulting Unavailable Son Dena Admitting Unavailable Mami Daniels Primary Care Unavailable Kristofer Aceves Consulting Unavailable Soo Carvalho Consulting Unavailable Lg Fu Consulting Unavailable Mami Daniels Attending Unavailable Mami Daniels Admitting Unavailable Mami Daniels Primary Care Unavailable Allergies Allergy Classification Reported Allergen(s) Allergy Type Date of Onset Reaction(s) Facility (18 sources) predniSONE; Translations: [prednisone] Drug Allergy 8 Hives, Eruption of skin (disorder) [place] (2 sources) predniSONE Drug Allergy 7 [facility] Repository (16 sources) atorvastatin; Translations: [atorvastatin] Drug Allergy 3 Unknown (qualifier value), Weal (disorder) [facility] Comment on above: Onset Date: 02/20/19 22 (9 sources) Ibuprofen; Translations: [ibuprofen] Drug Allergy 5 Unknown (qualifier value), Stomach ache (finding), GI intolerance, Unknown [facility] (12 sources) Corticosteroids; Translations: [Corticosteroids (Glucocorticoids )] Allergy to substance 3 Unknown Reaction [facility] Comment on above: Onset Date: 02/27/19 18 (5 sources) atorvastatin Drug Allergy 3 Hives [facility] Healthcare Work Phone: (5 sources) Prednisone Allergy to substance 8 Hives, Rash [facility] Healthcare (5 sources) Wound Dressing Adhesive Propensity to adverse reactions 5 [facility] Healthcare (1 source) atorvastatin Drug Allergy 5 [facility] Repository (1 source) predniSONE Drug Allergy 5 [facility] Repository Medications Current Medications Medication Drug [...] / HYDROcodone bitartrate 5 mg oral tablet (8 sources) Opioid Agonist Start: 01-25-2024 take 1 tablet by mouth every eight hours as needed for pain acetaminophen 325 mg / oxyCODONE hydrochloride 5 [...] take 1 tablet by mouth once daily aspirin 81 mg oral capsule (17 sources) Platelet Aggregation Inhibitor, Nonsteroidal Anti-inflammatory Drug [...] Antibacterial, Polymyxin-class Antibacterial Start: 11-16-2018 End: 11-18-2018 iadbbfby-qiyznpvwxe-hyklqyzr n (NEOSPORIN) ointment carvedilol 25 mg oral tablet (16 sources) alpha-Adrenergic Yadira, beta-Adrenergic Yadira Start: 06-04-2024 take 1 tablet by mouth twice daily at mealtime carvedilol (Coreg) 25 MG tablet TAKE 1 TABLET BY MOUTH TWICE A DAY WITH FOOD FOR 90 DAYS 06/04/2024 Active Start: 01-23-2024 take 1 tablet by neil th once daily Start: 05-03-2023 take 1 tablet by neil th twice daily carvedilol 6.25 mg Tab 6.25 mg = 1 tab(s), Oral, BID, Refills(s) 0 Start Date: 05/03/23 Status: Ordered Start: 08-10-2022 carvedilol Ora l Start Date: 08/10/22 Status: Ordered cinnamon oil liquid 1 drop (1 source) Start: 11-15-2018 cinnamon oil liquid 1 drop citalopram 20 mg oral tablet (15 sources) Serotonin Reuptake Inhibitor Start: 01-23-2024 take 1 tablet by mouth in the morning citalopram (CeleXA) 20 MG tablet Take 20 mg by mouth in the morning. 07/07/2024 Active Start: 04-19-2023 take 1 tablet by neil th once daily CeleXA 10 mg Tab 10 mg = 1 tab(s), Oral, Daily, Refills(s) 0 Start Date: 04/19/23 Status: Ordered docusate sodium 100 mg oral capsule (9 sources) Start: 01-25-2024 take 1 capsule by [facility] twice daily as needed for constipation Start: 11-15-2018 take 100 mg by mouth [...] 600 mg irbesartan 300 mg oral tablet (13 sources) Angiotensin 2 Receptor Yadira Start: 01-23-2024 take 1 tablet by mouth once daily irbesartan (Avapro) 300 MG tablet TAKE 1 TABLET BY MOUTH EVERY DAY FOR 90 DAYS 07/08/2024 Active lactulose 667 mg/ml oral solution (1 source) [...] take 1 tablet by neil once daily End: 11-19-2018 levothyroxine (SYNTHROID) 10 0 MCG tablet Take 88 mcg by mouth Daily 0 11/19/2018 Discontinued (Stop Taking at Discharge) losartan potassium 100 mg oral tablet (19 sources) Angiotensin 2 Receptor Yadira Start: 11-16-2018 [...] 1:30am magnesium oxide 400 mg oral tablet (18 sources) Start: 03-05-2024 take 1 tablet by mouth three times daily as needed magnesium oxide (Mag-Ox) 400 MG tablet Take 1 tablet by mouth 3 (three) times a day as needed 03/05/2024 Active Start: 04-19-2023 take 1 tablet by [facility] three times daily magnesium oxide 400 mg Tab 400 mg = 1 tab(s), Oral, TID, Refills(s) 0 Start Date: 04/19/23 Status: Ordered Start: 04-02-2023 take 1 tablet by [facility] twice daily as needed for constipation 1 ml morphine sulfate 4 mg/ml cartridge (2 sources) Opioid Agonist Start: 11-04-2018 morphine injec tion 4 mg Start: 11-04-2018 End: 11-04-2018 morphine (PF) injection 4 mg ondansetron 4 mg oral tablet (14 sources) Serotonin-3 Receptor Antagonist Start: 08-05-2022 take 1 tablet by mouth once daily as needed for nausea and vomiting Start: 11-05-2018 4 mg, Intraven ous, EVERY 6 HOURS PRN, Nausea, Starting Mon11/05/18 at 1830 Start: 11-04-2018 End: 11-04-2018 ondansetron (ZOFRAN) injecti on 4 mg pantoprazole 40 mg delayed release oral tablet (13 sources) Proton Pump Inhibitor Start: 04-04-2023 take 1 tablet by mouth once daily polyethylene glycol 3350 56548 mg powder for oral solution (1 source) Osmotic Laxative Start: 11-15-2018 polyethylene glycol (GLYCOLAX) packet 17 g Potassium Chloride (20 sources) Start: 08-10-2022 Potassium Chlo ride (Alw-Egnw-Lrj 10) 20 mEq, Oral, TID Start Date: 08/10/22 Status: Ordered Start: 08-10-2022 Potassium Chlo ride (Ffm-Yekw-Zsz 10) mEq, Oral, BID Start Date: 08/10/22 [...] tablet by neil th three times daily Start: 08-06-2018 take 1 tablet by neil th once daily Potassium Chloride (Klor-Con M20) 20 mEq Tablet,Er Particles/Crystals Active 1 TAB PO Daily August 06, 2018 12:00am pravastatin sodium 80 mg oral tablet (20 sources) HMG-CoA Reductase Inhibitor Start: 08-06-2018 take 1 tablet by mouth once daily sennosides, mcc 8.6 mg oral tablet (1 [...] Sig (Original) cephalexin 500 mg oral capsule (15 sources) Cephalosporin Antibacterial Start: 08-05-2022 End: 04-02-2023 [...] 2 tab(s), Refills(s) 0, Pharmacy: [facility] 1985, 155, cm, 08/10/22 9:03:00 EDT, Height/Length Dosing, 65, kg, 08/10/22 9:03:00 EDT, Weight Dosing Start Date: 08/30/22 Status: Ordered gadoteridol (PROHANCE) injection 15 mL (1 source) Start: 11-05-2018 End: 11-05-2018 gadoteridol (PROHANCE) injection 15 mL hydroCHLOROthiazide 25 mg oral tablet (12 sources) Thiazide Diuretic Start: 04-02-2023 End: 04-06-2023 [...] 11/19/2018 Discontinued naproxen 500 mg oral tablet (12 sources) Nonsteroidal Anti-inflammatory Drug Start: 08-05-2022 End: 04-02-2023 take 1 tablet by mouth twice daily as needed for pain Naproxen (Naprosyn) 500 mg tablet Discontinued 500 MG PO Twice daily as needed for pain 10 August 05, 2022 12:00am April 02, 2023 7:53pm oxyCODONE hydrochloride 5 mg oral tablet (12 sources) Opioid Agonist Start: 08-05-2022 End: 04-02-2023 [...] mEq tamsulosin hydrochloride 0.4 mg oral capsule (12 sources) alpha-Adrenergic Yadira Start: 08-05-2022 End: 04-02-2023 [...] Problem Date Documented Date Episodic/Chronic Abdominal pain (12 sources) Abdominal pain; Translations: [Unspecified abdominal pain] 08-05-2022 Episodic Comment on above: Problem List clean-u p per request of Phys. EHR Cmte Calculus of urinary tract (15 sources) Kidney stone; Translations: [Calculus of kidney] 08-05-2022 Episodic Comment on above: Problem List clean-u p per request of Phys. EHR Cmte Cardiac dysrhythmias (3 sources) Atrial fibrillation 08-10-2022 Chronic Conduction disorders (2 sources) Right bundle branch block 04-19-2023 Chronic Diseases of white blood cells (15 sources) Elevated white blood cell count, unspecified; [...] Chronic Hypertension with complications and secondary hypertension (16 sources) Hypertensive heart disease without heart failure; Translations: [Hypertensive urgency ] Onset: 04-04-2022 Chronic Mycoses (2 sources) Onychomycosis; Translations: [Tinea unguium] 08-07-2024 Episodic Nausea and vomiting (13 sources) Nausea; Translations: [Nausea and vomiting] Onset: [...] sources) Hearing loss 08-10-2022 Chronic Other fractures (8 sources) Fracture of fifth cervical vertebra; Translations: [Unspecified displaced fracture of fifth cervical vertebra, initial encounter for closed fracture] 02-02-2024 Episodic Other fractures (6 sources) Fracture of cervical spine; Translations: [Fracture of neck, unspecified, initial encounter] 03-06-2024 Episodic Other injuries and conditions due [...] [Lumbar spondylosis] Onset: 11-13-2018 11-13-2018 Chronic Syncope (17 sources) Vasovagal syncope; Translations: [Syncope] Onset: 04-04-2022 [...] Problem Date Documented Da te Episodic/Chronic Acute and unspecified renal failure (14 sources) Acute renal failure syndrome; Translations: [Acute kidney failure, unspecified] Onset: 01-24-2024 02-02-2024 Episodic Acute bronchitis (1 source) Acute bronchitis, unspecified; Translations: [ACUTE BRONCHITIS UNSPECIFIED] Onset: 12-31-2021 Episodic Administrative/social admission (2 sources) Impaired mobility; Translations: [Impaired mobility] Onset: 11-15-2018 11-15-2018 Episodic E Codes: Fall (14 sources) Fall in home; Translations: [Unspecified fall, initial encounter] Onset: 01-24-2024 02-02-2024 Episodic E Codes: Place of occurrence (1 source) Unspecified place in unspecified non-institutional (private) residence as the place of occurrence of the external cause; Translations: [Unspecified place in unspecified non-institutional (private) residence as the place of occurrence of the external cause] Onset: 01-24-2024 Episodic Fluid and electrolyte disorders (20 sources) Hypo-osmolality and hyponatremia; Translations: [Dehydration] Onset: 11-09-2021 Episodic Comment on above: Problem List clean-u p per request of Phys. 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; Translations: [TRANSPORTATION LEAD CURRENT USE OF ASPIRIN] Onset: 12-31-2021 Episodic 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 source) Other [facility] (current) drug therapy; Translations: [OTH [facility] CURRENT DRUG THERAPY] Onset: 12-31-2021 Episodic Other fractures (6 sources) Unspecified displaced fracture of fifth cervical vertebra, initial encounter for closed fracture; Translations: [Closed fracture of fifth cervical vertebra] Onset: 03-01-2024 01-24-2024 Episodic Other fractures (9 sources) Fracture of neck, unspecified, initial encounter; Translations: [Closed fracture of cervical vertebra, unspecified level] Onset: 04-13-2024 03-06-2024 Episodic Other fractures (1 source) Other nondisplaced [...] Test Name Value Interpretation Reference Range Facility Urine Cultureon 10-11-2024 Bacteria identified Cx Nom (U) 10,000 colonies/ml mixed bacterial skin contaminants 1 Day PERFORMED BY: [place] [address] PATHOLOGIST LANDING SIGNAL OFFICER NELLIE Anders [facility] Comment on above: Performed By: #### C UU #### [address] XR cerv spine AP/LAT/FLX/EXT on 04-30-2024 XR cerv spine AP/LAT/FLX/EXT [facility] Main [place] [address] [place] [address] CT Scan Report Signed Patient: Hiram Madrid MR#: [id number] : 1935 Acct:[id number] Age/Sex: 88 / F ADM Date: 04/30/24 Loc: CT Room: Type: [facility] Attending Dr: Lg Fu DO Copies to: Lg Fu DO Ordering Provider: Lg Fu DO Date of Service: 04/30/24 CT/CT cervical spine wo con: S12.9XXA - Fracture of neck, unspecified, initial encounter ([id number]) XR/XR cerv spine AP/LAT/FLX/EXT: S12.9XXA - Fracture [...] Chris Munguia M.D.04/30/2024 3:03 PM Dictation Location: [place] [address] Transcribed By: [facility] 04/30/24 1503 Dictated By: Chris Munguia MD 04/30/24 1454 Signed By: 04/30/24 1503 Normal [facility] X-ray reportOrdered By: Angelo Winchester on 04-12-2024 Study report [facility] Main [place] [address] [place] [address] XRay Report Signed Patient: Hiram Madrid MR#: [id number] : 1935 Acct:[id number] Age/Sex: 88 / F ADM Date: 5 [...] Angelo Winchester M.D.04/12/2024 9:08 PM Dictation Location: [facility]--17 Transcribed By: DORETHA 04/12/242107 Dictated By: Angelo Winchester II, MD 04/12/242105 Signed By: 04/12/242107 [facility] Work Phone: XR cervical spine 2Von 04-12 XR cervical spine 2V [facility] [place] [address] XRay Report Signed Patient: Hiram Madrid MR#: [id number] : 1935 Acct:[id number] Age/Sex: 88 / F ADM Date: 04/12/24 [...] Angelo Winchester M.D.04/12/2024 9:08 PM Dictation Location: [place] [address] Transcribed By: DORETHA 04/12/242107 Dictated By: Angelo Winchester II, MD 04/12/242105 Signed By: 04/12/242107 Normal [facility] Alanine aminotransferase [En zymatic activity/volume] in Serum or PlasmaOrdered By: Mami Daniels on 03-25-2024 ALT [Catalytic activity/Vol] Alanine aminotransferase [Enzymatic activity/volume] in Serum or Plasma 7-52 [facility] Albumin [Mass/volume] in Ser um or Plasma by Bromocresol green (BCG) dye binding methoOrdered By: Mami Daniels on 03-25-2024 Albumin BCG dye [Mass/Vol] Albumin [Mass/volume] in Serum or Plasma by Bromocresol green (BCG) dye binding metho 3.5-5.7 [facility] Alkaline phosphatase [Enzyma tic activity/volume] in Serum or PlasmaOrdered By: Mami Daniels on 03-25-2024 ALP [Catalytic activity/Vol] Alkaline phosphatase [Enzymatic activity/volume] in Serum or Plasma 34-104 [facility] Aspartate aminotransferase [ Enzymatic activity/volume] in Serum or PlasmaOrdered By: Mami Daniels on 03-25-2024 AST [Catalytic activity/Vol] Aspartate aminotransferase [Enzymatic activity/volume] in Serum or Plasma 13-39 [facility] Basophils Auto (Bld) [#/Vol] Ordered By: Mami Daniels on 03-25-2024 Basophils (Bld) [#/Vol] Automated basoph il count 0.0-0.2 [facility] Basophils/100 WBC Auto (Bld) Ordered By: Mami Daniels on 03-25-2024 Basophils/100 WBC (Bld) Automated basoph il % . [facility] Bilirubin.total [Mass/volume ] in Serum or PlasmaOrdered By: Mami Daniels on 03-25-2024 Bilirubin [Mass/Vol] Bilirubin.total [Mass/volume] in Serum or Plasma 0.3-1.0 [facility] Calcium [Mass/volume] in Ser um or PlasmaOrdered By: Mami Daniels on 03-25-2024 Calcium [Mass/Vol] Calcium [Mass/volume] in Serum or Plasma Low 8.6-10.3 [facility] Carbon dioxide, total [Moles /volume] in Serum or PlasmaOrdered By: Mami Daniels on 03-25-2024 CO2 [Moles/Vol] Carbon dioxide, total [Moles/volume] in Serum or Plasma 21.0-31.0 [facility] Chloride [Moles/volume] in S willa or PlasmaOrdered By: Mami Daniels on 03-25-2024 Chloride [Moles/Vol] Chloride [Moles/volume] in Serum or Plasma Low 98-107 [facility] Complete Blood Count Auto Di ffon 03-25-2024 Basophils (Bld) [#/Vol] 0.0 10*3/uL Normal 0.0-0.2 [facility] Comment on above: Result Comment: PERF ORMED BY: [facility] [address] [place] [address] PATHOLOGIST [employer]ANDING [employer]NAL OFFICER SHERLYN BUSTILLO M.D. Performed By: #### C BC, CMP ####[address] Basophils/100 WBC (Bld) 0.7 % Normal . T babatunde [facility] Comment on above: Performed By: #### C BC, CMP ####[address] Eosinophils (Bld) [#/Vol] 0.0 10*3/uL Normal 0.0-0.45 [facility] Comment on above: Performed By: #### C BC, CMP ####[address] Eosinophils/100 WBC (Bld) 0.1 % Normal . [facility] Comment on above: Performed By: #### C BC, CMP ####[address] Erythrocyte distribution width (RBC) [Ratio] 14.6 % Normal 11.9-15.[address] [facility] Comment on above: Performed By: #### C BC, CMP ####[address] Hematocrit (Bld) [Volume fraction] 35.5 % Normal 34.0-46.4 [facility] Comment on above: Performed By: #### C BC, CMP ####[address] Hemoglobin (Bld) [Mass/Vol] 12.6 g/dL Normal 11.8-15.4 [facility] Comment on above: Performed By: #### C BC, CMP ####[address] Lymphocytes (Bld) [#/Vol] 1.7 10*3/uL Normal 1.00-4.8 [facility] Comment on above: Performed By: #### C BC, CMP ####[address] Lymphocytes/100 WBC (Bld) 43.1 % Normal . [facility] Comment on above: Performed By: #### C BC, CMP ####[address] MCH (RBC) [Entitic mass] 32.5 pg Normal 24.7-34.3 [facility] Comment on above: Performed By: #### C BC, CMP ####[address] MCV (RBC) [Entitic vol] 91.8 fL Normal 80-100 [facility] Comment on above: Performed By: #### C BC, CMP ####[address] Mean Corpuscular HGB Conc 35.4 g/dL High 32.0-35.0 [facility] Comment on above: Performed By: #### C BC, CMP ####[address] Monocytes (Bld) [#/Vol] 0.5 10*3/uL Normal 0.0-0.8 [facility] Comment on above: Performed By: #### C BC, CMP ####[place] [id number] [facility] Monocytes/100 WBC (Bld) 11.9 % Normal . [facility] Comment on above: Performed By: #### C BC, CMP ####[place] [id number] [facility] Neutrophils (Bld) [#/Vol] 1.8 10*3/uL Normal 1.8-7.7 [facility] Comment on above: Performed By: #### C BC, CMP ####[address] Neutrophils/100 WBC (Bld) 44.2 % Normal . [facility] Comment on above: Performed By: #### C BC, CMP ####[place] [id number] [facility] NRBC% 0.2 /100{WBC} Normal 0-0.5 [facility] Comment on above: Performed By: #### C BC, CMP ####[place] [id number] [facility] Platelet mean volume (Bld) [Entitic vol] 7.7 fL Normal 6.3-10.[address] [facility] Comment on above: Performed By: #### C BC, CMP ####[address] [address] [facility] Platelets (Bld) [#/Vol] 312 10*3/uL Normal 150-450 [facility] Comment on above: Performed By: #### C BC, CMP ####[place] [id number] [facility] RBC (Bld) [#/Vol] 3.87 10*6/uL Normal 3.60-5.00 [facility] Comment on above: Performed By: #### C BC, CMP ####[place] [id number] [facility] WBC (Bld) [#/Vol] 4.0 10*3/uL Normal 3.8-11.6 [facility] Comment on above: Performed By: #### C BC, CMP ####[place] [id number] [facility] Comprehensive Metabolic Pane bebeto 03-25-2024 Albumin [Mass/Vol] 3.6 g/dL Normal 3.5-5.7 [facility] Comment on above: Performed By: #### C BC, CMP ####[place] [id number] [facility] Albumin/Globulin [Mass ratio] 1.6 {ratio} Normal [facility] Comment on above: Performed By: #### C BC, CMP ####[address] ALP [Catalytic activity/Vol] 55 U/L Normal 34-104 [facility] Comment on above: Result Comment: PERF ORMED BY: [facility] [address] [place] [address] PATHOLOGIST [employer]ING [employer]NAL OFFICER SHERLYN BUSTILLO M.D. Performed By: #### C BC, CMP ####[address] ALT [Catalytic activity/Vol] 14 U/L Normal 7-52 [facility] Comment on above: Performed By: #### C BC, CMP ####[place] [phone] [facility] Anion gap [Moles/Vol] 11.3 mmol/L Normal 6.0-15.0 e [facility] Comment on above: Performed By: #### C BC, CMP ####[place] [phone] [facility] AST [Catalytic activity/Vol] 25 U/L Normal 13-39 [facility] Comment on above: Performed By: #### C BC, CMP ####[place] [phone] [facility] Bilirubin [Mass/Vol] 0.4 mg/dL Normal 0.3-1.0 [facility] Comment on above: Performed By: #### C BC, CMP ####[address] [address] [facility] Calcium [Mass/Vol] 8.5 mg/dL Low 8.6-10.3 [facility] Comment on above: Performed By: #### C BC, CMP ####[place] [id number] [place] [address] [facility] Chloride [Moles/Vol] 93 mmol/L Low 98-107 [facility] Comment on above: Performed By: #### C BC, CMP ####[place] [id number] [place] [address] [facility] CO2 [Moles/Vol] 26.6 mmol/L Normal 21.0-31.0 [facility] Comment on above: Performed By: #### C BC, CMP ####[place] [phone] [facility] Creatinine [Mass/Vol] 0.87 mg/dL Normal 0.60-1.20 [facility] Comment on above: Performed By: #### C BC, CMP ####[address] [address] [facility] GFR/1.73 sq M.predicted MDRD (S/P/Bld) [Vol rate/Area] mL/min/{1.73_m2} Normal [facility] [facility] Comment on above: Performed By: #### C BC, CMP ####[place] [id number] [facility] Globulin (S) [Mass/Vol] 2.3 g/dL Normal [facility] Comment on above: Performed By: #### C BC, CMP ####[place] [id number] [facility] Glucose [Mass/Vol] 105 mg/dL High 70-100 [facility] Comment on above: Result Comment: [place] Glucose Reference Range is dependent on time and content of last meal. Glucose of more than 200 mg/dL in a nonstressed, ambulatory subject supports the diagnosis of Diabetes Mellitus. ADA recommended reference range Performed By: #### C BC, CMP ####[facility] [place] [address] [facility] Potassium [Moles/Vol] 3.9 mmol/L Normal 3.5-5.1 [facility] Comment on above: Performed By: #### C BC, CMP ####[facility] [place] [address] [facility] Protein [Mass/Vol] 5.9 g/dL Low 6.4-8.9 [facility] Comment on above: Performed By: #### C BC, CMP ####[facility] [place] [address] [facility] Sodium [Moles/Vol] 127 mmol/L Low 136-145 [facility] Comment on above: Performed By: #### C TIFFANIE, CMP ####[facility] [place] [id number] [facility] Urea nitrogen [Mass/Vol] 12 mg/dL Normal 7-25 [facility] Comment on above: Performed By: #### C TIFFANIE, CMP ####[facility] [place] [id number] [facility] Creatinine [Mass/volume] in Serum or PlasmaOrdered By: Mami Daniels on 03-25-2024 Creatinine [Mass/Vol] Creatinine [Mass/volume] in Serum or Plasma 0.60-1.20 [facility] Eosinophils Auto (Bld) [#/Vo l]Ordered By: Mami Daniels on 03-25-2024 Eosinophils (Bld) [#/Vol] Automated eosinophil count 0.0-0.45 [facility] Eosinophils/100 WBC Auto (Bl d)Ordered By: Mami Daniels on 03-25-2024 Eosinophils/100 WBC (Bld) Automated eosinophil % . [facility] Erythrocyte distribution wid th Auto (RBC) [Ratio]Ordered By: Mami Daniels on 03-25-2024 Erythrocyte distribution width (RBC) [Ratio] Erythrocyte distribution width [Ratio] by Automated count 11.9-15.3 [facility] Globulin Calc (S) [Mass/Vol] Ordered By: Mami Daniels on 03-25-2024 Globulin (S) [Mass/Vol] Serum globulin measurement by calculation (mass/volume) [facility] Glucose [Mass/volume] in Ser um or PlasmaOrdered By: Mami Daniels on 03-25-2024 Glucose [Mass/Vol] Glucose [Mass/volume] in Serum or Plasma High 70-100 [facility] Comment on above: ADA recommended refe rence rangeRandom Glucose Reference Range is dependent on time and content of last meal. Glucose of more than 200 mg/dL in a nonstressed, ambulatory subject supports the diagnosis of Diabetes Mellitus. Hematocrit Auto (Bld) [Volum e fraction]Ordered By: Mami Daniels on 03-25-2024 Hematocrit (Bld) [Volume fraction] Hematocrit [Volume Fraction] of Blood by Automated count 34.0-46.4 [facility] Hemoglobin [Mass/volume] in BloodOrdered By: Mami Daniels on 03-25-2024 Hemoglobin (Bld) [Mass/Vol] Hemoglobin [Mass/volume] in Blood 11.8-15.4 [facility] Leukocytes [#/volume] correc sofiya for nucleated erythrocytes in Blood by Automated counOrdered By: Mami Daniels on 03-25-2024 WBC corrected for nucl RBC Auto (Bld) [#/Vol] Leukocytes [#/volume] corrected for nucleated erythrocytes in Blood by Automated coun 3.8-11.6 [facility] Lymphocytes Auto (Bld) [#/Vo l]Ordered By: Mami Daniels on 03-25-2024 Lymphocytes (Bld) [#/Vol] Lymphocytes [#/volume] in Blood by Automated count 1.00-4.8 [facility] Lymphocytes/100 WBC Auto (Bl d)Ordered By: Mami Daniels on 03-25-2024 Lymphocytes/100 WBC (Bld) Lymphocytes/100 leukocytes in Blood by Automated count . [facility] MCH Auto (RBC) [Entitic mass ]Ordered By: Mami Daniels on 03-25-2024 MCH (RBC) [Entitic mass] MCH [Entitic ma ss] by Automated count 24.7-34.3 [facility] MCHC Auto (RBC) [Mass/Vol]Or dered By: Mami Daniels on 03-25-2024 MCHC (RBC) [Mass/Vol] MCHC [Mass/volume] by Automated count High 32.0-35.0 [facility] MCV Auto (RBC) [Entitic vol] Ordered By: Mami Daniels on 03-25-2024 MCV (RBC) [Entitic vol] MCV [Entitic volume] by Automated count 80-100 [facility] Monocytes Auto (Bld) [#/Vol] Ordered By: Mami Daniels on 03-25-2024 Monocytes (Bld) [#/Vol] Automated blood monocyte count 0.0-0.8 [facility] Monocytes/100 WBC Auto (Bld) Ordered By: Mami Daniels on 03-25-2024 Monocytes/100 WBC (Bld) Automated monocy te % . [facility] Neutrophils Auto (Bld) [#/Vo l]Ordered By: Mami Daniels on 03-25-2024 Neutrophils (Bld) [#/Vol] Neutrophils [#/volume] in Blood by Automated count 1.8-7.7 [facility] Neutrophils/100 WBC Auto (Bl d)Ordered By: Mami Daniels on 03-25-2024 Neutrophils/100 WBC (Bld) Automated neutrophil % . [facility] No Panel InformationOrdered By: Mami Daniels on 03-25-2024 Estimated GFR (CKD-EPI) > 60.0 mL/Min [facility] Creatinine Clearance (Chem N/A [facility] Nucleated erythrocytes [Pres ence] in Blood by Automated countOrdered By: Mami Daniels on 03-25-2024 Nucleated RBC Auto Ql (Bld) Nucleated erythrocytes [Presence] in Blood by Automated count 0-0.5 [facility] Platelet mean volume Auto (B ld) [Entitic vol]Ordered By: Mami Daniels on 03-25-2024 Platelet mean volume (Bld) [Entitic vol] Platelet mean volume [Entitic volume] in Blood by Automated count 6.3-10.7 [facility] Platelets Auto (Bld) [#/Vol] Ordered By: Mami Daniels on 03-25-2024 Platelets (Bld) [#/Vol] Platelets [#/volume] in Blood by Automated count 150-450 [facility] Potassium [Moles/volume] in Serum or PlasmaOrdered By: Mami Daniels on 03-25-2024 Potassium [Moles/Vol] Potassium [Moles/volume] in Serum or Plasma 3.5-5.1 [facility] Protein [Mass/volume] in Ser um or PlasmaOrdered By: Mami Daniels on 03-25-2024 Protein [Mass/Vol] Protein [Mass/volume] in Serum or Plasma Low 6.4-8.9 [facility] RBC Auto (Bld) [#/Vol]Ordere d By: Mami Daniels on 03-25-2024 RBC (Bld) [#/Vol] Erythrocytes [#/volume] in Blood by Automated count 3.60-5.00 [facility] Serum or plasma albumin/glob ulin mass ratioOrdered By: Mami Daniels on 03-25-2024 Albumin/Globulin [Mass ratio] Serum or plasma albumin/globulin mass ratio [facility] Serum or plasma anion gap de terminationOrdered By: Mami Daniels on 03-25-2024 Anion gap [Moles/Vol] Serum or plasma anion gap determination 6.0-15.0 [facility] Sodium [Moles/volume] in Ser um or PlasmaOrdered By: Mami Daniels on 03-25-2024 Sodium [Moles/Vol] Sodium [Moles/volume] in Serum or Plasma Low 136-145 [facility] Urea nitrogen [Mass/volume] in Serum or PlasmaOrdered By: Mami Daniels on 03-25-2024 Urea nitrogen [Mass/Vol] Urea nitrogen [Mass/volume] in Serum or Plasma 7-25 [facility] WBC Auto (Bld) [#/Vol]Ordere d By: Mami Daniels on 03-25-2024 WBC (Bld) [#/Vol] Leukocytes [#/volume] in Blood by Automated count 3.8-11.6 [facility] X-ray reportOrdered By: Chirag Munguia on 03-01-2024 Study report [facility] Main [address] [address] XRay Report Signed Patient: Hiram Madrid MR#: [id number] : 1935 Acct:[id number] Age/Sex: 88 / F ADM Date: 5 Loc: XD Room: Type: REG CLI Attending Dr: Niki Owusu MD Copies to: Niki Owusu MD~ Ordering Provider: Niki Owusu MD Date of Service: 03/01/24 XR/XR cervical spine 2V: f/u C5 fracture CERVICAL SPINE 2 views: CLINICAL HISTORY: C5 fracture, follow-up COMPARISON: CT from [facility] 01/21/2025, MRI cervical spine 01/24/2024 FINDINGS: There is reversal of the normal cervical lordosis. There is is minimal anterolisthesis C3 and C4 and C4-C5 1 to 2 mm. There is minimal retrolisthesis C5 on C6 1 to 2 mm. The fracture fragments at the anterior-inferior endplate ofC5 appears distracted anteriorly and well corticated. Tcyudqmv-bf-nxnary multilevel facet arthropathy. Facet joints are normal in alignment. Overall moderate multilevel disc space narrowing greatest at C5-C6, appearing severe at this level. No prevertebral soft tissue swelling. XR/XR cervical spine 2V IMPRESSION: SLIGHT ANTERIOR DISTRACTION OF THE FRACTURE AT C5.. FRACTURE APPEARS WELL CORTICATED. Impression dictated by: Chris Munguia M.D.03/01/2024 4:16 PM Dictation Location: [place] [address] Transcribed By: [facility] 03/01/241615 Dictated By: Chris Munguia MD 03/01/24 1610 Signed By: 03/01/24 [facility] Work Phone: XR cervical spine 2Von 03-01 XR cervical spine 2V [facility] Main [place] [address] [place] [address] XRay Report Signed Patient: Hiram Madrid MR#: [id number] : 1935 Acct:[id number] Age/Sex: 88 / F ADM Date: 03/01/24 Loc: XD Room: Type: REG CLI Attending Dr: Niki Owusu MD Copies to: Niki Owusu MD Ordering Provider: Niki Owusu MD Date of Service: 03/01/24 XR/XR cervical spine 2V: f/u C5 fracture CERVICAL SPINE 2 views: CLINICAL HISTORY: C5 fracture, follow-up COMPARISON: CT from [facility] 01/21/2025, MRI cervical spine 01/24/2024 FINDINGS: There is reversal of the normal cervical lordosis. There is is minimal anterolisthesis C3 and C4 and C4-C5 1 to 2 mm. There is minimal retrolisthesis C5 on C6 1 to 2 mm. The fracture fragments at the anterior-inferior endplate of C5 appears distracted anteriorly and well corticated. Irwastnr-mn-xrwomc multilevel facet arthropathy. Facet joints are normal in alignment. Overall moderate multilevel disc space narrowing greatest at C5-C6, appearing severe at this level. No prevertebral soft tissue swelling. XR/XR cervical spine 2V IMPRESSION: SLIGHT ANTERIOR DISTRACTION OF THE FRACTURE AT C5.. FRACTURE APPEARS WELL CORTICATED. Impression dictated by: Chris Munguia M.D.03/01/2024 4:16 PM Dictation Location: [place] [address] Transcribed By: [facility] 03/01/24 1616 Dictated By: Chris Munguia MD 03/01/24 1610 Signed By: 03/01/24 1616 Normal [facility] Basic Metabolic Panelon 12-0 Anion gap [Moles/Vol] 10.9 mmol/L Normal 6.0-15.0 Th e [facility] Comment on above: Performed By: #### B MP, MG, CBCNO #### [facility] [address] Calcium [Mass/Vol] 8.8 mg/dL Normal 8.6-10.3 [facility] Comment on above: Performed By: #### B MP, MG, CBCNO #### [facility] [address] [place] [address] [place] Chloride [Moles/Vol] 97 mmol/L Low 98-107 [facility] Comment on above: Performed By: #### B MP, MG, CBCNO #### [facility] [address] [place] [id number] [place] CO2 [Moles/Vol] 27.7 mmol/L Normal 21.0-31.0 [facility] Comment on above: Performed By: #### B MP, MG, CBCNO #### [facility] [address] Creatinine [Mass/Vol] 0.84 mg/dL Significan t change down 0.60-1.20 [facility] Comment on above: Performed By: #### B MP, MG, CBCNO #### [address] Creatinine Clr Calc Pharmacy 41.86 Normal [facility] Comment on above: Result Comment: PERF ORMED BY: [place] [address] PATHOLOGIST [employer] SHERLYN BUSTILLO M.D. Performed By: #### B MP, MG, CBCNO #### [address] GFR/1.73 sq M.predicted MDRD (S/P/Bld) [Vol rate/Area] mL/min/{1.73_m2} Normal [facility] Comment on above: Performed By: #### B MP, MG, CBCNO #### [address] Glucose [Mass/Vol] 115 mg/dL High 70-100 [facility] Comment on above: Result Comment: [facility] Glucose Reference Range is dependent on time and content of last meal. Glucose of more than 200 mg/dL in a nonstressed, ambulatory subject supports the diagnosis of Diabetes Mellitus. ADA recommended reference range Performed By: #### B MP, MG, CBCNO #### [facility] [address] Potassium [Moles/Vol] 3.6 mmol/L Normal 3.5-5.1 [facility] Comment on above: Performed By: #### B MP, MG, CBCNO #### [address] Sodium [Moles/Vol] 132 mmol/L Low 136-145 [facility] Comment on above: Performed By: #### B MP, MG, CBCNO #### [address] Urea nitrogen [Mass/Vol] 17 mg/dL Normal 7-25 [facility] Comment on above: Performed By: #### B MP, MG, CBCNO #### [address] Hemogram CBC Without Diffon 01-25-2024 Erythrocyte distribution width (RBC) [Ratio] 14.0 % Normal 11.9-15.[address] [facility] Comment on above: Performed By: #### B MP, MG, CBCNO #### [address] Hematocrit (Bld) [Volume fraction] 36.1 % Normal 34.0-46.4 [facility] Comment on above: Performed By: #### B MP, MG, CBCNO #### [address] Hemoglobin (Bld) [Mass/Vol] 12.0 g/dL Normal 11.8-15.4 [facility] Comment on above: Performed By: #### B MP, MG, CBCNO #### [address] MCH (RBC) [Entitic mass] 30.5 pg Normal 24.7-34.3 [facility] Comment on above: Performed By: #### B MP, MG, CBCNO #### [address] MCV (RBC) [Entitic vol] 91.4 fL Normal 80-100 [facility] Comment on above: Performed By: #### B MP, MG, CBCNO #### [address] Mean Corpuscular HGB Conc 33.4 g/dL Normal 32.0-35.0 [facility] Comment on above: Performed By: #### B MP, MG, CBCNO #### [place] [address] [place] Platelet mean volume (Bld) [Entitic vol] 7.8 fL Normal 6.3-10.[address] [facility] Comment on above: Result Comment: PERF ORMED BY: [place] [address] PATHOLOGIST [employer] SHERLYN BUSTILLO M.D. Performed By: #### B MP, MG, CBCNO #### [address] Platelets (Bld) [#/Vol] 385 10*3/uL Normal 150-450 [facility] Comment on above: Performed By: #### B MP, MG, CBCNO #### [address] RBC (Bld) [#/Vol] 3.94 10*6/uL Normal 3.60-5.00 The [facility] Comment on above: Performed By: #### B MP, MG, CBCNO #### [address] WBC (Bld) [#/Vol] 12.1 10*3/uL High 3.8-11.6 [facility] Comment on above: Performed By: #### B MP, MG, CBCNO #### [address] Magnesiumon 01-25-2024 Magnesium [Mass/Vol] 1.7 mg/dL Low 1.9-2.7 [facility] Comment on above: Result Comment: PERF ORMED BY: [place] [address] PATHOLOGIST [employer] SHERLYN BUSTILLO M.D. Performed By: #### B MP, MG, CBCNO #### [address] XR cervical spine 2Von 01-24 XR cervical spine 2V [facility] Main [place] [address] [place] [address] XRay Report Signed Patient: Hiram Madrid MR#: [id number] : 1935 Acct:[id number] Age/Sex: 88 / F ADM Date: 01/24/24 Loc: Room: 3T9307-4 Type: ADM IN Attending Dr: Niki Owusu [...] Andrea Graf M.D.01/25/2024 10:00 AM Dictation Location: [place] [address] Transcribed By: [facility] 01/25/24 1000 Dictated By: Andrea Graf DO 01/25/24 0957 Signed By: 01/25/24 1000 Normal [facility] Basic Metabolic Panelon 120 Anion gap [Moles/Vol] 15.6 mmol/L High 6.0-15.0 Th e [facility] Comment on above: Performed By: #### C KULWINDER, BMP ####[facility] [place] [id number] [facility] Calcium [Mass/Vol] 8.9 mg/dL Normal 8.6-10.3 [facility] Comment on above: Performed By: #### C KULWINDER, BMP ####[facility] [address] [place] [address] [facility] Chloride [Moles/Vol] 94 mmol/L Low 98-107 [facility] Comment on above: Performed By: #### C KULWINDER, BMP ####[place] [id number] [place] [id number] [facility] CO2 [Moles/Vol] 24.6 mmol/L Normal 21.0-31.0 The [facility] Comment on above: Performed By: #### C KULWINDER, BMP ####[place] [id number] [facility] Creatinine [Mass/Vol] 1.55 mg/dL Significan t change up 0.60-1.20 [facility] Comment on above: Performed By: #### C KULWINDER, BMP ####[address] Creatinine Clr Calc Pharmacy 22.62 Normal [facility] Comment on above: Result Comment: PERF ORMED BY: [facility] [address] [place] [address] PATHOLOGIST [employer] SHERLYN BUSTILLO M.D. Performed By: #### C KULWINDER, BMP ####[place] [id number] [facility] Estimated GFR 32.226 mL/Min Normal [facility] Comment on above: Performed By: #### C KULWINDER, BMP ####[address] Glucose [Mass/Vol] 121 mg/dL High 70-100 [facility] Comment on above: Result Comment: [place] Glucose Reference Range is dependent on time and content of last meal. Glucose of more than 200 mg/dL in a nonstressed, ambulatory subject supports the diagnosis of Diabetes Mellitus. ADA recommended reference range Performed By: #### C KULWINDER, BMP ####[place] [id number] [facility] Potassium [Moles/Vol] 4.2 mmol/L Normal 3.5-5.1 [facility] Comment on above: Performed By: #### C KULWINDER, BMP ####[place] [id number] [facility] Sodium [Moles/Vol] 130 mmol/L Low 136-145 [facility] Comment on above: Performed By: #### C BCNO, BMP ####[address] Urea nitrogen [Mass/Vol] 23 mg/dL Normal 7-25 [facility] Comment on above: Performed By: #### C BCFLOYD, BMP ####[address] Hemogram CBC Without Diffon 01-24-2024 Erythrocyte distribution width (RBC) [Ratio] 13.9 % Normal 11.9-15.[address] [facility] Comment on above: Performed By: #### C BCFLOYD, BMP ####[address] Hematocrit (Bld) [Volume fraction] 37.2 % Normal 34.0-46.4 [facility] Comment on above: Performed By: #### C BCFLOYD, BMP ####[address] Hemoglobin (Bld) [Mass/Vol] 12.6 g/dL Normal 11.8-15.4 [facility] Comment on above: Performed By: #### C BCFLOYD, BMP ####[address] MCH (RBC) [Entitic mass] 30.6 pg Normal 24.7-34.3 [facility] Comment on above: Performed By: #### C BCNO, BMP ####[address] MCV (RBC) [Entitic vol] 90.5 fL Normal 80-100 T he [facility] Comment on above: Performed By: #### C BCNO, BMP ####[address] Mean Corpuscular HGB Conc 33.8 g/dL Normal 32.0-35.0 [facility] Comment on above: Performed By: #### C BCNO, BMP ####[address] Platelet mean volume (Bld) [Entitic vol] 7.5 fL Normal 6.3-10.[address] [facility] Comment on above: Result Comment: PERF ORMED BY: [place] [address] PATHOLOGIST [employer] SHERLYN BUSTILLO M.D. Performed By: #### C BCNO, BMP ####[address] Platelets (Bld) [#/Vol] 408 10*3/uL Normal 150-450 [facility] Comment on above: Performed By: #### C BCNO, BMP ####[address] RBC (Bld) [#/Vol] 4.11 10*6/uL Normal 3.60-5.00 The [facility] Comment on above: Performed By: #### C BCNO, BMP ####[address] WBC (Bld) [#/Vol] 11.5 10*3/uL Normal 3.8-11.6 [facility] Comment on above: Performed By: #### C BCNO, BMP ####[address] MR cervical spine wo conon 1 03-26-2023 MR cervical spine wo con [facility] [place] [address] MRI Report Signed Patient: Hiram Madrid MR#: [id number] : 1935 Acct:[id number] Age/Sex: 88 / F ADM Date: 01/24/24 Loc: Room: [address] [place] [address] Type: ADM IN Attending Dr: Niki Owusu [...] Angelo Winchester M.D.01/24/2024 7:59 PM Dictation Location: [place] [address] Transcribed By: [facility] 01/24/241958 Dictated By: Angeol Winchester II, MD 01/24/241951 Signed By: 01/24/241958 Normal [facility] Complete Blood Count Auto Di ffon 01-23-2024 Basophils (Bld) [#/Vol] 0.1 10*3/uL Normal 0.0-0.2 [facility] Comment on above: Result Comment: PERF ORMED BY: [place] [address] PATHOLOGIST [employer] SHERLYN BUSTILLO M.D. Performed By: #### C MG TIFFANIE, CMP #### [address] Basophils/100 WBC (Bld) 0.9 % Normal . T babatunde [facility] Comment on above: Performed By: #### C BC MG, CMP #### [place] [address] [place] Eosinophils (Bld) [#/Vol] 0.0 10*3/uL Normal 0.0-0.45 [facility] Comment on above: Performed By: #### C BC MG, CMP #### [place] [address] [place] Eosinophils/100 WBC (Bld) 0.2 % Normal . [facility] Comment on above: Performed By: #### C BC MG, CMP #### [address] [address] [place] Erythrocyte distribution width (RBC) [Ratio] 13.9 % Normal 11.9-15.[address] [facility] Comment on above: Performed By: #### C BC, MG, CMP #### [address] Hematocrit (Bld) [Volume fraction] 40.4 % Normal 34.0-46.4 [facility] Comment on above: Performed By: #### C BC, MG, CMP #### [address] Hemoglobin (Bld) [Mass/Vol] 13.5 g/dL Normal 11.8-15.4 [facility] Comment on above: Performed By: #### C BC, MG, CMP #### [address] Lymphocytes (Bld) [#/Vol] 1.7 10*3/uL Normal 1.00-4.8 [facility] Comment on above: Performed By: #### C BC, MG, CMP #### [address] Lymphocytes/100 WBC (Bld) 12.0 % Normal . [facility] Comment on above: Performed By: #### C BC, MG, CMP #### [address] MCH (RBC) [Entitic mass] 30.3 pg Normal 24.7-34.3 [facility] Comment on above: Performed By: #### C BC, MG, CMP #### [address] MCV (RBC) [Entitic vol] 90.5 fL Normal 80-100 T he [facility] Comment on above: Performed By: #### C BC, MG, CMP #### [address] Mean Corpuscular HGB Conc 33.4 g/dL Normal 32.0-35.0 [facility] Comment on above: Performed By: #### C BC, MG, CMP #### [facility] [address] [place] [address] [place] Monocytes (Bld) [#/Vol] 0.8 10*3/uL Normal 0.0-0.8 [facility] Comment on above: Performed By: #### C BC, MG, CMP #### [facility] [address] [place] [address] [place] Monocytes/100 WBC (Bld) 5.4 % Normal . T babatunde [facility] Comment on above: Performed By: #### C BC, MG, CMP #### [facility] [address] [place] [address] [place] Neutrophils (Bld) [#/Vol] 11.7 10*3/uL High 1.8-7.7 [facility] Comment on above: Performed By: #### C BC, MG, CMP #### [facility] [address] [place] [address] [place] Neutrophils/100 WBC (Bld) 81.5 % Normal . [facility] Comment on above: Performed By: #### C BC, MG, CMP #### [facility] [address] [place] [address] [place] NRBC% 0.0 /100{WBC} Normal 0-0.5 The [facility] Comment on above: Performed By: #### C BC, MG, CMP #### [facility] [address] [place] [address] [place] Platelet mean volume (Bld) [Entitic vol] 7.4 fL Normal 6.3-10.[address] [facility] Comment on above: Performed By: #### C BC, MG, CMP #### [facility] [address] [place] [id number] [place] Platelets (Bld) [#/Vol] 428 10*3/uL Normal 150-450 [facility] Comment on above: Performed By: #### C BC, MG, CMP #### [facility] [address] [place] [address] [place] RBC (Bld) [#/Vol] 4.47 10*6/uL Normal 3.60-5.00 The [facility] Comment on above: Performed By: #### C BC, MG, CMP #### [facility] [address] [place] [address] WBC (Bld) [#/Vol] 14.3 10*3/uL High 3.8-11.6 [facility] Comment on above: Performed By: #### C BC, MG, CMP #### [address] Comprehensive Metabolic Pane bebeto 01-23-2024 Albumin [Mass/Vol] 3.9 g/dL Normal 3.5-5.7 The [facility] Comment on above: Performed By: #### C BC, MG, CMP #### [address] Albumin/Globulin [Mass ratio] 1.3 {ratio} Normal [facility] Comment on above: Performed By: #### C BC, MG, CMP #### [address] ALP [Catalytic activity/Vol] 73 U/L Normal 34-104 [facility] Comment on above: Performed By: #### C BC, MG, CMP #### [address] ALT [Catalytic activity/Vol] 18 U/L Normal 7-52 [facility] Comment on above: Performed By: #### C BC, MG, CMP #### [address] Anion gap [Moles/Vol] 14.2 mmol/L Normal 6.0-15.0 [facility] Comment on above: Performed By: #### C BC, MG, CMP #### [address] AST [Catalytic activity/Vol] 46 U/L High 13-39 [facility] Comment on above: Performed By: #### C BC, MG, CMP #### [facility] [address] [place] [address] Bilirubin [Mass/Vol] 0.6 mg/dL Normal 0.3-1.0 [facility] Comment on above: Performed By: #### C BC, MG, CMP #### [facility] [address] [place] [address] [place] Calcium [Mass/Vol] 9.3 mg/dL Normal 8.6-10.3 [facility] Comment on above: Performed By: #### C BC, MG, CMP #### [facility] [address] [place] [address] [place] Chloride [Moles/Vol] 96 mmol/L Low 98-107 [facility] Comment on above: Performed By: #### C BC, MG, CMP #### [facility] [address] [place] [address] [place] CO2 [Moles/Vol] 24.7 mmol/L Normal 21.0-31.0 The [facility] Comment on above: Performed By: #### C BC, MG, CMP #### [facility] [address] [place] [address] [place] Creatinine [Mass/Vol] 0.81 mg/dL Normal 0.60-1.20 [facility] Comment on above: Performed By: #### C BC, MG, CMP #### [facility] [address] [place] [address] [place] Creatinine Clr Calc Pharmacy 43.35 Normal [facility] Comment on above: Performed By: #### C BC, MG, CMP #### [facility] [address] [place] [address] [place] GFR/1.73 sq M.predicted MDRD (S/P/Bld) [Vol rate/Area] mL/min/{1.73_m2} Normal [facility] Comment on above: Performed By: #### C BC, MG, CMP #### [facility] [address] [place] [address] [place] Globulin (S) [Mass/Vol] 3.1 g/dL Normal [facility] Comment on above: Performed By: #### C BC, MG, CMP #### [facility] [address] [place] [address] [place] Glucose [Mass/Vol] 131 mg/dL High 70-100 [facility] Comment on above: Result Comment: [place] Glucose Reference Range is dependent on time and content of last meal. Glucose of more than 200 mg/dL in a nonstressed, ambulatory subject supports the diagnosis of Diabetes Mellitus. ADA recommended reference range Performed By: #### C BC, MG, CMP #### [facility] [address] Potassium [Moles/Vol] 3.9 mmol/L Normal 3.5-5.1 [facility] Comment on above: Performed By: #### C BC, MG, CMP #### [facility] [address] Protein [Mass/Vol] 7.0 g/dL Normal 6.4-8.9 [facility] Comment on above: Performed By: #### C BC, MG, CMP #### [address] Sodium [Moles/Vol] 131 mmol/L Low 136-145 [facility] Comment on above: Performed By: #### C BC, MG, CMP #### [address] Urea nitrogen [Mass/Vol] 12 mg/dL Normal 7-25 [facility] Comment on above: Performed By: #### C BC, MG, CMP #### [address] Magnesiumon 01-23-2024 Magnesium [Mass/Vol] 1.7 mg/dL Low 1.9-2.7 [facility] Comment on above: Result Comment: PERF ORMED BY: [facility] [address] [place] [address] PATHOLOGIST [employer] SHERLYN BUSTILLO M.D. Performed By: #### C BC, MG, CMP ####[facility] [place] [address] Urinalysison 01-23-2024 Appearance (U) Clear Normal Clear [facility] Comment on above: Order Comment: Name Collection Type:: Clean-Voided Midstream Performed By: #### U A #### [place] [address] [place] Bilirubin,Urine Negative Normal Negative The [facility] Comment on above: Order Comment: Name Collection Type:: Clean-Voided Midstream Performed By: #### U A #### [place] [address] [place] Color (U) Light-Yellow Normal Yellow The [facility] Comment on above: Order Comment: Name Collection Type:: Clean-Voided Midstream Performed By: #### U A #### [place] [address] [place] Glucose Ql (U) Normal Normal Normal [facility] Comment on above: Order Comment: Name Collection Type:: Clean-Voided Midstream Performed By: #### U A #### [place] [address] [place] Ketones Ql (U) Trace High Negative [facility] Comment on above: Order Comment: Name Collection Type:: Clean-Voided Midstream Performed By: #### U A #### [place] [address] [place] Leukocyte esterase Test strip Ql (U) Negative Normal Negative [facility] Comment on above: Order Comment: Name Collection Type:: Clean-Voided Midstream Performed By: #### U A #### [place] [address] [place] Nitrite,Urine Negative Normal Negative [facility] Comment on above: Order Comment: Name Collection Type:: Clean-Voided Midstream Performed By: #### U A #### [place] [address] [place] Occult Blood,Urine Negative Normal Negative [facility] Comment on above: Order Comment: Name Collection Type:: Clean-Voided Midstream Result Comment: PERF ORMED BY: [place] [address] PATHOLOGIST [employer] SHERLYN BUSTILLO M.D. Performed By: #### U A #### [address] pH (U) 7.5 [pH] Normal 5.0-9.0 [facility] Comment on above: Order Comment: Name Collection Type:: Clean-Voided Midstream Performed By: #### U A #### [address] Protein,Urine Negative Normal Negative [facility] Comment on above: Order Comment: Name Collection Type:: Clean-Voided Midstream Performed By: #### U A #### [address] Specificy [place],Urine 1.013 Normal 1.001-1.030 [facility] Comment on above: Order Comment: Name Collection Type:: Clean-Voided Midstream Performed By: #### U A #### [address] Urobilinogen,Urine Normal Normal Normal [facility] Comment on above: Order Comment: Name Collection Type:: Clean-Voided Midstream Performed By: #### U A #### [address] Urine Cultureon 01-23-2024 Bacteria identified Cx Nom (U) 20,000 colonies/ml mixed bacterial skin contaminants 2 Days PERFORMED BY: [place] [address] PATHOLOGIST [employer] SHERLYN BUSTILLO M.D. Normal [facility] Comment on above: Performed By: #### C UU #### [address] Reminderson 09-26-2023 Reminders Reminders -- From: Jacqiue Gan To: ERIN Weiss; Sent: 12/22/2022 12:30:05 EDT Show up: 05/23/2023 12:30:00 EDT Subject: JAC and BUN/Creatinine prior to appt Reminder Message Please Remember to:_have pt schedule JAC prior to appt. Please look for BUN/Cr labs from PCP. If unable to locate recent labs, send pt order to complete this. Pt cancelled appt. Separate message to PRW regarding tracking pt. 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 Your Care Team Attending Physician - ROMARIO DUMONT, Turner Mckeon Primary Care Physician - Jeremiah DUMONT, Mami This Is Your Medications List Contact prescribing physician if questions or concerns amlodipine (amLODIPine 10 mg Tab) carvedilol (carvedilol 6.25 mg Tab) citalopram (CeleXA 10 mg Tab) levothyroxine (levothyroxine 88 mcg (0.088 mg) Tab) losartan (losartan 100 mg Tab) magnesium oxide (magnesium oxide 400 mg Tab) pantoprazole (Pantoprazole [address] Tab) potassium chloride (Potassium Chloride (Khk-Qjfx-And 10)) pravastatin (pravastatin 80 mg Tab) Procedures [...] or concerns Unchanged potassium chloride (Potassium Chloride (Sqf-Lvah-Ghu 10)) 20 Milliequivalent By Mouth 3 times [...] choosing us for your care. Normal [facility] General Surgery Office/Clini c Noteon 06-28-2023 [...] mg= 1 tab(s), Oral, Daily Potassium Chloride (Nky-Mokb-Tyd 10), 20 mEq, Oral, TID pravastatin 80 [...] influenza virus vaccine, inactivated 12/11/2014 Recorded Normal [facility] Comment on above: Result Comment: Elec tronically Signed By: ROMARIO DUMONT, Turner Mckeon\.br\Date and Time Signed: 06/28/23 15:02 EDT Pathology Noteon 06-26-2023 Pathology Note [id number] 8D#1.00TIFF [facility] Operative Reporton Operative Report [id number] 64#1.00TIFF [facility] Consent for Procedure/Surger yon 05-04-2023 Consent for Procedure/Surgery [id number] 99#1.00TIFF [facility] Facesheeton 05-04-2023 Facesheet [id number] 70#1.00TIFF [facility] Ambulatory Visit Summaryon 0 05-03-2023 Ambulatory [...] mg DR Tab) potassium chloride (Potassium Chloride (Cft-Exxt-Rlt 10)) pravastatin (pravastatin 80 mg Tab) Procedures [...] [facility] Physician Referralon 024 Physician Referral [id number] 69#1.00TIFF [facility] Physician Referralon 024 Physician Referral [id number] 42#1.00TIFF [facility] Laboratory - Chemistry and C hemistry - challengeon 04-12-2023 Calcium [Mass/Vol] 8.9 mg/dL [facility] Chloride [Moles/Vol] 98 mmol/L [facility] CO2 [Moles/Vol] 25.9 mmol/L [facility] Creatinine [Mass/Vol] 0.76 mg/dL [facility] Glucose [Mass/Vol] 113 mg/dL [facility] Potassium [Moles/Vol] 4.0 mmol/L [facility] Sodium [Moles/Vol] 135 mmol/L [facility] Urea nitrogen [Mass/Vol] 12.0 mg/dL [facility] Calcium [Mass/volume] in Ser um or PlasmaOrdered By: Turner Frank on 04-05-2023 Calcium [Mass/Vol] 9.2 mg/dL 8.6-10.3 [facility] Carbon dioxide, total [Moles /volume] in Serum or PlasmaOrdered By: Turner Frank on 04-05-2023 CO2 [Moles/Vol] 27.7 mmol/L 21.0-31.0 [facility] Chloride [Moles/volume] in S willa or PlasmaOrdered By: Turner Frank on 04-05-2023 Chloride [Moles/Vol] 91 mmol/L 98-107 [facility] Creatinine [Mass/volume] in Serum or PlasmaOrdered By: Turner Frank on 04-05-2023 Creatinine [Mass/Vol] 0.56 mg/dL 0.60-1.20 [facility] Glucose [Mass/volume] in Ser um or PlasmaOrdered By: Turner Frank on 04-05-2023 Glucose [Mass/Vol] 116 mg/dL 70-100 [facility] Comment on above: ADA recommended refe rence rangeRandom Glucose Reference Range is dependent on time and content of last meal. Glucose of more than 200 mg/dL in a nonstressed, ambulatory subject supports the diagnosis of Diabetes Mellitus. No Panel InformationOrdered By: Turner Frank on 04-05-2023 Estimated GFR (CKD-EPI) > 60.0 mL/Min [facility] Creatinine Clearance (Chem 42.78 [facility] Potassium [Moles/volume] in Serum or PlasmaOrdered By: Turner Frank on 04-05-2023 Potassium [Moles/Vol] 3.5 mmol/L 3.5-5.1 [facility] Serum or plasma anion gap de terminationOrdered By: Turner Frank on 04-05-2023 Anion gap [Moles/Vol] 14.8 mmol/L 6.0-15.0 [facility] Sodium [Moles/volume] in Ser um or PlasmaOrdered By: Turner Frank on 04-05-2023 Sodium [Moles/Vol] 130 mmol/L 136-145 [facility] Urea nitrogen [Mass/volume] in Serum or PlasmaOrdered By: Turner Frank on 04-05-2023 Urea nitrogen [Mass/Vol] 8 mg/dL 7-25 [facility] Thyroxine (T4) free [Mass/vo lume] in Serum or PlasmaOrdered By: Turner Frank on 04-04-2023 Free T4 [Mass/Vol] 1.41 ng/dL 0.61-1.12 [facility] Alanine aminotransferase [En zymatic activity/volume] in Serum or PlasmaOrdered By: Natividad Gregory on 04-03-2023 ALT [Catalytic activity/Vol] 14 U/L 7-52 [facility] Albumin [Mass/volume] in Ser um or Plasma by Bromocresol green (BCG) dye binding methoOrdered By: Natividad Gregory on 04-03-2023 Albumin BCG dye [Mass/Vol] 3.7 g/dL 3.5-5.7 [facility] Alkaline phosphatase [Enzyma tic activity/volume] in Serum or PlasmaOrdered By: Natividad Gregory on 04-03-2023 ALP [Catalytic activity/Vol] 56 U/L 34-104 [facility] Aspartate aminotransferase [ Enzymatic activity/volume] in Serum or PlasmaOrdered By: Natividad Gregory on 04-03-2023 AST [Catalytic activity/Vol] 20 U/L 13-39 [facility] Basophils Auto (Bld) [#/Vol] Ordered By: Natividad Gregory on 04-03-2023 Basophils (Bld) [#/Vol] 0.1 10*3/uL 0.0-0.2 [facility] Basophils/100 WBC Auto (Bld) Ordered By: Natividad Gregory on 04-03-2023 Basophils/100 WBC (Bld) 0.6 % . [facility] Bilirubin.total [Mass/volume ] in Serum or PlasmaOrdered By: Natividad Gregory on 04-03-2023 Bilirubin [Mass/Vol] 0.7 mg/dL 0.3-1.0 [facility] Eosinophils Auto (Bld) [#/Vo l]Ordered By: Natividad Gregory on 04-03-2023 Eosinophils (Bld) [#/Vol] 0.1 10*3/uL 0.0-0.45 [facility] Eosinophils/100 WBC Auto (Bl d)Ordered By: Natividad Gregory on 04-03-2023 Eosinophils/100 WBC (Bld) 0.8 % . [facility] Erythrocyte distribution wid th Auto (RBC) [Ratio]Ordered By: Natividad Gregory on 04-03-2023 Erythrocyte distribution width (RBC) [Ratio] 13.9 % 11.9-15.3 [facility] Globulin Calc (S) [Mass/Vol] Ordered By: Natividad Gregory on 04-03-2023 Globulin (S) [Mass/Vol] 2.4 g/dL [facility] Hematocrit Auto (Bld) [Volum e fraction]Ordered By: Natividad Gregory on 04-03-2023 Hematocrit (Bld) [Volume fraction] 35.5 % 34.0-46.4 [facility] Hemoglobin [Mass/volume] in BloodOrdered By: Natividad Gregory on 04-03-2023 Hemoglobin (Bld) [Mass/Vol] 12.7 g/dL 11.8-15.4 [facility] Leukocytes [#/volume] correc sofiya for nucleated erythrocytes in Blood by Automated counOrdered By: Natividad Gregory on 04-03-2023 WBC corrected for nucl RBC Auto (Bld) [#/Vol] 10.6 10*3/uL 3.8-11.6 [facility] Lymphocytes Auto (Bld) [#/Vo l]Ordered By: Natividad Gregory on 04-03-2023 Lymphocytes (Bld) [#/Vol] 1.7 10*3/uL 1.00-4.8 [facility] Lymphocytes/100 WBC Auto (Bl d)Ordered By: Natividad Gregory on 04-03-2023 Lymphocytes/100 WBC (Bld) 15.6 % . [facility] MCH Auto (RBC) [Entitic mass ]Ordered By: Natividad Gregory on 04-03-2023 MCH (RBC) [Entitic mass] 31.6 pg 24.7-34.3 [facility] MCHC Auto (RBC) [Mass/Vol]Or dered By: Natividad Gregory on 04-03-2023 MCHC (RBC) [Mass/Vol] 35.8 g/dL 32.0-35.0 [facility] MCV Auto (RBC) [Entitic vol] Ordered By: Nativdiad Gregory on 04-03-2023 MCV (RBC) [Entitic vol] 88.3 fL 80-100 [facility] Monocytes Auto (Bld) [#/Vol] Ordered By: Natividad Monsalvee on 04-03-2023 Monocytes (Bld) [#/Vol] 1.1 10*3/uL 0.0-0.8 [facility] Monocytes/100 WBC Auto (Bld) Ordered By: Natividad Gregory on 04-03-2023 Monocytes/100 WBC (Bld) 10.3 % . [facility] Neutrophils Auto (Bld) [#/Vo l]Ordered By: Natividad Gregory on 04-03-2023 Neutrophils (Bld) [#/Vol] 7.7 10*3/uL 1.8-7.7 [facility] Neutrophils/100 WBC Auto (Bl d)Ordered By: Natividad Gregory on 04-03-2023 Neutrophils/100 WBC (Bld) 72.7 % . [facility] Nucleated erythrocytes [Pres ence] in Blood by Automated countOrdered By: Natividad Gregory on 04-03-2023 Nucleated RBC Auto Ql (Bld) 0.3 /100{WBC} 0-0.5 [facility] Platelet mean volume Auto (B ld) [Entitic vol]Ordered By: Natividad Gregory on 04-03-2023 Platelet mean volume (Bld) [Entitic vol] 7.0 fL 6.3-10.7 [facility] Platelets Auto (Bld) [#/Vol] Ordered By: Natividad Monsalvee on 04-03-2023 Platelets (Bld) [#/Vol] 424 10*3/uL 150-450 [facility] Protein [Mass/volume] in Ser um or PlasmaOrdered By: Natividad Gregory on 04-03-2023 Protein [Mass/Vol] 6.1 g/dL 6.4-8.9 [facility] RBC Auto (Bld) [#/Vol]Ordere d By: Natividad Gregory on 04-03-2023 RBC (Bld) [#/Vol] 4.02 10*6/uL 3.60-5.00 [facility] Serum or plasma albumin/glob ulin mass ratioOrdered By: Natividad Gregory on 04-03-2023 Albumin/Globulin [Mass ratio] 1.5 {ratio} [facility] WBC Auto (Bld) [#/Vol]Ordere d By: Natividad Gregory on 04-03-2023 WBC (Bld) [#/Vol] 10.6 10*3/uL 3.8-11.6 [facility] Magnesium [Mass/volume] in S willa or PlasmaOrdered By: Natividad Gregory on 04-02-2023 Magnesium [Mass/Vol] 1.9 mg/dL 1.9-2.7 [facility] No Panel InformationOrdered By: Natividad Gregory on 04-02-2023 Urine Osmolality 298 mosm 250-900 [facility] Sodium [Moles/volume] in Uri neOrdered By: Natividad Gregory on 04-02-2023 Sodium (U) [Moles/Vol] 79 mmol/L [facility] Comment on above: No reference range e stablished Thyrotropin [Units/volume] i n Serum or PlasmaOrdered By: Natividad Gregory on 04-02-2023 TSH Qn 5.76 m[IU]/L 0.45-5.33 [facility] Office Visiton 01-11-2023 Follow-up visit [id number] Hiram Madrid 1935 F Date Provider Department Center 01/11/2023 [facility] Family History Problem Relation Age of Onset Hypertension Mother Lupus Mother Coronary artery disease Mother Heart attack Mother Hypertension Father Aneurysm Father Coronary artery disease Father Hypertension Sister Lupus Sister Family Status - Relation Status Age at Mother Father Sister Level of Service:77763 [place] OFFICE/OUTPATIENT ESTABLISHED MOD MDM 30-39 MIN Normal [facility] Lab Reportson 12-23-2022 Lab Reports [id number] EF#1.00TIFF Normal [facility] Urology Office/Clinic Noteon 12-23-2022 Urology Office/Clinic [...] Pt presented to ER due to syncope. Crowley was found incidentally on CT. CT AP [...] Contact Information ABDULLAHI NOONAN, MIKAYLA Pereira, URL [address] [place] [address] [phone] Additional Instructions: 6 mos w/ renal fxn [...] Tab losartan 100 mg Tab Potassium Chloride (Ooe-Daeb-Gel 10), Oral, BID pravastatin 80 mg Tab [...] vaccine, (more content not included)... Normal [facility] Comment on above: Result Comment: Elec tronically Signed By: MIKAYLA WEISS PA-C\.br\Date and Time Signed: 12/23/22 12:13 EDT\.br\Electronically Co-Signed By: Jacquie Gan\.br\Date and Time Co-Signed: 12/22/22 12:27 EDT Ambulatory Visit Summaryon 1 02-21-2022 Ambulatory Visit Summary HIRAM MADRID :1935 Visit Date:12/22/2022 Ambulatory Visit Instructions Your Diagnosis Hydronephrosis, right Ureteral stenosis Tests Performed Urnls Dip Stick Auto w/o Microscopy POC 54159 US Renal -- Results Pending -- Please [...] 100 mg Tab) potassium chloride (Potassium Chloride (Asr-Faiv-Kgy 10)) pravastatin (pravastatin 80 mg Tab) Procedures [...] NOONAN, MIKAYLA Pereira Where: [facility] Patient Educationon 12-23-19 Patient Education Urology [...] Follow these instructions at home: ? Take cpwl-uot-skpuyof and prescription medicines only as told by [...] provider. Document Revised: 05/26/2020 Document Reviewed: 05/26/2020 [employer] Patient Education ? 2022 [employer]. Normal [facility] RAD - Ultrasound Reporton RAD - Ultrasound Report [id number] #1.00TIFF Normal [facility] Orders Onlyon 10-25-2022 Orders Only [id number] Hiram Madrid 1935 F Date Provider Department Center 10/25/2022 LESLY GASPAR SONIA Winkler [facility] Family History Problem Relation Age of Onset Hypertension Mother Lupus Mother Coronary artery disease Mother Heart attack Mother Hypertension Father Aneurysm Father Coronary artery disease Father Hypertension Sister Lupus Sister Family Status - Relation Status Age at Mother Father Sister Normal [facility] 37on 10-14-2022 38 Increase coreg/carvedilol to 25 mg twice a day- you have 12.5 mg tabs now so take 2 twice a day until this bottle is gone- your next refill will be the higher dose of 25 mg bid. Have labs drawn Normal [facility] Office Visiton 10-14-2022 Follow-up visit [id number] Hiram Madrid 1935 F Date Provider Department Center 10/14/2022 LESLY GASPAR SONIA [facility] Family History Problem Relation Age of Onset Hypertension Mother Lupus Mother Coronary artery disease Mother Heart attack Mother Hypertension Father Aneurysm Father Coronary artery disease Father Hypertension Sister Lupus Sister Family Status - Relation Status Age at Mother Father Sister Level of Service:48642 [place] OFFICE/OUTPATIENT ESTABLISHED MOD MDM 30-39 MIN Normal [facility] Alanine aminotransferase [En zymatic activity/volume] in Serum or PlasmaOrdered By: Camacho Cooper on 08-05-2022 ALT [Catalytic activity/Vol] 16 U/L 7-52 [facility] Albumin [Mass/volume] in Ser um or Plasma by Bromocresol green (BCG) dye binding methoOrdered By: Camacho Cooper on 08-05-2022 Albumin BCG dye [Mass/Vol] 4.4 g/dL 3.5-5.7 [facility] Alkaline phosphatase [Enzyma tic activity/volume] in Serum or PlasmaOrdered By: Camacho Cooper on 08-05-2022 ALP [Catalytic activity/Vol] 61 U/L 34-104 [facility] Aspartate aminotransferase [ Enzymatic activity/volume] in Serum or PlasmaOrdered By: Camacho Cooper on 08-05-2022 AST [Catalytic activity/Vol] 21 U/L 13-39 [facility] Automated erythrocytes count in urine sediment (number/area)Ordered By: Camacho Cooper on 08-05-2022 RBC Auto (Urine sed) [#/Area] 0-1 [HPF] 0-4 [facility] Automated leukocytes count i n urine sediment (number/area)Ordered By: Camacho Cooper on 08-05-2022 WBC Auto (Urine sed) [#/Area] 1-2 [HPF] 0-4 [facility] Basophils Auto (Bld) [#/Vol] Ordered By: Camacho Cooper on 08-05-2022 Basophils (Bld) [#/Vol] 0.1 10*3/uL 0.0-0.2 [facility] [facility] Bas[facility]/100 WBC Auto (Bld) Ordered By: Camacho Cooper on 08-05-2022 Basophils/100 WBC (Bld) 0.4 % . [facility] Bilirubin Test strip Ql (U)O rdered By: Camacho Cooper on 08-05-2022 Bilirubin Ql (U) Negative Negative [facility] Bilirubin.direct [Mass/volum e] in Serum or PlasmaOrdered By: Camacho Cooper on 08-05-2022 Bilirubin.direct [Mass/Vol] 0.10 mg/dL 0.03-0.18 [facility] Bilirubin.total [Mass/volume ] in Serum or PlasmaOrdered By: Camacho Cooper on 08-05-2022 Bilirubin [Mass/Vol] 0.7 mg/dL 0.3-1.0 [facility] Calcium [Mass/volume] in Ser um or PlasmaOrdered By: Camacho Cooper on 08-05-2022 Calcium [Mass/Vol] 9.7 mg/dL 8.6-10.3 [facility] Carbon dioxide, total [Moles /volume] in Serum or PlasmaOrdered By: Camacho Cooper on 08-05-2022 CO2 [Moles/Vol] 23.2 mmol/L 21.0-31.0 [facility] Chloride [Moles/volume] in S willa or PlasmaOrdered By: Camacho Cooper on 08-05-2022 Chloride [Moles/Vol] 87 mmol/L 98-107 [facility] Color Auto (U)Ordered By: Ender mikey Allison on 08-05-2022 Color (U) Yellow Yellow [facility] Creatinine [Mass/volume] in Serum or PlasmaOrdered By: Camacho Cooper on 08-05-2022 Creatinine [Mass/Vol] 1.03 mg/dL 0.60-1.20 [facility] Eosinophils Auto (Bld) [#/Vo l]Ordered By: Camacho Cooper on 08-05-2022 Eosinophils (Bld) [#/Vol] 0.1 10*3/uL 0.0-0.45 [facility] Eosinophils/100 WBC Auto (Bl d)Ordered By: Camacho Cooper on 08-05-2022 Eosinophils/100 WBC (Bld) 0.6 % . [facility] Erythrocyte distribution wid th Auto (RBC) [Ratio]Ordered By: Camacho Cooper on 08-05-2022 Erythrocyte distribution width (RBC) [Ratio] 13.6 % 11.9-15.3 [facility] Globulin Calc (S) [Mass/Vol] Ordered By: Camacho Cooper on 08-05-2022 Globulin (S) [Mass/Vol] 2.9 g/dL [facility] Glucose [Mass/volume] in Ser um or PlasmaOrdered By: Camacho Cooper on 08-05-2022 Glucose [Mass/Vol] 156 mg/dL 70-100 [facility] Comment on above: ADA recommended refe rence rangeRandom Glucose Reference Range is dependent on time and content of last meal. Glucose of more than 200 mg/dL in a nonstressed, ambulatory subject supports the diagnosis of Diabetes Mellitus. Hematocrit Auto (Bld) [Volum e fraction]Ordered By: Camacho Cooper on 08-05-2022 Hematocrit (Bld) [Volume fraction] 37.3 % 34.0-46.4 [facility] Hemoglobin [Mass/volume] in BloodOrdered By: Camacho Cooper on 08-05-2022 Hemoglobin (Bld) [Mass/Vol] 13.0 g/dL 11.8-15.4 [facility] Ketones Auto test strip (U) [Mass/Vol]Ordered By: Camacho Cooper on 08-05-2022 Ketones (U) [Mass/Vol] Negative Negative Fi [facility] Laboratory - UrinalysisOrder ed By: Camacho Cooper on 08-05-2022 Hyaline casts LM Ql (Urine sed) None seen [LPF] 0-8 [facility] Leukocytes [#/volume] correc sofiya for nucleated erythrocytes in Blood by Automated counOrdered By: Camacho Cooper on 08-05-2022 WBC corrected for nucl RBC Auto (Bld) [#/Vol] 14.2 10*3/uL 3.8-11.6 [facility] Lipase [Enzymatic activity/v olume] in Serum or PlasmaOrdered By: Camacho Cooper on 08-05-2022 Lipase [Catalytic activity/Vol] 23.0 U/L 11.0-82.0 [facility] Lymphocytes Auto (Bld) [#/Vo l]Ordered By: Camacho Cooper on 08-05-2022 Lymphocytes (Bld) [#/Vol] 3.1 10*3/uL 1.00-4.8 [facility] Lymphocytes/100 WBC Auto (Bl d)Ordered By: Camacho Cooper on 08-05-2022 Lymphocytes/100 WBC (Bld) 21.9 % . [facility] MCH Auto (RBC) [Entitic mass ]Ordered By: Camacho Cooper on 08-05-2022 MCH (RBC) [Entitic mass] 31.6 pg 24.7-34.3 [facility] MCHC Auto (RBC) [Mass/Vol]Or dered By: Camacho Cooper on 08-05-2022 MCHC (RBC) [Mass/Vol] 35.0 g/dL 32.0-35.0 [facility] MCV Auto (RBC) [Entitic vol] Ordered By: Camacho Cooper on 08-05-2022 MCV (RBC) [Entitic vol] 90.4 fL 80-100 [facility] Monocyte distribution width [Entitic volume] in Blood by AutomatedOrdered By: Camacho Cooper on 08-05-2022 Monocyte distribution width Auto (Bld) [Entitic vol] 20.58 % 0.00-20.00 [facility] Comment on above: For adults in ED, MD W > 20.0 may be associated with a higher risk of sepsis during the first 12 hrs of hospital admission Monocytes Auto (Bld) [#/Vol] Ordered By: Camacho Cooper on 08-05-2022 Monocytes (Bld) [#/Vol] 1.4 10*3/uL 0.0-0.8 [facility] Monocytes/100 WBC Auto (Bld) Ordered By: Camacho Cooper on 08-05-2022 Monocytes/100 WBC (Bld) 9.6 % . [facility] Neutrophils Auto (Bld) [#/Vo l]Ordered By: Camacho Cooper on 08-05-2022 Neutrophils (Bld) [#/Vol] 9.6 10*3/uL 1.8-7.7 [facility] Neutrophils/100 WBC Auto (Bl d)Ordered By: Camacho Cooper on 08-05-2022 Neutrophils/100 WBC (Bld) 67.5 % . [facility] Nitrite Test strip Ql (U)Ord ered By: Camacho Cooper on 08-05-2022 Nitrite Ql (U) Negative Negative [facility] No Panel InformationOrdered By: Camacho Cooper on 08-05-2022 Estimated GFR (CKD-EPI) 53.284 mL/Min [facility] Creatinine Clearance (Chem 35.13 [facility] Nucleated erythrocytes [Pres ence] in Blood by Automated countOrdered By: Camacho Cooper on 08-05-2022 Nucleated RBC Auto Ql (Bld) 0.1 /100{WBC} 0-0.5 [facility] Platelet mean volume Auto (B ld) [Entitic vol]Ordered By: Camacho Cooper on 08-05-2022 Platelet mean volume (Bld) [Entitic vol] 7.2 fL 6.3-10.7 [facility] Platelets Auto (Bld) [#/Vol] Ordered By: Camacho Cooper on 08-05-2022 Platelets (Bld) [#/Vol] 500 10*3/uL 150-450 [facility] Potassium [Moles/volume] in Serum or PlasmaOrdered By: Camacho Cooper on 08-05-2022 Potassium [Moles/Vol] 3.0 mmol/L 3.5-5.1 [facility] Protein Auto test strip (U) [Mass/Vol]Ordered By: Camacho Cooper on 08-05-2022 Protein (U) [Mass/Vol] Negative Negative Fi [facility] Protein [Mass/volume] in Ser um or PlasmaOrdered By: Camacho Cooper on 08-05-2022 Protein [Mass/Vol] 7.3 g/dL 6.4-8.9 [facility] RBC Auto (Bld) [#/Vol]Ordere d By: Camacho Cooper on 08-05-2022 RBC (Bld) [#/Vol] 4.13 10*6/uL 3.60-5.00 [facility] Serum or plasma albumin/glob ulin mass ratioOrdered By: Camacho Cooper on 08-05-2022 Albumin/Globulin [Mass ratio] 1.5 {ratio} [facility] Serum or plasma anion gap de terminationOrdered By: Camacho Cooper on 08-05-2022 Anion gap [Moles/Vol] 17.8 mmol/L 6.0-15.0 [facility] Serum or plasma non-glucuron idated bilirubin measurement (mass/volume)Ordered By: Camacho Cooper on 08-05-2022 Bilirubin.indirect [Mass/Vol] 0.6 mg/dL [facility] Sodium [Moles/volume] in Ser um or PlasmaOrdered By: Camacho Cooepr on 08-05-2022 Sodium [Moles/Vol] 125 mmol/L 136-145 [facility] Specific gravity Auto test s trip (U) [Rel density]Ordered By: Camacho Cooper on 08-05-2022 Specific gravity (U) [Rel density] 1.009 1.001-1.030 [facility] Squamous epithelial cells de tection in urine sediment by light microscopyOrdered By: Camacho Cooper on 08-05-2022 Epithelial cells.squamous LM Ql (Urine sed) 0-1 [HPF] 0-2 [facility] Troponin I.cardiac [Mass/vol ume] in Serum or Plasma by Detection limit <= 0.01 ng/Ordered By: Camacho Cooper on 08-05-2022 Troponin I.cardiac DL <= 0.01 ng/mL [Mass/Vol] 7.7 pg/mL 0.0-15.0 [facility] Urea nitrogen [Mass/volume] in Serum or PlasmaOrdered By: Camacho Cooper on 08-05-2022 Urea nitrogen [Mass/Vol] 12 mg/dL 7-25 [facility] Urine bacteria detection by automated methodOrdered By: Camacho Cooper on 08-05-2022 Bacteria Auto Ql (U) None seen None Seen [facility] Urine clarity by refractomet ry automatedOrdered By: Camacho Cooper on 08-05-2022 Clarity Refractometry automated (U) Cloudy Clear [facility] Urine glucose measurement by automated test strip (mass/volume)Ordered By: Camacho Cooper on 08-05-2022 Glucose Auto test strip (U) [Mass/Vol] Normal mg/dL Normal [facility] Urine hemoglobin detection b y automated test stripOrdered By: Camacho Cooper on 08-05-2022 Hemoglobin Auto test strip Ql (U) Negative Negative [facility] Urine leukocyte esterase det ection by automated test stripOrdered By: Camacho Cooper on 08-05-2022 Leukocyte esterase Auto test strip Ql (U) 1+ Negative [facility] Urobilinogen Auto test strip (U) [Mass/Vol]Ordered By: Camacho Cooper on 08-05-2022 Urobilinogen (U) [Mass/Vol] Normal mg/dL Normal [facility] WBC Auto (Bld) [#/Vol]Ordere d By: Camacho Cooper on 08-05-2022 WBC (Bld) [#/Vol] 14.2 10*3/uL 3.8-11.6 [facility] pH Auto test strip (U)Ordere d By: Camacho Cooper on 08-05-2022 pH (U) 7.0 [pH] 5.0-9.0 [facility] BNPon 06-13-2022 Natriuretic peptide B (Bld) [Mass/Vol] 142.0 pg/mL Normal <=1,800.0 [facility] Comment on above: Performed By: #### T SH, BMP #### [facility] [address] [place] [address] Dr. Tasha Dodson CBC AUTO DIFFon 06-13-2022 BASO # 0.1 103/ul Normal 0.0-0.1 [facility] Comment on above: Performed By: #### T SH, BMP #### [facility] [address] [place] [address] Dr. Tasha Dodson Basophils/100 WBC (Bld) 1.0 % Normal 0.2-2.0 [facility] Comment on above: Performed By: #### T SH, BMP #### [facility] [address] [place] [address] Dr. Tasha Dodson EO # 0.3 103/ul Normal 0.0-0.7 [facility] Comment on above: Performed By: #### T SH, BMP #### [facility] [address] [place] [address] Dr. Tasha Dodson Eosinophils/100 WBC (Bld) 2.6 % Normal 0.9-7.0 [facility] Comment on above: Performed By: #### T SH, BMP #### [facility] [address] [place] [address] Dr. Tasha Dodson Erythrocyte distribution width (RBC) [Ratio] 13.4 % Normal 11.0-15.0 [facility] Comment on above: Performed By: #### T SH, BMP #### [facility] [address] [place] [address] Dr. Tasha Dodson Hematocrit (Bld) [Volume fraction] 39.5 % Normal 36.0-48.0 [facility] Comment on above: Performed By: #### T SH, BMP #### [facility] [address] [place] [address] Dr. Tasha Dodson Hemoglobin (Bld) [Mass/Vol] 13.1 g/dL Normal 12.0-16.0 [facility] Comment on above: Performed By: #### T SH, BMP #### [facility] [address] [place] [address] Dr. Tasha Dodson IG # 0.07 10e3/ul Critically high 0.00-0.03 [facility] Comment on above: Performed By: #### T SH, BMP #### [facility] [address] [place] [address] Dr. Tasha Dodson IG % 0.6 % Critically high 0.0-0.5 [facility] Comment on above: Performed By: #### T JESI, BMP #### [facility] [address] [place] [address] Dr. Tasha Dodson LYMPH # 2.5 103/ul Normal 1.2-3.8 [facility] Comment on above: Performed By: #### T JESI, BMP #### [facility] [address] [place] [address] Dr. Tasha Dodson Lymphocytes/100 WBC (Bld) 22.9 % Normal 20.5-60.0 [facility] Comment on above: Performed By: #### T JESI, BMP #### [facility] [address] [place] [address] Dr. Tasha Dodson MANUAL DIFF REQ NO Normal [facility] Comment on above: Performed By: #### T JESI, BMP #### [facility] [address] [place] [address] Dr. Tasha Dodson MCH (RBC) [Entitic mass] 30.7 pg Normal 26.7-34.0 [facility] Comment on above: Performed By: #### T SH, BMP #### [facility] [address] [place] [address] Dr. Tasha Dodson MCHC (RBC) [Mass/Vol] 33.2 g/dL Normal 29.9-35.2 [facility] Comment on above: Performed By: #### T JESI, BMP #### [facility] [address] [place] [address] Dr. Tasha Dodson MCV (RBC) [Entitic vol] 92.5 fL Normal 81.0-99.0 [facility] Comment on above: Performed By: #### T SH, BMP #### [facility] [address] [place] [address] Dr. Tasha Dodson MONO # 0.8 103/ul Normal 0.3-0.8 [facility] Comment on above: Performed By: #### T SH, BMP #### [facility] [address] [place] [address] Dr. Tasha Dodson Monocytes/100 WBC (Bld) 7.0 % Normal 1.7-12.0 [facility] Comment on above: Performed By: #### T SH, BMP #### [facility] [address] [place] [address] Dr. Tasha Dodson NEUT # 7.2 103/ul Critically high 1.4-6.5 [facility] Comment on above: Performed By: #### T SH, BMP #### [facility] [address] [place] [address] Dr. Tasha Dodson Neutrophils/100 WBC (Bld) 65.9 % Normal 43.0-75.0 [facility] Comment on above: Performed By: #### T SH, BMP #### [facility] [address] [place] [address] Dr. Tasha Dodson Platelet mean volume (Bld) [Entitic vol] 8.0 fL Critically low 9.5-13.5 [facility] Comment on above: Performed By: #### T SH, BMP #### [facility] [address] [place] [address] Dr. Tasha Dodson PLT 449 103/ul Normal 150-450 [facility] Comment on above: Performed By: #### T SH, BMP #### [facility] [address] [place] [address] Dr. Tasha Dodson RBC 4.27 106/ul Normal 4.20-5.40 [facility] Comment on above: Performed By: #### T SH, BMP #### [facility] [address] [place] [address] Dr. Tasha Dodson WBC 10.9 103/ul Normal 4.0-11.0 [facility] Comment on above: Performed By: #### T SH, BMP #### [facility] [address] [place] [address] Dr. Tasha Dodson FREE THYROXINE INDEX T7on FTI 3.67 Normal 1.30-4.50 [facility] Comment on above: Performed By: #### T SH, BMP #### [facility] [address] [place] [address] Dr. Tasha Dodson T3U 36.0 % Normal 30.0-39.0 [facility] Comment on above: Performed By: #### T SH, BMP #### [facility] [address] [place] [address] Dr. Tasha Dodson T4 [Mass/Vol] 10.20 ug/dL Normal 4.80-13.90 [facility] Comment on above: Performed By: #### T SH, BMP #### [facility] [address] [place] [address] Dr. Tasha Dodson PROF CHEM 8 (BAS METB)on Anion gap [Moles/Vol] 13.8 mmol/L Normal Th [facility] Comment on above: Performed By: #### T SH, BMP #### [facility] [address] [place] [address] Dr. Tasha Dodson Calcium [Mass/Vol] 9.8 mg/dL Normal 8.5-10.1 [facility] Comment on above: Performed By: #### T SH, BMP #### [facility] [address] [place] [address] Dr. Tasha Dodson Chloride [Moles/Vol] 95 mmol/L Critically low 98-107 [facility] Comment on above: Performed By: #### T SH, BMP #### [facility] [address] [place] [address] Dr. Tasha Dodson CO2 [Moles/Vol] 30.5 mmol/L Normal 21.0-32.[address] [facility] Comment on above: Performed By: #### T SH, BMP #### [facility] [address] [address] [address] Tasha Dodson Creatinine [Mass/Vol] 0.78 mg/dL Normal 0.55-1.02 [facility] Comment on above: Performed By: #### T SH, BMP #### [facility] [address] [address] [address] Tasha Dodson EGFR-AF MONTSERRATIAN >60 Normal >=[address] [facility] Comment on above: Performed By: #### T SH, BMP #### [facility] [address] [address] [address] Tasha Dodson EGFR-NON AF MONTSERRATIAN >60 Normal >=60 [facility] Comment on above: Performed By: #### T SH, BMP #### [facility] [address] [place] [address] Dr. Tasha Dodson Glucose [Mass/Vol] 108 mg/dL Critically high 74-106 [facility] Comment on above: Performed By: #### T SH, BMP #### [facility] [address] [address] [address] Tasha Dodson Potassium [Moles/Vol] 3.3 mmol/L Critically low 3.5-5.1 [facility] Comment on above: Performed By: #### T SH, BMP #### [facility] [address] [address] [address] Tasha Dodson Sodium [Moles/Vol] 136 mmol/L Normal 136-145 [facility] Comment on above: Performed By: #### T SH, BMP #### [facility] [address] [address] [address] Tasha Dodson Urea nitrogen [Mass/Vol] 11.0 mg/dL Normal 7.0-18.0 [facility] Comment on above: Performed By: #### T SH, BMP #### [facility] [address] [address] [address] Tasha Dodson Urea nitrogen/Creatinine [Mass ratio] 14.1 mg/mg Normal [facility] Comment on above: Performed By: #### T SH, BMP #### [facility] [address] [place] [address] Dr. Tasha Dodson TSHon 06-13-2022 TSH 2.583 uIU/mL Normal 0.358-3.740 [facility] Comment on above: Performed By: #### T SH, BMP #### [facility] [address] [place] [address] Dr. 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 Comment on above: Performed By: #### T SH, BMP #### [facility] [address] [place] [address] Dr. Tasha Dodson Clarity (U) CLEAR Normal CLEAR [facility] Comment on above: Performed By: #### T SH, BMP #### [facility] [address] [place] [address] Dr. Tasha Dodson Color (U) LT. YELLOW Normal YELLOW [facility] Comment on above: Performed By: #### T SH, BMP #### [facility] [address] [place] [address] Dr. Tasha Dodson Glucose Ql (U) Negative Normal NEGATIVE [facility] Comment on above: Performed By: #### T SH, BMP #### [facility] [address] [place] [address] Dr. Tasha Dodson Hemoglobin Ql (U) Negative Normal NEGATIVE [facility] Comment on above: Performed By: #### T SH, BMP #### [facility] [address] [place] [address] Dr. Tasha Dodson Ketones Ql (U) Negative Normal NEGATIVE [facility] Comment on above: Performed By: #### T SH, BMP #### [facility] [address] [place] [address] Dr. Tasha Dodson LEUKOCYTES Negative Normal NEGATIVE [facility] Comment on above: Performed By: #### T SH, BMP #### [facility] [address] [place] [address] Dr. Tasha Dodson Nitrite Ql (U) Negative Normal NEGATIVE [facility] Comment on above: Performed By: #### T SH, BMP #### [facility] [address] [place] [address] Dr. Tasha Dodson pH (U) 7.0 [pH] Normal 5-9 [facility] Comment on above: Performed By: #### T SH, BMP #### [facility] [address] [place] [address] Dr. Tasha Dodson SPEC GRAVITY 1.010 Normal 1.005-<=1.02 5 [facility] Comment on above: Performed By: #### T SH, BMP #### [facility] [address] [place] [address] Dr. Tasha Dodson UA PROTEIN Negative Normal NEGATIVE/ TRACE [facility] Comment on above: Performed By: #### T SH, BMP #### [facility] [address] [place] [address] Dr. Tasha Dodson UR MICRO IND NOT INDICATED Normal [facility] Comment on above: Performed By: #### T SH, BMP #### [facility] [address] [place] [address] Dr. Tasha Dodson Urobilinogen Qn (U) 0.2 {Juan'U}/dL Normal 0.2 - 1. 0 [facility] Comment on above: Performed By: #### T SH, BMP #### [facility] [address] [place] [address] Dr. Tasha Dodson ECHOCARDIO M/2D COMPLETEon 0 04-18-2022 ECHOCARDIO M/2D COMPLETE Patient: HIRAM MADRID Exam Date: 04/18/2022 : 1935 Gender:F Ordering : DR VALERIE DARDEN M.D. Admission #: [id number] Family : DR MAMI DANIELS . Order #: [id number] CLICK HERE TO VIEW EXAM ECHOCARDIOGRAM REPORT [...] on 04/19/2022 at 18:55 Normal [facility] Office Visiton 04-04-2022 Follow-up visit [id number] Hiram Madrid 1935 F Date Provider Department Center 04/04/2022 [facility] [place] [facility] Family History Problem Relation Age of Onset Hypertension Mother Lupus Mother Coronary artery disease Mother Heart attack Mother Hypertension Father Aneurysm Father Coronary artery disease Father Hypertension Sister Lupus Sister Family Status - Relation Status Age at Mother Father Sister Level of Service:15433 NC OFFICE/OUTPATIENT ESTABLISHED MOD MDM 30-39 MIN Reason for Visit and Comments: Hyperlipidemia [182] Hypertension [462314] carotid artery stenosis [Other] 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 Tasha Dodson Basophils/100 WBC (Bld) 0.6 % Normal 0.2-2.0 [facility] Comment on above: Performed By: #### C BC #### [facility] [address] [place] [address] Dr. Tasha Dodson EO # 0.1 103/ul Normal 0.0-0.7 [facility] Comment on above: Performed By: #### C BC #### [facility] [address] [place] [address] Dr. Tasha Dodson Eosinophils/100 WBC (Bld) 0.9 % Normal 0.9-7.0 [facility] Comment on above: Performed By: #### C BC #### [facility] [address] [place] [address] Dr. Tasha Dodson Erythrocyte distribution width (RBC) [Ratio] 13.0 % Normal 11.0-15.0 [facility] Comment on above: Performed By: #### C BC #### [facility] [address] [place] [address] Dr. Tasha Dodson Hematocrit (Bld) [Volume fraction] 38.5 % Normal 36.0-48.0 [facility] Comment on above: Performed By: #### C BC #### [facility] [address] [place] [address] Dr. Tasha Dodson Hemoglobin (Bld) [Mass/Vol] 13.4 g/dL Normal 12.0-16.0 [facility] Comment on above: Performed By: #### C BC #### [facility] [address] [place] [address] Dr. Tasha Dodson IG # 0.07 10e3/ul Critically high 0.00-0.03 [facility] Comment on above: Performed By: #### C BC #### [facility] [address] [place] [address] Dr. Tasha Dodson IG % 0.5 % Normal 0.0-0.5 [facility] Comment on above: Performed By: #### C BC #### [facility] [address] [place], [place] [id number] Dr. Tasha Dodson LYMPH # 2.8 103/ul Normal 1.2-3.8 [facility] Comment on above: Performed By: #### C BC #### [facility] [address] [place] [address] Dr. Tasha Dodson Lymphocytes/100 WBC (Bld) 20.5 % Normal 20.5-60.0 [facility] Comment on above: Performed By: #### C BC #### [facility] [address] [place] [address] Dr. Tasha Dodson MANUAL DIFF REQ NO Normal [facility] Comment on above: Performed By: #### C BC #### [facility] [address] [place] [address] Dr. Tasha Dodson MCH (RBC) [Entitic mass] 30.7 pg Normal 26.7-34.0 [facility] Comment on above: Performed By: #### C BC #### [facility] [address] [place] [address] Dr. Tasha Dodson MCHC (RBC) [Mass/Vol] 34.8 g/dL Normal 29.9-35.2 [facility] Comment on above: Performed By: #### C BC #### [facility] [address] [place] [address] Dr. Tasha Dodson MCV (RBC) [Entitic vol] 88.3 fL Normal 81.0-99.0 [facility] Comment on above: Performed By: #### C BC #### [facility] [address] [place] [address] Dr. Tasha Dodson MONO # 1.0 103/ul Critically high 0.3-0.8 [facility] Comment on above: Performed By: #### C BC #### [facility] [address] [place] [address] Dr. Tasha Dodson Monocytes/100 WBC (Bld) 7.4 % Normal 1.7-12.0 [facility] Comment on above: Performed By: #### C BC #### [facility] [address] [place] [address] Dr. Tasha Dodson NEUT # 9.5 103/ul Critically high 1.4-6.5 [facility] Comment on above: Performed By: #### C BC #### [facility] [address] [place] [address] Dr. Tasha Dodson Neutrophils/100 WBC (Bld) 70.1 % Normal 43.0-75.0 [facility] Comment on above: Performed By: #### C BC #### [facility] [address] [place] [address] Dr. Tasha Dodson Platelet mean volume (Bld) [Entitic vol] 8.0 fL Critically low 9.5-13.5 [facility] Comment on above: Performed By: #### C BC #### [facility] [address] [place] [address] Dr. Tasha Dodson PLT 492 103/ul Critically high 150-450 [facility] Comment on above: Performed By: #### C BC #### [facility] [address] [place] [address] Dr. Tasha Dodson RBC 4.36 106/ul Normal 4.20-5.40 [facility] Comment on above: Performed By: #### C BC #### [facility] [address] [place] [address] Dr. Tasha Dodson WBC 13.5 103/ul Critically high 4.0-11.[address] [facility] Comment on above: Performed By: #### C BC #### [facility] [address] [place] [address] Dr. Tasha Dodson PROF 14(COMP METB)on 022 Albumin [Mass/Vol] 3.8 g/dL Normal 3.4-5.0 [facility] Comment on above: Performed By: #### T JESI BMP #### [facility] [address] [place] [address] Dr. Tasha Dodson Albumin/Globulin [Mass ratio] 0.9 {ratio} Normal [facility] Comment on above: Performed By: #### T JESI, BMP #### [facility] [address] [place] [address] Dr. Tasha Dodson ALP [Catalytic activity/Vol] 60 U/L Normal 46-116 [facility] Comment on above: Performed By: #### T JESI, BMP #### [facility] [address] [place] [address] Dr. Tasha Dodson ALT [Catalytic activity/Vol] 26 U/L Normal 14-59 [facility] Comment on above: Performed By: #### T JESI, BMP #### [facility] [address] [address] [address] Tasha Dodosn Anion gap [Moles/Vol] 8.4 mmol/L Normal [facility] Comment on above: Performed By: #### T JESI, BMP #### [facility] [address] [place] [address] Dr. Tasha Dodson AST [Catalytic activity/Vol] 19 U/L Normal 15-37 [facility] Comment on above: Performed By: #### T JESI, BMP #### [facility] [address] [place] [address] Dr. Tasha Dodson Bilirubin [Mass/Vol] 0.4 mg/dL Normal 0.2-1.0 [facility] Comment on above: Performed By: #### T JESI, BMP #### [facility] [address] [place] [address] Dr. Tasha Dodson Calcium [Mass/Vol] 10.1 mg/dL Normal 8.5-10.1 [facility] Comment on above: Performed By: #### T JESI, BMP #### [facility] [address] [place] [address] Dr. Tasha Dodson Chloride [Moles/Vol] 92 mmol/L Critically low 98-107 [facility] Comment on above: Performed By: #### T JESI, BMP #### [facility] [address] [place] [address] Dr. Tasha Dodson CO2 [Moles/Vol] 33.8 mmol/L Critically high 21.0-32.0 [facility] Comment on above: Performed By: #### T JESI, BMP #### [facility] [address] [place] [address] Dr. Tasha Dodson Creatinine [Mass/Vol] 0.67 mg/dL Normal 0.55-1.02 [facility] Comment on above: Performed By: #### T SH, BMP #### [facility] [address] [place] [address] Dr. Tasha Dodson EGFR-AF MONTSERRATIAN >60 Normal >=[address] [facility] Comment on above: Performed By: #### T SH, BMP #### [facility] [address] [place] [address] Dr. Tasha Dodson EGFR-NON AF MONTSERRATIAN >60 Normal >=60 [facility] Comment on above: Performed By: #### T SH, BMP #### [facility] [address] [place] [address] Dr. Tasha Dodson Globulin (S) [Mass/Vol] 4.1 g/dL Normal [facility] Comment on above: Performed By: #### T SH, BMP #### [facility] [address] [place] [address] Dr. Tasha Dodson Glucose [Mass/Vol] 106 mg/dL Normal 74-106 [facility] Comment on above: Performed By: #### T SH, BMP #### [facility] [address] [place] [address] Dr. Tasha Dodson Potassium [Moles/Vol] 3.2 mmol/L Critically low 3.5-5.1 [facility] Comment on above: Performed By: #### T SH, BMP #### [facility] [address] [place] [address] Dr. Tasha Dodson Protein [Mass/Vol] 7.9 g/dL Normal 6.4-8.2 [facility] Comment on above: Performed By: #### T SH, BMP #### [facility] [address] [place] [address] Dr. Tasha Dodson Sodium [Moles/Vol] 131 mmol/L Critically low 136-145 [facility] Comment on above: Performed By: #### T SH, BMP #### [facility] [address] [place] [address] Dr. Tasha Dodson Urea nitrogen [Mass/Vol] 10.0 mg/dL Normal 7.0-18.0 [facility] Comment on above: Performed By: #### T SH, BMP #### [facility] [address] [place] [address] Dr. Tasha Dodson Urea nitrogen/Creatinine [Mass ratio] 14.9 mg/mg Normal [facility] Comment on above: Performed By: #### T SH, BMP #### [facility] [address] [place] [address] Dr. Tasha Dodson CBC AUTO DIFFon 12-29-2021 BASO # 0.1 103/ul Normal 0.0-0.1 [facility] Comment on above: Performed By: #### C BC #### [facility] [address] [place] [address] Dr. Tasha Dodson Basophils/100 WBC (Bld) 0.5 % Normal 0.2-2.0 [facility] Comment on above: Performed By: #### C BC #### [facility] [address] [place] [address] Dr. Tasha Dodson EO # 0.1 103/ul Normal 0.0-0.7 [facility] Comment on above: Performed By: #### C BC #### [facility] [address] [place] [address] Dr. Tasha Dodson Eosinophils/100 WBC (Bld) 0.4 % Critically low 0.9-7.0 [facility] Comment on above: Performed By: #### C BC #### [facility] [address] [place] [address] Dr. Tasha Dodson Erythrocyte distribution width (RBC) [Ratio] 13.0 % Normal 11.0-15.0 [facility] Comment on above: Performed By: #### C BC #### [facility] [address] [place] [address] Dr. Tasha Dodson Hematocrit (Bld) [Volume fraction] 34.0 % Critically low 36.0-48.0 [facility] Comment on above: Performed By: #### C BC #### [facility] [address] [place] [address] Dr. Tasha Dodson Hemoglobin (Bld) [Mass/Vol] 12.0 g/dL Normal 12.0-16.0 [facility] Comment on above: Performed By: #### C BC #### [facility] [address] [place] [address] Dr. Tasha Dodson IG # 0.06 10e3/ul Critically high 0.00-0.03 [facility] Comment on above: Performed By: #### C BC #### [facility] [address] [place] [address] Dr. Tasha Dodson IG % 0.4 % Normal 0.0-0.5 [facility] Comment on above: Performed By: #### C BC #### [facility] [address] [place] [address] Dr. Tasha Dodson LYMPH # 2.5 103/ul Normal 1.2-3.8 [facility] Comment on above: Performed By: #### C BC #### [facility] [address] [place] [address] Dr. Tasha Dodson Lymphocytes/100 WBC (Bld) 17.4 % Critically low 20.5-60.0 [facility] Comment on above: Performed By: #### C BC #### [facility] [address] [place] [address] Dr. Tasha Dodson MANUAL DIFF REQ NO Normal [facility] Comment on above: Performed By: #### C BC #### [facility] [address] [place] [address] Dr. Tasha Dodson MCH (RBC) [Entitic mass] 31.0 pg Normal 26.7-34.0 [facility] Comment on above: Performed By: #### C BC #### [facility] [address] [place] [address] Dr. Tasha Dodson MCHC (RBC) [Mass/Vol] 35.3 g/dL Critically high 29.9-35.2 [facility] Comment on above: Performed By: #### C BC #### [facility] [address] [place] [address] Dr. Tasha Dodson MCV (RBC) [Entitic vol] 87.9 fL Normal 81.0-99.0 [facility] Comment on above: Performed By: #### C BC #### [facility] [address] [address] [address] Tasha Dodson MONO # 1.0 103/ul Critically high 0.3-0.8 [facility] Comment on above: Performed By: #### C BC #### [facility] [address] [address] [address] Tasha Dodson Monocytes/100 WBC (Bld) 6.9 % Normal 1.7-12.0 [facility] Comment on above: Performed By: #### C BC #### [facility] [address] [place] [address] Dr. Tasha Dodson NEUT # 10.8 103/ul Critically high 1.4-6.[address] [facility] Comment on above: Performed By: #### C BC #### [facility] [address] [place] [address] Dr. Tasha Dodson Neutrophils/100 WBC (Bld) 74.4 % Normal 43.0-75.0 [facility] Comment on above: Performed By: #### C BC #### [facility] [address] [place] [address] Dr. Tasha Dosdon Platelet mean volume (Bld) [Entitic vol] 8.4 fL Critically low 9.5-13.5 [facility] Comment on above: Performed By: #### C BC #### [facility] [address] [place] [address] Dr. Tasha Dodson PLT 370 103/ul Normal 150-450 [facility] Comment on above: Performed By: #### C BC #### [facility] [address] [place] [address] Dr. Tasha Dodson RBC 3.87 106/ul Critically low 4.20-5.40 [facility] Comment on above: Performed By: #### C BC #### [facility] [address] [place] [address] Dr. Tasha Dodson WBC 14.5 103/ul Critically high 4.0-11.[address] [facility] Comment on above: Performed By: #### C BC #### [facility] [address] [place] [address] Dr. Tasha Dodson PROF 14(COMP METB)on 022 Albumin [Mass/Vol] 2.8 g/dL Critically low 3.4-5.0 Th e [facility] Comment on above: Performed By: #### T SH, BMP #### [facility] [address] [place] [address] Dr. Tasha Dodson Albumin/Globulin [Mass ratio] 0.9 {ratio} Normal [facility] Comment on above: Performed By: #### T JESI, BMP #### [facility] [address] [place] [address] Dr. Tasha Dodson ALP [Catalytic activity/Vol] 51 U/L Normal 46-116 [facility] Comment on above: Performed By: #### T SH, BMP #### [facility] [address] [place] [address] Dr. Tasha Dodson ALT [Catalytic activity/Vol] 15 U/L Normal 14-59 [facility] Comment on above: Performed By: #### T JESI, BMP #### [facility] [address] [place] [address] Dr. Tasha Dodson Anion gap [Moles/Vol] 9.7 mmol/L Normal [facility] Comment on above: Performed By: #### T JESI, BMP #### [facility] [address] [place] [address] Dr. Tasha Dodson AST [Catalytic activity/Vol] 15 U/L Normal 15-37 [facility] Comment on above: Performed By: #### T SH, BMP #### [facility] [address] [place] [address] Dr. Tasha Dodson Bilirubin [Mass/Vol] 0.4 mg/dL Normal 0.2-1.0 [facility] Comment on above: Performed By: #### T SH, BMP #### [facility] [address] [place] [address] Dr. Tasha Dodson Calcium [Mass/Vol] 8.6 mg/dL Normal 8.5-10.1 [facility] Comment on above: Performed By: #### T SH, BMP #### [facility] [address] [place] [address] Dr. Tasha Dodson Chloride [Moles/Vol] 97 mmol/L Critically low 98-107 [facility] Comment on above: Performed By: #### T SH, BMP #### [facility] [address] [place] [address] Dr. Tasha Dodson CO2 [Moles/Vol] 25.8 mmol/L Normal 21.0-32.[address] [facility] Comment on above: Performed By: #### T SH, BMP #### [facility] [address] [place] [address] Dr. Tasha Dodson Creatinine [Mass/Vol] 0.52 mg/dL Critically low 0.55-1.02 [facility] Comment on above: Performed By: #### T SH, BMP #### [facility] [address] [place] [address] Dr. Tasha Dodson EGFR-AF MONTSERRATIAN >60 Normal >=[address] [facility] Comment on above: Performed By: #### T SH, BMP #### [facility] [address] [place] [address] Dr. Tasha Dodson EGFR-NON AF MONTSERRATIAN >60 Normal >=60 [facility] Comment on above: Performed By: #### T JESI, BMP #### [facility] [address] [place] [address] Dr. Tasha Dodson Globulin (S) [Mass/Vol] 3.2 g/dL Normal [facility] Comment on above: Performed By: #### T SH, BMP #### [facility] [address] [place] [address] Dr. Tasha Dodson Glucose [Mass/Vol] 117 mg/dL Critically high 74-106 [facility] Comment on above: Performed By: #### T SH, BMP #### [facility] [address] [place] [address] Dr. Tasha Dodson Potassium [Moles/Vol] 3.5 mmol/L Normal 3.5-5.1 [facility] Comment on above: Performed By: #### T SH, BMP #### [facility] [address] [place] [address] Dr. Tasha Dodson Protein [Mass/Vol] 6.0 g/dL Critically low 6.4-8.2 [facility] Comment on above: Performed By: #### T SH, BMP #### [facility] [address] [place] [address] Dr. Tasha Dodson Sodium [Moles/Vol] 129 mmol/L Critically low 136-145 Th [facility] Comment on above: Performed By: #### T JESI, BMP #### [facility] [address] [place] [address] Dr. Tasha Dodson Urea nitrogen [Mass/Vol] 4.0 mg/dL Critically low 7.0-18. 0 [facility] Comment on above: Performed By: #### T JESI, BMP #### [facility] [address] [place] [address] Dr. Tasha Dodson Urea nitrogen/Creatinine [Mass ratio] 7.7 mg/mg Normal [facility] Comment on above: Performed By: #### T JESI, BMP #### [facility] [address] [place] [address] Dr. Tasha Dodson CBC AUTO DIFFon 12-28-2021 BASO # 0.1 103/ul Normal 0.0-0.1 [facility] Comment on above: Performed By: #### C BC #### [facility] [address] [place] [address] Dr. Tasha Dodson Basophils/100 WBC (Bld) 0.4 % Normal 0.2-2.0 [facility] Comment on above: Performed By: #### C BC #### [facility] [address] [place] [address] Dr. Tasha Dodson EO # 0.1 103/ul Normal 0.0-0.7 [facility] Comment on above: Performed By: #### C BC #### [facility] [address] [place] [address] Dr. Tasha Dodson Eosinophils/100 WBC (Bld) 0.4 % Critically low 0.9-7.0 [facility] Comment on above: Performed By: #### C BC #### [facility] [address] [place] [address] Dr. Tasha Dodson Erythrocyte distribution width (RBC) [Ratio] 12.9 % Normal 11.0-15.0 [facility] Comment on above: Performed By: #### C BC #### [facility] [address] [place] [address] Dr. Tasha Dodson Hematocrit (Bld) [Volume fraction] 34.2 % Critically low 36.0-48.0 [facility] Comment on above: Performed By: #### C BC #### [facility] [address] [place] [address] Dr. Tasha Dodson Hemoglobin (Bld) [Mass/Vol] 12.4 g/dL Normal 12.0-16.0 [facility] Comment on above: Performed By: #### C BC #### [facility] [address] [place] [address] Dr. Tasha Dodson IG # 0.09 10e3/ul Critically high 0.00-0.03 [facility] Comment on above: Performed By: #### C BC #### [facility] [address] [place] [address] Dr. Tasha Dodson IG % 0.6 % Critically high 0.0-0.5 [facility] Comment on above: Performed By: #### C BC #### [facility] [address] [place] [address] Dr. Tasha Dodson LYMPH # 2.2 103/ul Normal 1.2-3.8 [facility] Comment on above: Performed By: #### C BC #### [facility] [address] [place] [address] Dr. Tasha Dodson Lymphocytes/100 WBC (Bld) 13.6 % Critically low 20.5-60.0 [facility] Comment on above: Performed By: #### C BC #### [facility] [address] [place] [address] Dr. Tasha Dodson MANUAL DIFF REQ NO Normal [facility] Comment on above: Performed By: #### C BC #### [facility] [address] [place] [address] Dr. Tasha Dodson MCH (RBC) [Entitic mass] 31.2 pg Normal 26.7-34.0 [facility] Comment on above: Performed By: #### C BC #### [facility] [address] [place] [address] Dr. Tasha Dodson MCHC (RBC) [Mass/Vol] 36.3 g/dL Critically high 29.9-35.2 [facility] Comment on above: Performed By: #### C BC #### [facility] [address] [place] [address] Dr. Tasha Dodson MCV (RBC) [Entitic vol] 85.9 fL Normal 81.0-99.0 [facility] Comment on above: Performed By: #### C BC #### [facility] [address] [place] [address] Dr. Tasha Dodson MONO # 1.3 103/ul Critically high 0.3-0.8 [facility] Comment on above: Performed By: #### C BC #### [facility] [address] [place] [address] Dr. Tasha Dodson Monocytes/100 WBC (Bld) 7.8 % Normal 1.7-12.0 [facility] Comment on above: Performed By: #### C BC #### [facility] [address] [place] [address] Dr. Tasha Dodson NEUT # 12.4 103/ul Critically high 1.4-6.[address] [facility] Comment on above: Performed By: #### C BC #### [facility] [address] [place] [address] Dr. Tasha Dodson Neutrophils/100 WBC (Bld) 77.2 % Critically high 43.0-75.0 [facility] Comment on above: Performed By: #### C BC #### [facility] [address] [place] [address] Dr. Tasha Dodson Platelet mean volume (Bld) [Entitic vol] 8.6 fL Critically low 9.5-13.5 [facility] Comment on above: Performed By: #### C BC #### [facility] [address] [place] [address] Dr. Tasha Dodson PLT 385 103/ul Normal 150-450 [facility] Comment on above: Performed By: #### C BC #### [facility] [address] [place] [address] Dr. Tasha Dodson RBC 3.98 106/ul Critically low 4.20-5.40 [facility] Comment on above: Performed By: #### C BC #### [facility] [address] [place] [address] Dr. Tasha Dodson WBC 16.1 103/ul Critically high 4.0-11.[address] [facility] Comment on above: Performed By: #### C BC #### [facility] [address] [place] [address] Dr. Tasha Dodson PROF 14(COMP METB)on 022 Albumin [Mass/Vol] 3.2 g/dL Critically low 3.4-5.0 [facility] Comment on above: Performed By: #### T SH, BMP #### [facility] Laboratory [address] [place] [address] Dr. Tasha Dodson Albumin/Globulin [Mass ratio] 1.0 {ratio} Normal [facility] Comment on above: Performed By: #### T SH, BMP #### [facility] [address] [place] [address] Dr. Tasha Dodson ALP [Catalytic activity/Vol] 51 U/L Normal 46-116 The [facility] Comment on above: Performed By: #### T SH, BMP #### [facility] [address] [place] [address] Dr. Tasha Dodson ALT [Catalytic activity/Vol] 17 U/L Normal 14-59 [facility] Comment on above: Performed By: #### T SH, BMP #### [facility] [address] [place] [address] Dr. Tasha Dodson Anion gap [Moles/Vol] 10.5 mmol/L Normal [facility] Comment on above: Performed By: #### T SH, BMP #### [facility] [address] [place] [address] Dr. Tasha Dodson AST [Catalytic activity/Vol] 18 U/L Normal 15-37 [facility] Comment on above: Performed By: #### T SH, BMP #### [facility] [address] [place] [address] Dr. Tasha Dodson Bilirubin [Mass/Vol] 0.4 mg/dL Normal 0.2-1.0 [facility] Comment on above: Performed By: #### T SH, BMP #### [facility] [address] [place] [address] Dr. Tasha Dodson Calcium [Mass/Vol] 8.3 mg/dL Critically low 8.5-10.1 [facility] Comment on above: Performed By: #### T SH, BMP #### [facility] [address] [place] [address] Dr. Tasha Dodson Chloride [Moles/Vol] 96 mmol/L Critically low 98-107 [facility] Comment on above: Performed By: #### T SH, BMP #### [facility] [address] [place] [address] Dr. Tasha Dodson CO2 [Moles/Vol] 24.5 mmol/L Normal 21.0-32.[address] [facility] Comment on above: Performed By: #### T SH, BMP #### [facility] [address] [place] [address] Dr. Tasha Dodson Creatinine [Mass/Vol] 0.54 mg/dL Critically low 0.55-1.02 [facility] Comment on above: Performed By: #### T SH, BMP #### [facility] [address] [place] [address] Dr. Tasha Dodson EGFR-AF MONTSERRATIAN >60 Normal >=[address] [facility] Comment on above: Performed By: #### T SH, BMP #### [facility] [address] [place] [address] Dr. Tasha Dodson EGFR-NON AF MONTSERRATIAN >60 Normal >=60 [facility] Comment on above: Performed By: #### T SH, BMP #### [facility] [address] [place] [address] Dr. Tasha Dodson Globulin (S) [Mass/Vol] 3.1 g/dL Normal [facility] Comment on above: Performed By: #### T SH, BMP #### [facility] [address] [place] [address] Dr. Tasha Dodson Glucose [Mass/Vol] 123 mg/dL Critically high 74-106 [facility] Comment on above: Performed By: #### T SH, BMP #### [facility] [address] [place] [address] Dr. Tasha Dodson Potassium [Moles/Vol] 3.0 mmol/L Critically low 3.5-5.1 [facility] Comment on above: Performed By: #### T SH, BMP #### [facility] [address] [place] [address] Dr. Tasha Dodson Protein [Mass/Vol] 6.3 g/dL Critically low 6.4-8.2 [facility] Comment on above: Performed By: #### T SH, BMP #### [facility] [address] [place] [address] Dr. Tasha Dodson Sodium [Moles/Vol] 128 mmol/L Critically low 136-145 Th [facility] Comment on above: Performed By: #### T JESI, BMP #### [facility] [address] [place] [address] Dr. Tasha Dodson Urea nitrogen [Mass/Vol] 5.0 mg/dL Critically low 7.0-18. 0 [facility] Comment on above: Performed By: #### T SH, BMP #### [facility] [address] [place] [address] Dr. Tasha Dodson Urea nitrogen/Creatinine [Mass ratio] 9.3 mg/mg Normal [facility] Comment on above: Performed By: #### T SH, BMP #### [facility] [address] [place] [address] Dr. Tasha Dodson SODIUM RANDOM URINEon 2021 Sodium (U) [Moles/Vol] 135 mmol/L Critically high 30-90 [facility] Comment on above: Performed By: #### C BC #### [facility] [address] [place] [address] Dr. Tasha Dodson CBC AUTO DIFFon 12-27-2021 BASO # 0.0 103/ul Normal 0.0-0.1 [facility] Comment on above: Performed By: #### C BC #### [facility] [address] [place] [address] Dr. Tasha Dodson Basophils/100 WBC (Bld) 0.2 % Normal 0.2-2.0 [facility] Comment on above: Performed By: #### C BC #### [facility] [address] [place] [address] Dr. Tasha Dodson EO # 0.3 103/ul Normal 0.0-0.7 [facility] Comment on above: Performed By: #### C BC #### [facility] [address] [place] [address] Dr. Tasha Dodson Eosinophils/100 WBC (Bld) 2.3 % Normal 0.9-7.0 [facility] Comment on above: Performed By: #### C BC #### [facility] [address] [place] [address] Dr. Tasha Dodson Erythrocyte distribution width (RBC) [Ratio] 12.4 % Normal 11.0-15.0 [facility] Comment on above: Performed By: #### C BC #### [facility] [address] [place] [address] Dr. Tasha Dodson Hematocrit (Bld) [Volume fraction] 35.4 % Critically low 36.0-48.0 [facility] Comment on above: Performed By: #### C BC #### [facility] [address] [place] [address] Dr. Tasha Dodson Hemoglobin (Bld) [Mass/Vol] 12.9 g/dL Normal 12.0-16.0 [facility] Comment on above: Performed By: #### C BC #### [facility] [address] [address] [address] Tasha Dodson IG # 0.06 10e3/ul Critically high 0.00-0.03 [facility] Comment on above: Performed By: #### C BC #### [facility] [address] [address] [address] Tasha Dodson IG % 0.5 % Normal 0.0-0.5 [facility] Comment on above: Performed By: #### C BC #### [facility] [address] [place] [address] Dr. Tasha Dodson LYMPH # 2.0 103/ul Normal 1.2-3.8 [facility] Comment on above: Performed By: #### C BC #### [facility] [address] [place] [address] Dr. Tasha Dodson Lymphocytes/100 WBC (Bld) 15.7 % Critically low 20.5-60.0 [facility] Comment on above: Performed By: #### C BC #### [facility] [address] [place] [address] Dr. Tasha Dodson MANUAL DIFF REQ NO Normal [facility] Comment on above: Performed By: #### C BC #### [facility] [address] [place] [address] Dr. Tasha Dodson MCH (RBC) [Entitic mass] 31.0 pg Normal 26.7-34.0 [facility] Comment on above: Performed By: #### C BC #### [facility] [address] [place] [address] Dr. Tasha Dodson MCHC (RBC) [Mass/Vol] 36.4 g/dL Critically high 29.9-35.2 [facility] Comment on above: Performed By: #### C BC #### [facility] [address] [place] [address] Dr. Tasha Dodson MCV (RBC) [Entitic vol] 85.1 fL Normal 81.0-99.0 [facility] Comment on above: Performed By: #### C BC #### [facility] [address] [id number] [address] Tasha Dodson MONO # 1.1 103/ul Critically high 0.3-0.8 [facility] Comment on above: Performed By: #### C BC #### [facility] [address] [id number] [address] Tasha Dodson Monocytes/100 WBC (Bld) 8.3 % Normal 1.7-12.0 [facility] Comment on above: Performed By: #### C BC #### [facility] [address] [address] [address] Tasha Dodson NEUT # 9.5 103/ul Critically high 1.4-6.5 [facility] Comment on above: Performed By: #### C BC #### [facility] [address] [place] [address] Dr. Tasha Dodson Neutrophils/100 WBC (Bld) 73.0 % Normal 43.0-75.0 [facility] Comment on above: Performed By: #### C BC #### [facility] [address] [place] [address] Dr. Tasha Dodson Platelet mean volume (Bld) [Entitic vol] 8.3 fL Critically low 9.5-13.5 [facility] Comment on above: Performed By: #### C BC #### [facility] [address] [place], [place] [id number] Dr. Tasha Dodson PLT 408 103/ul Normal 150-450 The [facility] Comment on above: Performed By: #### C BC #### [facility] [address] [place] [address] Dr. Tasha Dodson RBC 4.16 106/ul Critically low 4.20-5.40 [facility] Comment on above: Performed By: #### C BC #### [facility] [address] [place] [address] Dr. Tasha Dodson WBC 13.0 103/ul Critically high 4.0-11.[address] [facility] Comment on above: Performed By: #### C BC #### [facility] [address] [place] [address] Dr. Tasha Dodson CULTURE SPUTUMon 12-27-2021 CULTURE SPUTUM Culture Observations: NORMAL RESPIRATORY AMADOU. Normal [facility] Comment on above: Performed By: #### C BC #### [facility] [address] [address] [address] Tasha Dodson PROF 14(COMP METB)on 022 Albumin [Mass/Vol] 3.4 g/dL Normal 3.4-5.0 [facility] Comment on above: Performed By: #### C MADM, LIPA, BNP, CMP #### [facility] [address] [address] [address] Tasha Dodson Albumin/Globulin [Mass ratio] 1.0 {ratio} Normal [facility] Comment on above: Performed By: #### C MADM, LIPA, BNP, CMP #### [facility] [address] [place] [address] Dr. Tasha Dodson ALP [Catalytic activity/Vol] 54 U/L Normal 46-116 [facility] Comment on above: Performed By: #### C MADM, LIPA, BNP, CMP #### [facility] [address] [address] [address] Tasha Dodson ALT [Catalytic activity/Vol] 20 U/L Normal 14-59 [facility] Comment on above: Performed By: #### C MADM, LIPA, BNP, CMP #### [facility] [address] [address] [address] Tasha Dodson Anion gap [Moles/Vol] 10.8 mmol/L Normal [facility] Comment on above: Performed By: #### C MADM, LIPA, BNP, CMP #### [facility] [address] [address] [address] Tasha Dodson AST [Catalytic activity/Vol] 19 U/L Normal 15-37 [facility] Comment on above: Performed By: #### C MADM, LIPA, BNP, CMP #### [facility] [address] [address] [address] Tasha Dodson Bilirubin [Mass/Vol] 0.5 mg/dL Normal 0.2-1.0 [facility] Comment on above: Performed By: #### C MADM, LIPA, BNP, CMP #### [facility] [address] [place] [address] Dr. Tasha Dodson Calcium [Mass/Vol] 8.3 mg/dL Critically low 8.5-10.1 Th e [facility] Comment on above: Performed By: #### C MADM, LIPA, BNP, CMP #### [facility] [address] [place] [address] Dr. Tasha Dodson Chloride [Moles/Vol] 89 mmol/L Critically low 98-107 [facility] Comment on above: Performed By: #### C MADM, LIPA, BNP, CMP #### [facility] [address] [place] [address] Dr. Tasha Dodson CO2 [Moles/Vol] 27.0 mmol/L Normal 21.0-32.[address] [facility] Comment on above: Performed By: #### C MADM, LIPA, BNP, CMP #### [facility] [address] [place] [address] Dr. Tasha Dodson Creatinine [Mass/Vol] 0.69 mg/dL Normal 0.55-1.02 [facility] Comment on above: Performed By: #### C MADM, LIPA, BNP, CMP #### [facility] [address] [place] [address] Dr. Tasha Dodson EGFR-AF MONTSERRATIAN >60 Normal >=60 [facility] Comment on above: Performed By: #### C MADM, LIPA, BNP, CMP #### [facility] [address] [place] [address] Dr. Tasha Dodson EGFR-NON AF MONTSERRATIAN >60 Normal >=60 [facility] Comment on above: Performed By: #### C MADM, LIPA, BNP, CMP #### [facility] [address] [place] [address] Dr. Tasha Dodson Globulin (S) [Mass/Vol] 3.3 g/dL Normal [facility] Comment on above: Performed By: #### C MADM, LIPA, BNP, CMP #### [facility] [address] [address] [address] Tasha Dodson Glucose [Mass/Vol] 115 mg/dL Critically high 74-106 [facility] Comment on above: Performed By: #### C MADM, LIPA, BNP, CMP #### [facility] [address] [address] [address] Tasha Dodson Potassium [Moles/Vol] 2.7 mmol/L Critically low 3.5-5.1 [facility] Comment on above: Result Comment: Test Repeated. Critical Value Verified Performed By: #### C MADM, LIPA, BNP, CMP #### [facility] [address] [place] [address] Dr. Tasha Dodson Protein [Mass/Vol] 6.7 g/dL Normal 6.4-8.2 [facility] Comment on above: Performed By: #### C MADM, LIPA, BNP, CMP #### [facility] [address] [place] [address] Dr. Tasha Dodson Sodium [Moles/Vol] 123 mmol/L Critically low 136-145 Th [facility] Comment on above: Result Comment: Test Repeated. Critical Value Verified Performed By: #### C MADM, LIPA, BNP, CMP #### [facility] [address] [place] [address] Dr. Tasha Dodson Urea nitrogen [Mass/Vol] 6.0 mg/dL Critically low 7.0-18. 0 [facility] Comment on above: Performed By: #### C MADM, LIPA, BNP, CMP #### [facility] [address] [place] [address] Dr. Tasha Dodson Urea nitrogen/Creatinine [Mass ratio] 8.7 mg/mg [facility] Comment on above: Performed By: #### C MADM, LIPA, BNP, CMP #### [facility] [address] [place] [address] Dr. Tasha Dodson SPUTUM GRAM STAINon 12-28-19 COMMENTS [facility] Comment on above: Performed By: #### T SH, BMP #### [facility] [address] [place] [address] Dr. Tasha Dodson DIPHTHEROIDS Normal The [facility] Comment on above: Performed By: #### T SH, BMP #### [facility] [address] [place] [address] Dr. Tasha Dodson EPITHELIALS <25 Normal The [facility] Comment on above: Performed By: #### T SH, BMP #### [facility] [address] [place] [address] Dr. Tasha Dodson FUNGAL ELEMENTS Normal [facility] Comment on above: Performed By: #### T SH, BMP #### [facility] [address] [place] [address] Dr. Tasha Dodson GRAM NEG BACILLI Normal [facility] Comment on above: Performed By: #### T SH, BMP #### [facility] [address] [place] [address] Dr. Tasha Dodson GRAM NEG DIPPLOCOCCI Normal The [facility] Comment on above: Performed By: #### T SH, BMP #### [facility] [address] [place] [address] Dr. Tasha Dodson GRAM POS BACILLI Normal [facility] Comment on above: Performed By: #### T SH, BMP #### [facility] [address] [place] [address] Dr. Tasha Dodson GRAM POSITIVE COCCI MODERATE Normal [facility] Comment on above: Performed By: #### T SH, BMP #### [facility] [address] [place] [address] Dr. Tasha Dodson WBC (Bld) [#/Vol] 10*3/uL Normal [facility] Comment on above: Performed By: #### T SH, BMP #### [facility] [address] [place] [address] Dr. Tasha Dodson BNPon 12-26-2021 Natriuretic peptide B (Bld) [Mass/Vol] 148.0 pg/mL Normal <=1,800.0 The [facility] Comment on above: Performed By: #### C MADM, LIPA, BNP, CMP #### [facility] [address] [address] [address] Tasha Dodson CARDIAC ANGELO ADMITon 022 CK [Catalytic activity/Vol] 139 U/L Normal 26-192 [facility] Comment on above: Performed By: #### C MADM, LIPA, BNP, CMP #### [facility] [address] [address] [address] Tasha Dodson CK.MB [Mass/Vol] 2.43 ng/mL Normal <=3.[address] [facility] Comment on above: Performed By: #### C MADM, LIPA, BNP, CMP #### [facility] [address] [address] [address] Tasha Dodson HSTROP 12.2 pg/mL Normal 4.0-51.3 [facility] Comment on above: Result Comment: CUT- OFF POINTS HAVE BEEN ESTABLISHED BASED ON THE FOURTH UNIVERSAL DEFINITIONS OF MYOCARDIAL INFARCTION. THE UPPER REFERENCE LIMIT (URL) OF TROPONIN, DEFINED THE 99TH PERCENTILE OF cTnI DISTRIBUTION IN A REFERENCE POPULATION, HAS BEEN CONFIRMED THE DECISION THRESHOLD FOR LA DIAGNOSIS. Performed By: #### C MADM, LIPA, BNP, CMP #### [facility] [address] [place] [address] Dr. Tasha Dodson ELIZABETH 110 ng/mL Critically high 9-82 [facility] Comment on above: Performed By: #### C MADM, LIPA, BNP, CMP #### [facility] [address] [place] [address] Dr. Tasha Dodson CBC AUTO DIFFon 12-26-2021 BASO # 0.0 103/ul Normal 0.0-0.1 [facility] Comment on above: Performed By: #### C MADM, LIPA, BNP, CMP #### [facility] [address] [address] [address] Tasha Dodson Basophils/100 WBC (Bld) 0.3 % Normal 0.2-2.0 [facility] Comment on above: Performed By: #### C MADM, LIPA, BNP, CMP #### [facility] [address] [place] [address] Dr. Tasha Dodson EO # 0.1 103/ul Normal 0.0-0.7 [facility] Comment on above: Performed By: #### C MADM, LIPA, BNP, CMP #### [facility] [address] [place] [address] Dr. Tasha Dodson Eosinophils/100 WBC (Bld) 0.7 % Critically low 0.9-7.0 [facility] Comment on above: Performed By: #### C MADM, LIPA, BNP, CMP #### [facility] [address] [place] [address] Dr. Tasha Dodson Erythrocyte distribution width (RBC) [Ratio] 12.4 % Normal 11.0-15.0 [facility] Comment on above: Performed By: #### C MADM, LIPA, BNP, CMP #### [facility] [address] [place] [address] Dr. Tasha Dodson Hematocrit (Bld) [Volume fraction] 38.9 % Normal 36.0-48.0 [facility] Comment on above: Performed By: #### C MADM, LIPA, BNP, CMP #### [facility] [address] [place] [address] Dr. Tasha Dodson Hemoglobin (Bld) [Mass/Vol] 14.4 g/dL Normal 12.0-16.0 [facility] Comment on above: Performed By: #### C MADM, LIPA, BNP, CMP #### [facility] [address] [place] [address] Dr. Tasha Dodson IG # 0.08 10e3/ul Critically high 0.00-0.03 [facility] Comment on above: Performed By: #### C MADM, LIPA, BNP, CMP #### [facility] [address] [place] [address] Dr. Tasha Dodson IG % 0.5 % Normal 0.0-0.5 [facility] Comment on above: Performed By: #### C MADM, LIPA, BNP, CMP #### [facility] [address] [place] [address] Dr. Tasha Dodson LYMPH # 2.2 103/ul Normal 1.2-3.8 [facility] Comment on above: Performed By: #### C MADM, LIPA, BNP, CMP #### [facility] [address] [place] [address] Dr. Tasha Dodson Lymphocytes/100 WBC (Bld) 15.0 % Critically low 20.5-60.0 [facility] Comment on above: Performed By: #### C MADM, LIPA, BNP, CMP #### [facility] [address] [place] [address] Dr. Tasha Dodson MANUAL DIFF REQ NO Normal [facility] Comment on above: Performed By: #### C MADM, LIPA, BNP, CMP #### [facility] [address] [place] [address] Dr. Tasha Dodson MCH (RBC) [Entitic mass] 31.6 pg Normal 26.7-34.0 [facility] Comment on above: Performed By: #### C MADM, LIPA, BNP, CMP #### [facility] [address] [place] [address] Dr. Tasha Dodson MCHC (RBC) [Mass/Vol] 37.0 g/dL Critically high 29.9-35.2 [facility] Comment on above: Performed By: #### C MADM, LIPA, BNP, CMP #### [facility] [address] [place] [address] Dr. Tasha Dodson MCV (RBC) [Entitic vol] 85.3 fL Normal 81.0-99.0 [facility] Comment on above: Performed By: #### C MADM, LIPA, BNP, CMP #### [facility] [address] [place] [address] Dr. Tasha Dodson MONO # 1.0 103/ul Critically high 0.3-0.8 [facility] Comment on above: Performed By: #### C MADM, LIPA, BNP, CMP #### [facility] [address] [place] [address] Dr. Tasha Dodson Monocytes/100 WBC (Bld) 6.8 % Normal 1.7-12.0 [facility] Comment on above: Performed By: #### C MADM, LIPA, BNP, CMP #### [facility] [address] [address] [address] Tasha Dodson NEUT # 11.5 103/ul Critically high 1.4-6.[address] [facility] Comment on above: Performed By: #### C MADM, LIPA, BNP, CMP #### [facility] [address] [address] [address] Tasha Dodson Neutrophils/100 WBC (Bld) 76.7 % Critically high 43.0-75.0 [facility] Comment on above: Performed By: #### C MADM, LIPA, BNP, CMP #### [facility] [address] [address] [address] Tasha Dodson Platelet mean volume (Bld) [Entitic vol] 8.6 fL Critically low 9.5-13.5 [facility] Comment on above: Performed By: #### C MADM, LIPA, BNP, CMP #### [facility] [address] [address] [address] Tasha Dodson PLT 491 103/ul Critically high 150-450 [facility] Comment on above: Performed By: #### C MADM, LIPA, BNP, CMP #### [facility] [address] [place] [address] Dr. Tasha Dodson RBC 4.56 106/ul Normal 4.20-5.40 The [facility] Comment on above: Performed By: #### C MADM, LIPA, BNP, CMP #### [facility] [address] [address] [address] Tasha Dodson WBC 15.0 103/ul Critically high 4.0-11.0 The [facility] Comment on above: Performed By: #### C MADM, LIPA, BNP, CMP #### [facility] [address] [place] [address] Dr. Tasha Dodson CULTURE URINEon 12-26-2021 CULTURE URINE Culture Observations: LIGHT GROWTH OF MIXED GENITAL AMADOU. NO POTENTIAL PATHOGENS SEEN. Normal The [facility] Comment on above: Performed By: #### C BC #### [facility] [address] [place] [address] Dr. Tasha Dodson Covid-19 PCR ([facility])on SARS-CoV-2 (COVID-19) RNA CARITO+probe Ql (Unsp spec) Not detected Normal NOT DETECTED The [facility] Comment [...] for this test is supported by the Gig Tender of Health and Human Service's declaration that [...] #### C MADM, LIPA, BNP, CMP #### [facility] [address] [place] [address] Dr. Tasha Dodson ER URINE PROFILEon 2 Bilirubin Ql (U) Negative Normal NEGATIVE [facility] Comment on above: Performed By: #### T JESI, BMP #### [facility] [address] [place] [address] Dr. Tasha Dodson Clarity (U) CLEAR Normal CLEAR The [facility] Comment on above: Performed By: #### T JESI, BMP #### [facility] [address] [place] [address] Dr. Tasha Dodson Color (U) LT. YELLOW Normal YELLOW [facility] Comment on above: Performed By: #### T JESI, BMP #### [facility] [address] [place] [address] Dr. Tasha Dodson ERUAHD A micrscopic examination will be performed if indicated. Normal [facility] Comment on above: Performed By: #### T SH, BMP #### [facility] [address] [place] [address] Dr. Tasha Dodson Glucose Ql (U) Negative Normal NEGATIVE [facility] Comment on above: Performed By: #### T SH, BMP #### [facility] [address] [place] [address] Dr. Tasha Dodson Hemoglobin Ql (U) TRACE-INTACT Abnormal NEGATIVE [facility] Comment on above: Performed By: #### T SH, BMP #### [facility] [address] [place] [address] Dr. Tasha Dodson Ketones Ql (U) TRACE Abnormal NEGATIVE [facility] Comment on above: Performed By: #### T SH, BMP #### [facility] [address] [place] [address] Dr. Tasha Dodson LEUKOCYTES Negative Normal NEGATIVE [facility] Comment on above: Performed By: #### T SH, BMP #### [facility] [address] [place] [address] Dr. Tasha Dodson Nitrite Ql (U) Negative Normal NEGATIVE [facility] Comment on above: Performed By: #### T SH, BMP #### [facility] [address] [place] [address] Dr. Tasha Dodson pH (U) 7.0 [pH] Normal 5-9 [facility] Comment on above: Performed By: #### T SH, BMP #### [facility] [address] [place] [address] Dr. Tasha Dodson SPEC GRAVITY 1.010 Normal 1.005-<=1.02 5 [facility] Comment on above: Performed By: #### T SH, BMP #### [facility] [address] [place] [address] Dr. Tasha Dodson UA PROTEIN Negative Normal NEGATIVE/ TRACE [facility] Comment on above: Performed By: #### T SH, BMP #### [facility] [address] [place] [address] Dr. Tasha Dodson UR MICRO IND INDICATED Normal [facility] Comment on above: Performed By: #### T , BMP #### [facility] [address] [place] [address] Dr. Tasha Dodson Urobilinogen Qn (U) 0.2 {Juan'U}/dL Normal 0.2 - 1. 0 [facility] Comment on above: Performed By: #### T , BMP #### [facility] [address] [place] [address] Dr. Tasha Dodson INFLUENZA A AND B AGon 12-26 INFLUANEGH SEE BELOW Normal [facility] Comment on above: Result Comment: Nega tive for Flu A protein angiten. Infection due to Flu A cannot be ruled out. Flu A angiten in the sample may be below the detection limit of the test. Performed By: #### C BC #### [facility] [address] [place] [address] Dr. Tasha Dodson INFLUBNEGH SEE BELOW Normal [facility] Comment on above: Result Comment: Nega tive for Flu B protein antigen. Infection due to Flu B cannot be ruled out. Flu B antigen in the sample may be below the detection limit of the test. Performed By: #### C BC #### [facility] [address] [place] [address] Dr. Tasha Dodson INFLUENZA A AG Negative Normal NEGATIVE SEE COMMENT [facility] Comment on above: Performed By: #### C BC #### [facility] [address] [place] [address] Dr. Tasha Dodson INFLUENZA B AG Negative Normal NEGATIVE SEE COMMENT [facility] Comment on above: Performed By: #### C BC #### [facility] [address] [place] [address] Dr. Tasha Dodson INTERNAL CONTROLS Within Normal Limits Normal Within Normal Limits [facility] Comment on above: Performed By: #### C BC #### [facility] [address] [place] [address] Dr. Tasha Dodson LACTATE/LACTIC ACIDon 2021 Lactate [Moles/Vol] 1.5 mmol/L Normal 0.4-1.9 [facility] Comment on above: Performed By: #### T SH, BMP #### [facility] [address] [place] [address] Dr. Tasha Dodson LIPASEon 12-26-2021 Lipase [Catalytic activity/Vol] 96.0 U/L Normal 73.0-393.0 [facility] Comment on above: Performed By: #### C MADM, LIPA, BNP, CMP #### [facility] [address] [place] [address] Dr. Tasha Dodson PROF 14(COMP METB)on 022 Albumin [Mass/Vol] 4.2 g/dL Normal 3.4-5.0 [facility] Comment on above: Performed By: #### C MADM, LIPA, BNP, CMP #### [facility] [address] [place] [address] Dr. Tasha Dodson Albumin/Globulin [Mass ratio] 1.1 {ratio} Normal [facility] Comment on above: Performed By: #### C MADM, LIPA, BNP, CMP #### [facility] [address] [place] [address] Dr. Tasha Dodson ALP [Catalytic activity/Vol] 68 U/L Normal 46-116 [facility] Comment on above: Performed By: #### C MADM, LIPA, BNP, CMP #### [facility] [address] [place] [address] Dr. Tasha Dodson ALT [Catalytic activity/Vol] 23 U/L Normal 14-59 [facility] Comment on above: Performed By: #### C MADM, LIPA, BNP, CMP #### [facility] [address] [place] [address] Dr. Tasha Dodson Anion gap [Moles/Vol] 12.3 mmol/L Normal [facility] Comment on above: Performed By: #### C MADM, LIPA, BNP, CMP #### [facility] [address] [place] [address] Dr. Tasha Dodson AST [Catalytic activity/Vol] 25 U/L Normal 15-37 [facility] Comment on above: Performed By: #### C MADM, LIPA, BNP, CMP #### [facility] [address] [place] [address] Dr. Tasha Dodson Bilirubin [Mass/Vol] 0.7 mg/dL Normal 0.2-1.0 [facility] Comment on above: Performed By: #### C MADM, LIPA, BNP, CMP #### [facility] [address] [place] [address] Dr. Tasha Dodson Calcium [Mass/Vol] 9.5 mg/dL Normal 8.5-10.1 [facility] Comment on above: Performed By: #### C MADM, LIPA, BNP, CMP #### [facility] [address] [place] [address] Dr. Tasha Dodson Chloride [Moles/Vol] 80 mmol/L Critically low 98-107 [facility] Comment on above: Performed By: #### C MADM, LIPA, BNP, CMP #### [facility] [address] [place] [address] Dr. Tasha Dodson CO2 [Moles/Vol] 27.1 mmol/L Normal 21.0-32.0 [facility] Comment on above: Performed By: #### C MADM, LIPA, BNP, CMP #### [facility] [address] [place] [address] Dr. Tsaha Dodson Creatinine [Mass/Vol] 0.85 mg/dL Normal 0.55-1.02 [facility] Comment on above: Performed By: #### C MADM, LIPA, BNP, CMP #### [facility] [address] [place] [address] Dr. Tasha Dodson EGFR-AF MONTSERRATIAN >60 Normal >=[address] [facility] Comment on above: Performed By: #### C MADM, LIPA, BNP, CMP #### [facility] [address] [place] [address] Dr. Tasha Dodson EGFR-NON AF MONTSERRATIAN >60 Normal >=60 [facility] Comment on above: Performed By: #### C MADM, LIPA, BNP, CMP #### [facility] [address] [place] [address] Dr. Tasha Dodson Globulin (S) [Mass/Vol] 3.9 g/dL Normal [facility] Comment on above: Performed By: #### C MADM, LIPA, BNP, CMP #### [facility] [address] [address] [address] Tasha Dodson Glucose [Mass/Vol] 132 mg/dL Critically high 74-106 [facility] Comment on above: Performed By: #### C MADM, LIPA, BNP, CMP #### [facility] [address] [place] [address] Dr. Tasha Dodson Potassium [Moles/Vol] 2.4 mmol/L Critically low 3.5-5.1 [facility] Comment on above: Performed By: #### C MADM, LIPA, BNP, CMP #### [facility] [address] [place] [address] Dr. Tasha Dodson Protein [Mass/Vol] 8.1 g/dL Normal 6.4-8.2 [facility] Comment on above: Performed By: #### C MADM, LIPA, BNP, CMP #### [facility] [address] [place] [address] Dr. Tasha Dodson Sodium [Moles/Vol] 116 mmol/L Critically low 136-145 [facility] Comment on above: Performed By: #### C MADM, LIPA, BNP, CMP #### [facility] [address] [address] [address] Tasha Dodson Urea nitrogen [Mass/Vol] 12.0 mg/dL Normal 7.0-18.0 [facility] Comment on above: Performed By: #### C MADM, LIPA, BNP, CMP #### [facility] [address] [place] [address] Dr. Tasha Dodson Urea nitrogen/Creatinine [Mass ratio] 14.1 mg/mg Normal [facility] Comment on above: Performed By: #### C MADM, LIPA, BNP, CMP #### [facility] [address] [place] [address] Dr. Tasha Dodson PROF CHEM 8 (BAS METB)on Anion gap [Moles/Vol] 11.4 mmol/L Normal [facility] Comment on above: Performed By: #### T SH, BMP #### [facility] [address] [place] [address] Dr. Tasha Dodson Calcium [Mass/Vol] 8.4 mg/dL Critically low 8.5-10.1 [facility] Comment on above: Performed By: #### T SH, BMP #### [facility] [address] [place] [address] Dr. Tasha Dodson Chloride [Moles/Vol] 89 mmol/L Critically low 98-107 [facility] Comment on above: Performed By: #### T SH, BMP #### [facility] [address] [place] [address] Dr. Tasha Dodson CO2 [Moles/Vol] 25.5 mmol/L Normal 21.0-32.[address] [facility] Comment on above: Performed By: #### T JESI, BMP #### [facility] [address] [place] [address] Dr. Tasha Dodson Creatinine [Mass/Vol] 0.89 mg/dL Normal 0.55-1.02 [facility] Comment on above: Performed By: #### T JESI, BMP #### [facility] [address] [place] [address] Dr. Tasha Dodson EGFR-AF MONTSERRATIAN >60 Normal >=[address] [facility] Comment on above: Performed By: #### T SH, BMP #### [facility] [address] [place] [address] Dr. Tasha Dodson EGFR-NON AF MONTSERRATIAN 60 mL/min/1.73m2 Normal >=60 [facility] Comment on above: Performed By: #### T SH, BMP #### [facility] [address] [place] [address] Dr. Tasha Dodson Glucose [Mass/Vol] 166 mg/dL Critically high 74-106 [facility] Comment on above: Performed By: #### T JESI, BMP #### [facility] [address] [place] [address] Dr. Tasha Dodson Potassium [Moles/Vol] 3.0 mmol/L Critically low 3.5-5.1 The [facility] Comment on above: Performed By: #### T JESI, BMP #### [facility] [address] [place] [address] Dr. Tasha Dodson Sodium [Moles/Vol] 123 mmol/L Critically low 136-145 Th e [facility] Comment on above: Performed By: #### T JESI, BMP #### [facility] [address] [place] [address] Dr. Tasha Dodson Urea nitrogen [Mass/Vol] 9.0 mg/dL Normal 7.0-18.0 [facility] Comment on above: Performed By: #### T JESI, BMP #### [facility] [address] [place] [address] Dr. Tasha Dodson Urea nitrogen/Creatinine [Mass ratio] 10.1 mg/mg Normal The [facility] Comment on above: Performed By: #### T JESI, BMP #### [facility] [address] [place] [address] Dr. Tasha Dodson PROTIMEon 12-26-2021 INR Coag (PPP) [Relative time] 0.96 {INR} Normal [facility] Comment on above: Performed By: #### T JESI, BMP #### [facility] [address] [place] [address] Dr. Tasha Dodson INR GUIDELINES SEE BELOW Normal [facility] Comment on above: Result Comment: JO RED INR: 2.0 - 3.0 CONDITIONS NOT LISTED BELOW 2.5 - 3.5 FOR PROSTHETIC HEART VALVE REPLACEMENT 2.5 - 3.5 RECURRENT THROMBOSIS Performed By: #### T JESI, BMP #### [facility] [address] [place] [address] Dr. Tasha Dodson PT Coag (PPP) [Time] 10.4 s Normal 9.0-11.6 [facility] Comment on above: Performed By: #### T JESI, BMP #### [facility] [address] [place] [address] Dr. Tasha Dodson PTTon 12-26-2021 aPTT Coag (Bld) [Time] 26.2 s Normal 22.3-36.2 Th [facility] Comment on above: Performed By: #### T SH, BMP #### [facility] [address] [place] [address] Dr. Tasha Dodson SODIUM RANDOM URINEon 2021 Sodium (U) [Moles/Vol] 71 mmol/L Normal 30-90 Th [facility] Comment on above: Performed By: #### T SH, BMP #### [facility] [address] [place] [address] Dr. Tasha Dodson T4on 12-26-2021 T4 [Mass/Vol] 10.60 ug/dL Normal 4.80-13.90 [facility] Comment on above: Performed By: #### C BC #### [facility] [address] [place] [address] Dr. Tasha Dodson TSHon 12-26-2021 TSH 5.236 uIU/mL Critically high 0.358-3.740 [facility] Comment on above: Performed By: #### C BC #### [facility] [address] [place] [address] Dr. Tasha Dodson URINE MICROSCOPIC ONLYon BACTERIA TRACE Abnormal NONE SEEN [facility] Comment on above: Performed By: #### T SH, BMP #### [facility] [address] [place] [address] Dr. Tasha Dodson Bacteria identified Cx Nom (U) NOT INDICATED Normal The [facility] Comment on above: Performed By: #### T SH, BMP #### [facility] [address] [place] [address] Dr. Tasha Dodson CAST NONE SEEN Normal NONE SEEN [facility] Comment on above: Performed By: #### T SH, BMP #### [facility] [address] [place] [address] Dr. Tasha Dodson Crystals LM Nom (Urine sed) NONE SEEN Normal NONE SEEN [facility] Comment on above: Performed By: #### T SH, BMP #### [facility] [address] [place] [address] Dr. Tasha Dodson Epithelial cells LM Ql (Urine sed) NONE SEEN Normal NONE SEEN /RARE The [facility] Comment on above: Performed By: #### T SH, BMP #### [facility] [address] [address] [address] Tasha Dodson MUCOUS NONE SEEN Normal NONE SEEN The [facility] Comment on above: Performed By: #### T SH, BMP #### [facility] [address] [address] [address] Tasha Dodson RBC 0-2 Normal 0-2 [facility] Comment on above: Performed By: #### T SH, BMP #### [facility] [address] [address] [address] Tasha Dodson WBC 0-2 Abnormal NONE SEEN The [facility] Comment on above: Performed By: #### T SH, BMP #### [facility] [address] [address] [address] Tasha Dodson XR CHEST 1 Von [...] by: TING MIXON Date: 2021-12-26 11:32 Normal [facility] XR LSPINE MIN 4 VIEWSon 11-20 XR [...] JESUS BRUNO Date: 2021-11-30 22:52 Normal The [facility] CBC AUTO DIFFon 11-09-2021 BASO # 0.1 103/ul Normal 0.0-0.1 The [facility] Comment on above: Performed By: #### C MADM, LIPA, BNP, CMP #### [facility] [address] [place] [address] Dr. Tasha Dodson Basophils/100 WBC (Bld) 0.7 % Normal 0.2-2.0 [facility] Comment on above: Performed By: #### C MADM, LIPA, BNP, CMP #### [facility] [address] [place] [address] Dr. Tasha Dodson EO # 0.2 103/ul Normal 0.0-0.7 The [facility] Comment on above: Performed By: #### C MADM, LIPA, BNP, CMP #### [facility] [address] [place] [address] Dr. Tasha Dodson Eosinophils/100 WBC (Bld) 1.8 % Normal 0.9-7.0 [facility] Comment on above: Performed By: #### C MADM, LIPA, BNP, CMP #### [facility] [address] [place] [address] Dr. Tasha Dodson Erythrocyte distribution width (RBC) [Ratio] 13.0 % Normal 11.0-15.0 [facility] Comment on above: Performed By: #### C MADM, LIPA, BNP, CMP #### [facility] [address] [place] [address] Dr. Tasha Dodson Hematocrit (Bld) [Volume fraction] 33.8 % Critically low 36.0-48.0 [facility] Comment on above: Performed By: #### C MADM, LIPA, BNP, CMP #### [facility] [address] [place] [address] Dr. Tasha Dodson Hemoglobin (Bld) [Mass/Vol] 12.5 g/dL Normal 12.0-16.0 [facility] Comment on above: Performed By: #### C MADM, LIPA, BNP, CMP #### [facility] [address] [place] [address] Dr. Tasha Dodson IG # 0.02 10e3/ul Normal 0.00-0.03 The [facility] Comment on above: Performed By: #### C MADM, LIPA, BNP, CMP #### [facility] [address] [place] [address] Dr. Tasha Dodson IG % 0.2 % Normal 0.0-0.5 [facility] Comment on above: Performed By: #### C MADM, LIPA, BNP, CMP #### [facility] [address] [place] [address] Dr. Tasha Dodson LYMPH # 2.9 103/ul Normal 1.2-3.8 The [facility] Comment on above: Performed By: #### C MADM, LIPA, BNP, CMP #### [facility] [address] [place] [address] Dr. Tasha Dodson Lymphocytes/100 WBC (Bld) 29.4 % Normal 20.5-60.0 [facility] Comment on above: Performed By: #### C MADM, LIPA, BNP, CMP #### [facility] [address] [place] [address] Dr. Tasha Dodson MANUAL DIFF REQ NO Normal [facility] Comment on above: Performed By: #### C MADM, LIPA, BNP, CMP #### [facility] [address] [place] [address] Dr. Tasha Dodson MCH (RBC) [Entitic mass] 34.1 pg Critically high 26.7-3 4.0 The [facility] Comment on above: Performed By: #### C MADM, LIPA, BNP, CMP #### [facility] [address] [place] [address] Dr. Tasha Dodson MCHC (RBC) [Mass/Vol] 37.0 g/dL Critically high 29.9-35.2 The [facility] Comment on above: Performed By: #### C MADM, LIPA, BNP, CMP #### [facility] [address] [place] [address] Dr. Tasha Dodson MCV (RBC) [Entitic vol] 92.1 fL Normal 81.0-99.0 [facility] Comment on above: Performed By: #### C MADM, LIPA, BNP, CMP #### [facility] [address] [place] [address] Dr. Tasha Dodson MONO # 0.8 103/ul Normal 0.3-0.8 [facility] Comment on above: Performed By: #### C MADM, LIPA, BNP, CMP #### [facility] [address] [place] [address] Dr. Tasha Dodson Monocytes/100 WBC (Bld) 8.2 % Normal 1.7-12.0 [facility] Comment on above: Performed By: #### C MADM, LIPA, BNP, CMP #### [facility] [address] [place] [address] Dr. Tasha Dodson NEUT # 5.9 103/ul Normal 1.4-6.5 [facility] Comment on above: Performed By: #### C MADM, LIPA, BNP, CMP #### [facility] [address] [place] [address] Dr. Tasha Dodson Neutrophils/100 WBC (Bld) 59.7 % Normal 43.0-75.0 [facility] Comment on above: Performed By: #### C MADM, LIPA, BNP, CMP #### [facility] [address] [place] [address] Dr. Tasha Dodson Platelet mean volume (Bld) [Entitic vol] 8.9 fL Critically low 9.5-13.5 [facility] Comment on above: Performed By: #### C MADM, LIPA, BNP, CMP #### [facility] [address] [place] [address] Dr. Tasha Dodson PLT 370 103/ul Normal 150-450 [facility] Comment on above: Performed By: #### C MADM, LIPA, BNP, CMP #### [facility] [address] [place] [address] Dr. Tasha Dodson RBC 3.67 106/ul Critically low 4.20-5.40 [facility] Comment on above: Performed By: #### C MADM, LIPA, BNP, CMP #### [facility] [address] [place] [address] Dr. Tasha Dodson WBC 9.9 103/ul Normal 4.0-11.0 [facility] [facility] Comment on above: Performed By: #### C MADM, LIPA, BNP, CMP #### [facility] [address] [place] [address] Dr. Tasha Dodson FREE T4on 11-09-2021 Free T4 [Mass/Vol] 1.48 ng/dL Critically high 0.76-1.46 [facility] Comment on above: Performed By: #### F T4 #### [facility] [address] [place] [address] Dr. Tasha Dodson PROF CHEM 8 (BAS METB)on Anion gap [Moles/Vol] 11.1 mmol/L Normal [facility] Comment on above: Performed By: #### T SH, BMP #### [facility] [address] [place] [address] Dr. Tasha Dodson Calcium [Mass/Vol] 9.3 mg/dL Normal 8.5-10.1 [facility] Comment on above: Performed By: #### T SH, BMP #### [facility] [address] [place] [address] Dr. Tasha Dodson Chloride [Moles/Vol] 92 mmol/L Critically low 98-107 [facility] Comment on above: Performed By: #### T SH, BMP #### [facility] [address] [place] [address] Dr. Tasha Dodson CO2 [Moles/Vol] 29.2 mmol/L Normal 21.0-32.[address] [facility] Comment on above: Performed By: #### T SH, BMP #### [facility] [address] [place] [address] Dr. Tasha Dodson Creatinine [Mass/Vol] 0.68 mg/dL Normal 0.55-1.02 [facility] Comment on above: Performed By: #### T SH, BMP #### [facility] [address] [place] [address] Dr. Tasha Dodson EGFR-AF MONTSERRATIAN >60 Normal >=[address] [facility] Comment on above: Performed By: #### T SH, BMP #### [facility] [address] [place] [address] Dr. Tasha Dodson EGFR-NON AF MONTSERRATIAN >60 Normal >=60 [facility] Comment on above: Performed By: #### T SH, BMP #### [facility] [address] [place] [address] Dr. Tasha Dodson Glucose [Mass/Vol] 109 mg/dL Critically high 74-106 [facility] Comment on above: Performed By: #### T SH, BMP #### [facility] [address] [place] [address] Dr. Tasha Dodson Potassium [Moles/Vol] 3.3 mmol/L Critically low 3.5-5.1 [facility] Comment on above: Performed By: #### T SH, BMP #### [facility] [address] [place] [address] Dr. Tasha Dodson Sodium [Moles/Vol] 129 mmol/L Critically low 136-145 [facility] Comment on above: Performed By: #### T SH, BMP #### [facility] [address] [place] [address] Dr. Tasha Dodson Urea nitrogen [Mass/Vol] 9.0 mg/dL Normal 7.0-18.0 [facility] Comment on above: Performed By: #### T SH, BMP #### [facility] [address] [place] [address] Dr. Tasha Dodson Urea nitrogen/Creatinine [Mass ratio] 13.2 mg/mg Normal [facility] Comment on above: Performed By: #### T SH, BMP #### [facility] [address] [place] [address] Dr. Tasha Dodson TSHon 11-09-2021 TSH 1.193 uIU/mL Normal 0.358-3.740 [facility] Comment on above: Performed By: #### T SH, BMP #### [facility] [address] [address] [address] Tasha Dodson LIPID PROFILEon 08-06-2021 CHOL-HDL RATIO NORM SEE BELOW Normal [facility] Comment on above: Result Comment: 3.3 - 4.4 LOW RISK 4.4 - 7.1 AVERAGE RISK 7.1 - 11.0 MODERATE RISK >11.0 HIGH RISK Performed By: #### C MADM, LIPA, BNP, CMP #### [facility] [address] [address] [address] Tasha Dodson Cholesterol [Mass/Vol] 198 mg/dL Normal <=200 [facility] Comment on above: Performed By: #### C MADM, LIPA, BNP, CMP #### [facility] [address] [place] [address] Dr. Tasha Dodson Cholesterol in HDL [Mass/Vol] 77 mg/dL Critically high 40-60 [facility] Comment on above: Performed By: #### C MADM, LIPA, BNP, CMP #### [facility] [address] [address] [address] Tasha Dodson Cholesterol in LDL [Mass/Vol] 106.0 mg/dL Normal [facility] Comment on above: Performed By: #### C MADM, LIPA, BNP, CMP #### [facility] [address] [address] [address] Tasha Dodson Cholesterol.total/Choles terol in HDL [Mass ratio] 2.6 {ratio} Normal [facility] Comment on above: Performed By: #### C MADM, LIPA, BNP, CMP #### [facility] [address] [place] [address] Dr. Tasha Dodson HDL NORMAL > or = 60 mg/dl - LOW CARDIOVASCULAR RISK <40 mg/dl - HIGH CARDIOVASCULAR RISK Normal [facility] Comment on above: Performed By: #### C MADM, LIPA, BNP, CMP #### [facility] [address] [address] [address] Tasha Dodson LDL CALC NORMAL SEE BELOW Normal [facility] Comment on above: Result Comment: <100 mg/dl OPTIMAL 100 - 129 mg/dl NEAR OR ABOVE OPTIMAL 130 - 159 mg/dl BORDERLINE HIGH 160 - 189 mg/dl HIGH >190 mg/dl VERY HIGH Performed By: #### C MADM, LIPA, BNP, CMP #### [facility] [address] [address] [address] Tasha Dodson Triglyceride [Mass/Vol] 75 mg/dL Normal <=150 [facility] Comment on above: Performed By: #### C MADM, LIPA, BNP, CMP #### [facility] [address] [address] [address] Tasha Dodson VLDL CALC 15.0 mg/dL Normal [facility] Comment on above: Performed By: #### C MADM, LIPA, BNP, CMP #### [facility] [address] [address] [address] Tasha Dodson LIVER PROFILEon 08-06-2021 Albumin [Mass/Vol] 3.7 g/dL Normal 3.4-5.0 [facility] Comment on above: Performed By: #### C MADM, LIPA, BNP, CMP #### [facility] [address] [place] [address] Dr. Tasha Dodson Albumin/Globulin [Mass ratio] 1.0 {ratio} Normal [facility] Comment on above: Performed By: #### C MADM, LIPA, BNP, CMP #### [facility] [address] [place] [address] Dr. Tasha Ddoson ALP [Catalytic activity/Vol] 62 U/L Normal 46-116 [facility] Comment on above: Performed By: #### C MADM, LIPA, BNP, CMP #### [facility] [address] [address] [address] Tasha Dodson ALT [Catalytic activity/Vol] 26 U/L Normal 14-59 [facility] Comment on above: Performed By: #### C MADM, LIPA, BNP, CMP #### [facility] [address] [place] [address] Dr. Tasha Dodson AST [Catalytic activity/Vol] 24 U/L Normal 15-37 [facility] Comment on above: Performed By: #### C MADM, LIPA, BNP, CMP #### [facility] [address] [place] [address] Dr. Tasha Dodson BILI, CONJUGATED 0.1 mg/dL Normal 0.0-0.[address] [facility] Comment on above: Performed By: #### C MADM, LIPA, BNP, CMP #### [facility] [address] [place] [address] Dr. Tasha Dodson Bilirubin [Mass/Vol] 0.5 mg/dL Normal 0.2-1.0 [facility] Comment on above: Performed By: #### C MADM, LIPA, BNP, CMP #### [facility] [address] [place] [address] Dr. Tasha Dodson Globulin (S) [Mass/Vol] 3.8 g/dL Normal [facility] Comment on above: Performed By: #### C MADM, LIPA, BNP, CMP #### [facility] [address] [place] [address] Dr. Tasha Dodson Protein [Mass/Vol] 7.5 g/dL Normal 6.4-8.2 [facility] Comment on above: Performed By: #### C MADM, LIPA, BNP, CMP #### [facility] [address] [place] [address] Dr. Tasha Dodson FREE T4on 07-28-2021 Free T4 [Mass/Vol] 1.32 ng/dL Normal 0.76-1.46 [facility] Comment on above: Performed By: #### T SH, BMP #### [facility] [address] [place] [address] Dr. Tasha Dodson PROF CHEM 8 (BAS METB)on Anion gap [Moles/Vol] 11.6 mmol/L Normal [facility] Comment on above: Performed By: #### B MP, TSH #### [facility] [address] [address] [address] Tasha Dodson Calcium [Mass/Vol] 9.4 mg/dL Normal 8.5-10.1 [facility] Comment on above: Performed By: #### B MP, TSH #### [facility] [address] [address] [address] Tasha Dodson Chloride [Moles/Vol] 93 mmol/L Critically low 98-107 [facility] Comment on above: Performed By: #### B MP, TSH #### [facility] [address] [address] [address] Tasha Dodson CO2 [Moles/Vol] 29.8 mmol/L Normal 21.0-32.[address] [facility] Comment on above: Performed By: #### B MP, TSH #### [facility] [address] [place] [address] Dr. Tasha Dodson Creatinine [Mass/Vol] 0.74 mg/dL Normal 0.55-1.02 [facility] Comment on above: Performed By: #### B MP, TSH #### [facility] [address] [place] [address] Dr. Tasha Dodson EGFR-AF MONTSERRATIAN >60 Normal >=[address] [facility] Comment on above: Performed By: #### B MP, TSH #### [facility] [address] [place] [address] Dr. Tasha Dodson EGFR-NON AF MONTSERRATIAN >60 Normal >=60 [facility] Comment on above: Performed By: #### B MP, TSH #### [facility] [address] [place] [address] Dr. Tasha Dodson Glucose [Mass/Vol] 114 mg/dL Critically high 74-106 [facility] Comment on above: Performed By: #### B MP, TSH #### [facility] [address] [place] [address] Dr. Tasha Dodson Potassium [Moles/Vol] 3.4 mmol/L Critically low 3.5-5.1 [facility] Comment on above: Performed By: #### B MP, TSH #### [facility] [address] [address] [address] Tasha Dodson Sodium [Moles/Vol] 131 mmol/L Critically low 136-145 Th [facility] Comment on above: Performed By: #### B MP, TSH #### [facility] [address] [place] [address] Dr. Tasha Dodson Urea nitrogen [Mass/Vol] 12.0 mg/dL Normal 7.0-18.0 [facility] Comment on above: Performed By: #### B MP, TSH #### [facility] [address] [address] [address] Tasha Dodson Urea nitrogen/Creatinine [Mass ratio] 16.2 mg/mg Normal [facility] Comment on above: Performed By: #### B MP, TSH #### [facility] [address] [place] [address] Dr. Tasha Dodson TSHon 07-28-2021 TSH 1.790 uIU/mL Normal 0.358-3.740 [facility] Comment on above: Performed By: #### B MP, TSH #### [facility] [address] [place] [address] Dr. Tasha Dodson TSH RANGE SEE BELOW Normal [facility] Comment on above: Result Comment: <0.3 4 UIU/ml HYPERTHYROID 0.34-5.60 UIU/ml EUTHYROID >5.60 UIU/ml HYPOTHYROID Performed By: #### B MP, TSH #### [facility] [address] [place] [address] Dr. Tasha Dodson CBC Auto Differentialon 10-0 Basophils (Bld) [#/Vol] 0.1 10*3/uL 0 - 0.2 K/u L [place] Basophils/100 WBC (Bld) 1.1 % [place] Eosinophils (Bld) [#/Vol] 0.2 10*3/uL 0 - 0.7 K/uL [place] Eosinophils/100 WBC (Bld) 1.4 % [place] Erythrocyte distribution width (RBC) [Ratio] 14.4 % 11.5 - 14.5 % [place] Hematocrit (Bld) [Volume fraction] 33.6 % Low 37 - 47 % [place] Hemoglobin (Bld) [Mass/Vol] 11.1 g/dL Low 12 - 16 g/dL [place] Interpretation and review of laboratory results Abnormal [place] Lymphocytes (Bld) [#/Vol] 2.3 10*3/uL 1 - 4.8 K/uL [place] Lymphocytes/100 WBC (Bld) 18.0 % [place] MCH (RBC) [Entitic mass] 29.5 pg 27 - 31.3 p g [place] MCHC (RBC) [Mass/Vol] 33.0 % 33 - 37 % [place], [place] MCV (RBC) [Entitic vol] 89.5 fL 82 - 100 fL [place] Monocytes (Bld) [#/Vol] 0.9 10*3/uL High 0.2 - 0.8 K/uL [place] Monocytes/100 WBC (Bld) 6.9 % [place] Neutrophils Absolute 9.1 K/uL High 1.4 - 6 .5 K/uL [place] Neutrophils/100 WBC (Bld) 72.6 % [place] Platelets (Bld) [#/Vol] 548 10*3/uL High 130 - 400 K/uL [place] RBC (Bld) [#/Vol] 3.75 10*6/uL Low [place] WBC (Bld) [#/Vol] 12.5 10*3/uL High 4.8 - 10.8 K/uL [place] CBC With Platelet and Differ entialon 11-20-2018 Basophils (Bld) [#/Vol] 0.1 10*3/uL Normal 0.0-0.2 [facility] Comment on above: Performed By: #### E SR #### [facility] [address] [place] [address] Basophils/100 WBC (Bld) 1.1 % Normal [facility] Comment on above: Performed By: #### E SR #### [facility] [address] [place] [address] Eosinophils (Bld) [#/Vol] 0.2 10*3/uL Normal 0.0-0.7 [facility] Comment on above: Performed By: #### E SR #### [facility] [address] [place] [address] Eosinophils/100 WBC (Bld) 1.4 % Normal [facility] Comment on above: Performed By: #### E SR #### [facility] [address] [place] [address] Erythrocyte distribution width (RBC) [Ratio] 14.4 % Normal 11.5-14.5 [facility] Comment on above: Performed By: #### E SR #### [facility] [address] [place] [address] Hematocrit (Bld) [Volume fraction] 33.6 % Low 37.0-47.0 [facility] Comment on above: Performed By: #### E SR #### [facility] [address] [place] [address] Hemoglobin (Bld) [Mass/Vol] 11.1 g/dL Low 12.0-16.0 [facility] Comment on above: Performed By: #### E SR #### [facility] [address] [place] [address] Lymphocytes (Bld) [#/Vol] 2.3 10*3/uL Normal 1.0-4.8 [facility] Comment on above: Performed By: #### E SR #### [facility] [address] [place] [address] Lymphocytes/100 WBC (Bld) 18.0 % Normal [facility] Comment on above: Performed By: #### E SR #### [facility] [address] [place] [address] MCH (RBC) [Entitic mass] 29.5 pg Normal 27.0-31.3 [facility] Comment on above: Performed By: #### E SR #### [facility] [address] [place] [address] MCHC (RBC) [Mass/Vol] 33.0 % Normal 33.0-37.0 [facility] Comment on above: Performed By: #### E SR #### [facility] [address] [place] [address] MCV (RBC) [Entitic vol] 89.5 fL Normal 82.0-100.0 [facility] Comment on above: Performed By: #### E SR #### [facility] [address] [place] [address] Monocytes (Bld) [#/Vol] 0.9 10*3/uL Critically high 0.2-0. 8 [facility] Comment on above: Performed By: #### E SR #### [facility] [address] [place] [address] Monocytes/100 WBC (Bld) 6.9 % Normal [facility] Comment on above: Performed By: #### E SR #### [facility] [address] [place] [address] Neutrophils (Bld) [#/Vol] 9.1 10*3/uL Critically high 1.4-6.5 [facility] Comment on above: Performed By: #### E SR #### [facility] [address] [place] [address] Neutrophils/100 WBC (Bld) 72.6 % Normal [facility] Comment on above: Performed By: #### E SR #### [facility] [address] [place] [address] Platelets (Bld) [#/Vol] 548 10*3/uL Critically high 130-40 0 [facility] Comment on above: Performed By: #### E SR #### [facility] [address] [place] [address] RBC (Bld) [#/Vol] 3.75 10*6/uL Low 4.20-5.40 [facility] Comment on above: Performed By: #### E SR #### [facility] [address] [place] [address] WBC (Bld) [#/Vol] 12.5 10*3/uL Critically high 4.8-10.8 [facility] Comment on above: Performed By: #### E SR #### [facility] [address] [place] [address] EKG 12 Leadon 11-20-2018 Atrial Rate 79 BPM [facility] [place] [place] P [place] 58 degrees [facility] [place] P-R Interval 176 ms [facility], [place] Q-T Interval 404 ms [facility] QRS Duration 130 ms [facility] QTc Calculation (Bazett) 463 ms [facility] [place] R [place] -11 degrees [facility] [place] T [place] 5 degrees [facility] [place] Urea nitrogen [Mass/Vol] Normal sinus rh ythm Right bundle branch block Moderate voltage criteria for LVH, may be normal variant Abnormal ECG When compared with ECG of 13-NOV-2018 08:33, No significant change was found Confirmed by Анна Zamarripa ([id number]) on 11/20/2018 9:39:56 AM [facility] [place] Ventricular Rate 79 BPM [facility], [place] Joseph, Chpo Incoming Results From [place] - 11/20/2018 9:40 AM EDT Normal sinus rhythm Right bundle branch block Moderate voltage criteria for LVH, may be normal variant Abnormal ECG When compared with ECG of 13-NOV-2018 08:33, No significant change was found Confirmed by Анна Zamarripa ([id number]) on 11/20/2018 9:39:56 AM [facility] [place] [place] CBC Auto Differentialon 10-23 Neutrophils Absolute 6.1 K/uL 1.4 - 6 .5 K/uL [place] CBC With Platelet and Differ entialon 11-19-2018 Basophils (Bld) [#/Vol] 0.2 10*3/uL Normal 0.0-0.2 [place] Comment on above: Performed By: #### C MP #### [facility] [address] [place] [address] Basophils/100 WBC (Bld) 1.5 % Normal [place] Comment on above: Performed By: #### C MP #### [facility] [address] [place] [address] Eosinophils (Bld) [#/Vol] 0.3 10*3/uL Normal 0.0-0.7 [place] Comment on above: Performed By: #### C MP #### [facility] [address] [place] [address] Eosinophils/100 WBC (Bld) 2.5 % Normal [place] Comment on above: Performed By: #### C MP #### [facility] [address] [place] [address] Erythrocyte distribution width (RBC) [Ratio] 14.1 % Normal 11.5-14.5 [place] Comment on above: Performed By: #### C MP #### [facility] [address] [place] [address] Hematocrit (Bld) [Volume fraction] 29.3 % Low 37.0-47.0 [place] Comment on above: Performed By: #### C MP #### [facility] [address] [place] [address] Hemoglobin (Bld) [Mass/Vol] 10.1 g/dL Low 12.0-16.0 [place] Comment on above: Performed By: #### C MP #### [facility] [address] [place] [address] Lymphocytes (Bld) [#/Vol] 2.8 10*3/uL Normal 1.0-4.8 [place] Comment on above: Performed By: #### C MP #### [facility] [address] [place] [address] Lymphocytes/100 WBC (Bld) 27.3 % Normal [place] Comment on above: Performed By: #### C MP #### [facility] [address] [place] [address] MCH (RBC) [Entitic mass] 30.7 pg Normal 27.0-31.3 [place] Comment on above: Performed By: #### C MP #### [facility] [address] [place] [address] MCHC (RBC) [Mass/Vol] 34.6 % Normal 33.0-37.0 [place] Comment on above: Performed By: #### C MP #### [facility] [address] [place] [address] MCV (RBC) [Entitic vol] 88.9 fL Normal 82.0-100.0 [place] Comment on above: Performed By: #### C MP #### [facility] [address] [place] [address] Monocytes (Bld) [#/Vol] 0.9 10*3/uL Critically high 0.2-0. 8 [place] Comment on above: Performed By: #### C MP #### [facility] [address] [place] [address] Monocytes/100 WBC (Bld) 9.2 % Normal [place] Comment on above: Performed By: #### C MP #### [facility] [address] [place] [address] Neutrophils (Bld) [#/Vol] 6.1 10*3/uL Normal 1.4-6.5 [facility] Comment on above: Performed By: #### C MP #### [facility] [address] [place] [address] Neutrophils/100 WBC (Bld) 59.5 % Normal [place] Comment on above: Performed By: #### C MP #### [facility] [address] [place] [address] Platelets (Bld) [#/Vol] 396 10*3/uL Normal 130-400 [place] Comment on above: Performed By: #### C MP #### [facility] [address] [place] [address] RBC (Bld) [#/Vol] 3.30 10*6/uL Low 4.20-5.40 [place] Comment on above: Performed By: #### C MP #### [facility] [address] [facility] [address] WBC (Bld) [#/Vol] 10.2 10*3/uL Normal 4.8-10.8 [place] Comment on above: Performed By: #### C MP #### [facility] [address] [place] [address] High Sensitivity CRPon 11-19 High Sensitivity CRP 89.2 mg/L Critically high 0.0-5.0 [facility] Comment on above: Performed By: #### E SR #### [facility] [address] [place] [address] High sensitivity CRPon 11-19 CRP High Sensitivity 89.2 mg/L High 0 - 5 mg/L [place] Interpretation and review of laboratory results Abnormal [place] Otheron 11-19-2018 Interpretation and review of laboratory results Abnormal [place] Sedimentation Rateon 019 Sedimentation Rate 55 mm Critically high 0-30 M [facility] Comment on above: Performed By: #### C MP #### [facility] [address] [place] [address] Sed Rate 55 mm High 0 - 30 mm [place] Basic Metabolic Panelon 10-22 Anion gap [Moles/Vol] 14 mmol/L Normal 9-15 [facility] Comment on above: Performed By: #### C MP #### [facility] [address] [place] [address] Calcium [Mass/Vol] 8.8 mg/dL Normal 8.5-9.9 [facility] Comment on above: Performed By: #### C MP #### [facility] [address] [place] [address] Chloride [Moles/Vol] 95 mmol/L Normal 95-107 [facility] Comment on above: Performed By: #### C MP #### [facility] [address] [place] [address] CO2 [Moles/Vol] 26 mmol/L Normal 20-31 [facility] Comment on above: Performed By: #### C MP #### [facility] [address] [place] [address] Creatinine [Mass/Vol] 0.58 mg/dL Normal 0.50-0.90 [facility] Comment on above: Performed By: #### C MP #### [facility] [address] [place] [address] GFR/1.73 sq M predicted among blacks MDRD (S/P/Bld) [Vol rate/Area] mL/min/{1.73_m2} Normal >60 [facility] Comment on above: Result Comment: >60 mL/min/1.73m2 EGFR, calc. for ages 18 and older using the MDRD formula (not corrected for weight), is valid for stable renal function. Performed By: #### C MP #### [facility] [address] [place] [address] GFR/1.73 sq M.predicted MDRD (S/P/Bld) [Vol rate/Area] mL/min/{1.73_m2} Normal >60 [facility] Comment on above: Result Comment: >60 mL/min/1.73m2 EGFR, calc. for ages 18 and older using the MDRD formula (not corrected for weight), is valid for stable renal function. Performed By: #### C MP #### [facility] [address] [place] [address] Glucose [Mass/Vol] 156 mg/dL Critically high 70-99 M [facility] Comment on above: Performed By: #### C MP #### [facility] [address] [place] [address] Potassium [Moles/Vol] 3.3 mmol/L Low 3.4-4.9 [facility] Comment on above: Performed By: #### C MP #### [facility] [address] [place] [address] Sodium [Moles/Vol] 135 mmol/L Normal 135-144 [facility] Comment on above: Performed By: #### C MP #### [facility] [address] [place] [address] Urea nitrogen [Mass/Vol] 11 mg/dL Normal 8-23 [facility] Comment on above: Performed By: #### C MP #### [facility] [address] [place] [address] Anion gap [Moles/Vol] 14 mmol/L [place] Calcium [Mass/Vol] 8.8 mg/dL 8.5 - 9.9 mg/dL [place] Chloride [Moles/Vol] 95 mmol/L [place] CO2 [Moles/Vol] 26 mmol/L [place] Creatinine [Mass/Vol] 0.58 mg/dL 0.5 - 0.9 mg/dL [place] GFR >60.0 >60 [place] Comment on above: >60 mL/min/1.73m2 EG FR, calc. for ages 18 and older using the MDRD formula (not corrected for weight), is valid for stable renal function. GFR Non- >60.0 >60 [place] Comment on above: >60 mL/min/1.73m2 EG FR, calc. for ages 18 and older using the MDRD formula (not corrected for weight), is valid for stable renal function. Glucose [Mass/Vol] 156 mg/dL High 70 - 99 mg/dL [place] Interpretation and review of laboratory results Abnormal [place] Potassium [Moles/Vol] 3.3 mmol/L Low [place] Sodium [Moles/Vol] 135 mmol/L [place] Urea nitrogen [Mass/Vol] 11 mg/dL 8 - 23 mg/d L [place] Magnesiumon 11-18-2018 Magnesium [Mass/Vol] 1.8 mg/dL Normal 1.7-2.4 [facility] Comment on above: Performed By: #### C MP #### [facility] [address] [place] [address] Magnesium [Mass/Vol] 1.8 mg/dL 1.7 - 2 .4 mg/dL [place] TSH w/out Reflexon 9 TSH Qn 0.880 uIU/mL Normal 0.440-3.86 [facility] Comment on above: Performed By: #### C MP #### [facility] [address] [place] [address] TSH without Reflexon 019 TSH Qn 0.880 m[IU]/L [place], [place] CBC Auto Differentialon 10-22 Basophils (Bld) [#/Vol] 0.1 10*3/uL 0 - 0.2 K/u L [place] Basophils/100 WBC (Bld) 0.7 % M [place] Eosinophils (Bld) [#/Vol] 0.4 10*3/uL 0 - 0.7 K/uL [place] Eosinophils/100 WBC (Bld) 2.8 % [place] Erythrocyte distribution width (RBC) [Ratio] 14.2 % 11.5 - 14.5 % [place] Hematocrit (Bld) [Volume fraction] 32.3 % Low 37 - 47 % [place] Hemoglobin (Bld) [Mass/Vol] 10.8 g/dL Low 12 - 16 g/dL [place] Interpretation and review of laboratory results Abnormal [place] Lymphocytes (Bld) [#/Vol] 2.6 10*3/uL 1 - 4.8 K/uL [place] Lymphocytes/100 WBC (Bld) 16.8 % [place] MCH (RBC) [Entitic mass] 30.3 pg 27 - 31.3 p g [place] MCHC (RBC) [Mass/Vol] 33.4 % 33 - 37 % [place] MCV (RBC) [Entitic vol] 90.5 fL 82 - 100 fL [place] Monocytes (Bld) [#/Vol] 1.3 10*3/uL High 0.2 - 0.8 K/uL [place] Monocytes/100 WBC (Bld) 8.3 % [place] Neutrophils Absolute 11.1 K/uL High 1.4 - 6 .5 K/uL [place] Neutrophils/100 WBC (Bld) 71.4 % [place] Platelets (Bld) [#/Vol] 375 10*3/uL 130 - 400 K/uL [place] RBC (Bld) [#/Vol] 3.57 10*6/uL Low [place] WBC (Bld) [#/Vol] 15.5 10*3/uL High 4.8 - 10.8 K/uL [place] CBC With Platelet and Differ entialon 11-17-2018 Basophils (Bld) [#/Vol] 0.1 10*3/uL Normal 0.0-0.2 [facility] Comment on above: Performed By: #### C MP #### [facility] [address] [facility] [address] Basophils/100 WBC (Bld) 0.7 % Normal [facility] Comment on above: Performed By: #### C MP #### [facility] [address] [place] [address] Eosinophils (Bld) [#/Vol] 0.4 10*3/uL Normal 0.0-0.7 [facility] Comment on above: Performed By: #### C MP #### [facility] [address] [place] [address] Eosinophils/100 WBC (Bld) 2.8 % Normal [facility] Comment on above: Performed By: #### C MP #### [facility] [address] [place] [address] Erythrocyte distribution width (RBC) [Ratio] 14.2 % Normal 11.5-14.5 [facility] Comment on above: Performed By: #### C MP #### [facility] [address] [place] [address] Hematocrit (Bld) [Volume fraction] 32.3 % Low 37.0-47.0 [facility] Comment on above: Performed By: #### C MP #### [facility] [address] [place] [address] Hemoglobin (Bld) [Mass/Vol] 10.8 g/dL Low 12.0-16.0 [facility] Comment on above: Performed By: #### C MP #### [facility] [address] [place] [address] Lymphocytes (Bld) [#/Vol] 2.6 10*3/uL Normal 1.0-4.8 [facility] Comment on above: Performed By: #### C MP #### [facility] [address] [place] [address] Lymphocytes/100 WBC (Bld) 16.8 % Normal [facility] Comment on above: Performed By: #### C MP #### [facility] [address] [place] [address] MCH (RBC) [Entitic mass] 30.3 pg Normal 27.0-31.3 [facility] Comment on above: Performed By: #### C MP #### [facility] [address] [place] [address] MCHC (RBC) [Mass/Vol] 33.4 % Normal 33.0-37.0 [facility] Comment on above: Performed By: #### C MP #### [facility] [address] [place] [address] MCV (RBC) [Entitic vol] 90.5 fL Normal 82.0-100.0 [facility] Comment on above: Performed By: #### C MP #### [facility] [address] [place] [address] Monocytes (Bld) [#/Vol] 1.3 10*3/uL Critically high 0.2-0. 8 [facility] Comment on above: Performed By: #### C MP #### [facility] [address] [place] [address] Monocytes/100 WBC (Bld) 8.3 % Normal [facility] Comment on above: Performed By: #### C MP #### [facility] [address] [place] [address] Neutrophils (Bld) [#/Vol] 11.1 10*3/uL Critically high 1.4-6.5 [facility] Comment on above: Performed By: #### C MP #### [facility] [address] [place] [address] Neutrophils/100 WBC (Bld) 71.4 % Normal [facility] Comment on above: Performed By: #### C MP #### [facility] [address] [place] [address] Platelets (Bld) [#/Vol] 375 10*3/uL Normal 130-400 [facility] Comment on above: Performed By: #### C MP #### [facility] [address] [place] [address] RBC (Bld) [#/Vol] 3.57 10*6/uL Low 4.20-5.40 [facility] Comment on above: Performed By: #### C MP #### [facility] [address] [place] [address] WBC (Bld) [#/Vol] 15.5 10*3/uL Critically high 4.8-10.8 [facility] Comment on above: Performed By: #### C MP #### [facility] [address] [place] [address] High Sensitivity CRPon 11-17 High Sensitivity CRP 230.1 mg/L Critically high 0.0-5.0 [facility] Comment on above: Performed By: #### C MP #### [facility] [address] [facility] [address] High sensitivity CRPon 11-17 CRP High Sensitivity 230.1 mg/L High 0 - 5 mg/L [place] Interpretation and review of laboratory results Abnormal [place] Sedimentation Rateon 019 Sedimentation Rate 50 mm Critically high 0-30 M [facility] Comment on above: Performed By: #### C MP #### [facility] [address] [facility] [address] Interpretation and review of laboratory results Abnormal [place] Sed Rate 50 mm High 0 - 30 mm [place] DUP LOWER EXTREMITIES VAUGHN ATERAL VENOUSon 11-17-2018 NO DVT IDENTIFIED IN EITHER LOWER EXTREMITY. [place], [place] Joseph, Chpo Incoming Radiant Results From [facility] - 11/17/2018 8:05 AM EDT US DUP [...] DVT IDENTIFIED IN EITHER LOWER EXTREMITY. [place] DUP LOWER EXTREMITIES BILATERAL VENOUS : 11/16/2018 CLINICAL HISTORY: LEG SWELLING, PAIN, DVT SUSPECTED . COMPARISON: None available. Grayscale, compression, color and waveform Doppler analysis of both lower extremity deep venous systems was performed with augmentation. FINDINGS: There is no deep venous thrombosis, abnormal masses, fluid collections or other findings of concern identified within either lower extremity. [place] Urine Cultureon 11-17-2018 Bacteria identified Cx Nom (U) No growth 24 hours [place], [place] ORDERED BY: MAMI COKER SOURCE: Urine Clean Catch COLLECTED: 11/15/18 19:05 ANTIBIOTICS AT DI.: RECEIVED : 11/15/18 19:05 [place] CBC With Platelet and Differ entialon 11-16-2018 Neutrophils (Bld) [#/Vol] 15.5 10*3/uL Critically high 1.4-6.5 [facility] Comment on above: Performed By: #### P TT #### [facility] [address] [place] [address] Basophils (Bld) [#/Vol] 0.2 10*3/uL Normal 0.0-0.2 [place] Comment on above: Performed By: #### P TT #### [facility] [address] [place] [address] Basophils/100 WBC (Bld) 0.9 % Normal [place] Comment on above: Performed By: #### P TT #### [facility] [address] [place] [address] Eosinophils (Bld) [#/Vol] 0.1 10*3/uL Normal 0.0-0.7 [place] Comment on above: Performed By: #### P TT #### [facility] [address] [place] [address] Eosinophils/100 WBC (Bld) 0.8 % Normal [place] Comment on above: Performed By: #### P TT #### [facility] [address] [place] [address] Erythrocyte distribution width (RBC) [Ratio] 14.4 % Normal 11.5-14.5 [place] Comment on above: Performed By: #### P TT #### [facility] [address] [place] [address] Hematocrit (Bld) [Volume fraction] 33.4 % Low 37.0-47.0 [place] Comment on above: Performed By: #### P TT #### [facility] [address] [place] [address] Hemoglobin (Bld) [Mass/Vol] 11.0 g/dL Low 12.0-16.0 [place] Comment on above: Performed By: #### P TT #### [facility] [address] [facility] [address] Lymphocytes (Bld) [#/Vol] 1.5 10*3/uL Normal 1.0-4.8 [place] Comment on above: Performed By: #### P TT #### [facility] [address] [facility] [address] Lymphocytes/100 WBC (Bld) 7.9 % Normal [place] Comment on above: Performed By: #### P TT #### [facility] [address] [facility] [address] MCH (RBC) [Entitic mass] 29.4 pg Normal 27.0-31.3 [place] Comment on above: Performed By: #### P TT #### [facility] [address] [facility] [address] MCHC (RBC) [Mass/Vol] 32.9 % Low 33.0-37.0 [place] Comment on above: Performed By: #### P TT #### [facility] [address] [facility] [address] MCV (RBC) [Entitic vol] 89.4 fL Normal 82.0-100.0 M [place] Comment on above: Performed By: #### P TT #### [facility] [address] [facility] [address] Monocytes (Bld) [#/Vol] 1.3 10*3/uL Critically high 0.2-0. 8 [place] Comment on above: Performed By: #### P TT #### [facility] [address] [place] [address] Monocytes/100 WBC (Bld) 7.1 % Normal M [place] Comment on above: Performed By: #### P TT #### [facility] [address] [place] [address] Neutrophils/100 WBC (Bld) 83.3 % Normal [place] Comment on above: Performed By: #### P TT #### [facility] [address] [facility] [address] Platelets (Bld) [#/Vol] 304 10*3/uL Normal 130-400 [place] Comment on above: Performed By: #### P TT #### [facility] [address] [facility] [address] RBC (Bld) [#/Vol] 3.74 10*6/uL Low 4.20-5.40 [place] Comment on above: Performed By: #### P TT #### [facility] [address] [facility] [address] WBC (Bld) [#/Vol] 18.6 10*3/uL Critically high 4.8-10.8 [place] Comment on above: Performed By: #### P TT #### [facility] [address] 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 Age 83 year(s) Interpreting [facility] Physician Cardiology Cain Quinonez MD Procedure Type [...] Gradient: 4.03 mmHg Estimated PASP: 40.86 mmHg [place] ED Velocity: 1.27 m/s LVOT Peak Velocity: [...] Root: 2.35 cm LVOT Diameter: 1.65 cm [facility] [place], [place] Joseph, Chpo Incoming Cardiovascular Results From [facility] - 11/16/2018 5:05 PM EDT Transthoracic Echocardiography Report (TTE) Demographics Patient Name MERCY GANDHI Gender Female Patient Number [id number] Race Unknown Ethnicity Visit Number [id number] Room Number R238 Corporate ID Date of Study 11/16/2018 Referring Physician Niki Ayala George Number Date of 1935 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 [facility]the[facility] Age 83 year(s) Interpreting [facility] Physician Cardiology Cain Quinonez MD Procedure Type [...] Gradient: 4.03 mmHg Estimated PASP: 40.86 mmHg [place] ED Velocity: 1.27 m/s LVOT Peak Velocity: [...] 2.35 cm LVOT Diameter: 1.65 cm [place] Microscopic Urinalysison Bacteria, UA Negative /HPF [place], [place] Epi Cells 3-5 /HPF [place] Interpretation and review of laboratory results Abnormal [place] RBC (U) [#/Vol] 3-5 Abnormal [place] Renal Epithelial, Urine 0-2 Abnormal /HPF [place] WBC, UA None seen [place] CAROTID ARTERY BILATERALo n 11-16-2018 [...] Damped resistive CCA decreased decreased resistive CCA [facility] [place] Joseph, Chpo Incoming Radiant Results From [facility] - 11/16/2018 10:40 AM EDT Patient : [...] resistive CCA decreased decreased resistive CCA [place], [place] Patient : 1935 Age: 83 years [...] and noncalcified plaque bilateral carotid arterial systems [facility] [place] [place] US DUP LOWER EXTREMITIES VAUGHN ATERAL VENOUSon [...] De Souza MD 11/17/18 Final result Normal [facility] Urine Microscopicon 11-17-19 19 Bacteria LM.HPF (Urine sed) [#/Area] Negative Normal [facility] Comment on above: Performed By: #### P TT #### [facility] [address] [place] [address] Epithelial cells LM Ql (Urine sed) 3-5 Normal [facility] Comment on above: Performed By: #### P TT #### [facility] [address] [place] [address] RBC (U) [#/Vol] 3-5 Abnormal 0-2 [facility] Comment on above: Performed By: #### P TT #### [facility] [address] [place] [address] Urine Renal Epithelial 0-2 Abnormal Me [facility] Comment on above: Performed By: #### P TT #### [facility] [address] [place] [address] WBC (U) [#/Vol] None seen Normal 0-5 [facility] Comment on above: Performed By: #### P TT #### [facility] [address] [place] [address] XR CHEST PORTABLEon 11-17-19 19 Joseph, Chpo [...] is unremarkable. CONCLUSION: NO ACUTE PROCESS [place] EXAMINATION: XR CHEST PORTABLE CLINICAL HISTORY: fever . History of back surgery. COMPARISONS: None available. FINDINGS: Single AP portable view the chest obtained on November 15, 2018 at 2124 hours. The heart is not enlarged. Mediastinum is not widened. Calcified aorta is not dilated. Lungs are clear. The chest wall is unremarkable. CONCLUSION: NO ACUTE PROCESS [place] CBC Auto Differentialon 10-22 Anisocytosis Ql (Bld) 1+ [place] Bands Relative 4 % Low 5 - 11 % [place] Basophils (Bld) [#/Vol] 0.0 10*3/uL 0 - 0.2 K/u L [place] Basophils/100 WBC (Bld) 0.6 % M [place] Eosinophils (Bld) [#/Vol] 0.0 10*3/uL 0 - 0.7 K/uL [place] Eosinophils/100 WBC (Bld) 0.9 % [place] Erythrocyte distribution width (RBC) [Ratio] 14.6 % High 11.5 - 14.5 % [place] Hematocrit (Bld) [Volume fraction] 33.3 % Low 37 - 47 % [place] Hemoglobin (Bld) [Mass/Vol] 10.9 g/dL Low 12 - 16 g/dL [place] Interpretation and review of laboratory results Abnormal [place] Lymphocytes (Bld) [#/Vol] 3.5 10*3/uL 1 - 4.8 K/uL [place] Lymphocytes/100 WBC (Bld) 17.0 % [place] MCH (RBC) [Entitic mass] 29.8 pg 27 - 31.3 p g [place] MCHC (RBC) [Mass/Vol] 32.9 % Low 33 - 37 % [place] MCV (RBC) [Entitic vol] 90.7 fL 82 - 100 fL [place] Microcytes 1+ [place] Monocytes (Bld) [#/Vol] 0.0 10*3/uL Low 0.2 - 0.8 K/uL [place] Monocytes/100 WBC (Bld) 7.7 % M [place] Neutrophils Absolute 17.3 K/uL High 1.4 - 6 .5 K/uL [place] Neutrophils/100 WBC (Bld) 79.0 % [place] PLATELET SLIDE REVIEW Normal [place] Platelets (Bld) [#/Vol] 315 10*3/uL 130 - 400 K/uL [place] RBC (Bld) [#/Vol] 3.67 10*6/uL Low [place] WBC (Bld) [#/Vol] 20.8 10*3/uL High 4.8 - 10.8 K/uL [place] CBC With Platelet No Differe ntialon 11-15-2018 Erythrocyte distribution width (RBC) [Ratio] 14.5 % Normal 11.5-14.5 [facility] Comment on above: Performed By: #### P TT #### [facility] [address] [facility] [address] Hematocrit (Bld) [Volume fraction] 36.9 % Low 37.0-47.0 [facility] Comment on above: Performed By: #### P TT #### [facility] [address] [facility] [address] Hemoglobin (Bld) [Mass/Vol] 11.9 g/dL Low 12.0-16.0 [facility] Comment on above: Performed By: #### P TT #### [facility] [address] [facility] [address] MCH (RBC) [Entitic mass] 29.4 pg Normal 27.0-31.3 [facility] Comment on above: Performed By: #### P TT #### [facility] [address] [place] [address] MCHC (RBC) [Mass/Vol] 32.3 % Low 33.0-37.0 [facility] Comment on above: Performed By: #### P TT #### [facility] [address] [place] [address] MCV (RBC) [Entitic vol] 91.1 fL Normal 82.0-100.0 M [facility] Comment on above: Performed By: #### P TT #### [facility] [address] [place] [address] Platelets (Bld) [#/Vol] 341 10*3/uL Normal 130-400 [facility] Comment on above: Performed By: #### P TT #### [facility] [address] [place] [address] RBC (Bld) [#/Vol] 4.05 10*6/uL Low 4.20-5.40 [facility] Comment on above: Performed By: #### P TT #### [facility] [address] [place] [address] WBC (Bld) [#/Vol] 19.8 10*3/uL Critically high 4.8-10.8 [facility] Comment on above: Performed By: #### P TT #### [facility] [address] [place] [address] CBC With Platelet and Differ entialon 11-15-2018 Anisocytosis Ql (Bld) 1+ Normal [facility] Comment on above: Performed By: #### P TT #### [facility] [address] [place] [address] Bands 4 % Low 5-11 [facility] Comment on above: Performed By: #### P TT #### [facility] [address] [place] [address] Basophils (Bld) [#/Vol] 0.0 10*3/uL Normal 0.0-0.2 [facility] Comment on above: Performed By: #### P TT #### [facility] [address] [place] [address] Basophils/100 WBC (Bld) 0.6 % Normal M [facility] Comment on above: Performed By: #### P TT #### [facility] [address] [place] [address] Eosinophils (Bld) [#/Vol] 0.0 10*3/uL Normal 0.0-0.7 [facility] Comment on above: Performed By: #### P TT #### [facility] [address] [place] [address] Eosinophils/100 WBC (Bld) 0.9 % Normal [facility] Comment on above: Performed By: #### P TT #### [facility] [address] [place] [address] Lymphocytes (Bld) [#/Vol] 3.5 10*3/uL Normal 1.0-4.8 [facility] Comment on above: Performed By: #### P TT #### [facility] [address] [place] [address] Lymphocytes/100 WBC (Bld) 17.0 % Normal [facility] Comment on above: Performed By: #### P TT #### [facility] [address] [place] [address] Microcytic 1+ Normal [facility] Comment on above: Performed By: #### P TT #### [facility] [address] [place] [address] Monocytes (Bld) [#/Vol] 0.0 10*3/uL Low 0.2-0.8 [facility] Comment on above: Performed By: #### P TT #### [facility] [address] [place] [address] Monocytes/100 WBC (Bld) 7.7 % Normal M [facility] Comment on above: Performed By: #### P TT #### [facility] [address] [place] [address] Neutrophils (Bld) [#/Vol] 17.3 10*3/uL Critically high 1.4-6.5 [facility] Comment on above: Performed By: #### P TT #### [facility] [address] [place] [address] Neutrophils/100 WBC (Bld) 79.0 % Normal [facility] Comment on above: Performed By: #### P TT #### [facility] [address] [place] [address] Platelet Slide Review Normal Normal [facility] Comment on above: Performed By: #### P TT #### [facility] [address] [place] [address] Erythrocyte distribution width (RBC) [Ratio] 14.6 % Critically high 11.5-14.5 [facility] Comment on above: Performed By: #### P TT #### [facility] [address] [place] [address] Hematocrit (Bld) [Volume fraction] 33.3 % Low 37.0-47.0 [facility] Comment on above: Performed By: #### P TT #### [facility] [address] [place] [address] Hemoglobin (Bld) [Mass/Vol] 10.9 g/dL Low 12.0-16.0 [facility] Comment on above: Performed By: #### P TT #### [facility] [address] [place] [address] MCH (RBC) [Entitic mass] 29.8 pg Normal 27.0-31.3 [facility] Comment on above: Performed By: #### P TT #### [facility] [address] [place] [address] MCHC (RBC) [Mass/Vol] 32.9 % Low 33.0-37.0 [facility] Comment on above: Performed By: #### P TT #### [facility] [address] [place] [address] MCV (RBC) [Entitic vol] 90.7 fL Normal 82.0-100.0 [facility] Comment on above: Performed By: #### P TT #### [facility] [address] [place] [address] Platelets (Bld) [#/Vol] 315 10*3/uL Normal 130-400 [facility] Comment on above: Performed By: #### P TT #### [facility] [address] [place] [address] RBC (Bld) [#/Vol] 3.67 10*6/uL Low 4.20-5.40 [facility] Comment on above: Performed By: #### P TT #### [facility] [address] [place] [address] WBC (Bld) [#/Vol] 20.8 10*3/uL Critically high 4.8-10.8 [facility] Comment on above: Performed By: #### P TT #### [facility] [address] [place] [address] Comprehensive Metabolic Pane l reflex Mgon 11-15-2018 Albumin [Mass/Vol] 3.3 g/dL Low 3.5-4.6 [facility] Comment on above: Performed By: #### P TT #### [facility] [address] [place] [address] ALP [Catalytic activity/Vol] 71 U/L Normal 40-130 [facility] Comment on above: Performed By: #### P TT #### [facility] [address] [place] [address] ALT [Catalytic activity/Vol] 12 U/L Normal 0-33 [facility] Comment on above: Performed By: #### P TT #### [facility] [address] [place] [address] Anion gap [Moles/Vol] 11 mmol/L Normal 9-15 [facility] Comment on above: Performed By: #### P TT #### [facility] [address] [place] [address] AST [Catalytic activity/Vol] 28 U/L Normal 0-35 [facility] Comment on above: Performed By: #### P TT #### [facility] [address] [place] [address] Bilirubin [Mass/Vol] 0.4 mg/dL Normal 0.2-0.7 [facility] Comment on above: Performed By: #### P TT #### [facility] [address] [place] [address] Calcium [Mass/Vol] 9.1 mg/dL Normal 8.5-9.9 [facility] Comment on above: Performed By: #### P TT #### [facility] [address] [place] [address] Chloride [Moles/Vol] 98 mmol/L Normal 95-107 [facility] Comment on above: Performed By: #### P TT #### [facility] [address] [place] [address] CO2 [Moles/Vol] 27 mmol/L Normal 20-31 [facility] Comment on above: Performed By: #### P TT #### [facility] [address] [place] [address] Creatinine [Mass/Vol] 0.59 mg/dL Normal 0.50-0.90 [facility] Comment on above: Performed By: #### P TT #### [facility] [address] [place] [address] GFR/1.73 sq M predicted among blacks MDRD (S/P/Bld) [Vol rate/Area] mL/min/{1.73_m2} Normal >60 [facility] Comment on above: Result Comment: >60 mL/min/1.73m2 EGFR, calc. for ages 18 and older using the MDRD formula (not corrected for weight), is valid for stable renal function. Performed By: #### P TT #### [facility] [address] [place] [address] GFR/1.73 sq M.predicted MDRD (S/P/Bld) [Vol rate/Area] mL/min/{1.73_m2} Normal >60 [facility] Comment on above: Result Comment: >60 mL/min/1.73m2 EGFR, calc. for ages 18 and older using the MDRD formula (not corrected for weight), is valid for stable renal function. Performed By: #### P TT #### [facility] [address] [place] [address] Globulin (S) [Mass/Vol] 3.2 g/dL Normal 2.3-3.5 [facility] Comment on above: Performed By: #### P TT #### [facility] [address] [place] [address] Glucose [Mass/Vol] 123 mg/dL Critically high 70-99 [facility] Comment on above: Performed By: #### P TT #### [facility] [address] [place] [address] Potassium reflex Mg 3.8 mEq/L Normal 3.4-4.9 [facility] Comment on above: Performed By: #### P TT #### [facility] [address] [place] [address] Protein [Mass/Vol] 6.5 g/dL Normal 6.3-8.0 [facility] Comment on above: Performed By: #### P TT #### [facility] [address] [place] [address] Sodium [Moles/Vol] 136 mmol/L Normal 135-144 [facility] Comment on above: Performed By: #### P TT #### [facility] [address] [place] [address] Urea nitrogen [Mass/Vol] 6 mg/dL Low 8-23 [facility] Comment on above: Performed By: #### P TT #### [facility] [address] [place] [address] Culture, Blood 2on 9 Culture, Blood 2 ORDERED BY: MAMI COKER SOURCE: Blood COLLECTED: 11/15/18 16:37 ANTIBIOTICS AT DI.: RECEIVED : 11/15/18 16:42 Culture, Blood 2 FINAL 11/20/18 18:15 No growth after 5 days of incubation. Normal [facility] Comment on above: Performed By: #### C MP #### [facility] [address] [place] [address] Culture, Urineon 11-15-2018 Culture, Urine ORDERED BY: MAMI COKER SOURCE: Urine Clean Catch COLLECTED: 11/15/18 19:05 ANTIBIOTICS AT DI.: RECEIVED : 11/15/18 19:05 Culture, Urine FINAL 11/17/18 07:28 No growth 24 hours Normal [facility] Comment on above: Performed By: #### C MP #### [facility] [address] [place] [address] URINE RT REFLEX TO CULTUREon 11-15-2018 Bilirubin Urine Negative Negative [facility] [place], [place] Blood, Urine TRACE Abnormal Negative [facility], [place] Clarity, UA Clear Clear [facility] [place], [place] Color, UA Yellow Straw/Yellow [place], [place] Glucose, Ur Negative Negative mg/dL [place], [place] Interpretation and review of laboratory results Abnormal [place], [place] Ketones Ql (U) Negative Negative mg/dL [place], [place] Leukocyte esterase Test strip Ql (U) Negative Negative [facility] [place], [place] Nitrite, Urine Negative Negative [facility], [place] pH, UA 7.0 [place], [place] Protein (U) [Mass/Vol] 30 mg/dL Abnormal Negative [facility], [place] Specific [place], UA 1.014 [facility], [place] Urine Reflex to Culture YES M [facility], [place] Urobilinogen, Urine 0.2 <2.0 E.U./dL [place], [place] US CAROTID ARTERY BILATERALo n 11-15-2018 [...] Mohsen Childers MD 11/16/18 Final result Normal [facility] Urinalysis, reflex to cultur kendall 11-15-2018 Bilirubin Ql (U) Negative Normal Negative [facility] Comment on above: Performed By: #### P TT #### [facility] [address] [place] [address] Clarity (U) Clear Normal Clear [facility] Comment on above: Performed By: #### P TT #### [facility] [address] [place] [address] Color (U) Yellow Normal Straw/Cocke [facility] Comment on above: Performed By: #### P TT #### [facility] [address] [place] [address] Glucose Ql (U) Negative Normal Negative [facility] Comment on above: Performed By: #### P TT #### [facility] [address] [place] [address] Hemoglobin Ql (U) TRACE Abnormal Negative [facility] Comment on above: Performed By: #### P TT #### [facility] [address] [place] [address] Ketones Ql (U) Negative Normal Negative [facility] Comment on above: Performed By: #### P TT #### [facility] [address] [place] [address] Leukocyte esterase Test strip Ql (U) Negative Normal Negative [facility] Comment on above: Performed By: #### P TT #### [facility] [address] [place] [address] Nitrite Ql (U) Negative Normal Negative [facility] Comment on above: Performed By: #### P TT #### [facility] [address] [place] [address] pH (U) 7.0 [pH] Normal 5.0-9.0 [facility] Comment on above: Performed By: #### P TT #### [facility] [address] [place] [address] Protein Ql (U) 30 mg/dL Abnormal Negative [facility] Comment on above: Performed By: #### P TT #### [facility] [address] [place] [address] Specific gravity (U) [Rel density] 1.014 Normal 1.005-1.03 [facility] Comment on above: Performed By: #### P TT #### [facility] [address] [place] [address] Urine Reflexed to Culture YES Normal [facility] Comment on above: Performed By: #### P TT #### [facility] [address] [place] [address] Urobilinogen Qn (U) 0.2 {Juan'U}/dL Normal < 2.0 [facility] Comment on above: Performed By: #### P TT #### [facility] [address] [place] [address] XR CHEST PORTABLEon 11-16-19 XR CHEST PORTABLE [...] Pearl Varghese MD 11/16/18 Final result Normal [facility] Basic Metabolic Panel Reflex Mgon 11-14-2018 Anion gap [Moles/Vol] 10 mmol/L Normal -15 [facility] Comment on above: Performed By: #### P T #### [facility] [address] [place] [address] Calcium [Mass/Vol] 8.4 mg/dL Low 8.5-9.9 [facility] Comment on above: Performed By: #### P T #### [facility] [address] [place] [address] Chloride [Moles/Vol] 100 mmol/L Normal 95-107 [facility] Comment on above: Performed By: #### P T #### [facility] [address] [place] [address] CO2 [Moles/Vol] 25 mmol/L Normal 20-31 [facility] Comment on above: Performed By: #### P T #### [facility] [address] [place] [address] Creatinine [Mass/Vol] 0.66 mg/dL Normal 0.50-0.90 [facility] Comment on above: Performed By: #### P T #### [facility] [address] [place] [address] GFR/1.73 sq M predicted among blacks MDRD (S/P/Bld) [Vol rate/Area] mL/min/{1.73_m2} Normal >60 [facility] Comment on above: Result Comment: >60 mL/min/1.73m2 EGFR, calc. for ages 18 and older using the MDRD formula (not corrected for weight), is valid for stable renal function. Performed By: #### P T #### [facility] [address] [place] [address] GFR/1.73 sq M.predicted MDRD (S/P/Bld) [Vol rate/Area] mL/min/{1.73_m2} Normal >60 [facility] Comment on above: Result Comment: >60 mL/min/1.73m2 EGFR, calc. for ages 18 and older using the MDRD formula (not corrected for weight), is valid for stable renal function. Performed By: #### P T #### [facility] [address] [place] [address] Glucose [Mass/Vol] 144 mg/dL Critically high 70-99 [facility] Comment on above: Performed By: #### P T #### [facility] [address] [place] [address] Potassium reflex Mg 4.1 mEq/L Normal 3.4-4.9 [facility] Comment on above: Performed By: #### P T #### [facility] [address] [place] [address] Sodium [Moles/Vol] 135 mmol/L Normal 135-144 [facility] Comment on above: Performed By: #### P T #### [facility] [address] [place] [address] Urea nitrogen [Mass/Vol] 6 mg/dL Low 8-23 [facility] Comment on above: Performed By: #### P T #### [facility] [address] [place] [address] CBC With Platelet and Differ entialon 11-14-2018 Basophils (Bld) [#/Vol] 0.1 10*3/uL Normal 0.0-0.2 [facility] Comment on above: Performed By: #### P T #### [facility] [address] [place] [address] Basophils/100 WBC (Bld) 0.5 % Normal [facility] Comment on above: Performed By: #### P T #### [facility] [address] [place] [address] Eosinophils (Bld) [#/Vol] 0.1 10*3/uL Normal 0.0-0.7 [facility] Comment on above: Performed By: #### P T #### [facility] [address] [place] [address] Eosinophils/100 WBC (Bld) 0.8 % Normal [facility] Comment on above: Performed By: #### P T #### [facility] [address] [place] [address] Erythrocyte distribution width (RBC) [Ratio] 14.1 % Normal 11.5-14.5 [facility] Comment on above: Performed By: #### P T #### [facility] [address] [place] [address] Hematocrit (Bld) [Volume fraction] 35.4 % Low 37.0-47.0 [facility] Comment on above: Performed By: #### P T #### [facility] [address] [place] [address] Hemoglobin (Bld) [Mass/Vol] 11.7 g/dL Low 12.0-16.0 [facility] Comment on above: Performed By: #### P T #### [facility] [address] [place] [address] Lymphocytes (Bld) [#/Vol] 2.7 10*3/uL Normal 1.0-4.8 [facility] Comment on above: Performed By: #### P T #### [facility] [address] [place] [address] Lymphocytes/100 WBC (Bld) 15.7 % Normal [facility] Comment on above: Performed By: #### P T #### [facility] [address] [place] [address] MCH (RBC) [Entitic mass] 29.7 pg Normal 27.0-31.3 [facility] Comment on above: Performed By: #### P T #### [facility] [address] [place] [address] MCHC (RBC) [Mass/Vol] 33.1 % Normal 33.0-37.0 [facility] Comment on above: Performed By: #### P T #### [facility] [address] [place] [address] MCV (RBC) [Entitic vol] 89.6 fL Normal 82.0-100.0 [facility] Comment on above: Performed By: #### P T #### [facility] [address] [place] [address] Monocytes (Bld) [#/Vol] 1.4 10*3/uL Critically high 0.2-0. 8 [facility] Comment on above: Performed By: #### P T #### [facility] [address] [place] [address] Monocytes/100 WBC (Bld) 7.9 % Normal [facility] Comment on above: Performed By: #### P T #### [facility] [address] [place] [address] Neutrophils (Bld) [#/Vol] 12.8 10*3/uL Critically high 1.4-6.5 [facility] Comment on above: Performed By: #### P T #### [facility] [address] [place] [address] Neutrophils/100 WBC (Bld) 75.1 % Normal [facility] Comment on above: Performed By: #### P T #### [facility] [address] [place] [address] Platelets (Bld) [#/Vol] 345 10*3/uL Normal 130-400 [facility] Comment on above: Performed By: #### P T #### [facility] [address] [place] [address] RBC (Bld) [#/Vol] 3.95 10*6/uL Low 4.20-5.40 [facility] Comment on above: Performed By: #### P T #### [facility] [address] [place] [address] WBC (Bld) [#/Vol] 17.0 10*3/uL Critically high 4.8-10.8 [facility] Comment on above: Performed By: #### P T #### [facility] [address] [place] [address] POCT Glucoseon 11-14-2018 Glucose [Mass/Vol] 116 mg/dL Critically high 60-115 [facility] Comment on above: Performed By: #### P T #### [facility] [address] [place] [address] POC Performed on ACCU-CHEK Normal [facility] Comment on above: Performed By: #### P T #### [facility] [address] [place] [address] XR LUMBAR SPINE (2-3 VIEWS)o n 11-14-2018 [...] Mohsen Childers MD 11/14/18 Final result Normal [facility] Basic Metabolic Panel Reflex Mgon 11-13-2018 Anion gap [Moles/Vol] 13 mmol/L Normal 9-15 [facility] Comment on above: Performed By: #### P T #### [facility] [address] [place] [address] Calcium [Mass/Vol] 9.0 mg/dL Normal 8.5-9.9 [facility] Comment on above: Performed By: #### P T #### [facility] [address] [place] [address] Chloride [Moles/Vol] 101 mmol/L Normal 95-107 [facility] Comment on above: Performed By: #### P T #### [facility] [address] [place] [address] CO2 [Moles/Vol] 24 mmol/L Normal 20-31 [facility] Comment on above: Performed By: #### P T #### [facility] [address] [place] [address] Creatinine [Mass/Vol] 0.62 mg/dL Normal 0.50-0.90 [facility] Comment on above: Performed By: #### P T #### [facility] [address] [place] [address] GFR/1.73 sq M predicted among blacks MDRD (S/P/Bld) [Vol rate/Area] mL/min/{1.73_m2} Normal >60 [facility] Comment on above: Result Comment: >60 mL/min/1.73m2 EGFR, calc. for ages 18 and older using the MDRD formula (not corrected for weight), is valid for stable renal function. Performed By: #### P T #### [facility] [address] [place] [address] GFR/1.73 sq M.predicted MDRD (S/P/Bld) [Vol rate/Area] mL/min/{1.73_m2} Normal >60 [facility] Comment on above: Result Comment: >60 mL/min/1.73m2 EGFR, calc. for ages 18 and older using the MDRD formula (not corrected for weight), is valid for stable renal function. Performed By: #### P T #### [facility] [address] [place] [address] Glucose [Mass/Vol] 136 mg/dL Critically high 70-99 [facility] Comment on above: Performed By: #### P T #### [facility] [address] [place] [address] Potassium reflex Mg 3.6 mEq/L Normal 3.4-4.9 [facility] Comment on above: Performed By: #### P T #### [facility] [address] [place] [address] Sodium [Moles/Vol] 138 mmol/L Normal 135-144 [facility] Comment on above: Performed By: #### P T #### [facility] [address] [place] [address] Urea nitrogen [Mass/Vol] 7 mg/dL Low 8-23 [facility] Comment on above: Performed By: #### P T #### [facility] [address] [place] [address] CBC With Platelet No Differe ntialon 11-13-2018 Erythrocyte distribution width (RBC) [Ratio] 14.2 % Normal 11.5-14.5 [facility] Comment on above: Performed By: #### P T #### [facility] [address] [place] [address] Hematocrit (Bld) [Volume fraction] 40.3 % Normal 37.0-47.0 [facility] Comment on above: Performed By: #### P T #### [facility] [address] [place] [address] Hemoglobin (Bld) [Mass/Vol] 13.1 g/dL Normal 12.0-16.0 [facility] Comment on above: Performed By: #### P T #### [facility] [address] [place] [address] MCH (RBC) [Entitic mass] 29.1 pg Normal 27.0-31.3 [facility] Comment on above: Performed By: #### P T #### [facility] [address] [place] [address] MCHC (RBC) [Mass/Vol] 32.4 % Low 33.0-37.0 [facility] Comment on above: Performed By: #### P T #### [facility] [address] [place] [address] MCV (RBC) [Entitic vol] 89.9 fL Normal 82.0-100.0 [facility] Comment on above: Performed By: #### P T #### [facility] [address] [place] [address] Platelets (Bld) [#/Vol] 394 10*3/uL Normal 130-400 [facility] Comment on above: Performed By: #### P T #### [facility] [address] [place] [address] RBC (Bld) [#/Vol] 4.48 10*6/uL Normal 4.20-5.40 [facility] Comment on above: Performed By: #### P T #### [facility] [address] [place] [address] WBC (Bld) [#/Vol] 11.8 10*3/uL Critically high 4.8-10.8 [facility] Comment on above: Performed By: #### P T #### [facility] [address] [place] [address] Culture, MRSA Screenon 11-13 Culture, MRSA Screen ORDERED BY: BRENNAN HERRON SOURCE: Nares COLLECTED: 11/13/18 09:29 ANTIBIOTICS AT DI.: RECEIVED : 11/13/18 09:29 Culture, MRSA Screen FINAL 11/14/18 08:02 No MRSA isolated Normal [facility] Comment on above: Performed By: #### P T #### [facility] [address] [place] [address] FLUORO FOR SURGICAL PROCEDUR ESon 11-13-2018 FLUORO [...] Mohsen Childers MD 11/13/18 Final result Normal [facility] Surgical Specimenon 11-14-19 19 Surgical Specimen [facility] [address] [place] [address] FINAL SURGICAL PATHOLOGY REPORT Patient Name: HIRAM MADRID Accession No: [id number] Age Sex: 1935 Location: [facility] [id number] Account No: [id number] Collected: 11/13/2018 Med Rec No: [id number] Received: 11/14/2018 Attend Phys: LENNY CORRAL Completed: [...] two cassettes after brief decalcification. UVALDO/NIKKY CPT: 55946 X1 [id number] X1 STANLEY GRAFF M.D. 11/15/2018 Electronically signed out by Page 1 of 1 [facility] Comment on above: Performed By: #### P TT #### [place] [address] Type and Screen Capture 3 sc rn cellon 11-13-2018 Type and Screen Capture 3 scrn cell PATIENT: MERCY GANDHI LOC: LCOPS,ORPOOL,NON BILL# : [id number] : 1935 SEX: F ORDERED BY: GOPAL AMIN ORDERED : 11/13/2018 08:10 COLLECTED: 11/13/2018 09:24 ORDER : [id number] RECEIVED : 11/13/2018 09:24 -- TEST NAME RESULT UNITS RANGES ABN FL ST ABORH Capture A POS F Antibody 3 Cell Scrn Captu NEG F - Normal [facility] Comment on above: Performed By: #### T S3C #### [facility] [address] [place] [address] XR SPINE ENTIRE (2-3 VIEWS)o n 11-13-2018 [...] Mohsen Childers MD 11/13/18 Final result Normal [facility] MRI LUMBAR SPINE W WO CONTRA [...] SIGNS OF UNDERLYING PATHOLOGY OR RECENT INJURY. [employer]) [facility] [place], [place] Joseph, Chpo Incoming Radiant Results From Good Photo/Alex and Ani - 11/05/2018 3:07 PM EDT EXAMINATION: MRI [...] SIGNS OF UNDERLYING PATHOLOGY OR RECENT INJURY. [facility] [place] MRI LUMBAR SPINE W WO CONTRAST [...] Pearl Varghese MD 11/05/18 Final result Normal [facility] Otheron 11-05-2018 Joseph, Chpo Incoming Radiant Results From [employer]/Pacs - 11/05/2018 1:21 PM EDT EXAMINATION: XR [...] AND POSTOPERATIVE FINDINGS, WITHOUT ACUTE SUPERIMPOSED ABNORMALITY. [facility] [place] EXAMINATION: XR LUMBAR SPINE (MIN 4 [...] POSTOPERATIVE FINDINGS, WITHOUT ACUTE SUPERIMPOSED ABNORMALITY. [place] XR CHEST (2 VW)on 11-05-2018 XR [...] Pearl Varghese MD 11/05/18 Final result Normal [facility] XR LUMBAR SPINE (MIN 4 VIEWS [...] Pearl Varghese MD 11/05/18 Final result Normal [facility] APTTon 11-04-2018 aPTT Coag (Bld) [Time] 27.9 s [place], [place] Comment on above: Effective 09/06/2018: Please note methodology and/or reference ranges have changed. aPTT - Heparin Therapeutic Range: 74.0 - 106 seconds C-Reactive Proteinon 019 CRP [Mass/Vol] 1.3 mg/L Normal 0.0-5.0 [facility] Comment on above: Performed By: #### C RP #### [facility] [address] [place] [address] CRP [Mass/Vol] 1.3 mg/L 0 - 5 mg/L [place], [place] CBC Auto Differentialon 10-21 Basophils (Bld) [#/Vol] 0.1 10*3/uL 0 - 0.2 K/u L [place] Basophils/100 WBC (Bld) 1.1 % M [place] Eosinophils (Bld) [#/Vol] 0.2 10*3/uL 0 - 0.7 K/uL [place] Eosinophils/100 WBC (Bld) 1.3 % [place] Erythrocyte distribution width (RBC) [Ratio] 13.9 % 11.5 - 14.5 % [place] Hematocrit (Bld) [Volume fraction] 41.3 % 37 - 47 % [place] Hemoglobin (Bld) [Mass/Vol] 14.3 g/dL 12 - 16 g/dL [place] Interpretation and review of laboratory results Abnormal [place] Lymphocytes (Bld) [#/Vol] 3.5 10*3/uL 1 - 4.8 K/uL [place] Lymphocytes/100 WBC (Bld) 28.2 % [place] MCH (RBC) [Entitic mass] 30.5 pg 27 - 31.3 p g [place] MCHC (RBC) [Mass/Vol] 34.6 % 33 - 37 % [place] MCV (RBC) [Entitic vol] 88.0 fL 82 - 100 fL [place] Monocytes (Bld) [#/Vol] 0.8 10*3/uL 0.2 - 0.8 K/uL [place] Monocytes/100 WBC (Bld) 6.8 % M [place] Neutrophils Absolute 7.7 K/uL High 1.4 - 6 .5 K/uL [place] Neutrophils/100 WBC (Bld) 62.6 % [place] Platelets (Bld) [#/Vol] 435 10*3/uL High 130 - 400 K/uL [place] RBC (Bld) [#/Vol] 4.69 10*6/uL [place] WBC (Bld) [#/Vol] 12.4 10*3/uL High 4.8 - 10.8 K/uL [place] CBC With Platelet and Differ entialon 11-04-2018 Basophils (Bld) [#/Vol] 0.1 10*3/uL Normal 0.0-0.2 [facility] Comment on above: Performed By: #### C BCWD #### [facility] [address] [place] [address] Basophils/100 WBC (Bld) 1.1 % Normal [facility] Comment on above: Performed By: #### C BCWD #### [facility] [address] [place] [address] Eosinophils (Bld) [#/Vol] 0.2 10*3/uL Normal 0.0-0.7 [facility] Comment on above: Performed By: #### C BCWD #### [facility] [address] [place] [address] Eosinophils/100 WBC (Bld) 1.3 % Normal [facility] Comment on above: Performed By: #### C BCWD #### [facility] [address] [place] [address] Erythrocyte distribution width (RBC) [Ratio] 13.9 % Normal 11.5-14.5 [facility] Comment on above: Performed By: #### C BCWD #### [facility] [address] [place] [address] Hematocrit (Bld) [Volume fraction] 41.3 % Normal 37.0-47.0 [facility] Comment on above: Performed By: #### C BCWD #### [facility] [address] [place] [address] Hemoglobin (Bld) [Mass/Vol] 14.3 g/dL Normal 12.0-16.0 [facility] Comment on above: Performed By: #### C BCWD #### [facility] [address] [place] [address] Lymphocytes (Bld) [#/Vol] 3.5 10*3/uL Normal 1.0-4.8 [facility] Comment on above: Performed By: #### C BCWD #### [facility] [address] [place] [address] Lymphocytes/100 WBC (Bld) 28.2 % Normal [facility] Comment on above: Performed By: #### C BCWD #### [facility] [address] [place] [address] MCH (RBC) [Entitic mass] 30.5 pg Normal 27.0-31.3 [facility] Comment on above: Performed By: #### C BCWD #### [facility] [address] [place] [address] MCHC (RBC) [Mass/Vol] 34.6 % Normal 33.0-37.0 [facility] Comment on above: Performed By: #### C BCWD #### [facility] [address] [place] [address] MCV (RBC) [Entitic vol] 88.0 fL Normal 82.0-100.0 M [facility] Comment on above: Performed By: #### C BCWD #### [facility] [address] [place] [address] Monocytes (Bld) [#/Vol] 0.8 10*3/uL Normal 0.2-0.8 [facility] Comment on above: Performed By: #### C BCWD #### [facility] [address] [place] [address] Monocytes/100 WBC (Bld) 6.8 % Normal M [facility] Comment on above: Performed By: #### C BCWD #### [facility] [address] [place] [address] Neutrophils (Bld) [#/Vol] 7.7 10*3/uL Critically high 1.4-6.5 [facility] Comment on above: Performed By: #### C BCWD #### [facility] [address] [place] [address] Neutrophils/100 WBC (Bld) 62.6 % Normal [facility] Comment on above: Performed By: #### C BCWD #### [facility] [address] [place] [address] Platelets (Bld) [#/Vol] 435 10*3/uL Critically high 130-40 0 [facility] Comment on above: Performed By: #### C BCWD #### [facility] [address] [place] [address] RBC (Bld) [#/Vol] 4.69 10*6/uL Normal 4.20-5.40 [facility] Comment on above: Performed By: #### C BCWD #### [facility] [address] [place] [address] WBC (Bld) [#/Vol] 12.4 10*3/uL Critically high 4.8-10.8 [facility] Comment on above: Performed By: #### C BCWD #### [facility] [address] [place] [address] Comprehensive Metabolic Pane bebeto 11-04-2018 Anion gap [Moles/Vol] 14 mmol/L Normal 9-15 [facility] Comment on above: Order Comment: CALL [facility] LCED tel. [phone], Potassium results called to and read back by onofre Millan RN, 11/04/2018 16:24, by WEBAM Performed By: #### C MP #### [facility] [address] [place] [address] Bilirubin [Mass/Vol] 0.4 mg/dL Normal 0.2-0.7 [facility] Comment on above: Order Comment: CALL [facility] ED tel. [phone], Potassium results called to and read back by onofre Millan RN, 11/04/2018 16:24, by WEBAM Performed By: #### C MP #### [facility] [address] [place] [address] GFR/1.73 sq M predicted among blacks MDRD (S/P/Bld) [Vol rate/Area] mL/min/{1.73_m2} Normal >60 [facility] Comment on above: Order Comment: CALL [facility] ED tel. [phone], Potassium results called to and read back by onofre Millan RN, 11/04/2018 16:24, by WEBAM Result Comment: >60 mL/min/1.73m2 EGFR, calc. for ages 18 and older using the MDRD formula (not corrected for weight), is valid for stable renal function. Performed By: #### C MP #### [facility] [address] [place] [address] GFR/1.73 sq M.predicted MDRD (S/P/Bld) [Vol rate/Area] mL/min/{1.73_m2} Normal >60 [facility] Comment on above: Order Comment: CALL [facility] tel. [phone], Potassium results called to and read back by onofre Millan RN, 11/04/2018 16:24, by WEBAM Result Comment: >60 mL/min/1.73m2 EGFR, calc. for ages 18 and older using the MDRD formula (not corrected for weight), is valid for stable renal function. Performed By: #### C MP #### [facility] [address] [place] [address] Albumin [Mass/Vol] 4.5 g/dL Normal 3.5-4.6 [facility] [place] [place] Comment on above: Order Comment: CALL [facility] tel. [phone], Potassium results called to and read back by onofre Millan RN, 11/04/2018 16:24, by WEBAM Performed By: #### C MP #### [facility] [address] [place] [address] ALP [Catalytic activity/Vol] 76 U/L Normal 40-130 [facility] [place] [place] Comment on above: Order Comment: CALL [facility] tel. [phone], Potassium results called to and read back by onofre Millan RN, 11/04/2018 16:24, by WEBAM Performed By: #### C MP #### [facility] [address] [place] [address] ALT [Catalytic activity/Vol] 15 U/L Normal 0-33 [facility] [place] [place] Comment on above: Order Comment: CALL [facility] tel. [phone], Potassium results called to and read back by onofre Millan RN, 11/04/2018 16:24, by WEBAM Performed By: #### C MP #### [facility] [address] [place] [address] AST [Catalytic activity/Vol] 20 U/L Normal 0-35 [facility] [place] [place] Comment on above: Order Comment: CALL [facility] tel. [phone], Potassium results called to and read back by onofre Millan RN, 11/04/2018 16:24, by WEBAM Performed By: #### C MP #### [facility] [address] [place] [address] Calcium [Mass/Vol] 9.9 mg/dL Normal 8.5-9.9 [facility] [place] [place] Comment on above: Order Comment: CALL [facility] tel. [phone], Potassium results called to and read back by onofre Millan RN, 11/04/2018 16:24, by WEBAM Performed By: #### C MP #### [facility] [address] [place] [address] Chloride [Moles/Vol] 96 mmol/L Normal 95-107 [place], [place] Comment on above: Order Comment: CALL [facility] tel. [phone], Potassium results called to and read back by onofre Millan RN, 11/04/2018 16:24, by WEBAM Performed By: #### C MP #### [facility] [address] [facility] [place] [address] CO2 [Moles/Vol] 24 mmol/L Normal 20-31 [place], [place] Comment on above: Order Comment: CALL [facility] tel. [phone], Potassium results called to and read back by onofre Millan RN, 11/04/2018 16:24, by WEBAM Performed By: #### C MP #### [facility] [address] [place] [address] Creatinine [Mass/Vol] 0.67 mg/dL Normal 0.50-0.90 [place] Comment on above: Order Comment: CALL [facility] tel. [phone], Potassium results called to and read back by onofre Millan RN, 11/04/2018 16:24, by WEBAM Performed By: #### C MP #### [facility] [address] [facility] [place] [address] Globulin (S) [Mass/Vol] 2.8 g/dL Normal 2.3-3.5 [place], [place] Comment on above: Order Comment: CALL [facility] tel. [phone], Potassium results called to and read back by onofre Millan RN, 11/04/2018 16:24, by WEBAM Performed By: #### C MP #### [facility] [address] [place] [address] Glucose [Mass/Vol] 109 mg/dL Critically high 70-99 M [place] Comment on above: Order Comment: CALL [employer] tel. [phone], Potassium results called to and read back by onofre Millan RN, 11/04/2018 16:24, by WEBAM Performed By: #### C MP #### [facility] [address] [place] [address] Potassium [Moles/Vol] 3.0 mmol/L Critically low 3.4-4.9 [place] Comment on above: Order Comment: CALL [facility] tel. [phone], Potassium results called to and read back by onofre Millan RN, 11/04/2018 16:24, by WEBAM Performed By: #### C MP #### [facility] [address] [place] [address] Protein [Mass/Vol] 7.3 g/dL Normal 6.3-8.0 [place] Comment on above: Order Comment: CALL [facility] tel. [phone], Potassium results called to and read back by onofre Millan RN, 11/04/2018 16:24, by WEBAM Performed By: #### C MP #### [facility] [address] [place] [address] Sodium [Moles/Vol] 134 mmol/L Low 135-144 [place] Comment on above: Order Comment: CALL [facility] tel. [phone], Potassium results called to and read back by onofre Millan RN, 11/04/2018 16:24, by WEBAM Performed By: #### C MP #### [facility] [address] [address] Urea nitrogen [Mass/Vol] 8 mg/dL Normal 8-23 [place] Comment on above: Order Comment: CALL [facility] tel. [phone], Potassium results called to and read back by onofre Millan RN, 11/04/2018 16:24, by WEBAM Performed By: #### C MP #### [facility] [address] [place] [address] Anion gap [Moles/Vol] 14 mmol/L [place] Bilirubin Ql (U) 0.4 mg/dL 0.2 - 0.7 mg/dL [place] GFR >60.0 >60 [place] Comment on above: >60 mL/min/1.73m2 EG FR, calc. for ages 18 and older using the MDRD formula (not corrected for weight), is valid for stable renal function. GFR Non- >60.0 >60 [place] Comment on above: >60 mL/min/1.73m2 EG FR, calc. for ages 18 and older using the MDRD formula (not corrected for weight), is valid for stable renal function. Interpretation and review of laboratory results Abnormal [place] Potassium [Moles/Vol] CALL [facility] tel . [phone], Potassium results called to and read back by onofre Millan RN, 11/04/2018 16:24, by TAMMY [place] Partial Thromboplastin Timeo n 11-04-2018 aPTT Coag (Bld) [Time] 27.9 s Normal 24.4-36.8 [facility] Comment on above: Result Comment: Effe ctive 09/06/2018: Please note methodology and/or reference ranges have changed. aPTT - Heparin Therapeutic Range: 74.0 - 106 seconds Performed By: #### P TT #### [facility] [address] [facility] Prothrombin Timeon 9 INR Coag (PPP) [Relative time] 0.9 {INR} Normal [facility] Comment on above: Result Comment: Warf camden Therapy INR Therapeutic: 2.0-3.0 With Mechanical Valve: >2.5 Low-intensity Therapeutic Range: 1.5-2.0 Mod-intensity Therapeutic Range: 2.0-3.0 High-intensity Therapeutic Range: 2.5-3.5 HIgh-intensity Therapeutic Range: 3.0-4.0 Common Critical/Alarm Value: 5.0 Common Upper Limit Reported: 10.0 Effective 08/30/2018: Please note methodology and/or reference ranges have changed. Performed By: #### P T #### [facility] [address] [place] [address] PT Coag (PPP) [Time] 12.1 s Low 12.3-14.9 [facility] Comment on above: Result Comment: Effe ctive 08/30/18 Please note methodology and/or reference ranges have changed. Performed By: #### P T #### [facility] [address] [place] [address] Protime-INRon 11-04-2018 INR Coag (PPP) [Relative time] 0.9 {INR} [place] Comment on above: Warfarin Therapy INR Therapeutic: 2.0-3.0 With Mechanical Valve: >2.5 Low-intensity Therapeutic Range: 1.5-2.0 Mod-intensity Therapeutic Range: 2.0-3.0 High-intensity Therapeutic Range: 2.5-3.5 HIgh-intensity Therapeutic Range: 3.0-4.0 Common Critical/Alarm Value: 5.0 Common Upper Limit Reported: 10.0 Effective 08/30/2018: Please note methodology and/or reference ranges have changed. Interpretation and review of laboratory results Abnormal [place] PT Coag (PPP) [Time] 12.1 s Low [place], [place] Comment on above: Effective 08/30/18 Please note methodology and/or reference ranges have changed. Sedimentation Rateon 019 Sedimentation Rate 12 mm Normal 0-30 [facility] Comment on above: Performed By: #### E SR #### [facility] [address] [place] [address] Sed Rate 12 mm 0 - 30 mm [place] Vital Signs Date Time Vital Sign Value Performing Clinician Facility 08-07-2024 13: Body height 154.9 cm Yosi Atkins DPM FACFAS Work Phone: [facility] 08-07-2024 13:040 Body mass index (BMI) [Ratio] 26.83 kg/m2 Yosi Atkins DPM FACFAS Work Phone: [facility] 08-07-2024 13:19-0400 Body weight 64.41 kg Yosi Dolce DPM FACFAS Work Phone: [facility] 08-07-2024 13:19-0400 Diastolic blood pressure 81 mm[Hg] Yosi Dolce DPM FACFAS Work Phone: [facility] 08-07-2024 13:19-0400 Heart rate 75 /min Yosi Dolce DPM FACFAS Work Phone: [facility] 08-07-2024 13:19-0400 Systolic blood pressure 147 mm[Hg] Yosi Dolce DPM FACFAS Work Phone: [facility] 07-24-2024 13:28-0400 Body height 154.9 cm Yosi Dolce DPM FACFAS Work Phone: [facility] 07-24-2024 13:28-0400 Body mass index (BMI) [Ratio] 26.83 kg/m2 Yosi Dolce DPM FACFAS Work Phone: [facility] 07-24-2024 13:28-0400 Body weight 64.41 kg Yosi Dolce DPM FACFAS Work Phone: [facility] 07-24-2024 13:28-0400 Diastolic blood pressure 84 mm[Hg] Yosi Dolce DPM FACFAS Work Phone: [facility] 07-24-2024 13:28-0400 Heart rate 77 /min Yosi Dolce DPM FACFAS Work Phone: [facility] 07-24-2024 13:28-0400 Systolic blood pressure 158 mm[Hg] Yosi Dolce DPM FACFAS Work Phone: [facility] 05-08-2024 15:19-0400 Body height 154.94 cm Mami Daniels MD Work Phone: [facility] 05-08-2024 15:19-0400 Body mass index (BMI) [Ratio] 27.8 kg/m2 Mami Daniels MD Work Phone: [facility] 05-08-2024 15:19-0400 Body weight 67 kg Mami Daniels MD Work Phone: [facility] 01-25-2024 16:23-0500 Body temperature 98.1 [degF] Mami Daniels MD Work Phone: [facility] 01-25-2024 16:23-0500 Diastolic blood pressure 68 mm[Hg] Mami Daniels MD Work Phone: [facility] 01-25-2024 16:23-0500 Heart rate 72 /min Mami Daniels MD Work Phone: [facility] 01-25-2024 16:23-0500 Respiratory rate 16 /min Mami Daniels MD Work Phone: [facility] 01-25-2024 16:23-0500 SaO2% (BldA) [Mass fraction] 94 % Mami Daniels MD Work Phone: [facility] 01-25-2024 16:23-0500 Systolic blood pressure 157 mm[Hg] Mami Daniels MD Work Phone: [facility] 01-25-2024 05:43-0500 Body weight 68.8 kg Mami Daniels MD Work Phone: [facility] 01-23-2024 12:37-0500 Body height 154.94 cm Mami Daniels MD Work Phone: [facility] 05-03-2023 14:21-0400 Blood Pressure Location [facility] [place] 05-03-2023 14:21-0400 Diastolic blood pressure 82 mm[Hg] [facility] [place] 05-03-2023 14:21-0400 Heart rate 76 /min Turner [facility] [place] 05-03-2023 14:21-0400 Respiratory rate 16 /min Turner [facility] [place] 05-03-2023 14:21-0400 Systolic blood pressure 156 mm[Hg] [facility] [place] 04-15-2023 13:38-0500 Diastolic blood pressure 70 mm[Hg] MD Mami Daniels Work Phone: [facility] 04-15-2023 13:38-0500 Heart rate 76 /min MD Mami Daniels Work Phone: [facility] 04-15-2023 13:38-0500 Respiratory rate 18 /min MD Mami Daniels Work Phone: [facility] 04-15-2023 13:38-0500 SaO2% (BldA) [Mass fraction] 97 % MD Mami Daniels Work Phone: [facility] 04-15-2023 13:38-0500 Systolic blood pressure 160 mm[Hg] MD Mami Daniels Work Phone: [facility] 04-15-2023 12:07-0500 Body height 154.94 cm MD Mami Daniels Work Phone: [facility] 04-15-2023 12:07-0500 Body temperature 97.8 [degF] MD Mami Daniels Work Phone: [facility] 04-15-2023 12:07-0500 Body weight 60.5 kg MD Mami Daniels Work Phone: [facility] 04-06-2023 11:51-0500 Body temperature 97.9 [degF] MD Mami Daniels Work Phone: [facility] 04-06-2023 11:51-0500 Diastolic blood pressure 76 mm[Hg] MD Mami Daniels Work Phone: [facility] 04-06-2023 11:51-0500 Heart rate 84 /min MD Mami Daniels Work Phone: [facility] 04-06-2023 11:51-0500 Respiratory rate 18 /min MD Mami Daniels Work Phone: [facility] 04-06-2023 11:51-0500 SaO2% (BldA) [Mass fraction] 97 % MD Mami Daniels Work Phone: [facility] 04-06-2023 11:51-0500 Systolic blood pressure 146 mm[Hg] MD Mami Daniels Work Phone: [facility] 04-06-2023 06:00-0500 Body weight 58.6 kg MD Mami Daniels Work Phone: [facility] 04-04-2023 13:15-0500 Body height 154.94 cm MD Mami Daniels Work Phone: [facility] 12-22-2022 11:40-0400 Blood Pressure Location MIKAYLA WEISS [facility] 12-22-2022 11:40-0400 Diastolic blood pressure 84 mm[Hg] MIKAYLA WEISS [facility] 12-22-2022 11:40-0400 Systolic blood pressure 124 mm[Hg] MIKAYLA WEISS [facility] 08-06-2022 00:10-0400 Body temperature 97.3 [degF] MD Mami Daniels Work Phone: [facility] 08-06-2022 00:10-0400 Diastolic blood pressure 74 mm[Hg] MD Mami Daniels Work Phone: [facility] 08-06-2022 00:10-0400 Heart rate 80 /min MD Mami Daniels Work Phone: [facility] 08-06-2022 00:10-0400 Respiratory rate 18 /min MD Mami Daniels Work Phone: [facility] 08-06-2022 00:10-0400 SaO2% (BldA) [Mass fraction] 96 % MD Mami Daniels Work Phone: [facility] 08-06-2022 00:10-0400 Systolic blood pressure 177 mm[Hg] MD Mami Daniels Work Phone: [facility] 08-05-2022 19:51-0400 Body height 154.94 cm MD Mami Daniels Work Phone: [facility] 08-05-2022 19:51-0400 Body weight 67.6 kg MD Mami Daniels Work Phone: [facility] 11-20-2018 07:02-0400 Body Temperature 97 [degF] Mary Vega [employer], [place] 11-20-2018 07:02-0400 BP Diastolic 61 mm[Hg] Mary Vega [employer] 11-20-2018 07:02-0400 BP Systolic 153 mm[Hg] [facility] [place] 11-20-2018 07:02-0400 Pulse (Heart Rate) 75 /min Mary Vega [facility] [place] 11-20-2018 07:02-0400 Pulse Oximetry 97 % [facility] [place] 11-20-2018 07:02-0400 Respiratory Rate 17 /min [facility] 11-17-2018 05:54-0400 BMI (Body Mass Index) 27.62 kg/m2 [facility] 11-17-2018 05:54-0400 Body weight 66.3 kg Mary Vega [facility] [place] 11-15-2018 15:58-0400 Height 154.9 cm Mary Vega [facility] [place] 11-05-2018 07:30-0400 BP Diastolic 57 mm[Hg] [facility] [facility] [place] 11-05-2018 07:30-0400 BP Systolic 135 mm[Hg] [facility] [place] 11-05-2018 07:30-0400 Pulse (Heart Rate) 70 /min [facility] [place] 11-05-2018 07:30-0400 Pulse Oximetry 97 % [facility] [place] 11-04-2018 20:06-0400 Body Temperature 98.4 [degF] [facility] [place] 11-04-2018 20:06-0400 Respiratory Rate 16 /min Lenny Corral [facility], [place] 11-04-2018 14:56-0400 BMI (Body Mass Index) 27.4 kg/m2 [facility], [place] 11-04-2018 14:56-0400 Body weight 65.77 kg [facility] [place] 11-04-2018 14:56-0400 Height 154.9 cm [facility] [place] Encounters Encounter Date Encounter Type Care Provider Facility Start: 10-11-2024 End: 10-11-2024 ambulatory Mami Daniels MD Work Phone: [facility] Work Phone: Start: 10-11-2024 End: 10-11-2024 Departed Referred Mami Rios MD -[facility] Start: 08-07-2024 End: 08-07-2024 Bamboo flowsheet Yosi Hung Hollidayce DPM FACFAS Work Phone: [facility] Start: 08-07-2024 End: 08-07-2024 Bamboo flowsheet Yosi Hung Dolce DPM FACFAS Work Phone: [facility] Start: 08-07-2024 End: 08-07-2024 Office outpatient visit 15 minutes Yosi Atkins DPM FACFAS Work Phone: [facility] Comment on above: Abscess, toe, left ( Primary Dx); Onychocryptosis; Pain in left toe(s); Onychomycosis; Pain in right toe(s) Start: 08-07-2024 End: 08-07-2024 ambulatory YOSI ATKINS Not Available Start: 07-24-2024 End: 07-24-2024 Bamboo flowsheet Yosi Hung Hollidayce DPM FACFAS Work Phone: [facility] Start: 07-24-2024 End: 07-24-2024 Bamboo flowsheet Yosi Hung Dolce DPM FACFAS Work Phone: [facility] Start: 07-24-2024 End: 07-24-2024 ambulatory YOSI ATKINS Not Available Start: 07-24-2024 End: 07-24-2024 Office outpatient new 30 minutes Yosi Hollidayinge DPM FACFAS Work Phone: [facility] Comment on above: Onychocryptosis (Sole stevie Dx); Abscess, toe, left; Pain in left toe(s) Start: 05-08-2024 End: 05-08-2024 ambulatory Mami Daniels MD Work Phone: [facility] Work Phone: Start: 05-08-2024 End: 05-08-2024 Patient encounter procedure Mami Daniels MD Work Phone: [facility] Physician [facility] Work Phone: Start: 04-30-2024 End: 04-30-2024 Patient encounter procedure Mami Daniels MD Work Phone: [facility]-CT Scan [facility] [place] Work Phone: Start: 04-30-2024 End: 04-30-2024 ambulatory Mami Daniels MD Work Phone: [facility] Work Phone: Start: 04-17-2024 End: 04-17-2024 ambulatory Mami Daniels MD Work Phone: [facility] Work Phone: Start: 04-17-2024 End: 04-17-2024 Patient encounter procedure Mami Daniels MD Work Phone: [facility] Physician [facility] Work Phone: Start: 04-13-2024 End: 04-13-2024 ambulatory Mami Daniels MD Work Phone: [facility] Work Phone: Start: 04-13-2024 End: 04-13-2024 Patient encounter procedure Mami Daniels MD Work Phone: [facility]-XRay [facility] Work Phone: Start: 03-25-2024 End: 03-25-2024 ambulatory Mami Daniels MD Work Phone: [facility] Work Phone: Start: 03-25-2024 End: 03-25-2024 Departed Referred Mami Daniels MD Work Phone: [facility]-Lab [facility] Work Phone: Start: 03-25-2024 End: 03-25-2024 Patient encounter procedure Mami Daniels MD Work Phone: [facility]-Lab [facility] Work Phone: Start: 03-06-2024 End: 03-06-2024 ambulatory Mami Daniels MD Work Phone: [facility] Work Phone: Start: 03-06-2024 End: 03-06-2024 Patient encounter procedure Mami Daniels MD Work Phone: [facility] Physician [facility] Work Phone: Start: 03-01-2024 End: 03-01-2024 Patient encounter procedure Mami Daniels MD Work Phone: [facility]-XRay [facility] Work Phone: Start: 03-01-2024 End: 03-01-2024 ambulatory Mami Daniels MD Work Phone: [facility] Work Phone: Start: 01-24-2024 End: 01-25-2024 Evaluation and management of inpatient Obaydah M Daromar Facility:[facility] Start: 01-24-2024 Non-patient / Non-visit Dayana Daniels MD Work Phone: [facility] Physician [facility] Work Phone: Start: 01-24-2024 Non-patient / Non-visit Dayana Daniels MD Work Phone: [facility] Work Phone: Start: 06-29-2023 ambulatory MIKAYLA WEISS Claudiafredis ty:EU Natalya Start: 06-28-2023 End: 06-28-2023 ambulatory Turner R NILL Facility:[facility] Start: 06-28-2023 End: 06-28-2023 Patient encounter procedure Turner R NILL [facility] Start: 06-21-2023 End: 06-21-2023 ambulatory MD Mami aDniels Work Phone: [facility] Work Phone: Start: 06-21-2023 End: 06-21-2023 Departed Referred MD Mami Daniels Work Phone: [facility]-LAB [facility] Start: 06-21-2023 End: 06-21-2023 ambulatory Turner R NILL Facility:CD:[id number] Start: 05-03-2023 End: 05-03-2023 ambulatory Mami Daniels Facility:[facility] Start: 05-03-2023 End: 05-03-2023 Patient encounter procedure Turner R NILL General Surgery N[facility] Start: 04-15-2023 End: 04-15-2023 Emergency department patient visit MD Mami Daniels Work Phone: [facility]-Emergency Room Work Phone: Start: 04-13-2023 ambulatory Turner NILL Facility:[facility] Start: 04-12-2023 Non-patient / Non-visit MD Aime Daniels Work Phone: [facility] Work Phone: Start: 04-03-2023 Non-patient / Non-visit MD Aime Daniels Work Phone: [facility] Physician [facility] Nephrology Work Phone: Start: 04-02-2023 Non-patient / Non-visit MD Aime Daniels Work Phone: [facility] Physician [facility] Out[facility] Work Phone: Start: 04-02-2023 End: 04-06-2023 Evaluation and management of inpatient MD Mami Daniels Work Phone: [facility] [place] [facility] Work Phone: Start: 01-11-2023 End: 01-11-2023 ambulatory [facility] Start: 12-22-2022 End: 12-22-2022 ambulatory MIKAYLA WEISS Facility:[facility] Start: 12-22-2022 End: 12-22-2022 Patient encounter procedure MIKAYLA WEISS [facility] Start: 10-14-2022 End: 10-14-2022 ambulatory [facility] Start: 08-05-2022 End: 08-06-2022 Emergency department patient visit MD Mami Daniels Work Phone: [facility]-Emergency Room Work Phone: Start: 06-13-2022 End: 06-14-[address] MAMI DANIELS . Facility:[facility] Start: 05-19-[address] MAMI DANIELS . Facili ty:[facility] Start: 04-18-2022 End: 04-19-[address] VALERIE DARDEN Facility:[facility] Start: 04-04-2022 End: 04-04-2022 ambulatory [facility] Start: 01-30-[address] MAMI DANIELS . Facili ty:[facility] Start: 01-04-2022 End: 01-05-[address] MAMI DANIELS . Facility:[facility] Start: 12-26-2021 End: 12-29-2021 Evaluation and management of inpatient DR MAMI DANIELS . Facility:[facility] Start: 12-02-2021 End: 01-04-2022 Pre-admission assessment Alie Santos [facility] Start: 11-30-2021 End: 12-01-[address] JESUS BRUNO Facility:[facility] Start: 11-09-2021 End: 11-10-[address] CALISTA ACEVES Facility:[facility] Start: 08-06-2021 End: 08-07-[address] VALERIE DARDEN Facility:[facility] Start: 07-28-2021 End: 07-29-[address] CALISTA ACEVES Facility:[facility] Start: 06-22-2021 End: 06-22-2021 Patient encounter procedure VALERIE DARDEN [facility] Start: 11-15-2018 End: 11-20-2018 Evaluation and management of inpatient MARY VEGA [facility] Start: 11-15-2018 End: 11-20-2018 Evaluation and management of inpatient Mary Vega Work Phone: [facility] Comment on above: Spinal stenosis of l umbosacral region (Primary Dx); Impaired mobility; Vasovagal syncope Start: 11-13-2018 End: 11-15-2018 Evaluation and management of inpatient LENNY CORRAL [facility] Start: 11-13-2018 End: 11-15-2018 Patient encounter procedure LENNY CORRAL [facility] Start: 11-04-2018 End: 11-05-2018 Patient encounter procedure CALISTA ACEVES [facility] Start: 11-04-2018 End: 11-05-2018 Emergency department patient visit Lenny Corral Work Phone: [facility] Comment on above: Lumbar radiculopathy (Primary Dx); Intractable low back pain Start: 04-19-2018 End: 04-20-2018 Patient encounter procedure DEFAULT PHYSICIAN Facility:[facility] Procedures Date Procedure Procedure Detail Performing Clinician Start: 04-30-2024 CT cervical spine wi thout contrast Mami Daniels MD Work Phone: Start: 04-30-2024 X-ray of cervical spine Mami Daniels MD Work Phone: Start: 04-12-2024 X-ray of cervical spine Maim Daniels MD Work Phone: Start: 03-01-2024 X-ray [...] MARQUEZ ACEVES Start: 11-19-2018 INCENTIVE SPIROMETRY RT CALISAT ACEVES Start: 11-19-2018 INCENTIVE SPIROMETRY RT CALISTA [...] difrntl wbc Lenny Corral Work Phone: Start: 11-19-2018 C-reactive protein [...] 11-17-2018 Sedimentation rate r bc automated Mary Gary Work Phone: Start: 11-17-2018 Dup-scan xtr veins [...] Work Phone: Start: 11-16-2018 DAILY WEIGHTS CALISTA PATINO Start: 11-16-2018 INCENTIVE SPIROMETRY RT CALISTA [...] ICAL VTE PROPHYLAXIS CALISTA ACEVES Start: 11-15-2018 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 YOSI ACEVES Start: 11-15-2018 [...] above: Performed By: #### P TT #### [facility] [address] [place] [address] Start: 11-15-2018 Urnls dip stick/tabl [...] Blood count complete auto&auto difrntl wbc Mary Gary Work Phone: Start: 11-15-2018 Culture bacterial bl ood aerobic w/id isolates Mary Vega Work Phone: Start: 11-15-2018 INCENTIVE SPIROMETRY RT CALISTA ACEVES Start: 11-15-2018 INCENTIVE SPIROMETRY RT CALISTA ACEVES Start: 11-15-2018 PULSE OXIMETRY, CONTINUOUS CALISTA ACEVES Start: 11-15-2018 DISCHARGE PATIENT MARQUEZ ACEVES Start: 11-15-2018 Blood count complete auto&auto difrntl wbc CALISTAPRESLEY ACEVES Start: 11-15-2018 Blood count complete automated [...] CALISTA KETAN Start: 11-14-2018 DAILY WEIGHTS CALISTA BR AUN Start: 11-14-2018 OT EVAL AND TREAT MARQUEZ [...] STAFFORD UN Start: 11-13-2018 WOUND CARE CALISTA RIVERA UN Start: 11-13-2018 FULL CODE CALISTA STAFFORD UN Start: 11-13-2018 Blood count complete automated CALISTA ACEVES Start: 11-13-2018 Comprehensive metabo lic panel CALISTA ACEVES Start: 11-13-2018 PATIENT STATUS (FROM ED OR OR/PROCEDURAL) CALISTA ACEVES Start: 11-13-2018 TRANSFER PATIENT CLAISTA ACEVES Start: 11-13-2018 FLUORO FOR SURGICAL PROCEDURES [...] CALISTA KETAN Start: 11-05-2018 FULL CODE CALISTA RIVERA UN [...] procedure 11/06/2024 1:10 PM EDT Procedure Visit [facility] [address] [place] [id number] Yosi Atkins, DPM FACFAS [address] [facility] [address] [place] [address] [facility] Start: 10-11-2024 Bacteria identified in Urine by Culture Urine Culture [facility] Start: 10-11-2024 Urine culture [facility] Start: 08-07-2024 End: 08-07-2024 Patient encounter procedure 08/07/2024 1:20 PM EDT Office Visit [facility] [address] [place] [id number] Yosi Atkins, DPM FACFAS [address] [place] [address] Arrived [facility] Comment on above: Arrived Start: 01-25-2024 [facility] Start: 01-23-2024 [facility] Start: 01-23-2024 Consultation [facility] Start: 01-23-2024 Hospital admission [facility] Start: 04-06-2023 [facility] Start: 04-04-2023 Administration of prophylactic treatment [facility] Start: 04-02-2023 Referral to copy center specialist [facility] Start: 04-02-2023 Hospital admission [facility] Start: 08-05-2022 CT Abdomen and Pelvi s WO contrast [facility] Start: 08-05-2022 CT of abdomen and pe lvis without contrast CT abdomen pelvis wo con [facility] Start: 11-19-2019 Creatinine monitoring Creatinine mon [place], [place] Start: 11-19-2019 Potassium monitoring Potassium monit [place], [place] Start: 11-05-2019 Creatinine monitoring Creatinine mon [place], [place] Start: 11-05-2019 Potassium monitoring Potassium monit [place], [place] Start: 12-04-2018 End: 12-04-2018 Office Visit 12/04/2018 Office Visit Neurosurgery Lenny Corral MD [email or web address] [place], [place] [id number] [facility] Start: 11-30-2018 End: 11-30-2018 Office Visit 11/30/2018 Office Visit Neurosurgery Lenny Corral MD [email or web address], [address] [place], [place] [address] [facility] Start: 11-23-2018 End: 11-23-2018 Office Visit 11/23/2018 Office Visit Neurosurgery Lenny Corral MD [address] [place] [address] [facility] Start: 11-13-2018 Annual Wellness Visi t (AWV) Annual Wellness Visit (AWV) [place], [place] Start: 10-21-2018 Influenza vaccination Flu vaccine (# 1) [place], [place] Start: 2001 DEXA (modify frequen cy per FRAX score) DEXA (modify frequency per FRAX score) [place], [place] Start: 2001 Pneumococcal 65+ yea rs Vaccine (1 of 2 - PCV13) Pneumococcal 65+ years Vaccine (1 of 2 - PCV13) [place], [place] Start: 1986 Shingles Vaccine (1 of 2) Shingles Vaccine (1 of 2) [place] Start: 11-13-1955 DTaP/Tdap/Td vaccine (1 - Tdap) DTaP/Tdap/Td vaccine (1 - Tdap) [place], [place] Start: 1946 Lipid screen Lipid screen [place], [place] CT Cervical spine WO contrast [facility] Culture Blood #1 Culture Blood # 1 Microbiology STAT 11/15/2018 4:37 PM EDT [place] Culture Blood #2 Culture Blood # 2 Microbiology STAT 11/15/2018 4:37 PM EDT [place] End: 11-05-2018 EKG 12 Lead EKG 12 Lead ECG Routine One Time for 1 Occurrences starting 11/05/2018 until 11/05/2018 [place] Comment on above: One Time for 1 Occur rences starting 11/05/2018 until 11/05/2018 Incentive spirometry Incentive s pirometry Respiratory Care Routine Every 2hr while awake until discontinued starting 11/15/2018 [place] Comment on above: Every 2hr while awak e until discontinued starting 11/15/2018 Initiate Oxygen Ther apy Protocol Initiate Oxygen Therapy Protocol Respiratory Care Routine Daily until discontinued starting 11/15/2018 [place] Comment on above: Daily until disconti nued starting 11/15/2018 Nonrebreather mask oxygen Nonrebreather mask oxygen Respiratory Care Routine As directed - RT (PRN) until discontinued starting 11/05/2018 [facility] [place] Comment on above: As directed - RT (NC N) until discontinued starting 11/05/2018 Patient Education [facility] Work Phone: Patient referral [facility] Work Phone: End: 11-15-2018 Speech and language therapy regime 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 One Time for 1 Occurrences starting 11/15/2018 until 11/15/2018 [facility] [place] Comment on above: One Time for 1 Occur rences starting 11/15/2018 until 11/15/2018 End: 11-04-2018 Urine Reflex to Culture Urine Reflex to Culture Lab STAT One Time for 1 Occurrences starting 11/04/2018 until 11/04/2018 [facility] [place] Comment on above: One Time for 1 Occur rences starting 11/04/2018 until 11/04/2018 XR Cervical spine 2 Views [facility] XR Cervical spine Vi ews W flexion and W extension [facility] Immunizations Immunization Date Immunization Notes Care Provider Yuri romero 12-20-2021 influenza virus vaccine, unspecified formulation MIKAYLA ABDULLAHI [facility] 11-30-2021 influenza virus vaccine, unspecified formulation MD Mami Daniels Work Phone: [facility] 12-21-2020 influenza virus vaccine, unspecified formulation MIKAYLA ABDULLAHI [facility] 01-09-2019 influenza virus vaccine, unspecified formulation MIKAYLA ABDULLAHI [facility] 11-29-2017 influenza virus vaccine, unspecified formulation MIKAYLA ABDULLAHI [facility] 01-02-2017 influenza virus vaccine, unspecified formulation MIKAYLA ABDULLAHI [facility] 12-06-2016 influenza virus vaccine, unspecified formulation MIKAYLA WEISS [facility] 12-11-2014 influenza virus vaccine, unspecified formulation MIKAYLA WEISS [facility] NEGATED: Highlighted row has not occurred!05-03-2023 influenza virus vaccine, unspecified formulation Turner DOSS [facility] Payers Date Payer Category Payer Self-pay [id number] 2021 Unknown [id number] 2021 Other GENERIC OTHER Ms mber [id number] 2018 Medicare MEDICARE MEDICAR E PART A AND B xxxxxxxxxxx 2018-Present [phone] [place] [address] xxxxxxxxxxx [id number] 2014 Medicare [id number] 2014 Medicare MEDICARE MEDICAR E PART A AND B xxxxxxxxxx 2014-Present [phone] [place] [address] xxxxxxxxxx [id number] .[id number] 2014 Unknown [id number] 2014 Unknown 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 [address] xxxxxxxxxxxx 2014-Present [phone] [address] [place] [address] xxxxxxxxxxxx [id number] .[id number] 2001 Medicare MEDICARE [id number] 1959 Medicare [id number] 1959 Self-pay [id number] 1959 Unknown [id number] 1936 Unknown [id number] 2.16840.1.930123.3.579.2.647 1936 Unknown [id number] 2.840.1.942516.3.579.2.182 1936 Unknown [id number] 2.16840.1.839859.3.579.2.182 1936 Unknown [id number] 2.16840.1.469283.3.579.2.182 1936 Unknown [id number] 2.16840.1.768487.3.579.2.182 1936 Unknown [id number] 2.16840.1.358947.3.579.2.593 1936 Unknown [id number] 2.16840.1.757466.3.579.2.593 1936 Unknown [id number] 2.16.840.1.993440.3.579.2.593 1936 Unknown [id number] 2.16.840.1.450412.3.579.2.593 1936 Unknown [id number] 2.16.840.1.202728.3.579.2.593 1936 Unknown [id number] 2.16.840.1.663438.3.579.2.593 1936 Unknown [id number] 2.16.840.1.087050.3.579.2.593 1936 Unknown [id number] 2.16.840.1.631529.3.579.2.593 1936 Unknown [id number] 2.16.840.1.679633.3.579.2.593 1936 Unknown [id number] 2.16.840.1.489360.3.579.2.593 1936 Unknown [id number] 2.16.840.1.979629.3.579.2.727 1936 Unknown [id number] 2.16.840.1.749190.3.579.2.727 1936 Unknown [id number] 2.16.840.1.775392.3.579.2.727 1936 Unknown [id number] 2.16.840.1.992470.3.579.2.727 1936 Unknown [id number] 2.16.840.1.889635.3.579.2.727 1936 Unknown [id number] 2.16.840.1.334081.3.579.2.125 9 1936 Unknown 2020 2.16.840.1.624846.3.579.2.125 9 Unknown Unknown [id number] 2.16.840.1.610283.3.579.2.531 Unknown [id number] 2.16840.1.023763.3.579.2.531 Unknown [id number] 2.16.840.1.576318.3.579.2.531 Unknown [id number] 2.16.840.1.704046.3.579.2.531 Unknown [id number] 2.16840.1.593366.3.579.2.531 Unknown [id number] 2.840.1.111044.3.579.2.531 Social History Date Type Detail Facility Start: 11-04-2018 End: 01-23-2024 Tobacco smoking status NHIS Never smoker [facility] Start: 11-04-2018 End: 07-24-2024 Alcohol intake Not Currently [facility] Start: 1935 Sex Assigned At Not on file M [place], [place] Tobacco smoking status No Smoking Status Entered [facility] Start: 1935 Sex Assigned At Female [facility] Tobacco smoking status Never [facility] Start: 03-02-2024 End: 05-08-2024 Sex Female (finding) [facility] Tobacco smoking status PAIS Tobacco smoking consumption unknown [facility] Start: 07-24-2024 Tobacco use and exposure Smokeless tobacco non-user [facility] Start: 07-24-2024 History of Social function [facility] Medical Equipment Procedure Code Equipment Code Equipment Origin al Text Equipment Identifier Dates Graft Canc Chip 30cc [id number] - [id number] Start: 11-13-2018 Graft Canc Chip [id number] 15cc - [id number] Start: 11-13-2018 Sys Fix Reline 0 x Conn 40 50mm 5.5lp Adj [id number] Start: 11-13-2018 Jose Armando-Graft Infuse Kt Med [id number] Start: 11-13-2018 Impl Spine Cage Kamila Crv [id number] 8deg [id number] Start: 11-13-2018 Impl Spine Cage Kamila Crv [id number] 8deg [id number] Start: 11-13-2018 Screw Polyaxial Reline O 2s 6.0x55mm [id number] Start: 11-13-2018 Screw Lk Reline Opn Tulip 5.5mm [id number] Start: 11-13-2018 Impl Spine Harish Reline-O Lrdtc 5.5x70mm [id number] Start: 11-13-2018 Impl Spine Harish Reline-O 5.5x75mm [id number] Start: 11-13-2018 Goals Date Patient Goal Desired Activity /State Functional Status Date Assessment Result Facility 05-03-2023 Functional Status N/A [facility] 04-06-2023 Functional status Patient at Baseline [facility] Work Phone: 12-22-2022 Functional Status N/A [facility] Mental Status Date Assessment Result Facility 04-06-2023 Cognitive function Cognitive Sta tus Patient at Baseline [facility] Work Phone: Clinical Notes 04-04-2022 to 08-07-2024 Yosi Atkins DPM FACFAS - 08/07/2024 1:20 PM EDTMshobha Atkins DPM FACFAS - 07/24/2024 1:20 PM EDT Note Date [...] with subungual debris and painful to palpation 40314 on the right 56113 on the left VASC: Palpable pedal pulsed [...] in length and thickness 1 through 10 JULES Dupree documented in this encounter [facility] 07-24-2024 History of Present illness Narrative Images [...] Problems Past Medical History: Diagnosis Date Hypertension ([facility]) Medications: Current Outpatient Medications: amLODIPine [...] < 3 seconds Digits 1-5 bilateral NEURO: Monette Zechariah 5.07 monofilament was intact B/L. Vibratory [...] daily. JULES Dupree documented in this encounter [facility] 04-30-2024 Radiology Diagnostic study note [facility] [place] [address] CT Scan Report Signed Patient: Hiram Madrid MR#: [id number] : 1935 Acct:[id number] Age/Sex: 88 / F ADM Date: 5 Loc: CT Room: Type: [facility] CLI Attending Dr: Lg Fu DO Copies to: Lg Fu DO~ Ordering Provider: Lg Fu DO Date of Service: 04/30/24 CT/CT cervical spine wo con: S12.9XXA - Fracture of neck, unspecified, initial encounter ([id number]) XR/XR cerv spine AP/LAT/FLX/EXT: S12.9XXA - Fracture [...] Chris Munguia M.D.04/30/2024 3:03 PM Dictation Location: [place] [address] Transcribed By: [facility] 04/30/24 1503 Dictated By: Chris Munguia MD 04/30/24 1454 Signed By: 04/30/24 1503 [facility] Work Phone: 03-06-2024 Evaluation note Diagnosis Onset Date Resolution Cervical spine fracture acute March 06 11:19am Cervical spine fracture acute April 17, 1:02pm [facility] Work Phone: 1(884) 891-134801-15-2025 Evaluation note* Diagnosis Onset Date Resolution Status Admit Date Cervical spine fracture acute J anuary 2024 11:19am Cervical spine fracture acute F ebruary 2024 1:02pm Cervical spine fracture acute M arch 2024 3:15pm [facility] Work Phone: 1(498) 136-717812-04-2024 Evaluation note* Diagnosis Onset Date Resolution Status Admit Date SHAN (acute kidney injury) inactive January 24, 2024 10:11am C5 vertebral fracture inactive Jan 10:11am Fall as cause of accidental injury at home as place of occurrence inactive January 23 10:11am Hypertensive urgency inactive Dece 2023 10:11am Leukocytosis inactive January 10:11am [facility] Work Phone: 1(271) 232-702012-04-2024 Evaluation note* Diagnosis Onset Date Resolution Status Admit Date SHAN (acute kidney injury) inactive January 24, 2024 10:11am C5 vertebral fracture inactive Jan 10:11am Fall as cause of accidental injury at home as place of occurrence inactive January 23 10:11am Hypertensive urgency inactive Dece mb2023 10:11am Leukocytosis inactive January 10:11am Cervical spine fracture acute J anuary 2024 11:19am [facility] Work Phone: 1([phone]) 311-916403-13-2024 NoteChief Complaint consultation for skin lesion HPI Staff 87 year old female presents on consultation from Dr. Hoy for left facial lesion. Reports flesh colored [...] plan excisional biopsy under local anesthesia at [facility], for definitive diagnosis and treatment, informed [...] mg= 1 tab(s), Oral, Daily Potassium Chloride (Lcf-Fzui-Fnp 10), 20 mEq, Oral, TID pravastatin 80 [...] 12/06/2016 Recorded influenza virus vaccine, inactivated 12/11/2014 [facility]edK[facility] [place]Comment on above:Result Comment: Electronically Signed By: ROMARIO DUMONT, Turner Connor\Date and Time Signed: 05/03/23 20:14 [id number] Discharge summary Author Turner Frank [facility] April 06, 2023 12:22pm Note Date/Time April 06, 2023 12:22pm [facility] [address] [place] [address] Discharge Summary Signed Patient: Hiram Madrid MR#: [id number] : 1935 Acct:[id number] Age/Sex: 87 / F Adm Date: 4 Loc: 4 Room: 0A1570-[address]: Turner Frank DO Copies to: [...] is a 89-year-old who presented here to [facility] as a transfer on 04/02/2023. She [...] Plan Discharge Plan Patient Disposition: Home Health [facility] Activity: Ambulate as Tolerated Diet: Low-Sodium Additional [...] <Electronically signed by Turner Frank DO> 04/06/23 122 [facility] Work Phone: 1(119) 849-726602-14-2024 Progress note Author Turner Frank [facility] April 05, 2023 8:14pm Note Date/Time April 05, 2023 8:14pm [facility] [address] [place] [address] Hospitalist Progress Note Signed Patient: Hiram Madrid MR#: [id number] : 1935 Acct:[id number] Age/Sex: 87 / F Adm Date: 4 Loc: 4P Room: [address] [place] [address] Type: ADM IN Attending Dr: Turner Frank [...] Meq Kcl IV 04/01/24 20:29 0 mls/hr .[id number] [place] Infusion Levothyroxine Sodium 88 mcg 04/03/23 [...] <Electronically signed by Turner Frank DO> 04/05/232013 [facility] Work Phone: 1(628) 262-524302-14-2024 Progress note Author Gaudencio Romero [facility] April 05, 2023 11:16am Note Date/Time April 05, 2023 11:16am [facility] [address] [place] [address] Nephrology Progress Note Signed Patient: Hiram Madrid MR#: [id number] : 1935 Acct:[id number] Age/Sex: 87 / F Adm Date: 4 Loc: Room: 6L4647-1 Type: ADM IN Attending Dr: Turner Frank DO Copies to: ~ Date of Service: 04/05/2023 Subjective Subjective Narrative: Ms. Madrid is an 87-year-old white female was transferred from [facility] on 04/02/23 for hyponatremia. Patient did complain for nausea with no vomiting or diarrhea. She had back pain and other vague symptoms that prompted her to go [facility]. ER lab showed sodium 116, potassium 2.3 and magnesium 1.6. Otherlabs unremarkable including creatinine 0.7 mg/dL. EKG showed normal sinus rhythm at 86/min with right bundle branch block. Patient was given 2 g magnesium in the emergency room and subsequently was transferred to [facility] for further management. On arrival, patient was placed on gentle hydration with normal saline with 20 mEq potassium chloride at rate of75 cc/h. Review of his records showed that the patient has a chronic hyponatremia for almost a year however she never seen copy center specialist. Sodium has been running in the 120s. [...] stated [facility] [...] Balance 100 / 100 5 / 2024 1124 / 1124 120 / 120 Weight 63 kg 61.3 kg 62.5 kg 58.2 kg Meds and Allergies Meds: Active Medications Acetaminophen (Acetaminophen 325 Mg Tablet) 650 mg PO Q4H PRN PRN Reason: Pain Scale 1 - 5 Stop: 04/01/24 19:57 Amlodipine Besylate (Amlodipine 10 Mg Tablet) 10 mg PO DAILY [facility] Stop: 04/02/24 08:59 Last Admin: 04/05/23 08:25 Dose: 10 mg Docusate Sodium (Docusate 100 Mg Capsule) 200 mg PO BID PRN PRN Reason: Constipation Stop: 04/01/24 19:57 Docusate Sodium (Docusate 100 Mg Capsule) 200 mg PO BID [facility] Stop: 04/02/24 08:59 Last Admin: 04/05/23 08:25 Dose: 200 mg Hydralazine HCl (Hydralazine 20 Mg/Ml Vial) 10 mg IV-PUSH Q4H PRN PRN Reason: if SBP > 185 Stop: 04/01/24 19:57 Potassium Chloride/Sodium Chloride (0.9 % Nacl-20 Meq Kcl) 1,000 mls @ 75 mls/hr IV .[id number] [place] Stop: 04/01/24 20:29 Last Infusion: 04/04/23 [...] 40 Mg Tablet.Dr) 40 mg PO DAILY.0630 [facility] Stop: 04/04/24 08:59 Last Admin: 04/05/23 08:25 Dose: 40 mg Pravastatin Sodium (Pravastatin 40 Mg Tablet) 80 mg PO DAILY [facility] Stop: 04/02/24 08:59 Last Admin: 04/05/23 [...] <Electronically signed by MD Gaudencio Romero> 04/05/23 1110 [facility] Work Phone: 1([phone]) 619-981302-13-2024 Progress note Author Gaudencio Romero [facility] April 04, 2023 2:06pm Note Date/Time April 04, 2023 2:00pm [facility] [address] [place] [address] Nephrology Progress Note Signed Patient: Hiram Madrid MR#: [id number] : 1935 Acct:[id number] Age/Sex: 87 / F Adm Date: 4 Loc: 4 Room: 3E6611-2 Type: ADM IN Attending Dr: Turner Frank DO Copies to: ~ Date of Service: 04/04/2023 Subjective Subjective Narrative: Ms. Madrid is an 87-year-old white female was transferred from [facility] on 04/02/23 for hyponatremia. Patient did complain for nausea with no vomiting or diarrhea. She had back pain and other vague symptoms that prompted her to go [facility]. ER lab showed sodium 116, potassium 2.3 and magnesium 1.6. Otherlabs unremarkable including creatinine 0.7 mg/dL. EKG showed normal sinus rhythm at 86/min with right bundle branch block. Patient was given 2 g magnesium in the emergency room and subsequently was transferred to [facility] for further management. On arrival, patient was placed on gentle hydration with normal saline with 20 mEq potassium chloride at rate of75 cc/h. Review of his records showed that the patient has a chronic hyponatremia for almost a year however she never seen copy center specialist. Sodium has been running in the 120s. [...] 10 Mg Tablet) 10 mg PO DAILY [facility] Stop: 04/02/24 08:59 Last Admin: 04/04/23 10:06 Dose: 10 mg Docusate Sodium (Docusate 100 Mg Capsule) 200 mg PO BID PRN PRN Reason: Constipation Stop: 04/01/24 19:57 Docusate Sodium (Docusate 100 Mg Capsule) 200 mg PO BID [facility] Stop: 04/02/24 08:59 Last Admin: 04/04/23 10:06 Dose: Not Given Hydralazine HCl (Hydralazine 20 Mg/Ml Vial) 10 mg IV-PUSH Q4H PRN PRN Reason: if SBP > 185 Stop: 04/01/24 19:57 Potassium Chloride/Sodium Chloride (0.9 % Nacl-20 Meq Kcl) 1,000 mls @ 75 mls/hr IV .[id number] [facility] Stop: 04/01/24 20:29 Last Infusion: 04/04/23 08:45 Dose: 0 mls/hr Levothyroxine Sodium (Levothyroxine 88 Mcg Tablet) 88 mcg PO DAILY@0630 [facility] Stop: 04/02/24 06:29 Last Admin: 04/04/23 06:26 Dose: 88 mcg Lorazepam (Lorazepam 2 Mg/Ml Vial) 0.25 mg IV-PUSH Q4H PRN PRN Reason: Anxiety Stop: 10/01/23 11:38 Losartan Potassium (Losartan 50 Mg Tablet) 100 mg PO DAILY [facility] Stop: 04/02/24 08:59 Last Admin: 04/04/23 10:06 Dose: 100 mg Pantoprazole Sodium (Pantoprazole 40 Mg Tablet.Dr) 40 mg PO DAILY.0630 [facility] Stop: 02/13/25 08:59 Pravastatin Sodium (Pravastatin 40 Mg Tablet) [...] outpatient Documented By: Gaudencio Romero MD 04/04/23 1356 Signed By: <Electronically signed by MD Gaudencio Romero> 04/04/23 1400 [facility] Work Phone: 1(764) 265-523802-13-2024 Progress note Author Turner Frank [facility] April 04, 2023 1:09pm Note Date/Time April 04, 2023 1:09pm [facility] [address] [place] [address] Hospitalist Progress Note Signed Patient: Hiram Madrid MR#: [id number] : 1935 Acct:[id number] Age/Sex: 87 / F Adm Date: 4 Loc: Room: [address] [place] [address] Type: ADM IN Attending Dr: Turner Frank [...] Meq Kcl IV 04/01/24 20:29 0 mls/hr .[id number] [place] Infusion Levothyroxine Sodium 88 mcg 04/03/23 [...] <Electronically signed by Turner Frank DO> 04/04/23 1207 [facility] Work Phone: 1(294) 473-421602-12-2024 Progress note Author Turner Frank [facility] April 03, 2023 7:29pm Note Date/Time April 03, 2023 7:29pm [facility] [address] [place] [address] Hospitalist Progress Note Signed Patient: Hiram Madrid MR#: [id number] : 1935 Acct:[id number] Age/Sex: 87 / F Adm Date: 4 Loc: 4 Room: [address] [place] [address] Type: ADM IN Attending Dr: Turner Frank [...] Meq Kcl IV 04/01/24 20:29 75 mls/hr .[id number] [place] Administration Levothyroxine Sodium 88 mcg 04/03/23 06:30 [...] <Electronically signed by Turner Frank DO> 04/03/231928 [facility] Work Phone: 1(376) 984-554402-12-2024 Consult note Author Gaudencio Romero [facility] April 03, 2023 2:07pm Note Date/Time April 03, 2023 2:07pm [facility] [address] [place] [address] Nephrology Consult Note Signed Patient: Hiram Madrid MR#: [id number] : 1935 Acct:[id number] Age/Sex: 87 / F Adm Date: 4 Loc: Room: [address] [place] [address] Type: ADM IN Attending Dr: Turner Frank DO Copies to: MD Gaudencio Pickering MD Michael R. Frings, DO~ Providers Consult Date: 04/03/23 Requesting Provider: Turner Frank DO Primary Care Provider: Mami Daniels MD [facility] Reason for Consult: Hyponatremia, sodium 117 on admission History of Present Illness: Ms. Madrid is an 87-year-old white female was transferred from [facility] on 04/02/23 for hyponatremia. Patient did complain for nausea with no vomiting or diarrhea. She had back pain and other vague symptoms that prompted her to go [facility]. ER lab showed sodium 116, potassium 2.3 and magnesium 1.6. Otherlabs unremarkable including creatinine 0.7 mg/dL. EKG showed normal sinus rhythm at 86/min with right bundle branch block. Patient was given 2 g magnesium in the emergency room and subsequently was transferred to [facility] for further management. On arrival, patient was placed on gentle hydration with normal saline with 20 mEq potassium chloride at rate of75 cc/h. Review of his records showed that the patient has a chronic hyponatremia for almost a year however she never seen copy center specialist. Sodium has been running in the 120s. [...] has no ascites or edema. Lab at [facility] showed TSH 5.6, urine osmolality 298 and urine sodium 79 mmol/L Review of her medications showed that the patient was on amlodipine, losartan, potassium supplement and hydrochlorothiazide 25 mg daily. She also takes magnesium oxide 400 mg twice a day. No SSRI. Review of Systems Review of Systems All other systems reviewed & are negative unless noted below or in HPI [facility] Medical History (Updated 04/03/23 @ 14:00 [...] Surgical History (Updated 02/01/23 @ 14:30 by Snaptee) History of tonsillectomy Problem List clean-up per [...] BID [place] Stop: 04/02/24 08:59 Last Admin: 04/03/23 08:58 Dose: Not Given Hydralazine HCl (Hydralazine 20 Mg/Ml Vial) 10 mg IV-PUSH Q4H PRN PRN Reason: if SBP > 185 Stop: 04/01/24 19:57 Potassium Chloride/Sodium Chloride (0.9 % Nacl-20 Meq Kcl) 1,000 mls @ 75 mls/hr IV .[id number] [facility] Stop: 04/01/24 20:29 Last Admin: 04/02/23 21:56 Dose: 75 mls/hr Levothyroxine Sodium (Levothyroxine 88 Mcg Tablet) 88 mcg PO DAILY@0630 [facility] Stop: 04/02/24 06:29 Last Admin: 04/03/23 05:54 Dose: 88 mcg Losartan Potassium (Losartan 50 Mg Tablet) 100 mg PO DAILY [facility] Stop: 04/02/24 08:59 Last Admin: 04/03/23 08:58 Dose: 100 mg Pravastatin Sodium (Pravastatin 40 Mg Tablet) 80 mg PO DAILY [facility] Stop: 04/02/24 08:59 Last Admin: 04/03/23 [...] 01:50 04:48 MCHC 35.8 H (32.0-35.0) g/dL [place] # (Auto) 1.1 H (0.0-0.8) x10E3/uL Sodium [...] 04/03/23 Range/Units 08:00 10:38 MCHC (32.0-35.0) g/dL [place] # (Auto) (0.0-0.8) x10E3/uL Sodium 118 L* [...] stay Documented By: Gaudencio Romero MD 04/03/23 5367 Signed By: <Electronically signed by MD Gaudencio Romero> 04/03/23 140 [facility] Work Phone: 1(317) 797-604202-11-2024 History and physical note Author Natividad Gregory [facility] April 02, 2023 8:22pm Note Date/Time April 02, 2023 8:06pm [facility] [address] [place] [address] Hospitalist H&P Signed Patient: Hiram Madrid MR#: [id number] : 1935 Acct:[id number] Age/Sex: 87 / F Adm Date: 4 Loc: 4P Room: [address] [place] [address] Type: ADM IN Attending Dr: Lucy Lockhart MD Copies to: MD Lucy Pickering MD Ruta Semaskiene, MD~ HPI DATE OF EXAMINATION: 04/02/23 CHIEF COMPLAINT: Hyponatremia HISTORY OF PRESENT ILLNESS: 87 years old female was transferred from [facility] for hyponatremia. Itseems like the [...] days ago she has been admitted to [facility] and discharged. Since then she [...] Previous records in the computer system reviewed [facility] Medical History (Updated 04/02/23 @ 20:21 [...] List clean-up per request of Phys. EHR [facility] Surgical History (Updated 02/01/23 @ 14:30 by Loud3r Me) History of tonsillectomy Problem List clean-up per request of Phys. EHR [facility] History of salpingo-oophorectomy Problem List clean-up per request of Phys. EHR Cmte Hx of cholecystectomy Problem List clean-up per request of Phys. EHR [facility] History of appendectomy Problem List clean-up per request of Phys. EHR [facility] Family History (Updated 07/29/14 @ 12:15 by [...] <Electronically signed by Natividad Gregory MD> 04/02/232021 [facility] Work Phone: 1(896) 793-423911-22-2023 NoteNoted 7 beat run of NSVT on 1 week holter monitor, along with SVT, PVCs Recommended to continue coreg 25 mg bid, will place 30 day monitor, and obtain treadmill cardiolite stress test for ischemic evaluation.[facility]11-22-2023 NotePt reports that she has had 5 syncopal episodes since this Summer- some while having a BM, and other episodes while just up and walking.[facility]11-22-2023 NoteWill monitor with routine echocardiogram annually unless pt has concerning symptomsUnAvita Health System11-22-2023 NoteRecommended to continue ASA and pravastatinUnAvita Health System11-22-2023 Note Hypertension is stable Reviewed B/P log and typically in the mornings her b/p with well controlled 120's/70-80, and in the evenings can be up to 140/80 Continue all meds and will add toprolUnAvita Health System 01-11-2023 NoteContinue pravastatinUnAvita Health System11-22-2023 NoteWill monitor with routine echocardiogram annually unless pt has concerning symptomsUnAvita Health System11-22-2023 NoteWill monitor with routine echocardiogram annually unless pt has concerning symptomsUnAvita Health System11-22-2023 NotePatient here for 3 mo follow up valve disorder and carotid artery stenosis. She has had a few episodes of syncope since last visit. She recently wore Holter monitor. Says Dr. Daniels wants to add metoprolol but she does not want to add another medication. Review of Systems Cardiovascular: Positive for syncope. Hematologic/Lymphatic: Bruises/bleeds easily. All other systems reviewed and are negative.[facility] 01-11-2023 NoteUTP CARDIOLOGY PROGRESS NOTE HPI: [...] called and was evaluated in ED at [facility]. Admits she has had a couple syncopal episodes in the bathroom while having a BM- last one was at [facility]. States she also has had a couple while just up and walking- normal Day to Day activity. Daughter states that pt is usually out for about 1 minute. Of note patient was direct admitted to the [facility] end of August for electrolyte imbalances low sodium, low potassium, and acute anemia. She was evaluated at [facility] in October for ABD pain/ syncope, [...] The patient states she was shopping in [facility] when she felt the need to [...] a colonoscopy approximately 5 years ago at [facility]. HPI - Altered Mental Status General Chief [...] was someone in the bathroom in the adventist and she have to go back and [...] tablet 3 levothyroxine (Syn (more content not included)...[facility]11-02-2023 Hospital Discharge instructions Patient Education 12/22/2022 [...] transplant. Follow these instructions at home: Take [id number] and prescription medicines only as told by [...] provider. Document Revised: 05/26/2020 Document Reviewed: 05/26/2020 [employer] Patient Education 2022 [employer]. Follow Up Care 09/06/2022 13:10:43 With:MIKAYLA WEISS PA-C, URL Address: [address] [place] [address] [phone] When: Unknown Comments:6 mos w/ renal fxn (per PCP) [facility] Natalya 09-05-2023 NotePt message/ call that she [...] appointment Lesly Alaniz NP Division of Cardiology, [facility]- [phone] Pager- [phone] Email- [email or web address] Health System08-25-2023 NoteStable and non pitting currentlyUnAvita Health System 10-14-2022 NoteCurrently stable Pt to call for any recurrent syncope or concernsUnAvita Health System08-25-2023 NoteMild on recent echo No concerning symptomsUnAvita Health System08-25-2023 NoteContinue ASA and statinUnAvita Health System08-25-2023 NoteHypertension is uncontrolled 160/75- admits this is where her b/p is at home Increase coreg to 25 mg bid, continue losartan 100 mg, hydrochlorothiazide 25 mg, and amlodipine 10 mgUnAvita Health System08-25-2023 Note Continue pravastatinUnAvita Health System08-25-2023 NoteNo concerning symptoms Will continue to monitor with echocardiogramUnAvita Health System 10-14-2022 NoteNo concerning symptoms Will continue to monitor with echocardiogramUnAvita Health System 10-14-2022 NotePatient here c/o LE edema. Says today they aren't as bad, but she states they're hard and sometimes painful. She has not had lab work since [facility] stay in July 2022. She denies chest pain, lightheadedness, and palpitations. Review of Systems Cardiovascular: Positive for dyspnea on exertion and leg swelling. Hematologic/Lymphatic: Bruises/bleeds easily. All other systems reviewed and are negative.[facility] 10-14-2022 NoteUTP CARDIOLOGY PROGRESS NOTE HPI: [...] note patient was direct admitted to the [facility] end of August for electrolyte [...] Stable and non pitting currently RTC 3-6 months[facility]02-13-[facility] Note Chief [...] p.o. twice dominic (more content not included)... [facility] CenterEvaluation + Plan note No data available for this section [facility] Future Appointments Appointment Date:06/29/2023 09:30:00 AM Scheduled Provider:MIKAYLA WEISS PA-C Location:Critical access hospital Appointment Type:URO Office Visit [facility] Evaluation noteNo assessment information available [facility] Work Phone: Evaluation note* Diagnosis Onset Date Resolution Status HTN (hypertension) acute Hyponatremia acute [facility] Work Phone: Evaluation note* Diagnosis Onychocryptosis- Primary Ingrowing nail Abscess, toe, left Pain in left toe(s) documented in this encounter [facility] HealthcareEvaluation note* Diagnosis Abscess, toe, left- Primary Onychocryptosis Ingrowing nail Pain in left toe(s) Onychomycosis Dermatophytosis of nail Pain in right toe(s) documented in this encounter [facility] HealthcareHospital Discharge instructions No data available for this section [facility] CenterH[facility] Dis[facility] instructions Additional Instructions Take [...] or chills or intractable nausea vomiting.[facility] Work Phone: Progress note No data available for this section [facility] CenterReason for referral (narrative)No reason for referral information availableK[facility]tering [facility] Work Phone: Summary Purpose Family History No Family History Records Found Relationship Condition Age at Onset Recorded Date/T cullen father Unknown Not Specified Unknown Relationship Condition Age at Onset Recorded Date/T cullen father Unknown mother Unknown Advance Directives No Advanced Directives Records FoundDocuments on File Type Date Recorded Patient Certified Histologic Technician Expl anation Advance Directives and Living Will Power of Machine Leather Trimmer Latest Code Status on File Code Status Date Activated Date Inactivated Comments Full Code 11/05/2018 6:34 PM Full Code 11/04/2018 5:08 PM 11/05/2018 6:34 PM Documents on File Type Date Recorded Patient Certified Histologic Technician Expl anation Advance Directives and Livin g Will Advance Directives and Livin g Will 11/06/2018 1:08 AM AD info sheets Power of Machine Leather Trimmer Latest Code Status on File Code Status [...] Discharge Instructions * Discharge Instr - Activity* Smomer Dinh RN - 11/05/2018 7:06 PM EDT Up as tolerated safely * Attachments The following attachments cannot be sent through Care Everywhere. * Back Pain (Guamanian) documented in this encounter* Discharge Instr - [...] at most local grocery stores, pharmacies, and [employer]-stores. ? If you have any questions about [...] Contact Information Primary Emergency Contact: Andrea Madrid [facility] Mobile Relation: Spouse Secondary Emergency Contact: Liliya Townsend Mobile Relation: Child Miner needed? No Past Surgical History: Past Surgical History: Procedure Laterality Date APPENDECTOMY BACK SURGERY CHOLECYSTECTOMY LUMBAR FUSION N/A 11/13/2018 PLIF L 3-4-5 DECOMPRESSION L3, L4 performed by Lenny Corral MD at [facility] Right Immunization History: There is no immunization [...] Assisted Dressing Independent Toileting Independent Feeding Independent Dock Or Pier Laborer Independent Med Delivery whole Wound Care Documentation [...] select all that are sent with patient): {[place] [facility] Belongings:[id number]} RN SIGNATURE: MANAGEMENT/SOCIAL WORK SECTION Inpatient Status Date: Patient was admitted to Inpatient Acute Rehab 11/15/18 Readmission Risk Assessment Score: Readmission Risk Risk of Unplanned Readmission: 12 Discharging to Facility/ Agency Name: Karan Sosa Address: Fax: Dialysis Facility (if applicable) Name: Address: Dialysis Schedule: Phone: Fax: [place] [facility] Fe[facility] signature: ICIAN SECTION Prognosis: Good Condition at [...] Date: 11/20/2018 Patient Name: Hiram Madrid Account: [id number] : 1935 (83 y.o.) Room: [place] [address] Diagnosis: Impaired mobility and gait secondary to [...] by Lenny Corral MD at [facility] OR [facility] AND [facility] Right Precautions: Restrictions/Precautions: Fall Risk [...] to increasing pain) Transfer Assistance: [employer] Tutor: Yes Mode of Transportation: Car 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 Leisure & Hobbies: Cooking, reading, needlepoint Additional Comments: 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, has been relying more on dtr and spouse due toworsening weakness past few weeks Current Functional Status: ADL Equipment Provided: Sock aid, Community Music Therapist Feeding: Modified independent Grooming: Independent UE Bathing: [...] Limits Cognition Status: Cognition Overall Cognitive Status: [facility] Cognition Comment: 6 7 7 6 6 Perception Status: Perception Overall Perceptual Status: [facility] Sensation Status: Sensation Overall Sensation Status: [facility] Vision and Hearing Status: Vision Vision: Impaired Vision Exceptions: Wears glasses for reading Hearing Hearing: Exceptions to [facility] Hearing Exceptions: Hard of hearing/hearing concerns, [...] Yarely Gordon - 11/20/2018 12:[address] [facility] MUSIC THERAPY Date: 11/20/2018 Patient Name: Hiram [...] interested in having music therapy again. [] [facility] will attempt to see pt again another day, if time allows. [x] Pt's planned d/c date is before [facility] is scheduled on unit again. [] Pt NOT interested in having music therapy again. BANG Ramos 11/20/2018 * Roselyn Schroeder OTA - 11/20/2018 9:59 AM EDT Occupational Therapy Facility/Department: [facility] Daily Treatment [...] history that includes back surgery; Cholecystectomy; Appendectomy; munir and bso (cervix removed) (Right); and lumbar [...] AM EDT Occupational Therapy Facility/Department: [facility] Daily Treatment [...] history that includes back surgery; Cholecystectomy; Appendectomy; munir and bso (cervix removed) (Right); and lumbar [...] Shower Transfers: Supervision Cognition Overall Cognitive Status: [facility] Cognition Comment: 6 7 7 6 [...] device (slide rail) Walk: 6 - Modified Fallon Walks at least 150 feet with an ambulatory device, orthosis or prosthesis OR requires extra amount of time OR there is concern for safety Distance Walked: 200' Wheel Chair: 0 - Activity Not Assessed/Does Not Occur Stairs: 6 - Modified Fallon Safely goes up and down at least [...] from Dr. Ellis Holguin D.O., PM&R Attending [phone] [facility] Tasha * Khanh White LPN - 11/19/2018 [...] PLAN: Fever leukocytosis observe * Michelle Sharp, URIR/Lloyd - 11/19/2018 2:05 PM EDT Occupational Therapy Facility/Department: [facility] Daily Treatment [...] history that includes back surgery; Cholecystectomy; Appendectomy; munir and bso (cervix removed) (Right); and lumbar [...] Therapy Rehab Treatment Note Facility/Department: [facility] Room: [facility] [...] education: 0 Therapeutic ex: 20 Mikayla Lindsey SCREEN PRINTING PRESS OPERATOR, 11/19/18 at 2:52 PM * Dulce Stevens DO - 11/19/2018 11:20 AM EDT Progress Note Patient: Hiram Madrid Unit/Bed: R238/R238-01 Date of : 1935 Acct: [id number] Admitting Diagnosis: Impaired mobility [Z74.09] Spinal stenosis [...] and tentative discharge home tomorrow. Follows with client coordinator in [place]. 11/18/18: called by staff counsel regarding tachycardia. Pt was unaware of tachycardia. At 1336 yesterday lasting for 18 seconds there is what appears to berapid narrow complex tachycardia. She was being wheeled back from therapy at the time. It appears to be artifact. 9/27/19: doing better today. No CP or SOB. [...] to have + orthostatics. Denies hx of LA, CHF or arrhythmia. Follows with a client coordinator from [place] for carotid artery disease and cardiac murmur. [...] to DC home and F/U with regular client coordinator as outpatient Attending Supervising Physician's Attestation Statement The patient is a 83 y.o. female. I have performed a history and physical examination of the patient. I discussed the case with the physician data assistant. I reviewed the patient's Past Medical [...] meds 2. Stable from cardio standpoint. * Bishop De La RosaeighDERRICK - 11/19/2018 10:30 AM EDT Physical Therapy Rehab Treatment Note Facility/Department: [facility] Room: R238/R238-01 [...] Therapy Rehab Treatment Note Facility/Department: [facility] Room: [place] [address] NAME: Hiram Madrid : 1935 (83 y.o.) [...] Neuromuscular Education Neuromuscular Comments: Pizano Initiated: other SCREEN PRINTING PRESS OPERATOR finished it: pt scored a 42/56. Bed [...] education: 10 Therapeutic ex: 0 Mikayla Lindsey SCREEN PRINTING PRESS OPERATOR, 11/19/18 at 11:59 AM * Khanh White [...] Unit/Bed: R238/R238-01 Date of : 1935 Acct: [id number] Admitting Diagnosis: Impaired mobility [Z74.09] Spinal stenosis of lumbosacral region [M48.07] Admit Date: 11/15/2018 Hospital Day: 4 Current Medications: Scheduled Meds: cephALEXin 500 mg Oral 3 times per day kzqesueo-rbeaenxywp-weowyedfd Topical BID enoxaparin 30 mg Subcutaneous Daily [...] woman from homewith spouse who presents to [facility] with the above deficits which impact her [...] ms QTc Calculation (Bazett) 463 ms P Camden 58 degrees R Camden -11 degrees T Camden 5 degrees Xr Chest Standard (2 Vw) [...] Dr. Ellis Holguin D.O., PM&R Attending [address] [place] [address] * Rachael Graf LPN - 11/18/2018 4:39 [...] and no guarding. Musculoskeletal: Back: Urine Culture [[id number]] Collected: 11/15/18 1905 Order Status: Completed Specimen: Urine, clean catch Updated: 11/17/18 0728 Urine Culture, Routine No growth 24 hours Narrative: ORDERED BY: MAMI COKER SOURCE: Urine Clean Catch COLLECTED: 11/15/18 19:05 ANTIBIOTICS AT DI.: RECEIVED : 11/15/18 19:05 Culture Blood #2 [[id number]] Collected: 11/15/18 1637 Order Status: Completed Specimen: Blood Updated: 11/16/18 1815 Culture, Blood 2 No Growth to date. Any change in status will be called. Narrative: ORDERED BY: MAMI COKER SOURCE: Blood COLLECTED: 11/15/18 16:37 ANTIBIOTICS AT DI.: RECEIVED : 11/15/18 16:42 Culture Blood #1 [[id number]] Collected: 11/15/18 1637 Order Status: Completed Specimen: [...] Unit/Bed: R238/R238-01 Date of : 1935 Acct: [id number] Admitting Diagnosis: Impaired mobility [Z74.09] Spinal stenosis [...] by Lenny Corral MD at [facility] OR [facility] AND [facility] Right History reviewed. No pertinent family history. [...] on phone: None Gets together: None Attends pentecostalism service: None Active member of club or organization: None Attends meetings of clubs or organizations: None Relationship status: None Intimate partner violence: Fear of current or ex partner: None Emotionally abused: None Physically abused: None Forced sexual activity: None Other Topics Concern None Social History Narrative None Subjective/HPI: called by staff counsel regarding tachycardia. Pt was unaware of tachycardia. [...] and Mag levels. 2. HTN stable * RoTherese payan RN - 11/18/2018 5:16 AM EDT Patient [...] woman from homewith spouse who presents to [facility] with the above deficits which impact her [...] up labs. Blanca Holguin D.O., PM&R Attending [address] [place] [address] * Dana Craig, JANET - 11/17/2018 5:45 PM EDT Monitor room called, said pt had about 18 sec run of svt up to 218; notified cardio. * Faye Summers PTA - 11/17/2018 4:07 PM EDT Physical Therapy Rehab Treatment Note Facility/Department: [facility] Room: R238/R238-01 [...] previously scheduled minutes from AM. Faye Summers, SCREEN PRINTING PRESS OPERATOR, 11/17/18 at 4:07 PM * Rachael Graf [...] PM EDT Occupational Therapy Facility/Department: [facility] Daily Treatment [...] history that includes back surgery; Cholecystectomy; Appendectomy; munir and bso (cervix removed) (Right); and lumbar [...] Therapy Rehab Treatment Note Facility/Department: [facility] Room: [place] [address] NAME: Hiram Madrid : 1935 (83 y.o.) [...] Therapy Rehab Treatment Note Facility/Department: [facility] Room: [place] [address] NAME: Hiram Madrid : 1935 (83 y.o.) [...] meds this am Post Treatment Pain Screenin05/30 [facility] notified. OBJECTIVE: Transfers Sit to Stand: Stand [...] in place Therapy Time: Individual Time In 08 Time Out 0950 Minutes 55 Minutes:55 Transfer/Bed mobility training: Gait trainin Neuro re education:15 Therapeutic ex:20 Angi Shamar, 11/17/18 at 12:20 PM * Roselyn Schroeder OTA - 11/17/2018 8:43 AM EDT Occupational Therapy Facility/Department: [facility] Daily Treatment [...] history that includes back surgery; Cholecystectomy; Appendectomy; munir and bso (cervix removed) (Right); and lumbar [...] at below status. ADL Equipment Provided: Sock aid;Community Music Therapist Grooming: Independent UE Bathing: Setup LE Bathing: [...] woman from homewith spouse who presents to [facility] with the above deficits which impact her [...] consult,check dopplers Blanca Holguin D.O., PM&R Attending [address] [place] [address] Tasha * Jessica Irvin, OTR/L - 11/16/2018 4:14 PM EDT Occupational Therapy Facility/Department: [facility] Daily Treatment Note NAME: Hiram Madrid : 1935 Date of Service: 11/16/2018 Discharge Recommendations: Continue to assess pending progress OT Equipment Recommendations Other: Continue to assess Assessment Performance deficits / Impairments: Decreased functional mobility ;Decreased ADL status;Decreased strength;Decreased balance;Decreased endurance;Decreased high- level IADLs Assessment: Pt. is an 83 year old woman from home with spouse who presents to [facility] with the above deficits which impact her [...] history that includes back surgery; Cholecystectomy; Appendectomy; munir and bso (cervix removed) (Right); and lumbar [...] Unit/Bed: R238/R238-01 Date of : 1935 Acct: [id number] Admitting Diagnosis: Impaired mobility [Z74.09] Spinal stenosis of lumbosacral region [M48.07] Admit Date: 11/15/2018 Hospital Day: 1 Current Medications: Scheduled Meds: [START ON 11/17/2018] enoxaparin 40 mg Subcutaneous Daily jozdllux-fzrwnejzcm-syfglbojz Topical BID docusate sodium 100 mg Oral [...] to have + orthostatics. Denies hx of [place], CHF or arrhythmia. Follows with a client coordinator from [place] for carotid artery disease and cardiac murmur. [...] by Lenny Corral MD at [facility] OR MUNIR AND BSO Right Social History Social History [...] on phone: None Gets together: None Attends pentecostalism service: None Active member of club or [...] 100 mg 100 mg Oral TID Shyla Vizcaino APRN - INSTRUCTOR ADJUNCT PHARMACY TECHNICIAN [START ON 11/16/2018] levothyroxine (SYNTHROID) tablet 88 mcg 88 mcg Oral Daily Shyla Renato Vizcaino APRN- MK [START ON 11/16/2018] losartan (COZAAR) tablet 100 mg 100 mg Oral Daily Shyla Renato Vizcaino ARCHIVAL RECORDS CLERK - MK oxyCODONE-acetaminophen (PERCOCET) 5-325 MG per tablet 1 tablet 1 tablet Oral Q4H PRN Shyla Vizcaino APRN - MK potassium chloride (KLOR-CON) packet 20 mEq 20 mEq Oral BID Shyla Renato Vizcaino APRN - MK pravastatin (PRAVACHOL) tablet 80 mg 80 mg Oral Daily Shyla Gross EDY Vizcaino - INSTRUCTOR ADJUNCT PHARMACY TECHNICIAN polyethylene glycol (GLYCOLAX) packet 17 g 17 [...] tele 7. GI/DVT proph * Mikayla Lindsey SCREEN PRINTING PRESS OPERATOR - 11/16/2018 2:04 PM EDT Physical Therapy Rehab Treatment Note Facility/Department: [facility] Room: R238/R238-01 [...] education: 0 Therapeutic ex: 23 Mikayla Lindsey SCREEN PRINTING PRESS OPERATOR, 11/16/18 at 3:57 PM * Rhiannon Blank, BRAKE SHOE REBUILDER - 11/16/2018 11:21 AM EDT Speech Language Pathology NAME: Hirma Madrid ROOM: R238/R238-01 : 1935 DATE: 11/16/2018 [...] function at this time. * Jessica Irvin, OTR/Lloyd - 11/16/2018 10:58 AM EDT Occupational [...] from home with spouse who presents to [facility] with the above deficits which impact her [...] history that includes back surgery; Cholecystectomy; Appendectomy; munir and bso (cervix removed) (Right); and lumbar [...] to increasing pain) Transfer Assistance: [employer] Tutor: Yes Mode of Transportation: Car Type of [...] OTR/L Jessica Irvin OTR/Lloyd * Jena Vega, SCREEN PRINTING PRESS OPERATOR - 11/16/2018 10:35 AM EDT Physical Therapy Rehab Treatment Note Facility/Department: [facility] Room: [facility]/R238-01 NAME: Hiram Madrid : 1935 (83 y.o.) [...] Neuro re education:15 Therapeutic ex:15 Jena Vega, SCREEN PRINTING PRESS OPERATOR, 11/16/18 at 11:10 AM * Jessenia Gordon, METAL DRESSER - 11/16/2018 9:35 AM EDT [facility] RECREATIONAL THERAPY Initial Evaluation Date: 11/16/2018 [...] hearing in left ear) Patient seen at: [phone] Recreation Therapist received referral, chart reviewed and [...] her flower bed. Past leisure interests: Walking, adventist, had pets Future leisure interests: Emotional Observed/noted: Cooperative and Pleasant Affect: Appropriate Comments: Today s Session included: Increased Socialization, Provided active listening and Benefits of the patient's leisure and recreation pursuits being utilized as stress relievers Recommendations to utilize Recreation Therapy services, its supported services and groups include: [facility], Pet Therapy, Leisure Education, [...] signed by: MARIEL Stover Date: 11/16/2018 * Stevie Trevino, PT - 11/16/2018 8:20 AM EDT Facility/Department: [facility] Rehabilitation Initial Assessment: Physical Therapy Room: [place] [id number] NAME: Hiram Madrid : 1935 Date of [...] by Lenny Corral MD at [facility] OR [facility] AND [facility] Right Chart Reviewed: Yes Patient assessed for [...] to increasing pain) Transfer Assistance: [employer] Tutor: Yes Additional Comments: 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, [...] pt to be indep with bed mobility USP goal 2: pt to be indep with bed transfers USP goal 3: pt to [id number] ft with supervision superintendent container terminal goal 4: pt to navigate 4 steps with SBA USP goal 5: for Pizano balance testing ELOS: Plan weeks: 2 Therapy Time: Individual Time In 1000 Time Out 1030 Minutes 30 Stevie Trevino PT, 11/16/18 at 12:00 PM * Marybel Akcerman, MATERIAL REQUIREMENTS WORKER - 11/15/2018 11:29 PM EDT Tashia Stark [...] puffs by inhalation with spacer [] Ipratropium Stella 0.02% unit dose by aerosol Ipratropium Stella MDI 2 puffs by inhalation with spacer [] Duoneb (Ipratropium + Albuterol) unit dose by aerosol Ipratropium MDI + Albuterol MDI 2 puffs byinhalation w/spacer MDI to Aerosol [] Albuterol Sulfate MDI Albuterol Sulfate 0.083% unit dose by aerosol [] Levalbuterol MDI 2 puffs by inhalation Levalbuterol 1.25 mg unit dose by aerosol [] Ipratropium Stella MDI by inhalation Ipratropium Stella 0.02% unit dose by aerosol [] Combivent (Ipratropium + Albuterol) MDI by inhalation Duoneb (Ipratropium + Albuterol) unit doseby aerosol Treatment Assessment [Frequency/Schedule]: Change frequency to: ACCUNEB Q4 PRN per Protocol, P&T, [facility] Points 0 1 2 3 4 [...] of lumbosacral region Impaired mobility Vasovagal syncope [facility] [address] [place] [address] Chief Complaint and Reason for Visit Chief [...] Cervical spine fracture May 08, 2024 3:15pm Chief Complaint Admit Date Unknown October 11, 2024 11 :54am Additional Source Comments INFORMATION SOURCE (unrecogn ized section and content) DATE CREATED AUTHOR 04/20/2018 [facility] DATE CREATED AUTHOR AUTHOR'S ORGANIZ ATION 11/24/2018 [facility] DATE CREATED AUTHOR AUTHOR'S ORGANIZ ATION 06/14/2022 [facility] DATE CREATED AUTHOR AUTHOR'S ORGANIZ ATION 01/13/2023 [facility] DATE CREATED AUTHOR AUTHOR'S ORGANIZ ATION 09/28/2023 [facility] DATE CREATED AUTHOR AUTHOR'S ORGANIZ ATION 08/10/2024 [facility] EPIC DATE CREATED AUTHOR AUTHOR'S ORGANIZ ATION 10/14/2024 [facility] Reason for Visit (unrecogniz ed section and content) Reason Comments Back Pain Left low back pain r adiates down left leg. Pain flared up last monday Status Reason Specialty Diagnoses / Procedures Referre d By Contact Referred To Contact Diagnoses Intractable back pain Lenny Corral MD [address], [address] [place] [address] [facility] Reason Comments Ingrown Toenail LT grt nail [...] 2024 End: April 13, 2024 Lg Fu DO Attending Provider Active S tart: April 13, 2024 End: April 13, 2024 Team Status: Inactive Member Role Status Ruddy Daniels MD Primary Care Provider Active Start: April 17, 2024 End: April 17, 2024 Lg N Bial[place]i , DO Attending Provider Active S tart: April 17, 2024 End: April 17, 2024 Team Status: Inactive Member Role Status Dates Mami Daniels MD Primary Care Provider Active Start: April 30, 2024 End: April 30, 2024 Lg Fu DO Attending Provider Active S tart: April 30, 2024 End: April 30, 2024 Team Status: Active Member Role Status Dates Mami Daniels MD Primary Care Provider Active Start: January 24, 2024 Son Dean MD Admit Provider Active S tart: January 24, 2024 Aaron Cordoba [facility] Other Provider Active Sta rt: January 24, [...] Other Provider Active Start: F ebruary 2023 End: April 06, 2023 Turner [...] Active Start: April 03, 2023 Katie Pearce NP-C Other Provider Active Start: April 03, 2023 Fiona Magana MD Other Provider Active Start: [place] 2023 Cachorro Real MD Other Provider Active Star t: April 03, 2023 Warner Sood MD Other Provider Active Start: April 03, 2023 Boni Choi MD Other Provider Active Start: [place] 2023 Turner Frank DO Other Provider Active [...] Member Role Status Dates Turner Doss MD [facility] Attending Provider Active Start: June 21, 2023 End: June 21, 2023 Team Status: Inactive Member Role Status Dates Mami Daniels MD Primary Care Provider Active Start: May 08, 2024 End: May 08, 2024 Lg Fu DO Attending Provider Active S tart: May 08, 2024 End: May 08, 2024 Ore Digger Relationship Specialty Start Date End Date Mami Daniels MD [address] [place] [id number] PCP - General Family Medicine 07/24/24 Ore Digger Relationship Specialty Start Date End Date Mami Daniels MD [address] [place] [address] PCP - General [facility] 07/24/24 Ore Digger Relationship Specialty Start Date End Date Mami Daniels MD [address] [place] [address] PCP - General [facility] 07/24/24 Team Status: Inactive Member Role Status Dates Mami Daniels MD Primary Care Provider Active Start: October 11, 2024 End: October 11, 2024 Mami Daniels MD Attending Provider Active Sta rt: October 11, 2024 End: October 11, 2024 Goals (unrecognized section and content) Goals [...] BE BASED ON THE PRIMARY CLINICAL RECORDS. [facility] [employer] [facility]. provides no warranty or guarantee of the accuracy or completeness of information in this document.
[2024-10-14 11:35] LABS: Hematocrit 37.9 % (36.0-48.0); Hemoglobin 13.0 g/dL (12.0-16.0); Immature Granulocytes Abs Auto 0.05 10^3/uL (0.00-0.03); Immature Granulocytes Pct Auto 0.5 % (0.0-0.5); Lymphocytes Absolute Auto 2.5 10^3/uL (1.2-3.8); Mean Corpuscular HGB Conc 34.3 g/dL (29.9-35.2); Mean Corpuscular Hemoglobin 31.4 pg (26.7-34.0); Mean Corpuscular Volume 91.5 fL (81.0-99.0); Platelet Count 352 10^3/uL (150-450); Red Blood Count 4.14 10^6/uL (4.20-5.40); White Blood Count 9.4 10^3/uL (4.0-11.0)
[2024-10-14 11:57] LABS: NT Pro B Type Natriuretic Pept 504.0 pg/mL (<=1800.0)
== END 2024-10-14 10:59 | disposition home or self-care (01) ==
LOC: LAB 10:59
PROVIDERS: PCP Family Medicine; Visit Provider Family Medicine
DX: K92.2 Gastrointestinal hemorrhage, unspecified (principal); E87.6 Hypokalemia
CPT/HCPCS: 36415; 83880; 85025